=== PATIENT | male | born 1970 | race Caucasian/White ===

== ENCOUNTER 2017-09-07 08:57 | Outpatient (RCR) | payer MEDICAID, SELFPAY ==
--- NOTE | 2017-09-09 12:03 | HP.PTEVAL_ITS ---
Patient's Visit Information CAYLA GRANADOS is a 47 year old M referred to Physical Therapy by DO DAVID Rios with a diagnosis of RA, bilateral LE edema, cervical spondylosis, low back pain, COPD. Date of Evaluation: 09/07/17 Physical Therapist: Zelalem Aquino - Visit Plan Frequency: 1x/Week Duration: 1 Week Plan: Pt. was assessed for need of motorized wc. He has limited functional mobility and walking upto 115ft. this date. He had marked fatigue and dyspnea limiting further ambulation. He also reported increased lumbar spine and BLE pain contributing to his difficulty walking. - Subjective Subjective: Pt. is here today for his initial evaluation with diagnosis of RA, BLE edema, cervical spondylosis, morbid obesity, low back pain, and COPD. Pt. reports having increased difficulty with walking, increased pain, increased UB tremmoring, and increased difficulty with breathing with all functional mobility. Pt. reports increased low back pain, cervical pain, BLE pain with all functional mobility. Pt. is currently on 4L of continous O2 with all mobility, but continues to report increased fatigue. Pt. reports staying within home due to frequent fatigue and difficulty walking. He only leaves for short distances and to go to physician office. He has previously went to grocery store with use of motorized wc, but even walking through parking lot is giving him difficulty. He also reports new onset of RUE tremmoring, but does not know cause. He has a history of neck and back pain that also causes his difficulty with walking for more than short distances. He is talking meds for pain, RA, COPD. He is hopeful to get a WC to allow for him to be more active with his family and get out in to community with increased tolerance. - Pain Bilateral LEs Pain Intensity (Out of 10): 2 Pain Intensity Range: 6 Lumbar spine Pain Intensity (Out of 10): 3 Pain Intensity Range: 1, 6 Cervical spine Pain Intensity (Out of 10): 3 Pain Intensity Range: 1, 6 - Objective POSTURE: Pt. is morbidly obese. Pt. has fwrd flexed posture throughout. Pt. has wide JOEL in stance. Pt. has difficulty correcting posture. Pt. has FH and rounded shoulders. PALPATION: Pt. has increased tenderness throughout bilateral LEs from ankle down. Pt. has increased lumbar spine paraspinal pain, and cervical erector spinea pain. NEUROLOGICAL: Pt. reports deminished sensation to light touch, but normal sensation to sharp touch throughout bilateral LEs. Pt. has 2+ achilles and patellar DTR. Pt. has difficulty with rising on heels and toes, uses balance aide to correct. BALANCE: FGA 06/01. ROM : Pt. has normal knee and hip ROM, tight HS. LUMBAR SPINE: flexion mod loss increase NW, ext mod loss increase NW, SB mod loss increase NW bilat, rotatioon mod loss increase NW bilat. MMT: RLE- ankle 5/5 throughout; knee- ext 4/5, flexion 4/5; hip- flexion 4-/5, abd 4-/5, ext 4/5. LLE- ankle 5/5 throughout; knee ext 4/5, flexion 4/5; hip- flexion 4-/5, abd 4-/5, ext 4/5. Core strength- poor. GAIT: Pt. ambulates with single point cane. He has wide JOEL with frequent standing rest periods. He was able to ambulate 115ft., but required 3 minutes and 27secs to ambulated that far. Pt. has SpO2 of 98% at start dropped to 89% at end. Pt. had visible dyspnea and reports increased pain in BLEs and lumbar spine limiting ambulation. Pt. has LOB x1, but able to self correct with retro stepping pattern. STAIRS: Pt. was able to negotiate 3 steps with BHR, but had difficulty descending. Pt. reports high levels of dyspnea and SpO2 of 91% after trial. - Balance Scores Functional Gait Assessment Score: 10 % Disability: 66.6700 - Goals Goal 1:: Pt. to be assessed for need for WC. - Rehabilitation Potential Physical Therapy Diagnosis: Pt. has signs and symptoms consistent with difficulty with gait, and functional mobility secondary to RA, COPD and BLE/ spinal pain. Pt. has diffiuclty walking distances greater than 120ft., he is able to complete all transfers, but community mobility is reduced due to pain and COPD. Pt would benefit from a wheel chair to allow for increased community mobility and increased independence in community. He would most likely be limited with similar issues with manual wc due to limited cardiovascular fitness where as a motorized chair would provide greater freedom. Rehabilitation Potential: Fair - Anticipated Interventions Patient/Client Instruction: Educate patient on: Condition, Plan of Care, Risk Factors, Benefits of Fitness Program For the Purpose of:: To improve health and function, To foster healthy habits, To improve decision making, To facilitate caregiver knowledge, To improve self management, To prevent re-injury, To improve ability to perform tasks related to life management, To improve tolerance to ADL's Therapeutic Exercise to Include: Strength training, Power training, Postural training, Flexibilty training, Gait and locomotor training, Passive ROM, Active ROM For the Purpose of:: To decrease pain, To increase ROM, To improve nutrient delivery to tissue Thank you for the opportunity to evaluate your patient. For Medicare and Medicare HMO plans, please review the plan of care and approve it. It will need to be FAXED BACK to us at [phone] for Medicare purposes. Please let me know if there are questions or concerns regarding this plan of care. Physician Signature: Date:
--- NOTE | 2018-01-03 19:56 | HP.PT.NRP ---
HP - Discharge Summary (1) - Patient Information CAYLA GRANADOS was seen in my office for initial evaluation on 09/07/17. The following Plan of Care was established for this patient: Initial Frequency: 1x/Week Initial Duration: 1 Week - Anticipated Interventions Patient/Client Instruction: Educate patient on: Condition, Plan of Care, Risk Factors, Benefits of Fitness Program For the Purpose of:: To improve health and function, To foster healthy habits, To improve decision making, To facilitate caregiver knowledge, To improve self management, To prevent re-injury, To improve ability to perform tasks related to life management, To improve tolerance to ADL's Therapeutic Exercise to Include: Strength training, Power training, Postural training, Flexibilty training, Gait and locomotor training, Passive ROM, Active ROM For the Purpose of:: To decrease pain, To increase ROM, To improve nutrient delivery to tissue This patient was last seen in our office 09/07/17. Pertinent comments regarding their Physical therapy will appear below: Pt. was seen for WC evaluation. Pt. has not been seen since. See evaluation for recommendations. Pt. will be DC from PT at this point in time. At this point I will be discontinuing this patient from physical therapy. I would be happy to see this patient again in the future if found appropriate by the physician. Thank you! Zelalem Aquino
== END 2017-09-07 19:00 | disposition home or self-care (01) ==
LOC: PT 08:57
PROVIDERS: Family Provider Family Medicine; PCP Family Medicine; Visit Provider Family Medicine
DX: M06.9 Rheumatoid arthritis, unspecified (principal); R60.9 Edema, unspecified; M47.812 Spondylosis without myelopathy or radiculopathy, cervical region; E66.01 Morbid (severe) obesity due to excess calories; M54.5 Low back pain; J44.9 Chronic obstructive pulmonary disease, unspecified
CPT/HCPCS: 97163

== ENCOUNTER → 2017-12-10 07:59 | Outpatient (CLI) | payer MEDICAID, SELFPAY ==
[2017-12-10 12:36] LABS: Absolute Lymphocyte Count 2.23 X10^3/ul (0.83-4.51); Absolute Neutrophil Count 4.3 X10^3/uL (2.0-7.7); Basophil# 0.03 X10^3/uL; Basophil% 0.4 % (0-1); Eosinophils% 2.7 % (0-5); Erythrocyte Sedimentation Rate 46 mm/hr (0-15); Hematocrit 40.5 % (40-54); Hemoglobin 12.5 g/dl (13.0-16.5); Lymphocyte # 2.23 X10^3/ul (4.0); Lymphocyte % 30.4 % (19-41); Mean Corp Hgb Conc 30.9 g/gl (32-36); Mean Corpuscular Hgb 28.1 pg (27.0-32.0); Monocyte# 0.55 X10^3/uL; Monocyte% 7.5 % (0-10); Neutrophil # 4.32 X10^3/uL (2.7-7.7); Neutrophil % 58.9 % (47-70); Platelet Count 266 K/mm3 (150-450); RBC Distribution Width CV 14.4 % (11.6-14.6); RBC Distribution Width SD 47.2 fl (35.1-43.9); Red Blood Count 4.45 M/mm3 (4.6-6.2); White Blood Count 7.3 K/mm3 (4.4-11.0)
[2017-12-10 12:48] LABS: POSITIVE COUNT NO; POSITIVE DIFFERENTIAL NO; POSITIVE MORPHOLOGY NO
[2017-12-10 12:56] LABS: Hemoglobin A1c 6.8 % (4.2-6.3)
[2017-12-10 12:59] LABS: ALB/GLOB Ratio 0.7 RATIO (0.9-2.4); AST(SGOT) 20 U/L (15-37); Alanine Aminotransfer ALT/SGPT 23 U/L (16-61); Albumin, Serum 2.9 g/dL (3.2-5.0); Alkaline Phosphatase 79 U/L (45-117); Anion Gap 10 (5-15); BUN 6 mg/dL (7-18); BUN/Creat Ratio 5.6 RATIO (10-20); Calcium,Total 8.7 mg/dL (8.5-10.1); Chloride 102 mmol/L (98-107); Cholesterol 182 mg/dL (200); Creatinine, Serum 1.07 mg/dL (0.70-1.30); EST Glomerular Filtration Rate 78 mL/min (>60); Est Glom Filt Rate - Afr Amer 95 mL/min (>60); Globulin 4.3 g/dL (2.2-4.2); Glucose 99 mg/dL (74-106); High Density Lipoprotein 31 mg/dL; Potassium 3.7 mmol/L (3.5-5.1); Protein, Total 7.2 g/dL (6.4-8.2); Sodium Level 140 mmol/L (136-145); Thyroid Stim Hormone (TSH) 2.53 uIU/mL (0.358-3.74); Triglycerides 153 mg/dL; Very Low Density Lipoprotein 31 mg/dL (5-40)
== END ==
PROVIDERS: Family Provider Family Medicine; PCP Family Medicine; Visit Provider Family Medicine
DX: E03.9 Hypothyroidism, unspecified (principal); E11.9 Type 2 diabetes mellitus without complications; E78.5 Hyperlipidemia, unspecified; R60.9 Edema, unspecified; M06.9 Rheumatoid arthritis, unspecified
CPT/HCPCS: 36415; 80053; 80061; 83036; 84443; 85025; 85652; 86140

== ENCOUNTER 2017-12-17 11:13 | Outpatient (RCR) | payer MEDICAID, SELFPAY ==
--- NOTE | 2017-12-21 14:32 | HP.OTEVAL_ITS ---
Patient's Visit Information CAYLA GRANADOS is a 47 year old M, referred to Occupational Therapy by Clau Simeon MD, with a diagnosis of BLE lymphedema venous insuficincy. Date of Evaluation: 12/17/17 Occupational Therapist: Viviana Yeung, CLARENCE/Natan, CHT - Subjective Subjective: Pt states he has RA and pt states he has done two infusions for the past year- pt states he is having difficuty with swelling in his legs-pt states his legs are hurting and the top of his feet hurt. pt states he has used diabetic socks. pt states he has gained 83# of water with prednozone. Pt states the water pill is helpful. - Pain bilateral LE 3 Pain Intensity Range: 3, 9 - Lymphedema (Circumferential Measure) Ankle: Right 36 left 36 Lower calf: right 38 left 39 Largest calf: right 55 left 57 Below knee: right 47 left 46 - Lower Limb Functional Index Lower Extremity Functional Score: 19 - Goals Demonstrate a 20% reduction in edema by d/c: Yes Demonstrate adequate knowledge of self-bangaging by 1st week: Yes Demonstrate adequate knowledge of self-massage by 2nd week: Yes Demonstrate adequate knowledge skin care/prec by 2nd week: Yes Demonstrate adequate knowledge therapeutic exercises by d/c: Yes Select approp compression garment w/donning/care/wear by d/c: Yes - Rehabilitation General Assessment: Pt demo with BLE edema- noted pitting- pt demo need for compression socks and ed. on circulation and lymphedema mtg. pt was ed. on compression socks 20-30mmHg knee high- pt aslo ed on alternative compression garments with velcro closer- pt demo understanding. pt was also ed on beneficial ex to assist with fluid circulation. pt demo understanding. pt ed. this session on skin care and precautions, pt demo understanding. Rehabilitation Potential: Questionable - Anticipated Interventions Anticipated Interventions: Education re Diagnosis, Manual Lymph Drainage, Education re Life-long lymphedema Management, Education re Self-Bandaging Techniques, Education re Skin Care and Precautions, Education re Self Massage Techniques, Education re Correct Donning Tech,Care&Wearing Sched Comp Garments, Caregiver Training, Home Program - Visit Plan Frequency: 1x/Week Duration: 4 Weeks TEXT: Thank you for the opportunity to evaluate your patient. For Medicare and Medicare HMO plans, please review the plan of care and approve it. It will need to be FAXED BACK to us at [phone] for Medicare purposes. Please let me know if there are questions or concerns regarding this plan of care. Physician Signature: Date:
--- NOTE | 2018-01-12 11:30 | HP.OT.NRP ---
HP - Discharge Summary - Patient Information CAYLA GRANADOS was seen in my office for initial evaluation on 12/17/17. The following Plan of Care was established for this patient: Initial Frequency: 1x/Week Initial Duration: 4 Weeks - Anticipated Interventions Anticipated Interventions: Education re Diagnosis, Manual Lymph Drainage, Education re Life-long lymphedema Management, Education re Self-Bandaging Techniques, Education re Skin Care and Precautions, Education re Self Massage Techniques, Education re Correct Donning Tech,Care&Wearing Sched Comp Garments, Caregiver Training, Home Program This patient was last seen in our office 12/17/17. Pertinent comments regarding their Occupational therapy will appear below: Pt was seen for intial OT eval only- no further apts have been scheduled - pt is D/C at no further apts have been scheduled. At this point I will be discontinuing this patient from occupational therapy. I would be happy to see this patient again in the future if found appropriate by the physician. Thank you! Viviana Yeung, OTR/L, CHT
== END 2017-12-17 19:00 | disposition home or self-care (01) ==
LOC: OT 11:13
PROVIDERS: Family Provider Family Medicine; PCP Family Medicine; Visit Provider Family Medicine
DX: R60.9 Edema, unspecified (principal)
CPT/HCPCS: 97166

== ENCOUNTER → 2017-12-22 09:41 | Outpatient (CLI) | payer MEDICAID, SELFPAY | PROVIDERS: Family Provider Family Medicine; PCP Family Medicine; Visit Provider Family Medicine | DX: M54.5 Low back pain (principal) | CPT/HCPCS: 87086; 87088 ==

== ENCOUNTER → 2018-08-27 08:07 | Outpatient (CLI) | payer MEDICAID, SELFPAY ==
[2018-08-27 12:13] LABS: Erythrocyte Sedimentation Rate 36 mm/hr (0-15)
[2018-08-27 12:29] LABS: ALB/GLOB Ratio 0.7 RATIO (0.9-2.4); AST(SGOT) 9 U/L (15-37); Alanine Aminotransfer ALT/SGPT 33 U/L (16-61); Alkaline Phosphatase 105 U/L (45-117); Anion Gap 9 (5-15); BUN 17 mg/dL (7-18); BUN/Creat Ratio 15.3 RATIO (10-20); Calcium,Total 9.3 mg/dL (8.5-10.1); Chloride 101 mmol/L (98-107); Cholesterol 224 mg/dL (200); Creatinine, Serum 1.11 mg/dL (0.70-1.30); EST Glomerular Filtration Rate 75 mL/min (>60); Est Glom Filt Rate - Afr Amer 91 mL/min (>60); Free T3 2.3 pg/mL (2.18-3.98); Globulin 4.6 g/dL (2.2-4.2); Glucose 115 mg/dL (74-106); High Density Lipoprotein 66 mg/dL; Potassium 4.2 mmol/L (3.5-5.1); Protein, Total 7.6 g/dL (6.4-8.2); Sodium Level 139 mmol/L (136-145); T4 Free Direct 1.42 ng/dL (0.76-1.46); Thyroid Stim Hormone (TSH) 1.31 uIU/mL (0.358-3.74); Triglycerides 112 mg/dL; Very Low Density Lipoprotein 22 mg/dL (5-40); Vitamin B12 533 pg/mL (211-911); Vitamin D,25 Hydroxy 15.8 ng/mL (29.95-100.01)
[2018-08-27 12:34] LABS: Absolute Lymphocyte Count 4.32 X10^3/ul (0.83-4.51); Basophil# 0.03 X10^3/uL; Basophil% 0.2 % (0-1); Eosinophil# 0.09 X10^3/uL; Eosinophils% 0.5 % (0-5); Lymphocyte # 4.32 X10^3/ul (4.0); Lymphocyte % 23.3 % (19-41); Mean Corp Hgb Conc 30.6 g/gl (32-36); Mean Corpuscular Hgb 26.5 pg (27.0-32.0); Mean Corpuscular Volume 86.6 fL (80-94); Monocyte# 0.99 X10^3/uL; Monocyte% 5.3 % (0-10); Neutrophil # 12.96 X10^3/uL (2.7-7.7); Neutrophil % 70.1 % (47-70); Platelet Count 319 K/mm3 (150-450); RBC Distribution Width CV 16.6 % (11.6-14.6); RBC Distribution Width SD 52.7 fl (35.1-43.9); Red Blood Count 5.66 M/mm3 (4.6-6.2); White Blood Count 18.5 K/mm3 (4.4-11.0)
[2018-08-27 12:36] LABS: POSITIVE COUNT NO; POSITIVE DIFFERENTIAL NO; POSITIVE MORPHOLOGY NO
[2018-08-30 08:38] LABS: CCP IgG Antibodies > 250 units (0-19)
== END ==
LOC: LAB.FUTURE 07-18 23:20 → BFHLAB 08-08 09:43
PROVIDERS: Family Provider Family Medicine; PCP Family Medicine; Visit Provider Family Medicine
DX: M06.9 Rheumatoid arthritis, unspecified (principal); E11.9 Type 2 diabetes mellitus without complications; E03.9 Hypothyroidism, unspecified; R60.9 Edema, unspecified; M79.7 Fibromyalgia; E55.9 Vitamin D deficiency, unspecified; E53.8 Deficiency of other specified B group vitamins; R53.83 Other fatigue
CPT/HCPCS: 36415; 80053; 80061; 82306; 82607; 84439; 84443; 84481; 85025; 85652; 86140; 86200

== ENCOUNTER → 2018-10-27 09:58 | Outpatient (CLI) | payer MEDICAID, SELFPAY ==
--- NOTE | 2018-10-27 10:03 | RAD_ITS ---
STUDY: X-RAY - LEFT RADIUS AND ULNA REASON FOR EXAM: Male, 48 years old. Sized pain in the left arm without trauma. TECHNIQUE: 2 view(s) of the forearm. COMPARISON: Left wrist and left humerus, October 27, 2018. FINDINGS: There is no demonstrated soft tissue swelling. Normal visualized radius. Normal visualized ulna. There is no acute fracture, dislocation or destructive osseous pathology. The wrist and elbow are grossly normal. RAD/Forearm 2 Views IMPRESSION: Normal x-ray examination of the radius and ulna. Electronically Signed: David Nagy DO at 15:19 EDT Tel [phone], Service support ,
--- NOTE | 2018-10-27 10:03 | RAD_ITS ---
STUDY: X-RAY - LEFT HUMERUS REASON FOR EXAM: Male, 48 years old. Nontraumatic pain in the left arm. TECHNIQUE: 4 view(s) of the humerus. COMPARISON: None. FINDINGS: There is a large bone island in the neck of the humeral neck. There is no acute fracture or dislocation. Both the shoulder and elbow appear grossly normal. There is no demonstrated fracture or osseous destructive process. There is no demonstrated soft tissue abnormality. RAD/Humerus min 2 Views IMPRESSION: No acute abnormality of the left humerus. Electronically Signed: David Nagy DO at 15:19 EDT Tel [phone], Service support ,
--- NOTE | 2018-10-27 10:03 | RAD_ITS ---
STUDY: X-RAY CHEST REASON FOR EXAM: Male, 48 years old. . TECHNIQUE: PA and lateral views of the chest. COMPARISON: July 14, 2017. FINDINGS: The lungs are well-expanded. A stable calcified granuloma in the right upper lobe. No new masses or infiltrates are seen. There is no demonstrated pleural abnormality. Normal size heart. Normal mediastinum and albin. Normal visualized pulmonary arteries. Normal visualized aortic arch and descending thoracic aorta. There are diffuse degenerative changes of the visualized thoracic spine. Normal visualized ribs, clavicles, and shoulders. There is no demonstrated abnormality of the visualized soft tissue structures of the upper abdomen. RAD/Chest PA and Lateral IMPRESSION: Old granulomatous disease without acute cardiopulmonary process or interval change. Electronically Signed: David Nagy DO at 15:20 EDT Tel [phone], Service support ,
--- NOTE | 2018-10-27 10:06 | RAD_ITS ---
STUDY: X-RAY - LEFT WRIST REASON FOR EXAM: Male, 48 years old. Pain without injury. TECHNIQUE: 3 view(s) of the wrist were obtained. COMPARISON: None. FINDINGS: Normal visualized distal radius and ulna. Normal radiocarpal articulation. Normal distal radioulnar articulation. Normal carpal bones. Normal carpal articulations. Normal carpometacarpal articulation of the thumb. Normal second through fifth carpometacarpal articulations. Normal visualized metacarpal bones. The soft tissue structures are unremarkable. RAD/Wrist min 3 Views IMPRESSION: Normal x-ray examination of the wrist. Electronically Signed: David Nagy DO at 15:18 EDT Tel [phone], Service support ,
[2018-10-27 12:43] LABS: Absolute Lymphocyte Count 4.05 X10^3/ul (0.83-4.51); Absolute Neutrophil Count 11.1 X10^3/uL (2.0-7.7); Basophil# 0.04 X10^3/uL; Basophil% 0.2 % (0-1); Eosinophil# 0.17 X10^3/uL; Eosinophils% 1.1 % (0-5); Hematocrit 48.1 % (40-54); Hemoglobin 14.6 g/dl (13.0-16.5); Lymphocyte # 4.05 X10^3/ul (4.0); Mean Corp Hgb Conc 30.4 g/gl (32-36); Mean Corpuscular Hgb 27.7 pg (27.0-32.0); Mean Corpuscular Volume 91.3 fL (80-94); Mean Platelet Vol. 10.1 fl (6.2-12.0); Monocyte# 0.74 X10^3/uL; Monocyte% 4.6 % (0-10); Neutrophil % 68.5 % (47-70); Platelet Count 285 K/mm3 (150-450); RBC Distribution Width CV 15.4 % (11.6-14.6); RBC Distribution Width SD 50.4 fl (35.1-43.9); Red Blood Count 5.27 M/mm3 (4.6-6.2); White Blood Count 16.2 K/mm3 (4.4-11.0)
[2018-10-27 12:44] LABS: POSITIVE COUNT NO; POSITIVE DIFFERENTIAL NO; POSITIVE MORPHOLOGY NO
[2018-10-27 13:23] LABS: ALB/GLOB Ratio 0.7 RATIO (0.9-2.4); AST(SGOT) 13 U/L (15-37); Alanine Aminotransfer ALT/SGPT 31 U/L (16-61); Alkaline Phosphatase 123 U/L (45-117); Anion Gap 9 (5-15); BUN 8 mg/dL (7-18); Calcium,Total 9.2 mg/dL (8.5-10.1); Chloride 101 mmol/L (98-107); EST Glomerular Filtration Rate 84 mL/min (>60); Est Glom Filt Rate - Afr Amer 102 mL/min (>60); Globulin 4.4 g/dL (2.2-4.2); Glucose 144 mg/dL (74-106); Potassium 3.6 mmol/L (3.5-5.1); Protein, Total 7.4 g/dL (6.4-8.2); Sodium Level 138 mmol/L (136-145)
== END ==
LOC: LAB.FUTURE 07-20 08:15 → MTLAB 08-08 09:43
PROVIDERS: Family Provider Family Medicine; PCP Family Medicine; Referring Provider Family Medicine; Visit Provider Family Medicine
DX: M06.9 Rheumatoid arthritis, unspecified (principal); R53.83 Other fatigue; M79.602 Pain in left arm; M25.532 Pain in left wrist; R05 Cough; Z51.81 Encounter for therapeutic drug level monitoring
CPT/HCPCS: 36415; 71046; 73060; 73090; 73110; 80053; 85025

== ENCOUNTER → 2019-02-16 | Outpatient (CLI) | payer MEDICAID, SELFPAY ==
--- NOTE | 2019-02-16 10:00 | LES_PTH ---
PATIENT: CAYLA GRANADOS LOC: [facility] U#:[id number] AGE/SX: 48/M ROOM: RE02/16/[address]: Dr. Ida Norris DO : 1970 BED: DIS: 02/16/2019 SPEC #: [id number] RECD: 02/16/19 11:47 STATUS: JOSH CASSIE #: [id number] ROSIE: 02/16/19 10:[address]: Ida Norris DEPT: SURGICAL PATHOLOGY RECD BY: Piter Amador Tissues: Skin of forearm, NOS Procedures: Surgery Specimen Level IV HEADER OPERATION: Punch biopsy left lateral forearm PRE-OP DIAGNOSIS: Folliculitis vs rheumatoid nodule TISSUE SUBMITTED: Left lateral forearm MICROSCOPIC DIAGNOSIS Left forearm skin, punch biopsy: Keratin debris in deep dermis. Minimal chronic perivascular inflammation. No evidence of malignancy. AM:wilfrido 02/17/19 COMMENT No distinct rheumatoid nodule is identified. If a lesion is present at this site, re-biopsy is recommended if clinically indicated. Case has been reviewed in consultation with Dr. De Los Santos who concurs with the above diagnosis. IDC:SJ MICROSCOPIC DESCRIPTION Slides are reviewed. GROSS DESCRIPTION Received is one container labeled with the patient's name and not further designated. The specimen consists of a round piece of pradhan-white shaved skin measuring 0.4 x 0.4 x 0.2 cm. The entire specimen is submitted in one cassette. / PRIYA:wilfrido 02/16/19 TC:5 CPT: 17394
== END | disposition home or self-care (01) ==
LOC: BFHLAB 10:41
PROVIDERS: Family Provider Family Medicine; PCP Family Medicine; Visit Provider Family Medicine
DX: L08.9 Local infection of the skin and subcutaneous tissue, unspecified (principal)
CPT/HCPCS: 88305

== ENCOUNTER → 2019-04-06 | Outpatient (CLI) | payer MEDICAID, SELFPAY ==
[2019-04-06 10:19] LABS: Erythrocyte Sedimentation Rate 38 mm/hr (0-15)
[2019-04-06 10:22] LABS: Absolute Lymphocyte Count 4.26 X10^3/uL (0.83-4.51); Absolute Neutrophil Count 10.8 X10^3/uL (2.0-7.7); Basophil# 0.07 X10^3/uL; Basophil% 0.4 % (0-1); Eosinophil# 0.13 X10^3/uL; Eosinophils% 0.8 % (0-5); Hematocrit 46.7 % (40-54); Hemoglobin 13.9 g/dL (13.0-16.5); Lymphocyte # 4.26 X10^3/ul (4.0); Lymphocyte % 26.6 % (19-41); Mean Corp Hgb Conc 29.8 g/dL (32-36); Mean Corpuscular Hgb 26.7 pg (27.0-32.0); Mean Corpuscular Volume 89.6 fL (80-94); Monocyte# 0.73 X10^3/uL; Monocyte% 4.6 % (0-10); NRBC Flagged by Analyzer 0 % (0-5); Neutrophil # 10.76 X10^3/uL (2.7-7.7); Neutrophil % 67.1 % (47-70); Platelet Count 306 K/mm3 (150-450); RBC Distribution Width CV 13.9 % (11.6-14.6); RBC Distribution Width SD 45.1 fl (35.1-43.9); Red Blood Count 5.21 M/mm3 (4.6-6.2)
[2019-04-06 10:51] LABS: Vitamin B12 296 pg/mL (211-911); Vitamin D,25 Hydroxy 22.4 ng/mL (29.95-100.01)
[2019-04-06 11:04] LABS: ALB/GLOB Ratio 0.6 RATIO (0.9-2.4); AST(SGOT) 9 U/L (15-37); Alanine Aminotransfer ALT/SGPT 21 U/L (16-61); Albumin, Serum 2.8 g/dL (3.2-5.0); Alkaline Phosphatase 99 U/L (45-117); Anion Gap 9 (5-15); BUN 12 mg/dL (7-18); BUN/Creat Ratio 12.2 RATIO (10-20); Calcium,Total 8.8 mg/dL (8.5-10.1); Chloride 101 mmol/L (98-107); Cholesterol 217 mg/dL (200); Creatinine, Serum 0.98 mg/dL (0.70-1.30); EST Glomerular Filtration Rate 86 mL/min (>60); Est Glom Filt Rate - Afr Amer 104 mL/min (>60); Free T3 2.3 pg/mL (2.18-3.98); Globulin 4.4 g/dL (2.2-4.2); Glucose 93 mg/dL (74-106); High Density Lipoprotein 53 mg/dL; Iron 63 ug/dL (65-175); Potassium 3.5 mmol/L (3.5-5.1); Protein, Total 7.2 g/dL (6.4-8.2); Sodium Level 141 mmol/L (136-145); T4 Free Direct 1.59 ng/dL (0.76-1.46); Thyroid Stim Hormone (TSH) 0.82 uIU/mL (0.358-3.74); Triglycerides 119 mg/dL; Very Low Density Lipoprotein 24 mg/dL (5-40)
[2019-04-08 12:30] LABS: CCP IgG Antibodies > 250 units (0-19)
== END | disposition home or self-care (01) ==
PROVIDERS: Family Provider Family Medicine; PCP Family Medicine; Referring Provider Family Medicine; Visit Provider Family Medicine
DX: E11.9 Type 2 diabetes mellitus without complications (principal); M06.9 Rheumatoid arthritis, unspecified; R60.9 Edema, unspecified; E78.5 Hyperlipidemia, unspecified; E03.9 Hypothyroidism, unspecified; R53.83 Other fatigue; E55.9 Vitamin D deficiency, unspecified; E53.8 Deficiency of other specified B group vitamins; D64.9 Anemia, unspecified; Z51.81 Encounter for therapeutic drug level monitoring
CPT/HCPCS: 36415; 80053; 80061; 82306; 82607; 83540; 84439; 84443; 84481; 85025; 85652; 86140; 86200

== ENCOUNTER → 2019-08-29 08:27 | Outpatient (CLI) | payer MEDICAID, SELFPAY ==
[2019-08-29 12:21] LABS: Erythrocyte Sedimentation Rate 76 mm/hr (0-20)
[2019-08-29 12:24] LABS: Absolute Lymphocyte Count 3.95 X10^3/uL (0.83-4.51); Absolute Neutrophil Count 10.2 X10^3/uL (2.0-7.7); Basophil# 0.07 X10^3/uL; Basophil% 0.5 % (0-1); Eosinophil# 0.22 X10^3/uL; Eosinophils% 1.4 % (0-5); Hematocrit 46.5 % (40-54); Hemoglobin 13.4 g/dL (13.0-16.5); Lymphocyte # 3.95 X10^3/ul (4.0); Lymphocyte % 25.9 % (19-41); Mean Corp Hgb Conc 28.8 g/dL (32-36); Mean Corpuscular Hgb 24.7 pg (27.0-32.0); Mean Corpuscular Volume 85.8 fL (80-94); Mean Platelet Vol. 9.5 fl (6.2-12.0); Monocyte# 0.71 X10^3/uL; Monocyte% 4.7 % (0-10); NRBC Flagged by Analyzer 0 % (0-5); Neutrophil # 10.21 X10^3/uL (2.7-7.7); Neutrophil % 66.8 % (47-70); Platelet Count 316 K/mm3 (150-450); RBC Distribution Width CV 14.8 % (11.6-14.6); RBC Distribution Width SD 46.1 fl (35.1-43.9); Red Blood Count 5.42 M/mm3 (4.6-6.2); White Blood Count 15.3 K/mm3 (4.4-11.0)
[2019-08-29 12:57] LABS: ALB/GLOB Ratio 0.6 RATIO (0.9-2.4); AST(SGOT) 10 U/L (15-37); Alanine Aminotransfer ALT/SGPT 18 U/L (16-61); Albumin, Serum 2.7 g/dL (3.2-5.0); Alkaline Phosphatase 110 U/L (45-117); Anion Gap 7 (5-15); BUN 11 mg/dL (7-18); BUN/Creat Ratio 10.2 RATIO (10-20); Calcium,Total 8.7 mg/dL (8.5-10.1); Chloride 100 mmol/L (98-107); Creatinine, Serum 1.08 mg/dL (0.70-1.30); EST Glomerular Filtration Rate 77 mL/min (>60); Est Glom Filt Rate - Afr Amer 93 mL/min (>60); Free T3 2.8 pg/mL (2.18-3.98); Globulin 4.4 g/dL (2.2-4.2); Glucose 123 mg/dL (74-106); Potassium 3.3 mmol/L (3.5-5.1); Protein, Total 7.1 g/dL (6.4-8.2); Sodium Level 137 mmol/L (136-145); T4 Free Direct 1.36 ng/dL (0.76-1.46); Thyroid Stim Hormone (TSH) 1.22 uIU/mL (0.358-3.74)
[2019-08-31 11:35] LABS: CCP IgG Antibodies > 250 units (0-19)
== END ==
PROVIDERS: PCP Family Medicine; Referring Provider Family Medicine; Visit Provider Family Medicine
DX: M06.9 Rheumatoid arthritis, unspecified (principal); E03.9 Hypothyroidism, unspecified; Z51.81 Encounter for therapeutic drug level monitoring
CPT/HCPCS: 36415; 80053; 84439; 84443; 84481; 85025; 85652; 86140; 86200

== ENCOUNTER → 2019-09-29 | Outpatient (CLI) | payer MEDICAID, SELFPAY ==
--- NOTE | 2019-09-29 06:39 | CT_ITS ---
STUDY: CT BRAIN WITHOUT CONTRAST REASON FOR EXAM: Male, 49 years old. Facial numbness RADIATION DOSAGE (If Supplied By Facility): CTDIvol = ( 44.99 ) mGy, DLP = ( 812.98 ) mGycm TECHNIQUE: Transaxial CT imaging of the brain was performed without administration of intravenous contrast material. Individualized dose optimization techniques were used for this CT. COMPARISON: No relevant priors. FINDINGS: Brain parenchyma is without focal lesions, mass effect, acute intracranial hemorrhage, extra parenchymal fluid collections, hydrocephalus or herniation. The skull is intact. CT/Brain/Head without Contrast IMPRESSION: 1. Normal CT brain. Electronically Signed: Usman Almonte, at 15:19 EST Tel , Service support ,
== END | disposition home or self-care (01) ==
LOC: CT 06:38
PROVIDERS: PCP Family Medicine; Referring Provider Family Medicine; Visit Provider Family Medicine
DX: R20.0 Anesthesia of skin (principal)
CPT/HCPCS: 70450

== ENCOUNTER → 2019-12-06 | Outpatient (CLI) | payer MEDICAID, SELFPAY ==
[2019-12-06 09:52] LABS: Absolute Lymphocyte Count 4.75 X10^3/uL (0.83-4.51); Absolute Neutrophil Count 9.4 X10^3/uL (2.0-7.7); Basophil# 0.08 X10^3/uL; Basophil% 0.5 % (0-1); Eosinophil# 0.31 X10^3/uL; Hematocrit 45.2 % (40-54); Hemoglobin 13.3 g/dL (13.0-16.5); Lymphocyte # 4.75 X10^3/ul (4.0); Mean Corp Hgb Conc 29.4 g/dL (32-36); Mean Corpuscular Hgb 25.6 pg (27.0-32.0); Mean Corpuscular Volume 86.9 fL (80-94); Monocyte# 0.68 X10^3/uL; Monocyte% 4.4 % (0-10); NRBC Flagged by Analyzer 0 % (0-5); Neutrophil # 9.39 X10^3/uL (2.7-7.7); Neutrophil % 61.5 % (47-70); Platelet Count 318 K/mm3 (150-450); RBC Distribution Width CV 16.2 % (11.6-14.6); RBC Distribution Width SD 49.6 fl (35.1-43.9); White Blood Count 15.3 K/mm3 (4.4-11.0)
[2019-12-06 10:05] LABS: Erythrocyte Sedimentation Rate 46 mm/hr (0-20)
[2019-12-06 10:12] LABS: ALB/GLOB Ratio 0.6 RATIO (0.9-2.4); AST(SGOT) 13 U/L (15-37); Alanine Aminotransfer ALT/SGPT 20 U/L (16-61); Albumin, Serum 2.7 g/dL (3.2-5.0); Alkaline Phosphatase 109 U/L (45-117); Anion Gap 6 (5-15); BUN 8 mg/dL (7-18); BUN/Creat Ratio 7.7 RATIO (10-20); Chloride 102 mmol/L (98-107); Creatinine, Serum 1.04 mg/dL (0.70-1.30); EST Glomerular Filtration Rate 80 mL/min (>60); Est Glom Filt Rate - Afr Amer 97 mL/min (>60); Free T3 2.9 pg/mL (2.18-3.98); Globulin 4.4 g/dL (2.2-4.2); Glucose 118 mg/dL (74-106); Iron 39 ug/dL (65-175); Potassium 3.8 mmol/L (3.5-5.1); Protein, Total 7.1 g/dL (6.4-8.2); Sodium Level 137 mmol/L (136-145); T4 Free Direct 1.54 ng/dL (0.76-1.46); Thyroid Stim Hormone (TSH) 1.95 uIU/mL (0.358-3.74)
== END | disposition home or self-care (01) ==
LOC: MTLAB 07:19
PROVIDERS: PCP Family Medicine; Referring Provider Family Medicine; Visit Provider Family Medicine
DX: M06.9 Rheumatoid arthritis, unspecified (principal); G89.29 Other chronic pain; E03.9 Hypothyroidism, unspecified; E11.9 Type 2 diabetes mellitus without complications; R53.83 Other fatigue
CPT/HCPCS: 36415; 80053; 82306; 83540; 84439; 84443; 84481; 85025; 85652; 86140

== ENCOUNTER → 2020-02-07 | Outpatient (CLI) | payer MEDICAID, SELFPAY ==
[2020-02-07 13:00] LABS: Anion Gap 5 (5-15); BUN 9 mg/dL (7-18); BUN/Creat Ratio 8.3 RATIO (10-20); Calcium,Total 8.8 mg/dL (8.5-10.1); Chloride 103 mmol/L (98-107); Creatinine, Serum 1.09 mg/dL (0.70-1.30); EST Glomerular Filtration Rate 76 mL/min (>60); Est Glom Filt Rate - Afr Amer 92 mL/min (>60); Glucose 106 mg/dL (74-106); Potassium 4.5 mmol/L (3.5-5.1); Sodium Level 138 mmol/L (136-145)
== END | disposition home or self-care (01) ==
LOC: BFHLAB 09:47
PROVIDERS: PCP Family Medicine; Visit Provider Family Medicine
DX: E86.0 Dehydration (principal)
CPT/HCPCS: 36415; 80048

== ENCOUNTER → 2020-04-23 | Outpatient (CLI) | payer MEDICAID, SELFPAY ==
--- NOTE | 2020-04-23 10:03 | VDLE_ITS ---
Reason For Study: Leg pain RIGHT LEFT GSV is normal. GSV is normal. CFV is compressible, spontaneous, phasic, CFV is compressible, spontaneous, phasic, competent and demonstrates normal competent, and demonstrates normal augmentation. augmentation. FV is compressible, spontaneous, phasic, FV is compressible, spontaneous, phasic, competent and demonstrates normal competent and demonstrates normal augmentation. augmentation. POP V is compressible, spontaneous, phasic, POP V is compressible, spontaneous, phasic, competent and demonstrates normal competent and demonstrates normal augmentation. augmentation. T/P Trunk is compressible. T/P Trunk is compressible. PTV is compressible. PTV is compressible. RT PerV is compressible. LT PerV is compressible. Thrombus filled varicose veins noted in the right mid calf. Procedure Exam performed in department. A preliminary report was called and/or faxed to Jr. Interpretation Summary Deep veins of the lower extremities are bilaterally patent and compressible segmentally. There is no evidence of deep vein thrombosis on either side. Valvular competence appears intact within the proximal deep venous systems bilaterally. The great saphenous veins appear bilaterally patent and compressible segmentally. Acute superficial thrombophlebitis is noted involving superficial varicosities in the right mid-calf. Ordering Physician: Ida Norris Referring Physician: Ida Norris Performed By: Roselyn Juan RVT and Student
== END | disposition home or self-care (01) ==
PROVIDERS: PCP Family Medicine; Referring Provider Family Medicine; Visit Provider Family Medicine
DX: M79.605 Pain in left leg (principal); M79.604 Pain in right leg; I82.409 Acute embolism and thrombosis of unspecified deep veins of unspecified lower extremity
CPT/HCPCS: 93970

== ENCOUNTER → 2020-06-14 17:49 | Outpatient (CLI) | payer MEDICAID, SELFPAY | PROVIDERS: PCP Family Medicine; Referring Provider Family Medicine; Visit Provider Family Medicine | DX: Z20.828 Contact with and (suspected) exposure to other viral communicable diseases (principal); R43.2 Parageusia | CPT/HCPCS: 87635; C9803; U0003 ==

== ENCOUNTER 2020-06-27 09:03 | Emergency (ER) | payer MEDICAID, SELFPAY ==
[2020-06-27] VITALS (7 sets, daily range): BP systolic 104–125; BP diastolic 57–75; PULSE 99–124; RESP 24–30; TEMP 36.4–37.3; O2SAT 95–98; BMI 57.4
--- NOTE | 2020-06-27 09:18 | EKG12_ITS ---
Test Reason : SOB Blood Pressure : / mmHG Vent. Rate : 122 BPM Atrial Rate : 122 BPM P-R Int : 160 ms QRS Dur : 122 ms QT Int : 328 ms P-R-T Axes : 028 -68 039 degrees QTc Int : 467 ms Sinus tachycardia Right bundle branch block Left anterior fascicular block Bifascicular block Abnormal ECG Confirmed by GODWIN MEZA, EDWARDO ([id number]), acquisition editor ALF RUCKER ([id number]) on 06/29/2020 11:06:00 AM Referred By: SMITHA Confirmed By:EDWARDO CONNELLY MD
[2020-06-27 09:29] LABS: Absolute Lymphocyte Count 4.11 X10^3/uL (0.83-4.51); Absolute Neutrophil Count 22.6 X10^3/uL (2.0-7.7); Basophil# 0.08 X10^3/uL; Basophil% 0.3 % (0-1); Eosinophil# 0.05 X10^3/uL; Eosinophils% 0.2 % (0-5); Hematocrit 42.7 % (40-54); Hemoglobin 12.6 g/dL (13.0-16.5); Lymphocyte # 4.11 X10^3/ul (4.0); Lymphocyte % 14.4 % (19-41); Mean Corp Hgb Conc 29.5 g/dL (32-36); Mean Corpuscular Hgb 24.8 pg (27.0-32.0); Mean Corpuscular Volume 84.1 fL (80-94); Mean Platelet Vol. 9.4 fl (6.2-12.0); Monocyte# 1.29 X10^3/uL; Monocyte% 4.5 % (0-10); NRBC Flagged by Analyzer 0 % (0-5); Neutrophil # 22.58 X10^3/uL (2.7-7.7); Neutrophil % 79.2 % (47-70); POSITIVE DIFFERENTIAL YES; Platelet Count 285 K/mm3 (150-450); RBC Distribution Width CV 14.8 % (11.6-14.6); RBC Distribution Width SD 45.2 fl (35.1-43.9); Red Blood Count 5.08 M/mm3 (4.6-6.2); White Blood Count 28.5 K/mm3 (4.4-11.0)
[2020-06-27 09:32] LABS: Differential Indicated SCAN CRITERIA MET
[2020-06-27 09:46] LABS: ALB/GLOB Ratio 0.5 RATIO (0.9-2.4); AST(SGOT) 14 U/L (15-37); Alanine Aminotransfer ALT/SGPT 18 U/L (16-61); Albumin, Serum 2.3 g/dL (3.2-5.0); Alkaline Phosphatase 99 U/L (45-117); Anion Gap 10 (5-15); BUN 17 mg/dL (7-18); BUN/Creat Ratio 9.4 RATIO (10-20); Calcium,Total 8.5 mg/dL (8.5-10.1); Chloride 98 mmol/L (98-107); EST Glomerular Filtration Rate 43 mL/min (>60); Est Glom Filt Rate - Afr Amer 51 mL/min (>60); Estimated Creatinine Clearance 55.49 ml/min; Globulin 4.4 g/dL (2.2-4.2); Glucose 88 mg/dL (74-106); Potassium 3.4 mmol/L (3.5-5.1); Protein, Total 6.7 g/dL (6.4-8.2); Sodium Level 132 mmol/L (136-145)
--- NOTE | 2020-06-27 09:46 | ED.DCSUM_ITS ---
History of Present Illness Chief Complaint: Shortness of Breath Informant: Patient Narrative: 49 year-old male with past medical history of COPD requiring 4 L of oxygen by nasal cannula, diabetes, hypertension presents with concern for shortness of breath. Patient states that he has had shortness of breath and feeling unwell over the past 1 week. States he was tested for coronavirus 1 week ago which was negative. Patient also states that he has a boil on his buttocks as well as his genitals. States that this is developed over the past 2 days. Denies any dysuria, constipation, diarrhea. Past Medical History - Allergies and Home Meds Allergies/Adverse Reactions: Allergies Penicillins Allergy (Verified 06/27/20 09:03) Hives Sulfa (Sulfonamide Antibiotics) Allergy (Verified 06/27/20 09:03) Hives etanercept [From Enbrel] Adverse Reaction (Verified 06/27/20 09:03) Swelling rivaroxaban [From Xarelto] Adverse Reaction (Verified 06/27/20 09:03) Nausea warfarin sodium [From Coumadin] Adverse Reaction (Verified 06/27/20 09:03) Nausea Primary Care Physician: Ida Norris DO [Primary Care Provider] - Prior records reviewed: Yes Past Medical History: - - DM, HTN, COPD Surgical History: no surgical history, - Lives: Alone Smoking Status: Current every day smoker Alcohol: None Drugs: None Review of Systems General: Reports: Malaise. Denies: Chills, Fever, Sweats Eyes: Denies: Visual changes - bilaterally, Diplopia ENT: Denies: Rhinorrhea, Sore throat Cardiovascular: Denies: Chest pain, Palpitations Respiratory: Reports: Dyspnea. Denies: Cough, Dyspnea on exertion Gastrointestinal: Denies: Abdominal pain, Nausea, Vomiting, Diarrhea, Melena, Hematochezia Genitourinary: Denies: Dysuria, Hematuria, Frequency Musculoskeletal: Denies: Back pain, Extremity Pain Skin: Reports: Abscess. Denies: Rash, Wounds Neurological: Denies: Headache, Weakness, Numbness Physical Exam Vital Signs/Narrative: Vital Signs Temp Pulse Resp BP Pulse Ox 06/27/20 09:35 96 06/27/20 09:34 98.7 F 124 H 26 H 97 06/27/20 09:12 98 06/27/20 09:04 97.5 F L 99 30 H 109/57 L 95 Inital Vital Signs reviewed: Yes General: Well nourished, Well developed, No Acute Distress Head: Normocephalic, Atraumatic Eyes: Perrl, EOMI ENT: Moist mucous membranes, No rhinorrhea Neck: Supple, Nontender Cardiovascular: Regular rhythm, No murmurs, Tachycardia Respiratory: No distress, CTA bilaterally, Chest nontender Abdomen: Soft, Nontender, Nondistended, Normal bowel sounds : - - Erythema and edema of the scrotum. Perineal edema and erythema. No palpable crepitus. Back: Nontender, Normal Inspection Extremities: Nontender, No edema Skin: Normal color, No rash Neurological: Alert, Oriented x3, Cranial nerves II-XII grossly intact, Normal Strength, Normal Sensation Psychological: Normal affect, Normal Mood Diagnostic/Tx/Re-eval Chest X-Ray - ED: 1 View, Read by ED Physician, Normal Laboratory Data 06/27/20 06/27/20 06/27/20 09:15 09:15 09:15 WBC 28.5 H RBC 5.08 Hgb 12.6 L Hct 42.7 MCV 84.1 MCH 24.8 L MCHC 29.5 L RDW Std Deviation 45.2 H RDW Coeff of Kris 14.8 H Plt Count 285 MPV 9.4 Immature Gran % (Auto) 1.400 H Neut % (Auto) 79.2 H Lymph % (Auto) 14.4 L Parmer % (Auto) 4.5 Eos % (Auto) 0.2 Baso % (Auto) 0.3 Absolute Neuts (auto) 22.6 H Absolute Lymphs (auto) 4.11 Nucleated RBC % 0 Differential Comment Platelet Estimate ADEQUATE RBC Morphology NORM C+C PT 24.1 H INR 2.2 APTT 37.5 H Sodium 132 L Potassium 3.4 L Chloride 98 Carbon Dioxide 24.0 Anion Gap 10 BUN 17 Creatinine 1.80 H Estim Creat Clear Calc 55.49 Est GFR (MDRD) Af Amer 51 L Est GFR (MDRD) Non-Af 43 L BUN/Creatinine Ratio 9.4 L Glucose 88 Lactic Acid Calcium 8.5 Total Bilirubin 1.80 H AST 14 L ALT 18 Alkaline Phosphatase 99 Troponin I 0.029 Total Protein 6.7 Albumin 2.3 L Globulin 4.4 H Albumin/Globulin Ratio 0.5 L 06/27/20 09:45 WBC RBC Hgb Hct MCV MCH MCHC RDW Std Deviation RDW Coeff of Kris Plt Count MPV Immature Gran % (Auto) Neut % (Auto) Lymph % (Auto) Parmer % (Auto) Eos % (Auto) Baso % (Auto) Absolute Neuts (auto) Absolute Lymphs (auto) Nucleated RBC % Differential Comment Platelet Estimate RBC Morphology PT INR APTT Sodium Potassium Chloride Carbon Dioxide Anion Gap BUN Creatinine Estim Creat Clear Calc Est GFR (MDRD) Af Amer Est GFR (MDRD) Non-Af BUN/Creatinine Ratio Glucose Lactic Acid 3.3 H* Calcium Total Bilirubin AST ALT Alkaline Phosphatase Troponin I Total Protein Albumin Globulin Albumin/Globulin Ratio - Rhythm Strip Rhythm Strip: Sinus Tach Rate: 122 Ectopy: None - EKG Initial EKG Interpretation: Sinus Tachycardia - Tachycardia 122 bpm. SC interval 160 ms. QTC of 467 ms. Bifascicular block. No acute ischemia at this time. - Medical Decision Making Presents and does appear somewhat ill but nontoxic. Tachycardic but normotensive. Afebrile. Sepsis work-up initiated. Patient was given 1 L normal saline given that we are unclear if this patient has coronavirus at this time. After physical exam patient does have significant erythema and edema of his scrotum as well as perineum. Leukocytosis of 28,000. 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 Patient is allergic to penicillin. Patient was given a second liter of normal saline following a negative coronavirus. [place] body weight of approximately 75 kg. Patient at baseline [address] of the abdomen pelvis delayed secondary to IT issues as well as initial scan not proceeding through his scrotum. CT abdomen pelvis for necrotizing fasciitis of the perineum ascending towards the pelvic cavity. Patient is having significant anxiety about the possibility of emergent surgery was given 0.5 mg of Ativan. Delay in transfer secondary to [facility] as well as [facility] being on diversion and not excepting transfers. Spoke with [facility] who is agreeable with transfer to the emergency department under Dr. Mujica. Critical but stable at time of transfer. Impression: 1. Severe sepsis 2. Chanel's gangrene ED Disposition - Plan for ED Patient: Disposition: [facility] Referrals: Ida Norris DO [Primary Care Provider] -
[2020-06-27 09:51] LABS: International Normalized Ratio 2.2; Partial Thromboplast Time 37.5 Seconds (24.1-36.2); Prothrombin Time (Protime)PT. 24.1 SECONDS (11.7-14.9)
[2020-06-27 10:01] LABS: Platelet Estimate ADEQUATE (ADEQ); Red Cell Morphology NORM C+C NORMAL (NORM C&C)
[2020-06-27] MEDS: 0.9% Normal Saline 1,000 ML 999 ML IV ×2 (10:04→15:29)
[2020-06-27 10:22] LABS: Lactic Acid 3.3 mmol/L (0.4-1.9)
--- NOTE | 2020-06-27 10:30 | CT_ITS ---
INDICATION: Abdominal pain with vomiting, scrotal pain/swelling, hypertension, COPD on home O2. Delayed images included. Prelim already completed. EXAMINATION: CT ABDOMEN AND PELVIS WITH CONTRAST - CT Abdomen And Pelvis W/ Contrast Injection TECHNIQUE: Helically acquired images were obtained of the abdomen and pelvis following IV contrast. A radiation dose optimization technique was used for this scan. IV Contrast dosage and agent: Oral contrast: None. COMPARISON: None. FINDINGS: A CT scan of the lung bases was performed and shows pleural thickening involving the right lung base. The left lung base demonstrates some minimal posterior pleural thickening. No obvious pneumonic infiltrates are seen. The base of the heart is normal. The liver is normal. The spleen is normal. The adrenal glands are normal bilaterally. The head, body, and tail of the pancreas are normal. The right kidney appears to be normal with no evidence of calyceall calculi, mass, or obstructive uropathy. A 2.5 cm simple cyst is seen off the lateral aspect of the left kidney. The remainder the left renal contour is smooth. The left ureter appears to be normal. The abdominal aorta is normal in its course and distribution. No periaortic lymphadenopathy is seen. A CT scan of the pelvis was then reviewed and shows the common iliac vessels, external iliac vessels and common femoral vessels to be normal along their course and distribution. No abnormal intraperitoneal pelvic masses or lesions are seen. The visualized appendix is normal. Additional CT cuts were continued through the lower pelvis into the perianal region. In this location there is gas seen in subcutaneous soft tissues in the right perianal region with some surrounding inflammatory reaction. The extensive inflammatory reaction extends posteriorly into the subcutaneous soft tissues overlying the right infragluteal fold of the right buttock. At this time no obvious abscess is seen. There is inflammatory reaction with skin thickening noted of the scrotum but again, no abscess is identified. Bone scanning windows of the lumbar spine and pelvis were reviewed in the sagittal and coronal planes, and appear to be normal. CT/Abdomen/Pelvis W IV Cont ONLY IMPRESSION: 1. Bibasilar pleural thickening is identified significantly more pronounced on the right. 2. Right perianal soft tissue fasciitis with extension inferiorly and posteriorly to the right infragluteal fold of the right buttock, with inflammatory reaction and subcutaneous soft tissue swelling of the scrotum. Electronically Signed: Maximilian Fraire, at 8:57 EST Tel , Service support ,
--- NOTE | 2020-06-27 10:35 | RAD_ITS ---
STUDY: X-RAY CHEST REASON FOR EXAM: Male, 49 years old. Dyspnea, shortness of breath TECHNIQUE: Frontal view COMPARISON: 10/27/2018 FINDINGS: The lungs are not fully expanded. Slightly elevated right hemidiaphragm. Right upper lobe nodule represents a granuloma. Increasing right basilar and perihilar opacities since previous study. Normal size heart. Normal mediastinum and albin. Normal visualized pulmonary arteries. Normal visualized aortic arch and descending thoracic aorta. Normal visualized thoracic spine. Normal visualized ribs, clavicles, and shoulders. There is no demonstrated abnormality of the visualized soft tissue structures of the upper abdomen. RAD/Chest 1 View (Portable) IMPRESSION: Right pulmonary infiltrate. Electronically Signed: Shamir Dean DO at 15:08 EST Tel [phone], Service support ,
[2020-06-27] MEDS: metroNIDAZOLE 500 MG/100 ML BAG 100 MG IV (10:54)
[2020-06-27] MEDS: LORazepam 2 MG/ML Syringe 0.5 MG IV ×2 (11:41→14:28)
--- NOTE | 2020-06-27 12:12 | ED.RN ---
[facility] NOT TAKING TRANSFERS
--- NOTE | 2020-06-27 12:12 | ED.RN ---
[facility] NOT TAKING TRANSFERS
--- NOTE | 2020-06-27 12:20 | ED.RN ---
DEMOGRAPHIC FAXED TO [facility]
--- NOTE | 2020-06-27 12:32 | ED.RN ---
[facility] CONTACTED FOR TRANSPORT TO [facility]. ETA 90-120 MINUTES. [facility] ASKED TO FIND A TRANSPORT THAT IS AVAILABLE SOONER
--- NOTE | 2020-06-27 12:40 | ED.RN ---
[facility] UNABLE TO FIND ANOTHER COMPANY TO TRANSPORT
[2020-06-27 13:57] LABS: Reflex Lactate? Y
--- NOTE | 2020-06-28 01:07 | ED.RN ---
[facility] called asking for information about atx administration
--- NOTE | 2020-06-28 11:41 | ED.RN ---
ATTEMPT MADE TO CALL RESULTS TO [facility], REPEATEDLY GOT DISCONNECTED UPON TRYING.
== END 2020-06-27 15:32 | disposition short-term general hospital (02) ==
LOC: ED 09:50
PROVIDERS: Emergency Provider Emergency Medicine; PCP Family Medicine
DX: A41.9 Sepsis, unspecified organism (principal); N49.3 Fournier gangrene; R65.20 Severe sepsis without septic shock; J44.9 Chronic obstructive pulmonary disease, unspecified; E11.9 Type 2 diabetes mellitus without complications; I10 Essential (primary) hypertension; F17.200 Nicotine dependence, unspecified, uncomplicated; Z79.2 Long term (current) use of antibiotics; Z99.81 Dependence on supplemental oxygen; Z79.899 Other long term (current) drug therapy
CPT/HCPCS: 71045; 74177; 80053; 83605; 84484; 85025; 85610; 85730; 87040; 87077; 87426; 93005; 96365; 96366; 96367; 96375; 99285; J7030; J7040; Q9967; A4216

== ENCOUNTER 2020-07-07 11:20 | Emergency (ER) | payer MEDICAID, SELFPAY ==
[2020-06-27 09:04] VITALS: BMI 57.4
[2020-07-07 11:21] VITALS: BP 152/62; PULSE 95; RESP 16; TEMP 36.2; O2SAT 94; BMI 57.1
--- NOTE | 2020-07-07 12:12 | ED.RN ---
PT [facility]OUND [facility] APPT ON JUL 10. DISCUSSED NEED FOR DRESSING CHANGES EVERY 12 HOURS. PT CALLED DAUGHTER TO COME IN AND LEARN HOW TO CARE FOR HIS DRESSING.
--- NOTE | 2020-07-07 12:42 | ED.DEP ---
ED Disposition - Plan for ED Patient: Instructions: ED Post Op Wound Check, General Referrals: Ida Norris DO [Primary Care Provider] -
--- NOTE | 2020-07-07 12:45 | ED.DCSUM_ITS ---
- ER Visit Summary Date of Service: 07/07/20 Chief Complaint: Sent for wound dressing History of Present Illness: The patient is a 49 M sent in by his primary care physician to have a dressing placed on his wound. Patient was discharged from [facility] yesterday. He has a large wound to his left buttock. He states when he tried to have a bowel movement his wound VAC came off. He was advised by his primary care physician to come to the ED for wet-to-dry dressing placement. Patient will need to do wet-to-dry dressings until the wound VAC is able to be replaced on Thursday. Physical Examination: Vitals are stable. Patient is afebrile. Alert no acute distress. HEENT exam is unremarkable. Neck is supple. Lungs are clear and equal bilaterally. Heart is regular rate and rhythm. Abdomen is soft obese nontender nondistended. Large left buttock wound Extremities are unremarkable. Skin is warm and dry. No focal neurologic deficit. Remainder of exam is unremarkable. Emergency Department Course and Treatment: Patient is currently on antibiotics and he will continue this. Wet-to-dry dressing was placed. Patient education was given to patient's family in order to change dressing. He will follow-up with wound clinic on Thursday. Advised return to ED for worsening complaints. Disposition: Discharge home Impression: Wound care This note was generated with [employer] dictation software. It may contain incorrect words, spelling, and punctuation that were not noted in review of the chart prior to signing ED Disposition - Plan for ED Patient: Instructions: ED Post Op Wound Check, General Referrals: Ida Norris DO [Primary Care Provider] -
== END 2020-07-07 13:54 | disposition home or self-care (01) ==
LOC: ED 13:14
PROVIDERS: Emergency Provider Emergency Medicine; PCP Family Medicine
DX: Z48.01 Encounter for change or removal of surgical wound dressing (principal); Z72.0 Tobacco use
CPT/HCPCS: 99283

== ENCOUNTER → 2020-07-18 15:04 | Outpatient (CLI) | payer MEDICAID, SELFPAY ==
[2020-07-17 13:18] VITALS: BMI 58.0
[2020-07-18 17:34] LABS: Absolute Lymphocyte Count 1.96 X10^3/uL (0.83-4.51); Basophil# 0.03 X10^3/uL; Basophil% 0.3 % (0-1); Eosinophil# 0.17 X10^3/uL; Eosinophils% 1.4 % (0-5); Hematocrit 41.3 % (40-54); Hemoglobin 11.3 g/dL (13.0-16.5); Lymphocyte # 1.96 X10^3/ul (4.0); Lymphocyte % 16.7 % (19-41); Mean Corp Hgb Conc 27.4 g/dL (32-36); Mean Corpuscular Hgb 24.3 pg (27.0-32.0); Mean Corpuscular Volume 88.8 fL (80-94); Mean Platelet Vol. 9.2 fl (6.2-12.0); Monocyte# 0.54 X10^3/uL; Monocyte% 4.6 % (0-10); NRBC Flagged by Analyzer 0 % (0-5); Neutrophil # 8.98 X10^3/uL (2.7-7.7); Neutrophil % 76.6 % (47-70); Platelet Count 357 K/mm3 (150-450); RBC Distribution Width CV 16.8 % (11.6-14.6); RBC Distribution Width SD 53.7 fl (35.1-43.9); Red Blood Count 4.65 M/mm3 (4.6-6.2); White Blood Count 11.7 K/mm3 (4.4-11.0)
[2020-07-18 17:49] LABS: ALB/GLOB Ratio 0.7 RATIO (0.9-2.4); AST(SGOT) 23 U/L (15-37); Alanine Aminotransfer ALT/SGPT 48 U/L (16-61); Albumin, Serum 2.8 g/dL (3.2-5.0); Alkaline Phosphatase 94 U/L (45-117); Anion Gap 6 (5-15); BUN 11 mg/dL (7-18); BUN/Creat Ratio 10.1 RATIO (10-20); Chloride 102 mmol/L (98-107); Creatinine, Serum 1.09 mg/dL (0.70-1.30); EST Glomerular Filtration Rate 76 mL/min (>60); Est Glom Filt Rate - Afr Amer 92 mL/min (>60); Globulin 4.2 g/dL (2.2-4.2); Glucose 152 mg/dL (74-106); Potassium 4.2 mmol/L (3.5-5.1); Sodium Level 140 mmol/L (136-145)
== END ==
PROVIDERS: PCP Family Medicine; Visit Provider Internal Medicine
DX: E86.0 Dehydration (principal); E11.9 Type 2 diabetes mellitus without complications; T14.8XXA Other injury of unspecified body region, initial encounter
CPT/HCPCS: 36415; 80053; 83036; 85025

== ENCOUNTER → 2020-07-23 | Outpatient (CLI) | payer MEDICAID, SELFPAY ==
[2020-07-17 13:18] VITALS: BMI 58.0
[2020-07-23 11:13] LABS: Mucous, Urine 0 SEEN /hpf (<or=2+); Squamous Epithelial Cells - UA 0 SEEN /hpf (0-5); White Blood Cells 0 SEEN /hpf (0-5)
[2020-07-23 16:05] LABS: Color, Urine Yellow (Yellow); Glucose, Dipstick Normal (Normal); Ketone-Dipstick Negative (Negative); Leukocyte Esterase-Dipstick 25 /ul (Negative); Nitrite-Dipstick Negative (Negative); Occult Blood-Urine 150 /ul (Negative); Protein-Dipstick Negative (Negative); Urine Bilirubin Dipstick Negative (Negative); Urine Clarity Clear (Clear); Urine Urobilinogen Normal (Normal)
[2020-07-23 16:52] LABS: Bacteria 1+ /hpf (None Seen); Red Blood Cells-Urine 5-10 SEEN /hpf (0-5)
== END | disposition home or self-care (01) ==
LOC: LABSPEC 11:11
PROVIDERS: Visit Provider Internal Medicine
DX: E86.0 Dehydration (principal); E11.9 Type 2 diabetes mellitus without complications; T14.8XXA Other injury of unspecified body region, initial encounter
CPT/HCPCS: 81001

== ENCOUNTER 2020-07-24 13:00 | Outpatient (RCR) | payer MEDICAID, SELFPAY ==
[2020-06-27 09:04] VITALS: BMI 57.4
[2020-07-10 14:00] VITALS: BP 147/74; PULSE 92; RESP 24; TEMP 36.2; BMI 58.0
--- NOTE | 2020-07-10 16:11 | PCM.WC.PN ---
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 (2) Abscess of deep perineal space Status: Acute Code(s): N34.0 - Urethral abscess Comment: subsequent visit (3) Status post debridement Status: Chronic Code(s): Z98.890 - Other specified postprocedural states Comment: 06/30/[address] [facility] [address] Millan (4) Type 2 diabetes mellitus Status: Chronic Code(s): E11.9 - Type 2 diabetes mellitus without complications (5) Super obesity Status: Chronic Code(s): E66.9 - Obesity, unspecified (6) Rheumatoid arthritis Status: Chronic Code(s): M06.9 - Rheumatoid arthritis, unspecified (7) IBS (irritable bowel syndrome) Status: Chronic Code(s): K58.9 - Irritable bowel syndrome without diarrhea (8) Tobacco dependence Status: Chronic Code(s): F17.200 - Nicotine dependence, unspecified, uncomplicated (9) Thrush Status: Acute Code(s): B37.0 - Candidal stomatitis (10) Intertrigo Status: Acute Code(s): L30.4 - Erythema intertrigo (11) HTN (hypertension) Status: Chronic Code(s): I10 - Essential (primary) hypertension (12) HLD (hyperlipidemia) Status: Chronic Code(s): E78.5 - Hyperlipidemia, unspecified (13) Family history of premature CAD Status: Acute Code(s): Z82.49 - Family history of ischemic heart disease and other diseases of the circulatory system Comment: Dad at 53 and his paternal uncle of CAD in his early 50's also (14) Chronic steroid use Status: Chronic Comment: being tapered down and currently on 20 mg (15) COPD (chronic obstructive pulmonary disease) Status: Chronic Code(s): J44.9 - Chronic obstructive pulmonary disease, unspecified Comment: PFT's in 2016 showed restrictive lung disease (16) BERT (obstructive sleep apnea) Status: Chronic Code(s): G47.33 - Obstructive sleep apnea (adult) (pediatric) Comment: does not wear PAP device (17) Chronic hypoxemic respiratory failure Status: Chronic Code(s): J96.11 - Chronic respiratory failure with hypoxia Comment: on 4-5 LPM PRN? (18) Superficial thrombophlebitis of leg Status: Chronic Code(s): I80.00 - Phlebitis and thrombophlebitis of superficial vessels of unspecified lower extremity Comment: He is on full dose Xarelto ----- I think he has also had DVT in the past (19) Anemia Status: Acute Code(s): D64.9 - Anemia, unspecified (20) Chronic prescription benzodiazepine use Status: Chronic Code(s): Z79.899 - Other longterm (current) drug therapy (21) Actinomyces infection Status: Acute Code(s): A42.9 - Actinomycosis, unspecified Comment: in the non-healing wound from extensive debridement for Grecia's gangrene (22) Hx of deep venous thrombosis Status: Resolved Code(s): Z86.718 - Personal history of other venous thrombosis and embolism Comment: in 2017. Has also had superficial thrombophlebitis (23) Goiter Status: Chronic Code(s): E04.9 - Nontoxic goiter, unspecified (24) Hypothyroidism Status: Chronic Code(s): E03.9 - Hypothyroidism, unspecified (25) Colon polyps Status: Chronic Code(s): K63.5 - Polyp of colon Type of Wound Date of Service: 07/11/20 Chief Complaint: non-healing wound due to Grecia's gangrene with extensive debridement of the R buttock and perineum extending anteriorly into the scrotum History of Wound: Pt was seen in the ED at [facility] on 06/28/[address] of the abd/pelvis showed a right perianal fasciitis with extension inferiorly and posteriorly to the right infra gluteal fold of the right buttock with inflammatory reaction and subcutaneous soft tissue swelling of the scrotum. He was transferred to [facility] for suspected Grecia's gangrene and on 06/30/2020 he underwent extensive debridement of devitalized tissue by Dr. Millan. He was discharged on 07/05 home with a wound vac and has had no HHC. His dtr has been using W-D dressings twice daily. Progress of Wound: He denies fevers. He is on Doxycycline BID for Actinomyces infection for 30 days. Does not want to go to [facility] for follow up. - Physical Exam Vital Signs Temp Pulse Resp BP 97.2 F L 92 24 H 147/74 H 07/10/20 14:00 07/10/20 14:00 07/10/20 14:00 07/10/20 14:00 General: Alert, Oriented x3, Cooperative, - - he is super obese with a BMI of 66. He is lying prone in the bed. He is wearing oxygen at 4-5 liters PM and he had tachypnea just walking a short distance from the waiting room to the exam room. He also got SOB rolling onto his R side so I could accurately asses scrotal involvement. HEENT: Atraumatic, EOMI, - - Pupils are equal round and reactive to light Oral: Dry Mucosa, - - Thrush is present Lungs: Clear to auscultation, Diminished Cardiovascular: Regular rate, Regular Rhythm, - - very distant heart sounds. ECHO in 2016 showed a 60% EF and was a very difficult exam due to the pt's size. There was no significant valvular heart disease. Abdomen: Obese Extremities: No cyanosis, Edema Addt'l Wound Findings: Please see the nursing notes for the dimensions of the wound. The wound extends into the muscle but not into bone. It starts in the R buttock and extends into the perineum and then anteriorly into the base of the scrotum. There is approximately 2/3 granulation tissue and 1/3 adherent slough. There is no odor. The scrotum is very red and moist and he has moist skin folds in the groin with yeast present. No debridement was done. This would be very difficult to do in an office setting do the location and the patients immobility. All the records form [facility] were reviewed and all testing done at [facility] over the past 4 years. On 06/27 when he presented to the ED the white blood cell count was 28.5 with a left shift. Hemoglobin was low at 12.6 with an MCV of 84 and an elevated RDW. Sodium was low at 132 and potassium was low at 3.4. He had acute renal failure with a creatinine of 1.8. 1 of 2 blood cultures drawn on 06/27/2020 grew Bacteroides fragilis. Wound Measurements and Assessment WC - Nurse 1 - General Ulcer Measurement Start: 07/10/20 14:00 Freq: Status: Active Protocol: Activity Type Activity Date Activity User E-Sign Co-Sign Detail Recorded Client Recorded Date Recorded By Document 07/10/20 14:00 MW [id number] 07/10/20 14:26 MW 07/10/20 14:00 Wound Center Nurse 1 [Ulcer Assessment] #1 right buttocks/perineum -Combined with other wound No -Current Size (cm) - Length 23.0 -Current Size (cm) - Width 6.0 -Current Size (cm) - Depth 7.3 -Total Square Cm 138.00 -Photo Taken Yes -Epithelialization None Present -Tunneling No -Undermining/Tunneling No -Circular Undermining No -Exudate Amt Large -Exudate Type Serosanguineous -Wound Margin Distinct, Outline Attached -Granulation Amt Medium (34-66%) -Granulation Quality [place] -Slough/Fibrin Yes -Necrosis Amt Medium (34-66%) -Necrotic Tissue Type Adherent Slough -Structure Exposed N/A -Texture (Joanne-wound Skin Appearance) No Abnormality, Assessed -Moisture (Joanne-wound Skin Appearance Assessed, ) Maceration -Color (Joanne-wound Skin Appearance) Assessed,Rubor -Temperature (Joanne-wound Skin No Abnormality Appearance) (Pt Warm) -Tenderness on Palpation (Joanne-wound Yes Skin Appearance) -Ulcer Cleansing soap and water -Foul Odor after Cleansing No -Anesthetic Used 4% Lidocaine Solution [Edema Assessment] -Lower Limb Edema Present No Debridement Note Wound debrided: not debrided due to inability to properly position the patient on the bed Assessment/Plan Impressions 1. non-healing R buttock, R perineal and base of scrotum wound due to deep extensive debridement required for Grecia's gangrene 2. dysuria 3. Dehydration 4. Thrush 5. Intertrigo 6. anemia 7. DM II - not checking his sugars but has been having polyuria and his MM are very dry. He has been on high dose prednisone and there are no hypoglycemic agents listed on the med list. I suspect the blood sugars are uncontrolled. 8. super obesity 9. BERT - Not compliant with Bi-level PAP device 10. restrictive lung disease on PFT's in 2016 11. Chronic hypoxic respiratory failure on O2 at 4 to 5 L 12. Rheumatoid arthritis-currently on high-dose steroids, Plaquenil and methotrexate 13. Positive family history of premature from coronary artery disease in his father and his paternal uncle 14. IBS 15. Hypertension 16. Dyslipidemia 17. Tobacco dependence 18. Anxiety/depression This pt has many medical co-morbidities putting him at high risk for any surgery. He needs a diverting colostomy if this wound is to heal. He will need pulmonary and Cardiac evaluations prior to any procedures. I do not feel he can be adequately cared for at home. He should be on a low air loss mattress and restrict Time sitting on his backside to 30 minutes 3 times a day for meals. He should be turned from side to side every 2 hours to prevent pressure wounds. This was all discussed with the patient. He is unrealistic with his expectations of healing and the difficulty adequately caring for him due to his size and immobility. I recommend dietary follow up and controlled weight loss under the direction of the radiology equipment servicer. Active Problems History of Grecia's gangrene (Acute) surgery to extensively debride devitalized tissue in the R buttock and perineum. Abscess of deep perineal space (Acute) subsequent visit Status post debridement (Chronic) 06/30/[address] [facility] [address] Millan Type 2 diabetes mellitus (Chronic) Super obesity (Chronic) Rheumatoid arthritis (Chronic) IBS (irritable bowel syndrome) (Chronic) Tobacco dependence (Chronic) Thrush (Acute) Intertrigo (Acute) HTN (hypertension) (Chronic) HLD (hyperlipidemia) (Chronic) Family history of premature CAD (Acute) Dad at 53 and his paternal uncle of CAD in his early 50's also Chronic steroid use (Chronic) being tapered down and currently on 20 mg COPD (chronic obstructive pulmonary disease) (Chronic) PFT's in 2016 showed restrictive lung disease BERT (obstructive sleep apnea) (Chronic) does not wear PAP device Chronic hypoxemic respiratory failure (Chronic) on 4-5 LPM PRN? Superficial thrombophlebitis of leg (Chronic) He is on full dose Xarelto ----- I think he has also had DVT in the past Anemia (Acute) Chronic prescription benzodiazepine use (Chronic) Actinomyces infection (Acute) in the non-healing wound from extensive debridement for Grecia's gangrene Goiter (Chronic) Hypothyroidism (Chronic) Colon polyps (Chronic) Assessment: Impressions. 1. extensive non-helaing wound of the R buttock and R perineum and scrotum following extensive debridement for grecia's gangrene on 06/30/20 at [facility]. 2. 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 3. dehydration. 4. Thrush. 5. Intertrigo. 6. DM II - suspect very uncontrolled. On high dose steroids and not on any medication for diabetes at this time. 7. untreated severe BERT. 8. severe restrictive lung disease. 9. Chronic hypoxic respiratory failure. 10. Recent acute renal failure more likely than not secondary to sepsis. 11. Hypertension. 12. Hyperlipidemia. 13. Positive family history of coronary artery disease with his father passing at 53 with myocardial infarction. 14. Super obesity. 15. Rheumatoid arthritis. 16. Hypothyroidism with goiter. 17. Chronic benzodiazepine use. 18. Gabapentin-cannot tell me why he takes this. He does have a history of meralgia paresthetica. 19. Tobacco dependence tobacco cessation counseling was given. I told him I would write a prescription for a NicoDerm patch if he desired Plan: 1. refer to [facility]. 2. CMP, CBC with diff, UA (he c/o dysuria), HGBA1c. 3. He will check his blood sugars BID, FBS and prior to supper. 4. He was given prescriptions for Nystatin powder and Mycelex troches. 5. He was given a prescription for Oxycodone 10 mg to take 30 minutes prior to dressing changes. 6. He was instructed to eat healthy meals with good lean protein. I recommended he consider follow up with the dieticians for weight management and good protein sources. consider Zhao in the future. Will talk with general surgery about the feasibility of doing a diverting colostomy at [facility]. Would need cardiology and pulmonary clearance. 7. 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 8. Obtain Dr. Carranza's problem list and med list and recent labs. 9. would like to see Benzo's discontinued due to severe sleep apnea......no REM sleep and O2 sat's still less than 90% on BIPAP at 17 on sleep study in 2016 when the BMI was only 50. 10. I recommend to him that he go to SNF for a few months for wound care....he is very resistant and we will discuss this at his next visit in 1 week. 11. Culture was taken of the wound....anaerobe and anaerobic. 12. return to clinic in 1 week. 13. Consider adding Wellbutrin or Effexor to treat depression and aid in weight loss and smoking cessation. 14. Obtain records from his buffing wheel presser and Dr. Norrsi. Will discuss care with Dr. Norris personally. Office Visits / Consults: [id number] L5 New - a total of 90 minutes was spent in caring for this pt. All records were reviewed and I spoke with Dr. Norris and Dr. Boothe to coordinate care.
--- NOTE | 2020-07-12 12:55 | HP.PCM_ITS ---
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 (2) Abscess of deep perineal space Status: Acute Code(s): N34.0 - Urethral abscess Comment: subsequent visit (3) Status post debridement Status: Chronic Code(s): Z98.890 - Other specified postprocedural states Comment: 06/30/[address] [facility] [address] Millan (4) Type 2 diabetes mellitus Status: Chronic Code(s): E11.9 - Type 2 diabetes mellitus without complications (5) Super obesity Status: Chronic Code(s): E66.9 - Obesity, unspecified (6) Rheumatoid arthritis Status: Chronic Code(s): M06.9 - Rheumatoid arthritis, unspecified (7) IBS (irritable bowel syndrome) Status: Chronic Code(s): K58.9 - Irritable bowel syndrome without diarrhea (8) Tobacco dependence Status: Chronic Code(s): F17.200 - Nicotine dependence, unspecified, uncomplicated (9) Thrush Status: Acute Code(s): B37.0 - Candidal stomatitis (10) Intertrigo Status: Acute Code(s): L30.4 - Erythema intertrigo (11) HTN (hypertension) Status: Chronic Code(s): I10 - Essential (primary) hypertension (12) HLD (hyperlipidemia) Status: Chronic Code(s): E78.5 - Hyperlipidemia, unspecified (13) Family history of premature CAD Status: Acute Code(s): Z82.49 - Family history of ischemic heart disease and other diseases of the circulatory system Comment: Dad at 53 and his paternal uncle of CAD in his early 50's also (14) Chronic steroid use Status: Chronic Comment: being tapered down and currently on 20 mg (15) COPD (chronic obstructive pulmonary disease) Status: Chronic Code(s): J44.9 - Chronic obstructive pulmonary disease, unspecified Comment: PFT's in 2016 showed restrictive lung disease (16) BERT (obstructive sleep apnea) Status: Chronic Code(s): G47.33 - Obstructive sleep apnea (adult) (pediatric) Comment: does not wear PAP device (17) Chronic hypoxemic respiratory failure Status: Chronic Code(s): J96.11 - Chronic respiratory failure with hypoxia Comment: on 4-5 LPM PRN? (18) Superficial thrombophlebitis of leg Status: Chronic Code(s): I80.00 - Phlebitis and thrombophlebitis of superficial vessels of unspecified lower extremity Comment: He is on full dose Xarelto ----- I think he has also had DVT in the past (19) Anemia Status: Acute Code(s): D64.9 - Anemia, unspecified (20) Chronic prescription benzodiazepine use Status: Chronic Code(s): Z79.899 - Other sail repairer (current) drug therapy (21) Actinomyces infection Status: Acute Code(s): A42.9 - Actinomycosis, unspecified Comment: in the non-healing wound from extensive debridement for Grecia's gangrene (22) Hx of deep venous thrombosis Status: Resolved Code(s): Z86.718 - Personal history of other venous thrombosis and embolism Comment: in 2017. Has also had superficial thrombophlebitis (23) Goiter Status: Chronic Code(s): E04.9 - Nontoxic goiter, unspecified (24) Hypothyroidism Status: Chronic Code(s): E03.9 - Hypothyroidism, unspecified (25) Colon polyps Status: Chronic Code(s): K63.5 - Polyp of colon History of Present Illness Date of Service: 07/12/20 Chief Complaint: non-healing wound due to Grecia's gangrene with extensive debridement of the R buttock and perineum extending anteriorly into the scrotum History of Wound: Pt was seen in the ED at [facility] on 06/28/[address] of the abd/pelvis showed a right perianal fasciitis with extension inferiorly and posteriorly to the right infra gluteal fold of the right buttock with inflammatory reaction and subcutaneous soft tissue swelling of the scrotum. He was transferred to [facility] for suspected Grecia's gangrene and on 06/30/2020 he underwent extensive debridement of devitalized tissue by Dr. Millan. He was discharged on 07/05 home with a wound vac and has had no HHC. His dtr has been using W-D dressings twice daily. Past Medical History Past Medical History: Chronic Problems Status post debridement (Chronic) 06/30/[address] [facility] [address] Millan Type 2 diabetes mellitus (Chronic) Super obesity (Chronic) Rheumatoid arthritis (Chronic) IBS (irritable bowel syndrome) (Chronic) Tobacco dependence (Chronic) HTN (hypertension) (Chronic) HLD (hyperlipidemia) (Chronic) Chronic steroid use (Chronic) being tapered down and currently on 20 mg COPD (chronic obstructive pulmonary disease) (Chronic) PFT's in 2016 showed restrictive lung disease BERT (obstructive sleep apnea) (Chronic) does not wear PAP device Chronic hypoxemic respiratory failure (Chronic) on 4-5 LPM PRN? Superficial thrombophlebitis of leg (Chronic) He is on full dose Xarelto ----- I think he has also had DVT in the past Chronic prescription benzodiazepine use (Chronic) Goiter (Chronic) Hypothyroidism (Chronic) Colon polyps (Chronic) Surgical History: no surgical history, - Allergies/Adverse Reactions: Allergies Penicillins Allergy (Verified 07/07/20 11:36) Hives Sulfa (Sulfonamide Antibiotics) Allergy (Verified 07/07/20 11:36) Hives etanercept [From Enbrel] Adverse Reaction (Verified 07/07/20 11:36) Swelling rivaroxaban [From Xarelto] Adverse Reaction (Verified 07/07/20 11:36) Nausea warfarin sodium [From Coumadin] Adverse Reaction (Verified 07/07/20 11:36) Nausea Home Medications: Ambulatory Orders Medication Instructions Recorded Levothyroxine [Synthroid] 150 mcg PO DAILY 06/22/13 Diazepam [Valium] 10 mg PO Q6H PRN 03/03/16 Doxycycline [Vibramycin] 100 mg PO BID #20 capsule 04/14/17 predniSONE tablet 20 mg PO DAILY@0800 04/14/17 Albuterol Inhaler [Ventolin Hfa 2 puff INHALATION Q6H PRN PRN 07/07/20 (SP)] Ascorbic Acid [Vitamin C] 500 mg PO BID 07/07/20 Bumetanide 2 mg PO DAILY 07/07/20 Cyclobenzaprine HCl 10 mg PO TID PRN PRN 07/07/20 Ergocalciferol [Vitamin D] 50,000 unit PO Q7D 07/07/20 Ferrous Sulfate 325 mg PO DAILY 07/07/20 Gabapentin [Neurontin] 100 mg PO QHS 07/07/20 Losartan Potassium 25 mg PO DAILY 07/07/20 Omeprazole 20 mg PO BID 07/07/20 Oxycodone [Oxyir] 5 mg PO Q6H PRN PRN 07/07/20 Rivaroxaban [Xarelto] 20 mg PO DAILY 07/07/20 Zinc Sulfate 220 mg PO DAILY 07/07/20 Zolpidem Tartrate 5 mg PO QHS PRN 07/07/20 Smoking Status: Current every day smoker - Physical Exam Vital Signs Temp Pulse Resp BP 97.2 F L 92 24 H 147/74 H 07/10/20 14:00 07/10/20 14:00 07/10/20 14:00 07/10/20 14:00 Wound Measurements and Assessment WC - Nurse 1 - General Ulcer Measurement Start: 07/10/20 14:00 Freq: Status: Active Protocol: Activity Type Activity Date Activity User E-Sign Co-Sign Detail Recorded Client Recorded Date Recorded By Document 07/10/20 14:00 MW [id number] 07/10/20 14:26 MW 07/10/20 14:00 Wound Center Nurse 1 [Ulcer Assessment] #1 right buttocks/perineum -Combined with other wound No -Current Size (cm) - Length 23.0 -Current Size (cm) - Width 6.0 -Current Size (cm) - Depth 7.3 -Total Square Cm 138.00 -Photo Taken Yes -Epithelialization None Present -Tunneling No -Undermining/Tunneling No -Circular Undermining No -Exudate Amt Large -Exudate Type Serosanguineous -Wound Margin Distinct, Outline Attached -Granulation Amt Medium (34-66%) -Granulation Quality [place] -Slough/Fibrin Yes -Necrosis Amt Medium (34-66%) -Necrotic Tissue Type Adherent Slough -Structure Exposed N/A -Texture (Joanne-wound Skin Appearance) No Abnormality, Assessed -Moisture (Joanne-wound Skin Appearance Assessed, ) Maceration -Color (Joanne-wound Skin Appearance) Assessed,Rubor -Temperature (Joanne-wound Skin No Abnormality Appearance) (Pt Warm) -Tenderness on Palpation (Joanne-wound Yes Skin Appearance) -Ulcer Cleansing soap and water -Foul Odor after Cleansing No -Anesthetic Used 4% Lidocaine Solution [Edema Assessment] -Lower Limb Edema Present No WC - Nurse 2 - General Ulcer CM Notes Start: 07/10/20 14:00 Freq: Status: Active Protocol: Activity Type Activity Date Activity User E-Sign Co-Sign Detail Recorded Client Recorded Date Recorded By Document 07/10/20 16:58 PL [id number] 07/10/20 16:59 PL 07/10/20 16:58 Wound Center Nurse 2 [Procedure/Treatment] #1 right buttocks/perineum -Procedure Performed No [See Physician Procedure note for Specifics] Pain Scale: 0-10 Numeric [Pain] -Is Patient Pain Free? Yes - Nurse 3 - General Ulcer D/C NN Start: 07/10/20 14:00 Freq: Status: Active Protocol: Activity Type Activity Date Activity User E-Sign Co-Sign Detail Recorded Client Recorded Date Recorded By Document 07/10/20 16:15 MW [id number] 07/10/20 16:16 MW 07/10/20 16:15 Wound Care Nurse 3 [Wound Dressing] #1 right buttocks/perineum -Ulcer Cleansing Rinsed/ Irrigated with Saline -Foul Odor after Cleansing No -Negative Pressure Wound Therapy N/A -Primary Dressing Covered/Secured Dry Gauze & with Roll Gauze, Secured with Tape -Other Covering GAUZE WET-TO DRY [Post Procedure Tolerated] -Treatment Response Procedure Tolerated Well Pain Scale: 0-10 Numeric [Pain] -Is Patient Pain Free? Yes Teaching: Wound Center [Wound Center Education] (Items with an * have Printed Materials Available- Please identify what is given to patient under the Teaching materials given to patient and caregiver Section. Dressing Your Wound -Person Taught Patient,Family -Teaching Method Discussion, Demonstration -Response to teaching Verbalize understanding - Visit Discharge [Visit Discharge Information] -Discharge Condition Stable -Ambulatory Status Ambulatory,Cane -Transportation Private Auto -Accompanied by DAUGHTER -Medication Reconcilliation completed No & provided to patient/care provider -Clinical Summary of Care Provided Yes Debridement Note Post-Debridement Measurements/Treatment WC - Nurse 2 - General Ulcer CM Notes Start: 07/10/20 14:00 Freq: Status: Active Protocol: Activity Type Activity Date Activity User E-Sign Co-Sign Detail Recorded Client Recorded Date Recorded By Document 07/10/20 16:58 PL [id number] 07/10/20 16:59 PL 07/10/20 16:58 Wound Center Nurse 2 #1 right buttocks/perineum -Procedure Performed No Pain Scale: 0-10 Numeric Is Patient Pain Free? Yes - Nurse 3 - General Ulcer D/C NN Start: 07/10/20 14:00 Freq: Status: Active Protocol: Activity Type Activity Date Activity User E-Sign Co-Sign Detail Recorded Client Recorded Date Recorded By Document 07/10/20 16:15 MW [id number] 07/10/20 16:16 MW 07/10/20 16:15 Wound Care Nurse 3 #1 right buttocks/perineum -Ulcer Cleansing Rinsed/ Irrigated with Saline -Foul Odor after Cleansing No -Negative Pressure Wound Therapy N/A -Primary Dressing Covered/Secured with Dry Gauze & Roll Gauze, Secured with Tape -Other Covering GAUZE WET-TO DRY Treatment Response Procedure Tolerated Well Pain Scale: 0-10 Numeric Is Patient Pain Free? Yes Teaching: Wound Center Dressing Your Wound -Person Taught Patient,Family -Teaching Method Discussion, Demonstration -Response to teaching Verbalize understanding WC - Visit Discharge Discharge Condition Stable Ambulatory Status Ambulatory,Cane Transportation Private Auto Accompanied by DAUGHTER Medication Reconcilliation completed & No provided to patient/care provider Clinical Summary of Care Provided Yes Assessment/Plan Active Problems History of Grecia's gangrene (Acute) surgery to extensively debride devitalized tissue in the R buttock and perineum. Abscess of deep perineal space (Acute) subsequent visit Status post debridement (Chronic) 06/30/[address] [facility] [address] Millan Type 2 diabetes mellitus (Chronic) Super obesity (Chronic) Rheumatoid arthritis (Chronic) IBS (irritable bowel syndrome) (Chronic) Tobacco dependence (Chronic) Thrush (Acute) Intertrigo (Acute) HTN (hypertension) (Chronic) HLD (hyperlipidemia) (Chronic) Family history of premature CAD (Acute) Dad at 53 and his paternal uncle of CAD in his early 50's also Chronic steroid use (Chronic) being tapered down and currently on 20 mg COPD (chronic obstructive pulmonary disease) (Chronic) PFT's in 2016 showed restrictive lung disease BERT (obstructive sleep apnea) (Chronic) does not wear PAP device Chronic hypoxemic respiratory failure (Chronic) on 4-5 LPM PRN? Superficial thrombophlebitis of leg (Chronic) He is on full dose Xarelto ----- I think he has also had DVT in the past Anemia (Acute) Chronic prescription benzodiazepine use (Chronic) Actinomyces infection (Acute) in the non-healing wound from extensive debridement for Grecia's gangrene Goiter (Chronic) Hypothyroidism (Chronic) Colon polyps (Chronic) Assessment: Impressions. 1. extensive non-helaing wound of the R buttock and R perineum and scrotum following extensive debridement for grecia's gangrene on 06/30/20 at [facility]. 2. 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 3. dehydration. 4. Thrush. 5. Intertrigo. 6. DM II - suspect very uncontrolled. On high dose steroids and not on any medication for diabetes at this time. 7. untreated severe BERT. 8. severe restrictive lung disease. 9. Chronic hypoxic respiratory failure. 10. Recent acute renal failure more likely than not secondary to sepsis. 11. Hypertension. 12. Hyperlipidemia. 13. Positive family history of coronary artery disease with his father passing at 53 with myocardial infarction. 14. Super obesity. 15. Rheumatoid arthritis. 16. Hypothyroidism with goiter. 17. Chronic benzodiazepine use. 18. Gabapentin-cannot tell me why he takes this. He does have a history of meralgia paresthetica. 19. Tobacco dependence tobacco cessation counseling was given. I told him I would write a prescription for a NicoDerm patch if he desired Plan: 1. refer to [facility] HHC. 2. CMP, CBC with diff, UA (he c/o dysuria), HGBA1c. 3. He will check his blood sugars BID, FBS and prior to supper. 4. He was given prescriptions for Nystatin powder and Mycelex troches. 5. He was given a prescription for Oxycodone 10 mg to take 30 minutes prior to dressing changes. 6. He was instructed to eat healthy meals with good lean protein. I recommended he consider follow up with the dieticians for weight management and good protein sources. consider Zhao in the future. Will talk with general surgery about the feasibility of doing a diverting colostomy at [facility]. Would need cardiology and pulmonary clearance. 7. Find out who his patient advocate is and get him off steroids as quick as safely possible. 8. Obtain Dr. Carranza's problem list and med list and recent labs. 9. would like to see Benzo's discontinued due to severe sleep apnea......no REM sleep and O2 sat's still less than 90% on BIPAP at 19/06 on sleep study in 2016 when the BMI was only 50. 10. I recommend to him that he go to SNF for a few months for wound care....he is very resistant and we will discuss this at his next visit in 1 week. 11. Culture was taken of the wound....anaerobe and anaerobic. 12. return to clinic in 1 week. 13. Consider adding Wellbutrin or Effexor to treat depression and aid in weight loss and smoking cessation. 14. Obtain records from his patient advocate and Dr. Norris. Will discuss care with Dr. Norris personally.
[2020-07-17 13:18] VITALS: BP 199/95; PULSE 89; RESP 20; TEMP 36.8; BMI 58.0
--- NOTE | 2020-07-17 17:02 | PCM.WC.PN ---
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 (2) Abscess of deep perineal space Status: Acute Code(s): N34.0 - Urethral abscess Comment: subsequent visit (3) Status post debridement Status: Chronic Code(s): Z98.890 - Other specified postprocedural states Comment: 06/30/[address] [facility] [address] Millan (4) Type 2 diabetes mellitus Status: Chronic Code(s): E11.9 - Type 2 diabetes mellitus without complications (5) Super obesity Status: Chronic Code(s): E66.9 - Obesity, unspecified (6) Rheumatoid arthritis Status: Chronic Code(s): M06.9 - Rheumatoid arthritis, unspecified (7) IBS (irritable bowel syndrome) Status: Chronic Code(s): K58.9 - Irritable bowel syndrome without diarrhea (8) Tobacco dependence Status: Chronic Code(s): F17.200 - Nicotine dependence, unspecified, uncomplicated (9) Thrush Status: Acute Code(s): B37.0 - Candidal stomatitis (10) Intertrigo Status: Acute Code(s): L30.4 - Erythema intertrigo (11) HTN (hypertension) Status: Chronic Code(s): I10 - Essential (primary) hypertension (12) HLD (hyperlipidemia) Status: Chronic Code(s): E78.5 - Hyperlipidemia, unspecified (13) Family history of premature CAD Status: Acute Code(s): Z82.49 - Family history of ischemic heart disease and other diseases of the circulatory system Comment: Dad at 53 and his paternal uncle of CAD in his early 50's also (14) Chronic steroid use Status: Chronic Comment: being tapered down and currently on 20 mg (15) COPD (chronic obstructive pulmonary disease) Status: Chronic Code(s): J44.9 - Chronic obstructive pulmonary disease, unspecified Comment: PFT's in 2016 showed restrictive lung disease (16) BERT (obstructive sleep apnea) Status: Chronic Code(s): G47.33 - Obstructive sleep apnea (adult) (pediatric) Comment: does not wear PAP device (17) Chronic hypoxemic respiratory failure Status: Chronic Code(s): J96.11 - Chronic respiratory failure with hypoxia Comment: on 4-5 LPM PRN? (18) Superficial thrombophlebitis of leg Status: Chronic Code(s): I80.00 - Phlebitis and thrombophlebitis of superficial vessels of unspecified lower extremity Comment: He is on full dose Xarelto ----- I think he has also had DVT in the past (19) Anemia Status: Acute Code(s): D64.9 - Anemia, unspecified (20) Chronic prescription benzodiazepine use Status: Chronic Code(s): Z79.899 - Other long filler cigar roller machine (current) drug therapy (21) Actinomyces infection Status: Acute Code(s): A42.9 - Actinomycosis, unspecified Comment: in the non-healing wound from extensive debridement for Grecia's gangrene (22) Hx of deep venous thrombosis Status: Resolved Code(s): Z86.718 - Personal history of other venous thrombosis and embolism Comment: in 2017. Has also had superficial thrombophlebitis (23) Goiter Status: Chronic Code(s): E04.9 - Nontoxic goiter, unspecified (24) Hypothyroidism Status: Chronic Code(s): E03.9 - Hypothyroidism, unspecified (25) Colon polyps Status: Chronic Code(s): K63.5 - Polyp of colon (26) Non-healing wound Status: Acute Comment: of the R buttock, perineum extending into the base of the scrotal sac. The wound is extensive and the anus is in the center. Type of Wound Date of Service: 07/18/20 Chief Complaint: non-healing wound due to Grecia's gangrene with extensive debridement of the R buttock and perineum extending anteriorly into the scrotum History of Wound: Pt was seen in the ED at [facility] on 06/28/[address] of the abd/pelvis showed a right perianal fasciitis with extension inferiorly and posteriorly to the right infra gluteal fold of the right buttock with inflammatory reaction and subcutaneous soft tissue swelling of the scrotum. He was transferred to [facility] for suspected Grecia's gangrene and on 06/30/2020 he underwent extensive debridement of devitalized tissue by Dr. Millan. He was discharged on 07/05 home with a wound vac and has had no HHC. His dtr has been using W-D dressings twice daily. Progress of Wound: He denies fevers/chills. No odor from the wound with dressing changes. He tells me that His dtr is packing more gauze into the wound and his is running out of supplies faster. Denies dysuria, abd pain. He did not have his lab drawn. He tells me that he has an appt with Dr. Norris tomorrow and he will have it drawn at that time. He is depressed and not motivated to do what he needs to do to care for himself. He tells me that he has a BIPAP unit at home and that it needsd to be recalibrated but the medical supply [employer] has not sent anyone. He has not called them recently. He is chronically tired, more likely than not due to untreated sleep apnea. He is not taking an antidepressant. He lists many allergies to medications and 2 cause hives but the others are swelling and nausea........when I reviewed Dr. Carranza's notes from the office he listed MANY more allergies and the reactions to the meds are not consistent with allergy.......they are NS somatic complaints primarily which I suspect are due to super obesity, suspected pulmonary HTN, untreated sleep apnea, depression. He is taking Valium for anxiety but no antidepressant.....he can not even remember what has been tried and what the adverse reactions were. The Valium likely exacerbates the untreated sleep apnea and puts him at risk for sudden while sleeping. - Physical Exam Vital Signs Temp Pulse Resp BP 98.2 F 89 20 H 199/95 H 07/17/20 13:18 07/17/20 13:18 07/17/20 13:18 07/17/20 13:18 General: Alert, Oriented x3, Cooperative, No apparent distress HEENT: Atraumatic Oral: Moist Mucosa Lungs: No wheeze, Diminished Cardiovascular: Regular rate, Regular Rhythm, Normal S1, Normal S2, - - very distant heart sounds due to body habitus Abdomen: Non Tender, Obese Extremities: Edema, - - He would like to go back on diuretics.....they were stopped at [facility]....probably due to sepsis with ARF. Skin: Ulcer/ Wound - perineum extending into the scrotum Wound Measurements and Assessment - Nurse 1 - General Ulcer Measurement Start: 07/10/20 14:00 Freq: Status: Active Protocol: Activity Type Activity Date Activity User E-Sign Co-Sign Detail Recorded Client Recorded Date Recorded By Document 07/17/20 13:18 [facility] [id number] 07/17/20 13:30 [facility] 07/17/20 13:18 Wound Center Nurse 1 [Ulcer Assessment] #1 right buttocks/perineum -Combined with other wound No -Current Size (cm) - Length 22 -Current Size (cm) - Width 7.6 -Current Size (cm) - Depth 8 -Total Square Cm 167.2 -Photo Taken No -Epithelialization None Present -Tunneling No -Undermining/Tunneling NO -Circular Undermining No -Wound Margin Distinct, Outline Attached -Granulation Amt Medium (34-66%) -Granulation Quality Red -Slough/Fibrin Yes -Necrosis Amt Medium (34-66%) -Necrotic Tissue Type Adherent Slough -Texture (Joanne-wound Skin Appearance) Assessed, Scarring -Moisture (Joanne-wound Skin Appearance Assessed ) -Color (Joanne-wound Skin Appearance) Assessed -Temperature (Joanne-wound Skin No Abnormality Appearance) (Pt Warm) -Tenderness on Palpation (Joanne-wound Yes Skin Appearance) -Ulcer Cleansing soapy water -Foul Odor after Cleansing No -Anesthetic Used 4% Lidocaine Solution - Nurse 3 - General Ulcer D/C NN Start: 07/10/20 14:00 Freq: Status: Active Protocol: Activity Type Activity Date Activity User E-Sign Co-Sign Detail Recorded Client Recorded Date Recorded By Document 07/17/20 14:25 [id number] 07/17/20 14:27 07/17/20 14:25 Wound Care Nurse 3 [Wound Dressing] -Ulcer Cleansing Wound Cleanser -Foul Odor after Cleansing No -Other Dressing moist saline gauze -Primary Dressing Covered/Secured Dry Gauze with [Post Procedure Tolerated] -Treatment Response Procedure Tolerated Well Pain Scale: 0-10 Numeric [Pain] -Is Patient Pain Free? Yes - Visit Discharge [Visit Discharge Information] -Discharge Condition Stable -Ambulatory Status Ambulatory -Transportation Private Auto The wound has increased in size from 138 cm2 on 07/10 to 167 cm2 today. There is no odor. No jonane-wound erythema or increased warmth to touch. No purulent DC observed. there is no undermining but, he does have tunneling into the Left buttock in a few areas. There is 50-60% granulation and 40-50% slough. The wounds are very tender to even light touch....even after 4% Lidocaine solution soaked gauze application. It is josefina tender at the base of the scrotal sack. I reviewed the results of the wound culture and it is growing MRSA, Enterococcus and E. coli. Sensitivities were reviewed. Neurological: Cranial nerves II-XII grossly intact, Neuro grossly intact Psych/Mental Status: Appropriate, Delusions, Depressed Debridement Note Post-Debridement Measurements/Treatment WC - Nurse 2 - General Ulcer CM Notes Start: 07/10/20 14:00 Freq: Status: Active Protocol: Activity Type Activity Date Activity User E-Sign Co-Sign Detail Recorded Client Recorded Date Recorded By Document 07/10/20 16:58 PL [id number] 07/10/20 16:59 PL 07/10/20 16:58 Wound Center Nurse 2 #1 right buttocks/perineum -Procedure Performed No Pain Scale: 0-10 Numeric Is Patient Pain Free? Yes - Nurse 3 - General Ulcer D/C NN Start: 07/10/20 14:00 Freq: Status: Active Protocol: Activity Type Activity Date Activity User E-Sign Co-Sign Detail Recorded Client Recorded Date Recorded By Document 07/10/20 16:15 MW [id number] 07/10/20 16:16 MW Document 07/17/20 14:25 DL [id number] 07/17/20 14:27 DL 07/10/20 07/17/20 16:15 14:25 Wound Care Nurse 3 #1 right buttocks/perineum -Ulcer Cleansing Rinsed/ Wound Cleanser Irrigated with Saline -Foul Odor after Cleansing No No -Negative Pressure Wound Therapy N/A -Other Dressing moist saline gauze -Primary Dressing Covered/Secured with Dry Gauze & Dry Gauze Roll Gauze, Secured with Tape -Other Covering GAUZE WET-TO DRY Treatment Response Procedure Procedure Tolerated Well Tolerated Well Pain Scale: 0-10 Numeric Is Patient Pain Free? Yes Yes Teaching: Wound Center Dressing Your Wound -Person Taught Patient,Family -Teaching Method Discussion, Demonstration -Response to teaching Verbalize understanding WC - Visit Discharge Discharge Condition Stable Stable Ambulatory Status Ambulatory,Cane Ambulatory Transportation Private Auto Private Auto Accompanied by DAUGHTER Medication Reconcilliation completed & No provided to patient/care provider Clinical Summary of Care Provided Yes Depth: to muscle No debridement was completed today - He is very painful to even light touch. The wound is extensive with 40-50% slough.......will re-evaluate after a 7 day course of antibiotics.......it may be more prudent to debride in surgery. Assessment/Plan I reviewed the results of the wound culture. The wound is growing 3+ MRSA, 2+ Enterococcus and 2+ E. coli. E. coli is pansensitive. The MRSA is sensitive to vancomycin Bactrim linezolid. Enterococcus is resistant to aminoglycosides but sensitive to linezolid and ampicillin. He did not have the lab drawn. Active Problems History of Grecia's gangrene (Acute) surgery to extensively debride devitalized tissue in the R buttock and perineum. Abscess of deep perineal space (Acute) subsequent visit Status post debridement (Chronic) 06/30/[address] [facility] [address] Millan Type 2 diabetes mellitus (Chronic) Super obesity (Chronic) Rheumatoid arthritis (Chronic) IBS (irritable bowel syndrome) (Chronic) Tobacco dependence (Chronic) Thrush (Acute) Intertrigo (Acute) HTN (hypertension) (Chronic) HLD (hyperlipidemia) (Chronic) Family history of premature CAD (Acute) Dad at 53 and his paternal uncle of CAD in his early 50's also Chronic steroid use (Chronic) being tapered down and currently on 20 mg COPD (chronic obstructive pulmonary disease) (Chronic) PFT's in 2016 showed restrictive lung disease BERT (obstructive sleep apnea) (Chronic) does not wear PAP device Chronic hypoxemic respiratory failure (Chronic) on 4-5 LPM PRN? Superficial thrombophlebitis of leg (Chronic) He is on full dose Xarelto ----- I think he has also had DVT in the past Anemia (Acute) Chronic prescription benzodiazepine use (Chronic) Actinomyces infection (Acute) in the non-healing wound from extensive debridement for Grecia's gangrene Goiter (Chronic) Hypothyroidism (Chronic) Colon polyps (Chronic) Non-healing wound (Acute) of the R buttock, perineum extending into the base of the scrotal sac. The wound is extensive and the anus is in the center. Assessment: Impressions. 1. extensive non-helaing wound of the R buttock and R perineum and scrotum following extensive debridement for grecia's gangrene on 06/30/20 at [facility]. 2. 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 3. dehydration. 4. Thrush. 5. Intertrigo. 6. DM II - suspect very uncontrolled. On high dose steroids and not on any medication for diabetes at this time. 7. untreated severe BERT. 8. severe restrictive lung disease. 9. Chronic hypoxic respiratory failure. 10. Recent acute renal failure more likely than not secondary to sepsis. 11. Hypertension. 12. Hyperlipidemia. 13. Positive family history of coronary artery disease with his father passing at 53 with myocardial infarction. 14. Super obesity. 15. Rheumatoid arthritis. 16. Hypothyroidism with goiter. 17. Chronic benzodiazepine use. 18. Gabapentin-cannot tell me why he takes this. He does have a history of meralgia paresthetica. 19. Tobacco dependence tobacco cessation counseling was given. I told him I would write a prescription for a NicoDerm patch if he desired. 20 wound colonization with MRSA, E. coli and Enterococcus Plan: I spoke with Dr. Boothe who reviewed the most recent CT of the abd and pelvis and spoke with anesthesia. He feels there is enough redundancy in the colon to do a diverting colostomy but, due to mutiple medical co-morbities and size (we have no bariatric beds large enough to accomodate him and we do not have the equipment to be able to move him around post-op) he would be more appropriate for surgery at a tertiary care center, like [facility] or [facility]. He is at high risk (31%) for serious complications, high risk for readmission (26%), increased risk for (6.6%) and very high risk for DC to SNF (47.3%). He is also at increassed risk for sepsis, return to the OR, renal failure and surgical site infection. Results are according to the NSQIP surgical risk calculator. We talked again about his options. I think if the wound is to heal he will need a diverting colostomy to keep the stool out of the wound. Without a diverting colostomy in this pt with uncontrolled DM, super obestiry, severe restrictive lung disease, untreated BERT, chronic high dose steroid use and hx of grecia's gangrene with extensive perineal wound extending into muscle he is at high risk for recurrent infections/sepsis/ due to infection. We discussed tapering steroids down, consultation with [place] [facility], tight BS control, getting the BIPAP unit re-calibrated, discontinueing smoking, weight loss, getting off Valium, admission to an SNF to optimize wound in preparation for a graft, with muscle flap, going forward. 45 minutes was spent in the care of this patient. Will review the lab when available. I spoke with Dr. Norris who agrees getting this patient through the process is going to be a daunting task and will require a lot of diligence and active participation on his part. He is clear he does not want to . WQe need to get him using the BIPAP if we are going to effectively treat depression and improve his motivation to help himself. Office Visits / Consults: [id number] OV L3 Est
[2020-07-24 13:03] VITALS: BP 164/109; PULSE 110; RESP 20; TEMP 36.2; BMI 58.0
--- NOTE | 2020-07-24 14:09 | PCM.WC.PN ---
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 (2) Abscess of deep perineal space Status: Inactive Code(s): N34.0 - Urethral abscess Comment: subsequent visit (3) Status post debridement Status: Inactive Code(s): Z98.890 - Other specified postprocedural states Comment: 06/30/[address] [facility] [address] Millan (4) Type 2 diabetes mellitus Status: Chronic Code(s): E11.9 - Type 2 diabetes mellitus without complications (5) Super obesity Status: Chronic Code(s): E66.9 - Obesity, unspecified (6) Rheumatoid arthritis Status: Chronic Qualifiers: Rheumatoid arthritis location: multiple sites Rheumatoid factor presence: with rheumatoid factor Qualified Code(s): M05.79 - Rheumatoid arthritis with rheumatoid factor of multiple sites without organ or systems involvement Code(s): M06.9 - Rheumatoid arthritis, unspecified (7) IBS (irritable bowel syndrome) Status: Chronic Qualifiers: Irritable bowel syndrome type: with diarrhea Qualified Code(s): K58.0 - Irritable bowel syndrome with diarrhea Code(s): K58.9 - Irritable bowel syndrome without diarrhea (8) Tobacco dependence Status: Chronic Code(s): F17.200 - Nicotine dependence, unspecified, uncomplicated (9) Thrush Status: Resolved Code(s): B37.0 - Candidal stomatitis (10) Intertrigo Status: Chronic Code(s): L30.4 - Erythema intertrigo (11) HTN (hypertension) Status: Chronic Code(s): I10 - Essential (primary) hypertension (12) HLD (hyperlipidemia) Status: Chronic Code(s): E78.5 - Hyperlipidemia, unspecified (13) Family history of premature CAD Status: Chronic Code(s): Z82.49 - Family history of ischemic heart disease and other diseases of the circulatory system Comment: Dad at 53 and his paternal uncle of CAD in his early 50's also (14) Chronic steroid use Status: Chronic Comment: being tapered down and currently on 20 mg (15) COPD (chronic obstructive pulmonary disease) Status: Chronic Code(s): J44.9 - Chronic obstructive pulmonary disease, unspecified Comment: PFT's in 2016 showed restrictive lung disease (16) BERT (obstructive sleep apnea) Status: Chronic Code(s): G47.33 - Obstructive sleep apnea (adult) (pediatric) Comment: does not wear PAP device and does not consistently wear O2 at night or when sleeping during the day. He uses it when he thinks he needs it. (17) Chronic hypoxemic respiratory failure Status: Chronic Code(s): J96.11 - Chronic respiratory failure with hypoxia Comment: on 4-5 LPM PRN? (18) Superficial thrombophlebitis of leg Status: Chronic Code(s): I80.00 - Phlebitis and thrombophlebitis of superficial vessels of unspecified lower extremity Comment: He is on full dose Xarelto ----- I think he has also had DVT in the past (19) Anemia Status: Acute Code(s): D64.9 - Anemia, unspecified (20) Chronic prescription benzodiazepine use Status: Chronic Code(s): Z79.899 - Other intermediate accountant (current) drug therapy (21) Actinomyces infection Status: Acute Code(s): A42.9 - Actinomycosis, unspecified Comment: in the non-healing wound from extensive debridement for Grecia's gangrene (22) Hx of deep venous thrombosis Status: Resolved Code(s): Z86.718 - Personal history of other venous thrombosis and embolism Comment: in 2017. Has also had superficial thrombophlebitis (23) Goiter Status: Chronic Code(s): E04.9 - Nontoxic goiter, unspecified (24) Hypothyroidism Status: Chronic Code(s): E03.9 - Hypothyroidism, unspecified (25) Colon polyps Status: Chronic Code(s): K63.5 - Polyp of colon (26) Non-healing surgical wound Status: Acute Qualifiers: Encounter type: subsequent encounter Qualified Code(s): T81.89XD - Other complications of procedures, not elsewhere classified, subsequent encounter Code(s): T81.89XA - Other complications of procedures, not elsewhere classified, initial encounter Comment: due to extensive debridement of the R buttock, perineum and base of the scrotum for grecia's gangrene. Extends into the muscle but not into bone. it surrounds the anus. (27) Deficient knowledge of wound care Status: Acute (28) Knowledge deficit of medication regimen Status: Chronic (29) Knowledge deficit of disease process Status: Chronic Type of Wound Date of Service: 08/13/20 Chief Complaint: non-healing wound due to Grecia's gangrene with extensive debridement of the R buttock and perineum extending anteriorly into the scrotum History of Wound: Pt was seen in the ED at [facility] on 06/28/[address] of the abd/pelvis showed a right perianal fasciitis with extension inferiorly and posteriorly to the right infra gluteal fold of the right buttock with inflammatory reaction and subcutaneous soft tissue swelling of the scrotum. He was transferred to [facility] for suspected Grecia's gangrene and on 06/30/2020 he underwent extensive debridement of devitalized tissue by Dr. Millan. He was discharged on 07/05 home with a wound vac and has had no HHC. His dtr has been using W-D dressings twice daily. Progress of Wound: He has not finished the Linezolid because it tears his stomach up. He tried taking it with yogurt but, it did not help much. He is not wearing his oxygen when sleeping consistently. BP the past 2 times he has been here has been 199/95 and today it is 164/109. He is taking only Cozaar 25 mg daily for HTN and he tells me that it is up due to pain but it is good when he is at Dr. Carranza's office. I suspect it is elevated at other times also and is more often uncontrolled. Tells me that his weight is down 10 lbs since he started back on Lasix. He has been able to decrease the Prednisone to 20 mg daily. - Physical Exam Vital Signs Temp Pulse Resp BP 97.2 F L 110 H 20 H 164/109 H 07/24/20 13:03 07/24/20 13:03 07/24/20 13:03 07/24/20 13:03 General: Alert, Oriented x3, Cooperative, No apparent distress Lungs: Clear to auscultation, Diminished - More likely than not secondary to body habitus Cardiovascular: Regular rate, Regular Rhythm, No Gallop, - - Distant heart sounds Abdomen: Soft, Non Tender, Non-Distended, Obese Wound Measurements and Assessment - Nurse 1 - General Ulcer Measurement Start: 07/10/20 14:00 Freq: Status: Active Protocol: Activity Type Activity Date Activity User E-Sign Co-Sign Detail Recorded Client Recorded Date Recorded By Document 07/24/20 13:03 DL [id number] 07/24/20 13:09 DL 07/24/20 13:03 Wound Center Nurse 1 [Ulcer Assessment] #1 right buttocks/perineum -Combined with other wound No -Current Size (cm) - Length 4 -Current Size (cm) - Width 25 -Current Size (cm) - Depth 6.2 -Total Square Cm 100 -Photo Taken No -Epithelialization None Present -Tunneling No -Undermining/Tunneling No -Circular Undermining No -Exudate Amt Large -Exudate Type Serosanguineous -Wound Margin Distinct, Outline Attached -Granulation Amt Large (67-100%) -Granulation Quality Red -Slough/Fibrin Yes -Necrosis Amt Small (1-33%) -Necrotic Tissue Type Adherent Slough -Texture (Joanne-wound Skin Appearance) Assessed, Scarring -Moisture (Joanne-wound Skin Appearance Assessed ) -Color (Joanne-wound Skin Appearance) Assessed -Temperature (Joanne-wound Skin No Abnormality Appearance) (Pt Warm) -Tenderness on Palpation (Joanne-wound Yes Skin Appearance) -Ulcer Cleansing soapy water -Foul Odor after Cleansing No -Anesthetic Used 4% Lidocaine Solution The wound is approximately the same size. There is yellow adherent slough present......about 20% of the wound. the rest of the wound is beefy red granulation tissue. The is no odor and no necrotic tissue. Psych/Mental Status: Appropriate, Flat Affect Debridement Note Post-Debridement Measurements/Treatment [place] - Nurse 2 - General Ulcer CM Notes Start: 07/10/20 14:00 Freq: Status: Active Protocol: Activity Type Activity Date Activity User E-Sign Co-Sign Detail Recorded Client Recorded Date Recorded By Document 07/10/20 16:58 PL [id number] 07/10/20 16:59 PL 07/10/20 16:58 Wound Center Nurse 2 #1 right buttocks/perineum -Procedure Performed No Pain Scale: 0-10 Numeric Is Patient Pain Free? Yes [place] - Nurse 3 - General Ulcer D/C NN Start: 07/10/20 14:00 Freq: Status: Active Protocol: Activity Type Activity Date Activity User E-Sign Co-Sign Detail Recorded Client Recorded Date Recorded By Document 07/10/20 16:15 MW [id number] 07/10/20 16:16 MW Document 07/17/20 14:25 DL [id number] 07/17/20 14:27 DL 07/10/20 07/17/20 16:15 14:25 Wound Care Nurse 3 #1 right buttocks/perineum -Ulcer Cleansing Rinsed/ Wound Cleanser Irrigated with Saline -Foul Odor after Cleansing No No -Negative Pressure Wound Therapy N/A -Other Dressing moist saline gauze -Primary Dressing Covered/Secured with Dry Gauze & Dry Gauze Roll Gauze, Secured with Tape -Other Covering GAUZE WET-TO DRY Treatment Response Procedure Procedure Tolerated Well Tolerated Well Pain Scale: 0-10 Numeric Is Patient Pain Free? Yes Yes Teaching: Wound Center Dressing Your Wound -Person Taught Patient,Family -Teaching Method Discussion, Demonstration -Response to teaching Verbalize understanding WC - Visit Discharge Discharge Condition Stable Stable Ambulatory Status Ambulatory,Cane Ambulatory Transportation Private Auto Private Auto Accompanied by DAUGHTER Medication Reconcilliation completed & No provided to patient/care provider Clinical Summary of Care Provided Yes No debridement was completed today Assessment/Plan Active Problems History of Grecia's gangrene (Acute) surgery to extensively debride devitalized tissue in the R buttock and perineum. Type 2 diabetes mellitus (Chronic) Super obesity (Chronic) Rheumatoid arthritis (Chronic) IBS (irritable bowel syndrome) (Chronic) Tobacco dependence (Chronic) Intertrigo (Chronic) HTN (hypertension) (Chronic) HLD (hyperlipidemia) (Chronic) Family history of premature CAD (Chronic) Dad at 53 and his paternal uncle of CAD in his early 50's also Chronic steroid use (Chronic) being tapered down and currently on 20 mg COPD (chronic obstructive pulmonary disease) (Chronic) PFT's in 2016 showed restrictive lung disease BERT (obstructive sleep apnea) (Chronic) does not wear PAP device and does not consistently wear O2 at night or when sleeping during the day. He uses it when he thinks he needs it. Chronic hypoxemic respiratory failure (Chronic) on 4-5 LPM PRN? Superficial thrombophlebitis of leg (Chronic) He is on full dose Xarelto ----- I think he has also had DVT in the past Anemia (Acute) Chronic prescription benzodiazepine use (Chronic) Actinomyces infection (Acute) in the non-healing wound from extensive debridement for Grecia's gangrene Goiter (Chronic) Hypothyroidism (Chronic) Colon polyps (Chronic) Non-healing surgical wound (Acute) due to extensive debridement of the R buttock, perineum and base of the scrotum for grecia's gangrene. Extends into the muscle but not into bone. it surrounds the anus. Deficient knowledge of wound care (Acute) Knowledge deficit of medication regimen (Chronic) Knowledge deficit of disease process (Chronic) Assessment: Impressions. 1. extensive non-helaing wound of the R buttock and R perineum and scrotum following extensive debridement for grecia's gangrene on 06/30/20 at [facility]. 2. 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 3. dehydration. 4. Thrush. 5. Intertrigo. 6. DM II -hemoglobin A1c in July was 7%. Diabetes is diet controlled. 7. untreated severe BERT - currently no even wearing O2 at night. 8. severe restrictive lung disease. 9. Chronic hypoxic respiratory failure. 10. Recent acute renal failure more likely than not secondary to sepsis. 11. Hypertension. 12. Hyperlipidemia. 13. Positive family history of coronary artery disease with his father passing at 53 with myocardial infarction. 14. Super obesity. 15. Rheumatoid arthritis. 16. Hypothyroidism with goiter. 17. Chronic benzodiazepine use. 18. Gabapentin-cannot tell me why he takes this. He does have a history of meralgia paresthetica. 19. Tobacco dependence tobacco cessation counseling was given. I told him I would write a prescription for a NicoDerm patch if he desired. 20. wound colonization with MRSA, E. coli and Enterococcus. Moreno is not able to accept that the likelihood of recurrent Grecia's gangrene is high given the open wound with daily contamination with stool. He is not a candidate for a wound VAC until he has a diverting colostomy so that stool can be kept out of the wound. We discussed the marked increase in risk for complications and transferred to long-term after any surgery. He is fixated on being home to care for his family but, I told him he was piper to have survived the first episode of grecia's gangrene and he may not survive another infection. Plan: I spoke with Dr. Boothe who reviewed the most recent CT of the abd and pelvis and spoke with anesthesia. He feels there is enough redundancy in the colon to do a diverting colostomy but, due to mutiple medical co-morbities and size (we have no bariatric beds large enough to accomodate him and we do not have the equipment to be able to move him around post-op) he would be more appropriate for surgery at a tertiary care center, like [facility] or [facility]. He is at high risk (31%) for serious complications, high risk for readmission (26%), increased risk for (6.6%) and very high risk for DC to SNF (47.3%). He is also at increassed risk for sepsis, return to the OR, renal failure and surgical site infection. Results are according to the NSQIP surgical risk calculator. We talked again about his options. I think if the wound is to heal he will need a diverting colostomy to keep the stool out of the wound. Without a diverting colostomy in this pt with uncontrolled DM, super obestiry, severe restrictive lung disease, untreated BERT, chronic high dose steroid use and hx of grecia's gangrene with extensive perineal wound extending into muscle he is at high risk for recurrent infections/sepsis/ due to infection. We discussed tapering steroids down, consultation with [facility], tight BS control, getting the BIPAP unit re-calibrated, discontinueing smoking, weight loss, getting off Valium, admission to an SNF to optimize wound in preparation for a graft, with muscle flap, going forward. 45 minutes was spent in the care of this patient. Will review the lab when available. I spoke with Dr. Norris who agrees getting this patient through the process is going to be a daunting task and will require a lot of diligence and active participation on his part. He is clear he does not want to . We need to get him using the BIPAP if we are going to effectively treat depression and improve his motivation to help himself. 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 He may benefit from a consultation with Dr. Flores since he continues to insist that if the scrotum was closed things would get better. 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 Office Visits / Consults: [id number] OV [id number] Est
== END 2020-08-02 23:59 ==
LOC: WC 13:00
PROVIDERS: PCP Family Medicine; Visit Provider Internal Medicine
DX: S30.91XD Unspecified superficial injury of lower back and pelvis, subsequent encounter (principal); N34.0 Urethral abscess; N49.3 Fournier gangrene; N50.89 Other specified disorders of the male genital organs; E86.0 Dehydration; B37.0 Candidal stomatitis; L30.4 Erythema intertrigo; E11.9 Type 2 diabetes mellitus without complications; G47.33 Obstructive sleep apnea (adult) (pediatric); E03.9 Hypothyroidism, unspecified; E66.01 Morbid (severe) obesity due to excess calories; J96.11 Chronic respiratory failure with hypoxia; M06.9 Rheumatoid arthritis, unspecified; E78.5 Hyperlipidemia, unspecified; I10 Essential (primary) hypertension; I25.2 Old myocardial infarction; F17.200 Nicotine dependence, unspecified, uncomplicated; Z63.4 Disappearance and death of family member; Z79.52 Long term (current) use of systemic steroids; Z82.49 Family history of ischemic heart disease and other diseases of the circulatory system; Z86.718 Personal history of other venous thrombosis and embolism; Z88.0 Allergy status to penicillin; Z88.2 Allergy status to sulfonamides; Z93.3 Colostomy status; K58.9 Irritable bowel syndrome, unspecified; J44.9 Chronic obstructive pulmonary disease, unspecified; I80.00 Phlebitis and thrombophlebitis of superficial vessels of unspecified lower extremity; D64.9 Anemia, unspecified; A42.9 Actinomycosis, unspecified; E04.9 Nontoxic goiter, unspecified; Z87.438 Personal history of other diseases of male genital organs; F32.9 Major depressive disorder, single episode, unspecified; F41.9 Anxiety disorder, unspecified; R30.0 Dysuria
CPT/HCPCS: 87070; 87075; 87077; 87186; 87205; 99212; 99213; G0463

== ENCOUNTER 2020-08-20 09:58 | Outpatient (RCR) | payer MEDICAID, SELFPAY ==
[2020-08-03 00:38] VITALS: BP 164/109; PULSE 110; RESP 20; TEMP 36.2
[2020-08-20 10:22] VITALS: BP 185/98; PULSE 108; RESP 24; TEMP 36.6; BMI 58.0
--- NOTE | 2020-08-20 20:21 | HP.PCM_ITS ---
History of Present Illness Date of Service: 08/20/20 - WOUND CENTER CONSULT REFERRING PHYSICIAN: Dr. Scruggs. TELEPHONE SERVICE ADVISER: Dr. Flores. 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 History of Wound: Pt was seen in the ED at [facility] on 06/28/[address] of the abd/pelvis showed a right perianal fasciitis with extension inferiorly and posteriorly to the right infra gluteal fold of the right buttock with inflammatory reaction and subcutaneous soft tissue swelling of the scrotum. 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 Millan. He was discharged on 07/05 home with a wound vac and has had no HHC. His dtr has been using W-D dressings twice daily. Wound culture was obtained on 07/10/20. It showed E. coli, MRSA, and Enterococcus faecalis. He was placed on Cefadroxil and Linezolid. He is finishing them up. I was asked to evaluate this patient for surgical options for treatment. 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) Ulcer of perianal area with fat layer exposed (Chronic) Type 2 diabetes mellitus (Chronic) Super obesity (Chronic) Rheumatoid arthritis (Chronic) IBS (irritable bowel syndrome) (Chronic) Tobacco dependence (Chronic) Intertrigo (Chronic) HTN (hypertension) (Chronic) HLD (hyperlipidemia) (Chronic) Family history of premature CAD (Chronic) Dad at 53 and his paternal uncle of CAD in his early 50's also Chronic steroid use (Chronic) being tapered down and currently on 20 mg COPD (chronic obstructive pulmonary disease) (Chronic) PFT's in 2016 showed restrictive lung disease BERT (obstructive sleep apnea) (Chronic) does not wear PAP device and does not consistently wear O2 at night or when sleeping during the day. He uses it when he thinks he needs it. Chronic hypoxemic respiratory failure (Chronic) on 4-5 LPM PRN? Superficial thrombophlebitis of leg (Chronic) He is on full dose Xarelto ----- I think he has also had DVT in the past Chronic prescription benzodiazepine use (Chronic) Goiter (Chronic) Hypothyroidism (Chronic) Colon polyps (Chronic) Knowledge deficit of medication regimen (Chronic) Knowledge deficit of disease process (Chronic) Surgical History: - - extensive debridement right perianal area with extension onto perineum and base of scrotum for Chanel's gangrene in [place] in 06/22. Allergies/Adverse Reactions: Allergies Penicillins Allergy (Verified 07/07/20 11:36) Hives Sulfa (Sulfonamide Antibiotics) Allergy (Verified 07/07/20 11:36) Hives etanercept [From Enbrel] Adverse Reaction (Verified 07/07/20 11:36) Swelling rivaroxaban [From Xarelto] Adverse Reaction (Verified 07/07/20 11:36) Nausea warfarin sodium [From Coumadin] Adverse Reaction (Verified 07/07/20 11:36) Nausea Home Medications: Ambulatory Orders Medication Instructions Recorded Levothyroxine [Synthroid] 150 mcg PO DAILY 06/22/13 Diazepam [Valium] 10 mg PO Q6H PRN 03/03/16 Doxycycline [Vibramycin] 100 mg PO BID #20 capsule 04/14/17 predniSONE tablet 20 mg PO DAILY@0800 04/14/17 Albuterol Inhaler [Ventolin Hfa 2 puff INHALATION Q6H PRN PRN 07/07/20 (SP)] Ascorbic Acid [Vitamin C] 500 mg PO BID 07/07/20 Bumetanide 2 mg PO DAILY 07/07/20 Cyclobenzaprine HCl 10 mg PO TID PRN PRN 07/07/20 Ergocalciferol [Vitamin D] 50,000 unit PO Q7D 07/07/20 Ferrous Sulfate 325 mg PO DAILY 07/07/20 Gabapentin [Neurontin] 100 mg PO QHS 07/07/20 Losartan Potassium 25 mg PO DAILY 07/07/20 Omeprazole 20 mg PO BID 07/07/20 Oxycodone [Oxyir] 5 mg PO Q6H PRN PRN 07/07/20 Rivaroxaban [Xarelto] 20 mg PO DAILY 07/07/20 Zinc Sulfate 220 mg PO DAILY 07/07/20 Zolpidem Tartrate 5 mg PO QHS PRN 07/07/20 Cefadroxil 1 gm PO BID #14 tab 07/17/20 Linezolid 600 mg PO BID #14 tab 07/17/20 Lives: Spouse/ Significant Other Smoking Status: Current every day smoker Alcohol: Rare Drugs: None Review of Systems Constitutional: Reports: Fatigue. Denies: Fever, Malaise Eyes: Denies: Cataracts HEENT: Denies: Nasal Congestion, Sore Throat Cardiovascular: Denies: Chest Pain Respiratory: Reports: - - patient is a smoker.. Denies: Cough, Shortness of Br eath Gastrointestinal: Denies: Constipation, Diarrhea, Nausea, Vomiting Genitourinary: Denies: Frequency, Hematuria, Incontinence Musculoskeletal: Reports: - - has arthritis.. Denies: Back Pain, Hand Pain, Neck Pain Skin: Reports: Wounds - has nonhealing ulcers right perianal area, perineum, and base of scrotum. Neurological: Denies: Headaches Psychiatric: Reports: Anxiety. Denies: Depression Endocrine: Reports: Hx of Thyroiditis, - - has diabetes mellitus. Hematologic/ Lymphatic: Denies: Anemia, Easy Bruising - Physical Exam Vital Signs Temp Pulse Resp BP 98 F 108 H 24 H 185/98 H 08/20/20 10:22 08/20/20 10:22 08/20/20 10:22 08/20/20 10:22 General: Alert, Oriented x3 HEENT: PERRLA, EOMI Oral: Moist Mucosa Neck: Supple Lungs: Clear to auscultation Cardiovascular: Regular rate, Regular Rhythm Abdomen: Soft, Non-Distended Extremities: No clubbing, No cyanosis, Edema - mild edema in lower extremities. Skin: Ulcer/ Wound - in the right perianal area with extension onto perineum and base of scrotum is a nonhealing ulcer. Good granulation tissue seen. Tender to palpation. No evidence of further infection at this time. Measures 20 x 3 x 3 cm. Wound Measurements and Assessment WC - Nurse 1 - General Ulcer Measurement Start: 08/20/20 10:22 Freq: Status: Active Protocol: Activity Type Activity Date Activity User E-Sign Co-Sign Detail Recorded Client Recorded Date Recorded By Document 08/20/20 10:22 DL [id number] 08/20/20 10:24 DL 08/20/20 10:22 Wound Center Nurse 1 [Ulcer Assessment] #1 right buttocks/perineum -Current Size (cm) - Length 20 -Current Size (cm) - Width 2.5 -Current Size (cm) - Depth 3 -Total Square Cm 50.0 -Photo Taken No -Exudate Amt Medium -Exudate Type Serosanguineous -Wound Margin Distinct, Outline Attached -Granulation Amt Large (67-100%) -Granulation Quality [place],Red -Necrosis Amt Small (1-33%) -Necrotic Tissue Type Adherent Slough -Structure Exposed N/A -Texture (Joanne-wound Skin Appearance) Scarring -Moisture (Joanne-wound Skin Appearance No Abnormality ) -Color (Joanne-wound Skin Appearance) No Abnormality -Temperature (Joanne-wound Skin No Abnormality Appearance) (Pt Warm) -Tenderness on Palpation (Joanne-wound No Skin Appearance) -Ulcer Cleansing Wound Cleanser -Foul Odor after Cleansing No -Anesthetic Used 4% Lidocaine Solution [place] - Nurse 2 - General Ulcer CM Notes Start: 08/20/20 10:22 Freq: Status: Active Protocol: Activity Type Activity Date Activity User E-Sign Co-Sign Detail Recorded Client Recorded Date Recorded By Document 08/20/20 11:04 NANDO [id number] 08/20/20 11:10 NANDO 08/20/20 11:04 Wound Center Nurse 2 [Procedure/Treatment] -Time 11:06 -Correct Patient Yes -Correct Side, Site, Position Yes -Correct Procedure Yes -Procedure Performed Yes -Type of Procedure Debridement -Clinical Debridement Subcutaneous -Tissue Removed Subcutaneous -Post Debridement (cm) - Length 2 -Post Debridement (cm) - Width 21 -Post Debridement (cm) - Depth 3.8 -Total Square (Post) (cm) 42 -Area of Debridement (cm) - Length 2 -Area of Debridement (cm) - Width 21 -Total Square (Area) (cm) 42 -Tunneling No -Undermining/Tunneling No -Circular Undermining No -Wound/Ulcer Outcome Not Healed -Ulcer Cleansing Rinsed/ Irrigated with Saline -Foul Odor after Cleansing No -Bioengineered Tissue No -Bleeding Controlled with Pressure -Offloading No -Treatment Response Procedure Tolerated Well -Debridement - Subq, 1st 20sq cm Yes -Debridement, SubQ, ea addt'l 20sq cm 2 or part thereof [See Physician Procedure note for Specifics] Pain Scale: 0-10 Numeric [Pain] -Is Patient Pain Free? Yes [place] - Nurse 3 - General Ulcer D/C NN Start: 08/20/20 10:22 Freq: Status: Active Protocol: Activity Type Activity Date Activity User E-Sign Co-Sign Detail Recorded Client Recorded Date Recorded By Document 08/20/20 11:25 JOSÉ LUIS [id number] 08/20/20 11:25 JOSÉ LUIS 08/20/20 11:25 Wound Care Nurse 3 [Wound Dressing] #1 right buttocks/perineum -Primary Dressing Covered/Secured Dry Gauze with Pain Scale: 0-10 Numeric [Pain] -Is Patient Pain Free? Yes WC - Visit Discharge [Visit Discharge Information] -Discharge Condition Stable -Ambulatory Status Ambulatory,Cane -Transportation Private Auto Lymphatic: No Cervical, Supraclavicular, or Inguinal Adenopathy Neurological: Cranial nerves II-XII grossly intact Psych/Mental Status: Normal Affect, Appropriate Debridement Note Post-Debridement Measurements/Treatment [place] - Nurse 2 - General Ulcer CM Notes Start: 08/20/20 10:22 Freq: Status: Active Protocol: Activity Type Activity Date Activity User E-Sign Co-Sign Detail Recorded Client Recorded Date Recorded By Document 08/20/20 11:04 NANDO [id number] 08/20/20 11:10 NANDO 08/20/20 11:04 Wound Center Nurse 2 #1 right buttocks/perineum -Time 11:06 -Correct Patient Yes -Correct Side, Site, Position Yes -Correct Procedure Yes -Procedure Performed Yes -Type of Procedure Debridement -Clinical Debridement Subcutaneous -Tissue Removed Subcutaneous -Post Debridement (cm) - Length 2 -Post Debridement (cm) - Width 21 -Post Debridement (cm) - Depth 3.8 -Total Square (Post) (cm) 42 -Area of Debridement (cm) - Length 2 -Area of Debridement (cm) - Width 21 -Total Square (Area) (cm) 42 -Tunneling No -Undermining/Tunneling No -Circular Undermining No -Wound/Ulcer Outcome Not Healed -Ulcer Cleansing Rinsed/ Irrigated with Saline -Foul Odor after Cleansing No -Bioengineered Tissue No -Bleeding Controlled with Pressure -Offloading No -Treatment Response Procedure Tolerated Well -Debridement - Subq, 1st 20sq cm Yes -Debridement, SubQ, ea addt'l 20sq cm 2 or part thereof Pain Scale: 0-10 Numeric Is Patient Pain Free? Yes [place] - Nurse 3 - General Ulcer D/C NN Start: 08/20/20 10:22 Freq: Status: Active Protocol: Activity Type Activity Date Activity User E-Sign Co-Sign Detail Recorded Client Recorded Date Recorded By Document 08/20/20 11:25 JOSÉ LUIS [id number] 08/20/20 11:25 JOSÉ LUIS 08/20/20 11:25 Wound Care Nurse 3 #1 right buttocks/perineum -Primary Dressing Covered/Secured with Dry Gauze Pain Scale: 0-10 Numeric Is Patient Pain Free? Yes WC - Visit Discharge Discharge Condition Stable Ambulatory Status Ambulatory,Cane Transportation Private Auto Wound debrided: #1 Right perianal area with extension onto perineum and base of scrotum. Laterality: Right Wound Grade/Stage: 3. Type of Debridement: Excisional debridement Anesthesia Used: 4% Lidocaine Solution Depth: Down to and including healthy tissue, in the subcutaneous layer Percentage of wound debrided: 100 Instrument Used: 7mm curette Tissue Removed: subcutaneous tissue. Severity: Fat Layer Exposed Amount of bleeding with debridement: Mild Bleeding Controlled with: Pressure Patient tolerated procedure well Assessment/Plan Assessment: 1. Nonhealing ulcer right perianal area with extension onto perineum and base of scrotum. 2. Diabetes mellitus. 3. MRSA. 4. History of Chanel's gangrene. 5. History of extensive debridement. 6. Obesity. 7. Smoker. Plan: They are doing twice a day saline dressing changes. Instructed them on the importance of getting the dressing all the way to the base of the ulcer to minimize recurrence. Twice a day dressing changes can be problematic. Will change the dressing to once a day Dakin's dressing. Continue Cefadroxil and Linezolid for positive culture on 07/10/20 as he is finishing them. It showed E. coli, MRSA, and Enterococcus faecalis. Encourage nutritional supplementation with protein to help the healing process. Surgically closing this ulcer is problematic. Would recommend aggressive wound care and try and see how much of this ulcer heals on its own. Can always do delayed closure with skin grafting. However at this time, the ulcer is too deep for a skin graft. If we secondarily close the ulcer, he is at risk for recurrence of his infection. Before any attempts at wound closure, he would benefit from a temporary diverting colostomy. General Surgery felt the colostomy should be done at a tertiary center. I agree. Will follow along with this patient once a month. In the interim, he can followup with his Wound Center MD on a weekly basis. Encouraged patient to stop smoking as it may have deleterious effects on wound healing. Office Visits / Consults: [id number] OV L4 New - -25 Modifier ICD-10 - L98.492, N50.89, E11.9, Z87.438, Z98.890, A49.02, E66.9, F17.200 [id number]: [id number] Felipa subq tissue 20 sq cm/< - ICD-10 - L98.492, N50.89, E11.9, Z87.438, Z98.890, A49.02, E66.9, F17.200 Add On Codes: [id number] Felipa subq tissue add-on - X2 Units ICD-10 - L98.492, N50.89, E11.9, Z87.438, Z98.890, A49.02, E66.9, F17.200
== END 2020-09-02 23:59 ==
LOC: WC 09:58
PROVIDERS: PCP Family Medicine; Visit Provider Internal Medicine
DX: L98.492 Non-pressure chronic ulcer of skin of other sites with fat layer exposed (principal); N50.89 Other specified disorders of the male genital organs; E11.9 Type 2 diabetes mellitus without complications; A49.02 Methicillin resistant Staphylococcus aureus infection, unspecified site; E66.9 Obesity, unspecified; F17.200 Nicotine dependence, unspecified, uncomplicated; Z87.438 Personal history of other diseases of male genital organs; Z98.890 Other specified postprocedural states; Z79.52 Long term (current) use of systemic steroids; Z82.49 Family history of ischemic heart disease and other diseases of the circulatory system; Z86.718 Personal history of other venous thrombosis and embolism; Z88.0 Allergy status to penicillin; Z88.2 Allergy status to sulfonamides; Z93.3 Colostomy status; E03.9 Hypothyroidism, unspecified; E78.5 Hyperlipidemia, unspecified; G47.33 Obstructive sleep apnea (adult) (pediatric); I10 Essential (primary) hypertension; J44.9 Chronic obstructive pulmonary disease, unspecified; M06.9 Rheumatoid arthritis, unspecified
CPT/HCPCS: 11042; 11045

== ENCOUNTER 2020-08-22 08:30 | Outpatient (RCR) | payer MEDICAID, SELFPAY ==
[2020-07-17 13:18] VITALS: BMI 58.0
== END 2020-08-22 23:59 | disposition home or self-care (01) ==
LOC: DC 08:30
PROVIDERS: PCP Family Medicine; Visit Provider Internal Medicine
DX: E11.9 Type 2 diabetes mellitus without complications (principal); E66.9 Obesity, unspecified; K58.9 Irritable bowel syndrome, unspecified
CPT/HCPCS: G0108

== ENCOUNTER 2020-09-04 13:15 | Outpatient (RCR) | payer MEDICAID, SELFPAY ==
[2020-09-03 00:33] VITALS: BP 185/98; PULSE 108; RESP 24; TEMP 36.6
[2020-09-04 13:27] VITALS: BP 149/113; PULSE 116; RESP 22; TEMP 36.8; BMI 58.0
[2020-09-04 14:10] VITALS: BP 149/74; PULSE 107; RESP 20; TEMP 36.8
--- NOTE | 2020-09-04 16:17 | PCM.WC.PN ---
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 History of Wound: Pt was seen in the ED at [facility] on 06/28/[address] of the abd/pelvis showed a right perianal fasciitis with extension inferiorly and posteriorly to the right infra gluteal fold of the right buttock with inflammatory reaction and subcutaneous soft tissue swelling of the scrotum. 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 Millan. He was discharged on 07/05 home with a wound vac and has had no HHC. His dtr has been using W-D dressings twice daily. Wound culture was obtained on 07/10/20. It showed E. coli, MRSA, and Enterococcus faecalis. He was placed on Cefadroxil and Linezolid. He is finishing them up. I was asked to evaluate this patient for surgical options for treatment. Progress of Wound: He has not finished the Linezolid because it tears his stomach up. He tried taking it with yogurt but, it did not help much. He is not wearing his oxygen when sleeping consistently. BP the past 2 times he has been here has been 199/95 and today it is 164/109. He is taking only Cozaar 25 mg daily for HTN and he tells me that it is up due to pain but it is good when he is at Dr. Carranza's office. I suspect it is elevated at other times also and is more often uncontrolled. Tells me that his weight is down 10 lbs since he started back on Lasix. He has been able to decrease the Prednisone to 20 mg daily. 09/04/20 He is down to 7.5 mg daily on the Prednisone. He denies fevers, chills, sweats. He has seen the hr business partner consultant. He continues to smoke [address] Flores and he was changed to Dakin's solution. He tells me that the wound hammond severely with the Dakin's and he has to wash it off at times. Although he has seen [facility] [place] [facility] he tells me that he has not eaten yet today and this is because he has no money. - Physical Exam Vital Signs Temp Pulse Resp BP 98.3 F 107 H 20 H 149/74 H 09/04/20 14:10 09/04/20 14:10 09/04/20 14:10 09/04/20 14:10 Wound Measurements and Assessment WC - Nurse 1 - General Ulcer Measurement Start: 09/04/20 13:27 Freq: Status: Active Protocol: Activity Type Activity Date Activity User E-Sign Co-Sign Detail Recorded Client Recorded Date Recorded By Document 09/04/20 13:27 MW [id number] 09/04/20 13:29 MW 09/04/20 13:27 Wound Center Nurse 1 [Ulcer Assessment] #1 right buttocks/perineum -Combined with other wound No -Current Size (cm) - Length 17.0 -Current Size (cm) - Width 1.5 -Current Size (cm) - Depth 2.3 -Total Square Cm 25.50 -Photo Taken No -Epithelialization Small 1-33% -Tunneling No -Undermining/Tunneling No -Circular Undermining No -Exudate Amt Medium -Exudate Type Serosanguineous -Wound Margin Flat & Intact -Granulation Amt Large (67-100%) -Granulation Quality [place] -Slough/Fibrin Yes -Necrosis Amt Small (1-33%) -Structure Exposed N/A -Texture (Yair-wound Skin Appearance) Assessed, Scarring -Moisture (Yair-wound Skin Appearance No Abnormality, ) Assessed -Color (Yair-wound Skin Appearance) No Abnormality, Assessed -Temperature (Yair-wound Skin No Abnormality Appearance) (Pt Warm) -Tenderness on Palpation (Yair-wound Yes Skin Appearance) -Ulcer Cleansing SOAP AND WATER -Foul Odor after Cleansing No [Edema Assessment] -Lower Limb Edema Present No WC - Nurse 3 - General Ulcer D/C NN Start: 09/04/20 13:27 Freq: Status: Active Protocol: Activity Type Activity Date Activity User E-Sign Co-Sign Detail Recorded Client Recorded Date Recorded By Document 09/04/20 14:10 MS [id number] 09/04/20 14:15 MS 09/04/20 14:10 Wound Care Nurse 3 [Wound Dressing] #1 right buttocks/perineum -Ulcer Cleansing Rinsed/ Irrigated with Saline -Foul Odor after Cleansing No -Negative Pressure Wound Therapy N/A -Fibracol Plus 4x4 4 Vital Signs [Temperature Protocol: VS] -Temperature (97.8 F-99.1 F) 98.3 F -Temperature Source Oral [Pulse] -Pulse Rate (60-100 beats/min) 107 H [Respirations] -Respiratory Rate (12-18 breaths/min) 20 H -Respiratory rate source Observation [Blood Pressure] -Blood Pressure (90/60-120/80 mm Hg) 149/74 H -Blood Pressure Mean (mm Hg) 99 -Source Monitor -Position Supine -Blood Pressure Location Left Forearm WC - Visit Discharge [Visit Discharge Information] -Discharge Condition Stable -Ambulatory Status Ambulatory -Medication Reconcilliation completed Yes & provided to patient/care provider The wound is much improved over the last time I saw it on 07/24/21. It has gone from 100 cm2 to 25.5 cm2. the depth is now only 1.5 cm. The base is 100% granulation tissue. There is no yair-incisional erythema and there is no odor and no purulent DC. It is very clean. No debridement was necessary. A swab of the wound was taken and is going to be sent to the lab for culture. Debridement Note Post-Debridement Measurements/Treatment WC - Nurse 3 - General Ulcer D/C NN Start: 09/04/20 13:27 Freq: Status: Active Protocol: Activity Type Activity Date Activity User E-Sign Co-Sign Detail Recorded Client Recorded Date Recorded By Document 09/04/20 14:10 MS [id number] 09/04/20 14:15 MS 09/04/20 14:10 Wound Care Nurse 3 #1 right buttocks/perineum -Ulcer Cleansing Rinsed/ Irrigated with Saline -Foul Odor after Cleansing No -Negative Pressure Wound Therapy N/A -Fibracol Plus 4x4 4 Vital Signs Temperature (97.8 F-99.1 F) 98.3 F Temperature Source Oral Pulse Rate (60-100 beats/min) 107 H Respiratory Rate (12-18 breaths/min) 20 H Respiratory rate source Observation Blood Pressure (90/60-120/80 mm Hg) 149/74 H Blood Pressure Mean (mm Hg) 99 Source Monitor Position Supine Blood Pressure Location Left Forearm WC - Visit Discharge Discharge Condition Stable Ambulatory Status Ambulatory Medication Reconcilliation completed & Yes provided to patient/care provider No debridement was completed today Assessment/Plan Assessment: 1. Nonhealing ulcer right perianal area with extension onto perineum and base of scrotum. 2. Diabetes mellitus. 3. MRSA. 4. History of Chanel's gangrene. 5. History of extensive debridement. 6. Obesity. 7. Smoker. Plan: They are doing twice a day saline dressing changes. Instructed them on the importance of getting the dressing all the way to the base of the ulcer to minimize recurrence. Twice a day dressing changes can be problematic. Will change the dressing to once a day Dakin's dressing. Continue Cefadroxil and Linezolid for positive culture on 07/10/20 as he is finishing them. It showed E. coli, MRSA, and Enterococcus faecalis. Encourage nutritional supplementation with protein to help the healing process. Surgically closing this ulcer is problematic. Would recommend aggressive wound care and try and see how much of this ulcer heals on its own. Can always do delayed closure with skin grafting. However at this time, the ulcer is too deep for a skin graft. If we secondarily close the ulcer, he is at risk for recurrence of his infection. Before any attempts at wound closure, he would benefit from a temporary diverting colostomy. General Surgery felt the colostomy should be done at a tertiary center. I agree. Will follow along with this patient once a month. In the interim, he can followup with his Wound Center MD on a weekly basis. Encouraged patient to stop smoking as it may have deleterious effects on wound healing. 09/04/20 Marked improvement...the wound is healing from the bottom and john. There is no slough. He can not tolerate the Dakin's and there is no slough. Change the dressing to Fibracol. Return to clinic in 2 weeks to re-examine. His BP is very high today and he is only taking Losartan 25 mg. I increased the dose to [address] Norris. He does not have a BP cuff at home. His MM are very dry and he is tachycardic. I told him to increase his fluids or skip a few days on the Bumex. I recommended he quit smoking or cut back as much as possible. He was not wearing oxygen today when he came to the [facility]. Office Visits / Consults: [id number] OV L2 Est
== END 2020-09-30 23:59 ==
LOC: WC 13:15
PROVIDERS: PCP Family Medicine; Visit Provider Internal Medicine
DX: L98.492 Non-pressure chronic ulcer of skin of other sites with fat layer exposed (principal); N50.89 Other specified disorders of the male genital organs; E11.9 Type 2 diabetes mellitus without complications; A49.02 Methicillin resistant Staphylococcus aureus infection, unspecified site; E66.9 Obesity, unspecified; F17.210 Nicotine dependence, cigarettes, uncomplicated; Z87.438 Personal history of other diseases of male genital organs; Z98.890 Other specified postprocedural states; Z79.52 Long term (current) use of systemic steroids; Z82.49 Family history of ischemic heart disease and other diseases of the circulatory system; Z86.718 Personal history of other venous thrombosis and embolism; Z88.0 Allergy status to penicillin; Z93.3 Colostomy status
CPT/HCPCS: 87070; 87077; 87186; 87205; 99213; G0463

== ENCOUNTER 2020-10-16 13:00 | Outpatient (RCR) | payer MEDICAID, SELFPAY ==
[2020-10-01 00:29] VITALS: BP 149/74; PULSE 107; RESP 20; TEMP 36.8
[2020-10-16 13:11] VITALS: BP 156/93; PULSE 104; TEMP 36.7; BMI 58.0
--- NOTE | 2020-10-16 15:08 | PCM.WC.PN ---
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 (4) MRSA (methicillin resistant Staphylococcus aureus) Status: Resolved Code(s): A49.02 - Methicillin resistant Staphylococcus aureus infection, unspecified site (5) Non-healing surgical wound Status: Chronic Qualifiers: Encounter type: subsequent encounter Code(s): T81.89XA - Other complications of procedures, not elsewhere classified, initial encounter Comment: due to extensive debridement of the R buttock, perineum and base of the scrotum for grecia's gangrene. Extends into the muscle but not into bone. it surrounds the anus. (6) COPD (chronic obstructive pulmonary disease) Status: Chronic Code(s): J44.9 - Chronic obstructive pulmonary disease, unspecified Comment: PFT's in 2016 showed restrictive lung disease (7) Chronic hypoxemic respiratory failure Status: Chronic Code(s): J96.11 - Chronic respiratory failure with hypoxia Comment: on 4-5 LPM PRN? (8) Chronic prescription benzodiazepine use Status: Chronic Code(s): Z79.899 - Other fci (current) drug therapy (9) Chronic steroid use Status: Chronic Comment: being tapered down and currently on 20 mg (10) Colon polyps Status: Chronic Code(s): K63.5 - Polyp of colon (11) Family history of premature CAD Status: Chronic Code(s): Z82.49 - Family history of ischemic heart disease and other diseases of the circulatory system Comment: Dad at 53 and his paternal uncle of CAD in his early 50's also (12) Goiter Status: Chronic Code(s): E04.9 - Nontoxic goiter, unspecified (13) HLD (hyperlipidemia) Status: Chronic Code(s): E78.5 - Hyperlipidemia, unspecified (14) HTN (hypertension) Status: Chronic Code(s): I10 - Essential (primary) hypertension (15) Hypothyroidism Status: Chronic Code(s): E03.9 - Hypothyroidism, unspecified (16) IBS (irritable bowel syndrome) Status: Chronic Qualifiers: Code(s): K58.9 - Irritable bowel syndrome without diarrhea (17) Intertrigo Status: Chronic Code(s): L30.4 - Erythema intertrigo (18) BERT (obstructive sleep apnea) Status: Chronic Code(s): G47.33 - Obstructive sleep apnea (adult) (pediatric) Comment: does not wear PAP device and does not consistently wear O2 at night or when sleeping during the day. He uses it when he thinks he needs it. (19) Rheumatoid arthritis Status: Chronic Qualifiers: Code(s): M06.9 - Rheumatoid arthritis, unspecified (20) Super obesity Status: Chronic Code(s): E66.9 - Obesity, unspecified (21) Superficial thrombophlebitis of leg Status: Chronic Code(s): I80.00 - Phlebitis and thrombophlebitis of superficial vessels of unspecified lower extremity Comment: He is on full dose Xarelto ----- I think he has also had DVT in the past (22) Tobacco dependence Status: Chronic Code(s): F17.200 - Nicotine dependence, unspecified, uncomplicated (23) Type 2 diabetes mellitus Status: Chronic Code(s): E11.9 - Type 2 diabetes mellitus without complications (24) Ulcer of scrotum Status: Resolved Code(s): N50.89 - Other specified disorders of the male genital organs (25) Thrush Status: Resolved Code(s): B37.0 - Candidal stomatitis (26) Abscess of deep perineal space Status: Inactive Code(s): N34.0 - Urethral abscess Comment: subsequent visit Type of Wound Date of Service: 10/16/20 Chief Complaint: non-healing ulcer right perianal area extending onto perineum and base of scrotum after extensive debridement for Grecia's gangrene. History of Wound: Pt was seen in the ED at [facility] on 06/28/[address] of the abd/pelvis showed a right perianal fasciitis with extension inferiorly and posteriorly to the right infra gluteal fold of the right buttock with inflammatory reaction and subcutaneous soft tissue swelling of the scrotum. He was transferred to [facility] for suspected Grecia's gangrene and on 06/30/2020 he underwent extensive debridement of devitalized tissue by Dr. Millan. He was discharged on 07/05 home with a wound vac and has had no HHC. His dtr has been using W-D dressings twice daily. Wound culture was obtained on 07/10/20. It showed E. coli, MRSA, and Enterococcus faecalis. He was placed on Cefadroxil and Linezolid. He is finishing them up. I was asked to evaluate this patient for surgical options for treatment. Progress of Wound: He has not finished the Linezolid because it tears his stomach up. He tried taking it with yogurt but, it did not help much. He is not wearing his oxygen when sleeping consistently. BP the past 2 times he has been here has been 199/95 and today it is 164/109. He is taking only Cozaar 25 mg daily for HTN and he tells me that it is up due to pain but it is good when he is at Dr. Carranza's office. I suspect it is elevated at other times also and is more often uncontrolled. Tells me that his weight is down 10 lbs since he started back on Lasix. He has been able to decrease the Prednisone to 20 mg daily. 09/04/20 He is down to 7.5 mg daily on the Prednisone. He denies fevers, chills, sweats. He has seen the tactical air defense controller. He continues to smoke [address] Flores and he was changed to Dakin's solution. He tells me that the wound hammond severely with the Dakin's and he has to wash it off at times. Although he has seen renewals specialist he tells me that he has not eaten yet today and this is because he has no money. 10/16/20 The wound continues to contract. He is still on a Fibracol dressing. His dtr has been changing the dressings and he is not confined to the house so we will have to DC the HHC. He is teaching his son to drive and he is sitting in the car for an hour at a time. He denies F/C/night sweats. There is occasional serous DC on the dressing. He is eating more healthy. He continues to smoke but, is making a much better effort to take care of himself and he hopes to quit when life is less stressful - Physical Exam Vital Signs Temp Pulse Resp BP 98.0 F 104 H 20 H 156/93 H 10/16/20 13:11 10/16/20 13:11 10/01/20 00:29 10/16/20 13:11 General: Alert, Oriented x3, Cooperative, No apparent distress Wound Measurements and Assessment WC - Nurse 1 - General Ulcer Measurement Start: 10/16/20 13:11 Freq: Status: Active Protocol: Activity Type Activity Date Activity User E-Sign Co-Sign Detail Recorded Client Recorded Date Recorded By Document 10/16/20 13:11 KR [id number] 10/16/20 13:14 KR 10/16/20 13:11 Wound Center Nurse 1 [Ulcer Assessment] #1 right buttocks/perineum -Current Size (cm) - Length 7.2 -Current Size (cm) - Width 0.4 -Current Size (cm) - Depth 0.2 -Total Square Cm 2.88 -Exudate Amt Medium -Exudate Type Serosanguineous -Wound Margin Distinct, Outline Attached -Granulation Amt Large (67-100%) -Granulation Quality Red -Necrosis Amt Small (1-33%) -Necrotic Tissue Type Adherent Slough -Texture (Joanne-wound Skin Appearance) Assessed, Scarring -Moisture (Joanne-wound Skin Appearance No Abnormality, ) Assessed -Color (Joanne-wound Skin Appearance) No Abnormality, Assessed -Temperature (Joanne-wound Skin No Abnormality Appearance) (Pt Warm) -Tenderness on Palpation (Joanne-wound No Skin Appearance) -Ulcer Cleansing Rinsed/ Irrigated with Saline -Foul Odor after Cleansing No -Anesthetic Used 4% Lidocaine Solution WC - Nurse 2 - General Ulcer CM Notes Start: 10/16/20 13:11 Freq: Status: Active Protocol: Activity Type Activity Date Activity User E-Sign Co-Sign Detail Recorded Client Recorded Date Recorded By Document 10/16/20 13:19 MW [id number] 10/16/20 13:24 MW 10/16/20 13:19 Wound Center Nurse 2 [Procedure/Treatment] -Time 13:22 -Correct Patient Yes -Correct Side, Site, Position Yes -Correct Procedure Yes -Procedure Performed No -Post Debridement (cm) - Length 7.2 -Post Debridement (cm) - Width 0.4 -Post Debridement (cm) - Depth 0.2 -Total Square (Post) (cm) 2.88 -Tunneling No -Undermining/Tunneling No -Circular Undermining No -Wound/Ulcer Outcome Not Healed -Ulcer Cleansing Not Cleansed -Foul Odor after Cleansing No -Bioengineered Tissue No -Bleeding Controlled with NA -Offloading No [See Physician Procedure note for Specifics] Pain Scale: 0-10 Numeric [Pain] -Is Patient Pain Free? Yes - Nurse 3 - General Ulcer D/C NN Start: 10/16/20 13:11 Freq: Status: Active Protocol: Activity Type Activity Date Activity User E-Sign Co-Sign Detail Recorded Client Recorded Date Recorded By Document 10/16/20 13:41 DL [id number] 10/16/20 13:42 DL 10/16/20 13:41 Wound Care Nurse 3 [Wound Dressing] #1 right buttocks/perineum -Ulcer Cleansing Rinsed/ Irrigated with Saline -Foul Odor after Cleansing No -Other Dressing fibracol -Primary Dressing Covered/Secured Dry Gauze with [Post Procedure Tolerated] -Treatment Response Procedure Tolerated Well Pain Scale: 0-10 Numeric [Pain] -Is Patient Pain Free? Yes - Visit Discharge [Visit Discharge Information] -Discharge Condition Stable -Ambulatory Status Ambulatory -Transportation Private Auto The wound is now 2.88 centimeters squared, down from 25.5 cm? on 09/04/2020. the base is 100% granulating with no slough. There is no erythema surrounding the wound and there is no purulent DC. He denies pain. There is no odor. No debridement was done. Debridement Note Post-Debridement Measurements/Treatment - Nurse 2 - General Ulcer CM Notes Start: 10/16/20 13:11 Freq: Status: Active Protocol: Activity Type Activity Date Activity User E-Sign Co-Sign Detail Recorded Client Recorded Date Recorded By Document 10/16/20 13:19 MW [id number] 10/16/20 13:24 MW 10/16/20 13:19 Wound Center Nurse 2 #1 right buttocks/perineum -Time 13:22 -Correct Patient Yes -Correct Side, Site, Position Yes -Correct Procedure Yes -Procedure Performed No -Post Debridement (cm) - Length 7.2 -Post Debridement (cm) - Width 0.4 -Post Debridement (cm) - Depth 0.2 -Total Square (Post) (cm) 2.88 -Tunneling No -Undermining/Tunneling No -Circular Undermining No -Wound/Ulcer Outcome Not Healed -Ulcer Cleansing Not Cleansed -Foul Odor after Cleansing No -Bioengineered Tissue No -Bleeding Controlled with NA -Offloading No Pain Scale: 0-10 Numeric Is Patient Pain Free? Yes - Nurse 3 - General Ulcer D/C NN Start: 10/16/20 13:11 Freq: Status: Active Protocol: Activity Type Activity Date Activity User E-Sign Co-Sign Detail Recorded Client Recorded Date Recorded By Document 10/16/20 13:41 DL [id number] 10/16/20 13:42 DL 10/16/20 13:41 Wound Care Nurse 3 #1 right buttocks/perineum -Ulcer Cleansing Rinsed/ Irrigated with Saline -Foul Odor after Cleansing No -Other Dressing fibracol -Primary Dressing Covered/Secured with Dry Gauze Treatment Response Procedure Tolerated Well Pain Scale: 0-10 Numeric Is Patient Pain Free? Yes WC - Visit Discharge Discharge Condition Stable Ambulatory Status Ambulatory Transportation Private Auto No debridement was completed today Assessment/Plan Active Problems History of Grecia's gangrene (Chronic) surgery to extensively debride devitalized tissue in the R buttock and perineum. Type 2 diabetes mellitus (Chronic) Super obesity (Chronic) Rheumatoid arthritis (Chronic) IBS (irritable bowel syndrome) (Chronic) Tobacco dependence (Chronic) Intertrigo (Chronic) HTN (hypertension) (Chronic) HLD (hyperlipidemia) (Chronic) Family history of premature CAD (Chronic) Dad at 53 and his paternal uncle of CAD in his early 50's also Chronic steroid use (Chronic) being tapered down and currently on 20 mg COPD (chronic obstructive pulmonary disease) (Chronic) PFT's in 2016 showed restrictive lung disease BERT (obstructive sleep apnea) (Chronic) does not wear PAP device and does not consistently wear O2 at night or when sleeping during the day. He uses it when he thinks he needs it. Chronic hypoxemic respiratory failure (Chronic) on 4-5 LPM PRN? Superficial thrombophlebitis of leg (Chronic) He is on full dose Xarelto ----- I think he has also had DVT in the past Anemia (Chronic) Chronic prescription benzodiazepine use (Chronic) Goiter (Chronic) Hypothyroidism (Chronic) Colon polyps (Chronic) Non-healing surgical wound (Chronic) due to extensive debridement of the R buttock, perineum and base of the scrotum for grecia's gangrene. Extends into the muscle but not into bone. it surrounds the anus. Assessment: 1. Nonhealing ulcer right perianal area with extension onto perineum and base of scrotum. The wound has made steady improvement and now is down to 2.88 centimeters squared with 100% granulation tissue in the wound base. 2. Diabetes mellitus II. 3. MRSA infection - resolved. 4. History of Grecia's gangrene. Debrided at [facility]. 5. History of extensive debridement. 6. Obesity. 7. Smoker. 8. BERT. 9. chronic hypoxic respiratory failure. 10. 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 11. chronic steroid use for RA. 12. RA.....he is not seeing a sales and business development manager and is getting the Prednisone from Dr. Norris. He has been on Enbrel in the past but, it was stopped due to swelling. 13. COPD. 14. Hypothyroidism. 15. HTN. 16. tachycardia. 17. HLD. 18. Benzodiazepine use and Ambien use - does not wear CPAP and he also does not wear oxygen at night Plan: Surgically closing this ulcer is problematic. Would recommend aggressive wound care and try and see how much of this ulcer heals on its own. Can always do delayed closure with skin grafting. However at this time, the ulcer is too deep for a skin graft. If we secondarily close the ulcer, he is at risk for recurrence of his infection. Before any attempts at wound closure, he would benefit from a temporary diverting colostomy. General Surgery felt the colostomy should be done at. a tertiary center. I agree. 10/16/20 Continue the Fibracol dressing. Can sit for 1 hour a day to teach his son to drive but, he must return to the [facility] in 1 week to recheck the wound to make sure it is not getting worse with the sitting. Order a Gel cushion for him to use when he is sitting. Will follow along with this patient once a month. In the interim, he can followup with his Wound Center MD on a weekly basis. Encouraged patient to stop smoking as it may have deleterious effects on wound healing. Have him bring all his meds to his next appt. Office Visits / Consults: [id number] OV L2 Est
== END 2020-10-31 23:59 ==
LOC: WC 13:00
PROVIDERS: PCP Family Medicine; Visit Provider Internal Medicine
DX: L98.492 Non-pressure chronic ulcer of skin of other sites with fat layer exposed (principal); N50.89 Other specified disorders of the male genital organs; E11.9 Type 2 diabetes mellitus without complications; E66.9 Obesity, unspecified; A49.02 Methicillin resistant Staphylococcus aureus infection, unspecified site; F17.200 Nicotine dependence, unspecified, uncomplicated; Z87.438 Personal history of other diseases of male genital organs; Z98.890 Other specified postprocedural states; Z79.52 Long term (current) use of systemic steroids; Z82.49 Family history of ischemic heart disease and other diseases of the circulatory system; Z86.718 Personal history of other venous thrombosis and embolism; Z88.0 Allergy status to penicillin; Z88.2 Allergy status to sulfonamides; Z93.3 Colostomy status; G47.33 Obstructive sleep apnea (adult) (pediatric); J96.11 Chronic respiratory failure with hypoxia; E03.9 Hypothyroidism, unspecified; I10 Essential (primary) hypertension; Z79.01 Long term (current) use of anticoagulants; J44.9 Chronic obstructive pulmonary disease, unspecified
CPT/HCPCS: 99213; G0463

== ENCOUNTER 2020-11-28 08:00 | Outpatient (RCR) | payer MEDICAID, SELFPAY ==
[2020-11-01 00:38] VITALS: BP 156/93; PULSE 104; RESP 20; TEMP 36.7
[2020-11-28 08:02] VITALS: BP 199/94; PULSE 100; RESP 20; TEMP 36.4; BMI 58.0
--- NOTE | 2020-11-28 08:35 | PCM.WC.HP ---
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 History of Wound: Pt was seen in the ED at [facility] on 06/28/[address] of the abd/pelvis showed a right perianal fasciitis with extension inferiorly and posteriorly to the right infra gluteal fold of the right buttock with inflammatory reaction and subcutaneous soft tissue swelling of the scrotum. 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 Millan. He was discharged on 07/05 home with a wound vac and has had no HHC. His dtr has been using W-D dressings twice daily. Wound culture was obtained on 07/10/20. It showed E. coli, MRSA, and Enterococcus faecalis. He was placed on Cefadroxil and Linezolid. He is finishing them up. I was asked to evaluate this patient for surgical options for treatment. [facility] Home Medications levothyroxine 150 mcg PO DAILY 06/22/13 [History Last Taken 10/29/16] diazepam [Valium] 10 mg PO Q6H PRN 03/03/16 [History Last Taken 10/29/16] doxycycline hyclate 100 mg PO BID #20 capsule 04/14/17 [Rx Last Taken Unknown] prednisone 20 mg PO DAILY@0800 04/14/17 [History Last Taken Unknown] albuterol sulfate 2 puff INHALATION Q6H PRN PRN 07/07/20 [History Last Taken Unknown] ascorbic acid (vitamin C) 500 mg PO BID 07/07/20 [History Last Taken Unknown] bumetanide 2 mg PO DAILY 07/07/20 [History Last Taken Unknown] cyclobenzaprine 10 mg PO TID PRN PRN 07/07/20 [History Last Taken Unknown] ergocalciferol (vitamin D2) 50,000 unit PO Q7D 07/07/20 [History Last Taken Unknown] ferrous sulfate 325 mg PO DAILY 07/07/20 [History Last Taken Unknown] gabapentin 100 mg PO QHS 07/07/20 [History Last Taken Unknown] losartan 25 mg PO DAILY 07/07/20 [History Last Taken Unknown] omeprazole 20 mg PO BID 07/07/20 [History Last Taken Unknown] oxycodone 5 mg PO Q6H PRN PRN 07/07/20 [History Last Taken Unknown] rivaroxaban 20 mg PO DAILY 07/07/20 [History Last Taken Unknown] zinc sulfate 220 mg PO DAILY 07/07/20 [History Last Taken Unknown] zolpidem 5 mg PO QHS PRN 07/07/20 [History Last Taken Unknown] losartan 100 mg PO DAILY #30 tab 09/04/20 [Rx Last Taken Unknown] Allergy/AdvReac Type Severity Reaction Status Date / Time Penicillins Allergy Hives Verified 07/07/20 11:36 Sulfa (Sulfonamide Allergy Hives Verified 07/07/20 11:36 Antibiotics) etanercept [From Enbrel] AdvReac Swelling Verified 07/07/20 11:36 rivaroxaban [From Xarelto] AdvReac Nausea Verified 07/07/20 11:36 warfarin sodium AdvReac Nausea Verified 07/07/20 11:36 [From Coumadin] Social History Smoking Status: Current every day smoker ROS Constitutional Constitutional: Denies systems reviewed and no addt'l complaints, except as documented, as per HPI, anorexia, body ache(s), change in weight, chills, daytime sleepiness, difficulty sleeping, excessive sweating, fatigue, fever(s), frequent falls, headache(s), increased appetite, lethargy, malaise, night sweats, poor appetite, snoring, stops breathing during sleep, weakness, weight gain, weight loss or other Eyes Eyes: Denies systems reviewed and no addt'l complaints, except as documented, as per HPI, none, acute decrease in peripheral vision, blindness, blind spots, bloody eye, blurry vision, burning, change in eye color, change in vision, decreased night vision, diplopia, discharge from eye(s), discongugate gaze, double vision, dry eyes, erythema, excessive blinking, exophthalmos, eye pain, floaters, foreign body, halo effect, irritation, itchy eyes, loss of central vision, loss of peripheral vision, loss of vision, miosis, mydriasis, numbness, nystagmus, other visual disturbances, periorbital itching, photophobia, ptosis, puffy eyes, requires corrective lenses, seeing flashes, spots in vision, sunken eyes, tearing, tunnel vision or other ENT HEENT: Denies systems reviewed and no addt'l complaints, except as documented, as per HPI, none, abnormal hearing, bleeding gums, change in voice, dental pain, disequillibrium, dizziness, dry mouth, dysphagia, ear discharge, ear pain, epistaxis, facial pain, foreign body in nose, halitosis, headache(s), hearing loss, hoarseness, lip swelling, loss taste/smell, mouth lesions, mouth pain, mucositis, nasal congestion, nasal discharge, nasal obstruction, nasal trauma, neck mass, neck pain, nose pain, odynophagia, otalgia, post nasal drip, rhinorrhea, sinus pain, sinus pressure, sore throat, throat swelling, tinnitus, tongue swelling, vertigo or other Cardiovascular Cardiovascular: Denies systems reviewed and no addt'l complaints, except as documented, as per HPI, none, abdominal bloating, abdominal edema, abdominal pain, arrhythmia on telemetry, bluish discoloration of hand/feet, chest pain, chest pain at rest, chest pain with activity, claudication, clubbing, cold extremities, cyanosis, diaphoresis, dizziness, dyspnea, dyspnea at rest, dyspnea on exertion, easily tiring during activity, edema, erythema on extremities, fatigue, flutter in chest, hypertension, irregular heart rhythm, leg edema, leg ulcers, lightheadedness, nausea, numbness in extremities, orthopnea, orthostatic symptoms, pale cain skin, palpitations, paroxysmal nocturnal dyspnea, pedal edema, periorbital swelling, pounding heartbeat, racing heartbeat, radiating jaw, neck or arm pain, rapid heart rate, slow heart rate, syncope, tachypnea, vomiting, weakness in extremities, weight gain or other Respiratory/Chest Respiratory/Chest: Denies systems reviewed and no addt'l complaints, except as documented, as per HPI, none, change in mental status, change in phlegm color, chest congestion, chest tightness, cough, difficulty clearing secretions, dry cough, dusky skin, dyspnea, dyspnea on exertion, excessive phlegm production, hemoptysis, hoarseness, inability to speak, mouth breathing, nail bed cyanosis, non-rest sleep EDS, pain on inspiration, pain with cough, pale skin, yair-oral cyanosis, portable oxygen @ home, productive cough, red skin, restlessness, shortness of breath at rest, shortness of breath with exertion, snoring, stridor, tachypnea, wheezing, witnessed apneas, breast mass, breast pain, breast skin changes, breast swelling, change in breast shape, nipple discharge or other Gastrointestinal Gastrointestinal: Denies systems reviewed and no addt'l complaints, except as documented, as per HPI, none, abdominal pain, anorexia, belching, bloating, change in bowel habits, change in stool character, chewing difficulty, coffee ground emesis, constipation, cramping, diarrhea, dry heaves, dyspepsia, dysphagia, early satiety, excessive flatus, fecal incontinence, heartburn, hematemesis, hematochezia, hemorrhoids, loose stools, melena, nausea, odynophagia, rectal bleeding, taste impaired, tenesmus, vomiting, weight changes or other Genitourinary Genitourinary: Denies systems reviewed and no addt'l complaints, except as documented, as per HPI, none, abdominal discomfort, anuria, burning urination, change in libido, change in urinary stream, contractions, difficulty urinating, difficulty with ejaculations, dribbling, dysuria, erectile dysfunction, external genitalia discoloration, movement, flank pain, genital bruising, genital lesions, genital pain, hematospermia, hematuria, itching, low back pain, nocturia, oliguria, painful ejaculations, penile discharge, penile swelling, polyuria, post void dribbling, scrotal pain, scrotal swelling, testicular mass, testicular swelling, undescended testicles, urinary frequency, urinary hesitancy, urinary incontinence, urinary urgency or other Musculoskeletal Musculoskeletal: Denies systems reviewed and no addt'l complaints, except as documented, as per HPI, none, abnormal gait, arthralgias, atrophy, back pain, deformity, difficulty walking, extremity pain, joint pain, joint stiffness, joint swelling, limited range of motion, loss of height, muscle cramps, muscle spasms, muscle weakness, myalgias, neck pain, numbness, radiating pain into limb, stiffness, tingling, tremors or other Integumentary Integumentary: Reports non-healing lesions and wounds Neurologic Neurologic: Denies systems reviewed and no addt'l complaints, except as documented, as per HPI, none, abnormal gait, abnormal hearing, abnormal movements, abnormal speech, behavior changes, burning sensations, confusion, convulsions, disequilibrium, dizziness, focal weakness, frequent falls, headache(s), lack of coordination, loss of vision, memory loss, numbness, other visual disturbances, paresthesias, radicular pain, restless legs, seizure-like activity, seizures, sensory deficit, syncope, tingling, tremor(s), vertigo, weakness or other Psychiatric Psychiatric: Denies systems reviewed and no addt'l complaints, except as documented, as per HPI, none, abnormal sleep pattern, anhedonia, anxiety, auditory hallucinations, behavioral changes, change in appetite, change in libido, cognitive impairment, confusion, depression, difficulty concentrating, hallucinations, homicidal ideation, hopelessness, irritability, memory loss, mood swings, panic attacks, paranoia, suicidal ideation, suicidal thoughts, tactile hallucinations, visual hallucinations or other Endocrine Endocrinology: Denies systems reviewed and no addt'l complaints, except as documented, as per HPI, none, change in body appearance, change in libido, cold intolerance, deepening of the voice, excessive sweating, fatigue, flushing, heat intolerance, increase in ring/shoe/hat size, palpitations, polydipsia, polyphagia, polyuria or other Hematologic/Lymphatic Hematologic/Lymphatic: Denies systems reviewed and no addt'l complaints, except as documented, as per HPI, none, anemia, easy bleeding, easy bruising, lymphadenopathy or other Allergic/Immunologic Allergic/Immunologic: Denies systems reviewed and no addt'l complaints, except as documented, as per HPI, none, GI upset w/certain foods, itchy eyes, lip swelling, seasonal rhinorrhea, rhinitis, throat swelling, tongue swelling, hives, urticaria, eczemia, wheezing, asthma or other Vital Signs Vital Signs Vital Signs: 11/28/20 08:02 Temperature 97.5 F L Temperature Source Temporal Pulse Rate 100 Respiratory Rate 20 H Blood Pressure 199/94 H Blood Pressure Mean 129 Blood Pressure Source Monitor Blood Pressure Position Sitting Blood Pressure Location Right Arm Oxygen Delivery Method Room Air Physical Exam Const oriented x3 General Appearance: cooperative, comfortable and other obese Orientation / Consciousness: awake, oriented to person and oriented to place Exam Limitations: no limitations Nutritional Appearance: obese morbidly obese HEENT normocephalic Head and Scalp: normal to inspection Face and Sinus: normal facial exam Nose: external nose normal General Ear: hearing grossly impaired External Ear: external ears normal Eyes General Eye: normal appearance of both eyes Neck full ROM General: normal visual inspection Chest inspection of chest normal Resp normal respiratory effort Effort and Inspection: able to speak in complete sentences Auscultation: clear to auscultation bilaterally Cardio regular rate, regular rhythm and S1 normal heart sound Palpation: normal PMI Rate: regular rate Rhythm: regular rhythm GI Inspection: abdominal aortic bruit Auscultation: normoactive bowel sounds Palpation: soft Rectal Exam: visual inspection normal, lesions and other Other Details: healing erythematous area with no open area no CVA tenderness Testes: Negative for testicular swelling or testicular mass Back/Spine no CVA tenderness General Back: CVA tenderness Cervical Spine: cervical ROM normal Lumbar Spine / Lower Back: normal to inspection Pelvis: buttocks abnormal Skin No no wounds Rashes: no rashes Wounds: wounds noted size Size: 1.5x6.5x0.1 healing , margins well approximated, no odor and No surrounding erythema Assessment and Debridement #1 right buttocks/perineum: Post-Debridement Measurements/Treatment - Nurse 1 - General Ulcer Assessment Start: 11/28/20 08:02 Freq: Status: Active Protocol: GUCCI Activity Type Activity Date Activity User E-Sign Co-Sign Detail Recorded Client Recorded Date Recorded By Document 11/28/20 08:02 [facility] [id number] 11/28/20 08:08 [facility] 11/28/20 08:02 - Today's Visit Information Type of service Follow-up Visit (Physician/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 TECHNICIAN APPRENTICE ) Arrival Mode Ambulatory,Cane Transfer Assistance None Patient Identification Verified (Name & Yes ) Height and Weight Body Mass Index (BMI) 58.0 BMI Classification Obese Vital Signs Temperature (97.8 F-99.1 F) 97.5 F L Temperature Source Temporal Pulse Rate (60-100 beats/min) 100 Respiratory Rate (12-18 breaths/min) 20 H Respiratory rate source Observation Oxygen Delivery Method Room Air Blood Pressure (90/60-120/80 mm Hg) 199/94 H Blood Pressure Mean (mm Hg) 129 Source Monitor Position Sitting Blood Pressure Location Right Arm History Since Last Visit- (Skip if this is Patient's initial visit) Have you changed medications since your No last visit? Any new allergies or adverse reactions No Had a fall/change in ADL's that may No increase risk of falls Signs or symptoms of abuse and/or No neglect since last visit Have you been in the hospital since your No last visit? Has dressing in place as prescribed No Has compression in place as prescribed N/A Has offloadiing in place as prescribed N/A Experienced any changes in pain level or No management Left Footwear Regular Shoe Right Footwear Regular Shoe Pain Scale: 0-10 Numeric Is Patient Pain Free? Yes WC - Nurse 2 - General Ulcer CM Notes Start: 11/28/20 08:02 Freq: Status: Active Protocol: Activity Type Activity Date Activity User E-Sign Co-Sign Detail Recorded Client Recorded Date Recorded By Document 11/28/20 08:25 MW [id number] 11/28/20 08:30 MW 11/28/20 08:25 Wound Center Nurse 2 #1 right buttocks/perineum -Time 08:26 -Correct Patient Yes -Correct Side, Site, Position Yes -Correct Procedure Yes -Type of Procedure Debridement -Clinical Debridement Epidermis / Dermis -Tissue Removed Epidermis -Post Debridement (cm) - Length 1.5 -Post Debridement (cm) - Width 7.0 -Post Debridement (cm) - Depth 1 -Total Square (Post) (cm) 10.50 -Area of Debridement (cm) - Length 1.5 -Area of Debridement (cm) - Width 7.0 -Total Square (Area) (cm) 10.50 -Tunneling No -Undermining/Tunneling No -Circular Undermining No -Wound/Ulcer Outcome Not Healed -Ulcer Cleansing Rinsed/ Irrigated with Saline -Foul Odor after Cleansing No -Bioengineered Tissue No -Bleeding Controlled with Pressure -Offloading No -Treatment Response Procedure Tolerated Well -Debridement - Open, 1st 20sq cm Yes Pain Scale: 0-10 Numeric Is Patient Pain Free? Yes Laterality: Not Applicable Type of Debridement: Selective debridement Anesthesia Used: 5% Lidocaine Gel Depth: Down to and including healthy tissue Percentage of Wound Debrided: 100 Instrument Used: - Tissue Removed: fibrin Severity: Limited To Skin Breakdown Amt of Bleeding w/Debridement: None Patient Tolerated Procedure: Patient tolerated procedure well Assessment & Plan Assessment/Plan (1) History of Chanel's gangrene: Status: Chronic Code(s): Z87.438 - Personal history of other diseases of male genital organs (2) Ulcer of scrotum: Status: Resolved Code(s): N50.89 - Other specified disorders of the male genital organs (3) Type 2 diabetes mellitus: Status: Chronic Code(s): E11.9 - Type 2 diabetes mellitus without complications (4) Super obesity: Status: Chronic Code(s): E66.9 - Obesity, unspecified Office Visits / Consults: [id number] OV L3 New
== END 2020-11-30 23:59 ==
LOC: WC 08:00
PROVIDERS: PCP Family Medicine; Visit Provider Nurse Practitioner
DX: N50.89 Other specified disorders of the male genital organs (principal); N49.3 Fournier gangrene; E11.9 Type 2 diabetes mellitus without complications; Z87.438 Personal history of other diseases of male genital organs; E66.01 Morbid (severe) obesity due to excess calories; F17.200 Nicotine dependence, unspecified, uncomplicated; Z79.01 Long term (current) use of anticoagulants; Z79.52 Long term (current) use of systemic steroids
CPT/HCPCS: 97597; 99213; G0463

== ENCOUNTER 2021-03-22 16:18 | Inpatient (IN) | payer MEDICAID, SELFPAY ==
[2021-03-22 16:18] VITALS: BP 178/87; PULSE 105; RESP 24; TEMP 36.6; O2SAT 100; BMI 56.3
--- NOTE | 2021-03-22 16:58 | EKG12_ITS ---
Test Reason : CP Blood Pressure : / mmHG Vent. Rate : 089 BPM Atrial Rate : 089 BPM P-R Int : 182 ms QRS Dur : 136 ms QT Int : 400 ms P-R-T Axes : 054 -55 027 degrees QTc Int : 486 ms Normal sinus rhythm Right bundle branch block Left anterior fascicular block Bifascicular block Abnormal ECG Confirmed by ELEONORA MEZA, TRISTON ([id number]), greeting card editor ALF RUCKER ([id number]) on 03/25/2021 1:35:19 PM Referred By: PL Confirmed By:BELLA CREWS MD
--- NOTE | 2021-03-22 16:58 | RAD_ITS ---
STUDY: X-RAY - LEFT HUMERUS REASON FOR EXAM: Male, 50 years old. pain TECHNIQUE: 4 view(s) of the humerus. COMPARISON: 10/27/2018. FINDINGS: No evidence for acute fracture. No lytic destructive changes.. Sclerotic density is seen within the humeral neck which may be consistent with enchondroma or bone infarct. There is no demonstrated soft tissue abnormality. Findings are not changed since prior exam RAD/Humerus min 2 Views IMPRESSION: No acute fracture or other significant bony pathology unchanged since prior study.. Electronically Signed: Rashawn Brenner MD at 18:02 EDT , Service support ,
--- NOTE | 2021-03-22 17:07 | EX.ED.DYSGE1 ---
HPI History of Present Illness Chief Complaint: Numb/Ting Informant: patient Narrative Narrative: Patient presents with sharp and tingling burning and occasionally painful sensation to the back of his left arm. He states it goes from the inside of the elbow up the back of his arm across the shoulder to the medial portion of the scapula. If he pushes himself up it tends to get worse. He denies any weakness. He has chronic neuropathy and numbness tingling of his hand but this is no different than normal. He denies chest pain. He denies any dyspnea. He does have COPD, is a smoker and on 4 L but is not dyspneic or coughing. He has not had fevers or chills. Using the arm makes it worse and rest makes it better. 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 Because of this they tell him to lay on his left side. He uses his left arm all the time to push himself up out of a chair and other areas. He thinks he may have hurt it doing this. However he did not fall on it. Patient is on Pradaxa because of a history of prior DVT. He had allergies to Coumadin and Xarelto. [facility] Home Medications levothyroxine 150 mcg PO DAILY 06/22/13 [History Last Taken 10/29/16] diazepam [Valium] 10 mg PO Q6H PRN 03/03/16 [History Last Taken 10/29/16] doxycycline hyclate 100 mg PO BID #20 capsule 04/14/17 [Rx Last Taken Unknown] prednisone 20 mg PO DAILY@0800 04/14/17 [History Last Taken Unknown] albuterol sulfate 2 puff INHALATION Q6H PRN PRN 07/07/20 [History Last Taken Unknown] ascorbic acid (vitamin C) 500 mg PO BID 07/07/20 [History Last Taken Unknown] bumetanide 2 mg PO DAILY 07/07/20 [History Last Taken Unknown] cyclobenzaprine 10 mg PO TID PRN PRN 07/07/20 [History Last Taken Unknown] ergocalciferol (vitamin D2) 50,000 unit PO Q7D 07/07/20 [History Last Taken Unknown] ferrous sulfate 325 mg PO DAILY 07/07/20 [History Last Taken Unknown] gabapentin 100 mg PO QHS 07/07/20 [History Last Taken Unknown] losartan 25 mg PO DAILY 07/07/20 [History Last Taken Unknown] omeprazole 20 mg PO BID 07/07/20 [History Last Taken Unknown] oxycodone 5 mg PO Q6H PRN PRN 07/07/20 [History Last Taken Unknown] rivaroxaban 20 mg PO DAILY 07/07/20 [History Last Taken Unknown] zinc sulfate 220 mg PO DAILY 07/07/20 [History Last Taken Unknown] zolpidem 5 mg PO QHS PRN 07/07/20 [History Last Taken Unknown] losartan 100 mg PO DAILY #30 tab 09/04/20 [Rx Last Taken Unknown] Allergy/AdvReac Type Severity Reaction Status Date / Time Penicillins Allergy Hives Verified 03/22/21 16:24 Sulfa (Sulfonamide Allergy Hives Verified 03/22/21 16:24 Antibiotics) etanercept [From Enbrel] AdvReac Swelling Verified 03/22/21 16:24 rivaroxaban [From Xarelto] AdvReac Nausea Verified 03/22/21 16:24 warfarin sodium AdvReac Nausea Verified 03/22/21 16:24 [From Coumadin] Social History Smoking Status: Current every day smoker tobacco type: cigarettes ROS ROS ED Constitutional Constitutional ED: Denies chills, fever(s) or weight loss Eyes Eyes: Denies blurry vision or change in vision ENT ENT ED: Denies rhinorrhea or sore throat Cardiovascular Cardiovascular: Denies chest pain, palpitations or racing heartbeat Respiratory/Chest Respiratory/Chest: Denies cough or dyspnea Gastrointestinal Gastrointestinal: Denies abdominal pain, nausea or vomiting Genitourinary Genitourinary ED: Denies dysuria Musculoskeletal Musculoskeletal: Reports other Details: See history of present illness. ; Denies back pain or neck pain Integumentary Denies abscess or rash Neurologic Neurologic: Reports paresthesias and other Details: See history of present illness ; Denies headache(s) or weakness Endocrine Endocrinology: Reports other Details: Patient does have diabetes. However, he states that he got his A1c down to about 6.3 and his glucose is running 92-114. ; Denies polydipsia or polyuria EXAM Physical Exam Const Vital Signs: 03/22/21 16:18 03/22/21 18:18 Temperature 97.9 F Temperature Source Oral Pulse Rate 105 H 83 Respiratory Rate 24 H 18 Blood Pressure 178/87 H 151/71 H Blood Pressure Mean 117 97 Pulse Ox 100 98 Oxygen Delivery Method Nasal Cannula Oxygen Flow Rate (L/min) 4 Positive well nourished, well developed and obese General Appearance ED: well developed and NAD; Negative for cyanotic or diaphoretic Nutritional Appearance: obese HEENT Reports moist mucous membranes Negative for trauma or tenderness Eyes EOMs intact bilaterally Neck no JVD Neck Narrative: No pain with palpation or notable range of motion. Patient states his neck does click or crack when he moves in certain directions. Chest Wall inspection of chest normal and palpation of chest normal Resp normal respiratory effort and clear to auscultation bilaterally Resp Narrative: Lungs are clear. There is no wheezing. His saturations are 97 to 100% on his 4 L. Cardio regular rate GI normal to inspection, nondistended, normoactive bowel sounds and non-tender Palpation: soft Narrative: I looked at the prior surgical site on his right inguinal area and it wraps around toward his buttock. Its not red. Is not draining at this time. Its not tender. Back/Spine no CVA tenderness Extremity normal to inspection Extremity Narrative: There is no tenderness or rash or swelling noted. He does have some tenderness more toward the medial border of the scapula. Distal pulses are intact. No contusions. Neuro oriented x3 Sensorium / Orientation: alert Psych Psych Narrative: Patient is a bit anxious. He did take his Valium before coming in. He forgot to get his NicoDerm which I offered here. Mood & Affect: anxious Skin no rashes or lesions noted and no wounds MDM MDM MDM Narrative Medical decision making narrative: Patient's initial work-up shows an elevated white count. I talked to him again. He denies any symptoms at all of a fever. He has no infectious symptoms. He has a chronic COPD cough that is unchanged. No sputum. No urinary symptoms. I had already checked his groin and is not showing problems. He does have a history of high white count that it normally runs closer to 14 rather than 19. His troponin did come back slightly high at 134. I talked to him about coming in the hospital. He states he cannot do that. His symptoms are resolved. He states he is living with his mother and there is things he has to do and he cannot come in the hospital today. He reports a prior stress test but has been 5 or 6 years ago. I was able to convince him finally to stay to at least get a repeat troponin level. Patient's second troponin is more than doubled from his first. I went talk to the patient. He states he is not having any symptoms. If he moves his left arm forward he gets tingling in sore sensation across the back of his arm. It is very reproducible on exam. However, I explained to this patient that he has multiple risk factors for heart disease with atypical scapular pain and rising troponins. This represents an non-ST segment elevation SC. This puts him at increased risk of and rhythm disturbances. I have again strongly encouraged him to come in. He does not want to come in. He states he feels well. He did agree to call 911 if he has symptoms. He agreed at least to take a baby aspirin. I explained that this is safe when he is taking Pradaxa. I have encouraged him to have freedom to come back at any time even if he just changes his mind. I think the right place to be is in the hospital. I think he needs further work-up. I think his lab work does represent true disease. He chooses to leave AGAINST MEDICAL ADVICE. He is able to repeat the information back to me. He clearly has a understanding and capacity to make his own decisions. Lab Data Labs: Laboratory Results - last 24 hr 03/22/21 03/22/21 03/22/21 16:27 16:27 18:50 WBC 19.6 H RBC 5.20 Hgb 11.8 L Hct 42.5 MCV 81.7 MCH 22.7 L MCHC 27.8 L RDW Std Deviation 47.3 H RDW Coeff of Kris 15.9 H Plt Count 421 MPV 10.0 Immature Gran % (Auto) 0.600 Neut % (Auto) 75.2 H Lymph % (Auto) 20.0 [place] % (Auto) 3.5 Eos % (Auto) 0.4 Baso % (Auto) 0.3 Absolute Neuts (auto) 14.7 H Absolute Lymphs (auto) 3.92 Nucleated RBC % 0 Sodium 138 Potassium 4.1 Chloride 103 Carbon Dioxide 29.0 Anion Gap 6 BUN 11 Creatinine 1.15 Estim Creat Clear Calc 85.88 Est GFR (MDRD) Af Amer 86 Est GFR (MDRD) Non-Af 71 BUN/Creatinine Ratio 9.6 L Glucose 167 H Calcium 9.2 Troponin I High Sens 134 H* 372 H* Radiography Diagnostic Testing: Radiology Impression Humerus X-Ray 03/22/21 16:58 IMPRESSION: No acute fracture or other significant bony pathology unchanged since prior study.. Electronically Signed: Rashawn Brenner MD at 18:02 EDT , Service support , Chest X-Ray 03/22/21 17:10 IMPRESSION: Chronic interstitial and old granulomatous disease. No acute cardiopulmonary pathology. Electronically Signed: Rashawn Brenner MD at 18:00 EDT , Service support , Discharge Plan Triage Chief Complaint: Numb/Ting ED Provider: Daryl Angel Dx/Rx/DC Orders Clinical Impression: Pain in scapula, Non-ST elevation SC (NSTEMI), Left against medical advice Instructions: Heart Attack Dc Prescriptions: No Action levothyroxine 100 MCG tablet 150 mcg PO DAILY RF: 0 diazepam [Valium] 10 MG tablet 10 mg PO Q6H PRN (Reason: Anxiety) RF: 0 prednisone 20 MG tablet 20 mg PO DAILY@0800 RF: 0 doxycycline hyclate 100 MG capsule 100 mg PO BID Qty: 20 RF: 0 cyclobenzaprine 10 MG tablet 10 mg PO TID PRN PRN (Reason: Pain 1-10 Or Fever) RF: 0 bumetanide 2 MG tablet 2 mg PO DAILY RF: 0 zinc sulfate 220 MG tablet 220 mg PO DAILY RF: 0 ferrous sulfate 325 MG tablet 325 mg PO DAILY RF: 0 losartan 25 MG tablet 25 mg PO DAILY RF: 0 omeprazole 20 MG capsule,delayed release(DR/EC) 20 mg PO BID RF: 0 zolpidem 5 MG tablet 5 mg PO QHS PRN (Reason: Sleep) RF: 0 gabapentin 100 MG capsule 100 mg PO QHS RF: 0 ergocalciferol (vitamin D2) 50,000 UNIT capsule 50,000 unit PO Q7D RF: 0 albuterol sulfate 1 INHALER inhaler 2 puff INHALATION Q6H PRN PRN (Reason: Sob &/Or Wheezing) RF: 0 oxycodone 5 MG tablet 5 mg PO Q6H PRN PRN (Reason: Pain 1-10 Or Fever) RF: 0 rivaroxaban 20 MG tablet 20 mg PO DAILY RF: 0 ascorbic acid (vitamin C) 500 MG capsule 500 mg PO BID RF: 0 losartan 100 MG tablet 100 mg PO DAILY Qty: 30 RF: 0 Primary Care Provider: Ida Norris Referrals: Ida Norris DO [Primary Care Provider] - Angie Levine MD [STAFF PHYSICIAN] - As soon as possible Activity Restrictions/Additional Instructions: Please return at any time. Please feel free to call 911. Please take one baby aspirin daily. Call cardiology in follow-up as soon as possible. Disposition Disposition: Against Medical Advice
--- NOTE | 2021-03-22 17:10 | RAD_ITS ---
STUDY: X-RAY CHEST REASON FOR EXAM: Male, 50 years old. scaupalar pain TECHNIQUE: AP portable COMPARISON: 06/27/2020. FINDINGS: Bilateral perihilar interstitial thickening. Calcified granuloma in the right upper lobe.. There is no demonstrated pleural abnormality. Heart is mildly enlarged.. Normal mediastinum and albin. Normal visualized pulmonary arteries. Normal visualized aortic arch and descending thoracic aorta. Normal visualized thoracic spine. Normal visualized ribs, clavicles, and shoulders. There is no demonstrated abnormality of the visualized soft tissue structures of the upper abdomen. Findings are similar to that seen on prior exam RAD/Chest 1 View (Portable) IMPRESSION: Chronic interstitial and old granulomatous disease. No acute cardiopulmonary pathology. Electronically Signed: Rashawn Brenner MD at 18:00 EDT , Service support ,
[2021-03-22] MEDS: oxyCODONE 5 MG Tablet PO (17:24)
[2021-03-22 17:33] LABS: Anion Gap 6 (5-15); BUN 11 mg/dL (7-18); BUN/Creat Ratio 9.6 RATIO (10-20); Calcium,Total 9.2 mg/dL (8.5-10.1); Chloride 103 mmol/L (98-107); Creatinine, Serum 1.15 mg/dL (0.70-1.30); EST Glomerular Filtration Rate 71 mL/min (>60); Est Glom Filt Rate - Afr Amer 86 mL/min (>60); Estimated Creatinine Clearance 85.88 ml/min; Potassium 4.1 mmol/L (3.5-5.1); Sodium Level 138 mmol/L (136-145)
[2021-03-22 17:34] LABS: Absolute Lymphocyte Count 3.92 X10^3/uL (0.83-4.51); Absolute Neutrophil Count 14.7 X10^3/uL (2.0-7.7); Basophil# 0.06 X10^3/uL; Basophil% 0.3 % (0-1); Eosinophil# 0.07 X10^3/uL; Eosinophils% 0.4 % (0-5); Hematocrit 42.5 % (40-54); Hemoglobin 11.8 g/dL (13.0-16.5); Lymphocyte # 3.92 X10^3/ul (0.83-4.51); Mean Corp Hgb Conc 27.8 g/dL (32-36); Mean Corpuscular Hgb 22.7 pg (27.0-32.0); Mean Corpuscular Volume 81.7 fL (80-94); Monocyte# 0.68 X10^3/uL; Monocyte% 3.5 % (0-10); NRBC Flagged by Analyzer 0 % (0-5); Neutrophil # 14.73 X10^3/uL (2.7-7.7); Neutrophil % 75.2 % (47-70); Platelet Count 421 K/mm3 (150-450); RBC Distribution Width CV 15.9 % (11.6-14.6); RBC Distribution Width SD 47.3 fl (35.1-43.9); White Blood Count 19.6 K/mm3 (4.4-11.0)
[2021-03-22 17:36] LABS: Glucose 167 mg/dL (74-106)
[2021-03-22 17:40] LABS: Troponin-I HS 134 pg/mL (3.0-78.0)
[2021-03-22 18:18] VITALS: BP 151/71; PULSE 83; RESP 18; O2SAT 98
[2021-03-22 19:21] LABS: Troponin-I HS 372 pg/mL (3.0-78.0)
--- NOTE | 2021-03-22 19:25 | EKG12_ITS ---
Test Reason : DYSRHYTHMIA Blood Pressure : / mmHG Vent. Rate : 082 BPM Atrial Rate : 082 BPM P-R Int : 184 ms QRS Dur : 134 ms QT Int : 410 ms P-R-T Axes : 062 -52 038 degrees QTc Int : 479 ms Normal sinus rhythm Right bundle branch block Left anterior fascicular block Bifascicular block Abnormal ECG Confirmed by ELEONORA MEZA, TRISTON ([id number]), writer editor ALF RUCKER ([id number]) on 03/25/2021 1:35:33 PM Referred By: PL Confirmed By:BELLA CREWS MD
[2021-03-22] MEDS: Aspirin 81 MG TAB.CHEW PO (20:35)
[2021-03-22 21:29] VITALS: BP 154/127; PULSE 85; RESP 18; TEMP 36.5; O2SAT 96
--- NOTE | 2021-03-22 21:35 | PCM.HP.STD ---
[facility] - General General Date of Admission: 03/22/21 HPI Narrative CAYLA GRANADOS, is a 50 M with a significant history of hypertension; type 2 diabetes; rheumatoid arthritis; obesity; fibromyalgia; anxiety disorder with panic attacks who presents to the emergency department with who presents left arm pain. His arm pain started from his elbow to his shoulder and and 8 radiated to his scapula. He described the pain as deep and ripping. The pain occurred multiple times and it is progressively getting worse. He denies any ameliorating or aggravating factors to the pain. He denies any associated nausea or vomiting. He was given pain medication at the emergency department and that helped with his pain. [facility] Medical History Anxiety Chest pain Chronic pain DVT (deep venous thrombosis) GERD (gastroesophageal reflux disease) Kidney stones On home oxygen therapy Sleep apnea Smoker Home Medications levothyroxine 300 mcg PO DAILY 06/22/13 [History Last Taken 03/22/21 09:00] diazepam [Valium] 10 mg PO Q6H PRN 03/03/16 [History Last Taken 03/22/21 18:00] prednisone 20 mg PO DAILY@0800 04/14/17 [History Last Taken 03/22/21 09:00] albuterol sulfate 2 puff INHALATION Q6H PRN PRN 07/07/20 [History Last Taken 03/22/21 09:00] ascorbic acid (vitamin C) 500 mg PO BID 07/07/20 [History Last Taken Unknown] bumetanide 2 mg PO DAILY 07/07/20 [History Last Taken Unknown] cyclobenzaprine 10 mg PO TID PRN PRN 07/07/20 [History Last Taken Unknown] ergocalciferol (vitamin D2) 50,000 unit PO Q7D 07/07/20 [History Last Taken 03/20/21 09:00] ferrous sulfate 325 mg PO DAILY 07/07/20 [History Last Taken Unknown] gabapentin 100 mg PO QHS 07/07/20 [History Last Taken 03/21/21 22:00] losartan 10 mg PO BID 07/07/20 [History Last Taken 03/20/21 22:00] omeprazole 20 mg PO BID 07/07/20 [History Last Taken 03/22/21 09:00] oxycodone 5 mg PO Q6H PRN PRN 07/07/20 [History Last Taken 03/22/21 18:00] rivaroxaban 20 mg PO DAILY 07/07/20 [History Last Taken Unknown] zinc sulfate 220 mg PO DAILY 07/07/20 [History Last Taken Unknown] zolpidem 5 mg PO QHS PRN 07/07/20 [History Last Taken 03/21/21 22:00] losartan 100 mg PO DAILY #30 tab 09/04/20 [Rx Last Taken Unknown] dabigatran etexilate [Pradaxa] 300 mg PO DAILY 03/22/21 [History Last Taken 03/21/21 09:00] dabigatran etexilate [Pradaxa] mg PO 03/22/21 [History Last Taken Unknown] doxycycline hyclate 100 mg PO BID 03/22/21 [History Last Taken 03/22/21 09:00] Allergy/AdvReac Type Severity Reaction Status Date / Time Penicillins Allergy Hives Verified 03/22/21 16:24 Sulfa (Sulfonamide Allergy Hives Verified 03/22/21 16:24 Antibiotics) etanercept [From Enbrel] AdvReac Swelling Verified 03/22/21 16:24 rivaroxaban [From Xarelto] AdvReac Nausea Verified 03/22/21 16:24 warfarin sodium AdvReac Nausea Verified 03/22/21 16:24 [From Coumadin] Family History Other Cancer Heart disease Kidney disease no surgical history (except scrotal surgery) Social History Smoking Status: Heavy Smoker (>10/day) ROS ROS Narrative Constitutional: Denies anorexia and change in weight Eyes: Denies blurry vision, change in eye color, change in vision, discharge from eye(s), double vision, erythema, eye pain, loss of vision or other HEENT: Denies abnormal hearing, dysphagia, ear pain, epistaxis, headache(s), hearing loss, nasal congestion, nasal discharge, post nasal drip, sinus pressure, sore throat or other Cardiovascular: Denies chest pain. Denies dyspnea on exertion, orthopnea and paroxysmal nocturnal dyspnea Respiratory/Chest: Denies cough, excessive phlegm production, shortness of breath with exertion and wheezing Gastrointestinal: Denies abdominal pain, coffee ground emesis, constipation, diarrhea, dyspepsia, hematemesis, hematochezia, loose stools, melena, nausea, vomiting or other Genitourinary: Denies burning urination, difficulty urinating, dysuria, hematuria, nocturia, urinary frequency, urinary hesitancy, urinary incontinence, urinary urgency or other Musculoskeletal: Left arm pain and left shoulder pain. Neurologic: Denies abnormal gait, abnormal speech, confusion, disequilibrium, dizziness, focal weakness, headache(s), numbness, paresthesias, seizure-like activity, seizures, syncope, tingling, tremor(s) or other Psychiatric: Reports anxiety, depression. Denies homicidal ideation, suicidal ideation or other Endocrinology: Denies change in body appearance, cold intolerance, excessive sweating, heat intolerance, polydipsia, polyuria or other Hematologic/Lymphatic: Denies anemia, easy bleeding, easy bruising, lymphadenopathy or other Integumentary: Denies rashes Allergic/Immunologic: Denies rhinitis, hives, eczema, asthma or other Vital Signs Vital Signs Vital Signs: 03/22/21 16:18 03/22/21 18:18 03/22/21 21:29 Temperature 97.9 F 97.7 F L Temperature Source Oral Temporal Pulse Rate 105 H 83 85 Respiratory Rate 24 H 18 18 Blood Pressure 178/87 H 151/71 H 154/127 H Blood Pressure Mean 117 97 136 Pulse Ox 100 98 96 Oxygen Delivery Method Nasal Cannula Nasal Cannula Oxygen Flow Rate (L/min) 4 4 Weight Weight: 193.7 kg Body Mass Index (BMI) 56.3 Physical Exam Narrative Physical exam: General: Obese middle-aged man. Head: Normocephalic, atraumatic, no tenderness Eyes: PERRLA, EOMI ENT, no trauma, moist mucous membranes, no rhinorrhea Neck: Nontender, full range of motion, no spinal tenderness, deformities, step-off CVS: Regular rate and rhythm Respiratory no acute distress, clear to auscultation bilaterally, chest wall nontender, no wheezing Abdomen: Soft, nontender, nondistended, normal bowel sounds, no masses : Deferred Back: Nontender, no CVA tenderness, no midline spinal tenderness, deformities, step-offs Extremities: Nontender full range of motion, no trauma Skin: Normal color, no trauma, abrasions Neuro: Alert, oriented, cranial nerves II through XII grossly intact. Psychiatry: Anxious. Results Lab / Micro Data Result Diagrams: 03/22/21 16:27 03/22/21 16:27 Labs: Laboratory Results - last 24 hr 03/22/21 16:27: WBC 19.6 H, RBC 5.20, Hgb 11.8 L, Hct 42.5, MCV 81.7, MCH 22.7 L, MCHC 27.8 L, RDW Std Deviation 47.3 H, RDW Coeff of Kris 15.9 H, Plt Count 421, MPV 10.0, Immature Gran % (Auto) 0.600, Neut % (Auto) 75.2 H, Lymph % (Auto) 20.0, [place] % (Auto) 3.5, Eos % (Auto) 0.4, Baso % (Auto) 0.3, Absolute Neuts (auto) 14.7 H, Absolute Lymphs (auto) 3.92, Nucleated RBC % 0 03/22/21 16:27: Sodium 138, Potassium 4.1, Chloride 103, Carbon Dioxide 29.0, Anion Gap 6, BUN 11, Creatinine 1.15, Estim Creat Clear Calc 85.88, Est GFR (MDRD) Af Amer 86, Est GFR (MDRD) Non-Af 71, BUN/Creatinine Ratio 9.6 L, Glucose 167 H, Calcium 9.2, Troponin I High Sens 134 H* 03/22/21 18:50: Troponin I High Sens 372 H* Radiology Impression Humerus X-Ray 03/22/21 16:58 IMPRESSION: No acute fracture or other significant bony pathology unchanged since prior study.. Electronically Signed: Rashawn Brenner MD at 18:02 EDT , Service support , Chest X-Ray 03/22/21 17:10 IMPRESSION: Chronic interstitial and old granulomatous disease. No acute cardiopulmonary pathology. Electronically Signed: Rashawn Brenner MD at 18:00 EDT , Service support , Assessment & Plan Assessment/Plan (1) Elevated troponin: PLAN: Elevated troponin Place on a monitored bed at progressive care unit Radiologist impression of chest x-ray: Chronic interstitial and old granulomatous disease. No acute cardiopulmonary pathology. Present chest x-ray and previous chest x-ray was independently visualized and I agree with radiologist interpretation. Actual EKG tracing was independently visualized. EKG tracing showed bifascicular block with no T wave or ST abnormalities, ASA 81 mg p.o. daily ordered SL NTG 0.4 mg prn as needed for chest pain ordered Morphine as needed for pain ordered We will check lipid panel. Initial high CT troponin and repeat was elevated. We will repeat higher than initial. Continue to trend high-sensitivity troponin. On home Pradaxa that he takes for DVT. Reportedly he has run out of Pradaxa and did not take on the day of presentation. Lovenox therapeutic dose x1 ordered. We will keep n.p.o. after midnight. Cardiology consult. Hypertension Blood pressure is not within goal Losartan continued. Trend blood pressure and adjust blood pressure medications. DVT prophylaxis: Not indicated since patient has been in therapeutic dose of Lovenox. Charges/Coding Visit Charges OBSV E&M: 68025 Initial observation care L3
[2021-03-22] MEDS: diazePAM 5 MG Tablet 10 MG PO (22:13)
[2021-03-22 22:14] VITALS: BP 108/87; PULSE 86; RESP 18; TEMP 36.1; O2SAT 98
--- NOTE | 2021-03-22 22:37 | EKG12_ITS ---
Test Reason : NON STEMI Blood Pressure : / mmHG Vent. Rate : 086 BPM Atrial Rate : 086 BPM P-R Int : 170 ms QRS Dur : 138 ms QT Int : 412 ms P-R-T Axes : 048 -63 046 degrees QTc Int : 493 ms Normal sinus rhythm Right bundle branch block Left anterior fascicular block Bifascicular block Abnormal ECG When compared with ECG of 22-MAR-2021 17:16, MANUAL COMPARISON REQUIRED, DATA IS UNCONFIRMED Confirmed by GODWIN MEZA, EDWARDO ([id number]), editor school photograph ALF RUCKER ([id number]) on 03/26/2021 8:05:25 AM Referred By: DR HAINES Confirmed By:EDWARDO CONNELLY MD
[2021-03-22 22:39] VITALS: PULSE 87; BMI 56.5
[2021-03-22 22:59] VITALS: BP 153/63; PULSE 82; RESP 16; TEMP 36.8; O2SAT 94
[2021-03-23] VITALS (9 sets, daily range): BP systolic 103–158; BP diastolic 60–88; PULSE 80–90; RESP 16–18; TEMP 36.4–36.9; O2SAT 94–99
[2021-03-23] MEDS: Atorvastatin Calcium 80 MG Tablet PO ×2 (00:24→21:10)
[2021-03-23] MEDS: Enoxaparin 100 MG/ML Syringe 190 MG SC (00:24)
[2021-03-23 01:10] LABS: Troponin-I HS 1234 pg/mL (3.0-78.0)
[2021-03-23 06:50] LABS: Anion Gap 2 (5-15); BUN 12 mg/dL (7-18); BUN/Creat Ratio 11.8 RATIO (10-20); Calcium,Total 8.5 mg/dL (8.5-10.1); Chloride 104 mmol/L (98-107); Cholesterol 173 mg/dL (200); Creatinine, Serum 1.02 mg/dL (0.70-1.30); EST Glomerular Filtration Rate 82 mL/min (>60); Est Glom Filt Rate - Afr Amer 99 mL/min (>60); Estimated Creatinine Clearance 96.83 ml/min; Glucose 83 mg/dL (74-106); High Density Lipoprotein 46 mg/dL; Potassium 3.9 mmol/L (3.5-5.1); Sodium Level 140 mmol/L (136-145); Triglycerides 102 mg/dL; Very Low Density Lipoprotein 20 mg/dL (5-40)
[2021-03-23 07:05] LABS: Troponin-I HS 1497 pg/mL (3.0-78.0)
[2021-03-23] MEDS: Aspirin E.C. 81 MG Tablet PO (09:39)
[2021-03-23] MEDS: 0.9% Saline Lock 10 ML Syringe IV (09:42)
--- NOTE | 2021-03-23 10:50 | NURSING ---
pandemic charting initiated 03/18/21 at 1900
[2021-03-23] MEDS: Losartan Potassium 100 MG Tablet PO (11:33)
[2021-03-23] MEDS: Pantoprazole Sodium 20 MG Tablet PO ×2 (11:34→21:12)
[2021-03-23] MEDS: Doxycycline 100 MG CAPSULE PO ×2 (11:34→21:10)
[2021-03-23] MEDS: Levothyroxine 150 MCG Tablet 300 MCG PO (11:35)
[2021-03-23] MEDS: diazePAM 5 MG Tablet 10 MG PO ×2 (11:37→21:25)
--- NOTE | 2021-03-23 12:20 | CASEMGMT ---
RN CM Face to Face with patient for initial transition planning/care coordination assessment. RN CM introduced self and role at [facility] [place]. Patient lying in bed, alert and oriented, mother at bedside. Patient willing to participate in assessment and is able to answer all questions appropriately. Care providers, pharmacy, and demographics verified. Patient wishes to discharge home, denies need for home health at this time. Patient states he has no further needs or concerns at this time. CM to follow for discharge planning needs that may arise. PCP: Jr Specialists: none Preferred Pharmacy: [facility] Insurance: [employer] DSP Prescription Benefit: yes Living Will/HPOA: none LNOK: mother Living Arrangements: Patient lives with mother in a mobile home with 4 steps and railing to enter the home. Transportation: self/mother DME/HHC: Patient states he has cane, walker, grab bars, cpap, nebulizer, and home oxygen at 4lpm at and PRN through [facility], also has portable concentrator. Patient states he has previously had [facility] [place]. Disposition Plan: Patient to discharge home with family support and follow-up plans in place. Roselyn ABRAHAM, RN, CM
[2021-03-23 12:34] LABS: Absolute Lymphocyte Count 4.04 X10^3/uL (0.83-4.51); Absolute Neutrophil Count 9.4 X10^3/uL (2.0-7.7); Basophil# 0.05 X10^3/uL; Basophil% 0.3 % (0-1); Eosinophil# 0.33 X10^3/uL; Eosinophils% 2.3 % (0-5); Hematocrit 39.4 % (40-54); Hemoglobin 10.7 g/dL (13.0-16.5); Lymphocyte # 4.04 X10^3/ul (0.83-4.51); Lymphocyte % 27.7 % (19-41); Mean Corp Hgb Conc 27.2 g/dL (32-36); Mean Corpuscular Hgb 22.5 pg (27.0-32.0); Mean Corpuscular Volume 82.8 fL (80-94); Monocyte# 0.75 X10^3/uL; Monocyte% 5.1 % (0-10); NRBC Flagged by Analyzer 0 % (0-5); Neutrophil # 9.35 X10^3/uL (2.7-7.7); Neutrophil % 64.2 % (47-70); Platelet Count 394 K/mm3 (150-450); RBC Distribution Width SD 48.6 fl (35.1-43.9); Red Blood Count 4.76 M/mm3 (4.6-6.2); White Blood Count 14.6 K/mm3 (4.4-11.0)
--- NOTE | 2021-03-23 13:10 | ECHOCS_ITS ---
Reason For Study: CHEST PAIN Procedure This was a 2D Doppler, Color Flow transthoracic echocardiogram. The exam was of poor technical quality due to body habitus. Contrast injection was performed. Exam performed portable in patient room. Left Ventricle Normal LV size. Left ventricular systolic function is normal. The estimated ejection fraction is 65 %. No regional wall motion abnormalities noted. Right Ventricle Normal RV size. Normal systolic function. Atria Normal left atrium. Normal right atrium. Mitral Valve Normal mitral valve. Tricuspid Valve The tricuspid valve is not well visualized. Aortic Valve The aortic valve is not well visualized. Pulmonic Valve The pulmonic valve is not well visualized. Great Vessels Normal aortic root. Pericardium/Pleural No pericardial effusion. Medication Diluted definity 3.0ml given slow IV push to enhance endocardial definition. MMode/2D Measurements & Calculations LVIDd: 4.9 cm IVSd: 1.1 cm Ao root diam: 2.9 cm LVIDs: 3.3 cm LVPWd: 1.1 cm RVDd: 4.7 cm FS: 33.3 % LAV(MOD-bp): 35.3 ml LA A4 area: 15.0 cm2 LA dimension(2D): 4.0 cm LAV(MOD-bp) Indexed: 11.9 ml/m2 LAV(MOD-sp2): 32.7 ml LAV(MOD-sp4): 37.3 ml Time Measurements MV dec time: 0.19 sec Doppler Measurements & Calculations MV E max jesse: 98.9 cm/sec Lat Peak E' Jesse: 7.3 cm/sec Med Peak E' Jesse: 7.9 cm/sec MV A max jesse: 86.3 cm/sec E/E' lat: 13.5 E/E' med: 12.5 MV E/A: 1.1 Ao V2 max: 177.8 cm/sec LV V1 max: 135.6 cm/sec Ao max P.6 mmHg LV V1 max P.4 mmHg ECHO/Echo Complete W/ Contrast Interpretation Summary Normal LV size. Left ventricular systolic function is normal. The estimated ejection fraction is 65 %. Contrast injection was performed. Ordering Physician: Won Calvillo Referring Physician: DILLON STROUD Performed By: Arabella Plata, CAITLYN, RVT
--- NOTE | 2021-03-23 13:19 | PCM.PN.HOSP ---
Documented by User: Maximilian ARRIETA 03/23/21 13:32 Subjective Subjective Patient is a 50-year-old male comfortably resting in bed, alert and orient x3. Patient reports resolution of his left arm pain which was noted on admission. Denies chest pain, shortness of breath, palpitations, hemoptysis, sputum production, fever, chills, N/V/D. Objective Data Objective Data Vital Signs: Vital Signs Temp Pulse Resp BP Pulse Ox 98.3 F 82 18 103/61 99 03/23/21 09:40 03/23/21 11:30 03/23/21 09:40 03/23/21 09:40 03/23/21 09:40 Oxygen Flow Rate (L/min) 4 Oxygen Delivery Method Nasal Cannula Weight: 428 lb Body Mass Index (BMI) 56.5 Intake & Output: Intake and Output for Last 24 Hours 03/21/21 03/22/21 03/23/21 23:59 23:59 23:59 Intake Total 120 / 120 Balance 120 / 120 Lab / Micro Data Result Diagrams: 03/23/21 05:46 03/23/21 05:46 Labs: Laboratory Results - last 24 hr 03/22/21 16:27: WBC 19.6 H, RBC 5.20, Hgb 11.8 L, Hct 42.5, MCV 81.7, MCH 22.7 L, MCHC 27.8 L, RDW Std Deviation 47.3 H, RDW Coeff of Kris 15.9 H, Plt Count 421, MPV 10.0, Immature Gran % (Auto) 0.600, Neut % (Auto) 75.2 H, Lymph % (Auto) 20.0, [place] % (Auto) 3.5, Eos % (Auto) 0.4, Baso % (Auto) 0.3, Absolute Neuts (auto) 14.7 H, Absolute Lymphs (auto) 3.92, Nucleated RBC % 0 03/22/21 16:27: Sodium 138, Potassium 4.1, Chloride 103, Carbon Dioxide 29.0, Anion Gap 6, BUN 11, Creatinine 1.15, Estim Creat Clear Calc 85.88, Est GFR (MDRD) Af Amer 86, Est GFR (MDRD) Non-Af 71, BUN/Creatinine Ratio 9.6 L, Glucose 167 H, Calcium 9.2, Troponin I High Sens 134 H* 03/22/21 18:50: Troponin I High Sens 372 H* 03/23/21 00:00: Troponin I High Sens 1234 H* 03/23/21 05:46: WBC 14.6 H, RBC 4.76, Hgb 10.7 L, Hct 39.4 L, MCV 82.8, MCH 22.5 L, MCHC 27.2 L, RDW Std Deviation 48.6 H, RDW Coeff of Kris 16.0 H, Plt Count 394, MPV 10.0, Immature Gran % (Auto) 0.400, Neut % (Auto) 64.2, Lymph % (Auto) 27.7, [place] % (Auto) 5.1, Eos % (Auto) 2.3, Baso % (Auto) 0.3, Absolute Neuts (auto) 9.4 H, Absolute Lymphs (auto) 4.04, Nucleated RBC % 0 03/23/21 05:46: Sodium 140, Potassium 3.9, Chloride 104, Carbon Dioxide 34.0 H, Anion Gap 2 L, BUN 12, Creatinine 1.02, Estim Creat Clear Calc 96.83, Est GFR (MDRD) Af Amer 99, Est GFR (MDRD) Non-Af 82, BUN/Creatinine Ratio 11.8, Glucose 83, Calcium 8.5, Triglycerides 102, Cholesterol 173, LDL Cholesterol 107, VLDL Cholesterol 20, HDL Cholesterol 46 03/23/21 05:46: Troponin I High Sens 1497 H* Radiography Diagnostic Testing: Radiology Impression Humerus X-Ray 03/22/21 16:58 IMPRESSION: No acute fracture or other significant bony pathology unchanged since prior study.. Electronically Signed: Rashawn Brenner MD at 18:02 EDT , Service support , Chest X-Ray 03/22/21 17:10 IMPRESSION: Chronic interstitial and old granulomatous disease. No acute cardiopulmonary pathology. Electronically Signed: Rashawn Brenner MD at 18:00 EDT , Service support , Physical Exam Const alert, oriented x3 and no apparent distress HEENT head/scalp atraumatic and moist oral mucous membranes Head and Scalp: normocephalic Eyes PERRL, EOMs intact bilaterally and conjunctivae normal Neck no lymphadenopathy, supple and no JVD Resp normal respiratory effort, no retractions, no use of accessory muscles and clear to auscultation bilaterally Cardio regular rate, regular rhythm, no murmurs and no JVD GI normal to inspection, nondistended, normoactive bowel sounds, soft to palpation and non-tender Extremity normal to inspection, full ROM and no clubbing, cyanosis or edema Skin no rashes or lesions noted, no wounds, skin turgor normal and no jaundice Neuro CN's II-XII intact bilaterally Psych affect normal Assessment & Plan Assessment/Plan (1) Elevated troponin: PLAN: Day 2: See subjective. Discharge planning: Patient will be discharged when medically ready, no home health care needs or additional therapies identified. 1) elevated troponin High-sensitivity troponins elevated at 134, 372, 1000 2034 and 1497 respectively. Chest x-ray admission demonstrated no acute cardiopulmonary pathology. EKG on admission demonstrated bifascicular block with no ST or T wave abnormalities. Lipid panel within normal limits. Cardiology following: Recommends cardiac catheterization on Thursday as well as echocardiogram on 03/24. Plan; continue cardiac telemetry monitoring on PCU, continue aspirin, continue as needed nitroglycerin and morphine for pain, hold Pradaxa for upcoming catheterization. 2) HTN Continue losartan, Bumex initiated. DVT prophylaxis - not indicated Patient seen by Maximilian Perkins PA-C, under the supervision of Dr. Gross Documented by User: Dr. Viktoriya Gross DO 03/23/21 15:11 Subjective Subjective Patient was seen in conjunction with MEENAKSHI Beckett. The following is representation my independent history and physical examination. Please see below for any addendum to the above. Patient is currently questioning what the plan of care is. I discussed with him that he likely needs a cardiac catheterization but given the fact that he is currently not having any chest pain or symptoms this will likely to be deferred till Thursday although cardiology had yet to see the patient. He indicated at that time he may leave AGAINST MEDICAL ADVICE. He evidently has decided to stay until Thursday to get his cardiac catheterization prior to discharge. Objective Data Lab / Micro Data Result Diagrams: 03/23/21 05:46 03/23/21 05:46 Physical Exam Const alert and oriented x3 Constitutional Narrative: Super morbidly obese white male lying in bed in left side-lying, mother at bedside Exam Limitations: no limitations HEENT head/scalp atraumatic and moist oral mucous membranes Head and Scalp: normocephalic Neck supple Neck Narrative: Short thick neck, Mallampati 3-4 Resp normal respiratory effort, no retractions, no use of accessory muscles and clear to auscultation bilaterally Auscultation: Negative for crackles, rales, rhonchi or wheezes Cardio regular rate, regular rhythm, S1 normal heart sound, S2 normal heart sound, no murmurs, no rub, no gallops, no clicks and no JVD GI normal to inspection, nondistended, normoactive bowel sounds, soft to palpation, non-tender and non-distended Extremity no clubbing, cyanosis or edema Peripheral Pulses: Yes pulses 2+ throughout Neuro oriented x3, CN's II-XII intact bilaterally, moves all extremities and no focal motor deficits Sensorium / Orientation: awake and alert Speech: speech normal Assessment & Plan Assessment/Plan (1) NSTEMI, initial episode of care: PLAN: Assessment: NSTEMI Chronic leukocytosis Chronic anemia Super morbid obesity DM-2 RA IBS History of tobacco abuse Hypertension Hyperlipidemia Chronic hypoxic/hypercapnic respiratory failure History of Chanel's gangrene Vitamin D deficiency Hypothyroidism GERD Anxiety disorder/panic attacks Plan: -Continue aspirin, high-dose statin therapy, start metoprolol 25 mg twice daily, continue losartan -Check echocardiogram -Disc Pad Grinder on Thursday -Continue as needed nitroglycerin -Hold full anticoagulation -Patient on Pradaxa at baseline -We will start DVT prophylaxis tomorrow as last dose of Pradaxa was yesterday evening Charges/Coding Visit Charges Inpatient E&M: 09365 Subs Hosp L2
--- NOTE | 2021-03-23 15:24 | CON.PCM.CA_ITS ---
Assessment & Plan Assessment/Plan (1) NSTEMI, initial episode of care: PLAN: 50-year-old patient history of diabetes, heavy smoker Presented with symptoms of chest pain and had non-ST elevation AR Card examination essentially normal Electrocardiogram revealed evidence of bifascicular block/right bundle branch block/left anterior fascicular block Patient was on anticoagulation with Xarelto on hold Recommendation; 1. I discussed the cardiac care plan in detail with the patient, nursing staff, medical team We will continue on the current treatment and will hold Xarelto We will plan for cardiac catheterization on Thursday and also will evaluate by echocardiogram. (2) Elevated troponin: (3) Type 2 diabetes mellitus: (4) Rheumatoid arthritis: (5) HTN (hypertension): (6) HLD (hyperlipidemia): HPI Consult Data Date of Consult: 03/23/21 HPI Narrative Reason for Consultation: Patient with chest pain and non-ST elevation AR HPI Narrative: CAYLA GRANADOS, is a 50 M who presents PFSH Medical History Anxiety Chest pain Chronic pain DVT (deep venous thrombosis) GERD (gastroesophageal reflux disease) Kidney stones On home oxygen therapy Sleep apnea Smoker Home Medications levothyroxine 300 mcg PO DAILY 06/22/13 [History Last Taken 03/22/21 09:00] diazepam [Valium] 10 mg PO Q6H PRN 03/03/16 [History Last Taken 03/22/21 18:00] prednisone 20 mg PO DAILY@0800 04/14/17 [History Last Taken 03/22/21 09:00] albuterol sulfate 2 puff INHALATION Q6H PRN PRN 07/07/20 [History Last Taken 03/22/21 09:00] ascorbic acid (vitamin C) 500 mg PO BID 07/07/20 [History Last Taken Unknown] bumetanide 2 mg PO DAILY 07/07/20 [History Last Taken Unknown] cyclobenzaprine 10 mg PO TID PRN PRN 07/07/20 [History Last Taken Unknown] ergocalciferol (vitamin D2) 50,000 unit PO Q7D 07/07/20 [History Last Taken 03/20/21 09:00] ferrous sulfate 325 mg PO DAILY 07/07/20 [History Last Taken Unknown] gabapentin 100 mg PO QHS 07/07/20 [History Last Taken 03/21/21 22:00] losartan 10 mg PO BID 07/07/20 [History Last Taken 03/20/21 22:00] omeprazole 20 mg PO BID 07/07/20 [History Last Taken 03/22/21 09:00] oxycodone 5 mg PO Q6H PRN PRN 07/07/20 [History Last Taken 03/22/21 18:00] rivaroxaban 20 mg PO DAILY 07/07/20 [History Last Taken Unknown] zinc sulfate 220 mg PO DAILY 07/07/20 [History Last Taken Unknown] zolpidem 5 mg PO QHS PRN 07/07/20 [History Last Taken 03/21/21 22:00] losartan 100 mg PO DAILY #30 tab 09/04/20 [Rx Last Taken Unknown] dabigatran etexilate [Pradaxa] 300 mg PO DAILY 03/22/21 [History Last Taken 03/21/21 09:00] dabigatran etexilate [Pradaxa] mg PO 03/22/21 [History Last Taken Unknown] doxycycline hyclate 100 mg PO BID 03/22/21 [History Last Taken 03/22/21 09:00] Allergy/AdvReac Type Severity Reaction Status Date / Time Penicillins Allergy Hives Verified 03/22/21 16:24 Sulfa (Sulfonamide Allergy Hives Verified 03/22/21 16:24 Antibiotics) etanercept [From Enbrel] AdvReac Swelling Verified 03/22/21 16:24 rivaroxaban [From Xarelto] AdvReac Nausea Verified 03/22/21 16:24 warfarin sodium AdvReac Nausea Verified 03/22/21 16:24 [From Coumadin] Family History Other Cancer Heart disease Kidney disease Social History Smoking Status: Heavy Smoker (>10/day) Physical Exam Narrative Patient seen and evaluated today at bedside along with the nursing staff He is alert orientated x3 Symptoms of chest pain resolved and his left arm discomfort resolved Cardiovascular examination S1-S2 regular, no systolic or diastolic murmur, no gallop rhythm, no pericardial rub Chest examination clear to auscultation bilaterally Examination abdomen soft no palpable masses Examination lower extremity no clubbing no cyanosis no lower extremity edema Central nervous system exam no focal neurological deficit. Objective Data Vital Signs: Vital Signs Temp Pulse Resp BP Pulse Ox 98.3 F 82 18 103/61 99 03/23/21 09:40 03/23/21 11:30 03/23/21 09:40 03/23/21 09:40 03/23/21 09:40 Oxygen Flow Rate (L/min) 4 Oxygen Delivery Method Nasal Cannula Weight: 428 lb 0.016 oz Body Mass Index (BMI) 56.5 Intake & Output: Intake and Output for Last 24 Hours 03/21/21 03/22/21 03/23/21 23:59 23:59 23:59 Intake Total 520 / 520 Balance 520 / 520 Lab / Micro Data Result Diagrams: 03/23/21 05:46 03/23/21 05:46 Labs: Laboratory Results - last 24 hr 03/22/21 16:27: WBC 19.6 H, RBC 5.20, Hgb 11.8 L, Hct 42.5, MCV 81.7, MCH 22.7 L , MCHC 27.8 L, RDW Std Deviation 47.3 H, RDW Coeff of Kris 15.9 H, Plt Count 421, MPV 10.0, Immature Gran % (Auto) 0.600, Neut % (Auto) 75.2 H, Lymph % (Auto) 20.0, [place] % (Auto) 3.5, Eos % (Auto) 0.4, Baso % (Auto) 0.3, Absolute Neuts (auto) 14.7 H, Absolute Lymphs (auto) 3.92, Nucleated RBC % 0 03/22/21 16:27: Sodium 138, Potassium 4.1, Chloride 103, Carbon Dioxide 29.0, Anion Gap 6, BUN 11, Creatinine 1.15, Estim Creat Clear Calc 85.88, Est GFR (MDRD) Af Amer 86, Est GFR (MDRD) Non-Af 71, BUN/Creatinine Ratio 9.6 L, Glucose 167 H, Calcium 9.2, Troponin I High Sens 134 H* 03/22/21 18:50: Troponin I High Sens 372 H* 03/23/21 00:00: Troponin I High Sens 1234 H* 03/23/21 05:46: WBC 14.6 H, RBC 4.76, Hgb 10.7 L, Hct 39.4 L, MCV 82.8, MCH 22.5 L, MCHC 27.2 L, RDW Std Deviation 48.6 H, RDW Coeff of Kris 16.0 H, Plt Count 3 94, MPV 10.0, Immature Gran % (Auto) 0.400, Neut % (Auto) 64.2, Lymph % (Auto) 27.7, [place] % (Auto) 5.1, Eos % (Auto) 2.3, Baso % (Auto) 0.3, Absolute Neuts (auto) 9.4 H, Absolute Lymphs (auto) 4.04, Nucleated RBC % 0 03/23/21 05:46: Sodium 140, Potassium 3.9, Chloride 104, Carbon Dioxide 34.0 H, Anion Gap 2 L, BUN 12, Creatinine 1.02, Estim Creat Clear Calc 96.83, Est GFR (MDRD) Af Amer 99, Est GFR (MDRD) Non-Af 82, BUN/Creatinine Ratio 11.8, Glucose 83, Calcium 8.5, Triglycerides 102, Cholesterol 173, LDL Cholesterol 107, VLDL Cholesterol 20, HDL Cholesterol 46 03/23/21 05:46: Troponin I High Sens 1497 H* Cardiology Labs/Tests 03/22/21 16:27: WBC 19.6 H, RBC 5.20, Hgb 11.8 L, Hct 42.5, MCV 81.7, MCH 22.7 L , MCHC 27.8 L, Plt Count 421, MPV 10.0, Immature Gran % (Auto) 0.600, Neut % (Auto) 75.2 H, Lymph % (Auto) 20.0, [place] % (Auto) 3.5, Eos % (Auto) 0.4, Baso % (Auto) 0.3, Absolute Neuts (auto) 14.7 H, Nucleated RBC % 0 03/22/21 16:27: Sodium 138, Potassium 4.1, Chloride 103, Carbon Dioxide 29.0, Anion Gap 6, BUN 11, Creatinine 1.15, Est GFR (MDRD) Af Amer 86, Est GFR (MDRD) Non-Af 71, BUN/Creatinine Ratio 9.6 L, Glucose 167 H, Calcium 9.2 03/23/21 05:46: WBC 14.6 H, RBC 4.76, Hgb 10.7 L, Hct 39.4 L, MCV 82.8, MCH 22.5 L, MCHC 27.2 L, Plt Count 394, MPV 10.0, Immature Gran % (Auto) 0.400, Neut % (Auto) 64.2, Lymph % (Auto) 27.7, [place] % (Auto) 5.1, Eos % (Auto) 2.3, Baso % (Auto) 0.3, Absolute Neuts (auto) 9.4 H, Nucleated RBC % 0 03/23/21 05:46: Sodium 140, Potassium 3.9, Chloride 104, Carbon Dioxide 34.0 H, Anion Gap 2 L, BUN 12, Creatinine 1.02, Est GFR (MDRD) Af Amer 99, Est GFR (MDRD) Non-Af 82, BUN/Creatinine Ratio 11.8, Glucose 83, Calcium 8.5, Triglycerides 102, Cholesterol 173, LDL Cholesterol 107, VLDL Cholesterol 20, HDL Cholesterol 46 Rhythm: Normal sinus rhythm EKG: Right bundle branch block, left anterior fascicular block/bifascicular block Radiography Diagnostic Testing: Radiology Impression Humerus X-Ray 03/22/21 16:58 IMPRESSION: No acute fracture or other significant bony pathology unchanged since prior study.. Electronically Signed: Rashawn Brenner MD at 18:02 EDT , Service support , Chest X-Ray 03/22/21 17:10 IMPRESSION: Chronic interstitial and old granulomatous disease. No acute cardiopulmonary pathology. Electronically Signed: Rashawn Brenner MD at 18:00 EDT , Service support ,
[2021-03-23] MEDS: predniSONE 20 MG Tablet PO (21:10)
[2021-03-23] MEDS: Enoxaparin 40 MG/0.4 ML Syringe SC (21:11)
[2021-03-23] MEDS: Gabapentin 100 MG Capsule PO (21:12)
[2021-03-24] VITALS (10 sets, daily range): BP systolic 117–133; BP diastolic 57–68; PULSE 78–97; RESP 18–20; TEMP 36.6–37.1; O2SAT 93–100
[2021-03-24 05:07] LABS: Absolute Lymphocyte Count 2.14 X10^3/uL (0.83-4.51); Basophil# 0.04 X10^3/uL; Basophil% 0.3 % (0-1); Eosinophil# 0.09 X10^3/uL; Eosinophils% 0.7 % (0-5); Hematocrit 43.5 % (40-54); Hemoglobin 12.2 g/dL (13.0-16.5); Lymphocyte # 2.14 X10^3/ul (0.83-4.51); Lymphocyte % 15.6 % (19-41); Mean Corpuscular Hgb 22.7 pg (27.0-32.0); Mean Corpuscular Volume 80.9 fL (80-94); Mean Platelet Vol. 9.2 fl (6.2-12.0); Monocyte# 0.33 X10^3/uL; Monocyte% 2.4 % (0-10); NRBC Flagged by Analyzer 0 % (0-5); Neutrophil # 11.04 X10^3/uL (2.7-7.7); Neutrophil % 80.5 % (47-70); Platelet Count 370 K/mm3 (150-450); RBC Distribution Width CV 15.6 % (11.6-14.6); RBC Distribution Width SD 45.9 fl (35.1-43.9); Red Blood Count 5.38 M/mm3 (4.6-6.2); White Blood Count 13.7 K/mm3 (4.4-11.0)
[2021-03-24 05:28] LABS: Anion Gap 3 (5-15); BUN 11 mg/dL (7-18); BUN/Creat Ratio 11.1 RATIO (10-20); Calcium,Total 9.3 mg/dL (8.5-10.1); Chloride 102 mmol/L (98-107); Creatinine, Serum 0.99 mg/dL (0.70-1.30); EST Glomerular Filtration Rate 85 mL/min (>60); Est Glom Filt Rate - Afr Amer 103 mL/min (>60); Estimated Creatinine Clearance 99.76 ml/min; Glucose 134 mg/dL (74-106); Potassium 4.8 mmol/L (3.5-5.1); Sodium Level 138 mmol/L (136-145)
[2021-03-24] MEDS: Nystatin Powder 15gm Bottle 1 APPLIC TOPICAL ×2 (08:58→21:35)
[2021-03-24] MEDS: Levothyroxine 150 MCG Tablet 300 MCG PO (08:58)
[2021-03-24] MEDS: predniSONE 20 MG Tablet PO (08:59)
[2021-03-24] MEDS: Doxycycline 100 MG CAPSULE PO ×2 (08:59→21:36)
[2021-03-24] MEDS: Pantoprazole Sodium 20 MG Tablet PO ×2 (08:59→21:36)
[2021-03-24] MEDS: Aspirin E.C. 81 MG Tablet PO (08:59)
[2021-03-24] MEDS: Losartan Potassium 100 MG Tablet PO (08:59)
[2021-03-24] MEDS: Enoxaparin 40 MG/0.4 ML Syringe SC ×2 (09:01→21:34)
--- NOTE | 2021-03-24 11:13 | PN.CARD_ITS ---
Subjective Subjective Patient seen at bedside today, comfortable no further episode of chest pain, left arm discomfort resolved. No event noted from last night with a cardiac technician showed normal sinus rhythm Objective Data Vital Signs: Vital Signs Temp Pulse Resp BP Pulse Ox 98.2 F 79 18 117/62 93 03/24/21 08:55 03/24/21 08:55 03/24/21 08:55 03/24/21 08:55 03/24/21 08:55 Oxygen Flow Rate (L/min) 4 Oxygen Delivery Method Room Air Weight: 428 lb 0.016 oz Body Mass Index (BMI) 56.5 Intake & Output: Intake and Output for Last 24 Hours 03/22/21 03/23/21 03/24/21 23:59 23:59 23:59 Intake Total 520 / 820 700 / 700 Balance 520 / 820 700 / 700 Lab / Micro Data Result Diagrams: 03/24/21 04:37 03/24/21 04:37 Labs: Laboratory Results - last 24 hr 03/23/21 05:46: WBC 14.6 H, RBC 4.76, Hgb 10.7 L, Hct 39.4 L, MCV 82.8, MCH 22.5 L, MCHC 27.2 L, RDW Std Deviation 48.6 H, RDW Coeff of Kris 16.0 H, Plt Count 394, MPV 10.0, Immature Gran % (Auto) 0.400, Neut % (Auto) 64.2, Lymph % (Auto) 27.7, [place] % (Auto) 5.1, Eos % (Auto) 2.3, Baso % (Auto) 0.3, Absolute Neuts (auto) 9.4 H, Absolute Lymphs (auto) 4.04, Nucleated RBC % 0 03/24/21 04:37: WBC 13.7 H, RBC 5.38, Hgb 12.2 L, Hct 43.5, MCV 80.9, MCH 22.7 L , MCHC 28.0 L, RDW Std Deviation 45.9 H, RDW Coeff of Kris 15.6 H, Plt Count 370, MPV 9.2, Immature Gran % (Auto) 0.500, Neut % (Auto) 80.5 H, Lymph % (Auto) 15.6 L, [place] % (Auto) 2.4, Eos % (Auto) 0.7, Baso % (Auto) 0.3, Absolute Neuts (auto) 11.0 H, Absolute Lymphs (auto) 2.14, Nucleated RBC % 0 03/24/21 04:37: Sodium 138, Potassium 4.8, Chloride 102, Carbon Dioxide 33.0 H, Anion Gap 3 L, BUN 11, Creatinine 0.99, Estim Creat Clear Calc 99.76, Est GFR (MDRD) Af Amer 103, Est GFR (MDRD) Non-Af 85, BUN/Creatinine Ratio 11.1, Glucose 134 H, Calcium 9.3 Cardiology Labs/Tests 03/23/21 05:46: WBC 14.6 H, RBC 4.76, Hgb 10.7 L, Hct 39.4 L, MCV 82.8, MCH 22.5 L, MCHC 27.2 L, Plt Count 394, MPV 10.0, Immature Gran % (Auto) 0.400, Neut % (A uto) 64.2, Lymph % (Auto) 27.7, [place] % (Auto) 5.1, Eos % (Auto) 2.3, Baso % (Auto) 0.3, Absolute Neuts (auto) 9.4 H, Nucleated RBC % 0 03/24/21 04:37: WBC 13.7 H, RBC 5.38, Hgb 12.2 L, Hct 43.5, MCV 80.9, MCH 22.7 L , MCHC 28.0 L, Plt Count 370, MPV 9.2, Immature Gran % (Auto) 0.500, Neut % (Auto) 80.5 H, Lymph % (Auto) 15.6 L, [place] % (Auto) 2.4, Eos % (Auto) 0.7, Baso % (Auto) 0.3, Absolute Neuts (auto) 11.0 H, Nucleated RBC % 0 03/24/21 04:37: Sodium 138, Potassium 4.8, Chloride 102, Carbon Dioxide 33.0 H, Anion Gap 3 L, BUN 11, Creatinine 0.99, Est GFR (MDRD) Af Amer 103, Est GFR (MDRD) Non-Af 85, BUN/Creatinine Ratio 11.1, Glucose 134 H, Calcium 9.3 Rhythm: EKG: ECHO: Stress Test: Cardiac Cath: PCI: CT Surgery: Holter monitor: EPS: PPM: CXR: Chest CT Scan: Physical Exam Narrative Patient alert and orientated x3 phototypesetting equipment monitor showed underlying normal sinus rhythm. Cardiac examination S1-S2 is regular there is no murmur no systolic or diastolic murmur Chest examination clear to auscultation Examination abdomen soft Examination lower extremity no clubbing no cyanosis no extremity edema Examination Central nervous system no focal neurological deficit. Assessment & Plan Assessment/Plan (1) NSTEMI, initial episode of care: PLAN: 50-year-old patient presented with symptoms of chest pain Has multiple risk factor for CAD with the family history of early CAD father had a history of coronary atherosclerosis at the age of 51 Patient had a history of diabetes hypertension COPD and was on a steroid therapy Presentation is typical of angina and symptoms of chest pain subsequent cardiac biomarkers and high sensitive troponin revealed evidence of non-ST elevation myocardial infarction He is stable clinically he does not have any recurrent episode of chest pain and his symptoms of left arm discomfort resolved Recommendations; 1. I reviewed and discussed the current medication will continue current treatment for CAD non-ST elevation SD 2. Patient was on anticoagulation with a very proximal and which is on hold for more than 48 hours now 3. Patient is switched to heparin for treatment of non-ST elevation SD 4. We will evaluate this patient by echocardiogram and left heart catheter ization. (2) Elevated troponin: (3) Type 2 diabetes mellitus: (4) Super obesity: (5) HTN (hypertension): (6) HLD (hyperlipidemia): (7) Family history of premature CAD: (8) COPD (chronic obstructive pulmonary disease): (9) Chronic steroid use: (10) Chronic hypoxemic respiratory failure:
--- NOTE | 2021-03-24 12:14 | PN.HOSP_ITS ---
Documented by User: Maximilian ARRIETA 03/24/21 12:18 Subjective Subjective Patient is a 50-year-old male comfortably resting in bed, alert and orient x3. Patient denies any ongoing chest or arm pain, which was present on admission. Denies chest pain, shortness of breath, palpitations, hemoptysis, sputum pro duction, fever, chills, N/V/D. Objective Data Objective Data Vital Signs: Vital Signs Temp Pulse Resp BP Pulse Ox 98.2 F 78 18 117/62 93 03/24/21 08:55 03/24/21 11:10 03/24/21 08:55 03/24/21 08:55 03/24/21 08:55 Oxygen Flow Rate (L/min) 4 Oxygen Delivery Method Room Air Weight: 428 lb 0.016 oz Body Mass Index (BMI) 56.5 Intake & Output: Intake and Output for Last 24 Hours 03/22/21 03/23/21 03/24/21 23:59 23:59 23:59 Intake Total 520 / 820 700 / 700 Balance 520 / 820 700 / 700 Lab / Micro Data Result Diagrams: 03/24/21 04:37 03/24/21 04:37 Labs: Laboratory Results - last 24 hr 03/23/21 05:46: WBC 14.6 H, RBC 4.76, Hgb 10.7 L, Hct 39.4 L, MCV 82.8, MCH 22.5 L, MCHC 27.2 L, RDW Std Deviation 48.6 H, RDW Coeff of Kris 16.0 H, Plt Count 394, MPV 10.0, Immature Gran % (Auto) 0.400, Neut % (Auto) 64.2, Lymph % (Auto) 27.7, Andrews % (Auto) 5.1, Eos % (Auto) 2.3, Baso % (Auto) 0.3, Absolute Neuts (auto) 9.4 H, Absolute Lymphs (auto) 4.04, Nucleated RBC % 0 03/24/21 04:37: WBC 13.7 H, RBC 5.38, Hgb 12.2 L, Hct 43.5, MCV 80.9, MCH 22.7 L , MCHC 28.0 L, RDW Std Deviation 45.9 H, RDW Coeff of Kris 15.6 H, Plt Count 370, MPV 9.2, Immature Gran % (Auto) 0.500, Neut % (Auto) 80.5 H, Lymph % (Auto) 15.6 L, Andrews % (Auto) 2.4, Eos % (Auto) 0.7, Baso % (Auto) 0.3, Absolute Neuts (auto) 11.0 H, Absolute Lymphs (auto) 2.14, Nucleated RBC % 0 03/24/21 04:37: Sodium 138, Potassium 4.8, Chloride 102, Carbon Dioxide 33.0 H, Anion Gap 3 L, BUN 11, Creatinine 0.99, Estim Creat Clear Calc 99.76, Est GFR (MDRD) Af Amer 103, Est GFR (MDRD) Non-Af 85, BUN/Creatinine Ratio 11.1, Glucose 134 H, Calcium 9.3 Physical Exam Const alert, oriented x3 and no apparent distress HEENT head/scalp atraumatic and moist oral mucous membranes Head and Scalp: normocephalic Eyes PERRL, EOMs intact bilaterally and conjunctivae normal Neck no lymphadenopathy, supple and no JVD Resp normal respiratory effort, no retractions, no use of accessory muscles and clear to auscultation bilaterally Cardio regular rate, regular rhythm, no murmurs and no JVD GI normal to inspection, nondistended, normoactive bowel sounds, soft to palpation and non-tender Extremity normal to inspection, full ROM and no clubbing, cyanosis or edema Skin no rashes or lesions noted, no wounds, skin turgor normal and no jaundice Neuro CN's II-XII intact bilaterally Psych affect normal Assessment & Plan Assessment/Plan (1) NSTEMI, initial episode of care: (2) Elevated troponin: (3) HTN (hypertension): PLAN: Day 3: See subjective. Discharge planning: Patient will be discharged when medically ready, no home health care needs or additional therapies identified. 1) elevated troponin High-sensitivity troponins elevated at 134, 372, 1000 2034 and 1497 respectively. Chest x-ray admission demonstrated no acute cardiopulmonary pathology. EKG on admission demonstrated bifascicular block with no ST or T wave abnormalities. Lipid panel within normal limits. Cardiology following: Recommends cardiac catheterization on Sunday 03/25 as well as echocardiogram. Plan; patient currently on Lovenox, but likely to be switched to heparin per cardiology's note, continue cardiac telemetry monitoring on PCU, continue aspirin, continue as needed nitroglycerin and morphine for pain, hold Pradaxa for upcoming catheterization. 2) HTN Continue losartan, Bumex initiated. DVT prophylaxis - not indicated Patient seen by Maximilian Perkins PA-C, under the supervision of Dr. Gross Documented by User: Dr. Viktoriya Gross DO 03/24/21 12:45 Subjective Subjective This patient was seen in conjunction with MEENAKSHI Beckett. The following represents my independent history and physical. Please see below for any addendum to the above. Patient states he overall had a good night. He is willing to stay for heart catheterization tomorrow morning. He had questions related to the procedure which were reviewed and answered for him. He denies any current chest pain, left arm pain, or shortness of breath. Objective Data Lab / Micro Data Result Diagrams: 03/24/21 04:37 03/24/21 04:37 Physical Exam Const alert, oriented x3 and no apparent distress Constitutional Narrative: Morbidly obese middle-aged white male sitting up in bed, appears comfortable, nontoxic Nutritional Appearance: morbidly obese HEENT head/scalp atraumatic Head and Scalp: normocephalic Resp normal respiratory effort, no retractions, no use of accessory muscles and clear to auscultation bilaterally Resp Narrative: Distant but clear Auscultation: Negative for crackles, rales, rhonchi or wheezes Cardio regular rate, regular rhythm, S1 normal heart sound, S2 normal heart sound, no murmurs, no rub, no gallops, no clicks and no JVD GI normal to inspection, nondistended, normoactive bowel sounds, soft to palpation, non-tender and non-distended Extremity no clubbing, cyanosis or edema Assessment & Plan Assessment/Plan (1) NSTEMI, initial episode of care: PLAN: Assessment: NSTEMI Chronic leukocytosis Chronic anemia Super morbid obesity DM-2 RA IBS History of tobacco abuse Hypertension Hyperlipidemia Chronic hypoxic/hypercapnic respiratory failure History of Chanel's gangrene Vitamin D deficiency Hypothyroidism GERD Anxiety disorder/panic attacks Plan: -Continue aspirin, high-dose statin therapy, metoprolol 25 mg twice daily, continue losartan -echocardiogram pending -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 -Continue as needed nitroglycerin -Hold full anticoagulation -Patient on Pradaxa at baseline -Start Lovenox 40 mg twice daily Charges/Coding Visit Charges Inpatient E&M: 16380 Subs Hosp L2
[2021-03-24] MEDS: diazePAM 5 MG Tablet 10 MG PO (18:11)
[2021-03-24] MEDS: Atorvastatin Calcium 80 MG Tablet PO (21:35)
[2021-03-24] MEDS: Gabapentin 100 MG Capsule PO (21:36)
[2021-03-25] VITALS (18 sets, daily range): BP systolic 108–159; BP diastolic 72–92; PULSE 73–92; RESP 12–20; TEMP 36–36.8; O2SAT 94–100
--- NOTE | 2021-03-25 05:00 | EKG12_ITS ---
Test Reason : NSTEMI A.M. EKG Blood Pressure : / mmHG Vent. Rate : 080 BPM Atrial Rate : 080 BPM P-R Int : 176 ms QRS Dur : 136 ms QT Int : 420 ms P-R-T Axes : 055 -56 024 degrees QTc Int : 484 ms Normal sinus rhythm Right bundle branch block Left anterior fascicular block Bifascicular block Abnormal ECG When compared with ECG of 22-MAR-2021 23:57, MANUAL COMPARISON REQUIRED, DATA IS UNCONFIRMED Confirmed by GODWIN MEZA, EDWARDO ([id number]), rewrite editor ALF RUCKER ([id number]) on 03/26/2021 7:58:14 AM Referred By: MAGUE Confirmed By:EDWARDO CONNELLY MD
[2021-03-25] MEDS: 0.9% Saline Lock 10 ML Syringe IV (06:17)
[2021-03-25] MEDS: diazePAM 5 MG Tablet 10 MG PO ×2 (06:17→13:44)
[2021-03-25] MEDS: Losartan Potassium 100 MG Tablet PO (06:18)
[2021-03-25] MEDS: Aspirin E.C. 81 MG Tablet PO (06:18)
[2021-03-25] MEDS: Levothyroxine 150 MCG Tablet 300 MCG PO (06:20)
--- NOTE | 2021-03-25 08:51 | PCM.PN.CARD ---
Subjective Subjective Patient seen and evaluated. Objective Data Vital Signs: Vital Signs Temp Pulse Resp BP Pulse Ox 96.8 F L 79 18 159/92 H 96 03/25/21 06:14 03/25/21 06:56 03/25/21 06:14 03/25/21 06:14 03/25/21 06:14 Oxygen Flow Rate (L/min) 4 Oxygen Delivery Method Room Air Weight: 428 lb 0.016 oz Body Mass Index (BMI) 56.5 Intake & Output: Intake and Output for Last 24 Hours 03/23/21 03/24/21 03/25/21 23:59 23:59 23:59 Intake Total 520 / 820 1320 / 1320 60 / 60 Balance 520 / 820 1320 / 1320 60 / 60 Lab / Micro Data Result Diagrams: 03/24/21 04:37 03/24/21 04:37 Cardiology Labs/Tests Rhythm: EKG: Normal sinus rhythm with no acute changes ECHO: Stress Test: Cardiac Cath: PCI: CT Surgery: Holter monitor: EPS: PPM: CXR: Chest CT Scan: Physical Exam Const alert and oriented x3 HEENT normocephalic Eyes EOMs intact bilaterally Neck no JVD Lymph Lymphatic: no lymphadenopathy noted Chest inspection of chest normal Resp normal respiratory effort Cardio regular rate and regular rhythm Palpation: normal PMI Rate: regular rate Rhythm: regular rhythm Heart Sounds: S1 normal and S2 normal external exam normal Assessment & Plan Assessment/Plan (1) NSTEMI, initial episode of care: PLAN: He does have non-ST elevation myocardial infarction based on his cardiac enzyme abnormality. He underwent a cardiac catheterization today which demonstrated the following: Normal left main coronary artery Left anterior descending artery with no significant stenosis Left circumflex artery with no significant stenosis Dominant large right coronary artery with smooth 80% distal stenosis Preserved left ventricular systolic function Based on the above angiographic findings would consider angioplasty and stenting to the right coronary artery (2) HTN (hypertension): PLAN: Continue current medical therapy
--- NOTE | 2021-03-25 08:58 | CL.D_ITS ---
Patient Name: CAYLA GRANADOS Study Date: 03/25/2021 Performing: Enrique Melton MD Ht: 72.83 inches 185 cm : 1970 Wt: 427.7 lbs 194 kg Age: 50 Gender: male BSA: 2.97 PROCEDURE(S) PERFORMED NH13-FWN/COR/LV CLINICAL PROFILE AND INDICATIONS Indications: Suspected CAD Heart Failure: None Stress/Imaging Stress/Image Study Performed: No CAD Presentations: Non-STEMI. Symptom onset Date/Time: 03/24/21 Time Not Available CONCLUSIONS Severe single-vessel disease with mid to distal 80% right coronary artery lesion and preserved ejecti on fraction RECOMMENDATIONS Referred for immediate PCI DESCRIPTION OF PROCEDURE The patient arrived to the procedure lab. The risks and benefits of the procedure as well as a full d escription of our services here and current unavailability of surgical backup were fully explained to the patient and/or their significant other prior to the catheterization. The Timeout was completed, verifying the correct patient and procedure. The patient's procedural site was prepped and draped in the usual fashion. Local anesthetic was given subcutaneously to right radial region with Lidocaine 2% . Using a modified Seldinger technique, arterial access was obtained via the right radial artery, a 6 Fr sheath was inserted. Left Coronary Artery selective angiography was performed in multiple views u sing a 5 Fr. 4.0 [place] catheter. Right Coronary Artery selective angiography was then performed in mu ltiple views using a 5 Fr. JR 5 catheter. Left Ventriculography was performed in GONG projection using a 5 Fr. Pigtail catheter. LV to AO pullback pressures were then recorded. CORONARY ANGIOGRAPHY DOMINANCE: Right Dominant LEFT HEART ASSESSMENT Left Ventricular Ejection Fraction: by LV Gram 65 % Normal LV wall motion Normal Left Ventricular systolic function LEFT MAIN: Angiographically normal LEFT ANTERIOR DESCENDING ARTERY: No significant disease noted CIRCUMFLEX ARTERY: No significant disease noted RIGHT CORONARY ARTERY: MID RCA: 80 % Stenosis COMPLICATIONS PROCEDURE MEDICATIONS Fentanyl 50 mcg IV Versed 1 mg IV Versed 1 mg IV Oxygen: 4 L/min via nasal cannula Heparin given IA 03/25/2021 08:32:25 Heparin 83645 unit(s) IV 03/25/2021 08:53:58 Verapamil 2.5mg, Ntg 100mcgs, 3000 units of Heparin given IA 03/25/2021 08:32:25 SUMMARY OF HEMODYNAMIC DATA Time AIR REST ECG 08:11:05 AO 111/80 (95) SA 08:35:04 LV 119/3, 9 08:46:09 LV 115/3, 10 08:46:15 LV 114/7, 12 08:47:14 LVp 120/4, 15 08:47:29 AOp 121/67 (90) 08:47:34 Signed By Enrique Melton MD On 03/25/2021 8:58:00 AM Enrique Melton MD
--- NOTE | 2021-03-25 09:13 | CASEMGMT ---
Insurance review for hospitals In-network with [facility] Insurance if transfer is recommended is as follows: [facility], [place], [place], [facility], [place], [place], [facility] ([facility]), and . Karol FLOWERN RN CM
--- NOTE | 2021-03-25 09:23 | CL.I_ITS ---
Patient Name: CAYLA GRANADOS Study Date: 03/25/2021 Performing: Chris Levine MD Ht: 72.83 inches 185 cm : 1970 Wt: 427.7 lbs 194 kg Age: 50 Gender: male BSA: 2.97 PROCEDURE(S) PERFORMED [id number] W OR WO PTCA, SINGLE CORONARY ARTERY CLINICAL PROFILE AND CO-MORBIDITIES Indications: Suspected CAD Heart Failure: None Stress/Imaging Stress/Image Study Performed: No CAD Presentations: Non-STEMI. Symptom onset Date/Time: 03/24/21 Time Not Available CONCLUSIONS Successful FORTUNATO to distal RCA RECOMMENDATIONS DESCRIPTION OF PROCEDURE The patient arrived to the procedure lab. The risks and benefits of the procedure as well as a full d escription of our services here and current unavailability of surgical backup were fully explained to the patient and/or their significant other prior to the catheterization. The Timeout was completed, verifying the correct patient and procedure. The patient's procedural site was prepped and draped in the usual fashion. Local anesthetic was given subcutaneously to right radial region with Lidocaine 2% Using a modified Seldinger technique,arterial access was obtained via the right radial artery, a 6Fr sheath was inserted. Left Coronary Artery selective angiography was performed in multiple views usin g a 5 Fr. 4.0 [place] catheter. Right Coronary Artery selective angiography was then performed in multi ple views using a 5 Fr. JR 5 catheter. Left Ventriculography was performed in GONG projection using a 5 Fr. Pigtail catheter. LV to AO pullback pressures were then recorded.The images were reviewed and options discussed. A decision was then made to proceed with an Intervention, IVUS or oth er adjunct procedure. JR 4 Guide catheter was inserted and engaged into the RCA. BMW Guide wire was advanced to the RCA . 2.75x22 [employer]ro Drug Eluting stent was inserted. Drug Eluting stent was advanced across the lesion i n the right coronary, distal. Angiogram performed post stent deployment. The arterial sheath was pu lled and a TR Band was applied for hemostasis. 10cc of air INTERVENTION INFORMATION LESION SITE: RCA (Distal) Lesion Complexity: High/C, chronic total occlusion: No, lesion at bifurcation: No, thrombus present: No, lesion length: 20 mm, culprit lesion: Yes, Previously treated lesion: No Pre Stenosis: 80 % Pre intervention NILSA flow: 3 PROCEDURE: Drug Eluting Stent Post Stenosis: 0 % Post intervention NILSA flow: 3 Lesion Devices: [place] .014 BMW [place] Straight 190cm Medtronic 6 Fr JR4.0 100cm Guide Catheter Biotronik Kimberlyn MR FORTUNATO 2.75x22 COMPLICATIONS No Complications PROCEDURE MEDICATIONS Fentanyl 50 mcg IV Versed 1 mg IV Versed 1 mg IV Oxygen: 4 L/min via nasal cannula Brilinta 180 mg PO @ 03/25/2021 09:08:21 Heparin given IA 03/25/2021 08:32:25 Heparin 21724 unit(s) IV 03/25/2021 08:53:58 Verapamil 2.5mg, Ntg 100mcgs, 3000 units of Heparin given IA 03/25/2021 08:32:25 SUMMARY OF HEMODYNAMIC DATA Time AIR REST ECG 08:11:05 AO 111/80 (95) SA 08:35:04 LV 119/3, 9 08:46:09 LV 115/3, 10 08:46:15 LV 114/7, 12 08:47:14 LVp 120/4, 15 08:47:29 AOp 121/67 (90) 08:47:34 09:20:38 Signed By Chris Levine MD On 03/25/2021 09:22:29 Chris Levine MD
--- NOTE | 2021-03-25 10:00 | EKG12_ITS ---
Test Reason : POST CATH Blood Pressure : / mmHG Vent. Rate : 086 BPM Atrial Rate : 086 BPM P-R Int : 180 ms QRS Dur : 140 ms QT Int : 410 ms P-R-T Axes : 065 -65 039 degrees QTc Int : 490 ms Sinus rhythm with Fusion complexes Left axis deviation Right bundle branch block Inferior infarct , age undetermined Abnormal ECG When compared with ECG of 25-MAR-2021 05:58, MANUAL COMPARISON REQUIRED, DATA IS UNCONFIRMED Confirmed by GODWIN MEZA, EDWARDO ([id number]), dictionary editor ALF RUCKER ([id number]) on 03/26/2021 7:59:52 AM Referred By: GODWIN Confirmed By:EDWARDO CONNELLY MD
[2021-03-25] MEDS: 0.9% Normal Saline 1,000 ML 80 ML IV (10:01)
--- NOTE | 2021-03-25 10:16 | PCM.PN.HOSP ---
Documented by User: Maximilian ARRIETA 03/25/21 10:30 Subjective Subjective Patient is a 58-year-old male comfortably resting in bed, alert and orient x3. Patient reports no change or progression of symptoms from yesterday. Denies chest pain, shortness of breath, palpitations, hemoptysis, sputum production, fever, chills, N/V/D. Objective Data Objective Data Vital Signs: Vital Signs Temp Pulse Resp BP Pulse Ox 98.2 F 78 16 119/84 H 98 03/25/21 09:45 03/25/21 10:00 03/25/21 10:00 03/25/21 10:00 03/25/21 10:00 Oxygen Flow Rate (L/min) 4 Oxygen Delivery Method Nasal Cannula Weight: 428 lb 0.016 oz Body Mass Index (BMI) 56.5 Intake & Output: Intake and Output for Last 24 Hours 03/23/21 03/24/21 03/25/21 23:59 23:59 23:59 Intake Total 520 / 820 1320 / 1320 60 / 60 Balance 520 / 820 1320 / 1320 60 / 60 Lab / Micro Data Result Diagrams: 03/24/21 04:37 03/24/21 04:37 Physical Exam Const alert, oriented x3 and no apparent distress HEENT head/scalp atraumatic, moist oral mucous membranes and oropharynx normal Head and Scalp: normocephalic Eyes EOMs intact bilaterally and conjunctivae normal Neck no lymphadenopathy, supple and no JVD Resp normal respiratory effort, no retractions, no use of accessory muscles and clear to auscultation bilaterally Cardio regular rate, no murmurs and no JVD GI normal to inspection, nondistended, normoactive bowel sounds, soft to palpation and non-tender Extremity normal to inspection, full ROM and no clubbing, cyanosis or edema Skin no rashes or lesions noted, no wounds, skin turgor normal and no jaundice Neuro CN's II-XII intact bilaterally Psych affect normal Assessment & Plan Assessment/Plan (1) NSTEMI, initial episode of care: (2) Elevated troponin: (3) HTN (hypertension): PLAN: Discharge planning: Patient will likely be discharged on 03/26, no home health care needs or additional therapies identified. 1) NSTEMI Cardiac catheterization on 03/24 demonstrated 80% smooth distal stenosis of the large right coronary artery and preserved left ventricular systolic function. RCA stented with angioplasty. Recommend continuing medical management. Plan; patient currently on Lovenox, but likely to be switched to heparin per cardiology's note, continue cardiac telemetry monitoring on PCU, continue aspirin, continue as needed nitroglycerin and morphine for pain, hold Pradaxa, initiate ticagrelor. 2) HTN Continue losartan, Bumex initiated. DVT prophylaxis - Lovenox Patient seen by Maximilian Perkins PA-C, under the supervision of Dr. Gross Documented by User: Dr. Viktoriya Gross DO 03/25/21 12:45 Subjective Subjective Patient was seen in conjunction with MEENAKSHI Beckett. The following represents my independent history and physical examination. Please see below for any addendum to the above. Patient states he is feeling fine. Had one stent placed this morning. We discussed that he would be on new home-going medications and would like them filled here at the hospital. No other issues. 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 Exam Limitations: no limitations Nutritional Appearance: morbidly obese HEENT head/scalp atraumatic and moist oral mucous membranes Head and Scalp: normocephalic Neck supple Neck Narrative: Short thick neck, Mallampati 3-4 Resp normal respiratory effort, no retractions, no use of accessory muscles and clear to auscultation bilaterally Resp Narrative: Distant but clear Auscultation: Negative for crackles, rales, rhonchi or wheezes Cardio regular rate, regular rhythm, S1 normal heart sound, S2 normal heart sound, no murmurs, no rub, no gallops, no clicks and no JVD GI normal to inspection, nondistended, normoactive bowel sounds, soft to palpation, non-tender and non-distended Extremity no clubbing, cyanosis or edema Neuro oriented x3, CN's II-XII intact bilaterally, moves all extremities and no focal motor deficits Sensorium / Orientation: awake and alert Speech: speech normal Psych affect normal Assessment & Plan Assessment/Plan (1) NSTEMI, initial episode of care: (2) Atherosclerotic heart disease of [place] coronary artery without angina pectoris: (3) History of coronary artery stent placement: PLAN: Assessment: NSTEMI CAD Chronic leukocytosis Chronic anemia Super morbid obesity DM-2 RA IBS History of tobacco abuse Hypertension Hyperlipidemia Chronic hypoxic/hypercapnic respiratory failure History of Chaenl's gangrene Vitamin D deficiency Hypothyroidism GERD Anxiety disorder/panic attacks Plan: -RCA stent placed for severe single-vessel coronary disease with a mid to distal 80% RCA lesion -Echocardiogram is pending but LV gram showed a preserved ejection fraction -Continue aspirin, high-dose statin therapy, metoprolol 25 mg twice daily, continue losartan -Brilinta added today 90 mg twice daily -Start cardiac carb controlled diet -Probable discharge tomorrow Charges/Coding Visit Charges Inpatient E&M: 16320 Subs Hosp L2
[2021-03-25] MEDS: predniSONE 20 MG Tablet PO (10:22)
[2021-03-25] MEDS: Pantoprazole Sodium 20 MG Tablet PO ×2 (10:22→22:54)
[2021-03-25] MEDS: Nystatin Powder 15gm Bottle 1 APPLIC TOPICAL ×2 (10:23→22:53)
[2021-03-25] MEDS: Doxycycline 100 MG CAPSULE PO ×2 (12:12→22:53)
--- NOTE | 2021-03-25 13:14 | CHAPLAIN ---
Type of Pastoral Visit _x__ Initial Visit ___ Follow-up Visit ___ On-call Visit ___ General Patient Visit ___ Spiritual Assessment ___ Family Conference ___ Bereavement ___ Rapid Response ___ Code Blue ___ Other (describe below) Pastoral Care Referral From _x__ Patient ___ Family ___ Nurse ___ Physician ___ Ammonium Nitrate Neutralizer ___ Delivery Nurse ___ Other (describe below) Sacrament/Intervention _x__ Active listening ___ Anointing ___ Druze ___ Bereavement ___ Communion _x__ Paulina exploration ___ ___ Life review _x__ Prayer ___ Reconciliation ___ Sacrament of Sick ___ Supportive presence ___ Wedding ___ Other (describe below) Pastoral Comments patient had heart cath this morning and is waiting on results of testing; mother of pt is with him; pt is using humor to cope; pt also connected to a voodoo and explains that paulina in God is very important and is what he relies on for help
--- NOTE | 2021-03-25 15:49 | CRPHASE1_ITS ---
Patient Communication PHII Cardiac Rehab Discussed with Patient:: Yes Guide to Cardiac Rehab Given to Patient:: Yes Cardiac Rehab Facility Choice List Given to Patient:: Yes Choice Program [facility] CR PHII:: Communication Given to CR Choice Program Other:: Communication Given to CR Printed Circuit Boards Router:: Angie Levine Refer Phase II Cardiac Rehab:: Yes Sessions:: 36 sessions - 3 days/wk, 12 weeks Cardiac Rehabilitation Info Cardiac Rehabilitation Program Information: Cardiac Rehabilitation is important for patients like you who are recovering from a heart problem. Cardiac rehabilitation programs are recognized as integral to the continued care of the patient with coronary heart disease. The cardiac rehabilitation program is designed to optimize a patient's physical, psychological, and social functioning. Health home care giver work in cardiac rehabilitation programs and assist you with getting the treatments you need to get stronger and healthier - like exercise, healthy eating habits, and medications. Cardiac rehabilitation has been show to help people with heart problems live longer and have better life enjoyment than people who do not go to cardiac rehabilitation. Please contact the Cardiac Rehabilitation Program at [facility] at in two weeks if you have not heard from them.
--- NOTE | 2021-03-25 15:50 | CRPH1.INSTRU ---
General Education CAD and cardiac anatomy and function:: Patient communicates acknowledgment Explanation of diagnoses and procedures:: Patient communicates acknowledgment Sign/Symptoms of SC:: Patient communicates acknowledgment Antiplatelet therapy: Patient communicates acknowledgment Smoking Patient Nicotine/Smoking Risk Factors Are:: Cigarettes Recommendations Include:: Smoking cessation strategies/Smoking packet, Participation in a smoking cessation program, Previous smoker; encourage continued cessation Nicotine/Smoking Response Code:: Patient communicates acknowledgment Dyslipidemia Patient Dyslipidemia Risk Factors Are:: Total Cholesterol, Triglycerides, HDL, LDL Recommendations Include:: Lipid profile provided, Reviewed NCEP/ATP guidelines, Therapeutic Lifestyle Change dietary guidelines Dyslipidemia Response Code:: Patient communicates acknowledgment Overweight/Obesity Patient Overweight/Obesity Risk Factors Are:: Obesity - > or = 30 Recommendations Include:: Weight loss of 5-10%, Reduced calorie diet, Exercise 5-7 times/week Overweight/Obesity:: Patient communicates acknowledgment Hypertension Patient Hypertension Risk Factors Are:: No documented hx of HTN Diabetes Patient Diabetes Risk Factors Are:: No documented hx of diabetes Metabolic Syndrome Patient Metabolic Syndrome Risk Factors Are [3 of 5]:: Fasting blood sugar > 100 mg/dL, Waist circumference > 35 [female] or 40 [male], Low HDL <40 [male] or < 50 [female] Recommendations Include:: Reinforce compliance to risk factor modifications, Encouraged follow-up with Primary Care Physician Metabolic Syndrome Response Code:: Patient communicates acknowledgment Sedentary Patient Sedentary Risk Factors Are:: Lack of regular exercise Recommendations Include:: Aerobic exercise 5-7 times/week for 20-30 minutes continuously, Benefits of regular exercise, Discussed home walking program, Monitored Outpatient Cardiac Rehab Sedentary Response Code:: Patient communicates acknowledgment Stress Patient Stress Risk Factors Are:: Patient denies stress as a risk factor
--- NOTE | 2021-03-25 16:20 | CASEMGMT ---
STANISLAW ANSARI completed palliative screening tool for [employer]. Patient meets criteria for palliative consult. Hospitalist updated and no consult at this time.
[2021-03-25] MEDS: Atorvastatin Calcium 80 MG Tablet PO (22:53)
[2021-03-25] MEDS: Enoxaparin 40 MG/0.4 ML Syringe SC (22:53)
[2021-03-25] MEDS: TICAGRELOR 90 MG TABLET PO (22:53)
[2021-03-25] MEDS: Gabapentin 100 MG Capsule PO (22:54)
[2021-03-26 02:50] VITALS: PULSE 80
[2021-03-26 03:42] VITALS: BP 134/65; PULSE 74; RESP 14; TEMP 36.2; O2SAT 98
[2021-03-26] MEDS: Levothyroxine 150 MCG Tablet 300 MCG PO (05:12)
[2021-03-26 06:37] LABS: ALB/GLOB Ratio 0.5 RATIO (0.9-2.4); AST(SGOT) 41 U/L (15-37); Alanine Aminotransfer ALT/SGPT 26 U/L (16-61); Albumin, Serum 2.3 g/dL (3.2-5.0); Alkaline Phosphatase 87 U/L (45-117); Anion Gap 4 (5-15); BUN 20 mg/dL (7-18); Calcium,Total 8.2 mg/dL (8.5-10.1); Chloride 109 mmol/L (98-107); EST Glomerular Filtration Rate 84 mL/min (>60); Est Glom Filt Rate - Afr Amer 101 mL/min (>60); Estimated Creatinine Clearance 98.77 ml/min; Globulin 4.4 g/dL (2.2-4.2); Glucose 100 mg/dL (74-106); Potassium 4.8 mmol/L (3.5-5.1); Protein, Total 6.7 g/dL (6.4-8.2); Sodium Level 137 mmol/L (136-145)
[2021-03-26 07:00] VITALS: PULSE 74
[2021-03-26 07:03] LABS: Hematocrit 42.2 % (40-54); Hemoglobin 11.6 g/dL (13.0-16.5); Mean Corp Hgb Conc 27.5 g/dL (32-36); Mean Corpuscular Hgb 24.3 pg (27.0-32.0); Mean Corpuscular Volume 88.5 fL (80-94); Mean Platelet Vol. 9.1 fl (6.2-12.0); Platelet Count 303 K/mm3 (150-450); RBC Distribution Width SD 51.4 fl (35.1-43.9); Red Blood Count 4.77 M/mm3 (4.6-6.2); White Blood Count 13.3 K/mm3 (4.4-11.0)
[2021-03-26 07:20] LABS: Scan Indicated on CBC? Y/N NO
[2021-03-26 07:54] VITALS: O2SAT 94
[2021-03-26 09:42] VITALS: BP 164/85; PULSE 80; RESP 16; TEMP 36.7; O2SAT 97
[2021-03-26] MEDS: Bumetanide 2 MG Tablet PO (09:50)
[2021-03-26] MEDS: Aspirin E.C. 81 MG Tablet PO (09:50)
[2021-03-26] MEDS: TICAGRELOR 90 MG TABLET PO (09:50)
[2021-03-26] MEDS: Losartan Potassium 100 MG Tablet PO (09:50)
[2021-03-26] MEDS: Pantoprazole Sodium 20 MG Tablet PO (09:50)
[2021-03-26] MEDS: predniSONE 20 MG Tablet PO (09:50)
[2021-03-26] MEDS: Doxycycline 100 MG CAPSULE PO (09:51)
[2021-03-26] MEDS: Nystatin Powder 15gm Bottle 1 APPLIC TOPICAL (09:51)
[2021-03-26] MEDS: Enoxaparin 40 MG/0.4 ML Syringe SC (09:52)
--- NOTE | 2021-03-26 10:00 | EKG12_ITS ---
Test Reason : MORNING EKG Blood Pressure : / mmHG Vent. Rate : 075 BPM Atrial Rate : 075 BPM P-R Int : 188 ms QRS Dur : 144 ms QT Int : 412 ms P-R-T Axes : 061 -59 032 degrees QTc Int : 460 ms Normal sinus rhythm Right bundle branch block Left anterior fascicular block Bifascicular block Abnormal ECG Confirmed by CAMERON MEZA, ELLI ([id number]), social media editor ALF RUCKER ([id number]) on 03/27/2021 8:56:41 AM Referred By: MAGUE Confirmed By:ELLI BARNES MD
--- NOTE | 2021-03-26 10:19 | PCM.DC ---
Discharge Instructions Diet Discharge Diet: No restrictions Activity Discharge Activity: Return to Normal Activity Weight Bearing Status: Weight bearing as tolerated Dressing / Incision Call your doctor if you observe: Fever of 101 or Higher, Numbness or Tingling, Shortness of breath, Dizziness, Chest pain, Increased palpitations (irregular heartbeat) and Calf discomfort Follow Up Care Please Follow Up With: Primary care provider When: Within the next two weeks. Test Results: Test results from this visit will be discussed in further detail at your follow-up appointment, if applicable. Discharge Plan Admission Admit Date/Time: 03/22/21 21:35 Primary Reason for Your Visit: Chest pain Attending Provider: Viktoriya Gross Primary Care Provider: Ida Norris Consulting Providers: Won Calvillo Instructions Patient Instructions: Heart Attack Dc, ED Chest Pain, Noncardiac Additional Instructions / Restrictions: Please return at any time. Please feel free to call 911. Please take one baby aspirin daily. Call cardiology in follow-up as soon as possible. Discharge Orders/Prescriptions Prescriptions: New aspirin 81 mg tablet,chewable 81 mg PO DAILY Qty: 30 RF: 0 atorvastatin 40 mg tablet 40 mg PO QHS Qty: 30 RF: 0 Brilinta 90 mg tablet 90 mg PO BID Qty: 60 RF: 0 metoprolol tartrate 25 mg tablet 25 mg PO BID Qty: 60 RF: 0 Continued levothyroxine 100 MCG tablet 300 mcg PO DAILY RF: 0 diazepam [Valium] 10 MG tablet 10 mg PO Q6H PRN (Reason: Anxiety) RF: 0 prednisone 20 MG tablet 20 mg PO DAILY@0800 RF: 0 cyclobenzaprine 10 MG tablet 10 mg PO TID PRN PRN (Reason: Pain 1-10 Or Fever) RF: 0 bumetanide 2 MG tablet 2 mg PO DAILY RF: 0 zinc sulfate 220 MG tablet 220 mg PO DAILY RF: 0 ferrous sulfate 325 MG tablet 325 mg PO DAILY RF: 0 omeprazole 20 MG capsule,delayed release(DR/EC) 20 mg PO BID RF: 0 zolpidem 5 MG tablet 5 mg PO QHS PRN (Reason: Sleep) RF: 0 gabapentin 100 MG capsule 100 mg PO QHS RF: 0 ergocalciferol (vitamin D2) 50,000 UNIT capsule 50,000 unit PO Q7D RF: 0 albuterol sulfate 1 INHALER inhaler 2 puff INHALATION Q6H PRN PRN (Reason: Sob &/Or Wheezing) RF: 0 oxycodone 5 MG tablet 5 mg PO Q6H PRN PRN (Reason: Pain 1-10 Or Fever) RF: 0 ascorbic acid (vitamin C) 500 MG capsule 500 mg PO BID RF: 0 losartan 100 MG tablet 100 mg PO DAILY Qty: 30 RF: 0 doxycycline hyclate 100 MG capsule 100 mg PO BID RF: 0 Changed Pradaxa 150 mg capsule 150 mg PO BID Qty: 0 RF: 0 Discontinued losartan 25 MG tablet 10 mg PO BID RF: 0 rivaroxaban 20 MG tablet 20 mg PO DAILY RF: 0 Pradaxa 150 mg capsule PO RF: 0 Referrals / Follow Up: Ida Norris DO [Primary Care Provider] - Within 2 Weeks Angie Levine MD [STAFF PHYSICIAN] - As soon as possible Disposition Disposition (needs filled in before D/C Order can be placed): Home, Self Care
--- NOTE | 2021-03-26 10:41 | CASEMGMT ---
Pt to be sent home on Brilinta at discharge and med e-scribed to RitÁngel Reyes. Call to Melissa at [facility] and she states pt has no co-pay for Brilinta. Pt updated by Angelic, jose d. Shiela DOVER CM
--- NOTE | 2021-03-26 11:38 | PHA.DC.MC ---
Pharmacy Service has performed discharge medication reconciliation and counseling for this patient. 1. ASPIRIN 81MG PO DAILY 2. ATORVASTATIN 40MG PO QHS 3. METOPROLOL TARTRATE 25MG PO BID 4. TICAGRELOR 90MG PO BID - NOTIFIED PT THAT THIS RX IS COVERED 100% BY INSURANCE PER REGINO MOBLEY The patient's discharge medication list was reviewed for discrepancies and discrepancies were resolved. Spoke to MEENAKSHI Yao regarding losartan. Pt confirmed he takes 25mg PO BID, not 100mg daily, which was also confirmed with fill history. Medication list was updated and given to patient. Home Medications levothyroxine 300 mcg PO DAILY 06/22/13 diazepam [Valium] 10 mg PO Q6H PRN 03/03/16 prednisone 20 mg PO DAILY@0800 04/14/17 albuterol sulfate 2 puff INHALATION Q6H PRN PRN 07/07/20 ascorbic acid (vitamin C) 500 mg PO BID 07/07/20 bumetanide 2 mg PO DAILY 07/07/20 cyclobenzaprine 10 mg PO TID PRN PRN 07/07/20 ergocalciferol (vitamin D2) 50,000 unit PO Q7D 07/07/20 ferrous sulfate 325 mg PO DAILY 07/07/20 gabapentin 100 mg PO QHS 07/07/20 omeprazole 20 mg PO BID 07/07/20 oxycodone 5 mg PO Q6H PRN PRN 07/07/20 zinc sulfate 220 mg PO DAILY 07/07/20 zolpidem 5 mg PO QHS PRN 07/07/20 doxycycline hyclate 100 mg PO BID 03/22/21 Pradaxa 150 mg PO BID #0 cap 03/26/21 aspirin 81 mg PO DAILY #30 tab 03/26/21 atorvastatin 40 mg PO QHS #30 tab 03/26/21 losartan 25 mg PO BIDCM #30 tab 03/26/21 metoprolol tartrate 25 mg PO BID #60 tab 03/26/21 ticagrelor [Brilinta] 90 mg PO BID #60 tab 03/26/21 The patient was counseled on the following discharge medications and changes in medications for homegoing were reviewed. The Reason for Use, instructions for use, and potential side effects were reviewed for all new medications. The patient's questions regarding all of their medications were answered. The patient was able to verbally demonstrate an understanding of their discharge medications.
--- NOTE | 2021-03-26 12:31 | PCM.DC.SUM ---
Documented by User: Maximilian ARRIETA 03/26/21 12:38 Providers Date of Admission: 03/22/21 Primary Care Physician: Dr. Ida Stroud, DO Consultations 03/22/21 22:37 Consult: Cardiology Routine Consulting Provider: Won Calvillo Reason for Consult: elevated troponin EMERGENT Consult: No MD Notified: Yes Date Notified: 03/22/21 Time Notified: 21:32 Method of Notification: Verbal Method of Consult:: In-Person Comments:: Contacted by Dr. Rivera Reason For Visit: NSTEMI Diagnosis Discharge Diagnosis (1) NSTEMI, initial episode of care: Status: Acute Code(s): I21.4 - Non-ST elevation (NSTEMI) myocardial infarction (2) Atherosclerotic heart disease of [place] coronary artery without angina pectoris: Status: Acute Code(s): I25.10 - Atherosclerotic heart disease of [place] coronary artery without angina pectoris (3) History of coronary artery stent placement: Status: Acute Code(s): Z95.5 - Presence of coronary angioplasty implant and graft Medications at Discharge Home Medications levothyroxine 300 mcg PO DAILY 06/22/13 diazepam [Valium] 10 mg PO Q6H PRN 03/03/16 prednisone 20 mg PO DAILY@0800 04/14/17 albuterol sulfate 2 puff INHALATION Q6H PRN PRN 07/07/20 ascorbic acid (vitamin C) 500 mg PO BID 07/07/20 bumetanide 2 mg PO DAILY 07/07/20 cyclobenzaprine 10 mg PO TID PRN PRN 07/07/20 ergocalciferol (vitamin D2) 50,000 unit PO Q7D 07/07/20 ferrous sulfate 325 mg PO DAILY 07/07/20 gabapentin 100 mg PO QHS 07/07/20 omeprazole 20 mg PO BID 07/07/20 oxycodone 5 mg PO Q6H PRN PRN 07/07/20 zinc sulfate 220 mg PO DAILY 07/07/20 zolpidem 5 mg PO QHS PRN 07/07/20 doxycycline hyclate 100 mg PO BID 03/22/21 Pradaxa 150 mg PO BID #0 cap 03/26/21 aspirin 81 mg PO DAILY #30 tab 03/26/21 atorvastatin 40 mg PO QHS #30 tab 03/26/21 losartan 25 mg PO BIDCM #30 tab 03/26/21 metoprolol tartrate 25 mg PO BID #60 tab 03/26/21 ticagrelor [Brilinta] 90 mg PO BID #60 tab 03/26/21 Hospital Course Procedures Cardiac catheterization and Transthoracic echo Summary of Care Provided Minutes Spent on Discharge: 35 Hospital Course: Disposition: Patient to be discharged home, no home health care needs or additional therapies identified. 1) NSTEMI Cardiac catheterization on 03/24 demonstrated 80% smooth distal stenosis of the large right coronary artery and preserved left ventricular systolic function. RCA stented with angioplasty. Recommend continuing medical management. Echocardiogram from 03/25 demonstrated normal LV size, normal LV systolic function and an estimated EF of 65%. Plan; discharge home, follow-up with primary care provider and cardiology within the next 2 weeks, initiate aspirin, statin, Brilinta and metoprolol. Continue Pradaxa and losartan. 2) HTN Continue losartan and metoprolol. Patient seen by Maximilian Perkins PA-C, under the supervision of Dr. Gross Physical Exam Narrative Patient is a 50-year-old male comfortably resting in bed, alert and orient x3. Patient denies any development of symptoms in the past 24 hours. Denies chest pain, shortness of breath, palpitations, hemoptysis, sputum production, fever, chills, N/V/D. Const alert, oriented x3 and no apparent distress HEENT normocephalic, head/scalp atraumatic and hearing grossly normal bilaterally Eyes EOMs intact bilaterally and conjunctivae normal Neck no lymphadenopathy, supple and no JVD Resp normal respiratory effort, no retractions and no use of accessory muscles Cardio regular rate, regular rhythm, no murmurs and no JVD GI normal to inspection, nondistended, normoactive bowel sounds, soft to palpation and non-tender Extremity normal to inspection, full ROM and no clubbing, cyanosis or edema Skin no rashes or lesions noted, no wounds and skin turgor normal Neuro CN's II-XII intact bilaterally Psych affect normal Weight / BMI Weight Weight: 428 lb 0.016 oz Body Mass Index (BMI) 56.5 ABG / Lab / Microbiology Data Result Diagrams: 03/26/21 05:12 03/26/21 05:12 Laboratory: Laboratory Results - last 24 hr 03/26/21 05:12: WBC 13.3 H, RBC 4.77, Hgb 11.6 L, Hct 42.2, MCV 88.5 D, MCH 24.3 L, MCHC 27.5 L, RDW Std Deviation 51.4 H, RDW Coeff of Kris 16.0 H, Plt Count 303, MPV 9.1 03/26/21 05:12: Sodium 137, Potassium 4.8, Chloride 109 H, Carbon Dioxide 24.0, Anion Gap 4 L, BUN 20 H, Creatinine 1.00, Estim Creat Clear Calc 98.77, Est GFR (MDRD) Af Amer 101, Est GFR (MDRD) Non-Af 84, BUN/Creatinine Ratio 20.0, Glucose 100, Calcium 8.2 L, Total Bilirubin 0.40, AST 41 H, ALT 26, Alkaline Phosphatase 87, Total Protein 6.7, Albumin 2.3 L, Globulin 4.4 H, Albumin/Globulin Ratio 0.5 L Radiography Diagnostic Testing: Radiology Impression Echocardiogram 03/23/21 13:10 Interpretation Summary Normal LV size. Left ventricular systolic function is normal. The estimated ejection fraction is 65 %. Contrast injection was performed. Ordering Physician: Won Calvillo Referring Physician: IDA STROUD Performed By: Arabella Palta, CAITLYN, RVT D/C Instructions Discharge Diet: No restrictions Weight Bearing Status: Weight bearing as tolerated Call your doctor if you observe: Fever of 101 or Higher, Numbness or Tingling, Shortness of breath, Dizziness, Chest pain, Increased palpitations (irregular heartbeat) and Calf discomfort Please Follow Up With: Primary care provider When: Within the next two weeks. Meaningful Use Info Meaningful Use Diagnoses (Choose all that apply): None applicable Discharge Plan Admission Admit Date/Time: 03/22/21 21:35 Primary Reason for Your Visit: Chest pain Attending Provider: Viktoriya Gross Primary Care Provider: Ida Stroud Consulting Providers: Won Calvillo Instructions Patient Instructions: Heart Attack Dc, ED Chest Pain, Noncardiac Additional Instructions / Restrictions: Please return at any time. Please feel free to call 911. Please take one baby aspirin daily. Call cardiology in follow-up as soon as possible. Discharge Orders/Prescriptions Prescriptions: New aspirin 81 mg tablet,chewable 81 mg PO DAILY Qty: 30 RF: 0 atorvastatin 40 mg tablet 40 mg PO QHS Qty: 30 RF: 0 Brilinta 90 mg tablet 90 mg PO BID Qty: 60 RF: 0 metoprolol tartrate 25 mg tablet 25 mg PO BID Qty: 60 RF: 0 Continued levothyroxine 100 MCG tablet 300 mcg PO DAILY RF: 0 diazepam [Valium] 10 MG tablet 10 mg PO Q6H PRN (Reason: Anxiety) RF: 0 prednisone 20 MG tablet 20 mg PO DAILY@0800 RF: 0 cyclobenzaprine 10 MG tablet 10 mg PO TID PRN PRN (Reason: Pain 1-10 Or Fever) RF: 0 bumetanide 2 MG tablet 2 mg PO DAILY RF: 0 zinc sulfate 220 MG tablet 220 mg PO DAILY RF: 0 ferrous sulfate 325 MG tablet 325 mg PO DAILY RF: 0 omeprazole 20 MG capsule,delayed release(DR/EC) 20 mg PO BID RF: 0 zolpidem 5 MG tablet 5 mg PO QHS PRN (Reason: Sleep) RF: 0 gabapentin 100 MG capsule 100 mg PO QHS RF: 0 ergocalciferol (vitamin D2) 50,000 UNIT capsule 50,000 unit PO Q7D RF: 0 albuterol sulfate 1 INHALER inhaler 2 puff INHALATION Q6H PRN PRN (Reason: Sob &/Or Wheezing) RF: 0 oxycodone 5 MG tablet 5 mg PO Q6H PRN PRN (Reason: Pain 1-10 Or Fever) RF: 0 ascorbic acid (vitamin C) 500 MG capsule 500 mg PO BID RF: 0 doxycycline hyclate 100 MG capsule 100 mg PO BID RF: 0 Changed Pradaxa 150 mg capsule 150 mg PO BID Qty: 0 RF: 0 losartan 100 MG tablet 25 mg PO BIDCM Qty: 30 RF: 0 Discontinued losartan 25 MG tablet 10 mg PO BID RF: 0 rivaroxaban 20 MG tablet 20 mg PO DAILY RF: 0 Pradaxa 150 mg capsule PO RF: 0 Referrals / Follow Up: Ida Stroud DO [Primary Care Provider] - 04/03/21 8:30 am (This will be an in office visit now.) Angie Levine MD [STAFF PHYSICIAN] - 04/30/21 10:30 am Disposition Disposition (needs filled in before D/C Order can be placed): Home, Self Care Documented by User: Dr. Viktoriya Gross DO 03/26/21 13:59 Providers Date of Admission: 03/22/21 Reason For Visit: NSTEMI Medications at Discharge Home Medications levothyroxine 300 mcg PO DAILY 06/22/13 diazepam [Valium] 10 mg PO Q6H PRN 03/03/16 prednisone 20 mg PO DAILY@0800 04/14/17 albuterol sulfate 2 puff INHALATION Q6H PRN PRN 07/07/20 ascorbic acid (vitamin C) 500 mg PO BID 07/07/20 bumetanide 2 mg PO DAILY 07/07/20 cyclobenzaprine 10 mg PO TID PRN PRN 07/07/20 ergocalciferol (vitamin D2) 50,000 unit PO Q7D 07/07/20 ferrous sulfate 325 mg PO DAILY 07/07/20 gabapentin 100 mg PO QHS 07/07/20 omeprazole 20 mg PO BID 07/07/20 oxycodone 5 mg PO Q6H PRN PRN 07/07/20 zinc sulfate 220 mg PO DAILY 07/07/20 zolpidem 5 mg PO QHS PRN 07/07/20 doxycycline hyclate 100 mg PO BID 03/22/21 Pradaxa 150 mg PO BID #0 cap 03/26/21 aspirin 81 mg PO DAILY #30 tab 03/26/21 atorvastatin 40 mg PO QHS #30 tab 03/26/21 losartan 25 mg PO BIDCM #30 tab 03/26/21 metoprolol tartrate 25 mg PO BID #60 tab 03/26/21 ticagrelor [Brilinta] 90 mg PO BID #60 tab 03/26/21 Hospital Course Operations None Procedures 2-D Echocardiogram and Cardiac catheterization Summary of Care Provided Minutes Spent on Discharge: 38 Hospital Course: This patient was seen in conjunction with MEENAKSHI Beckett. The following is representation my independent history and physical examination. Please see below for any addendum the above. Mr. Cruz is a 50-year-old white male presents to emergency department [facility] with left arm pain. He reported on admission that his pain started from his elbow to his shoulder and it radiated to his left scapula. He described the pain on presentation as deep and ripping. He reported it had occurred multiple times prior to his presentation and has progressively gotten worse. He denied any other associated symptoms. He was admitted to PCU for further cardiac work-up. His cardiac enzymes were cycled and he had a significant trend upward trend in his high-sensitivity troponin with a max of 2033. He was evaluated by cardiology and a cardiac catheterization was recommended. Cardiac catheterization was done on 03/25/2021. His cardiac catheterization showed severe single-vessel disease to the mid to distal RCA with an 80% lesion and a preserved ejection fraction. PCI with FORTUNATO was performed at that time. The patient was started on aspirin, Brilinta, statin, and a beta-tejinder. He continued his home losartan. Prescriptions were written. An echocardiogram was performed to better assess cardiac function and showed normal LV size and systolic function with an EF of 65%. He was discharged in stable condition on 03/26/2021. He was strongly encouraged to stop smoking. He will continue therapy triple therapy with Brilinta, aspirin, and Pradaxa until instructed otherwise by cardiology. He has follow-up with cardiology established. He is to follow-up with his primary care physician in 1 week. I do suspect the patient likely suffers from obstructive sleep apnea and would recommend outpatient sleep study and titration. Discharge diagnoses: NSTEMI CAD Chronic leukocytosis Chronic anemia Super morbid obesity DM-2 RA IBS History of tobacco abuse Hypertension Hyperlipidemia Chronic hypoxic/hypercapnic respiratory failure History of Chanel's gangrene Vitamin D deficiency Hypothyroidism GERD Anxiety disorder/panic attacks Physical Exam Const alert, oriented x3 and no apparent distress Constitutional Narrative: Morbidly obese middle-aged white male sitting up on the edge of the bed, watching television, appears comfortable, anxious to go home General Appearance: cooperative, comfortable, well kempt and well developed Exam Limitations: no limitations Nutritional Appearance: morbidly obese HEENT normocephalic, head/scalp atraumatic, hearing grossly normal bilaterally, moist oral mucous membranes and dentition normal HEENT Narrative: Mallampati 4 Eyes PERRL, EOMs intact bilaterally and conjunctivae normal Neck no lymphadenopathy, supple and no JVD Neck Narrative: Short thick neck Lymph Lymphatic: no lymphadenopathy noted and no lymphedema noted Chest inspection of chest normal and palpation of chest normal Resp normal respiratory effort, no retractions, no use of accessory muscles and clear to auscultation bilaterally Resp Narrative: Distant but clear Auscultation: Negative for crackles, rales, rhonchi or wheezes Cardio regular rate, regular rhythm, S1 normal heart sound, S2 normal heart sound, no murmurs, no rub, no gallops, no clicks and no JVD GI normal to inspection, nondistended, normoactive bowel sounds, soft to palpation, non-tender and non-distended Back/Spine no CVA tenderness Back/Spine Narrative: Mild kyphoscoliosis and decreased lumbar lordotic curve Extremity no clubbing, cyanosis or edema Skin no rashes or lesions noted, no wounds, skin turgor normal and no jaundice Skin Narrative: Scattered ecchymosis bilateral upper extremities related IV placement Neuro oriented x3, CN's II-XII intact bilaterally, moves all extremities and no focal motor deficits Sensorium / Orientation: awake and alert Speech: speech normal Motor Exam: strength 5/5 throughout Psych affect normal ABG / Lab / Microbiology Data Result Diagrams: 03/26/21 05:12 03/26/21 05:12 Meaningful Use Info Meaningful Use Diagnoses (Choose all that apply): None applicable Discharge Plan Admission Admit Date/Time: 03/22/21 21:35 Primary Reason for Your Visit: Chest pain Attending Provider: Viktoriya Gross Primary Care Provider: Ida Stroud Consulting Providers: Won Calvillo Instructions Patient Instructions: Heart Attack Dc, ED Chest Pain, Noncardiac Additional Instructions / Restrictions: Please return at any time. Please feel free to call 911. Please take one baby aspirin daily. Call cardiology in follow-up as soon as possible. Discharge Orders/Prescriptions Prescriptions: New aspirin 81 mg tablet,chewable 81 mg PO DAILY Qty: 30 RF: 0 atorvastatin 40 mg tablet 40 mg PO QHS Qty: 30 RF: 0 Brilinta 90 mg tablet 90 mg PO BID Qty: 60 RF: 0 metoprolol tartrate 25 mg tablet 25 mg PO BID Qty: 60 RF: 0 Continued levothyroxine 100 MCG tablet 300 mcg PO DAILY RF: 0 diazepam [Valium] 10 MG tablet 10 mg PO Q6H PRN (Reason: Anxiety) RF: 0 prednisone 20 MG tablet 20 mg PO DAILY@0800 RF: 0 cyclobenzaprine 10 MG tablet 10 mg PO TID PRN PRN (Reason: Pain 1-10 Or Fever) RF: 0 bumetanide 2 MG tablet 2 mg PO DAILY RF: 0 zinc sulfate 220 MG tablet 220 mg PO DAILY RF: 0 ferrous sulfate 325 MG tablet 325 mg PO DAILY RF: 0 omeprazole 20 MG capsule,delayed release(DR/EC) 20 mg PO BID RF: 0 zolpidem 5 MG tablet 5 mg PO QHS PRN (Reason: Sleep) RF: 0 gabapentin 100 MG capsule 100 mg PO QHS RF: 0 ergocalciferol (vitamin D2) 50,000 UNIT capsule 50,000 unit PO Q7D RF: 0 albuterol sulfate 1 INHALER inhaler 2 puff INHALATION Q6H PRN PRN (Reason: Sob &/Or Wheezing) RF: 0 oxycodone 5 MG tablet 5 mg PO Q6H PRN PRN (Reason: Pain 1-10 Or Fever) RF: 0 ascorbic acid (vitamin C) 500 MG capsule 500 mg PO BID RF: 0 doxycycline hyclate 100 MG capsule 100 mg PO BID RF: 0 Changed Pradaxa 150 mg capsule 150 mg PO BID Qty: 0 RF: 0 losartan 100 MG tablet 25 mg PO BIDCM Qty: 30 RF: 0 Discontinued losartan 25 MG tablet 10 mg PO BID RF: 0 rivaroxaban 20 MG tablet 20 mg PO DAILY RF: 0 Pradaxa 150 mg capsule PO RF: 0 Referrals / Follow Up: Ida Stroud DO [Primary Care Provider] - 04/03/21 8:30 am (This will be an in office visit now.) Angie Levine MD [STAFF PHYSICIAN] - 04/30/21 10:30 am Disposition Disposition (needs filled in before D/C Order can be placed): Home, Self Care Charges/Coding Visit Charges Inpatient E&M: 93778 Disch Hosp
--- NOTE | 2021-03-27 14:18 | CASEMGMT ---
STANISLAW ANSARI Discharge Follow-up Phone Call: JOLIEAidan: Rosenda Strata: 3 Call Date: 03/27/21 Discharge Date: 03/26/21 Time of Call: 1415 Duration: 5 min Admitting Diagnosis: NSTEMI STANISLAW ANSARI completed follow-up phone call after recent hospitalization. Patient states he is doing well. 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 Patient was able to fill prescriptions without any issues. Patient had questions regarding home medications that were not changed. STANISLAW ANSARI advised patient to call PCP office to clarify those medications. Patient voiced understanding.
== END 2021-03-26 11:20 | disposition home or self-care (01) | DRG 174 ==
LOC: ED 20:09 → PCU 21:39
PROVIDERS: Physician Assistant; Specialist; Admitting Provider Hospitalist; Emergency Provider Emergency Medicine; PCP Family Medicine; Visit Provider Internal Medicine
DX: I21.4 Non-ST elevation (NSTEMI) myocardial infarction (principal); I25.10 Atherosclerotic heart disease of native coronary artery without angina pectoris; I11.9 Hypertensive heart disease without heart failure; G47.33 Obstructive sleep apnea (adult) (pediatric); F17.210 Nicotine dependence, cigarettes, uncomplicated; D72.829 Elevated white blood cell count, unspecified; D64.9 Anemia, unspecified; E11.9 Type 2 diabetes mellitus without complications; E78.5 Hyperlipidemia, unspecified; M06.9 Rheumatoid arthritis, unspecified; K58.9 Irritable bowel syndrome, unspecified; J96.11 Chronic respiratory failure with hypoxia; J96.12 Chronic respiratory failure with hypercapnia; E55.9 Vitamin D deficiency, unspecified; E03.9 Hypothyroidism, unspecified; J44.9 Chronic obstructive pulmonary disease, unspecified; K21.9 Gastro-esophageal reflux disease without esophagitis; F41.0 Panic disorder [episodic paroxysmal anxiety]; E66.01 Morbid (severe) obesity due to excess calories; Z68.43 Body mass index [BMI] 50.0-59.9, adult; Z79.01 Long term (current) use of anticoagulants; Z79.82 Long term (current) use of aspirin; Z79.890 Hormone replacement therapy; Z79.899 Other long term (current) drug therapy; Z86.718 Personal history of other venous thrombosis and embolism; Z82.49 Family history of ischemic heart disease and other diseases of the circulatory system
CPT/HCPCS: 36415; 71045; 73060; 80048; 80053; 80061; 84484; 85025; 85027; 92928; 93005; 93306; 93458; 97802; 99152; 99153; 99284; 99406; C1874; J7030; J7040; Q9957; Q9967; A4216; C1769; C1887; C1894; C8929; C9600; J1327; J3490

== ENCOUNTER → 2021-07-16 04:45 | Outpatient (CLI) | payer MEDICAID, SELFPAY ==
[2021-07-16 12:31] LABS: Erythrocyte Sedimentation Rate 70 mm/hr (0-20)
[2021-07-16 12:33] LABS: Absolute Lymphocyte Count 4.86 X10^3/uL (0.83-4.51); Absolute Neutrophil Count 9.6 X10^3/uL (2.0-7.7); Basophil% 0.6 % (0-1); Eosinophil# 0.35 X10^3/uL; Eosinophils% 2.2 % (0-5); Hematocrit 44.4 % (40-54); Hemoglobin 12.6 g/dL (13.0-16.5); Lymphocyte # 4.86 X10^3/ul (0.83-4.51); Lymphocyte % 31.1 % (19-41); Mean Corp Hgb Conc 28.4 g/dL (32-36); Mean Corpuscular Hgb 23.5 pg (27.0-32.0); Mean Corpuscular Volume 82.8 fL (80-94); Mean Platelet Vol. 9.8 fl (6.2-12.0); Monocyte# 0.64 X10^3/uL; Monocyte% 4.1 % (0-10); NRBC Flagged by Analyzer 0 % (0-5); Neutrophil # 9.59 X10^3/uL (2.7-7.7); Neutrophil % 61.3 % (47-70); Platelet Count 338 K/mm3 (150-450); RBC Distribution Width CV 18.6 % (11.6-14.6); RBC Distribution Width SD 53.8 fl (35.1-43.9); Red Blood Count 5.36 M/mm3 (4.6-6.2); White Blood Count 15.7 K/mm3 (4.4-11.0)
[2021-07-16 12:53] LABS: BNP,B-Type NATRIURETIC PEPTIDE 15.9 pg/mL (0-100)
[2021-07-16 13:39] LABS: ALB/GLOB Ratio 0.7 RATIO (0.9-2.4); AST(SGOT) 14 U/L (15-37); Alanine Aminotransfer ALT/SGPT 24 U/L (16-61); Alkaline Phosphatase 104 U/L (45-117); Anion Gap 6 (5-15); BUN 15 mg/dL (7-18); BUN/Creat Ratio 12.4 RATIO (10-20); Calcium,Total 8.9 mg/dL (8.5-10.1); Chloride 103 mmol/L (98-107); Creatinine, Serum 1.21 mg/dL (0.70-1.30); EST Glomerular Filtration Rate 67 mL/min (>60); Est Glom Filt Rate - Afr Amer 81 mL/min (>60); Free T3 < 0.5 pg/mL (2.18-3.98); Globulin 4.3 g/dL (2.2-4.2); Glucose 114 mg/dL (74-106); Potassium 4.2 mmol/L (3.5-5.1); Protein, Total 7.3 g/dL (6.4-8.2); Sodium Level 140 mmol/L (136-145); T4 Free Direct 0.17 ng/dL (0.76-1.46)
== END ==
PROVIDERS: PCP Family Medicine; Visit Provider Family Medicine
DX: E03.9 Hypothyroidism, unspecified (principal); M06.9 Rheumatoid arthritis, unspecified; I50.810 Right heart failure, unspecified; D64.9 Anemia, unspecified; Z51.81 Encounter for therapeutic drug level monitoring
CPT/HCPCS: 36415; 80053; 83880; 84439; 84443; 84481; 85025; 85652; 86140

== ENCOUNTER 2021-09-10 09:35 | Outpatient (CLI) | payer MEDICAID, SELFPAY ==
[2021-09-10 12:01] LABS: International Normalized Ratio 1.1; Prothrombin Time (Protime)PT. 13.5 SECONDS (11.7-14.9)
[2021-09-10 12:07] LABS: Erythrocyte Sedimentation Rate 53 mm/hr (0-20)
[2021-09-10 12:08] LABS: Vitamin D,25 Hydroxy 24.3 ng/mL
[2021-09-10 12:10] LABS: Absolute Lymphocyte Count 3.42 X10^3/uL (0.83-4.51); Basophil# 0.07 X10^3/uL; Basophil% 0.4 % (0-1); Eosinophil# 0.42 X10^3/uL; Eosinophils% 2.7 % (0-5); Hematocrit 40.3 % (40-54); Hemoglobin 11.4 g/dL (13.0-16.5); Lymphocyte # 3.42 X10^3/ul (0.83-4.51); Lymphocyte % 21.8 % (19-41); Mean Corp Hgb Conc 28.3 g/dL (32-36); Mean Corpuscular Hgb 23.8 pg (27.0-32.0); Mean Corpuscular Volume 84.3 fL (80-94); Mean Platelet Vol. 9.6 fl (6.2-12.0); Monocyte# 0.72 X10^3/uL; Monocyte% 4.6 % (0-10); NRBC Flagged by Analyzer 0 % (0-5); Neutrophil # 10.99 X10^3/uL (2.7-7.7); Neutrophil % 69.9 % (47-70); Platelet Count 395 K/mm3 (150-450); RBC Distribution Width CV 16.6 % (11.6-14.6); Red Blood Count 4.78 M/mm3 (4.6-6.2); White Blood Count 15.7 K/mm3 (4.4-11.0)
[2021-09-10 12:46] LABS: ALB/GLOB Ratio 0.6 RATIO (0.9-2.4); AST(SGOT) 9 U/L (15-37); Alanine Aminotransfer ALT/SGPT 19 U/L (16-61); Albumin, Serum 2.7 g/dL (3.2-5.0); Alkaline Phosphatase 117 U/L (45-117); Anion Gap 8 (5-15); BUN 17 mg/dL (7-18); BUN/Creat Ratio 14.4 RATIO (10-20); Calcium,Total 8.5 mg/dL (8.5-10.1); Chloride 102 mmol/L (98-107); Creatinine, Serum 1.18 mg/dL (0.70-1.30); EST Glomerular Filtration Rate 69 mL/min (>60); Est Glom Filt Rate - Afr Amer 83 mL/min (>60); Ferritin 15 ng/mL (26-388); Free T3 2.3 pg/mL (2.18-3.98); Globulin 4.2 g/dL (2.2-4.2); Glucose 176 mg/dL (74-106); Iron 28 ug/dL (65-175); Potassium 3.8 mmol/L (3.5-5.1); Protein, Total 6.9 g/dL (6.4-8.2); Sodium Level 139 mmol/L (136-145); T4 Free Direct 1.25 ng/dL (0.76-1.46)
[2021-09-10 13:38] LABS: Hemoglobin A1c 7.5 % (3.8-5.6)
== END 2021-09-10 23:59 | disposition home or self-care (01) ==
LOC: LAB 09:37
PROVIDERS: PCP Family Medicine; Visit Provider Family Medicine
DX: E03.9 Hypothyroidism, unspecified (principal); M06.9 Rheumatoid arthritis, unspecified; I82.409 Acute embolism and thrombosis of unspecified deep veins of unspecified lower extremity; E11.9 Type 2 diabetes mellitus without complications; E55.9 Vitamin D deficiency, unspecified; Z79.01 Long term (current) use of anticoagulants; D50.9 Iron deficiency anemia, unspecified
CPT/HCPCS: P9604; 36415; 80053; 82306; 82728; 83036; 83540; 84439; 84443; 84481; 85025; 85610; 85652; 86140

== ENCOUNTER 2021-11-20 08:58 | Outpatient (CLI) | payer MEDICAID, SELFPAY ==
[2021-11-20 12:22] LABS: Absolute Lymphocyte Count 2.29 X10^3/uL (0.83-4.51); Absolute Neutrophil Count 11.4 X10^3/uL (2.0-7.7); Basophil# 0.06 X10^3/uL; Basophil% 0.4 % (0-1); Eosinophil# 0.36 X10^3/uL; Eosinophils% 2.4 % (0-5); Erythrocyte Sedimentation Rate 63 mm/hr (0-20); Hematocrit 36.6 % (40-54); Hemoglobin 10.1 g/dL (13.0-16.5); Lymphocyte # 2.29 X10^3/ul (0.83-4.51); Lymphocyte % 15.3 % (19-41); Mean Corp Hgb Conc 27.6 g/dL (32-36); Mean Corpuscular Hgb 21.9 pg (27.0-32.0); Mean Corpuscular Volume 79.4 fL (80-94); Mean Platelet Vol. 8.9 fl (6.2-12.0); Monocyte# 0.69 X10^3/uL; Monocyte% 4.6 % (0-10); NRBC Flagged by Analyzer 0 % (0-5); Neutrophil % 76.5 % (47-70); Platelet Count 374 K/mm3 (150-450); RBC Distribution Width CV 16.3 % (11.6-14.6); RBC Distribution Width SD 46.4 fl (35.1-43.9); Red Blood Count 4.61 M/mm3 (4.6-6.2); White Blood Count 14.9 K/mm3 (4.4-11.0)
[2021-11-20 12:51] LABS: ALB/GLOB Ratio 0.6 RATIO (0.9-2.4); AST(SGOT) 6 U/L (15-37); Alanine Aminotransfer ALT/SGPT 15 U/L (16-61); Albumin, Serum 2.5 g/dL (3.2-5.0); Alkaline Phosphatase 98 U/L (45-117); Anion Gap 4 (5-15); BUN 18 mg/dL (7-18); BUN/Creat Ratio 17.5 RATIO (10-20); Calcium,Total 8.6 mg/dL (8.5-10.1); Chloride 102 mmol/L (98-107); Creatinine, Serum 1.03 mg/dL (0.70-1.30); EST Glomerular Filtration Rate 81 mL/min (>60); Est Glom Filt Rate - Afr Amer 97 mL/min (>60); Ferritin 18 ng/mL (26-388); Free T3 2.5 pg/mL (2.18-3.98); Globulin 4.5 g/dL (2.2-4.2); Glucose 163 mg/dL (74-106); Iron 20 ug/dL (65-175); Potassium 3.9 mmol/L (3.5-5.1); Sodium Level 139 mmol/L (136-145); T4 Free Direct 1.37 ng/dL (0.76-1.46)
[2021-11-20 13:02] LABS: BNP,B-Type NATRIURETIC PEPTIDE 19.9 pg/mL (0-100)
== END 2021-11-20 23:59 | disposition home or self-care (01) ==
LOC: LAB 08:59
PROVIDERS: PCP Family Medicine; Visit Provider Family Medicine
DX: E03.9 Hypothyroidism, unspecified (principal); M06.9 Rheumatoid arthritis, unspecified; I50.43 Acute on chronic combined systolic (congestive) and diastolic (congestive) heart failure; E11.9 Type 2 diabetes mellitus without complications; E61.1 Iron deficiency; Z51.81 Encounter for therapeutic drug level monitoring
CPT/HCPCS: 36415; 80053; 82728; 83540; 83880; 84439; 84443; 84481; 85025; 85652; 86140

== ENCOUNTER 2021-12-29 18:36 | Emergency (ER) | payer MEDICAID, SELFPAY ==
[2021-12-29 18:36] VITALS: BP 148/66; PULSE 118; RESP 30; TEMP 36.8; O2SAT 93; BMI 66.9
--- NOTE | 2021-12-29 19:00 | EDS_ITS ---
HPI History of Present Illness Chief Complaint: Wound Narrative Narrative: 51-year-old male presenting with left leg pain. He describes it as burning. This has been going on for couple of days. Patient has chronic lower extremity edema and seems wound care. He states that its been weeping as well. Patient states that he does not have any systemic signs or symptoms and feels otherwise well. He states it hurts worse when he ambulates. Its better when he rests. He has tried compression. He cannot take anti-inflammatories because he is on oral anticoagulation. Tylenol does not seem to help. No trauma. [facility] Medical History Abscess of deep perineal space Anemia Anxiety Atherosclerotic heart disease of [place] coronary artery without angina pectoris Chest pain Chronic hypoxemic respiratory failure Chronic pain Chronic prescription benzodiazepine use Chronic steroid use Colon polyps COPD (chronic obstructive pulmonary disease) DVT (deep venous thrombosis) Essential hypertension Family history of premature CAD GERD (gastroesophageal reflux disease) Goiter History of Chanel's gangrene HLD (hyperlipidemia) Hypothyroidism IBS (irritable bowel syndrome) Intertrigo Kidney stones Left against medical advice Non-healing surgical wound NSTEMI, initial episode of care On home oxygen therapy BERT (obstructive sleep apnea) Pain in scapula Rheumatoid arthritis Sleep apnea Smoker Super obesity Superficial thrombophlebitis of leg Thrush Type 2 diabetes mellitus Ulcer of scrotum Home Medications levothyroxine 300 mcg PO DAILY 06/22/13 [History Last Taken 03/22/21 09:00] diazepam [Valium] 10 mg PO Q6H PRN 03/03/16 [History Last Taken 03/22/21 18:00] albuterol sulfate 2 puff INHALATION Q6H PRN PRN 07/07/20 [History Last Taken 03/22/21 09:00] ascorbic acid (vitamin C) 500 mg PO BID 07/07/20 [History Last Taken Unknown] ferrous sulfate 325 mg PO DAILY 07/07/20 [History Last Taken Unknown] gabapentin 100 mg PO QHS 07/07/20 [History Last Taken 03/21/21 22:00] omeprazole 20 mg PO BID 07/07/20 [History Last Taken 03/22/21 09:00] zolpidem 5 mg PO QHS PRN 07/07/20 [History Last Taken 03/21/21 22:00] doxycycline hyclate 100 mg PO BID 03/22/21 [History Last Taken 03/22/21 09:00] Pradaxa 150 mg PO BID #0 cap 03/26/21 [Rx Last Taken 03/21/21 09:00] aspirin 81 mg PO DAILY #30 tab 03/26/21 [Rx Last Taken Unknown] atorvastatin 40 mg tablet 40 mg PO QHS #30 tab 05/01/21 [Rx Last Taken Unknown] losartan 25 mg tablet 25 mg PO BIDCM #30 tab 05/01/21 [Rx Last Taken Unknown] metoprolol tartrate 25 mg tablet 25 mg PO BID #60 tab 05/01/21 [Rx Last Taken Unknown] ticagrelor 90 mg tablet 90 mg PO BID #60 tab 05/01/21 [Rx Last Taken Unknown] bumetanide 1 mg tablet 1 mg PO DAILY tab 09/06/21 [History Last Taken Unknown] cyanocobalamin (vitamin B-12) 1,000 mcg/mL injection solution 1,000 mcg IM QWEEK ml 09/06/21 [History Last Taken Unknown] furosemide 40 mg tablet See Rx Instructions PO .COMPLEX 09/06/21 [History Last Taken Unknown] glipizide 2.5 mg tablet, extended release 24 hr ea PO 09/06/21 [History Last Taken Unknown] potassium chloride 10 mEq capsule,extended release 10 meq PO BID 09/06/21 [History Last Taken Unknown] doxycycline hyclate 100 mg PO BID #14 cap 12/29/21 [Rx Last Taken Unknown] hydrocodone-acetaminophen 1 tab PO Q6H PRN 3 Days #12 tab 12/29/21 [Rx Last Taken Unknown] Allergy/AdvReac Type Severity Reaction Status Date / Time Penicillins Allergy Hives Verified 12/29/21 18:40 Sulfa (Sulfonamide Allergy Hives Verified 12/29/21 18:40 Antibiotics) etanercept [From Enbrel] AdvReac Swelling Verified 12/29/21 18:40 rivaroxaban [From Xarelto] AdvReac Nausea Verified 12/29/21 18:40 warfarin sodium AdvReac Nausea Verified 12/29/21 18:40 [From Coumadin] Family History Other Cancer Heart disease Kidney disease Surgical History History of coronary artery stent placement (03/25/21) Social History Smoking Status: Heavy Smoker (>10/day) ROS ROS ED Constitutional Constitutional ED: Denies chills or fever(s) Eyes Eyes: Denies blurry vision or diplopia ENT ENT ED: Denies rhinorrhea or sore throat Cardiovascular Cardiovascular: Denies chest pain or palpitations Respiratory/Chest Respiratory/Chest: Denies cough or dyspnea Gastrointestinal Gastrointestinal: Denies abdominal pain or nausea Genitourinary Genitourinary ED: Denies dysuria or hematuria Musculoskeletal Musculoskeletal: Reports other Details: Left leg pain Integumentary Reports rash Neurologic Neurologic: Denies headache(s) Psychiatric Psychiatric: Denies anxiety or depression EXAM Physical Exam Const Vital Signs: 12/29/21 18:36 Temperature 98.2 F Temperature Source Temporal Pulse Rate 118 H Respiratory Rate 30 H Blood Pressure 148/66 H Blood Pressure Mean 93 Pulse Ox 93 Oxygen Delivery Method Room Air Positive well nourished General Appearance ED: NAD HEENT normocephalic and atraumatic Eyes PERRL Cardio regular rate and regular rhythm GI non-tender Palpation: soft Neuro oriented x3 and CN's II-XII intact bilaterally Sensorium / Orientation: alert Psych mental status grossly normal Skin Skin Narrative: Erythema and pain to the left tibia. No crepitance. No weeping visualized. MDM MDM MDM Narrative Medical decision making narrative: Patient presenting with cellulitic change to the left leg. This is a new issue. Patient does have chronic lower extremity edema. He states he feels otherwise well. He states that for problems in the past he has had doxycycline which is clear for infection. I do not believe the patient needs blood work or imaging. Patient will be started on doxycycline and requested for pain because he cannot take anti-inflammatories. I will provide him with some [place] for home. Patient stable for discharge. He is to follow-up with the wound care clinic or return for new or worsening symptoms. Pression: 1. Left lower extremity cellulitis Lab Data Attestation: I reviewed the patient's lab results. Discharge Plan Triage Chief Complaint: Wound ED Provider: Ishaan Bryson Dx/Rx/DC Orders Instructions: ED Cellulitis Prescriptions: New doxycycline hyclate 100 mg capsule 100 mg PO BID Qty: 14 RF: 0 hydrocodone-acetaminophen 5-325 mg tablet 1 tab PO Q6H PRN (Reason: pain) 3 Days Qty: 12 RF: 0 No Action Brilinta 90 mg tablet 90 mg PO BID Qty: 60 RF: 11 metoprolol tartrate 25 mg tablet 25 mg PO BID Qty: 60 RF: 11 losartan 25 mg tablet 25 mg PO BIDCM Qty: 30 RF: 11 atorvastatin 40 mg tablet 40 mg PO QHS Qty: 30 RF: 11 cyanocobalamin (vitamin B-12) 1,000 mcg/mL solution 1,000 mcg IM QWEEK RF: 0 furosemide 40 mg tablet See Rx Instructions PO .COMPLEX RF: 0 bumetanide 1 mg tablet 1 mg PO DAILY RF: 0 glipizide 2.5 mg tablet extended release 24hr PO RF: 0 potassium chloride 10 mEq capsule, extended release 10 meq PO BID RF: 0 levothyroxine 100 MCG tablet 300 mcg PO DAILY RF: 0 diazepam [Valium] 10 MG tablet 10 mg PO Q6H PRN (Reason: Anxiety) RF: 0 ferrous sulfate 325 MG tablet 325 mg PO DAILY RF: 0 omeprazole 20 MG capsule,delayed release(DR/EC) 20 mg PO BID RF: 0 zolpidem 5 MG tablet 5 mg PO QHS PRN (Reason: Sleep) RF: 0 gabapentin 100 MG capsule 100 mg PO QHS RF: 0 albuterol sulfate 1 INHALER inhaler 2 puff INHALATION Q6H PRN PRN (Reason: Sob &/Or Wheezing) RF: 0 ascorbic acid (vitamin C) 500 MG capsule 500 mg PO BID RF: 0 doxycycline hyclate 100 MG capsule 100 mg PO BID RF: 0 aspirin 81 mg tablet,chewable 81 mg PO DAILY Qty: 30 RF: 0 Pradaxa 150 mg capsule 150 mg PO BID Qty: 0 RF: 0 Primary Care Provider: Ida Norris Referrals: Ida Norris DO [Primary Care Provider] - Disposition Disposition: Home, Self Care
[2021-12-29] MEDS: HYDROcodone Bitartrate/Apap 5/325 Tablet PO (19:13)
[2021-12-29] MEDS: Doxycycline 100 MG CAPSULE PO (19:13)
[2021-12-29 20:37] VITALS: BP 140/65; PULSE 89; RESP 24; O2SAT 96
== END 2021-12-29 20:58 | disposition home or self-care (01) ==
PROVIDERS: Emergency Provider Student in an Organized Health Care Education/Training Program; PCP Family Medicine; Visit Provider Student in an Organized Health Care Education/Training Program
DX: L03.116 Cellulitis of left lower limb (principal); M06.9 Rheumatoid arthritis, unspecified; J44.9 Chronic obstructive pulmonary disease, unspecified; E66.01 Morbid (severe) obesity due to excess calories; Z68.44 Body mass index [BMI] 60.0-69.9, adult; E11.9 Type 2 diabetes mellitus without complications; F17.200 Nicotine dependence, unspecified, uncomplicated; I25.10 Atherosclerotic heart disease of native coronary artery without angina pectoris; R60.0 Localized edema; I10 Essential (primary) hypertension; Z86.718 Personal history of other venous thrombosis and embolism; K21.9 Gastro-esophageal reflux disease without esophagitis; E78.5 Hyperlipidemia, unspecified; G47.33 Obstructive sleep apnea (adult) (pediatric); E03.9 Hypothyroidism, unspecified; Z79.890 Hormone replacement therapy; Z79.899 Other long term (current) drug therapy; Z79.82 Long term (current) use of aspirin; F41.9 Anxiety disorder, unspecified
CPT/HCPCS: 99283

== ENCOUNTER → 2022-01-31 | Outpatient (CLI) | payer MEDICAID, SELFPAY ==
[2022-01-31 11:29] LABS: Absolute Lymphocyte Count 3.09 X10^3/uL (0.83-4.51); Absolute Neutrophil Count 10.6 X10^3/uL (2.0-7.7); Basophil# 0.05 X10^3/uL; Basophil% 0.3 % (0-1); Eosinophil# 0.59 X10^3/uL; Eosinophils% 3.9 % (0-5); Hematocrit 37.1 % (40-54); Hemoglobin 9.6 g/dL (13.0-16.5); Lymphocyte # 3.09 X10^3/ul (0.83-4.51); Lymphocyte % 20.5 % (19-41); Mean Corp Hgb Conc 25.9 g/dL (32-36); Mean Corpuscular Hgb 20.4 pg (27.0-32.0); Mean Corpuscular Volume 78.8 fL (80-94); Mean Platelet Vol. 9.5 fl (6.2-12.0); Monocyte# 0.71 X10^3/uL; Monocyte% 4.7 % (0-10); NRBC Flagged by Analyzer 0 % (0-5); Neutrophil # 10.58 X10^3/uL (2.7-7.7); Platelet Count 401 K/mm3 (150-450); RBC Distribution Width CV 18.4 % (11.6-14.6); Red Blood Count 4.71 M/mm3 (4.6-6.2); White Blood Count 15.1 K/mm3 (4.4-11.0)
[2022-01-31 11:37] LABS: Erythrocyte Sedimentation Rate 125 mm/hr (0-20)
[2022-01-31 11:38] LABS: ALB/GLOB Ratio 0.6 RATIO (0.9-2.4); AST(SGOT) 8 U/L (15-37); Alanine Aminotransfer ALT/SGPT 15 U/L (16-61); Albumin, Serum 2.6 g/dL (3.2-5.0); Alkaline Phosphatase 100 U/L (45-117); Anion Gap 7 (5-15); BUN 15 mg/dL (7-18); BUN/Creat Ratio 14.6 RATIO (10-20); Calcium,Total 8.9 mg/dL (8.5-10.1); Chloride 103 mmol/L (98-107); Creatinine, Serum 1.03 mg/dL (0.70-1.30); EST Glomerular Filtration Rate 81 mL/min (>60); Est Glom Filt Rate - Afr Amer 97 mL/min (>60); Ferritin 20 ng/mL (26-388); Free T3 2.2 pg/mL (2.18-3.98); Globulin 4.6 g/dL (2.2-4.2); Glucose 128 mg/dL (74-106); Iron 26 ug/dL (65-175); Potassium 4.1 mmol/L (3.5-5.1); Protein, Total 7.2 g/dL (6.4-8.2); Sodium Level 141 mmol/L (136-145); T4 Free Direct 1.44 ng/dL (0.76-1.46); Thyroid Stim Hormone (TSH) 2.19 uIU/mL (0.358-3.74)
[2022-01-31 12:14] LABS: Vitamin B12 280 pg/mL (211-911); Vitamin D,25 Hydroxy 37.9 ng/mL
== END | disposition home or self-care (01) ==
LOC: LAB 09:01
PROVIDERS: PCP Family Medicine; Referring Provider Family Medicine; Visit Provider Family Medicine
DX: R53.83 Other fatigue (principal); M06.9 Rheumatoid arthritis, unspecified; E03.9 Hypothyroidism, unspecified; E55.9 Vitamin D deficiency, unspecified; E53.8 Deficiency of other specified B group vitamins; D50.9 Iron deficiency anemia, unspecified; Z51.81 Encounter for therapeutic drug level monitoring
CPT/HCPCS: 36415; 80053; 82306; 82607; 82728; 83540; 84439; 84443; 84481; 85025; 85652; 86140

== ENCOUNTER → 2022-06-20 | Outpatient (CLI) | payer MEDICAID, SELFPAY ==
[2022-06-20 10:26] LABS: Erythrocyte Sedimentation Rate 84 mm/hr (0-20)
[2022-06-20 10:27] LABS: Absolute Lymphocyte Count 2.93 X10^3/uL (0.83-4.51); Absolute Neutrophil Count 11.8 X10^3/uL (2.0-7.7); Basophil# 0.07 X10^3/uL; Basophil% 0.4 % (0-1); Eosinophil# 0.27 X10^3/uL; Eosinophils% 1.7 % (0-5); Hematocrit 39.8 % (40-54); Hemoglobin 10.3 g/dL (13.0-16.5); Lymphocyte # 2.93 X10^3/ul (0.83-4.51); Lymphocyte % 18.4 % (19-41); Mean Corp Hgb Conc 25.9 g/dL (32-36); Mean Corpuscular Hgb 20.3 pg (27.0-32.0); Mean Corpuscular Volume 78.5 fL (80-94); Mean Platelet Vol. 9.2 fl (6.2-12.0); NRBC Flagged by Analyzer 0 % (0-5); Neutrophil # 11.76 X10^3/uL (2.7-7.7); Platelet Count 396 K/mm3 (150-450); RBC Distribution Width CV 18.1 % (11.6-14.6); RBC Distribution Width SD 51.2 fl (35.1-43.9); Red Blood Count 5.07 M/mm3 (4.6-6.2); White Blood Count 15.9 K/mm3 (4.4-11.0)
[2022-06-20 10:50] LABS: Hemoglobin A1c 7.2 % (3.8-5.6)
[2022-06-20 11:02] LABS: ALB/GLOB Ratio 0.5 RATIO (0.9-2.4); AST(SGOT) 4 U/L (15-37); Alanine Aminotransfer ALT/SGPT 14 U/L (16-61); Albumin, Serum 2.8 g/dL (3.2-5.0); Alkaline Phosphatase 109 U/L (45-117); Anion Gap 5 (5-15); BUN 18 mg/dL (7-18); BUN/Creat Ratio 18.8 RATIO (10-20); Chloride 102 mmol/L (98-107); Creatinine, Serum 0.96 mg/dL (0.70-1.30); EST Glomerular Filtration Rate 87 mL/min (>60); Est Glom Filt Rate - Afr Amer 106 mL/min (>60); Ferritin 11 ng/mL (26-388); Free T3 2.2 pg/mL (2.18-3.98); Globulin 5.1 g/dL (2.2-4.2); Glucose 173 mg/dL (74-106); Iron 24 ug/dL (65-175); Potassium 3.9 mmol/L (3.5-5.1); Protein, Total 7.9 g/dL (6.4-8.2); Sodium Level 140 mmol/L (136-145); T4 Free Direct 1.34 ng/dL (0.76-1.46); Thyroid Stim Hormone (TSH) 1.08 uIU/mL (0.358-3.74)
[2022-06-20 13:48] LABS: Vitamin B12 313 pg/mL (211-911); Vitamin D,25 Hydroxy 28.3 ng/mL
== END | disposition home or self-care (01) ==
LOC: LAB 09:10
PROVIDERS: PCP Family Medicine; Visit Provider Family Medicine
DX: R53.83 Other fatigue (principal); M06.9 Rheumatoid arthritis, unspecified; E11.9 Type 2 diabetes mellitus without complications; E03.9 Hypothyroidism, unspecified; E55.9 Vitamin D deficiency, unspecified; E53.8 Deficiency of other specified B group vitamins; D50.9 Iron deficiency anemia, unspecified; Z51.81 Encounter for therapeutic drug level monitoring
CPT/HCPCS: 36415; 80053; 82306; 82607; 82728; 83036; 83540; 84439; 84443; 84481; 85025; 85652; 86140

== ENCOUNTER 2022-08-16 09:58 | Emergency (ER) | payer MEDICAID, SELFPAY ==
[2022-08-16] VITALS (7 sets, daily range): BP systolic 99–163; BP diastolic 54–82; PULSE 80–101; RESP 16–18; TEMP 36.2–36.9; O2SAT 95–98; BMI 61.2
--- NOTE | 2022-08-16 10:11 | CT_ITS ---
STUDY: CT PELVIS WITH CONTRAST REASON FOR EXAM: Male, 52 years old. Perianal abscess cellulitis concern for Chanel''s -- GFR 87 on 06/20/2022 RADIATION DOSAGE (If Supplied By Facility): CTDIvol = ( 28.21 ) mGy, DLP = ( 2042.17 ) mGycm TECHNIQUE: Transaxial imaging of the pelvis was performed without oral contrast. IV 100mL Isovue-370 was administered intravenously. Multiplanar coronal and sagittal images were reformatted. There is obesity, the entirety of soft tissue is not imaged. Individualized dose optimization techniques were used for this CT. COMPARISON: None. FINDINGS: Soft tissue prominence and trace fluid along the perineum centered along the perianal soft tissue with tiny pocket of air within the percutaneous or immediate subcutaneous level. No cutaneous/subcutaneous emphysema detected. There is bilateral inguinal lymph node present and right greater than left saphenous venous varices. Trace fluid extending along the perineum into the right scrotum. No emphysema. Skin thickening along the dependent proximal bilateral thighs medially with stranding along this adjacent subcutaneous fat. Normal urinary bladder. Normal visualized small intestine. Normal visualized colon. There is no pelvic fluid. Normal visualized pelvic arteries. Normal osseous structures. CT/Pelvis WITH IV Contrast IMPRESSION: Inflammatory changes along the perianal soft tissue with tiny pockets of air which may be due to a skin defect, adjacent fat stranding and trace fluid. Early minimal collection or early abscess formation in the perianal soft tissue is possible. No gas-forming inflammation in the ischiorectal fossae, urogenital diaphragm or scrotum. There is edema and trace fluid extending along the perineum and scrotum however no gas forming inflammation detected at the time of imaging. With persistence of symptoms or high clinical suspicion level further follow-up is recommended. Likely reactive inguinal lymphoid hyperplasia . Other findings such as varices. Electronically Signed: Ada Anderson MD at 11:34 EST Reading Location ID and State: , Service support ,
--- NOTE | 2022-08-16 10:12 | EKG12_ITS ---
Test Reason : Blood Pressure : / mmHG Vent. Rate : 095 BPM Atrial Rate : 095 BPM P-R Int : 174 ms QRS Dur : 134 ms QT Int : 388 ms P-R-T Axes : 058 -49 042 degrees QTc Int : 487 ms Normal sinus rhythm Right bundle branch block Left anterior fascicular block Bifascicular block Abnormal ECG Confirmed by GODWIN MEZA, EDWARDO ([id number]), news editor ALF RUCKER ([id number]) on 08/18/2022 11:15:57 AM Referred By: Confirmed By:EDWARDO CONNELLY MD
--- NOTE | 2022-08-16 10:16 | EX.ED.DYSGE1 ---
HPI History of Present Illness Chief Complaint: Wound Detail of Chief Complaint: Bleeding from tater tot sac . 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 He denies fever, chills night sweats. He denies dysuria, frequency, urgency or hematuria. He reports difficulty urinating. He does endorse bleeding easily and bruising easily. His last blood sugar was approximately 187. He denies polyuria, polydipsia or nocturia. He complains of chronic dyspnea and chronic dyspnea on exertion. He also has chronic stable orthopnea. Patient denies chest pain, increased dyspnea on exertion. He does endorse swelling of his legs with venous stasis dermatitis. Prior similar symptoms: No Recent Illness/Hospitalization: No PFSH PFSH Medical History Abscess of deep perineal space Anemia Anxiety Atherosclerotic heart disease of [place] coronary artery without angina pectoris Chest pain Chronic hypoxemic respiratory failure Chronic pain Chronic prescription benzodiazepine use Chronic steroid use Colon polyps COPD (chronic obstructive pulmonary disease) DVT (deep venous thrombosis) Essential hypertension Family history of premature CAD GERD (gastroesophageal reflux disease) Goiter History of Chanel's gangrene HLD (hyperlipidemia) Hypothyroidism IBS (irritable bowel syndrome) Intertrigo Kidney stones Left against medical advice Non-healing surgical wound NSTEMI, initial episode of care On home oxygen therapy BERT (obstructive sleep apnea) Pain in scapula Rheumatoid arthritis Sleep apnea Smoker Super obesity Superficial thrombophlebitis of leg Thrush Type 2 diabetes mellitus Ulcer of scrotum Home Medications levothyroxine 100 mcg tablet 300 mcg PO DAILY thyroid 06/22/13 [History Last Taken 03/22/21 09:00] diazepam 10 mg tablet (Valium) 10 mg PO Q6H PRN Anxiety 03/03/16 [History Last Taken 03/22/21 18:00] albuterol sulfate 90 mcg/actuation aerosol inhaler 2 puff inhalation Q6H PRN PRN Sob &/Or Wheezing 07/07/20 [History Last Taken 03/22/21 09:00] ascorbic acid (vitamin C) 500 mg capsule 500 mg PO BID vitamin 07/07/20 [History Last Taken Unknown] gabapentin 100 mg capsule 100 mg PO QHS neuropathy 07/07/20 [History Last Taken 03/21/21 22:00] omeprazole 20 mg capsule,delayed release 20 mg PO BID reflux 07/07/20 [History Last Taken 03/22/21 09:00] aspirin 81 mg chewable tablet 81 mg PO DAILY #30 tabs 03/26/21 [Rx Last Taken Unknown] dabigatran etexilate 150 mg capsule (Pradaxa) 150 mg PO BID #0 caps 03/26/21 [Rx Last Taken 03/21/21 09:00] atorvastatin 40 mg tablet 40 mg PO QHS #30 tabs 05/01/21 [Rx Last Taken Unknown] losartan 25 mg tablet 25 mg PO BIDCM #30 tabs 05/01/21 [Rx Last Taken Unknown] glipizide 2.5 mg tablet, extended release 24 hr 1 ea PO DAILY 09/06/21 [History Last Taken Unknown] doxycycline hyclate 100 mg capsule 100 mg PO BID #14 caps 12/29/21 [Rx Last Taken Unknown] furosemide 20 mg tablet 40 mg PO BID 03/12/22 [History Last Taken Unknown] metoprolol tartrate 25 mg tablet 25 mg PO BID #60 tabs 05/26/22 [Rx Last Taken Unknown] oxycodone 5 mg tablet 5 mg PO Q6H PRN Pain 08/16/22 [History Last Taken Unknown] prednisone 10 mg tablet 20 mg PO DAILY 08/16/22 [History Last Taken Unknown] ticagrelor 90 mg tablet (Brilinta) 90 mg PO BID 08/16/22 [History Last Taken Unknown] Allergy/AdvReac Type Severity Reaction Status Date / Time Penicillins Allergy Hives Verified 08/16/22 10:02 Sulfa (Sulfonamide Allergy Hives Verified 08/16/22 10:02 Antibiotics) etanercept [From Enbrel] AdvReac Swelling Verified 08/16/22 10:02 rivaroxaban [From Xarelto] AdvReac Nausea Verified 08/16/22 10:02 warfarin sodium AdvReac Nausea Verified 08/16/22 10:02 [From Coumadin] Family History Other Cancer Heart disease Kidney disease Surgical History History of coronary artery stent placement (03/25/21) Social History (Updated 08/16/22 @ 10:[address] Owen Patel MD) household members: family Smoking Status: Heavy Smoker (>10/day) substance use type: does not use ROS ROS ED Constitutional Constitutional ED: Denies chills, fever(s), subjective, sweats or weight loss Eyes Eyes: Denies blurry vision, change in vision or diplopia ENT ENT ED: Denies ear pain, rhinorrhea or sore throat Cardiovascular Cardiovascular: Reports orthopnea; Denies chest pain, palpitations, paroxysmal nocturnal dyspnea or racing heartbeat Respiratory/Chest Respiratory/Chest: Reports dyspnea, dyspnea on exertion and orthopnea; Denies cough, paroxysmal nocturnal dyspnea or sputum Gastrointestinal Gastrointestinal: Denies abdominal pain, diarrhea, melena or nausea Genitourinary Genitourinary ED: Reports other Details: Additional information documented HPI narrative ; Denies dysuria, hematuria or urinary frequency Musculoskeletal Musculoskeletal: Denies arthralgias, back pain, myalgias or neck pain Integumentary Denies abscess, Abrasions or rash Neurologic Neurologic: Reports weakness; Denies headache(s) or paresthesias Hematologic/Lymphatic Hematologic/Lymphatic: Reports easy bleeding and easy bruising EXAM Physical Exam Const Vital Signs: 08/16/22 09:59 08/16/22 10:27 08/16/22 11:35 Temperature 97.1 F L 98.3 F Temperature Source Temporal Oral Pulse Rate 101 H 87 Respiratory Rate 16 18 Blood Pressure 163/74 H 112/66 Blood Pressure Mean 103 81 Pulse Ox 95 96 Oxygen Delivery Method Nasal Cannula Nasal Cannula Oxygen Flow Rate (L/min) 4 4 4 Positive well nourished, well developed and obese Constitutional Narrative: Patient became dyspneic when he attempted to urinate. His oxygen became disconnected. He was placed on 4 L by nasal cannula, which he reports is baseline. General Appearance ED: well developed; Negative for NAD or pallor Nutritional Appearance: obese HEENT Reports dry mucous membranes HEENT Narrative: Head is atraumatic normocephalic. Ears normal. Nares patent. Mouth ED: Yes dry mucous membranes Mouth: dry mucous membranes Eyes PERRL and EOMs intact bilaterally General Eye ED: Negative for pale conjunctiva or scleral icterus Neck no lymphadenopathy, supple and no JVD Neck Narrative: Trachea is midline no in-store expiratory stridor. Chest Wall inspection of chest normal and palpation of chest normal Resp No normal respiratory effort and No clear to auscultation bilaterally Auscultation: rales bilateral other (And inspiratory consistent with COPD.) Cardio regular rhythm, S1 normal heart sound, S2 normal heart sound and no murmurs Rhythm: abnormal rhythm irregularly irregular (Heart tones are distant probably due to body habitus.) GI normal to inspection, nondistended, normoactive bowel sounds, non-tender, non-distended and no masses; Negative for hepatosplenomegaly GI Narrative: Abdominal exam is limited due to body Narrative: There is no evidence of scrotal or penile edema. There is no lesions noted in the scrotum. Patient has a perianal abscess that is draining bloody purulent material. There is an area of necrosis. There is no crepitus or subcutaneous air. Digital exam did not cause any discomfort. Patient states it felt weird. Prostate normal size nontender. Was no stool in the rectal vault. Back/Spine no CVA tenderness Thoracic Spine / Upper Back: Negative for thoracic spinal tenderness Lumbar Spine / Lower Back: Negative for lumbar spinal tenderness Extremity Extremity Narrative: Venous stasis Derm at noticeably lower extremity exam area pulses were not palpable due to the amount of edema. Neuro oriented x3, CN's II-XII intact bilaterally and no sensory deficits noted Sensorium / Orientation: alert Psych Psych Narrative: Patient is anxious because his ox is not working properly and is having significant trouble breathing Mood & Affect: anxious Skin No no rashes or lesions noted and No no wounds Skin Narrative: Previously described i.e. perianal abscess with cellulitis and area of necrosis. General Skin Exam: Negative for elasticity normal, jaundice or pallor Sepsis Attestation Sepsis Alert: Yes Sepsis Attestation: Agree w/Sepsis Date exam was performed: 08/16/22 Possible Source of Sepsis: Skin/soft tissue Sepsis Organ Dysfunction Criteria Present: Lactic Acid > 2 mmol/L Supportive Findings: Purulent drainage perianal area with surrounding cellulitis and lactate greater than 4. Fluid Resuscitation Fluid resuscitation indicated?: Yes Fluid Resuscitation ordered: Lesser volume fluid bolus ordered Reason for lesser fluid bolus:: Concern for fluid overload MDM MDM MDM Narrative Medical decision making narrative: In light of patient having diabetes with perianal abscess/cellulitis and necrotic area concern for Chanel's gangrene. CT of the pelvis with IV contrast was ordered. Patient's last GFR was 87, June 20, 2022. Sepsis work-up was undertaken. Because there is concern for Chanel's gangrene patient was treated with clindamycin first followed by levofloxacin and vancomycin. He reports hives to penicillin and sulfa. Because of his dyspnea which I suspect is due to his chronic COPD a chest x-ray was obtained to rule out pneumonia, pneumothorax etc. EKG was obtained to rule out acute cardiac ischemia since he has a significant infectious process. Since lactate is greater than 4 patient will receive IV fluids. Full 30 cc/kg bolus would be greater than 6 L. We will start with 2 L in light of patient's medical problems and concerned this may cause fluid overload. The interpretation by radiology was read. The stamp pad finisher or patient agrees that there are chronic changes on the right with improvement of the right pleural effusion. Since the infiltrate is new on the left and concern for pneumonia patient will need antibiotics. Since there was concern for Chanel's gangrene and patient had allergy to penicillin he received clindamycin first followed by levofloxacin and vancomycin. Vancomycin will cover pulmonary pathogens since radiologist is concerned that he does have an infiltrate on the left. Lab Data Attestation: I reviewed the patient's lab results. Lab results narrative: Count is elevated at 13.6. Patient has evidence of microcytic anemia, which is chronic. PT is slight elevated 15.7 with an INR 1.3 and PT PT is 39.8. This is due to his. Patient states he is on Xarelto. Electrolyte panel is unremarkable. GFR is 70. Glucose is 141 with a normal CO2 and anion gap transit nasal are normal. Lack elevated 4.8. Since patient has an infectious source will treat with IV meds. UA is unremarkable. Labs: Laboratory Results - last 24 hr 08/16/22 08/16/22 08/16/22 10:40 10:40 10:40 WBC 13.6 H RBC 4.61 Hgb 9.7 L Hct 35.8 L MCV 77.7 L MCH 21.0 L MCHC 27.1 L RDW Std Deviation 51.3 H RDW Coeff of Kris 18.6 H Plt Count 371 MPV 8.9 Immature Gran % (Auto) 0.400 Neut % (Auto) 80.8 H Lymph % (Auto) 12.4 L Kings % (Auto) 4.6 Eos % (Auto) 1.5 Baso % (Auto) 0.3 Absolute Neuts (auto) 11.0 H Absolute Lymphs (auto) 1.69 Nucleated RBC % 0 PT 15.7 H INR 1.3 APTT 39.8 H Sodium 139 Potassium 3.7 Chloride 101 Carbon Dioxide 31.0 Anion Gap 7 BUN 12 Creatinine 1.16 Estim Creat Clear Calc 83.23 Est GFR (MDRD) Af Amer 85 Est GFR (MDRD) Non-Af 70 BUN/Creatinine Ratio 10.3 Glucose 141 H Lactic Acid Calcium 8.7 Total Bilirubin 0.30 AST 8 L ALT 18 Alkaline Phosphatase 95 Total Protein 7.3 Albumin 2.5 L Globulin 4.8 H Albumin/Globulin Ratio 0.5 L Urine Color Urine Clarity Urine pH Ur Specific [place] Urine Protein Urine Glucose (UA) Urine Ketones Urine Occult Blood Urine Nitrite Urine Bilirubin Urine Urobilinogen Ur Leukocyte Esterase Urine RBC Urine WBC Ur Squamous Epith Cells Urine Bacteria Urine Mucus 08/16/22 08/16/22 10:40 10:40 WBC RBC Hgb Hct MCV MCH MCHC RDW Std Deviation RDW Coeff of Kris Plt Count MPV Immature Gran % (Auto) Neut % (Auto) Lymph % (Auto) Kings % (Auto) Eos % (Auto) Baso % (Auto) Absolute Neuts (auto) Absolute Lymphs (auto) Nucleated RBC % PT INR APTT Sodium Potassium Chloride Carbon Dioxide Anion Gap BUN Creatinine Estim Creat Clear Calc Est GFR (MDRD) Af Amer Est GFR (MDRD) Non-Af BUN/Creatinine Ratio Glucose Lactic Acid 4.8 H* Calcium Total Bilirubin AST ALT Alkaline Phosphatase Total Protein Albumin Globulin Albumin/Globulin Ratio Urine Color Yellow Urine Clarity Clear Urine pH 7.0 Ur Specific [place] 1.010 Urine Protein Negative Urine Glucose (UA) Normal Urine Ketones Negative Urine Occult Blood 25 H Urine Nitrite Negative Urine Bilirubin Negative Urine Urobilinogen Normal Ur Leukocyte Esterase Negative Urine RBC 0 SEEN Urine WBC 0-5 SEEN Ur Squamous Epith Cells 0 SEEN Urine Bacteria 0 SEEN Urine Mucus 0 SEEN Radiography Chest X-Ray - ED: 1 View and Read by ED Physician (View chest x-ray was chronic changes on the right compared to chest x-ray March 23, 2021. There is a new infiltrate on the left. Cardiac silhouette and size is unremarkable. Perihilar regions unremarkable.) Diagnostic Testing: Clinical Impression(s) from Imaging Studies Pelvis CT 08/16/22 10:11 IMPRESSION: Inflammatory changes along the perianal soft tissue with tiny pockets of air which may be due to a skin defect, adjacent fat stranding and trace fluid. Early minimal collection or early abscess formation in the perianal soft tissue is possible. No gas-forming inflammation in the ischiorectal fossae, urogenital diaphragm or scrotum. There is edema and trace fluid extending along the perineum and scrotum however no gas forming inflammation detected at the time of imaging. With persistence of symptoms or high clinical suspicion level further follow-up is recommended. Likely reactive inguinal lymphoid hyperplasia . Other findings such as varices. Electronically Signed: Ada Anderson MD at 11:34 EST , Chest X-Ray 08/16/22 10:55 IMPRESSION: Bilateral airspace disease, worsened on the left side with distortion of parenchyma, likely infiltrate and scarring, in addition to mild left pleural effusion, decreased right pleural effusion. Electronically Signed: Ada Anderson MD at 11:21 EST , CT of the pelvis reveals inflammatory changes. There is no subcutaneous air. There is no obvious abscess on my review. The scrotum and scrotal contents appear normal. Will await for formal read from radiology. Rhythm Strip Rhythm Strip: Sinus Tach Rate: 101 EKG Initial EKG: Attestation: I personally reviewed and interpreted this EKG as follows: Interpretation: Sinus Rhythm (Ventricular rate is 95. QRS morphology consistent with right bundle branch block and there appears to be evidence of left anterior fascicular block. CA interval is 174 ms. QS duration of 34 ms. QT duration 388 ms. Sinclair is to the left.) Critical Care Time Critical Care Time: Yes Critical care time (excluding procedures): 30-74 minutes (Total 42 minutes), Including time spent: (3, physical, documentation, independent interpretation of laboratory results and imaging, initiation of therapy for perianal cellulitis with concern for Chanel's gangrene), Discussing w/Patient &/or Family/Automotive Power Electronics Engineer (Patient and mother), Discussing w/Consultants, Arranging Admission or Transfer and Performing Direct Patient Care at Bedside Discharge Plan Dx/Rx/DC Orders Clinical Impression: Perianal abscess, Atherosclerotic heart disease of [place] coronary artery without angina pectoris, Essential hypertension, Edema, Tobacco dependence, Cellulitis of perineum, Septic shock, Hyperglycemia due to type 2 diabetes mellitus, Community acquired pneumonia Disposition Disposition: Acute Care Hospital [facility]
[2022-08-16] MEDS: 0.9% Normal Saline 1,000 ML 250 ML IV (10:36)
[2022-08-16] MEDS: levoFLOXacin IV 750 MG/150 ML BAG 100 MG IV (10:41)
[2022-08-16 10:49] LABS: Bacteria 0 SEEN /hpf (None Seen); Mucous, Urine 0 SEEN /hpf (<or=2+); Red Blood Cells-Urine 0 SEEN /hpf (0-5); Squamous Epithelial Cells - UA 0 SEEN /hpf (0-5)
[2022-08-16 10:52] LABS: Color, Urine Yellow (Yellow); Glucose, Dipstick Normal (Normal); Ketone-Dipstick Negative (Negative); Leukocyte Esterase-Dipstick Negative /ul (Negative); Nitrite-Dipstick Negative (Negative); Occult Blood-Urine 25 /ul (Negative); Protein-Dipstick Negative (Negative); Urine Bilirubin Dipstick Negative (Negative); Urine Clarity Clear (Clear); Urine Urobilinogen Normal (Normal)
[2022-08-16 10:53] LABS: Absolute Lymphocyte Count 1.69 X10^3/uL (0.83-4.51); Basophil# 0.04 X10^3/uL; Basophil% 0.3 % (0-1); Eosinophil# 0.21 X10^3/uL; Eosinophils% 1.5 % (0-5); Hematocrit 35.8 % (40-54); Hemoglobin 9.7 g/dL (13.0-16.5); Lymphocyte # 1.69 X10^3/ul (0.83-4.51); Lymphocyte % 12.4 % (19-41); Mean Corp Hgb Conc 27.1 g/dL (32-36); Mean Corpuscular Volume 77.7 fL (80-94); Mean Platelet Vol. 8.9 fl (6.2-12.0); Monocyte# 0.62 X10^3/uL; Monocyte% 4.6 % (0-10); NRBC Flagged by Analyzer 0 % (0-5); Neutrophil % 80.8 % (47-70); Platelet Count 371 K/mm3 (150-450); RBC Distribution Width CV 18.6 % (11.6-14.6); RBC Distribution Width SD 51.3 fl (35.1-43.9); Red Blood Count 4.61 M/mm3 (4.6-6.2); White Blood Count 13.6 K/mm3 (4.4-11.0)
--- NOTE | 2022-08-16 10:55 | RAD_ITS ---
STUDY: X-RAY CHEST REASON FOR EXAM: Male, 52 years old. dyspnea TECHNIQUE: Single AP portable view of the chest. The images are under penetrated. COMPARISON: FINDINGS: There are superimposed monitor leads. Worsening of aeration in the left hemithorax with increased pleural thickening, linear changes extending to the pleural reflection, distortion of parenchyma, airspace disease and volume loss in the left base with tethering of the left hemidiaphragm. Airspace disease and nodularity in the right lung without significant interval change. Increasing right pleural effusion. Findings likely exaggerated by limited penetration likely secondary to body habitus. Normal size heart. Normal mediastinum and albin. Normal visualized pulmonary arteries. Obscured aortic arch and descending thoracic aorta. The spine and upper abdominal soft tissues are obscured. RAD/Chest 1 View (Portable) IMPRESSION: Bilateral airspace disease, worsened on the left side with distortion of parenchyma, likely infiltrate and scarring, in addition to mild left pleural effusion, decreased right pleural effusion. Electronically Signed: Ada Anderson MD at 11:21 EST Reading Location ID and State: , Service support ,
[2022-08-16] MEDS: Clindamycin 900 MG/50 ML BAG 75 MG IV (11:02)
[2022-08-16 11:03] LABS: International Normalized Ratio 1.3; Partial Thromboplast Time 39.8 Seconds (24.1-36.2); Prothrombin Time (Protime)PT. 15.7 SECONDS (11.7-14.9)
[2022-08-16 11:06] LABS: ALB/GLOB Ratio 0.5 RATIO (0.9-2.4); AST(SGOT) 8 U/L (15-37); Alanine Aminotransfer ALT/SGPT 18 U/L (16-61); Albumin, Serum 2.5 g/dL (3.2-5.0); Alkaline Phosphatase 95 U/L (45-117); Anion Gap 7 (5-15); BUN 12 mg/dL (7-18); BUN/Creat Ratio 10.3 RATIO (10-20); Calcium,Total 8.7 mg/dL (8.5-10.1); Chloride 101 mmol/L (98-107); Creatinine, Serum 1.16 mg/dL (0.70-1.30); EST Glomerular Filtration Rate 70 mL/min (>60); Est Glom Filt Rate - Afr Amer 85 mL/min (>60); Estimated Creatinine Clearance 83.23 ml/min; Globulin 4.8 g/dL (2.2-4.2); Glucose 141 mg/dL (74-106); Potassium 3.7 mmol/L (3.5-5.1); Protein, Total 7.3 g/dL (6.4-8.2); Sodium Level 139 mmol/L (136-145)
[2022-08-16 11:11] LABS: White Blood Cells 0-5 SEEN /hpf (0-5)
[2022-08-16 11:19] LABS: Lactic Acid 4.8 mmol/L (0.4-1.9)
--- NOTE | 2022-08-16 11:19 | ED.RN ---
lactic 4.8. dr castro aware
[2022-08-16] MEDS: 0.9% Normal Saline 1,000 ML 1000 ML IV ×2 (11:40→13:09)
--- NOTE | 2022-08-16 11:53 | NURSING ---
DR MARIA A MURCIA
--- NOTE | 2022-08-16 11:58 | NURSING ---
PCU [facility], PERIANAL ABSCESS, CAP
[2022-08-16] MEDS: diazePAM 5 MG Tablet 10 MG PO (12:14)
--- NOTE | 2022-08-16 13:08 | PCM.HOSP.N ---
Hospitalist Note Called to eval Mr. Cruz for sepsis 2/2 perianal abscess that was draining. When I spoke with the pt he endorsed that he did not want surgery however when we discussed code status he said he was full code and he wanted to live, in light of that discussed if he would be willing to have life-saving surgery if this infection did worsen or developed into something like Chanel's gangrene or neck fasc and he said he would not rule that out in the event it was lifesaving but would prefer to avoid it if possible. After evaluating pt, called to discuss w/ Dr. Wilson who reviewed CT and recommended transfer to tertiary facility.
--- NOTE | 2022-08-16 13:16 | NURSING ---
CALLED [facility] FOR TRANSFER
[2022-08-16 14:47] LABS: Reflex Lactate? Y
--- NOTE | 2022-08-16 15:44 | NURSING ---
GOING TO [facility]
--- NOTE | 2022-08-16 15:50 | NURSING ---
CALLED [facility], ETA IS 60 TO 90 MIN
[2022-08-16 16:11] LABS: Lactic Acid 2.3 mmol/L (0.4-1.9)
== END 2022-08-16 17:20 | disposition short-term general hospital (02) ==
LOC: ED 11:51 → PCU 12:08
PROVIDERS: Emergency Provider Emergency Medicine; PCP Family Medicine; Visit Provider Emergency Medicine
DX: A41.9 Sepsis, unspecified organism (principal); R65.21 Severe sepsis with septic shock; J44.0 Chronic obstructive pulmonary disease with (acute) lower respiratory infection; E11.65 Type 2 diabetes mellitus with hyperglycemia; E11.59 Type 2 diabetes mellitus with other circulatory complications; E66.01 Morbid (severe) obesity due to excess calories; L03.315 Cellulitis of perineum; K61.0 Anal abscess; J18.9 Pneumonia, unspecified organism; J90 Pleural effusion, not elsewhere classified; I25.10 Atherosclerotic heart disease of native coronary artery without angina pectoris; F17.200 Nicotine dependence, unspecified, uncomplicated; I10 Essential (primary) hypertension; R06.01 Orthopnea; I87.8 Other specified disorders of veins
CPT/HCPCS: 71045; 72193; 80053; 81001; 83605; 85025; 85610; 85730; 87040; 87811; 93005; 96361; 96365; 99285; J7030; J7040; Q9967; A4216

== ENCOUNTER 2022-11-07 23:00 | Emergency (ER) | payer MEDICAID, SELFPAY ==
[2022-11-07 23:01] VITALS: BP 163/92; PULSE 108; RESP 15; TEMP 36.8
--- NOTE | 2022-11-07 23:40 | EDS_ITS ---
HPI History of Present Illness Chief Complaint: Abscess Informant: patient Onset/Context/Timing Onset: Days (4) Context: Gradual Onset Timing: Continuous Quality: Pressure Location: Left gluteal fold Worsened by: Certain positions Relieved by: Nothing Narrative Narrative: Patient presents with an abscess to his left gluteal fold area that has been getting worse over the last 4 days. Patient states he is seeing the wound care nurse for a previous wound to his right gluteal area. Patient states this is healing. Patient states the wound care nurse told him that if his boil continues to get bigger, he would need to go to the emergency department to have it lanced. Patient denies any fevers or chills. Patient denies any discharge or drainage. Patient states it is worse whenever he sits in certain positions. Patient describes his pain as a pressure. [facility] Medical History Abscess of deep perineal space Anemia Anxiety Atherosclerotic heart disease of [place] coronary artery without angina pectoris Chest pain Chronic hypoxemic respiratory failure Chronic pain Chronic prescription benzodiazepine use Chronic steroid use Colon polyps COPD (chronic obstructive pulmonary disease) DVT (deep venous thrombosis) Essential hypertension Family history of premature CAD GERD (gastroesophageal reflux disease) Goiter History of Chanel's gangrene HLD (hyperlipidemia) Hypothyroidism IBS (irritable bowel syndrome) Intertrigo Kidney stones Left against medical advice Non-healing surgical wound NSTEMI, initial episode of care On home oxygen therapy BERT (obstructive sleep apnea) Pain in scapula Rheumatoid arthritis Sleep apnea Smoker Super obesity Superficial thrombophlebitis of leg Thrush Type 2 diabetes mellitus Ulcer of scrotum Home Medications diazepam 10 mg tablet (Valium) 10 mg PO 4X/DAY PRN Anxiety 03/03/16 [History Last Taken 08/15/22] albuterol sulfate 90 mcg/actuation aerosol inhaler (Ventolin HFA) 1 - 2 puff inhalation UD PRN Sob &/Or Wheezing 07/07/20 [History Last Taken 08/11/22] ascorbic acid (vitamin C) 500 mg capsule 500 mg PO DAILY SUPPLEMENT 07/07/20 [History Last Taken 08/16/22] gabapentin 100 mg capsule 100 mg PO QHS neuropathy 07/07/20 [History Last Taken 08/15/22] omeprazole 20 mg capsule,delayed release 20 mg PO BID ACID REFLUX 07/07/20 [Hist ory Last Taken 08/16/22] glipizide 2.5 mg tablet, extended release 24 hr 2.5 mg PO DAILY DIABETES 09/06/21 [History Last Taken Unknown] furosemide 20 mg tablet 40 mg PO DAILY FLUID 03/12/22 [History Last Taken 08/16/22] ammonium lactate 12 % topical cream 1 applic topical BID LEGS 08/16/22 [History Last Taken 08/15/22] aspirin 81 mg tablet,delayed release 81 mg PO DAILY HEART HEALTH 08/16/22 [Hist ory Last Taken 08/16/22] atorvastatin 40 mg tablet 40 mg PO QHS CHOLESTEROL 08/16/22 [History Last Taken 08/15/22] bumetanide 1 mg tablet 1 - 2 mg PO DAILY PRN FLUID 08/16/22 [History Last Taken Unknown] cholecalciferol (vitamin D3) 1,250 mcg (50,000 unit) capsule 1,250 mcg PO TH SUPPLEMENT 08/16/22 [History Last Taken Unknown] dabigatran etexilate 150 mg capsule (Pradaxa) 150 mg PO BID BLOOD THINNER 08/16/22 [History Last Taken 08/16/22] doxycycline hyclate 100 mg capsule 100 mg PO BID INFECTIONS 08/16/22 [History Last Taken 08/09/22] fluticasone propionate 50 mcg/actuation nasal spray,suspension 2 spray intranasal DAILY PRN Nasal Congestion 08/16/22 [History Last Taken Unknown] furosemide 20 mg tablet 20 mg PO LUNCH FLUID 08/16/22 [History Last Taken Unknown] levothyroxine 150 mcg tablet 300 mcg PO DAILY THYROID 08/16/22 [History Last Taken 08/16/22] losartan 25 mg tablet 25 mg PO BID BLOOD PRESSURE 08/16/22 [History Last Taken 08/16/22] metoprolol tartrate 25 mg tablet 25 mg PO BID BLOOD PRESSURE 08/16/22 [History Last Taken 08/16/22] miconazole nitrate 2 % topical cream 1 applic topical BID FUNGAL INFECTION 08/16/22 [History Last Taken 08/16/22] nicotine 21 mg/24 hr daily transdermal patch 1 patch transdermal DAILY NICOTINE WITHDRAWAL 08/16/22 [History Last Taken 08/15/22] nystatin 100,000 unit/gram topical powder (Nyamyc) 1 applic topical BID SKIN FOLDS 08/16/22 [History Last Taken 08/15/22] oxycodone 5 mg tablet 5 mg PO Q6H PRN Pain 08/16/22 [History Last Taken Unknown] prednisone 10 mg tablet 10 mg PO BID STEROID 08/16/22 [History Last Taken 08/16/22] ticagrelor 90 mg tablet (Brilinta) 90 mg PO BID BLOOD THINNER 08/16/22 [History Last Taken 08/16/22] clindamycin HCl 300 mg capsule (Cleocin HCl) 300 mg PO Q6H #40 CAPSULES 11/07/22 [Rx Last Taken Unknown] Allergy/AdvReac Type Severity Reaction Status Date / Time Penicillins Allergy Hives Verified 11/07/22 23:09 Sulfa (Sulfonamide Allergy Hives Verified 11/07/22 23:09 Antibiotics) etanercept [From Enbrel] AdvReac Swelling Verified 11/07/22 23:09 rivaroxaban [From Xarelto] AdvReac Nausea Verified 11/07/22 23:09 warfarin sodium AdvReac Nausea Verified 11/07/22 23:09 [From Coumadin] Family History Other Cancer Heart disease Kidney disease Surgical History History of coronary artery stent placement (03/25/21) Social History household members: family Smoking Status: Heavy Smoker (>10/day) substance use type: does not use ROS ROS ED Constitutional Constitutional ED: Denies chills or fever(s) Eyes Eyes: Denies blurry vision or change in vision ENT ENT ED: Denies rhinorrhea or sore throat Cardiovascular Cardiovascular: Denies chest pain or palpitations Respiratory/Chest Respiratory/Chest: Denies cough or dyspnea Gastrointestinal Gastrointestinal: Denies nausea or vomiting Genitourinary Genitourinary ED: Denies dysuria or hematuria Musculoskeletal Musculoskeletal: Denies back pain or neck pain Integumentary Reports abscess; Denies rash Neurologic Neurologic: Denies headache(s) or weakness Allergic/Immunologic Allergic/Immunologic ED: Denies mouth swelling or urticaria EXAM Physical Exam Const Vital Signs: 11/07/22 23:01 Temperature 98.2 F Temperature Source Temporal Pulse Rate 108 H Respiratory Rate 15 Blood Pressure 163/92 H Blood Pressure Mean 115 Oxygen Delivery Method Nasal Cannula Oxygen Flow Rate (L/min) 4 Positive well nourished, well developed and obese General Appearance ED: well developed Nutritional Appearance: obese HEENT Reports moist mucous membranes Neuro oriented x3, CN's II-XII intact bilaterally and no sensory deficits noted Sensorium / Orientation: alert Motor Exam: strength 5/5 throughout Psych mental status grossly normal Skin Skin Narrative: There is an abscess noted in the left gluteal fold. There is fluctuance. There is mild erythema around the abscess. There is mild warmth. There is no active discharge or drainage. There is some mild induration around the abscess. There is mild tenderness to palpation over the abscess. MDM MDM MDM Narrative Medical decision making narrative: Patient was advised of the need for incision and drainage. Patient is agreeable with this. Informed consent was obtained. Patient was given the opportunity ask questions. Patient had no further questions. The area was cleaned with chlorhexidine prep. The area was anesthetized with 1% plain lidocaine locally. A small cruciate incision was made using an 11 blade scalpel. A large amount of purulent drainage was expressed. The wound was left open. Bacitracin dressing was applied. Patient tolerated the procedure well. Patient was instructed to use warm compresses. Patient was given a dose of clindamycin here. Patient was given a prescription for clindamycin. Patient was instructed to follow-up with her primary care physician in 5 to 7 days. Patient understood and was agreeable with the plan. All questions were answered. Discharge Plan Triage Chief Complaint: Abscess ED Provider: Darian Cash Dx/Rx/DC Orders Clinical Impression: Abscess, gluteal, left, Tobacco dependence, Morbid obesity with BMI of 60.0- 69.9, adult Instructions: ED Abscess Incision And Drainage Prescriptions: New clindamycin HCl [Cleocin HCl] 300 mg capsule 300 mg PO Q6H Qty: 40 0RF No Action glipizide 2.5 mg tablet extended release 24hr 2.5 mg PO DAILY furosemide 20 mg tablet 40 mg PO DAILY diazepam [Valium] 10 MG tablet 10 mg PO 4X/DAY PRN (Reason: Anxiety) omeprazole 20 MG capsule,delayed release(DR/EC) 20 mg PO BID gabapentin 100 MG capsule 100 mg PO QHS albuterol sulfate [Ventolin HFA] 1 INHALER inhaler 1 - 2 puff INHALATION UD PRN (Reason: Sob &/Or Wheezing) Rx Instructions: INHALE 1 TO 2 PUFFS BY MOUTH AND INTO THE LUNGS EVERY 4 TO 6 HOURS NEEDED ascorbic acid (vitamin C) 500 MG capsule 500 mg PO DAILY prednisone 10 mg Tablet 10 mg PO BID oxycodone 5 mg Tablet 5 mg PO Q6H PRN (Reason: Pain) Brilinta 90 mg Tablet 90 mg PO BID miconazole nitrate 2 % cream 1 applic TOPICAL BID Label Comments: apply to affected area twice a day aspirin 81 mg tablet,delayed release (DR/EC) 81 mg PO DAILY levothyroxine 150 mcg tablet 300 mcg PO DAILY Label Comments: take 2 tablets by mouth once daily nicotine 21 mg/24 hr patch 24 hour 1 patch transdermal DAILY bumetanide 1 mg tablet 1 - 2 mg PO DAILY PRN (Reason: FLUID) ammonium lactate 12 % cream 1 applic TOPICAL BID furosemide 20 mg tablet 20 mg PO LUNCH nystatin [Nyamyc] 100,000 unit/gram powder 1 applic TOPICAL BID Label Comments: apply to affected area once daily to twice a day fluticasone propionate 50 mcg/actuation spray,suspension 2 spray INTRANASAL DAILY PRN (Reason: Nasal Congestion) Label Comments: instill 2 sprays into each nostril once daily cholecalciferol (vitamin D3) 1,250 mcg (50,000 unit) capsule 1,250 mcg PO TH Label Comments: take 1 capsule by mouth every week atorvastatin 40 mg tablet 40 mg PO QHS doxycycline hyclate 100 mg capsule 100 mg PO BID losartan 25 mg tablet 25 mg PO BID metoprolol tartrate 25 mg tablet 25 mg PO BID dabigatran etexilate [Pradaxa] 150 mg capsule 150 mg PO BID Rx Instructions: take 1 pill (150mg) in the morning then take 1 pill in the evening (150mg) for a total of 300mg. Primary Care Provider: Ida Norris Referrals: Ida Norris DO [Primary Care Provider] - 3-5 Days Disposition Disposition: Home, Self Care
[2022-11-07 23:49] VITALS: BMI 62.7
[2022-11-07] MEDS: Lidocaine 1% (20 ml mdv) 20 ML Vial INFILT (23:49)
[2022-11-07] MEDS: Clindamycin HCl 150 MG Capsule 300 MG PO (23:50)
== END 2022-11-08 01:08 | disposition home or self-care (01) ==
PROVIDERS: Emergency Provider Emergency Medicine; PCP Family Medicine; Visit Provider Emergency Medicine
DX: L02.31 Cutaneous abscess of buttock (principal); J44.9 Chronic obstructive pulmonary disease, unspecified; E66.01 Morbid (severe) obesity due to excess calories; Z68.44 Body mass index [BMI] 60.0-69.9, adult; F17.200 Nicotine dependence, unspecified, uncomplicated; I10 Essential (primary) hypertension; I25.10 Atherosclerotic heart disease of native coronary artery without angina pectoris
CPT/HCPCS: 10060; 99282

== ENCOUNTER 2022-11-19 23:45 | Emergency (ER) | payer MEDICAID, SELFPAY ==
[2022-11-19 23:46] VITALS: BP 149/60; PULSE 94; RESP 20; TEMP 36.6; O2SAT 92; BMI 65.5
--- NOTE | 2022-11-19 23:57 | ED.VIS.CHEST ---
HPI History of Present Illness Chief Complaint: Chest Pain Narrative Narrative: 52-year-old male here with chest pain. Notes chest pain start yesterday. Worse today. Came in because heart rate was elevated at 102-105. States symptoms are constant, worse with exertion, with no alleviating symptoms. The patient denies recent surgery in the last 4 weeks or immobilization in the last 3 days, denies previous diagnosis of PE, hemoptysis, unilateral leg swelling or malignancy with treatment the last 6 months. No estrogen use noted. Dorsal view history of DVT 40 takes Pradaxa. He does note that he was off of his Pradaxa last week for approximately 3 to 4 days given mistake with his medicine. Patient denies sudden onset of pain, no tearing sensation, no migratory symptoms, no new numbness, weakness or loss of sensation. Patient denies family history or personal history of Marfan syndrome or Kimberly-Danlos [facility] Medical History Abscess of deep perineal space Anemia Anxiety Atherosclerotic heart disease of [place] coronary artery without angina pectoris Chest pain Chronic hypoxemic respiratory failure Chronic pain Chronic prescription benzodiazepine use Chronic steroid use Colon polyps COPD (chronic obstructive pulmonary disease) DVT (deep venous thrombosis) Essential hypertension Family history of premature CAD GERD (gastroesophageal reflux disease) Goiter History of Chanel's gangrene HLD (hyperlipidemia) Hypothyroidism IBS (irritable bowel syndrome) Intertrigo Kidney stones Left against medical advice Non-healing surgical wound NSTEMI, initial episode of care On home oxygen therapy BERT (obstructive sleep apnea) Pain in scapula Rheumatoid arthritis Sleep apnea Smoker Super obesity Superficial thrombophlebitis of leg Thrush Type 2 diabetes mellitus Ulcer of scrotum Home Medications diazepam 10 mg tablet (Valium) 10 mg PO 4X/DAY PRN Anxiety 03/03/16 [History Last Taken 08/15/22] albuterol sulfate 90 mcg/actuation aerosol inhaler (Ventolin HFA) 1 - 2 puff inhalation UD PRN Sob &/Or Wheezing 07/07/20 [History Last Taken 08/11/22] ascorbic acid (vitamin C) 500 mg capsule 500 mg PO DAILY SUPPLEMENT 07/07/20 [History Last Taken 08/16/22] gabapentin 100 mg capsule 100 mg PO QHS neuropathy 07/07/20 [History Last Taken 08/15/22] omeprazole 20 mg capsule,delayed release 20 mg PO BID ACID REFLUX 07/07/20 [History Last Taken 08/16/22] glipizide 2.5 mg tablet, extended release 24 hr 2.5 mg PO DAILY DIABETES 09/06/21 [History Last Taken Unknown] furosemide 20 mg tablet 40 mg PO DAILY FLUID 03/12/22 [History Last Taken 08/16/22] ammonium lactate 12 % topical cream 1 applic topical BID LEGS 08/16/22 [History Last Taken 08/15/22] aspirin 81 mg tablet,delayed release 81 mg PO DAILY HEART HEALTH 08/16/22 [History Last Taken 08/16/22] atorvastatin 40 mg tablet 40 mg PO QHS CHOLESTEROL 08/16/22 [History Last Taken 08/15/22] bumetanide 1 mg tablet 1 - 2 mg PO DAILY PRN FLUID 08/16/22 [History Last Taken Unknown] cholecalciferol (vitamin D3) 1,250 mcg (50,000 unit) capsule 1,250 mcg PO TH SUPPLEMENT 08/16/22 [History Last Taken Unknown] dabigatran etexilate 150 mg capsule (Pradaxa) 150 mg PO BID BLOOD THINNER 08/16/22 [History Last Taken 08/16/22] doxycycline hyclate 100 mg capsule 100 mg PO BID INFECTIONS 08/16/22 [History Last Taken 08/09/22] fluticasone propionate 50 mcg/actuation nasal spray,suspension 2 spray intranasal DAILY PRN Nasal Congestion 08/16/22 [History Last Taken Unknown] furosemide 20 mg tablet 20 mg PO LUNCH FLUID 08/16/22 [History Last Taken Unknown] levothyroxine 150 mcg tablet 300 mcg PO DAILY THYROID 08/16/22 [History Last Taken 08/16/22] losartan 25 mg tablet 25 mg PO BID BLOOD PRESSURE 08/16/22 [History Last Taken 08/16/22] metoprolol tartrate 25 mg tablet 25 mg PO BID BLOOD PRESSURE 08/16/22 [History Last Taken 08/16/22] miconazole nitrate 2 % topical cream 1 applic topical BID FUNGAL INFECTION 08/16/22 [History Last Taken 08/16/22] nicotine 21 mg/24 hr daily transdermal patch 1 patch transdermal DAILY NICOTINE WITHDRAWAL 08/16/22 [History Last Taken 08/15/22] nystatin 100,000 unit/gram topical powder (Nyamyc) 1 applic topical BID SKIN FOLDS 08/16/22 [History Last Taken 08/15/22] oxycodone 5 mg tablet 5 mg PO Q6H PRN Pain 08/16/22 [History Last Taken Unknown] prednisone 10 mg tablet 10 mg PO BID STEROID 08/16/22 [History Last Taken 08/16/22] ticagrelor 90 mg tablet (Brilinta) 90 mg PO BID BLOOD THINNER 08/16/22 [History Last Taken 08/16/22] clindamycin HCl 300 mg capsule (Cleocin HCl) 300 mg PO Q6H #40 CAPSULES 11/07/22 [Rx Last Taken Unknown] Allergy/AdvReac Type Severity Reaction Status Date / Time Penicillins Allergy Hives Verified 11/19/22 23:48 Sulfa (Sulfonamide Allergy Hives Verified 11/19/22 23:48 Antibiotics) etanercept [From Enbrel] AdvReac Swelling Verified 11/19/22 23:48 rivaroxaban [From Xarelto] AdvReac Nausea Verified 11/19/22 23:48 warfarin sodium AdvReac Nausea Verified 11/19/22 23:48 [From Coumadin] Family History Other Cancer Heart disease Kidney disease Surgical History History of coronary artery stent placement (03/25/21) Social History household members: family Smoking Status: Heavy Smoker (>10/day) substance use type: does not use ROS ROS ED ROS Narrative Constitutional: Denies fever HEENT: Denies sore throat Neck: Denies neck pain Cardiovascular: Endorses chest pain, elevated heart rate Respiratory: Denies shortness of breath GI: Denies nausea vomiting or abdominal pain : Denies changes in urinary habits Musculoskeletal: Denies muscle or joint pain Neurologic: Denies numbness weakness or loss of sensation Skin denies rash EXAM Physical Exam Narrative Exam Narrative: Nursing triage notes reviewed, Vital signs reviewed Constitutional: please see mdm, obese HENT: MMM Eyes: Pupils equal round and reactive to light, Extraocular muscles intact Neck: No stridor, no JVD, full neck ROM Lungs: Clear to auscultation, No wheezing or rales. No increased work of breathing, no conversational dyspnea, no accessory muscle use, no nasal flaring. No respiratory distress noted Heart: Regular rate and rhythm, No murmurs, No rubs and No gallops, 2+ distal pulses (radial, femoral, posterior tibial) in all extremities Abdomen: Soft, there is no tenderness, rigidity, rebound or guarding, no obvious peritoneal signs, no palpable pulsatile abdominal masses, no auscultated abdominal bruit : No CVAT Extremities: Chronic appearing lower extremity edema noted Neuro: No focal neurological deficits, cranial nerves II through XII intact, 5/5 strength in all extremities. Intact sensation to light touch in all extremities, 2+ reflexes bilateral patella dens. Normal gait. No ataxia. Skin: No rash or lesions noted Const Vital Signs: 11/19/22 23:46 11/19/22 23:50 11/20/22 00:28 Temperature 98 F Temperature Source Temporal Pulse Rate 94 Respiratory Rate 20 H Respiratory Effort Short of Breath Labored Blood Pressure 149/60 H Blood Pressure Mean 89 Pulse Ox 92 Oxygen Delivery Method Nasal Cannula Nasal Cannula Oxygen Flow Rate (L/min) 4 4 11/20/22 01:01 11/20/22 01:08 11/20/22 01:13 Temperature Temperature Source Pulse Rate 161 H 146 H 130 H Respiratory Rate Respiratory Effort Blood Pressure Blood Pressure Mean Pulse Ox Oxygen Delivery Method Oxygen Flow Rate (L/min) 11/20/22 02:36 Temperature Temperature Source Pulse Rate 78 Respiratory Rate 29 H Respiratory Effort Blood Pressure Blood Pressure Mean Pulse Ox 95 Oxygen Delivery Method Oxygen Flow Rate (L/min) Heart Score History: Slightly/Non-Suspicious ECG: Nonspecific Repolarization Age: >45 - <65 years Risk Factors: >/= 3 Risk Factors or History of CAD Troponin: </= Normal Limit Score: 4 MDM MDM MDM Narrative Medical decision making narrative: Chief Complaint: Chest pain External records reviewed: No recent cardiac catheterizations, stress test or echocardiograms noted in the chart MDM: Patient was initially mildly hypertensive, otherwise hemodynamically stable afebrile and nontoxic-appearing. Patient did have transient tachycardia as high as 1 30-1 40 here in the emergency department. Exam without focal cardiopulmonary abnormalities. I considered the following differential diagnosis: PE, pneumonia, CHF, anemia, ACS, arrhythmia EKG without evidence of ACS or arrhythmia. No evidence of CHF or pneumonia on the patient's chest x-ray. He did have baseline leukocytosis and anemia. There is no signs of significant electrolyte abnormalities or significant new anemia to contribute to chest pain and elevated heart rate. I treated the patient with 3 doses of IV metoprolol with improvement in his transient tachycardia. He stated after this treatment he felt much better. It was difficult to obtain adequate IV access for a contrasted study. We attempted 4 times. Each time we achieved IV access however they blew upon contrast injection by radiology. We were unable to obtain a definitive CT of the chest rule out PE. I did have a shared decision-making discussion with the patient. He stated he does not want to be poked anymore. He refused central line placement. We did not obtain a definitive CT scan at this time. I was reassured because the patient felt better had normal vitals and is already on Pradaxa for anticoagulation. I discussed with the patient is elevated heart score of 4. I discussed with the patient his elevated risk of Mace over the next 6 weeks. I noted his risk is 12 to 16%. I discussed admission for serial cardiac biomarkers, telemetry monitoring and possible provocative testing. Patient was alert and oriented x3 and had capacity to make his own medical decisions. In the presence of his he stated he did not want to stay over night for additional testing. He states he has home health care and he can follow with his dispatcher motor vehicle the next billable appointment. We discussed return precautions and follow-up instructions. The patient expressed understanding. He was discharged in stable condition Factors affecting care: History of stent, hypertension, COPD on 4 L chronic nasal cannula Social determinants of health: None History obtained from others: The patient's Shared decision making: I will have a discussion with the patient and or visitors regarding risk/benefits of further testing or admission. They will be made aware of of the risk/benefits inherent in this decision they will be given the opportunity to voice understanding. Consults: None Lab Data Attestation: I reviewed the patient's lab results. Lab results narrative: EKG with normal sinus rhythm, left axis deviation, right bundle branch block, no STEMI similar to prior EKG on August 16, 2022 with no new ischemic changes CBC with baseline leukocytosis, mild anemia at baseline, no thrombocytopenia\ BMP without evidence of significant electrolyte abnormalities, no anion gap, no acute kidney injury. Troponin negative x2 suggest no myocardial ischemia Labs: Laboratory Results - last 24 hr 11/19/22 11/19/22 11/20/22 23:52 23:52 02:30 WBC 15.6 H RBC 4.43 L Hgb 9.0 L Hct 35.3 L MCV 79.7 L MCH 20.3 L MCHC 25.5 L RDW Std Deviation 52.8 H RDW Coeff of Kris 18.4 H Plt Count 375 MPV 9.4 Immature Gran % (Auto) 0.600 Neut % (Auto) 78.0 H Lymph % (Auto) 15.2 L Randolph % (Auto) 4.6 Eos % (Auto) 1.3 Baso % (Auto) 0.3 Absolute Neuts (auto) 12.2 H Absolute Lymphs (auto) 2.37 Nucleated RBC % 0 Sodium 136 Potassium 3.8 Chloride 100 Carbon Dioxide 31.0 Anion Gap 5 BUN 16 Creatinine 1.33 H Estim Creat Clear Calc 72.59 Est GFR (MDRD) Af Amer 72 Est GFR (MDRD) Non-Af 60 BUN/Creatinine Ratio 12.0 Glucose 272 H Calcium 8.6 Troponin I High Sens 10 11 Radiography Chest X-Ray - ED: Read by ED Physician Diagnostic Testing: Clinical Impression(s) from Imaging Studies Chest X-Ray 11/20/22 00:00 IMPRESSION: Chronic interstitial and old granulomatous disease. No acute cardiopulmonary pathology. Electronically Signed: Alessia Amin MD at 0:53 EDT Reading Location ID and State: [facility] / [place] Tel , Service support , Chest x-ray shows chronic interstitial changes, no obvious focal consolidation when compared to prior x-ray on August 16, 2022 Discharge Plan Triage Chief Complaint: Chest Pain ED Provider: Jose Epstein Dx/Rx/DC Orders Clinical Impression: Chest pain, Tachycardia Instructions: ED Chest Pain, Uncertain Cause Prescriptions: No Action glipizide 2.5 mg tablet extended release 24hr 2.5 mg PO DAILY furosemide 20 mg tablet 40 mg PO DAILY diazepam [Valium] 10 MG tablet 10 mg PO 4X/DAY PRN (Reason: Anxiety) omeprazole 20 MG capsule,delayed release(DR/EC) 20 mg PO BID gabapentin 100 MG capsule 100 mg PO QHS albuterol sulfate [Ventolin HFA] 1 INHALER inhaler 1 - 2 puff INHALATION UD PRN (Reason: Sob &/Or Wheezing) Rx Instructions: INHALE 1 TO 2 PUFFS BY MOUTH AND INTO THE LUNGS EVERY 4 TO 6 HOURS NEEDED ascorbic acid (vitamin C) 500 MG capsule 500 mg PO DAILY prednisone 10 mg Tablet 10 mg PO BID oxycodone 5 mg Tablet 5 mg PO Q6H PRN (Reason: Pain) Brilinta 90 mg Tablet 90 mg PO BID miconazole nitrate 2 % cream 1 applic TOPICAL BID Label Comments: apply to affected area twice a day aspirin 81 mg tablet,delayed release (DR/EC) 81 mg PO DAILY levothyroxine 150 mcg tablet 300 mcg PO DAILY Label Comments: take 2 tablets by mouth once daily nicotine 21 mg/24 hr patch 24 hour 1 patch transdermal DAILY bumetanide 1 mg tablet 1 - 2 mg PO DAILY PRN (Reason: FLUID) ammonium lactate 12 % cream 1 applic TOPICAL BID furosemide 20 mg tablet 20 mg PO LUNCH nystatin [Nyamyc] 100,000 unit/gram powder 1 applic TOPICAL BID Label Comments: apply to affected area once daily to twice a day fluticasone propionate 50 mcg/actuation spray,suspension 2 spray INTRANASAL DAILY PRN (Reason: Nasal Congestion) Label Comments: instill 2 sprays into each nostril once daily cholecalciferol (vitamin D3) 1,250 mcg (50,000 unit) capsule 1,250 mcg PO TH Label Comments: take 1 capsule by mouth every week atorvastatin 40 mg tablet 40 mg PO QHS doxycycline hyclate 100 mg capsule 100 mg PO BID losartan 25 mg tablet 25 mg PO BID metoprolol tartrate 25 mg tablet 25 mg PO BID dabigatran etexilate [Pradaxa] 150 mg capsule 150 mg PO BID Rx Instructions: take 1 pill (150mg) in the morning then take 1 pill in the evening (150mg) for a total of 300mg. clindamycin HCl [Cleocin HCl] 300 mg capsule 300 mg PO Q6H Qty: 40 0RF Primary Care Provider: Ida Norris Referrals: Ida Norris DO [Primary Care Provider] - Activity Restrictions/Additional Instructions: Thank you for trusting us with your care today! Please return if develop worsening chest pain, elevated heart rate, if you lose consciousness. If you notice your heart rate is greater than 110 and your top number of your blood pressure is greater than 100 you should take an additional dose of your metoprolol to control your heart rate. With your dispatcher motor vehicle the next billable appointment. Please take Tylenol (2 pills, 650 mg), ibuprofen (2 pills, 400 mg) every 6 hours as needed for pain and fever control. Please return to the emergency department if your symptoms change or worsen. Please follow with your primary care physician for further outpatient evaluation and management. Disposition Disposition: Home, Self Care
--- NOTE | 2022-11-19 23:59 | EKG12_ITS ---
Test Reason : CP Blood Pressure : / mmHG Vent. Rate : 093 BPM Atrial Rate : 093 BPM P-R Int : 172 ms QRS Dur : 134 ms QT Int : 382 ms P-R-T Axes : 047 -47 027 degrees QTc Int : 474 ms Normal sinus rhythm Right bundle branch block Left anterior fascicular block Bifascicular block Abnormal ECG Confirmed by EDWARDO CONNELLY MD ([id number]), make up editor СЕРГЕЙ GIRALDO ([id number]) on 11/21/2022 2:24:28 PM Referred By: SUNITHA Confirmed By:EDWARDO CONNELLY MD
--- NOTE | 2022-11-20 | RAD_ITS ---
INDICATION: chest pain EXAMINATION/TECHNIQUE: X-RAY - XR Chest 1 View COMPARISON: 08/16/2022 FINDINGS: Bilateral perihilar interstitial thickening. Calcified granuloma in the right upper lobe.. There is no demonstrated pleural abnormality. Heart is mildly enlarged.. Normal mediastinum and albin. Normal visualized pulmonary arteries. Normal visualized aortic arch and descending thoracic aorta. Normal visualized thoracic spine. Normal visualized ribs, clavicles, and shoulders. There is no demonstrated abnormality of the visualized soft tissue structures of the upper abdomen. Findings are similar to that seen on prior exam RAD/Chest 1 View (Portable) IMPRESSION: Chronic interstitial and old granulomatous disease. No acute cardiopulmonary pathology. Electronically Signed: Alessia Amin MD at 0:53 EDT ,
[2022-11-20 00:13] LABS: Absolute Lymphocyte Count 2.37 X10^3/uL (0.83-4.51); Absolute Neutrophil Count 12.2 X10^3/uL (2.0-7.7); Basophil# 0.05 X10^3/uL; Basophil% 0.3 % (0-1); Eosinophil# 0.21 X10^3/uL; Eosinophils% 1.3 % (0-5); Hematocrit 35.3 % (40-54); Lymphocyte # 2.37 X10^3/ul (0.83-4.51); Lymphocyte % 15.2 % (19-41); Mean Corp Hgb Conc 25.5 g/dL (32-36); Mean Corpuscular Hgb 20.3 pg (27.0-32.0); Mean Corpuscular Volume 79.7 fL (80-94); Mean Platelet Vol. 9.4 fl (6.2-12.0); Monocyte# 0.72 X10^3/uL; Monocyte% 4.6 % (0-10); NRBC Flagged by Analyzer 0 % (0-5); Neutrophil # 12.18 X10^3/uL (2.7-7.7); Platelet Count 375 K/mm3 (150-450); RBC Distribution Width CV 18.4 % (11.6-14.6); RBC Distribution Width SD 52.8 fl (35.1-43.9); Red Blood Count 4.43 M/mm3 (4.6-6.2); White Blood Count 15.6 K/mm3 (4.4-11.0)
[2022-11-20] MEDS: Aspirin 81 MG TAB.CHEW 324 MG PO (00:28)
[2022-11-20 00:39] LABS: Anion Gap 5 (5-15); BUN 16 mg/dL (7-18); Calcium,Total 8.6 mg/dL (8.5-10.1); Chloride 100 mmol/L (98-107); Creatinine, Serum 1.33 mg/dL (0.70-1.30); EST Glomerular Filtration Rate 60 mL/min (>60); Est Glom Filt Rate - Afr Amer 72 mL/min (>60); Estimated Creatinine Clearance 72.59 ml/min; Glucose 272 mg/dL (74-106); Potassium 3.8 mmol/L (3.5-5.1); Sodium Level 136 mmol/L (136-145); Troponin-I HS (w/2H Reflex) 10 pg/mL (3.0-78.0)
[2022-11-20 01:01] VITALS: PULSE 161
[2022-11-20] MEDS: Metoprolol Tartrate 5 MG/5 ML Vial IV ×3 (01:01→01:12)
[2022-11-20 01:08] VITALS: PULSE 146
[2022-11-20 01:13] VITALS: PULSE 130
[2022-11-20 02:10] LABS: Reflex Troponin-HS? (from REC) Y
[2022-11-20 02:36] VITALS: PULSE 78; RESP 29; O2SAT 95
[2022-11-20 02:59] LABS: Troponin-I HS 11 pg/mL (3.0-78.0)
[2022-11-20 03:29] VITALS: BP 146/76; PULSE 77; RESP 25; O2SAT 96
== END 2022-11-20 03:30 | disposition home or self-care (01) ==
PROVIDERS: Emergency Provider Emergency Medicine; PCP Family Medicine; Visit Provider Emergency Medicine
DX: R07.9 Chest pain, unspecified (principal); J44.9 Chronic obstructive pulmonary disease, unspecified; R00.0 Tachycardia, unspecified; I10 Essential (primary) hypertension; I25.10 Atherosclerotic heart disease of native coronary artery without angina pectoris; F17.200 Nicotine dependence, unspecified, uncomplicated; E78.5 Hyperlipidemia, unspecified
CPT/HCPCS: 71045; 80048; 84484; 85025; 93005; 99285; J7030; A4216

== ENCOUNTER 2022-11-21 03:03 | Emergency (ER) | payer MEDICAID, SELFPAY ==
[2022-11-21 03:04] VITALS: BP 184/91; PULSE 95; RESP 36; TEMP 37.1; O2SAT 94; BMI 65.0
--- NOTE | 2022-11-21 03:16 | EKG12_ITS ---
Test Reason : CP Blood Pressure : / mmHG Vent. Rate : 090 BPM Atrial Rate : 090 BPM P-R Int : 172 ms QRS Dur : 140 ms QT Int : 400 ms P-R-T Axes : 060 -47 025 degrees QTc Int : 489 ms Normal sinus rhythm Right bundle branch block Left anterior fascicular block Bifascicular block Possible Lateral infarct , age undetermined Abnormal ECG Confirmed by GODWIN MEZA, EDWARDO ([id number]), market editor ALF RUCKER ([id number]) on 11/24/2022 12:37:52 PM Referred By: JEN Confirmed By:EDWARDO CONNELLY MD
--- NOTE | 2022-11-21 03:26 | ED.VIS.CHEST ---
HPI History of Present Illness Chief Complaint: Chest Pain Narrative Narrative: Patient presents with chest pain, he was seen last night for similar symptoms and was ruled out, his pink continues however he tells me the reason he returned is because he is read the discharge instructions and thought it blood pressure was high. He had followed up with his material handler loader who told him to double up on his Toprol all at home. He has no pleuritic component. He has no back pain or tearing sensation. [facility] Medical History Abscess of deep perineal space Anemia Anxiety Atherosclerotic heart disease of [place] coronary artery without angina pectoris Chest pain Chronic hypoxemic respiratory failure Chronic pain Chronic prescription benzodiazepine use Chronic steroid use Colon polyps COPD (chronic obstructive pulmonary disease) DVT (deep venous thrombosis) Essential hypertension Family history of premature CAD GERD (gastroesophageal reflux disease) Goiter History of Chanel's gangrene HLD (hyperlipidemia) Hypothyroidism IBS (irritable bowel syndrome) Intertrigo Kidney stones Left against medical advice Non-healing surgical wound NSTEMI, initial episode of care On home oxygen therapy BERT (obstructive sleep apnea) Pain in scapula Rheumatoid arthritis Sleep apnea Smoker Super obesity Superficial thrombophlebitis of leg Thrush Type 2 diabetes mellitus Ulcer of scrotum Home Medications diazepam 10 mg tablet (Valium) 10 mg PO 4X/DAY PRN Anxiety 03/03/16 [History Last Taken 08/15/22] albuterol sulfate 90 mcg/actuation aerosol inhaler (Ventolin HFA) 1 - 2 puff inhalation UD PRN Sob &/Or Wheezing 07/07/20 [History Last Taken 08/11/22] ascorbic acid (vitamin C) 500 mg capsule 500 mg PO DAILY SUPPLEMENT 07/07/20 [History Last Taken 08/16/22] gabapentin 100 mg capsule 100 mg PO QHS neuropathy 07/07/20 [History Last Taken 08/15/22] omeprazole 20 mg capsule,delayed release 20 mg PO BID ACID REFLUX 07/07/20 [History Last Taken 08/16/22] glipizide 2.5 mg tablet, extended release 24 hr 2.5 mg PO DAILY DIABETES 09/06/21 [History Last Taken Unknown] furosemide 20 mg tablet 40 mg PO DAILY FLUID 03/12/22 [History Last Taken 08/16/22] ammonium lactate 12 % topical cream 1 applic topical BID LEGS 08/16/22 [History Last Taken 08/15/22] aspirin 81 mg tablet,delayed release 81 mg PO DAILY HEART HEALTH 08/16/22 [History Last Taken 08/16/22] atorvastatin 40 mg tablet 40 mg PO QHS CHOLESTEROL 08/16/22 [History Last Taken 08/15/22] bumetanide 1 mg tablet 1 - 2 mg PO DAILY PRN FLUID 08/16/22 [History Last Taken Unknown] cholecalciferol (vitamin D3) 1,250 mcg (50,000 unit) capsule 1,250 mcg PO TH SUPPLEMENT 08/16/22 [History Last Taken Unknown] dabigatran etexilate 150 mg capsule (Pradaxa) 150 mg PO BID BLOOD THINNER 08/16/22 [History Last Taken 08/16/22] doxycycline hyclate 100 mg capsule 100 mg PO BID INFECTIONS 08/16/22 [History Last Taken 08/09/22] fluticasone propionate 50 mcg/actuation nasal spray,suspension 2 spray intranasal DAILY PRN Nasal Congestion 08/16/22 [History Last Taken Unknown] furosemide 20 mg tablet 20 mg PO LUNCH FLUID 08/16/22 [History Last Taken Unknown] levothyroxine 150 mcg tablet 300 mcg PO DAILY THYROID 08/16/22 [History Last Taken 08/16/22] losartan 25 mg tablet 25 mg PO BID BLOOD PRESSURE 08/16/22 [History Last Taken 08/16/22] metoprolol tartrate 25 mg tablet 50 mg PO BID BLOOD PRESSURE 08/16/22 [History Last Taken 08/16/22] miconazole nitrate 2 % topical cream 1 applic topical BID FUNGAL INFECTION 08/16/22 [History Last Taken 08/16/22] nicotine 21 mg/24 hr daily transdermal patch 1 patch transdermal DAILY NICOTINE WITHDRAWAL 08/16/22 [History Last Taken 08/15/22] nystatin 100,000 unit/gram topical powder (Nyamyc) 1 applic topical BID SKIN FOLDS 08/16/22 [History Last Taken 08/15/22] oxycodone 5 mg tablet 5 mg PO Q6H PRN Pain 08/16/22 [History Last Taken Unknown] prednisone 10 mg tablet 10 mg PO BID STEROID 08/16/22 [History Last Taken 08/16/22] ticagrelor 90 mg tablet (Brilinta) 90 mg PO BID BLOOD THINNER 08/16/22 [History Last Taken 08/16/22] clindamycin HCl 300 mg capsule (Cleocin HCl) 300 mg PO Q6H #40 CAPSULES 11/07/22 [Rx Last Taken Unknown] Allergy/AdvReac Type Severity Reaction Status Date / Time Penicillins Allergy Hives Verified 11/21/22 03:08 Sulfa (Sulfonamide Allergy Hives Verified 11/21/22 03:08 Antibiotics) etanercept [From Enbrel] AdvReac Swelling Verified 11/21/22 03:08 rivaroxaban [From Xarelto] AdvReac Nausea Verified 11/21/22 03:08 warfarin sodium AdvReac Nausea Verified 11/21/22 03:08 [From Coumadin] Family History Other Cancer Heart disease Kidney disease Surgical History History of coronary artery stent placement (03/25/21) Social History household members: family Smoking Status: Heavy Smoker (>10/day) substance use type: does not use ROS ROS ED ROS Narrative Past medical history: Reviewed Medications: Reviewed Social history: Noncontributory Review of systems: All systems negative except as indicated General: No fever Eyes: No visual changes ENT: No upper airway congestion, normal voice Neck: No neck pain Cardiovascular: Some chest pain as in HPI Respiratory: Chronic dyspnea due to COPD, he is on home oxygen, at this time his breathing is unchanged and at baseline. Gastrointestinal: No abdominal pain, nausea vomiting or diarrhea Genitourinary: No dysuria Musculoskeletal: Denies myalgias no difficulty with ambulation Skin: No rash EXAM Physical Exam Narrative Exam Narrative: Physical exam General: Obese male who appears relatively comfortable Head: Normocephalic, Atraumatic Eyes: Conjunctiva not pale ENT: Moist mucous membranes Neck: Supple, Nontender, No lymphadenopathy Cardiovascular: Regular rate, Regular rhythm. No obvious murmur Respiratory: Coarse bilateral breath sounds auscultation is quite difficult secondary to his body habitus Abdomen: Soft, Nontender, Nondistended Back: Nontender, Normal Inspection. Negative for: CVA tenderness Extremities: Chronic bilateral lower extremity lymphedema Skin: Normal color, No rash Neurological: Alert, Normal Strength, Normal Sensation Const Vital Signs: 11/21/22 03:04 11/21/22 03:08 11/21/22 03:33 Temperature 98.7 F Temperature Source Temporal Pulse Rate 95 122 H Respiratory Rate 36 H 18 Respiratory Effort Normal Respiratory Pattern Normal Blood Pressure 184/91 H 144/69 H Blood Pressure Mean 122 94 Pulse Ox 94 Oxygen Delivery Method Nasal Cannula Oxygen Flow Rate (L/min) 4 MDM MDM MDM Narrative Medical decision making narrative: A. Problems addressed Patient is now asymptomatic he says he feels better. I did not give him any medications. His troponin is the same as yesterday. His blood pressure is now 116/90. I believe he can be safely discharged home. He is to take his home medications as written by his material handler loader B. Amount and/or complexity of the data 1. CBC CMP and troponin were ordered interpreted by me 2. Independent interpretation of test Telemetry: Sinus rhythm with a rate in the 90s. No ectopy. C. Patient was seen by me in the emergency department. I have considered the following differential diagnoses however I was able to exclude all of these through a thorough history and physical exam as well as laboratory testing: PE or any thromboembolic etiologies, myocardial infarction, aortic dissection, esophageal rupture, pneumothorax, musculoskeletal emergencies, upper abdominal pathologies such as pancreatitis, cholecystitis or choledocholithiasis, as well as ruptured bowel. I considered admission but after discussion with the patient we came to a mutual agreement that the patient is stable for discharge, he significantly improved. His troponins are negative. I am not worried about thromboembolic disease. His heart rate is now normal. He will be discharged per his request which is quite reasonable. Lab Data Labs: Laboratory Results - last 24 hr 11/21/22 11/21/22 03:25 03:25 WBC 15.7 H RBC 4.31 L Hgb 8.8 L Hct 33.2 L MCV 77.0 L MCH 20.4 L MCHC 26.5 L RDW Std Deviation 50.5 H RDW Coeff of Kris 18.2 H Plt Count 349 MPV 8.7 Immature Gran % (Auto) 0.600 Neut % (Auto) 81.1 H Lymph % (Auto) 13.5 L [place] % (Auto) 3.6 Eos % (Auto) 0.9 Baso % (Auto) 0.3 Absolute Neuts (auto) 12.8 H Absolute Lymphs (auto) 2.13 Nucleated RBC % 0 Sodium 135 L Potassium 3.8 Chloride 99 Carbon Dioxide 32.0 Anion Gap 4 L BUN 13 Creatinine 1.28 Estim Creat Clear Calc 75.43 Est GFR (MDRD) Af Amer 76 Est GFR (MDRD) Non-Af 62 BUN/Creatinine Ratio 10.2 Glucose 185 H Calcium 8.7 Total Bilirubin 0.40 AST 13 L ALT 21 Alkaline Phosphatase 115 Troponin I High Sens 12 Total Protein 7.3 Albumin 2.6 L Globulin 4.7 H Albumin/Globulin Ratio 0.6 L EKG Initial EKG: Comments: Sinus rhythm with a rate in 90. Normal WA interval. QTc is 489. Nonspecific intraventricular conduction delay. EKG is unchanged from prior EKG. Interpreted by emergency doctor Discharge Plan Triage Chief Complaint: Chest Pain ED Provider: Paul Floyd Dx/Rx/DC Orders Clinical Impression: Chest pain, Essential hypertension Instructions: Controlling High Blood Pressure Prescriptions: No Action glipizide 2.5 mg tablet extended release 24hr 2.5 mg PO DAILY furosemide 20 mg tablet 40 mg PO DAILY diazepam [Valium] 10 MG tablet 10 mg PO 4X/DAY PRN (Reason: Anxiety) omeprazole 20 MG capsule,delayed release(DR/EC) 20 mg PO BID gabapentin 100 MG capsule 100 mg PO QHS albuterol sulfate [Ventolin HFA] 1 INHALER inhaler 1 - 2 puff INHALATION UD PRN (Reason: Sob &/Or Wheezing) Rx Instructions: INHALE 1 TO 2 PUFFS BY MOUTH AND INTO THE LUNGS EVERY 4 TO 6 HOURS NEEDED ascorbic acid (vitamin C) 500 MG capsule 500 mg PO DAILY prednisone 10 mg Tablet 10 mg PO BID oxycodone 5 mg Tablet 5 mg PO Q6H PRN (Reason: Pain) Brilinta 90 mg Tablet 90 mg PO BID miconazole nitrate 2 % cream 1 applic TOPICAL BID Label Comments: apply to affected area twice a day aspirin 81 mg tablet,delayed release (DR/EC) 81 mg PO DAILY levothyroxine 150 mcg tablet 300 mcg PO DAILY Label Comments: take 2 tablets by mouth once daily nicotine 21 mg/24 hr patch 24 hour 1 patch transdermal DAILY bumetanide 1 mg tablet 1 - 2 mg PO DAILY PRN (Reason: FLUID) ammonium lactate 12 % cream 1 applic TOPICAL BID furosemide 20 mg tablet 20 mg PO LUNCH nystatin [Nyamyc] 100,000 unit/gram powder 1 applic TOPICAL BID Label Comments: apply to affected area once daily to twice a day fluticasone propionate 50 mcg/actuation spray,suspension 2 spray INTRANASAL DAILY PRN (Reason: Nasal Congestion) Label Comments: instill 2 sprays into each nostril once daily cholecalciferol (vitamin D3) 1,250 mcg (50,000 unit) capsule 1,250 mcg PO TH Label Comments: take 1 capsule by mouth every week atorvastatin 40 mg tablet 40 mg PO QHS doxycycline hyclate 100 mg capsule 100 mg PO BID losartan 25 mg tablet 25 mg PO BID metoprolol tartrate 25 mg tablet 50 mg PO BID dabigatran etexilate [Pradaxa] 150 mg capsule 150 mg PO BID Rx Instructions: take 1 pill (150mg) in the morning then take 1 pill in the evening (150mg) for a total of 300mg. clindamycin HCl [Cleocin HCl] 300 mg capsule 300 mg PO Q6H Qty: 40 0RF Primary Care Provider: Ida Norris Referrals: Ida Norris DO [Primary Care Provider] - 3-5 Days Disposition Disposition: Home, Self Care
[2022-11-21 03:30] LABS: Absolute Lymphocyte Count 2.13 X10^3/uL (0.83-4.51); Absolute Neutrophil Count 12.8 X10^3/uL (2.0-7.7); Basophil# 0.04 X10^3/uL; Basophil% 0.3 % (0-1); Eosinophil# 0.14 X10^3/uL; Eosinophils% 0.9 % (0-5); Hematocrit 33.2 % (40-54); Hemoglobin 8.8 g/dL (13.0-16.5); Lymphocyte # 2.13 X10^3/ul (0.83-4.51); Lymphocyte % 13.5 % (19-41); Mean Corp Hgb Conc 26.5 g/dL (32-36); Mean Corpuscular Hgb 20.4 pg (27.0-32.0); Mean Platelet Vol. 8.7 fl (6.2-12.0); Monocyte# 0.56 X10^3/uL; Monocyte% 3.6 % (0-10); NRBC Flagged by Analyzer 0 % (0-5); Neutrophil # 12.77 X10^3/uL (2.7-7.7); Neutrophil % 81.1 % (47-70); Platelet Count 349 K/mm3 (150-450); RBC Distribution Width CV 18.2 % (11.6-14.6); RBC Distribution Width SD 50.5 fl (35.1-43.9); Red Blood Count 4.31 M/mm3 (4.6-6.2); White Blood Count 15.7 K/mm3 (4.4-11.0)
[2022-11-21 03:33] VITALS: BP 144/69; PULSE 122; RESP 18
[2022-11-21 03:48] LABS: ALB/GLOB Ratio 0.6 RATIO (0.9-2.4); AST(SGOT) 13 U/L (15-37); Alanine Aminotransfer ALT/SGPT 21 U/L (16-61); Albumin, Serum 2.6 g/dL (3.2-5.0); Alkaline Phosphatase 115 U/L (45-117); Anion Gap 4 (5-15); BUN 13 mg/dL (7-18); BUN/Creat Ratio 10.2 RATIO (10-20); Calcium,Total 8.7 mg/dL (8.5-10.1); Chloride 99 mmol/L (98-107); Creatinine, Serum 1.28 mg/dL (0.70-1.30); EST Glomerular Filtration Rate 62 mL/min (>60); Est Glom Filt Rate - Afr Amer 76 mL/min (>60); Estimated Creatinine Clearance 75.43 ml/min; Globulin 4.7 g/dL (2.2-4.2); Glucose 185 mg/dL (74-106); Potassium 3.8 mmol/L (3.5-5.1); Protein, Total 7.3 g/dL (6.4-8.2); Sodium Level 135 mmol/L (136-145); Troponin-I HS 12 pg/mL (3.0-78.0)
[2022-11-21 04:00] VITALS: BP 116/74; PULSE 90; RESP 18
== END 2022-11-21 04:01 | disposition home or self-care (01) ==
PROVIDERS: Emergency Provider Emergency Medicine; PCP Family Medicine; Visit Provider Emergency Medicine
DX: R07.9 Chest pain, unspecified (principal); J44.9 Chronic obstructive pulmonary disease, unspecified; F17.200 Nicotine dependence, unspecified, uncomplicated; I10 Essential (primary) hypertension; I25.10 Atherosclerotic heart disease of native coronary artery without angina pectoris
CPT/HCPCS: 80053; 84484; 85025; 93005; 99283; A4216

== ENCOUNTER 2022-12-03 14:14 | Emergency (ER) | payer MEDICAID, SELFPAY ==
[2022-12-03 14:15] VITALS: BP 133/67; PULSE 119; RESP 20; TEMP 36.3; O2SAT 96
--- NOTE | 2022-12-03 14:25 | EX.ED.DYSGE1 ---
HPI History of Present Illness Chief Complaint: Abscess Detail of Chief Complaint: Abscess proximal posterior left thigh near gluteal fold Informant: patient Onset/Context/Timing Onset: Days Context: Sudden Onset Timing: Continuous Quality: Swollen red painful area Location: Proximal posterior left thigh near gluteal fold Current Severity: Mild Maximum Severity: Moderate Worsened by: Nothing Relieved by: Nothing Associated Symptoms Associated Symptoms: No constitutional symptoms or symptoms of hyperglycemia Narrative Narrative: Patient is a morbidly obese 52-year-old male with obstructive sleep apnea on continuous oxygen who presents with abscess proximal posterior left thigh. He has had recurrent abscesses. He lists allergy to penicillin and sulfa. He denies fever or chills. He denies night sweats. He denies history rheumatic fever, heart murmur, mitral valve prolapse, SBE or being immune suppressed. Patient states he is on a medicine because of the C. On his med list he is noted to be on clindamycin. There is a 2% incidence of failure against MRSA. He has no other symptoms. Prior similar symptoms: Yes Recent Illness/Hospitalization: No PFSH PFSH Medical History Abscess of deep perineal space Anemia Anxiety Atherosclerotic heart disease of [place] coronary artery without angina pectoris Chest pain Chronic hypoxemic respiratory failure Chronic pain Chronic prescription benzodiazepine use Chronic steroid use Colon polyps COPD (chronic obstructive pulmonary disease) DVT (deep venous thrombosis) Essential hypertension Family history of premature CAD GERD (gastroesophageal reflux disease) Goiter History of Chanel's gangrene HLD (hyperlipidemia) Hypothyroidism IBS (irritable bowel syndrome) Intertrigo Kidney stones Left against medical advice Non-healing surgical wound NSTEMI, initial episode of care On home oxygen therapy BERT (obstructive sleep apnea) Pain in scapula Rheumatoid arthritis Sleep apnea Smoker Super obesity Superficial thrombophlebitis of leg Thrush Type 2 diabetes mellitus Ulcer of scrotum Home Medications diazepam 10 mg tablet (Valium) 10 mg PO 4X/DAY PRN Anxiety 03/03/16 [History Last Taken 08/15/22] albuterol sulfate 90 mcg/actuation aerosol inhaler (Ventolin HFA) 1 - 2 puff inhalation UD PRN Sob &/Or Wheezing 07/07/20 [History Last Taken 08/11/22] ascorbic acid (vitamin C) 500 mg capsule 500 mg PO DAILY SUPPLEMENT 07/07/20 [History Last Taken 08/16/22] gabapentin 100 mg capsule 100 mg PO QHS neuropathy 07/07/20 [History Last Taken 08/15/22] omeprazole 20 mg capsule,delayed release 20 mg PO BID ACID REFLUX 07/07/20 [History Last Taken 08/16/22] glipizide 2.5 mg tablet, extended release 24 hr 2.5 mg PO DAILY DIABETES 09/06/21 [History Last Taken Unknown] furosemide 20 mg tablet 40 mg PO DAILY FLUID 03/12/22 [History Last Taken 08/16/22] ammonium lactate 12 % topical cream 1 applic topical BID LEGS 08/16/22 [History Last Taken 08/15/22] aspirin 81 mg tablet,delayed release 81 mg PO DAILY HEART HEALTH 08/16/22 [History Last Taken 08/16/22] atorvastatin 40 mg tablet 40 mg PO QHS CHOLESTEROL 08/16/22 [History Last Taken 08/15/22] bumetanide 1 mg tablet 1 - 2 mg PO DAILY PRN FLUID 08/16/22 [History Last Taken Unknown] cholecalciferol (vitamin D3) 1,250 mcg (50,000 unit) capsule 1,250 mcg PO TH SUPPLEMENT 08/16/22 [History Last Taken Unknown] dabigatran etexilate 150 mg capsule (Pradaxa) 150 mg PO BID BLOOD THINNER 08/16/22 [History Last Taken 08/16/22] doxycycline hyclate 100 mg capsule 100 mg PO BID INFECTIONS 08/16/22 [History Last Taken 08/09/22] fluticasone propionate 50 mcg/actuation nasal spray,suspension 2 spray intranasal DAILY PRN Nasal Congestion 08/16/22 [History Last Taken Unknown] furosemide 20 mg tablet 20 mg PO LUNCH FLUID 08/16/22 [History Last Taken Unknown] levothyroxine 150 mcg tablet 300 mcg PO DAILY THYROID 08/16/22 [History Last Taken 08/16/22] losartan 25 mg tablet 25 mg PO BID BLOOD PRESSURE 08/16/22 [History Last Taken 08/16/22] metoprolol tartrate 25 mg tablet 50 mg PO BID BLOOD PRESSURE 08/16/22 [History Last Taken 08/16/22] miconazole nitrate 2 % topical cream 1 applic topical BID FUNGAL INFECTION 08/16/22 [History Last Taken 08/16/22] nicotine 21 mg/24 hr daily transdermal patch 1 patch transdermal DAILY NICOTINE WITHDRAWAL 08/16/22 [History Last Taken 08/15/22] nystatin 100,000 unit/gram topical powder (Nyamyc) 1 applic topical BID SKIN FOLDS 08/16/22 [History Last Taken 08/15/22] oxycodone 5 mg tablet 5 mg PO Q6H PRN Pain 08/16/22 [History Last Taken Unknown] prednisone 10 mg tablet 10 mg PO BID STEROID 08/16/22 [History Last Taken 08/16/22] ticagrelor 90 mg tablet (Brilinta) 90 mg PO BID BLOOD THINNER 08/16/22 [History Last Taken 08/16/22] clindamycin HCl 300 mg capsule (Cleocin HCl) 300 mg PO Q6H #40 CAPSULES 11/07/22 [Rx Last Taken Unknown] Allergy/AdvReac Type Severity Reaction Status Date / Time Penicillins Allergy Hives Verified 12/03/22 14:17 Sulfa (Sulfonamide Allergy Hives Verified 12/03/22 14:17 Antibiotics) etanercept [From Enbrel] AdvReac Swelling Verified 12/03/22 14:17 rivaroxaban [From Xarelto] AdvReac Nausea Verified 12/03/22 14:17 warfarin sodium AdvReac Nausea Verified 12/03/22 14:17 [From Coumadin] Family History Other Cancer Heart disease Kidney disease Surgical History History of coronary artery stent placement (03/25/21) Social History household members: family Smoking Status: Heavy Smoker (>10/day) substance use type: does not use ROS ROS ED Constitutional Constitutional ED: Denies chills, fever(s), subjective, sweats or weight loss Eyes Eyes: Denies blurry vision, change in vision or diplopia ENT ENT ED: Denies ear pain, rhinorrhea or sore throat Cardiovascular Cardiovascular: Denies chest pain or palpitations Respiratory/Chest Respiratory/Chest: Denies cough, dyspnea or dyspnea on exertion Gastrointestinal Gastrointestinal: Denies nausea or vomiting Genitourinary Genitourinary ED: Denies dysuria, hematuria or urinary frequency Integumentary Reports abscess and rash Neurologic Neurologic: Denies headache(s), paresthesias or weakness Endocrine Endocrinology: Denies cold intolerance or heat intolerance Hematologic/Lymphatic Hematologic/Lymphatic: Reports systems reviewed and no addt'l complaints, except as documented EXAM Physical Exam Const Vital Signs: 12/03/22 14:15 Temperature 97.4 F L Temperature Source Temporal Pulse Rate 119 H Respiratory Rate 20 H Blood Pressure 133/67 H Blood Pressure Mean 89 Pulse Ox 96 Oxygen Delivery Method Nasal Cannula Oxygen Flow Rate (L/min) 4 Positive well nourished, well developed and obese General Appearance ED: well developed and NAD; Negative for diaphoretic or pallor Nutritional Appearance: obese HEENT Reports moist mucous membranes HEENT Narrative: Head is atraumatic normocephalic. Ears normal. Nares patent. Mucosa moist. Eyes PERRL and EOMs intact bilaterally General Eye ED: Negative for pale conjunctiva or scleral icterus Neck no lymphadenopathy, supple and no JVD Resp normal respiratory effort and clear to auscultation bilaterally Cardio regular rhythm, S1 normal heart sound, S2 normal heart sound and no murmurs Rate: tachycardic GI normal to inspection, nondistended, normoactive bowel sounds, non-tender, non-distended and no masses; Negative for hepatosplenomegaly Back/Spine no CVA tenderness Extremity Extremity Narrative: Patient has abscess proximal posterior left thigh as previously described. There is erythema, warmth and fluctuance. There is no lymphangitis. There is no inguinal lymphadenopathy. Neuro oriented x3 and CN's II-XII intact bilaterally Psych mental status grossly normal Skin skin turgor normal General Skin Exam: Negative for jaundice or pallor MDM MDM MDM Narrative Medical decision making narrative: In light of patient's weight, medical problems on continuous oxygen he is not a candidate for sedation in the emergency department. Will anesthetize area by local infiltration and field block. We will then incised the abscess. History & Record Review Additional record(s) reviewed:: Prior outpatient record, Prior ED visit and Prior labs Procedures Other Procedures Procedure(s): Patient was consented for I&D. Patient was prepped draped sterile manner. The area was anesthetized with 1% lidocaine by local infiltration and field block. Incision was made using a 10 blade. Total length of incision 3 cm. There was free flow of thick yellow purulent material noted. Blunt dissection was undertaken with more purulent material noted. Cavity was irrigated. 1 inch iodoform gauze was as a wick. Patient is present on antibiotics. He is allergic to penicillin. Discharge Plan Triage Chief Complaint: Abscess ED Provider: Owen Patel Dx/Rx/DC Orders Clinical Impression: Abscess of buttock, left, HLD (hyperlipidemia), Atherosclerotic heart disease of [place] coronary artery without angina pectoris, Essential hypertension, Cellulitis of buttock, Acute on chronic respiratory failure with hypoxia and hypercapnia Instructions: ED Abscess Incision And Drainage, ED Cellulitis Prescriptions: No Action glipizide 2.5 mg tablet extended release 24hr 2.5 mg PO DAILY furosemide 20 mg tablet 40 mg PO DAILY diazepam [Valium] 10 MG tablet 10 mg PO 4X/DAY PRN (Reason: Anxiety) omeprazole 20 MG capsule,delayed release(DR/EC) 20 mg PO BID gabapentin 100 MG capsule 100 mg PO QHS albuterol sulfate [Ventolin HFA] 1 INHALER inhaler 1 - 2 puff INHALATION UD PRN (Reason: Sob &/Or Wheezing) Rx Instructions: INHALE 1 TO 2 PUFFS BY MOUTH AND INTO THE LUNGS EVERY 4 TO 6 HOURS NEEDED ascorbic acid (vitamin C) 500 MG capsule 500 mg PO DAILY prednisone 10 mg Tablet 10 mg PO BID oxycodone 5 mg Tablet 5 mg PO Q6H PRN (Reason: Pain) Brilinta 90 mg Tablet 90 mg PO BID miconazole nitrate 2 % cream 1 applic TOPICAL BID Label Comments: apply to affected area twice a day aspirin 81 mg tablet,delayed release (DR/EC) 81 mg PO DAILY levothyroxine 150 mcg tablet 300 mcg PO DAILY Label Comments: take 2 tablets by mouth once daily nicotine 21 mg/24 hr patch 24 hour 1 patch transdermal DAILY bumetanide 1 mg tablet 1 - 2 mg PO DAILY PRN (Reason: FLUID) ammonium lactate 12 % cream 1 applic TOPICAL BID furosemide 20 mg tablet 20 mg PO LUNCH nystatin [Nyamyc] 100,000 unit/gram powder 1 applic TOPICAL BID Label Comments: apply to affected area once daily to twice a day fluticasone propionate 50 mcg/actuation spray,suspension 2 spray INTRANASAL DAILY PRN (Reason: Nasal Congestion) Label Comments: instill 2 sprays into each nostril once daily cholecalciferol (vitamin D3) 1,250 mcg (50,000 unit) capsule 1,250 mcg PO TH Label Comments: take 1 capsule by mouth every week atorvastatin 40 mg tablet 40 mg PO QHS doxycycline hyclate 100 mg capsule 100 mg PO BID losartan 25 mg tablet 25 mg PO BID metoprolol tartrate 25 mg tablet 50 mg PO BID dabigatran etexilate [Pradaxa] 150 mg capsule 150 mg PO BID Rx Instructions: take 1 pill (150mg) in the morning then take 1 pill in the evening (150mg) for a total of 300mg. clindamycin HCl [Cleocin HCl] 300 mg capsule 300 mg PO Q6H Qty: 40 0RF Primary Care Provider: Ida Norris Referrals: Ida Norris DO [Primary Care Provider] - 2 Days for wound check Activity Restrictions/Additional Instructions: 1. Take antibiotics you were prescribed by Dr. Norris until gone 2. Visiting nurse may remove wick in 2 to 3 days 3. If you develop a temperature greater than 100 or unable to control your blood sugars return to the emergency department Disposition Disposition: Home, Self Care
[2022-12-03] MEDS: Lidocaine 1% (20 ml mdv) 20 ML Vial INFILT (14:35)
== END 2022-12-03 15:28 | disposition home or self-care (01) ==
PROVIDERS: Emergency Provider Emergency Medicine; PCP Family Medicine; Visit Provider Emergency Medicine
DX: L02.416 Cutaneous abscess of left lower limb (principal); J44.9 Chronic obstructive pulmonary disease, unspecified; J96.21 Acute and chronic respiratory failure with hypoxia; J96.22 Acute and chronic respiratory failure with hypercapnia; E66.01 Morbid (severe) obesity due to excess calories; I10 Essential (primary) hypertension; L03.317 Cellulitis of buttock; G47.33 Obstructive sleep apnea (adult) (pediatric); F17.200 Nicotine dependence, unspecified, uncomplicated; I25.10 Atherosclerotic heart disease of native coronary artery without angina pectoris; E78.5 Hyperlipidemia, unspecified; L02.31 Cutaneous abscess of buttock
CPT/HCPCS: 10060; 99282

== ENCOUNTER 2023-03-16 19:39 | Emergency (ER) | payer MEDICAID, SELFPAY ==
[2023-03-16 19:41] VITALS: BP 147/88; PULSE 115; RESP 16; TEMP 36.6; O2SAT 96
--- NOTE | 2023-03-16 20:26 | EDS_ITS ---
HPI History of Present Illness Chief Complaint: Abscess Detail of Chief Complaint: Possible abscesses. Informant: patient Onset/Context/Timing Onset: Days Context: Gradual Onset Timing: Continuous Current Severity: Mild Maximum Severity: Mild Narrative Narrative: 52-year-old male history of CAD, hypertension and diabetic. History of recurrent abscesses. Knows he has 1 on his left buttocks which is actively draining. Concern he may have 1 in his right groin. 1 to be evaluated to see if they need drained. The left buttock abscess has been draining on its own. He denies any fever. He is currently on Bactrim twice a day from his primary care physician. Prior similar symptoms: Yes Recent Illness/Hospitalization: No PFSH [facility] Medical History Abscess of deep perineal space Anemia Anxiety Atherosclerotic heart disease of [place] coronary artery without angina pectoris Chest pain Chronic hypoxemic respiratory failure Chronic pain Chronic prescription benzodiazepine use Chronic steroid use Colon polyps COPD (chronic obstructive pulmonary disease) DVT (deep venous thrombosis) Essential hypertension Family history of premature CAD GERD (gastroesophageal reflux disease) Goiter History of Chanel's gangrene HLD (hyperlipidemia) Hypothyroidism IBS (irritable bowel syndrome) Intertrigo Kidney stones Left against medical advice Non-healing surgical wound NSTEMI, initial episode of care On home oxygen therapy BERT (obstructive sleep apnea) Pain in scapula Rheumatoid arthritis Sleep apnea Smoker Super obesity Superficial thrombophlebitis of leg Thrush Type 2 diabetes mellitus Ulcer of scrotum Home Medications diazepam 10 mg tablet (Valium) 10 mg PO 4X/DAY PRN Anxiety 03/03/16 [History Last Taken 08/15/22] albuterol sulfate 90 mcg/actuation aerosol inhaler (Ventolin HFA) 1 - 2 puff inhalation UD PRN Sob &/Or Wheezing 07/07/20 [History Last Taken 08/11/22] ascorbic acid (vitamin C) 500 mg capsule 500 mg PO DAILY SUPPLEMENT 07/07/20 [History Last Taken 08/16/22] gabapentin 100 mg capsule 100 mg PO QHS neuropathy 07/07/20 [History Last Taken 08/15/22] omeprazole 20 mg capsule,delayed release 20 mg PO BID ACID REFLUX 07/07/20 [History Last Taken 08/16/22] glipizide 2.5 mg tablet, extended release 24 hr 2.5 mg PO DAILY DIABETES 02/04/22 [History Last Taken Unknown] furosemide 20 mg tablet 40 mg PO DAILY FLUID 03/12/22 [History Last Taken 08/16/22] ammonium lactate 12 % topical cream 1 applic topical BID LEGS 08/16/22 [History Last Taken 08/15/22] aspirin 81 mg tablet,delayed release 81 mg PO DAILY HEART HEALTH 08/16/22 [History Last Taken 08/16/22] atorvastatin 40 mg tablet 40 mg PO QHS CHOLESTEROL 08/16/22 [History Last Taken 08/15/22] bumetanide 1 mg tablet 1 - 2 mg PO DAILY PRN FLUID 08/16/22 [History Last Taken Unknown] cholecalciferol (vitamin D3) 1,250 mcg (50,000 unit) capsule 1,250 mcg PO TH SUPPLEMENT 08/16/22 [History Last Taken Unknown] dabigatran etexilate 150 mg capsule (Pradaxa) 150 mg PO BID BLOOD THINNER 08/16/22 [History Last Taken 08/16/22] doxycycline hyclate 100 mg capsule 100 mg PO BID INFECTIONS 08/16/22 [History Last Taken 08/09/22] fluticasone propionate 50 mcg/actuation nasal spray,suspension 2 spray intranasal DAILY PRN Nasal Congestion 08/16/22 [History Last Taken Unknown] furosemide 20 mg tablet 20 mg PO LUNCH FLUID 08/16/22 [History Last Taken Unknown] levothyroxine 150 mcg tablet 300 mcg PO DAILY THYROID 08/16/22 [History Last Taken 08/16/22] losartan 25 mg tablet 25 mg PO BID BLOOD PRESSURE 08/16/22 [History Last Taken 08/16/22] metoprolol tartrate 25 mg tablet 50 mg PO BID BLOOD PRESSURE 08/16/22 [History Last Taken 08/16/22] miconazole nitrate 2 % topical cream 1 applic topical BID FUNGAL INFECTION 08/16/22 [History Last Taken 08/16/22] nicotine 21 mg/24 hr daily transdermal patch 1 patch transdermal DAILY NICOTINE WITHDRAWAL 08/16/22 [History Last Taken 08/15/22] nystatin 100,000 unit/gram topical powder (Nyamyc) 1 applic topical BID SKIN FOLDS 08/16/22 [History Last Taken 08/15/22] oxycodone 5 mg tablet 5 mg PO Q6H PRN Pain 08/16/22 [History Last Taken Unknown] prednisone 10 mg tablet 10 mg PO BID STEROID 08/16/22 [History Last Taken 08/16/22] ticagrelor 90 mg tablet (Brilinta) 90 mg PO BID BLOOD THINNER 08/16/22 [History Last Taken 08/16/22] clindamycin HCl 300 mg capsule (Cleocin HCl) 300 mg PO Q6H #40 CAPSULES 11/07/22 [Rx Last Taken Unknown] Allergy/AdvReac Type Severity Reaction Status Date / Time Penicillins Allergy Hives Verified 03/16/23 19:43 etanercept [From Enbrel] AdvReac Swelling Verified 03/16/23 19:43 rivaroxaban [From Xarelto] AdvReac Nausea Verified 03/16/23 19:43 warfarin sodium AdvReac Nausea Verified 03/16/23 19:43 [From Coumadin] Family History Other Cancer Heart disease Kidney disease Surgical History History of coronary artery stent placement (03/25/21) Social History household members: family Smoking Status: Heavy Smoker (>10/day) substance use type: does not use ROS ROS ED ROS Narrative Denies recent illness. Review of Systems ROS Unobtainable: Denies due to encephalopathy Constitutional Constitutional ED: Denies chills or fever(s) Eyes Eyes: Denies blurry vision ENT ENT ED: Denies ear pain Cardiovascular Cardiovascular: Denies chest pain Respiratory/Chest Respiratory/Chest: Denies cough Gastrointestinal Gastrointestinal: Denies abdominal pain Genitourinary Genitourinary ED: Denies dysuria or hematuria Musculoskeletal Musculoskeletal: Denies arthralgias Integumentary Reports abscess Neurologic Neurologic: Denies headache(s) Psychiatric Psychiatric: Denies anxiety or depression Endocrine Endocrinology: Denies cold intolerance Hematologic/Lymphatic Hematologic/Lymphatic: Reports none Allergic/Immunologic Allergic/Immunologic ED: Denies mouth swelling or tongue swelling EXAM Physical Exam Narrative Exam Narrative: 2-year-old male vital signs stable afebrile. He has COPD is chronically on oxygen. HEENT exam unremarkable. Neck nontender. Lungs clear to auscultation bilaterally. Heart regular rate and rhythm rate about 100. Chest wall nontender. Abdomen morbidly obese soft nontender. Moving all 4 extremities. 1+ pitting edema about lower extremities is chronic. His right scrotal area currently there is no abscess. There is significant redundant tissue. There is nothing to drain. There is no cellulitis. There is no Chanel's gangrene. He does have some edema of his external genitalia. But there is no infection. Back unremarkable. Left buttock by the crease of his hamstring in his buttocks there is about a dime sized abscess that is actively draining pus. It is already open. It is open about half an inch. There is no bleeding. There is no big pocket of pus. There is no surrounding cellulitis. Const Vital Signs: 03/16/23 19:41 Temperature 97.8 F Temperature Source Temporal Pulse Rate 115 H Respiratory Rate 16 Blood Pressure 147/88 H Blood Pressure Mean 107 Pulse Ox 96 Positive well nourished, well developed and obese; Negative for cachectic, contractures or unkempt General Appearance ED: well developed and NAD; Negative for unkempt, cachectic, contractures, cyanotic, diaphoretic or pallor Nutritional Appearance: obese; Negative for cachectic HEENT Reports moist mucous membranes Negative for trauma or tenderness Eyes PERRL and EOMs intact bilaterally General Eye ED: Negative for pale conjunctiva or scleral icterus Neck no lymphadenopathy, supple and no JVD General: Negative for tenderness Lymph Lymphatic: Negative for other Chest Wall inspection of chest normal and palpation of chest normal Chest: Negative for other Resp normal respiratory effort and clear to auscultation bilaterally Effort and Inspection: Negative for retractions Auscultation: Negative for rales, rhonchi or wheezes Cardio regular rate, regular rhythm, S1 normal heart sound, S2 normal heart sound and no murmurs GI normal to inspection, nondistended, normoactive bowel sounds, non-tender, non- distended and no masses Inspection: Negative for abdominal distention Auscultation: normoactive bowel sounds Palpation: soft; Negative for tender or guarding Back/Spine no CVA tenderness General Back: Negative for CVA tenderness Cervical Spine: Negative for cervical spine tenderness Thoracic Spine / Upper Back: Negative for thoracic spinal tenderness Lumbar Spine / Lower Back: Negative for lumbar spinal tenderness Extremity normal to inspection General Extremety ED: Negative for edema or tenderness General Extremity: Negative for edema Neuro oriented x3 and CN's II-XII intact bilaterally Sensorium / Orientation: alert; Negative for orientation impaired, lethargic or stuporous Motor Exam: strength 5/5 throughout Psych mental status grossly normal Appearance: Negative for unkempt Attitude: No agitated Mood & Affect: Negative for depressed, anxious or tearful Skin no rashes or lesions noted and No no wounds Skin Narrative: Small left buttock abscess. Openly draining. Small pus. No large pocket. No fluctuance. No cellulitis. Right groin no abscess seen. General Skin Exam: Negative for jaundice or pallor Lesions: No lesion noted Rashes: No rashes noted Trauma: Negative for abrasion Wounds: Negative for wounds noted MDM MDM MDM Narrative Medical decision making narrative: 52-year-old male has an abscess on his left buttock that is openly draining. It does not need to be opened up anymore. There is no large pocket of pus. There is cellulitis. I do not find any abscess at all in his right groin. He is already on Bactrim. He will do warm soaks. Return if worse. There is nothing to drain at this time. Discharge Plan Triage Chief Complaint: Abscess ED Provider: Rajendra Fam Dx/Rx/DC Orders Clinical Impression: History of COPD, Abscess of buttock, History of diabetes mellitus Instructions: ED Abscess Antibiotic Treatment Only Prescriptions: No Action glipizide 2.5 mg tablet extended release 24hr 2.5 mg PO DAILY furosemide 20 mg tablet 40 mg PO DAILY diazepam [Valium] 10 MG tablet 10 mg PO 4X/DAY PRN (Reason: Anxiety) omeprazole 20 MG capsule,delayed release(DR/EC) 20 mg PO BID gabapentin 100 MG capsule 100 mg PO QHS albuterol sulfate [Ventolin HFA] 1 INHALER inhaler 1 - 2 puff INHALATION UD PRN (Reason: Sob &/Or Wheezing) Rx Instructions: INHALE 1 TO 2 PUFFS BY MOUTH AND INTO THE LUNGS EVERY 4 TO 6 HOURS NEEDED ascorbic acid (vitamin C) 500 MG capsule 500 mg PO DAILY prednisone 10 mg Tablet 10 mg PO BID oxycodone 5 mg Tablet 5 mg PO Q6H PRN (Reason: Pain) Brilinta 90 mg Tablet 90 mg PO BID miconazole nitrate 2 % cream 1 applic TOPICAL BID Patient Comments: apply to affected area twice a day aspirin 81 mg tablet,delayed release (DR/EC) 81 mg PO DAILY levothyroxine 150 mcg tablet 300 mcg PO DAILY Patient Comments: take 2 tablets by mouth once daily nicotine 21 mg/24 hr patch 24 hour 1 patch transdermal DAILY bumetanide 1 mg tablet 1 - 2 mg PO DAILY PRN (Reason: FLUID) ammonium lactate 12 % cream 1 applic TOPICAL BID furosemide 20 mg tablet 20 mg PO LUNCH nystatin [Nyamyc] 100,000 unit/gram powder 1 applic TOPICAL BID Patient Comments: apply to affected area once daily to twice a day fluticasone propionate 50 mcg/actuation spray,suspension 2 spray INTRANASAL DAILY PRN (Reason: Nasal Congestion) Patient Comments: instill 2 sprays into each nostril once daily cholecalciferol (vitamin D3) 1,250 mcg (50,000 unit) capsule 1,250 mcg PO TH Patient Comments: take 1 capsule by mouth every week atorvastatin 40 mg tablet 40 mg PO QHS doxycycline hyclate 100 mg capsule 100 mg PO BID losartan 25 mg tablet 25 mg PO BID metoprolol tartrate 25 mg tablet 50 mg PO BID dabigatran etexilate [Pradaxa] 150 mg capsule 150 mg PO BID Rx Instructions: take 1 pill (150mg) in the morning then take 1 pill in the evening (150mg) for a total of 300mg. clindamycin HCl [Cleocin HCl] 300 mg capsule 300 mg PO Q6H Qty: 40 0RF Primary Care Provider: Ida Norris Referrals: Ida Norris DO [Primary Care Provider] - 1 Week if not improving Activity Restrictions/Additional Instructions: I do not see any abscess in your right groin. The abscess on the left buttocks warm soaks. Motrin and Tylenol for pain. Continue your Bactrim 1 pill twice a day for the next 10 days. Follow-up with your doctor if not improving. Return if the abscess on your buttock gets larger but at this time it is open and draining does not need to be drained. Disposition Disposition: Home, Self Care
[2023-03-16 20:43] VITALS: RESP 24; BMI 64.2
== END 2023-03-16 20:49 | disposition home or self-care (01) ==
PROVIDERS: Emergency Provider Emergency Medicine; PCP Family Medicine; Visit Provider Emergency Medicine
DX: L02.31 Cutaneous abscess of buttock (principal); J44.9 Chronic obstructive pulmonary disease, unspecified; E11.9 Type 2 diabetes mellitus without complications; I10 Essential (primary) hypertension; F17.200 Nicotine dependence, unspecified, uncomplicated; I25.10 Atherosclerotic heart disease of native coronary artery without angina pectoris; E66.9 Obesity, unspecified; L03.317 Cellulitis of buttock
CPT/HCPCS: 99282

== ENCOUNTER 2023-03-19 19:33 | Emergency (ER) | payer MEDICAID, SELFPAY ==
[2023-03-19 19:34] VITALS: BP 163/72; PULSE 123; RESP 24; TEMP 36.1; O2SAT 90
--- NOTE | 2023-03-19 21:33 | CT_ITS ---
INDICATION: abscess EXAMINATION: CT ABDOMEN AND PELVIS WITHOUT CONTRAST - CT Abdomen And Pelvis W/O Contrast Injection TECHNIQUE: Helically acquired images were obtained of the abdomen and pelvis without oral or IV contrast. A radiation dose optimization technique was used for this scan. IV Contrast dosage and agent: None. Oral contrast: None. COMPARISON: CT abdomen and pelvis June 27, [address] pelvis August 16, 2022. FINDINGS: LOWER CHEST: Reticulations and ground glasslike opacities likely representing atelectasis of the dependent lung bases. No cardiomegaly or pericardial effusion. LIVER: Homogeneous. No focal mass. GALLBLADDER AND BILIARY TREE: No calcified gallstones. No gallbladder distension or wall edema. No intra- or extrahepatic biliary ductal dilation. PANCREAS: No focal cystic or solid mass. Fatty pancreatic atrophy. SPLEEN: Normal size without focal cystic or solid mass. Numerous, small splenic calcifications consistent with prior granulomatous infection. ADRENAL GLANDS: No nodules. KIDNEYS, URETERS and BLADDER: Normal renal size and position. Convex contour superior pole left kidney with decreased density corresponding to cyst described on prior comparison CT abdomen and pelvis. No hydronephrosis. Bladder is unremarkable. PERITONEUM: No ascites or free air. No other fluid collection. Note that the far lateral abdominal cavity and abdominal muniz excluded in [id number] due to patient''s size. No intra-abdominal inflammatory changes. BOWEL: No evidence of acute appendicitis. No abnormally distended bowel loops or air fluid levels. No wall thickening or mass. No focal inflammatory changes. Note that a portion of the left colon is excluded from [id number] LYMPH NODES: No enlarged mesenteric or retroperitoneal lymph nodes. VESSELS: Aorta is non-dilated. REPRODUCTIVE ORGANS: Prostate gland is normal in appearance. ABDOMINAL WALL: No discrete abdominal or pelvic wall hernia. Small focal skin concavity right inguinal region. No underlying subcutaneous inflammatory changes or associated skin thickening. Right inguinal region is otherwise normal in appearance. No inguinal lymphadenopathy. There is large area of mild skin thickening and subcutaneous stranding density involving the patulous anterior abdomen with no focal inflammatory changes suggested Reticular nodular densities, incompletely visualized, between the base of the penis and the perianal subcutaneous fat. This may represent incompletely visualized inflammatory changes or possible scarring associated with prior infection in this area. No focal fluid collection or subcutaneous gas exemplified. The scrotum is excluded from the [id number]. BONES: No lytic or blastic abnormality. CT/Abdomen/Pelvis without Cont IMPRESSION: Incompletely visualized reticular/nodular densities between the base of the penis and perianal subcutaneous fat suggesting incompletely visualized inflammatory changes and/or possible scarring associated with prior infection in this area. No soft tissue gas or focal fluid collection. The scrotum is excluded from the [id number]. Tiny focal skin concavity right inguinal region with no associated skin thickening or subcutaneous inflammatory changes. Large area of mild skin thickening and subcutaneous edema without focal inflammatory changes involving the patulous abdomen below the umbilicus. Electronically Signed: Epi Vergara DO at 23:16 EDT ,
[2023-03-19] MEDS: diazePAM 5 MG Tablet PO (21:47)
[2023-03-19 21:49] LABS: Bacteria 0 SEEN /hpf (None Seen); Mucous, Urine 0 SEEN /hpf (<or=2+); Red Blood Cells-Urine 0 SEEN /hpf (0-5); Squamous Epithelial Cells - UA 0 SEEN /hpf (0-5); White Blood Cells 0 SEEN /hpf (0-5)
[2023-03-19 22:04] LABS: Absolute Lymphocyte Count 2.35 X10^3/uL (0.83-4.51); Absolute Neutrophil Count 12.1 X10^3/uL (2.0-7.7); Basophil# 0.05 X10^3/uL; Basophil% 0.3 % (0-1); Eosinophil# 0.18 X10^3/uL; Eosinophils% 1.2 % (0-5); Hematocrit 32.3 % (40-54); Hemoglobin 8.2 g/dL (13.0-16.5); Lymphocyte # 2.35 X10^3/ul (0.83-4.51); Lymphocyte % 15.1 % (19-41); Mean Corp Hgb Conc 25.4 g/dL (32-36); Mean Corpuscular Hgb 19.4 pg (27.0-32.0); Mean Corpuscular Volume 76.4 fL (80-94); Mean Platelet Vol. 8.8 fl (6.2-12.0); Monocyte# 0.72 X10^3/uL; Monocyte% 4.6 % (0-10); NRBC Flagged by Analyzer 0.2 % (0-5); Neutrophil # 12.14 X10^3/uL (2.7-7.7); Neutrophil % 78.2 % (47-70); POSITIVE MORPHOLOGY YES; Platelet Count 370 K/mm3 (150-450); RBC Distribution Width CV 20.2 % (11.6-14.6); RBC Distribution Width SD 54.6 fl (35.1-43.9); Red Blood Count 4.23 M/mm3 (4.6-6.2); White Blood Count 15.5 K/mm3 (4.4-11.0)
[2023-03-19 22:07] LABS: Differential Indicated SCAN CRITERIA MET
[2023-03-19 22:13] LABS: Color, Urine Yellow (Yellow); Glucose, Dipstick Normal (Normal); Ketone-Dipstick Negative (Negative); Leukocyte Esterase-Dipstick Negative /ul (Negative); Nitrite-Dipstick Negative (Negative); Occult Blood-Urine 10 /ul (Negative); Protein-Dipstick 30 mg/dl (Negative); Urine Bilirubin Dipstick Negative (Negative); Urine Clarity Clear (Clear); Urine Urobilinogen 1 mg/dl (Normal)
[2023-03-19 22:19] LABS: Anion Gap 2 (5-15); BUN 13 mg/dL (7-18); BUN/Creat Ratio 10.9 RATIO (10-20); Calcium,Total 8.7 mg/dL (8.5-10.1); Chloride 103 mmol/L (98-107); Creatinine, Serum 1.19 mg/dL (0.70-1.30); EST Glomerular Filtration Rate 68 mL/min (>60); Est Glom Filt Rate - Afr Amer 82 mL/min (>60); Glucose 102 mg/dL (74-106); Potassium 3.8 mmol/L (3.5-5.1); Sodium Level 138 mmol/L (136-145)
[2023-03-19 22:30] LABS: Anisocytosis 1+; Platelet Estimate ADEQUATE (ADEQ); Polychromasia RARE; Red Cell Morphology N CHROM NORMAL (NORM C&C)
[2023-03-19 22:31] LABS: Hypochromasia 1+; Microcytosis 1+; Ovalocyte RARE; Target Cells RARE
--- NOTE | 2023-03-19 23:50 | EDS_ITS ---
HPI History of Present Illness Chief Complaint: Edema Informant: patient Narrative Narrative: Patient presents secondary to scrotal swelling. Patient was seen in the emergency room a few days ago with concern for possible abscess in the right groin. He has a draining abscess on his buttock and he is already on Bactrim. He was not noted to have any significant findings in the right groin and was discharged home. Patient states he continues to have scrotal swelling and his visiting nurse was concerned he may need IV antibiotics or something for yeast infection. [facility] Medical History Abscess of deep perineal space Anemia Anxiety Atherosclerotic heart disease of [place] coronary artery without angina pectoris Chest pain Chronic hypoxemic respiratory failure Chronic pain Chronic prescription benzodiazepine use Chronic steroid use Colon polyps COPD (chronic obstructive pulmonary disease) DVT (deep venous thrombosis) Essential hypertension Family history of premature CAD GERD (gastroesophageal reflux disease) Goiter History of Chanel's gangrene HLD (hyperlipidemia) Hypothyroidism IBS (irritable bowel syndrome) Intertrigo Kidney stones Left against medical advice Non-healing surgical wound NSTEMI, initial episode of care On home oxygen therapy BERT (obstructive sleep apnea) Pain in scapula Rheumatoid arthritis Sleep apnea Smoker Super obesity Superficial thrombophlebitis of leg Thrush Type 2 diabetes mellitus Ulcer of scrotum Home Medications diazepam 10 mg tablet (Valium) 10 mg PO 4X/DAY PRN Anxiety 03/03/16 [History Last Taken 08/15/22] albuterol sulfate 90 mcg/actuation aerosol inhaler (Ventolin HFA) 1 - 2 puff inhalation UD PRN Sob &/Or Wheezing 07/07/20 [History Last Taken 08/11/22] ascorbic acid (vitamin C) 500 mg capsule 500 mg PO DAILY SUPPLEMENT 07/07/20 [History Last Taken 08/16/22] gabapentin 100 mg capsule 100 mg PO QHS neuropathy 07/07/20 [History Last Taken 08/15/22] omeprazole 20 mg capsule,delayed release 20 mg PO BID ACID REFLUX 07/07/20 [History Last Taken 08/16/22] glipizide 2.5 mg tablet, extended release 24 hr 2.5 mg PO DAILY DIABETES 09/06/21 [History Last Taken Unknown] furosemide 20 mg tablet 40 mg PO DAILY FLUID 03/12/22 [History Last Taken 08/16/22] ammonium lactate 12 % topical cream 1 applic topical BID LEGS 08/16/22 [History Last Taken 08/15/22] aspirin 81 mg tablet,delayed release 81 mg PO DAILY HEART HEALTH 08/16/22 [History Last Taken 08/16/22] atorvastatin 40 mg tablet 40 mg PO QHS CHOLESTEROL 08/16/22 [History Last Taken 08/15/22] bumetanide 1 mg tablet 1 - 2 mg PO DAILY PRN FLUID 08/16/22 [History Last Taken Unknown] cholecalciferol (vitamin D3) 1,250 mcg (50,000 unit) capsule 1,250 mcg PO TH SUPPLEMENT 08/16/22 [History Last Taken Unknown] dabigatran etexilate 150 mg capsule (Pradaxa) 150 mg PO BID BLOOD THINNER 08/16/22 [History Last Taken 08/16/22] doxycycline hyclate 100 mg capsule 100 mg PO BID INFECTIONS 08/16/22 [History Last Taken 08/09/22] fluticasone propionate 50 mcg/actuation nasal spray,suspension 2 spray intranasal DAILY PRN Nasal Congestion 08/16/22 [History Last Taken Unknown] furosemide 20 mg tablet 20 mg PO LUNCH FLUID 08/16/22 [History Last Taken Unknown] levothyroxine 150 mcg tablet 300 mcg PO DAILY THYROID 08/16/22 [History Last Taken 08/16/22] losartan 25 mg tablet 25 mg PO BID BLOOD PRESSURE 08/16/22 [History Last Taken 08/16/22] metoprolol tartrate 25 mg tablet 50 mg PO BID BLOOD PRESSURE 08/16/22 [History Last Taken 08/16/22] miconazole nitrate 2 % topical cream 1 applic topical BID FUNGAL INFECTION 08/16/22 [History Last Taken 08/16/22] nicotine 21 mg/24 hr daily transdermal patch 1 patch transdermal DAILY NICOTINE WITHDRAWAL 08/16/22 [History Last Taken 08/15/22] nystatin 100,000 unit/gram topical powder (Nyamyc) 1 applic topical BID SKIN FOLDS 08/16/22 [History Last Taken 08/15/22] oxycodone 5 mg tablet 5 mg PO Q6H PRN Pain 08/16/22 [History Last Taken Unknown] prednisone 10 mg tablet 10 mg PO BID STEROID 08/16/22 [History Last Taken 08/16/22] ticagrelor 90 mg tablet (Brilinta) 90 mg PO BID BLOOD THINNER 08/16/22 [History Last Taken 08/16/22] clindamycin HCl 300 mg capsule (Cleocin HCl) 300 mg PO Q6H #40 CAPSULES 11/07/22 [Rx Last Taken Unknown] Allergy/AdvReac Type Severity Reaction Status Date / Time Penicillins Allergy Hives Verified 03/19/23 19:34 etanercept [From Enbrel] AdvReac Swelling Verified 03/19/23 19:34 rivaroxaban [From Xarelto] AdvReac Nausea Verified 03/19/23 19:34 warfarin sodium AdvReac Nausea Verified 03/19/23 19:34 [From Coumadin] Family History Other Cancer Heart disease Kidney disease Surgical History History of coronary artery stent placement (03/25/21) Social History household members: family Smoking Status: Heavy Smoker (>10/day) substance use type: does not use ROS ROS ED Constitutional Constitutional ED: Denies chills or fever(s) Eyes Eyes: Denies change in vision ENT ENT ED: Denies rhinorrhea or sore throat Cardiovascular Cardiovascular: Denies chest pain or palpitations Respiratory/Chest Respiratory/Chest: Denies cough or dyspnea Gastrointestinal Gastrointestinal: Denies abdominal pain, nausea or vomiting Genitourinary Genitourinary ED: Denies dysuria Musculoskeletal Musculoskeletal: Denies back pain or extremity pain Integumentary Reports rash; Denies Abrasions Neurologic Neurologic: Denies headache(s) or weakness Psychiatric Psychiatric: Denies anxiety or depression Endocrine Endocrinology: Denies polydipsia or polyuria Allergic/Immunologic Allergic/Immunologic ED: Denies lip swelling or urticaria EXAM Physical Exam Const Vital Signs: 03/19/23 19:34 03/19/23 20:54 03/20/23 00:04 Temperature 97 F L Temperature Source Temporal Pulse Rate 123 H 100 Respiratory Rate 24 H 19 H Respiratory Effort Short of Breath Blood Pressure 163/72 H 158/91 H Blood Pressure Mean 102 Pulse Ox 90 95 Oxygen Delivery Method Nasal Cannula Oxygen Flow Rate (L/min) 4 Positive obese Nutritional Appearance: obese HEENT Reports moist mucous membranes Eyes EOMs intact bilaterally Chest Wall inspection of chest normal and palpation of chest normal Resp normal respiratory effort and clear to auscultation bilaterally Cardio regular rate and regular rhythm GI GI Narrative: Abdomen is soft and obese. Patient does have evidence of yeast skin infection in his abdominal folds. No open wounds or evidence of abscess. Narrative: Generalized scrotal edema noted. No focal tenderness. No abscess appreciated. Extremity Extremity Narrative: Chronic venous skin changes to the lower extremities. Neuro oriented x3 Sensorium / Orientation: alert Psych Mood & Affect: anxious MDM MDM MDM Narrative Medical decision making narrative: Labwork obtained to evaluate for leukocytosis, anemia, and electrolyte derangement. Urinalysis obtained to evaluate for infection/hematuria. CT flank obtained to evaluate for any evidence of deep abscess. Lab Data Attestation: I reviewed the patient's lab results. Labs: Laboratory Results - last 24 hr 03/19/23 03/19/23 21:40 21:42 WBC 15.5 H RBC 4.23 L Hgb 8.2 L Hct 32.3 L MCV 76.4 L MCH 19.4 L MCHC 25.4 L RDW Std Deviation 54.6 H RDW Coeff of Kris 20.2 H Plt Count 370 MPV 8.8 Immature Gran % (Auto) 0.600 Neut % (Auto) 78.2 H Lymph % (Auto) 15.1 L [place] % (Auto) 4.6 Eos % (Auto) 1.2 Baso % (Auto) 0.3 Absolute Neuts (auto) 12.1 H Absolute Lymphs (auto) 2.35 Nucleated RBC % 0.2 Platelet Estimate ADEQUATE RBC Morphology N CHROM Polychromasia RARE Hypochromasia 1+ Anisocytosis 1+ Microcytosis 1+ Target Cells RARE Ovalocytes RARE Sodium 138 Potassium 3.8 Chloride 103 Carbon Dioxide 33.0 H Anion Gap 2 L BUN 13 Creatinine 1.19 Est GFR (MDRD) Af Amer 82 Est GFR (MDRD) Non-Af 68 BUN/Creatinine Ratio 10.9 Glucose 102 Calcium 8.7 Urine Color Yellow Urine Clarity Clear Urine pH 7.0 Ur Specific Gordon 1.010 Urine Protein 30 H Urine Glucose (UA) Normal Urine Ketones Negative Urine Occult Blood 10 H Urine Nitrite Negative Urine Bilirubin Negative Urine Urobilinogen 1 H Ur Leukocyte Esterase Negative Urine RBC 0 SEEN Urine WBC 0 SEEN Ur Squamous Epith Cells 0 SEEN Urine Bacteria 0 SEEN Urine Mucus 0 SEEN Radiography Diagnostic Testing: Radiology Impression Abdomen/Pelvis CT 03/19/23 21:33 IMPRESSION: Incompletely visualized reticular/nodular densities between the base of the penis and perianal subcutaneous fat suggesting incompletely visualized inflammatory changes and/or possible scarring associated with prior infection in this area. No soft tissue gas or focal fluid collection. The scrotum is excluded from the [id number]. Tiny focal skin concavity right inguinal region with no associated skin thickening or subcutaneous inflammatory changes. Large area of mild skin thickening and subcutaneous edema without focal inflammatory changes involving the patulous abdomen below the umbilicus. Electronically Signed: Epi Ursula, at 23:16 EDT , Treatment and Re-Evaluation :: CBC is a white count of 15.5. It does appear patient has had elevated white counts on multiple lab draws. Hemoglobin is 8.2 and hematocrit is 32.3. It appears his hemoglobin has been slowly dropping over the past year but he was in the 8 range in November of this year. Chemistry studies are unremarkable. Glucose is 102. Urinalysis reveals no evidence of infection. CT scan of the abdomen pelvis reveals some densities between the base of the penis and the seminal subcutaneous fat. Patient does have a history of Chanel's gangrene with surgical repair and I believe this is all scar tissue from that previous infection. Otherwise there is a large area of skin wall thickening over the a nterior abdomen. No evidence of focal abscess. Patient will continue his current antibiotic. We discussed using supportive underwear to limit his scrotal edema. He reports having nystatin cream/powder that he puts on his abdomen approximate twice a day. I encouraged him to increase this to 4 times a day. Return instructions given. Discharge Plan Triage Chief Complaint: Edema ED Provider: Jerrica Gorman Dx/Rx/DC Orders Clinical Impression: Yeast infection of the skin, Scrotal edema Instructions: ED Kaitlin Skin Infection (Adult) Prescriptions: No Action glipizide 2.5 mg tablet extended release 24hr 2.5 mg PO DAILY furosemide 20 mg tablet 40 mg PO DAILY diazepam [Valium] 10 MG tablet 10 mg PO 4X/DAY PRN (Reason: Anxiety) omeprazole 20 MG capsule,delayed release(DR/EC) 20 mg PO BID gabapentin 100 MG capsule 100 mg PO QHS albuterol sulfate [Ventolin HFA] 1 INHALER inhaler 1 - 2 puff INHALATION UD PRN (Reason: Sob &/Or Wheezing) Rx Instructions: INHALE 1 TO 2 PUFFS BY MOUTH AND INTO THE LUNGS EVERY 4 TO 6 HOURS NEEDED ascorbic acid (vitamin C) 500 MG capsule 500 mg PO DAILY prednisone 10 mg Tablet 10 mg PO BID oxycodone 5 mg Tablet 5 mg PO Q6H PRN (Reason: Pain) Brilinta 90 mg Tablet 90 mg PO BID miconazole nitrate 2 % cream 1 applic TOPICAL BID Patient Comments: apply to affected area twice a day aspirin 81 mg tablet,delayed release (DR/EC) 81 mg PO DAILY levothyroxine 150 mcg tablet 300 mcg PO DAILY Patient Comments: take 2 tablets by mouth once daily nicotine 21 mg/24 hr patch 24 hour 1 patch transdermal DAILY bumetanide 1 mg tablet 1 - 2 mg PO DAILY PRN (Reason: FLUID) ammonium lactate 12 % cream 1 applic TOPICAL BID furosemide 20 mg tablet 20 mg PO LUNCH nystatin [Nyamyc] 100,000 unit/gram powder 1 applic TOPICAL BID Patient Comments: apply to affected area once daily to twice a day fluticasone propionate 50 mcg/actuation spray,suspension 2 spray INTRANASAL DAILY PRN (Reason: Nasal Congestion) Patient Comments: instill 2 sprays into each nostril once daily cholecalciferol (vitamin D3) 1,250 mcg (50,000 unit) capsule 1,250 mcg PO TH Patient Comments: take 1 capsule by mouth every week atorvastatin 40 mg tablet 40 mg PO QHS doxycycline hyclate 100 mg capsule 100 mg PO BID losartan 25 mg tablet 25 mg PO BID metoprolol tartrate 25 mg tablet 50 mg PO BID dabigatran etexilate [Pradaxa] 150 mg capsule 150 mg PO BID Rx Instructions: take 1 pill (150mg) in the morning then take 1 pill in the evening (150mg) for a total of 300mg. clindamycin HCl [Cleocin HCl] 300 mg capsule 300 mg PO Q6H Qty: 40 0RF Primary Care Provider: Ida Norris Referrals: Ida Norris DO [Primary Care Provider] - 1-2 Weeks Activity Restrictions/Additional Instructions: As discussed, please wear supportive underwear. This will help your scrotal edema less than. Please use the nystatin cream or powder in your abdominal folds 3 or 4 times a day to help with the yeast infection. Disposition Disposition: Home, Self Care Discharge Date/Time: 03/20/23 00:05
[2023-03-20 00:04] VITALS: BP 158/91; PULSE 100; RESP 19; O2SAT 95
== END 2023-03-20 00:05 | disposition home or self-care (01) ==
PROVIDERS: Emergency Provider Emergency Medicine; PCP Family Medicine; Visit Provider Emergency Medicine
DX: B37.2 Candidiasis of skin and nail (principal); J44.9 Chronic obstructive pulmonary disease, unspecified; I25.10 Atherosclerotic heart disease of native coronary artery without angina pectoris; I10 Essential (primary) hypertension; R60.9 Edema, unspecified; F17.200 Nicotine dependence, unspecified, uncomplicated; N50.89 Other specified disorders of the male genital organs; E78.5 Hyperlipidemia, unspecified
CPT/HCPCS: 74176; 80048; 81001; 85025; 99283; A4216

== ENCOUNTER 2023-03-26 11:09 | Inpatient (IN) | payer MEDICAID, SELFPAY ==
[2023-03-26] VITALS (9 sets, daily range): BP systolic 129–141; BP diastolic 58–73; PULSE 71–102; RESP 16–26; TEMP 35.9–36.6; O2SAT 92–98; BMI 63.2; BMI 62.5
[2023-03-26 12:36] LABS: Absolute Lymphocyte Count 1.17 X10^3/uL (0.83-4.51); Absolute Neutrophil Count 11.8 X10^3/uL (2.0-7.7); Basophil# 0.04 X10^3/uL; Basophil% 0.3 % (0-1); Eosinophils% 0.7 % (0-5); Hemoglobin 7.8 g/dL (13.0-16.5); Lymphocyte # 1.17 X10^3/ul (0.83-4.51); Lymphocyte % 8.6 % (19-41); Mean Corp Hgb Conc 25.2 g/dL (32-36); Mean Corpuscular Volume 75.4 fL (80-94); Mean Platelet Vol. 8.9 fl (6.2-12.0); Monocyte# 0.54 X10^3/uL; Monocyte% 3.9 % (0-10); NRBC Flagged by Analyzer 0.1 % (0-5); Neutrophil # 11.76 X10^3/uL (2.7-7.7); POSITIVE MORPHOLOGY YES; Platelet Count 340 K/mm3 (150-450); RBC Distribution Width CV 20.2 % (11.6-14.6); RBC Distribution Width SD 54.9 fl (35.1-43.9); Red Blood Count 4.11 M/mm3 (4.6-6.2); White Blood Count 13.7 K/mm3 (4.4-11.0)
[2023-03-26 12:40] LABS: Differential Indicated SCAN CRITERIA MET
[2023-03-26 12:48] LABS: Anion Gap 4 (5-15); BUN 11 mg/dL (7-18); BUN/Creat Ratio 9.9 RATIO (10-20); Calcium,Total 8.6 mg/dL (8.5-10.1); Chloride 104 mmol/L (98-107); Creatinine, Serum 1.11 mg/dL (0.70-1.30); EST Glomerular Filtration Rate 74 mL/min (>60); Est Glom Filt Rate - Afr Amer 89 mL/min (>60); Estimated Creatinine Clearance 86.98 ml/min; Glucose 97 mg/dL (74-106); Potassium 4.5 mmol/L (3.5-5.1); Sodium Level 138 mmol/L (136-145)
--- NOTE | 2023-03-26 13:00 | RAD_ITS ---
INDICATION: dyspnea, edema EXAMINATION/TECHNIQUE: X-RAY - XR Chest 2 Views COMPARISON: November 20, 2022 FINDINGS: LINES/DEVICES: None. LUNGS: Bilateral opacities in the lungs, right more than left. Right upper lobe calcified granuloma. No pneumothorax. MEDIASTINUM AND CARDIOVASCULAR STRUCTURES: Cardiac silhouette is enlarged cardiovascular prominence. Central airways and mediastinal contour are unremarkable. BONES AND SOFT TISSUES: Unremarkable. RAD/Chest PA and Lateral IMPRESSION: Cardiomegaly with central pulmonary vascular prominence. Bilateral opacities in the lungs, right more than left. Pulmonary edema cannot be excluded. Electronically Signed: Shamir Dean DO at 13:40 EDT ,
[2023-03-26 13:10] LABS: BNP,B-Type NATRIURETIC PEPTIDE 30.5 pg/mL (0-100)
[2023-03-26 13:12] LABS: Anisocytosis 1+
--- NOTE | 2023-03-26 13:18 | EDS_ITS ---
HPI History of Present Illness Chief Complaint: Male Pain/Injury Informant: patient Narrative Narrative: Patient is a 52-year-old male with history of peripheral edema, abscess to his buttocks, hypertension, COPD on 4 L of oxygen dependence presenting with [facility] scrotal discomfort and swelling. Patient is concerned he has an abscess that is draining from his groin because he had increased pain there. He thinks that a couple days ago there was some serosanguineous drainage but he states it did not look like pus. He cannot really see the area however because of his body habitus. He notes that he has had increased swelling of his scrotum and is having a hard time urinating now because of the degree of swelling. He also states over this past week he had stopped taking his Lasix because it was too hard for him to get up and down with his scrotal pain to keep using the restroom. He has chronic shortness of breath and does not think it is particularly worse. He has a chronic cough with no change. Denies any chest pain. Normally does have wrapping for his legs but does not have it on currently. Denies any dysuria. [facility] Medical History (Updated 03/26/23 @ 17:[address] Shakila Levine, DO) Abscess of deep perineal space Anemia Anxiety Atherosclerotic heart disease of [place] coronary artery without angina pectoris Chest pain Chronic hypoxemic respiratory failure Chronic pain Chronic prescription benzodiazepine use Chronic steroid use Colon polyps COPD (chronic obstructive pulmonary disease) Depression DVT (deep venous thrombosis) Essential hypertension Family history of premature CAD GERD (gastroesophageal reflux disease) Goiter History of Chanel's gangrene HLD (hyperlipidemia) Hypothyroidism IBS (irritable bowel syndrome) Intertrigo Kidney stones Left against medical advice Non-healing surgical wound NSTEMI, initial episode of care On home oxygen therapy BERT (obstructive sleep apnea) Pain in scapula PTSD (post-traumatic stress disorder) Rheumatoid arthritis Sleep apnea Smoker Super obesity Superficial thrombophlebitis of leg Thrush Type 2 diabetes mellitus Ulcer of scrotum Home Medications diazepam 10 mg tablet (Valium) 10 mg PO 4X/DAY PRN Anxiety 03/03/16 [History Last Taken 08/15/22] albuterol sulfate 90 mcg/actuation aerosol inhaler (Ventolin HFA) 1 - 2 puff inhalation UD PRN Sob &/Or Wheezing 07/07/20 [History Last Taken 08/11/22] ascorbic acid (vitamin C) 500 mg capsule 500 mg PO DAILY SUPPLEMENT 07/07/20 [History Last Taken 08/16/22] gabapentin 100 mg capsule 100 mg PO QHS neuropathy 07/07/20 [History Last Taken 08/15/22] omeprazole 20 mg capsule,delayed release 20 mg PO BID ACID REFLUX 07/07/20 [History Last Taken 08/16/22] glipizide 2.5 mg tablet, extended release 24 hr 2.5 mg PO DAILY DIABETES 09/06/21 [History Last Taken Unknown] furosemide 20 mg tablet 40 mg PO DAILY FLUID 03/12/22 [History Last Taken 08/16/22] ammonium lactate 12 % topical cream 1 applic topical BID LEGS 08/16/22 [History Last Taken 08/15/22] aspirin 81 mg tablet,delayed release 81 mg PO DAILY HEART HEALTH 08/16/22 [History Last Taken 08/16/22] atorvastatin 40 mg tablet 40 mg PO QHS CHOLESTEROL 08/16/22 [History Last Taken 08/15/22] bumetanide 1 mg tablet 1 - 2 mg PO DAILY PRN FLUID 08/16/22 [History Last Taken Unknown] cholecalciferol (vitamin D3) 1,250 mcg (50,000 unit) capsule 1,250 mcg PO TH SUPPLEMENT 08/16/22 [History Last Taken Unknown] dabigatran etexilate 150 mg capsule (Pradaxa) 150 mg PO BID BLOOD THINNER 08/16/22 [History Last Taken 08/16/22] doxycycline hyclate 100 mg capsule 100 mg PO BID INFECTIONS 08/16/22 [History Last Taken 08/09/22] fluticasone propionate 50 mcg/actuation nasal spray,suspension 2 spray intranasal DAILY PRN Nasal Congestion 08/16/22 [History Last Taken Unknown] furosemide 20 mg tablet 20 mg PO LUNCH FLUID 08/16/22 [History Last Taken Unknown] levothyroxine 150 mcg tablet 300 mcg PO DAILY THYROID 08/16/22 [History Last Taken 08/16/22] losartan 25 mg tablet 25 mg PO BID BLOOD PRESSURE 08/16/22 [History Last Taken 08/16/22] metoprolol tartrate 25 mg tablet 50 mg PO BID BLOOD PRESSURE 08/16/22 [History Last Taken 08/16/22] miconazole nitrate 2 % topical cream 1 applic topical BID FUNGAL INFECTION 08/16/22 [History Last Taken 08/16/22] nicotine 21 mg/24 hr daily transdermal patch 1 patch transdermal DAILY NICOTINE WITHDRAWAL 08/16/22 [History Last Taken 08/15/22] nystatin 100,000 unit/gram topical powder (Nyamyc) 1 applic topical BID SKIN FOLDS 08/16/22 [History Last Taken 08/15/22] oxycodone 5 mg tablet 5 mg PO Q6H PRN Pain 08/16/22 [History Last Taken Unknown] prednisone 10 mg tablet 10 mg PO BID STEROID 08/16/22 [History Last Taken 08/16/22] ticagrelor 90 mg tablet (Brilinta) 90 mg PO BID BLOOD THINNER 08/16/22 [History Last Taken 08/16/22] clindamycin HCl 300 mg capsule (Cleocin HCl) 300 mg PO Q6H #40 CAPSULES 11/07/22 [Rx Last Taken Unknown] Allergy/AdvReac Type Severity Reaction Status Date / Time Penicillins Allergy Hives Verified 03/26/23 11:11 etanercept [From Enbrel] AdvReac Swelling Verified 03/26/23 11:11 rivaroxaban [From Xarelto] AdvReac Nausea Verified 03/26/23 11:11 warfarin sodium AdvReac Nausea Verified 03/26/23 11:11 [From Coumadin] Family History Other Cancer Heart disease Kidney disease Surgical History History of coronary artery stent placement (03/25/21) Social History household members: family Smoking Status: Heavy Smoker (>10/day) substance use type: does not use ROS ROS ED Constitutional Constitutional ED: Denies chills or fever(s) Cardiovascular Cardiovascular: Denies chest pain or palpitations Respiratory/Chest Respiratory/Chest: Reports cough, dyspnea and dyspnea on exertion Gastrointestinal Gastrointestinal: Denies abdominal pain, nausea or vomiting Genitourinary Genitourinary ED: Reports other Details: scrotal swelling ; Denies dysuria or urinary frequency Musculoskeletal Musculoskeletal: Denies arthralgias or myalgias Integumentary Reports abscess Neurologic Neurologic: Denies headache(s) or weakness Psychiatric Psychiatric: Denies anxiety Hematologic/Lymphatic Hematologic/Lymphatic: Denies easy bleeding or easy bruising EXAM Physical Exam Const Vital Signs: 03/26/23 11:10 03/26/23 11:19 03/26/23 13:43 Temperature 97.8 F Temperature Source Temporal Pulse Rate 87 72 Respiratory Rate 26 H 20 H Blood Pressure 132/69 H 140/61 H Blood Pressure Mean 90 87 Pulse Ox 96 92 Oxygen Delivery Method Nasal Cannula Nasal Cannula Oxygen Flow Rate (L/min) 4 4 03/26/23 14:47 Temperature 98 F Temperature Source Temporal Pulse Rate 71 Respiratory Rate 19 H Blood Pressure 141/73 H Blood Pressure Mean 95 Pulse Ox 94 Oxygen Delivery Method Nasal Cannula Oxygen Flow Rate (L/min) 4 Positive well nourished, well developed and obese General Appearance ED: well developed Nutritional Appearance: obese HEENT Reports moist mucous membranes normocephalic and atraumatic Eyes PERRL Neck no JVD Resp clear to auscultation bilaterally Resp Narrative: Conversational dyspnea present after 4-5 words, significant dyspnea just trying to readjust himself in bed Cardio regular rate, regular rhythm and no murmurs GI non-tender and non-distended Palpation: soft; Negative for tender or guarding no CVA tenderness Narrative: Significant enlargement and edema of the scrotum. No significant erythema or abscess appreciated. Patient's scrotum is approximately the size of a cantaloupe. Not able to visualize the penis secondary to scrotal swelling. Groin / Perineum Exam: edema Extremity Extremity Narrative: Pitting edema up to the hips bilaterally. No deformity. Range of motion preserved of the knee. No significant effusion of the knee. Neuro oriented x3, moves all extremities and no focal motor deficits Psych mental status grossly normal Skin Skin Narrative: Chronic appearing erythema of the bilateral lower legs. No acute cellulitis or abscess appreciated in the perineal region. No draining wound appreciated. MDM MDM MDM Narrative Medical decision making narrative: Patient is evaluated for increased testicular/scrotal swelling. He does not have any signs of abscess, scrotal cellulitis or 4 days gangrene. In addition he had a negative CT of his pelvis looking for these things a couple days ago. He has had no significant progression of his symptoms but continues to have significant edema. His white blood cell count is mildly downtrending is now 13.5. He is anemic with a hemoglobin of 7.8. His hemoglobin has been slightly downtrending but it was 8.2 on the 17th of this month so its not significantly changed and I do not think that explains his entire presentation. His BNP is normal at 30.5. 2 view chest x-ray interpreted by myself as well as radiology is consistent with cardiomegaly and pulmonary vascular congestion however there is poor penetration likely secondary to patient's body habitus. Given the patient's significant dyspnea on exertion, significant peripheral edema with quite significant scrotal edema and general debility I do think he would benefit from admission for IV diuresis. He is agreeable with this. The patient is not aware of any history of heart failure and his most recent echocardiogram was from 2020 which showed a normal EF of 65%. Case is discussed admitting physician, Dr. Bruce. He is given IV Lasix 40 mg in the ER. Patient also states that he twisted his knee a couple days ago and leave in the ER. I do not think he requires an x-ray as he does not have any direct trauma and has intact range of motion. Difficult to evaluate for effusion given to his significant peripheral edema. Is given an [place] wrap and [place] for pain in the emergency room. Lab Data Attestation: I reviewed the patient's lab results. Labs: Laboratory Results - last 24 hr 03/26/23 12:25 WBC 13.7 H RBC 4.11 L Hgb 7.8 L Hct 31.0 L MCV 75.4 L MCH 19.0 L MCHC 25.2 L RDW Std Deviation 54.9 H RDW Coeff of Kris 20.2 H Plt Count 340 MPV 8.9 Immature Gran % (Auto) 0.500 Neut % (Auto) 86.0 H Lymph % (Auto) 8.6 L [place] % (Auto) 3.9 Eos % (Auto) 0.7 Baso % (Auto) 0.3 Absolute Neuts (auto) 11.8 H Absolute Lymphs (auto) 1.17 Nucleated RBC % 0.1 Anisocytosis 1+ Sodium 138 Potassium 4.5 Chloride 104 Carbon Dioxide 30.0 Anion Gap 4 L BUN 11 Creatinine 1.11 Estim Creat Clear Calc 86.98 Est GFR (MDRD) Af Amer 89 Est GFR (MDRD) Non-Af 74 BUN/Creatinine Ratio 9.9 L Glucose 97 Calcium 8.6 B-Natriuretic Peptide 30.5 Radiography Diagnostic Testing: Clinical Impression(s) from Imaging Studies Chest X-Ray 03/26/23 13:00 IMPRESSION: Cardiomegaly with central pulmonary vascular prominence. Bilateral opacities in the lungs, right more than left. Pulmonary edema cannot be excluded. Electronically Signed: Shamir Dean DO at 13:40 EDT Reading Location ID and State: [facility] / [place] Tel [phone], Service support , Rhythm Strip Rhythm Strip: Sinus Rhythm Rate: 78 Ectopy: None EKG Initial EKG: Attestation: I personally reviewed and interpreted this EKG as follows: Interpretation: Sinus Rhythm Comments: Sinus rhythm rate of 78 bpm Left axis deviation Right bundle branch block Normal ST segments Compared to prior EKG on 11/21/2022 patient no longer has a left anterior fascicular block but no other acute changes Prior EKG tracings: available for review Management Discussion w/another healthcare provider: Hospitalist Discharge Plan Dx/Rx/DC Orders Clinical Impression: Anemia, Edema, Scrotal edema Disposition Disposition: Acute Care Hospital [facility] Discharge Date/Time: 03/26/23 15:19
[2023-03-26] MEDS: Furosemide 40 MG/4 ML Vial IV (14:31)
[2023-03-26] MEDS: HYDROcodone Bitartrate/Apap 5/325 Tablet PO (14:31)
--- NOTE | 2023-03-26 15:23 | ECHOCS_ITS ---
Reason For Study: CAD/ASHD Procedure This was a 2D Doppler, Color Flow transthoracic echocardiogram. The study was technically difficult. Due to body habitus (480 lb). Contrast injection was performed. Exam performed portable in patient room. Left Ventricle Normal size and thickness. The left ventricular ejection fraction is 65 %. Normal diastology for age. Right Ventricle Normal right ventricle. Atria The left atrium is moderately enlarged. The right atrium is mildly enlarged. Mitral Valve Mitral valve not well visualized. Tricuspid Valve The tricuspid valve is not well visualized. Aortic Valve Trisinus/trileaflet aortic valve. Pulmonic Valve The pulmonic valve is not well visualized. Great Vessels Normal sized aortic root. Pericardium/Pleural No pericardial effusion. MMode/2D Measurements & Calculations LVIDd: 4.9 cm IVSd: 1.3 cm Ao root diam: 3.1 cm LVIDs: 3.2 cm LVPWd: 1.3 cm FS: 33.8 % LAV(MOD-bp): 78.8 ml LVAd ap4: 34.2 cm2 LVAd ap2: 24.3 cm2 LAV(MOD-bp) Indexed: 25.2 ml/m2 LVLd ap4: 8.7 cm LVLd ap2: 8.2 cm LAV(MOD-sp2): 74.7 ml EDV(MOD-sp4): 110.1 ml EDV(MOD-sp2): 60.1 ml LAV(MOD-sp4): 73.2 ml EDV(sp4-el): 114.6 ml EDV(sp2-el): 61.3 ml LVAs ap4: 17.9 cm2 LVAs ap2: 13.2 cm2 LVLs ap4: 7.9 cm LVLs ap2: 7.4 cm ESV(MOD-sp4): 34.9 ml ESV(MOD-sp2): 20.0 ml ESV(sp4-el): 34.5 ml ESV(sp2-el): 20.0 ml EF(MOD-sp4): 68.3 % EF(MOD-sp2): 66.6 % EF(sp4-el): 69.9 % SV(MOD-sp4): 75.2 ml SV(MOD-sp2): 40.0 ml SV(sp4-el): 80.1 ml LA dimension(2D): 4.6 cm LA A4 area: 23.2 cm2 RA A4 area: 22.5 cm2 Time Measurements MV dec time: 0.25 sec Doppler Measurements & Calculations MV E max jesse: 98.2 cm/sec Lat Peak E' Jesse: 11.6 cm/sec Med Peak E' Jesse: 13.1 cm/sec MV A max jesse: 92.4 cm/sec E/E' lat: 8.5 E/E' med: 7.5 MV E/A: 1.1 Ao V2 max: 173.3 cm/sec LV V1 max: 127.3 cm/sec PA V2 max: 124.0 cm/sec Ao max P.1 mmHg LV V1 max P.5 mmHg PA V2 mean: 98.6 cm/sec Ao V2 mean: 110.5 cm/sec LV V1 mean P.4 mmHg Ao mean P.7 mmHg LV V1 mean: 85.9 cm/sec Ao V2 VTI: 33.9 cm LV V1 VTI: 30.4 cm AV (velocity ratio): 0.90 ECHO/Echo Complete W/ Contrast Interpretation Summary The left ventricular ejection fraction is 65 %. The left atrium is moderately enlarged. The right atrium is mildly enlarged. The study was technically difficult with suboptimal images due to body habitus. Ordering Physician: Forrest Bruce Referring Physician: Ida Norris Performed By: Ramona Montgomery, CAITLYN, RVT
[2023-03-26] MEDS: predniSONE 10 MG Tablet PO (17:43)
[2023-03-26] MEDS: Bumetanide 1 MG/4 ML Vial IV (17:44)
[2023-03-26] MEDS: 0.9% Saline Lock 10 ML Syringe IV ×2 (17:44→22:10)
[2023-03-26 19:33] LABS: Hemoglobin A1c 6.4 % (3.8-5.6)
[2023-03-26] MEDS: Albuterol 2.5 MG/3 ML VIAL.NEB. INHALATION (20:29)
[2023-03-26] MEDS: Gabapentin 100 MG Capsule PO (22:09)
[2023-03-26] MEDS: diazePAM 5 MG Tablet 10 MG PO (22:09)
[2023-03-26] MEDS: Pantoprazole Sodium 20 MG Tablet PO (22:10)
[2023-03-26] MEDS: Nystatin Powder 15gm Bottle 1 APPLIC TOPICAL (22:10)
[2023-03-26] MEDS: Atorvastatin Calcium 40 MG Tablet PO (22:10)
[2023-03-26] MEDS: Dabigatran Etexilate Mesylate 150 MG Capsule PO (22:10)
[2023-03-27] VITALS (10 sets, daily range): BP systolic 121–145; BP diastolic 47–79; PULSE 68–95; RESP 16–20; TEMP 36.3–36.8; O2SAT 92–95
--- NOTE | 2023-03-27 00:41 | PCM.HP.STD ---
HPI - General General Date of Admission: 03/26/23 Date of Service: 03/26/23 Chief Complaint: Hypervolemia, scrotal swelling HPI Narrative CAYLA GRANADOS is a 52 M with history of COPD on home 4 L O2, current smoker, hypertension, type 2 diabetes, anemia, DVT on dabigatran, RA and chronic pain who presented to the [facility] ED on 03/26/2023 with hypervolemia and worsening scrotal swelling. Patient seen at bedside, family member present. Patient sitting comfortably in bed, conversing normally, in no acute distress. States that his lower extremity swelling and scrotal edema have been getting worse over the last several weeks. He was seen in the ED twice in the last week for scrotal edema, as he was concerned for a possible infection. He has had lower extremity pitting edema in the past, but is never had scrotal edema before. He states that ambulation has been very difficult for him because of this. He has remained stable on his home amount of oxygen. He denies any fevers or chills. Denies any other acute concerns at this time. Labs on admit were notable for WBC count of 13.7, hemoglobin 7.8 (baseline around 8), normal BMP. Chest x-ray showed cardiomegaly with central pulmonary vascular prominence, along with bilateral opacities in the lungs consistent with pulmonary edema. [facility] Medical History (Updated 03/26/23 @ 17:[address] Shakila Levine, DO) Abscess of deep perineal space Anemia Anxiety Atherosclerotic heart disease of [place] coronary artery without angina pectoris Chest pain Chronic hypoxemic respiratory failure Chronic pain Chronic prescription benzodiazepine use Chronic steroid use Colon polyps COPD (chronic obstructive pulmonary disease) Depression DVT (deep venous thrombosis) Essential hypertension Family history of premature CAD GERD (gastroesophageal reflux disease) Goiter History of Chanel's gangrene HLD (hyperlipidemia) Hypothyroidism IBS (irritable bowel syndrome) Intertrigo Kidney stones Left against medical advice Non-healing surgical wound NSTEMI, initial episode of care On home oxygen therapy BERT (obstructive sleep apnea) Pain in scapula PTSD (post-traumatic stress disorder) Rheumatoid arthritis Sleep apnea Smoker Super obesity Superficial thrombophlebitis of leg Thrush Type 2 diabetes mellitus Ulcer of scrotum Home Medications diazepam 10 mg tablet (Valium) 10 mg PO 4X/DAY PRN Anxiety 03/03/16 [History Last Taken 08/15/22] albuterol sulfate 90 mcg/actuation aerosol inhaler (Ventolin HFA) 1 - 2 puff inhalation UD PRN Sob &/Or Wheezing 07/07/20 [History Last Taken 08/11/22] ascorbic acid (vitamin C) 500 mg capsule 500 mg PO DAILY SUPPLEMENT 07/07/20 [History Last Taken 03/26/23] gabapentin 100 mg capsule 100 mg PO QHS neuropathy 07/07/20 [History Last Taken 03/25/23] omeprazole 20 mg capsule,delayed release 20 mg PO BID ACID REFLUX 07/07/20 [History Last Taken 03/26/23] glipizide 2.5 mg tablet, extended release 24 hr 2.5 mg PO DAILY DIABETES 09/06/21 [History Last Taken 03/26/23] furosemide 20 mg tablet 40 mg PO DAILY FLUID 03/12/22 [History Last Taken 03/26/23] ammonium lactate 12 % topical cream 1 applic topical BID LEGS 08/16/22 [History Last Taken 03/26/23] aspirin 81 mg tablet,delayed release 81 mg PO DAILY HEART HEALTH 08/16/22 [History Last Taken 03/26/23] atorvastatin 40 mg tablet 40 mg PO QHS CHOLESTEROL 08/16/22 [History Last Taken 03/25/23] bumetanide 1 mg tablet 1 - 2 mg PO DAILY PRN FLUID 08/16/22 [History Last Taken Unknown] cholecalciferol (vitamin D3) 1,250 mcg (50,000 unit) capsule 1,250 mcg PO TH SUPPLEMENT 08/16/22 [History Last Taken 03/26/23] dabigatran etexilate 150 mg capsule (Pradaxa) 150 mg PO BID BLOOD THINNER 08/16/22 [History Last Taken 03/26/23] fluticasone propionate 50 mcg/actuation nasal spray,suspension 2 spray intranasal DAILY PRN Nasal Congestion 08/16/22 [History Last Taken Unknown] furosemide 20 mg tablet 20 mg PO LUNCH FLUID 08/16/22 [History Last Taken 03/26/23] levothyroxine 150 mcg tablet 300 mcg PO DAILY THYROID 08/16/22 [History Last Taken 03/26/23] losartan 25 mg tablet 25 mg PO BID BLOOD PRESSURE 08/16/22 [History Last Taken 03/26/23] metoprolol tartrate 25 mg tablet 25 mg PO BID BLOOD PRESSURE 08/16/22 [History Last Taken 03/26/23] miconazole nitrate 2 % topical cream 1 applic topical BID FUNGAL INFECTION 08/16/22 [History Last Taken 03/26/23] nicotine 21 mg/24 hr daily transdermal patch 1 patch transdermal DAILY NICOTINE WITHDRAWAL 08/16/22 [History Last Taken 03/26/23] nystatin 100,000 unit/gram topical powder (Nyamyc) 1 applic topical BID SKIN FOLDS 08/16/22 [History Last Taken 03/26/23] oxycodone 5 mg tablet 5 mg PO Q6H PRN Pain 08/16/22 [History Last Taken Unknown] prednisone 10 mg tablet 10 mg PO BID STEROID 08/16/22 [History Last Taken 03/26/23] ticagrelor 90 mg tablet (Brilinta) 90 mg PO BID BLOOD THINNER 08/16/22 [History Last Taken 03/26/23] fluconazole 200 mg tablet 200 mg PO DAILY FUNGAL INFECTION 03/26/23 [History Last Taken 03/26/23] sulfamethoxazole 800 mg-trimethoprim 160 mg tablet 1 tab PO BID INFECTION 03/26/23 [History Last Taken 03/26/23] Allergy/AdvReac Type Severity Reaction Status Date / Time Penicillins Allergy Hives Verified 03/26/23 11:11 etanercept [From Enbrel] AdvReac Swelling Verified 03/26/23 11:11 rivaroxaban [From Xarelto] AdvReac Nausea Verified 03/26/23 11:11 warfarin sodium AdvReac Nausea Verified 03/26/23 11:11 [From Coumadin] Family History Other Cancer Heart disease Kidney disease Surgical History History of coronary artery stent placement (03/25/21) Social History household members: family Smoking Status: Heavy Smoker (>10/day) substance use type: does not use ROS Constitutional Constitutional: Reports change in weight and fatigue; Denies chills or fever(s) Cardiovascular Cardiovascular: Denies chest pain, dyspnea on exertion, edema or lightheadedness Respiratory/Chest Respiratory/Chest: Denies cough Gastrointestinal Gastrointestinal: Denies abdominal pain Genitourinary Genitourinary: Denies dysuria Neurologic Neurologic: Reports abnormal gait Vital Signs Vital Signs Vital Signs: 03/26/23 11:10 03/26/23 11:19 03/26/23 13:43 Temperature 97.8 F Temperature Source Temporal Pulse Rate 87 72 Pulse Strength Respiratory Rate 26 H 20 H Respiratory Effort Respiratory Depth Respiratory Pattern Blood Pressure 132/69 H 140/61 H Blood Pressure Mean 90 87 Blood Pressure Source Blood Pressure Position Blood Pressure Location Pulse Ox 96 92 Oxygen Delivery Method Nasal Cannula Nasal Cannula Oxygen Flow Rate (L/min) 4 4 03/26/23 14:47 03/26/23 16:00 03/26/23 18:48 Temperature 98 F 96.6 F L Temperature Source Temporal Oral Pulse Rate 71 77 Pulse Strength Respiratory Rate 19 H 16 Respiratory Effort Respiratory Depth Respiratory Pattern Blood Pressure 141/73 H 129/58 H Blood Pressure Mean 95 81 Blood Pressure Source Monitor Blood Pressure Position Semi-Fowlers Blood Pressure Location Right Forearm Pulse Ox 94 94 94 Oxygen Delivery Method Nasal Cannula Nasal Cannula Nasal Cannula Oxygen Flow Rate (L/min) 4 4 4 03/26/23 16:00 03/26/23 20:30 03/26/23 22:00 Temperature 97.5 F L Temperature Source Oral Pulse Rate 84 102 H Pulse Strength Respiratory Rate 20 H 18 Respiratory Effort Normal Non-Labored Respiratory Depth Normal Respiratory Pattern Normal Normal Blood Pressure 141/73 H Blood Pressure Mean 95 Blood Pressure Source Monitor Blood Pressure Position Semi-Fowlers Blood Pressure Location Right Forearm Pulse Ox 98 Oxygen Delivery Method Nasal Cannula Nasal Cannula Oxygen Flow Rate (L/min) 4 4 03/26/23 22:00 Temperature Temperature Source Pulse Rate Pulse Strength Weak (1+) Respiratory Rate Respiratory Effort Respiratory Depth Respiratory Pattern Blood Pressure Blood Pressure Mean Blood Pressure Source Blood Pressure Position Blood Pressure Location Pulse Ox Oxygen Delivery Method Oxygen Flow Rate (L/min) Weight Weight: 214.9 kg Body Mass Index (BMI) 62.5 Physical Exam Const alert and oriented x3 Constitutional Narrative: Pleasant male, morbidly obese, sitting comfortably in bed, conversing normally, satting well on home 4 L nasal cannula, no increased work of breathing noted. General Appearance: cooperative HEENT normocephalic, head/scalp atraumatic, hearing grossly normal bilaterally, nasal mucous membranes and turbinates normal and moist oral mucous membranes Eyes PERRL, EOMs intact bilaterally and conjunctivae normal Neck full ROM, no lymphadenopathy and supple Lymph Lymphatic: no lymphadenopathy noted Chest inspection of chest normal Resp normal respiratory effort and no use of accessory muscles Resp Narrative: Crackles noted bilaterally. No wheezing noted. Mildly diminished air movement bilaterally. Cardio regular rate, regular rhythm, no murmurs and peripheral pulses 2+ throughout GI normal to inspection, nondistended, normoactive bowel sounds, soft to palpation, non-tender and non-distended Back/Spine normal ROM Extremity normal to inspection, full ROM and no pedal edema Skin no rashes or lesions noted Psych mental status grossly normal Results Lab / Micro Data 03/26/23 12:25 03/26/23 12:25 Labs: Laboratory Results - last 24 hr 03/26/23 12:25: WBC 13.7 H, RBC 4.11 L, Hgb 7.8 L, Hct 31.0 L, MCV 75.4 L, MCH 19.0 L, MCHC 25.2 L, RDW Std Deviation 54.9 H, RDW Coeff of Kris 20.2 H, Plt Count 340, MPV 8.9, Immature Gran % (Auto) 0.500, Neut % (Auto) 86.0 H, Lymph % (Auto) 8.6 L, [place] % (Auto) 3.9, Eos % (Auto) 0.7, Baso % (Auto) 0.3, Absolute Neuts (auto) 11.8 H, Absolute Lymphs (auto) 1.17, Nucleated RBC % 0.1, Anisocytosis 1+, Sodium 138, Potassium 4.5, Chloride 104, Carbon Dioxide 30.0, Anion Gap 4 L, BUN 11, Creatinine 1.11, Estim Creat Clear Calc 86.98, Est GFR (MDRD) Af Amer 89, Est GFR (MDRD) Non-Af 74, BUN/Creatinine Ratio 9.9 L, Glucose 97, Calcium 8.6, B-Natriuretic Peptide 30.5 03/26/23 18:30: Hemoglobin A1c 6.4 H Rhythm Strip Rhythm Strip: Sinus Rhythm Rate: 78 Ectopy: None Radiology Impression Chest X-Ray 03/26/23 13:00 IMPRESSION: Cardiomegaly with central pulmonary vascular prominence. Bilateral opacities in the lungs, right more than left. Pulmonary edema cannot be excluded. Electronically Signed: Shamir Dean DO at 13:40 EDT Reading Location ID and State: [facility] / [place] Tel [phone], Service support , Assessment & Plan Assessment/Plan (1) Scrotal edema: PLAN: Plan Patient is a 52 M with history of COPD on home 4 L O2, current smoker, hypertension, type 2 diabetes, anemia, DVT on dabigatran, RA and chronic pain who presented to the [facility] ED on 03/26/2023 with hypervolemia and worsening scrotal swelling. 1. Hypervolemia, scrotal swelling Most likely due to under diuresis at home in setting of medication nonadherence. Unclear what patient's home regimen is, as medication list includes both Bumex and Lasix. On conversation with patient, it appeared that he was taking Lasix. Was only taking this once daily in the morning, because he was having difficulty ambulating to the bathroom multiple times per day. Appears that Lasix was prescribed for lower extremity edema. Now with pitting edema up to his waist, along with severe scrotal edema. Chest x-ray shows evidence of volume overload as noted above. ?We will start IV Bumex 1 mg twice daily for now. Monitor urine output and BMP. Scrotal support as needed. Notably had echo done in 2020 that showed a normal EF, no other overt abnormalities (poor windows for visualization given patient's body habitus). Will reorder echo to assess for pulmonary hypertension in setting of longstanding COPD. PT/OT/case management consulted. 2. COPD on home O2 ? On home 4 L nasal cannula. Currently satting in the high 80s to low 90s on his home oxygen. Continue home inhalers. 3. Current smoker ? Smokes about 1.5 to 2 packs/day. Nicotine patch ordered. Encouraged cessation. 4. Hypertension ? Continue home Lopressor. 5. Hypothyroidism ? Continue home Synthroid. 6. Rheumatoid arthritis ? Continue home prednisone 10 mg twice daily. 7. Chronic back pain ? Continue home oxycodone 5 mg every 6 as needed. 8. History of DVT ? Continue home dabigatran. DVT prophylaxis: Dabigatran CODE STATUS: Full code, verified Expected disposition: TBD Total clinical time spent by myself addressing the patient's medical issues, reviewing all the data, and collaborating with patient's care team: 55 minutes. Charges/Coding Visit Charges Inpatient E&M: 36263 Init Hosp L2
[2023-03-27] MEDS: Levothyroxine 150 MCG Tablet 300 MCG PO (05:42)
--- NOTE | 2023-03-27 06:20 | PN.HOSP_ITS ---
Reason for Visit Reason for Visit: Diagnoses Other specified disorders of the male genital organs (03/26/23) Subjective Subjective Patient with no acute events overnight per self or per nursing report but still complains of significant swelling to his lower extremities and scrotal region with more aggressive elevation of the scrotum and skin care initiated this morning. Following evaluation and palpation of the scrotal region decision for scrotal ultrasound to be obtained and this is pending. Patient denies fevers, chills, nausea, emesis, abdominal pain, chest pain or dyspnea. Objective Data Objective Data Vital Signs: Vital Signs Temp Pulse Resp BP Pulse Ox O2 Del Method O2 Flow Rate 97.5 F L 81 18 121/71 H 95 Nasal Cannula 4 03/27/23 04:11 03/27/23 04:11 03/27/23 04:11 03/27/23 04:11 03/27/23 04:11 03/27/23 04:13 03/27/23 04:13 Oxygen Flow Rate (L/min) 4 Oxygen Delivery Method Nasal Cannula Weight: 473 lb 12.374 oz Body Mass Index (BMI) 62.5 Intake & Output: Intake and Output for Last 24 Hours 03/25/23 03/26/23 03/27/23 23:59 23:59 23:59 Intake Total 340 / 340 Output Total 3850 / 3850 500 / 500 Balance -3510 / -3510 -500 / -500 Lab / Micro Data 03/27/23 05:52 03/27/23 05:52 Labs: Laboratory Results - last 24 hr 03/26/23 12:25: WBC 13.7 H, RBC 4.11 L, Hgb 7.8 L, Hct 31.0 L, MCV 75.4 L, MCH 19.0 L, MCHC 25.2 L, RDW Std Deviation 54.9 H, RDW Coeff of Kris 20.2 H, Plt Count 340, MPV 8.9, Immature Gran % (Auto) 0.500, Neut % (Auto) 86.0 H, Lymph % (Auto) 8.6 L, [place] % (Auto) 3.9, Eos % (Auto) 0.7, Baso % (Auto) 0.3, Absolute Neuts (auto) 11.8 H, Absolute Lymphs (auto) 1.17, Nucleated RBC % 0.1, Anisocytosis 1+, Sodium 138, Potassium 4.5, Chloride 104, Carbon Dioxide 30.0, Anion Gap 4 L, BUN 11, Creatinine 1.11, Estim Creat Clear Calc 86.98, Est GFR (MDRD) Af Amer 89, Est GFR (MDRD) Non-Af 74, BUN/Creatinine Ratio 9.9 L, Glucose 97, Calcium 8.6, B-Natriuretic Peptide 30.5 03/26/23 18:30: Hemoglobin A1c 6.4 H Radiography Diagnostic Testing: Radiology Impression Chest X-Ray 03/26/23 13:00 IMPRESSION: Cardiomegaly with central pulmonary vascular prominence. Bilateral opacities in the lungs, right more than left. Pulmonary edema cannot be excluded. Electronically Signed: Shamir Dean DO at 13:40 EDT Reading Location ID and State: [facility] / [place] Tel [phone], Service support , Rhythm Strip Rhythm Strip: Sinus Rhythm Rate: 78 Ectopy: None Physical Exam Narrative Physical Examination: General: Awake, alert, oriented x 3 and cooperative, seated upright in PCU bed, fatigued, no acute distress. Skin: Normal color, normal turgor, no icterus, no cyanosis except for intertrigo evidence and folds as well as mild beefy redness around the groin region in addition to chronic draining nonpurulent appearing buttock ulcers. HEENT: AT/NC, EOMI, PERRLA, mildly dry MM. Lungs: Diminished, distant breath sounds, greater bases, proper effort, no appreciated rales, ronchi or wheezing. Heart: Regular rate and rhythm; no gallop, rub audible. Abdomen: Soft, morbidly obese, NTTP, distant BS, difficult to assess distention given habitus. Extremities: No cyanosis, no clubbing, significant bilateral lower extremity pitting edema pedal he up through lower abdomen. Neurological: Patient awake, alert, oriented as noted, cognitive function intact; pupils equally reactive to light and accommodation, cranial nerves II- XII grossly normal, moving all 4 extremities, no focal deficits, strength moderately to severely global decrease secondary to acute presentation. Psychiatric: Affect appears mildly irritable, no acute evidence of depressive or anxiety feelings. Assessment & Plan Assessment/Plan (1) Scrotal edema: PLAN: Plan The patient is a 52 y/o M w/ PMHx: Rheumatoid arthritis, Tobacco use, Morbid obesity, COPD w/ Chronic Hypoxic Respiratory Failure (4L NC), Anxiety and Depression, Hx VTE, HTN, HLD, GERD, Hypothyroidism, Hx Chanel's gangrene, Rheumatoid arthritis, BERT, Tobacco use, IBS, Diabetes mellitus type II with chronic neuropathy, CAD s/p PCI, Chronic anemia/Fe Deficiency anemia, recent ED evaluation 03/16/23 secondary to draining left buttock abscess as well as concern for right scrotal region as well with no abscess noted during ED visit discharge to home on continued outpatient oral Bactrim therapy with return 03/19/2023 for scrotal swelling with visiting nurse reported concern about possible yeast infection prompting referral to the ED discharged to home with continued out patient oral antibiotics and recommended nystatin topical twice daily be increased to 4 times daily who now again represents to the [facility] ED on 03/26/23 with increasing peripheral edema as well as increased scrotal swelling and discomfort prompting ED reevaluation. #1. Significant lower extremity anasarca with Acute CHF Exacerbation, unclear type, multifactorial complicated by #2 and notable medication diuretic noncompliance: Work-up in the ED included T97.8, heart rate 87, BP 132/69, respiratory rate 26, 96% on 4L NC, CBC with WBC 13.7, Hgb 7.8, MCV 75.3, Plts 340 with left shift, BMP unremarkable, BNP 30.5, CXR w/ Cardiomegaly with central pulmonary vascular prominence, BL opacities in the lunds, R>L. In the ED patient ministered Lasix 40 mg IV x1 as well as [place] 1 tablet p.o. x1. Admit pawan to PCU, maintained on telemetry, continued IV bumex diuresis, monitor I/Os, continued medical therapy, TSH 0.21 but FT4 1.33 thus subclinical, mag 2.3. 03/25/2021 echocardiogram with normal LV size, normal LV systolic function, EF 65% thus repeated with ECHO with LVEF 65%, moderately enlarged LA, mildly enlarged RA, technically difficult with suboptimal images due to body habitus. Continue interventions for skin care and chronic wounds as noted #2. Scrotal US also ordered to be cautious. #2. Chronic draining buttock abscesses as well as significant intertrigo: We will request wound RN consultation, pending Wound Cx and wound MRSA PCR to be cautious of continued drainage however recently completed Bactrim therapy, plan repeat CBC in AM, offloading as able, monitor erythema outline with VS checks, aggressive groin care and topical nystatin application, additionally will elevate scrotum with a pillow and wrap sheet between the 2 skin folds to assist following cleansing and gentle pat down with nystatin application. Scrotal US also ordered to be cautious. #3. Chronic normocytic anemia/iron deficiency anemia: Admission hemoglobin 7.8, MCV 75.3, more recent baseline since August 10, has certainly decreased since the year prior with baseline at that time primarily -, 03/27/23 repeat Hgb 7.8, will obtain Fe panel/ferritin, guiac to be cautious given notable antiplt/anticoagulation regimen. #4. Chronic COPD with chronic hypoxic respiratory failure (4L NC) and allergic rhinitis: Will maintain on home oxygen supplementation, continue ATC budesonide, PRN albuterol, HOB, IS parameters, continue patient home fluticasone regimen. #5. CAD: Status post PCI, will continue patient home baby aspirin, Brilinta, Pradaxa, metoprolol, losartan home regimen. #6. Diabetes mellitus type II with chronic neuropathy: Hold oral home regimen, hemoglobin A1c 6.4%, ADA diet, accu checks w/ ISS, continue patient home chronic gabapentin regimen. #7. Hypothyroidism: We will continue patient on levothyroxine regimen, TSH and free T4 requested. #8. Hypertension: Continue home regimen including metoprolol, losartan, temporally holding oral Lasix with IV bumex usage as noted, PRN hydralazine. #9. Hyperlipidemia: We will continue patient on statin therapy. #10. History of VTE: We will continue patient home Pradaxa regimen #11. Morbid Obesity: Weight loss and lifestyle changes encouraged. #12. Rheumatoid arthritis: Patient on chronic prednisone coupled with chronic oxycodone, will continue cautiously. #13. Tobacco Abuse: Encouraged cessation, inpatient consultation per RT, NR if desired. #14. DVT prophylaxis: Continue patient on Pradaxa regimen. #15. CODE status: Full Code. Charges/Coding Visit Charges Inpatient E&M: 69122 Subs Hosp L3
[2023-03-27 06:24] LABS: Hematocrit 30.8 % (40-54); Hemoglobin 7.8 g/dL (13.0-16.5); Mean Corp Hgb Conc 25.3 g/dL (32-36); Mean Corpuscular Hgb 19.2 pg (27.0-32.0); Mean Corpuscular Volume 75.9 fL (80-94); Mean Platelet Vol. 9.1 fl (6.2-12.0); Platelet Count 338 K/mm3 (150-450); RBC Distribution Width SD 55.2 fl (35.1-43.9); Red Blood Count 4.06 M/mm3 (4.6-6.2); White Blood Count 12.1 K/mm3 (4.4-11.0)
[2023-03-27 06:52] LABS: ALB/GLOB Ratio 0.6 RATIO (0.9-2.4); AST(SGOT) 9 U/L (15-37); Alanine Aminotransfer ALT/SGPT 14 U/L (16-61); Albumin, Serum 2.4 g/dL (3.2-5.0); Alkaline Phosphatase 107 U/L (45-117); Anion Gap 3 (5-15); BUN 11 mg/dL (7-18); BUN/Creat Ratio 10.6 RATIO (10-20); Calcium,Total 8.3 mg/dL (8.5-10.1); Chloride 103 mmol/L (98-107); Creatinine, Serum 1.04 mg/dL (0.70-1.30); EST Glomerular Filtration Rate 79 mL/min (>60); Est Glom Filt Rate - Afr Amer 96 mL/min (>60); Estimated Creatinine Clearance 92.83 ml/min; Globulin 4.3 g/dL (2.2-4.2); Glucose 119 mg/dL (74-106); Magnesium 2.3 mg/dL (1.6-2.6); Potassium 3.8 mmol/L (3.5-5.1); Protein, Total 6.7 g/dL (6.4-8.2); Sodium Level 141 mmol/L (136-145)
[2023-03-27 07:19] LABS: T4 Free Direct 1.33 ng/dL (0.76-1.46); Thyroid Stim Hormone (TSH) 0.21 uIU/mL (0.358-3.74)
[2023-03-27] MEDS: predniSONE 10 MG Tablet PO ×2 (08:55→17:07)
[2023-03-27] MEDS: Bumetanide 1 MG/4 ML Vial IV ×2 (11:18→17:07)
[2023-03-27] MEDS: Aspirin E.C. 81 MG Tablet PO (11:18)
[2023-03-27] MEDS: Metoprolol Tartrate 25 MG Tablet PO ×2 (11:19→21:39)
[2023-03-27] MEDS: Pantoprazole Sodium 20 MG Tablet PO ×2 (11:20→21:44)
[2023-03-27] MEDS: Dabigatran Etexilate Mesylate 150 MG Capsule PO ×2 (11:20→21:39)
--- NOTE | 2023-03-27 11:20 | CASEMGMT ---
STANISLAW ANSARI Face to Face with patient for initial transition planning/care coordination assessment. RN COTY introduced self and role at [facility]. Patient lying in bed, alert and oriented. Patient willing to participate in assessment and is able to answer all questions appropriately. Care providers, pharmacy, and demographics verified. Patient wishes to discharge home with resumption of HHC with [facility]. Patient states he has no further needs or concerns at this time. CM to follow for discharge planning needs that may arise. PCP: Jr Specialists: none Preferred Pharmacy: [facility] Insurance: GroupCard Prescription Benefit: yes Living Will/HPOA: none LNOK: mother, son, daughter Living Arrangements: Patient lives with mother in a mobile home with chair lift or 5 steps and railing. Patient states he is independent at home. Transportation: self, children DME/HHC: Patient has shower chair, raised toilet, cane, walker, grab bars, nebulizer, pulse ox, scooter, [facility] with [facility], patient states he has portable tank with him from home. Disposition Plan: Patient to discharge home with resumption of HHC, family support and follow-up plans in place. Roselyn ABRAHAM, RN, CM
[2023-03-27] MEDS: Nystatin Powder 15gm Bottle 1 APPLIC TOPICAL ×2 (11:21→21:37)
--- NOTE | 2023-03-27 12:11 | US_ITS ---
STUDY: SCROTUM ULTRASOUND REASON FOR EXAM: Male, 52 years old. Painful, swollen TECHNIQUE: Ultrasound evaluation of the scrotum was performed with color Doppler and static groves-scale imaging. COMPARISON: None. FINDINGS: RIGHT TESTICLE INTRATESTICULAR: There is a normal size of the right testicle. The right testicle measures 4.4 x 2.6 x 2.7 cm. There is a homogenous echotexture. There is normal arterial and normal venous vascularity. There is no demonstrated right testicular mass or cyst. EXTRATESTICULAR: The epididymis is normal in size. The epididymis head measures 1.3 cm. There is normal vascularity of the epididymis. There is no demonstrated epididymal cystic structure. There is a small hydrocele. There is no demonstrated varicocele. There is no demonstrated extratesticular mass or cyst. LEFT TESTICLE INTRATESTICULAR: There is a normal size of the left testicle. The left testicle measures 4.2 x 2.6 x 2.7 cm. There is a homogenous echotexture. There is normal arterial and normal venous vascularity. There is no demonstrated left testicular mass or cyst. EXTRATESTICULAR: The epididymis is normal in size. The epididymis head measures 1.3 cm. There is normal vascularity of the epididymis. There is no demonstrated epididymal cystic structure. There is a small hydrocele. There is no demonstrated varicocele. There is no demonstrated extratesticular mass or cyst. Marked nonspecific diffuse scrotal wall edema and thickening seen. US/Testicular with Arterial Flow IMPRESSION: Normal bilateral testicles. Bilateral small hydroceles. Extensive diffuse scrotal wall edema. Electronically Signed: Vimal Salter MD at 16:20 EDT ,
--- NOTE | 2023-03-27 12:13 | CASEMGMT ---
Discharge Planning Resumption of services referral sent to [facility] via [facility]. Notified of anticipated weekend discharge. Robert placed on chart. Myra Huggins, Discharge Planning Asst.
[2023-03-27] MEDS: diazePAM 5 MG Tablet 10 MG PO (13:02)
--- NOTE | 2023-03-27 15:02 | WOUNDNOTE ---
Was asked to see patient for gluteal wounds. patient states that he had wounds in the past that were lanced on the buttocks. patient has healed area that appear like hidradenitis. there is one small area draining some thick white/pradhan drainage. no open wounds noted. appears to be coming from a small pinpoint open area. obtained and sent culture. not able to express any further drainage at this time. there is no erythema noted. see skin photo.
--- NOTE | 2023-03-27 15:18 | WOUNDNOTE ---
skin photo: gluteal crease
[2023-03-27 17:23] LABS: Ferritin 21 ng/mL (26-388); Iron 13 ug/dL (65-175); Iron Binding Capacity,Total 339 ug/dL (250-450); PERCENT IRON SATURATION 3.8 % (15.0-55.0)
[2023-03-27] MEDS: Albuterol 2.5 MG/3 ML VIAL.NEB. INHALATION (21:17)
[2023-03-27] MEDS: Gabapentin 100 MG Capsule PO (21:37)
[2023-03-27] MEDS: Atorvastatin Calcium 40 MG Tablet PO (21:40)
[2023-03-27] MEDS: oxyCODONE 5 MG Tablet PO (23:40)
[2023-03-28] VITALS (8 sets, daily range): BP systolic 121–133; BP diastolic 54–78; PULSE 80–86; RESP 16–18; TEMP 36.6–36.8; O2SAT 92–95
[2023-03-28] MEDS: 0.9% Saline Lock 10 ML Syringe IV ×4 (04:42→16:36)
[2023-03-28] MEDS: Levothyroxine 150 MCG Tablet 300 MCG PO (06:15)
--- NOTE | 2023-03-28 06:25 | PN.HOSP_ITS ---
Reason for Visit Reason for Visit: Diagnoses Other specified disorders of the male genital organs (03/26/23) Subjective Subjective Patient overnight feels as though the testicle/color region has slightly decreased in size and did discuss at length the scrotal ultrasound with noted mild indurated region therefore decision to initiate on IV antibiotic therapy to which patient is amenable. Discussed following evaluation that intertrigo has improved significantly and importance of keeping the groin folds dry and clean. Patient is reporting right discomfort to the knee potentially from knocking his knee on his way to the hospital, plain film requested and is pending with in the interim brace placed on the need to be cautious. Patient understands intention following this if appropriate to continue physical and Occupational Therapy assessment for discharge home planning. Objective Data Objective Data Vital Signs: Vital Signs Temp Pulse Resp BP Pulse Ox O2 Del Method O2 Flow Rate 98.0 F 80 18 129/78 H 92 Nasal Cannula 4 03/28/23 04:53 03/28/23 04:53 03/28/23 04:53 03/28/23 04:53 03/28/23 04:53 03/28/23 04:53 03/28/23 04:53 Oxygen Flow Rate (L/min) 4 Oxygen Delivery Method Nasal Cannula Weight: 471 lb 12.627 oz Body Mass Index (BMI) 62.5 Intake & Output: Intake and Output for Last 24 Hours 03/26/23 03/27/23 03/28/23 23:59 23:59 23:59 Intake Total 340 / 340 740 / 980 360 / 360 Output Total 3850 / 3850 2700 / 4200 1999 / 1999 Balance -3510 / -3510 -1960 / -3220 -1640 / -1640 Lab / Micro Data 03/28/23 06:00 03/28/23 06:00 Labs: Laboratory Results - last 24 hr 03/27/23 05:52: WBC 12.1 H, RBC 4.06 L, Hgb 7.8 L, Hct 30.8 L, MCV 75.9 L, MCH 19.2 L, MCHC 25.3 L, RDW Std Deviation 55.2 H, RDW Coeff of Kris 20.0 H, Plt Count 338, MPV 9.1, Sodium Cancelled 03/27/23 05:52: Sodium 141, Potassium Cancelled 03/27/23 05:52: Potassium 3.8, Chloride Cancelled 03/27/23 05:52: Chloride 103, Carbon Dioxide Cancelled 03/27/23 05:52: Carbon Dioxide 35.0 H, Anion Gap Cancelled 03/27/23 05:52: Anion Gap 3 L, BUN Cancelled 03/27/23 05:52: BUN 11, Creatinine Cancelled 03/27/23 05:52: Creatinine 1.04, Estim Creat Clear Calc Cancelled 03/27/23 05:52: Estim Creat Clear Calc 92.83, Est GFR (MDRD) Af Amer Cancelled 03/27/23 05:52: Est GFR (MDRD) Af Amer 96, Est GFR (MDRD) Non-Af Cancelled 03/27/23 05:52: Est GFR (MDRD) Non-Af 79, BUN/Creatinine Ratio Cancelled 03/27/23 05:52: BUN/Creatinine Ratio 10.6, Glucose Cancelled 03/27/23 05:52: Glucose 119 H, Calcium Cancelled 03/27/23 05:52: Calcium 8.3 L, Magnesium Cancelled 03/27/23 05:52: Magnesium 2.3, Iron 13 L, TIBC 339, Iron Saturation 3.8 L, Ferritin 21 L, Total Bilirubin 0.40, AST 9 L, ALT 14 L, Alkaline Phosphatase 107, Total Protein 6.7, Albumin 2.4 L, Globulin 4.3 H, Albumin/Globulin Ratio 0.6 L, TSH 0.21 L, Free T4 1.33 Micro: Microbiology 03/27/23 14:50 Wound - Buttock Gram Stain - Final Radiography Diagnostic Testing: Radiology Impression Echocardiogram 03/26/23 15:23 Interpretation Summary The left ventricular ejection fraction is 65 %. The left atrium is moderately enlarged. The right atrium is mildly enlarged. The study was technically difficult with suboptimal images due to body habitus. Ordering Physician: Forrest Bruce Referring Physician: Ida Norris Performed By: Ramona Montgomery, RDCS, RVT Testicular Ultrasound 03/27/23 12:11 IMPRESSION: Normal bilateral testicles. Bilateral small hydroceles. Extensive diffuse scrotal wall edema. Electronically Signed: Vimal Salter MD at 16:20 EDT , Rhythm Strip Rhythm Strip: Sinus Rhythm Rate: 78 Ectopy: None Physical Exam Narrative Physical Examination: General: Awake, alert, oriented x 3 and cooperative, seated upright in PCU bed, no acute distress. Skin: Normal color, normal turgor, no icterus, no cyanosis except for intertrigo notably improved in the folds as well as groin region, some mild indurated skin on the posterior aspect of the scrotum which is likely the thickened area on the scrotal ultrasound, no obvious drainage or marked erythema. HEENT: AT/NC, EOMI, PERRLA, MMM. Lungs: Diminished, distant breath sounds, greater bases, proper effort, no appreciated rales, ronchi or wheezing. Heart: Regular rate and rhythm; no gallop, rub audible. Abdomen: Soft, morbidly obese, NTTP, distant BS, difficult to assess distention given habitus. Extremities: No cyanosis, no clubbing, significant bilateral lower extremity pitting edema pedal he up through lower abdomen. Neurological: Patient awake, alert, oriented as noted, cognitive function intact; pupils equally reactive to light and accommodation, cranial nerves II- XII grossly normal, moving all 4 extremities, no focal deficits, strength moderately to severely global decrease secondary to acute presentation. Psychiatric: Affect appears fatigued otherwise normal, no acute evidence of depressive or anxiety feelings. Assessment & Plan Assessment/Plan (1) Scrotal edema: PLAN: Plan The patient is a 52 y/o M w/ PMHx: Rheumatoid arthritis, Tobacco use, Morbid obesity, COPD w/ Chronic Hypoxic Respiratory Failure (4L NC), Anxiety and Depression, Hx VTE, HTN, HLD, GERD, Hypothyroidism, Hx Chanel's gangrene, Rheumatoid arthritis, BERT, Tobacco use, IBS, Diabetes mellitus type II with chronic neuropathy, CAD s/p PCI, Chronic anemia/Fe Deficiency anemia, recent ED evaluation 03/16/23 secondary to draining left buttock abscess as well as concern for right scrotal region as well with no abscess noted during ED visit discharge to home on continued outpatient oral Bactrim therapy with return 03/19/2023 for scrotal swelling with visiting nurse reported concern about possible yeast infection prompting referral to the ED discharged to home with continued outp atient oral antibiotics and recommended nystatin topical twice daily be increased to 4 times daily who now again represents to the [facility] ED on 03/26/23 with increasing peripheral edema as well as increased scrotal swelling and discomfort prompting ED reevaluation. #1. Significant lower extremity anasarca with Acute CHF Exacerbation, unclear type, multifactorial complicated by #2 and notable medication diuretic noncompliance: Work-up in the ED included T97.8, heart rate 87, BP 132/69, respiratory rate 26, 96% on 4L NC, CBC with WBC 13.7, Hgb 7.8, MCV 75.3, Plts 340 with left shift, BMP unremarkable, BNP 30.5, CXR w/ Cardiomegaly with central pulmonary vascular prominence, BL opacities in the lunds, R>L. In the ED patient ministered Lasix 40 mg IV x1 as well as [place] 1 tablet p.o. x1. Admitted to PCU, maintained on telemetry, continued IV bumex diuresis, monitor I/Os, continued medical therapy, TSH 0.21 but FT4 1.33 thus subclinical, mag 2.3. 03/25/2021 echocardiogram with normal LV size, normal LV systolic function, EF 65% thus repeated with ECHO with LVEF 65%, moderately enlarged LA, mildly enlarged RA, technically difficult with suboptimal images due to body habitus. Continue interventions for skin care and chronic wounds as noted #2. 03/27/23 Scrotal US w/ noted normal bilateral testicles, bilateral small hydroceles, extensive diffuse scrotal wall edema. 03/28/2023 improved appearance of the intertrigo but ongoing thickness and discomfort to the posterior aspect of the scrotum when palpated likely the region of wall edema on the ultrasound, discussed at length with patient and at this point will initiate IV vancomycin given MRSA history. If clinically continues to improve based on prior cultures we will de-escalate to Bactrim upon discharge to home. #2. Chronic draining buttock abscesses as well as significant intertrigo: We will request wound RN consultation, pending Wound Cx and wound MRSA PCR to be cautious of continued drainage however recently completed Bactrim therapy, plan repeat CBC in AM, offloading as able, monitor erythema outline with VS checks, aggressive groin care and topical nystatin application, additionally will elevate scrotum with a pillow and wrap sheet between the 2 skin folds to assist following cleansing and gentle pat down with nystatin application. 03/27/23 Scrotal US w/ noted normal bilateral testicles, bilateral small hydroceles, extensive diffuse scrotal wall edema. As noted patient initiated on IV vancomycin to be cautious, will continue to evaluate and if repeat assessment 03/29/2023 improved would plan discharge to home on Bactrim based on prior culture history. #3. Right knee pain, unclear etiology: No clear specific trauma but from description on his way to the hospital may have bumped it, plain film of the right knee pending, patient requested knee brace which has been ordered to use in the interim and if film looks appropriate will encourage continued usage with PT and OT assessments for discharge planning. #4. Chronic normocytic anemia/iron deficiency anemia: Admission hemoglobin 7.8, MCV 75.3, more recent baseline since August 10 to , has certainly decreased since the year prior with baseline at that time primarily 10-12, 03/27/23 repeat Hgb 7.8->03/28/23 Hgbv 8.3, iron 13, TIBC 339, iron saturation 3.8, ferritin 21 consistent with iron deficiency anemia with oral Fe supplementation started and if BM will also obtain guiac to be cautious given notable antiplt/anticoagulation regimen. #5. Chronic COPD with chronic hypoxic respiratory failure (4L NC) and allergic rhinitis: Will maintain on home oxygen supplementation, continue ATC budesonide, PRN albuterol, HOB, IS parameters, continue patient home fluticasone regimen. #6. CAD: Status post PCI, will continue patient home baby aspirin, Brilinta, Pradaxa, metoprolol, losartan home regimen. #7. Diabetes mellitus type II with chronic neuropathy: Hold oral home regimen, hemoglobin A1c 6.4%, ADA diet, accu checks w/ ISS, continue patient home chronic gabapentin regimen. #8. Hypothyroidism: We will continue patient on levothyroxine regimen, TSH and free T4 requested. #9. Hypertension: Continue home regimen including metoprolol, losartan, temporally holding oral Lasix with IV bumex usage as noted, PRN hydralazine. #10. Hyperlipidemia: We will continue patient on statin therapy. #11. History of VTE: We will continue patient home Pradaxa regimen #12. Morbid Obesity: Weight loss and lifestyle changes encouraged. #13. Rheumatoid arthritis: Patient on chronic prednisone coupled with chronic oxycodone, will continue cautiously. #14. Tobacco Abuse: Encouraged cessation, inpatient consultation per RT, NR if desired. #15. DVT prophylaxis: Continue patient on Pradaxa regimen. #16. CODE status: Full Code. Charges/Coding Visit Charges Inpatient E&M: 41461 Subs Hosp L3
[2023-03-28 07:05] LABS: Absolute Lymphocyte Count 2.42 X10^3/uL (0.83-4.51); Absolute Neutrophil Count 8.2 X10^3/uL (2.0-7.7); Basophil# 0.06 X10^3/uL; Basophil% 0.5 % (0-1); Eosinophil# 0.14 X10^3/uL; Eosinophils% 1.2 % (0-5); Hematocrit 32.5 % (40-54); Hemoglobin 8.3 g/dL (13.0-16.5); Lymphocyte # 2.42 X10^3/ul (0.83-4.51); Mean Corp Hgb Conc 25.5 g/dL (32-36); Mean Corpuscular Hgb 19.3 pg (27.0-32.0); Mean Corpuscular Volume 75.8 fL (80-94); Monocyte# 0.61 X10^3/uL; Monocyte% 5.3 % (0-10); NRBC Flagged by Analyzer 0.3 % (0-5); Neutrophil # 8.24 X10^3/uL (2.7-7.7); Neutrophil % 71.5 % (47-70); POSITIVE MORPHOLOGY YES; Platelet Count 349 K/mm3 (150-450); RBC Distribution Width CV 20.1 % (11.6-14.6); RBC Distribution Width SD 54.9 fl (35.1-43.9); Red Blood Count 4.29 M/mm3 (4.6-6.2); White Blood Count 11.5 K/mm3 (4.4-11.0)
[2023-03-28 07:50] LABS: Differential Indicated SCAN CRITERIA MET
[2023-03-28 07:55] LABS: ALB/GLOB Ratio 0.5 RATIO (0.9-2.4); AST(SGOT) 10 U/L (15-37); Alanine Aminotransfer ALT/SGPT 16 U/L (16-61); Albumin, Serum 2.5 g/dL (3.2-5.0); Alkaline Phosphatase 105 U/L (45-117); Anion Gap 3 (5-15); BUN 14 mg/dL (7-18); BUN/Creat Ratio 14.2 RATIO (10-20); Calcium,Total 8.8 mg/dL (8.5-10.1); Chloride 102 mmol/L (98-107); Creatinine, Serum 0.98 mg/dL (0.70-1.30); EST Glomerular Filtration Rate 85 mL/min (>60); Est Glom Filt Rate - Afr Amer 102 mL/min (>60); Estimated Creatinine Clearance 98.52 ml/min; Globulin 4.6 g/dL (2.2-4.2); Glucose 120 mg/dL (74-106); Protein, Total 7.1 g/dL (6.4-8.2); Sodium Level 143 mmol/L (136-145)
[2023-03-28] MEDS: Dabigatran Etexilate Mesylate 150 MG Capsule PO ×2 (08:44→22:29)
[2023-03-28] MEDS: Bumetanide 1 MG/4 ML Vial IV ×2 (08:45→16:36)
[2023-03-28] MEDS: Aspirin E.C. 81 MG Tablet PO (08:45)
[2023-03-28] MEDS: Pantoprazole Sodium 20 MG Tablet PO ×2 (08:45→22:30)
[2023-03-28] MEDS: predniSONE 10 MG Tablet PO ×2 (08:45→16:36)
[2023-03-28] MEDS: Nystatin Powder 15gm Bottle 1 APPLIC TOPICAL ×2 (08:45→22:30)
[2023-03-28] MEDS: Metoprolol Tartrate 25 MG Tablet PO ×2 (08:45→22:29)
[2023-03-28 10:45] LABS: Anisocytosis 2+; Differential Comment SCANNED
[2023-03-28 10:46] LABS: Macrocytosis 1+; Microcytosis 1+
--- NOTE | 2023-03-28 12:23 | CASEMGMT ---
STANISLAW CM: Confirmed with pt he has a walker at home and denies needing a second one a this time. Panda Cedeño RN CM
--- NOTE | 2023-03-28 13:48 | RAD_ITS ---
INDICATION: Trauma, right knee injury with pain EXAMINATION/TECHNIQUE: X-RAY - RIGHT XR Knee 3 Views 3 VIEWS COMPARISON: None. FINDINGS: SOFT TISSUES: No soft tissue swelling or gas. No radiopaque foreign body. BONES/JOINTS: No acute fracture. Joint spaces anatomically aligned. No sclerotic or destructive changes observed. RAD/Knee 3 Views IMPRESSION: No acute bony injury. Electronically Signed: Percy Ambrocio MD at 17:51 EDT ,
--- NOTE | 2023-03-28 14:31 | PHA.PHARE_ITS ---
Consult Antibiotic Management Pharmacy has been consulted to manage selected antiobiotic: Vancomycin Type of Intervention Type of Consult: New start Labs Labs: Sodium 143 mmol/L (136-145) 03/28/23 06:00 Potassium 4.0 mmol/L (3.5-5.1) 03/28/23 06:00 Chloride 102 mmol/L (98-107) 03/28/23 06:00 Carbon Dioxide 38.0 mmol/L (21.0-32.0) H 03/28/23 06:00 Anion Gap 3 (5-15) L 03/28/23 06:00 BUN 14 mg/dL (7-18) 03/28/23 06:00 Creatinine 0.98 mg/dL (0.70-1.30) 03/28/23 06:00 Est GFR (MDRD) Af Amer 102 mL/min (>60) 03/28/23 06:00 Est GFR (MDRD) Non-Af 85 mL/min (>60) 03/28/23 06:00 BUN/Creatinine Ratio 14.2 RATIO (10-20) 03/28/23 06:00 Glucose 120 mg/dL (74-106) H 03/28/23 06:00 Microbiology Microbiology: Microbiology 03/27/23 14:50 Wound - Buttock Gram Stain - Final Dosing Weight Weight used for dosin kg Estimated Creatinine Clearance Estimated Creatinine Clearance: >100ML/MIN Goal Trough Goal Trough: 15-20 mcg/mL Pharmacy Plan for Drug Dosing Pharmacy Plan for Drug Dosing: Give loading dose of 2000mg IV x1, then continue with 1500mg IV q8h per [facility] dosing protocol. Will check a trough before the 4th total dose. The patient's CrCl of >100ml/min was calculated using an adjusted body weight. Pharmacy Service will continue to monitor and adjust dosing as required. Follow-Up Labs Follow-Up Labs: Trough: Vancomycin Date/Time Labs Ordered Labs to be done on [date and time ordered]: 03/29/23 13:30
[2023-03-28] MEDS: Ferrous Gluconate 324 MG Tablet PO (16:36)
--- NOTE | 2023-03-28 17:38 | NURSING ---
Patient refusing to wear tele monitor despite being educated on reasoning for it.
[2023-03-28] MEDS: Atorvastatin Calcium 40 MG Tablet PO (22:29)
[2023-03-28] MEDS: Gabapentin 100 MG Capsule PO (22:29)
[2023-03-29] MEDS: oxyCODONE 5 MG Tablet PO (00:08)
[2023-03-29 04:17] VITALS: PULSE 78; RESP 18; TEMP 36.8; O2SAT 94
[2023-03-29 05:37] LABS: Absolute Lymphocyte Count 2.56 X10^3/uL (0.83-4.51); Absolute Neutrophil Count 9.3 X10^3/uL (2.0-7.7); Basophil# 0.05 X10^3/uL; Basophil% 0.4 % (0-1); Eosinophil# 0.21 X10^3/uL; Eosinophils% 1.6 % (0-5); Hematocrit 32.6 % (40-54); Hemoglobin 8.2 g/dL (13.0-16.5); Lymphocyte # 2.56 X10^3/ul (0.83-4.51); Lymphocyte % 20.1 % (19-41); Mean Corp Hgb Conc 25.2 g/dL (32-36); Mean Corpuscular Hgb 19.4 pg (27.0-32.0); Mean Corpuscular Volume 77.3 fL (80-94); Mean Platelet Vol. 8.9 fl (6.2-12.0); Monocyte# 0.57 X10^3/uL; Monocyte% 4.5 % (0-10); NRBC Flagged by Analyzer 0 % (0-5); Neutrophil # 9.32 X10^3/uL (2.7-7.7); Platelet Count 339 K/mm3 (150-450); RBC Distribution Width CV 19.9 % (11.6-14.6); RBC Distribution Width SD 55.9 fl (35.1-43.9); Red Blood Count 4.22 M/mm3 (4.6-6.2); White Blood Count 12.8 K/mm3 (4.4-11.0)
[2023-03-29 06:05] LABS: ALB/GLOB Ratio 0.6 RATIO (0.9-2.4); AST(SGOT) 11 U/L (15-37); Alanine Aminotransfer ALT/SGPT 16 U/L (16-61); Albumin, Serum 2.5 g/dL (3.2-5.0); Alkaline Phosphatase 102 U/L (45-117); Anion Gap 2 (5-15); BUN 16 mg/dL (7-18); BUN/Creat Ratio 17.7 RATIO (10-20); Calcium,Total 8.4 mg/dL (8.5-10.1); Chloride 103 mmol/L (98-107); EST Glomerular Filtration Rate 93 mL/min (>60); Est Glom Filt Rate - Afr Amer 113 mL/min (>60); Estimated Creatinine Clearance 107.27 ml/min; Globulin 4.5 g/dL (2.2-4.2); Glucose 106 mg/dL (74-106); Potassium 3.9 mmol/L (3.5-5.1); Sodium Level 142 mmol/L (136-145)
[2023-03-29] MEDS: Levothyroxine 150 MCG Tablet 300 MCG PO (06:19)
--- NOTE | 2023-03-29 06:43 | PN.HOSP_ITS ---
Reason for Visit Reason for Visit: Diagnoses Other specified disorders of the male genital organs (03/26/23) Subjective Subjective Patient with no acute events overnight per self and per nursing report. He notes that the scrotum feels less swollen and the underneath is less tender and less thickened. He notes that his right knee discomfort has lessened and discussed again that his plain film was unremarkable but if he felt improved he can wear the brace to do therapies however he declined as home health assessment was necessary and reports his intention to return to home and is amenable to discharge today. Patient denies fevers, chills, nausea, emesis, abdominal pain, chest pain or dyspnea. Objective Data Objective Data Vital Signs: Vital Signs Temp Pulse Resp BP Pulse Ox O2 Del Method O2 Flow Rate 98.2 F 78 18 133/71 H 94 Nasal Cannula 4 03/29/23 04:17 03/29/23 04:17 03/29/23 04:17 03/28/23 22:29 03/29/23 04:17 03/29/23 04:17 03/29/23 04:15 Oxygen Flow Rate (L/min) 4 Oxygen Delivery Method Nasal Cannula Weight: 471 lb 12.627 oz Body Mass Index (BMI) 62.5 Intake & Output: Intake and Output for Last 24 Hours 03/27/23 03/28/23 03/29/23 23:59 23:59 23:59 Intake Total 740 / 980 1600 / 1800 910 / 910 Output Total 2700 / 4200 3950 / 4450 850 / 850 Balance -1960 / -3220 -2350 / -2650 60 / 60 Lab / Micro Data 03/29/23 05:18 03/29/23 05:18 Labs: Laboratory Results - last 24 hr 03/28/23 06:00: WBC 11.5 H, RBC 4.29 L, Hgb 8.3 L, Hct 32.5 L, MCV 75.8 L, MCH 19.3 L, MCHC 25.5 L, RDW Std Deviation 54.9 H, RDW Coeff of Kris 20.1 H, Plt Count 349, MPV 9.0, Immature Gran % (Auto) 0.500, Neut % (Auto) 71.5 H, Lymph % (Auto) 21.0, [place] % (Auto) 5.3, Eos % (Auto) 1.2, Baso % (Auto) 0.5, Absolute Neuts (auto) 8.2 H, Absolute Lymphs (auto) 2.42, Nucleated RBC % 0.3, Differential Comment SCANNED, Anisocytosis 2+, Microcytosis 1+, Macrocytosis 1+, Sodium 143, Potassium 4.0, Chloride 102, Carbon Dioxide 38.0 H, Anion Gap 3 L, BUN 14, Creatinine 0.98, Estim Creat Clear Calc 98.52, Est GFR (MDRD) Af Amer 102, Est GFR (MDRD) Non-Af 85, BUN/Creatinine Ratio 14.2, Glucose 120 H, Calcium 8.8, Total Bilirubin 0.40, AST 10 L, ALT 16, Alkaline Phosphatase 105, Total Protein 7.1, Albumin 2.5 L, Globulin 4.6 H, Albumin/Globulin Ratio 0.5 L 03/29/23 05:18: WBC 12.8 H, RBC 4.22 L, Hgb 8.2 L, Hct 32.6 L, MCV 77.3 L, MCH 19.4 L, MCHC 25.2 L, RDW Std Deviation 55.9 H, RDW Coeff of Kris 19.9 H, Plt Co unt 339, MPV 8.9, Immature Gran % (Auto) 0.400, Neut % (Auto) 73.0 H, Lymph % (Auto) 20.1, [place] % (Auto) 4.5, Eos % (Auto) 1.6, Baso % (Auto) 0.4, Absolute Neuts (auto) 9.3 H, Absolute Lymphs (auto) 2.56, Nucleated RBC % 0, Sodium 142, Potassium 3.9, Chloride 103, Carbon Dioxide 37.0 H, Anion Gap 2 L, BUN 16, Creatinine 0.90, Estim Creat Clear Calc 107.27, Est GFR (MDRD) Af Amer 113, Est GFR (MDRD) Non-Af 93, BUN/Creatinine Ratio 17.7, Glucose 106, Calcium 8.4 L, Total Bilirubin 0.50, AST 11 L, ALT 16, Alkaline Phosphatase 102, Total Protein 7.0, Albumin 2.5 L, Globulin 4.5 H, Albumin/Globulin Ratio 0.6 L Micro: Microbiology 03/27/23 14:50 Wound - Buttock Gram Stain - Final Radiography Diagnostic Testing: Radiology Impression Knee X-Ray 03/28/23 13:48 IMPRESSION: No acute bony injury. Electronically Signed: Percy Ambrocio MD at 17:51 EDT , Rhythm Strip Rhythm Strip: Sinus Rhythm Rate: 78 Ectopy: None Physical Exam Narrative Physical Examination: General: Awake, alert, oriented x 3 and cooperative, seated upright in PCU bed, no acute distress, notes feeling improved. Skin: Normal color, normal turgor, no icterus, no cyanosis except for resolved intertrigo in folds, scrotum is even less edematous than day prior, some still discomfort to the underside and thickening of the scrotal skin but no marked erythema and again less tender. HEENT: AT/NC, EOMI, PERRLA, MMM. Lungs: Diminished, distant breath sounds likely secondary to habitus, greater bases, proper effort, no appreciated rales, ronchi or wheezing. Heart: Regular rate and rhythm; no gallop, rub audible. Abdomen: Soft, morbidly obese, NTTP, distant BS, difficult to assess distention given habitus, abdominal groin fold significantly improved with resolved intertrigo. Extremities: No cyanosis, no clubbing, significant bilateral lower extremity swelling but significantly improved and now lessened distally, improved appearance as noted also of the scrotal and lower abdominal region with significantly less and edema Neurological: Patient awake, alert, oriented as noted, cognitive function intact; pupils equally reactive to light and accommodation, cranial nerves II- XII grossly normal, moving all 4 extremities, improved, strength moderately globally decreased secondary to acute presentation, patient eager for discharge. Psychiatric: Affect appears normal, no acute evidence of depressive or anxiety feelings. Assessment & Plan Assessment/Plan (1) Scrotal edema: PLAN: Plan The patient is a 52 y/o M w/ PMHx: Rheumatoid arthritis, Tobacco use, Morbid obesity, COPD w/ Chronic Hypoxic Respiratory Failure (4L NC), Anxiety and Depression, Hx VTE, HTN, HLD, GERD, Hypothyroidism, Hx Chanel's gangrene, Rheu matoid arthritis, BERT, Tobacco use, IBS, Diabetes mellitus type II with chronic neuropathy, CAD s/p PCI, Chronic anemia/Fe Deficiency anemia, recent ED evaluation 03/16/23 secondary to draining left buttock abscess as well as concern for right scrotal region as well with no abscess noted during ED visit discharge to home on continued outpatient oral Bactrim therapy with return 03/19/2023 for scrotal swelling with visiting nurse reported concern about possible yeast infection prompting referral to the ED discharged to home with continued outpatient oral antibiotics and recommended nystatin topical twice daily be increased to 4 times daily who now again represents to the [facility] ED on 03/26/23 with increasing peripheral edema as well as increased scrotal swelling and discomfort prompting ED reevaluation. #1. Significant lower extremity anasarca/Scrotal thickening concerning for possible concurrent cellulitis with admission concern Acute Diastolic CHF Exacerbation, multifactorial complicated by #2 and notable medication diuretic noncompliance: Work-up in the ED included T97.8, heart rate 87, BP 132/69, respiratory rate 26, 96% on 4L NC, CBC with WBC 13.7, Hgb 7.8, MCV 75.3, Plts 340 with left shift, BMP unremarkable, BNP 30.5, CXR w/ Cardiomegaly with central pulmonary vascular prominence, BL opacities in the lunds, R>L. In the ED patient ministered Lasix 40 mg IV x1 as well as [place] 1 tablet p.o. x1. Admitted to PCU, maintained on telemetry, continued IV bumex diuresis, monitor I/Os, continued medical therapy, TSH 0.21 but FT4 1.33 thus subclinical, mag 2.3. 03/25/2021 echocardiogram with normal LV size, normal LV systolic function, EF 65% thus repeated with ECHO with LVEF 65%, moderately enlarged LA, mildly enlarged RA, technically difficult with suboptimal images due to body habitus. Continue interventions for skin care and chronic wounds as noted #2. 03/27/23 Scrotal US w/ noted normal bilateral testicles, bilateral small hydroceles, extensive diffuse scrotal wall edema. 03/28/2023 improved appearance of the intertrigo but ongoing thickness and discomfort to the posterior aspect of the scrotum when palpated likely the region of wall edema on the ultrasound, discussed at length with patient and at this point will initiate IV vancomycin given MRSA history. 03/29/23 remained AF, stable VS, CBC w/ WBC 12.8, stable. Patient declined PT and OT assessments. Discussed discharge plan and he was amenable to returning to home on continue Bactrim and addition of Keflex based on prior culture history to complete antibiotic therapy. Also, discharged on increased lasix regimen with strongly encouraged appropriate medication compliance and planned repeat BMP with his PCP to review renal function given increase. Encouraged continuation strongly of usage of skin care in the folds and continue nystatin as well as scrotal elevation with planned follow-up with PCP well as urology information given upon discharge. #2. Chronic draining buttock abscesses as well as significant intertrigo: We will request wound RN consultation, pending Wound Cx and wound MRSA PCR to be cautious of continued drainage however recently completed Bactrim therapy, plan repeat CBC in AM, offloading as able, monitor erythema outline with VS checks, aggressive groin care and topical nystatin application, additionally will elevate scrotum with a pillow and wrap sheet between the 2 skin folds to assist following cleansing and gentle pat down with nystatin application. 03/27/23 Scrotal US w/ noted normal bilateral testicles, bilateral small hydroceles, extensive diffuse scrotal wall edema. As noted patient initiated on IV vancomycin to be cautious given thickening on imaging and still pain/discomfort. 03/29/23 remained AF, stable VS, CBC w/ WBC 12.8, stable. As noted above plan discharge today on antibiotic therapy with continued skin care as noted. #3. Right knee pain, unclear etiology: No clear specific trauma but from description on his way to the hospital may have bumped it, plain film of the right knee not marked appearing, patient requested knee brace which was given. Patient declined PT and OT assessments and eager for discharge to home. #4. Chronic normocytic anemia/iron deficiency anemia: Admission hemoglobin 7.8, MCV 75.3, more recent baseline since August 10 to , has certainly decreased since the year prior with baseline at that time primarily 10-12, 03/27/23 repeat Hgb 7.8->03/28/23 Hgb 8.3, iron 13, TIBC 339, iron saturation 3.8, ferritin 21 consistent with iron deficiency anemia with oral Fe supplementation started. 03/29/23 CBC w/ Hgb 8.2. Planned continued oral Fe at discharge. Also, aspatient with no BM during admission given anemia recommended outpatient PCP directed guiac to be cautious given notable antiplt/anticoagulation regimen. #5. Chronic COPD with chronic hypoxic respiratory failure (4L NC) and allergic rhinitis: Will maintain on home oxygen supplementation, continue ATC budesonide, PRN albuterol, HOB, IS parameters, continue patient home fluticasone regimen. #6. CAD: Status post PCI, will continue patient home baby aspirin, Brilinta, Pradaxa, metoprolol, losartan home regimen. #7. Diabetes mellitus type II with chronic neuropathy: Hold oral home regimen, hemoglobin A1c 6.4%, ADA diet, accu checks w/ ISS, continue patient home chronic gabapentin regimen. #8. Hypothyroidism: We will continue patient on levothyroxine regimen, TSH and free T4 requested. #9. Hypertension: Continue home regimen including metoprolol, losartan, temporally holding oral Lasix with IV bumex usage as noted, PRN hydralazine. #10. Hyperlipidemia: We will continue patient on statin therapy. #11. History of VTE: We will continue patient home Pradaxa regimen #12. Morbid Obesity: Weight loss and lifestyle changes encouraged. #13. Rheumatoid arthritis: Patient on chronic prednisone coupled with chronic oxycodone, will continue cautiously. #14. Tobacco Abuse: Encouraged cessation, inpatient consultation per RT, NR if desired. #15. DVT prophylaxis: Continue patient on Pradaxa regimen. #16. CODE status: Full Code. Charges/Coding Visit Charges Inpatient E&M: 36466 Subs Hosp L2
[2023-03-29 07:15] VITALS: O2SAT 93
[2023-03-29 10:05] VITALS: BP 129/63; PULSE 84; RESP 16; TEMP 36.2; O2SAT 92
[2023-03-29] MEDS: Bumetanide 1 MG/4 ML Vial IV (10:09)
[2023-03-29] MEDS: Nystatin Powder 15gm Bottle 1 APPLIC TOPICAL (10:09)
[2023-03-29] MEDS: predniSONE 10 MG Tablet PO (10:09)
[2023-03-29 10:10] VITALS: BP 129/63; PULSE 84
[2023-03-29] MEDS: Aspirin E.C. 81 MG Tablet PO (10:10)
[2023-03-29] MEDS: Dabigatran Etexilate Mesylate 150 MG Capsule PO (10:10)
[2023-03-29] MEDS: Metoprolol Tartrate 25 MG Tablet PO (10:10)
[2023-03-29] MEDS: Pantoprazole Sodium 20 MG Tablet PO (10:11)
[2023-03-29] MEDS: Ferrous Gluconate 324 MG Tablet PO (10:11)
[2023-03-29] MEDS: 0.9% Saline Lock 10 ML Syringe IV (10:12)
[2023-03-29 10:50] VITALS: O2SAT 95
--- NOTE | 2023-03-29 10:52 | DS.PCM_ITS ---
Providers Date of Admission: 03/26/23 Date of Discharge: 03/29/23 Primary Care Physician: Dr. 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 Significant lower extremity anasarca/Scrotal thickening concerning for possible concurrent cellulitis with admission concern Acute Diastolic CHF Exacerbation, multifactorial complicated by #2 and notable medication diuretic noncompliance #2. Chronic draining buttock abscesses as well as Active Acute significant intertrigo #3. Right knee pain, unclear etiology, no acute findings on plain film #4. Chronic normocytic anemia/iron deficiency anemia #5. Chronic COPD with chronic hypoxic respiratory failure (4L NC) and allergic rhinitis #6. CAD status post PCI. #7. Diabetes mellitus type II with chronic neuropathy #8. Hypothyroidism #9. Hypertension #10. Hyperlipidemia #11. History of VTE #12. Morbid Obesity #13. Rheumatoid arthritis #14. Tobacco Abuse #15. CODE status: Full Code. Medications at Discharge Home Medications diazepam 10 mg tablet (Valium) 10 mg PO 4X/DAY PRN Anxiety 03/03/16 albuterol sulfate 90 mcg/actuation aerosol inhaler (Ventolin HFA) 1 - 2 puff inhalation UD PRN Sob &/Or Wheezing 07/07/20 ascorbic acid (vitamin C) 500 mg capsule 500 mg PO DAILY SUPPLEMENT 07/07/20 gabapentin 100 mg capsule 100 mg PO QHS neuropathy 07/07/20 omeprazole 20 mg capsule,delayed release 20 mg PO BID ACID REFLUX 07/07/20 glipizide 2.5 mg tablet, extended release 24 hr 2.5 mg PO DAILY DIABETES 09/06/21 ammonium lactate 12 % topical cream 1 applic topical BID LEGS 08/16/22 aspirin 81 mg tablet,delayed release 81 mg PO DAILY HEART HEALTH 08/16/22 atorvastatin 40 mg tablet 40 mg PO QHS CHOLESTEROL 08/16/22 bumetanide 1 mg tablet 1 - 2 mg PO DAILY PRN FLUID 08/16/22 cholecalciferol (vitamin D3) 1,250 mcg (50,000 unit) capsule 1,250 mcg PO TH SUPPLEMENT 08/16/22 dabigatran etexilate 150 mg capsule (Pradaxa) 150 mg PO BID BLOOD THINNER 08/16/22 fluticasone propionate 50 mcg/actuation nasal spray,suspension 2 spray intrana francis DAILY PRN Nasal Congestion 08/16/22 levothyroxine 150 mcg tablet 300 mcg PO DAILY THYROID 08/16/22 losartan 25 mg tablet 25 mg PO BID BLOOD PRESSURE 08/16/22 metoprolol tartrate 25 mg tablet 25 mg PO BID BLOOD PRESSURE 08/16/22 miconazole nitrate 2 % topical cream 1 applic topical BID FUNGAL INFECTION 08/16/22 nicotine 21 mg/24 hr daily transdermal patch 1 patch transdermal DAILY NICOTINE WITHDRAWAL 08/16/22 nystatin 100,000 unit/gram topical powder (Nyamyc) 1 applic topical BID SKIN F OLDS 08/16/22 oxycodone 5 mg tablet 5 mg PO Q6H PRN Pain 08/16/22 prednisone 10 mg tablet 10 mg PO BID STEROID 08/16/22 ticagrelor 90 mg tablet (Brilinta) 90 mg PO BID BLOOD THINNER 08/16/22 fluconazole 200 mg tablet 200 mg PO DAILY FUNGAL INFECTION 03/26/23 sulfamethoxazole 800 mg-trimethoprim 160 mg tablet 1 tab PO BID INFECTION 03/26/23 cephalexin 500 mg capsule 500 mg PO TID 6 days #18 caps 03/29/23 ferrous gluconate 324 mg (37.5 mg iron) tablet 324 mg PO BID@1200,1700 30 days #60 tabs 03/29/23 furosemide 40 mg tablet (Lasix) 40 mg PO BID 30 days #60 tabs 03/29/23 Hospital Course Operations None Procedures 2-D Echocardiogram and EKG Summary of Care Provided Minutes Spent on Discharge: 35 Hospital Course: The patient is a 52 y/o M w/ PMHx: Rheumatoid arthritis, Tobacco use, Morbid obesity, COPD w/ Chronic Hypoxic Respiratory Failure (4L NC), Anxiety and Depression, Hx VTE, HTN, HLD, GERD, Hypothyroidism, Hx Chanel's gangrene, Rheumatoid arthritis, BERT, Tobacco use, IBS, Diabetes mellitus type II with chronic neuropathy, CAD s/p PCI, Chronic anemia/Fe Deficiency anemia, recent ED evaluation 03/16/23 secondary to draining left buttock abscess as well as concern for right scrotal region as well with no abscess noted during ED visit discharge to home on continued outpatient oral Bactrim therapy with return 03/19/2023 for scrotal swelling with visiting nurse reported concern about possible yeast infection prompting referral to the ED discharged to home with continued outpatient oral antibiotics and recommended nystatin topical twice daily be increased to 4 times daily who now again represented to the [facility] ED on 03/26/23 with increasing peripheral edema as well as increased scrotal swelling and discomfort prompting ED reevaluation. Work-up in the ED included T97.8, heart rate 87, BP 132/69, respiratory rate 26, 96% on 4L NC, CBC with WBC 13.7, Hgb 7.8, MCV 75.3, Plts 340 with left shift, BMP unremarkable, BNP 30.5, CXR w/ Cardiomegaly with central pulmonary vascular prominence, BL opacities in the lunds, R>L. In the ED patient ministered Lasix 40 mg IV x1 as well as [place] 1 tablet p.o. x1. Admitted to PCU, maintained on telemetry, continued IV bumex diuresis, monitor I/Os, continued medical therapy, TSH 0.21 but FT4 1.33 thus subclinical, mag 2.3. 03/25/2021 echocardiogram with normal LV size, normal LV systolic function, EF 65% thus repeated with ECHO with LVEF 65%, moderately enlarged LA, mildly enlarged RA, technically difficult with suboptimal images due to body habitus. Continue interventions for skin care and chronic wounds as noted #2. 03/27/23 Scrotal US w/ noted normal bilateral testicles, bilateral small hydroceles, extensive diffuse scrotal wall edema. 03/28/2023 improved appearance of the intertrigo but ongoing thickness and discomfort to the posterior aspect of the scrotum when palpated likely the region of wall edema on the ultrasound, discussed at length with patient and at this point will initiate IV vancomycin given MRSA history. 03/29/23 remained AF, stable VS, CBC w/ WBC 12.8, stable. Patient declined PT and OT assessments. Discussed discharge plan and he was amenable to returning to home on continue Bactrim and addition of Keflex based on prior culture history to complete antibiotic therapy. Also, discharged on increased lasix regimen with strongly encouraged appropriate medication compliance and planned repeat BMP with his PCP to review renal functi on given increase. Encouraged continuation strongly of usage of skin care in the folds and continue nystatin as well as scrotal elevation with planned follow-up with PCP well as urology information given upon discharge. Admission hemoglobin 7.8, MCV 75.3, more recent baseline since August 10 to , has certainly decreased since the year prior with baseline at that time primarily 10-12, 03/27/23 repeat Hgb 7.8->03/28/23 Hgb 8.3, iron 13, TIBC 339, iron saturation 3.8, ferritin 21 consistent with iron deficiency anemia with oral Fe supplementation started. 03/29/23 CBC w/ Hgb 8.2. Planned continued oral Fe at discharge. Also, aspatient with no BM during admission given anemia recommended outpatient PCP directed guiac to be cautious given notable antiplt/anticoagulation regimen. Weight / BMI Weight Weight: 471 lb 12.627 oz Body Mass Index (BMI) 62.5 ABG / Lab / Microbiology Data 03/29/23 05:18 03/29/23 05:18 Laboratory: Laboratory Results - last 24 hr 03/29/23 05:18: WBC 12.8 H, RBC 4.22 L, Hgb 8.2 L, Hct 32.6 L, MCV 77.3 L, MCH 19.4 L, MCHC 25.2 L, RDW Std Deviation 55.9 H, RDW Coeff of Kris 19.9 H, Plt Count 339, MPV 8.9, Immature Gran % (Auto) 0.400, Neut % (Auto) 73.0 H, Lymph % (Auto) 20.1, [place] % (Auto) 4.5, Eos % (Auto) 1.6, Baso % (Auto) 0.4, Absolute Neuts (auto) 9.3 H, Absolute Lymphs (auto) 2.56, Nucleated RBC % 0, Sodium 142, Potassium 3.9, Chloride 103, Carbon Dioxide 37.0 H, Anion Gap 2 L, BUN 16, Creatinine 0.90, Estim Creat Clear Calc 107.27, Est GFR (MDRD) Af Amer 113, Est GFR (MDRD) Non-Af 93, BUN/Creatinine Ratio 17.7, Glucose 106, Calcium 8.4 L, Total Bilirubin 0.50, AST 11 L, ALT 16, Alkaline Phosphatase 102, Total Protein 7.0, Albumin 2.5 L, Globulin 4.5 H, Albumin/Globulin Ratio 0.6 L Microbiology: Microbiology 03/27/23 14:50 Wound - Buttock Gram Stain - Final Radiography Diagnostic Testing: Radiology Impression Knee X-Ray 03/28/23 13:48 IMPRESSION: No acute bony injury. Electronically Signed: Percy Ambrocio MD at 17:51 EDT Reading Location ID and State: [facility] / [place] Tel , Service support , D/C Instructions Discharge Diet: Low fat / Low cholesterol and 2000 Calorie Control Diet May resume sexual activity in: - (Please have reassess by primary care until restart sexual activity.) Weight Bearing Status: Weight bearing as tolerated Call your doctor if you observe: Fever of 101 or Higher, Numbness or Tingling, Inability to urinate, Inability to have a bowel movement, Shortness of breath, Dizziness, Increased palpitations (irregular heartbeat), Calf discomfort, Uncont rolled pain and - (Recurrent scrotal swelling or increased recurrent redness, thickening painful skin.) Meaningful Use Info Meaningful Use Diagnoses (Choose all that apply): CHF CHF ARSLAN/ARB ordered at discharge?: Yes Documented LVEF (%): 65 Discharge Plan Admission Admit Date/Time: 03/26/23 14:53 Primary Reason for Your Visit: Anasarca, Scrotal edema w/ possible Cellulitis, Chronic wounds Attending Provider: Mary Roberson Primary Care Provider: Ida Norris Consulting Providers: Forrest Bruce Instructions Patient Instructions: Cellulitis, Abscess Drainage, ED Peripheral Edema, Bilateral Additional Instructions / Restrictions: ADDITIONAL INSTRUCTION: During the admission given significant lower extremity swelling particularly of the scrotal region you are diuresed with IV regimen and transition back to discharge to oral regimen which was increased to lasix 40 mg twice daily. Please continue to take this as if you do not she will have again recurrent swelling to the extremities and may have recurrent swelling to the scrotal region. Please continue the Bactrim that was initiated outpatient in addition to Keflex for possible scrotal skin cellulitis with repeat assessment by primary care physician outpatient. We also strongly recommend continued aggressive fold care for intertrigo and application of nystatin as initiated in the hospital. Continue to when seated or laying in bed to elevate the scrotal region with a pi llow and keep sheet underneath so there is no skin to skin contact until swelling and infection completely resolved. Given the hydroceles noted on ultrasound per your request we have also included a number to follow-up with urology outpatient. Also, please have follow-up basic metabolic panel to roseanne donniess renal function at primary care follow-up given recent lasix increase. During the admission you reported right knee discomforts and plain film of the knee was unremarkable, you may continue to use the brace for stability and may encourage continued outpatient follow-up and evaluation. During the admission you did have noted chronic anemia and iron panel was obtained with initiation of iron supplementation which has been continued at discharge. Given that you had no bowel movements we did not obtain a guaiac but this certainly could be performed outpatient with your primary care physician as you are on chronic antiplatelet and anticoagulation for no combination of chronic GI bleed component. Discharge Orders/Prescriptions Prescriptions: New ferrous gluconate 324 mg (37.5 mg iron) Tablet 324 mg PO BID@1200,1700 30 Days Qty: 60 0RF cephalexin 500 mg capsule 500 mg PO TID 6 Days Qty: 18 0RF furosemide [Lasix] 40 mg tablet 40 mg PO BID 30 Days Qty: 60 0RF Continued glipizide 2.5 mg tablet extended release 24hr 2.5 mg PO DAILY diazepam [Valium] 10 MG tablet 10 mg PO 4X/DAY PRN (Reason: Anxiety) omeprazole 20 MG capsule,delayed release(DR/EC) 20 mg PO BID gabapentin 100 MG capsule 100 mg PO QHS albuterol sulfate [Ventolin HFA] 1 INHALER inhaler 1 - 2 puff INHALATION UD PRN (Reason: Sob &/Or Wheezing) Rx Instructions: INHALE 1 TO 2 PUFFS BY MOUTH AND INTO THE LUNGS EVERY 4 TO 6 HOURS NEEDED ascorbic acid (vitamin C) 500 MG capsule 500 mg PO DAILY prednisone 10 mg Tablet 10 mg PO BID oxycodone 5 mg Tablet 5 mg PO Q6H PRN (Reason: Pain) Brilinta 90 mg Tablet 90 mg PO BID miconazole nitrate 2 % cream 1 applic TOPICAL BID Patient Comments: apply to affected area twice a day aspirin 81 mg tablet,delayed release (DR/EC) 81 mg PO DAILY levothyroxine 150 mcg tablet 300 mcg PO DAILY Patient Comments: take 2 tablets by mouth once daily nicotine 21 mg/24 hr patch 24 hour 1 patch transdermal DAILY bumetanide 1 mg tablet 1 - 2 mg PO DAILY PRN (Reason: FLUID) ammonium lactate 12 % cream 1 applic TOPICAL BID nystatin [Nyamyc] 100,000 unit/gram powder 1 applic TOPICAL BID Patient Comments: apply to affected area once daily to twice a day fluticasone propionate 50 mcg/actuation spray,suspension 2 spray INTRANASAL DAILY PRN (Reason: Nasal Congestion) Patient Comments: instill 2 sprays into each nostril once daily cholecalciferol (vitamin D3) 1,250 mcg (50,000 unit) capsule 1,250 mcg PO TH Patient Comments: take 1 capsule by mouth every week atorvastatin 40 mg tablet 40 mg PO QHS losartan 25 mg tablet 25 mg PO BID metoprolol tartrate 25 mg tablet 25 mg PO BID dabigatran etexilate [Pradaxa] 150 mg capsule 150 mg PO BID Rx Instructions: take 1 pill (150mg) in the morning then take 1 pill in the evening (150mg) for a total of 300mg. fluconazole 200 mg tablet 200 mg PO DAILY Patient Comments: take 1 tablet by mouth daily for 5 days then 1 tablet every week for 5 WEEKS STARTED 03/23/23 sulfamethoxazole-trimethoprim 800-160 mg tablet 1 tab PO BID Patient Comments: take 1 tablet by mouth twice a day Discontinued furosemide 20 mg tablet 40 mg PO DAILY furosemide 20 mg tablet 20 mg PO LUNCH Patient Comments: TAKES AT 1300 Referrals / Follow Up: George Gallagher MD [Med Staff - Active Staff] - (Follow-up next open visit for complaint hydrocele/scrotal swelling for evaluation.) Ida Norris DO [Primary Care Provider] - (Follow-up within 3-5 days to review admission.) Wound,Center [Non-Staff] - (You may also benefit following discussion with your primary care for follow-up at the wound care center if ongoing issues despite recent interventions with skin infections.) Disposition Disposition (needs filled in before D/C Order can be placed): Home Health Service Charges/Coding Visit Charges Inpatient E&M: 59541 Disch Hosp >30min
[2023-03-29 11:23] VITALS: O2SAT 92; O2SAT 95
== END 2023-03-29 14:56 | disposition home health service (06) | DRG 501 ==
LOC: ED 12:06 → PCU 15:28
PROVIDERS: Admitting Provider Hospitalist; Emergency Provider Emergency Medicine; PCP Family Medicine; Visit Provider Family Medicine
DX: N49.2 Inflammatory disorders of scrotum (principal); I50.31 Acute diastolic (congestive) heart failure; J96.11 Chronic respiratory failure with hypoxia; Z68.44 Body mass index [BMI] 60.0-69.9, adult; E11.40 Type 2 diabetes mellitus with diabetic neuropathy, unspecified; E03.9 Hypothyroidism, unspecified; D50.9 Iron deficiency anemia, unspecified; E78.5 Hyperlipidemia, unspecified; I11.0 Hypertensive heart disease with heart failure; J44.9 Chronic obstructive pulmonary disease, unspecified; E66.01 Morbid (severe) obesity due to excess calories; M06.9 Rheumatoid arthritis, unspecified; F17.200 Nicotine dependence, unspecified, uncomplicated; K21.9 Gastro-esophageal reflux disease without esophagitis; I25.10 Atherosclerotic heart disease of native coronary artery without angina pectoris; F41.9 Anxiety disorder, unspecified; L30.4 Erythema intertrigo; L02.31 Cutaneous abscess of buttock; Z79.02 Long term (current) use of antithrombotics/antiplatelets; Z95.5 Presence of coronary angioplasty implant and graft; Z79.82 Long term (current) use of aspirin; Z79.52 Long term (current) use of systemic steroids; Z79.84 Long term (current) use of oral hypoglycemic drugs; Z79.01 Long term (current) use of anticoagulants; Z99.81 Dependence on supplemental oxygen; Z91.148 Patient's other noncompliance with medication regimen for other reason; G89.29 Other chronic pain; Z79.890 Hormone replacement therapy; Z79.899 Other long term (current) drug therapy
CPT/HCPCS: 36415; 71046; 73562; 76870; 80048; 80053; 82728; 83036; 83540; 83550; 83735; 83880; 84439; 84443; 85025; 85027; 87070; 87205; 93005; 93306; 93976; 94640; 97162; 97166; 97530; 99284; J7040; Q9957; A4216; C8929; J1940

== ENCOUNTER 2023-06-16 22:23 | Emergency (ER) | payer MEDICAID, SELFPAY ==
[2023-06-16 22:23] VITALS: BP 141/70; PULSE 81; RESP 17; O2SAT 98
[2023-06-16 22:24] VITALS: PULSE 92; RESP 24; TEMP 36.7; O2SAT 98; BMI 58.6
--- NOTE | 2023-06-16 22:25 | EX.ED.DYSGE1 ---
HPI History of Present Illness Chief Complaint: Syncope [facility] Medical History Abscess of deep perineal space Anemia Anemia Anxiety Atherosclerotic heart disease of [place] coronary artery without angina pectoris Chest pain Chronic hypoxemic respiratory failure Chronic pain Chronic prescription benzodiazepine use Chronic steroid use Colon polyps COPD (chronic obstructive pulmonary disease) Depression DVT (deep venous thrombosis) Essential hypertension Family history of premature CAD GERD (gastroesophageal reflux disease) Goiter History of Chanel's gangrene HLD (hyperlipidemia) Hypothyroidism IBS (irritable bowel syndrome) Intertrigo Kidney stones Left against medical advice Non-healing surgical wound NSTEMI, initial episode of care On home oxygen therapy BERT (obstructive sleep apnea) Pain in scapula PTSD (post-traumatic stress disorder) Rheumatoid arthritis Sleep apnea Smoker Super obesity Superficial thrombophlebitis of leg Thrush Type 2 diabetes mellitus Ulcer of scrotum Home Medications diazepam 10 mg tablet (Valium) 10 mg PO 4X/DAY PRN Anxiety 03/03/16 [History Last Taken 08/15/22] albuterol sulfate 90 mcg/actuation aerosol inhaler (Ventolin HFA) 1 - 2 puff inhalation UD PRN Sob &/Or Wheezing 07/07/20 [History Last Taken 08/11/22] ascorbic acid (vitamin C) 500 mg capsule 500 mg PO DAILY SUPPLEMENT 07/07/20 [History Last Taken 03/26/23] gabapentin 100 mg capsule 100 mg PO QHS neuropathy 07/07/20 [History Last Taken 03/25/23] omeprazole 20 mg capsule,delayed release 20 mg PO BID ACID REFLUX 07/07/20 [History Last Taken 03/26/23] glipizide 2.5 mg tablet, extended release 24 hr 2.5 mg PO BID DIABETES 09/06/21 [History Last Taken 03/26/23] ammonium lactate 12 % topical cream 1 applic topical BID LEGS 08/16/22 [History Last Taken 03/26/23] aspirin 81 mg tablet,delayed release 81 mg PO DAILY HEART HEALTH 08/16/22 [History Last Taken 03/26/23] atorvastatin 40 mg tablet 40 mg PO QHS CHOLESTEROL 08/16/22 [History Last Taken 03/25/23] bumetanide 1 mg tablet 1 - 2 mg PO DAILY PRN FLUID 08/16/22 [History Last Taken Unknown] cholecalciferol (vitamin D3) 1,250 mcg (50,000 unit) capsule 1,250 mcg PO TH SUPPLEMENT 08/16/22 [History Last Taken 03/26/23] dabigatran etexilate 150 mg capsule (Pradaxa) 150 mg PO BID BLOOD THINNER 08/16/22 [History Last Taken 03/26/23] fluticasone propionate 50 mcg/actuation nasal spray,suspension 2 spray intranasal DAILY PRN Nasal Congestion 08/16/22 [History Last Taken Unknown] levothyroxine 150 mcg tablet 300 mcg PO DAILY THYROID 08/16/22 [History Last Taken 03/26/23] losartan 25 mg tablet 25 mg PO BID BLOOD PRESSURE 08/16/22 [History Last Taken 03/26/23] metoprolol tartrate 25 mg tablet 25 mg PO BID BLOOD PRESSURE 08/16/22 [History Last Taken 03/26/23] miconazole nitrate 2 % topical cream 1 applic topical BID FUNGAL INFECTION 08/16/22 [History Last Taken 03/26/23] nicotine 21 mg/24 hr daily transdermal patch 1 patch transdermal DAILY NICOTINE WITHDRAWAL 08/16/22 [History Last Taken 03/26/23] nystatin 100,000 unit/gram topical powder (Nyamyc) 1 applic topical BID SKIN FOLDS 08/16/22 [History Last Taken 03/26/23] oxycodone 5 mg tablet 5 mg PO Q6H PRN Pain 08/16/22 [History Last Taken Unknown] prednisone 10 mg tablet 10 mg PO BID STEROID 08/16/22 [History Last Taken 03/26/23] ticagrelor 90 mg tablet (Brilinta) 90 mg PO BID BLOOD THINNER 08/16/22 [History Last Taken 03/26/23] fluconazole 200 mg tablet 200 mg PO DAILY FUNGAL INFECTION 03/26/23 [History Last Taken 03/26/23] sulfamethoxazole 800 mg-trimethoprim 160 mg tablet 1 tab PO BID INFECTION 03/26/23 [History Last Taken 03/26/23] cephalexin 500 mg capsule 500 mg PO TID 6 days #18 caps 03/29/23 [Rx Last Taken Unknown] ferrous gluconate 324 mg (37.5 mg iron) tablet 324 mg PO BID@1200,1700 30 days #60 tabs 03/29/23 [Rx Last Taken Unknown] furosemide 40 mg tablet (Lasix) 40 mg PO BID 30 days #60 tabs 03/29/23 [Rx Last Taken Unknown] doxycycline hyclate 100 mg capsule 100 mg PO BID #14 caps 06/17/23 [Rx Last Taken Unknown] Allergy/AdvReac Type Severity Reaction Status Date / Time Penicillins Allergy Hives Verified 06/16/23 22:28 etanercept [From Enbrel] AdvReac Swelling Verified 06/16/23 22:28 rivaroxaban [From Xarelto] AdvReac Nausea Verified 06/16/23 22:28 warfarin sodium AdvReac Nausea Verified 06/16/23 22:28 [From Coumadin] Family History Other Cancer Heart disease Kidney disease Surgical History History of coronary artery stent placement (03/25/21) Social History household members: family Smoking Status: Heavy Smoker (>10/day) substance use type: does not use EXAM Physical Exam Const Vital Signs: 06/16/23 22:24 06/16/23 22:23 06/16/23 22:28 Temperature 98.0 F Temperature Source Oral Pulse Rate 92 81 Respiratory Rate 24 H 17 Respiratory Pattern Blood Pressure 141/70 H Blood Pressure Mean 93 Pulse Ox 98 98 98 Oxygen Delivery Method Nasal Cannula Nasal Cannula Nasal Cannula Oxygen Flow Rate (L/min) 4 4 4 06/16/23 22:28 06/17/23 00:23 06/17/23 01:30 Temperature Temperature Source Pulse Rate 78 79 Respiratory Rate 18 18 Respiratory Pattern Normal Blood Pressure 170/89 H 135/53 H Blood Pressure Mean 116 80 Pulse Ox 95 93 Oxygen Delivery Method Nasal Cannula Nasal Cannula Oxygen Flow Rate (L/min) 4 4 06/17/23 02:18 06/17/23 02:27 Temperature Temperature Source Pulse Rate 74 82 Respiratory Rate 18 18 Respiratory Pattern Blood Pressure 119/53 L 119/53 L Blood Pressure Mean 75 75 Pulse Ox 93 Oxygen Delivery Method Nasal Cannula Oxygen Flow Rate (L/min) 4 MDM MDM MDM Narrative Medical decision making narrative: HISTORY OF PRESENT ILLNESS: 52-year-old male here with concern for loss of consciousness. The patient noted he was walking to the kitchen to get a doughnut and he felt dizzy and passed out. Patient denies headache, chest pain, shortness of breath, abdominal pain, recent bleeding diathesis, recent illness. No family history of sudden cardiac . Denies any drug use. REVIEW OF SYSTEMS: Pertinent positives: Syncope Pertinent negatives: Headache, chest pain, abdominal pain, shortness of breath, bleeding diathesis PHYSICAL EXAM: Nursing triage notes reviewed, Vital signs reviewed Constitutional: please see mdm, obese HENT: MMM Eyes: Pupils equal round and reactive to light, Extraocular muscles intact Neck: No stridor, no JVD, full neck ROM Lungs: Clear to auscultation, No wheezing or rales. No increased work of breathing, no conversational dyspnea, no accessory muscle use, no nasal flaring. No respiratory distress noted Heart: Regular rate and rhythm, No murmurs, No rubs and No gallops, 2+ distal pulses (radial, femoral, posterior tibial) in all extremities Abdomen: Soft, there is no tenderness, rigidity, rebound or guarding, no obvious peritoneal signs, no palpable pulsatile abdominal masses, no auscultated abdominal bruit : No CVAT Extremities: No edema Neuro: No focal neurological deficits, cranial nerves II through XII intact, 5/5 strength in all extremities. Intact sensation to light touch in all extremities, 2+ reflexes bilateral patella tendons. No ataxia. Skin: No rash or lesions noted MEDICAL DECISION MAKING: Chief Complaint: syncope External records reviewed: Imaging reviewed: Echocardiogram from March 2023 shows ejection fraction 65% Factors affecting care: BERT, CAD, Chanel's gangrene, type 2 diabetes history of COPD (on 4 L baseline home O2), hyperlipidemia, hypothyroidism, Social determinants of health: Heavy smoker History obtained from others: EMS Consults: none [facility] Narrative: Was hemodynamically stable, afebrile, nontoxic-appearing. Without focal cardiopulmonary abnormalities. I considered the following differential diagnosis: Arrhythmia, electrolyte disturbance, anemia, dehydration, ACS ALL IMAGES (IF OBTAINED) HAVE BEEN PERSONALLY REVIEWED AND INTERPRETED BY MYSELF. EMS EKG with normal sinus rhythm, left axis deviation, no obvious STEMI, right bundle branch block EKG with normal sinus rhythm, left axis deviation, slightly prolonged QT, no obvious STEMI, right bundle branch block no obvious arrhythmia, no evidence of WPW, ARVD or [place]rug[place]. Similar to prior EKG from March 2023 High-sensitivity troponin is negative, no evidence of myocardial ischemia x2 CBC with leukocytosis suggestive of systemic inflammation, baseline anemia, no thrombocytopenia BMP without evidence of significant electrolyte abnormalities, no anion gap, no acute kidney injury. Chest x-ray by my read shows evidence of right-sided pneumonia. The synthesis of the patient's labs, images, telemetry monitoring showed no evidence of life-limiting anemia, ACS, significant anemia or electrolyte disturbances. No clear precipitation for the patient's syncope. It was found the patient have pneumonia. This could precipitate syncope in the setting of him having underlying COPD. However he is not hypoxic here he has home oxygen and is has no benefit of admission at this time we will try oral antibiotics. Gave strict return precautions. Shared decision-making discussion with the patient who agreed hospitalization would not benefit him at this time and he request to be discharged. The patient and/or family, caregivers express understanding. The patient and/or family, caregivers agrees with the plan. Shared decision making: I will have a discussion with the patient and or visitors regarding risk/benefits of further testing or admission. They will be made aware of of the risk/benefits inherent in this decision they will be given the opportunity to voice understanding. Total critical care time today provided was at least 0 minutes. This excludes separately billable procedures. Critical care time (if documented) is secondary to the patient having high probability of clinically significant/life threatening deterioration in the patient's condition which required my urgent intervention. Impression: 1. Syncope 2. Community-acquired pneumonia 3. Leukocytosis 4. Anemia 5. History of COPD Dispo: Discharge Lab Data Labs: Laboratory Results - last 24 hr 06/16/23 06/17/23 22:53 01:30 WBC 14.4 H RBC 4.28 L Hgb 8.6 L Hct 33.6 L MCV 78.5 L MCH 20.1 L MCHC 25.6 L RDW Std Deviation 55.9 H RDW Coeff of Kris 19.4 H Plt Count 319 MPV 8.5 Immature Gran % (Auto) 0.700 Neut % (Auto) 75.7 H Lymph % (Auto) 17.5 L [place] % (Auto) 5.0 Eos % (Auto) 0.8 Baso % (Auto) 0.3 Absolute Neuts (auto) 10.9 H Absolute Lymphs (auto) 2.53 Nucleated RBC % 0 Sodium 140 Potassium 3.9 Chloride 103 Carbon Dioxide 35.0 H Anion Gap 2 L BUN 18 Creatinine 1.08 Estim Creat Clear Calc 89.39 Est GFR (MDRD) Af Amer 92 Est GFR (MDRD) Non-Af 76 BUN/Creatinine Ratio 16.7 Glucose 112 H Calcium 8.3 L Troponin I High Sens 16 22 Radiography Diagnostic Testing: Clinical Impression(s) from Imaging Studies Chest X-Ray 06/16/23 22:55 IMPRESSION: Patchy bilateral airspace disease and small pleural effusions. Findings may indicate pneumonia. Electronically Signed: Jered Babcock MD at 23:24 EST , Discharge Plan Triage Chief Complaint: Syncope ED Provider: Jose Epstein Dx/Rx/DC Orders Instructions: ED Pneumonia (Adult), ED Fainting, Uncertain Cause Prescriptions: New doxycycline hyclate 100 mg capsule 100 mg PO BID Qty: 14 0RF No Action glipizide 2.5 mg tablet extended release 24hr 2.5 mg PO BID diazepam [Valium] 10 MG tablet 10 mg PO 4X/DAY PRN (Reason: Anxiety) omeprazole 20 MG capsule,delayed release(DR/EC) 20 mg PO BID gabapentin 100 MG capsule 100 mg PO QHS albuterol sulfate [Ventolin HFA] 1 INHALER inhaler 1 - 2 puff INHALATION UD PRN (Reason: Sob &/Or Wheezing) Rx Instructions: INHALE 1 TO 2 PUFFS BY MOUTH AND INTO THE LUNGS EVERY 4 TO 6 HOURS NEEDED ascorbic acid (vitamin C) 500 MG capsule 500 mg PO DAILY prednisone 10 mg Tablet 10 mg PO BID oxycodone 5 mg Tablet 5 mg PO Q6H PRN (Reason: Pain) Brilinta 90 mg Tablet 90 mg PO BID miconazole nitrate 2 % cream 1 applic TOPICAL BID Patient Comments: apply to affected area twice a day aspirin 81 mg tablet,delayed release (DR/EC) 81 mg PO DAILY levothyroxine 150 mcg tablet 300 mcg PO DAILY Patient Comments: take 2 tablets by mouth once daily nicotine 21 mg/24 hr patch 24 hour 1 patch transdermal DAILY bumetanide 1 mg tablet 1 - 2 mg PO DAILY PRN (Reason: FLUID) ammonium lactate 12 % cream 1 applic TOPICAL BID nystatin [Nyamyc] 100,000 unit/gram powder 1 applic TOPICAL BID Patient Comments: apply to affected area once daily to twice a day fluticasone propionate 50 mcg/actuation spray,suspension 2 spray INTRANASAL DAILY PRN (Reason: Nasal Congestion) Patient Comments: instill 2 sprays into each nostril once daily cholecalciferol (vitamin D3) 1,250 mcg (50,000 unit) capsule 1,250 mcg PO TH Patient Comments: take 1 capsule by mouth every week atorvastatin 40 mg tablet 40 mg PO QHS losartan 25 mg tablet 25 mg PO BID metoprolol tartrate 25 mg tablet 25 mg PO BID dabigatran etexilate [Pradaxa] 150 mg capsule 150 mg PO BID Rx Instructions: take 1 pill (150mg) in the morning then take 1 pill in the evening (150mg) for a total of 300mg. fluconazole 200 mg tablet 200 mg PO DAILY Patient Comments: take 1 tablet by mouth daily for 5 days then 1 tablet every week for 5 WEEKS STARTED 03/23/23 sulfamethoxazole-trimethoprim 800-160 mg tablet 1 tab PO BID Patient Comments: take 1 tablet by mouth twice a day ferrous gluconate 324 mg (37.5 mg iron) Tablet 324 mg PO BID@1200,1700 30 Days Qty: 60 0RF cephalexin 500 mg capsule 500 mg PO TID 6 Days Qty: 18 0RF furosemide [Lasix] 40 mg tablet 40 mg PO BID 30 Days Qty: 60 0RF Stand Alone Forms: ED Work / School Excuse Primary Care Provider: Ida Norris Referrals: Ida Norris DO [Primary Care Provider] - Activity Restrictions/Additional Instructions: Thank you for trusting us with your care today! Please take Tylenol (2 pills, 650 mg), ibuprofen (2 pills, 400 mg) every 6 hours as needed for pain and fever control. Please take all antibiotics until course complete. Please return to the emergency department if your symptoms change or worsen. Please follow with your primary care physician for further outpatient evaluation and management. Disposition Disposition: Home, Self Care Discharge Date/Time: 06/17/23 02:39
[2023-06-16 22:28] VITALS: O2SAT 98
--- NOTE | 2023-06-16 22:28 | EKG12_ITS ---
Test Reason : DYSRHYTHMIA Blood Pressure : / mmHG Vent. Rate : 084 BPM Atrial Rate : 084 BPM P-R Int : 186 ms QRS Dur : 142 ms QT Int : 390 ms P-R-T Axes : 056 -54 040 degrees QTc Int : 460 ms Normal sinus rhythm Right bundle branch block Left anterior fascicular block Bifascicular block Abnormal ECG Confirmed by GODWIN MEZA, EDWARDO ([id number]), newspaper or periodical editor ALF RUCKER ([id number]) on 06/24/2023 10:44:42 AM Referred By: SUNITHA Confirmed By:EDWARDO CONNELLY MD
--- NOTE | 2023-06-16 22:55 | RAD_ITS ---
EXAM: XR CHEST, 1 VIEW CLINICAL INDICATION: chest pain TECHNIQUE: Frontal view of the chest. COMPARISON: Two-view chest 03/26/2023 FINDINGS: LUNGS AND PLEURAL SPACES: Patchy bilateral airspace disease and small pleural effusions. No pneumothorax. HEART: Unremarkable. Cardiac silhouette not enlarged. MEDIASTINUM: Central airways and mediastinal contour are unremarkable. BONES/JOINTS: Unremarkable. SOFT TISSUES: Unremarkable. RAD/Chest 1 View (Portable) IMPRESSION: Patchy bilateral airspace disease and small pleural effusions. Findings may indicate pneumonia. Electronically Signed: Jered Babcock MD at 23:24 EST ,
[2023-06-16 22:59] LABS: Absolute Lymphocyte Count 2.53 X10^3/uL (0.83-4.51); Absolute Neutrophil Count 10.9 X10^3/uL (2.0-7.7); Basophil# 0.04 X10^3/uL; Basophil% 0.3 % (0-1); Eosinophil# 0.12 X10^3/uL; Eosinophils% 0.8 % (0-5); Hematocrit 33.6 % (40-54); Hemoglobin 8.6 g/dL (13.0-16.5); Lymphocyte # 2.53 X10^3/ul (0.83-4.51); Lymphocyte % 17.5 % (19-41); Mean Corp Hgb Conc 25.6 g/dL (32-36); Mean Corpuscular Hgb 20.1 pg (27.0-32.0); Mean Corpuscular Volume 78.5 fL (80-94); Mean Platelet Vol. 8.5 fl (6.2-12.0); Monocyte# 0.72 X10^3/uL; NRBC Flagged by Analyzer 0 % (0-5); Neutrophil # 10.91 X10^3/uL (2.7-7.7); Neutrophil % 75.7 % (47-70); Platelet Count 319 K/mm3 (150-450); RBC Distribution Width CV 19.4 % (11.6-14.6); RBC Distribution Width SD 55.9 fl (35.1-43.9); Red Blood Count 4.28 M/mm3 (4.6-6.2); White Blood Count 14.4 K/mm3 (4.4-11.0)
[2023-06-16 23:21] LABS: Anion Gap 2 (5-15); BUN 18 mg/dL (7-18); BUN/Creat Ratio 16.7 RATIO (10-20); Calcium,Total 8.3 mg/dL (8.5-10.1); Chloride 103 mmol/L (98-107); Creatinine, Serum 1.08 mg/dL (0.70-1.30); EST Glomerular Filtration Rate 76 mL/min (>60); Est Glom Filt Rate - Afr Amer 92 mL/min (>60); Estimated Creatinine Clearance 89.39 ml/min; Glucose 112 mg/dL (74-106); Potassium 3.9 mmol/L (3.5-5.1); Sodium Level 140 mmol/L (136-145); Troponin-I HS (w/2H Reflex) 16 pg/mL (3.0-78.0)
[2023-06-17 00:23] VITALS: BP 170/89; PULSE 78; RESP 18; O2SAT 95
[2023-06-17 00:57] LABS: Reflex Troponin-HS? (from REC) Y
[2023-06-17 01:30] VITALS: BP 135/53; PULSE 79; RESP 18; O2SAT 93
[2023-06-17 01:56] LABS: Troponin-I HS 22 pg/mL (3.0-78.0)
[2023-06-17 02:18] VITALS: BP 119/53; PULSE 74; RESP 18; O2SAT 93
[2023-06-17] MEDS: Doxycycline 100 MG CAPSULE PO (02:26)
[2023-06-17 02:27] VITALS: BP 119/53; PULSE 82; RESP 18
== END 2023-06-17 02:39 | disposition home or self-care (01) ==
PROVIDERS: Emergency Provider Emergency Medicine; PCP Family Medicine; Visit Provider Emergency Medicine
DX: R55 Syncope and collapse (principal); J44.0 Chronic obstructive pulmonary disease with (acute) lower respiratory infection; E11.9 Type 2 diabetes mellitus without complications; J18.9 Pneumonia, unspecified organism; D64.9 Anemia, unspecified; F17.200 Nicotine dependence, unspecified, uncomplicated; E03.9 Hypothyroidism, unspecified; N49.3 Fournier gangrene; I25.10 Atherosclerotic heart disease of native coronary artery without angina pectoris; D72.829 Elevated white blood cell count, unspecified; I10 Essential (primary) hypertension; E78.5 Hyperlipidemia, unspecified
CPT/HCPCS: 71045; 80048; 84484; 85025; 93005; 99285; A4216

== ENCOUNTER 2023-06-27 21:43 | Emergency (ER) | payer MEDICAID, SELFPAY ==
[2023-06-27] VITALS (8 sets, daily range): BP systolic 97–124; BP diastolic 31–82; PULSE 32–56; RESP 14–21; TEMP 36.5; O2SAT 96–98; BMI 57.3
--- NOTE | 2023-06-27 22:05 | EKG12_ITS ---
Test Reason : DORIAN Blood Pressure : / mmHG Vent. Rate : 034 BPM Atrial Rate : 000 BPM P-R Int : 000 ms QRS Dur : 178 ms QT Int : 554 ms P-R-T Axes : 000 170 -05 degrees QTc Int : 416 ms Critical Test Result: Low HR , Arrhythmia Idioventricular rhythm Right bundle branch block Left posterior fascicular block Bifascicular block Abnormal ECG Confirmed by GODWIN MEZA, EDWARDO ([id number]), medical editor ALF RUCKER ([id number]) on 06/29/2023 12:11:21 PM Referred By: MARIAH Confirmed By:EDWARDO CONNELLY MD
--- NOTE | 2023-06-27 22:07 | EX.ED.DYSGE1 ---
HPI History of Present Illness Chief Complaint: Fall Informant: patient and EMS Narrative Narrative: Patient had a syncopal episode, resulting in a fall down 4 or 5 steps and injury to his left rib cage. He has no pain or injury elsewhere. Patient states he was at his grandparents. Is really hot inside their home, he states he had a bowel movement and was really straining, and afterwards he directly went outside with the intent on smoking but as soon as he got outside he started feeling lightheaded to the point where he passed out and fell down the steps. He was able to get up when he woke up and stand and walk without difficulty. He does not have a headache or feel like he hit his head at all. He states he has had episodes of dizziness at times but cannot recall details. Did not pass out like he did tonight. EMS noted that his heart rate was in the 30s. They gave him atropine and his heart rate increased to the 50s and route. Other than soreness in his left rib cage, the patient has no other symptoms right now and does not feel lightheaded while resting/lying. He denies any prodromal symptoms other than lightheadedness. He has had no prodromal symptoms with his other lightheadedness episodes as well. Other than decreasing his dose of levothyroxine, he has had no other changes to his medications lately but does note that his pharmacy changed, so about 1 week ago, he started his new metoprolol prescription and the pills looked different, indicating to him that they come from a different divisional merchandising manager. Patient states he has chronic lymphedema in his legs, he takes Lasix a couple times a day, and states he always sort of feels dehydrated. He states he also was here in the ER couple weeks ago and diagnosed with pneumonia, there was some delay in getting the antibiotic but he is still on it and feeling better. [facility] Medical History Abscess of deep perineal space Anemia Anemia Anxiety Atherosclerotic heart disease of [place] coronary artery without angina pectoris Chest pain Chronic hypoxemic respiratory failure Chronic pain Chronic prescription benzodiazepine use Chronic steroid use Colon polyps COPD (chronic obstructive pulmonary disease) Depression DVT (deep venous thrombosis) Essential hypertension Family history of premature CAD GERD (gastroesophageal reflux disease) Goiter History of Chanel's gangrene HLD (hyperlipidemia) Hypothyroidism IBS (irritable bowel syndrome) Intertrigo Kidney stones Left against medical advice Non-healing surgical wound NSTEMI, initial episode of care On home oxygen therapy BERT (obstructive sleep apnea) Pain in scapula PTSD (post-traumatic stress disorder) Rheumatoid arthritis Sleep apnea Smoker Super obesity Superficial thrombophlebitis of leg Thrush Type 2 diabetes mellitus Ulcer of scrotum Home Medications diazepam 10 mg tablet (Valium) 10 mg PO 4X/DAY PRN Anxiety 03/03/16 [History Last Taken 08/15/22] albuterol sulfate 90 mcg/actuation aerosol inhaler (Ventolin HFA) 1 - 2 puff inhalation UD PRN Sob &/Or Wheezing 07/07/20 [History Last Taken 08/11/22] ascorbic acid (vitamin C) 500 mg capsule 500 mg PO DAILY SUPPLEMENT 07/07/20 [History Last Taken 03/26/23] gabapentin 100 mg capsule 100 mg PO QHS PRN neuropathy 07/07/20 [History Last Taken 03/25/23] omeprazole 20 mg capsule,delayed release 20 mg PO BID ACID REFLUX 07/07/20 [History Last Taken 03/26/23] glipizide 2.5 mg tablet, extended release 24 hr 2.5 mg PO BID DIABETES 09/06/21 [History Last Taken 03/26/23] ammonium lactate 12 % topical cream 1 applic topical BID LEGS 08/16/22 [History Last Taken 03/26/23] aspirin 81 mg tablet,delayed release 81 mg PO DAILY HEART HEALTH 08/16/22 [History Last Taken 03/26/23] atorvastatin 40 mg tablet 40 mg PO QHS CHOLESTEROL 08/16/22 [History Last Taken 03/25/23] bumetanide 1 mg tablet 1 - 2 mg PO DAILY PRN FLUID 08/16/22 [History Last Taken Unknown] dabigatran etexilate 150 mg capsule (Pradaxa) 150 mg PO BID BLOOD THINNER 08/16/22 [History Last Taken 03/26/23] fluticasone propionate 50 mcg/actuation nasal spray,suspension 2 spray intranasal DAILY PRN Nasal Congestion 08/16/22 [History Last Taken Unknown] levothyroxine 150 mcg tablet 150 mcg PO DAILY THYROID 08/16/22 [History Last Taken 03/26/23] losartan 25 mg tablet 25 mg PO BID BLOOD PRESSURE 08/16/22 [History Last Taken 03/26/23] metoprolol tartrate 25 mg tablet 25 mg PO BID BLOOD PRESSURE 08/16/22 [History Last Taken 03/26/23] miconazole nitrate 2 % topical cream 1 applic topical BID FUNGAL INFECTION 08/16/22 [History Last Taken 03/26/23] nystatin 100,000 unit/gram topical powder (Nyamyc) 1 applic topical BID SKIN FOLDS 08/16/22 [History Last Taken 03/26/23] prednisone 10 mg tablet 10 mg PO BID STEROID 08/16/22 [History Last Taken 03/26/23] ticagrelor 90 mg tablet (Brilinta) 90 mg PO BID BLOOD THINNER 08/16/22 [History Last Taken 03/26/23] sulfamethoxazole 800 mg-trimethoprim 160 mg tablet 1 tab PO BID INFECTION 03/26/23 [History Last Taken 03/26/23] doxycycline hyclate 100 mg capsule 100 mg PO BID #14 caps 06/17/23 [Rx Last Taken Unknown] furosemide 20 mg tablet 20 mg PO LUNCH 06/27/23 [History Last Taken Unknown] furosemide 40 mg tablet (Lasix) 40 mg PO DAILY 06/27/23 [History Last Taken Unknown] levothyroxine 88 mcg tablet 88 mcg PO DAILY 06/27/23 [History Last Taken Unknown] Allergy/AdvReac Type Severity Reaction Status Date / Time Penicillins Allergy Hives Verified 06/16/23 22:28 etanercept [From Enbrel] AdvReac Swelling Verified 06/16/23 22:28 rivaroxaban [From Xarelto] AdvReac Nausea Verified 06/16/23 22:28 warfarin sodium AdvReac Nausea Verified 06/16/23 22:28 [From Coumadin] Family History Other Cancer Heart disease Kidney disease Surgical History History of coronary artery stent placement (03/25/21) Social History household members: family Smoking Status: Heavy Smoker (>10/day) substance use type: does not use ROS ROS ED Constitutional Constitutional ED: Denies chills or fever(s) Eyes Eyes: Denies change in vision or diplopia ENT ENT ED: Denies rhinorrhea or sore throat Cardiovascular Cardiovascular: Reports lightheadedness, pedal edema, syncope and other Details: Left rib cage pain ; Denies chest pain, flutter in chest or palpitations Respiratory/Chest Respiratory/Chest: Denies cough or dyspnea Gastrointestinal Gastrointestinal: Denies abdominal pain, diarrhea, nausea or vomiting Genitourinary Genitourinary ED: Denies dysuria or hematuria Musculoskeletal Musculoskeletal: Denies back pain or neck pain Integumentary Reports Abrasions; Denies abscess or rash Neurologic Neurologic: Denies headache(s), paresthesias or weakness Psychiatric Psychiatric: Denies anxiety or suicidal thoughts EXAM Physical Exam Const Vital Signs: 06/27/23 21:44 06/27/23 21:57 06/27/23 22:03 Temperature 97.7 F L Temperature Source Oral Pulse Rate 35 L 47 L Respiratory Rate 14 15 Respiratory Effort Normal Non-Labored Respiratory Depth Normal Respiratory Pattern Normal Blood Pressure 118/67 117/31 L Blood Pressure Mean 84 59 Pulse Ox 98 96 96 Oxygen Delivery Method Nasal Cannula Nasal Cannula Nasal Cannula Oxygen Flow Rate (L/min) 4 4 4 06/27/23 22:11 06/27/23 22:19 06/27/23 22:48 Temperature Temperature Source Pulse Rate 56 L 32 L Respiratory Rate 15 18 Respiratory Effort Respiratory Depth Respiratory Pattern Blood Pressure 116/55 L 108/49 L Blood Pressure Mean 75 68 Pulse Ox 96 96 98 Oxygen Delivery Method Nasal Cannula Nasal Cannula Nasal Cannula Oxygen Flow Rate (L/min) 4 4 06/27/23 23:08 06/27/23 23:31 Temperature Temperature Source Pulse Rate 40 L 37 L Respiratory Rate 21 H 16 Respiratory Effort Respiratory Depth Respiratory Pattern Blood Pressure 97/82 H 124/31 H Blood Pressure Mean 87 62 Pulse Ox 96 97 Oxygen Delivery Method Nasal Cannula Nasal Cannula Oxygen Flow Rate (L/min) 4 4 Positive well nourished, well developed and obese General Appearance ED: well developed and NAD Nutritional Appearance: obese HEENT Reports moist mucous membranes normocephalic and atraumatic Eyes PERRL and EOMs intact bilaterally Neck full ROM and supple Chest Wall inspection of chest normal Chest Narrative: Left side anterolateral lower rib cage tenderness without crepitance or subcutaneous emphysema. No flail but exam limited by morbid obesity. Resp normal respiratory effort and clear to auscultation bilaterally Resp Narrative: Equal breath sounds bilaterally Cardio regular rate and regular rhythm Cardio Narrative: Very faint heart sounds Rate: bradycardia GI non-tender and non-distended Auscultation: normoactive bowel sounds Palpation: soft Back/Spine no CVA tenderness General Back: other FROM Extremity normal to inspection Extremity Narrative: Abrasion anterior right knee without bony tenderness or limited range of motion. Extensor mechanism intact. All ligaments stable short endpoints. General Extremety ED: Yes edema; Negative for pulses abnormal or tenderness General Extremity: edema bilateral lower extremity Details: moderate (Symmetric bilateral edema with chronic stasis dermatitis); Negative for pulses abnormal Neuro oriented x3, CN's II-XII intact bilaterally and no sensory deficits noted Sensorium / Orientation: awake and alert Motor Exam: strength 5/5 throughout Psych mental status grossly normal Skin no rashes or lesions noted and no wounds Skin Narrative: Abrasion right knee otherwise no signs of trauma MDM MDM MDM Narrative Medical decision making narrative: Initial EKG was difficult to tell if patient was in complete heart block or just a high degree AV block not conducting most beats. I got an extended rhythm strip, which shows that this is most likely complete heart block. Discussed with cardiology, we do not have the capability of doing pacemakers within the next couple days, so the patient will require transfer. His initial blood pressure was low dose of 500 cc of isotonic saline was ordered, blood pressure remained stable 116/55 or close to that, his bradycardia intermittently from the 30s to the 50s, and even when he was slow, lying at rest he is tolerating it well so no further intervention was needed although we kept pacer pads on him and hardware nearby. Reviewing patient's medication list since he did not know his medications well, metoprolol 25 mg twice daily is his only AV silvia tejinder and unlikely to be causing this at that dose especially. With regards to his left rib cage injury, 4 view x-ray series of my interpretation including the PA chest negative for fracture or pneumothorax. There are chronic nodular abnormalities which are unchanged compared with the prior. These x-rays are very limited due to his morbid obesity. He was in severe pain so we still gave him morphine for this, which helped. Other than SARAH, with his baseline creatinine being at or below 1.0, chronic anemia, mild leukocytosis likely due to demargination from stress, his labs are stable and unremarkable. Patient remained stable with minimal symptoms here, little lightheadedness but maintained good blood pressure. Last pressure 124 systolic. Patient wants to stay close and go to [facility] if possible, discussed with Олег, excepted by cardiology Dr. Quevedo, will transfer by ground. History & Record Review Additional record(s) reviewed:: Prior outpatient record (Cardiology visit 2021) Lab Data Attestation: I reviewed the patient's lab results. Labs: Laboratory Results - last 24 hr 06/27/23 22:15 WBC 17.1 H RBC 4.43 L Hgb 8.9 L Hct 34.5 L MCV 77.9 L MCH 20.1 L MCHC 25.8 L RDW Std Deviation 52.8 H RDW Coeff of Kris 18.8 H Plt Count 318 MPV 8.8 Immature Gran % (Auto) 0.900 Neut % (Auto) 69.9 Lymph % (Auto) 22.4 [place] % (Auto) 5.6 Eos % (Auto) 0.8 Baso % (Auto) 0.4 Absolute Neuts (auto) 12.0 H Absolute Lymphs (auto) 3.83 Nucleated RBC % 0 Sodium 138 Potassium 3.5 Chloride 103 Carbon Dioxide 32.0 Anion Gap 3 L BUN 26 H Creatinine 2.00 H Estim Creat Clear Calc 48.27 Est GFR (MDRD) Af Amer 45 L Est GFR (MDRD) Non-Af 37 L BUN/Creatinine Ratio 13.0 Glucose 194 H Calcium 8.3 L Troponin I High Sens 60 Radiography Diagnostic Testing: Clinical Impression(s) from Imaging Studies Ribs w/Chest X-Ray 06/27/23 22:35 IMPRESSION: Findings similar to prior chest radiograph. No obvious acute left-sided rib fracture. Electronically Signed: Jens Bowens MD at 23:13 EST , Rhythm Strip Rhythm Strip: Bradycardia Rate: 36 Ectopy: None EKG Initial EKG: Attestation: I personally reviewed and interpreted this EKG as follows: Interpretation: AV Block (Complete with ventricular escape rhythm at 32) Management Discussion w/another healthcare provider: Senior Pastor (Richard cardiology; Emy cardiology Олег [facility]) Critical Care Time Critical Care Time: Yes Critical care time (excluding procedures): 30-74 minutes (36 min), Including time spent:, Discussing w/Patient &/or Family/Scoring Machine Operator, Discussing w/Consultants, Arranging Admission or Transfer and Performing Direct Patient Care at Bedside Discharge Plan Triage Chief Complaint: Fall ED Provider: Natan Villar Dx/Rx/DC Orders Clinical Impression: Fall down steps, Complete heart block, Syncope and collapse, SARAH (acute kidney injury), Anticoagulated, Contusion of left chest wall Prescriptions: No Action glipizide 2.5 mg tablet extended release 24hr 2.5 mg PO BID diazepam [Valium] 10 MG tablet 10 mg PO 4X/DAY PRN (Reason: Anxiety) omeprazole 20 MG capsule,delayed release(DR/EC) 20 mg PO BID gabapentin 100 MG capsule 100 mg PO QHS PRN (Reason: neuropathy) albuterol sulfate [Ventolin HFA] 1 INHALER inhaler 1 - 2 puff INHALATION UD PRN (Reason: Sob &/Or Wheezing) Rx Instructions: INHALE 1 TO 2 PUFFS BY MOUTH AND INTO THE LUNGS EVERY 4 TO 6 HOURS NEEDED ascorbic acid (vitamin C) 500 MG capsule 500 mg PO DAILY prednisone 10 mg Tablet 10 mg PO BID Brilinta 90 mg Tablet 90 mg PO BID miconazole nitrate 2 % cream 1 applic TOPICAL BID Patient Comments: apply to affected area twice a day aspirin 81 mg tablet,delayed release (DR/EC) 81 mg PO DAILY levothyroxine 150 mcg tablet 150 mcg PO DAILY Patient Comments: take 2 tablets by mouth once daily bumetanide 1 mg tablet 1 - 2 mg PO DAILY PRN (Reason: FLUID) ammonium lactate 12 % cream 1 applic TOPICAL BID nystatin [Nyamyc] 100,000 unit/gram powder 1 applic TOPICAL BID Patient Comments: apply to affected area once daily to twice a day fluticasone propionate 50 mcg/actuation spray,suspension 2 spray INTRANASAL DAILY PRN (Reason: Nasal Congestion) Patient Comments: instill 2 sprays into each nostril once daily atorvastatin 40 mg tablet 40 mg PO QHS losartan 25 mg tablet 25 mg PO BID metoprolol tartrate 25 mg tablet 25 mg PO BID dabigatran etexilate [Pradaxa] 150 mg capsule 150 mg PO BID Rx Instructions: take 1 pill (150mg) in the morning then take 1 pill in the evening (150mg) for a total of 300mg. sulfamethoxazole-trimethoprim 800-160 mg tablet 1 tab PO BID Patient Comments: take 1 tablet by mouth twice a day levothyroxine 88 mcg tablet 88 mcg PO DAILY Rx Instructions: take with 150mg tab furosemide 20 mg tablet 20 mg PO LUNCH Patient Comments: 40mg in am and 20 in afternoon. furosemide [Lasix] 40 mg tablet 40 mg PO DAILY doxycycline hyclate 100 mg capsule 100 mg PO BID Qty: 14 0RF Primary Care Provider: Ida Norris Referrals: Ida Norris DO [Primary Care Provider] - Disposition Disposition: Acute Care Hospital Discharge Location: [facility]
--- NOTE | 2023-06-27 22:15 | EKG12_ITS ---
Test Reason : DORIAN Blood Pressure : / mmHG Vent. Rate : 032 BPM Atrial Rate : 000 BPM P-R Int : 000 ms QRS Dur : 186 ms QT Int : 558 ms P-R-T Axes : 000 169 -05 degrees QTc Int : 407 ms Critical Test Result: Low HR , Arrhythmia Idioventricular rhythm Right bundle branch block Left posterior fascicular block Bifascicular block Abnormal ECG Confirmed by GODWIN MEZA, EDWARDO ([id number]), continuity editor ALF RUCKER ([id number]) on 06/29/2023 12:09:58 PM Referred By: BB Confirmed By:EDWARDO CONNELLY MD
[2023-06-27] MEDS: 0.9% Normal Saline (500mL Bag) 500 ML 999 ML IV (22:16)
[2023-06-27 22:23] LABS: Absolute Lymphocyte Count 3.83 X10^3/uL (0.83-4.51); Basophil# 0.07 X10^3/uL; Basophil% 0.4 % (0-1); Eosinophil# 0.14 X10^3/uL; Eosinophils% 0.8 % (0-5); Hematocrit 34.5 % (40-54); Hemoglobin 8.9 g/dL (13.0-16.5); Lymphocyte # 3.83 X10^3/ul (0.83-4.51); Lymphocyte % 22.4 % (19-41); Mean Corp Hgb Conc 25.8 g/dL (32-36); Mean Corpuscular Hgb 20.1 pg (27.0-32.0); Mean Corpuscular Volume 77.9 fL (80-94); Mean Platelet Vol. 8.8 fl (6.2-12.0); Monocyte# 0.95 X10^3/uL; Monocyte% 5.6 % (0-10); NRBC Flagged by Analyzer 0 % (0-5); Neutrophil # 11.96 X10^3/uL (2.7-7.7); Neutrophil % 69.9 % (47-70); Platelet Count 318 K/mm3 (150-450); RBC Distribution Width CV 18.8 % (11.6-14.6); RBC Distribution Width SD 52.8 fl (35.1-43.9); Red Blood Count 4.43 M/mm3 (4.6-6.2); White Blood Count 17.1 K/mm3 (4.4-11.0)
--- NOTE | 2023-06-27 22:35 | RAD_ITS ---
INDICATION: fall/trauma/pain EXAMINATION/TECHNIQUE: X-RAY - XR Ribs Unilateral W/ PA Chest Min 3 Views COMPARISON: June 16, 2023. FINDINGS: Patchy opacity at the periphery of the left lung. Right upper lung peripheral nodular opacity as well. Mild prominence of the interstitium bilaterally. No large effusion. There is no pneumothorax detected. An obvious left-sided rib fracture is not definitively identified. RAD/Ribs Uni Min 3V w/PA Chest IMPRESSION: Findings similar to prior chest radiograph. No obvious acute left-sided rib fracture. Electronically Signed: Jens Bowens MD at 23:13 EST ,
[2023-06-27 22:53] LABS: Anion Gap 3 (5-15); BUN 26 mg/dL (7-18); Calcium,Total 8.3 mg/dL (8.5-10.1); Chloride 103 mmol/L (98-107); EST Glomerular Filtration Rate 37 mL/min (>60); Est Glom Filt Rate - Afr Amer 45 mL/min (>60); Estimated Creatinine Clearance 48.27 ml/min; Glucose 194 mg/dL (74-106); Potassium 3.5 mmol/L (3.5-5.1); Sodium Level 138 mmol/L (136-145); Troponin-I HS (w/2H Reflex) 60 pg/mL (3.0-78.0)
[2023-06-27] MEDS: Ondansetron 4 MG/2 ML Vial IV (22:56)
[2023-06-27] MEDS: Morphine 4 MG/ML Syringe IV (22:57)
[2023-06-28 00:10] VITALS: BP 113/69; PULSE 34; RESP 13; O2SAT 98
--- NOTE | 2023-06-28 00:17 | NURSING ---
Report calld to Олег given to Melyssa DOVER.
[2023-06-28 00:21] LABS: Reflex Troponin-HS? (from REC) Y
[2023-06-28 00:46] VITALS: BP 114/42; PULSE 38; RESP 22; O2SAT 97
[2023-06-28 01:15] VITALS: BP 103/74; PULSE 38; RESP 20; O2SAT 97
[2023-06-28 01:19] LABS: Troponin-I HS 175 pg/mL (3.0-78.0)
[2023-06-28 01:41] VITALS: BP 107/41; PULSE 41; RESP 16; TEMP 36.1; O2SAT 96
== END 2023-06-28 02:01 | disposition short-term general hospital (02) ==
PROVIDERS: Emergency Provider Emergency Medicine; PCP Family Medicine; Visit Provider Emergency Medicine
DX: I44.2 Atrioventricular block, complete (principal); N17.9 Acute kidney failure, unspecified; J44.9 Chronic obstructive pulmonary disease, unspecified; E11.9 Type 2 diabetes mellitus without complications; W10.9XXA Fall (on) (from) unspecified stairs and steps, initial encounter; F17.200 Nicotine dependence, unspecified, uncomplicated; I25.10 Atherosclerotic heart disease of native coronary artery without angina pectoris; R55 Syncope and collapse; S20.20XA Contusion of thorax, unspecified, initial encounter; E78.5 Hyperlipidemia, unspecified; R42 Dizziness and giddiness; I10 Essential (primary) hypertension; Z79.899 Other long term (current) drug therapy; I89.0 Lymphedema, not elsewhere classified; E03.9 Hypothyroidism, unspecified; Z79.890 Hormone replacement therapy; E66.9 Obesity, unspecified; Z79.01 Long term (current) use of anticoagulants; D64.9 Anemia, unspecified
CPT/HCPCS: 71101; 80048; 84484; 85025; 93005; 96361; 96374; 96375; 99285; A4216; J2405

== ENCOUNTER 2023-07-31 08:12 | Outpatient (CLI) | payer MEDICAID, SELFPAY ==
[2023-07-31 08:33] VITALS: BP 123/54; PULSE 70; RESP 16; TEMP 36.6; O2SAT 96; BMI 57.7
[2023-07-31] MEDS: Ertapenem Sod 1 GM in 0.9% Normal Saline (50mL MB+) 50 ML IV (08:45)
[2023-07-31] MEDS: 0.9% NaCl IVPB Med Flush (250 mL) 15 ML IV (08:45)
[2023-07-31] MEDS: 0.9% NaCl PICC Flush IV ×2 (08:45→10:04)
[2023-07-31 10:03] VITALS: BP 140/89; PULSE 69; RESP 16; TEMP 36.6; O2SAT 98
== END 2023-07-31 08:13 | disposition home or self-care (01) ==
LOC: MEDOUTP 08:13
PROVIDERS: PCP Family Medicine
DX: N49.2 Inflammatory disorders of scrotum (principal); N50.89 Other specified disorders of the male genital organs
CPT/HCPCS: 96365; J7050; A4216

== ENCOUNTER 2023-08-01 08:05 | Outpatient (CLI) | payer MEDICAID, SELFPAY ==
[2023-08-01] MEDS: 0.9% NaCl IVPB Med Flush (250 mL) 15 ML IV (08:23)
[2023-08-01] MEDS: 0.9% NaCl PICC Flush IV ×2 (08:23→09:15)
[2023-08-01] MEDS: Ertapenem Sod 1 GM in 0.9% Normal Saline (50mL MB+) 50 ML IV (08:26)
== END 2023-08-01 09:26 | disposition home or self-care (01) ==
LOC: MEDOUTP 08:08 → MS3 08:09
PROVIDERS: PCP Family Medicine; Referring Provider Internal Medicine Infectious Disease; Visit Provider Internal Medicine Infectious Disease
DX: N49.2 Inflammatory disorders of scrotum (principal); N50.89 Other specified disorders of the male genital organs
CPT/HCPCS: 96365; J7050; A4216

== ENCOUNTER 2023-08-02 07:51 | Outpatient (CLI) | payer MEDICAID, SELFPAY ==
[2023-08-02] MEDS: 0.9% NaCl PICC Flush IV (08:10)
[2023-08-02] MEDS: 0.9% Normal Saline (250mL Bag) 250 ML 15 ML IV (08:10)
[2023-08-02] MEDS: Ertapenem Sod 1 GM in 0.9% Normal Saline (50mL MB+) 50 ML IV (08:10)
[2023-08-02] MEDS: 0.9% Saline Lock 10 ML Syringe IV (09:00)
== END 2023-08-02 09:10 | disposition home or self-care (01) ==
LOC: MEDOUTP 07:52 → MS3 07:53
PROVIDERS: PCP Family Medicine; Referring Provider Internal Medicine Infectious Disease; Visit Provider Internal Medicine Infectious Disease
DX: N49.2 Inflammatory disorders of scrotum (principal); N50.89 Other specified disorders of the male genital organs
CPT/HCPCS: 96365; J7050; A4216

== ENCOUNTER 2023-08-03 08:04 | Outpatient (CLI) | payer MEDICAID, SELFPAY ==
[2023-08-03 08:11] VITALS: BP 149/77; PULSE 79; RESP 18; TEMP 36.6; O2SAT 99
[2023-08-03] MEDS: 0.9% NaCl IVPB Med Flush (250 mL) 15 ML IV (08:13)
[2023-08-03] MEDS: Ertapenem Sod 1 GM in 0.9% Normal Saline (50mL MB+) 50 ML IV (08:13)
[2023-08-03] MEDS: 0.9% NaCl PICC Flush IV (09:13)
== END 2023-08-03 09:20 | disposition home or self-care (01) ==
LOC: MEDOUTP 08:04 → MS3 08:05
PROVIDERS: PCP Family Medicine; Referring Provider Internal Medicine Infectious Disease; Visit Provider Internal Medicine Infectious Disease
DX: N49.2 Inflammatory disorders of scrotum (principal); N50.89 Other specified disorders of the male genital organs
CPT/HCPCS: 96365; J7050; A4216

== ENCOUNTER 2023-08-04 07:31 | Outpatient (CLI) | payer MEDICAID, SELFPAY ==
[2023-08-04 07:40] VITALS: BP 153/72; PULSE 84; RESP 18; TEMP 36.4; BMI 57.7
[2023-08-04] MEDS: 0.9% NaCl IVPB Med Flush (250 mL) 15 ML IV (07:53)
[2023-08-04] MEDS: Ertapenem Sod 1 GM in 0.9% Normal Saline (50mL MB+) 50 ML IV (07:55)
[2023-08-04] MEDS: 0.9% NaCl PICC Flush IV ×2 (08:01→09:06)
[2023-08-04 09:07] VITALS: BP 138/72; PULSE 75; RESP 18; TEMP 36.4
== END 2023-08-04 07:32 | disposition home or self-care (01) ==
PROVIDERS: PCP Family Medicine; Referring Provider Internal Medicine Infectious Disease; Visit Provider Internal Medicine Infectious Disease
DX: N49.2 Inflammatory disorders of scrotum (principal); N50.89 Other specified disorders of the male genital organs
CPT/HCPCS: 96365; J7050; A4216

== ENCOUNTER 2023-08-05 07:31 | Outpatient (CLI) | payer MEDICAID, SELFPAY ==
[2023-08-05 07:38] VITALS: BP 148/77; PULSE 98; RESP 20; TEMP 35.8; BMI 57.7
[2023-08-05] MEDS: 0.9% NaCl PICC Flush IV ×2 (07:48→08:57)
[2023-08-05] MEDS: 0.9% NaCl IVPB Med Flush (250 mL) 15 ML IV (07:48)
[2023-08-05] MEDS: Ertapenem Sod 1 GM in 0.9% Normal Saline (50mL MB+) 50 ML IV (07:56)
[2023-08-05 09:02] VITALS: BP 132/67; PULSE 77; RESP 16; TEMP 36.2
== END 2023-08-05 07:32 | disposition home or self-care (01) ==
PROVIDERS: PCP Family Medicine; Referring Provider Internal Medicine Infectious Disease; Visit Provider Internal Medicine Infectious Disease
DX: N49.2 Inflammatory disorders of scrotum (principal); N50.89 Other specified disorders of the male genital organs
CPT/HCPCS: 96365; J7050; A4216

== ENCOUNTER 2023-08-06 07:34 | Outpatient (CLI) | payer MEDICAID, SELFPAY ==
[2023-08-06] MEDS: 0.9% NaCl IVPB Med Flush (250 mL) 15 ML IV (08:09)
[2023-08-06 08:17] LABS: ALB/GLOB Ratio 0.6 RATIO (0.9-2.4); AST(SGOT) 8 U/L (15-37); Alanine Aminotransfer ALT/SGPT 21 U/L (16-61); Albumin, Serum 2.6 g/dL (3.2-5.0); Alkaline Phosphatase 117 U/L (45-117); Anion Gap 4 (5-15); BUN 14 mg/dL (7-18); BUN/Creat Ratio 17.3 RATIO (10-20); Chloride 104 mmol/L (98-107); Creatinine, Serum 0.81 mg/dL (0.70-1.30); EST Glomerular Filtration Rate 106 mL/min (>60); Est Glom Filt Rate - Afr Amer 128 mL/min (>60); Globulin 4.1 g/dL (2.2-4.2); Glucose 105 mg/dL (74-106); Potassium 3.9 mmol/L (3.5-5.1); Protein, Total 6.7 g/dL (6.4-8.2); Sodium Level 141 mmol/L (136-145)
[2023-08-06] MEDS: Ertapenem Sod 1 GM in 0.9% Normal Saline (50mL MB+) 50 ML IV (08:21)
[2023-08-06 08:25] VITALS: BP 148/73; PULSE 71; RESP 18; TEMP 36.2; BMI 57.7
[2023-08-06 08:29] LABS: Erythrocyte Sedimentation Rate 64 mm/hr (0-20)
[2023-08-06 08:31] LABS: Hematocrit 36.3 % (40-54); Hemoglobin 9.9 g/dL (13.0-16.5); Mean Corp Hgb Conc 27.3 g/dL (32-36); Mean Corpuscular Hgb 23.7 pg (27.0-32.0); Mean Corpuscular Volume 86.8 fL (80-94); Mean Platelet Vol. 9.5 fl (6.2-12.0); POSITIVE MORPHOLOGY YES; Platelet Count 248 K/mm3 (150-450); RBC Distribution Width SD 73.3 fl (35.1-43.9); Red Blood Count 4.18 M/mm3 (4.6-6.2); White Blood Count 12.1 K/mm3 (4.4-11.0)
[2023-08-06 08:32] LABS: Scan Indicated on CBC? Y/N YES- FLAGS NOTED
[2023-08-06] MEDS: 0.9% NaCl PICC Flush IV ×2 (08:34→09:19)
[2023-08-06 09:19] VITALS: BP 140/71; PULSE 69
== END 2023-08-06 07:35 | disposition home or self-care (01) ==
LOC: MEDOUTP 07:35
PROVIDERS: PCP Family Medicine; Referring Provider Internal Medicine Infectious Disease; Visit Provider Internal Medicine Infectious Disease
DX: N49.2 Inflammatory disorders of scrotum (principal); N50.89 Other specified disorders of the male genital organs
CPT/HCPCS: 96365; 36592; 80053; 85027; 85652; J7050; A4216

== ENCOUNTER 2023-08-07 08:10 | Outpatient (CLI) | payer MEDICAID, SELFPAY ==
[2023-08-07] MEDS: 0.9% NaCl PICC Flush IV ×2 (08:38→09:20)
[2023-08-07 08:40] VITALS: BP 139/69; PULSE 69; RESP 16; TEMP 36.2; O2SAT 97
[2023-08-07] MEDS: Ertapenem Sod 1 GM in 0.9% Normal Saline (50mL MB+) 50 ML IV (08:43)
[2023-08-07] MEDS: 0.9% NaCl IVPB Med Flush (250 mL) 15 ML IV (08:43)
[2023-08-07 09:38] VITALS: BP 125/78; PULSE 72
== END 2023-08-07 08:11 | disposition home or self-care (01) ==
LOC: MEDOUTP 08:10
PROVIDERS: PCP Family Medicine; Referring Provider Internal Medicine Infectious Disease; Visit Provider Internal Medicine Infectious Disease
DX: N49.2 Inflammatory disorders of scrotum (principal); N50.89 Other specified disorders of the male genital organs
CPT/HCPCS: 96365; J7050; A4216

== ENCOUNTER 2023-08-08 08:47 | Outpatient (CLI) | payer MEDICAID, SELFPAY ==
[2023-08-08] MEDS: 0.9% NaCl PICC Flush IV ×2 (09:13→10:20)
[2023-08-08] MEDS: Ertapenem Sod 1 GM in 0.9% Normal Saline (50mL MB+) 50 ML IV (09:13)
[2023-08-08 09:18] VITALS: BP 153/74; PULSE 73; RESP 18; TEMP 36.7; O2SAT 100
== END 2023-08-08 10:15 | disposition home or self-care (01) ==
LOC: MEDOUTP 08:48 → MS3 08:49
PROVIDERS: PCP Family Medicine; Referring Provider Internal Medicine Infectious Disease; Visit Provider Internal Medicine Infectious Disease
DX: N49.2 Inflammatory disorders of scrotum (principal); N50.89 Other specified disorders of the male genital organs
CPT/HCPCS: 96365; A4216

== ENCOUNTER 2023-08-09 08:16 | Outpatient (CLI) | payer MEDICAID, SELFPAY ==
[2023-08-09] MEDS: Ertapenem Sod 1 GM in 0.9% Normal Saline (50mL MB+) 50 ML IV (08:13)
[2023-08-09] MEDS: 0.9% NaCl PICC Flush IV ×2 (08:14→09:10)
[2023-08-09] MEDS: 0.9% NaCl IVPB Med Flush (250 mL) 15 ML IV (08:14)
[2023-08-09 08:39] VITALS: BP 151/89; PULSE 71; RESP 18; O2SAT 100
== END 2023-08-09 09:15 | disposition home or self-care (01) ==
LOC: MEDOUTP 08:17 → MS3 08:19
PROVIDERS: PCP Family Medicine; Referring Provider Internal Medicine Infectious Disease; Visit Provider Internal Medicine Infectious Disease
DX: N49.2 Inflammatory disorders of scrotum (principal); N50.89 Other specified disorders of the male genital organs
CPT/HCPCS: 96365; J7050; A4216

== ENCOUNTER 2023-08-10 07:31 | Outpatient (CLI) | payer MEDICAID, SELFPAY ==
[2023-08-10 08:03] VITALS: BP 145/64; PULSE 71; RESP 16; TEMP 36; O2SAT 97
[2023-08-10] MEDS: 0.9% NaCl PICC Flush IV ×2 (08:05→08:58)
[2023-08-10] MEDS: 0.9% NaCl IVPB Med Flush (250 mL) 15 ML IV (08:05)
[2023-08-10] MEDS: Ertapenem Sod 1 GM in 0.9% Normal Saline (50mL MB+) 50 ML IV (08:06)
== END 2023-08-10 07:32 | disposition home or self-care (01) ==
LOC: MEDOUTP 07:31
PROVIDERS: PCP Family Medicine; Referring Provider Internal Medicine Infectious Disease; Visit Provider Internal Medicine Infectious Disease
DX: N49.2 Inflammatory disorders of scrotum (principal); N50.89 Other specified disorders of the male genital organs
CPT/HCPCS: 96365; J7050; A4216

== ENCOUNTER 2023-08-11 07:30 | Outpatient (CLI) | payer MEDICAID, SELFPAY ==
[2023-08-11 07:41] VITALS: BP 175/61; PULSE 89; RESP 16; TEMP 36; O2SAT 99; BMI 57.7
[2023-08-11] MEDS: 0.9% NaCl PICC Flush IV ×2 (07:51→08:51)
[2023-08-11] MEDS: Ertapenem Sod 1 GM in 0.9% Normal Saline (50mL MB+) 50 ML IV (07:52)
[2023-08-11] MEDS: 0.9% NaCl IVPB Med Flush (250 mL) 15 ML IV (07:52)
[2023-08-11 08:57] VITALS: BP 141/68; PULSE 81; RESP 16; TEMP 36.3; O2SAT 97
== END 2023-08-11 07:31 | disposition home or self-care (01) ==
LOC: MEDOUTP 07:30
PROVIDERS: PCP Family Medicine; Referring Provider Internal Medicine Infectious Disease; Visit Provider Internal Medicine Infectious Disease
DX: N49.2 Inflammatory disorders of scrotum (principal); N50.89 Other specified disorders of the male genital organs
CPT/HCPCS: 96365; J7050; A4216

== ENCOUNTER 2023-08-12 07:32 | Outpatient (CLI) | payer MEDICAID, SELFPAY ==
[2023-08-12] MEDS: 0.9% NaCl PICC Flush IV ×2 (07:52→08:49)
[2023-08-12] MEDS: 0.9% NaCl IVPB Med Flush (250 mL) 15 ML IV (07:53)
[2023-08-12] MEDS: Ertapenem Sod 1 GM in 0.9% Normal Saline (50mL MB+) 50 ML IV (07:54)
[2023-08-12 07:56] VITALS: BP 152/69; PULSE 82; RESP 18; TEMP 36.3; O2SAT 97; BMI 57.7
[2023-08-12 08:53] VITALS: BP 149/62; PULSE 78; RESP 18
== END 2023-08-12 07:33 | disposition home or self-care (01) ==
LOC: MEDOUTP 07:32
PROVIDERS: PCP Family Medicine; Referring Provider Internal Medicine Infectious Disease; Visit Provider Internal Medicine Infectious Disease
DX: N49.2 Inflammatory disorders of scrotum (principal); N50.89 Other specified disorders of the male genital organs
CPT/HCPCS: 96365; J7050; A4216

== ENCOUNTER 2023-08-13 07:30 | Outpatient (CLI) | payer MEDICAID, SELFPAY ==
[2023-08-13 07:57] LABS: Erythrocyte Sedimentation Rate 80 mm/hr (0-20)
[2023-08-13] MEDS: 0.9% NaCl IVPB Med Flush (250 mL) 15 ML IV (07:58)
[2023-08-13 07:59] LABS: Hematocrit 37.5 % (40-54); Hemoglobin 10.1 g/dL (13.0-16.5); Mean Corp Hgb Conc 26.9 g/dL (32-36); Mean Corpuscular Hgb 23.8 pg (27.0-32.0); Mean Corpuscular Volume 88.2 fL (80-94); POSITIVE MORPHOLOGY YES; Platelet Count 318 K/mm3 (150-450); RBC Distribution Width CV 21.2 % (11.6-14.6); Red Blood Count 4.25 M/mm3 (4.6-6.2); White Blood Count 12.9 K/mm3 (4.4-11.0)
[2023-08-13] MEDS: 0.9% NaCl PICC Flush IV ×3 (07:59→08:48)
[2023-08-13] MEDS: Ertapenem Sod 1 GM in 0.9% Normal Saline (50mL MB+) 50 ML IV (07:59)
[2023-08-13 08:01] VITALS: BP 151/64; PULSE 83; RESP 18; TEMP 36.5; BMI 57.6
[2023-08-13 08:02] LABS: Scan Indicated on CBC? Y/N YES- FLAGS NOTED
[2023-08-13 08:17] LABS: ALB/GLOB Ratio 0.6 RATIO (0.9-2.4); AST(SGOT) 8 U/L (15-37); Alanine Aminotransfer ALT/SGPT 16 U/L (16-61); Albumin, Serum 2.5 g/dL (3.2-5.0); Alkaline Phosphatase 125 U/L (45-117); Anion Gap 4 (5-15); BUN 14 mg/dL (7-18); BUN/Creat Ratio 17.4 RATIO (10-20); Calcium,Total 9.3 mg/dL (8.5-10.1); Chloride 104 mmol/L (98-107); EST Glomerular Filtration Rate 106 mL/min (>60); Est Glom Filt Rate - Afr Amer 129 mL/min (>60); Estimated Creatinine Clearance 192.17 ml/min; Globulin 4.5 g/dL (2.2-4.2); Glucose 108 mg/dL (74-106); Potassium 4.1 mmol/L (3.5-5.1); Sodium Level 140 mmol/L (136-145)
[2023-08-13 08:31] LABS: Differential Comment SCANNED
[2023-08-13 09:07] VITALS: BP 145/65; PULSE 75; RESP 18; TEMP 37.1
[2023-08-13 15:52] LABS: Xtra Tube EP Lab EXTRA TUBE
== END 2023-08-13 07:31 | disposition home or self-care (01) ==
LOC: MEDOUTP 07:30
PROVIDERS: PCP Family Medicine; Referring Provider Internal Medicine Infectious Disease; Visit Provider Internal Medicine Infectious Disease
DX: N49.2 Inflammatory disorders of scrotum (principal); N50.89 Other specified disorders of the male genital organs
CPT/HCPCS: 96365; 36592; 80053; 85027; 85652; J7050; A4216

== ENCOUNTER 2023-08-14 07:45 | Outpatient (CLI) | payer MEDICAID, SELFPAY ==
[2023-08-14] MEDS: Ertapenem Sod 1 GM in 0.9% Normal Saline (50mL MB+) 50 ML IV (08:19)
[2023-08-14] MEDS: 0.9% NaCl IVPB Med Flush (250 mL) 15 ML IV (08:20)
[2023-08-14] MEDS: 0.9% NaCl PICC Flush IV ×2 (08:20→09:28)
[2023-08-14 08:29] VITALS: BP 137/72; PULSE 81; RESP 16; TEMP 36.6; O2SAT 100; BMI 57.6
[2023-08-14 09:34] VITALS: BP 131/42; PULSE 77; RESP 16; TEMP 36.6; O2SAT 100
== END 2023-08-14 07:46 | disposition home or self-care (01) ==
LOC: MEDOUTP 07:45
PROVIDERS: PCP Family Medicine; Referring Provider Internal Medicine Infectious Disease; Visit Provider Internal Medicine Infectious Disease
DX: N49.2 Inflammatory disorders of scrotum (principal); N50.89 Other specified disorders of the male genital organs
CPT/HCPCS: 96365; J7050; A4216

== ENCOUNTER 2023-08-15 07:59 | Outpatient (CLI) | payer MEDICAID, SELFPAY ==
[2023-08-15] MEDS: Ertapenem Sod 1 GM in 0.9% Normal Saline (50mL MB+) 50 ML IV (08:29)
[2023-08-15] MEDS: 0.9% NaCl PICC Flush IV ×2 (08:30→09:56)
== END 2023-08-15 10:03 | disposition home or self-care (01) ==
LOC: MEDOUTP 07:59 → PCU 08:02
PROVIDERS: PCP Family Medicine; Referring Provider Internal Medicine Infectious Disease; Visit Provider Internal Medicine Infectious Disease
DX: N49.2 Inflammatory disorders of scrotum (principal); N50.89 Other specified disorders of the male genital organs
CPT/HCPCS: 96365; 96366; A4216

== ENCOUNTER → 2023-08-16 | Outpatient (CLI) | payer MEDICAID, SELFPAY | END | disposition home or self-care (01) | LOC: MEDOUTP 09-04 08:11 | PROVIDERS: PCP Family Medicine; Referring Provider Internal Medicine Infectious Disease; Visit Provider Internal Medicine Infectious Disease | DX: N49.2 Inflammatory disorders of scrotum (principal); N50.89 Other specified disorders of the male genital organs ==

== ENCOUNTER 2023-08-17 07:30 | Outpatient (CLI) | payer MEDICAID, SELFPAY ==
[2023-08-17 07:38] VITALS: BP 144/69; PULSE 87; RESP 20; TEMP 36.2; O2SAT 100; BMI 57.6
[2023-08-17] MEDS: 0.9% NaCl PICC Flush IV ×2 (07:47→08:51)
[2023-08-17] MEDS: Ertapenem Sod 1 GM in 0.9% Normal Saline (50mL MB+) 50 ML IV (07:48)
[2023-08-17] MEDS: 0.9% NaCl IVPB Med Flush (250 mL) 15 ML IV (07:48)
[2023-08-17 08:56] VITALS: BP 139/85; PULSE 88; RESP 16; TEMP 37.1; O2SAT 95
== END 2023-08-17 07:31 | disposition home or self-care (01) ==
LOC: MEDOUTP 07:30
PROVIDERS: PCP Family Medicine; Referring Provider Internal Medicine Infectious Disease; Visit Provider Internal Medicine Infectious Disease
DX: M54.6 Pain in thoracic spine (principal); M54.50 Low back pain, unspecified
CPT/HCPCS: 96365; J7050; A4216

== ENCOUNTER 2023-08-18 07:27 | Outpatient (CLI) | payer MEDICAID, SELFPAY ==
[2023-08-18 07:41] VITALS: BP 196/67; PULSE 76; RESP 20; TEMP 35.9; O2SAT 97; BMI 57.6
[2023-08-18] MEDS: 0.9% NaCl PICC Flush IV ×2 (07:44→08:24)
[2023-08-18] MEDS: 0.9% NaCl IVPB Med Flush (250 mL) 15 ML IV (07:45)
[2023-08-18] MEDS: Ertapenem Sod 1 GM in 0.9% Normal Saline (50mL MB+) 50 ML IV (07:45)
[2023-08-18 08:34] VITALS: BP 123/80; PULSE 80; RESP 18; TEMP 36.8; O2SAT 94
== END 2023-08-18 07:28 | disposition home or self-care (01) ==
LOC: MEDOUTP 07:27
PROVIDERS: PCP Family Medicine; Referring Provider Internal Medicine Infectious Disease; Visit Provider Internal Medicine Infectious Disease
DX: N49.2 Inflammatory disorders of scrotum (principal); N50.89 Other specified disorders of the male genital organs
CPT/HCPCS: 96365; J7050; A4216

== ENCOUNTER 2023-08-19 07:31 | Outpatient (CLI) | payer MEDICAID, SELFPAY ==
[2023-08-19 07:42] VITALS: BP 161/71; PULSE 95; RESP 20; TEMP 35.5; O2SAT 97; BMI 57.6
[2023-08-19] MEDS: 0.9% NaCl PICC Flush IV ×2 (07:45→08:41)
[2023-08-19] MEDS: 0.9% NaCl IVPB Med Flush (250 mL) 15 ML IV (07:45)
[2023-08-19] MEDS: Ertapenem Sod 1 GM in 0.9% Normal Saline (50mL MB+) 50 ML IV (07:46)
[2023-08-19 08:42] VITALS: BP 139/64; PULSE 83; RESP 18; TEMP 36.8
== END 2023-08-19 07:32 | disposition home or self-care (01) ==
LOC: MEDOUTP 07:31
PROVIDERS: PCP Family Medicine; Referring Provider Internal Medicine Infectious Disease; Visit Provider Internal Medicine Infectious Disease
DX: N49.2 Inflammatory disorders of scrotum (principal); N50.89 Other specified disorders of the male genital organs
CPT/HCPCS: 96365; J7050; A4216

== ENCOUNTER 2023-08-20 07:33 | Outpatient (CLI) | payer MEDICAID, SELFPAY ==
[2023-08-20 07:55] VITALS: BP 144/65; PULSE 77; RESP 20; TEMP 36.7; O2SAT 100; BMI 57.6
[2023-08-20] MEDS: 0.9% NaCl PICC Flush IV ×3 (07:59→08:48)
[2023-08-20] MEDS: 0.9% NaCl IVPB Med Flush (250 mL) 15 ML IV (07:59)
[2023-08-20] MEDS: Ertapenem Sod 1 GM in 0.9% Normal Saline (50mL MB+) 50 ML IV (08:00)
[2023-08-20 08:22] LABS: ALB/GLOB Ratio 0.5 RATIO (0.9-2.4); AST(SGOT) 6 U/L (15-37); Alanine Aminotransfer ALT/SGPT 17 U/L (16-61); Albumin, Serum 2.4 g/dL (3.2-5.0); Alkaline Phosphatase 127 U/L (45-117); Anion Gap 3 (5-15); BUN 13 mg/dL (7-18); BUN/Creat Ratio 16.1 RATIO (10-20); Calcium,Total 8.7 mg/dL (8.5-10.1); Chloride 105 mmol/L (98-107); Creatinine, Serum 0.81 mg/dL (0.70-1.30); EST Glomerular Filtration Rate 106 mL/min (>60); Est Glom Filt Rate - Afr Amer 128 mL/min (>60); Estimated Creatinine Clearance 187.61 ml/min; Globulin 4.4 g/dL (2.2-4.2); Glucose 97 mg/dL (74-106); Potassium 3.8 mmol/L (3.5-5.1); Protein, Total 6.8 g/dL (6.4-8.2); Sodium Level 141 mmol/L (136-145)
[2023-08-20 08:24] LABS: Erythrocyte Sedimentation Rate 95 mm/hr (0-20)
[2023-08-20 08:31] LABS: Hematocrit 37.1 % (40-54); Hemoglobin 10.1 g/dL (13.0-16.5); Mean Corp Hgb Conc 27.2 g/dL (32-36); Mean Corpuscular Hgb 23.9 pg (27.0-32.0); Mean Corpuscular Volume 87.7 fL (80-94); Mean Platelet Vol. 9.4 fl (6.2-12.0); POSITIVE MORPHOLOGY YES; Platelet Count 280 K/mm3 (150-450); RBC Distribution Width CV 20.2 % (11.6-14.6); RBC Distribution Width SD 65.2 fl (35.1-43.9); Red Blood Count 4.23 M/mm3 (4.6-6.2); White Blood Count 13.5 K/mm3 (4.4-11.0)
[2023-08-20 08:34] LABS: Scan Indicated on CBC? Y/N YES- FLAGS NOTED
[2023-08-20 08:50] VITALS: BP 105/86; PULSE 80; RESP 18; TEMP 36.9
[2023-08-20 08:53] LABS: Differential Comment SCANNED
== END 2023-08-20 07:34 | disposition home or self-care (01) ==
PROVIDERS: PCP Family Medicine; Referring Provider Internal Medicine Infectious Disease; Visit Provider Internal Medicine Infectious Disease
DX: N49.2 Inflammatory disorders of scrotum (principal); N50.89 Other specified disorders of the male genital organs
CPT/HCPCS: 96365; 36592; 80053; 85027; 85652; J7050; A4216

== ENCOUNTER → 2023-08-26 | Outpatient (CLI) | payer MEDICAID, SELFPAY ==
[2023-08-26 13:13] LABS: Erythrocyte Sedimentation Rate 69 mm/hr (0-20)
[2023-08-26 13:14] LABS: Absolute Lymphocyte Count 2.63 X10^3/uL (0.83-4.51); Absolute Neutrophil Count 10.9 X10^3/uL (2.0-7.7); Basophil# 0.06 X10^3/uL; Basophil% 0.4 % (0-1); Eosinophil# 0.35 X10^3/uL; Eosinophils% 2.4 % (0-5); Hematocrit 37.1 % (40-54); Hemoglobin 9.9 g/dL (13.0-16.5); Lymphocyte # 2.63 X10^3/ul (0.83-4.51); Mean Corp Hgb Conc 26.7 g/dL (32-36); Mean Corpuscular Hgb 23.6 pg (27.0-32.0); Mean Corpuscular Volume 88.3 fL (80-94); Mean Platelet Vol. 9.8 fl (6.2-12.0); Monocyte# 0.58 X10^3/uL; NRBC Flagged by Analyzer 0 % (0-5); Neutrophil # 10.87 X10^3/uL (2.7-7.7); Neutrophil % 74.4 % (47-70); Platelet Count 253 K/mm3 (150-450); RBC Distribution Width CV 19.9 % (11.6-14.6); White Blood Count 14.6 K/mm3 (4.4-11.0)
[2023-08-26 13:49] LABS: ALB/GLOB Ratio 0.6 RATIO (0.9-2.4); AST(SGOT) 12 U/L (15-37); Alanine Aminotransfer ALT/SGPT 16 U/L (16-61); Albumin, Serum 2.4 g/dL (3.2-5.0); Alkaline Phosphatase 128 U/L (45-117); Anion Gap 6 (5-15); BUN 13 mg/dL (7-18); Calcium,Total 8.8 mg/dL (8.5-10.1); Chloride 102 mmol/L (98-107); Creatinine, Serum 0.76 mg/dL (0.70-1.30); EST Glomerular Filtration Rate 113 mL/min (>60); Est Glom Filt Rate - Afr Amer 137 mL/min (>60); Globulin 4.3 g/dL (2.2-4.2); Glucose 127 mg/dL (74-106); Potassium 3.7 mmol/L (3.5-5.1); Protein, Total 6.7 g/dL (6.4-8.2); Sodium Level 139 mmol/L (136-145)
== END | disposition home or self-care (01) ==
LOC: LAB 12:54
PROVIDERS: PCP Family Medicine; Referring Provider Family Medicine; Visit Provider Family Medicine
DX: K61.0 Anal abscess (principal)
CPT/HCPCS: 80053; 85025; 85652

== ENCOUNTER → 2023-11-11 | Outpatient (CLI) | payer MEDICAID, SELFPAY ==
[2023-11-11 10:18] LABS: Vitamin D,25 Hydroxy 21.7 ng/mL
[2023-11-11 10:22] LABS: Hemoglobin A1c 8.7 % (3.8-5.6)
[2023-11-11 10:24] LABS: ALB/GLOB Ratio 0.5 RATIO (0.9-2.4); AST(SGOT) 10 U/L (15-37); Alanine Aminotransfer ALT/SGPT 18 U/L (16-61); Albumin, Serum 2.3 g/dL (3.2-5.0); Alkaline Phosphatase 113 U/L (45-117); Anion Gap 3 (5-15); BUN 11 mg/dL (7-18); BUN/Creat Ratio 11.2 RATIO (10-20); Calcium,Total 8.8 mg/dL (8.5-10.1); Chloride 103 mmol/L (98-107); Creatinine, Serum 0.98 mg/dL (0.70-1.30); EST Glomerular Filtration Rate 85 mL/min (>60); Est Glom Filt Rate - Afr Amer 102 mL/min (>60); Free T3 1.9 pg/mL (2.18-3.98); Globulin 4.5 g/dL (2.2-4.2); Glucose 139 mg/dL (74-106); Protein, Total 6.8 g/dL (6.4-8.2); Sodium Level 138 mmol/L (136-145); T4 Free Direct 1.28 ng/dL (0.76-1.46); Thyroid Stim Hormone (TSH) 2.18 uIU/mL (0.358-3.74)
[2023-11-11 10:27] LABS: Erythrocyte Sedimentation Rate 43 mm/hr (0-20)
[2023-11-11 10:31] LABS: Absolute Lymphocyte Count 2.68 X10^3/uL (0.83-4.51); Absolute Neutrophil Count 10.2 X10^3/uL (2.0-7.7); Basophil# 0.05 X10^3/uL; Basophil% 0.4 % (0-1); Eosinophil# 0.23 X10^3/uL; Eosinophils% 1.7 % (0-5); Hematocrit 36.7 % (40-54); Hemoglobin 10.3 g/dL (13.0-16.5); Lymphocyte # 2.68 X10^3/ul (0.83-4.51); Lymphocyte % 19.3 % (19-41); Mean Corp Hgb Conc 28.1 g/dL (32-36); Mean Corpuscular Hgb 24.7 pg (27.0-32.0); Mean Platelet Vol. 9.8 fl (6.2-12.0); Monocyte# 0.64 X10^3/uL; Monocyte% 4.6 % (0-10); NRBC Flagged by Analyzer 0 % (0-5); Neutrophil # 10.23 X10^3/uL (2.7-7.7); Neutrophil % 73.4 % (47-70); Platelet Count 268 K/mm3 (150-450); RBC Distribution Width CV 15.9 % (11.6-14.6); RBC Distribution Width SD 51.2 fl (35.1-43.9); Red Blood Count 4.17 M/mm3 (4.6-6.2); White Blood Count 13.9 K/mm3 (4.4-11.0)
== END | disposition home or self-care (01) ==
LOC: LAB 03:48
PROVIDERS: PCP Family Medicine; Referring Provider Family Medicine; Visit Provider Family Medicine
DX: E03.9 Hypothyroidism, unspecified (principal); M06.9 Rheumatoid arthritis, unspecified; E11.9 Type 2 diabetes mellitus without complications; K61.0 Anal abscess; E55.9 Vitamin D deficiency, unspecified; M79.7 Fibromyalgia
CPT/HCPCS: 36415; 80053; 82306; 83036; 84439; 84443; 84481; 85025; 85652; 86140; P9604

== ENCOUNTER 2023-11-12 13:37 | Inpatient (IN) | payer MEDICAID, SELFPAY ==
[2023-11-12 13:37] VITALS: BP 142/77; PULSE 99; RESP 22; TEMP 36.6; O2SAT 97
--- NOTE | 2023-11-12 14:11 | CT_ITS ---
STUDY: CT ABDOMEN AND PELVIS WITHOUT CONTRAST REASON FOR EXAM: Male, 53 years old. Perineum pain, sob. RADIATION DOSAGE (If Supplied By Facility): CTDIvol = ( 31.18 ) mGy, DLP = ( 5837.10 ) mGycm TECHNIQUE: Transaxial images were obtained from the dome of the diaphragm to the symphysis pubis without oral contrast, and without intravenous contrast. Sagittal and coronal images were reconstructed. Individualized dose optimization techniques were used for this CT. COMPARISON: Comparison is made with prior study dated March 19, 2023. FINDINGS: Focal pleural parenchymal scarring in the posterolateral aspect of the left lung base. Linear scarring at the right lung base with mild pleural thickening. A dual-chamber pacemaker device is seen. No definite coronary artery calcification is present. Normal liver. Possible sludge or small gallstones within the gallbladder lumen. There are multiple benign calcified granulomata of the spleen. Normal pancreas. Normal bilateral adrenal glands. Normal right kidney. Normal left kidney. Normal visualized stomach. Normal small intestine. Normal colon. The appendix is visualized and appears normal. There is scattered atherosclerotic calcification of the abdominal aorta, without a demonstrated aneurysm. Normal inferior vena cava. Normal retroperitoneum. Normal urinary bladder. There is diffuse scrotal thickening. There is a 3.5 cm x 3.3 cm rounded hypodensity with increased markings in the surrounding fat in the superior anterior midline of the perineum. This extends towards the scrotal sac were there is a similar-appearing hypodense well-defined soft tissue density measuring 3.1 cm x 3.8 cm. This extends into the left side of the midline. There is also evidence of increase soft tissue swelling in the medial subclavian venous tissues of both proximal thighs as well as the skin thickening. No air is seen within the soft tissues at this time. Small bilateral benign-appearing inguinal lymph nodes. There are degenerative changes of the visualized lumbar spine. CT/Abdomen/Pelvis without Cont IMPRESSION: Inflammatory changes are seen in the perineum with 2 adjacent focal areas of the phlegmon/early fluid collections as described with evidence skin thickening along the medial aspect of the proximal thighs and subcutaneous edema. Diffuse scrotal thickening. No air is seen within this collection at this time. Follow-up recommended. Electronically Signed: Hieu Garcia MD at 15:22 EDT ,
--- NOTE | 2023-11-12 14:11 | EKG12_ITS ---
Test Reason : SOB Blood Pressure : / mmHG Vent. Rate : 092 BPM Atrial Rate : 092 BPM P-R Int : 170 ms QRS Dur : 140 ms QT Int : 388 ms P-R-T Axes : 059 -59 040 degrees QTc Int : 479 ms Normal sinus rhythm Right bundle branch block Left anterior fascicular block Bifascicular block Abnormal ECG Confirmed by Epi Bonilla ([id number]), subeditor СЕРГЕЙ GIRALDO ([id number]) on 11/13/2023 11:01:20 AM Referred By: Confirmed By:Epi Bonilla
--- NOTE | 2023-11-12 14:15 | EDS_ITS ---
HPI History of Present Illness Chief Complaint: Shortness of Breath Informant: patient Narrative Narrative: 53-year-old male states he has chronic edema in his legs that has been getting worse for about a week and he has also developed scrotal swelling and pain gr adually in that amount of time. Additionally for the last several days has been having dyspnea with exertion, mild orthopnea, no chest discomfort or syncope. He is having pain to progresses into the perineum. Scrotum is painful. He states he is on prophylactic antibiotics because of a history of MRSA boils; has been on Bactrim for a while, just started cefdinir several days ago. He follows with infectious disease physician in [place]. Patient states he has been on Lasix, but it intermittently seems to make him urinate after taking it. He does not have symptoms of retention, subjectively. [facility] Medical History Abscess of deep perineal space Anemia Anemia Anxiety Atherosclerotic heart disease of [place] coronary artery without angina pectoris Chest pain Chronic hypoxemic respiratory failure Chronic pain Chronic prescription benzodiazepine use Chronic steroid use Colon polyps COPD (chronic obstructive pulmonary disease) Depression DVT (deep venous thrombosis) Essential hypertension Family history of premature CAD GERD (gastroesophageal reflux disease) Goiter History of Chanel's gangrene HLD (hyperlipidemia) Hypothyroidism IBS (irritable bowel syndrome) Intertrigo Kidney stones Left against medical advice Non-healing surgical wound NSTEMI, initial episode of care On home oxygen therapy BERT (obstructive sleep apnea) Pain in scapula PTSD (post-traumatic stress disorder) Rheumatoid arthritis Sleep apnea Smoker Super obesity Superficial thrombophlebitis of leg Thrush Type 2 diabetes mellitus Ulcer of scrotum Home Medications diazepam 10 mg tablet (Valium) 10 mg PO 4X/DAY PRN Anxiety 03/03/16 [History Last Taken 08/15/22] albuterol sulfate 90 mcg/actuation aerosol inhaler (Ventolin HFA) 1 - 2 puff inhalation UD PRN Sob &/Or Wheezing 07/07/20 [History Last Taken 08/11/22] ascorbic acid (vitamin C) 500 mg capsule 500 mg PO DAILY SUPPLEMENT 07/07/20 [History Last Taken 03/26/23] gabapentin 100 mg capsule 200 mg PO QHS PRN neuropathy 07/07/20 [History Last Taken 03/25/23] omeprazole 20 mg capsule,delayed release 20 mg PO BID ACID REFLUX 07/07/20 [History Last Taken 03/26/23] glipizide 2.5 mg tablet, extended release 24 hr 2.5 mg PO BID DIABETES 09/06/21 [History Last Taken 03/26/23] ammonium lactate 12 % topical cream 1 applic topical BID LEGS 08/16/22 [History Last Taken 03/26/23] aspirin 81 mg tablet,delayed release 81 mg PO DAILY HEART HEALTH 08/16/22 [History Last Taken 03/26/23] atorvastatin 40 mg tablet 40 mg PO QHS CHOLESTEROL 08/16/22 [History Last Taken 03/25/23] bumetanide 1 mg tablet 1 mg PO DAILY FLUID 08/16/22 [History Last Taken Unknown] dabigatran etexilate 150 mg capsule (Pradaxa) 150 mg PO BID BLOOD THINNER 08/16/22 [History Last Taken 03/26/23] fluticasone propionate 50 mcg/actuation nasal spray,suspension 2 spray intranasal DAILY PRN Nasal Congestion 08/16/22 [History Last Taken Unknown] levothyroxine 150 mcg tablet 150 mcg PO DAILY THYROID 08/16/22 [History Last Taken 03/26/23] losartan 25 mg tablet 25 mg PO BID BLOOD PRESSURE 08/16/22 [History Last Taken 03/26/23] metoprolol tartrate 25 mg tablet 12.5 mg PO BID BLOOD PRESSURE 08/16/22 [History Last Taken 03/26/23] miconazole nitrate 2 % topical cream 1 applic topical BID FUNGAL INFECTION 08/16/22 [History Last Taken 03/26/23] nystatin 100,000 unit/gram topical powder (Nyamyc) 1 applic topical BID SKIN FOLDS 08/16/22 [History Last Taken 03/26/23] prednisone 10 mg tablet 10 mg PO BID STEROID 08/16/22 [History Last Taken 03/26/23] ticagrelor 90 mg tablet (Brilinta) 90 mg PO BID BLOOD THINNER 08/16/22 [History Last Taken 03/26/23] doxycycline hyclate 100 mg capsule 100 mg PO BID #14 caps 06/17/23 [Rx Last Taken Unknown] furosemide 20 mg tablet 20 mg PO LUNCH 06/27/23 [History Last Taken Unknown] furosemide 40 mg tablet (Lasix) 40 mg PO DAILY 06/27/23 [History Last Taken Unknown] levothyroxine 88 mcg tablet 88 mcg PO DAILY 06/27/23 [History Last Taken Unknown] nicotine 21 mg/24 hr daily transdermal patch 1 patch topical Q24H PRN smoking cessation 07/31/23 [History Last Taken Unknown] potassium chloride 20 mEq tablet,extended release (K-Tab) 10 meq PO BID 07/31/23 [History Last Taken Unknown] Allergy/AdvReac Type Severity Reaction Status Date / Time Penicillins Allergy Hives Verified 11/12/23 13:38 red dye Allergy Hives Verified 11/12/23 13:38 etanercept [From Enbrel] AdvReac Swelling Verified 11/12/23 13:38 rivaroxaban [From Xarelto] AdvReac Nausea Verified 11/12/23 13:38 warfarin sodium AdvReac Nausea Verified 11/12/23 13:38 [From Coumadin] Family History Other Cancer Heart disease Kidney disease Surgical History History of coronary artery stent placement (03/25/21) Social History household members: family Smoking Status: Former smoker substance use type: does not use ROS ROS ED Constitutional Constitutional ED: Denies chills or fever(s) Eyes Eyes: Denies change in vision or diplopia ENT ENT ED: Denies rhinorrhea or sore throat Cardiovascular Cardiovascular: Reports leg edema and orthopnea; Denies chest pain or palpitations Respiratory/Chest Respiratory/Chest: Reports dyspnea, dyspnea on exertion and orthopnea; Denies cough Gastrointestinal Gastrointestinal: Denies abdominal pain, diarrhea, nausea or vomiting Genitourinary Genitourinary ED: Reports as per HPI, scrotal pain, scrotal swelling and other Details: perineum pain ; Denies dysuria or hematuria Musculoskeletal Musculoskeletal: Denies back pain or neck pain Integumentary Denies abscess or rash Neurologic Neurologic: Denies headache(s), paresthesias or weakness Psychiatric Psychiatric: Denies anxiety or suicidal thoughts EXAM Physical Exam Const Vital Signs: 11/12/23 13:37 11/12/23 14:07 11/12/23 14:11 Temperature 98 F Temperature Source Temporal Pulse Rate 99 Respiratory Rate 22 H Respiratory Depth Normal Respiratory Pattern Normal Blood Pressure 142/77 H Blood Pressure Mean 98 Pulse Ox 97 Oxygen Delivery Method Nasal Cannula Nasal Cannula Oxygen Flow Rate (L/min) 4 4 11/12/23 15:37 Temperature Temperature Source Pulse Rate 81 Respiratory Rate 22 H Respiratory Depth Respiratory Pattern Blood Pressure 144/78 H Blood Pressure Mean 100 Pulse Ox 94 Oxygen Delivery Method Nasal Cannula Oxygen Flow Rate (L/min) 2 Positive well nourished and well developed Constitutional Narrative: Morbidly obese General Appearance ED: well developed and NAD HEENT Reports moist mucous membranes normocephalic and atraumatic Eyes PERRL and EOMs intact bilaterally Neck full ROM and supple Neck Narrative: Limited evaluation for JVD due to obesity Resp normal respiratory effort and clear to auscultation bilaterally Cardio regular rate, regular rhythm and no murmurs GI non-tender and non-distended Auscultation: normoactive bowel sounds Palpation: soft Narrative: Scrotum diffusely edematous and erythematous and tender. No subcutaneous emphysema palpable. In perineum, diffuse erythema and tenderness, there is a small wound that appears to have purulent discharge that is at the right side of the scrotum near where it inserts into the perineum, seemingly coming from where it rubs on the proximal thigh in the groin. There is no subcutaneous emphysema palpable and no necrotic tissue or palpable abscess present in the perineum anyw here. Back/Spine no CVA tenderness General Back: other FROM Extremity normal to inspection General Extremety ED: Yes edema; Negative for pulses abnormal or tenderness General Extremity: edema bilateral lower extremity Details: moderate; Negative for pulses abnormal Neuro oriented x3, CN's II-XII intact bilaterally and no sensory deficits noted Sensorium / Orientation: awake and alert Motor Exam: strength 5/5 throughout Psych mental status grossly normal Skin no rashes or lesions noted Skin Narrative: Wound posterior aspect of right scrotum see above MDM MDM MDM Narrative Medical decision making narrative: Clinically my concern is for development of infection in his scrotum and perineum. He does not have clinical findings of necrotic tissue/Chanel's. I obtained a CT scan, it shows some soft tissue abnormalities and possible early collections but no subcutaneous air formation. He is already on Bactrim for prophylaxis against MRSA. He does have a leukocytosis and a lactic acidosis, he does not have renal failure and his BNP and troponin are both well within normal limits. Chest x-ray 1 view limited due to obesity, I do not think there is acute pulmonary edema radiology in agreement. I reviewed the CT images and the report which I agree with. I am starting him on triple antibiotic therapy to cover gram-positive, gram-negative, and anaerobes, and plan is admitting him to the hospital, I do not think he needs emergency surgical debridement. And ordering his gentamicin, I performed initial conventional interval dosing using adjusted weight based on following: [place] Body Weight and Adjusted Body Weight from [facility] on 11/12/2023 All calculations should be rechecked by clinician prior to use RESULT SUMMARY: 176 lbs [place] Body Weight Equivalent to 80 kg Actual body weight is 264% (2.6x) ideal body weight 292 lbs Adjusted Body Weight Equivalent to 132 kg INPUTS: Sex ?> 0 = Male Height ?> 73 in Actual body weight ?> 465 lbs Lab Data Attestation: I reviewed the patient's lab results. Labs: Laboratory Results - last 24 hr 11/12/23 14:36 WBC 14.7 H RBC 4.29 L Hgb 10.5 L Hct 37.1 L MCV 86.5 MCH 24.5 L MCHC 28.3 L RDW Std Deviation 49.9 H RDW Coeff of Kris 15.9 H Plt Count 284 MPV 9.6 Immature Gran % (Auto) 0.800 Neut % (Auto) 82.2 H Lymph % (Auto) 11.5 L [place] % (Auto) 4.5 Eos % (Auto) 0.7 Baso % (Auto) 0.3 Absolute Neuts (auto) 12.1 H Absolute Lymphs (auto) 1.69 Nucleated RBC % 0 Sodium 137 Potassium 3.8 Chloride 101 Carbon Dioxide 35.0 H Anion Gap 1 L BUN 13 Creatinine 1.29 Est GFR (MDRD) Af Amer 75 Est GFR (MDRD) Non-Af 62 BUN/Creatinine Ratio 10.1 Glucose 114 H Lactic Acid 3.2 H* Calcium 9.0 Troponin I High Sens 12 B-Natriuretic Peptide 42.7 Radiography Diagnostic Testing: Clinical Impression(s) from Imaging Studies Abdomen/Pelvis CT 11/12/23 14:11 IMPRESSION: Inflammatory changes are seen in the perineum with 2 adjacent focal areas of the phlegmon/early fluid collections as described with evidence skin thickening along the medial aspect of the proximal thighs and subcutaneous edema. Diffuse scrotal thickening. No air is seen within this collection at this time. Follow-up recommended. Electronically Signed: Hieu Garcia MD at 15:22 EDT , Chest X-Ray 11/12/23 14:59 IMPRESSION: Stable bilateral increased markings in both lungs as described suggestive of scarring. Electronically Signed: Hieu Garcia MD at 15:24 EDT , Rhythm Strip Rhythm Strip: Sinus Rhythm Rate: 92 Ectopy: None EKG Initial EKG: Attestation: I personally reviewed and interpreted this EKG as follows: Interpretation: Sinus Rhythm, No Acute Injury Pattern and LAFB Prior EKG tracings: available for review Prior: Unchanged Management Discussion w/another healthcare provider: Hospitalist Discharge Plan Dx/Rx/DC Orders Clinical Impression: Cellulitis of scrotum, Edema of both lower legs, BURCH (dyspnea on exertion) Disposition Disposition: Acute Care Hospital [facility]
--- NOTE | 2023-11-12 14:59 | RAD_ITS ---
STUDY: X-RAY CHEST REASON FOR EXAM: Male, 53 years old. Sob TECHNIQUE: Single AP portable view of the chest. COMPARISON: Comparison is made with prior study June 27, 2023. FINDINGS: Stable irregular opacities are seen in the left hemithorax suggestive of scarring. Stable partially calcified nodule in the peripheral lateral aspect of the right upper lobe as well as increased markings at the left lung base. There is no demonstrated pleural abnormality. A left-sided dual-chamber pacemaker is seen. Normal mediastinum and albin. Normal visualized pulmonary arteries. Normal visualized aortic arch and descending thoracic aorta. Normal visualized thoracic spine. Normal visualized ribs, clavicles, and shoulders. There is no demonstrated abnormality of the visualized soft tissue structures of the upper abdomen. RAD/Chest 1 View (Portable) IMPRESSION: Stable bilateral increased markings in both lungs as described suggestive of scarring. Electronically Signed: Hieu Garcia MD at 15:24 EDT ,
[2023-11-12 15:02] LABS: Absolute Lymphocyte Count 1.69 X10^3/uL (0.83-4.51); Absolute Neutrophil Count 12.1 X10^3/uL (2.0-7.7); Basophil# 0.05 X10^3/uL; Basophil% 0.3 % (0-1); Eosinophil# 0.11 X10^3/uL; Eosinophils% 0.7 % (0-5); Hematocrit 37.1 % (40-54); Hemoglobin 10.5 g/dL (13.0-16.5); Lymphocyte # 1.69 X10^3/ul (0.83-4.51); Lymphocyte % 11.5 % (19-41); Mean Corp Hgb Conc 28.3 g/dL (32-36); Mean Corpuscular Hgb 24.5 pg (27.0-32.0); Mean Corpuscular Volume 86.5 fL (80-94); Mean Platelet Vol. 9.6 fl (6.2-12.0); Monocyte# 0.66 X10^3/uL; Monocyte% 4.5 % (0-10); NRBC Flagged by Analyzer 0 % (0-5); Neutrophil # 12.09 X10^3/uL (2.7-7.7); Neutrophil % 82.2 % (47-70); Platelet Count 284 K/mm3 (150-450); RBC Distribution Width CV 15.9 % (11.6-14.6); RBC Distribution Width SD 49.9 fl (35.1-43.9); Red Blood Count 4.29 M/mm3 (4.6-6.2); White Blood Count 14.7 K/mm3 (4.4-11.0)
[2023-11-12 15:12] LABS: Anion Gap 1 (5-15); BUN 13 mg/dL (7-18); BUN/Creat Ratio 10.1 RATIO (10-20); Chloride 101 mmol/L (98-107); Creatinine, Serum 1.29 mg/dL (0.70-1.30); EST Glomerular Filtration Rate 62 mL/min (>60); Est Glom Filt Rate - Afr Amer 75 mL/min (>60); Glucose 114 mg/dL (74-106); Potassium 3.8 mmol/L (3.5-5.1); Sodium Level 137 mmol/L (136-145); Troponin-I HS 12 pg/mL (3.0-78.0)
[2023-11-12 15:30] LABS: BNP,B-Type NATRIURETIC PEPTIDE 42.7 pg/mL (0-100)
[2023-11-12 15:37] VITALS: BP 144/78; PULSE 81; RESP 22; O2SAT 94
[2023-11-12 15:38] LABS: Lactic Acid 3.2 mmol/L (0.4-1.9)
[2023-11-12 15:48] VITALS: BMI 61.4
[2023-11-12] MEDS: Vancomycin HCl 2,000 MG in 0.9% Normal Saline (500mL Bag) 500 ML 250 MG IV (16:35)
[2023-11-12] MEDS: Clindamycin 600 MG/50 ML BAG 100 MG IV ×2 (16:36→22:57)
[2023-11-12 17:00] VITALS: BP 146/70; PULSE 84; RESP 15; O2SAT 97
[2023-11-12 17:57] VITALS: BP 176/57; PULSE 85; RESP 16; TEMP 36.9; O2SAT 97
[2023-11-12 18:25] VITALS: BP 151/58; PULSE 98; RESP 20; TEMP 36.7; O2SAT 97
[2023-11-12 18:29] VITALS: BMI 61.4
[2023-11-12 18:51] LABS: Reflex Lactate? Y
--- NOTE | 2023-11-12 18:55 | PCM.RX.CS ---
Consult Antibiotic Management Pharmacy has been consulted to manage selected antibiotic: Vancomycin Type of Intervention Type of Consult: New start Suspected Infection Suspected Infection: Skin/Soft tissue Prior Doses of Antibiotics Prior Doses of Antibiotics Received/Current Regimen: Vancomycin 2000 mg IV x 1 given 11/12/23 @ 1635 Labs Labs: Sodium 137 mmol/L (136-145) 11/12/23 14:36 Potassium 3.8 mmol/L (3.5-5.1) 11/12/23 14:36 Chloride 101 mmol/L (98-107) 11/12/23 14:36 Carbon Dioxide 35.0 mmol/L (21.0-32.0) H 11/12/23 14:36 Anion Gap 1 (5-15) L 11/12/23 14:36 BUN 13 mg/dL (7-18) 11/12/23 14:36 Creatinine 1.29 mg/dL (0.70-1.30) 11/12/23 14:36 Est GFR (MDRD) Af Amer 75 mL/min (>60) 11/12/23 14:36 Est GFR (MDRD) Non-Af 62 mL/min (>60) 11/12/23 14:36 BUN/Creatinine Ratio 10.1 RATIO (10-20) 11/12/23 14:36 Glucose 114 mg/dL (74-106) H 11/12/23 14:36 Dosing Weight Weight used for dosin lb 2.806 oz Estimated Creatinine Clearance Estimated Creatinine Clearance: ~123 Goal Trough Goal Trough: 15-20 mcg/mL Pharmacy Plan for Drug Dosing Pharmacy Plan for Drug Dosing: Vancomycin 2000 mg IV x 1 given 11/12/23 @ 1635, subsequent dosing with 1500 mg IV Q8H. Pharmacy Service will continue to monitor and adjust dosing as required. Follow-Up Labs Follow-Up Labs: Trough: Vancomycin Date/Time Labs Ordered Labs to be done on [date and time ordered]: 11/13/23 @ 1630
--- NOTE | 2023-11-12 19:26 | HP.PCM.HOS_ITS ---
HPI - General General Date of Admission: 11/12/23 HPI Narrative CAYLA GRANADOS, is a 53 M who presents to the hospital with scrotal pain and swelling over the last week or so. He also has edema in his legs that is starting to get more red than normal. He does wear compression stockings for his lymphedema. He is on multiple doses of Lasix as well as as needed Bumex because of it. He has been Bactrim for history of staph infections and his infectious disease doctor in [place] added Keflex yesterday to no avail. He comes in with a leukocytosis of 14.7 though because of his rheumatoid arthritis, he does tend to have a little bit of an elevated white count at all times. CT scan was done in the ER that described possible phlegmon versus early fluid collections in the perineum/scrotal area. He does not appear septic on admission. [facility] Medical History (Updated 11/12/23 @ 18:34 by Hedy Khan) Abscess of deep perineal space Anemia Anemia Anxiety Atherosclerotic heart disease of [place] coronary artery without angina pectoris Atrial fibrillation Chest pain Chronic hypoxemic respiratory failure Chronic pain Chronic prescription benzodiazepine use Chronic steroid use Colon polyps COPD (chronic obstructive pulmonary disease) Depression Depression Diabetes DVT (deep venous thrombosis) Essential hypertension Family history of premature CAD GERD (gastroesophageal reflux disease) Goiter History of Chanel's gangrene HLD (hyperlipidemia) Hypothyroidism Hypothyroidism IBS (irritable bowel syndrome) Intertrigo Kidney stones Left against medical advice Myocardial infarct Non-healing surgical wound NSTEMI, initial episode of care On home oxygen therapy BERT (obstructive sleep apnea) Pacemaker Pain in scapula PTSD (post-traumatic stress disorder) Rheumatoid arthritis Sleep apnea Smoker Super obesity Superficial thrombophlebitis of leg Thrush Type 2 diabetes mellitus Ulcer of scrotum Home Medications diazepam 10 mg tablet (Valium) 5 mg PO 4X/DAY PRN Anxiety 03/03/16 [History Last Taken 08/15/22] albuterol sulfate 90 mcg/actuation aerosol inhaler (Ventolin HFA) 1 - 2 puff inhalation UD PRN Sob &/Or Wheezing 07/07/20 [History Last Taken 08/11/22] ascorbic acid (vitamin C) 500 mg capsule 500 mg PO DAILY SUPPLEMENT 07/07/20 [History Last Taken 03/26/23] gabapentin 100 mg capsule 100 mg PO QHS PRN neuropathy 07/07/20 [History Last Taken 03/25/23] omeprazole 20 mg capsule,delayed release 20 mg PO BID ACID REFLUX 07/07/20 [History Last Taken 03/26/23] glipizide 2.5 mg tablet, extended release 24 hr 2.5 mg PO BID DIABETES 09/06/21 [History Last Taken 03/26/23] ammonium lactate 12 % topical cream 1 applic topical BID LEGS 08/16/22 [History Last Taken 03/26/23] aspirin 81 mg tablet,delayed release 81 mg PO DAILY HEART HEALTH 08/16/22 [History Last Taken 03/26/23] atorvastatin 40 mg tablet 40 mg PO QHS CHOLESTEROL 08/16/22 [History Last Taken 03/25/23] bumetanide 1 mg tablet 1 mg PO DAILY PRN FLUID 08/16/22 [History Last Taken Unknown] dabigatran etexilate 150 mg capsule (Pradaxa) 150 mg PO BID BLOOD THINNER 08/16/22 [History Last Taken 03/26/23] fluticasone propionate 50 mcg/actuation nasal spray,suspension 2 spray intranasal DAILY PRN Nasal Congestion 08/16/22 [History Last Taken Unknown] levothyroxine 150 mcg tablet 150 mcg PO DAILY THYROID 08/16/22 [History Last Taken 03/26/23] losartan 25 mg tablet 12.5 mg PO BID BLOOD PRESSURE 08/16/22 [History Last Taken 03/26/23] metoprolol tartrate 25 mg tablet 12.5 mg PO BID BLOOD PRESSURE 08/16/22 [History Last Taken 03/26/23] miconazole nitrate 2 % topical cream 1 applic topical BID FUNGAL INFECTION 08/16/22 [History Last Taken 03/26/23] nystatin 100,000 unit/gram topical powder (Nyamyc) 1 applic topical BID SKIN FOLDS 08/16/22 [History Last Taken 03/26/23] prednisone 10 mg tablet 10 mg PO BID STEROID 08/16/22 [History Last Taken 03/26/23] furosemide 20 mg tablet 80 mg PO DAILY 06/27/23 [History Last Taken Unknown] furosemide 40 mg tablet (Lasix) 40 mg PO 1700 fluid 06/27/23 [History Last Taken Unknown] levothyroxine 88 mcg tablet 88 mcg PO DAILY 06/27/23 [History Last Taken Unknown] Allergy/AdvReac Type Severity Reaction Status Date / Time Penicillins Allergy Hives Verified 11/12/23 13:38 red dye Allergy Hives Verified 11/12/23 13:38 etanercept [From Enbrel] AdvReac Swelling Verified 11/12/23 13:38 rivaroxaban [From Xarelto] AdvReac Nausea Verified 11/12/23 13:38 warfarin sodium AdvReac Nausea Verified 11/12/23 13:38 [From Coumadin] Family History Other Cancer Heart disease Kidney disease Surgical History History of coronary artery stent placement (03/25/21) Social History household members: family Smoking Status: Former smoker substance use type: does not use ROS Constitutional Constitutional: Denies chills, fatigue, fever(s) or malaise Eyes Eyes: Denies blurry vision ENT HEENT: Denies headache(s) or nasal discharge Cardiovascular Cardiovascular: Denies chest pain, dyspnea on exertion or syncope Respiratory/Chest Respiratory/Chest: Denies cough, shortness of breath at rest or shortness of breath with exertion Gastrointestinal Gastrointestinal: Denies constipation, diarrhea, nausea or vomiting Genitourinary Genitourinary: Reports scrotal pain and scrotal swelling; Denies dysuria Neurologic Neurologic: Denies focal weakness, numbness or tremor(s) Psychiatric Psychiatric: Denies anxiety or depression Vital Signs Vital Signs Vital Signs: 11/12/23 13:37 11/12/23 14:07 11/12/23 14:11 Temperature 98 F Temperature Source Temporal Pulse Rate 99 Respiratory Rate 22 H Respiratory Depth Normal Respiratory Pattern Normal Blood Pressure 142/77 H Blood Pressure Mean 98 Blood Pressure Source Blood Pressure Position Blood Pressure Location Pulse Ox 97 Oxygen Delivery Method Nasal Cannula Nasal Cannula Oxygen Flow Rate (L/min) 4 4 11/12/23 15:37 11/12/23 17:00 11/12/23 17:57 Temperature 98.5 F Temperature Source Pulse Rate 81 84 85 Respiratory Rate 22 H 15 16 Respiratory Depth Respiratory Pattern Blood Pressure 144/78 H 146/70 H 176/57 H Blood Pressure Mean 100 95 96 Blood Pressure Source Blood Pressure Position Blood Pressure Location Pulse Ox 94 97 97 Oxygen Delivery Method Nasal Cannula Oxygen Flow Rate (L/min) 2 11/12/23 18:25 Temperature 98.0 F Temperature Source Oral Pulse Rate 98 Respiratory Rate 20 H Respiratory Depth Respiratory Pattern Blood Pressure 151/58 H Blood Pressure Mean 89 Blood Pressure Source Monitor Blood Pressure Position Semi-Fowlers Blood Pressure Location Left Arm Pulse Ox 97 Oxygen Delivery Method Room Air Oxygen Flow Rate (L/min) Weight Weight: 466 lb 3.2 oz Body Mass Index (BMI) 61.4 Physical Exam Narrative General: Alert, Oriented x3, Cooperative, No apparent distress HEENT: Atraumatic, PERRLA, EOMI, Normocephalic Oral: Moist Mucosa Neck: Supple, No JVD Lungs: Diminished, Normal air movement, No rhonchi, No wheeze, No rales, limited by body habitus Cardiovascular: Regular rate, Regular Rhythm, Normal S1, Normal S2, No murmurs, limited by body habitus Abdomen: Soft, Non Tender, Non-Distended, No Hepato-splenomegaly, morbidly obese Extremities: Bilateral lymphedema, Capillary Refill Less than 3 Seconds Skin: Scrotal edema with cellulitic changes, tenderness to palpation. Left thigh edema and redness. Musculoskeletal: No Tenderness to Palpation of Joints or Extremities Neurological: No focal neurological deficits, Motor Exam 5/5 strength throughout, Sensory exam intact to light touch and pain Psych/Mental Status: Normal Affect, Appropriate Results Lab / Micro Data 11/12/23 14:36 11/12/23 14:36 Labs: Laboratory Results - last 24 hr 11/12/23 14:36: WBC 14.7 H, RBC 4.29 L, Hgb 10.5 L, Hct 37.1 L, MCV 86.5, MCH 24.5 L, MCHC 28.3 L, RDW Std Deviation 49.9 H, RDW Coeff of Kris 15.9 H, Plt Count 284, MPV 9.6, Immature Gran % (Auto) 0.800, Neut % (Auto) 82.2 H, Lymph % (Auto) 11.5 L, [place] % (Auto) 4.5, Eos % (Auto) 0.7, Baso % (Auto) 0.3, Absolute Neuts (auto) 12.1 H, Absolute Lymphs (auto) 1.69, Nucleated RBC % 0, Sodium 137, Potassium 3.8, Chloride 101, Carbon Dioxide 35.0 H, Anion Gap 1 L, BUN 13, Creatinine 1.29, Est GFR (MDRD) Af Amer 75, Est GFR (MDRD) Non-Af 62, BUN/Creatinine Ratio 10.1, Glucose 114 H, Lactic Acid 3.2 H*, Calcium 9.0, Troponin I High Sens 12, B-Natriuretic Peptide 42.7 Rhythm Strip Rhythm Strip: Sinus Rhythm Rate: 92 Ectopy: None Imaging Radiology Impression Abdomen/Pelvis CT 11/12/23 14:11 IMPRESSION: Inflammatory changes are seen in the perineum with 2 adjacent focal areas of the phlegmon/early fluid collections as described with evidence skin thickening along the medial aspect of the proximal thighs and subcutaneous edema. Diffuse scrotal thickening. No air is seen within this collection at this time. Follow-up recommended. Electronically Signed: Hieu Garcia MD at 15:22 EDT , Chest X-Ray 11/12/23 14:59 IMPRESSION: Stable bilateral increased markings in both lungs as described suggestive of scarring. Electronically Signed: Hieu Garcia MD at 15:24 EDT , Assessment & Plan Assessment/Plan (1) Cellulitis of scrotum: PLAN: Plan 1. Scrotal cellulitis with phlegmon/early abscess formation ? He does have a history of MRSA, will continue with Vanc, cefepime, clinda ? Will consult infectious disease ? While I did not consult urology at this time as there was not any obvious urological intervention necessary they were willing to intervene if the patient were to become septic and needed further intervention ? Blood cultures are pending ? No free air on CT scan 2. Essential HTN/HLD/bilateral lymphedema/nonobstructive coronary artery disease ? Will hold his diuretics secondary to his elevated lactic acid however given his edema and the fact that he is hemodynamically stable hold off on fluids as well and let him eat ? Will continue with his Lipitor as well as his aspirin but will hold his Pradaxa pending possible surgical intervention if necessary ? Continue with his home metoprolol ? We will monitor make adjustments as necessary 3. DM2/morbid obesity ? Discussed lifestyle modifications ? Continue with sliding scale insulin ? Accu-Cheks ACHS ? Will hold his home glipizide ? We will monitor make adjustments as necessary 4. GERD ? Stable ? Continue with PPI 5. Rheumatoid arthritis ? She is on prednisone 10 mg p.o. twice daily though he does take more depending on his symptoms ? Given his chronic steroid use we will continue on the steroids to prevent adrenal crisis given his cellulitis DVT: SCDs 75 minutes was spent on direct patient care, including documentation as well as chart review and collaboration with colleagues Charges/Coding Visit Charges Inpatient E&M: 28072 Init Hosp L3
[2023-11-12] MEDS: diazePAM 5 MG Tablet PO (21:03)
[2023-11-12] MEDS: Atorvastatin Calcium 40 MG Tablet PO (21:03)
[2023-11-12 21:04] VITALS: BP 149/70; PULSE 90
[2023-11-12] MEDS: Metoprolol Tartrate 25 MG Tablet 12.5 MG PO (21:04)
[2023-11-12] MEDS: Cefepime HCl 2 GM in 0.9% Normal Saline (100mL MB+) 100 ML IV (21:21)
[2023-11-12] MEDS: Pantoprazole Sodium 20 MG Tablet PO (21:29)
[2023-11-12 22:07] LABS: Bedside Glucose 169 mg/dL (74-106)
[2023-11-13] VITALS (7 sets, daily range): BP systolic 101–131; BP diastolic 52–65; PULSE 83–99; RESP 16–18; TEMP 36.1–36.8; O2SAT 96–99
[2023-11-13] MEDS: Vancomycin HCl 1,500 MG in 0.9% Normal Saline (500mL Bag) 500 ML 250 MG IV ×2 (00:42→08:46)
[2023-11-13] MEDS: Morphine 2 MG/ML Syringe IV ×3 (01:52→15:35)
[2023-11-13] MEDS: Levothyroxine 150 MCG Tablet PO (06:29)
[2023-11-13] MEDS: Levothyroxine 88 MCG Tablet PO (06:30)
[2023-11-13] MEDS: Clindamycin 600 MG/50 ML BAG 100 MG IV (06:36)
[2023-11-13 07:06] LABS: Bedside Glucose 121 mg/dL (74-106)
--- NOTE | 2023-11-13 07:35 | PCM.PN.HOSP ---
Reason for Visit Reason for Visit: Diagnoses Inflammatory disorders of scrotum (11/12/23) Objective Data Objective Data Vital Signs: Vital Signs Temp Pulse Resp BP Pulse Ox O2 Del Method O2 Flow Rate 97.9 F 88 18 131/52 H 96 Nasal Cannula 4 11/13/23 02:26 11/13/23 02:26 11/13/23 02:26 11/13/23 02:26 11/13/23 02:26 11/13/23 02:11/13/23 02:26 Oxygen Flow Rate (L/min) 4 Oxygen Delivery Method Nasal Cannula Weight: 466 lb 3.2 oz Body Mass Index (BMI) 61.4 Intake & Output: Intake and Output for Last 24 Hours 11/11/23 11/12/23 11/13/23 23:59 23:59 23:59 Intake Total 740 / 740 580 / 580 Output Total 700 / 700 Balance 740 / 340 -120 / -120 Lab / Micro Data 11/13/23 06:11 11/13/23 06:11 Labs: Laboratory Results - last 24 hr 11/12/23 14:36: WBC 14.7 H, RBC 4.29 L, Hgb 10.5 L, Hct 37.1 L, MCV 86.5, MCH 24.5 L, MCHC 28.3 L, RDW Std Deviation 49.9 H, RDW Coeff of Kris 15.9 H, Plt Count 284, MPV 9.6, Immature Gran % (Auto) 0.800, Neut % (Auto) 82.2 H, Lymph % (Auto) 11.5 L, [facility] % (Auto) 4.5, Eos % (Auto) 0.7, Baso % (Auto) 0.3, Absolute Neuts (auto) 12.1 H, Absolute Lymphs (auto) 1.69, Nucleated RBC % 0, Sodium 137, Potassium 3.8, Chloride 101, Carbon Dioxide 35.0 H, Anion Gap 1 L, BUN 13, Creatinine 1.29, Est GFR (MDRD) Af Amer 75, Est GFR (MDRD) Non-Af 62, BUN/Creatinine Ratio 10.1, Glucose 114 H, Lactic Acid 3.2 H*, Calcium 9.0, Troponin I High Sens 12, B-Natriuretic Peptide 42.7 11/12/23 19:37: Lactic Acid 2.0 11/12/23 21:26: POC Glucose 169 H 11/13/23 06:38: POC Glucose 121 H Radiography Diagnostic Testing: Radiology Impression Abdomen/Pelvis CT 11/12/23 14:11 IMPRESSION: Inflammatory changes are seen in the perineum with 2 adjacent focal areas of the phlegmon/early fluid collections as described with evidence skin thickening along the medial aspect of the proximal thighs and subcutaneous edema. Diffuse scrotal thickening. No air is seen within this collection at this time. Follow-up recommended. Electronically Signed: Hieu Garcia MD at 15:22 EDT , Chest X-Ray 11/12/23 14:59 IMPRESSION: Stable bilateral increased markings in both lungs as described suggestive of scarring. Electronically Signed: Hieu Garcia MD at 15:24 EDT , Rhythm Strip Rhythm Strip: Sinus Rhythm Rate: 92 Ectopy: None Physical Exam Narrative Seen and examined. Admitted with scrotal edema cellulitis along with chronic bilateral lower extremity edema, dyspnea on exertion Physical exam General: Alert, Oriented x3, Cooperative. super morbid obesity BMI 61.5 kg/m HEENT: Atraumatic, PERRLA, EOMI, Normocephalic Oral: No Gingival or Mucosal Lesions/ Ulcerations Neck: Supple, No JVD, Negative Carotid Bruits Chest wall/Lungs: Air entry diminished in bilateral lung bases. No crepitation/rhonchi Cardiovascular: Regular rate, Regular Rhythm, Normal S1, Normal S2, No M/G/R Abdomen: Bowel Sounds Present, Soft, Non Tender, Non-Distended : Scrotal edema with cellulitis and perineal region. No dysuria. No renal angle tenderness. No suprapubic tenderness. Extremities: Bilateral chronic lower extremity edema 3+. Capillary Refill Less than 3 Seconds Skin: Redness, tenderness and induration present on perineal region Musculoskeletal: No Tenderness to Palpation of Joints or Extremities Neurological: Cranial nerves II-XII grossly intact, DTR 2+/4. No acute focal neurological deficit. Psych/Mental Status: Flat affect. Assessment & Plan Assessment/Plan (1) Cellulitis of scrotum: PLAN: Plan 53-year-old gentleman with chronic edema of lower extremities getting worse for about a week came to ED for scrotal swelling and pain. Patient also dyspnea on exertion, mild orthopnea but no chest discomfort for several days. He is on prophylactic antibiotic because of history of MRSA and been on Bactrim for a while. Just started on cefdinir several days ago. Follows ID in [place]. 1. Scrotal cellulitis with phlegmon/early abscess formation: Patient admitted to [facility] floor. Had CT abdomen/pelvis without IV contrast showed inflammatory changes in the perineum with 2 focal areas of phlegmon/surrounding fluid collection. Urologist was consulted. Discussed with him and does not think any abscess or drainable fluid collection. No free air on CT scan. ? He does have a history of MRSA, continue with Vanc, cefepime, and clindamycin. ID is consulted and discussed with him. 2. Essential HTN/HLD/bilateral lymphedema/nonobstructive coronary artery disease and chronic HFpEF Echo in March 2023 ? Interpretation Summary The left ventricular ejection fraction is 65 %. The left atrium is moderately enlarged. The right atrium is mildly enlarged. The study was technically difficult with suboptimal images due to body habitus. It is suggestive of chronic HFpEF with enlarged atria. Diuretic to regimen from today evening. Given history of dyspnea on exertion heart failure will hold off any IV fluid. Continue Lipitor metoprolol. Resume Pradaxa. 3. DM2/morbid obesity ? Discussed lifestyle modifications ? Continue with sliding scale insulin ? hold his home glipizide. Accu-Chek before meals and at bedtime insulin coverage Humalog sliding scale. 4. GERD ? Stable ? Continue with PPI 5. Rheumatoid arthritis ? on prednisone 10 mg p.o. twice daily though he does take more depending on his symptoms ? Given his chronic steroid use, continue on the steroids to prevent adrenal crisis given his cellulitis DVT: SCDs. On Pradaxa. Laboratory Results 11/12/23 14:36: WBC 14.7 H, RBC 4.29 L, Hgb 10.5 L, Hct 37.1 L, MCV 86.5, MCH 24.5 L, MCHC 28.3 L, RDW Std Deviation 49.9 H, RDW Coeff of Kris 15.9 H, Plt Count 284, MPV 9.6, Immature Gran % (Auto) 0.800, Neut % (Auto) 82.2 H, Lymph % (Auto) 11.5 L, [facility] % (Auto) 4.5, Eos % (Auto) 0.7, Baso % (Auto) 0.3, Absolute Neuts (auto) 12.1 H, Absolute Lymphs (auto) 1.69, Nucleated RBC % 0, Sodium 137, Potassium 3.8, Chloride 101, Carbon Dioxide 35.0 H, Anion Gap 1 L, BUN 13, Creatinine 1.29, Est GFR (MDRD) Af Amer 75, Est GFR (MDRD) Non-Af 62, BUN/Creatinine Ratio 10.1, Glucose 114 H, Lactic Acid 3.2 H*, Calcium 9.0, Troponin I High Sens 12, B-Natriuretic Peptide 42.7 11/12/23 19:37: Lactic Acid 2.0 11/12/23 21:26: POC Glucose 169 H 11/13/23 06:38: POC Glucose 121 H Clinical Impression(s) from Imaging Studies Abdomen/Pelvis CT 11/12/23 14:11 IMPRESSION: Inflammatory changes are seen in the perineum with 2 adjacent focal areas of the phlegmon/early fluid collections as described with evidence skin thickening along the medial aspect of the proximal thighs and subcutaneous edema. Diffuse scrotal thickening. No air is seen within this collection at this time. Follow-up recommended. Electronically Signed: Hieu Garcia MD at 15:22 EDT , Chest X-Ray 11/12/23 14:59 IMPRESSION: Stable bilateral increased markings in both lungs as described suggestive of scarring. Electronically Signed: Hieu Garcia MD at 15:24 EDT , Charges/Coding Visit Charges Inpatient E&M: 62305 Subs Hosp L2
[2023-11-13 07:54] LABS: Absolute Lymphocyte Count 2.37 X10^3/uL (0.83-4.51); Basophil# 0.05 X10^3/uL; Basophil% 0.4 % (0-1); Eosinophil# 0.23 X10^3/uL; Eosinophils% 1.7 % (0-5); Hematocrit 35.8 % (40-54); Hemoglobin 10.3 g/dL (13.0-16.5); Lymphocyte # 2.37 X10^3/ul (0.83-4.51); Lymphocyte % 17.6 % (19-41); Mean Corp Hgb Conc 28.8 g/dL (32-36); Mean Corpuscular Hgb 24.9 pg (27.0-32.0); Mean Corpuscular Volume 86.7 fL (80-94); Mean Platelet Vol. 9.7 fl (6.2-12.0); Monocyte# 0.69 X10^3/uL; Monocyte% 5.1 % (0-10); NRBC Flagged by Analyzer 0 % (0-5); Neutrophil % 74.5 % (47-70); Platelet Count 265 K/mm3 (150-450); RBC Distribution Width SD 50.6 fl (35.1-43.9); Red Blood Count 4.13 M/mm3 (4.6-6.2); White Blood Count 13.4 K/mm3 (4.4-11.0)
--- NOTE | 2023-11-13 08:38 | PCM.CONS.U ---
Assessment & Plan Assessment/Plan (1) Cellulitis of scrotum: PLAN: Continue with IV antibiotics currently do not see abscess formation or phlegmon developing, it has always possible he could develop and later on if that is the case he would need surgical drainage but at this point IV antibiotics and medical management is the initial approach will continue to monitor. HPI Consult Data Date of Consult: 11/13/23 HPI Narrative Reason for Consultation: Scrotal cellulitis HPI Narrative: CAYLA GRANADOS, is a 53 M who presents with progressive cellulitis of the scrotum and perineal area on examination there is no fluctuance no evidence of drainage abscess he is tender and has some scrotal edema but again no focal area seen on exam today continue with IV antibiotics we will continue to monitor certainly if he develops an abscess that he may need to require surgical drainage discussed this with the patient today and was recommended IV antibiotics for the time being observation [facility] Medical History (Updated 11/12/23 @ 18:34 by Hedy Khan) Abscess of deep perineal space Anemia Anemia Anxiety Atherosclerotic heart disease of [place] coronary artery without angina pectoris Atrial fibrillation Chest pain Chronic hypoxemic respiratory failure Chronic pain Chronic prescription benzodiazepine use Chronic steroid use Colon polyps COPD (chronic obstructive pulmonary disease) Depression Depression Diabetes DVT (deep venous thrombosis) Essential hypertension Family history of premature CAD GERD (gastroesophageal reflux disease) Goiter History of Chanel's gangrene HLD (hyperlipidemia) Hypothyroidism Hypothyroidism IBS (irritable bowel syndrome) Intertrigo Kidney stones Left against medical advice Myocardial infarct Non-healing surgical wound NSTEMI, initial episode of care On home oxygen therapy BERT (obstructive sleep apnea) Pacemaker Pain in scapula PTSD (post-traumatic stress disorder) Rheumatoid arthritis Sleep apnea Smoker Super obesity Superficial thrombophlebitis of leg Thrush Type 2 diabetes mellitus Ulcer of scrotum Home Medications diazepam 10 mg tablet (Valium) 5 mg PO 4X/DAY PRN Anxiety 03/03/16 [History Last Taken 08/15/22] albuterol sulfate 90 mcg/actuation aerosol inhaler (Ventolin HFA) 1 - 2 puff inhalation UD PRN Sob &/Or Wheezing 07/07/20 [History Last Taken 08/11/22] ascorbic acid (vitamin C) 500 mg capsule 500 mg PO DAILY SUPPLEMENT 07/07/20 [History Last Taken 03/26/23] gabapentin 100 mg capsule 100 mg PO QHS PRN neuropathy 07/07/20 [History Last Taken 03/25/23] omeprazole 20 mg capsule,delayed release 20 mg PO BID ACID REFLUX 07/07/20 [History Last Taken 03/26/23] glipizide 2.5 mg tablet, extended release 24 hr 2.5 mg PO BID DIABETES 09/06/21 [History Last Taken 03/26/23] ammonium lactate 12 % topical cream 1 applic topical BID LEGS 08/16/22 [History Last Taken 03/26/23] aspirin 81 mg tablet,delayed release 81 mg PO DAILY HEART HEALTH 08/16/22 [History Last Taken 03/26/23] atorvastatin 40 mg tablet 40 mg PO QHS CHOLESTEROL 08/16/22 [History Last Taken 03/25/23] bumetanide 1 mg tablet 1 mg PO DAILY PRN FLUID 08/16/22 [History Last Taken Unknown] dabigatran etexilate 150 mg capsule (Pradaxa) 150 mg PO BID BLOOD THINNER 08/16/22 [History Last Taken 03/26/23] fluticasone propionate 50 mcg/actuation nasal spray,suspension 2 spray intranasal DAILY PRN Nasal Congestion 08/16/22 [History Last Taken Unknown] levothyroxine 150 mcg tablet 150 mcg PO DAILY THYROID 08/16/22 [History Last Taken 03/26/23] losartan 25 mg tablet 12.5 mg PO BID BLOOD PRESSURE 08/16/22 [History Last Taken 03/26/23] metoprolol tartrate 25 mg tablet 12.5 mg PO BID BLOOD PRESSURE 08/16/22 [History Last Taken 03/26/23] miconazole nitrate 2 % topical cream 1 applic topical BID FUNGAL INFECTION 08/16/22 [History Last Taken 03/26/23] nystatin 100,000 unit/gram topical powder ([facility]) 1 applic topical BID SKIN FOLDS 08/16/22 [History Last Taken 03/26/23] prednisone 10 mg tablet 10 mg PO BID STEROID 08/16/22 [History Last Taken 03/26/23] furosemide 20 mg tablet 80 mg PO DAILY 06/27/23 [History Last Taken Unknown] furosemide 40 mg tablet (Lasix) 40 mg PO 1700 fluid 06/27/23 [History Last Taken Unknown] levothyroxine 88 mcg tablet 88 mcg PO DAILY 06/27/23 [History Last Taken Unknown] Allergy/AdvReac Type Severity Reaction Status Date / Time Penicillins Allergy Hives Verified 11/12/23 13:38 red dye Allergy Hives Verified 11/12/23 13:38 etanercept [From Enbrel] AdvReac Swelling Verified 11/12/23 13:38 rivaroxaban [From Xarelto] AdvReac Nausea Verified 11/12/23 13:38 warfarin sodium AdvReac Nausea Verified 11/12/23 13:38 [From Coumadin] Family History Other Cancer Heart disease Kidney disease Surgical History History of coronary artery stent placement (03/25/21) Social History household members: family Smoking Status: Former smoker substance use type: does not use Physical Exam Narrative Obese male, penis normal, testicles and scrotum swollen slightly tender in the perineal area. No abscess appreciated Const alert and oriented x3 General Appearance: cooperative HEENT normocephalic, head/scalp atraumatic, EAC's normal and TM's normal bilaterally Eyes PERRL and EOMs intact bilaterally Pupil: sluggish Neck no lymphadenopathy, supple and no JVD General: trachea midline Lymph Lymphatic: no lymphadenopathy noted, lymphedema and lymphadenopathy Resp normal respiratory effort, normal air movement and clear to auscultation bilaterally Cardio regular rate, regular rhythm and peripheral pulses 2+ throughout GI soft to palpation, non-tender and non-distended Extremity normal capillary refill and no clubbing, cyanosis or edema General Extremity: no tenderness to palpation of joints or extremities Skin no rashes or lesions noted General Skin Exam: turgor normal Lesions: no lesions Rashes: no rashes Neuro CN's II-XII intact bilaterally Speech: speech normal Motor Exam: strength 5/5 throughout; Negative for general weakness Psych thought process normal, cooperative and affect normal Appearance: appropriate Lab / Micro Data 11/13/23 06:11 11/12/23 14:36 Labs: Laboratory Results - last 24 hr 11/12/23 14:36: WBC 14.7 H, RBC 4.29 L, Hgb 10.5 L, Hct 37.1 L, MCV 86.5, MCH 24.5 L, MCHC 28.3 L, RDW Std Deviation 49.9 H, RDW Coeff of Kris 15.9 H, Plt Count 284, MPV 9.6, Immature Gran % (Auto) 0.800, Neut % (Auto) 82.2 H, Lymph % (Auto) 11.5 L, [place] % (Auto) 4.5, Eos % (Auto) 0.7, Baso % (Auto) 0.3, Absolute Neuts (auto) 12.1 H, Absolute Lymphs (auto) 1.69, Nucleated RBC % 0, Sodium 137, Potassium 3.8, Chloride 101, Carbon Dioxide 35.0 H, Anion Gap 1 L, BUN 13, Creatinine 1.29, Est GFR (MDRD) Af Amer 75, Est GFR (MDRD) Non-Af 62, BUN/Creatinine Ratio 10.1, Glucose 114 H, Lactic Acid 3.2 H*, Calcium 9.0, Troponin I High Sens 12, B-Natriuretic Peptide 42.7 11/12/23 19:37: Lactic Acid 2.0 11/12/23 21:26: POC Glucose 169 H 11/13/23 06:11: WBC 13.4 H, RBC 4.13 L, Hgb 10.3 L, Hct 35.8 L, MCV 86.7, MCH 24.9 L, MCHC 28.8 L, RDW Std Deviation 50.6 H, RDW Coeff of Kris 16.0 H, Plt Count 265, MPV 9.7, Immature Gran % (Auto) 0.700, Neut % (Auto) 74.5 H, Lymph % (Auto) 17.6 L, [place] % (Auto) 5.1, Eos % (Auto) 1.7, Baso % (Auto) 0.4, Absolute Neuts (auto) 10.0 H, Absolute Lymphs (auto) 2.37, Nucleated RBC % 0 11/13/23 06:38: POC Glucose 121 H Rhythm Strip Rhythm Strip: Sinus Rhythm Rate: 92 Ectopy: None Imaging Radiology Impression Abdomen/Pelvis CT 11/12/23 14:11 IMPRESSION: Inflammatory changes are seen in the perineum with 2 adjacent focal areas of the phlegmon/early fluid collections as described with evidence skin thickening along the medial aspect of the proximal thighs and subcutaneous edema. Diffuse scrotal thickening. No air is seen within this collection at this time. Follow-up recommended. Electronically Signed: Hieu Garcia MD at 15:22 EDT , Chest X-Ray 11/12/23 14:59 IMPRESSION: Stable bilateral increased markings in both lungs as described suggestive of scarring. Electronically Signed: Hieu Garcia MD at 15:24 EDT ,
[2023-11-13 08:46] LABS: Anion Gap 4 (5-15); BUN 13 mg/dL (7-18); BUN/Creat Ratio 11.5 RATIO (10-20); Calcium,Total 8.4 mg/dL (8.5-10.1); Chloride 104 mmol/L (98-107); Creatinine, Serum 1.13 mg/dL (0.70-1.30); EST Glomerular Filtration Rate 72 mL/min (>60); Est Glom Filt Rate - Afr Amer 87 mL/min (>60); Estimated Creatinine Clearance 140.08 ml/min; Glucose 111 mg/dL (74-106); Potassium 3.5 mmol/L (3.5-5.1); Sodium Level 138 mmol/L (136-145)
[2023-11-13] MEDS: predniSONE 10 MG Tablet PO ×2 (08:47→17:09)
[2023-11-13] MEDS: diazePAM 5 MG Tablet PO (08:58)
[2023-11-13] MEDS: Metoprolol Tartrate 25 MG Tablet 12.5 MG PO ×2 (10:02→22:05)
[2023-11-13] MEDS: Aspirin E.C. 81 MG Tablet PO (10:03)
[2023-11-13] MEDS: Pantoprazole Sodium 20 MG Tablet PO ×2 (10:03→22:08)
[2023-11-13] MEDS: Cefepime HCl 2 GM in 0.9% Normal Saline (100mL MB+) 100 ML IV ×2 (12:33→21:59)
--- NOTE | 2023-11-13 13:15 | CASEMGMT ---
Addendum entered by Jung Cassidy 11/13/23 18:26: STANISLAW ANSARI attempted to complete assessment around 2:30 PM. Pt had visitors @ bedside and asked STANISLAW ANSARI to return. STANISLAW ANSARI back to room @ 4 PM and assessment completed. Discussed discharge plan. Pt states he would like to discharge home and he would like [facility] again at discharge. He declines wanting list of other HHC options unless [facility] unable to accept him. Order placed for [facility] SN and PT/OT. Referral sent to [facility] by WILLIS Medrano via [employer] and this STANISLAW ANSARI sent HHC order via [employer]. Noted they responded stating they are not able to accept pt d/t care needs exceed current capacity. Pt will need notified and will need list of other HHC options. E-mail sent to STANISLAW ANSARI, Rianna, re: need for f/u on Thu and also to Ida Urias RN CM, for possible need of f/u on Thursday if pt discharges over the weekend. Original Note: RN?CM?[employer]?CM?to room to meet with patient for initial transition planning/care coordination?assessment.?RN?CM?introduced self and role at [facility].? Pt voices understanding and consents to?assessment?at this time.? Pt resting in bed in no distress at this time.? Pt is A/O at this time and answers all questions appropriately.?? Care providers, pharmacy, and demographics verified/updated at this time. PCP: Dr Norris Specialists: Dr Lynch, ID in [place] Preferred Pharmacy: [facility] Insurance: [facility] Prescription Benefit: yes LNOK: mother, son, daughter Living Arrangements: Patient lives with mother in a mobile home with chair lift or 5 steps and railing. Patient states he is independent at home w/ADL's but states it takes him a long time to complete tasks, such as bathing/dressing self (takes about an hour). Pt has an aide from [place] that comes 4 x's/week (30 hrs/week) and he has a CM, Kamala Bills (PH: [phone]). Dolly PEDRO, made aware. Transportation: self, adult children DME: Patient has shower chair, cane, walker, grab bars, nebulizer, pulse ox, scooter, home oxygen through [employer] at 4 lpm continuous with portability, patient states he has portable tank with him from home. SNF/HHC: No hx of SNF. Has had [facility] in the past. Dr Woods came into room to talk w/pt before assessment completed. Pt made aware RN CM would return to complete assessment. PLAN:??TBD. Karol BSN?RN?CM
--- NOTE | 2023-11-13 13:44 | PCM.CONS.GEN ---
Assessment & Plan Assessment/Plan (1) Cellulitis of scrotum: PLAN: No sign of grecia's. Will stop clinda. Cont vanc/cefepime, will add flagyl. Urology following. Reports hives with PCN, but has tolerated amox and cefdinir without issue. Plan for discharge will likely be one week po doxy 100mg bid and augmentin 875mg bid. Will follow, thank you (2) Edema of both lower legs: HPI Consult Data Date of Consult: 11/13/23 HPI Narrative Reason for Consultation: scrotal cellulitis HPI Narrative: CAYLA GRANADOS, is a 53 M with h/o obesity, chronic edema, recurrent scrotal infections who follows with Dr. Breen with ID, developed worsening scrotal pain, swelling, and redness over past week. No known inciting events. Was started on po bactrim and cefdinir, but sx worsened. No fever or chills. Came to ED, started on vanc/cefepime/clinda, seen by urology. Feeling a little better, pain is mild/moderate. Some upset stomach with abx. Full ROS performed and neg except as noted above. [facility] Medical History Abscess of deep perineal space Anemia Anemia Anxiety Atherosclerotic heart disease of [place] coronary artery without angina pectoris Atrial fibrillation Chest pain Chronic hypoxemic respiratory failure Chronic pain Chronic prescription benzodiazepine use Chronic steroid use Colon polyps COPD (chronic obstructive pulmonary disease) Depression Depression Diabetes DVT (deep venous thrombosis) Essential hypertension Family history of premature CAD GERD (gastroesophageal reflux disease) Goiter History of Grecia's gangrene HLD (hyperlipidemia) Hypothyroidism Hypothyroidism IBS (irritable bowel syndrome) Intertrigo Kidney stones Left against medical advice Myocardial infarct Non-healing surgical wound NSTEMI, initial episode of care On home oxygen therapy BERT (obstructive sleep apnea) Pacemaker Pain in scapula PTSD (post-traumatic stress disorder) Rheumatoid arthritis Sleep apnea Smoker Super obesity Superficial thrombophlebitis of leg Thrush Type 2 diabetes mellitus Ulcer of scrotum Home Medications diazepam 10 mg tablet (Valium) 5 mg PO 4X/DAY PRN Anxiety 03/03/16 [History Last Taken 08/15/22] albuterol sulfate 90 mcg/actuation aerosol inhaler (Ventolin HFA) 1 - 2 puff inhalation UD PRN Sob &/Or Wheezing 07/07/20 [History Last Taken 08/11/22] ascorbic acid (vitamin C) 500 mg capsule 500 mg PO DAILY SUPPLEMENT 07/07/20 [History Last Taken 03/26/23] gabapentin 100 mg capsule 100 mg PO QHS PRN neuropathy 07/07/20 [History Last Taken 03/25/23] omeprazole 20 mg capsule,delayed release 20 mg PO BID ACID REFLUX 07/07/20 [History Last Taken 03/26/23] glipizide 2.5 mg tablet, extended release 24 hr 2.5 mg PO BID DIABETES 09/06/21 [History Last Taken 03/26/23] ammonium lactate 12 % topical cream 1 applic topical BID LEGS 08/16/22 [History Last Taken 03/26/23] aspirin 81 mg tablet,delayed release 81 mg PO DAILY HEART HEALTH 08/16/22 [History Last Taken 03/26/23] atorvastatin 40 mg tablet 40 mg PO QHS CHOLESTEROL 08/16/22 [History Last Taken 03/25/23] bumetanide 1 mg tablet 1 mg PO DAILY PRN FLUID 08/16/22 [History Last Taken Unknown] dabigatran etexilate 150 mg capsule (Pradaxa) 150 mg PO BID BLOOD THINNER 08/16/22 [History Last Taken 03/26/23] fluticasone propionate 50 mcg/actuation nasal spray,suspension 2 spray intranasal DAILY PRN Nasal Congestion 08/16/22 [History Last Taken Unknown] levothyroxine 150 mcg tablet 150 mcg PO DAILY THYROID 08/16/22 [History Last Taken 03/26/23] losartan 25 mg tablet 12.5 mg PO BID BLOOD PRESSURE 08/16/22 [History Last Taken 03/26/23] metoprolol tartrate 25 mg tablet 12.5 mg PO BID BLOOD PRESSURE 08/16/22 [History Last Taken 03/26/23] miconazole nitrate 2 % topical cream 1 applic topical BID FUNGAL INFECTION 08/16/22 [History Last Taken 03/26/23] nystatin 100,000 unit/gram topical powder ([facility]) 1 applic topical BID SKIN FOLDS 08/16/22 [History Last Taken 03/26/23] prednisone 10 mg tablet 10 mg PO BID STEROID 08/16/22 [History Last Taken 03/26/23] furosemide 20 mg tablet 80 mg PO DAILY 06/27/23 [History Last Taken Unknown] furosemide 40 mg tablet (Lasix) 40 mg PO 1700 fluid 06/27/23 [History Last Taken Unknown] levothyroxine 88 mcg tablet 88 mcg PO DAILY 06/27/23 [History Last Taken Unknown] Allergy/AdvReac Type Severity Reaction Status Date / Time Penicillins Allergy Hives Verified 11/12/23 13:38 red dye Allergy Hives Verified 11/12/23 13:38 etanercept [From Enbrel] AdvReac Swelling Verified 11/12/23 13:38 rivaroxaban [From Xarelto] AdvReac Nausea Verified 11/12/23 13:38 warfarin sodium AdvReac Nausea Verified 11/12/23 13:38 [From Coumadin] Family History Other Cancer Heart disease Kidney disease Surgical History History of coronary artery stent placement (03/25/21) Social History household members: family Smoking Status: Former smoker substance use type: does not use Physical Exam Const alert, oriented x3 and no apparent distress General Appearance: cooperative HEENT normocephalic and head/scalp atraumatic Eyes PERRL and EOMs intact bilaterally Neck supple and No nodes Resp normal air movement and clear to auscultation bilaterally Cardio regular rate and regular rhythm GI soft to palpation, non-tender and non-distended Extremity General Extremity: edema Skin Skin Narrative: scrotal swelling, redness, tenderness Neuro CN's II-XII intact bilaterally Lab / Micro Data Attestation: I reviewed the patient's lab results. 11/13/23 06:11 11/13/23 06:11 Labs: Laboratory Results - last 24 hr 11/12/23 14:36: WBC 14.7 H, RBC 4.29 L, Hgb 10.5 L, Hct 37.1 L, MCV 86.5, MCH 24.5 L, MCHC 28.3 L, RDW Std Deviation 49.9 H, RDW Coeff of Kris 15.9 H, Plt Count 284, MPV 9.6, Immature Gran % (Auto) 0.800, Neut % (Auto) 82.2 H, Lymph % (Auto) 11.5 L, [place] % (Auto) 4.5, Eos % (Auto) 0.7, Baso % (Auto) 0.3, Absolute Neuts (auto) 12.1 H, Absolute Lymphs (auto) 1.69, Nucleated RBC % 0, Sodium 137, Potassium 3.8, Chloride 101, Carbon Dioxide 35.0 H, Anion Gap 1 L, BUN 13, Creatinine 1.29, Est GFR (MDRD) Af Amer 75, Est GFR (MDRD) Non-Af 62, BUN/Creatinine Ratio 10.1, Glucose 114 H, Lactic Acid 3.2 H*, Calcium 9.0, Troponin I High Sens 12, B-Natriuretic Peptide 42.7 11/12/23 19:37: Lactic Acid 2.0 11/12/23 21:26: POC Glucose 169 H 11/13/23 06:11: WBC 13.4 H, RBC 4.13 L, Hgb 10.3 L, Hct 35.8 L, MCV 86.7, MCH 24.9 L, MCHC 28.8 L, RDW Std Deviation 50.6 H, RDW Coeff of Kris 16.0 H, Plt Count 265, MPV 9.7, Immature Gran % (Auto) 0.700, Neut % (Auto) 74.5 H, Lymph % (Auto) 17.6 L, [place] % (Auto) 5.1, Eos % (Auto) 1.7, Baso % (Auto) 0.4, Absolute Neuts (auto) 10.0 H, Absolute Lymphs (auto) 2.37, Nucleated RBC % 0, Sodium 138, Potassium 3.5, Chloride 104, Carbon Dioxide 30.0, Anion Gap 4 L, BUN 13, Creatinine 1.13, Estim Creat Clear Calc 140.08, Est GFR (MDRD) Af Amer 87, Est GFR (MDRD) Non-Af 72, BUN/Creatinine Ratio 11.5, Glucose 111 H, Calcium 8.4 L 11/13/23 06:38: POC Glucose 121 H Rhythm Strip Rhythm Strip: Sinus Rhythm Rate: 92 Ectopy: None Imaging Radiology Impression Abdomen/Pelvis CT 11/12/23 14:11 IMPRESSION: Inflammatory changes are seen in the perineum with 2 adjacent focal areas of the phlegmon/early fluid collections as described with evidence skin thickening along the medial aspect of the proximal thighs and subcutaneous edema. Diffuse scrotal thickening. No air is seen within this collection at this time. Follow-up recommended. Electronically Signed: Hieu Garcia MD at 15:22 EDT , Chest X-Ray 11/12/23 14:59 IMPRESSION: Stable bilateral increased markings in both lungs as described suggestive of scarring. Electronically Signed: Hieu Garcia MD at 15:24 EDT ,
[2023-11-13] MEDS: metroNIDAZOLE 500 MG Tablet PO ×2 (15:26→22:08)
[2023-11-13] MEDS: Ascorbic Acid 500 MG Tablet PO (15:27)
--- NOTE | 2023-11-13 16:56 | CASEMGMT ---
Social Work Pt has services through the [place] [employer] [place] [facility]. Phone call to pt [facility] [employer] Supervisor Kamala Bhatia [phone]. VM left for Kamala notifying of pt hospitalization. ULISES Layton
[2023-11-13] MEDS: Vancomycin Trough/Random Due 1 LAB MC (17:00)
[2023-11-13] MEDS: Furosemide 40 MG Tablet PO (17:09)
--- NOTE | 2023-11-13 17:30 | PCM.RX.CS ---
Consult Antibiotic Management Pharmacy has been consulted to manage selected antibiotic: Vancomycin Type of Intervention Type of Consult: Follow-up Labs Labs: Sodium 138 mmol/L (136-145) 11/13/23 06:11 Potassium 3.5 mmol/L (3.5-5.1) 11/13/23 06:11 Chloride 104 mmol/L (98-107) 11/13/23 06:11 Carbon Dioxide 30.0 mmol/L (21.0-32.0) 11/13/23 06:11 Anion Gap 4 (5-15) L 11/13/23 06:11 BUN 13 mg/dL (7-18) 11/13/23 06:11 Creatinine 1.13 mg/dL (0.70-1.30) 11/13/23 06:11 Est GFR (MDRD) Af Amer 87 mL/min (>60) 11/13/23 06:11 Est GFR (MDRD) Non-Af 72 mL/min (>60) 11/13/23 06:11 BUN/Creatinine Ratio 11.5 RATIO (10-20) 11/13/23 06:11 Glucose 111 mg/dL (74-106) H 11/13/23 06:11 Vancomycin Trough 22.0 ug/mL (5.0-15.0) H 11/13/23 16:24 Goal Trough Goal Trough: 15-20 mcg/mL Pharmacy Plan for Drug Dosing Pharmacy Plan for Drug Dosing: VANCOMYCIN LEVEL RECEIVED Current Vancomycin Dose: 1500 MG IV Q8hr Number of Doses Received: 3 Vancomycin Level: 22 Hours Since Last Dose: 7.5hr Renal Function: 1.13 Renal Function Trend: stable Vancomycin Plan/Comments: The patient had a vancomycin trough drawn which resulted in a value of 22 (goal 15-20). Since trough is >20, will hold subsequent doses of vancomycin and restart once a trough is <20. Pending Level: *RANDOM* level 11/14/23 @0100 Pharmacy Service will continue to monitor and adjust dosing as required.
[2023-11-13] MEDS: Atorvastatin Calcium 40 MG Tablet PO (22:05)
[2023-11-13] MEDS: Dabigatran Etexilate Mesylate 150 MG Capsule PO (22:09)
[2023-11-13] MEDS: Menthol/Lanolin/Calamine/Znox 113 GM Tube 1 APPLIC TOPICAL (22:16)
[2023-11-13] MEDS: Nystatin Powder 15gm Bottle 1 APPLIC TOPICAL (22:16)
--- NOTE | 2023-11-13 22:49 | NURSING ---
Pt refused blood sugar check, insulin, and stool softners.
[2023-11-13] MEDS: 0.9% Normal Saline (500mL Bag) 500 ML 15 ML IV (23:49)
[2023-11-14] VITALS (9 sets, daily range): BP systolic 116–139; BP diastolic 49–109; PULSE 75–108; RESP 16–20; TEMP 36.5–36.8; O2SAT 94–99
[2023-11-14 02:08] LABS: Vancomycin, Random Level 13.5 ug/mL (0.0-15.0)
--- NOTE | 2023-11-14 02:31 | PHA.PHARE_ITS ---
Consult Antibiotic Management Pharmacy has been consulted to manage selected antibiotic: Vancomycin Type of Intervention Type of Consult: Follow-up Suspected Infection Suspected Infection: Skin/Soft tissue Labs Labs: Sodium 138 mmol/L (136-145) 11/13/23 06:11 Potassium 3.5 mmol/L (3.5-5.1) 11/13/23 06:11 Chloride 104 mmol/L (98-107) 11/13/23 06:11 Carbon Dioxide 30.0 mmol/L (21.0-32.0) 11/13/23 06:11 Anion Gap 4 (5-15) L 11/13/23 06:11 BUN 13 mg/dL (7-18) 11/13/23 06:11 Creatinine 1.13 mg/dL (0.70-1.30) 11/13/23 06:11 Est GFR (MDRD) Af Amer 87 mL/min (>60) 11/13/23 06:11 Est GFR (MDRD) Non-Af 72 mL/min (>60) 11/13/23 06:11 BUN/Creatinine Ratio 11.5 RATIO (10-20) 11/13/23 06:11 Glucose 111 mg/dL (74-106) H 11/13/23 06:11 Vancomycin Trough 22.0 ug/mL (5.0-15.0) H 11/13/23 16:24 Random Vancomycin 13.5 ug/mL (0.0-15.0) 11/14/23 01:13 Dosing Weight Weight used for dosin kg Estimated Creatinine Clearance Estimated Creatinine Clearance: 140 Goal Trough Goal Trough: 15-20 mcg/mL Pharmacy Plan for Drug Dosing Pharmacy Plan for Drug Dosing: Vancomycin random level of 13.5, drawn 16.5hrs post-dose, was back below 20. Dosing will be resumed. Per dosing calculator, a [place] dose [place] 1750mg q12h should give an estimated trough of 16.1. A trough level will be drawn prior to the fourth dose of the new regimen. Pharmacy Service will continue to monitor and adjust dosing as required. Follow-Up Labs Follow-Up Labs: Trough: Vancomycin Date/Time Labs Ordered Labs to be done on [date and time ordered]: 11/15/23 @1433
[2023-11-14] MEDS: Vancomycin HCl 1,750 MG in 0.9% Normal Saline (500mL Bag) 500 ML 250 MG IV ×2 (02:52→15:39)
[2023-11-14] MEDS: metroNIDAZOLE 500 MG Tablet PO ×3 (05:50→22:35)
[2023-11-14] MEDS: Levothyroxine 88 MCG Tablet PO (05:50)
[2023-11-14] MEDS: Levothyroxine 150 MCG Tablet PO (05:50)
[2023-11-14] MEDS: predniSONE 10 MG Tablet PO ×2 (08:00→17:21)
[2023-11-14] MEDS: Pantoprazole Sodium 20 MG Tablet PO ×2 (08:00→22:27)
[2023-11-14] MEDS: Metoprolol Tartrate 25 MG Tablet 12.5 MG PO ×2 (08:00→22:25)
[2023-11-14] MEDS: Aspirin E.C. 81 MG Tablet PO (08:02)
[2023-11-14] MEDS: Dabigatran Etexilate Mesylate 150 MG Capsule PO ×2 (08:02→22:27)
[2023-11-14] MEDS: Ascorbic Acid 500 MG Tablet PO (08:03)
[2023-11-14] MEDS: Morphine 2 MG/ML Syringe IV (08:05)
[2023-11-14] MEDS: diazePAM 5 MG Tablet PO ×2 (08:05→14:25)
--- NOTE | 2023-11-14 09:17 | CASEMGMT ---
RN COTY met with patient and informed him [facility] is unable to accept due to staffing. Patient was provided a list of [facility] providers including quality and resource use data and consistent with the patient?s preferred geographic region, medical needs, and insurance network were provided from the [employer]. Patient requested a referral be sent to [facility]. Referral sent. Rianna INIGUEZ, RN, CCM
--- NOTE | 2023-11-14 10:44 | PN.HOSP_ITS ---
Reason for Visit Reason for Visit: Diagnoses Inflammatory disorders of scrotum (11/12/23) Localized edema (11/12/23) Objective Data Objective Data Vital Signs: Vital Signs Temp Pulse Resp BP Pulse Ox O2 Del Method O2 Flow Rate 97.7 F L 82 16 139/56 H 97 Nasal Cannula 4 11/14/23 08:58 11/14/23 08:58 11/14/23 08:58 11/14/23 08:58 11/14/23 08:58 11/14/23 08:58 11/14/23 10:20 Oxygen Flow Rate (L/min) 4 Oxygen Delivery Method Nasal Cannula Weight: 466 lb 3.2 oz Body Mass Index (BMI) 61.4 Intake & Output: Intake and Output for Last 24 Hours 11/12/23 11/13/23 11/14/23 23:59 23:59 23:59 Intake Total 740 / 740 1310 / 1310 588.75 / 588.75 Output Total 3175 / 3175 900 / 900 Balance 740 / 340 -1865 / -1865 -311.25 / -311.25 Lab / Micro Data 11/13/23 06:11 11/13/23 06:11 Labs: Laboratory Results - last 24 hr 11/13/23 16:24: Vancomycin Trough 22.0 H 11/14/23 01:13: Random Vancomycin 13.5 Rhythm Strip Rhythm Strip: Sinus Rhythm Rate: 92 Ectopy: None Physical Exam Narrative Seen and examined. Bilateral upper thigh swelling and tenderness is better. Scrotal tenderness present but better than yesterday. Chronic bilateral lower extremity edema, dyspnea on exertion. Lasix resumed. IV line has infiltrated. Has chronic pain on lower extremities. Morbid obesity Physical exam General: Alert, Oriented x3, Cooperative. super morbid obesity BMI 61.5 kg/m HEENT: Atraumatic, PERRLA, EOMI, Normocephalic Oral: No Gingival or Mucosal Lesions/ Ulcerations Neck: Supple, No JVD, Negative Carotid Bruits Chest wall/Lungs: Air entry diminished in bilateral lung bases. No crepitation/rhonchi Cardiovascular: Regular rate, Regular Rhythm, Normal S1, Normal S2, No M/G/R Abdomen: Bowel Sounds Present, Soft, Non Tender, Non-Distended : Scrotal edema, induration with cellulitis and perineal region is improved. No dysuria. No renal angle tenderness. No suprapubic tenderness. Extremities: Bilateral chronic lower extremity edema 2+. Capillary Refill Less than 3 Seconds Skin: Redness, tenderness and induration present on perineal region Musculoskeletal: No Tenderness to Palpation of Joints or Extremities Neurological: Cranial nerves II-XII grossly intact, DTR 2+/4. No acute focal neurological deficit. Psych/Mental Status: Flat affect. Assessment & Plan Assessment/Plan (1) Cellulitis of scrotum: PLAN: Plan 53-year-old gentleman with chronic edema of lower extremities getting worse for about a week came to ED for scrotal swelling and pain. Patient also dyspnea on exertion, mild orthopnea but no chest discomfort for several days. He is on prophylactic antibiotic because of history of MRSA and been on Bactrim for a while. Just started on cefdinir several days ago. Follows ID in [place]. 1. Scrotal cellulitis with phlegmon/early abscess formation: [facility] Had CT abdomen/pelvis without IV contrast showed inflammatory changes in the perineum with 2 focal areas of phlegmon/surrounding fluid collection. Urologist was consulted. Discussed with him and does not think any abscess or drainable fluid collection. No free air on CT scan. ? He does have a history of MRSA, continue with Vanc, cefepime, and clindamycin. ID is consulted and discussed with him. 11/13:Patient was seen by ID and changed clindamycin to Flagyl otherwise other antibiotics same. Patient does not want any other medication except Tylenol and morphine. Tylenol 1 g every 8 hourly. Moving his bowels therefore senna S and Dulcolax suppository discontinued. Midline ordered 2. Essential HTN/HLD/bilateral lymphedema/nonobstructive coronary artery disease and chronic HFpEF status post pacemaker Echo in March 2023 ? Interpretation Summary The left ventricular ejection fraction is 65 %. The left atrium is moderately enlarged. The right atrium is mildly enlarged. The study was technically difficult with suboptimal images due to body habitus. It is suggestive of chronic HFpEF with enlarged atria. Diuretic to regimen from today evening. Given history of dyspnea on exertion heart failure will hold off any IV fluid. Continue Lipitor metoprolol. Resume Pradaxa. 11/14: Continue home medications. 3. DM2/morbid obesity ? Discussed lifestyle modifications ? Continue with sliding scale insulin ? hold his home glipizide. Accu-Chek before meals and at bedtime insulin coverage Humalog sliding scale. 4. GERD ? Stable ? Continue with PPI 5. Rheumatoid arthritis ? on prednisone 10 mg p.o. twice daily though he does take more depending on his symptoms ? Given his chronic steroid use, continue on the steroids to prevent adrenal crisis given his cellulitis 11/13: Has chronic pain on extremities restricted ambulation because of morbid obesity. On pain medications as mentioned above. DVT: SCDs. On Pradaxa. Laboratory Results 11/12/23 14:36: WBC 14.7 H, RBC 4.29 L, Hgb 10.5 L, Hct 37.1 L, MCV 86.5, MCH 24.5 L, MCHC 28.3 L, RDW Std Deviation 49.9 H, RDW Coeff of Kris 15.9 H, Plt Count 284, MPV 9.6, Immature Gran % (Auto) 0.800, Neut % (Auto) 82.2 H, Lymph % (Auto) 11.5 L, [place] % (Auto) 4.5, Eos % (Auto) 0.7, Baso % (Auto) 0.3, Absolute Neuts (auto) 12.1 H, Absolute Lymphs (auto) 1.69, Nucleated RBC % 0, Sodium 137, Potassium 3.8, Chloride 101, Carbon Dioxide 35.0 H, Anion Gap 1 L, BUN 13, Creatinine 1.29, Est GFR (MDRD) Af Amer 75, Est GFR (MDRD) Non-Af 62, BUN/Creatinine Ratio 10.1, Glucose 114 H, Lactic Acid 3.2 H*, Calcium 9.0, Troponin I High Sens 12, B-Natriuretic Peptide 42.7 11/12/23 19:37: Lactic Acid 2.0 11/12/23 21:26: POC Glucose 169 H 11/13/23 06:38: POC Glucose 121 H Clinical Impression(s) from Imaging Studies Abdomen/Pelvis CT 11/12/23 14:11 IMPRESSION: Inflammatory changes are seen in the perineum with 2 adjacent focal areas of the phlegmon/early fluid collections as described with evidence skin thickening along the medial aspect of the proximal thighs and subcutaneous edema. Diffuse scrotal thickening. No air is seen within this collection at this time. Follow-up recommended. Electronically Signed: Hieu Garcia MD at 15:22 EDT , Chest X-Ray 11/12/23 14:59 IMPRESSION: Stable bilateral increased markings in both lungs as described suggestive of scarring. Electronically Signed: Hieu Garcia MD at 15:24 EDT , Charges/Coding Visit Charges Inpatient E&M: 89726 Subs Hosp L2
[2023-11-14] MEDS: Acetaminophen 500 MG Tablet 1000 MG PO ×2 (11:13→22:26)
[2023-11-14] MEDS: Cefepime HCl 2 GM in 0.9% Normal Saline (100mL MB+) 100 ML IV ×2 (11:16→22:36)
[2023-11-14] MEDS: Furosemide 80 MG Tablet PO (11:16)
[2023-11-14] MEDS: Nystatin Powder 15gm Bottle 1 APPLIC TOPICAL ×2 (11:19→22:29)
[2023-11-14 15:36] LABS: Bedside Glucose 200 mg/dL (74-106)
[2023-11-14] MEDS: Furosemide 40 MG Tablet PO (17:21)
[2023-11-14] MEDS: Atorvastatin Calcium 40 MG Tablet PO (22:25)
[2023-11-15] VITALS (10 sets, daily range): BP systolic 104–161; BP diastolic 51–96; PULSE 72–83; RESP 16–18; TEMP 36.5–37.3; O2SAT 94–100
[2023-11-15 00:51] LABS: Bedside Glucose 254 mg/dL (74-106)
[2023-11-15] MEDS: diazePAM 5 MG Tablet PO ×4 (01:16→21:21)
[2023-11-15] MEDS: Vancomycin HCl 1,750 MG in 0.9% Normal Saline (500mL Bag) 500 ML 250 MG IV ×2 (03:21→16:18)
[2023-11-15] MEDS: Morphine 2 MG/ML Syringe IV ×3 (03:38→14:07)
[2023-11-15] MEDS: 0.9% Saline Lock 10 ML Syringe IV (03:41)
[2023-11-15 05:21] LABS: Absolute Lymphocyte Count 2.13 X10^3/uL (0.83-4.51); Absolute Neutrophil Count 11.2 X10^3/uL (2.0-7.7); Basophil# 0.04 X10^3/uL; Basophil% 0.3 % (0-1); Eosinophil# 0.25 X10^3/uL; Eosinophils% 1.7 % (0-5); Hematocrit 34.5 % (40-54); Hemoglobin 10.1 g/dL (13.0-16.5); Lymphocyte # 2.13 X10^3/ul (0.83-4.51); Lymphocyte % 14.8 % (19-41); Mean Corp Hgb Conc 29.3 g/dL (32-36); Mean Corpuscular Hgb 25.3 pg (27.0-32.0); Mean Corpuscular Volume 86.3 fL (80-94); Monocyte# 0.59 X10^3/uL; Monocyte% 4.1 % (0-10); NRBC Flagged by Analyzer 0 % (0-5); Neutrophil % 78.1 % (47-70); Platelet Count 242 K/mm3 (150-450); RBC Distribution Width CV 15.9 % (11.6-14.6); RBC Distribution Width SD 49.1 fl (35.1-43.9); White Blood Count 14.4 K/mm3 (4.4-11.0)
[2023-11-15 05:43] LABS: Anion Gap 3 (5-15); BUN 13 mg/dL (7-18); BUN/Creat Ratio 13.6 RATIO (10-20); Calcium,Total 8.4 mg/dL (8.5-10.1); Chloride 99 mmol/L (98-107); Creatinine, Serum 0.95 mg/dL (0.70-1.30); EST Glomerular Filtration Rate 87 mL/min (>60); Est Glom Filt Rate - Afr Amer 106 mL/min (>60); Estimated Creatinine Clearance 166.63 ml/min; Glucose 246 mg/dL (74-106); Potassium 3.6 mmol/L (3.5-5.1); Sodium Level 135 mmol/L (136-145)
[2023-11-15] MEDS: metroNIDAZOLE 500 MG Tablet PO ×3 (06:55→21:03)
[2023-11-15] MEDS: Levothyroxine 150 MCG Tablet PO (06:55)
[2023-11-15] MEDS: Levothyroxine 88 MCG Tablet PO (06:55)
[2023-11-15] MEDS: predniSONE 10 MG Tablet PO ×2 (08:53→16:59)
[2023-11-15] MEDS: Dabigatran Etexilate Mesylate 150 MG Capsule PO ×2 (08:53→21:05)
[2023-11-15] MEDS: Ascorbic Acid 500 MG Tablet PO (08:53)
[2023-11-15] MEDS: Pantoprazole Sodium 20 MG Tablet PO ×2 (08:54→21:04)
[2023-11-15] MEDS: Metoprolol Tartrate 25 MG Tablet 12.5 MG PO ×2 (08:54→21:05)
[2023-11-15] MEDS: Aspirin E.C. 81 MG Tablet PO (08:55)
[2023-11-15] MEDS: Nystatin Powder 15gm Bottle 1 APPLIC TOPICAL ×2 (08:56→21:06)
[2023-11-15] MEDS: Furosemide 80 MG Tablet PO (08:56)
[2023-11-15] MEDS: glipiZIDE 2.5 MG TAB.ER.24 PO ×2 (10:10→21:03)
[2023-11-15] MEDS: Cefepime HCl 2 GM in 0.9% Normal Saline (100mL MB+) 100 ML IV ×2 (10:10→21:23)
--- NOTE | 2023-11-15 13:27 | PCM.PN.HOSP ---
Reason for Visit Reason for Visit: Diagnoses Inflammatory disorders of scrotum (11/12/23) Localized edema (11/12/23) Objective Data Objective Data Vital Signs: Vital Signs Temp Pulse Resp BP Pulse Ox O2 Del Method O2 Flow Rate 97.7 F L 78 16 161/64 H 100 Nasal Cannula 4 11/15/23 11:41 11/15/23 11:41 11/15/23 11:41 11/15/23 11:41 11/15/23 11:41 11/15/23 11:41 11/15/23 11:41 Oxygen Flow Rate (L/min) 4 Oxygen Delivery Method Nasal Cannula Weight: 466 lb 3.2 oz Body Mass Index (BMI) 61.4 Intake & Output: Intake and Output for Last 24 Hours 11/13/23 11/14/23 11/15/23 23:59 23:59 23:59 Intake Total 1310 / 1310 2694.75 / 2694.75 935 / 935 Output Total 3175 / 3175 2450 / 2450 1800 / 1800 Balance -1865 / -1865 244.75 / 244.75 -865 / -865 Lab / Micro Data 11/15/23 05:13 11/15/23 05:13 Labs: Laboratory Results - last 24 hr 11/14/23 11:12: POC Glucose 200 H 11/14/23 22:32: POC Glucose 254 H 11/15/23 05:13: WBC 14.4 H, RBC 4.00 L, Hgb 10.1 L, Hct 34.5 L, MCV 86.3, MCH 25.3 L, MCHC 29.3 L, RDW Std Deviation 49.1 H, RDW Coeff of Kris 15.9 H, Plt Count 242, MPV 9.0, Immature Gran % (Auto) 1.000 H, Neut % (Auto) 78.1 H, Lymph % (Auto) 14.8 L, [place] % (Auto) 4.1, Eos % (Auto) 1.7, Baso % (Auto) 0.3, Absolute Neuts (auto) 11.2 H, Absolute Lymphs (auto) 2.13, Nucleated RBC % 0, Sodium 135 L, Potassium 3.6, Chloride 99, Carbon Dioxide 33.0 H, Anion Gap 3 L, BUN 13, Creatinine 0.95, Estim Creat Clear Calc 166.63, Est GFR (MDRD) Af Amer 106, Est GFR (MDRD) Non-Af 87, BUN/Creatinine Ratio 13.6, Glucose 246 H, Calcium 8.4 L Micro: Microbiology 11/12/23 14:36 Blood Culture (Wb) #2 - Right Forearm Blood Culture - Preliminary No growth in 48 hours. 11/12/23 14:36 Blood Culture (Wb) - Right Hand Blood Culture - Preliminary No growth in 48 hours. Rhythm Strip Rhythm Strip: Sinus Rhythm Rate: 92 Ectopy: None Physical Exam Narrative Seen and examined. Bilateral upper thigh swelling and tenderness is better. Scrotal swelling seems more testicular hydrocele but no tenderness. Chronic bilateral lower extremity edema, dyspnea on exertion. Patient has midline. Physical exam General: Alert, Oriented x3, Cooperative. super morbid obesity BMI 61.5 kg/m HEENT: Atraumatic, PERRLA, EOMI, Normocephalic Oral: No Gingival or Mucosal Lesions/ Ulcerations Neck: Supple, No JVD, Negative Carotid Bruits Chest wall/Lungs: Air entry diminished in bilateral lung bases. No crepitation/rhonchi Cardiovascular: Regular rate, Regular Rhythm, Normal S1, Normal S2, No M/G/R Abdomen: Bowel Sounds Present, Soft, Non Tender, Non-Distended : Scrotal edema, induration with cellulitis and perineal region is improved. No dysuria. No renal angle tenderness. No suprapubic tenderness. Extremities: Bilateral chronic lower extremity edema 2+. Capillary Refill Less than 3 Seconds Skin: Redness tenderness and induration have improved on perineal region. No open ulcer. Musculoskeletal: No Tenderness to Palpation of Joints or Extremities Neurological: Cranial nerves II-XII grossly intact, DTR 2+/4. No acute focal neurological deficit. Psych/Mental Status: Flat affect. Assessment & Plan Assessment/Plan (1) Cellulitis of scrotum: PLAN: Plan 53-year-old gentleman with chronic edema of lower extremities getting worse for about a week came to ED for scrotal swelling and pain. Patient also dyspnea on exertion, mild orthopnea but no chest discomfort for several days. He is on prophylactic antibiotic because of history of MRSA and been on Bactrim for a while. Just started on cefdinir several days ago. Follows ID in [place]. 1. Scrotal cellulitis with phlegmon/early abscess formation: Patient admitted to [facility]. Had CT abdomen/pelvis without IV contrast showed inflammatory changes in the perineum with 2 focal areas of phlegmon/surrounding fluid collection. Urologist was consulted. Discussed with him and does not think any abscess or drainable fluid collection. No free air on CT scan. ? He does have a history of MRSA, continue with Vanc, cefepime, and clindamycin. ID is consulted and discussed with him. 11/13:Patient was seen by ID and changed clindamycin to Flagyl otherwise other antibiotics same. Patient does not want any other medication except Tylenol and morphine. Tylenol 1 g every 8 hourly. Moving his bowels therefore senna S and Dulcolax suppository discontinued. Midline ordered 11/14: On the scrotal exam it seems more testicular swelling, cystic in consistency, hydrocele. Advised urology follow-up in 2 weeks. Continue above antibiotic and ID follow-up tomorrow for discharge antibiotics. With history of recurrent cellulitis, advised scrotal support and that he follow-up as an outpatient. 2. Essential HTN/HLD/bilateral lymphedema/nonobstructive coronary artery disease and chronic HFpEF status post pacemaker Echo in March 2023 ? Interpretation Summary The left ventricular ejection fraction is 65 %. The left atrium is moderately enlarged. The right atrium is mildly enlarged. The study was technically difficult with suboptimal images due to body habitus. It is suggestive of chronic HFpEF with enlarged atria. Diuretic to regimen from today evening. Given history of dyspnea on exertion heart failure will hold off any IV fluid. Continue Lipitor metoprolol. Resume Pradaxa. 11/14: Continue home medications. Mild hypokalemia. Yesterday, Lasix was resumed 80 mg a.m. and 40 mg p.m. with potassium supplement. 3. DM2/morbid obesity ? Discussed lifestyle modifications ? Continue with sliding scale insulin ? hold his home glipizide. Accu-Chek before meals and at bedtime insulin coverage Humalog sliding scale. 11/14: BMI 61.5 kg/m?. Patient was advised for follow-up PCP to try weight loss medications including semaglutide or GLP-1 agonist. 4. GERD ? Stable ? Continue with PPI 5. Rheumatoid arthritis ? on prednisone 10 mg p.o. twice daily though he does take more depending on his symptoms ? Given his chronic steroid use, continue on the steroids to prevent adrenal crisis given his cellulitis 11/13: Has chronic pain on extremities restricted ambulation because of morbid obesity. On pain medications as mentioned above. DVT: SCDs. On Pradaxa. Microbiology Past 72 Hours 11/12/23 14:36 Blood Culture (Wb) #2 - Right Forearm Blood Culture - Preliminary No growth in 48 hours. 11/12/23 14:36 Blood Culture (Wb) - Right Hand Blood Culture - Preliminary No growth in 48 hours. Laboratory Results 11/14/23 11:12: POC Glucose 200 H 11/14/23 22:32: POC Glucose 254 H 11/15/23 05:13: WBC 14.4 H, RBC 4.00 L, Hgb 10.1 L, Hct 34.5 L, MCV 86.3, MCH 25.3 L, MCHC 29.3 L, RDW Std Deviation 49.1 H, RDW Coeff of Kris 15.9 H, Plt Count 242, MPV 9.0, Immature Gran % (Auto) 1.000 H, Neut % (Auto) 78.1 H, Lymph % (Auto) 14.8 L, [place] % (Auto) 4.1, Eos % (Auto) 1.7, Baso % (Auto) 0.3, Absolute Neuts (auto) 11.2 H, Absolute Lymphs (auto) 2.13, Nucleated RBC % 0, Sodium 135 L, Potassium 3.6, Chloride 99, Carbon Dioxide 33.0 H, Anion Gap 3 L, BUN 13, Creatinine 0.95, Estim Creat Clear Calc 166.63, Est GFR (MDRD) Af Amer 106, Est GFR (MDRD) Non-Af 87, BUN/Creatinine Ratio 13.6, Glucose 246 H, Calcium 8.4 L Clinical Impression(s) from Imaging Studies Abdomen/Pelvis CT 11/12/23 14:11 IMPRESSION: Inflammatory changes are seen in the perineum with 2 adjacent focal areas of the phlegmon/early fluid collections as described with evidence skin thickening along the medial aspect of the proximal thighs and subcutaneous edema. Diffuse scrotal thickening. No air is seen within this collection at this time. Follow-up recommended. Electronically Signed: Hieu Garcia MD at 15:22 EDT , Chest X-Ray 11/12/23 14:59 IMPRESSION: Stable bilateral increased markings in both lungs as described suggestive of scarring. Electronically Signed: Hieu Garcia MD at 15:24 EDT , Charges/Coding Visit Charges Inpatient E&M: 11377 Subs Hosp L2
[2023-11-15] MEDS: Potassium Chloride Oral Tablet 20 MEQ 40 MEQ PO (14:02)
[2023-11-15 15:21] LABS: Vancomycin, Trough Level 20.2 ug/mL (5.0-15.0)
--- NOTE | 2023-11-15 15:27 | PCM.RX.CS ---
Consult Antibiotic Management Pharmacy has been consulted to manage selected antibiotic: Vancomycin Type of Intervention Type of Consult: Follow-up Suspected Infection Suspected Infection: Skin/Soft tissue Prior Doses of Antibiotics Prior Doses of Antibiotics Received/Current Regimen: Vancomycin 1750 mg Q12H given 11/13 @ 0252, 11/13 @ 1539, and 11/14 @ 0321 Labs Labs: Sodium 135 mmol/L (136-145) L 11/15/23 05:13 Potassium 3.6 mmol/L (3.5-5.1) 11/15/23 05:13 Chloride 99 mmol/L (98-107) 11/15/23 05:13 Carbon Dioxide 33.0 mmol/L (21.0-32.0) H 11/15/23 05:13 Anion Gap 3 (5-15) L 11/15/23 05:13 BUN 13 mg/dL (7-18) 11/15/23 05:13 Creatinine 0.95 mg/dL (0.70-1.30) 11/15/23 05:13 Est GFR (MDRD) Af Amer 106 mL/min (>60) 11/15/23 05:13 Est GFR (MDRD) Non-Af 87 mL/min (>60) 11/15/23 05:13 BUN/Creatinine Ratio 13.6 RATIO (10-20) 11/15/23 05:13 Glucose 246 mg/dL (74-106) H 11/15/23 05:13 Vancomycin Trough 20.2 ug/mL (5.0-15.0) H 11/15/23 14:29 Random Vancomycin 13.5 ug/mL (0.0-15.0) 11/14/23 01:13 Microbiology Microbiology: Microbiology 11/12/23 14:36 Blood Culture (Wb) #2 - Right Forearm Blood Culture - Preliminary No growth in 48 hours. 11/12/23 14:36 Blood Culture (Wb) - Right Hand Blood Culture - Preliminary No growth in 48 hours. Dosing Weight Weight used for dosin kg Estimated Creatinine Clearance Estimated Creatinine Clearance: ~160 Goal Trough Goal Trough: 15-20 mcg/mL Pharmacy Plan for Drug Dosing Pharmacy Plan for Drug Dosing: Vancomycin trough drawn 11 hours after previous dose = 20.2, likely would have been below 20 given another hour, will continue current dosing, trough in 2 days. Pharmacy Service will continue to monitor and adjust dosing as required. Follow-Up Labs Follow-Up Labs: Trough: Vancomycin Date/Time Labs Ordered Labs to be done on [date and time ordered]: 11/16 @ 2698
[2023-11-15] MEDS: Furosemide 40 MG Tablet PO (17:00)
[2023-11-15] MEDS: Acetaminophen 500 MG Tablet 1000 MG PO (21:04)
[2023-11-15] MEDS: Atorvastatin Calcium 40 MG Tablet PO (21:04)
[2023-11-15 22:37] LABS: Bedside Glucose 193 mg/dL (74-106)
[2023-11-16] MEDS: Morphine 2 MG/ML Syringe IV (02:50)
[2023-11-16] MEDS: Vancomycin HCl 1,750 MG in 0.9% Normal Saline (500mL Bag) 500 ML 250 MG IV (03:05)
[2023-11-16 06:45] VITALS: BP 130/76; PULSE 77; RESP 20; TEMP 36.7; O2SAT 96
[2023-11-16 06:51] LABS: Absolute Lymphocyte Count 2.33 X10^3/uL (0.83-4.51); Absolute Neutrophil Count 10.4 X10^3/uL (2.0-7.7); Basophil# 0.05 X10^3/uL; Basophil% 0.4 % (0-1); Eosinophil# 0.27 X10^3/uL; Hemoglobin 10.6 g/dL (13.0-16.5); Lymphocyte # 2.33 X10^3/ul (0.83-4.51); Lymphocyte % 16.8 % (19-41); Mean Corp Hgb Conc 28.6 g/dL (32-36); Mean Corpuscular Hgb 24.8 pg (27.0-32.0); Mean Corpuscular Volume 86.7 fL (80-94); Mean Platelet Vol. 8.8 fl (6.2-12.0); Monocyte# 0.69 X10^3/uL; NRBC Flagged by Analyzer 0 % (0-5); Neutrophil # 10.38 X10^3/uL (2.7-7.7); Platelet Count 249 K/mm3 (150-450); RBC Distribution Width SD 49.8 fl (35.1-43.9); Red Blood Count 4.27 M/mm3 (4.6-6.2); White Blood Count 13.8 K/mm3 (4.4-11.0)
[2023-11-16 06:55] VITALS: O2SAT 94
[2023-11-16] MEDS: metroNIDAZOLE 500 MG Tablet PO ×2 (07:02→13:56)
[2023-11-16] MEDS: Levothyroxine 150 MCG Tablet PO (07:03)
[2023-11-16] MEDS: Levothyroxine 88 MCG Tablet PO (07:03)
[2023-11-16] MEDS: Acetaminophen 500 MG Tablet 1000 MG PO ×2 (07:03→13:56)
[2023-11-16 07:24] LABS: Anion Gap 2 (5-15); BUN 14 mg/dL (7-18); BUN/Creat Ratio 16.1 RATIO (10-20); Calcium,Total 8.3 mg/dL (8.5-10.1); Chloride 101 mmol/L (98-107); Creatinine, Serum 0.87 mg/dL (0.70-1.30); EST Glomerular Filtration Rate 97 mL/min (>60); Est Glom Filt Rate - Afr Amer 118 mL/min (>60); Estimated Creatinine Clearance 181.95 ml/min; Glucose 131 mg/dL (74-106); Potassium 3.6 mmol/L (3.5-5.1); Sodium Level 138 mmol/L (136-145)
--- NOTE | 2023-11-16 09:44 | CASEMGMT ---
Addendum entered by Dolly Samano 11/16/23 14:24: Social Work VM left with pt's [employer]arest[employer] manager training, Kamala and notified of pt discharge home today. ULISES [place]ton Original Note: Social Work SW received call from pt's Waiver Coat Finisher Kamala Bhatia ([phone]). Pt has aid services M,T,TH,F for 8 hours each day and home delivered meals. Sw to update Kamala when pt discharges. ULISES Layton
--- NOTE | 2023-11-16 09:50 | CASEMGMT ---
Addendum entered by Nolvia Huston 11/16/23 13:52: Received tc from Heather at [facility], they are unable to accept pt. RN CM into pt room, pt made aware that [facility] was unable to accept him. Pt states he is meeting his CM from [facility] on . He would like to wait until after this to determine HHC. Offered to send the referral to the agencies on the list if he would like, to see if there is any acceptance, pt declines. Pt states he feels that he will be ok with his aides assistance for now. He states that he feels a little weaker but reports once he is home he will bounce back quickly. He is aware to contact should he change his mind once home. Pt provided with RN CM business card per request. Original Note: TC to [facility], spoke with Heather, she states she has not had a chance to review referral yet. She will review and call this RN CM back.
[2023-11-16 10:45] VITALS: BP 143/75; PULSE 76; RESP 16; TEMP 36.6; O2SAT 100
[2023-11-16] MEDS: Nystatin Powder 15gm Bottle 1 APPLIC TOPICAL (10:50)
[2023-11-16] MEDS: Dabigatran Etexilate Mesylate 150 MG Capsule PO (10:50)
[2023-11-16 10:51] VITALS: PULSE 76
[2023-11-16] MEDS: Metoprolol Tartrate 25 MG Tablet 12.5 MG PO (10:51)
[2023-11-16] MEDS: glipiZIDE 2.5 MG TAB.ER.24 PO (10:51)
[2023-11-16] MEDS: Aspirin E.C. 81 MG Tablet PO (10:51)
[2023-11-16] MEDS: predniSONE 10 MG Tablet PO (10:51)
[2023-11-16] MEDS: Pantoprazole Sodium 20 MG Tablet PO (10:52)
[2023-11-16] MEDS: Cefepime HCl 2 GM in 0.9% Normal Saline (100mL MB+) 100 ML IV (10:59)
--- NOTE | 2023-11-16 11:08 | PCM.DC.SUM ---
Providers Date of Admission: 11/12/23 Date of Discharge: 11/16/23 Primary Care Physician: Dr. Ida Norris, Consultations 11/12/23 18:42 Consult: Infectious Disease Routine Consulting Provider: Avinash Woods Reason for Consult: Scrotal cellulitis with phlegmon EMERGENT Consult: No Notified: Yes Date Notified: 11/13/23 Time Notified: 05:53 Method of Notification: Answering Service 11/13/23 07:43 Consult: Urology Routine Consulting Provider: George Gallagher Reason for Consult: early scrotal abscess/phlegmon EMERGENT Consult: No Notified: Yes Date Notified: 11/13/23 Time Notified: 07:43 Method of Notification: Text Reason For Visit: SCROTAL CELLULITIS WITH PHLEGMON Diagnosis Discharge Diagnosis (1) Testicular/scrotal pain: Status: Acute (2) Leg pain: Status: Acute Code(s): M79.606 - Pain in leg, unspecified Medications at Discharge Home Medications diazepam 10 mg tablet (Valium) 5 mg PO 4X/DAY PRN Anxiety 03/03/16 albuterol sulfate 90 mcg/actuation aerosol inhaler (Ventolin HFA) 1 - 2 puff inhalation UD PRN Sob &/Or Wheezing 07/07/20 ascorbic acid (vitamin C) 500 mg capsule 500 mg PO DAILY SUPPLEMENT 07/07/20 gabapentin 100 mg capsule 100 mg PO QHS PRN neuropathy 07/07/20 omeprazole 20 mg capsule,delayed release 20 mg PO BID ACID REFLUX 07/07/20 glipizide 2.5 mg tablet, extended release 24 hr 2.5 mg PO BID DIABETES 09/06/21 ammonium lactate 12 % topical cream 1 applic topical BID LEGS 08/16/22 aspirin 81 mg tablet,delayed release 81 mg PO DAILY HEART HEALTH 08/16/22 atorvastatin 40 mg tablet 40 mg PO QHS CHOLESTEROL 08/16/22 bumetanide 1 mg tablet 1 mg PO DAILY PRN FLUID 08/16/22 dabigatran etexilate 150 mg capsule (Pradaxa) 150 mg PO BID BLOOD THINNER 08/16/22 fluticasone propionate 50 mcg/actuation nasal spray,suspension 2 spray intranasal DAILY PRN Nasal Congestion 08/16/22 levothyroxine 150 mcg tablet 150 mcg PO DAILY THYROID 08/16/22 losartan 25 mg tablet 12.5 mg PO BID BLOOD PRESSURE 08/16/22 metoprolol tartrate 25 mg tablet 12.5 mg PO BID BLOOD PRESSURE 08/16/22 miconazole nitrate 2 % topical cream 1 applic topical BID FUNGAL INFECTION 08/16/22 nystatin 100,000 unit/gram topical powder (Nyamyc) 1 applic topical BID SKIN FOLDS 08/16/22 prednisone 10 mg tablet 10 mg PO BID STEROID 08/16/22 furosemide 20 mg tablet 80 mg PO DAILY directic 06/27/23 furosemide 40 mg tablet (Lasix) 40 mg PO 1700 fluid 06/27/23 levothyroxine 88 mcg tablet 88 mcg PO DAILY hypothyroidism 06/27/23 amoxicillin 875 mg-potassium clavulanate 125 mg tablet 1 tab PO BID #10 tabs 11/16/23 doxycycline hyclate 100 mg capsule 100 mg PO BID #10 caps 11/16/23 oxycodone 5 mg tablet 5 mg PO Q6H PRN pain 3 days #12 tabs 11/16/23 Hospital Course Operations None Procedures EKG and - (CXR, CTAP w/o contrast) Summary of Care Provided Minutes Spent on Discharge: 35 Hospital Course: Patient is a 53yo male who presented to [facility] on 11/12/2023 with worsening scrotal pain and swelling. Hospital course as noted below. Patient discharged home with [facility] in stable condition on 11/15. 1. Scrotal cellulitis with phlegmon - Urology and ID followed. CTAP on admit showed inflammatory changes in perineum w/ 2 focal areas of phlegmon/surrounding fluid collection. Per Urology, no abscess or drainage fluid collection, no free air noted on scan, no need for intervention. Initially on Vanc, cefepime, clindamycin on admit, then clindamycin was deescalated to Flayl on 11/13. Had good improvement on these antibiotics. Blood cultures negative. Per ID recs, discharged on PO doxycycline and augmentin to complete 5 more days of antibiotics total. Outpatient follow up with Urology as needed. Treated w/ oxycodone as needed for pain control while inpatient, given short script for oxycodone on discharge. 2. Acute on chronic debility - PT/OT/CM followed. Had fairly poor therapy scores but declined SNF on discharge. Discharged home w/ [facility] and with known private aid services (M,T,TH,F for 8 hours each day) in stable condition. Chronic medical conditions: - Morbid obesity: BMI 61 on admit. Complicates hospital course, care and prognosis. Encouraged lifestyle modifications. Patient also noted recently discussion GLP-1 medication w/ PCP, seems like he would be a good candidate, encouraged close outpatient follow up. - HTN, HLD, bilateral lymphedema, nonobstructive CAD, chronic HFpEF: Last echo in 03/2023 showed EF 65%, LA moderately enlarged, RA mildly enlarged. Hemodynamically stable and seemed euvolemic on admit, no IV fluids given. Initial held home diuretics, restarted them on 11/14, patient tolerated w/out issue. Continue home lasix, aspirin, statin, losartan and lopressor on discharge. - Chronic Afib: Stable. Continue home Pradaxa and lopressor. - GERD: Stable. Continue home PPI. - RA: Stable. Continue home prednisone 10 mg BID. - T2DM: Blood sugars stable on SSI while inpatient, okay to resume home glipizide on discharge. - Hypothyroidism: Continue home Synthroid. Total clinical time spent by myself addressing the patient's medical issues, reviewing all the data, and collaborating with patient's care team: 35 minutes. Physical Exam Narrative Physical exam General: Alert, Oriented x3, Cooperative. super morbid obesity BMI 61.5 kg/m HEENT: Atraumatic, PERRLA, EOMI, Normocephalic Oral: No Gingival or Mucosal Lesions/ Ulcerations Neck: Supple, No JVD, Negative Carotid Bruits Chest wall/Lungs: Air entry diminished in bilateral lung bases. No crepitation/rhonchi Cardiovascular: Regular rate, Regular Rhythm, Normal S1, Normal S2, No M/G/R Abdomen: Bowel Sounds Present, Soft, Non Tender, Non-Distended : Scrotal edema, induration with cellulitis and perineal region is improved. No dysuria. No renal angle tenderness. No suprapubic tenderness. Extremities: Bilateral chronic lower extremity edema 2+. Capillary Refill Less than 3 Seconds Skin: Redness tenderness and induration have improved on perineal region. No open ulcer. Musculoskeletal: No Tenderness to Palpation of Joints or Extremities Neurological: Cranial nerves II-XII grossly intact, DTR 2+/4. No acute focal neurological deficit. Psych/Mental Status: Flat affect. Weight / BMI Weight Weight: 211.465 kg Body Mass Index (BMI) 61.4 ABG / Lab / Microbiology Data 11/16/23 06:39 11/16/23 06:39 Laboratory: Laboratory Results - last 24 hr 11/15/23 14:29: Vancomycin Trough 20.2 H 11/15/23 21:30: POC Glucose 193 H 11/16/23 06:39: WBC 13.8 H, RBC 4.27 L, Hgb 10.6 L, Hct 37.0 L, MCV 86.7, MCH 24.8 L, MCHC 28.6 L, RDW Std Deviation 49.8 H, RDW Coeff of Kris 16.0 H, Plt Count 249, MPV 8.8, Immature Gran % (Auto) 0.800, Neut % (Auto) 75.0 H, Lymph % (Auto) 16.8 L, [place] % (Auto) 5.0, Eos % (Auto) 2.0, Baso % (Auto) 0.4, Absolute Neuts (auto) 10.4 H, Absolute Lymphs (auto) 2.33, Nucleated RBC % 0, Sodium 138, Potassium 3.6, Chloride 101, Carbon Dioxide 35.0 H, Anion Gap 2 L, BUN 14, Creatinine 0.87, Estim Creat Clear Calc 181.95, Est GFR (MDRD) Af Amer 118, Est GFR (MDRD) Non-Af 97, BUN/Creatinine Ratio 16.1, Glucose 131 H, Calcium 8.3 L Microbiology: Microbiology 11/12/23 14:36 Blood Culture (Wb) #2 - Right Forearm Blood Culture - Preliminary No growth in 48 hours. 11/12/23 14:36 Blood Culture (Wb) - Right Hand Blood Culture - Preliminary No growth in 48 hours. Meaningful Use Info Meaningful Use Diagnoses (Choose all that apply): None applicable Discharge Plan Admission Admit Date/Time: 11/12/23 17:43 Primary Reason for Your Visit: Cellulitis of scrotum Attending Provider: Forrest Bruce Primary Care Provider: Ida Norris Consulting Providers: Avinash Woods; Noah Pickard; George Gallagher; Tito Jacobson Discharge Orders/Prescriptions Prescriptions: New doxycycline hyclate 100 mg capsule 100 mg PO BID Qty: 10 0RF amoxicillin-pot clavulanate 875-125 mg tablet 1 tab PO BID Qty: 10 0RF oxycodone 5 mg tablet 5 mg PO Q6H PRN (Reason: pain) 3 Days Qty: 12 0RF Continued glipizide 2.5 mg tablet extended release 24hr 2.5 mg PO BID diazepam [Valium] 10 MG tablet 5 mg PO 4X/DAY PRN (Reason: Anxiety) omeprazole 20 MG capsule,delayed release(DR/EC) 20 mg PO BID gabapentin 100 MG capsule 100 mg PO QHS PRN (Reason: neuropathy) Patient Comments: 100-200mg albuterol sulfate [Ventolin HFA] 1 INHALER inhaler 1 - 2 puff INHALATION UD PRN (Reason: Sob &/Or Wheezing) Rx Instructions: INHALE 1 TO 2 PUFFS BY MOUTH AND INTO THE LUNGS EVERY 4 TO 6 HOURS NEEDED ascorbic acid (vitamin C) 500 MG capsule 500 mg PO DAILY prednisone 10 mg Tablet 10 mg PO BID miconazole nitrate 2 % cream 1 applic TOPICAL BID Patient Comments: apply to affected area twice a day aspirin 81 mg tablet,delayed release (DR/EC) 81 mg PO DAILY levothyroxine 150 mcg tablet 150 mcg PO DAILY Patient Comments: take 2 tablets by mouth once daily bumetanide 1 mg tablet 1 mg PO DAILY PRN (Reason: FLUID) ammonium lactate 12 % cream 1 applic TOPICAL BID nystatin [Nyamyc] 100,000 unit/gram powder 1 applic TOPICAL BID Patient Comments: apply to affected area once daily to twice a day fluticasone propionate 50 mcg/actuation spray,suspension 2 spray INTRANASAL DAILY PRN (Reason: Nasal Congestion) Patient Comments: instill 2 sprays into each nostril once daily atorvastatin 40 mg tablet 40 mg PO QHS losartan 25 mg tablet 12.5 mg PO BID metoprolol tartrate 25 mg tablet 12.5 mg PO BID dabigatran etexilate [Pradaxa] 150 mg capsule 150 mg PO BID Rx Instructions: take 1 pill (150mg) in the morning then take 1 pill in the evening (150mg) for a total of 300mg. levothyroxine 88 mcg tablet 88 mcg PO DAILY Rx Instructions: take with 150mg tab furosemide 20 mg tablet 80 mg PO DAILY Patient Comments: 80mg in am and 40mg at 1700 furosemide [Lasix] 40 mg tablet 40 mg PO 1700 Referrals / Follow Up: George Gallagher MD [Med Staff - Active Staff] - Within 2 Weeks (For his scrotal swelling seems HydroSil.) Ida Norris DO [Primary Care Provider] - Avinash Woods MD [Med Staff - Active Staff] - Within 1 Month Disposition Disposition (needs filled in before D/C Order can be placed): Home Health Service Charges/Coding Visit Charges Inpatient E&M: 26443 Disch Hosp >30min
--- NOTE | 2023-11-16 13:33 | PCM.PN.ID ---
Physical Exam Narrative Feeling better, no fever, less pain/swelling in scrotum Const alert and no apparent distress General Appearance: cooperative Resp normal air movement and clear to auscultation bilaterally Cardio regular rate and regular rhythm GI soft to palpation, non-tender and non-distended Skin no rashes or lesions noted ID ID: Route of nutrition/ use of supplements: [] Nutritional Intake: [] IV Site: [] Sky Catheter: [] Assessment & Plan Assessment/Plan (1) Cellulitis of scrotum: PLAN: Improved. Reports hives with PCN, but has tolerated amox and cefdinir without issue. Plan for discharge will be 5 days po doxy 100mg bid and augmentin 875mg bid. Will follow as needed (2) Edema of both lower legs:
--- NOTE | 2023-11-16 13:39 | PHA.DC.MC.R ---
Pharmacy [facility] has performed discharge medication reconciliation and counseling for this patient. Patient would like medications delivered to his room. Called retail and requested meds to beds. 1. AMOXICILLIN/CLAVULANATE 875/125MG PO BID X 5 DAYS 2. DOXYCYCLINE 100MG PO BID X 5 DAYS The patient's discharge medication list was reviewed for discrepancies and discrepancies were resolved. The patient was counseled on the following discharge medications and changes in medications for homegoing were reviewed. The Reason for Use, instructions for use, and potential side effects were reviewed for all new medications. The patient's questions regarding all of their medications were answered. The patient was able to verbally demonstrate an understanding of their discharge medications. Medications at Discharge Home Medications diazepam 10 mg tablet (Valium) 5 mg PO 4X/DAY PRN Anxiety 03/03/16 albuterol sulfate 90 mcg/actuation aerosol inhaler (Ventolin HFA) 1 - 2 puff inhalation UD PRN Sob &/Or Wheezing 07/07/20 ascorbic acid (vitamin C) 500 mg capsule 500 mg PO DAILY SUPPLEMENT 07/07/20 gabapentin 100 mg capsule 100 mg PO QHS PRN neuropathy 07/07/20 omeprazole 20 mg capsule,delayed release 20 mg PO BID ACID REFLUX 07/07/20 glipizide 2.5 mg tablet, extended release 24 hr 2.5 mg PO BID DIABETES 09/06/21 ammonium lactate 12 % topical cream 1 applic topical BID LEGS 08/16/22 aspirin 81 mg tablet,delayed release 81 mg PO DAILY HEART HEALTH 08/16/22 atorvastatin 40 mg tablet 40 mg PO QHS CHOLESTEROL 08/16/22 bumetanide 1 mg tablet 1 mg PO DAILY PRN FLUID 08/16/22 dabigatran etexilate 150 mg capsule (Pradaxa) 150 mg PO BID BLOOD THINNER 08/16/22 fluticasone propionate 50 mcg/actuation nasal spray,suspension 2 spray intranasal DAILY PRN Nasal Congestion 08/16/22 levothyroxine 150 mcg tablet 150 mcg PO DAILY THYROID 08/16/22 losartan 25 mg tablet 12.5 mg PO BID BLOOD PRESSURE 08/16/22 metoprolol tartrate 25 mg tablet 12.5 mg PO BID BLOOD PRESSURE 08/16/22 miconazole nitrate 2 % topical cream 1 applic topical BID FUNGAL INFECTION 08/16/22 nystatin 100,000 unit/gram topical powder (Nyamyc) 1 applic topical BID SKIN FOLDS 08/16/22 prednisone 10 mg tablet 10 mg PO BID STEROID 08/16/22 furosemide 20 mg tablet 80 mg PO DAILY 06/27/23 furosemide 40 mg tablet (Lasix) 40 mg PO 1700 fluid 06/27/23 levothyroxine 88 mcg tablet 88 mcg PO DAILY 06/27/23 amoxicillin 875 mg-potassium clavulanate 125 mg tablet 1 tab PO BID #10 tabs 11/16/23 doxycycline hyclate 100 mg capsule 100 mg PO BID #10 caps 11/16/23
[2023-11-16 14:30] VITALS: BP 133/65; PULSE 74; RESP 18; TEMP 36.2; O2SAT 98
--- NOTE | 2023-11-16 14:46 | CHAPLAIN ---
Type of Pastoral Visit _x__ Initial Visit ___ Follow-up Visit ___ On-call Visit ___ General Patient Visit ___ Spiritual Assessment ___ Family Conference ___ Bereavement ___ Rapid Response ___ Code Blue ___ Other (describe below) Pastoral Care Referral From _x__ Patient ___ Family ___ Nurse ___ Physician ___ Sole Conditioner ___ Boot Lace Cutter Machine ___ Other (describe below) Sacrament/Intervention _x__ Active listening ___ Anointing ___ Voodoo ___ Bereavement ___ Communion _x__ Paulina exploration ___ ___ Life review _x__ Prayer ___ Reconciliation ___ Sacrament of Sick _x__ Supportive presence ___ Wedding ___ Other (describe below) Pastoral Comments patient expresses that he had a difficult weekend both physically and mentally but is improved now; pt had wanted the spiritual care earlier but due to this youth accommodation support worker being out of the building that support had to be put off until today; pt expresses his thankfulness for the support today and the ability to talk openly about his feelings and disappointments through his recent health history; pt had questions about spiritual matters and how to face his illnesses; pt welcomes prayer and presence today for support
[2023-11-16] MEDS: diazePAM 5 MG Tablet PO (15:53)
--- NOTE | 2023-11-17 09:22 | CASEMGMT ---
Received tc from pt. He states he is in pain and wants to be admitted back to the hospital and is asking if he can bypass the ER to get this done. 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 He states he did take the antibiotic yesterday. He reports he is in so much pain that he cannot drive to the doctor. Made pt aware he could call 's office to see if he could be seen or for any recommendations. Pt has the phone number and states he will do this. Pt denies further questions at this time.
== END 2023-11-16 17:00 | disposition home health service (06) | DRG 501 ==
LOC: ED 15:45 → MS3 17:51
PROVIDERS: Internal Medicine; Admitting Provider Family Medicine; Emergency Provider Emergency Medicine; PCP Family Medicine; Visit Provider Hospitalist
DX: N49.2 Inflammatory disorders of scrotum (principal); I48.20 Chronic atrial fibrillation, unspecified; I11.0 Hypertensive heart disease with heart failure; I50.32 Chronic diastolic (congestive) heart failure; J44.9 Chronic obstructive pulmonary disease, unspecified; E66.01 Morbid (severe) obesity due to excess calories; E11.9 Type 2 diabetes mellitus without complications; Z68.44 Body mass index [BMI] 60.0-69.9, adult; M06.9 Rheumatoid arthritis, unspecified; E03.9 Hypothyroidism, unspecified; K21.9 Gastro-esophageal reflux disease without esophagitis; I25.10 Atherosclerotic heart disease of native coronary artery without angina pectoris; I89.0 Lymphedema, not elsewhere classified; E87.6 Hypokalemia; R60.0 Localized edema; G89.29 Other chronic pain; R53.81 Other malaise; N43.3 Hydrocele, unspecified; Z79.82 Long term (current) use of aspirin; Z79.2 Long term (current) use of antibiotics; Z79.52 Long term (current) use of systemic steroids; Z79.890 Hormone replacement therapy; Z79.899 Other long term (current) drug therapy; Z87.891 Personal history of nicotine dependence; Z86.14 Personal history of Methicillin resistant Staphylococcus aureus infection; Z95.0 Presence of cardiac pacemaker; Z95.5 Presence of coronary angioplasty implant and graft
CPT/HCPCS: 36415; 71045; 74176; 80048; 80053; 80202; 82306; 82962; 83036; 83605; 83880; 84439; 84443; 84481; 84484; 85025; 85652; 86140; 87040; 93005; 97110; 97162; 97166; 97535; 99285; J7040; A4216

== ENCOUNTER 2023-11-17 12:05 | Inpatient (IN) | payer MEDICAID, SELFPAY ==
[2023-11-17 12:06] VITALS: BP 158/81; PULSE 108; RESP 26; TEMP 36.2; O2SAT 93; BMI 63.2
--- NOTE | 2023-11-17 13:21 | EDS_ITS ---
HPI History of Present Illness Chief Complaint: Wound Detail of Chief Complaint: Scrotal cellulitis. Unable to care for self. Informant: patient Onset/Context/Timing Onset: Weeks Context: Gradual Onset Timing: Continuous Current Severity: Mild Maximum Severity: Mild Narrative Narrative: 53-year-old male with chronic history of anemia, A-fib on the blood thinner Pradaxa, CAD, diabetes and hypertension. Was admitted to the hospital for groin infection was admitted last and discharged yesterday. He states he is unable to care for himself. He lives at home with his mom. And things need to be readmitted. And possibly placed in a senior living if he cannot get the infection under control. He was discharged home on both the antibiotics doxycycline and Augmentin. Prior similar symptoms: Yes Recent Illness/Hospitalization: Yes PFSH PFS Medical History Abscess of deep perineal space Anemia Anemia Anxiety Atherosclerotic heart disease of [place] coronary artery without angina pectoris Atrial fibrillation Chest pain Chronic hypoxemic respiratory failure Chronic pain Chronic prescription benzodiazepine use Chronic steroid use Colon polyps COPD (chronic obstructive pulmonary disease) Depression Depression Diabetes DVT (deep venous thrombosis) Essential hypertension Family history of premature CAD GERD (gastroesophageal reflux disease) Goiter History of Chanel's gangrene HLD (hyperlipidemia) Hypothyroidism Hypothyroidism IBS (irritable bowel syndrome) Intertrigo Kidney stones Left against medical advice Leg pain Myocardial infarct Non-healing surgical wound NSTEMI, initial episode of care On home oxygen therapy BERT (obstructive sleep apnea) Pacemaker Pain in scapula PTSD (post-traumatic stress disorder) Rheumatoid arthritis Sleep apnea Smoker Super obesity Superficial thrombophlebitis of leg Thrush Type 2 diabetes mellitus Ulcer of scrotum Home Medications diazepam 10 mg tablet (Valium) 5 mg PO 4X/DAY PRN Anxiety 03/03/16 [History Last Taken 08/15/22] albuterol sulfate 90 mcg/actuation aerosol inhaler (Ventolin HFA) 1 - 2 puff inhalation UD PRN Sob &/Or Wheezing 07/07/20 [History Last Taken 08/11/22] ascorbic acid (vitamin C) 500 mg capsule 500 mg PO DAILY SUPPLEMENT 07/07/20 [History Last Taken 03/26/23] gabapentin 100 mg capsule 100 mg PO QHS PRN neuropathy 07/07/20 [History Last Taken 03/25/23] omeprazole 20 mg capsule,delayed release 20 mg PO BID ACID REFLUX 07/07/20 [History Last Taken 03/26/23] glipizide 2.5 mg tablet, extended release 24 hr 2.5 mg PO BID DIABETES 09/06/21 [History Last Taken 03/26/23] ammonium lactate 12 % topical cream 1 applic topical BID LEGS 08/16/22 [History Last Taken 03/26/23] aspirin 81 mg tablet,delayed release 81 mg PO DAILY HEART HEALTH 08/16/22 [History Last Taken 03/26/23] atorvastatin 40 mg tablet 40 mg PO QHS CHOLESTEROL 08/16/22 [History Last Taken 03/25/23] bumetanide 1 mg tablet 1 mg PO DAILY PRN FLUID 08/16/22 [History Last Taken Unknown] dabigatran etexilate 150 mg capsule (Pradaxa) 150 mg PO BID BLOOD THINNER 08/16/22 [History Last Taken 03/26/23] fluticasone propionate 50 mcg/actuation nasal spray,suspension 2 spray intranasal DAILY PRN Nasal Congestion 08/16/22 [History Last Taken Unknown] levothyroxine 150 mcg tablet 150 mcg PO DAILY THYROID 08/16/22 [History Last Taken 03/26/23] losartan 25 mg tablet 12.5 mg PO BID BLOOD PRESSURE 08/16/22 [History Last Taken 03/26/23] metoprolol tartrate 25 mg tablet 12.5 mg PO BID BLOOD PRESSURE 08/16/22 [History Last Taken 03/26/23] miconazole nitrate 2 % topical cream 1 applic topical BID FUNGAL INFECTION 08/16/22 [History Last Taken 03/26/23] nystatin 100,000 unit/gram topical powder (Nyamyc) 1 applic topical BID SKIN FOLDS 08/16/22 [History Last Taken 03/26/23] prednisone 10 mg tablet 10 mg PO BID STEROID 08/16/22 [History Last Taken 03/26/23] furosemide 20 mg tablet 80 mg PO DAILY 06/27/23 [History Last Taken Unknown] furosemide 40 mg tablet (Lasix) 40 mg PO 1700 fluid 06/27/23 [History Last Taken Unknown] levothyroxine 88 mcg tablet 88 mcg PO DAILY 06/27/23 [History Last Taken Unknown] amoxicillin 875 mg-potassium clavulanate 125 mg tablet 1 tab PO BID #10 tabs 11/16/23 [Rx Last Taken Unknown] doxycycline hyclate 100 mg capsule 100 mg PO BID #10 caps 11/16/23 [Rx Last Taken Unknown] oxycodone 5 mg tablet 5 mg PO Q6H PRN pain 3 days #12 tabs 11/16/23 [Rx Last Taken Unknown] Allergy/AdvReac Type Severity Reaction Status Date / Time Penicillins Allergy Hives Verified 11/12/23 13:38 red dye Allergy Hives Verified 11/12/23 13:38 etanercept [From Enbrel] AdvReac Swelling Verified 11/12/23 13:38 rivaroxaban [From Xarelto] AdvReac Nausea Verified 11/12/23 13:38 warfarin sodium AdvReac Nausea Verified 11/12/23 13:38 [From Coumadin] Family History Other Cancer Heart disease Kidney disease Surgical History History of coronary artery stent placement (03/25/21) Social History household members: family Smoking Status: Former smoker substance use type: does not use ROS ROS ED ROS Narrative Chills. Review of Systems ROS Unobtainable: Denies due to encephalopathy Constitutional Constitutional ED: Reports chills Eyes Eyes: Denies blurry vision ENT ENT ED: Denies ear pain Cardiovascular Cardiovascular: Denies chest pain Respiratory/Chest Respiratory/Chest: Denies cough or dyspnea Gastrointestinal Gastrointestinal: Denies abdominal pain, constipation, diarrhea, melena, nausea or vomiting Genitourinary Genitourinary ED: Denies dysuria or hematuria Musculoskeletal Musculoskeletal: Denies arthralgias Integumentary Denies abscess Neurologic Neurologic: Denies headache(s) Psychiatric Psychiatric: Denies anxiety or depression Endocrine Endocrinology: Denies cold intolerance, heat intolerance, polydipsia or polyphagia Hematologic/Lymphatic Hematologic/Lymphatic: Reports none Allergic/Immunologic Allergic/Immunologic ED: Denies mouth swelling, tongue swelling or urticaria EXAM Physical Exam Narrative Exam Narrative: 53-year-old morbidly obese male vital signs stable afebrile. H EENT exam unremarkable. Neck nontender. Lungs clear to auscultation bilaterally. Heart regular rhythm rate about 110 no murmur. Chest wall and ribs nontender. Abdomen soft nontender. Moving all 4 extremities. Nontender. No deformity. His external exam is a swollen scrotum that has cellulitis. Edema. I do not see an obvious abscess but it is a very large gentleman and I have trouble seeing the entire area and there is body habitus. Moving all 4 extremities. Neurologically is awake and alert. Answer questions following commands. Const Vital Signs: 11/17/23 12:06 11/17/23 13:32 Temperature 97.2 F L Temperature Source Temporal Pulse Rate 108 H 90 Respiratory Rate 26 H 14 Blood Pressure 158/81 H 110/62 Blood Pressure Mean 106 78 Pulse Ox 93 99 Oxygen Delivery Method Nasal Cannula Nasal Cannula Oxygen Flow Rate (L/min) 4 4 Positive well nourished, well developed and obese; Negative for cachectic, contractures or unkempt General Appearance ED: well developed and NAD; Negative for unkempt, cachectic, contractures, cyanotic, diaphoretic or pallor Nutritional Appearance: obese; Negative for cachectic HEENT Reports moist mucous membranes; Denies dry mucous membranes Negative for trauma or tenderness Mouth ED: No dry mucous membranes Mouth: No dry mucous membranes Eyes PERRL and EOMs intact bilaterally General Eye ED: Negative for pale conjunctiva, scleral icterus or other Neck no lymphadenopathy, supple and no JVD General: Negative for tenderness Lymph Lymphatic: Negative for other Chest Wall inspection of chest normal and palpation of chest normal Chest: Negative for other Resp normal respiratory effort and clear to auscultation bilaterally Effort and Inspection: Negative for retractions Auscultation: Negative for rales, rhonchi or wheezes Cardio regular rate, regular rhythm, S1 normal heart sound and no murmurs Rate: Negative for bradycardia Rhythm: Negative for abnormal rhythm GI normal to inspection, nondistended, normoactive bowel sounds, non-tender, non- distended and no masses Palpation: soft; Negative for tender, guarding or rebound tenderness present Narrative: Swollen, red scrotum consistent with cellulitis. I do not visualize any obvious abscess. Back/Spine no CVA tenderness General Back: Negative for CVA tenderness Cervical Spine: Negative for cervical spine tenderness Thoracic Spine / Upper Back: Negative for thoracic spinal tenderness Lumbar Spine / Lower Back: Negative for lumbar spinal tenderness Extremity normal to inspection General Extremety ED: Negative for edema or tenderness General Extremity: Negative for edema Neuro oriented x3 and CN's II-XII intact bilaterally Sensorium / Orientation: alert; Negative for orientation impaired, lethargic or stuporous Motor Exam: strength 5/5 throughout Psych mental status grossly normal Appearance: Negative for unkempt Attitude: No agitated Mood & Affect: Negative for depressed, anxious or tearful Skin No no rashes or lesions noted Skin Narrative: Cellulitis of the scrotum. General Skin Exam: Negative for jaundice or pallor MDM MDM MDM Narrative Medical decision making narrative: 53-year-old diabetic male history of A-fib on Pradaxa recently hospitalized discharged yesterday. States he is unable to care for himself. His cellulitis of his scrotum. Will be started on IV antibiotics have will get screening labs and have the hospitalist on page for readmission. Repeat exam at 2:13 PM. Patient is doing well. He was given a second dose of morphine for pain. Hospitalist is currently admitting multiple patients in the ER I will discuss with her his admission when she is available. History & Record Review Discussion w/independent historian: Patient Additional record(s) reviewed:: Prior inpatient record, Prior outpatient record, Prior ED visit and Prior labs Lab Data Attestation: I reviewed the patient's lab results. Lab results narrative: CBC shows a white count elevation of 17.8. H&H 10.9 and 37.5. Platelets 248. Electrolytes show potassium 3.3. Gap 4. Normal BUN and creatinine of 13 and 1. Glucose 140. No significant lab changes from recent labs. Labs: Laboratory Results - last 24 hr 11/17/23 13:30 WBC 17.8 H RBC 4.38 L Hgb 10.9 L Hct 37.5 L MCV 85.6 MCH 24.9 L MCHC 29.1 L RDW Std Deviation 49.9 H RDW Coeff of Kris 16.2 H Plt Count 248 MPV 8.9 Immature Gran % (Auto) 1.300 H Neut % (Auto) 74.0 H Lymph % (Auto) 17.2 L Delta % (Auto) 5.2 Eos % (Auto) 1.7 Baso % (Auto) 0.6 Absolute Neuts (auto) 13.2 H Absolute Lymphs (auto) 3.07 Nucleated RBC % 0.1 Sodium 137 Potassium 3.3 L Chloride 100 Carbon Dioxide 33.0 H Anion Gap 4 L BUN 13 Creatinine 1.01 Estim Creat Clear Calc 159.58 Est GFR (MDRD) Af Amer 99 Est GFR (MDRD) Non-Af 82 BUN/Creatinine Ratio 12.9 Glucose 140 H Calcium 8.5 Discharge Plan Triage Chief Complaint: Wound ED Provider: Rajendra Fam Dx/Rx/DC Orders Clinical Impression: Cellulitis, scrotum, Hx of leukocytosis, Chronic anticoagulation, History of atrial fibrillation, History of anemia, History of diabetes mellitus Prescriptions: No Action glipizide 2.5 mg tablet extended release 24hr 2.5 mg PO BID diazepam [Valium] 10 MG tablet 5 mg PO 4X/DAY PRN (Reason: Anxiety) omeprazole 20 MG capsule,delayed release(DR/EC) 20 mg PO BID gabapentin 100 MG capsule 100 mg PO QHS PRN (Reason: neuropathy) Patient Comments: 100-200mg albuterol sulfate [Ventolin HFA] 1 INHALER inhaler 1 - 2 puff INHALATION UD PRN (Reason: Sob &/Or Wheezing) Rx Instructions: INHALE 1 TO 2 PUFFS BY MOUTH AND INTO THE LUNGS EVERY 4 TO 6 HOURS NEEDED ascorbic acid (vitamin C) 500 MG capsule 500 mg PO DAILY prednisone 10 mg Tablet 10 mg PO BID miconazole nitrate 2 % cream 1 applic TOPICAL BID Patient Comments: apply to affected area twice a day aspirin 81 mg tablet,delayed release (DR/EC) 81 mg PO DAILY levothyroxine 150 mcg tablet 150 mcg PO DAILY Patient Comments: take 2 tablets by mouth once daily bumetanide 1 mg tablet 1 mg PO DAILY PRN (Reason: FLUID) ammonium lactate 12 % cream 1 applic TOPICAL BID nystatin [Nyamyc] 100,000 unit/gram powder 1 applic TOPICAL BID Patient Comments: apply to affected area once daily to twice a day fluticasone propionate 50 mcg/actuation spray,suspension 2 spray INTRANASAL DAILY PRN (Reason: Nasal Congestion) Patient Comments: instill 2 sprays into each nostril once daily atorvastatin 40 mg tablet 40 mg PO QHS losartan 25 mg tablet 12.5 mg PO BID metoprolol tartrate 25 mg tablet 12.5 mg PO BID dabigatran etexilate [Pradaxa] 150 mg capsule 150 mg PO BID Rx Instructions: take 1 pill (150mg) in the morning then take 1 pill in the evening (150mg) for a total of 300mg. levothyroxine 88 mcg tablet 88 mcg PO DAILY Rx Instructions: take with 150mg tab furosemide 20 mg tablet 80 mg PO DAILY Patient Comments: 80mg in am and 40mg at 1700 furosemide [Lasix] 40 mg tablet 40 mg PO 1700 doxycycline hyclate 100 mg capsule 100 mg PO BID Qty: 10 0RF amoxicillin-pot clavulanate 875-125 mg tablet 1 tab PO BID Qty: 10 0RF oxycodone 5 mg tablet 5 mg PO Q6H PRN (Reason: pain) 3 Days Qty: 12 0RF Primary Care Provider: Ida Norris Referrals: Ida Norris DO [Primary Care Provider] - Disposition Disposition: Acute Care Hospital [facility]
[2023-11-17] MEDS: Ondansetron 4 MG/2 ML Vial IV (13:25)
[2023-11-17] MEDS: Morphine 4 MG/ML Syringe 6 MG IV (13:25)
[2023-11-17 13:32] VITALS: BP 110/62; PULSE 90; RESP 14; O2SAT 99
[2023-11-17 13:38] LABS: Absolute Lymphocyte Count 3.07 X10^3/uL (0.83-4.51); Absolute Neutrophil Count 13.2 X10^3/uL (2.0-7.7); Basophil% 0.6 % (0-1); Eosinophil# 0.31 X10^3/uL; Eosinophils% 1.7 % (0-5); Hematocrit 37.5 % (40-54); Hemoglobin 10.9 g/dL (13.0-16.5); Lymphocyte # 3.07 X10^3/ul (0.83-4.51); Lymphocyte % 17.2 % (19-41); Mean Corp Hgb Conc 29.1 g/dL (32-36); Mean Corpuscular Hgb 24.9 pg (27.0-32.0); Mean Corpuscular Volume 85.6 fL (80-94); Mean Platelet Vol. 8.9 fl (6.2-12.0); Monocyte# 0.92 X10^3/uL; Monocyte% 5.2 % (0-10); NRBC Flagged by Analyzer 0.1 % (0-5); Platelet Count 248 K/mm3 (150-450); RBC Distribution Width CV 16.2 % (11.6-14.6); RBC Distribution Width SD 49.9 fl (35.1-43.9); Red Blood Count 4.38 M/mm3 (4.6-6.2); White Blood Count 17.8 K/mm3 (4.4-11.0)
[2023-11-17 13:53] LABS: Anion Gap 4 (5-15); BUN 13 mg/dL (7-18); BUN/Creat Ratio 12.9 RATIO (10-20); Calcium,Total 8.5 mg/dL (8.5-10.1); Chloride 100 mmol/L (98-107); Creatinine, Serum 1.01 mg/dL (0.70-1.30); EST Glomerular Filtration Rate 82 mL/min (>60); Est Glom Filt Rate - Afr Amer 99 mL/min (>60); Estimated Creatinine Clearance 159.58 ml/min; Glucose 140 mg/dL (74-106); Potassium 3.3 mmol/L (3.5-5.1); Sodium Level 137 mmol/L (136-145)
[2023-11-17] MEDS: Ampicillin/Sulbactam 3 GM in 0.9% Normal Saline (100mL MB+) 100 ML IV (13:58)
[2023-11-17] MEDS: morphine 8 MG/ML Syringe 6 MG IV (14:05)
--- NOTE | 2023-11-17 14:25 | NURSING ---
MED SURG WHITE SCROTAL CELLULITIS, LEUKOCYTOSIS, DM, CHRONIC ANTICOAGULATION, FT THRIVE
--- NOTE | 2023-11-17 14:43 | HP.PCM.HOS_ITS ---
HPI - General General Date of Admission: 11/17/23 Date of Service: 11/17/23 Chief Complaint: Recent d/c, unable to care for self HPI Narrative The patient is a 52 y/o M w/ PMHx: Rheumatoid arthritis, Tobacco use, Morbid obesity, COPD w/ Chronic Hypoxic Respiratory Failure (4L NC), Anxiety and Depression, Hx VTE, HTN, HLD, GERD, Hypothyroidism, Hx Chanel's gangrene, Rheumatoid arthritis, BERT, Tobacco use, IBS, Diabetes mellitus type II with chronic neuropathy, CAD s/p PCI, Chronic anemia/Fe Deficiency anemia, discharged 11/16/2023 following evaluation and treatment of scrotal cellulitis and phlegmon with urology consultation with no operative intervention with IV antibiotic therapy and ID consultation discharged on 5 days of oral doxycycline and Augmentin who now represents to the [facility] ED on 11/17/2023 with adult failure to thrive, difficulty caring for himself living at home with his mother unable to appropriately keep the scrotal region clean and dry prompting patient come back in for consideration of skilled facility placement given debility. Workup in the ED included T97.2, heart rate 104, BP 158/81, respiratory rate 26, 93% on 4 L nasal cannula most recently discharged on 3 L nasal cannula, CBC with WBC 17.8, hemoglobin 10.8, MCV 85.6, platelet 248 with left shift, BMP with potassium 3.3, Comvax at 33, glucose 140. In the ED patient administered Zofran 4 mg IV x 1, morphine 6 mg IV x 2 as well as Unasyn 3 g IV x 1. [facility] Medical History (Updated 11/17/23 @ 19:[address] Mary Roberson MD) Anemia Anxiety Atherosclerotic heart disease of [place] coronary artery without angina pectoris Atrial fibrillation Chest pain Chronic hypoxemic respiratory failure Chronic pain Chronic prescription benzodiazepine use Chronic steroid use Colon polyps COPD (chronic obstructive pulmonary disease) Depression Diabetes DVT (deep venous thrombosis) Essential hypertension Family history of premature CAD GERD (gastroesophageal reflux disease) Goiter History of Chanel's gangrene HLD (hyperlipidemia) Hypothyroidism Hypothyroidism IBS (irritable bowel syndrome) Intertrigo Kidney stones Left against medical advice Leg pain Myocardial infarct Non-healing surgical wound NSTEMI, initial episode of care On home oxygen therapy BERT (obstructive sleep apnea) Pacemaker Pain in scapula PTSD (post-traumatic stress disorder) Rheumatoid arthritis Sleep apnea Smoker Super obesity Superficial thrombophlebitis of leg Type 2 diabetes mellitus Ulcer of scrotum Home Medications diazepam 10 mg tablet (Valium) 5 mg PO 4X/DAY PRN Anxiety 03/03/16 [History Last Taken 08/15/22] albuterol sulfate 90 mcg/actuation aerosol inhaler (Ventolin HFA) 1 - 2 puff inhalation UD PRN Sob &/Or Wheezing 07/07/20 [History Last Taken 08/11/22] ascorbic acid (vitamin C) 500 mg capsule 500 mg PO DAILY SUPPLEMENT 07/07/20 [History Last Taken 03/26/23] gabapentin 100 mg capsule 100 mg PO QHS PRN neuropathy 07/07/20 [History Last Taken 03/25/23] omeprazole 20 mg capsule,delayed release 20 mg PO BID ACID REFLUX 07/07/20 [History Last Taken 03/26/23] glipizide 2.5 mg tablet, extended release 24 hr 2.5 mg PO BID DIABETES 09/06/21 [History Last Taken 03/26/23] ammonium lactate 12 % topical cream 1 applic topical BID LEGS 08/16/22 [History Last Taken 03/26/23] aspirin 81 mg tablet,delayed release 81 mg PO DAILY HEART HEALTH 08/16/22 [History Last Taken 03/26/23] atorvastatin 40 mg tablet 40 mg PO QHS CHOLESTEROL 08/16/22 [History Last Taken 03/25/23] bumetanide 1 mg tablet 1 mg PO DAILY PRN FLUID 08/16/22 [History Last Taken Unknown] dabigatran etexilate 150 mg capsule (Pradaxa) 150 mg PO BID BLOOD THINNER 08/16/22 [History Last Taken 03/26/23] fluticasone propionate 50 mcg/actuation nasal spray,suspension 2 spray intranasal DAILY PRN Nasal Congestion 08/16/22 [History Last Taken Unknown] levothyroxine 150 mcg tablet 150 mcg PO DAILY THYROID 08/16/22 [History Last Taken 03/26/23] losartan 25 mg tablet 12.5 mg PO BID BLOOD PRESSURE 08/16/22 [History Last Taken 03/26/23] metoprolol tartrate 25 mg tablet 12.5 mg PO BID BLOOD PRESSURE 08/16/22 [History Last Taken 03/26/23] miconazole nitrate 2 % topical cream 1 applic topical BID FUNGAL INFECTION 08/16/22 [History Last Taken 03/26/23] nystatin 100,000 unit/gram topical powder (Nyamyc) 1 applic topical BID SKIN FOLDS 08/16/22 [History Last Taken 03/26/23] prednisone 10 mg tablet 10 mg PO BID STEROID 08/16/22 [History Last Taken 03/26/23] furosemide 20 mg tablet 80 mg PO DAILY 06/27/23 [History Last Taken Unknown] furosemide 40 mg tablet (Lasix) 40 mg PO 1700 fluid 06/27/23 [History Last Taken Unknown] levothyroxine 88 mcg tablet 88 mcg PO DAILY 06/27/23 [History Last Taken Un known] amoxicillin 875 mg-potassium clavulanate 125 mg tablet 1 tab PO BID #10 tabs 11/16/23 [Rx Last Taken Unknown] doxycycline hyclate 100 mg capsule 100 mg PO BID #10 caps 11/16/23 [Rx Last Taken Unknown] oxycodone 5 mg tablet 5 mg PO Q6H PRN pain 3 days #12 tabs 11/16/23 [Rx Last Taken Unknown] Allergy/AdvReac Type Severity Reaction Status Date / Time Penicillins Allergy Hives Verified 11/12/23 13:38 red dye Allergy Hives Verified 11/12/23 13:38 etanercept [From Enbrel] AdvReac Swelling Verified 11/12/23 13:38 rivaroxaban [From Xarelto] AdvReac Nausea Verified 11/12/23 13:38 warfarin sodium AdvReac Nausea Verified 11/12/23 13:38 [From Coumadin] Family History (Updated 11/17/23 @ 19:[address] Mary Roberson MD) Mother Cancer Heart disease Kidney disease Hypertension Father Cancer Heart disease Kidney disease Hypertension Surgical History History of coronary artery stent placement (03/25/21) Social History (Updated 11/17/23 @ 19:[address] Mary Rboerson MD) household members: family Smoking Status: Former smoker alcohol intake: never substance use type: does not use ROS ROS Narrative Admission Review of Systems: CONSTITUTIONAL: No weight loss, fever, chills, + weakness or fatigue. HEENT: Eyes: No visual loss, blurred vision, double vision or yellow sclerae. Ears, Nose, Throat: No hearing loss, sneezing, congestion, runny nose or sore throat. SKIN: No rash or itching, lesions, wounds except + Notable BL LE erythema, chronic edema, recent scrotal cellulitis. CARDIOVASCULAR: No chest pain, chest pressure or chest discomfort, palpitations, edema, orthopnea, syncopal events. RESPIRATORY: + Chronic dyspnea, chronic cough, No marked sputum, wheezing, hemoptysis. GASTROINTESTINAL: No anorexia, nausea, vomiting or diarrhea, abdominal pain, melena, BRBPR. GENITOURINARY: + Scrotal edema, recent cellulitis. No dysuria, frequency, urgency or retention. NEUROLOGICAL: No headache, dizziness, syncope, paralysis, ataxia, numbness or tingling in the extremities, focal weakness, change in bowel or bladder control, seizure. MUSCULOSKELETAL: + Muscle, back pain, joint pain or stiffness. HEMATOLOGIC: + Anemia, no active bleeding or bruising. LYMPHATICS: No enlarged nodes. No history of splenectomy. PSYCHIATRIC: + History of anxiety and depression. ENDOCRINOLOGIC: No reports of sweating, cold or heat intolerance. No polyuria or polydipsia. ALLERGIES: + Hx of allergic rhinitis. Vital Signs Vital Signs Vital Signs: 11/17/23 12:06 11/17/23 13:32 Temperature 97.2 F L Temperature Source Temporal Pulse Rate 108 H 90 Respiratory Rate 26 H 14 Blood Pressure 158/81 H 110/62 Blood Pressure Mean 106 78 Pulse Ox 93 99 Oxygen Delivery Method Nasal Cannula Nasal Cannula Oxygen Flow Rate (L/min) 4 4 Weight Weight: 479 lb 8.086 oz Body Mass Index (BMI) 63.2 Physical Exam Narrative Physical Examination: General: Awake, alert, oriented x 3 and cooperative, seated upright in the ED bed in no apparent distress. Skin: Normal color, normal turgor, no icterus, no cyanosis except notable BL LE chronic stasis skin changes, chronic edema, recent scrotal cellulitis with intertrigo still noted, but no severe appearing. HEENT: AT/NC, EOMI, PERRLA, MMM, no carotid bruits, difficult to discern JVD given thickened neck. Lungs: Diminished, greater bases, appropriate effort, no rales, ronchi or wheezing. Heart: Regular rate and rhythm; no gallop, rub audible. Abdomen: Soft, morbidly obese, NTTP, distant BS, difficult to discern distention and HSM given habitus. Extremities: No cyanosis, no clubbing, see skin. Neurological: Patient awake, alert, oriented as noted, cognitive function intac t; pupils equally reactive to light and accommodation, cranial nerves grossly normal, moving all 4 extremities, no focal deficits, strength moderately to severely global decreased secondary to scrotal complaints with pain with movement lower extremities. Psychiatric: Affect appears fatigued otherwise normal, no acute evidence of depressive or anxiety feelings. But does have underlying history Results Lab / Micro Data 11/17/23 13:30 11/17/23 13:30 Labs: Laboratory Results - last 24 hr 11/17/23 13:30: WBC 17.8 H, RBC 4.38 L, Hgb 10.9 L, Hct 37.5 L, MCV 85.6, MCH 24.9 L, MCHC 29.1 L, RDW Std Deviation 49.9 H, RDW Coeff of Kris 16.2 H, Plt Count 248, MPV 8.9, Immature Gran % (Auto) 1.300 H, Neut % (Auto) 74.0 H, Lymph % (Auto) 17.2 L, [place] % (Auto) 5.2, Eos % (Auto) 1.7, Baso % (Auto) 0.6, Absolute Neuts (auto) 13.2 H, Absolute Lymphs (auto) 3.07, Nucleated RBC % 0.1, Sodium 137, Potassium 3.3 L, Chloride 100, Carbon Dioxide 33.0 H, Anion Gap 4 L, BUN 13, Creatinine 1.01, Estim Creat Clear Calc 159.58, Est GFR (MDRD) Af Amer 99, Est GFR (MDRD) Non-Af 82, BUN/Creatinine Ratio 12.9, Glucose 140 H, Calcium 8.5 Assessment & Plan Assessment/Plan (1) Adult failure to thrive: PLAN: Plan The patient is a 52 y/o M w/ PMHx: Rheumatoid arthritis, Tobacco use, Morbid obesity, COPD w/ Chronic Hypoxic Respiratory Failure (4L NC), Anxiety and Depression, Hx VTE, HTN, HLD, GERD, Hypothyroidism, Hx Chanel's gangrene, Rheumatoid arthritis, BERT, Tobacco use, IBS, Diabetes mellitus type II with chronic neuropathy, CAD s/p PCI, Chronic anemia/Fe Deficiency anemia, discharged 11/16/2023 following evaluation and treatment of scrotal cellulitis and phlegmon with urology consultation with no operative intervention with IV antibiotic therapy and ID consultation discharged on 5 days of oral doxycycline and Augmentin who now represents to the [facility] ED on 11/17/2023 with adult failure to thrive, difficulty caring for himself living at home with his mother unable to appropriately keep the scrotal region clean and dry prompting patient come back in for consideration of skilled facility placement given debility. #1. Adult FTT, Multifactorial, Recent presentation with #2, compounded by notable medical history, noted below: Will admit to [facility], maintain on fall precautions, continue treatment for scrotal recent cellulitis and edema with aggressive elevations, PT/OT/CM for evlauation for consideration SNF. #2. Recent scrotal cellulitis and phlegmon, improved: Unfortunately upon return to home patient did not elevate the scrotum and swelling continued, will aggressively elevate with pillows, use sheet to avoid skin-skin contact, given appearance no need for Urology at this time, will continue recent ID consultation, will resume oral doxycycline and augmentin, monitor CBC but if WBC rises further may need to transition to back to IV regimen. #3. HFpEF w/ Chronic BL LE Edema/Lymphedema, Stasis wounds: 03/26/2023 echocardiogram with LVEF 65%, moderately enlarged LA, mildly enlarged RA. Will continue patient aspirin, statin, metoprolol, Lasix, losartan home regimen. #3. Chronic normocytic anemia/iron deficiency anemia: Admission hemoglobin 10.9, MCV 85.6, baseline hemoglobin 9-10, stable, continue to trend. #4. Chronic COPD with chronic hypoxic respiratory failure (4L NC) and allergic rhinitis: Will maintain on home oxygen supplementation, continue ATC budesonide, PRN albuterol, HOB, IS parameters, continue patient home fluticasone regimen. #5. CAD: Status post PCI, will continue patient home baby aspirin, Pradaxa, metoprolol, losartan home regimen. #6. Diabetes mellitus type II with chronic neuropathy: Hold oral home regimen, ADA diet, accu checks w/ ISS, continue patient home chronic gabapentin regimen. #7. Hypothyroidism: We will continue patient on levothyroxine regimen. #8. Hypertension: Continue home regimen including metoprolol, losartan, lasix, PRN hydralazine. #9. Hyperlipidemia: We will continue patient on statin therapy. #10. History of VTE: We will continue patient home Pradaxa regimen. #11. Morbid Obesity: Weight loss and lifestyle changes encouraged. #12. Rheumatoid arthritis: Clarifying if patient is on chronic prednisone, will continue if using ongoing, continue home chronic oxycodone. #13. Former Tobacco Abuse: Encouraged continued cessation. #14. DVT prophylaxis: Continue patient on Pradaxa regimen. #15. CODE status: Full Code. Charges/Coding Visit Charges Inpatient E&M: 16748 Init Hosp L2
[2023-11-17 15:34] LABS: Magnesium 1.8 mg/dL (1.6-2.6)
[2023-11-17 16:00] VITALS: BP 147/81; PULSE 102; RESP 19
[2023-11-17 18:00] VITALS: BP 154/76; PULSE 80; RESP 16; O2SAT 99
[2023-11-17 18:41] VITALS: BP 154/76; PULSE 80; RESP 16; TEMP 36.1; O2SAT 99
[2023-11-17 19:39] VITALS: BMI 61.0
[2023-11-18] VITALS (14 sets, daily range): BP systolic 64–138; BP diastolic 29–78; PULSE 86–116; RESP 18–20; TEMP 36.6–37.3; O2SAT 93–98; BMI 61.2
[2023-11-18] MEDS: oxyCODONE 5 MG Tablet PO ×2 (00:17→06:03)
[2023-11-18] MEDS: Acetaminophen 325 MG Tablet 650 MG PO ×3 (00:17→14:32)
[2023-11-18] MEDS: diazePAM 5 MG Tablet PO (00:18)
[2023-11-18] MEDS: Amox/Clavulanate 875 MG Tablet PO (00:18)
[2023-11-18] MEDS: Gabapentin 100 MG Capsule PO (00:18)
[2023-11-18] MEDS: Pantoprazole Sodium 20 MG Tablet PO ×3 (00:23→22:24)
[2023-11-18] MEDS: Doxycycline 100 MG CAPSULE PO ×2 (00:23→22:21)
[2023-11-18] MEDS: Losartan Potassium 25 MG Tablet 12.5 MG PO (00:27)
[2023-11-18] MEDS: Metoprolol Tartrate 25 MG Tablet 12.5 MG PO ×2 (00:27→22:21)
[2023-11-18] MEDS: Furosemide 40 MG Tablet PO (00:30)
[2023-11-18] MEDS: Atorvastatin Calcium 40 MG Tablet PO ×2 (00:31→22:21)
[2023-11-18] MEDS: Dabigatran Etexilate Mesylate 150 MG Capsule PO ×3 (00:32→22:21)
[2023-11-18] MEDS: Morphine 2 MG/ML Syringe IV (02:45)
[2023-11-18] MEDS: Levothyroxine 150 MCG Tablet PO (06:03)
[2023-11-18] MEDS: Levothyroxine 88 MCG Tablet PO ×2 (06:03)
[2023-11-18] MEDS: Nystatin Powder 15gm Bottle 1 APPLIC TOPICAL (06:05)
[2023-11-18 06:46] LABS: Bedside Glucose 133 mg/dL (74-106)
[2023-11-18 07:39] LABS: Absolute Lymphocyte Count 2.57 X10^3/uL (0.83-4.51); Absolute Neutrophil Count 12.6 X10^3/uL (2.0-7.7); Basophil% 0.6 % (0-1); Eosinophil# 0.33 X10^3/uL; Hematocrit 34.8 % (40-54); Hemoglobin 10.1 g/dL (13.0-16.5); Lymphocyte # 2.57 X10^3/ul (0.83-4.51); Lymphocyte % 15.2 % (19-41); Mean Corpuscular Hgb 25.5 pg (27.0-32.0); Mean Corpuscular Volume 87.9 fL (80-94); Mean Platelet Vol. 8.7 fl (6.2-12.0); Monocyte# 0.93 X10^3/uL; Monocyte% 5.5 % (0-10); NRBC Flagged by Analyzer 0.2 % (0-5); Neutrophil # 12.57 X10^3/uL (2.7-7.7); Neutrophil % 74.4 % (47-70); Platelet Count 253 K/mm3 (150-450); RBC Distribution Width CV 16.3 % (11.6-14.6); RBC Distribution Width SD 51.8 fl (35.1-43.9); Red Blood Count 3.96 M/mm3 (4.6-6.2); White Blood Count 16.9 K/mm3 (4.4-11.0)
[2023-11-18] MEDS: Lactated Ringers 500 ML 999 ML IV ×2 (08:00→08:45)
[2023-11-18 08:11] LABS: ALB/GLOB Ratio 0.5 RATIO (0.9-2.4); AST(SGOT) 8 U/L (15-37); Alanine Aminotransfer ALT/SGPT 12 U/L (16-61); Albumin, Serum 1.9 g/dL (3.2-5.0); Alkaline Phosphatase 93 U/L (45-117); Anion Gap 3 (5-15); BUN 16 mg/dL (7-18); BUN/Creat Ratio 8.5 RATIO (10-20); Calcium,Total 8.3 mg/dL (8.5-10.1); Chloride 99 mmol/L (98-107); Creatinine, Serum 1.89 mg/dL (0.70-1.30); EST Glomerular Filtration Rate 40 mL/min (>60); Est Glom Filt Rate - Afr Amer 48 mL/min (>60); Estimated Creatinine Clearance 83.28 ml/min; Globulin 4.1 g/dL (2.2-4.2); Glucose 154 mg/dL (74-106); Sodium Level 135 mmol/L (136-145)
--- NOTE | 2023-11-18 08:42 | WOUNDNOTE ---
wound photo: scrotum
[2023-11-18 09:05] LABS: Lactic Acid 1.4 mmol/L (0.4-1.9)
--- NOTE | 2023-11-18 09:53 | CASEMGMT ---
Social Work SW recevied a referral that pt was readmitted for SNF placement. SW met with pt and introduced self and role of SW. Pt returned home from hospital on 11/15 where he lives with his mom. Once home pt states he realized he could not provide needed wound care and will need short term SNF prior to returning home and to prior level of independence. A list of SNF providers including quality and resource use data and consistent with the patient?s preferred geographic region, medical needs, and insurance network were provided from the [facility]. SW assisted pt in reviewing list and pt is requesting placement at [place] or [facility]. Referrals sent via [facility] and will await determination of acceptance. ULISES Layton
--- NOTE | 2023-11-18 10:17 | PCM.PN.HOSP ---
Reason for Visit Reason for Visit: Diagnoses Adult failure to thrive (11/17/23) Subjective Subjective Patient was recently hospitalized from 11/11-11/15 for cellulitis of the scrotum. Urology and infectious disease followed. CT scan done on that admission showed scrotal cellulitis but with no concern for Chanel's gangrene. Did not require any urologic procedure. Was treated with IV antibiotics with good improvement, de-escalated to p.o. antibiotics on discharge. Patient has a BMI of 61, generally has some debility at baseline and there was significant concern with him going home on discharge. However, he was adamant that he did not want to go to a rehab facility and was discharged home with home health care. He represented to [facility] on 11/16 with worsening scrotal pain and continued difficulty with ambulation. Saw patient at the bedside this morning. Patient was found to have fairly significant low blood pressures this morning. Had been restarted on his home diuretics on discharge and reported very minimal p.o. intake over the past few days, was suspected that patient had become very dry. Was given 2 L of IV fluids over the course of a few hours with moderate improvement in his blood pressure. Wound care nurse saw patient earlier this morning and noted significant concern about patient's scrotum as she felt like there was a hole in the scrotal sac that was not there a few days prior. I also noticed what appeared to be tissue breakdown at the base of the back part of the scrotum. Patient otherwise was sitting up fairly comfortably in bed and conversing normally. He did report some lightheadedness and dizziness when transferring to the edge of the bed with the assistance of therapy. Denied any fevers or chills. Denies any other acute concerns. CT abdomen pelvis was obtained later this morning and showed diffuse progressive scrotal thickening with new air formation concerning for gas-forming organism. Discussed with Dr. Gallagher with urology and unfortunately he is not available for the rest of this week. Thus, patient will need to be transferred to another facility for neurology services. Transfer in process to the [facility], hopefully to [facility] but may be to any [facility] location with Urology services available and urgent bed availability. Objective Data Objective Data Vital Signs: Vital Signs Temp Pulse Resp BP Pulse Ox O2 Del Method O2 Flow Rate 99 F 91 20 H 95/45 L 93 Nasal Cannula 4 11/18/23 08:30 11/18/23 08:30 11/18/23 08:30 11/18/23 08:30 11/18/23 08:30 11/18/23 08:30 11/18/23 08:30 Oxygen Flow Rate (L/min) 4 Oxygen Delivery Method Nasal Cannula Weight: 209.6 kg Body Mass Index (BMI) 61.2 Intake & Output: Intake and Output for Last 24 Hours 11/16/23 11/17/23 11/18/23 23:59 23:59 23:59 Intake Total 612 / 612 Output Total 300 / 300 Balance 312 / 312 Lab / Micro Data 11/18/23 07:30 11/18/23 07:30 Labs: Laboratory Results - last 24 hr 11/17/23 13:30: WBC 17.8 H, RBC 4.38 L, Hgb 10.9 L, Hct 37.5 L, MCV 85.6, MCH 24.9 L, MCHC 29.1 L, RDW Std Deviation 49.9 H, RDW Coeff of Kris 16.2 H, Plt Count 248, MPV 8.9, Immature Gran % (Auto) 1.300 H, Neut % (Auto) 74.0 H, Lymph % (Auto) 17.2 L, [place] % (Auto) 5.2, Eos % (Auto) 1.7, Baso % (Auto) 0.6, Absolute Neuts (auto) 13.2 H, Absolute Lymphs (auto) 3.07, Nucleated RBC % 0.1, Sodium 137, Potassium 3.3 L, Chloride 100, Carbon Dioxide 33.0 H, Anion Gap 4 L, BUN 13, Creatinine 1.01, Estim Creat Clear Calc 159.58, Est GFR (MDRD) Af Amer 99, Est GFR (MDRD) Non-Af 82, BUN/Creatinine Ratio 12.9, Glucose 140 H, Calcium 8.5, Magnesium 1.8 11/18/23 06:14: POC Glucose 133 H 11/18/23 07:30: WBC 16.9 H, RBC 3.96 L, Hgb 10.1 L, Hct 34.8 L, MCV 87.9, MCH 25.5 L, MCHC 29.0 L, RDW Std Deviation 51.8 H, RDW Coeff of Kris 16.3 H, Plt Count 253, MPV 8.7, Immature Gran % (Auto) 2.300 H, Neut % (Auto) 74.4 H, Lymph % (Auto) 15.2 L, [place] % (Auto) 5.5, Eos % (Auto) 2.0, Baso % (Auto) 0.6, Absolute Neuts (auto) 12.6 H, Absolute Lymphs (auto) 2.57, Nucleated RBC % 0.2, Sodium 135 L, Potassium 4.0, Chloride 99, Carbon Dioxide 33.0 H, Anion Gap 3 L, BUN 16, Creatinine 1.89 H, Estim Creat Clear Calc 83.28, Est GFR (MDRD) Af Amer 48 L, Est GFR (MDRD) Non-Af 40 L, BUN/Creatinine Ratio 8.5 L, Glucose 154 H, Calcium 8.3 L, Total Bilirubin 0.70, AST 8 L, ALT 12 L, Alkaline Phosphatase 93, Total Protein 6.0 L, Albumin 1.9 L, Globulin 4.1, Albumin/Globulin Ratio 0.5 L 11/18/23 08:10: Lactic Acid 1.4 Physical Exam Const alert, oriented x3 and no apparent distress Constitutional Narrative: Morbidly obese. General Appearance: cooperative and comfortable HEENT normocephalic, head/scalp atraumatic, hearing grossly normal bilaterally and nasal mucous membranes and turbinates normal Mouth: dry mucous membranes Eyes PERRL, EOMs intact bilaterally and conjunctivae normal Neck full ROM Chest inspection of chest normal Resp normal respiratory effort, normal air movement, no use of accessory muscles and clear to auscultation bilaterally Cardio regular rate, regular rhythm, no murmurs and peripheral pulses 2+ throughout GI normal to inspection, nondistended, normoactive bowel sounds, soft to palpation, non-tender and non-distended Narrative: Large area of skin breakdown noted at the base of the scrotum. Appears erythematous. No active drainage noted. Back/Spine normal ROM Extremity normal to inspection, full ROM and no pedal edema Skin no rashes or lesions noted Neuro no focal motor deficits and no sensory deficits noted Speech: speech normal Psych mental status grossly normal Assessment & Plan Assessment/Plan (1) Adult failure to thrive: (2) Chanel's gangrene: (3) Testicular/scrotal pain: PLAN: Plan Patient is a 53-year-old male who presented to [facility] ED on 11/17/2023 for recurrent scrotal pain with edema and generalized weakness. 1. 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 CT abdomen pelvis without contrast on 11/17 showed new diffuse progressive scrotal thickening with air concerning for gas-forming organism compared to scan from 11/11. Infectious disease following, continue treatment with IV Unasyn, clindamycin and p.o. doxycycline. Dr. Gallagher with Urology unfortunately is not available this week. Transfer to a [facility] for urology services in process. 2. Hypotension, improving ? Noted to be hypotensive on morning of 11/17. Improved with 2 L of IV fluids. Suspect hypotension was more likely secondary to hypovolemia from home diuretics and recent poor p.o. intake rather than sepsis secondary to suspected secondary to Chanel's gangrene as noted above. Notably, lactate only 1.4. Holding home diuretics and blood pressure medications. Continue to monitor closely, encouraged p.o. intake, can consider giving further small boluses of IV fluids as needed. 3. SARAH ? Creatinine up trended from 1.01 on 11/16 to 1.89 on 11/17. Suspect this was secondary to hypotension in setting of hypovolemia as noted above. Given IV fluid resuscitation as noted above. Monitor daily BMP and urine output. 4. Debility ? PT/OT/case management following. Recommendation was going to be for SNF placement on discharge, however patient will be transferring to outside facility. Chronic medical conditions: - Morbid obesity: BMI 61 on admit. Complicates hospital course, care and prognosis. Encouraged lifestyle modifications. Patient also noted recently discussion GLP-1 medication w/ PCP, seems like he would be a good candidate, encouraged close outpatient follow up. - HTN, HLD, bilateral lymphedema, nonobstructive CAD, chronic HFpEF: Last echo in 03/2023 showed EF 65%, LA moderately enlarged, RA mildly enlarged. Continue home aspirin and statin. Holding home Lasix, losartan and Lopressor as noted above. - Chronic Afib: Stable. Continue home Pradaxa, holding home Lopressor. - GERD: Stable. Continue home PPI. - RA: Stable. Continue home prednisone 10 mg BID. - T2DM: Sliding-scale insulin while inpatient. - Hypothyroidism: Continue home Synthroid. Total clinical time spent by myself addressing the patient's medical issues, reviewing all the data, and collaborating with patient's care team: 50 minutes. Charges/Coding Visit Charges Inpatient E&M: 33055 [facility] Hosp L3
--- NOTE | 2023-11-18 10:26 | CT_ITS ---
STUDY: CT ABDOMEN AND PELVIS WITHOUT CONTRAST REASON FOR EXAM: Male, 53 years old. Reevaluate scrotal/perineal phlegmon RADIATION DOSAGE (If Supplied By Facility): CTDIvol = ( 34.43 ) mGy, DLP = ( 3322.49 ) mGycm TECHNIQUE: Transaxial images were obtained from the dome of the diaphragm to the symphysis pubis without oral contrast, and without intravenous contrast. Sagittal and coronal images were reconstructed. Individualized dose optimization techniques were used for this CT. COMPARISON: Comparison is made with prior study dated November 12, 2023. FINDINGS: Residual mild degree of bibasilar atelectasis. A dual-chamber pacemaker is seen. Coronary artery calcification. Normal liver. Mildly distended gallbladder. Findings suggestive of sludge within the gallbladder lumen. There are multiple benign calcified granulomata of the spleen. Normal pancreas. Normal bilateral adrenal glands. Normal right kidney. Findings suggestive of a 3.8 cm x 3.7 cm cyst in the lateral aspect of the left kidney. Normal visualized stomach. Normal small intestine. There are multiple colonic diverticula consistent with diverticulosis. The appendix is visualized and appears normal. There is scattered atherosclerotic calcification of the abdominal aorta, without a demonstrated aneurysm. Normal inferior vena cava. Normal retroperitoneum. Normal urinary bladder. Central prostatic calcification. Since prior study, there has been progression of the scrotal thickening especially towards the perineum. There now is evidence of air within the previously seen collections in the peritoneum. This may represent either progressive inflammatory change versus postsurgical changes. Clinical correlation recommended. Is also evidence of a 3.4 cm x 1.5 cm linear soft tissue density in the inferior medial aspect of the left perineum adjacent to the gluteus region. This has progressed as compared to prior study. There are diffuse degenerative changes of the visualized lumbar spine. CT/Abdomen/Pelvis without Cont IMPRESSION: There now is evidence of diffuse progressive scrotal thickening with the air in the previously seen soft tissue densities in the peritoneum suggestive of either prior surgical incision versus gas-forming organism. The remainder of the examination is unchanged. Electronically Signed: Hieu Garcia MD at 12:45 EDT ,
[2023-11-18] MEDS: Lactated Ringers 1,000 ML 500 ML IV (10:30)
[2023-11-18] MEDS: Ascorbic Acid 500 MG Tablet PO (10:31)
[2023-11-18] MEDS: Aspirin E.C. 81 MG Tablet PO (10:31)
[2023-11-18 12:20] LABS: Bedside Glucose 154 mg/dL (74-106)
[2023-11-18] MEDS: Vancomycin HCl 2,000 MG in 0.9% Normal Saline (500mL Bag) 500 ML 250 MG IV (12:26)
[2023-11-18] MEDS: 0.9% Saline Lock 10 ML Syringe IV ×2 (12:26→23:05)
--- NOTE | 2023-11-18 12:53 | PCM.RX.CS ---
Consult Antibiotic Management Pharmacy has been consulted to manage selected antibiotic: Vancomycin Type of Intervention Type of Consult: New start Suspected Infection Suspected Infection: Skin/Soft tissue Prior Doses of Antibiotics Prior Doses of Antibiotics Received/Current Regimen: the patient was most recently on vanc 1750mg IV q12h a couple days ago before he was discharged Labs Labs: Sodium 135 mmol/L (136-145) L 11/18/23 07:30 Potassium 4.0 mmol/L (3.5-5.1) 11/18/23 07:30 Chloride 99 mmol/L (98-107) 11/18/23 07:30 Carbon Dioxide 33.0 mmol/L (21.0-32.0) H 11/18/23 07:30 Anion Gap 3 (5-15) L 11/18/23 07:30 BUN 16 mg/dL (7-18) 11/18/23 07:30 Creatinine 1.89 mg/dL (0.70-1.30) H 11/18/23 07:30 Est GFR (MDRD) Af Amer 48 mL/min (>60) L 11/18/23 07:30 Est GFR (MDRD) Non-Af 40 mL/min (>60) L 11/18/23 07:30 BUN/Creatinine Ratio 8.5 RATIO (10-20) L 11/18/23 07:30 Glucose 154 mg/dL (74-106) H 11/18/23 07:30 Dosing Weight Weight used for dosin.6 kg Estimated Creatinine Clearance Estimated Creatinine Clearance: 83 ml/min Goal Trough Goal Trough: 15-20 mcg/mL Pharmacy Plan for Drug Dosing Pharmacy Plan for Drug Dosing: Give initial load dose of 2000mg IV x1 as ordered, then continue with 1500mg IV q12h. Recommending to start with the 1500mg q12h dose rather than the patient's previous dose of 1750mg q12h since the last trough the patient had drawn for the 1750mg dose was just above 20 and since the patient's SCr today was at 1.89 (up from 1.01 yesterday). Will need to continue to monitor renal function. Will check a trough before the 4th total dose tomorrow night. Pharmacy Service will continue to monitor and adjust dosing as required. Follow-Up Labs Follow-Up Labs: Trough: Vancomycin Date/Time Labs Ordered Labs to be done on [date and time ordered]: 11/19/23 23:30
--- NOTE | 2023-11-18 13:37 | CON.PCM.ID_ITS ---
Assessment & Plan Assessment/Plan (1) Cellulitis, scrotum: PLAN: Will narrow back to doxy and unasyn. Will follow, thank you HPI Consult Data Date of Consult: 11/18/23 HPI Narrative Reason for Consultation: scrotal cellulitis HPI Narrative: CAYLA GRANADOS, is a 53 M with recurrent scrotal cellulitis. Discharged from here 11/15, came back next day, was unable to care for self, had worsened swelling and pain. no fever, no n/v.d. Admitted on vanc/zosyn, feeling better today. Full ROS performed and neg except as noted above. [facility] Medical History Anemia Anxiety Atherosclerotic heart disease of [place] coronary artery without angina pectoris Atrial fibrillation Chest pain Chronic hypoxemic respiratory failure Chronic pain Chronic prescription benzodiazepine use Chronic steroid use Colon polyps COPD (chronic obstructive pulmonary disease) Depression Diabetes DVT (deep venous thrombosis) Essential hypertension Family history of premature CAD Former smoker GERD (gastroesophageal reflux disease) Goiter History of Chanel's gangrene HLD (hyperlipidemia) Hypothyroidism Hypothyroidism IBS (irritable bowel syndrome) Intertrigo Kidney stones Left against medical advice Leg pain Myocardial infarct Non-healing surgical wound NSTEMI, initial episode of care On home oxygen therapy BERT (obstructive sleep apnea) Pacemaker Pain in scapula PTSD (post-traumatic stress disorder) Rheumatoid arthritis Sleep apnea Smoker Super obesity Superficial thrombophlebitis of leg Type 2 diabetes mellitus Ulcer of scrotum Home Medications diazepam 10 mg tablet (Valium) 5 mg PO 4X/DAY PRN Anxiety 03/03/16 [History Last Taken 08/15/22] albuterol sulfate 90 mcg/actuation aerosol inhaler (Ventolin HFA) 1 - 2 puff inhalation UD PRN Sob &/Or Wheezing 07/07/20 [History Last Taken 08/11/22] ascorbic acid (vitamin C) 500 mg capsule 500 mg PO DAILY SUPPLEMENT 07/07/20 [History Last Taken 03/26/23] gabapentin 100 mg capsule 100 mg PO QHS PRN neuropathy 07/07/20 [History Last Taken 03/25/23] omeprazole 20 mg capsule,delayed release 20 mg PO BID ACID REFLUX 07/07/20 [History Last Taken 03/26/23] glipizide 2.5 mg tablet, extended release 24 hr 2.5 mg PO BID DIABETES 09/06/21 [History Last Taken 03/26/23] ammonium lactate 12 % topical cream 1 applic topical BID LEGS 08/16/22 [History Last Taken 03/26/23] aspirin 81 mg tablet,delayed release 81 mg PO DAILY HEART HEALTH 08/16/22 [History Last Taken 03/26/23] atorvastatin 40 mg tablet 40 mg PO QHS CHOLESTEROL 08/16/22 [History Last Taken 03/25/23] bumetanide 1 mg tablet 1 mg PO DAILY PRN FLUID 08/16/22 [History Last Taken Unknown] dabigatran etexilate 150 mg capsule (Pradaxa) 150 mg PO BID BLOOD THINNER 08/16/22 [History Last Taken 03/26/23] fluticasone propionate 50 mcg/actuation nasal spray,suspension 2 spray intranasal DAILY PRN Nasal Congestion 08/16/22 [History Last Taken Unknown] levothyroxine 150 mcg tablet 150 mcg PO DAILY THYROID 08/16/22 [History Last Taken 03/26/23] losartan 25 mg tablet 12.5 mg PO BID BLOOD PRESSURE 08/16/22 [History Last Taken 03/26/23] metoprolol tartrate 25 mg tablet 12.5 mg PO BID BLOOD PRESSURE 08/16/22 [History Last Taken 03/26/23] miconazole nitrate 2 % topical cream 1 applic topical BID FUNGAL INFECTION 08/16/22 [History Last Taken 03/26/23] nystatin 100,000 unit/gram topical powder (Nyamyc) 1 applic topical BID SKIN FOLDS 08/16/22 [History Last Taken 03/26/23] prednisone 10 mg tablet 10 mg PO BID STEROID 08/16/22 [History Last Taken 03/26/23] furosemide 20 mg tablet 80 mg PO DAILY directic 06/27/23 [History Last Taken Unknown] furosemide 40 mg tablet (Lasix) 40 mg PO 1700 fluid 06/27/23 [History Last Taken Unknown] levothyroxine 88 mcg tablet 88 mcg PO DAILY hypothyroidism 06/27/23 [History Last Taken Unknown] amoxicillin 875 mg-potassium clavulanate 125 mg tablet 1 tab PO BID #10 tabs 11/16/23 [Rx Last Taken Unknown] doxycycline hyclate 100 mg capsule 100 mg PO BID #10 caps 11/16/23 [Rx Last Take n Unknown] oxycodone 5 mg tablet 5 mg PO Q6H PRN pain 3 days #12 tabs 11/16/23 [Rx Last Taken Unknown] Allergy/AdvReac Type Severity Reaction Status Date / Time Penicillins Allergy Hives Verified 11/12/23 13:38 red dye Allergy Hives Verified 11/12/23 13:38 etanercept [From Enbrel] AdvReac Swelling Verified 11/12/23 13:38 rivaroxaban [From Xarelto] AdvReac Nausea Verified 11/12/23 13:38 warfarin sodium AdvReac Nausea Verified 11/12/23 13:38 [From Coumadin] Family History (Updated 11/17/23 @ 19:[address] Mary Roberson MD) Mother Cancer Heart disease Kidney disease Hypertension Father Cancer Heart disease Kidney disease Hypertension Surgical History History of coronary artery stent placement (03/25/21) Social History (Updated 11/17/23 @ 19:[address] Mary Roberson MD) household members: family Smoking Status: Former smoker alcohol intake: never substance use type: does not use Physical Exam Const alert, oriented x3 and no apparent distress General Appearance: cooperative HEENT normocephalic and head/scalp atraumatic Eyes PERRL and EOMs intact bilaterally Neck supple and No nodes Resp normal air movement and clear to auscultation bilaterally Cardio regular rate and regular rhythm GI soft to palpation, non-tender and non-distended Extremity General Extremity: edema Skin Skin Narrative: scrotal swelling, mild tenderness, warmth Neuro CN's II-XII intact bilaterally Lab / Micro Data Attestation: I reviewed the patient's lab results. 11/18/23 07:30 11/18/23 07:30 Labs: Laboratory Results - last 24 hr 11/17/23 13:30: WBC 17.8 H, RBC 4.38 L, Hgb 10.9 L, Hct 37.5 L, MCV 85.6, MCH 24.9 L, MCHC 29.1 L, RDW Std Deviation 49.9 H, RDW Coeff of Kris 16.2 H, Plt Count 248, MPV 8.9, Immature Gran % (Auto) 1.300 H, Neut % (Auto) 74.0 H, Lymph % (Auto) 17.2 L, Turner % (Auto) 5.2, Eos % (Auto) 1.7, Baso % (Auto) 0.6, Absolute Neuts (auto) 13.2 H, Absolute Lymphs (auto) 3.07, Nucleated RBC % 0.1, Sodium 137, Potassium 3.3 L, Chloride 100, Carbon Dioxide 33.0 H, Anion Gap 4 L, BUN 13, Creatinine 1.01, Estim Creat Clear Calc 159.58, Est GFR (MDRD) Af Amer 99, Est GFR (MDRD) Non-Af 82, BUN/Creatinine Ratio 12.9, Glucose 140 H, Calcium 8.5, Magnesium 1.8 11/18/23 06:14: POC Glucose 133 H 11/18/23 07:30: WBC 16.9 H, RBC 3.96 L, Hgb 10.1 L, Hct 34.8 L, MCV 87.9, MCH 25.5 L, MCHC 29.0 L, RDW Std Deviation 51.8 H, RDW Coeff of Kris 16.3 H, Plt Count 253, MPV 8.7, Immature Gran % (Auto) 2.300 H, Neut % (Auto) 74.4 H, Lymph % (Auto) 15.2 L, Turner % (Auto) 5.5, Eos % (Auto) 2.0, Baso % (Auto) 0.6, Absolute Neuts (auto) 12.6 H, Absolute Lymphs (auto) 2.57, Nucleated RBC % 0.2, Sodium 135 L, Potassium 4.0, Chloride 99, Carbon Dioxide 33.0 H, Anion Gap 3 L, BUN 16, Creatinine 1.89 H, Estim Creat Clear Calc 83.28, Est GFR (MDRD) Af Amer 48 L, Est GFR (MDRD) Non-Af 40 L, BUN/Creatinine Ratio 8.5 L, Glucose 154 H, Calcium 8.3 L, Total Bilirubin 0.70, AST 8 L, ALT 12 L, Alkaline Phosphatase 93, Total Protein 6.0 L, Albumin 1.9 L, Globulin 4.1, Albumin/Globulin Ratio 0.5 L 11/18/23 08:10: Lactic Acid 1.4 11/18/23 11:58: POC Glucose 154 H Imaging Radiology Impression Abdomen/Pelvis CT 11/18/23 10:26 IMPRESSION: There now is evidence of diffuse progressive scrotal thickening with the air in the previously seen soft tissue densities in the peritoneum suggestive of either prior surgical incision versus gas-forming organism. The remainder of the examination is unchanged. Electronically Signed: Hieu Garcia MD at 12:45 EDT ,
--- NOTE | 2023-11-18 14:59 | CASEMGMT ---
RN CM Readmission Note Previous Admission:11/12/23-11/16/23 Diagnosis: scrotal cellulitis with phlegmon DC Disposition: Home Current Admission: 11/17/23 Current Diagnosis:recurrent scrotal cellulitis, Adult FTT Pt dc'd on index admission to home. Pt denied need for HHC after preferred choices declined. Pt did not have any wound care ordered. Pt called RN COTY day after dc stating he had drainage from scrotum and could not care for self at home. Pt directed to call physician, pt readmitted. Pt had reported taking one antibiotic and was to scrap picker the other the day after dc. Pt agreeable to SNF for s/t. SW following. DC Plan: SNF
[2023-11-18] MEDS: Ampicillin/Sulbactam 3 GM in 0.9% Normal Saline (100mL MB+) 100 ML IV ×2 (15:01→22:48)
--- NOTE | 2023-11-18 15:12 | CASEMGMT ---
Social Work- Pt was accepted for a private room at [facility]. Pt advised of acceptance. Pt being transferred to [facility]. [facility] advised via [facility] of pt's transfer and advised to disregard referral at this time.
--- NOTE | 2023-11-18 16:30 | DCINST_ITS ---
Discharge Instructions Diet Discharge Diet: 1999 Calorie Control Diet Follow Up Care Test Results: Test results from this visit will be discussed in further detail at your follow- up appointment, if applicable. Discharge Plan Admission Admit Date/Time: 11/17/23 14:54 Primary Reason for Your Visit: Recurrent scrotal edema with pain Attending Provider: Forrest Bruce Primary Care Provider: Ida Norris Consulting Providers: Avinash Woods; Mary Roberson Discharge Orders/Prescriptions Prescriptions: New ampicillin-sulbactam 3 gram Recon Soln 3 g IV Q8 Qty: 0 0RF doxycycline monohydrate 100 mg Capsule 100 mg PO BID Qty: 0 0RF clindamycin in 5 % dextrose 600 mg/50 mL Piggyback 600 mg IV Q6 Qty: 0 0RF Continued glipizide 2.5 mg tablet extended release 24hr 2.5 mg PO BID diazepam [Valium] 10 MG tablet 5 mg PO 4X/DAY PRN (Reason: Anxiety) omeprazole 20 MG capsule,delayed release(DR/EC) 20 mg PO BID gabapentin 100 MG capsule 100 mg PO QHS PRN (Reason: neuropathy) Patient Comments: 100-200mg albuterol sulfate [Ventolin HFA] 1 INHALER inhaler 1 - 2 puff INHALATION UD PRN (Reason: Sob &/Or Wheezing) Rx Instructions: INHALE 1 TO 2 PUFFS BY MOUTH AND INTO THE LUNGS EVERY 4 TO 6 HOURS NEEDED ascorbic acid (vitamin C) 500 MG capsule 500 mg PO DAILY prednisone 10 mg Tablet 10 mg PO BID miconazole nitrate 2 % cream 1 applic TOPICAL BID Patient Comments: apply to affected area twice a day aspirin 81 mg tablet,delayed release (DR/EC) 81 mg PO DAILY levothyroxine 150 mcg tablet 150 mcg PO DAILY Patient Comments: take 2 tablets by mouth once daily bumetanide 1 mg tablet 1 mg PO DAILY PRN (Reason: FLUID) ammonium lactate 12 % cream 1 applic TOPICAL BID nystatin [Nyamyc] 100,000 unit/gram powder 1 applic TOPICAL BID Patient Comments: apply to affected area once daily to twice a day fluticasone propionate 50 mcg/actuation spray,suspension 2 spray INTRANASAL DAILY PRN (Reason: Nasal Congestion) Patient Comments: instill 2 sprays into each nostril once daily atorvastatin 40 mg tablet 40 mg PO QHS metoprolol tartrate 25 mg tablet 12.5 mg PO BID dabigatran etexilate [Pradaxa] 150 mg capsule 150 mg PO BID Rx Instructions: take 1 pill (150mg) in the morning then take 1 pill in the evening (150mg) for a total of 300mg. levothyroxine 88 mcg tablet 88 mcg PO DAILY Rx Instructions: take with 150mg tab oxycodone 5 mg tablet 5 mg PO Q6H PRN (Reason: pain) 3 Days Qty: 12 0RF Held losartan 25 mg tablet 12.5 mg PO BID Hold Instructions: Resume on 12/02/23. furosemide 20 mg tablet 80 mg PO DAILY Hold Instructions: Resume on 12/02/23. Patient Comments: 80mg in am and 40mg at 1700 furosemide [Lasix] 40 mg tablet 40 mg PO 1700 Hold Instructions: Resume on 12/02/23. Discontinued doxycycline hyclate 100 mg capsule 100 mg PO BID Qty: 10 0RF amoxicillin-pot clavulanate 875-125 mg tablet 1 tab PO BID Qty: 10 0RF Referrals / Follow Up: Ida Norris DO [Primary Care Provider] - Disposition Disposition (needs filled in before D/C Order can be placed): [facility]
[2023-11-18] MEDS: Clindamycin 600 MG/50 ML BAG 100 MG IV (16:52)
[2023-11-18] MEDS: predniSONE 10 MG Tablet PO (22:22)
[2023-11-18] MEDS: Ondansetron 4 MG/2 ML Vial IV (23:05)
[2023-11-19] VITALS (11 sets, daily range): BP systolic 105–158; BP diastolic 46–82; PULSE 75–88; RESP 16–18; TEMP 36.1–36.9; O2SAT 92–98; BMI 61.1
[2023-11-19] MEDS: 0.9% Normal Saline (250mL Bag) 250 ML 15 ML IV (00:22)
[2023-11-19] MEDS: Clindamycin 600 MG/50 ML BAG 100 MG IV ×4 (00:22→23:54)
[2023-11-19] MEDS: proCHLORPERazine 10 MG/2 ML Vial 5 MG IV (01:28)
--- NOTE | 2023-11-19 01:29 | NURSING ---
2300 pt had a small emesis at this time of approximately 25-50cc. staff changed bed linens and adriana rn to give zofran. pt had refused to have blood sugar and sliding scale insulin given earlier in the shift. 0100 pt still reports nausea and rn made aware. blood sugar taken and was found to be 157. pt stated earlier that he had a head ache and had refused medication when offered. pt was offered again and pt continued to decline stated he though he would throw it up.
[2023-11-19 02:01] LABS: Bedside Glucose 157 mg/dL (74-106)
[2023-11-19] MEDS: oxyCODONE 5 MG Tablet PO (02:58)
[2023-11-19] MEDS: Acetaminophen 325 MG Tablet 650 MG PO (02:59)
[2023-11-19] MEDS: Levothyroxine 150 MCG Tablet PO (06:02)
[2023-11-19] MEDS: Levothyroxine 88 MCG Tablet PO (06:07)
[2023-11-19] MEDS: Ampicillin/Sulbactam 3 GM in 0.9% Normal Saline (100mL MB+) 100 ML IV (06:48)
[2023-11-19 06:58] LABS: Hematocrit 33.5 % (40-54); Hemoglobin 9.4 g/dL (13.0-16.5); Mean Corp Hgb Conc 28.1 g/dL (32-36); Mean Corpuscular Hgb 24.9 pg (27.0-32.0); Mean Corpuscular Volume 88.9 fL (80-94); Platelet Count 262 K/mm3 (150-450); RBC Distribution Width CV 16.3 % (11.6-14.6); RBC Distribution Width SD 52.5 fl (35.1-43.9); Red Blood Count 3.77 M/mm3 (4.6-6.2); White Blood Count 16.1 K/mm3 (4.4-11.0)
[2023-11-19 07:29] LABS: Anion Gap 2 (5-15); BUN 14 mg/dL (7-18); BUN/Creat Ratio 14.4 RATIO (10-20); Calcium,Total 8.2 mg/dL (8.5-10.1); Chloride 98 mmol/L (98-107); Creatinine, Serum 0.98 mg/dL (0.70-1.30); EST Glomerular Filtration Rate 85 mL/min (>60); Est Glom Filt Rate - Afr Amer 103 mL/min (>60); Estimated Creatinine Clearance 160.37 ml/min; Glucose 174 mg/dL (74-106); Potassium 4.2 mmol/L (3.5-5.1); Sodium Level 132 mmol/L (136-145)
--- NOTE | 2023-11-19 07:35 | PCA ---
pt being transferred to [facility], accepting physician Dr. Felix Slater , still no bed available
--- NOTE | 2023-11-19 10:25 | PCM.PN.ID ---
Physical Exam Narrative Pain and swelling improved today, no fever, no n/v/d. Const alert and no apparent distress General Appearance: cooperative Resp normal air movement and clear to auscultation bilaterally Cardio regular rate and regular rhythm Extremity General Extremity: edema Skin Skin Narrative: scrotum less red today ID ID: Route of nutrition/ use of supplements: [] Nutritional Intake: [] IV Site: [] Sky Catheter: [] Assessment & Plan Assessment/Plan (1) Cellulitis, scrotum: (2) Grecia's gangrene: PLAN: CT showed grecia's. Transfer planned. Covering with clinda, vanc/zosyn for now. will follow
[2023-11-19] MEDS: predniSONE 10 MG Tablet PO ×2 (10:43→18:24)
--- NOTE | 2023-11-19 11:16 | PCM.PN.HOSP ---
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 Patient seen at bedside this morning. Sitting up comfortably in bed, in no acute distress. Patient feels mild to moderately better today than yesterday. He states that the wound care nurse saw him earlier this morning and noted that his scrotum appears to be improving from yesterday. He denies any fevers or chills. His main concern right now is that the right arm midline has been bothering him and he would like for it to be removed. Had 5 to 10-minute discussion with him regarding the need to transfer him, as he was feeling this morning he did not want to be transferred. I told him that given the gas permission in the scrotum that is concerning for Chanel's gangrene, even if he is improving on antibiotics, I cannot send him home without him having a surgical evaluation. Therefore, he will need to be transferred for that surgical evaluation. He was understanding and agreeable to this. No other acute concerns morning. Objective Data Objective Data Vital Signs: Vital Signs Temp Pulse Resp BP Pulse Ox O2 Del Method O2 Flow Rate 97.0 F L 76 16 105/82 H 97 Nasal Cannula 4 11/19/23 08:59 11/19/23 08:59 11/19/23 08:59 11/19/23 08:59 11/19/23 08:59 11/19/23 08:59 11/19/23 08:59 Oxygen Flow Rate (L/min) 4 Oxygen Delivery Method Nasal Cannula Weight: 209.1 kg Body Mass Index (BMI) 61.1 Intake & Output: Intake and Output for Last 24 Hours 11/17/23 11/18/23 11/19/23 23:59 23:59 23:59 Intake Total 2926.00 / 2926.00 462 / 462 Output Total 550 / 800 550 / 550 Balance 2376.00 / 2126.00 -88 / -88 Lab / Micro Data 11/19/23 06:31 11/19/23 06:31 Labs: Laboratory Results - last 24 hr 11/18/23 11:58: POC Glucose 154 H 11/19/23 01:26: POC Glucose 157 H 11/19/23 06:31: WBC 16.1 H, RBC 3.77 L, Hgb 9.4 L, Hct 33.5 L, MCV 88.9, MCH 24.9 L, MCHC 28.1 L, RDW Std Deviation 52.5 H, RDW Coeff of Kris 16.3 H, Plt Count 262, MPV 9.0, Sodium 132 L, Potassium 4.2, Chloride 98, Carbon Dioxide 32.0, Anion Gap 2 L, BUN 14, Creatinine 0.98, Estim Creat Clear Calc 160.37, Est GFR (MDRD) Af Amer 103, Est GFR (MDRD) Non-Af 85, BUN/Creatinine Ratio 14.4, Glucose 174 H, Calcium 8.2 L Radiography Diagnostic Testing: Radiology Impression Abdomen/Pelvis CT 11/18/23 10:26 IMPRESSION: There now is evidence of diffuse progressive scrotal thickening with the air in the previously seen soft tissue densities in the peritoneum suggestive of either prior surgical incision versus gas-forming organism. The remainder of the examination is unchanged. Electronically Signed: Hieu Garcia MD at 12:45 EDT , Physical Exam Const alert, oriented x3 and no apparent distress Constitutional Narrative: Morbidly obese. General Appearance: cooperative and comfortable HEENT normocephalic, head/scalp atraumatic, hearing grossly normal bilaterally and nasal mucous membranes and turbinates normal Mouth: dry mucous membranes Eyes PERRL, EOMs intact bilaterally and conjunctivae normal Neck full ROM Chest inspection of chest normal Resp normal respiratory effort, normal air movement, no use of accessory muscles and clear to auscultation bilaterally Cardio regular rate, regular rhythm, no murmurs and peripheral pulses 2+ throughout GI normal to inspection, nondistended, normoactive bowel sounds, soft to palpation, non-tender and non-distended Narrative: Large area of skin breakdown noted at the base of the scrotum. Improving from yesterday. See wound care note for further details. Back/Spine normal ROM Extremity normal to inspection, full ROM and no pedal edema Skin no rashes or lesions noted Neuro no focal motor deficits and no sensory deficits noted Speech: speech normal Psych mental status grossly normal Assessment & Plan Assessment/Plan (1) Adult failure to thrive: (2) Chanel's gangrene: (3) Testicular/scrotal pain: PLAN: Plan Patient is a 53-year-old male who presented to [facility] ED on 11/17/2023 for recurrent scrotal pain with edema and generalized weakness. 1. 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 CT abdomen pelvis without contrast on 11/17 showed new diffuse progressive scrotal thickening with air concerning for gas-forming organism compared to scan from 11/11. Infectious disease following, continue treatment with IV Unasyn, clindamycin and p.o. doxycycline. Patient has been hemodynamically stable and afebrile, no concern for sepsis or septic shock at this time. Improving with antibiotics. Dr. Gallagher with Urology unfortunately is not available this week. Will be transferred to a [facility] facility for urology services once a bed becomes available. 2. Hypotension, improved ? Noted to be hypotensive on morning of 11/17. Improved with 2 L of IV fluids, and remains improved on 11/18. Suspect hypotension was more likely secondary to hypovolemia from home diuretics and recent poor p.o. intake rather than sepsis secondary to suspected secondary to Chanel's gangrene as noted above. Notably, lactate only 1.4. Holding home diuretics and blood pressure medications. Continue to monitor closely, encouraged p.o. intake, can consider giving further small boluses of IV fluids as needed. 3. SARAH, resolved ? Creatinine up trended from 1.01 on 11/16 to 1.89 on 11/17. Suspect this was secondary to hypotension in setting of hypovolemia as noted above. Given IV fluid resuscitation as noted above. Repeat creatinine 0.89 on 11/18. Resolved. 4. Debility ? PT/OT/case management following. Recommendation was going to be for SNF placement on discharge, however patient will be transferring to outside facility. Chronic medical conditions: - Morbid obesity: BMI 61 on admit. Complicates hospital course, care and prognosis. Encouraged lifestyle modifications. Patient also noted recently discussion GLP-1 medication w/ PCP, seems like he would be a good candidate, encouraged close outpatient follow up. - HTN, HLD, bilateral lymphedema, nonobstructive CAD, chronic HFpEF: Last echo in 03/2023 showed EF 65%, LA moderately enlarged, RA mildly enlarged. Continue home aspirin and statin. Holding home Lasix, losartan and Lopressor as noted above. - Chronic Afib: Stable. Continue home Pradaxa, holding home Lopressor. - GERD: Stable. Continue home PPI. - RA: Stable. Continue home prednisone 10 mg BID. - T2DM: Sliding-scale insulin while inpatient. - Hypothyroidism: Continue home Synthroid. Total clinical time spent by myself addressing the patient's medical issues, reviewing all the data, and collaborating with patient's care team: 35 minutes. Charges/Coding Visit Charges Inpatient E&M: 98376 Subs Hosp L2
[2023-11-19] MEDS: Vancomycin HCl 1,500 MG in 0.9% Normal Saline (500mL Bag) 500 ML 250 MG IV ×2 (11:39→20:13)
[2023-11-19] MEDS: Aspirin E.C. 81 MG Tablet PO (11:44)
[2023-11-19] MEDS: Metoprolol Tartrate 25 MG Tablet 12.5 MG PO ×2 (11:45→21:39)
[2023-11-19] MEDS: Dabigatran Etexilate Mesylate 150 MG Capsule PO ×2 (11:46→21:39)
[2023-11-19] MEDS: Ascorbic Acid 500 MG Tablet PO (11:46)
[2023-11-19] MEDS: Pantoprazole Sodium 20 MG Tablet PO ×2 (11:46→21:41)
--- NOTE | 2023-11-19 12:23 | PCM.RX.CS ---
Consult Antibiotic Management Pharmacy has been consulted to manage selected antibiotic: Vancomycin Type of Intervention Type of Consult: New start Suspected Infection Suspected Infection: Osteomyelitis Prior Doses of Antibiotics Prior Doses of Antibiotics Received/Current Regimen: Patient was given a loading dose 11/18/23 @ 1225 then vancomycin was discontinued. Started Vancomycin 1500mg every 8 hours on 11/19/23 @ 1130 Labs Labs: Sodium 132 mmol/L (136-145) L 11/19/23 06:31 Potassium 4.2 mmol/L (3.5-5.1) 11/19/23 06:31 Chloride 98 mmol/L (98-107) 11/19/23 06:31 Carbon Dioxide 32.0 mmol/L (21.0-32.0) 11/19/23 06:31 Anion Gap 2 (5-15) L 11/19/23 06:31 BUN 14 mg/dL (7-18) 11/19/23 06:31 Creatinine 0.98 mg/dL (0.70-1.30) 11/19/23 06:31 Est GFR (MDRD) Af Amer 103 mL/min (>60) 11/19/23 06:31 Est GFR (MDRD) Non-Af 85 mL/min (>60) 11/19/23 06:31 BUN/Creatinine Ratio 14.4 RATIO (10-20) 11/19/23 06:31 Glucose 174 mg/dL (74-106) H 11/19/23 06:31 Dosing Weight Weight used for dosin kg Estimated Creatinine Clearance Estimated Creatinine Clearance: >100 Goal Trough Goal Trough: 15-20 mcg/mL Pharmacy Plan for Drug Dosing Pharmacy Plan for Drug Dosinmg every 8 hours Pharmacy Service will continue to monitor and adjust dosing as required. Follow-Up Labs Follow-Up Labs: Trough: Vancomycin Date/Time Labs Ordered Labs to be done on [date and time ordered]: 11/20/23 @ 1100
--- NOTE | 2023-11-19 13:36 | NURSING ---
SUPERVISOR TRAVEL TRAILER here to do PICC line- antibiotics will be off schedule
--- NOTE | 2023-11-19 19:00 | RAD_ITS ---
STUDY: X-RAY CHEST REASON FOR EXAM: Male, 53 years old. CVC placement TECHNIQUE: Single AP portable view of the chest. COMPARISON: 11/12/2023 FINDINGS: Interval placement right internal jugular central line with tip of the catheter overlying the superior vena cava with no pneumothorax. Left subclavian pacemaker which is unchanged. Poor inspiration with some bibasilar atelectasis. No change in linear opacities left lung consistent with scarring. There is no demonstrated pleural abnormality. There is moderate cardiac enlargement. Normal mediastinum and albin. Normal visualized pulmonary arteries. Normal visualized aortic arch and descending thoracic aorta. Normal visualized thoracic spine. Normal visualized ribs, clavicles, and shoulders. There is no demonstrated abnormality of the visualized soft tissue structures of the upper abdomen. RAD/Chest 1 View (Portable) IMPRESSION: 1. Interval placement right internal jugular central line with tip of the catheter overlying the superior vena cava no pneumothorax. 2. Poor inspiration with some bibasilar atelectasis. 3. Cardiomegaly. Electronically Signed: Shaheen Del Cid MD at 19:26 EDT ,
[2023-11-19] MEDS: 0.9% Saline Lock 10 ML Syringe IV (20:13)
[2023-11-19] MEDS: Piperacil/Tazobactam 3.375 GM in 0.9% Normal Saline (50mL MB+) 50 ML IV (20:13)
[2023-11-19] MEDS: 0.9% Normal Saline (250mL Bag) 250 ML IV (20:15)
--- NOTE | 2023-11-19 20:57 | PN.HOSP_ITS ---
Hospitalist Note Procedure note: Right IJ CVC placement Patient had midline removed this morning due to discomfort, and unfortunately the fabricator foam rubber was unable to place a PICC line at the bedside. Discussed with radiology and due to patient's pacemaker, they had no access point for a PICC line either. Patient needed ongoing IV access for administration of IV vancomycin, zosyn and clindamycin for treatment of Chanel's gangrene. Decision was made to place CVC at the bedside. Consent was obtained from the patient for placement of central line. Region was prepped and drapped in standard fasion. US guidance was used to obtain access, guidewire threaded without issue, central line catheter was placed over guidewire and wire removed with cap placed. Lines were drawn and flushed without difficulty. Central line sutured in placed. STAT CXR confirmed adequate placement of CVC in the right IJ. Procedures Hospitalists Procedures: [id number] Insert Non-tunnel CV Cath
[2023-11-19] MEDS: Atorvastatin Calcium 40 MG Tablet PO (21:39)
[2023-11-20] VITALS (7 sets, daily range): BP systolic 117–167; BP diastolic 49–81; PULSE 72–78; RESP 18; TEMP 36.4–36.6; O2SAT 95–98; BMI 61.2
[2023-11-20] MEDS: Morphine 2 MG/ML Syringe IV ×2 (01:21→05:42)
[2023-11-20] MEDS: Vancomycin HCl 1,500 MG in 0.9% Normal Saline (500mL Bag) 500 ML 250 MG IV ×3 (03:02→21:42)
[2023-11-20] MEDS: 0.9% Saline Lock 10 ML Syringe IV ×3 (03:07→21:43)
[2023-11-20] MEDS: Levothyroxine 150 MCG Tablet PO (05:37)
[2023-11-20] MEDS: Levothyroxine 88 MCG Tablet PO (05:37)
[2023-11-20] MEDS: Piperacil/Tazobactam 3.375 GM in 0.9% Normal Saline (50mL MB+) 50 ML IV ×3 (05:38→21:43)
[2023-11-20] MEDS: Clindamycin 600 MG/50 ML BAG 100 MG IV ×4 (05:38→23:01)
--- NOTE | 2023-11-20 07:14 | CT_ITS ---
STUDY: CT ABDOMEN AND PELVIS WITHOUT CONTRAST REASON FOR EXAM: Male, 53 years old. Reassess grecia''s RADIATION DOSAGE (If Supplied By Facility): CTDIvol = ( 32.76 ) mGy, DLP = ( 2701.98 ) mGycm TECHNIQUE: Transaxial images were obtained from the dome of the diaphragm to the symphysis pubis without oral contrast, and without intravenous contrast. Sagittal and coronal images were reconstructed. Individualized dose optimization techniques were used for this CT. COMPARISON: Comparison is made with prior study dated November 18, 2023. FINDINGS: Since prior study, there has been progressive atelectasis and/or infiltrates at the lung bases. A dual-chamber pacemaker is seen. Coronary artery calcification. Normal liver. Normal gallbladder and extrahepatic biliary system. There are multiple benign calcified granulomata of the spleen. Normal pancreas. Normal bilateral adrenal glands. Normal right kidney. Stable 3.8 cm x 3.7 cm hypodensity in the lateral aspect of the left kidney suggestive of a small cyst. Normal visualized stomach. Normal small intestine. Normal colon. The appendix is visualized and appears normal. There is scattered atherosclerotic calcification of the abdominal aorta, without a demonstrated aneurysm. Normal inferior vena cava. Normal retroperitoneum. Normal urinary bladder. Persistent scrotal thickening. There has been further gaseous collection in the soft tissues in the lower aspect of the scrotum more prominent on the right side. The inflammatory process within the subcutaneous tissues has improved. No new abnormality is seen. Stable 3.4 cm x 1.5 cm linear soft tissue density in the medial gluteal region on the left side. Normal abdominal wall. There are diffuse degenerative changes of the visualized lumbar spine. CT/Abdomen/Pelvis without Cont IMPRESSION: Mild progression in the bibasilar atelectasis and/or infiltrates. Persistent scrotal soft tissue thickening with increased markings in the subcutaneous fat. Since prior study, there has been mild progression of the gaseous collections within the previously seen nodular densities in the inferior aspect of the scrotum as well as the perineum. This is slightly worse on the right side. Persistent soft tissue changes in the medial aspects of both gluteal regions. Electronically Signed: Hieu Garcia MD at 8:40 EDT ,
[2023-11-20 07:51] LABS: Hematocrit 31.1 % (40-54); Hemoglobin 8.8 g/dL (13.0-16.5); Mean Corp Hgb Conc 28.3 g/dL (32-36); Mean Corpuscular Hgb 25.1 pg (27.0-32.0); Mean Corpuscular Volume 88.9 fL (80-94); Mean Platelet Vol. 9.1 fl (6.2-12.0); Platelet Count 252 K/mm3 (150-450); RBC Distribution Width CV 16.5 % (11.6-14.6); RBC Distribution Width SD 51.9 fl (35.1-43.9); White Blood Count 12.4 K/mm3 (4.4-11.0)
[2023-11-20 08:06] LABS: Anion Gap 2 (5-15); BUN 9 mg/dL (7-18); BUN/Creat Ratio 9.8 RATIO (10-20); Calcium,Total 8.1 mg/dL (8.5-10.1); Chloride 101 mmol/L (98-107); Creatinine, Serum 0.92 mg/dL (0.70-1.30); EST Glomerular Filtration Rate 91 mL/min (>60); Est Glom Filt Rate - Afr Amer 111 mL/min (>60); Estimated Creatinine Clearance 170.99 ml/min; Glucose 289 mg/dL (74-106); Potassium 4.7 mmol/L (3.5-5.1); Sodium Level 136 mmol/L (136-145)
--- NOTE | 2023-11-20 08:14 | WOUNDNOTE ---
Pt off unit for CT scan at this time.
--- NOTE | 2023-11-20 08:20 | PCA ---
facesheet faxed to [facility] fax # [phone]
[2023-11-20] MEDS: Metoprolol Tartrate 25 MG Tablet 12.5 MG PO ×2 (08:53→21:41)
[2023-11-20] MEDS: Aspirin E.C. 81 MG Tablet PO (08:53)
[2023-11-20] MEDS: predniSONE 10 MG Tablet PO ×2 (08:53→16:53)
[2023-11-20] MEDS: Dabigatran Etexilate Mesylate 150 MG Capsule PO ×2 (08:54→21:41)
[2023-11-20] MEDS: Pantoprazole Sodium 20 MG Tablet PO ×2 (08:54→21:41)
--- NOTE | 2023-11-20 11:28 | PCM.PN.HOSP ---
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 Patient seen at bedside this morning, mother present. Patient laying fairly comfortably in bed, conversing normally, in no acute distress. Patient does report being upset that he has not been able to be transferred yet. He otherwise denies any new fevers or chills. Scrotal pain and discomfort have been similar today to previous days. No other acute concerns. Objective Data Objective Data Vital Signs: Vital Signs Temp Pulse Resp BP Pulse Ox O2 Del Method O2 Flow Rate 97.8 F 78 18 125/49 H 97 Nasal Cannula 4 11/20/23 08:45 11/20/23 08:53 11/20/23 08:45 11/20/23 08:45 11/20/23 08:45 11/20/23 08:51 11/20/23 08:51 Oxygen Flow Rate (L/min) 4 Oxygen Delivery Method Nasal Cannula Weight: 209.4 kg Body Mass Index (BMI) 61.2 Intake & Output: Intake and Output for Last 24 Hours 11/18/23 11/19/23 11/20/23 23:59 23:59 23:59 Intake Total 2926.00 / 2926.00 1744.59 / 1744.59 728.33 / 728.33 Output Total 550 / 800 1850 / 2550 1100 / 1100 Balance 2376.00 / 2126.00 -105.41 / -805.41 -371.67 / -371.67 Lab / Micro Data 11/20/23 07:05 11/20/23 07:05 Labs: Laboratory Results - last 24 hr 11/20/23 07:05: WBC 12.4 H, RBC 3.50 L, Hgb 8.8 L, Hct 31.1 L, MCV 88.9, MCH 25.1 L, MCHC 28.3 L, RDW Std Deviation 51.9 H, RDW Coeff of Kris 16.5 H, Plt Count 252, MPV 9.1, Sodium 136, Potassium 4.7, Chloride 101, Carbon Dioxide 33.0 H, Anion Gap 2 L, BUN 9, Creatinine 0.92, Estim Creat Clear Calc 170.99, Est GFR (MDRD) Af Amer 111, Est GFR (MDRD) Non-Af 91, BUN/Creatinine Ratio 9.8 L, Glucose 289 H, Calcium 8.1 L Radiography Diagnostic Testing: Radiology Impression Chest X-Ray 11/19/23 19:00 IMPRESSION: 1. Interval placement right internal jugular central line with tip of the catheter overlying the superior vena cava no pneumothorax. 2. Poor inspiration with some bibasilar atelectasis. 3. Cardiomegaly. Electronically Signed: Shaheen Del Cid MD at 19:26 EDT , Abdomen/Pelvis CT 11/20/23 07:14 IMPRESSION: Mild progression in the bibasilar atelectasis and/or infiltrates. Persistent scrotal soft tissue thickening with increased markings in the subcutaneous fat. Since prior study, there has been mild progression of the gaseous collections within the previously seen nodular densities in the inferior aspect of the scrotum as well as the perineum. This is slightly worse on the right side. Persistent soft tissue changes in the medial aspects of both gluteal regions. Electronically Signed: Hieu Garcia MD at 8:40 EDT , Physical Exam Const alert, oriented x3 and no apparent distress Constitutional Narrative: Morbidly obese. General Appearance: cooperative and comfortable HEENT normocephalic, head/scalp atraumatic, hearing grossly normal bilaterally and nasal mucous membranes and turbinates normal Mouth: dry mucous membranes Eyes PERRL, EOMs intact bilaterally and conjunctivae normal Neck full ROM Neck Narrative: Right IJ CVC in place. Chest inspection of chest normal Resp normal respiratory effort, normal air movement, no use of accessory muscles and clear to auscultation bilaterally Cardio regular rate, regular rhythm, no murmurs and peripheral pulses 2+ throughout GI normal to inspection, nondistended, normoactive bowel sounds, soft to palpation, non-tender and non-distended Narrative: Large area of skin breakdown noted at the base of the scrotum. Appears improved, however per wound care nurse there is palpable crepitus in the scrotum that has been present since admission. Back/Spine normal ROM Extremity normal to inspection, full ROM and no pedal edema Skin no rashes or lesions noted Neuro no focal motor deficits and no sensory deficits noted Speech: speech normal Psych mental status grossly normal Assessment & Plan Assessment/Plan (1) Adult failure to thrive: (2) Chanel's gangrene: (3) Testicular/scrotal pain: PLAN: Plan Patient is a 53-year-old male who presented to [facility] ED on 11/17/2023 for recurrent scrotal pain with edema and generalized weakness. 1. Chanel's gangrene ? CT abdomen pelvis without contrast on 11/17 showed new diffuse progressive scrotal thickening with air concerning for gas-forming organism compared to scan from 11/11. Infectious disease following, continue treatment with IV Unasyn, IV clindamycin and IV Zosyn. Patient has been hemodynamically stable and afebrile, no concern for sepsis or septic shock at this time. Improving with antibiotics. Dr. Gallagher with Urology unfortunately is not available this week, and patient continues to await bed placement at either [facility] or [facility] in [place]. Repeat CT abdomen pelvis on 11/19 shows mild progression of gaseous collections within the scrotum compared to scan from 11/17. No changes to treatment at this time, planning for transfer when able. 2. Hypotension, improved ? Noted to be hypotensive on morning of 11/17. Improved with 2 L of IV fluids, and remains improved on 11/18. Suspect hypotension was more likely secondary to hypovolemia from home diuretics and recent poor p.o. intake rather than sepsis secondary to suspected secondary to Chanel's gangrene as noted above. Notably, lactate only 1.4. Holding home diuretics and blood pressure medications. Continue to monitor closely, encouraged p.o. intake, can consider giving further small boluses of IV fluids as needed. 3. SARAH, resolved ? Creatinine up trended from 1.01 on 11/16 to 1.89 on 11/17. Suspect this was secondary to hypotension in setting of hypovolemia as noted above. Given IV fluid resuscitation as noted above. Repeat creatinine 0.89 on 11/18. Remains stable at baseline. 4. Debility ? PT/OT/case management following. Recommendation was going to be for SNF placement on discharge, however patient will be transferring to outside facility. 5. Difficult vascular access ? Had right midline in place from admission, was pulled due to patient discomfort. PICC line unable to be placed at bedside on right side and radiology noted with a would have the same issue, and left arm not available for PICC line due to pacemaker. Right IJ CVC placed on afternoon of 11/18, using without issue. Chronic medical conditions: - Morbid obesity: BMI 61 on admit. Complicates hospital course, care and prognosis. Encouraged lifestyle modifications. Patient also noted recently discussion GLP-1 medication w/ PCP, seems like he would be a good candidate, encouraged close outpatient follow up. - HTN, HLD, bilateral lymphedema, nonobstructive CAD, chronic HFpEF: Last echo in 03/2023 showed EF 65%, LA moderately enlarged, RA mildly enlarged. Continue home aspirin and statin. Holding home Lasix, losartan and Lopressor as noted above. - Chronic Afib: Stable. Continue home Pradaxa, holding home Lopressor. - GERD: Stable. Continue home PPI. - RA: Stable. Continue home prednisone 10 mg BID. - T2DM: Sliding-scale insulin while inpatient. - Hypothyroidism: Continue home Synthroid. Total clinical time spent by myself addressing the patient's medical issues, reviewing all the data, and collaborating with patient's care team: 35 minutes. Charges/Coding Visit Charges Inpatient E&M: 89284 Subs Hosp L2
[2023-11-20 11:51] LABS: Vancomycin, Trough Level 19.4 ug/mL (5.0-15.0)
--- NOTE | 2023-11-20 11:58 | PCM.RX.CS ---
Consult Antibiotic Management Pharmacy has been consulted to manage selected antibiotic: Vancomycin Type of Intervention Type of Consult: Follow-up Suspected Infection Suspected Infection: Skin/Soft tissue Prior Doses of Antibiotics Prior Doses of Antibiotics Received/Current Regimen: Vancomycin 1500 mg IV given 11/18 @ 1139, 11/18 @ 2012, 11/19 @ 0302 Labs Labs: Sodium 136 mmol/L (136-145) 11/20/23 07:05 Potassium 4.7 mmol/L (3.5-5.1) 11/20/23 07:05 Chloride 101 mmol/L (98-107) 11/20/23 07:05 Carbon Dioxide 33.0 mmol/L (21.0-32.0) H 11/20/23 07:05 Anion Gap 2 (5-15) L 11/20/23 07:05 BUN 9 mg/dL (7-18) 11/20/23 07:05 Creatinine 0.92 mg/dL (0.70-1.30) 11/20/23 07:05 Est GFR (MDRD) Af Amer 111 mL/min (>60) 11/20/23 07:05 Est GFR (MDRD) Non-Af 91 mL/min (>60) 11/20/23 07:05 BUN/Creatinine Ratio 9.8 RATIO (10-20) L 11/20/23 07:05 Glucose 289 mg/dL (74-106) H 11/20/23 07:05 Vancomycin Trough 19.4 ug/mL (5.0-15.0) H 11/20/23 10:55 Dosing Weight Weight used for dosin kg Estimated Creatinine Clearance Estimated Creatinine Clearance: ~171 Goal Trough Goal Trough: 15-20 mcg/mL Pharmacy Plan for Drug Dosing Pharmacy Plan for Drug Dosing: Vancomycin trough = 19.4, will continue current dosing, with weight there is concern for accumulation so retime trough tomorrow evening. Pharmacy Service will continue to monitor and adjust dosing as required. Follow-Up Labs Follow-Up Labs: Trough: Vancomycin Date/Time Labs Ordered Labs to be done on [date and time ordered]: 11/21/23 @ 8900
--- NOTE | 2023-11-20 15:28 | NURSING ---
aware pt refuses transfer to [facility] as well as [facility].
--- NOTE | 2023-11-20 15:57 | PCM.TXEXTCAR ---
Diet Diet Order/Speech Therapy: 11/17/23 19:13 Diet: Consistent Carb - Calorie Controlled Food consistency:: Regular Liquid Consistency:: Regular/Thin How many daily calories?: 2000 calorie Routine Orders/Code Status O2 Frequency: Continuous Keep PO Greater than or Equal to (%): 90 Code Status: Full Code Wound(s) SCROTOM: Wound Type: Abscess Therapies Weight Bearing: Weight bearing as tolerated Physical Therapy: Eval and Treat Occupational Therapy: Eval and Treat Problem/Diagnosis (1) Adult failure to thrive: Status: Acute Code(s): R62.7 - Adult failure to thrive (2) Chanel's gangrene: Status: Acute Code(s): N49.3 - Chanel gangrene (3) Testicular/scrotal pain: Status: Acute Plan Patient is a 53-year-old male who presented to [facility] ED on 11/17/2023 for recurrent scrotal pain with edema and generalized weakness. Hospital course as noted below. Transferred to [facility] on 11/19 for further management of Chanel's gangrene. 1. Chanel's gangrene ? CT abdomen pelvis without contrast on 11/17 showed new diffuse progressive scrotal thickening with air concerning for gas-forming organism compared to scan from 11/11. Infectious disease following, continue treatment with IV Unasyn, IV clindamycin and IV Zosyn. Patient has been hemodynamically stable and afebrile, no concern for sepsis or septic shock at this time. Improving with antibiotics. Dr. Gallagher with Urology unfortunately was not available this week, so plan was made for transfer. Repeat CT abdomen pelvis on 11/19 shows mild progression of gaseous collections within the scrotum compared to scan from 11/17. Transferred to [facility] on 11/19 for further management. 2. Hypotension, improved ? Noted to be hypotensive on morning of 11/17. Improved with 2 L of IV fluids, and remains improved on 11/18. Suspect hypotension was more likely secondary to hypovolemia from home diuretics and recent poor p.o. intake rather than sepsis secondary to suspected secondary to Chanel's gangrene as noted above. Notably, lactate only 1.4. Held home diuretics and blood pressure medications. Blood pressure remained stable through discharge. Will continue to hold home meds on discharge. 3. SARAH, resolved ? Creatinine up trended from 1.01 on 11/16 to 1.89 on 11/17. Suspect this was secondary to hypotension in setting of hypovolemia as noted above. Given IV fluid resuscitation as noted above. Repeat creatinine 0.89 on 11/18. Remains stable at baseline. 4. Debility ? PT/OT/case management followed. Recommendation was for SNF placement on discharge given his ongoing debility. Recommend further PT/OT/case management services at [facility]. 5. Difficult vascular access ? Had right midline in place from admission, was pulled due to patient discomfort. PICC line unable to be placed at bedside on right side and radiology noted with a would have the same issue, and left arm not available for PICC line due to pacemaker. Right IJ CVC placed on afternoon of 11/18, being used without issue. Chronic medical conditions: - Morbid obesity: BMI 61 on admit. Complicates hospital course, care and prognosis. Encouraged lifestyle modifications. Patient also noted recently discussion GLP-1 medication w/ PCP, seems like he would be a good candidate, encouraged close outpatient follow up. - HTN, HLD, bilateral lymphedema, nonobstructive CAD, chronic HFpEF: Last echo in 03/2023 showed EF 65%, LA moderately enlarged, RA mildly enlarged. Continue home aspirin and statin. Holding home Lasix, losartan and Lopressor as noted above. - Chronic Afib: Stable. Continue home Pradaxa, holding home Lopressor. - GERD: Stable. Continue home PPI. - RA: Stable. Continue home prednisone 10 mg BID. - T2DM: Sliding-scale insulin while inpatient. - Hypothyroidism: Continue home Synthroid. Total clinical time spent by myself addressing the patient's medical issues, reviewing all the data, and collaborating with patient's care team: 35 minutes. Allergies/Procedures Done in Hospital Allergies Penicillins Allergy (Verified 11/12/23 13:38) Hives red dye Allergy (Verified 11/12/23 13:38) Hives etanercept [From Enbrel] Adverse Reaction (Verified 11/12/23 13:38) Swelling rivaroxaban [From Xarelto] Adverse Reaction (Verified 11/12/23 13:38) Nausea warfarin sodium [From Coumadin] Adverse Reaction (Verified 11/12/23 13:38) Nausea Procedures: - (CT abdomen pelvis without contrast x 2, chest x-ray) Type of Care/Length of Stay Estimated LOS: Convalescent Care Less Than 30 days Type of Care Needed: Skilled Rehab Potential: Fair Prognosis: Fair Additional Orders/Day of Discharge H&P will serve as current which was dated: 11/17/23 Day of Discharge: 11/20/23 Dietary and Speech Recommendations Dietitian Recommendations/Changes: 1999 calorie controlled diet as tolerated Discharge Plan Admission Admit Date/Time: 11/17/23 14:54 Primary Reason for Your Visit: Recurrent scrotal edema with pain Attending Provider: Forrest Bruce Primary Care Provider: Ida Norris Consulting Providers: Avinash Woods; Mary Roberson; Hieu Garcia Discharge Orders/Prescriptions Prescriptions: New clindamycin in 5 % dextrose 600 mg/50 mL Piggyback 600 mg IV Q6 Qty: 0 0RF Piperacil/Tazobactam [Zosyn] 3.375 GM 0.9% Normal Saline (50mL MB+) 50 ML 12.5 mls/hr IV Q8 Ordered By: Avinash Woods MD Last Taken: 11/20/23 13:53 12.5 mls/hr Continued glipizide 2.5 mg tablet extended release 24hr 2.5 mg PO BID diazepam [Valium] 10 MG tablet 5 mg PO 4X/DAY PRN (Reason: Anxiety) omeprazole 20 MG capsule,delayed release(DR/EC) 20 mg PO BID gabapentin 100 MG capsule 100 mg PO QHS PRN (Reason: neuropathy) Patient Comments: 100-200mg albuterol sulfate [Ventolin HFA] 1 INHALER inhaler 1 - 2 puff INHALATION UD PRN (Reason: Sob &/Or Wheezing) Rx Instructions: INHALE 1 TO 2 PUFFS BY MOUTH AND INTO THE LUNGS EVERY 4 TO 6 HOURS NEEDED ascorbic acid (vitamin C) 500 MG capsule 500 mg PO DAILY prednisone 10 mg Tablet 10 mg PO BID miconazole nitrate 2 % cream 1 applic TOPICAL BID Patient Comments: apply to affected area twice a day aspirin 81 mg tablet,delayed release (DR/EC) 81 mg PO DAILY levothyroxine 150 mcg tablet 150 mcg PO DAILY Patient Comments: take 2 tablets by mouth once daily bumetanide 1 mg tablet 1 mg PO DAILY PRN (Reason: FLUID) ammonium lactate 12 % cream 1 applic TOPICAL BID nystatin [Nyamyc] 100,000 unit/gram powder 1 applic TOPICAL BID Patient Comments: apply to affected area once daily to twice a day fluticasone propionate 50 mcg/actuation spray,suspension 2 spray INTRANASAL DAILY PRN (Reason: Nasal Congestion) Patient Comments: instill 2 sprays into each nostril once daily atorvastatin 40 mg tablet 40 mg PO QHS metoprolol tartrate 25 mg tablet 12.5 mg PO BID dabigatran etexilate [Pradaxa] 150 mg capsule 150 mg PO BID Rx Instructions: take 1 pill (150mg) in the morning then take 1 pill in the evening (150mg) for a total of 300mg. levothyroxine 88 mcg tablet 88 mcg PO DAILY Rx Instructions: take with 150mg tab oxycodone 5 mg tablet 5 mg PO Q6H PRN (Reason: pain) 3 Days Qty: 12 0RF Held losartan 25 mg tablet 12.5 mg PO BID Hold Instructions: Resume on 12/02/23. furosemide 20 mg tablet 80 mg PO DAILY Hold Instructions: Resume on 12/02/23. Patient Comments: 80mg in am and 40mg at 1700 furosemide [Lasix] 40 mg tablet 40 mg PO 1700 Hold Instructions: Resume on 12/02/23. Discontinued doxycycline hyclate 100 mg capsule 100 mg PO BID Qty: 10 0RF amoxicillin-pot clavulanate 875-125 mg tablet 1 tab PO BID Qty: 10 0RF Referrals / Follow Up: Ida Norris DO [Primary Care Provider] - Disposition Disposition (needs filled in before D/C Order can be placed): Acute [facility]
--- NOTE | 2023-11-20 16:03 | DS.PCM_ITS ---
Providers Date of Admission: 11/17/23 Date of Discharge: 11/20/23 Primary Care Physician: Dr. Ida Norris, Consultations 11/17/23 19:13 Consult: Infectious Disease Routine Consulting Provider: Avinash Woods Reason for Consult: cellulitis and phlegmon scrotum, readmit for adult FTT EMERGENT Consult: No MD Notified: Yes Date Notified: 11/18/23 Time Notified: 05:29 Method of Notification: Answering Service 11/18/23 03:45 Oncology [Consult: Onc/Wound/r developer] Routine Comment: Reason for Consult:: scrotum wound 11/18/23 13:04 Consult: Infectious Disease Routine Consulting Provider: Avinash Woods Reason for Consult: concern for grecia's gangrene EMERGENT Consult: No MD Notified: Yes Date Notified: 11/18/23 Time Notified: 13:04 Method of Notification: Text 11/19/23 15:35 Consult: Interventional Radiology Routine Consulting Provider: Hieu Garcia Reason for Consult: PICC line placement, rehabilitation engineer unable to place EMERGENT Consult: No MD Notified: Yes Date Notified: 11/19/23 Time Notified: 15:36 Method of Notification: Text 11/19/23 15:59 Consult: Hospitalist Routine Consulting Provider: Haroldo Boohte Reason for Consult: triple lumen central line EMERGENT Consult: No MD Notified: Yes Date Notified: 11/19/23 Time Notified: 15:59 Method of Notification: Text Reason For Visit: RECENT SCROTAL CELLULITIES, ADULT FTT Diagnosis Discharge Diagnosis (1) Adult failure to thrive: Status: Acute Code(s): R62.7 - Adult failure to thrive (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 (3) Testicular/scrotal pain: Status: Acute Medications at Discharge Home Medications diazepam 10 mg tablet (Valium) 5 mg PO 4X/DAY PRN Anxiety 03/03/16 albuterol sulfate 90 mcg/actuation aerosol inhaler (Ventolin HFA) 1 - 2 puff inhalation UD PRN Sob &/Or Wheezing 07/07/20 ascorbic acid (vitamin C) 500 mg capsule 500 mg PO DAILY SUPPLEMENT 07/07/20 gabapentin 100 mg capsule 100 mg PO QHS PRN neuropathy 07/07/20 omeprazole 20 mg capsule,delayed release 20 mg PO BID ACID REFLUX 07/07/20 glipizide 2.5 mg tablet, extended release 24 hr 2.5 mg PO BID DIABETES 09/06/21 ammonium lactate 12 % topical cream 1 applic topical BID LEGS 08/16/22 aspirin 81 mg tablet,delayed release 81 mg PO DAILY HEART HEALTH 08/16/22 atorvastatin 40 mg tablet 40 mg PO QHS CHOLESTEROL 08/16/22 bumetanide 1 mg tablet 1 mg PO DAILY PRN FLUID 08/16/22 dabigatran etexilate 150 mg capsule (Pradaxa) 150 mg PO BID BLOOD THINNER 08/16/22 fluticasone propionate 50 mcg/actuation nasal spray,suspension 2 spray intranasal DAILY PRN Nasal Congestion 08/16/22 levothyroxine 150 mcg tablet 150 mcg PO DAILY THYROID 08/16/22 losartan 25 mg tablet 12.5 mg PO BID BLOOD PRESSURE 08/16/22 metoprolol tartrate 25 mg tablet 12.5 mg PO BID BLOOD PRESSURE 08/16/22 miconazole nitrate 2 % topical cream 1 applic topical BID FUNGAL INFECTION 08/16/22 nystatin 100,000 unit/gram topical powder (Nyamyc) 1 applic topical BID SKIN FOLDS 08/16/22 prednisone 10 mg tablet 10 mg PO BID STEROID 08/16/22 furosemide 20 mg tablet 80 mg PO DAILY directic 06/27/23 furosemide 40 mg tablet (Lasix) 40 mg PO 1700 fluid 06/27/23 levothyroxine 88 mcg tablet 88 mcg PO DAILY hypothyroidism 06/27/23 oxycodone 5 mg tablet 5 mg PO Q6H PRN pain 3 days #12 tabs 11/16/23 clindamycin 600 mg/50 mL in 5 % dextrose intravenous piggyback 600 mg IV Q6 #0 mL 11/18/23 Piperacil/Tazobactam [Zosyn] 3.375 gm 12.5 mls/hr IV Q8 11/19/23 Hospital Course Operations None Procedures - (Chest x-ray, CT abdomen pelvis without contrast x 2) Summary of Care Provided Minutes Spent on Discharge: 35 Hospital Course: Patient is a 53-year-old male who presented to [facility] ED on 11/17/2023 for recurrent scrotal pain with edema and generalized weakness. Hospital course as noted below. Transferred to [facility] on 11/19 for further management of Grecia's gangrene. 1. Grecia's gangrene ? CT abdomen pelvis without contrast on 11/17 showed new diffuse progressive scrotal thickening with air concerning for gas-forming organism compared to scan from 11/11. Infectious disease following, continue treatment with IV Unasyn, IV clindamycin and IV Zosyn. Patient has been hemodynamically stable and afebrile, no concern for sepsis or septic shock at this time. Improving with antibiotics. Dr. Gallagher with Urology unfortunately was not available this week, so plan was made for transfer. Repeat CT abdomen pelvis on 11/19 shows mild progression of gaseous collections within the scrotum compared to scan from 11/17. Transferred to [facility] on 11/19 for further management. 2. Hypotension, improved ? Noted to be hypotensive on morning of 11/17. Improved with 2 L of IV fluids, and remains improved on 11/18. Suspect hypotension was more likely secondary to hypovolemia from home diuretics and recent poor p.o. intake rather than sepsis secondary to suspected secondary to Grecia's gangrene as noted above. Notably, lactate only 1.4. Held home diuretics and blood pressure medications. Blood pressure remained stable through discharge. Will continue to hold home meds on discharge. 3. SARAH, resolved ? Creatinine up trended from 1.01 on 11/16 to 1.89 on 11/17. Suspect this was secondary to hypotension in setting of hypovolemia as noted above. Given IV fluid resuscitation as noted above. Repeat creatinine 0.89 on 11/18. Remains stable at baseline. 4. Debility ? PT/OT/case management followed. Recommendation was for SNF placement on discharge given his ongoing debility. Recommend further PT/OT/case management services at [facility]. 5. Difficult vascular access ? Had right midline in place from admission, was pulled due to patient discomfort. PICC line unable to be placed at bedside on right side and radiology noted with a would have the same issue, and left arm not available for PICC line due to pacemaker. Right IJ CVC placed on afternoon of 11/18, being used without issue. Chronic medical conditions: - Morbid obesity: BMI 61 on admit. Complicates hospital course, care and pr ognosis. Encouraged lifestyle modifications. Patient also noted recently discussion GLP-1 medication w/ PCP, seems like he would be a good candidate, encouraged close outpatient follow up. - HTN, HLD, bilateral lymphedema, nonobstructive CAD, chronic HFpEF: Last echo in 03/2023 showed EF 65%, LA moderately enlarged, RA mildly enlarged. Continue home aspirin and statin. Holding home Lasix, losartan and Lopressor as noted above. - Chronic Afib: Stable. Continue home Pradaxa, holding home Lopressor. - GERD: Stable. Continue home PPI. - RA: Stable. Continue home prednisone 10 mg BID. - T2DM: Sliding-scale insulin while inpatient. - Hypothyroidism: Continue home Synthroid. Total clinical time spent by myself addressing the patient's medical issues, reviewing all the data, and collaborating with patient's care team: 35 minutes. Physical Exam Const alert, oriented x3 and no apparent distress Constitutional Narrative: Morbidly obese. General Appearance: cooperative and comfortable HEENT normocephalic, head/scalp atraumatic, hearing grossly normal bilaterally and nasal mucous membranes and turbinates normal Mouth: dry mucous membranes Eyes PERRL, EOMs intact bilaterally and conjunctivae normal Neck full ROM Neck Narrative: Right IJ CVC in place. Chest inspection of chest normal Resp normal respiratory effort, normal air movement, no use of accessory muscles and clear to auscultation bilaterally Cardio regular rate, regular rhythm, no murmurs and peripheral pulses 2+ throughout GI normal to inspection, nondistended, normoactive bowel sounds, soft to palpation, non-tender and non-distended Narrative: Large area of skin breakdown noted at the base of the scrotum. Appears improved, however per wound care nurse there is palpable crepitus in the scrotum that has been present since admission. Back/Spine normal ROM Extremity normal to inspection, full ROM and no pedal edema Skin no rashes or lesions noted Neuro no focal motor deficits and no sensory deficits noted Speech: speech normal Psych mental status grossly normal Weight / BMI Weight Weight: 209.4 kg Body Mass Index (BMI) 61.2 ABG / Lab / Microbiology Data 11/20/23 07:05 11/20/23 07:05 Laboratory: Laboratory Results - last 24 hr 11/20/23 07:05: WBC 12.4 H, RBC 3.50 L, Hgb 8.8 L, Hct 31.1 L, MCV 88.9, MCH 25.1 L, MCHC 28.3 L, RDW Std Deviation 51.9 H, RDW Coeff of Kris 16.5 H, Plt Count 252, MPV 9.1, Sodium 136, Potassium 4.7, Chloride 101, Carbon Dioxide 33.0 H, Anion Gap 2 L, BUN 9, Creatinine 0.92, Estim Creat Clear Calc 170.99, Est GFR (MDRD) Af Amer 111, Est GFR (MDRD) Non-Af 91, BUN/Creatinine Ratio 9.8 L, Glucose 289 H, Calcium 8.1 L 11/20/23 10:55: Vancomycin Trough 19.4 H Radiography Diagnostic Testing: Radiology Impression Chest X-Ray 11/19/23 19:00 IMPRESSION: 1. Interval placement right internal jugular central line with tip of the catheter overlying the superior vena cava no pneumothorax. 2. Poor inspiration with some bibasilar atelectasis. 3. Cardiomegaly. Electronically Signed: Shaheen Del Cid MD at 19:26 EDT , Abdomen/Pelvis CT 11/20/23 07:14 IMPRESSION: Mild progression in the bibasilar atelectasis and/or infiltrates. Persistent scrotal soft tissue thickening with increased markings in the subcutaneous fat. Since prior study, there has been mild progression of the gaseous collections within the previously seen nodular densities in the inferior aspect of the scrotum as well as the perineum. This is slightly worse on the right side. Persistent soft tissue changes in the medial aspects of both gluteal regions. Electronically Signed: Hieu Garcia MD at 8:40 EDT , D/C Instructions Discharge Diet: 2000 Calorie Control Diet Meaningful Use Info Meaningful Use Meaningful Use Diagnoses (Choose all that apply): None applicable Ischemic Stroke Statin Dosing Therapy Reference: STATIN DOSE THERAPY REFERENCE: * Patients > 75 years receive moderate or high dose statin therapy. * Patients 75 years or YOUNGER should receive HIGH intensity statin dose unless contraindicated. You will be required to document reason for non-treatment if statin daily dose does not meet guidelines. HIGH DOSE STATIN THERAPY DAILY Atorvastatin > than or = to 40 mg Rosuvastatin > than or = to 20 mg Amlodipine + Atorvastatin > than or = to 2.5/40 mg Ezetimibe + Simvastatin 10/80 mg Simvastatin 80mg Discharge Plan Admission Admit Date/Time: 11/17/23 14:54 Primary Reason for Your Visit: Recurrent scrotal edema with pain Attending Provider: Forrest Bruce Primary Care Provider: Ida Norris Consulting Providers: Avinash Woods; Mary Roberson; Hieu Garcia Discharge Orders/Prescriptions Prescriptions: New clindamycin in 5 % dextrose 600 mg/50 mL Piggyback 600 mg IV Q6 Qty: 0 0RF Piperacil/Tazobactam [Zosyn] 3.375 GM 0.9% Normal Saline (50mL MB+) 50 ML 12.5 mls/hr IV Q8 Ordered By: Avinash Woods MD Last Taken: 11/20/23 13:53 12.5 mls/hr Continued glipizide 2.5 mg tablet extended release 24hr 2.5 mg PO BID diazepam [Valium] 10 MG tablet 5 mg PO 4X/DAY PRN (Reason: Anxiety) omeprazole 20 MG capsule,delayed release(DR/EC) 20 mg PO BID gabapentin 100 MG capsule 100 mg PO QHS PRN (Reason: neuropathy) Patient Comments: 100-200mg albuterol sulfate [Ventolin HFA] 1 INHALER inhaler 1 - 2 puff INHALATION UD PRN (Reason: Sob &/Or Wheezing) Rx Instructions: INHALE 1 TO 2 PUFFS BY MOUTH AND INTO THE LUNGS EVERY 4 TO 6 HOURS NEEDED ascorbic acid (vitamin C) 500 MG capsule 500 mg PO DAILY prednisone 10 mg Tablet 10 mg PO BID miconazole nitrate 2 % cream 1 applic TOPICAL BID Patient Comments: apply to affected area twice a day aspirin 81 mg tablet,delayed release (DR/EC) 81 mg PO DAILY levothyroxine 150 mcg tablet 150 mcg PO DAILY Patient Comments: take 2 tablets by mouth once daily bumetanide 1 mg tablet 1 mg PO DAILY PRN (Reason: FLUID) ammonium lactate 12 % cream 1 applic TOPICAL BID nystatin [Nyamyc] 100,000 unit/gram powder 1 applic TOPICAL BID Patient Comments: apply to affected area once daily to twice a day fluticasone propionate 50 mcg/actuation spray,suspension 2 spray INTRANASAL DAILY PRN (Reason: Nasal Congestion) Patient Comments: instill 2 sprays into each nostril once daily atorvastatin 40 mg tablet 40 mg PO QHS metoprolol tartrate 25 mg tablet 12.5 mg PO BID dabigatran etexilate [Pradaxa] 150 mg capsule 150 mg PO BID Rx Instructions: take 1 pill (150mg) in the morning then take 1 pill in the evening (150mg) for a total of 300mg. levothyroxine 88 mcg tablet 88 mcg PO DAILY Rx Instructions: take with 150mg tab oxycodone 5 mg tablet 5 mg PO Q6H PRN (Reason: pain) 3 Days Qty: 12 0RF Held losartan 25 mg tablet 12.5 mg PO BID Hold Instructions: Resume on 12/02/23. furosemide 20 mg tablet 80 mg PO DAILY Hold Instructions: Resume on 12/02/23. Patient Comments: 80mg in am and 40mg at 1700 furosemide [Lasix] 40 mg tablet 40 mg PO 1700 Hold Instructions: Resume on 12/02/23. Discontinued doxycycline hyclate 100 mg capsule 100 mg PO BID Qty: 10 0RF amoxicillin-pot clavulanate 875-125 mg tablet 1 tab PO BID Qty: 10 0RF Referrals / Follow Up: Ida Norris DO [Primary Care Provider] - Disposition Disposition (needs filled in before D/C Order can be placed): Acute Care Hospital Charges/Coding Visit Charges Inpatient E&M: 25967 Disch Hosp >30min
--- NOTE | 2023-11-20 16:49 | NURSING ---
Called report to Trisha at [phone]. Pt to be picked up at 19:00 tonight.
[2023-11-20] MEDS: Atorvastatin Calcium 40 MG Tablet PO (21:42)
[2023-11-21 00:28] VITALS: BP 138/41; PULSE 80; RESP 18; TEMP 36.6; O2SAT 96
--- NOTE | 2023-11-21 00:54 | NURSING ---
pt tx to [facility] via ambulance at this time. pt stable, belongings sent with pt.
== END 2023-11-21 00:45 | disposition short-term general hospital (02) | DRG 421 ==
LOC: ED 14:14 → MS3 11-18 06:04
PROVIDERS: Internal Medicine Infectious Disease; Admitting Provider Family Medicine; Emergency Provider Emergency Medicine; PCP Family Medicine; Visit Provider Hospitalist
DX: R62.7 Adult failure to thrive (principal); I48.20 Chronic atrial fibrillation, unspecified; N17.9 Acute kidney failure, unspecified; E11.40 Type 2 diabetes mellitus with diabetic neuropathy, unspecified; J96.11 Chronic respiratory failure with hypoxia; Z68.44 Body mass index [BMI] 60.0-69.9, adult; I11.0 Hypertensive heart disease with heart failure; J44.9 Chronic obstructive pulmonary disease, unspecified; I50.32 Chronic diastolic (congestive) heart failure; E66.01 Morbid (severe) obesity due to excess calories; M06.9 Rheumatoid arthritis, unspecified; N49.3 Fournier gangrene; E03.9 Hypothyroidism, unspecified; K21.9 Gastro-esophageal reflux disease without esophagitis; E78.5 Hyperlipidemia, unspecified; I25.10 Atherosclerotic heart disease of native coronary artery without angina pectoris; I25.2 Old myocardial infarction; G47.33 Obstructive sleep apnea (adult) (pediatric); N49.2 Inflammatory disorders of scrotum; R53.81 Other malaise; Z79.82 Long term (current) use of aspirin; Z79.899 Other long term (current) drug therapy; Z79.51 Long term (current) use of inhaled steroids; Z79.84 Long term (current) use of oral hypoglycemic drugs; Z87.891 Personal history of nicotine dependence; Z95.5 Presence of coronary angioplasty implant and graft; Z86.718 Personal history of other venous thrombosis and embolism; Z99.81 Dependence on supplemental oxygen
CPT/HCPCS: 36415; 36569; 71045; 74176; 80048; 80053; 80202; 82962; 83605; 83735; 85025; 85027; 87040; 97162; 97166; 97530; 97535; 99285; 99406; J7040; J7050; J7120; A4216; C1751; J0295; J2405

== ENCOUNTER 2023-12-02 03:48 | Emergency (ER) | payer MEDICAID, SELFPAY ==
[2023-12-02 03:49] VITALS: PULSE 110; RESP 28; TEMP 36.6; O2SAT 92; BMI 62.4
[2023-12-02 03:51] VITALS: BP 152/86; PULSE 110; RESP 28; TEMP 36.6; O2SAT 92
--- NOTE | 2023-12-02 04:28 | EX.ED.DYSGE1 ---
HPI History of Present Illness Chief Complaint: Abscess Detail of Chief Complaint: Swelling right proximal, medial thigh. Informant: patient Onset/Context/Timing Onset: Days Context: Gradual Onset Timing: Continuous Current Severity: Mild Maximum Severity: Mild Narrative Narrative: 53-year-old male significant past medical history of A-fib on Pradaxa, prior DVT, COPD on 4 L of oxygen, diabetes, pacemaker, anemia, scrotal cellulitis. Patient had recent admission here and was transferred to [facility]. He was discharged from the [facility] just over a week ago and went to an extended care facility where he was there for several days. He is currently still on Keflex and Bactrim for his cellulitis. He thought he was developing an abscess in his right thigh tonight. And came in to have it evaluated. Patient states while at the [facility] his home medications some of them were discontinued and he put on a significant amount of water weight because he was taken off his Lasix. That is all being corrected now by his primary care physician. Prior similar symptoms: Yes Recent Illness/Hospitalization: Yes PFSH PFS Medical History Anemia Anxiety Atherosclerotic heart disease of [place] coronary artery without angina pectoris Atrial fibrillation Chest pain Chronic anticoagulation Chronic hypoxemic respiratory failure Chronic pain Chronic prescription benzodiazepine use Chronic steroid use Colon polyps COPD (chronic obstructive pulmonary disease) Depression Diabetes DVT (deep venous thrombosis) Essential hypertension Family history of premature CAD Former smoker GERD (gastroesophageal reflux disease) Goiter History of anemia History of atrial fibrillation History of diabetes mellitus History of Chanel's gangrene HLD (hyperlipidemia) Hypothyroidism Hypothyroidism IBS (irritable bowel syndrome) Intertrigo Kidney stones Left against medical advice Leg pain Myocardial infarct Non-healing surgical wound NSTEMI, initial episode of care On home oxygen therapy BERT (obstructive sleep apnea) Pacemaker Pain in scapula PTSD (post-traumatic stress disorder) Rheumatoid arthritis Sleep apnea Smoker Super obesity Superficial thrombophlebitis of leg Type 2 diabetes mellitus Ulcer of scrotum Home Medications diazepam 10 mg tablet (Valium) 5 mg PO 4X/DAY PRN Anxiety 03/03/16 [History Last Taken 08/15/22] albuterol sulfate 90 mcg/actuation aerosol inhaler (Ventolin HFA) 1 - 2 puff inhalation UD PRN Sob &/Or Wheezing 07/07/20 [History Last Taken 08/11/22] ascorbic acid (vitamin C) 500 mg capsule 500 mg PO DAILY SUPPLEMENT 07/07/20 [History Last Taken 03/26/23] gabapentin 100 mg capsule 100 mg PO QHS PRN neuropathy 07/07/20 [History Last Taken 03/25/23] omeprazole 20 mg capsule,delayed release 20 mg PO BID ACID REFLUX 07/07/20 [History Last Taken 03/26/23] glipizide 2.5 mg tablet, extended release 24 hr 2.5 mg PO BID DIABETES 09/06/21 [History Last Taken 03/26/23] ammonium lactate 12 % topical cream 1 applic topical BID LEGS 08/16/22 [History Last Taken 03/26/23] aspirin 81 mg tablet,delayed release 81 mg PO DAILY HEART HEALTH 08/16/22 [History Last Taken 03/26/23] atorvastatin 40 mg tablet 40 mg PO QHS CHOLESTEROL 08/16/22 [History Last Taken 03/25/23] bumetanide 1 mg tablet 1 mg PO DAILY PRN FLUID 08/16/22 [History Last Taken Unknown] dabigatran etexilate 150 mg capsule (Pradaxa) 150 mg PO BID BLOOD THINNER 08/16/22 [History Last Taken 03/26/23] fluticasone propionate 50 mcg/actuation nasal spray,suspension 2 spray intranasal DAILY PRN Nasal Congestion 08/16/22 [History Last Taken Unknown] levothyroxine 150 mcg tablet 150 mcg PO DAILY THYROID 08/16/22 [History Last Taken 03/26/23] losartan 25 mg tablet 12.5 mg PO BID BLOOD PRESSURE 08/16/22 [History Last Taken 03/26/23] metoprolol tartrate 25 mg tablet 12.5 mg PO BID BLOOD PRESSURE 08/16/22 [History Last Taken 03/26/23] miconazole nitrate 2 % topical cream 1 applic topical BID FUNGAL INFECTION 08/16/22 [History Last Taken 03/26/23] nystatin 100,000 unit/gram topical powder (Nyamyc) 1 applic topical BID SKIN FOLDS 08/16/22 [History Last Taken 03/26/23] prednisone 10 mg tablet 10 mg PO BID STEROID 08/16/22 [History Last Taken 03/26/23] furosemide 20 mg tablet 80 mg PO DAILY directic 06/27/23 [History Last Taken Unknown] furosemide 40 mg tablet (Lasix) 40 mg PO 1700 fluid 06/27/23 [History Last Taken Unknown] levothyroxine 88 mcg tablet 88 mcg PO DAILY hypothyroidism 06/27/23 [History Last Taken Unknown] oxycodone 5 mg tablet 5 mg PO Q6H PRN pain 3 days #12 tabs 11/16/23 [Rx Last Taken Unknown] clindamycin 600 mg/50 mL in 5 % dextrose intravenous piggyback 600 mg IV Q6 #0 mL 11/18/23 [Rx Last Taken Unknown] Piperacil/Tazobactam [Zosyn] 3.375 gm 12.5 mls/hr IV Q8 11/19/23 [Rx Last Taken Unknown] Allergy/AdvReac Type Severity Reaction Status Date / Time Penicillins Allergy Hives Verified 12/02/23 03:49 red dye Allergy Hives Verified 12/02/23 03:49 etanercept [From Enbrel] AdvReac Swelling Verified 12/02/23 03:49 rivaroxaban [From Xarelto] AdvReac Nausea Verified 12/02/23 03:49 warfarin sodium AdvReac Nausea Verified 12/02/23 03:49 [From Coumadin] Family History Mother Cancer Heart disease Kidney disease Hypertension Father Cancer Heart disease Kidney disease Hypertension Surgical History History of coronary artery stent placement (03/25/21) Social History household members: family Smoking Status: Former smoker alcohol intake: never substance use type: does not use ROS ROS ED ROS Narrative Loose stools from the antibiotics. Review of Systems ROS Unobtainable: Denies due to encephalopathy Constitutional Constitutional ED: Denies chills or fever(s) Eyes Eyes: Denies blurry vision ENT ENT ED: Denies ear pain Cardiovascular Cardiovascular: Denies chest pain Respiratory/Chest Respiratory/Chest: Reports dyspnea and other Details: Chronic dyspnea. Chronically on 4 L oxygen. History of COPD. ; Denies cough Gastrointestinal Gastrointestinal: Reports diarrhea; Denies abdominal pain, constipation, melena, nausea or vomiting Genitourinary Genitourinary ED: Denies dysuria or hematuria Musculoskeletal Musculoskeletal: Denies arthralgias Integumentary Denies abscess Neurologic Neurologic: Denies headache(s) Psychiatric Psychiatric: Denies anxiety Endocrine Endocrinology: Denies cold intolerance Hematologic/Lymphatic Hematologic/Lymphatic: Reports anemia, easy bleeding, easy bruising and other Details: On the blood thinner Pradaxa. Allergic/Immunologic Allergic/Immunologic ED: Denies mouth swelling, tongue swelling or urticaria EXAM Physical Exam Narrative Exam Narrative: 33-year-old male no acute distress vital signs stable afebrile. Pulse ox 90% on his chronic 4 L. Sitting upright in bed. HEENT exam unremarkable. Neck nontender. Lungs clear to auscultation bilaterally. Heart regular rhythm rate about 100 no murmur. Abdomen soft, nontender, nondistended normal bowel sounds without peritoneal signs. He is morbidly obese. Patient weighs around 470 pounds. Moving all 4 extremities. He has chronic bilateral lymphedema both lower extremities. The right proximal medial thigh is not infected. There is no abscess. He just has thickened tissue from being indurated from his lymphedema. There is nothing to drain. There is no pus. There is no fluctuance. There is no foreign years gangrene. 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 Dorsi plantarflexion intact. He has 2+ pitting edema of both lower extremities from his toes up to his proximal thighs. Patient is awake and alert. Answering questions and following commands. Const Vital Signs: 12/02/23 03:49 12/02/23 03:51 Temperature 97.8 F 97.8 F Temperature Source Temporal Temporal Pulse Rate 110 H 110 H Respiratory Rate 28 H 28 H Blood Pressure 152/86 H Blood Pressure Mean 108 Pulse Ox 92 92 Oxygen Delivery Method Nasal Cannula Nasal Cannula Oxygen Flow Rate (L/min) 4 4 Positive well nourished, well developed and obese; Negative for cachectic, contractures or unkempt General Appearance ED: well developed and NAD; Negative for unkempt, cachectic, contractures, cyanotic, diaphoretic or pallor Nutritional Appearance: obese; Negative for cachectic HEENT Reports moist mucous membranes Negative for trauma or tenderness Eyes PERRL and EOMs intact bilaterally General Eye ED: Negative for pale conjunctiva or scleral icterus Neck no lymphadenopathy, supple and no JVD Lymph Lymphatic: Negative for other Chest Wall inspection of chest normal and palpation of chest normal Chest: Negative for other Resp normal respiratory effort and clear to auscultation bilaterally Effort and Inspection: Negative for retractions Auscultation: Negative for rales or rhonchi Cardio regular rate, regular rhythm, S1 normal heart sound, S2 normal heart sound and no murmurs GI normal to inspection, nondistended, normoactive bowel sounds, non-tender, non-distended and no masses Inspection: Negative for abdominal distention Auscultation: normoactive bowel sounds Palpation: soft; Negative for tender, guarding or rebound tenderness present Back/Spine no CVA tenderness Extremity Negative for normal to inspection Extremity Narrative: Chronic bilateral lymphedema. Indurated tissue right proximal medial thigh. No abscess. No foreign years gangrene. General Extremety ED: Yes edema; Negative for tenderness General Extremity: edema Neuro oriented x3 and CN's II-XII intact bilaterally Sensorium / Orientation: alert Motor Exam: strength 5/5 throughout Psych mental status grossly normal Appearance: Negative for unkempt Attitude: No agitated Mood & Affect: Negative for depressed, anxious or tearful Skin no rashes or lesions noted and no wounds General Skin Exam: Negative for jaundice or pallor Lesions: No lesion noted Rashes: No rashes noted Trauma: Negative for abrasion Wounds: Negative for wounds noted Image ED - Body Diagram Man: 1. Swollen, indurated tissue right proximal medial thigh. Consistent with his chronic lymphedema. MDM MDM MDM Narrative Medical decision making narrative: 53-year-old male significant past medical history with bilateral lower extremity lymphedema. There is no abscess. He is currently on antibiotics for resolving cellulitis. There is nothing to I&D. He can continue his current antibiotics. Continue his current diuretics to decrease his lower extremity edema. He has outpatient appointments already set up to follow-up with his primary care physician on and next week. History & Record Review Discussion w/independent historian: Patient Additional record(s) reviewed:: Prior inpatient record, Prior outpatient record, Prior ED visit and Prior labs Discharge Plan Triage Chief Complaint: Abscess ED Provider: Rajendra Fam Dx/Rx/DC Orders Clinical Impression: History of COPD, Chronic anticoagulation, Lymphedema, History of atrial fibrillation, History of diabetes mellitus Instructions: ED Lymphedema Prescriptions: No Action glipizide 2.5 mg tablet extended release 24hr 2.5 mg PO BID diazepam [Valium] 10 MG tablet 5 mg PO 4X/DAY PRN (Reason: Anxiety) omeprazole 20 MG capsule,delayed release(DR/EC) 20 mg PO BID gabapentin 100 MG capsule 100 mg PO QHS PRN (Reason: neuropathy) Patient Comments: 100-200mg albuterol sulfate [Ventolin HFA] 1 INHALER inhaler 1 - 2 puff INHALATION UD PRN (Reason: Sob &/Or Wheezing) Rx Instructions: INHALE 1 TO 2 PUFFS BY MOUTH AND INTO THE LUNGS EVERY 4 TO 6 HOURS NEEDED ascorbic acid (vitamin C) 500 MG capsule 500 mg PO DAILY prednisone 10 mg Tablet 10 mg PO BID miconazole nitrate 2 % cream 1 applic TOPICAL BID Patient Comments: apply to affected area twice a day aspirin 81 mg tablet,delayed release (DR/EC) 81 mg PO DAILY levothyroxine 150 mcg tablet 150 mcg PO DAILY Patient Comments: take 2 tablets by mouth once daily bumetanide 1 mg tablet 1 mg PO DAILY PRN (Reason: FLUID) ammonium lactate 12 % cream 1 applic TOPICAL BID nystatin [Nyamyc] 100,000 unit/gram powder 1 applic TOPICAL BID Patient Comments: apply to affected area once daily to twice a day fluticasone propionate 50 mcg/actuation spray,suspension 2 spray INTRANASAL DAILY PRN (Reason: Nasal Congestion) Patient Comments: instill 2 sprays into each nostril once daily atorvastatin 40 mg tablet 40 mg PO QHS losartan 25 mg tablet 12.5 mg PO BID Hold Instructions: Resume on 12/02/23. metoprolol tartrate 25 mg tablet 12.5 mg PO BID dabigatran etexilate [Pradaxa] 150 mg capsule 150 mg PO BID Rx Instructions: take 1 pill (150mg) in the morning then take 1 pill in the evening (150mg) for a total of 300mg. levothyroxine 88 mcg tablet 88 mcg PO DAILY Rx Instructions: take with 150mg tab furosemide 20 mg tablet 80 mg PO DAILY Hold Instructions: Resume on 12/02/23. Patient Comments: 80mg in am and 40mg at 1700 furosemide [Lasix] 40 mg tablet 40 mg PO 1700 Hold Instructions: Resume on 12/02/23. oxycodone 5 mg tablet 5 mg PO Q6H PRN (Reason: pain) 3 Days Qty: 12 0RF clindamycin in 5 % dextrose 600 mg/50 mL Piggyback 600 mg IV Q6 Qty: 0 0RF Piperacil/Tazobactam [Zosyn] 3.375 GM 0.9% Normal Saline (50mL MB+) 50 ML 12.5 mls/hr IV Q8 Ordered By: Avinash Woods MD Last Taken: Unknown Primary Care Provider: Ida Norris Referrals: Ida Norris DO [Primary Care Provider] - [facility] [place] appointment Activity Restrictions/Additional Instructions: This is lymphedema not an abscess nothing to incise and drain at this time. Make sure you keep a close eye on it so it does not get infected or become an abscess but right now it is just indurated swollen tissue. Follow-up with your primary care physician Dr. Hatch. Finish your current antibiotic prescriptions. Continue taking your Lasix. Disposition Disposition: Home, Self Care
== END 2023-12-02 04:41 | disposition home or self-care (01) ==
PROVIDERS: Emergency Provider Emergency Medicine; PCP Family Medicine; Visit Provider Emergency Medicine
DX: L03.90 Cellulitis, unspecified (principal); J44.9 Chronic obstructive pulmonary disease, unspecified; I48.91 Unspecified atrial fibrillation; E66.01 Morbid (severe) obesity due to excess calories; E11.9 Type 2 diabetes mellitus without complications; R60.0 Localized edema; Z87.891 Personal history of nicotine dependence; Z79.01 Long term (current) use of anticoagulants; D64.9 Anemia, unspecified; I25.10 Atherosclerotic heart disease of native coronary artery without angina pectoris; I10 Essential (primary) hypertension; K21.9 Gastro-esophageal reflux disease without esophagitis; R19.7 Diarrhea, unspecified; I89.0 Lymphedema, not elsewhere classified
CPT/HCPCS: 99282

== ENCOUNTER → 2023-12-11 08:16 | Outpatient (REF) | payer MEDICAID, SELFPAY ==
[2023-12-11 10:01] LABS: Erythrocyte Sedimentation Rate 69 mm/hr (0-20)
[2023-12-11 10:02] LABS: Absolute Lymphocyte Count 2.46 X10^3/uL (0.83-4.51); Absolute Neutrophil Count 8.5 X10^3/uL (2.0-7.7); Basophil# 0.07 X10^3/uL; Basophil% 0.6 % (0-1); Eosinophil# 0.24 X10^3/uL; Hematocrit 33.6 % (40-54); Hemoglobin 9.3 g/dL (13.0-16.5); Lymphocyte # 2.46 X10^3/ul (0.83-4.51); Lymphocyte % 20.5 % (19-41); Mean Corp Hgb Conc 27.7 g/dL (32-36); Mean Corpuscular Hgb 25.1 pg (27.0-32.0); Mean Corpuscular Volume 90.6 fL (80-94); Mean Platelet Vol. 9.3 fl (6.2-12.0); Monocyte# 0.64 X10^3/uL; Monocyte% 5.3 % (0-10); NRBC Flagged by Analyzer 0 % (0-5); Neutrophil # 8.49 X10^3/uL (2.7-7.7); Neutrophil % 70.8 % (47-70); Platelet Count 372 K/mm3 (150-450); RBC Distribution Width CV 17.1 % (11.6-14.6); RBC Distribution Width SD 57.1 fl (35.1-43.9); Red Blood Count 3.71 M/mm3 (4.6-6.2)
[2023-12-11 10:29] LABS: ALB/GLOB Ratio 0.6 RATIO (0.9-2.4); AST(SGOT) 18 U/L (15-37); Alanine Aminotransfer ALT/SGPT 22 U/L (16-61); Albumin, Serum 2.8 g/dL (3.2-5.0); Alkaline Phosphatase 92 U/L (45-117); Anion Gap 2 (5-15); BUN 18 mg/dL (7-18); BUN/Creat Ratio 10.6 RATIO (10-20); Calcium,Total 8.9 mg/dL (8.5-10.1); Chloride 104 mmol/L (98-107); EST Glomerular Filtration Rate 45 mL/min (>60); Est Glom Filt Rate - Afr Amer 54 mL/min (>60); Globulin 4.9 g/dL (2.2-4.2); Glucose 113 mg/dL (74-106); Potassium 4.2 mmol/L (3.5-5.1); Protein, Total 7.7 g/dL (6.4-8.2); Sodium Level 138 mmol/L (136-145)
[2023-12-11 10:50] LABS: BNP,B-Type NATRIURETIC PEPTIDE 45.7 pg/mL (0-100)
== END ==
LOC: LAB 08:16
PROVIDERS: PCP Family Medicine; Visit Provider Family Medicine
DX: K61.0 Anal abscess (principal); E11.9 Type 2 diabetes mellitus without complications; E03.9 Hypothyroidism, unspecified; Z51.81 Encounter for therapeutic drug level monitoring; I50.43 Acute on chronic combined systolic (congestive) and diastolic (congestive) heart failure
CPT/HCPCS: 36415; 80053; 83880; 84443; 85025; 85652; 86140

== ENCOUNTER → 2023-12-23 | Outpatient (CLI) | payer MEDICAID, SELFPAY ==
[2023-12-23 10:19] LABS: Absolute Lymphocyte Count 1.91 X10^3/uL (0.83-4.51); Basophil# 0.04 X10^3/uL; Basophil% 0.5 % (0-1); Eosinophil# 0.45 X10^3/uL; Eosinophils% 5.1 % (0-5); Hematocrit 32.9 % (40-54); Hemoglobin 9.2 g/dL (13.0-16.5); Lymphocyte # 1.91 X10^3/ul (0.83-4.51); Lymphocyte % 21.5 % (19-41); Mean Corpuscular Hgb 25.4 pg (27.0-32.0); Mean Corpuscular Volume 90.9 fL (80-94); Mean Platelet Vol. 9.2 fl (6.2-12.0); Monocyte# 0.42 X10^3/uL; Monocyte% 4.7 % (0-10); NRBC Flagged by Analyzer 0 % (0-5); Neutrophil # 6.02 X10^3/uL (2.7-7.7); Neutrophil % 67.7 % (47-70); Platelet Count 245 K/mm3 (150-450); RBC Distribution Width CV 16.4 % (11.6-14.6); RBC Distribution Width SD 54.3 fl (35.1-43.9); Red Blood Count 3.62 M/mm3 (4.6-6.2); White Blood Count 8.9 K/mm3 (4.4-11.0)
[2023-12-23 10:27] LABS: ALB/GLOB Ratio 0.5 RATIO (0.9-2.4); AST(SGOT) 9 U/L (15-37); Alanine Aminotransfer ALT/SGPT 18 U/L (16-61); Albumin, Serum 2.6 g/dL (3.2-5.0); Alkaline Phosphatase 114 U/L (45-117); Anion Gap 3 (5-15); BUN 14 mg/dL (7-18); BUN/Creat Ratio 11.9 RATIO (10-20); Calcium,Total 8.7 mg/dL (8.5-10.1); Chloride 105 mmol/L (98-107); Creatinine, Serum 1.18 mg/dL (0.70-1.30); EST Glomerular Filtration Rate 68 mL/min (>60); Est Glom Filt Rate - Afr Amer 83 mL/min (>60); Globulin 4.8 g/dL (2.2-4.2); Glucose 174 mg/dL (74-106); Potassium 4.2 mmol/L (3.5-5.1); Protein, Total 7.4 g/dL (6.4-8.2); Sodium Level 137 mmol/L (136-145)
[2023-12-23 10:38] LABS: Erythrocyte Sedimentation Rate 61 mm/hr (0-20)
== END | disposition home or self-care (01) ==
LOC: LAB 04:05
PROVIDERS: PCP Family Medicine; Referring Provider Family Medicine; Visit Provider Family Medicine
DX: K61.0 Anal abscess (principal); I50.43 Acute on chronic combined systolic (congestive) and diastolic (congestive) heart failure; E11.9 Type 2 diabetes mellitus without complications; E03.9 Hypothyroidism, unspecified; Z51.81 Encounter for therapeutic drug level monitoring
CPT/HCPCS: 36415; 80053; 85025; 85652; 86140

== ENCOUNTER → 2024-01-01 | Outpatient (CLI) | payer MEDICAID, SELFPAY ==
[2024-01-01 09:50] LABS: Erythrocyte Sedimentation Rate 35 mm/hr (0-20)
[2024-01-01 09:51] LABS: Absolute Lymphocyte Count 2.66 X10^3/uL (0.83-4.51); Absolute Neutrophil Count 7.6 X10^3/uL (2.0-7.7); Basophil# 0.06 X10^3/uL; Basophil% 0.5 % (0-1); Eosinophils% 1.8 % (0-5); Hematocrit 33.7 % (40-54); Hemoglobin 9.4 g/dL (13.0-16.5); Lymphocyte # 2.66 X10^3/ul (0.83-4.51); Lymphocyte % 23.7 % (19-41); Mean Corp Hgb Conc 27.9 g/dL (32-36); Mean Corpuscular Volume 89.6 fL (80-94); Mean Platelet Vol. 9.2 fl (6.2-12.0); Monocyte% 5.4 % (0-10); NRBC Flagged by Analyzer 0 % (0-5); Neutrophil % 67.8 % (47-70); Platelet Count 297 K/mm3 (150-450); RBC Distribution Width CV 15.7 % (11.6-14.6); RBC Distribution Width SD 51.4 fl (35.1-43.9); Red Blood Count 3.76 M/mm3 (4.6-6.2); White Blood Count 11.2 K/mm3 (4.4-11.0)
[2024-01-01 10:09] LABS: ALB/GLOB Ratio 0.5 RATIO (0.9-2.4); AST(SGOT) 13 U/L (15-37); Alanine Aminotransfer ALT/SGPT 19 U/L (16-61); Albumin, Serum 2.6 g/dL (3.2-5.0); Alkaline Phosphatase 115 U/L (45-117); Anion Gap 2 (5-15); BUN 15 mg/dL (7-18); BUN/Creat Ratio 12.8 RATIO (10-20); Chloride 102 mmol/L (98-107); Creatinine, Serum 1.17 mg/dL (0.70-1.30); EST Glomerular Filtration Rate 69 mL/min (>60); Est Glom Filt Rate - Afr Amer 83 mL/min (>60); Ferritin 34 ng/mL (26-388); Globulin 5.1 g/dL (2.2-4.2); Glucose 134 mg/dL (74-106); Iron 26 ug/dL (65-175); Potassium 4.2 mmol/L (3.5-5.1); Protein, Total 7.7 g/dL (6.4-8.2); Sodium Level 138 mmol/L (136-145)
== END | disposition home or self-care (01) ==
LOC: LAB 08:33
PROVIDERS: PCP Family Medicine; Visit Provider Family Medicine
DX: K61.0 Anal abscess (principal); I50.43 Acute on chronic combined systolic (congestive) and diastolic (congestive) heart failure; E11.9 Type 2 diabetes mellitus without complications; E03.9 Hypothyroidism, unspecified; E61.1 Iron deficiency; D64.9 Anemia, unspecified; Z51.81 Encounter for therapeutic drug level monitoring
CPT/HCPCS: 36415; 80053; 82728; 83540; 85025; 85652; 86140

== ENCOUNTER → 2024-01-13 | Outpatient (CLI) | payer MEDICAID, SELFPAY ==
[2024-01-13 10:04] LABS: Erythrocyte Sedimentation Rate 58 mm/hr (0-20)
[2024-01-13 10:07] LABS: Absolute Lymphocyte Count 2.28 X10^3/uL (0.83-4.51); Absolute Neutrophil Count 9.3 X10^3/uL (2.0-7.7); Basophil# 0.04 X10^3/uL; Basophil% 0.3 % (0-1); Eosinophil# 0.16 X10^3/uL; Eosinophils% 1.3 % (0-5); Hemoglobin 9.9 g/dL (13.0-16.5); Lymphocyte # 2.28 X10^3/ul (0.83-4.51); Lymphocyte % 18.4 % (19-41); Mean Corp Hgb Conc 28.3 g/dL (32-36); Mean Corpuscular Hgb 25.2 pg (27.0-32.0); Mean Corpuscular Volume 89.1 fL (80-94); Mean Platelet Vol. 9.6 fl (6.2-12.0); Monocyte# 0.55 X10^3/uL; Monocyte% 4.4 % (0-10); NRBC Flagged by Analyzer 0 % (0-5); Neutrophil # 9.25 X10^3/uL (2.7-7.7); Platelet Count 276 K/mm3 (150-450); RBC Distribution Width SD 49.8 fl (35.1-43.9); Red Blood Count 3.93 M/mm3 (4.6-6.2); White Blood Count 12.4 K/mm3 (4.4-11.0)
[2024-01-13 10:27] LABS: ALB/GLOB Ratio 0.6 RATIO (0.9-2.4); AST(SGOT) 12 U/L (15-37); Alanine Aminotransfer ALT/SGPT 23 U/L (16-61); Albumin, Serum 2.6 g/dL (3.2-5.0); Alkaline Phosphatase 113 U/L (45-117); Anion Gap 2 (5-15); BUN 23 mg/dL (7-18); Calcium,Total 8.8 mg/dL (8.5-10.1); Chloride 100 mmol/L (98-107); Creatinine, Serum 1.15 mg/dL (0.70-1.30); EST Glomerular Filtration Rate 70 mL/min (>60); Est Glom Filt Rate - Afr Amer 85 mL/min (>60); Globulin 4.7 g/dL (2.2-4.2); Glucose 275 mg/dL (74-106); Potassium 4.2 mmol/L (3.5-5.1); Protein, Total 7.3 g/dL (6.4-8.2); Sodium Level 135 mmol/L (136-145)
== END | disposition home or self-care (01) ==
LOC: LAB 08:38
PROVIDERS: PCP Family Medicine; Visit Provider Family Medicine
DX: K61.0 Anal abscess (principal); I50.43 Acute on chronic combined systolic (congestive) and diastolic (congestive) heart failure; E11.9 Type 2 diabetes mellitus without complications; E03.9 Hypothyroidism, unspecified; Z51.81 Encounter for therapeutic drug level monitoring; E61.1 Iron deficiency; D64.9 Anemia, unspecified
CPT/HCPCS: 36415; 80053; 85025; 85652; 86140

== ENCOUNTER → 2024-01-20 | Outpatient (CLI) | payer MEDICAID, SELFPAY ==
[2024-01-20 10:12] LABS: Absolute Lymphocyte Count 2.42 X10^3/uL (0.83-4.51); Absolute Neutrophil Count 9.3 X10^3/uL (2.0-7.7); Basophil# 0.07 X10^3/uL; Basophil% 0.5 % (0-1); Eosinophil# 0.26 X10^3/uL; Hemoglobin 10.2 g/dL (13.0-16.5); Lymphocyte # 2.42 X10^3/ul (0.83-4.51); Mean Corp Hgb Conc 28.3 g/dL (32-36); Mean Corpuscular Hgb 24.9 pg (27.0-32.0); Mean Corpuscular Volume 87.8 fL (80-94); Monocyte# 0.58 X10^3/uL; Monocyte% 4.6 % (0-10); NRBC Flagged by Analyzer 0 % (0-5); Neutrophil # 9.33 X10^3/uL (2.7-7.7); Neutrophil % 73.4 % (47-70); Platelet Count 288 K/mm3 (150-450); RBC Distribution Width CV 15.1 % (11.6-14.6); RBC Distribution Width SD 48.8 fl (35.1-43.9); White Blood Count 12.7 K/mm3 (4.4-11.0)
[2024-01-20 10:29] LABS: ALB/GLOB Ratio 0.6 RATIO (0.9-2.4); AST(SGOT) 17 U/L (15-37); Alanine Aminotransfer ALT/SGPT 28 U/L (16-61); Albumin, Serum 2.8 g/dL (3.2-5.0); Alkaline Phosphatase 110 U/L (45-117); Anion Gap 6 (5-15); BUN 20 mg/dL (7-18); Calcium,Total 9.3 mg/dL (8.5-10.1); Chloride 101 mmol/L (98-107); Creatinine, Serum 1.05 mg/dL (0.70-1.30); EST Glomerular Filtration Rate 78 mL/min (>60); Est Glom Filt Rate - Afr Amer 95 mL/min (>60); Globulin 4.8 g/dL (2.2-4.2); Glucose 177 mg/dL (74-106); Potassium 4.4 mmol/L (3.5-5.1); Protein, Total 7.6 g/dL (6.4-8.2); Sodium Level 137 mmol/L (136-145)
[2024-01-20 10:32] LABS: Erythrocyte Sedimentation Rate 62 mm/hr (0-20)
== END | disposition home or self-care (01) ==
LOC: LAB 09:10
PROVIDERS: PCP Family Medicine; Visit Provider Family Medicine
DX: K61.0 Anal abscess (principal); I50.43 Acute on chronic combined systolic (congestive) and diastolic (congestive) heart failure; E11.9 Type 2 diabetes mellitus without complications; E03.9 Hypothyroidism, unspecified; Z51.81 Encounter for therapeutic drug level monitoring; E61.1 Iron deficiency; D64.9 Anemia, unspecified
CPT/HCPCS: 36415; 80053; 85025; 85652; 86140

== ENCOUNTER → 2024-01-27 | Outpatient (CLI) | payer MEDICAID, SELFPAY ==
[2024-01-27 09:59] LABS: Erythrocyte Sedimentation Rate 69 mm/hr (0-20)
[2024-01-27 10:02] LABS: Absolute Lymphocyte Count 2.53 X10^3/uL (0.83-4.51); Absolute Neutrophil Count 8.5 X10^3/uL (2.0-7.7); Basophil# 0.06 X10^3/uL; Basophil% 0.5 % (0-1); Eosinophils% 1.7 % (0-5); Hematocrit 37.2 % (40-54); Hemoglobin 10.5 g/dL (13.0-16.5); Lymphocyte # 2.53 X10^3/ul (0.83-4.51); Lymphocyte % 21.2 % (19-41); Mean Corp Hgb Conc 28.2 g/dL (32-36); Mean Corpuscular Hgb 24.5 pg (27.0-32.0); Mean Corpuscular Volume 86.7 fL (80-94); Mean Platelet Vol. 9.7 fl (6.2-12.0); Monocyte# 0.57 X10^3/uL; Monocyte% 4.8 % (0-10); NRBC Flagged by Analyzer 0 % (0-5); Neutrophil # 8.49 X10^3/uL (2.7-7.7); Neutrophil % 71.3 % (47-70); Platelet Count 269 K/mm3 (150-450); RBC Distribution Width CV 14.6 % (11.6-14.6); RBC Distribution Width SD 46.5 fl (35.1-43.9); Red Blood Count 4.29 M/mm3 (4.6-6.2); White Blood Count 11.9 K/mm3 (4.4-11.0)
[2024-01-27 10:03] LABS: ALB/GLOB Ratio 0.6 RATIO (0.9-2.4); AST(SGOT) 8 U/L (15-37); Alanine Aminotransfer ALT/SGPT 25 U/L (16-61); Albumin, Serum 2.7 g/dL (3.2-5.0); Alkaline Phosphatase 128 U/L (45-117); Anion Gap 2 (5-15); BUN 20 mg/dL (7-18); BUN/Creat Ratio 16.3 RATIO (10-20); Calcium,Total 8.9 mg/dL (8.5-10.1); Chloride 102 mmol/L (98-107); Creatinine, Serum 1.23 mg/dL (0.70-1.30); EST Glomerular Filtration Rate 65 mL/min (>60); Est Glom Filt Rate - Afr Amer 79 mL/min (>60); Globulin 4.8 g/dL (2.2-4.2); Glucose 185 mg/dL (74-106); Potassium 4.1 mmol/L (3.5-5.1); Protein, Total 7.5 g/dL (6.4-8.2); Sodium Level 138 mmol/L (136-145)
== END | disposition home or self-care (01) ==
LOC: LAB 06:48
PROVIDERS: PCP Family Medicine; Referring Provider Family Medicine; Visit Provider Family Medicine
DX: K61.0 Anal abscess (principal); I50.43 Acute on chronic combined systolic (congestive) and diastolic (congestive) heart failure; E11.9 Type 2 diabetes mellitus without complications; E03.9 Hypothyroidism, unspecified; Z51.81 Encounter for therapeutic drug level monitoring; E61.1 Iron deficiency; D64.9 Anemia, unspecified
CPT/HCPCS: 36415; 80053; 85025; 85652; 86140

== ENCOUNTER → 2024-02-03 | Outpatient (CLI) | payer MEDICAID, SELFPAY ==
[2024-02-03 09:47] LABS: Erythrocyte Sedimentation Rate 39 mm/hr (0-20)
[2024-02-03 09:49] LABS: Absolute Neutrophil Count 8.7 X10^3/uL (2.0-7.7); Basophil# 0.06 X10^3/uL; Basophil% 0.5 % (0-1); Eosinophil# 0.18 X10^3/uL; Eosinophils% 1.5 % (0-5); Hemoglobin 10.9 g/dL (13.0-16.5); Lymphocyte % 20.8 % (19-41); Mean Corp Hgb Conc 27.9 g/dL (32-36); Mean Corpuscular Volume 85.9 fL (80-94); Mean Platelet Vol. 9.5 fl (6.2-12.0); Monocyte# 0.56 X10^3/uL; Monocyte% 4.7 % (0-10); NRBC Flagged by Analyzer 0 % (0-5); Neutrophil # 8.66 X10^3/uL (2.7-7.7); Neutrophil % 71.9 % (47-70); Platelet Count 296 K/mm3 (150-450); RBC Distribution Width CV 14.4 % (11.6-14.6); RBC Distribution Width SD 45.4 fl (35.1-43.9); Red Blood Count 4.54 M/mm3 (4.6-6.2)
[2024-02-03 10:08] LABS: ALB/GLOB Ratio 0.5 RATIO (0.9-2.4); AST(SGOT) 11 U/L (15-37); Alanine Aminotransfer ALT/SGPT 29 U/L (16-61); Albumin, Serum 2.8 g/dL (3.2-5.0); Alkaline Phosphatase 134 U/L (45-117); Anion Gap 3 (5-15); BUN 20 mg/dL (7-18); BUN/Creat Ratio 16.7 RATIO (10-20); Calcium,Total 9.1 mg/dL (8.5-10.1); Chloride 99 mmol/L (98-107); EST Glomerular Filtration Rate 67 mL/min (>60); Est Glom Filt Rate - Afr Amer 81 mL/min (>60); Free T3 2.1 pg/mL (2.18-3.98); Globulin 5.1 g/dL (2.2-4.2); Glucose 161 mg/dL (74-106); Potassium 4.4 mmol/L (3.5-5.1); Protein, Total 7.9 g/dL (6.4-8.2); Sodium Level 136 mmol/L (136-145); T4 Free Direct 1.08 ng/dL (0.76-1.46); Thyroid Stim Hormone (TSH) 1.48 uIU/mL (0.358-3.74)
== END | disposition home or self-care (01) ==
LOC: LAB 08:58
PROVIDERS: PCP Family Medicine; Visit Provider Family Medicine
DX: K61.0 Anal abscess (principal); M06.9 Rheumatoid arthritis, unspecified; I50.43 Acute on chronic combined systolic (congestive) and diastolic (congestive) heart failure; E11.9 Type 2 diabetes mellitus without complications; E03.9 Hypothyroidism, unspecified; Z51.81 Encounter for therapeutic drug level monitoring; E61.1 Iron deficiency; D64.9 Anemia, unspecified
CPT/HCPCS: 36415; 80053; 84439; 84443; 84481; 85025; 85652; 86140

== ENCOUNTER → 2024-02-17 | Outpatient (CLI) | payer MEDICAID, SELFPAY ==
[2024-02-17 09:45] LABS: Erythrocyte Sedimentation Rate 70 mm/hr (0-20)
[2024-02-17 09:47] LABS: Absolute Lymphocyte Count 3.11 X10^3/uL (0.83-4.51); Basophil# 0.04 X10^3/uL; Basophil% 0.3 % (0-1); Eosinophil# 0.16 X10^3/uL; Eosinophils% 1.3 % (0-5); Hematocrit 37.5 % (40-54); Hemoglobin 10.6 g/dL (13.0-16.5); Lymphocyte # 3.11 X10^3/ul (0.83-4.51); Lymphocyte % 25.8 % (19-41); Mean Corp Hgb Conc 28.3 g/dL (32-36); Mean Corpuscular Hgb 24.2 pg (27.0-32.0); Mean Corpuscular Volume 85.6 fL (80-94); Mean Platelet Vol. 9.3 fl (6.2-12.0); Monocyte# 0.62 X10^3/uL; Monocyte% 5.1 % (0-10); NRBC Flagged by Analyzer 0 % (0-5); Neutrophil # 8.01 X10^3/uL (2.7-7.7); Neutrophil % 66.6 % (47-70); Platelet Count 267 K/mm3 (150-450); RBC Distribution Width CV 14.5 % (11.6-14.6); RBC Distribution Width SD 45.1 fl (35.1-43.9); Red Blood Count 4.38 M/mm3 (4.6-6.2); White Blood Count 12.1 K/mm3 (4.4-11.0)
[2024-02-17 09:55] LABS: ALB/GLOB Ratio 0.5 RATIO (0.9-2.4); AST(SGOT) 11 U/L (15-37); Alanine Aminotransfer ALT/SGPT 25 U/L (16-61); Albumin, Serum 2.6 g/dL (3.2-5.0); Alkaline Phosphatase 119 U/L (45-117); Anion Gap 2 (5-15); BUN 16 mg/dL (7-18); BUN/Creat Ratio 14.8 RATIO (10-20); Calcium,Total 8.7 mg/dL (8.5-10.1); Chloride 101 mmol/L (98-107); Creatinine, Serum 1.08 mg/dL (0.70-1.30); EST Glomerular Filtration Rate 76 mL/min (>60); Est Glom Filt Rate - Afr Amer 92 mL/min (>60); Globulin 4.9 g/dL (2.2-4.2); Glucose 159 mg/dL (74-106); Potassium 3.9 mmol/L (3.5-5.1); Protein, Total 7.5 g/dL (6.4-8.2); Sodium Level 138 mmol/L (136-145)
[2024-02-17 10:00] LABS: Hemoglobin A1c 8.7 % (3.8-5.6)
== END | disposition home or self-care (01) ==
PROVIDERS: PCP Family Medicine; Visit Provider Family Medicine
DX: E11.9 Type 2 diabetes mellitus without complications (principal); I50.43 Acute on chronic combined systolic (congestive) and diastolic (congestive) heart failure; K61.0 Anal abscess; E03.9 Hypothyroidism, unspecified; Z51.81 Encounter for therapeutic drug level monitoring; E61.1 Iron deficiency; D64.9 Anemia, unspecified
CPT/HCPCS: 36415; 80053; 83036; 85025; 85652; 86140

== ENCOUNTER → 2024-02-24 | Outpatient (CLI) | payer MEDICAID, SELFPAY ==
[2024-02-24 08:54] LABS: Erythrocyte Sedimentation Rate 52 mm/hr (0-20)
[2024-02-24 08:55] LABS: Absolute Lymphocyte Count 2.26 X10^3/uL (0.83-4.51); Absolute Neutrophil Count 8.4 X10^3/uL (2.0-7.7); Basophil# 0.03 X10^3/uL; Basophil% 0.3 % (0-1); Eosinophil# 0.11 X10^3/uL; Lymphocyte # 2.26 X10^3/ul (0.83-4.51); Lymphocyte % 19.7 % (19-41); Mean Corp Hgb Conc 28.9 g/dL (32-36); Mean Corpuscular Hgb 24.4 pg (27.0-32.0); Mean Corpuscular Volume 84.4 fL (80-94); Mean Platelet Vol. 9.6 fl (6.2-12.0); Monocyte# 0.57 X10^3/uL; NRBC Flagged by Analyzer 0 % (0-5); Neutrophil # 8.43 X10^3/uL (2.7-7.7); Neutrophil % 73.4 % (47-70); Platelet Count 291 K/mm3 (150-450); RBC Distribution Width CV 14.6 % (11.6-14.6); RBC Distribution Width SD 44.5 fl (35.1-43.9); White Blood Count 11.5 K/mm3 (4.4-11.0)
[2024-02-24 09:04] LABS: ALB/GLOB Ratio 0.5 RATIO (0.9-2.4); AST(SGOT) 14 U/L (15-37); Alanine Aminotransfer ALT/SGPT 35 U/L (16-61); Albumin, Serum 2.7 g/dL (3.2-5.0); Alkaline Phosphatase 124 U/L (45-117); Anion Gap 5 (5-15); BUN 16 mg/dL (7-18); BUN/Creat Ratio 13.6 RATIO (10-20); Calcium,Total 9.2 mg/dL (8.5-10.1); Chloride 99 mmol/L (98-107); Creatinine, Serum 1.18 mg/dL (0.70-1.30); EST Glomerular Filtration Rate 68 mL/min (>60); Est Glom Filt Rate - Afr Amer 83 mL/min (>60); Glucose 215 mg/dL (74-106); Protein, Total 7.7 g/dL (6.4-8.2); Sodium Level 136 mmol/L (136-145)
== END | disposition home or self-care (01) ==
LOC: LAB 04:24
PROVIDERS: PCP Family Medicine; Visit Provider Family Medicine
DX: K61.0 Anal abscess (principal); I50.43 Acute on chronic combined systolic (congestive) and diastolic (congestive) heart failure; E11.9 Type 2 diabetes mellitus without complications; E03.9 Hypothyroidism, unspecified; Z51.81 Encounter for therapeutic drug level monitoring; E61.1 Iron deficiency; D64.9 Anemia, unspecified
CPT/HCPCS: 36415; 80053; 85025; 85652; 86140

== ENCOUNTER → 2024-03-02 | Outpatient (CLI) | payer MEDICAID, SELFPAY ==
[2024-03-02 08:34] LABS: ALB/GLOB Ratio 0.5 RATIO (0.9-2.4); AST(SGOT) 9 U/L (15-37); Alanine Aminotransfer ALT/SGPT 24 U/L (16-61); Albumin, Serum 2.5 g/dL (3.2-5.0); Alkaline Phosphatase 124 U/L (45-117); Anion Gap 4 (5-15); BUN 20 mg/dL (7-18); BUN/Creat Ratio 17.2 RATIO (10-20); Calcium,Total 8.8 mg/dL (8.5-10.1); Chloride 101 mmol/L (98-107); Creatinine, Serum 1.16 mg/dL (0.70-1.30); EST Glomerular Filtration Rate 70 mL/min (>60); Est Glom Filt Rate - Afr Amer 84 mL/min (>60); Globulin 4.7 g/dL (2.2-4.2); Glucose 233 mg/dL (74-106); Potassium 4.3 mmol/L (3.5-5.1); Protein, Total 7.2 g/dL (6.4-8.2); Sodium Level 139 mmol/L (136-145)
[2024-03-02 08:53] LABS: Erythrocyte Sedimentation Rate 57 mm/hr (0-20)
[2024-03-02 08:57] LABS: Absolute Lymphocyte Count 2.43 X10^3/uL (0.83-4.51); Absolute Neutrophil Count 8.6 X10^3/uL (2.0-7.7); Basophil# 0.05 X10^3/uL; Basophil% 0.4 % (0-1); Eosinophil# 0.12 X10^3/uL; Hematocrit 36.9 % (40-54); Hemoglobin 10.3 g/dL (13.0-16.5); Lymphocyte # 2.43 X10^3/ul (0.83-4.51); Lymphocyte % 20.7 % (19-41); Mean Corp Hgb Conc 27.9 g/dL (32-36); Mean Corpuscular Hgb 23.8 pg (27.0-32.0); Mean Corpuscular Volume 85.4 fL (80-94); Monocyte# 0.47 X10^3/uL; NRBC Flagged by Analyzer 0 % (0-5); Neutrophil # 8.62 X10^3/uL (2.7-7.7); Neutrophil % 73.4 % (47-70); Platelet Count 280 K/mm3 (150-450); RBC Distribution Width CV 14.6 % (11.6-14.6); RBC Distribution Width SD 45.6 fl (35.1-43.9); Red Blood Count 4.32 M/mm3 (4.6-6.2); White Blood Count 11.8 K/mm3 (4.4-11.0)
== END | disposition home or self-care (01) ==
LOC: LAB 04:16
PROVIDERS: PCP Family Medicine; Visit Provider Family Medicine
DX: Z51.81 Encounter for therapeutic drug level monitoring (principal); I50.43 Acute on chronic combined systolic (congestive) and diastolic (congestive) heart failure; E11.9 Type 2 diabetes mellitus without complications; K61.0 Anal abscess; E03.9 Hypothyroidism, unspecified; E61.1 Iron deficiency; D64.9 Anemia, unspecified
CPT/HCPCS: 36415; 80053; 85025; 85652; 86140

== ENCOUNTER → 2024-03-23 | Outpatient (CLI) | payer MEDICAID, SELFPAY ==
[2024-03-23 08:20] LABS: Absolute Lymphocyte Count 2.01 X10^3/uL (0.83-4.51); Absolute Neutrophil Count 8.1 X10^3/uL (2.0-7.7); Basophil# 0.05 X10^3/uL; Basophil% 0.5 % (0-1); Eosinophil# 0.13 X10^3/uL; Eosinophils% 1.2 % (0-5); Hematocrit 37.2 % (40-54); Hemoglobin 10.4 g/dL (13.0-16.5); Lymphocyte # 2.01 X10^3/ul (0.83-4.51); Lymphocyte % 18.6 % (19-41); Mean Corpuscular Hgb 24.1 pg (27.0-32.0); Mean Corpuscular Volume 86.3 fL (80-94); Monocyte# 0.48 X10^3/uL; Monocyte% 4.4 % (0-10); NRBC Flagged by Analyzer 0 % (0-5); Neutrophil % 74.7 % (47-70); Platelet Count 243 K/mm3 (150-450); RBC Distribution Width CV 15.5 % (11.6-14.6); RBC Distribution Width SD 48.5 fl (35.1-43.9); Red Blood Count 4.31 M/mm3 (4.6-6.2); White Blood Count 10.8 K/mm3 (4.4-11.0)
[2024-03-23 08:33] LABS: ALB/GLOB Ratio 0.6 RATIO (0.9-2.4); AST(SGOT) 13 U/L (15-37); Alanine Aminotransfer ALT/SGPT 35 U/L (16-61); Albumin, Serum 2.7 g/dL (3.2-5.0); Alkaline Phosphatase 118 U/L (45-117); Anion Gap 2 (5-15); BUN 14 mg/dL (7-18); BUN/Creat Ratio 13.6 RATIO (10-20); Calcium,Total 9.2 mg/dL (8.5-10.1); Chloride 100 mmol/L (98-107); Creatinine, Serum 1.03 mg/dL (0.70-1.30); EST Glomerular Filtration Rate 80 mL/min (>60); Est Glom Filt Rate - Afr Amer 97 mL/min (>60); Globulin 4.4 g/dL (2.2-4.2); Glucose 244 mg/dL (74-106); Protein, Total 7.1 g/dL (6.4-8.2); Sodium Level 137 mmol/L (136-145)
[2024-03-23 09:30] LABS: Erythrocyte Sedimentation Rate 53 mm/hr (0-20)
== END | disposition home or self-care (01) ==
LOC: LAB 04:42
PROVIDERS: PCP Family Medicine; Visit Provider Family Medicine
DX: Z51.81 Encounter for therapeutic drug level monitoring (principal); I50.43 Acute on chronic combined systolic (congestive) and diastolic (congestive) heart failure; E11.9 Type 2 diabetes mellitus without complications; K61.0 Anal abscess; E03.9 Hypothyroidism, unspecified; E61.1 Iron deficiency; D64.9 Anemia, unspecified
CPT/HCPCS: 36415; 80053; 85025; 85652; 86140

== ENCOUNTER → 2024-03-30 | Outpatient (CLI) | payer MEDICAID, SELFPAY ==
[2024-03-30 09:01] LABS: Absolute Lymphocyte Count 2.35 X10^3/uL (0.83-4.51); Absolute Neutrophil Count 7.3 X10^3/uL (2.0-7.7); Basophil# 0.03 X10^3/uL; Basophil% 0.3 % (0-1); Eosinophil# 0.14 X10^3/uL; Eosinophils% 1.4 % (0-5); Hematocrit 37.1 % (40-54); Hemoglobin 10.3 g/dL (13.0-16.5); Lymphocyte # 2.35 X10^3/ul (0.83-4.51); Lymphocyte % 22.9 % (19-41); Mean Corp Hgb Conc 27.8 g/dL (32-36); Mean Corpuscular Hgb 24.1 pg (27.0-32.0); Mean Corpuscular Volume 86.7 fL (80-94); Mean Platelet Vol. 10.1 fl (6.2-12.0); Monocyte% 3.9 % (0-10); NRBC Flagged by Analyzer 0 % (0-5); Neutrophil # 7.28 X10^3/uL (2.7-7.7); Neutrophil % 71.1 % (47-70); Platelet Count 236 K/mm3 (150-450); RBC Distribution Width CV 15.9 % (11.6-14.6); Red Blood Count 4.28 M/mm3 (4.6-6.2); White Blood Count 10.2 K/mm3 (4.4-11.0)
[2024-03-30 09:17] LABS: ALB/GLOB Ratio 0.6 RATIO (0.9-2.4); AST(SGOT) 12 U/L (15-37); Alanine Aminotransfer ALT/SGPT 29 U/L (16-61); Albumin, Serum 2.6 g/dL (3.2-5.0); Alkaline Phosphatase 116 U/L (45-117); Anion Gap 4 (5-15); BUN 16 mg/dL (7-18); BUN/Creat Ratio 14.4 RATIO (10-20); Calcium,Total 9.2 mg/dL (8.5-10.1); Chloride 102 mmol/L (98-107); Creatinine, Serum 1.11 mg/dL (0.70-1.30); EST Glomerular Filtration Rate 73 mL/min (>60); Est Glom Filt Rate - Afr Amer 89 mL/min (>60); Globulin 4.3 g/dL (2.2-4.2); Glucose 213 mg/dL (74-106); Protein, Total 6.9 g/dL (6.4-8.2); Sodium Level 140 mmol/L (136-145)
[2024-03-30 09:19] LABS: Erythrocyte Sedimentation Rate 45 mm/hr (0-20)
== END | disposition home or self-care (01) ==
LOC: LAB 04:30
PROVIDERS: PCP Family Medicine; Visit Provider Family Medicine
DX: Z51.81 Encounter for therapeutic drug level monitoring (principal); I50.43 Acute on chronic combined systolic (congestive) and diastolic (congestive) heart failure; E11.9 Type 2 diabetes mellitus without complications; K61.0 Anal abscess; E03.9 Hypothyroidism, unspecified; E61.1 Iron deficiency; D64.9 Anemia, unspecified
CPT/HCPCS: 36415; 80053; 85025; 85652; 86140

== ENCOUNTER → 2024-04-06 | Outpatient (CLI) | payer MEDICAID, SELFPAY ==
[2024-04-06 09:39] LABS: ALB/GLOB Ratio 0.6 RATIO (0.9-2.4); AST(SGOT) 12 U/L (15-37); Alanine Aminotransfer ALT/SGPT 29 U/L (16-61); Albumin, Serum 2.6 g/dL (3.2-5.0); Alkaline Phosphatase 117 U/L (45-117); Anion Gap 3 (5-15); BUN 20 mg/dL (7-18); BUN/Creat Ratio 18.3 RATIO (10-20); Calcium,Total 8.9 mg/dL (8.5-10.1); Chloride 101 mmol/L (98-107); Creatinine, Serum 1.09 mg/dL (0.70-1.30); EST Glomerular Filtration Rate 75 mL/min (>60); Est Glom Filt Rate - Afr Amer 90 mL/min (>60); Globulin 4.4 g/dL (2.2-4.2); Glucose 249 mg/dL (74-106); Sodium Level 138 mmol/L (136-145)
[2024-04-06 09:43] LABS: Erythrocyte Sedimentation Rate 49 mm/hr (0-20)
[2024-04-06 09:46] LABS: Absolute Lymphocyte Count 2.71 X10^3/uL (0.83-4.51); Absolute Neutrophil Count 7.6 X10^3/uL (2.0-7.7); Basophil# 0.05 X10^3/uL; Basophil% 0.4 % (0-1); Eosinophil# 0.15 X10^3/uL; Eosinophils% 1.3 % (0-5); Hematocrit 36.9 % (40-54); Hemoglobin 10.4 g/dL (13.0-16.5); Lymphocyte # 2.71 X10^3/ul (0.83-4.51); Lymphocyte % 24.3 % (19-41); Mean Corp Hgb Conc 28.2 g/dL (32-36); Mean Corpuscular Hgb 24.4 pg (27.0-32.0); Mean Corpuscular Volume 86.6 fL (80-94); Mean Platelet Vol. 10.4 fl (6.2-12.0); Monocyte# 0.55 X10^3/uL; Monocyte% 4.9 % (0-10); NRBC Flagged by Analyzer 0 % (0-5); Neutrophil # 7.62 X10^3/uL (2.7-7.7); Neutrophil % 68.4 % (47-70); Platelet Count 245 K/mm3 (150-450); RBC Distribution Width CV 16.1 % (11.6-14.6); RBC Distribution Width SD 50.8 fl (35.1-43.9); Red Blood Count 4.26 M/mm3 (4.6-6.2); White Blood Count 11.2 K/mm3 (4.4-11.0)
== END | disposition home or self-care (01) ==
LOC: LAB 04:12
PROVIDERS: PCP Family Medicine; Visit Provider Family Medicine
DX: Z51.81 Encounter for therapeutic drug level monitoring (principal); I50.43 Acute on chronic combined systolic (congestive) and diastolic (congestive) heart failure; E11.9 Type 2 diabetes mellitus without complications; K61.0 Anal abscess; E03.9 Hypothyroidism, unspecified; D64.9 Anemia, unspecified; E61.1 Iron deficiency
CPT/HCPCS: 36415; 80053; 85025; 85652; 86140

== ENCOUNTER 2024-04-13 04:02 | Outpatient (CLI) | payer MEDICAID, SELFPAY ==
[2024-04-13 09:08] LABS: Erythrocyte Sedimentation Rate 31 mm/hr (0-20)
[2024-04-13 09:11] LABS: Absolute Neutrophil Count 7.2 X10^3/uL (2.0-7.7); Basophil# 0.05 X10^3/uL; Basophil% 0.5 % (0-1); Eosinophil# 0.15 X10^3/uL; Eosinophils% 1.5 % (0-5); Hematocrit 36.5 % (40-54); Hemoglobin 10.1 g/dL (13.0-16.5); Lymphocyte % 23.2 % (19-41); Mean Corp Hgb Conc 27.7 g/dL (32-36); Mean Corpuscular Hgb 23.8 pg (27.0-32.0); Mean Corpuscular Volume 85.9 fL (80-94); Mean Platelet Vol. 9.9 fl (6.2-12.0); Monocyte# 0.49 X10^3/uL; Monocyte% 4.7 % (0-10); NRBC Flagged by Analyzer 0 % (0-5); Neutrophil # 7.17 X10^3/uL (2.7-7.7); Neutrophil % 69.3 % (47-70); Platelet Count 233 K/mm3 (150-450); RBC Distribution Width SD 50.4 fl (35.1-43.9); Red Blood Count 4.25 M/mm3 (4.6-6.2); White Blood Count 10.3 K/mm3 (4.4-11.0)
[2024-04-13 09:35] LABS: ALB/GLOB Ratio 0.6 RATIO (0.9-2.4); AST(SGOT) 12 U/L (15-37); Alanine Aminotransfer ALT/SGPT 31 U/L (16-61); Albumin, Serum 2.5 g/dL (3.2-5.0); Alkaline Phosphatase 116 U/L (45-117); Anion Gap 7 (5-15); BUN 20 mg/dL (7-18); BUN/Creat Ratio 17.9 RATIO (10-20); Chloride 99 mmol/L (98-107); Creatinine, Serum 1.12 mg/dL (0.70-1.30); EST Glomerular Filtration Rate 72 mL/min (>60); Est Glom Filt Rate - Afr Amer 88 mL/min (>60); Globulin 4.3 g/dL (2.2-4.2); Glucose 249 mg/dL (74-106); Potassium 3.9 mmol/L (3.5-5.1); Protein, Total 6.8 g/dL (6.4-8.2); Sodium Level 138 mmol/L (136-145)
== END 2024-04-13 23:59 | disposition home or self-care (01) ==
LOC: LAB 04:05
PROVIDERS: PCP Family Medicine; Visit Provider Family Medicine
DX: K61.0 Anal abscess (principal); I50.43 Acute on chronic combined systolic (congestive) and diastolic (congestive) heart failure; E11.9 Type 2 diabetes mellitus without complications; E03.9 Hypothyroidism, unspecified; E61.1 Iron deficiency; D64.9 Anemia, unspecified; Z51.81 Encounter for therapeutic drug level monitoring
CPT/HCPCS: 36415; 80053; 85025; 85652; 86140

== ENCOUNTER → 2024-04-22 | Outpatient (CLI) | payer MEDICAID, SELFPAY ==
[2024-04-22 08:29] LABS: ALB/GLOB Ratio 0.6 RATIO (0.9-2.4); AST(SGOT) 20 U/L (15-37); Alanine Aminotransfer ALT/SGPT 32 U/L (16-61); Albumin, Serum 2.6 g/dL (3.2-5.0); Alkaline Phosphatase 122 U/L (45-117); Anion Gap 5 (5-15); BUN 18 mg/dL (7-18); BUN/Creat Ratio 16.5 RATIO (10-20); Calcium,Total 9.1 mg/dL (8.5-10.1); Chloride 101 mmol/L (98-107); Creatinine, Serum 1.09 mg/dL (0.70-1.30); EST Glomerular Filtration Rate 75 mL/min (>60); Est Glom Filt Rate - Afr Amer 90 mL/min (>60); Globulin 4.1 g/dL (2.2-4.2); Glucose 254 mg/dL (74-106); Potassium 4.3 mmol/L (3.5-5.1); Protein, Total 6.7 g/dL (6.4-8.2); Sodium Level 138 mmol/L (136-145)
[2024-04-22 08:35] LABS: Erythrocyte Sedimentation Rate 27 mm/hr (0-20)
[2024-04-22 08:37] LABS: Absolute Lymphocyte Count 2.01 X10^3/uL (0.83-4.51); Absolute Neutrophil Count 7.5 X10^3/uL (2.0-7.7); Basophil# 0.05 X10^3/uL; Basophil% 0.5 % (0-1); Eosinophil# 0.13 X10^3/uL; Eosinophils% 1.3 % (0-5); Hematocrit 35.8 % (40-54); Hemoglobin 9.9 g/dL (13.0-16.5); Lymphocyte # 2.01 X10^3/ul (0.83-4.51); Lymphocyte % 19.6 % (19-41); Mean Corp Hgb Conc 27.7 g/dL (32-36); Mean Corpuscular Hgb 23.9 pg (27.0-32.0); Mean Corpuscular Volume 86.3 fL (80-94); Mean Platelet Vol. 10.1 fl (6.2-12.0); Monocyte# 0.46 X10^3/uL; Monocyte% 4.5 % (0-10); NRBC Flagged by Analyzer 0 % (0-5); Neutrophil # 7.53 X10^3/uL (2.7-7.7); Neutrophil % 73.5 % (47-70); Platelet Count 237 K/mm3 (150-450); RBC Distribution Width SD 49.8 fl (35.1-43.9); Red Blood Count 4.15 M/mm3 (4.6-6.2); White Blood Count 10.2 K/mm3 (4.4-11.0)
== END | disposition home or self-care (01) ==
LOC: LAB 04:16
PROVIDERS: PCP Family Medicine; Visit Provider Family Medicine
DX: K61.0 Anal abscess (principal); I50.43 Acute on chronic combined systolic (congestive) and diastolic (congestive) heart failure; E11.9 Type 2 diabetes mellitus without complications; E03.9 Hypothyroidism, unspecified; E61.1 Iron deficiency; D64.9 Anemia, unspecified; Z51.81 Encounter for therapeutic drug level monitoring
CPT/HCPCS: 36415; 80053; 85025; 85652; 86140

== ENCOUNTER → 2024-04-27 | Outpatient (CLI) | payer MEDICAID, SELFPAY ==
[2024-04-27 09:02] LABS: ALB/GLOB Ratio 0.6 RATIO (0.9-2.4); AST(SGOT) 13 U/L (15-37); Alanine Aminotransfer ALT/SGPT 27 U/L (16-61); Albumin, Serum 2.7 g/dL (3.2-5.0); Alkaline Phosphatase 125 U/L (45-117); Anion Gap 4 (5-15); BUN 16 mg/dL (7-18); Calcium,Total 9.1 mg/dL (8.5-10.1); Chloride 100 mmol/L (98-107); Creatinine, Serum 1.07 mg/dL (0.70-1.30); EST Glomerular Filtration Rate 76 mL/min (>60); Est Glom Filt Rate - Afr Amer 92 mL/min (>60); Globulin 4.3 g/dL (2.2-4.2); Glucose 252 mg/dL (74-106); Potassium 4.2 mmol/L (3.5-5.1); Sodium Level 138 mmol/L (136-145)
[2024-04-27 09:08] LABS: Erythrocyte Sedimentation Rate 42 mm/hr (0-20)
[2024-04-27 09:09] LABS: Absolute Lymphocyte Count 2.14 X10^3/uL (0.83-4.51); Absolute Neutrophil Count 8.1 X10^3/uL (2.0-7.7); Basophil# 0.05 X10^3/uL; Basophil% 0.5 % (0-1); Eosinophil# 0.14 X10^3/uL; Eosinophils% 1.3 % (0-5); Hematocrit 36.3 % (40-54); Hemoglobin 10.1 g/dL (13.0-16.5); Lymphocyte # 2.14 X10^3/ul (0.83-4.51); Lymphocyte % 19.4 % (19-41); Mean Corp Hgb Conc 27.8 g/dL (32-36); Mean Corpuscular Volume 86.4 fL (80-94); Mean Platelet Vol. 10.2 fl (6.2-12.0); Monocyte% 4.5 % (0-10); NRBC Flagged by Analyzer 0 % (0-5); Neutrophil # 8.14 X10^3/uL (2.7-7.7); Neutrophil % 73.7 % (47-70); Platelet Count 259 K/mm3 (150-450); RBC Distribution Width CV 15.9 % (11.6-14.6); RBC Distribution Width SD 50.4 fl (35.1-43.9)
== END | disposition home or self-care (01) ==
LOC: LAB 08:27
PROVIDERS: PCP Family Medicine; Visit Provider Family Medicine
DX: E11.9 Type 2 diabetes mellitus without complications (principal); I50.43 Acute on chronic combined systolic (congestive) and diastolic (congestive) heart failure; E03.9 Hypothyroidism, unspecified; E61.1 Iron deficiency; K61.0 Anal abscess; D64.9 Anemia, unspecified; Z51.81 Encounter for therapeutic drug level monitoring
CPT/HCPCS: 36415; 80053; 85025; 85652; 86140

== ENCOUNTER → 2024-05-04 | Outpatient (CLI) | payer MEDICAID, SELFPAY ==
[2024-05-04 07:54] LABS: ALB/GLOB Ratio 0.6 RATIO (0.9-2.4); AST(SGOT) 14 U/L (15-37); Alanine Aminotransfer ALT/SGPT 26 U/L (16-61); Albumin, Serum 2.6 g/dL (3.2-5.0); Alkaline Phosphatase 119 U/L (45-117); Anion Gap 3 (5-15); BUN 18 mg/dL (7-18); Calcium,Total 9.2 mg/dL (8.5-10.1); Chloride 100 mmol/L (98-107); EST Glomerular Filtration Rate 67 mL/min (>60); Est Glom Filt Rate - Afr Amer 81 mL/min (>60); Globulin 4.3 g/dL (2.2-4.2); Glucose 245 mg/dL (74-106); Potassium 4.2 mmol/L (3.5-5.1); Protein, Total 6.9 g/dL (6.4-8.2); Sodium Level 138 mmol/L (136-145)
[2024-05-04 08:06] LABS: Erythrocyte Sedimentation Rate 66 mm/hr (0-20)
[2024-05-04 08:07] LABS: Absolute Lymphocyte Count 2.27 X10^3/uL (0.83-4.51); Absolute Neutrophil Count 8.7 X10^3/uL (2.0-7.7); Basophil# 0.04 X10^3/uL; Basophil% 0.3 % (0-1); Eosinophils% 0.8 % (0-5); Hematocrit 37.6 % (40-54); Hemoglobin 10.4 g/dL (13.0-16.5); Lymphocyte # 2.27 X10^3/ul (0.83-4.51); Lymphocyte % 19.2 % (19-41); Mean Corp Hgb Conc 27.7 g/dL (32-36); Mean Corpuscular Hgb 23.8 pg (27.0-32.0); Mean Platelet Vol. 9.9 fl (6.2-12.0); Monocyte# 0.65 X10^3/uL; Monocyte% 5.5 % (0-10); NRBC Flagged by Analyzer 0 % (0-5); Neutrophil % 73.5 % (47-70); Platelet Count 260 K/mm3 (150-450); RBC Distribution Width CV 15.6 % (11.6-14.6); Red Blood Count 4.37 M/mm3 (4.6-6.2); White Blood Count 11.8 K/mm3 (4.4-11.0)
== END | disposition home or self-care (01) ==
LOC: LAB 04:48
PROVIDERS: PCP Family Medicine; Visit Provider Family Medicine
DX: K61.0 Anal abscess (principal); I50.43 Acute on chronic combined systolic (congestive) and diastolic (congestive) heart failure; E11.9 Type 2 diabetes mellitus without complications; E03.9 Hypothyroidism, unspecified; E61.1 Iron deficiency; D64.9 Anemia, unspecified; Z51.81 Encounter for therapeutic drug level monitoring
CPT/HCPCS: 36415; 80053; 85025; 85652; 86140

== ENCOUNTER → 2024-05-11 | Outpatient (CLI) | payer MEDICAID, SELFPAY ==
[2024-05-11 09:32] LABS: Erythrocyte Sedimentation Rate 36 mm/hr (0-20)
[2024-05-11 09:35] LABS: Absolute Lymphocyte Count 2.34 X10^3/uL (0.83-4.51); Absolute Neutrophil Count 7.3 X10^3/uL (2.0-7.7); Basophil# 0.04 X10^3/uL; Basophil% 0.4 % (0-1); Eosinophil# 0.15 X10^3/uL; Eosinophils% 1.4 % (0-5); Hematocrit 36.8 % (40-54); Hemoglobin 10.3 g/dL (13.0-16.5); Lymphocyte # 2.34 X10^3/ul (0.83-4.51); Lymphocyte % 22.5 % (19-41); Mean Corpuscular Hgb 23.8 pg (27.0-32.0); Monocyte# 0.53 X10^3/uL; Monocyte% 5.1 % (0-10); NRBC Flagged by Analyzer 0 % (0-5); Neutrophil # 7.25 X10^3/uL (2.7-7.7); Neutrophil % 69.9 % (47-70); Platelet Count 279 K/mm3 (150-450); RBC Distribution Width CV 15.6 % (11.6-14.6); RBC Distribution Width SD 47.9 fl (35.1-43.9); Red Blood Count 4.33 M/mm3 (4.6-6.2); White Blood Count 10.4 K/mm3 (4.4-11.0)
[2024-05-11 09:55] LABS: ALB/GLOB Ratio 0.6 RATIO (0.9-2.4); AST(SGOT) 14 U/L (15-37); Alanine Aminotransfer ALT/SGPT 28 U/L (16-61); Albumin, Serum 2.7 g/dL (3.2-5.0); Alkaline Phosphatase 121 U/L (45-117); Anion Gap 7 (5-15); BUN 19 mg/dL (7-18); Calcium,Total 9.6 mg/dL (8.5-10.1); Chloride 98 mmol/L (98-107); Creatinine, Serum 1.27 mg/dL (0.70-1.30); EST Glomerular Filtration Rate 63 mL/min (>60); Est Glom Filt Rate - Afr Amer 76 mL/min (>60); Globulin 4.5 g/dL (2.2-4.2); Glucose 183 mg/dL (74-106); Potassium 3.6 mmol/L (3.5-5.1); Protein, Total 7.2 g/dL (6.4-8.2); Sodium Level 138 mmol/L (136-145)
== END | disposition home or self-care (01) ==
LOC: LAB 04:24
PROVIDERS: PCP Family Medicine; Visit Provider Family Medicine
DX: Z51.81 Encounter for therapeutic drug level monitoring (principal); I50.42 Chronic combined systolic (congestive) and diastolic (congestive) heart failure; E11.9 Type 2 diabetes mellitus without complications; E61.1 Iron deficiency; D64.9 Anemia, unspecified; E03.9 Hypothyroidism, unspecified; K61.0 Anal abscess
CPT/HCPCS: 36415; 80053; 85025; 85652; 86140

== ENCOUNTER → 2024-05-18 | Outpatient (CLI) | payer MEDICAID, SELFPAY ==
[2024-05-18 08:52] LABS: Erythrocyte Sedimentation Rate 65 mm/hr (0-20)
[2024-05-18 08:55] LABS: Absolute Lymphocyte Count 1.86 X10^3/uL (0.83-4.51); Absolute Neutrophil Count 7.7 X10^3/uL (2.0-7.7); Basophil# 0.05 X10^3/uL; Basophil% 0.5 % (0-1); Eosinophil# 0.15 X10^3/uL; Eosinophils% 1.5 % (0-5); Hematocrit 36.8 % (40-54); Hemoglobin 10.1 g/dL (13.0-16.5); Lymphocyte # 1.86 X10^3/ul (0.83-4.51); Lymphocyte % 18.1 % (19-41); Mean Corp Hgb Conc 27.4 g/dL (32-36); Mean Corpuscular Hgb 23.8 pg (27.0-32.0); Mean Corpuscular Volume 86.8 fL (80-94); Mean Platelet Vol. 10.1 fl (6.2-12.0); Monocyte# 0.44 X10^3/uL; Monocyte% 4.3 % (0-10); NRBC Flagged by Analyzer 0 % (0-5); Neutrophil # 7.73 X10^3/uL (2.7-7.7); Neutrophil % 75.1 % (47-70); Platelet Count 275 K/mm3 (150-450); RBC Distribution Width CV 15.5 % (11.6-14.6); RBC Distribution Width SD 49.1 fl (35.1-43.9); Red Blood Count 4.24 M/mm3 (4.6-6.2); White Blood Count 10.3 K/mm3 (4.4-11.0)
[2024-05-18 09:14] LABS: ALB/GLOB Ratio 0.7 RATIO (0.9-2.4); AST(SGOT) 12 U/L (15-37); Alanine Aminotransfer ALT/SGPT 29 U/L (16-61); Albumin, Serum 2.9 g/dL (3.2-5.0); Alkaline Phosphatase 125 U/L (45-117); Anion Gap 6 (5-15); BUN 17 mg/dL (7-18); BUN/Creat Ratio 14.4 RATIO (10-20); Calcium,Total 9.1 mg/dL (8.5-10.1); Chloride 102 mmol/L (98-107); Creatinine, Serum 1.18 mg/dL (0.70-1.30); EST Glomerular Filtration Rate 68 mL/min (>60); Est Glom Filt Rate - Afr Amer 83 mL/min (>60); Globulin 4.3 g/dL (2.2-4.2); Glucose 270 mg/dL (74-106); Potassium 4.5 mmol/L (3.5-5.1); Protein, Total 7.2 g/dL (6.4-8.2); Sodium Level 138 mmol/L (136-145)
== END | disposition home or self-care (01) ==
LOC: LAB 04:47
PROVIDERS: PCP Family Medicine; Visit Provider Family Medicine
DX: K61.0 Anal abscess (principal); I50.43 Acute on chronic combined systolic (congestive) and diastolic (congestive) heart failure; E11.9 Type 2 diabetes mellitus without complications; E03.9 Hypothyroidism, unspecified; Z51.81 Encounter for therapeutic drug level monitoring; E61.1 Iron deficiency; D64.9 Anemia, unspecified
CPT/HCPCS: 36415; 80053; 85025; 85652; 86140

== ENCOUNTER → 2024-05-25 | Outpatient (CLI) | payer MEDICAID, SELFPAY ==
--- OUTSIDE RECORDS SUMMARY | 2024-05-25 04:49 | XMS RPT_ITS | CCD ---
Author Organization [facility] Care Team Providers Care Site Director Name Role Phone Kuchynski, Jessie Unavailable Unavailable Malys, Dillon Britney Unavailable Unavailable Kuchynski, Jessie Unavailable Unavailable Kuchynski, Jessie Unavailable Unavailable Malys, Dillon Britney Unavailable Unavailable Kuchynski, Jessie Unavailable Unavailable Kuchynski, Jessie Unavailable Unavailable Malys, Dillon Britney Unavailable Unavailable Kuchynski, Jessie Unavailable Unavailable Kuchynski, Jessie Unavailable Unavailable Kuchynski, Jessie Unavailable Unavailable Malys, Dillon Britney Unavailable Unavailable Kuchynski, Jessie Unavailable Unavailable Kuchynski, Jessie Unavailable Unavailable Malys, Dillon Britney Unavailable Unavailable SANDERSON, BLUE Unavailable Unavailable IMCA Unavailable Unavailable IMCA Unavailable Unavailable SANDERSON, BLUE Unavailable Unavailable SANDERSON, BLUE Unavailable Unavailable IMCA Unavailable Unavailable SANDERSON, BLUE Unavailable Unavailable SANDERSON, BLUE Unavailable Unavailable IMCA Unavailable Unavailable SANDERSON, BLUE Unavailable Unavailable SANDERSON, BLUE Unavailable Unavailable IMCA Unavailable Unavailable GURAN, GERALDINE Unavailable Unavailable SANDERSON, BLUE Unavailable Unavailable [facility]CA Unavailable Unavailable GURAN, GERALDINE Unavailable Unavailable [facility]CA Unavailable Unavailable [facility] Unavailable Unavailable SANDERSON, BLUE Unavailable Unavailable SANDERSON, BLUE Unavailable Unavailable IMCA Unavailable Unavailable SANDERSON, BLUE Unavailable Unavailable SANDERSON, BLUE Unavailable Unavailable IMCA Unavailable Unavailable Dillon Norris DO A Primary Care Provider [phone] Mar Hoffman MD Unavailable Dillon Norris DO A Unavailable Rigoberto Romano RN Unavailable [phone] Rigoberto Romano RN Unavailable Mary Roberson MD Unavailable CHANCE ABDALLA Admitting Unavailable DILLON NORRIS Primary Care Unavailable MO COBURN Consulting Unavailable MAR HOFFMAN Attending Unavailable MALYS DO, DR DILLON Waters Primary Care Physician Yee Rounding Nurse, Jony Unavailable Amos Soto, Ginger S Unavailable Unavailable SOY MEZA, DINA Admitting Unavailjamison ABDULLAHI MD, LOU Consulting Unavailable MALYS DO, DR DILLON Waters Primary Care Unavailable ENRIKE MEZA, DR VINCENT Gama Attending Amos romeo HOSPITALIST, GEOVANNI Consulting Unavailable JORGE ALBERTO MEZA, KRISTY Consulting Unavailable GIOVANNA MEZA, JUAREZ Srivastava Consulting Unavailable AP MEZA, LAUREN Sanford Consulting Unavailjamison SHAIKH MD, PIERO Elias Consulting Unavailable MALYS DO, DR DILLON Waters Primary Care Unavailable MCKENZIE MEZA, DR LES Waters Admitting Unavailable MIRIAM MEZA, EMMY King Attending Unavailjamison LEGGETT MD, SHLOMO Zimmer Consulting Unavailable RHYS KAUR MD, DR ANIL SEBASTIAN Consulting Unavaila penelope VARGAS MD, GOLDIE Consulting Unavailable JAMES MEZA, Ph.D, LUCIUS Fonseca Consulting Unavaila ble BRITBACHERT , LUIS M Waters Consulting Enma sabas CUELLAR MD, DR ANIL SEBASTIAN Attending Unavaila ble MALYS DO, DR DILLON Waters Primary Care Unavailable RHYS KAUR MD, DR ANIL SEBASTIAN Attending Unavaila ble MALYS DO, DR DILLON Waters Primary Care Unavailable YARY ANDERSON Attending Unavailable YARY ANDERSON Admitting Unavailable DILLON NORRIS Primary Care Unavailable LETHA SANDHU Referring Unavailable LETHA SANDHU Referring Unavailab LETHA Guillen Referring Unavailable JR DILLON Evelin Primary Care Unavailable CHRISTIAN DESAI Attending Unavailable CHRISTIAN DESAI Admitting Unavailable Allergies Allergy Classification Reported Allergen(s) Allergy Type Date of Onset Reaction(s) Facility (20 sources) Diclofenac; Translations: [DICLOFENAC] Drug Allergy 07-12-[address] [facility] Repository (20 sources) Folic Acid; Translations: [FOLIC ACID] Drug Allergy 10-07-19 17 [facility] Repository (20 sources) Hydroxychloroquine; Translations: [HYDROXYCHLOROQUINE SULFATE] Drug Allergy 10-07-19 17 [facility] Repository (20 sources) Methotrexate; Translations: [METHOTREXATE] Drug Allergy 10-07-19 [facility] Repository (20 sources) Etanercept; Translations: [ETANERCEPT] Drug Allergy 04-14-20 [facility] (20 sources) Penicillins; Translations: [PENICILLINS] Drug Allergy 04-14-20 [facility] (20 sources) rivaroxaban; Translations: [RIVAROXABAN] Drug Allergy 04-14-20 [facility] (20 sources) Sulfonamides (Antibiotic); Translations: [SULFA (SULFONAMIDE ANTIBIOTICS)] Drug Allergy 08-16-19 [facility] (20 sources) Warfarin; Translations: [WARFARIN] Drug Allergy 04-14-20 [facility] (20 sources) levoFLOXacin; Translations: [levofloxacin] Drug Allergy 08-22-19 Other: See [facility] Work Phone: (3 sources) Adhesive Tape Allergy to substance [facility] (3 sources) ascorbic acid / cholecalciferol / ferrous sulfate / vitamin a; Translations: [multivitamin with iron] Drug Allergy [facility] (3 sources) Latex Allergy to substance [facility] (3 sources) Penicillin; Translations: [penicillin] Drug Allergy [facility] (2 sources) Azithromycin; Translations: [azithromycin] Drug Allergy itching [facility] (2 sources) buPROPion; Translations: [bupropion] Drug Allergy paranoia [facility] (2 sources) clonazePAM; Translations: [clonazepam] Drug Allergy [facility] (2 sources) clopidogrel; Translations: [clopidogrel] Drug Allergy [facility] (2 sources) DULoxetine; Translations: [duloxetine] Drug Allergy chest pain [facility] (2 sources) olmesartan; Translations: [olmesartan] Drug Allergy [facility] (2 sources) Sulfonamide; Translations: [sulfa drugs] Drug allergy [facility] (2 sources) venlafaxine; Translations: [venlafaxine] [facility] Red food dyes Food allergy [facility] (2 sources) Green dye (non-codified) Food allergy [facility] Medications Current Medications Medication Drug Class(es) Dates Sig (Normalized) Sig (Original) acetaminophen 325 mg oral capsule (2 sources) Start: 07-29-2023 take 1 capsule by mouth every four hours as needed Tylenol 325 mg oral capsule Dose : 650 mg =, Oral, q4h, PRN TEMP greater than 38.6 degrees Celsius, 0 Refill(s) Start Date: 07/29/23 Status: Ordered acetaminophen 325 mg / oxyCODONE hydrochloride 5 mg oral tablet (1 source) Opioid Agonist Start: 07-29-2023 End: 08-05-2023 take 1 tablet by mouth every six hours as needed for pain acetaminophen-ox yCODONE 325 mg-5 mg oral tablet Dose = 1 tab(s), Oral, q6h, PRN for pain, X 7 day(s), # 12 tab(s), 0 Refill(s), Pharmacy: [facility], Scrotal abscess, 185.4, cm, 07/23/23 8:23:00 EST, Height, 203.209, kg, 07/26/23 6:44:00 EST, Dosing Weight Start Date: 07/29/23 Stop Date: 08/05/23 Status: Ordered aspirin 81 mg chewable tablet (20 sources) Platelet Aggregation Inhibitor, Nonsteroidal Anti-inflammatory Drug Start: 07-01-2023 aspirin 81 mg oral tablet, chewable Dose : 81 mg = 1 tab(s), Oral, Daily, # 30 tab(s), 0 Refill(s), Pharmacy: [facility], 186, cm, 06/28/23 3:00:00 EST, Height, kg, 06/30/23 8:04:00 EST, Dosing Weight Start Date: 07/01/23 Status: Ordered take 1 tablet by mouth once dennis y aspirin, enteric coated (ASPIRIN, ENTERIC COATED) 81 mg EC tablet Take 81 mg by mouth once daily. 0 Active Comment on above: Take 81 mg by mouth once daily. atorvastatin 40 mg oral tablet (20 sources) HMG-CoA Reductase Inhibitor Start: 07-01-2023 Lipitor 40 mg oral tablet Dose : 40 mg = 1 tab(s), Oral, qDay, # 30 tab(s), 0 Refill(s), Pharmacy: [facility], 186, cm, 06/28/23 3:00:00 EST, Height, kg, 06/30/23 8:04:00 EST, Dosing Weight Start Date: 07/01/23 Status: Ordered take 1 tablet by mouth once dennis y atorvastatin (LIPITOR) 40 mg tablet Take 40 mg by mouth once daily. 0 Active Comment on above: Take 40 mg by mouth once daily. bumetanide 1 mg oral tablet (20 sources) Loop Diuretic Start: 07-02-2023 bumetanide 1 mg oral tablet Dose : 1 mg = 1 tab(s), Oral, Daily, # 30 tab(s), 7 Refill(s), Pharmacy: [facility], 186, cm, 06/28/23 3:00:00 EST, Height, kg, 06/30/23 8:04:00 EST, Dosing Weight Start Date: 07/02/23 Status: Ordered Start: 08-20-2022 take 1 tablet by bronson th once daily as needed bumetanide (BUMEX) 1 mg tablet Take 1 mg by mouth once daily as needed (swelling). 0 08/20/2022 Active Comment on above: [The details of the medication are not available because there are pending changes by a home health clinician.] Take 1 mg by mouth o nce daily as needed (swelling). cyclobenzaprine hydrochloride 10 mg oral tablet (2 sources) Muscle Relaxant Start: 07-27-2023 cyclobenzaprine 10 mg oral tablet Dose : 10 mg = 1 tab(s), Oral, TID, PRN for muscle spasm, 0 Refill(s) Start Date: 07/27/23 Status: Ordered D3-50 (50,000 units) oral capsule (2 sources) Start: 07-27-2023 D3-50 (50,000 units) oral capsule Dose : 1,250 mcg = 1 cap(s), Oral, 2X/week, 0 Refill(s) Start Date: 07/27/23 Status: Ordered dabigatran etexilate 150 mg oral capsule (20 sources) Start: 07-27-2023 Pradaxa 150 mg oral capsule Dose : 150 mg = 1 cap(s), Oral, BID, # 60 cap(s), 0 Refill(s), 203.209 Start Date: 07/27/23 Status: Ordered Start: 07-01-2023 Pradaxa 75 mg oral capsule Dose : 75 mg = 1 cap(s), Oral, BID, # 60 cap(s), 0 Refill(s), Pharmacy: [facility], 186, cm, 06/28/23 3:00:00 EST, Height, 196.2, kg, 06/30/23 8:04:00 EST, Dosing Weight Start Date: 07/01/23 Status: Ordered Start: 08-20-2022 take 1 capsule by mo ut twice daily dabigatran etexilate (PRADAXA) 150 mg cap Take 150 mg by mouth twice daily. 0 08/20/2022 Active Comment on above: Take by mouth twice daily. [The details of the medication are not available because there are pending changes by a home health clinician.] Take 150 mg by mouth twice daily. diclofenac sodium 0.01 mg/mg topical gel (2 sources) Nonsteroidal Anti-inflammatory Drug Start: 07-27-2023 diclofenac 1% topical gel 4 = gram(s), Topical, QID, # 1 EA, 0 Refill(s), Gel, 203.209 Start Date: 07/27/23 Status: Ordered fluticasone propionate 0.05 mg/actuat metered dose nasal spray (2 sources) Corticosteroid Start: 07-27-2023 fluticasone proprionate NASAL 50 mcg/ spray 100 mcg Dose = 2 spray(s), Nostril, each, qAM, 0 Refill(s) Start Date: 07/27/23 Status: Ordered furosemide 40 mg oral tablet (20 sources) Loop Diuretic Start: 07-01-2023 Lasix 40 mg oral tablet Dose : 40 mg = 1 tab(s), Oral, qDay, # 30 tab(s), 0 Refill(s), Pharmacy: [facility], 186, cm, 06/28/23 3:00:00 EST, Height, kg, 06/30/23 8:04:00 EST, Dosing Weight Start Date: 07/01/23 Status: Ordered Start: 09-12-2022 take 2 tablets by mo ut twice daily furosemide (LASIX) 20 mg tablet Take 40 mg by mouth twice daily. 0 09/12/2022 Active Start: 09-12-2022 take 2 tablets by mo ut once daily furosemide (LASIX) 20 mg tablet Take 40 mg by mouth once daily. 0 09/12/2022 Active Start: 08-20-2022 take 1 tablet by bronson th twice daily furosemide (LASIX) 20 mg tablet Take 20 mg by mouth twice daily. Take 2 tablets by mouth in the morning and 1 tablet by mouth at 1pm 0 08/20/2022 Discontinued (Other) Start: 08-20-2022 take 1 tablet by bronson th once daily furosemide (LASIX) 20 mg tablet Take 20 mg by mouth once daily. take at 1p 0 09/12/2022 Active Comment on above: Take 20 mg by mouth once daily. Take 2 in the morning and 1 at 1pm [The details of the medication are not available because there are pending changes by a home health clinician.] Take 40 mg by mouth once daily. Take 20 mg by mouth once daily. take at 1p Take 20 mg by mouth twice daily. Take 2 tablets by mouth in the morning and 1 tablet by mouth at 1pm Take 40 mg by mouth twice daily. glipiZIDE 2.5 mg oral tablet (20 sources) Sulfonylurea Start: 07-27-2023 glipizide 2.5 mg oral tablet Dose : 2.5 mg = 1 tab(s), Oral, BID, 30 minutes before breakfast, # 60 tab(s), 0 Refill(s) Start Date: 07/27/23 Status: Ordered take 1 tablet by mouth once dennis y glipiZIDE (GLUCOTROL XL) 2.5 mg 24 hr tablet Take 2.5 mg by mouth once daily. 0 Active Comment on above: Take 2.5 mg by mouth once daily. levothyroxine (20 sources) l-Thyroxine Start: 06-28-2023 levothyroxine 88 mcg (0.088 mg) oral tablet Dose : 88 mcg = 1 tab(s), Oral, qDay, 0 Refill(s) Start Date: 06/28/23 Status: Ordered Start: 06-28-2023 take 1 dose by mouth once dennis y levothyroxine 150 mcg (0.15 mg)/5 mL oral solution Dose : 150 mcg = 5 mL, Oral, qDay, on an empty stomach, # 75 mL, 0 Refill(s) Start Date: 06/28/23 Status: Ordered Start: 02-16-2023 Levothyroxine 150 mcg cap Take 300 mcg by mouth once daily. On Thursday only take 150MCG 0 02/16/2023 Active take 2 capsules by m outh once daily Levothyroxine 150 mcg cap Take 300 mcg by mouth once daily. 0 Active Comment on above: Take 300 mcg by mout h once daily. Take 300 mcg by mout h once daily. On Thursday only take 150MCG losartan potassium 25 mg oral tablet (20 sources) Angiotensin 2 Receptor Tejinder Start: 07-27-2023 losartan 25 mg oral tablet Dose : 25 mg = 1 tab(s), Oral, BID, 0 Refill(s) Start Date: 07/27/23 Status: Ordered take 1 tablet by mouth twice ange ly losartan (COZAAR) 25 mg tablet Take 25 mg by mouth twice daily. 0 Active Comment on above: Take 25 mg by mouth twice daily. 24 hr nicotine 0.583 mg/hr transdermal system (1 source) Cholinergic Nicotinic Agonist Start: 3 End: 4 apply 1 dose transdermal route every twenty-four hours Nicoderm CQ patch 14-7mg TAPER (Disch Rx) Dose = 1 patch(es), Transdermal, q24h, X 14 day(s), # 14 patch(es), 0 Refill(s), Pharmacy: [facility], 185.4, cm, 07/23/23 8:23:00 EST, Height, kg, 07/26/23 6:44:00 EST, Dosing Weight Start Date: 07/29/23 Stop Date: 08/12/23 Status: Ordered nystatin 100 unt/mg topical powder (20 sources) Polyene Antifungal Start: 3 nystatin 100,000 units/g topical powder Apply 1 leandro, Topical, BID, # 30 gram(s), 0 Refill(s), Powder, 203.209 Start Date: 07/27/23 Status: Ordered Start: 08-20-2022 nystatin (NYST OP) powder Apply 1 application to affected area twice daily. 0 08/20/2022 Active Comment on above: Apply 1 application to affected area twice daily. pantoprazole 20 mg delayed release oral tablet (4 sources) Proton Pump Inhibitor Start: 3 pantoprazole 20 mg oral enteric coated tablet Dose : 20 mg = 1 tab(s), Oral, BIDAC, 0 Refill(s) Start Date: 06/28/23 Status: Ordered polyethylene glycol 3350 89205 mg powder for oral solution (20 sources) Osmotic Laxative Start: take 17 doses by mouth three times daily polyethylene glycol 3350 oral powder for reconstitution Dose : 17 gram(s) =, Oral, TID, 0 Refill(s) Start Date: 07/27/23 Status: Ordered Start: 11-23-2019 polyethylene g lycol 3350 (MIRALAX) 17 gram/dose powder Indications: Constipation, unspecified constipation type Take 17 g by mouth once daily. 1 Bottle 11 11/23/2019 Active Comment on above: Take 17 g by mouth o nce daily. potassium chloride 10 meq oral tablet (2 sources) Start: 07-27-2023 Potassium Chloride (Eqv-K-Tab) 10 mEq oral tablet, extended release Dose : 10 mEq = 1 tab(s), Oral, BID, # 60 tab(s), 0 Refill(s) Start Date: 07/27/23 Status: Ordered prednisoLONE 10 mg disintegrating oral tablet (3 sources) Corticosteroid Start: 06-28-2023 prednisoLONE (as sodium phosphate) 10 mg oral tablet, disintegrating Dose : 10 mg = 1 tab(s), Oral, BID, # 7 tab(s), 0 Refill(s) Start Date: 06/28/23 Status: Ordered Vitamin C 500 mg oral tablet (2 sources) Start: 07-27-2023 Vitamin C 500 mg oral tablet Dose : 500 mg = 1 tab(s), Oral, qDay, # 30 tab(s), 0 Refill(s) Start Date: 07/27/23 Status: Ordered Completed/Discontinued Medications Medication Drug Class(es) Dates Sig (Normalized) Sig (Original) acetaminophen 325 mg / HYDROcodone bitartrate 5 mg oral tablet (20 sources) Opioid Agonist Start: 11-14-2022 take 1 tablet by mouth every six hours as needed HYDROcodone-aceta minophen (NORCO) 5-325 mg per tablet Take 1 tablet by mouth every 6 hours as needed for pain. 0 11/14/2022 Active Comment on above: Take 1 tablet by bronson th every 6 hours as needed for pain. [id number] 200 actuat albuterol 0.09 mg/actuat metered dose inhaler (20 sources) beta2-Adrenergic Agonist take 2 puff(s) by inhalation every six hours as needed for wheezing albuterol HFA (VENTOLIN HFA) 90 mcg/actuation inhaler Inhale 2 Puffs as instructed every 6 hours as needed for wheezing/shortnes s of breath. 0 Active Comment on above: Inhale 2 Puffs as in structed every 6 hours as needed for wheezing/shortness of breath. ascorbic acid 500 mg oral tablet (20 sources) Vitamin C take 1 tablet by mouth once daily ascorbic acid, vitamin C, (VITAMIN C) 500 mg tablet Take 500 mg by mouth once daily. 0 Active Comment on above: Take 500 mg by mouth once daily. benzonatate 100 mg oral capsule (20 sources) Non-narcotic Antitussive Start: 09-29-2022 take 1 capsule by mouth every twelve hours as needed benzonatate (TESSALON PERLES) 100 mg capsule Take 100 mg by mouth twice daily as needed for cough. 0 09/29/2022 Active Comment on above: Take 100 mg by mouth twice daily as needed for cough. cephalexin 500 mg oral capsule (13 sources) Cephalosporin Antibacterial Start: 03-30-2023 take 1 capsule by mouth three times daily cephALEXin (KEFLEX) 500 mg capsule Take 500 mg by mouth three times daily. 0 03/30/2023 Active Comment on above: Take 500 mg by mouth three times daily. clindamycin 300 mg oral capsule (18 sources) Lincosamide Antibacterial Start: 11-09-2022 take 1 capsule by mouth once clindamycin (CLEOCIN) 300 mg capsule Take 300 mg by mouth every [address] Darian Denny at [facility] 0 11/09/2022 Active Start: 11-09-2022 End: 11-19-2022 take 1 capsule by mouth four times daily clindamycin (CLEOCIN) 300 mg capsule Take 300 mg by mouth four times daily. 0 11/09/2022 11/19/2022 Active Comment on above: Take 300 mg by mouth every [address] Darian Denny at [facility] Take 300 mg by mouth four times daily. diazePAM 10 mg oral tablet (20 sources) Benzodiazepine Start: 07-27-2023 diazePAM 10 mg oral tablet Dose : 10 mg = 1 tab(s), Oral, QID, PRN as needed for anxiety, 0 Refill(s), 203.209 Start Date: 07/27/23 Status: Ordered take 1 tablet by bronson th every six hours as needed diazepam (VALIUM) 10 mg tablet Take 10 m g by mouth four times daily as needed for anxiety. 0 Active Comment on above: Take 10 mg by mouth four times daily as needed for anxiety. dicyclomine hydrochloride 20 mg oral tablet (20 sources) Anticholinergic Start: 09-21-19 take 1 tablet by mouth every six hours dicyclomine (BENTYL) 20 mg tablet take 1 tablet by mouth every 6 hours 120 tablet 1 09/21/2017 Active Comment on above: take 1 tablet by bronson th every 6 hours doxycycline hyclate 100 mg oral capsule (20 sources) Tetracycline-class Drug take 1 capsule by mouth twice daily doxycycline hyclate (VIBRAMYCIN) 100 mg capsule Take 100 mg by mouth twice daily. 0 Active Comment on above: Take 100 mg by mouth twice daily. ertapenem 1000 mg injection (2 sources) Penem Antibacterial Start: 07-29-20 End: 08-26-19 Invanz 1 g (Disch Rx) Dose : 1 gram(s) =, IV Piggyback, qDay, 0 Refill(s), 203.209 Start Date: 07/29/23 Stop Date: 08/26/23 Status: Ordered ferrous gluconate 324 mg oral tablet (13 sources) Start: 03-30-20 take 1 tablet by mouth twice daily ferrous gluconate 324 mg (37.5 mg iron) tablet Take 324 mg by mouth twice daily. 0 03/30/2023 Active Comment on above: Take 324 mg by mouth twice daily. fluconazole 200 mg oral tablet (17 sources) Azole Antifungal Start: 08-20-19 take 1 tablet by mouth once fluconazole (DIFLUCAN) 200 mg tablet Take 200 mg by mouth one time only. 0 08/20/2022 Active Comment on above: Take 200 mg by mouth one time only. fluticasone prp-sod.chl,bicarb 50 mcg- 0.9 % ksps (20 sources) Start: 08-20-19 fluticasone prp-sod.chl,bicarb 50 mcg- 0.9 % ksps Use 2 Sprays in the nose once daily as needed (allergy s/s). 0 08/20/2022 Active Comment on above: Use 2 Sprays in the nose once daily as needed (allergy s/s). gabapentin 100 mg oral capsule (20 sources) Anti-epileptic Agent Start: 07-27-20 gabapentin 100 mg oral capsule Dose : 200 mg = 2 cap(s), Oral, qAM, 0 Refill(s), 203.209 Start Date: 07/27/23 Status: Ordered Start: 08-20-2022 take 1 capsule by mo uth once daily at bedtime gabapentin (NEURONTIN) 100 mg capsule Take 100 mg by mouth daily at bedtime. 0 08/20/2022 Active take 3 capsules by m outh once daily at bedtime gabapentin (NEURONTIN) 100 mg capsule Take 300 mg by mouth daily at bedtime. 0 Active Comment on above: Take 300 mg by mouth daily at bedtime. [The details of the medication are not available because there are pending changes by a home health clinician.] Take 100 mg by mouth daily at bedtime. hydroCHLOROthiazide 25 mg / losartan potassium 100 mg oral tablet (20 sources) Thiazide Diuretic, Angiotensin 2 Receptor Tejinder take 1 tablet by mouth once daily losartan-hydrochloro thiazide (HYZAAR) 100-25 mg per tablet Take 1 tablet by mouth once daily. 0 Active Comment on above: Take 1 tablet by bronson th once daily. hydrocortisone 25 mg/ml topical cream (20 sources) Corticosteroid Start: 2016 hydrocortisone (ANUSOL-HC) 2.5 % rectal cream 1 application by RECTAL route four times daily as needed. 60 g 3 10/06/2016 Active Comment on above: 1 application by REC LEWIS route four times daily as needed. levoFLOXacin 750 mg oral tablet (6 sources) Quinolone Antimicrobial Start: 2022 End: 2022 levoFLOXacin (LEVAQUIN) 750 mg tablet [The details of the medication are not available because there are pending changes by a home health clinician.] 7 tablet 0 08/18/2022 08/25/2022 Start: 08-18-2022 End: 08-25-2022 take 1 tablet by mouth once daily levoFLOXacin (LEVAQUIN) 750 mg tablet Take 1 tablet by mouth once daily for 7 days. 7 tablet 0 08/18/2022 08/25/2022 Active Comment on above: Take 1 tablet by bronson th once daily for 7 days. [The details of the medication are not available because there are pending changes by a home health clinician.] yxvhnjtgy-sxwdxd-fegnggz ne HCl (PRIZOTRAL) 2.5-2.5-3.88 % cream (20 sources) Start: 08-20-2022 rhenhdend-pqaanw-axpvyt ine HCl (PRIZOTRAL) 2.5-2.5-3.88 % cream Apply 1 Each to affected area once daily. apply topically with wound care 0 08/20/2022 Active Comment on above: Apply 1 Each to affe cted area once daily. apply topically with wound care 24 hr metoprolol succinate 25 mg extended release oral tablet (20 sources) beta-Adrenergic Tejinder Start: 07-29-2023 End: 07-29-2023 metoprolol succinate 25 mg oral TABLET extended release Start: 07/29/23 8:00:00 AM EST, Dose = 12.5 mg, = 0.5 tab(s), Oral, 0, 07/23/23 4:22:00 EST Start Date: 07/29/23 Stop Date: 07/29/23 Status: Completed Start: 07-28-2023 End: 07-28-2023 metoprolol succinate 25 mg o ral TABLET extended release Start: 07/28/23 10:00:00 PM EST, Dose = 12.5 mg, = 0.5 tab(s), Oral, 0, 07/23/23 4:22:00 EST Start Date: 07/28/23 Stop Date: 07/28/23 Status: Completed Start: 07-28-2023 End: 07-28-2023 metoprolol succinate 25 mg o ral TABLET extended release Start: 07/28/23 8:00:00 AM EST, Dose = 12.5 mg, = 0.5 tab(s), Oral, 0, 07/23/23 4:22:00 EST Start Date: 07/28/23 Stop Date: 07/28/23 Status: Completed Start: 07-01-2023 metoprolol suc cinate 25 mg oral TABLET extended release Dose : 12.5 mg = 0.5 tab(s), Oral, BID, Do not crush or chew (controlled release), # 30 tab(s), 0 Refill(s), Pharmacy: [facility], 186, cm, 06/28/23 3:00:00 EST, Height, kg, 06/30/23 8:04:00 EST, Dosing Weight Start Date: 07/01/23 Status: Ordered Start: 07-01-2023 End: 07-02-2023 metoprolol succinate 25 mg o ral TABLET extended release Start: 07/02/23 8:00:00 AM EST, Dose = 12.5 mg, = 0.5 tab(s), Oral, 0, 06/29/23 19:32:00 EST Start Date: 07/02/23 Stop Date: 07/02/23 Status: Completed Start: 11-20-2022 metoprolol tar trate, short acting, (LOPRESSOR) 25 mg tablet Take 50 mg by mouth twice daily. 0 11/20/2022 Active Start: 08-18-2022 End: 09-17-2022 take 1 tablet by mouth every twelve hours metoprolol tartrate, short acting, (LOPRESSOR) 25 mg tablet Take 1 tablet by mouth every 12 hours. 60 tablet 0 08/18/2022 Active Comment on above: Take 1 tablet by bronson th every 12 hours. Take 50 mg by mouth twice daily. metroNIDAZOLE 500 mg oral tablet (6 sources) Nitroimidazole Antimicrobial Start: 08-18-19 End: 08-25-19 take 1 tablet by mouth three times daily metroNIDAZOLE (FLAGYL) 500 mg tablet Take 1 tablet by mouth three times daily for 7 days. 21 tablet 0 08/18/2022 08/25/2022 Comment on above: Take 1 tablet by bronson th three times daily for 7 days. Miscellaneous Medical Supply (14 sources) Start: 08-18-19 End: 09-17-19 Miscellaneous Medical Supply Indications: Perianal abscess 1 Each once daily. Wound care supplies: loaf of 4x4 gauze, 30 5x9 inch abdominal pads. Wound measurement: 1x2.5x3.5 to perianal area at left side. Small to moderate drainage. 30 Each 1 08/18/2022 09/17/2022 Start: 08-18-2022 End: 09-17-2022 Miscellaneous Medical Supply Indications: Perianal abscess 1 Each once daily. Wound care supplies: loaf of 4x4 gauze, 30 5x9 inch abdominal pads. Wound measurement: 1x2.5x3.5 to perianal area at left side. Small to moderate drainage. 30 Each 1 08/18/2022 09/17/2022 Active Comment on above: 1 Each once daily. W ound care supplies: loaf of 4x4 gauze, 30 5x9 inch abdominal pads. Wound measurement: 1x2.5x3.5 to perianal area at left side. Small to moderate drainage. omeprazole 20 mg delayed release oral capsule (20 sources) Proton Pump Inhibitor Start: 11-24-2022 omeprazole (PRILOSEC) 20 mg capsule [The details of the medication are not available because there are pending changes by a home health clinician.] 0 11/24/2022 Active Start: 04-21-2017 take 2 capsules by m outh once daily omeprazole (PRILOSEC) 20 mg capsule take 2 capsules by mouth once daily 60 capsule 11 04/21/2017 Active take 1 capsule by mo uth twice daily omeprazole (PRILOSEC) 20 mg capsule Take 20 mg by mouth twice daily. 0 Active Comment on above: take 2 capsules by m outh once daily Take 20 mg by mouth twice daily. [The details of the medication are not available because there are pending changes by a home health clinician.] oxyCODONE hydrochloride 5 mg oral tablet (20 sources) Opioid Agonist Start: take 5 mg by mouth every eight hours as needed oxycodone HCl (OXYCODONE ORAL) Take 5 mg by mouth three times daily as needed (pain). 0 08/20/2022 Active Start: 08-20-2022 take 5 mg by mouth e very eight hours as needed oxycodone HCl (OXYCODONE ORAL) [The details of the medication are not available because there are pending changes by a home health clinician.] 0 08/20/2022 Active Comment on above: Take 5 mg by mouth t hree times daily as needed. [The details of the medication are not available because there are pending changes by a home health clinician.] Take 5 mg by mouth t hree times daily as needed (pain). OXYGEN, HOME THERAPY, (20 sources) Start: 08-20-2022 OXYGEN, HOME THERAPY, 4 L/min by Nasal Cannula route continuous. 0 08/20/2022 Active Start: 08-20-2022 OXYGEN, HOME T HERAPY, [The details of the medication are not available because there are pending changes by a home health clinician.] 0 08/20/2022 Active Start: 08-20-2022 OXYGEN, HOME T HERAPY, 2 L/min by Nasal Cannula route continuous. 0 08/20/2022 Active Comment on above: 2 L/min by Nasal Can nula route continuous. [The details of the medication are not available because there are pending changes by a home health clinician.] 4 L/min by Nasal Can nula route continuous. predniSONE 5 mg oral tablet (20 sources) Start: 05-21-2018 predniSONE (DELTASONE) 5 mg tablet [The details of the medication are not available because there are pending changes by a home health clinician.] 90 tablet 1 05/21/2018 Active Start: 05-21-2018 predniSONE (DE LTASONE) 5 mg tablet 17.5 mg daily for 2 week, continue taper by 2.5 mg every 2 weeks. 90 tablet 1 05/21/2018 Active Comment on above: 17.5 mg daily for 2 week, continue taper by 2.5 mg every 2 weeks. [The details of the medication are not available because there are pending changes by a home health clinician.] silver sulfADIAZINE 10 mg/ml topical cream (2 sources) Sulfonamide Antibacterial Start: 07-27-20 Silvadene 1% topical cream Apply 1 leandro, Topical, BID, 0 Refill(s), 203.209 Start Date: 07/27/23 Status: Ordered Sodium Chloride (2 sources) Start: 07-27-20 saline nasal 0.65% solution Dose = 2 spray(s), Nostril, each, AsDirected, PRN dry nasal passage, 0 Refill(s) Start Date: 07/27/23 Status: Ordered sulfamethoxazole 400 mg / trimethoprim 80 mg oral tablet (20 sources) Dihydrofolate Reductase Inhibitor Antibacterial, Sulfonamide Antimicrobial Start: 12-19-19 take 1 tablet by mouth once daily sulfamethoxazole- trimethoprim (BACTRIM) 400-80 mg per tablet Take 1 tablet by mouth once daily. 0 12/18/2022 Active Start: 12-18-2022 take 1 tablet by [facility] twice daily sulfamethoxazole-trimethoprim (BACTRIM) 400-80 mg per tablet Take 1 tablet by mouth twice daily. 0 12/18/2022 Active Comment on above: Take 1 tablet by bronson th twice daily. Take 1 tablet by bronson th once daily. tamsulosin hydrochloride 0.4 mg oral capsule (20 sources) alpha-Adrenergic Tejinder take 0.4 mg by mouth once daily tamsulosin ER (FLOMAX) 0.4 mg cp24 Take 0.4 mg by mouth once daily. 0 Active Comment on above: Take 0.4 mg by mouth once daily. ticagrelor 90 mg oral tablet (20 sources) take 1 tablet by mouth twice daily ticagrelor (BRILINTA) 90 mg tablet Take 90 mg by mouth twice daily. 0 Active Comment on above: Take 90 mg by mouth twice daily. triamcinolone acetonide 0.25 mg/ml topical cream (2 sources) Corticosteroid Start: 07-27-20 End: 08-10-19 triamcinolone 0.025% topical cream Apply 1 leandro, Topical, TID, # 15 gram(s), 0 Refill(s), Cream, 203.209 Start Date: 07/27/23 Stop Date: 08/10/23 Status: Ordered vitamin b12 1 mg/ml injectable solution (20 sources) Vitamin B12 cyanocobalamin, vitamin B-12, 1,000 mcg/mL kit by INJECTION(UNSPECIFIE D PARENTERAL ROUTES) route. 0 Active cyanocobalamin ( VITAMIN B-12) 500 mcg tablet Take by mouth once daily. 0 Active Comment on above: by INJECTION(UNSPECIFIED PARENTERAL ROUT ES) route. Take by mouth once d aily. zinc acetate 50 mg oral capsule (20 sources) Start: take 1 capsule by mouth once daily Zinc Acetate, Oral, 50 mg (zinc) cap Take 1 capsule by mouth once daily. 0 02/11/2023 Active Comment on above: Take 1 capsule by mouth once daily. Problems Active Problems Problem Classification Problem Date Documented Da te Episodic/Chronic Anxiety disorders (20 sources) Panic attack; Translations: [Panic disorder [episodic paroxysmal anxiety]] 11-07-2015 Chronic Chronic obstructive pulmonary disease and bronchiectasis (2 sources) Chronic obstructive lung disease; Translations: [Chronic obstructive pulmonary disease, unspecified] Chronic Conduction disorders (3 sources) Complete atrioventricular block; Translations: [Atrioventricular block, complete] Chronic Coronary atherosclerosis and other heart disease (2 sources) Coronary atherosclerosis; Translations: [Atherosclerotic heart disease of [place] coronary artery without angina pectoris] Chronic Deficiency and other anemia (1 source) Anemia; Translations: [Anemia, unspecified] Episodic Diabetes mellitus with complications (1 source) Renal disorder due to type 2 diabetes mellitus; Translations: [Type 2 diabetes mellitus with diabetic nephropathy] Chronic Diseases of white blood cells (1 source) Leukocytosis; Translations: [Elevated white blood cell count, unspecified] Chronic Disorders of lipid metabolism (20 sources) Hypercholesterolemia; Translations: [Pure hypercholesterolemia, unspecified] 11-07-2015 Chronic Esophageal disorders (1 source) Gastroesophageal reflux disease without esophagitis; Translations: [Gastro-esophageal reflux disease without esophagitis] Chronic Essential hypertension (1 source) Essential hypertension; Translations: [Essential (primary) hypertension] Chronic Fluid and electrolyte disorders (1 source) Acidosis; Translations: [Acidosis, unspecified] Episodic Gastroduodenal ulcer (except hemorrhage) (20 sources) Gastric ulcer; Translations: [Gastric ulcer, unspecified as acute or chronic, without hemorrhage or perforation] 11-07-2015 Chronic Inflammatory conditions of male genital organs (3 sources) Inflammation of scrotum; Translations: [Inflammatory disorders of scrotum] Onset: 3 Episodic Mood disorders (20 sources) Depressive disorder; Translations: [Depression] 11-07-2015 Chronic Other diseases of bladder and urethra (20 sources) Overactive bladder; Translations: [Overactive bladder] 11-07-2015 Chronic Other endocrine disorders (20 sources) Hypoglycemic syndrome; Translations: [Hypoglycemia, unspecified] 11-07-2015 Chronic Other gastrointestinal disorders (20 sources) Constipation; Translations: [Constipation, unspecified] 11-07-2015 Episodic Other male genital disorders (1 source) Disorder of male genital organ; Translations: [Other specified disorders of the male genital organs] Onset: 3 Episodic Other male genital disorders (1 source) Pain in scrotum ; Translations: [Scrotal pain] Episodic Other male genital disorders (2 sources) Swelling of scrotum 07-23-2023 Episodic Other non-traumatic joint disorders (20 sources) Hip pain; Translations: [Pain in unspecified hip] 11-07-2015 Episodic Other non-traumatic joint disorders (20 sources) Disorder of hip joint; Translations: [Joint disorder, unspecified] 11-07-2015 Episodic Other nutritional; endocrine; and metabolic disorders (20 sources) Obesity; Translations: [Obesity, unspecified] Onset: 8 07-05-2018 Chronic Other nutritional; endocrine; and metabolic disorders (20 sources) Body mass index 40+ - severely obese; Translations: [Morbid (severe) obesity due to excess calories] Onset: 3 08-18-2022 Chronic Other nutritional; endocrine; and metabolic disorders (1 source) Extreme obesity with alveolar hypoventilation; Translations: [Morbid (severe) obesity with alveolar hypoventilation] Chronic Other nutritional; endocrine; and metabolic disorders (1 source) Morbid obesity; Translations: [Morbid (severe) obesity due to excess calories] Chronic Other screening for suspected conditions (not mental disorders or infectious disease) (1 source) Blood chemistry abnormal; Translations: [Other specified abnormal findings of blood chemistry] Episodic Phlebitis; thrombophlebitis and thromboembolism (1 source) Chronic deep venous thrombosis of popliteal vein of right leg; Translations: [Chronic embolism and thrombosis of right popliteal vein] Chronic Phlebitis; thrombophlebitis and thromboembolism (2 sources) History of thromboembolism of vein; Translations: [Personal history of other venous thrombosis and embolism] Episodic Pleurisy; pneumothorax; pulmonary collapse (1 source) Atelectasis; Translations: [Atelectasis] Episodic Pulmonary heart disease (1 source) Cor pulmonale; Translations: [Cor pulmonale (chronic)] Chronic Residual codes; unclassified (2 sources) Obstructive sleep apnea syndrome; Translations: [Obstructive sleep apnea (adult) (pediatric)] Chronic Residual codes; unclassified (1 source) Tobacco user; Translations: [Tobacco use] Episodic Residual codes; unclassified (1 source) Edema; Translations: [Edema, unspecified] Episodic Respiratory failure; insufficiency; arrest (adult) (4 sources) [id number] respiratory failure; Translations: [Acute and chronic respiratory failure with hypercapnia] Chronic Rheumatoid arthritis and related disease (2 sources) Rheumatoid arthritis; Translations: [Rheumatoid arthritis, unspecified] Chronic Skin and subcutaneous tissue infections (4 sources) Abscess of groin; Translations: [Cutaneous abscess of groin] Onset: 3 Episodic Substance-related disorders (20 sources) Nicotine dependence; Translations: [Nicotine dependence, unspecified, uncomplicated] Onset: 3 08-18-2022 Chronic Syncope (1 source) Syncope and collapse; Translations: [Syncope and collapse] Episodic Thyroid disorders (2 sources) Hypothyroidism; Translations: [Hypothyroidism, unspecified] Chronic Unclassified (1 source) Encounter for antineoplastic immunotherapy / Z51.12(ICD-10) Onset: 8 Unclassified (1 source) Rheumatoid arthritis, unspecified / M06.9(ICD-10) Onset: 8 Unclassified (1 source) Unknown / UNK(Unknown) Onset: 6 Past or Other Problems Problem Classification Problem Date Documented Da te Episodic/Chronic Anal and rectal conditions (20 sources) Perianal abscess; Translations: [Anal abscess] Onset: 08-16-2022 08-18-2022 Episodic Pneumonia (except that caused by tuberculosis or sexually transmitted disease) (1 source) Pneumonia, unspecified organism; Translations: [Pneumonia due to infectious organism, unspecified laterality, unspecified part of lung] Onset: 08-16-2022 Episodic Unclassified (1 source) Pain in right hip Onset: 06-14-2018 Unclassified (1 source) 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 Results Test Name Value Interpretation Reference Range Facility Bacteria Bld Culton 11-23-19 24 Bacteria identified Cx Nom (Bld) CULTURE, BLOOD: No growth 5 days Normal [facility] Comment on above: Performed By: #### 6 00-7 ####[facility] LABCLIA [id number] [place] [address] [place] Basic metabolic 2000 panelon 11-23-2023 Anion gap [Moles/Vol] 13 mmol/L Normal 9-18 [facility] Comment on above: Order Comment: Speci men Type: BLOOD SPECIMENOrdering Facility: [facility] Address: [address] [place] [address] Performed By: #### 2 4321-2 ####[facility] LABCLIA [id number] [place] [address] [place] Calcium [Mass/Vol] 8.3 mg/dL Low 8.5-10.2 [facility] Comment on above: Order Comment: Speci men Type: BLOOD SPECIMENOrdering Facility: [facility] Address: [address] [place] [address] Performed By: #### 2 4321-2 ####[facility] LABCLIA [id number] [place] [address] [place] Chloride [Moles/Vol] 99 mmol/L Normal 97-105 [facility] Comment on above: Order Comment: Speci men Type: BLOOD SPECIMENOrdering Facility: [facility] Address: [address] [place] [address] Performed By: #### 2 4321-2 ####[facility] LABCLIA [id number] [place] [address] [place] CO2 [Moles/Vol] 29 mmol/L Normal 22-30 [facility] Comment on above: Order Comment: Speci men Type: BLOOD SPECIMENOrdering Facility: [facility] Address: [address] [place] [address] Performed By: #### 2 4321-2 ####[facility] LABCLIA [id number] [place] [address] [place] Creatinine [Mass/Vol] 2.13 mg/dL High 0.73-1.22 [facility] Comment on above: Order Comment: Speci men Type: BLOOD SPECIMENOrdering Facility: [facility] Address: [address] [place], [place] [id number] Performed By: #### 2 4321-2 ####[facility] LABCLIA [id number] [place] [address] [place] Creatinine and Glomerular filtration rate.predicted panel (S/P/Bld) 36 mL/min/1.73m??? Low >=60 [facility] Comment on above: Order Comment: Sreekanth ludwig Type: BLOOD SPECIMENOrdering Facility: [facility] Address: [address] [place] [address] Result Comment: Ashley mated Glomerular Filtration Rate (eGFR) is calculated using the 2020 CKD-EPI creatinine equation. This equation utilizes serum creatinine, sex, and age as parameters. The creatinine assay has traceable calibration to isotope dilution-mass spectrometry. Refer to KDIGO guidelines for clinical interpretation. In patients with unstable renal function, e.g. those with acute kidney injury, the eGFR may not accurately reflect actual GFR. Performed By: #### 2 4321-2 ####[facility] LABIA [id number] [place] [address] [place] Glucose [Mass/Vol] 120 mg/dL High 74-99 [facility] Comment on above: Order Comment: Sreekanth ludwig Type: BLOOD SPECIMENOrdering Facility: [facility] Address: [address] [place] [address] Result Comment: The [place] Diabetes [employer] (ADA) provides guidance for cutoff values for fasting glucose and random glucose. The ADA defines fasting as no caloric intake for at least 8 hours. Fasting plasma glucose results between 100 to 125 mg/dL indicate increased risk for diabetes (prediabetes). Fasting plasma glucose results greater than or equal to 126 mg/dL meet the criteria for diagnosis of diabetes. In the absence of unequivocal hyperglycemia, results should be confirmed by repeat testing. In a patient with classic symptoms of hyperglycemia or hyperglycemic crisis, random plasma glucose results greater than or equal to 200 mg/dL meet the criteria for diagnosis of diabetes. Reference: Standards of Medical Care in Diabetes 2016, [place] [employer]. Diabetes Care. 2016.39(Suppl 1). Performed By: #### 2 4321-2 ####[facility] LABIA [id number] [place] [address] [place] Potassium [Moles/Vol] 3.6 mmol/L Low 3.7-5.1 [facility] Comment on above: Order Comment: Sreekanth ludwig Type: BLOOD SPECIMENOrdering Facility: [facility] Address: [address] [place] [address] Performed By: #### 2 4321-2 ####[facility] LABCLIA [id number] [place] [address] [place] Sodium [Moles/Vol] 141 mmol/L Normal 136-144 [facility] Comment on above: Order Comment: Speci men Type: BLOOD SPECIMENOrdering Facility: [facility] Address: [address] [place] [address] Performed By: #### 2 4321-2 ####[facility] LABCLIA [id number] [place] [address] [place] Urea nitrogen [Mass/Vol] 11 mg/dL Normal 9-24 [facility] Comment on above: Order Comment: Speci men Type: BLOOD SPECIMENOrdering Facility: [facility] Address: [address] [place] [address] Performed By: #### 2 4321-2 ####[facility] LABCLIA [id number] [place] [address] [place] CBC panel Auto (Bld)on 11-22 Erythrocyte distribution width (RBC) [Ratio] 17.3 % High 11.5-15.0 [facility] Comment on above: Order Comment: Speci men Type: BLOOD SPECIMENOrdering Facility: [facility] Address: [address] [place] [address] Performed By: #### 5 8410-2 ####[facility] LABIA [id number] [place] [address] [place] Hematocrit (Bld) [Volume fraction] 32.4 % Low 39.0-51.0 [facility] Comment on above: Order Comment: Speci men Type: BLOOD SPECIMENOrdering Facility: [facility] Address: [address] [place] [address] Performed By: #### 5 8410-2 ####[facility] LABCLIA [id number] [id number] [address] [place] Hemoglobin (Bld) [Mass/Vol] 9.5 g/dL Low 13.0-17.0 [facility] Comment on above: Order Comment: Speci men Type: BLOOD SPECIMENOrdering Facility: [facility] Address: [address] [place] [address] Performed By: #### 5 8410-2 ####[facility] LABCLIA [id number] [place] [address] [place] MCH (RBC) [Entitic mass] 25.3 pg Low 26.0-34.0 [facility] Comment on above: Order Comment: Speci men Type: BLOOD SPECIMENOrdering Facility: [facility] Address: [address] [place] [address] Performed By: #### 5 8410-2 ####[facility] LABCLIA [id number] [place] [address] [place] MCHC (RBC) [Mass/Vol] 29.3 g/dL Low 30.5-36.0 [facility] Comment on above: Order Comment: Speci men Type: BLOOD SPECIMENOrdering Facility: [facility] Address: [address] [place] [address] Performed By: #### 5 8410-2 ####[facility] LABIA [id number] [place] [address] [place] MCV (RBC) [Entitic vol] 86.4 fL Normal 80.0-100.0 [facility] Comment on above: Order Comment: Speci men Type: BLOOD SPECIMENOrdering Facility: [facility] Address: [address] [place] [address] Performed By: #### 5 8410-2 ####[facility] LABCLIA [id number] [place] [address] [place] Nucleated RBC (Bld) [#/Vol] 10*3/uL Normal <0.01 [facility] Comment on above: Order Comment: Speci men Type: BLOOD SPECIMENOrdering Facility: [facility] Address: [address] [place] [address] Performed By: #### 5 8410-2 ####[facility] LABIA [id number] [place] [address] [place] Platelet mean volume (Bld) [Entitic vol] 9.1 fL Normal 9.0-12.7 [facility] Comment on above: Order Comment: Speci men Type: BLOOD SPECIMENOrdering Facility: [facility] Address: [address] [place] [address] Performed By: #### 5 8410-2 ####[facility] LABIA [id number] [place] [address] [place] Platelets (Bld) [#/Vol] 260 10*3/uL Normal 150-400 [facility] Comment on above: Order Comment: Speci men Type: BLOOD SPECIMENOrdering Facility: [facility] Address: [address] [place] [address] Performed By: #### 5 8410-2 ####[facility] LABIA [id number] [place] [address] [place] RBC (Bld) [#/Vol] 3.75 10*6/uL Low 4.20-6.00 [facility] Comment on above: Order Comment: Speci men Type: BLOOD SPECIMENOrdering Facility: [facility] Address: [address] [place] [address] Performed By: #### 5 8410-2 ####[facility] LABIA [id number] [place] [address] [place] WBC (Bld) [#/Vol] 10.69 10*3/uL Normal 3.70-11.00 [facility] Comment on above: Order Comment: Speci men Type: BLOOD SPECIMENOrdering Facility: [facility] Address: [address] [place] [address] Performed By: #### 5 8410-2 ####[facility] LABCLIA [id number] [place] [address] [place] CONSULT PROGomaximiliano 11-23-2023 CONSULT PROG HNO ID: [id number] Author: ANITHA HINTON RPh Service: Pharmacy Author Type: Pharmacist Type: Consult Progress Note Filed: 11/23/2023 12:06 Note Text: PHARMACY VANCOMYCIN DOSING NOTE Patient Name: Cayla Granados Admission Date: 11/21/2023 Date of Consult: 11/23/2023 Time of Consult: 11:56 AM Indication: Skin/Soft tissue infection Goal Range: 15-20 mcg/mL RECOMMENDATIONS/PLAN: Pharmacy consulted for vancomycin dosing for Cayla Granados, a 53 year old male. 1. Patient is currently ordered Vancomycin 1500 mg IV once. Today is day 5 of therapy. Patient was transferred from [facility] on vancomycin, which started on 11/19/23. The vancomycin dose was started at 1750 mg BID x 2 doses, then given 1500 [facility] [facility]). 2. The most recent vancomycin level was 26.8 mcg/mL drawn at 0907 on 11/22. This is a 17 hour level on the 5th day of therapy. A 24 hour trough would likely be in goal range after the 1500 mg dose. 3. Serum creatinine and/or urine output have changed in the previous days, therefore will empirically change dose to 1500 mg Q24. 4. The next vancomycin level will be ordered for 11/26/23 unless clinically indicated sooner. (Pharmacy will order) We will follow patient renal function, vancomycin levels and doses with you during the course of therapy. Additional recommendations will appear in follow up notes. If you have any questions, please contact Anitha Hinton Rph at [phone] Age: [age] year old Allergies: ALLERGIES Allergen Reactions Diclofenac Hives Etanercept Swelling Folic Acid GI Upset dizzy/light headed Levofloxacin Other: See Comments abdominal pain and cramping, stiffness in neck Methotrexate GI Upset dizzy, light headed, diarrhea/vomiting Penicillins Hives Tolerated Unasyn and Zosyn at [facility] (11/2023) Plaquenil [Hydroxyc* GI Upset dizzy/light headed Rivaroxaban GI Upset Sulfa (Sulfonamide * Hives Warfarin GI Upset Last 3 Encounter Wt Readings: Date: Wt: 11/18/2023 216.9 kg (478 lb 2.8 oz) 05/16/2023 195 kg (430 lb) 05/05/2023 203.7 kg (449 lb) Last 1 Encounter Ht Readings: Date: Ht: 11/18/2023 185.4 cm (6' 1 ) CrCl: 75 mL/min Temp (24hrs), Av.6 ?C (97.8 ?F), Min:36.4 ?C (97.5 ?F), Max:36.7 ?C (98 ?F) - Current Temp: 36.5 ?C (97.7 ?F) Labs BUN (mg/dL) Date Value 11/23/2023 11 11/22/2023 13 11/21/2023 10 Creatinine (mg/dL) Date Value 11/23/2023 2.13 (H) 11/22/2023 1.63 (H) 11/21/2023 1.18 WBC (k/uL) Date Value 11/23/2023 10.69 11/22/2023 9.23 11/21/2023 11.39 (H) Vancomycin Levels: Vancomycin (ug/mL) Date/Time Value 11/23/2023 0907 26.8 (H) 11/21/2023 0628 23.1 (H) Anitha Hinton, NathanD, BCPS Solid Organ Transplant and Internal Medicine Clinical [employer] Phone: [phone] [facility] CONSULT PROG HNO ID: [id number] Author: ARVIN KINNEY MD Service: Infectious Disease Author Type: Physician Type: Consult Progress Note Filed: 11/23/2023 13:48 Note Text: INFECTIOUS DISEASE CONSULT SERVICE PROGRESS NOTE Patient Name: Cayla Granados Interval Events: Course reviewed Scrotal pain feels better No new symptoms Plans being formulated for transition to a skilled facility In addition to those reviewed and documented in the HPI all other systems reviewed and were negative. MEDICATIONS Medications reviewed. Current Facility-Administered Medications Medication Dose Route Frequency gabapentin 100 mg cap(s) (NEURONTIN) 100 mg ORAL AT BEDTIME atorvastatin 40 mg tab(s) (LIPITOR) 40 mg ORAL DAILY tamsulosin 0.4 mg cap(s) (FLOMAX) 0.4 mg ORAL DAILY albuterol HFA 90 mcg/actuation 2 Puff (PROVENTIL HFA, VENTOLIN HFA) 2 Puff INHALATION q 6 H PRN metoprolol tartrate (short acting) 50 mg tab(s) (LOPRESSOR) 50 mg ORAL BID furosemide 40 mg tab(s) (LASIX) 40 mg ORAL BID 9a/5p aspirin, enteric coated 81 mg tab(s) 81 mg ORAL DAILY docusate sodium 100 mg cap(s) (COLACE) 100 mg ORAL BID NaCl 0.9% iv flush bag 20 mL INTRAVENOUS PRN lactated ringers iv infusion 125 mL/hr INTRAVENOUS CONTINUOUS acetaminophen 1,000 mg tab(s) (TYLENOL) 1,000 mg ORAL q 6 H oxyCODONE IR 5 mg tab(s) (ROXICODONE) 5 mg ORAL q 6 H PRN HYDROmorphone 0.2 mg injection (DILAUDID) 0.2 mg INTRAVENOUS q 2 H PRN ondansetron (PF) 4 mg injection (ZOFRAN) 4 mg INTRAVENOUS q 6 H PRN melatonin 6 mg tab(s) 6 mg ORAL DAILY (8 PM) phenol 1 Frost (CHLORASEPTIC) 1 Frost MUCOUS MEMBRANE (TOPICAL MOUTH AND THROAT) q 2 H PRN simethicone, chewable 80 mg tab(s) (MYLICON) 80 mg ORAL q 8 H PRN heparin 7,500 Units injection 7,500 Units SUBCUTANEOUS q 8 H vancomycin dosing and monitoring per pharmacy OTHER As Directed pantoprazole DR 40 mg tab(s) (PROTONIX) 40 mg ORAL DAILY (6 AM) losartan 25 mg tab(s) (COZAAR) 25 mg ORAL DAILY levothyroxine (SYNTHROID) tab(s) 238 mcg 238 mcg ORAL DAILY (6 AM) piperacillin-tazobactam iv piggyback 3.375 g in dextrose (iso-osmotic) 50 mL (ZOSYN) 3.375 g INTRAVENOUS q 6 H dextrose 15 gram/32 mL 15 g (TRUEPLUS) 15 g ORAL PRN Or glucagon 1 mg injection 1 mg INTRAMUSCULAR PRN Or dextrose 10% iv bolus 12.5 g INTRAVENOUS PRN insulin lispro injection (rapid acting) (ADMElog) SUBCUTANEOUS w MEALS diazePAM 10 mg tab(s) (VALIUM) 10 mg ORAL BID PRN Examination: BP 105/50 Pulse 92 Temp 36.7 ?C (98.1 ?F) (Oral) Resp 14 Ht 185.4 cm (6' 1 ) Wt (!) 216.9 kg (478 lb 2.8 oz) SpO2 93% BMI 63.09 kg/m? Temp (24hrs), Av.7 ?C (98 ?F), Min:36.5 ?C (97.7 ?F), Max:36.8 ?C (98.2 ?F) General appearance: Resting in bed, nontoxic-appearing, obese Skin: No rash Head: Negative Eyes: Anicteric Oropharynx: No thrush Neck: Negative Back: not examined Lungs: Bilateral breath sounds anteriorly Heart: Tones distant, regular Abdomen: Obese, no mass Extremities: No significant pitting edema but very full legs Musculoskeletal: Negative Peripheral pulses: Radial pulses palpable Neuro: Grossly nonfocal CVC in the right IJ Scrotum-induration in the right scrotum appears to have decreased, no crepitus, less pain to palpation, I cannot appreciate a discrete abscess. There does appear to be some dependent rubor type changes in the scrotum. Exam unchanged as compared with 11/21 other than as edited above. Lab, Microbiology and Imaging Data: Personally reviewed imaging studies, laboratory results, and microbiology results. 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 Nontoxic on evaluation. At the bedside there does not appear to be obvious signs of a necrotizing/synergistic gangrene process. We have no microbiology from the outside hospital stays at this point. He is afebrile without leukocytosis. Notable aspects of his workup here thus far has included: 1 blood culture 11/20-pending He seems to be improving. White blood cell count is normalized. There is an SARAH -uncertain etiology. Did have a contrasted CT scan on 08/16 but current bump in creatinine seems a bit remote from that dye exposure. RECOMMENDATIONS: Stop vancomycin Continue Zosyn 3.375 g IV every 6 hours while in the hospital. At time of discharge- Bactrim DS 1 p.o. every 12 hours Cefdinir 300 mg p.o. every 12 hours Treat with both for 7 days. Given SARAH will need close watch on renal function and potassium while on Bactrim. Assessment and plan unchanged as compared with 11/21 except as edited above. Monitoring for ongoing therapeutic and potential untoward effect of antibiotic therapy. Following Signature: Arvin Kinney MD Pager: [phone] Normal [facility] Vancomycin [place] Ser[facility]-mCncon 11-23-2023 Vancomycin random [Mass/Vol] 26.8 ug/mL High 10.0-20.0 [facility] Comment on above: Order Comment: Speci men Type: BLOOD SPECIMENOrdering Facility: [facility] Address: [address] [place] [address] Result Comment: Refe rence ranges and high/low indicator flags are provided as general guidelines only. The treating physician must determine appropriate target levels/dosing based on the specific clinical situation. Performed By: #### 4 091-5 ####[facility] LABCLIA [id number] [place] [address] [place] Basic metabolic 2000 panelon 11-22-2023 Anion gap [Moles/Vol] 7 mmol/L Low 9-18 [facility] Comment on above: Order Comment: Speci oziel Type: BLOOD SPECIMENOrdering Facility: [facility] Address: [address] [place] [address] Performed By: #### 2 4321-2 ####[facility] LABCLIA [id number] [place] [address] [place] Calcium [Mass/Vol] 8.2 mg/dL Low 8.5-10.2 [facility] Comment on above: Order Comment: Speci oziel Type: BLOOD SPECIMENOrdering Facility: [facility] Address: [address] [place] [address] Performed By: #### 2 4321-2 ####[facility] LABCLIA [id number] [place] [address] [place] Chloride [Moles/Vol] 100 mmol/L Normal 97-105 [facility] Comment on above: Order Comment: Speci men Type: BLOOD SPECIMENOrdering Facility: [facility] Address: [address] [place] [address] Performed By: #### 2 4321-2 ####[facility] LABCLIA [id number] [place] [address] [place] CO2 [Moles/Vol] 32 mmol/L High 22-30 [facility] Comment on above: Order Comment: Speci men Type: BLOOD SPECIMENOrdering Facility: [facility] Address: [address] [place] [address] Performed By: #### 2 4321-2 ####[facility] LABIA [id number] [place] [address] [place] Creatinine [Mass/Vol] 1.63 mg/dL High 0.73-1.22 [facility] Comment on above: Order Comment: Speci men Type: BLOOD SPECIMENOrdering Facility: [facility] Address: [address] [place] [address] Performed By: #### 2 4321-2 ####[facility] LABIA [id number] [place] [address] [place] Creatinine and Glomerular filtration rate.predicted panel (S/P/Bld) 50 mL/min/1.73m??? Low >=60 [facility] Comment on above: Order Comment: Speci men Type: BLOOD SPECIMENOrdering Facility: [facility] Address: [address] [place] [address] Result Comment: Ashley mated Glomerular Filtration Rate (eGFR) is calculated using the 2020 CKD-EPI creatinine equation. This equation utilizes serum creatinine, sex, and age as parameters. The creatinine assay has traceable calibration to isotope dilution-mass spectrometry. Refer to KDIGO guidelines for clinical interpretation. In patients with unstable renal function, e.g. those with acute kidney injury, the eGFR may not accurately reflect actual GFR. Performed By: #### 2 4321-2 ####[facility] LABCLIA [id number] [place] [address] [place] Glucose [Mass/Vol] 221 mg/dL High 74-99 [facility] Comment on above: Order Comment: Speci men Type: BLOOD SPECIMENOrdering Facility: [facility] Address: [address] [place] [address] Result Comment: The [place] Diabetes Association (ADA) provides guidance for cutoff values for fasting glucose and random glucose. The ADA defines fasting as no caloric intake for at least 8 hours. Fasting plasma glucose results between 100 to 125 mg/dL indicate increased risk for diabetes (prediabetes). Fasting plasma glucose results greater than or equal to 126 mg/dL meet the criteria for diagnosis of diabetes. In the absence of unequivocal hyperglycemia, results should be confirmed by repeat testing. In a patient with classic symptoms of hyperglycemia or hyperglycemic crisis, random plasma glucose results greater than or equal to 200 mg/dL meet the criteria for diagnosis of diabetes. Reference: Standards of Medical Care in Diabetes 2016, [place] [employer] Association. Diabetes Care. 2016.39(Suppl 1). Performed By: #### 2 4321-2 ####[facility] LABIA [id number] [place] [address] [place] Potassium [Moles/Vol] 3.9 mmol/L Normal 3.7-5.1 [facility] Comment on above: Order Comment: Speci men Type: BLOOD SPECIMENOrdering Facility: [facility] Address: [address] [place], [place] [id number] Performed By: #### 2 4321-2 ####[facility] LABIA [id number] [place] [address] [place] Sodium [Moles/Vol] 139 mmol/L Normal 136-144 [facility] Comment on above: Order Comment: Speci men Type: BLOOD SPECIMENOrdering Facility: [facility] Address: [address] [place], [place] [id number] Performed By: #### 2 4321-2 ####[facility] LABIA [id number] [place] [address] [place] Urea nitrogen [Mass/Vol] 13 mg/dL Normal 9-24 [facility] Comment on above: Order Comment: Speci men Type: BLOOD SPECIMENOrdering Facility: [facility] Address: [address] [place] [address] Performed By: #### 2 4321-2 ####[facility] LABCLIA [id number] [place] [address] [place] CBC panel Auto (Bld)on 11-21 Erythrocyte distribution width (RBC) [Ratio] 17.2 % High 11.5-15.0 [facility] Comment on above: Order Comment: Speci men Type: BLOOD SPECIMENOrdering Facility: [facility] Address: [address] [place] [address] Performed By: #### 5 8410-2 ####[facility] LABCLIA [id number] [place] [address] [place] Hematocrit (Bld) [Volume fraction] 32.0 % Low 39.0-51.0 [facility] Comment on above: Order Comment: Speci men Type: BLOOD SPECIMENOrdering Facility: [facility] Address: [address] [place] [address] Performed By: #### 5 8410-2 ####[facility] LABCLIA [id number] [place] [address] [place] Hemoglobin (Bld) [Mass/Vol] 9.1 g/dL Low 13.0-17.0 [facility] Comment on above: Order Comment: Speci men Type: BLOOD SPECIMENOrdering Facility: [facility] Address: [address] [place] [address] Performed By: #### 5 8410-2 ####[facility] LABCLIA [id number] [place] [address] [place] MCH (RBC) [Entitic mass] 25.2 pg Low 26.0-34.0 [facility] Comment on above: Order Comment: Speci men Type: BLOOD SPECIMENOrdering Facility: [facility] Address: [address] [place] [address] Performed By: #### 5 8410-2 ####[facility] LABIA [id number] [place] [address] [place] MCHC (RBC) [Mass/Vol] 28.4 g/dL Low 30.5-36.0 [facility] Comment on above: Order Comment: Speci men Type: BLOOD SPECIMENOrdering Facility: [facility] Address: [address] [place] [address] Performed By: #### 5 8410-2 ####[facility] [id number] [place] [address] [place] MCV (RBC) [Entitic vol] 88.6 fL Normal 80.0-100.0 [facility] Comment on above: Order Comment: Speci men Type: BLOOD SPECIMENOrdering Facility: [facility] Address: [address] [place] [address] Performed By: #### 5 8410-2 ####[facility] LABIA [id number] [place] [address] [place] Nucleated RBC (Bld) [#/Vol] 10*3/uL Normal <0.01 [facility] Comment on above: Order Comment: Speci men Type: BLOOD SPECIMENOrdering Facility: [facility] Address: [address] [place] [address] Performed By: #### 5 8410-2 ####[facility] [id number] [place] [address] [place] Platelet mean volume (Bld) [Entitic vol] 8.9 fL Low 9.0-12.7 [facility] Comment on above: Order Comment: Speci men Type: BLOOD SPECIMENOrdering Facility: [facility] Address: [address] [place] [address] Performed By: #### 5 8410-2 ####[facility] LABIA [id number] [place] [address] [place] Platelets (Bld) [#/Vol] 251 10*3/uL Normal 150-400 [facility] Comment on above: Order Comment: Speci men Type: BLOOD SPECIMENOrdering Facility: [facility] Address: [address] [place] [address] Performed By: #### 5 8410-2 ####[facility] LABIA [id number] [place] [address] [place] RBC (Bld) [#/Vol] 3.61 10*6/uL Low 4.20-6.00 [facility] Comment on above: Order Comment: Speci men Type: BLOOD SPECIMENOrdering Facility: [facility] Address: [address] [place] [address] Performed By: #### 5 8410-2 ####[facility] [id number] [place] [address] [place] WBC (Bld) [#/Vol] 9.23 10*3/uL Normal 3.70-11.00 [facility] Comment on above: Order Comment: Speci men Type: BLOOD SPECIMENOrdering Facility: [facility] Address: [address] [place] [address] Performed By: #### 5 8410-2 ####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 Hospital Course: The patient was admitted and on exam, diagnosed with scrotal cellulitis, no concern for Grecia's from admitting team or ID team. Patient was transitioned to home medication as well as restarted on prior to admission medications, and diet was advanced as tolerated. Activity level was gradually increased.Cultures were drawn and antibiotics were de-escalated from Zosyn/Vanco/Clinda to Zosyn and vancomycin. Exam was stable on HD1 and low suspicion for necrotiziing fasciitis. The patient was then deemed fit for discharge with plan for oral antibiotic course per ID team. Patient Condition at Discharge: Improved Discharge Disposition: Home Co-morbidities: Morbid obesity POA - weight loss DMT2 POA - SSI Anxiety POA - monitor HLD POA - home meds Scrotal cellulitis POA - abx, ID consult CAD s/p PCI POA - ASA81, holding dagibatran - resume when able post-op. Not taking Brillanta at home BPH POA - flomax Information Provided to the Patient: Patient was given a copy of Discharge Instructions Discharge Medications: Medication List CHANGE how you take these medications predniSONE 5 mg tablet Commonly known as: DELTASONE 17.5 mg daily for 2 week, continue taper by 2.5 mg every 2 weeks. What changed: how much to take how to take this when to take this additional instructions CONTINUE taking these medications aspirin, enteric coated 81 mg EC tablet Commonly known as: ASPIRIN, ENTERIC COATED atorvastatin 40 mg tablet Commonly known as: LIPITOR bumetanide 1 mg tablet Commonly known as: BUMEX * cyanocobalamin (vitamin B-12) 1,000 mcg/mL Kit * cyanocobalamin 500 mcg tablet Commonly known as: VITAMIN B-12 dabigatran etexilate 150 mg Commonly known as: PRADAXA diazePAM 10 mg tablet Commonly known as: VALIUM dicyclomine 20 mg tablet Commonly known as: BENTYL take 1 tablet by mouth every 6 hours ferrous gluconate 324 mg (37.5 mg iron) tablet fluticasone prp-sod.chl,bicarb 50 mcg- 0.9 % Ksps furosemide 20 mg tablet Commonly known as: LASIX gabapentin 100 mg capsule Commonly known as: NEURONTIN glipiZIDE XL 2.5 mg 24 hr tablet Commonly known as: GLUCOTROL XL HYDROcodone-acetaminophe n 5-325 mg per tablet Commonly known as: NORCO hydrocortisone 2.5 % rectal cream Commonly known as: ANUSOL-HC 1 application by RECTAL route four times daily as needed. levothyroxine 150 mcg Cap agqccvcwn-bfiwtl-sfkaxxp ne HCl 2.5-2.5-3.88 % cream Commonly known as: PRIZOTRAL losartan 25 mg tablet Commonly known as: COZAAR losartan-hydroCHLOROthia zide 100-25 mg per tablet Commonly known as: HYZAAR * metoprolol tartrate (short acting) 25 mg tablet Commonly known as: LOPRESSOR Take 1 tablet by mouth every 12 hours. * metoprolol tartrate (short acting) 25 mg tablet Commonly known as: LOPRESSOR NYSTOP powder Generic drug: nystatin omeprazole 20 mg capsule Commonly known as: PriLOSEC take 2 capsules by mouth once daily OXYCODONE ORAL OXYGEN (HOME THERAPY) polyethylene glycol 3350 17 gram/dose powder Commonly known as: MIRALAX Take 17 g by mouth once daily. tamsulosin 0.4 mg Commonly known as: FLOMAX TESSALON PERLES 100 mg capsule Generic drug: benzonatate ticagrelor 90 mg tablet Commonly known as: BRILINTA VENTOLIN HFA 90 mcg/actuation inhaler Generic drug: albuterol HFA VITAMIN C 500 mg tablet Generic drug: ascorbic acid (vitamin C) Zinc Acetate (Oral) 50 mg (zi (more content not included)... Normal [facility] CONSULT PROGon 11-22-2023 CONSULT PROG HNO ID: [id number] Author: NEIL MYERS RPh Service: Pharmacy Author Type: Pharmacist Type: Consult Progress Note Filed: 11/22/2023 14:06 Note Text: PHARMACY VANCOMYCIN DOSING NOTE Patient Name: Cayla Granados Admission Date: 11/21/2023 Date of Consult: 11/22/2023 Time of Consult: 2:03 PM Indication: Skin/Soft tissue infection Goal Range: 15-20 mcg/mL RECOMMENDATIONS/PLAN: Pharmacy consulted for vancomycin dosing for Cayla Granados, a 53 year old male. 1. Patient is currently ordered Vancomycin 1.75 g IV q12h. Today is day 4 of therapy. Patient was transferred from [facility] on vancomycin, which started on 11/19/23. 2. No vancomycin level has been drawn for this dosing regimen. 3. Serum creatinine and/or urine output have changed in the previous days, therefore will empirically change dose to vancomycin 1.5g x 1. 4. The next vancomycin level will be ordered for 11/23/23 unless clinically indicated sooner. (Pharmacy will order) We will follow patient renal function, vancomycin levels and doses with you during the course of therapy. Additional recommendations will appear in follow up notes. If you have any questions, please contact Neil Myers, PharmD at [phone]. Age: [age] year old Allergies: ALLERGIES Allergen Reactions Diclofenac Hives Etanercept Swelling Folic Acid GI Upset dizzy/light headed Levofloxacin Other: See Comments abdominal pain and cramping, stiffness in neck Methotrexate GI Upset dizzy, light headed, diarrhea/vomiting Penicillins Hives Tolerated Unasyn and Zosyn at [facility] (11/2023) Plaquenil [Hydroxyc* GI Upset dizzy/light headed Rivaroxaban GI Upset Sulfa (Sulfonamide * Hives Warfarin GI Upset Last 3 Encounter Wt Readings: Date: Wt: 11/18/2023 216.9 kg (478 lb 2.8 oz) 05/16/2023 195 kg (430 lb) 05/05/2023 203.7 kg (449 lb) Last 1 Encounter Ht Readings: Date: Ht: 11/18/2023 185.4 cm (6' 1 ) CrCl: 98 mL/min Temp (24hrs), Av.6 ?C (97.8 ?F), Min:36.4 ?C (97.5 ?F), Max:36.7 ?C (98 ?F) - Current Temp: 36.5 ?C (97.7 ?F) Labs BUN (mg/dL) Date Value 11/22/2023 13 11/21/2023 10 05/16/2023 15 Creatinine (mg/dL) Date Value 11/22/2023 1.63 (H) 11/21/2023 1.18 05/16/2023 1.07 WBC (k/uL) Date Value 11/22/2023 9.23 11/21/2023 11.39 (H) 05/16/2023 10.90 Vancomycin Levels: Vancomycin (ug/mL) Date/Time Value 11/21/2023 0628 23.1 (H) 08/18/2022 1139 19.3 [facility] Normal [facility] CONSULT PROG HNO ID: [id number] Author: ARVIN KINNEY MD Service: Infectious Disease Author Type: Physician Type: Consult Progress Note Filed: 11/22/2023 11:16 Note Text: INFECTIOUS DISEASE CONSULT SERVICE PROGRESS NOTE Patient Name: Cayla Granados Interval Events: Course reviewed Feels better-less pain Eager to be discharged from the hospital No fevers or chills Has not been up and out of bed Discussed with him prior episode of a similar type event in July when he was hospitalized at [facility]. The issue was not in the exact same location but did involve his scrotum. He showed me a picture on his phone where someone had written down Klebsiella pneumoniae and that this was the cause of his infection. He received meropenem while in the hospital and was discharged on Bactrim and cefdinir. He did well after that event. In addition to those reviewed and documented in the HPI all other systems reviewed and were negative. MEDICATIONS Medications reviewed. Current Facility-Administered Medications Medication Dose Route Frequency gabapentin 100 mg cap(s) (NEURONTIN) 100 mg ORAL AT BEDTIME atorvastatin 40 mg tab(s) (LIPITOR) 40 mg ORAL DAILY tamsulosin 0.4 mg cap(s) (FLOMAX) 0.4 mg ORAL DAILY albuterol HFA 90 mcg/actuation 2 Puff (PROVENTIL HFA, VENTOLIN HFA) 2 Puff INHALATION q 6 H PRN metoprolol tartrate (short acting) 50 mg tab(s) (LOPRESSOR) 50 mg ORAL BID furosemide 40 mg tab(s) (LASIX) 40 mg ORAL BID 9a/5p aspirin, enteric coated 81 mg tab(s) 81 mg ORAL DAILY docusate sodium 100 mg cap(s) (COLACE) 100 mg ORAL BID NaCl 0.9% iv flush bag 20 mL INTRAVENOUS PRN lactated ringers iv infusion 125 mL/hr INTRAVENOUS CONTINUOUS acetaminophen 1,000 mg tab(s) (TYLENOL) 1,000 mg ORAL q 6 H oxyCODONE IR 5 mg tab(s) (ROXICODONE) 5 mg ORAL q 6 H PRN HYDROmorphone 0.2 mg injection (DILAUDID) 0.2 mg INTRAVENOUS q 2 H PRN ondansetron (PF) 4 mg injection (ZOFRAN) 4 mg INTRAVENOUS q 6 H PRN melatonin 6 mg tab(s) 6 mg ORAL DAILY (8 PM) phenol 1 Frost (CHLORASEPTIC) 1 Frost MUCOUS MEMBRANE (TOPICAL MOUTH AND THROAT) q 2 H PRN simethicone, chewable 80 mg tab(s) (MYLICON) 80 mg ORAL q 8 H PRN heparin 7,500 Units injection 7,500 Units SUBCUTANEOUS q 8 H vancomycin dosing and monitoring per pharmacy OTHER As Directed pantoprazole DR 40 mg tab(s) (PROTONIX) 40 mg ORAL DAILY (6 AM) losartan 25 mg tab(s) (COZAAR) 25 mg ORAL DAILY levothyroxine (SYNTHROID) tab(s) 238 mcg 238 mcg ORAL DAILY (6 AM) piperacillin-tazobactam iv piggyback 3.375 g in dextrose (iso-osmotic) 50 mL (ZOSYN) 3.375 g INTRAVENOUS q 6 H dextrose 15 gram/32 mL 15 g (TRUEPLUS) 15 g ORAL PRN Or glucagon 1 mg injection 1 mg INTRAMUSCULAR PRN Or dextrose 10% iv bolus 12.5 g INTRAVENOUS PRN insulin lispro injection (rapid acting) (ADMElog) SUBCUTANEOUS w MEALS vancomycin 1.75 g in D5W 500 mL (VANCOCIN) 1.75 g INTRAVENOUS q 12 HR diazePAM 10 mg tab(s) (VALIUM) 10 mg ORAL BID PRN Examination: BP (!) 121/47 Pulse 83 Temp 36.4 ?C (97.5 ?F) (Oral) Resp 17 Ht 185.4 cm (6' 1 ) Wt (!) 216.9 kg (478 lb 2.8 oz) SpO2 95% BMI 63.09 kg/m? Temp (24hrs), Av.6 ?C (97.8 ?F), Min:36.4 ?C (97.5 ?F), Max:36.7 ?C (98 ?F) General appearance: Resting in bed, nontoxic-appearing, obese Skin: No rash Head: Negative Eyes: Anicteric Oropharynx: No thrush Neck: Negative Back: not examined Lungs: Bilateral breath sounds anteriorly Heart: Tones distant, regular Abdomen: Obese, no mass Extremities: No significant pitting edema but very full legs Musculoskeletal: Negative Peripheral pulses: Radial pulses palpable Neuro: Grossly nonfocal CVC in the right IJ Scrotum-induration in the right scrotum appears to have decreased, no crepitus, less pain to palpation, I cannot appreciate a discrete abscess. Exam unchanged as compared with 11/20 other than as edited above. Lab, Microbiology and Imaging Data: Personally reviewed imaging studies, laboratory results, and microbiology results. 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 Nontoxic on evaluation. At the bedside there does not appear to be obvious signs of a necrotizing/synergistic gangrene process. We have no microbiology from the outside hospital stays at this point. He is afebrile without leukocytosis. Notable aspects of his workup here thus far has included: 1 blood culture 11/20-pending He seems to be improving. White blood cell count is normalized. There has been a bump in his creatinine. RECOMMENDATIONS: Continue Zosyn 3.375 g IV every 6 hours while in the hospital. At time of discharge- Bactrim DS 1 p.o. every 12 hours Cefdinir 300 mg p.o. every 12 hours Treat with both for 7 days. Probably best to make sure his creatinine has stabilized prior to sending out on Bactrim. Assessmen (more content not included)... Normal [facility] Bacteria Bld Culton 11-21-19 24 Bacteria identified Cx Nom (Bld) CULTURE, BLOOD: No growth 5 days Normal [facility] Comment on above: Performed By: #### 6 00-7 #### [facility] CLIA [id number] [address] [place] [address] [place] CBC W Auto Differential pane l (Bld)on 11-21-2023 Anisocytosis Ql (Bld) Present Normal [facility] Comment on above: Order Comment: Speci men Type: BLOOD SPECIMENOrdering Facility: [facility] Address: [address] [place] [address] Performed By: #### 5 7021-8 ####[facility] [id number] [id number] [address] [place] Basophils (Bld) [#/Vol] 0.00 10*3/uL Normal <0.11 [facility] Comment on above: Order Comment: Speci men Type: BLOOD SPECIMENOrdering Facility: [facility] Address: [address] [place] [address] Performed By: #### 5 7021-8 ####[facility]CLIA [id number] [facility] [place] [address] [place] Basophils/100 WBC (Bld) 0.0 % Normal [facility] Comment on above: Order Comment: Speci men Type: BLOOD SPECIMENOrdering Facility: [facility] Address: [address] [place] [address] Performed By: #### 5 7021-8 ####[facility]CLIA [id number] [place] [address] [place] Differential cell count method Nom (Bld) Manual Normal [facility] Comment on above: Order Comment: Speci men Type: BLOOD SPECIMENOrdering Facility: [facility] Address: [address] [place] [address] Performed By: #### 5 7021-8 ####[facility]CLIA [id number] [place] [address] [place] Eosinophils (Bld) [#/Vol] 0.09 10*3/uL Normal <0.46 [facility] Comment on above: Order Comment: Speci men Type: BLOOD SPECIMENOrdering Facility: [facility] Address: [address] [place] [address] Performed By: #### 5 7021-8 ####[facility]CLIA [id number] [place] [address] [place] Eosinophils/100 WBC (Bld) 0.8 % Normal [facility] Comment on above: Order Comment: Speci men Type: BLOOD SPECIMENOrdering Facility: [facility] Address: [address] [place] [address] Performed By: #### 5 7021-8 ####[facility]CLIA [id number] [place] [address] [place] Erythrocyte distribution width (RBC) [Ratio] 16.9 % High 11.5-15.0 [facility] Comment on above: Order Comment: Speci men Type: BLOOD SPECIMENOrdering Facility: [facility] Address: [address] [place] [address] Performed By: #### 5 7021-8 ####[facility]IA [id number] [place] [address] [place] Hematocrit (Bld) [Volume fraction] 32.6 % Low 39.0-51.0 [facility] Comment on above: Order Comment: Speci men Type: BLOOD SPECIMENOrdering Facility: [facility] Address: [address] [place] [address] Performed By: #### 5 7021-8 ####[facility] LABIA [id number] [place] [address] [place] Hemoglobin (Bld) [Mass/Vol] 9.5 g/dL Low 13.0-17.0 [facility] Comment on above: Order Comment: Speci men Type: BLOOD SPECIMENOrdering Facility: [facility] Address: [address] [place] [address] Performed By: #### 5 7021-8 ####[facility]IA [id number] [place] [address] [place] Lymphocytes (Bld) [#/Vol] 1.64 10*3/uL Normal 1.00-4.00 [facility] Comment on above: Order Comment: Speci men Type: BLOOD SPECIMENOrdering Facility: [facility] Address: [address] [place] [address] Performed By: #### 5 7021-8 ####[facility] LABIA [id number] [place] [id number] [place] Lymphocytes/100 WBC (Bld) 14.4 % Normal [facility] Comment on above: Order Comment: Speci men Type: BLOOD SPECIMENOrdering Facility: [facility] Address: [address] [place] [address] Performed By: #### 5 7021-8 ####[facility] LABCLIA [id number] [place] [address] [place] MCH (RBC) [Entitic mass] 25.1 pg Low 26.0-34.0 [facility] Comment on above: Order Comment: Speci men Type: BLOOD SPECIMENOrdering Facility: [facility] Address: [address] [place] [address] Performed By: #### 5 7021-8 ####[facility]CLIA [id number] [place] [address] [place] MCHC (RBC) [Mass/Vol] 29.1 g/dL Low 30.5-36.0 [facility] Comment on above: Order Comment: Speci men Type: BLOOD SPECIMENOrdering Facility: [facility] Address: [address] [place] [address] Performed By: #### 5 7021-8 ####[facility]CLIA [id number] [place] [address] [place] MCV (RBC) [Entitic vol] 86.2 fL Normal 80.0-100.0 [facility] Comment on above: Order Comment: Speci men Type: BLOOD SPECIMENOrdering Facility: [facility] Address: [address] [place] [address] Performed By: #### 5 7021-8 ####[facility]CLIA [id number] [place] [address] [place] Monocytes (Bld) [#/Vol] 0.58 10*3/uL Normal <0.87 [facility] Comment on above: Order Comment: Speci men Type: BLOOD SPECIMENOrdering Facility: [facility] Address: [address] [place] [address] Performed By: #### 5 7021-8 ####[facility]CLIA [id number] [place] [address] [place] Monocytes/100 WBC (Bld) 5.1 % Normal [facility] Comment on above: Order Comment: Speci men Type: BLOOD SPECIMENOrdering Facility: [facility] Address: [address] [place] [address] Performed By: #### 5 7021-8 ####[facility]CLIA [id number] [place] [address] [place] Neutrophils (Bld) [#/Vol] 9.08 10*3/uL High 1.45-7.50 [facility] Comment on above: Order Comment: Speci men Type: BLOOD SPECIMENOrdering Facility: [facility] Address: [address] [place] [address] Performed By: #### 5 7021-8 ####[facility]CLIA [id number] [place] [address] [place] Neutrophils/100 WBC (Bld) 79.7 % Normal [facility] Comment on above: Order Comment: Speci men Type: BLOOD SPECIMENOrdering Facility: [facility] Address: [address] [place] [address] Performed By: #### 5 7021-8 ####[facility]CLIA [id number] [place] [address] [place] Nucleated RBC (Bld) [#/Vol] 10*3/uL Normal <0.01 [facility] Comment on above: Order Comment: Speci men Type: BLOOD SPECIMENOrdering Facility: [facility] Address: [address] [place] [address] Performed By: #### 5 7021-8 ####[facility]CLIA [id number] [place] [address] [place] Nucleated RBC/100 WBC (Bld) [Ratio] 0.0 /100 WBC Normal [facility] Comment on above: Order Comment: Speci men Type: BLOOD SPECIMENOrdering Facility: [facility] Address: [address] [place] [address] Performed By: #### 5 7021-8 ####[facility]CLIA [id number] [place] [address] [place] Ovalocytes LM Ql (Bld) Few Normal [facility] Comment on above: Order Comment: Speci men Type: BLOOD SPECIMENOrdering Facility: [facility] Address: [address] [place] [address] Performed By: #### 5 7021-8 ####[facility]IA [id number] [place] [address] [place] Platelet mean volume (Bld) [Entitic vol] 9.0 fL Normal 9.0-12.7 [facility] Comment on above: Order Comment: Speci men Type: BLOOD SPECIMENOrdering Facility: [facility] Address: [address] [place] [address] Performed By: #### 5 7021-8 ####[facility]IA [id number] [place] [address] [place] Platelets (Bld) [#/Vol] 280 10*3/uL Normal 150-400 [facility] Comment on above: Order Comment: Speci men Type: BLOOD SPECIMENOrdering Facility: [facility] Address: [address] [place] [address] Performed By: #### 5 7021-8 ####[facility]CLIA [id number] [place] [address] [place] Platelets Estimate (Bld) [#/Vol] Adequate Normal [facility] Comment on above: Order Comment: Speci men Type: BLOOD SPECIMENOrdering Facility: [facility] Address: [address] [place] [address] Performed By: #### 5 7021-8 ####[facility]CLIA [id number] [place] [address] [place] Polychromasia LM Ql (Bld) Slight Normal [facility] Comment on above: Order Comment: Speci men Type: BLOOD SPECIMENOrdering Facility: [facility] Address: [address] [place] [address] Performed By: #### 5 7021-8 ####[facility]CLIA [id number] [place] [address] [place] RBC (Bld) [#/Vol] 3.78 10*6/uL Low 4.20-6.00 [facility] Comment on above: Order Comment: Speci men Type: BLOOD SPECIMENOrdering Facility: [facility] Address: [address] [place] [address] Performed By: #### 5 7021-8 ####[facility]CLIA [id number] [place] [address] [place] RED CELL MORPH Reviewed: see result s of individual morphologies Normal [facility] Comment on above: Order Comment: Speci men Type: BLOOD SPECIMENOrdering Facility: [facility] Address: [address] [place] [address] Performed By: #### 5 7021-8 ####[facility]CLIA [id number] [place] [address] [place] WBC (Bld) [#/Vol] 11.39 10*3/uL High 3.70-11.00 [facility] Comment on above: Order Comment: Speci men Type: BLOOD SPECIMENOrdering Facility: [facility] Address: [address] [place] [address] Performed By: #### 5 7021-8 ####[facility] LABCLIA [id number] [place] [address] [facility] CONSULTon 11-21-2023 CONSULT HNO ID: [id number] Author: ARVIN KINNEY MD Service: Infectious Disease Author Type: Physician Type: Consults Filed: 11/21/2023 13:56 Note Text: INFECTIOUS DISEASE INPATIENT CONSULTATION Patient is sent at the request of Dr. Desai for my opinion regarding a scrotal infection. My final recommendations will be communicated back to the requesting physician by way of shared Medical Record Avrin Kinney MD INFD Consultation: Patient: Cayla Granados Age: [age] year old Sex: male 53-year-old with a past medical history including but not limited to rheumatoid arthritis was admitted to our hospital on 11/20 for further evaluation of scrotal infection. About 2 weeks ago he developed scrotal swelling. He was prescribed cefdinir and Bactrim by an ID physician who has seen him before for scrotal abscesses. Condition did not seem to improve. He was admitted to [facility] on 11/11 and was hospitalized there until 11/15. He was treated with piperacillin/tazobactam. On 11/15 the abscess burst/spontaneously drained. He was discharged on Augmentin and doxycycline. He continued to have discomfort in the scrotum along with ongoing drainage. He was unable to manage at at home. He was admitted to the hospital again in [place] on 11/16. It appears that Unasyn was given. Antibiotics were then changed to Augmentin and doxycycline. A CT scan was done which raise concerns for spread of the cellulitis towards his perineum. He was transferred to our hospital. He has not felt systemically ill. There is some discomfort but that has improved. He has had ongoing drainage. As mentioned above he has had abscesses on his scrotum previously. They have spontaneously drained in the past. This episode has been associated with longer duration of his symptoms. Does not appear that he has been formally diagnosed with diabetes or at least he does not consider himself to be formally diabetic. He is not on treatment for diabetes. Does have rheumatoid arthritis. Has not been on a TNF tejinder for several years. Allergy list includes penicillin, sulfa, and levofloxacin. It appears that he is not allergic to any of these. PAST MEDICAL HISTORY Diagnosis Date Anxiety Colon polyps Constipation Depression Gastritis Hip disease Hip pain Hypercholesteremia Hypoglycemic syndrome Nausea Overactive bladder Panic attacks Rheumatoid arthritis (HCC) Stomach ulcer PAST SURGICAL HISTORY Procedure Laterality Date COLONOSCOP W/ OR W/O BRSH SPEC 03/05/16 Colonoscopy mac [facility] EGD W/O OR W/BRUSH/WASH 03/05/16 EGD [facility] NONE Social History Tobacco Use Smoking status: Every Day Packs/day: 1.5 Types: Cigarettes Smokeless tobacco: Former Types: Chew Substance Use Topics Alcohol use: No Drug use: No FAMILY HISTORY Problem Relation Age of Onset Kidney Disease Father Breast Cancer Mother other (thyroid issues) Sister There is no immunization history on file for this patient. Current medications reviewed. ALLERGIES Allergen Reactions Diclofenac Hives Etanercept Swelling Folic Acid GI Upset dizzy/light headed Levofloxacin Other: See Comments abdominal pain and cramping, stiffness in neck Methotrexate GI Upset dizzy, light headed, diarrhea/vomiting Penicillins Hives Tolerated Unasyn and Zosyn at [facility] (11/2023) Plaquenil [Hydroxyc* GI Upset dizzy/light headed Rivaroxaban GI Upset Sulfa (Sulfonamide * Hives Warfarin GI Upset REVIEW OF SYSTEMS: All other systems were reviewed and were negative. OBJECTIVE: BP 138/54 Pulse 75 Temp 36.6 ?C (97.9 ?F) (Oral) Resp 18 Ht 185.4 cm (6' 1 ) Wt (!) 216.9 kg (478 lb 2.8 oz) SpO2 97% BMI 63.09 kg/m? Temp (24hrs), Av.7 ?C (98 ?F), Min:36.6 ?C (97.9 ?F), Max:36.7 ?C (98.1 ?F) PHYSICAL EXAM: PHYSICAL EXAMINATION: General appearance: Resting in bed, nontoxic-appearing, obese Skin: No rash Head: Negative Eyes: Anicteric Oropharynx: No thrush Neck: Negative Back: not examined Lungs: Bilateral breath sounds anteriorly Heart: Tones distant, regular Abdomen: Obese, no mass Extremities: No significant pitting edema but very full legs Musculoskeletal: Negative Peripheral pulses: Radial pulses palpable Neuro: Grossly nonfocal CVC in the right IJ Scrotum-induration along the right side of the scrotum with area of necessitation distally; no crepitus, no involvement of the right thigh LABS: Personally reviewed imaging studies, laboratory results, and microbiology results. 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 Nontoxic on evaluation. At the bedside there does not appear to be obvious signs of a necrotizing/synergistic gangrene process. We have no microbiology from the outside hospital stays at this point. He is afebrile (more content not included)... Normal [facility] CONSULT PROGon 11-21-2023 CONSULT PROG HNO ID: [id number] Author: ROXY MILES [facility] Service: Pharmacy Author Type: Pharmacist Type: Consult Progress Note Filed: 11/21/2023 08:59 Note Text: PHARMACY VANCOMYCIN DOSING NOTE Patient Name: Cayla Granados Admission Date: 11/21/2023 Date of Consult: 11/21/2023 Time of Consult: 7:34 AM Indication: Skin/Soft tissue infection Goal Range: 15-20 mcg/mL RECOMMENDATIONS/PLAN: Pharmacy consulted for vancomycin dosing for Cayla Granados, a 53 year old male. Patient transferred from [facility] where they were receiving vancomycin 1.5 g q8h with last dose 11/20/23 @ 2200 and last level 11/20/23 @ 1100 = 19.4. Appears this vancomycin regimen was started 11/19/23 per [facility]. 1. Patient is currently ordered Vancomycin 1.5 g IV q8h. Today is day 3 of therapy. 2. The most recent vancomycin level was 23.1 mcg/mL drawn at 0628 on 11/21/23. This is a ~8 hour level on the 3rd day of therapy. 3. Will decrease vancomycin to 1.75 g with a dosing interval of q12h. 4. The next vancomycin level will be ordered for 11/23/23 unless clinically indicated sooner. (Pharmacy will order) We will follow patient renal function, vancomycin levels and doses with you during the course of therapy. Additional recommendations will appear in follow up notes. If you have any questions, please contact Roxy Miles at [phone]. Age: [age] year old Allergies: ALLERGIES Allergen Reactions Diclofenac Hives Etanercept Swelling Folic Acid GI Upset dizzy/light headed Levofloxacin Other: See Comments abdominal pain and cramping, stiffness in neck Methotrexate GI Upset dizzy, light headed, diarrhea/vomiting Penicillins Hives Tolerated Unasyn and Zosyn at [facility] [facility] (11/2023) Plaquenil [Hydroxyc* GI Upset dizzy/light headed Rivaroxaban GI Upset Sulfa (Sulfonamide * Hives Warfarin GI Upset Last 3 Encounter Wt Readings: Date: Wt: 11/18/2023 216.9 kg (478 lb 2.8 oz) 05/16/2023 195 kg (430 lb) 05/05/2023 203.7 kg (449 lb) Last 1 Encounter Ht Readings: Date: Ht: 11/18/2023 185.4 cm (6' 1 ) CrCl: 136.3 mL/min Temp (24hrs), Av.7 ?C (98 ?F), Min:36.6 ?C (97.9 ?F), Max:36.7 ?C (98.1 ?F) - Current Temp: 36.6 ?C (97.9 ?F) Labs BUN (mg/dL) Date Value 05/16/2023 15 04/20/2023 11 03/10/2023 13 Creatinine (mg/dL) Date Value 05/16/2023 1.07 04/20/2023 1.67 (H) 03/10/2023 0.83 WBC (k/uL) Date Value 05/16/2023 10.90 04/20/2023 9.84 02/11/2023 17.52 (H) Vancomycin Levels: Vancomycin (ug/mL) Date/Time Value 08/18/2022 1139 19.3 Roxy Miles [facility] Normal [facility] Comprehensive metabolic 2000 panelon 11-21-2023 Albumin [Mass/Vol] 2.7 g/dL Low 3.9-4.9 [facility] Comment on above: Order Comment: Speci men Type: BLOOD SPECIMENOrdering Facility: [facility] Address: [address] [place] [address] Performed By: #### 1 9123-9, 85621-2 ####[facility] LABCLIA [id number] [address] [id number] [address] [place] ALP [Catalytic activity/Vol] 100 U/L Normal 38-113 [facility] Comment on above: Order Comment: Speci men Type: BLOOD SPECIMENOrdering Facility: [facility] Address: [address] [place] [address] Performed By: #### 1 9123-9, ####[facility] LABCLIA [id number] [place] [address] [place] ALT [Catalytic activity/Vol] 15 U/L Normal 10-54 [facility] Comment on above: Order Comment: Speci men Type: BLOOD SPECIMENOrdering Facility: [facility] Address: [address] [place] [address] Performed By: #### 1 9123-9, ####[facility] LABCLIA [id number] [place] [address] [place] Anion gap [Moles/Vol] 11 mmol/L Normal 9-18 [facility] Comment on above: Order Comment: Speci men Type: BLOOD SPECIMENOrdering Facility: [facility] Address: [address] [place] [address] Performed By: #### 1 9123-9, ####[facility] LABCLIA [id number] [place] [address] [place] AST [Catalytic activity/Vol] 16 U/L Normal 14-40 [facility] Comment on above: Order Comment: Speci men Type: BLOOD SPECIMENOrdering Facility: [facility] Address: [address] [place] [address] Performed By: #### 1 9123-9, 77357-4 ####[facility] LABCLIA [id number] [place] [address] [place] Bilirubin [Mass/Vol] 0.2 mg/dL Normal 0.2-1.3 [facility] Comment on above: Order Comment: Speci men Type: BLOOD SPECIMENOrdering Facility: [facility] Address: [address] [place] [address] Performed By: #### 1 23-9, 72145-0 ####[facility] LABCLIA [id number] [place] [address] [place] Calcium [Mass/Vol] 8.6 mg/dL Normal 8.5-10.2 [facility] Comment on above: Order Comment: Speci men Type: BLOOD SPECIMENOrdering Facility: [facility] Address: [address] [place] [address] Performed By: #### 1 9, 37760-2 ####[facility] LABCLIA [id number] [place] [address] [place] Chloride [Moles/Vol] 101 mmol/L Normal 97-105 [facility] Comment on above: Order Comment: Speci men Type: BLOOD SPECIMENOrdering Facility: [facility] Address: [address] [place] [address] Performed By: #### 1 239, ####[facility] LABCLIA [id number] [place] [address] [place] CO2 [Moles/Vol] 29 mmol/L Normal 22-30 [facility] Comment on above: Order Comment: Speci men Type: BLOOD SPECIMENOrdering Facility: [facility] Address: [address] [place] [address] Performed By: #### 1 239, 37862-6 ####[facility] LABCLIA [id number] [place] [address] [place] Creatinine [Mass/Vol] 1.18 mg/dL Normal 0.73-1.22 [facility] Comment on above: Order Comment: Speci men Type: BLOOD SPECIMENOrdering Facility: [facility] Address: [address] [place] [address] Performed By: #### 1 239, 78177-7 ####[facility] [id number] [place] [address] [place] Creatinine and Glomerular filtration rate.predicted panel (S/P/Bld) 73 mL/min/1.73m??? Normal >=60 [facility] Comment on above: Order Comment: Sreekanth ludwig Type: BLOOD SPECIMENOrdering Facility: [facility] Address: [address] [place] [address] Result Comment: Ashley mated Glomerular Filtration Rate (eGFR) is calculated using the 2020 CKD-EPI creatinine equation. This equation utilizes serum creatinine, sex, and age as parameters. The creatinine assay has traceable calibration to isotope dilution-mass spectrometry. Refer to KDIGO guidelines for clinical interpretation. In patients with unstable renal function, e.g. those with acute kidney injury, the eGFR may not accurately reflect actual GFR. Performed By: #### 1 9123-9, 36770-7 ####[facility] [id number] [place] [address] [place] Glucose [Mass/Vol] 184 mg/dL High 74-99 [facility] Comment on above: Order Comment: Sreekanth ludwig Type: BLOOD SPECIMENOrdering Facility: [facility] Address: [address] [place] [address] Result Comment: The [place] Diabetes Association (ADA) provides guidance for cutoff values for fasting glucose and random glucose. The ADA defines fasting as no caloric intake for at least 8 hours. Fasting plasma glucose results between 100 to 125 mg/dL indicate increased risk for diabetes (prediabetes). Fasting plasma glucose results greater than or equal to 126 mg/dL meet the criteria for diagnosis of diabetes. In the absence of unequivocal hyperglycemia, results should be confirmed by repeat testing. In a patient with classic symptoms of hyperglycemia or hyperglycemic crisis, random plasma glucose results greater than or equal to 200 mg/dL meet the criteria for diagnosis of diabetes. Reference: Standards of Medical Care in Diabetes 2016, [place] Diabetes Association. Diabetes Care. 2016.39(Suppl 1). Performed By: #### 1 9123-9, 41666-4 ####[facility] LABIA [id number] [place] [address] [place] Potassium [Moles/Vol] 4.1 mmol/L Normal 3.7-5.1 [facility] Comment on above: Order Comment: Speci men Type: BLOOD SPECIMENOrdering Facility: [facility] Address: [address] [place] [address] Performed By: #### 1 9123-9, 21402-5 ####[facility] LABCLIA [id number] [place] [address] [place] Protein [Mass/Vol] 6.5 g/dL Normal 6.3-8.0 [facility] Comment on above: Order Comment: Speci men Type: BLOOD SPECIMENOrdering Facility: [facility] Address: [address] [place] [address] Performed By: #### 1 9123-9, 71878-0 ####[facility] LABIA [id number] [place] [address] [place] Sodium [Moles/Vol] 141 mmol/L Normal 136-144 [facility] Comment on above: Order Comment: Speci men Type: BLOOD SPECIMENOrdering Facility: [facility] Address: [address] [place] [address] Performed By: #### 1 9123-9, 43920-7 ####[facility] LABCLIA [id number] [place] [address] [place] Urea nitrogen [Mass/Vol] 10 mg/dL Normal 9-24 [facility] Comment on above: Order Comment: Speci men Type: BLOOD SPECIMENOrdering Facility: [facility] Address: [address] [place] [address] Performed By: #### 1 9123-9, 15861-5 ####[facility] LABCLIA [id number] [place] [id number] [place] ECG COMPLETEon 11-21-2023 ECG COMPLETE Ventricular Rate : 7 7 BPM Atrial Rate : 77 BPM P-R Interval : 184 ms QRS Duration : 118 ms Q-T Interval : 414 ms QTC Calculation(Bazett) : 468 ms Calculated R [place] : -48 degrees Calculated T [place] : 12 degrees NORMAL SINUS RHYTHM LEFT AXIS DEVIATION LOW VOLTAGE RSR' PATTERN IN V1 SUGGESTS INCOMPLETE RIGHT BUNDLE BRANCH BLOCK INFERIOR MYOCARDIAL INFARCTION , AGE UNDETERMINED ABNORMAL ECG Confirmed by MD MIS, PhD, ERIKA ([id number]) on 11/28/2023 8:38:34 AM NAME : CAYLA GRANADOS PID : [id number] : 1970 Gender : Male Race : ORD : [id number] Procedure Date : Nov 21 2023 05:56:30 Edit Date : Nov 28 2023 08:38:35 Diagnosis: NORMAL SINUS RHYTHM LEFT AXIS DEVIATION LOW VOLTAGE RSR' PATTERN IN V1 SUGGESTS INCOMPLETE RIGHT BUNDLE BRANCH BLOCK INFERIOR MYOCARDIAL INFARCTION , AGE UNDETERMINED ABNORMAL ECG Confirmed by MD MIS, PhD, ERIKA ([id number]) on 11/28/2023 8:38:34 AM Test Reason : Pre-OP Location : [address] [place], [place] [address]- Overread By : MD MIS, PhD,ERIKA Edited By : MD MIS, PhD,ERIKA Referred By : LETHA SANDHU Acquired by : YULI ECHEVARRIA [facility] HISTORY PHYSICALon HISTORY PHYSICAL HNO ID: [id number] Author: ELLI LEVINE MD Service: Urology Author Type: Resident Type: H&P Filed: 11/21/2023 07:35 Note Text: -------- Attestation signed by Christian Desai MD at 11/25/2023 7:47 AM I have reviewed the warehouse processor's documentation and verified the findings in the note as written. Christian Desai MD [facility], [facility] -------- UROLOGIC HISTORY AND PHYSICAL PLEASE DO NOT REMOVE FROM THE CHART OR MODIFY PRINTED COPY Service Date: 11/21/2023 Service Time: 5:23 AM ASSESSMENT AND PLAN: 53M with morbid obesity, scrotal pain/swelling for 1 week, assessed at OSH and sent home on PO abx. Re-admitted 11/17 with drainage from scrotum, transferred for concern for Grecia's. WBC was 18, Cr 1 at OSH. Scrotal exam unremarkable except mild diffuse erythema. Plan: - pain control PRN - IS, OOB - CC diet. Colace. MIVF - External catheter, home flomax - ID: - Blood and urine cultures - Start Zosyn (tolerated at OSH despite listed allergy) + vanc + clinda - ID consult - Low suspicion for grecia's as stable exam w/o foul odor, fluctuance, crepitus. - SQH 7500 TID, SCD. Holding dagibatran - restart HD1 if stable Dispo: Likely discharge within 1-2 days with PO abx plan given very unlikely Grecia's on exam on admission - Secondary Dx and Complications - Morbid obesity POA - weight loss DMT2 POA - SSI Anxiety POA - monitor HLD POA - home meds Scrotal cellulitis POA - abx, ID consult CAD s/p PCI POA - ASA81, holding dagibatran - resume when able post-op. Not taking Brillanta at home BPH POA - flomax Will d/w Dr. Giselle Levine MD Urology Resident [phone] After 5pm or weekends: [id number] ([facility]), [id number] ([place]) HPI: 53M with 2 weeks scrotal swelling. Presented to OSH hospital after 1 week of observation. Was diagnosed with scrotal cellulitis and sent home on two bactrim and doxycycline. Re-presented to hospital in [place] due to drainage and increased pain in scrotum. Had spontaneous drainage of fluid from scrotum with now improving exam and scrotal pain/swelling with antibiotic coverage. Transferred due to concern for Grecia's. States scrotum continues to improve significantly and that drainage is minimal now, no fevers/chills, no nausea/vomiting. Constipated for 4 days now. Voiding w/o issues. No other concerns. PAST MEDICAL HISTORY: PAST MEDICAL HISTORY Diagnosis Date Anxiety Colon polyps Constipation Depression Gastritis Hip disease Hip pain Hypercholesteremia Hypoglycemic syndrome Nausea Overactive bladder Panic attacks Rheumatoid arthritis (HCC) Stomach ulcer PAST SURGICAL HISTORY: PAST SURGICAL HISTORY Procedure Laterality Date COLONOSCOP W/ OR W/O BRSH SPEC 03/05/16 Colonoscopy [facility] EGD W/O OR W/BRUSH/WASH 03/05/16 EGD [facility] NONE FAMILY HISTORY: FAMILY HISTORY Problem Relation Age of Onset Kidney Disease Father Breast Cancer Mother other (thyroid issues) Sister SOCIAL HISTORY: Social History Tobacco Use Smoking status: Every Day Packs/day: 1.5 Types: Cigarettes Smokeless tobacco: Former Types: Chew Substance Use Topics Alcohol use: No Drug use: No MEDICATIONS: ferrous gluconate 324 mg (37.5 mg iron) tabletTake 324 mg by mouth twice daily.Disp: Rfl: cephALEXin (KEFLEX) 500 mg capsuleTake 500 mg by mouth three times daily.Disp: Rfl: Zinc Acetate, Oral, 50 mg (zinc) capTake 1 capsule by mouth once daily.Disp: Rfl: sulfamethoxazole-trimeth oprim (BACTRIM) 400-80 mg per tabletTake 1 tablet by mouth once daily.Disp: Rfl: metoprolol tartrate, short acting, (LOPRESSOR) 25 mg tabletTake 50 mg by mouth twice daily.Disp: Rfl: HYDROcodone-acetaminophe n (NORCO) 5-325 mg per tabletTake 1 tablet by mouth every 6 hours as needed for pain.Disp: Rfl: benzonatate (TESSALON PERLES) 100 mg capsuleTake 100 mg by mouth twice daily as needed for cough.Disp: Rfl: furosemide (LASIX) 20 mg tabletTake 40 mg by mouth twice daily.Disp: Rfl: OXYGEN, HOME THERAPY,4 L/min by Nasal Cannula route continuous.Disp: Rfl: fluticasone prp-sod.chl,bicarb 50 mcg- 0.9 % kspsUse 2 Sprays in the nose once daily as needed (allergy s/s).Disp: Rfl: nystatin (NYSTOP) powderApply 1 application to affected area twice daily.Disp: Rfl: tyfzeldfc-jtyprf-dvqznzl ne HCl (PRIZOTRAL) 2.5-2.5-3.88 % creamApply 1 Each to affected area once daily. apply topically with wound careDisp: Rfl: albuterol HFA (VENTOLIN HFA) 90 mcg/actuation inhalerInhale 2 Puffs as instructed every 6 hours as needed for wheezing/shortness of breath.Disp: Rfl: ascorbic acid, vitamin C, (VITAMIN C) 500 mg tabletTake 500 mg by mouth once daily.Disp: Rfl: aspirin, enteric coated (ASPIRIN, ENTERIC COATED (more content not included)... Normal [facility] Magnesium SerPl-mCncon 11-20 Magnesium [Mass/Vol] 2.1 mg/dL Normal 1.7-2.3 [facility] Comment on above: Order Comment: Speci men Type: BLOOD SPECIMENOrdering Facility: [facility] Address: [address] [place] [address] Performed By: #### 1 9123-9, 82287-4 ####[facility] LABCLIA [id number] [address] OF [facility] NURSING PROGon 11-21-2023 NURSING PROG HNO ID: [id number] Author: DAVID WEBBER RN Service: ? Author Type: Registered Nurse Type: Nursing Progress Note Filed: 11/21/2023 02:48 Note Text: Transfer Note: PATIENT NAME: Cayla Granados Patient Location: [place] [address] [address] Room: [place] [address] Patient transferred into room/unit [facility] in stable condition. Actions taken: Patient belongings with patient. Falls precautions in place. Normal [facility] PT panel Coag (PPP)on 2023 INR Coag (PPP) [Relative time] 1.1 {INR} Normal 0.9-1.3 [facility] Comment on above: Order Comment: Speci men Type: BLOOD SPECIMENOrdering Facility: [facility] Address: [address] [place] [address] Result Comment: Radhika min K Antagonist (VKA) Therapeutic Range: INR 2 to 3 (Target INR of 2.5) Note: For patients treated with VKA drugs, such as warfarin, the [place] [employer] 2012 Guideline recommends a therapeutic INR range of 2 to 3 (target INR of 2.5). This recommendation includes high-risk patients with antiphospholipid syndrome with previous arterial or venous thromboembolism, current-generation mechanical or bioprosthetic aortic heart valve replacement. Note: Patients with mechanical aortic valve replacement and additional risk factors for thromboembolic events (atrial fibrillation, previous thromboembolism, LV dysfunction, hypercoagulable conditions) or an older generation mechanical AVR (i.e., ball in-Cage) or any mechanical MVR should have a INR therapeutic range of 2.5 to 3.5 (target INR of 3). Sara GH, et al. Chest 2012, 141:7S-47S Gt SALEH et al. [facility] 2017, 70: 252-289 Performed By: #### 1 4979-9, 17612-2 ####[facility] LABIA [id number] [place] [address] [place] PT Coag (PPP) [Time] 11.2 s Normal 9.7-13.0 [facility] Comment on above: Order Comment: Speci men Type: BLOOD SPECIMENOrdering Facility: [facility] Address: [address] [place] [address] Performed By: #### 1 4979-9, 57442-2 ####[facility] [id number] [place] [address] [place] Vancomycin [place] SerPl-mCncon 11-21-2023 Vancomycin random [Mass/Vol] 23.1 ug/mL High 10.0-20.0 [facility] Comment on above: Order Comment: Speci men Type: BLOOD SPECIMENOrdering Facility: [facility] Address: [address] [place] [address] Result Comment: Refe rence ranges and high/low indicator flags are provided as general guidelines only. The treating physician must determine appropriate target levels/dosing based on the specific clinical situation. Performed By: #### 4 091-5 ####[facility] LABCLIA [id number] [id number] [address] [place] XR CHEST 1V FRONTAL PORTon 0 11-21-2023 XR CHEST 1V FRONTAL PORT * * *Final Report* * * DATE OF EXAM: Nov 21 2023 8:49AM ANTHONY 5376 - XR CHEST 1V FRONTAL PORT / PROCEDURE REASON: Shortness of breath * * * * Physician Interpretation * * * * EXAMINATION: CHEST RADIOGRAPH (PORTABLE SINGLE VIEW AP) Exam Date/Time: 11/21/2023 8:49 AM Clinical History: Shortness of breath MQ: [id number] Comparison: None RESULT: Lines, tubes, and devices: Right IJ catheter terminates in the mid SVC. There is permanent pacemaker with the lead wires in the right atrium and right ventricle. Lungs and pleura: Linear atelectatic or fibrotic strands are seen in both lungs. Vague and reticular opacities are seen in the perihilar and basilar regions suggesting atelectasis with possible superimposed edema or inflammation. There are findings compatible with remote granulomatous infection in the chest. [ ] Pleural thickening or subpleural fat is seen bilaterally, right more than left.. Cardiomediastinal silhouette: Borderline enlarged heart. Thoracic aorta is tortuous. Pulmonary vascular redistribution could be secondary to positioning or mild PVH. Other: . IMPRESSION: See result. Refrigeration Installer: PSCJuan Luis Transcribe Date/Time: Nov 21 2023 11:31A Dictated by : PAOLA ISAAC MD This examination was interpreted and the report reviewed and electronically signed by: PAOLA ISAAC MD on Nov 21 2023 11:34AM EST [id number] Normal [facility] aPTT PPPon 11-21-2023 aPTT Coag (PPP) [Time] 25.8 s Normal 23.0-32.4 [facility] Comment on above: Order Comment: Speci men Type: BLOOD SPECIMENOrdering Facility: [facility] Address: [address] [place] [address] Performed By: #### 1 4979-9, 00689-4 ####[facility] LABCLIA [id number] [address] [address] [place] ABDOMEN/PELVIS W/CONTRAST on 09-03-2023 CT ABDOMEN/PELVIS W/CONTRAST ORIGINAL EXAMINATION: CT OF THE ABDOMEN AND PELVIS WITH CONTRAST 09/01/2023 11:01 am TECHNIQUE: CT of the abdomen and pelvis was performed with the administration of intravenous contrast. Multiplanar reformatted images are provided for review. Automated exposure control, iterative reconstruction, and/or weight based adjustment of the mA/kV was utilized to reduce the radiation dose to as low as reasonably achievable. COMPARISON: July 25, 2023 HISTORY: ORDERING SYSTEM PROVIDED HISTORY: Reason for Exam: cellulitis and abscess FINDINGS: Minor degenerative changes are noted in the spine. No other osseous abnormality seen. There is some extrapleural fat bilaterally at the lung bases, with minimal juxtapleural linear scarring or atelectasis. Liver, spleen, adrenal glands and pancreas are unremarkable. A left midpole renal cyst is present. No other kidney finding. There is upper abdominal streak artifact related to patient body habitus making interpretation difficult. No adenopathy, free air or free fluid seen. The urinary bladder is grossly normal. A small fat containing left inguinal hernia is visible. Mild scattered colonic diverticulosis is present, without diverticulitis. No other GI tract abnormality is visible. Visible portions of the subcutaneous fat and skin are unremarkable. The no other contributory finding. IMPRESSION: No acute abnormality identified on this exam. Mild diverticulosis without diverticulitis. Interpreted by: Epi Ramirez MD Preliminary Report By: Epi Rmairez MD Electronically signed By Epi Ramirez MD Dictated Date: 09/03/2023 10:35:32 AM Prelim Date: 09/03/2023 10:38:24 AM Sign Date: 09/03/2023 10:38:24 AM Ordering Provider: ANIL CUELLAR Normal [facility] [place] .Auto Diffon 07-30-2023 Basophil, Absolute 0.1 10 3/mcL Normal 0.0-0.3 [facility] ([place]) Comment on above: Performed By: #### G FR, ESR, ADIFF, CBC, CMP, ANEU #### [address] [address] Basophils/100 WBC (Bld) 0.8 % Normal 0.0-2.5 [facility] [place] Comment on above: Performed By: #### G FR, ESR, ADIFF, CBC, CMP, ANEU #### [address] [address] Eosinophil, Absolute 0.5 10 3/mcL Normal 0.0-0.7 [facility] ([place]) Comment on above: Performed By: #### G FR, ESR, ADIFF, CBC, CMP, ANEU #### [address] [address] Eosinophils/100 WBC (Bld) 4.3 % Normal 0.0-6.0 [facility] [place] Comment on above: Performed By: #### G FR, ESR, ADIFF, CBC, CMP, ANEU #### [address] [address] Lymphocyte, Absolute 3.2 10 3/mcL Normal 0.9-4.3 [facility] ([place] Comment on above: Performed By: #### G FR, ESR, ADIFF, CBC, CMP, ANEU #### [address] [address] Lymphocytes/100 WBC (Bld) 29.0 % Normal 20.0-40.0 [facility] ([place] Comment on above: Performed By: #### G FR, ESR, ADIFF, CBC, CMP, ANEU #### [address] [address] Monocyte, Absolute 0.7 10 3/mcL Normal 0.1-1.4 [facility] ([place]) Comment on above: Performed By: #### G FR, ESR, ADIFF, CBC, CMP, ANEU #### [address] [address] Monocytes/100 WBC (Bld) 6.4 % Normal 2.0-13.0 [facility] ([place] Comment on above: Performed By: #### G FR, ESR, ADIFF, CBC, CMP, ANEU #### [address] [address] Neutrophils/100 WBC (Bld) 59.5 % Normal 50.0-75.0 [facility] ([place] Comment on above: Performed By: #### G FR, ESR, ADIFF, CBC, CMP, ANEU #### [address] [address] .GFRon 07-30-2023 GFR Non- >60 Normal [facility] ([place] Comment on above: Result Comment: GFR Population mean for , Non- Americans Ages 20-29 = 116 mL/min/1.73 sq.m. Ages 30-39 = 107 mL/min/1.73 sq.m. Ages 40-49 = 99 mL/min/1.73 sq.m. Ages 50-59 = 93 mL/min/1.73 sq.m. Ages 60-69 = 85 mL/min/1.73 sq.m. Ages 70+ = 75 mL/min/1.73 sq.m. Chronic Kidney Disease: Less than 60 mL/min/1.73 square meters End Stage Renal Disease: Less than 15 mL/min/1.73 square meters Performed By: #### G FR, ESR, ADIFF, CBC, CMP, ANEU #### [address] [address] GFR >60 Normal [facility] ([place] Comment on above: Result Comment: GFR Population mean for , Non- Americans Ages 20-29 = 116 mL/min/1.73 sq.m. Ages 30-39 = 107 mL/min/1.73 sq.m. Ages 40-49 = 99 mL/min/1.73 sq.m. Ages 50-59 = 93 mL/min/1.73 sq.m. Ages 60-69 = 85 mL/min/1.73 sq.m. Ages 70+ = 75 mL/min/1.73 sq.m. Chronic Kidney Disease: Less than 60 mL/min/1.73 square meters End Stage Renal Disease: Less than 15 mL/min/1.73 square meters Performed By: #### G FR, ESR, ADIFF, CBC, CMP, ANEU #### [address] [address] .NEUABSon 07-30-2023 Neutrophil, Absolute 6.5 10 3/mcL Normal 2.3-8.1 [facility] ([place] Comment on above: Performed By: #### G FR, ESR, ADIFF, CBC, CMP, ANEU #### [place] [address] CBCon 07-30-2023 Erythrocyte distribution width (RBC) [Ratio] 25.4 % High 11.5-15.5 [facility] ([place] Comment on above: Performed By: #### G FR, ESR, ADIFF, CBC, CMP, ANEU #### [place] [address] Hematocrit (Bld) [Volume fraction] 33.7 % Low 40.0-52.0 [facility] ([place] Comment on above: Performed By: #### G FR, ESR, ADIFF, CBC, CMP, ANEU #### [place] [address] Hgb 10.3 G/dL Low 13.0-17.5 [facility] ([place] Comment on above: Performed By: #### G FR, ESR, ADIFF, CBC, CMP, ANEU #### [place] [address] MCH (RBC) [Entitic mass] 24.1 pg Low 27.0-33.0 [facility] ([place] Comment on above: Performed By: #### G FR, ESR, ADIFF, CBC, CMP, ANEU #### [place] [address] MCHC 30.5 G/dL Low 32.0-36.0 [facility] ([place] Comment on above: Performed By: #### G FR, ESR, ADIFF, CBC, CMP, ANEU #### [place] [address] MCV (RBC) [Entitic vol] 79.1 fL Low 81.0-100.0 [facility] ([place] Comment on above: Performed By: #### G FR, ESR, ADIFF, CBC, CMP, ANEU #### [place] [address] Platelet 262 10 3/mcL Normal 150-450 [facility] ([place] Comment on above: Performed By: #### G FR, ESR, ADIFF, CBC, CMP, ANEU #### [place] [address] Platelet mean volume (Bld) [Entitic vol] 6.7 fL Normal 6.4-10.5 [facility] ([place] Comment on above: Performed By: #### G FR, ESR, ADIFF, CBC, CMP, ANEU #### [place] [address] RBC 4.26 10 6/mcL Low 4.50-6.00 [facility] ([place] Comment on above: Performed By: #### G FR, ESR, ADIFF, CBC, CMP, ANEU #### [place] [address] WBC 10.9 10 3/mcL High 4.5-10.8 [facility] ([place] Comment on above: Performed By: #### G FR, ESR, ADIFF, CBC, CMP, ANEU #### [place] [address] CMPon 07-30-2023 Albumin Level 2.5 G/dL Low 3.2-4.8 [facility] ([place] Comment on above: Performed By: #### G FR, ESR, ADIFF, CBC, CMP, ANEU #### [place] [address] Albumin/Globulin [Mass ratio] 0.6 {ratio} Low 0.9-1.6 [facility] ([place] Comment on above: Performed By: #### G FR, ESR, ADIFF, CBC, CMP, ANEU #### [place] [address] ALP [Catalytic activity/Vol] 116 U/L Normal 38-126 [facility] ([place] Comment on above: Performed By: #### G FR, ESR, ADIFF, CBC, CMP, ANEU #### [place] [address] ALT [Catalytic activity/Vol] 17 U/L Normal 12-55 [facility] ([place] Comment on above: Performed By: #### G FR, ESR, ADIFF, CBC, CMP, ANEU #### [address] [address] AST [Catalytic activity/Vol] 15 U/L Normal 8-34 [facility] ([place] Comment on above: Performed By: #### G FR, ESR, ADIFF, CBC, CMP, ANEU #### [address] [address] Bili Total 0.30 mg/dL Normal 0.20-1.20 [facility] ([place] Comment on above: Result Comment: Use of this assay is not recommended for patients undergoing treatment with eltrombopag due to the potential for falsely elevated results. Performed By: #### G FR, ESR, ADIFF, CBC, CMP, ANEU #### [place] [id number] BUN/Creatinine Ratio 16.9 ratio Normal 10.0-22.0 [facility] ([place] Comment on above: Performed By: #### G FR, ESR, ADIFF, CBC, CMP, ANEU #### [address] [address] Calcium [Mass/Vol] 8.9 mg/dL Normal 8.7-10.4 [facility] ([place]) Comment on above: Performed By: #### G FR, ESR, ADIFF, CBC, CMP, ANEU #### [address] [address] Chloride [Moles/Vol] 105 mmol/L Normal 98-110 [facility] ([place] Comment on above: Performed By: #### G FR, ESR, ADIFF, CBC, CMP, ANEU #### [address] [address] CO2 [Moles/Vol] 35 mmol/L High 22-32 [facility] ([place] Comment on above: Performed By: #### G FR, ESR, ADIFF, CBC, CMP, ANEU #### [address] [address] Creatinine [Mass/Vol] 0.83 mg/dL Normal 0.60-1.40 [facility] ([place]) Comment on above: Performed By: #### G FR, ESR, ADIFF, CBC, CMP, ANEU #### [address] [address] Electrolyte Balance 1.0 mEq/L Low 4.0-15.0 [facility] ([place]) Comment on above: Performed By: #### G FR, ESR, ADIFF, CBC, CMP, ANEU #### [address] [address] Globulin 3.9 G/dL High 1.5-3.8 [facility] ([place] Comment on above: Performed By: #### G FR, ESR, ADIFF, CBC, CMP, ANEU #### [address] [address] Glucose [Mass/Vol] 119 mg/dL High 70-110 [facility] ([place] Comment on above: Performed By: #### G FR, ESR, ADIFF, CBC, CMP, ANEU #### [place] [id number] Potassium [Moles/Vol] 4.1 mmol/L Normal 3.5-5.0 [facility] ([place] Comment on above: Performed By: #### G FR, ESR, ADIFF, CBC, CMP, ANEU #### [address] [address] Sodium [Moles/Vol] 141 mmol/L Normal 136-145 [facility] ([place] Comment on above: Performed By: #### G FR, ESR, ADIFF, CBC, CMP, ANEU #### [place] [id number] Total Protein 6.4 G/dL Normal 5.7-8.2 [facility] ([place] Comment on above: Result Comment: No te - New Reference Range in effect 20 Performed By: #### G FR, ESR, ADIFF, CBC, CMP, ANEU #### [address] [address] Urea nitrogen [Mass/Vol] 14.0 mg/dL Normal 8.0-22.0 [facility] ([place] Comment on above: Performed By: #### G FR, ESR, ADIFF, CBC, CMP, ANEU #### [address] [address] ESRon 07-30-2023 Erythrocyte Sed Rate 75 mm/hr High 0-20 [facility] ([place] Comment on above: Performed By: #### G FR, ESR, ADIFF, CBC, CMP, ANEU #### [address] [address] .Auto Diffon 07-29-2023 Basophil, Absolute 0.1 10 3/mcL Normal 0.0-0.3 [facility] ([place] Comment on above: Performed By: #### R F, MG, LPA, FERR, ADIFF, LIPID, ANEU, CBC, FES, GFR, CMP #### [place] [address] Basophils/100 WBC (Bld) 0.6 % Normal 0.0-2.5 [facility] ([place] Comment on above: Performed By: #### R F, MG, LPA, FERR, ADIFF, LIPID, ANEU, CBC, FES, GFR, CMP #### [place] [address] Eosinophil, Absolute 0.3 10 3/mcL Normal 0.0-0.7 [facility] ([place] Comment on above: Performed By: #### R F, MG, LPA, FERR, ADIFF, LIPID, ANEU, CBC, FES, GFR, CMP #### [address] [address] Eosinophils/100 WBC (Bld) 3.3 % Normal 0.0-6.0 [facility] ([place] Comment on above: Performed By: #### R F, MG, LPA, FERR, ADIFF, LIPID, ANEU, CBC, FES, GFR, CMP #### [address] [address] Lymphocyte, Absolute 2.0 10 3/mcL Normal 0.9-4.3 [facility] ([place] Comment on above: Performed By: #### R F, MG, LPA, FERR, ADIFF, LIPID, ANEU, CBC, FES, GFR, CMP #### [address] [address] Lymphocytes/100 WBC (Bld) 21.1 % Normal 20.0-40.0 [facility] ([place] Comment on above: Performed By: #### R F, MG, LPA, FERR, ADIFF, LIPID, ANEU, CBC, FES, GFR, CMP #### [address] [address] Monocyte, Absolute 0.5 10 3/mcL Normal 0.1-1.4 [facility] ([place] Comment on above: Performed By: #### R F, MG, LPA, FERR, ADIFF, LIPID, ANEU, CBC, FES, GFR, CMP #### [address] [address] Monocytes/100 WBC (Bld) 5.1 % Normal 2.0-13.0 [facility] ([place] Comment on above: Performed By: #### R F, MG, LPA, FERR, ADIFF, LIPID, ANEU, CBC, FES, GFR, CMP #### [address] [address] Neutrophils/100 WBC (Bld) 69.9 % Normal 50.0-75.0 [facility] ([place] Comment on above: Performed By: #### R F, MG, LPA, FERR, ADIFF, LIPID, ANEU, CBC, FES, GFR, CMP #### [address] [address] .Morphon 07-29-2023 Anisocytosis Ql (Bld) 2+ Normal [facility] ([place] Comment on above: Performed By: #### R F, MG, LPA, FERR, ADIFF, LIPID, ANEU, CBC, FES, GFR, CMP #### [address] [address] Microcytosis 1+ Normal [facility] ([place] Comment on above: Performed By: #### R F, MG, LPA, FERR, ADIFF, LIPID, ANEU, CBC, FES, GFR, CMP #### [address] [address] Ovalocytes 1+ Normal [facility] ([place] Comment on above: Performed By: #### R F, MG, LPA, FERR, ADIFF, LIPID, ANEU, CBC, FES, GFR, CMP #### [place] [address] Platelet Estimate Normal Normal [facility] ([place] Comment on above: Performed By: #### R F, MG, LPA, FERR, ADIFF, LIPID, ANEU, CBC, FES, GFR, CMP #### [place] [address] Poik 1+ Normal [facility] ([place] Comment on above: Performed By: #### R F, MG, LPA, FERR, ADIFF, LIPID, ANEU, CBC, FES, GFR, CMP #### [place] [address] .NEUABSon 07-29-2023 Neutrophil, Absolute 6.7 10 3/mcL Normal 2.3-8.1 [facility] ([place] Comment on above: Performed By: #### R F, MG, LPA, FERR, ADIFF, LIPID, ANEU, CBC, FES, GFR, CMP #### [place] [address] CBCon 07-29-2023 Erythrocyte distribution width (RBC) [Ratio] 25.0 % High 11.5-15.5 [facility] ([place] Comment on above: Performed By: #### R F, MG, LPA, FERR, ADIFF, LIPID, ANEU, CBC, FES, GFR, CMP #### [place] [address] Hematocrit (Bld) [Volume fraction] 33.2 % Low 40.0-52.0 [facility] ([place] Comment on above: Performed By: #### R F, MG, LPA, FERR, ADIFF, LIPID, ANEU, CBC, FES, GFR, CMP #### [place] [address] Hgb 10.0 G/dL Low 13.0-17.5 [facility] ([place] Comment on above: Performed By: #### R F, MG, LPA, FERR, ADIFF, LIPID, ANEU, CBC, FES, GFR, CMP #### [place] [address] MCH (RBC) [Entitic mass] 24.0 pg Low 27.0-33.0 [facility] ([place] Comment on above: Performed By: #### R F, MG, LPA, FERR, ADIFF, LIPID, ANEU, CBC, FES, GFR, CMP #### [place] [address] MCHC 30.1 G/dL Low 32.0-36.0 [facility] [place] Comment on above: Performed By: #### R F, MG, LPA, FERR, ADIFF, LIPID, ANEU, CBC, FES, GFR, CMP #### [place] [address] MCV (RBC) [Entitic vol] 79.6 fL Low 81.0-100.0 [facility] ([place] Comment on above: Performed By: #### R F, MG, LPA, FERR, ADIFF, LIPID, ANEU, CBC, FES, GFR, CMP #### [place] [address] Platelet 250 10 3/mcL Normal 150-450 [facility] ([place] Comment on above: Performed By: #### R F, MG, LPA, FERR, ADIFF, LIPID, ANEU, CBC, FES, GFR, CMP #### [place] [address] Platelet mean volume (Bld) [Entitic vol] 7.2 fL Normal 6.4-10.5 [facility] ([place] Comment on above: Performed By: #### R F, MG, LPA, FERR, ADIFF, LIPID, ANEU, CBC, FES, GFR, CMP #### [place] [address] RBC 4.16 10 6/mcL Low 4.50-6.00 [facility] ([place] Comment on above: Performed By: #### R F, MG, LPA, FERR, ADIFF, LIPID, ANEU, CBC, FES, GFR, CMP #### [place] [address] WBC 9.6 10 3/mcL Normal 4.5-10.8 [facility] ([place] Comment on above: Performed By: #### R F, MG, LPA, FERR, ADIFF, LIPID, ANEU, CBC, FES, GFR, CMP #### [place] [id number] LABORATORYOrdered By: SYSTEM SYSTEM on 07-29-2023 Anisocytosis Ql (Bld) 2+ *NA* (07/29/23 9:09 AM) Invalid Interpretation Code AH Workflow SS Basophils (Bld) [#/Vol] 0.1 103/mcL Normal 0.0 - 0.3 10^3/mcL AH Workflow SS Basophils/100 WBC (Bld) 0.6 % Normal 0.0 - 2.5 % AH Workflow SS Eosinophils (Bld) [#/Vol] 0.3 103/mcL Normal 0.0 - 0.7 10^3/mcL AH Workflow SS Eosinophils/100 WBC (Bld) 3.3 % Normal 0.0 - 6.0 % AH Workflow SS Erythrocyte distribution width (RBC) [Ratio] 25.0 % High 11.5 - 15.5 % AH Workflow SS Hematocrit (Bld) [Volume fraction] 33.2 % Low 40.0 - 52.0 % AH Workflow SS Hemoglobin (Bld) [Mass/Vol] 10.0 G/dL Low 13.0 - 17.5 G/dL AH Workflow SS Lymphocytes (Bld) [#/Vol] 2.0 103/mcL Normal 0.9 - 4.3 10^3/mcL AH Workflow SS Lymphocytes/100 WBC (Bld) 21.1 % Normal 20.0 - 40.0 % AH Workflow SS MCH (RBC) [Entitic mass] 24.0 pg Low 27.0 - 33.0 pg AH Workflow SS MCHC 30.1 G/dL Low 32.0 - 36.0 G/dL AH Workflow SS MCV (RBC) [Entitic vol] 79.6 fL Low 81.0 - 100.0 fL AH Workflow SS Microcytes Ql (Bld) 1+ *NA* (07/29/23 9:09 AM) Invalid Interpretation Code AH Workflow SS Monocytes (Bld) [#/Vol] 0.5 103/mcL Normal 0.1 - 1.4 10^3/mcL AH Workflow SS Monocytes/100 WBC (Bld) 5.1 % Normal 2.0 - 13.0 % AH Workflow SS Neutrophils (Bld) [#/Vol] 6.7 103/mcL Normal 2.3 - 8.1 10^3/mcL AH Workflow SS Neutrophils/100 WBC (Bld) 69.9 % Normal 50.0 - 75.0 % AH Workflow SS Ovalocytes LM Ql (Bld) 1+ *NA* (07/29/23 9:09 AM) Invalid Interpretation Code AH Workflow SS Platelet mean volume (Bld) [Entitic vol] 7.2 fL Normal 6.4 - 10.5 fL AH Workflow SS Platelets (Bld) [#/Vol] 250 103/mcL Normal 150 - 450 10^3/mcL AH Workflow SS Platelets LM Ql (Bld) Normal *NA* (07/29/23 9:09 AM) Invalid Interpretation Code AH Workflow SS Poikilocytosis LM Ql (Bld) 1+ *NA* (07/29/23 9:09 AM) Invalid Interpretation Code Workflow SS RBC (Bld) [#/Vol] 4.16 106/mcL Low 4.50 - 6.0 0 10^6/mcL AH Workflow SS WBC (Bld) [#/Vol] 9.6 103/mcL Normal 4.5 - 10.8 10^3/mcL Workflow SS .Auto Diffon 07-27-2023 Basophil, Absolute 0.1 10 3/mcL Normal 0.0-0.3 [facility] ([place] Comment on above: Performed By: #### G FR, ESR, ADIFF, CBC, CMP, ANEU #### [address] [address] Basophils/100 WBC (Bld) 0.5 % Normal 0.0-2.5 [facility] ([place] Comment on above: Performed By: #### G FR, ESR, ADIFF, CBC, CMP, ANEU #### [address] [address] Eosinophil, Absolute 0.2 10 3/mcL Normal 0.0-0.7 [facility] ([place] Comment on above: Performed By: #### G FR, ESR, ADIFF, CBC, CMP, ANEU #### [address] [address] Eosinophils/100 WBC (Bld) 1.5 % Normal 0.0-6.0 [facility] ([place] Comment on above: Performed By: #### G FR, ESR, ADIFF, CBC, CMP, ANEU #### [address] [address] Lymphocyte, Absolute 2.5 10 3/mcL Normal 0.9-4.3 [facility] ([place] Comment on above: Performed By: #### G FR, ESR, ADIFF, CBC, CMP, ANEU #### [address] [address] Lymphocytes/100 WBC (Bld) 19.5 % Low 20.0-40.0 [facility] ([place] Comment on above: Performed By: #### G FR, ESR, ADIFF, CBC, CMP, ANEU #### [address] [address] Monocyte, Absolute 0.7 10 3/mcL Normal 0.1-1.4 [facility] ([place] Comment on above: Performed By: #### G FR, ESR, ADIFF, CBC, CMP, ANEU #### [address] [address] Monocytes/100 WBC (Bld) 5.5 % Normal 2.0-13.0 [facility] ([place] Comment on above: Performed By: #### G FR, ESR, ADIFF, CBC, CMP, ANEU #### [address] [address] Neutrophils/100 WBC (Bld) 73.0 % Normal 50.0-75.0 [facility] ([place]) Comment on above: Performed By: #### G FR, ESR, ADIFF, CBC, CMP, ANEU #### [address] [address] .NEUABSon 07-27-2023 Neutrophil, Absolute 9.4 10 3/mcL High 2.3-8.1 [facility] ([place] Comment on above: Performed By: #### G FR, ESR, ADIFF, CBC, CMP, ANEU #### [address] [address] CBCon 07-27-2023 Erythrocyte distribution width (RBC) [Ratio] 25.4 % High 11.5-15.5 [facility] ([place] Comment on above: Performed By: #### G FR, ESR, ADIFF, CBC, CMP, ANEU #### [place] [address] Hematocrit (Bld) [Volume fraction] 34.8 % Low 40.0-52.0 [facility] [place] Comment on above: Performed By: #### G FR, ESR, ADIFF, CBC, CMP, ANEU #### [place] [address] Hgb 10.3 G/dL Low 13.0-17.5 [facility] ([place] Comment on above: Performed By: #### G FR, ESR, ADIFF, CBC, CMP, ANEU #### [place] [address] MCH (RBC) [Entitic mass] 23.5 pg Low 27.0-33.0 [facility] ([place] Comment on above: Performed By: #### G FR, ESR, ADIFF, CBC, CMP, ANEU #### [place] [address] MCHC 29.5 G/dL Low 32.0-36.0 [facility] ([place] Comment on above: Performed By: #### G FR, ESR, ADIFF, CBC, CMP, ANEU #### [place] [address] MCV (RBC) [Entitic vol] 79.7 fL Low 81.0-100.0 [facility] [place] Comment on above: Performed By: #### G FR, ESR, ADIFF, CBC, CMP, ANEU #### [place] [address] Platelet 279 10 3/mcL Normal 150-450 [facility] ([place] Comment on above: Performed By: #### G FR, ESR, ADIFF, CBC, CMP, ANEU #### [facility] [address] [place], [place] [address] Platelet mean volume (Bld) [Entitic vol] 7.6 fL Normal 6.4-10.5 [facility] ([place] Comment on above: Performed By: #### G FR, ESR, ADIFF, CBC, CMP, ANEU #### [address] [address] RBC 4.36 10 6/mcL Low 4.50-6.00 [facility] ([place] Comment on above: Performed By: #### G FR, ESR, ADIFF, CBC, CMP, ANEU #### [address] [address] WBC 12.9 10 3/mcL High 4.5-10.8 [facility] ([place] Comment on above: Performed By: #### G FR, ESR, ADIFF, CBC, CMP, ANEU #### [address] [address] LABORATORYOrdered By: SYSTEM SYSTEM on 07-27-2023 Basophils (Bld) [#/Vol] 0.1 103/mcL Normal 0.0 - 0.3 10^3/mcL AH Workflow SS Basophils/100 WBC (Bld) 0.5 % Normal 0.0 - 2.5 % AH Workflow SS Eosinophils (Bld) [#/Vol] 0.2 103/mcL Normal 0.0 - 0.7 10^3/mcL Workflow SS Eosinophils/100 WBC (Bld) 1.5 % Normal 0.0 - 6.0 % AH Workflow SS Erythrocyte distribution width (RBC) [Ratio] 25.4 % High 11.5 - 15.5 % AH Workflow SS Hematocrit (Bld) [Volume fraction] 34.8 % Low 40.0 - 52.0 % AH Workflow SS Hemoglobin (Bld) [Mass/Vol] 10.3 G/dL Low 13.0 - 17.5 G/dL AH Workflow SS Lymphocytes (Bld) [#/Vol] 2.5 103/mcL Normal 0.9 - 4.3 10^3/mcL Workflow SS Lymphocytes/100 WBC (Bld) 19.5 % Low 20.0 - 40.0 % AH Workflow SS MCH (RBC) [Entitic mass] 23.5 pg Low 27.0 - 33.0 pg AH Workflow SS MCHC 29.5 G/dL Low 32.0 - 36.0 G/dL AH Workflow SS MCV (RBC) [Entitic vol] 79.7 fL Low 81.0 - 100.0 fL AH Workflow SS Monocytes (Bld) [#/Vol] 0.7 103/mcL Normal 0.1 - 1.4 10^3/mcL AH Workflow SS Monocytes/100 WBC (Bld) 5.5 % Normal 2.0 - 13.0 % AH Workflow SS Neutrophils (Bld) [#/Vol] 9.4 103/mcL High 2.3 - 8.1 10^3/mcL AH Workflow SS Neutrophils/100 WBC (Bld) 73.0 % Normal 50.0 - 75.0 % AH Workflow SS Platelet mean volume (Bld) [Entitic vol] 7.6 fL Normal 6.4 - 10.5 fL AH Workflow SS Platelets (Bld) [#/Vol] 279 103/mcL Normal 150 - 450 10^3/mcL AH Workflow SS RBC (Bld) [#/Vol] 4.36 106/mcL Low 4.50 - 6.0 0 10^6/mcL Workflow SS WBC (Bld) [#/Vol] 12.9 103/mcL High 4.5 - 10.8 10^3/mcL AH Workflow SS .Auto Diffon 07-25-2023 Basophil, Absolute 0.1 10 3/mcL Normal 0.0-0.3 [facility] ([place] Comment on above: Performed By: #### R F, MG, LPA, FERR, ADIFF, LIPID, ANEU, CBC, FES, GFR, CMP #### [address] [address] Basophils/100 WBC (Bld) 0.3 % Normal 0.0-2.5 [facility] ([place] Comment on above: Performed By: #### R F, MG, LPA, FERR, ADIFF, LIPID, ANEU, CBC, FES, GFR, CMP #### [address] [address] Eosinophil, Absolute 0.2 10 3/mcL Normal 0.0-0.7 [facility] ([place] Comment on above: Performed By: #### R F, MG, LPA, FERR, ADIFF, LIPID, ANEU, CBC, FES, GFR, CMP #### [address] [address] Eosinophils/100 WBC (Bld) 1.1 % Normal 0.0-6.0 [facility] ([place] Comment on above: Performed By: #### R F, MG, LPA, FERR, ADIFF, LIPID, ANEU, CBC, FES, GFR, CMP #### [address] [address] Lymphocyte, Absolute 1.3 10 3/mcL Normal 0.9-4.3 [facility] ([place] Comment on above: Performed By: #### R F, MG, LPA, FERR, ADIFF, LIPID, ANEU, CBC, FES, GFR, CMP #### [address] [address] Lymphocytes/100 WBC (Bld) 8.0 % Low 20.0-40.0 [facility] ([place] Comment on above: Performed By: #### R F, MG, LPA, FERR, ADIFF, LIPID, ANEU, CBC, FES, GFR, CMP #### [address] [address] Monocyte, Absolute 0.8 10 3/mcL Normal 0.1-1.4 [facility] ([place] Comment on above: Performed By: #### R F, MG, LPA, FERR, ADIFF, LIPID, ANEU, CBC, FES, GFR, CMP #### [address] [address] Monocytes/100 WBC (Bld) 4.9 % Normal 2.0-13.0 [facility] ([place] Comment on above: Performed By: #### R F, MG, LPA, FERR, ADIFF, LIPID, ANEU, CBC, FES, GFR, CMP #### [address] [address] Neutrophils/100 WBC (Bld) 85.7 % High 50.0-75.0 [facility] [place] Comment on above: Performed By: #### R F, MG, LPA, FERR, ADIFF, LIPID, ANEU, CBC, FES, GFR, CMP #### [address] [address] .GFRon 12-23-2023 GFR >60 Normal [facility] ([place] Comment on above: Result Comment: GFR Population mean for , Non- Americans Ages 20-29 = 116 mL/min/1.73 sq.m. Ages 30-39 = 107 mL/min/1.73 sq.m. Ages 40-49 = 99 mL/min/1.73 sq.m. Ages 50-59 = 93 mL/min/1.73 sq.m. Ages 60-69 = 85 mL/min/1.73 sq.m. Ages 70+ = 75 mL/min/1.73 sq.m. Chronic Kidney Disease: Less than 60 mL/min/1.73 square meters End Stage Renal Disease: Less than 15 mL/min/1.73 square meters Performed By: #### R F, MG, LPA, FERR, ADIFF, LIPID, ANEU, CBC, FES, GFR, CMP #### [place] [address] GFR Non- >60 Normal [facility] ([place] Comment on above: Result Comment: GFR Population mean for , Non- Americans Ages 20-29 = 116 mL/min/1.73 sq.m. Ages 30-39 = 107 mL/min/1.73 sq.m. Ages 40-49 = 99 mL/min/1.73 sq.m. Ages 50-59 = 93 mL/min/1.73 sq.m. Ages 60-69 = 85 mL/min/1.73 sq.m. Ages 70+ = 75 mL/min/1.73 sq.m. Chronic Kidney Disease: Less than 60 mL/min/1.73 square meters End Stage Renal Disease: Less than 15 mL/min/1.73 square meters Performed By: #### R F, MG, LPA, FERR, ADIFF, LIPID, ANEU, CBC, FES, GFR, CMP #### [place] [id number] .Morphon 07-25-2023 Platelet Clumps Few Normal [facility] ([place]) Comment on above: Performed By: #### R F, MG, LPA, FERR, ADIFF, LIPID, ANEU, CBC, FES, GFR, CMP #### [place] [id number] Platelet Estimate Normal Normal [facility] ([place]) Comment on above: Performed By: #### R F, MG, LPA, FERR, ADIFF, LIPID, ANEU, CBC, FES, GFR, CMP #### [place] [id number] Anisocytosis Ql (Bld) 2+ Normal [facility] ([place]) Comment on above: Performed By: #### R F, MG, LPA, FERR, ADIFF, LIPID, ANEU, CBC, FES, GFR, CMP #### [place] [id number] Hypochrom 1+ Normal [facility] ([place]) Comment on above: Performed By: #### R F, MG, LPA, FERR, ADIFF, LIPID, ANEU, CBC, FES, GFR, CMP #### [place] [id number] Microcytosis 1+ Normal [facility] ([place] Comment on above: Performed By: #### R F, MG, LPA, FERR, ADIFF, LIPID, ANEU, CBC, FES, GFR, CMP #### [place] [id number] Ovalocytes 1+ Normal [facility] ([place]) Comment on above: Performed By: #### R F, MG, LPA, FERR, ADIFF, LIPID, ANEU, CBC, FES, GFR, CMP #### [place] [id number] Poik 1+ Normal [facility] ([place] Comment on above: Performed By: #### R F, MG, LPA, FERR, ADIFF, LIPID, ANEU, CBC, FES, GFR, CMP #### [place] [id number] .NEUABSon 07-25-2023 Neutrophil, Absolute 14.3 10 3/mcL High 2.3-8.1 [facility] Comment on above: Performed By: #### R F, MG, LPA, FERR, ADIFF, LIPID, ANEU, CBC, FES, GFR, CMP #### [address] [id number] AMOXICILLIN+CLAVULANATE:SUSC :PT:ISOLATE:ORDQN:MICon 07-25-2023 Amoxicillin+Clavulanat e MONIKA [Susc] Light Klebsiella pneumoniae ESBL Extended-Spectrum B-Lactamase isolate may be clinically resistant to therapy with Penicillins, Cephalosporinsor Aztreonam despite apparent in vitro susceptibility to some of these agents. Use of Imipenem is currently restricted to Infectious Disease /Intensivists. Please consult Physicians accordingly. Light normal skin arsalan present. Sensitivity testing not indicated. Neisseria gonorrhoeae: Negative [facility] Work Phone: Amoxicillin+Clavulanate MONIKA [Susc]on 07-25-2023 GS 4+ Polymorphonuclear cells Rare Gram Positive Rods Rare Gram Positive Cocci [facility] Work Phone: Klebsiella pneumoniae ESBL Klebsiella pneumoniae ESBL [facility] Work Phone: BMPon 07-25-2023 BUN/Creatinine Ratio 17.2 ratio Normal 10.0-22.0 [facility] ([place] Comment on above: Performed By: #### R F, MG, LPA, FERR, ADIFF, LIPID, ANEU, CBC, FES, GFR, CMP #### [address] [address] Calcium [Mass/Vol] 8.3 mg/dL Low 8.7-10.4 [facility] ([place] Comment on above: Performed By: #### R F, MG, LPA, FERR, ADIFF, LIPID, ANEU, CBC, FES, GFR, CMP #### [address] [address] Chloride [Moles/Vol] 104 mmol/L Normal 98-110 [facility] ([place] Comment on above: Performed By: #### R F, MG, LPA, FERR, ADIFF, LIPID, ANEU, CBC, FES, GFR, CMP #### [address] [address] CO2 [Moles/Vol] 34 mmol/L High 22-32 [facility] ([place] Comment on above: Performed By: #### R F, MG, LPA, FERR, ADIFF, LIPID, ANEU, CBC, FES, GFR, CMP #### [address] [address] Creatinine [Mass/Vol] 0.87 mg/dL Normal 0.60-1.40 [facility] ([place] Comment on above: Performed By: #### R F, MG, LPA, FERR, ADIFF, LIPID, ANEU, CBC, FES, GFR, CMP #### [place] [id number] Electrolyte Balance 0.0 mEq/L Low 4.0-15.0 [facility] ([place] Comment on above: Performed By: #### R F, MG, LPA, FERR, ADIFF, LIPID, ANEU, CBC, FES, GFR, CMP #### [place] [address] Glucose [Mass/Vol] 172 mg/dL High 70-110 [facility] ([place] Comment on above: Performed By: #### R F, MG, LPA, FERR, ADIFF, LIPID, ANEU, CBC, FES, GFR, CMP #### [place] [id number] Potassium [Moles/Vol] 3.9 mmol/L Normal 3.5-5.0 [facility] ([place] Comment on above: Performed By: #### R F, MG, LPA, FERR, ADIFF, LIPID, ANEU, CBC, FES, GFR, CMP #### [place] [id number] Sodium [Moles/Vol] 138 mmol/L Normal 136-145 [facility] ([place] Comment on above: Performed By: #### R F, MG, LPA, FERR, ADIFF, LIPID, ANEU, CBC, FES, GFR, CMP #### [place] [id number] Urea nitrogen [Mass/Vol] 15.0 mg/dL Normal 8.0-22.0 [facility] ([place] Comment on above: Performed By: #### R F, MG, LPA, FERR, ADIFF, LIPID, ANEU, CBC, FES, GFR, CMP #### [address] [address] CBCon 07-25-2023 Erythrocyte distribution width (RBC) [Ratio] 25.3 % High 11.5-15.5 [facility] ([place] Comment on above: Performed By: #### R F, MG, LPA, FERR, ADIFF, LIPID, ANEU, CBC, FES, GFR, CMP #### [place] [address] Hematocrit (Bld) [Volume fraction] 31.8 % Low 40.0-52.0 [facility] ([place] Comment on above: Performed By: #### R F, MG, LPA, FERR, ADIFF, LIPID, ANEU, CBC, FES, GFR, CMP #### [place] [address] Hgb 9.4 G/dL Low 13.0-17.5 [facility] ([place] Comment on above: Performed By: #### R F, MG, LPA, FERR, ADIFF, LIPID, ANEU, CBC, FES, GFR, CMP #### [place] [address] MCH (RBC) [Entitic mass] 23.3 pg Low 27.0-33.0 [facility] ([place] Comment on above: Performed By: #### R F, MG, LPA, FERR, ADIFF, LIPID, ANEU, CBC, FES, GFR, CMP #### [place] [phone] MCHC 29.5 G/dL Low 32.0-36.0 [facility] ([place] Comment on above: Performed By: #### R F, MG, LPA, FERR, ADIFF, LIPID, ANEU, CBC, FES, GFR, CMP #### [place] [phone] MCV (RBC) [Entitic vol] 78.8 fL Low 81.0-100.0 [facility] ([place] Comment on above: Performed By: #### R F, MG, LPA, FERR, ADIFF, LIPID, ANEU, CBC, FES, GFR, CMP #### [place] [address] Platelet 227 10 3/mcL Normal 150-450 [facility] ([place] Comment on above: Performed By: #### R F, MG, LPA, FERR, ADIFF, LIPID, ANEU, CBC, FES, GFR, CMP #### [address] [address] Platelet mean volume (Bld) [Entitic vol] 8.0 fL Normal 6.4-10.5 [facility] ([place] Comment on above: Performed By: #### R F, MG, LPA, FERR, ADIFF, LIPID, ANEU, CBC, FES, GFR, CMP #### [address] [address] RBC 4.04 10 6/mcL Low 4.50-6.00 [facility] ([place] Comment on above: Performed By: #### R F, MG, LPA, FERR, ADIFF, LIPID, ANEU, CBC, FES, GFR, CMP #### [address] [address] WBC 16.7 10 3/mcL High 4.5-10.8 [facility] ([place] Comment on above: Performed By: #### R F, MG, LPA, FERR, ADIFF, LIPID, ANEU, CBC, FES, GFR, CMP #### [address] [address] [address] ABDOMEN/PELVIS W/CONTRAST on 07-25-2023 CT ABDOMEN/PELVIS W/CONTRAST ORIGINAL EXAMINATION: CT OF THE ABDOMEN AND PELVIS WITH CONTRAST 07/25/2023 4:28 pm TECHNIQUE: CT of the abdomen and pelvis was performed with the administration of intravenous contrast. Multiplanar reformatted images are provided for review. Automated exposure control, iterative reconstruction, and/or weight based adjustment of the mA/kV was utilized to reduce the radiation dose to as low as reasonably achievable. COMPARISON: Scrotal and pelvic ultrasound 07/22/2023. HISTORY: ORDERING SYSTEM PROVIDED HISTORY: Reason for Exam: abscess, increase pain, pt c/o swelling and pain in groin area, more so on right side, BEST IMAGES POSSIBLE, REPEATS TAKEN TO INCLUDE ENTIRE AREA OF INTEREST abscess, increase pain FINDINGS: Degraded study secondary to patient body habitus. No pericardial thickening or effusion. No acute process within the visualized lower lungs. Atelectasis and scarring is present. The aorta is nonaneurysmal with minimal atherosclerotic disease. No adenopathy within the abdomen or pelvis. The liver, gallbladder, spleen, pancreas, and bilateral renal glands are unremarkable. Splenic granulomas are noted. Symmetric nephrograms. No hydronephrosis or renal calculi. The bladder is decompressed limiting evaluation. The prostate is normal in size. No pneumoperitoneum or free fluid. The large and small bowel are normal in caliber. The appendix is unremarkable. Tiny sliding hiatal hernia. Bilateral fat containing inguinal hernias. No acute osseous abnormality. Degenerative changes of the spine. There is extensive scrotal swelling with a more localized fluid collection in the right hemiscrotum measuring approximately 6.9 x 3.4 x 3.3 cm (AP x TR x CC). There is a single locule of air favored to be within the gluteal crease rather than subcutaneous (series 2, image 161). IMPRESSION: There is extensive scrotal swelling with a more localized complex fluid collection concerning for an abscess within the right hemiscrotum with measurements as above. A single locule of air is favored to be within the gluteal crease rather than subcutaneous tissues. No acute process within the abdomen. I have reviewed this report and agree with the resident findings and interpretation. Interpreted by: Lucius Jiménez MD Preliminary Report By: Austin Rm Electronically signed By Lucius Jiménez MD Dictated Date: 07/25/2023 4:29:44 PM Prelim Date: 07/25/2023 4:39:25 PM Sign Date: 07/25/2023 4:45:50 PM Ordering Provider: EMMY Ignacio [facility] ([place] LABORATORYOrdered By: SYSTEM SYSTEM on 07-25-2023 Anisocytosis Ql (Bld) 2+ *NA* (07/25/23 4:56 AM) Invalid Interpretation Code AH Workflow SS Basophils (Bld) [#/Vol] 0.1 103/mcL Normal 0.0 - 0.3 10^3/mcL AH Workflow SS Basophils/100 WBC (Bld) 0.3 % Normal 0.0 - 2.5 % AH Workflow SS Calcium [Mass/Vol] 8.3 mg/dL Low 8.7 - 10. 4 mg/dL AH ADM SS Chloride [Moles/Vol] 104 mmol/L Normal 98 - 11 0 mEq/L AH ADM SS CO2 [Moles/Vol] 34 mmol/L High 22 - 32 mEq/L ADM SS Creatinine [Mass/Vol] 0.87 mg/dL Normal 0.60 - 1.40 mg/dL ADM SS Electrolyte Balance 0.0 mEq/L Low 4.0 - 15 .0 mEq/L ADM SS Eosinophils (Bld) [#/Vol] 0.2 103/mcL Normal 0.0 - 0.7 10^3/mcL Workflow SS Eosinophils/100 WBC (Bld) 1.1 % Normal 0.0 - 6.0 % Workflow SS Erythrocyte distribution width (RBC) [Ratio] 25.3 % High 11.5 - 15.5 % Workflow SS GFR/1.73 sq M.predicted among blacks MDRD (S/P/Bld) [Vol rate/Area] ml/min/1.73sqm Invalid Interpretation Code [employer] Chemistry S Comment on above: Interpretive Data: GFR Population mean for , Non- Americans Ages 20-29 = 116 mL/min/1.73 sq.m. Ages 30-39 = 107 mL/min/1.73 sq.m. Ages 40-49 = 99 mL/min/1.73 sq.m. Ages 50-59 = 93 mL/min/1.73 sq.m. Ages 60-69 = 85 mL/min/1.73 sq.m. Ages 70+ = 75 mL/min/1.73 sq.m. Chronic Kidney Disease: Less than 60 mL/min/1.73 square meters End Stage Renal Disease: Less than 15 mL/min/1.73 square meters GFR/1.73 sq M.predicted among non-blacks MDRD (S/P/Bld) [Vol rate/Area] ml/min/1.73sqm Invalid Interpretation Code [employer] Chemistry S Comment on above: Interpretive Data: GFR Population mean for , Non- Americans Ages 20-29 = 116 mL/min/1.73 sq.m. Ages 30-39 = 107 mL/min/1.73 sq.m. Ages 40-49 = 99 mL/min/1.73 sq.m. Ages 50-59 = 93 mL/min/1.73 sq.m. Ages 60-69 = 85 mL/min/1.73 sq.m. Ages 70+ = 75 mL/min/1.73 sq.m. Chronic Kidney Disease: Less than 60 mL/min/1.73 square meters End Stage Renal Disease: Less than 15 mL/min/1.73 square meters Glucose [Mass/Vol] 172 mg/dL High 70 - 110 mg/dL AH ADM SS Hematocrit (Bld) [Volume fraction] 31.8 % Low 40.0 - 52.0 % AH Workflow SS Hemoglobin (Bld) [Mass/Vol] 9.4 G/dL Low 13.0 - 17.5 G/dL AH Workflow SS Hypochromia Ql (Bld) 1+ *NA* (07/25/23 4:56 AM) Invalid Interpretation Code Workflow SS Lymphocytes (Bld) [#/Vol] 1.3 103/mcL Normal 0.9 - 4.3 10^3/mcL AH Workflow SS Lymphocytes/100 WBC (Bld) 8.0 % Low 20.0 - 40.0 % AH Workflow SS MCH (RBC) [Entitic mass] 23.3 pg Low 27.0 - 33.0 pg AH Workflow SS MCHC 29.5 G/dL Low 32.0 - 36.0 G/dL AH Workflow SS MCV (RBC) [Entitic vol] 78.8 fL Low 81.0 - 100.0 fL AH Workflow SS Microcytes Ql (Bld) 1+ *NA* (07/25/23 4:56 AM) Invalid Interpretation Code Workflow SS Monocytes (Bld) [#/Vol] 0.8 103/mcL Normal 0.1 - 1.4 10^3/mcL AH Workflow SS Monocytes/100 WBC (Bld) 4.9 % Normal 2.0 - 13.0 % AH Workflow SS Neutrophils (Bld) [#/Vol] 14.3 103/mcL High 2.3 - 8.1 10^3/mcL Workflow SS Neutrophils/100 WBC (Bld) 85.7 % High 50.0 - 75.0 % AH Workflow SS Ovalocytes LM Ql (Bld) 1+ *NA* (07/25/23 4:56 AM) Invalid Interpretation Code Workflow SS Platelet Clumps Few *NA* (07/25/23 4:56 AM) Invalid Interpretation Code Workflow SS Platelet mean volume (Bld) [Entitic vol] 8.0 fL Normal 6.4 - 10.5 fL AH Workflow SS Platelets (Bld) [#/Vol] 227 103/mcL Normal 150 - 450 10^3/mcL AH Workflow SS Platelets LM Ql (Bld) Normal *NA* (07/25/23 4:56 AM) Invalid Interpretation Code AH Workflow SS Poikilocytosis LM Ql (Bld) 1+ *NA* (07/25/23 4:56 AM) Invalid Interpretation Code AH Workflow SS Potassium [Moles/Vol] 3.9 mmol/L Normal 3.5 - 5.0 mEq/L AH ADM SS RBC (Bld) [#/Vol] 4.04 106/mcL Low 4.50 - 6.0 0 10^6/mcL AH Workflow SS Sodium [Moles/Vol] 138 mmol/L Normal 136 - 145 mEq/L AH ADM SS Urea nitrogen [Mass/Vol] 15.0 mg/dL Normal 8.0 - 22.0 mg/dL ADM SS Urea nitrogen/Creatinine [Mass ratio] 17.2 ratio Normal 10.0 - 22.0 ratio AH ADM SS WBC (Bld) [#/Vol] 16.7 103/mcL High 4.5 - 10.8 10^3/mcL AH Workflow SS .Auto Diffon 07-24-2023 Basophil, Absolute 0.0 10 3/mcL Normal 0.0-0.3 [facility] ([place] Comment on above: Performed By: #### G FR, ESR, ADIFF, CBC, CMP, ANEU #### [address] [address] Basophils/100 WBC (Bld) 0.2 % Normal 0.0-2.5 [facility] ([place] Comment on above: Performed By: #### G FR, ESR, ADIFF, CBC, CMP, ANEU #### [address] [address] Eosinophil, Absolute 0.1 10 3/mcL Normal 0.0-0.7 [facility] ([place]) Comment on above: Performed By: #### G FR, ESR, ADIFF, CBC, CMP, ANEU #### [address] [address] Eosinophils/100 WBC (Bld) 0.6 % Normal 0.0-6.0 [facility] ([place] Comment on above: Performed By: #### G FR, ESR, ADIFF, CBC, CMP, ANEU #### [address] [address] Lymphocyte, Absolute 1.0 10 3/mcL Normal 0.9-4.3 [facility] ([place] Comment on above: Performed By: #### G FR, ESR, ADIFF, CBC, CMP, ANEU #### [address] [address] Lymphocytes/100 WBC (Bld) 6.2 % Low 20.0-40.0 [facility] ([place] Comment on above: Performed By: #### G FR, ESR, ADIFF, CBC, CMP, ANEU #### [address] [address] Monocyte, Absolute 0.7 10 3/mcL Normal 0.1-1.4 [facility] ([place] Comment on above: Performed By: #### G FR, ESR, ADIFF, CBC, CMP, ANEU #### [address] [address] Monocytes/100 WBC (Bld) 4.4 % Normal 2.0-13.0 [facility] ([place] Comment on above: Performed By: #### G FR, ESR, ADIFF, CBC, CMP, ANEU #### [address] [address] Neutrophils/100 WBC (Bld) 88.6 % High 50.0-75.0 [facility] ([place] Comment on above: Performed By: #### G FR, ESR, ADIFF, CBC, CMP, ANEU #### [address] [address] .GFRon 07-24-2023 GFR >60 Normal [facility] ([place] Comment on above: Result Comment: GFR Population mean for , Non- Americans Ages 20-29 = 116 mL/min/1.73 sq.m. Ages 30-39 = 107 mL/min/1.73 sq.m. Ages 40-49 = 99 mL/min/1.73 sq.m. Ages 50-59 = 93 mL/min/1.73 sq.m. Ages 60-69 = 85 mL/min/1.73 sq.m. Ages 70+ = 75 mL/min/1.73 sq.m. Chronic Kidney Disease: Less than 60 mL/min/1.73 square meters End Stage Renal Disease: Less than 15 mL/min/1.73 square meters Performed By: #### G FR, ESR, ADIFF, CBC, CMP, ANEU #### [place] [address] GFR Non- >60 Normal [facility] ([place] Comment on above: Result Comment: GFR Population mean for , Non- Americans Ages 20-29 = 116 mL/min/1.73 sq.m. Ages 30-39 = 107 mL/min/1.73 sq.m. Ages 40-49 = 99 mL/min/1.73 sq.m. Ages 50-59 = 93 mL/min/1.73 sq.m. Ages 60-69 = 85 mL/min/1.73 sq.m. Ages 70+ = 75 mL/min/1.73 sq.m. Chronic Kidney Disease: Less than 60 mL/min/1.73 square meters End Stage Renal Disease: Less than 15 mL/min/1.73 square meters Performed By: #### G FR, ESR, ADIFF, CBC, CMP, ANEU #### [place] [address] .Morphon 07-24-2023 Anisocytosis Ql (Bld) 1+ Normal [facility] ([place] Comment on above: Performed By: #### G FR, ESR, ADIFF, CBC, CMP, ANEU #### [place] [address] Hypochrom 1+ Normal [facility] ([place] Comment on above: Performed By: #### G FR, ESR, ADIFF, CBC, CMP, ANEU #### [place] [address] Microcytosis 1+ Normal [facility] ([place] Comment on above: Performed By: #### G FR, ESR, ADIFF, CBC, CMP, ANEU #### [place] [address] Ovalocytes 1+ Normal [facility] ([place] Comment on above: Performed By: #### G FR, ESR, ADIFF, CBC, CMP, ANEU #### [place] [address] Platelet Clumps Few Normal [facility] ([place] Comment on above: Performed By: #### G FR, ESR, ADIFF, CBC, CMP, ANEU #### [place] [address] Platelet Estimate Normal Normal [facility] ([place] Comment on above: Performed By: #### G FR, ESR, ADIFF, CBC, CMP, ANEU #### [place] [address] Poik 1+ Normal [facility] ([place] Comment on above: Performed By: #### G FR, ESR, ADIFF, CBC, CMP, ANEU #### [place] [address] Stomatocytes 1+ Normal [facility] ([place] Comment on above: Performed By: #### G FR, ESR, ADIFF, CBC, CMP, ANEU #### [place] [address] Target Cell 1+ Normal [facility] ([place] Comment on above: Performed By: #### G FR, ESR, ADIFF, CBC, CMP, ANEU #### [place] [address] .NEUABSon 07-24-2023 Neutrophil, Absolute 14.4 10 3/mcL High 2.3-8.1 [facility] [place] Comment on above: Performed By: #### G FR, ESR, ADIFF, CBC, CMP, ANEU #### [place] [address] BMPon 07-24-2023 BUN/Creatinine Ratio 15.9 ratio Normal 10.0-22.0 [facility] ([place] Comment on above: Performed By: #### G FR, ESR, ADIFF, CBC, CMP, ANEU #### [place] [address] BMPOrdered By: SYSTEM SYSTEM on 07-24-2023 Calcium [Mass/Vol] 8.4 mg/dL Low 8.7-10.4 AH ADM SS Comment on above: Performed By: #### G FR, ESR, ADIFF, CBC, CMP, ANEU #### [address] [address] Chloride [Moles/Vol] 103 mmol/L Normal 98-110 AH A DM SS Comment on above: Performed By: #### G FR, ESR, ADIFF, CBC, CMP, ANEU #### [address] [address] CO2 [Moles/Vol] 32 mmol/L Normal 22-32 AH ADM SS Comment on above: Performed By: #### G FR, ESR, ADIFF, CBC, CMP, ANEU #### [address] [address] Creatinine [Mass/Vol] 1.07 mg/dL Normal 0.60-1.40 AH ADM SS Comment on above: Performed By: #### G FR, ESR, ADIFF, CBC, CMP, ANEU #### [address] [address] Electrolyte Balance 4.0 mEq/L Normal 4.0-15.0 AH AD M SS Comment on above: Performed By: #### G FR, ESR, ADIFF, CBC, CMP, ANEU #### [address] [address] Glucose [Mass/Vol] 146 mg/dL High 70-110 AH ADM SS Comment on above: Performed By: #### G FR, ESR, ADIFF, CBC, CMP, ANEU #### [address] [address] Potassium [Moles/Vol] 4.4 mmol/L Normal 3.5-5.0 AH ADM SS Comment on above: Performed By: #### G FR, ESR, ADIFF, CBC, CMP, ANEU #### [address] [address] Sodium [Moles/Vol] 139 mmol/L Normal 136-145 AH ADM SS Comment on above: Performed By: #### G FR, ESR, ADIFF, CBC, CMP, ANEU #### [place] [address] Urea nitrogen [Mass/Vol] 17.0 mg/dL Normal 8.0-22.0 ADM SS Comment on above: Performed By: #### G FR, ESR, ADIFF, CBC, CMP, ANEU #### [place] [address] CBCon 07-24-2023 Erythrocyte distribution width (RBC) [Ratio] 25.4 % High 11.5-15.5 [facility] ([place] Comment on above: Performed By: #### G FR, ESR, ADIFF, CBC, CMP, ANEU #### [place] [address] Hematocrit (Bld) [Volume fraction] 32.6 % Low 40.0-52.0 [facility] ([place] Comment on above: Performed By: #### G FR, ESR, ADIFF, CBC, CMP, ANEU #### [place] [address] Hgb 9.8 G/dL Low 13.0-17.5 [facility] ([place] Comment on above: Performed By: #### G FR, ESR, ADIFF, CBC, CMP, ANEU #### [place] [address] MCH (RBC) [Entitic mass] 23.6 pg Low 27.0-33.0 [facility] ([place] Comment on above: Performed By: #### G FR, ESR, ADIFF, CBC, CMP, ANEU #### [place] [address] MCHC 30.0 G/dL Low 32.0-36.0 [facility] ([place] Comment on above: Performed By: #### G FR, ESR, ADIFF, CBC, CMP, ANEU #### [place] [address] MCV (RBC) [Entitic vol] 78.6 fL Low 81.0-100.0 [facility] ([place] Comment on above: Performed By: #### G FR, ESR, ADIFF, CBC, CMP, ANEU #### [address] [place], [place] [address] Platelet 225 10 3/mcL Normal 150-450 [facility] ([place] Comment on above: Performed By: #### G FR, ESR, ADIFF, CBC, CMP, ANEU #### [place] [id number] [address] [place] [address] Platelet mean volume (Bld) [Entitic vol] 7.5 fL Normal 6.4-10.5 [facility] ([place] Comment on above: Performed By: #### G FR, ESR, ADIFF, CBC, CMP, ANEU #### [place] [id number] [address] [place] [address] RBC 4.14 10 6/mcL Low 4.50-6.00 [facility] ([place] Comment on above: Performed By: #### G FR, ESR, ADIFF, CBC, CMP, ANEU #### [address] [address] WBC 16.3 10 3/mcL High 4.5-10.8 [facility] ([place] Comment on above: Performed By: #### G FR, ESR, ADIFF, CBC, CMP, ANEU #### [address] [address] LABORATORYOrdered By: SYSTEM SYSTEM on 07-24-2023 Anisocytosis Ql (Bld) 1+ *NA* (07/24/23 4:00 AM) Invalid Interpretation Code Workflow SS GFR/1.73 sq M.predicted among blacks MDRD (S/P/Bld) [Vol rate/Area] ml/min/1.73sqm Invalid Interpretation Code Chemistry S Comment on above: Interpretive Data: GFR Population mean for , Non- Americans Ages 20-29 = 116 mL/min/1.73 sq.m. Ages 30-39 = 107 mL/min/1.73 sq.m. Ages 40-49 = 99 mL/min/1.73 sq.m. Ages 50-59 = 93 mL/min/1.73 sq.m. Ages 60-69 = 85 mL/min/1.73 sq.m. Ages 70+ = 75 mL/min/1.73 sq.m. Chronic Kidney Disease: Less than 60 mL/min/1.73 square meters End Stage Renal Disease: Less than 15 mL/min/1.73 square meters GFR/1.73 sq M.predicted among non-blacks MDRD (S/P/Bld) [Vol rate/Area] ml/min/1.73sqm Invalid Interpretation Code Chemistry S Comment on above: Interpretive Data: GFR Population mean for , Non- Americans Ages 20-29 = 116 mL/min/1.73 sq.m. Ages 30-39 = 107 mL/min/1.73 sq.m. Ages 40-49 = 99 mL/min/1.73 sq.m. Ages 50-59 = 93 mL/min/1.73 sq.m. Ages 60-69 = 85 mL/min/1.73 sq.m. Ages 70+ = 75 mL/min/1.73 sq.m. Chronic Kidney Disease: Less than 60 mL/min/1.73 square meters End Stage Renal Disease: Less than 15 mL/min/1.73 square meters Hypochromia Ql (Bld) 1+ *NA* (07/24/23 4:00 AM) Invalid Interpretation Code AH Workflow SS Microcytes Ql (Bld) 1+ *NA* (07/24/23 4:00 AM) Invalid Interpretation Code AH Workflow SS Ovalocytes LM Ql (Bld) 1+ *NA* (07/24/23 4:00 AM) Invalid Interpretation Code AH Workflow SS Platelet Clumps Few *NA* (07/24/23 4:00 AM) Invalid Interpretation Code AH Workflow SS Platelets LM Ql (Bld) Normal *NA* (07/24/23 4:00 AM) Invalid Interpretation Code AH Workflow SS Poikilocytosis LM Ql (Bld) 1+ *NA* (07/24/23 4:00 AM) Invalid Interpretation Code AH Workflow SS Stomatocytes 1+ *NA* (07/24/23 4:00 AM) Invalid Interpretation Code AH Workflow SS Target Cell 1+ *NA* (07/24/23 4:00 AM) Invalid Interpretation Code AH Workflow SS Urea nitrogen/Creatinine [Mass ratio] 15.9 ratio Normal 10.0 - 22.0 ratio AH ADM SS MGOrdered By: SYSTEM SYSTEM on 07-24-2023 Magnesium [Mass/Vol] 1.9 mg/dL Normal 1.6-2.4 AH A DM SS Comment on above: Performed By: #### G FR, ESR, ADIFF, CBC, CMP, ANEU #### [address] [address] .Auto Diffon 07-23-2023 Basophil, Absolute 0.0 10 3/mcL Normal 0.0-0.3 [facility] ([place] Comment on above: Performed By: #### G FR, ESR, ADIFF, CBC, CMP, ANEU #### [address] [address] Basophils/100 WBC (Bld) 0.2 % Normal 0.0-2.5 [facility] ([place] Comment on above: Performed By: #### G FR, ESR, ADIFF, CBC, CMP, ANEU #### [address] [address] Eosinophil, Absolute 0.2 10 3/mcL Normal 0.0-0.7 [facility] ([place] Comment on above: Performed By: #### G FR, ESR, ADIFF, CBC, CMP, ANEU #### [address] [address] Eosinophils/100 WBC (Bld) 1.0 % Normal 0.0-6.0 [facility] ([place] Comment on above: Performed By: #### G FR, ESR, ADIFF, CBC, CMP, ANEU #### [address] [address] Lymphocyte, Absolute 1.2 10 3/mcL Normal 0.9-4.3 [facility] ([place] Comment on above: Performed By: #### G FR, ESR, ADIFF, CBC, CMP, ANEU #### [address] [address] Lymphocytes/100 WBC (Bld) 5.8 % Low 20.0-40.0 [facility] ([place] Comment on above: Performed By: #### G FR, ESR, ADIFF, CBC, CMP, ANEU #### [address] [address] Monocyte, Absolute 1.0 10 3/mcL Normal 0.1-1.4 [facility] ([place]) Comment on above: Performed By: #### G FR, ESR, ADIFF, CBC, CMP, ANEU #### [address] [address] Monocytes/100 WBC (Bld) 4.7 % Normal 2.0-13.0 [facility] ([place] Comment on above: Performed By: #### G FR, ESR, ADIFF, CBC, CMP, ANEU #### [address] [address] Neutrophils/100 WBC (Bld) 88.3 % High 50.0-75.0 [facility] ([place] Comment on above: Performed By: #### G FR, ESR, ADIFF, CBC, CMP, ANEU #### [address] [address] .GFRon 07-23-2023 GFR >60 Normal [facility] ([place] Comment on above: Result Comment: GFR Population mean for , Non- Americans Ages 20-29 = 116 mL/min/1.73 sq.m. Ages 30-39 = 107 mL/min/1.73 sq.m. Ages 40-49 = 99 mL/min/1.73 sq.m. Ages 50-59 = 93 mL/min/1.73 sq.m. Ages 60-69 = 85 mL/min/1.73 sq.m. Ages 70+ = 75 mL/min/1.73 sq.m. Chronic Kidney Disease: Less than 60 mL/min/1.73 square meters End Stage Renal Disease: Less than 15 mL/min/1.73 square meters Performed By: #### G FR, ESR, ADIFF, CBC, CMP, ANEU #### [address] [address] GFR Non- >60 Normal [facility] ([place]) Comment on above: Result Comment: GFR Population mean for , Non- Americans Ages 20-29 = 116 mL/min/1.73 sq.m. Ages 30-39 = 107 mL/min/1.73 sq.m. Ages 40-49 = 99 mL/min/1.73 sq.m. Ages 50-59 = 93 mL/min/1.73 sq.m. Ages 60-69 = 85 mL/min/1.73 sq.m. Ages 70+ = 75 mL/min/1.73 sq.m. Chronic Kidney Disease: Less than 60 mL/min/1.73 square meters End Stage Renal Disease: Less than 15 mL/min/1.73 square meters Performed By: #### G FR, ESR, ADIFF, CBC, CMP, ANEU #### [place] [address] .Morphon 07-23-2023 Anisocytosis Ql (Bld) 1+ Normal [facility] ([place] Comment on above: Performed By: #### G FR, ESR, ADIFF, CBC, CMP, ANEU #### [place] [address] Hypochrom 1+ Normal [facility] ([place]) Comment on above: Performed By: #### G FR, ESR, ADIFF, CBC, CMP, ANEU #### [place] [address] Microcytosis 1+ Normal [facility] ([place] Comment on above: Performed By: #### G FR, ESR, ADIFF, CBC, CMP, ANEU #### [place] [address] Platelet Clumps Few Normal [facility] ([place] Comment on above: Performed By: #### G FR, ESR, ADIFF, CBC, CMP, ANEU #### [place] [address] Platelet Estimate Normal Normal [facility] ([place] Comment on above: Performed By: #### G FR, ESR, ADIFF, CBC, CMP, ANEU #### [place] [address] .NEUABSon 07-23-2023 Neutrophil, Absolute 18.9 10 3/mcL High 2.3-8.1 [facility] [place] Comment on above: Performed By: #### G FR, ESR, ADIFF, CBC, CMP, ANEU #### [place] [id number] BMPon 07-23-2023 BUN/Creatinine Ratio 13.3 ratio Normal 10.0-22.0 [facility] ([place]) Comment on above: Performed By: #### G FR, ESR, ADIFF, CBC, CMP, ANEU #### [address] [address] Calcium [Mass/Vol] 8.5 mg/dL Low 8.7-10.4 [facility] ([place]) Comment on above: Performed By: #### G FR, ESR, ADIFF, CBC, CMP, ANEU #### [address] [address] Chloride [Moles/Vol] 104 mmol/L Normal 98-110 [facility] ([place] Comment on above: Performed By: #### G FR, ESR, ADIFF, CBC, CMP, ANEU #### [address] [address] CO2 [Moles/Vol] 32 mmol/L Normal 22-32 [facility] ([place] Comment on above: Performed By: #### G FR, ESR, ADIFF, CBC, CMP, ANEU #### [address] [address] Creatinine [Mass/Vol] 1.13 mg/dL Normal 0.60-1.40 [facility] ([place] Comment on above: Performed By: #### G FR, ESR, ADIFF, CBC, CMP, ANEU #### [address] [address] Electrolyte Balance 3.0 mEq/L Low 4.0-15.0 [facility] ([place]) Comment on above: Performed By: #### G FR, ESR, ADIFF, CBC, CMP, ANEU #### [address] [address] Glucose [Mass/Vol] 123 mg/dL High 70-110 [facility] ([place] Comment on above: Performed By: #### G FR, ESR, ADIFF, CBC, CMP, ANEU #### [address] [address] Potassium [Moles/Vol] 4.6 mmol/L Normal 3.5-5.0 [facility] ([place]) Comment on above: Result Comment: Spec imen slightly hemolyzed. Performed By: #### G FR, ESR, ADIFF, CBC, CMP, ANEU #### [place] [address] Sodium [Moles/Vol] 139 mmol/L Normal 136-145 [facility] ([place] Comment on above: Performed By: #### G FR, ESR, ADIFF, CBC, CMP, ANEU #### [place] [address] Urea nitrogen [Mass/Vol] 15.0 mg/dL Normal 8.0-22.0 [facility] ([place] Comment on above: Performed By: #### G FR, ESR, ADIFF, CBC, CMP, ANEU #### [place] [address] CBCon 07-23-2023 Erythrocyte distribution width (RBC) [Ratio] 25.0 % High 11.5-15.5 [facility] ([place] Comment on above: Performed By: #### G FR, ESR, ADIFF, CBC, CMP, ANEU #### [place] [address] Hematocrit (Bld) [Volume fraction] 35.2 % Low 40.0-52.0 [facility] ([place] Comment on above: Performed By: #### G FR, ESR, ADIFF, CBC, CMP, ANEU #### [place] [address] Hgb 10.5 G/dL Low 13.0-17.5 [facility] ([place] Comment on above: Performed By: #### G FR, ESR, ADIFF, CBC, CMP, ANEU #### [place] [address] MCH (RBC) [Entitic mass] 23.2 pg Low 27.0-33.0 [facility] ([place] Comment on above: Performed By: #### G FR, ESR, ADIFF, CBC, CMP, ANEU #### [place] [address] MCHC 29.7 G/dL Low 32.0-36.0 [facility] ([place] Comment on above: Performed By: #### G FR, ESR, ADIFF, CBC, CMP, ANEU #### [place] [address] MCV (RBC) [Entitic vol] 78.1 fL Low 81.0-100.0 [facility] ([place] Comment on above: Performed By: #### G FR, ESR, ADIFF, CBC, CMP, ANEU #### [place] [address] Platelet 242 10 3/mcL Normal 150-450 [facility] ([place] Comment on above: Performed By: #### G FR, ESR, ADIFF, CBC, CMP, ANEU #### [place] [address] Platelet mean volume (Bld) [Entitic vol] 7.6 fL Normal 6.4-10.5 [facility] ([place] Comment on above: Performed By: #### G FR, ESR, ADIFF, CBC, CMP, ANEU #### [place] [address] RBC 4.51 10 6/mcL Normal 4.50-6.00 [facility] ([place] Comment on above: Performed By: #### G FR, ESR, ADIFF, CBC, CMP, ANEU #### [place] [address] WBC 21.4 10 3/mcL High 4.5-10.8 [facility] ([place] Comment on above: Performed By: #### G FR, ESR, ADIFF, CBC, CMP, ANEU #### [place] [address] CRPon 07-23-2023 C-Reactive Protein 28.3 mg/dL High 0.0-1.0 [facility] ([place]) Comment on above: Result Comment: No te - New Reference Range in effect 20 Performed By: #### G FR, ESR, ADIFF, CBC, CMP, ANEU #### [place] [address] ESRon 07-23-2023 Erythrocyte Sed Rate >130 High 0-20 [facility] ([place]) Comment on above: Order Comment: QNS Performed By: #### G FR, ESR, ADIFF, CBC, CMP, ANEU #### [place] [address] LABORATORYOrdered By: SYSTEM SYSTEM on 07-23-2023 Calcium [Mass/Vol] 8.5 mg/dL Low 8.7 - 10. 4 mg/dL AH ADM SS Chloride [Moles/Vol] 104 mmol/L Normal 98 - 11 0 mEq/L AH ADM SS CO2 [Moles/Vol] 32 mmol/L Normal 22 - 32 mEq/L AH ADM SS Creatinine [Mass/Vol] 1.13 mg/dL Normal 0.60 - 1.40 mg/dL AH ADM SS CRP [Mass/Vol] 28.3 mg/dL High 0.0 - 1.0 mg/dL AH ADM SS Comment on above: Interpretive Data: * *Note - New Reference Range in effect 20 Electrolyte Balance 3.0 mEq/L Low 4.0 - 15 .0 mEq/L AH ADM SS GFR/1.73 sq M.predicted among blacks MDRD (S/P/Bld) [Vol rate/Area] ml/min/1.73sqm Invalid Interpretation Code [employer] Chemistry S Comment on above: Interpretive Data: GFR Population mean for , Non- Americans Ages 20-29 = 116 mL/min/1.73 sq.m. Ages 30-39 = 107 mL/min/1.73 sq.m. Ages 40-49 = 99 mL/min/1.73 sq.m. Ages 50-59 = 93 mL/min/1.73 sq.m. Ages 60-69 = 85 mL/min/1.73 sq.m. Ages 70+ = 75 mL/min/1.73 sq.m. Chronic Kidney Disease: Less than 60 mL/min/1.73 square meters End Stage Renal Disease: Less than 15 mL/min/1.73 square meters GFR/1.73 sq M.predicted among non-blacks MDRD (S/P/Bld) [Vol rate/Area] ml/min/1.73sqm Invalid Interpretation Code [employer] Chemistry S Comment on above: Interpretive Data: GFR Population mean for , Non- Americans Ages 20-29 = 116 mL/min/1.73 sq.m. Ages 30-39 = 107 mL/min/1.73 sq.m. Ages 40-49 = 99 mL/min/1.73 sq.m. Ages 50-59 = 93 mL/min/1.73 sq.m. Ages 60-69 = 85 mL/min/1.73 sq.m. Ages 70+ = 75 mL/min/1.73 sq.m. Chronic Kidney Disease: Less than 60 mL/min/1.73 square meters End Stage Renal Disease: Less than 15 mL/min/1.73 square meters Glucose [Mass/Vol] 123 mg/dL High 70 - 110 mg/dL ADM SS Hypochromia Ql (Bld) 1+ *NA* (07/23/23 5:49 PM) Invalid Interpretation Code AH Workflow SS Magnesium [Mass/Vol] 1.9 mg/dL Normal 1.6 - 2 .4 mg/dL ADM SS Platelet Clumps Few *NA* (07/23/23 5:49 PM) Invalid Interpretation Code AH Workflow SS Potassium [Moles/Vol] 4.6 mmol/L Normal 3.5 - 5.0 mEq/L ADM SS Comment on above: Result Comment: Spec imen slightly hemolyzed. Sodium [Moles/Vol] 139 mmol/L Normal 136 - 145 mEq/L ADM SS Urea nitrogen [Mass/Vol] 15.0 mg/dL Normal 8.0 - 22.0 mg/dL ADM SS Urea nitrogen/Creatinine [Mass ratio] 13.3 ratio Normal 10.0 - 22.0 ratio ADM SS Troponin I.cardiac DL <= 0.01 ng/mL [Mass/Vol] 18.74 ng/L Normal 0.00 - 54.00 ng/L AH ADM SS LABORATORYOrdered By: Marvin Garza on 07-23-2023 ESR 15 minute reading (Bld) [Velocity] mm/hr High 0 - 20 mm/hr AH Auto Heme SS LABORATORYOrdered By: Deanna Garcia on 07-23-2023 Lactate [Moles/Vol] 1.0 mmol/L Normal 0.2 - 2. 0 mmol/L Auto Chem SS LABORATORYOrdered By: Marianne Rhoades on 12-21-2023 PT Coag (PPP) [Time] 12.2 s Normal 9.0 - 1 4.2 seconds [facility] Comment on above: Interpretive Data: E ffective 02/15/08, Protime results may be affected by some antibiotics (i.e. Ciprofloxacin, Azithromycin, Bactrim) which may potentiate the action of oral anticoagulants, with further increases in Protime/INR. PT International Ratio 1.1 ratio Invalid Interpretation Code [facility] Comment on above: Interpretive Data: [place] [employer] (CHEST, 1991, 102:[id number]) recommended therapeutic range for oral anticoagulant therapy is: LOW RISK: Prophylaxis of venous thrombosis INR: 2.0-3.0 Treatment of pulmonary embolism 2.0-3.0 Prevention of systemic embolism 2.0-3.0 HIGH RISK: Mechanical prosthetic valves 2.5-3.5 LACon 07-23-2023 Lactic Acid Lvl 1.0 mmol/L Normal 0.2-2.0 [facility] ([place] Comment on above: Performed By: #### R F, MG, LPA, FERR, ADIFF, LIPID, ANEU, CBC, FES, GFR, CMP #### [address] [address] MGon 07-23-2023 Magnesium [Mass/Vol] 1.9 mg/dL Normal 1.6-2.4 [facility]) Comment on above: Performed By: #### G FR, ESR, ADIFF, CBC, CMP, ANEU #### [address] [address] No Panel Informationon 07-23 Culture Body Fluid No growth to date [facility] Work Phone: GS Unsedimented 3+ Polymorphonuclear cells No organisms seen. [facility] Work Phone: Microscopic examination of blood, culture Blood Culture: No Growth at [address] [facility] Work Phone: PROon 07-23-2023 INR Coag (PPP) [Relative time] 1.1 {INR} Normal [facility] ([place]) Comment on above: Result Comment: [employer] (CHEST, 1991, 102:[id number]) recommended therapeutic range for oral anticoagulant therapy is: LOW RISK: Prophylaxis of venous thrombosis INR: 2.0-3.0 Treatment of pulmonary embolism 2.0-3.0 Prevention of systemic embolism 2.0-3.0 HIGH RISK: Mechanical prosthetic valves 2.5-3.5 Performed By: #### R F, MG, LPA, FERR, ADIFF, LIPID, ANEU, CBC, FES, GFR, CMP #### [place] [address] PT Coag (PPP) [Time] 12.2 s Normal 9.0-14.2 [facility] ([place]) Comment on above: Result Comment: Effe ctive 02/15/08, Protime results may be affected by some antibiotics (i.e. Ciprofloxacin, Azithromycin, Bactrim) which may potentiate the action of oral anticoagulants, with further increases in Protime/INR. Performed By: #### R F, MG, LPA, FERR, ADIFF, LIPID, ANEU, CBC, FES, GFR, CMP #### [place] [address] TROPHSon 07-23-2023 Troponin I High Sensitivity 18.74 ng/L Normal 0.00-54.00 [facility] ([place] Comment on above: Performed By: #### R F, MG, LPA, FERR, ADIFF, LIPID, ANEU, CBC, FES, GFR, CMP #### [place] [address] UAon 07-23-2023 Color (U) DARK YELLOW Normal [facility] ([place] Comment on above: Performed By: #### R F, MG, LPA, FERR, ADIFF, LIPID, ANEU, CBC, FES, GFR, CMP #### [place] [address] Glucose (U) [Mass/Vol] Negative Normal Negative [facility] ([place]) Comment on above: Performed By: #### R F, MG, LPA, FERR, ADIFF, LIPID, ANEU, CBC, FES, GFR, CMP #### [place] [address] Ketones Ql (U) Trace Normal Neg-Trace [facility] ([place] Comment on above: Performed By: #### R F, MG, LPA, FERR, ADIFF, LIPID, ANEU, CBC, FES, GFR, CMP #### [place] [address] UA Appear Clear Normal Clear [facility] ([place] Comment on above: Performed By: #### R F, MG, LPA, FERR, ADIFF, LIPID, ANEU, CBC, FES, GFR, CMP #### [place] [address] UA Blood Negative Normal Neg-Trace [facility] ([place] Comment on above: Performed By: #### R F, MG, LPA, FERR, ADIFF, LIPID, ANEU, CBC, FES, GFR, CMP #### [place] [address] UA Leuk Est Negative Normal Negative [facility] ([place] Comment on above: Performed By: #### R F, MG, LPA, FERR, ADIFF, LIPID, ANEU, CBC, FES, GFR, CMP #### [place] [address] UA Nitrite Negative Normal Negative [facility] ([place] Comment on above: Performed By: #### R F, MG, LPA, FERR, ADIFF, LIPID, ANEU, CBC, FES, GFR, CMP #### [place] [address] UA pH 7.0 Normal 5.0 - 8.0 [facility] ([place] Comment on above: Performed By: #### R F, MG, LPA, FERR, ADIFF, LIPID, ANEU, CBC, FES, GFR, CMP #### [place] [address] UA Protein Negative Normal Negative [facility] ([place] Comment on above: Performed By: #### R F, MG, LPA, FERR, ADIFF, LIPID, ANEU, CBC, FES, GFR, CMP #### [place] [address] UA Spec Grav 1.025 Normal 1.006-1.029 [facility] ([place] Comment on above: Performed By: #### R F, MG, LPA, FERR, ADIFF, LIPID, ANEU, CBC, FES, GFR, CMP #### [address] [address] UA Specimen Type Clean Catch Normal [facility] ([place] Comment on above: Performed By: #### R F, MG, LPA, FERR, ADIFF, LIPID, ANEU, CBC, FES, GFR, CMP #### [place] [address] UA Urobilinogen 1.0 E.U./dL Normal 0.2-1.0 [facility] ([place] Comment on above: Performed By: #### R F, MG, LPA, FERR, ADIFF, LIPID, ANEU, CBC, FES, GFR, CMP #### [place] [address] Urobilinogen (U) [Mass/Vol] Negative Normal Neg-Trace [facility] ([place] Comment on above: Performed By: #### R F, MG, LPA, FERR, ADIFF, LIPID, ANEU, CBC, FES, GFR, CMP #### [place] [address] US GROIN RIGHTon 07-23-2023 US GROIN RIGHT ORIGINAL EXAMINATION: LIMITED ULTRASOUND EXAMINATION OF THE RIGHT GROIN109/22/2022 10:27 pm TECHNIQUE: Focused grayscale and color Doppler evaluation of the right groin region of interest. COMPARISON: None HISTORY: ORDERING SYSTEM PROVIDED HISTORY: Reason for Exam: RIGHT sided groin pain, swelling or pseudoaneurysm FINDINGS: This exam is significantly limited secondary to patient body habitus. Within the patient's reported area of interest there is heterogeneous echogenicity lesion with dimensions 4.6 x 3.6 x 3.1 cm with apparent tract to the surface of the skin. There is adjacent vascularity to this lesion. There is some degree of overlying skin thickening. IMPRESSION: Subcutaneous fluid collection with tract extending to the surface of the skin where there is skin thickening is most compatible with an abscess. Direct visualization is recommended for confirmation of this finding. Note adjacent vascularity is seen. Clinical follow-up is recommended as warranted. I have personally reviewed the images of this examination and agree with the resident's findings and interpretation. Interpreted by: Les Dwyer MD Preliminary Report By: Param Dsouza Electronically signed By Les Dwyer MD Dictated Date: 07/22/2023 10:35:50 PM Prelim Date: 07/22/2023 10:44:29 PM Sign Date: 07/22/2023 10:53:35 PM Ordering Provider: DG ANDRADE [facility] ([place]) [place] SCROTUM CONTENTSon 2022 US SCROTUM CONTENTS ORIGINAL EXAMINATION: ULTRASOUND OF THE SCROTUM/TESTICLES WITH COLOR DOPPLER FLOW [id number]/20/2023 10:21 pm TECHNIQUE: Duplex ultrasound using B-mode/groves scaled imaging, Doppler spectral analysis and color flow Doppler was obtained of the testicles. COMPARISON: None HISTORY: ORDERING SYSTEM PROVIDED HISTORY: Reason for Exam: testicular pain, swelling or torsion FINDINGS: TESTICLES: 3 mm right testicular appendix. 7 mm left testicular cyst. Color Doppler flow is seen in both testicles in a symmetric fashion. Spectral waveform analysis of the testicles shows arterial and venous waveforms in both testicles. Right testicle: 4.3 x 3.0 x 3.1 cm Left testicle: 4.1 x 3.1 x 2.7 cm EPIDIDYMIDES: The epididymides bilaterally are normal without evidence of focal mass or hyperemia on Doppler imaging. SCROTUM: Small right greater than left hydroceles. OTHER: Echogenic soft tissue present within the right inguinal canal likely represents a fat containing inguinal hernia. IMPRESSION: No evidence of acute testicular torsion. Small bilateral hydroceles. Incidentally noted right testicular appendix and left testicular cyst. I have personally reviewed the images of this examination and agree with the resident's findings and interpretation. Interpreted by: Les Dwyer MD Preliminary Report By: Param Dsouza Electronically signed By Les Dwyer MD Dictated Date: 07/22/2023 10:25:53 PM Prelim Date: 07/22/2023 10:35:00 PM Sign Date: 07/22/2023 10:46:07 PM Ordering Provider: DG ANDRADE [facility] ([place]) .Auto Diffon 07-22-2023 Basophil, Absolute 0.1 10 3/mcL Normal 0.0-0.3 [facility] ([place]) Comment on above: Performed By: #### G FR, ESR, ADIFF, CBC, CMP, ANEU #### [address] [address] Basophils/100 WBC (Bld) 0.3 % Normal 0.0-2.5 [facility] ([place]) Comment on above: Performed By: #### G FR, ESR, ADIFF, CBC, CMP, ANEU #### [address] [address] Eosinophil, Absolute 0.1 10 3/mcL Normal 0.0-0.7 [facility] ([place]) Comment on above: Performed By: #### G FR, ESR, ADIFF, CBC, CMP, ANEU #### [address] [address] Eosinophils/100 WBC (Bld) 0.4 % Normal 0.0-6.0 [facility] ([place]) Comment on above: Performed By: #### G FR, ESR, ADIFF, CBC, CMP, ANEU #### [address] [address] Lymphocyte, Absolute 1.5 10 3/mcL Normal 0.9-4.3 [facility] ([place]) Comment on above: Performed By: #### G FR, ESR, ADIFF, CBC, CMP, ANEU #### [address] [address] Lymphocytes/100 WBC (Bld) 7.9 % Low 20.0-40.0 [facility] ([place]) Comment on above: Performed By: #### G FR, ESR, ADIFF, CBC, CMP, ANEU #### [address] [address] Monocyte, Absolute 0.9 10 3/mcL Normal 0.1-1.4 [facility] ([place]) Comment on above: Performed By: #### G FR, ESR, ADIFF, CBC, CMP, ANEU #### [address] [address] Monocytes/100 WBC (Bld) 4.5 % Normal 2.0-13.0 [facility] ([place]) Comment on above: Performed By: #### G FR, ESR, ADIFF, CBC, CMP, ANEU #### [address] [address] Neutrophils/100 WBC (Bld) 86.9 % High 50.0-75.0 [facility] ([place] Comment on above: Performed By: #### G FR, ESR, ADIFF, CBC, CMP, ANEU #### [address] [address] .GFRon 07-22-2023 GFR >60 Normal [facility] ([place] Comment on above: Result Comment: GFR Population mean for , Non- Americans Ages 20-29 = 116 mL/min/1.73 sq.m. Ages 30-39 = 107 mL/min/1.73 sq.m. Ages 40-49 = 99 mL/min/1.73 sq.m. Ages 50-59 = 93 mL/min/1.73 sq.m. Ages 60-69 = 85 mL/min/1.73 sq.m. Ages 70+ = 75 mL/min/1.73 sq.m. Chronic Kidney Disease: Less than 60 mL/min/1.73 square meters End Stage Renal Disease: Less than 15 mL/min/1.73 square meters Performed By: #### G FR, ESR, ADIFF, CBC, CMP, ANEU #### [address] [address] GFR Non- >60 Normal [facility] ([place] Comment on above: Result Comment: GFR Population mean for , Non- Americans Ages 20-29 = 116 mL/min/1.73 sq.m. Ages 30-39 = 107 mL/min/1.73 sq.m. Ages 40-49 = 99 mL/min/1.73 sq.m. Ages 50-59 = 93 mL/min/1.73 sq.m. Ages 60-69 = 85 mL/min/1.73 sq.m. Ages 70+ = 75 mL/min/1.73 sq.m. Chronic Kidney Disease: Less than 60 mL/min/1.73 square meters End Stage Renal Disease: Less than 15 mL/min/1.73 square meters Performed By: #### G FR, ESR, ADIFF, CBC, CMP, ANEU #### [place] [address] .MDWon 07-22-2023 Monocyte Distribution Width 19.11 Normal 0.00-20.00 [facility] ([place] Comment on above: Result Comment: For ED adult patients suspected of sepsis, MDW<=20.0 does not rule out sepsis or risk of sepsis Performed By: #### G FR, ESR, ADIFF, CBC, CMP, ANEU #### [place] [address] .Morphon 07-22-2023 Anisocytosis Ql (Bld) 2+ Normal [facility] ([place]) Comment on above: Performed By: #### G FR, ESR, ADIFF, CBC, CMP, ANEU #### [place] [address] Microcytosis 2+ Normal [facility] ([place] Comment on above: Performed By: #### G FR, ESR, ADIFF, CBC, CMP, ANEU #### [place] [address] Platelet Estimate Normal Normal [facility] ([place] Comment on above: Performed By: #### G FR, ESR, ADIFF, CBC, CMP, ANEU #### [place] [address] Poik 1+ Normal [facility] ([place] Comment on above: Performed By: #### G FR, ESR, ADIFF, CBC, CMP, ANEU #### [place] [address] Stomatocytes 1+ Normal [facility] ([place] Comment on above: Performed By: #### G FR, ESR, ADIFF, CBC, CMP, ANEU #### [place] [address] Toxic Gran 1+ Normal [facility] ([place] Comment on above: Performed By: #### G FR, ESR, ADIFF, CBC, CMP, ANEU #### [place] [address] .NEUABSon 07-22-2023 Neutrophil, Absolute 16.5 10 3/mcL High 2.3-8.1 [facility] ([place]) Comment on above: Performed By: #### G FR, ESR, ADIFF, CBC, CMP, ANEU #### [place] [address] CBCon 07-22-2023 Erythrocyte distribution width (RBC) [Ratio] 25.7 % High 11.5-15.5 [facility] ([place] Comment on above: Performed By: #### G FR, ESR, ADIFF, CBC, CMP, ANEU #### [place] [address] Hematocrit (Bld) [Volume fraction] 38.9 % Low 40.0-52.0 [facility] ([place] Comment on above: Performed By: #### G FR, ESR, ADIFF, CBC, CMP, ANEU #### [place] [address] Hgb 11.3 G/dL Low 13.0-17.5 [facility] ([place] Comment on above: Performed By: #### G FR, ESR, ADIFF, CBC, CMP, ANEU #### [place] [address] MCH (RBC) [Entitic mass] 22.7 pg Low 27.0-33.0 [facility] ([place] Comment on above: Performed By: #### G FR, ESR, ADIFF, CBC, CMP, ANEU #### [place] [address] MCHC 29.0 G/dL Low 32.0-36.0 [facility] ([place] Comment on above: Performed By: #### G FR, ESR, ADIFF, CBC, CMP, ANEU #### [place] [address] MCV (RBC) [Entitic vol] 78.2 fL Low 81.0-100.0 [facility] ([place] Comment on above: Performed By: #### G FR, ESR, ADIFF, CBC, CMP, ANEU #### [place] [address] Platelet 287 10 3/mcL Normal 150-450 [facility] ([place] Comment on above: Performed By: #### G FR, ESR, ADIFF, CBC, CMP, ANEU #### [place] [address] Platelet mean volume (Bld) [Entitic vol] 7.7 fL Normal 6.4-10.5 [facility] ([place] Comment on above: Performed By: #### G FR, ESR, ADIFF, CBC, CMP, ANEU #### [place] [address] RBC 4.97 10 6/mcL Normal 4.50-6.00 [facility] ([place] Comment on above: Performed By: #### G FR, ESR, ADIFF, CBC, CMP, ANEU #### [place] [address] WBC 19.0 10 3/mcL High 4.5-10.8 [facility] ([place] Comment on above: Performed By: #### G FR, ESR, ADIFF, CBC, CMP, ANEU #### [place] [address] CMPon 07-22-2023 Albumin Level 3.1 G/dL Low 3.2-4.8 [facility] ([place] Comment on above: Performed By: #### G FR, ESR, ADIFF, CBC, CMP, ANEU #### [place] [address] ALT [Catalytic activity/Vol] 14 U/L Normal 12-55 [facility] ([place] Comment on above: Performed By: #### G FR, ESR, ADIFF, CBC, CMP, ANEU #### [place] [address] Bili Total 0.60 mg/dL Normal 0.20-1.20 [facility] ([place] Comment on above: Result Comment: Use of this assay is not recommended for patients undergoing treatment with eltrombopag due to the potential for falsely elevated results. Performed By: #### G FR, ESR, ADIFF, CBC, CMP, ANEU #### [place] [address] BUN/Creatinine Ratio 15.3 ratio Normal 10.0-22.0 [facility] ([place] Comment on above: Performed By: #### G FR, ESR, ADIFF, CBC, CMP, ANEU #### [address] [address] Calcium [Mass/Vol] 9.4 mg/dL Normal 8.7-10.4 [facility] ([place]) Comment on above: Performed By: #### G FR, ESR, ADIFF, CBC, CMP, ANEU #### [address] [address] Chloride [Moles/Vol] 99 mmol/L Normal 98-110 [facility] ([place]) Comment on above: Performed By: #### G FR, ESR, ADIFF, CBC, CMP, ANEU #### [address] [address] CO2 [Moles/Vol] 33 mmol/L High 22-32 [facility] ([place]) Comment on above: Performed By: #### G FR, ESR, ADIFF, CBC, CMP, ANEU #### [address] [address] Creatinine [Mass/Vol] 0.98 mg/dL Normal 0.60-1.40 [facility] ([place]) Comment on above: Performed By: #### G FR, ESR, ADIFF, CBC, CMP, ANEU #### [address] [address] [address] Electrolyte Balance 7.0 mEq/L Normal 4.0-15.0 [facility] ([place] Comment on above: Performed By: #### G FR, ESR, ADIFF, CBC, CMP, ANEU #### [address] [address] Glucose [Mass/Vol] 89 mg/dL Normal 70-110 [facility] ([place]) Comment on above: Performed By: #### G FR, ESR, ADIFF, CBC, CMP, ANEU #### [address] [address] Potassium [Moles/Vol] 3.7 mmol/L Normal 3.5-5.0 [facility] ([place]) Comment on above: Performed By: #### G FR, ESR, ADIFF, CBC, CMP, ANEU #### [place] [address] Sodium [Moles/Vol] 139 mmol/L Normal 136-145 [facility] ([place] Comment on above: Performed By: #### G FR, ESR, ADIFF, CBC, CMP, ANEU #### [place] [address] Total Protein 7.4 G/dL Normal 5.7-8.2 [facility] ([place]) Comment on above: Result Comment: No te - New Reference Range in effect 20 Performed By: #### G FR, ESR, ADIFF, CBC, CMP, ANEU #### [place] [address] Urea nitrogen [Mass/Vol] 15.0 mg/dL Normal 8.0-22.0 [facility] ([place] Comment on above: Performed By: #### G FR, ESR, ADIFF, CBC, CMP, ANEU #### [place] [address] CMPOrdered By: SYSTEM SYSTEM on 07-22-2023 Albumin/Globulin [Mass ratio] 0.7 {ratio} Low 0.9-1.6 AH ADM SS Comment on above: Performed By: #### G FR, ESR, ADIFF, CBC, CMP, ANEU #### [place] [address] ALP [Catalytic activity/Vol] 140 U/L High 38-126 AH ADM SS Comment on above: Performed By: #### G FR, ESR, ADIFF, CBC, CMP, ANEU #### [place] [id number] AST [Catalytic activity/Vol] 13 U/L Normal 8-34 AH ADM SS Comment on above: Performed By: #### G FR, ESR, ADIFF, CBC, CMP, ANEU #### [place] [address] Globulin 4.3 G/dL High 1.5-3.8 AH ADM SS Comment on above: Performed By: #### G FR, ESR, ADIFF, CBC, CMP, ANEU #### [place] [address] LABORATORYOrdered By: Neda Worthington on 07-22-2023 Appearance (U) Clear (07/22/23 10:44 PM) Normal Clear AH Auto Urine SS Bilirubin Ql (U) Negative (07/22/23 10:44 PM) Normal Neg-Trace AH Auto Urine SS Color (U) DARK YELLOW Invalid Interpretation Code AH Auto Urine SS Glucose Test strip (U) [Mass/Vol] Negative Normal Negative AH Auto Urine SS Hemoglobin Auto test strip (U) [Mass/Vol] Negative (07/22/23 10:44 PM) Normal Neg-Trace AH Auto Urine SS Ketones Ql (U) Trace mg/dL Normal Neg-Trace AH Auto Urine SS UA Leuk Est Negative (07/22/23 10:44 PM) Normal Negative AH Auto Urine SS UA Nitrite Negative (07/22/23 10:44 PM) Normal Negative AH Auto Urine SS UA pH 7.0 (07/22/23 10:44 PM) Normal 5.0 - 8.0 AH Auto Urine SS UA Protein Negative Normal Negative AH Auto Urine SS UA Spec Grav 1.025 (07/22/23 10:44 PM) Normal 1.006-1.029 AH Auto Urine SS UA Specimen Type Clean Catch (07/22/23 10:44 PM) Normal AH Auto Urine SS UA Urobilinogen 1.0 E.U./dL Normal 0.2-1.0 AH Auto Urine SS LABORATORYOrdered By: SYSTEM SYSTEM on 07-22-2023 Troponin I.cardiac DL <= 0.01 ng/mL [Mass/Vol] 10.65 ng/L Normal 0.00 - 54.00 ng/L AH ADM SS Albumin BCP dye [Mass/Vol] 3.1 G/dL Low 3.2 - 4.8 G/dL AH ADM SS ALT No additional P-5'-P [Catalytic activity/Vol] 14 U/L Normal 12 - 55 U/L AH ADM SS Bilirubin [Mass/Vol] 0.60 mg/dL Normal 0.20 - 1.20 mg/dL AH ADM SS Comment on above: Interpretive Data: U se of this assay is not recommended for patients undergoing treatment with eltrombopag due to the potential for falsely elevated results. Lipase [Catalytic activity/Vol] 26 U/L Normal 12 - 53 U/L ADM SS Comment on above: Interpretive Data: * *Note - New Reference Range in effect 20 Monocyte distribution width Auto (Bld) [Entitic vol] 19.11 1 Normal 0.00 - 20.00 Workflow SS Comment on above: Result Comment: For ED adult patients suspected of sepsis, MDW<=20.0 does not rule out sepsis or risk of sepsis Protein [Mass/Vol] 7.4 G/dL Normal 5.7 - 8.2 G/dL ADM SS Comment on above: Interpretive Data: * *Note - New Reference Range in effect 20 Stomatocytes 1+ *NA* (07/22/23 12:00 PM) Invalid Interpretation Code Workflow SS Toxic Gran 1+ *NA* (07/22/23 12:00 PM) Invalid Interpretation Code Workflow SS Troponin I.cardiac DL <= 0.01 ng/mL [Mass/Vol] 11.10 ng/L Normal 0.00 - 54.00 ng/L ADM LIPon 07-22-2023 Lipase Level 26 U/L Normal 12-53 [facility] ([place] Comment on above: Result Comment: No te - New Reference Range in effect 20 Performed By: #### G FR, ESR, ADIFF, CBC, CMP, ANEU #### [address] [address] No Panel Informationon 07-22 Culture Urine 10,000 - 50,000 cfu/ ml Multiple bacterial morphotypes present. Probable Contamination. Suggest recollection if clinically indicated. [facility] Work Phone: TROPHSon 07-22-2023 Troponin I High Sensitivity 10.65 ng/L Normal 0.00-54.00 [facility] ([place] Comment on above: Performed By: #### G FR, ESR, ADIFF, CBC, CMP, ANEU #### [address] [address] Troponin I High Sensitivity 11.10 ng/L Normal 0.00-54.00 [facility] ([place] Comment on above: Performed By: #### G FR, ESR, ADIFF, CBC, CMP, ANEU #### [address] [address] XR CHEST 1 VIEWon 07-22-2023 XR CHEST 1 VIEW ORIGINAL EXAMINATION: ONE XRAY VIEW OF THE CHEST07/22/2023 12:01 pm COMPARISON: 06/29/2023 HISTORY: ORDERING SYSTEM PROVIDED HISTORY: Reason for Exam: pain FINDINGS: Cardiomegaly noted. Pacer device seen from a left chest wall approach. Bandlike parenchymal opacities are most prevalent in the central and lower lungs. A dense nodule projects over the right upper thorax measuring 1.1 cm. No pleural fluid or pneumothorax. No aggressive osseous lesions identified. IMPRESSION: 1. Bandlike parenchymal opacities in the central and lower lungs could relate to atelectasis, scarring or other pathology. There is also a dense but not clearly calcified right lung nodule. For all of these findings, CT characterization advised Interpreted by: Bebeto Urbina MD Preliminary Report By: Bebeto Urbina MD Electronically signed By Bebeto Urbina MD Dictated Date: 07/22/2023 12:11:07 PM Prelim Date: 07/22/2023 12:12:40 PM Sign Date: 07/22/2023 12:12:40 PM Ordering Provider: EILEEN Ignacio [facility] ([place]) .Auto Diffon 07-02-2023 Basophil, Absolute 0.1 10 3/mcL Normal 0.0-0.3 [facility] ([place]) Comment on above: Performed By: #### G FR, ESR, ADIFF, CBC, CMP, ANEU #### [address] [address] Eosinophil, Absolute 0.1 10 3/mcL Normal 0.0-0.7 [facility] ([place]) Comment on above: Performed By: #### G FR, ESR, ADIFF, CBC, CMP, ANEU #### [address] [address] Lymphocyte, Absolute 1.6 10 3/mcL Normal 0.9-4.3 [facility] ([place] Comment on above: Performed By: #### G FR, ESR, ADIFF, CBC, CMP, ANEU #### [address] [address] Monocyte, Absolute 0.9 10 3/mcL Normal 0.1-1.4 [facility] ([place] Comment on above: Performed By: #### G FR, ESR, ADIFF, CBC, CMP, ANEU #### [address] [address] .Auto DiffOrdered By: SYSTEM SYSTEM on 07-02-2023 Basophils/100 WBC (Bld) 0.6 % Normal 0.0-2.5 AH Workflow SS Comment on above: Performed By: #### G FR, ESR, ADIFF, CBC, CMP, ANEU #### [address] [address] Eosinophils/100 WBC (Bld) 0.8 % Normal 0.0-6.0 AH Workflow SS Comment on above: Performed By: #### G FR, ESR, ADIFF, CBC, CMP, ANEU #### [address] [address] Lymphocytes/100 WBC (Bld) 12.2 % Low 20.0-40.0 AH Workflow SS Comment on above: Performed By: #### G FR, ESR, ADIFF, CBC, CMP, ANEU #### [address] [address] Monocytes/100 WBC (Bld) 6.5 % Normal 2.0-13.0 AH Workflow SS Comment on above: Performed By: #### G FR, ESR, ADIFF, CBC, CMP, ANEU #### [address] [address] Neutrophils/100 WBC (Bld) 79.9 % High 50.0-75.0 AH Workflow SS Comment on above: Performed By: #### G FR, ESR, ADIFF, CBC, CMP, ANEU #### [address] [address] .GFRon 07-02-2023 GFR >60 Normal [facility] ([place] Comment on above: Result Comment: GFR Population mean for , Non- Americans Ages 20-29 = 116 mL/min/1.73 sq.m. Ages 30-39 = 107 mL/min/1.73 sq.m. Ages 40-49 = 99 mL/min/1.73 sq.m. Ages 50-59 = 93 mL/min/1.73 sq.m. Ages 60-69 = 85 mL/min/1.73 sq.m. Ages 70+ = 75 mL/min/1.73 sq.m. Chronic Kidney Disease: Less than 60 mL/min/1.73 square meters End Stage Renal Disease: Less than 15 mL/min/1.73 square meters Performed By: #### G FR, ESR, ADIFF, CBC, CMP, ANEU #### [address] [address] GFR Non- >60 Normal [facility] ([place] Comment on above: Result Comment: GFR Population mean for , Non- Americans Ages 20-29 = 116 mL/min/1.73 sq.m. Ages 30-39 = 107 mL/min/1.73 sq.m. Ages 40-49 = 99 mL/min/1.73 sq.m. Ages 50-59 = 93 mL/min/1.73 sq.m. Ages 60-69 = 85 mL/min/1.73 sq.m. Ages 70+ = 75 mL/min/1.73 sq.m. Chronic Kidney Disease: Less than 60 mL/min/1.73 square meters End Stage Renal Disease: Less than 15 mL/min/1.73 square meters Performed By: #### G FR, ESR, ADIFF, CBC, CMP, ANEU #### [address] [address] .NEUABSon 07-02-2023 Neutrophil, Absolute 10.6 10 3/mcL High 2.3-8.1 [facility] [place] Comment on above: Performed By: #### G FR, ESR, ADIFF, CBC, CMP, ANEU #### [address] [address] BGon 07-02-2023 Barometric Pressure 709 mmHg Normal [facility] ([place] Comment on above: Performed By: #### G FR, ESR, ADIFF, CBC, CMP, ANEU #### [address] [address] Base excess Calc (Bld) [Moles/Vol] 10.2 mmol/L Normal [facility] ([place] Comment on above: Performed By: #### G FR, ESR, ADIFF, CBC, CMP, ANEU #### [address] [address] CO2 [Moles/Vol] 38.1 mmol/L High 22.0-30.0 [facility] ([place] Comment on above: Performed By: #### G FR, ESR, ADIFF, CBC, CMP, ANEU #### [place] [id number] HCO3 (Bld) [Moles/Vol] 36.3 mmol/L High 21.0-29.0 [facility] [place] Comment on above: Performed By: #### G FR, ESR, ADIFF, CBC, CMP, ANEU #### [place] [id number] Oxygen (Bld) [Partial pressure] 78.8 mm[Hg] Normal 74.0-108.0 [facility] ([place] Comment on above: Performed By: #### G FR, ESR, ADIFF, CBC, CMP, ANEU #### [place] [address] Oxygen saturation in Blood 95.4 % Normal 92.0-96.0 [facility] ([place] Comment on above: Performed By: #### G FR, ESR, ADIFF, CBC, CMP, ANEU #### [place] [id number] pCO2 58.4 mmHg High 32.0-46.0 [facility] ([place] Comment on above: Performed By: #### G FR, ESR, ADIFF, CBC, CMP, ANEU #### [address] [address] pH (Bld) 7.411 [pH] Normal 7.380-7.460 [facility] ([place] Comment on above: Performed By: #### G FR, ESR, ADIFF, CBC, CMP, ANEU #### [place] [id number] BMPon 07-02-2023 BUN/Creatinine Ratio 32.2 ratio High 10.0-22.0 [facility] ([place] Comment on above: Performed By: #### G FR, ESR, ADIFF, CBC, CMP, ANEU #### [address] [address] BMPOrdered By: SYSTEM SYSTEM on 07-02-2023 Calcium [Mass/Vol] 9.2 mg/dL Normal 8.7-10.4 AH ADM SS Comment on above: Performed By: #### G FR, ESR, ADIFF, CBC, CMP, ANEU #### [address] [address] Chloride [Moles/Vol] 101 mmol/L Normal 98-110 AH A DM SS Comment on above: Performed By: #### G FR, ESR, ADIFF, CBC, CMP, ANEU #### [address] [address] CO2 [Moles/Vol] 35 mmol/L High 22-32 AH ADM SS Comment on above: Performed By: #### G FR, ESR, ADIFF, CBC, CMP, ANEU #### [place] [address] Creatinine [Mass/Vol] 0.90 mg/dL Normal 0.60-1.40 AH ADM SS Comment on above: Performed By: #### G FR, ESR, ADIFF, CBC, CMP, ANEU #### [address] [address] Electrolyte Balance 4.0 mEq/L Normal 4.0-15.0 AH AD M SS Comment on above: Performed By: #### G FR, ESR, ADIFF, CBC, CMP, ANEU #### [address] [address] Glucose [Mass/Vol] 159 mg/dL High 70-110 AH ADM SS Comment on above: Performed By: #### G FR, ESR, ADIFF, CBC, CMP, ANEU #### [place] [id number] Potassium [Moles/Vol] 4.6 mmol/L Normal 3.5-5.0 AH ADM SS Comment on above: Performed By: #### G FR, ESR, ADIFF, CBC, CMP, ANEU #### [place] [address] Sodium [Moles/Vol] 140 mmol/L Normal 136-145 AH ADM SS Comment on above: Performed By: #### G FR, ESR, ADIFF, CBC, CMP, ANEU #### [place] [address] Urea nitrogen [Mass/Vol] 29.0 mg/dL High 8.0-22.0 AH ADM SS Comment on above: Performed By: #### G FR, ESR, ADIFF, CBC, CMP, ANEU #### [place] [address] CBCOrdered By: SYSTEM SYSTEM on 07-02-2023 Erythrocyte distribution width (RBC) [Ratio] 19.7 % High 11.5-15.5 AH Workflow SS Comment on above: Performed By: #### G FR, ESR, ADIFF, CBC, CMP, ANEU #### [place] [address] Hematocrit (Bld) [Volume fraction] 29.5 % Low 40.0-52.0 AH Workflow SS Comment on above: Performed By: #### G FR, ESR, ADIFF, CBC, CMP, ANEU #### [place] [address] MCH (RBC) [Entitic mass] 20.7 pg Low 27.0-33.0 AH Workflow SS Comment on above: Performed By: #### G FR, ESR, ADIFF, CBC, CMP, ANEU #### [place] [address] MCHC 28.7 G/dL Low 32.0-36.0 AH Workflow SS Comment on above: Performed By: #### G FR, ESR, ADIFF, CBC, CMP, ANEU #### [place] [address] MCV (RBC) [Entitic vol] 72.1 fL Low 81.0-100.0 AH Workflow SS Comment on above: Performed By: #### G FR, ESR, ADIFF, CBC, CMP, ANEU #### [facility] [address] [place], [place] [address] Platelet mean volume (Bld) [Entitic vol] 7.5 fL Normal 6.4-10.5 Workflow SS Comment on above: Performed By: #### G FR, ESR, ADIFF, CBC, CMP, ANEU #### [place] [id number] [address] [place] [address] CBCon 07-02-2023 Hgb 8.5 G/dL Low 13.0-17.5 [facility] ([place] Comment on above: Performed By: #### G FR, ESR, ADIFF, CBC, CMP, ANEU #### [address] [address] Platelet 304 10 3/mcL Normal 150-450 [facility] ([place] Comment on above: Performed By: #### G FR, ESR, ADIFF, CBC, CMP, ANEU #### [address] [address] RBC 4.09 10 6/mcL Low 4.50-6.00 [facility] ([place] Comment on above: Performed By: #### G FR, ESR, ADIFF, CBC, CMP, ANEU #### [address] [address] WBC 13.3 10 3/mcL High 4.5-10.8 [facility] ([place] Comment on above: Performed By: #### G FR, ESR, ADIFF, CBC, CMP, ANEU #### [address] [address] LABORATORYOrdered By: Hannah Paz on 07-02-2023 Barometric Pressure 709 mm[Hg] Invalid Interpretation Code AH Auto Chem SS Base excess Calc (Bld) [Moles/Vol] 10.2 mmol/L Invalid Interpretation Code AH Auto Chem SS CO2 (Bld) [Partial pressure] 58.4 mm[Hg] High 32.0 - 46.0 mm Hg AH Auto Chem SS CO2 [Moles/Vol] 38.1 mmol/L High 22.0 - 30.0 mmol/L AH Auto Chem SS HCO3 (Bld) [Moles/Vol] 36.3 mmol/L High 21.0 - 29.0 mmol/L AH Auto Chem SS Oxygen (Bld) [Partial pressure] 78.8 mm[Hg] Normal 74.0 - 108.0 mm Hg Auto Chem SS pH (Bld) 7.411 [pH] Normal 7.380 - 7.460 Auto Chem SS LABORATORYOrdered By: SYSTEM SYSTEM on 07-02-2023 Basophils (Bld) [#/Vol] 0.1 103/mcL Normal 0.0 - 0.3 10^3/mcL Workflow SS Eosinophils (Bld) [#/Vol] 0.1 103/mcL Normal 0.0 - 0.7 10^3/mcL Workflow SS GFR/1.73 sq M.predicted among blacks MDRD (S/P/Bld) [Vol rate/Area] ml/min/1.73sqm Invalid Interpretation Code ADM SS Comment on above: Interpretive Data: GFR Population mean for , Non- Americans Ages 20-29 = 116 mL/min/1.73 sq.m. Ages 30-39 = 107 mL/min/1.73 sq.m. Ages 40-49 = 99 mL/min/1.73 sq.m. Ages 50-59 = 93 mL/min/1.73 sq.m. Ages 60-69 = 85 mL/min/1.73 sq.m. Ages 70+ = 75 mL/min/1.73 sq.m. Chronic Kidney Disease: Less than 60 mL/min/1.73 square meters End Stage Renal Disease: Less than 15 mL/min/1.73 square meters GFR/1.73 sq M.predicted among non-blacks MDRD (S/P/Bld) [Vol rate/Area] ml/min/1.73sqm Invalid Interpretation Code [facility] Comment on above: Interpretive Data: GFR Population mean for , Non- Americans Ages 20-29 = 116 mL/min/1.73 sq.m. Ages 30-39 = 107 mL/min/1.73 sq.m. Ages 40-49 = 99 mL/min/1.73 sq.m. Ages 50-59 = 93 mL/min/1.73 sq.m. Ages 60-69 = 85 mL/min/1.73 sq.m. Ages 70+ = 75 mL/min/1.73 sq.m. Chronic Kidney Disease: Less than 60 mL/min/1.73 square meters End Stage Renal Disease: Less than 15 mL/min/1.73 square meters Hemoglobin (Bld) [Mass/Vol] 8.5 G/dL Low 13.0 - 17.5 G/dL Workflow SS Lymphocytes (Bld) [#/Vol] 1.6 103/mcL Normal 0.9 - 4.3 10^3/mcL AH Workflow SS Monocytes (Bld) [#/Vol] 0.9 103/mcL Normal 0.1 - 1.4 10^3/mcL Workflow SS Neutrophils (Bld) [#/Vol] 10.6 103/mcL High 2.3 - 8.1 10^3/mcL Workflow SS Platelets (Bld) [#/Vol] 304 103/mcL Normal 150 - 450 10^3/mcL Workflow SS RBC (Bld) [#/Vol] 4.09 106/mcL Low 4.50 - 6.0 0 10^6/mcL AH Workflow SS Urea nitrogen/Creatinine [Mass ratio] 32.2 ratio High 10.0 - 22.0 ratio AH ADM SS WBC (Bld) [#/Vol] 13.3 103/mcL High 4.5 - 10.8 10^3/mcL Workflow SS MGOrdered By: SYSTEM SYSTEM on 07-02-2023 Magnesium [Mass/Vol] 1.8 mg/dL Normal 1.6-2.4 AH A DM SS Comment on above: Performed By: #### G FR, ESR, ADIFF, CBC, CMP, ANEU #### [address] [address] .Auto Diffon 07-01-2023 Basophil, Absolute 0.0 10 3/mcL Normal 0.0-0.3 [facility] ([place] Comment on above: Performed By: #### R F, MG, LPA, FERR, ADIFF, LIPID, ANEU, CBC, FES, GFR, CMP #### [address] [address] Basophils/100 WBC (Bld) 0.1 % Normal 0.0-2.5 [facility] ([place] Comment on above: Performed By: #### R F, MG, LPA, FERR, ADIFF, LIPID, ANEU, CBC, FES, GFR, CMP #### [address] [address] Eosinophil, Absolute 0.1 10 3/mcL Normal 0.0-0.7 [facility] ([place] Comment on above: Performed By: #### R F, MG, LPA, FERR, ADIFF, LIPID, ANEU, CBC, FES, GFR, CMP #### [address] [address] Eosinophils/100 WBC (Bld) 0.7 % Normal 0.0-6.0 [facility] ([place] Comment on above: Performed By: #### R F, MG, LPA, FERR, ADIFF, LIPID, ANEU, CBC, FES, GFR, CMP #### [address] [address] Lymphocyte, Absolute 1.4 10 3/mcL Normal 0.9-4.3 [facility] ([place] Comment on above: Performed By: #### R F, MG, LPA, FERR, ADIFF, LIPID, ANEU, CBC, FES, GFR, CMP #### [address] [address] Lymphocytes/100 WBC (Bld) 9.4 % Low 20.0-40.0 [facility] ([place] Comment on above: Performed By: #### R F, MG, LPA, FERR, ADIFF, LIPID, ANEU, CBC, FES, GFR, CMP #### [address] [address] Monocyte, Absolute 0.8 10 3/mcL Normal 0.1-1.4 [facility] ([place] Comment on above: Performed By: #### R F, MG, LPA, FERR, ADIFF, LIPID, ANEU, CBC, FES, GFR, CMP #### [address] [address] Monocytes/100 WBC (Bld) 5.0 % Normal 2.0-13.0 [facility] ([place] Comment on above: Performed By: #### R F, MG, LPA, FERR, ADIFF, LIPID, ANEU, CBC, FES, GFR, CMP #### [address] [address] Neutrophils/100 WBC (Bld) 84.8 % High 50.0-75.0 [facility] ([place] Comment on above: Performed By: #### R F, MG, LPA, FERR, ADIFF, LIPID, ANEU, CBC, FES, GFR, CMP #### [address] [address] Basophil, Absolute 0.0 10 3/mcL Normal 0.0-0.3 [facility] ([place] Comment on above: Performed By: #### G FR, ESR, ADIFF, CBC, CMP, ANEU #### [address] [address] Basophils/100 WBC (Bld) 0.3 % Normal 0.0-2.5 [facility] ([place] Comment on above: Performed By: #### G FR, ESR, ADIFF, CBC, CMP, ANEU #### [address] [address] Eosinophil, Absolute 0.1 10 3/mcL Normal 0.0-0.7 [facility] ([place] Comment on above: Performed By: #### G FR, ESR, ADIFF, CBC, CMP, ANEU #### [address] [address] Eosinophils/100 WBC (Bld) 0.4 % Normal 0.0-6.0 [facility] ([place] Comment on above: Performed By: #### G FR, ESR, ADIFF, CBC, CMP, ANEU #### [address] [address] Lymphocyte, Absolute 1.4 10 3/mcL Normal 0.9-4.3 [facility] ([place] Comment on above: Performed By: #### G FR, ESR, ADIFF, CBC, CMP, ANEU #### [address] [address] Lymphocytes/100 WBC (Bld) 8.4 % Low 20.0-40.0 [facility] ([place] Comment on above: Performed By: #### G FR, ESR, ADIFF, CBC, CMP, ANEU #### [address] [address] Monocyte, Absolute 0.9 10 3/mcL Normal 0.1-1.4 [facility] ([place] Comment on above: Performed By: #### G FR, ESR, ADIFF, CBC, CMP, ANEU #### [address] [address] Monocytes/100 WBC (Bld) 5.5 % Normal 2.0-13.0 [facility] ([place] Comment on above: Performed By: #### G FR, ESR, ADIFF, CBC, CMP, ANEU #### [address] [address] Neutrophils/100 WBC (Bld) 85.4 % High 50.0-75.0 [facility] ([place] Comment on above: Performed By: #### G FR, ESR, ADIFF, CBC, CMP, ANEU #### [address] [address] .GFRon 07-01-2023 GFR >60 Normal [facility] ([place] Comment on above: Result Comment: GFR Population mean for , Non- Americans Ages 20-29 = 116 mL/min/1.73 sq.m. Ages 30-39 = 107 mL/min/1.73 sq.m. Ages 40-49 = 99 mL/min/1.73 sq.m. Ages 50-59 = 93 mL/min/1.73 sq.m. Ages 60-69 = 85 mL/min/1.73 sq.m. Ages 70+ = 75 mL/min/1.73 sq.m. Chronic Kidney Disease: Less than 60 mL/min/1.73 square meters End Stage Renal Disease: Less than 15 mL/min/1.73 square meters Performed By: #### R F, MG, LPA, FERR, ADIFF, LIPID, ANEU, CBC, FES, GFR, CMP #### [address] [address] GFR Non- >60 Normal [facility] ([place] Comment on above: Result Comment: GFR Population mean for , Non- Americans Ages 20-29 = 116 mL/min/1.73 sq.m. Ages 30-39 = 107 mL/min/1.73 sq.m. Ages 40-49 = 99 mL/min/1.73 sq.m. Ages 50-59 = 93 mL/min/1.73 sq.m. Ages 60-69 = 85 mL/min/1.73 sq.m. Ages 70+ = 75 mL/min/1.73 sq.m. Chronic Kidney Disease: Less than 60 mL/min/1.73 square meters End Stage Renal Disease: Less than 15 mL/min/1.73 square meters Performed By: #### R F, MG, LPA, FERR, ADIFF, LIPID, ANEU, CBC, FES, GFR, CMP #### [address] [address] GFR >60 Normal [facility] ([place] Comment on above: Result Comment: GFR Population mean for , Non- Americans Ages 20-29 = 116 mL/min/1.73 sq.m. Ages 30-39 = 107 mL/min/1.73 sq.m. Ages 40-49 = 99 mL/min/1.73 sq.m. Ages 50-59 = 93 mL/min/1.73 sq.m. Ages 60-69 = 85 mL/min/1.73 sq.m. Ages 70+ = 75 mL/min/1.73 sq.m. Chronic Kidney Disease: Less than 60 mL/min/1.73 square meters End Stage Renal Disease: Less than 15 mL/min/1.73 square meters Performed By: #### G FR, ESR, ADIFF, CBC, CMP, ANEU #### [address] [address] GFR Non- >60 Normal [facility] ([place] Comment on above: Result Comment: GFR Population mean for , Non- Americans Ages 20-29 = 116 mL/min/1.73 sq.m. Ages 30-39 = 107 mL/min/1.73 sq.m. Ages 40-49 = 99 mL/min/1.73 sq.m. Ages 50-59 = 93 mL/min/1.73 sq.m. Ages 60-69 = 85 mL/min/1.73 sq.m. Ages 70+ = 75 mL/min/1.73 sq.m. Chronic Kidney Disease: Less than 60 mL/min/1.73 square meters End Stage Renal Disease: Less than 15 mL/min/1.73 square meters Performed By: #### G FR, ESR, ADIFF, CBC, CMP, ANEU #### [place] [address] .NEUABSon 07-01-2023 Neutrophil, Absolute 13.1 10 3/mcL High 2.3-8.1 [facility] [place] Comment on above: Performed By: #### R F, MG, LPA, FERR, ADIFF, LIPID, ANEU, CBC, FES, GFR, CMP #### [place] [address] Neutrophil, Absolute 13.9 10 3/mcL High 2.3-8.1 [facility] [place] Comment on above: Performed By: #### G FR, ESR, ADIFF, CBC, CMP, ANEU #### [place] [address] APTTon 07-01-2023 aPTT Coag (Bld) [Time] 88.9 s High 25.0-35.0 [facility] ([place] Comment on above: Result Comment: For Heparin anticoagulation therapy, the recommended therapeutic range is: 54-77 seconds (APTT Correlation with Anti-Xa therapeutic range of 0.3-0.7 units/ml). PLEASE REFERENCE THE PHARMACY PROTOCOL FOR DOSING. Heparin dose (APTT) Heparin IV Normal [facility] ([place] aPTT Coag (Bld) [Time] 53.4 s High 25.0-35.0 [facility] ([place] Comment on above: Result Comment: For Heparin anticoagulation therapy, the recommended therapeutic range is: 54-77 seconds (APTT Correlation with Anti-Xa therapeutic range of 0.3-0.7 units/ml). PLEASE REFERENCE THE PHARMACY PROTOCOL FOR DOSING. Performed By: #### G FR, ESR, ADIFF, CBC, CMP, ANEU #### [place] [id number] Heparin dose (APTT) Heparin IV Normal [facility] ([place] Comment on above: Performed By: #### G FR, ESR, ADIFF, CBC, CMP, ANEU #### [place] [address] BMPon 07-01-2023 BUN/Creatinine Ratio 35.2 ratio High 10.0-22.0 [facility] ([place]) Comment on above: Performed By: #### R F, MG, LPA, FERR, ADIFF, LIPID, ANEU, CBC, FES, GFR, CMP #### [address] [address] Calcium [Mass/Vol] 8.8 mg/dL Normal 8.7-10.4 [facility] ([place]) Comment on above: Performed By: #### R F, MG, LPA, FERR, ADIFF, LIPID, ANEU, CBC, FES, GFR, CMP #### [place] [id number] Chloride [Moles/Vol] 100 mmol/L Normal 98-110 [facility] ([place]) Comment on above: Performed By: #### R F, MG, LPA, FERR, ADIFF, LIPID, ANEU, CBC, FES, GFR, CMP #### [place] [id number] CO2 [Moles/Vol] 30 mmol/L Normal 22-32 [facility] ([place]) Comment on above: Performed By: #### R F, MG, LPA, FERR, ADIFF, LIPID, ANEU, CBC, FES, GFR, CMP #### [place] [address] Creatinine [Mass/Vol] 0.88 mg/dL Normal 0.60-1.40 [facility] ([place]) Comment on above: Performed By: #### R F, MG, LPA, FERR, ADIFF, LIPID, ANEU, CBC, FES, GFR, CMP #### [place] [address] Electrolyte Balance 7.0 mEq/L Normal 4.0-15.0 [facility] ([place]) Comment on above: Performed By: #### R F, MG, LPA, FERR, ADIFF, LIPID, ANEU, CBC, FES, GFR, CMP #### [place] [id number] Glucose [Mass/Vol] 243 mg/dL High 70-110 [facility] ([place]) Comment on above: Performed By: #### R F, MG, LPA, FERR, ADIFF, LIPID, ANEU, CBC, FES, GFR, CMP #### [address] [address] Potassium [Moles/Vol] 4.6 mmol/L Normal 3.5-5.0 [facility] ([place]) Comment on above: Result Comment: Spec imen slightly hemolyzed. Performed By: #### R F, MG, LPA, FERR, ADIFF, LIPID, ANEU, CBC, FES, GFR, CMP #### [address] [address] Sodium [Moles/Vol] 137 mmol/L Normal 136-145 [facility] ([place] Comment on above: Performed By: #### R F, MG, LPA, FERR, ADIFF, LIPID, ANEU, CBC, FES, GFR, CMP #### [address] [address] Urea nitrogen [Mass/Vol] 31.0 mg/dL High 8.0-22.0 [facility] ([place] Comment on above: Performed By: #### R F, MG, LPA, FERR, ADIFF, LIPID, ANEU, CBC, FES, GFR, CMP #### [address] [address] BUN/Creatinine Ratio 33.3 ratio High 10.0-22.0 [facility] ([place] Comment on above: Performed By: #### G FR, ESR, ADIFF, CBC, CMP, ANEU #### [address] [address] Calcium [Mass/Vol] 9.1 mg/dL Normal 8.7-10.4 [facility] ([place] Comment on above: Performed By: #### G FR, ESR, ADIFF, CBC, CMP, ANEU #### [address] [address] Chloride [Moles/Vol] 101 mmol/L Normal 98-110 [facility] ([place] Comment on above: Performed By: #### G FR, ESR, ADIFF, CBC, CMP, ANEU #### [address] [address] CO2 [Moles/Vol] 33 mmol/L High 22-32 [facility] ([place] Comment on above: Performed By: #### G FR, ESR, ADIFF, CBC, CMP, ANEU #### [address] [address] Creatinine [Mass/Vol] 0.93 mg/dL Normal 0.60-1.40 [facility] ([place] Comment on above: Performed By: #### G FR, ESR, ADIFF, CBC, CMP, ANEU #### [address] [address] Electrolyte Balance 3.0 mEq/L Low 4.0-15.0 [facility] ([place] Comment on above: Performed By: #### G FR, ESR, ADIFF, CBC, CMP, ANEU #### [address] [address] Glucose [Mass/Vol] 199 mg/dL High 70-110 [facility] ([place] Comment on above: Performed By: #### G FR, ESR, ADIFF, CBC, CMP, ANEU #### [address] [address] Potassium [Moles/Vol] 5.1 mmol/L High 3.5-5.0 [facility] ([place] Comment on above: Result Comment: Spec imen slightly hemolyzed. Performed By: #### G FR, ESR, ADIFF, CBC, CMP, ANEU #### [address] [address] Sodium [Moles/Vol] 137 mmol/L Normal 136-145 [facility] ([place] Comment on above: Performed By: #### G FR, ESR, ADIFF, CBC, CMP, ANEU #### [address] [address] Urea nitrogen [Mass/Vol] 31.0 mg/dL High 8.0-22.0 [facility] ([place] Comment on above: Performed By: #### G FR, ESR, ADIFF, CBC, CMP, ANEU #### [address] [address] CBCon 07-01-2023 Erythrocyte distribution width (RBC) [Ratio] 19.3 % High 11.5-15.5 [facility] ([place] Comment on above: Performed By: #### R F, MG, LPA, FERR, ADIFF, LIPID, ANEU, CBC, FES, GFR, CMP #### [place] [address] Hematocrit (Bld) [Volume fraction] 28.5 % Low 40.0-52.0 [facility] ([place] Comment on above: Performed By: #### R F, MG, LPA, FERR, ADIFF, LIPID, ANEU, CBC, FES, GFR, CMP #### [place] [address] Hgb 8.3 G/dL Low 13.0-17.5 [facility] ([place] Comment on above: Performed By: #### R F, MG, LPA, FERR, ADIFF, LIPID, ANEU, CBC, FES, GFR, CMP #### [place] [address] MCH (RBC) [Entitic mass] 20.6 pg Low 27.0-33.0 [facility] ([place] Comment on above: Performed By: #### R F, MG, LPA, FERR, ADIFF, LIPID, ANEU, CBC, FES, GFR, CMP #### [place] [id number] MCHC 28.9 G/dL Low 32.0-36.0 [facility] ([place] Comment on above: Performed By: #### R F, MG, LPA, FERR, ADIFF, LIPID, ANEU, CBC, FES, GFR, CMP #### [place] [id number] MCV (RBC) [Entitic vol] 71.3 fL Low 81.0-100.0 [facility] ([place] Comment on above: Performed By: #### R F, MG, LPA, FERR, ADIFF, LIPID, ANEU, CBC, FES, GFR, CMP #### [place] [address] Platelet 298 10 3/mcL Normal 150-450 [facility] ([place] Comment on above: Performed By: #### R F, MG, LPA, FERR, ADIFF, LIPID, ANEU, CBC, FES, GFR, CMP #### [address] [address] Platelet mean volume (Bld) [Entitic vol] 7.4 fL Normal 6.4-10.5 [facility] ([place] Comment on above: Performed By: #### R F, MG, LPA, FERR, ADIFF, LIPID, ANEU, CBC, FES, GFR, CMP #### [address] [address] RBC 4.00 10 6/mcL Low 4.50-6.00 [facility] ([place] Comment on above: Performed By: #### R F, MG, LPA, FERR, ADIFF, LIPID, ANEU, CBC, FES, GFR, CMP #### [address] [address] WBC 15.4 10 3/mcL High 4.5-10.8 [facility] ([place] Comment on above: Performed By: #### R F, MG, LPA, FERR, ADIFF, LIPID, ANEU, CBC, FES, GFR, CMP #### [address] [address] Erythrocyte distribution width (RBC) [Ratio] 19.4 % High 11.5-15.5 [facility] ([place] Comment on above: Performed By: #### G FR, ESR, ADIFF, CBC, CMP, ANEU #### [address] [address] Hematocrit (Bld) [Volume fraction] 28.4 % Low 40.0-52.0 [facility] ([place] Comment on above: Performed By: #### G FR, ESR, ADIFF, CBC, CMP, ANEU #### [address] [address] Hgb 8.3 G/dL Low 13.0-17.5 [facility] ([place] Comment on above: Performed By: #### G FR, ESR, ADIFF, CBC, CMP, ANEU #### [place] [address] MCH (RBC) [Entitic mass] 20.7 pg Low 27.0-33.0 [facility] ([place] Comment on above: Performed By: #### G FR, ESR, ADIFF, CBC, CMP, ANEU #### [place] [address] MCHC 29.1 G/dL Low 32.0-36.0 [facility] ([place] Comment on above: Performed By: #### G FR, ESR, ADIFF, CBC, CMP, ANEU #### [place] [address] MCV (RBC) [Entitic vol] 71.0 fL Low 81.0-100.0 [facility] ([place] Comment on above: Performed By: #### G FR, ESR, ADIFF, CBC, CMP, ANEU #### [place] [address] Platelet 298 10 3/mcL Normal 150-450 [facility] ([place] Comment on above: Performed By: #### G FR, ESR, ADIFF, CBC, CMP, ANEU #### [place] [address] Platelet mean volume (Bld) [Entitic vol] 7.3 fL Normal 6.4-10.5 [facility] ([place] Comment on above: Performed By: #### G FR, ESR, ADIFF, CBC, CMP, ANEU #### [place] [address] RBC 4.00 10 6/mcL Low 4.50-6.00 [facility] ([place] Comment on above: Performed By: #### G FR, ESR, ADIFF, CBC, CMP, ANEU #### [place] [address] WBC 16.2 10 3/mcL High 4.5-10.8 [facility] ([place] Comment on above: Performed By: #### G FR, ESR, ADIFF, CBC, CMP, ANEU #### [place] [address] Otto 07-01-2023 Potassium [Moles/Vol] 4.6 mmol/L Normal 3.5-5.0 [facility] ([place]) Comment on above: Result Comment: Spec imen slightly hemolyzed. Performed By: #### G FR, ESR, ADIFF, CBC, CMP, ANEU #### [facility] [address] [place] [id number] LABORATORYOrdered By: Nevaeh Marinelli on 07-01-2023 aPTT Coag (Bld) [Time] 88.9 s High 25.0 - 35.0 seconds AH Coagulation S Comment on above: Interpretive Data: F or Heparin anticoagulation therapy, the recommended therapeutic range is: 54-77 seconds (APTT Correlation with Anti-Xa therapeutic range of 0.3-0.7 units/ml). PLEASE REFERENCE THE PHARMACY PROTOCOL FOR DOSING. Heparin dose (APTT) Heparin IV (07/01/23 11:24 AM) Normal AH Coagulation S LABORATORYOrdered By: SYSTEM SYSTEM on 07-01-2023 Basophils (Bld) [#/Vol] 0.0 103/mcL Normal 0.0 - 0.3 10^3/mcL AH Workflow SS Basophils/100 WBC (Bld) 0.1 % Normal 0.0 - 2.5 % AH Workflow SS Calcium [Mass/Vol] 8.8 mg/dL Normal 8.7 - 10. 4 mg/dL AH ADM SS Chloride [Moles/Vol] 100 mmol/L Normal 98 - 11 0 mEq/L AH ADM SS CO2 [Moles/Vol] 30 mmol/L Normal 22 - 32 mEq/L AH ADM SS Creatinine [Mass/Vol] 0.88 mg/dL Normal 0.60 - 1.40 mg/dL AH ADM SS Electrolyte Balance 7.0 mEq/L Normal 4.0 - 15 .0 mEq/L AH ADM SS Eosinophils (Bld) [#/Vol] 0.1 103/mcL Normal 0.0 - 0.7 10^3/mcL AH Workflow SS Eosinophils/100 WBC (Bld) 0.7 % Normal 0.0 - 6.0 % AH Workflow SS Erythrocyte distribution width (RBC) [Ratio] 19.3 % High 11.5 - 15.5 % AH Workflow SS GFR/1.73 sq M.predicted among blacks MDRD (S/P/Bld) [Vol rate/Area] ml/min/1.73sqm Invalid Interpretation Code [facility] Comment on above: Interpretive Data: GFR Population mean for , Non- Americans Ages 20-29 = 116 mL/min/1.73 sq.m. Ages 30-39 = 107 mL/min/1.73 sq.m. Ages 40-49 = 99 mL/min/1.73 sq.m. Ages 50-59 = 93 mL/min/1.73 sq.m. Ages 60-69 = 85 mL/min/1.73 sq.m. Ages 70+ = 75 mL/min/1.73 sq.m. Chronic Kidney Disease: Less than 60 mL/min/1.73 square meters End Stage Renal Disease: Less than 15 mL/min/1.73 square meters GFR/1.73 sq M.predicted among non-blacks MDRD (S/P/Bld) [Vol rate/Area] ml/min/1.73sqm Invalid Interpretation Code [facility] Comment on above: Interpretive Data: GFR Population mean for , Non- Americans Ages 20-29 = 116 mL/min/1.73 sq.m. Ages 30-39 = 107 mL/min/1.73 sq.m. Ages 40-49 = 99 mL/min/1.73 sq.m. Ages 50-59 = 93 mL/min/1.73 sq.m. Ages 60-69 = 85 mL/min/1.73 sq.m. Ages 70+ = 75 mL/min/1.73 sq.m. Chronic Kidney Disease: Less than 60 mL/min/1.73 square meters End Stage Renal Disease: Less than 15 mL/min/1.73 square meters Glucose [Mass/Vol] 243 mg/dL High 70 - 110 mg/dL ADM SS Hematocrit (Bld) [Volume fraction] 28.5 % Low 40.0 - 52.0 % Workflow SS Hemoglobin (Bld) [Mass/Vol] 8.3 G/dL Low 13.0 - 17.5 G/dL AH Workflow SS Lymphocytes (Bld) [#/Vol] 1.4 103/mcL Normal 0.9 - 4.3 10^3/mcL Workflow SS Lymphocytes/100 WBC (Bld) 9.4 % Low 20.0 - 40.0 % AH Workflow SS MCH (RBC) [Entitic mass] 20.6 pg Low 27.0 - 33.0 pg AH Workflow SS MCHC 28.9 G/dL Low 32.0 - 36.0 G/dL AH Workflow SS MCV (RBC) [Entitic vol] 71.3 fL Low 81.0 - 100.0 fL AH Workflow SS Monocytes (Bld) [#/Vol] 0.8 103/mcL Normal 0.1 - 1.4 10^3/mcL AH Workflow SS Monocytes/100 WBC (Bld) 5.0 % Normal 2.0 - 13.0 % AH Workflow SS Neutrophils (Bld) [#/Vol] 13.1 103/mcL High 2.3 - 8.1 10^3/mcL AH Workflow SS Neutrophils/100 WBC (Bld) 84.8 % High 50.0 - 75.0 % AH Workflow SS Platelet mean volume (Bld) [Entitic vol] 7.4 fL Normal 6.4 - 10.5 fL AH Workflow SS Platelets (Bld) [#/Vol] 298 103/mcL Normal 150 - 450 10^3/mcL AH Workflow SS RBC (Bld) [#/Vol] 4.00 106/mcL Low 4.50 - 6.0 0 10^6/mcL AH Workflow SS Sodium [Moles/Vol] 137 mmol/L Normal 136 - 145 mEq/L AH ADM SS Urea nitrogen [Mass/Vol] 31.0 mg/dL High 8.0 - 22.0 mg/dL AH ADM SS Urea nitrogen/Creatinine [Mass ratio] 35.2 ratio High 10.0 - 22.0 ratio AH ADM SS WBC (Bld) [#/Vol] 15.4 103/mcL High 4.5 - 10.8 10^3/mcL AH Workflow SS Basophils (Bld) [#/Vol] 0.0 103/mcL Normal 0.0 - 0.3 10^3/mcL AH Workflow SS Basophils/100 WBC (Bld) 0.3 % Normal 0.0 - 2.5 % AH Workflow SS Calcium [Mass/Vol] 9.1 mg/dL Normal 8.7 - 10. 4 mg/dL AH ADM SS Chloride [Moles/Vol] 101 mmol/L Normal 98 - 11 0 mEq/L AH ADM SS CO2 [Moles/Vol] 33 mmol/L High 22 - 32 mEq/L AH ADM SS Creatinine [Mass/Vol] 0.93 mg/dL Normal 0.60 - 1.40 mg/dL ADM SS Electrolyte Balance 3.0 mEq/L Low 4.0 - 15 .0 mEq/L ADM SS Eosinophils (Bld) [#/Vol] 0.1 103/mcL Normal 0.0 - 0.7 10^3/mcL Workflow SS Eosinophils/100 WBC (Bld) 0.4 % Normal 0.0 - 6.0 % Workflow SS Erythrocyte distribution width (RBC) [Ratio] 19.4 % High 11.5 - 15.5 % Workflow SS GFR/1.73 sq M.predicted among blacks MDRD (S/P/Bld) [Vol rate/Area] ml/min/1.73sqm Invalid Interpretation Code ADM SS Comment on above: Interpretive Data: GFR Population mean for , Non- Americans Ages 20-29 = 116 mL/min/1.73 sq.m. Ages 30-39 = 107 mL/min/1.73 sq.m. Ages 40-49 = 99 mL/min/1.73 sq.m. Ages 50-59 = 93 mL/min/1.73 sq.m. Ages 60-69 = 85 mL/min/1.73 sq.m. Ages 70+ = 75 mL/min/1.73 sq.m. Chronic Kidney Disease: Less than 60 mL/min/1.73 square meters End Stage Renal Disease: Less than 15 mL/min/1.73 square meters GFR/1.73 sq M.predicted among non-blacks MDRD (S/P/Bld) [Vol rate/Area] ml/min/1.73sqm Invalid Interpretation Code ADM Comment on above: Interpretive Data: GFR Population mean for , Non- Americans Ages 20-29 = 116 mL/min/1.73 sq.m. Ages 30-39 = 107 mL/min/1.73 sq.m. Ages 40-49 = 99 mL/min/1.73 sq.m. Ages 50-59 = 93 mL/min/1.73 sq.m. Ages 60-69 = 85 mL/min/1.73 sq.m. Ages 70+ = 75 mL/min/1.73 sq.m. Chronic Kidney Disease: Less than 60 mL/min/1.73 square meters End Stage Renal Disease: Less than 15 mL/min/1.73 square meters Glucose [Mass/Vol] 199 mg/dL High 70 - 110 mg/dL ADM SS Hematocrit (Bld) [Volume fraction] 28.4 % Low 40.0 - 52.0 % AH Workflow SS Hemoglobin (Bld) [Mass/Vol] 8.3 G/dL Low 13.0 - 17.5 G/dL AH Workflow SS Lymphocytes (Bld) [#/Vol] 1.4 103/mcL Normal 0.9 - 4.3 10^3/mcL AH Workflow SS Lymphocytes/100 WBC (Bld) 8.4 % Low 20.0 - 40.0 % AH Workflow SS Magnesium [Mass/Vol] 2.1 mg/dL Normal 1.6 - 2 .4 mg/dL ADM SS MCH (RBC) [Entitic mass] 20.7 pg Low 27.0 - 33.0 pg AH Workflow SS MCHC 29.1 G/dL Low 32.0 - 36.0 G/dL Workflow SS MCV (RBC) [Entitic vol] 71.0 fL Low 81.0 - 100.0 fL Workflow SS Monocytes (Bld) [#/Vol] 0.9 103/mcL Normal 0.1 - 1.4 10^3/mcL AH Workflow SS Monocytes/100 WBC (Bld) 5.5 % Normal 2.0 - 13.0 % AH Workflow SS Neutrophils (Bld) [#/Vol] 13.9 103/mcL High 2.3 - 8.1 10^3/mcL AH Workflow SS Neutrophils/100 WBC (Bld) 85.4 % High 50.0 - 75.0 % Workflow SS Platelet mean volume (Bld) [Entitic vol] 7.3 fL Normal 6.4 - 10.5 fL AH Workflow SS Platelets (Bld) [#/Vol] 298 103/mcL Normal 150 - 450 10^3/mcL AH Workflow SS RBC (Bld) [#/Vol] 4.00 106/mcL Low 4.50 - 6.0 0 10^6/mcL AH Workflow SS Sodium [Moles/Vol] 137 mmol/L Normal 136 - 145 mEq/L ADM SS Urea nitrogen [Mass/Vol] 31.0 mg/dL High 8.0 - 22.0 mg/dL AH ADM SS Urea nitrogen/Creatinine [Mass ratio] 33.3 ratio High 10.0 - 22.0 ratio AH ADM SS WBC (Bld) [#/Vol] 16.2 103/mcL High 4.5 - 10.8 10^3/mcL AH Workflow SS LABORATORYOrdered By: Teetee Watkins on 07-01-2023 aPTT Coag (Bld) [Time] 53.4 s High 25.0 - 35.0 seconds AH [facility] SS Comment on above: Interpretive Data: F or Heparin anticoagulation therapy, the recommended therapeutic range is: 54-77 seconds (APTT Correlation with Anti-Xa therapeutic range of 0.3-0.7 units/ml). PLEASE REFERENCE THE PHARMACY PROTOCOL FOR DOSING. Heparin dose (APTT) Heparin IV (07/01/23 4:43 AM) Normal AH Coagulation S LIPOAon 07-01-2023 Lipoprotein a [Mass/Vol] mg/dL Normal <30 [facility] ([place]) Comment on above: Result Comment: Perf ormed By: [facility] [address] [place] [address] Validation Intern: Osmel Dao III, M.D. CLIA#: [id number] Performed By: #### G FR, ESR, ADIFF, CBC, CMP, ANEU #### [place] [address] Laboratory - Chemistry and C hemistry - challengeOrdered By: SYSTEM SYSTEM on 07-01-2023 Potassium [Moles/Vol] 4.6 mmol/L Normal 3.5 - 5.0 mEq/L AH ADM SS Comment on above: Result Comment: Spec imen slightly hemolyzed. MGon 07-01-2023 Magnesium [Mass/Vol] 2.1 mg/dL Normal 1.6-2.4 [facility] ([place]) Comment on above: Performed By: #### G FR, ESR, ADIFF, CBC, CMP, ANEU #### [address] [address] RFon 07-01-2023 Rheumatoid Factor 192.1 High <=5.9 [facility] ([place] Comment on above: Result Comment: RF I gM Antibody by Enzyme Immunoassay: Negative < or = 6 Positive > 6 A positive result indicates the presence of RF antibodies and suggests the possibility of rheumatoid arthritis. A negative result indicates no RF IgM antibody or levels below the negative cut-off of the assay. Results of this assay should be used in conjunction with clinical findings and other serological tests. These results were obtained with the [employer] QUANTA Lite RF IgM JAQUAN. RF IgM values obtained with different manufacturers' assay methods may not be used interchangeably. The magnitude of the reported IgM levels cannot be correlated to an endpoint titer. Performed By: #### G FR, ESR, ADIFF, CBC, CMP, ANEU #### [address] [address] .Auto Diffon 06-30-2023 Basophil, Absolute 0.0 10 3/mcL Normal 0.0-0.3 [facility] ([place]) Comment on above: Performed By: #### R F, MG, LPA, FERR, ADIFF, LIPID, ANEU, CBC, FES, GFR, CMP #### [address] [address] Basophils/100 WBC (Bld) 0.1 % Normal 0.0-2.5 [facility] ([place] Comment on above: Performed By: #### R F, MG, LPA, FERR, ADIFF, LIPID, ANEU, CBC, FES, GFR, CMP #### [address] [address] Eosinophil, Absolute 0.0 10 3/mcL Normal 0.0-0.7 [facility] ([place]) Comment on above: Performed By: #### R F, MG, LPA, FERR, ADIFF, LIPID, ANEU, CBC, FES, GFR, CMP #### [address] [address] Eosinophils/100 WBC (Bld) 0.0 % Normal 0.0-6.0 [facility] ([place]) Comment on above: Performed By: #### R F, MG, LPA, FERR, ADIFF, LIPID, ANEU, CBC, FES, GFR, CMP #### [address] [address] Lymphocyte, Absolute 1.1 10 3/mcL Normal 0.9-4.3 [facility] ([place]) Comment on above: Performed By: #### R F, MG, LPA, FERR, ADIFF, LIPID, ANEU, CBC, FES, GFR, CMP #### [address] [address] Lymphocytes/100 WBC (Bld) 7.3 % Low 20.0-40.0 [facility] ([place] Comment on above: Performed By: #### R F, MG, LPA, FERR, ADIFF, LIPID, ANEU, CBC, FES, GFR, CMP #### [address] [address] Monocyte, Absolute 0.3 10 3/mcL Normal 0.1-1.4 [facility] ([place]) Comment on above: Performed By: #### R F, MG, LPA, FERR, ADIFF, LIPID, ANEU, CBC, FES, GFR, CMP #### [address] [address] Monocytes/100 WBC (Bld) 2.4 % Normal 2.0-13.0 [facility] ([place] Comment on above: Performed By: #### R F, MG, LPA, FERR, ADIFF, LIPID, ANEU, CBC, FES, GFR, CMP #### [address] [address] Neutrophils/100 WBC (Bld) 90.2 % High 50.0-75.0 [facility] ([place] Comment on above: Performed By: #### R F, MG, LPA, FERR, ADIFF, LIPID, ANEU, CBC, FES, GFR, CMP #### [address] [address] .GFRon 06-30-2023 GFR >60 Normal [facility] ([place] Comment on above: Result Comment: GFR Population mean for , Non- Americans Ages 20-29 = 116 mL/min/1.73 sq.m. Ages 30-39 = 107 mL/min/1.73 sq.m. Ages 40-49 = 99 mL/min/1.73 sq.m. Ages 50-59 = 93 mL/min/1.73 sq.m. Ages 60-69 = 85 mL/min/1.73 sq.m. Ages 70+ = 75 mL/min/1.73 sq.m. Chronic Kidney Disease: Less than 60 mL/min/1.73 square meters End Stage Renal Disease: Less than 15 mL/min/1.73 square meters Performed By: #### R F, MG, LPA, FERR, ADIFF, LIPID, ANEU, CBC, FES, GFR, CMP #### [place] [id number] GFR Non- >60 Normal [facility] ([place] Comment on above: Result Comment: GFR Population mean for , Non- Americans Ages 20-29 = 116 mL/min/1.73 sq.m. Ages 30-39 = 107 mL/min/1.73 sq.m. Ages 40-49 = 99 mL/min/1.73 sq.m. Ages 50-59 = 93 mL/min/1.73 sq.m. Ages 60-69 = 85 mL/min/1.73 sq.m. Ages 70+ = 75 mL/min/1.73 sq.m. Chronic Kidney Disease: Less than 60 mL/min/1.73 square meters End Stage Renal Disease: Less than 15 mL/min/1.73 square meters Performed By: #### R F, MG, LPA, FERR, ADIFF, LIPID, ANEU, CBC, FES, GFR, CMP #### [place] [id number] GFR >60 Normal [facility] ([place] Comment on above: Result Comment: GFR Population mean for , Non- Americans Ages 20-29 = 116 mL/min/1.73 sq.m. Ages 30-39 = 107 mL/min/1.73 sq.m. Ages 40-49 = 99 mL/min/1.73 sq.m. Ages 50-59 = 93 mL/min/1.73 sq.m. Ages 60-69 = 85 mL/min/1.73 sq.m. Ages 70+ = 75 mL/min/1.73 sq.m. Chronic Kidney Disease: Less than 60 mL/min/1.73 square meters End Stage Renal Disease: Less than 15 mL/min/1.73 square meters Performed By: #### R F, MG, LPA, FERR, ADIFF, LIPID, ANEU, CBC, FES, GFR, CMP #### [address] [address] GFR Non- >60 Normal [facility] ([place] Comment on above: Result Comment: GFR Population mean for , Non- Americans Ages 20-29 = 116 mL/min/1.73 sq.m. Ages 30-39 = 107 mL/min/1.73 sq.m. Ages 40-49 = 99 mL/min/1.73 sq.m. Ages 50-59 = 93 mL/min/1.73 sq.m. Ages 60-69 = 85 mL/min/1.73 sq.m. Ages 70+ = 75 mL/min/1.73 sq.m. Chronic Kidney Disease: Less than 60 mL/min/1.73 square meters End Stage Renal Disease: Less than 15 mL/min/1.73 square meters Performed By: #### R F, MG, LPA, FERR, ADIFF, LIPID, ANEU, CBC, FES, GFR, CMP #### [address] [address] .NEUABSon 06-30-2023 Neutrophil, Absolute 13.0 10 3/mcL High 2.3-8.1 [facility] ([place] Comment on above: Performed By: #### R F, MG, LPA, FERR, ADIFF, LIPID, ANEU, CBC, FES, GFR, CMP #### [address] [address] APTTon 06-30-2023 aPTT Coag (Bld) [Time] 106.9 s High 25.0-35.0 [facility] ([place]) Comment on above: Result Comment: Spec imen hemolyzed. Results may be affected. For Heparin anticoagulation therapy, the recommended therapeutic range is: 54-77 seconds (APTT Correlation with Anti-Xa therapeutic range of 0.3-0.7 units/ml). PLEASE REFERENCE THE PHARMACY PROTOCOL FOR DOSING. Heparin dose (APTT) Heparin IV Normal [facility] ([place] aPTT Coag (Bld) [Time] 72.8 s High 25.0-35.0 [facility] ([place]) Comment on above: Result Comment: For Heparin anticoagulation therapy, the recommended therapeutic range is: 54-77 seconds (APTT Correlation with Anti-Xa therapeutic range of 0.3-0.7 units/ml). PLEASE REFERENCE THE PHARMACY PROTOCOL FOR DOSING. Heparin dose (APTT) Heparin IV Normal [facility] ([place] aPTT Coag (Bld) [Time] 64.5 s High 25.0-35.0 [facility] ([place] Comment on above: Result Comment: For Heparin anticoagulation therapy, the recommended therapeutic range is: 54-77 seconds (APTT Correlation with Anti-Xa therapeutic range of 0.3-0.7 units/ml). PLEASE REFERENCE THE PHARMACY PROTOCOL FOR DOSING. Heparin dose (APTT) Heparin IV Normal [facility]) BMPon 06-30-2023 BUN/Creatinine Ratio 31.1 ratio High 10.0-22.0 [facility]) Comment on above: Performed By: #### R F, MG, LPA, FERR, ADIFF, LIPID, ANEU, CBC, FES, GFR, CMP #### [address] [address] Calcium [Mass/Vol] 9.0 mg/dL Normal 8.7-10.4 [facility]) Comment on above: Performed By: #### R F, MG, LPA, FERR, ADIFF, LIPID, ANEU, CBC, FES, GFR, CMP #### [address] [address] Chloride [Moles/Vol] 102 mmol/L Normal 98-110 [facility]) Comment on above: Performed By: #### R F, MG, LPA, FERR, ADIFF, LIPID, ANEU, CBC, FES, GFR, CMP #### [address] [address] CO2 [Moles/Vol] 26 mmol/L Normal 22-32 [facility] ([place]) Comment on above: Performed By: #### R F, MG, LPA, FERR, ADIFF, LIPID, ANEU, CBC, FES, GFR, CMP #### [address] [address] Creatinine [Mass/Vol] 0.90 mg/dL Normal 0.60-1.40 [facility] ([place]) Comment on above: Performed By: #### R F, MG, LPA, FERR, ADIFF, LIPID, ANEU, CBC, FES, GFR, CMP #### [address] [address] Electrolyte Balance 3.0 mEq/L Low 4.0-15.0 [facility] ([place]) Comment on above: Performed By: #### R F, MG, LPA, FERR, ADIFF, LIPID, ANEU, CBC, FES, GFR, CMP #### [address] [address] Glucose [Mass/Vol] 209 mg/dL High 70-110 [facility] ([place]) Comment on above: Performed By: #### R F, MG, LPA, FERR, ADIFF, LIPID, ANEU, CBC, FES, GFR, CMP #### [address] [address] Potassium [Moles/Vol] 5.0 mmol/L Normal 3.5-5.0 [facility] ([place]) Comment on above: Performed By: #### R F, MG, LPA, FERR, ADIFF, LIPID, ANEU, CBC, FES, GFR, CMP #### [address] [address] Sodium [Moles/Vol] 131 mmol/L Low 136-145 [facility] ([place]) Comment on above: Performed By: #### R F, MG, LPA, FERR, ADIFF, LIPID, ANEU, CBC, FES, GFR, CMP #### [address] [address] Urea nitrogen [Mass/Vol] 28.0 mg/dL High 8.0-22.0 [facility] ([place]) Comment on above: Performed By: #### R F, MG, LPA, FERR, ADIFF, LIPID, ANEU, CBC, FES, GFR, CMP #### [address] [address] BUN/Creatinine Ratio 27.2 ratio High 10.0-22.0 [facility] ([place]) Comment on above: Performed By: #### R F, MG, LPA, FERR, ADIFF, LIPID, ANEU, CBC, FES, GFR, CMP #### [address] [address] Calcium [Mass/Vol] 9.3 mg/dL Normal 8.7-10.4 [facility] ([place] Comment on above: Performed By: #### R F, MG, LPA, FERR, ADIFF, LIPID, ANEU, CBC, FES, GFR, CMP #### [place] [id number] Chloride [Moles/Vol] 99 mmol/L Normal 98-110 [facility] ([place] Comment on above: Performed By: #### R F, MG, LPA, FERR, ADIFF, LIPID, ANEU, CBC, FES, GFR, CMP #### [place] [address] CO2 [Moles/Vol] 33 mmol/L High 22-32 [facility] ([place] Comment on above: Performed By: #### R F, MG, LPA, FERR, ADIFF, LIPID, ANEU, CBC, FES, GFR, CMP #### [place] [id number] Creatinine [Mass/Vol] 0.92 mg/dL Normal 0.60-1.40 [facility] ([place]) Comment on above: Performed By: #### R F, MG, LPA, FERR, ADIFF, LIPID, ANEU, CBC, FES, GFR, CMP #### [place] [id number] Electrolyte Balance 1.0 mEq/L Low 4.0-15.0 [facility] ([place]) Comment on above: Performed By: #### R F, MG, LPA, FERR, ADIFF, LIPID, ANEU, CBC, FES, GFR, CMP #### [place] [id number] Glucose [Mass/Vol] 239 mg/dL High 70-110 [facility] ([place] Comment on above: Performed By: #### R F, MG, LPA, FERR, ADIFF, LIPID, ANEU, CBC, FES, GFR, CMP #### [place] [address] Potassium [Moles/Vol] 5.1 mmol/L High 3.5-5.0 [facility] ([place] Comment on above: Performed By: #### R F, MG, LPA, FERR, ADIFF, LIPID, ANEU, CBC, FES, GFR, CMP #### [place] [address] Sodium [Moles/Vol] 133 mmol/L Low 136-145 [facility] ([place] Comment on above: Performed By: #### R F, MG, LPA, FERR, ADIFF, LIPID, ANEU, CBC, FES, GFR, CMP #### [place] [address] Urea nitrogen [Mass/Vol] 25.0 mg/dL High 8.0-22.0 [facility] ([place] Comment on above: Performed By: #### R F, MG, LPA, FERR, ADIFF, LIPID, ANEU, CBC, FES, GFR, CMP #### [place] [address] CBCon 06-30-2023 Erythrocyte distribution width (RBC) [Ratio] 19.4 % High 11.5-15.5 [facility] ([place] Comment on above: Performed By: #### R F, MG, LPA, FERR, ADIFF, LIPID, ANEU, CBC, FES, GFR, CMP #### [place] [address] Hematocrit (Bld) [Volume fraction] 31.4 % Low 40.0-52.0 [facility] ([place] Comment on above: Performed By: #### R F, MG, LPA, FERR, ADIFF, LIPID, ANEU, CBC, FES, GFR, CMP #### [place] [address] Hgb 8.8 G/dL Low 13.0-17.5 [facility] ([place] Comment on above: Performed By: #### R F, MG, LPA, FERR, ADIFF, LIPID, ANEU, CBC, FES, GFR, CMP #### [place] [id number] MCH (RBC) [Entitic mass] 20.2 pg Low 27.0-33.0 [facility] ([place] Comment on above: Performed By: #### R F, MG, LPA, FERR, ADIFF, LIPID, ANEU, CBC, FES, GFR, CMP #### [place] [address] MCHC 28.1 G/dL Low 32.0-36.0 [facility] ([place] Comment on above: Performed By: #### R F, MG, LPA, FERR, ADIFF, LIPID, ANEU, CBC, FES, GFR, CMP #### [place] [address] MCV (RBC) [Entitic vol] 71.9 fL Low 81.0-100.0 [facility] ([place] Comment on above: Performed By: #### R F, MG, LPA, FERR, ADIFF, LIPID, ANEU, CBC, FES, GFR, CMP #### [place] [address] Platelet 328 10 3/mcL Normal 150-450 [facility] ([place] Comment on above: Performed By: #### R F, MG, LPA, FERR, ADIFF, LIPID, ANEU, CBC, FES, GFR, CMP #### [place] [address] Platelet mean volume (Bld) [Entitic vol] 7.4 fL Normal 6.4-10.5 [facility] ([place] Comment on above: Performed By: #### R F, MG, LPA, FERR, ADIFF, LIPID, ANEU, CBC, FES, GFR, CMP #### [place] [address] RBC 4.37 10 6/mcL Low 4.50-6.00 [facility] ([place] Comment on above: Performed By: #### R F, MG, LPA, FERR, ADIFF, LIPID, ANEU, CBC, FES, GFR, CMP #### [place] [address] WBC 14.4 10 3/mcL High 4.5-10.8 [facility] ([place] Comment on above: Performed By: #### R F, MG, LPA, FERR, ADIFF, LIPID, ANEU, CBC, FES, GFR, CMP #### [address] [address] [place] 06-30-2023 Potassium [Moles/Vol] 4.3 mmol/L Normal 3.5-5.0 [facility] ([place] Comment on above: Performed By: #### R F, MG, LPA, FERR, ADIFF, LIPID, ANEU, CBC, FES, GFR, CMP #### [address] [address] LABORATORYOrdered By: Marianne Rhoades on 06-30-2023 aPTT Coag (Bld) [Time] 106.9 s High 25.0 - 35.0 seconds [facility] SS Comment on above: Result Comment: Spec imen hemolyzed. Results may be affected. Interpretive Data: F or Heparin anticoagulation therapy, the recommended therapeutic range is: 54-77 seconds (APTT Correlation with Anti-Xa therapeutic range of 0.3-0.7 units/ml). PLEASE REFERENCE THE PHARMACY PROTOCOL FOR DOSING. Heparin dose (APTT) Heparin IV (06/30/23 7:59 PM) Normal Coagulation S LABORATORYOrdered By: SYSTEM SYSTEM on 06-30-2023 Magnesium [Mass/Vol] 2.1 mg/dL Normal 1.6 - 2 .4 mg/dL ADM SS MGon 06-30-2023 Magnesium [Mass/Vol] 2.1 mg/dL Normal 1.6-2.4 [facility] ([place]) Comment on above: Performed By: #### R F, MG, LPA, FERR, ADIFF, LIPID, ANEU, CBC, FES, GFR, CMP #### [address] [address] XR CHEST 2 VIEWSon 3 XR CHEST 2 VIEWS ORIGINAL EXAMINATION: TWO XRAY VIEWS OF THE CHEST 06/29/2023 8:35 pm COMPARISON: 06/29/2023 HISTORY: ORDERING SYSTEM PROVIDED HISTORY: Reason for Exam: Evaluate for pneumothorax/lead position post pacer/ICD insertion FINDINGS: There is a left chest wall pacemaker with appropriately placed leads. The cardiomediastinal silhouette appears stable, prominent. There is scattered bilateral pulmonary opacities including nodular opacity in the right upper lobe. There is no definite evidence of pleural effusion. There is no evidence of pneumothorax. No acute fracture is identified. IMPRESSION: 1. No pneumothorax identified. 2. Stable bilateral pulmonary opacities including 1.3 cm nodular opacity in the right upper lobe, for which nonemergent CT of the chest is recommended for further evaluation. Interpreted by: Chance Cisneros Preliminary Report By: Chance Cisneros Electronically signed By Chance Cisneros Dictated Date: 06/30/2023 12:03:21 AM Prelim Date: 06/30/2023 12:06:59 AM Sign Date: 06/30/2023 12:06:59 AM Ordering Provider: LOU Ignacio [facility] ([place]) .Auto Diffon 06-29-2023 Basophil, Absolute 0.0 10 3/mcL Normal 0.0-0.3 [facility] ([place] Comment on above: Performed By: #### G FR, ESR, ADIFF, CBC, CMP, ANEU #### [address] [address] Basophils/100 WBC (Bld) 0.2 % Normal 0.0-2.5 [facility] ([place] Comment on above: Performed By: #### G FR, ESR, ADIFF, CBC, CMP, ANEU #### [address] [address] Eosinophil, Absolute 0.0 10 3/mcL Normal 0.0-0.7 [facility] ([place]) Comment on above: Performed By: #### G FR, ESR, ADIFF, CBC, CMP, ANEU #### [address] [address] Eosinophils/100 WBC (Bld) 0.1 % Normal 0.0-6.0 [facility] ([place] Comment on above: Performed By: #### G FR, ESR, ADIFF, CBC, CMP, ANEU #### [address] [address] Lymphocyte, Absolute 0.5 10 3/mcL Low 0.9-4.3 [facility] ([place]) Comment on above: Performed By: #### G FR, ESR, ADIFF, CBC, CMP, ANEU #### [address] [address] Lymphocytes/100 WBC (Bld) 2.9 % Low 20.0-40.0 [facility] ([place] Comment on above: Performed By: #### G FR, ESR, ADIFF, CBC, CMP, ANEU #### [address] [address] Monocyte, Absolute 0.2 10 3/mcL Normal 0.1-1.4 [facility] ([place] Comment on above: Performed By: #### G FR, ESR, ADIFF, CBC, CMP, ANEU #### [address] [address] Monocytes/100 WBC (Bld) 1.3 % Low 2.0-13.0 [facility] ([place] Comment on above: Performed By: #### G FR, ESR, ADIFF, CBC, CMP, ANEU #### [address] [address] Neutrophils/100 WBC (Bld) 95.5 % High 50.0-75.0 [facility] ([place] Comment on above: Performed By: #### G FR, ESR, ADIFF, CBC, CMP, ANEU #### [address] [address] .GFRon 06-29-2023 GFR >60 Normal [facility] ([place] Comment on above: Result Comment: GFR Population mean for , Non- Americans Ages 20-29 = 116 mL/min/1.73 sq.m. Ages 30-39 = 107 mL/min/1.73 sq.m. Ages 40-49 = 99 mL/min/1.73 sq.m. Ages 50-59 = 93 mL/min/1.73 sq.m. Ages 60-69 = 85 mL/min/1.73 sq.m. Ages 70+ = 75 mL/min/1.73 sq.m. Chronic Kidney Disease: Less than 60 mL/min/1.73 square meters End Stage Renal Disease: Less than 15 mL/min/1.73 square meters Performed By: #### G FR, ESR, ADIFF, CBC, CMP, ANEU #### [facility] [address] [place], [place] [address] GFR Non- >60 Normal [facility] ([place] Comment on above: Result Comment: GFR Population mean for , Non- Americans Ages 20-29 = 116 mL/min/1.73 sq.m. Ages 30-39 = 107 mL/min/1.73 sq.m. Ages 40-49 = 99 mL/min/1.73 sq.m. Ages 50-59 = 93 mL/min/1.73 sq.m. Ages 60-69 = 85 mL/min/1.73 sq.m. Ages 70+ = 75 mL/min/1.73 sq.m. Chronic Kidney Disease: Less than 60 mL/min/1.73 square meters End Stage Renal Disease: Less than 15 mL/min/1.73 square meters Performed By: #### G FR, ESR, ADIFF, CBC, CMP, ANEU #### [place] [address] .NEUABSon 06-29-2023 Neutrophil, Absolute 14.8 10 3/mcL High 2.3-8.1 [facility] ([place]) Comment on above: Performed By: #### G FR, ESR, ADIFF, CBC, CMP, ANEU #### [place] [address] ANAon 06-29-2023 Nuclear Ab IF (S) [Titer] 40 {titer} Normal Neg 40 [facility] ([place]) Comment on above: Result Comment: DORA Screen and Titer methodology is an immunofluorescent technique utilizing Hep2 Substrate. Performed By: #### R F, MG, LPA, FERR, ADIFF, LIPID, ANEU, CBC, FES, GFR, CMP #### [address] [address] BGon 06-29-2023 Barometric Pressure 707 mmHg Normal [facility] ([place]) Comment on above: Performed By: #### G FR, ESR, ADIFF, CBC, CMP, ANEU #### [address] [address] Base excess Calc (Bld) [Moles/Vol] 3.4 mmol/L Normal [facility] ([place]) Comment on above: Performed By: #### G FR, ESR, ADIFF, CBC, CMP, ANEU #### [address] [address] CO2 [Moles/Vol] 32.0 mmol/L High 22.0-30.0 [facility] ([place] Comment on above: Performed By: #### G FR, ESR, ADIFF, CBC, CMP, ANEU #### [address] [address] HCO3 (Bld) [Moles/Vol] 30.2 mmol/L High 21.0-29.0 [facility] ([place]) Comment on above: Performed By: #### G FR, ESR, ADIFF, CBC, CMP, ANEU #### [place] [id number] Oxygen (Bld) [Partial pressure] 100.5 mm[Hg] Normal 74.0-108.0 [facility] ([place] Comment on above: Performed By: #### G FR, ESR, ADIFF, CBC, CMP, ANEU #### [place] [address] Oxygen saturation in Blood 97.8 % High 92.0-96.0 [facility] ([place] Comment on above: Performed By: #### G FR, ESR, ADIFF, CBC, CMP, ANEU #### [address] [address] pCO2 57.6 mmHg High 32.0-46.0 [facility] ([place] Comment on above: Performed By: #### G FR, ESR, ADIFF, CBC, CMP, ANEU #### [address] [address] pH (Bld) 7.338 [pH] Low 7.380-7.460 [facility] ([place] Comment on above: Performed By: #### G FR, ESR, ADIFF, CBC, CMP, ANEU #### [place] [id number] Barometric Pressure 734 mmHg Normal [facility] ([place] Comment on above: Performed By: #### G FR, ESR, ADIFF, CBC, CMP, ANEU #### [address] [address] Base excess Calc (Bld) [Moles/Vol] 1.4 mmol/L Normal [facility] ([place]) Comment on above: Performed By: #### G FR, ESR, ADIFF, CBC, CMP, ANEU #### [place] [id number] CO2 [Moles/Vol] 32.4 mmol/L High 22.0-30.0 [facility] ([place] Comment on above: Performed By: #### G FR, ESR, ADIFF, CBC, CMP, ANEU #### [place] [id number] HCO3 (Bld) [Moles/Vol] 30.4 mmol/L High 21.0-29.0 [facility] ([place] Comment on above: Performed By: #### G FR, ESR, ADIFF, CBC, CMP, ANEU #### [place] [id number] Oxygen (Bld) [Partial pressure] 64.7 mm[Hg] Low 74.0-108.0 [facility] ([place] Comment on above: Performed By: #### G FR, ESR, ADIFF, CBC, CMP, ANEU #### [place] [id number] Oxygen saturation in Blood 89.1 % Low 92.0-96.0 [facility] ([place] Comment on above: Performed By: #### G FR, ESR, ADIFF, CBC, CMP, ANEU #### [place] [id number] pCO2 67.8 mmHg Critically abnormal 32.0-46.0 [facility] ([place] Comment on above: Performed By: #### G FR, ESR, ADIFF, CBC, CMP, ANEU #### [place] [id number] pH (Bld) 7.269 [pH] Low 7.380-7.460 [facility] ([place] Comment on above: Performed By: #### G FR, ESR, ADIFF, CBC, CMP, ANEU #### [place] [address] CBCon 06-29-2023 Erythrocyte distribution width (RBC) [Ratio] 19.7 % High 11.5-15.5 [facility] ([place] Comment on above: Performed By: #### G FR, ESR, ADIFF, CBC, CMP, ANEU #### [place] [address] Hematocrit (Bld) [Volume fraction] 33.4 % Low 40.0-52.0 [facility] ([place] Comment on above: Performed By: #### G FR, ESR, ADIFF, CBC, CMP, ANEU #### [place] [address] Hgb 9.7 G/dL Low 13.0-17.5 [facility] ([place] Comment on above: Performed By: #### G FR, ESR, ADIFF, CBC, CMP, ANEU #### [place] [address] MCH (RBC) [Entitic mass] 20.8 pg Low 27.0-33.0 [facility] ([place] Comment on above: Performed By: #### G FR, ESR, ADIFF, CBC, CMP, ANEU #### [place] [address] MCHC 29.1 G/dL Low 32.0-36.0 [facility] ([place] Comment on above: Performed By: #### G FR, ESR, ADIFF, CBC, CMP, ANEU #### [place] [address] MCV (RBC) [Entitic vol] 71.6 fL Low 81.0-100.0 [facility] ([place] Comment on above: Performed By: #### G FR, ESR, ADIFF, CBC, CMP, ANEU #### [place] [address] Platelet 373 10 3/mcL Normal 150-450 [facility] ([place] Comment on above: Performed By: #### G FR, ESR, ADIFF, CBC, CMP, ANEU #### [place] [address] Platelet mean volume (Bld) [Entitic vol] 7.6 fL Normal 6.4-10.5 [facility] ([place] Comment on above: Performed By: #### G FR, ESR, ADIFF, CBC, CMP, ANEU #### [place] [address] RBC 4.66 10 6/mcL Normal 4.50-6.00 [facility] ([place] Comment on above: Performed By: #### G FR, ESR, ADIFF, CBC, CMP, ANEU #### [place] [address] WBC 15.5 10 3/mcL High 4.5-10.8 [facility] ([place] Comment on above: Performed By: #### G FR, ESR, ADIFF, CBC, CMP, ANEU #### [place] [address] CMPon 06-29-2023 Albumin Level 3.0 G/dL Low 3.2-4.8 [facility] ([place] Comment on above: Performed By: #### G FR, ESR, ADIFF, CBC, CMP, ANEU #### [place] [address] Albumin/Globulin [Mass ratio] 0.7 {ratio} Low 0.9-1.6 [facility] ([place] Comment on above: Performed By: #### G FR, ESR, ADIFF, CBC, CMP, ANEU #### [place] [address] ALP [Catalytic activity/Vol] 144 U/L High 38-126 [facility] ([place] Comment on above: Performed By: #### G FR, ESR, ADIFF, CBC, CMP, ANEU #### [place] [address] ALT [Catalytic activity/Vol] 18 U/L Normal 12-55 [facility] ([place] Comment on above: Performed By: #### G FR, ESR, ADIFF, CBC, CMP, ANEU #### [facility] [address] [place], [place] [address] AST [Catalytic activity/Vol] 17 U/L Normal 8-34 [facility] ([place] Comment on above: Performed By: #### G FR, ESR, ADIFF, CBC, CMP, ANEU #### [address] [address] Bili Total 0.60 mg/dL Normal 0.20-1.20 [facility] ([place] Comment on above: Result Comment: Use of this assay is not recommended for patients undergoing treatment with eltrombopag due to the potential for falsely elevated results. Performed By: #### G FR, ESR, ADIFF, CBC, CMP, ANEU #### [place] [id number] BUN/Creatinine Ratio 25.0 ratio High 10.0-22.0 [facility] ([place] Comment on above: Performed By: #### G FR, ESR, ADIFF, CBC, CMP, ANEU #### [address] [address] Calcium [Mass/Vol] 9.2 mg/dL Normal 8.7-10.4 [facility] ([place]) Comment on above: Performed By: #### G FR, ESR, ADIFF, CBC, CMP, ANEU #### [address] [address] Chloride [Moles/Vol] 98 mmol/L Normal 98-110 [facility] ([place] Comment on above: Performed By: #### G FR, ESR, ADIFF, CBC, CMP, ANEU #### [address] [address] CO2 [Moles/Vol] 30 mmol/L Normal 22-32 [facility] ([place] Comment on above: Performed By: #### G FR, ESR, ADIFF, CBC, CMP, ANEU #### [address] [address] Creatinine [Mass/Vol] 1.00 mg/dL Normal 0.60-1.40 [facility] ([place] Comment on above: Performed By: #### G FR, ESR, ADIFF, CBC, CMP, ANEU #### [address] [address] Electrolyte Balance 7.0 mEq/L Normal 4.0-15.0 [facility] ([place] Comment on above: Performed By: #### G FR, ESR, ADIFF, CBC, CMP, ANEU #### [address] [address] Globulin 4.1 G/dL High 1.5-3.8 [facility] ([place] Comment on above: Performed By: #### G FR, ESR, ADIFF, CBC, CMP, ANEU #### [address] [address] Glucose [Mass/Vol] 172 mg/dL High 70-110 [facility] ([place] Comment on above: Performed By: #### G FR, ESR, ADIFF, CBC, CMP, ANEU #### [address] [address] Potassium [Moles/Vol] 5.0 mmol/L Normal 3.5-5.0 [facility] ([place]) Comment on above: Performed By: #### G FR, ESR, ADIFF, CBC, CMP, ANEU #### [address] [address] Sodium [Moles/Vol] 135 mmol/L Low 136-145 [facility] ([place] Comment on above: Performed By: #### G FR, ESR, ADIFF, CBC, CMP, ANEU #### [address] [address] Total Protein 7.1 G/dL Normal 5.7-8.2 [facility] ([place] Comment on above: Result Comment: No te - New Reference Range in effect 20 Performed By: #### G FR, ESR, ADIFF, CBC, CMP, ANEU #### [address] [address] Urea nitrogen [Mass/Vol] 25.0 mg/dL High 8.0-22.0 [facility] ([place] Comment on above: Performed By: #### G FR, ESR, ADIFF, CBC, CMP, ANEU #### [address] [address] [place] 06-29-2023 Ferritin [Mass/Vol] 16.7 ng/mL Low 26.0-388.0 [facility] ([place] Comment on above: Performed By: #### R F, MG, LPA, FERR, ADIFF, LIPID, ANEU, CBC, FES, GFR, CMP #### [address] [address] FESon 06-29-2023 Iron [Mass/Vol] 32 ug/dL Low 65-175 [facility] ([place] Comment on above: Performed By: #### R F, MG, LPA, FERR, ADIFF, LIPID, ANEU, CBC, FES, GFR, CMP #### [place] [address] Iron Sat 10 % Normal [facility] ([place] Comment on above: Performed By: #### R F, MG, LPA, FERR, ADIFF, LIPID, ANEU, CBC, FES, GFR, CMP #### [place] [id number] TIBC 333 mcg/dL Normal 250-500 [facility] ([place] Comment on above: Performed By: #### R F, MG, LPA, FERR, ADIFF, LIPID, ANEU, CBC, FES, GFR, CMP #### [address] [address] LABORATORYOrdered By: SYSTEM SYSTEM on 06-29-2023 Albumin BCP dye [Mass/Vol] 3.0 G/dL Low 3.2 - 4.8 G/dL ADM SS Albumin/Globulin [Mass ratio] 0.7 {ratio} Low 0.9 - 1.6 ratio AH ADM SS ALP [Catalytic activity/Vol] 144 U/L High 38 - 126 U/L ADM SS ALT No additional P-5'-P [Catalytic activity/Vol] 18 U/L Normal 12 - 55 U/L AH ADM SS AST [Catalytic activity/Vol] 17 U/L Normal 8 - 34 U/L ADM SS Bilirubin [Mass/Vol] 0.60 mg/dL Normal 0.20 - 1.20 mg/dL AH ADM SS Comment on above: Interpretive Data: U se of this assay is not recommended for patients undergoing treatment with eltrombopag due to the potential for falsely elevated results. Ferritin [Mass/Vol] 16.7 ng/mL Low 26.0 - 3 88.0 ng/mL AH ADM SS Globulin 4.1 G/dL High 1.5 - 3.8 G/dL AH ADM SS Iron [Mass/Vol] 32 ug/dL Low 65 - 175 mcg/dL AH ADM SS Iron binding capacity [Mass/Vol] 333 mcg/dL Normal 250 - 500 mcg/dL AH ADM SS Iron saturation [Mass fraction] 10 % Invalid Interpretation Code AH ADM SS Protein [Mass/Vol] 7.1 G/dL Normal 5.7 - 8.2 G/dL AH ADM SS Comment on above: Interpretive Data: * *Note - New Reference Range in effect 20 LABORATORYOrdered By: Alexander Allen on 06-29-2023 Cholesterol [Mass/Vol] 160 mg/dL Normal 50 - 199 mg/dL ADM SS Comment on above: Interpretive Data: C holesterol Reference Interval: Less than 200 Desirable 200-239 Borderline high risk 240 and above High risk Cholesterol in HDL [Mass/Vol] 49 mg/dL Normal 40 - 59 mg/dL ADM SS Cholesterol in LDL [Mass/Vol] 86 mg/dL Normal 0 - 129 mg/dL ADM SS Triglyceride [Mass/Vol] 124 mg/dL Normal 3 - 149 mg/dL ADM SS LABORATORYOrdered By: Deirdre Jensen on 06-29-2023 Lactate [Moles/Vol] 2.3 mmol/L High 0.2 - 2. 0 mmol/L Auto [employer] SS LABORATORYOrdered By: MARV SHANNON CONTRIBUTOR_SYSTEM on 06-29-2023 Lipoprotein a [Mass/Vol] mg/dL Invalid Interpretation Code <30 AH Sendouts SS Comment on above: Result Comment: Perf ormed By: [facility] [employer] [address] [place] [address] Validation Intern: Eliane Duran III#: [id number] LABORATORYOrdered By: Alicia Sorensen on 06-29-2023 Rheumatoid factor IgM IA Qn (S) 192.1 1 High <=5.9 AH Auto [employer] SS Comment on above: Interpretive Data: R F IgM Antibody by Enzyme Immunoassay: Negative < or = 6 Positive > 6 A positive result indicates the presence of RF antibodies and suggests the possibility of rheumatoid arthritis. A negative result indicates no RF IgM antibody or levels below the negative cut-off of the assay. Results of this assay should be used in conjunction with clinical findings and other serological tests. These results were obtained with the [employer] QUANTA Lite RF IgM JAQUAN. RF IgM values obtained with different manufacturers' assay methods may not be used interchangeably. The magnitude of the reported IgM levels cannot be correlated to an endpoint titer. LABORATORYOrdered By: Brianna Sims on 06-29-2023 Barometric Pressure 707 mm[Hg] Invalid Interpretation Code AH Auto Chem SS Base excess Calc (Bld) [Moles/Vol] 3.4 mmol/L Invalid Interpretation Code AH Auto Chem SS CO2 (Bld) [Partial pressure] 57.6 mm[Hg] High 32.0 - 46.0 mm Hg AH Auto Chem SS CO2 [Moles/Vol] 32.0 mmol/L High 22.0 - 30.0 mmol/L AH Auto Chem SS HCO3 (Bld) [Moles/Vol] 30.2 mmol/L High 21.0 - 29.0 mmol/L AH Auto Chem SS Oxygen (Bld) [Partial pressure] 100.5 mm[Hg] Normal 74.0 - 108.0 mm Hg AH Auto Chem SS pH (Bld) 7.338 [pH] Low 7.380 - 7.460 AH Auto Chem SS LABORATORYOrdered By: Dyana Arguello on 06-29-2023 Barometric Pressure 734 mm[Hg] Invalid Interpretation Code AH Auto Chem SS Base excess Calc (Bld) [Moles/Vol] 1.4 mmol/L Invalid Interpretation Code AH Auto Chem SS CO2 (Bld) [Partial pressure] 67.8 mm[Hg] Invalid Interpretation Code 32.0 - 46.0 mm Hg AH Auto Chem SS CO2 [Moles/Vol] 32.4 mmol/L High 22.0 - 30.0 mmol/L AH Auto Chem SS HCO3 (Bld) [Moles/Vol] 30.4 mmol/L High 21.0 - 29.0 mmol/L AH Auto Chem SS Oxygen (Bld) [Partial pressure] 64.7 mm[Hg] Low 74.0 - 108.0 mm Hg AH Auto Chem SS pH (Bld) 7.269 [pH] Low 7.380 - 7.460 Auto Chem SS LABORATORYOrdered By: Albert Staples on 06-29-2023 Blood Glucose Testing Reason Routine (06/29/23 11:46 AM) [facility] Work Phone: Glucose [Mass/Vol] 132 mg/dL High 70 - 110 mg/dL [facility] Work Phone: Blood Glucose Testing Reason Routine (06/29/23 7:14 AM) [facility] Work Phone: Glucose [Mass/Vol] 115 mg/dL High 70 - 110 mg/dL [facility] Work Phone: LACon 06-29-2023 Lactic Acid Lvl 2.3 mmol/L High 0.2-2.0 [facility] ([place] Comment on above: Performed By: #### R F, MG, LPA, FERR, ADIFF, LIPID, ANEU, CBC, FES, GFR, CMP #### [address] [address] LIPIDon 06-29-2023 Cholesterol [Mass/Vol] 160 mg/dL Normal 50-199 [facility] ([place]) Comment on above: Result Comment: Chol esterol Reference Interval: Less than 200 Desirable 200-239 Borderline high risk 240 and above High risk Performed By: #### R F, MG, LPA, FERR, ADIFF, LIPID, ANEU, CBC, FES, GFR, CMP #### [address] [address] Cholesterol in HDL [Mass/Vol] 49 mg/dL Normal 40-59 [facility] ([place]) Comment on above: Performed By: #### R F, MG, LPA, FERR, ADIFF, LIPID, ANEU, CBC, FES, GFR, CMP #### [address] [address] Cholesterol in LDL [Mass/Vol] 86 mg/dL Normal 0-129 [facility] ([place]) Comment on above: Performed By: #### R F, MG, LPA, FERR, ADIFF, LIPID, ANEU, CBC, FES, GFR, CMP #### [address] [address] Triglyceride [Mass/Vol] 124 mg/dL Normal 3-149 [facility] ([place]) Comment on above: Performed By: #### R F, MG, LPA, FERR, ADIFF, LIPID, ANEU, CBC, FES, GFR, CMP #### [address] [address] MGon 06-29-2023 Magnesium [Mass/Vol] 1.8 mg/dL Normal 1.6-2.4 [facility] ([place]) Comment on above: Performed By: #### R F, MG, LPA, FERR, ADIFF, LIPID, ANEU, CBC, FES, GFR, CMP #### [address] [address] XR CHEST 1 VIEWon 06-29-2023 XR CHEST 1 VIEW ORIGINAL EXAMINATION: ONE XRAY VIEW OF THE CHEST06/29/2023 11:56 am COMPARISON: June 28, 2023 HISTORY: Reason for Exam: ro PTX FINDINGS: The enlarged cardiomediastinal silhouette remains stable. A left chest wall cardiac pacing device is in satisfactory position. There are prominent vascular markings and scattered areas of atelectasis. No pneumothorax is seen. IMPRESSION: No pneumothorax. Prominent vascular markings and scattered areas of atelectasis. Interpreted by: Leatha Palma MD Preliminary Report By: Leatha Palma MD Electronically signed By Leatha Palma MD Dictated Date: 06/29/2023 12:06:18 PM Prelim Date: 06/29/2023 12:15:49 PM Sign Date: 06/29/2023 12:15:49 PM Ordering Provider: KAILEE Ignacio [facility] ([place]) .Auto Diffon 06-28-2023 Basophil, Absolute 0.1 10 3/mcL Normal 0.0-0.3 [facility] ([place]) Comment on above: Performed By: #### G FR, ESR, ADIFF, CBC, CMP, ANEU #### [address] [address] Basophils/100 WBC (Bld) 0.4 % Normal 0.0-2.5 [facility] ([place]) Comment on above: Performed By: #### G FR, ESR, ADIFF, CBC, CMP, ANEU #### [address] [address] Eosinophil, Absolute 0.2 10 3/mcL Normal 0.0-0.7 [facility] ([place]) Comment on above: Performed By: #### G FR, ESR, ADIFF, CBC, CMP, ANEU #### [address] [address] Eosinophils/100 WBC (Bld) 1.3 % Normal 0.0-6.0 [facility] ([place]) Comment on above: Performed By: #### G FR, ESR, ADIFF, CBC, CMP, ANEU #### [address] [address] Lymphocyte, Absolute 3.8 10 3/mcL Normal 0.9-4.3 [facility] ([place]) Comment on above: Performed By: #### G FR, ESR, ADIFF, CBC, CMP, ANEU #### [address] [address] Lymphocytes/100 WBC (Bld) 26.8 % Normal 20.0-40.0 [facility] ([place]) Comment on above: Performed By: #### G FR, ESR, ADIFF, CBC, CMP, ANEU #### [address] [address] Monocyte, Absolute 0.9 10 3/mcL Normal 0.1-1.4 [facility] ([place]) Comment on above: Performed By: #### G FR, ESR, ADIFF, CBC, CMP, ANEU #### [address] [address] Monocytes/100 WBC (Bld) 6.2 % Normal 2.0-13.0 [facility] ([place]) Comment on above: Performed By: #### G FR, ESR, ADIFF, CBC, CMP, ANEU #### [address] [address] Neutrophils/100 WBC (Bld) 65.3 % Normal 50.0-75.0 [facility] ([place]) Comment on above: Performed By: #### G FR, ESR, ADIFF, CBC, CMP, ANEU #### [address] [address] .GFRon 06-28-2023 GFR Non- 33 ml/min/1.73sqm Normal [facility] ([place]) Comment on above: Result Comment: GFR Population mean for , Non- Americans Ages 20-29 = 116 mL/min/1.73 sq.m. Ages 30-39 = 107 mL/min/1.73 sq.m. Ages 40-49 = 99 mL/min/1.73 sq.m. Ages 50-59 = 93 mL/min/1.73 sq.m. Ages 60-69 = 85 mL/min/1.73 sq.m. Ages 70+ = 75 mL/min/1.73 sq.m. Chronic Kidney Disease: Less than 60 mL/min/1.73 square meters End Stage Renal Disease: Less than 15 mL/min/1.73 square meters Performed By: #### R F, MG, LPA, FERR, ADIFF, LIPID, ANEU, CBC, FES, GFR, CMP #### [address] [address] GFR 40 ml/min/1.73sqm Normal [facility] ([place]) Comment on above: Result Comment: GFR Population mean for , Non- Americans Ages 20-29 = 116 mL/min/1.73 sq.m. Ages 30-39 = 107 mL/min/1.73 sq.m. Ages 40-49 = 99 mL/min/1.73 sq.m. Ages 50-59 = 93 mL/min/1.73 sq.m. Ages 60-69 = 85 mL/min/1.73 sq.m. Ages 70+ = 75 mL/min/1.73 sq.m. Chronic Kidney Disease: Less than 60 mL/min/1.73 square meters End Stage Renal Disease: Less than 15 mL/min/1.73 square meters Performed By: #### R F, MG, LPA, FERR, ADIFF, LIPID, ANEU, CBC, FES, GFR, CMP #### [address] [address] .NEUABSon 06-28-2023 Neutrophil, Absolute 9.3 10 3/mcL High 2.3-8.1 [facility] ([place]) Comment on above: Performed By: #### G FR, ESR, ADIFF, CBC, CMP, ANEU #### [address] [address] A1Con 06-28-2023 HbA1c (Bld) [Mass fraction] 6.6 % High 4.0-6.0 [facility] ([place] Comment on above: Performed By: #### R F, MG, LPA, FERR, ADIFF, LIPID, ANEU, CBC, FES, GFR, CMP #### [address] [address] APTTon 06-28-2023 aPTT Coag (Bld) [Time] 50.5 s High 25.0-35.0 [facility] ([place]) Comment on above: Result Comment: For Heparin anticoagulation therapy, the recommended therapeutic range is: 54-77 seconds (APTT Correlation with Anti-Xa therapeutic range of 0.3-0.7 units/ml). PLEASE REFERENCE THE PHARMACY PROTOCOL FOR DOSING. Heparin dose (APTT) Heparin IV Normal [facility] ([place]) aPTT Coag (Bld) [Time] 29.5 s Normal 25.0-35.0 [facility] ([place]) Comment on above: Result Comment: For Heparin anticoagulation therapy, the recommended therapeutic range is: 54-77 seconds (APTT Correlation with Anti-Xa therapeutic range of 0.3-0.7 units/ml). PLEASE REFERENCE THE PHARMACY PROTOCOL FOR DOSING. Heparin dose (APTT) Heparin IV Normal [facility] ([place]) CAIONon 06-28-2023 Calcium Ionized 1.15 mmol/L Normal 1.12-1.32 [facility] ([place]) Comment on above: Performed By: #### G FR, ESR, ADIFF, CBC, CMP, ANEU #### [address] [address] CBCon 06-28-2023 Erythrocyte distribution width (RBC) [Ratio] 19.9 % High 11.5-15.5 [facility] ([place]) Comment on above: Performed By: #### G FR, ESR, ADIFF, CBC, CMP, ANEU #### [place] [address] Hematocrit (Bld) [Volume fraction] 33.0 % Low 40.0-52.0 [facility] ([place] Comment on above: Performed By: #### G FR, ESR, ADIFF, CBC, CMP, ANEU #### [place] [address] Hgb 9.4 G/dL Low 13.0-17.5 [facility] ([place] Comment on above: Performed By: #### G FR, ESR, ADIFF, CBC, CMP, ANEU #### [place] [address] MCH (RBC) [Entitic mass] 20.5 pg Low 27.0-33.0 [facility] ([place] Comment on above: Performed By: #### G FR, ESR, ADIFF, CBC, CMP, ANEU #### [place] [address] MCHC 28.4 G/dL Low 32.0-36.0 [facility] ([place] Comment on above: Performed By: #### G FR, ESR, ADIFF, CBC, CMP, ANEU #### [place] [address] MCV (RBC) [Entitic vol] 72.3 fL Low 81.0-100.0 [facility] ([place] Comment on above: Performed By: #### G FR, ESR, ADIFF, CBC, CMP, ANEU #### [place] [address] Platelet 379 10 3/mcL Normal 150-450 [facility] ([place] Comment on above: Performed By: #### G FR, ESR, ADIFF, CBC, CMP, ANEU #### [place] [address] Platelet mean volume (Bld) [Entitic vol] 7.1 fL Normal 6.4-10.5 [facility] ([place] Comment on above: Performed By: #### G FR, ESR, ADIFF, CBC, CMP, ANEU #### [address] [address] RBC 4.57 10 6/mcL Normal 4.50-6.00 [facility] ([place]) Comment on above: Performed By: #### G FR, ESR, ADIFF, CBC, CMP, ANEU #### [address] [address] WBC 14.3 10 3/mcL High 4.5-10.8 [facility] ([place]) Comment on above: Performed By: #### G FR, ESR, ADIFF, CBC, CMP, ANEU #### [address] [address] CMPon 06-28-2023 Albumin Level 2.9 G/dL Low 3.2-4.8 [facility] ([place]) Comment on above: Performed By: #### R F, MG, LPA, FERR, ADIFF, LIPID, ANEU, CBC, FES, GFR, CMP #### [place] [id number] Albumin/Globulin [Mass ratio] 0.8 {ratio} Low 0.9-1.6 [facility] ([place]) Comment on above: Performed By: #### R F, MG, LPA, FERR, ADIFF, LIPID, ANEU, CBC, FES, GFR, CMP #### [address] [address] ALP [Catalytic activity/Vol] 131 U/L High 38-126 [facility] ([place] Comment on above: Performed By: #### R F, MG, LPA, FERR, ADIFF, LIPID, ANEU, CBC, FES, GFR, CMP #### [address] [address] ALT [Catalytic activity/Vol] 18 U/L Normal 12-55 [facility] ([place] Comment on above: Performed By: #### R F, MG, LPA, FERR, ADIFF, LIPID, ANEU, CBC, FES, GFR, CMP #### [address] [address] AST [Catalytic activity/Vol] 16 U/L Normal 8-34 [facility] ([place]) Comment on above: Performed By: #### R F, MG, LPA, FERR, ADIFF, LIPID, ANEU, CBC, FES, GFR, CMP #### [address] [address] Bili Total 0.30 mg/dL Normal 0.20-1.20 [facility] ([place]) Comment on above: Result Comment: Use of this assay is not recommended for patients undergoing treatment with eltrombopag due to the potential for falsely elevated results. Performed By: #### R F, MG, LPA, FERR, ADIFF, LIPID, ANEU, CBC, FES, GFR, CMP #### [address] [address] BUN/Creatinine Ratio 15.0 ratio Normal 10.0-22.0 [facility] ([place]) Comment on above: Performed By: #### R F, MG, LPA, FERR, ADIFF, LIPID, ANEU, CBC, FES, GFR, CMP #### [address] [address] Calcium [Mass/Vol] 8.7 mg/dL Normal 8.7-10.4 [facility] ([place]) Comment on above: Performed By: #### R F, MG, LPA, FERR, ADIFF, LIPID, ANEU, CBC, FES, GFR, CMP #### [address] [address] Chloride [Moles/Vol] 102 mmol/L Normal 98-110 [facility] ([place]) Comment on above: Performed By: #### R F, MG, LPA, FERR, ADIFF, LIPID, ANEU, CBC, FES, GFR, CMP #### [address] [address] CO2 [Moles/Vol] 30 mmol/L Normal 22-32 [facility] ([place]) Comment on above: Performed By: #### R F, MG, LPA, FERR, ADIFF, LIPID, ANEU, CBC, FES, GFR, CMP #### [address] [address] Creatinine [Mass/Vol] 2.13 mg/dL High 0.60-1.40 [facility] ([place]) Comment on above: Performed By: #### R F, MG, LPA, FERR, ADIFF, LIPID, ANEU, CBC, FES, GFR, CMP #### [address] [address] Electrolyte Balance 6.0 mEq/L Normal 4.0-15.0 [facility] ([place]) Comment on above: Performed By: #### R F, MG, LPA, FERR, ADIFF, LIPID, ANEU, CBC, FES, GFR, CMP #### [address] [address] Globulin 3.8 G/dL Normal 1.5-3.8 [facility] ([place]) Comment on above: Performed By: #### R F, MG, LPA, FERR, ADIFF, LIPID, ANEU, CBC, FES, GFR, CMP #### [place] [id number] Glucose [Mass/Vol] 106 mg/dL Normal 70-110 [facility] ([place]) Comment on above: Performed By: #### R F, MG, LPA, FERR, ADIFF, LIPID, ANEU, CBC, FES, GFR, CMP #### [address] [address] Potassium [Moles/Vol] 4.3 mmol/L Normal 3.5-5.0 [facility] ([place]) Comment on above: Performed By: #### R F, MG, LPA, FERR, ADIFF, LIPID, ANEU, CBC, FES, GFR, CMP #### [address] [address] Sodium [Moles/Vol] 138 mmol/L Normal 136-145 [facility] ([place]) Comment on above: Performed By: #### R F, MG, LPA, FERR, ADIFF, LIPID, ANEU, CBC, FES, GFR, CMP #### [address] [address] Total Protein 6.7 G/dL Normal 5.7-8.2 [facility] ([place]) Comment on above: Result Comment: No te - New Reference Range in effect 20 Performed By: #### R F, MG, LPA, FERR, ADIFF, LIPID, ANEU, CBC, FES, GFR, CMP #### [address] [address] Urea nitrogen [Mass/Vol] 32.0 mg/dL High 8.0-22.0 [facility] ([place] Comment on above: Performed By: #### R F, MG, LPA, FERR, ADIFF, LIPID, ANEU, CBC, FES, GFR, CMP #### [place] [address] CRPon 06-28-2023 C-Reactive Protein 1.9 mg/dL High 0.0-1.0 [facility] ([place]) Comment on above: Result Comment: No te - New Reference Range in effect 20 Performed By: #### G FR, ESR, ADIFF, CBC, CMP, ANEU #### [place] [address] CT HEAD OR BRAIN W/O CONTRAS Ton 06-28-2023 CT HEAD OR BRAIN W/O CONTRAST ORIGINAL EXAMINATION: CT OF THE HEAD WITHOUT CONTRAST 06/28/2023 6:43 am TECHNIQUE: CT of the head was performed without the administration of intravenous contrast. Automated exposure control, iterative reconstruction, and/or weight based adjustment of the mA/kV was utilized to reduce the radiation dose to as low as reasonably achievable. COMPARISON: None. HISTORY: ORDERING SYSTEM PROVIDED HISTORY: Reason for Exam: pt fell, syncopal episode fall FINDINGS: BRAIN/VENTRICLES: There is no acute intracranial hemorrhage, mass effect or midline shift. No abnormal extra-axial fluid collection. The groves-white differentiation is maintained without evidence of an acute infarct. There is no evidence of hydrocephalus. ORBITS: The visualized portion of the orbits demonstrate no acute abnormality. SINUSES: The visualized paranasal sinuses and mastoid air cells demonstrate no acute abnormality. SOFT TISSUES/SKULL: No acute abnormality of the visualized skull or soft tissues. IMPRESSION: No acute intracranial abnormality. Interpreted by: Altaf Yang MD Preliminary Report By: Altaf Yang MD Electronically signed By Altaf Yang MD Dictated Date: 06/28/2023 7:04:06 AM Prelim Date: 06/28/2023 7:05:40 AM Sign Date: 06/28/2023 7:05:40 AM Ordering Provider: KAILEE DONOVAN Normal [facility]) DIMERon 06-28-2023 D-Dimer 6450 ng/mL D-DU High 0-230 [facility]) Comment on above: Result Comment: Resu lts reported in D-DU ng/ml. Positive for D-dimer. A positive D-dimer may occur in the following: DVT, PE, DIC, Trauma, Cancer, Sepsis, , Rheumatoid arthritis, Myocardial infarction and Cirrhosis. The presence of Rheumatoid Factor and HAMA (Human mouse Antibody) produces an overestimation of test results. The result of the D-Dimer test should be evaluated in the context of all the clinical and laboratory data available. In those instances where the laboratory result does not agree with the clinical evaluation, additional tests should be performed accordingly. ESRon 06-28-2023 Erythrocyte Sed Rate >130 High 0-20 [facility]) Comment on above: Performed By: #### R F, MG, LPA, FERR, ADIFF, LIPID, ANEU, CBC, FES, GFR, CMP #### [place] [address] LABORATORYOrdered By: Dillon catalan on 06-28-2023 Blood Glucose Testing Reason Routine (06/28/23 10:42 PM) [facility] Work Phone: Glucose [Mass/Vol] 149 mg/dL High 70 - 110 mg/dL [facility] Work Phone: LABORATORYOrdered By: SYSTEM SYSTEM on 06-28-2023 Troponin I.cardiac DL <= 0.01 ng/mL [Mass/Vol] 38.64 ng/L Normal 0.00 - 54.00 ng/L ADM SS Troponin I.cardiac DL <= 0.01 ng/mL [Mass/Vol] 63.03 ng/L High 0.00 - 54.00 ng/L ADM SS Albumin BCP dye [Mass/Vol] 2.9 G/dL Low 3.2 - 4.8 G/dL ADM SS Albumin/Globulin [Mass ratio] 0.8 {ratio} Low 0.9 - 1.6 ratio ADM SS ALP [Catalytic activity/Vol] 131 U/L High 38 - 126 U/L AH ADM SS ALT No additional P-5'-P [Catalytic activity/Vol] 18 U/L Normal 12 - 55 U/L AH ADM SS AST [Catalytic activity/Vol] 16 U/L Normal 8 - 34 U/L ADM SS Bilirubin [Mass/Vol] 0.30 mg/dL Normal 0.20 - 1.20 mg/dL ADM SS Comment on above: Interpretive Data: U se of this assay is not recommended for patients undergoing treatment with eltrombopag due to the potential for falsely elevated results. CRP [Mass/Vol] 1.9 mg/dL High 0.0 - 1.0 mg/dL ADM SS Comment on above: Interpretive Data: * *Note - New Reference Range in effect 20 Globulin 3.8 G/dL Normal 1.5 - 3.8 G/dL ADM SS HbA1c (Bld) [Mass fraction] 6.6 % High 4.0 - 6.0 % Auto Chem SS Phosphate [Mass/Vol] 4.8 mg/dL Normal 2.4 - 5 .1 mg/dL ADM SS Comment on above: Interpretive Data: * *Note - New Reference Range in effect 20 Protein [Mass/Vol] 6.7 G/dL Normal 5.7 - 8.2 G/dL ADM SS Comment on above: Interpretive Data: * *Note - New Reference Range in effect 20 Troponin I.cardiac DL <= 0.01 ng/mL [Mass/Vol] 109.20 ng/L High 0.00 - 54.00 ng/L ADM SS TSH Qn 0.935 mIU/mL Normal 0.550 - 4.780 mIU/mL ADM SS Comment on above: Interpretive Data: * *Note - New Reference Range in effect 20 LABORATORYOrdered By: Glenn Zepeda on 06-28-2023 Lactate [Moles/Vol] 2.5 mmol/L High 0.2 - 2. 0 mmol/L Auto Chem SS Calcium.ionized (Bld) [Mass/Vol] 1.15 mmol/L Normal 1.12 - 1.32 mmol/L AH Auto Chem SS Lactate [Moles/Vol] 2.3 mmol/L High 0.2 - 2. 0 mmol/L AH Auto Chem SS Natriuretic peptide.B prohormone N-Terminal [Mass/Vol] 464 pg/mL Normal 0 - 900 pg/mL AH Auto Chem SS Comment on above: Interpretive Data: N T-proBNP results of less than 300 pg/mL effectively rules out acute congestive heart failure with 99% negative predictive value. LABORATORYOrdered By: Teetee Watkins on 06-28-2023 Appearance (U) Cloudy *ABN* (06/28/23 7:51 AM) Invalid Interpretation Code Clear AH Auto Urine SS Bacteria LM.HPF (Urine sed) [#/Area] Trace /HPF Invalid Interpretation Code Negative AH Auto Urine SS Bilirubin Ql (U) Negative (06/28/23 7:51 AM) Normal Neg-Trace AH Auto Urine SS Color (U) Yellow (06/28/23 7:51 AM) Normal AH Auto Urine SS Crystals.amorphous LM.HPF (Urine sed) [#/Area] Trace /HPF Normal AH Auto Urine SS Glucose Test strip (U) [Mass/Vol] Negative Normal Negative AH Auto Urine SS Hemoglobin Auto test strip (U) [Mass/Vol] Negative (06/28/23 7:51 AM) Normal Neg-Trace AH Auto Urine SS Ketones Ql (U) Trace mg/dL Normal Neg-Trace AH Auto Urine SS UA Fine Granular Casts 0-2 /LPF Invalid Interpretation Code AH Auto Urine SS UA Hyal Cast 3-5 /LPF Invalid Interpretation Code AH Auto Urine SS UA Leuk Est Negative (06/28/23 7:51 AM) Normal Negative AH Auto Urine SS UA Nitrite Negative (06/28/23 7:51 AM) Normal Negative AH Auto Urine SS UA pH 5.0 (06/28/23 7:51 AM) Normal 5.0 - 8.0 AH Auto Urine SS UA Protein 30 mg/dL Normal Negative AH Auto Urine SS UA RBC Rare /HPF Normal 0-2 AH Auto Urine SS UA Spec Grav 1.020 (06/28/23 7:51 AM) Normal 1.006-1.029 AH Auto Urine SS UA Specimen Type Clean Catch (06/28/23 7:51 AM) Normal AH Auto Urine SS UA Squam Epithelial Rare /HPF Normal 0-20 AH Au to Urine SS UA Uric Ac Crystals 3+ /HPF Normal AH Au to Urine SS UA Urobilinogen 1.0 E.U./dL Normal 0.2-1.0 AH Auto Urine SS WBC LM.HPF (Urine sed) [#/Area] Rare /HPF Normal 0-5 AH Auto Urine SS D-Dimer 6450 ng/mL D-DU High 0 - 230 ng/mL D-DU AH Coagulation S Comment on above: Result Comment: Resu lts reported in D-DU ng/ml. Positive for D-dimer. A positive D-dimer may occur in the following: DVT, PE, DIC, Trauma, Cancer, Sepsis, , Rheumatoid arthritis, Myocardial infarction and Cirrhosis. The presence of Rheumatoid Factor and HAMA (Human mouse Antibody) produces an overestimation of test results. Interpretive Data: Komal myles result of the D-Dimer test should be evaluated in the context of all the clinical and laboratory data available. In those instances where the laboratory result does not agree with the clinical evaluation, additional tests should be performed accordingly. LABORATORYOrdered By: Nevaeh Marinelli on 06-28-2023 ESR 15 minute reading (Bld) [Velocity] mm/hr High 0 - 20 mm/hr AH Auto Heme SS PT Coag (PPP) [Time] 12.4 s Normal 9.0 - 1 4.2 seconds [facility] SS Comment on above: Interpretive Data: E ffective 02/15/08, Protime results may be affected by some antibiotics (i.e. Ciprofloxacin, Azithromycin, Bactrim) which may potentiate the action of oral anticoagulants, with further increases in Protime/INR. PT International Ratio 1.1 ratio Invalid Interpretation Code [facility] SS Comment on above: Interpretive Data: Komal myles [employer] (CHEST, 1991, [id number]) recommended therapeutic range for oral anticoagulant therapy is: LOW RISK: Prophylaxis of venous thrombosis INR: 2.0-3.0 Treatment of pulmonary embolism 2.0-3.0 Prevention of systemic embolism 2.0-3.0 HIGH RISK: Mechanical prosthetic valves 2.5-3.5 LABORATORYOrdered By: Pablo Nava on 06-28-2023 Nuclear Ab IF Ql (S) Neg 40 5 (06/28/23 6:50 AM) Normal Neg 40 AH Man Viro/Sero SS Comment on above: Interpretive Data: A NA Screen and Titer methodology is an immunofluorescent technique utilizing Hep2 Substrate. LACon 06-28-2023 Lactic Acid Lvl 2.5 mmol/L High 0.2-2.0 [facility] ([place]) Comment on above: Order Comment: Order ed secondary to Lactic Acid result greater than or equal to 2.0 Performed By: #### R F, MG, LPA, FERR, ADIFF, LIPID, ANEU, CBC, FES, GFR, CMP #### [place] [address] Lactic Acid Lvl 2.3 mmol/L High 0.2-2.0 [facility] ([place]) Comment on above: Performed By: #### G FR, ESR, ADIFF, CBC, CMP, ANEU #### [place] [address] Laboratory - Microbiology an d Antimicrobial susceptibilityOrdered By: [facility]CRO[facility] on 06-28-2023 Bacteria identified Cx Nom (Bld) Culture has been received in lab and is no growth to date. Culture will be held for four weeks. [facility] MGon 06-28-2023 Magnesium [Mass/Vol] 1.8 mg/dL Normal 1.6-2.4 [facility] ([place]) Comment on above: Performed By: #### G FR, ESR, ADIFF, CBC, CMP, ANEU #### [place] [address] No Panel Informationon 06-28 Legionella Urine Ag Presumptive negative for L. pneumophila serogroup 1 antigen in urine, suggesting no recent or current infection. Legionnaire's disease cannot be ruled out since other serogroups and species may also cause disease. [facility] Work Phone: Streptococcus Pneumoniae Urine Antig Presumptive negative for pneumococcal pneumonia, suggesting no current or recent pneumococcal infection. Infection due to Strep pneumoniae cannot be ruled out since the antigen present in the sample may be below the detection limit of the test. [facility] Work Phone: Comment on above: This test has not be en evaluated on patients taking antibiotics for greater than 24 hours or on patients who have recently completed an antibiotic regimen. The accuracy of this test has not been proven in young children. Microscopic examination of blood, culture Culture has been received in lab and is no growth to date. Routine cultures are held for [address] [facility] Work Phone: PBNPon 06-28-2023 Natriuretic peptide B (Bld) [Mass/Vol] 464 pg/mL Normal 0-900 [facility] ([place]) Comment on above: Result Comment: NT-p roBNP results of less than 300 pg/mL effectively rules out acute congestive heart failure with 99% negative predictive value. Performed By: #### R F, MG, LPA, FERR, ADIFF, LIPID, ANEU, CBC, FES, GFR, CMP #### [address] [address] PHOSon 06-28-2023 Phosphate [Mass/Vol] 4.8 mg/dL Normal 2.4-5.1 [facility] ([place]) Comment on above: Result Comment: No te - New Reference Range in effect 20 Performed By: #### G FR, ESR, ADIFF, CBC, CMP, ANEU #### [address] [address] PROon 06-28-2023 INR Coag (PPP) [Relative time] 1.1 {INR} Normal [facility] ([place]) Comment on above: Result Comment: [employer] (CHEST, 1992, [id number]) recommended therapeutic range for oral anticoagulant therapy is: LOW RISK: Prophylaxis of venous thrombosis INR: 2.0-3.0 Treatment of pulmonary embolism 2.0-3.0 Prevention of systemic embolism 2.0-3.0 HIGH RISK: Mechanical prosthetic valves 2.5-3.5 Performed By: #### G FR, ESR, ADIFF, CBC, CMP, ANEU #### [address] [address] PT Coag (PPP) [Time] 12.4 s Normal 9.0-14.2 [facility] ([place]) Comment on above: Result Comment: Effe ctive 02/15/08, Protime results may be affected by some antibiotics (i.e. Ciprofloxacin, Azithromycin, Bactrim) which may potentiate the action of oral anticoagulants, with further increases in Protime/INR. Performed By: #### G FR, ESR, ADIFF, CBC, CMP, ANEU #### [address] [address] TROPHSon 06-28-2023 Troponin I High Sensitivity 38.64 ng/L Normal 0.00-54.00 [facility] ([place] Comment on above: Performed By: #### G FR, ESR, ADIFF, CBC, CMP, ANEU #### [place] [address] Troponin I High Sensitivity 63.03 ng/L High 0.00-54.00 [facility] [place] Comment on above: Performed By: #### G FR, ESR, ADIFF, CBC, CMP, ANEU #### [place] [address] Troponin I High Sensitivity 109.20 ng/L High 0.00-54.00 [facility] [place] Comment on above: Performed By: #### G FR, ESR, ADIFF, CBC, CMP, ANEU #### [place] [address] TSHon 06-28-2023 TSH 0.935 mIU/mL Normal 0.550-4.780 [facility] [place] Comment on above: Result Comment: No te - New Reference Range in effect 20 Performed By: #### R F, MG, LPA, FERR, ADIFF, LIPID, ANEU, CBC, FES, GFR, CMP #### [place] [id number] UAon 06-28-2023 Color (U) Yellow Normal [facility] [place] Comment on above: Performed By: #### G FR, ESR, ADIFF, CBC, CMP, ANEU #### [address] [address] Glucose (U) [Mass/Vol] Negative Normal Negative [facility] ([place] Comment on above: Performed By: #### G FR, ESR, ADIFF, CBC, CMP, ANEU #### [place] [address] Ketones Ql (U) Trace Normal Neg-Trace [facility] [place] Comment on above: Performed By: #### G FR, ESR, ADIFF, CBC, CMP, ANEU #### [address] [address] UA Appear Cloudy Abnormal Clear [facility] [place] Comment on above: Performed By: #### G FR, ESR, ADIFF, CBC, CMP, ANEU #### [address] [address] UA Blood Negative Normal Neg-Trace [facility] [place] Comment on above: Performed By: #### G FR, ESR, ADIFF, CBC, CMP, ANEU #### [address] [address] UA Leuk Est Negative Normal Negative [facility] [place] Comment on above: Performed By: #### G FR, ESR, ADIFF, CBC, CMP, ANEU #### [address] [address] UA Nitrite Negative Normal Negative [facility] [place] Comment on above: Performed By: #### G FR, ESR, ADIFF, CBC, CMP, ANEU #### [address] [address] UA pH 5.0 Normal 5.0 - 8.0 [facility] [place] Comment on above: Performed By: #### G FR, ESR, ADIFF, CBC, CMP, ANEU #### [address] [address] UA Protein 30 mg/dL Normal Negative [facility] [place] Comment on above: Performed By: #### G FR, ESR, ADIFF, CBC, CMP, ANEU #### [address] [address] UA Spec Grav 1.020 Normal 1.006-1.029 [facility] ([place] Comment on above: Performed By: #### G FR, ESR, ADIFF, CBC, CMP, ANEU #### [address] [address] UA Specimen Type Clean Catch Normal [facility] [place] Comment on above: Performed By: #### G FR, ESR, ADIFF, CBC, CMP, ANEU #### [place] [id number] UA Urobilinogen 1.0 E.U./dL Normal 0.2-1.0 [facility] ([place] Comment on above: Performed By: #### G FR, ESR, ADIFF, CBC, CMP, ANEU #### [place] [address] Urobilinogen (U) [Mass/Vol] Negative Normal Neg-Trace [facility] [place] Comment on above: Performed By: #### G FR, ESR, ADIFF, CBC, CMP, ANEU #### [place] [address] UAMICon 06-28-2023 UA Amorphus Trace Normal [facility] [place] Comment on above: Performed By: #### G FR, ESR, ADIFF, CBC, CMP, ANEU #### [place] [address] UA Bacteria Trace Abnormal Negative [facility] [place] Comment on above: Performed By: #### G FR, ESR, ADIFF, CBC, CMP, ANEU #### [place] [address] UA Fine Granular Casts 0-2 Abnormal [facility] ([place] Comment on above: Performed By: #### G FR, ESR, ADIFF, CBC, CMP, ANEU #### [place] [address] UA Hyal Cast 3-5 Abnormal [facility] [place] Comment on above: Performed By: #### G FR, ESR, ADIFF, CBC, CMP, ANEU #### [place] [address] UA RBC Rare Normal 0-2 [facility] [place] Comment on above: Performed By: #### G FR, ESR, ADIFF, CBC, CMP, ANEU #### [place] [address] UA Squam Epithelial Rare Normal 0-20 [facility] ([place] Comment on above: Performed By: #### G FR, ESR, ADIFF, CBC, CMP, ANEU #### [place] [address] UA Uric Ac Crystals 3+ /hpf Normal [facility] ([place] Comment on above: Performed By: #### G FR, ESR, ADIFF, CBC, CMP, ANEU #### [facility] [address] [place] [address] UA WBC Rare Normal 0-5 [facility] [place] Comment on above: Performed By: #### G FR, ESR, ADIFF, CBC, CMP, ANEU #### [facility] [address] [place] [address] XR CHEST 1 VIEWon 06-28-2023 XR CHEST 1 VIEW ORIGINAL EXAMINATION: ONE XRAY VIEW OF THE CHEST 06/28/2023 6:25 am COMPARISON: None. HISTORY: ORDERING SYSTEM PROVIDED HISTORY: Reason for Exam: Chest Pain FINDINGS: The heart is mildly enlarged. There are streaky infiltrates in the mid and lower lung zones bilaterally. No large pleural effusion is present. There is no pneumothorax. IMPRESSION: Streaky bilateral lung infiltrates may be pulmonary edema or pneumonia. Mild cardiomegaly. Interpreted by: Altaf Yang MD Preliminary Report By: Altaf Yang MD Electronically signed By Altaf Yang MD Dictated Date: 06/28/2023 6:38:17 AM Prelim Date: 06/28/2023 6:39:13 AM Sign Date: 06/28/2023 6:39:13 AM Ordering Provider: KAILEE Ignacio [facility] [place] CBC panel Auto (Bld)on 04-20 Erythrocyte distribution width (RBC) [Ratio] 20.5 % High 11.5-15.0 [facility] Comment on above: Order Comment: Sreekanth ludwig Type: BLOOD SPECIMEN [facility] Address: [address] [place] [address] Performed By: #### 5 8410-2 #### [facility] CLIA [id number] [address] [place] [address] [place] Hematocrit (Bld) [Volume fraction] 32.5 % Low 39.0-51.0 [facility] Comment on above: Order Comment: Sreekanth ludwig Type: BLOOD SPECIMEN [facility]ing Facility[facility] Address: [address] [place] [address], [place] [address] Performed By: #### 5 8410-2 #### [facility] CLIA [id number] [address] [place] [address] [facility] Hemoglobin (Bld) [Mass/Vol] 8.5 g/dL Low 13.0-17.0 [facility] Comment on above: Order Comment: Speci men Type: BLOOD SPECIMEN [facility]ing Facility[facility] Address: [address] [place] [address], [place] [address] Performed By: #### 5 8410-2 #### [facility] CLIA [id number] [address] [place] [address] [facility] [place] MCH (RBC) [Entitic mass] 19.6 pg Low 26.0-34.0 [facility] Comment on above: Order Comment: Speci men Type: BLOOD SPECIMEN [facility] Facility[facility] Address: [address] [place] [address], [place] [address] Performed By: #### 5 8410-2 #### [facility] CLIA [id number] [address] [place] [address] [place] MCHC (RBC) [Mass/Vol] 26.2 g/dL Low 30.5-36.0 [facility] Comment on above: Order Comment: Speci men Type: BLOOD SPECIMEN [facility]ing Facility[facility] Address: [address] [place] [address], [place] [address] Performed By: #### 5 8410-2 #### [facility] CLIA [id number] [address] [place] [address] [place] MCV (RBC) [Entitic vol] 74.9 fL Low 80.0-100.0 [facility] Comment on above: Order Comment: Speci men Type: BLOOD SPECIMEN [facility] Address: [address] [place] [address], [place] [address] Performed By: #### 5 8410-2 #### [facility] CLIA [id number] [address] [place] [address] [facility] [place] Platelet mean volume (Bld) [Entitic vol] 8.9 fL Low 9.0-12.7 [facility] Comment on above: Order Comment: Sreekanth oziel Type: BLOOD SPECIMEN [facility] Address: [address] [place] [address], [place] [address] Performed By: #### 5 8410-2 #### [facility] CLIA [id number] [address] [place] [address] [place] Platelets (Bld) [#/Vol] 349 10*3/uL Normal 150-400 [facility] Comment on above: Order Comment: Sreekanth oziel Type: BLOOD SPECIMEN [facility] Address: [address] [place] [address], [place] [address] Performed By: #### 5 8410-2 #### [facility] CLIA [id number] [address] [place] [address] [place] RBC (Bld) [#/Vol] 4.34 10*6/uL Normal 4.20-6.00 [facility] Comment on above: Order Comment: Maritzawillam ludwig Type: BLOOD SPECIMEN [facility] Address: [address] [place] [address], [place] [address] Performed By: #### 5 8410-2 #### [facility] CLIA [id number] [address] [place] [address] [place] WBC (Bld) [#/Vol] 9.84 10*3/uL Normal 3.70-11.00 [facility] Comment on above: Order Comment: Sreekanth ludwig Type: BLOOD SPECIMEN [facility] Address: [address] [place] [address], [place] [address] Performed By: #### 5 8410-2 #### [facility] CLIA [id number] [address] [place] [address] [facility] Ines 04-20-2023 HAIR Telephone (HCSIND) -------- OSMARCAYLA Bermudez ([id number]) 1970 M Date Time Provider Department 04/20/23 LACEY HERNANDEZ YOLY During your visit today, we recorded the following information about you: Allergies As of Date: 04/20/2023 Noted Allergy Reaction DICLOFENAC 07/12/2018 4 - Hives ETANERCEPT 04/14/2017 7 - Swelling FOLIC ACID 10/06/2016 8 - GI Upset Comments: dizzy/light headed LEVOFLOXACIN 08/22/2022 14 - Other: See Comments Comments: abdominal pain and cramping, stiffness in neck METHOTREXATE 10/06/2016 8 - GI Upset Comments: dizzy, light headed, diarrhea/vomiting PENICILLINS 04/14/2017 4 - Hives PLAQUENIL (HYDROXYCHLOROQUINE SUL*10/06/2016 8 - GI Upset Comments: dizzy/light headed RIVAROXABAN 04/14/2017 8 - GI Upset SULFA (SULFONAMIDE ANTIBIOTICS) 08/16/2022 4 - Hives WARFARIN 04/14/2017 8 - GI Upset Date Reviewed: 04/10/2023 Reviewed by: Nevaeh Moser COTA/Natan - Fully Assessed Reason for Visit: Home Care [4073] Cmt: Error Prescriptions as of 04/22/2023 - ferrous gluconate 324 mg (37.5 mg iron) tablet Take 324 mg by mouth twice daily. - cephALEXin (KEFLEX) 500 mg capsule Take 500 mg by mouth three times daily. - Zinc Acetate, Oral, 50 mg (zinc) cap Take 1 capsule by mouth once daily. - sulfamethoxazole-trimeth oprim (BACTRIM) 400-80 mg per tablet Take 1 tablet by mouth once daily. - metoprolol tartrate, short acting, (LOPRESSOR) 25 mg tablet Take 50 mg by mouth twice daily. - HYDROcodone-acetaminophe n (NORCO) 5-325 mg per tablet Take 1 tablet by mouth every 6 hours as needed for pain. - benzonatate (TESSALON PERLES) 100 mg capsule Take 100 mg by mouth twice daily as needed for cough. - furosemide (LASIX) 20 mg tablet Take 40 mg by mouth twice daily. - OXYGEN, HOME THERAPY, 4 L/min by Nasal Cannula route continuous. - fluticasone prp-sod.chl,bicarb 50 mcg- 0.9 % ksps Use 2 Sprays in the nose once daily as needed (allergy s/s). - nystatin (NYSTOP) powder Apply 1 application to affected area twice daily. - sgzzeaphz-fivxqp-gcpkwra ne HCl (PRIZOTRAL) 2.5-2.5-3.88 % cream Apply 1 Each to affected area once daily. apply topically with wound care - albuterol HFA (VENTOLIN HFA) 90 mcg/actuation inhaler Inhale 2 Puffs as instructed every 6 hours as needed for wheezing/shortness of breath. - ascorbic acid, vitamin C, (VITAMIN C) 500 mg tablet Take 500 mg by mouth once daily. - aspirin, enteric coated (ASPIRIN, ENTERIC COATED) 81 mg EC tablet Take 81 mg by mouth once daily. - losartan (COZAAR) 25 mg tablet Take 25 mg by mouth twice daily. - glipiZIDE (GLUCOTROL XL) 2.5 mg 24 hr tablet Take 2.5 mg by mouth once daily. - bumetanide (BUMEX) 1 mg tablet Take 1 mg by mouth once daily as needed (swelling). - doxycycline hyclate (VIBRAMYCIN) 100 mg capsule Take 100 mg by mouth twice daily. - metoprolol tartrate, short acting, (LOPRESSOR) 25 mg tablet Take 1 tablet by mouth every 12 hours. - oxycodone HCl (OXYCODONE ORAL) Take 5 mg by mouth three times daily as needed (pain). - ticagrelor (BRILINTA) 90 mg tablet Take 90 mg by mouth twice daily. - polyethylene glycol 3350 (MIRALAX) 17 gram/dose powder Take 17 g by mouth once daily. - predniSONE (DELTASONE) 5 mg tablet 17.5 mg daily for 2 week, continue taper by 2.5 mg every 2 weeks. - dicyclomine (BENTYL) 20 mg tablet take 1 tablet by mouth every 6 hours - omeprazole (PRILOSEC) 20 mg capsule take 2 capsules by mouth once daily - Levothyroxine 150 mcg cap Take 300 mcg by mouth once daily. On Thursday only take 150MCG - cyanocobalamin, vitamin B-12, 1,000 mcg/mL kit by INJECTION(UNSPECIFIED PARENTERAL ROUTES) route. - cyanocobalamin (VITAMIN B-12) 500 mcg tablet Take by mouth once daily. - hydrocortisone (ANUSOL-HC) 2.5 % rectal cream 1 application by RECTAL route four times daily as needed. - gabapentin (NEURONTIN) 100 mg capsule Take 100 mg by mouth daily at bedtime. - losartan-hydrochlorothia zide (HYZAAR) 100-25 mg per tablet Take 1 tablet by mouth once daily. - dabigatran etexilate (PRADAXA) 150 mg cap Take 150 mg by mouth twice daily. - diazepam (VALIUM) 10 mg tablet Take 10 mg by mouth four times daily as needed for anxiety. - atorvastatin (LIPITOR) 40 mg tablet Take 40 mg by mouth once daily. - tamsulosin ER (FLOMAX) 0.4 mg cp24 Take 0.4 mg by mouth once daily. - furosemide (LASIX) 20 mg tablet (Discontinued) Take 20 mg by mouth twice daily. Take 2 tablets by mouth in the morning and 1 tablet by mouth at 1pm Problem List As Of Date 04/20/2023 Noted Resolved Stomach ulcer [K25.9] Hypercholesteremia [E78.00] Hip pain [M25.559] Overactive bladder [N32.81] Panic attacks [F41.0] Constipation [K59.00] Depression [F32.A] Hip disease [M25.9] Anxiety [F41.9] Hypoglycemic syndrome [E16.2] Obesity [E66.9] 07/05/2018 Abnormal laboratory test [R89.9] 07/05/2018 Perianal abscess [K61 (more content not included)... Normal [facility] Comprehensive metabolic 2000 panelon 04-20-2023 Albumin [Mass/Vol] 3.0 g/dL Low 3.9-4.9 [facility] Comment on above: Order Comment: Speci men Type: BLOOD SPECIMEN [facility] Address: [address] [place] [address] Performed By: #### 2 4323-8 #### [facility] CLIA [id number] [address] [place] [address] [place] ALP [Catalytic activity/Vol] 124 U/L High 38-113 [facility] Comment on above: Order Comment: Speci men Type: BLOOD SPECIMEN [facility] Facility[facility] Address: [address] [place] [address], [place] [address] Performed By: #### 2 4323-8 #### [facility] CLIA [id number] [address] [place] [address] [place] ALT With P-5'-P [Catalytic activity/Vol] 21 U/L Normal 10-54 [facility] Comment on above: Order Comment: Speci men Type: BLOOD SPECIMEN [facility] Address: [address] [place] [address], [place] [address] Performed By: #### 2 4323-8 #### [facility] CLIA [id number] [address] [place] [address] [place] Anion gap [Moles/Vol] 13 mmol/L Normal 9-18 [facility] Comment on above: Order Comment: Speci men Type: BLOOD SPECIMEN [facility] Facility[facility] Address: [address] [place] [address], [place] [address] Performed By: #### 2 4323-8 #### [facility] CLIA [id number] [address] [place] [address] [place] AST With P-5'-P [Catalytic activity/Vol] 25 U/L Normal 14-40 [facility] Comment on above: Order Comment: Speci men Type: BLOOD SPECIMEN [facility] Address: [address] [place] [address], [place] [address] Performed By: #### 2 4323-8 #### [facility] CLIA [id number] [address] [place] [address] [place] Bilirubin [Mass/Vol] 1.0 mg/dL Normal 0.2-1.3 [facility] Comment on above: Order Comment: Speci men Type: BLOOD SPECIMEN [facility] Facility[facility] Address: [address] [place] [address], [place] [address] Performed By: #### 2 4323-8 #### [facility] CLIA [id number] [address] [place] [address] [place] Calcium [Mass/Vol] 8.7 mg/dL Normal 8.5-10.2 [facility] Comment on above: Order Comment: Speci men Type: BLOOD SPECIMEN [facility] Address: [address] [place] [address], [place] [address] Performed By: #### 2 4323-8 #### [facility] CLIA [id number] [address] [place] [address] [place] Chloride [Moles/Vol] 95 mmol/L Low 97-105 [facility] Comment on above: Order Comment: Speci men Type: BLOOD SPECIMEN [facility] Facility[facility] Address: [address] [place] [address], [place] [address] Performed By: #### 2 4323-8 #### [facility] CLIA [id number] [address] [place] [address] [place] CO2 [Moles/Vol] 28 mmol/L Normal 22-30 [facility] Comment on above: Order Comment: Speci men Type: BLOOD SPECIMEN [facility] Address: [address] [place] [address], [place] [address] Performed By: #### 2 4323-8 #### [facility] CLIA [id number] [address] [place] [address] [place] Creatinine [Mass/Vol] 1.67 mg/dL High 0.73-1.22 [facility] Comment on above: Order Comment: Speci men Type: BLOOD SPECIMEN [facility] Address: [address] [place] [address], [place] [address] Performed By: #### 2 4323-8 #### [facility] CLIA [id number] [address] [place] [address] [place] Creatinine and Glomerular filtration rate.predicted panel (S/P/Bld) 49 mL/min/1.73m??? Low >=60 [facility] Comment on above: Order Comment: Speci men Type: BLOOD SPECIMEN [facility] Address: [address] [place] [address] Result Comment: Ashley mated Glomerular Filtration Rate (eGFR) is calculated using the 2020 CKD-EPI creatinine equation. This equation utilizes serum creatinine, sex, and age as parameters. The creatinine assay has traceable calibration to isotope dilution-mass spectrometry. Refer to KDIGO guidelines for clinical interpretation. In patients with unstable renal function, e.g. those with acute kidney injury, the eGFR may not accurately reflect actual GFR. Performed By: #### 2 4323-8 #### [facility] CLIA [id number] [address] [place] [address] [place] Glucose [Mass/Vol] 264 mg/dL High 74-99 [facility] Comment on above: Order Comment: Sreekanth ludwig Type: BLOOD SPECIMEN Ordering Facility: [facility] Address: [address] [place] [address] Result Comment: The [place] Diabetes [employer] (ADA) provides guidance for cutoff values for fasting glucose and random glucose. The ADA defines fasting as no caloric intake for at least 8 hours. Fasting plasma glucose results between 100 to 125 mg/dL indicate increased risk for diabetes (prediabetes). Fasting plasma glucose results greater than or equal to 126 mg/dL meet the criteria for diagnosis of diabetes. In the absence of unequivocal hyperglycemia, results should be confirmed by repeat testing. In a patient with classic symptoms of hyperglycemia or hyperglycemic crisis, random plasma glucose results greater than or equal to 200 mg/dL meet the criteria for diagnosis of diabetes. Reference: Standards of Medical Care in Diabetes 2016, [place] [employer]. Diabetes Care. 2016.39(Suppl 1). Performed By: #### 2 4323-8 #### [facility] CLIA [id number] [address] [place] [address] [place] Potassium [Moles/Vol] 4.4 mmol/L Normal 3.7-5.1 [facility] Comment on above: Order Comment: Sreekanth ludwig Type: BLOOD SPECIMEN Ordering Facility: [facility] Address: [address] [place] [address] Performed By: #### 2 4323-8 #### [facility] CLIA [id number] [address] [place] [address] [place] Protein [Mass/Vol] 6.5 g/dL Normal 6.3-8.0 [facility] Comment on above: Order Comment: Sreekanth ludwig Type: BLOOD SPECIMEN [facility] Address: [address] [place] [address], [place] [address] Performed By: #### 2 4323-8 #### [facility] CLIA [id number] [address] [place] [address] [place] Sodium [Moles/Vol] 136 mmol/L Normal 136-144 [facility] Comment on above: Order Comment: Sreekanth ludwig Type: BLOOD SPECIMEN [facility] Address: [address] [place] [address], [place] [address] Performed By: #### 2 4323-8 #### [facility] CLIA [id number] [address] [place] [address] [facility] [place] Urea nitrogen [Mass/Vol] 11 mg/dL Normal 9-24 [facility] Comment on above: Order Comment: Sreekanth ludwig Type: BLOOD SPECIMEN [facility] Address: [address] [place] [address], [place] [address] Performed By: #### 2 4323-8 #### [facility] CLIA [id number] [address] [place] [address] [facility] [place] [facility] CAYLA GRANADOS ([id number]) 1970 M Date Time Provider Department 04/03/23 MARIANNE SIMENTAL HCSIND During your visit today, we recorded the following information about you: Marianne Simental 04/03/2023 11:35 AM Signed There has been a delay in service for Home Care PT Evaluation for this patient due to schedule conflict. Patient was notified on 04/03/23. Verbally declining PT services at this time. Dillon Norris, DO office notified. Thank you for this referral, please contact us with any questions. Marianne Simental 04/03/23 11:34 am Allergies As of Date: 04/03/2023 Noted Allergy Reaction DICLOFENAC 07/12/2018 4 - Hives ETANERCEPT 04/14/2017 7 - Swelling FOLIC ACID 10/06/2016 8 - GI Upset Comments: dizzy/light headed LEVOFLOXACIN 08/22/2022 14 - Other: See Comments Comments: abdominal pain and cramping, stiffness in neck METHOTREXATE 10/06/2016 8 - GI Upset Comments: dizzy, light headed, diarrhea/vomiting PENICILLINS 04/14/2017 4 - Hives PLAQUENIL (HYDROXYCHLOROQUINE SUL*10/06/2016 8 - GI Upset Comments: dizzy/light headed RIVAROXABAN 04/14/2017 8 - GI Upset SULFA (SULFONAMIDE ANTIBIOTICS) 08/16/2022 4 - Hives WARFARIN 04/14/2017 8 - GI Upset Date Reviewed: 02/26/2023 Reviewed by: Mely Roblero, STANISLAW - Fully Assessed Reason for Visit: Home Care [4073] Cmt: Delay of PT eval call Prescriptions as of 04/03/2023 - ferrous gluconate 324 mg (37.5 mg iron) tablet Take 324 mg by mouth twice daily. - cephALEXin (KEFLEX) 500 mg capsule Take 500 mg by mouth three times daily. - Zinc Acetate, Oral, 50 mg (zinc) cap Take 1 capsule by mouth once daily. - sulfamethoxazole-trimeth oprim (BACTRIM) 400-80 mg per tablet Take 1 tablet by mouth once daily. - metoprolol tartrate, short acting, (LOPRESSOR) 25 mg tablet Take 50 mg by mouth twice daily. - HYDROcodone-acetaminophe n (NORCO) 5-325 mg per tablet Take 1 tablet by mouth every 6 hours as needed for pain. - benzonatate (TESSALON PERLES) 100 mg capsule Take 100 mg by mouth twice daily as needed for cough. - furosemide (LASIX) 20 mg tablet Take 40 mg by mouth twice daily. - OXYGEN, HOME THERAPY, 4 L/min by Nasal Cannula route continuous. - fluticasone prp-sod.chl,bicarb 50 mcg- 0.9 % ksps Use 2 Sprays in the nose once daily as needed (allergy s/s). - nystatin (NYSTOP) powder Apply 1 application to affected area twice daily. - zfekpimdv-naroae-gcyfcyv ne HCl (PRIZOTRAL) 2.5-2.5-3.88 % cream Apply 1 Each to affected area once daily. apply topically with wound care - albuterol HFA (VENTOLIN HFA) 90 mcg/actuation inhaler Inhale 2 Puffs as instructed every 6 hours as needed for wheezing/shortness of breath. - ascorbic acid, vitamin C, (VITAMIN C) 500 mg tablet Take 500 mg by mouth once daily. - aspirin, enteric coated (ASPIRIN, ENTERIC COATED) 81 mg EC tablet Take 81 mg by mouth once daily. - losartan (COZAAR) 25 mg tablet Take 25 mg by mouth twice daily. - glipiZIDE (GLUCOTROL XL) 2.5 mg 24 hr tablet Take 2.5 mg by mouth once daily. - bumetanide (BUMEX) 1 mg tablet Take 1 mg by mouth once daily as needed (swelling). - doxycycline hyclate (VIBRAMYCIN) 100 mg capsule Take 100 mg by mouth twice daily. - metoprolol tartrate, short acting, (LOPRESSOR) 25 mg tablet Take 1 tablet by mouth every 12 hours. - oxycodone HCl (OXYCODONE ORAL) Take 5 mg by mouth three times daily as needed (pain). - ticagrelor (BRILINTA) 90 mg tablet Take 90 mg by mouth twice daily. - polyethylene glycol 3350 (MIRALAX) 17 gram/dose powder Take 17 g by mouth once daily. - predniSONE (DELTASONE) 5 mg tablet 17.5 mg daily for 2 week, continue taper by 2.5 mg every 2 weeks. - dicyclomine (BENTYL) 20 mg tablet take 1 tablet by mouth every 6 hours - omeprazole (PRILOSEC) 20 mg capsule take 2 capsules by mouth once daily - Levothyroxine 150 mcg cap Take 300 mcg by mouth once daily. On Thursday only take 150MCG - cyanocobalamin, vitamin B-12, 1,000 mcg/mL kit by INJECTION(UNSPECIFIED PARENTERAL ROUTES) route. - cyanocobalamin (VITAMIN B-12) 500 mcg tablet Take by mouth once daily. - hydrocortisone (ANUSOL-HC) 2.5 % rectal cream 1 application by RECTAL route four times daily as needed. - gabapentin (NEURONTIN) 100 mg capsule Take 100 mg by mouth daily at bedtime. - losartan-hydrochlorothia zide (HYZAAR) 100-25 mg per tablet Take 1 tablet by mouth once daily. - dabigatran etexilate (PRADAXA) 150 mg cap Take 150 mg by mouth twice daily. - diazepam (VALIUM) 10 mg tablet Take 10 mg by mouth four times daily as needed for anxiety. - atorvastatin (LIPITOR) 40 mg tablet Take 40 mg by mouth once daily. - tamsulosin ER (FLOMAX) 0.4 mg cp24 Take 0.4 mg by mouth once daily. - furosemide (LASIX) 20 mg tablet (Discontinued) Take 20 mg by mouth twice daily. Take 2 tablets by mouth in the morning and 1 tablet by mouth at 1pm Problem List As Of (more content not included)... Normal [facility] 03-27-2023 [facility] Telephone (HCSIND) -------- CAYLA GRANADOS ([id number]) 1970 M Date Time Provider Department 03/27/23 [facility] During your visit today, we recorded the following information about you: Allergies As of Date: 03/27/2023 Noted Allergy Reaction DICLOFENAC 07/12/2018 4 - Hives ETANERCEPT 04/14/2017 7 - Swelling FOLIC ACID 10/06/2016 8 - GI Upset Comments: dizzy/light headed LEVOFLOXACIN 08/22/2022 14 - Other: See Comments Comments: abdominal pain and cramping, stiffness in neck METHOTREXATE 10/06/2016 8 - GI Upset Comments: dizzy, light headed, diarrhea/vomiting PENICILLINS 04/14/2017 4 - Hives PLAQUENIL (HYDROXYCHLOROQUINE SUL*10/06/2016 8 - GI Upset Comments: dizzy/light headed RIVAROXABAN 04/14/2017 8 - GI Upset SULFA (SULFONAMIDE ANTIBIOTICS) 08/16/2022 4 - Hives WARFARIN 04/14/2017 8 - GI Upset Date Reviewed: 02/26/2023 Reviewed by: Mely Roblero RN - Fully Assessed Reason for Visit: Home Care [4073] Cmt: Confirmation Call Prescriptions as of 03/27/2023 - Zinc Acetate, Oral, 50 mg (zinc) cap Take 1 capsule by mouth once daily. - sulfamethoxazole-trimeth oprim (BACTRIM) 400-80 mg per tablet Take 1 tablet by mouth once daily. - metoprolol tartrate, short acting, (LOPRESSOR) 25 mg tablet Take 50 mg by mouth twice daily. - HYDROcodone-acetaminophe n (NORCO) 5-325 mg per tablet Take 1 tablet by mouth every 6 hours as needed for pain. - benzonatate (TESSALON PERLES) 100 mg capsule Take 100 mg by mouth twice daily as needed for cough. - furosemide (LASIX) 20 mg tablet Take 40 mg by mouth once daily. - furosemide (LASIX) 20 mg tablet Take 20 mg by mouth once daily. take at 1p - OXYGEN, HOME THERAPY, 4 L/min by Nasal Cannula route continuous. - fluticasone prp-sod.chl,bicarb 50 mcg- 0.9 % ksps Use 2 Sprays in the nose once daily as needed (allergy s/s). - nystatin (NYSTOP) powder Apply 1 application to affected area twice daily. - zakejrvzj-hswibq-savgmrs ne HCl (PRIZOTRAL) 2.5-2.5-3.88 % cream Apply 1 Each to affected area once daily. apply topically with wound care - albuterol HFA (VENTOLIN HFA) 90 mcg/actuation inhaler Inhale 2 Puffs as instructed every 6 hours as needed for wheezing/shortness of breath. - ascorbic acid, vitamin C, (VITAMIN C) 500 mg tablet Take 500 mg by mouth once daily. - aspirin, enteric coated (ASPIRIN, ENTERIC COATED) 81 mg EC tablet Take 81 mg by mouth once daily. - losartan (COZAAR) 25 mg tablet Take 25 mg by mouth twice daily. - glipiZIDE (GLUCOTROL XL) 2.5 mg 24 hr tablet Take 2.5 mg by mouth once daily. - bumetanide (BUMEX) 1 mg tablet Take 1 mg by mouth once daily as needed (swelling). - doxycycline hyclate (VIBRAMYCIN) 100 mg capsule Take 100 mg by mouth twice daily. - metoprolol tartrate, short acting, (LOPRESSOR) 25 mg tablet Take 1 tablet by mouth every 12 hours. - oxycodone HCl (OXYCODONE ORAL) Take 5 mg by mouth three times daily as needed (pain). - ticagrelor (BRILINTA) 90 mg tablet Take 90 mg by mouth twice daily. - polyethylene glycol 3350 (MIRALAX) 17 gram/dose powder Take 17 g by mouth once daily. - predniSONE (DELTASONE) 5 mg tablet 17.5 mg daily for 2 week, continue taper by 2.5 mg every 2 weeks. - dicyclomine (BENTYL) 20 mg tablet take 1 tablet by mouth every 6 hours - omeprazole (PRILOSEC) 20 mg capsule take 2 capsules by mouth once daily - Levothyroxine 150 mcg cap Take 300 mcg by mouth once daily. On Thursday only take 150MCG - cyanocobalamin, vitamin B-12, 1,000 mcg/mL kit by INJECTION(UNSPECIFIED PARENTERAL ROUTES) route. - cyanocobalamin (VITAMIN B-12) 500 mcg tablet Take by mouth once daily. - hydrocortisone (ANUSOL-HC) 2.5 % rectal cream 1 application by RECTAL route four times daily as needed. - gabapentin (NEURONTIN) 100 mg capsule Take 100 mg by mouth daily at bedtime. - losartan-hydrochlorothia zide (HYZAAR) 100-25 mg per tablet Take 1 tablet by mouth once daily. - dabigatran etexilate (PRADAXA) 150 mg cap Take 150 mg by mouth twice daily. - diazepam (VALIUM) 10 mg tablet Take 10 mg by mouth four times daily as needed for anxiety. - atorvastatin (LIPITOR) 40 mg tablet Take 40 mg by mouth once daily. - tamsulosin ER (FLOMAX) 0.4 mg cp24 Take 0.4 mg by mouth once daily. - furosemide (LASIX) 20 mg tablet (Discontinued) Take 20 mg by mouth twice daily. Take 2 tablets by mouth in the morning and 1 tablet by mouth at 1pm Problem List As Of Date 03/27/2023 Noted Resolved Stomach ulcer [K25.9] Hypercholesteremia [E78.00] Hip pain [M25.559] Overactive bladder [N32.81] Panic attacks [F41.0] Constipation [K59.00] Depression [F32.A] Hip disease [M25.9] Anxiety [F41.9] Hypoglycemic syndrome [E16.2] Obesity [E66.9] 07/05/2018 Abnormal laboratory test [R89.9] 07/05/2018 Perianal abscess [K61.0] 08/16/2022 Nicotine use disorder, F17.2 [F17.200] 08/18/2022 Obesity, Class III (more content not included)... Normal [facility] Comprehensive metabolic 2000 panelon 03-10-2023 Albumin [Mass/Vol] 3.3 g/dL Low 3.9-4.9 [facility] Comment on above: Order Comment: Speci men Type: BLOOD SPECIMENOrdering Facility: [facility] Address: [address] [place] [address], [place] [address] Performed By: #### 2 4323-8 ####[facility] LABCLIA [id number] [place] [address] [place] ALP [Catalytic activity/Vol] 117 U/L High 38-113 [facility] Comment on above: Order Comment: Speci men Type: BLOOD SPECIMENOrdering Facility: [facility] Address: [address] [place] [address], [place] [address] Performed By: #### 2 4323-8 ####[facility] LABCLIA [id number] [place] [id number] [place] ALT [Catalytic activity/Vol] 13 U/L Normal 10-54 [facility] Comment on above: Order Comment: Speci men Type: BLOOD SPECIMENOrdering Facility: [facility] Address: [address] [place] [address], [place] [address] Performed By: #### 2 4323-8 ####[facility] LABCLIA [id number] [place] [id number] [place] Anion gap [Moles/Vol] 10 mmol/L Normal 9-18 [facility] Comment on above: Order Comment: Speci men Type: BLOOD SPECIMENOrdering Facility: [facility] Address: [address] [place] [address], [place] [address] Performed By: #### 2 4323-8 ####[facility] LABCLIA [id number] [address] [address] [place] AST [Catalytic activity/Vol] 18 U/L Normal 14-40 [facility] Comment on above: Order Comment: Speci men Type: BLOOD SPECIMENOrdering Facility: [facility] Address: [address] [place] [address], [place] [id number] Performed By: #### 2 4323-8 ####[facility] LABCLIA [id number] [place] [id number] [place] Bilirubin [Mass/Vol] 0.2 mg/dL Normal 0.2-1.3 [facility] Comment on above: Order Comment: Speci men Type: BLOOD SPECIMENOrdering Facility: [facility] Address: [address] [place] [address], [place] [address] Performed By: #### 2 4323-8 ####[facility] LABCLIA [id number] [address] [address] [place] Calcium [Mass/Vol] 8.9 mg/dL Normal 8.5-10.2 [facility] Comment on above: Order Comment: Speci men Type: BLOOD SPECIMENOrdering Facility: [facility] Address: [address] [place] [address], [place] [address] Performed By: #### 2 4323-8 ####[facility] LABCLIA [id number] [address] [address] [place] Chloride [Moles/Vol] 99 mmol/L Normal 97-105 [facility] Comment on above: Order Comment: Speci men Type: BLOOD SPECIMENOrdering Facility: [facility] Address: [address] [place] [address], [place] [id number] Performed By: #### 2 4323-8 ####[facility] LABCLIA [id number] [facility] [address] [address] [place] CO2 [Moles/Vol] 30 mmol/L Normal 22-30 [facility] Comment on above: Order Comment: Speci men Type: BLOOD SPECIMENOrdering Facility: [facility] Address: [address] [place] [address], [place] [address] Performed By: #### 2 4323-8 ####[facility] LABCLIA [id number] [address] [address] [place] Creatinine [Mass/Vol] 0.83 mg/dL Normal 0.73-1.22 [facility] Comment on above: Order Comment: Speci men Type: BLOOD SPECIMENOrdering Facility: [facility] Address: [address] [place] [address], [place] [address] Performed By: #### 2 4323-8 ####[facility] LABIA [id number] [place] [address] [place] ESTIMATED GLOMERULAR FILTRATION RATE 105 mL/min/1.73m??? Normal >=60 [facility] Comment on above: Order Comment: Speci men Type: BLOOD SPECIMENOrdering Facility: [facility] Address: [address] [place] [address], [place] [address] Result Comment: Ashley mated Glomerular Filtration Rate (eGFR) is calculated using the 2020 CKD-EPI creatinine equation. This equation utilizes serum creatinine, sex, and age as parameters. The creatinine assay has traceable calibration to isotope dilution-mass spectrometry. Refer to KDIGO guidelines for clinical interpretation. In patients with unstable renal function, e.g. those with acute kidney injury, the eGFR may not accurately reflect actual GFR. Performed By: #### 2 4323-8 ####[facility] LABCLIA [id number] [address] [address] [place] Glucose [Mass/Vol] 154 mg/dL High 74-99 [facility] Comment on above: Order Comment: Speci men Type: BLOOD SPECIMENOrdering Facility: [facility] Address: [address] [place] [address] Result Comment: The [place] Diabetes Association (ADA) provides guidance for cutoff values for fasting glucose and random glucose. The ADA defines fasting as no caloric intake for at least 8 hours. Fasting plasma glucose results between 100 to 125 mg/dL indicate increased risk for diabetes (prediabetes). Fasting plasma glucose results greater than or equal to 126 mg/dL meet the criteria for diagnosis of diabetes. In the absence of unequivocal hyperglycemia, results should be confirmed by repeat testing. In a patient with classic symptoms of hyperglycemia or hyperglycemic crisis, random plasma glucose results greater than or equal to 200 mg/dL meet the criteria for diagnosis of diabetes. Reference: Standards of Medical Care in Diabetes 2016, [place] Diabetes Association. Diabetes Care. 2016.39(Suppl 1). Performed By: #### 2 4323-8 ####[facility] LABCLIA [id number] [place] [address] [place] Potassium [Moles/Vol] 4.7 mmol/L Normal 3.7-5.1 [facility] Comment on above: Order Comment: Speci men Type: BLOOD SPECIMENOrdering Facility: [facility] Address: [address] [place] [address] Performed By: #### 2 4323-8 ####[facility] LABCLIA [id number] [place] [id number] [place] Protein [Mass/Vol] 7.2 g/dL Normal 6.3-8.0 [facility] Comment on above: Order Comment: Speci men Type: BLOOD SPECIMENOrdering Facility: [facility] Address: [address] [place] [address] Performed By: #### 2 4323-8 ####[facility] LABCLIA [id number] [place] [id number] [place] Sodium [Moles/Vol] 139 mmol/L Normal 136-144 [facility] Comment on above: Order Comment: Speci men Type: BLOOD SPECIMENOrdering Facility: [facility] Address: [address] [place] [address] Performed By: #### 2 4323-8 ####[facility] LABCLIA [id number] [address] [place] Urea nitrogen [Mass/Vol] 13 mg/dL Normal 9-24 [facility] Comment on above: Order Comment: Speci men Type: BLOOD SPECIMENOrdering Facility: [facility] Address: [address] [place] [address] Performed By: #### 2 4323-8 ####[facility] LABCLIA [id number] [address] OF [facility] CNPNon 02-06-2023 CNPN Telephone (HCSIND) -------- DARWINCAYLA ([id number]) 1970 M Date Time Provider Department 02/06/23 MARLEY AREVALO During your visit today, we recorded the following information about you: Marley Arevalo RN 02/06/2023 8:42 AM Signed Bjorn, I am the home care nurse who was to see Cayla today. He refused a visit, he would only like his main nurse to see him. He will be unmade, thank you. aMrley Arevalo RN Allergies As of Date: 02/06/2023 Noted Allergy Reaction DICLOFENAC 07/12/2018 4 - Hives ETANERCEPT 04/14/2017 7 - Swelling FOLIC ACID 10/06/2016 8 - GI Upset Comments: dizzy/light headed LEVOFLOXACIN 08/22/2022 14 - Other: See Comments Comments: abdominal pain and cramping, stiffness in neck METHOTREXATE 10/06/2016 8 - GI Upset Comments: dizzy, light headed, diarrhea/vomiting PENICILLINS 04/14/2017 4 - Hives PLAQUENIL (HYDROXYCHLOROQUINE SUL*10/06/2016 8 - GI Upset Comments: dizzy/light headed RIVAROXABAN 04/14/2017 8 - GI Upset SULFA (SULFONAMIDE ANTIBIOTICS) 08/16/2022 4 - Hives WARFARIN 04/14/2017 8 - GI Upset Date Reviewed: 01/28/2023 Reviewed by: Mely Roblero RN - Fully Assessed Reason for Visit: Home Care [4073] Cmt: Unmade visit Prescriptions as of 02/06/2023 - sulfamethoxazole-trimeth oprim (BACTRIM) 400-80 mg per tablet Take 1 tablet by mouth twice daily. - metoprolol tartrate, short acting, (LOPRESSOR) 25 mg tablet Take 50 mg by mouth twice daily. - HYDROcodone-acetaminophe n (NORCO) 5-325 mg per tablet Take 1 tablet by mouth every 6 hours as needed for pain. - benzonatate (TESSALON PERLES) 100 mg capsule Take 100 mg by mouth twice daily as needed for cough. - furosemide (LASIX) 20 mg tablet Take 40 mg by mouth once daily. - furosemide (LASIX) 20 mg tablet Take 20 mg by mouth once daily. take at 1p - OXYGEN, HOME THERAPY, 4 L/min by Nasal Cannula route continuous. - fluticasone prp-sod.chl,bicarb 50 mcg- 0.9 % ksps Use 2 Sprays in the nose once daily as needed (allergy s/s). - nystatin (NYSTOP) powder Apply 1 application to affected area twice daily. - nqpyfqddx-kexddv-nynozob ne HCl (PRIZOTRAL) 2.5-2.5-3.88 % cream Apply 1 Each to affected area once daily. apply topically with wound care - albuterol HFA (VENTOLIN HFA) 90 mcg/actuation inhaler Inhale 2 Puffs as instructed every 6 hours as needed for wheezing/shortness of breath. - ascorbic acid, vitamin C, (VITAMIN C) 500 mg tablet Take 500 mg by mouth once daily. - aspirin, enteric coated (ASPIRIN, ENTERIC COATED) 81 mg EC tablet Take 81 mg by mouth once daily. - losartan (COZAAR) 25 mg tablet Take 25 mg by mouth twice daily. - glipiZIDE (GLUCOTROL XL) 2.5 mg 24 hr tablet Take 2.5 mg by mouth once daily. - bumetanide (BUMEX) 1 mg tablet Take 1 mg by mouth once daily as needed (swelling). - doxycycline hyclate (VIBRAMYCIN) 100 mg capsule Take 100 mg by mouth twice daily. - metoprolol tartrate, short acting, (LOPRESSOR) 25 mg tablet Take 1 tablet by mouth every 12 hours. - oxycodone HCl (OXYCODONE ORAL) Take 5 mg by mouth three times daily as needed (pain). - ticagrelor (BRILINTA) 90 mg tablet Take 90 mg by mouth twice daily. - polyethylene glycol 3350 (MIRALAX) 17 gram/dose powder Take 17 g by mouth once daily. - predniSONE (DELTASONE) 5 mg tablet 17.5 mg daily for 2 week, continue taper by 2.5 mg every 2 weeks. - dicyclomine (BENTYL) 20 mg tablet take 1 tablet by mouth every 6 hours - omeprazole (PRILOSEC) 20 mg capsule take 2 capsules by mouth once daily - Levothyroxine 150 mcg cap Take 300 mcg by mouth once daily. - cyanocobalamin, vitamin B-12, 1,000 mcg/mL kit by INJECTION(UNSPECIFIED PARENTERAL ROUTES) route. - cyanocobalamin (VITAMIN B-12) 500 mcg tablet Take by mouth once daily. - hydrocortisone (ANUSOL-HC) 2.5 % rectal cream 1 application by RECTAL route four times daily as needed. - gabapentin (NEURONTIN) 100 mg capsule Take 100 mg by mouth daily at bedtime. - losartan-hydrochlorothia zide (HYZAAR) 100-25 mg per tablet Take 1 tablet by mouth once daily. - dabigatran etexilate (PRADAXA) 150 mg cap Take 150 mg by mouth twice daily. - diazepam (VALIUM) 10 mg tablet Take 10 mg by mouth four times daily as needed for anxiety. - atorvastatin (LIPITOR) 40 mg tablet Take 40 mg by mouth once daily. - tamsulosin ER (FLOMAX) 0.4 mg cp24 Take 0.4 mg by mouth once daily. - furosemide (LASIX) 20 mg tablet (Discontinued) Take 20 mg by mouth twice daily. Take 2 tablets by mouth in the morning and 1 tablet by mouth at 1pm Problem List As Of Date 02/06/2023 Noted Resolved Stomach ulcer [K25.9] Hypercholesteremia [E78.00] Hip pain [M25.559] Overactive bladder [N32.81] Panic attacks [F41.0] Constipation [K59.00] Depression [F32.A] Hip disease [M25.9] Anxiety [F41.9] Hypoglycemic syndrome [E16.2] Obesity [E66.9] 07/05/2018 Abnormal laboratory test [R89.9] 07/05/2018 (more content not included)... Normal [facility] HbA1c (Bld)on 02-05-2023 Average glucose Estimated from glycated hemoglobin (Bld) [Mass/Vol] 157 mg/dL Normal [facility] Comment on above: Order Comment: Sreekanth ludwig Type: BLOOD SPECIMENOrdering Facility: [facility] Address: [address] [place] [address], [place] [address] Result Comment: eAG: (Estimated average glucose) is a calculated value from HgbA1c and is public relations representative of the average blood glucose level in the last 2-3 month period. Performed By: #### 5 5454-3 ####[facility] LABIA [id number] [place] [address] [place] HbA1c (Bld) [Mass fraction] 7.1 % High 4.3-5.6 [facility] Comment on above: Order Comment: Sreekanth ludwig Type: BLOOD SPECIMENOrdering Facility: [facility] Address: [address] [place] [address], [place] [address] Result Comment: [place] Diabetes Association guidelines indicate that patients with HgbA1c in the range 5.7-6.4% are at increased risk for development of diabetes, and intervention by lifestyle modification may be beneficial. HgbA1c greater or equal to 6.5% is considered diagnostic of diabetes. Performed By: #### 5 5454-3 ####[facility] LABCLIA [id number] [address] [place] Ines 01-02-2023 CHANGN Telephone (HCSIND) -------- OSMARCAYLA Bermudez ([id number]) 1970 M Date Time Provider Department 01/02/23 RIGOBERTO ROMANO During your visit today, we recorded the following information about you: Rigoberto Romano RN 01/02/2023 10:19 AM Signed error Allergies As of Date: 01/02/2023 Noted Allergy Reaction DICLOFENAC 07/12/2018 4 - Hives ETANERCEPT 04/14/2017 7 - Swelling FOLIC ACID 10/06/2016 8 - GI Upset Comments: dizzy/light headed LEVOFLOXACIN 08/22/2022 14 - Other: See Comments Comments: abdominal pain and cramping, stiffness in neck METHOTREXATE 10/06/2016 8 - GI Upset Comments: dizzy, light headed, diarrhea/vomiting PENICILLINS 04/14/2017 4 - Hives PLAQUENIL (HYDROXYCHLOROQUINE SUL*10/06/2016 8 - GI Upset Comments: dizzy/light headed RIVAROXABAN 04/14/2017 8 - GI Upset SULFA (SULFONAMIDE ANTIBIOTICS) 08/16/2022 4 - Hives WARFARIN 04/14/2017 8 - GI Upset Date Reviewed: 12/25/2022 Reviewed by: Cathy Perez RN - Fully Assessed Reason for Visit: Home Care [4073] Cmt: Erroneous entry. Prescriptions as of 01/02/2023 - sulfamethoxazole-trimeth oprim (BACTRIM) 400-80 mg per tablet Take 1 tablet by mouth twice daily. - metoprolol tartrate, short acting, (LOPRESSOR) 25 mg tablet Take 50 mg by mouth twice daily. - HYDROcodone-acetaminophe n (NORCO) 5-325 mg per tablet Take 1 tablet by mouth every 6 hours as needed for pain. - benzonatate (TESSALON PERLES) 100 mg capsule Take 100 mg by mouth twice daily as needed for cough. - furosemide (LASIX) 20 mg tablet Take 40 mg by mouth once daily. - furosemide (LASIX) 20 mg tablet Take 20 mg by mouth once daily. take at 1p - OXYGEN, HOME THERAPY, 4 L/min by Nasal Cannula route continuous. - fluticasone prp-sod.chl,bicarb 50 mcg- 0.9 % ksps Use 2 Sprays in the nose once daily as needed (allergy s/s). - nystatin (NYSTOP) powder Apply 1 application to affected area twice daily. - wipberhbu-uogxfo-wetikay ne HCl (PRIZOTRAL) 2.5-2.5-3.88 % cream Apply 1 Each to affected area once daily. apply topically with wound care - albuterol HFA (VENTOLIN HFA) 90 mcg/actuation inhaler Inhale 2 Puffs as instructed every 6 hours as needed for wheezing/shortness of breath. - ascorbic acid, vitamin C, (VITAMIN C) 500 mg tablet Take 500 mg by mouth once daily. - aspirin, enteric coated (ASPIRIN, ENTERIC COATED) 81 mg EC tablet Take 81 mg by mouth once daily. - omeprazole (PRILOSEC) 20 mg capsule Take 40 mg by mouth twice daily. - losartan (COZAAR) 25 mg tablet Take 25 mg by mouth twice daily. - glipiZIDE (GLUCOTROL XL) 2.5 mg 24 hr tablet Take 2.5 mg by mouth once daily. - bumetanide (BUMEX) 1 mg tablet Take 1 mg by mouth once daily as needed (swelling). - doxycycline hyclate (VIBRAMYCIN) 100 mg capsule Take 100 mg by mouth twice daily. - metoprolol tartrate, short acting, (LOPRESSOR) 25 mg tablet Take 1 tablet by mouth every 12 hours. - oxycodone HCl (OXYCODONE ORAL) Take 5 mg by mouth three times daily as needed (pain). - ticagrelor (BRILINTA) 90 mg tablet Take 90 mg by mouth twice daily. - polyethylene glycol 3350 (MIRALAX) 17 gram/dose powder Take 17 g by mouth once daily. - predniSONE (DELTASONE) 5 mg tablet 17.5 mg daily for 2 week, continue taper by 2.5 mg every 2 weeks. - dicyclomine (BENTYL) 20 mg tablet take 1 tablet by mouth every 6 hours - omeprazole (PRILOSEC) 20 mg capsule take 2 capsules by mouth once daily - Levothyroxine 150 mcg cap Take 300 mcg by mouth once daily. - cyanocobalamin, vitamin B-12, 1,000 mcg/mL kit by INJECTION(UNSPECIFIED PARENTERAL ROUTES) route. - cyanocobalamin (VITAMIN B-12) 500 mcg tablet Take by mouth once daily. - hydrocortisone (ANUSOL-HC) 2.5 % rectal cream 1 application by RECTAL route four times daily as needed. - gabapentin (NEURONTIN) 100 mg capsule Take 100 mg by mouth daily at bedtime. - losartan-hydrochlorothia zide (HYZAAR) 100-25 mg per tablet Take 1 tablet by mouth once daily. - dabigatran etexilate (PRADAXA) 150 mg cap Take 150 mg by mouth twice daily. - diazepam (VALIUM) 10 mg tablet Take 10 mg by mouth four times daily as needed for anxiety. - atorvastatin (LIPITOR) 40 mg tablet Take 40 mg by mouth once daily. - tamsulosin ER (FLOMAX) 0.4 mg cp24 Take 0.4 mg by mouth once daily. - furosemide (LASIX) 20 mg tablet (Discontinued) Take 20 mg by mouth twice daily. Take 2 tablets by mouth in the morning and 1 tablet by mouth at 1pm Problem List As Of Date 01/02/2023 Noted Resolved Stomach ulcer [K25.9] Hypercholesteremia [E78.00] Hip pain [M25.559] Overactive bladder [N32.81] Panic attacks [F41.0] Constipation [K59.00] Depression [F32.A] Hip disease [M25.9] Anxiety [F41.9] Hypoglycemic syndrome [E16.2] Obesity [E66.9] 07/05/2018 Abnormal laboratory test [R89.9] 07/05/2018 Perianal abscess [K61.0] 08/16/2022 Nicotine use disorder, F17.2 [F17.200] 08/03 (more content not included)... Normal [facility] 08-19-2022 [facility] Telephone ([facility]) -------- CAYLA GRANADOS ([id number]) 1970 M Date Time Provider Department 08/19/22 LORNA GERMAN [facility] During your visit today, we recorded the following information about you: Lorna German [facility] 08/19/2022 10:10 AM Addendum Patient was discharged evening on 08/18/2022 and was leaving before his discharge med rec could be reviewed. I did speak with patient as he was leaving and reviewed medications with promise to call in the morning to review medications. Notable medications that needed to be addressed from his home medications. Medications Added Albuterol MDI Vitamin C 500mg daily ASA 81mg daily Bumetanide 1mg that he takes in addition to his scheduled furosemide as needed Flonase Glipizide ER 2.5mg daily Duonebe nebulizer q6h prn Losartan 25mg bid (not losartan/HCTZ) Nicotine patch 21mg daily Medications Changed Furosemide is 20mg tablet 2 in the morning and 1 in the early afternoon He takes prednisone on a sliding scale and is currently using 10mg BID Gabapentin 100mg qhs (filled #90 on 04/02/22) Omeprazole is BID Medications Removed Tamsulosin Losartan/HCTZ Vtiamin B12 oral Vitamin B12 injection Dicyclomine Other notable medication issues Patient has been on doxycycline 100mg BID (filled #60 for 30 day supply on 07/09/2022) for suppression of these abscesses he gets. Per patient he interrupted the doxycycline recently when he was prescribed a Z-pack. He believes this is what may have resulted in his most recent presentation and hospitalization Patient also had Trulicity filled but did not start taking yet. He should follow with PCP for this PLAN d/w discharging [facility] [place] on rounds 08/19/22 Patient was discharged with 7 days of levofloxacin and metronidazole. Resume home doxycycline Patient said the heart group in [place] wanted him on ASA, Brilinta, and Pradaxa. 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 Patient has bumetanide he uses as needed in addition to the furosemide if he needs it. Advised patient to clarify with PCP who is prescribing both. Called an discussed all the above with the patient who verbalized understanding. Allergies As of Date: 08/19/2022 Noted Allergy Reaction DICLOFENAC 07/12/2018 4 - Hives ETANERCEPT 04/14/2017 7 - Swelling FOLIC ACID 10/06/2016 8 - GI Upset Comments: dizzy/light headed METHOTREXATE 10/06/2016 8 - GI Upset Comments: dizzy, light headed, diarrhea/vomiting PENICILLINS 04/14/2017 4 - Hives PLAQUENIL (HYDROXYCHLOROQUINE SUL*10/06/2016 8 - GI Upset Comments: dizzy/light headed RIVAROXABAN 04/14/2017 8 - GI Upset SULFA (SULFONAMIDE ANTIBIOTICS) 08/16/2022 4 - Hives WARFARIN 04/14/2017 8 - GI Upset Date Reviewed: 08/18/2022 Reviewed by: Ara Grande RN - Fully Assessed Reason for Visit: Medication Problem [65] Prescriptions as of 08/27/2022 - fluticasone prp-sod.chl,bicarb 50 mcg- 0.9 % ksps Use 2 Sprays in the nose once daily as needed (allergy s/s). - fluconazole (DIFLUCAN) 200 mg tablet Take 200 mg by mouth one time only. - nystatin (NYSTOP) powder Apply 1 application to affected area twice daily. - wpyktozeb-mtdhim-fqgyvfb ne HCl (PRIZOTRAL) 2.5-2.5-3.88 % cream Apply 1 Each to affected area once daily. apply topically with wound care - albuterol HFA (VENTOLIN HFA) 90 mcg/actuation inhaler Inhale 2 Puffs as instructed every 6 hours as needed for wheezing/shortness of breath. - ascorbic acid, vitamin C, (VITAMIN C) 500 mg tablet Take 500 mg by mouth once daily. - aspirin, enteric coated (ASPIRIN, ENTERIC COATED) 81 mg EC tablet Take 81 mg by mouth once daily. - omeprazole (PRILOSEC) 20 mg capsule Take 20 mg by mouth twice daily. - losartan (COZAAR) 25 mg tablet Take 25 mg by mouth twice daily. - glipiZIDE (GLUCOTROL XL) 2.5 mg 24 hr tablet Take 2.5 mg by mouth once daily. - bumetanide (BUMEX) 1 mg tablet Take 1 mg by mouth once daily as needed (swelling). - doxycycline hyclate (VIBRAMYCIN) 100 mg capsule Take 100 mg by mouth twice daily. - Miscellaneous Medical Supply 1 Each once daily. Wound care supplies: loaf of 4x4 gauze, 30 5x9 inch abdominal pads. Wound measurement: 1x2.5x3.5 to perianal area at left side. Small to moderate drainage. - metoprolol tartrate, short acting, (LOPRESSOR) 25 mg tablet Take 1 tablet by mouth every 12 hours. - oxycodone HCl (OXYCODONE ORAL) Take 5 mg by mouth three times daily as needed (pain). - ticagrelor (BRILINTA) 90 mg tablet Take 90 mg by mouth twice daily. - polyethylene glycol 3350 (MIRALAX) 17 gram/dose powder Take 17 g by mouth once daily. - predniSONE (DELTASONE) 5 mg tablet 17.5 mg daily for 2 week, continue taper by 2.5 mg every 2 weeks. - dicyclomine (BENTYL) 20 mg tablet take 1 tablet by mouth every 6 hours - omeprazole (PRILOSEC) 20 mg capsule take 2 capsules by mouth once daily (more content not included)... Normal [facility] Basic metabolic 2000 panelon 08-18-2022 Anion gap [Moles/Vol] 9 mmol/L Normal 9-18 [facility] Comment on above: Order Comment: Speci men Type: BLOOD SPECIMEN Ordering Facility: [facility] Address: [address] [address] Performed By: #### 2 4321-2 #### [facility] CLIA [id number] [address] [place] [address] Calcium [Mass/Vol] 9.2 mg/dL Normal 8.5-10.2 [facility] Comment on above: Order Comment: Speci men Type: BLOOD SPECIMEN Ordering Facility: [facility] Address: [address] [address] Performed By: #### 2 4321-2 #### [facility] CLIA [id number] [address] STATES OF [facility] Chloride [Moles/Vol] 100 mmol/L Normal 97-105 [facility] Comment on above: Order Comment: Speci men Type: BLOOD SPECIMEN Ordering Facility: [facility] Address: [address] [address] Performed By: #### 2 4321-2 #### [facility] CLIA [id number] [address] [place] [address] CO2 [Moles/Vol] 29 mmol/L Normal 22-30 [facility] Comment on above: Order Comment: Speci men Type: BLOOD SPECIMEN Ordering Facility: [facility] Address: [address] [address] Performed By: #### 2 4321-2 #### [facility] CLIA [id number] [address] Creatinine [Mass/Vol] 0.91 mg/dL Normal 0.73-1.22 [facility] Comment on above: Order Comment: Specwillam oziel Type: BLOOD SPECIMEN Ordering Facility: [facility] Address: [address] [place] [address] Performed By: #### 2 4321-2 #### [facility] CLIA [id number] [address] ESTIMATED GLOMERULAR FILTRATION RATE 101 mL/min/1.73m??? Normal >=60 [facility] Comment on above: Order Comment: Speci men Type: BLOOD SPECIMEN Ordering Facility: [facility] Address: [address] [place] [address] Result Comment: Ashley mated Glomerular Filtration Rate (eGFR) is calculated using the 2020 CKD-EPI creatinine equation. This equation utilizes serum creatinine, sex, and age as parameters. The creatinine assay has traceable calibration to isotope dilution-mass spectrometry. Refer to KDIGO guidelines for clinical interpretation. In patients with unstable renal function, e.g. those with acute kidney injury, the eGFR may not accurately reflect actual GFR. Performed By: #### 2 4321-2 #### [facility] CLIA [id number] [address] [place] Glucose [Mass/Vol] 133 mg/dL High 74-99 [facility] Comment on above: Order Comment: Maritzawillam ludwig Type: BLOOD SPECIMEN Ordering Facility: [facility] Address: [address] [place] [address] Result Comment: The [place] Diabetes Association (ADA) provides guidance for cutoff values for fasting glucose and random glucose. The ADA defines fasting as no caloric intake for at least 8 hours. Fasting plasma glucose results between 100 to 125 mg/dL indicate increased risk for diabetes (prediabetes). Fasting plasma glucose results greater than or equal to 126 mg/dL meet the criteria for diagnosis of diabetes. In the absence of unequivocal hyperglycemia, results should be confirmed by repeat testing. In a patient with classic symptoms of hyperglycemia or hyperglycemic crisis, random plasma glucose results greater than or equal to 200 mg/dL meet the criteria for diagnosis of diabetes. Reference: Standards of Medical Care in Diabetes 2016, [place] Diabetes Association. Diabetes Care. 2016.39(Suppl 1). Performed By: #### 2 4321-2 #### [facility] CLIA [id number] [address] [place] Potassium [Moles/Vol] 3.8 mmol/L Normal 3.7-5.1 [facility] Comment on above: Order Comment: Sreekanth ludwig Type: BLOOD SPECIMEN Ordering Facility: [facility] Address: [address] [place] [address] Performed By: #### 2 4321-2 #### [facility] CLIA [id number] [address] [place] [address] STATES OF [facility] Sodium [Moles/Vol] 138 mmol/L Normal 136-144 [facility] Comment on above: Order Comment: Sreekanth ludwig Type: BLOOD SPECIMEN Ordering Facility: [facility] Address: [address] [place] [address] Performed By: #### 2 4321-2 #### [facility] CLIA [id number] [address] [place] [address] Urea nitrogen [Mass/Vol] 10 mg/dL Normal 9-24 [facility] Comment on above: Order Comment: Maritzai oziel Type: BLOOD SPECIMEN Ordering Facility: [facility] Address: [address] [place] [address] Performed By: #### 2 4321-2 #### [facility] CLIA [id number] [address] OF [facility] CASE MANAGEMon 08-18-2022 CASE MANAGEM HNO ID: [id number] Author: Leann Garcia RN Service: ? Author Type: Registered Nurse Type: Care Mgt Progress Note Filed: 08/18/2022 5:03 PM Note Text: CARE MANAGEMENT DISCHARGE NOTE SERVICE DATE: 08/18/2022 SERVICE TIME: 5:03 PM LOS: 2 days Admission Date: 08/16/2022 DISCHARGE ARRANGEMENT (list agency and phone number) Discharge Arrangement: Home with Home Health Provider Name: [facility] CAREGIVER ASSESSMENT: Caregiver is ready, willing and able to meet the patient's needs as recommended by the inter-professional team:: Yes Patient's transition needs and plan for meeting these needs: Home with [facility] HANDOFF COMMUNICATION: Handoff to: Primary Care Physician Primary Care Physician Name/Phone: Dillon Norris DO TRANSPORTATION ARRANGEMENTS: Transportation Arrangements: Car ADDITIONAL CONTACT RESOURCES: Patient to discharge home with [facility], family to transport. SIGNATURE: Leann Garcia RN PATIENT NAME: Cayla Granados DATE: August 18, 2022 TIME: 5:02 PM PAGER/CONTACT #: [phone] [facility] CASE MGT INIT [facility] 2022 CASE MGT INIT [facility] HNO ID: [id number] Author: Leann Garcia RN Service: ? Author Type: Registered Nurse Type: Care Mgt Initial Assessment Filed: 08/18/2022 4:44 PM Note Text: CARE MANAGEMENT: ASSESSMENT AND DISCHARGE PLAN SERVICE DATE: August 18, 2022 SERVICE TIME: 2:53 PM PRIMARY CARE PHYSICIAN: Dillon Norris DO Primary Contact: Extended Emergency Contact Information Primary Emergency Contact: RafaelNevaeh khoury Mobile Relation: Daughter ADMISSION STATUS: Inpatient Insurance Provider: [place] NEED[place] PRIOR TO DISCHARGE Needs Prior to Discharge: Wound Care;Home Care Order POTENTIAL TRANSITION PLANS Home Care Based on clinical judgement, Care Management will address the following needs: Medical;Cognitive;Social ;Functional Patient's perception of need for this admission: abscess ADVANCE DIRECTIVES Current Advance Directive: None Technical Director Attempted to Assist with AD Completion: Yes Action: Education Provided MS/BEHAVIOR Baseline Mental Status Prior to this Illness what was the patient's Baseline Mental Status?: Alert Prior to this illness, has anyone described the patient having any of the following behaviors?: Not Applicable Relationship of the informant to the patient:: Self READMISSION Last Discharge Date: N/A Is this Within the Past 30 days? From what level of care did patient present?: Home Last discharge within 30 days: No PATIENT SCREEN Patient/Commissary Agent Stated Goals: To have reduction in symptoms;To improve my functional status;To return home to life as it was Payor gaps or opportunities/considerat ions/situation: Medicaid/OOS Medicaid Under the care of a PCP?: Yes, External Provider Provider Name: Dillonevelin Norris, DO Last Known Visit: unknown Does the patient have transportation upon discharge?: Yes Use of any community resources?: No Does the patient have a stable and supportive living arrangement and home setting?: Yes Are there any potential risks or gaps identified by risk/functional/fall,etc . scores in the EMR?: No Based on clinical judgement, Care Management will address the following needs: Medical;Cognitive;Social ;Functional CAREGIVER ASSESSMENT Caregiver is ready, willing and able to meet the patient's needs as recommended by the inter-professional team:: Yes Name of Caregiver: Nevaeh Granados (Daughter) [phone] Patient's transition needs and plan for meeting these needs: home with [facility] Medical Needs: Two or more chronic diseases;Wound Care - active or potential Health Issues Impacting Discharge Plan: Newly diagnosed Newly Diagnosed: perianal abscess Medication Adherance I am convinced of the importance of my prescription medication: 0 - Agree Mostly I worry that my prescription medication will do more harm than good to me : 0 - Disagree Mostly I feel financially burdened by my nfa-vi-rruglu expenses for my prescription medication:: 0 - Disagree Mostly Risk Score: 0 Patient is categorized as: Low risk < 2 SOCIAL Living Arrangements: Home Lives With: Spouse Financial Resources: Unemployed Supportive Patient Contact:: Yes Contact Resources: Family Family Name/Phone: Nevaeh Granados (Daughter) [phone] Is Patient Psychosocially Complex?: No Contact Resources: Family Family Name/Phone: Nevaeh Granados (Daughter) [phone] Health Literacy How often do you need to have someone help you when you read instructions, pamphlets, or other written material from your doctor or pharmacy? : 2 - Rarely How confident are you filling out medical forms by yourself?: 2 - Quite a bit If Patient scores > 3 on either question, the following interventions were put into place:: Patient did not score > 3 on either question. Food Insecurity: No Food Insecurity Worried About Running Out of Food in the Last Year: Never true Ran Out of Food in the Last Year: Never true Financial Resource Strain: Low Risk Difficulty of Paying Living Expenses: Not hard at all Transportation Needs: No Transportation Needs Lack of Transportation (Medical): No Lack of Transportation (Non-Medical): No Housing Stability: Low Risk Unable to Pay for Housing in the Last Year: No Number of Places Lived in the Last Year: 1 Unstable Housing in the Last Year: No BEHAVIORAL/COGNITIVE Psychosocial Psychosocial Needs: None FUNCTIONAL How do you manage to accomplish the following: Independent: Ambulation;Bathe/Shower; Dress;Meals/Meal Prep;Going to the bathroom;Medication Management;Transportatio n to appointments/community Services/Needs//Equipmen t Does Patient Currently Receive Any Community Services or Home Care?: None Equipment Prior to Admission: None Has the Patient Been in a Half-Way Facility in the Past 30 days?: No FREEDOM OF CHOICE EXPLAINED: Are you interested in bedside delivery of your medications? Yes Is Patient Psychosocially Complex?: No ASSESSMENT AND PLAN: (more content not included)... Normal [facility] CBC panel Auto (Bld)on 08-18 Erythrocyte distribution width (RBC) [Ratio] 18.7 % High 11.5-15.0 [facility] Comment on above: Order Comment: Sreekanth ludwig Type: BLOOD SPECIMEN Ordering Facility: [facility] Address: [address] [place] [address] Performed By: #### 5 8410-2 #### [facility] CLIA [id number] [address] [place] [address] [place] Hematocrit (Bld) [Volume fraction] 36.0 % Low 39.0-51.0 [facility] Comment on above: Order Comment: Sreekanth ludwig Type: BLOOD SPECIMEN Ordering Facility: [facility] Address: [address] [place] [address] Performed By: #### 5 8410-2 #### [facility] CLIA [id number] [address] [place] [address] [place] Hemoglobin (Bld) [Mass/Vol] 9.5 g/dL Low 13.0-17.0 [facility] Comment on above: Order Comment: Speci men Type: BLOOD SPECIMEN Ordering Facility: [facility] Address: [address] [address] Performed By: #### 5 8410-2 #### [facility] CLIA [id number] [address] MCH (RBC) [Entitic mass] 20.9 pg Low 26.0-34.0 [facility] Comment on above: Order Comment: Speci men Type: BLOOD SPECIMEN Ordering Facility: [facility] Address: [address] [address] Performed By: #### 5 8410-2 #### [facility] CLIA [id number] [address] OF [facility] MCHC (RBC) [Mass/Vol] 26.4 g/dL Low 30.5-36.0 [facility] Comment on above: Order Comment: Speci men Type: BLOOD SPECIMEN Ordering Facility: [facility] Address: [address] [address] Performed By: #### 5 8410-2 #### [facility] CLIA [id number] [address] MCV (RBC) [Entitic vol] 79.3 fL Low 80.0-100.0 [facility] Comment on above: Order Comment: Speci men Type: BLOOD SPECIMEN Ordering Facility: [facility] Address: [address] [address] Performed By: #### 5 8410-2 #### [facility] CLIA [id number] [address] Nucleated RBC (Bld) [#/Vol] 10*3/uL Normal <0.01 [facility] Comment on above: Order Comment: Speci men Type: BLOOD SPECIMEN Ordering Facility: [facility] Address: [address] [address] Performed By: #### 5 8410-2 #### [facility] CLIA [id number] [address] [place] Platelet mean volume (Bld) [Entitic vol] 8.9 fL Low 9.0-12.7 [facility] Comment on above: Order Comment: Speci men Type: BLOOD SPECIMEN Ordering Facility: [facility] Address: [address] [place] [address] Performed By: #### 5 8410-2 #### [facility] CLIA [id number] [address] [place] Platelets (Bld) [#/Vol] 361 10*3/uL Normal 150-400 [facility] Comment on above: Order Comment: Speci men Type: BLOOD SPECIMEN Ordering Facility: [facility] Address: [address] [place] [address] Performed By: #### 5 8410-2 #### [facility] CLIA [id number] [address] RBC (Bld) [#/Vol] 4.54 10*6/uL Normal 4.20-6.00 [facility] Comment on above: Order Comment: Speci men Type: BLOOD SPECIMEN Ordering Facility: [facility] Address: [address] [place] [address] Performed By: #### 5 8410-2 #### [facility] CLIA [id number] [address] [place] WBC (Bld) [#/Vol] 13.90 10*3/uL High 3.70-11.00 [facility] Comment on above: Order Comment: Speci men Type: BLOOD SPECIMEN Ordering Facility: [facility] Address: [address] [place] [address] Performed By: #### 5 8410-2 #### [facility] CLIA [id number] [address] CNDSon 08-18-2022 [facility] HNO ID: [id number] Author: China Laurent DO Service: Hospital Medicine Author Type: Resident Type: Discharge Summary Filed: 08/19/2022 4:23 PM Note Text: -------- Attestation signed by Mar Hoffman MD at 08/19/2022 6:08 PM (Updated) I personally saw and examined the patient on 08/18/22. I reviewed the resident's note. I agree with the resident's assessment and plan unless otherwise noted. DC time 35 min -------- DISCHARGE SUMMARY PATIENT NAME: Cayla Granados ADMISSION DATE: 08/16/2022 DISCHARGE DATE: 08/18/2022 Attending Physician: No att. providers found Code Status: Not on file Highest Readmission Risk Score: 23 The 30 day readmissions risk score is derived from an internally validated risk model which evaluates patient level characteristics, utilization history, medication orders and lab results up until the day of discharge. Patients with a score of 40 or above are considered highest risk for readmission. Specific patient level drivers will be listed at the bottom of the summary. The 30 day readmissions risk score is derived from an internally validated risk model which evaluates patient level characteristics, utilization history, medication orders and lab results up until the day of discharge. Patients with a score of 40 or above are considered highest risk for readmission. Specific patient level drivers will be listed at the bottom of the summary. PRINCIPAL PROBLEM: Perianal abscess Hospital Course: Mr. Cayla Granados is a 52 year old male with PMH significant for: - Hypertension on losartan mg 25 BID, metoprolol tartrate 25 BID - Hyperlipidemia on atorvastatin 40 mg - Diabetes on Trulicity 0.75mg/0.5ml, 0.5ml once weekly - CAD s/p stenting RCA aspirin 81mg and brilinta 90mg BID - Chronic venous congestion on Betamide 1 mg BID as needed, furosemide 20 mg in the morning and 10 mg in the afternoon - History of deep vein thrombosis on dabigatran 150 mg BID - Obesity - Hypothyroidism on thyroxine - BERT - COPD - Chronic hypoxic respiratory failure - Anxiety disorder - History of Fourniers's gangrene - History of cellulitis - History of perianal abscess - Rheumatoid arthritis, on chronic steroids currently 10mg BID - GERD on omeprazole 40mg Who presented from [facility] on 08/16/2022 with complaints of perianal abscess. Patient notes he had pain in the perianal region for about one week prior to admission. On day of admission, he notes the abscess started to drain which prompted ED visit. CT Pelvis (08/16/22) demonstrated inflammatory changes along the perineum anal soft tissue with tiny pockets of air. There was edema and trace fluid extending along the perineum and scrotum however no gas-forming inflammation detected. No gas-forming inflammation in the ischiorectal fossa, urogenital diaphragm or scrotum. Patient's wound was cultured and general surgery evaluated the patient and recommended medical management with wound packing and frequent dressing changes. Wound care was also on board and assisted with daily dressing changes. Patient was started on IV vancomycin, levofloxacin and clindamycin empirically. Wound culture on 08/18/2022 grew corynebacterium striatum, with sensitivities still pending on day of discharge. Because patient wished to be discharged rather than await final sensitivities and cultures, patient was to home with home health care on 7 days of Metronidazole and levofloxacin. Patient was continued on home medications as tolerated for hypertension, hyperlipidemia, diabetes, coronary artery disease, hypothyroidism, chronic venous congestion, chronic deep vein thrombosis, GERD, and rheumatoid arthritis. Patient was instructed to follow-up with outpatient PCP within one week of discharge. Operations During Hospitalization: None Procedures During Hospitalization: No procedures performed Active Hospital Problems as of 08/18/2022 Noted - Resolved POA Hospital * (Principal) Perianal abscess 08/16/2022 - Present Yes Nicotine use disorder, F17.2 08/18/2022 - Present Unknown Obesity, Class III, BMI >= 40 08/18/2022 - Present Unknown Resolved Hospital Problems as of 08/18/2022 None Transitions of Care Critical Issues: ARMENTA MEDICATION CHANGES: START Metroniadzole 500 mg TID for 7 days. START Levofloxacin 750 mg once daily for 7 days. RESTART home doxycycline at discharge. CONTINUE all medications as previously prescribed. MEDS to address as outpatient with PCP: - Patient on triple antiplatelet therapy, including Dabigatran, Brilinta, ASA. Should confirm that this regimen is appropriate. Patient did have stent placed to RCA in 2020, but since more than 1 year since stent placement unclear if Brilinta was intentionally continued or not. - Confi (more content not included)... Normal [facility] CONSULT PROGon 08-18-2022 CONSULT PROG HNO ID: [id number] Author: Eva Kan RPh Service: Pharmacy Author Type: Pharmacist Type: Consult Progress Note Filed: 08/18/2022 12:44 PM Note Text: PHARMACY VANCOMYCIN DOSING NOTE Patient Name: Cayla Granados Admission Date: 08/16/2022 Date of Consult: 08/18/2022 Time of Consult: 12:39 PM Indication: Skin/Soft tissue infection Goal Range: 10-20 mcg/mL RECOMMENDATIONS/PLAN: Pharmacy consulted for vancomycin dosing for Cayla Granados, a 52 year old, male who is being treated with vancomycin. 1. Patient is currently ordered Vancomycin 2 g q12h. Today is day 2 of therapy. 2. The most recent vancomycin level was 19.3 mcg/mL drawn at 1139 on 08/18. This is a 11.5 hour level on the 2nd day of therapy. 3. Will decrease vancomycin to 1.5 g with a dosing interval of q12h. Patient has level of 19 but this is prior to 4th dose, likely not yet at steady state. Patient with high BMI, risk of accumulation. Will decrease dose to 1.5g. 4. The next vancomycin level has been ordered for 08/20 (Completed) We will follow patient renal function, vancomycin levels and doses with you during the course of therapy. Additional recommendations will appear in follow up notes. If you have any questions, please contact pharmacy. Age: [age] year old Allergies: ALLERGIES Allergen Reactions Diclofenac Hives Etanercept Swelling Folic Acid GI Upset dizzy/light headed Methotrexate GI Upset dizzy, light headed, diarrhea/vomiting Penicillins Hives Plaquenil [Hydroxyc* GI Upset dizzy/light headed Rivaroxaban GI Upset Sulfa (Sulfonamide * Hives Warfarin GI Upset Last 3 Encounter Wt Readings: Date: Wt: 08/16/2022 212.7 kg (469 lb) 07/12/2018 195 kg (430 lb) 07/05/2018 195 kg (430 lb) Last 1 Encounter Ht Readings: Date: Ht: 08/16/2022 185.4 cm (6' 0.99 ) CrCl: 177 mL/min Temp (24hrs), Av.4 ?C (97.6 ?F), Min:36.1 ?C (97 ?F), Max:36.8 ?C (98.2 ?F) - Current Temp: 36.5 ?C (97.7 ?F) Labs BUN (mg/dL) Date Value 08/18/2022 10 08/17/2022 10 08/16/2022 10 Creatinine (mg/dL) Date Value 08/18/2022 0.91 08/17/2022 0.91 08/16/2022 0.91 WBC (k/uL) Date Value 08/18/2022 13.90 (H) 08/17/2022 12.69 (H) 08/16/2022 12.94 (H) Vancomycin Levels: Vancomycin (ug/mL) Date/Time Value 08/18/2022 1139 19.3 Eva Kan [facility] CONSULT PROG HNO ID: [id number] Author: Dillon Petty APRN.ELECTRICIAN SECOND Service: Wound/Ostomy Author Type: Nurse Practitioner Type: Consult Progress Note Filed: 08/18/2022 12:54 PM Note Text: WOUND CARE SERVICE CONSULT GIS SOFTWARE DEVELOPER NOTE SERVICE DATE: 08/18/2022 SERVICE TIME: 906 TIME SPENT (minutes): 30 REASON FOR CONSULT: perianal abscess CHIEF COMPLAINT: pain in perianal area Subjective HISTORY OF PRESENT ILLNESS: Mr. Granados is a 52 year old male who is seen today with Lanie Bartholomew, Wound/residential pest control technician, and presented to hospital with complaints of perianal abscess. PMH anxiety, depression, Grecia's gangrene. PERTINENT REVIEW OF SYSTEMS: GENERAL: denies fever or chills PAIN ASSESSMENT: endorses pain to left perianal area. SKIN: abscess in perianal area RESPIRATORY: denies SOB or cough GI/: denies N/V PAST MEDICAL HISTORY Diagnosis Date Anxiety Colon polyps Constipation Depression Gastritis Hip disease Hip pain Hypercholesteremia Hypoglycemic syndrome Nausea Overactive bladder Panic attacks Rheumatoid arthritis (HCC) Stomach ulcer PAST SURGICAL HISTORY Procedure Laterality Date COLONOSCOP W/ OR W/O BRSH SPEC 03/05/16 Colonoscopy mac [facility] EGD W/O OR W/BRUSH/WASH 03/05/16 EGD [facility] NONE Social History Tobacco Use Smoking status: Every Day Packs/day: 1.50 Types: Cigarettes Smokeless tobacco: Former Types: Chew Substance Use Topics Alcohol use: No Drug use: No FAMILY HISTORY Problem Relation Age of Onset Kidney Disease Father Breast Cancer Mother other (thyroid issues) Sister MEDICATIONS: Current Facility-Administered Medications Medication Dose Route Frequency NaCl 0.9% iv flush bag 20 mL INTRAVENOUS PRN clindamycin iv piggyback 900 mg in D5W 50 mL (CLEOCIN) 900 mg INTRAVENOUS q 8 H vancomycin dosing and monitoring per pharmacy OTHER As Directed levoFLOXacin 750 mg tab(s) (LEVAQUIN) 750 mg ORAL DAILY (6 AM) losartan 25 mg tab(s) (COZAAR) 25 mg ORAL BID metoprolol tartrate (short acting) 25 mg tab(s) (LOPRESSOR) 25 mg ORAL q 12 H atorvastatin 40 mg tab(s) (LIPITOR) 40 mg ORAL AT BEDTIME dextrose 15 gram/32 mL 15 g (TRUEPLUS) 15 g ORAL PRN Or glucagon 1 mg injection 1 mg INTRAMUSCULAR PRN Or dextrose 10% iv bolus 12.5 g INTRAVENOUS PRN insulin lispro injection (rapid acting) (ADMELOG) SUBCUTANEOUS w MEALS aspirin 81 mg chewable tab(s) 81 mg ORAL DAILY ticagrelor 90 mg tab(s) (BRILINTA) 90 mg ORAL BID levothyroxine 300 mcg (SYNTHROID) 300 mcg ORAL DAILY (6 AM) dabigatran etexilate 150 mg cap(s) (PRADAXA) 150 mg ORAL BID predniSONE 10 mg tab(s) (DELTASONE) 10 mg ORAL BID diazePAM 10 mg tab(s) (VALIUM) 10 mg ORAL BID PRN oxyCODONE IR 5 mg tab(s) (ROXICODONE) 5 mg ORAL q [address] 40 mg tab(s) (PROTONIX) 40 mg ORAL DAILY (6 AM) furosemide 20 mg tab(s) (LASIX) 20 mg ORAL DAILY furosemide 10 mg tab(s) (LASIX) 10 mg ORAL DAILY (1 PM) nicotine 21 mg/24 hr 1 Patch (NICODERM) 1 Patch TRANSDERMAL DAILY And nicotine -- REMOVE patch OTHER DAILY And nicotine - verify patch OTHER q 8 H miconazole 2 % 1 application topical powder (LOTRIMIN AF, DESENEX) 1 application TOPICAL BID vancomycin 1.5 g in D5W 250 mL (VANCOCIN) 1.5 g INTRAVENOUS q 12 HR ALLERGIES Allergen Reactions Diclofenac Hives Etanercept Swelling Folic Acid GI Upset dizzy/light headed Methotrexate GI Upset dizzy, light headed, diarrhea/vomiting Penicillins Hives Plaquenil [Hydroxyc* GI Upset dizzy/light headed Rivaroxaban GI Upset Sulfa (Sulfonamide * Hives Warfarin GI Upset Objective PHYSICAL EXAM: BP (!) 115/45 Pulse 69 Temp 36.5 ?C (97.7 ?F) (Oral) Resp 18 Ht 185.4 cm (6' 0.99 ) Wt (!) 212.7 kg (469 lb) SpO2 95% BMI 61.89 kg/m? General appearance: A/O male resting in bed. Respiratory: even and unlabored. Cardiovascular: pedal pulses palpable. Extremities: Heels and elbows intact. Integumentary: left side perianal abscess, red/pink, draining scant serosanguinous noted. Packed with iodoform. Coccyx intact. DATA Labs: WBC 13.9 Presenting wound information: Wound 08/17/22 0001 Other (comment) Perineum (Active) Assessments 08/18/2022 9:08 AM Wound Image Site Assessment [place];Red Joanne-Wound Assessment [place];Moist Shape round Wound Length (cm) 1 cm Wound Width (cm) 2.5 cm Wound Surface Area (cm2) 2.5 cm2 Wound Depth (cm) 3.5 cm Wound Volume (cm3) 8.75 cm3 Drainage Description Serosanguineous Drainage Amount Scant Odor None Treatments Cleansed Dressing Abdominal Dressing;Gauze (iodoform packing) Dressing Changed Changed Active Orders Date Order Priority Status Authorizing Provider 08/18/22 1237 DRESSING CARE (SPECIFY) ([place]) Routine Active Dillon M Pirro, GIS SOFTWARE DEVELOPER.ELECTRICIAN SECOND - Specify:: Lightly pack perineal wound with Iodoform, cover with gauze and ABD. Wash wound with soap and water or wound cleanser with each dressing change. - Specify:: apply antifungal powder to scrotum, buttock redness BID. (more content not included)... Normal [facility] Vancomycin random [Mass/Vol] on 08-18-2022 Vancomycin [Mass/Vol] 19.3 ug/mL Normal 10.0-20.0 [facility] Comment on above: Order Comment: Speci men Type: BLOOD SPECIMEN Ordering Facility: [facility] Address: [address] [place], [place] [id number] Result Comment: Refe rence ranges and high/low indicator flags are provided as general guidelines only. The treating physician must determine appropriate target levels/dosing based on the specific clinical situation. Performed By: #### 4 091-5 #### [facility] CLIA [id number] [address] [place] [address] [place] Bacteria Wnd Culton 08-17-19 23 Bacteria identified Cx Nom (Wound) ORGANISM ID: [id number] Rare Corynebacterium species Identified as Corynebacterium striatum group No further workup GRAM STAIN: No organisms seen Moderate Polymorphonuclear leukocytes Abnormal [facility] Comment on above: Performed By: #### 5 5454-3, 52076-1 #### [facility] CLIA [id number] [address] [place] [address] [place] Basic metabolic 2000 panelon 08-17-2022 Anion gap [Moles/Vol] 9 mmol/L Normal 9-18 [facility] Comment on above: Order Comment: Speci men Type: BLOOD SPECIMEN Ordering Facility: [facility] Address: [address] [id number] Performed By: #### 2 4321-2 #### [facility] CLIA [id number] [address] [place] Calcium [Mass/Vol] 8.7 mg/dL Normal 8.5-10.2 [facility] Comment on above: Order Comment: Speci men Type: BLOOD SPECIMEN Ordering Facility: [facility] Address: [address] [address] Performed By: #### 2 4321-2 #### [facility] CLIA [id number] [address] OF [facility] Chloride [Moles/Vol] 102 mmol/L Normal 97-105 [facility] Comment on above: Order Comment: Speci men Type: BLOOD SPECIMEN Ordering Facility: [facility] Address: [address] [place] [address] Performed By: #### 2 4321-2 #### [facility] CLIA [id number] [address] OF [place] CO2 [Moles/Vol] 28 mmol/L Normal 22-30 [facility] Comment on above: Order Comment: Speci men Type: BLOOD SPECIMEN Ordering Facility: [facility] Address: [address] [place] [address] Performed By: #### 2 4321-2 #### [facility] CLIA [id number] [address] OF [facility] Creatinine [Mass/Vol] 0.91 mg/dL Normal 0.73-1.22 [facility] Comment on above: Order Comment: Speci men Type: BLOOD SPECIMEN Ordering Facility: [facility] Address: [address] [place] [address] Performed By: #### 2 4321-2 #### [facility] CLIA [id number] [address] ESTIMATED GLOMERULAR FILTRATION RATE 101 mL/min/1.73m??? Normal >=60 [facility] Comment on above: Order Comment: Speci men Type: BLOOD SPECIMEN Ordering Facility: [facility] Address: [address] [place] [address] Result Comment: Ashley mated Glomerular Filtration Rate (eGFR) is calculated using the 2020 CKD-EPI creatinine equation. This equation utilizes serum creatinine, sex, and age as parameters. The creatinine assay has traceable calibration to isotope dilution-mass spectrometry. Refer to KDIGO guidelines for clinical interpretation. In patients with unstable renal function, e.g. those with acute kidney injury, the eGFR may not accurately reflect actual GFR. Performed By: #### 2 4321-2 #### [facility] CLIA [id number] [address] [place] [address] [place] Glucose [Mass/Vol] 158 mg/dL High 74-99 [facility] Comment on above: Order Comment: Sreekanth ludwig Type: BLOOD SPECIMEN Ordering Facility: [facility] Address: [address] [place] [address] Result Comment: The [place] Diabetes Association (ADA) provides guidance for cutoff values for fasting glucose and random glucose. The ADA defines fasting as no caloric intake for at least 8 hours. Fasting plasma glucose results between 100 to 125 mg/dL indicate increased risk for diabetes (prediabetes). Fasting plasma glucose results greater than or equal to 126 mg/dL meet the criteria for diagnosis of diabetes. In the absence of unequivocal hyperglycemia, results should be confirmed by repeat testing. In a patient with classic symptoms of hyperglycemia or hyperglycemic crisis, random plasma glucose results greater than or equal to 200 mg/dL meet the criteria for diagnosis of diabetes. Reference: Standards of Medical Care in Diabetes 2016, [place] Diabetes Association. Diabetes Care. 2016.39(Suppl 1). Performed By: #### 2 4321-2 #### [facility] CLIA [id number] [address] [place] [address] [place] Potassium [Moles/Vol] 4.1 mmol/L Normal 3.7-5.1 [facility] Comment on above: Order Comment: Sreekanth ludwig Type: BLOOD SPECIMEN Ordering Facility: [facility] Address: [address] [address] Performed By: #### 2 4321-2 #### [facility] CLIA [id number] [address] [place] [address] [place] Sodium [Moles/Vol] 139 mmol/L Normal 136-144 [facility] Comment on above: Order Comment: Sreekanth ludwig Type: BLOOD SPECIMEN Ordering Facility: [facility] Address: [address] [place] [address] Performed By: #### 2 4321-2 #### [facility] CLIA [id number] [address] [place] [facility] Urea nitrogen [Mass/Vol] 10 mg/dL Normal 9-24 [facility] Comment on above: Order Comment: Speci men Type: BLOOD SPECIMEN Ordering Facility: [facility] Address: [address] [place] [address] Performed By: #### 2 4321-2 #### [facility] CLIA [id number] [address] STATES OF [facility] CBC panel Auto (Bld)on 08-17 Erythrocyte distribution width (RBC) [Ratio] 18.3 % High 11.5-15.0 [facility] Comment on above: Order Comment: Speci men Type: BLOOD SPECIMEN Ordering Facility: [facility] Address: [address] [place] [address] Performed By: #### 5 8410-2 #### [facility] CLIA [id number] [address] Hematocrit (Bld) [Volume fraction] 33.4 % Low 39.0-51.0 [facility] Comment on above: Order Comment: Speci men Type: BLOOD SPECIMEN Ordering Facility: [facility] Address: [address] [place] [address] Performed By: #### 5 8410-2 #### [facility] CLIA [id number] [address] STATES OF [facility] Hemoglobin (Bld) [Mass/Vol] 9.1 g/dL Low 13.0-17.0 [facility] Comment on above: Order Comment: Speci men Type: BLOOD SPECIMEN Ordering Facility: [facility] Address: [address] [place] [address] Performed By: #### 5 8410-2 #### [facility] CLIA [id number] [address] MCH (RBC) [Entitic mass] 21.0 pg Low 26.0-34.0 [facility] Comment on above: Order Comment: Speci men Type: BLOOD SPECIMEN Ordering Facility: [facility] Address: [address] [address] Performed By: #### 5 8410-2 #### [facility] CLIA [id number] [address] MCHC (RBC) [Mass/Vol] 27.2 g/dL Low 30.5-36.0 [facility] Comment on above: Order Comment: Speci men Type: BLOOD SPECIMEN Ordering Facility: [facility] Address: [address] [address] Performed By: #### 5 8410-2 #### [facility] CLIA [id number] [address] MCV (RBC) [Entitic vol] 77.1 fL Low 80.0-100.0 [facility] Comment on above: Order Comment: Speci men Type: BLOOD SPECIMEN Ordering Facility: [facility] Address: [address] [place] [address] Performed By: #### 5 8410-2 #### [facility] CLIA [id number] [address] Nucleated RBC (Bld) [#/Vol] 10*3/uL Normal <0.01 [facility] Comment on above: Order Comment: Speci men Type: BLOOD SPECIMEN Ordering Facility: [facility] Address: [address] [place] [address] Performed By: #### 5 8410-2 #### [facility] CLIA [id number] [address] Platelet mean volume (Bld) [Entitic vol] 9.3 fL Normal 9.0-12.7 [facility] Comment on above: Order Comment: Speci men Type: BLOOD SPECIMEN Ordering Facility: [facility] Address: [address] [place] [address] Performed By: #### 5 8410-2 #### [facility] CLIA [id number] [address] [place] Platelets (Bld) [#/Vol] 340 10*3/uL Normal 150-400 [facility] Comment on above: Order Comment: Speci men Type: BLOOD SPECIMEN Ordering Facility: [facility] Address: [address] [address] Performed By: #### 5 8410-2 #### [facility] CLIA [id number] [address] RBC (Bld) [#/Vol] 4.33 10*6/uL Normal 4.20-6.00 [facility] Comment on above: Order Comment: Speci men Type: BLOOD SPECIMEN Ordering Facility: [facility] Address: [address] [place] [address] Performed By: #### 5 8410-2 #### [facility] CLIA [id number] [address] OF [facility] WBC (Bld) [#/Vol] 12.69 10*3/uL High 3.70-11.00 [facility] Comment on above: Order Comment: Speci men Type: BLOOD SPECIMEN Ordering Facility: [facility] Address: [address] [place] [address] Performed By: #### 5 8410-2 #### [facility] CLIA [id number] [address] [place] [address] CONSULTon 08-17-2022 CONSULT HNO ID: [id number] Author: Letha Milan DO Service: General Surgery Author Type: Resident Type: Consults Filed: 08/16/2022 10:23 PM Note Text: -------- Attestation signed by Cayla Arias MD at 08/17/2022 4:30 PM Attending Note I discussed with resident. The patient was not examined by the attending. I reviewed the resident's note. I agree with the resident's assessment and plan unless otherwise noted. Signature: Cayla Arias MD Date: 08/17/2022. Time: 4:30 PM -------- CONSULT: Emergency General Surgery Service SERVICE DATE: 08/16/2022 SERVICE TIME: 10:01 PM REASON FOR CONSULT: perianal abscess REQUESTING PHYSICIAN: emergency department Subjective 52 year old male h/o morbid obesity, anxiety/depression, HCL, HTN, prior MS s/p stent placement on dual antiplatelets, RA on steroids, DM on insulin, COPD on 4L home O2, prior Grecia's gangrene requiring debridement multiple years ago originally presented to outside ED earlier today with perianal drainage that he first noticed earlier this morning. Patient states that sx started three days ago with perianal pain that he attributed to chafing as he has been very active lately attempting to lose weight. He saw PCP at that time who advised him to keep the area clean and dry. Pain continued to worsen until this morning the area opened and started to drain purulent material. Given his prior h/o grecia's, he was concerned and wanted to be seen for further workup and evaluation. At outside, ED labs were significant for WBC 13.6, hemoglobin 9.7, lactate 4.8. CTAP with perianal abscess with small pocket of air. He was subsequently transferred here for further workup and evaluation. At bedside, he is resting comfortably in no acute distress. Continues to have pain and drainage from perianal wound. He was last due for a colonoscopy 2-3 years ago. No family h/o IBD. Denies any other sx including fevers, chills, nausea, vomiting, CP, SOB. No other associated sx or modifying factors at this time. FUNCTIONAL STATUS: Independent PAST MEDICAL HISTORY Diagnosis Date Anxiety Colon polyps Constipation Depression Gastritis Hip disease Hip pain Hypercholesteremia Hypoglycemic syndrome Nausea Overactive bladder Panic attacks Rheumatoid arthritis (HCC) Stomach ulcer PAST SURGICAL HISTORY Procedure Laterality Date COLONOSCOP W/ OR W/O [facility] SPEC 03/05/16 Colonoscopy [facility] EGD W/O OR W/BRUSH/WASH 03/05/16 EGD [facility] NONE FAMILY HISTORY Problem Relation Age of Onset Kidney Disease Father Breast Cancer Mother other (thyroid issues) Sister Social History Tobacco Use Smoking status: Every Day Packs/day: 1.50 Types: Cigarettes Smokeless tobacco: Former Types: Chew Substance Use Topics Alcohol use: No Drug use: No (Not in a hospital admission) Current Facility-Administered Medications Medication Dose Route Frequency lactated ringers iv infusion 150 mL/hr INTRAVENOUS CONTINUOUS NaCl 0.9% 1,000 mL iv bolus 1,000 mL INTRAVENOUS ONCE NaCl 0.9% iv infusion 125 mL/hr INTRAVENOUS CONTINUOUS Allergies As of Date: 08/16/2022 Allergen Noted Reaction DICLOFENAC 07/12/2018 Hives ETANERCEPT 04/14/2017 Swelling FOLIC ACID 10/06/2016 GI Upset METHOTREXATE 10/06/2016 GI Upset PENICILLINS 04/14/2017 Hives PLAQUENIL [HYDROXYCHLOROQUINE SUL*10/06/2016 GI Upset RIVAROXABAN 04/14/2017 GI Upset SULFA (SULFONAMIDE ANTIBIOTICS) 08/16/2022 Hives WARFARIN 04/14/2017 GI Upset Fully Assessed 08/16/2022 COMPLETE REVIEW OF SYSTEMS: GENERAL: No weight loss, malaise or fevers. HEENT: Negative for frequent or significant headaches, No changes in hearing or vision, no nose bleeds or other nasal problems. NECK: Negative for lumps, goiter, pain and significant neck swelling. RESPIRATORY: Negative for cough, hemoptysis, wheezing, COPD, dyspnea or shortness of breath. CARDIOVASCULAR: Negative for chest pain, leg swelling, hypertension, CHF or palpitations. GI: + perianal pain/drainage. No nausea, vomiting, or diarrhea. MUSCULOSKELETAL: Negative for joint pain or swelling, back pain or muscle pain. SKIN: Negative for lesions, rash, and itching. PSYCH: Negative for sleep disturbance, mood disorder and recent psychosocial stressors. NEURO: No history of headaches, syncope, paralysis, seizures or tremors. Objective PHYSICAL EXAM: BP 107/82 Pulse 92 Temp (Src) 98.1 (Oral) Resp 20 Ht 6' 1 (1.85m) Wt 469 lb (212.7kg) SpO2 97% BMI 61.89 kg/(m2). O2 Therapy: Nasal Cannula, Liters: 4 GENERAL: Alert. No distress. Resting comfortably. NEURO: AANDOx3. No focal neurologic deficits. Sensation grossly intact. HEENT: Normocephalic. Atraumatic. EOMI. LUNGS: Unlabored breathing on 4L O2 (baseline). Equal excursion bilaterally. CAR (more content not included)... Normal [facility] CONSULT PROGon 08-17-2022 CONSULT PROG HNO ID: [id number] Author: Fani Sanderson APRN.ELECTRICIAN SECOND Service: General Surgery Author Type: Nurse Practitioner Type: Consult Progress Note Filed: 08/17/2022 5:16 PM Note Text: -------- Summary: sign off -------- Emergency General Surgery Progress Note SERVICE DATE: August 17, 2022 Service Time: 0640 Emergency General Surgery Service Pager: For questions or concerns Mon-Fri 6a-5p please page [phone]. After 5pm and on Weekends and Holidays, please page [phone] if in ICU or [phone] if on RNF. SUBJECTIVE: Mr. Granados reports pain and tenderness with dressing change. Expresses frustration with hospital day yesterday and would like to go home. Tolerating diet DIET CARBOHYDRATE CONTROLLED OBJECTIVE: Vitals: Temp (24hrs), Av.4 ?C (97.6 ?F), Min:36 ?C (96.8 ?F), Max:36.7 ?C (98.1 ?F) BP 120/71 Pulse 87 Temp 36.4 ?C (97.5 ?F) (Oral) Resp 20 Ht 185.4 cm (6' 0.99 ) Wt (!) 212.7 kg (469 lb) SpO2 93% BMI 61.89 kg/m? O2 Therapy: Nasal Cannula IANDO: Date 08/16/22 07 - 08/17/22 0659 08/17/22 0700 - 08/18/22 0659 Shift [id number] 9752-7709 1785-4754 24 Hour Total 2868-0977 0005-2284 3083-0098 24 Hour Total INTAKE PO 600 600 PO 600 600 IV 7678 699 8985 Volume (mL) (NaCl 0.9% 1,000 mL iv bolus) 1000 1000 Volume (mL) (vancomycin 2 g in D5W 500 mL (VANCOCIN)) 500 500 Volume (mL) (clindamycin iv piggyback 900 mg in D5W 50 mL (CLEOCIN)) 50 50 Shift Total 1000 1150 2150 OUTPUT Urine 525 525 Void (ml) 525 525 # of BMs Number of BMs 0 x 0 x Shift Total 525 525 Weight (kg) 212.7 212.7 212.7 212.7 212.7 212.7 212.7 MEDICATIONS Current Facility-Administered Medications Medication Dose Route Frequency NaCl 0.9% iv flush bag 20 mL INTRAVENOUS PRN clindamycin iv piggyback 900 mg in D5W 50 mL (CLEOCIN) 900 mg INTRAVENOUS q 8 H vancomycin dosing and monitoring per pharmacy OTHER As Directed levoFLOXacin 750 mg tab(s) (LEVAQUIN) 750 mg ORAL DAILY (6 AM) losartan 25 mg tab(s) (COZAAR) 25 mg ORAL BID metoprolol tartrate (short acting) 25 mg tab(s) (LOPRESSOR) 25 mg ORAL q 12 H atorvastatin 40 mg tab(s) (LIPITOR) 40 mg ORAL AT BEDTIME dextrose 15 gram/32 mL 15 g (TRUEPLUS) 15 g ORAL PRN Or glucagon 1 mg injection 1 mg INTRAMUSCULAR PRN Or dextrose 10% iv bolus 12.5 g INTRAVENOUS PRN insulin lispro injection (rapid acting) (ADMELOG) SUBCUTANEOUS w MEALS aspirin 81 mg chewable tab(s) 81 mg ORAL DAILY ticagrelor 90 mg tab(s) (BRILINTA) 90 mg ORAL BID levothyroxine 300 mcg (SYNTHROID) 300 mcg ORAL DAILY (6 AM) dabigatran etexilate 150 mg cap(s) (PRADAXA) 150 mg ORAL BID predniSONE 10 mg tab(s) (DELTASONE) 10 mg ORAL BID diazePAM 10 mg tab(s) (VALIUM) 10 mg ORAL BID PRN oxyCODONE IR 5 mg tab(s) (ROXICODONE) 5 mg ORAL q [address] 40 mg tab(s) (PROTONIX) 40 mg ORAL DAILY (6 AM) furosemide 20 mg tab(s) (LASIX) 20 mg ORAL DAILY furosemide 10 mg tab(s) (LASIX) 10 mg ORAL DAILY (1 PM) vancomycin 2 g in D5W 500 mL (VANCOCIN) 0.015 g/kg/dose INTRAVENOUS q 12 HR Labs: Recent Labs 08/17/22 0351 08/16/22203408/16/222010 NA 139 -- 139 K 4.1 -- 3.7 CHLOR 102 -- 101 CO2 28 -- 29 BUN 10 -- 10 CREAT 0.91 -- 0.91 GLUC 158* -- 90 ANION 9 -- 9 CA 8.7 -- 8.4* WBC 12.69* -- 12.94* HB 9.1* -- 8.7* HCT 33.4* -- 32.3* PLT 340 -- 347 LACT -- 4.7* -- Physical Exam: GENERAL: No distress, Alert NEURO: AANDOx3, CN II-XII grossly intact HEENT: normocephalic, atraumatic LUNGS: Unlabored breathing at rest, equal chest rise bilaterally, using O2 per baseline CARDIAC: Regular rate, warm and well perfused distal extremities ABDOMEN: Morbidly obese, soft, non-tender, non-distended EXTREMITIES: PINA, No deformities, No edema SKIN: Skin color, texture, turgor normal, No rashes or lesions WOUND: right perianal wound with packing-moderate amount seropurulent drainage and repacked with tape guaze, no fluctuance or induration ASSESSMENT AND PLAN: Assessment Active Hospital Problems Diagnosis Date Noted Perianal abscess 08/16/2022 Assessment: 52 year old male h/o morbid obesity, anxiety/depression, HCL, HTN, prior MS s/p stent placement on dual antiplatelets, RA on steroids, DM on insulin, COPD on 4L home O2, prior Grecia's gangrene requiring debridement multiple years ago originally presented to outside ED with perianal drainage that he first noticed earlier that morning. Plan: - medical management per primary team - antibiotics per primary team - dressing change daily and prn if soiled - keep area clean and dry - VTE ppx: lovenox, IPCs, encourage OOB and ambulation - no acute surgical intervention at this time Follow up needs: may follow up with PCP as wishes or surgery clinic (Dr. Bhatt) as needed EGS will sign off at this time SIGNATURE: Fani Monaco (more content not included)... Normal [facility] CONSULT PROG HNO ID: [id number] Author: Zainab Pham [facility] Service: Pharmacy Author Type: Pharmacist Type: Consult Progress Note Filed: 08/16/2022 11:50 PM Note Text: PHARMACY VANCOMYCIN DOSING NOTE Patient Name: Cayla Granados Admission Date: 08/16/2022 Date of Consult: 08/16/2022 Time of Consult: 11:49 PM Indication: Skin/Soft tissue infection Goal Range: 10-20 mcg/mL RECOMMENDATIONS/PLAN: Pharmacy consulted for vancomycin dosing for Cayla Granados, a 52 year old, male who is being treated with vancomycin. 1. Patient is currently ordered Vancomycin 2 g q12h. Today is day One of therapy. First dose of therapy scheduled to start now. 2. No vancomycin level has been drawn for this dosing regimen. 3. The present dose of vancomycin is the recommended dosage for this patient at this time. Continue therapy as prescribed. 4. The next vancomycin level has been ordered for 08-18-2022 @ 1100 prior 3rd dose due to concern for accumulation (Completed) We will follow patient renal function, vancomycin levels and doses with you during the course of therapy. Additional recommendations will appear in follow up notes. If you have any questions[place] [phone]. Age: [age] year old Allergies: ALLERGIES Allergen Reactions Diclofenac Hives Etanercept Swelling Folic Acid GI Upset dizzy/light headed Methotrexate GI Upset dizzy, light headed, diarrhea/vomiting Penicillins Hives Plaquenil [Hydroxyc* GI Upset dizzy/light headed Rivaroxaban GI Upset Sulfa (Sulfonamide * Hives Warfarin GI Upset Last 3 Encounter Wt Readings: Date: Wt: 08/16/2022 212.7 kg (469 lb) 07/12/2018 195 kg (430 lb) 07/05/2018 195 kg (430 lb) Last 1 Encounter Ht Readings: Date: Ht: 08/16/2022 185.4 cm (6' 1 ) CrCl: 176.6 mL/min Temp (24hrs), Av.7 ?C (98.1 ?F), Min:36.7 ?C (98.1 ?F), Max:36.7 ?C (98.1 ?F) - Current Temp: 36.7 ?C (98.1 ?F) Labs BUN (mg/dL) Date Value 08/16/2022 10 05/04/2018 9 Creatinine (mg/dL) Date Value 08/16/2022 0.91 05/04/2018 1.03 WBC (k/uL) Date Value 08/16/2022 12.94 (H) 05/04/2018 10.83 Vancomycin Levels: No results found for: CONRAD Pham [facility] ED NOTEon 08-17-2022 ED NOTE HNO ID: [id number] Author: Nevaeh Styles RN Service: Emergency Medicine Author Type: Registered Nurse Type: ED Notes Filed: 08/16/2022 11:06 PM Note Text: Report called to 4200 RN [facility] ED NOTE HNO ID: [id number] Author: Nevaeh Styles RN Service: Emergency Medicine Author Type: Registered Nurse Type: ED Notes Filed: 08/16/2022 10:19 PM Note Text: Dr. Hernández at bedside [facility] HISTORY PHYSICALon 3 HISTORY PHYSICAL HNO ID: [id number] Author: Junior Dietrich MD Service: Hospital Medicine Author Type: Resident Type: HANDP Filed: 08/17/2022 6:11 AM Note Text: -------- Attestation signed by Chance Abdalla MD at 08/17/2022 9:00 PM [facility] MEDICINE SERVICE ATTENDING ATTESTATION: I saw and evaluated the patient on rounds on 08/17/22. Discussed case with the medicine team and agree with resident's findings and plan as documented in the resident's note. Chance Abdalla MD -------- HOUSE MEDICINE SERVICE HISTORY AND PHYSICAL SERVICE DATE: August 16, 2022 SERVICE TIME: 10:27 PM NIGHT AND WEEKEND COVERAGE: From 6 AM to 5 PM: You may reach the House Medicine corporate intern currently assigned to this patient by finding their pager number on the treatment team (they will be assigned as the corporate intern or resident). It is the last four digits in the phone number beginning with ([phone]). We encourage the use of [employer] Secure Chat. PCP: Dillon Norris DO Admitting Attending: No admitting provider for patient encounter. SUBJECTIVE Chief Complaint: Joanne-anal abscess HPI: This is a 49-year-old male with past medical history listed below presents to the emergency department complaints of perianal abscess. Of note patient was in an outside facility where he was worked up for perianal abscess/necrotizing fasciitis/Grecia's gangrene. Work-up was negative for necrotizing fasciitis and Grecia's gangrene, currently being treated as perianal abscess. States he had onset of pain around his perianal region/ swelling and redness Thursday this week, which gradually progressed. He had sudden onset of drainage around the perianal region, which was yellowish to red in color, Thursday. Presented to [facility] for the management of the same. Denies fever. States has had prior episodes of perianal abscess. Past medical history: Hypertension on losartan 25 Mg twice daily, metoprolol tartrate 25 Mg twice daily Hyperlipidemia on atorvastatin 40 Mg tablets once daily Diabetes on Trulicity 0.75 Mg per 0.5 mL, 0.5 mL once weekly(however states has not been taking the same as he forgot to refrigerate it and has been trying to get a refill approved by his pharmacy), glipizide ER 2.5 Mg tablets once daily History of atherosclerotic heart disease, history of stenting to the RCA in March 23, 2021, I see a recent prescription of aspirin 81 Mg once daily and Brilinta 90 Mg twice daily Chronic venous congestion on bumetanide 1 Mg tablet twice daily as needed, furosemide 20 Mg in the morning and 10 Mg in the afternoon Morbid obesity Hypothyroidism on levothyroxine 100 MCG tablets 300 MCG p.o. daily Obstructive sleep apnea does not use CPAP Tobacco use Anxiety disorder History of Grecia's gangrene History of cellulitis History of perianal abscess Deep vein thrombosis on dabigatran 150 Mg twice daily Colon polyps Chronic steroid use, his last prescription of steroids was July 2022, for rheumatoid arthritis, prescription dispensed 07/23/2022 25-day supply, states was started on 60 Mg per day regimen, currently is on 10 Mg twice daily regimen Chronic prescription of benzodiazepines, his last prescription of benzodiazepines was 07/23/2022 of diazepam 10 Mg tablets of which 120 tablets were given to him. Patient was also prescribed oxycodone 5 Mg tablets which was a prescription for 7 days. States uses diazepam and oxycodone twice daily as needed only has been off it for a while now GERD on omeprazole 40 Mg once daily Review of Systems: PAIN ASSESSMENT: Currently in pain GENERAL: No weight loss, malaise or fevers HEENT: Negative for frequent or significant headaches, No changes in hearing or vision, no nose bleeds or other nasal problems NECK: Negative for lumps, goiter, pain and significant neck swelling RESPIRATORY: Shortness of breath CARDIOVASCULAR: Negative for chest pain, palpitation. History of chronic leg swelling. GI: No nausea, vomiting, or diarrhea MUSCULOSKELETAL: Negative for joint pain or swelling, back pain or muscle pain SKIN: See HPI ENDOCRINE: Negative for cold or heat intolerance, polyuria, polydipsia and goiter NEURO: No history of headaches, syncope, paralysis, seizures or tremors PAST MEDICAL HISTORY Diagnosis Date Anxiety Colon polyps Constipation Depression Gastritis Hip disease Hip pain Hypercholesteremia Hypoglycemic syndrome Nausea Overactive bladder Panic attacks Rheumatoid arthritis (HCC) Stomach ulcer PAST SURGICAL HISTORY Procedure Laterality Date COLONOSCOP W/ OR W/O [facility] SPEC 03/05/16 Colonoscopy [facility] EGD W/O OR W/BRUSH/WASH 03/05/16 EGD mac [facility] NONE FAMILY HISTORY Problem Relation Age of Onset Kidney Disease Father Breast Cancer Mother other (thyroid issues) (more content not included)... Normal [facility] STREPTOCOCCUS PNEUMONIAE AGo n 08-17-2022 STREPTOCOCCUS PNEUMONIAE AG STREP PNEUMO AG RESULT: Negative for Streptococcus pneumoniae antigen. Presumptive negative for pneumococcal pneumonia, suggesting no current or recent pneumococcal infection. Infection due to S.pneumoniae cannot be ruled out since the antigen present in the sample may be below the detection limit of the test. Normal [facility] Comment on above: Performed By: #### 5 5454-3, 94205-2 #### [facility] CLIA [id number] [address] Urinalysis complete panel (U )on 08-17-2022 Bilirubin Ql (U) Negative Normal Negative [facility] Comment on above: Order Comment: Speci men Type: URINE SPECIMEN Ordering Facility: [facility] Address: [address] [place] [address] Performed By: #### 2 4356-8 #### [facility] CLIA [id number] [address] Clarity (Unsp spec) Clear Normal Clear [facility] Comment on above: Order Comment: Speci men Type: URINE SPECIMEN Ordering Facility: [facility] Address: [address] [place] [address] Performed By: #### 2 4356-8 #### [facility] CLIA [id number] [address] Color (U) Light Yellow Normal yellow [facility] Comment on above: Order Comment: Speci men Type: URINE SPECIMEN Ordering Facility: [facility] Address: [address] [place] [address] Performed By: #### 2 4356-8 #### [facility] CLIA [id number] [address] Glucose Test strip (U) [Mass/Vol] Negative Normal Trace, Negative [facility] Comment on above: Order Comment: Speci men Type: URINE SPECIMEN Ordering Facility: [facility] Address: [address] [address] Performed By: #### 2 4356-8 #### [facility] CLIA [id number] [address] Hemoglobin Ql (U) 1+ Abnormal Negative, Trace [facility] Comment on above: Order Comment: Speci men Type: URINE SPECIMEN Ordering Facility: [facility] Address: [address] [place] [address] Performed By: #### 2 4356-8 #### [facility] CLIA [id number] [address] Ketones Ql (U) Negative Normal Negative, Trace [facility] Comment on above: Order Comment: Speci men Type: URINE SPECIMEN Ordering Facility: [facility] Address: [address] [place] [address] Performed By: #### 2 4356-8 #### [facility] CLIA [id number] [address] Leukocyte esterase Test strip Ql (U) Negative Normal Negative, 25 Leidy/mL [facility] Comment on above: Order Comment: Speci men Type: URINE SPECIMEN Ordering Facility: [facility] Address: [address] [place] [address] Performed By: #### 2 4356-8 #### [facility] CLIA [id number] [address] Nitrite Ql (U) Negative Normal Negative [facility] Comment on above: Order Comment: Speci men Type: URINE SPECIMEN Ordering Facility: [facility] Address: [address] [place] [address] Performed By: #### 2 4356-8 #### [facility] CLIA [id number] [address] [place] pH (U) 6.0 [pH] Normal 5.0-8.0 [facility] Comment on above: Order Comment: Speci men Type: URINE SPECIMEN Ordering Facility: [facility] Address: [address] [place] [address] Performed By: #### 2 4356-8 #### [facility] CLIA [id number] [address] Protein (U) [Mass/Vol] Trace Normal Trace , Negative [facility] Comment on above: Order Comment: Speci men Type: URINE SPECIMEN Ordering Facility: [facility] Address: [address] [place] [address] Performed By: #### 2 4356-8 #### [facility] CLIA [id number] [address] RBC LM.HPF (Urine sed) [#/Area] 3-5 /HPF Abnormal 0-3 /HPF [facility] Comment on above: Order Comment: Speci men Type: URINE SPECIMEN Ordering Facility: [facility] Address: [address] [place] [address] Performed By: #### 2 4356-8 #### [facility] CLIA [id number] [address] Specific gravity (U) [Rel density] 1.024 Normal 1.005-1.030 [facility] Comment on above: Order Comment: Speci men Type: URINE SPECIMEN Ordering Facility: [facility] Address: [address] [place] [address] Performed By: #### 2 4356-8 #### [facility] CLIA [id number] [address] [place] [address] Urobilinogen Ql (U) Normal Normal Negative [facility] Comment on above: Order Comment: Speci men Type: URINE SPECIMEN Ordering Facility: [facility] Address: [address] [place] [address] Performed By: #### 2 4356-8 #### [facility] CLIA [id number] [address] WBC LM.HPF (Urine sed) [#/Area] 0-5 /HPF Normal 0-5 /HPF [facility] Comment on above: Order Comment: Speci men Type: URINE SPECIMEN Ordering Facility: [facility] Address: [address] [place] [address] Performed By: #### 2 4356-8 #### [facility] CLIA [id number] [address] [place] [address] [place] Basic metabolic 2000 panelon 08-16-2022 Anion gap [Moles/Vol] 9 mmol/L Normal 9-18 [facility] Comment on above: Order Comment: Speci men Type: BLOOD SPECIMEN [facility] Facility[facility] Address: [address] [place] [address], [place] [address] Performed By: #### 5 8410-2 #### [facility] CLIA [id number] [address] [place] [address] [place] Calcium [Mass/Vol] 8.4 mg/dL Low 8.5-10.2 [facility] Comment on above: Order Comment: Speci men Type: BLOOD SPECIMEN [facility]ing Facility[facility] Address: [address] [place] [address], [place] [address] Performed By: #### 5 8410-2 #### [facility] CLIA [id number] [address] [place] [address] [place] Chloride [Moles/Vol] 101 mmol/L Normal 97-105 [facility] Comment on above: Order Comment: Speci men Type: BLOOD SPECIMEN [facility]ing Facility: [facility] Address: [address] [place] [address], [place] [address] Performed By: #### 5 8410-2 #### [facility] CLIA [id number] [address] [place] [address] [place] CO2 [Moles/Vol] 29 mmol/L Normal 22-30 [facility] Comment on above: Order Comment: Speci men Type: BLOOD SPECIMEN [facility]ing Facility[facility] Address: [address] [place] [address], [place] [id number] Performed By: #### 5 8410-2 #### [facility] CLIA [id number] [address] [place] [address] [place] Creatinine [Mass/Vol] 0.91 mg/dL Normal 0.73-1.22 [facility] Comment on above: Order Comment: Sreekanth ludwig Type: BLOOD SPECIMEN [facility] Facility[facility] Address: [address] [place] [address], [place] [address] Performed By: #### 5 8410-2 #### [facility] CLIA [id number] [address] [place] [address] [facility] ESTIMATED GLOMERULAR FILTRATION RATE 101 mL/min/1.73m??? Normal >=60 [facility] Comment on above: Order Comment: Sreekanth ludwig Type: BLOOD SPECIMEN Ordering Facility: [facility] Address: [address] [place] [address], [place] [address] Result Comment: Ashley mated Glomerular Filtration Rate (eGFR) is calculated using the 2020 CKD-EPI creatinine equation. This equation utilizes serum creatinine, sex, and age as parameters. The creatinine assay has traceable calibration to isotope dilution-mass spectrometry. Refer to KDIGO guidelines for clinical interpretation. In patients with unstable renal function, e.g. those with acute kidney injury, the eGFR may not accurately reflect actual GFR. Performed By: #### 5 8410-2 #### [facility] CLIA [id number] [address] [id number] [place] Glucose [Mass/Vol] 90 mg/dL Normal 74-99 [facility] Comment on above: Order Comment: Sreekanth ludwig Type: BLOOD SPECIMEN Ordering Facility: [facility] Address: [address] [place] [address], [place] [address] Result Comment: The [place] Diabetes Association (ADA) provides guidance for cutoff values for fasting glucose and random glucose. The ADA defines fasting as no caloric intake for at least 8 hours. Fasting plasma glucose results between 100 to 125 mg/dL indicate increased risk for diabetes (prediabetes). Fasting plasma glucose results greater than or equal to 126 mg/dL meet the criteria for diagnosis of diabetes. In the absence of unequivocal hyperglycemia, results should be confirmed by repeat testing. In a patient with classic symptoms of hyperglycemia or hyperglycemic crisis, random plasma glucose results greater than or equal to 200 mg/dL meet the criteria for diagnosis of diabetes. Reference: Standards of Medical Care in Diabetes 2016, [place] [employer] Association. Diabetes Care. 2016.39(Suppl 1). Performed By: #### 5 8410-2 #### [facility] CLIA [id number] [address] [place] [address] [place] Potassium [Moles/Vol] 3.7 mmol/L Normal 3.7-5.1 [facility] Comment on above: Order Comment: Speci men Type: BLOOD SPECIMEN [facility] Facility[facility] Address: [address] [place] [address], [place] [address] Performed By: #### 5 8410-2 #### [facility] CLIA [id number] [address] [place] [address] [place] Sodium [Moles/Vol] 139 mmol/L Normal 136-144 [facility] Comment on above: Order Comment: Sreekanth ludwig Type: BLOOD SPECIMEN Ordering Facility: [facility] Address: [address] [place] [address], [place] [address] Performed By: #### 5 8410-2 #### [facility] CLIA [id number] [address] [place] [address] [place] Urea nitrogen [Mass/Vol] 10 mg/dL Normal 9-24 [facility] Comment on above: Order Comment: Sreekanth ludwig Type: BLOOD SPECIMEN [facility] Facility[facility] [facility] Address: [address] [place] [address], [place] [address] Performed By: #### 5 8410-2 #### [facility] CLIA [id number] [address] [place] [address] [place] CBC panel Auto (Bld)on 08-16 Erythrocyte distribution width (RBC) [Ratio] 18.5 % High 11.5-15.0 [facility] Comment on above: Order Comment: Sreekanth ludwig Type: BLOOD SPECIMEN Ordering Facility: [facility] Address: [address] [place] [address] Performed By: #### 5 5454-3, 81549-4 #### [facility] CLIA [id number] [address] [place] [address] [place] Hematocrit (Bld) [Volume fraction] 32.3 % Low 39.0-51.0 [facility] Comment on above: Order Comment: Speci men Type: BLOOD SPECIMEN Ordering Facility: [facility] Address: [address] [place] [address] Performed By: #### 5 5454-3, 53719-5 #### [facility] CLIA [id number] [address] OF [facility] Hemoglobin (Bld) [Mass/Vol] 8.7 g/dL Low 13.0-17.0 [facility] Comment on above: Order Comment: Speci men Type: BLOOD SPECIMEN Ordering Facility: [facility] Address: [address] [place] [address] Performed By: #### 5 5454-3, 48488-9 #### [facility] CLIA [id number] [address] STATES OF [facility] MCH (RBC) [Entitic mass] 20.8 pg Low 26.0-34.0 [facility] Comment on above: Order Comment: Speci men Type: BLOOD SPECIMEN Ordering Facility: [facility] Address: [address] [place] [address] Performed By: #### 5 5454-3, 22455-0 #### [facility] CLIA [id number] [address] [place] [address] OF [facility] MCHC (RBC) [Mass/Vol] 26.9 g/dL Low 30.5-36.0 [facility] Comment on above: Order Comment: Speci men Type: BLOOD SPECIMEN Ordering Facility: [facility] Address: [address] [place] [address] Performed By: #### 5 5454-3, 27818-1 #### [facility] CLIA [id number] [address] MCV (RBC) [Entitic vol] 77.1 fL Low 80.0-100.0 [facility] Comment on above: Order Comment: Speci men Type: BLOOD SPECIMEN Ordering Facility: [facility] Address: [address] [address] Performed By: #### 5 5454-3, 24949-8 #### [facility] CLIA [id number] [address] Nucleated RBC (Bld) [#/Vol] 10*3/uL Normal <0.01 [facility] Comment on above: Order Comment: Speci men Type: BLOOD SPECIMEN Ordering Facility: [facility] Address: [address] [address] Performed By: #### 5 5454-3, 35642-3 #### [facility] CLIA [id number] [address] [place] Platelet mean volume (Bld) [Entitic vol] 9.5 fL Normal 9.0-12.7 [facility] Comment on above: Order Comment: Speci men Type: BLOOD SPECIMEN Ordering Facility: [facility] Address: [address] [address] Performed By: #### 5 5454-3, 81836-9 #### [facility] CLIA [id number] [address] Platelets (Bld) [#/Vol] 347 10*3/uL Normal 150-400 [facility] Comment on above: Order Comment: Speci men Type: BLOOD SPECIMEN Ordering Facility: [facility] Address: [address] [address] Performed By: #### 5 5454-3, 70477-2 #### [facility] CLIA [id number] [address] [place] RBC (Bld) [#/Vol] 4.19 10*6/uL Low 4.20-6.00 [facility] Comment on above: Order Comment: Speci men Type: BLOOD SPECIMEN Ordering Facility: [facility] Address: [address] [address] Performed By: #### 5 5454-3, 55338-6 #### [facility] CLIA [id number] [address] [place] WBC (Bld) [#/Vol] 12.94 10*3/uL High 3.70-11.00 [facility] Comment on above: Order Comment: Speci men Type: BLOOD SPECIMEN Ordering Facility: [facility] Address: [address] [place] [address] Performed By: #### 5 5454-3, 97658-9 #### [facility] CLIA [id number] [address] ED NOTEon 08-16-2022 ED NOTE HNO ID: [id number] Author: Mel Clement RN Service: Emergency Medicine Author Type: Registered Nurse Type: ED Notes Filed: 08/16/2022 9:19 PM Note Text: Provider at bedside. [facility] ED NOTE HNO ID: [id number] Author: Summer Soares Service: ? Author Type: Heel Former and Educational Program Assistant Type: ED Notes Filed: 08/16/2022 6:20 PM Note Text: Bed: 45-ED Expected date: Expected time: Means of arrival: Comments: [place] transfer 52yo surg consult wound [facility] ED NOTE HNO ID: [id number] Author: Nevaeh Styles RN Service: Emergency Medicine Author Type: Registered Nurse Type: ED Notes Filed: 08/16/2022 10:18 PM Note Text: Pt requesting to have IV removed, states surgery told him from their perspective he was ok to go home. IV removed per pt request. Message sent to Dr. 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 The patient was transferred here as he is a bariatric patient that exceeds the weight limit for the transferring facilities operating room bed. The patient states that he had irritation around his rectum for several days. He was seen by his primary care physician who gave him a cream to use around the rectum. It did not help. The patient noted his foul-smelling odor coming from drainage from his rectum and sought care in the emergency department. The patient underwent a CAT scan of his abdomen pelvis which demonstrated a perianal abscess with some surrounding tissue edema, but no subcutaneous air. The radiologist raise concerns for early Grecia's gangrene. The patient states that he has not had any fevers. He denies any chest pain, abdominal pain, dysuria, or diarrhea. He also denies any vomiting or coughing. On exam, the patient skin is pink, warm, dry. His lung abdalla are clear, respirations are unlabored. His abdomen is morbidly obese, but is soft and nontender without rebound or guarding. Upon examination of the perineal area patient has an open cavity around the anus that has a small amount of blood, but no purulent drainage or erythema. There is no erythema to the scrotum or palpable subcutaneous air. The patient has a white blood cell count of 12.94 with a hemoglobin 8.7. His BMP is within normal limits. He has a lactate of 4.7. He is receiving IV fluids. They had administered IV antibiotics at the transferring facility. He will undergo surgical consultation. Ultimately, the patient will require admission for IV antibiotics. He is currently in stable condition. PAOLA CAUSEY 08/16/222101 Normal [facility] ED PROV NOTE HNO ID: [id number] Author: Paola Causey MD Service: Emergency Medicine Author Type: Physician Type: ED Provider Notes Filed: 08/16/2022 11:35 PM Note Text: ED Provider Note Patient Name: Cayla Granados : 1970 SERVICE DATE: 08/16/22 History Patient presents with: Wound Check: Pt arrives by ems from [facility] for wound to scrotum, states to be admitted for observation. The patient is a 52-year-old male with a past medical history of perianal abscess, COPD on oxygen at 4 L per minute via nasal cannula, and diabetes who presents as a transfer from [facility] to be evaluated by general surgery for perianal abscess versus Grecia's gangrene. The patient initially presented to [facility] because he had a drainage through his rectum. He had irritation and pain at the site over the past few days in which his primary care physician was treating as peewee carranza . Yesterday when he went to bed, he had some irritation. This morning, he noticed that there was a foul-smelling odor with drainage around his private part so he went to the hospital. He denied any fevers, chills, diaphoresis, nausea, vomiting, diarrhea, constipation, abdominal pain, urinary symptoms, scrotal pain or swelling, and penile pain or swelling. PAST MEDICAL HISTORY Diagnosis Date Anxiety Colon polyps Constipation Depression Gastritis Hip disease Hip pain Hypercholesteremia Hypoglycemic syndrome Nausea Overactive bladder Panic attacks Rheumatoid arthritis (HCC) Stomach ulcer PAST SURGICAL HISTORY Procedure Laterality Date COLONOSCOP W/ OR W/O BRSH SPEC 03/05/16 Colonoscopy [facility] EGD W/O OR W/BRUSH/WASH 03/05/16 EGD [facility] NONE FAMILY HISTORY Problem Relation Age of Onset Kidney Disease Father Breast Cancer Mother other (thyroid issues) Sister Social History Tobacco Use Smoking status: Every Day Packs/day: 1.50 Types: Cigarettes Smokeless tobacco: Former Types: Chew Substance and Sexual Activity Alcohol use: No Drug use: No Sexual activity: Yes Partners: Female control/protection: None ALLERGIES Allergen Reactions Diclofenac Hives Folic Acid GI Upset dizzy/light headed Methotrexate GI Upset dizzy, light headed, diarrhea/vomiting Plaquenil [Hydroxyc* GI Upset dizzy/light headed Review of Systems Constitutional: Negative for appetite change, fever and unexpected weight change. HENT: Negative for congestion, ear pain, hearing loss, nosebleeds, rhinorrhea, sinus pressure, sinus pain, sore throat, tinnitus and trouble swallowing. Eyes: Negative for photophobia and pain. Respiratory: Negative for cough, chest tightness, shortness of breath and wheezing. Cardiovascular: Negative for chest pain, palpitations and leg swelling. Gastrointestinal: Negative for abdominal distention, abdominal pain, constipation, diarrhea, nausea and vomiting. Genitourinary: Negative for decreased urine volume, difficulty urinating, dysuria, flank pain, frequency, hematuria and urgency. Musculoskeletal: Negative for arthralgias, back pain, joint swelling, myalgias and neck pain. Skin: Positive for wound. Allergic/Immunologic: Negative for environmental allergies and food allergies. Neurological: Negative for dizziness, syncope, weakness, light-headedness, numbness and headaches. Psychiatric/Behavioral: Negative for suicidal ideas. Physical Exam Vitals [08/16/22 1821] BP Pulse Temp Temp src Resp SpO2 Weight Height (!) 159/124 (!) 98 36.7 ?C (98.1 ?F) Oral 20 100 % (!) 212.7 kg (469 lb) 1.854 m (6' 1 ) Physical Exam Vitals and nursing note reviewed. Constitutional: General: He is awake. He is not in acute distress. Appearance: Normal appearance. He is well-developed. He is not ill-appearing, toxic-appearing or diaphoretic. HENT: Head: Normocephalic and atraumatic. Right Ear: External ear normal. Left Ear: External ear normal. Nose: Nose normal. Mouth/Throat: Mouth: Mucous membranes are moist. Eyes: Extraocular Movements: Extraocular movements intact. Conjunctiva/sclera: Conjunctivae normal. Pupils: Pupils are equal, round, and reactive to light. Cardiovascular: Rate and Rhythm: Regular rhythm. Tachycardia present. Pulses: Normal pulses. Heart sounds: Normal heart sounds. No murmur heard. No friction rub. No gallop. Pulmonary: Effort: Pulmonary effort is normal. Breath sounds: Normal breath sounds. No wheezing, rhonchi or rales. Abdominal: General: Abdomen is flat. Bowel sounds are normal. There is no distension. Palpations: Abdomen is soft. Tenderness: There is no abdominal tenderness. There is no guarding or rebound. Genitourinary: Musculoskeletal: General: No swelling or tenderness. Normal range of motion. Cervical back: Neck supple. Right lower leg: Edema present. Left lower leg: Edema present. Skin: General: Skin is warm. Capillary Refill: Capilla (more content not included)... Normal [facility] HbA1c (Bld)on 08-16-2022 Average glucose Estimated from glycated hemoglobin (Bld) [Mass/Vol] 169 mg/dL Normal [facility] Comment on above: Order Comment: Speci men Type: BLOOD SPECIMEN Ordering Facility: [facility] Address: [address] [place] [address], [place] [address] Result Comment: eAG: (Estimated average glucose) is a calculated value from HgbA1c and is public relations representative of the average blood glucose level in the last 2-3 month period. Performed By: #### 5 5454-3, 19956-8 #### [facility] CLIA [id number] [address] STATES OF [facility] HbA1c (Bld) [Mass fraction] 7.5 % High 4.3-5.6 [facility] Comment on above: Order Comment: Sreekanth ludwig Type: BLOOD SPECIMEN Ordering Facility: [facility] Address: [address] [place] [address] Result Comment: Amer ican Diabetes Association guidelines indicate that patients with HgbA1c in the range 5.7-6.4% are at increased risk for development of diabetes, and intervention by lifestyle modification may be beneficial. HgbA1c greater or equal to 6.5% is considered diagnostic of diabetes. Performed By: #### 5 5454-3, 21279-0 #### [facility] CLIA [id number] [address] OF [facility] LIPID PANEL, NONFASTINGon Cholesterol [Mass/Vol] 117 mg/dL Normal <200 [facility] Comment on above: Order Comment: Sreekanth ludwig Type: BLOOD SPECIMEN [facility] Address: [address] [place] [address] Result Comment: <200 mg/dL, Desirable 200-239 mg/dL, Borderline high >239 mg/dL, High Performed By: #### 5 8410-2 #### [facility] CLIA [id number] [address] [place] [address] OF [facility] HDL CHOLESTEROL, NF 41 mg/dL Normal >39 [facility] Comment on above: Order Comment: Sreekanth ludwig Type: BLOOD SPECIMEN [facility] Address: [address] [place] [address], [place] [address] Result Comment: 40-5 9 mg/dL, Acceptable >59 mg/dL, High: Negative risk factor for coronary heart disease <40 mg/dL, Low: Positive risk factor for coronary heart disease Performed By: #### 5 8410-2 #### [facility] CLIA [id number] [address] [place] [address] [facility] LDL CHOLESTEROL, NF 59 mg/dL Normal <100 [facility] Comment on above: Order Comment: Maritzawillam ludwig Type: BLOOD SPECIMEN [facility] Address: [address] [place] [address], [place] [address] Result Comment: <100 mg/dL, Optimal 100-129 mg/dL, Near optimal/above optimal 130-159 mg/dL, Borderline high 160-189 mg/dL, High >189 mg/dL, Very high Secondary prevention optimal LDL Cholesterol levels are recommended to be < 70 mg/dL Performed By: #### 5 8410-2 #### [facility] CLIA [id number] [address] LDL/HDL RATIO, NF 1.44 mg/dL Normal <2.54 [facility] Comment on above: Order Comment: Maritzawillam ludwig Type: BLOOD SPECIMEN Ordering Facility: [facility] Address: [address] [place] [address], [place] [address] Result Comment: Refe rence: 1. National Cholesterol Education Program ATP III Guideline At-A-Glance Quick Desk Reference: National Heart, Lung, and Blood [place]. National Institutes of Health. 2001: NIH Publication No. 01-3305. 2. An International Atherosclerosis Society position paper: global recommendations for the management of dyslipidemia: executive summary, Atherosclerosis. 2014: 232(2):410-413. Performed By: #### 5 8410-2 #### [facility] CLIA [id number] [address] [place] [address] NON HDL CHOL, NF 76 mg/dL Normal <130 [facility] Comment on above: Order Comment: Sreekanth ludwig Type: BLOOD SPECIMEN [facility] Address: [address] [place] [address], [place] [address] Result Comment: <130 mg/dL, Optimal 130-159 mg/dL, Near optimal/above optimal 160-189 mg/dL, Borderline high 190-219 mg/dL, High >219 mg/dL, Very high Secondary prevention optimal non HDL Cholesterol levels are recommended to be <100 mg/dL Performed By: #### 5 8410-2 #### [facility] CLIA [id number] [address] [place] [address] [facility] T CHOL/HDL RATIO NF 2.85 mg/dL Normal <5.10 [facility] Comment on above: Order Comment: Specwillam ludwig Type: BLOOD SPECIMEN [facility] Address: [address] [place] [address], [place] [address] Performed By: #### 5 8410-2 #### [facility] CLIA [id number] [address] [place] [address] [facility] TRIGLYCERIDES, NF 84 mg/dL Normal <150 [facility] Comment on above: Order Comment: Speci oziel Type: BLOOD SPECIMEN Ordering Facility: [facility] Address: [address] [place] [address], [place] [address] Result Comment: <150 mg/dL, Normal 150-199 mg/dL, Borderline high 200-499 mg/dL, High >499 mg/dL, Very high Performed By: #### 5 8410-2 #### [facility] CLIA [id number] [address] VLDL CHOLESTEROL, NF 17 mg/dL Normal <30 [facility] Comment on above: Order Comment: Sreekanth ludwig Type: BLOOD SPECIMEN Ordering Facility: [facility] Address: [address] [place] [address], [place] [address] Performed By: #### 5 8410-2 #### [facility] CLIA [id number] [address] [place] [address] [facility] SARS-CoV-2 RNA Resp Ql MEGAN+p robeon 08-16-2022 SARS-CoV-2 (COVID-19) RNA MEGAN+probe Ql (Resp) COVID 19 RESULT: SARS-CoV-2 (Agent of COVID-19) Not Detected by RT-PCR or equivalent method. This test has been authorized by FDA under an Emergency Use Authorization (EUA). Normal [facility] Comment on above: Performed By: #### 5 5454-3, 46370-2 #### [facility] CLIA [id number] [address] Clinic Note - Intakeon 04-12 Clinic Note - Intake Patient Visit Information:? Visit TypeFollow Up Visit? Patient StatesPt here for infusion? Source of Informationpatient? Accompanied byspouse Admission Information:? Admission Since Last VisitNo Vital Signs:? Temp (degrees C)36.5 degrees C? Temperaturetympanic? Heart Rate (beats/min)105 beats per minute? Respiration (breaths/min)18 breath per minute? BP Systolic (mm Hg)Image has been removed. 170 mmHg? BP Diastolic (mm Hg)83 mmHg? BP Mean (mm Hg)Image has been removed. 112 mmHg? Height in cm186.6 centimeter(s)? Height Methodstated per previous visit? Heightstanding? Weight in kg187.3 kilogram(s)? Weight Methodstanding scale? BMI (kg/m2)53.7? BSA (m2)3.11? SpO2 (%)99 %? SpO2 Patient Onroom air Pain Screening:? Patient States Painyes? Current Pain Score (0-10)10? Pain Description/Locationever ywhere? Pain Scale UsedNumeric (0-10)? Nurse Gabby Reagan Allergies:Benicar: Drug, Unknown, Activeclonazepam: Drug, Unknown, ActiveLevaquin: Drug, Unknown, Activemethotrexate: Drug, Unknown, ActivePlaquenil: Drug, Unknown, ActivepredniSONE: Drug, Unknown, Activesulfa drugs: Drug Category, Unknown, Active Outpatient Medication Profile:* Patient Currently Takes Medications as of 12-Apr-2018 12:53 documented inStructured NotesinFLIXimab 100 mg intravenous injection: Last Dose Taken: , 600 milligram(s)intravenous 1st week then 2weeks and six weeks and then monthly maintenance.acetaminophe n 325 mg oral tablet: Last Dose Taken: , 650 milligram(s) orallypremed for infliximabdiphenhydrAMIN E 25 mg oral capsule: Last Dose Taken: , Premed for Infliximabcyclobenzaprin e 10 mg oral tablet: Last Dose Taken: , 1 tab(s) orally 3 timesa dayhydrocodone-ibuprofen 5 mg-200 mg oral tablet: Last Dose Taken: , 1 tab(s)orally every 6 hoursgabapentin 300 mg oral tablet: Last Dose Taken: , 1 tab(s) orally once a day(at bedtime)predniSONE 20 mg oral tablet: Last Dose Taken: , 1 tab(s) orally once a dayArava 20 mg oral tablet: Last Dose Taken: , 1 tab(s) orally once a dayLasix 40 mg oral tablet: Last Dose Taken: , 1 tab(s) orally once a dayHyzaar 100 mg-25 mg oral tablet: Last Dose Taken: , 1 tab(s) orally once adayPaxil 10 mg oral tablet: Last Dose Taken: , 1 tab(s) orally once a dayomeprazole 20 mg oral delayed release capsule: Last Dose Taken: , 1 cap(s)orally 2 times a daycyanocobalamin 1000 mcg oral tablet: Last Dose Taken: , orally once a weekSynthroid 150 mcg (0.15 mg) oral tablet: Last Dose Taken: , 2 tab(s) orallyonce a dayBentyl 20 mg oral tablet: Last Dose Taken: , 1 tab(s) orally once a dayraNITIdine 300 mg oral tablet: Last Dose Taken: , 1 tab(s) orally once a day(at bedtime)Valium 10 mg oral tablet: Last Dose Taken: , 1 tab(s) orally 3 times a day,As Needed Notification:Notificatio nsAnnual Screens Due Dates Advanced Directives: Due NowFamily Violence: Sep 04, 2018Depression: Sep 04, 2018 Substance Use - Alcohol: Due Now Substance Use - Drugs: Due NowAlcohol/Substance: Patient declined Oct 05, 2017Nutrition: Sep 04, 2018Learning: Sep 04, 2018 Falls:Have you fallen in the last 6 monthsnoDo you have a fear of fallingnoDo you feel you need assistancenoIs the patient using an assistive deviceyesAltered Mobilityassistive device Electronic Signatures:SARA PETE) (Signed 12-Apr-2018 12:54)Authored: Patient Visit Information, Vital Signs, Allergies, OutpatientMedication Profile, Adult Admission Risk Screen Last Updated: 12-Apr-2018 12:54 by SARA PETE) Normal [facility] ALBUMINon 02-01-2018 Albumin mass conc 3.3 g/dL Low 3.4 - 5.0 [facility] Comment on above: Performed By: #### A LB ####[id number] [place] [address] Ryan 02-01-2018 ALT enzyme act/vol 12 U/L Normal 10 - 52 [facility] Comment on above: Result Comment: Madelyn ents treated with Sulfasalazine may generate falsely decreased results for ALT. Performed By: #### A LB ####[facility] [place] [address] Yelena 02-01-2018 AST enzyme act/vol 12 U/L Normal 9 - 39 [facility] Comment on above: Performed By: #### A LB ####[facility] [place] [address] C-REACTIVE PROTEINon 018 CRP mass conc 1.88 mg/dL Abnormal [facility] Comment on above: Result Comment: REF VALUE< 1.00 Performed By: #### A LB ####[facility] [place] [address] CBC AND DIFFERENTIALon 02-01 % AUTOMATED IMMATURE GRAN 0.3 % Normal 0.0 - 0.9 [facility] Comment on above: Result Comment: Perc ent differential counts (%) should be interpreted in the context of the absolute cell counts (cells/L). Performed By: #### A LB ####[facility] [place] [address] % NEUTROPHIL 74.4 % Normal 40.0 - 80.0 [facility] Comment on above: Performed By: #### A LB ####[facility] [place] [address] Basophils/100 WBC Auto (Bld) 0.2 % Normal 0.0 - 2.0 [facility] Comment on above: Performed By: #### A LB ####[facility] [place] [address] Basophils/100 WBC Auto (Bld) 0.02 x10E9/L Normal 0.00 - 0.10 [facility] Comment on above: Performed By: #### A LB ####[facility] [place] [address] Eosinophils Auto #/vol (Bld) 0.20 10*3/uL Normal 0.00 - 0.70 [facility] Comment on above: Performed By: #### A LB ####[facility] [place] [address] Eosinophils/100 WBC Auto (Bld) 1.7 % Normal 0.0 - 6.0 [facility] Comment on above: Performed By: #### A LB ####[facility] [place] [address] Erythrocyte distribution width Auto Ratio (RBC) 14.5 % Normal 11.5 - 14.5 [facility] Comment on above: Performed By: #### A LB ####[facility] [place] [address] Hematocrit Auto Volume Fraction (Bld) 44.0 % Normal 41.0 - 52.0 [facility] Comment on above: Performed By: #### A LB ####[facility] [place] [address] Hemoglobin mass conc (Bld) 12.7 g/dL Low 13.5 - 17.5 [facility] Comment on above: Performed By: #### A LB ####[facility] [place] [address] Lymphocytes Auto #/vol (Bld) 2.34 10*3/uL Normal 1.20 - 4.80 [facility] Comment on above: Performed By: #### A LB ####[facility] [place] [address] Lymphocytes/100 WBC Auto (Bld) 19.8 % Normal 13.0 - 44.0 [facility] Comment on above: Performed By: #### A LB ####[facility] [place] [address] MCHC Auto mass conc (RBC) 28.9 g/dL Low 32.0 - 36.0 [facility] Comment on above: Performed By: #### A LB ####[facility] [place] [address] MCV Auto Entitic volume (RBC) 87 fL Normal 80 - 100 [facility] Comment on above: Performed By: #### A LB ####[facility] [place] [address] Monocytes Auto #/vol (Bld) 0.43 10*3/uL Normal 0.10 - 1.00 [facility] Comment on above: Performed By: #### A LB ####[facility] [place] [address] Monocytes/100 WBC Auto (Bld) 3.6 % Normal 2.0 - 10.0 [facility] Comment on above: Performed By: #### A LB ####[facility] [place] [address] Neutrophils Auto #/vol (Bld) 8.82 10*3/uL High 1.20 - 7.70 [facility] Comment on above: Performed By: #### A LB ####[facility] [place] [address] Nucleated RBC/100 WBC Ratio (Bld) 0.0 /100 WBC Normal 0.0-0.0 [facility] Comment on above: Performed By: #### A LB ####[facility] [place] [address] Platelets Auto #/vol (Bld) 288 10*3/uL Normal 150 - 450 [facility] Comment on above: Performed By: #### A LB ####[facility] [place] [address] RBC Auto #/vol (Bld) 5.04 x10E12/L Normal 4.50 - 5.90 [facility] Comment on above: Performed By: #### A LB ####[facility] [place] [address] WBC Auto #/vol (Bld) 11.8 10*3/uL High 4.4 - 11.3 [facility] Comment on above: Performed By: #### A LB ####[facility] [id number] CREATININEon 02-01-2018 Creatinine mass conc 1.00 mg/dL Normal 0.50 - 1.30 [facility] Comment on above: Performed By: #### A LB ####[facility] [place] [address] GFR- AM. >60 Normal >60 [facility] Comment on above: Result Comment: CALC ULATIONS OF ESTIMATED GFR ARE PERFORMED USING THE MDRD STUDY EQUATION FOR THE IDMS-TRACEABLE CREATININE METHODS. CLIN CHEM 2007;53:766-72 Performed By: #### A LB ####[facility] [place] [address] GFR-NON AM. >60 Normal >60 [facility] Comment on above: Performed By: #### A LB ####[facility] [id number] Follow Up (Rheumatology)on 0 02-01-2018 Follow Up (Rheumatology) Chief ComplaintRA follow up History of Present IllnessInterval Events: Pt feels better. Has been able to decrease prednisone somewhat but occasionally will still take 20mg prednisone. Reports severe foot pain--feels like he is walking on rocks. Symptoms: Associated Symptoms: fatigue. Activities: able to do activities of daily living with limitations, able to do housework with limitations and able to work with limitations. Medications: the patient is adherent with his medication regimen. He denies medication side effects. Review of SystemsConstitutional: no fever, no chills, not feeling tired, no recent weight gain and no recent weight loss. ENT: no earache, no hearing loss, no nosebleeds, no nasal discharge, no sore throat and no hoarseness. Cardiovascular: the heart rate was not slow, the heart rate was not fast, no chest pain, no palpitations, no intermittent leg claudication and no lower extremity edema. Respiratory: no cough, not coughing up sputum and no wheezing that is consistent with asthma. Gastrointestinal: no constipation, no melena, no nausea, no diarrhea, no vomiting and no blood in stools. Musculoskeletal: arthralgias, myalgias, back pain, joint swelling and joint stiffness, but no limb pain and no limb swelling. Integumentary: no rashes, no skin lesions, no itching, no skin wound and no dry skin. Neurological: headache, but no confusion, no numbness, no dizziness, no tingling and no fainting. 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 (V58.65) (Z79.52) Long-term use of immunosuppressant medication (V58.69) (Z79.899) Osteoarthritis (715.90) (M19.90) Rheumatoid arthritis (714.0) (M06.9) Past Medical History History of Encounter for monitoring Arava therapy (V58.83,V58.69) (Z51.81,Z79.899) History of Eye pain, bilateral (379.91) (H57.13) History of acute respiratory failure (V12.69) (Z87.09) History of hyperlipidemia (V12.29) (Z86.39) History of parotitis (V12.79) (Z87.19) History of pneumonia (V12.61) (Z87.01) History of psoriasis (V13.3) (Z87.2) History of right bundle branch block (RBBB) (V15.1) (Z86.79) History of Meralgia paresthetica (355.1) (G57.10) History of Morbid obesity (278.01) (E66.01) History of Mouth sores (528.9) (K13.79) History of Need for hepatitis C screening test (V73.89) (Z11.59) History of BERT (obstructive sleep apnea) (327.23) (G47.33) History of Panic disorder (300.01) (F41.0) History of Requires oxygen therapy (V46.2) (Z99.81) Family History Family history of malignant neoplasm of breast (V16.3) (Z80.3) Family history of Benign essential hypertension Family history of CAD (coronary artery disease) Family history of cerebrovascular accident (CVA) (V17.1) (Z82.3) Family history of chronic kidney disease (V18.69) (Z84.1) Family history of diabetes mellitus (V18.0) (Z83.3) Social History Applying for disability Born in [place] Current every day smoker (305.1) (F17.200) Daily caffeine consumption, 6-8 servings a day No alcohol use Tobacco use current (305.1) (Z72.0) Unemployed, not looking for work Allergies Benicar Recorded By: Jessie Renee; 10/15/2016 7:43:36 AM clonazepam Recorded By: Jessie Renee; 10/15/2016 7:43:36 AM folic acid Recorded By: Dillon Arnold; 10/16/2016 10:17:52 AM Levaquin TABS Recorded By: Jessie Renee; 10/15/2016 7:43:36 AM methotrexate Recorded By: Dillon Arnold; 10/16/2016 10:17:52 AM Nystatin TABS Recorded By: Jessie Renee; 10/15/2016 7:43:36 AM Penicillins Recorded By: Jessie Renee; 10/16/2016 9:58:50 AM Plaquenil TABS Recorded By: Dillon Arnold; 10/16/2016 10:17:52 AM Plavix Recorded By: Jessie Renee; 10/15/2016 7:43:36 AM predniSONE Recorded By: Dillon Arnold; 11/24/2016 10:33:19 AM Sulfa Drugs Recorded By: Jessie Renee; 10/16/2016 9:58:50 AM Xeljanz TABS Recorded By: Dillon Arnold; 12/24/2016 3:27:49 PM Zithromax TABS Recorded By: Jessie Renee; 10/15/2016 7:43:36 AM Current Meds Remicade 100 MG Intravenous Solution Reconstituted; USE DIRECTED;Therapy: 17May2017 to Recorded Rx By: Jessie Renee; Dispense: 0 Days ; #:1 Solution Reconstituted; Refill: 0;For: residential current use of systemic steroids; FRANCES = N; Record PredniSONE 10 MG Oral Tablet; take 2 tablets by mouth every 12 hours;Therapy: 03Weu3833 to (Evaluate:17May2018) Requested for: [id number]; LastRx:[id number] Ordered Rx By: Jessie Renee; Dispense: 30 Days ; #:120 TAB; Refill: 5;For: Rheumatoid arthritis; FRANCES = N; Verified Transmission to [address]; Last Updated By: Paola Barry; 02/01/2018 9:17:37 AM Albuterol Sulfate 0.63 MG/3ML Inhalation Nebulization Solution;Therapy: 98Umf3726 to Recorded Dispense: 4 Days ; #:75 NEBU; Refill: 0; FRANCES = N; Record; Last Updated By: Jessie Renee; 03/15/2017 11:59:14 AM Azelastine HCl - 137 MCG/SPRAY Nasal Solution;Therapy: 53Gya2174 to Recorded Dispense: 30 Days ; #:30 SOLN; Refill: 0; FRANCES = N; Record; Last Updated By: Jessie Renee; 08/09/2017 10:00:04 AM BD Insulin Syringe U-40 25G X 5/8 1 ML MISC; USE WITH B-12 INJECTION TWICEMONTHLY;Therapy: 61Nxh8342 to Recorded Rx By: JR; Dispense: 28 Days ; #:2 MISC; Refill: 0; FRANCES = N; Record; Last Updated By: Jessie Renee; 11/02/2017 7:37:14 PM BD Luer-Marky Syringe 25G X 5/8 3 ML Miscellaneous; USE WITH B12 INJECTIONTWICE MONTHLY;Therapy: 69Prl1275 to Recorded Rx By: JR; Dispense: 28 Days ; #:2 MISC; Refill: 0; FRANCES = N; Record; Last Updated By: Jessie Renee; 11/02/2017 7:37:14 PM Bumetanide 2 MG Oral Tablet;Therapy: (Recorded:17Fre7639) to Recorded Dispense: 0 Days ; #: Sufficient TABS; Refill: 0; FRANCES = N; Record; Last Updated By: Esthela Epps; 02/01/2018 9:10:45 AM Cyanocobalamin 1000 MCG/ML Injection Solution;Therapy: 20Pyw9024 to Recorded Dispense: 30 Days ; #:1 SOLN; Refill: 0; FRANCES = N; Record; Last Updated By: Jessie Renee; 10/16/2016 9:06:18 AM D3-50 26113 UNIT Oral Capsule;Therapy: 71Ulk8395 to Recorded Dispense: 28 Days ; #:8 CAPS; Refill: 0; FRNACES = N; Record; Last Updated By: Jessie Renee; 03/15/2017 11:59:14 AM DiazePAM 10 MG Oral Tablet; TAKE 1 TABLET DAILY DIRECTED;Therapy: 12Nov2015 to Recorded Dispense: 0 Days ; #: Sufficient Tablet; Refill: 0; FRANCES = N; Record; Last Updated By: Cornelia Parish; 05/18/2017 8:19:34 AM EpiPen 2-Vic 0.3 MG/0.3ML Injection Solution Auto-injector;Therapy: 27Nov2015 to Recorded Dispense: 1 Days ; #:2 SOAJ; Refill: 0; FRANCES = N; Record; Last Updated By: Jessie Renee; 10/16/2016 9:06:18 AM FreeStyle Sheldon Lite w/Device Kit; use as directed TO CHECK BLOOD;Therapy: 67Ugx6095 to Recorded Rx By: JR; Dispense: 1 Days ; #:1 KIT; Refill: 0; FRANCES = N; Record; Last Updated By: Jessie Renee; 08/09/2017 10:00:04 AM FreeStyle Lancets Miscellaneous;Therapy: 92Kdg9298 to Recorded Dispense: 30 Days ; #:100 MISC; Refill: 0; FRANCES = N; Record; Last Updated By: Jessie Renee; 10/16/2016 9:06:18 AM FreeStyle Lite Test In Vitro Strip;Therapy: 15Nov2015 to Recorded Dispense: 30 Days ; #:50 STRP; Refill: 0; FRANCES = N; Record; Last Updated By: Jessie Renee; 10/16/2016 9:06:18 AM Furosemide 40 MG Oral Tablet; take 1 tablet by mouth once daily;Therapy: 83Dxh5990 to Recorded Rx By: JO ANN; Dispense: 30 Days ; #:30 TABS; Refill: 0; FRANCES = N; Record; Last Updated By: Jessie Renee; 02/01/2018 9:16:33 AM Hydrocortisone 2.5 % Rectal Cream;Therapy: 06Oct2016 to Recorded Dispense: 15 Days ; #:30 CREA; Refill: 0; FRANCES = N; Record; Last Updated By: Jessie Renee; 10/16/2016 9:06:18 AM Ipratropium-Albuterol 0.5-2.5 (3) MG/3ML Inhalation Solution;Therapy: 31Dec2016 to Recorded Dispense: 5 Days ; #:90 SOLN; Refill: 0; FRANCES = N; Record; Last Updated By: Jessie Renee; 03/15/2017 11:59:14 AM Levothyroxine Sodium 150 MCG Oral Tablet; 2 tablets once daily;Therapy: 36Nlo6075 to Recorded Dispense: 0 Days ; #: Sufficient Tablet; Refill: 0; FRANCES = N; Record; Last Updated By: Cornelia Parish; 05/18/2017 8:19:34 AM Loperamide HCl - 2 MG Oral Capsule; take 1 capsule by mouth four times a day ifneeded;Therapy: 92Ilz8883 to Recorded Rx By: JR; Dispense: 30 Days ; #:120 CAPS; Refill: 0; FRANCES = N; Record; Last Updated By: Jessie Renee; 11/02/2017 7:37:14 PM Loratadine 10 MG Oral Tablet;Therapy: (Recorded:09Buh6175) to Recorded Dispense: 0 Days ; #: Sufficient TABS; Refill: 0; FRANCES = N; Record; Last Updated By: Esthela Epps; 02/01/2018 9:10:45 AM Losartan Potassium-HCTZ 50-12.5 MG Oral Tablet; take 1 tablet by mouth once daily;Therapy: 93Odg8434 to Recorded Rx By: JR; Dispense: 20 Days ; #:20 TABS; Refill: 0; FRANCES = N; Record; Last Updated By: Jessie Renee; 11/02/2017 7:37:14 PM Neurontin 600 MG Oral Tablet; TAKE 1 TABLET 3 TIMES DAILY;Therapy: 16Oct2016 to Recorded Dispense: 0 Days ; #: Sufficient Tablet; Refill: 0; FRANCES = N; Record; Last Updated By: Dillon Arnold; 10/16/2016 9:56:43 AM NovoLOG FlexPen 100 UNIT/ML Subcutaneous Solution Pen-injector;Therapy: 22Qwd8571 to Recorded Dispense: 30 Days ; #:9 SOPN; Refill: 0; FRANCES = N; Record; Last Updated By: Jessie Renee; 05/17/2017 8:41:03 AM Potassium Chloride ER 10 MEQ Oral Capsule Extended Release;Therapy: 45Xtl3193 to Recorded Dispense: 30 Days ; #:60 CPCR; Refill: 0; FRANCES = N; Record; Last Updated By: Jessie Renee; 03/15/2017 11:59:14 AM Pradaxa 150 MG Oral Capsule; one tablet daily;Therapy: 12Nov2015 to (Evaluate:94Vad6485) Recorded Dispense: 30 Days ; #:60 Capsule; Refill: 0; FRANCES = N; Record; Last Updated By: Cornelia Parish; 05/18/2017 8:19:34 AM PriLOSEC OTC 20 MG Oral Tablet Delayed Release; TAKE 1 TABLET DAILY;Therapy: 16Oct2016 to Recorded Dispense: 0 Days ; #: Sufficient Tablet Delayed Release; Refill: 0; FRANCES = N; Record; Last Updated By: Dillon Arnold; 10/16/2016 9:56:43 AM Topiramate 50 MG Oral Tablet;Therapy: 00Nwv0850 to Recorded Rx By: JR; Dispense: 30 Days ; #:60 TABS; Refill: 0; FRANCES = N; Record; Last Updated By: Jessie Renee; 10/16/2016 9:06:18 AM TraMADol HCl - 50 MG Oral Tablet; TAKE 1 TABLET 3 TIMES DAILY NEEDED;Therapy: 80Grl3159 to Recorded Dispense: 0 Days ; #: Sufficient Tablet; Refill: 0; FRANCES = N; Record; Last Updated By: Cornelia Parish; 05/18/2017 8:19:34 AM Vitals Vital Signs Recorded: 54Nmq7637 09:94XFNepvyatygzr95 F, OralHeart Eqhw79Nrnwaweh241, LUE, VkfuzayXgjswhlkx39, LUE, SittingBlood Pressure Cuff CdgnRfnyhOadnro288 lb 8 ozBMI Ijegayjick27.4BSA Calculated2.97O2 Tpnyqrtndo97 Physical ExamConstitutional General appearance: Alert and in no acute distress. Head and Face Head and face: Normal. Ears, Nose, Mouth, and Throat Hearing: Normal. Pulmonary Respiratory assessment: No respiratory distress, normal respiratory rhythm and effort. Cardiovascular Exam for edema: No peripheral edema. Musculoskeletal Gait and station: Abnormal. uses cane. atlagic. Inspection of digits and nails: No clubbing or cyanosis of the fingernails. Inspection/palpation of joints, bones, and muscles: Abnormal. (DECREASED Swelling of dorsum of hands, No active synovitis). Appearance - no erythema, no ecchymosis, no amputations, no deformity, no asymmetry, no contractures and normal spinal curvature. Palpation - no increased warmth, no masses, no click and no crepitus. Range of Motion: Normal movement of all extremities. Stability: Normal. Muscle strength/tone: Normal. Skin Skin and subcutaneous tissue: Abnormal. +nodules on extensor surfaces of forearm. Neurologic Coordination: Normal. Psychiatric Judgment and insight: Intact. Orientation: Oriented to person, place, and time. Recent and remote memory: Normal. Mood and affect: Normal. Diagnoses/Problems Rheumatoid arthritis (714.0) (M06.9) Osteoarthritis (715.90) (M19.90) Long-term use of immunosuppressant medication (V58.69) (Z79.899) BMI over 35 Orders Xray Foot Complete Min 3 View; Status:Hold For - Scheduling; Requested for:83Lnf5105; Perform:[facility]; Due:56Agw3991;Ordered; For:Rheumatoid arthritis; Ordered By:Jessie Renee;Laterality : BILATRadiologist to Determine Optimal Study : YWhat are the patient's signs and symptoms? : B foot pain Stop: Furosemide 40 MG Oral Tablet Rx By: JO ANN; Dispense: 30 Days ; #:30 TABS; Refill: 0; FRANCES = N; Record; Last Updated By: Jessie Renee; 02/01/2018 9:16:33 AM Provider Impressions1. RA, seropositive. Doing better on remicade. Slow taper of steroids. Patient has failed the following meds enbrel, xeljanz, MTX, SSZ, arava Insurance denied rituxanLast TB test was November 2016 and negative Pt is now on chronic steroids. Due to immunosuppression, vaccination is important 2. foot pain--get xrays3. with improvement of RA, increased mobility should help decrease BMIThe patient's labs, radiology images and reports, and other tests since previous appointment were obtained, reviewed, and summarized as applicable from the physician portal, electronic medical records systems and/or outside sources. Pertinent positive and negative findings were considered in medical decision making. All questions were answered and the patient was counseled regarding the diagnosis, prognosis, risk and benefits of the various treatment options and the importance of compliance with therapy. Patient Discussion/Summaryfollow up 2-3 moPatient Education Homegoing instructionsYou are on medications that suppress your immune system. This may increase your risk of infections. Please call me or your primary care doctor if you are starting to feel sick. It is also important to be up to date on your vaccines.As always, a healthy lifestyle helps chronic diseases. Eat a balanced diet, exercise at least 30 minutes a day/5 days a week and be up to date on screening health exams Go on [employer] to view your test results. Please ask the office to help you set up your email in order to access this secure system. You can use [employer] to also contact the office for noncritical issues, schedule/cancel appointments and ask for refills. Thank you.. End of Encounter MedsAlbuterol Sulfate 0.63 MG/3ML Inhalation Nebulization Solution;Therapy: 07Lsu5199 to RecordedAzelastine HCl - 137 MCG/SPRAY Nasal Solution;Therapy: 77Ifb0645 to RecordedBD Insulin Syringe U-40 25G X 5/8 1 ML MISC; USE WITH B-12 INJECTION TWICEMONTHLY;Therapy: 69Eyp8519 to RecordedBD Luer-Marky Syringe 25G X 5/8 3 ML Miscellaneous; USE WITH B12 INJECTIONTWICE MONTHLY;Therapy: 21Ylk4905 to RecordedBumetanide 2 MG Oral Tablet;Therapy: (Recorded:77Qtv6464) to RecordedCyanocobalamin 1000 MCG/ML Injection Solution;Therapy: 04Sep2016 to RecordedD3-50 39439 UNIT Oral Capsule;Therapy: 13Vce9808 to RecordedDiazePAM 10 MG Oral Tablet; TAKE 1 TABLET DAILY DIRECTED;Therapy: 63Qar2129 to RecordedEpiPen 2-Vic 0.3 MG/0.3ML Injection Solution Auto-injector;Therapy: 27Nov2015 to RecordedFreeStyle Sheldon Lite w/Device Kit; use as directed TO CHECK BLOOD;Therapy: 86Dci6581 to RecordedFreeStyle Lancets Miscellaneous;Therapy: 12Nov2015 to RecordedFreeStyle Lite Test In Vitro Strip;Therapy: 15Nov2015 to RecordedHydrocortisone 2.5 % Rectal Cream;Therapy: 06Oct2016 to RecordedIpratropium-Albu terol 0.5-2.5 (3) MG/3ML Inhalation Solution;Therapy: 87Bci4268 to RecordedLevothyroxine Sodium 150 MCG Oral Tablet; 2 tablets once daily;Therapy: 37Qxe8583 to RecordedLoperamide HCl - 2 MG Oral Capsule; take 1 capsule by mouth four times a day ifneeded;Therapy: 78Jyr3304 to RecordedLoratadine 10 MG Oral Tablet;Therapy: (Recorded:31Khc3197) to RecordedLosartan Potassium-HCTZ 50-12.5 MG Oral Tablet; take 1 tablet by mouth once daily;Therapy: 88Feg6308 to RecordedNeurontin 600 MG Oral Tablet (Gabapentin); TAKE 1 TABLET 3 TIMES DAILY;Therapy: 16Oct2016 to RecordedNovoLOG FlexPen 100 UNIT/ML Subcutaneous Solution Pen-injector;Therapy: 20Rci2270 to RecordedPotassium Chloride ER 10 MEQ Oral Capsule Extended Release;Therapy: 72Mpp5393 to RecordedPradaxa 150 MG Oral Capsule; one tablet daily;Therapy: 23Emv3560 to (Evaluate:92Tcw2644) RecordedPredniSONE 10 MG Oral Tablet; Take 1 tablet daily;Therapy: 81Kpe6095 to Requested for: 62Adv6737 RecordedPriLOSEC OTC 20 MG Oral Tablet Delayed Release; TAKE 1 TABLET DAILY;Therapy: 16Oct2016 to RecordedRemicade 100 MG Intravenous Solution Reconstituted; USE DIRECTED;Therapy: 17May2017 to RecordedTopiramate 50 MG Oral Tablet;Therapy: 16Zfp6586 to RecordedTraMADol HCl - 50 MG Oral Tablet; TAKE 1 TABLET 3 TIMES DAILY NEEDED;Therapy: 68Mcg9765 to Recorded Signatures Electronically signed by : Jessie Renee MD; Feb 01 2018 9:26AM EST (Author) Normal Touchworks SEDIMENTATION RATE, ERYTHROC YTEon 02-01-2018 SEDIMENTATION RATE, ERYTHROCYTE 39 mm/h High 0 - 15 [facility] Comment on above: Performed By: #### A LB ####[facility] [place] [address] UREA NITROGENon 02-01-2018 Urea nitrogen mass conc 12 mg/dL Normal 6 - 23 [facility] Comment on above: Performed By: #### A LB ####[facility] [place] [address] Clinic Note - Intakeon 01-21 Clinic Note - Intake Patient Visit Information:? Visit TypeFollow Up Visit? Patient StatesHere for remicade? Source of Informationpatient Admission Information:? Admission Since Last VisitNo Vital Signs:? Temp (degrees C)36.4 degrees C? Temperaturetympanic? Heart Rate (beats/min)94 beats per minute? Respiration (breaths/min)24 breath per minute? BP Systolic (mm Hg)Image has been removed. 153 mmHg? BP Diastolic (mm Hg)Image has been removed. 107 mmHg? BP Mean (mm Hg)Image has been removed. 122 mmHg? Height in cm186.6 centimeter(s)? Height Methodmeasured? Heightstanding? Weight in kg190 kilogram(s)? Weight Methodstanding scale? BMI (kg/m2)54.5? BSA (m2)3.13 Pain Screening:? Patient States Painyes? Current Pain Score (0-10)7? Pain Description/Locationjoin ts? Pain Scale UsedNumeric (0-10)? Currently on a Pain Regimenyes? Nurse Notifiedyearturo Sams RN Allergies:Benicar: Drug, Unknown, Activeclonazepam: Drug, Unknown, ActiveLevaquin: Drug, Unknown, Activemethotrexate: Drug, Unknown, ActivePlaquenil: Drug, Unknown, ActivepredniSONE: Drug, Unknown, Activesulfa drugs: Drug Category, Unknown, Active Outpatient Medication Profile:* Patient Currently Takes Medications as of 21-Jan-2018 09:00 documented inStructured NotesinFLIXimab 100 mg intravenous injection: Last Dose Taken: , 600 milligram(s)intravenous 1st week then 2weeks and six weeks and then monthly maintenance.acetaminophe n 325 mg oral tablet: Last Dose Taken: , 650 milligram(s) orallypremed for infliximabdiphenhydrAMIN E 25 mg oral capsule: Last Dose Taken: , Premed for Infliximabcyclobenzaprin e 10 mg oral tablet: Last Dose Taken: , 1 tab(s) orally 3 timesa dayhydrocodone-ibuprofen 5 mg-200 mg oral tablet: Last Dose Taken: , 1 tab(s)orally every 6 hoursgabapentin 300 mg oral tablet: Last Dose Taken: , 1 tab(s) orally once a day(at bedtime)predniSONE 20 mg oral tablet: Last Dose Taken: , 1 tab(s) orally once a dayArava 20 mg oral tablet: Last Dose Taken: , 1 tab(s) orally once a dayLasix 40 mg oral tablet: Last Dose Taken: , 1 tab(s) orally once a dayHyzaar 100 mg-25 mg oral tablet: Last Dose Taken: , 1 tab(s) orally once adayPaxil 10 mg oral tablet: Last Dose Taken: , 1 tab(s) orally once a dayomeprazole 20 mg oral delayed release capsule: Last Dose Taken: , 1 cap(s)orally 2 times a daycyanocobalamin 1000 mcg oral tablet: Last Dose Taken: , orally once a weekSynthroid 150 mcg (0.15 mg) oral tablet: Last Dose Taken: , 2 tab(s) orallyonce a dayBentyl 20 mg oral tablet: Last Dose Taken: , 1 tab(s) orally once a dayraNITIdine 300 mg oral tablet: Last Dose Taken: , 1 tab(s) orally once a day(at bedtime)Valium 10 mg oral tablet: Last Dose Taken: , 1 tab(s) orally 3 times a day,As Needed Each Visit:Have you fallen in the last 6 months?noDo you have a fear of falling?noIs the patient using an assistive deviceyesDo you feel you need assistance?no Electronic Signatures:Dannielle Strauss (ANDRA) (Signed 21-Jan-2018 09:02)Authored: Patient Visit Information, Vital Signs, Allergies, OutpatientMedication Profile, Adult Admission Risk Screen Last Updated: 21-Jan-2018 09:02 by Dannielle Strauss (ANDRA) Normal [facility] HEPATITIS B CORE AB-TOTALon 08-27-2017 HEP. B CORE AB-TOTAL NONREACTIVE Normal NONREACTIVE [facility] Comment on above: Result Comment: Madelyn ents receiving more than 5 mg/day of biotin may have interference in test results. A sample should be taken no sooner than eight hours after previous dose. Contact [phone] for additional information. Performed By: #### A LB ####[facility] [place] [address] HEPATITIS B SURFACE AGon HEP.B SURFACE AG NONREACTIVE Normal NONREACTIVE [facility] Comment on above: Result Comment: Madelyn ents receiving more than 5 mg/day of biotin may have interference in test results. A sample should be taken no sooner than eight hours after previous dose. Contact [phone] for additional information. Performed By: #### H BSAG ####[facility] [place] [address] HEPATITIS C ABon 08-24-2017 HEPATITIS C AB NON-REACTIVE Normal NONREACTIVE [facility] Comment on above: Result Comment: Madelyn ents receiving more than 5 mg/day of biotin may have interference in test results. A sample should be taken no sooner than eight hours after previous dose. Contact [phone] for additional information. Performed By: #### H CVAB ####[facility] [place] [address] Lab Specimen Source Normal [facility] Comment on above: Performed By: #### H CVAB ####[facility] [place] [address] Performed By: #### A LB ####[facility] [place] [address] Performed By: #### H BSAG ####[facility] [place] [address] ESR-WESTERGRENon 05-19-2017 ESR-WESTERGREN 50 mm/h High 0 - 10 [facility] Comment on above: Performed By: #### E SRWS ####[facility] [place] [address] ALBUMINon 05-18-2017 Albumin mass conc 3.4 g/dL Normal 3.4 - 5.0 [facility] Comment on above: Performed By: #### A LB ####[facility] [place] [address] Ryan 05-18-2017 ALT enzyme act/vol 14 U/L Normal 10 - 52 [facility] Comment on above: Result Comment: Madelyn ents treated with Sulfasalazine may generate falsely decreased results for ALT. Performed By: #### A LT ####[facility] [place] [address] Yelena 05-18-2017 AST enzyme act/vol 13 U/L Normal 9 - 39 [facility] Comment on above: Performed By: #### A ST ####[facility] [place] [address] C-REACTIVE PROTEINon 017 CRP mass conc 3.77 mg/dL Abnormal [facility] Comment on above: Result Comment: REF VALUE< 1.00 Performed By: #### C RP ####[facility] [place] [address] CBC AND DIFFERENTIALon 05-18 % AUTOMATED IMMATURE GRAN 0.9 % Normal 0.0 - 0.9 [facility] Comment on above: Result Comment: Perc ent differential counts (%) should be interpreted in the context of the absolute cell counts (cells/L). Performed By: #### C BCDF ####[facility] [place] [address] % NEUTROPHIL 65.9 % Normal 40.0 - 80.0 [facility] Comment on above: Performed By: #### C BCDF ####[facility] [place] [address] Basophils/100 WBC Auto (Bld) 0.3 % Normal 0.0 - 2.0 [facility] Comment on above: Performed By: #### C BCDF ####[facility] [place] [address] Basophils/100 WBC Auto (Bld) 0.05 x10E9/L Normal 0.00 - 0.10 [facility] Comment on above: Performed By: #### C BCDF ####[facility] [place] [address] Eosinophils Auto #/vol (Bld) 0.28 10*3/uL Normal 0.00 - 0.70 [facility] Comment on above: Performed By: #### C BCDF ####[facility] [place] [address] Eosinophils/100 WBC Auto (Bld) 1.9 % Normal 0.0 - 6.0 [facility] Comment on above: Performed By: #### C BCDF ####[facility] [place] [address] Erythrocyte distribution width Auto Ratio (RBC) 14.4 % Normal 11.5 - 14.5 [facility] Comment on above: Performed By: #### C BCDF ####[facility] [place] [address] Hematocrit Auto Volume Fraction (Bld) 45.4 % Normal 41.0 - 52.0 [facility] Comment on above: Performed By: #### C BCDF ####[facility] [place] [address] Hemoglobin mass conc (Bld) 13.5 g/dL Normal 13.5 - 17.5 [facility] Comment on above: Performed By: #### C BCDF ####[facility] [place] [address] Lymphocytes Auto #/vol (Bld) 3.98 10*3/uL Normal 1.20 - 4.80 [facility] Comment on above: Performed By: #### C BCDF ####[facility] [place] [address] Lymphocytes/100 WBC Auto (Bld) 26.9 % Normal 13.0 - 44.0 [facility] Comment on above: Performed By: #### C BCDF ####[facility] [place] [address] MCHC Auto mass conc (RBC) 29.7 g/dL Low 32.0 - 36.0 [facility] Comment on above: Performed By: #### C BCDF ####[facility] [place] [address] MCV Auto Entitic volume (RBC) 97 fL Normal 80 - 100 [facility] Comment on above: Performed By: #### C BCDF ####[facility] [place] [address] Monocytes Auto #/vol (Bld) 0.61 10*3/uL Normal 0.10 - 1.00 [facility] Comment on above: Performed By: #### C BCDF ####[facility] [place] [address] Monocytes/100 WBC Auto (Bld) 4.1 % Normal 2.0 - 10.0 [facility] Comment on above: Performed By: #### C BCDF ####[facility] [place] [address] Neutrophils Auto #/vol (Bld) 9.77 10*3/uL High 1.20 - 7.70 [facility] Comment on above: Performed By: #### C BCDF ####[facility] [place] [address] Nucleated RBC/100 WBC Ratio (Bld) 0.0 /100 WBC Normal 0.0-0.0 [facility] Comment on above: Performed By: #### C BCDF ####[facility] [place] [address] Platelets Auto #/vol (Bld) 330 10*3/uL Normal 150 - 450 [facility] Comment on above: Performed By: #### C BCDF ####[facility] [place] [address] RBC Auto #/vol (Bld) 4.68 x10E12/L Normal 4.50 - 5.90 [facility] Comment on above: Performed By: #### C BCDF ####[facility] [place] [address] WBC Auto #/vol (Bld) 14.8 10*3/uL High 4.4 - 11.3 [facility] Comment on above: Performed By: #### C BCDF ####[facility] [place] [address] CREATININEon 05-18-2017 Creatinine mass conc 1.16 mg/dL Normal 0.50 - 1.30 [facility] Comment on above: Performed By: #### C REAT ####[facility] [place] [address] GFR- AM. >60 Normal >60 [facility] Comment on above: Result Comment: CALC ULATIONS OF ESTIMATED GFR ARE PERFORMED USING THE MDRD STUDY EQUATION FOR THE IDMS-TRACEABLE CREATININE METHODS. CLIN CHEM 2007;53:766-72 Performed By: #### C REAT ####[facility] [place] [address] GFR-NON AM. >60 Normal >60 [facility] Comment on above: Performed By: #### C REAT ####[facility] [place] [address] UREA NITROGENon 05-18-2017 Urea nitrogen mass conc 18 mg/dL Normal - [facility] Comment on above: Performed By: #### U MATI ####[facility] [place] [address] Vital Signs Date Time Vital Sign Value Performing Clinician Faci lity 07-29-2023 07:59-0500 Heart rate 89 /min DR LES RINCON MD [address] [place] [address] 07-29-2023 06:36-0500 Blood Pressure Cuff Size DR LES RINCON MD [address] [place] [address] 07-29-2023 06:36-[address] LES RINCON MD [address] 07-29-2023 06:36-[address] LES RINCON MD [address] [place] [address] 07-29-2023 06:36-0500 Body temperature 97.52 [degF] DR LES RINCON MD [address] 07-29-2023 06:36-0500 Diastolic Blood Pressure Non-Invasive 77 mm[Hg] DR LES RINOCN MD [address] 07-29-2023 06:36-0500 Heart rate 60 /min DR LES RINCON MD [address] [place] [address] 07-29-2023 06:36-0500 Respiratory rate 20 /min DR LES RINCON MD [address] [place] [address] 07-29-2023 06:36-0500 Systolic Blood Pressure Non-Invasive 148 mm[Hg] DR LES RINCON MD [address] 07-28-2023 23:03-0500 Blood Pressure Cuff Size DR LES RINCON MD [address] [place] [address] 07-28-2023 23:03-[address] LES RINCON MD [facility] 07-28-2023 23:03-[address] LES RINCON MD [address] [place] [address] 07-28-2023 23:03-0500 Body temperature 97.88 [degF] DR LES RINCON MD [address] [place] [address] 07-28-2023 23:03-0500 Diastolic Blood Pressure Non-Invasive 60 mm[Hg] DR LES RINCON MD [address] [place] [address] 07-28-2023 23:03-0500 Heart rate 68 /min DR LES RINCON MD [address] [place] [address] 07-28-2023 23:03-0500 Respiratory rate 20 /min DR LES RINCON MD [address] [place] [address] 07-28-2023 23:03-0500 Systolic Blood Pressure Non-Invasive 149 mm[Hg] DR LES RINCON MD [address] [place] [address] 07-28-2023 21:22-0500 Heart rate 64 /min DR LES RINCON MD [address] 07-28-2023 15:49-0500 Body temperature 97.16 [degF] DR LES RINCON MD [address] 07-28-2023 15:49-0500 Diastolic Blood Pressure Non-Invasive 73 mm[Hg] DR LES RINCON MD [address] [place] [address] 07-28-2023 15:49-0500 Heart rate 88 /min DR LES RINCON MD [address] [place] [address] 07-28-2023 15:49-0500 Respiratory rate 18 /min DR LES RINCON MD [address] [place] [address] 07-28-2023 15:49-0500 Systolic Blood Pressure Non-Invasive 115 mm[Hg] DR LES RINCON MD [address] [place] [address] 07-28-2023 10:05-0500 Heart rate 82 /min DR LES RINCON MD [address] [place] [address] 07-27-2023 02:43-0500 Reason For Taking VItal Signs DR LES RINCON MD [address] [place] [address] 07-26-2023 22:46-0500 Reason For Taking VItal Signs DR LES RINCON MD [address] [place] [address] 07-26-2023 15:22-0500 Blood Pressure Cuff Size DR LES RINCON MD [address] [place] [address] 07-26-2023 15:22-[address] LES RINCON MD [address] [place] [address] 07-26-2023 15:22-[address] LES RINCON MD [address] [place] [address] 07-26-2023 15:22-0500 Heart rate 78 /min DR LES RINCON MD [address] [place] [address] 07-26-2023 06:44-0500 Body weight 203.[address] LES RINCON MD [address] [place] [address] 07-23-2023 08:23-0500 Body height 185.[address] LES RINCON MD [address] [place] [address] 07-23-2023 08:23-0500 Body weight 194.[address] LES RINCON MD [address] [place] [address] 07-23-2023 08:23-0500 Body weight 56.58 kg/m2 DR LES RINCON MD [address] [place] [address] 07-23-2023 05:27-0500 Heart rate 106 /min DR LES RINCON MD [address] [place] [address] 07-23-2023 03:43-0500 Heart rate 101 /min DR LES RINCON MD [address] [place] [address] 07-22-2023 20:51-0500 Mean blood pressure 108 mm[Hg] DR LES RINCON MD [address] [place] [address]-30-2023 12:02-0500 Heart rate 87 /min DINA OLIVIER MD [address] [place] [address] 07-02-2023 12:02-0500 Reason For Taking VItal Signs DINA OLIVIER MD [address] [place] [address] 07-02-2023 10:46-0500 Heart rate 73 /min DINA OLIVIER MD [address] [place] [address] 07-02-2023 10:46-0500 Respiratory rate 18 /min DINA OLIVIER MD [address] [place] [address] 10:14-0500 Blood Pressure Cuff Size DINA OLIVIER MD [address] [place] [address] 07-02-2023 10:14-0500 Blood Pressure Location DINA OLIVIER MD [address] [place] [address] 07-02-2023 10:14-0500 Blood Pressure Method DINA OLIVIER MD [address] 07-02-2023 10:14-0500 Body temperature 98.24 [degF] DINA OLIVIER MD [address] [place] [address] 07-02-2023 10:14-0500 Diastolic Blood Pressure Non-Invasive 76 mm[Hg] DINA OLIVIER MD [address] [place] [address] 07-02-2023 10:14-0500 Heart rate 71 /min DINA OLIVIER MD [address] 07-02-2023 10:14-0500 Reason For Taking VItal Signs DINA OLIVIER MD [address] 07-02-2023 10:14-0500 Respiratory rate 20 /min DINA OLIVIER MD [address] [place] [address] 07-02-2023 10:14-0500 Systolic Blood Pressure Non-Invasive 118 mm[Hg] DINA OLIVIER MD [address] [place] [address] 07-02-2023 08:32-0500 Heart rate 94 /min DINA OLIVIER MD [address] [place] [address] 07-02-2023 08:32-0500 Reason For Taking VItal Signs DINA OLIVIER MD [address] [place] [address] 07-02-2023 08:22-0500 Heart rate 89 /min DINA OLIVIER MD [address] [place] [address] 07-02-2023 07:33-0500 Blood Pressure Cuff Size DINA OLIVIER MD [address] [place] [address] 07-02-2023 07:33-0500 Blood Pressure Location DINA OLIVIER MD [address] [place] [address] 07-02-2023 07:33-0500 Blood Pressure Method DINA OLIVIER MD [address] [place] [address] 07-02-2023 07:33-0500 Body temperature 97.7 [degF] DINA OLIVIER MD [address] [place] [address] 07-02-2023 07:33-0500 Diastolic Blood Pressure Non-Invasive 84 mm[Hg] DINA OLIVIER MD [address] [place] [address] 07-02-2023 07:33-0500 Respiratory rate 20 /min DINA OLIVIER MD [address] [place] [address] 07-02-2023 07:33-0500 Systolic Blood Pressure Non-Invasive 132 mm[Hg] DINA OLIVIER MD [address] [place] [address] 07-02-2023 07:00-0500 Heart rate 67 /min DINA OLIVIER MD [address] [place] [address] 07-02-2023 06:57-0500 SaO2% (BldA) [Mass fraction] 95.4 % DINA OLIVIER MD [facility] 07-02-2023 04:48-0500 Diastolic Blood Pressure Non-Invasive 68 mm[Hg] DINA OLIVIER MD [address] [place] [address]-30-2023 04:48-0500 Systolic Blood Pressure Non-Invasive 146 mm[Hg] DINA OLIVIER MD [address] [place] [address] 07-01-2023 23:10-0500 Blood Pressure Cuff Size DINA OLIVIER MD [address] [place] [address] 07-01-2023 23:10-0500 Blood Pressure Location DINA OLIVIER MD [address] [place] [address] 07-01-2023 23:10-0500 Blood Pressure Method DINA OLIVIER MD [address] [place] [address] 07-01-2023 23:10-0500 Body temperature 97.88 [degF] DINA OLIVIER MD [address] [place] [address] 07-01-2023 16:45-0500 Heart rate 67 /min DINA OLIVIER MD [address] [place] [address] 07-01-2023 15:28-0500 Heart rate 69 /min DINA OLIVIER MD [address] [place] [address] 07-01-2023 10:50-0500 Body temperature 96.98 [degF] DINA OLIVIER MD [address] [place] [address] 07-01-2023 07:46-0500 Heart rate 67 /min DINA OLIVIER MD [address] [place] [address] 06-30-2023 23:42-0500 Mean blood pressure 157 mm[Hg] DINA OLIVIER MD [address] [place] [address] 06-30-2023 15:07-0500 Mean blood pressure 83 mm[Hg] DINA OLIVIER MD [address] [place] [address] 06-30-2023 08:04-0500 Body weight 196.2 kg DINA OLIVIER MD [address] [place] [address] 06-30-2023 04:09-0500 Mean blood pressure 92 mm[Hg] DINA OLIVIER MD [address] [place] [address]-27-2023 14:12-0500 SaO2% (BldA) [Mass fraction] 97.8 % DINA OLIVIER MD [facility] 06-29-2023 12:05-0500 SaO2% (BldA) [Mass fraction] 89.1 % DINA OLIVIER MD [facility] 06-29-2023 10:00-0500 Body temperature 97.16 [degF] DINA OLIVIER MD [address] [place] [address] 06-29-2023 09:50-0500 Respiratory Rate - Anes 31 br/min DINA OLIVIER MD [address] [place] [address] 06-29-2023 09:47-0500 Respiratory Rate - Anes 23 br/min DINA OLIVIER MD [address] [place] [address] 06-29-2023 09:46-0500 Respiratory Rate - Anes 21 br/min DINA OLIVIER MD [address] [place] [address] 06-29-2023 09:45-0500 Body temperature 97.7 [degF] DINA OLIVIER MD [address] [place] [address] 06-29-2023 09:30-0500 Body temperature 97.7 [degF] DINA OLIVIER MD [address] [place] [address] 06-29-2023 09:15-0500 Body temperature 97.7 [degF] DINA OLIVIER MD [address] [place] [address] 06-28-2023 03:00-0500 Body height 186 cm DINA OLIVIER MD [address] [place] [address] 06-28-2023 03:00-0500 Body weight 194.1 kg DINA OLIVIER MD [address] [place] [address] 06-28-2023 03:00-0500 Body weight 56.1 kg/m2 DINA OLIVIER MD [address] [place] [address] 04-20-2023 17:08-0400 Body temperature 99.81 [degF] Lacey Hernandez RN Work Phone: [facility] 04-20-2023 17:08-0400 Diastolic blood pressure 50 mm[Hg] Lacey Hernandez RN Work Phone: [facility] 04-20-2023 17:08-0400 Heart rate 101 /min Lacey Hernandez RN Work Phone: [facility] 04-20-2023 17:08-0400 Respiratory rate 18 /min Lacey Hernandez RN Work Phone: [facility] 04-20-2023 17:08-0400 SaO2% (BldA) [Mass fraction] 93 % Lacey Hernandez RN Work Phone: [facility] 04-20-2023 17:08-0400 Systolic blood pressure 92 mm[Hg] Lacey Hernandez RN Work Phone: [facility] 04-19-2023 11:19-0400 Diastolic blood pressure 68 mm[Hg] Mely Roblero RN Work Phone: [facility] 04-19-2023 11:19-0400 Heart rate 80 /min Mely Roblero RN Work Phone: [facility] 04-19-2023 11:19-0400 Respiratory rate 20 /min Mely Roblero RN Work Phone: [facility] 04-19-2023 11:19-0400 SaO2% (BldA) [Mass fraction] 98 % Mely Roblero RN Work Phone: [facility] 04-19-2023 11:19-0400 Systolic blood pressure 128 mm[Hg] Mely Roblero RN Work Phone: [facility] 04-15-2023 12:39-0400 Respiratory rate 20 /min Mely Roblero RN Work Phone: [facility] 04-14-2023 13:06-0400 Body temperature 97.9 [degF] Kaitlin Paco OT/L Work Phone: [facility] 04-14-2023 13:06-0400 Diastolic blood pressure 70 mm[Hg] Kaitlin Paco OT/L Work Phone: [facility] 04-14-2023 13:06-0400 Heart rate 71 /min Kaitlin Paco OT/L Work Phone: [facility] 04-14-2023 13:06-0400 Respiratory rate 18 /min Kaitlin Paco OT/L Work Phone: [facility] 04-14-2023 13:06-0400 SaO2% (BldA) [Mass fraction] 97 % Kaitlin Paco OT/L Work Phone: [facility] 04-14-2023 13:06-0400 Systolic blood pressure 130 mm[Hg] Kaitlin Paco OT/L Work Phone: [facility] 04-13-2023 08:31-0400 Body weight 205.48 kg Mely Roblero RN Work Phone: [facility] 04-13-2023 08:31-0400 Diastolic blood pressure 76 mm[Hg] Mely Roblero RN Work Phone: [facility] 04-13-2023 08:31-0400 Heart rate 83 /min Mely Roblero RN Work Phone: [facility] 04-13-2023 08:31-0400 Respiratory rate 20 /min Mely Roblero RN Work Phone: [facility] 04-13-2023 08:31-0400 SaO2% (BldA) [Mass fraction] 95 % Mely Roblero RN Work Phone: [facility] 04-13-2023 08:31-0400 Systolic blood pressure 142 mm[Hg] Mely Roblero RN Work Phone: [facility] 04-10-2023 12:55-0400 Heart rate 74 /min Nevaeh Moser ARREDONDO/L Work Phone: [facility] 04-10-2023 12:55-0400 SaO2% (BldA) [Mass fraction] 96 % Nevaeh Moser ARREDONDO/L Work Phone: [facility] 04-10-2023 12:29-0400 Body temperature 97.5 [degF] Nevaeh Doshines ARREDONDO/L Work Phone: [facility] 04-10-2023 12:29-0400 Diastolic blood pressure 78 mm[Hg] Nevaeh Moser ARREDONDO/L Work Phone: [facility] 04-10-2023 12:29-0400 Respiratory rate 20 /min Nevaeh Doshines ARREDONDO/L Work Phone: [facility] 04-10-2023 12:29-0400 Systolic blood pressure 118 mm[Hg] Nevaeh Doshines ARREDONDO/L Work Phone: [facility] 04-07-2023 08:33-0400 Body temperature 97.7 [degF] Mely Roblero RN Work Phone: [facility] 04-07-2023 08:33-0400 Diastolic blood pressure 72 mm[Hg] Mely Roblero RN Work Phone: [facility] 04-07-2023 08:33-0400 Heart rate 75 /min Mely Roblero RN Work Phone: [facility] 04-07-2023 08:33-0400 Respiratory rate 20 /min Mely Roblero RN Work Phone: [facility] 04-07-2023 08:33-0400 SaO2% (BldA) [Mass fraction] 98 % Mely Roblero RN Work Phone: [facility] 04-07-2023 08:33-0400 Systolic blood pressure 118 mm[Hg] Mely Roblero RN Work Phone: [facility] 04-02-2023 08:56-0400 Body temperature 99.7 [degF] Mely Roblero RN Work Phone: [facility] 04-02-2023 08:56-0400 Diastolic blood pressure 70 mm[Hg] Mely Roblero RN Work Phone: [facility] 04-02-2023 08:56-0400 Heart rate 82 /min Mely Roblero RN Work Phone: [facility] 04-02-2023 08:56-0400 Respiratory rate 20 /min Mely Roblero RN Work Phone: [facility] 04-02-2023 08:56-0400 SaO2% (BldA) [Mass fraction] 97 % Mely Roblero RN Work Phone: [facility] 04-02-2023 08:56-0400 Systolic blood pressure 130 mm[Hg] Mely Roblero RN Work Phone: [facility] 04-01-2023 10:32-0400 Diastolic blood pressure 68 mm[Hg] Fabienne Gerstenslager OT Work Phone: [facility] 04-01-2023 10:32-0400 Heart rate 84 /min Fabienne Gerstenslager O T Work Phone: [facility] 04-01-2023 10:32-0400 SaO2% (BldA) [Mass fraction] 95 % Fabienne Gerstenslager OT Work Phone: [facility] 04-01-2023 10:32-0400 Systolic blood pressure 118 mm[Hg] Fabienne Gerstenslager OT Work Phone: [facility] 04-01-2023 09:50-0400 Body temperature 98.2 [degF] Fabienne Gerstenslager O T Work Phone: [facility] 03-30-2023 14:38-0400 Body temperature 97.9 [degF] Mely Roblero RN Work Phone: [facility] 03-30-2023 14:38-0400 Diastolic blood pressure 70 mm[Hg] Mely Roblero RN Work Phone: [facility] 03-30-2023 14:38-0400 Heart rate 78 /min Mely Roblero RN Work Phone: [facility] 03-30-2023 14:38-0400 Respiratory rate 22 /min Mely Roblero RN Work Phone: [facility] 03-30-2023 14:38-0400 SaO2% (BldA) [Mass fraction] 98 % Mely Roblero RN Work Phone: [facility] 03-30-2023 14:38-0400 Systolic blood pressure 142 mm[Hg] Mely Roblero RN Work Phone: [facility] 03-26-2023 10:30-0400 Respiratory rate 22 /min Mely Roblero RN Work Phone: [facility] 03-24-2023 08:24-0400 Body temperature 98.4 [degF] Mely Roblero RN Work Phone: [facility] 03-24-2023 08:24-0400 Diastolic blood pressure 82 mm[Hg] Mely Roblero RN Work Phone: [facility] 03-24-2023 08:24-0400 Heart rate 86 /min Mely Roblero RN Work Phone: [facility] 03-24-2023 08:24-0400 Respiratory rate 20 /min Mely Roblero RN Work Phone: [facility] 03-24-2023 08:24-0400 SaO2% (BldA) [Mass fraction] 96 % Mely Roblero RN Work Phone: [facility] 03-24-2023 08:24-0400 Systolic blood pressure 128 mm[Hg] Mely Roblero RN Work Phone: [facility] 03-21-2023 08:48-0400 Body temperature 97.59 [degF] Mely Roblero RN Work Phone: [facility] 03-21-2023 08:48-0400 Diastolic blood pressure 88 mm[Hg] Mely Roblero RN Work Phone: [facility] 03-21-2023 08:48-0400 Heart rate 91 /min Mely Roblero RN Work Phone: [facility] 03-21-2023 08:48-0400 Respiratory rate 20 /min Mely Roblero RN Work Phone: [facility] 03-21-2023 08:48-0400 SaO2% (BldA) [Mass fraction] 95 % Mely Roblero RN Work Phone: [facility] 03-21-2023 08:48-0400 Systolic blood pressure 138 mm[Hg] Mely Roblero RN Work Phone: [facility] 03-20-2023 13:48-0400 Diastolic blood pressure 76 mm[Hg] Mely Roblero RN Work Phone: [facility] 03-20-2023 13:48-0400 Heart rate 86 /min Mely Roblero RN Work Phone: [facility] 03-20-2023 13:48-0400 Respiratory rate 22 /min Meyl Roblero RN Work Phone: [facility] 03-20-2023 13:48-0400 SaO2% (BldA) [Mass fraction] 96 % Mely Roblero RN Work Phone: [facility] 03-20-2023 13:48-0400 Systolic blood pressure 138 mm[Hg] Mely Roblero RN Work Phone: [facility] 03-17-2023 09:32-0400 Respiratory rate 22 /min Mely Roblero RN Work Phone: [facility] 03-12-2023 10:01-0400 Body temperature 98.01 [degF] Mely Roblero RN Work Phone: [facility] 03-12-2023 10:01-0400 Diastolic blood pressure 78 mm[Hg] Mely Roblero RN Work Phone: [facility] 08-10-2023 10:01-0400 Heart rate 94 /min Mely Roblero RN Work Phone: [facility] 03-12-2023 10:01-0400 Respiratory rate 20 /min Mely Roblero RN Work Phone: [facility] 03-12-2023 10:01-0400 SaO2% (BldA) [Mass fraction] 96 % Mely Roblero RN Work Phone: [facility] 03-12-2023 10:01-0400 Systolic blood pressure 132 mm[Hg] Mely Roblero RN Work Phone: [facility] 03-10-2023 08:42-0400 Diastolic blood pressure 80 mm[Hg] Mely Roblero RN Work Phone: [facility] 03-10-2023 08:42-0400 Heart rate 93 /min Mely Roblero RN Work Phone: [facility] 03-10-2023 08:42-0400 Respiratory rate 20 /min Mely Roblero RN Work Phone: [facility] 03-10-2023 08:42-0400 SaO2% (BldA) [Mass fraction] 95 % Mely Roblero RN Work Phone: [facility] 03-10-2023 08:42-0400 Systolic blood pressure 152 mm[Hg] Mely Roblero RN Work Phone: [facility] 03-09-2023 10:04-0400 Body temperature 98.29 [degF] Mely Roblero RN Work Phone: [facility] 03-09-2023 10:04-0400 Diastolic blood pressure 82 mm[Hg] Mely Roblero RN Work Phone: [facility] 03-09-2023 10:04-0400 Heart rate 60 /min Mely Roblero RN Work Phone: [facility] 03-09-2023 10:04-0400 Respiratory rate 18 /min Mely Roblero RN Work Phone: [facility] 03-09-2023 10:04-0400 SaO2% (BldA) [Mass fraction] 98 % Mely Roblero RN Work Phone: [facility] 03-09-2023 10:04-0400 Systolic blood pressure 132 mm[Hg] Mely Roblero RN Work Phone: [facility] 03-04-2023 11:06-0400 Body temperature 98.2 [degF] Marley Arevalo RN Work Phone: [facility] 03-04-2023 11:06-0400 Diastolic blood pressure 80 mm[Hg] Marleytrina Arevalo RN Work Phone: [facility] 03-04-2023 11:06-0400 Heart rate 84 /min Marleytrina Arevalo RN Work Phone: [facility] 03-04-2023 11:06-0400 Respiratory rate 18 /min Marley Arevalo RN Work Phone: [facility] 03-04-2023 11:06-0400 SaO2% (BldA) [Mass fraction] 94 % Marleytrina Arevalo RN Work Phone: [facility] 03-04-2023 11:06-0400 Systolic blood pressure 128 mm[Hg] Marley Grage RN Work Phone: [facility] 02-26-2023 08:30-0400 Body temperature 97.9 [degF] Mely Roblero RN Work Phone: [facility] 02-26-2023 08:30-0400 Diastolic blood pressure 88 mm[Hg] Mely Roblero RN Work Phone: [facility] 02-26-2023 08:30-0400 Heart rate 88 /min Mely Roblero RN Work Phone: [facility] 02-26-2023 08:30-0400 Respiratory rate 20 /min Mely Roblero RN Work Phone: [facility] 02-26-2023 08:30-0400 SaO2% (BldA) [Mass fraction] 92 % Mely Roblero RN Work Phone: [facility] 02-26-2023 08:30-0400 Systolic blood pressure 148 mm[Hg] Mely Roblero RN Work Phone: [facility] 02-16-2023 10:09-0400 Diastolic blood pressure 82 mm[Hg] Mely Roblero RN Work Phone: [facility] 02-16-2023 10:09-0400 Heart rate 86 /min Mely Roblero RN Work Phone: [facility] 02-16-2023 10:09-0400 Respiratory rate 20 /min Mely Roblero RN Work Phone: [facility] 02-16-2023 10:09-0400 SaO2% (BldA) [Mass fraction] 96 % Mely Roblero RN Work Phone: [facility] 02-16-2023 10:09-0400 Systolic blood pressure 130 mm[Hg] Mely Roblero RN Work Phone: [facility] 02-13-2023 09:22-0400 Diastolic blood pressure 88 mm[Hg] Mely Roblero RN Work Phone: [facility] 02-13-2023 09:22-0400 Heart rate 78 /min Mely Roblero RN Work Phone: [facility] 02-13-2023 09:22-0400 Respiratory rate 20 /min Mely Roblero RN Work Phone: [facility] 02-13-2023 09:22-0400 SaO2% (BldA) [Mass fraction] 98 % Mely Roblero RN Work Phone: [facility] 02-13-2023 09:22-0400 Systolic blood pressure 142 mm[Hg] Mely Roblero RN Work Phone: [facility] 02-11-2023 11:32-0400 Diastolic blood pressure 78 mm[Hg] Mely Roblero RN Work Phone: [facility] 02-11-2023 11:32-0400 Heart rate 82 /min Mely Roblero RN Work Phone: [facility] 02-11-2023 11:32-0400 Respiratory rate 22 /min Mely Roblero RN Work Phone: [facility] 02-11-2023 11:32-0400 SaO2% (BldA) [Mass fraction] 94 % Mely Roblero RN Work Phone: [facility] 02-11-2023 11:32-0400 Systolic blood pressure 138 mm[Hg] Mely Roblero RN Work Phone: [facility] 02-09-2023 11:47-0400 Body temperature 98.2 [degF] Mely Roblero RN Work Phone: [facility] 02-09-2023 11:47-0400 Diastolic blood pressure 88 mm[Hg] Mely Roblero RN Work Phone: [facility] 02-09-2023 11:47-0400 Heart rate 86 /min Mely Roblero RN Work Phone: [facility] 02-09-2023 11:47-0400 Respiratory rate 20 /min Mely Roblero RN Work Phone: [facility] 02-09-2023 11:47-0400 SaO2% (BldA) [Mass fraction] 93 % Mely Roblero RN Work Phone: [facility] 02-09-2023 11:47-0400 Systolic blood pressure 132 mm[Hg] Mely Roblero RN Work Phone: [facility] 02-05-2023 10:30-0400 Body temperature 97.9 [degF] Mely Roblero RN Work Phone: [facility] 02-05-2023 10:30-0400 Diastolic blood pressure 59 mm[Hg] Mely Roblero RN Work Phone: [facility] 02-05-2023 10:30-0400 Heart rate 80 /min Mely Roblero RN Work Phone: [facility] 02-05-2023 10:30-0400 Respiratory rate 20 /min Mely Roblero RN Work Phone: [facility] 02-05-2023 10:30-0400 SaO2% (BldA) [Mass fraction] 94 % Mely Roblero RN Work Phone: [facility] 02-05-2023 10:30-0400 Systolic blood pressure 96 mm[Hg] Mely Roblero RN Work Phone: [facility] 02-04-2023 08:17-0400 Body temperature 97.9 [degF] Mely Roblero RN Work Phone: [facility] 02-04-2023 08:17-0400 Diastolic blood pressure 74 mm[Hg] Mely Roblero RN Work Phone: [facility] 02-04-2023 08:17-0400 Heart rate 66 /min Mely Roblero RN Work Phone: [facility] 02-04-2023 08:17-0400 Respiratory rate 20 /min Mely Roblero RN Work Phone: [facility] 02-04-2023 08:17-0400 SaO2% (BldA) [Mass fraction] 92 % Mely Roblero RN Work Phone: [facility] 02-04-2023 08:17-0400 Systolic blood pressure 130 mm[Hg] Mely Roblero RN Work Phone: [facility] 02-02-2023 10:15-0400 Body temperature 98.4 [degF] Mely Roblero RN Work Phone: [facility] 02-02-2023 10:15-0400 Diastolic blood pressure 80 mm[Hg] Mely Roblero RN Work Phone: [facility] 02-02-2023 10:15-0400 Heart rate 80 /min Mely Roblero RN Work Phone: [facility] 02-02-2023 10:15-0400 Respiratory rate 20 /min Mely Roblero RN Work Phone: [facility] 02-02-2023 10:15-0400 SaO2% (BldA) [Mass fraction] 94 % Mely Roblero RN Work Phone: [facility] 02-02-2023 10:15-0400 Systolic blood pressure 142 mm[Hg] Mely Roblero RN Work Phone: [facility] 01-28-2023 08:36-0400 Diastolic blood pressure 76 mm[Hg] Mely Roblero RN Work Phone: [facility] 01-28-2023 08:36-0400 Heart rate 87 /min Mely Roblero RN Work Phone: [facility] 01-28-2023 08:36-0400 Respiratory rate 20 /min Mely Roblero RN Work Phone: [facility] 01-28-2023 08:36-0400 SaO2% (BldA) [Mass fraction] 94 % Mely Roblero RN Work Phone: [facility] 01-28-2023 08:36-0400 Systolic blood pressure 128 mm[Hg] Mely Roblero RN Work Phone: [facility] 01-19-2023 13:17-0400 Respiratory rate 18 /min Mely Roblero RN Work Phone: [facility] 01-16-2023 07:29-0400 Body temperature 97.81 [degF] Mely Roblero RN Work Phone: [facility] 01-16-2023 07:29-0400 Diastolic blood pressure 76 mm[Hg] Mely Roblero RN Work Phone: [facility] 01-16-2023 07:29-0400 Heart rate 88 /min Mely Roblero RN Work Phone: [facility] 01-16-2023 07:29-0400 Respiratory rate 18 /min Mely Roblero RN Work Phone: [facility] 01-16-2023 07:29-0400 SaO2% (BldA) [Mass fraction] 93 % Mely Roblero RN Work Phone: [facility] 01-16-2023 07:29-0400 Systolic blood pressure 138 mm[Hg] Mely Roblero RN Work Phone: [facility] 01-14-2023 07:12-0400 Body temperature 98.4 [degF] Mely Roblero RN Work Phone: [facility] 01-14-2023 07:12-0400 Diastolic blood pressure 80 mm[Hg] Mely Roblero RN Work Phone: [facility] 01-14-2023 07:12-0400 Heart rate 83 /min Mely Roblero RN Work Phone: [facility] 01-14-2023 07:12-0400 Respiratory rate 22 /min Mely Roblero RN Work Phone: [facility] 01-14-2023 07:12-0400 SaO2% (BldA) [Mass fraction] 93 % Mely Roblero RN Work Phone: [facility] 01-14-2023 07:12-0400 Systolic blood pressure 144 mm[Hg] Mely Roblero RN Work Phone: [facility] 01-07-2023 09:45-0400 Body temperature 97.59 [degF] Cathy Most RN Work Phone: [facility] 01-07-2023 09:45-0400 Diastolic blood pressure 84 mm[Hg] Cathy Most RN Work Phone: [facility] 01-07-2023 09:45-0400 Heart rate 88 /min Cathy Most RN Work Phone: [facility] 01-07-2023 09:45-0400 Respiratory rate 20 /min Cathy Most RN Work Phone: [facility] 01-07-2023 09:45-0400 SaO2% (BldA) [Mass fraction] 95 % Cathy Most RN Work Phone: [facility] 01-07-2023 09:45-0400 Systolic blood pressure 136 mm[Hg] Cathy Most RN Work Phone: [facility] 01-05-2023 13:14-0400 Body temperature 97.5 [degF] Cathy Most RN Work Phone: [facility] 01-05-2023 13:14-0400 Diastolic blood pressure 78 mm[Hg] Cathy Most RN Work Phone: [facility] 01-05-2023 13:14-0400 Heart rate 84 /min Cathy Most RN Work Phone: [facility] 01-05-2023 13:14-0400 Respiratory rate 20 /min Cathy Most RN Work Phone: [facility] 01-05-2023 13:14-0400 SaO2% (BldA) [Mass fraction] 94 % Cathy Most RN Work Phone: [facility] 01-05-2023 13:14-0400 Systolic blood pressure 126 mm[Hg] Cathy Most RN Work Phone: [facility] 12-29-2022 14:06-0400 Body temperature 98.49 [degF] Mely Roblero RN Work Phone: [facility] 12-29-2022 14:06-0400 Diastolic blood pressure 80 mm[Hg] Mely Roblero RN Work Phone: [facility] 12-29-2022 14:06-0400 Heart rate 92 /min Mely Roblero RN Work Phone: [facility] 12-29-2022 14:06-0400 Respiratory rate 18 /min Mely Roblero RN Work Phone: [facility] 12-29-2022 14:06-0400 SaO2% (BldA) [Mass fraction] 97 % Mely Roblero RN Work Phone: [facility] 12-29-2022 14:06-0400 Systolic blood pressure 148 mm[Hg] Mely Roblero RN Work Phone: [facility] 12-27-2022 07:49-0400 Body temperature 98.29 [degF] Mely Roblero RN Work Phone: [facility] 12-27-2022 07:49-0400 Diastolic blood pressure 82 mm[Hg] Mely Roblero RN Work Phone: [facility] 12-27-2022 07:49-0400 Heart rate 88 /min Emly Roblero RN Work Phone: [facility] 12-27-2022 07:49-0400 Respiratory rate 20 /min Mely Roblero RN Work Phone: [facility] 12-27-2022 07:49-0400 SaO2% (BldA) [Mass fraction] 92 % Mely Roblero RN Work Phone: [facility] 12-27-2022 07:49-0400 Systolic blood pressure 134 mm[Hg] Mely Roblero RN Work Phone: [facility] 12-15-2022 08:34-0400 Body temperature 98.01 [degF] Mely Roblero RN Work Phone: [facility] 12-15-2022 08:34-0400 Diastolic blood pressure 74 mm[Hg] Mely Roblero RN Work Phone: [facility] 12-15-2022 08:34-0400 Heart rate 86 /min Mely Roblero RN Work Phone: [facility] 12-15-2022 08:34-0400 Respiratory rate 20 /min Mely Roblero RN Work Phone: [facility] 12-15-2022 08:34-0400 SaO2% (BldA) [Mass fraction] 94 % Mely Roblero RN Work Phone: [facility] 12-15-2022 08:34-0400 Systolic blood pressure 132 mm[Hg] Mely Roblero RN Work Phone: [facility] 12-12-2022 14:13-0400 Body temperature 98.01 [degF] Mely Roblero RN Work Phone: [facility] 12-12-2022 14:13-0400 Diastolic blood pressure 76 mm[Hg] Mely Roblero RN Work Phone: [facility] 12-12-2022 14:13-0400 Heart rate 84 /min Mely Roblero RN Work Phone: [facility] 12-12-2022 14:13-0400 Respiratory rate 20 /min Mely Roblero RN Work Phone: [facility] 12-12-2022 14:13-0400 SaO2% (BldA) [Mass fraction] 91 % Mely Roblero RN Work Phone: [facility] 12-12-2022 14:13-0400 Systolic blood pressure 128 mm[Hg] Mely Roblero RN Work Phone: [facility] 12-11-2022 12:42-0400 Diastolic blood pressure 80 mm[Hg] Mely Roblero RN Work Phone: [facility] 12-11-2022 12:42-0400 Heart rate 83 /min Mely Roblero RN Work Phone: [facility] 12-11-2022 12:42-0400 Respiratory rate 22 /min Mely Roblero RN Work Phone: [facility] 12-11-2022 12:42-0400 SaO2% (BldA) [Mass fraction] 91 % Mely Roblero RN Work Phone: [facility] 12-11-2022 12:42-0400 Systolic blood pressure 126 mm[Hg] Mely Roblero RN Work Phone: [facility] 12-09-2022 13:11-0400 Heart rate 84 /min Mely Roblero RN Work Phone: [facility] 12-09-2022 13:11-0400 Respiratory rate 18 /min Mely Roblero RN Work Phone: [facility] 12-09-2022 13:11-0400 SaO2% (BldA) [Mass fraction] 92 % Mely Roblero RN Work Phone: [facility] 12-05-2022 13:41-0400 Body temperature 98.2 [degF] Mely Roblero RN Work Phone: [facility] 12-05-2022 13:41-0400 Diastolic blood pressure 76 mm[Hg] Mely Roblero RN Work Phone: [facility] 12-05-2022 13:41-0400 Heart rate 76 /min Mely Roblero RN Work Phone: [facility] 12-05-2022 13:41-0400 Respiratory rate 22 /min Mely Roblero RN Work Phone: [facility] 12-05-2022 13:41-0400 SaO2% (BldA) [Mass fraction] 92 % Mely Roblero RN Work Phone: [facility] 12-05-2022 13:41-0400 Systolic blood pressure 128 mm[Hg] Mely Roblero RN Work Phone: [facility] 12-04-2022 12:15-0400 Body temperature 98.29 [degF] Mely Roblero RN Work Phone: [facility] 12-04-2022 12:15-0400 Diastolic blood pressure 72 mm[Hg] Mely Roblero RN Work Phone: [facility] 12-04-2022 12:15-0400 Heart rate 64 /min Mely Roblero RN Work Phone: [facility] 12-04-2022 12:15-0400 Respiratory rate 18 /min Mely Roblero RN Work Phone: [facility] 12-04-2022 12:15-0400 SaO2% (BldA) [Mass fraction] 90 % Mely Roblero RN Work Phone: [facility] 12-04-2022 12:15-0400 Systolic blood pressure 128 mm[Hg] Mely Roblero RN Work Phone: [facility] 12-03-2022 13:40-0400 Heart rate 100 /min Mely Roblero RN Work Phone: [facility] 12-03-2022 13:40-0400 Respiratory rate 22 /min Mely Roblero RN Work Phone: [facility] 12-03-2022 13:40-0400 SaO2% (BldA) [Mass fraction] 93 % Mely Roblero RN Work Phone: [facility] 11-29-2022 13:34-0400 Heart rate 88 /min Mely Roblero RN Work Phone: [facility] 11-29-2022 13:34-0400 Respiratory rate 22 /min Mely Roblero RN Work Phone: [facility] 11-29-2022 13:34-0400 SaO2% (BldA) [Mass fraction] 94 % Mely Roblero RN Work Phone: [facility] 11-27-2022 13:33-0400 Respiratory rate 20 /min Mely Roblero RN Work Phone: [facility] 11-21-2022 14:56-0400 Body temperature 97.9 [degF] Mely Roblero RN Work Phone: [facility] 11-21-2022 14:56-0400 Diastolic blood pressure 72 mm[Hg] Mely Roblero RN Work Phone: [facility] 11-21-2022 14:56-0400 Heart rate 61 /min Mely Roblero RN Work Phone: [facility] 11-21-2022 14:56-0400 Respiratory rate 22 /min Mely Roblero RN Work Phone: [facility] 11-21-2022 14:56-0400 SaO2% (BldA) [Mass fraction] 96 % Mely Roblero RN Work Phone: [facility] 11-21-2022 14:56-0400 Systolic blood pressure 138 mm[Hg] Mely Roblero RN Work Phone: [facility] 11-20-2022 13:50-0400 Body weight 206.39 kg Mely Roblero RN Work Phone: [facility] 11-20-2022 13:50-0400 Diastolic blood pressure 78 mm[Hg] Mely Roblero RN Work Phone: [facility] 11-20-2022 13:50-0400 Heart rate 87 /min Mely Roblero RN Work Phone: [facility] 11-20-2022 13:50-0400 Respiratory rate 22 /min Mely Roblero RN Work Phone: [facility] 11-20-2022 13:50-0400 SaO2% (BldA) [Mass fraction] 93 % Mely Roblero RN Work Phone: [facility] 11-20-2022 13:50-0400 Systolic blood pressure 148 mm[Hg] Mely Roblero RN Work Phone: [facility] 11-17-2022 15:41-0400 Diastolic blood pressure 76 mm[Hg] Mely Roblero RN Work Phone: [facility] 11-17-2022 15:41-0400 Heart rate 78 /min Mely Roblero RN Work Phone: [facility] 11-17-2022 15:41-0400 Respiratory rate 20 /min Mely Roblero RN Work Phone: [facility] 11-17-2022 15:41-0400 SaO2% (BldA) [Mass fraction] 97 % Mely Roblero RN Work Phone: [facility] 11-17-2022 15:41-0400 Systolic blood pressure 142 mm[Hg] Mely Roblero RN Work Phone: [facility] 11-14-2022 12:53-0400 Body temperature 97.81 [degF] Mely Roblero RN Work Phone: [facility] 11-14-2022 12:53-0400 Diastolic blood pressure 78 mm[Hg] Mely Roblero RN Work Phone: [facility] 11-14-2022 12:53-0400 Heart rate 80 /min Mely Roblero RN Work Phone: [facility] 11-14-2022 12:53-0400 Respiratory rate 20 /min Mely Roblero RN Work Phone: [facility] 11-14-2022 12:53-0400 SaO2% (BldA) [Mass fraction] 94 % Mely Roblero RN Work Phone: [facility] 11-14-2022 12:53-0400 Systolic blood pressure 132 mm[Hg] Mely Roblero RN Work Phone: [facility] 11-09-2022 10:04-0400 Body temperature 97.9 [degF] Cathy Most RN Work Phone: [facility] 11-09-2022 10:04-0400 Diastolic blood pressure 80 mm[Hg] Cathy Most RN Work Phone: [facility] 11-09-2022 10:04-0400 Heart rate 80 /min Cathy Most RN Work Phone: [facility] 11-09-2022 10:04-0400 Respiratory rate 20 /min Cathy Most RN Work Phone: [facility] 11-09-2022 10:04-0400 SaO2% (BldA) [Mass fraction] 96 % Cathy Most RN Work Phone: [facility] 11-09-2022 10:04-0400 Systolic blood pressure 124 mm[Hg] Cathy Most RN Work Phone: [facility] 11-06-2022 13:26-0400 Body temperature 98.01 [degF] Mely Roblero RN Work Phone: [facility] 11-06-2022 13:26-0400 Diastolic blood pressure 84 mm[Hg] Mely Roblero RN Work Phone: [facility] 11-06-2022 13:26-0400 Heart rate 82 /min Mely Roblero RN Work Phone: [facility] 11-06-2022 13:26-0400 Respiratory rate 22 /min Mely Roblero RN Work Phone: [facility] 11-06-2022 13:26-0400 SaO2% (BldA) [Mass fraction] 91 % Mely Roblero RN Work Phone: [facility] 11-06-2022 13:26-0400 Systolic blood pressure 140 mm[Hg] Mely Roblero RN Work Phone: [facility] 11-04-2022 09:31-0400 Body temperature 98.1 [degF] Cathy Most RN Work Phone: [facility] 11-04-2022 09:31-0400 Diastolic blood pressure 80 mm[Hg] Cathy Most RN Work Phone: [facility] 11-04-2022 09:31-0400 Heart rate 68 /min Cathy Most RN Work Phone: [facility] 11-04-2022 09:31-0400 Respiratory rate 20 /min Cathy Most RN Work Phone: [facility] 11-04-2022 09:31-0400 SaO2% (BldA) [Mass fraction] 99 % Cathy Most RN Work Phone: [facility] 11-04-2022 09:31-0400 Systolic blood pressure 124 mm[Hg] Cathy Most RN Work Phone: [facility] 10-31-2022 13:49-0400 Body temperature 97.9 [degF] Mely Roblero RN Work Phone: [facility] 10-31-2022 13:49-0400 Diastolic blood pressure 86 mm[Hg] Mely Roblero RN Work Phone: [facility] 10-31-2022 13:49-0400 Heart rate 93 /min Mely Roblero RN Work Phone: [facility] 10-31-2022 13:49-0400 Respiratory rate 20 /min Mely Roblero RN Work Phone: [facility] 10-31-2022 13:49-0400 SaO2% (BldA) [Mass fraction] 94 % Mely Roblero RN Work Phone: [facility] 10-31-2022 13:49-0400 Systolic blood pressure 132 mm[Hg] Mely Roblero RN Work Phone: [facility] 10-27-2022 14:30-0400 Body temperature 98.29 [degF] Mely Roblero RN Work Phone: [facility] 10-27-2022 14:30-0400 Diastolic blood pressure 88 mm[Hg] Mely Roblero RN Work Phone: [facility] 10-27-2022 14:30-0400 Heart rate 79 /min Mely Roblero RN Work Phone: [facility] 10-27-2022 14:30-0400 Respiratory rate 22 /min Mely Roblero RN Work Phone: [facility] 10-27-2022 14:30-0400 SaO2% (BldA) [Mass fraction] 95 % Mely Roblero RN Work Phone: [facility] 10-27-2022 14:30-0400 Systolic blood pressure 152 mm[Hg] Mely Roblero RN Work Phone: [facility] 10-23-2022 09:40-0400 Body temperature 97.9 [degF] Mely Roblero RN Work Phone: [facility] 10-23-2022 09:40-0400 Diastolic blood pressure 90 mm[Hg] Mely Roblero RN Work Phone: [facility] 10-23-2022 09:40-0400 Heart rate 90 /min Mely Roblero RN Work Phone: [facility] 10-23-2022 09:40-0400 Respiratory rate 22 /min Emly Roblero RN Work Phone: [facility] 10-23-2022 09:40-0400 SaO2% (BldA) [Mass fraction] 93 % Mely Roblero RN Work Phone: [facility] 10-23-2022 09:40-0400 Systolic blood pressure 152 mm[Hg] Mely Roblero RN Work Phone: [facility] 10-17-2022 13:49-0400 Body temperature 97.9 [degF] Mely Roblero RN Work Phone: [facility] 10-17-2022 13:49-0400 Diastolic blood pressure 88 mm[Hg] Mely Roblero RN Work Phone: [facility] 10-17-2022 13:49-0400 Heart rate 90 /min Mely Roblero RN Work Phone: [facility] 10-17-2022 13:49-0400 Respiratory rate 22 /min Mely Roblero RN Work Phone: [facility] 10-17-2022 13:49-0400 SaO2% (BldA) [Mass fraction] 96 % Mely Roblero RN Work Phone: [facility] 10-17-2022 13:49-0400 Systolic blood pressure 132 mm[Hg] Mely Roblero RN Work Phone: [facility] 10-13-2022 12:06-0400 Diastolic blood pressure 84 mm[Hg] Mely Roblero RN Work Phone: [facility] 10-13-2022 12:06-0400 Heart rate 90 /min Mely Roblero RN Work Phone: [facility] 10-13-2022 12:06-0400 Respiratory rate 22 /min Mely Roblero RN Work Phone: [facility] 10-13-2022 12:06-0400 SaO2% (BldA) [Mass fraction] 93 % Mely Roblero RN Work Phone: [facility] 10-13-2022 12:06-0400 Systolic blood pressure 150 mm[Hg] Mely Roblero RN Work Phone: [facility] 10-06-2022 12:55-0500 Body temperature 98.1 [degF] Cathy Most RN Work Phone: [facility] 10-06-2022 12:55-0500 Diastolic blood pressure 76 mm[Hg] Cathy Most RN Work Phone: [facility] 10-06-2022 12:55-0500 Heart rate 76 /min Cathy Most RN Work Phone: [facility] 10-06-2022 12:55-0500 Respiratory rate 16 /min Cathy Most RN Work Phone: [facility] 10-06-2022 12:55-0500 SaO2% (BldA) [Mass fraction] 97 % Cathy Most RN Work Phone: [facility] 10-06-2022 12:55-0500 Systolic blood pressure 138 mm[Hg] Cathy Most RN Work Phone: [facility] 10-03-2022 12:10-0500 Body temperature 98.2 [degF] Mely Roblero RN Work Phone: [facility] 10-03-2022 12:10-0500 Diastolic blood pressure 80 mm[Hg] Mely Roblero RN Work Phone: [facility] 10-03-2022 12:10-0500 Heart rate 84 /min Mely Roblero RN Work Phone: [facility] 10-03-2022 12:10-0500 Respiratory rate 20 /min Mely Roblero RN Work Phone: [facility] 10-03-2022 12:10-0500 SaO2% (BldA) [Mass fraction] 97 % Mely Roblero RN Work Phone: [facility] 10-03-2022 12:10-0500 Systolic blood pressure 142 mm[Hg] Mely Roblero RN Work Phone: [facility] 09-29-2022 12:58-0500 Body temperature 97.9 [degF] Mely Roblero RN Work Phone: [facility] 09-29-2022 12:58-0500 Diastolic blood pressure 82 mm[Hg] Mely Roblero RN Work Phone: [facility] 09-29-2022 12:58-0500 Heart rate 95 /min Mely Roblero RN Work Phone: [facility] 09-29-2022 12:58-0500 Respiratory rate 22 /min Mely Roblero RN Work Phone: [facility] 09-29-2022 12:58-0500 SaO2% (BldA) [Mass fraction] 98 % Mely Roblero RN Work Phone: [facility] 09-29-2022 12:58-0500 Systolic blood pressure 140 mm[Hg] Mely Roblero RN Work Phone: [facility] 09-24-2022 13:57-0500 Body temperature 97.81 [degF] Mely Roblero RN Work Phone: [facility] 09-24-2022 13:57-0500 Diastolic blood pressure 92 mm[Hg] Mely Roblero RN Work Phone: [facility] 09-24-2022 13:57-0500 Heart rate 95 /min Mely Roblero RN Work Phone: [facility] 09-24-2022 13:57-0500 Respiratory rate 20 /min Mely Roblero RN Work Phone: [facility] 09-24-2022 13:57-0500 SaO2% (BldA) [Mass fraction] 95 % Mely Roblero RN Work Phone: [facility] 09-24-2022 13:57-0500 Systolic blood pressure 144 mm[Hg] Mely Roblero RN Work Phone: [facility] 09-08-2022 12:27-0500 Body temperature 98.4 [degF] Mely Roblero RN Work Phone: [facility] 09-08-2022 12:27-0500 Diastolic blood pressure 88 mm[Hg] Mely Roblero RN Work Phone: [facility] 09-08-2022 12:27-0500 Heart rate 90 /min Mely Roblero RN Work Phone: [facility] 09-08-2022 12:27-0500 Respiratory rate 22 /min Mely Roblero RN Work Phone: [facility] 09-08-2022 12:27-0500 SaO2% (BldA) [Mass fraction] 97 % Mely Roblero RN Work Phone: [facility] 09-08-2022 12:27-0500 Systolic blood pressure 144 mm[Hg] Mely Roblero RN Work Phone: [facility] 09-05-2022 13:42-0500 Body temperature 97.7 [degF] Mely Roblero RN Work Phone: [facility] 09-05-2022 13:42-0500 Diastolic blood pressure 78 mm[Hg] Mely Roblero RN Work Phone: [facility] 09-05-2022 13:42-0500 Heart rate 80 /min Mely Roblero RN Work Phone: [facility] 09-05-2022 13:42-0500 Respiratory rate 22 /min Mely Roblero RN Work Phone: [facility] 09-05-2022 13:42-0500 SaO2% (BldA) [Mass fraction] 97 % Mely Roblero RN Work Phone: [facility] 09-05-2022 13:42-0500 Systolic blood pressure 136 mm[Hg] Mely Roblero RN Work Phone: [facility] 09-03-2022 12:10-0500 Body temperature 99.1 [degF] Mely Roblero RN Work Phone: [facility] 09-03-2022 12:10-0500 Diastolic blood pressure 76 mm[Hg] Mely Roblero RN Work Phone: [facility] 09-03-2022 12:10-0500 Heart rate 82 /min Mely Roblero RN Work Phone: [facility] 09-03-2022 12:10-0500 Respiratory rate 22 /min Mely Roblero RN Work Phone: [facility] 09-03-2022 12:10-0500 SaO2% (BldA) [Mass fraction] 97 % Mely Roblero RN Work Phone: [facility] 09-03-2022 12:10-0500 Systolic blood pressure 132 mm[Hg] Mely Roblero RN Work Phone: [facility] 09-01-2022 12:31-0500 Body temperature 98.1 [degF] Mely Roblero RN Work Phone: [facility] 09-01-2022 12:31-0500 Diastolic blood pressure 68 mm[Hg] Mely Roblero RN Work Phone: [facility] 09-01-2022 12:31-0500 Heart rate 80 /min Mely Roblero RN Work Phone: [facility] 09-01-2022 12:31-0500 Respiratory rate 22 /min Mely Roblero RN Work Phone: [facility] 09-01-2022 12:31-0500 SaO2% (BldA) [Mass fraction] 96 % Mely Roblero RN Work Phone: [facility] 09-01-2022 12:31-0500 Systolic blood pressure 132 mm[Hg] Mely Roblero RN Work Phone: [facility] 08-30-2022 09:52-0500 Body temperature 97.7 [degF] Jerrica Thakkar RN Work Phone: [facility] 08-30-2022 09:52-0500 Diastolic blood pressure 64 mm[Hg] Jerrica Thakkar RN Work Phone: [facility] 08-30-2022 09:52-0500 Heart rate 79 /min Jerrica Thakkar RN Work Phone: [facility] 08-30-2022 09:52-0500 Respiratory rate 18 /min Jerrica Thakkar RN Work Phone: [facility] 08-30-2022 09:52-0500 SaO2% (BldA) [Mass fraction] 94 % Jerrica Thakkar RN Work Phone: [facility] 08-30-2022 09:52-0500 Systolic blood pressure 130 mm[Hg] Jerrica Thakkar RN Work Phone: [facility] 08-28-2022 15:12-0500 Body temperature 98.01 [degF] Mely Roblero RN Work Phone: [facility] 08-28-2022 15:12-0500 Diastolic blood pressure 84 mm[Hg] Mely Roblero RN Work Phone: [facility] 08-28-2022 15:12-0500 Heart rate 92 /min Mely Roblero RN Work Phone: [facility] 08-28-2022 15:12-0500 Respiratory rate 22 /min Mely Roblero RN Work Phone: [facility] 08-28-2022 15:12-0500 SaO2% (BldA) [Mass fraction] 99 % Mely Roblero RN Work Phone: [facility] 08-28-2022 15:12-0500 Systolic blood pressure 132 mm[Hg] Mely Roblero RN Work Phone: [facility] 08-25-2022 12:59-0500 Body temperature 98.91 [degF] Mely Roblero RN Work Phone: [facility] 08-25-2022 12:59-0500 Diastolic blood pressure 78 mm[Hg] Mely Roblero RN Work Phone: [facility] 08-25-2022 12:59-0500 Heart rate 80 /min Mely Roblero RN Work Phone: [facility] 08-25-2022 12:59-0500 Respiratory rate 22 /min Mely Roblero RN Work Phone: [facility] 08-25-2022 12:59-0500 SaO2% (BldA) [Mass fraction] 96 % Mely Roblero RN Work Phone: [facility] 08-25-2022 12:59-0500 Systolic blood pressure 132 mm[Hg] Mely Roblero RN Work Phone: [facility] 08-22-2022 12:10-0500 Body temperature 97.9 [degF] Cathy Most RN Work Phone: [facility] 08-22-2022 12:10-0500 Diastolic blood pressure 66 mm[Hg] Cathy Most RN Work Phone: [facility] 08-22-2022 12:10-0500 Heart rate 84 /min Cathy Most RN Work Phone: [facility] 08-22-2022 12:10-0500 Respiratory rate 16 /min Cathy Most RN Work Phone: [facility] 08-22-2022 12:10-0500 SaO2% (BldA) [Mass fraction] 98 % Cathy Most RN Work Phone: [facility] 08-22-2022 12:10-0500 Systolic blood pressure 132 mm[Hg] Cathy Most RN Work Phone: [facility] 08-20-2022 11:14-0500 Body temperature 98.01 [degF] Christine Collazo RN Work Phone: [facility] 08-20-2022 11:14-0500 Diastolic blood pressure 70 mm[Hg] Christine Collazo RN Work Phone: [facility] 08-20-2022 11:14-0500 Heart rate 79 /min Christine Collazo RN Work Phone: [facility] 08-20-2022 11:14-0500 Respiratory rate 16 /min Christine Collazo RN Work Phone: [facility] 08-20-2022 11:14-0500 SaO2% (BldA) [Mass fraction] 98 % Christine Collazo RN Work Phone: [facility] 08-20-2022 11:14-0500 Systolic blood pressure 130 mm[Hg] Christine Collazo RN Work Phone: [facility] Encounters Encounter Date Encounter Type Care Provider Facility Start: 11-21-2023 End: 11-23-2023 Evaluation and management of inpatient LETHA SANDHU Facility:[facility] Start: 11-20-2023 Emergency department patient visit LETHA [facility]onseca [facility] Start: 11-20-2023 Evaluation and management of inpatient YARY ANDERSON Facility:[facility] Start: 09-01-2023 End: 09-02-[address] ANIL CUELLAR MD Facility:[facility] Start: 09-01-2023 End: 09-01-[address] ANIL CUELLAR MD [facility] Start: 07-30-[address] ANIL CUELLAR MD Facility:[facility] Start: 07-22-2023 End: 07-29-2023 Evaluation and management of inpatient DR DILLON NORRIS DO Facility:[facility] Start: 07-22-2023 End: 07-29-2023 Evaluation and management of inpatient DR LES RINCON MD [facility] Start: 06-28-2023 End: 07-02-2023 Evaluation and management of inpatient DINA OLIVIER MD Facility:[facility] Start: 06-28-2023 End: 07-02-2023 Evaluation and management of inpatient DINA OLIVIER MD [facility] Start: 05-14-2023 Home visit Leann poole RN Work Phone: [facility] Comment on above: CARE COORDINATION Start: 05-12-2023 Home visit Louann Roberto RN Work Phone: [facility] Comment on above: CARE COORDINATION Start: 04-20-2023 End: 04-20-2023 Home visit Lacey Hernandez RN Work Phone: [facility] Comment on above: SN PRN VISIT Start: 04-19-2023 End: 04-19-2023 Home visit Mely Roblero RN Work Phone: [facility] Comment on above: SN ROUTINE Start: 04-15-2023 End: 04-15-2023 Home visit Mely Roblero RN Work Phone: [facility] Comment on above: SN RECERT Start: 04-14-2023 End: 04-14-2023 Home visit Kaitlin Antonio OT/L Work Phone: [facility] Comment on above: OT DISC DC W VISIT Start: 04-13-2023 End: 04-13-2023 Home visit Mely Roblero RN Work Phone: [facility] Comment on above: SN ROUTINE Start: 04-10-2023 End: 04-10-2023 Home visit Nevaeh Moser ARREDONDO/L Work Phone: [facility] Comment on above: ARREDONDO ROUTINE Start: 04-07-2023 End: 04-07-2023 Home visit Mely Roblero RN Work Phone: [facility] Comment on above: SN ROUTINE Start: 04-03-2023 Telephone encounter Marianne macias LPN Work Phone: [facility] Comment on above: Home Care (Delay of PT eval call) Start: 04-02-2023 End: 04-02-2023 Home visit Mely Roblero RN Work Phone: [facility] Comment on above: SN ROUTINE Start: 04-01-2023 End: 04-01-2023 Home visit Fabienne Olmosleonora OT Work Phone: [facility] Comment on above: OT EVAL Start: 03-30-2023 End: 03-30-2023 Home visit Mely Roblero RN Work Phone: [facility] Comment on above: SN FAITH Start: 03-27-2023 Telephone encounter Dyana bowser Work Phone: [facility] Comment on above: Home Care (Confirmat ion Call ) Start: 03-27-2023 End: 03-27-2023 Home visit Rigoberto Romano RN Work Phone: [facility] Comment on above: SN TRANSFER Start: 03-26-2023 End: 03-26-2023 Home visit Mely Roblero RN Work Phone: [facility] Comment on above: SN ROUTINE Start: 03-24-2023 End: 03-24-2023 Home visit Mely Roblero RN Work Phone: [facility] Comment on above: SN ROUTINE Start: 03-21-2023 End: 03-21-2023 Home visit Mely Roblero RN Work Phone: [facility] Comment on above: SN ROUTINE Start: 03-20-2023 End: 03-20-2023 Home visit Mely Roblero RN Work Phone: [facility] Comment on above: SN ROUTINE Start: 03-17-2023 End: 03-17-2023 Home visit Mely Roblero RN Work Phone: [facility] Comment on above: SN ROUTINE Start: 03-12-2023 End: 03-12-2023 Home visit Mely Roblero RN Work Phone: [facility] Comment on above: SN ROUTINE Start: 03-10-2023 End: 03-10-2023 Home visit Mely Roblero RN Work Phone: [facility] Comment on above: SN PRN VISIT Start: 03-09-2023 End: 03-09-2023 Home visit Mely Roblero RN Work Phone: [facility] Comment on above: SN ROUTINE Start: 03-06-2023 End: 03-06-2023 Home visit Porsche Cuello RN Work Phone: [facility] Comment on above: SN UNMADE VISIT Start: 03-04-2023 End: 03-04-2023 Home visit Marley Arevalo RN Work Phone: [facility] Comment on above: SN ROUTINE Start: 02-26-2023 End: 02-26-2023 Home visit Mely Roblero RN Work Phone: [facility] Comment on above: SN ROUTINE Start: 02-16-2023 End: 02-16-2023 Home visit Mely Roblero RN Work Phone: [facility] Comment on above: SN ROUTINE Start: 02-13-2023 End: 02-13-2023 Home visit Mely Roblero RN Work Phone: [facility] Comment on above: SN RECERT Start: 02-11-2023 End: 02-11-2023 Home visit Mely Roblero RN Work Phone: [facility] Comment on above: SN ROUTINE Start: 02-09-2023 End: 02-09-2023 Home visit Mely oRblero RN Work Phone: [facility] Comment on above: SN ROUTINE Start: 02-06-2023 Telephone encounter Marley nicolas RN Work Phone: [facility] Comment on above: Home Care (Unmade vi sit ) Start: 02-06-2023 End: 02-06-2023 Home visit Marley Arevalo RN Work Phone: [facility] Comment on above: SN UNMADE VISIT Start: 02-05-2023 End: 02-05-2023 Home visit Mely Roblero RN Work Phone: [facility] Comment on above: SN ROUTINE Start: 02-04-2023 End: 02-04-2023 Home visit Mely Roblero RN Work Phone: [facility] Comment on above: SN ROUTINE Start: 02-02-2023 End: 02-02-2023 Home visit Mely Roblero RN Work Phone: [facility] Comment on above: SN ROUTINE Start: 01-30-2023 End: 01-30-2023 Home visit Mely Roblero RN Work Phone: [facility] Comment on above: SN ROUTINE Start: 01-28-2023 End: 01-28-2023 Home visit Mely Roblero RN Work Phone: [facility] Comment on above: SN ROUTINE Start: 01-26-2023 End: 01-26-2023 Home visit Mely Roblero RN Work Phone: [facility] Comment on above: SN UNMADE VISIT Start: 01-19-2023 End: 01-19-2023 Home visit Mely Roblero RN Work Phone: [facility] Comment on above: SN ROUTINE Start: 01-16-2023 End: 01-16-2023 Home visit Mely Roblero RN Work Phone: [facility] Comment on above: SN ROUTINE Start: 01-14-2023 End: 01-14-2023 Home visit Mely Roblero RN Work Phone: [facility] Comment on above: SN ROUTINE Start: 01-09-2023 End: 01-09-2023 Home visit Rigoberto Romano RN Work Phone: [facility] Comment on above: SN UNMADE VISIT Start: 01-07-2023 End: 01-07-2023 Home visit Cathy Perez RN Work Phone: [facility] Comment on above: SN ROUTINE Start: 01-05-2023 End: 01-05-2023 Home visit Cathy Perez RN Work Phone: [facility] Comment on above: SN ROUTINE Start: 01-02-2023 Telephone encounter Rigoberto Palomo RN Work Phone: [facility] Comment on above: Home Care (Erroneous entry.) Start: 01-02-2023 End: 01-02-2023 Home visit Rigoberto Romano RN Work Phone: [facility] Comment on above: SN UNMADE VISIT Start: 12-31-2022 End: 12-31-2022 Home visit Rafaela Pierce LPN Work Phone: [facility] Comment on above: SN UNMADE VISIT Start: 12-29-2022 End: 12-29-2022 Home visit Mely Roblero RN Work Phone: [facility] Comment on above: SN ROUTINE Start: 12-27-2022 End: 12-27-2022 Home visit Mely Roblero RN Work Phone: [facility] Comment on above: SN ROUTINE Start: 12-15-2022 End: 12-15-2022 Home visit Mely Roblero RN Work Phone: [facility] Comment on above: SN ROUTINE Start: 12-12-2022 End: 12-12-2022 Home visit Mely Roblero RN Work Phone: [facility] Comment on above: SN ROUTINE Start: 12-11-2022 End: 12-11-2022 Home visit Mely Roblero RN Work Phone: [facility] Comment on above: SN ROUTINE Start: 12-10-2022 End: 12-10-2022 Home visit Rigoberto Romano RN Work Phone: [facility] Comment on above: SN UNMADE VISIT Start: 12-09-2022 Home visit Mely Roblero RN Work Phone: [facility] Comment on above: SN ROUTINE Start: 12-08-2022 End: 12-08-2022 Home visit Mely Roblero RN Work Phone: [facility] Comment on above: SN ROUTINE Start: 12-05-2022 End: 12-05-2022 Home visit Mely Roblero RN Work Phone: [facility] Comment on above: SN ROUTINE Start: 12-04-2022 End: 12-04-2022 Home visit Mely Roblero RN Work Phone: [facility] Comment on above: SN ROUTINE Start: 12-03-2022 End: 12-03-2022 Home visit Mely Roblero RN Work Phone: [facility] Comment on above: SN ROUTINE Start: 11-29-2022 End: 11-29-2022 Home visit Mely Roblero RN Work Phone: [facility] Comment on above: SN ROUTINE Start: 11-27-2022 End: 11-27-2022 Home visit Mely Roblero RN Work Phone: [facility] Comment on above: SN ROUTINE Start: 11-21-2022 End: 11-21-2022 Home visit Mely Roblero RN Work Phone: [facility] Comment on above: SN ROUTINE Start: 11-20-2022 End: 11-20-2022 Home visit Mely Roblero RN Work Phone: [facility] Comment on above: SN ROUTINE Start: 11-17-2022 End: 11-17-2022 Home visit Mely Roblero RN Work Phone: [facility] Comment on above: SN ROUTINE Start: 11-14-2022 End: 11-14-2022 Home visit Mely Roblero RN Work Phone: [facility] Comment on above: SN ROUTINE Start: 11-09-2022 End: 11-09-2022 Home visit Cathy Perez RN Work Phone: [facility] Comment on above: SN PRN VISIT Start: 11-08-2022 Home visit Mary Machado RN Work Phone: [facility] Comment on above: CARE COORDINATION Start: 11-06-2022 End: 11-06-2022 Home visit Mely Roblero RN Work Phone: [facility] Comment on above: SN ROUTINE Start: 11-04-2022 End: 11-04-2022 Home visit Cathy Perez RN Work Phone: [facility] Comment on above: SN PRN VISIT Start: 10-31-2022 End: 10-31-2022 Home visit Mely Roblero RN Work Phone: [facility] Comment on above: SN ROUTINE Start: 10-27-2022 End: 10-27-2022 Home visit Mely Roblero RN Work Phone: [facility] Comment on above: SN PRN VISIT Start: 10-23-2022 End: 10-23-2022 Home visit Mely Roblero RN Work Phone: [facility] Comment on above: SN ROUTINE Start: 10-17-2022 End: 10-17-2022 Home visit Mley Roblero RN Work Phone: [facility] Comment on above: SN RECERT Start: 10-13-2022 End: 10-13-2022 Home visit Mely Roblero RN Work Phone: [facility] Comment on above: SN ROUTINE Start: 10-10-2022 End: 10-10-2022 Home visit Mely Roblero RN Work Phone: [facility] Comment on above: SN UNMADE VISIT Start: 10-06-2022 End: 10-06-2022 Home visit Cathy Perez RN Work Phone: [facility] Comment on above: SN ROUTINE Start: 10-03-2022 End: 10-03-2022 Home visit Mely Roblero RN Work Phone: [facility] Comment on above: SN ROUTINE Start: 10-01-2022 Telephone encounter Rigoberto Palomo RN Work Phone: [facility] Comment on above: Home Care (Erroneous entry/) Start: 10-01-2022 End: 10-01-2022 Home visit Rigoberto Romano RN Work Phone: [facility] Comment on above: CARE COORDINATION Start: 09-29-2022 End: 09-29-2022 Home visit Mely Roblero RN Work Phone: [facility] Comment on above: SN ROUTINE Start: 09-24-2022 End: 09-24-2022 Home visit Mely Roblero RN Work Phone: [facility] Comment on above: SN ROUTINE Start: 09-19-2022 End: 09-19-2022 Home visit Rigoberto Romano RN Work Phone: [facility] Comment on above: SN UNMADE VISIT Start: 09-17-2022 End: 09-17-2022 Home visit Mely Roblero RN Work Phone: [facility] Comment on above: SN UNMADE VISIT Start: 09-12-2022 End: 09-12-2022 Home visit Rigoberto Romano RN Work Phone: [facility] Comment on above: SN UNMADE VISIT Start: 09-08-2022 End: 09-08-2022 Home visit Mely Roblero RN Work Phone: [facility] Comment on above: SN ROUTINE Start: 09-05-2022 End: 09-05-2022 Home visit Mely Roblero RN Work Phone: [facility] Comment on above: SN ROUTINE Start: 09-03-2022 End: 09-03-2022 Home visit Mely Roblero RN Work Phone: [facility] Comment on above: SN ROUTINE Start: 09-01-2022 End: 09-01-2022 Home visit Mely Roblero RN Work Phone: [facility] Comment on above: SN ROUTINE Start: 08-30-2022 End: 08-30-2022 Home visit Jerrica Thakkar RN Work Phone: [facility] Comment on above: SN ROUTINE Start: 08-28-2022 End: 08-28-2022 Home visit Mely Roblero RN Work Phone: [facility] Comment on above: SN ROUTINE Start: 08-25-2022 End: 08-25-2022 Home visit Mely Roblero RN Work Phone: [facility] Comment on above: SN ROUTINE Start: 08-22-2022 End: 08-22-2022 Home visit Cathy Perez RN Work Phone: [facility] Comment on above: SN ROUTINE Start: 08-20-2022 End: 08-20-2022 Home visit Christine Collazo RN Work Phone: [facility] Comment on above: SN SOC Start: 08-19-2022 Telephone encounter Dillon Serra oscar LEONN Work Phone: [facility] Comment on above: Home Care (MD anat barger ) Home Care (Confirmat ion call) Medication Problem Start: 08-16-2022 End: 08-18-2022 Evaluation and management of inpatient CHANCE CHEEK ABDALLA Facility:[facility] Start: 10-04-2018 Patient encounter procedure BLUE FOOTEMA Facility:[facility] Start: 07-12-2018 End: 07-12-2018 Patient encounter procedure GERALDINE DENSON Facility:[facility] Start: 07-05-2018 End: 07-05-2018 Patient encounter procedure BLUE FOOTEMA Facility:[facility] Start: 06-21-2018 Patient encounter procedure BLUE SANDERSON Facility:[facility] Start: 06-14-2018 End: 06-14-2018 Patient encounter procedure GERALDINE DENSON Facility:[facility] Start: 06-01-2018 Patient encounter procedure BLUE SANDERSON Facility:[facility] Start: 05-21-2018 End: 05-21-2018 Patient encounter procedure BLUE SANDERSON Facility:[facility] Start: 05-03-2018 End: 05-03-2018 Patient encounter procedure BLUE SANDERSON Facility:[facility] Start: 04-12-2018 Patient encounter Jessie Víctor Fa cility:[facility] [place] Start: 01-21-2018 Patient encounter Jessie Juaresmery Fa cility:[facility] [place] Start: 10-05-2017 Patient encounter Jessie Víctor Fa cility:[facility] [place] Start: 09-18-2017 Patient encounter Jessie Juaresjonahjesenialavonne Fa cility:[facility] [place] Start: 09-04-2017 Patient encounter Jessie Juaresjonahjesenialavonne Janell cility:[facility] [place] Procedures Date Procedure Procedure Detail Performing Clinician Start: 06-29-2023 Implantation of card iac pacemaker DINA OLIVIER MD Comment on above: Dual Chamber Pacemak er 06/29/[address] [employer] [facility] 2272 Assurity MRI Serial [id number] RA Lead 8 TC Tendril STS Serial [id number] 06/29/[address] [facility] [employer] [facility] 2088 TC Tendril STS Serial [id number] 06/29/2023 LBB LEAD Start: 08-16-2022 Lipid 1996 panel - S mireille or Plasma Kaitlin Paco OT/L Work Phone: Start: 07-05-2018 Laboratory test resu lt abnormal Abnormal laboratory test Dillon Martinez LPN Work Phone: Start: 03-07-2016 Colonoscopy 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 Work 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: History of percutane ous transluminal coronary angioplasty DINA OLIVIER MD History of percutane ous transluminal coronary angioplasty DR LES RINCON MD Plan of Treatment Date Care Activity Detail Author Start: 08-16-2027 Lipid 1996 panel - S mireille or Plasma Lipid Screening [facility] Start: 08-16-2027 LIPID SCREEN LIPID SCREEN [facility] Start: 04-20-2026 Diabetes Screening Diabetes Screenin g [facility] Start: 03-10-2026 DIABETES SCREEN DIABETES SCREEN [facility] Start: 03-10-2026 Diabetes Screening Diabetes Screenin g [facility] Start: 02-11-2026 DIABETES SCREEN DIABETES SCREEN [facility] Start: 02-05-2026 DIABETES SCREEN DIABETES SCREEN [facility] Start: 11-04-2025 DIABETES SCREEN DIABETES SCREEN [facility] Start: 08-18-2025 DIABETES SCREEN DIABETES SCREEN [facility] Start: 04-03-2023 Influenza vaccination [facility] Start: 04-03-2022 Influenza vaccination INFLUENZA (#1) [facility] Start: 2019 SHINGRIX VACCINE (1 of 2) SHINGRIX V ACCINE (1 of 2) [facility] Start: 03-07-2019 Colonoscopy COLONOSCOPY [facility] Start: 03-07-2019 COLORECTAL CANCER SCREENING COLORECTAL CANCER SCREENING [facility] Start: 2014 COLOGUARD (FIT-DNA) COLOGUARD (FIT-D NA) [facility] Start: [address] COLONOGRAPHY [facility] Start: 2014 FECAL OCCULT BLOOD FECAL OCCULT BLOO D [facility] Start: 2014 SIGMOIDOSCOPY SIGMOIDOSCOPY [facility] Start: 1988 Urine microalbumin profile [facility] Start: 1987 HIV SCREENING HIV SCREENING [facility] Start: 1975 PNEUMOCOCCAL (1 - PCV) PNEUMOCOCCAL (1 - PCV) [facility] Start: 1975 Pneumococcal vaccination Pneum ococcal Vaccine (1 - PCV) [facility] Start: 02-11-1970 COVID-19 VACCINE (#1) COVID-19 VACCI NE (#1) [facility] Start: 1969 HEPATITIS B (1 of 3 - 3-dose series) HEPATITIS B (1 of 3 - 3-dose series) [facility] Start: 1969 Hepatitis B Vaccine (1 of 3 - 3-dose series) Hepatitis B Vaccine (1 of 3 - 3-dose series) [facility] Immunizations Immunization Date Immunization Notes Care Provider Janell perez 06-23-2013 influenza virus vacc ine, unspecified formulation Kaitlin Antonio OT/L Work Phone: [facility] Payers Date Payer Category Payer Medicaid [id number] 2021 Medicaid [id number] 1970 Unknown [id number] 2.16.8 [id number] 1969 Unknown [id number] 2.16.8 [id number] 1969 Unknown [id number] 2.16.8 [id number] 1969 Unknown [id number] 2.16.8 [id number] 1969 Unknown [id number] 2.16.8 [id number] 1969 Unknown [id number] 2.16.8 [id number] 1969 Unknown [id number] 2.16.8 [id number] 1969 Unknown [id number] 2.16.8 [id number] 1969 Unknown [id number] 2.16.8 [id number] 1969 Unknown [id number] 2.16.8 [id number] 1969 Unknown [id number] 2.16.8 [id number] 1969 Unknown [id number] 2.16.8 [id number] 1969 Unknown [id number] 2.16. [id number] Unknown [id number] Social History Date Type Detail Facility Start: 06-14-[facility] History of tobacco use Cigarette Smoker [facility] Start: 06-14-2018 End: 12-03-2022 Cigarettes smoked current (pack per day) - Reported 1.5 [facility] Start: 06-14-2018 Tobacco use and exposure Daphne r smokeless tobacco user [facility] tobacco use [facility] Start: 07-12-2018 Alcohol intake 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) [facility] Start: 08-18-2022 History SDOH Financial 5 [facility] Start: 08-18-2022 History SDOH Food Worry 1 [facility] Start: 08-18-2022 History SDOH Transport Med 2 [facility] Start: 1970 Sex Assigned At Not on file [facility] Start: 07-12-2018 End: 12-03-2022 Tobacco use panel [facility] How hard is it for y ou to pay for the very basics like food, housing, medical care, and heating Not hard at all [facility] (I/We) worried tatyana er (my/our) food would run out before (I/we) got money to buy more. Never true [facility] In the past 12 month s, was there a time when you were not able to pay the mortgage or rent on time? No [facility] Start: 06-28-2023 Tobacco smoking status Heavy t obacco smoker (finding) [facility] Sex Assigned At Sex [facility] Functional Status Date Assessment Result Facility 07-29-2023 Functional Status Lunch Percent 100 [facility] 07-29-2023 Functional Status Room check performed [facility] 07-29-2023 Functional Status [facility] 07-29-2023 Functional Status [facility] 07-28-2023 Functional Status Activity Assistance Two assist [facility] 07-28-2023 Functional Status 100 [facility] 07-28-2023 Functional Status Sequential Com pression Device bilateral knee high applied/on [facility] 07-27-2023 Functional Status [facility] 07-27-2023 Functional Status [facility] 07-27-2023 Functional Status Done [facility] 07-26-2023 Functional Status [facility] 07-25-2023 Functional Status [facility] 07-24-2023 Functional Status Done [facility] 07-23-2023 Functional Status [facility] 07-23-2023 Functional Status Driving [facility] 07-23-2023 Functional Status [facility] 07-02-2023 Functional Status Current Home Treatments Oxygen therapy [facility] 07-02-2023 Functional Status Done [facility] 07-02-2023 Functional Status Room located n ear nursing station, Door open, Room check performed, High risk door magnet present [facility] 07-02-2023 Functional Status [facility] 07-02-2023 Functional Status [facility] 07-02-2023 Functional Status [facility] 07-01-2023 Functional Status Nurse Safety C morro q2hrs Performed 11pm-3am [facility] 07-01-2023 Functional Status [facility] 07-01-2023 Functional Status Sequential Com pression Device bilateral thigh high removed/off [facility] 07-01-2023 Functional Status Sitting on edge of bed [facility] 07-01-2023 Functional Status [facility] 07-01-2023 Functional Status Independent [facility] 07-01-2023 Functional Status [facility] 06-30-2023 Functional Status [facility] 06-30-2023 Functional Status [facility] 06-30-2023 Functional Status Single level home [facility] 06-30-2023 Functional Status Mod I [facility] 06-29-2023 [facility] Functional Status [facility] 06-29-2023 Functional Status Morning Snack Percent [address] [facility] 06-29-2023 Functional Status NPO Status Maintained A [facility] 06-29-2023 Functional Status [facility] 06-28-2023 Functional Status [facility] 06-28-2023 Functional Status [facility] 06-28-2023 Functional Status [facility] 06-28-2023 Functional Status [facility] 06-28-2023 Functional Status Up with assistance [facility] Mental Status Date Assessment Result Facility 07-29-2023 Mental Status Oriented x [facility] 07-28-2023 Mental Status [facility] 07-28-2023 Mental Status [facility] 07-27-2023 Mental Status [facility] 07-26-2023 Mental Status [facility] 07-02-2023 Mental Status Orientation Oriented x 4 [facility] 07-02-2023 Mental Status [facility] 07-01-2023 Mental Status [facility] 07-01-2023 Mental Status [facility] 07-01-2023 Mental Status [facility] Clinical Notes 08-17-2022 to 11-23-2023 Note Date & Type Note Facility 11-23-2023 Note HNO ID: [id number] Author: PHIL HENDRIX RPh Service: Pharmacy Author Type: Pharmacist Type: Plan of Care Filed: 11/23/2023 14:34 Note Text: DISCHARGE MEDICATION REVIEW BY PHARMACY Patient Name: Cayla Granados Account #: Data Unavailable Admission Date: 11/21/2023 Date of Contact: November 23, 2023 Time of Contact: 2:30 PM Medication list was reviewed by a Pharmacist for drug interactions or drug related problems:Yes Below is a summary of pharmacist recommendations discussed with LIP: No Recommendations at this time from Discharge Medication List. Phil Hendrix [facility] November 23, 2023 2:30 PM [id number] Medication List START taking these medications cefdinir 300 mg capsule Commonly known as: OMNICEF Take 1 capsule by mouth two times a day for 7 days. sulfamethoxazole-trimethoprim 800-160 mg per tablet Commonly known as: BACTRIM DS Take 1 tablet by mouth two times a day for 7 days. Replaces: BACTRIM 400-80 mg per tablet CHANGE how you take these medications predniSONE 5 mg tablet Commonly known as: DELTASONE 17.5 mg daily for 2 week, continue taper by 2.5 mg every 2 weeks. What changed: how much to take how to take this when to take this additional instructions CONTINUE taking these medications aspirin, enteric coated 81 mg EC tablet Commonly known as: ASPIRIN, ENTERIC COATED atorvastatin 40 mg tablet Commonly known as: LIPITOR bumetanide 1 mg tablet Commonly known as: BUMEX * cyanocobalamin (vitamin B-12) 1,000 mcg/mL Kit * cyanocobalamin 500 mcg tablet Commonly known as: VITAMIN B-12 dabigatran etexilate 150 mg Commonly known as: PRADAXA diazePAM 10 mg tablet Commonly known as: VALIUM dicyclomine 20 mg tablet Commonly known as: BENTYL take 1 tablet by mouth every 6 hours ferrous gluconate 324 mg (37.5 mg iron) tablet fluticasone prp-sod.chl,bicarb 50 mcg- 0.9 % Ksps furosemide 20 mg tablet Commonly known as: LASIX gabapentin 100 mg capsule Commonly known as: NEURONTIN glipiZIDE XL 2.5 mg 24 hr tablet Commonly known as: GLUCOTROL XL HYDROcodone-acetaminophen 5-325 mg per tablet Commonly known as: NORCO hydrocortisone 2.5 % rectal cream Commonly known as: ANUSOL-HC 1 application by RECTAL route four times daily as needed. levothyroxine 150 mcg Cap kgewemvsc-lurtkr-jvomptbef HCl 2.5-2.5-3.88 % cream Commonly known as: PRIZOTRAL losartan 25 mg tablet Commonly known as: COZAAR metoprolol tartrate (short acting) 25 mg tablet Commonly known as: LOPRESSOR NYSTOP powder Generic drug: nystatin omeprazole 20 mg capsule Commonly known as: PriLOSEC take 2 capsules by mouth once daily OXYCODONE ORAL OXYGEN (HOME THERAPY) polyethylene glycol 3350 17 gram/dose powder Commonly known as: MIRALAX Take 17 g by mouth once daily. tamsulosin 0.4 mg Commonly known as: FLOMAX TESSALON PERLES 100 mg capsule Generic drug: benzonatate ticagrelor 90 mg tablet Commonly known as: BRILINTA VENTOLIN HFA 90 mcg/actuation inhaler Generic drug: albuterol HFA VITAMIN C 500 mg tablet Generic drug: ascorbic acid (vitamin C) Zinc Acetate (Oral) 50 mg (zinc) Cap * This list has 2 medication(s) that are the same as other medications prescribed for you. Read the directions carefully, and ask your doctor or other care provider to review them with you. STOP taking these medications BACTRIM 400-80 mg per tablet Generic drug: sulfamethoxazole-trimethoprim Replaced by: sulfamethoxazole-trimethoprim 800-160 mg per tablet cephALEXin 500 mg capsule Commonly known as: KEFLEX doxycycline hyclate 100 mg capsule Commonly known as: VIBRAMYCIN Where to Get Your Medications These medications were sent to [id number] - [place] [address] - [address] [place] [address] - [phone] [id number] [facility] [id number] cefdinir 300 mg capsule sulfamethoxazole-trimethoprim 800-160 mg per tablet [facility] 11-23-2023 Note HNO ID: [id number] Author: ALFREDA NASH LSW Service: Care Management Author Type: Control Panel Builder Type: Care Mgt Progress Note Filed: 11/23/2023 12:21 Note Text: CARE MANAGEMENT DISCHARGE NOTE SERVICE DATE: November 23, 2023 SERVICE TIME: 12:20 PM Admission Date: 11/21/2023 LOS: 2 days Discharge Information Row Name Admission (Current) from 11/21/2023 in [place] [address] [address] [facility] Pt has been medically cleared for dc today. Updates sent to [facility]. RN has number for report. MMT bariatric transport arranged for 230p. T DC packet completed. No further needs identified for CM intervention at this time. SIGNATURE: ULISES Burch PATIENT NAME: Cayla Granados DATE: November 23, 2023 TIME: 12:20 PM CONTACT #: [phone] [facility] 11-23-2023 Note HNO ID: [id number] Author: ALFREDA NASH LSW Service: Care Management Author Type: Control Panel Builder Type: Care Mgt Progress Note Filed: 11/23/2023 10:16 Note Text: Attestation signed by Wilbert Abreu MD at 11/23/2023 12:29 PM Agree with below Wilbert Abreu MD CARE MANAGEMENT PROGRESS NOTE SERVICE DATE: 11/23/2023 SERVICE TIME: 10:15 AM LOS: 2 days Physician Certification of Less Than 30 Days Post-Acute Nursing Facility Needed Earliest Possible Discharge Date: 11/23/23 To the best of my knowledge, all information provided about the individual is a true and an accurate reflection of Cayla Granados's needs. I certify that following the inpatient level of care, a post-acute nursing facility stay is required for less than 30 days related to the condition(s) for which the patient was treated during the inpatient level of care: Principal Problem: Grecia's disease Active Problems: Cellulitis Scrotal abscess Resolved Problems: * No resolved hospital problems. * Physician: Wilbert Abreu MD SIGNATURE: ULISES Burch PATIENT NAME: Cayla Granados DATE: November 23, 2023 TIME: 10:15 AM PAGER/CONTACT #: [phone] [facility] 11-23-2023 Note HNO ID: [id number] Author: WILBERT ABREU MD Service: Urology Author Type: Resident Type: Progress Notes Filed: 11/23/2023 09:18 Note Text: Cayla Granados 11/23/2023 7:34 AM Urology Prog Note: S; Doing well, starting to get out of bed some O: 11/22/23 1221 11/22/23 1523 11/22/23200011/23/23 0024 BP: (!) 124/48 130/87 96/50 127/57 Pulse: 99 96 99 88 Resp: 16 Temp: 36.5 ?C (97.7 ?F) 36.8 ?C (98.2 ?F) 36.8 ?C (98.2 ?F) 36.6 ?C (97.9 ?F) TempSrc: Oral Oral Oral Oral SpO2: 98% 100% 93% 96% Weight: Height: Date 11/22/23 0700 - 11/23/23 0659 11/23/23 0700 - 11/24/23 0659 Shift 8840-6587 7150-8703 1279-9116 24 Hour Total 6742-6053 6625-5671 8173-7001 24 Hour Total INTAKE PO 480 360 840 PO 480 360 840 IV 725 577 4335 2500 Volume (mL) (lactated ringers iv infusion) 674 581 8762 2500 Shift Total 1230 1110 1000 3340 OUTPUT Urine 2200 1200 3400 Urine Incontinence/Not Saved 1 x 1 x Output ( External Collection Device 11/22/23 1446) 2200 1200 3400 # of BMs Number of BMs 0 x 0 x 0 x Shift Total 2200 1200 3400 Weight (kg) 216.9 216.9 216.9 216.9 216.9 216.9 216.9 216.9 Exam: Gen: well appearing, NAD CV: RR Resp: Unlabored : external cath in place, mild scrotal erythema no edema or fluctuance Plan: - DC to SNF D/w staff Wilbert Abreu MD Urology resident Pager [phone] [facility] 11-22-2023 Note HNO ID: [id number] Author: ALFREDA NASH LSW Service: Care Management Author Type: Control Panel Builder Type: Care Mgt Progress Note Filed: 11/22/2023 14:40 Note Text: CARE MANAGEMENT PROGRESS NOTE SERVICE DATE: 11/22/2023 SERVICE TIME: 1:25 PM LOS: 1 day DISCHARGE PLAN Discharge plan discussed with: pt, bedside RN Anticipated Discharge Plan: SNF, Pt requested a referral to [facility] Anticipated Discharge Date: TBD DISCHARGE TRANSPORTATION Discharge Transportation: Ambulance- pt needs bariatric ambulance transport. CM covering Thursday Notified by RN that pt is dc'ed and needs assist with a ride home. Chart reviewed. Pt is from [place], [place] and will require bariatric transport due to weight. Met with pt at bedside. After introducing myself, pt immediately said he needed to go to a long term. He told me that he spoke with the people at [facility] and wants to go there. He reports not being able to manage at home. He said he talked to them before he had his surgery because he suspected that he would not be able to manage at home alone. Discussed SNF placement process. Pt does not need insurance auth, however there are several steps that need to be taken to qualify pt for SNF level of care. No dc possible today. CM sent a referral to [facility] but does not anticipate a response until tomorrow morning during business hours. Pt will also need PT eval. Initial Assessment will be completed in AM. CM following. 2:[facility]. Level of Care signature page on green chart for MD signature. CM can not move forward with dc without submitting this to the [facility]. Primary team- please sign this becky Thursday. Transport arranged for Thursday at 230p. CM will finalize arrangements in AM. SIGNATURE: ULISES Burch PATIENT NAME: Cayla Granados DATE: November 22, 2023 TIME: 1:25 PM PAGER/CONTACT #: [phone] [facility] 11-22-2023 Note HNO ID: [id number] Author: ROSI TAMEZ, ? Service: ? Author Type: Distributor Publications Type: Plan of Care Filed: 11/22/2023 13:10 Note Text: Insurance investigation completed Patient has active prescription insurance: Yes - Patient's insurance is in-network with [facility] Insurance loaded into [employer]: Yes Test claim was completed to verify insurance is active: Successful Any questions, please contact your medication appeals coordinator. Pager #: [phone] [facility] 11-22-2023 Note HNO ID: [id number] Author: ELLI LEVINE MD Service: Urology Author Type: Resident Type: Progress Notes Filed: 11/22/2023 09:48 Note Text: UROLOGY INPATIENT PROGRESS NOTE SERVICE DATE: 11/22/2023 SERVICE TIME: 9:46 AM PATIENT AGE: [age] year old DIAGNOSIS, ASSESSMENT AND PLAN ASSESSMENT AND PLAN: 53M with morbid obesity, scrotal pain/swelling for 1 week, assessed at OSH and sent home on PO abx. Re-admitted 11/17 with drainage from scrotum, transferred for concern for Grecia's. WBC was 18, Cr 1 at OSH. Scrotal exam unremarkable except mild diffuse erythema. Interval: - scrotal exam remains unremarkable - VSS, NC overnight while sleeping - CBC stable, mild SARAH today suspect from NPO status prior. UOP 5.4L Plan: - pain control PRN - IS, OOB - CC diet. Colace. MIVF - bolus today - External catheter, home flomax - ID: - Blood culture in process - Start Zosyn (tolerated at OSH despite listed allergy) + vanc + clinda - ID consult - Low suspicion for grecia's as stable exam w/o foul odor, fluctuance, crepitus. - SCD. Holding dagibatran - restart today Dispo: DC today with oral antibiotics, likely bactrim + cefdinir. Will confirm with ID, discussed - Secondary Dx and Complications - Morbid obesity POA - weight loss DMT2 POA - SSI Anxiety POA - monitor HLD POA - home meds Scrotal cellulitis POA - abx, ID consult CAD s/p PCI POA - ASA81, holding dagibatran - resume when able post-op. Not taking Brillanta at home BPH POA - flomax D/w dr. Giselle Levine MD Urology Resident [phone] After 5pm or weekends: [id number] ([facility]), [id number] ([place]) OBJECTIVE BP 129/53 Pulse 87 Temp 36.6 ?C (97.9 ?F) (Oral) Resp 18 Ht 185.4 cm (6' 1 ) Wt (!) 216.9 kg (478 lb 2.8 oz) SpO2 96% BMI 63.09 kg/m? INTAKE/OUTPUT: Intake/Output Summary (Last 24 hours) at 11/22/2023 0946 Last data filed at 11/22/2023 0933 Gross per 24 hour Intake 720 ml Output 4600 ml Net -3880 ml PHYSICAL EXAM: GENERAL: nad PULM: unlabored CV: rrr ABD: soft : mild erythema, nontender, no fluctuance or crepitus. External catheter in place EXT: no swelling IP MEDICATIONS: Current Facility-Administered Medications Medication Dose Route Frequency gabapentin 100 mg cap(s) (NEURONTIN) 100 mg ORAL AT BEDTIME atorvastatin 40 mg tab(s) (LIPITOR) 40 mg ORAL DAILY tamsulosin 0.4 mg cap(s) (FLOMAX) 0.4 mg ORAL DAILY albuterol HFA 90 mcg/actuation 2 Puff (PROVENTIL HFA, VENTOLIN HFA) 2 Puff INHALATION q 6 H PRN metoprolol tartrate (short acting) 50 mg tab(s) (LOPRESSOR) 50 mg ORAL BID furosemide 40 mg tab(s) (LASIX) 40 mg ORAL BID 9a/5p aspirin, enteric coated 81 mg tab(s) 81 mg ORAL DAILY docusate sodium 100 mg cap(s) (COLACE) 100 mg ORAL BID NaCl 0.9% iv flush bag 20 mL INTRAVENOUS PRN lactated ringers iv infusion 125 mL/hr INTRAVENOUS CONTINUOUS acetaminophen 1,000 mg tab(s) (TYLENOL) 1,000 mg ORAL q 6 H oxyCODONE IR 5 mg tab(s) (ROXICODONE) 5 mg ORAL q 6 H PRN HYDROmorphone 0.2 mg injection (DILAUDID) 0.2 mg INTRAVENOUS q 2 H PRN ondansetron (PF) 4 mg injection (ZOFRAN) 4 mg INTRAVENOUS q 6 H PRN melatonin 6 mg tab(s) 6 mg ORAL DAILY (8 PM) phenol 1 Frost (CHLORASEPTIC) 1 Frost MUCOUS MEMBRANE (TOPICAL MOUTH AND THROAT) q 2 H PRN simethicone, chewable 80 mg tab(s) (MYLICON) 80 mg ORAL q 8 H PRN heparin 7,500 Units injection 7,500 Units SUBCUTANEOUS q 8 H vancomycin dosing and monitoring per pharmacy OTHER As Directed pantoprazole DR 40 mg tab(s) (PROTONIX) 40 mg ORAL DAILY (6 AM) losartan 25 mg tab(s) (COZAAR) 25 mg ORAL DAILY levothyroxine (SYNTHROID) tab(s) 238 mcg 238 mcg ORAL DAILY (6 AM) piperacillin-tazobactam iv piggyback 3.375 g in dextrose (iso-osmotic) 50 mL (ZOSYN) 3.375 g INTRAVENOUS q 6 H dextrose 15 gram/32 mL 15 g (TRUEPLUS) 15 g ORAL PRN Or glucagon 1 mg injection 1 mg INTRAMUSCULAR PRN Or dextrose 10% iv bolus 12.5 g INTRAVENOUS PRN insulin lispro injection (rapid acting) (ADMElog) SUBCUTANEOUS w MEALS vancomycin 1.75 g in D5W 500 mL (VANCOCIN) 1.75 g INTRAVENOUS q 12 HR diazePAM 10 mg tab(s) (VALIUM) 10 mg ORAL BID PRN LABS: CBC, Coags, BMP, Mg, Phos Recent Labs 11/22/23 0513 11/21/23 0621 11/21/23 0620 WBC 9.23 -- 11.39* HB 9.1* -- 9.5* HCT 32.0* -- 32.6* PLT 251 -- 280 INR -- -- 1.1 APTT -- -- 25.8 NA 139 141 -- K 3.9 4.1 -- CHLOR 100 101 -- CO2 32* 29 -- BUN 13 10 -- CREAT 1.63* 1.18 -- GLUC 221* 184* -- CA 8.2* 8.6 -- MG -- 2.1 -- [facility] 08-05-2023 Note ORIGINAL PROCEDURE: PICC placement with fluoroscopy and ultrasound guidance: 07/29/2023 CLINICAL STATEMENT: Patient requires IV access for long-term antibiotic therapy. MATERIALS: MetrigoComp 5 Fr dual lumen PICC Probe cover CHG dressing FLUORO: 2.9 minutes AIR KERMA DOSE: 219 mGy ACCESS VESSEL: Right basilic vein TIP LOCATION: Near the cavoatrial junction CATHETER LENGTH: 52 cm The procedure, risks, and alternatives, were discussed and all questions were answered. Written informed consent obtained. Accompanying paperwork was verified for accuracy. Directed history and physical exam performed prior to the procedure. Medication reconciliation performed by nursing personnel. Procedure was performed using a cap, sterile gown, sterile gloves, a large sterile sheet, hand hygiene and 2% chlorhexidine for cutaneous antisepsis. The patient was positioned on the table and prepped and draped in usual sterile fashion. A critical pause was performed with assisting personnel just prior to the procedure with the patient's identity confirmed using 2 identifiers, confirming site and side. A preliminary ultrasound was performed demonstrating vessel patency with flow. An image was obtained. 2% lidocaine was administered at the puncture site for local anesthesia. Under direct ultrasound guidance, a 21 gauge needle was used to access the vein. A wire was advanced and a peel-away sheath was placed. A small skin incision was made. The catheter length was measured using the guidewire. After trimming the PICC to the appropriate length, it was advanced through the sheath lead by the wire under fluoroscopy. The catheter was positioned with the tip positioned as above. Function of catheter lumens was evaluated and appropriate. A sterile dressing was applied. The catheter was secured to the skin. The patient tolerated the procedure well without immediate complication. Blood loss was minimal. Patient condition was stable. IMPRESSION: Successful PICC placement. Procedure was performed by Luann Mccormick PA-C. I concur with the contents of this report. Interpreted by: Lucius Mcgrath MD Preliminary Report By: Luann Mccormick PA-C Electronically signed By Lucius Mcgrath MD Dictated Date: 07/30/2023 4:27:31 PM Prelim Date: 07/30/2023 4:29:04 PM Sign Date: 08/05/2023 5:15:41 PM Ordering Provider: ANIL JOINER [facility] ([place] 07-30-2023 Note . MICRO - Microbiology PROCEDURE: Culture Wound Aerobic with Gram Stain [*1] SOURCE: Abscess BODY SITE: Scrotum COLLECTED DATE/TIME: 07/25/2023 22:01 EST RECEIVED DATE/TIME: 07/26/2023 08:35 EST START DATE/TIME: 07/26/2023 08:35 EST FREE TEXT SOURCE: Scrotum FINAL REPORTS Final Report [] Verified Date/Time/Personnel: 07/29/2023 07:51 EST Light Klebsiella pneumoniae ESBL Extended-Spectrum B-Lactamase isolate may be clinically resistant to therapy with Penicillins, Cephalosporinsor Aztreonam despite apparent in vitro susceptibility to some of these agents. Use of Imipenem is currently restricted to Infectious Disease /Intensivists. Please consult Physicians accordingly. Light normal skin arsalan present. Sensitivity testing not indicated. Neisseria gonorrhoeae: Negative PRELIMINARY REPORTS Preliminary Report [] Verified Date/Time/Personnel: 07/28/2023 09:44 EST Light Klebsiella pneumoniae MONIKA to follow Light normal skin arsalan present. Sensitivity testing not indicated. Neisseria gonorrhoeae: Pending Preliminary Report [] Verified Date/Time/Personnel: 07/27/2023 08:39 EST Culture results pending. STAINS GS [] Verified Date/Time/Personnel: 07/26/2023 13:06 EST 4+ Polymorphonuclear cells Rare Gram Positive Rods Rare Gram Positive Cocci SUSCEPTIBILITY RESULTS Klebsiella pneumoniae ESBL Antibiotic MONIKA Dilut MONIKA Inter Amikacin <=16 Susceptible Amoxicillin/ 16/8 Resistant Clavulanate Ampicillin >16 Resistant Ampicillin/ 16/8 Resistant Sulbactam Aztreonam 8 Resistant Cefazolin >16 Resistant Cefotaxime >32 Suspected ESBL [employer]isher Ceftriaxone >32 Suspected ESBL [employer]s Finisher Cefuroxime >16 Resistant Ciprofloxacin 2 Resistant Ertapenem <=0.5 Susceptible Gentamicin >8 Resistant ID Panel Not Not Applicable Applicable MICRO - Microbiology SUSCEPTIBILITY RESULTS Klebsiella pneumoniae ESBL Antibiotic MONIKA Dilut MONIKA Inter Imipenem <=1 Susceptible Levofloxacin <=0.5 Susceptible Meropenem <=1 Susceptible Minocycline <=4 Susceptible Moxifloxacin <=2 Susceptible Tetracycline >8 Resistant Tobramycin >8 Resistant Trimethoprim/ >2/38 Resistant Sulfa Performing Locations *1: This test was performed at: [facility], [address] [place] [address], [facility] , [facility] ([place] 07-30-2023 Note . MICRO - Microbiology PROCEDURE: Culture Body Fluid with Gram Stain [*1] SOURCE: Body Fluid, BODY SITE: Scrotum Miscellaneous COLLECTED DATE/TIME: 07/23/2023 14:53 EST RECEIVED DATE/TIME: 07/23/2023 15:15 EST START DATE/TIME: 07/23/2023 15:15 EST FREE TEXT SOURCE: Scrotal Abscess FINAL REPORTS Final Report [] Verified Date/Time/Personnel: 07/30/2023 07:02 EST No aerobes or anaerobes isolated at 7 days. PRELIMINARY REPORTS Preliminary Report [] Verified Date/Time/Personnel: 07/24/2023 07:32 EST No growth to date STAINS GS [] Verified Date/Time/Personnel: 07/23/2023 16:56 EST Unsedimented 3+ Polymorphonuclear cells No organisms seen. Performing Locations *1: This test was performed at: [facility], [address] [place] [address], [facility] , [facility] ([place] 07-29-2023 Hospital Discharge instructions Patient Education 07/29/2023 16:39:10 Edema, Uicn-gy-Vtgb Edema Edema is when you have too much fluid in your body or under your skin. Edema may make your legs, feet, and ankles swell up. Swelling is also common in looser tissues, like around your eyes. This is a common condition. It gets more common as you get older. There are many possible causes of edema. Eating too much salt (sodium) and being on your feet or sitting for a long time can cause edema in your legs, feet, and ankles. Hot weather may make edema worse. Edema is usually painless. Your skin may look swollen or shiny. Follow these instructions at home: Keep the swollen body part raised (elevated) above the level of your heart when you are sitting or lying down. Do not sit still or stand for a long time. Do not wear tight clothes. Do not wear garters on your upper legs. Exercise your legs. This can help the swelling go down. Wear elastic bandages or support stockings as told by your doctor. Eat a low-salt (low-sodium) diet to reduce fluid as told by your doctor. Depending on the cause of your swelling, you may need to limit how much fluid you drink (fluid restriction). Take lfun-pce-vobveky and prescription medicines only as told by your doctor. Contact a doctor if: Treatment is not working. You have heart, liver, or kidney disease and have symptoms of edema. You have sudden and unexplained weight gain. Get help right away if: You have shortness of breath or chest pain. You cannot breathe when you lie down. You have pain, redness, or warmth in the swollen areas. You have heart, liver, or kidney disease and get edema all of a sudden. You have a fever and your symptoms get worse all of a sudden. Summary Edema is when you have too much fluid in your body or under your skin. Edema may make your legs, feet, and ankles swell up. Swelling is also common in looser tissues, like around your eyes. Raise (elevate) the swollen body part above the level of your heart when you are sitting or lying down. Follow your doctor's instructions about diet and how much fluid you can drink (fluid restriction). This information is not intended to replace advice given to you by your health care provider. Make sure you discuss any questions you have with your health care provider. Document Released: 01/05/2009 Document Revised: 07/23/2018 Document Reviewed: 08/07/2017 [employer] Patient Education [employer]. Follow Up Care 07/22/2023 11:32:24 With:ANIL CUELLAR BA, MD, Infectious Disease, Infectious Disease Group Address: [facility] [id number] [place] [address]- When:1-2 days Comments:4 weeks. With:DILLON NORRIS DO Address: [address] [place] [id number]- When:1-2 days Comments:Please call the office within 2 days to schedule a follow-up appointment. [facility] 07-29-2023 Note Discharge Instructions Thank you for allowing [facility] to assist you with your healthcare needs. The following is important discharge information regarding your hospital visit. Your Care Team DILLON NORRIS DO Your Diagnosis Chest pain Scrotal abscess Scrotal swelling What to do next Scheduled Follow-Up Appointments Appointment Type When With Where Contact InformationINF Labwork 07/30/2023 08:30 AM EST Infusion Therapy INF Infusion: Antibiotic (1 Hour) 07/30/2023 08:45 AM EST Infusion Therapy INF Labwork 07/31/2023 08:30 AM EST Infusion Therapy INF Infusion: Antibiotic (1 Hour) 07/31/2023 08:45 AM EST Infusion Therapy INF Infusion: Antibiotic (1 Hour) 08/01/2023 08:30 AM EST Infusion Therapy INF Infusion: Antibiotic (1 Hour) 08/02/2023 08:30 AM EST Infusion Therapy INF Infusion: Antibiotic (1 Hour) 08/03/2023 08:30 AM EST Infusion Therapy INF Labwork 08/04/2023 08:30 AM EST Infusion Therapy INF Infusion: Antibiotic (1 Hour) 08/04/2023 08:45 AM EST Infusion Therapy INF Labwork 08/05/2023 08:30 AM EST Infusion Therapy INF Infusion: Antibiotic (1 Hour) 08/05/2023 08:45 AM EST Infusion Therapy INF Labwork 08/06/2023 08:30 AM EST Infusion Therapy INF Infusion: Antibiotic (1 Hour) 08/06/2023 08:45 AM EST Infusion Therapy INF Labwork 08/07/2023 08:30 AM EST Infusion Therapy INF Infusion: Antibiotic (1 Hour) 08/07/2023 08:45 AM EST Infusion Therapy INF Infusion: Antibiotic (1 Hour) 08/08/2023 08:30 AM EST Infusion Therapy INF Infusion: Antibiotic (1 Hour) 08/09/2023 08:30 AM EST Infusion Therapy INF Labwork 08/10/2023 08:30 AM EST Infusion Therapy INF Infusion: Antibiotic (1 Hour) 08/10/2023 08:45 AM EST Infusion Therapy INF Labwork 08/11/2023 08:30 AM EST Infusion Therapy INF Infusion: Antibiotic (1 Hour) 08/11/2023 08:45 AM EST Infusion Therapy INF Labwork 08/12/2023 08:30 AM EST Infusion Therapy INF Infusion: Antibiotic (1 Hour) 08/12/2023 08:45 AM EST Infusion Therapy INF Labwork 08/13/2023 08:30 AM EST Infusion Therapy INF Infusion: Antibiotic (1 Hour) 08/13/2023 08:45 AM EST Infusion Therapy URO OV 08/13/2023 01:30 PM EST HANNAH VALDES APRN-ELECTRICIAN [facility] INF Labwork 2023 08:30 AM EST Infusion Therapy INF Infusion: Antibiotic (1 Hour) 2023 08:45 AM EST Infusion Therapy INF Infusion: Antibiotic (1 Hour) 08/15/2023 08:30 AM EST Infusion Therapy INF Infusion: Antibiotic (1 Hour) 08/16/2023 08:30 AM EST Infusion Therapy INF Labwork 08/17/2023 08:30 AM EST Infusion Therapy INF Infusion: Antibiotic (1 Hour) 08/17/2023 08:45 AM EST Infusion Therapy INF Labwork 08/18/2023 08:30 AM EST Infusion Therapy INF Infusion: Antibiotic (1 Hour) 08/18/2023 08:45 AM EST Infusion Therapy INF Labwork 08/19/2023 08:30 AM EST Infusion Therapy INF Infusion: Antibiotic (1 Hour) 08/19/2023 08:45 AM EST Infusion Therapy INF Labwork 08/20/2023 08:30 AM EST Infusion Therapy INF Infusion: Antibiotic (1 Hour) 08/20/2023 08:45 AM EST Infusion Therapy INF Labwork 08/21/2023 08:30 AM EST Infusion Therapy INF Infusion: Antibiotic (1 Hour) 08/21/2023 08:45 AM EST Infusion Therapy INF Infusion: Antibiotic (1 Hour) 08/22/2023 08:30 AM EST Infusion Therapy INF Infusion: Antibiotic (1 Hour) 08/23/2023 08:30 AM EST Infusion Therapy INF Labwork 08/24/2023 08:30 AM EST Infusion Therapy INF Infusion: Antibiotic (1 Hour) 08/24/2023 08:45 AM EST Infusion Therapy INF Labwork 08/25/2023 08:30 AM EST Infusion Therapy INF Infusion: Antibiotic (1 Hour) 08/25/2023 08:45 AM EST Infusion Therapy INF Labwork 08/26/2023 08:30 AM EST Infusion Therapy INF Infusion: Antibiotic (1 Hour) 08/26/2023 08:45 AM EST Infusion Therapy INF Labwork 08/27/2023 08:30 AM EST Infusion Therapy INF Infusion: Antibiotic (1 Hour) 08/27/2023 08:45 AM EST Infusion Therapy CV Office Procedure ICD 09/28/2023 10:00 AM EST [facility] CV Remote Procedure HM 12/30/2023 01:15 PM EDT [facility] Follow Up Appointments Follow Up with ANIL CUELLAR BA, MD, Infectious Disease, Infectious Disease Group When Within 1-2 days Why: 4 weeks. Where: [facility] [id number] [place] [address]- Follow Up with DILLON NORRIS DO When Within 1-2 days Why: Please call the office within 2 days to schedule a follow-up appointment. Where: [id number] [facility] [place] [address] [place] [address]- The Following Activity and Diet Have Been Ordered for You Discharge Activity - Ordered -- Activity As Tolerated, 07/29/23 12:51:00 EST Discharge Diet - Ordered -- Type of Diet: Cardiac, Fats limit: Low, 07/29/23 12:51:00 EST Someone Will Contact You Regarding These Home Health Referrals Consult Home Health - RN - Ordered -- 07/30/23 8:00:00 EST, Reason: Home IV infusions Allergies Benicar (hives) DULoxetine (chest pain) Green dye (non-codified) (hives) Latex (hives) Levaquin (rash) Plavix (hives) Red food dyes (hives) Tape (rash) Wellbutrin (paranoia) Zithromax (itching) clonazePAM (hives) multivitamin with iron (rash) penicillin (hives) sulfa drug (rash) venlafaxine (mood swings) Medications Please ask your primary doctor or pharmacist before taking any other medication not listed, including over the counter drugs, herbal medications, vitamins and or supplements as they may interact with your home medications. What How Much When Why Instructions Last Dose New acetaminophen (Tylenol 325 mg oral capsule) 650 Milligram by mouth Every 4 hours as needed for TEMP greater than 38.6 degrees Celsius New acetaminophen-oxyCODONE (acetaminophen-oxyCODONE 325 mg-5 mg oral tablet) 1 tab(s) by mouth Every 6 hours as needed for for pain Scrotal abscess Duration: 7 Days Pickup at [facility] New ertapenem (Invanz 1 g (Disch Rx)) 1 gram(s) IV Piggyback Once a day Duration: 4 week(s) New nicotine (Nicoderm CQ patch 14-7mg TAPER (Disch Rx)) 1 patch(es) Transdermal Every 24 hours Duration: 14 Days Pickup at [facility] Changed aspirin (aspirin 81 mg oral tablet, chewable) 1 tab(s) by mouth Every day Changed atorvastatin (Lipitor 40 mg oral tablet) 1 tab(s) by mouth Once a day Changed dabigatran (Pradaxa 150 mg oral capsule) 1 cap by mouth Two (2) times a day Changed metoprolol (metoprolol succinate 25 mg oral TABLET extended release) 0.5 tab(s) by mouth Two (2) times a day Do not crush or chew (controlled release) Changed pantoprazole (pantoprazole 20 mg oral enteric coated tablet) 1 tab(s) by mouth Two (2) times daily before meals Unchanged ascorbic acid (Vitamin C 500 mg oral tablet) 1 tab(s) by mouth Once a day Unchanged bumetanide (bumetanide 1 mg oral tablet) 1 tab(s) by mouth Every day Unchanged cholecalciferol (D3-50 (50,000 units) oral capsule) 1 cap by mouth Twice a week Unchanged cyclobenzaprine (cyclobenzaprine 10 mg oral tablet) 1 tab(s) by mouth Three (3) times a day as needed for for muscle spasm Unchanged diazePAM (diazePAM 10 mg oral tablet) 1 tab(s) by mouth Four (4) times a day as needed for as needed for anxiety Unchanged diclofenac topical (diclofenac 1% topical gel) 4 gram(s) Topical Four (4) times a day Unchanged fluticasone nasal (fluticasone proprionate NASAL 50 mcg/ spray) 2 spray(s) each nostril Once a day (in the morning) Unchanged gabapentin (gabapentin 100 mg oral capsule) 2 cap by mouth Once a day (in the evening) Unchanged gabapentin (gabapentin 100 mg oral capsule) 2 cap by mouth Once a day (in the morning) Unchanged glipiZIDE (glipizide 2.5 mg oral tablet) 1 tab(s) by mouth Two (2) times a day 30 minutes before breakfast Unchanged levothyroxine (levothyroxine 150 mcg (0.15 mg)/ 5 mL oral solution) 5 Milliliter by mouth Once a day on an empty stomach Unchanged levothyroxine (levothyroxine 88 mcg (0.088 mg) oral tablet) 1 tab(s) by mouth Once a day Unchanged losartan (losartan 25 mg oral tablet) 1 tab(s) by mouth Two (2) times a day Unchanged nystatin topical (nystatin 100,000 units/ g topical powder) 1 application Topical Two (2) times a day Unchanged polyethylene glycol 3350 (polyethylene glycol 3350 oral powder for reconstitution) 17 gram(s) by mouth Three (3) times a day Unchanged potassium chloride (Potassium Chloride (Eqv-K-Tab) 10 mEq oral tablet, extended release) 1 tab(s) by mouth Two (2) times a day Unchanged prednisoLONE (prednisoLONE (as sodium phosphate) 10 mg oral tablet, disintegrating) 1 tab(s) by mouth Two (2) times a day Unchanged silver sulfADIAZINE topical (Silvadene 1% topical cream) 1 application Topical Two (2) times a day Unchanged sodium chloride nasal (saline nasal 0.65% solution) 2 spray(s) each nostril As Directed as needed for dry nasal passage Unchanged triamcinolone topical (triamcinolone 0.025% topical cream) 1 application Topical Three (3) times a day Duration: 14 Days Pharmacy Information [facility]: [address] [place] [address] [address] [place], [place] [phone] What How Much When Comments Stop Taking albuterol-ipratropium (albuterol-ipratropium 2.5 mg-0.5 mg/ 3 mL inhalation solution) 3 Milliliter by inhalation Every 4 hours Stop Taking EPINEPHrine (EPINEPHrine 0.3 mg injectable kit) 1 Each Intramuscular As Directed as needed for Allergic reaction Stop Taking furosemide (Lasix 40 mg oral tablet) 1 tab(s) by mouth Once a day Please take this list to your next doctor s visit. Bring all medications you take, including over the counter medications, herbals and other supplements with you to your doctor s visit. Patients and families are reminded to discard old lists and to update any records with all medication providers or retail pharmacies. Medication Leaflets acetaminophen and oxycodone (a SEET a MIN oh fen and OX i KOE done) Endocet 10/325, Endocet 2.5/325, Endocet 5/325, Endocet 7.5/325, Nalocet, Percocet, Prolate What is the most important information I should know about acetaminophen and oxycodone? MISUSE OF OPIOID MEDICINE CAN CAUSE ADDICTION, OVERDOSE, OR . Keep the medication in a place where others cannot get to it. Taking opioid medicine during may cause life-threatening withdrawal symptoms in the . Fatal side effects can occur if you use opioid medicine with alcohol, or with other drugs that cause drowsiness or slow your breathing. Stop taking this medicine and call your doctor right away if you have skin redness or a rash that spreads and causes blistering and peeling. What is acetaminophen and oxycodone? Acetaminophen and oxycodone is a combination medicine used to relieve moderate to severe pain. Acetaminophen and oxycodone contains an opioide medicine and may be habit-forming. Acetaminophen and oxycodone may also be used for purposes not listed in this medication guide. What should I discuss with my healthcare provider before taking acetaminophen and oxycodone? You should not use this medicine if you are allergic to acetaminophen or oxycodone, or if you have: severe asthma or breathing problems; or a blockage in your stomach or intestines. Tell your doctor if you have ever had: breathing problems, sleep apnea; liver disease; a drug or alcohol addiction; kidney disease; a head injury or seizures; urination problems; or problems with your thyroid, pancreas, or gallbladder. If you use opioid medicine while you are , your baby could become dependent on the drug. This can cause life-threatening withdrawal symptoms in the baby after it is born. Babies born dependent on opioids may need medical treatment for several weeks. Ask a doctor before using opioid medicine if you are . Tell your doctor if you notice severe drowsiness or slow breathing in the nursing baby. How should I take acetaminophen and oxycodone? Follow all directions on your prescription label. Never take this medicine in larger amounts, or for longer than prescribed. An overdose can damage your liver or cause . Tell your doctor if you feel an increased urge to use more of this medicine. Never share opioid medicine with another person, especially someone with a history of drug abuse or addiction. MISUSE CAN CAUSE ADDICTION, OVERDOSE, OR . Keep the medicine in a place where others cannot get to it. Selling or giving away opioid medicine is against the law. Measure liquid medicine carefully. Use the dosing syringe provided, or use a medicine dose-measuring device (not a kitchen spoon). If you need surgery or medical tests, tell the doctor ahead of time that you are using this medicine. You should not stop using this medicine suddenly. Follow your doctor's instructions about tapering your dose. Store at room temperature away from moisture and heat. Keep track of your medicine. You should be aware if anyone is using it improperly or without a prescription. Do not keep leftover opioid medication. Just one dose can cause in someone using this medicine accidentally or improperly. Ask your pharmacist where to locate a drug take-back disposal program. If there is no take-back program, flush the unused medicine down the toilet. What happens if I miss a dose? Since this medicine is used for pain, you are not likely to miss a dose. Skip any missed dose if it is almost time for your next dose. Do not use two doses at one time. What happens if I overdose? Seek emergency medical attention or call the Poison Help line at . An overdose of this medicine can be fatal, especially in a child or other person using the medicine without a prescription. Overdose symptoms may include nausea, vomiting, sweating, severe drowsiness, pinpoint pupils, slow breathing, or no breathing. Your doctor may recommend you get naloxone (a medicine to reverse an opioid overdose) and keep it with you at all times. A person caring for you can give the naloxone if you stop breathing or don't wake up. Your caregiver must still get emergency medical help and may need to perform CPR (cardiopulmonary resuscitation) on you while waiting for help to arrive. Anyone can buy naloxone from a pharmacy or local health department. Make sure any person caring for you knows where you keep naloxone and how to use it. What should I avoid while taking acetaminophen and oxycodone? Avoid driving or operating machinery until you know how this medicine will affect you. Dizziness or drowsiness can cause falls, accidents, or severe injuries. Do not drink alcohol. Dangerous side effects or could occur. Ask a doctor or pharmacist before using any other medicine that may contain acetaminophen (sometimes abbreviated as APAP). Taking certain medications together can lead to a fatal overdose. What are the possible side effects of acetaminophen and oxycodone? Get emergency medical help if you have signs of an allergic reaction: hives; difficulty breathing; swelling of your face, lips, tongue, or throat. Opioid medicine can slow or stop your breathing, and may occur. A person caring for you should give naloxone and/or seek emergency medical attention if you have slow breathing with long pauses, blue colored lips, or if you are hard to wake up. In rare cases, acetaminophen may cause a severe skin reaction that can be fatal. This could occur even if you have taken acetaminophen in the past and had no reaction. Stop taking this medicine and call your doctor right away if you have skin redness or a rash that spreads and causes blistering and peeling. Call your doctor at once if you have: noisy breathing, sighing, shallow breathing, breathing that stops; a light-headed feeling, like you might pass out; weakness, tiredness, fever, unusual bruising or bleeding; confusion, unusual thoughts or behavior; problems with urination; liver problems--nausea, upper stomach pain, tiredness, loss of appetite, dark urine, mery-colored stools, jaundice (yellowing of the skin or eyes); low cortisol levels-- nausea, vomiting, loss of appetite, dizziness, worsening tiredness or weakness; or high levels of serotonin in the body--agitation, hallucinations, fever, sweating, shivering, fast heart rate, muscle stiffness, twitching, loss of coordination, nausea, vomiting, diarrhea. Serious breathing problems may be more likely in older adults and in those who are debilitated or have wasting syndrome or chronic breathing disorders. Common side effects include: dizziness, drowsiness, feeling tired; feelings of extreme happiness or sadness; nausea, vomiting, stomach pain; constipation; or headache. This is not a complete list of side effects and others may occur. Call your doctor for medical advice about side effects. You may report side effects to FDA at 1-789-GGV-3490. What other drugs will affect acetaminophen and oxycodone? You may have breathing problems or withdrawal symptoms if you start or stop taking certain other medicines. Tell your doctor if you also use an antibiotic, antifungal medication, heart or blood pressure medication, seizure medication, or medicine to treat HIV or hepatitis C. Opioid medication can interact with many other drugs and cause dangerous side effects or . Be sure your doctor knows if you also use: cold or allergy medicines, bronchodilator asthma/COPD medication, or a diuretic ('water pill'); medicines for motion sickness, irritable bowel syndrome, or overactive bladder; other opioids--opioid pain medicine or prescription cough medicine; a sedative like Valium--diazepam, alprazolam, lorazepam, Xanax, Klonopin, Versed, and others; drugs that make you sleepy or slow your breathing--a sleeping pill, muscle relaxer, medicine to treat mood disorders or mental illness; drugs that affect serotonin levels in your body--a stimulant, or medicine for depression, Parkinson's disease, migraine headaches, serious infections, or nausea and vomiting. This list is not complete. Other drugs may affect acetaminophen and oxycodone, including prescription and uqrt-kpf-xxynpvu medicines, vitamins, and herbal products. Not all possible interactions are listed here. Where can I get more information? Your doctor or pharmacist can provide more information about acetaminophen and oxycodone. Remember, keep this and all other medicines out of the reach of children, never share your medicines with others, and use this medication only for the indication prescribed. Every effort has been made to ensure that the information provided by [employer] ('[employer]') is accurate, up-to-date, and complete, but no guarantee is made to that effect. Drug information contained herein may be time sensitive. [facility] information has been compiled for use by healthcare practitioners and consumers in the [place] and therefore [facility] does not warrant that uses outside of the [place] are appropriate, unless specifically indicated otherwise. [facility] drug information does not endorse drugs, diagnose patients or recommend therapy. [facility] drug information is an informational resource designed to assist licensed healthcare practitioners in caring for their patients and/or to serve consumers viewing this service as a supplement to, and not a substitute for, the expertise, skill, knowledge and judgment of healthcare practitioners. The absence of a warning for a given drug or drug combination in no way should be construed to indicate that the drug or drug combination is safe, effective or appropriate for any given patient. [facility] does not assume any responsibility for any aspect of healthcare administered with the aid of information [facility] provides. The information contained herein is not intended to cover all possible uses, directions, precautions, warnings, drug interactions, allergic reactions, or adverse effects. If you have questions about the drugs you are taking, check with your doctor, nurse or pharmacist. Copyright 6098-8982 [employer]. Version: 22.. Revision Date: 03/05/2023. Education Materials Edema Edema is when you have too much fluid in your body or under your skin. Edema may make your legs, feet, and ankles swell up. Swelling is also common in looser tissues, like around your eyes. This is a common condition. It gets more common as you get older. There are many possible causes of edema. Eating too much salt (sodium) and being on your feet or sitting for a long time can cause edema in your legs, feet, and ankles. Hot weather may make edema worse. Edema is usually painless. Your skin may look swollen or shiny. Follow these instructions at home: Keep the swollen body part raised (elevated) above the level of your heart when you are sitting or lying down. Do not sit still or stand for a long time. Do not wear tight clothes. Do not wear garters on your upper legs. Exercise your legs. This can help the swelling go down. Wear elastic bandages or support stockings as told by your doctor. Eat a low-salt (low-sodium) diet to reduce fluid as told by your doctor. Depending on the cause of your swelling, you may need to limit how much fluid you drink (fluid restriction). Take tmin-xuy-xcgxgjn and prescription medicines only as told by your doctor. Contact a doctor if: Treatment is not working. You have heart, liver, or kidney disease and have symptoms of edema. You have sudden and unexplained weight gain. Get help right away if: You have shortness of breath or chest pain. You cannot breathe when you lie down. You have pain, redness, or warmth in the swollen areas. You have heart, liver, or kidney disease and get edema all of a sudden. You have a fever and your symptoms get worse all of a sudden. Summary Edema is when you have too much fluid in your body or under your skin. Edema may make your legs, feet, and ankles swell up. Swelling is also common in looser tissues, like around your eyes. Raise (elevate) the swollen body part above the level of your heart when you are sitting or lying down. Follow your doctor's instructions about diet and how much fluid you can drink (fluid restriction). This information is not intended to replace advice given to you by your health care provider. Make sure you discuss any questions you have with your health care provider. Document Released: 01/05/2009 Document Revised: 07/23/2018 Document Reviewed: 08/07/2017 [employer] Patient Education 2020 [employer] Additional Information VACCINATE! IT SAVES LIVES! Members of the community who have not yet received the COVID-19 vaccine and would like to receive it can visit one of [facility] vaccine clinics. There are many vaccine clinic locations within the [facility]. For locations and available times, please visit https://gettheshot.coronavirus.[place]i [place].gov/. It is important to note that some COVID mobile vaccine clinics are held outdoors and may be canceled in rainy or stormy conditions. To learn more about pediatric vaccinations (ages 5-11), we invite you to visit the [facility] webpage. https://www.Works.ios.org/pag es/9665-Nibto-Xswlszxmcte-Frequent ia-Uonnp-Ibyglohje.html To learn more about the COVID-19 vaccine, we invite you to visit the CDC website for a list of frequently asked questions.https://www.cdc.gov/katharine navirus/2019-ncov/vaccines/faq.htm l [facility] Patient Portal Access Instructions: Stay connected with your healthcare team and access your personal medical information anytime with the [facility] Patient Portal. Please follow the directions below to create your [facility] account: 1.Access the email account you provided upon registration to the hospital/physician office.2.Look for an invitation email from [facility].3.Open the email and access the invitation link: Accept Invitation to [facility].4.Fill in the required abdalla to create your account. To access your account, visit [email or web address]. Click the blue button labeled Access Patient Portal and then log in with the username and password that you created in the steps above. You will be able to view your test results, lab results, a summary of your visits, upcoming appointments and more. There is also a convenient messaging option where you can send secure messages to your provider. In addition, you will have the ability to download any documents or summaries to your computer and/or send the information securely to a physician. Remember that your healthcare information is confidential, so carefully consider who you will allow to register on the [facility] Patient Portal for access to your information. You can also access the [facility] Patient Portal on the [employer]. Simply click on Patient Portal and then log into your account. If you would like to receive a full copy of your medical records, please contact the [facility] Medical Records Department by calling [phone], Thursday through Thursday between 8 a.m. and 4:30 p.m. HOW TO SAFELY DISPOSE OF PRESCRIPTION MEDICATIONS Please use one of the following methods to safely dispose of your unused medications. 1.Use a drug disposal kit: the drug disposal pouch allows you to safely discard your old and unused drugs. Ask your nurse to give you one when you are discharged.2.Visit a local take-back location: Many local pharmacies and police departments have programs that collect old and unwanted prescription drugs. Call your local pharmacy or go to http://[employer]/2U6Mj9n to find one close to you.3.Make use of household items: Use cat litter or old coffee grounds to dispose medications if other options are not available. Mix your drugs with these household products, seal them in an airtight container and throw it into the garbage. Call [facility]: [phone] to be sure your drugs can be disposed of in this way. Some medicines may require a different approach.4.Never flush your medications down the toilet. IF YOU HAVE BEEN PRESCRIBED AN OPIOID FOR PAIN If you have been prescribed an opioid (such as hydrocodone, oxycodone or morphine), it is critical to understand the possible side effects and risks of opioid pain medications. Even when taken as directed, opioids can have several side effects including: Tolerance, meaning you might need to take more of a medication for the same pain relief. Nausea, vomiting and/or constipation. Sleepiness, dizziness, dry mouth, confusion, depression or itching. Physical dependence, meaning you have withdrawal symptoms when a medication is stopped, can develop within a few days. KNOW YOUR RESPONSIBILITIES It is important to know exactly how much and how often to take the opioid pain medications you are prescribed. Never take opioids in higher amounts or more often than prescribed. Do not combine opioids with alcohol or other drugs that cause drowsiness, such as benzodiazepines, also known as benzos, including diazepam and alprazolam, muscle relaxants or sleep aids. Never sell or share prescription opioids. This is illegal. Store opioids in a secure place and out of reach of others (including children, family, friends and visitors). The last page of this document has been signed and retained as a CHART COPY. Signatures Patient Education Materials Edema, Xyui-dy-Yrzm Medication Leaflets acetaminophen and oxycodone My discharge plan and instructions have been reviewed and explained to me and I,CAYLA GRANADOS understand my current condition and have read and understand these discharge instructions. I have received a written copy of the plan/instructions. If I have questions, I am aware that I should contact my doctor. Patient/Commissary Agent Signature: Date/Time: Relationship to Patient: ___ Witness Name/Signature: Date/Time: [facility] 07-29-2023 Procedure note IR Brief Post Procedure Note Preprocedure Dx: Scrotal abscess Postprocedure Dx: same Procedure: PICC Anesthesia: Local EBL: Minimal Complications: None Status: Unchanged Findings 1. 5.[address] PICC placed in right Basilic vein Plan 1. May use now Luann Mccormick PA-C Interventional Radiology Pager: [phone] IR dept: x [phone] Available on [employer] Digitally Signed by LUANN MCCORMICK PA-C on 07/29/2023 04:[address] [facility] 07-29-2023 Note IR Procedure Record Summary Primary Physician: LUANN MCCORMICK PA-C Finalized Date/Time: 07/29/23 16:38:01 Pt. Name: CAYLA GRANADOS D.O.B./Sex: 1970 Male Med Rec #: [id number] Physician: LES RINCON MD Financial #: [id number] Pt. Type: I Room/Bed: [facility]/A Admit/Disch: 07/22/23 11:31:52 - Institution: Allergies identified in patient's electronic medical record at time of printing on 07/29/23 Entry 1 Entry 2 Entry 3 Substance Benicar DULoxetine Green dye (non-codified) Reaction Type Allergy Allergy Allergy Last Modified By: STANISLAW Lew RN Jaclyn R Fisk, RN Kelly A 07/27/23 02:50:03 07/27/23 02:52:59 07/23/23 08:21:53 Entry 4 Entry 5 Entry 6 Substance Latex Levaquin Plavix Reaction Type Allergy Allergy Allergy Last Modified By: Yudelka Rico RN Jaclyn R Sutek, RN Jaclyn R A RN 06/28/23 03:39:13 07/27/23 02:51:22 07/27/23 02:51:41 Entry 7 Entry 8 Entry 9 Substance Red food dyes Tape Wellbutrin Reaction Type Allergy Allergy Allergy Last Modified By: STANISLAW Seaman Mona Sutek, RN Jaclyn R 07/23/23 08:22:34 A STANISLAW 06/28/23 03:39:39 07/27/23 02:52:31 Entry 10 Entry 11 Entry 12 Substance Zithromax clonazePAM multivitamin with iron Reaction Type Allergy Allergy Allergy Last Modified By: STANISLAW Lew RN Jaclyn R Alhmeidi-Abueteen, Mona 07/27/23 02:52:07 07/27/23 02:50:52 A STANISLAW 06/28/23 03:38:37 Entry 13 Entry 14 Entry 15 Substance penicillin sulfa drug venlafaxine Reaction Type Allergy Allergy Allergy Last Modified By: Yudelka Rico RN Jaclyn R Sutek, RN Jaclyn R A RN 06/28/23 03:37:57 07/27/23 02:50:29 07/27/23 02:53:21 Case Attendance- IR Entry 1 Entry 2 Entry 3 Case Attendee LUANN MCCORMICK PA-C, Megan R Rad Hershberger, Terra L Tech Clinical Sociologist Role Performed Primary Surgeon Scrub Technologist Circulating Technologist Details Time In 07/29/23 15:52:00 07/29/23 15:52:00 07/29/23 15:52:00 Time Out 07/29/23 16:11:00 07/29/23 16:22:00 07/29/23 16:22:00 Procedure/Preference IR PICC Line Placement IR PICC Line Placement IR PICC Line Placement Card SN SN SN Last Modified By: aKya Preciado Terra L Hershberger, Terra L Clinical Sociologist 07/29/23 Clinical Sociologist 07/29/23 Clinical Sociologist 07/29/23 16:23:05 16:22:40 16:22:40 Radiology Procedures- IR Entry 1 Procedure/Preference IR PICC Line Placement Actual Procedure IR PICC LINE PLACEMENT Card SN Primary Procedure Yes Primary Surgeon LUANN MCCORMICK PA-C Anesthesia/Sedation Local Type Additional Procedure Times Start 07/29/23 16:00:00 Stop 07/29/23 16:11:00 Specialty Service SN Radiology Procedure EBL 1 mL Last Modified By: Kaya Preciado Clinical Sociologist 07/29/23 16:23:09 Radiology Procedure Details - IR Entry 1 Radiology Sedation Case Times Sedation Total Time 0 Radiology - Fluid/Drainage Radiology Contrast Contrast Used? No Radiology Flouroscopy Fluoroscopy Used? Yes Fluoro Dose (mGy) 219 Fluoro Time 2.9 min Radiology Local Local Used? Yes Local Type: lidocaine 2% Local Dose 10 ml Radiology Procedure Site Site/Location right arm Site Condition No complications Dressing Type Tagaderm Technologist Notes 5 fr PICC pline placement into right arm; 52 cm basilic vein Last Modified By: Kaya Preciado Clinical Sociologist 07/29/23 16:24:01 General Case Data - IR Entry 1 Case Information Room IR 18 Case Level IR Level 2 Wound Class None Specialty SN Radiology Procedure ASA Class None Diagnosis Preop Diagnosis scrotal abscess Postop Same As Preop Yes Postop Diagnosis scrotal abscess Last Modified By: Kaya Preciado Clinical Sociologist 07/29/23 16:07:12 Procedure Case Times- IR Entry 1 Patient In Procedure Patient In OR 07/29/23 15:52:00 Patient Out of OR 07/29/23 16:22:00 Procedure Start/Stop Procedure Start Time 07/29/23 16:00:00 Procedure Stop Time 07/29/23 16:11:00 Last Modified By: Kaya Preciado Clinical Sociologist 07/29/23 16:22:57 Immediate Post Procedure Note - IR Entry 1 Immediate Post Yes Findings PICC placement Procedure Note displayed for Physician to review Closure Technique Closure Technique Other than Primary Last Modified By: Kaay Preciado Clinical Sociologist 07/29/23 16:00:59 Immediate Post Procedure Note - IR Signed By: LUANN MCCORMICK PA-C 07/29/23 16:33 Allergy Information- IR Entry 1 Allergies Reviewed? Yes Allergies Reviewed Patient With Last Modified By: Kaya Preciado Clinical Sociologist 07/29/23 15:56:35 Radiology Protocols/Time Out- IR Entry 1 Preprocedure Clinician Verifies Correct patient ID When Clinically Confirmation of correct using name & date Indicated side(s) and site(s), or MRN, Accurate Correct diagnostic and procedure, complete radiology tests Informed Consent, H & P available, Required update immediately blood products, prior to procedure, if implants, devices applicable and/or special equipment available OR/Procedure Room/Bedside Time 07/29/23 16:00:00 Clinician Verifies Correct patient identity including EMR & records using name and date or medical record number, Accurate procedure consent form, Correct patient position, Necessary equipment is available, Anticipated non-routine events with surgical team (case duration, estimated blood loss, patient specific concerns)., [place] patient factors for recovery and management identified with surgical team. When Applicable Confirmation correct Team Members LUANN MCCORMICK side and site marked, Present for Time Out [facility] Megan R Relevant images and Clinical SociologistOzzy Johns, results are properly Kaya Gama Clinical Sociologist labeled and appropriately displayed, Alcohol based prep dry Instrument Sterility Team Members Laisha Briggs Verifying Sterility Tech Procedure IR PICC Line Placement SN Last Modified By: Kaya Preciado Clinical Sociologist 07/29/23 16:00:49 Skin Prep- IR Entry 1 Procedure IR PICC Line Placement SN Skin Prep Prep Area Arm Side Right By Laisha Briggs Prep Agents Chloraprep Tech Hair Removal Method N/A Last Modified By: Kaya Preciado Clinical Sociologist 07/29/23 15:59:01 Patient Positioning- IR Entry 1 Procedure IR PICC Line Placement Body Position OP Supine SN Feet Uncrossed? n/a Pressure Points n/a Checked Last Modified By: Kaya Preciado Clinical Sociologist 07/29/23 16:00:35 Radiology Procedure Plan - IR Entry 1 Radiology - Nursing Care Plan Radiology - Action Plan Action Plan - Patient demonstrates Outcome Statement knowledge of the expected reseponses to the invasive procedure, Patient's value system, lifestyle, ethnicity, and culture are considered, respected, and incorporated in the perioperative plan of care., Patient is free from signs and symptoms of infection., Patient is free from signs and symptoms of injury related to positioning., Patient is free from signs and symptoms of chemical injury., Patient receives appropriate medication(s), safely administered during the perioperative period., Patient is free from signs and symptoms of injury caused by extraneous objects (equipment, instrumentation, sponges, or sharps)., Patient is free from signs and symptoms of electrical injury. Outcomes Met? Yes Site Director Kaya Preciado Clinical Sociologist Procedure Plan Last Modified By: Kaya Preciado 07/29/23 16:01:12 Case Comments Finalized By: Kaya Preciado Document Signatures Signed By: Kaya Preciado 07/29/23 16:33 Kaya Preciado 07/29/23 16:[address] [facility] 07-29-2023 Discharge summary Date of Service 07/29/2023 Discharge Diagnosis Cutaneous abscess of groin (L02.214 - ICD-10-CM) Cutaneous abscess of groin (L02.214 - ICD-10-CM) Atrioventricular block, complete (I44.2 - ICD-10-CM) Body mass index [BMI] 50.0-59.9, adult (Z68.43 - ICD-10-CM) Atelectasis (J98.11 - ICD-10-CM) Chronic respiratory failure with hypoxia (J96.11 - ICD-10-CM) Anemia, unspecified (D64.9 - ICD-10-CM) Elevated white blood cell count, unspecified (D72.829 - ICD-10-CM) Hypothyroidism, unspecified (E03.9 - ICD-10-CM) Morbid (severe) obesity due to excess calories (E66.01 - ICD-10-CM) Hyperlipidemia, unspecified (E78.5 - ICD-10-CM) Nicotine dependence, cigarettes, uncomplicated (F17.210 - ICD-10-CM) Obstructive sleep apnea (adult) (pediatric) (G47.33 - ICD-10-CM) Essential (primary) hypertension (I10 - ICD-10-CM) Chronic obstructive pulmonary disease, unspecified (J44.9 - ICD-10-CM) Gastro-esophageal reflux disease without esophagitis (K21.9 - ICD-10-CM) Scrotal pain (N50.82 - ICD-10-CM) Edema, unspecified (R60.9 - ICD-10-CM) Personal history of other venous thrombosis and embolism (Z86.718 - ICD-10-CM) Presence of cardiac pacemaker (Z95.0 - ICD-10-CM) Dependence on supplemental oxygen (Z99.81 - ICD-10-CM) Presence of coronary angioplasty implant and graft (Z95.5 - ICD-10-CM) Atherosclerotic heart disease of [place] coronary artery without angina pectoris (I25.10 - ICD-10-CM) Rheumatoid arthritis, unspecified (M06.9 - ICD-10-CM) Chest pain ([id number] A20 - PNED) Scrotal abscess (N49.2 - ICD-10-CM) Ordered: acetaminophen-oxyCODONE 325 mg-5 mg oral tablet; Dose = 1 tab(s), Oral, q6h, PRN for pain, X 7 day(s), # 12 tab(s), 0 Refill(s), Pharmacy: [facility], Scrotal abscess, 185.4, cm, 07/23/23 8:23:00 EST, Height, 203.209, kg, 07/26/23 6:44:00 EST, Dosing Weight Scrotal swelling (N50.89 - ICD-10-CM) Additional Orders: Other status: Ativan,Start: 07/29/23 12:15:00 EST, Dose = 0.5 mg, = 0.25 mL, IV Push, Once, Stop: 07/29/23 12:15:00 EST, prior to PICC line, 07/29/23 12:02:00 EST(Cancel) Ordered: Ativan,Start: 07/29/23 12:15:00 EST, Dose = 0.5 mg, = 1 tab(s), Oral, now, PRN, Anxiety, 07/29/23 12:15:00 EST Other status: CBC,07/29/23 5:00:00 EST, Next AM Draw (one day only), Blood, Once, Stop date 07/29/23 5:00:00 EST(Complete) Ordered: Consult Home Health - OT,07/29/23 12:51:00 EST, Home Therapy Order: OT Eval & Treat, Home Therapy Instruction: Full weight bearing, Reason: General Debility Ordered: Consult Home Health - PT,07/29/23 12:51:00 EST, Home Therapy Order: PT Eval & Treat, Reason: General Debility, Home Therapy Instruction: Full weight bearing Ordered: Consult Home Health - RN,07/30/23 8:00:00 EST, Reason: Home IV infusions Ordered: Discharge,07/29/23 12:51:00 EST, Discharged to: Home, home health care PTOT Ordered: Discharge Activity,Activity As Tolerated, 07/29/23 12:51:00 EST Ordered: Discharge Diet,Type of Diet: Cardiac, Fats limit: Low, 07/29/23 12:51:00 EST Discontinued: EPINEPHrine 0.3 mg injectable kit,Dose : 0.3 mg = 1 EA, Intramuscular, AsDirected, PRN Allergic reaction, # 1 kit(s), 0 Refill(s) Ordered: Invanz 1 g (Disch Rx),Dose : 1 gram(s) =, IV Piggyback, qDay, 0 Refill(s), 203.209 Ordered: Isolation - Contact,07/29/23 7:55:00 EST, Organism: Extended Spectrum beta-lactamase, Contact Precautions, Constant Order Ordered: Nicoderm CQ patch 14-7mg TAPER (Disch Rx),Dose = 1 patch(es), Transdermal, q24h, X 14 day(s), # 14 patch(es), 0 Refill(s), Pharmacy: [facility], 185.4, cm, 07/23/23 8:23:00 EST, Height, kg, 07/26/23 6:44:00 EST, Dosing Weight Discontinued: Tylenol 325 mg oral capsule,Dose : 650 mg =, Oral, BID, PRN Pain, scale 4-10, X 7 day(s), # 14 cap(s), 0 Refill(s), 08/05/23 12:55:00 EST, Pharmacy: [facility], 185.4, cm, 07/23/23 8:23:00 EST, Height, kg, 07/26/23 6:44:00 EST, Dosing Weight Ordered: Tylenol 325 mg oral capsule,Dose : 650 mg =, Oral, q4h, PRN TEMP greater than 38.6 degrees Celsius, 0 Refill(s) Discontinued: albuterol-ipratropium 2.5 mg-0.5 mg/3 mL inhalation solution,Dose = 3 mL, Inhalation, q4h, # 60 EA, 0 Refill(s) End of Orders Allergies Benicar (hives) DULoxetine (chest pain) Green dye (non-codified) (hives) Latex (hives) Levaquin (rash) Plavix (hives) Red food dyes (hives) Tape (rash) Wellbutrin (paranoia) Zithromax (itching) clonazePAM (hives) multivitamin with iron (rash) penicillin (hives) sulfa drug (rash) venlafaxine (mood swings) Consults Consult to Case Management/Social Service (Social Service/Case Management Consult) - Ordered -- 07/27/23 11:36:00 EST, Discharge Planning, [facility] at discharge for med management, medication review Consult to Occupational Therapy (OT Consult) - Ordered -- 07/28/23 15:45:00 EST, Once, Decreased safety Consult to Physical Therapy (PT Consult) - Ordered -- 07/28/23 15:45:00 EST, Once, Decreased mobility Consult to Physician - Ordered -- 07/23/23 5:01:00 EST, LUIS M HAMILTON DO, Routine, Concern for possible scrotal abscess Consult to Physician - Ordered -- 07/23/23 9:14:00 EST, DARLENE JERNIGAN DO, Routine, evaluate for right groin abscess Consult to Physician - Ordered -- 07/24/23 11:09:00 EST, GOLDIE VARGAS MD, Routine, scrotal abcess Consult to Physician - Ordered -- 07/25/23 18:38:00 EST, SHLOMO LEGGETT MD, Routine, concern for abscess on CT scan Physical Exam Vitals and Measurements T: 36.4 C (Oral) TMIN: 36.2 C (Oral) TMAX: 36.6 C (Oral) HR: 89(Apical) RR: 20 BP: 148/77 SpO2: 100% WT: 208.4 kg Weight Current Weight Dosing Weight: 203.209 kg (07/26/23) Current Weight: 208.4 kg (07/29/23) Dosing Weight: 194.5 kg (07/23/23) Current Weight: 200.7 kg (07/27/23) General Appearance: no acute distress, Head: atraumatic, perrrla, EENT:moist mucosa,, normal pharynx, normal tonsils and adenoids and tongue Neck:trachea midline, no carotid bruit, no mass or lymphadenopathy. Cardiac: RRR, no murmurs, normal S1 and S2 Lungs: Normal chest wall expansion, clear to auscultation Abdomen: Soft nontender nondistended, normal bowel sounds all quadrants, no hepatomegaly, guarding Genitourinary: No inguinal hernia, scrotal edema Musculoskeletal:Range of Motion intact in all extremities, strength intact, gait normal Extremities: No edema, Neurological:Awake alert oriented x3, cranial nerves II through XII intact, DTR intact, sensory function intact, Skin: Warm dry, pink, no rash, purpura, petechia Psychiatric: Normal affect, intact cognition, Code Status Code Status - Ordered -- 07/23/23 0:58:00 EST, Full Code, Constant Order Admission Date 07/22/2023 Discharge Date 07/29/2023 Medications New Prescription acetaminophen (Tylenol 325 mg oral capsule)650 Milligram by mouth every 4 hours as needed TEMP greater than 38.6 degrees Celsius. acetaminophen-oxyCODONE (acetaminophen-oxyCODONE 325 mg-5 mg oral tablet)1 tab(s) by mouth every 6 hours as needed for pain for 7 Days. Refills: 0. ertapenem (Invanz 1 g (Disch Rx))1 gram(s) IV Piggyback once a day for 4 week(s). nicotine (Nicoderm CQ patch 14-7mg TAPER (Disch Rx))1 patch(es) Transdermal every 24 hours for 14 Days. Refills: 0. Changed aspirin (aspirin 81 mg oral tablet, chewable)1 tab(s) by mouth every day. Refills: 0. atorvastatin (Lipitor 40 mg oral tablet)1 tab(s) by mouth once a day. Refills: 0. dabigatran (Pradaxa 150 mg oral capsule)1 cap by mouth two (2) times a day. metoprolol (metoprolol succinate 25 mg oral TABLET extended release)0.5 tab(s) by mouth two (2) times a day. Do not crush or chew (controlled release). Refills: 0. pantoprazole (pantoprazole 20 mg oral enteric coated tablet)1 tab(s) by mouth two (2) times daily before meals. Unchanged ascorbic acid (Vitamin C 500 mg oral tablet)1 tab(s) by mouth once a day. bumetanide (bumetanide 1 mg oral tablet)1 tab(s) by mouth every day. Refills: 7. cholecalciferol (D3-50 (50,000 units) oral capsule)1 cap by mouth twice a week. cyclobenzaprine (cyclobenzaprine 10 mg oral tablet)1 tab(s) by mouth three (3) times a day as needed for muscle spasm. diazePAM (diazePAM 10 mg oral tablet)1 tab(s) by mouth four (4) times a day as needed as needed for anxiety. diclofenac topical (diclofenac 1% topical gel)4 gram(s) Topical four (4) times a day. fluticasone nasal (fluticasone proprionate NASAL 50 mcg/ spray)2 spray(s) each nostril once a day (in the morning). gabapentin (gabapentin 100 mg oral capsule)2 cap by mouth once a day (in the evening). gabapentin (gabapentin 100 mg oral capsule)2 cap by mouth once a day (in the morning). glipiZIDE (glipizide 2.5 mg oral tablet)1 tab(s) by mouth two (2) times a day. 30 minutes before breakfast. levothyroxine (levothyroxine 150 mcg (0.15 mg)/5 mL oral solution)5 Milliliter by mouth once a day. on an empty stomach. levothyroxine (levothyroxine 88 mcg (0.088 mg) oral tablet)1 tab(s) by mouth once a day. losartan (losartan 25 mg oral tablet)1 tab(s) by mouth two (2) times a day. nystatin topical (nystatin 100,000 units/g topical powder)1 application Topical two (2) times a day. polyethylene glycol 3350 (polyethylene glycol 3350 oral powder for reconstitution)17 gram(s) by mouth three (3) times a day. potassium chloride (Potassium Chloride (Eqv-K-Tab) 10 mEq oral tablet, extended release)1 tab(s) by mouth two (2) times a day. prednisoLONE (prednisoLONE (as sodium phosphate) 10 mg oral tablet, disintegrating)1 tab(s) by mouth two (2) times a day. silver sulfADIAZINE topical (Silvadene 1% topical cream)1 application Topical two (2) times a day. sodium chloride nasal (saline nasal 0.65% solution)2 spray(s) each nostril As Directed as needed dry nasal passage. triamcinolone topical (triamcinolone 0.025% topical cream)1 application Topical three (3) times a day for 14 Days. Discontinued albuterol-ipratropium (albuterol-ipratropium 2.5 mg-0.5 mg/3 mL inhalation solution)3 Milliliter by inhalation every 4 hours. EPINEPHrine (EPINEPHrine 0.3 mg injectable kit)1 Each Intramuscular As Directed as needed Allergic reaction. furosemide (Lasix 40 mg oral tablet)1 tab(s) by mouth once a day. Refills: 0. Follow Up Follow Up with ANIL CUELLAR BA, MD, Infectious Disease, Infectious Disease Group When Within 1-2 days Why: 4 weeks. Where: [facility] [id number] [place] [address]- Follow Up with DILLON NORRIS DO When Within 1-2 days Why: Please call the office within 2 days to schedule a follow-up appointment. Where: [facility] [place] [address]- Follow Up Appointments Consult Home Health - OT - Ordered -- 07/29/23 12:51:00 EST, Home Therapy Order: OT Eval & Treat, Home Therapy Instruction: Full weight bearing, Reason: General Debility Consult Home Health - PT - Ordered -- 07/29/23 12:51:00 EST, Home Therapy Order: PT Eval & Treat, Reason: General Debility, Home Therapy Instruction: Full weight bearing Consult Home Health - RN - Ordered -- 07/30/23 8:00:00 EST, Reason: Home IV infusions Follow Up Labs/Studies Discharge Labs No Follow-up Labs Discharge Studies No Follow-up Studies Discharge Diet Discharge Diet - Ordered -- Type of Diet: Cardiac, Fats limit: Low, 07/29/23 12:51:00 EST Discharge Activity Discharge Activity - Ordered -- Activity As Tolerated, 07/29/23 12:51:00 EST Condition on Discharge stable improved Discharge Disposition home with home health Time Spent 50 min Digitally Signed by EMMY RIVERA MD on 07/29/2023 01:[address] [facility] 07-29-2023 Discharge summary Date of Service 07/29/2023 Discharge Diagnosis Cutaneous abscess of groin (L02.214 - ICD-10-CM) Cutaneous abscess of groin (L02.214 - ICD-10-CM) Atrioventricular block, complete (I44.2 - ICD-10-CM) Body mass index [BMI] 50.0-59.9, adult (Z68.43 - ICD-10-CM) Atelectasis (J98.11 - ICD-10-CM) Chronic respiratory failure with hypoxia (J96.11 - ICD-10-CM) Anemia, unspecified (D64.9 - ICD-10-CM) Elevated white blood cell count, unspecified (D72.829 - ICD-10-CM) Hypothyroidism, unspecified (E03.9 - ICD-10-CM) Morbid (severe) obesity due to excess calories (E66.01 - ICD-10-CM) Hyperlipidemia, unspecified (E78.5 - ICD-10-CM) Nicotine dependence, cigarettes, uncomplicated (F17.210 - ICD-10-CM) Obstructive sleep apnea (adult) (pediatric) (G47.33 - ICD-10-CM) Essential (primary) hypertension (I10 - ICD-10-CM) Chronic obstructive pulmonary disease, unspecified (J44.9 - ICD-10-CM) Gastro-esophageal reflux disease without esophagitis (K21.9 - ICD-10-CM) Scrotal pain (N50.82 - ICD-10-CM) Edema, unspecified (R60.9 - ICD-10-CM) Personal history of other venous thrombosis and embolism (Z86.718 - ICD-10-CM) Presence of cardiac pacemaker (Z95.0 - ICD-10-CM) Dependence on supplemental oxygen (Z99.81 - ICD-10-CM) Presence of coronary angioplasty implant and graft (Z95.5 - ICD-10-CM) Atherosclerotic heart disease of [place] coronary artery without angina pectoris (I25.10 - ICD-10-CM) Rheumatoid arthritis, unspecified (M06.9 - ICD-10-CM) Chest pain ([id number] A20 - PNED) Scrotal abscess (N49.2 - ICD-10-CM) Ordered: acetaminophen-oxyCODONE 325 mg-5 mg oral tablet; Dose = 1 tab(s), Oral, q6h, PRN for pain, X 7 day(s), # 12 tab(s), 0 Refill(s), Pharmacy: [facility], Scrotal abscess, 185.4, cm, 07/23/23 8:23:00 EST, Height, 203.209, kg, 07/26/23 6:44:00 EST, Dosing Weight Scrotal swelling (N50.89 - ICD-10-CM) Additional Orders: Other status: Ativan,Start: 07/29/23 12:15:00 EST, Dose = 0.5 mg, = 0.25 mL, IV Push, Once, Stop: 07/29/23 12:15:00 EST, prior to PICC line, 07/29/23 12:02:00 EST(Cancel) Ordered: Ativan,Start: 07/29/23 12:15:00 EST, Dose = 0.5 mg, = 1 tab(s), Oral, now, PRN, Anxiety, 07/29/23 12:15:00 EST Other status: CBC,07/29/23 5:00:00 EST, Next AM Draw (one day only), Blood, Once, Stop date 07/29/23 5:00:00 EST(Complete) Ordered: Consult Home Health - OT,07/29/23 12:51:00 EST, Home Therapy Order: OT Eval & Treat, Home Therapy Instruction: Full weight bearing, Reason: General Debility Ordered: Consult Home Health - PT,07/29/23 12:51:00 EST, Home Therapy Order: PT Eval & Treat, Reason: General Debility, Home Therapy Instruction: Full weight bearing Ordered: Consult Home Health - RN,07/30/23 8:00:00 EST, Reason: Home IV infusions Ordered: Discharge,07/29/23 12:51:00 EST, Discharged to: Home, home health care PTOT Ordered: Discharge Activity,Activity As Tolerated, 07/29/23 12:51:00 EST Ordered: Discharge Diet,Type of Diet: Cardiac, Fats limit: Low, 07/29/23 12:51:00 EST Discontinued: EPINEPHrine 0.3 mg injectable kit,Dose : 0.3 mg = 1 EA, Intramuscular, AsDirected, PRN Allergic reaction, # 1 kit(s), 0 Refill(s) Ordered: Invanz 1 g (Disch Rx),Dose : 1 gram(s) =, IV Piggyback, qDay, 0 Refill(s), 203.209 Ordered: Isolation - Contact,07/29/23 7:55:00 EST, Organism: Extended Spectrum beta-lactamase, Contact Precautions, Constant Order Ordered: Nicoderm CQ patch 14-7mg TAPER (Disch Rx),Dose = 1 patch(es), Transdermal, q24h, X 14 day(s), # 14 patch(es), 0 Refill(s), Pharmacy: [facility], 185.4, cm, 07/23/23 8:23:00 EST, Height, kg, 07/26/23 6:44:00 EST, Dosing Weight Discontinued: Tylenol 325 mg oral capsule,Dose : 650 mg =, Oral, BID, PRN Pain, scale 4-10, X 7 day(s), # 14 cap(s), 0 Refill(s), 08/05/23 12:55:00 EST, Pharmacy: [facility], 185.4, cm, 07/23/23 8:23:00 EST, Height, kg, 07/26/23 6:44:00 EST, Dosing Weight Ordered: Tylenol 325 mg oral capsule,Dose : 650 mg =, Oral, q4h, PRN TEMP greater than 38.6 degrees Celsius, 0 Refill(s) Discontinued: albuterol-ipratropium 2.5 mg-0.5 mg/3 mL inhalation solution,Dose = 3 mL, Inhalation, q4h, # 60 EA, 0 Refill(s) End of Orders Hospital Course 52-year-old gentleman with past medical history significant for Morbid obesity, hyperlipidemia, GERD's, hypothyroidism, complete heart block status post recent pacemaker placement, rheumatoid arthritis on chronic prednisone therapy, COPD, chronic hypoxic respiratory failure on 4 L of nasal cannula, obstructive sleep apnea on CPAP, tobacco abuse, DVT, coronary artery disease status post stents. Patient was just recently discharged from cardiology service on July 02, 2023 and at that point he had had a heart block and a pacemaker was placed. Patient presented with complaints of scrotal swelling and pain. Patient was noted to have an elevated white count. Ultrasound of the scrotum showed incidental right testicular appendix and left testicular cyst. Groin ultrasound showed possible abscess. Patient was seen by general surgery did recommended interventional radiology to perform an ultrasound-guided aspiration of the fluid thigh and included for mL dark blood which drip possibly represented liquefying hematoma. Patient was continued on IV antibiotics vancomycin and meropenem given pain control with IV morphine Percocets. Patient had been seen by urology however initially urology has signed off however with continuing increased swelling and increased pain he was reconsulted on 07/25/[address] had [address] a [address] scan with IV contrast on 07/25/2023 ordered by ms which showed the presence of a 6 to 7 cm fluid collection in the right hemiscrotum. Patient then subsequently underwent spontaneous drainage of scrotum with puslike fluid removed. Patient was reexamined by urology and hemostat was used to probe the foot the wound and there was no further undrained pockets or cavities. It was restarted on Pradaxa on 07/28/2023 having been stopped because of procedures to be planned. Patient scrotum has continued to improve patient appears to be doing much better cultures remain pending patient was seen by infectious disease because of elevated ESR. Patient today on 1227 is going to get a PICC line he is being switched to Invanz based on the sensitivity of the culture which shows Klebsiella pneumoniae which is ESBL positive patient will be discharged home with 4 weeks of antibiotics he will follow-up with Dr. Vernon Singh. Patient will be provided with home health care. Patient will resume his home medications as indicated including chronic prednisone therapy. Overall patient appears to be doing well he will continue his home medications including the Pradaxa. Pain medicine is Percocet. Patient is overall medically stable for discharge home. Allergies Benicar (hives) DULoxetine (chest pain) Green dye (non-codified) (hives) Latex (hives) Levaquin (rash) Plavix (hives) Red food dyes (hives) Tape (rash) Wellbutrin (paranoia) Zithromax (itching) clonazePAM (hives) multivitamin with iron (rash) penicillin (hives) sulfa drug (rash) venlafaxine (mood swings) Consults Consult to Case Management/Social Service (Social Service/Case Management Consult) - Ordered -- 07/27/23 11:36:00 EST, Discharge Planning, [facility] at discharge for med management, medication review Consult to Occupational Therapy (OT Consult) - Ordered -- 07/28/23 15:45:00 EST, Once, Decreased safety Consult to Physical Therapy (PT Consult) - Ordered -- 07/28/23 15:45:00 EST, Once, Decreased mobility Consult to Physician - Ordered -- 07/23/23 5:01:00 EST, LUIS M HAMILTON DO, Routine, Concern for possible scrotal abscess Consult to Physician - Ordered -- 07/23/23 9:14:00 EST, DARLENE JERNIGAN DO, Routine, evaluate for right groin abscess Consult to Physician - Ordered -- 07/24/23 11:09:00 EST, GOLDIE VARGAS MD, Routine, scrotal abcess Consult to Physician - Ordered -- 07/25/23 18:38:00 EST, SHLOMO LEGGETT MD, Routine, concern for abscess on CT scan Physical Exam Vitals and Measurements T: 36.4 C (Oral) TMIN: 36.2 C (Oral) TMAX: 36.6 C (Oral) HR: 89(Apical) RR: 20 BP: 148/77 SpO2: 100% WT: 208.4 kg Weight Current Weight Dosing Weight: 203.209 kg (07/26/23) Current Weight: 208.4 kg (07/29/23) Dosing Weight: 194.5 kg (07/23/23) Current Weight: 200.7 kg (07/27/23) General Appearance: no acute distress, morbid obesity Head: atraumatic, perrrla, EENT:moist mucosa,, normal pharynx, normal tonsils and adenoids and tongue Neck:trachea midline, no carotid bruit, no mass or lymphadenopathy. Cardiac: RRR, no murmurs, normal S1 and S2 Lungs: Normal chest wall expansion, clear to auscultation Abdomen: Soft nontender distended, normal bowel sounds all quadrants, no hepatomegaly, guarding Genitourinary: No inguinal hernia, scrotum swoillen Musculoskeletal:Range of Motion intact in all extremities, strength intact, Extremities: No edema, Neurological:Awake alert oriented x3, cranial nerves II through XII intact, DTR intact, sensory function intact, Skin: Warm dry, pink, no rash, purpura, petechia Psychiatric: Normal affect, intact cognition, Code Status Code Status - Ordered -- 07/23/23 0:58:00 EST, Full Code, Constant Order Admission Date 07/22/2023 Discharge Date 07/29/2023 Medications New Prescription acetaminophen (Tylenol 325 mg oral capsule)650 Milligram by mouth every 4 hours as needed TEMP greater than 38.6 degrees Celsius. acetaminophen-oxyCODONE (acetaminophen-oxyCODONE 325 mg-5 mg oral tablet)1 tab(s) by mouth every 6 hours as needed for pain for 7 Days. Refills: 0. ertapenem (Invanz 1 g (Disch Rx))1 gram(s) IV Piggyback once a day for 4 week(s). nicotine (Nicoderm CQ patch 14-7mg TAPER (Disch Rx))1 patch(es) Transdermal every 24 hours for 14 Days. Refills: 0. Changed aspirin (aspirin 81 mg oral tablet, chewable)1 tab(s) by mouth every day. Refills: 0. atorvastatin (Lipitor 40 mg oral tablet)1 tab(s) by mouth once a day. Refills: 0. dabigatran (Pradaxa 150 mg oral capsule)1 cap by mouth two (2) times a day. metoprolol (metoprolol succinate 25 mg oral TABLET extended release)0.5 tab(s) by mouth two (2) times a day. Do not crush or chew (controlled release). Refills: 0. pantoprazole (pantoprazole 20 mg oral enteric coated tablet)1 tab(s) by mouth two (2) times daily before meals. Unchanged ascorbic acid (Vitamin C 500 mg oral tablet)1 tab(s) by mouth once a day. bumetanide (bumetanide 1 mg oral tablet)1 tab(s) by mouth every day. Refills: 7. cholecalciferol (D3-50 (50,000 units) oral capsule)1 cap by mouth twice a week. cyclobenzaprine (cyclobenzaprine 10 mg oral tablet)1 tab(s) by mouth three (3) times a day as needed for muscle spasm. diazePAM (diazePAM 10 mg oral tablet)1 tab(s) by mouth four (4) times a day as needed as needed for anxiety. diclofenac topical (diclofenac 1% topical gel)4 gram(s) Topical four (4) times a day. fluticasone nasal (fluticasone proprionate NASAL 50 mcg/ spray)2 spray(s) each nostril once a day (in the morning). gabapentin (gabapentin 100 mg oral capsule)2 cap by mouth once a day (in the evening). gabapentin (gabapentin 100 mg oral capsule)2 cap by mouth once a day (in the morning). glipiZIDE (glipizide 2.5 mg oral tablet)1 tab(s) by mouth two (2) times a day. 30 minutes before breakfast. levothyroxine (levothyroxine 150 mcg (0.15 mg)/5 mL oral solution)5 Milliliter by mouth once a day. on an empty stomach. levothyroxine (levothyroxine 88 mcg (0.088 mg) oral tablet)1 tab(s) by mouth once a day. losartan (losartan 25 mg oral tablet)1 tab(s) by mouth two (2) times a day. nystatin topical (nystatin 100,000 units/g topical powder)1 application Topical two (2) times a day. polyethylene glycol 3350 (polyethylene glycol 3350 oral powder for reconstitution)17 gram(s) by mouth three (3) times a day. potassium chloride (Potassium Chloride (Eqv-K-Tab) 10 mEq oral tablet, extended release)1 tab(s) by mouth two (2) times a day. prednisoLONE (prednisoLONE (as sodium phosphate) 10 mg oral tablet, disintegrating)1 tab(s) by mouth two (2) times a day. silver sulfADIAZINE topical (Silvadene 1% topical cream)1 application Topical two (2) times a day. sodium chloride nasal (saline nasal 0.65% solution)2 spray(s) each nostril As Directed as needed dry nasal passage. triamcinolone topical (triamcinolone 0.025% topical cream)1 application Topical three (3) times a day for 14 Days. Discontinued albuterol-ipratropium (albuterol-ipratropium 2.5 mg-0.5 mg/3 mL inhalation solution)3 Milliliter by inhalation every 4 hours. EPINEPHrine (EPINEPHrine 0.3 mg injectable kit)1 Each Intramuscular As Directed as needed Allergic reaction. furosemide (Lasix 40 mg oral tablet)1 tab(s) by mouth once a day. Refills: 0. Follow Up Follow Up with ANIL CUELLAR BA, MD, Infectious Disease, Infectious Disease Group When Within 1-2 days Why: 4 weeks. Where: [facility] [id number] [place] [address]- Follow Up with DILLON NORRIS DO When Within 1-2 days Why: Please call the office within 2 days to schedule a follow-up appointment. Where: [address] [place] [id number]- Follow Up Appointments Consult Home Health - OT - Ordered -- 07/29/23 12:51:00 EST, Home Therapy Order: OT Eval & Treat, Home Therapy Instruction: Full weight bearing, Reason: General Debility Consult Home Health - PT - Ordered -- 07/29/23 12:51:00 EST, Home Therapy Order: PT Eval & Treat, Reason: General Debility, Home Therapy Instruction: Full weight bearing Consult Home Health - RN - Ordered -- 07/30/23 8:00:00 EST, Reason: Home IV infusions Follow Up Labs/Studies Discharge Labs No Follow-up Labs Discharge Studies No Follow-up Studies Discharge Diet Discharge Diet - Ordered -- Type of Diet: Cardiac, Fats limit: Low, 07/29/23 12:51:00 EST Discharge Activity Discharge Activity - Ordered -- Activity As Tolerated, 07/29/23 12:51:00 EST Condition on Discharge stable , improved Discharge Disposition home with home health care Time Spent 50 min Digitally Signed by EMMY RIVERA MD on 07/29/2023 01:[address] [facility] 07-29-2023 Infectious disease Progress note Date of Service 07/29/2023 Objective Vitals and Measurements T: 36.4 C (Oral) TMIN: 36.2 C (Oral) TMAX: 36.6 C (Oral) HR: 89(Apical) RR: 20 BP: 148/77 SpO2: 100% WT: 208.4 kg Physical Exam Chart reviewed, patient examined. Patient is alert and oriented x3, anxious but FSC, resting in bed watching TV on cellphone. No c/o NV. Reports mild constipation but is passing gas, patient with 0 documented BMs in the last 24 hours. Denies SOB currently at rest, reports chronic cough is at baseline. Denies chills or sweats, reports feeling warm at times. Denies dysuria or any troubles urinating. Reports ongoing scrotal swelling and discomfort, improving since admission but still present. Reports lower back pain he is attributing to the hospital bed. No other new complaints this AM, patient reports he is going home today. Respirations easy and nonlabored, 100% on NC4L. Patient has remained afebrile for the last 24 hours. Patient is in Contact Isolation. ESR >130 CRP 28.3 FOCUSED ASSESSMENT: CVS: Regular S1S2, left chest pacer in place LUNGS: Diminished bilaterally, denies SOB, occasional cough, on [id number] per patient ABDOMEN: Rounded, soft, nontender (left sided tenderness due to rib fx per patient reports), + bowel sounds, passing gas, mild constipation SKIN: No rashes noted, diffuse ecchymosis/abrasions, scrotal erythema/swelling/itching SCOTT, left chest pink/abrasion noted ELECTRONIC SCALE TESTER-no drainage noted to bedding at this time INCISIONS/DRESSINGS: None EXTREMITIES: +1-2 generalized edema, generalized weakness, left sided rib pain due to fx per patient reports LINES/TUBES/DRAINS: LFA IV dressing dry & intact, no drainage or erythema, mildly pink at site. CURRENT ANTIBIOTICS: Meropenem 1g IV Q8h 07/23 - present CULTURE RESULTS/MONIKA: 07/22 Urine Culture -F 10,000 - 50,000 cfu/ml Multiple bacterial morphotypes present Probable Contamination 07/23 Blood Cultures 09/04 no growth to date -F 07/23 Culture Body Fluid (scrotal abscess) -P No growth to date 07/25 Wound Culture Aerobic (scrotum abscess) -P Light Klebsiella pneumoniae ESBL Light normal skin arsalan present Neisseria gonorrhoeae: Negative Weight Current Weight Dosing Weight: 203.209 kg (07/26/23) Current Weight: 208.4 kg (07/29/23) Dosing Weight: 194.5 kg (07/23/23) Current Weight: 200.7 kg (07/27/23) Medications Medications (33) Active Scheduled: (20) ascorbic acid 500 mg tablet 500 mg 1 tab(s), Oral, qDay aspirin 81 mg Chewable 81 mg 1 tab(s), Oral, Daily atorvastatin 40 mg tablet 40 mg 1 tab(s), Oral, qDay cholecalciferol 1250 mcg capsule (Vit D3 50,000 unit(s)) 1,250 mcg 1 cap(s), Oral, Thursday & Thursday dabigatran 150 mg capsule 150 mg 1 cap(s), Oral, BID fluticasone nasal 0.05 mg/inh Frost 100 mcg 2 spray(s), Nostril, each, qAM furosemide 40 mg tablet 40 mg 1 tab(s), Oral, BID gabapentin 100 mg Capsule 200 mg 2 cap(s), Oral, qAM gabapentin 100 mg Capsule 100 mg 1 cap(s), Oral, qPM hydroxyzine pamoate 25 mg capsule 25 mg 1 cap(s), Oral, Once levothyroxine 150 mcg tablet 150 mcg 1 tab(s), Oral, qDay levothyroxine 88 mcg tablet 88 mcg 1 tab(s), Oral, qDay meropenem 1,000 mg, IV Piggyback, q8h metoprolol succinate 25 mg ER tablet 12.5 mg 0.5 tab(s), Oral, BID Nicoderm patch REMOVAL 1 EA, Miscellaneous, q24h nicotine 14 mg/24 hr ER patch 14 mg 1 patch(es), Transdermal, q24h pantoprazole 20 mg EC tablet 20 mg 1 tab(s), Oral, BIDAC potassium chloride 20 mEq ER tablet 10 mEq 0.5 tab(s), Oral, BID prednisoLONE base 15 mg/5 mL syrup (60 mL) 10 mg 3.33 mL, Oral, BID silver sulfADIAZINE topical 1% Cream 50 Gram(s) 1 leandro, Topical, BID Continuous: (0) PRN: (13) acetaminophen 325 mg Tablet 650 mg 2 tab(s), Oral, q4h acetaminophen 325 mg Tablet 650 mg 2 tab(s), Oral, q4h acetaminophen-OXYcodone 325 mg-5 mg Tablet 1 tab(s), Oral, q4h albuterol - ipratropium 2.5 mg-0.5 mg/3 mL Inhal Milka UD 3 mL, Inhalation, q4hRT clonidine 0.1 mg tablet 0.1 mg 1 tab(s), Oral, q4h dextrose 50% Solution Disp syringe 50 mL 12.5 gram(s) 25 mL, IV Push, AsDirected guaifenesin 100 mg/5 mL Liquid SUGAR-FREE 120 mL 200 mg 10 mL, Oral, q4h hydralazine 10 mg Tablet 10 mg 1 tab(s), Oral, q3h melatonin 3 mg tablet 3 mg 1 tab(s), Oral, qHS morphine 4 mg/mL 1mL INJ 4 mg 1 mL, IV Push, q4h ondansetron 2 mg/ 1 mL 2 mL INJ 4 mg 2 mL, IV Push, q4h polyethylene glycol 3350 - UD packet 17 gram(s) 15 mL, Oral, qDay sodium chloride nasal 0.65% Frost 1 spray(s), Nostril, each, AsDirected Lab Results No 36 Hour Lab Data Imaging Results and Diagnostics CT Abdomen/Pelvis w/Contrast Result Date: July 25, 2023 Verified By: LUCIUS JIMÉNEZ MD CLINICAL STATEMENT: IMPRESSION: There is extensive scrotal swelling with a more localized complex fluidcollection concerning for an abscess within the right hemiscrotum withmeasurements as above. A single locule of air is favored to be within thegluteal crease rather than subcutaneous tissues. No acute process within the abdomen. I have reviewed this report and agree with the resident findings andinterpretation. IR Aspiration/Drainage Result Date: July 23, 2023 Verified By: LUCIUS GANN MD, Ph.D CLINICAL STATEMENT: IMPRESSION: Small amount of dark red fluid was obtained suggesting a liquefying hematoma. US Scrotum Contents Result Date: July 22, 2023 Verified By: LES DWYER MD CLINICAL STATEMENT: IMPRESSION: No evidence of acute testicular torsion. Small bilateral hydroceles. Incidentally noted right testicular appendix and left testicular cyst. I have personally reviewed the images of this examination and agree with theresident's findings and interpretation. US Groin Right Result Date: July 22, 2023 Verified By: LES DWYER MD CLINICAL STATEMENT: IMPRESSION: Subcutaneous fluid collection with tract extending to the surface of the skinwhere there is skin thickening is most compatible with an abscess. Directvisualization is recommended for confirmation of this finding. Note adjacentvascularity is seen. Clinical follow-up is recommended as warranted. I have personally reviewed the images of this examination and agree with theresident's findings and interpretation. XR Chest 1 View Result Date: July 22, 2023 Verified By: BEBETO URBINA MD CLINICAL STATEMENT: IMPRESSION: 1. Bandlike parenchymal opacities in the central and lower lungs could relateto atelectasis, scarring or other pathology. There is also a dense but notclearly calcified right lung nodule. For all of these findings, CTcharacterization advised Problem List Chest pain Scrotal swelling Scrotal abscess right groin abscess Digitally Signed by Krysta Waggoner RN on 07/29/2023 09:[address] [facility] 07-29-2023 Infectious disease Progress note Date of Service 07/29/2023 Objective Vitals and Measurements T: 36.4 C (Oral) TMIN: 36.2 C (Oral) TMAX: 36.6 C (Oral) HR: 89(Apical) RR: 20 BP: 148/77 SpO2: 100% WT: 208.4 kg Physical Exam Chart reviewed, patient examined. Patient is alert and oriented x3, anxious but FSC, resting in bed watching TV on cellphone. No c/o NV. Reports mild constipation but is passing gas, patient with 0 documented BMs in the last 24 hours. Denies SOB currently at rest, reports chronic cough is at baseline. Denies chills or sweats, reports feeling warm at times. Denies dysuria or any troubles urinating. Reports ongoing scrotal swelling and discomfort, improving since admission but still present. Reports lower back pain he is attributing to the hospital bed. No other new complaints this AM, patient reports he is going home today. Respirations easy and nonlabored, 100% on NC4L. Patient has remained afebrile for the last 24 hours. Patient is in Contact Isolation. ESR >130 CRP 28.3 FOCUSED ASSESSMENT: CVS: Regular S1S2, left chest pacer in place LUNGS: Diminished bilaterally, denies SOB, occasional cough, on [id number] per patient ABDOMEN: Rounded, soft, nontender (left sided tenderness due to rib fx per patient reports), + bowel sounds, passing gas, mild constipation SKIN: No rashes noted, diffuse ecchymosis/abrasions, scrotal erythema/swelling/itching ELECTRONIC SCALE TESTER, left chest pink/abrasion noted SCOTT-no drainage noted to bedding at this time INCISIONS/DRESSINGS: None EXTREMITIES: +1-2 generalized edema, generalized weakness, left sided rib pain due to fx per patient reports LINES/TUBES/DRAINS: LFA IV dressing dry & intact, no drainage or erythema, mildly pink at site. CURRENT ANTIBIOTICS: Meropenem 1g IV Q8h 07/23 - present CULTURE RESULTS/MONIKA: 07/22 Urine Culture -F 10,000 - 50,000 cfu/ml Multiple bacterial morphotypes present Probable Contamination 07/23 Blood Cultures 09/04 no growth to date -F 07/23 Culture Body Fluid (scrotal abscess) -P No growth to date 07/25 Wound Culture Aerobic (scrotum abscess) -P Light Klebsiella pneumoniae ESBL Light normal skin arsalan present Neisseria gonorrhoeae: Negative Weight Current Weight Dosing Weight: 203.209 kg (07/26/23) Current Weight: 208.4 kg (07/29/23) Dosing Weight: 194.5 kg (07/23/23) Current Weight: 200.7 kg (07/27/23) Medications Medications (33) Active Scheduled: (20) ascorbic acid 500 mg tablet 500 mg 1 tab(s), Oral, qDay aspirin 81 mg Chewable 81 mg 1 tab(s), Oral, Daily atorvastatin 40 mg tablet 40 mg 1 tab(s), Oral, qDay cholecalciferol 1250 mcg capsule (Vit D3 50,000 unit(s)) 1,250 mcg 1 cap(s), Oral, Thursday & Thursday dabigatran 150 mg capsule 150 mg 1 cap(s), Oral, BID fluticasone nasal 0.05 mg/inh Frost 100 mcg 2 spray(s), Nostril, each, qAM furosemide 40 mg tablet 40 mg 1 tab(s), Oral, BID gabapentin 100 mg Capsule 200 mg 2 cap(s), Oral, qAM gabapentin 100 mg Capsule 100 mg 1 cap(s), Oral, qPM hydroxyzine pamoate 25 mg capsule 25 mg 1 cap(s), Oral, Once levothyroxine 150 mcg tablet 150 mcg 1 tab(s), Oral, qDay levothyroxine 88 mcg tablet 88 mcg 1 tab(s), Oral, qDay meropenem 1,000 mg, IV Piggyback, q8h metoprolol succinate 25 mg ER tablet 12.5 mg 0.5 tab(s), Oral, BID Nicoderm patch REMOVAL 1 EA, Miscellaneous, q24h nicotine 14 mg/24 hr ER patch 14 mg 1 patch(es), Transdermal, q24h pantoprazole 20 mg EC tablet 20 mg 1 tab(s), Oral, BIDAC potassium chloride 20 mEq ER tablet 10 mEq 0.5 tab(s), Oral, BID prednisoLONE base 15 mg/5 mL syrup (60 mL) 10 mg 3.33 mL, Oral, BID silver sulfADIAZINE topical 1% Cream 50 Gram(s) 1 leandro, Topical, BID Continuous: (0) PRN: (13) acetaminophen 325 mg Tablet 650 mg 2 tab(s), Oral, q4h acetaminophen 325 mg Tablet 650 mg 2 tab(s), Oral, q4h acetaminophen-OXYcodone 325 mg-5 mg Tablet 1 tab(s), Oral, q4h albuterol - ipratropium 2.5 mg-0.5 mg/3 mL Inhal Milka UD 3 mL, Inhalation, q4hRT clonidine 0.1 mg tablet 0.1 mg 1 tab(s), Oral, q4h dextrose 50% Solution Disp syringe 50 mL 12.5 gram(s) 25 mL, IV Push, AsDirected guaifenesin 100 mg/5 mL Liquid SUGAR-FREE 120 mL 200 mg 10 mL, Oral, q4h hydralazine 10 mg Tablet 10 mg 1 tab(s), Oral, q3h melatonin 3 mg tablet 3 mg 1 tab(s), Oral, qHS morphine 4 mg/mL 1mL INJ 4 mg 1 mL, IV Push, q4h ondansetron 2 mg/ 1 mL 2 mL INJ 4 mg 2 mL, IV Push, q4h polyethylene glycol 3350 - UD packet 17 gram(s) 15 mL, Oral, qDay sodium chloride nasal 0.65% Frost 1 spray(s), Nostril, each, AsDirected Lab Results No 36 Hour Lab Data Imaging Results and Diagnostics CT Abdomen/Pelvis w/Contrast Result Date: July 25, 2023 Verified By: LUCIUS JIMÉNEZ MD CLINICAL STATEMENT: IMPRESSION: There is extensive scrotal swelling with a more localized complex fluidcollection concerning for an abscess within the right hemiscrotum withmeasurements as above. A single locule of air is favored to be within thegluteal crease rather than subcutaneous tissues. No acute process within the abdomen. I have reviewed this report and agree with the resident findings andinterpretation. IR Aspiration/Drainage Result Date: July 23, 2023 Verified By: LUCIUS GANN MD, Ph.D CLINICAL STATEMENT: IMPRESSION: Small amount of dark red fluid was obtained suggesting a liquefying hematoma. US Scrotum Contents Result Date: July 22, 2023 Verified By: LES DWYER MD CLINICAL STATEMENT: IMPRESSION: No evidence of acute testicular torsion. Small bilateral hydroceles. Incidentally noted right testicular appendix and left testicular cyst. I have personally reviewed the images of this examination and agree with theresident's findings and interpretation. US Groin Right Result Date: July 22, 2023 Verified By: LES DWYER MD CLINICAL STATEMENT: IMPRESSION: Subcutaneous fluid collection with tract extending to the surface of the skinwhere there is skin thickening is most compatible with an abscess. Directvisualization is recommended for confirmation of this finding. Note adjacentvascularity is seen. Clinical follow-up is recommended as warranted. I have personally reviewed the images of this examination and agree with theresident's findings and interpretation. XR Chest 1 View Result Date: July 22, 2023 Verified By: BEBETO URBINA MD CLINICAL STATEMENT: IMPRESSION: 1. Bandlike parenchymal opacities in the central and lower lungs could relateto atelectasis, scarring or other pathology. There is also a dense but notclearly calcified right lung nodule. For all of these findings, CTcharacterization advised Problem List Chest pain Scrotal swelling Scrotal abscess right groin abscess Digitally Signed by Krysta Waggoner RN on 07/29/2023 09:[address] [facility] 07-28-2023 Note . MICRO - Microbiology PROCEDURE: Blood Culture (bacterial) [*1] SOURCE: Blood BODY SITE: COLLECTED DATE/TIME: 07/23/2023 13:41 EST RECEIVED DATE/TIME: 07/23/2023 14:45 EST START DATE/TIME: 07/23/2023 14:45 EST FREE TEXT SOURCE: FINAL REPORTS Final Report [] Verified Date/Time/Personnel: 07/28/2023 14:59 EST Blood Culture: No Growth at 5 days. PRELIMINARY REPORTS Preliminary Report [] Verified Date/Time/Personnel: 07/23/2023 16:00 EST Culture has been received in lab and is no growth to date. Routine cultures are held for 5 days. Performing Locations *1: This test was performed at: [address], [facility] , [facility] ([place]) 07-28-2023 Note . MICRO - Microbiology PROCEDURE: Blood Culture (bacterial) [*1] SOURCE: Blood BODY SITE: COLLECTED DATE/TIME: 07/23/2023 13:41 EST RECEIVED DATE/TIME: 07/23/2023 14:45 EST START DATE/TIME: 07/23/2023 14:45 EST FREE TEXT SOURCE: FINAL REPORTS Final Report [] Verified Date/Time/Personnel: 07/28/2023 14:59 EST Blood Culture: No Growth at 5 days. PRELIMINARY REPORTS Preliminary Report [] Verified Date/Time/Personnel: 07/23/2023 16:00 EST Culture has been received in lab and is no growth to date. Routine cultures are held for 5 days. Performing Locations *1: This test was performed at: [address], [facility] , [facility] ([place]) 07-28-2023 Note Date of Service 07/28/2023 Chief Complaint scrotal pain Subjective Patient seen and examined. Discussed with staff. Patient is lying in bed, very uncomfortable states that he is having some discomfort especially in the bed unable to move around. Currently no nausea vomiting abdominal pain chest pain appetite is improving. Patient is very anxious to go home. Objective Vitals and Measurements T: 36.6 C (Oral) TMIN: 36.6 C (Oral) TMAX: 36.9 C (Oral) HR: 82(Apical) RR: 18 BP: 138/67 SpO2: 96% General Appearance: no acute distress, Head: atraumatic, perrrla, EENT:moist mucosa,, normal pharynx, normal tonsils and adenoids and tongue Neck:trachea midline, no carotid bruit, no mass or lymphadenopathy. Cardiac: RRR, no murmurs, normal S1 and S2 Lungs: Normal chest wall expansion, clear to auscultation Abdomen: Soft nontender nondistended, normal bowel sounds all quadrants, no hepatomegaly, guarding Genitourinary: No inguinal hernia, Musculoskeletal:Range of Motion intact in all extremities, strength intact Extremities: No edema, Neurological:Awake alert oriented x3, cranial nerves II through XII intact, DTR intact, sensory function intact, Skin: Warm dry, pink, no rash, purpura, petechia Psychiatric: Normal affect, intact cognition, Intake and Output 7AM Yesterday to 7AM Today Intake and Output (Last 24 hours) Intake Oral Intake 1220.00 Output Urine Voided 100.00 Stool Count 0.00 Urine Count 9.00 Total Summary Total Intake 1220.00 Total Output 100.00 Fluid Balance 1120.00 Physical Exam Weight Current Weight Dosing Weight: 203.209 kg (07/26/23) Current Weight: 200.7 kg (07/27/23) Dosing Weight: 194.5 kg (07/23/23) Medications Medications (32) Active Scheduled: (19) ascorbic acid 500 mg tablet 500 mg 1 tab(s), Oral, qDay aspirin 81 mg Chewable 81 mg 1 tab(s), Oral, Daily atorvastatin 40 mg tablet 40 mg 1 tab(s), Oral, qDay cholecalciferol 1250 mcg capsule (Vit D3 50,000 unit(s)) 1,250 mcg 1 cap(s), Oral, Thursday & Thursday dabigatran 150 mg capsule 150 mg 1 cap(s), Oral, BID fluticasone nasal 0.05 mg/inh Frost 100 mcg 2 spray(s), Nostril, each, qAM furosemide 40 mg tablet 40 mg 1 tab(s), Oral, BID gabapentin 100 mg Capsule 200 mg 2 cap(s), Oral, qAM gabapentin 100 mg Capsule 200 mg 2 cap(s), Oral, qPM levothyroxine 150 mcg tablet 150 mcg 1 tab(s), Oral, qDay levothyroxine 88 mcg tablet 88 mcg 1 tab(s), Oral, qDay meropenem 1,000 mg, IV Piggyback, q8h metoprolol succinate 25 mg ER tablet 12.5 mg 0.5 tab(s), Oral, BID Nicoderm patch REMOVAL 1 EA, Miscellaneous, q24h nicotine 14 mg/24 hr ER patch 14 mg 1 patch(es), Transdermal, q24h pantoprazole 20 mg EC tablet 20 mg 1 tab(s), Oral, BIDAC potassium chloride 20 mEq ER tablet 10 mEq 0.5 tab(s), Oral, BID prednisoLONE base 15 mg/5 mL syrup (60 mL) 10 mg 3.33 mL, Oral, BID silver sulfADIAZINE topical 1% Cream 50 Gram(s) 1 leandro, Topical, BID Continuous: (0) PRN: (13) acetaminophen 325 mg Tablet 650 mg 2 tab(s), Oral, q4h acetaminophen 325 mg Tablet 650 mg 2 tab(s), Oral, q4h acetaminophen-OXYcodone 325 mg-5 mg Tablet 1 tab(s), Oral, q4h albuterol - ipratropium 2.5 mg-0.5 mg/3 mL Inhal Milka UD 3 mL, Inhalation, q4hRT clonidine 0.1 mg tablet 0.1 mg 1 tab(s), Oral, q4h dextrose 50% Solution Disp syringe 50 mL 12.5 gram(s) 25 mL, IV Push, AsDirected guaifenesin 100 mg/5 mL Liquid SUGAR-FREE 120 mL 200 mg 10 mL, Oral, q4h hydralazine 10 mg Tablet 10 mg 1 tab(s), Oral, q3h melatonin 3 mg tablet 3 mg 1 tab(s), Oral, qHS morphine 4 mg/mL 1mL INJ 4 mg 1 mL, IV Push, q4h ondansetron 2 mg/ 1 mL 2 mL INJ 4 mg 2 mL, IV Push, q4h polyethylene glycol 3350 - UD packet 17 gram(s) 15 mL, Oral, qDay sodium chloride nasal 0.65% Frost 1 spray(s), Nostril, each, AsDirected Lab Results 07/27 06:08 WBC: 12.9 H Hgb: 10.3 L Hct: 34.8 L Platelet: 279 Neutrophil %: 73.0 EKG No qualifying data available. Assessment/Plan Chest pain Scrotal swelling Orders: dabigatran, Start: 07/27/23 21:00:00 EST, Dose = 150 mg, = 1 cap(s), Oral, BID, Indication for Use Treatment of VTE/PE ( Chronic), 07/27/23 17:30:00 EST Complete Blood Count Consult to Occupational Therapy Consult to Physical Therapy Assessment and plan 1: Acute scrotal abscess noted on CT scan A/P done 07/25/2023, status post CT-guided drainage of thigh hematoma done by IR on 07/23/2023 remains no growth. Currently on meropenem, seen by urology on reconsult and abscess probed with hemostat and no further surgery planned. Scrotum is less swollen, today. Pain control adequate with IV morphine for breakthrough. . . infectious disease also on case. Continue with scrotal sling. Purulent drainage sent for culture and is showing kleb pneumoniae and light skin arsalan, Cultures pending. 2: Morbid obesity, with BERT will continue with CPAP as needed for obstructive sleep apnea. 3: Coronary artery disease with stents on aspirin, taken off brilinta and remains on statin. 4: Complete heart block status post pacemaker no acute issues identified. 5: Rheumatoid arthritis: baseline, not taking any prednisone at home 6: History of COPD continue with oxygen as needed. Patient has chronic hypoxic respiratory failure and uses 4 L of oxygen at home. 7: Tobacco abuse: counseled at length. 8: dvt :lrestart 07/27/2023 and will increase the dose to 150 mg bid since renal function is normal. Patient is high risk due to his complicated medical history, comorbid conditions including severe morbid obesity, obstructive sleep apnea, chronic respiratory failure. infectious disease with regards to adjustment of antibiotics. Patient noted to have hematoma on CT-guided drainage in thigh, but right sided scrotal abscess started to drain, cultures sent, appreciate urology input. Will restart pradaxa, cbc, bm,p in am. dc planning. PT OT added will add home health care informed psych social worker. Discharge planning once MONIKA obtained patient will be switched to oral antibiotic per infectious disease. Time Spent 35 min Digitally Signed by EMMY RIVERA MD on 07/28/2023 03:[address] [facility] 07-28-2023 Infectious disease Progress note Date of Service 07/28/2023 Chief Complaint scrotal abscess right groin abscess Subjective Patient with Tmax of 36.9. Still reporting swelling of the scrotal area otherwise no new complaints Objective Vitals and Measurements T: 36.6 C (Oral) TMIN: 36.6 C (Oral) TMAX: 36.9 C (Oral) HR: 82(Apical) RR: 18 BP: 138/67 SpO2: 96% Intake and Output 7AM Yesterday to 7AM Today Intake and Output (Last 24 hours) Intake Oral Intake 1220.00 Output Stool Count 0.00 Urine Count 7.00 Total Summary Total Intake 1220.00 Total Output 0.00 Fluid Balance 1220.00 Physical Exam Morbidly obese male who was noted to be laying in the bed. Alert awake oriented to self and surroundings able to speak in full sentences. Patient has a pacemaker in place with pacemaker pocket scar evident on the left side of the chest. Overall patient in no respiratory distress. Weight Current Weight Dosing Weight: 203.209 kg (07/26/23) Current Weight: 200.7 kg (07/27/23) Dosing Weight: 194.5 kg (07/23/23) Medications Medications (32) Active Scheduled: (19) ascorbic acid 500 mg tablet 500 mg 1 tab(s), Oral, qDay aspirin 81 mg Chewable 81 mg 1 tab(s), Oral, Daily atorvastatin 40 mg tablet 40 mg 1 tab(s), Oral, qDay cholecalciferol 1250 mcg capsule (Vit D3 50,000 unit(s)) 1,250 mcg 1 cap(s), Oral, Thursday & Thursday dabigatran 150 mg capsule 150 mg 1 cap(s), Oral, BID fluticasone nasal 0.05 mg/inh Frost 100 mcg 2 spray(s), Nostril, each, qAM furosemide 40 mg tablet 40 mg 1 tab(s), Oral, BID gabapentin 100 mg Capsule 200 mg 2 cap(s), Oral, qAM gabapentin 100 mg Capsule 200 mg 2 cap(s), Oral, qPM levothyroxine 150 mcg tablet 150 mcg 1 tab(s), Oral, qDay levothyroxine 88 mcg tablet 88 mcg 1 tab(s), Oral, qDay meropenem 1,000 mg, IV Piggyback, q8h metoprolol succinate 25 mg ER tablet 12.5 mg 0.5 tab(s), Oral, BID Nicoderm patch REMOVAL 1 EA, Miscellaneous, q24h nicotine 14 mg/24 hr ER patch 14 mg 1 patch(es), Transdermal, q24h pantoprazole 20 mg EC tablet 20 mg 1 tab(s), Oral, BIDAC potassium chloride 20 mEq ER tablet 10 mEq 0.5 tab(s), Oral, BID prednisoLONE base 15 mg/5 mL syrup (60 mL) 10 mg 3.33 mL, Oral, BID silver sulfADIAZINE topical 1% Cream 50 Gram(s) 1 leandro, Topical, BID Continuous: (0) PRN: (13) acetaminophen 325 mg Tablet 650 mg 2 tab(s), Oral, q4h acetaminophen 325 mg Tablet 650 mg 2 tab(s), Oral, q4h acetaminophen-OXYcodone 325 mg-5 mg Tablet 1 tab(s), Oral, q4h albuterol - ipratropium 2.5 mg-0.5 mg/3 mL Inhal Milka UD 3 mL, Inhalation, q4hRT clonidine 0.1 mg tablet 0.1 mg 1 tab(s), Oral, q4h dextrose 50% Solution Disp syringe 50 mL 12.5 gram(s) 25 mL, IV Push, AsDirected guaifenesin 100 mg/5 mL Liquid SUGAR-FREE 120 mL 200 mg 10 mL, Oral, q4h hydralazine 10 mg Tablet 10 mg 1 tab(s), Oral, q3h melatonin 3 mg tablet 3 mg 1 tab(s), Oral, qHS morphine 4 mg/mL 1mL INJ 4 mg 1 mL, IV Push, q4h ondansetron 2 mg/ 1 mL 2 mL INJ 4 mg 2 mL, IV Push, q4h polyethylene glycol 3350 - UD packet 17 gram(s) 15 mL, Oral, qDay sodium chloride nasal 0.65% Frost 1 spray(s), Nostril, each, AsDirected Lab Results 07/27 06:08 WBC: 12.9 H Hgb: 10.3 L Hct: 34.8 L Platelet: 279 Neutrophil %: 73.0 Imaging Results and Diagnostics .rad CT Abdomen/Pelvis w/Contrast Result Date: July 25, 2023 Verified By: LUCIUS JIMÉNEZ MD CLINICAL STATEMENT: IMPRESSION: There is extensive scrotal swelling with a more localized complex fluidcollection concerning for an abscess within the right hemiscrotum withmeasurements as above. A single locule of air is favored to be within thegluteal crease rather than subcutaneous tissues. No acute process within the abdomen. I have reviewed this report and agree with the resident findings andinterpretation. IR Aspiration/Drainage Result Date: July 23, 2023 Verified By: LUCIUS GANN MD, Ph.D CLINICAL STATEMENT: IMPRESSION: Small amount of dark red fluid was obtained suggesting a liquefying hematoma. US Scrotum Contents Result Date: July 22, 2023 Verified By: LES DWYER MD CLINICAL STATEMENT: IMPRESSION: No evidence of acute testicular torsion. Small bilateral hydroceles. Incidentally noted right testicular appendix and left testicular cyst. I have personally reviewed the images of this examination and agree with theresident's findings and interpretation. US Groin Right Result Date: July 22, 2023 Verified By: LES DWYER MD CLINICAL STATEMENT: IMPRESSION: Subcutaneous fluid collection with tract extending to the surface of the skinwhere there is skin thickening is most compatible with an abscess. Directvisualization is recommended for confirmation of this finding. Note adjacentvascularity is seen. Clinical follow-up is recommended as warranted. I have personally reviewed the images of this examination and agree with theresident's findings and interpretation. XR Chest 1 View Result Date: July 22, 2023 Verified By: BEBETO URBINA MD CLINICAL STATEMENT: IMPRESSION: 1. Bandlike parenchymal opacities in the central and lower lungs could relateto atelectasis, scarring or other pathology. There is also a dense but notclearly calcified right lung nodule. For all of these findings, CTcharacterization advised EKG No qualifying data available. Assessment/Plan Chest pain Scrotal swelling Patient is a 52-year-old morbidly obese male who is being followed by infectious disease service for scrotal and right groin abscess. Patient previously had IR guided aspiration of the right groin abscess the cultures from which have not grown any bacteria. Patient subsequently had a CT abdomen and pelvis obtained on 07/25/2023 which shows a localized fluid collection in the right hemiscrotum measuring 0.9 x 3.4 x 3.3 cm. Patient reports that he had a spontaneous rupture of the scrotal abscess, with purulent drainage, cultures from which are now notable for gram-positive cocci and gram-positive rods on Gram stain. Cultures are notable for Klebsiella pneumoniae, sensitivities pending. Please continue IV antibiotics, hopefully MONIKA on Kleb pneumo will be available tomorrow. This is discussed with microbiology lab. Final antibiotics pending MONIKA results. Dr. Cuellar to start rounding in a.m. Digitally Signed by GOLDIE VARGAS MD on 07/28/2023 11:[address] [facility] 07-28-2023 Note . MICRO - Microbiology PROCEDURE: Blood Culture (fungal and bacterial) [*1] SOURCE: Blood BODY SITE: COLLECTED DATE/TIME: 06/28/2023 06:50 EST RECEIVED DATE/TIME: 06/28/2023 07:39 EST START DATE/TIME: 06/28/2023 07:39 EST FREE TEXT SOURCE: FINAL REPORTS Final Report [] Verified Date/Time/Personnel: 07/28/2023 08:05 EST Blood Culture with fungus: No growth at 4 weeks. PRELIMINARY REPORTS Preliminary Report [] Verified Date/Time/Personnel: 06/28/2023 08:59 EST Culture has been received in lab and is no growth to date. Culture will be held for four weeks. Performing Locations *1: This test was performed at: [facility], [address] [place] [address], [facility] , [facility] ([place] 07-28-2023 Urology Progress note Date of Service 07/28/2023 History of Present Illness Patient feeling better. No fevers chills. Notes decreased drainage and less pain over the right groin and scrotal region. Physical Exam Vitals and Measurements T: 36.6 C (Oral) TMIN: 36.6 C (Oral) TMAX: 36.9 C (Oral) HR: 67 RR: 18 BP: 138/67 SpO2: 96% WT: 200.7 kg Weight Current Weight Dosing Weight: 203.209 kg (07/26/23) Current Weight: 200.7 kg (07/27/23) Dosing Weight: 194.5 kg (07/23/23) Decreased purulent drainage mostly serous drainage now from open right inferior scrotal wound. No evidence of reaccumulation. No overlying cellulitic skin changes. Lab Results 07/27 06:08 WBC: 12.9 H Hgb: 10.3 L Hct: 34.8 L Platelet: 279 Neutrophil %: 73.0 Assessment/Plan Patient with spontaneous drainage of 6 cm fluctuant subcutaneous right inferior lateral scrotal abscess but now feeling better. Continues on broad-spectrum antibiotics. Cultures have been taken. The discharge appears to be tapering and the opening appears to be adequate to allow continued drainage if needed. On 07/27/2023, I used hemostat to probe the wound as above and there does not appear to be any undrained pockets or cavities. I do not think surgical intervention is going to be required and certainly would try to avoid any type of anesthesia given patient's extremely high risk for complications. Okay to continue Pradaxa. White count trending downwards and patient is clinically improved. Follow-up on cultures and continue antibiotics per ID. Okay for discharge anytime urologically. Continue local wound care mainly with soap water and ABD pads at home Problem List/Past Medical History Ongoing Scrotal swelling Historical No qualifying data Procedure/Surgical History Implantation of cardiac pacemaker: 06/29/23 Medications Inpatient aspirin 81 mg oral tablet, chewable, 81 mg= 1 tab(s), Oral, Daily cloNIDine, 0.1 mg= 1 tab(s), Oral, q4h, PRN dabigatran, 150 mg= 1 cap(s), Oral, BID Dextrose 50% IV Push, 12.5 gram(s)= 25 mL, IV Push, AsDirected, PRN DuoNeb, 3 mL, Inhalation, q4hRT, PRN fluticasone 50 mcg/inh NASAL spray, 100 mcg= 2 spray(s), Nostril, each, qAM gabapentin, 200 mg= 2 cap(s), Oral, qAM gabapentin, 200 mg= 2 cap(s), Oral, qPM guaiFENesin, 200 mg= 10 mL, Oral, q4h, PRN hydrALAZINE, 10 mg= 1 tab(s), Oral, q3h, PRN Lasix, 40 mg= 1 tab(s), Oral, BID levothyroxine, 88 mcg= 1 tab(s), Oral, qDay levothyroxine, 150 mcg= 1 tab(s), Oral, qDay Lipitor, 40 mg= 1 tab(s), Oral, qDay melatonin, 3 mg= 1 tab(s), Oral, qHS, PRN meropenem metoprolol succinate 25 mg oral TABLET extended release, 12.5 mg= 0.5 tab(s), Oral, BID Miralax Powder Packet, 17 gram(s)= 15 mL, Oral, qDay, PRN morphine, 4 mg= 1 mL, IV Push, q4h, PRN Nicoderm C-Q 14 mg/24 hr transdermal film, extended release, 14 mg= 1 patch(es), Transdermal, q24h nicotine (Nicoderm Patch REMOVAL), 1 EA, Miscellaneous, q24h pantoprazole, 20 mg= 1 tab(s), Oral, BIDAC Percocet 325/5, 1 tab(s), Oral, q4h, PRN potassium chloride extended release, 10 mEq= 0.5 tab(s), Oral, BID prednisoLONE (as base) 15 mg/5 mL oral SYRUP, 10 mg= 3.33 mL, Oral, BID Silvadene, 1 leandro, Topical, BID sodium chloride 0.65% nasal spray, 1 spray(s), Nostril, each, AsDirected, PRN Tylenol, 650 mg= 2 tab(s), Oral, q4h, PRN Tylenol, 650 mg= 2 tab(s), Oral, q4h, PRN Vitamin C, 500 mg= 1 tab(s), Oral, qDay Vitamin D3 1250 mcg (50,000 intl units) oral capsule, 1250 mcg= 1 cap(s), Oral, Thursday & Thursday Zofran, 4 mg= 2 mL, IV Push, q4h, PRN Home albuterol-ipratropium 2.5 mg-0.5 mg/3 mL inhalation solution, 3 mL, Inhalation, q4h aspirin 81 mg oral tablet, chewable, 81 mg= 1 tab(s), Oral, Daily bumetanide 1 mg oral tablet, 1 mg= 1 tab(s), Oral, Daily, 7 refills, Still taking, not as prescribed: takes as needed cyclobenzaprine 10 mg oral tablet, 10 mg= 1 tab(s), Oral, TID, PRN D3-50 (50,000 units) oral capsule, 1250 mcg= 1 cap(s), Oral, 2X/week diazePAM 10 mg oral tablet, 10 mg= 1 tab(s), Oral, QID, PRN diclofenac 1% topical gel, 4 gram(s), Topical, QID EPINEPHrine 0.3 mg injectable kit, 0.3 mg= 1 EA, Intramuscular, AsDirected, PRN fluticasone proprionate NASAL 50 mcg/ spray, 100 mcg= 2 spray(s), Nostril, each, qAM gabapentin 100 mg oral capsule, 200 mg= 2 cap(s), Oral, qAM gabapentin 100 mg oral capsule, 200 mg= 2 cap(s), Oral, qPM glipizide 2.5 mg oral tablet, 2.5 mg= 1 tab(s), Oral, BID Lasix 40 mg oral tablet, 40 mg= 1 tab(s), Oral, qDay levothyroxine 150 mcg (0.15 mg)/5 mL oral solution, 150 mcg= 5 mL, Oral, qDay levothyroxine 88 mcg (0.088 mg) oral tablet, 88 mcg= 1 tab(s), Oral, qDay Lipitor 40 mg oral tablet, 40 mg= 1 tab(s), Oral, qDay losartan 25 mg oral tablet, 25 mg= 1 tab(s), Oral, BID metoprolol succinate 25 mg oral TABLET extended release, 12.5 mg= 0.5 tab(s), Oral, BID nystatin 100,000 units/g topical powder, 1 leandro, Topical, BID pantoprazole 20 mg oral enteric coated tablet, 20 mg= 1 tab(s), Oral, BIDAC polyethylene glycol 3350 oral powder for reconstitution, 17 gram(s), Oral, TID Potassium Chloride (Eqv-K-Tab) 10 mEq oral tablet, extended release, 10 mEq= 1 tab(s), Oral, BID Pradaxa 150 mg oral capsule, 150 mg= 1 cap(s), Oral, BID prednisoLONE (as sodium phosphate) 10 mg oral tablet, disintegrating, 10 mg= 1 tab(s), Oral, BID saline nasal 0.65% solution, 2 spray(s), Nostril, each, AsDirected, PRN Silvadene 1% topical cream, 1 leandro, Topical, BID triamcinolone 0.025% topical cream, 1 leandro, Topical, TID Vitamin C 500 mg oral tablet, 500 mg= 1 tab(s), Oral, qDay Allergies Benicar (hives) DULoxetine (chest pain) Green dye (non-codified) (hives) Latex (hives) Levaquin (rash) Plavix (hives) Red food dyes (hives) Tape (rash) Wellbutrin (paranoia) Zithromax (itching) clonazePAM (hives) multivitamin with iron (rash) penicillin (hives) sulfa drug (rash) venlafaxine (mood swings) Social History Alcohol Do you ever drink more than intended: No. Has anyone been hurt or at risk by your drinking: No., 06/28/2023 Tobacco Nicotine Use: 10 or more cigarettes (1/2 pack or more)/day in last 30 days. Type: Cigarettes. Started at age: 15 Years., 06/28/2023 Immunizations No qualifying data available. Digitally Signed by SHLOMO LEGGETT MD on 07/28/2023 08:[address] [facility] 07-27-2023 Infectious disease Progress note Date of Service July 27, 2023 Chief Complaint Scrotal abscess Subjective Patient laying in the bed Tmax of 36.8 Objective Vitals and Measurements T: 36.8 C (Oral) TMIN: 36.6 C (Oral) TMAX: 36.8 C (Oral) HR: 80(Apical) RR: 20 BP: 127/80 SpO2: 94% WT: 200.7 kg Intake and Output 7AM Yesterday to 7AM Today Intake and Output (Last 24 hours) Intake Oral Intake 1080.00 Output Urine Voided 240.00 Stool Count 0.00 Urine Count 2.00 Total Summary Total Intake 1080.00 Total Output 240.00 Fluid Balance 840.00 Physical Exam patient is a morbidly obese male noted to be laying in the bed comfortably alert and awake able to speak in full sentences Scrotal area examined. Patient has significant swelling of the entire scrotum specially the right hemiscrotal area which has mild erythema as well as tenderness on palpation. On the inferior aspect of the right hemiscrotum there is a small about less than 1 cm opening noted. Weight Current Weight Dosing Weight: 203.209 kg (07/26/23) Current Weight: 200.7 kg (07/27/23) Dosing Weight: 194.5 kg (07/23/23) Medications Medications (22) Active Scheduled: (9) atorvastatin 40 mg tablet 40 mg 1 tab(s), Oral, qDay furosemide 40 mg tablet 40 mg 1 tab(s), Oral, BID levothyroxine 150 mcg tablet 150 mcg 1 tab(s), Oral, qDay meropenem 1,000 mg, IV Piggyback, q8h metoprolol succinate 25 mg ER tablet 12.5 mg 0.5 tab(s), Oral, BID Nicoderm patch REMOVAL 1 EA, Miscellaneous, q24h nicotine 14 mg/24 hr ER patch 14 mg 1 patch(es), Transdermal, q24h pantoprazole 20 mg EC tablet 20 mg 1 tab(s), Oral, qDayAC prednisoLONE base 15 mg/5 mL syrup (60 mL) 10 mg 3.33 mL, Oral, BID Continuous: (0) PRN: (13) acetaminophen 325 mg Tablet 650 mg 2 tab(s), Oral, q4h acetaminophen 325 mg Tablet 650 mg 2 tab(s), Oral, q4h acetaminophen-OXYcodone 325 mg-5 mg Tablet 1 tab(s), Oral, q4h albuterol - ipratropium 2.5 mg-0.5 mg/3 mL Inhal Milka UD 3 mL, Inhalation, q4hRT bumetanide 1 mg tablet 1 mg 1 tab(s), Oral, Daily clonidine 0.1 mg tablet 0.1 mg 1 tab(s), Oral, q4h dextrose 50% Solution Disp syringe 50 mL 12.5 gram(s) 25 mL, IV Push, AsDirected guaifenesin 100 mg/5 mL Liquid SUGAR-FREE 120 mL 200 mg 10 mL, Oral, q4h hydralazine 10 mg Tablet 10 mg 1 tab(s), Oral, q3h melatonin 3 mg tablet 3 mg 1 tab(s), Oral, qHS morphine 4 mg/mL 1mL INJ 4 mg 1 mL, IV Push, q4h ondansetron 2 mg/ 1 mL 2 mL INJ 4 mg 2 mL, IV Push, q4h polyethylene glycol 3350 - UD packet 17 gram(s) 15 mL, Oral, qDay Lab Results 07/27 06:08 WBC: 12.9 H Hgb: 10.3 L Hct: 34.8 L Platelet: 279 Neutrophil %: 73.0 Imaging Results and Diagnostics CT Abdomen/Pelvis w/Contrast Result Date: July 25, 2023 Verified By: LUCIUS JIMÉNEZ MD CLINICAL STATEMENT: IMPRESSION: There is extensive scrotal swelling with a more localized complex fluidcollection concerning for an abscess within the right hemiscrotum withmeasurements as above. A single locule of air is favored to be within thegluteal crease rather than subcutaneous tissues. No acute process within the abdomen. I have reviewed this report and agree with the resident findings andinterpretation. IR Aspiration/Drainage Result Date: July 23, 2023 Verified By: LUCIUS GANN MD, Ph.D CLINICAL STATEMENT: IMPRESSION: Small amount of dark red fluid was obtained suggesting a liquefying hematoma. US Scrotum Contents Result Date: July 22, 2023 Verified By: LES DWYER MD CLINICAL STATEMENT: IMPRESSION: No evidence of acute testicular torsion. Small bilateral hydroceles. Incidentally noted right testicular appendix and left testicular cyst. I have personally reviewed the images of this examination and agree with theresident's findings and interpretation. US Groin Right Result Date: July 22, 2023 Verified By: LES DWYER MD CLINICAL STATEMENT: IMPRESSION: Subcutaneous fluid collection with tract extending to the surface of the skinwhere there is skin thickening is most compatible with an abscess. Directvisualization is recommended for confirmation of this finding. Note adjacentvascularity is seen. Clinical follow-up is recommended as warranted. I have personally reviewed the images of this examination and agree with theresident's findings and interpretation. XR Chest 1 View Result Date: July 22, 2023 Verified By: BEBETO URBINA MD CLINICAL STATEMENT: IMPRESSION: 1. Bandlike parenchymal opacities in the central and lower lungs could relateto atelectasis, scarring or other pathology. There is also a dense but notclearly calcified right lung nodule. For all of these findings, CTcharacterization advised EKG No qualifying data available. Assessment/Plan Chest pain Scrotal swelling Patient is a 52-year-old morbidly obese male who is being followed by infectious disease service for scrotal and right groin abscess. Patient previously had IR guided aspiration of the right groin abscess the cultures from which have not grown any bacteria. Patient subsequently had a CT abdomen and pelvis obtained on 07/25/2023 which shows a localized fluid collection in the right hemiscrotum measuring 0.9 x 3.4 x 3.3 cm. Patient reports that he had a spontaneous rupture of the scrotal abscess, with purulent drainage, cultures from which are now notable for gram-positive cocci and gram-positive rods on Gram stain culture is pending. Clinically patient still has significant swelling of the scrotum involving the right scrotal area. Recommend continuation of IV antibiotic therapy. Discontinue meropenem additional 24 to 48 hours till cultures finalize ID to follow [1] Progress Note; GOLDIE VARGAS MD 07/26/2023 10:31 EST Digitally Signed by GOLDIE VARGAS MD on 07/27/2023 11:[address] [facility] 07-27-2023 Note Date of Service 07/27/2023 Chief Complaint Scrotal pain. Subjective Patient seen and examined. Discussed with staff. Patient is currently lying in bed not in any distress. Patient states that he has been doing much better. Pain in his scrotal area is much decreased he is using morphine at times. In addition to that denies any nausea vomiting abdominal pain. Does complain of shortness of breath no cough. Patient does complain of some weakness. Objective Vitals and Measurements T: 36.8 C (Oral) TMIN: 36.6 C (Oral) TMAX: 36.8 C (Oral) HR: 80(Apical) RR: 20 BP: 127/80 SpO2: 94% WT: 200.7 kg General Appearance: no acute distress, morbid obesity Head: atraumatic, perrrla, EENT:moist mucosa,, normal pharynx, normal tonsils and adenoids and tongue Neck:trachea midline, no carotid bruit, no mass or lymphadenopathy. Cardiac: RRR, no murmurs, normal S1 and S2 Lungs: Normal chest wall expansion, wheeze present Abdomen: Soft nontender nondistended, normal bowel sounds all quadrants, no hepatomegaly, guarding Genitourinary: No inguinal hernia, Musculoskeletal:Range of Motion intact in all extremities, strength intact, Extremities: No edema, scrotal edema, decreased Neurological:Awake alert oriented x3, cranial nerves II through XII intact, DTR intact, sensory function intact, Skin: Warm dry, pink, no rash, purpura, petechia Psychiatric: Normal affect, intact cognition, Intake and Output 7AM Yesterday to 7AM Today Intake and Output (Last 24 hours) Intake Oral Intake 1080.00 Output Urine Voided 240.00 Stool Count 0.00 Urine Count 2.00 Total Summary Total Intake 1080.00 Total Output 240.00 Fluid Balance 840.00 Physical Exam Weight Current Weight Dosing Weight: 203.209 kg (07/26/23) Current Weight: 200.7 kg (07/27/23) Dosing Weight: 194.5 kg (07/23/23) Medications Medications (22) Active Scheduled: (9) atorvastatin 40 mg tablet 40 mg 1 tab(s), Oral, qDay furosemide 40 mg tablet 40 mg 1 tab(s), Oral, BID levothyroxine 150 mcg tablet 150 mcg 1 tab(s), Oral, qDay meropenem 1,000 mg, IV Piggyback, q8h metoprolol succinate 25 mg ER tablet 12.5 mg 0.5 tab(s), Oral, BID Nicoderm patch REMOVAL 1 EA, Miscellaneous, q24h nicotine 14 mg/24 hr ER patch 14 mg 1 patch(es), Transdermal, q24h pantoprazole 20 mg EC tablet 20 mg 1 tab(s), Oral, qDayAC prednisoLONE base 15 mg/5 mL syrup (60 mL) 10 mg 3.33 mL, Oral, BID Continuous: (0) PRN: (13) acetaminophen 325 mg Tablet 650 mg 2 tab(s), Oral, q4h acetaminophen 325 mg Tablet 650 mg 2 tab(s), Oral, q4h acetaminophen-OXYcodone 325 mg-5 mg Tablet 1 tab(s), Oral, q4h albuterol - ipratropium 2.5 mg-0.5 mg/3 mL Inhal Milka UD 3 mL, Inhalation, q4hRT bumetanide 1 mg tablet 1 mg 1 tab(s), Oral, Daily clonidine 0.1 mg tablet 0.1 mg 1 tab(s), Oral, q4h dextrose 50% Solution Disp syringe 50 mL 12.5 gram(s) 25 mL, IV Push, AsDirected guaifenesin 100 mg/5 mL Liquid SUGAR-FREE 120 mL 200 mg 10 mL, Oral, q4h hydralazine 10 mg Tablet 10 mg 1 tab(s), Oral, q3h melatonin 3 mg tablet 3 mg 1 tab(s), Oral, qHS morphine 4 mg/mL 1mL INJ 4 mg 1 mL, IV Push, q4h ondansetron 2 mg/ 1 mL 2 mL INJ 4 mg 2 mL, IV Push, q4h polyethylene glycol 3350 - UD packet 17 gram(s) 15 mL, Oral, qDay Lab Results 07/27 06:08 WBC: 12.9 H Hgb: 10.3 L Hct: 34.8 L Platelet: 279 Neutrophil %: 73.0 EKG No qualifying data available. Assessment/Plan Chest pain Scrotal swelling Orders: Bedside Commode (CS supply) Bedside Commode (CS supply) assessment and plan 1: Acute scrotal abscess noted on CT scan A/P done 07/25/2023, status post CT-guided drainage of thigh hematoma done by IR on 07/23/2023 remains no growth. Currently on vancomycin and meropenem, seen by urology on reconsult and abscess was probed with hemostat and no further surgery planned. Scrotum is less swollen, today. Pain control adequate with IV morphine for breakthrough. . . infectious disease also on case. Continue with scrotal sling. Purulent drainage sent for culture and is showing gram positive rods and GPC, on gram stain. Cultures pending. 2: Morbid obesity, with BERT will continue with CPAP as needed for obstructive sleep apnea. 3: Coronary artery disease with stents on aspirin, taken off brilinta and remains on statin. 4: Complete heart block status post pacemaker no acute issues identified. 5: Rheumatoid arthritis: baseline, not taking any prenisone at home 6: History of COPD continue with oxygen as needed. Patient has chronic hypoxic respiratory failure and uses 4 L of oxygen at home. 7: Tobacco abuse: counseled at length. 8: dvt : has been on pradaxa, but being held due to possible surgical intervention and will restart in am of 07/27/2023 and will increase the dose to 150 mg bid since renal function is normal. Patient is high risk due to his complicated medical history, comorbid conditions including severe morbid obesity, obstructive sleep apnea, chronic respiratory failure. infectious disease with regards to adjustment of antibiotics. Patient noted to have hematoma on CT-guided drainage in thigh, but right sided scrotal abscess started to drain, cultures sent, appreciate urology input. Will restart pradaxa, cbc, bm,p in am. dc planning. Time Spent 35 min Digitally Signed by EMMY RIVERA MD on 07/27/2023 11:[address] [facility] 07-27-2023 Urology Progress note Date of Service 07/27/2023 History of Present Illness Patient feeling better this morning. No fevers or chills. White count trending downwards. Physical Exam Vitals and Measurements T: 36.8 C (Oral) TMIN: 36.6 C (Oral) TMAX: 36.8 C (Oral) HR: 80(Apical) RR: 20 BP: 127/80 SpO2: 94% WT: 200.7 kg Weight Current Weight Dosing Weight: 203.209 kg (07/26/23) Current Weight: 200.7 kg (07/27/23) Dosing Weight: 194.5 kg (07/23/23) On exam there is still some mild purulent blood-tinged drainage from the open right inferior scrotal wound. I used a hemostat to gently probe the opening and there appears to be no loculations. Cavity about 1.5 cm deep. No overlying cellulitic changes. Decreased induration and much less tender on examination. Lab Results 07/27 06:08 WBC: 12.9 H Hgb: 10.3 L Hct: 34.8 L Platelet: 279 Neutrophil %: 73.0 Assessment/Plan Patient with spontaneous drainage of 6 cm fluctuant subcutaneous right inferior lateral scrotal abscess but now feeling better. Continues on broad-spectrum antibiotics. Cultures have been taken. The discharge appears to be tapering and the opening appears to be adequate to allow continued drainage if needed. I used hemostat to probe the wound as above and there does not appear to be any undrained pockets or cavities. I do not think surgical intervention is going to be required and certainly would try to avoid any type of anesthesia given patient's extremely high risk for complications. Okay to start Pradaxa probably tomorrow if indicated. White count trending downwards and patient is clinically improved. Follow-up on cultures and continue antibiotics per ID. Okay for discharge anytime urologically. Continue local wound care mainly with soap water and ABD pads at home Problem List/Past Medical History Ongoing Scrotal swelling Historical No qualifying data Procedure/Surgical History Implantation of cardiac pacemaker: 06/29/23 Medications Inpatient bumetanide, 1 mg= 1 tab(s), Oral, Daily, PRN cloNIDine, 0.1 mg= 1 tab(s), Oral, q4h, PRN Dextrose 50% IV Push, 12.5 gram(s)= 25 mL, IV Push, AsDirected, PRN DuoNeb, 3 mL, Inhalation, q4hRT, PRN guaiFENesin, 200 mg= 10 mL, Oral, q4h, PRN hydrALAZINE, 10 mg= 1 tab(s), Oral, q3h, PRN Lasix, 40 mg= 1 tab(s), Oral, BID levothyroxine, 150 mcg= 1 tab(s), Oral, qDay Lipitor, 40 mg= 1 tab(s), Oral, qDay melatonin, 3 mg= 1 tab(s), Oral, qHS, PRN meropenem metoprolol succinate 25 mg oral TABLET extended release, 12.5 mg= 0.5 tab(s), Oral, BID Miralax Powder Packet, 17 gram(s)= 15 mL, Oral, qDay, PRN morphine, 4 mg= 1 mL, IV Push, q4h, PRN Nicoderm C-Q 14 mg/24 hr transdermal film, extended release, 14 mg= 1 patch(es), Transdermal, q24h nicotine (Nicoderm Patch REMOVAL), 1 EA, Miscellaneous, q24h Percocet 325/5, 1 tab(s), Oral, q4h, PRN prednisoLONE (as base) 15 mg/5 mL oral SYRUP, 10 mg= 3.33 mL, Oral, BID Protonix, 20 mg= 1 tab(s), Oral, qDayAC Tylenol, 650 mg= 2 tab(s), Oral, q4h, PRN Tylenol, 650 mg= 2 tab(s), Oral, q4h, PRN Zofran, 4 mg= 2 mL, IV Push, q4h, PRN Home albuterol-ipratropium 2.5 mg-0.5 mg/3 mL inhalation solution, 3 mL, Inhalation, q4h aspirin 81 mg oral tablet, chewable, 81 mg= 1 tab(s), Oral, Daily bumetanide 1 mg oral tablet, 1 mg= 1 tab(s), Oral, Daily, 7 refills, Still taking, not as prescribed: takes as needed cyclobenzaprine 10 mg oral tablet, 10 mg= 1 tab(s), Oral, TID, PRN D3-50 (50,000 units) oral capsule, 1250 mcg= 1 cap(s), Oral, 2X/week diazePAM 10 mg oral tablet, 10 mg= 1 tab(s), Oral, QID, PRN EPINEPHrine 0.3 mg injectable kit, 0.3 mg= 1 EA, Intramuscular, AsDirected, PRN fluticasone proprionate NASAL 50 mcg/ spray, 100 mcg= 2 spray(s), Nostril, each, qAM gabapentin 100 mg oral capsule, 200 mg= 2 cap(s), Oral, qAM gabapentin 100 mg oral capsule, 200 mg= 2 cap(s), Oral, qPM glipizide 2.5 mg oral tablet, 2.5 mg= 1 tab(s), Oral, BID Lasix 40 mg oral tablet, 40 mg= 1 tab(s), Oral, qDay levothyroxine 150 mcg (0.15 mg)/5 mL oral solution, 150 mcg= 5 mL, Oral, qDay levothyroxine 88 mcg (0.088 mg) oral tablet, 88 mcg= 1 tab(s), Oral, qDay Lipitor 40 mg oral tablet, 40 mg= 1 tab(s), Oral, qDay losartan 25 mg oral tablet, 25 mg= 1 tab(s), Oral, BID metoprolol succinate 25 mg oral TABLET extended release, 12.5 mg= 0.5 tab(s), Oral, BID omeprazole 20 mg oral delayed release tablet, 20 mg= 1 tab(s), Oral, BID pantoprazole 20 mg oral enteric coated tablet, 20 mg= 1 tab(s), Oral, BIDAC polyethylene glycol 3350 oral powder for reconstitution, 17 gram(s), Oral, TID Potassium Chloride (Eqv-K-Tab) 10 mEq oral tablet, extended release, 10 mEq= 1 tab(s), Oral, BID Pradaxa 150 mg oral capsule, 150 mg= 1 cap(s), Oral, BID prednisoLONE (as sodium phosphate) 10 mg oral tablet, disintegrating, 10 mg= 1 tab(s), Oral, BID saline nasal 0.65% solution, 2 spray(s), Nostril, each, AsDirected, PRN Vitamin C 500 mg oral tablet, 500 mg= 1 tab(s), Oral, qDay Allergies Benicar (hives) DULoxetine (chest pain) Green dye (non-codified) (hives) Latex (hives) Levaquin (rash) Plavix (hives) Red food dyes (hives) Tape (rash) Wellbutrin (paranoia) Zithromax (itching) clonazePAM (hives) multivitamin with iron (rash) penicillin (hives) sulfa drug (rash) venlafaxine (mood swings) Social History Alcohol Do you ever drink more than intended: No. Has anyone been hurt or at risk by your drinking: No., 06/28/2023 Tobacco Nicotine Use: 10 or more cigarettes (1/2 pack or more)/day in last 30 days. Type: Cigarettes. Started at age: 15 Years., 06/28/2023 Immunizations No qualifying data available. Digitally Signed by SHLOMO LEGGETT MD on 07/27/2023 10:[address] [facility] 07-26-2023 Note Date of Service 07/26/2023 Chief Complaint scrotal pain Subjective Patient seen and examined. Discussed with staff. Patient is lying in bed states he feels a lot better today his scrotal abscess started draining overnight and patient states that he is desperate has less pressure. Patient said that the pain is controlled as long as he is getting morphine. Patient denies any nausea vomiting abdominal pain chest pain palpitations fever chills. Objective Vitals and Measurements T: 36.8 C (Oral) TMIN: 36.7 C (Oral) TMAX: 36.8 C (Oral) HR: 88(Apical) RR: 18 BP: 143/83 SpO2: 95% WT: 203.209 kg General Appearance: no acute distress, morbid obesity Head: atraumatic, perrrla, EENT:moist mucosa,, normal pharynx, normal tonsils and adenoids and tongue Neck:trachea midline, no carotid bruit, no mass or lymphadenopathy. Cardiac: RRR, no murmurs, normal S1 and S2 Lungs: Normal chest wall expansion, clear to auscultation Abdomen: Soft nontender nondistended, normal bowel sounds all quadrants, no hepatomegaly, guarding Genitourinary: No inguinal hernia, scrotal edema tender to touch, purulent drainage from rigt lower aspect Musculoskeletal:Range of Motion intact in all extremities, strength intact, Extremities: No edema, Neurological:Awake alert oriented x3, cranial nerves II through XII intact, DTR intact, sensory function intact, Skin: Warm dry, pink, no rash, purpura, petechia Psychiatric: Normal affect, intact cognition, Intake and Output 7AM Yesterday to 7AM Today Intake and Output (Last 24 hours) Intake Oral Intake 60.00 Output Stool Count 0.00 Total Summary Total Intake 60.00 Total Output 0.00 Fluid Balance 60.00 Physical Exam Weight Dosing Weight: 203.209 kg (07/26/23) Dosing Weight: 194.5 kg (07/23/23) Medications Medications (22) Active Scheduled: (9) atorvastatin 40 mg tablet 40 mg 1 tab(s), Oral, qDay furosemide 40 mg tablet 40 mg 1 tab(s), Oral, BID levothyroxine 150 mcg tablet 150 mcg 1 tab(s), Oral, qDay meropenem 1,000 mg, IV Piggyback, q8h metoprolol succinate 25 mg ER tablet 12.5 mg 0.5 tab(s), Oral, BID Nicoderm patch REMOVAL 1 EA, Miscellaneous, q24h nicotine 14 mg/24 hr ER patch 14 mg 1 patch(es), Transdermal, q24h pantoprazole 20 mg EC tablet 20 mg 1 tab(s), Oral, qDayAC prednisoLONE base 15 mg/5 mL syrup (60 mL) 10 mg 3.33 mL, Oral, BID Continuous: (0) PRN: (13) acetaminophen 325 mg Tablet 650 mg 2 tab(s), Oral, q4h acetaminophen 325 mg Tablet 650 mg 2 tab(s), Oral, q4h acetaminophen-OXYcodone 325 mg-5 mg Tablet 1 tab(s), Oral, q4h albuterol - ipratropium 2.5 mg-0.5 mg/3 mL Inhal Milka UD 3 mL, Inhalation, q4hRT bumetanide 1 mg tablet 1 mg 1 tab(s), Oral, Daily clonidine 0.1 mg tablet 0.1 mg 1 tab(s), Oral, q4h dextrose 50% Solution Disp syringe 50 mL 12.5 gram(s) 25 mL, IV Push, AsDirected guaifenesin 100 mg/5 mL Liquid SUGAR-FREE 120 mL 200 mg 10 mL, Oral, q4h hydralazine 10 mg Tablet 10 mg 1 tab(s), Oral, q3h melatonin 3 mg tablet 3 mg 1 tab(s), Oral, qHS morphine 4 mg/mL 1mL INJ 4 mg 1 mL, IV Push, q4h ondansetron 2 mg/ 1 mL 2 mL INJ 4 mg 2 mL, IV Push, q4h polyethylene glycol 3350 - UD packet 17 gram(s) 15 mL, Oral, qDay Lab Results 07/25 04:56 WBC: 16.7 H Hgb: 9.4 L Hct: 31.8 L Platelet: 227 Neutrophil %: 85.7 H Glucose Level: 172 H Sodium Level: 138 Potassium Level: 3.9 BUN: 15.0 Creatinine Lvl (s): 0.87 EKG No qualifying data available. Assessment/Plan Chest pain Scrotal swelling Orders: nicotine, Start: 07/25/23 15:00:00 EST, Dose = 1 patch(es), ER Film, Transdermal, q24h, 14 day(s), Stop: 08/07/23 15:00:00 EST, 07/25/23 14:12:00 EST nicotine (Nicoderm Patch REMOVAL), Start: 07/26/23 15:00:00 EST, q24h, 07/26/23 14:12:00 EST Complete Blood Count Consult to Physician Lacey W/Strap X-Large ([id number]) assessment and plan: 1: Acute scrotal abscess noted on CT scan A/P done 07/25/2023, status post CT-guided drainage of thigh hematoma done by IR on 07/23/2023 remains no growth. Currently on vancomycin and meropenem, seen by urology on reconsult and will need Further I and D , with widening of abscess and packing. Scrotum is less swollen, today. no torsion noted on scrotum ultrasound. General surgery on case. Pain control adequate with IV morphine for breakthrough. . . infectious disease also on case. Continue with scrotal sling. Purulent drainage sent for culture. 2: Morbid obesity, with BERT will continue with CPAP as needed for obstructive sleep apnea. 3: Coronary artery disease with stents on aspirin. 4: Complete heart block status post pacemaker no acute issues identified. 5: Rheumatoid arthritis: baseline 6: History of COPD continue with oxygen as needed. Patient has chronic hypoxic respiratory failure and uses 4 L of oxygen at home. 7: Tobacco abuse: counseled at length. 8: dvt : has been on pradaxa, but being held due to possible surgical intervention and will restart in am of 07/27/2023. Patient is high risk due to his complicated medical history, comorbid conditions including severe morbid obesity, obstructive sleep apnea, chronic respiratory failure. infectious disease with regards to adjustment of antibiotics. Patient noted to have hematoma on CT-guided drainage in thigh, but right sided scrotal abscess started to drain, cultures sent, appreciate urology input. Time Spent 35 min Digitally Signed by EMMY RIVERA MD on 07/26/2023 10:[address] [facility] 07-26-2023 Urology Progress note Date of Service 07/26/2023 History of Present Illness Fortunately, about 10 PM last night patient's right inferior scrotal wound opened up spontaneously and a large amount of purulent material drained. He felt better immediately. No fevers or chills. Cultures were taken Physical Exam Vitals and Measurements T: 36.8 C (Oral) TMIN: 36.7 C (Oral) TMAX: 36.8 C (Oral) HR: 88(Apical) RR: 18 BP: 143/83 SpO2: 95% WT: 203.209 kg Weight Dosing Weight: 203.209 kg (07/26/23) Dosing Weight: 194.5 kg (07/23/23) The previously fluctuant inferior lateral subcutaneous mass is no longer palpable with about a 1 cm spontaneous opening with purulent material draining but appears to be completely decompressed at this point with no cellulitic skin changes and nontender. Lab Results 07/25 04:56 WBC: 16.7 H Hgb: 9.4 L Hct: 31.8 L Platelet: 227 Neutrophil %: 85.7 H Glucose Level: 172 H Sodium Level: 138 Potassium Level: 3.9 BUN: 15.0 Creatinine Lvl (s): 0.87 Assessment/Plan Chest pain Scrotal swelling Patient with spontaneous drainage of 6 cm fluctuant subcutaneous right inferior lateral scrotal abscess but now feeling better. Continues on broad-spectrum antibiotics. Cultures have been taken. The discharge appears to be tapering and the opening appears to be adequate to allow continued drainage if needed. Will reexamine over the next 24 hours. Will assess whether or not we need to extend the opening under local anesthetic, at the bedside to prevent reclosure and reformation of the abscess cavity. This might allow packing of the wound. Would keep off Pradaxa another 24 hours until we reassess tomorrow morning. Increase activity. Problem List/Past Medical History Ongoing Scrotal swelling Historical No qualifying data Procedure/Surgical History Implantation of cardiac pacemaker: 06/29/23 Medications Inpatient bumetanide, 1 mg= 1 tab(s), Oral, Daily, PRN cloNIDine, 0.1 mg= 1 tab(s), Oral, q4h, PRN Dextrose 50% IV Push, 12.5 gram(s)= 25 mL, IV Push, AsDirected, PRN DuoNeb, 3 mL, Inhalation, q4hRT, PRN guaiFENesin, 200 mg= 10 mL, Oral, q4h, PRN hydrALAZINE, 10 mg= 1 tab(s), Oral, q3h, PRN Lasix, 40 mg= 1 tab(s), Oral, BID levothyroxine, 150 mcg= 1 tab(s), Oral, qDay Lipitor, 40 mg= 1 tab(s), Oral, qDay melatonin, 3 mg= 1 tab(s), Oral, qHS, PRN meropenem metoprolol succinate 25 mg oral TABLET extended release, 12.5 mg= 0.5 tab(s), Oral, BID Miralax Powder Packet, 17 gram(s)= 15 mL, Oral, qDay, PRN morphine, 4 mg= 1 mL, IV Push, q4h, PRN Nicoderm C-Q 14 mg/24 hr transdermal film, extended release, 14 mg= 1 patch(es), Transdermal, q24h nicotine (Nicoderm Patch REMOVAL), 1 EA, Miscellaneous, q24h Percocet 325/5, 1 tab(s), Oral, q4h, PRN prednisoLONE (as base) 15 mg/5 mL oral SYRUP, 10 mg= 3.33 mL, Oral, BID Protonix, 20 mg= 1 tab(s), Oral, qDayAC Tylenol, 650 mg= 2 tab(s), Oral, q4h, PRN Tylenol, 650 mg= 2 tab(s), Oral, q4h, PRN Zofran, 4 mg= 2 mL, IV Push, q4h, PRN Home aspirin 81 mg oral tablet, chewable, 81 mg= 1 tab(s), Oral, Daily bumetanide 1 mg oral tablet, 1 mg= 1 tab(s), Oral, Daily, 7 refills, Still taking, not as prescribed: takes as needed Lasix 40 mg oral tablet, 40 mg= 1 tab(s), Oral, qDay levothyroxine 150 mcg (0.15 mg)/5 mL oral solution, 150 mcg= 5 mL, Oral, qDay levothyroxine 88 mcg (0.088 mg) oral tablet, 88 mcg= 1 tab(s), Oral, qDay Lipitor 40 mg oral tablet, 40 mg= 1 tab(s), Oral, qDay metoprolol succinate 25 mg oral TABLET extended release, 12.5 mg= 0.5 tab(s), Oral, BID pantoprazole 20 mg oral enteric coated tablet, 20 mg= 1 tab(s), Oral, BIDAC Pradaxa 75 mg oral capsule, 75 mg= 1 cap(s), Oral, BID prednisoLONE (as sodium phosphate) 10 mg oral tablet, disintegrating, 10 mg= 1 tab(s), Oral, BID Protonix 20 mg oral enteric coated tablet, 20 mg= 1 tab(s), Oral, qDayAC Allergies Green dye (non-codified) (hives) Latex (hives) Red food dyes (hives) Tape (rash) multivitamin with iron (rash) penicillin (hives) Social History Alcohol Do you ever drink more than intended: No. Has anyone been hurt or at risk by your drinking: No., 06/28/2023 Tobacco Nicotine Use: 10 or more cigarettes (1/2 pack or more)/day in last 30 days. Type: Cigarettes. Started at age: 15 Years., 06/28/2023 Immunizations No qualifying data available. Digitally Signed by SHLOMO LEGGETT MD on 07/26/2023 08:[address] [facility] 07-25-2023 Note ORIGINAL EXAMINATION: CT OF THE ABDOMEN AND PELVIS WITH CONTRAST 07/25/2023 4:28 pm TECHNIQUE: CT of the abdomen and pelvis was performed with the administration of intravenous contrast. Multiplanar reformatted images are provided for review. Automated exposure control, iterative reconstruction, and/or weight based adjustment of the mA/kV was utilized to reduce the radiation dose to as low as reasonably achievable. COMPARISON: Scrotal and pelvic ultrasound 07/22/2023. HISTORY: ORDERING SYSTEM PROVIDED HISTORY: Reason for Exam: abscess, increase pain, pt c/o swelling and pain in groin area, more so on right side, BEST IMAGES POSSIBLE, REPEATS TAKEN TO INCLUDE ENTIRE AREA OF INTEREST abscess, increase pain FINDINGS: Degraded study secondary to patient body habitus. No pericardial thickening or effusion. No acute process within the visualized lower lungs. Atelectasis and scarring is present. The aorta is nonaneurysmal with minimal atherosclerotic disease. No adenopathy within the abdomen or pelvis. The liver, gallbladder, spleen, pancreas, and bilateral renal glands are unremarkable. Splenic granulomas are noted. Symmetric nephrograms. No hydronephrosis or renal calculi. The bladder is decompressed limiting evaluation. The prostate is normal in size. No pneumoperitoneum or free fluid. The large and small bowel are normal in caliber. The appendix is unremarkable. Tiny sliding hiatal hernia. Bilateral fat containing inguinal hernias. No acute osseous abnormality. Degenerative changes of the spine. There is extensive scrotal swelling with a more localized fluid collection in the right hemiscrotum measuring approximately 6.9 x 3.4 x 3.3 cm (AP x TR x CC). There is a single locule of air favored to be within the gluteal crease rather than subcutaneous (series 2, image 161). IMPRESSION: There is extensive scrotal swelling with a more localized complex fluid collection concerning for an abscess within the right hemiscrotum with measurements as above. A single locule of air is favored to be within the gluteal crease rather than subcutaneous tissues. No acute process within the abdomen. I have reviewed this report and agree with the resident findings and interpretation. Interpreted by: Lucius Jiménez MD Preliminary Report By: Austin Rm Electronically signed By Lucius Jiménez MD Dictated Date: 07/25/2023 4:29:44 PM Prelim Date: 07/25/2023 4:39:25 PM Sign Date: 07/25/2023 4:45:50 PM Ordering Provider: [facility] 07-24-2023 Note IR Procedure Record Summary Primary Physician: LUCIUS GANN MD, Ph.D Finalized Date/Time: 07/24/23 15:40:14 Pt. Name: CAYLA GRANADOS /Sex: 1970 Male Med Rec #: [id number] Physician: LES RINCON MD Financial #: [id number] Pt. Type: I Room/Bed: [facility]/ Admit/Disch: 07/22/23 11:31:52 - Institution: Allergies identified in patient's electronic medical record at time of printing on 07/24/23 Entry 1 Entry 2 Entry 3 Substance Green dye (non-codified) Latex Red food dyes Reaction Type Allergy Allergy Allergy Last Modified By: STANISLAW Seaman Mona Fisk, RN Kelly A 07/23/23 08:21:53 A RN 06/28/23 03:39:13 07/23/23 08:22:34 Entry 4 Entry 5 Entry 6 Substance Tape multivitamin with iron penicillin Reaction Type Allergy Allergy Allergy Last Modified By: Yudelka Rico Mona Alhmeidi-Abueteen, Mona A RN 06/28/23 03:39:39 A RN 06/28/23 03:38:37 A RN 06/28/23 03:37:57 Case Attendance- IR Entry 1 Entry 2 Entry 3 Case Attendee LUCIUS GANN MD, Ph.D Terrell Trevizo, Clinical SociologistNat Waters Role Performed Primary Surgeon Scrub Technologist Circulating Technologist Details Time In 07/23/23 14:23:00 07/23/23 14:23:00 07/23/23 14:23:00 Time Out 07/23/23 15:01:00 07/23/23 15:01:00 07/23/23 15:01:00 Procedure/Preference IR Aspiration/Drainage IR Aspiration/Drainage IR Aspiration/Drainage Card SN SN SN Last Modified By: STANISLAW Pena RN Corey Snider, RN Corey 07/23/23 14:54:11 07/23/23 14:54:11 07/23/23 14:54:11 Entry 4 Case Attendee STANISLAW Pena Role Performed Director Of National Sales 1 Details Time In 07/23/23 14:23:00 Time Out 07/23/23 15:01:00 Procedure/Preference IR Aspiration/Drainage Card SN Last Modified By: STANISLAW Pena 07/23/23 14:54:11 Radiology Procedures- IR Entry 1 Procedure/Preference IR Aspiration/Drainage Actual Procedure IR Aspiration/Drainage Card SN Primary Procedure Yes Primary Surgeon LUCIUS GANN MD, Ph.D Anesthesia/Sedation Local Type Additional Procedure Times Start 07/23/23 14:39:00 Stop 07/23/23 14:54:00 Specialty Service SN Radiology Procedure EBL 1 mL Last Modified By: STANISLAW Pena 07/23/23 14:54:19 Radiology Procedure Details - IR Entry 1 Radiology Sedation Case Times Sedation Total Time 0min Radiology - Fluid/Drainage Radiology Contrast Contrast Used? No Radiology Flouroscopy Fluoroscopy Used? No Fluoro Time 0 Radiology Local Local Used? Yes Local Type: lidocaine 2% Local Dose 5ml Radiology Procedure Site Site/Location right groin Site Condition No complications Dressing Type Bandaids Technologist Notes Ultrasound used Last Modified By: Lise Ontiveros 07/24/23 15:40:10 Cultures and Specimens- IR Entry 1 Kind Culture Type Abscess Source right groin/scrotum Comments 3ml Last Modified By: STANISLAW Pena 07/23/23 14:54:32 General Case Data - IR Entry 1 Case Information Room IR 18 Case Level IR Level 2 Wound Class None Specialty SN Radiology Procedure ASA Class None Diagnosis Preop Diagnosis scrotal abscess Postop Same As Preop Yes Postop Diagnosis scrotal abscess Last Modified By: STANISLAW Pena 07/23/23 14:32:55 Procedure Case Times- IR Entry 1 Patient In Procedure Patient In OR 07/23/23 14:23:00 Patient Out of OR 07/23/23 15:01:00 Procedure Start/Stop Procedure Start Time 07/23/23 14:39:00 Procedure Stop Time 07/23/23 14:54:00 Last Modified By: STANISLAW Pena 07/23/23 14:54:09 Immediate Post Procedure Note - IR Entry 1 Immediate Post Yes Procedure Note displayed for Physician to review Closure Technique Closure Technique Other than Primary Last Modified By: STANISLAW Pena 07/23/23 14:32:30 Immediate Post Procedure Note - IR Signed By: LUCIUS GANN MD, Ph.D 07/23/23 14:55 Allergy Information- IR Entry 1 Allergies Reviewed? Yes Allergies Reviewed Medical Record With Last Modified By: STANISLAW Pena 07/23/23 14:25:49 Radiology Protocols/Time Out- IR Entry 1 Preprocedure Clinician Verifies Correct patient ID When Clinically Confirmation of correct using name & date Indicated side(s) and site(s), or MRN, Accurate Correct diagnostic and procedure, complete radiology tests Informed Consent, H & P available, Required update immediately blood products, prior to procedure, if implants, devices applicable and/or special equipment available OR/Procedure Room/Bedside Time 07/23/23 14:39:00 Clinician Verifies Correct patient identity including EMR & records using name and date or medical record number, Accurate procedure consent form, Correct patient position, Necessary equipment is available, Anticipated non-routine events with surgical team (case duration, estimated blood loss, patient specific concerns). When Applicable Confirmation correct Team Members LUCIUS GANN MD, side and site marked, Present for Time Out Ph.D, Terrell Trevizo Relevant images and G, Bollon, Clinical Sociologist results are properly Becky Landis RN labeled and [place] appropriately displayed, Alcohol based prep dry, Double verification of sterility indicators complete Instrument Sterility Team Members LUCUIS GANN MD, Verifying Sterility Ph.D, Terrell Trevizo G Procedure IR Aspiration/Drainage SN Last Modified By: STANISLAW Pena 07/23/23 14:40:45 Skin Prep- IR Entry 1 Procedure IR Aspiration/Drainage SN Skin Prep Prep Area Groin, Scrotum Side Right By LUCIUS GANN MD, Ph.D Prep Agents Chloraprep Hair Removal Method Clipped in OR Last Modified By: STANISLAW Pena 07/23/23 14:32:00 Patient Positioning- IR Entry 1 Procedure IR Aspiration/Drainage Body Position OP Supine SN Feet Uncrossed? Yes Pressure Points Yes Checked Last Modified By: STANISLAW Pena 07/23/23 14:32:08 Radiology Procedure Plan - IR Entry 1 Radiology - Nursing Care Plan Outcome Statement The patient Outcome Statement The patient receives demonstrates knowledge Cont. appropriate of the expected medication(s), safely responses to the administered during the operative/invasive perioperative/invasive procedure., The period., The patient is patient's value system, free from signs and lifestyle, ethnicity, symptoms of injury and culture are caused by extraneous considered, respected, objects (equipment, and incorporated in the instrumentation, perioperative plan of sponges, or sharps). care., The patient is free from signs and symptoms of infection., The patient is free from signs and symptoms of injury related to positioning. Radiology - Action Plan Outcomes Met? Yes Site Director STANISLAW Pena Completing Procedure Plan Last Modified By: STANISLAW Pena 07/23/23 14:32:41 Case Comments Finalized By: Lise Ontiveros Document Signatures Signed By: STANISLAW Pena 07/23/23 14:57 Lise Ontiveros 07/24/23 15:[address] [facility] 07-24-2023 Infectious disease Consult note Date of Service July 24, 2023 Reason for Consultation right groin abscess Referring Physician Dr. Rivera History of Present Illness Patient is a 52-year-old male with past medical history of morbid obesity GERD hyperlipidemia hypothyroidism complete heart block status post pacemaker placement rheumatoid arthritis on prednisone COPD chronic hypoxic respiratory failure on 4 L of nasal cannula oxygen at baseline, BERT on CPAP, tobacco use, DVT, coronary artery disease status post stents, initially came into the emergency room on 07/22/2023 with complaints of chest and epigastric pain, burning in upper abdomen as well as scrotal edema. Patient endorses dysuria upon presentation. At that time patient had a groin ultrasound as well as a scrotal ultrasound obtained. Patient noted to have a 4.6 x 3.6 x 3.1 cm subcutaneous fluid collection with tract extending to the surface of the skin in the right groin this is read as an abscess. Additionally scrotal ultrasound notable for no evidence of acute testicular torsion. Patient admitted to the hospital for concerns for scrotal cellulitis abscess and started on broad-spectrum antibiotics. Urology service consulted. General surgery consulted given fluid collection in the right groin who recommended IR guided aspiration. IR aspirated the fluid collection on July 23, 2023, per documentation by IR, dark red fluid was obtained suggesting the liquefying hematoma . Clinically patient has been afebrile patient did have leukocytosis of 19,000 which is now trended down to 16,000. Patient does have elevated ESR and CRP. Urine culture from - is mixed. Blood cultures are negative. IR guided aspiration cultures are no growth so far. Patient has been receiving vancomycin and meropenem. ID consulted for further recommendations. Review of Systems 12 point review of systems is reviewed and is negative except for noted above. Physical Exam Vitals and Measurements T: 36.4 C (Oral) TMIN: 36.4 C (Oral) TMAX: 37.0 C (Oral) HR: 80(Apical) RR: 21 BP: 135/57 SpO2: 96% Weight Dosing Weight: 194.5 kg (07/23/23) General Appearance: Patient is laying in the bed not in any apparent distress morbidly obese male HEENT: Atraumatic normocephalic, EOMI Neck: Neck supple oral mucosa moist Cardiac: first and second heart sounds audible Lungs: Clear to auscultation bilaterally Abdomen: Soft nontender nondistended bowel sounds positive Groin and testicular area examined. Patient is noted to have a dressing applied over the right groin at the site of prior aspiration. Patient has some tenderness which is palpable over the right epididymis and also over the right testicle area. Slight erythema noted. Extremities: No lower extremity edema Neurological: Grossly non focal alert awake oriented x 3 Skin: No rash Lab Results 07/24 04:00 WBC: 16.3 H Hgb: 9.8 L Hct: 32.6 L Platelet: 225 Neutrophil %: 88.6 H Glucose Level: 146 H Sodium Level: 139 Potassium Level: 4.4 BUN: 17.0 Creatinine Lvl (s): 1.07 07/23 17:49 WBC: 21.4 H Hgb: 10.5 L Hct: 35.2 L Platelet: 242 Neutrophil %: 88.3 H Glucose Level: 123 H Sodium Level: 139 Potassium Level: 4.6 BUN: 15.0 Creatinine Lvl (s): 1.13 07/23 13:41 Protime: 12.2 PT International Ratio: 1.1 Imaging Results and Diagnostics IR Aspiration/Drainage Result Date: July 23, 2023 Verified By: LUCIUS GANN MD, Ph.D CLINICAL STATEMENT: IMPRESSION: Small amount of dark red fluid was obtained suggesting a liquefying hematoma. US Scrotum Contents Result Date: July 22, 2023 Verified By: LES DWYER MD CLINICAL STATEMENT: IMPRESSION: No evidence of acute testicular torsion. Small bilateral hydroceles. Incidentally noted right testicular appendix and left testicular cyst. I have personally reviewed the images of this examination and agree with theresident's findings and interpretation. US Groin Right Result Date: July 22, 2023 Verified By: LES DWYER MD CLINICAL STATEMENT: IMPRESSION: Subcutaneous fluid collection with tract extending to the surface of the skinwhere there is skin thickening is most compatible with an abscess. Directvisualization is recommended for confirmation of this finding. Note adjacentvascularity is seen. Clinical follow-up is recommended as warranted. I have personally reviewed the images of this examination and agree with theresident's findings and interpretation. XR Chest 1 View Result Date: July 22, 2023 Verified By: BEBETO URBINA MD CLINICAL STATEMENT: IMPRESSION: 1. Bandlike parenchymal opacities in the central and lower lungs could relateto atelectasis, scarring or other pathology. There is also a dense but notclearly calcified right lung nodule. For all of these findings, CTcharacterization advised Assessment/Plan Chest pain Scrotal swelling Patient is a 52-year-old male with multiple medical comorbid conditions including morbid obesity BERT on CPAP coronary artery disease hyperlipidemia hypothyroidism GERD complete heart block status post pacemaker placement rheumatoid arthritis on prednisone, COPD, chronic hypoxic respiratory failure at 4 L of oxygen at baseline, initially presented to emergency room with scrotal and abdominal pain. Workup notable for a 4.6 x 3.6 x 3.1 cm fluid collection within the right groin area with a tract extending to the surface of the skin. No definite fluid collection in the scrotum. Urology and general surgery on board recommending continuation of IV antibiotic therapy IR aspirated the right groin abscess whereby dark red fluid was obtained suggesting of a liquefying hematoma, cultures so far negative. Leukocytosis is improved down to 16,000 At this time recommend continuation of meropenem. Patient is allergic to penicillin. We will discontinue vancomycin. If patient continues to improve likely transition him to oral regimen of levofloxacin 750 mg p.o. every 24 hours to complete a total 10 to 14-day course of treatment ID to follow. Problem List/Past Medical History Ongoing Scrotal swelling Historical No qualifying data Procedure/Surgical History Implantation of cardiac pacemaker: 06/29/23 Medications Inpatient bumetanide, 1 mg= 1 tab(s), Oral, Daily, PRN cloNIDine, 0.1 mg= 1 tab(s), Oral, q4h, PRN Dextrose 50% IV Push, 12.5 gram(s)= 25 mL, IV Push, AsDirected, PRN DuoNeb, 3 mL, Inhalation, q4hRT, PRN guaiFENesin, 200 mg= 10 mL, Oral, q4h, PRN hydrALAZINE, 10 mg= 1 tab(s), Oral, q3h, PRN Lasix, 40 mg= 1 tab(s), Oral, BID levothyroxine, 150 mcg= 1 tab(s), Oral, qDay Lipitor, 40 mg= 1 tab(s), Oral, qDay melatonin, 3 mg= 1 tab(s), Oral, qHS, PRN Merrem metoprolol succinate 25 mg oral TABLET extended release, 12.5 mg= 0.5 tab(s), Oral, BID Miralax Powder Packet, 17 gram(s)= 15 mL, Oral, qDay, PRN morphine, 4 mg= 1 mL, IV Push, q4h, PRN Percocet 325/5, 1 tab(s), Oral, q4h, PRN prednisoLONE (as base) 15 mg/5 mL oral SYRUP, 10 mg= 3.33 mL, Oral, BID Protonix, 20 mg= 1 tab(s), Oral, qDayAC Tylenol, 650 mg= 2 tab(s), Oral, q4h, PRN Tylenol, 650 mg= 2 tab(s), Oral, q4h, PRN vancomycin, 2000 mg= 500 mL, IV Piggyback, q12h Vancomycin - TROUGH reminder, 1 EA, Miscellaneous, q12hr Zofran, 4 mg= 2 mL, IV Push, q4h, PRN Home aspirin 81 mg oral tablet, chewable, 81 mg= 1 tab(s), Oral, Daily bumetanide 1 mg oral tablet, 1 mg= 1 tab(s), Oral, Daily, 7 refills, Still taking, not as prescribed: takes as needed Lasix 40 mg oral tablet, 40 mg= 1 tab(s), Oral, qDay levothyroxine 150 mcg (0.15 mg)/5 mL oral solution, 150 mcg= 5 mL, Oral, qDay levothyroxine 88 mcg (0.088 mg) oral tablet, 88 mcg= 1 tab(s), Oral, qDay Lipitor 40 mg oral tablet, 40 mg= 1 tab(s), Oral, qDay metoprolol succinate 25 mg oral TABLET extended release, 12.5 mg= 0.5 tab(s), Oral, BID pantoprazole 20 mg oral enteric coated tablet, 20 mg= 1 tab(s), Oral, BIDAC Pradaxa 75 mg oral capsule, 75 mg= 1 cap(s), Oral, BID prednisoLONE (as sodium phosphate) 10 mg oral tablet, disintegrating, 10 mg= 1 tab(s), Oral, BID Protonix 20 mg oral enteric coated tablet, 20 mg= 1 tab(s), Oral, qDayAC Allergies Green dye (non-codified) (hives) Latex (hives) Red food dyes (hives) Tape (rash) multivitamin with iron (rash) penicillin (hives) Social History Alcohol Do you ever drink more than intended: No. Has anyone been hurt or at risk by your drinking: No., 06/28/2023 Tobacco Nicotine Use: 10 or more cigarettes (1/2 pack or more)/day in last 30 days. Type: Cigarettes. Started at age: 15 Years., 06/28/2023 Immunizations No qualifying data available. Digitally Signed by GOLDIE VARGAS MD on 07/24/2023 02:[address] [facility] 07-24-2023 Note ORIGINAL EXAMINATION: ASPIRATION [id number]/2023 3:07 pm ASPIRATION PROCEDURE HISTORY: ORDERING SYSTEM PROVIDED HISTORY: Reason for Exam: Scrotal/groin abscess COMPARISON: 07/22/2023 limited ultrasound TECHNIQUE: TECHNICAL DETAILS: CONSENT: Following a thorough explanation of the risk, benefits, and alternatives for the intended procedure, informed consent was obtained. TIME OUT: Prior to the procedure a time out was performed in the presence of the patient and all personnel involved in this case. The patient identity, procedure type, procedure side/site, and allergies were verified. SEDATION: None LOCAL ANESTHETIC: Lidocaine GUIDANCE: Ultrasound INDWELLING DEVICE: None PHYSICIAN: Lucius Gann MD, PhD PROCEDURAL TECHNIQUE AND FINDINGS: Prep: [facility] and was positioned supine on the cart. The patient was prepped and draped in the usual sterile fashion. A recoater scan demonstrated the appropriate location to access the target collection in the right medial thigh. A Yueh needle was advanced into the collection under imaging guidance from an anteromedial approach. This did not recover pus. A small amount of dark red fluid was obtained suggesting a liquefying hematoma. This was sent for culture. Complications: The patient left the department with no immediate complications. IMPRESSION: Small amount of dark red fluid was obtained suggesting a liquefying hematoma. Interpreted by: Lucius Gann MD Preliminary Report By: Lucius Gann MD Electronically signed By Lucius Gann MD Dictated Date: 07/24/2023 10:48:52 AM Prelim Date: 07/24/2023 10:51:50 AM Sign Date: 07/24/2023 10:51:50 AM Ordering Provider: ALEXEI Formerly [facility], [facility] ([place]) 07-24-2023 Progress note Date of Service 07/24/2023 Chief Complaint Right scrotal pain Subjective Split shared visit between myself and Dr. Jernigan. Patient resting comfortably in bed. Denies any new overnight concerns. Continues to endorse right scrotal discomfort. He states it is somewhat improved since the procedure yesterday. Objective Vitals and Measurements T: 36.4 C (Oral) TMIN: 36.4 C (Oral) TMAX: 37.0 C (Oral) HR: 79 RR: 21 BP: 135/57 SpO2: 96% Intake and Output 7AM Yesterday to 7AM Today Intake and Output (Last 24 hours) Intake Output Urine Voided 800.00 Total Summary Total Intake 0.00 Total Output 800.00 Fluid Balance -800.00 Physical Exam General Appearance: In no acute distress Head: Normocephalic, atraumatic. EENT: HEENT exam is unremarkable. Neck: Supple. Lungs: Chest rise symmetrical. Neurological: Alert and oriented, follows simple commands. Skin: Right groin procedure site has mild ecchymosis, no signs of acute infection. Scrotum remains edematous and erythematous. Psychiatric: Calm and cooperative. Weight Dosing Weight: 194.5 kg (07/23/23) Medications Medications (22) Active Scheduled: (9) atorvastatin 40 mg tablet 40 mg 1 tab(s), Oral, qDay furosemide 40 mg tablet 40 mg 1 tab(s), Oral, BID levothyroxine 150 mcg tablet 150 mcg 1 tab(s), Oral, qDay meropenem 500 mg, IV Piggyback, q6h metoprolol succinate 25 mg ER tablet 12.5 mg 0.5 tab(s), Oral, BID pantoprazole 20 mg EC tablet 20 mg 1 tab(s), Oral, qDayAC prednisoLONE base 15 mg/5 mL syrup (60 mL) 10 mg 3.33 mL, Oral, BID vancomycin PMX 2,000 mg 500 mL, IV Piggyback, q12h vancomycin trough level 1 EA, Miscellaneous, q12hr Continuous: (0) PRN: (13) acetaminophen 325 mg Tablet 650 mg 2 tab(s), Oral, q4h acetaminophen 325 mg Tablet 650 mg 2 tab(s), Oral, q4h acetaminophen-OXYcodone 325 mg-5 mg Tablet 1 tab(s), Oral, q4h albuterol - ipratropium 2.5 mg-0.5 mg/3 mL Inhal Milka UD 3 mL, Inhalation, q4hRT bumetanide 1 mg tablet 1 mg 1 tab(s), Oral, Daily clonidine 0.1 mg tablet 0.1 mg 1 tab(s), Oral, q4h dextrose 50% Solution Disp syringe 50 mL 12.5 gram(s) 25 mL, IV Push, AsDirected guaifenesin 100 mg/5 mL Liquid SUGAR-FREE 120 mL 200 mg 10 mL, Oral, q4h hydralazine 10 mg Tablet 10 mg 1 tab(s), Oral, q3h melatonin 3 mg tablet 3 mg 1 tab(s), Oral, qHS morphine 4 mg/mL 1mL INJ 4 mg 1 mL, IV Push, q4h ondansetron 2 mg/ 1 mL 2 mL INJ 4 mg 2 mL, IV Push, q4h polyethylene glycol 3350 - UD packet 17 gram(s) 15 mL, Oral, qDay Lab Results 07/24 04:00 WBC: 16.3 H Hgb: 9.8 L Hct: 32.6 L Platelet: 225 Neutrophil %: 88.6 H Glucose Level: 146 H Sodium Level: 139 Potassium Level: 4.4 BUN: 17.0 Creatinine Lvl (s): 1.07 07/23 17:49 WBC: 21.4 H Hgb: 10.5 L Hct: 35.2 L Platelet: 242 Neutrophil %: 88.3 H Glucose Level: 123 H Sodium Level: 139 Potassium Level: 4.6 BUN: 15.0 Creatinine Lvl (s): 1.13 07/23 13:41 Protime: 12.2 PT International Ratio: 1.1 EKG No qualifying data available. Assessment/Plan 52-year-old male who was admitted [facility] secondary to scrotal swelling and concerns for a right groin/scrotal abscess. Patient underwent IR procedure on July 23, 2023 where 5 mL of probable hematoma was able to be aspirated. Patient has remained afebrile with stable vital signs over the past 24 hours. Laboratory data has been reviewed; white blood cell count is 16.3 from 21.4, hemoglobin is 9.8 from 10.5, and electrolytes are within normal limits. Patient remains on IV meropenem and vancomycin. Overall, the abscess site is improving. No plans for acute surgical intervention. Continue IV antibiotics as ordered. Continue medical management per primary physician. General surgery will sign off at this time. Please contact us in the future if needed. Case discussed with Dr. Jernigan. Addendum to follow. Digitally Signed by ZACK MEIER on 07/24/2023 10:[address] [facility] 07-24-2023 Progress note Date of Service 07/24/2023 Chief Complaint Right scrotal pain Subjective Split shared visit between myself and Dr. Jernigan. Patient resting comfortably in bed. Denies any new overnight concerns. Continues to endorse right scrotal discomfort. He states it is somewhat improved since the procedure yesterday. Objective Vitals and Measurements T: 36.4 C (Oral) TMIN: 36.4 C (Oral) TMAX: 37.0 C (Oral) HR: 79 RR: 21 BP: 135/57 SpO2: 96% Intake and Output 7AM Yesterday to 7AM Today Intake and Output (Last 24 hours) Intake Output Urine Voided 800.00 Total Summary Total Intake 0.00 Total Output 800.00 Fluid Balance -800.00 Physical Exam General Appearance: In no acute distress Head: Normocephalic, atraumatic. EENT: HEENT exam is unremarkable. Neck: Supple. Lungs: Chest rise symmetrical. Neurological: Alert and oriented, follows simple commands. Skin: Right groin procedure site has mild ecchymosis, no signs of acute infection. Scrotum remains edematous and erythematous. Psychiatric: Calm and cooperative. Weight Dosing Weight: 194.5 kg (07/23/23) Medications Medications (22) Active Scheduled: (9) atorvastatin 40 mg tablet 40 mg 1 tab(s), Oral, qDay furosemide 40 mg tablet 40 mg 1 tab(s), Oral, BID levothyroxine 150 mcg tablet 150 mcg 1 tab(s), Oral, qDay meropenem 500 mg, IV Piggyback, q6h metoprolol succinate 25 mg ER tablet 12.5 mg 0.5 tab(s), Oral, BID pantoprazole 20 mg EC tablet 20 mg 1 tab(s), Oral, qDayAC prednisoLONE base 15 mg/5 mL syrup (60 mL) 10 mg 3.33 mL, Oral, BID vancomycin PMX 2,000 mg 500 mL, IV Piggyback, q12h vancomycin trough level 1 EA, Miscellaneous, q12hr Continuous: (0) PRN: (13) acetaminophen 325 mg Tablet 650 mg 2 tab(s), Oral, q4h acetaminophen 325 mg Tablet 650 mg 2 tab(s), Oral, q4h acetaminophen-OXYcodone 325 mg-5 mg Tablet 1 tab(s), Oral, q4h albuterol - ipratropium 2.5 mg-0.5 mg/3 mL Inhal Milka UD 3 mL, Inhalation, q4hRT bumetanide 1 mg tablet 1 mg 1 tab(s), Oral, Daily clonidine 0.1 mg tablet 0.1 mg 1 tab(s), Oral, q4h dextrose 50% Solution Disp syringe 50 mL 12.5 gram(s) 25 mL, IV Push, AsDirected guaifenesin 100 mg/5 mL Liquid SUGAR-FREE 120 mL 200 mg 10 mL, Oral, q4h hydralazine 10 mg Tablet 10 mg 1 tab(s), Oral, q3h melatonin 3 mg tablet 3 mg 1 tab(s), Oral, qHS morphine 4 mg/mL 1mL INJ 4 mg 1 mL, IV Push, q4h ondansetron 2 mg/ 1 mL 2 mL INJ 4 mg 2 mL, IV Push, q4h polyethylene glycol 3350 - UD packet 17 gram(s) 15 mL, Oral, qDay Lab Results 07/24 04:00 WBC: 16.3 H Hgb: 9.8 L Hct: 32.6 L Platelet: 225 Neutrophil %: 88.6 H Glucose Level: 146 H Sodium Level: 139 Potassium Level: 4.4 BUN: 17.0 Creatinine Lvl (s): 1.07 07/23 17:49 WBC: 21.4 H Hgb: 10.5 L Hct: 35.2 L Platelet: 242 Neutrophil %: 88.3 H Glucose Level: 123 H Sodium Level: 139 Potassium Level: 4.6 BUN: 15.0 Creatinine Lvl (s): 1.13 07/23 13:41 Protime: 12.2 PT International Ratio: 1.1 EKG No qualifying data available. Assessment/Plan 52-year-old male who was admitted [facility] secondary to scrotal swelling and concerns for a right groin/scrotal abscess. Patient underwent IR procedure on July 23, 2023 where 5 mL of probable hematoma was able to be aspirated. Patient has remained afebrile with stable vital signs over the past 24 hours. Laboratory data has been reviewed; white blood cell count is 16.3 from 21.4, hemoglobin is 9.8 from 10.5, and electrolytes are within normal limits. Patient remains on IV meropenem and vancomycin. Overall, the abscess site is improving. No plans for acute surgical intervention. Continue IV antibiotics as ordered. Continue medical management per primary physician. General surgery will sign off at this time. Please contact us in the future if needed. Case discussed with Dr. Jernigan. Addendum to follow. Digitally Signed by ZACK MEIER on 07/24/2023 10:[address] [facility] 07-24-2023 Note . MICRO - Microbiology PROCEDURE: Urine Culture [*1] SOURCE: Urine, Clean Catch BODY SITE: COLLECTED DATE/TIME: 07/22/2023 22:44 EST RECEIVED DATE/TIME: 07/22/2023 22:51 EST START DATE/TIME: 07/22/2023 22:51 EST FREE TEXT SOURCE: FINAL REPORTS Final Report [] Verified Date/Time/Personnel: 07/24/2023 07:53 EST 10,000 - 50,000 cfu/ml Multiple bacterial morphotypes present. Probable Contamination. Suggest recollection if clinically indicated. PRELIMINARY REPORTS Preliminary Report [] Verified Date/Time/Personnel: 07/23/2023 09:21 EST Culture results pending. Performing Locations *1: This test was performed at: [facility], [facility] [address] [place] [address], [id number] , [facility] ([place]) 07-23-2023 Surgery Consult note Date of Service 07/23/2023 Reason for Consultation Concern for right groin/scrotal abscess Referring Physician Elda Simms APRN-CHANG History of Present Illness This is a split shared visit between myself and Dr. Jernigan This patient is a 52-year-old male with past medical history significant for morbid obesity, hyperlipidemia, hypothyroidism, complete heart block status post pacemaker placement at the end of June (on Pradaxa; last dose yesterday), rheumatoid arthritis, COPD, chronic respiratory failure requiring 4 L of oxygen via nasal cannula, obstructive sleep apnea, coronary artery disease status post stenting, and DVT who presented to [facility] on 07/22/2023 with complaints of chest pain and scrotal swelling. He stated that he began experiencing the pain to the right side of his scrotum/right groin approximately 4-5 days prior. He was started on Bactrim by his primary care provider and had no signs of improvement prompting evaluation. While in the emergency department an ultrasound of the scrotum was performed showing no evidence of acute testicular torsion, small bilateral hydroceles, and incidental findings of right testicular appendix and left testicular cyst per the report and the ultrasound of the right groin showed a subcutaneous fluid collection with a tract extending to the surface of the skin where there was skin thickening that was most compatible with an abscess per the report. His laboratory data was significant for a white blood cell count of 19.0. A urinalysis was obtained and was negative.He was started on IV antibiotic therapy and was admitted to the hospital under the medical service. Consultation was placed to the urology service secondary to the concern for a scrotal abscess. The patient was seen and evaluated by the urology service and recommended continued IV antibiotic administration and consult to the general surgery service. On examination, he was seen resting supine in bed. He complained of pain to his right groin/the right side of his scrotum. There was erythema and induration noted in the area. No morning labs to review this morning. Vital signs and I/O have been reviewed. Review of Systems All other pertinent positives and negatives are present in the HPI. All other systems are reviewed as negative unless otherwise previously mentioned. Physical Exam Vitals and Measurements HR: 85(Apical) RR: 20 BP: 167/70 SpO2: 98% HT: 185.4 cm WT: 194.5 kg BMI: 56.58 Weight Dosing Weight: 194.5 kg (07/23/23) General: Awake, alert and oriented x4. In no apparent distress. Able to answer questions appropriately and speak in full sentences. Supine in bed. HEENT: Sclera anicteric. Nasal cannula in place. Heart: Regular rate and rhythm. S1 and S2 present. Lungs: Chest rise symmetrical. Respirations unlabored. Lungs clear upon auscultation. Abdomen: Soft and nontender. Nondistended. No rigidity or guarding noted. Bowel sounds present. Scrotum: Erythema, induration, and tenderness noted with palpation of the right side of his scrotum/right groin. Extremities: Freely moving. Psychiatric: Calm and cooperative. Lab Results 07/22 12:00 WBC: 19.0 H Hgb: 11.3 L Hct: 38.9 L Platelet: 287 Neutrophil %: 86.9 H Glucose Level: 89 Sodium Level: 139 Potassium Level: 3.7 BUN: 15.0 Creatinine Lvl (s): 0.98 Imaging Results and Diagnostics US Scrotum Contents Result Date: July 22, 2023 Verified By: LES DWYER MD CLINICAL STATEMENT: IMPRESSION: No evidence of acute testicular torsion. Small bilateral hydroceles. Incidentally noted right testicular appendix and left testicular cyst. I have personally reviewed the images of this examination and agree with the resident's findings and interpretation. US Groin Right Result Date: July 22, 2023 Verified By: LES DWYER MD CLINICAL STATEMENT: IMPRESSION: Subcutaneous fluid collection with tract extending to the surface of the skin where there is skin thickening is most compatible with an abscess. Direct visualization is recommended for confirmation of this finding. Note adjacent vascularity is seen. Clinical follow-up is recommended as warranted. I have personally reviewed the images of this examination and agree with the resident's findings and interpretation. XR Chest 1 View Result Date: July 22, 2023 Verified By: BEBETO URBINA MD CLINICAL STATEMENT: IMPRESSION: 1. Bandlike parenchymal opacities in the central and lower lungs could relate to atelectasis, scarring or other pathology. There is also a dense but not clearly calcified right lung nodule. For all of these findings, CT characterization advised Assessment/Plan Chest pain Scrotal swelling This patient is a 52-year-old male admitted to the hospital under the medical service on 07/22/2023 secondary to concern for a right groin/scrotal abscess. He was started on IV antibiotics and consultations were placed to the urology and general surgery services for further evaluation. Plan: Concern for scrotal/right groin abscess Given the location of the abscess, will have interventional radiology perform an ultrasound-guided aspiration of the fluid Would recommend continued n.p.o. status until this aspiration has been completed; afterwards he may be started on a diet from the general surgery standpoint Continue IV antibiotic administration and continue to monitor his leukocytosis Further medical management per the primary medical team Thank you for allowing us to participate in the care of this patient. The case has been discussed with Dr. Jernigan. Please see his addendum for further details. Problem List/Past Medical History GERD Hypertension Hyperlipidemia Hypothyroidism Morbid obesity Complete heart block status post pacemaker placement Rheumatoid arthritis COPD Chronic respiratory failure Obstructive sleep apnea Coronary artery disease DVT Procedure/Surgical History Implantation of cardiac pacemaker: 06/29/23 Medications Inpatient bumetanide, 1 mg= 1 tab(s), Oral, Daily, PRN cloNIDine, 0.1 mg= 1 tab(s), Oral, q4h, PRN Dextrose 50% IV Push, 12.5 gram(s)= 25 mL, IV Push, AsDirected, PRN DuoNeb, 3 mL, Inhalation, q4hRT, PRN guaiFENesin, 200 mg= 10 mL, Oral, q4h, PRN hydrALAZINE, 10 mg= 1 tab(s), Oral, q3h, PRN Lasix, 40 mg= 1 tab(s), Oral, BID levothyroxine, 150 mcg= 1 tab(s), Oral, qDay Lipitor, 40 mg= 1 tab(s), Oral, qDay melatonin, 3 mg= 1 tab(s), Oral, qHS, PRN Merrem metoprolol succinate 25 mg oral TABLET extended release, 12.5 mg= 0.5 tab(s), Oral, BID Miralax Powder Packet, 17 gram(s)= 15 mL, Oral, qDay, PRN morphine, 4 mg= 1 mL, IV Push, q4h, PRN Percocet 325/5, 1 tab(s), Oral, q4h, PRN prednisoLONE (as base) 15 mg/5 mL oral SYRUP, 10 mg= 3.33 mL, Oral, BID Protonix, 20 mg= 1 tab(s), Oral, qDayAC Tylenol, 650 mg= 2 tab(s), Oral, q4h, PRN Tylenol, 650 mg= 2 tab(s), Oral, q4h, PRN vancomycin, 2000 mg= 500 mL, IV Piggyback, q12h Zofran, 4 mg= 2 mL, IV Push, q4h, PRN Home aspirin 81 mg oral tablet, chewable, 81 mg= 1 tab(s), Oral, Daily bumetanide 1 mg oral tablet, 1 mg= 1 tab(s), Oral, Daily, 7 refills, Still taking, not as prescribed: takes as needed Lasix 40 mg oral tablet, 40 mg= 1 tab(s), Oral, qDay levothyroxine 150 mcg (0.15 mg)/5 mL oral solution, 150 mcg= 5 mL, Oral, qDay levothyroxine 88 mcg (0.088 mg) oral tablet, 88 mcg= 1 tab(s), Oral, qDay Lipitor 40 mg oral tablet, 40 mg= 1 tab(s), Oral, qDay metoprolol succinate 25 mg oral TABLET extended release, 12.5 mg= 0.5 tab(s), Oral, BID pantoprazole 20 mg oral enteric coated tablet, 20 mg= 1 tab(s), Oral, BIDAC Pradaxa 75 mg oral capsule, 75 mg= 1 cap(s), Oral, BID prednisoLONE (as sodium phosphate) 10 mg oral tablet, disintegrating, 10 mg= 1 tab(s), Oral, BID Protonix 20 mg oral enteric coated tablet, 20 mg= 1 tab(s), Oral, qDayAC Allergies Green dye (non-codified) (hives) Latex (hives) Red food dyes (hives) Tape (rash) multivitamin with iron (rash) penicillin (hives) Social History Alcohol Do you ever drink more than intended: No. Has anyone been hurt or at risk by your drinking: No., 06/28/2023 Tobacco Nicotine Use: 10 or more cigarettes (1/2 pack or more)/day in last 30 days. Type: Cigarettes. Started at age: 15 Years., 06/28/2023 Immunizations No qualifying data available. Digitally Signed by ALEXEI BARAJAS on 07/23/2023 01:[address] [facility] 07-23-2023 Procedure note Interventional Radiology Procedure Note Pre-procedure Diagnosis: abscess Post-procedure Diagnosis: probable hematoma Procedure: aspiration Technique/Findings: ultrasound guided aspiration produced only 4ml of dark blood thought to represent a portion of a liquifying hematoma. Full report to follow. Orders in Cerner. === Performed by: Lucius Gann MD, PhD Indoor Landscaper/Gardener: None Complications: None Estimated Blood loss: Minimal Specimen: 4ml dark blood for Cx Digitally Signed by LUCIUS GANN MD, Ph.D on 07/23/2023 03:[address] [facility] 07-23-2023 Note ORIGINAL EXAMINATION: ASPIRATION DIEIVICEN38/21/2023 3:07 pm ASPIRATION PROCEDURE HISTORY: ORDERING SYSTEM PROVIDED HISTORY: Reason for Exam: Scrotal/groin abscess COMPARISON: 07/22/2023 limited ultrasound TECHNIQUE: TECHNICAL DETAILS: CONSENT: Following a thorough explanation of the risk, benefits, and alternatives for the intended procedure, informed consent was obtained. TIME OUT: Prior to the procedure a time out was performed in the presence of the patient and all personnel involved in this case. The patient identity, procedure type, procedure side/site, and allergies were verified. SEDATION: None LOCAL ANESTHETIC: Lidocaine GUIDANCE: Ultrasound INDWELLING DEVICE: None PHYSICIAN: Lucius Gann MD, PhD PROCEDURAL TECHNIQUE AND FINDINGS: Prep: The patient was transferred to the [facility] and was positioned supine on the cart. The patient was prepped and draped in the usual sterile fashion. A recoater scan demonstrated the appropriate location to access the target collection in the right medial thigh. A Yueh needle was advanced into the collection under imaging guidance from an anteromedial approach. This did not recover pus. A small amount of dark red fluid was obtained suggesting a liquefying hematoma. This was sent for culture. Complications: The patient left the department with no immediate complications. IMPRESSION: Small amount of dark red fluid was obtained suggesting a liquefying hematoma. Interpreted by: Lucius Gann MD Preliminary Report By: Lucius Gann MD Electronically signed By Lucius Gann MD Dictated Date: 07/24/2023 10:48:52 AM Prelim Date: 07/24/2023 10:51:50 AM Sign Date: 07/24/2023 10:51:50 AM Ordering Provider: ALEXEI [facility] 07-23-2023 Evaluation + Plan note Extrac pawan from: Title:Clinical Document Author:LES RINCON MD Date:07/23/23 [facility] History and Physical Date of Admission: patient presents on July 23, 2023 Chief complaint: chest pain and scrotal pain History of present illness: History is taken from talking with emergency room physician Dr. paola calderon as well as talking with the patient. Patient has a past medical history of morbid obesity, hyperlipidemia, Gerd, hypothyroidism, complete heart block status post recent pacemaker placement, rheumatoid arthritis on prednisone, COPD, chronic hypoxic respiratory failure on 4 L nasal cannula, BERT on CPAP, tobacco abuse, DVT, coronary artery disease status post stents. Patient was last discharged from here from the cardiology service on July 02, 2023 and during that admission he was here for heart block and had a pacemaker placed. Patient reports that he came in today as he is been having some tenderness around the site of the pacemaker. However his main concern was progressively worsening scrotal pain and swelling while on Bactrim. He denies fevers, chills or night sweats. The patient reports that he has chronic intermittent skin lesions and in the past occasionally they would need Lanced. He reports that over the last several weeks he is had progressively worsening scrotal pain and redness. He reports that he is had skin lesions of the scrotum in the past. Patient reports that his primary care physician put them on Bactrim which has been on for three months which is for prophylaxis and treatment of these skin lesions. Since presenting to the emergency room the patient has been afebrile, hemodynamically's blood pressure 182/86, 92% for liters nasal cannula. The following labs and imaging were personally reviewed WBC 19.0 hemoglobin 11.3 which is around his baseline urinalysis not concerning for infection CMP within normal limits high-sensitivity troponin 10.6 lipase 26 chest x-ray showed atelectasis ultrasound of the scrotum showed incidental right testicular appendix and left testicular cyst. Groin ultrasound showed findings concerning for abscess. EKG personally reviewed and interpreted showed sinus rhythm with no ST elevation or ST depression. In the emergency room the patient was given meropenem, clindamycin, vancomycin, fentanyl and Zofran. Past medical history: Tobacco use Implantation of cardiac pacemaker: 06/29/23 Family history: hypertension Social history: smokes a half pack of cigarettes a day Medications: Home Medications (11) Active, medications were not verified by pharmacy at the time of this dictation aspirin 81 mg oral tablet, chewable 81 mg = 1 tab(s), Oral, Daily bumetanide 1 mg oral tablet 1 mg = 1 tab(s), Oral, Daily Lasix 40 mg oral tablet 40 mg = 1 tab(s), Oral, qDay levothyroxine 150 mcg (0.15 mg)/5 mL oral solution 150 mcg = 5 mL, Oral, qDay levothyroxine 88 mcg (0.088 mg) oral tablet 88 mcg = 1 tab(s), Oral, qDay Lipitor 40 mg oral tablet 40 mg = 1 tab(s), Oral, qDay metoprolol succinate 25 mg oral TABLET extended release 12.5 mg = 0.5 tab(s), Oral, BID pantoprazole 20 mg oral enteric coated tablet 20 mg = 1 tab(s), Oral, BIDAC Pradaxa 75 mg oral capsule 75 mg = 1 cap(s), Oral, BID prednisoLONE (as sodium phosphate) 10 mg oral tablet, disintegrating 10 mg = 1 tab(s), Oral, BID Protonix 20 mg oral enteric coated tablet 20 mg = 1 tab(s), Oral, qDayAC Allergies: Latex (hives) multivitamin with iron (rash) penicillin (hives) Tape (rash) Review of systems: See HPI for pertinent positives and negatives. All other review of systems have been reviewed and they are negative. Vitals Signs(Last 24 hrs)__Last Charted Minimum Maximum Temp36.7(JUL 22 11:40)36.7(JUL 22 11:40)36.7(JUL 22 11:40) Heart RateH 105(JUL 22 20:51)64(JUL 22 16:11)H 105(JUL 22 20:51) Resp Rate20(JUL 22 20:51)18(JUL 22 14:50)20(JUL 22 11:40) SBPH 182(JUL 22 20:51)120(JUL 22 14:50)H 182(JUL 22 20:51) DBP86(JUL 22 20:51)70(JUL 22 14:50)86(JUL 22 20:51) Physical examination: HEENT: No Pallor, No Icterus Cardiac: RRR, No murmur Lungs: CTA, good air entry Abdomen: Soft Non tender Musculoskeletal: No joint pains or swelling Extremities: No edema, good pulses Neurological: Alert, no deficits Skin: scrotal pain and erythema Labs: WBC: 19 10^3/mcL High (07/22/23 12:00:00) RBC: 4.97 10^6/mcL (07/22/23 12:00:00) Hgb: 11.3 G/dL Low (07/22/23 12:00:00) Hct: 38.9 % Low (07/22/23 12:00:00) MCV: 78.2 fL Low (07/22/23 12:00:00) MCH: 22.7 pg Low (07/22/23 12:00:00) MCHC: 29 G/dL Low (07/22/23 12:00:00) RDW: 25.7 % High (07/22/23 12:00:00) Platelet: 287 10^3/mcL (07/22/23 12:00:00) MPV: 7.7 fL (07/22/23 12:00:00) Monocyte Distribution Width: 19.11 (07/22/23 12:00:00) Neutrophil %: 86.9 % High (07/22/23 12:00:00) Lymphocyte %: 7.9 % Low (07/22/23 12:00:00) Monocyte %: 4.5 % (07/22/23 12:00:00) Eosinophil %: 0.4 % (07/22/23 12:00:00) Basophil %: 0.3 % (07/22/23 12:00:00) Neutrophil, Absolute: 16.5 10^3/mcL High (07/22/23 12:00:00) Lymphocyte, Absolute: 1.5 10^3/mcL (07/22/23 12:00:00) Monocyte, Absolute: 0.9 10^3/mcL (07/22/23 12:00:00) Eosinophil, Absolute: 0.1 10^3/mcL (07/22/23 12:00:00) Basophil, Absolute: 0.1 10^3/mcL (07/22/23 12:00:00) Platelet Estimate: Adequate (07/22/23 12:00:00) Anisocytosis: 2+ (07/22/23 12:00:00) Poik: 1+ (07/22/23 12:00:00) Microcytosis: 2+ (07/22/23 12:00:00) Stomatocytes: 1+ (07/22/23 12:00:00) Toxic Gran: 1+ (07/22/23 12:00:00) UA Specimen Type: Clean Catch (07/22/23 22:44:00) UA Color: DARK YELLOW (07/22/23 22:44:00) UA Appear: Clear (07/22/23 22:44:00) UA Spec Grav: 1.025 (07/22/23 22:44:00) UA Glucose: Negative. (07/22/23 22:44:00) UA Bili: Negative. (07/22/23 22:44:00) UA Ketones: Trace (07/22/23 22:44:00) UA Blood: Negative. (07/22/23 22:44:00) UA pH: 7.0 (07/22/23 22:44:00) UA Protein: Negative.1 (07/22/23 22:44:00) UA Urobilinogen: 1.0 (07/22/23 22:44:00) UA Nitrite: Negative. (07/22/23 22:44:00) UA Leuk Est: Negative. (07/22/23 22:44:00) Glucose Level: 89 mg/dL (07/22/23 12:00:00) Sodium Level: 139 mEq/L (07/22/23 12:00:00) Potassium Level: 3.7 mEq/L (07/22/23 12:00:00) Chloride: 99 mEq/L (07/22/23 12:00:00) CO2: 33 mEq/L High (07/22/23 12:00:00) Electrolyte Balance: 7 mEq/L (07/22/23 12:00:00) BUN: 15 mg/dL (07/22/23 12:00:00) Creatinine Lvl (s): 0.98 mg/dL (07/22/23 12:00:00) BUN/Creatinine Ratio: 15.3 ratio (07/22/23 12:00:00) Calcium Lvl: 9.4 mg/dL (07/22/23 12:00:00) Total Protein: 7.4 G/dL (07/22/23 12:00:00) Albumin Level: 3.1 G/dL Low (07/22/23 12:00:00) Globulin: 4.3 G/dL High (07/22/23 12:00:00) A/G Ratio: 0.7 ratio Low (07/22/23 12:00:00) Bili Total: 0.6 mg/dL (07/22/23 12:00:00) Alk Phos: 140 U/L High (07/22/23 12:00:00) AST/SGOT: 13 U/L (07/22/23 12:00:00) ALT/SGPT: 14 U/L (07/22/23 12:00:00) GFR Non-: >60 (07/22/23 12:00:00) GFR : >60 (07/22/23 12:00:00) Lipase Level: 26 U/L (07/22/23 12:00:00) Troponin I High Sensitivity: 10.65 ng/L (07/22/23 14:19:00) Troponin I High Sensitivity: 11.1 ng/L (07/22/23 12:00:00) Urinalysis UA Specimen Type: Clean Catch (07/22/23 22:44:00) UA Color: DARK YELLOW (07/22/23 22:44:00) UA Appear: Clear (07/22/23 22:44:00) UA Spec Grav: 1.025 (07/22/23 22:44:00) UA Glucose: Negative. (07/22/23 22:44:00) UA Bili: Negative. (07/22/23 22:44:00) UA Ketones: Trace (07/22/23 22:44:00) UA Blood: Negative. (07/22/23 22:44:00) UA pH: 7.0 (07/22/23 22:44:00) UA Protein: Negative.1 (07/22/23 22:44:00) UA Urobilinogen: 1.0 (07/22/23 22:44:00) UA Nitrite: Negative. (07/22/23 22:44:00) UA Leuk Est: Negative. (07/22/23 22:44:00) Assessment and plan: Patient presents on July 23, 2023 with multiple complaints including scrotal pain as well as pain around the site of his recent pacemaker placement. Acute pain of the scrotum concerning for cellulitis with possible abscess. Per the patient he has had multiple skin infectious type lesions on different areas of his body. For this reason he has been on Bactrim for the last three months. I will order blood cultures. Will check an ESR and CRP. I will continue the patient on vancomycin and meropenem. NPO with IV fluids in case of procedure. Will consult urology. Poorly controlled hypertension. Continue home medications. As needed hydralazine and clonidine. Chronic hypoxic respiratory failure on 4 L nasal cannula. Stable Chronic anemia. Stable Leukocytosis. Of note the patient does have a chronic leukocytosis and he is also on chronic steroids. Chronic anemia. Stable Morbid obesity Hyperlipidemia. continue statin Gerd. Continue Protonix Hypothyroidism. Continue Synthroid Complete heart block status post recent pacemaker placement. The site of the pacemaker does not appear infected. Rheumatoid arthritis on chronic steroids Chronic COPD not in exacerbation BERT on CPAP Tobacco abuse Chronic DVT. I will hold his Pradaxa in case of procedure Coronary artery disease. Will hold his aspirin in case of procedure Prophylaxis SCDs Code status full code Future Appointments Appointment Date:07/30/2023 08:30:00 AM Scheduled Provider: Location:[facility] Appointment Type:INF Labwork Appointment Date:07/30/2023 08:45:00 AM Scheduled Provider: Location:INF Appointment Type:INF Infusion: Antibiotic (1 Hour) Appointment Date:07/31/2023 08:30:00 AM Scheduled Provider: Location:INF Appointment Type:INF Labwork Appointment Date:07/31/2023 08:45:00 AM Scheduled Provider: Location:INF Appointment Type:INF Infusion: Antibiotic (1 Hour) Appointment Date:08/01/2023 08:30:00 AM Scheduled Provider: Location:INF Appointment Type:INF Infusion: Antibiotic (1 Hour) Appointment Date:08/02/2023 08:30:00 AM Scheduled Provider: Location:INF Appointment Type:INF Infusion: Antibiotic (1 Hour) Appointment Date:08/03/2023 08:30:00 AM Scheduled Provider: Location:INF Appointment Type:INF Infusion: Antibiotic (1 Hour) Appointment Date:08/04/2023 08:30:00 AM Scheduled Provider: Location:INF Appointment Type:INF Labwork Appointment Date:08/04/2023 08:45:00 AM Scheduled Provider: Location:INF Appointment Type:INF Infusion: Antibiotic (1 Hour) Appointment Date:08/05/2023 08:30:00 AM Scheduled Provider: Location:INF Appointment Type:INF Labwork Appointment Date:08/05/2023 08:45:00 AM Scheduled Provider: Location:INF Appointment Type:INF Infusion: Antibiotic (1 Hour) Appointment Date:08/06/2023 08:30:00 AM Scheduled Provider: Location:INF Appointment Type:INF Labwork Appointment Date:08/06/2023 08:45:00 AM Scheduled Provider: Location:INF Appointment Type:INF Infusion: Antibiotic (1 Hour) Appointment Date:08/07/2023 08:30:00 AM Scheduled Provider: Location:INF Appointment Type:INF Labwork Appointment Date:08/07/2023 08:45:00 AM Scheduled Provider: Location:INF Appointment Type:INF Infusion: Antibiotic (1 Hour) Appointment Date:08/08/2023 08:30:00 AM Scheduled Provider: Location:INF Appointment Type:INF Infusion: Antibiotic (1 Hour) Appointment Date:08/09/2023 08:30:00 AM Scheduled Provider: Location:INF Appointment Type:INF Infusion: Antibiotic (1 Hour) Appointment Date:08/10/2023 08:30:00 AM Scheduled Provider: Location:INF Appointment Type:INF Labwork Appointment Date:08/10/2023 08:45:00 AM Scheduled Provider: Location:INF Appointment Type:INF Infusion: Antibiotic (1 Hour) Appointment Date:08/11/2023 08:30:00 AM Scheduled Provider: Location:INF Appointment Type:INF Labwork Appointment Date:08/11/2023 08:45:00 AM Scheduled Provider: Location:INF Appointment Type:INF Infusion: Antibiotic (1 Hour) Appointment Date:08/12/2023 08:30:00 AM Scheduled Provider: Location:INF Appointment Type:INF Labwork Appointment Date:08/12/2023 08:45:00 AM Scheduled Provider: Location:INF Appointment Type:INF Infusion: Antibiotic (1 Hour) Appointment Date:08/13/2023 08:30:00 AM Scheduled Provider: Location:INF Appointment Type:INF Labwork Appointment Date:08/13/2023 08:45:00 AM Scheduled Provider: Location:INF Appointment Type:INF Infusion: Antibiotic (1 Hour) Appointment Date:08/13/2023 01:30:00 PM Scheduled Provider:HANNAH VALDES Location:UROLOGY Appointment Type:URO OV Appointment Date:2023 08:30:00 AM Scheduled Provider: Location:INF Appointment Type:INF Labwork Appointment Date:2023 08:45:00 AM Scheduled Provider: Location:INF Appointment Type:INF Infusion: Antibiotic (1 Hour) Appointment Date:08/15/2023 08:30:00 AM Scheduled Provider: Location:INF Appointment Type:INF Infusion: Antibiotic (1 Hour) Appointment Date:08/16/2023 08:30:00 AM Scheduled Provider: Location:INF Appointment Type:INF Infusion: Antibiotic (1 Hour) Appointment Date:08/17/2023 08:30:00 AM Scheduled Provider: Location:INF Appointment Type:INF Labwork Appointment Date:08/17/2023 08:45:00 AM Scheduled Provider: Location:INF Appointment Type:INF Infusion: Antibiotic (1 Hour) Appointment Date:08/18/2023 08:30:00 AM Scheduled Provider: Location:INF Appointment Type:INF Labwork Appointment Date:08/18/2023 08:45:00 AM Scheduled Provider: Location:INF Appointment Type:INF Infusion: Antibiotic (1 Hour) Appointment Date:08/19/2023 08:30:00 AM Scheduled Provider: Location:INF Appointment Type:INF Labwork Appointment Date:08/19/2023 08:45:00 AM Scheduled Provider: Location:INF Appointment Type:INF Infusion: Antibiotic (1 Hour) Appointment Date:08/20/2023 08:30:00 AM Scheduled Provider: Location:INF Appointment Type:INF Labwork Appointment Date:08/20/2023 08:45:00 AM Scheduled Provider: Location:INF Appointment Type:INF Infusion: Antibiotic (1 Hour) Appointment Date:08/21/2023 08:30:00 AM Scheduled Provider: Location:INF Appointment Type:INF Labwork Appointment Date:08/21/2023 08:45:00 AM Scheduled Provider: Location:INF Appointment Type:INF Infusion: Antibiotic (1 Hour) Appointment Date:08/22/2023 08:30:00 AM Scheduled Provider: Location:INF Appointment Type:INF Infusion: Antibiotic (1 Hour) Appointment Date:08/23/2023 08:30:00 AM Scheduled Provider: Location:INF Appointment Type:INF Infusion: Antibiotic (1 Hour) Appointment Date:08/24/2023 08:30:00 AM Scheduled Provider: Location:INF Appointment Type:INF Labwork Appointment Date:08/24/2023 08:45:00 AM Scheduled Provider: Location:INF Appointment Type:INF Infusion: Antibiotic (1 Hour) Appointment Date:08/25/2023 08:30:00 AM Scheduled Provider: Location:INF Appointment Type:INF Labwork Appointment Date:08/25/2023 08:45:00 AM Scheduled Provider: Location:INF Appointment Type:INF Infusion: Antibiotic (1 Hour) Appointment Date:08/26/2023 08:30:00 AM Scheduled Provider: Location:INF Appointment Type:INF Labwork Appointment Date:08/26/2023 08:45:00 AM Scheduled Provider: Location:INF Appointment Type:INF Infusion: Antibiotic (1 Hour) Appointment Date:08/27/2023 08:30:00 AM Scheduled Provider: Location:INF Appointment Type:INF Labwork Appointment Date:08/27/2023 08:45:00 AM Scheduled Provider: Location:INF Appointment Type:INF Infusion: Antibiotic (1 Hour) Appointment Date:09/28/2023 10:00:00 AM Scheduled Provider: Location:[facility] Appointment Type:CV Office Procedure ICD Appointment Date:12/30/2023 01:15:00 PM Scheduled Provider: Location:[facility] Appointment Type:CV Remote Procedure HM Diagnostic Tests Pending * Culture Body Fluid with Gram Stain 07/23/[address] [facility] 12-21-2023 Surgery Consult note Date of Service 07/23/2023 Reason for Consultation Concern for right groin/scrotal abscess Referring Physician Elda Simms, LUZMA-CHANG History of Present Illness This is a split shared visit between myself and Dr. Jernigan This patient is a 52-year-old male with past medical history significant for morbid obesity, hyperlipidemia, hypothyroidism, complete heart block status post pacemaker placement at the end of June (on Pradaxa; last dose yesterday), rheumatoid arthritis, COPD, chronic respiratory failure requiring 4 L of oxygen via nasal cannula, obstructive sleep apnea, coronary artery disease status post stenting, and DVT who presented to [facility] on 07/22/2023 with complaints of chest pain and scrotal swelling. He stated that he began experiencing the pain to the right side of his scrotum/right groin approximately 4-5 days prior. He was started on Bactrim by his primary care provider and had no signs of improvement prompting evaluation. While in the emergency department an ultrasound of the scrotum was performed showing no evidence of acute testicular torsion, small bilateral hydroceles, and incidental findings of right testicular appendix and left testicular cyst per the report and the ultrasound of the right groin showed a subcutaneous fluid collection with a tract extending to the surface of the skin where there was skin thickening that was most compatible with an abscess per the report. His laboratory data was significant for a white blood cell count of 19.0. A urinalysis was obtained and was negative.He was started on IV antibiotic therapy and was admitted to the hospital under the medical service. Consultation was placed to the urology service secondary to the concern fora scrotal abscess. The patient was seen and evaluated by the urology service and recommended continued IV antibiotic administration and consult to the general surgery service. On examination, he was seen resting supine in bed. He complained of pain to his right groin/the right side of his scrotum. There was erythema and induration noted in the area. No morning labs to review this morning. Vital signs and I/O have been reviewed. Review of Systems All other pertinent positives and negatives are present in the HPI. All other systems are reviewed as negative unless otherwise previously mentioned. Physical Exam Vitals and Measurements HR: 85(Apical) RR: 20 BP: 167/70 SpO2: 98% HT: 185.4 cm WT: 194.5 kg BMI: 56.58 Weight Dosing Weight: 194.5 kg (07/23/23) General: Awake, alert and oriented x4. In no apparent distress. Able to answer questions appropriately and speak in full sentences. Supine in bed. HEENT: Sclera anicteric. Nasal cannula in place. Heart: Regular rate and rhythm. S1 and S2 present. Lungs: Chest rise symmetrical. Respirations unlabored. Lungs clear upon auscultation. Abdomen: Soft and nontender. Nondistended. No rigidity or guarding noted. Bowel sounds present. Scrotum: Erythema, induration, and tenderness noted with palpation of the right side of his scrotum/right groin. Extremities: Freely moving. Psychiatric: Calm and cooperative. Lab Results 07/22 12:00 WBC: 19.0 H Hgb: 11.3 L Hct: 38.9 L Platelet: 287 Neutrophil %: 86.9 H Glucose Level: 89 Sodium Level: 139 Potassium Level: 3.7 BUN: 15.0 Creatinine Lvl (s): 0.98 Imaging Results and Diagnostics US Scrotum Contents Result Date: July 22, 2023 Verified By: LES DWYER MD CLINICAL STATEMENT: IMPRESSION: No evidence of acute testicular torsion. Small bilateral hydroceles. Incidentally notedright testicular appendix and left testicular cyst. I have personally reviewed the images of this examination and agree with the resident's findings and interpretation. US Groin Right Result Date: July 22, 2023 Verified By: LES DWYER MD CLINICAL STATEMENT: IMPRESSION: Subcutaneous fluid collection with tract extending to the surface of the skin where there is skin thickening is most compatible with an abscess. Direct visualization is recommended for confirmation of this finding. Note adjacent vascularity is seen. Clinical follow-up is recommended as warranted. I have personally reviewed the images of this examination and agree with the resident's findings and interpretation. XR Chest 1 View Result Date: July 22, 2023 Verified By: BEBETO URBINA MD CLINICAL STATEMENT: IMPRESSION: 1. Bandlike parenchymal opacities in the central and lower lungs could relate to atelectasis, scarring or other pathology. There is also a dense but not clearly calcified right lung nodule. For all of these findings, CT characterization advised Assessment/Plan Chest pain Scrotal swelling This patient is a 52-year-old male admitted to the hospital under the medical service on 07/22/2023secondary to concern for a right groin/scrotal abscess. He was started on IV antibiotics and consultations were placed to the urology and general surgery services for further evaluation. Plan: Concern for scrotal/right groin abscess Given the location of the abscess, will have interventional radiology perform an ultrasound-guided aspiration of the fluid Would recommend continued n.p.o. status until this aspiration has been completed; afterwards he maybe started on a diet from the general surgery standpoint Continue IV antibiotic administration and continue to monitor his leukocytosis Further medical management per the primary medical team Thank you for allowing us to participate in the care of this patient. The case has been discussed with Dr. Jernigan. Please see his addendum for further details. Problem List/Past Medical History GERD Hypertension Hyperlipidemia Hypothyroidism Morbid obesity Complete heart block status post pacemaker placement Rheumatoid arthritis COPD Chronic respiratory failure Obstructive sleep apnea Coronary artery disease DVT Procedure/Surgical History Implantation of cardiac pacemaker: 06/29/23 Medications Inpatient bumetanide, 1 mg= 1 tab(s), Oral, Daily, PRN cloNIDine, 0.1 mg= 1 tab(s), Oral, q4h, PRN Dextrose 50% IV Push, 12.5 gram(s)= 25 mL, IV Push, AsDirected, PRN DuoNeb, 3 mL, Inhalation, q4hRT, PRN guaiFENesin, 200 mg= 10 mL, Oral, q4h, PRN hydrALAZINE, 10 mg= 1 tab(s), Oral, q3h, PRN Lasix, 40 mg= 1 tab(s), Oral, BID levothyroxine, 150 mcg= 1 tab(s), Oral, qDay Lipitor, 40 mg= 1 tab(s), Oral, qDay melatonin, 3 mg= 1 tab(s), Oral, qHS, PRN Merrem metoprolol succinate 25 mg oral TABLET extended release, 12.5 mg= 0.5 tab(s), Oral, BID Miralax Powder Packet, 17 gram(s)= 15 mL, Oral, qDay, PRN morphine, 4 mg= 1 mL, IV Push, q4h, PRN Percocet 325/5, 1 tab(s), Oral, q4h, PRN prednisoLONE (as base) 15 mg/5 mL oral SYRUP, 10 mg= 3.33 mL, Oral, BID Protonix, 20 mg= 1 tab(s), Oral, qDayAC Tylenol, 650 mg= 2 tab(s), Oral, q4h, PRN Tylenol, 650 mg= 2 tab(s), Oral, q4h, PRN vancomycin, 2000 mg= 500 mL, IV Piggyback, q12h Zofran, 4 mg= 2 mL, IV Push, q4h, PRN Home aspirin 81 mg oral tablet, chewable, 81 mg= 1 tab(s), Oral, Daily bumetanide 1 mg oral tablet, 1 mg= 1 tab(s), Oral, Daily, 7 refills, Still taking, not as prescribed: takes as needed Lasix 40 mg oral tablet, 40 mg= 1 tab(s), Oral, qDay levothyroxine 150 mcg (0.15 mg)/5 mL oral solution, 150 mcg= 5 mL, Oral, qDay levothyroxine 88 mcg (0.088 mg) oral tablet, 88 mcg= 1 tab(s), Oral, qDay Lipitor 40 mg oral tablet, 40 mg= 1 tab(s), Oral, qDay metoprolol succinate 25 mg oral TABLET extended release, 12.5 mg= 0.5 tab(s), Oral, BID pantoprazole 20 mg oral enteric coated tablet, 20 mg= 1 tab(s), Oral, BIDAC Pradaxa 75 mg oral capsule, 75 mg= 1 cap(s), Oral, BID prednisoLONE (as sodium phosphate) 10 mg oral tablet, disintegrating, 10 mg= 1 tab(s), Oral, BID Protonix 20 mg oral enteric coated tablet, 20 mg= 1 tab(s), Oral, qDayAC Allergies Green dye (non-codified) (hives) Latex (hives) Red food dyes (hives) Tape (rash) multivitamin with iron (rash) penicillin (hives) Social History Alcohol Do you ever drink more than intended: No. Has anyone been hurt or at risk by your drinking: No., 06/28/2023 Tobacco Nicotine Use: 10 or more cigarettes (1/2 pack or more)/day in last 30 days. Type: Cigarettes. Started at age: 15 Years., 06/28/2023 Immunizations No qualifying data available. Digitally Signed by ALEXEI BARAJAS on 07/23/2023 01:[address] [id number] Urology Consult note Date of Service 07/23/23 Reason for Consultation scrotal swelling/pain Referring Physician Dr. Rincon History of Present Illness This is a 52 year old male, not known to [facility]. Patient presented to the ER last night for worsening scrotal pain and swelling. Of note, he was recently discharged on 07/02/23 after he had a pacemaker placed for heart block. PMH includes morbid obesity, hyperlipidemia, GERD, hypothyroidism, complete heart block status post recent pacemaker placement, rheumatoid arthritis on prednisone, COPD, chronic hypoxic respiratory failure on 4 L nasal cannula, BERT on CPAP, tobacco abuse, DVT, coronary artery disease status post stents. Patient reports he has chronic skin lesions that he usuallytakes Bactrim for. He reports sometimes they need lanced or they pop and drain on their own. In theER his UA was negative. WBC 19. Scrotal US shows incidental right testicular appendix and left testicular cyst. Groin US of the right groin concerning for possible abscess. He was given meropenem, clindamycin, vancomycin in the ER. Patient seen and examined this AM. He reports the swelling has improved overnight. No drainage fromscrotum or groin. He reports he was on Bactrim as an outpatient but symptoms worsened so he came toER. On exam bilateral testicles are descended. He does have some right swelling to the right testicle, no palpable fluid collection in the testicle. No drainage or eschar. In the groin there is an area of induration. Patient denies any fevers or chills. He denies difficulty urinating. Review of Systems See HPI for pertinent positives and negatives. All other systems reviewed and negative. Physical Exam Vitals and Measurements T: 36.7 C (Oral) HR: 106(Monitored) RR: 20 BP: 167/70 SpO2: 98% HT: 185.4 cm WT: 194.5 kg BMI: 56.58 Weight Dosing Weight: 194.5 kg (07/23/23) GENERAL: 52 year old male appears to be in no acute distress. No family present. SKIN: warm and dry. No rashes noted. HEENT: mucous membranes moist. LUNGS: no use of accessory muscles. ABDOMEN: Soft, non distended, non tender GENITOURINARY: Scrotal exam right sided tenderness, right sided swelling MUSCULOSKELETAL: Moves all extremities x 4. VASCULAR: Noedema. NEUROLOGICAL: A&O x3. No focal deficits. Assisted device none Lab Results 07/22 12:00 WBC: 19.0 H Hgb: 11.3 L Hct: 38.9 L Platelet: 287 Neutrophil %: 86.9 H Glucose Level: 89 Sodium Level: 139 Potassium Level: 3.7 BUN: 15.0 Creatinine Lvl (s): 0.98 Imaging Results and Diagnostics US Scrotum Contents Result Date: July 22, 2023 Verified By: LES DWYER MD CLINICAL STATEMENT: IMPRESSION: No evidence of acute testicular torsion. Small bilateral hydroceles. Incidentally notedright testicular appendix and left testicular cyst. I have personally reviewed the images of this examination and agree with theresident's findings and interpretation. US Groin Right Result Date: July 22, 2023 Verified By: LES DWEYR MD CLINICAL STATEMENT: IMPRESSION: Subcutaneous fluid collection with tract extending to the surface of the skinwhere there is skin thickening is most compatible with an abscess. Directvisualization is recommended for confirmation of this finding. Note adjacentvascularity is seen. Clinical follow-up is recommended as warranted. I have personally reviewed the images of this examination and agree with theresident's findings and interpretation. XR Chest 1 View Result Date: July 22, 2023 Verified By: BEBETO URBINA MD CLINICAL STATEMENT: IMPRESSION: 1. Bandlike parenchymal opacities in the central and lower lungs could relateto atelectasis, scarring or other pathology. There is also a dense but notclearly calcified right lung nodule.For all of these findings, CTcharacterization advised Assessment/Plan 1. Scrotal swelling Patient reports a long history of skin lesions that either pop and drain or need lanced. He does note that his right sided scrotal swelling and pain has decreased overnight. On exam bilateral testicles are descended. He does have some swelling and tenderness to the right testicle, no palpable fluidcollection. No drainage or eschar. In the right groin there is an area of induration. I discussed the scrotal US and groin US results with the patient. We discussed there is no fluid collection in the scrotum. We discussed at this time recommend continuation of IV antibiotics and monitor. Due to findings of fluid collection in the right groin I do recommend general surgery consult as they may feel this should be drained. Urology will follow. Problem List/Past Medical History Ongoing Scrotal swelling Historical No qualifying data Procedure/Surgical History Implantation of cardiac pacemaker: 06/29/23 Medications Inpatient bumetanide, 1 mg= 1 tab(s), Oral, Daily, PRN cloNIDine, 0.1 mg= 1 tab(s), Oral, q4h, PRN Dextrose 50% IV Push, 12.5 gram(s)= 25 mL, IV Push, AsDirected, PRN DuoNeb, 3 mL, Inhalation, q4hRT, PRN guaiFENesin, 200 mg= 10 mL, Oral, q4h, PRN hydrALAZINE, 10 mg= 1 tab(s), Oral, q3h, PRN Lasix, 40 mg= 1 tab(s), Oral, BID levothyroxine, 150 mcg= 1 tab(s), Oral, qDay Lipitor, 40 mg= 1 tab(s), Oral, qDay melatonin, 3 mg= 1 tab(s), Oral, qHS, PRN Merrem metoprolol succinate 25 mg oral TABLET extended release, 12.5 mg= 0.5 tab(s), Oral, BID Miralax Powder Packet, 17 gram(s)= 15 mL, Oral, qDay, PRN NS 1,000 mL, 1000 mL, Intravenous Percocet 325/5, 1 tab(s), Oral, q4h, PRN prednisoLONE (as base) 15 mg/5 mL oral SYRUP, 10 mg= 3.33 mL, Oral, BID Protonix, 20 mg= 1 tab(s), Oral, qDayAC Tylenol, 650 mg= 2 tab(s), Oral, q4h, PRN Tylenol, 650 mg= 2 tab(s), Oral, q4h, PRN Zofran, 4 mg= 2 mL, IV Push, q4h, PRN Home aspirin 81 mg oral tablet, chewable, 81 mg= 1 tab(s), Oral, Daily bumetanide 1 mg oral tablet, 1 mg= 1 tab(s), Oral, Daily, 7 refills, Still taking, not as prescribed: takes as needed Lasix 40 mg oral tablet, 40 mg= 1 tab(s), Oral, qDay levothyroxine 150 mcg (0.15 mg)/5 mL oral solution, 150 mcg= 5 mL, Oral, qDay levothyroxine 88 mcg (0.088 mg) oral tablet, 88 mcg= 1 tab(s), Oral, qDay Lipitor 40 mg oral tablet, 40 mg= 1 tab(s), Oral, qDay metoprolol succinate 25 mg oral TABLET extended release, 12.5 mg= 0.5 tab(s), Oral, BID pantoprazole 20 mg oral enteric coated tablet, 20 mg= 1 tab(s), Oral, BIDAC Pradaxa 75 mg oral capsule, 75 mg= 1 cap(s), Oral, BID prednisoLONE (as sodium phosphate) 10 mg oral tablet, disintegrating, 10 mg= 1 tab(s), Oral, BID Protonix 20 mg oral enteric coated tablet, 20 mg= 1 tab(s), Oral, qDayAC Allergies Green dye (non-codified) (hives) Latex (hives) Red food dyes (hives) Tape (rash) multivitamin with iron (rash) penicillin (hives) Social History Alcohol Do you ever drink more than intended: No. Has anyone been hurt or at risk by your drinking: No., 06/28/2023 Tobacco Nicotine Use: 10 or more cigarettes (1/2 pack or more)/day in last 30 days. Type: Cigarettes. Started at age: 15 Years., 06/28/2023 Immunizations No qualifying data available. Digitally Signed by VEL SIMMS on 07/23/2023 08:[address] [id number] History and physical note [facility] History and Physical Date of Admission: patient presents on July 23, 2023 Chief complaint: chest pain and scrotal pain History of present illness: History is taken from talking with emergency room physician Dr. paola hernandez well as talking with the patient. Patient has a past medical history of morbid obesity, hyperlipidemia, Gerd, hypothyroidism, complete heart block status post recent pacemaker placement, rheumatoid arthritis on prednisone, COPD, chronic hypoxic respiratory failure on 4 L nasal cannula, BERT on CPAP, tobacco abuse, DVT, coronary artery disease status post stents. Patient was last discharged from here from the cardiology service on July 02, 2023 and during that admission he was here for heart block and had a pacemaker placed. Patient reports that he came in today as he is been having some tenderness around the site of the pacemaker. However his main concern was progressively worsening scrotal pain and swelling while on Bactrim. He denies fevers, chills or night sweats. The patient reports that he has chronic intermittent skin lesions and in the past occasionally they would need Lanced. He reports that over the last several weeks he is had progressively worsening scrotal pain and redness. He reports that he is had skin lesions of the scrotum in the past. Patient reports that his primary care physician put them on Bactrim which has been on for three months which is for prophylaxis and treatment of these skin lesions. Since presenting to the emergency room the patient has been afebrile, hemodynamically's blood pressure 182/86, 92% for liters nasal cannula. The following labs and imaging were personally reviewed WBC 19.0 hemoglobin 11.3 which is around his baseline urinalysis not concerning for infection CMP within normal limits high-sensitivity troponin 10.6 lipase 26 chest x-ray showed atelectasis ultrasound of the scrotum showed incidental right testicular appendix and left testicular cyst. Groin ultrasound showed findings concerning for abscess. EKG personally reviewed and interpreted showed sinus rhythm with no ST elevation or ST depression. In the emergency room the patient was given meropenem, clindamycin, vancomycin, fentanyl and Zofran. Past medical history: Tobacco use Implantation of cardiac pacemaker: 06/29/23 Family history: hypertension Social history: smokes a half pack of cigarettes a day Medications: Home Medications (11) Active, medications were not verified by pharmacy at the time of this dictation aspirin 81 mg oral tablet, chewable 81 mg = 1 tab(s), Oral, Daily bumetanide 1 mg oral tablet 1 mg = 1 tab(s), Oral, Daily Lasix 40 mg oral tablet 40 mg = 1 tab(s), Oral, qDay levothyroxine 150 mcg (0.15 mg)/5 mL oral solution 150 mcg = 5 mL, Oral, qDay levothyroxine 88 mcg (0.088 mg) oral tablet 88 mcg = 1 tab(s), Oral, qDay Lipitor 40 mg oral tablet 40 mg = 1 tab(s), Oral, qDay metoprolol succinate 25 mg oral TABLET extended release 12.5 mg = 0.5 tab(s), Oral, BID pantoprazole 20 mg oral enteric coated tablet 20 mg = 1 tab(s), Oral, BIDAC Pradaxa 75 mg oral capsule 75 mg = 1 cap(s), Oral, BID prednisoLONE (as sodium phosphate) 10 mg oral tablet, disintegrating 10 mg = 1 tab(s), Oral, BID Protonix 20 mg oral enteric coated tablet 20 mg = 1 tab(s), Oral, qDayAC Allergies: Latex (hives) multivitamin with iron (rash) penicillin (hives) Tape (rash) Review of systems: See HPI for pertinent positives and negatives. All other review of systems have been reviewed and they are negative. Vitals Signs(Last 24 hrs)__Last Charted Minimum Maximum Temp36.7(JUL 22 11:40)36.7(JUL 22 11:40)36.7(JUL 22 11:40) Heart RateH 105(JUL 22 20:51)64(JUL 22 16:11)H 105(JUL 22 20:51) Resp Rate20(JUL 22 20:51)18(JUL 22 14:50)20(JUL 22 11:40) SBPH 182(JUL 22 20:51)120(JUL 22 14:50)H 182(JUL 22 20:51) DBP86(JUL 22 20:51)70(JUL 22 14:50)86(JUL 22 20:51) Physical examination: HEENT: No Pallor, No Icterus Cardiac: RRR, No murmur Lungs: CTA, good air entry Abdomen: Soft Non tender Musculoskeletal: No joint pains or swelling Extremities: No edema, good pulses Neurological: Alert, no deficits Skin: scrotal pain and erythema Labs: WBC: 19 10^3/mcL High (07/22/23 12:00:00) RBC: 4.97 10^6/mcL (07/22/23 12:00:00) Hgb: 11.3 G/dL Low (07/22/23 12:00:00) Hct: 38.9 % Low (07/22/23 12:00:00) MCV: 78.2 fL Low (07/22/23 12:00:00) MCH: 22.7 pg Low (07/22/23 12:00:00) MCHC: 29 G/dL Low (07/22/23 12:00:00) RDW: 25.7 % High (07/22/23 12:00:00) Platelet: 287 10^3/mcL (07/22/23 12:00:00) MPV: 7.7 fL (07/22/23 12:00:00) Monocyte Distribution Width: 19.11 (07/22/23 12:00:00) Neutrophil %: 86.9 % High (07/22/23 12:00:00) Lymphocyte %: 7.9 % Low (07/22/23 12:00:00) Monocyte %: 4.5 % (07/22/23 12:00:00) Eosinophil %: 0.4 % (07/22/23 12:00:00) Basophil %: 0.3 % (07/22/23 12:00:00) Neutrophil, Absolute: 16.5 10^3/mcL High (07/22/23 12:00:00) Lymphocyte, Absolute: 1.5 10^3/mcL (07/22/23 12:00:00) Monocyte, Absolute: 0.9 10^3/mcL (07/22/23 12:00:00) Eosinophil, Absolute: 0.1 10^3/mcL (07/22/23 12:00:00) Basophil, Absolute: 0.1 10^3/mcL (07/22/23 12:00:00) Platelet Estimate: Adequate (07/22/23 12:00:00) Anisocytosis: 2+ (07/22/23 12:00:00) Poik: 1+ (07/22/23 12:00:00) Microcytosis: 2+ (07/22/23 12:00:00) Stomatocytes: 1+ (07/22/23 12:00:00) Toxic Gran: 1+ (07/22/23 12:00:00) UA Specimen Type: Clean Catch (07/22/23 22:44:00) UA Color: DARK YELLOW (07/22/23 22:44:00) UA Appear: Clear (07/22/23:44:00) UA Spec Grav: 1.025 (07/22/23 22:44:00) UA Glucose: Negative. (07/22/23 22:44:00) UA Bili: Negative. (07/22/23 22:44:00) UA Ketones: Trace (07/22/23:44:00) UA Blood: Negative. (07/22/23 22:44:00) UA pH: 7.0 (07/22/23 22:44:00) UA Protein: Negative.1 (07/22/23:44:00) UA Urobilinogen: 1.0 (07/22/23:44:00) UA Nitrite: Negative. (07/22/23 22:44:00) UA Leuk Est: Negative. (07/22/23:44:00) Glucose Level: 89 mg/dL (07/22/23 12:00:00) Sodium Level: 139 mEq/L (07/22/23 12:00:00) Potassium Level: 3.7 mEq/L (07/22/23 12:00:00) Chloride: 99 mEq/L (07/22/23 12:00:00) CO2: 33 mEq/L High (07/22/23 12:00:00) Electrolyte Balance: 7 mEq/L (07/22/23 12:00:00) BUN: 15 mg/dL (07/22/23 12:00:00) Creatinine Lvl (s): 0.98 mg/dL (07/22/23 12:00:00) BUN/Creatinine Ratio: 15.3 ratio (07/22/23 12:00:00) Calcium Lvl: 9.4 mg/dL (07/22/23 12:00:00) Total Protein: 7.4 G/dL (07/22/23 12:00:00) Albumin Level: 3.1 G/dL Low (07/22/23 12:00:00) Globulin: 4.3 G/dL High (07/22/23 12:00:00) A/G Ratio: 0.7 ratio Low (07/22/23 12:00:00) Bili Total: 0.6 mg/dL (07/22/23 12:00:00) Alk Phos: 140 U/L High (07/22/23 12:00:00) AST/SGOT: 13 U/L (07/22/23 12:00:00) ALT/SGPT: 14 U/L (07/22/23 12:00:00) GFR Non-: >60 (07/22/23 12:00:00) GFR : >60 (07/22/23 12:00:00) Lipase Level: 26 U/L (07/22/23 12:00:00) Troponin I High Sensitivity: 10.65 ng/L (07/22/23 14:19:00) Troponin I High Sensitivity: 11.1 ng/L (07/22/23 12:00:00) Urinalysis UA Specimen Type: Clean Catch (07/22/23 22:44:00) UA Color: DARK YELLOW (07/22/23 22:44:00) UA Appear: Clear (07/22/23 22:44:00) UA Spec Grav: 1.025 (07/22/23 22:44:00) UA Glucose: Negative. (07/22/23 22:44:00) UA Bili: Negative. (07/22/23 22:44:00) UA Ketones: Trace (07/22/23 22:44:00) UA Blood: Negative. (07/22/23 22:44:00) UA pH: 7.0 (07/22/23 22:44:00) UA Protein: Negative.1 (07/22/23 22:44:00) UA Urobilinogen: 1.0 (07/22/23 22:44:00) UA Nitrite: Negative. (07/22/23 22:44:00) UA Leuk Est: Negative. (07/22/23 22:44:00) Assessment and plan: Patient presents on July 23, 2023 with multiple complaints including scrotal pain as well as pain around the site of his recent pacemaker placement. Acute pain of the scrotum concerning for cellulitis with possible abscess. Per the patient he has had multiple skin infectious type lesions on different areas of his body. For this reason he has beenon Bactrim for the last three months. I will order blood cultures. Will check an ESR and CRP. I will continue the patient on vancomycin and meropenem. NPO with IV fluids in case of procedure. Will consult urology. Poorly controlled hypertension. Continue home medications. As needed hydralazine and clonidine. Chronic hypoxic respiratory failure on 4 L nasal cannula. Stable Chronic anemia. Stable Leukocytosis. Of note the patient does have a chronic leukocytosis and he is also on chronic steroids. Chronic anemia. Stable Morbid obesity Hyperlipidemia. continue statin Gerd. Continue Protonix Hypothyroidism. Continue Synthroid Complete heart block status post recent pacemaker placement. The site of the pacemaker does not appear infected. Rheumatoid arthritis on chronic steroids Chronic COPD not in exacerbation BERT on CPAP Tobacco abuse Chronic DVT. I will hold his Pradaxa in case of procedure Coronary artery disease. Will hold his aspirin in case of procedure Prophylaxis SCDs Code status full code Digitally Signed by LES RINCON MD on 07/23/2023 01:[address] [id number] Note ORIGINAL EXAMINATION: LIMITED ULTRASOUND EXAMINATION OF THE RIGHT GROIN109/22/2022 10:27 pm TECHNIQUE: Focused grayscale and color Doppler evaluation of the right groin region of interest. COMPARISON: None HISTORY: ORDERING SYSTEM PROVIDED HISTORY: Reason for Exam: RIGHT sided groin pain, swelling or pseudoaneurysm FINDINGS: This exam is significantly limited secondary to patient body habitus. Within the patient's reported area of interest there is heterogeneous echogenicity lesion with dimensions 4.6 x 3.6 x 3.1 cm with apparent tract to the surface of the skin. There is adjacent vascularity to this lesion. There is some degree of overlying skin thickening. IMPRESSION: Subcutaneous fluid collection with tract extending to the surface of the skin where there is skin thickening is most compatible with an abscess. Direct visualization is recommended for confirmation of this finding. Note adjacent vascularity is seen. Clinical follow-up is recommended as warranted. I have personally reviewed the images of this examination and agree with the resident's findings and interpretation. Interpreted by: Les Dwyer MD Preliminary Report By: Param Dsouza Electronically signed By Les Dwyer MD Dictated Date: 07/22/2023 10:35:50 PM Prelim Date: 07/22/2023 10:44:29 PM Sign Date: 07/22/2023 10:53:35 PM Ordering Provider: [facility]12-20-2023 Note ORIGINAL EXAMINATION: ULTRASOUND OF THE SCROTUM/TESTICLES WITH COLOR DOPPLER FLOW LGLXZOUILZ60/20/2023 10:21 pm TECHNIQUE: Duplex ultrasound using B-mode/groves scaled imaging, Doppler spectral analysis and color flow Doppler was obtained of the testicles. COMPARISON: None HISTORY: ORDERING SYSTEM PROVIDED HISTORY: Reason for Exam: testicular pain, swelling or torsion FINDINGS: TESTICLES: 3 mm right testicular appendix. 7 mm left testicular cyst. Color Doppler flow is seen in both testicles in a symmetric fashion. Spectral waveform analysis of the testicles shows arterial and venous waveforms in both testicles. Right testicle: 4.3 x 3.0 x 3.1 cm Left testicle: 4.1 x 3.1 x 2.7 cm EPIDIDYMIDES: The epididymides bilaterally are normal without evidence of focal mass or hyperemia on Doppler imaging. SCROTUM: Small right greater than left hydroceles. OTHER: Echogenic soft tissue present within the right inguinal canal likely represents a fat containing inguinal hernia. IMPRESSION: No evidence of acute testicular torsion. Small bilateral hydroceles. Incidentally noted right testicular appendix and left testicular cyst. I have personally reviewed the images of this examination and agree with the resident's findings and interpretation. Interpreted by: Les Dwyer MD Preliminary Report By: Param Dsouza Electronically signed By Les Dwyer MD Dictated Date: 07/22/2023 10:25:53 PM Prelim Date: 07/22/2023 10:35:00 PM Sign Date: 07/22/2023 10:46:07 PM Ordering Provider: [facility]12-20-2023 Note ORIGINAL EXAMINATION: ONE XRAY VIEW OF THE CHEST07/22/2023 12:01 pm COMPARISON: 06/29/2023 HISTORY: ORDERING SYSTEM PROVIDED HISTORY: Reason for Exam: pain FINDINGS: Cardiomegaly noted. Pacer device seen from a left chest wall approach. Bandlike parenchymal opacities are most prevalent in the central and lower lungs. A dense nodule projects over the right upper thorax measuring 1.1 cm. No pleural fluid or pneumothorax. No aggressive osseous lesions identified. IMPRESSION: 1. Bandlike parenchymal opacities in the central and lower lungs could relate to atelectasis, scarring or other pathology. There is also a dense but not clearly calcified right lung nodule. For all of these findings, CT characterization advised Interpreted by: Bebeto Urbina MD Preliminary Report By: Bebeto Urbina MD Electronically signed By Bebeto Urbina MD Dictated Date: 07/22/2023 12:11:07 PM Prelim Date: 07/22/2023 12:12:40 PM Sign Date: 07/22/2023 12:12:40 PM Ordering Provider: [facility]12-20-2023 NoteSINUS RHYTHM RBBB AND LAFB EKG interpretation is noted and agreed to in [employer]. The interpretation of this patient's EKG contributed directly to the care and management of this patient. Electronic Signature: DG ANDRADE 07/22/2023 22:45:22[facility] 12-01-2023 Note. MICRO - Microbiology PROCEDURE: Blood Culture (bacterial) [*1] SOURCE: Blood BODY SITE: COLLECTED DATE/TIME: 06/28/2023 06:50 EST RECEIVED DATE/TIME: 06/28/2023 06:57 EST START DATE/TIME: 06/28/2023 06:57 EST FREE TEXT SOURCE: FINAL REPORTS Final Report [] Verified Date/Time/Personnel: 07/03/2023 06:59 EST Blood Culture: No Growth at 5 days. PRELIMINARY REPORTS Preliminary Report [] Verified Date/Time/Personnel: 06/28/2023 07:59 EST Culture has been received in lab and is no growth to date. Routine cultures are held for 5 days. Performing Locations *1: This test was performed at: [facility], [address] [place] [address], [id number] , [facility] ([place])07-02-2023 Discharge summary Date of Service 07/02/23 Discharge Diagnosis Atrioventricular block, complete (I44.2 - ICD-10-CM) Acute and chronic respiratory failure with hypercapnia (J96.22 - ICD-10-CM) Chronic respiratory failure with hypoxia (J96.11 - ICD-10-CM) Acidosis, unspecified (E87.20 - ICD-10-CM) Chronic embolism and thrombosis of right popliteal vein (I82.531 - ICD-10-CM) Body mass index [BMI] 50.0-59.9, adult (Z68.43 - ICD-10-CM) Morbid (severe) obesity with alveolar hypoventilation (E66.2 - ICD-10-CM) Type 2 diabetes mellitus with diabetic nephropathy (E11.21 - ICD-10-CM) Presence of coronary angioplasty implant and graft (Z95.5 - ICD-10-CM) Hypothyroidism, unspecified (E03.9 - ICD-10-CM) Rheumatoid arthritis, unspecified (M06.9 - ICD-10-CM) Nicotine dependence, cigarettes, uncomplicated (F17.210 - ICD-10-CM) Personal history of other venous thrombosis and embolism (Z86.718 - ICD-10-CM) Obstructive sleep apnea (adult) (pediatric) (G47.33 - ICD-10-CM) Other specified abnormal findings of blood chemistry (R79.89 - ICD-10-CM) Syncope and collapse (R55 - ICD-10-CM) Atherosclerotic heart disease of [place] coronary artery without angina pectoris (I25.10 - ICD-10-CM) Cor pulmonale (chronic) (I27.81 - ICD-10-CM) Chronic obstructive pulmonary disease, unspecified (J44.9 - ICD-10-CM) Tobacco use (Z72.0 - ICD-10-CM) Hospital Course This is a 52-year-old male with a past medical history significant for diabetes mellitus type 2, chronic hypoxic respiratory failure secondary to COPD on 4 L via nasal cannula, CAD status post RCA stent [2 to 3 years ago, on aspirin, Pradaxa and Brilinta], hypothyroidism, rheumatoid arthritis [not on biologic], tobacco abuse disorder [85-zdtv-avru smoking history], prior DVT and BERT [noncompliantwith use of CPAP] who presented to the emergency department [facility]opal [facility]. When he arrived via EMS, his heart rate was in the 30s and he was given atropine with improvement of heart rate to the 50s. EKG showed complete AV block with ventricular escape rhythm at 32 bpm. Chest x-ray showed patchy opacity at the peripheral of the left lung and right upper lung peripheral opacity as well. Patient was diuresed with lasix 40 IV BID with improvement of his fluid overloaded state EP consulted and patient underwent PPM placement and tolerated procedure well. HR was tachycardic following procedure so he was resumed on home toprol xl. LE doppler did reveal chronic right popliteal DVT. He has no recent stents placed within past yr. Given significant bruising on his skin despite stable HGB and no indication for triple therapy, brillinta discontinued. Patient advised to continue asa and pradaxa. Patient evaluated by pulmonology for OHS. He has been advised to use BIPAP qHS 20/05 Attempted to arrange transport with oxygen therapy on DC which patient declined. HHC being arranged. patient also reprts he has a home RN stable for DC and eager to return home TTE 1. Left ventricle: The cavity size is normal. Wall thickness is mildly increased. The estimated ejection fraction is 60-65%. Regional wall motion abnormalities cannot be excluded due to poor acoustic windows. 2. Right atrium: The estimated right atrial pressure is 3 mm Hg Allergies Latex (hives) Tape (rash) multivitamin with iron (rash) penicillin (hives) Consults Consult to Physician - Ordered -- 06/28/23 4:33:00 EST, LOU ABDULLAHI MD, Routine, complete AV block Consult to Physician (Physician Consult) - Ordered -- 06/28/23 18:08:00 EST, HOSPITALISTGEOVANNI (For Consultation Assignment Only NO other Orders), Routine, Esr>130, evaluate for rheumatoid flare Consult to Physician - Ordered -- 06/29/23 18:35:00 EST, JUAREZ HEREDIA MD, Routine, bert and copd Consult to Tobacco Cessation Program (Smoking Cessation Program Consult) - Ordered -- 06/28/23 5:21:00 EST, CAD Physical Exam Vitals and Measurements T: 36.8 C (Oral) TMIN: 36.5 C (Oral) TMAX: 36.8 C (Oral) HR: 87(Monitored) RR: 18 BP: 118/76 SpO2: 93% Weight Current Weight Dosing Weight: 196.2 kg (06/30/23) Current Weight: 195.8 kg (07/01/23) Dosing Weight: 194.1 kg (06/28/23) Current Weight: 202.4 kg (06/29/23) General Appearance: Appears to be mild respiratory distress Head: Atraumatic and normocephalic EENT: EOMI, PERRLA Neck: Difficult to assess JVD given body habitus Cardiac: S1 and S2 normal. Lungs: Poor inspiratory effort Abdomen: Soft, nontender, nondistended. Musculoskeletal: Full range of motion upper and lower extremities. Extremities: + lower extremity nonpitting edema bilaterally likely related to chronic lymphedema. Neurological: CN II through XII grossly intact. Code Status No qualifying data available. Admission Date 06/28/23 Discharge Date 07/02/23 Medications New Prescription bumetanide (bumetanide 1 mg oral tablet)1 tab(s) by mouth every day. Refills: 7. Changed aspirin (aspirin 81 mg oral tablet, chewable)1 tab(s) by mouth every day. Refills: 0. atorvastatin (Lipitor 40 mg oral tablet)1 tab(s) by mouth once a day. Refills: 0. dabigatran (Pradaxa 75 mg oral capsule)1 cap by mouth two (2) times a day. Refills: 0. metoprolol (metoprolol succinate 25 mg oral TABLET extended release)0.5 tab(s) by mouth two (2) times a day. Do not crush or chew (controlled release). Refills: 0. pantoprazole (Protonix 20 mg oral enteric coated tablet)1 tab(s) by mouth once a day before a meal.Refills: 0. Unchanged levothyroxine (levothyroxine 150 mcg (0.15 mg)/5 mL oral solution)5 Milliliter by mouth once a day.on an empty stomach. levothyroxine (levothyroxine 88 mcg (0.088 mg) oral tablet)1 tab(s) by mouth once a day. prednisoLONE (prednisoLONE (as sodium phosphate) 10 mg oral tablet, disintegrating)1 tab(s) by mouth two (2) times a day. Discontinued ticagrelor (Brilinta (ticagrelor) 90 mg oral tablet)1 tab(s) by mouth two (2) times a day. Follow Up Follow Up with LOU ABDULLAHI MD When 09/28/2023 10:00 AM EST Why: This is your hospital follow up in the Device Clinic. Where: [address] [facility] [address] [place] [address]- [phone] Follow Up with LOU ABDULLAHI MD When 07/14/2023 10:00 AM EST Why: This is your incision check in the Device Clinic. Where: [address] [facility] [address] [place] [address]- [phone] Follow Up with KRISTY AZUL MD When Within 1-2 days Where: [address] [facility] [address] [facility] [place] [address] [phone] Follow Up with VINCENT CALVERT MD When Within 1-2 days Where: [address] [facility] [address] [place] [address] [phone] Follow Up with Post home RN DC follow up visit scheduled for two visits # 1 visit scheduled 12/ between 8a-12p visit # 2 scheduled for 07/10 between 8a-12p When Follow Up with DILLON NORRIS DO When Why: THIS OFFICE WILL CALL THE PATIENT TO SCHEDULE A HOSPITAL FOLLOW UP APPOINTMENT. Where: [address] [facility] [address]- Follow Up Appointments No qualifying data available. Follow Up Labs/Studies Discharge Labs No Follow-up Labs Discharge Studies No Follow-up Studies Discharge Diet Discharge Diet - Ordered -- Type of Diet: Regular, 07/02/23 11:27:00 EST Discharge Activity Discharge Activity - Ordered -- Lifting Restricted less than 5 pounds, 07/02/23 11:27:00 EST Condition on Discharge fair Discharge Disposition home Information Provided To patient Digitally Signed by KAILEE DONOVAN MD on 07/02/2023 08:[id number] Discharge instructions Patient Education 07/02/2023 14:30:27 3- Pacemaker New Device (no ICD) 09/2019(CUSTOM) PACEMAKER INSERTION Discharge Instructions WOUND CARE DO NOT place any ointments, creams, powders or lotions on the incision. Call your pacemaker doctor s office immediately if you have: oIncreased redness oDrainage from the incision oIncreased pain, warmth or swelling on or around the site oFever or chills that you cannot connect with a cold or flu If an Aquacel Ag surgical dressing has been applied: oYou may take a shower as long as the dressing is sealed well to your skin. oYou may remove the bandage in 7 days: To do this, press down on your skin with one hand and carefully lift an edge of the bandage with your other hand. Stretch the dressing to break the adhesive seal and gently pull it off. oIf the bandage becomes loose or falls off in less than 5 days, you will not be able to take any showers or baths. ?You must keep the incision dry for the first 5 days after your procedure. ?DO NOT clean the incision with any soap, water, peroxide or alcohol. ?Leave it dry and uncovered for 5 days, then you may shower using soap and water. oWear loose fitting clothes over the incisional site to avoid irritation until it is healed. If you do not have a dressing: oDO NOT shower or get the incision wet for 5 days. oDO NOT clean the incision with any soap, water, peroxide or alcohol. oLeave it dry and uncovered for 5 days, then you may shower using soap and water. oWear loose fitting clothes over the incisional site to avoid irritation until it is healed. MEDICATIONS Take antibiotics as prescribed by your physician (if prescribed) Take medications as directed until prescription is finished Avoid alcohol while taking medications You may take Tylenol (acetaminophen) for incisional pain or discomfort. ACTIVITY RESTRICTIONS DO NOT lift anything heavier than 5 lbs with the arm on the side of the Pacemaker for one month. DO NOT raise the arm on the side of the Pacemaker above shoulder level for one month. You may resume normal driving after a day unless otherwise restricted. Driving may cause soreness at the incision site. FOLLOW UP Follow up with the Pacemaker center for routine evaluation of your device. Your appointment to haveyour device checked and to see the doctor in 12-14 weeks has been scheduled and is listed above in the follow up section of these discharge instructions. Device Monitor Now that you have a permanent pacemaker, ICD, and/or loop recorder (all called a device ) it shouldbe checked regularly. This is done with a monitor that sends information from the device to your boiler coverer helper (heart doctor) office. How will I get my monitor? The monitor will be shipped to your home within 6 weeks after you are discharged. But, if you are given the monitor before discharge, please take it home. You may get other equipment (such as a bloodpressure cuff and weight scale) shipped as well. There is no charge for this equipment. How does the monitor work? The monitor needs to be set up close to where you sleep. The monitor will automatically pick up operator heart signals and send the information to your doctor. Or you may be asked to push a button to send theinformation. What are the next steps? You will have an appointment with the nurse at the Device Clinic in about 2 weeks and the nurse will check your device (you will not see your doctor). The nurses will talk to you about the monitor atthat time. When you get the monitor, there will be clear instructions with how to set it up. Please call the Device Clinic if you have questions. [facility]: [phone] Ask for the Device Clinic or armenta-in extension [phone] when prompted. Device Clinic Location: [facility] (not the physician office building). Enter the [facility] and take the elevators to the 2nd floor. Take the feliz to the slight left labeled [facility] . If you are interested, you may find information about your device on the web, including videos thatwill help you understand and set up your monitor. The monitor you will get is based on the company that manufactured your device. Your device card will tell you the business unit controller. Using the search box: Angle: Latrebecca Communicator quick start oPatient Help: Medtronic: MyCareLink quick start oPatient Help: [employer] ([place]): [email or web address] quick start oPatient Help: Other important information about your device: Always carry your device card with you. Your device may set off a metal detector. Be sure you have your device card with you if you plan togo through any area, such as an airport that may have a metal detector. Before having any test or procedure, make sure you tell the healthcare professional that you have an implanted device. Follow Up Care 06/27/2023 23:36:00 With:KRISTY AZUL MD Address: [address] [facility] [place] [address]- [phone] When:1-2 days With:VINCENT CALVERT MD Address: [address] [facility] [address] [place] [address] [phone] When:1-2 days With:Post home RN DC follow up visit scheduled for two visits # 1 visit scheduled 07/06 between 8a-12p visit # 2 scheduled for 07/10 between 8a-12p Address:Unknown When: Unknown With:DILLON NORRIS DO Address: [address] [place] [phone]- When: Unknown Comments:THIS OFFICE WILL CALL THE PATIENT TO SCHEDULE A HOSPITAL FOLLOW UP APPOINTMENT. With:LOU ABDULLAHI MD Address: [address] [place] [address] [address] [place], [place] [id number]- [phone] When:07/14/2023 10:00:00 Comments:This is your incision check in the Device Clinic. With:LOU ABDULLAHI MD Address: [address] [place] [address] [address] [place] [address]- [phone] When:09/28/2023 10:00:00 Comments:This is your hospital follow up in the Device Clinic. [facility] 11-30-2023 Note Discharge Instructions Thank you for allowing [facility] to assist you with your healthcare needs. The following is importantdischarge information regarding your hospital visit. Your Care Team DILLON NORRIS DO What to do next Scheduled Follow-Up Appointments Appointment Type When Where Contact InformationCV Incision Check 07/14/2023 10:00 AM EST [facility] CV Office Procedure ICD 09/28/2023 10:00 AM EST [facility] CV Remote Procedure HM 12/30/2023 01:15 PM EDT [facility] Follow Up Appointments Follow Up with LOU ABDULLAHI MD When 09/28/2023 10:00 AM EST Why: This is your hospital follow up in the Device Clinic. Where: [address] [place] [address] [address] [place] [address]- [phone] Follow Up with LOU ABDULLAHI MD When 07/14/2023 10:00 AM EST Why: This is your incision check in the Device Clinic. Where: [address] [facility] [address] [place] [address]- [phone] Follow Up with Post home RN DC follow up visit scheduled for two visits # 1 visit scheduled 07/06 between 8a-12p visit # 2 scheduled for 07/10 between 8a-12p When Follow Up with DILLON NORRIS DO When Why: THIS OFFICE WILL CALL THE PATIENT TO SCHEDULE A HOSPITAL FOLLOW UP APPOINTMENT. Where: [address] [facility] [address]- The Following Activity and Diet Have Been Ordered for You Discharge Activity - Discontinued -- Lifting Restricted less than 5 pounds, 07/01/23 16:04:00 EST Discharge Activity - Ordered -- Lifting Restricted less than 5 pounds, 07/02/23 11:27:00 EST Discharge Diet - Ordered -- Type of Diet: Regular, 07/02/23 11:27:00 EST The Following Equipment Has Been Ordered for You Discharge Home Equipment Discharge Bilevel - Ordered -- IPAP: 10, Auto EPAP 18, Biflex/Exp. Release 1, 12 Length of Need, 07/02/23 11:27:00 EST The Following Treatments Have Been Ordered for You Discharge Labs No qualifying data available. Discharge Radiology No qualifying data available. Other Therapies No qualifying data available. Post Acute Orders No qualifying data available. Someone Will Contact You Regarding These Home Health Referrals No home referrals have been ordered for you. No one will call you. Allergies Latex (hives) Tape (rash) multivitamin with iron (rash) penicillin (hives) Medications Please ask your primary doctor or pharmacist before taking any other medication not listed, including over the counter drugs, herbal medications, vitamins and or supplements as they may interact withyour home medications. What How Much When Instructions Last Dose Changed aspirin (aspirin 81 mg oral tablet, chewable) 1 tab(s) by mouth Every day Pickup at [facility] Changed atorvastatin (Lipitor 40 mg oral tablet) 1 tab(s) by mouth Once a day Pickup at [facility] Changed dabigatran (Pradaxa 75 mg oral capsule) 1 cap by mouth Two (2) times a day Pickup at [facility] Changed metoprolol (metoprolol succinate 25 mg oral TABLET extended release) 0.5 tab(s) by mouth Two (2) times a day Do not crush or chew (controlled release) Pickup at [facility] Changed pantoprazole (pantoprazole 20 mg oral enteric coated tablet) 1 tab(s) by mouth Two (2) times daily before meals Changed pantoprazole (Protonix 20 mg oral enteric coated tablet) 1 tab(s) by mouth Once a day before a meal Pickup at [facility] Unchanged furosemide (Lasix 40 mg oral tablet) 1 tab(s) by mouth Once a day Pickup at [facility] Unchanged levothyroxine (levothyroxine 150 mcg (0.15 mg)/ 5 mL oral solution) 5 Milliliter by mouth Once a day on an empty stomach Unchanged levothyroxine (levothyroxine 88 mcg (0.088 mg) oral tablet) 1 tab(s) by mouth Once a day Unchanged prednisoLONE (prednisoLONE (as sodium phosphate) 10 mg oral tablet, disintegrating) 1 tab(s) by mouth Two (2) times a day Pharmacy Information [facility]: [address] [place] [address] [address] [place], [place] [phone] What How Much When Comments Stop Taking ticagrelor (Brilinta (ticagrelor) 90 mg oral tablet) 1 tab(s) by mouth Two (2) times a day Please take this list to your next doctor s visit. Bring all medications you take, including over the counter medications, herbals and other supplements with you to your doctor s visit. Patients and families are reminded to discard old lists and to update any records with all medication providers or retail pharmacies. Education Materials PACEMAKER INSERTION Discharge Instructions WOUND CARE DO NOT place any ointments, creams, powders or lotions on the incision. Call your pacemaker doctor s office immediately if you have: o Increased redness o Drainage from the incision o Increased pain, warmth or swelling on or around the site o Fever or chills that you cannot connect with a cold or flu If an Aquacel Ag surgical dressing has been applied: o You may take a shower as long as the dressing is sealed well to your skin. o You may remove the bandage in 7 days: To do this, press down on your skin with one hand and carefully lift an edge of the bandage with your other hand. Stretch the dressing to break the adhesive sealand gently pull it off. o If the bandage becomes loose or falls off in less than 5 days, you will not be able to take any showers or baths. ? You must keep the incision dry for the first 5 days after your procedure. ? DO NOT clean the incision with any soap, water, peroxide or alcohol. ? Leave it dry and uncovered for 5 days, then you may shower using soap and water. o Wear loose fitting clothes over the incisional site to avoid irritation until it is healed. If you do not have a dressing: o DO NOT shower or get the incision wet for 5 days. o DO NOT clean the incision with any soap, water, peroxide or alcohol. o Leave it dry and uncovered for 5 days, then you may shower using soap and water. o Wear loose fitting clothes over the incisional site to avoid irritation until it is healed. MEDICATIONS Take antibiotics as prescribed by your physician (if prescribed) Take medications as directed until prescription is finished Avoid alcohol while taking medications You may take Tylenol (acetaminophen) for incisional pain or discomfort. ACTIVITY RESTRICTIONS DO NOT lift anything heavier than 5 lbs with the arm on the side of the Pacemaker for one month. DO NOT raise the arm on the side of the Pacemaker above shoulder level for one month. You may resume normal driving after a day unless otherwise restricted. Driving may cause soreness at the incision site. FOLLOW UP Follow up with the Pacemaker center for routine evaluation of your device. Your appointment to haveyour device checked and to see the doctor in 12-14 weeks has been scheduled and is listed above in the follow up section of these discharge instructions. Device Monitor Now that you have a permanent pacemaker, ICD, and/or loop recorder (all called a device ) it shouldbe checked regularly. This is done with a monitor that sends information from the device to your boiler coverer helper (heart doctor) office. How will I get my monitor? The monitor will be shipped to your home within 6 weeks after you are discharged. But, if you are given the monitor before discharge, please take it home. You may get other equipment (such as a bloodpressure cuff and weight scale) shipped as well. There is no charge for this equipment. How does the monitor work? The monitor needs to be set up close to where you sleep. The monitor will automatically pick up operator heart signals and send the information to your doctor. Or you may be asked to push a button to send theinformation. What are the next steps? You will have an appointment with the nurse at the Device Clinic in about 2 weeks and the nurse will check your device (you will not see your doctor). The nurses will talk to you about the monitor atthat time. When you get the monitor, there will be clear instructions with how to set it up. Please call the Device Clinic if you have questions. [facility]: [phone] Ask for the Device Clinic or armenta-in extension [phone] or [phone] when prompted. Device Clinic Location: [facility] (not the physician office building). Enter the [facility] and take the elevators to the 2nd floor. Take the feliz to the slight left labeled [facility] . If you are interested, you may find information about your device on the web, including videos thatwill help you understand and set up your monitor. The monitor you will get is based on the company that manufactured your device. Your device card will tell you the business unit controller. Using the search box: [employer]Page [employer]: Lattitude Communicator quick start o Patient Help: Medtronic: MyCareLink quick start o Patient Help: [employer] ([place]): [email or web address] quick start o Patient Help: Other important information about your device: Always carry your device card with you. Your device may set off a metal detector. Be sure you have your device card with you if you plan togo through any area, such as an airport that may have a metal detector. Before having any test or procedure, make sure you tell the healthcare professional that you have an implanted device. Additional Information VACCINATE! IT SAVES LIVES! Members of the community who have not yet received the COVID-19 vaccine and would like to receive it can visit one of [facility] vaccine clinics. There are many vaccine clinic locations within the [facility]. For locations and available times, please visit [email or web address] It is important to note that some COVID mobile vaccine clinics are held outdoors and may be canceled in rainy or stormy conditions. To learn more about pediatric vaccinations (ages 5-11), we invite you to visit the [facility] webpage. [email or web address]://www.[email or web address]/pages/[email or web address]-Ezyrb-[email or web address]-[email or web address] stions.htmlTo learn more about the COVID-19 vaccine, we invite you to visit the CDC website for a list of frequently asked questions.https://www.cdc.gov/coronavirus/2019-ncov/vaccines/faq.html [facility] Patient Portal Access Instructions: Stay connected with your healthcare team and access your personal medical information anytime with the [facility] Patient Portal. Please follow the directions below to create your [facility] account: 1.Access the email account you provided upon registration to the hospital/physician office.2.Look for an invitation email from [facility].3.Open the email and access the invitation link: AcceptInvitation to [facility].4.Fill in the required abdalla to create your account. To access your account, visit [employer]. Click the blue button labeled Access Patient Portal and then log in with the username and password that you created in the steps above. You will be able to view your test results, lab results, a summary of your visits, upcoming appointments and more. There is also a convenient messaging option where you can send secure messages to your p rovider. In addition, you will have the ability to download any documents or summaries to your computer and/or send the information securely to a physician. Remember that your healthcare information is confidential, so carefully consider who you will allowto register on the [facility] Patient Portal for access to your information. You can also access the [facility] Patient Portal on the [facility] leandro. Simply click on Patient Portal and then log into your account. If you would like to receive a full copy of your medical records, please contact the [facility] Medical Records Department by calling [phone], Thursday through Thursday between 8 a.m. and 4:30 p.m. HOW TO SAFELY DISPOSE OF PRESCRIPTION MEDICATIONS Please use one of the following methods to safely dispose of your unused medications. 1.Use a drug disposal kit: the drug disposal pouch allows you to safely discard your old and unuseddrugs. Ask your nurse to give you one when you are discharged.2.Visit a local take-back location: Many local pharmacies and police departments have programs that collect old and unwanted prescriptiondrugs. Call your local pharmacy or go to [email or web address] to find one close to you.3.Make use of household items: Use cat litter or old coffee grounds to dispose medications if other options arenot available. Mix your drugs with these household products, seal them in an airtight container andthrow it into the garbage. Call [facility]: [phone] to be sure your drugs can be disposed of in this way. Some medicines may require a different approach.4.Never flush your medications down the toilet. IF YOU HAVE BEEN PRESCRIBED AN OPIOID FOR PAIN If you have been prescribed an opioid (such as hydrocodone, oxycodone or morphine), it is critical to understand the possible side effects and risks of opioid pain medications. Even when taken as directed, opioids can have several side effects including: Tolerance, meaning you might need to take more of a medication for the same pain relief. Nausea, vomiting and/or constipation. Sleepiness, dizziness, dry mouth, confusion, depression or itching. Physical dependence, meaning you have withdrawal symptoms when a medication is stopped, can develop within a few days. KNOW YOUR RESPONSIBILITIES It is important to know exactly how much and how often to take the opioid pain medications you are prescribed. Never take opioids in higher amounts or more often than prescribed. Do not combine opioids with alcohol or other drugs that cause drowsiness, such as benzodiazepines, also known as benzos, including diazepam and alprazolam, muscle relaxants or sleep aids. Never sell or share prescription opioids. This is illegal. Store opioids in a secure place and out of reach of others (including children, family, friends and visitors). The last page of this document has been signed and retained as a CHART COPY. Signatures Patient Education Materials 3- Pacemaker New Device (no ICD) 09/2019(CUSTOM) Medication Leaflets My discharge plan and instructions have been reviewed and explained to me and I,DARWIN CAYLA Waters understand my current condition and have read and understand these discharge instructions. I have received a written copy of the plan/instructions. If I have questions, I am aware that I should contact my doctor. Patient/Commissary Agent Signature: Date/Time: Relationship to Patient: Witness Name/Signature: [id number] Pulmonary Progress note Date of Service 07/02/2023 Subjective ABG this morning shows pH 7.41 with pCO2 of 58 and a pO2 of 79 on BiPAP 20/05 overnight. He is on 4to 5 L nasal cannula throughout the day. Objective Vitals and Measurements T: 36.8 C (Oral) TMIN: 36.4 C (Oral) TMAX: 36.8 C (Oral) HR: 73 RR: 18 BP: 118/76 SpO2: 97% Intake and Output 7AM Yesterday to 7AM Today Intake and Output (Last 24 hours) Intake Oral Intake 100.00 Administration Information 207.98 Supplement Intake 0.00 Output Urine Voided 1450.00 Total Summary Total Intake 307.98 Total Output 1450.00 Fluid Balance -1142.02 Physical Exam General-no acute distress, alert HEENT-normocephalic, atraumatic, extraocular movements intact Pulmonary-diminished, no wheeze Cardiovascular-regular, no appreciable murmurs, gallops or rubs Abdomen-morbidly obese, bowel sounds positive Extremities-edema noted, no cyanosis or clubbing Neurologic-nonfocal Weight Current Weight Dosing Weight: 196.2 kg (06/30/23) Current Weight: 195.8 kg (07/01/23) Dosing Weight: 194.1 kg (06/28/23) Current Weight: 202.4 kg (06/29/23) Medications Medications (33) Active Scheduled: (17) albuterol - ipratropium 2.5 mg-0.5 mg/3 mL Inhal Milka UD 3 mL, Inhalation, QIDRT aspirin 81 mg Chewable 81 mg 1 tab(s), Oral, Daily atorvastatin 20 mg tablet 20 mg 1 tab(s), Oral, Daily budesonide 0.5 mg/2 mL Susp UD 0.5 mg 2 mL, Inhalation, BIDRT dabigatran 150 mg capsule 150 mg 1 cap(s), Oral, BID diclofenac topical 1% Gel 50 g 4 gram(s), Topical, QID furosemide 40 mg/4 mL vial 40 mg 4 mL, IV Push, BID levothyroxine 150 mcg tablet 150 mcg 1 tab(s), Oral, qDay lidocaine patch REMOVAL 1 EA, Miscellaneous, q24h lidocaine topical 4% patch 1 patch(es), Transdermal, q24h metoprolol succinate 25 mg ER tablet 12.5 mg 0.5 tab(s), Oral, BID miconazole topical 2% Powder 1 leandro, Topical, BID Nicoderm patch REMOVAL 1 EA, Miscellaneous, q24h nicotine 21 mg/24 hr ER patch 21 mg 1 patch(es), Transdermal, q24h No metformin for 48 hrs post contrast 1 EA, Miscellaneous, Unscheduled pantoprazole 20 mg EC tablet 20 mg 1 tab(s), Oral, BIDAC predniSONE 10 mg tablet 10 mg 1 tab(s), Oral, BID Continuous: (0) PRN: (16) acetaminophen 325 mg Tablet 650 mg 2 tab(s), Oral, q4h acetaminophen-HYDROcodone 325-5 mg tablet 1 tab(s), Oral, q4h albuterol - ipratropium 2.5 mg-0.5 mg/3 mL Inhal Milka UD 3 mL, Inhalation, q2hRT atropine 0.4 mg/ml 1 mL vial 0.4 mg 1 mL, IV Push, AsDirected dextrose 50% Solution Disp syringe 50 mL 12.5 gram(s) 25 mL, IV Push, AsDirected hydralazine 20 mg/mL (1mL) vial 5 mg 0.25 mL, IV Push, q6h magnesium sulfate 4 gram(s)/100mL PMX 4 g 100 mL, IV Piggyback, AsDirected magnesium sulfate 50% (500mg/mL) 6 g 12 mL, IV Piggyback, AsDirected magnesium sulfate PMX 2 g 50 mL, IV Piggyback, AsDirected melatonin 3 mg tablet 3 mg 1 tab(s), Oral, qHS morphine 2 mg/mL 1 mL syringe 2 mg 1 mL, IV Push, q6hr polyethylene glycol 3350 - UD packet 17 gram(s) 15 mL, Oral, qDay potassium chloride (PMX) 20 mEq/100 mL 20 mEq 100 mL, IV Piggyback, AsDirected potassium chloride 20 mEq ER tablet 20 mEq 1 tab(s), Oral, AsDirected potassium chloride 20 mEq ER tablet 40 mEq 2 tab(s), Oral, AsDirected potassium chloride 20 mEq ER tablet 40 mEq 2 tab(s), Oral, AsDirected Lab Results 07/02 05:00 WBC: 13.3 H Hgb: 8.5 L Hct: 29.5 L Platelet: 304 Neutrophil %: 79.9 H Glucose Level: 159 H Sodium Level: 140 Potassium Level: 4.6 BUN: 29.0 H Creatinine Lvl (s): 0.90 07/01 11:24 WBC: 15.4 H Hgb: 8.3 L Hct: 28.5 L Platelet: 298 Neutrophil %: 84.8 H Glucose Level: 243 H Sodium Level: 137 Potassium Level: 4.6 Potassium Level: 4.6 BUN: 31.0 H Creatinine Lvl (s): 0.88 07/01 04:43 WBC: 16.2 H Hgb: 8.3 L Hct: 28.4 L Platelet: 298 Neutrophil %: 85.4 H Glucose Level: 199 H Sodium Level: 137 Potassium Level: 5.1 H BUN: 31.0 H Creatinine Lvl (s): 0.93 EKG EKG - Discontinued -- 07/01/23 21:26:00 EST Assessment/Plan 1. Acute on chronic mixed respiratory failure at large due to obesity hypoventilation syndrome, possible component of left-sided decompensated failure 2. Obesity hypoventilation syndrome complicated with chronic respiratory failure and cor pulmonale. 3. Obstructive sleep apnea, suboptimal compliance with BiPAP. 4. Severe obesity. 5. Syncope due to high AV block status post pacemaker placement. 6. History of chronic obstructive pulmonary disease, continue to smoke 4 cigarettes a day has has history of 50 pack years. 7. History of coronary status post stenting, ejection fraction 45-50%, stent in the RCA. 8. History of rheumatoid arthritis. Plan: 1. Continue BiPAP / with Lasix to achieve euvolemia, can be discharged on settings of / when ready. Apparently he has AVAPS at home so we will attempt to adjust accordingly 2. ABG this morning looks well compensated with a pH of 7.41/58/79 3. Extremely important for this patient to uses BiPAP at home until we see him in the office to review compliance. 4. Agree with current Lasix therapy. 5. Continue bronchodilators. 6. As an outpatient need to need patient to have a pulmonary function test and also CAT scan of thechest for evaluation of the chronic changes in the right upper lobe density 1.3 cm 7. Strong recommendation against cigarette smoking. Time Spent 15 minutes Digitally Signed by JUAREZ HEREDIA MD on 07/02/2023 12:[address] [id number] Cardiology Progress note Date of Service 07/01/23 Subjective No acute complaints Objective Vitals and Measurements T: 36.4 C (Oral) TMIN: 36.1 C (Axillary) TMAX: 36.5 C (Oral) HR: 67(Apical) RR: 20 BP: 120/62 SpO2:96% WT: 195.8 kg Intake and Output 7AM Yesterday to 7AM Today Intake and Output (Last 24 hours) Intake Oral Intake 660.00 Administration Information 587.47 Supplement Intake 0.00 Output Urine Voided 2085.00 Stool Count 0.00 Urine Count 1.00 Total Summary Total Intake 1247.47 Total Output 2085.00 Fluid Balance -837.53 Physical Exam General Appearance: Appears to be mild respiratory distress Head: Atraumatic and normocephalic EENT: EOMI, PERRLA Neck: Difficult to assess JVD given body habitus Cardiac: S1 and S2 normal. Lungs: Poor inspiratory effort Abdomen: Soft, nontender, nondistended. Musculoskeletal: Full range of motion upper and lower extremities. Extremities: + lower extremity nonpitting edema bilaterally likely related to chronic lymphedema. Neurological: CN II through XII grossly intact. Weight Current Weight Dosing Weight: 196.2 kg (06/30/23) Current Weight: 195.8 kg (07/01/23) Dosing Weight: 194.1 kg (06/28/23) Current Weight: 202.4 kg (06/29/23) Medications Medications (34) Active Scheduled: (18) albuterol - ipratropium 2.5 mg-0.5 mg/3 mL Inhal Milka UD 3 mL, Inhalation, QIDRT aspirin 81 mg Chewable 81 mg 1 tab(s), Oral, Daily atorvastatin 20 mg tablet 20 mg 1 tab(s), Oral, Daily budesonide 0.5 mg/2 mL Susp UD 0.5 mg 2 mL, Inhalation, BIDRT dabigatran 150 mg capsule 150 mg 1 cap(s), Oral, BID diclofenac topical 1% Gel 50 g 4 gram(s), Topical, QID furosemide 40 mg/4 mL vial 40 mg 4 mL, IV Push, BID iron sucrose 300 mg 15 mL, IV Piggyback, qDay levothyroxine 150 mcg tablet 150 mcg 1 tab(s), Oral, qDay lidocaine patch REMOVAL 1 EA, Miscellaneous, q24h lidocaine topical 4% patch 1 patch(es), Transdermal, q24h metoprolol succinate 25 mg ER tablet 12.5 mg 0.5 tab(s), Oral, BID miconazole topical 2% Powder 1 leandro, Topical, BID Nicoderm patch REMOVAL 1 EA, Miscellaneous, q24h nicotine 21 mg/24 hr ER patch 21 mg 1 patch(es), Transdermal, q24h No metformin for 48 hrs post contrast 1 EA, Miscellaneous, Unscheduled pantoprazole 20 mg EC tablet 20 mg 1 tab(s), Oral, BIDAC predniSONE 10 mg tablet 10 mg 1 tab(s), Oral, BID Continuous: (0) PRN: (16) acetaminophen 325 mg Tablet 650 mg 2 tab(s), Oral, q4h acetaminophen-HYDROcodone 325-5 mg tablet 1 tab(s), Oral, q4h albuterol - ipratropium 2.5 mg-0.5 mg/3 mL Inhal Milka UD 3 mL, Inhalation, q2hRT atropine 0.4 mg/ml 1 mL vial 0.4 mg 1 mL, IV Push, AsDirected dextrose 50% Solution Disp syringe 50 mL 12.5 gram(s) 25 mL, IV Push, AsDirected hydralazine 20 mg/mL (1mL) vial 5 mg 0.25 mL, IV Push, q6h magnesium sulfate 4 gram(s)/100mL PMX 4 g 100 mL, IV Piggyback, AsDirected magnesium sulfate 50% (500mg/mL) 6 g 12 mL, IV Piggyback, AsDirected magnesium sulfate PMX 2 g 50 mL, IV Piggyback, AsDirected melatonin 3 mg tablet 3 mg 1 tab(s), Oral, qHS morphine 2 mg/mL 1 mL syringe 2 mg 1 mL, IV Push, q6hr polyethylene glycol 3350 - UD packet 17 gram(s) 15 mL, Oral, qDay potassium chloride (PMX) 20 mEq/100 mL 20 mEq 100 mL, IV Piggyback, AsDirected potassium chloride 20 mEq ER tablet 20 mEq 1 tab(s), Oral, AsDirected potassium chloride 20 mEq ER tablet 40 mEq 2 tab(s), Oral, AsDirected potassium chloride 20 mEq ER tablet 40 mEq 2 tab(s), Oral, AsDirected Lab Results 07/01 11:24 WBC: 15.4 H Hgb: 8.3 L Hct: 28.5 L Platelet: 298 Neutrophil %: 84.8 H Glucose Level: 243 H Sodium Level: 137 Potassium Level: 4.6 Potassium Level: 4.6 BUN: 31.0 H Creatinine Lvl (s): 0.88 07/01 04:43 WBC: 16.2 H Hgb: 8.3 L Hct: 28.4 L Platelet: 298 Neutrophil %: 85.4 H Glucose Level: 199 H Sodium Level: 137 Potassium Level: 5.1 H BUN: 31.0 H Creatinine Lvl (s): 0.93 06/30 19:59 Potassium Level: 4.3 06/30 09:42 Glucose Level: 209 H Sodium Level: 131 L Potassium Level: 5.0 BUN: 28.0 H Creatinine Lvl (s): 0.90 EKG No qualifying data available. Assessment/Plan Acute on chronic hypoxic hypercapnic respiratory failure High degree AV block Syncope Troponin elevation, resolved likely type II MS Lactic acidosis, stable Leukocytosis, likely reactive Chronic right popliteal vein DVT Microcytic anemia Concern for rheumatoid arthritis flare History of diabetes mellitus type 2, chronic hypoxic respiratory failure, COPD, CAD, hypothyroidism, rheumatoid arthritis, tobacco abuse disorder, BERT Plan: Acute on chronic hypoxic hypercapnic respiratory failure Pulmonology was consulted. We appreciate their assistance in the care of this patient. Strongly encouraged use of BIPAP 18/10 qHS given concern for OHS. We will continue Lasix 40 IV twice daily for HFpEF/cor pulmonale. Will continue DuoNebs 4 times daily and budesonide twice daily given history of COPD CXR 1.3cm right upper loabe nodular opacity. Patient refused inpatient CT scan. Given smoking history, patient should undergo low dose CT scan as outpatient High degree AV block It is very likely that patient had significantly increased vagal tone induced by pain from fall which may have contributed to his high degree AV block in the setting of patient to be transition from heparin by weight to underlying suspected baseline conduction delay. This degree of AV blockade fromhis stable dose of metoprolol for several years is unlikely. Underwent DDD pacemaker device placement on 06/29/2023 and tolerated procedure well. Ok to give aspirin. no strenuous lifting/pushing/pulling with the left arm for 4 weeks. Patient should remove Aquacel dressing in 1 week. He is to followup with the device clinic -- 14 day incision check, 90 day device check. We appreciate the assistance of electrophysiology in the care of this patient. Chronic right popliteal vein DVT and sinus tachycardia Patient can be transitioned from HBW to dabigatran Concern for rheumatoid arthritis flare ESR is greater than 130 and CRP greater than 1.9. RF elevated. 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 Patient reports that he only takes prednisone as outpatient for control of his rheumatoid arthritis. Microcytic anemia Venofer started.Patient will need to be on long-term aspirin and Pradaxa [given history of chronic DVT]. He should undergo colonoscopy plus or minus EGD as outpatient Anticipate discharge in the next 24 to 48 hours Digitally Signed by KAILEE DONOVAN MD on 07/01/2023 06:30 PM Digitally Signed by KENYATTA CABALLERO MD [id number] Pulmonary Consult note Date of Service 07/01/2023 Reason for Consultation Respiratory failure Referring Physician Cardiology History of Present Illness 62 years old male with history of severe obesity, diabetes mellitus, coronary artery disease statuspost RCA stenting 2 to 3 years ago, neck obstructive pulm disease with chronic respite failures on 4 L of oxygen nasal cannula, obstructive sleep apnea with suboptimal compliance with BiPAP therapy, r heumatoid arthritis not on any biological agent however patient on prednisone. Admitted to [facility] on 06/28/2023 with syncopal episode was found to have high-grade AV block for which pacemaker was placed, during this hospitalization patient was was found to abnormal ABGs as he was little short of breath, ABGs revealed pH 7.269, PO2 67, BiPAP was attempted follow-up ABGs on 06/29 reveals a pH 7.33 and PCO2 57 so that pulm service were asked for evaluation. Patient has no cough, no wheezing no purulent expectoration no chest pain no pleuritic chest pain, chest x-ray reveals chronic bilateral changes with right upper lobe density measuring 1.3 cm. During my evaluation this morning patient alert, follows commands, moves all 4 extremities, no respite distress and on 5 L of oxygen per nasal cannula with that O2 saturation 95%. Review of Systems Extensive review of system was performed, pertinent finding were described in the history of present illness otherwise all negative, would like to add that patient has chronic lower extremity edema Physical Exam Vitals and Measurements T: 36.5 C (Oral) TMIN: 36.5 C (Oral) TMAX: 36.8 C (Oral) HR: 65(Monitored) RR: 20 BP: 106/60 SpO2: 94% WT: 195.8 kg Weight Current Weight Dosing Weight: 196.2 kg (06/30/23) Current Weight: 195.8 kg (07/01/23) Dosing Weight: 194.1 kg (06/28/23) Current Weight: 202.4 kg (06/29/23) General patient is alert does not appear to be in any distress. Severe obesity Skin: Warm and dry no obvious rash or ulcerations. HEENT: The head is normal cephalic, pupils are equal, sclerae clear, mucous membranes are moist, mouth and throat without any exudate. Crowded oropharynx Neck: No JVD or adenopathy. Cardiovascular: Normal heart sounds, regular rhythm no murmurs. Chest and lung exam: Normal excursion with symmetric chest wall movement. Chest wall is nontender. Lungs are clear, breath sounds equal there is no rales or rhonchi's no wheezing. Abdomen: No obvious visible abnormalities, soft, nontender, no organomegaly, no rigidity or tenderness. Neurologic: Alert moves all 4 extremities, no focal motor deficits present. Musculoskeletal: No clubbing, cyanosis or edema. Lymphatic: No evidence of lymphadenopathy or tenderness. Lower extremity: Bilateral chronic stasis and edema Lab Results 07/01 04:43 WBC: 16.2 H Hgb: 8.3 L Hct: 28.4 L Platelet: 298 Neutrophil %: 85.4 H Glucose Level: 199 H Sodium Level: 137 Potassium Level: 5.1 H BUN: 31.0 H Creatinine Lvl (s): 0.93 06/30 19:59 Potassium Level: 4.3 06/30 09:42 Glucose Level: 209 H Sodium Level: 131 L Potassium Level: 5.0 BUN: 28.0 H Creatinine Lvl (s): 0.90 06/30 05:59 WBC: 14.4 H Hgb: 8.8 L Hct: 31.4 L Platelet: 328 Neutrophil %: 90.2 H Glucose Level: 239 H Sodium Level: 133 L Potassium Level: 5.1 H BUN: 25.0 H Creatinine Lvl (s): 0.92 Assessment/Plan 1. Acute on chronic mixed respiratory failures at large due to obesity hypoventilation syndrome, possible component of left-sided decompensated failures. 2. Obesity hypoventilation syndrome complicated with chronic respite failures and cor pulmonale. 3. Obstructive sleep apnea, suboptimal compliance with BiPAP. 4. Severe obesity. #5 syncope due to high AV block status post pacemaker placement. 6. History of chronic obstructive pulm disease, continue to smoke 4 cigarettes a day has has history of 50 pack years. 7. History of coronary status post stenting, ejection fraction 45-50%, stent in the RCA. 8. History of rheumatoid arthritis. Plan: Once again the main etiology of this acute and chronic mixed respite failures with his obesity hypoventilation room, explained to patient at length the importance of this therapy and typically oxygenduring the day, BiPAP at night and of course Lasix when he is in decompensated is not decompensatedfor him of cor pulmonale. 2. We will start BiPAP 18/10 cmH2O throughout the night and will obtain ABGs in the morning. 3. Extremely important for this patient to uses BiPAP at home until we see him in the office to review compliance. 4. Agree with current Lasix therapy. 5. Continue bronchodilators. 6. As an outpatient need to need patient to have a pulmonary function test and also CAT scan of thechest for evaluation of the chronic changes in the right upper lobe density 1.3 cm, I often tell the CAT scan of the chest during this hospitalization and a decline. 7. Strong recommendation against cigarette smoking. Problem List/Past Medical History Ongoing No qualifying data Historical No qualifying data Procedure/Surgical History Implantation of cardiac pacemaker: 06/29/23 Medications Inpatient aspirin 81 mg oral tablet, chewable, 81 mg= 1 tab(s), Oral, Daily atropine 0.4 mg/mL injectable solution ( PACU ), 0.4 mg= 1 mL, IV Push, AsDirected, PRN budesonide 0.5 mg/2 mL inhalation suspension, 0.5 mg= 2 mL, Inhalation, BIDRT Dextrose 50% IV Push, 12.5 gram(s)= 25 mL, IV Push, AsDirected, PRN diclofenac 1% topical gel, 4 gram(s), Topical, QID DuoNeb, 3 mL, Inhalation, QIDRT DuoNeb, 3 mL, Inhalation, q2hRT, PRN Heparin for IV 25,000 unit(s) [12.88 unit(s)/kg/hr] + Dextrose 5% Premix Diluent 250 mL Heparin HBW Bolus 5000 units/mL, 8750 unit(s)= 1.75 mL, 70 unit(s)/kg, IV Push, q6h, PRN Heparin HBW Bolus 5000 units/mL, 7764 unit(s)= 1.55 mL, 40 unit(s)/kg, IV Push, q6h, PRN hydrALAZINE, 5 mg= 0.25 mL, IV Push, q6h, PRN Lasix, 40 mg= 4 mL, IV Push, BID levothyroxine, 150 mcg= 1 tab(s), Oral, qDay lidocaine (lidocaine Patch REMOVAL), 1 EA, Miscellaneous, q24h lidocaine 4% topical patch, 1 patch(es), Transdermal, q24h Lipitor, 20 mg= 1 tab(s), Oral, Daily magnesium sulfate for IV bolus, 2 gram(s)= 50 mL, IV Piggyback, AsDirected, PRN magnesium sulfate for IV bolus, 4 gram(s)= 100 mL, IV Piggyback, AsDirected, PRN magnesium sulfate for IV bolus melatonin, 3 mg= 1 tab(s), Oral, qHS, PRN metOLazone 2.5 mg oral tablet, 2.5 mg= 1 tab(s), Oral, Once metoprolol succinate 25 mg oral TABLET extended release, 12.5 mg= 0.5 tab(s), Oral, BID miconazole 2% topical powder, 1 leandro, Topical, BID Miralax Powder Packet, 17 gram(s)= 15 mL, Oral, qDay, PRN morphine, 2 mg= 1 mL, IV Push, q6hr, PRN Nicoderm C-Q 21 mg/24 hr transdermal film, extended release, 21 mg= 1 patch(es), Transdermal, q24h nicotine (Nicoderm Patch REMOVAL), 1 EA, Miscellaneous, q24h NO METFORMIN (Glucophage) X 48hrs-patient has received contrast, 1 EA, Miscellaneous, Unscheduled [place] 325- 5 mg oral tablet, 1 tab(s), Oral, q4h, PRN pantoprazole, 20 mg= 1 tab(s), Oral, BIDAC potassium chloride, 20 mEq= 1 tab(s), Oral, AsDirected, PRN potassium chloride, 40 mEq= 2 tab(s), Oral, AsDirected, PRN potassium chloride, 40 mEq= 2 tab(s), Oral, AsDirected, PRN potassium chloride bolus, 20 mEq= 100 mL, IV Piggyback, AsDirected, PRN predniSONE, 10 mg= 1 tab(s), Oral, BID Tylenol, 650 mg= 2 tab(s), Oral, q4h, PRN Venofer Home aspirin 81 mg oral tablet, chewable, 81 mg= 1 tab(s), Oral, Daily Lasix 40 mg oral tablet, 40 mg= 1 tab(s), Oral, qDay levothyroxine 150 mcg (0.15 mg)/5 mL oral solution, 150 mcg= 5 mL, Oral, qDay levothyroxine 88 mcg (0.088 mg) oral tablet, 88 mcg= 1 tab(s), Oral, qDay Lipitor 40 mg oral tablet, 40 mg= 1 tab(s), Oral, qDay metoprolol succinate 25 mg oral TABLET extended release, 12.5 mg= 0.5 tab(s), Oral, BID pantoprazole 20 mg oral enteric coated tablet, 20 mg= 1 tab(s), Oral, BIDAC Pradaxa 75 mg oral capsule, 75 mg= 1 cap(s), Oral, BID prednisoLONE (as sodium phosphate) 10 mg oral tablet, disintegrating, 10 mg= 1 tab(s), Oral, BID Protonix 20 mg oral enteric coated tablet, 20 mg= 1 tab(s), Oral, qDayAC Allergies Latex (hives) Tape (rash) multivitamin with iron (rash) penicillin (hives) Social History Alcohol Do you ever drink more than intended: No. Has anyone been hurt or at risk by your drinking: No., 06/28/2023 Tobacco Nicotine Use: 10 or more cigarettes (1/2 pack or more)/day in last 30 days. Type: Cigarettes. Started at age: 15 Years., 06/28/2023 Immunizations No qualifying data available. Digitally Signed by KRISTY AZUL MD on 07/01/2023 10:[address] [id number] Respiratory therapy Hospital Progress note Respiratory Therapy Evaluation Entered On: 07/01/2023 10:01 EST Performed On: 07/01/2023 10:01 EST by KATIE Raza Respiratory Therapy Evaluation RT Assessment [Frequency/Schedule] : npo changes KATIE Raza - 07/01/2023 10:05 EST Chest X-Ray : Infiltrates, atelectasis, pleural effusion Breath Sounds (RT) : Decreased bilaterally Respiratory Pattern (RT) : Regular RR=12-20 Cough (RT) : Weak, non-productive Respiratory Therapy Evaluation Score : 11 Level of Activity : Ambulatory with assistance Mental Status : Alert, oriented KATIE Raza - 07/01/2023 10:03 EST Pulmonary Status : Pulmonary disorder KATIE Raza - 07/01/2023 10:01 EST Surgical Status : General surgery KATIE Raza - 07/01/2023 10:03 EST Digitally Signed by KATIE Raza on 07/01/2023 10:[address] [id number] Cardiology Progress note Date of Service 06/30/2023 Chief Complaint This is a 52-year-old male with a past medical history significant for diabetes mellitus type 2, chronic hypoxic respiratory failure secondary to COPD on 4 L via nasal cannula, CAD status post RCA stent [2 to 3 years ago, on aspirin, Pradaxa and Brilinta], hypothyroidism, rheumatoid arthritis [not on biologic], tobacco abuse disorder [[id number] smoking history], prior DVT and BERT [noncompliantwith use of CPAP] who presented to the emergency department [facility]. When he arrived via EMS, his heart rate was in the 30s and he was given atropine with improvement of heart rate to the 50s. EKG showed complete AV block with ventricular escape rhythm at 32 bpm. Chest x-ray showed patchy opacity at the peripheral of the left lung and right upper lung peripheral opacity as well. TTE 1. Left ventricle: The cavity size is normal. Wall thickness is mildly increased. The estimated ejection fraction is 60-65%. Regional wall motion abnormalities cannot be excluded due to poor acoustic windows. 2. Right atrium: The estimated right atrial pressure is 3 mm Hg Subjective No acute complaints. Reports some mild tenderness around PPM insertion site Objective Vitals and Measurements T: 36.8 C (Oral) TMIN: 36.4 C (Oral) TMAX: 36.8 C (Oral) HR: 83(Monitored) RR: 18 BP: 138/36 SpO2: 94% WT: 196.2 kg Intake and Output 7AM Yesterday to 7AM Today Intake and Output (Last 24 hours) Intake Oral Intake 840.00 Supplement Intake 0.00 Output Urine Voided 1100.00 Total Summary Total Intake 840.00 Total Output 1100.00 Fluid Balance -260.00 Physical Exam General Appearance: Appears to be mild respiratory distress Head: Atraumatic and normocephalic EENT: EOMI, PERRLA Neck: Difficult to assess JVD given body habitus Cardiac: S1 and S2 normal. Lungs: Poor inspiratory effort Abdomen: Soft, nontender, nondistended. Musculoskeletal: Full range of motion upper and lower extremities. Extremities: + lower extremity nonpitting edema bilaterally likely related to chronic lymphedema. Neurological: CN II through XII grossly intact. Weight Current Weight Dosing Weight: 196.2 kg (06/30/23) Current Weight: 202.4 kg (06/29/23) Dosing Weight: 194.1 kg (06/28/23) Medications Medications (34) Active Scheduled: (15) albuterol - ipratropium 2.5 mg-0.5 mg/3 mL Inhal Milka UD 3 mL, Inhalation, QIDRT aspirin 81 mg Chewable 81 mg 1 tab(s), Oral, Daily atorvastatin 20 mg tablet 20 mg 1 tab(s), Oral, Daily budesonide 0.5 mg/2 mL Susp UD 0.5 mg 2 mL, Inhalation, BIDRT diclofenac topical 1% Gel 50 g 4 gram(s), Topical, QID furosemide 40 mg/4 mL vial 40 mg 4 mL, IV Push, BID iron sucrose 300 mg 15 mL, IV Piggyback, qDay levothyroxine 150 mcg tablet 150 mcg 1 tab(s), Oral, qDay metoprolol succinate 25 mg ER tablet 12.5 mg 0.5 tab(s), Oral, BID miconazole topical 2% Powder 1 leandro, Topical, BID Nicoderm patch REMOVAL 1 EA, Miscellaneous, q24h nicotine 21 mg/24 hr ER patch 21 mg 1 patch(es), Transdermal, q24h No metformin for 48 hrs post contrast 1 EA, Miscellaneous, Unscheduled pantoprazole 20 mg EC tablet 20 mg 1 tab(s), Oral, BIDAC predniSONE 10 mg tablet 10 mg 1 tab(s), Oral, BID Continuous: (1) heparin 25,000 unit(s) [12.88 unit(s)/kg/hr] + Dextrose 5% Premix Diluent 250 mL 250 mL, Intravenous, 25 mL/hr PRN: (18) acetaminophen 325 mg Tablet 650 mg 2 tab(s), Oral, q4h acetaminophen-HYDROcodone 325-5 mg tablet 1 tab(s), Oral, q4h albuterol - ipratropium 2.5 mg-0.5 mg/3 mL Inhal Milka UD 3 mL, Inhalation, q4hRT atropine 0.4 mg/ml 1 mL vial 0.4 mg 1 mL, IV Push, AsDirected dextrose 50% Solution Disp syringe 50 mL 12.5 gram(s) 25 mL, IV Push, AsDirected heparin 5,000 units/mL (1 mL) vial 8,750 unit(s) 1.75 mL, IV Push, q6h heparin 5,000 units/mL (1 mL) vial 7,764 unit(s) 1.55 mL, IV Push, q6h hydralazine 20 mg/mL (1mL) vial 5 mg 0.25 mL, IV Push, q6h magnesium sulfate 4 gram(s)/100mL PMX 4 g 100 mL, IV Piggyback, AsDirected magnesium sulfate 50% (500mg/mL) 6 g 12 mL, IV Piggyback, AsDirected magnesium sulfate PMX 2 g 50 mL, IV Piggyback, AsDirected melatonin 3 mg tablet 3 mg 1 tab(s), Oral, qHS morphine 2 mg/mL 1 mL syringe 2 mg 1 mL, IV Push, q6hr polyethylene glycol 3350 - UD packet 17 gram(s) 15 mL, Oral, qDay potassium chloride (PMX) 20 mEq/100 mL 20 mEq 100 mL, IV Piggyback, AsDirected potassium chloride 20 mEq ER tablet 20 mEq 1 tab(s), Oral, AsDirected potassium chloride 20 mEq ER tablet 40 mEq 2 tab(s), Oral, AsDirected potassium chloride 20 mEq ER tablet 40 mEq 2 tab(s), Oral, AsDirected Lab Results 06/30 09:42 Glucose Level: 209 H Sodium Level: 131 L Potassium Level: 5.0 BUN: 28.0 H Creatinine Lvl (s): 0.90 06/30 05:59 WBC: 14.4 H Hgb: 8.8 L Hct: 31.4 L Platelet: 328 Neutrophil %: 90.2 H Glucose Level: 239 H Sodium Level: 133 L Potassium Level: 5.1 H BUN: 25.0 H Creatinine Lvl (s): 0.92 06/29 15:06 WBC: 15.5 H Hgb: 9.7 L Hct: 33.4 L Platelet: 373 Neutrophil %: 95.5 H Glucose Level: 172 H Sodium Level: 135 L Potassium Level: 5.0 BUN: 25.0 H Creatinine Lvl (s): 1.00 EKG Electrocardiogram - Completed -- 06/29/23 17:03:00 EST Assessment/Plan Acute on chronic hypoxic hypercapnic respiratory failure High degree AV block Syncope Troponin elevation, resolved likely type II MS Lactic acidosis, stable Leukocytosis, likely reactive Chronic right popliteal vein DVT Microcytic anemia Concern for rheumatoid arthritis flare History of diabetes mellitus type 2, chronic hypoxic respiratory failure, COPD, CAD, hypothyroidism, rheumatoid arthritis, tobacco abuse disorder, BERT Plan: Acute on chronic hypoxic hypercapnic respiratory failure Patient was assessed following pacemaker placement and did appear significantly short of breath as such patient was placed on 7 L high flow nasal cannula due to desaturation And evidence of bilateralpleural edema on chest x-ray. Patient also to be placed on BiPAP for 1 hour due to respiratory acidosis which is now improved. Since then patient has been refusing use of BiPAP due to worsening anxiety. Will start Lasix 40 IV twice daily given that renal function has improved. Will continue DuoNebs4 times daily and budesonide twice daily. Given smoking history, patient should undergo low dose CT scan as outpatient High degree AV block It is very likely that patient had significantly increased vagal tone induced by pain from fall which may have contributed to his high degree AV block in the setting of patient to be transition from heparin by weight to underlying suspected baseline conduction delay. This degree of AV blockade fromhis stable dose of metoprolol for several years is unlikely. Underwent DDD pacemaker device placement on 06/29/2023 and tolerated procedure well. Hold heparin/NOACs for at least 12 to 24 hours. Ok togive aspirin. no strenuous lifting/pushing/pulling with the left arm for 4 weeks. Patient should remove Aquacel dressing in 1 week. He is to follow up with the device clinic -- 14 day incision check,90 day device check. We appreciate the assistance of electrophysiology in the care of this patient. Chronic right popliteal vein DVT and sinus tachycardia Patient can be transitioned from the provided dabigatran Concern for rheumatoid arthritis flare ESR is greater than 130 and CRP greater than 1.9. 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 Patient reports that he only takes prednisone as outpatient for control of his rheumatoid arthritis. Microcytic anemia Venofer started.Patient will need to be on long-term aspirin and Pradaxa [given history of chronic DVT]. He should undergo colonoscopy plus or minus EGD as outpatient Anticipate discharge in the next 24 to 48 hours Digitally Signed by KAILEE DONOVAN MD on 06/30/2023 07:44 PM Digitally Signed by KENYATTA CABALLERO MD [id number] Note Date of Service 06/30/23 Chief Complaint pain Subjective Patient is a 52-year-old male with past medical history significant for diabetes mellitus type 2, chronic respiratory failure/COPD on 4 L via [place], CAD s/p stenting on aspirin, Pradaxa, and Brilinta, hypothyroidism, DVT, BERT non- compliant with CPAP, and RA on Prednisone. Presented to [place] ER with c omplaints of lightheadedness, dizziness, and diaphoresis. Believes to have had a syncopal episode at home. Found to be in third-degree heart block at [place], transferred [facility] for definitive treatment. Pacemaker was placed 06/29. Hospitalist team consulted for RA management. Patient reports he has not been able to tolerate methotrexate, Plaquenil, or biologics and is treated with Prednisone 10 mg BID. Patient seen resting in bed in no acute distress. Reports his RA pain is well controlled with the Prednisone 10 mg BID and does not feel the need for increasing his dose at this time. Does admit to some chest pain related to pacemaker placement. Denies any increased shortness of breath, abdominal pain, nausea, or vomiting. Objective Vitals and Measurements T: 36.8 C (Oral) TMIN: 36.4 C (Oral) TMAX: 36.9 C (Oral) HR: 69 RR: 18 BP: 148/59 SpO2: 96% WT: 196.2 kg Intake and Output 7AM Yesterday to 7AM Today Intake and Output (Last 24 hours) Intake Oral Intake 1080.00 Supplement Intake 0.00 Output Urine Voided 1400.00 Total Summary Total Intake 1080.00 Total Output 1400.00 Fluid Balance -320.00 Physical Exam Physical Exam General: No acute distress. Alert and Appropriate Skin: No rash. Warm, Dry, Intact. left subclavian Aquacel intact. HEENT: Head is normocephalic and atraumatic. No lesions. Pupils equal in size. Extraocular movements within normal limits. Nose: No septal deviation. Mouth: Oropharynx mucosa is without lesion. Neck: Supple. No lymphadenopathy, thyromegaly noted. Lungs: Bilaterally diminished breath sounds with no crepitation or wheeze. Unlabored Cardiovascular: Heart is regular rhythm, S1S2, No extra-audible heart tones Abdomen: Abdomen is soft, nontender. Rounded/obese. Bowel sounds positive all four quadrants. Extremities: No clubbing, cyanosis. +1 BLE edema. Peripheral pulses palpable. No calf tenderness. Adequate peripheral circulation. Neurological: The patient is awake, oriented to time, people and place. Following simple commands, moving all extremities. Weight Current Weight Dosing Weight: 196.2 kg (06/30/23) Current Weight: 202.4 kg (06/29/23) Dosing Weight: 194.1 kg (06/28/23) Medications Medications (34) Active Scheduled: (15) albuterol - ipratropium 2.5 mg-0.5 mg/3 mL Inhal Milka UD 3 mL, Inhalation, QIDRT aspirin 81 mg Chewable 81 mg 1 tab(s), Oral, Daily atorvastatin 20 mg tablet 20 mg 1 tab(s), Oral, Daily budesonide 0.5 mg/2 mL Susp UD 0.5 mg 2 mL, Inhalation, BIDRT diclofenac topical 1% Gel 50 g 4 gram(s), Topical, QID furosemide 40 mg/4 mL vial 40 mg 4 mL, IV Push, BID iron sucrose 300 mg 15 mL, IV Piggyback, qDay levothyroxine 150 mcg tablet 150 mcg 1 tab(s), Oral, qDay metoprolol succinate 25 mg ER tablet 12.5 mg 0.5 tab(s), Oral, BID miconazole topical 2% Powder 1 leandro, Topical, BID Nicoderm patch REMOVAL 1 EA, Miscellaneous, q24h nicotine 21 mg/24 hr ER patch 21 mg 1 patch(es), Transdermal, q24h No metformin for 48 hrs post contrast 1 EA, Miscellaneous, Unscheduled pantoprazole 20 mg EC tablet 20 mg 1 tab(s), Oral, BIDAC predniSONE 10 mg tablet 10 mg 1 tab(s), Oral, BID Continuous: (1) heparin 25,000 unit(s) [12.88 unit(s)/kg/hr] + Dextrose 5% Premix Diluent 250 mL 250 mL, Intravenous, 25 mL/hr PRN: (18) acetaminophen 325 mg Tablet 650 mg 2 tab(s), Oral, q4h acetaminophen-HYDROcodone 325-5 mg tablet 1 tab(s), Oral, q4h albuterol - ipratropium 2.5 mg-0.5 mg/3 mL Inhal Milka UD 3 mL, Inhalation, q4hRT atropine 0.4 mg/ml 1 mL vial 0.4 mg 1 mL, IV Push, AsDirected dextrose 50% Solution Disp syringe 50 mL 12.5 gram(s) 25 mL, IV Push, AsDirected heparin 5,000 units/mL (1 mL) vial 8,750 unit(s) 1.75 mL, IV Push, q6h heparin 5,000 units/mL (1 mL) vial 7,764 unit(s) 1.55 mL, IV Push, q6h hydralazine 20 mg/mL (1mL) vial 5 mg 0.25 mL, IV Push, q6h magnesium sulfate 4 gram(s)/100mL PMX 4 g 100 mL, IV Piggyback, AsDirected magnesium sulfate 50% (500mg/mL) 6 g 12 mL, IV Piggyback, AsDirected magnesium sulfate PMX 2 g 50 mL, IV Piggyback, AsDirected melatonin 3 mg tablet 3 mg 1 tab(s), Oral, qHS morphine 2 mg/mL 1 mL syringe 2 mg 1 mL, IV Push, q6hr polyethylene glycol 3350 - UD packet 17 gram(s) 15 mL, Oral, qDay potassium chloride (PMX) 20 mEq/100 mL 20 mEq 100 mL, IV Piggyback, AsDirected potassium chloride 20 mEq ER tablet 20 mEq 1 tab(s), Oral, AsDirected potassium chloride 20 mEq ER tablet 40 mEq 2 tab(s), Oral, AsDirected potassium chloride 20 mEq ER tablet 40 mEq 2 tab(s), Oral, AsDirected Lab Results 06/30 09:42 Glucose Level: 209 H Sodium Level: 131 L Potassium Level: 5.0 BUN: 28.0 H Creatinine Lvl (s): 0.90 06/30 05:59 WBC: 14.4 H Hgb: 8.8 L Hct: 31.4 L Platelet: 328 Neutrophil %: 90.2 H Glucose Level: 239 H Sodium Level: 133 L Potassium Level: 5.1 H BUN: 25.0 H Creatinine Lvl (s): 0.92 06/29 15:06 WBC: 15.5 H Hgb: 9.7 L Hct: 33.4 L Platelet: 373 Neutrophil %: 95.5 H Glucose Level: 172 H Sodium Level: 135 L Potassium Level: 5.0 BUN: 25.0 H Creatinine Lvl (s): 1.00 EKG Electrocardiogram - Completed -- 06/29/23 17:03:00 EST Assessment/Plan Complete heart block - Patient had pacemaker placed 06/29. - Remains on metoprolol, aspirin, and heparin gtt per cardiology History of rheumatoid arthritis - Patient does not feel this is an RA flare - ESR >130, D dimer 6450, DORA negative - Patient remains on home Prednisone 10 mg BID and feels his pain is well controlled with this Acute on chronic hypoxic respiratory failure/COPD - Patient with increased oxygen demands from baseline, remains on 6L via [place] - Pulmonology consulted, will defer to them Tobacco use - Continue Nicotine patch -Smoking cessation encouraged. Hypothyroidism - Continue home Synthroid. Morbid Obesity- complicates all aspects of care. DVT prophylaxis: Heparin gtt At this time, there is nothing further to manage with patient's RA. Recommend follow up with PCP and [facility]. Hospitalist team will sign off at this time. Please reconsult for any further concerns. Plan of care discussed in depth with patient. Patient verbalizes understanding and is agreeable plan of care. Discussed with my collaborating physician Dr. Barajas. This dictation was performed using voice recognition software and may include grammatical and/or spelling errors Time Spent 28 minutes Digitally Signed by AYANNA SALINAS on 06/30/2023 04:[address] [id number] Note Date of Service 06/30/23 Chief Complaint pain Subjective Patient is a 52-year-old male with past medical history significant for diabetes mellitus type 2, chronic respiratory failure/COPD on 4 L via [place], CAD s/p stenting on aspirin, Pradaxa, and Brilinta, hypothyroidism, DVT, BERT non- compliant with CPAP, and RA on Prednisone. Presented to [place] ER with c omplaints of lightheadedness, dizziness, and diaphoresis. Believes to have had a syncopal episode at home. Found to be in third-degree heart block at [place], transferred to [facility] for definitive treatment. Pacemaker was placed 06/29. Hospitalist team consulted for RA management. Patient reports he has not been able to tolerate methotrexate, Plaquenil, or biologics and is treated with Prednisone 10 mg BID. Patient seen resting in bed in no acute distress. Reports his RA pain is well controlled with the Prednisone 10 mg BID and does not feel the need for increasing his dose at this time. Does admit to some chest pain related to pacemaker placement. Denies any increased shortness of breath, abdominal pain, nausea, or vomiting. Objective Vitals and Measurements T: 36.8 C (Oral) TMIN: 36.4 C (Oral) TMAX: 36.9 C (Oral) HR: 69 RR: 18 BP: 148/59 SpO2: 96% WT: 196.2 kg Intake and Output 7AM Yesterday to 7AM Today Intake and Output (Last 24 hours) Intake Oral Intake 1080.00 Supplement Intake 0.00 Output Urine Voided 1400.00 Total Summary Total Intake 1080.00 Total Output 1400.00 Fluid Balance -320.00 Physical Exam Physical Exam General: No acute distress. Alert and Appropriate Skin: No rash. Warm, Dry, Intact. left subclavian Aquacel intact. HEENT: Head is normocephalic and atraumatic. No lesions. Pupils equal in size. Extraocular movements within normal limits. Nose: No septal deviation. Mouth: Oropharynx mucosa is without lesion. Neck: Supple. No lymphadenopathy, thyromegaly noted. Lungs: Bilaterally diminished breath sounds with no crepitation or wheeze. Unlabored Cardiovascular: Heart is regular rhythm, S1S2, No extra-audible heart tones Abdomen: Abdomen is soft, nontender. Rounded/obese. Bowel sounds positive all four quadrants. Extremities: No clubbing, cyanosis. +1 BLE edema. Peripheral pulses palpable. No calf tenderness. Adequate peripheral circulation. Neurological: The patient is awake, oriented to time, people and place. Following simple commands, moving all extremities. Weight Current Weight Dosing Weight: 196.2 kg (06/30/23) Current Weight: 202.4 kg (06/29/23) Dosing Weight: 194.1 kg (06/28/23) Medications Medications (34) Active Scheduled: (15) albuterol - ipratropium 2.5 mg-0.5 mg/3 mL Inhal Milka UD 3 mL, Inhalation, QIDRT aspirin 81 mg Chewable 81 mg 1 tab(s), Oral, Daily atorvastatin 20 mg tablet 20 mg 1 tab(s), Oral, Daily budesonide 0.5 mg/2 mL Susp UD 0.5 mg 2 mL, Inhalation, BIDRT diclofenac topical 1% Gel 50 g 4 gram(s), Topical, QID furosemide 40 mg/4 mL vial 40 mg 4 mL, IV Push, BID iron sucrose 300 mg 15 mL, IV Piggyback, qDay levothyroxine 150 mcg tablet 150 mcg 1 tab(s), Oral, qDay metoprolol succinate 25 mg ER tablet 12.5 mg 0.5 tab(s), Oral, BID miconazole topical 2% Powder 1 leandro, Topical, BID Nicoderm patch REMOVAL 1 EA, Miscellaneous, q24h nicotine 21 mg/24 hr ER patch 21 mg 1 patch(es), Transdermal, q24h No metformin for 48 hrs post contrast 1 EA, Miscellaneous, Unscheduled pantoprazole 20 mg EC tablet 20 mg 1 tab(s), Oral, BIDAC predniSONE 10 mg tablet 10 mg 1 tab(s), Oral, BID Continuous: (1) heparin 25,000 unit(s) [12.88 unit(s)/kg/hr] + Dextrose 5% Premix Diluent 250 mL 250 mL, Intravenous, 25 mL/hr PRN: (18) acetaminophen 325 mg Tablet 650 mg 2 tab(s), Oral, q4h acetaminophen-HYDROcodone 325-5 mg tablet 1 tab(s), Oral, q4h albuterol - ipratropium 2.5 mg-0.5 mg/3 mL Inhal Milka UD 3 mL, Inhalation, q4hRT atropine 0.4 mg/ml 1 mL vial 0.4 mg 1 mL, IV Push, AsDirected dextrose 50% Solution Disp syringe 50 mL 12.5 gram(s) 25 mL, IV Push, AsDirected heparin 5,000 units/mL (1 mL) vial 8,750 unit(s) 1.75 mL, IV Push, q6h heparin 5,000 units/mL (1 mL) vial 7,764 unit(s) 1.55 mL, IV Push, q6h hydralazine 20 mg/mL (1mL) vial 5 mg 0.25 mL, IV Push, q6h magnesium sulfate 4 gram(s)/100mL PMX 4 g 100 mL, IV Piggyback, AsDirected magnesium sulfate 50% (500mg/mL) 6 g 12 mL, IV Piggyback, AsDirected magnesium sulfate PMX 2 g 50 mL, IV Piggyback, AsDirected melatonin 3 mg tablet 3 mg 1 tab(s), Oral, qHS morphine 2 mg/mL 1 mL syringe 2 mg 1 mL, IV Push, q6hr polyethylene glycol 3350 - UD packet 17 gram(s) 15 mL, Oral, qDay potassium chloride (PMX) 20 mEq/100 mL 20 mEq 100 mL, IV Piggyback, AsDirected potassium chloride 20 mEq ER tablet 20 mEq 1 tab(s), Oral, AsDirected potassium chloride 20 mEq ER tablet 40 mEq 2 tab(s), Oral, AsDirected potassium chloride 20 mEq ER tablet 40 mEq 2 tab(s), Oral, AsDirected Lab Results 06/30 09:42 Glucose Level: 209 H Sodium Level: 131 L Potassium Level: 5.0 BUN: 28.0 H Creatinine Lvl (s): 0.90 06/30 05:59 WBC: 14.4 H Hgb: 8.8 L Hct: 31.4 L Platelet: 328 Neutrophil %: 90.2 H Glucose Level: 239 H Sodium Level: 133 L Potassium Level: 5.1 H BUN: 25.0 H Creatinine Lvl (s): 0.92 06/29 15:06 WBC: 15.5 H Hgb: 9.7 L Hct: 33.4 L Platelet: 373 Neutrophil %: 95.5 H Glucose Level: 172 H Sodium Level: 135 L Potassium Level: 5.0 BUN: 25.0 H Creatinine Lvl (s): 1.00 EKG Electrocardiogram - Completed -- 06/29/23 17:03:00 EST Assessment/Plan Complete heart block - Patient had pacemaker placed 06/29. - Remains on metoprolol, aspirin, and heparin gtt per cardiology History of rheumatoid arthritis - Patient does not feel this is an RA flare - ESR >130, D dimer 6450, DORA negative - Patient remains on home Prednisone 10 mg BID and feels his pain is well controlled with this Acute on chronic hypoxic respiratory failure/COPD - Patient with increased oxygen demands from baseline, remains on 6L via [place] - Pulmonology consulted, will defer to them Tobacco use - Continue Nicotine patch -Smoking cessation encouraged. Hypothyroidism - Continue home Synthroid. Morbid Obesity- complicates all aspects of care. DVT prophylaxis: Heparin gtt At this time, there is nothing further to manage with patient's RA. Recommend follow up with PCP and [facility]. Hospitalist team will sign off at this time. Please reconsult for any further concerns. Plan of care discussed in depth with patient. Patient verbalizes understanding and is agreeable plan of care. Discussed with my collaborating physician Dr. Barajas. This dictation was performed using voice recognition software and may include grammatical and/or spelling errors Time Spent 28 minutes Digitally Signed by AYANNA SALINAS on 06/30/2023 04:[address] [id number] Note ORIGINAL EXAMINATION: TWO XRAY VIEWS OF THE CHEST 06/29/2023 8:35 pm COMPARISON: 06/29/2023 HISTORY: ORDERING SYSTEM PROVIDED HISTORY: Reason for Exam: Evaluate for pneumothorax/lead position post pacer/ICD insertion FINDINGS: There is a left chest wall pacemaker with appropriately placed leads. The cardiomediastinal silhouette appears stable, prominent. There is scattered bilateral pulmonary opacities including nodular opacity in the right upper lobe. There is no definite evidence of pleural effusion. There is no evidence of pneumothorax. No acute fracture is identified. IMPRESSION: 1. No pneumothorax identified. 2. Stable bilateral pulmonary opacities including 1.3 cm nodular opacity in the right upper lobe, for which nonemergent CT of the chest is recommended for further evaluation. Interpreted by: Chance Cisneros Preliminary Report By: Chance Cisneros Electronically signed By Chance Cisneros Dictated Date: 06/30/2023 12:03:21 AM Prelim Date: 06/30/2023 12:06:59 AM Sign Date: 06/30/2023 12:06:59 AM Ordering Provider: [facility]11-27-2023 NoteSINUS TACHYCARDIA RBBB AND LAFB Electronic Signature: JOSEY SHAIKH MD 06/30/2023 15:06:09[facility] 11-27-2023 Note Date of Service 06/29/23 Reason for Consultation Admission From: Home Consult to Skin Team Nurse (Consult to Skin Team) - Ordered -- 06/28/23 5:16:00 EST, Physician Order Skin Team Findings Vitals and Measurements T: 36.6 C (Oral) TMIN: 36.2 C (Skin) TMAX: 36.8 C (Oral) HR: 107(Monitored) RR: 22 BP: 147/77 SpO2:94% WT: 202.4 kg Pressure Area Details ------Incision/Wound------ Buttock Bilateral - Incision, Wound Cleansing: Cleaned with soap and water Buttock Bilateral - Incision, Wound Dressing/Activity: Open to air Buttock Bilateral - Skin Abnormality Color: [place] Buttock Bilateral - Skin Abnormality Pattern: Scattered, Other: chronic Buttock Bilateral - Skin Abnormality Type: Abscess Buttock Bilateral - Wound Exudate Amount: Scant Buttock Bilateral - Wound Exudate Odor: None Buttock Bilateral - Wound Exudate Type: Serous Groin Right - Incision, Wound Cleansing: Cleaned with soap and water Groin Right - Incision, Wound Dressing/Activity: Dressing Applied ABD pad Groin Right - Incision, Wound Surrounding Tissue: Boggy, Moist Groin Right - Skin Abnormality Color: [place] Groin Right - Skin Abnormality Pattern: Scattered Groin Right - Skin Abnormality Type: Abscess Groin Right - Wound Exudate Amount: Small Groin Right - Wound Exudate Odor: None Groin Right - Wound Exudate Type: Serous Groin Right - Wound Status: No complications Assessments and Recommendations ------Assessments------ Current Skin/Wound Interventions: Bariatric bed ------Recommendations------ Recommended Skin/Wound Interventions: Bariatric bed, Seat cushion, Turn and reposition every 2 hours, Proposed orders sent to physician Additional Skin Team Comments: Patient states PCP is wound care DR & follows abscesses, He keeps area clean & dry, uses Nystatin & ABD pads for drainage tucked into skin folds, recommend same treatment, change Nystatin to miconazole while here Education Individuals Taught: Patient Learning Readiness: Willing to learn Barriers to Learning: None evident Teaching Method: Explanation Problem List/Past Medical History Ongoing No qualifying data Historical No qualifying data Digitally Signed by STANISLAW Jewell on 06/29/2023 03:[address] [id number] Consult note Date of Service 06/29/[address] Olivier History of Present Illness 52-year-old male with history of coronary artery disease, morbid obesity, COPD with chronic hypoxicrespiratory failure on 4 L at home, history of DVT, obstructive sleep apnea likely, and rheumatoid arthritis on twice daily prednisone. Patient with syncopal event at home and found to be in third-degree heart block and transferred to this hospital for definitive treatment. Patient has already undergone demand pacemaker placement. Hospitalist team consulted to help manage patient's rheumatoid arthritis. Patient states that he has had rheumatoid arthritis for many years, has been on methotrexate, Plaquenil, biologic agents but has been unable to tolerate anything but prednisone. He is currently on prednisone 10 mg twice a dayalthough his medication list says prednisolone I asked him directly and he says he thinks it is prednisone. He states his joints hurt almost every day. We looked at his hands together and he says that what we are looking on is quite normal. There is no joint destruction, dorsum of the hands does have a redness across the entire hand with no particular joint swelling or focal erythema. He says that this is about how his hands feel normally day-to-day without there being an exacerbation in terms of pain. Review of Systems Review of systems otherwise negative. No recent fever or chills, no chest pain or pressure before this syncopal event. Patient is chronically short of breath and this is not changed. No recent cough or cold type symptoms. No nausea or vomiting or abdominal pain. Physical Exam Vitals and Measurements T: 36.6 C (Oral) TMIN: 36.2 C (Skin) TMAX: 36.8 C (Oral) HR: 105(Monitored) RR: 17(Total) BP: 112/52 SpO2: 96% WT: 202.4 kg Weight Current Weight Dosing Weight: 194.1 kg (06/28/23) Current Weight: 202.4 kg (06/29/23) Exam: Awake, alert, no distress. HEENT: No Palor, PERRL CVS: regular, no murmur, distant tones Lungs: good airflow, scattered crackles no wheeze or consolidation Abdomen: soft, non distended, no tenderness, obese Extremities: 1 + LE edema TINNING EQUIPMENT TENDER: Alert, No focal deficits identified. JOINTS: There is some redness in general to the dorsum of the hands but hand joints are not swollenand certainly do not appear to be tender on palpation. Elbows wrists and knees also appear to be quiescent at this time. Lab Results 06/28 06:50 WBC: 14.3 H Hgb: 9.4 L Hct: 33.0 L Platelet: 379 Neutrophil %: 65.3 Protime: 12.4 PT International Ratio: 1.1 Glucose Level: 106 Sodium Level: 138 Potassium Level: 4.3 BUN: 32.0 H Creatinine Lvl (s): 2.13 H Labs reviewed. Imaging Results and Diagnostics CXR reviewed Assessment/Plan Orders: predniSONE, Start: 06/29/23 13:13:00 EST, Dose = 10 mg, = 1 tab(s), Oral, BID, give with food, 0, 06/29/23 13:13:00 EST 1. Complete heart block. Patient immediately status post demand pacer placement. He is in regular sinus with a heart rate of 90 while I am in the room. Patient was syncope related to this. Cardiac medications and anticoagulation to be managed per primary cardiac team. 2. History of rheumatoid arthritis. According to the patient's own history, he does not believe this is a flare. ESR is greater than 130 and D-dimer is elevated as well, DORA is negative. I did discuss with the patient that it seems that his RA was not completely controlled at baseline and did tell him that I thought having a final coat sprayer would be beneficial. Right now his PCP is managing it with just prednisone. For now I restarted his normal prednisone dose which is what he requested. There is nothing else kylie done with his RA at this time. 3. History of obstructive sleep apnea and COPD with chronic hypoxic respiratory failure on 4 L of oxygen at home. Postoperatively, patient a little more hypoxic but also hypercapnic with a pH of 7.26 and a pCO2 inthe high 60s. Patient refusing BiPAP at this time and he may be able to ventilate better as he getsaway from the sedation from the procedure. Not unreasonable if he continues to be in acute hypercapnia with respiratory acidosis to involve pulmonary. There is mention in the admission note of patient having a concern for community-acquired pneumonia. To me his airflow is actually good and I do not hear any consolidation. There is also no real consolidation as read on the chest x-ray. He has no real cough at this time with no sputum production and no fevers or elevated white cell count. Could stop Rocephin and observe. Will follow. Problem List/Past Medical History Ongoing No qualifying data Historical No qualifying data Procedure/Surgical History Implantation of cardiac pacemaker: 06/29/23 Medications Inpatient aspirin 81 mg oral tablet, chewable, 81 mg= 1 tab(s), Oral, Daily atropine 0.4 mg/mL injectable solution ( PACU ), 0.4 mg= 1 mL, IV Push, AsDirected, PRN budesonide 0.5 mg/2 mL inhalation suspension, 0.5 mg= 2 mL, Inhalation, BIDRT Dextrose 50% IV Push, 12.5 gram(s)= 25 mL, IV Push, AsDirected, PRN DuoNeb, 3 mL, Inhalation, q4hRT, PRN DuoNeb, 3 mL, Inhalation, QIDRT fentaNYL ( PACU ), 25 mcg= 0.5 mL, IV Push, q5min, PRN fentaNYL ( PACU ), 50 mcg= 1 mL, IV Push, q5min, PRN Heparin for IV 25,000 unit(s) [12.88 unit(s)/kg/hr] + Dextrose 5% Premix Diluent 250 mL Heparin HBW Bolus 5000 units/mL, 8750 unit(s)= 1.75 mL, 70 unit(s)/kg, IV Push, q6h, PRN Heparin HBW Bolus 5000 units/mL, 7764 unit(s)= 1.55 mL, 40 unit(s)/kg, IV Push, q6h, PRN hydrALAZINE, 5 mg= 0.25 mL, IV Push, q6h, PRN levothyroxine, 150 mcg= 1 tab(s), Oral, qDay Lipitor, 20 mg= 1 tab(s), Oral, Daily magnesium sulfate for IV bolus, 2 gram(s)= 50 mL, IV Piggyback, AsDirected, PRN magnesium sulfate for IV bolus, 4 gram(s)= 100 mL, IV Piggyback, AsDirected, PRN magnesium sulfate for IV bolus melatonin, 3 mg= 1 tab(s), Oral, qHS, PRN midazolam, 1 mg= 1 mL, IV Push, q15min, PRN Miralax Powder Packet, 17 gram(s)= 15 mL, Oral, qDay, PRN morphine, 2 mg= 1 mL, IV Push, q6hr, PRN Nicoderm C-Q 21 mg/24 hr transdermal film, extended release, 21 mg= 1 patch(es), Transdermal, q24h nicotine (Nicoderm Patch REMOVAL), 1 EA, Miscellaneous, q24h pantoprazole, 20 mg= 1 tab(s), Oral, BIDAC Percocet 325/5, 1 tab(s), Oral, q6hr, PRN potassium chloride, 20 mEq= 1 tab(s), Oral, AsDirected, PRN potassium chloride, 40 mEq= 2 tab(s), Oral, AsDirected, PRN potassium chloride, 40 mEq= 2 tab(s), Oral, AsDirected, PRN potassium chloride bolus, 20 mEq= 100 mL, IV Piggyback, AsDirected, PRN predniSONE, 10 mg= 1 tab(s), Oral, BID Tylenol, 650 mg= 2 tab(s), Oral, q6hr, PRN Zofran ( PACU ), 4 mg= 2 mL, IV Push, AsDirected, PRN Home aspirin 81 mg oral tablet, chewable, 81 mg= 1 tab(s), Oral, Daily Brilinta (ticagrelor) 90 mg oral tablet, 90 mg= 1 tab(s), Oral, BID levothyroxine 150 mcg (0.15 mg)/5 mL oral solution, 150 mcg= 5 mL, Oral, qDay levothyroxine 88 mcg (0.088 mg) oral tablet, 88 mcg= 1 tab(s), Oral, qDay Lipitor 20 mg oral tablet, 20 mg= 1 tab(s), Oral, Daily metoprolol succinate 25 mg oral TABLET extended release, 12.5 mg= 0.5 tab(s), Oral, BID pantoprazole 20 mg oral enteric coated tablet, 20 mg= 1 tab(s), Oral, BIDAC Pradaxa 75 mg oral capsule, 75 mg= 1 cap(s), Oral, BID prednisoLONE (as sodium phosphate) 10 mg oral tablet, disintegrating, 10 mg= 1 tab(s), Oral, BID Allergies Latex (hives) Tape (rash) multivitamin with iron (rash) penicillin (hives) Social History Alcohol Do you ever drink more than intended: No. Has anyone been hurt or at risk by your drinking: No., 06/28/2023 Tobacco Nicotine Use: 10 or more cigarettes (1/2 pack or more)/day in last 30 days. Type: Cigarettes. Started at age: 15 Years., 06/28/2023 Immunizations No qualifying data available. Digitally Signed by PIERO SHAIKH MD on 06/29/2023 01:[address] [id number] Note ORIGINAL EXAMINATION: ONE XRAY VIEW OF THE CHEST06/29/2023 11:56 am COMPARISON: June 28, 2023 HISTORY: Reason for Exam: ro PTX FINDINGS: The enlarged cardiomediastinal silhouette remains stable. A left chest wall cardiac pacing device is in satisfactory position. There are prominent vascular markings and scattered areas of atelectasis. No pneumothorax is seen. IMPRESSION: No pneumothorax. Prominent vascular markings and scattered areas of atelectasis. Interpreted by: Leatha Palma MD Preliminary Report By: Leatha Palma MD Electronically signed By Leatha Palma MD Dictated Date: 06/29/2023 12:06:18 PM Prelim Date: 06/29/2023 12:15:49 PM Sign Date: 06/29/2023 12:15:49 PM Ordering Provider: [id number] Cardiology Progress note Date of Service 06/29/23 Chief Complaint This is a 52-year-old male with a past medical history significant for diabetes mellitus type 2, chronic hypoxic respiratory failure secondary to COPD on 4 L via nasal cannula, CAD status post RCA stent [2 to 3 years ago, on aspirin, Pradaxa and Brilinta], hypothyroidism, rheumatoid arthritis [not on biologic], tobacco abuse disorder [[id number] smoking history], prior DVT and BERT [noncompliantwith use of CPAP] who [facility] the emergency department [facility]. When he arrived via EMS, his heart rate was in the 30s and he was given atropine with improvement of heart rate to the 50s. EKG showed complete AV block with ventricular escape rhythm at 32 bpm. Chest x-ray showed patchy opacity at the peripheral of the left lung and right upper lung peripheral opacity as well. TTE 1. Left ventricle: The cavity size is normal. Wall thickness is mildly increased. The estimated ejection fraction is 60-65%. Regional wall motion abnormalities cannot be excluded due to poor acoustic windows. 2. Right atrium: The estimated right atrial pressure is 3 mm Hg Subjective Patient appears short of breath Objective Vitals and Measurements T: 36.6 C (Oral) TMIN: 36.2 C (Skin) TMAX: 36.8 C (Oral) HR: 110(Monitored) RR: 22 BP: 126/64 SpO2:94% WT: 202.4 kg Intake and Output 7AM Yesterday to 7AM Today Intake and Output (Last 24 hours) Intake Administration Information 431.11 Output Urine Voided 1000.00 Intra-Op EBL 10.00 Total Summary Total Intake 431.11 Total Output 1010.00 Fluid Balance -578.89 Physical Exam General Appearance: Appears to be mild respiratory distress Head: Atraumatic and normocephalic EENT: EOMI, PERRLA Neck: Difficult to assess JVD given body habitus Cardiac: S1 and S2 normal. Lungs: Poor inspiratory effort Abdomen: Soft, nontender, nondistended. Musculoskeletal: Full range of motion upper and lower extremities. Extremities: + lower extremity nonpitting edema bilaterally likely related to chronic lymphedema. Neurological: CN II through XII grossly intact. Weight Current Weight Dosing Weight: 194.1 kg (06/28/23) Current Weight: 202.4 kg (06/29/23) Medications Medications (32) Active Scheduled: (9) albuterol 0.083% Soln UD (2.5mg/3 mL) 2.5 mg 3 mL, Inhalation, BIDRT aspirin 81 mg Chewable 81 mg 1 tab(s), Oral, Daily atorvastatin 20 mg tablet 20 mg 1 tab(s), Oral, Daily budesonide 0.5 mg/2 mL Susp UD 0.5 mg 2 mL, Inhalation, BIDRT levothyroxine 150 mcg tablet 150 mcg 1 tab(s), Oral, qDay Nicoderm patch REMOVAL 1 EA, Miscellaneous, q24h nicotine 21 mg/24 hr ER patch 21 mg 1 patch(es), Transdermal, q24h pantoprazole 20 mg EC tablet 20 mg 1 tab(s), Oral, BIDAC Prednisolone ODT 10mg Tablet 10 mg, Oral, BID Continuous: (1) heparin 25,000 unit(s) [12.88 unit(s)/kg/hr] + Dextrose 5% Premix Diluent 250 mL 250 mL, Intravenous, 25 mL/hr PRN: (22) acetaminophen 325 mg Tablet 650 mg 2 tab(s), Oral, q6hr acetaminophen-OXYcodone 325 mg-5 mg Tablet 1 tab(s), Oral, q6hr albuterol - ipratropium 2.5 mg-0.5 mg/3 mL Inhal Milka UD 3 mL, Inhalation, q4hRT atropine 0.4 mg/ml 1 mL vial 0.4 mg 1 mL, IV Push, AsDirected dextrose 50% Solution Disp syringe 50 mL 12.5 gram(s) 25 mL, IV Push, AsDirected fentaNYL 50 mcg/mL (2mL) ampule 25 mcg 0.5 mL, IV Push, q5min fentaNYL 50 mcg/mL (2mL) ampule 50 mcg 1 mL, IV Push, q5min heparin 5,000 units/mL (1 mL) vial 8,750 unit(s) 1.75 mL, IV Push, q6h heparin 5,000 units/mL (1 mL) vial 7,764 unit(s) 1.55 mL, IV Push, q6h hydralazine 20 mg/mL (1mL) vial 5 mg 0.25 mL, IV Push, q6h magnesium sulfate 4 gram(s)/100mL PMX 4 g 100 mL, IV Piggyback, AsDirected magnesium sulfate 50% (500mg/mL) 6 g 12 mL, IV Piggyback, AsDirected magnesium sulfate PMX 2 g 50 mL, IV Piggyback, AsDirected melatonin 3 mg tablet 3 mg 1 tab(s), Oral, qHS midazolam 1 mg/mL (2mL) SDV 1 mg 1 mL, IV Push, q15min morphine 2 mg/mL 1 mL syringe 2 mg 1 mL, IV Push, q6hr ondansetron 2 mg/ 1 mL 2 mL INJ 4 mg 2 mL, IV Push, AsDirected polyethylene glycol 3350 - UD packet 17 gram(s) 15 mL, Oral, qDay potassium chloride (PMX) 20 mEq/100 mL 20 mEq 100 mL, IV Piggyback, AsDirected potassium chloride 20 mEq ER tablet 20 mEq 1 tab(s), Oral, AsDirected potassium chloride 20 mEq ER tablet 40 mEq 2 tab(s), Oral, AsDirected potassium chloride 20 mEq ER tablet 40 mEq 2 tab(s), Oral, AsDirected Lab Results 06/28 06:50 WBC: 14.3 H Hgb: 9.4 L Hct: 33.0 L Platelet: 379 Neutrophil %: 65.3 Protime: 12.4 PT International Ratio: 1.1 Glucose Level: 106 Sodium Level: 138 Potassium Level: 4.3 BUN: 32.0 H Creatinine Lvl (s): 2.13 H EKG EKG - Completed -- 06/28/23 3:48:00 EST EKG - Completed -- 06/28/23 10:33:00 EST Electrocardiogram (EKG) - Ordered -- 06/28/23 17:17:00 EST Assessment/Plan Acute on chronic hypoxic hypercapnic respiratory failure High degree AV block Syncope Troponin elevation, resolved likely type II MS Lactic acidosis, stable Leukocytosis, likely reactive Chronic right popliteal vein DVT Microcytic anemia Concern for rheumatoid arthritis flare History of diabetes mellitus type 2, chronic hypoxic respiratory failure, COPD, CAD, hypothyroidism, rheumatoid arthritis, tobacco abuse disorder, BERT Plan: Acute on chronic hypoxic hypercapnic respiratory failure Patient was assessed following pacemaker placement and did appear significantly short of breath as such patient was placed on 7 L high flow nasal cannula due to desaturation. Chest x-ray shows worsening pleural edema despite 1.4 L urine output over the past 24 hours. Patient's creatinine did go up from 1.5 on admission to 2. Will give an additional dose of Lasix 40 IV x 1 given that SARAH may be due to congestive nephropathy. Additionally ABG has been obtained which did show respiratory acidosis due to hypercapnia. Patient will be placed on BiPAP 15/10. Will continue DuoNebs 4 times daily and budesonide twice daily. Can consider nephrology and pulmonology consult tomorrow should patient's renal function and respiratory status continued to deteriorate. High degree AV block It is very likely that patient had significantly increased vagal tone induced by pain from fall which may have contributed to his high degree AV block in the setting of underlying suspected baseline conduction delay. This degree of AV blockade from his stable dose of metoprolol for several years isunlikely. Underwent DDD pacemaker device placement on 06/29/2023 and tolerated procedure well. Holdheparin/NOACs for at least 12 to 24 hours. Ok to give aspirin. no strenuous lifting/pushing/pullingwith the left arm for 4 weeks. Patient should remove Aquacel dressing in 1 week. He is to follow upwith the device clinic -- 14 day incision check, 90 day device check. We appreciate the assistance of electrophysiology in the care of this patient. Syncope CT head ordered to rule out intracranial bleed particularly because patient is on aspirin, Brilintaand Pradaxa at home. At this time it is safe to hold Brilinta given that patient had his stents placed over a year ago and was told given recent pacemaker device placement. Chronic right popliteal vein DVT and sinus tachycardia Will start patient on heparin by weight at midnight which would be approximately 12 hours post pacemaker placement Patient's D-dimer significantly elevated given his SARAH, will hold off on doing CT of the chest. No obvious evidence of RV strain on TTE. Patient is currently on antibiotic. Presents tachycardia we will resume patient's home metoprolol given that he does have a pacemaker placed this time Concern for rheumatoid arthritis flare ESR is greater than 130 and CRP greater than 1.9. DORA and rheumatoid factor pending. Patient reports that he only takes prednisone as outpatient for control of his rheumatoid arthritis. Hospitalist has been Consulted for rheumatoid arthritis management. We appreciate their assistance in the care ofthis patient. Microcytic anemia Iron studies are pending. Will start Venofer therapy if there is evidence of iron deficiency anemiawhich is highly suspected given MCV of 72. Patient will need to be on long-term aspirin and Pradaxa[given history of chronic DVT]. He should undergo colonoscopy plus or minus EGD as outpatient Digitally Signed by KAILEE DONOVAN MD on 06/29/2023 06:36 PM Digitally Signed by KAILEE DONOVAN MD on 06/29/2023 07:36 PM Digitally Signed by KENYATTA CABALLERO MD [id number] Anesthesiology Progress note Patient: CAYLA GRANADOS Age: 52 years Sex: Male : 1970 Associated Diagnoses: None Author: LAUREN DE SOUZA MD Postoperative Information Post Operative Info: Post op day: Post Anesthesia Care Unit. Patient location: Cardiac Logistics/Shipper/Cardiac Same Day Unit. Assessment Postanesthesia assessment Vitals: Vital signs from flowsheet : Vital Signs 06/29/2023 10:30 EST Heart Rate Monitored 107 bpm HI Respiratory Rate 20 br/min Systolic Blood Pressure Non-Invasive 155 mmHg HI Diastolic Blood Pressure Non-Invasive 60 mmHg 06/29/2023 10:25 EST Respiratory Rate 22 br/min HI Systolic Blood Pressure Non-Invasive 148 mmHg HI Diastolic Blood Pressure Non-Invasive 65 mmHg 06/29/2023 10:20 EST Respiratory Rate 22 br/min HI Systolic Blood Pressure Non-Invasive 140 mmHg Diastolic Blood Pressure Non-Invasive 72 mmHg 06/29/2023 10:15 EST Heart Rate Monitored 114 bpm HI Respiratory Rate 24 br/min HI Systolic Blood Pressure Non-Invasive 104 mmHg Diastolic Blood Pressure Non-Invasive 62 mmHg 06/29/2023 10:05 EST Heart Rate Monitored 113 bpm HI Respiratory Rate 20 br/min Systolic Blood Pressure Non-Invasive 163 mmHg HI Diastolic Blood Pressure Non-Invasive 109 mmHg >HHI 06/29/2023 10:00 EST Temperature Skin 36.2 DegC Heart Rate Monitored 110 bpm HI Heart Rate Monitored 108 bpm HI Respiratory Rate 20 br/min Respiratory Rate 15 br/min Systolic Blood Pressure Non-Invasive 159 mmHg HI Systolic Blood Pressure Non-Invasive 150 mmHg HI Diastolic Blood Pressure Non-Invasive 47 mmHg Diastolic Blood Pressure Non- Invasive 44 mmHg 06/29/2023 9:50 EST Respiratory Rate - Anes 31 br/min br/min 06/29/2023 9:47 EST Respiratory Rate - Anes 23 br/min br/min Systolic Blood Pressure Non-Invasive 124 mmHg mmHg Diastolic Blood Pressure Non-Invasive 58 mmHg mmHg 06/29/2023 9:46 EST Respiratory Rate - Anes 21 br/min br/min 06/29/2023 9:45 EST Temperature (Route Not Specified) 36.5 DegC DegC Heart Rate Monitored 99 bpm bpm Respiratory Rate - Anes 25 br/min br/min 06/29/2023 9:41 EST Systolic Blood Pressure Non-Invasive 133 mmHg mmHg Diastolic Blood Pressure Non-Invasive 67 mmHg mmHg 06/29/2023 9:40 EST Heart Rate Monitored 92 bpm bpm Respiratory Rate - Anes 25 br/min br/min 06/29/2023 9:36 EST Systolic Blood Pressure Non-Invasive 129 mmHg mmHg Diastolic Blood Pressure Non-Invasive 58 mmHg mmHg 06/29/2023 9:35 EST Heart Rate Monitored 97 bpm bpm Respiratory Rate - Anes 23 br/min br/min 06/29/2023 9:31 EST Systolic Blood Pressure Non-Invasive 121 mmHg mmHg Diastolic Blood Pressure Non-Invasive 59 mmHg mmHg 06/29/2023 9:30 EST Temperature (Route Not Specified) 36.5 DegC DegC Heart Rate Monitored 98 bpm bpm Respiratory Rate - Anes 24 br/min br/min 06/29/2023 9:26 EST Systolic Blood Pressure Non-Invasive 120 mmHg mmHg Diastolic Blood Pressure Non-Invasive 56 mmHg mmHg 06/29/2023 9:25 EST Heart Rate Monitored 99 bpm bpm Respiratory Rate - Anes 26 br/min br/min 06/29/2023 9:21 EST Systolic Blood Pressure Non-Invasive 111 mmHg mmHg Diastolic Blood Pressure Non-Invasive 59 mmHg mmHg 06/29/2023 9:20 EST Heart Rate Monitored 100 bpm bpm Respiratory Rate - Anes 25 br/min br/min 06/29/2023 9:16 EST Systolic Blood Pressure Non-Invasive 103 mmHg mmHg Diastolic Blood Pressure Non-Invasive 61 mmHg mmHg 06/29/2023 9:15 EST Temperature (Route Not Specified) 36.5 DegC DegC Heart Rate Monitored 101 bpm bpm Respiratory Rate - Anes 24 br/min br/min 06/29/2023 9:11 EST Systolic Blood Pressure Non-Invasive 108 mmHg mmHg Diastolic Blood Pressure Non-Invasive 58 mmHg mmHg 06/29/2023 9:10 EST Heart Rate Monitored 101 bpm bpm Respiratory Rate - Anes 22 br/min br/min 06/29/2023 9:06 EST Systolic Blood Pressure Non-Invasive 95 mmHg mmHg Diastolic Blood Pressure Non-Invasive 37 mmHg mmHg 06/29/2023 9:05 EST Heart Rate Monitored 116 bpm bpm Respiratory Rate - Anes 15 br/min br/min 06/29/2023 9:01 EST Systolic Blood Pressure Non-Invasive 102 mmHg mmHg Diastolic Blood Pressure Non-Invasive 62 mmHg mmHg 06/29/2023 9:00 EST Temperature (Route Not Specified) 36.5 DegC DegC Heart Rate Monitored 120 bpm bpm Respiratory Rate - Anes 26 br/min br/min 06/29/2023 8:56 EST Systolic Blood Pressure Non-Invasive 123 mmHg mmHg Diastolic Blood Pressure Non-Invasive 55 mmHg mmHg 06/29/2023 8:55 EST Heart Rate Monitored 100 bpm bpm Respiratory Rate - Anes 26 br/min br/min 06/29/2023 8:51 EST Systolic Blood Pressure Non-Invasive 113 mmHg mmHg Diastolic Blood Pressure Non-Invasive 56 mmHg mmHg 06/29/2023 8:50 EST Heart Rate Monitored 98 bpm bpm Respiratory Rate - Anes 26 br/min br/min 06/29/2023 8:46 EST Systolic Blood Pressure Non-Invasive 118 mmHg mmHg Diastolic Blood Pressure Non-Invasive 54 mmHg mmHg 06/29/2023 8:45 EST Temperature (Route Not Specified) 36.5 DegC DegC Heart Rate Monitored 97 bpm bpm Respiratory Rate - Anes 26 br/min br/min 06/29/2023 8:41 EST Systolic Blood Pressure Non-Invasive 118 mmHg mmHg Diastolic Blood Pressure Non-Invasive 57 mmHg mmHg 06/29/2023 8:40 EST Heart Rate Monitored 100 bpm bpm Respiratory Rate - Anes 29 br/min br/min 06/29/2023 8:36 EST Systolic Blood Pressure Non-Invasive 109 mmHg mmHg Diastolic Blood Pressure Non-Invasive 62 mmHg mmHg 06/29/2023 8:35 EST Heart Rate Monitored 100 bpm bpm Respiratory Rate - Anes 31 br/min br/min 06/29/2023 8:31 EST Systolic Blood Pressure Non-Invasive 89 mmHg mmHg (In Error) Diastolic Blood Pressure Non-Invasive 61 mmHg mmHg (In Error) 06/29/2023 8:30 EST Temperature (Route Not Specified) 36.5 DegC DegC Heart Rate Monitored 99 bpm bpm Respiratory Rate - Anes 31 br/min br/min Systolic Blood Pressure Non-Invasive 119 mmHg mmHg 06/29/2023 8:26 EST Respiratory Rate - Anes 27 br/min br/min Systolic Blood Pressure Non-Invasive 102 mmHg mmHg Diastolic Blood Pressure Non-Invasive 55 mmHg mmHg 06/29/2023 8:25 EST Heart Rate Monitored 101 bpm bpm Respiratory Rate - Anes 27 br/min br/min 06/29/2023 8:22 EST Respiratory Rate - Anes 20 br/min br/min 06/29/2023 8:21 EST Respiratory Rate - Anes 26 br/min br/min 06/29/2023 8:20 EST Heart Rate Monitored 102 bpm bpm Respiratory Rate - Anes 26 br/min br/min (Modified) Systolic Blood Pressure Non-Invasive 103 mmHg mmHg Diastolic Blood Pressure Non-Invasive 57 mmHg mmHg 06/29/2023 8:17 EST Respiratory Rate - Anes 26 br/min br/min 06/29/2023 8:16 EST Respiratory Rate - Anes 30 br/min br/min 06/29/2023 8:15 EST Temperature (Route Not Specified) 36.5 DegC DegC (Modified) Heart Rate Monitored 100 bpm bpm Respiratory Rate - Anes 31 br/min br/min Systolic Blood Pressure Non-Invasive 106 mmHg mmHg Diastolic Blood Pressure Non-Invasive 47 mmHg mmHg 06/29/2023 8:11 EST Temperature (Route Not Specified) 36.5 DegC DegC 06/29/2023 8:10 EST Respiratory Rate - Anes 0 br/min br/min Systolic Blood Pressure Non-Invasive 147 mmHg mmHg Diastolic Blood Pressure Non-Invasive 118 mmHg mmHg 06/29/2023 6:54 EST Temperature Oral 36.5 DegC Heart Rate Monitored 85 bpm Respiratory Rate 20 br/min Systolic Blood Pressure Non-Invasive 129 mmHg Diastolic Blood Pressure Non-Invasive 44 mmHg Mean Arterial Pressure (NBP) 68 mmHg Blood Pressure Method Automatic Blood Pressure Location Right arm Blood Pressure Cuff Size Large Reason For Taking VItal Signs Routine 06/29/2023 6:37 EST Peripheral Pulse Rate 83 bpm Respiratory Rate 20 br/min 06/29/2023 3:30 EST Temperature Oral 36.8 DegC Heart Rate Monitored 100 bpm Respiratory Rate 22 br/min HI Systolic Blood Pressure Non-Invasive 140 mmHg Diastolic Blood Pressure Non-Invasive 55 mmHg LOW Reason For Taking VItal Signs Routine 06/28/2023 22:42 EST Heart Rate Monitored 86 bpm Respiratory Rate 20 br/min Systolic Blood Pressure Non-Invasive 138 mmHg Diastolic Blood Pressure Non-Invasive 51 mmHg LOW Reason For Taking VItal Signs Routine 06/28/2023 20:37 EST Temperature Oral 36.8 DegC Heart Rate Monitored 92 bpm Respiratory Rate 22 br/min HI Systolic Blood Pressure Non-Invasive 124 mmHg Diastolic Blood Pressure Non-Invasive 56 mmHg LOW Blood Pressure Method Manual Blood Pressure Location Left arm Blood Pressure Cuff Size Large Reason For Taking VItal Signs Routine 06/28/2023 20:00 EST Heart Rate Monitored 97 bpm Respiratory Rate 22 br/min HI Reason For Taking VItal Signs Routine 06/28/2023 19:12 EST Peripheral Pulse Rate 86 bpm Respiratory Rate 24 br/min HI 06/28/2023 17:54 EST Heart Rate Monitored 83 bpm Respiratory Rate 22 br/min HI Systolic Blood Pressure Non-Invasive 124 mmHg Diastolic Blood Pressure Non-Invasive 68 mmHg 06/28/2023 16:33 EST Heart Rate Monitored 85 bpm Respiratory Rate 22 br/min HI Systolic Blood Pressure Non-Invasive In Error mmHg (In Error) Diastolic Blood Pressure Non-Invasive In Error mmHg (In Error) Blood Pressure Method In Error (In Error) Blood Pressure Location In Error (In Error) Blood Pressure Cuff Size In Error (In Error) 06/28/2023 15:40 EST Temperature Oral 36.5 DegC Heart Rate Monitored 95 bpm Respiratory Rate 24 br/min HI Systolic Blood Pressure Non-Invasive 145 mmHg HI Diastolic Blood Pressure Non-Invasive 75 mmHg Mean Arterial Pressure (NBP) 87 mmHg Blood Pressure Method Automatic Blood Pressure Location Left arm Blood Pressure Cuff Size Large Reason For Taking VItal Signs Routine 06/28/2023 15:10 EST Heart Rate Monitored 84 bpm Heart Rate Monitored 85 bpm 06/28/2023 12:35 EST Heart Rate Monitored 86 bpm Respiratory Rate 20 br/min 06/28/2023 11:06 EST Heart Rate Monitored 85 bpm 06/28/2023 10:19 EST Temperature Oral 36.6 DegC Heart Rate Monitored 91 bpm Respiratory Rate 20 br/min Systolic Blood Pressure Non-Invasive 124 mmHg Diastolic Blood Pressure Non-Invasive 60 mmHg Blood Pressure Method Automatic Blood Pressure Location Left arm Blood Pressure Cuff Size Large Reason For Taking VItal Signs Routine 06/28/2023 7:27 EST Heart Rate Monitored 91 bpm Respiratory Rate 22 br/min HI 06/28/2023 7:07 EST Heart Rate Monitored 93 bpm 06/28/2023 7:00 EST Peripheral Pulse Rate 86 bpm Respiratory Rate 22 br/min HI 06/28/2023 6:36 EST Heart Rate Monitored 91 bpm Respiratory Rate 22 br/min HI Systolic Blood Pressure Non-Invasive 137 mmHg Diastolic Blood Pressure Non-Invasive 46 mmHg Mean Arterial Pressure (NBP) 72 mmHg 06/28/2023 5:13 EST Heart Rate Monitored 91 bpm 06/28/2023 3:48 EST Heart Rate Monitored 40 bpm LOW 06/28/2023 3:31 EST Temperature Oral 37.2 DegC Apical Heart Rate 38 bpm Respiratory Rate 24 br/min HI Systolic Blood Pressure Non-Invasive 158 mmHg HI Diastolic Blood Pressure Non-Invasive 54 mmHg LOW Blood Pressure Method Automatic Blood Pressure Location Left arm Blood Pressure Cuff Size Large Reason For Taking VItal Signs Admission , Oxygen Therapy : Oxygen Therapy & Oxygenation Information 06/29/2023 10:30 EST Oxygen Therapy Nasal cannula 0L-6L Oxygen Saturation 90 % LOW Oxygen Flow Rate 6 06/29/2023 10:25 EST Oxygen Therapy Nasal cannula 0L-6L Oxygen Saturation 91 % LOW Oxygen Flow Rate 6 06/29/2023 10:20 EST Oxygen Therapy Nasal cannula 0L-6L Oxygen Saturation 90 % LOW Oxygen Flow Rate 6 06/29/2023 10:15 EST Oxygen Therapy Nasal cannula 0L-6L Oxygen Saturation 91 % LOW Oxygen Flow Rate 6 06/29/2023 10:05 EST Oxygen Therapy Nasal cannula 0L-6L Oxygen Saturation 88 % Oxygen Flow Rate 6 06/29/2023 10:00 EST Oxygen Therapy Nasal cannula 0L-6L Oxygen Therapy Nasal cannula 0L-6L Oxygen Saturation 92 % LOW Oxygen Saturation 90 % LOW Oxygen Flow Rate 6 Oxygen Flow Rate 6 06/29/2023 9:47 EST Oxygen Saturation 95 % % 06/29/2023 9:46 EST Oxygen Saturation 95 % % 06/29/2023 9:45 EST Oxygen Saturation 95 % % 06/29/2023 9:44 EST Oxygen Saturation 95 % % 06/29/2023 9:43 EST Oxygen Saturation 95 % % 06/29/2023 9:42 EST Oxygen Saturation 90 % % 06/29/2023 9:40 EST Oxygen Saturation 89 % % 06/29/2023 9:35 EST Oxygen Saturation 92 % % 06/29/2023 9:30 EST Oxygen Saturation 92 % % 06/29/2023 9:25 EST Oxygen Saturation 91 % % 06/29/2023 9:20 EST Oxygen Saturation 90 % % 06/29/2023 9:15 EST Oxygen Saturation 89 % % 06/29/2023 9:14 EST Oxygen Saturation 90 % % 06/29/2023 9:10 EST Oxygen Saturation 90 % % 06/29/2023 9:07 EST Oxygen Saturation 90 % % 06/29/2023 9:06 EST Oxygen Saturation 90 % % 06/29/2023 9:05 EST Oxygen Saturation 90 % % (Modified) 06/29/2023 9:04 EST Oxygen Saturation 90 % % 06/29/2023 9:03 EST Oxygen Saturation 90 % % 06/29/2023 9:02 EST Oxygen Saturation 90 % % 06/29/2023 9:01 EST Oxygen Saturation 90 % % 06/29/2023 9:00 EST Oxygen Saturation 90 % % (Modified) 06/29/2023 8:59 EST Oxygen Saturation 90 % % 06/29/2023 8:57 EST Oxygen Saturation 90 % % 06/29/2023 8:55 EST Oxygen Saturation 90 % % 06/29/2023 8:50 EST Oxygen Saturation 90 % % (Modified) 06/29/2023 8:49 EST Oxygen Saturation 90 % % 06/29/2023 8:48 EST Oxygen Saturation 90 % % 06/29/2023 8:45 EST Oxygen Saturation 90 % % 06/29/2023 8:40 EST Oxygen Saturation 87 % % 06/29/2023 8:38 EST Oxygen Saturation 82 % % 06/29/2023 8:35 EST Oxygen Saturation 87 % % 06/29/2023 8:30 EST Oxygen Saturation 85 % % 06/29/2023 8:25 EST Oxygen Saturation 83 % % 06/29/2023 8:20 EST Oxygen Saturation 74 % % (Modified) 06/29/2023 8:19 EST Oxygen Saturation 85 % % 06/29/2023 8:15 EST Oxygen Saturation 97 % % 06/29/2023 8:14 EST Oxygen Saturation 97 % % 06/29/2023 8:12 EST Oxygen Saturation 95 % % 06/29/2023 8:11 EST Oxygen Saturation 95 % % 06/29/2023 8:10 EST Oxygen Saturation 95 % % (Modified) 06/29/2023 8:09 EST Oxygen Saturation 95 % % 06/29/2023 6:54 EST Oxygen Saturation 96 % 06/29/2023 6:37 EST Oxygen Therapy Nasal cannula 0L-6L Oxygen Saturation 97 % Oxygen Activity Oxygen On Oxygen Flow Rate 4 06/29/2023 3:30 EST Oxygen Therapy Nasal cannula 0L-6L Oxygen Saturation 94 % Oxygen Flow Rate 4 06/28/2023 22:42 EST Oxygen Therapy Nasal cannula 0L-6L Oxygen Saturation 95 % Oxygen Flow Rate 4 06/28/2023 20:37 EST Oxygen Therapy Nasal cannula 0L-6L Oxygen Saturation 97 % Oxygen Flow Rate 4 06/28/2023 20:00 EST Oxygen Therapy Nasal cannula 0L-6L Oxygen Saturation 96 % Oxygen Flow Rate 4 06/28/2023 19:12 EST Oxygen Saturation 95 % 06/28/2023 17:54 EST Oxygen Therapy Nasal cannula 0L-6L Oxygen Saturation 96 % Oxygen Flow Rate 4 06/28/2023 16:33 EST Oxygen Therapy Nasal cannula 0L-6L Oxygen Saturation 96 % Oxygen Flow Rate 4 06/28/2023 15:40 EST Oxygen Therapy Nasal cannula 0L-6L Oxygen Saturation 96 % Oxygen Flow Rate 4 06/28/2023 12:35 EST Oxygen Therapy Nasal cannula 0L-6L Oxygen Flow Rate 4 06/28/2023 10:19 EST Oxygen Therapy Nasal cannula 0L-6L Oxygen Saturation 94 % Oxygen Flow Rate 4 06/28/2023 7:27 EST Oxygen Therapy Nasal cannula 0L-6L Oxygen Flow Rate 4 06/28/2023 7:00 EST Oxygen Saturation 94 % 06/28/2023 6:36 EST Oxygen Therapy Nasal cannula 0L-6L Oxygen Saturation 98 % Oxygen Flow Rate 4 06/28/2023 3:31 EST Oxygen Therapy Nasal cannula 0L-6L Oxygen Saturation 93 % Oxygen Flow Rate 4 . Mental status: at preoperative baseline. Respiratory function: respirations are non-labored, Stable. Respiratory support: none. CV function: Stable. Cardiovascular support: none. Pain: Satisfactory. Nausea status: Satisfactory. Postoperative hydration status: within normal limits. Notes: Patient is sufficiently recovered from anesthesia to participate in the evaluation. No follow-up care needed. No complications post-anesthesia.. Digitally Signed by LAUREN DE SOUZA MD on 06/29/2023 10:[address] [id number] Note 52 yr old with CAD s/p PCI (2 years ago), Normal EF, morbid obesity, COPD 4L home, tobacco ongoing,BERT, DVT, transfer from [place] in 3rd degree AV block with severe arnulfo after presenting with syncope. Procedure - DUAL CHAMBER PACEMAKER (LT SIDE; LT BUNDLE; HOYOS) RECS - hold heparin/NOACs 12-24 hours. Ok to give aspirin - restrictions: no strenuous lifting/pushing/pulling with the left arm for 4 weeks - Patient should remove Aquacel dressing in 1 week; okay to shower with this on - we will arrange f/u in the device clinic -- 14 day incision check, 90 day device check Digitally Signed by LOU ABDULLAHI MD on 06/29/2023 09:[address] [id number] Note Patient Out of room will reattempt assessment at a later time. Digitally Signed by STANISLAW Jewell on 06/29/2023 09:[address] [id number] Anesthesiology Consult note Patient: CAYLA GRANADOS Age: 52 years Sex: Male : 1970 Associated Diagnoses: None Author: LAUREN DE SOUZA MD Preoperative Information Greater than 8 hours Anesthesia history Patient's history: negative. Family's history: negative. Review of Systems Ear/Nose/Mouth/Throat: See Problem List. Respiratory: See Problem List. Cardiovascular: See Problem List. Gastrointestinal: See Problem List. Genitourinary: See Problem List. Endocrine: See Problem List. Musculoskeletal: See Problem List. Integumentary: See Problem List. Neurologic: See Problem List. Health Status Allergies: Allergic Reactions (Selected) Severity Not Documented Latex- Hives. Multivitamin with iron- Rash. Penicillin- Hives. Tape- Rash., Allergies (4) ActiveReaction Latexhives multivitamin with ironrash penicillinhives Taperash Current medications: (Selected) Inpatient Medications Ordered Dextrose 50% IV Push: 12.5 gram(s), 25 mL, IV Push, AsDirected, PRN: Hypoglycemia DuoNeb: 3 mL, Inhalation, q4hRT, PRN: decreased breath sounds Heparin HBW Bolus 5000 units/mL: 7,764 unit(s), 1.55 mL, IV Push, q6h, PRN: Protocol, Weight Based Heparin Heparin HBW Bolus 5000 units/mL: 8,750 unit(s), 1.75 mL, IV Push, q6h, PRN: Protocol, Weight Based Heparin Heparin for IV 25,000 unit(s) [12.88 unit(s)/kg/hr] + Dextrose 5% Premix Diluent 250 mL: 25 mL/hr, Intravenous Lipitor: 20 mg, 1 tab(s), Oral, Daily Miralax Powder Packet: 17 gram(s), 15 mL, Oral, qDay, PRN: Constipation Nicoderm C-Q 21 mg/24 hr transdermal film, extended release: 21 mg, 1 patch(es), Transdermal, q24h Percocet 325/5: 1 tab(s), Oral, q6hr, PRN: Pain, scale 4-6 Prednisolone ODT 10mg Tablet: 10 mg, Oral, BID Tylenol: 650 mg, 2 tab(s), Oral, q6hr, PRN: Pain, scale 1-3 albuterol 2.5 mg/3 mL (0.083%) inhalation solution: 2.5 mg, 3 mL, Inhalation, BIDRT aspirin 81 mg oral tablet, chewable: 81 mg, 1 tab(s), Oral, Daily budesonide 0.5 mg/2 mL inhalation suspension: 0.5 mg, 2 mL, Inhalation, BIDRT hydrALAZINE: 5 mg, 0.25 mL, IV Push, q6h, PRN: Systolic BP: See order comments levothyroxine: 150 mcg, 1 tab(s), Oral, qDay magnesium sulfate for IV bolus: 2 g, 50 mL, 25 mL/hr, IV Piggyback, AsDirected, PRN: for Mg level 1.5-1.8 mg/dl magnesium sulfate for IV bolus: 4 g, 100 mL, 25 mL/hr, IV Piggyback, AsDirected, PRN: for Mg level 1.1-1.4 mg/dl magnesium sulfate for IV bolus: 6 g, 12 mL, 41.67 mL/hr, IV Piggyback, AsDirected, PRN: for Mg level 1 mg/dl or less melatonin: 3 mg, 1 tab(s), Oral, qHS, PRN: Sleep morphine: 2 mg, 1 mL, IV Push, q6hr, PRN: Pain, scale 7-10 nicotine (Nicoderm Patch REMOVAL): 1 EA, Miscellaneous, q24h pantoprazole: 20 mg, 1 tab(s), Oral, BIDAC potassium chloride bolus: 20 mEq, 100 mL, 50 mL/hr, IV Piggyback, AsDirected, PRN: for K+ level 2.5- 2.9 mEq/dL potassium chloride: 20 mEq, 1 tab(s), Oral, AsDirected, PRN: for K+ level 3.5 - 3.9 mEq/L potassium chloride: 40 mEq, 2 tab(s), Oral, AsDirected, PRN: for K+ level 2.5 - 2.9 mEq/dL potassium chloride: 40 mEq, 2 tab(s), Oral, AsDirected, PRN: for K+ level 3-3.4 mEq/L Documented Medications Documented Brilinta (ticagrelor) 90 mg oral tablet: 90 mg, 1 tab(s), Oral, BID, 60 tab(s), 0 Refill(s) Lipitor 20 mg oral tablet: 20 mg, 1 tab(s), Oral, Daily, 100 tab(s), 0 Refill(s) Pradaxa 75 mg oral capsule: 75 mg, 1 cap(s), Oral, BID, 0 Refill(s) aspirin 81 mg oral tablet, chewable: 81 mg, 1 tab(s), Oral, Daily, 30 tab(s), 0 Refill(s) levothyroxine 150 mcg (0.15 mg)/5 mL oral solution: 150 mcg, 5 mL, Oral, qDay, on an empty stomach,75 mL, 0 Refill(s) levothyroxine 88 mcg (0.088 mg) oral tablet: 88 mcg, 1 tab(s), Oral, qDay, 0 Refill(s) metoprolol succinate 25 mg oral TABLET extended release: 12.5 mg, 0.5 tab(s), Oral, BID, Do not crush or chew (controlled release), 0 Refill(s) pantoprazole 20 mg oral enteric coated tablet: 20 mg, 1 tab(s), Oral, BIDAC, 0 Refill(s) prednisoLONE (as sodium phosphate) 10 mg oral tablet, disintegratin mg, 1 tab(s), Oral, BID, 7tab(s), 0 Refill(s), Medications (27) Active Scheduled: (9) albuterol 0.083% Soln UD (2.5mg/3 mL) 2.5 mg 3 mL, Inhalation, BIDRT aspirin 81 mg Chewable 81 mg 1 tab(s), Oral, Daily atorvastatin 20 mg tablet 20 mg 1 tab(s), Oral, Daily budesonide 0.5 mg/2 mL Susp UD 0.5 mg 2 mL, Inhalation, BIDRT levothyroxine 150 mcg tablet 150 mcg 1 tab(s), Oral, qDay Nicoderm patch REMOVAL 1 EA, Miscellaneous, q24h nicotine 21 mg/24 hr ER patch 21 mg 1 patch(es), Transdermal, q24h pantoprazole 20 mg EC tablet 20 mg 1 tab(s), Oral, BIDAC Prednisolone ODT 10mg Tablet 10 mg, Oral, BID Continuous: (1) heparin 25,000 unit(s) [12.88 unit(s)/kg/hr] + Dextrose 5% Premix Diluent 250 mL 250 mL, Intravenous, 25 mL/hr PRN: (17) acetaminophen 325 mg Tablet 650 mg 2 tab(s), Oral, q6hr acetaminophen-OXYcodone 325 mg-5 mg Tablet 1 tab(s), Oral, q6hr albuterol - ipratropium 2.5 mg-0.5 mg/3 mL Inhal Milka UD 3 mL, Inhalation, q4hRT dextrose 50% Solution Disp syringe 50 mL 12.5 gram(s) 25 mL, IV Push, AsDirected heparin 5,000 units/mL (1 mL) vial 8,750 unit(s) 1.75 mL, IV Push, q6h heparin 5,000 units/mL (1 mL) vial 7,764 unit(s) 1.55 mL, IV Push, q6h hydralazine 20 mg/mL (1mL) vial 5 mg 0.25 mL, IV Push, q6h magnesium sulfate 4 gram(s)/100mL PMX 4 g 100 mL, IV Piggyback, AsDirected magnesium sulfate 50% (500mg/mL) 6 g 12 mL, IV Piggyback, AsDirected magnesium sulfate PMX 2 g 50 mL, IV Piggyback, AsDirected melatonin 3 mg tablet 3 mg 1 tab(s), Oral, qHS morphine 2 mg/mL 1 mL syringe 2 mg 1 mL, IV Push, q6hr polyethylene glycol 3350 - UD packet 17 gram(s) 15 mL, Oral, qDay potassium chloride (PMX) 20 mEq/100 mL 20 mEq 100 mL, IV Piggyback, AsDirected potassium chloride 20 mEq ER tablet 20 mEq 1 tab(s), Oral, AsDirected potassium chloride 20 mEq ER tablet 40 mEq 2 tab(s), Oral, AsDirected potassium chloride 20 mEq ER tablet 40 mEq 2 tab(s), Oral, AsDirected Problem list: No problem items selected or recorded., Active Problems (1) Tobacco use Histories Past Medical History: No active or resolved past medical history items have been selected or recorded. Family History: No family history items have been selected or recorded. Procedure history: No active procedure history items have been selected or recorded. Social History Social & Psychosocial Habits Alcohol 06/28/2023 Do you ever drink more than intended: No Has anyone been hurt or at risk by your drinking: No Tobacco 06/28/2023 Tobacco Use: 10 or more cigarettes (1/ Type: Cigarettes Started at age: 15 Years . Physical Examination Vital Signs(last 24 hrs) Last Charted Temp Oral36.5 DegC (JUN 29 06:54) Heart Rate Blaclglhl08 bpm (JUN 29 08:50) Resp Rate 20 br/min (JUN 29 06:54) XQJ410 mmHg (JUN 29 08:51) DBP56 mmHg (JUN 29 08:51) General: Alert and oriented. Airway: Normal temporomandibular joint mobility, Normal mouth, Normal throat, Normal neck range of motion, Trachea midline. Mallampati classification: II (soft palate, fauces, uvula visible). Head: Normocephalic. Dentition Evaluation: Intact, Own teeth, Denies loose/chipped teeth. Neck: Supple. Respiratory: Lungs are clear to auscultation, Respirations are non-labored. Cardiovascular: Normal rate, No murmur. Heart Sounds: Normal. Neurologic: Alert, Oriented. Review / Management Results review: Labs (Last four charted values) WBC H 14.3(JUN 28) Hgb L 9.4(JUN 28) Hct L 33.0(JUN 28) Plt 379(JUN 28) Na 138(JUN 28) K 4.3(JUN 28) CO2 30(JUN 28) Cl 102(JUN 28) Cr H 2.13(JUN 28) BUN H 32.0(JUN 28) Glucose 106(JUN 28) Mg 1.8(JUN 28) Phos 4.8(JUN 28) Ca 8.7(JUN 28) PT 12.4(JUN 28) INR 1.1(JUN 28) PTT H 50.5(JUN 28)29.5(JUN 28) . Assessment and Plan [place] [employer] (ASA) physical status classification: Class IV. Anesthetic Preoperative Plan Premedication: intravenous. Anesthetic technique: MAC. Induction: intravenously. Maintenance airway: Mask. Special techniques: Warming device. Special Monitoring. Postoperative pain management: Per surgeon. Risks discussed: nausea, vomiting, headache, sore throat, dental injury, hypotension, allergic reaction, serious complications, Heart Problems, Lung Problems, Stroke, Intraoperative Recall, . Informed consent: signed by patient. Notes: After completion of focused history and physical examination, anesthetic options with their inherent risks and benefits were discussed. Common minor and rare but serious or potentially life-threatening complications were included in this discussion(Specific items discussed: nausea, sore throat, dysphagia, heart problems, lung problems, strokes, heart attacks, intraoperative recall and ). All of the patient's questions were answered. The patient verbalizes understanding of the agreed upon anesthetic plan and agrees to proceed.. Beta Tejinder: Beta Tejinder Taken Within 24 Hrs. Digitally Signed by LAUREN DE SOUZA MD on 06/29/2023 09:[address] [id number] Note* Exam Date Time Procedure Performing Provider Status 06/29/23 8:03 AM Permanent Pacemaker - CV Auth (Verified) [facility] 11-26-2023 Cardiology Consult note Date of Service 06/28/23 Reason for Consultation syncope, 3rd degree AV block Referring Physician Dr Calvert History of Present Illness 52 yr old with CAD s/p PCI (2 years ago), Normal EF, morbid obesity, COPD 4L home, tobacco ongoing,BERT, DVT, transfer from [place] in 3rd degree AV block with severe arnulfo after prsenting with syncope. He was having a cigarette. Ingram dizzy then blacked out. No nausea or diaphoresis. He had a prior syncope as well. His AV block does appear intermittent. He was only on metoprolol 12.5 BID. Patient denies palpitations or rapid heart beat sensation. No dizziness. Dyspnea on exertion (minimal). No orthopnea, PND, rest/exertional chest pain. No significant LE edema or increased abdominal girth. ECG: RBBB/LAHB. Review of Systems Constitutional Symptoms: Denies weight loss/gain, fever/chills, or sweats Integumentary: Denies color changes, rash, sores, or lumps Eyes: Denies vision changes, blurriness, or pain ENT: Denies epistaxis, sore throat, or dysphagia Cardiovascular: See HPI Respiratory: Denies cough, sputum, or hemoptysis Musculoskeletal: Denies new pain, weakness, or swelling Gastrointestinal: Denies nausea, vomiting, GERD, diarrhea, constipation, abdominal pain, or hematemesis Neurological: Denies seizures, coordination issues, or paralysis Genitourinary: Denies dysuria, hematuria, burning, or renal stones Hematologic/Lymphatic: Denies bleeding disorders, night sweats, or tenderness of lymph nodes Psychiatric: Denies recent anxiety or depressive episodes. Physical Exam Vitals and Measurements T: 36.8 C (Oral) TMIN: 36.5 C (Oral) TMAX: 37.2 C (Oral) HR: 92(Monitored) RR: 22 BP: 124/56 SpO2: 97% HT: 186 cm WT: 194.1 kg BMI: 56.1 Weight Dosing Weight: 194.1 kg (06/28/23) General Appearance: Alert and oriented x3, no apparent distress Head: Normocephalic, atraumatic EENT: EOMI, PERRLA, mucous membranes moist Neck: Supple, no thyromegaly. Cardiac: tachy, no sig mrg. Lungs: Clear to auscultation bilaterally, no wheezing, rales, rhonchi. Abdomen: Nondistended, nontender, bowel sounds present. Musculoskeletal: No gross deformities. Extremities: no significant lower extremity edema, no calf tenderness, pedal pulses are present bilaterally Neurological: No focal deficits Skin: Warm, dry, intact Psychiatric: Mood congruent, cooperative Lab Results 06/28 06:50 WBC: 14.3 H Hgb: 9.4 L Hct: 33.0 L Platelet: 379 Neutrophil %: 65.3 Protime: 12.4 PT International Ratio: 1.1 Glucose Level: 106 Sodium Level: 138 Potassium Level: 4.3 BUN: 32.0 H Creatinine Lvl (s): 2.13 H Imaging Results and Diagnostics Echo 06/28/23 Summary: 1. Left ventricle: The cavity size is normal. Wall thickness is mildly increased. The estimated ejection fraction is 60-65%. Regional wall motion abnormalities cannot be excluded due to poor acoustic windows. 2. Right atrium: The estimated right atrial pressure is 3 mm Hg. 3. Pericardium, extracardiac: A trivial pericardial effusion is identified EKG EC06/28/23: SINUS RHYTHM RBBB AND LAFB Electronic Signature: VINCENT CALVERT MD 06/28/2023 17:53:08 Assessment/Plan 52 yr old with CAD s/p PCI (2 years ago), Normal EF, morbid obesity, COPD 4L home, tobacco ongoing,BERT, DVT, transfer from [place] in 3rd degree AV block with severe arnulfo after prsenting with syncope. 1. Syncope. He has 3rd degree AV block. Normal EF. No STEMI. Prior history of syncope. Thus, a pacemaker is indicated as there is no reversible cause for this. Risks/benefits d/w patient who wishes to proceed - DDD-pacemaker - please keep npo after midnight - please hold the pradaxa; heparin off at 4 am 2. COPD 4L. - will request anesthesia for the pacemaker 3. Severe AV conduction disease. As above 4. CAD. Cardiology making appropriate adjestments in antiplatelets 5. morbid obesity. - anesthesia for ppm 6. RA. possible flare up 7. comorbid disease as above thank you for the consult. Lou Abdullahi MD Cardiac Electrophysiology [phone] Lou Abdullahi MD Cardiac Electrophysiology [phone] Problem List/Past Medical History Ongoing No qualifying data Historical No qualifying data Procedure/Surgical History No qualifying data available. Medications Inpatient albuterol 2.5 mg/3 mL (0.083%) inhalation solution, 2.5 mg= 3 mL, Inhalation, BIDRT aspirin 81 mg oral tablet, chewable, 81 mg= 1 tab(s), Oral, Daily budesonide 0.5 mg/2 mL inhalation suspension, 0.5 mg= 2 mL, Inhalation, BIDRT Dextrose 50% IV Push, 12.5 gram(s)= 25 mL, IV Push, AsDirected, PRN DuoNeb, 3 mL, Inhalation, q4hRT, PRN Heparin for IV 25,000 unit(s) [12.88 unit(s)/kg/hr] + Dextrose 5% Premix Diluent 250 mL Heparin HBW Bolus 5000 units/mL, 8750 unit(s)= 1.75 mL, 70 unit(s)/kg, IV Push, q6h, PRN Heparin HBW Bolus 5000 units/mL, 7764 unit(s)= 1.55 mL, 40 unit(s)/kg, IV Push, q6h, PRN hydrALAZINE, 5 mg= 0.25 mL, IV Push, q6h, PRN levothyroxine, 150 mcg= 1 tab(s), Oral, qDay Lipitor, 20 mg= 1 tab(s), Oral, Daily magnesium sulfate for IV bolus, 2 gram(s)= 50 mL, IV Piggyback, AsDirected, PRN magnesium sulfate for IV bolus, 4 gram(s)= 100 mL, IV Piggyback, AsDirected, PRN magnesium sulfate for IV bolus melatonin, 3 mg= 1 tab(s), Oral, qHS, PRN Miralax Powder Packet, 17 gram(s)= 15 mL, Oral, qDay, PRN morphine, 2 mg= 1 mL, IV Push, q6hr, PRN Nicoderm C-Q 21 mg/24 hr transdermal film, extended release, 21 mg= 1 patch(es), Transdermal, q24h nicotine (Nicoderm Patch REMOVAL), 1 EA, Miscellaneous, q24h pantoprazole, 20 mg= 1 tab(s), Oral, BIDAC Percocet 325/5, 1 tab(s), Oral, q6hr, PRN potassium chloride, 20 mEq= 1 tab(s), Oral, AsDirected, PRN potassium chloride, 40 mEq= 2 tab(s), Oral, AsDirected, PRN potassium chloride, 40 mEq= 2 tab(s), Oral, AsDirected, PRN potassium chloride bolus, 20 mEq= 100 mL, IV Piggyback, AsDirected, PRN Tylenol, 650 mg= 2 tab(s), Oral, q6hr, PRN Home aspirin 81 mg oral tablet, chewable, 81 mg= 1 tab(s), Oral, Daily Brilinta (ticagrelor) 90 mg oral tablet, 90 mg= 1 tab(s), Oral, BID levothyroxine 150 mcg (0.15 mg)/5 mL oral solution, 150 mcg= 5 mL, Oral, qDay levothyroxine 88 mcg (0.088 mg) oral tablet, 88 mcg= 1 tab(s), Oral, qDay Lipitor 20 mg oral tablet, 20 mg= 1 tab(s), Oral, Daily metoprolol succinate 25 mg oral TABLET extended release, 12.5 mg= 0.5 tab(s), Oral, BID pantoprazole 20 mg oral enteric coated tablet, 20 mg= 1 tab(s), Oral, BIDAC Pradaxa 75 mg oral capsule, 75 mg= 1 cap(s), Oral, BID prednisoLONE (as sodium phosphate) 10 mg oral tablet, disintegrating, 10 mg= 1 tab(s), Oral, BID Allergies Latex (hives) Tape (rash) multivitamin with iron (rash) penicillin (hives) Social History Alcohol Do you ever drink more than intended: No. Has anyone been hurt or at risk by your drinking: No., 06/28/2023 Tobacco Nicotine Use: 10 or more cigarettes (1/2 pack or more)/day in last 30 days. Type: Cigarettes. Started at age: 15 Years., 06/28/2023 Family History non contributory to current situation Immunizations No qualifying data available. Digitally Signed by LOU ABDULLAHI MD on 06/28/2023 09:[address] [id number] History and physical note Date of Service 06/28/2023 Chief Complaint Chest pain History of Present Illness This is a 52-year-old male with a past medical history significant for diabetes mellitus type 2, chronic hypoxic respiratory failure secondary to COPD on 4 L via nasal cannula, CAD status post RCA stent [2 to 3 years ago, on aspirin, Pradaxa and Brilinta], hypothyroidism, rheumatoid arthritis [not on biologic], tobacco abuse disorder [[id number] smoking history], prior DVT and BERT [noncompliantwith use of CPAP] who presented to the emergency department as a transfer from [facility] dueto concern for complete AV block Per patient, he had walked outside soon after using the bathroom and suddenly started to experiencelightheadedness, dizziness and diaphoresis. He had grabbed the railing to stabilize himself howeverhad a syncopal episode resulting in him falling approximately 5 steps down to the ground and wakingup a few seconds later with significant pain to his left side. Following the fall, the patient was able to ambulate without issues and was oriented without any bowel or urinary incontinence. Fall wasnot witnessed. He does state that he has had several episodes of dizziness in the past but only had an episode which resulted in syncope similar to this approximately 2 weeks ago. Denies chest pain. Denies IV drug use. Denies any new medications or supplement use however he doestake metoprolol 12.5 p.o. twice daily with last dose taken yesterday morning. He was also recently started on a new antibiotic for suspected pneumonia. Denies history of rheumatic fever however he does report that he became septic due to soft tissue injury requiring prolonged hospitalization with intravenous antibiotics. Denies hiking or exposure to ticks. When he arrived via EMS, his heart rate was in the 30s and he was given a triptan with improvement of heart rate to the 50s. EKG showed complete AV block with ventricular escape rhythm at 32 bpm chest x-ray showed patchy opacity at the peripheral of the left lung and right upper lung peripheral opacity as well. No obvious rib fractures were noted. WBC was elevated at 17. Hemoglobin 8.9. Platelet count 318. Creatinine elevated at 2. Review of Systems Negative except for what was mentioned above Physical Exam Vitals and Measurements T: 37.2 C (Oral) HR: 91(Monitored) RR: 24 BP: 158/54 SpO2: 93% HT: 186 cm WT: 194.1 kg BMI: 56.1 Weight Dosing Weight: 194.1 kg (06/28/23) General Appearance: Appears to be stable Head: Atraumatic and normocephalic EENT: EOMI, PERRLA Neck: Difficult to assess JVD given body habitus Cardiac: S1 and S2 normal. Tachycardic at this time Lungs: Poor inspiratory effort Abdomen: Soft, nontender, nondistended. Musculoskeletal: Full range of motion upper and lower extremities. Extremities: + lower extremity nonpitting edema bilaterally. 2+ radial, brachial and pedal pulses bilaterally. Appropriate capillary refill. Neurological: CN II through XII grossly intact. Lab Results No 36 Hour Lab Data Assessment/Plan High degree AV block Syncope Troponin elevation Lactic acidosis Concern for community-acquired pneumonia History of diabetes mellitus type 2, chronic hypoxic respiratory failure, COPD, CAD, hypothyroidism, rheumatoid arthritis, tobacco abuse disorder, BERT High degree AV block It is very likely that patient had significantly increased vagal tone induced by pain from fall which may have contributed to his bradycardia in the setting of underlying conduction delay however EKGdoes show high degree AV block. With history of stent to the RCA, there is a concern that this may be ischemic in etiology however would expect more significant troponin elevation with symptoms of angina which patient is denying at present. This degree of AV blockade from his stable dose of metoprolol for several years is unlikely. If no reversible causes are identified, patient will likely need a permanent pacemaker vs HOME ECONOMIST-D placed given he has had 2 syncopal episodes Hold all AV silvia blockade agents and anticholinergic medications Patient currently hemodynamically stable with heart rate within normal limits however if he becomeshypotensive, will start dopamine drip EP has been consulted. We appreciate their assistance in the care of this patient Echocardiogram pending TSH, D-dimer and blood cultures pending Syncope CT head ordered to rule out intracranial bleed particularly because patient is on aspirin, Brilintaand Pradaxa at home. At this time, pradaxa and brillinta are being held given that it has been [id number] since stent placement Concern for community-acquired pneumonia Will start on Rocephin. Urine Legionella and Streptococcus pneumonia have been ordered. If positive, can cover for atypicals. Will hold off on starting azithromycin for now due to concern for QTc prolongation Problem List/Past Medical History Ongoing No qualifying data Historical No qualifying data Procedure/Surgical History No qualifying data available. Medications Home Medications (9) Active aspirin 81 mg oral tablet, chewable 81 mg = 1 tab(s), Oral, Daily Brilinta (ticagrelor) 90 mg oral tablet 90 mg = 1 tab(s), Oral, BID levothyroxine 150 mcg (0.15 mg)/5 mL oral solution 150 mcg = 5 mL, Oral, qDay levothyroxine 88 mcg (0.088 mg) oral tablet 88 mcg = 1 tab(s), Oral, qDay Lipitor 20 mg oral tablet 20 mg = 1 tab(s), Oral, Daily metoprolol succinate 25 mg oral TABLET extended release 12.5 mg = 0.5 tab(s), Oral, BID pantoprazole 20 mg oral enteric coated tablet 20 mg = 1 tab(s), Oral, BIDAC Pradaxa 75 mg oral capsule 75 mg = 1 cap(s), Oral, BID prednisoLONE (as sodium phosphate) 10 mg oral tablet, disintegrating 10 mg = 1 tab(s), Oral, BID Allergies Latex (hives) Tape (rash) multivitamin with iron (rash) penicillin (hives) Social History Alcohol Do you ever drink more than intended: No. Has anyone been hurt or at risk by your drinking: No., 06/28/2023 Tobacco Nicotine Use: 10 or more cigarettes (1/2 pack or more)/day in last 30 days. Type: Cigarettes. Started at age: 15 Years., 06/28/2023 Immunizations No qualifying data available. Code Status Code Status - Ordered -- 06/28/23 4:33:00 EST, Full Code, Constant Order Digitally Signed by KAILEE DONOVAN MD on 06/28/2023 08:53 AM Digitally Signed by KAILEE DONOVAN MD on 06/28/2023 08:54 AM Digitally Signed by KAILEE DONOVAN MD on 06/28/2023 09:[address] [id number] NoteSINUS RHYTHM RBBB AND LAFB Electronic Signature: VINCENT CALVERT MD 06/28/2023 17:53:08[facility] 11-26-2023 Evaluation + Plan noteExtracted from: Title:History and Physical Author:SHERRI DONOVAN MD Date:06/28/23 High degree AV block Syncope Troponin elevation Lactic acidosis Concern for community-acquired pneumonia History of diabetes mellitus type 2, chronic hypoxic respiratory failure, COPD, CAD, hypothyroidism, rheumatoid arthritis, tobacco abuse disorder, BERT High degree AV block It is very likely that patient had significantly increased vagal tone induced by pain from fall which may have contributed to his bradycardia in the setting of underlying conduction delay however EKG does show high degree AV block. With history of stent to the RCA, there is a concern that this may be ischemic in etiology however would expect more significant troponin elevation with symptoms of angina which patient is denying at present. This degree of AV blockade from his stable dose of metoprolol for several years is unlikely. If no reversible causes are identified, patient will likely need a permanent pacemaker vs HOME ECONOMIST-D placed given he has had 2 syncopal episodes Hold all AV silvia blockade agents and anticholinergic medications Patient currently hemodynamically stable with heart rate within normal limits however if he becomes hypotensive, will start dopamine drip EP has been consulted. We appreciate their assistance in the care of this patient Echocardiogram pending TSH, D-dimer and blood cultures pending Syncope CT head ordered to rule out intracranial bleed particularly because patient is on aspirin, Brilinta and Pradaxa at home. At this time, pradaxa and brillinta are being held given that it has been over 1yr since stent placement Concern for community-acquired pneumonia Will start on Rocephin. Urine Legionella and Streptococcus pneumonia have been ordered. If positive, can cover for atypicals. Will hold off on starting azithromycin for now due to concern for QTc prolongation Addendum by ESTRADA CALVERT MD on June 28, 2023 18:21:48 EST I have personally seen, examined, and evaluated the patient on the encounter date. I have reviewed the fellow s documentation and agree with the fellow s findings and plan as documented, unless otherwise stated. Patient transferred from [place] where he previously has his RCA stent. He has sycope in setting of complete heart block, he is on beta-blockers but only 12.5 BID, this would not explain it. He has significant conduction at baseline with a bifascicular block. This is not an ischemic event, his troponin was slightly above normal and is currently now normal, I would not expect his complete heart block to resolve without revascularization (and an almost normal troponin). Consulted EP for PPM. Was apparently on triple therapy with brilinta and pradaxa, will stop pradaxa (Hx of DVT) and start HBW. Stop brilinta (stent was a couple years ago), continue aspirin. of note, ESR >130, hx of RA, consult hospitalist for flare evaluation. Future Appointments Appointment Date:07/14/2023 10:00:00 AM Scheduled Provider: Location:[facility] Appointment Type:CV Incision Check Appointment Date:09/28/2023 10:00:00 AM Scheduled Provider: Location:[facility] Appointment Type:CV Office Procedure ICD Appointment Date:12/30/2023 01:15:00 PM Scheduled Provider: Location:[facility] Appointment Type:CV Remote Procedure [facility] 11-26-2023 Note* Exam Date Time Procedure Performing Provider Status 06/28/23 12:06 PM Echocardiogram, Adult - CV Auth (Verified) [facility] 11-26-2023 Note. MICRO - Microbiology PROCEDURE: Streptococcus Pneumoniae Urine Antig [^1 *1] SOURCE: Urine, Clean Catch BODY SITE: COLLECTED DATE/TIME: 06/28/2023 07:51 EST RECEIVED DATE/TIME: 06/28/2023 09:25 EST START DATE/TIME: 06/28/2023 09:25 EST FREE TEXT SOURCE: FINAL REPORTS Final Report [] Verified Date/Time/Personnel: 06/28/2023 09:50 EST Presumptive negative for pneumococcal pneumonia, suggesting no current or recent pneumococcal infection. Infection due to Strep pneumoniae cannot be ruled out since the antigen present in the sample may be below the detection limit of the test. Interpretive Data ^1: Streptococcus Pneumoniae Urine Antig This test has not been evaluated on patients taking antibiotics for greater than 24 hours or on patients who have recently completed an antibiotic regimen. The accuracy of this test has not been proven in young children. Performing Locations *1: This test was performed at: [facility], [address] [place] [address], [id number] , [facility] ([place])06-28-2023 Note. MICRO - Microbiology PROCEDURE: Legionella Urine Ag [*1] SOURCE: Urine BODY SITE: COLLECTED DATE/TIME: 06/28/2023 07:51 EST RECEIVED DATE/TIME: 06/28/2023 09:25 EST START DATE/TIME: 06/28/2023 09:25 EST FREE TEXT SOURCE: FINAL REPORTS Final Report [] Verified Date/Time/Personnel: 06/28/2023 09:50 EST Presumptive negative for L. pneumophila serogroup 1 antigen in urine, suggesting no recent or current infection. Legionnaire's disease cannot be ruled out since other serogroups and species may also cause disease. Performing Locations *1: This test was performed at: [facility], [address] [place] [address], [facility] , [facility] ([place])06-28-2023 Note* Exam Date Time Procedure Performing Provider Status 06/28/23 10:19 AM VL Venous US/Doppler Both Legs(for DVT) Auth (Verified) [facility] 11-26-2023 Note ORIGINAL EXAMINATION: CT OF THE HEAD WITHOUT CONTRAST 06/28/2023 6:43 am TECHNIQUE: CT of the head was performed without the administration of intravenous contrast. Automated exposure control, iterative reconstruction, and/or weight based adjustment of the mA/kV was utilized to reduce the radiation dose to as low as reasonably achievable. COMPARISON: None. HISTORY: ORDERING SYSTEM PROVIDED HISTORY: Reason for Exam: pt fell, syncopal episode fall FINDINGS: BRAIN/VENTRICLES: There is no acute intracranial hemorrhage, mass effect or midline shift. No abnormal extra-axial fluid collection. The groves-white differentiation is maintained without evidence of an acute infarct. There is no evidence of hydrocephalus. ORBITS: The visualized portion of the orbits demonstrate no acute abnormality. SINUSES: The visualized paranasal sinuses and mastoid air cells demonstrate no acute abnormality. SOFT TISSUES/SKULL: No acute abnormality of the visualized skull or soft tissues. IMPRESSION: No acute intracranial abnormality. Interpreted by: Altaf Yang MD Preliminary Report By: Altaf Yang MD Electronically signed By Altaf Yang MD Dictated Date: 06/28/2023 7:04:06 AM Prelim Date: 06/28/2023 7:05:40 AM Sign Date: 06/28/2023 7:05:40 AM Ordering Provider[facility] History and physical note Date of Service 06/28/2023 Chief Complaint Chest pain History of Present Illness This is a 52-year-old male with a past medical history significant for diabetes mellitus type 2, chronic hypoxic respiratory failure secondary to COPD on 4 L via nasal cannula, CAD status post RCA stent [2 to 3 years ago, on aspirin, Pradaxa and Brilinta], hypothyroidism, rheumatoid arthritis [not on biologic], tobacco abuse disorder [31-[id number] smoking history], prior DVT and BERT [noncompliantwith use of CPAP] who presented to the emergency department as a transfer from [facility] dueto concern for complete AV block Per patient, he had walked outside soon after using the bathroom and suddenly started to experiencelightheadedness, dizziness and diaphoresis. He had grabbed the railing to stabilize himself howeverhad a syncopal episode resulting in him falling approximately 5 steps down to the ground and wakingup a few seconds later with significant pain to his left side. Following the fall, the patient was able to ambulate without issues and was oriented without any bowel or urinary incontinence. Fall wasnot witnessed. He does state that he has had several episodes of dizziness in the past but only had an episode which resulted in syncope similar to this approximately 2 weeks ago. Denies chest pain. Denies IV drug use. Denies any new medications or supplement use however he doestake metoprolol 12.5 p.o. twice daily with last dose taken yesterday morning. He was also recently started on a new antibiotic for suspected pneumonia. Denies history of rheumatic fever however he does report that he became septic due to soft tissue injury requiring prolonged hospitalization with intravenous antibiotics. Denies hiking or exposure to ticks. When he arrived via EMS, his heart rate was in the 30s and he was given a triptan with improvement of heart rate to the 50s. EKG showed complete AV block with ventricular escape rhythm at 32 bpm chest x-ray showed patchy opacity at the peripheral of the left lung and right upper lung peripheral opacity as well. No obvious rib fractures were noted. WBC was elevated at 17. Hemoglobin 8.9. Platelet count 318. Creatinine elevated at 2. Review of Systems Negative except for what was mentioned above Physical Exam Vitals and Measurements T: 37.2 C (Oral) HR: 91(Monitored) RR: 24 BP: 158/54 SpO2: 93% HT: 186 cm WT: 194.1 kg BMI: 56.1 Weight Dosing Weight: 194.1 kg (06/28/23) General Appearance: Appears to be stable Head: Atraumatic and normocephalic EENT: EOMI, PERRLA Neck: Difficult to assess JVD given body habitus Cardiac: S1 and S2 normal. Tachycardic at this time Lungs: Poor inspiratory effort Abdomen: Soft, nontender, nondistended. Musculoskeletal: Full range of motion upper and lower extremities. Extremities: + lower extremity nonpitting edema bilaterally. 2+ radial, brachial and pedal pulses bilaterally. Appropriate capillary refill. Neurological: CN II through XII grossly intact. Lab Results No 36 Hour Lab Data Assessment/Plan High degree AV block Syncope Troponin elevation Lactic acidosis Concern for community-acquired pneumonia History of diabetes mellitus type 2, chronic hypoxic respiratory failure, COPD, CAD, hypothyroidism, rheumatoid arthritis, tobacco abuse disorder, BERT High degree AV block It is very likely that patient had significantly increased vagal tone induced by pain from fall which may have contributed to his bradycardia in the setting of underlying conduction delay however EKGdoes show high degree AV block. With history of stent to the RCA, there is a concern that this may be ischemic in etiology however would expect more significant troponin elevation with symptoms of angina which patient is denying at present. This degree of AV blockade from his stable dose of metoprolol for several years is unlikely. If no reversible causes are identified, patient will likely need a permanent pacemaker vs HOME ECONOMIST-D placed given he has had 2 syncopal episodes Hold all AV silvia blockade agents and anticholinergic medications Patient currently hemodynamically stable with heart rate within normal limits however if he becomeshypotensive, will start dopamine drip EP has been consulted. We appreciate their assistance in the care of this patient Echocardiogram pending TSH, D-dimer and blood cultures pending Syncope CT head ordered to rule out intracranial bleed particularly because patient is on aspirin, Brilintaand Pradaxa at home. At this time, pradaxa and brillinta are being held given that it has been ryse0sg since stent placement Concern for community-acquired pneumonia Will start on Rocephin. Urine Legionella and Streptococcus pneumonia have been ordered. If positive, can cover for atypicals. Will hold off on starting azithromycin for now due to concern for QTc prolongation Problem List/Past Medical History Ongoing No qualifying data Historical No qualifying data Procedure/Surgical History No qualifying data available. Medications Home Medications (9) Active aspirin 81 mg oral tablet, chewable 81 mg = 1 tab(s), Oral, Daily Brilinta (ticagrelor) 90 mg oral tablet 90 mg = 1 tab(s), Oral, BID levothyroxine 150 mcg (0.15 mg)/5 mL oral solution 150 mcg = 5 mL, Oral, qDay levothyroxine 88 mcg (0.088 mg) oral tablet 88 mcg = 1 tab(s), Oral, qDay Lipitor 20 mg oral tablet 20 mg = 1 tab(s), Oral, Daily metoprolol succinate 25 mg oral TABLET extended release 12.5 mg = 0.5 tab(s), Oral, BID pantoprazole 20 mg oral enteric coated tablet 20 mg = 1 tab(s), Oral, BIDAC Pradaxa 75 mg oral capsule 75 mg = 1 cap(s), Oral, BID prednisoLONE (as sodium phosphate) 10 mg oral tablet, disintegrating 10 mg = 1 tab(s), Oral, BID Allergies Latex (hives) Tape (rash) multivitamin with iron (rash) penicillin (hives) Social History Alcohol Do you ever drink more than intended: No. Has anyone been hurt or at risk by your drinking: No., 06/28/2023 Tobacco Nicotine Use: 10 or more cigarettes (1/2 pack or more)/day in last 30 days. Type: Cigarettes. Started at age: 15 Years., 06/28/2023 Immunizations No qualifying data available. Code Status Code Status - Ordered -- 06/28/23 4:33:00 EST, Full Code, Constant Order Digitally Signed by KAILEE DONOVAN MD on 06/28/2023 08:53 AM Digitally Signed by KAILEE DONOVAN MD on 06/28/2023 08:54 AM Digitally Signed by KAILEE DONOVAN MD on 06/28/2023 09:[address] [id number] Note ORIGINAL EXAMINATION: ONE XRAY VIEW OF THE CHEST 06/28/2023 6:25 am COMPARISON: None. HISTORY: ORDERING SYSTEM PROVIDED HISTORY: Reason for Exam: Chest Pain FINDINGS: The heart is mildly enlarged. There are streaky infiltrates in the mid and lower lung zones bilaterally. No large pleural effusion is present. There is no pneumothorax. IMPRESSION: Streaky bilateral lung infiltrates may be pulmonary edema or pneumonia. Mild cardiomegaly. Interpreted by: lAtaf Yang MD Preliminary Report By: Altaf Yang MD Electronically signed By Altaf Yang MD Dictated Date: 06/28/2023 6:38:17 AM Prelim Date: 06/28/2023 6:39:13 AM Sign Date: 06/28/2023 6:39:13 AM Ordering Provider: [facility]11-26-2023 NoteSINUS RHYTHM RBBB AND LAFB Electronic Signature: DINA OLIVIER MD 06/28/2023 16:01:20[facility] 09-18-2023 Miscellaneous Notes* SN PRN - Lacey Hernandez RN - 04/20/2023 5:00 PM EDT SITUATION: Half-Way PRN visit completed today. spouse and daughter also present during today's visit. patient reports the following: Allergies--reviewed Medications--reviewed current medications. Prednisone taper per pt, MD instructed pt on dosing at this time. Falls--None BACKGROUND: Reason for Home Care: wound care, COPD Reason for PRN Visit: labs ASSESSMENT: SN greeted at door by caregiver. Upon entrance patient found in chair Patient appears in no acute distress. Patient/CG concerns verbalized today: Pt reports not feeling well, decreased appetite, hives that come and go , general malaise. Vitals (see flow sheet for details): WDL except: Temp: 99.8, Heart Rate: 101, Blood Pressure: 92/50and Pulse Ox: 93% on 3L SN findings today: Pt sitting in chair upon SN arrival. He reports feeling better today but has ongoing issues since Thursday that previous SN has d/w MD. Pt has had medication adjustments and labs ordered for further monitoring. Dyspnea noted with exertion. Chronic hard edema noted in BLE, pink in color. Pt reports he ate today, but not back to baseline. Denies nausea this date. Only taking essential medications as directed by MD at this time. Wearing 4L NC, SpO2 93%. VS concerning. Pt educated regarding dehydration - when to report and seek medical attention. Labs drawn per orders and pt tolerated well - transported to [facility] for processing. MD made aware of VS. See intervention summary for education details and skills performed. RECOMMENDATION: Next visit to focus on (be specific): f/u labs, c/p check, wound care. [facility] Miscellaneous Notes* SN Routine - Mely Roblero RN - 04/19/2023 11:05 AM EDT SITUATION: Half-Way routine visit completed today. mother also present during today's visit. patient and caregiver reports the following: Allergies--reviewed Medications--reviewed current medications Falls--None DME-Reviewed BACKGROUND: Reason for Home Care: wound care ASSESSMENT: SN greeted at door by patient utilizing cane and demonstrates stable gait. Patient appears in no acute distress. Vitals (see flow sheet for details): stable SN findings today: Pt presents today in his chair. He express he has not been feeling well. He express he has no appetite, no taste and feeling overall week. Pt had a OTC COVOD test in the home test came up negative. .t performed during SN visit. Pt has red blotchy intchy hives on his arms and trunk. He express he has been aching all over , In reviewing the recent batch of med refills he recevied from his pharmacy he has 2 new meds he has started on . These are meds he formally was taking but stopped d/t financial reasons. Omeprazole and Pantoprazole. Pt has orders for lab draws tomorrow CM Viviana Elias made aware as this nurse is not working tomorrow. educated Pt to call MD on thursdayand speak with her regarding which and how much of each med she wants him to take. Educated on assuring hydration, drinkning low sugar hydration drinks. bland frequent small meals, if gets any worse to call MD/[facility] or be seen at ED. Pt expressed understanding. See intervention summary for education details. Patient demonstrated a need for further skilled SN services for chronic disease management & education, medication education and wound/skin care. Current Discharge plan: self-care and family support RECOMMENDATION: Next visit to focus on (be specific): wound care [facility]23 Miscellaneous Notes* SN Recert - Mely Roblero RN - 04/15/2023 12:05 PM EDT SITUATION: Half-Way Recert visit completed today. Mother also present during today's visit. patient reports the following: Allergies--reviewed Medications--reviewed current medications Falls--None DME-Reviewed BACKGROUND: Reason for Home Care: wound care ASSESSMENT: SN greeted at door by patient utilizing cane and demonstrates stable gait. Patient appears in no acute distress. Patient lives at home with mother. Home environment: clean, uncluttered and has pets: dogs and cat. Vitals (see flow sheet for details): stable SN findings today: Pt presents today in his home. His mother and brother are present. He expresses he is exhausted today because See intervention summary for education details and skills performed. Visit frequency, plan of care, and goals & dates reviewed and updated with patient and plan of care agreed upon. Home care book updated. Patient demonstrated a need for further skilled SN services for chronic disease management & education, medication education and wound/skin care RECOMMENDATION: Visit Frequency: 1x4 Need for additional services: Patient agreeable to OT referrals. Patient declined N/A referrals. Additional concerns to be followed up on: NONE Next visit to focus on (be specific): wound care documented in this encounterTr[facility]09-12-2023 Miscellaneous Notes* OT DISCHARGE VISIT NOTE - Kaitlin Antonio OT/Natan - 04/14/2023 12:55 PM EDT SITUATION: OT discharge mother present during today's visit. patient reports the following since the last homecare visit: medications/allergies--no changes, no fall. patient reports he is doing well and no issues. BACKGROUND: Diagnoses or reason for Home Care: [facility] on 03-[facility]34 following treatment for scrotal edema, cellulitis, Hypervolemia ASSESSMENT: Focus of visit: BACKGROUND: Diagnoses or reason for Home Care: [facility] on [facility]34 following treatment for scrotal edema, cellulitis, Hypervolemia. Pertinent referral information or other diagnoses that may affect plan of care: Perianal abscess Past medical history: COPD obesity, hypoglycemia syndrome, Hypercholesteremia, IBS, anxiety, depression. Pt is on 4L O2 for several years Weight Bearing or Precautions: falls, oxygen Occupational therapy discharged: goals achieved. Functional Performance at discharge: pt is indep with all personal care and bathroom transfers is able to get simple meals/snacks indep Plan of care, goals, and discharge reviewed and agreed upon with patient/caregiver. RECOMMENDATION: Instructions include: discharged from OT and is active with SN. Post dc recommendations: continue with use of cane See intervention summary for intervention/education details. documented in this encounterTr[facility]09-11-2023 Miscellaneous Notes* SN Routine - Mely Roblero RN - 04/13/2023 8:24 AM EDT SITUATION: Half-Way routine visit completed today. mother also present during today's visit. patient reports the following: Allergies--reviewed Medications--reviewed current medications Falls--None DME-Reviewed and added to chart BACKGROUND: Reason for Home Care: Wound care ASSESSMENT: SN greeted at door by patient utilizing cane and demonstrates stable gait. Patient appears in no acute distress. Vitals (see flow sheet for details): stable SN findings today: Pt presents today in his home he is using a cane for assist his mother is present. He expresses over the weekend the area to his scrotum ruptured a large amount of yellow bloody drainage . SN note a contninued small hole o side of scrotum drainaing yellow thick drainage this visit. pt cotnin ues to wear his testical support underwear and has noted a reduction in pain and swelling to this area.. He took his weight this visit and was at 453 which he expresses he was 486 in thehospital. SN encouraged continued weight and edema management, wound care and taking emdss as directed, pt expressed understanding. See intervention summary for education details. Patient demonstrated a need for further skilled SN services for chronic disease management & education, medication education and wound/skin care. Current Discharge plan: self-care and family support RECOMMENDATION: Next visit to focus on (be specific): wound care recert documented in this encounterTr[facility]09-08-2023 Miscellaneous Notes* OT ROUTINE / CASE MGMT VISIT - Nevaeh Moser COTA/L - 04/10/2023 12:26 PM EDT SITUATION: Pt. seen for ARREDONDO Routine Visit. Mother present during today's visit. patient reports the following since the last homecare visit: medications/allergies--no changes, no fall. patient reports He has been smoking outside and is working on mobility/activity level. He can perform all ADLs and transfers. BACKGROUND: Diagnoses or reason for Home Care: [facility] on [facility]34 following treatment for scrotal edema, cellulitis, Hypervolemia. Pertinent referral information or other diagnoses that may affect plan of care: Perianal abscess Past medical history: COPD obesity, hypoglycemia syndrome, Hypercholesteremia, IBS, anxiety, depression. Pt is on 4L O2 for several years Weight Bearing or Precautions: falls, oxygen ASSESSMENT: Focus of Visit O2 safety, energy conservation,daily tasks. Patient identified goals to get up and moving more Plan of care, goals, and visit frequency reviewed and agreed upon with patient and/or caregiver. See intervention summary for intervention/education details. Current Discharge Plan: remain in community with/without caregiver support. Anticipate discharge by 04/17/2023 RECOMMENDATION: Next visit to focus on Pt. to be seen next by OTR/L for a discharge visit. documented in this encounterTr[facility]09-05-2023 Miscellaneous Notes* SN Routine - Mely Roblero RN - 04/07/2023 8:26 AM EDT SITUATION: Half-Way routine visit completed today. only patient also present during today's visit. patient reports the following: Allergies--reviewed Medications--reviewed current medications Falls--None DME-Reviewed and added to chart BACKGROUND: Reason for Home Care: Wound care, edema ASSESSMENT: SN greeted at door by patient utilizing cane and demonstrates stable gait. Patient appears in no acute distress. Vitals (see flow sheet for details): stable SN findings today: Pt presents today in his home he uses a cane for assist. he is wearing his new support socks and support underwear. He expresses having reduced drainage from his open area in his scrotum. Pt reinforced on continued wound care, edema management, O2 safety and diet management. pt expressed understanding. See intervention summary for education details. Patient demonstrated a need for further skilled SN services for chronic disease management & education, medication education, wound/skin care and safety. Current Discharge plan: self-care and family support RECOMMENDATION: Next visit to focus on (be specific): wound care? how is diet going? documented in this encounterTr[facility]09-01-2023 Miscellaneous Notes* Telephone Encounter - Marianne Simental - 04/03/2023 11:29 AM EDT There has been a delay in service for Home Care PT Evaluation for this patient due to schedule conflict. Patient was notified on 04/03/23. Verbally declining PT services at this time. Dillon Norris DOoffice notified. Thank you for this referral, please contact us with any questions. Marianne Simental 04/03/23 11:34 am documented in this encounterTr[facility]08-31-2023 Miscellaneous Notes* SN Routine - Mely Roblero RN - 04/02/2023 8:45 AM EDT SITUATION: Half-Way routine visit completed today. Mother also present during today's visit. patient reports the following: Allergies--reviewed Medications--reviewed current medications Falls--None DME-Reviewed BACKGROUND: Reason for Home Care: ASSESSMENT: SN greeted at door by patient utilizing cane and demonstrates stable gait. Patient appears in no acute distress. Vitals (see flow sheet for details): stable SN findings today: Pt presents today in his home he is using a cane for assist . his mother is present he express he notes an increase in edema to his testicles, but notes not pain, His testicles arenot red or hot with a minima edema noted there is a small open area that is draining yellow drainage's. SN educated on clean dry dressing for drainage taking ends as directed and taking PRN dietetics, fluid and diet management Pt expressed understanding See intervention summary for education details. Patient demonstrated a need for further skilled SN services for chronic disease management & education, medication education and wound/skin care. Current Discharge plan: self-care and family support RECOMMENDATION: Next visit to focus on (be specific): how is drainage? documented in this encounterTr[facility]08-30-2023 Miscellaneous Notes* OT EVALUATION/REASSESSMENT/RECERT - Fabienne Parmar OT - 04/01/2023 9:45 AM EDT SITUATION: Pt seated in recliner upon arrival. Mother and brother present during today's visit. patient reports the following since the last homecare visit: medications/allergies--no changes, no fall. BACKGROUND: Diagnoses or reason for home care: [facility] on [facility] following treatment for scrotal edema, cellulitis, Hypervolemia. Pertinent referral information or other diagnoses that may affect plan of care: Perianal abscess Past medical history: COPD obesity, hypoglycemia syndrome, Hypercholesteremia, IBS, anxiety, depression. Pt is on 4L O2 for several years Weight Bearing or Precautions: falls, oxygen ASSESSMENT: [facility]. Reviewed and explained homecare services. Plan of care, goals and visit frequency developed, reviewed, and agreed upon with patient and/or caregiver. Patient identified goals: To be able to get off the walker and get back on my cane . Patient will benefit from continued occupational therapy to address the following deficits functional activity including I/ADLs, functional transfers and energy conservation as evidenced by score on Modified Jenn Index 50/100. Current Discharge Plan:remain in community with/without caregiver support. Anticipate discharge by 04/16/23 RECOMMENDATION: Plan for next visit to focus on energy conservation, functional transfers, oxygen safety. See intervention summary for intervention/education details. documented in this encounterTr[facility]08-28-2023 Miscellaneous Notes* HH SN FAITH - Mely Roblero RN - 03/30/2023 2:25 PM EDT SITUATION: Half-Way FAITH visit completed today. mother and niece also present during today's visit. patient reports the following: Allergies--reviewed Medications--reviewed current medications Falls--None DME-Reviewed BACKGROUND: Initial reason for home care: wound care, FAITH today due to Discharged/Referral from [facility] on [facility] following treatment for scrotal edema, cellulitis, Hypervolemia. Pertinent referral information or other diagnoses that may affect plan of care: Perianal abscess ASSESSMENT: SN greeted at door by caregiver. Upon entrance patient found in chair. Patient appears in no acute distress. Patient lives at home with mother. Home environment: clean and has pets: dogs and cat. Vitals (see flow sheet for details): stable SN findings today: Pt presents today in his chair his mother is present, she is recovering from a Femur FX and has no ability to assist him at this time. Pt express he was injured during his stay at the hospital and is currently wearing a knee immobilizer, and he is now using a walker instead of a cane for ambulation assist. he express he had to use his lift for getting into his home that he was not able to go up and down the stairs. he has reduced ability to care for himself and an increased fall risk. pt niece is stating she will be there in the home during the day to assist her grandmotherand Pt has she is able. Pt diagnosis papers from [facility] express pt has a cellulitis diagnosis, hypervolemia diagnosis resulting in his testicular swelling. pt has a script for an atb thathe received during today's visit and he started taking. educated pt on taking atb as directed trying crackers or light meal with atb for stomach upset. educated on home safety wearing his immobilizerand using his walker for assist. educated on fluid overload, taking diuretic as directed, monitoring fluid and sodium intake, and reporting weight gain of more that 3 lbs in 1 day. Pt expresses understanding See intervention summary for education details and skills performed. Pt express he has not been able to cleanse himself and he is unable to get to the bedroom for sn to change his dressing to his wounds at this time. He agrees to allow Sn to assess his wounds at next visit. Plan of Care, progress towards goals, and visit frequency reviewed & updated with caregiver andagreed with plan of care. Home Care book updated. Patient demonstrated a need for further skilled SN services for chronic disease management & education, medication education, wound/skin care and safety. RECOMMENDATION: Visit Frequency: 2x3 Need for additional services: Patient agreeable to PT and OT referrals. Patient declined N/A referrals. Additional concerns to be followed up on: NONE Next visit to focus on (be specific): wound care, fluid management documented in this encounterTr[facility]08-25-2023 Miscellaneous Notes* CARE COORDINATION - Rigoberto Romano RN - 03/27/2023 10:00 AM EDT Patient transferred to [facility] for excess fluid/edema, had stop taking Lasix. is aware. documented in this encounterTr[facility]08-24-2023 Miscellaneous Notes* SN Routine - Mely Roblero RN - 03/26/2023 9:39 AM EDT SITUATION: Half-Way routine visit completed today. family also present during today's visit. patient reports the following: Allergies--reviewed Medications--reviewed current medications Falls--None DME-Reviewed BACKGROUND: Reason for Home Care: wound care ASSESSMENT: SN greeted at door by caregiver. Upon entrance patient found in chair Patient appears in no acute distress. Vitals (see flow sheet for details): stable SN findings today: Pt presents today in his chair his family is present he is using a cane for assist he express his testicles are more painfull than before and her notes he has had some drainge fromhis right groin , Sn noted testicles to be increased in size redness hard to the touch with a hole noted to the right side that has a large amount of yellow drainage that comes out when touched, his groin is red warm and firm going down the side of his right leg. Sn notified spoke with Selena at the office they advise Pt be seen at the ED right away. MD office returned call orders from MD to [facility] ED for eval and [place] agrees to accept Pt transport by family to [place] ED for eval and tx. made aware of SN not pablito to get vitals on Pt d/t his anxiety and moving around to much. pt left with brother prior to SN departure. Nurse to nurse report done to Leann DOVER at [place] ED. See intervention summary for education details. Patient demonstrated a need for further skilled SN services for chronic disease management & education, medication education and wound/skin care. Current Discharge plan: self-care and family support RECOMMENDATION: Next visit to focus on (be specific): what did ed say? documented in this encounterTr[facility]08-22-2023 Miscellaneous Notes* SN Routine - Mely Roblero RN - 03/24/2023 8:12 AM EDT SITUATION: Half-Way routine visit completed today. only patient also present during today's visit. patient reports the following: Allergies--reviewed Medications--reviewed current medications Falls--None DME-Reviewed and added to chart BACKGROUND: Reason for Home Care: wound care ASSESSMENT: SN greeted at door by patient signaled from chair to enter home Patient appears in no acute distress. Vitals (see flow sheet for details): stable SN findings today: Pt presents today in his home he is using a cane for assist his mother is home from surgery but unable to assist him at this time. pt express he had a large amount of drainge this am from his teticle area he express he showered and applied a clean dry dressing this am. alberto xpressshe will assure he waits fro SN to change dressing next visit. See intervention summary for education details. Patient demonstrated a need for further skilled SN services for chronic disease management & education, medication education and wound/skin care. Current Discharge plan: self-care and family support RECOMMENDATION: Next visit to focus on (be specific): wound care documented in this encounterTr[facility]08-19-2023 Miscellaneous Notes* SN Routine - Mely Roblero RN - 03/21/2023 8:27 AM EDT SITUATION: Half-Way routine visit completed today. only patient also present during today's visit. patient reports the following: Allergies--reviewed Medications--reviewed current medications Falls--None DME-Reviewed BACKGROUND: Reason for Home Care: wound care ASSESSMENT: SN greeted at door by patient utilizing cane and demonstrates stable gait. Patient appears in no acute distress. Vitals (see flow sheet for details): stable SN findings today: Pt presents today in his chair, he is home alone today. Wound care done this visit. pt tolerated well. reinforced continued skin care Expressed understanding See intervention summary for education details. Patient demonstrated a need for further skilled SN services for chronic disease management & education, medication education and wound/skin care. Current Discharge plan: self-care and family support RECOMMENDATION: Next visit to focus on (be specific): wound care documented in this encounterTr[facility]08-18-2023 Miscellaneous Notes* SN Routine - eMly Roblero RN - 03/20/2023 1:43 PM EDT SITUATION: Half-Way routine visit completed today. brother also present during today's visit. patient reports the following: Allergies--reviewed Medications--reviewed current medications Falls--None DME-Reviewed and added to chart BACKGROUND: Reason for Home Care: wound care ASSESSMENT: SN greeted at door by caregiver. Upon entrance patient found in chair Patient appears in no acute distress. Vitals (see flow sheet for details): stable SN findings today: pt presents today in his home his brother is present he express he went to the ED last night by orders of his MD he express she wanted him to get IV atb. he express when he got there they ran mseveral testes and diagnosed him with fungal infection on the skin and sent him home with topical fungal powder. Alberto xpress his testicles continue to be swollen and pain full. He express he has not bathed today yet and does not want SN to dres wounds he request SN return tomorrow and after his shower dress wounds and apply topical powder to his testicles. Pt express the ED MD suggested he get underwear with support in them. he states after he pays his bills if he has money left overhe will do that. His mother is not present at the visit Pt express at the hospital last night she was walking him in and fell and broke her hip in the parking lot. he express she is to have surgery tomorrow morning. See intervention summary for education details. Patient demonstrated a need for further skilled SN services for chronic disease management & education, medication education and wound/skin care. Current Discharge plan: self-care and family support RECOMMENDATION: Next visit to focus on (be specific): wound care documented in this encounterTr[facility]08-15-2023 Miscellaneous Notes* SN Routine - Mely Roblero RN - 03/17/2023 8:22 AM EDT SITUATION: Half-Way routine visit completed today. Mother also present during today's visit. patient reports the following: Allergies--reviewed Medications--reviewed current medications Falls--None DME-Reviewed BACKGROUND: Reason for Home Care: wound care ASSESSMENT: SN greeted at door by caregiver. Upon entrance patient found in chair Patient appears in no acute distress. Vitals (see flow sheet for details): stable SN findings today: Pt presents today in his home he uses a cane for assist. He express he went to the ED last night for eval and tx he express he went for pain in his right groin, he express he noteda knot and that he felt it was a new boil. Pt express the ED MD told him that it was inflamation. During SN call he placed call to his MD requesting pain meds, increased nursing visits and labs. SN noted pt testicles to be red warm to the touch, shiny with a texture like and orange peel. SN placed vcall to PCP office and made them aware, PCP office request increase in seeing Pt more often for thenex few weeks. SN placed order for increased visits. SN edcuated on warmth and cool for comfort, taking meds as directed. He expressed understanding See intervention summary for education details. Patient demonstrated a need for further skilled SN services for chronic disease management & education, medication education and wound/skin care. Current Discharge plan: self-care and family support RECOMMENDATION: Next visit to focus on (be specific): wound care documented in this encounterTr[facility]08-10-2023 Miscellaneous Notes* SN Routine - Mely Roblero RN - 03/12/2023 9:20 AM EDT SITUATION: Half-Way routine visit completed today. Mother also present during today's visit. patient reports the following: Allergies--reviewed Medications--reviewed current medications Falls--None DME-Reviewed BACKGROUND: Reason for Home Care: wound care ASSESSMENT: SN greeted at door by caregiver. Upon entrance patient found in chair Patient appears in no acute distress. Vitals (see flow sheet for details): stable SN findings today: Pt presents in his chair his mother is present. he express his labs results ar in his My chart he express his MD express they were not sent to her. Pt express he sent an email to his Md with copies of his lab results. Pt reinforced on continued wound care, disesae and medicaiton management.Pt expressed understanding. pt expres he took his shower early this am and applied the dressing beforee SN arrival See intervention summary for education details. Patient demonstrated a need for further skilled SN services for chronic disease management & education, medication education and wound/skin care. Current Discharge plan: self-care and family support RECOMMENDATION: Next visit to focus on (be specific): wound care documented in this encounterTr[facility]08-08-2023 Miscellaneous Notes* SN PRN - Mely Roblero RN - 03/10/2023 8:19 AM EDT SITUATION: Half-Way PRN visit completed today. Mother also present during today's visit. patient reports the following: Allergies--reviewed Medications--reviewed current medications Falls--None BACKGROUND: Reason for Home Care: wound care Reason for PRN Visit: lab draw ASSESSMENT: SN greeted at door by caregiver. Upon entrance patient found in chair Patient appears in no acute distress. Vitals (see flow sheet for details): stable SN findings today: pt presents todaay in his home his mother is present. lab draws done this visit pt tolerated well. taken to [facility]. Pt reinforced on deep breathing o2 safety. Wound care and mediaction management. he expressed understanding See intervention summary for education details and skills performed. RECOMMENDATION: Next visit to focus on (be specific): wound care [facility] Miscellaneous Notes* SN Routine - Mely Roblero RN - 03/09/2023 9:50 AM EDT SITUATION: Half-Way routine visit completed today. Mother also present during today's visit. patient reports the following: Allergies--reviewed Medications--reviewed current medications Falls--None DME-Reviewed BACKGROUND: Reason for Home Care: wound care ASSESSMENT: SN greeted at door by caregiver. Upon entrance patient found in chair Patient appears in no acute distress. Vitals (see flow sheet for details): stable SN findings today: pt presents today in his home, he uses a cane for assist his mother is present. he is wearing his o2 at MT at 4 l. received call from MD requesting labs be drawn today or tomorrow SN does not have supplies in care SN made PRN visit for tomorrow. wound care done this visit. Pt tolerated well. See intervention summary for education details. Patient demonstrated a need for further skilled SN services for chronic disease management & education, medication education and wound/skin care. Current Discharge plan: self-care and family support RECOMMENDATION: Next visit to focus on (be specific): lab draws documented in this [facility]Tr[facility]04-2023 Miscellaneous Notes* CARE COORDINATION - Porsche Cuello RN - 03/06/2023 9:08 AM EDT SN called pt to set up visit. pt states he does not have supplies, but they will be delievered thursday. pt states he has been using abd pads for wound care. pt states he would rather wait for thursday's visit when he has all the correct supplies for wound care, and Mely knows what to do. SN visitunmade. documented in this encounterTr[facility]08-02-2023 Miscellaneous Notes* HH SN Routine - Marley Arevalo RN - 03/04/2023 10:14 AM EDT SITUATION: Half-Way routine visit completed today. mother also present during today's visit. patient reports the following: Allergies--reviewed Medications--reviewed current medications Falls--None DME-NONE BACKGROUND: Reason for Home Care: wound care, copd ASSESSMENT: SN greeted at door by patient called for sn to enter Patient appears in no acute distress. Patient/CG concerns verbalized today: concerned over running out of supplies Vitals (see flow sheet for details): stable SN findings today: pt pleasant and cooperative with sn. pt states several times he is very embarassed by his wound location and have to have everyone looking at his bottom . sn tries to reassure pt and calm his anxiety during the dressing change. pt denies any falls. pt c/o slight pain to perianal area that is relieved by meds or position change. pt denies any changes to his medications. pt had just showered prior to sn arriving, pt dressed his wounds on his inner right and left thigh. sn did clean, and apply lidocaine cream and new dressing to pts perianal wound. see wound assesment for description. pt only has one dressing left today and said he has been waiting on a delivery of wound s upplies. sn did not see any orders in [facility] system. sn called [facility] while in pts home and placed anorder for border dressings. pt very appreciative. pts mother present during visit today. pt denies any new sob or cp. pt wears o2 at 4L/nc all of the time. pt has a follow up visit with his dr next week. sn reviewed next visit coming up with pt. See intervention summary for education details. Patient demonstrated a need for further skilled SN services for chronic disease management & education and wound/skin care. Current Discharge plan: self-care RECOMMENDATION: Next visit to focus on (be specific): wound care, copd documented in this encounterTr[facility]27[facility]2023 Miscellaneous Notes* SN Routine - Mely Roblero RN - 02/26/2023 8:03 AM EDT SITUATION: Half-Way routine visit completed today. only patient also present during today's visit. patient reports the following: Allergies--reviewed Medications--reviewed current medications Falls--None DME-Reviewed BACKGROUND: Reason for Home Care: wound care ASSESSMENT: SN greeted at door by patient motioned from chair for SN to enter home Patient appears in no acute distress. Vitals (see flow sheet for details): stable SN findings today: Pt presents today in his chair. Pt expresses he was taking a correctional guard this amd and he slipped and almost fell he expresses he grabbed onto the grab bar and caught himself that he did not hit his head to fall onto the floor. Pt showed SN a small discolored area to his left upper arm.Pt express he has had non stick on his shower but they have started to come up from the floor of the shower. SN educated pt and several different types of anti slip products that can possible assit him with not slipping in the shower Pt expressed understanding. Pt express he was so shook by his fall he had his dressings done prior to SN arrival. Pt express his wounds continue to drain kellowish red thick drainage . SN educated on continued wound care and s/s of infection taking atb and all meds as directed. Pt expressed understanding See intervention summary for education details. Patient demonstrated a need for further skilled SN services for chronic disease management & education, medication education and wound/skin care. Current Discharge plan: self-care and family support RECOMMENDATION: Next visit to focus on (be specific): wound care [facility] in this [facility]Tr[facility]2023 Miscellaneous Notes* SN Routine - Mely Roblero RN - 02/16/2023 9:47 AM EDT SITUATION: Half-Way routine visit completed today. Mother also present during today's visit. patient and caregiver reports the following: Allergies--reviewed Medications--reviewed current medications Falls--None DME-Reviewed BACKGROUND: Reason for Home Care: wound care ASSESSMENT: SN greeted at door by caregiver. Upon entrance patient found in chair Patient appears in no acute distress. Vitals (see flow sheet for details): stable SN findings today: pt presents today in his chair his mother is rpesent he express he took a showerthis am and was able to put the dressing on himself he request SN not change dressings today d/t not receiveong dressing supplies from DME yet. SN sent message to CM requesting she check into order. Pt expres his MD ai not yet received his lab results SN sent message to CM she expres she will fax MD his results. Reinfrpced wound care s/s of infection and disease management Pt expressed understandoing See intervention summary for education details. Patient demonstrated a need for further skilled SN services for chronic disease management & education, medication education and wound/skin care. Current Discharge plan: self-care and family support RECOMMENDATION: Next visit to focus on (be specific): wound documented in this encounterTr[facility]07-14-2023 Miscellaneous Notes* SN Recert - Mely Roblero RN - 02/13/2023 9:01 AM EDT SITUATION: Half-Way Recert visit completed today. only patient also present during today's visit. patient reports the following: Allergies--reviewed Medications--reviewed current medications Falls--None DME-Reviewed BACKGROUND: Reason for Home Care: abscess ASSESSMENT: SN greeted at door by patient utilizing cane and demonstrates stable gait. Patient appears in no acute distress. Patient lives at home with mother and brother. Home environment: clean, uncluttered and has pets: dogs and cat. Vitals (see flow sheet for details): stable SN findings today: Pt presents today in his home. he express he did not get any sleep last night and is exhausted today. Pt express his wound has drained less over the past few days and would like totry 2 days a week visits for the next few weeks . SN scheduled his recert today and schedule 2xweek. Pt agreed. Pt express he has not showered yet and did not want SN looking at his wounds. reinforced continued wound care and management with Pt he expressed understanding See intervention summary for education details and skills performed. Visit frequency, plan of care, and goals & dates reviewed and updated with patient and plan of care agreed upon. Home care book updated. Patient demonstrated a need for further skilled SN services for chronic disease management & education, medication education and wound/skin care RECOMMENDATION: Visit Frequency: 2x4, 1x5 Need for additional services: Patient agreeable to N/A referrals. Patient declined N/A referrals. Additional concerns to be followed up on: NONE Next visit to focus on (be specific): wound care documented in this encounterTr[facility]07-12-2023 Miscellaneous Notes* HH SN Routine - Mely Roblero RN - 02/11/2023 11:05 AM EDT SITUATION: Half-Way routine visit completed today. Mother also present during today's visit. patient reports the following: Allergies--reviewed Medications--reviewed current medications Falls--None DME-Reviewed BACKGROUND: Reason for Home Care: wound care ASSESSMENT: SN greeted at door by caregiver. Upon entrance patient found in chair Patient appears in no acute distress. Vitals (see flow sheet for details): stable SN findings today: Pt presents today in his chair. SN carlee labs with 1 attempt pt tolerated well. Pt express he has taken his shower this am and removed his dressing that he has opne to air at this time. He express he would like to try to perform his own wound care today to see if he can reduce thenumber of visits from SN. Pt will let SN know if he was able to perfomr wound care at next visit. See intervention summary for education details. Patient demonstrated a need for further skilled SN services for chronic disease management & education, medication education and wound/skin care. Current Discharge plan: self-care and family support RECOMMENDATION: Next visit to focus on (be specific): how did wound care go? documented in this encounterTr[facility]07-10-2023 Miscellaneous Notes* SN Routine - Mely Roblero RN - 02/09/2023 10:52 AM EDT SITUATION: Half-Way routine visit completed today. Mother also present during today's visit. patient reports the following: Allergies--reviewed Medications--reviewed current medications Falls--None DME-Reviewed BACKGROUND: Reason for Home Care: wound care ASSESSMENT: SN greeted at door by caregiver. Upon entrance patient found in chair Patient appears in no acute distress. Vitals (see flow sheet for details): stable SN findings today: Pt presents todasy in his chair wound care done this visit. Pt tolerated well. SN attempt x3 to draw labs with no flash. Pt express SN can try again on , SN made Pt awarethere may be another nurse trying. Pt agreed as long as other nurse did not do his wounds. See intervention summary for education details. Patient demonstrated a need for further skilled SN services for chronic disease management & education, medication education and wound/skin care. Current Discharge plan: self-care and family support RECOMMENDATION: Next visit to focus on (be specific): labs wound care documented in this encounterTr[facility]07-07-2023 Miscellaneous Notes* Telephone Encounter - Marley Arevalo RN - 02/06/2023 8:41 AM EDT Bjorn, I am the home care nurse who was to see Cayla today. He refused a visit, he would only like his main nurse to see him. He will be unmade, thank you. Marley Arevalo RN documented in this encounterTr[facility]07-06-2023 Miscellaneous Notes* SN Routine - Mely Roblero RN - 02/05/2023 9:37 AM EDT SITUATION: Half-Way routine visit completed today. Mother also present during today's visit. patient reports the following: Allergies--reviewed Medications--reviewed current medications Falls--None DME-Reviewed BACKGROUND: Reason for Home Care: wound care ASSESSMENT: SN greeted at door by caregiver. Upon entrance patient found in chair Patient appears in no acute distress. Vitals (see flow sheet for details): stable SN findings today: Pt presents today in his chair his mother is present. lab draws done this visit 1 attempt pt tolerated well. Pt express dressing sti;ll intact and doid not want it changed today. PRN visit tomorrow for dressing changes. scheduled See intervention summary for education details. Patient demonstrated a need for further skilled SN services for chronic disease management & education, medication education and wound/skin care. Current Discharge plan: self-care and family support RECOMMENDATION: Next visit to focus on (be specific): wound care documented in this encounterTr[facility]07-[facility]-2023 Miscellaneous Notes* SN Routine - Mely Roblero RN - 02/04/2023 8:02 AM EDT SITUATION: Half-Way routine visit completed today. Mother also present during today's visit. patient reports the following: Allergies--reviewed Medications--reviewed current medications Falls--None DME-Reviewed BACKGROUND: Reason for Home Care: wound care ASSESSMENT: SN greeted at door by caregiver. Upon entrance patient found in chair Patient appears in no acute distress. Vitals (see flow sheet for details): stable SN findings today: Pt presents today in his chair his mother is presents he uses a cane for assist.he has a dry non productive cough, he express is occassional and usualy decreases during the day. Wound care done this visit Pt tolerated well. Pt express he was sitting with his leg elevateed and hemoved willard and his scrotum area started hurting SN notes pt scrotum to be red and drainage serous sang drainage. Pt express he spoke with his MD and has orders for [place] SN noted orders. See intervention summary for education details. Patient demonstrated a need for further skilled SN services for chronic disease management & education, medication education and wound/skin care. Current Discharge plan: self-care and family support RECOMMENDATION: Next visit to focus on (be specific): wound care documented in this encounterTr[facility]07-03-2023 Miscellaneous Notes* SN Routine - Mely Roblero RN - 02/02/2023 9:45 AM EDT SITUATION: Half-Way routine visit completed today. Mother also present during today's visit. patient reports the following: Allergies--reviewed Medications--reviewed current medications Falls--None DME-Reviewed BACKGROUND: Reason for Home Care: wound care ASSESSMENT: SN greeted at door by caregiver. Upon entrance patient found in chair Patient appears in no acute distress. Vitals (see flow sheet for details): stable SN findings today: pt presents today in his chair his mother is present he uses a cane for assist he express his wound began to drain. Sn notes an additional area beside the current wounds that is open red and drainging Pt express very painfull. Pt area under his testicles is red raw and very painful for Pt SN cleansed area with chlorahexadine applied lidocane to skin applied clean dry dressing to open areas. Pt tolerated well See intervention summary for education details. Patient demonstrated a need for further skilled SN services for chronic disease management & education, medication education and wound/skin care. Current Discharge plan: self-care and family support RECOMMENDATION: Next visit to focus on (be specific): wound care documented in this encounterTr[facility]06-30-2023 Miscellaneous Notes* SN Routine - Mely Roblero RN - 01/30/2023 7:57 AM EDT SITUATION: Half-Way routine visit completed today. Mother also present during today's visit. patient reports the following: Allergies--reviewed Medications--reviewed current medications Falls--None DME-Reviewed BACKGROUND: Reason for Home Care: wound care ASSESSMENT: SN greeted at door by patient called for SN to enter home Patient appears in no acute distress. Vitals (see flow sheet for details): stable SN findings today: Pt presents today in his home he uses a cane for assist he express he has been having episode of loose stool yesterday and today he express he does not want SN to change dressings d/t his loose stools. He express he has been having arthritic pain all over with the weather changes. SN educated on position rest and takignOTC for assist with pain. monitor fluids and if loose stool does not resolve [facility] Pt expressed understanding See intervention summary for education details. Patient demonstrated a need for further skilled SN services for chronic disease management & education, medication education, wound/skin care and safety. Current Discharge plan: self-care and family support RECOMMENDATION: Next visit to focus on (be specific): wound care documented in this encounterTr[facility]06[facility]28-2023 Miscellaneous Notes* SN Routine - Mely Roblero RN - 01/28/2023 8:13 AM EDT SITUATION: Half-Way routine visit completed today. only patient also present during today's visit. patient reports the following: Allergies--updated Medications--reviewed current medications Falls--None DME-Reviewed BACKGROUND: Reason for Home Care: wound care ASSESSMENT: SN greeted at door by patient utilizing cane and demonstrates stable gait. Patient appears in no acute distress. Vitals (see flow sheet for details): stable SN findings today: Pt presents today in his home he is using a cane fore assist he is wearing his O2 cont NC. wound care don this visit Pt tolerated well. reinfroced continued disease management, wound care on non sn visit days and home safety pt expressed understanding See intervention summary for education details. Patient demonstrated a need for further skilled SN services for chronic disease management & education, medication education and wound/skin care. Current Discharge plan: self-care and family support RECOMMENDATION: Next visit to focus on (be specific): wound care documented in this encounterTr[facility]06[facility]26-2023 Miscellaneous Notes* HH CARE COORDINATION - Mely Roblero RN - 01/26/2023 2:03 PM EDT SN contacted Dr. Norris office on 01-26-23 message left on Nurses line for the following: Pt missed visit New orders: None Follow up needed: None documented in this encounterTr[facility]06-19-2023 Miscellaneous Notes* SN Routine - Mely Roblero RN - 01/19/2023 1:01 PM EDT SITUATION: Half-Way routine visit completed today. Mother also present during today's visit. patient reports the following: Allergies--reviewed Medications--reviewed current medications Falls--None DME-Reviewed BACKGROUND: Reason for Home Care: wound care ASSESSMENT: SN greeted at door by caregiver. Upon entrance patient found in chair Patient appears in no acute distress. Vitals (see flow sheet for details): stable SN findings today: Pt presents today in his home he uses a cane for assist he is wearing his 02 continuous at 4l/min. Wound care done this visit pt tolerated well. Reinfroced cotninued wound care, disease management, medicaiotn managemeng and 02 safety. pt expressed understanding. See intervention summary for education details. Patient demonstrated a need for further skilled SN services for chronic disease management & education, medication education and wound/skin care. Current Discharge plan: self-care and family support RECOMMENDATION: Next visit to focus on (be specific): wound care documented in this encounterTr[facility]06-16-2023 Miscellaneous Notes* SN Routine - Mely Roblero RN - 01/16/2023 7:24 AM EDT SITUATION: Half-Way routine visit completed today. Mother also present during today's visit. patient reports the following: Allergies--reviewed Medications--reviewed current medications Falls--None DME-Reviewed BACKGROUND: Reason for Home Care: wound care ASSESSMENT: SN greeted at door by caregiver. Upon entrance patient found in chair Patient appears in no acute distress. Vitals (see flow sheet for details): stable SN findings today: Pt presents today in his home he uses a cane for a ssist his mother is present. He is wearing his O2 continuous Nc at 4l. No changhes noted to o2 safety. Wound care done this visitPt tolerated well. Reinfroced cotninued wound care disease management O2 safety and taking meds as directed Pt express understanding. See intervention summary for education details. Patient demonstrated a need for further skilled SN services for chronic disease management & education, medication education and wound/skin care. Current Discharge plan: self-care and family support RECOMMENDATION: Next visit to focus on (be specific): wound care documented in this encounterTr[facility]06-14-2023 Miscellaneous Notes* SN Routine - Mely Roblero RN - 01/14/2023 7:04 AM EDT SITUATION: Half-Way routine visit completed today. Mother also present during today's visit. patient reports the following: Allergies--reviewed Medications--reviewed current medications Falls--None DME-Reviewed BACKGROUND: Reason for Home Care: wound care ASSESSMENT: SN greeted at door by caregiver. Upon entrance patient found in chair Patient appears in no acute distress. Vitals (see flow sheet for details): stable SN findings today: Pt presents today in his home his mother is present he uses a cane for assist. Pt express he has noted an increased amount of drainage and pain to the area on his left inner upper thigh. SN notes a new open area that is drainaing a large amount of seroussang yellow thick drainage, the joanne wound is red warm and firm when touched note increased drainage coming from his wound. notified. Reinforced pt to continue to take meds as directed and change dressing when soiled he express he has someone to change his dressing over this weekend. See intervention summary for education details. Patient demonstrated a need for further skilled SN services for medication education, wound/skin care and safety. Current Discharge plan: self-care and family support RECOMMENDATION: Next visit to focus on (be specific): wound care documented in this encounterTr[facility]06-[facility]-2023 Miscellaneous Notes* CARE COORDINATION - Rigoberto Romano RN - 01/09/2023 4:02 PM EDT Patient declined home nurse visit this date. Dr.Lisa Evelin Norris' office made aware 01/16/23. documented in this encounterTr[facility]06-07-2023 Miscellaneous Notes* SN Routine - Cathy Perez RN - 01/07/2023 9:26 AM EDT SITUATION: Half-Way routine visit completed today. only patient present during today's visit. patient reports the following: Allergies--reviewed Medications--reviewed current medications Falls--None BACKGROUND: Reason for Home Care: wound care ASSESSMENT: SN greeted at door by no one. Upon entrance patient found in chair Patient appears in no acute distress. Patient/CG concerns verbalized today: no special concerns Vitals (see flow sheet for details): stable SN findings today: Pt ambulated to bedroom for care. L buttock crease wounds: upper one is a slit with minimal serous drainage. lower wound is pinpoint and less drainage noted today. Pt reports that he has also noted less drainage. See intervention summary for education details. Patient demonstrated a need for further skilled SN services for wound/skin care. Current Discharge plan: self-care and family support RECOMMENDATION: Next visit to focus on (be specific): wound care documented in this encounterTr[facility]06-[facility]-2023 Miscellaneous Notes* SN Routine - Cathy Perez RN - 01/05/2023 12:47 PM EDT SITUATION: Half-Way routine visit completed today. mother also present during today's visit. patient reports the following: Allergies--reviewed Medications--reviewed current medications Falls--None BACKGROUND: Reason for Home Care: wound care ASSESSMENT: SN greeted at door by caregiver. Upon entrance patient found in bed Patient appears in no acute distress. Patient/CG concerns verbalized today: no special concerns Vitals (see flow sheet for details): stable SN findings today: Pt laying in bed waiting for care upon arrival. L buttock crease wounds: upper wound is pink and slightly moist with serous drainage. Lower wound is red and has a small amount of serosang drainage today, pt reports that it did drain into toilet early this am. No significant depthto wound. Both wounds are tender but pt reports pain level of 1-2 several minutes after the wound care was completed. Pt reports that he did check his blood sugar the last 2 mornings, yesterday was 134 fasting, this am was 175 after having coffee and tea this am. See intervention summary for education details. Patient demonstrated a need for further skilled SN services for chronic disease management & education, wound/skin care and safety. Current Discharge plan: self-care and family support RECOMMENDATION: Next visit to focus on (be specific): wouund care [facility] Miscellaneous Notes* Telephone Encounter - Rigoberto Romano RN - 01/02/2023 10:11 AM EDT error documented in this encounterTr[facility]-2023 Miscellaneous Notes* CARE COORDINATION - Rigoberto Romano RN - 01/02/2023 8:02 AM EDT SN contacted Dr. Dillon Norris DO on 01/02/23 for the following: unmade home nurse visit 01/02/23 per patient request. Next scheduled visit is Thursday01/05/23. documented in this encounterTr[facility]05[facility]29-2023 Miscellaneous Notes* SN Routine - Mely Roblero RN - 12/29/2022 1:59 PM EDT SITUATION: Half-Way routine visit completed today. Mother also present during today's visit. patient reports the following: Allergies--reviewed Medications--reviewed current medications Falls--None DME-Reviewed BACKGROUND: Reason for Home Care: wound care ASSESSMENT: SN greeted at door by caregiver. Upon entrance patient found in chair Patient appears in no acute distress. Vitals (see flow sheet for details): stable SN findings today: Pt presents today in his home he uses a cane for assist his mother is present. Wound care done this visit pt tolerated well. Pt express having increased difficulty today breathing with the heat he express he has his AC running and a fan on himself. Educated to try keeping cool, elevate his legs drink cool liquids deep breathing, Pt express understanding. Spoke with him about stopping smoking and some techniques SN used when she quit. He express he has been working on trying to stop and will try something SN suggested. See intervention summary for education details. Patient demonstrated a need for further skilled SN services for chronic disease management & education, medication education and wound/skin care. Current Discharge plan: self-care and family support RECOMMENDATION: Next visit to focus on (be specific): wound care documented in this encounterTr[facility]27-2023 Miscellaneous Notes* HH SN Routine - Mely Roblero RN - 12/27/2022 7:35 AM EDT SITUATION: Half-Way routine visit completed today. mother also present during today's visit. patient reports the following: Allergies--reviewed Medications--reviewed current medications Falls--None DME-Reviewed BACKGROUND: Reason for Home Care: wound care ASSESSMENT: SN greeted at door by caregiver. Upon entrance patient found in bed Patient appears in no acute distress. Vitals (see flow sheet for details): stable SN findings today: Pt presents today in his room waiting for SN to perform wound care. SN performedwound care Pt tolerated well. Pt came out to his chair using his cane for assist , his mother is present. Pt express he continues with his atb and other medications as directed. he express understanding to change dressings on his wounds as needed for soiled when no SN visit, he express his tubi flatbed stitcher has been causing him to break out and bleed he express Md request current measurements of his legsfor new compression devices she wishes to order, SN measured legs. Knee to ankle is 33 cm and circum is 60 on the left leg but measured 53 on the right but his right leg he had his old compressions devices on tight and they had indented into the legs with his +4 pitting. Pt express understanding to keep legs elevated and stay on a low sodium diet, take diuretics as directed and avoided wearing compression devices to tight releasing and repositioning at least every 2 hours he expressed understanding See intervention summary for education details. Patient demonstrated a need for further skilled SN services for chronic disease management & education, medication education and wound/skin care. Current Discharge plan: self-care and family support RECOMMENDATION: Next visit to focus on (be specific): wound care documented in this [facility]Tr[facility]-2023 Miscellaneous Notes* SN Routine - Mely Roblero RN - 12/15/2022 8:08 AM EDT SITUATION: Half-Way routine visit completed today. Mother also present during today's visit. patient reports the following: Allergies--reviewed Medications--reviewed current medications Falls--None DME-Reviewed and added to chart BACKGROUND: Reason for Home Care: wound care ASSESSMENT: SN greeted at door by caregiver. Upon entrance patient found in bed Patient appears in no acute distress. Vitals (see flow sheet for details): stable SN findings today: Pt presents today in his bed wound care done this visit wound culture obtained. Pt tolerated well. Pt express he has 2 new areas that he feels are boils SN able to note a small redarea and and area on his testicle he express in the size of an egg that he feels is a boil no redness noted. SN educated to use warm compresses, continue cleansing with Hibiclens or dial soap and if areas gets worse contact [facility] SN or his MD as she is a wound nurse. Educated hopefully he wound culture will reveal what if any atb he may need to help with this infection he expressed understanding See intervention summary for education details. Patient demonstrated a need for further skilled SN services for chronic disease management & education, medication education and wound/skin care. Current Discharge plan: self-care and family support RECOMMENDATION: Next visit to focus on (be specific): wound care, recert documented in this encounterTr[facility]12-2023 Miscellaneous Notes* SN Routine - Mely Roblero RN - 12/12/2022 1:53 PM EDT SITUATION: Half-Way routine visit completed today. mother and brother also present during today's visit. patient reports the following: Allergies--reviewed Medications--reviewed current medications Falls--None DME-Reviewed BACKGROUND: Reason for Home Care: wound care ASSESSMENT: SN greeted at door by caregiver. Upon entrance patient found in bed Patient appears in no acute distress. Vitals (see flow sheet for details): stable SN findings today: Pt prsents today in his bed waiting on SN. Dressing removed packing had fallen out. new dressing applied Pt tolerated well. Reinforced continued wound acre and taking meds as directed pt express understasnding See intervention summary for education details. Patient demonstrated a need for further skilled SN services for chronic disease management & education, medication education and wound/skin care. Current Discharge plan: self-care and family support RECOMMENDATION: Next visit to focus on (be specific): wound care documented in this encounterTr[facility]05-11-2023 Miscellaneous Notes* SN Routine - Mely Roblero RN - 12/11/2022 12:17 PM EDT SITUATION: Half-Way routine visit completed today. mother and brother also present during today's visit. patient reports the following: Allergies--reviewed Medications--reviewed current medications Falls--None DME-Reviewed BACKGROUND: Reason for Home Care: Wound care ASSESSMENT: SN greeted at door by caregiver. Upon entrance patient found in bed Patient appears in no acute distress. Vitals (see flow sheet for details): stable SN findings today: Pt presents today in his bed he is waiting for SN . Pt had just finished his shower and his dressing is removed. Repacked and dressed wound Pt tolerated well. Reinforced continued wound See intervention summary for education details. Patient demonstrated a need for further skilled SN services for chronic disease management & education, medication education and wound/skin care. Current Discharge plan: self-care and family support RECOMMENDATION: Next visit to focus on (be specific): wound care documented in this encounterTr[facility]05-10-2023 Miscellaneous Notes* CARE COORDINATION - Rigoberto Romano RN - 12/10/2022 9:02 AM EDT SN contacted Dr. Dillon Norris' office on 12/17/22, left secured message for the following: report unmade visit on 12/10/22 due to wound center appointment. documented in this encounterTr[facility]05-09-2023 Miscellaneous Notes* SN Routine - Mely Roblero RN - 12/09/2022 1:22 PM EDT SITUATION: Half-Way routine visit completed today. Mother also present during today's visit. patient reports the following: Allergies--reviewed Medications--reviewed current medications Falls--None DME-Reviewed BACKGROUND: Reason for Home Care: wound care ASSESSMENT: SN greeted at door by caregiver. Upon entrance patient found in bed Patient appears in no acute distress. Vitals (see flow sheet for details): stable SN findings today: Pt presents tofday in is bed. he ws able to shower and removed his dressing prior to SN arrival. Dressing applied this visit Pt tolerated well. Reinforced continued daily cleansingof joanne wound. Pt expressed understanding, Pt very anxious this visit, d/t SN nt being able to change dressings tomorrow d/t SN having a day off BP not obtained this visit d/t Pt smoking. Pt did remove o2 and waitied before smoking. Reassured Pt other SN would be just as good bt Pt express continued anxiety. Pt express he has an apt tomorrow so SN could cancel his visit. SN notifed Rigoberto DOVER CM See intervention summary for education details. Patient demonstrated a need for further skilled SN services for chronic disease management & education, medication education and wound/skin care. Current Discharge plan: self-care and family support RECOMMENDATION: Next visit to focus on (be specific): wound care documented in this encounterTr[facility]05-08-2023 Miscellaneous Notes* SN Routine - Mely Roblero RN - 12/08/2022 1:13 PM EDT SITUATION: Half-Way routine visit completed today. mother also present during today's visit. patient and caregiver reports the following: Allergies--reviewed Medications--reviewed current medications Falls--None DME-Reviewed BACKGROUND: Reason for Home Care: wound care ASSESSMENT: SN greeted at door by caregiver. Upon entrance patient found in hospital bed Patient appears in no acute distress. Vitals (see flow sheet for details): stable SN findings today: pt presents today in his bed, his mother is present he uses a cane for assist. He is wearing his O2 continous. wound care done this visit received call from Dr Schneider office spoke with Selena orders faxed to Rigoberto Elias regarding wound care and obtaining a wound coulture. Rigoberto made aware she express she will palce order for new supplies. Pt made aware of new orders. expressed understanding See intervention summary for education details. Patient demonstrated a need for further skilled SN services for chronic disease management & education, medication education and wound/skin care. Current Discharge plan: self-care and family support RECOMMENDATION: Next visit to focus on (be specific): wound care documented in this encounterTr[facility]-2023 Miscellaneous Notes* SN Routine - Mely Roblero RN - 12/05/2022 1:18 PM EDT SITUATION: Half-Way routine visit completed today. Mother also present during today's visit. patient reports the following: Allergies--reviewed Medications--reviewed current medications Falls--None DME-Reviewed BACKGROUND: Reason for Home Care: wound care ASSESSMENT: SN greeted at door by caregiver. Upon entrance patient found in bed Patient appears in no acute distress. Vitals (see flow sheet for details): stable SN findings today: Pt presents today in his bed waiting for SN arrival he uses a cane for assist. The packing had fallen out of his wounds. SN cleansed with chlorahexadine and repacked woundss, applied new dressing. Reinforced taking meds as directed assure taking antibiotics till completed. Pt express understanding See intervention summary for education details. Patient demonstrated a need for further skilled SN services for chronic disease management & education, medication education and wound/skin care. Current Discharge plan: self-care and family support RECOMMENDATION: Next visit to focus on (be specific): wound care documented in this encounterTr[facility]05-04-2023 Miscellaneous Notes* SN Routine - Mely Roblero RN - 12/04/2022 11:54 AM EDT SITUATION: Half-Way routine visit completed today. mother also present during today's visit. patient reports the following: Allergies--updated Medications--reviewed current medications Falls--None DME-Reviewed BACKGROUND: Reason for Home Care: wound care ASSESSMENT: SN greeted at door by caregiver. Upon entrance patient found in bed Patient appears in no acute distress Vitals (see flow sheet for details): stable SN findings today: Pt presents today in his room. Dressing changes done to wounds. Pt packing has come out of the incision, SN repacked ounds and coverd with island dressing. Pt express painfull but he tolerated well. SN educated on continued wound care, taking meds as directed completing atb till all gone. Pt expressed understanding See intervention summary for education details. Patient demonstrated a need for further skilled SN services for chronic disease management & education, medication education and wound/skin care. Current Discharge plan: self-care and family support RECOMMENDATION: Next visit to focus on (be specific): wound care documented in this encounterTr[facility]-2023 Miscellaneous Notes* SN Routine - Mely Roblero RN - 12/03/2022 1:19 PM EDT SITUATION: Half-Way routine visit completed today. mother also present during today's visit. patient reports the following: Allergies--reviewed Medications--reviewed current medications Falls--None DME-Reviewed BACKGROUND: Reason for Home Care: wound care ASSESSMENT: SN greeted at door by caregiver. Upon entrance patient found in bed Patient appears in no acute distress. Vitals (see flow sheet for details): stable SN findings today: pt presents today in his bed his mother is cathysent. he express his wound to his left inner leg has been extremely painfull. SN removed packing and noted a large amount of green draiange to dressing, SN noted oeri wound to be red hot and swolled to about the size of a tennis ball jacoby his skin. SN noted pt RLE to be red hat and shiny Pt express it was drainaing clear liquid. SNfelt pt needed to be seen by an MD Pt express he was going to take himself to the ED. SN placed call to [place] [facility] and gave nurse to nurse report to Nurse. See intervention summary for education details. Patient demonstrated a need for further skilled SN services for chronic disease management & education, medication education and wound/skin care. Current Discharge plan: self-care and family support RECOMMENDATION: Next visit to focus on (be specific): wound care wnat did ED say or doo documented in this encounterTr[facility]04-29-2023 Miscellaneous Notes* SN Routine - Mely Roblero RN - 11/29/2022 1:13 PM EDT SITUATION: Half-Way routine visit completed today. mother also present during today's visit. patient reports the following: Allergies--reviewed Medications--reviewed current medications Falls--None DME-Reviewed BACKGROUND: Reason for Home Care: wound care ASSESSMENT: SN greeted at door by caregiver. Upon entrance patient found in bed Patient appears in no acute distress. Vitals (see flow sheet for details): stable SN findings today: Pt presents today in his bed he uses a cane for assist, his mother is present. wound care done this visit. pt reinfroced on continued wound care and copd management. Pt express understanding See intervention summary for education details. Patient demonstrated a need for further skilled SN services for chronic disease management & education, medication education and wound/skin care. Current Discharge plan: self-care and family support RECOMMENDATION: Next visit to focus on (be specific): wound care documented in this encounterTr[facility]04[facility]27-2023 Miscellaneous Notes* SN Routine - Mely Roblero RN - 11/27/2022 1:23 PM EDT SITUATION: Half-Way routine visit completed today. mother also present during today's visit. patient and caregiver reports the following: Allergies--reviewed Medications--reviewed current medications Falls--None DME-Reviewed BACKGROUND: Reason for Home Care: abcess ASSESSMENT: SN greeted at door by caregiver. Upon entrance patient found in chair Patient appears in no acute distress. Vitals (see flow sheet for details): stable SN findings today: Pt presents today in his chair he express he has been having less chest pain andhas noted no patterne he continues to monitor and express understanding if travels down arm into nexk back of does not stopp after a few minutes to call 911. He epxress he has a new boil that opened up on his inner right thigh. MD made aware new orders noted. See intervention summary for education details. Patient demonstrated a need for further skilled SN services for chronic disease management & education, medication education and wound/skin care. Current Discharge plan: self-care and family support RECOMMENDATION: Next visit to focus on (be specific): wound care documented in this encounterTr[facility]04[facility]21-2023 Miscellaneous Notes* Routine - Mely Roblero RN - 11/21/2022 2:23 PM EDT SITUATION: Half-Way routine visit completed today. mother also present during today's visit. patient and caregiver reports the following: Allergies--reviewed Medications--reviewed current medications Falls--None DME-Reviewed BACKGROUND: Reason for Home Care: Abcess ASSESSMENT: SN greeted at door by caregiver. Upon entrance patient found in chair Patient appears in no acute distress. Vitals (see flow sheet for details): stable SN findings today: Pt presents today in his home he uses a cane for assist his mother is present. Pt express he went to the ED for questions regarding how felt he needed to care for hime self he express he was continuing to have chest pain he express is in the middle opf the chest and it goes from his upper stomach to his right and or left side but not usually at the same side. Pt express [facility] did a cardiac work up on him including labs and they express he is not having cardiac crisis at this time. they diagnosed him with essential hypertension. Educated pt on keeping a journal ofwhen his pain occurs, what was he doing prior to his pain what did he eat? etc. Pt expressed he would do that. Pt express he is having no chest pain at this time. SN placed call to MD to see if she could give a referral and/or a GI study, Pt has visit with his Md on [place] at 9am Pt express he will take the journal with him. See intervention summary for education details. Patient demonstrated a need for further skilled SN services for chronic disease management & education, medication education and wound/skin care. Current Discharge plan: self-care and family support RECOMMENDATION: Next visit to focus on (be specific): wound care how is chest pain? documented in this encounterTr[facility]04-20-2023 Miscellaneous Notes* SN Routine - Mely Roblero RN - 11/20/2022 1:43 PM EDT SITUATION: Half-Way routine visit completed today. mother also present during today's visit. patient reports the following: Allergies--reviewed Medications--reviewed current medications Falls--None DME-Reviewed BACKGROUND: Reason for Home Care: abscess ASSESSMENT: SN greeted at door by caregiver. Upon entrance patient found in chair Patient appears in no acute distress. Vitals (see flow sheet for details): stable SN findings today: Pt presents today in his chair his mother is present. He uses a cane for assist.he express he was having chest pain and he was taken to the hospital last night he express he was diagnosed with tachycardia and chest pain. SN spoke with pt about his anxiety and if he had ever had panic attacks, he expressed yes. SN asked it Pt has taken his PRN antianxiety med he express no he has not. Pt took one during SN visit he expressed his chest pain had started to diminish during SN educated pt on relaxation, rest and distraction to help reduce anxiety. Educated if pain continues or increased travels down arm increased SOB to call 911. Wound care done this visit. Pt expressed unders tanding. See intervention summary for education details. Patient demonstrated a need for further skilled SN services for chronic disease management & education, medication education and wound/skin care. Current Discharge plan: self-care and family support RECOMMENDATION: Next visit to focus on (be specific): wound care how is chest pain documented in this encounterTr[facility]04-17-2023 Miscellaneous Notes* SN Routine - Mely Roblero RN - 11/17/2022 2:58 PM EDT SITUATION: Half-Way routine visit completed today. mother also present during today's visit. patient reports the following: Allergies--reviewed Medications--reviewed current medications Falls--None DME-Reviewed BACKGROUND: Reason for Home Care: abcess ASSESSMENT: SN greeted at door by caregiver, pt found in bed waiting for SN Patient appears in no acute distress. Vitals (see flow sheet for details): stable SN findings today: Pt presents toay in his bed waiting for SN. Pt using a cane for assist his mother is present. Dressing changes done this visit Pt tolerated well. Pt express his tubigrips have been falling down with ambulation he express his conpression devices that he currently has a re worn out and his insurance express it will cost him a few hundred dollars out of pocket. SN palced call to [employer] supplies See intervention summary for education details. Patient demonstrated a need for further skilled SN services for chronic disease management & education, medication education and wound/skin care. Current Discharge plan: self-care and family support RECOMMENDATION: Next visit to focus on (be specific): wound care documented in this encounterTr[facility]04[facility]-2023 Miscellaneous Notes* SN Routine - Mely Roblero RN - 11/14/2022 12:52 PM EDT SITUATION: Half-Way routine visit completed today. mother also present during today's visit. patient reports the following: Allergies--reviewed Medications--reviewed current medications Falls--None DME-Reviewed BACKGROUND: Reason for Home Care: wound care ASSESSMENT: SN greeted at door by caregiver. Upon entrance patient found in bed Patient appears in no acute distress. Vitals (see flow sheet for details): stable SN findings today: pt presents today in his bed he is using his cane for assist his mother is present wound care done this visit pt tolerated well Pt express having a large amount of pain with wound His MD issued his pain meds SN noted meds in med req. Pt express he missed his pradax pill in his med box the last few days he placed it in the box when he doscovered it. he express understanding to follow the list he nhas in his home and assure he has his pills all in the box pt expressed understanding. Pt educated on continued wpund care, diet and medicaiotn management he express understanding and express he started taking his lasix again aftr last SN visit. See intervention summary for education details. Patient demonstrated a need for further skilled SN services for chronic disease management & education, medication education and wound/skin care. Current Discharge plan: self-care and family support RECOMMENDATION: Next visit to focus on (be specific): wound care [facility] Miscellaneous Notes* SN PRN - Cathy Perez RN - 11/09/2022 9:21 AM EDT SITUATION: Half-Way PRN visit completed today. mother also present during today's visit. patient reports the following: Allergies--reviewed Medications--updated medication list: clindamycin Falls--None BACKGROUND: Reason for Home Care: wound care and assessment Reason for PRN Visit: new wound assessment ASSESSMENT: SN greeted at door by caregiver. Upon entrance patient found in chair Patient appears in no acute distress. Patient/CG concerns verbalized today: pt reports that he went to ER on 11/07 due to a new concern of pain in perineum. ER discharge instructions indicate that a perineal abscess was incised and drainedand pt started on clindamycin. Pt to keep area clean, wash in the shower and apply a dry dressing as long as it is draining. Vitals (see flow sheet for details): stable SN findings today: Pt report noted above. SN inspected wound to just below L gluteal fold. It has apinpoint open area and there is a small amount of light serosang drainage on removed ABD that pt placed after his shower this am. Pt reports that area is very tender, no redness, odor or swelling is noted today. SN instructed pt on wound care and he reports that he showers every other day, SN suggested that he use a spray bottle with gentle soap/water to irrigate the area on days that he does notshower. Pt requests that SN vs be increased to 3 x week for wound assessment as he states that the ER Dr told him that the swelling was about the size of a mandarin orange before it was drained. SN to discuss with rn case manager hospice tomorrow. See intervention summary for education details and skills performed. RECOMMENDATION: Next visit to focus on (be specific): wound assessment. [facility]Tr[facility]04[facility]-2023 Miscellaneous Notes* CARE COORDINATION - Mary Machado RN - 11/08/2022 12:05 PM EDT Received a call from this patient stating his packing came out from his wound and due to the location, cannot put packing back in and doesn't have anyone to assist. Needs a nurse visit today or tomorrow. Instructed this patient to put a couple ABD pads in his underwear and we will try to get a PRN nurse visit today or tomorrow. PRN nurse visit request sent to scheduling. documented in this encounterTr[facility]04-06-2023 Miscellaneous Notes* SN Routine - Mely Roblero RN - 11/06/2022 1:04 PM EDT SITUATION: Half-Way routine visit completed today. only patient also present during today's visit. patient reports the following: Allergies--reviewed Medications--reviewed current medications Falls--None DME-Reviewed BACKGROUND: Reason for Home Care: abscess ASSESSMENT: SN greeted at door by patient utilizing cane and demonstrates stable gait. Patient appears in no acute distress. Vitals (see flow sheet for details): stable SN findings today: Pt presents today in his home using his cane. he has a new firm spot to his inner left thigh that damaris draining clear liquid. he express he squeezed it last night and red/yellow drainage came out. SN notes a small pink open area with a scant amount of clear drainage coming from the area, SN educated on washing with mild soap and water, do not squeeze ir chelsea more. Pt express he has a apt with his MD Thursday for eval, Educated Pt on diet low in sugars to keep his blood sugars low to assist in healing. Pt express his A1C was 8.2 at this weeks labs. SN reinforced in COPD management and continued wound care. Pt expressed understanding See intervention summary for education details. Patient demonstrated a need for further skilled SN services for chronic disease management & education, medication education and wound/skin care. Current Discharge plan: self-care and family support RECOMMENDATION: Next visit to focus on (be specific): wound care documented in this [facility]Tr[facility]04-04-2023 Miscellaneous Notes* SN PRN - Cathy Perez RN - 11/04/2022 9:24 AM EDT SITUATION: Half-Way PRN visit completed today. mother also present during today's visit. patient reports the following: Allergies--reviewed Medications--reviewed current medications Falls--None BACKGROUND: Reason for Home Care: wound and skin care Reason for PRN Visit: ordered labs ASSESSMENT: SN greeted at door by caregiver. Upon entrance patient found in chair Patient appears in no acute distress. Patient/CG concerns verbalized today: no special concerns Vitals (see flow sheet for details): stable SN findings today: Pt sitting at computer in living room, he reports that wound is healing, he declines SN to look at wound today, he only wants labs done. Pt reports that his regular nurse, Gelacio, is keeping an eye on the area. SN reviewed labs to be drawn today and pt reports that a Hbg A1C was also to be ordered. Multiple attempts to contact Dr Norris' office and was finally able to reach her directly and she gave the order for this. This SN attempted blood draw x 3 with no flash back and informed pt that vs for labs needs to be scheduled again for tomorrow. Pt asked SN to attempt one more time; was able to get a partial mint top and a partial lavender top. This SN advised pt that labs may need to be redrawn but SN hopeful that they all can be run. [place] [facility] [place] [facility] [employer] feels that she can run them. See intervention summary for education details and skills performed. RECOMMENDATION: Next visit to focus on (be specific): Skin assessment. documented in this encounterTr[facility]03-31-2023 Miscellaneous Notes* SN Routine - Mely Roblero RN - 10/31/2022 1:07 PM EDT SITUATION: Half-Way routine visit completed today. only patient also present during today's visit. patient reports the following: Allergies--reviewed Medications--reviewed current medications Falls--None DME-Reviewed BACKGROUND: Reason for Home Care: wound care ASSESSMENT: SN greeted at door by Pt called from window for SN to enter Upon entrance patient found in chair Patient appears in no acute distress. Patient/CG concerns verbalized today: leg cramps Vitals (see flow sheet for details): stable SN findings today: Pt presents today in his chair he is using a cane fro assist he is wearig his O2. He express he has been having new onset leg cramps . SN asked if Pt has been taking his lasix as directed. Pt express he has been and wearing his tubi flatbed stitcher he noptes increased urination. Educated on lasix effects and potassium depleting results. Pt express his Dr office is oyt till Thursday and he has a apt on with her. SN educated till then to increase the potassium in his diet he express and allergy to bananas. SN went over food rich inpotassium. Pt expressed understanding. Wound care done this visit Pt tolerated well. See intervention summary for education details. Patient demonstrated a need for further skilled SN services for chronic disease management & education, medication education and wound/skin care. Current Discharge plan: self-care and family support RECOMMENDATION: Next visit to focus on (be specific): wound care, how are leg cramps? any new meds? did he go to MDvisit? documented in this encounterTr[facility]03-27-2023 Miscellaneous Notes* SN PRN - Mely Roblero RN - 10/27/2022 2:03 PM EDT Allergies--reviewed Medications--reviewed current medications Falls--None DME-Reviewed BACKGROUND: Reason for Home Care: anal abscess ASSESSMENT: SN greeted at door by caregiver. Upon entrance patient found in chair Patient appears in no acute distress. Vitals (see flow sheet for details): stable SN findings today: Pt presents today in his chair. his BLE remain edematous with small fluid filledpockets but appear less red and inflamed. he express he did get the new size of tubi flatbed stitcher and he will begin to wear them tomorrow. SN educated on donning them in AM and doff in evening assure they lay flat against the back of his leg, checking often to assure they don't roll and cause soreness. Pt express he noted that he had 20 mg lasix and that he has been taking 20 mg in the am and 20 mg in the afternoon he spoke with his Md and she clarified with him to take 2 20 mg in the am Pt now has 40 mg in am and 20 mg lasix in afternoon in his pill box as of today. SN educated to assure he follows the directions as noted on the bottles reading dosage as they may change based on availability at the pharmacy. Reinforced deep breathing, pacing self low sodium diet. Pt expressed understanding. See intervention summary for education details. Patient demonstrated a need for further skilled SN services for chronic disease management & education, medication education and wound/skin care. Current Discharge plan: self-care and family support RECOMMENDATION: Next visit to focus on (be specific): wound car, how's edema? breathing? documented in this encounterTr[facility]03-23-2023 Miscellaneous Notes* SN Routine - Mely Roblero RN - 10/23/2022 9:18 AM EDT SITUATION: Half-Way routine visit completed today. mother also present during today's visit. patient reports the following: Allergies--reviewed Medications--reviewed current medications Falls--None DME-Reviewed BACKGROUND: Reason for Home Care: anal ascess, wound care ASSESSMENT: SN greeted at door by caregiver. Upon entrance patient found in bed Patient appears in no acute distress. Vitals (see flow sheet for details): stable SN findings today: Pt presents todaay in his bed waiting for SN. Wound care done this visit Pt tolerated well. SN noted Pt to be having a frequent non productive cough his BLE appear larger SN measured and they have increased from 61/62 to 64 cm with small fluid filled blisteres scattered on them. His Bilater lower lobes have crackles, while upper are clear he is having increased respirations andSOB with minimal excertion. He express he has not taken his diuretics yet this am. He express he does have a PRN lasix he can tale for f;uid accumulation. SN noted no orders for this. SN palced call to MD and requested clarification and made aware of current Pt condition. SN educated Pt and his mother on s/s getting worse, SOB not resolving after a few minutes to call 911. they expressed understanding. SN will return for additional visits to monitor Pt. SN sceduled additional visits for tomorrow amd Thursday to monitor Pt See intervention summary for education details. Patient demonstrated a need for further skilled SN services for chronic disease management & education, medication education and wound/skin care. Current Discharge plan: self-care and family support RECOMMENDATION: Next visit to focus on (be specific): how is breathong? edema? any news from MD? documented in this encounterTr[facility]03-17-2023 Miscellaneous Notes* SN Recert - Mely Roblero RN - 10/17/2022 1:07 PM EDT SITUATION: Half-Way Recert visit completed today. mother also present during today's visit. patient reports the following: Allergies--reviewed Medications--reviewed current medications Falls--None DME-Reviewed BACKGROUND: Reason for Home Care: wound care perineal abscess ASSESSMENT: SN greeted at door by caregiver. Upon entrance patient found in bed Patient appears in no acute distress. Patient lives at home with mother and brother. Home environment: clean, uncluttered and has pets: dogs and cat. Vitals (see flow sheet for details): stable SN findings today: Pt presents today in his bed his tubi flatbed stitcher size F has arrived SN applied to BLE Pt expressed understanding of donning in AM and doffing each night hand washing tubi flatbed stitcher and allowing to dry before wearing the next AM. SN educated pt on various places he can purchase additional pair as he insurance express they will not pay for them he expressed understanding. Wound care done this visit pt tolerated well. Pt recertification done this visit Pt continues with a need for SN for wound care. See intervention summary for education details and skills performed. Visit frequency, plan of care, and goals & dates reviewed and updated with patient and plan of care agreed upon. Home care book updated. Patient demonstrated a need for further skilled SN services for chronic disease management & education, medication education and wound/skin care RECOMMENDATION: Visit Frequency: 2x1. 1x5 Need for additional services: Patient agreeable to N/A referrals. Patient declined N/A referrals. Additional concerns to be followed up on: NONE Next visit to focus on (be specific): wound care how ar tubi gripp fitting did he get additional pairs documented in this encounterTr[facility]03-13-2023 Miscellaneous Notes* SN Routine - Mely Roblero RN - 10/13/2022 11:29 AM EDT SITUATION: Half-Way routine visit completed today. mother and brother also present during today's visit. patient reports the following: Allergies--reviewed Medications--reviewed current medications Falls--None DME-Reviewed BACKGROUND: Reason for Home Care: wound care ASSESSMENT: SN greeted at door by caregiver. Upon entrance patient found in bed Patient appears in no acute distress. Vitals (see flow sheet for details): stable SN findings today: Pt presents today in his home his mother and brother are present he is using hiscane for assist. Dressing change done this visit pt tolerted well. Pt express he has been starting to taper down on his prednisone per MD orders and has noted increaased pain in his joints and increased SOB. his lungs are diminshed in Bilateral lower lobes. SN notified MD. educated on tubi flatbed stitcher wearing Pt received a size J and it is too big for his leg. SN placed call to [employer] and they express they will send him the correct size. SN educated on deep breathing monitor fluid intake and take meds as dirfected contact MD/[facility] if SOB gets worse. Call 911 if SOB does not resolve after 3 minutes. Ptexpress understanding See intervention summary for education details. Patient demonstrated a need for further skilled SN services for chronic disease management & education, medication education and wound/skin care. Current Discharge plan: self-care and family support RECOMMENDATION: Next visit to focus on (be specific): how are tubi texturing machine fixer working? wound care? documented in this encounterTr[facility]03-10-2023 Miscellaneous Notes* CARE COORDINATION - Mely Roblero RN - 10/10/2022 4:51 PM EST SN contacted Dr. Dillon Norris DO on 10-10 for the following: missed visit New orders: None Follow up needed: None documented in this encounterTr[facility]03-06-2023 Miscellaneous Notes* SN Routine - Cathy Perez RN - 10/06/2022 12:25 PM EST SITUATION: Half-Way routine visit completed today. only patient present during today's visit. patient reports the following: Allergies--reviewed Medications--reviewed current medications Falls--None BACKGROUND: Reason for Home Care: wound assessment and care ASSESSMENT: SN greeted at door by patient no DME and demonstrates stable gait. Patient appears in no acute distress. Patient/CG concerns verbalized today: pt verbalizes that he continues to have lower leg swelling. Vitals (see flow sheet for details): stable SN findings today: Pt is ambulating in the home. He reports that he spoke with Dr Norris yesterday and he is going to start tapering off of the prednisone, he is concerned that this is contibuting to the boils that he has been getting as well as lower leg swelling. He starts tapering tomorrow. L perianal abscess is healing well, scant amount of serous drainage, pt reports that he changes his abdpad 3-4 times a day because of the wound dressing frequently falls out and has to be replaced at least twice a day. He reports that the drainage is decreasing. SN notes 2-3 + edema to lower legs and feet. Pt currently has velcro compressoin devices from ankles to knees. See intervention summary for education details. Patient demonstrated a need for further skilled SN services for wound/skin care. Current Discharge plan: self-care RECOMMENDATION: Next visit to focus on (be specific): wound assessment and care. documented in this encounterTr[facility]03-03-2023 Miscellaneous Notes* SN Routine - Mely Roblero RN - 10/03/2022 12:02 PM EST SITUATION: Half-Way routine visit completed today. mother also present during today's visit. patient reports the following: Allergies--reviewed Medications--reviewed current medications Falls--None BACKGROUND: Reason for Home Care: wound care ASSESSMENT: SN greeted at door by caregiver. Upon entrance patient found in bed Patient appears in no acute distress. Vitals (see flow sheet for details): stable SN findings today: Pt presents today in his bed witing for SN arrival SN dressing change done this visit Pt tolerated well. Pt express he feels as if his lega re getting larger SN measured and legs measure the same at 62cm the largest part across the calf. Pt has not yet received his compression sock. SN palced call to [employer] and they express his insurance will not pay for them SN placed call to [facility]OT[facility] Elias and she palced an immediate order to [employer] for drop ship of two pairs of size j tubi texturing machine fixer. Pt placed call to his rn case manager hospice and left message for her . See intervention summary for education details. Patient demonstrated a need for further skilled SN services for chronic disease management & education, medication education and wound/skin care. Current Discharge plan: self-care and family support RECOMMENDATION: Next visit to focus on (be specific): wound care did he get tubi flatbed stitcher? documented in this encounterTr[facility]03-01-2023 Miscellaneous Notes* Telephone Encounter - Rigoberto Romano RN - 10/01/2022 10:29 AM EST error documented in this encounterTr[facility]03-01-2023 Miscellaneous Notes* CARE COORDINATION - Rigoberto Romano RN - 10/01/2022 10:25 AM EST SN contacted Dr. Norris' office, VM left regarding decreasing of sSN visits to twice weekly per patient request beginning week of 09/28/22. SN left a call back of [phone]. documented in this encounterTr[facility]02-27-2023 Miscellaneous Notes* SN Routine - Mely Roblero RN - 09/29/2022 12:34 PM EST SITUATION: Half-Way routine visit completed today. Mother also present during today's visit. patient reports the following: Allergies--reviewed Medications--reviewed current medications Falls--None DME-Reviewed BACKGROUND: Reason for Home Care: abscess ASSESSMENT: SN greeted at door by caregiver. Upon entrance patient found in bed Patient appears in no acute distress. Vitals (see flow sheet for details): stable SN findings today: Pt presenta today laying across his bed. he uses a cane for assist. His Mother is present. Wound care done this visit Pt tolerated well. Pt express he would like his visits reducedto M/F. SN noted. Pt express he has been having a cough with increased congestion. Lungs are clear.Pt express his MD placed him on tesslon pearls for his cough. Educated Pt on deep breathing, takingmeds as directed monitoring weights and edema, for s/s of COPD exacerbation. and using inhalers as directed Pt expressed understanding See intervention summary for education details. Patient demonstrated a need for further skilled SN services for chronic disease management & education, medication education and wound/skin care. Current Discharge plan: self-care and family support RECOMMENDATION: Next visit to focus on (be specific): how is cough? taking meds? wound care documented in this encounterTr[facility]02-22-2023 Miscellaneous Notes* SN Routine - Mely Roblero RN - 09/24/2022 1:31 PM EST SITUATION: Half-Way routine visit completed today. Mother also present during today's visit. patient reports the following: Allergies--reviewed Medications--reviewed current medications Falls--None DME-Reviewed and added to chart BACKGROUND: Reason for Home Care: wound care ASSESSMENT: SN greeted at door by caregiver. Upon entrance patient found in bed Patient appears in no acute distress. Vitals (see flow sheet for details): stable SN findings today: Pt presents today in his bed he goes to his room just prior to SN arrival and transfers back to his recliner at the completion of visits he uses a cabne for assist. He express he notes his BLE are having increased edema, he has no increased SOB. his Tubi flatbed stitcher have not yet arrivedhe has compression devices but the material is beginning to rip and they are falling down with am bulation. Educated to try wearing when sitting as they will still give him some compression. Educatedon low sodium elevation low fat diet and mobiltiy to assist with his edema he expressed understanding. Wound care done this visit. Pt toelrated well he requests with continued improvement of his wound he would like to reduce visists to 2x week next week SN. Pt expressed understanding. See intervention summary for education details. Patient demonstrated a need for further skilled SN services for chronic disease management & education, medication education and wound/skin care. Current Discharge plan: self-care and family support RECOMMENDATION: Next visit to focus on (be specific): wound care did he get his tubi flatbed stitcher how is edema documented in this encounterTr[facility]02-17-2023 Miscellaneous Notes* CARE COORDINATION - Rigoberto Romano RN - 09/19/2022 7:02 AM EST SN contacted Dr. Dillon Norris on 09/19/22 for the following: unmad home nurse visit, pt declined stating he is not feeling well. documented in this encounterTr[facility]02-15-2023 Miscellaneous Notes* CARE COORDINATION - Mely Roblero RN - 09/17/2022 3:03 PM EST SN contacted Dr. Dillon Norris DO on 09-17-22 for the following: missed visit , Message left with MdNurse documented in this encounterTr[facility]02-10-2023 Miscellaneous Notes* CARE COORDINATION - Rigoberto Romano RN - 09/12/2022 8:02 AM EST SN contacted Dr. Dillon Norris on 09/12/22 for the following: unmade visit, cg'r to perform wound care this date. VM left with call back of [phone]. documented in this encounterTr[facility]02-06-2023 Miscellaneous Notes* SN Routine - Mely Roblero RN - 09/08/2022 12:10 PM EST SITUATION: Half-Way routine visit completed today. mother also present during today's visit. patient reports the following: Allergies--reviewed Medications--reviewed current medications Falls--None DME-Reviewed BACKGROUND: Reason for Home Care: wound care, COPD ASSESSMENT: SN greeted at door by caregiver. Upon entrance patient found in bed Patient appears in no acute distress. Vitals (see flow sheet for details): stable SN findings today: Pt presents today in his bed. Dressing changes done this visit. reinfroced dressing management, s/s of infection and when to [facility], O2 safety, monitoring blood sugars as directed. COPD management Pt express understanding See intervention summary for education details. Patient demonstrated a need for further skilled SN services for chronic disease management & education, medication education and wound/skin care. Current Discharge plan: self-care and family support RECOMMENDATION: Next visit to focus on (be specific): wound car documented in this encounterTr[facility]02-03-2023 Miscellaneous Notes* SN Routine - Mely Roblero RN - 09/05/2022 1:14 PM EST SITUATION: Half-Way routine visit completed today. mother and brother also present during today's visit. patient reports the following: Allergies--reviewed Medications--reviewed current medications Falls--None DME-Reviewed BACKGROUND: Reason for Home Care: wound care ASSESSMENT: SN greeted at door by caregiver. Upon entrance patient found in bed Patient appears in no acute distress. Vitals (see flow sheet for details): stable SN findings today: Pt presents today in the restroom he went to his bedroom with use of a cane for assist his mother and brother are present. Dressing perales doen this visit wound is pink with some granualtion. Pt tolerated well. Reinforced chaging wound dressing, pressure reduction diet high in protein vitamin c to promote healing, maintaining his blood sugars. pt expressed understanding. See intervention summary for education details. Patient demonstrated a need for further skilled SN services for chronic disease management & education, medication education and wound/skin care. Current Discharge plan: self-care and family support RECOMMENDATION: Next visit to focus on (be specific): wound care [facility] Miscellaneous Notes* SN Routine - Mely Roblero RN - 09/03/2022 11:54 AM EST SITUATION: Half-Way routine visit completed today. mother also present during today's visit. patient reports the following: Allergies--reviewed Medications--reviewed current medications Falls--None DME-Reviewed BACKGROUND: Reason for Home Care: wound care ASSESSMENT: SN greeted at door by caregiver. Upon entrance patient found in chair Patient appears in no acute distress. Vitals (see flow sheet for details): stable SN findings today: Pt presents today in his chair. jerrica gardner done this visit pt tolerated well. ptreinforced on continiued wound care monitoring for s/s of infection and when to report. Pt expressed understanding See intervention summary for education details. Patient demonstrated a need for further skilled SN services for chronic disease management & education, medication education and wound/skin care. Current Discharge plan: self-care and family support RECOMMENDATION: Next visit to focus on (be specific): wound care [facility] in [facility]Tr[facility]30[facility]23 Miscellaneous Notes* SN Routine - Mely Roblero RN - 09/01/2022 12:11 PM EST SITUATION: Half-Way routine visit completed today. mother also present during today's visit. patient reports the following: Allergies--reviewed Medications--reviewed current medications Falls--None DME-Reviewed BACKGROUND: Reason for Home Care: wound care, copd ASSESSMENT: SN greeted at door by caregiver. Upon entrance patient found in chair Patient appears in no acute distress. Vitals (see flow sheet for details): stable SN findings today: Pt presents today in his chair.His mother is present. wound care done this visit. SN measured Pt BLE for compression stockings per MD request SN called and left message with MD Nurses line. See intervention summary for education details. Patient demonstrated a need for further skilled SN services for chronic disease management & education, medication education and wound/skin care. Current Discharge plan: self-care, family support and chronic care clinic RECOMMENDATION: Next visit to focus on (be specific): wound care, did you hear on UTI, compression stockings? documented in [facility]Tr[facility]28-2023 Miscellaneous Notes* SN Routine - Jerrica Thakkar RN - 08/30/2022 9:46 AM EST SITUATION: Half-Way routine visit completed today. Parent also present during today's visit. patient reports the following: Allergies--reviewed Medications--reviewed current medications Falls--None DME-Reviewed and added to chart BACKGROUND: Reason for Home Care: wound care to perineal abscess ASSESSMENT: SN greeted at door by caregiver. Upon entrance patient found in chair Patient appears in no acute distress. Patient/CG concerns verbalized today: none Vitals (see flow sheet for details): stable SN findings today: A&Ox4. Nonlabored breathing at rest on 4LNC; lungs clear, diminished throughout. Patient becomes SOB with moderate exertion but recovers quickly. HRR. BSPx4. BLE 2+ chronic, pitting edema. SN performed wound care; patient tolerated well. SN educated patient on importance of medication compliance and keeping BLE elevated while seating. Patient on home oxygen. Patient states that he does smoke but not while using oxygen. SN reviewed oxygen safety with patient. See intervention summary for education details. Patient demonstrated a need for further skilled SN services for wound/skin care. Current Discharge plan: family support RECOMMENDATION: Next visit to focus on (be specific): Wound care documented in this [facility]Tr[facility]01[facility]26-2023 Miscellaneous Notes* SN Routine - Mely Roblero RN - 08/28/2022 2:46 PM EST SITUATION: Half-Way routine visit completed today. brother also present during today's visit. patient reports the following: Allergies--reviewed Medications--reviewed current medications Falls--None DME-Reviewed BACKGROUND: Reason for Home Care: wound care COPD ASSESSMENT: SN greeted at door by patient utilizing cane and demonstrates stable gait. Patient appears in no acute distress. Vitals (see flow sheet for details): stable SN findings today: Pt presents today in his home his brother is pesent he uses a cane for assist. Wound care done this visit. reinforced continued wound care, Urine obtained and taken to [facility] evelyn. FOR UA/CS Pt tolerated well. See intervention summary for education details. Patient demonstrated a need for further skilled SN services for chronic disease management & education, medication education and wound/skin care. Current Discharge plan: self-care and family support RECOMMENDATION: Next visit to focus on (be specific): UA results? measure for compression stockings and call shayy MEZA documented in this encounterTr[facility]01-23-2023 Miscellaneous Notes* SN Routine - Mely Roblero RN - 08/25/2022 12:26 PM EST SITUATION: Half-Way routine visit completed today. mom also present during today's visit. patient and caregiver reports the following: Allergies--reviewed Medications--reviewed current medications Falls--None DME-Reviewed BACKGROUND: Reason for Home Care: wound care ASSESSMENT: SN greeted at door by caregiver. Upon entrance patient found in chair Patient appears in no acute distress. Vitals (see flow sheet for details): stable SN findings today: pt presents today in his home using a cane his mother is present. Pt express he has been having some burning with urinaton. SN message left on MD Nurse line awaiting call. Dressingchange done this visit Pt tolerated well. See intervention summary for education details. Patient demonstrated a need for further skilled SN services for chronic disease management & education, medication education and wound/skin care. Current Discharge plan: self-care and family support RECOMMENDATION: Next visit to focus on (be specific): wound care did he hear back from MD still burning with urination documented in this encounterTr[facility]01-20-2023 Miscellaneous Notes* SN Routine - Cathy Perez RN - 08/22/2022 11:31 AM EST SITUATION: Half-Way routine visit completed today. mother also present during today's visit. patient reports the following: Allergies--reviewed Medications--reviewed current medications Falls--None BACKGROUND: Reason for Home Care: wound care ASSESSMENT: SN greeted at door by caregiver. Upon entrance patient found in living room, ambulating to bedroom Patient appears in no acute distress. Patient/CG concerns verbalized today: pt reports that his bowel habits have been irregular, he was having constipatioin but had loose stool this am. Vitals (see flow sheet for details): stable SN findings today: Pt is quites short of breath with activity, SN tried to reinforce instructions on pursed lip breathing, pt does do at times. He is wearing the oygen and states that he is still smoking some. He reports that he does not smoke while wearing the oxygen but does smoke in the house. SN emphasized to pt the dangers of this and that the concentrator should be turned off and nasal cannula off for at least 10 minutes before smoking. Lungs are clear. L perianal wound is pink and moist,pt had already removed packing for his shower this am. He is washing and rinsing will with Mark baby wash and hand held shower about every 2 days. SN instructed pt to irrigate the area well every day before his dressing changes and that if bowels move after the packing is done, may need to do wound care again if dressing is soiled. Pt verbalizes good understanding. Pt reports that the Levaquinwas stopped due to stomach cramps and pain, he continues on the doxycycline and the Flagyl. Wound is pink and moist with serous drainage. No surrounding redness, no foul odor, no active purulent drainage. See intervention summary for education details. Patient demonstrated a need for further skilled SN services for wound/skin care. Current Discharge plan: self-care and family support RECOMMENDATION: Next visit to focus on (be specific): wound assessment and care. documented in this encounterTr[facility]01-18-2023 Miscellaneous Notes* SN SOC - Christine Collazo RN - 08/20/2022 10:15 AM EST SITUATION: Half-Way SOC visit completed today. mother also present during today's visit. patient reports the following: Allergies--reviewed Medications--full medication reconciliation completed Falls--None DME-Reviewed and added to chart BACKGROUND: Discharged/[facility]erral from [facility] on 08/18[facility]22 following treatment for perineal abscess. Pertinent referral information or other diagnoses that may affect plan of care: obesity, hypoglycemia syndrome, Hypercholesteremia ASSESSMENT: SN greeted at door by caregiver. Upon entrance patient found in chair Patient appears in no acute distress. Patient lives at home with mother. Home environment: clean, uncluttered and has pets: 2 dogs, 1 cat. SOC booklet reviewed & completed with patient and consent obtained for Home Care services. Patient/CG concerns verbalized today: no concerns noted Vitals (see flow sheet for details): stable SN findings today: Patient pleasent and cooperative with visit. HRR, LSCTA and BSx4. Patient reports that pain is unchanged but manageable. Medication reconcilation completed, severe interactions noted, Dr. Hoffman notified. Patient requires set up help with some ADLs. Extensively reviewed oxygen safety r/t dx nicotine use and patient currently utlizes oxygen, patient and caregiver verbalized understanding. Wound care completed, tolerated well, no s/s of infection noted, caregiver education provided regarding wound care with verbalized understanding. See intervention summary for education details and skills performed. Plan of care and visit frequency established with patient and plan of care agreed upon. Patient demonstrated a need for further skilled SN services for chronic disease management & education, medication education, wound/skin care and safety. RECOMMENDATION: Visit Frequency: 2w1, 3w8 Need for additional services: Patient agreeable to N/A referrals. 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 Additional concerns to be followed up on: NONE Next visit to focus on (be specific): Continue with SNV for disease management, CP assessment and wound care documented in this encounterTr[facility]01-17-2023 Miscellaneous Notes* Telephone Encounter - Fani HERBERTH Suarez - 08/19/2022 9:29 AM EST Welcome Home Call: a. Date and Time: 9:30 AM 08/19/2022 b. Contact name/relationship: Cayla ribeiro. Have you been active with any Home Care company in the last 60 days(such as help with bathing, filling medications, checking your blood pressure) ? No. d. Was patient given Flu shot this Season (After Apr,): No: e. [facility] will be providing your care, are you agreeable to starting these services? yes f. Do you have any upcoming appointments in the next few days, or restrictions to your schedule? no g. Caregiver: No h. Confirmed Visited Location and preferred #: yes Please keep our your medications both over the counter and prescribed out for the home care to review, your hospital discharge instructions and write down any questions you might have. In order to maintain a safe environment for our caregivers, [facility] requires anyanimals or weapons present in the home be located in a secured location. Our clinicians will call you the night before or the morning of the appointment. Their # may come up restricted but they'll leave a VM for you. In case you have any questions or concerns in the meantime, our # is [phone], option [phone] Thank you for your time and have a great day. Fani Suarez LPN Central Admissions Intake Nurse documented in this encounterTr[facility]01-17-2023 Miscellaneous Notes* Telephone Encounter - Dillon Martinez LPN - 08/19/2022 9:13 AM EST SN spoke wit Dillon @ Dr Norris office, she confirmed that pcp will follow for [facility] services Dillon Martinez LPN documented in this encounterTr[facility]01-17-2023 Miscellaneous Notes* Telephone Encounter - Lorna German, [facility] - 08/19/2022 6:58 AM EST Patient was discharged evening on 08/18/2022 and was leaving before his discharge med rec could be reviewed. I did speak with patient as he was leaving and reviewed medications with promise to call inthe morning to review medications. Notable medications that needed to be addressed from his home medications. Medications Added Albuterol MDI Vitamin C 500mg daily ASA 81mg daily Bumetanide 1mg that he takes in addition to his scheduled furosemide as needed Flonase Glipizide ER 2.5mg daily Duonebe nebulizer q6h prn Losartan 25mg bid (not losartan/HCTZ) Nicotine patch 21mg daily Medications Changed Furosemide is 20mg tablet 2 in the morning and 1 in the early afternoon He takes prednisone on a sliding scale and is currently using 10mg BID Gabapentin 100mg qhs (filled #90 on 04/02/22) Omeprazole is BID Medications Removed Tamsulosin Losartan/HCTZ Vtiamin B12 oral Vitamin B12 injection Dicyclomine Other notable medication issues Patient has been on doxycycline 100mg BID (filled #60 for 30 day supply on 07/09/2022) for suppression of these abscesses he gets. Per patient he interrupted the doxycycline recently when he was prescribed a Z-pack. He believes this is what may have resulted in his most recent presentation and hospitalization Patient also had Trulicity filled but did not start taking yet. He should follow with PCP for this PLAN d/w discharging [facility] on rounds 08/19/22 Patient was discharged with 7 days of levofloxacin and metronidazole. Resume home doxycycline Patient said the heart group in [place] wanted him on ASA, Brilinta, and Pradaxa. 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 Patient has bumetanide he uses as needed in addition to the furosemide if he needs it. Advised patient to clarify with PCP who is prescribing both. Called an discussed all the above with the patient who verbalized understanding. documented in this encounterTrinity [facility]01-16-2023 NoteHNO ID: [id number] Author: China Laurent DO Service: Hospital Medicine Author Type: Resident Type: Progress Notes Filed: 08/18/2022 7:38 PM Note Text: Documentation Query Based on your medical judgment of the clinical indicators outlined below, please clarify the condition: (Please type X next to your response and sign) Dr. Abdalla, Clinical Indicators: 08/16/22, ED: ...he is on oxygen at 4 L per minute via nasal cannula as per his baseline home oxygen. 08/17/22, Hospital Medicine: ...COPD on home oxygen 4 L Treatment: NC 4 L Please clarify the acuity and type of Respiratory Failure (diagnosis associated with the above clinical indicators). x Chronic Hypoxic Clinically unable to determine Other, please specify Elizabeth Laurent DO PGY1, Internal Medicine August 18, 2022 7:38 [facility]01-16-2023 NoteHNO ID: [id number] Author: China Laurent DO Service: Hospital Medicine Author Type: Resident Type: Progress Notes Filed: 08/18/2022 10:44 AM Note Text: Attestation signed by Mar Hoffman MD at 08/18/2022 6:45 PM (Updated) I saw and evaluated the patient. Discussed with the resident and agree with resident's findings and plan as documented in the resident's note. Of note, patient refused to stay beyond today. Discussed with him the desire to get better culture data to guide Rx, but patient was adamant about leaving. I did not make patient leave AMA so he could still receive [facility]. HOUSE MEDICINE SERVICE (HMS) PROGRESS NOTE PATIENT NAME: Cayla Granados ADMITTED FOR: Perianal abscess LOS: 2 days Subjective INTERVAL EVENTS Overnight Acute Events: No. - Patient continues to endorse pain associated with his perianal abscess, but states it is tolerable. States that they have not yet used the lidocaine cream in that area to help with pain during dressing changes - Patient states that he is going home today and will have ride pick him up at 1:30 today. [facility] Denies abdominal pain, nausea, vomiting, diarrhea, constipation, headaches, chest pain, shortness of breath. - Per patient's nurse, patient refusing some medications including insulin and lasix Today's pertinent results include: Vitals: Tmax: 36.8 HR: 83 BPs: 124/50 Saturatin% on 4 L I/O: -1750 cc's/hr Labs: CBC: WBC 13.90, Hgb 9.5, platelets 361 BMP: BUN 10, HOME ECONOMIST 0.91, NA 138, K 3.8, CO2 29 A1C: 7.5% Wound culture (08/17): No organisms seen. Moderate PML's Imaging: no new Consultation updates, all recs are appreciated: - General surgery: Signed off. Medical management and antibiotics per primary team. Recommend daily dressing changes and as needed if soiled. Patient is to keep area clean and dry. Objective OBJECTIVE No data found. Body mass index is 61.89 kg/m?., Hemoglobin A1C (%) Date Value 08/16/2022 7.5 Intake/Output Summary (Last 24 hours) at 08/18/2022 0722 Last data filed at 08/17/2022 1200 Gross per 24 hour Intake -- Output 1550 ml Net -1550 ml Physical Exam Vitals and nursing note reviewed. Constitutional: General: He is not in acute distress. Appearance: Normal appearance. He is obese. He is not ill-appearing or toxic-appearing. Eyes: General: No scleral icterus. Pupils: Pupils are equal, round, and reactive to light. Neck: Vascular: No carotid bruit. Cardiovascular: Rate and Rhythm: Normal rate and regular rhythm. Heart sounds: Normal heart sounds. No murmur heard. No gallop. Pulmonary: Effort: Pulmonary effort is normal. No respiratory distress. Breath sounds: Normal breath sounds. No wheezing or rales. Comments: Diminished breath sounds bilaterally Abdominal: General: Abdomen is flat. Bowel sounds are normal. There is no distension. Palpations: Abdomen is soft. Tenderness: There is no abdominal tenderness. Musculoskeletal: Cervical back: Neck supple. Right lower leg: Edema present. Left lower leg: Edema present. Skin: General: Skin is warm. Comments: Chronic venous stasis changes noted on bilateral LE from the feet to the level of midcalves Neurological: General: No focal deficit present. Mental Status: He is alert and oriented to person, place, and time. Mental status is at baseline. Psychiatric: Mood and Affect: Mood normal. Behavior: Behavior normal. LABORATORY: CBC: Recent Labs 08/18/2215 08/17/22 03508/16/222010 WBC 13.90* 12.69* 12.94* HB 9.5* 9.1* 8.7* HCT 36.0* 33.4* 32.3* PLT 361 340 347 MCV 79.3* 77.1* 77.1* RDWCV 18.7* 18.3* 18.5* COAG: No results for input(s): APTT, INR in the last 168 hours. CMP: Recent Labs 08/18/22 0615 08/17/22 0351 08/16/222010 GLUC 133* 158* 90 NA 138 139 139 K 3.8 4.1 3.7 CHLOR 100 102 101 CO2 29 28 29 ANION 9 9 9 BUN 10 10 10 CREAT 0.91 0.91 0.91 URINALYSIS: Recent Labs 08/17/22 0353 SPGR 1.024 UGLUC Negative UBILI Negative UKET Negative UHB 1+* UPROT Trace UWBC 0-5 /HPF Cardiac:No results for input(s): CKTEST, CKMB, CKMBP, TROPONIN, BNP in the last 168 hours. Microbiology: Positive Micro-30 Days No results found for the last 720 hours. IMAGING: No results found for: LVEF MEDICATIONS: IV infusions: Scheduled medications:miconazole, 1 application, BID nicotine, 1 Patch, DAILY And nicotine -- REMOVE patch, , DAILY And nicotine - verify patch, , q 8 H clindamycin, 900 mg, q 8 H vancomycin dosing and monitoring per pharmacy, , As Directed levoFLOXacin, 750 mg, DAILY (6 AM) losartan, 25 mg, BID metoprolol tartrate (short acting), 25 mg, q 12 H atorvastatin, 40 mg, AT BEDTIME insul (more content not included)...[facility]01-15-2023 Note HNO ID: [id number] Author: Robson Espinosa MD Service: Hospital Medicine Author Type: Resident Type: Progress Notes Filed: 08/17/2022 2:50 PM Note Text: Attestation signed by Chance Abdalla MD at 08/17/2022 9:01 PM [facility] MEDICINE SERVICE ATTENDING ATTESTATION: I saw and evaluated the patient on rounds on 08/17/22. Discussed case with the medicine team and agree with resident's findings and plan as documented in the resident's note. Chance Abdalla MD [facility] PROGRESS NOTE Patient Name: Cayla Granados Date: August 17, 2022 Admission for: Perianal abscess LOS:1 Subjective HPI Mr. Cayla Granados is a 52 year old male with PMH: -Hypertension on losartan mg 25 BID, metoprolol tartrate 25 BID -Hyperlipidemia on atorvastatin 40 mg -Diabetes on Trulicity 0.75mg/0.5ml, 0.5ml once weekly -CAD s/p stenting RCA aspirin 81mg and brilinta 90mg BID -Chronic venous congestion on Betamide 1 mg BID as needed, furosemide 20 mg in the morning and 10 mg in the afternoon -History of deep vein thrombosis on dabigatran 150 mg BID -Obesity -Hypothyroidism on thyroxine -BERT -COPD on home oxygen 4 L -Anxiety disorder -History of Fourniers's gangrene -History of cellulitis -History of perianal abscess -Rheumatoid arthritis, on chronic steroids currently 10mg BID -GERD on omeprazole 40mg presents to the emergency department complaints of perianal abscess. Of note patient was in an outside facility where he was worked up for perianal abscess/necrotizing fasciitis/Grecia's gangrene. Work-up was negative for necrotizing fasciitis and Grecia's gangrene, currently being treated as perianal abscess. States he had onset of pain around his perianal region/ swelling and redness Thursday this week, which gradually progressed. He had sudden onset of drainage around the perianal region, which was yellowish to red in color, Thursday. Presented to [facility] for the management of the same. Denies fever. States has had prior episodes of perianal abscess. INTERVAL EVENTS Subjective No acute events overnight. Patient frustrated from hospital transferring from a [facility] to [facility] and waiting in the ER room until bed was available. This morning, patient was sitting at bedside comfortably tolerating 4 L nasal cannula not in any acute distress. Patient denies fever, chills, headache, sore throat, shortness of breath at rest, chest pain, nausea, vomiting, constipation, diarrhea, urinary symptoms, lower limb swelling. He mentions that this issue started on Thursday, when he noticed that going to the bathroom he found some blood and pus that warranted him to go to the hospital. He also expressed wanting to go out of the hospital as soon as possible as that he can take care of himself and he has wound care as outpatient that he follows up with regularly to continue such care. Condition was explained to patient concerning following culture and taking IV antibiotics. Patient is considering to leave AMA or leave tomorrow in the morning. If patient to leave AMA, consider discharge on: -Levofloxacin 500mg once daily for 7 days -Doxycycline 100mg BID for 7 days - Clindamycin 450mg TID for 7 days Objective OBJECTIVE BP 120/71 Pulse 87 Temp 36.4 ?C (97.5 ?F) (Oral) Resp 20 Ht 185.4 cm (6' 0.99 ) Wt (!) 212.7 kg (469 lb) SpO2 93% BMI 61.89 kg/m? Intake/Output Summary (Last 24 hours) at 08/17/2022 1058 Last data filed at 08/17/2022 0605 Gross per 24 hour Intake 2150 ml Output 525 ml Net 1625 ml LABORATORY: CBC: Recent Labs 08/17/2235008/16/222010 WBC 12.69* 12.94* HB 9.1* 8.7* HCT 33.4* 32.3* PLT 340 347 MCV 77.1* 77.1* RDWCV 18.3* 18.5* COAG: No results for input(s): APTT, INR in the last 168 hours. CMP: Recent Labs 08/17/2235008/16/222010 GLUC 158* 90 NA 139 139 K 4.1 3.7 CHLOR 102 101 CO2 28 29 ANION 9 9 BUN 10 10 CREAT 0.91 0.91 URINALYSIS: Recent Labs 08/17/22352 SPGR 1.024 UGLUC Negative UBILI Negative UKET Negative UHB 1+* UPROT Trace UWBC 0-5 /HPF Hemoglobin A1C (%) Date Value 08/16/2022 7.5 No results found for: LVEF IMAGING: CT pelvis: (outside facility) Inflammatory changes along the perianal soft tissue with tiny pockets of air which may be due to skin defect, just fat stranding and trace fluid. Early minimal collection of early abscess formation in the perianal soft tissue is possible. No gas-forming inflammation in the ischiorectal fossa, urogenital diaphragm or scrotum. There is edema and trace fluid extending along the perineum and scrotum however no gas forming inflammation detected at time of imaging. Physical Exam Constitutional: General: He is not in acute distress. Appear (more content not included)...[facility] LAUREN DE SOUZA MD: PERFORM, SIGN, VERIFY Event Display: Anesthesiology Progress Note Authored Date: Patient: CAYLA GRANADOS Age: 52 years Sex: Male : 1970 Associated Diagnoses: None Author: LAUREN DE SOUZA MD Postoperative Information Post Operative Info: Post op day: Post Anesthesia Care Unit. Patient location: [facility]/Cardiac Same Day Unit. Assessment Postanesthesia assessment Vitals: Vital signs from flowsheet : Vital Signs 06/29/2023 10:30 EST Heart Rate Monitored 107 bpm HI Respiratory Rate 20 br/min Systolic Blood Pressure Non-Invasive 155 mmHg HI Diastolic Blood Pressure Non-Invasive 60 mmHg 06/29/2023 10:25 EST Respiratory Rate 22 br/min HI Systolic Blood Pressure Non-Invasive 148 mmHg HI Diastolic Blood Pressure Non-Invasive 65 mmHg 06/29/2023 10:20 EST Respiratory Rate 22 br/min HI Systolic Blood Pressure Non-Invasive 140 mmHg Diastolic Blood Pressure Non-Invasive 72 mmHg 06/29/2023 10:15 EST Heart Rate Monitored 114 bpm HI Respiratory Rate 24 br/min HI Systolic Blood Pressure Non-Invasive 104 mmHg Diastolic Blood Pressure Non-Invasive 62 mmHg 06/29/2023 10:05 EST Heart Rate Monitored 113 bpm HI Respiratory Rate 20 br/min Systolic Blood Pressure Non-Invasive 163 mmHg HI Diastolic Blood Pressure Non-Invasive 109 mmHg >HHI 06/29/2023 10:00 EST Temperature Skin 36.2 DegC Heart Rate Monitored 110 bpm HI Heart Rate Monitored 108 bpm HI Respiratory Rate 20 br/min Respiratory Rate 15 br/min Systolic Blood Pressure Non-Invasive 159 mmHg HI Systolic Blood Pressure Non-Invasive 150 mmHg HI Diastolic Blood Pressure Non-Invasive 47 mmHg <LLOW Diastolic Blood Pressure Non-Invasive 44 mmHg <LLOW 06/29/2023 9:50 EST Respiratory Rate - Anes 31 br/min br/min 06/29/2023 9:47 EST Respiratory Rate - Anes 23 br/min br/min Systolic Blood Pressure Non-Invasive 124 mmHg mmHg Diastolic Blood Pressure Non-Invasive 58 mmHg mmHg 06/29/2023 9:46 EST Respiratory Rate - Anes 21 br/min br/min 06/29/2023 9:45 EST Temperature (Route Not Specified) 36.5 DegC DegC Heart Rate Monitored 99 bpm bpm Respiratory Rate - Anes 25 br/min br/min 06/29/2023 9:41 EST Systolic Blood Pressure Non-Invasive 133 mmHg mmHg Diastolic Blood Pressure Non-Invasive 67 mmHg mmHg 06/29/2023 9:40 EST Heart Rate Monitored 92 bpm bpm Respiratory Rate - Anes 25 br/min br/min 06/29/2023 9:36 EST Systolic Blood Pressure Non-Invasive 129 mmHg mmHg Diastolic Blood Pressure Non-Invasive 58 mmHg mmHg 06/29/2023 9:35 EST Heart Rate Monitored 97 bpm bpm Respiratory Rate - Anes 23 br/min br/min 06/29/2023 9:31 EST Systolic Blood Pressure Non-Invasive 121 mmHg mmHg Diastolic Blood Pressure Non-Invasive 59 mmHg mmHg 06/29/2023 9:30 EST Temperature (Route Not Specified) 36.5 DegC DegC Heart Rate Monitored 98 bpm bpm Respiratory Rate - Anes 24 br/min br/min 06/29/2023 9:26 EST Systolic Blood Pressure Non-Invasive 120 mmHg mmHg Diastolic Blood Pressure Non-Invasive 56 mmHg mmHg 06/29/2023 9:25 EST Heart Rate Monitored 99 bpm bpm Respiratory Rate - Anes 26 br/min br/min 06/29/2023 9:21 EST Systolic Blood Pressure Non-Invasive 111 mmHg mmHg Diastolic Blood Pressure Non-Invasive 59 mmHg mmHg 06/29/2023 9:20 EST Heart Rate Monitored 100 bpm bpm Respiratory Rate - Anes 25 br/min br/min 06/29/2023 9:16 EST Systolic Blood Pressure Non-Invasive 103 mmHg mmHg Diastolic Blood Pressure Non-Invasive 61 mmHg mmHg 06/29/2023 9:15 EST Temperature (Route Not Specified) 36.5 DegC DegC Heart Rate Monitored 101 bpm bpm Respiratory Rate - Anes 24 br/min br/min 06/29/2023 9:11 EST Systolic Blood Pressure Non-Invasive 108 mmHg mmHg Diastolic Blood Pressure Non-Invasive 58 mmHg mmHg 06/29/2023 9:10 EST Heart Rate Monitored 101 bpm bpm Respiratory Rate - Anes 22 br/min br/min 06/29/2023 9:06 EST Systolic Blood Pressure Non-Invasive 95 mmHg mmHg Diastolic Blood Pressure Non-Invasive 37 mmHg mmHg 06/29/2023 9:05 EST Heart Rate Monitored 116 bpm bpm Respiratory Rate - Anes 15 br/min br/min 06/29/2023 9:01 EST Systolic Blood Pressure Non-Invasive 102 mmHg mmHg Diastolic Blood Pressure Non-Invasive 62 mmHg mmHg 06/29/2023 9:00 EST Temperature (Route Not Specified) 36.5 DegC DegC Heart Rate Monitored 120 bpm bpm Respiratory Rate - Anes 26 br/min br/min 06/29/2023 8:56 EST Systolic Blood Pressure Non-Invasive 123 mmHg mmHg Diastolic Blood Pressure Non-Invasive 55 mmHg mmHg 06/29/2023 8:55 EST Heart Rate Monitored 100 bpm bpm Respiratory Rate - Anes 26 br/min br/min 06/29/2023 8:51 EST Systolic Blood Pressure Non-Invasive 113 mmHg mmHg Diastolic Blood Pressure Non-Invasive 56 mmHg mmHg 06/29/2023 8:50 EST Heart Rate Monitored 98 bpm bpm Respiratory Rate - Anes 26 br/min br/min 06/29/2023 8:46 EST Systolic Blood Pressure Non-Invasive 118 mmHg mmHg Diastolic Blood Pressure Non-Invasive 54 mmHg mmHg 06/29/2023 8:45 EST Temperature (Route Not Specified) 36.5 DegC DegC Heart Rate Monitored 97 bpm bpm Respiratory Rate - Anes 26 br/min br/min 06/29/2023 8:41 EST Systolic Blood Pressure Non-Invasive 118 mmHg mmHg Diastolic Blood Pressure Non-Invasive 57 mmHg mmHg 06/29/2023 8:40 EST Heart Rate Monitored 100 bpm bpm Respiratory Rate - Anes 29 br/min br/min 06/29/2023 8:36 EST Systolic Blood Pressure Non-Invasive 109 mmHg mmHg Diastolic Blood Pressure Non-Invasive 62 mmHg mmHg 06/29/2023 8:35 EST Heart Rate Monitored 100 bpm bpm Respiratory Rate - Anes 31 br/min br/min 06/29/2023 8:31 EST Systolic Blood Pressure Non-Invasive 89 mmHg mmHg (In Error) Diastolic Blood Pressure Non-Invasive 61 mmHg mmHg (In Error) 06/29/2023 8:30 EST Temperature (Route Not Specified) 36.5 DegC DegC Heart Rate Monitored 99 bpm bpm Respiratory Rate - Anes 31 br/min br/min Systolic Blood Pressure Non-Invasive 119 mmHg mmHg 06/29/2023 8:26 EST Respiratory Rate - Anes 27 br/min br/min Systolic Blood Pressure Non-Invasive 102 mmHg mmHg Diastolic Blood Pressure Non-Invasive 55 mmHg mmHg 06/29/2023 8:25 EST Heart Rate Monitored 101 bpm bpm Respiratory Rate - Anes 27 br/min br/min 06/29/2023 8:22 EST Respiratory Rate - Anes 20 br/min br/min 06/29/2023 8:21 EST Respiratory Rate - Anes 26 br/min br/min 06/29/2023 8:20 EST Heart Rate Monitored 102 bpm bpm Respiratory Rate - Anes 26 br/min br/min (Modified) Systolic Blood Pressure Non-Invasive 103 mmHg mmHg Diastolic Blood Pressure Non-Invasive 57 mmHg mmHg 06/29/2023 8:17 EST Respiratory Rate - Anes 26 br/min br/min 06/29/2023 8:16 EST Respiratory Rate - Anes 30 br/min br/min 06/29/2023 8:15 EST Temperature (Route Not Specified) 36.5 DegC DegC (Modified) Heart Rate Monitored 100 bpm bpm Respiratory Rate - Anes 31 br/min br/min Systolic Blood Pressure Non-Invasive 106 mmHg mmHg Diastolic Blood Pressure Non-Invasive 47 mmHg mmHg 06/29/2023 8:11 EST Temperature (Route Not Specified) 36.5 DegC DegC 06/29/2023 8:10 EST Respiratory Rate - Anes 0 br/min br/min Systolic Blood Pressure Non-Invasive 147 mmHg mmHg Diastolic Blood Pressure Non-Invasive 118 mmHg mmHg 06/29/2023 6:54 EST Temperature Oral 36.5 DegC Heart Rate Monitored 85 bpm Respiratory Rate 20 br/min Systolic Blood Pressure Non-Invasive 129 mmHg Diastolic Blood Pressure Non-Invasive 44 mmHg <LLOW Mean Arterial Pressure (NBP) 68 mmHg Blood Pressure Method Automatic Blood Pressure Location Right arm Blood Pressure Cuff Size Large Reason For Taking VItal Signs Routine 06/29/2023 6:37 EST Peripheral Pulse Rate 83 bpm Respiratory Rate 20 br/min 06/29/2023 3:30 EST Temperature Oral 36.8 DegC Heart Rate Monitored 100 bpm Respiratory Rate 22 br/min HI Systolic Blood Pressure Non-Invasive 140 mmHg Diastolic Blood Pressure Non-Invasive 55 mmHg LOW Reason For Taking VItal Signs Routine 06/28/2023 22:42 EST Heart Rate Monitored 86 bpm Respiratory Rate 20 br/min Systolic Blood Pressure Non-Invasive 138 mmHg Diastolic Blood Pressure Non-Invasive 51 mmHg LOW Reason For Taking VItal Signs Routine 06/28/2023 20:37 EST Temperature Oral 36.8 DegC Heart Rate Monitored 92 bpm Respiratory Rate 22 br/min HI Systolic Blood Pressure Non-Invasive 124 mmHg Diastolic Blood Pressure Non-Invasive 56 mmHg LOW Blood Pressure Method Manual Blood Pressure Location Left arm Blood Pressure Cuff Size Large Reason For Taking VItal Signs Routine 06/28/2023 20:00 EST Heart Rate Monitored 97 bpm Respiratory Rate 22 br/min HI Reason For Taking VItal Signs Routine 06/28/2023 19:12 EST Peripheral Pulse Rate 86 bpm Respiratory Rate 24 br/min HI 06/28/2023 17:54 EST Heart Rate Monitored 83 bpm Respiratory Rate 22 br/min HI Systolic Blood Pressure Non-Invasive 124 mmHg Diastolic Blood Pressure Non-Invasive 68 mmHg 06/28/2023 16:33 EST Heart Rate Monitored 85 bpm Respiratory Rate 22 br/min HI Systolic Blood Pressure Non-Invasive In Error mmHg (In Error) Diastolic Blood Pressure Non-Invasive In Error mmHg (In Error) Blood Pressure Method In Error (In Error) Blood Pressure Location In Error (In Error) Blood Pressure Cuff Size In Error (In Error) 06/28/2023 15:40 EST Temperature Oral 36.5 DegC Heart Rate Monitored 95 bpm Respiratory Rate 24 br/min HI Systolic Blood Pressure Non-Invasive 145 mmHg HI Diastolic Blood Pressure Non-Invasive 75 mmHg Mean Arterial Pressure (NBP) 87 mmHg Blood Pressure Method Automatic Blood Pressure Location Left arm Blood Pressure Cuff Size Large Reason For Taking VItal Signs Routine 06/28/2023 15:10 EST Heart Rate Monitored 84 bpm Heart Rate Monitored 85 bpm 06/28/2023 12:35 EST Heart Rate Monitored 86 bpm Respiratory Rate 20 br/min 06/28/2023 11:06 EST Heart Rate Monitored 85 bpm 06/28/2023 10:19 EST Temperature Oral 36.6 DegC Heart Rate Monitored 91 bpm Respiratory Rate 20 br/min Systolic Blood Pressure Non-Invasive 124 mmHg Diastolic Blood Pressure Non-Invasive 60 mmHg Blood Pressure Method Automatic Blood Pressure Location Left arm Blood Pressure Cuff Size Large Reason For Taking VItal Signs Routine 06/28/2023 7:27 EST Heart Rate Monitored 91 bpm Respiratory Rate 22 br/min HI 06/28/2023 7:07 EST Heart Rate Monitored 93 bpm 06/28/2023 7:00 EST Peripheral Pulse Rate 86 bpm Respiratory Rate 22 br/min HI 06/28/2023 6:36 EST Heart Rate Monitored 91 bpm Respiratory Rate 22 br/min HI Systolic Blood Pressure Non-Invasive 137 mmHg Diastolic Blood Pressure Non-Invasive 46 mmHg <LLOW Mean Arterial Pressure (NBP) 72 mmHg 06/28/2023 5:13 EST Heart Rate Monitored 91 bpm 06/28/2023 3:48 EST Heart Rate Monitored 40 bpm LOW 06/28/2023 3:31 EST Temperature Oral 37.2 DegC Apical Heart Rate 38 bpm <LLOW (Modified) Respiratory Rate 24 br/min HI Systolic Blood Pressure Non-Invasive 158 mmHg HI Diastolic Blood Pressure Non-Invasive 54 mmHg LOW Blood Pressure Method Automatic Blood Pressure Location Left arm Blood Pressure Cuff Size Large Reason For Taking VItal Signs Admission , Oxygen Therapy : Oxygen Therapy & Oxygenation Information 06/29/2023 10:30 EST Oxygen Therapy Nasal cannula 0L-6L Oxygen Saturation 90 % LOW Oxygen Flow Rate 6 06/29/2023 10:25 EST Oxygen Therapy Nasal cannula 0L-6L Oxygen Saturation 91 % LOW Oxygen Flow Rate 6 06/29/2023 10:20 EST Oxygen Therapy Nasal cannula 0L-6L Oxygen Saturation 90 % LOW Oxygen Flow Rate 6 06/29/2023 10:15 EST Oxygen Therapy Nasal cannula 0L-6L Oxygen Saturation 91 % LOW Oxygen Flow Rate 6 06/29/2023 10:05 EST Oxygen Therapy Nasal cannula 0L-6L Oxygen Saturation 88 % <LLOW Oxygen Flow Rate 6 06/29/2023 10:00 EST Oxygen Therapy Nasal cannula 0L-6L Oxygen Therapy Nasal cannula 0L-6L Oxygen Saturation 92 % LOW Oxygen Saturation 90 % LOW Oxygen Flow Rate 6 Oxygen Flow Rate 6 06/29/2023 9:47 EST Oxygen Saturation 95 % % 06/29/2023 9:46 EST Oxygen Saturation 95 % % 06/29/2023 9:45 EST Oxygen Saturation 95 % % 06/29/2023 9:44 EST Oxygen Saturation 95 % % 06/29/2023 9:43 EST Oxygen Saturation 95 % % 06/29/2023 9:42 EST Oxygen Saturation 90 % % 06/29/2023 9:40 EST Oxygen Saturation 89 % % 06/29/2023 9:35 EST Oxygen Saturation 92 % % 06/29/2023 9:30 EST Oxygen Saturation 92 % % 06/29/2023 9:25 EST Oxygen Saturation 91 % % 06/29/2023 9:20 EST Oxygen Saturation 90 % % 06/29/2023 9:15 EST Oxygen Saturation 89 % % 06/29/2023 9:14 EST Oxygen Saturation 90 % % 06/29/2023 9:10 EST Oxygen Saturation 90 % % 06/29/2023 9:07 EST Oxygen Saturation 90 % % 06/29/2023 9:06 EST Oxygen Saturation 90 % % 06/29/2023 9:05 EST Oxygen Saturation 90 % % (Modified) 06/29/2023 9:04 EST Oxygen Saturation 90 % % 06/29/2023 9:03 EST Oxygen Saturation 90 % % 06/29/2023 9:02 EST Oxygen Saturation 90 % % 06/29/2023 9:01 EST Oxygen Saturation 90 % % 06/29/2023 9:00 EST Oxygen Saturation 90 % % (Modified) 06/29/2023 8:59 EST Oxygen Saturation 90 % % 06/29/2023 8:57 EST Oxygen Saturation 90 % % 06/29/2023 8:55 EST Oxygen Saturation 90 % % 06/29/2023 8:50 EST Oxygen Saturation 90 % % (Modified) 06/29/2023 8:49 EST Oxygen Saturation 90 % % 06/29/2023 8:48 EST Oxygen Saturation 90 % % 06/29/2023 8:45 EST Oxygen Saturation 90 % % 06/29/2023 8:40 EST Oxygen Saturation 87 % % 06/29/2023 8:38 EST Oxygen Saturation 82 % % 06/29/2023 8:35 EST Oxygen Saturation 87 % % 06/29/2023 8:30 EST Oxygen Saturation 85 % % 06/29/2023 8:25 EST Oxygen Saturation 83 % % 06/29/2023 8:20 EST Oxygen Saturation 74 % % (Modified) 06/29/2023 8:19 EST Oxygen Saturation 85 % % 06/29/2023 8:15 EST Oxygen Saturation 97 % % 06/29/2023 8:14 EST Oxygen Saturation 97 % % 06/29/2023 8:12 EST Oxygen Saturation 95 % % 06/29/2023 8:11 EST Oxygen Saturation 95 % % 06/29/2023 8:10 EST Oxygen Saturation 95 % % (Modified) 06/29/2023 8:09 EST Oxygen Saturation 95 % % 06/29/2023 6:54 EST Oxygen Saturation 96 % 06/29/2023 6:37 EST Oxygen Therapy Nasal cannula 0L-6L Oxygen Saturation 97 % Oxygen Activity Oxygen On Oxygen Flow Rate 4 06/29/2023 3:30 EST Oxygen Therapy Nasal cannula 0L-6L Oxygen Saturation 94 % Oxygen Flow Rate 4 06/28/2023 22:42 EST Oxygen Therapy Nasal cannula 0L-6L Oxygen Saturation 95 % Oxygen Flow Rate 4 06/28/2023 20:37 EST Oxygen Therapy Nasal cannula 0L-6L Oxygen Saturation 97 % Oxygen Flow Rate 4 06/28/2023 20:00 EST Oxygen Therapy Nasal cannula 0L-6L Oxygen Saturation 96 % Oxygen Flow Rate 4 06/28/2023 19:12 EST Oxygen Saturation 95 % 06/28/2023 17:54 EST Oxygen Therapy Nasal cannula 0L-6L Oxygen Saturation 96 % Oxygen Flow Rate 4 06/28/2023 16:33 EST Oxygen Therapy Nasal cannula 0L-6L Oxygen Saturation 96 % Oxygen Flow Rate 4 06/28/2023 15:40 EST Oxygen Therapy Nasal cannula 0L-6L Oxygen Saturation 96 % Oxygen Flow Rate 4 06/28/2023 12:35 EST Oxygen Therapy Nasal cannula 0L-6L Oxygen Flow Rate 4 06/28/2023 10:19 EST Oxygen Therapy Nasal cannula 0L-6L Oxygen Saturation 94 % Oxygen Flow Rate 4 06/28/2023 7:27 EST Oxygen Therapy Nasal cannula 0L-6L Oxygen Flow Rate 4 06/28/2023 7:00 EST Oxygen Saturation 94 % 06/28/2023 6:36 EST Oxygen Therapy Nasal cannula 0L-6L Oxygen Saturation 98 % Oxygen Flow Rate 4 06/28/2023 3:31 EST Oxygen Therapy Nasal cannula 0L-6L Oxygen Saturation 93 % Oxygen Flow Rate 4 . Mental status: at preoperative baseline. Respiratory function: respirations are non-labored, Stable. Respiratory support: none. CV function: Stable. Cardiovascular support: none. Pain: Satisfactory. Nausea status: Satisfactory. Postoperative hydration status: within normal limits. Notes: Patient is sufficiently recovered from anesthesia to participate in the evaluation. No follow-up care needed. No complications post-anesthesia.. Digitally Signed by LAUREN DE SOUZA MD on 06/29/2023 10:[address] [facility] Evaluation + Plan note Future Appointments Appointment Date:09/28/2023 10:00:00 AM Scheduled Provider: Location:[facility] Appointment Type:CV Office Procedure ICD Appointment Date:12/30/2023 01:15:00 PM Scheduled Provider: Location:[facility] Appointment Type:CV Remote Procedure [facility] [place] [facility] course Narrative No data available for this section [facility] Hospital Discharge instructions No data available for this section [facility] Patient's home Plan of care note* Visit Details Visit Type -SN SOC Discipline -Half-Way Problems Problem Description Start Date Status Goals Interve ntions Medication Education Disciplines: Skilled Services 08/20/2022 Active 1 goal linked to scheduled/documen pawan intervention 1 goal intervention scheduled/document ed in this visit Mental Health Disciplines: Skilled Services 08/20/2022 Active 1 goal linked to scheduled/documen pawan intervention 1 goal intervention scheduled/document ed in this visit Sepsis Disciplines: Skilled Services 08/20/2022 Active 1 goal linked to scheduled/documen pawan intervention 1 goal intervention scheduled/document ed in this visit Declined Referral Disciplines: Skilled Services 08/20/2022 Active 1 goal linked to scheduled/documen pawan intervention 1 goal intervention scheduled/document ed in this visit Risk for skin breakdown Disciplines: Skilled Services 08/20/2022 Active 1 goal linked to scheduled/documen pawan intervention 1 goal intervention scheduled/document ed in this visit Physician Specific Parameters Disciplines: Skilled Services 08/20/2022 Active 1 goal linked to scheduled/documen pawan intervention 1 goal intervention scheduled/document ed in this visit Risk for Falls Disciplines: Skilled Services 08/20/2022 Active 1 goal linked to scheduled/documen pawan intervention 1 goal intervention scheduled/document ed in this visit Pain Disciplines: Skilled Services 08/20/2022 Active 1 goal linked to scheduled/documen pawan intervention 1 goal intervention scheduled/document ed in this visit Diabetic Foot Care Disciplines: Skilled Services 08/20/2022 Active 1 goal linked to scheduled/documen pawan intervention 1 goal intervention scheduled/document ed in this visit Oxygen Disciplines: Skilled Services 08/20/2022 Active 1 goal linked to scheduled/documen pawan intervention 1 goal intervention scheduled/document ed in this visit Nutrition/Hydration Disciplines: Skilled Services 08/20/2022 Active 1 goal linked to scheduled/documen pawan intervention 1 goal intervention scheduled/document ed in this visit High Risk Medications Disciplines: Skilled Services 08/20/2022 Active 1 goal linked to scheduled/documen pawan intervention 4 goal interventions scheduled/document ed in this visit Advance Directives Disciplines: Skilled Services 08/20/2022 Active 1 goal linked to scheduled/documen pawan intervention 1 goal intervention scheduled/document ed in this visit SN Edema Disciplines: SN 08/21/2022 Active 1 goal linked to scheduled/documen pawan intervention 1 goal intervention scheduled/document ed in this visit SN Integumentary/Wound s Disciplines: SN 08/21/2022 Active 1 goal linked to scheduled/documen pawan intervention 3 goal interventions scheduled/document ed in this visit SN Diabetes Disciplines: SN 08/21/2022 Active 1 goal linked to scheduled/documen pawan intervention 1 goal intervention scheduled/document ed in this visit SN Cardiovascular Condition Disciplines: SN 08/21/2022 Active 1 goal linked to scheduled/documen pawan intervention 1 goal intervention scheduled/document ed in this visit SN Learning Assessment Disciplines: SN 08/21/2022 Active 1 goal linked to scheduled/documen pawan intervention 1 goal intervention scheduled/document ed in this visit Goals Goal Associated Problem Outcome Goal Met? Visit Notes Patient/caregiver will demonstrate ability to obtain, store, identify and administer ordered medications, keep accurate medication list in home, and adhere to medication schedule Description: Patient/caregiver will demonstrate ability to obtain, store, identify and administer ordered medications, keep accurate medication list in home, and adhere to medication schedule by 10/18/22. Medication Education No Improved management of mental health condition(s) Description: Patient/caregiver will teach back mental health symptom identification and management techniques by 10/18/22. Mental Health No Patient/caregiver will be able to identify and report symptoms of sepsis Description: Patient/caregiver will be able to identify signs/symptoms of sepsis infection and will verbalize actions to take if suspected by 10/18/22. Sepsis No Patient has declined referred services Declined Referral No Manage risk for skin breakdown Description: Patient/caregiver will verbalize and demonstrate understanding of the risks and measures to be taken to monitor and prevent skin breakdown by 10/18/22. Risk for skin breakdown No Patient to maintain parameters within physician-specified ranges throughout certification period Physician Specific Parameters No Manage Risk for falls Description: Patient/caregiver will verbalize knowledge of individualized fall prevention strategies by 10/18/22. Risk for Falls No Manage Pain Description: Patient/caregiver will verbalize knowledge and understanding of appropriate techniques to control pain, including pain medication and non-pharmacological techniques. Patient will verbalize or demonstrate an acceptable level of pain as evidenced by a pain score of 0-3/10 and improvement in ability to perform activities of daily living to be achieved by 10/18/22. Pain No Manage diabetic foot care Description: Patient/caregiver will demonstrate basic understanding of and compliance with diabetic self-care management as evidenced by verbalizing purpose of daily foot care and assessment by 10/18/22. Diabetic Foot Care No Manage oxygen Description: Patient/caregiver will use oxygen safely and effectively in home by verbalizing and demonstrating oxygen safety by 10/18/22. Oxygen No Manage Nutrition/Hydration Description: Patient/caregiver will verbalize/demonstrate knowledge of prescribed diet and/or healthy nutrition to be achieved by 10/18/22. Nutrition/Hydration No Patient/caregiver will teach back high risk medication side effect and precaution education High Risk Medications No Patient/caregiver will make healthcare providers aware of and any changes to Advance Directives throughout certification period Advance Directives No Patient will have improved edema management Description: Patient/caregiver will demonstrate an understanding of edema management strategies as evidenced by resolution or stabilization of edema by 09/20/22. SN Edema No Patient/Caregiver will have improved healing and be free of signs and symptoms of complications Description: Patient/caregiver will verbalize management strategies to promote wound healing & prevent complications as evidenced by improved healing & no complications by 10/18/22. SN Integumentary/Wounds No Improved management of diabetes Description: Improve diabetic management as evidenced by patient/caregiver able to teach back diabetic management strategies by 10/18/22. SN Diabetes No Improved management of cardiovascular disease Description: Improve patient/caregiver management of cardiac disease as evidenced by patient/caregiver ability to teach back cardiac management strategies by 09/20/22. SN Cardiovascular Condition No Demonstrate understanding of education Description: Patient and/or caregiver will verbalize understanding of educational instruction provided throughout certification period. SN Learning Assessment No Interventions Intervention Associated Problem/Goal Status Variance Visit Notes Medication Education Description: Evaluate/instruct patient/caregiver on obtaining, storing, identifying and administering ordered medications as well as keeping accurate medication list in the home and adhereing to medication schedule Problem:Medication Education Goal:Patient/caregive r will demonstrate ability to obtain, store, identify and administer ordered medications, keep accurate medication list in home, and adhere to medication schedule Completed Patient instructed on importance of keeping accurate medication list in home, adhering to medication schedule and proper storage of medications. Instruct on depression symptoms and management Description: PHQ-2 score: below 3 PHQ-9 Score: none Problem:Mental Health Goal:Improved management of mental health condition(s) Completed Patient instructed on the following: signs of depression and when to report symptoms to physician, importance of medication adherence and record symptoms to assist with ongoing monitoring. Risk of Sepsis Description: Patient is at risk for sepsis. Monitor closely for s/s of sepsis. 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 A John score <= to 18 indicates risk for skin breakdown. Problem:Risk for skin breakdown Goal:Manage risk for skin breakdown Completed patient instructed on maintaining skin integrity including: The need for every 1-2 hour turns, position changes, and maintaining activity as tolerated, Reducing risk of friction and shear, including use of draw sheet as appropriate and Notifying [facility] clinician of changes to skin integrity Evaluation for pressure reduction surfaces completed for chair. SPO2 Description: Notify if pulse ox is <92% at rest. Problem:Physician Specific Parameters Goal:Patient to maintain parameters within physician-specified ranges throughout certification period Completed Instruct on individual fall risk factors and strategies to prevent falls and injuries caused by falls. Problem:Risk for Falls Goal:Manage Risk for falls Completed SN: Patient instructed on Eliminating Environmental Hazards: Keep pathways clear, Keep pets out of pathways, Remove unsafe rugs, Wear supportive shoes or non-skid socks and Keep frequently used items within reach Instruct on pain and instruct on strategies to control pain Problem:Pain Goal:Manage Pain Completed patient instructed on techniques to control pain including Pharmacological measures and Non-Pharmacological measures; rest, positioning/elevation and mobility/therapeutic exercise. Monitor lower extremities for skin lesions and educate on proper foot care Problem:Diabetic Foot Care Goal:Manage diabetic foot care Completed patient instructed on diabetic foot care including daily skin inspection, wearing proper footwear/avoiding going barefoot and wash/dry feet thoroughly. Instruct on fire safety and safe and effective use of oxygen in the home Problem:Oxygen Goal:Manage oxygen Completed patient and caregiver instructed on: findings of safety risk assessment, causes of fires, firerisks for neighboring residences and buildings, precautions that can prevent fire-related injuries, oxygen safety as outlined in Home Care Patient Handbook and recommendations for specific safety risks identified in the home: maintenance of working smoke detectors and changing batteries, establishment of fire escape plan, telephone accessibility, removal of and precautions with potential fuel and ignition sources: candles, safe food preparation practices while using oxygen, discontinue use of aerosol sprays and items containing oil, grease, or petroleum near oxygen, removal of burning candles and smoking materials, implementation of no-smoking policy in home, including e-cigarettes and posting of No-Smoking signs on entrance doors, proper storage of oxygen cylinders in a stand or on their side away from heat and sunlight, proper clearance of 6 inches or more around oxygen concentrator;, proper placement of oxygen concentrator in home at least 10 feet from open flames or ignition sources, proper cleaning of oxygen filter per business unit controller's guidelines, safe use of space heaters in the home and smoking cessation program patient and caregiver demonstrate compliance with safety recommendations. Define patient s appetite/hydration status and implement strategies to improve compliance with prescribed diet and/or healthy nutrition. Problem:Nutrition/Hyd ration Goal:Manage Nutrition/Hydration Completed instructed patient on implementing strategies to comply with prescribed diet, healthy nutrition and adequate hydration Opioids- educated on high risk medication Problem:High Risk Medications Goal:Patient/caregive r will teach back high risk medication side effect and precaution education Completed patient educated on taking medication(s) as prescribed by provider. Do not stop medication or alter doses without speaking with your provider. Discuss medication effectiveness or side effect concerns with your provider and home care team. Only take opioids as prescribed, do not share your medications, and take proper precautions in storing and properly disposing of opioids once no longer needed. Possible side effects of opioid medication including sedation, decreased rate of breathing, and constipation. Report over sedation to prescribing provider and practice deep breathing techniques every hour while awake. Prevent constipation by increasing water and fiber intake, increasing activity as tolerated, and use stool softener(s) as prescribed. Hypoglycemic (including insulin)- educated on high risk medication Problem:High Risk Medications Goal:Patient/caregive r will teach back high risk medication side effect and precaution education Completed patient educated on taking medication(s) as prescribed by provider. Do not stop medication or skip/alter doses without speaking with your provider. Discuss medication effectiveness or side effect concerns with your provider and home care team. Check blood sugars and keep log as ordered by provider. Monitor for side effects of hypoglycemia such as increased weakness or shaking, moist skin, sweating, fast heartbeat, dizziness, sudden hunger, confusion, pale skin, numbness in mouth or tongue, irritability, nervousness, unsteadiness, nightmares, bad dreams, and restless sleep. Checking your blood sugar routinely and eating a consistent diabetic diet can help regulate blood sugars and reduce side effects. Antiplatelet- educated on high risk medication Problem:High Risk Medications Goal:Patient/caregive r will teach back high risk medication side effect and precaution education Completed patient educated on taking medication(s) as prescribed by provider. Do not stop medication or alter doses without speaking with your provider. Discuss medication effectiveness or side effect concerns with your provider and home care team. Discuss all medications you are taking, even [id number] medicines, with your provider and pharmacist since many drugs can interact with antiplatelet medications. If you forget to take a dose, DO NOT take a double dose. Take the missed dose as soon as possible on the same day. DO NOT take a double dose the next day to make up for the missed dose. Watch for signs of abnormal or excessive bleeding and bruising (refer to Bleeding Precautions education). Call your health care provider right away if you suspect something is wrong. Antibiotic- educated on high risk medication Problem:High Risk Medications Goal:Patient/caregive r will teach back high risk medication side effect and precaution education Completed patient educated on taking medication(s) as prescribed by provider. Do not stop medication or alter doses without speaking with your provider. Discuss medication effectiveness or side effect concerns with your provider and home care team. Take the full dispensed amount even if you start feeling better, as bacteria can become resistant to antibiotic treatment if you do not finish your prescription. Common side effects are upset stomach and diarrhea. Take your antibiotics with food unless otherwise indicated to help with indigestion. Taking an lsge-vuq-zpyyexl probiotic or eating yogurt with live and active cultures three times a day can help prevent antibiotic-associated diarrhea. Call your provider immediately if you develop rashes or hives as this could be a delayed allergic reaction. Seek emergency treatment if you develop severe allergic reaction symptoms such as mouth or tongue swelling. Determine patient's Advance Directive Status Description: Patient does not have advance directives. Patient/Caregiver declined Advance Directive information. Problem:Advance Directives Goal:Patient/caregive r will make healthcare providers aware of and any changes to Advance Directives throughout certification period Completed Discussed Advance Directives with Patient and/or Caregiver. Referred patient to Home Care handbook for further information on Healthcare DPOA & Living Will. Assess and instruct on measures to reduce edema Problem:SN Edema Goal:Patient will have improved edema management Completed patient instructed on elevation, diet and medication compliance. Wound Care: Perform wound care (1) Description: Wound Care Order: Wound location: perianal Wound type (etiology): abcess Order: Lightly pack perineal wound with Io doform, cover with gauze and ABD. Wash wound with soap and water or wound cleanser with each dressing change Frequency: daily Wound care to be completed by caregiver except for scheduled SN wound care visits. Measure wound/incision at least weekly. Okay to substitute comparable products from home care formulary. Problem:SN Integumentary/Wounds Goal:Patient/Caregive r will have improved healing and be free of signs and symptoms of complications Completed Completed by SN. Patient did tolerate well. Instruct patient/caregiver healing process and management measures to promote healing and avoid complications Problem:SN Integumentary/Wounds Goal:Patient/Caregive r will have improved healing and be free of signs and symptoms of complications Completed patient instructed on the following: healing process, signs and symptoms of infection and importance of good nutrition. Instruct Patient/Caregiver on wound/incision care procedure as ordered by physician Problem:SN Integumentary/Wounds Goal:Patient/Caregive r will have improved healing and be free of signs and symptoms of complications Completed patient instructed on wound care as ordered by Physician. Instruct on diabetes disease process and management of chronic condition Description: Patient has needs for education of diabetes. Problem:SN Diabetes Goal:Improved management of diabetes Completed patient assessed and instructed on diabetes disease process, diet education and recogonizing s/s of hypoglycemia and hyperglycemia as found in the diabetes self-care booklets. Instruct on cardiovascular disease process and management of condition Description: Patient has following cardiac diagnosis(es): CAD. Problem:SN Cardiovascular Condition Goal:Improved management of cardiovascular disease Completed patient instructed on cardiac disease process and self monitoring & symptom reporting. Instruct and educate on knowledge deficits Problem:SN Learning Assessment Goal:Demonstrate understanding of education Completed patient verbalize and/or demonstrate understanding of nursing education completed today. Education methods include: teach back. Further education required to improve knowledge and compliance with cardiac disease management, diabetic care management, fall prevention/home safety strategies, incision/wound care management, infection control precautions, medication management, nutrition, oxygen safety and pain management. documented in this encounter [facility]'s home Plan of care note* Visit Details Visit Type -SN ROUTINE Discipline -Half-Way Problems Problem Description Start Date Status Goals Interve ntions Medication Education Disciplines: Skilled Services 08/20/2022 Active 1 goal linked to scheduled/documen pawan intervention 1 goal intervention scheduled/document ed in this visit Mental Health Disciplines: Skilled Services 08/20/2022 Active 1 goal linked to scheduled/documen pawan intervention 1 goal intervention scheduled/document ed in this visit Sepsis Disciplines: Skilled Services 08/20/2022 Active 1 goal linked to scheduled/documen pawan intervention 1 goal intervention scheduled/document ed in this visit Risk for skin breakdown Disciplines: Skilled Services 08/20/2022 Active 1 goal linked to scheduled/documen pawan intervention 1 goal intervention scheduled/document ed in this visit Physician Specific Parameters Disciplines: Skilled Services 08/20/2022 Active 1 goal linked to scheduled/documen pawan intervention 1 goal intervention scheduled/document ed in this visit Risk for Falls Disciplines: Skilled Services 08/20/2022 Active 1 goal linked to scheduled/documen pawan intervention 1 goal intervention scheduled/document ed in this visit Pain Disciplines: Skilled Services 08/20/2022 Active 1 goal linked to scheduled/documen pawan intervention 1 goal intervention scheduled/document ed in this visit Diabetic Foot Care Disciplines: Skilled Services 08/20/2022 Active 1 goal linked to scheduled/documen pawan intervention 1 goal intervention scheduled/document ed in this visit Oxygen Disciplines: Skilled Services 08/20/2022 Active 1 goal linked to scheduled/documen pawan intervention 1 goal intervention scheduled/document ed in this visit Nutrition/Hydration Disciplines: Skilled Services 08/20/2022 Active 1 goal linked to scheduled/documen pawan intervention 1 goal intervention scheduled/document ed in this visit High Risk Medications Disciplines: Skilled Services 08/20/2022 Active 1 goal linked to scheduled/documen pawan intervention 3 goal interventions scheduled/document ed in this visit SN Edema Disciplines: SN 08/21/2022 Active 1 goal linked to scheduled/documen pawan intervention 1 goal intervention scheduled/document ed in this visit SN Integumentary/Wound s Disciplines: SN 08/21/2022 Active 1 goal linked to scheduled/documen pawan intervention 3 goal interventions scheduled/document ed in this visit SN Diabetes Disciplines: SN 08/21/2022 Active 1 goal linked to scheduled/documen pawan intervention 1 goal intervention scheduled/document ed in this visit SN Cardiovascular Condition Disciplines: SN 08/21/2022 Active 1 goal linked to scheduled/documen pawan intervention 1 goal intervention scheduled/document ed in this visit SN Learning Assessment Disciplines: SN 08/21/2022 Active 1 goal linked to scheduled/documen pawan intervention 1 goal intervention scheduled/document ed in this visit Goals Goal Associated Problem Outcome Goal Met? Visit Notes Patient/caregiver will demonstrate ability to obtain, store, identify and administer ordered medications, keep accurate medication list in home, and adhere to medication schedule Description: Patient/caregiver will demonstrate ability to obtain, store, identify and administer ordered medications, keep accurate medication list in home, and adhere to medication schedule by 10/18/22. Medication Education No Improved management of mental health condition(s) Description: Patient/caregiver will teach back mental health symptom identification and management techniques by 10/18/22. Mental Health No Patient/caregiver will be able to identify and report symptoms of sepsis Description: Patient/caregiver will be able to identify signs/symptoms of sepsis infection and will verbalize actions to take if suspected by 10/18/22. Sepsis No Manage risk for skin breakdown Description: Patient/caregiver will verbalize and demonstrate understanding of the risks and measures to be taken to monitor and prevent skin breakdown by 10/18/22. Risk for skin breakdown No Patient to maintain parameters within physician-specified ranges throughout certification period Physician Specific Parameters No Manage Risk for falls Description: Patient/caregiver will verbalize knowledge of individualized fall prevention strategies by 10/18/22. Risk for Falls No Manage Pain Description: Patient/caregiver will verbalize knowledge and understanding of appropriate techniques to control pain, including pain medication and non-pharmacological techniques. Patient will verbalize or demonstrate an acceptable level of pain as evidenced by a pain score of 0-3/10 and improvement in ability to perform activities of daily living to be achieved by 10/18/22. Pain No Manage diabetic foot care Description: Patient/caregiver will demonstrate basic understanding of and compliance with diabetic self-care management as evidenced by verbalizing purpose of daily foot care and assessment by 10/18/22. Diabetic Foot Care No Manage oxygen Description: Patient/caregiver will use oxygen safely and effectively in home by verbalizing and demonstrating oxygen safety by 10/18/22. Oxygen No Manage Nutrition/Hydration Description: Patient/caregiver will verbalize/demonstrate knowledge of prescribed diet and/or healthy nutrition to be achieved by 10/18/22. Nutrition/Hydration No Patient/caregiver will teach back high risk medication side effect and precaution education High Risk Medications No Patient will have improved edema management Description: Patient/caregiver will demonstrate an understanding of edema management strategies as evidenced by resolution or stabilization of edema by 09/20/22. SN Edema No Patient/Caregiver will have improved healing and be free of signs and symptoms of complications Description: Patient/caregiver will verbalize management strategies to promote wound healing & prevent complications as evidenced by improved healing & no complications by 10/18/22. SN Integumentary/Wounds No Improved management of diabetes Description: Improve diabetic management as evidenced by patient/caregiver able to teach back diabetic management strategies by 10/18/22. SN Diabetes No Improved management of cardiovascular disease Description: Improve patient/caregiver management of cardiac disease as evidenced by patient/caregiver ability to teach back cardiac management strategies by 09/20/22. SN Cardiovascular Condition No Demonstrate understanding of education Description: Patient and/or caregiver will verbalize understanding of educational instruction provided throughout certification period. SN Learning Assessment No Interventions Intervention Associated Problem/Goal Status Variance Visit Notes Medication Education Description: Evaluate/instruct patient/caregiver on obtaining, storing, identifying and administering ordered medications as well as keeping accurate medication list in the home and adhereing to medication schedule Problem:Medication Education Goal:Patient/caregive r will demonstrate ability to obtain, store, identify and administer ordered medications, keep accurate medication list in home, and adhere to medication schedule Completed Patient instructed on adhering to medication schedule. Instruct on depression symptoms and management Description: PHQ-2 score: below 3 PHQ-9 Score: none Problem:Mental Health Goal:Improved management of mental health condition(s) Completed Patient instructed on the following: coping skills & techniques. Risk of Sepsis Description: Patient is at risk for sepsis. Monitor closely for s/s of sepsis. Problem:Sepsis Goal:Patient/caregive r will be able to identify and report symptoms of sepsis Completed Instruct on the risks and measures to be taken to prevent skin breakdown Description: Patient's John Score is: at risk. A John score <= to 18 indicates risk for skin breakdown. Problem:Risk for skin breakdown Goal:Manage risk for skin breakdown Completed patient instructed on maintaining skin integrity including: The need for every 1-2 hour turns, position changes, and maintaining activity as tolerated and Routine skin care SPO2 Description: Notify if pulse ox is <92% at rest. Problem:Physician Specific Parameters Goal:Patient to maintain parameters within physician-specified ranges throughout certification period Completed Instruct on individual fall risk factors and strategies to prevent falls and injuries caused by falls. Problem:Risk for Falls Goal:Manage Risk for falls Completed SN: Patient instructed on Eliminating Environmental Hazards: Keep pathways clear Managing Impaired Functional Mobility: Use assistive device(s): single point cane Instruct on pain and instruct on strategies to control pain Problem:Pain Goal:Manage Pain Completed patient instructed on techniques to control pain including Non-Pharmacological measures; positioning/elevation. Monitor lower extremities for skin lesions and educate on proper foot care Problem:Diabetic Foot Care Goal:Manage diabetic foot care Completed patient instructed on diabetic foot care including daily skin inspection and wearing proper footwear/avoiding going barefoot. Instruct on fire safety and safe and effective use of oxygen in the home Problem:Oxygen Goal:Manage oxygen Completed patient instructed on: findings of safety risk assessment, causes of fires, firerisks for neighboring residences and buildings, precautions that can prevent fire-related injuries and recommendations for specific safety risks identified in the home: maintenance of working smoke detectors and changing batteries patient demonstrate compliance with safety recommendations. Define patient s appetite/hydration status and implement strategies to improve compliance with prescribed diet and/or healthy nutrition. Problem:Nutrition/Hyd ration Goal:Manage Nutrition/Hydration Completed reinforced patient and caregiver on implementing strategies to comply with prescribed diet, healthy nutrition and adequate hydration Hypoglycemic (including insulin)- educated on high risk medication Problem:High Risk Medications Goal:Patient/caregive r will teach back high risk medication side effect and precaution education Completed patient and caregiver educated on taking medication(s) as prescribed by provider. Do not stop medication or skip/alter doses without speaking with your provider. Discuss medication effectiveness or side effect concerns with your provider and home care team. Check blood sugars and keep log as ordered by provider. Monitor for side effects of hypoglycemia such as increased weakness or shaking, moist skin, sweating, fast heartbeat, dizziness, sudden hunger, confusion, pale skin, numbness in mouth or tongue, irritability, nervousness, unsteadiness, nightmares, bad dreams, and restless sleep. Checking your blood sugar routinely and eating a consistent diabetic diet can help regulate blood sugars and reduce side effects. Antiplatelet- educated on high risk medication Problem:High Risk Medications Goal:Patient/caregive r will teach back high risk medication side effect and precaution education Completed patient educated on taking medication(s) as prescribed by provider. Do not stop medication or alter doses without speaking with your provider. Discuss medication effectiveness or side effect concerns with your provider and home care team. Discuss all medications you are taking, even [id number] medicines, with your provider and pharmacist since many drugs can interact with antiplatelet medications. If you forget to take a dose, DO NOT take a double dose. Take the missed dose as soon as possible on the same day. DO NOT take a double dose the next day to make up for the missed dose. Watch for signs of abnormal or excessive bleeding and bruising (refer to Bleeding Precautions education). Call your health care provider right away if you suspect something is wrong. Antibiotic- educated on high risk medication Problem:High Risk Medications Goal:Patient/caregive r will teach back high risk medication side effect and precaution education Completed patient educated on taking medication(s) as prescribed by provider. Do not stop medication or alter doses without speaking with your provider. Discuss medication effectiveness or side effect concerns with your provider and home care team. Take the full dispensed amount even if you start feeling better, as bacteria can become resistant to antibiotic treatment if you do not finish your prescription. Common side effects are upset stomach and diarrhea. Take your antibiotics with food unless otherwise indicated to help with indigestion. Taking an gsch-lxg-qocxvzl probiotic or eating yogurt with live and active cultures three times a day can help prevent antibiotic-associated diarrhea. Call your provider immediately if you develop rashes or hives as this could be a delayed allergic reaction. Seek emergency treatment if you develop severe allergic reaction symptoms such as mouth or tongue swelling. Assess and instruct on measures to reduce edema Problem:SN Edema Goal:Patient will have improved edema management Completed patient instructed on elevation and compression. Wound Care: Perform wound care (1) Description: Wound Care Order: Wound location: perianal Wound type (etiology): abcess Order: Lightly pack perineal wound with Io doform, cover with gauze and ABD. Wash wound with soap and water or wound cleanser with each dressing change Frequency: daily Wound care to be completed by caregiver except for scheduled SN wound care visits. Measure wound/incision at least weekly. Okay to substitute comparable products from home care formulary. Problem:SN Integumentary/Wounds Goal:Patient/Caregive r will have improved healing and be free of signs and symptoms of complications Completed Completed by SN. Patient did tolerate well. Instruct patient/caregiver healing process and management measures to promote healing and avoid complications Problem:SN Integumentary/Wounds Goal:Patient/Caregive r will have improved healing and be free of signs and symptoms of complications Completed patient instructed on the following: healing process, signs and symptoms of infection, importance of good nutrition, smoking cessation and when to report symptoms. Instruct Patient/Caregiver on wound/incision care procedure as ordered by physician Problem:SN Integumentary/Wounds Goal:Patient/Caregive r will have improved healing and be free of signs and symptoms of complications Completed patient and caregiver instructed on wound care as ordered by Physician. Instruct on diabetes disease process and management of chronic condition Description: Patient has needs for education of diabetes. Problem:SN Diabetes Goal:Improved management of diabetes Completed patient assessed and reinforced on diabetes disease process as found in the diabetes self-care booklets. Instruct on cardiovascular disease process and management of condition Description: Patient has following cardiac diagnosis(es): CAD. Problem:SN Cardiovascular Condition Goal:Improved management of cardiovascular disease Completed patient instructed on self monitoring & symptom reporting. Instruct and educate on knowledge deficits Problem:SN Learning Assessment Goal:Demonstrate understanding of education Completed patient and caregiver verbalize and/or demonstrate understanding of nursing education completed today. Education methods include: verbal cues and visual cues. Further education required to improve knowledge and compliance with cardiac disease management, diabetic care management, fall prevention/home safety strategies, gastrointestinal care management, incision/wound care management, medication management, nutrition, oxygen safety, pain management and pulmonary disease management. documented in this encounter [facility]'s home Plan of care note* Visit Details Visit Type -SN ROUTINE Discipline -Half-Way Problems Problem Description Start Date Status Goals Interve ntions Medication Education Disciplines: Skilled Services 08/20/2022 Active 1 goal linked to scheduled/documen pawan intervention 1 goal intervention scheduled/document ed in this visit Mental Health Disciplines: Skilled Services 08/20/2022 Active 1 goal linked to scheduled/documen pawan intervention 1 goal intervention scheduled/document ed in this visit Sepsis Disciplines: Skilled Services 08/20/2022 Active 1 goal linked to scheduled/documen pawan intervention 1 goal intervention scheduled/document ed in this visit Declined Referral Disciplines: Skilled Services 08/20/2022 Active 1 goal linked to scheduled/documen pawan intervention 1 goal intervention scheduled/document ed in this visit Risk for skin breakdown Disciplines: Skilled Services 08/20/2022 Active 1 goal linked to scheduled/documen pawan intervention 1 goal intervention scheduled/document ed in this visit Physician Specific Parameters Disciplines: Skilled Services 08/20/2022 Active 1 goal linked to scheduled/documen pawan intervention 1 goal intervention scheduled/document ed in this visit Risk for Falls Disciplines: Skilled Services 08/20/2022 Active 1 goal linked to scheduled/documen pawan intervention 1 goal intervention scheduled/document ed in this visit Pain Disciplines: Skilled Services 08/20/2022 Active 1 goal linked to scheduled/documen pawan intervention 1 goal intervention scheduled/document ed in this visit Diabetic Foot Care Disciplines: Skilled Services 08/20/2022 Active 1 goal linked to scheduled/documen pawan intervention 1 goal intervention scheduled/document ed in this visit Oxygen Disciplines: Skilled Services 08/20/2022 Active 1 goal linked to scheduled/documen apwan intervention 1 goal intervention scheduled/document ed in this visit Nutrition/Hydration Disciplines: Skilled Services 08/20/2022 Active 1 goal linked to scheduled/documen pawan intervention 1 goal intervention scheduled/document ed in this visit High Risk Medications Disciplines: Skilled Services 08/20/2022 Active 1 goal linked to scheduled/documen pawan intervention 4 goal interventions scheduled/document ed in this visit Discharge Disciplines: Skilled Services 08/20/2022 Active 1 goal linked to scheduled/documen pawan intervention 1 goal intervention scheduled/document ed in this visit Advance Directives Disciplines: Skilled Services 08/20/2022 Active 1 goal linked to scheduled/documen pawan intervention 1 goal intervention scheduled/document ed in this visit SN Edema Disciplines: SN 08/21/2022 Active 1 goal linked to scheduled/documen pawan intervention 1 goal intervention scheduled/document ed in this visit SN Integumentary/Wound s Disciplines: SN 08/21/2022 Active 1 goal linked to scheduled/documen pawan intervention 3 goal interventions scheduled/document ed in this visit SN Diabetes Disciplines: SN 08/21/2022 Active 1 goal linked to scheduled/documen pawan intervention 1 goal intervention scheduled/document ed in this visit SN Cardiovascular Condition Disciplines: SN 08/21/2022 Active 1 goal linked to scheduled/documen pawan intervention 1 goal intervention scheduled/document ed in this visit SN Learning Assessment Disciplines: 08/21/2022 Active 1 goal linked to scheduled/documen pawan intervention 1 goal intervention scheduled/document ed in this visit Goals Goal Associated Problem Outcome Goal Met? Visit Notes Patient/caregiver will demonstrate ability to obtain, store, identify and administer ordered medications, keep accurate medication list in home, and adhere to medication schedule Description: Patient/caregiver will demonstrate ability to obtain, store, identify and administer ordered medications, keep accurate medication list in home, and adhere to medication schedule by 10/18/22. Medication Education No Improved management of mental health condition(s) Description: Patient/caregiver will teach back mental health symptom identification and management techniques by 10/18/22. Mental Health No Patient/caregiver will be able to identify and report symptoms of sepsis Description: Patient/caregiver will be able to identify signs/symptoms of sepsis infection and will verbalize actions to take if suspected by 10/18/22. Sepsis No Patient has declined referred services Declined Referral No Manage risk for skin breakdown Description: Patient/caregiver will verbalize and demonstrate understanding of the risks and measures to be taken to monitor and prevent skin breakdown by 10/18/22. Risk for skin breakdown No Patient to maintain parameters within physician-specified ranges throughout certification period Physician Specific Parameters No Manage Risk for falls Description: Patient/caregiver will verbalize knowledge of individualized fall prevention strategies by 10/18/22. Risk for Falls No Manage Pain Description: Patient/caregiver will verbalize knowledge and understanding of appropriate techniques to control pain, including pain medication and non-pharmacological techniques. Patient will verbalize or demonstrate an acceptable level of pain as evidenced by a pain score of 0-3/10 and improvement in ability to perform activities of daily living to be achieved by 10/18/22. Pain No Manage diabetic foot care Description: Patient/caregiver will demonstrate basic understanding of and compliance with diabetic self-care management as evidenced by verbalizing purpose of daily foot care and assessment by 10/18/22. Diabetic Foot Care No Manage oxygen Description: Patient/caregiver will use oxygen safely and effectively in home by verbalizing and demonstrating oxygen safety by 10/18/22. Oxygen No Manage Nutrition/Hydration Description: Patient/caregiver will verbalize/demonstrate knowledge of prescribed diet and/or healthy nutrition to be achieved by 10/18/22. Nutrition/Hydration No Patient/caregiver will teach back high risk medication side effect and precaution education High Risk Medications No Manage discharge planning Description: Patient/caregiver will verbalize understanding of ongoing discharge plan provided related to disease management, arrangements for outpatient and/or community services, obtaining medications, supplies, and DME, as needed throughout certification period. Discharge No Patient/caregiver will make healthcare providers aware of and any changes to Advance Directives throughout certification period Advance Directives No Patient will have improved edema management Description: Patient/caregiver will demonstrate an understanding of edema management strategies as evidenced by resolution or stabilization of edema by 09/20/22. SN Edema No Patient/Caregiver will have improved healing and be free of signs and symptoms of complications Description: Patient/caregiver will verbalize management strategies to promote wound healing & prevent complications as evidenced by improved healing & no complications by 10/18/22. SN Integumentary/Wounds No Improved management of diabetes Description: Improve diabetic management as evidenced by patient/caregiver able to teach back diabetic management strategies by 10/18/22. SN Diabetes No Improved management of cardiovascular disease Description: Improve patient/caregiver management of cardiac disease as evidenced by patient/caregiver ability to teach back cardiac management strategies by 09/20/22. SN Cardiovascular Condition No Demonstrate understanding of education Description: Patient and/or caregiver will verbalize understanding of educational instruction provided throughout certification period. SN Learning Assessment No Interventions Intervention Associated Problem/Goal Status Variance Visit Notes Medication Education Description: Evaluate/instruct patient/caregiver on obtaining, storing, identifying and administering ordered medications as well as keeping accurate medication list in the home and adhereing to medication schedule Problem:Medication Education Goal:Patient/caregive r will demonstrate ability to obtain, store, identify and administer ordered medications, keep accurate medication list in home, and adhere to medication schedule Completed Patient instructed on importance of keeping accurate medication list in home, adhering to medication schedule and proper storage of medications. Instruct on depression symptoms and management Description: PHQ-2 score: below 3 PHQ-9 Score: none Problem:Mental Health Goal:Improved management of mental health condition(s) Completed Patient instructed on the following: signs of depression and when to report symptoms to physician, importance of medication adherence, record symptoms to assist with ongoing monitoring, coping skills & techniques, develop awareness of stressors, verbalize feelings, the importance of activity, goal planning and schedules and the benefits of adequate nutrition and hydration. Risk of Sepsis Description: Patient is at risk for sepsis. Monitor closely for s/s of sepsis. 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 A John score <= to 18 indicates risk for skin breakdown. Problem:Risk for skin breakdown Goal:Manage risk for skin breakdown Completed patient and caregiver instructed on maintaining skin integrity including: The need for every 1-2 hour turns, position changes, and maintaining activity as tolerated, Reducing risk of friction and shear, including use of draw sheet as appropriate, Elevating and protecting heels, Inspecting bony prominences, Routine skin care and Notifying [facility] clinician of changes to skin integrity Evaluation for pressure reduction surfaces completed for bed and chair . SPO2 Description: Notify if pulse ox is <92% at rest. Problem:Physician Specific Parameters Goal:Patient to maintain parameters within physician-specified ranges throughout certification period Completed Instruct on individual fall risk factors and strategies to prevent falls and injuries caused by falls. Problem:Risk for Falls Goal:Manage Risk for falls Completed SN: Patient and Caregiver instructed on Eliminating Environmental Hazards: Keep pathways clear, Keep pets out of pathways, Keep rooms and walkways well lit, Wear supportive shoes or non-skid socks and Keep frequently used items within reach Instruct on pain and instruct on strategies to control pain Problem:Pain Goal:Manage Pain Completed patient and caregiver instructed on techniques to control pain including Pharmacological measures and Non-Pharmacological measures; rest, positioning/elevation, mobility/therapeutic exercise, distraction and breathing/relaxation. Monitor lower extremities for skin lesions and educate on proper foot care Problem:Diabetic Foot Care Goal:Manage diabetic foot care Completed patient and caregiver instructed on diabetic foot care including daily skin inspection, wearing proper footwear/avoiding going barefoot, wash/dry feet thoroughly, applying moisturizer, avoiding between toes and toenail care. Instruct on fire safety and safe and effective use of oxygen in the home Problem:Oxygen Goal:Manage oxygen Completed patient and caregiver instructed on: findings of safety risk assessment, causes of fires, firerisks for neighboring residences and buildings, precautions that can prevent fire-related injuries and oxygen safety as outlined in Home Care Patient Handbook patient and caregiver demonstrate compliance with safety recommendations. Define patient s appetite/hydration status and implement strategies to improve compliance with prescribed diet and/or healthy nutrition. Problem:Nutrition/Hyd ration Goal:Manage Nutrition/Hydration Completed reinforced patient and caregiver on implementing strategies to comply with prescribed diet, healthy nutrition and adequate hydration Opioids- educated on high risk medication Problem:High Risk Medications Goal:Patient/caregive r will teach back high risk medication side effect and precaution education Completed patient educated on taking medication(s) as prescribed by provider. Do not stop medication or alter doses without speaking with your provider. Discuss medication effectiveness or side effect concerns with your provider and home care team. Only take opioids as prescribed, do not share your medications, and take proper precautions in storing and properly disposing of opioids once no longer needed. Possible side effects of opioid medication including sedation, decreased rate of breathing, and constipation. Report over sedation to prescribing provider and practice deep breathing techniques every hour while awake. Prevent constipation by increasing water and fiber intake, increasing activity as tolerated, and use stool softener(s) as prescribed. Hypoglycemic (including insulin)- educated on high risk medication Problem:High Risk Medications Goal:Patient/caregive r will teach back high risk medication side effect and precaution education Completed patient educated on taking medication(s) as prescribed by provider. Do not stop medication or skip/alter doses without speaking with your provider. Discuss medication effectiveness or side effect concerns with your provider and home care team. Check blood sugars and keep log as ordered by provider. Monitor for side effects of hypoglycemia such as increased weakness or shaking, moist skin, sweating, fast heartbeat, dizziness, sudden hunger, confusion, pale skin, numbness in mouth or tongue, irritability, nervousness, unsteadiness, nightmares, bad dreams, and restless sleep. Checking your blood sugar routinely and eating a consistent diabetic diet can help regulate blood sugars and reduce side effects. Antiplatelet- educated on high risk medication Problem:High Risk Medications Goal:Patient/caregive r will teach back high risk medication side effect and precaution education Completed patient educated on taking medication(s) as prescribed by provider. Do not stop medication or alter doses without speaking with your provider. Discuss medication effectiveness or side effect concerns with your provider and home care team. Discuss all medications you are taking, even snkj-rux-zcywedc medicines, with your provider and pharmacist since many drugs can interact with antiplatelet medications. If you forget to take a dose, DO NOT take a double dose. Take the missed dose as soon as possible on the same day. DO NOT take a double dose the next day to make up for the missed dose. Watch for signs of abnormal or excessive bleeding and bruising (refer to Bleeding Precautions education). Call your health care provider right away if you suspect something is wrong. Antibiotic- educated on high risk medication Problem:High Risk Medications Goal:Patient/caregive r will teach back high risk medication side effect and precaution education Completed patient educated on taking medication(s) as prescribed by provider. Do not stop medication or alter doses without speaking with your provider. Discuss medication effectiveness or side effect concerns with your provider and home care team. Take the full dispensed amount even if you start feeling better, as bacteria can become resistant to antibiotic treatment if you do not finish your prescription. Common side effects are upset stomach and diarrhea. Take your antibiotics with food unless otherwise indicated to help with indigestion. Taking an jrwt-luu-gjalfhw probiotic or eating yogurt with live and active cultures three times a day can help prevent antibiotic-associated diarrhea. Call your provider immediately if you develop rashes or hives as this could be a delayed allergic reaction. Seek emergency treatment if you develop severe allergic reaction symptoms such as mouth or tongue swelling. Instruct on ongoing discharge plan Problem:Discharge Goal:Manage discharge planning Completed Ongoing Discharge plan: Discharge plan discussed with patient including frequency and duration for home SN and plan for transition to: live independently at home without ongoing services. Determine patient's Advance Directive Status Description: Patient does not have advance directives. Patient/Caregiver declined Advance Directive information. Problem:Advance Directives Goal:Patient/caregive r will make healthcare providers aware of and any changes to Advance Directives throughout certification period Completed Discussed Advance Directives with Patient and/or Caregiver. Referred patient to Home Care handbook for further information on Healthcare DPOA & Living Will. Assess and instruct on measures to reduce edema Problem:SN Edema Goal:Patient will have improved edema management Completed patient instructed on elevation, ice, diet, medication compliance and benefits of activity. Wound Care: Perform wound care (1) Description: Wound Care Order: Wound location: perianal Wound type (etiology): abcess Order: Lightly pack perineal wound with Io doform, cover with gauze and ABD. Wash wound with soap and water or wound cleanser with each dressing change Frequency: daily Wound care to be completed by caregiver except for scheduled SN wound care visits. Measure wound/incision at least weekly. Okay to substitute comparable products from home care formulary. Problem:SN Integumentary/Wounds Goal:Patient/Caregive r will have improved healing and be free of signs and symptoms of complications Completed Completed by SN. Patient did tolerate well. Instruct patient/caregiver healing process and management measures to promote healing and avoid complications Problem:SN Integumentary/Wounds Goal:Patient/Caregive r will have improved healing and be free of signs and symptoms of complications Completed patient instructed on the following: healing process, signs and symptoms of infection, importance of good nutrition, importance of managing blood sugars, smoking cessation and when to report symptoms. Instruct Patient/Caregiver on wound/incision care procedure as ordered by physician Problem:SN Integumentary/Wounds Goal:Patient/Caregive r will have improved healing and be free of signs and symptoms of complications Completed patient instructed on and return demonstrated wound care as ordered by Physician. Instruct on diabetes disease process and management of chronic condition Description: Patient has needs for education of diabetes. Problem:SN Diabetes Goal:Improved management of diabetes Completed patient assessed and reinforced on diabetes disease process, diet education, how to carb count, recogonizing s/s of hypoglycemia and hyperglycemia and managing sick days as found in the diabetes self-care booklets. Instruct on cardiovascular disease process and management of condition Description: Patient has following cardiac diagnosis(es): CAD. Problem:SN Cardiovascular Condition Goal:Improved management of cardiovascular disease Completed patient instructed on cardiac disease process, self monitoring & symptom reporting and Cardiac Diet. Instruct and educate on knowledge deficits Problem:SN Learning Assessment Goal:Demonstrate understanding of education Completed patient verbalize and/or demonstrate understanding of nursing education completed today. Education methods include: verbal cues. Further education required to improve knowledge and compliance with diabetic care management, fall prevention/home safety strategies and incision/wound care management. documented in this encounter [facility]'s home Plan of care note* Visit Details Visit Type -SN ROUTINE Discipline -Half-Way Problems Problem Description Start Date Status Goals Interve ntions Medication Education Disciplines: Skilled Services 08/20/2022 Active 1 goal linked to scheduled/document ed intervention 1 goal intervention scheduled/documente d in this visit Sepsis Disciplines: Skilled Services 08/20/2022 Active 1 goal linked to scheduled/document ed intervention 1 goal intervention scheduled/documente d in this visit Risk for skin breakdown Disciplines: Skilled Services 08/20/2022 Active 1 goal linked to scheduled/document ed intervention 1 goal intervention scheduled/documente d in this visit Physician Specific Parameters Disciplines: Skilled Services 08/20/2022 Active 1 goal linked to scheduled/document ed intervention 1 goal intervention scheduled/documente d in this visit Risk for Falls Disciplines: Skilled Services 08/20/2022 Active 1 goal linked to scheduled/document ed intervention 1 goal intervention scheduled/documente d in this visit Pain Disciplines: Skilled Services 08/20/2022 Active 1 goal linked to scheduled/document ed intervention 1 goal intervention scheduled/documente d in this visit Diabetic Foot Care Disciplines: Skilled Services 08/20/2022 Active 1 goal linked to scheduled/document ed intervention 1 goal intervention scheduled/documente d in this visit Oxygen Disciplines: Skilled Services 08/20/2022 Active 1 goal linked to scheduled/document ed intervention 1 goal intervention scheduled/documente d in this visit Nutrition/Hydra tion Disciplines: Skilled Services 08/20/2022 Active 1 goal linked to scheduled/document ed intervention 1 goal intervention scheduled/documente d in this visit High Risk Medications Disciplines: Skilled Services 08/20/2022 Active 1 goal linked to scheduled/document ed intervention 4 goal interventions scheduled/documente d in this visit SN Edema Disciplines: SN 08/21/2022 Active 1 goal linked to scheduled/document ed intervention 1 goal intervention scheduled/documente d in this visit SN Integumentary/W ounds Disciplines: SN 08/21/2022 Active 1 goal linked to scheduled/document ed intervention 3 goal interventions scheduled/documente d in this visit SN Diabetes Disciplines: SN 08/21/2022 Active 1 goal linked to scheduled/document ed intervention 1 goal intervention scheduled/documente d in this visit Goals Goal Associated Problem Outcome Goal Met? Visit Notes Patient/caregiver will demonstrate ability to obtain, store, identify and administer ordered medications, keep accurate medication list in home, and adhere to medication schedule Description: Patient/caregiver will demonstrate ability to obtain, store, identify and administer ordered medications, keep accurate medication list in home, and adhere to medication schedule by 10/18/22. Medication Education No Patient/caregiver will be able to identify and report symptoms of sepsis Description: Patient/caregiver will be able to identify signs/symptoms of sepsis infection and will verbalize actions to take if suspected by 10/18/22. Sepsis No Manage risk for skin breakdown Description: Patient/caregiver will verbalize and demonstrate understanding of the risks and measures to be taken to monitor and prevent skin breakdown by 10/18/22. Risk for skin breakdown No Patient to maintain parameters within physician-specified ranges throughout certification period Physician Specific Parameters No Manage Risk for falls Description: Patient/caregiver will verbalize knowledge of individualized fall prevention strategies by 10/18/22. Risk for Falls No Manage Pain Description: Patient/caregiver will verbalize knowledge and understanding of appropriate techniques to control pain, including pain medication and non-pharmacological techniques. Patient will verbalize or demonstrate an acceptable level of pain as evidenced by a pain score of 0-3/10 and improvement in ability to perform activities of daily living to be achieved by 10/18/22. Pain No Manage diabetic foot care Description: Patient/caregiver will demonstrate basic understanding of and compliance with diabetic self-care management as evidenced by verbalizing purpose of daily foot care and assessment by 10/18/22. Diabetic Foot Care No Manage oxygen Description: Patient/caregiver will use oxygen safely and effectively in home by verbalizing and demonstrating oxygen safety by 10/18/22. Oxygen No Manage Nutrition/Hydration Description: Patient/caregiver will verbalize/demonstrate knowledge of prescribed diet and/or healthy nutrition to be achieved by 10/18/22. Nutrition/Hydration No Patient/caregiver will teach back high risk medication side effect and precaution education High Risk Medications No Patient will have improved edema management Description: Patient/caregiver will demonstrate an understanding of edema management strategies as evidenced by resolution or stabilization of edema by 09/20/22. SN Edema No Patient/Caregiver will have improved healing and be free of signs and symptoms of complications Description: Patient/caregiver will verbalize management strategies to promote wound healing & prevent complications as evidenced by improved healing & no complications by 10/18/22. SN Integumentary/Wounds No Improved management of diabetes Description: Improve diabetic management as evidenced by patient/caregiver able to teach back diabetic management strategies by 10/18/22. SN Diabetes No Interventions Intervention Associated Problem/Goal Status Variance Visit Notes Medication Education Description: Evaluate/instruct patient/caregiver on obtaining, storing, identifying and administering ordered medications as well as keeping accurate medication list in the home and adhereing to medication schedule Problem:Medication Education Goal:Patient/caregive r will demonstrate ability to obtain, store, identify and administer ordered medications, keep accurate medication list in home, and adhere to medication schedule Completed Patient and Caregiver instructed on adhering to medication schedule. Risk of Sepsis Description: Patient is at risk for sepsis. Monitor closely for s/s of sepsis. Problem:Sepsis Goal:Patient/caregive r will be able to identify and report symptoms of sepsis Completed Instruct on the risks and measures to be taken to prevent skin breakdown Description: Patient's John Score is: at risk. A John score <= to 18 indicates risk for skin breakdown. Problem:Risk for skin breakdown Goal:Manage risk for skin breakdown Completed patient instructed on maintaining skin integrity including: The need for every 1-2 hour turns, position changes, and maintaining activity as tolerated, Routine skin care and Notifying [facility] clinician of changes to skin integrity SPO2 Description: Notify DrLeon if pulse ox is <92% at rest. Problem:Physician Specific Parameters Goal:Patient to maintain parameters within physician-specified ranges throughout certification period Completed Instruct on individual fall risk factors and strategies to prevent falls and injuries caused by falls. Problem:Risk for Falls Goal:Manage Risk for falls Completed SN: Patient instructed on Eliminating Environmental Hazards: Keep pathways clear, Keep pets out of pathways, Keep rooms and walkways well lit and Wear supportive shoes or non-skid socks Managing Pain: Recommended pain medication schedule and management of side effects to minimize fall risk Instruct on pain and instruct on strategies to control pain Problem:Pain Goal:Manage Pain Completed patient and caregiver instructed on techniques to control pain including Pharmacological measures and Non-Pharmacological measures; positioning/elevation, distraction and breathing/relaxation. Monitor lower extremities for skin lesions and educate on proper foot care Problem:Diabetic Foot Care Goal:Manage diabetic foot care Completed patient instructed on diabetic foot care including daily skin inspection. Instruct on fire safety and safe and effective use of oxygen in the home Problem:Oxygen Goal:Manage oxygen Completed patient and caregiver instructed on: findings of safety risk assessment, causes of fires and precautions that can prevent fire-related injuries patient demonstrates non compliance with safety recommendations. Define patient s appetite/hydration status and implement strategies to improve compliance with prescribed diet and/or healthy nutrition. Problem:Nutrition/Hyd ration Goal:Manage Nutrition/Hydration Completed reinforced patient on implementing strategies to comply with healthy nutrition and adequate hydration Opioids- educated on high risk medication Problem:High Risk Medications Goal:Patient/caregive r will teach back high risk medication side effect and precaution education Completed patient and caregiver educated on taking medication(s) as prescribed by provider. Do not stop medication or alter doses without speaking with your provider. Discuss medication effectiveness or side effect concerns with your provider and home care team. Only take opioids as prescribed, do not share your medications, and take proper precautions in storing and properly disposing of opioids once no longer needed. Possible side effects of opioid medication including sedation, decreased rate of breathing, and constipation. Report over sedation to prescribing provider and practice deep breathing techniques every hour while awake. Prevent constipation by increasing water and fiber intake, increasing activity as tolerated, and use stool softener(s) as prescribed. Hypoglycemic (including insulin)- educated on high risk medication Problem:High Risk Medications Goal:Patient/caregive r will teach back high risk medication side effect and precaution education Completed patient and caregiver educated on taking medication(s) as prescribed by provider. Do not stop medication or skip/alter doses without speaking with your provider. Discuss medication effectiveness or side effect concerns with your provider and home care team. Check blood sugars and keep log as ordered by provider. Monitor for side effects of hypoglycemia such as increased weakness or shaking, moist skin, sweating, fast heartbeat, dizziness, sudden hunger, confusion, pale skin, numbness in mouth or tongue, irritability, nervousness, unsteadiness, nightmares, bad dreams, and restless sleep. Checking your blood sugar routinely and eating a consistent diabetic diet can help regulate blood sugars and reduce side effects. Antiplatelet- educated on high risk medication Problem:High Risk Medications Goal:Patient/caregive r will teach back high risk medication side effect and precaution education Completed patient educated on taking medication(s) as prescribed by provider. Do not stop medication or alter doses without speaking with your provider. Discuss medication effectiveness or side effect concerns with your provider and home care team. Discuss all medications you are taking, even grrv-wbj-dwgnxld medicines, with your provider and pharmacist since many drugs can interact with antiplatelet medications. If you forget to take a dose, DO NOT take a double dose. Take the missed dose as soon as possible on the same day. DO NOT take a double dose the next day to make up for the missed dose. Watch for signs of abnormal or excessive bleeding and bruising (refer to Bleeding Precautions education). Call your health care provider right away if you suspect something is wrong. Antibiotic- educated on high risk medication Problem:High Risk Medications Goal:Patient/caregive r will teach back high risk medication side effect and precaution education Completed patient educated on taking medication(s) as prescribed by provider. Do not stop medication or alter doses without speaking with your provider. Discuss medication effectiveness or side effect concerns with your provider and home care team. Take the full dispensed amount even if you start feeling better, as bacteria can become resistant to antibiotic treatment if you do not finish your prescription. Common side effects are upset stomach and diarrhea. Take your antibiotics with food unless otherwise indicated to help with indigestion. Taking an vfzr-jjk-mjaaktf probiotic or eating yogurt with live and active cultures three times a day can help prevent antibiotic-associated diarrhea. Call your provider immediately if you develop rashes or hives as this could be a delayed allergic reaction. Seek emergency treatment if you develop severe allergic reaction symptoms such as mouth or tongue swelling. Assess and instruct on measures to reduce edema Problem:SN Edema Goal:Patient will have improved edema management Completed patient and caregiver instructed on elevation, medication compliance and benefits of activity. Wound Care: Perform wound care (1) Description: Wound Care Order: Wound location: perianal Wound type (etiology): abcess Order: Lightly pack perineal wound with Io doform, cover with gauze and ABD. Wash wound with soap and water or wound cleanser with each dressing change Frequency: daily Wound care to be completed by caregiver except for scheduled SN wound care visits. Measure wound/incision at least weekly. Okay to substitute comparable products from home care formulary. Problem:SN Integumentary/Wounds Goal:Patient/Caregive r will have improved healing and be free of signs and symptoms of complications Completed Completed by SN. Patient did tolerate well. Instruct patient/caregiver healing process and management measures to promote healing and avoid complications Problem:SN Integumentary/Wounds Goal:Patient/Caregive r will have improved healing and be free of signs and symptoms of complications Completed patient and caregiver instructed on the following: healing process, signs and symptoms of infection, importance of good nutrition, importance of managing blood sugars, smoking cessation and when to report symptoms. Instruct Patient/Caregiver on wound/incision care procedure as ordered by physician Problem:SN Integumentary/Wounds Goal:Patient/Caregive r will have improved healing and be free of signs and symptoms of complications Completed patient instructed on wound care as ordered by Physician. Instruct on diabetes disease process and management of chronic condition Description: Patient has needs for education of diabetes. Problem:SN Diabetes Goal:Improved management of diabetes Completed patient assessed and reinforced on monitoring blood sugars 1x a day as found in the diabetes self-care booklets. documented in this encounter [facility]'s home Plan of care note* Visit Details Visit Type -SN ROUTINE Discipline -Half-Way Problems Problem Description Start Date Status Goals Interve ntions Medication Education Disciplines: Skilled Services 08/20/2022 Active 1 goal linked to scheduled/documen pawan intervention 1 goal intervention scheduled/document ed in this visit Mental Health Disciplines: Skilled Services 08/20/2022 Active 1 goal linked to scheduled/documen pawan intervention 1 goal intervention scheduled/document ed in this visit Sepsis Disciplines: Skilled Services 08/20/2022 Active 1 goal linked to scheduled/documen pawan intervention 1 goal intervention scheduled/document ed in this visit Risk for skin breakdown Disciplines: Skilled Services 08/20/2022 Active 1 goal linked to scheduled/documen pawan intervention 1 goal intervention scheduled/document ed in this visit Physician Specific Parameters Disciplines: Skilled Services 08/20/2022 Active 1 goal linked to scheduled/documen pawan intervention 1 goal intervention scheduled/document ed in this visit Risk for Falls Disciplines: Skilled Services 08/20/2022 Active 1 goal linked to scheduled/documen pawan intervention 1 goal intervention scheduled/document ed in this visit Pain Disciplines: Skilled Services 08/20/2022 Active 1 goal linked to scheduled/documen pawan intervention 1 goal intervention scheduled/document ed in this visit Diabetic Foot Care Disciplines: Skilled Services 08/20/2022 Active 1 goal linked to scheduled/documen pawan intervention 1 goal intervention scheduled/document ed in this visit Oxygen Disciplines: Skilled Services 08/20/2022 Active 1 goal linked to scheduled/documen pawan intervention 1 goal intervention scheduled/document ed in this visit Nutrition/Hydration Disciplines: Skilled Services 08/20/2022 Active 1 goal linked to scheduled/documen pawan intervention 1 goal intervention scheduled/document ed in this visit High Risk Medications Disciplines: Skilled Services 08/20/2022 Active 1 goal linked to scheduled/documen pawan intervention 4 goal interventions scheduled/document ed in this visit Discharge Disciplines: Skilled Services 08/20/2022 Active 1 goal linked to scheduled/documen pawan intervention 1 goal intervention scheduled/document ed in this visit Advance Directives Disciplines: Skilled Services 08/20/2022 Active 1 goal linked to scheduled/documen pawan intervention 1 goal intervention scheduled/document ed in this visit SN Edema Disciplines: SN 08/21/2022 Active 1 goal linked to scheduled/documen pawan intervention 1 goal intervention scheduled/document ed in this visit SN Integumentary/Wound s Disciplines: SN 08/21/2022 Active 1 goal linked to scheduled/documen pawan intervention 3 goal interventions scheduled/document ed in this visit SN Diabetes Disciplines: SN 08/21/2022 Active 1 goal linked to scheduled/documen pawan intervention 1 goal intervention scheduled/document ed in this visit SN Cardiovascular Condition Disciplines: SN 08/21/2022 Active 1 goal linked to scheduled/documen pawan intervention 1 goal intervention scheduled/document ed in this visit SN Learning Assessment Disciplines: SN 08/21/2022 Active 1 goal linked to scheduled/documen pawan intervention 1 goal intervention scheduled/document ed in this visit Goals Goal Associated Problem Outcome Goal Met? Visit Notes Patient/caregiver will demonstrate ability to obtain, store, identify and administer ordered medications, keep accurate medication list in home, and adhere to medication schedule Description: Patient/caregiver will demonstrate ability to obtain, store, identify and administer ordered medications, keep accurate medication list in home, and adhere to medication schedule by 10/18/22. Medication Education No Improved management of mental health condition(s) Description: Patient/caregiver will teach back mental health symptom identification and management techniques by 10/18/22. Mental Health No Patient/caregiver will be able to identify and report symptoms of sepsis Description: Patient/caregiver will be able to identify signs/symptoms of sepsis infection and will verbalize actions to take if suspected by 10/18/22. Sepsis No Manage risk for skin breakdown Description: Patient/caregiver will verbalize and demonstrate understanding of the risks and measures to be taken to monitor and prevent skin breakdown by 10/18/22. Risk for skin breakdown No Patient to maintain parameters within physician-specified ranges throughout certification period Physician Specific Parameters No Manage Risk for falls Description: Patient/caregiver will verbalize knowledge of individualized fall prevention strategies by 10/18/22. Risk for Falls No Manage Pain Description: Patient/caregiver will verbalize knowledge and understanding of appropriate techniques to control pain, including pain medication and non-pharmacological techniques. Patient will verbalize or demonstrate an acceptable level of pain as evidenced by a pain score of 0-3/10 and improvement in ability to perform activities of daily living to be achieved by 10/18/22. Pain No Manage diabetic foot care Description: Patient/caregiver will demonstrate basic understanding of and compliance with diabetic self-care management as evidenced by verbalizing purpose of daily foot care and assessment by 10/18/22. Diabetic Foot Care No Manage oxygen Description: Patient/caregiver will use oxygen safely and effectively in home by verbalizing and demonstrating oxygen safety by 10/18/22. Oxygen No Manage Nutrition/Hydration Description: Patient/caregiver will verbalize/demonstrate knowledge of prescribed diet and/or healthy nutrition to be achieved by 10/18/22. Nutrition/Hydration No Patient/caregiver will teach back high risk medication side effect and precaution education High Risk Medications No Manage discharge planning Description: Patient/caregiver will verbalize understanding of ongoing discharge plan provided related to disease management, arrangements for outpatient and/or community services, obtaining medications, supplies, and DME, as needed throughout certification period. Discharge No Patient/caregiver will make healthcare providers aware of and any changes to Advance Directives throughout certification period Advance Directives No Patient will have improved edema management Description: Patient/caregiver will demonstrate an understanding of edema management strategies as evidenced by resolution or stabilization of edema by 09/20/22. SN Edema No Patient/Caregiver will have improved healing and be free of signs and symptoms of complications Description: Patient/caregiver will verbalize management strategies to promote wound healing & prevent complications as evidenced by improved healing & no complications by 10/18/22. SN Integumentary/Wounds No Improved management of diabetes Description: Improve diabetic management as evidenced by patient/caregiver able to teach back diabetic management strategies by 10/18/22. SN Diabetes No Improved management of cardiovascular disease Description: Improve patient/caregiver management of cardiac disease as evidenced by patient/caregiver ability to teach back cardiac management strategies by 09/20/22. SN Cardiovascular Condition No Demonstrate understanding of education Description: Patient and/or caregiver will verbalize understanding of educational instruction provided throughout certification period. SN Learning Assessment No Interventions Intervention Associated Problem/Goal Status Variance Visit Notes Medication Education Description: Evaluate/instruct patient/caregiver on obtaining, storing, identifying and administering ordered medications as well as keeping accurate medication list in the home and adhereing to medication schedule Problem:Medication Education Goal:Patient/caregive r will demonstrate ability to obtain, store, identify and administer ordered medications, keep accurate medication list in home, and adhere to medication schedule Completed Patient instructed on importance of keeping accurate medication list in home, adhering to medication schedule and proper storage of medications. Instruct on depression symptoms and management Description: PHQ-2 score: below 3 PHQ-9 Score: none Problem:Mental Health Goal:Improved management of mental health condition(s) Completed Patient instructed on the following: signs of depression and when to report symptoms to physician, importance of medication adherence, record symptoms to assist with ongoing monitoring, coping skills & techniques, develop awareness of stressors, verbalize feelings, the importance of activity, goal planning and schedules and the benefits of adequate nutrition and hydration. Risk of Sepsis Description: Patient is at risk for sepsis. Monitor closely for s/s of sepsis. Problem:Sepsis Goal:Patient/caregive r will be able to identify and report symptoms of sepsis Completed Instruct on the risks and measures to be taken to prevent skin breakdown Description: Patient's John Score is: at risk. A John score <= to 18 indicates risk for skin breakdown. Problem:Risk for skin breakdown Goal:Manage risk for skin breakdown Completed patient instructed on maintaining skin integrity including: The need for every 1-2 hour turns, position changes, and maintaining activity as tolerated, Reducing risk of friction and shear, including use of draw sheet as appropriate, Elevating and protecting heels, Inspecting bony prominences, Routine skin care and Notifying [facility] clinician of changes to skin integrity Evaluation for pressure reduction surfaces completed for bed and chair. SPO2 Description: Notify if pulse ox is <92% at rest. Problem:Physician Specific Parameters Goal:Patient to maintain parameters within physician-specified ranges throughout certification period Completed Instruct on individual fall risk factors and strategies to prevent falls and injuries caused by falls. Problem:Risk for Falls Goal:Manage Risk for falls Completed SN: Patient instructed on Eliminating Environmental Hazards: Keep pathways clear, Keep pets out of pathways, Keep rooms and walkways well lit, Wear supportive shoes or non-skid socks and Keep frequently used items within reach Instruct on pain and instruct on strategies to control pain Problem:Pain Goal:Manage Pain Completed patient instructed on techniques to control pain including Pharmacological measures and Non-Pharmacological measures; rest, positioning/elevation, mobility/therapeutic exercise, distraction and breathing/relaxation. Monitor lower extremities for skin lesions and educate on proper foot care Problem:Diabetic Foot Care Goal:Manage diabetic foot care Completed patient instructed on diabetic foot care including daily skin inspection, wearing proper footwear/avoiding going barefoot, wash/dry feet thoroughly, applying moisturizer, avoiding between toes and toenail care. Instruct on fire safety and safe and effective use of oxygen in the home Problem:Oxygen Goal:Manage oxygen Completed patient instructed on: findings of safety risk assessment, causes of fires, firerisks for neighboring residences and buildings, precautions that can prevent fire-related injuries, oxygen safety as outlined in Home Care Patient Handbook and recommendations for specific safety risks identified in the home: maintenance of working smoke detectors and changing batteries, establishment of fire escape plan and telephone accessibility patient demonstrate compliance with safety recommendations. Define patient s appetite/hydration status and implement strategies to improve compliance with prescribed diet and/or healthy nutrition. Problem:Nutrition/Hyd ration Goal:Manage Nutrition/Hydration Completed reinforced patient on implementing strategies to comply with healthy nutrition and adequate hydration Opioids- educated on high risk medication Problem:High Risk Medications Goal:Patient/caregive r will teach back high risk medication side effect and precaution education Completed patient educated on taking medication(s) as prescribed by provider. Do not stop medication or alter doses without speaking with your provider. Discuss medication effectiveness or side effect concerns with your provider and home care team. Only take opioids as prescribed, do not share your medications, and take proper precautions in storing and properly disposing of opioids once no longer needed. Possible side effects of opioid medication including sedation, decreased rate of breathing, and constipation. Report over sedation to prescribing provider and practice deep breathing techniques every hour while awake. Prevent constipation by increasing water and fiber intake, increasing activity as tolerated, and use stool softener(s) as prescribed. Hypoglycemic (including insulin)- educated on high risk medication Problem:High Risk Medications Goal:Patient/caregive r will teach back high risk medication side effect and precaution education Completed patient educated on taking medication(s) as prescribed by provider. Do not stop medication or skip/alter doses without speaking with your provider. Discuss medication effectiveness or side effect concerns with your provider and home care team. Check blood sugars and keep log as ordered by provider. Monitor for side effects of hypoglycemia such as increased weakness or shaking, moist skin, sweating, fast heartbeat, dizziness, sudden hunger, confusion, pale skin, numbness in mouth or tongue, irritability, nervousness, unsteadiness, nightmares, bad dreams, and restless sleep. Checking your blood sugar routinely and eating a consistent diabetic diet can help regulate blood sugars and reduce side effects. Antiplatelet- educated on high risk medication Problem:High Risk Medications Goal:Patient/caregive r will teach back high risk medication side effect and precaution education Completed patient educated on taking medication(s) as prescribed by provider. Do not stop medication or alter doses without speaking with your provider. Discuss medication effectiveness or side effect concerns with your provider and home care team. Discuss all medications you are taking, even krae-kgw-sumeiqy medicines, with your provider and pharmacist since many drugs can interact with antiplatelet medications. If you forget to take a dose, DO NOT take a double dose. Take the missed dose as soon as possible on the same day. DO NOT take a double dose the next day to make up for the missed dose. Watch for signs of abnormal or excessive bleeding and bruising (refer to Bleeding Precautions education). Call your health care provider right away if you suspect something is wrong. Antibiotic- educated on high risk medication Problem:High Risk Medications Goal:Patient/caregive r will teach back high risk medication side effect and precaution education Completed patient educated on taking medication(s) as prescribed by provider. Do not stop medication or alter doses without speaking with your provider. Discuss medication effectiveness or side effect concerns with your provider and home care team. Take the full dispensed amount even if you start feeling better, as bacteria can become resistant to antibiotic treatment if you do not finish your prescription. Common side effects are upset stomach and diarrhea. Take your antibiotics with food unless otherwise indicated to help with indigestion. Taking an tmgc-dsz-cpjbxop probiotic or eating yogurt with live and active cultures three times a day can help prevent antibiotic-associated diarrhea. Call your provider immediately if you develop rashes or hives as this could be a delayed allergic reaction. Seek emergency treatment if you develop severe allergic reaction symptoms such as mouth or tongue swelling. Instruct on ongoing discharge plan Problem:Discharge Goal:Manage discharge planning Completed Ongoing Discharge plan: Discharge plan discussed with patient including frequency and duration for home SN and plan for transition to: caregiver assistance. Determine patient's Advance Directive Status Description: Patient does not have advance directives. Patient/Caregiver declined Advance Directive information. Problem:Advance Directives Goal:Patient/caregive r will make healthcare providers aware of and any changes to Advance Directives throughout certification period Completed Discussed Advance Directives with Patient and/or Caregiver. Referred patient to Home Care handbook for further information on Healthcare DPOA & Living Will. Assess and instruct on measures to reduce edema Problem:SN Edema Goal:Patient will have improved edema management Completed patient instructed on elevation, diet, medication compliance and benefits of activity. Wound Care: Perform wound care (1) Description: Wound Care Order: Wound location: perianal Wound type (etiology): abcess Order: Lightly pack perineal wound with Io doform, cover with gauze and ABD. Wash wound with soap and water or wound cleanser with each dressing change Frequency: daily Wound care to be completed by caregiver except for scheduled SN wound care visits. Measure wound/incision at least weekly. Okay to substitute comparable products from home care formulary. Problem:SN Integumentary/Wounds Goal:Patient/Caregive r will have improved healing and be free of signs and symptoms of complications Completed Completed by SN. Patient did tolerate well. Instruct patient/caregiver healing process and management measures to promote healing and avoid complications Problem:SN Integumentary/Wounds Goal:Patient/Caregive r will have improved healing and be free of signs and symptoms of complications Completed patient instructed on the following: healing process, signs and symptoms of infection, importance of good nutrition and when to report symptoms. Instruct Patient/Caregiver on wound/incision care procedure as ordered by physician Problem:SN Integumentary/Wounds Goal:Patient/Caregive r will have improved healing and be free of signs and symptoms of complications Completed patient instructed on and return demonstrated wound care as ordered by Physician. Instruct on diabetes disease process and management of chronic condition Description: Patient has needs for education of diabetes. Problem:SN Diabetes Goal:Improved management of diabetes Completed patient assessed and reinforced on diabetes disease process, how food and insulin affect blood sugar, diet education, how to carb count and recogonizing s/s of hypoglycemia and hyperglycemia as found in the diabetes self-care booklets. Instruct on cardiovascular disease process and management of condition Description: Patient has following cardiac diagnosis(es): CAD. Problem:SN Cardiovascular Condition Goal:Improved management of cardiovascular disease Completed patient instructed on cardiac disease process, self monitoring & symptom reporting and Cardiac Diet. Instruct and educate on knowledge deficits Problem:SN Learning Assessment Goal:Demonstrate understanding of education Completed patient verbalize and/or demonstrate understanding of nursing education completed today. Education methods include: verbal cues. Further education required to improve knowledge and compliance with depression/anxiety care management, fall prevention/home safety strategies and incision/wound care management. documented in this encounter [facility]'s home Plan of care note* Visit Details Visit Type -SN ROUTINE Discipline -Half-Way Problems Problem Description Start Date Status Goals Interve ntions Medication Education Disciplines: Skilled Services 08/20/2022 Active 1 goal linked to scheduled/documen pawan intervention 1 goal intervention scheduled/document ed in this visit Mental Health Disciplines: Skilled Services 08/20/2022 Active 1 goal linked to scheduled/documen pawan intervention 1 goal intervention scheduled/document ed in this visit Sepsis Disciplines: Skilled Services 08/20/2022 Active 1 goal linked to scheduled/documen pawan intervention 1 goal intervention scheduled/document ed in this visit Risk for skin breakdown Disciplines: Skilled Services 08/20/2022 Active 1 goal linked to scheduled/documen pawan intervention 1 goal intervention scheduled/document ed in this visit Physician Specific Parameters Disciplines: Skilled Services 08/20/2022 Active 1 goal linked to scheduled/documen pawan intervention 1 goal intervention scheduled/document ed in this visit Risk for Falls Disciplines: Skilled Services 08/20/2022 Active 1 goal linked to scheduled/documen pawan intervention 1 goal intervention scheduled/document ed in this visit Pain Disciplines: Skilled Services 08/20/2022 Active 1 goal linked to scheduled/documen pawan intervention 1 goal intervention scheduled/document ed in this visit Diabetic Foot Care Disciplines: Skilled Services 08/20/2022 Active 1 goal linked to scheduled/documen pawan intervention 1 goal intervention scheduled/document ed in this visit Oxygen Disciplines: Skilled Services 08/20/2022 Active 1 goal linked to scheduled/documen pawan intervention 1 goal intervention scheduled/document ed in this visit Nutrition/Hydration Disciplines: Skilled Services 08/20/2022 Active 1 goal linked to scheduled/documen pawan intervention 1 goal intervention scheduled/document ed in this visit High Risk Medications Disciplines: Skilled Services 08/20/2022 Active 1 goal linked to scheduled/documen pawan intervention 4 goal interventions scheduled/document ed in this visit Discharge Disciplines: Skilled Services 08/20/2022 Active 1 goal linked to scheduled/documen pawan intervention 1 goal intervention scheduled/document ed in this visit Advance Directives Disciplines: Skilled Services 08/20/2022 Active 1 goal linked to scheduled/documen pawan intervention 1 goal intervention scheduled/document ed in this visit SN Edema Disciplines: SN 08/21/2022 Active 1 goal linked to scheduled/documen pawan intervention 1 goal intervention scheduled/document ed in this visit SN Integumentary/Wound s Disciplines: SN 08/21/2022 Active 1 goal linked to scheduled/documen pawan intervention 3 goal interventions scheduled/document ed in this visit SN Diabetes Disciplines: SN 08/21/2022 Active 1 goal linked to scheduled/documen pawan intervention 1 goal intervention scheduled/document ed in this visit SN Cardiovascular Condition Disciplines: SN 08/21/2022 Active 1 goal linked to scheduled/documen pawan intervention 1 goal intervention scheduled/document ed in this visit SN Learning Assessment Disciplines: 08/21/2022 Active 1 goal linked to scheduled/documen pawan intervention 1 goal intervention scheduled/document ed in this visit Goals Goal Associated Problem Outcome Goal Met? Visit Notes Patient/caregiver will demonstrate ability to obtain, store, identify and administer ordered medications, keep accurate medication list in home, and adhere to medication schedule Description: Patient/caregiver will demonstrate ability to obtain, store, identify and administer ordered medications, keep accurate medication list in home, and adhere to medication schedule by 10/18/22. Medication Education No Improved management of mental health condition(s) Description: Patient/caregiver will teach back mental health symptom identification and management techniques by 10/18/22. Mental Health No Patient/caregiver will be able to identify and report symptoms of sepsis Description: Patient/caregiver will be able to identify signs/symptoms of sepsis infection and will verbalize actions to take if suspected by 10/18/22. Sepsis No Manage risk for skin breakdown Description: Patient/caregiver will verbalize and demonstrate understanding of the risks and measures to be taken to monitor and prevent skin breakdown by 10/18/22. Risk for skin breakdown No Patient to maintain parameters within physician-specified ranges throughout certification period Physician Specific Parameters No Manage Risk for falls Description: Patient/caregiver will verbalize knowledge of individualized fall prevention strategies by 10/18/22. Risk for Falls No Manage Pain Description: Patient/caregiver will verbalize knowledge and understanding of appropriate techniques to control pain, including pain medication and non-pharmacological techniques. Patient will verbalize or demonstrate an acceptable level of pain as evidenced by a pain score of 0-3/10 and improvement in ability to perform activities of daily living to be achieved by 10/18/22. Pain No Manage diabetic foot care Description: Patient/caregiver will demonstrate basic understanding of and compliance with diabetic self-care management as evidenced by verbalizing purpose of daily foot care and assessment by 10/18/22. Diabetic Foot Care No Manage oxygen Description: Patient/caregiver will use oxygen safely and effectively in home by verbalizing and demonstrating oxygen safety by 10/18/22. Oxygen No Manage Nutrition/Hydration Description: Patient/caregiver will verbalize/demonstrate knowledge of prescribed diet and/or healthy nutrition to be achieved by 10/18/22. Nutrition/Hydration No Patient/caregiver will teach back high risk medication side effect and precaution education High Risk Medications No Manage discharge planning Description: Patient/caregiver will verbalize understanding of ongoing discharge plan provided related to disease management, arrangements for outpatient and/or community services, obtaining medications, supplies, and DME, as needed throughout certification period. Discharge No Patient/caregiver will make healthcare providers aware of and any changes to Advance Directives throughout certification period Advance Directives No Patient will have improved edema management Description: Patient/caregiver will demonstrate an understanding of edema management strategies as evidenced by resolution or stabilization of edema by 09/20/22. SN Edema No Patient/Caregiver will have improved healing and be free of signs and symptoms of complications Description: Patient/caregiver will verbalize management strategies to promote wound healing & prevent complications as evidenced by improved healing & no complications by 10/18/22. SN Integumentary/Wounds No Improved management of diabetes Description: Improve diabetic management as evidenced by patient/caregiver able to teach back diabetic management strategies by 10/18/22. SN Diabetes No Improved management of cardiovascular disease Description: Improve patient/caregiver management of cardiac disease as evidenced by patient/caregiver ability to teach back cardiac management strategies by 09/20/22. SN Cardiovascular Condition No Demonstrate understanding of education Description: Patient and/or caregiver will verbalize understanding of educational instruction provided throughout certification period. SN Learning Assessment No Interventions Intervention Associated Problem/Goal Status Variance Visit Notes Medication Education Description: Evaluate/instruct patient/caregiver on obtaining, storing, identifying and administering ordered medications as well as keeping accurate medication list in the home and adhereing to medication schedule Problem:Medication Education Goal:Patient/caregive r will demonstrate ability to obtain, store, identify and administer ordered medications, keep accurate medication list in home, and adhere to medication schedule Completed Patient instructed on importance of keeping accurate medication list in home, adhering to medication schedule and proper storage of medications. Instruct on depression symptoms and management Description: PHQ-2 score: below 3 PHQ-9 Score: none Problem:Mental Health Goal:Improved management of mental health condition(s) Completed Patient instructed on the following: signs of depression and when to report symptoms to physician, importance of medication adherence, record symptoms to assist with ongoing monitoring, coping skills & techniques, develop awareness of stressors, verbalize feelings, the importance of activity, goal planning and schedules , the benefits of adequate nutrition and hydration and seeking support from family/friends. Risk of Sepsis Description: Patient is at risk for sepsis. Monitor closely for s/s of sepsis. Problem:Sepsis Goal:Patient/caregive r will be able to identify and report symptoms of sepsis Completed Instruct on the risks and measures to be taken to prevent skin breakdown Description: Patient's John Score is: at risk. A John score <= to 18 indicates risk for skin breakdown. Problem:Risk for skin breakdown Goal:Manage risk for skin breakdown Completed patient instructed on maintaining skin integrity including: The need for every 1-2 hour turns, position changes, and maintaining activity as tolerated, Reducing risk of friction and shear, including use of draw sheet as appropriate, Elevating and protecting heels, Inspecting bony prominences, Routine skin care and Notifying [facility] clinician of changes to skin integrity Evaluation for pressure reduction surfaces completed for bed and chair. SPO2 Description: Notify if pulse ox is <92% at rest. Problem:Physician Specific Parameters Goal:Patient to maintain parameters within physician-specified ranges throughout certification period Completed Instruct on individual fall risk factors and strategies to prevent falls and injuries caused by falls. Problem:Risk for Falls Goal:Manage Risk for falls Completed SN: Patient and Caregiver instructed on Eliminating Environmental Hazards: Keep pathways clear, Keep pets out of pathways, Keep rooms and walkways well lit, Wear supportive shoes or non-skid socks and Keep frequently used items within reach Instruct on pain and instruct on strategies to control pain Problem:Pain Goal:Manage Pain Completed patient instructed on techniques to control pain including Pharmacological measures and Non-Pharmacological measures; rest, positioning/elevation and mobility/therapeutic exercise. Monitor lower extremities for skin lesions and educate on proper foot care Problem:Diabetic Foot Care Goal:Manage diabetic foot care Completed patient instructed on diabetic foot care including daily skin inspection, wearing proper footwear/avoiding going barefoot, wash/dry feet thoroughly, applying moisturizer, avoiding between toes and toenail care. Instruct on fire safety and safe and effective use of oxygen in the home Problem:Oxygen Goal:Manage oxygen Completed patient instructed on: findings of safety risk assessment, causes of fires, firerisks for neighboring residences and buildings, precautions that can prevent fire-related injuries, oxygen safety as outlined in Home Care Patient Handbook and recommendations for specific safety risks identified in the home: maintenance of working smoke detectors and changing batteries, establishment of fire escape plan and telephone accessibility patient and caregiver demonstrate compliance with safety recommendations. Define patient s appetite/hydration status and implement strategies to improve compliance with prescribed diet and/or healthy nutrition. Problem:Nutrition/Hyd ration Goal:Manage Nutrition/Hydration Completed reinforced patient on implementing strategies to comply with prescribed diet, healthy nutrition and adequate hydration Opioids- educated on high risk medication Problem:High Risk Medications Goal:Patient/caregive r will teach back high risk medication side effect and precaution education Completed patient educated on taking medication(s) as prescribed by provider. Do not stop medication or alter doses without speaking with your provider. Discuss medication effectiveness or side effect concerns with your provider and home care team. Only take opioids as prescribed, do not share your medications, and take proper precautions in storing and properly disposing of opioids once no longer needed. Possible side effects of opioid medication including sedation, decreased rate of breathing, and constipation. Report over sedation to prescribing provider and practice deep breathing techniques every hour while awake. Prevent constipation by increasing water and fiber intake, increasing activity as tolerated, and use stool softener(s) as prescribed. Hypoglycemic (including insulin)- educated on high risk medication Problem:High Risk Medications Goal:Patient/caregive r will teach back high risk medication side effect and precaution education Completed patient educated on taking medication(s) as prescribed by provider. Do not stop medication or skip/alter doses without speaking with your provider. Discuss medication effectiveness or side effect concerns with your provider and home care team. Check blood sugars and keep log as ordered by provider. Monitor for side effects of hypoglycemia such as increased weakness or shaking, moist skin, sweating, fast heartbeat, dizziness, sudden hunger, confusion, pale skin, numbness in mouth or tongue, irritability, nervousness, unsteadiness, nightmares, bad dreams, and restless sleep. Checking your blood sugar routinely and eating a consistent diabetic diet can help regulate blood sugars and reduce side effects. Antiplatelet- educated on high risk medication Problem:High Risk Medications Goal:Patient/caregive r will teach back high risk medication side effect and precaution education Completed patient educated on taking medication(s) as prescribed by provider. Do not stop medication or alter doses without speaking with your provider. Discuss medication effectiveness or side effect concerns with your provider and home care team. Discuss all medications you are taking, even lxzq-soc-lugiwqy medicines, with your provider and pharmacist since many drugs can interact with antiplatelet medications. If you forget to take a dose, DO NOT take a double dose. Take the missed dose as soon as possible on the same day. DO NOT take a double dose the next day to make up for the missed dose. Watch for signs of abnormal or excessive bleeding and bruising (refer to Bleeding Precautions education). Call your health care provider right away if you suspect something is wrong. Antibiotic- educated on high risk medication Problem:High Risk Medications Goal:Patient/caregive r will teach back high risk medication side effect and precaution education Completed patient educated on taking medication(s) as prescribed by provider. Do not stop medication or alter doses without speaking with your provider. Discuss medication effectiveness or side effect concerns with your provider and home care team. Take the full dispensed amount even if you start feeling better, as bacteria can become resistant to antibiotic treatment if you do not finish your prescription. Common side effects are upset stomach and diarrhea. Take your antibiotics with food unless otherwise indicated to help with indigestion. Taking an vrxl-hyp-nedhaml probiotic or eating yogurt with live and active cultures three times a day can help prevent antibiotic-associated diarrhea. Call your provider immediately if you develop rashes or hives as this could be a delayed allergic reaction. Seek emergency treatment if you develop severe allergic reaction symptoms such as mouth or tongue swelling. Instruct on ongoing discharge plan Problem:Discharge Goal:Manage discharge planning Completed Ongoing Discharge plan: Discharge plan discussed with patient including frequency and duration for home SN and plan for transition to: caregiver assistance. Determine patient's Advance Directive Status Description: Patient does not have advance directives. Patient/Caregiver declined Advance Directive information. Problem:Advance Directives Goal:Patient/caregive r will make healthcare providers aware of and any changes to Advance Directives throughout certification period Completed Discussed Advance Directives with Patient and/or Caregiver. Referred patient to Home Care handbook for further information on Healthcare DPOA & Living Will. Assess and instruct on measures to reduce edema Problem:SN Edema Goal:Patient will have improved edema management Completed patient instructed on elevation, compression, diet, medication compliance and benefits of activity. Wound Care: Perform wound care (1) Description: Wound Care Order: Wound location: perianal Wound type (etiology): abcess Order: Lightly pack perineal wound with Io doform, cover with gauze and ABD. Wash wound with soap and water or wound cleanser with each dressing change Frequency: daily Wound care to be completed by caregiver except for scheduled SN wound care visits. Measure wound/incision at least weekly. Okay to substitute comparable products from home care formulary. Problem:SN Integumentary/Wounds Goal:Patient/Caregive r will have improved healing and be free of signs and symptoms of complications Completed Completed by SN. Patient did tolerate well. Instruct patient/caregiver healing process and management measures to promote healing and avoid complications Problem:SN Integumentary/Wounds Goal:Patient/Caregive r will have improved healing and be free of signs and symptoms of complications Completed patient instructed on the following: healing process, signs and symptoms of infection, importance of good nutrition, smoking cessation and when to report symptoms. Instruct Patient/Caregiver on wound/incision care procedure as ordered by physician Problem:SN Integumentary/Wounds Goal:Patient/Caregive r will have improved healing and be free of signs and symptoms of complications Completed patient instructed on wound care as ordered by Physician. Instruct on diabetes disease process and management of chronic condition Description: Patient has needs for education of diabetes. Problem:SN Diabetes Goal:Improved management of diabetes Completed patient assessed and reinforced on diabetes disease process, diet education, how to carb count, recogonizing s/s of hypoglycemia and hyperglycemia and managing sick days as found in the diabetes self-care booklets. Instruct on cardiovascular disease process and management of condition Description: Patient has following cardiac diagnosis(es): CAD. Problem:SN Cardiovascular Condition Goal:Improved management of cardiovascular disease Completed patient instructed on cardiac disease process, self monitoring & symptom reporting and Cardiac Diet. Instruct and educate on knowledge deficits Problem:SN Learning Assessment Goal:Demonstrate understanding of education Completed patient verbalize and/or demonstrate understanding of nursing education completed today. Education methods include: verbal cues. Further education required to improve knowledge and compliance with fall prevention/home safety strategies and incision/wound care management. documented in this encounter [facility]'s home Plan of care note* Visit Details Visit Type -SN ROUTINE Discipline -Half-Way Problems Problem Description Start Date Status Goals Interve ntions Medication Education Disciplines: Skilled Services 08/20/2022 Active 1 goal linked to scheduled/documen pawan intervention 1 goal intervention scheduled/document ed in this visit Mental Health Disciplines: Skilled Services 08/20/2022 Active 1 goal linked to scheduled/documen pawan intervention 1 goal intervention scheduled/document ed in this visit Sepsis Disciplines: Skilled Services 08/20/2022 Active 1 goal linked to scheduled/documen pawan intervention 1 goal intervention scheduled/document ed in this visit Risk for skin breakdown Disciplines: Skilled Services 08/20/2022 Active 1 goal linked to scheduled/documen pawan intervention 1 goal intervention scheduled/document ed in this visit Physician Specific Parameters Disciplines: Skilled Services 08/20/2022 Active 1 goal linked to scheduled/documen pawan intervention 1 goal intervention scheduled/document ed in this visit Risk for Falls Disciplines: Skilled Services 08/20/2022 Active 1 goal linked to scheduled/documen pawan intervention 1 goal intervention scheduled/document ed in this visit Pain Disciplines: Skilled Services 08/20/2022 Active 1 goal linked to scheduled/documen pawan intervention 1 goal intervention scheduled/document ed in this visit Diabetic Foot Care Disciplines: Skilled Services 08/20/2022 Active 1 goal linked to scheduled/documen pawan intervention 1 goal intervention scheduled/document ed in this visit Oxygen Disciplines: Skilled Services 08/20/2022 Active 1 goal linked to scheduled/documen pawan intervention 1 goal intervention scheduled/document ed in this visit Nutrition/Hydration Disciplines: Skilled Services 08/20/2022 Active 1 goal linked to scheduled/documen pawan intervention 1 goal intervention scheduled/document ed in this visit High Risk Medications Disciplines: Skilled Services 08/20/2022 Active 1 goal linked to scheduled/documen pawan intervention 4 goal interventions scheduled/document ed in this visit Discharge Disciplines: Skilled Services 08/20/2022 Active 1 goal linked to scheduled/documen pawan intervention 1 goal intervention scheduled/document ed in this visit Advance Directives Disciplines: Skilled Services 08/20/2022 Active 1 goal linked to scheduled/documen pawan intervention 1 goal intervention scheduled/document ed in this visit SN Edema Disciplines: SN 08/21/2022 Active 1 goal linked to scheduled/documen pawan intervention 1 goal intervention scheduled/document ed in this visit SN Integumentary/Wound s Disciplines: SN 08/21/2022 Active 1 goal linked to scheduled/documen pawan intervention 3 goal interventions scheduled/document ed in this visit SN Diabetes Disciplines: SN 08/21/2022 Active 1 goal linked to scheduled/documen pawan intervention 1 goal intervention scheduled/document ed in this visit SN Cardiovascular Condition Disciplines: SN 08/21/2022 Active 1 goal linked to scheduled/documen pawan intervention 1 goal intervention scheduled/document ed in this visit SN Learning Assessment Disciplines: SN 08/21/2022 Active 1 goal linked to scheduled/documen pawan intervention 1 goal intervention scheduled/document ed in this visit Goals Goal Associated Problem Outcome Goal Met? Visit Notes Patient/caregiver will demonstrate ability to obtain, store, identify and administer ordered medications, keep accurate medication list in home, and adhere to medication schedule Description: Patient/caregiver will demonstrate ability to obtain, store, identify and administer ordered medications, keep accurate medication list in home, and adhere to medication schedule by 10/18/22. Medication Education No Improved management of mental health condition(s) Description: Patient/caregiver will teach back mental health symptom identification and management techniques by 10/18/22. Mental Health No Patient/caregiver will be able to identify and report symptoms of sepsis Description: Patient/caregiver will be able to identify signs/symptoms of sepsis infection and will verbalize actions to take if suspected by 10/18/22. Sepsis No Manage risk for skin breakdown Description: Patient/caregiver will verbalize and demonstrate understanding of the risks and measures to be taken to monitor and prevent skin breakdown by 10/18/22. Risk for skin breakdown No Patient to maintain parameters within physician-specified ranges throughout certification period Physician Specific Parameters No Manage Risk for falls Description: Patient/caregiver will verbalize knowledge of individualized fall prevention strategies by 10/18/22. Risk for Falls No Manage Pain Description: Patient/caregiver will verbalize knowledge and understanding of appropriate techniques to control pain, including pain medication and non-pharmacological techniques. Patient will verbalize or demonstrate an acceptable level of pain as evidenced by a pain score of 0-3/10 and improvement in ability to perform activities of daily living to be achieved by 10/18/22. Pain No Manage diabetic foot care Description: Patient/caregiver will demonstrate basic understanding of and compliance with diabetic self-care management as evidenced by verbalizing purpose of daily foot care and assessment by 10/18/22. Diabetic Foot Care No Manage oxygen Description: Patient/caregiver will use oxygen safely and effectively in home by verbalizing and demonstrating oxygen safety by 10/18/22. Oxygen No Manage Nutrition/Hydration Description: Patient/caregiver will verbalize/demonstrate knowledge of prescribed diet and/or healthy nutrition to be achieved by 10/18/22. Nutrition/Hydration No Patient/caregiver will teach back high risk medication side effect and precaution education High Risk Medications No Manage discharge planning Description: Patient/caregiver will verbalize understanding of ongoing discharge plan provided related to disease management, arrangements for outpatient and/or community services, obtaining medications, supplies, and DME, as needed throughout certification period. Discharge No Patient/caregiver will make healthcare providers aware of and any changes to Advance Directives throughout certification period Advance Directives No Patient will have improved edema management Description: Patient/caregiver will demonstrate an understanding of edema management strategies as evidenced by resolution or stabilization of edema by 09/20/22. SN Edema No Patient/Caregiver will have improved healing and be free of signs and symptoms of complications Description: Patient/caregiver will verbalize management strategies to promote wound healing & prevent complications as evidenced by improved healing & no complications by 10/18/22. SN Integumentary/Wounds No Improved management of diabetes Description: Improve diabetic management as evidenced by patient/caregiver able to teach back diabetic management strategies by 10/18/22. SN Diabetes No Improved management of cardiovascular disease Description: Improve patient/caregiver management of cardiac disease as evidenced by patient/caregiver ability to teach back cardiac management strategies by 09/20/22. SN Cardiovascular Condition No Demonstrate understanding of education Description: Patient and/or caregiver will verbalize understanding of educational instruction provided throughout certification period. SN Learning Assessment No Interventions Intervention Associated Problem/Goal Status Variance Visit Notes Medication Education Description: Evaluate/instruct patient/caregiver on obtaining, storing, identifying and administering ordered medications as well as keeping accurate medication list in the home and adhereing to medication schedule Problem:Medication Education Goal:Patient/caregive r will demonstrate ability to obtain, store, identify and administer ordered medications, keep accurate medication list in home, and adhere to medication schedule Completed Patient instructed on importance of keeping accurate medication list in home, adhering to medication schedule and proper storage of medications. Instruct on depression symptoms and management Description: PHQ-2 score: below 3 PHQ-9 Score: none Problem:Mental Health Goal:Improved management of mental health condition(s) Completed Patient instructed on the following: signs of depression and when to report symptoms to physician, importance of medication adherence, record symptoms to assist with ongoing monitoring, coping skills & techniques, develop awareness of stressors, verbalize feelings, the importance of activity, goal planning and schedules and the benefits of adequate nutrition and hydration. Risk of Sepsis Description: Patient is at risk for sepsis. Monitor closely for s/s of sepsis. Problem:Sepsis Goal:Patient/caregive r will be able to identify and report symptoms of sepsis Completed Instruct on the risks and measures to be taken to prevent skin breakdown Description: Patient's John Score is: at risk. A John score <= to 18 indicates risk for skin breakdown. Problem:Risk for skin breakdown Goal:Manage risk for skin breakdown Completed patient instructed on maintaining skin integrity including: The need for every 1-2 hour turns, position changes, and maintaining activity as tolerated, Reducing risk of friction and shear, including use of draw sheet as appropriate, Elevating and protecting heels, Inspecting bony prominences, Routine skin care and Notifying [facility] clinician of changes to skin integrity Evaluation for pressure reduction surfaces completed for bed and chair. SPO2 Description: Notify if pulse ox is <92% at rest. Problem:Physician Specific Parameters Goal:Patient to maintain parameters within physician-specified ranges throughout certification period Completed Instruct on individual fall risk factors and strategies to prevent falls and injuries caused by falls. Problem:Risk for Falls Goal:Manage Risk for falls Completed SN: Patient instructed on Eliminating Environmental Hazards: Keep pathways clear, Keep pets out of pathways, Keep rooms and walkways well lit, Wear supportive shoes or non-skid socks and Keep frequently used items within reach Instruct on pain and instruct on strategies to control pain Problem:Pain Goal:Manage Pain Completed patient instructed on techniques to control pain including Pharmacological measures and Non-Pharmacological measures; rest, positioning/elevation and mobility/therapeutic exercise. Monitor lower extremities for skin lesions and educate on proper foot care Problem:Diabetic Foot Care Goal:Manage diabetic foot care Completed patient instructed on diabetic foot care including daily skin inspection, wearing proper footwear/avoiding going barefoot, wash/dry feet thoroughly and applying moisturizer, avoiding between toes. Instruct on fire safety and safe and effective use of oxygen in the home Problem:Oxygen Goal:Manage oxygen Completed patient instructed on: findings of safety risk assessment, causes of fires, firerisks for neighboring residences and buildings, precautions that can prevent fire-related injuries and oxygen safety as outlined in Home Care Patient Handbook patient demonstrate compliance with safety recommendations. Define patient s appetite/hydration status and implement strategies to improve compliance with prescribed diet and/or healthy nutrition. Problem:Nutrition/Hyd ration Goal:Manage Nutrition/Hydration Completed reinforced patient on implementing strategies to comply with prescribed diet, healthy nutrition and adequate hydration Opioids- educated on high risk medication Problem:High Risk Medications Goal:Patient/caregive r will teach back high risk medication side effect and precaution education Completed patient educated on taking medication(s) as prescribed by provider. Do not stop medication or alter doses without speaking with your provider. Discuss medication effectiveness or side effect concerns with your provider and home care team. Only take opioids as prescribed, do not share your medications, and take proper precautions in storing and properly disposing of opioids once no longer needed. Possible side effects of opioid medication including sedation, decreased rate of breathing, and constipation. Report over sedation to prescribing provider and practice deep breathing techniques every hour while awake. Prevent constipation by increasing water and fiber intake, increasing activity as tolerated, and use stool softener(s) as prescribed. Hypoglycemic (including insulin)- educated on high risk medication Problem:High Risk Medications Goal:Patient/caregive r will teach back high risk medication side effect and precaution education Completed patient educated on taking medication(s) as prescribed by provider. Do not stop medication or skip/alter doses without speaking with your provider. Discuss medication effectiveness or side effect concerns with your provider and home care team. Check blood sugars and keep log as ordered by provider. Monitor for side effects of hypoglycemia such as increased weakness or shaking, moist skin, sweating, fast heartbeat, dizziness, sudden hunger, confusion, pale skin, numbness in mouth or tongue, irritability, nervousness, unsteadiness, nightmares, bad dreams, and restless sleep. Checking your blood sugar routinely and eating a consistent diabetic diet can help regulate blood sugars and reduce side effects. Antiplatelet- educated on high risk medication Problem:High Risk Medications Goal:Patient/caregive r will teach back high risk medication side effect and precaution education Completed patient educated on taking medication(s) as prescribed by provider. Do not stop medication or alter doses without speaking with your provider. Discuss medication effectiveness or side effect concerns with your provider and home care team. Discuss all medications you are taking, even kolp-fyi-wxuivok medicines, with your provider and pharmacist since many drugs can interact with antiplatelet medications. If you forget to take a dose, DO NOT take a double dose. Take the missed dose as soon as possible on the same day. DO NOT take a double dose the next day to make up for the missed dose. Watch for signs of abnormal or excessive bleeding and bruising (refer to Bleeding Precautions education). Call your health care provider right away if you suspect something is wrong. Antibiotic- educated on high risk medication Problem:High Risk Medications Goal:Patient/caregive r will teach back high risk medication side effect and precaution education Completed patient educated on taking medication(s) as prescribed by provider. Do not stop medication or alter doses without speaking with your provider. Discuss medication effectiveness or side effect concerns with your provider and home care team. Take the full dispensed amount even if you start feeling better, as bacteria can become resistant to antibiotic treatment if you do not finish your prescription. Common side effects are upset stomach and diarrhea. Take your antibiotics with food unless otherwise indicated to help with indigestion. Taking an hhbv-uva-jjiqylo probiotic or eating yogurt with live and active cultures three times a day can help prevent antibiotic-associated diarrhea. Call your provider immediately if you develop rashes or hives as this could be a delayed allergic reaction. Seek emergency treatment if you develop severe allergic reaction symptoms such as mouth or tongue swelling. Instruct on ongoing discharge plan Problem:Discharge Goal:Manage discharge planning Completed Ongoing Discharge plan: Discharge plan discussed with patient including frequency and duration for home SN and plan for transition to: live independently at home without ongoing services. Determine patient's Advance Directive Status Description: Patient does not have advance directives. Patient/Caregiver declined Advance Directive information. Problem:Advance Directives Goal:Patient/caregive r will make healthcare providers aware of and any changes to Advance Directives throughout certification period Completed Discussed Advance Directives with Patient and/or Caregiver. Referred patient to Home Care handbook for further information on Healthcare DPOA & Living Will. Assess and instruct on measures to reduce edema Problem:SN Edema Goal:Patient will have improved edema management Completed patient instructed on elevation, diet, medication compliance and benefits of activity. Wound Care: Perform wound care (1) Description: Wound Care Order: Wound location: perianal Wound type (etiology): abcess Order: Lightly pack perineal wound with Io doform, cover with gauze and ABD. Wash wound with soap and water or wound cleanser with each dressing change Frequency: daily Wound care to be completed by caregiver except for scheduled SN wound care visits. Measure wound/incision at least weekly. Okay to substitute comparable products from home care formulary. Problem:SN Integumentary/Wounds Goal:Patient/Caregive r will have improved healing and be free of signs and symptoms of complications Completed Completed by SN. Patient did tolerate well. Instruct patient/caregiver healing process and management measures to promote healing and avoid complications Problem:SN Integumentary/Wounds Goal:Patient/Caregive r will have improved healing and be free of signs and symptoms of complications Completed patient instructed on the following: healing process, signs and symptoms of infection, importance of good nutrition, importance of managing blood sugars, smoking cessation and when to report symptoms. Instruct Patient/Caregiver on wound/incision care procedure as ordered by physician Problem:SN Integumentary/Wounds Goal:Patient/Caregive r will have improved healing and be free of signs and symptoms of complications Completed patient instructed on and return demonstrated wound care as ordered by Physician. Instruct on diabetes disease process and management of chronic condition Description: Patient has needs for education of diabetes. Problem:SN Diabetes Goal:Improved management of diabetes Completed patient assessed and reinforced on diabetes disease process, diet education, how to carb count, recogonizing s/s of hypoglycemia and hyperglycemia and managing sick days as found in the diabetes self-care booklets. Instruct on cardiovascular disease process and management of condition Description: Patient has following cardiac diagnosis(es): CAD. Problem:SN Cardiovascular Condition Goal:Improved management of cardiovascular disease Completed patient instructed on cardiac disease process, self monitoring & symptom reporting and Cardiac Diet. Instruct and educate on knowledge deficits Problem:SN Learning Assessment Goal:Demonstrate understanding of education Completed patient verbalize and/or demonstrate understanding of nursing education completed today. Education methods include: verbal cues. Further education required to improve knowledge and compliance with diabetic care management, fall prevention/home safety strategies and incision/wound care management. [facility] Visit Details Visit Type -SN ROUTINE Discipline -Half-Way Problems Problem Description Start Date Status Goals Interve ntions Medication Education Disciplines: Skilled Services 08/20/2022 Active 1 goal linked to scheduled/documen pawan intervention 1 goal intervention scheduled/document ed in this visit Mental Health Disciplines: Skilled Services 08/20/2022 Active 1 goal linked to scheduled/documen pawan intervention 1 goal intervention scheduled/document ed in this visit Sepsis Disciplines: Skilled Services 08/20/2022 Active 1 goal linked to scheduled/documen pawan intervention 1 goal intervention scheduled/document ed in this visit Risk for skin breakdown Disciplines: Skilled Services 08/20/2022 Active 1 goal linked to scheduled/documen pawan intervention 1 goal intervention scheduled/document ed in this visit Physician Specific Parameters Disciplines: Skilled Services 08/20/2022 Active 1 goal linked to scheduled/documen pawan intervention 1 goal intervention scheduled/document ed in this visit Risk for Falls Disciplines: Skilled Services 08/20/2022 Active 1 goal linked to scheduled/documen pawan intervention 1 goal intervention scheduled/document ed in this visit Pain Disciplines: Skilled Services 08/20/2022 Active 1 goal linked to scheduled/documen pawan intervention 1 goal intervention scheduled/document ed in this visit Diabetic Foot Care Disciplines: Skilled Services 08/20/2022 Active 1 goal linked to scheduled/documen pawan intervention 1 goal intervention scheduled/document ed in this visit Oxygen Disciplines: Skilled Services 08/20/2022 Active 1 goal linked to scheduled/documen pawan intervention 1 goal intervention scheduled/document ed in this visit Nutrition/Hydration Disciplines: Skilled Services 08/20/2022 Active 1 goal linked to scheduled/documen pawan intervention 1 goal intervention scheduled/document ed in this visit High Risk Medications Disciplines: Skilled Services 08/20/2022 Active 1 goal linked to scheduled/documen pawan intervention 4 goal interventions scheduled/document ed in this visit Discharge Disciplines: Skilled Services 08/20/2022 Active 1 goal linked to scheduled/documen pawan intervention 1 goal intervention scheduled/document ed in this visit Advance Directives Disciplines: Skilled Services 08/20/2022 Active 1 goal linked to scheduled/documen pawan intervention 1 goal intervention scheduled/document ed in this visit SN Edema Disciplines: SN 08/21/2022 Active 1 goal linked to scheduled/documen pawan intervention 1 goal intervention scheduled/document ed in this visit SN Integumentary/Wound s Disciplines: SN 08/21/2022 Active 1 goal linked to scheduled/documen pawan intervention 3 goal interventions scheduled/document ed in this visit SN Diabetes Disciplines: SN 08/21/2022 Active 1 goal linked to scheduled/documen pawan intervention 1 goal intervention scheduled/document ed in this visit SN Cardiovascular Condition Disciplines: SN 08/21/2022 Active 1 goal linked to scheduled/documen pawan intervention 1 goal intervention scheduled/document ed in this visit SN Learning Assessment Disciplines: 08/21/2022 Active 1 goal linked to scheduled/documen pawan intervention 1 goal intervention scheduled/document ed in this visit Goals Goal Associated Problem Outcome Goal Met? Visit Notes Patient/caregiver will demonstrate ability to obtain, store, identify and administer ordered medications, keep accurate medication list in home, and adhere to medication schedule Description: Patient/caregiver will demonstrate ability to obtain, store, identify and administer ordered medications, keep accurate medication list in home, and adhere to medication schedule by 10/18/22. Medication Education No Improved management of mental health condition(s) Description: Patient/caregiver will teach back mental health symptom identification and management techniques by 10/18/22. Mental Health No Patient/caregiver will be able to identify and report symptoms of sepsis Description: Patient/caregiver will be able to identify signs/symptoms of sepsis infection and will verbalize actions to take if suspected by 10/18/22. Sepsis No Manage risk for skin breakdown Description: Patient/caregiver will verbalize and demonstrate understanding of the risks and measures to be taken to monitor and prevent skin breakdown by 10/18/22. Risk for skin breakdown No Patient to maintain parameters within physician-specified ranges throughout certification period Physician Specific Parameters No Manage Risk for falls Description: Patient/caregiver will verbalize knowledge of individualized fall prevention strategies by 10/18/22. Risk for Falls No Manage Pain Description: Patient/caregiver will verbalize knowledge and understanding of appropriate techniques to control pain, including pain medication and non-pharmacological techniques. Patient will verbalize or demonstrate an acceptable level of pain as evidenced by a pain score of 0-3/10 and improvement in ability to perform activities of daily living to be achieved by 10/18/22. Pain No Manage diabetic foot care Description: Patient/caregiver will demonstrate basic understanding of and compliance with diabetic self-care management as evidenced by verbalizing purpose of daily foot care and assessment by 10/18/22. Diabetic Foot Care No Manage oxygen Description: Patient/caregiver will use oxygen safely and effectively in home by verbalizing and demonstrating oxygen safety by 10/18/22. Oxygen No Manage Nutrition/Hydration Description: Patient/caregiver will verbalize/demonstrate knowledge of prescribed diet and/or healthy nutrition to be achieved by 10/18/22. Nutrition/Hydration No Patient/caregiver will teach back high risk medication side effect and precaution education High Risk Medications No Manage discharge planning Description: Patient/caregiver will verbalize understanding of ongoing discharge plan provided related to disease management, arrangements for outpatient and/or community services, obtaining medications, supplies, and DME, as needed throughout certification period. Discharge No Patient/caregiver will make healthcare providers aware of and any changes to Advance Directives throughout certification period Advance Directives No Patient will have improved edema management Description: Patient/caregiver will demonstrate an understanding of edema management strategies as evidenced by resolution or stabilization of edema by 09/20/22. SN Edema No Patient/Caregiver will have improved healing and be free of signs and symptoms of complications Description: Patient/caregiver will verbalize management strategies to promote wound healing & prevent complications as evidenced by improved healing & no complications by 10/18/22. SN Integumentary/Wounds No Improved management of diabetes Description: Improve diabetic management as evidenced by patient/caregiver able to teach back diabetic management strategies by 10/18/22. SN Diabetes No Improved management of cardiovascular disease Description: Improve patient/caregiver management of cardiac disease as evidenced by patient/caregiver ability to teach back cardiac management strategies by 09/20/22. SN Cardiovascular Condition No Demonstrate understanding of education Description: Patient and/or caregiver will verbalize understanding of educational instruction provided throughout certification period. SN Learning Assessment No Interventions Intervention Associated Problem/Goal Status Variance Visit Notes Medication Education Description: Evaluate/instruct patient/caregiver on obtaining, storing, identifying and administering ordered medications as well as keeping accurate medication list in the home and adhereing to medication schedule Problem:Medication Education Goal:Patient/caregive r will demonstrate ability to obtain, store, identify and administer ordered medications, keep accurate medication list in home, and adhere to medication schedule Completed Patient instructed on importance of keeping accurate medication list in home, adhering to medication schedule and proper storage of medications. Instruct on depression symptoms and management Description: PHQ-2 score: below 3 PHQ-9 Score: none Problem:Mental Health Goal:Improved management of mental health condition(s) Completed Patient instructed on the following: signs of depression and when to report symptoms to physician, importance of medication adherence, record symptoms to assist with ongoing monitoring, coping skills & techniques, develop awareness of stressors, verbalize feelings, the importance of activity, goal planning and schedules , the benefits of adequate nutrition and hydration and seeking support from family/friends. Risk of Sepsis Description: Patient is at risk for sepsis. Monitor closely for s/s of sepsis. Problem:Sepsis Goal:Patient/caregive r will be able to identify and report symptoms of sepsis Completed Instruct on the risks and measures to be taken to prevent skin breakdown Description: Patient's John Score is: at risk. A John score <= to 18 indicates risk for skin breakdown. Problem:Risk for skin breakdown Goal:Manage risk for skin breakdown Completed patient instructed on maintaining skin integrity including: The need for every 1-2 hour turns, position changes, and maintaining activity as tolerated, Reducing risk of friction and shear, including use of draw sheet as appropriate, Elevating and protecting heels, Routine skin care and Notifying [facility] clinician of changes to skin integrity Evaluation for pressure reduction surfaces completed for bed and chair. SPO2 Description: Notify if pulse ox is <92% at rest. Problem:Physician Specific Parameters Goal:Patient to maintain parameters within physician-specified ranges throughout certification period Completed Instruct on individual fall risk factors and strategies to prevent falls and injuries caused by falls. Problem:Risk for Falls Goal:Manage Risk for falls Completed SN: Patient instructed on Eliminating Environmental Hazards: Keep pathways clear, Keep pets out of pathways, Keep rooms and walkways well lit, Wear supportive shoes or non-skid socks and Keep frequently used items within reach Instruct on pain and instruct on strategies to control pain Problem:Pain Goal:Manage Pain Completed patient instructed on techniques to control pain including Pharmacological measures and Non-Pharmacological measures; rest, positioning/elevation, mobility/therapeutic exercise and distraction. Monitor lower extremities for skin lesions and educate on proper foot care Problem:Diabetic Foot Care Goal:Manage diabetic foot care Completed patient instructed on diabetic foot care including daily skin inspection, wearing proper footwear/avoiding going barefoot, wash/dry feet thoroughly, applying moisturizer, avoiding between toes and toenail care. Instruct on fire safety and safe and effective use of oxygen in the home Problem:Oxygen Goal:Manage oxygen Completed patient instructed on: findings of safety risk assessment, causes of fires, firerisks for neighboring residences and buildings, precautions that can prevent fire-related injuries and oxygen safety as outlined in Home Care Patient Handbook patient demonstrate compliance with safety recommendations. Define patient s appetite/hydration status and implement strategies to improve compliance with prescribed diet and/or healthy nutrition. Problem:Nutrition/Hyd ration Goal:Manage Nutrition/Hydration Completed reinforced patient on implementing strategies to comply with prescribed diet, healthy nutrition and adequate hydration Opioids- educated on high risk medication Problem:High Risk Medications Goal:Patient/caregive r will teach back high risk medication side effect and precaution education Completed patient educated on taking medication(s) as prescribed by provider. Do not stop medication or alter doses without speaking with your provider. Discuss medication effectiveness or side effect concerns with your provider and home care team. Only take opioids as prescribed, do not share your medications, and take proper precautions in storing and properly disposing of opioids once no longer needed. Possible side effects of opioid medication including sedation, decreased rate of breathing, and constipation. Report over sedation to prescribing provider and practice deep breathing techniques every hour while awake. Prevent constipation by increasing water and fiber intake, increasing activity as tolerated, and use stool softener(s) as prescribed. Hypoglycemic (including insulin)- educated on high risk medication Problem:High Risk Medications Goal:Patient/caregive r will teach back high risk medication side effect and precaution education Completed patient educated on taking medication(s) as prescribed by provider. Do not stop medication or skip/alter doses without speaking with your provider. Discuss medication effectiveness or side effect concerns with your provider and home care team. Check blood sugars and keep log as ordered by provider. Monitor for side effects of hypoglycemia such as increased weakness or shaking, moist skin, sweating, fast heartbeat, dizziness, sudden hunger, confusion, pale skin, numbness in mouth or tongue, irritability, nervousness, unsteadiness, nightmares, bad dreams, and restless sleep. Checking your blood sugar routinely and eating a consistent diabetic diet can help regulate blood sugars and reduce side effects. Antiplatelet- educated on high risk medication Problem:High Risk Medications Goal:Patient/caregive r will teach back high risk medication side effect and precaution education Completed patient educated on taking medication(s) as prescribed by provider. Do not stop medication or alter doses without speaking with your provider. Discuss medication effectiveness or side effect concerns with your provider and home care team. Discuss all medications you are taking, even [id number] medicines, with your provider and pharmacist since many drugs can interact with antiplatelet medications. If you forget to take a dose, DO NOT take a double dose. Take the missed dose as soon as possible on the same day. DO NOT take a double dose the next day to make up for the missed dose. Watch for signs of abnormal or excessive bleeding and bruising (refer to Bleeding Precautions education). Call your health care provider right away if you suspect something is wrong. Antibiotic- educated on high risk medication Problem:High Risk Medications Goal:Patient/caregive r will teach back high risk medication side effect and precaution education Completed patient educated on taking medication(s) as prescribed by provider. Do not stop medication or alter doses without speaking with your provider. Discuss medication effectiveness or side effect concerns with your provider and home care team. Take the full dispensed amount even if you start feeling better, as bacteria can become resistant to antibiotic treatment if you do not finish your prescription. Common side effects are upset stomach and diarrhea. Take your antibiotics with food unless otherwise indicated to help with indigestion. Taking an drgu-iqb-pzlttlo probiotic or eating yogurt with live and active cultures three times a day can help prevent antibiotic-associated diarrhea. Call your provider immediately if you develop rashes or hives as this could be a delayed allergic reaction. Seek emergency treatment if you develop severe allergic reaction symptoms such as mouth or tongue swelling. Instruct on ongoing discharge plan Problem:Discharge Goal:Manage discharge planning Completed Ongoing Discharge plan: Discharge plan discussed with caregiver and pt including frequency and duration for home SN and plan for transition to: caregiver assistance. Determine patient's Advance Directive Status Description: Patient does not have advance directives. Patient/Caregiver declined Advance Directive information. Problem:Advance Directives Goal:Patient/caregive r will make healthcare providers aware of and any changes to Advance Directives throughout certification period Completed Discussed Advance Directives with Patient and/or Caregiver. Referred patient to Home Care handbook for further information on Healthcare DPOA & Living Will. Assess and instruct on measures to reduce edema Problem:SN Edema Goal:Patient will have improved edema management Completed patient instructed on elevation, compression, diet, medication compliance and benefits of activity. Wound Care: Perform wound care (1) Description: Wound Care Order: Wound location: perianal Wound type (etiology): abcess Order: Lightly pack perineal wound with Io doform, cover with gauze and ABD. Wash wound with soap and water or wound cleanser with each dressing change Frequency: daily Wound care to be completed by caregiver except for scheduled SN wound care visits. Measure wound/incision at least weekly. Okay to substitute comparable products from home care formulary. Problem:SN Integumentary/Wounds Goal:Patient/Caregive r will have improved healing and be free of signs and symptoms of complications Completed Completed by SN. Patient did tolerate well. Instruct patient/caregiver healing process and management measures to promote healing and avoid complications Problem:SN Integumentary/Wounds Goal:Patient/Caregive r will have improved healing and be free of signs and symptoms of complications Completed patient instructed on the following: healing process, signs and symptoms of infection, importance of good nutrition, importance of managing blood sugars, smoking cessation and when to report symptoms. Instruct Patient/Caregiver on wound/incision care procedure as ordered by physician Problem:SN Integumentary/Wounds Goal:Patient/Caregive r will have improved healing and be free of signs and symptoms of complications Completed patient instructed on wound care as ordered by Physician. Instruct on diabetes disease process and management of chronic condition Description: Patient has needs for education of diabetes. Problem:SN Diabetes Goal:Improved management of diabetes Completed patient assessed and reinforced on diabetes disease process, diet education, how to carb count, recogonizing s/s of hypoglycemia and hyperglycemia and managing sick days as found in the diabetes self-care booklets. Instruct on cardiovascular disease process and management of condition Description: Patient has following cardiac diagnosis(es): CAD. Problem:SN Cardiovascular Condition Goal:Improved management of cardiovascular disease Completed patient instructed on cardiac disease process, self monitoring & symptom reporting and Cardiac Diet. Instruct and educate on knowledge deficits Problem:SN Learning Assessment Goal:Demonstrate understanding of education Completed patient verbalize and/or demonstrate understanding of nursing education completed today. Education methods include: verbal cues. Further education required to improve knowledge and compliance with depression/anxiety care management, diabetic care management, fall prevention/home safety strategies, incision/wound care management and pulmonary disease management. [facility] Visit Details Visit Type -SN ROUTINE Discipline -Half-Way Problems Problem Description Start Date Status Goals Interve ntions Medication Education Disciplines: Skilled Services 08/20/2022 Active 1 goal linked to scheduled/documen pawan intervention 1 goal intervention scheduled/document ed in this visit Mental Health Disciplines: Skilled Services 08/20/2022 Active 1 goal linked to scheduled/documen pawan intervention 1 goal intervention scheduled/document ed in this visit Sepsis Disciplines: Skilled Services 08/20/2022 Active 1 goal linked to scheduled/documen pawan intervention 1 goal intervention scheduled/document ed in this visit Risk for skin breakdown Disciplines: Skilled Services 08/20/2022 Active 1 goal linked to scheduled/documen pawan intervention 1 goal intervention scheduled/document ed in this visit Physician Specific Parameters Disciplines: Skilled Services 08/20/2022 Active 1 goal linked to scheduled/documen pawan intervention 1 goal intervention scheduled/document ed in this visit Risk for Falls Disciplines: Skilled Services 08/20/2022 Active 1 goal linked to scheduled/documen pawan intervention 1 goal intervention scheduled/document ed in this visit Pain Disciplines: Skilled Services 08/20/2022 Active 1 goal linked to scheduled/documen pawan intervention 1 goal intervention scheduled/document ed in this visit Diabetic Foot Care Disciplines: Skilled Services 08/20/2022 Active 1 goal linked to scheduled/documen pawan intervention 1 goal intervention scheduled/document ed in this visit Oxygen Disciplines: Skilled Services 08/20/2022 Active 1 goal linked to scheduled/documen pawan intervention 1 goal intervention scheduled/document ed in this visit Nutrition/Hydration Disciplines: Skilled Services 08/20/2022 Active 1 goal linked to scheduled/documen pawan intervention 1 goal intervention scheduled/document ed in this visit High Risk Medications Disciplines: Skilled Services 08/20/2022 Active 1 goal linked to scheduled/documen pawan intervention 4 goal interventions scheduled/document ed in this visit Discharge Disciplines: Skilled Services 08/20/2022 Active 1 goal linked to scheduled/documen pawan intervention 1 goal intervention scheduled/document ed in this visit Advance Directives Disciplines: Skilled Services 08/20/2022 Active 1 goal linked to scheduled/documen pawan intervention 1 goal intervention scheduled/document ed in this visit SN Edema Disciplines: SN 08/20/2022 Active 1 goal linked to scheduled/documen pawan intervention 1 goal intervention scheduled/document ed in this visit SN Integumentary/Wound s Disciplines: SN 08/20/2022 Active 1 goal linked to scheduled/documen pawan intervention 3 goal interventions scheduled/document ed in this visit SN Diabetes Disciplines: SN 08/20/2022 Active 1 goal linked to scheduled/documen pawan intervention 1 goal intervention scheduled/document ed in this visit SN Cardiovascular Condition Disciplines: SN 08/20/2022 Active 1 goal linked to scheduled/documen pawan intervention 1 goal intervention scheduled/document ed in this visit SN Learning Assessment Disciplines: SN 08/20/2022 Active 1 goal linked to scheduled/documen pawan intervention 1 goal intervention scheduled/document ed in this visit SN COPD Disciplines: SN 09/22/2022 Active 1 goal linked to scheduled/documen pawan intervention 3 goal interventions scheduled/document ed in this visit Goals Goal Associated Problem Outcome Goal Met? Visit Notes Patient/caregiver will demonstrate ability to obtain, store, identify and administer ordered medications, keep accurate medication list in home, and adhere to medication schedule Description: Patient/caregiver will demonstrate ability to obtain, store, identify and administer ordered medications, keep accurate medication list in home, and adhere to medication schedule by 10/18/22. Medication Education No Improved management of mental health condition(s) Description: Patient/caregiver will teach back mental health symptom identification and management techniques by 10/18/22. Mental Health No Patient/caregiver will be able to identify and report symptoms of sepsis Description: Patient/caregiver will be able to identify signs/symptoms of sepsis infection and will verbalize actions to take if suspected by 10/18/22. Sepsis No Manage risk for skin breakdown Description: Patient/caregiver will verbalize and demonstrate understanding of the risks and measures to be taken to monitor and prevent skin breakdown by 10/18/22. Risk for skin breakdown No Patient to maintain parameters within physician-specified ranges throughout certification period Physician Specific Parameters No Manage Risk for falls Description: Patient/caregiver will verbalize knowledge of individualized fall prevention strategies by 10/18/22. Risk for Falls No Manage Pain Description: Patient/caregiver will verbalize knowledge and understanding of appropriate techniques to control pain, including pain medication and non-pharmacological techniques. Patient will verbalize or demonstrate an acceptable level of pain as evidenced by a pain score of 0-3/10 and improvement in ability to perform activities of daily living to be achieved by 10/18/22. Pain No Manage diabetic foot care Description: Patient/caregiver will demonstrate basic understanding of and compliance with diabetic self-care management as evidenced by verbalizing purpose of daily foot care and assessment by 10/18/22. Diabetic Foot Care No Manage oxygen Description: Patient/caregiver will use oxygen safely and effectively in home by verbalizing and demonstrating oxygen safety by 10/18/22. Oxygen No Manage Nutrition/Hydration Description: Patient/caregiver will verbalize/demonstrate knowledge of prescribed diet and/or healthy nutrition to be achieved by 10/18/22. Nutrition/Hydration No Patient/caregiver will teach back high risk medication side effect and precaution education High Risk Medications No Manage discharge planning Description: Patient/caregiver will verbalize understanding of ongoing discharge plan provided related to disease management, arrangements for outpatient and/or community services, obtaining medications, supplies, and DME, as needed throughout certification period. Discharge No Patient/caregiver will make healthcare providers aware of and any changes to Advance Directives throughout certification period Advance Directives No Patient will have improved edema management Description: Patient/caregiver will demonstrate an understanding of edema management strategies as evidenced by resolution or stabilization of edema by 09/20/22. SN Edema No Patient/Caregiver will have improved healing and be free of signs and symptoms of complications Description: Patient/caregiver will verbalize management strategies to promote wound healing & prevent complications as evidenced by improved healing & no complications by 10/18/22. SN Integumentary/Wounds No Improved management of diabetes Description: Improve diabetic management as evidenced by patient/caregiver able to teach back diabetic management strategies by 10/18/22. SN Diabetes No Improved management of cardiovascular disease Description: Improve patient/caregiver management of cardiac disease as evidenced by patient/caregiver ability to teach back cardiac management strategies by 09/20/22. SN Cardiovascular Condition No Demonstrate understanding of education Description: Patient and/or caregiver will verbalize understanding of educational instruction provided throughout certification period. SN Learning Assessment No Improved management of COPD Description: Improve COPD management as evidenced by decreased reports of dyspnea, medication compliance, and patient able to teach back strategies to manage condition. Goal to be achieved by 10-18-22 SN COPD No Interventions Intervention Associated Problem/Goal Status Variance Visit Notes Medication Education Description: Evaluate/instruct patient/caregiver on obtaining, storing, identifying and administering ordered medications as well as keeping accurate medication list in the home and adhereing to medication schedule Problem:Medication Education Goal:Patient/caregive r will demonstrate ability to obtain, store, identify and administer ordered medications, keep accurate medication list in home, and adhere to medication schedule Completed Patient instructed on importance of keeping accurate medication list in home, adhering to medication schedule and proper storage of medications. Instruct on depression symptoms and management Description: PHQ-2 score: below 3 PHQ-9 Score: none Problem:Mental Health Goal:Improved management of mental health condition(s) Completed Patient instructed on the following: signs of depression and when to report symptoms to physician, importance of medication adherence, record symptoms to assist with ongoing monitoring, coping skills & techniques, develop awareness of stressors, verbalize feelings, the importance of activity, goal planning and schedules , the benefits of adequate nutrition and hydration and seeking support from family/friends. Risk of Sepsis Description: Patient is at risk for sepsis. Monitor closely for s/s of sepsis. Problem:Sepsis Goal:Patient/caregive r will be able to identify and report symptoms of sepsis Completed Instruct on the risks and measures to be taken to prevent skin breakdown Description: Patient's John Score is: at risk. A John score <= to 18 indicates risk for skin breakdown. Problem:Risk for skin breakdown Goal:Manage risk for skin breakdown Completed patient instructed on maintaining skin integrity including: The need for every 1-2 hour turns, position changes, and maintaining activity as tolerated, Reducing risk of friction and shear, including use of draw sheet as appropriate, Elevating and protecting heels, Routine skin care and Notifying [facility] clinician of changes to skin integrity Evaluation for pressure reduction surfaces completed for bed and chair. SPO2 Description: Notify if pulse ox is <92% at rest. Problem:Physician Specific Parameters Goal:Patient to maintain parameters within physician-specified ranges throughout certification period Completed Instruct on individual fall risk factors and strategies to prevent falls and injuries caused by falls. Problem:Risk for Falls Goal:Manage Risk for falls Completed SN: Patient instructed on Eliminating Environmental Hazards: Keep pathways clear, Keep pets out of pathways, Keep rooms and walkways well lit, Wear supportive shoes or non-skid socks and Keep frequently used items within reach Instruct on pain and instruct on strategies to control pain Problem:Pain Goal:Manage Pain Completed patient instructed on techniques to control pain including Pharmacological measures and Non-Pharmacological measures; rest, positioning/elevation, mobility/therapeutic exercise and distraction. Monitor lower extremities for skin lesions and educate on proper foot care Problem:Diabetic Foot Care Goal:Manage diabetic foot care Completed patient instructed on diabetic foot care including daily skin inspection, wearing proper footwear/avoiding going barefoot, wash/dry feet thoroughly, applying moisturizer, avoiding between toes and toenail care. Instruct on fire safety and safe and effective use of oxygen in the home Problem:Oxygen Goal:Manage oxygen Completed patient instructed on: findings of safety risk assessment, causes of fires, firerisks for neighboring residences and buildings, precautions that can prevent fire-related injuries, oxygen safety as outlined in Home Care Patient Handbook and recommendations for specific safety risks identified in the home: maintenance of working smoke detectors and changing batteries, establishment of fire escape plan, telephone accessibility, removal of burning candles and smoking materials and implementation of no-smoking policy in home, including e-cigarettes and posting of No-Smoking signs on entrance doors patient demonstrate compliance with safety recommendations. Define patient s appetite/hydration status and implement strategies to improve compliance with prescribed diet and/or healthy nutrition. Problem:Nutrition/Hyd ration Goal:Manage Nutrition/Hydration Completed reinforced patient on implementing strategies to comply with prescribed diet, healthy nutrition and adequate hydration Opioids- educated on high risk medication Problem:High Risk Medications Goal:Patient/caregive r will teach back high risk medication side effect and precaution education Completed patient educated on taking medication(s) as prescribed by provider. Do not stop medication or alter doses without speaking with your provider. Discuss medication effectiveness or side effect concerns with your provider and home care team. Only take opioids as prescribed, do not share your medications, and take proper precautions in storing and properly disposing of opioids once no longer needed. Possible side effects of opioid medication including sedation, decreased rate of breathing, and constipation. Report over sedation to prescribing provider and practice deep breathing techniques every hour while awake. Prevent constipation by increasing water and fiber intake, increasing activity as tolerated, and use stool softener(s) as prescribed. Hypoglycemic (including insulin)- educated on high risk medication Problem:High Risk Medications Goal:Patient/caregive r will teach back high risk medication side effect and precaution education Completed patient educated on taking medication(s) as prescribed by provider. Do not stop medication or skip/alter doses without speaking with your provider. Discuss medication effectiveness or side effect concerns with your provider and home care team. Check blood sugars and keep log as ordered by provider. Monitor for side effects of hypoglycemia such as increased weakness or shaking, moist skin, sweating, fast heartbeat, dizziness, sudden hunger, confusion, pale skin, numbness in mouth or tongue, irritability, nervousness, unsteadiness, nightmares, bad dreams, and restless sleep. Checking your blood sugar routinely and eating a consistent diabetic diet can help regulate blood sugars and reduce side effects. Antiplatelet- educated on high risk medication Problem:High Risk Medications Goal:Patient/caregive r will teach back high risk medication side effect and precaution education Completed patient educated on taking medication(s) as prescribed by provider. Do not stop medication or alter doses without speaking with your provider. Discuss medication effectiveness or side effect concerns with your provider and home care team. Discuss all medications you are taking, even zryd-[id number] medicines, with your provider and pharmacist since many drugs can interact with antiplatelet medications. If you forget to take a dose, DO NOT take a double dose. Take the missed dose as soon as possible on the same day. DO NOT take a double dose the next day to make up for the missed dose. Watch for signs of abnormal or excessive bleeding and bruising (refer to Bleeding Precautions education). Call your health care provider right away if you suspect something is wrong. Antibiotic- educated on high risk medication Problem:High Risk Medications Goal:Patient/caregive r will teach back high risk medication side effect and precaution education Completed patient educated on taking medication(s) as prescribed by provider. Do not stop medication or alter doses without speaking with your provider. Discuss medication effectiveness or side effect concerns with your provider and home care team. Take the full dispensed amount even if you start feeling better, as bacteria can become resistant to antibiotic treatment if you do not finish your prescription. Common side effects are upset stomach and diarrhea. Take your antibiotics with food unless otherwise indicated to help with indigestion. Taking an dote-qjh-[id number] probiotic or eating yogurt with live and active cultures three times a day can help prevent antibiotic-associated diarrhea. Call your provider immediately if you develop rashes or hives as this could be a delayed allergic reaction. Seek emergency treatment if you develop severe allergic reaction symptoms such as mouth or tongue swelling. Instruct on ongoing discharge plan Problem:Discharge Goal:Manage discharge planning Completed Ongoing Discharge plan: Discharge plan discussed with patient including frequency and duration for home SN and plan for transition to: caregiver assistance. Determine patient's Advance Directive Status Description: Patient does not have advance directives. Patient/Caregiver declined Advance Directive information. Problem:Advance Directives Goal:Patient/caregive r will make healthcare providers aware of and any changes to Advance Directives throughout certification period Completed Discussed Advance Directives with Patient and/or Caregiver. Referred patient to Home Care handbook for further information on Healthcare DPOA & Living Will. Assess and instruct on measures to reduce edema Problem:SN Edema Goal:Patient will have improved edema management Completed patient instructed on elevation, compression, diet, medication compliance and benefits of activity. Wound Care: Perform wound care (1) Description: Wound Care Order: Wound location: perianal Wound type (etiology): abcess Order: Lightly pack perineal wound with Io doform, cover with gauze and ABD. Wash wound with soap and water or wound cleanser with each dressing change Frequency: daily Wound care to be completed by caregiver except for scheduled SN wound care visits. Measure wound/incision at least weekly. Okay to substitute comparable products from home care formulary. Problem:SN Integumentary/Wounds Goal:Patient/Caregive r will have improved healing and be free of signs and symptoms of complications Completed Completed by SN. Patient did tolerate well. Instruct patient/caregiver healing process and management measures to promote healing and avoid complications Problem:SN Integumentary/Wounds Goal:Patient/Caregive r will have improved healing and be free of signs and symptoms of complications Completed patient instructed on the following: healing process, signs and symptoms of infection, importance of good nutrition, importance of managing blood sugars, smoking cessation and when to report symptoms. Instruct Patient/Caregiver on wound/incision care procedure as ordered by physician Problem:SN Integumentary/Wounds Goal:Patient/Caregive r will have improved healing and be free of signs and symptoms of complications Completed patient instructed on and return demonstrated wound care as ordered by Physician. Instruct on diabetes disease process and management of chronic condition Description: Patient has needs for education of diabetes. Problem:SN Diabetes Goal:Improved management of diabetes Completed patient assessed and reinforced on diabetes disease process, how food and insulin affect blood sugar, diet education, how to carb count, recogonizing s/s of hypoglycemia and hyperglycemia and managing sick days as found in the diabetes self-care booklets. Instruct on cardiovascular disease process and management of condition Description: Patient has following cardiac diagnosis(es): CAD. Problem:SN Cardiovascular Condition Goal:Improved management of cardiovascular disease Completed patient instructed on cardiac disease process, self monitoring & symptom reporting and Cardiac Diet. Instruct and educate on knowledge deficits Problem:SN Learning Assessment Goal:Demonstrate understanding of education Completed patient verbalize and/or demonstrate understanding of nursing education completed today. Education methods include: verbal cues. Further education required to improve knowledge and compliance with cardiac disease management, depression/anxiety care management, diabetic care management, fall prevention/home safety strategies, incision/wound care management, oxygen safety and pulmonary disease management. Maintenance COPD Description: Reinforce Acute and Sub-acute management education. Instruct on review zone sheet, nutrition in relation to COPD management, energy conservation, pacing activities, independence in ADLs vs what caregiver should be helping with, home exercise, additional COPD resources available like chronic care clinics as found in the COPD binder. Problem:SN COPD Goal:Improved management of COPD Completed Reinforced Acute and Sub-acute management education. patient reinforced on zone sheet, nutrition in relation to COPD management and energy conservation pacing activities, Romeo in ADLs vs what caregiver should be helping with and home exercise as found in the COPD binder. Sub-acute COPD Description: Reinforce Acute COPD management education. Instruct on zone sheet, methods to reduce infection risks, anxiety management including relaxation techniques, importance of sleep, stress reduction, and coping strategies for living with COPD as found in the COPD binder. Problem:SN COPD Goal:Improved management of COPD Completed Reinforced Acute COPD management education. patient reinforced on zone sheet, methods to reduce infection risks and coping strategies for living with COPD as found in the COPD binder. Acute COPD Description: Instruct on defintion of COPD, signs and symptoms of COPD exacerbation, use of zone sheet, use of MDIs, difference between rescue vs maintenance inhalers, use of nebulizer, smoking cessation, breathing management including pursed lip breathing, diaphragmatic breathing, positioning to reduce SOB, controlled coughing, use of incentive spirometer, and use of acapela as found in the COPD binder. Problem:SN COPD Goal:Improved management of COPD Completed patient reinforced on defintion of COPD, signs and symptoms of COPD exacerbation, use of zone sheet, use of MDIs, difference between rescue vs maintenance inhalers, use of nebulizer, smoking cessation and breathing management: pursed lip breathing, diaphragmatic breathing and positioning to reduce SOB as found in the COPD binder. [facility] Visit Details Visit Type -SN ROUTINE Discipline -Half-Way Problems Problem Description Start Date Status Goals Interve ntions Medication Education Disciplines: Skilled Services 08/20/2022 Active 1 goal linked to scheduled/documen pawan intervention 1 goal intervention scheduled/document ed in this visit Mental Health Disciplines: Skilled Services 08/20/2022 Active 1 goal linked to scheduled/documen pawan intervention 1 goal intervention scheduled/document ed in this visit Sepsis Disciplines: Skilled Services 08/20/2022 Active 1 goal linked to scheduled/documen pawan intervention 1 goal intervention scheduled/document ed in this visit Risk for skin breakdown Disciplines: Skilled Services 08/20/2022 Active 1 goal linked to scheduled/documen pawan intervention 1 goal intervention scheduled/document ed in this visit Physician Specific Parameters Disciplines: Skilled Services 08/20/2022 Active 1 goal linked to scheduled/documen pawan intervention 1 goal intervention scheduled/document ed in this visit Risk for Falls Disciplines: Skilled Services 08/20/2022 Active 1 goal linked to scheduled/documen pawan intervention 1 goal intervention scheduled/document ed in this visit Pain Disciplines: Skilled Services 08/20/2022 Active 1 goal linked to scheduled/documen pawan intervention 1 goal intervention scheduled/document ed in this visit Diabetic Foot Care Disciplines: Skilled Services 08/20/2022 Active 1 goal linked to scheduled/documen pawan intervention 1 goal intervention scheduled/document ed in this visit Oxygen Disciplines: Skilled Services 08/20/2022 Active 1 goal linked to scheduled/documen pawan intervention 1 goal intervention scheduled/document ed in this visit Nutrition/Hydration Disciplines: Skilled Services 08/20/2022 Active 1 goal linked to scheduled/documen pawan intervention 1 goal intervention scheduled/document ed in this visit High Risk Medications Disciplines: Skilled Services 08/20/2022 Active 1 goal linked to scheduled/documen pawan intervention 4 goal interventions scheduled/document ed in this visit Discharge Disciplines: Skilled Services 08/20/2022 Active 1 goal linked to scheduled/documen pawan intervention 1 goal intervention scheduled/document ed in this visit Advance Directives Disciplines: Skilled Services 08/20/2022 Active 1 goal linked to scheduled/documen pawan intervention 1 goal intervention scheduled/document ed in this visit SN Edema Disciplines: SN 08/20/2022 Active 1 goal linked to scheduled/documen pawan intervention 1 goal intervention scheduled/document ed in this visit SN Integumentary/Wound s Disciplines: SN 08/20/2022 Active 1 goal linked to scheduled/documen pawan intervention 3 goal interventions scheduled/document ed in this visit SN Diabetes Disciplines: SN 08/20/2022 Active 1 goal linked to scheduled/documen pawan intervention 1 goal intervention scheduled/document ed in this visit SN Cardiovascular Condition Disciplines: SN 08/20/2022 Active 1 goal linked to scheduled/documen pawan intervention 1 goal intervention scheduled/document ed in this visit SN Learning Assessment Disciplines: SN 08/20/2022 Active 1 goal linked to scheduled/documen pawan intervention 1 goal intervention scheduled/document ed in this visit SN COPD Disciplines: SN 09/22/2022 Active 1 goal linked to scheduled/documen pawan intervention 3 goal interventions scheduled/document ed in this visit Goals Goal Associated Problem Outcome Goal Met? Visit Notes Patient/caregiver will demonstrate ability to obtain, store, identify and administer ordered medications, keep accurate medication list in home, and adhere to medication schedule Description: Patient/caregiver will demonstrate ability to obtain, store, identify and administer ordered medications, keep accurate medication list in home, and adhere to medication schedule by 10/18/22. Medication Education No Improved management of mental health condition(s) Description: Patient/caregiver will teach back mental health symptom identification and management techniques by 10/18/22. Mental Health No Patient/caregiver will be able to identify and report symptoms of sepsis Description: Patient/caregiver will be able to identify signs/symptoms of sepsis infection and will verbalize actions to take if suspected by 10/18/22. Sepsis No Manage risk for skin breakdown Description: Patient/caregiver will verbalize and demonstrate understanding of the risks and measures to be taken to monitor and prevent skin breakdown by 10/18/22. Risk for skin breakdown No Patient to maintain parameters within physician-specified ranges throughout certification period Physician Specific Parameters No Manage Risk for falls Description: Patient/caregiver will verbalize knowledge of individualized fall prevention strategies by 10/18/22. Risk for Falls No Manage Pain Description: Patient/caregiver will verbalize knowledge and understanding of appropriate techniques to control pain, including pain medication and non-pharmacological techniques. Patient will verbalize or demonstrate an acceptable level of pain as evidenced by a pain score of 0-3/10 and improvement in ability to perform activities of daily living to be achieved by 10/18/22. Pain No Manage diabetic foot care Description: Patient/caregiver will demonstrate basic understanding of and compliance with diabetic self-care management as evidenced by verbalizing purpose of daily foot care and assessment by 10/18/22. Diabetic Foot Care No Manage oxygen Description: Patient/caregiver will use oxygen safely and effectively in home by verbalizing and demonstrating oxygen safety by 10/18/22. Oxygen No Manage Nutrition/Hydration Description: Patient/caregiver will verbalize/demonstrate knowledge of prescribed diet and/or healthy nutrition to be achieved by 10/18/22. Nutrition/Hydration No Patient/caregiver will teach back high risk medication side effect and precaution education High Risk Medications No Manage discharge planning Description: Patient/caregiver will verbalize understanding of ongoing discharge plan provided related to disease management, arrangements for outpatient and/or community services, obtaining medications, supplies, and DME, as needed throughout certification period. Discharge No Patient/caregiver will make healthcare providers aware of and any changes to Advance Directives throughout certification period Advance Directives No Patient will have improved edema management Description: Patient/caregiver will demonstrate an understanding of edema management strategies as evidenced by resolution or stabilization of edema by 09/20/22. SN Edema No Patient/Caregiver will have improved healing and be free of signs and symptoms of complications Description: Patient/caregiver will verbalize management strategies to promote wound healing & prevent complications as evidenced by improved healing & no complications by 10/18/22. SN Integumentary/Wounds No Improved management of diabetes Description: Improve diabetic management as evidenced by patient/caregiver able to teach back diabetic management strategies by 10/18/22. SN Diabetes No Improved management of cardiovascular disease Description: Improve patient/caregiver management of cardiac disease as evidenced by patient/caregiver ability to teach back cardiac management strategies by 09/20/22. SN Cardiovascular Condition No Demonstrate understanding of education Description: Patient and/or caregiver will verbalize understanding of educational instruction provided throughout certification period. SN Learning Assessment No Improved management of COPD Description: Improve COPD management as evidenced by decreased reports of dyspnea, medication compliance, and patient able to teach back strategies to manage condition. Goal to be achieved by 10-18-22 SN COPD No Interventions Intervention Associated Problem/Goal Status Variance Visit Notes Medication Education Description: Evaluate/instruct patient/caregiver on obtaining, storing, identifying and administering ordered medications as well as keeping accurate medication list in the home and adhereing to medication schedule Problem:Medication Education Goal:Patient/caregive r will demonstrate ability to obtain, store, identify and administer ordered medications, keep accurate medication list in home, and adhere to medication schedule Completed Patient instructed on importance of keeping accurate medication list in home, adhering to medication schedule and proper storage of medications. Instruct on depression symptoms and management Description: PHQ-2 score: below 3 PHQ-9 Score: none Problem:Mental Health Goal:Improved management of mental health condition(s) Completed Patient instructed on the following: signs of depression and when to report symptoms to physician, importance of medication adherence, record symptoms to assist with ongoing monitoring, coping skills & techniques, develop awareness of stressors, verbalize feelings, the importance of activity, goal planning and schedules , the benefits of adequate nutrition and hydration and seeking support from family/friends. Risk of Sepsis Description: Patient is at risk for sepsis. Monitor closely for s/s of sepsis. Problem:Sepsis Goal:Patient/caregive r will be able to identify and report symptoms of sepsis Completed Instruct on the risks and measures to be taken to prevent skin breakdown Description: Patient's John Score is: at risk. A John score <= to 18 indicates risk for skin breakdown. Problem:Risk for skin breakdown Goal:Manage risk for skin breakdown Completed patient instructed on maintaining skin integrity including: The need for every 1-2 hour turns, position changes, and maintaining activity as tolerated, Reducing risk of friction and shear, including use of draw sheet as appropriate, Elevating and protecting heels, Inspecting bony prominences, Routine skin care and Notifying [facility] clinician of changes to skin integrity Evaluation for pressure reduction surfaces completed for bed and chair. SPO2 Description: Notify if pulse ox is <92% at rest. Problem:Physician Specific Parameters Goal:Patient to maintain parameters within physician-specified ranges throughout certification period Completed Instruct on individual fall risk factors and strategies to prevent falls and injuries caused by falls. Problem:Risk for Falls Goal:Manage Risk for falls Completed SN: Patient instructed on Eliminating Environmental Hazards: Keep pathways clear, Keep pets out of pathways, Keep rooms and walkways well lit, Wear supportive shoes or non-skid socks and Keep frequently used items within reach Instruct on pain and instruct on strategies to control pain Problem:Pain Goal:Manage Pain Completed patient instructed on techniques to control pain including Pharmacological measures. Monitor lower extremities for skin lesions and educate on proper foot care Problem:Diabetic Foot Care Goal:Manage diabetic foot care Completed patient instructed on diabetic foot care including daily skin inspection, wearing proper footwear/avoiding going barefoot, wash/dry feet thoroughly, applying moisturizer, avoiding between toes and toenail care. Instruct on fire safety and safe and effective use of oxygen in the home Problem:Oxygen Goal:Manage oxygen Completed patient instructed on: findings of safety risk assessment, causes of fires, firerisks for neighboring residences and buildings, precautions that can prevent fire-related injuries, oxygen safety as outlined in Home Care Patient Handbook and recommendations for specific safety risks identified in the home: maintenance of working smoke detectors and changing batteries, establishment of fire escape plan, telephone accessibility, removal of burning candles and smoking materials and implementation of no-smoking policy in home, including e-cigarettes and posting of No-Smoking signs on entrance doors patient demonstrate compliance with safety recommendations. Define patient s appetite/hydration status and implement strategies to improve compliance with prescribed diet and/or healthy nutrition. Problem:Nutrition/Hyd ration Goal:Manage Nutrition/Hydration Completed reinforced patient on implementing strategies to comply with healthy nutrition and adequate hydration Opioids- educated on high risk medication Problem:High Risk Medications Goal:Patient/caregive r will teach back high risk medication side effect and precaution education Completed patient educated on taking medication(s) as prescribed by provider. Do not stop medication or alter doses without speaking with your provider. Discuss medication effectiveness or side effect concerns with your provider and home care team. Only take opioids as prescribed, do not share your medications, and take proper precautions in storing and properly disposing of opioids once no longer needed. Possible side effects of opioid medication including sedation, decreased rate of breathing, and constipation. Report over sedation to prescribing provider and practice deep breathing techniques every hour while awake. Prevent constipation by increasing water and fiber intake, increasing activity as tolerated, and use stool softener(s) as prescribed. Hypoglycemic (including insulin)- educated on high risk medication Problem:High Risk Medications Goal:Patient/caregive r will teach back high risk medication side effect and precaution education Completed patient educated on taking medication(s) as prescribed by provider. Do not stop medication or skip/alter doses without speaking with your provider. Discuss medication effectiveness or side effect concerns with your provider and home care team. Check blood sugars and keep log as ordered by provider. Monitor for side effects of hypoglycemia such as increased weakness or shaking, moist skin, sweating, fast heartbeat, dizziness, sudden hunger, confusion, pale skin, numbness in mouth or tongue, irritability, nervousness, unsteadiness, nightmares, bad dreams, and restless sleep. Checking your blood sugar routinely and eating a consistent diabetic diet can help regulate blood sugars and reduce side effects. Antiplatelet- educated on high risk medication Problem:High Risk Medications Goal:Patient/caregive r will teach back high risk medication side effect and precaution education Completed patient educated on taking medication(s) as prescribed by provider. Do not stop medication or alter doses without speaking with your provider. Discuss medication effectiveness or side effect concerns with your provider and home care team. Discuss all medications you are taking, even hwyv-jwu-rciielg medicines, with your provider and pharmacist since many drugs can interact with antiplatelet medications. If you forget to take a dose, DO NOT take a double dose. Take the missed dose as soon as possible on the same day. DO NOT take a double dose the next day to make up for the missed dose. Watch for signs of abnormal or excessive bleeding and bruising (refer to Bleeding Precautions education). Call your health care provider right away if you suspect something is wrong. Antibiotic- educated on high risk medication Problem:High Risk Medications Goal:Patient/caregive r will teach back high risk medication side effect and precaution education Completed patient educated on taking medication(s) as prescribed by provider. Do not stop medication or alter doses without speaking with your provider. Discuss medication effectiveness or side effect concerns with your provider and home care team. Take the full dispensed amount even if you start feeling better, as bacteria can become resistant to antibiotic treatment if you do not finish your prescription. Common side effects are upset stomach and diarrhea. Take your antibiotics with food unless otherwise indicated to help with indigestion. Taking an fsuw-lav-zavmudf probiotic or eating yogurt with live and active cultures three times a day can help prevent antibiotic-associated diarrhea. Call your provider immediately if you develop rashes or hives as this could be a delayed allergic reaction. Seek emergency treatment if you develop severe allergic reaction symptoms such as mouth or tongue swelling. Instruct on ongoing discharge plan Problem:Discharge Goal:Manage discharge planning Completed Ongoing Discharge plan: Discharge plan discussed with patient including frequency and duration for home SN and plan for transition to: caregiver assistance. Determine patient's Advance Directive Status Description: Patient does not have advance directives. Patient/Caregiver declined Advance Directive information. Problem:Advance Directives Goal:Patient/caregive r will make healthcare providers aware of and any changes to Advance Directives throughout certification period Completed Discussed Advance Directives with Patient and/or Caregiver. Referred patient to Home Care handbook for further information on Healthcare DPOA & Living Will. Assess and instruct on measures to reduce edema Problem:SN Edema Goal:Patient will have improved edema management Completed patient instructed on elevation, compression, diet, medication compliance and benefits of activity. Wound Care: Perform wound care (1) Description: Wound Care Order: Wound location: perianal Wound type (etiology): abcess Order: Lightly pack perineal wound with Io doform, cover with gauze and ABD. Wash wound with soap and water or wound cleanser with each dressing change Frequency: daily Wound care to be completed by caregiver except for scheduled SN wound care visits. Measure wound/incision at least weekly. Okay to substitute comparable products from home care formulary. Problem:SN Integumentary/Wounds Goal:Patient/Caregive r will have improved healing and be free of signs and symptoms of complications Completed Completed by SN. Patient did tolerate well. Instruct patient/caregiver healing process and management measures to promote healing and avoid complications Problem:SN Integumentary/Wounds Goal:Patient/Caregive r will have improved healing and be free of signs and symptoms of complications Completed patient instructed on the following: healing process, signs and symptoms of infection, importance of good nutrition, importance of managing blood sugars and when to report symptoms. Instruct Patient/Caregiver on wound/incision care procedure as ordered by physician Problem:SN Integumentary/Wounds Goal:Patient/Caregive r will have improved healing and be free of signs and symptoms of complications Completed patient instructed on wound care as ordered by Physician. Instruct on diabetes disease process and management of chronic condition Description: Patient has needs for education of diabetes. Problem:SN Diabetes Goal:Improved management of diabetes Completed patient assessed and reinforced on diabetes disease process, how food and insulin affect blood sugar, diet education, how to carb count and recogonizing s/s of hypoglycemia and hyperglycemia as found in the diabetes self-care booklets. Instruct on cardiovascular disease process and management of condition Description: Patient has following cardiac diagnosis(es): CAD. Problem:SN Cardiovascular Condition Goal:Improved management of cardiovascular disease Completed patient instructed on cardiac disease process, self monitoring & symptom reporting and Cardiac Diet. Instruct and educate on knowledge deficits Problem:SN Learning Assessment Goal:Demonstrate understanding of education Completed patient verbalize and/or demonstrate understanding of nursing education completed today. Education methods include: verbal cues. Further education required to improve knowledge and compliance with diabetic care management, fall prevention/home safety strategies and incision/wound care management. Maintenance COPD Description: Reinforce Acute and Sub-acute management education. Instruct on review zone sheet, nutrition in relation to COPD management, energy conservation, pacing activities, independence in ADLs vs what caregiver should be helping with, home exercise, additional COPD resources available like chronic care clinics as found in the COPD binder. Problem:SN COPD Goal:Improved management of COPD Completed Reinforced Acute and Sub-acute management education. patient reinforced on zone sheet, nutrition in relation to COPD management and energy conservation pacing activities, Romeo in ADLs vs what caregiver should be helping with and home exercise as found in the COPD binder. Sub-acute COPD Description: Reinforce Acute COPD management education. Instruct on zone sheet, methods to reduce infection risks, anxiety management including relaxation techniques, importance of sleep, stress reduction, and coping strategies for living with COPD as found in the COPD binder. Problem:SN COPD Goal:Improved management of COPD Completed Reinforced Acute COPD management education. patient reinforced on zone sheet, methods to reduce infection risks and coping strategies for living with COPD as found in the COPD binder. Acute COPD Description: Instruct on defintion of COPD, signs and symptoms of COPD exacerbation, use of zone sheet, use of MDIs, difference between rescue vs maintenance inhalers, use of nebulizer, smoking cessation, breathing management including pursed lip breathing, diaphragmatic breathing, positioning to reduce SOB, controlled coughing, use of incentive spirometer, and use of acapela as found in the COPD binder. Problem:SN COPD Goal:Improved management of COPD Completed patient reinforced on defintion of COPD, signs and symptoms of COPD exacerbation, use of zone sheet, use of MDIs and breathing management: pursed lip breathing, diaphragmatic breathing and positioning to reduce SOB as found in the COPD binder. [facility] Visit Details Visit Type -SN ROUTINE Discipline -Half-Way Problems Problem Description Start Date Status Goals Interve ntions Medication Education Disciplines: Skilled Services 08/20/2022 Active 1 goal linked to scheduled/documen pawan intervention 1 goal intervention scheduled/document ed in this visit Mental Health Disciplines: Skilled Services 08/20/2022 Active 1 goal linked to scheduled/documen pawan intervention 1 goal intervention scheduled/document ed in this visit Sepsis Disciplines: Skilled Services 08/20/2022 Active 1 goal linked to scheduled/documen pawan intervention 1 goal intervention scheduled/document ed in this visit Declined Referral Disciplines: Skilled Services 08/20/2022 Active 1 goal linked to scheduled/documen pawan intervention 1 goal intervention scheduled/document ed in this visit Risk for skin breakdown Disciplines: Skilled Services 08/20/2022 Active 1 goal linked to scheduled/documen pawan intervention 1 goal intervention scheduled/document ed in this visit Physician Specific Parameters Disciplines: Skilled Services 08/20/2022 Active 1 goal linked to scheduled/documen pawan intervention 1 goal intervention scheduled/document ed in this visit Risk for Falls Disciplines: Skilled Services 08/20/2022 Active 1 goal linked to scheduled/documen pawan intervention 1 goal intervention scheduled/document ed in this visit Pain Disciplines: Skilled Services 08/20/2022 Active 1 goal linked to scheduled/documen pawan intervention 1 goal intervention scheduled/document ed in this visit Diabetic Foot Care Disciplines: Skilled Services 08/20/2022 Active 1 goal linked to scheduled/documen pawan intervention 1 goal intervention scheduled/document ed in this visit Oxygen Disciplines: Skilled Services 08/20/2022 Active 1 goal linked to scheduled/documen pawan intervention 1 goal intervention scheduled/document ed in this visit Nutrition/Hydration Disciplines: Skilled Services 08/20/2022 Active 1 goal linked to scheduled/documen pawan intervention 1 goal intervention scheduled/document ed in this visit High Risk Medications Disciplines: Skilled Services 08/20/2022 Active 1 goal linked to scheduled/documen pawan intervention 4 goal interventions scheduled/document ed in this visit Discharge Disciplines: Skilled Services 08/20/2022 Active 1 goal linked to scheduled/documen pawan intervention 1 goal intervention scheduled/document ed in this visit Advance Directives Disciplines: Skilled Services 08/20/2022 Active 1 goal linked to scheduled/documen pawan intervention 1 goal intervention scheduled/document ed in this visit SN Edema Disciplines: SN 08/20/2022 Active 1 goal linked to scheduled/documen pawan intervention 1 goal intervention scheduled/document ed in this visit SN Integumentary/Wound s Disciplines: SN 08/20/2022 Active 1 goal linked to scheduled/documen pawan intervention 3 goal interventions scheduled/document ed in this visit SN Diabetes Disciplines: SN 08/20/2022 Active 1 goal linked to scheduled/documen pawan intervention 1 goal intervention scheduled/document ed in this visit SN Cardiovascular Condition Disciplines: SN 08/20/2022 Active 1 goal linked to scheduled/documen pawan intervention 1 goal intervention scheduled/document ed in this visit SN Learning Assessment Disciplines: SN 08/20/2022 Active 1 goal linked to scheduled/documen pawan intervention 1 goal intervention scheduled/document ed in this visit SN COPD Disciplines: SN 09/22/2022 Active 1 goal linked to scheduled/documen pawan intervention 3 goal interventions scheduled/document ed in this visit Goals Goal Associated Problem Outcome Goal Met? Visit Notes Patient/caregiver will demonstrate ability to obtain, store, identify and administer ordered medications, keep accurate medication list in home, and adhere to medication schedule Description: Patient/caregiver will demonstrate ability to obtain, store, identify and administer ordered medications, keep accurate medication list in home, and adhere to medication schedule by 10/18/22. Medication Education No Improved management of mental health condition(s) Description: Patient/caregiver will teach back mental health symptom identification and management techniques by 10/18/22. Mental Health No Patient/caregiver will be able to identify and report symptoms of sepsis Description: Patient/caregiver will be able to identify signs/symptoms of sepsis infection and will verbalize actions to take if suspected by 10/18/22. Sepsis No Patient has declined referred services Declined Referral No Manage risk for skin breakdown Description: Patient/caregiver will verbalize and demonstrate understanding of the risks and measures to be taken to monitor and prevent skin breakdown by 10/18/22. Risk for skin breakdown No Patient to maintain parameters within physician-specified ranges throughout certification period Physician Specific Parameters No Manage Risk for falls Description: Patient/caregiver will verbalize knowledge of individualized fall prevention strategies by 10/18/22. Risk for Falls No Manage Pain Description: Patient/caregiver will verbalize knowledge and understanding of appropriate techniques to control pain, including pain medication and non-pharmacological techniques. Patient will verbalize or demonstrate an acceptable level of pain as evidenced by a pain score of 0-3/10 and improvement in ability to perform activities of daily living to be achieved by 10/18/22. Pain No Manage diabetic foot care Description: Patient/caregiver will demonstrate basic understanding of and compliance with diabetic self-care management as evidenced by verbalizing purpose of daily foot care and assessment by 10/18/22. Diabetic Foot Care No Manage oxygen Description: Patient/caregiver will use oxygen safely and effectively in home by verbalizing and demonstrating oxygen safety by 10/18/22. Oxygen No Manage Nutrition/Hydration Description: Patient/caregiver will verbalize/demonstrate knowledge of prescribed diet and/or healthy nutrition to be achieved by 10/18/22. Nutrition/Hydration No Patient/caregiver will teach back high risk medication side effect and precaution education High Risk Medications No Manage discharge planning Description: Patient/caregiver will verbalize understanding of ongoing discharge plan provided related to disease management, arrangements for outpatient and/or community services, obtaining medications, supplies, and DME, as needed throughout certification period. Discharge No Patient/caregiver will make healthcare providers aware of and any changes to Advance Directives throughout certification period Advance Directives No Patient will have improved edema management Description: Patient/caregiver will demonstrate an understanding of edema management strategies as evidenced by resolution or stabilization of edema by 09/20/22. SN Edema No Patient/Caregiver will have improved healing and be free of signs and symptoms of complications Description: Patient/caregiver will verbalize management strategies to promote wound healing & prevent complications as evidenced by improved healing & no complications by 10/18/22. SN Integumentary/Wounds No Improved management of diabetes Description: Improve diabetic management as evidenced by patient/caregiver able to teach back diabetic management strategies by 10/18/22. SN Diabetes No Improved management of cardiovascular disease Description: Improve patient/caregiver management of cardiac disease as evidenced by patient/caregiver ability to teach back cardiac management strategies by 09/20/22. SN Cardiovascular Condition No Demonstrate understanding of education Description: Patient and/or caregiver will verbalize understanding of educational instruction provided throughout certification period. SN Learning Assessment No Improved management of COPD Description: Improve COPD management as evidenced by decreased reports of dyspnea, medication compliance, and patient able to teach back strategies to manage condition. Goal to be achieved by 10-18-22 SN COPD No Interventions Intervention Associated Problem/Goal Status Variance Visit Notes Medication Education Description: Evaluate/instruct patient/caregiver on obtaining, storing, identifying and administering ordered medications as well as keeping accurate medication list in the home and adhereing to medication schedule Problem:Medication Education Goal:Patient/caregive r will demonstrate ability to obtain, store, identify and administer ordered medications, keep accurate medication list in home, and adhere to medication schedule Completed Patient instructed on importance of keeping accurate medication list in home, adhering to medication schedule and proper storage of medications. Instruct on depression symptoms and management Description: PHQ-2 score: below 3 PHQ-9 Score: none Problem:Mental Health Goal:Improved management of mental health condition(s) Completed Patient instructed on the following: signs of depression and when to report symptoms to physician, importance of medication adherence, record symptoms to assist with ongoing monitoring, coping skills & techniques, develop awareness of stressors, verbalize feelings, the importance of activity, goal planning and schedules , the benefits of adequate nutrition and hydration and seeking support from family/friends. Risk of Sepsis Description: Patient is at risk for sepsis. Monitor closely for s/s of sepsis. 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 A John score <= to 18 indicates risk for skin breakdown. Problem:Risk for skin breakdown Goal:Manage risk for skin breakdown Completed patient instructed on maintaining skin integrity including: The need for every 1-2 hour turns, position changes, and maintaining activity as tolerated, Reducing risk of friction and shear, including use of draw sheet as appropriate, Elevating and protecting heels, Routine skin care and Notifying [facility] clinician of changes to skin integrity Evaluation for pressure reduction surfaces completed for bed and chair . SPO2 Description: Notify if pulse ox is <92% at rest. Problem:Physician Specific Parameters Goal:Patient to maintain parameters within physician-specified ranges throughout certification period Completed Instruct on individual fall risk factors and strategies to prevent falls and injuries caused by falls. Problem:Risk for Falls Goal:Manage Risk for falls Completed SN: Patient instructed on Eliminating Environmental Hazards: Keep pathways clear, Keep pets out of pathways, Keep rooms and walkways well lit, Wear supportive shoes or non-skid socks and Keep frequently used items within reach Instruct on pain and instruct on strategies to control pain Problem:Pain Goal:Manage Pain Completed patient instructed on techniques to control pain including Pharmacological measures and Non-Pharmacological measures; rest, positioning/elevation, mobility/therapeutic exercise and distraction. Monitor lower extremities for skin lesions and educate on proper foot care Problem:Diabetic Foot Care Goal:Manage diabetic foot care Completed patient instructed on diabetic foot care including daily skin inspection, wearing proper footwear/avoiding going barefoot, wash/dry feet thoroughly, applying moisturizer, avoiding between toes and toenail care. Instruct on fire safety and safe and effective use of oxygen in the home Problem:Oxygen Goal:Manage oxygen Completed patient instructed on: findings of safety risk assessment, causes of fires, firerisks for neighboring residences and buildings, precautions that can prevent fire-related injuries, oxygen safety as outlined in Home Care Patient Handbook and recommendations for specific safety risks identified in the home: maintenance of working smoke detectors and changing batteries, establishment of fire escape plan, telephone accessibility and implementation of no-smoking policy in home, including e-cigarettes and posting of No-Smoking signs on entrance doors patient demonstrate compliance with safety recommendations. Define patient s appetite/hydration status and implement strategies to improve compliance with prescribed diet and/or healthy nutrition. Problem:Nutrition/Hyd ration Goal:Manage Nutrition/Hydration Completed reinforced patient on implementing strategies to comply with healthy nutrition and adequate hydration Opioids- educated on high risk medication Problem:High Risk Medications Goal:Patient/caregive r will teach back high risk medication side effect and precaution education Completed patient educated on taking medication(s) as prescribed by provider. Do not stop medication or alter doses without speaking with your provider. Discuss medication effectiveness or side effect concerns with your provider and home care team. Only take opioids as prescribed, do not share your medications, and take proper precautions in storing and properly disposing of opioids once no longer needed. Possible side effects of opioid medication including sedation, decreased rate of breathing, and constipation. Report over sedation to prescribing provider and practice deep breathing techniques every hour while awake. Prevent constipation by increasing water and fiber intake, increasing activity as tolerated, and use stool softener(s) as prescribed. Hypoglycemic (including insulin)- educated on high risk medication Problem:High Risk Medications Goal:Patient/caregive r will teach back high risk medication side effect and precaution education Completed patient educated on taking medication(s) as prescribed by provider. Do not stop medication or skip/alter doses without speaking with your provider. Discuss medication effectiveness or side effect concerns with your provider and home care team. Check blood sugars and keep log as ordered by provider. Monitor for side effects of hypoglycemia such as increased weakness or shaking, moist skin, sweating, fast heartbeat, dizziness, sudden hunger, confusion, pale skin, numbness in mouth or tongue, irritability, nervousness, unsteadiness, nightmares, bad dreams, and restless sleep. Checking your blood sugar routinely and eating a consistent diabetic diet can help regulate blood sugars and reduce side effects. Antiplatelet- educated on high risk medication Problem:High Risk Medications Goal:Patient/caregive r will teach back high risk medication side effect and precaution education Completed patient educated on taking medication(s) as prescribed by provider. Do not stop medication or alter doses without speaking with your provider. Discuss medication effectiveness or side effect concerns with your provider and home care team. Discuss all medications you are taking, even [id number] medicines, with your provider and pharmacist since many drugs can interact with antiplatelet medications. If you forget to take a dose, DO NOT take a double dose. Take the missed dose as soon as possible on the same day. DO NOT take a double dose the next day to make up for the missed dose. Watch for signs of abnormal or excessive bleeding and bruising (refer to Bleeding Precautions education). Call your health care provider right away if you suspect something is wrong. Antibiotic- educated on high risk medication Problem:High Risk Medications Goal:Patient/caregive r will teach back high risk medication side effect and precaution education Completed patient educated on taking medication(s) as prescribed by provider. Do not stop medication or alter doses without speaking with your provider. Discuss medication effectiveness or side effect concerns with your provider and home care team. Take the full dispensed amount even if you start feeling better, as bacteria can become resistant to antibiotic treatment if you do not finish your prescription. Common side effects are upset stomach and diarrhea. Take your antibiotics with food unless otherwise indicated to help with indigestion. Taking an [id number] probiotic or eating yogurt with live and active cultures three times a day can help prevent antibiotic-associated diarrhea. Call your provider immediately if you develop rashes or hives as this could be a delayed allergic reaction. Seek emergency treatment if you develop severe allergic reaction symptoms such as mouth or tongue swelling. Instruct on ongoing discharge plan Problem:Discharge Goal:Manage discharge planning Completed Ongoing Discharge plan: Discharge plan discussed with patient including frequency and duration for home SN and plan for transition to: caregiver assistance. Determine patient's Advance Directive Status Description: Patient does not have advance directives. Patient/Caregiver declined Advance Directive information. Problem:Advance Directives Goal:Patient/caregive r will make healthcare providers aware of and any changes to Advance Directives throughout certification period Completed Discussed Advance Directives with Patient and/or Caregiver. Referred patient to Home Care handbook for further information on Healthcare DPOA & Living Will. Assess and instruct on measures to reduce edema Problem:SN Edema Goal:Patient will have improved edema management Completed patient instructed on elevation, compression, diet, medication compliance and benefits of activity. Wound Care: Perform wound care (1) Description: Wound Care Order: Wound location: perianal Wound type (etiology): abcess Order: Lightly pack perineal wound with Io doform, cover with gauze and ABD. Wash wound with soap and water or wound cleanser with each dressing change Frequency: daily Wound care to be completed by caregiver except for scheduled SN wound care visits. Measure wound/incision at least weekly. Okay to substitute comparable products from home care formulary. Problem:SN Integumentary/Wounds Goal:Patient/Caregive r will have improved healing and be free of signs and symptoms of complications Completed Completed by SN. Patient did tolerate well. Instruct patient/caregiver healing process and management measures to promote healing and avoid complications Problem:SN Integumentary/Wounds Goal:Patient/Caregive r will have improved healing and be free of signs and symptoms of complications Completed patient instructed on the following: healing process, signs and symptoms of infection, importance of good nutrition, importance of managing blood sugars and when to report symptoms. Instruct Patient/Caregiver on wound/incision care procedure as ordered by physician Problem:SN Integumentary/Wounds Goal:Patient/Caregive r will have improved healing and be free of signs and symptoms of complications Completed patient instructed on wound care as ordered by Physician. Instruct on diabetes disease process and management of chronic condition Description: Patient has needs for education of diabetes. Problem:SN Diabetes Goal:Improved management of diabetes Completed patient assessed and reinforced on diabetes disease process, how food and insulin affect blood sugar, diet education, how to carb count, recogonizing s/s of hypoglycemia and hyperglycemia and managing sick days as found in the diabetes self-care booklets. Instruct on cardiovascular disease process and management of condition Description: Patient has following cardiac diagnosis(es): CAD. Problem:SN Cardiovascular Condition Goal:Improved management of cardiovascular disease Completed patient instructed on cardiac disease process, self monitoring & symptom reporting and Cardiac Diet. Instruct and educate on knowledge deficits Problem:SN Learning Assessment Goal:Demonstrate understanding of education Completed patient verbalize and/or demonstrate understanding of nursing education completed today. Education methods include: verbal cues and teach back. Further education required to improve knowledge and compliance with cardiac disease management, diabetic care management, fall prevention/home safety strategies, incision/wound care management, integumentary care management, medication management and pulmonary disease management. Maintenance COPD Description: Reinforce Acute and Sub-acute management education. Instruct on review zone sheet, nutrition in relation to COPD management, energy conservation, pacing activities, independence in ADLs vs what caregiver should be helping with, home exercise, additional COPD resources available like chronic care clinics as found in the COPD binder. Problem:SN COPD Goal:Improved management of COPD Completed Reinforced Acute and Sub-acute management education. patient reinforced on zone sheet, nutrition in relation to COPD management and energy conservation pacing activities and Romeo in ADLs vs what caregiver should be helping with as found in the COPD binder. Sub-acute COPD Description: Reinforce Acute COPD management education. Instruct on zone sheet, methods to reduce infection risks, anxiety management including relaxation techniques, importance of sleep, stress reduction, and coping strategies for living with COPD as found in the COPD binder. Problem:SN COPD Goal:Improved management of COPD Completed Reinforced Acute COPD management education. patient reinforced on zone sheet, methods to reduce infection risks, anxiety management including: relaxation techniques, importance of sleep and stress reduction and coping strategies for living with COPD as found in the COPD binder. Acute COPD Description: Instruct on defintion of COPD, signs and symptoms of COPD exacerbation, use of zone sheet, use of MDIs, difference between rescue vs maintenance inhalers, use of nebulizer, smoking cessation, breathing management including pursed lip breathing, diaphragmatic breathing, positioning to reduce SOB, controlled coughing, use of incentive spirometer, and use of acapela as found in the COPD binder. Problem:SN COPD Goal:Improved management of COPD Completed patient reinforced on defintion of COPD, signs and symptoms of COPD exacerbation, use of zone sheet, use of MDIs, difference between rescue vs maintenance inhalers and use of nebulizer as found in the COPD binder. documented in this encounter [facility]'s home Plan of care note* Visit Details Visit Type -SN ROUTINE Discipline -Half-Way Problems Problem Description Start Date Status Goals Interve ntions Medication Education Disciplines: Skilled Services 08/20/2022 Active 1 goal linked to scheduled/docume nted intervention 1 goal intervention scheduled/documen pawan in this visit Mental Health Disciplines: Skilled Services 08/20/2022 Resolved on 10/06/2022 1 goal linked to scheduled/docume nted intervention 1 goal intervention scheduled/documen pawan in this visit Sepsis Disciplines: Skilled Services 08/20/2022 Active 1 goal linked to scheduled/docume nted intervention 1 goal intervention scheduled/documen pawan in this visit Declined Referral Disciplines: Skilled Services 08/20/2022 Resolved on 10/06/2022 1 goal linked to scheduled/docume nted intervention Risk for skin breakdown Disciplines: Skilled Services 08/20/2022 Resolved on 10/06/2022 1 goal linked to scheduled/docume nted intervention 1 goal intervention scheduled/documen pawan in this visit Physician Specific Parameters Disciplines: Skilled Services 08/20/2022 Active 1 goal linked to scheduled/docume nted intervention 1 goal intervention scheduled/documen pawan in this visit Risk for Falls Disciplines: Skilled Services 08/20/2022 Active 1 goal linked to scheduled/docume nted intervention 1 goal intervention scheduled/documen pawan in this visit Pain Disciplines: Skilled Services 08/20/2022 Active 1 goal linked to scheduled/docume nted intervention 1 goal intervention scheduled/documen pawan in this visit Diabetic Foot Care Disciplines: Skilled Services 08/20/2022 Active 1 goal linked to scheduled/docume nted intervention 1 goal intervention scheduled/documen pawan in this visit Oxygen Disciplines: Skilled Services 08/20/2022 Active 1 goal linked to scheduled/docume nted intervention 1 goal intervention scheduled/documen pawan in this visit Nutrition/Hydration Disciplines: Skilled Services 08/20/2022 Active 1 goal linked to scheduled/docume nted intervention 1 goal intervention scheduled/documen pawan in this visit High Risk Medications Disciplines: Skilled Services 08/20/2022 Active 1 goal linked to scheduled/docume nted intervention 3 goal interventions scheduled/documen pawan in this visit Discharge Disciplines: Skilled Services 08/20/2022 Active 1 goal linked to scheduled/docume nted intervention 1 goal intervention scheduled/documen pawan in this visit SN Edema Disciplines: SN 08/20/2022 Active 1 goal linked to scheduled/docume nted intervention 1 goal intervention scheduled/documen pawan in this visit SN Integumentary/Wound s Disciplines: SN 08/20/2022 Active 1 goal linked to scheduled/docume nted intervention 3 goal interventions scheduled/documen pawan in this visit SN Diabetes Disciplines: SN 08/20/2022 Active 1 goal linked to scheduled/docume nted intervention 1 goal intervention scheduled/documen pawan in this visit SN Cardiovascular Condition Disciplines: SN 08/20/2022 Active 1 goal linked to scheduled/docume nted intervention 1 goal intervention scheduled/documen pawan in this visit SN Learning Assessment Disciplines: SN 08/20/2022 Active 1 goal linked to scheduled/docume nted intervention 1 goal intervention scheduled/documen pawan in this visit SN COPD Disciplines: SN 09/22/2022 Active 1 goal linked to scheduled/docume nted intervention 1 goal intervention scheduled/documen pawan in this visit Goals Goal Associated Problem Outcome Goal Met? Visit Notes Patient/caregiver will demonstrate ability to obtain, store, identify and administer ordered medications, keep accurate medication list in home, and adhere to medication schedule Description: Patient/caregiver will demonstrate ability to obtain, store, identify and administer ordered medications, keep accurate medication list in home, and adhere to medication schedule by 10/18/22. Medication Education In Progress No Improved management of mental health condition(s) Description: Patient/caregiver will teach back mental health symptom identification and management techniques by 10/18/22. Mental Health Completed Yes Patient/caregiver will be able to identify and report symptoms of sepsis Description: Patient/caregiver will be able to identify signs/symptoms of sepsis infection and will verbalize actions to take if suspected by 10/18/22. Sepsis In Progress No Patient has declined referred services Declined Referral Completed Yes Manage risk for skin breakdown Description: Patient/caregiver will verbalize and demonstrate understanding of the risks and measures to be taken to monitor and prevent skin breakdown by 10/18/22. Risk for skin breakdown Completed Yes Patient to maintain parameters within physician-specified ranges throughout certification period Physician Specific Parameters In Progress No Manage Risk for falls Description: Patient/caregiver will verbalize knowledge of individualized fall prevention strategies by 10/18/22. Risk for Falls In Progress No Manage Pain Description: Patient/caregiver will verbalize knowledge and understanding of appropriate techniques to control pain, including pain medication and non-pharmacological techniques. Patient will verbalize or demonstrate an acceptable level of pain as evidenced by a pain score of 0-3/10 and improvement in ability to perform activities of daily living to be achieved by 10/18/22. Pain In Progress No Manage diabetic foot care Description: Patient/caregiver will demonstrate basic understanding of and compliance with diabetic self-care management as evidenced by verbalizing purpose of daily foot care and assessment by 10/18/22. Diabetic Foot Care In Progress No Manage oxygen Description: Patient/caregiver will use oxygen safely and effectively in home by verbalizing and demonstrating oxygen safety by 10/18/22. Oxygen In Progress No Manage Nutrition/Hydration Description: Patient/caregiver will verbalize/demonstrate knowledge of prescribed diet and/or healthy nutrition to be achieved by 10/18/22. Nutrition/Hydration In Progress No Patient/caregiver will teach back high risk medication side effect and precaution education High Risk Medications In Progress No Manage discharge planning Description: Patient/caregiver will verbalize understanding of ongoing discharge plan provided related to disease management, arrangements for outpatient and/or community services, obtaining medications, supplies, and DME, as needed throughout certification period. Discharge In Progress No Patient will have improved edema management Description: Patient/caregiver will demonstrate an understanding of edema management strategies as evidenced by resolution or stabilization of edema by 09/20/22. SN Edema In Progress No Patient/Caregiver will have improved healing and be free of signs and symptoms of complications Description: Patient/caregiver will verbalize management strategies to promote wound healing & prevent complications as evidenced by improved healing & no complications by 10/18/22. SN Integumentary/Wounds In Progress No Improved management of diabetes Description: Improve diabetic management as evidenced by patient/caregiver able to teach back diabetic management strategies by 10/18/22. SN Diabetes In Progress No Improved management of cardiovascular disease Description: Improve patient/caregiver management of cardiac disease as evidenced by patient/caregiver ability to teach back cardiac management strategies by 09/20/22. SN Cardiovascular Condition In Progress No Demonstrate understanding of education Description: Patient and/or caregiver will verbalize understanding of educational instruction provided throughout certification period. SN Learning Assessment In Progress No Improved management of COPD Description: Improve COPD management as evidenced by decreased reports of dyspnea, medication compliance, and patient able to teach back strategies to manage condition. Goal to be achieved by 10-18-22 SN COPD In Progress No Interventions Intervention Associated Problem/Goal Status Variance Visit Notes Medication Education Description: Evaluate/instruct patient/caregiver on obtaining, storing, identifying and administering ordered medications as well as keeping accurate medication list in the home and adhereing to medication schedule Problem:Medication Education Goal:Patient/caregive r will demonstrate ability to obtain, store, identify and administer ordered medications, keep accurate medication list in home, and adhere to medication schedule Completed Patient instructed on adhering to medication schedule. Instruct on depression symptoms and management Description: PHQ-2 score: below 3 PHQ-9 Score: none Problem:Mental Health Goal:Improved management of mental health condition(s) Completed Patient instructed on the following: coping skills & techniques. Risk of Sepsis Description: Patient is at risk for sepsis. Monitor closely for s/s of sepsis. Problem:Sepsis Goal:Patient/caregive r will be able to identify and report symptoms of sepsis Completed Instruct on the risks and measures to be taken to prevent skin breakdown Description: Patient's John Score is: at risk. A John score <= to 18 indicates risk for skin breakdown. Problem:Risk for skin breakdown Goal:Manage risk for skin breakdown Completed patient instructed on maintaining skin integrity including: Routine skin care SPO2 Description: Notify if pulse ox is <92% at rest. Problem:Physician Specific Parameters Goal:Patient to maintain parameters within physician-specified ranges throughout certification period Completed Instruct on individual fall risk factors and strategies to prevent falls and injuries caused by falls. Problem:Risk for Falls Goal:Manage Risk for falls Completed SN: Patient instructed on Managing Impaired Functional Mobility: Caregiver to provide assist with: Steps Instruct on pain and instruct on strategies to control pain Problem:Pain Goal:Manage Pain Completed patient instructed on techniques to control pain including Non-Pharmacological measures; breathing/relaxation. Monitor lower extremities for skin lesions and educate on proper foot care Problem:Diabetic Foot Care Goal:Manage diabetic foot care Completed patient instructed on diabetic foot care including daily skin inspection and wearing proper footwear/avoiding going barefoot. Instruct on fire safety and safe and effective use of oxygen in the home Problem:Oxygen Goal:Manage oxygen Completed patient instructed on: findings of safety risk assessment, causes of fires, firerisks for neighboring residences and buildings, precautions that can prevent fire-related injuries, oxygen safety as outlined in Home Care Patient Handbook and recommendations for specific safety risks identified in the home: proper placement of oxygen concentrator in home at least 10 feet from open flames or ignition sources patient demonstrate compliance with safety recommendations. Define patient s appetite/hydration status and implement strategies to improve compliance with prescribed diet and/or healthy nutrition. Problem:Nutrition/Hyd ration Goal:Manage Nutrition/Hydration Completed reinforced patient on implementing strategies to comply with prescribed diet, healthy nutrition and adequate hydration Hypoglycemic (including insulin)- educated on high risk medication Problem:High Risk Medications Goal:Patient/caregive r will teach back high risk medication side effect and precaution education Completed patient educated on taking medication(s) as prescribed by provider. Do not stop medication or skip/alter doses without speaking with your provider. Discuss medication effectiveness or side effect concerns with your provider and home care team. Check blood sugars and keep log as ordered by provider. Monitor for side effects of hypoglycemia such as increased weakness or shaking, moist skin, sweating, fast heartbeat, dizziness, sudden hunger, confusion, pale skin, numbness in mouth or tongue, irritability, nervousness, unsteadiness, nightmares, bad dreams, and restless sleep. Checking your blood sugar routinely and eating a consistent diabetic diet can help regulate blood sugars and reduce side effects. Antiplatelet- educated on high risk medication Problem:High Risk Medications Goal:Patient/caregive r will teach back high risk medication side effect and precaution education Completed patient educated on taking medication(s) as prescribed by provider. Do not stop medication or alter doses without speaking with your provider. Discuss medication effectiveness or side effect concerns with your provider and home care team. Discuss all medications you are taking, even lhre-hrk-igacvyq medicines, with your provider and pharmacist since many drugs can interact with antiplatelet medications. If you forget to take a dose, DO NOT take a double dose. Take the missed dose as soon as possible on the same day. DO NOT take a double dose the next day to make up for the missed dose. Watch for signs of abnormal or excessive bleeding and bruising (refer to Bleeding Precautions education). Call your health care provider right away if you suspect something is wrong. Antibiotic- educated on high risk medication Problem:High Risk Medications Goal:Patient/caregive r will teach back high risk medication side effect and precaution education Completed patient educated on taking medication(s) as prescribed by provider. Do not stop medication or alter doses without speaking with your provider. Discuss medication effectiveness or side effect concerns with your provider and home care team. Take the full dispensed amount even if you start feeling better, as bacteria can become resistant to antibiotic treatment if you do not finish your prescription. Common side effects are upset stomach and diarrhea. Take your antibiotics with food unless otherwise indicated to help with indigestion. Taking an vefe-iry-ktsthuh probiotic or eating yogurt with live and active cultures three times a day can help prevent antibiotic-associated diarrhea. Call your provider immediately if you develop rashes or hives as this could be a delayed allergic reaction. Seek emergency treatment if you develop severe allergic reaction symptoms such as mouth or tongue swelling. Instruct on ongoing discharge plan Problem:Discharge Goal:Manage discharge planning Completed Ongoing Discharge plan: Discharge plan discussed with patient including frequency and duration for home SN and plan for transition to: live independently at home without ongoing services. Assess and instruct on measures to reduce edema Problem:SN Edema Goal:Patient will have improved edema management Completed patient instructed on elevation, compression, medication compliance and benefits of activity. Wound Care: Perform wound care (1) Description: Wound Care Order: Wound location: perianal Wound type (etiology): abcess Order: Lightly pack perineal wound with Io doform, cover with gauze and ABD. Wash wound with soap and water or wound cleanser with each dressing change Frequency: daily Wound care to be completed by caregiver except for scheduled SN wound care visits. Measure wound/incision at least weekly. Okay to substitute comparable products from home care formulary. Problem:SN Integumentary/Wounds Goal:Patient/Caregive r will have improved healing and be free of signs and symptoms of complications Completed Completed by SN. Patient did tolerate well. Instruct patient/caregiver healing process and management measures to promote healing and avoid complications Problem:SN Integumentary/Wounds Goal:Patient/Caregive r will have improved healing and be free of signs and symptoms of complications Completed patient instructed on the following: healing process. Instruct Patient/Caregiver on wound/incision care procedure as ordered by physician Problem:SN Integumentary/Wounds Goal:Patient/Caregive r will have improved healing and be free of signs and symptoms of complications Completed patient instructed on wound care as ordered by Physician. Instruct on diabetes disease process and management of chronic condition Description: Patient has needs for education of diabetes. Problem:SN Diabetes Goal:Improved management of diabetes Completed patient assessed and reinforced on diet education as found in the diabetes self-care booklets. Instruct on cardiovascular disease process and management of condition Description: Patient has following cardiac diagnosis(es): CAD. Problem:SN Cardiovascular Condition Goal:Improved management of cardiovascular disease Completed patient instructed on self monitoring & symptom reporting. Instruct and educate on knowledge deficits Problem:SN Learning Assessment Goal:Demonstrate understanding of education Completed patient verbalize and/or demonstrate understanding of nursing education completed today. Education methods include: verbal cues. Further education required to improve knowledge and compliance with diabetic care management, fall prevention/home safety strategies, hematological care management, incision/wound care management, integumentary care management, medication management, nutrition, oxygen safety, pain management and pulmonary disease management. Maintenance COPD Description: Reinforce Acute and Sub-acute management education. Instruct on review zone sheet, nutrition in relation to COPD management, energy conservation, pacing activities, independence in ADLs vs what caregiver should be helping with, home exercise, additional COPD resources available like chronic care clinics as found in the COPD binder. Problem:SN COPD Goal:Improved management of COPD Completed Reinforced Acute and Sub-acute management education. patient reinforced on energy conservation pacing activities as found in the COPD binder. documented in this encounter [facility]'s home Plan of care note* Visit Details Visit Type -SN ROUTINE Discipline -Half-Way Problems Problem Description Start Date Status Goals Interve ntions Medication Education Disciplines: Skilled Services 08/20/2022 Active 1 goal linked to scheduled/documen pawan intervention 1 goal intervention scheduled/document ed in this visit Sepsis Disciplines: Skilled Services 08/20/2022 Active 1 goal linked to scheduled/documen pawan intervention 1 goal intervention scheduled/document ed in this visit Physician Specific Parameters Disciplines: Skilled Services 08/20/2022 Active 1 goal linked to scheduled/documen pawan intervention 1 goal intervention scheduled/document ed in this visit Risk for Falls Disciplines: Skilled Services 08/20/2022 Active 1 goal linked to scheduled/documen pawan intervention 1 goal intervention scheduled/document ed in this visit Pain Disciplines: Skilled Services 08/20/2022 Active 1 goal linked to scheduled/documen pawan intervention 1 goal intervention scheduled/document ed in this visit Diabetic Foot Care Disciplines: Skilled Services 08/20/2022 Active 1 goal linked to scheduled/documen pawan intervention 1 goal intervention scheduled/document ed in this visit Oxygen Disciplines: Skilled Services 08/20/2022 Active 1 goal linked to scheduled/documen pawan intervention 1 goal intervention scheduled/document ed in this visit Nutrition/Hydration Disciplines: Skilled Services 08/20/2022 Active 1 goal linked to scheduled/documen pawan intervention 1 goal intervention scheduled/document ed in this visit High Risk Medications Disciplines: Skilled Services 08/20/2022 Active 1 goal linked to scheduled/documen pawan intervention 4 goal interventions scheduled/document ed in this visit Discharge Disciplines: Skilled Services 08/20/2022 Active 1 goal linked to scheduled/documen pawan intervention 1 goal intervention scheduled/document ed in this visit Advance Directives Disciplines: Skilled Services 08/20/2022 Active 1 goal linked to scheduled/documen pawan intervention 1 goal intervention scheduled/document ed in this visit SN Edema Disciplines: SN 08/20/2022 Active 1 goal linked to scheduled/documen pawan intervention 1 goal intervention scheduled/document ed in this visit SN Integumentary/Wound s Disciplines: SN 08/20/2022 Active 1 goal linked to scheduled/documen pawan intervention 3 goal interventions scheduled/document ed in this visit SN Diabetes Disciplines: SN 08/20/2022 Active 1 goal linked to scheduled/documen pawan intervention 1 goal intervention scheduled/document ed in this visit SN Cardiovascular Condition Disciplines: SN 08/20/2022 Active 1 goal linked to scheduled/documen pawan intervention 1 goal intervention scheduled/document ed in this visit SN Learning Assessment Disciplines: SN 08/20/2022 Active 1 goal linked to scheduled/documen pawan intervention 1 goal intervention scheduled/document ed in this visit SN COPD Disciplines: 09/22/2022 Active 1 goal linked to scheduled/documen pawan intervention 3 goal interventions scheduled/document ed in this visit Goals Goal Associated Problem Outcome Goal Met? Visit Notes Patient/caregiver will demonstrate ability to obtain, store, identify and administer ordered medications, keep accurate medication list in home, and adhere to medication schedule Description: Patient/caregiver will demonstrate ability to obtain, store, identify and administer ordered medications, keep accurate medication list in home, and adhere to medication schedule by 10/18/22. Medication Education No Patient/caregiver will be able to identify and report symptoms of sepsis Description: Patient/caregiver will be able to identify signs/symptoms of sepsis infection and will verbalize actions to take if suspected by 10/18/22. Sepsis No Patient to maintain parameters within physician-specified ranges throughout certification period Physician Specific Parameters No Manage Risk for falls Description: Patient/caregiver will verbalize knowledge of individualized fall prevention strategies by 10/18/22. Risk for Falls No Manage Pain Description: Patient/caregiver will verbalize knowledge and understanding of appropriate techniques to control pain, including pain medication and non-pharmacological techniques. Patient will verbalize or demonstrate an acceptable level of pain as evidenced by a pain score of 0-3/10 and improvement in ability to perform activities of daily living to be achieved by 10/18/22. Pain No Manage diabetic foot care Description: Patient/caregiver will demonstrate basic understanding of and compliance with diabetic self-care management as evidenced by verbalizing purpose of daily foot care and assessment by 10/18/22. Diabetic Foot Care No Manage oxygen Description: Patient/caregiver will use oxygen safely and effectively in home by verbalizing and demonstrating oxygen safety by 10/18/22. Oxygen No Manage Nutrition/Hydration Description: Patient/caregiver will verbalize/demonstrate knowledge of prescribed diet and/or healthy nutrition to be achieved by 10/18/22. Nutrition/Hydration No Patient/caregiver will teach back high risk medication side effect and precaution education High Risk Medications No Manage discharge planning Description: Patient/caregiver will verbalize understanding of ongoing discharge plan provided related to disease management, arrangements for outpatient and/or community services, obtaining medications, supplies, and DME, as needed throughout certification period. Discharge No Patient/caregiver will make healthcare providers aware of and any changes to Advance Directives throughout certification period Advance Directives No Patient will have improved edema management Description: Patient/caregiver will demonstrate an understanding of edema management strategies as evidenced by resolution or stabilization of edema by 09/20/22. SN Edema No Patient/Caregiver will have improved healing and be free of signs and symptoms of complications Description: Patient/caregiver will verbalize management strategies to promote wound healing & prevent complications as evidenced by improved healing & no complications by 10/18/22. SN Integumentary/Wounds No Improved management of diabetes Description: Improve diabetic management as evidenced by patient/caregiver able to teach back diabetic management strategies by 10/18/22. SN Diabetes No Improved management of cardiovascular disease Description: Improve patient/caregiver management of cardiac disease as evidenced by patient/caregiver ability to teach back cardiac management strategies by 09/20/22. SN Cardiovascular Condition No Demonstrate understanding of education Description: Patient and/or caregiver will verbalize understanding of educational instruction provided throughout certification period. SN Learning Assessment No Improved management of COPD Description: Improve COPD management as evidenced by decreased reports of dyspnea, medication compliance, and patient able to teach back strategies to manage condition. Goal to be achieved by 10-18-22 SN COPD No Interventions Intervention Associated Problem/Goal Status Variance Visit Notes Medication Education Description: Evaluate/instruct patient/caregiver on obtaining, storing, identifying and administering ordered medications as well as keeping accurate medication list in the home and adhereing to medication schedule Problem:Medication Education Goal:Patient/caregive r will demonstrate ability to obtain, store, identify and administer ordered medications, keep accurate medication list in home, and adhere to medication schedule Completed Patient instructed on importance of keeping accurate medication list in home, adhering to medication schedule and proper storage of medications. Risk of Sepsis Description: Patient is at risk for sepsis. Monitor closely for s/s of sepsis. Problem:Sepsis Goal:Patient/caregive r will be able to identify and report symptoms of sepsis Completed SPO2 Description: Notify if pulse ox is <92% at rest. Problem:Physician Specific Parameters Goal:Patient to maintain parameters within physician-specified ranges throughout certification period Completed Instruct on individual fall risk factors and strategies to prevent falls and injuries caused by falls. Problem:Risk for Falls Goal:Manage Risk for falls Completed SN: Patient instructed on Eliminating Environmental Hazards: Keep pathways clear, Keep pets out of pathways, Keep rooms and walkways well lit, Wear supportive shoes or non-skid socks and Keep frequently used items within reach Instruct on pain and instruct on strategies to control pain Problem:Pain Goal:Manage Pain Completed patient instructed on techniques to control pain including Pharmacological measures and Non-Pharmacological measures; rest, positioning/elevation, mobility/therapeutic exercise, distraction and breathing/relaxation. Monitor lower extremities for skin lesions and educate on proper foot care Problem:Diabetic Foot Care Goal:Manage diabetic foot care Completed patient instructed on diabetic foot care including daily skin inspection, wearing proper footwear/avoiding going barefoot, wash/dry feet thoroughly, applying moisturizer, avoiding between toes and toenail care. Instruct on fire safety and safe and effective use of oxygen in the home Problem:Oxygen Goal:Manage oxygen Completed patient instructed on: findings of safety risk assessment, causes of fires, firerisks for neighboring residences and buildings, precautions that can prevent fire-related injuries, oxygen safety as outlined in Home Care Patient Handbook and recommendations for specific safety risks identified in the home: maintenance of working smoke detectors and changing batteries, establishment of fire escape plan, telephone accessibility and implementation of no-smoking policy in home, including e-cigarettes and posting of No-Smoking signs on entrance doors patient demonstrate compliance with safety recommendations. Define patient s appetite/hydration status and implement strategies to improve compliance with prescribed diet and/or healthy nutrition. Problem:Nutrition/Hyd ration Goal:Manage Nutrition/Hydration Completed reinforced patient on implementing strategies to comply with prescribed diet, healthy nutrition and adequate hydration Opioids- educated on high risk medication Problem:High Risk Medications Goal:Patient/caregive r will teach back high risk medication side effect and precaution education Completed patient educated on taking medication(s) as prescribed by provider. Do not stop medication or alter doses without speaking with your provider. Discuss medication effectiveness or side effect concerns with your provider and home care team. Only take opioids as prescribed, do not share your medications, and take proper precautions in storing and properly disposing of opioids once no longer needed. Possible side effects of opioid medication including sedation, decreased rate of breathing, and constipation. Report over sedation to prescribing provider and practice deep breathing techniques every hour while awake. Prevent constipation by increasing water and fiber intake, increasing activity as tolerated, and use stool softener(s) as prescribed. Hypoglycemic (including insulin)- educated on high risk medication Problem:High Risk Medications Goal:Patient/caregive r will teach back high risk medication side effect and precaution education Completed patient educated on taking medication(s) as prescribed by provider. Do not stop medication or skip/alter doses without speaking with your provider. Discuss medication effectiveness or side effect concerns with your provider and home care team. Check blood sugars and keep log as ordered by provider. Monitor for side effects of hypoglycemia such as increased weakness or shaking, moist skin, sweating, fast heartbeat, dizziness, sudden hunger, confusion, pale skin, numbness in mouth or tongue, irritability, nervousness, unsteadiness, nightmares, bad dreams, and restless sleep. Checking your blood sugar routinely and eating a consistent diabetic diet can help regulate blood sugars and reduce side effects. Antiplatelet- educated on high risk medication Problem:High Risk Medications Goal:Patient/caregive r will teach back high risk medication side effect and precaution education Completed patient educated on taking medication(s) as prescribed by provider. Do not stop medication or alter doses without speaking with your provider. Discuss medication effectiveness or side effect concerns with your provider and home care team. Discuss all medications you are taking, even psri-wie-tnrjfos medicines, with your provider and pharmacist since many drugs can interact with antiplatelet medications. If you forget to take a dose, DO NOT take a double dose. Take the missed dose as soon as possible on the same day. DO NOT take a double dose the next day to make up for the missed dose. Watch for signs of abnormal or excessive bleeding and bruising (refer to Bleeding Precautions education). Call your health care provider right away if you suspect something is wrong. Antibiotic- educated on high risk medication Problem:High Risk Medications Goal:Patient/caregive r will teach back high risk medication side effect and precaution education Completed patient educated on taking medication(s) as prescribed by provider. Do not stop medication or alter doses without speaking with your provider. Discuss medication effectiveness or side effect concerns with your provider and home care team. Take the full dispensed amount even if you start feeling better, as bacteria can become resistant to antibiotic treatment if you do not finish your prescription. Common side effects are upset stomach and diarrhea. Take your antibiotics with food unless otherwise indicated to help with indigestion. Taking an cqug-trz-ucrwlhi probiotic or eating yogurt with live and active cultures three times a day can help prevent antibiotic-associated diarrhea. Call your provider immediately if you develop rashes or hives as this could be a delayed allergic reaction. Seek emergency treatment if you develop severe allergic reaction symptoms such as mouth or tongue swelling. Instruct on ongoing discharge plan Problem:Discharge Goal:Manage discharge planning Completed Ongoing Discharge plan: Discharge plan discussed with patient including frequency and duration for home SN and plan for transition to: live independently at home without ongoing services. Determine patient's Advance Directive Status Description: Patient does not have advance directives. Patient/Caregiver declined Advance Directive information. Problem:Advance Directives Goal:Patient/caregive r will make healthcare providers aware of and any changes to Advance Directives throughout certification period Completed Discussed Advance Directives with Patient and/or Caregiver. Referred patient to Home Care handbook for further information on Healthcare DPOA & Living Will. Assess and instruct on measures to reduce edema Problem:SN Edema Goal:Patient will have improved edema management Completed patient instructed on elevation, compression, diet, medication compliance and benefits of activity. Wound Care: Perform wound care (1) Description: Wound Care Order: Wound location: perianal Wound type (etiology): abcess Order: Lightly pack perineal wound with Io doform, cover with gauze and ABD. Wash wound with soap and water or wound cleanser with each dressing change Frequency: daily Wound care to be completed by caregiver except for scheduled SN wound care visits. Measure wound/incision at least weekly. Okay to substitute comparable products from home care formulary. Problem:SN Integumentary/Wounds Goal:Patient/Caregive r will have improved healing and be free of signs and symptoms of complications Completed Completed by SN. Patient did tolerate well. Instruct patient/caregiver healing process and management measures to promote healing and avoid complications Problem:SN Integumentary/Wounds Goal:Patient/Caregive r will have improved healing and be free of signs and symptoms of complications Completed patient instructed on the following: healing process, signs and symptoms of infection, importance of good nutrition, importance of managing blood sugars, smoking cessation and when to report symptoms. Instruct Patient/Caregiver on wound/incision care procedure as ordered by physician Problem:SN Integumentary/Wounds Goal:Patient/Caregive r will have improved healing and be free of signs and symptoms of complications Completed patient and caregiver instructed on and return demonstrated wound care as ordered by Physician. Instruct on diabetes disease process and management of chronic condition Description: Patient has needs for education of diabetes. Problem:SN Diabetes Goal:Improved management of diabetes Completed patient assessed and reinforced on diabetes disease process, diet education, how to carb count, recogonizing s/s of hypoglycemia and hyperglycemia and managing sick days as found in the diabetes self-care booklets. Instruct on cardiovascular disease process and management of condition Description: Patient has following cardiac diagnosis(es): CAD. Problem:SN Cardiovascular Condition Goal:Improved management of cardiovascular disease Completed patient instructed on cardiac disease process, self monitoring & symptom reporting, DVT/PE prevention and Cardiac Diet. Instruct and educate on knowledge deficits Problem:SN Learning Assessment Goal:Demonstrate understanding of education Completed patient and caregiver verbalize and/or demonstrate understanding of nursing education completed today. Education methods include: verbal cues and teach back. Further education required to improve knowledge and compliance with cardiac disease management, fall prevention/home safety strategies and incision/wound care management. Maintenance COPD Description: Reinforce Acute and Sub-acute management education. Instruct on review zone sheet, nutrition in relation to COPD management, energy conservation, pacing activities, independence in ADLs vs what caregiver should be helping with, home exercise, additional COPD resources available like chronic care clinics as found in the COPD binder. Problem:SN COPD Goal:Improved management of COPD Completed Reinforced Acute and Sub-acute management education. patient reinforced on zone sheet, nutrition in relation to COPD management and energy conservation pacing activities, Romeo in ADLs vs what caregiver should be helping with and home exercise as found in the COPD binder. Sub-acute COPD Description: Reinforce Acute COPD management education. Instruct on zone sheet, methods to reduce infection risks, anxiety management including relaxation techniques, importance of sleep, stress reduction, and coping strategies for living with COPD as found in the COPD binder. Problem:SN COPD Goal:Improved management of COPD Completed Reinforced Acute COPD management education. patient reinforced on zone sheet, methods to reduce infection risks, anxiety management including: relaxation techniques, importance of sleep and stress reduction and coping strategies for living with COPD as found in the COPD binder. Acute COPD Description: Instruct on defintion of COPD, signs and symptoms of COPD exacerbation, use of zone sheet, use of MDIs, difference between rescue vs maintenance inhalers, use of nebulizer, smoking cessation, breathing management including pursed lip breathing, diaphragmatic breathing, positioning to reduce SOB, controlled coughing, use of incentive spirometer, and use of acapela as found in the COPD binder. Problem:SN COPD Goal:Improved management of COPD Completed patient reinforced on defintion of COPD, signs and symptoms of COPD exacerbation, use of zone sheet, difference between rescue vs maintenance inhalers, use of nebulizer and breathing management: pursed lip breathing, diaphragmatic breathing, positioning to reduce SOB and use of incentive spirometer as found in the COPD binder. documented in this encounter [facility]'s home Plan of care note* Visit Details Visit Type -SN RECERT Discipline -Half-Way Problems Problem Description Start Date Status Goals Interve ntions Medication Education Disciplines: Skilled Services 08/20/2022 Active 1 goal linked to scheduled/documen pawan intervention 1 goal intervention scheduled/document ed in this visit Sepsis Disciplines: Skilled Services 08/20/2022 Active 1 goal linked to scheduled/documen pawan intervention 1 goal intervention scheduled/document ed in this visit Physician Specific Parameters Disciplines: Skilled Services 08/20/2022 Active 1 goal linked to scheduled/documen pawan intervention 1 goal intervention scheduled/document ed in this visit Risk for Falls Disciplines: Skilled Services 08/20/2022 Active 1 goal linked to scheduled/documen pawan intervention 1 goal intervention scheduled/document ed in this visit Pain Disciplines: Skilled Services 08/20/2022 Active 1 goal linked to scheduled/documen pawan intervention 1 goal intervention scheduled/document ed in this visit Diabetic Foot Care Disciplines: Skilled Services 08/20/2022 Active 1 goal linked to scheduled/documen pawan intervention 1 goal intervention scheduled/document ed in this visit Oxygen Disciplines: Skilled Services 08/20/2022 Active 1 goal linked to scheduled/documen pawan intervention 1 goal intervention scheduled/document ed in this visit Nutrition/Hydration Disciplines: Skilled Services 08/20/2022 Active 1 goal linked to scheduled/documen pawan intervention 1 goal intervention scheduled/document ed in this visit High Risk Medications Disciplines: Skilled Services 08/20/2022 Active 1 goal linked to scheduled/documen pawan intervention 4 goal interventions scheduled/document ed in this visit Discharge Disciplines: Skilled Services 08/20/2022 Active 1 goal linked to scheduled/documen pawan intervention 1 goal intervention scheduled/document ed in this visit Advance Directives Disciplines: Skilled Services 08/20/2022 Active 1 goal linked to scheduled/documen pawan intervention 1 goal intervention scheduled/document ed in this visit SN Edema Disciplines: SN 08/20/2022 Active 1 goal linked to scheduled/documen pawan intervention 1 goal intervention scheduled/document ed in this visit SN Integumentary/Wound s Disciplines: SN 08/20/2022 Active 1 goal linked to scheduled/documen pawan intervention 3 goal interventions scheduled/document ed in this visit SN Diabetes Disciplines: SN 08/20/2022 Active 1 goal linked to scheduled/documen pawan intervention 1 goal intervention scheduled/document ed in this visit SN Cardiovascular Condition Disciplines: SN 08/20/2022 Active 1 goal linked to scheduled/documen pawan intervention 1 goal intervention scheduled/document ed in this visit SN Learning Assessment Disciplines: SN 08/20/2022 Active 1 goal linked to scheduled/documen pawan intervention 1 goal intervention scheduled/document ed in this visit SN COPD Disciplines: SN 09/22/2022 Active 1 goal linked to scheduled/documen pawan intervention 3 goal interventions scheduled/document ed in this visit Recertification Disciplines: Skilled Services 10/17/2022 Active 1 goal linked to scheduled/documen pawan intervention 1 goal intervention scheduled/document ed in this visit Goals Goal Associated Problem Outcome Goal Met? Visit Notes Patient/caregiver will demonstrate ability to obtain, store, identify and administer ordered medications, keep accurate medication list in home, and adhere to medication schedule Description: Patient/caregiver will demonstrate ability to obtain, store, identify and administer ordered medications, keep accurate medication list in home, and adhere to medication schedule by 12/17/22. Medication Education No Patient/caregiver will be able to identify and report symptoms of sepsis Description: Patient/caregiver will be able to identify signs/symptoms of sepsis infection and will verbalize actions to take if suspected by 12/17/22. Sepsis No Patient to maintain parameters within physician-specified ranges throughout certification period Physician Specific Parameters No Manage Risk for falls Description: Patient/caregiver will verbalize knowledge of individualized fall prevention strategies by 12/17/22. Risk for Falls No Manage Pain Description: Patient/caregiver will verbalize knowledge and understanding of appropriate techniques to control pain, including pain medication and non-pharmacological techniques. Patient will verbalize or demonstrate an acceptable level of pain as evidenced by a pain score of 0-3/10 and improvement in ability to perform activities of daily living to be achieved by 12/17/22. Pain No Manage diabetic foot care Description: Patient/caregiver will demonstrate basic understanding of and compliance with diabetic self-care management as evidenced by verbalizing purpose of daily foot care and assessment by . Diabetic Foot Care No Manage oxygen Description: Patient/caregiver will use oxygen safely and effectively in home by verbalizing and demonstrating oxygen safety by 12/17/22. Oxygen No Manage Nutrition/Hydration Description: Patient/caregiver will verbalize/demonstrate knowledge of prescribed diet and/or healthy nutrition to be achieved by 12/17/22. Nutrition/Hydration No Patient/caregiver will teach back high risk medication side effect and precaution education High Risk Medications No Manage discharge planning Description: Patient/caregiver will verbalize understanding of ongoing discharge plan provided related to disease management, arrangements for outpatient and/or community services, obtaining medications, supplies, and DME, as needed throughout certification period. Discharge No Patient/caregiver will make healthcare providers aware of and any changes to Advance Directives throughout certification period Advance Directives No Patient will have improved edema management Description: Patient/caregiver will demonstrate an understanding of edema management strategies as evidenced by resolution or stabilization of edema by 12-17-22. SN Edema No Patient/Caregiver will have improved healing and be free of signs and symptoms of complications Description: Patient/caregiver will verbalize management strategies to promote wound healing & prevent complications as evidenced by improved healing & no complications by 12-17-22. SN Integumentary/Wounds No Improved management of diabetes Description: Improve diabetic management as evidenced by patient/caregiver able to teach back diabetic management strategies by 12/17/22. SN Diabetes No Improved management of cardiovascular disease Description: Improve patient/caregiver management of cardiac disease as evidenced by patient/caregiver ability to teach back cardiac management strategies by . SN Cardiovascular Condition No Demonstrate understanding of education Description: Patient and/or caregiver will verbalize understanding of educational instruction provided throughout certification period. SN Learning Assessment No Improved management of COPD Description: Improve COPD management as evidenced by decreased reports of dyspnea, medication compliance, and patient able to teach back strategies to manage condition. Goal to be achieved by 12-17-22 SN COPD No Ongoing review of POC and need for skilled services Recertification No Interventions Intervention Associated Problem/Goal Status Variance Visit Notes Medication Education Description: Evaluate/instruct patient/caregiver on obtaining, storing, identifying and administering ordered medications as well as keeping accurate medication list in the home and adhereing to medication schedule Problem:Medication Education Goal:Patient/caregive r will demonstrate ability to obtain, store, identify and administer ordered medications, keep accurate medication list in home, and adhere to medication schedule Completed Patient instructed on importance of keeping accurate medication list in home, adhering to medication schedule and proper storage of medications. Risk of Sepsis Description: Patient is at risk for sepsis. Monitor closely for s/s of sepsis. Problem:Sepsis Goal:Patient/caregive r will be able to identify and report symptoms of sepsis Completed SPO2 Description: Notify if pulse ox is <92% at rest. Problem:Physician Specific Parameters Goal:Patient to maintain parameters within physician-specified ranges throughout certification period Completed Instruct on individual fall risk factors and strategies to prevent falls and injuries caused by falls. Problem:Risk for Falls Goal:Manage Risk for falls Completed SN: Patient instructed on Eliminating Environmental Hazards: Keep pathways clear, Keep pets out of pathways, Keep rooms and walkways well lit, Wear supportive shoes or non-skid socks and Keep frequently used items within reach Instruct on pain and instruct on strategies to control pain Problem:Pain Goal:Manage Pain Completed patient instructed on techniques to control pain including Pharmacological measures and Non-Pharmacological measures; rest, positioning/elevation, mobility/therapeutic exercise, distraction and breathing/relaxation. Monitor lower extremities for skin lesions and educate on proper foot care Problem:Diabetic Foot Care Goal:Manage diabetic foot care Completed patient instructed on diabetic foot care including daily skin inspection, wearing proper footwear/avoiding going barefoot, wash/dry feet thoroughly, applying moisturizer, avoiding between toes and toenail care. Instruct on fire safety and safe and effective use of oxygen in the home Problem:Oxygen Goal:Manage oxygen Completed patient instructed on: findings of safety risk assessment, causes of fires, firerisks for neighboring residences and buildings, precautions that can prevent fire-related injuries, oxygen safety as outlined in Home Care Patient Handbook and recommendations for specific safety risks identified in the home: maintenance of working smoke detectors and changing batteries, establishment of fire escape plan, telephone accessibility and implementation of no-smoking policy in home, including e-cigarettes and posting of No-Smoking signs on entrance doors patient and caregiver demonstrate compliance with safety recommendations. Define patient s appetite/hydration status and implement strategies to improve compliance with prescribed diet and/or healthy nutrition. Problem:Nutrition/Hyd ration Goal:Manage Nutrition/Hydration Completed reinforced patient on implementing strategies to comply with prescribed diet and healthy nutrition Opioids- educated on high risk medication Problem:High Risk Medications Goal:Patient/caregive r will teach back high risk medication side effect and precaution education Completed patient educated on taking medication(s) as prescribed by provider. Do not stop medication or alter doses without speaking with your provider. Discuss medication effectiveness or side effect concerns with your provider and home care team. Only take opioids as prescribed, do not share your medications, and take proper precautions in storing and properly disposing of opioids once no longer needed. Possible side effects of opioid medication including sedation, decreased rate of breathing, and constipation. Report over sedation to prescribing provider and practice deep breathing techniques every hour while awake. Prevent constipation by increasing water and fiber intake, increasing activity as tolerated, and use stool softener(s) as prescribed. Hypoglycemic (including insulin)- educated on high risk medication Problem:High Risk Medications Goal:Patient/caregive r will teach back high risk medication side effect and precaution education Completed patient educated on taking medication(s) as prescribed by provider. Do not stop medication or skip/alter doses without speaking with your provider. Discuss medication effectiveness or side effect concerns with your provider and home care team. Check blood sugars and keep log as ordered by provider. Monitor for side effects of hypoglycemia such as increased weakness or shaking, moist skin, sweating, fast heartbeat, dizziness, sudden hunger, confusion, pale skin, numbness in mouth or tongue, irritability, nervousness, unsteadiness, nightmares, bad dreams, and restless sleep. Checking your blood sugar routinely and eating a consistent diabetic diet can help regulate blood sugars and reduce side effects. Antiplatelet- educated on high risk medication Problem:High Risk Medications Goal:Patient/caregive r will teach back high risk medication side effect and precaution education Completed patient educated on taking medication(s) as prescribed by provider. Do not stop medication or alter doses without speaking with your provider. Discuss medication effectiveness or side effect concerns with your provider and home care team. Discuss all medications you are taking, even [id number] medicines, with your provider and pharmacist since many drugs can interact with antiplatelet medications. If you forget to take a dose, DO NOT take a double dose. Take the missed dose as soon as possible on the same day. DO NOT take a double dose the next day to make up for the missed dose. Watch for signs of abnormal or excessive bleeding and bruising (refer to Bleeding Precautions education). Call your health care provider right away if you suspect something is wrong. Antibiotic- educated on high risk medication Problem:High Risk Medications Goal:Patient/caregive r will teach back high risk medication side effect and precaution education Completed patient educated on taking medication(s) as prescribed by provider. Do not stop medication or alter doses without speaking with your provider. Discuss medication effectiveness or side effect concerns with your provider and home care team. Take the full dispensed amount even if you start feeling better, as bacteria can become resistant to antibiotic treatment if you do not finish your prescription. Common side effects are upset stomach and diarrhea. Take your antibiotics with food unless otherwise indicated to help with indigestion. Taking an [id number] probiotic or eating yogurt with live and active cultures three times a day can help prevent antibiotic-associated diarrhea. Call your provider immediately if you develop rashes or hives as this could be a delayed allergic reaction. Seek emergency treatment if you develop severe allergic reaction symptoms such as mouth or tongue swelling. Instruct on ongoing discharge plan Problem:Discharge Goal:Manage discharge planning Completed Ongoing Discharge plan: Discharge plan discussed with patient including frequency and duration for home SN and plan for transition to: caregiver assistance. Determine patient's Advance Directive Status Description: Patient does not have advance directives. Patient/Caregiver declined Advance Directive information. Problem:Advance Directives Goal:Patient/caregive r will make healthcare providers aware of and any changes to Advance Directives throughout certification period Completed Discussed Advance Directives with Patient and/or Caregiver. Referred patient to Home Care handbook for further information on Healthcare DPOA & Living Will. Assess and instruct on measures to reduce edema Problem:SN Edema Goal:Patient will have improved edema management Completed patient instructed on elevation, compression, diet, medication compliance and benefits of activity. Wound Care: Perform wound care (1) Description: Wound Care Order: Wound location: perianal Wound type (etiology): abcess Order: Lightly pack perineal wound with Io doform, cover with gauze and ABD. Wash wound with soap and water or wound cleanser with each dressing change Frequency: daily Wound care to be completed by caregiver except for scheduled SN wound care visits. Measure wound/incision at least weekly. Okay to substitute comparable products from home care formulary. Problem:SN Integumentary/Wounds Goal:Patient/Caregive r will have improved healing and be free of signs and symptoms of complications Completed Completed by SN. Patient did tolerate well. Instruct patient/caregiver healing process and management measures to promote healing and avoid complications Problem:SN Integumentary/Wounds Goal:Patient/Caregive r will have improved healing and be free of signs and symptoms of complications Completed patient instructed on the following: healing process, signs and symptoms of infection, importance of good nutrition, importance of managing blood sugars, smoking cessation and when to report symptoms. Instruct Patient/Caregiver on wound/incision care procedure as ordered by physician Problem:SN Integumentary/Wounds Goal:Patient/Caregive r will have improved healing and be free of signs and symptoms of complications Completed patient instructed on wound care as ordered by Physician. Instruct on diabetes disease process and management of chronic condition Description: Patient has needs for education of diabetes. Problem:SN Diabetes Goal:Improved management of diabetes Completed patient assessed and reinforced on diabetes disease process, how food and insulin affect blood sugar, diet education, how to carb count, recogonizing s/s of hypoglycemia and hyperglycemia and managing sick days as found in the diabetes self-care booklets. Instruct on cardiovascular disease process and management of condition Description: Patient has following cardiac diagnosis(es): CAD. Problem:SN Cardiovascular Condition Goal:Improved management of cardiovascular disease Completed patient instructed on cardiac disease process, self monitoring & symptom reporting and Cardiac Diet. Instruct and educate on knowledge deficits Problem:SN Learning Assessment Goal:Demonstrate understanding of education Completed patient verbalize and/or demonstrate understanding of nursing education completed today. Education methods include: verbal cues and teach back. Further education required to improve knowledge and compliance with depression/anxiety care management, diabetic care management, fall prevention/home safety strategies, incision/wound care management, medication management, nutrition and pulmonary disease management. Maintenance COPD Description: Reinforce Acute and Sub-acute management education. Instruct on review zone sheet, nutrition in relation to COPD management, energy conservation, pacing activities, independence in ADLs vs what caregiver should be helping with, home exercise, additional COPD resources available like chronic care clinics as found in the COPD binder. Problem:SN COPD Goal:Improved management of COPD Completed Reinforced Acute and Sub-acute management education. patient reinforced on zone sheet, nutrition in relation to COPD management and energy conservation pacing activities and Romeo in ADLs vs what caregiver should be helping with as found in the COPD binder. Sub-acute COPD Description: Reinforce Acute COPD management education. Instruct on zone sheet, methods to reduce infection risks, anxiety management including relaxation techniques, importance of sleep, stress reduction, and coping strategies for living with COPD as found in the COPD binder. Problem:SN COPD Goal:Improved management of COPD Completed Reinforced Acute COPD management education. patient reinforced on zone sheet, methods to reduce infection risks, anxiety management including: relaxation techniques, importance of sleep and stress reduction and coping strategies for living with COPD as found in the COPD binder. Acute COPD Description: Instruct on defintion of COPD, signs and symptoms of COPD exacerbation, use of zone sheet, use of MDIs, difference between rescue vs maintenance inhalers, use of nebulizer, smoking cessation, breathing management including pursed lip breathing, diaphragmatic breathing, positioning to reduce SOB, controlled coughing, use of incentive spirometer, and use of acapela as found in the COPD binder. Problem:SN COPD Goal:Improved management of COPD Completed patient reinforced on defintion of COPD, signs and symptoms of COPD exacerbation, use of zone sheet, difference between rescue vs maintenance inhalers, use of nebulizer, smoking cessation and breathing management: pursed lip breathing, diaphragmatic breathing, positioning to reduce SOB and controlled coughing as found in the COPD binder. Continued need for Home Care Services Description: POC and certification renewed due to continuing [facility] needs. Problem:Recertificati on Goal:Ongoing review of POC and need for skilled services Completed documented in this encounter [facility]'s home Plan of care note* Visit Details Visit Type -SN ROUTINE Discipline -Half-Way Problems Problem Description Start Date Status Goals Interve ntions Medication Education Disciplines: Skilled Services 08/20/2022 Active 1 goal linked to scheduled/documen pawan intervention 1 goal intervention scheduled/document ed in this visit Sepsis Disciplines: Skilled Services 08/20/2022 Active 1 goal linked to scheduled/documen pawan intervention 1 goal intervention scheduled/document ed in this visit Physician Specific Parameters Disciplines: Skilled Services 08/20/2022 Active 1 goal linked to scheduled/documen pawan intervention 1 goal intervention scheduled/document ed in this visit Risk for Falls Disciplines: Skilled Services 08/20/2022 Active 1 goal linked to scheduled/documen pawan intervention 1 goal intervention scheduled/document ed in this visit Pain Disciplines: Skilled Services 08/20/2022 Active 1 goal linked to scheduled/documen pawan intervention 1 goal intervention scheduled/document ed in this visit Diabetic Foot Care Disciplines: Skilled Services 08/20/2022 Active 1 goal linked to scheduled/documen pawan intervention 1 goal intervention scheduled/document ed in this visit Oxygen Disciplines: Skilled Services 08/20/2022 Active 1 goal linked to scheduled/documen pawan intervention 1 goal intervention scheduled/document ed in this visit Nutrition/Hydration Disciplines: Skilled Services 08/20/2022 Active 1 goal linked to scheduled/documen pawan intervention 1 goal intervention scheduled/document ed in this visit High Risk Medications Disciplines: Skilled Services 08/20/2022 Active 1 goal linked to scheduled/documen pawan intervention 4 goal interventions scheduled/document ed in this visit Discharge Disciplines: Skilled Services 08/20/2022 Active 1 goal linked to scheduled/documen pawan intervention 1 goal intervention scheduled/document ed in this visit Advance Directives Disciplines: Skilled Services 08/20/2022 Active 1 goal linked to scheduled/documen pawan intervention 1 goal intervention scheduled/document ed in this visit SN Edema Disciplines: SN 08/20/2022 Active 1 goal linked to scheduled/documen pawan intervention 1 goal intervention scheduled/document ed in this visit SN Integumentary/Wound s Disciplines: SN 08/20/2022 Active 1 goal linked to scheduled/documen pawan intervention 3 goal interventions scheduled/document ed in this visit SN Diabetes Disciplines: SN 08/20/2022 Active 1 goal linked to scheduled/documen pawan intervention 1 goal intervention scheduled/document ed in this visit SN Cardiovascular Condition Disciplines: SN 08/20/2022 Active 1 goal linked to scheduled/documen pawan intervention 1 goal intervention scheduled/document ed in this visit SN Learning Assessment Disciplines: SN 08/20/2022 Active 1 goal linked to scheduled/documen pawan intervention 1 goal intervention scheduled/document ed in this visit SN COPD Disciplines: SN 09/22/2022 Active 1 goal linked to scheduled/documen pawan intervention 1 goal intervention scheduled/document ed in this visit Recertification Disciplines: Skilled Services 10/17/2022 Active 1 goal linked to scheduled/documen pawan intervention 1 goal intervention scheduled/document ed in this visit Goals Goal Associated Problem Outcome Goal Met? Visit Notes Patient/caregiver will demonstrate ability to obtain, store, identify and administer ordered medications, keep accurate medication list in home, and adhere to medication schedule Description: Patient/caregiver will demonstrate ability to obtain, store, identify and administer ordered medications, keep accurate medication list in home, and adhere to medication schedule by 12/17/22. Medication Education No Patient/caregiver will be able to identify and report symptoms of sepsis Description: Patient/caregiver will be able to identify signs/symptoms of sepsis infection and will verbalize actions to take if suspected by 12/17/22. Sepsis No Patient to maintain parameters within physician-specified ranges throughout certification period Physician Specific Parameters No Manage Risk for falls Description: Patient/caregiver will verbalize knowledge of individualized fall prevention strategies by 12/17/22. Risk for Falls No Manage Pain Description: Patient/caregiver will verbalize knowledge and understanding of appropriate techniques to control pain, including pain medication and non-pharmacological techniques. Patient will verbalize or demonstrate an acceptable level of pain as evidenced by a pain score of 0-3/10 and improvement in ability to perform activities of daily living to be achieved by 12/17/22. Pain No Manage diabetic foot care Description: Patient/caregiver will demonstrate basic understanding of and compliance with diabetic self-care management as evidenced by verbalizing purpose of daily foot care and assessment by . Diabetic Foot Care No Manage oxygen Description: Patient/caregiver will use oxygen safely and effectively in home by verbalizing and demonstrating oxygen safety by 12/17/22. Oxygen No Manage Nutrition/Hydration Description: Patient/caregiver will verbalize/demonstrate knowledge of prescribed diet and/or healthy nutrition to be achieved by 12/17/22. Nutrition/Hydration No Patient/caregiver will teach back high risk medication side effect and precaution education High Risk Medications No Manage discharge planning Description: Patient/caregiver will verbalize understanding of ongoing discharge plan provided related to disease management, arrangements for outpatient and/or community services, obtaining medications, supplies, and DME, as needed throughout certification period. Discharge No Patient/caregiver will make healthcare providers aware of and any changes to Advance Directives throughout certification period Advance Directives No Patient will have improved edema management Description: Patient/caregiver will demonstrate an understanding of edema management strategies as evidenced by resolution or stabilization of edema by 12-17-22. SN Edema No Patient/Caregiver will have improved healing and be free of signs and symptoms of complications Description: Patient/caregiver will verbalize management strategies to promote wound healing & prevent complications as evidenced by improved healing & no complications by 12-17-22. SN Integumentary/Wounds No Improved management of diabetes Description: Improve diabetic management as evidenced by patient/caregiver able to teach back diabetic management strategies by 12/17/22. SN Diabetes No Improved management of cardiovascular disease Description: Improve patient/caregiver management of cardiac disease as evidenced by patient/caregiver ability to teach back cardiac management strategies by . SN Cardiovascular Condition No Demonstrate understanding of education Description: Patient and/or caregiver will verbalize understanding of educational instruction provided throughout certification period. SN Learning Assessment No Improved management of COPD Description: Improve COPD management as evidenced by decreased reports of dyspnea, medication compliance, and patient able to teach back strategies to manage condition. Goal to be achieved by 12-17-22 SN COPD No Ongoing review of POC and need for skilled services Recertification No Interventions Intervention Associated Problem/Goal Status Variance Visit Notes Medication Education Description: Evaluate/instruct patient/caregiver on obtaining, storing, identifying and administering ordered medications as well as keeping accurate medication list in the home and adhereing to medication schedule Problem:Medication Education Goal:Patient/caregive r will demonstrate ability to obtain, store, identify and administer ordered medications, keep accurate medication list in home, and adhere to medication schedule Completed Patient instructed on importance of keeping accurate medication list in home, adhering to medication schedule and proper storage of medications. Risk of Sepsis Description: Patient is at risk for sepsis. Monitor closely for s/s of sepsis. Problem:Sepsis Goal:Patient/caregive r will be able to identify and report symptoms of sepsis Completed SPO2 Description: Notify if pulse ox is <92% at rest. Problem:Physician Specific Parameters Goal:Patient to maintain parameters within physician-specified ranges throughout certification period Completed Instruct on individual fall risk factors and strategies to prevent falls and injuries caused by falls. Problem:Risk for Falls Goal:Manage Risk for falls Completed SN: Patient instructed on Eliminating Environmental Hazards: Keep pathways clear, Keep pets out of pathways, Keep rooms and walkways well lit, Wear supportive shoes or non-skid socks and Keep frequently used items within reach Instruct on pain and instruct on strategies to control pain Problem:Pain Goal:Manage Pain Completed patient instructed on techniques to control pain including Pharmacological measures and Non-Pharmacological measures; rest, positioning/elevation, mobility/therapeutic exercise, distraction and breathing/relaxation. Monitor lower extremities for skin lesions and educate on proper foot care Problem:Diabetic Foot Care Goal:Manage diabetic foot care Completed patient instructed on diabetic foot care including daily skin inspection, wearing proper footwear/avoiding going barefoot, wash/dry feet thoroughly, applying moisturizer, avoiding between toes and toenail care. Instruct on fire safety and safe and effective use of oxygen in the home Problem:Oxygen Goal:Manage oxygen Completed patient instructed on: findings of safety risk assessment, causes of fires, firerisks for neighboring residences and buildings, precautions that can prevent fire-related injuries, oxygen safety as outlined in Home Care Patient Handbook and recommendations for specific safety risks identified in the home: establishment of fire escape plan, telephone accessibility and implementation of no-smoking policy in home, including e-cigarettes and posting of No-Smoking signs on entrance doors patient and caregiver demonstrate compliance with safety recommendations. Define patient s appetite/hydration status and implement strategies to improve compliance with prescribed diet and/or healthy nutrition. Problem:Nutrition/Hyd ration Goal:Manage Nutrition/Hydration Completed reinforced patient on implementing strategies to comply with prescribed diet, healthy nutrition and adequate hydration Opioids- educated on high risk medication Problem:High Risk Medications Goal:Patient/caregive r will teach back high risk medication side effect and precaution education Completed patient educated on taking medication(s) as prescribed by provider. Do not stop medication or alter doses without speaking with your provider. Discuss medication effectiveness or side effect concerns with your provider and home care team. Only take opioids as prescribed, do not share your medications, and take proper precautions in storing and properly disposing of opioids once no longer needed. Possible side effects of opioid medication including sedation, decreased rate of breathing, and constipation. Report over sedation to prescribing provider and practice deep breathing techniques every hour while awake. Prevent constipation by increasing water and fiber intake, increasing activity as tolerated, and use stool softener(s) as prescribed. Hypoglycemic (including insulin)- educated on high risk medication Problem:High Risk Medications Goal:Patient/caregive r will teach back high risk medication side effect and precaution education Completed patient educated on taking medication(s) as prescribed by provider. Do not stop medication or skip/alter doses without speaking with your provider. Discuss medication effectiveness or side effect concerns with your provider and home care team. Check blood sugars and keep log as ordered by provider. Monitor for side effects of hypoglycemia such as increased weakness or shaking, moist skin, sweating, fast heartbeat, dizziness, sudden hunger, confusion, pale skin, numbness in mouth or tongue, irritability, nervousness, unsteadiness, nightmares, bad dreams, and restless sleep. Checking your blood sugar routinely and eating a consistent diabetic diet can help regulate blood sugars and reduce side effects. Antiplatelet- educated on high risk medication Problem:High Risk Medications Goal:Patient/caregive r will teach back high risk medication side effect and precaution education Completed patient educated on taking medication(s) as prescribed by provider. Do not stop medication or alter doses without speaking with your provider. Discuss medication effectiveness or side effect concerns with your provider and home care team. Discuss all medications you are taking, even [id number] medicines, with your provider and pharmacist since many drugs can interact with antiplatelet medications. If you forget to take a dose, DO NOT take a double dose. Take the missed dose as soon as possible on the same day. DO NOT take a double dose the next day to make up for the missed dose. Watch for signs of abnormal or excessive bleeding and bruising (refer to Bleeding Precautions education). Call your health care provider right away if you suspect something is wrong. Antibiotic- educated on high risk medication Problem:High Risk Medications Goal:Patient/caregive r will teach back high risk medication side effect and precaution education Completed patient educated on taking medication(s) as prescribed by provider. Do not stop medication or alter doses without speaking with your provider. Discuss medication effectiveness or side effect concerns with your provider and home care team. Take the full dispensed amount even if you start feeling better, as bacteria can become resistant to antibiotic treatment if you do not finish your prescription. Common side effects are upset stomach and diarrhea. Take your antibiotics with food unless otherwise indicated to help with indigestion. Taking an ilit-xru-nsqygts probiotic or eating yogurt with live and active cultures three times a day can help prevent antibiotic-associated diarrhea. Call your provider immediately if you develop rashes or hives as this could be a delayed allergic reaction. Seek emergency treatment if you develop severe allergic reaction symptoms such as mouth or tongue swelling. Instruct on ongoing discharge plan Problem:Discharge Goal:Manage discharge planning Completed Ongoing Discharge plan: Discharge plan discussed with patient including frequency and duration for home SN and plan for transition to: caregiver assistance. Determine patient's Advance Directive Status Description: Patient does not have advance directives. Patient/Caregiver declined Advance Directive information. Problem:Advance Directives Goal:Patient/caregive r will make healthcare providers aware of and any changes to Advance Directives throughout certification period Completed Discussed Advance Directives with Patient and/or Caregiver. Referred patient to Home Care handbook for further information on Healthcare DPOA & Living Will. Assess and instruct on measures to reduce edema Problem:SN Edema Goal:Patient will have improved edema management Completed patient instructed on elevation, compression, diet, medication compliance and benefits of activity. Wound Care: Perform wound care (1) Description: Wound Care Order: Wound location: perianal Wound type (etiology): abcess Order: Lightly pack perineal wound with Io doform, cover with gauze and ABD. Wash wound with soap and water or wound cleanser with each dressing change Frequency: daily Wound care to be completed by caregiver except for scheduled SN wound care visits. Measure wound/incision at least weekly. Okay to substitute comparable products from home care formulary. Problem:SN Integumentary/Wounds Goal:Patient/Caregive r will have improved healing and be free of signs and symptoms of complications Completed Completed by SN. Patient did tolerate well. Instruct patient/caregiver healing process and management measures to promote healing and avoid complications Problem:SN Integumentary/Wounds Goal:Patient/Caregive r will have improved healing and be free of signs and symptoms of complications Completed patient instructed on the following: healing process, signs and symptoms of infection, importance of good nutrition, importance of managing blood sugars, smoking cessation and when to report symptoms. Instruct Patient/Caregiver on wound/incision care procedure as ordered by physician Problem:SN Integumentary/Wounds Goal:Patient/Caregive r will have improved healing and be free of signs and symptoms of complications Completed patient instructed on and return demonstrated wound care as ordered by Physician. Instruct on diabetes disease process and management of chronic condition Description: Patient has needs for education of diabetes. Problem:SN Diabetes Goal:Improved management of diabetes Completed patient assessed and reinforced on diabetes disease process, how food and insulin affect blood sugar, diet education, how to carb count and recogonizing s/s of hypoglycemia and hyperglycemia as found in the diabetes self-care booklets. Instruct on cardiovascular disease process and management of condition Description: Patient has following cardiac diagnosis(es): CAD. Problem:SN Cardiovascular Condition Goal:Improved management of cardiovascular disease Completed patient instructed on cardiac disease process, self monitoring & symptom reporting and Cardiac Diet. Instruct and educate on knowledge deficits Problem:SN Learning Assessment Goal:Demonstrate understanding of education Completed patient verbalize and/or demonstrate understanding of nursing education completed today. Education methods include: verbal cues. Further education required to improve knowledge and compliance with cardiac disease management, diabetic care management, fall prevention/home safety strategies and incision/wound care management. Acute COPD Description: Instruct on defintion of COPD, signs and symptoms of COPD exacerbation, use of zone sheet, use of MDIs, difference between rescue vs maintenance inhalers, use of nebulizer, smoking cessation, breathing management including pursed lip breathing, diaphragmatic breathing, positioning to reduce SOB, controlled coughing, use of incentive spirometer, and use of acapela as found in the COPD binder. Problem:SN COPD Goal:Improved management of COPD Completed patient reinforced on defintion of COPD, signs and symptoms of COPD exacerbation, use of zone sheet, difference between rescue vs maintenance inhalers, use of nebulizer, smoking cessation and breathing management: pursed lip breathing, diaphragmatic breathing, positioning to reduce SOB, controlled coughing and use of incentive spirometer as found in the COPD binder. Continued need for Home Care Services Description: POC and certification renewed due to continuing [facility] needs. Problem:Recertificati on Goal:Ongoing review of POC and need for skilled services Completed documented in this encounter [facility]'s home Plan of care note* Visit Details Visit Type -SN PRN VISIT Discipline -Half-Way Problems Problem Description Start Date Status Goals Interve ntions Medication Education Disciplines: Skilled Services 08/20/2022 Active 1 goal linked to scheduled/documen pawan intervention 1 goal intervention scheduled/document ed in this visit Sepsis Disciplines: Skilled Services 08/20/2022 Active 1 goal linked to scheduled/documen pawan intervention 1 goal intervention scheduled/document ed in this visit Physician Specific Parameters Disciplines: Skilled Services 08/20/2022 Active 1 goal linked to scheduled/documen pawan intervention 1 goal intervention scheduled/document ed in this visit Risk for Falls Disciplines: Skilled Services 08/20/2022 Active 1 goal linked to scheduled/documen pawan intervention 1 goal intervention scheduled/document ed in this visit Pain Disciplines: Skilled Services 08/20/2022 Active 1 goal linked to scheduled/documen pawan intervention 1 goal intervention scheduled/document ed in this visit Diabetic Foot Care Disciplines: Skilled Services 08/20/2022 Active 1 goal linked to scheduled/documen pawan intervention 1 goal intervention scheduled/document ed in this visit Oxygen Disciplines: Skilled Services 08/20/2022 Active 1 goal linked to scheduled/documen pawan intervention 1 goal intervention scheduled/document ed in this visit Nutrition/Hydration Disciplines: Skilled Services 08/20/2022 Active 1 goal linked to scheduled/documen pawan intervention 1 goal intervention scheduled/document ed in this visit High Risk Medications Disciplines: Skilled Services 08/20/2022 Active 1 goal linked to scheduled/documen pawan intervention 4 goal interventions scheduled/document ed in this visit Discharge Disciplines: Skilled Services 08/20/2022 Active 1 goal linked to scheduled/documen pawan intervention 1 goal intervention scheduled/document ed in this visit Advance Directives Disciplines: Skilled Services 08/20/2022 Active 1 goal linked to scheduled/documen pawan intervention 1 goal intervention scheduled/document ed in this visit SN Edema Disciplines: SN 08/20/2022 Active 1 goal linked to scheduled/documen pawan intervention 1 goal intervention scheduled/document ed in this visit SN Integumentary/Wound s Disciplines: SN 08/20/2022 Active 1 goal linked to scheduled/documen pawan intervention 3 goal interventions scheduled/document ed in this visit SN Diabetes Disciplines: SN 08/20/2022 Active 1 goal linked to scheduled/documen pawan intervention 1 goal intervention scheduled/document ed in this visit SN Cardiovascular Condition Disciplines: SN 08/20/2022 Active 1 goal linked to scheduled/documen pawan intervention 1 goal intervention scheduled/document ed in this visit SN Learning Assessment Disciplines: SN 08/20/2022 Active 1 goal linked to scheduled/documen pawan intervention 1 goal intervention scheduled/document ed in this visit SN COPD Disciplines: SN 09/22/2022 Active 1 goal linked to scheduled/documen pawan intervention 3 goal interventions scheduled/document ed in this visit Recertification Disciplines: Skilled Services 10/17/2022 Active 1 goal linked to scheduled/documen pawan intervention 1 goal intervention scheduled/document ed in this visit Goals Goal Associated Problem Outcome Goal Met? Visit Notes Patient/caregiver will demonstrate ability to obtain, store, identify and administer ordered medications, keep accurate medication list in home, and adhere to medication schedule Description: Patient/caregiver will demonstrate ability to obtain, store, identify and administer ordered medications, keep accurate medication list in home, and adhere to medication schedule by 12/17/22. Medication Education No Patient/caregiver will be able to identify and report symptoms of sepsis Description: Patient/caregiver will be able to identify signs/symptoms of sepsis infection and will verbalize actions to take if suspected by 12/17/22. Sepsis No Patient to maintain parameters within physician-specified ranges throughout certification period Physician Specific Parameters No Manage Risk for falls Description: Patient/caregiver will verbalize knowledge of individualized fall prevention strategies by 12/17/22. Risk for Falls No Manage Pain Description: Patient/caregiver will verbalize knowledge and understanding of appropriate techniques to control pain, including pain medication and non-pharmacological techniques. Patient will verbalize or demonstrate an acceptable level of pain as evidenced by a pain score of 0-3/10 and improvement in ability to perform activities of daily living to be achieved by 12/17/22. Pain No Manage diabetic foot care Description: Patient/caregiver will demonstrate basic understanding of and compliance with diabetic self-care management as evidenced by verbalizing purpose of daily foot care and assessment by . Diabetic Foot Care No Manage oxygen Description: Patient/caregiver will use oxygen safely and effectively in home by verbalizing and demonstrating oxygen safety by 12/17/22. Oxygen No Manage Nutrition/Hydration Description: Patient/caregiver will verbalize/demonstrate knowledge of prescribed diet and/or healthy nutrition to be achieved by 12/17/22. Nutrition/Hydration No Patient/caregiver will teach back high risk medication side effect and precaution education High Risk Medications No Manage discharge planning Description: Patient/caregiver will verbalize understanding of ongoing discharge plan provided related to disease management, arrangements for outpatient and/or community services, obtaining medications, supplies, and DME, as needed throughout certification period. Discharge No Patient/caregiver will make healthcare providers aware of and any changes to Advance Directives throughout certification period Advance Directives No Patient will have improved edema management Description: Patient/caregiver will demonstrate an understanding of edema management strategies as evidenced by resolution or stabilization of edema by 12-17-22. SN Edema No Patient/Caregiver will have improved healing and be free of signs and symptoms of complications Description: Patient/caregiver will verbalize management strategies to promote wound healing & prevent complications as evidenced by improved healing & no complications by 12-17-22. SN Integumentary/Wounds No Improved management of diabetes Description: Improve diabetic management as evidenced by patient/caregiver able to teach back diabetic management strategies by 12/17/22. SN Diabetes No Improved management of cardiovascular disease Description: Improve patient/caregiver management of cardiac disease as evidenced by patient/caregiver ability to teach back cardiac management strategies by . SN Cardiovascular Condition No Demonstrate understanding of education Description: Patient and/or caregiver will verbalize understanding of educational instruction provided throughout certification period. SN Learning Assessment No Improved management of COPD Description: Improve COPD management as evidenced by decreased reports of dyspnea, medication compliance, and patient able to teach back strategies to manage condition. Goal to be achieved by 12-17-22 SN COPD No Ongoing review of POC and need for skilled services Recertification No Interventions Intervention Associated Problem/Goal Status Variance Visit Notes Medication Education Description: Evaluate/instruct patient/caregiver on obtaining, storing, identifying and administering ordered medications as well as keeping accurate medication list in the home and adhereing to medication schedule Problem:Medication Education Goal:Patient/caregive r will demonstrate ability to obtain, store, identify and administer ordered medications, keep accurate medication list in home, and adhere to medication schedule Completed Patient instructed on importance of keeping accurate medication list in home, adhering to medication schedule and proper storage of medications. Risk of Sepsis Description: Patient is at risk for sepsis. Monitor closely for s/s of sepsis. Problem:Sepsis Goal:Patient/caregive r will be able to identify and report symptoms of sepsis Completed SPO2 Description: Notify if pulse ox is <92% at rest. Problem:Physician Specific Parameters Goal:Patient to maintain parameters within physician-specified ranges throughout certification period Completed Instruct on individual fall risk factors and strategies to prevent falls and injuries caused by falls. Problem:Risk for Falls Goal:Manage Risk for falls Completed SN: Patient instructed on Eliminating Environmental Hazards: Keep pathways clear, Keep pets out of pathways, Keep rooms and walkways well lit, Wear supportive shoes or non-skid socks and Keep frequently used items within reach Instruct on pain and instruct on strategies to control pain Problem:Pain Goal:Manage Pain Completed patient instructed on techniques to control pain including Pharmacological measures and Non-Pharmacological measures; rest, positioning/elevation, mobility/therapeutic exercise, distraction and breathing/relaxation. Monitor lower extremities for skin lesions and educate on proper foot care Problem:Diabetic Foot Care Goal:Manage diabetic foot care Completed patient instructed on diabetic foot care including daily skin inspection, wearing proper footwear/avoiding going barefoot, wash/dry feet thoroughly, applying moisturizer, avoiding between toes and toenail care. Instruct on fire safety and safe and effective use of oxygen in the home Problem:Oxygen Goal:Manage oxygen Completed patient instructed on: findings of safety risk assessment, causes of fires, firerisks for neighboring residences and buildings, precautions that can prevent fire-related injuries, oxygen safety as outlined in Home Care Patient Handbook and recommendations for specific safety risks identified in the home: maintenance of working smoke detectors and changing batteries, establishment of fire escape plan, telephone accessibility and implementation of no-smoking policy in home, including e-cigarettes and posting of No-Smoking signs on entrance doors patient demonstrate compliance with safety recommendations. Define patient s appetite/hydration status and implement strategies to improve compliance with prescribed diet and/or healthy nutrition. Problem:Nutrition/Hyd ration Goal:Manage Nutrition/Hydration Completed reinforced patient on implementing strategies to comply with prescribed diet, healthy nutrition and adequate hydration Opioids- educated on high risk medication Problem:High Risk Medications Goal:Patient/caregive r will teach back high risk medication side effect and precaution education Completed patient educated on taking medication(s) as prescribed by provider. Do not stop medication or alter doses without speaking with your provider. Discuss medication effectiveness or side effect concerns with your provider and home care team. Only take opioids as prescribed, do not share your medications, and take proper precautions in storing and properly disposing of opioids once no longer needed. Possible side effects of opioid medication including sedation, decreased rate of breathing, and constipation. Report over sedation to prescribing provider and practice deep breathing techniques every hour while awake. Prevent constipation by increasing water and fiber intake, increasing activity as tolerated, and use stool softener(s) as prescribed. Hypoglycemic (including insulin)- educated on high risk medication Problem:High Risk Medications Goal:Patient/caregive r will teach back high risk medication side effect and precaution education Completed patient educated on taking medication(s) as prescribed by provider. Do not stop medication or skip/alter doses without speaking with your provider. Discuss medication effectiveness or side effect concerns with your provider and home care team. Check blood sugars and keep log as ordered by provider. Monitor for side effects of hypoglycemia such as increased weakness or shaking, moist skin, sweating, fast heartbeat, dizziness, sudden hunger, confusion, pale skin, numbness in mouth or tongue, irritability, nervousness, unsteadiness, nightmares, bad dreams, and restless sleep. Checking your blood sugar routinely and eating a consistent diabetic diet can help regulate blood sugars and reduce side effects. Antiplatelet- educated on high risk medication Problem:High Risk Medications Goal:Patient/caregive r will teach back high risk medication side effect and precaution education Completed patient educated on taking medication(s) as prescribed by provider. Do not stop medication or alter doses without speaking with your provider. Discuss medication effectiveness or side effect concerns with your provider and home care team. Discuss all medications you are taking, even avcf-ell-fkwantv medicines, with your provider and pharmacist since many drugs can interact with antiplatelet medications. If you forget to take a dose, DO NOT take a double dose. Take the missed dose as soon as possible on the same day. DO NOT take a double dose the next day to make up for the missed dose. Watch for signs of abnormal or excessive bleeding and bruising (refer to Bleeding Precautions education). Call your health care provider right away if you suspect something is wrong. Antibiotic- educated on high risk medication Problem:High Risk Medications Goal:Patient/caregive r will teach back high risk medication side effect and precaution education Completed patient educated on taking medication(s) as prescribed by provider. Do not stop medication or alter doses without speaking with your provider. Discuss medication effectiveness or side effect concerns with your provider and home care team. Take the full dispensed amount even if you start feeling better, as bacteria can become resistant to antibiotic treatment if you do not finish your prescription. Common side effects are upset stomach and diarrhea. Take your antibiotics with food unless otherwise indicated to help with indigestion. Taking an ghnc-vsf-[id number] probiotic or eating yogurt with live and active cultures three times a day can help prevent antibiotic-associated diarrhea. Call your provider immediately if you develop rashes or hives as this could be a delayed allergic reaction. Seek emergency treatment if you develop severe allergic reaction symptoms such as mouth or tongue swelling. Instruct on ongoing discharge plan Problem:Discharge Goal:Manage discharge planning Completed Ongoing Discharge plan: Discharge plan discussed with patient including frequency and duration for home SN and plan for transition to: caregiver assistance. Determine patient's Advance Directive Status Description: Patient does not have advance directives. Patient/Caregiver declined Advance Directive information. Problem:Advance Directives Goal:Patient/caregive r will make healthcare providers aware of and any changes to Advance Directives throughout certification period Completed Discussed Advance Directives with Patient and/or Caregiver. Referred patient to Home Care handbook for further information on Healthcare DPOA & Living Will. Assess and instruct on measures to reduce edema Problem:SN Edema Goal:Patient will have improved edema management Completed patient instructed on elevation, compression, diet, medication compliance and benefits of activity. Wound Care: Perform wound care (1) Description: Wound Care Order: Wound location: perianal Wound type (etiology): abcess Order: Lightly pack perineal wound with Io doform, cover with gauze and ABD. Wash wound with soap and water or wound cleanser with each dressing change Frequency: daily Wound care to be completed by caregiver except for scheduled SN wound care visits. Measure wound/incision at least weekly. Okay to substitute comparable products from home care formulary. Problem:SN Integumentary/Wounds Goal:Patient/Caregive r will have improved healing and be free of signs and symptoms of complications Completed Completed by patient/caregiver completed independently . Patient did tolerate well. Instruct patient/caregiver healing process and management measures to promote healing and avoid complications Problem:SN Integumentary/Wounds Goal:Patient/Caregive r will have improved healing and be free of signs and symptoms of complications Completed patient instructed on the following: healing process, signs and symptoms of infection, importance of good nutrition, importance of managing blood sugars, smoking cessation and when to report symptoms. Instruct Patient/Caregiver on wound/incision care procedure as ordered by physician Problem:SN Integumentary/Wounds Goal:Patient/Caregive r will have improved healing and be free of signs and symptoms of complications Completed patient instructed on and return demonstrated wound care as ordered by Physician. Instruct on diabetes disease process and management of chronic condition Description: Patient has needs for education of diabetes. Problem:SN Diabetes Goal:Improved management of diabetes Completed patient assessed and reinforced on diabetes disease process, diet education, how to carb count, recogonizing s/s of hypoglycemia and hyperglycemia and managing sick days as found in the diabetes self-care booklets. Instruct on cardiovascular disease process and management of condition Description: Patient has following cardiac diagnosis(es): CAD. Problem:SN Cardiovascular Condition Goal:Improved management of cardiovascular disease Completed patient instructed on cardiac disease process, self monitoring & symptom reporting and Cardiac Diet. Instruct and educate on knowledge deficits Problem:SN Learning Assessment Goal:Demonstrate understanding of education Completed patient verbalize and/or demonstrate understanding of nursing education completed today. Education methods include: verbal cues. Further education required to improve knowledge and compliance with cardiac disease management, diabetic care management, fall prevention/home safety strategies, incision/wound care management, medication management, nutrition and pulmonary disease management. Maintenance COPD Description: Reinforce Acute and Sub-acute management education. Instruct on review zone sheet, nutrition in relation to COPD management, energy conservation, pacing activities, independence in ADLs vs what caregiver should be helping with, home exercise, additional COPD resources available like chronic care clinics as found in the COPD binder. Problem:SN COPD Goal:Improved management of COPD Completed Reinforced Acute and Sub-acute management education. patient reinforced on zone sheet, nutrition in relation to COPD management and energy conservation pacing activities and Romeo in ADLs vs what caregiver should be helping with as found in the COPD binder. Sub-acute COPD Description: Reinforce Acute COPD management education. Instruct on zone sheet, methods to reduce infection risks, anxiety management including relaxation techniques, importance of sleep, stress reduction, and coping strategies for living with COPD as found in the COPD binder. Problem:SN COPD Goal:Improved management of COPD Completed Reinforced Acute COPD management education. patient reinforced on zone sheet, methods to reduce infection risks, anxiety management including: relaxation techniques, importance of sleep and stress reduction and coping strategies for living with COPD as found in the COPD binder. Acute COPD Description: Instruct on defintion of COPD, signs and symptoms of COPD exacerbation, use of zone sheet, use of MDIs, difference between rescue vs maintenance inhalers, use of nebulizer, smoking cessation, breathing management including pursed lip breathing, diaphragmatic breathing, positioning to reduce SOB, controlled coughing, use of incentive spirometer, and use of acapela as found in the COPD binder. Problem:SN COPD Goal:Improved management of COPD Completed patient reinforced on defintion of COPD, signs and symptoms of COPD exacerbation, use of zone sheet, use of MDIs, difference between rescue vs maintenance inhalers, use of nebulizer, smoking cessation and breathing management: pursed lip breathing, diaphragmatic breathing, positioning to reduce SOB and use of incentive spirometer as found in the COPD binder. Continued need for Home Care Services Description: POC and certification renewed due to continuing [facility] needs. Problem:Recertificati on Goal:Ongoing review of POC and need for skilled services Com[facility] Visit Details Visit Type -SN ROUTINE Discipline -Half-Way Problems Problem Description Start Date Status Goals Interve ntions Medication Education Disciplines: Skilled Services 08/20/2022 Active 1 goal linked to scheduled/documen pawan intervention 1 goal intervention scheduled/document ed in this visit Sepsis Disciplines: Skilled Services 08/20/2022 Active 1 goal linked to scheduled/documen pawan intervention 1 goal intervention scheduled/document ed in this visit Physician Specific Parameters Disciplines: Skilled Services 08/20/2022 Active 1 goal linked to scheduled/documen pawan intervention 1 goal intervention scheduled/document ed in this visit Risk for Falls Disciplines: Skilled Services 08/20/2022 Active 1 goal linked to scheduled/documen pawan intervention 1 goal intervention scheduled/document ed in this visit Pain Disciplines: Skilled Services 08/20/2022 Active 1 goal linked to scheduled/documen pawan intervention 1 goal intervention scheduled/document ed in this visit Diabetic Foot Care Disciplines: Skilled Services 08/20/2022 Active 1 goal linked to scheduled/documen pawan intervention 1 goal intervention scheduled/document ed in this visit Oxygen Disciplines: Skilled Services 08/20/2022 Active 1 goal linked to scheduled/documen pawan intervention 1 goal intervention scheduled/document ed in this visit Nutrition/Hydration Disciplines: Skilled Services 08/20/2022 Active 1 goal linked to scheduled/documen pawan intervention 1 goal intervention scheduled/document ed in this visit High Risk Medications Disciplines: Skilled Services 08/20/2022 Active 1 goal linked to scheduled/documen pawan intervention 4 goal interventions scheduled/document ed in this visit Discharge Disciplines: Skilled Services 08/20/2022 Active 1 goal linked to scheduled/documen pawan intervention 1 goal intervention scheduled/document ed in this visit Advance Directives Disciplines: Skilled Services 08/20/2022 Active 1 goal linked to scheduled/documen pawan intervention 1 goal intervention scheduled/document ed in this visit SN Edema Disciplines: SN 08/20/2022 Active 1 goal linked to scheduled/documen pawan intervention 1 goal intervention scheduled/document ed in this visit SN Integumentary/Wound s Disciplines: SN 08/20/2022 Active 1 goal linked to scheduled/documen pawan intervention 3 goal interventions scheduled/document ed in this visit SN Diabetes Disciplines: SN 08/20/2022 Active 1 goal linked to scheduled/documen pawan intervention 1 goal intervention scheduled/document ed in this visit SN Cardiovascular Condition Disciplines: SN 08/20/2022 Active 1 goal linked to scheduled/documen pawan intervention 1 goal intervention scheduled/document ed in this visit SN Learning Assessment Disciplines: SN 08/20/2022 Active 1 goal linked to scheduled/documen pawan intervention 1 goal intervention scheduled/document ed in this visit SN COPD Disciplines: SN 09/22/2022 Active 1 goal linked to scheduled/documen pawan intervention 3 goal interventions scheduled/document ed in this visit Recertification Disciplines: Skilled Services 10/17/2022 Active 1 goal linked to scheduled/documen pawan intervention 1 goal intervention scheduled/document ed in this visit Goals Goal Associated Problem Outcome Goal Met? Visit Notes Patient/caregiver will demonstrate ability to obtain, store, identify and administer ordered medications, keep accurate medication list in home, and adhere to medication schedule Description: Patient/caregiver will demonstrate ability to obtain, store, identify and administer ordered medications, keep accurate medication list in home, and adhere to medication schedule by 12/17/22. Medication Education No Patient/caregiver will be able to identify and report symptoms of sepsis Description: Patient/caregiver will be able to identify signs/symptoms of sepsis infection and will verbalize actions to take if suspected by 12/17/22. Sepsis No Patient to maintain parameters within physician-specified ranges throughout certification period Physician Specific Parameters No Manage Risk for falls Description: Patient/caregiver will verbalize knowledge of individualized fall prevention strategies by 12/17/22. Risk for Falls No Manage Pain Description: Patient/caregiver will verbalize knowledge and understanding of appropriate techniques to control pain, including pain medication and non-pharmacological techniques. Patient will verbalize or demonstrate an acceptable level of pain as evidenced by a pain score of 0-3/10 and improvement in ability to perform activities of daily living to be achieved by 12/17/22. Pain No Manage diabetic foot care Description: Patient/caregiver will demonstrate basic understanding of and compliance with diabetic self-care management as evidenced by verbalizing purpose of daily foot care and assessment by . Diabetic Foot Care No Manage oxygen Description: Patient/caregiver will use oxygen safely and effectively in home by verbalizing and demonstrating oxygen safety by 12/17/22. Oxygen No Manage Nutrition/Hydration Description: Patient/caregiver will verbalize/demonstrate knowledge of prescribed diet and/or healthy nutrition to be achieved by 12/17/22. Nutrition/Hydration No Patient/caregiver will teach back high risk medication side effect and precaution education High Risk Medications No Manage discharge planning Description: Patient/caregiver will verbalize understanding of ongoing discharge plan provided related to disease management, arrangements for outpatient and/or community services, obtaining medications, supplies, and DME, as needed throughout certification period. Discharge No Patient/caregiver will make healthcare providers aware of and any changes to Advance Directives throughout certification period Advance Directives No Patient will have improved edema management Description: Patient/caregiver will demonstrate an understanding of edema management strategies as evidenced by resolution or stabilization of edema by 12-17-22. SN Edema No Patient/Caregiver will have improved healing and be free of signs and symptoms of complications Description: Patient/caregiver will verbalize management strategies to promote wound healing & prevent complications as evidenced by improved healing & no complications by 12-17-22. SN Integumentary/Wounds No Improved management of diabetes Description: Improve diabetic management as evidenced by patient/caregiver able to teach back diabetic management strategies by 12/17/22. SN Diabetes No Improved management of cardiovascular disease Description: Improve patient/caregiver management of cardiac disease as evidenced by patient/caregiver ability to teach back cardiac management strategies by . SN Cardiovascular Condition No Demonstrate understanding of education Description: Patient and/or caregiver will verbalize understanding of educational instruction provided throughout certification period. SN Learning Assessment No Improved management of COPD Description: Improve COPD management as evidenced by decreased reports of dyspnea, medication compliance, and patient able to teach back strategies to manage condition. Goal to be achieved by 12-17-22 SN COPD No Ongoing review of POC and need for skilled services Recertification No Interventions Intervention Associated Problem/Goal Status Variance Visit Notes Medication Education Description: Evaluate/instruct patient/caregiver on obtaining, storing, identifying and administering ordered medications as well as keeping accurate medication list in the home and adhereing to medication schedule Problem:Medication Education Goal:Patient/caregive r will demonstrate ability to obtain, store, identify and administer ordered medications, keep accurate medication list in home, and adhere to medication schedule Completed Patient instructed on importance of keeping accurate medication list in home, adhering to medication schedule and proper storage of medications. Risk of Sepsis Description: Patient is at risk for sepsis. Monitor closely for s/s of sepsis. Problem:Sepsis Goal:Patient/caregive r will be able to identify and report symptoms of sepsis Completed SPO2 Description: Notify if pulse ox is <92% at rest. Problem:Physician Specific Parameters Goal:Patient to maintain parameters within physician-specified ranges throughout certification period Completed Instruct on individual fall risk factors and strategies to prevent falls and injuries caused by falls. Problem:Risk for Falls Goal:Manage Risk for falls Completed SN: Patient instructed on Eliminating Environmental Hazards: Keep pathways clear, Keep pets out of pathways, Keep rooms and walkways well lit, Wear supportive shoes or non-skid socks and Keep frequently used items within reach Instruct on pain and instruct on strategies to control pain Problem:Pain Goal:Manage Pain Completed patient instructed on techniques to control pain including Pharmacological measures and Non-Pharmacological measures; rest, positioning/elevation, mobility/therapeutic exercise, distraction and breathing/relaxation. Monitor lower extremities for skin lesions and educate on proper foot care Problem:Diabetic Foot Care Goal:Manage diabetic foot care Completed patient instructed on diabetic foot care including daily skin inspection, wearing proper footwear/avoiding going barefoot, wash/dry feet thoroughly, applying moisturizer, avoiding between toes and toenail care. Instruct on fire safety and safe and effective use of oxygen in the home Problem:Oxygen Goal:Manage oxygen Completed patient instructed on: findings of safety risk assessment, causes of fires, firerisks for neighboring residences and buildings, precautions that can prevent fire-related injuries and recommendations for specific safety risks identified in the home: maintenance of working smoke detectors and changing batteries, establishment of fire escape plan, telephone accessibility and implementation of no-smoking policy in home, including e-cigarettes and posting of No-Smoking signs on entrance doors patient demonstrate compliance with safety recommendations. Define patient s appetite/hydration status and implement strategies to improve compliance with prescribed diet and/or healthy nutrition. Problem:Nutrition/Hyd ration Goal:Manage Nutrition/Hydration Completed reinforced patient on implementing strategies to comply with prescribed diet, healthy nutrition and adequate hydration Opioids- educated on high risk medication Problem:High Risk Medications Goal:Patient/caregive r will teach back high risk medication side effect and precaution education Completed patient educated on taking medication(s) as prescribed by provider. Do not stop medication or alter doses without speaking with your provider. Discuss medication effectiveness or side effect concerns with your provider and home care team. Only take opioids as prescribed, do not share your medications, and take proper precautions in storing and properly disposing of opioids once no longer needed. Possible side effects of opioid medication including sedation, decreased rate of breathing, and constipation. Report over sedation to prescribing provider and practice deep breathing techniques every hour while awake. Prevent constipation by increasing water and fiber intake, increasing activity as tolerated, and use stool softener(s) as prescribed. Hypoglycemic (including insulin)- educated on high risk medication Problem:High Risk Medications Goal:Patient/caregive r will teach back high risk medication side effect and precaution education Completed patient educated on taking medication(s) as prescribed by provider. Do not stop medication or skip/alter doses without speaking with your provider. Discuss medication effectiveness or side effect concerns with your provider and home care team. Check blood sugars and keep log as ordered by provider. Monitor for side effects of hypoglycemia such as increased weakness or shaking, moist skin, sweating, fast heartbeat, dizziness, sudden hunger, confusion, pale skin, numbness in mouth or tongue, irritability, nervousness, unsteadiness, nightmares, bad dreams, and restless sleep. Checking your blood sugar routinely and eating a consistent diabetic diet can help regulate blood sugars and reduce side effects. Antiplatelet- educated on high risk medication Problem:High Risk Medications Goal:Patient/caregive r will teach back high risk medication side effect and precaution education Completed patient educated on taking medication(s) as prescribed by provider. Do not stop medication or alter doses without speaking with your provider. Discuss medication effectiveness or side effect concerns with your provider and home care team. Discuss all medications you are taking, even crkb-grz-ingduwe medicines, with your provider and pharmacist since many drugs can interact with antiplatelet medications. If you forget to take a dose, DO NOT take a double dose. Take the missed dose as soon as possible on the same day. DO NOT take a double dose the next day to make up for the missed dose. Watch for signs of abnormal or excessive bleeding and bruising (refer to Bleeding Precautions education). Call your health care provider right away if you suspect something is wrong. Antibiotic- educated on high risk medication Problem:High Risk Medications Goal:Patient/caregive r will teach back high risk medication side effect and precaution education Completed patient educated on taking medication(s) as prescribed by provider. Do not stop medication or alter doses without speaking with your provider. Discuss medication effectiveness or side effect concerns with your provider and home care team. Take the full dispensed amount even if you start feeling better, as bacteria can become resistant to antibiotic treatment if you do not finish your prescription. Common side effects are upset stomach and diarrhea. Take your antibiotics with food unless otherwise indicated to help with indigestion. Taking an rtdv-gqp-mqyeksq probiotic or eating yogurt with live and active cultures three times a day can help prevent antibiotic-associated diarrhea. Call your provider immediately if you develop rashes or hives as this could be a delayed allergic reaction. Seek emergency treatment if you develop severe allergic reaction symptoms such as mouth or tongue swelling. Instruct on ongoing discharge plan Problem:Discharge Goal:Manage discharge planning Completed Ongoing Discharge plan: Discharge plan discussed with patient including frequency and duration for home SN and plan for transition to: caregiver assistance. Determine patient's Advance Directive Status Description: Patient does not have advance directives. Patient/Caregiver declined Advance Directive information. Problem:Advance Directives Goal:Patient/caregive r will make healthcare providers aware of and any changes to Advance Directives throughout certification period Completed Discussed Advance Directives with Patient and/or Caregiver. Referred patient to Home Care handbook for further information on Healthcare DPOA & Living Will. Assess and instruct on measures to reduce edema Problem:SN Edema Goal:Patient will have improved edema management Completed patient instructed on elevation, compression, diet, medication compliance and benefits of activity. Wound Care: Perform wound care (1) Description: Wound Care Order: Wound location: perianal Wound type (etiology): abcess Order: Lightly pack perineal wound with Io doform, cover with gauze and ABD. Wash wound with soap and water or wound cleanser with each dressing change Frequency: daily Wound care to be completed by caregiver except for scheduled SN wound care visits. Measure wound/incision at least weekly. Okay to substitute comparable products from home care formulary. Problem:SN Integumentary/Wounds Goal:Patient/Caregive r will have improved healing and be free of signs and symptoms of complications Completed Completed by SN. Patient did tolerate well. Instruct patient/caregiver healing process and management measures to promote healing and avoid complications Problem:SN Integumentary/Wounds Goal:Patient/Caregive r will have improved healing and be free of signs and symptoms of complications Completed patient instructed on the following: healing process, signs and symptoms of infection, importance of good nutrition, importance of managing blood sugars, smoking cessation and when to report symptoms. Instruct Patient/Caregiver on wound/incision care procedure as ordered by physician Problem:SN Integumentary/Wounds Goal:Patient/Caregive r will have improved healing and be free of signs and symptoms of complications Completed patient instructed on wound care as ordered by Physician. Instruct on diabetes disease process and management of chronic condition Description: Patient has needs for education of diabetes. Problem:SN Diabetes Goal:Improved management of diabetes Completed patient assessed and reinforced on diabetes disease process, how food and insulin affect blood sugar, diet education, how to carb count, recogonizing s/s of hypoglycemia and hyperglycemia and managing sick days as found in the diabetes self-care booklets. Instruct on cardiovascular disease process and management of condition Description: Patient has following cardiac diagnosis(es): CAD. Problem:SN Cardiovascular Condition Goal:Improved management of cardiovascular disease Completed patient instructed on cardiac disease process, self monitoring & symptom reporting and Cardiac Diet. Instruct and educate on knowledge deficits Problem:SN Learning Assessment Goal:Demonstrate understanding of education Completed patient verbalize and/or demonstrate understanding of nursing education completed today. Education methods include: verbal cues and visual cues. Further education required to improve knowledge and compliance with cardiac disease management, diabetic care management, fall prevention/home safety strategies, incision/wound care management and nutrition. Maintenance COPD Description: Reinforce Acute and Sub-acute management education. Instruct on review zone sheet, nutrition in relation to COPD management, energy conservation, pacing activities, independence in ADLs vs what caregiver should be helping with, home exercise, additional COPD resources available like chronic care clinics as found in the COPD binder. Problem:SN COPD Goal:Improved management of COPD Completed Reinforced Acute and Sub-acute management education. patient reinforced on zone sheet, nutrition in relation to COPD management and energy conservation pacing activities and Romeo in ADLs vs what caregiver should be helping with as found in the COPD binder. Sub-acute COPD Description: Reinforce Acute COPD management education. Instruct on zone sheet, methods to reduce infection risks, anxiety management including relaxation techniques, importance of sleep, stress reduction, and coping strategies for living with COPD as found in the COPD binder. Problem:SN COPD Goal:Improved management of COPD Completed Reinforced Acute COPD management education. patient reinforced on zone sheet, methods to reduce infection risks, anxiety management including: relaxation techniques, importance of sleep and stress reduction and coping strategies for living with COPD as found in the COPD binder. Acute COPD Description: Instruct on defintion of COPD, signs and symptoms of COPD exacerbation, use of zone sheet, use of MDIs, difference between rescue vs maintenance inhalers, use of nebulizer, smoking cessation, breathing management including pursed lip breathing, diaphragmatic breathing, positioning to reduce SOB, controlled coughing, use of incentive spirometer, and use of acapela as found in the COPD binder. Problem:SN COPD Goal:Improved management of COPD Completed patient reinforced on defintion of COPD, signs and symptoms of COPD exacerbation, use of zone sheet, use of MDIs, difference between rescue vs maintenance inhalers, use of nebulizer, smoking cessation and breathing management: pursed lip breathing, diaphragmatic breathing, positioning to reduce SOB, controlled coughing and use of incentive spirometer as found in the COPD binder. Continued need for Home Care Services Description: POC and certification renewed due to continuing [facility] needs. Problem:Recertificati on Goal:Ongoing review of POC and need for skilled services Completed documented in this encounter [facility]'s home Plan of care note* Visit Details Visit Type -SN PRN VISIT Discipline -Half-Way Problems Problem Description Start Date Status Goals Interve ntions Sepsis Disciplines: Skilled Services 08/20/2022 Active 1 goal linked to scheduled/document ed intervention 1 goal intervention scheduled/document ed in this visit Physician Specific Parameters Disciplines: Skilled Services 08/20/2022 Active 1 goal linked to scheduled/document ed intervention 1 goal intervention scheduled/document ed in this visit SN Integumentary/ Wounds Disciplines: SN 08/20/2022 Active 1 goal linked to scheduled/document ed intervention 1 goal intervention scheduled/document ed in this visit SN Learning Assessment Disciplines: SN 08/20/2022 Active 1 goal linked to scheduled/document ed intervention 1 goal intervention scheduled/document ed in this visit SN COPD Disciplines: SN 09/22/2022 Active 1 goal linked to scheduled/document ed intervention 2 goal interventions scheduled/document ed in this visit SN Labwork Disciplines: SN 11/03/2022 Resolved on 11/04/2022 1 goal linked to scheduled/document ed intervention 1 goal intervention scheduled/document ed in this visit SN Labwork Disciplines: SN 11/04/2022 Resolved on 11/04/2022 1 goal linked to scheduled/document ed intervention 1 goal intervention scheduled/document ed in this visit Goals Goal Associated Problem Outcome Goal Met? Visit Notes Patient/caregiver will be able to identify and report symptoms of sepsis Description: Patient/caregiver will be able to identify signs/symptoms of sepsis infection and will verbalize actions to take if suspected by 12/17/22. Sepsis No Patient to maintain parameters within physician-specified ranges throughout certification period Physician Specific Parameters No Patient/Caregiver will have improved healing and be free of signs and symptoms of complications Description: Patient/caregiver will verbalize management strategies to promote wound healing & prevent complications as evidenced by improved healing & no complications by 12-17-22. SN Integumentary/Wounds No Demonstrate understanding of education Description: Patient and/or caregiver will verbalize understanding of educational instruction provided throughout certification period. SN Learning Assessment No Improved management of COPD Description: Improve COPD management as evidenced by decreased reports of dyspnea, medication compliance, and patient able to teach back strategies to manage condition. Goal to be achieved by 12-17-22 SN COPD No SN to obtain lab specimen without difficulty when ordered throughout certification period SN Labwork Completed Yes SN to obtain lab specimen without difficulty when ordered throughout certification period SN Labwork Completed Yes Interventions Intervention Associated Problem/Goal Status Variance Visit Notes Risk of Sepsis Description: Patient is at risk for sepsis. Monitor closely for s/s of sepsis. Problem:Sepsis Goal:Patient/caregi madeleine will be able to identify and report symptoms of sepsis Completed SPO2 Description: Notify if pulse ox is <92% at rest. Problem:Physician Specific Parameters Goal:Patient to maintain parameters within physician-specified ranges throughout certification period Completed Wound Care: Perform wound care (1) Description: Wound Care Order: Wound location: perianal Wound type (etiology): abcess Order: Lightly pack perineal wound with Io doform, cover with gauze and ABD. Wash wound with soap and water or wound cleanser with each dressing change Frequency: daily Wound care to be completed by caregiver except for scheduled SN wound care visits. Measure wound/incision at least weekly. Okay to substitute comparable products from home care formulary. Problem:SN Integumentary/Wound s Goal:Patient/Caregi madeleine will have improved healing and be free of signs and symptoms of complications Caregiver independent Instruct and educate on knowledge deficits Problem:SN Learning Assessment Goal:Demonstrate understanding of education Completed patient verbalize and/or demonstrate understanding of nursing education completed today. Education methods include: verbal cues. Further education required to improve knowledge and compliance with diabetic care management, fall prevention/home safety strategies, incision/wound care management, medication management, nutrition, oxygen safety, pain management and pulmonary disease management. Maintenance COPD Description: Reinforce Acute and Sub-acute management education. Instruct on review zone sheet, nutrition in relation to COPD management, energy conservation, pacing activities, independence in ADLs vs what caregiver should be helping with, home exercise, additional COPD resources available like chronic care clinics as found in the COPD binder. Problem:SN COPD Goal:Improved management of COPD Completed Reinforced Acute and Sub-acute management education. patient reinforced on energy conservation pacing activities as found in the COPD binder. Sub-acute COPD Description: Reinforce Acute COPD management education. Instruct on zone sheet, methods to reduce infection risks, anxiety management including relaxation techniques, importance of sleep, stress reduction, and coping strategies for living with COPD as found in the COPD binder. Problem:SN COPD Goal:Improved management of COPD Completed Reinforced Acute COPD management education. patient reinforced on coping strategies for living with COPD as found in the COPD binder. SN to obtain blood specimen (1) Description: Draw blood via venipuncture for TSH, T3-T4, CMP, CBC w/diff with a frequency of once on Thursday11/04/[address] Norris[address] . Dx code(s): E03.9, E11.9, Z51.81 *Patient does NOT have to fast. Problem:SN Labwork Goal:SN to obtain lab specimen without difficulty when ordered throughout certification period Completed SN to obtain blood specimen (1) Description: Draw blood via venipuncture for Hbg A1C with a frequency of once on Date: 11/04/22. Results to Dr iDllon Norris. Problem:SN Labwork Goal:SN to obtain lab specimen without difficulty when ordered throughout certification period Completed documented in this encounter [facility]'s home Plan of care note* Visit Details Visit Type -SN ROUTINE Discipline -Half-Way Problems Problem Description Start Date Status Goals Interve ntions Medication Education Disciplines: Skilled Services 08/20/2022 Active 1 goal linked to scheduled/documen pawan intervention 1 goal intervention scheduled/document ed in this visit Sepsis Disciplines: Skilled Services 08/20/2022 Active 1 goal linked to scheduled/documen pawan intervention 1 goal intervention scheduled/document ed in this visit Physician Specific Parameters Disciplines: Skilled Services 08/20/2022 Active 1 goal linked to scheduled/documen pawan intervention 1 goal intervention scheduled/document ed in this visit Risk for Falls Disciplines: Skilled Services 08/20/2022 Active 1 goal linked to scheduled/documen pawan intervention 1 goal intervention scheduled/document ed in this visit Pain Disciplines: Skilled Services 08/20/2022 Active 1 goal linked to scheduled/documen pawan intervention 1 goal intervention scheduled/document ed in this visit Diabetic Foot Care Disciplines: Skilled Services 08/20/2022 Active 1 goal linked to scheduled/documen pawan intervention 1 goal intervention scheduled/document ed in this visit Oxygen Disciplines: Skilled Services 08/20/2022 Active 1 goal linked to scheduled/documen pawan intervention 1 goal intervention scheduled/document ed in this visit Nutrition/Hydration Disciplines: Skilled Services 08/20/2022 Active 1 goal linked to scheduled/documen pawan intervention 1 goal intervention scheduled/document ed in this visit High Risk Medications Disciplines: Skilled Services 08/20/2022 Active 1 goal linked to scheduled/documen pawan intervention 4 goal interventions scheduled/document ed in this visit Discharge Disciplines: Skilled Services 08/20/2022 Active 1 goal linked to scheduled/documen pawan intervention 1 goal intervention scheduled/document ed in this visit Advance Directives Disciplines: Skilled Services 08/20/2022 Active 1 goal linked to scheduled/documen pawan intervention 1 goal intervention scheduled/document ed in this visit SN Edema Disciplines: SN 08/20/2022 Active 1 goal linked to scheduled/documen pawan intervention 1 goal intervention scheduled/document ed in this visit SN Integumentary/Wound s Disciplines: SN 08/20/2022 Active 1 goal linked to scheduled/documen pawan intervention 3 goal interventions scheduled/document ed in this visit SN Diabetes Disciplines: SN 08/20/2022 Active 1 goal linked to scheduled/documen pawan intervention 1 goal intervention scheduled/document ed in this visit SN Cardiovascular Condition Disciplines: SN 08/20/2022 Active 1 goal linked to scheduled/documen pawan intervention 1 goal intervention scheduled/document ed in this visit SN Learning Assessment Disciplines: SN 08/20/2022 Active 1 goal linked to scheduled/documen pawan intervention 1 goal intervention scheduled/document ed in this visit SN COPD Disciplines: SN 09/22/2022 Active 1 goal linked to scheduled/documen pawan intervention 3 goal interventions scheduled/document ed in this visit Recertification Disciplines: Skilled Services 10/17/2022 Active 1 goal linked to scheduled/documen pawan intervention 1 goal intervention scheduled/document ed in this visit Goals Goal Associated Problem Outcome Goal Met? Visit Notes Patient/caregiver will demonstrate ability to obtain, store, identify and administer ordered medications, keep accurate medication list in home, and adhere to medication schedule Description: Patient/caregiver will demonstrate ability to obtain, store, identify and administer ordered medications, keep accurate medication list in home, and adhere to medication schedule by 12/17/22. Medication Education No Patient/caregiver will be able to identify and report symptoms of sepsis Description: Patient/caregiver will be able to identify signs/symptoms of sepsis infection and will verbalize actions to take if suspected by 12/17/22. Sepsis No Patient to maintain parameters within physician-specified ranges throughout certification period Physician Specific Parameters No Manage Risk for falls Description: Patient/caregiver will verbalize knowledge of individualized fall prevention strategies by 12/17/22. Risk for Falls No Manage Pain Description: Patient/caregiver will verbalize knowledge and understanding of appropriate techniques to control pain, including pain medication and non-pharmacological techniques. Patient will verbalize or demonstrate an acceptable level of pain as evidenced by a pain score of 0-3/10 and improvement in ability to perform activities of daily living to be achieved by 12/17/22. Pain No Manage diabetic foot care Description: Patient/caregiver will demonstrate basic understanding of and compliance with diabetic self-care management as evidenced by verbalizing purpose of daily foot care and assessment by . Diabetic Foot Care No Manage oxygen Description: Patient/caregiver will use oxygen safely and effectively in home by verbalizing and demonstrating oxygen safety by 12/17/22. Oxygen No Manage Nutrition/Hydration Description: Patient/caregiver will verbalize/demonstrate knowledge of prescribed diet and/or healthy nutrition to be achieved by 12/17/22. Nutrition/Hydration No Patient/caregiver will teach back high risk medication side effect and precaution education High Risk Medications No Manage discharge planning Description: Patient/caregiver will verbalize understanding of ongoing discharge plan provided related to disease management, arrangements for outpatient and/or community services, obtaining medications, supplies, and DME, as needed throughout certification period. Discharge No Patient/caregiver will make healthcare providers aware of and any changes to Advance Directives throughout certification period Advance Directives No Patient will have improved edema management Description: Patient/caregiver will demonstrate an understanding of edema management strategies as evidenced by resolution or stabilization of edema by 12-17-22. SN Edema No Patient/Caregiver will have improved healing and be free of signs and symptoms of complications Description: Patient/caregiver will verbalize management strategies to promote wound healing & prevent complications as evidenced by improved healing & no complications by 12-17-22. SN Integumentary/Wounds No Improved management of diabetes Description: Improve diabetic management as evidenced by patient/caregiver able to teach back diabetic management strategies by 12/17/22. SN Diabetes No Improved management of cardiovascular disease Description: Improve patient/caregiver management of cardiac disease as evidenced by patient/caregiver ability to teach back cardiac management strategies by . SN Cardiovascular Condition No Demonstrate understanding of education Description: Patient and/or caregiver will verbalize understanding of educational instruction provided throughout certification period. SN Learning Assessment No Improved management of COPD Description: Improve COPD management as evidenced by decreased reports of dyspnea, medication compliance, and patient able to teach back strategies to manage condition. Goal to be achieved by 12-17-22 SN COPD No Ongoing review of POC and need for skilled services Recertification No Interventions Intervention Associated Problem/Goal Status Variance Visit Notes Medication Education Description: Evaluate/instruct patient/caregiver on obtaining, storing, identifying and administering ordered medications as well as keeping accurate medication list in the home and adhereing to medication schedule Problem:Medication Education Goal:Patient/caregive r will demonstrate ability to obtain, store, identify and administer ordered medications, keep accurate medication list in home, and adhere to medication schedule Completed Patient instructed on importance of keeping accurate medication list in home, adhering to medication schedule and proper storage of medications. Risk of Sepsis Description: Patient is at risk for sepsis. Monitor closely for s/s of sepsis. Problem:Sepsis Goal:Patient/caregive r will be able to identify and report symptoms of sepsis Completed SPO2 Description: Notify if pulse ox is <92% at rest. Problem:Physician Specific Parameters Goal:Patient to maintain parameters within physician-specified ranges throughout certification period Completed Instruct on individual fall risk factors and strategies to prevent falls and injuries caused by falls. Problem:Risk for Falls Goal:Manage Risk for falls Completed SN: Patient instructed on Eliminating Environmental Hazards: Keep pathways clear, Keep pets out of pathways, Keep rooms and walkways well lit, Wear supportive shoes or non-skid socks and Keep frequently used items within reach Instruct on pain and instruct on strategies to control pain Problem:Pain Goal:Manage Pain Completed patient instructed on techniques to control pain including Pharmacological measures and Non-Pharmacological measures; rest, positioning/elevation, mobility/therapeutic exercise, distraction, breathing/relaxation and use of DME/assistive devices. Monitor lower extremities for skin lesions and educate on proper foot care Problem:Diabetic Foot Care Goal:Manage diabetic foot care Completed patient instructed on diabetic foot care including daily skin inspection, wearing proper footwear/avoiding going barefoot, wash/dry feet thoroughly, applying moisturizer, avoiding between toes and toenail care. Instruct on fire safety and safe and effective use of oxygen in the home Problem:Oxygen Goal:Manage oxygen Completed patient instructed on: findings of safety risk assessment, causes of fires, firerisks for neighboring residences and buildings, precautions that can prevent fire-related injuries, oxygen safety as outlined in Home Care Patient Handbook and recommendations for specific safety risks identified in the home: maintenance of working smoke detectors and changing batteries, establishment of fire escape plan, telephone accessibility and implementation of no-smoking policy in home, including e-cigarettes and posting of No-Smoking signs on entrance doors patient demonstrate compliance with safety recommendations. Define patient s appetite/hydration status and implement strategies to improve compliance with prescribed diet and/or healthy nutrition. Problem:Nutrition/Hyd ration Goal:Manage Nutrition/Hydration Completed reinforced patient on implementing strategies to comply with prescribed diet, healthy nutrition and adequate hydration Opioids- educated on high risk medication Problem:High Risk Medications Goal:Patient/caregive r will teach back high risk medication side effect and precaution education Completed patient educated on taking medication(s) as prescribed by provider. Do not stop medication or alter doses without speaking with your provider. Discuss medication effectiveness or side effect concerns with your provider and home care team. Only take opioids as prescribed, do not share your medications, and take proper precautions in storing and properly disposing of opioids once no longer needed. Possible side effects of opioid medication including sedation, decreased rate of breathing, and constipation. Report over sedation to prescribing provider and practice deep breathing techniques every hour while awake. Prevent constipation by increasing water and fiber intake, increasing activity as tolerated, and use stool softener(s) as prescribed. Hypoglycemic (including insulin)- educated on high risk medication Problem:High Risk Medications Goal:Patient/caregive r will teach back high risk medication side effect and precaution education Completed patient educated on taking medication(s) as prescribed by provider. Do not stop medication or skip/alter doses without speaking with your provider. Discuss medication effectiveness or side effect concerns with your provider and home care team. Check blood sugars and keep log as ordered by provider. Monitor for side effects of hypoglycemia such as increased weakness or shaking, moist skin, sweating, fast heartbeat, dizziness, sudden hunger, confusion, pale skin, numbness in mouth or tongue, irritability, nervousness, unsteadiness, nightmares, bad dreams, and restless sleep. Checking your blood sugar routinely and eating a consistent diabetic diet can help regulate blood sugars and reduce side effects. Antiplatelet- educated on high risk medication Problem:High Risk Medications Goal:Patient/caregive r will teach back high risk medication side effect and precaution education Completed patient educated on taking medication(s) as prescribed by provider. Do not stop medication or alter doses without speaking with your provider. Discuss medication effectiveness or side effect concerns with your provider and home care team. Discuss all medications you are taking, even lpxb-uiy-vsmzdkc medicines, with your provider and pharmacist since many drugs can interact with antiplatelet medications. If you forget to take a dose, DO NOT take a double dose. Take the missed dose as soon as possible on the same day. DO NOT take a double dose the next day to make up for the missed dose. Watch for signs of abnormal or excessive bleeding and bruising (refer to Bleeding Precautions education). Call your health care provider right away if you suspect something is wrong. Antibiotic- educated on high risk medication Problem:High Risk Medications Goal:Patient/caregive r will teach back high risk medication side effect and precaution education Completed patient educated on taking medication(s) as prescribed by provider. Do not stop medication or alter doses without speaking with your provider. Discuss medication effectiveness or side effect concerns with your provider and home care team. Take the full dispensed amount even if you start feeling better, as bacteria can become resistant to antibiotic treatment if you do not finish your prescription. Common side effects are upset stomach and diarrhea. Take your antibiotics with food unless otherwise indicated to help with indigestion. Taking an trvv-mzm-fwvxxpi probiotic or eating yogurt with live and active cultures three times a day can help prevent antibiotic-associated diarrhea. Call your provider immediately if you develop rashes or hives as this could be a delayed allergic reaction. Seek emergency treatment if you develop severe allergic reaction symptoms such as mouth or tongue swelling. Instruct on ongoing discharge plan Problem:Discharge Goal:Manage discharge planning Completed Ongoing Discharge plan: Discharge plan discussed with Patient including frequency and duration for home SN and plan for transition to: caregiver assistance. Determine patient's Advance Directive Status Description: Patient does not have advance directives. Patient/Caregiver declined Advance Directive information. Problem:Advance Directives Goal:Patient/caregive r will make healthcare providers aware of and any changes to Advance Directives throughout certification period Completed Discussed Advance Directives with Patient and/or Caregiver. Referred patient to Home Care handbook for further information on Healthcare DPOA & Living Will. Assess and instruct on measures to reduce edema Problem:SN Edema Goal:Patient will have improved edema management Completed patient instructed on elevation, compression, diet, medication compliance and benefits of activity. Wound Care: Perform wound care (1) Description: Wound Care Order: Wound location: perianal Wound type (etiology): abcess Order: Lightly pack perineal wound with Io doform, cover with gauze and ABD. Wash wound with soap and water or wound cleanser with each dressing change Frequency: daily Wound care to be completed by caregiver except for scheduled SN wound care visits. Measure wound/incision at least weekly. Okay to substitute comparable products from home care formulary. Problem:SN Integumentary/Wounds Goal:Patient/Caregive r will have improved healing and be free of signs and symptoms of complications Completed Completed by SN. Patient did tolerate well. Instruct patient/caregiver healing process and management measures to promote healing and avoid complications Problem:SN Integumentary/Wounds Goal:Patient/Caregive r will have improved healing and be free of signs and symptoms of complications Completed patient instructed on the following: healing process, signs and symptoms of infection, importance of good nutrition, importance of managing blood sugars, smoking cessation and when to report symptoms. Instruct Patient/Caregiver on wound/incision care procedure as ordered by physician Problem:SN Integumentary/Wounds Goal:Patient/Caregive r will have improved healing and be free of signs and symptoms of complications Completed patient instructed on wound care as ordered by Physician. Instruct on diabetes disease process and management of chronic condition Description: Patient has needs for education of diabetes. Problem:SN Diabetes Goal:Improved management of diabetes Completed patient assessed and reinforced on diabetes disease process, how to use blood sugar meter and logging readings, diet education, how to carb count and recogonizing s/s of hypoglycemia and hyperglycemia as found in the diabetes self-care booklets. Instruct on cardiovascular disease process and management of condition Description: Patient has following cardiac diagnosis(es): CAD. Problem:SN Cardiovascular Condition Goal:Improved management of cardiovascular disease Completed patient instructed on cardiac disease process and self monitoring & symptom reporting. Instruct and educate on knowledge deficits Problem:SN Learning Assessment Goal:Demonstrate understanding of education Completed patient verbalize and/or demonstrate understanding of nursing education completed today. Education methods include: verbal cues and teach back. Further education required to improve knowledge and compliance with cardiac disease management, diabetic care management, fall prevention/home safety strategies, incision/wound care management, integumentary care management, medication management and nutrition. Maintenance COPD Description: Reinforce Acute and Sub-acute management education. Instruct on review zone sheet, nutrition in relation to COPD management, energy conservation, pacing activities, independence in ADLs vs what caregiver should be helping with, home exercise, additional COPD resources available like chronic care clinics as found in the COPD binder. Problem:SN COPD Goal:Improved management of COPD Completed Reinforced Acute and Sub-acute management education. patient reinforced on zone sheet, nutrition in relation to COPD management and energy conservation pacing activities, Romeo in ADLs vs what caregiver should be helping with and home exercise as found in the COPD binder. Sub-acute COPD Description: Reinforce Acute COPD management education. Instruct on zone sheet, methods to reduce infection risks, anxiety management including relaxation techniques, importance of sleep, stress reduction, and coping strategies for living with COPD as found in the COPD binder. Problem:SN COPD Goal:Improved management of COPD Completed Reinforced Acute COPD management education. patient reinforced on zone sheet, methods to reduce infection risks, anxiety management including: relaxation techniques, importance of sleep and stress reduction and coping strategies for living with COPD as found in the COPD binder. Acute COPD Description: Instruct on defintion of COPD, signs and symptoms of COPD exacerbation, use of zone sheet, use of MDIs, difference between rescue vs maintenance inhalers, use of nebulizer, smoking cessation, breathing management including pursed lip breathing, diaphragmatic breathing, positioning to reduce SOB, controlled coughing, use of incentive spirometer, and use of acapela as found in the COPD binder. Problem:SN COPD Goal:Improved management of COPD Completed patient reinforced on defintion of COPD, signs and symptoms of COPD exacerbation, use of zone sheet, use of MDIs, difference between rescue vs maintenance inhalers, use of nebulizer, smoking cessation and breathing management: pursed lip breathing, diaphragmatic breathing, positioning to reduce SOB, controlled coughing and use of incentive spirometer as found in the COPD binder. Continued need for Home Care Services Description: POC and certification renewed due to continuing [facility] needs. Problem:Recertificati on Goal:Ongoing review of POC and need for skilled services Com[facility] Visit Details Visit Type -SN PRN VISIT Discipline -Half-Way Problems Problem Description Start Date Status Goals Interve ntions Medication Education Disciplines: Skilled Services 08/20/2022 Active 1 goal linked to scheduled/document ed intervention 1 goal intervention scheduled/documente d in this visit Sepsis Disciplines: Skilled Services 08/20/2022 Active 1 goal linked to scheduled/document ed intervention 1 goal intervention scheduled/documente d in this visit Physician Specific Parameters Disciplines: Skilled Services 08/20/2022 Active 1 goal linked to scheduled/document ed intervention 1 goal intervention scheduled/documente d in this visit Risk for Falls Disciplines: Skilled Services 08/20/2022 Active 1 goal linked to scheduled/document ed intervention 1 goal intervention scheduled/documente d in this visit Diabetic Foot Care Disciplines: Skilled Services 08/20/2022 Active 1 goal linked to scheduled/document ed intervention 1 goal intervention scheduled/documente d in this visit High Risk Medications Disciplines: Skilled Services 08/20/2022 Active 1 goal linked to scheduled/document ed intervention 1 goal intervention scheduled/documente d in this visit SN Learning Assessment Disciplines: SN 08/20/2022 Active 1 goal linked to scheduled/document ed intervention 1 goal intervention scheduled/documente d in this visit SN COPD Disciplines: SN 09/22/2022 Active 1 goal linked to scheduled/document ed intervention 1 goal intervention scheduled/documente d in this visit SN Integumentary/W ounds Disciplines: SN 11/09/2022 Active 1 goal linked to scheduled/document ed intervention 2 goal interventions scheduled/documente d in this visit Goals Goal Associated Problem Outcome Goal Met? Visit Notes Patient/caregiver will demonstrate ability to obtain, store, identify and administer ordered medications, keep accurate medication list in home, and adhere to medication schedule Description: Patient/caregiver will demonstrate ability to obtain, store, identify and administer ordered medications, keep accurate medication list in home, and adhere to medication schedule by 12/17/22. Medication Education No Patient/caregiver will be able to identify and report symptoms of sepsis Description: Patient/caregiver will be able to identify signs/symptoms of sepsis infection and will verbalize actions to take if suspected by 12/17/22. Sepsis No Patient to maintain parameters within physician-specified ranges throughout certification period Physician Specific Parameters No Manage Risk for falls Description: Patient/caregiver will verbalize knowledge of individualized fall prevention strategies by 12/17/22. Risk for Falls No Manage diabetic foot care Description: Patient/caregiver will demonstrate basic understanding of and compliance with diabetic self-care management as evidenced by verbalizing purpose of daily foot care and assessment by . Diabetic Foot Care No Patient/caregiver will teach back high risk medication side effect and precaution education High Risk Medications No Demonstrate understanding of education Description: Patient and/or caregiver will verbalize understanding of educational instruction provided throughout certification period. SN Learning Assessment No Improved management of COPD Description: Improve COPD management as evidenced by decreased reports of dyspnea, medication compliance, and patient able to teach back strategies to manage condition. Goal to be achieved by 12-17-22 SN COPD No Patient/Caregiver will have improved healing and be free of signs and symptoms of complications Description: Patient/caregiver will verbalize management strategies to promote wound healing & prevent complications as evidenced by improved healing & no complications by 11/30/22. SN Integumentary/Wounds No Interventions Intervention Associated Problem/Goal Status Variance Visit Notes Medication Education Description: Evaluate/instruct patient/caregiver on obtaining, storing, identifying and administering ordered medications as well as keeping accurate medication list in the home and adhereing to medication schedule Problem:Medication Education Goal:Patient/caregive r will demonstrate ability to obtain, store, identify and administer ordered medications, keep accurate medication list in home, and adhere to medication schedule Completed Patient instructed on adhering to medication schedule and Medication, route, dose, frequency, purpose, and side effects of clindamycin medications. Risk of Sepsis Description: Patient is at risk for sepsis. Monitor closely for s/s of sepsis. Problem:Sepsis Goal:Patient/caregive r will be able to identify and report symptoms of sepsis Completed SPO2 Description: Notify if pulse ox is <92% at rest. Problem:Physician Specific Parameters Goal:Patient to maintain parameters within physician-specified ranges throughout certification period Completed Instruct on individual fall risk factors and strategies to prevent falls and injuries caused by falls. Problem:Risk for Falls Goal:Manage Risk for falls Completed SN: Patient instructed on Eliminating Environmental Hazards: Keep pathways clear Monitor lower extremities for skin lesions and educate on proper foot care Problem:Diabetic Foot Care Goal:Manage diabetic foot care Completed patient instructed on diabetic foot care including wearing proper footwear/avoiding going barefoot. Antibiotic- educated on high risk medication Problem:High Risk Medications Goal:Patient/caregive r will teach back high risk medication side effect and precaution education Completed patient educated on taking medication(s) as prescribed by provider. Do not stop medication or alter doses without speaking with your provider. Discuss medication effectiveness or side effect concerns with your provider and home care team. Take the full dispensed amount even if you start feeling better, as bacteria can become resistant to antibiotic treatment if you do not finish your prescription. Common side effects are upset stomach and diarrhea. Take your antibiotics with food unless otherwise indicated to help with indigestion. Taking an tyzn-lwb-bsijehu probiotic or eating yogurt with live and active cultures three times a day can help prevent antibiotic-associated diarrhea. Call your provider immediately if you develop rashes or hives as this could be a delayed allergic reaction. Seek emergency treatment if you develop severe allergic reaction symptoms such as mouth or tongue swelling. Instruct and educate on knowledge deficits Problem:SN Learning Assessment Goal:Demonstrate understanding of education Completed patient verbalize and/or demonstrate understanding of nursing education completed today. Education methods include: verbal cues and written instructions. Further education required to improve knowledge and compliance with diabetic care management, fall prevention/home safety strategies, incision/wound care management, medication management and pain management. Maintenance COPD Description: Reinforce Acute and Sub-acute management education. Instruct on review zone sheet, nutrition in relation to COPD management, energy conservation, pacing activities, independence in ADLs vs what caregiver should be helping with, home exercise, additional COPD resources available like chronic care clinics as found in the COPD binder. Problem:SN COPD Goal:Improved management of COPD Completed Reinforced Acute and Sub-acute management education. patient reinforced on energy conservation pacing activities as found in the COPD binder. Instruct patient/caregiver healing process and management measures to promote healing and avoid complications Problem:SN Integumentary/Wounds Goal:Patient/Caregive r will have improved healing and be free of signs and symptoms of complications Completed patient instructed on the following: healing process, signs and symptoms of infection and when to report symptoms. Instruct Patient/Caregiver on wound/incision care procedure as ordered by physician Description: L gluteal abscess care daily and as needed: Cleanse area in shower or with soap/water, cover with clean dry dressing and change each day and as needed for drainage. Continue this until no drainage present on dressing. Problem:SN Integumentary/Wounds Goal:Patient/Caregive r will have improved healing and be free of signs and symptoms of complications Completed patient instructed on wound care as ordered by Physician. [facility] Visit Details Visit Type -SN ROUTINE Discipline -Half-Way Problems Problem Description Start Date Status Goals Interve ntions Medication Education Disciplines: Skilled Services 08/20/2022 Active 1 goal linked to scheduled/documen pawan intervention 1 goal intervention scheduled/document ed in this visit Sepsis Disciplines: Skilled Services 08/20/2022 Active 1 goal linked to scheduled/documen pawan intervention 1 goal intervention scheduled/document ed in this visit Physician Specific Parameters Disciplines: Skilled Services 08/20/2022 Active 1 goal linked to scheduled/documen pawan intervention 1 goal intervention scheduled/document ed in this visit Risk for Falls Disciplines: Skilled Services 08/20/2022 Active 1 goal linked to scheduled/documen pawan intervention 1 goal intervention scheduled/document ed in this visit Pain Disciplines: Skilled Services 08/20/2022 Active 1 goal linked to scheduled/documen pawan intervention 1 goal intervention scheduled/document ed in this visit Diabetic Foot Care Disciplines: Skilled Services 08/20/2022 Active 1 goal linked to scheduled/documen pawan intervention 1 goal intervention scheduled/document ed in this visit Oxygen Disciplines: Skilled Services 08/20/2022 Active 1 goal linked to scheduled/documen pawan intervention 1 goal intervention scheduled/document ed in this visit Nutrition/Hydration Disciplines: Skilled Services 08/20/2022 Active 1 goal linked to scheduled/documen pawan intervention 1 goal intervention scheduled/document ed in this visit High Risk Medications Disciplines: Skilled Services 08/20/2022 Active 1 goal linked to scheduled/documen pawan intervention 4 goal interventions scheduled/document ed in this visit Discharge Disciplines: Skilled Services 08/20/2022 Active 1 goal linked to scheduled/documen pawan intervention 1 goal intervention scheduled/document ed in this visit Advance Directives Disciplines: Skilled Services 08/20/2022 Active 1 goal linked to scheduled/documen pawan intervention 1 goal intervention scheduled/document ed in this visit SN Edema Disciplines: SN 08/20/2022 Active 1 goal linked to scheduled/documen pawan intervention 1 goal intervention scheduled/document ed in this visit SN Integumentary/Wound s Disciplines: SN 08/20/2022 Active 1 goal linked to scheduled/documen pawan intervention 3 goal interventions scheduled/document ed in this visit SN Diabetes Disciplines: SN 08/20/2022 Active 1 goal linked to scheduled/documen pawan intervention 1 goal intervention scheduled/document ed in this visit SN Cardiovascular Condition Disciplines: SN 08/20/2022 Active 1 goal linked to scheduled/documen pawan intervention 1 goal intervention scheduled/document ed in this visit SN Learning Assessment Disciplines: SN 08/20/2022 Active 1 goal linked to scheduled/documen pawan intervention 1 goal intervention scheduled/document ed in this visit SN COPD Disciplines: SN 09/22/2022 Active 1 goal linked to scheduled/documen pawan intervention 3 goal interventions scheduled/document ed in this visit Recertification Disciplines: Skilled Services 10/17/2022 Active 1 goal linked to scheduled/documen pawan intervention 1 goal intervention scheduled/document ed in this visit SN Integumentary/Wound s Disciplines: SN 11/09/2022 Active 1 goal linked to scheduled/documen pawan intervention 2 goal interventions scheduled/document ed in this visit SN Integumentary/Wound s Disciplines: 11/11/2022 Active 1 goal linked to scheduled/documen pawan intervention 1 goal intervention scheduled/document ed in this visit Goals Goal Associated Problem Outcome Goal Met? Visit Notes Patient/caregiver will demonstrate ability to obtain, store, identify and administer ordered medications, keep accurate medication list in home, and adhere to medication schedule Description: Patient/caregiver will demonstrate ability to obtain, store, identify and administer ordered medications, keep accurate medication list in home, and adhere to medication schedule by 12/17/22. Medication Education No Patient/caregiver will be able to identify and report symptoms of sepsis Description: Patient/caregiver will be able to identify signs/symptoms of sepsis infection and will verbalize actions to take if suspected by 12/17/22. Sepsis No Patient to maintain parameters within physician-specified ranges throughout certification period Physician Specific Parameters No Manage Risk for falls Description: Patient/caregiver will verbalize knowledge of individualized fall prevention strategies by 12/17/22. Risk for Falls No Manage Pain Description: Patient/caregiver will verbalize knowledge and understanding of appropriate techniques to control pain, including pain medication and non-pharmacological techniques. Patient will verbalize or demonstrate an acceptable level of pain as evidenced by a pain score of 0-3/10 and improvement in ability to perform activities of daily living to be achieved by 12/17/22. Pain No Manage diabetic foot care Description: Patient/caregiver will demonstrate basic understanding of and compliance with diabetic self-care management as evidenced by verbalizing purpose of daily foot care and assessment by . Diabetic Foot Care No Manage oxygen Description: Patient/caregiver will use oxygen safely and effectively in home by verbalizing and demonstrating oxygen safety by 12/17/22. Oxygen No Manage Nutrition/Hydration Description: Patient/caregiver will verbalize/demonstrate knowledge of prescribed diet and/or healthy nutrition to be achieved by 12/17/22. Nutrition/Hydration No Patient/caregiver will teach back high risk medication side effect and precaution education High Risk Medications No Manage discharge planning Description: Patient/caregiver will verbalize understanding of ongoing discharge plan provided related to disease management, arrangements for outpatient and/or community services, obtaining medications, supplies, and DME, as needed throughout certification period. Discharge No Patient/caregiver will make healthcare providers aware of and any changes to Advance Directives throughout certification period Advance Directives No Patient will have improved edema management Description: Patient/caregiver will demonstrate an understanding of edema management strategies as evidenced by resolution or stabilization of edema by 12-17-22. SN Edema No Patient/Caregiver will have improved healing and be free of signs and symptoms of complications Description: Patient/caregiver will verbalize management strategies to promote wound healing & prevent complications as evidenced by improved healing & no complications by 12-17-22. SN Integumentary/Wounds No Improved management of diabetes Description: Improve diabetic management as evidenced by patient/caregiver able to teach back diabetic management strategies by 12/17/22. SN Diabetes No Improved management of cardiovascular disease Description: Improve patient/caregiver management of cardiac disease as evidenced by patient/caregiver ability to teach back cardiac management strategies by . SN Cardiovascular Condition No Demonstrate understanding of education Description: Patient and/or caregiver will verbalize understanding of educational instruction provided throughout certification period. SN Learning Assessment No Improved management of COPD Description: Improve COPD management as evidenced by decreased reports of dyspnea, medication compliance, and patient able to teach back strategies to manage condition. Goal to be achieved by 12-17-22 SN COPD No Ongoing review of POC and need for skilled services Recertification No Patient/Caregiver will have improved healing and be free of signs and symptoms of complications Description: Patient/caregiver will verbalize management strategies to promote wound healing & prevent complications as evidenced by improved healing & no complications by 11/30/22. SN Integumentary/Wounds No Patient/Caregiver will have improved healing and be free of signs and symptoms of complications Description: Patient/caregiver will verbalize management strategies to promote wound healing & prevent complications as evidenced by improved healing & no complications by 12-17-22. SN Integumentary/Wounds No Interventions Intervention Associated Problem/Goal Status Variance Visit Notes Medication Education Description: Evaluate/instruct patient/caregiver on obtaining, storing, identifying and administering ordered medications as well as keeping accurate medication list in the home and adhereing to medication schedule Problem:Medication Education Goal:Patient/caregive r will demonstrate ability to obtain, store, identify and administer ordered medications, keep accurate medication list in home, and adhere to medication schedule Completed Patient instructed on importance of keeping accurate medication list in home, adhering to medication schedule and proper storage of medications. Risk of Sepsis Description: Patient is at risk for sepsis. Monitor closely for s/s of sepsis. Problem:Sepsis Goal:Patient/caregive r will be able to identify and report symptoms of sepsis Completed SPO2 Description: Notify if pulse ox is <92% at rest. Problem:Physician Specific Parameters Goal:Patient to maintain parameters within physician-specified ranges throughout certification period Completed Instruct on individual fall risk factors and strategies to prevent falls and injuries caused by falls. Problem:Risk for Falls Goal:Manage Risk for falls Completed SN: Patient instructed on Eliminating Environmental Hazards: Keep pathways clear, Keep pets out of pathways, Keep rooms and walkways well lit, Wear supportive shoes or non-skid socks and Keep frequently used items within reach Instruct on pain and instruct on strategies to control pain Problem:Pain Goal:Manage Pain Completed patient instructed on techniques to control pain including Pharmacological measures and Non-Pharmacological measures; rest, positioning/elevation, mobility/therapeutic exercise, distraction, breathing/relaxation and use of DME/assistive devices. Monitor lower extremities for skin lesions and educate on proper foot care Problem:Diabetic Foot Care Goal:Manage diabetic foot care Completed patient instructed on diabetic foot care including daily skin inspection, wearing proper footwear/avoiding going barefoot, wash/dry feet thoroughly, applying moisturizer, avoiding between toes and toenail care. Instruct on fire safety and safe and effective use of oxygen in the home Problem:Oxygen Goal:Manage oxygen Completed patient instructed on: findings of safety risk assessment, causes of fires, firerisks for neighboring residences and buildings, precautions that can prevent fire-related injuries, oxygen safety as outlined in Home Care Patient Handbook and recommendations for specific safety risks identified in the home: maintenance of working smoke detectors and changing batteries, establishment of fire escape plan, telephone accessibility and implementation of no-smoking policy in home, including e-cigarettes and posting of No-Smoking signs on entrance doors patient and caregiver demonstrate compliance with safety recommendations. Define patient s appetite/hydration status and implement strategies to improve compliance with prescribed diet and/or healthy nutrition. Problem:Nutrition/Hyd ration Goal:Manage Nutrition/Hydration Completed reinforced patient on implementing strategies to comply with prescribed diet, healthy nutrition and adequate hydration Opioids- educated on high risk medication Problem:High Risk Medications Goal:Patient/caregive r will teach back high risk medication side effect and precaution education Completed patient educated on taking medication(s) as prescribed by provider. Do not stop medication or alter doses without speaking with your provider. Discuss medication effectiveness or side effect concerns with your provider and home care team. Only take opioids as prescribed, do not share your medications, and take proper precautions in storing and properly disposing of opioids once no longer needed. Possible side effects of opioid medication including sedation, decreased rate of breathing, and constipation. Report over sedation to prescribing provider and practice deep breathing techniques every hour while awake. Prevent constipation by increasing water and fiber intake, increasing activity as tolerated, and use stool softener(s) as prescribed. Hypoglycemic (including insulin)- educated on high risk medication Problem:High Risk Medications Goal:Patient/caregive r will teach back high risk medication side effect and precaution education Completed patient educated on taking medication(s) as prescribed by provider. Do not stop medication or skip/alter doses without speaking with your provider. Discuss medication effectiveness or side effect concerns with your provider and home care team. Check blood sugars and keep log as ordered by provider. Monitor for side effects of hypoglycemia such as increased weakness or shaking, moist skin, sweating, fast heartbeat, dizziness, sudden hunger, confusion, pale skin, numbness in mouth or tongue, irritability, nervousness, unsteadiness, nightmares, bad dreams, and restless sleep. Checking your blood sugar routinely and eating a consistent diabetic diet can help regulate blood sugars and reduce side effects. Antiplatelet- educated on high risk medication Problem:High Risk Medications Goal:Patient/caregive r will teach back high risk medication side effect and precaution education Completed patient educated on taking medication(s) as prescribed by provider. Do not stop medication or alter doses without speaking with your provider. Discuss medication effectiveness or side effect concerns with your provider and home care team. Discuss all medications you are taking, even rcit-flb-vdxuxqh medicines, with your provider and pharmacist since many drugs can interact with antiplatelet medications. If you forget to take a dose, DO NOT take a double dose. Take the missed dose as soon as possible on the same day. DO NOT take a double dose the next day to make up for the missed dose. Watch for signs of abnormal or excessive bleeding and bruising (refer to Bleeding Precautions education). Call your health care provider right away if you suspect something is wrong. Antibiotic- educated on high risk medication Problem:High Risk Medications Goal:Patient/caregive r will teach back high risk medication side effect and precaution education Completed patient educated on taking medication(s) as prescribed by provider. Do not stop medication or alter doses without speaking with your provider. Discuss medication effectiveness or side effect concerns with your provider and home care team. Take the full dispensed amount even if you start feeling better, as bacteria can become resistant to antibiotic treatment if you do not finish your prescription. Common side effects are upset stomach and diarrhea. Take your antibiotics with food unless otherwise indicated to help with indigestion. Taking an xekj-ksl-ujlqeas probiotic or eating yogurt with live and active cultures three times a day can help prevent antibiotic-associated diarrhea. Call your provider immediately if you develop rashes or hives as this could be a delayed allergic reaction. Seek emergency treatment if you develop severe allergic reaction symptoms such as mouth or tongue swelling. Instruct on ongoing discharge plan Problem:Discharge Goal:Manage discharge planning Completed Ongoing Discharge plan: Discharge plan discussed with patient including frequency and duration for home SN and plan for transition to: caregiver assistance. Determine patient's Advance Directive Status Description: Patient does not have advance directives. Patient/Caregiver declined Advance Directive information. Problem:Advance Directives Goal:Patient/caregive r will make healthcare providers aware of and any changes to Advance Directives throughout certification period Completed Discussed Advance Directives with Patient and/or Caregiver. Referred patient to Home Care handbook for further information on Healthcare DPOA & Living Will. Assess and instruct on measures to reduce edema Problem:SN Edema Goal:Patient will have improved edema management Completed patient instructed on elevation, compression, diet, medication compliance and benefits of activity. Wound Care: Perform wound care (1) Description: Wound Care Order: Wound location: perianal Wound type (etiology): abcess Order: Lightly pack perineal wound with Io doform, cover with gauze and ABD. Wash wound with soap and water or wound cleanser with each dressing change Frequency: daily Wound care to be completed by caregiver except for scheduled SN wound care visits. Measure wound/incision at least weekly. Okay to substitute comparable products from home care formulary. Problem:SN Integumentary/Wounds Goal:Patient/Caregive r will have improved healing and be free of signs and symptoms of complications Completed Completed by SN. Patient did tolerate well. Instruct patient/caregiver healing process and management measures to promote healing and avoid complications Problem:SN Integumentary/Wounds Goal:Patient/Caregive r will have improved healing and be free of signs and symptoms of complications Completed patient instructed on the following: healing process, signs and symptoms of infection, importance of good nutrition, importance of managing blood sugars, smoking cessation and when to report symptoms. Instruct Patient/Caregiver on wound/incision care procedure as ordered by physician Problem:SN Integumentary/Wounds Goal:Patient/Caregive r will have improved healing and be free of signs and symptoms of complications Completed patient instructed on and return demonstrated wound care as ordered by Physician. Instruct on diabetes disease process and management of chronic condition Description: Patient has needs for education of diabetes. Problem:SN Diabetes Goal:Improved management of diabetes Completed patient assessed and reinforced on diabetes disease process, diet education, how to carb count, recogonizing s/s of hypoglycemia and hyperglycemia and managing sick days as found in the diabetes self-care booklets. Instruct on cardiovascular disease process and management of condition Description: Patient has following cardiac diagnosis(es): CAD. Problem:SN Cardiovascular Condition Goal:Improved management of cardiovascular disease Completed patient instructed on cardiac disease process, self monitoring & symptom reporting and Cardiac Diet. Instruct and educate on knowledge deficits Problem:SN Learning Assessment Goal:Demonstrate understanding of education Completed patient verbalize and/or demonstrate understanding of nursing education completed today. Education methods include: verbal cues and teach back. Further education required to improve knowledge and compliance with cardiac disease management, diabetic care management, fall prevention/home safety strategies and incision/wound care management. Maintenance COPD Description: Reinforce Acute and Sub-acute management education. Instruct on review zone sheet, nutrition in relation to COPD management, energy conservation, pacing activities, independence in ADLs vs what caregiver should be helping with, home exercise, additional COPD resources available like chronic care clinics as found in the COPD binder. Problem:SN COPD Goal:Improved management of COPD Completed Reinforced Acute and Sub-acute management education. patient reinforced on zone sheet, nutrition in relation to COPD management and energy conservation pacing activities and Romeo in ADLs vs what caregiver should be helping with as found in the COPD binder. Sub-acute COPD Description: Reinforce Acute COPD management education. Instruct on zone sheet, methods to reduce infection risks, anxiety management including relaxation techniques, importance of sleep, stress reduction, and coping strategies for living with COPD as found in the COPD binder. Problem:SN COPD Goal:Improved management of COPD Completed Reinforced Acute COPD management education. patient reinforced on zone sheet, methods to reduce infection risks, anxiety management including: relaxation techniques and importance of sleep and coping strategies for living with COPD as found in the COPD binder. Acute COPD Description: Instruct on defintion of COPD, signs and symptoms of COPD exacerbation, use of zone sheet, use of MDIs, difference between rescue vs maintenance inhalers, use of nebulizer, smoking cessation, breathing management including pursed lip breathing, diaphragmatic breathing, positioning to reduce SOB, controlled coughing, use of incentive spirometer, and use of acapela as found in the COPD binder. Problem:SN COPD Goal:Improved management of COPD Completed patient reinforced on defintion of COPD, signs and symptoms of COPD exacerbation, use of zone sheet, use of MDIs, difference between rescue vs maintenance inhalers, use of nebulizer, smoking cessation and breathing management: pursed lip breathing, diaphragmatic breathing and positioning to reduce SOB as found in the COPD binder. Continued need for Home Care Services Description: POC and certification renewed due to continuing [facility] needs. Problem:Recertificati on Goal:Ongoing review of POC and need for skilled services Completed Instruct patient/caregiver healing process and management measures to promote healing and avoid complications Problem:SN Integumentary/Wounds Goal:Patient/Caregive r will have improved healing and be free of signs and symptoms of complications Completed patient instructed on the following: healing process, signs and symptoms of infection, importance of good nutrition, importance of managing blood sugars, smoking cessation and when to report symptoms. Instruct Patient/Caregiver on wound/incision care procedure as ordered by physician Description: L gluteal abscess care daily and as needed: Cleanse area in shower or with soap/water, cover with clean dry dressing and change each day and as needed for drainage. Continue this until no drainage present on dressing. Problem:SN Integumentary/Wounds Goal:Patient/Caregive r will have improved healing and be free of signs and symptoms of complications Completed patient instructed on and return demonstrated wound care as ordered by Physician. Wound Care: Perform wound care (2) Description: Wound Care Order: Wound location: left buttocks Wound type (etiology): abcess Order: cleanse with NS pat dry pack with idoforme packing. cover with dry dressing Frequency: 3xweek and PRN for soiled Wound care to be completed by patient except for scheduled SN wound care visits. Measure wound/incision at least weekly. Okay to substitute comparable products from home care formulary. Problem:SN Integumentary/Wounds Goal:Patient/Caregive r will have improved healing and be free of signs and symptoms of complications Completed Completed by SN. Patient did tolerate well. documented in this encounter [facility]'s home Plan of care note* Visit Details Visit Type -SN ROUTINE Discipline -Half-Way Problems Problem Description Start Date Status Goals Interve ntions Medication Education Disciplines: Skilled Services 08/20/2022 Active 1 goal linked to scheduled/documen pawan intervention 1 goal intervention scheduled/document ed in this visit Sepsis Disciplines: Skilled Services 08/20/2022 Active 1 goal linked to scheduled/documen pawan intervention 1 goal intervention scheduled/document ed in this visit Physician Specific Parameters Disciplines: Skilled Services 08/20/2022 Active 1 goal linked to scheduled/documen pawan intervention 1 goal intervention scheduled/document ed in this visit Risk for Falls Disciplines: Skilled Services 08/20/2022 Active 1 goal linked to scheduled/documen pawan intervention 1 goal intervention scheduled/document ed in this visit Pain Disciplines: Skilled Services 08/20/2022 Active 1 goal linked to scheduled/documen pawan intervention 1 goal intervention scheduled/document ed in this visit Diabetic Foot Care Disciplines: Skilled Services 08/20/2022 Active 1 goal linked to scheduled/documen pawan intervention 1 goal intervention scheduled/document ed in this visit Oxygen Disciplines: Skilled Services 08/20/2022 Active 1 goal linked to scheduled/documen pawan intervention 1 goal intervention scheduled/document ed in this visit Nutrition/Hydration Disciplines: Skilled Services 08/20/2022 Active 1 goal linked to scheduled/documen pawan intervention 1 goal intervention scheduled/document ed in this visit High Risk Medications Disciplines: Skilled Services 08/20/2022 Active 1 goal linked to scheduled/documen pawan intervention 4 goal interventions scheduled/document ed in this visit Discharge Disciplines: Skilled Services 08/20/2022 Active 1 goal linked to scheduled/documen pawan intervention 1 goal intervention scheduled/document ed in this visit Advance Directives Disciplines: Skilled Services 08/20/2022 Active 1 goal linked to scheduled/documen pawan intervention 1 goal intervention scheduled/document ed in this visit SN Edema Disciplines: SN 08/20/2022 Active 1 goal linked to scheduled/documen pawan intervention 1 goal intervention scheduled/document ed in this visit SN Integumentary/Wound s Disciplines: SN 08/20/2022 Active 1 goal linked to scheduled/documen pawan intervention 3 goal interventions scheduled/document ed in this visit SN Diabetes Disciplines: SN 08/20/2022 Active 1 goal linked to scheduled/documen pawan intervention 1 goal intervention scheduled/document ed in this visit SN Cardiovascular Condition Disciplines: SN 08/20/2022 Active 1 goal linked to scheduled/documen pawan intervention 1 goal intervention scheduled/document ed in this visit SN Learning Assessment Disciplines: SN 08/20/2022 Active 1 goal linked to scheduled/documen pawan intervention 1 goal intervention scheduled/document ed in this visit SN COPD Disciplines: SN 09/22/2022 Active 1 goal linked to scheduled/documen pawan intervention 3 goal interventions scheduled/document ed in this visit Recertification Disciplines: Skilled Services 10/17/2022 Active 1 goal linked to scheduled/documen pawan intervention 1 goal intervention scheduled/document ed in this visit SN Integumentary/Wound s Disciplines: SN 11/09/2022 Active 1 goal linked to scheduled/documen pawan intervention 2 goal interventions scheduled/document ed in this visit SN Integumentary/Wound s Disciplines: SN 11/11/2022 Active 1 goal linked to scheduled/documen pawan intervention 1 goal intervention scheduled/document ed in this visit Goals Goal Associated Problem Outcome Goal Met? Visit Notes Patient/caregiver will demonstrate ability to obtain, store, identify and administer ordered medications, keep accurate medication list in home, and adhere to medication schedule Description: Patient/caregiver will demonstrate ability to obtain, store, identify and administer ordered medications, keep accurate medication list in home, and adhere to medication schedule by 12/17/22. Medication Education No Patient/caregiver will be able to identify and report symptoms of sepsis Description: Patient/caregiver will be able to identify signs/symptoms of sepsis infection and will verbalize actions to take if suspected by 12/17/22. Sepsis No Patient to maintain parameters within physician-specified ranges throughout certification period Physician Specific Parameters No Manage Risk for falls Description: Patient/caregiver will verbalize knowledge of individualized fall prevention strategies by 12/17/22. Risk for Falls No Manage Pain Description: Patient/caregiver will verbalize knowledge and understanding of appropriate techniques to control pain, including pain medication and non-pharmacological techniques. Patient will verbalize or demonstrate an acceptable level of pain as evidenced by a pain score of 0-3/10 and improvement in ability to perform activities of daily living to be achieved by 12/17/22. Pain No Manage diabetic foot care Description: Patient/caregiver will demonstrate basic understanding of and compliance with diabetic self-care management as evidenced by verbalizing purpose of daily foot care and assessment by . Diabetic Foot Care No Manage oxygen Description: Patient/caregiver will use oxygen safely and effectively in home by verbalizing and demonstrating oxygen safety by 12/17/22. Oxygen No Manage Nutrition/Hydration Description: Patient/caregiver will verbalize/demonstrate knowledge of prescribed diet and/or healthy nutrition to be achieved by 12/17/22. Nutrition/Hydration No Patient/caregiver will teach back high risk medication side effect and precaution education High Risk Medications No Manage discharge planning Description: Patient/caregiver will verbalize understanding of ongoing discharge plan provided related to disease management, arrangements for outpatient and/or community services, obtaining medications, supplies, and DME, as needed throughout certification period. Discharge No Patient/caregiver will make healthcare providers aware of and any changes to Advance Directives throughout certification period Advance Directives No Patient will have improved edema management Description: Patient/caregiver will demonstrate an understanding of edema management strategies as evidenced by resolution or stabilization of edema by 12-17-22. SN Edema No Patient/Caregiver will have improved healing and be free of signs and symptoms of complications Description: Patient/caregiver will verbalize management strategies to promote wound healing & prevent complications as evidenced by improved healing & no complications by 12-17-22. SN Integumentary/Wounds No Improved management of diabetes Description: Improve diabetic management as evidenced by patient/caregiver able to teach back diabetic management strategies by 12/17/22. SN Diabetes No Improved management of cardiovascular disease Description: Improve patient/caregiver management of cardiac disease as evidenced by patient/caregiver ability to teach back cardiac management strategies by . SN Cardiovascular Condition No Demonstrate understanding of education Description: Patient and/or caregiver will verbalize understanding of educational instruction provided throughout certification period. SN Learning Assessment No Improved management of COPD Description: Improve COPD management as evidenced by decreased reports of dyspnea, medication compliance, and patient able to teach back strategies to manage condition. Goal to be achieved by 12-17-22 SN COPD No Ongoing review of POC and need for skilled services Recertification No Patient/Caregiver will have improved healing and be free of signs and symptoms of complications Description: Patient/caregiver will verbalize management strategies to promote wound healing & prevent complications as evidenced by improved healing & no complications by 11/30/22. SN Integumentary/Wounds No Patient/Caregiver will have improved healing and be free of signs and symptoms of complications Description: Patient/caregiver will verbalize management strategies to promote wound healing & prevent complications as evidenced by improved healing & no complications by 12-17-22. SN Integumentary/Wounds No Interventions Intervention Associated Problem/Goal Status Variance Visit Notes Medication Education Description: Evaluate/instruct patient/caregiver on obtaining, storing, identifying and administering ordered medications as well as keeping accurate medication list in the home and adhereing to medication schedule Problem:Medication Education Goal:Patient/caregive r will demonstrate ability to obtain, store, identify and administer ordered medications, keep accurate medication list in home, and adhere to medication schedule Completed Patient instructed on importance of keeping accurate medication list in home, adhering to medication schedule and proper storage of medications. Risk of Sepsis Description: Patient is at risk for sepsis. Monitor closely for s/s of sepsis. Problem:Sepsis Goal:Patient/caregive r will be able to identify and report symptoms of sepsis Completed SPO2 Description: Notify if pulse ox is <92% at rest. Problem:Physician Specific Parameters Goal:Patient to maintain parameters within physician-specified ranges throughout certification period Completed Instruct on individual fall risk factors and strategies to prevent falls and injuries caused by falls. Problem:Risk for Falls Goal:Manage Risk for falls Completed SN: Patient instructed on Eliminating Environmental Hazards: Keep pathways clear, Keep pets out of pathways, Keep rooms and walkways well lit, Wear supportive shoes or non-skid socks and Keep frequently used items within reach Instruct on pain and instruct on strategies to control pain Problem:Pain Goal:Manage Pain Completed patient instructed on techniques to control pain including Pharmacological measures and Non-Pharmacological measures; rest, positioning/elevation, mobility/therapeutic exercise, distraction, breathing/relaxation and use of DME/assistive devices. Monitor lower extremities for skin lesions and educate on proper foot care Problem:Diabetic Foot Care Goal:Manage diabetic foot care Completed patient instructed on diabetic foot care including daily skin inspection, wearing proper footwear/avoiding going barefoot, wash/dry feet thoroughly, applying moisturizer, avoiding between toes and toenail care. Instruct on fire safety and safe and effective use of oxygen in the home Problem:Oxygen Goal:Manage oxygen Completed patient instructed on: findings of safety risk assessment, causes of fires, firerisks for neighboring residences and buildings, precautions that can prevent fire-related injuries, oxygen safety as outlined in Home Care Patient Handbook and recommendations for specific safety risks identified in the home: maintenance of working smoke detectors and changing batteries, establishment of fire escape plan, telephone accessibility and implementation of no-smoking policy in home, including e-cigarettes and posting of No-Smoking signs on entrance doors patient demonstrate compliance with safety recommendations. Define patient s appetite/hydration status and implement strategies to improve compliance with prescribed diet and/or healthy nutrition. Problem:Nutrition/Hyd ration Goal:Manage Nutrition/Hydration Completed reinforced patient on implementing strategies to comply with prescribed diet, healthy nutrition and adequate hydration Opioids- educated on high risk medication Problem:High Risk Medications Goal:Patient/caregive r will teach back high risk medication side effect and precaution education Completed patient educated on taking medication(s) as prescribed by provider. Do not stop medication or alter doses without speaking with your provider. Discuss medication effectiveness or side effect concerns with your provider and home care team. Only take opioids as prescribed, do not share your medications, and take proper precautions in storing and properly disposing of opioids once no longer needed. Possible side effects of opioid medication including sedation, decreased rate of breathing, and constipation. Report over sedation to prescribing provider and practice deep breathing techniques every hour while awake. Prevent constipation by increasing water and fiber intake, increasing activity as tolerated, and use stool softener(s) as prescribed. Hypoglycemic (including insulin)- educated on high risk medication Problem:High Risk Medications Goal:Patient/caregive r will teach back high risk medication side effect and precaution education Completed patient educated on taking medication(s) as prescribed by provider. Do not stop medication or skip/alter doses without speaking with your provider. Discuss medication effectiveness or side effect concerns with your provider and home care team. Check blood sugars and keep log as ordered by provider. Monitor for side effects of hypoglycemia such as increased weakness or shaking, moist skin, sweating, fast heartbeat, dizziness, sudden hunger, confusion, pale skin, numbness in mouth or tongue, irritability, nervousness, unsteadiness, nightmares, bad dreams, and restless sleep. Checking your blood sugar routinely and eating a consistent diabetic diet can help regulate blood sugars and reduce side effects. Antiplatelet- educated on high risk medication Problem:High Risk Medications Goal:Patient/caregive r will teach back high risk medication side effect and precaution education Completed patient educated on taking medication(s) as prescribed by provider. Do not stop medication or alter doses without speaking with your provider. Discuss medication effectiveness or side effect concerns with your provider and home care team. Discuss all medications you are taking, even zocy-hwu-xqasrcm medicines, with your provider and pharmacist since many drugs can interact with antiplatelet medications. If you forget to take a dose, DO NOT take a double dose. Take the missed dose as soon as possible on the same day. DO NOT take a double dose the next day to make up for the missed dose. Watch for signs of abnormal or excessive bleeding and bruising (refer to Bleeding Precautions education). Call your health care provider right away if you suspect something is wrong. Antibiotic- educated on high risk medication Problem:High Risk Medications Goal:Patient/caregive r will teach back high risk medication side effect and precaution education Completed patient educated on taking medication(s) as prescribed by provider. Do not stop medication or alter doses without speaking with your provider. Discuss medication effectiveness or side effect concerns with your provider and home care team. Take the full dispensed amount even if you start feeling better, as bacteria can become resistant to antibiotic treatment if you do not finish your prescription. Common side effects are upset stomach and diarrhea. Take your antibiotics with food unless otherwise indicated to help with indigestion. Taking an [id number] probiotic or eating yogurt with live and active cultures three times a day can help prevent antibiotic-associated diarrhea. Call your provider immediately if you develop rashes or hives as this could be a delayed allergic reaction. Seek emergency treatment if you develop severe allergic reaction symptoms such as mouth or tongue swelling. Instruct on ongoing discharge plan Problem:Discharge Goal:Manage discharge planning Completed Ongoing Discharge plan: Discharge plan discussed with patient including frequency and duration for home SN and plan for transition to: caregiver assistance. Determine patient's Advance Directive Status Description: Patient does not have advance directives. Patient/Caregiver declined Advance Directive information. Problem:Advance Directives Goal:Patient/caregive r will make healthcare providers aware of and any changes to Advance Directives throughout certification period Completed Discussed Advance Directives with Patient and/or Caregiver. Referred patient to Home Care handbook for further information on Healthcare DPOA & Living Will. Assess and instruct on measures to reduce edema Problem:SN Edema Goal:Patient will have improved edema management Completed patient instructed on elevation, compression, diet, medication compliance and benefits of activity. Wound Care: Perform wound care (1) Description: Wound Care Order: Wound location: perianal Wound type (etiology): abcess Order: Lightly pack perineal wound with Io doform, cover with gauze and ABD. Wash wound with soap and water or wound cleanser with each dressing change Frequency: daily Wound care to be completed by caregiver except for scheduled SN wound care visits. Measure wound/incision at least weekly. Okay to substitute comparable products from home care formulary. Problem:SN Integumentary/Wounds Goal:Patient/Caregive r will have improved healing and be free of signs and symptoms of complications Completed Completed by SN. Patient did tolerate well. Instruct patient/caregiver healing process and management measures to promote healing and avoid complications Problem:SN Integumentary/Wounds Goal:Patient/Caregive r will have improved healing and be free of signs and symptoms of complications Completed patient instructed on the following: healing process, signs and symptoms of infection, importance of good nutrition, importance of managing blood sugars, smoking cessation and when to report symptoms. Instruct Patient/Caregiver on wound/incision care procedure as ordered by physician Problem:SN Integumentary/Wounds Goal:Patient/Caregive r will have improved healing and be free of signs and symptoms of complications Completed patient instructed on and return demonstrated wound care as ordered by Physician. Instruct on diabetes disease process and management of chronic condition Description: Patient has needs for education of diabetes. Problem:SN Diabetes Goal:Improved management of diabetes Completed patient assessed and reinforced on diabetes disease process, how food and insulin affect blood sugar, diet education, how to carb count, recogonizing s/s of hypoglycemia and hyperglycemia and managing sick days as found in the diabetes self-care booklets. Instruct on cardiovascular disease process and management of condition Description: Patient has following cardiac diagnosis(es): CAD. Problem:SN Cardiovascular Condition Goal:Improved management of cardiovascular disease Completed patient instructed on cardiac disease process, self monitoring & symptom reporting and Cardiac Diet. Instruct and educate on knowledge deficits Problem:SN Learning Assessment Goal:Demonstrate understanding of education Completed patient verbalize and/or demonstrate understanding of nursing education completed today. Education methods include: verbal cues and teach back. Further education required to improve knowledge and compliance with cardiac disease management, diabetic care management, fall prevention/home safety strategies, incision/wound care management, infection control precautions, medication management and nutrition. Maintenance COPD Description: Reinforce Acute and Sub-acute management education. Instruct on review zone sheet, nutrition in relation to COPD management, energy conservation, pacing activities, independence in ADLs vs what caregiver should be helping with, home exercise, additional COPD resources available like chronic care clinics as found in the COPD binder. Problem:SN COPD Goal:Improved management of COPD Completed Reinforced Acute and Sub-acute management education. patient reinforced on zone sheet, nutrition in relation to COPD management and energy conservation pacing activities, Romeo in ADLs vs what caregiver should be helping with and home exercise as found in the COPD binder. Sub-acute COPD Description: Reinforce Acute COPD management education. Instruct on zone sheet, methods to reduce infection risks, anxiety management including relaxation techniques, importance of sleep, stress reduction, and coping strategies for living with COPD as found in the COPD binder. Problem:SN COPD Goal:Improved management of COPD Completed Reinforced Acute COPD management education. patient reinforced on zone sheet, methods to reduce infection risks, anxiety management including: relaxation techniques, importance of sleep and stress reduction and coping strategies for living with COPD as found in the COPD binder. Acute COPD Description: Instruct on defintion of COPD, signs and symptoms of COPD exacerbation, use of zone sheet, use of MDIs, difference between rescue vs maintenance inhalers, use of nebulizer, smoking cessation, breathing management including pursed lip breathing, diaphragmatic breathing, positioning to reduce SOB, controlled coughing, use of incentive spirometer, and use of acapela as found in the COPD binder. Problem:SN COPD Goal:Improved management of COPD Completed patient reinforced on defintion of COPD, signs and symptoms of COPD exacerbation, use of zone sheet, use of MDIs, difference between rescue vs maintenance inhalers, use of nebulizer, smoking cessation and breathing management: pursed lip breathing, diaphragmatic breathing and positioning to reduce SOB as found in the COPD binder. Continued need for Home Care Services Description: POC and certification renewed due to continuing [facility] needs. Problem:Recertificati on Goal:Ongoing review of POC and need for skilled services Completed Instruct patient/caregiver healing process and management measures to promote healing and avoid complications Problem:SN Integumentary/Wounds Goal:Patient/Caregive r will have improved healing and be free of signs and symptoms of complications Completed patient instructed on the following: healing process, signs and symptoms of infection, importance of good nutrition, importance of managing blood sugars, smoking cessation and when to report symptoms. Instruct Patient/Caregiver on wound/incision care procedure as ordered by physician Description: L gluteal abscess care daily and as needed: Cleanse area in shower or with soap/water, cover with clean dry dressing and change each day and as needed for drainage. Continue this until no drainage present on dressing. Problem:SN Integumentary/Wounds Goal:Patient/Caregive r will have improved healing and be free of signs and symptoms of complications Completed patient instructed on and return demonstrated wound care as ordered by Physician. Wound Care: Perform wound care (2) Description: Wound Care Order: Wound location: left buttocks Wound type (etiology): abcess Order: cleanse with NS pat dry pack with idoforme packing. cover with dry dressing Frequency: 3xweek and PRN for soiled Wound care to be completed by patient except for scheduled SN wound care visits. Measure wound/incision at least weekly. Okay to substitute comparable products from home care formulary. Problem:SN Integumentary/Wounds Goal:Patient/Caregive r will have improved healing and be free of signs and symptoms of complications Completed Completed by SN. Patient did tolerate well. [facility] Visit Details Visit Type -SN ROUTINE Discipline -Half-Way Problems Problem Description Start Date Status Goals Interve ntions Medication Education Disciplines: Skilled Services 08/20/2022 Active 1 goal linked to scheduled/documen pawan intervention 1 goal intervention scheduled/document ed in this visit Sepsis Disciplines: Skilled Services 08/20/2022 Active 1 goal linked to scheduled/documen pawan intervention 1 goal intervention scheduled/document ed in this visit Physician Specific Parameters Disciplines: Skilled Services 08/20/2022 Active 1 goal linked to scheduled/documen pawan intervention 1 goal intervention scheduled/document ed in this visit Risk for Falls Disciplines: Skilled Services 08/20/2022 Active 1 goal linked to scheduled/documen pawan intervention 1 goal intervention scheduled/document ed in this visit Pain Disciplines: Skilled Services 08/20/2022 Active 1 goal linked to scheduled/documen pawan intervention 1 goal intervention scheduled/document ed in this visit Diabetic Foot Care Disciplines: Skilled Services 08/20/2022 Active 1 goal linked to scheduled/documen pawan intervention 1 goal intervention scheduled/document ed in this visit Oxygen Disciplines: Skilled Services 08/20/2022 Active 1 goal linked to scheduled/documen pawan intervention 1 goal intervention scheduled/document ed in this visit Nutrition/Hydration Disciplines: Skilled Services 08/20/2022 Active 1 goal linked to scheduled/documen pawan intervention 1 goal intervention scheduled/document ed in this visit High Risk Medications Disciplines: Skilled Services 08/20/2022 Active 1 goal linked to scheduled/documen pawan intervention 4 goal interventions scheduled/document ed in this visit Discharge Disciplines: Skilled Services 08/20/2022 Active 1 goal linked to scheduled/documen pawan intervention 1 goal intervention scheduled/document ed in this visit Advance Directives Disciplines: Skilled Services 08/20/2022 Active 1 goal linked to scheduled/documen pawan intervention 1 goal intervention scheduled/document ed in this visit SN Edema Disciplines: SN 08/20/2022 Active 1 goal linked to scheduled/documen pawan intervention 1 goal intervention scheduled/document ed in this visit SN Integumentary/Wound s Disciplines: SN 08/20/2022 Active 1 goal linked to scheduled/documen pawan intervention 3 goal interventions scheduled/document ed in this visit SN Diabetes Disciplines: SN 08/20/2022 Active 1 goal linked to scheduled/documen pawan intervention 1 goal intervention scheduled/document ed in this visit SN Cardiovascular Condition Disciplines: SN 08/20/2022 Active 1 goal linked to scheduled/documen pawan intervention 1 goal intervention scheduled/document ed in this visit SN Learning Assessment Disciplines: SN 08/20/2022 Active 1 goal linked to scheduled/documen pawan intervention 1 goal intervention scheduled/document ed in this visit SN COPD Disciplines: SN 09/22/2022 Active 1 goal linked to scheduled/documen pawan intervention 1 goal intervention scheduled/document ed in this visit Recertification Disciplines: Skilled Services 10/17/2022 Active 1 goal linked to scheduled/documen pawan intervention 1 goal intervention scheduled/document ed in this visit SN Integumentary/Wound s Disciplines: SN 11/09/2022 Active 1 goal linked to scheduled/documen pawan intervention 2 goal interventions scheduled/document ed in this visit SN Integumentary/Wound s Disciplines: SN 11/11/2022 Active 1 goal linked to scheduled/documen pawan intervention 1 goal intervention scheduled/document ed in this visit Goals Goal Associated Problem Outcome Goal Met? Visit Notes Patient/caregiver will demonstrate ability to obtain, store, identify and administer ordered medications, keep accurate medication list in home, and adhere to medication schedule Description: Patient/caregiver will demonstrate ability to obtain, store, identify and administer ordered medications, keep accurate medication list in home, and adhere to medication schedule by 12/17/22. Medication Education No Patient/caregiver will be able to identify and report symptoms of sepsis Description: Patient/caregiver will be able to identify signs/symptoms of sepsis infection and will verbalize actions to take if suspected by 12/17/22. Sepsis No Patient to maintain parameters within physician-specified ranges throughout certification period Physician Specific Parameters No Manage Risk for falls Description: Patient/caregiver will verbalize knowledge of individualized fall prevention strategies by 12/17/22. Risk for Falls No Manage Pain Description: Patient/caregiver will verbalize knowledge and understanding of appropriate techniques to control pain, including pain medication and non-pharmacological techniques. Patient will verbalize or demonstrate an acceptable level of pain as evidenced by a pain score of 0-3/10 and improvement in ability to perform activities of daily living to be achieved by 12/17/22. Pain No Manage diabetic foot care Description: Patient/caregiver will demonstrate basic understanding of and compliance with diabetic self-care management as evidenced by verbalizing purpose of daily foot care and assessment by . Diabetic Foot Care No Manage oxygen Description: Patient/caregiver will use oxygen safely and effectively in home by verbalizing and demonstrating oxygen safety by 12/17/22. Oxygen No Manage Nutrition/Hydration Description: Patient/caregiver will verbalize/demonstrate knowledge of prescribed diet and/or healthy nutrition to be achieved by 12/17/22. Nutrition/Hydration No Patient/caregiver will teach back high risk medication side effect and precaution education High Risk Medications No Manage discharge planning Description: Patient/caregiver will verbalize understanding of ongoing discharge plan provided related to disease management, arrangements for outpatient and/or community services, obtaining medications, supplies, and DME, as needed throughout certification period. Discharge No Patient/caregiver will make healthcare providers aware of and any changes to Advance Directives throughout certification period Advance Directives No Patient will have improved edema management Description: Patient/caregiver will demonstrate an understanding of edema management strategies as evidenced by resolution or stabilization of edema by 12-17-22. SN Edema No Patient/Caregiver will have improved healing and be free of signs and symptoms of complications Description: Patient/caregiver will verbalize management strategies to promote wound healing & prevent complications as evidenced by improved healing & no complications by 12-17-22. SN Integumentary/Wounds No Improved management of diabetes Description: Improve diabetic management as evidenced by patient/caregiver able to teach back diabetic management strategies by 12/17/22. SN Diabetes No Improved management of cardiovascular disease Description: Improve patient/caregiver management of cardiac disease as evidenced by patient/caregiver ability to teach back cardiac management strategies by . SN Cardiovascular Condition No Demonstrate understanding of education Description: Patient and/or caregiver will verbalize understanding of educational instruction provided throughout certification period. SN Learning Assessment No Improved management of COPD Description: Improve COPD management as evidenced by decreased reports of dyspnea, medication compliance, and patient able to teach back strategies to manage condition. Goal to be achieved by 12-17-22 SN COPD No Ongoing review of POC and need for skilled services Recertification No Patient/Caregiver will have improved healing and be free of signs and symptoms of complications Description: Patient/caregiver will verbalize management strategies to promote wound healing & prevent complications as evidenced by improved healing & no complications by 11/30/22. SN Integumentary/Wounds No Patient/Caregiver will have improved healing and be free of signs and symptoms of complications Description: Patient/caregiver will verbalize management strategies to promote wound healing & prevent complications as evidenced by improved healing & no complications by 12-17-22. SN Integumentary/Wounds No Interventions Intervention Associated Problem/Goal Status Variance Visit Notes Medication Education Description: Evaluate/instruct patient/caregiver on obtaining, storing, identifying and administering ordered medications as well as keeping accurate medication list in the home and adhereing to medication schedule Problem:Medication Education Goal:Patient/caregive r will demonstrate ability to obtain, store, identify and administer ordered medications, keep accurate medication list in home, and adhere to medication schedule Completed Patient instructed on importance of keeping accurate medication list in home, adhering to medication schedule and proper storage of medications. Risk of Sepsis Description: Patient is at risk for sepsis. Monitor closely for s/s of sepsis. Problem:Sepsis Goal:Patient/caregive r will be able to identify and report symptoms of sepsis Completed SPO2 Description: Notify if pulse ox is <92% at rest. Problem:Physician Specific Parameters Goal:Patient to maintain parameters within physician-specified ranges throughout certification period Completed Instruct on individual fall risk factors and strategies to prevent falls and injuries caused by falls. Problem:Risk for Falls Goal:Manage Risk for falls Completed SN: Patient instructed on Eliminating Environmental Hazards: Keep pathways clear, Keep pets out of pathways, Keep rooms and walkways well lit, Wear supportive shoes or non-skid socks and Keep frequently used items within reach Instruct on pain and instruct on strategies to control pain Problem:Pain Goal:Manage Pain Completed patient instructed on techniques to control pain including Pharmacological measures and Non-Pharmacological measures; rest, positioning/elevation, mobility/therapeutic exercise, distraction, breathing/relaxation and use of DME/assistive devices. Monitor lower extremities for skin lesions and educate on proper foot care Problem:Diabetic Foot Care Goal:Manage diabetic foot care Completed patient instructed on diabetic foot care including daily skin inspection, wearing proper footwear/avoiding going barefoot, wash/dry feet thoroughly, applying moisturizer, avoiding between toes and toenail care. Instruct on fire safety and safe and effective use of oxygen in the home Problem:Oxygen Goal:Manage oxygen Completed patient instructed on: findings of safety risk assessment, causes of fires, firerisks for neighboring residences and buildings, precautions that can prevent fire-related injuries and oxygen safety as outlined in Home Care Patient Handbook patient demonstrate compliance with safety recommendations. Define patient s appetite/hydration status and implement strategies to improve compliance with prescribed diet and/or healthy nutrition. Problem:Nutrition/Hyd ration Goal:Manage Nutrition/Hydration Completed reinforced patient on implementing strategies to comply with healthy nutrition and adequate hydration Opioids- educated on high risk medication Problem:High Risk Medications Goal:Patient/caregive r will teach back high risk medication side effect and precaution education Completed patient educated on taking medication(s) as prescribed by provider. Do not stop medication or alter doses without speaking with your provider. Discuss medication effectiveness or side effect concerns with your provider and home care team. Only take opioids as prescribed, do not share your medications, and take proper precautions in storing and properly disposing of opioids once no longer needed. Possible side effects of opioid medication including sedation, decreased rate of breathing, and constipation. Report over sedation to prescribing provider and practice deep breathing techniques every hour while awake. Prevent constipation by increasing water and fiber intake, increasing activity as tolerated, and use stool softener(s) as prescribed. Hypoglycemic (including insulin)- educated on high risk medication Problem:High Risk Medications Goal:Patient/caregive r will teach back high risk medication side effect and precaution education Completed patient educated on taking medication(s) as prescribed by provider. Do not stop medication or skip/alter doses without speaking with your provider. Discuss medication effectiveness or side effect concerns with your provider and home care team. Check blood sugars and keep log as ordered by provider. Monitor for side effects of hypoglycemia such as increased weakness or shaking, moist skin, sweating, fast heartbeat, dizziness, sudden hunger, confusion, pale skin, numbness in mouth or tongue, irritability, nervousness, unsteadiness, nightmares, bad dreams, and restless sleep. Checking your blood sugar routinely and eating a consistent diabetic diet can help regulate blood sugars and reduce side effects. Antiplatelet- educated on high risk medication Problem:High Risk Medications Goal:Patient/caregive r will teach back high risk medication side effect and precaution education Completed patient educated on taking medication(s) as prescribed by provider. Do not stop medication or alter doses without speaking with your provider. Discuss medication effectiveness or side effect concerns with your provider and home care team. Discuss all medications you are taking, even [id number] medicines, with your provider and pharmacist since many drugs can interact with antiplatelet medications. If you forget to take a dose, DO NOT take a double dose. Take the missed dose as soon as possible on the same day. DO NOT take a double dose the next day to make up for the missed dose. Watch for signs of abnormal or excessive bleeding and bruising (refer to Bleeding Precautions education). Call your health care provider right away if you suspect something is wrong. Antibiotic- educated on high risk medication Problem:High Risk Medications Goal:Patient/caregive r will teach back high risk medication side effect and precaution education Completed patient educated on taking medication(s) as prescribed by provider. Do not stop medication or alter doses without speaking with your provider. Discuss medication effectiveness or side effect concerns with your provider and home care team. Take the full dispensed amount even if you start feeling better, as bacteria can become resistant to antibiotic treatment if you do not finish your prescription. Common side effects are upset stomach and diarrhea. Take your antibiotics with food unless otherwise indicated to help with indigestion. Taking an zkqk-[id number]-[id number] probiotic or eating yogurt with live and active cultures three times a day can help prevent antibiotic-associated diarrhea. Call your provider immediately if you develop rashes or hives as this could be a delayed allergic reaction. Seek emergency treatment if you develop severe allergic reaction symptoms such as mouth or tongue swelling. Instruct on ongoing discharge plan Problem:Discharge Goal:Manage discharge planning Completed Ongoing Discharge plan: Discharge plan discussed with patient including frequency and duration for home SN and plan for transition to: caregiver assistance. Determine patient's Advance Directive Status Description: Patient does not have advance directives. Patient/Caregiver declined Advance Directive information. Problem:Advance Directives Goal:Patient/caregive r will make healthcare providers aware of and any changes to Advance Directives throughout certification period Completed Discussed Advance Directives with Patient and/or Caregiver. Referred patient to Home Care handbook for further information on Healthcare DPOA & Living Will. Assess and instruct on measures to reduce edema Problem:SN Edema Goal:Patient will have improved edema management Completed patient instructed on elevation, compression, diet, medication compliance and benefits of activity. Wound Care: Perform wound care (1) Description: Wound Care Order: Wound location: perianal Wound type (etiology): abcess Order: Lightly pack perineal wound with Io doform, cover with gauze and ABD. Wash wound with soap and water or wound cleanser with each dressing change Frequency: daily Wound care to be completed by caregiver except for scheduled SN wound care visits. Measure wound/incision at least weekly. Okay to substitute comparable products from home care formulary. Problem:SN Integumentary/Wounds Goal:Patient/Caregive r will have improved healing and be free of signs and symptoms of complications Completed Completed by SN. Patient did tolerate well. Instruct patient/caregiver healing process and management measures to promote healing and avoid complications Problem:SN Integumentary/Wounds Goal:Patient/Caregive r will have improved healing and be free of signs and symptoms of complications Completed patient instructed on the following: healing process, signs and symptoms of infection, importance of good nutrition, importance of managing blood sugars, smoking cessation and when to report symptoms. Instruct Patient/Caregiver on wound/incision care procedure as ordered by physician Problem:SN Integumentary/Wounds Goal:Patient/Caregive r will have improved healing and be free of signs and symptoms of complications Completed patient instructed on and return demonstrated wound care as ordered by Physician. Instruct on diabetes disease process and management of chronic condition Description: Patient has needs for education of diabetes. Problem:SN Diabetes Goal:Improved management of diabetes Completed patient assessed and reinforced on diabetes disease process, diet education, how to carb count, recogonizing s/s of hypoglycemia and hyperglycemia and managing sick days as found in the diabetes self-care booklets. Instruct on cardiovascular disease process and management of condition Description: Patient has following cardiac diagnosis(es): CAD. Problem:SN Cardiovascular Condition Goal:Improved management of cardiovascular disease Completed patient instructed on cardiac disease process, self monitoring & symptom reporting and Cardiac Diet. Instruct and educate on knowledge deficits Problem:SN Learning Assessment Goal:Demonstrate understanding of education Completed patient verbalize and/or demonstrate understanding of nursing education completed today. Education methods include: verbal cues and teach back. Further education required to improve knowledge and compliance with cardiac disease management, diabetic care management, fall prevention/home safety strategies, incision/wound care management, medication management and nutrition. Acute COPD Description: Instruct on defintion of COPD, signs and symptoms of COPD exacerbation, use of zone sheet, use of MDIs, difference between rescue vs maintenance inhalers, use of nebulizer, smoking cessation, breathing management including pursed lip breathing, diaphragmatic breathing, positioning to reduce SOB, controlled coughing, use of incentive spirometer, and use of acapela as found in the COPD binder. Problem:SN COPD Goal:Improved management of COPD Completed patient reinforced on defintion of COPD, signs and symptoms of COPD exacerbation, use of zone sheet, difference between rescue vs maintenance inhalers, use of nebulizer, smoking cessation and breathing management: pursed lip breathing, diaphragmatic breathing and positioning to reduce SOB as found in the COPD binder. Continued need for Home Care Services Description: POC and certification renewed due to continuing [facility] needs. Problem:Recertificati on Goal:Ongoing review of POC and need for skilled services Completed Instruct patient/caregiver healing process and management measures to promote healing and avoid complications Problem:SN Integumentary/Wounds Goal:Patient/Caregive r will have improved healing and be free of signs and symptoms of complications Completed patient instructed on the following: healing process, signs and symptoms of infection, importance of good nutrition, importance of managing blood sugars, smoking cessation and when to report symptoms. Instruct Patient/Caregiver on wound/incision care procedure as ordered by physician Description: L gluteal abscess care daily and as needed: Cleanse area in shower or with soap/water, cover with clean dry dressing and change each day and as needed for drainage. Continue this until no drainage present on dressing. Problem:SN Integumentary/Wounds Goal:Patient/Caregive r will have improved healing and be free of signs and symptoms of complications Completed patient instructed on wound care as ordered by Physician. Wound Care: Perform wound care (2) Description: Wound Care Order: Wound location: left buttocks Wound type (etiology): abcess Order: cleanse with NS pat dry pack with idoforme packing. cover with dry dressing Frequency: 3xweek and PRN for soiled Wound care to be completed by patient except for scheduled SN wound care visits. Measure wound/incision at least weekly. Okay to substitute comparable products from home care formulary. Problem:SN Integumentary/Wounds Goal:Patient/Caregive r will have improved healing and be free of signs and symptoms of complications Completed Completed by SN. Patient did tolerate well. documented in this encounter [facility]'s home Plan of care note* Visit Details Visit Type -SN ROUTINE Discipline -Half-Way Problems Problem Description Start Date Status Goals Interve ntions Medication Education Disciplines: Skilled Services 08/20/2022 Active 1 goal linked to scheduled/documen pawan intervention 1 goal intervention scheduled/document ed in this visit Sepsis Disciplines: Skilled Services 08/20/2022 Active 1 goal linked to scheduled/documen pawan intervention 1 goal intervention scheduled/document ed in this visit Physician Specific Parameters Disciplines: Skilled Services 08/20/2022 Active 1 goal linked to scheduled/documen pawan intervention 1 goal intervention scheduled/document ed in this visit Risk for Falls Disciplines: Skilled Services 08/20/2022 Active 1 goal linked to scheduled/documen pawan intervention 1 goal intervention scheduled/document ed in this visit Pain Disciplines: Skilled Services 08/20/2022 Active 1 goal linked to scheduled/documen pawan intervention 1 goal intervention scheduled/document ed in this visit Diabetic Foot Care Disciplines: Skilled Services 08/20/2022 Active 1 goal linked to scheduled/documen pawan intervention 1 goal intervention scheduled/document ed in this visit Oxygen Disciplines: Skilled Services 08/20/2022 Active 1 goal linked to scheduled/documen pawan intervention 1 goal intervention scheduled/document ed in this visit Nutrition/Hydration Disciplines: Skilled Services 08/20/2022 Active 1 goal linked to scheduled/documen pawan intervention 1 goal intervention scheduled/document ed in this visit High Risk Medications Disciplines: Skilled Services 08/20/2022 Active 1 goal linked to scheduled/documen pawan intervention 4 goal interventions scheduled/document ed in this visit Discharge Disciplines: Skilled Services 08/20/2022 Active 1 goal linked to scheduled/documen pawan intervention 1 goal intervention scheduled/document ed in this visit Advance Directives Disciplines: Skilled Services 08/20/2022 Active 1 goal linked to scheduled/documen pawan intervention 1 goal intervention scheduled/document ed in this visit SN Edema Disciplines: SN 08/20/2022 Active 1 goal linked to scheduled/documen pawan intervention 1 goal intervention scheduled/document ed in this visit SN Integumentary/Wound s Disciplines: SN 08/20/2022 Active 1 goal linked to scheduled/documen pawan intervention 1 goal intervention scheduled/document ed in this visit SN Diabetes Disciplines: SN 08/20/2022 Active 1 goal linked to scheduled/documen pawan intervention 1 goal intervention scheduled/document ed in this visit SN Cardiovascular Condition Disciplines: SN 08/20/2022 Active 1 goal linked to scheduled/documen pawan intervention 1 goal intervention scheduled/document ed in this visit SN COPD Disciplines: SN 09/22/2022 Active 1 goal linked to scheduled/documen pawan intervention 2 goal interventions scheduled/document ed in this visit Recertification Disciplines: Skilled Services 10/17/2022 Active 1 goal linked to scheduled/documen pawan intervention 1 goal intervention scheduled/document ed in this visit SN Integumentary/Wound s Disciplines: SN 11/09/2022 Active 1 goal linked to scheduled/documen pawan intervention 2 goal interventions scheduled/document ed in this visit Goals Goal Associated Problem Outcome Goal Met? Visit Notes Patient/caregiver will demonstrate ability to obtain, store, identify and administer ordered medications, keep accurate medication list in home, and adhere to medication schedule Description: Patient/caregiver will demonstrate ability to obtain, store, identify and administer ordered medications, keep accurate medication list in home, and adhere to medication schedule by 12/17/22. Medication Education No Patient/caregiver will be able to identify and report symptoms of sepsis Description: Patient/caregiver will be able to identify signs/symptoms of sepsis infection and will verbalize actions to take if suspected by 12/17/22. Sepsis No Patient to maintain parameters within physician-specified ranges throughout certification period Physician Specific Parameters No Manage Risk for falls Description: Patient/caregiver will verbalize knowledge of individualized fall prevention strategies by 12/17/22. Risk for Falls No Manage Pain Description: Patient/caregiver will verbalize knowledge and understanding of appropriate techniques to control pain, including pain medication and non-pharmacological techniques. Patient will verbalize or demonstrate an acceptable level of pain as evidenced by a pain score of 0-3/10 and improvement in ability to perform activities of daily living to be achieved by 12/17/22. Pain No Manage diabetic foot care Description: Patient/caregiver will demonstrate basic understanding of and compliance with diabetic self-care management as evidenced by verbalizing purpose of daily foot care and assessment by . Diabetic Foot Care No Manage oxygen Description: Patient/caregiver will use oxygen safely and effectively in home by verbalizing and demonstrating oxygen safety by 12/17/22. Oxygen No Manage Nutrition/Hydration Description: Patient/caregiver will verbalize/demonstrate knowledge of prescribed diet and/or healthy nutrition to be achieved by 12/17/22. Nutrition/Hydration No Patient/caregiver will teach back high risk medication side effect and precaution education High Risk Medications No Manage discharge planning Description: Patient/caregiver will verbalize understanding of ongoing discharge plan provided related to disease management, arrangements for outpatient and/or community services, obtaining medications, supplies, and DME, as needed throughout certification period. Discharge No Patient/caregiver will make healthcare providers aware of and any changes to Advance Directives throughout certification period Advance Directives No Patient will have improved edema management Description: Patient/caregiver will demonstrate an understanding of edema management strategies as evidenced by resolution or stabilization of edema by 12-17-22. SN Edema No Patient/Caregiver will have improved healing and be free of signs and symptoms of complications Description: Patient/caregiver will verbalize management strategies to promote wound healing & prevent complications as evidenced by improved healing & no complications by 12-17-22. SN Integumentary/Wounds No Improved management of diabetes Description: Improve diabetic management as evidenced by patient/caregiver able to teach back diabetic management strategies by 12/17/22. SN Diabetes No Improved management of cardiovascular disease Description: Improve patient/caregiver management of cardiac disease as evidenced by patient/caregiver ability to teach back cardiac management strategies by . SN Cardiovascular Condition No Improved management of COPD Description: Improve COPD management as evidenced by decreased reports of dyspnea, medication compliance, and patient able to teach back strategies to manage condition. Goal to be achieved by 12-17-22 SN COPD No Ongoing review of POC and need for skilled services Recertification No Patient/Caregiver will have improved healing and be free of signs and symptoms of complications Description: Patient/caregiver will verbalize management strategies to promote wound healing & prevent complications as evidenced by improved healing & no complications by 11/30/22. SN Integumentary/Wounds No Interventions Intervention Associated Problem/Goal Status Variance Visit Notes Medication Education Description: Evaluate/instruct patient/caregiver on obtaining, storing, identifying and administering ordered medications as well as keeping accurate medication list in the home and adhereing to medication schedule Problem:Medication Education Goal:Patient/caregive r will demonstrate ability to obtain, store, identify and administer ordered medications, keep accurate medication list in home, and adhere to medication schedule Completed Patient instructed on importance of keeping accurate medication list in home, adhering to medication schedule and proper storage of medications. Risk of Sepsis Description: Patient is at risk for sepsis. Monitor closely for s/s of sepsis. Problem:Sepsis Goal:Patient/caregive r will be able to identify and report symptoms of sepsis Completed SPO2 Description: Notify if pulse ox is <92% at rest. Problem:Physician Specific Parameters Goal:Patient to maintain parameters within physician-specified ranges throughout certification period Completed Instruct on individual fall risk factors and strategies to prevent falls and injuries caused by falls. Problem:Risk for Falls Goal:Manage Risk for falls Completed SN: Patient instructed on Eliminating Environmental Hazards: Keep pathways clear, Keep pets out of pathways, Keep rooms and walkways well lit, Wear supportive shoes or non-skid socks and Keep frequently used items within reach Instruct on pain and instruct on strategies to control pain Problem:Pain Goal:Manage Pain Completed patient instructed on techniques to control pain including Pharmacological measures and Non-Pharmacological measures; rest, positioning/elevation, mobility/therapeutic exercise, distraction and breathing/relaxation. Monitor lower extremities for skin lesions and educate on proper foot care Problem:Diabetic Foot Care Goal:Manage diabetic foot care Completed patient instructed on diabetic foot care including daily skin inspection, wearing proper footwear/avoiding going barefoot, wash/dry feet thoroughly, applying moisturizer, avoiding between toes and toenail care. Instruct on fire safety and safe and effective use of oxygen in the home Problem:Oxygen Goal:Manage oxygen Completed patient instructed on: findings of safety risk assessment, causes of fires, firerisks for neighboring residences and buildings and precautions that can prevent fire-related injuries patient demonstrate compliance with safety recommendations. Define patient s appetite/hydration status and implement strategies to improve compliance with prescribed diet and/or healthy nutrition. Problem:Nutrition/Hyd ration Goal:Manage Nutrition/Hydration Completed reinforced patient on implementing strategies to comply with prescribed diet, healthy nutrition and adequate hydration Opioids- educated on high risk medication Problem:High Risk Medications Goal:Patient/caregive r will teach back high risk medication side effect and precaution education Completed patient educated on taking medication(s) as prescribed by provider. Do not stop medication or alter doses without speaking with your provider. Discuss medication effectiveness or side effect concerns with your provider and home care team. Only take opioids as prescribed, do not share your medications, and take proper precautions in storing and properly disposing of opioids once no longer needed. Possible side effects of opioid medication including sedation, decreased rate of breathing, and constipation. Report over sedation to prescribing provider and practice deep breathing techniques every hour while awake. Prevent constipation by increasing water and fiber intake, increasing activity as tolerated, and use stool softener(s) as prescribed. Hypoglycemic (including insulin)- educated on high risk medication Problem:High Risk Medications Goal:Patient/caregive r will teach back high risk medication side effect and precaution education Completed patient educated on taking medication(s) as prescribed by provider. Do not stop medication or skip/alter doses without speaking with your provider. Discuss medication effectiveness or side effect concerns with your provider and home care team. Check blood sugars and keep log as ordered by provider. Monitor for side effects of hypoglycemia such as increased weakness or shaking, moist skin, sweating, fast heartbeat, dizziness, sudden hunger, confusion, pale skin, numbness in mouth or tongue, irritability, nervousness, unsteadiness, nightmares, bad dreams, and restless sleep. Checking your blood sugar routinely and eating a consistent diabetic diet can help regulate blood sugars and reduce side effects. Antiplatelet- educated on high risk medication Problem:High Risk Medications Goal:Patient/caregive r will teach back high risk medication side effect and precaution education Completed patient educated on taking medication(s) as prescribed by provider. Do not stop medication or alter doses without speaking with your provider. Discuss medication effectiveness or side effect concerns with your provider and home care team. Discuss all medications you are taking, even hczq-mpj-[id number] medicines, with your provider and pharmacist since many drugs can interact with antiplatelet medications. If you forget to take a dose, DO NOT take a double dose. Take the missed dose as soon as possible on the same day. DO NOT take a double dose the next day to make up for the missed dose. Watch for signs of abnormal or excessive bleeding and bruising (refer to Bleeding Precautions education). Call your health care provider right away if you suspect something is wrong. Antibiotic- educated on high risk medication Problem:High Risk Medications Goal:Patient/caregive r will teach back high risk medication side effect and precaution education Completed patient educated on taking medication(s) as prescribed by provider. Do not stop medication or alter doses without speaking with your provider. Discuss medication effectiveness or side effect concerns with your provider and home care team. Take the full dispensed amount even if you start feeling better, as bacteria can become resistant to antibiotic treatment if you do not finish your prescription. Common side effects are upset stomach and diarrhea. Take your antibiotics with food unless otherwise indicated to help with indigestion. Taking an hzcy-lag-wizprax probiotic or eating yogurt with live and active cultures three times a day can help prevent antibiotic-associated diarrhea. Call your provider immediately if you develop rashes or hives as this could be a delayed allergic reaction. Seek emergency treatment if you develop severe allergic reaction symptoms such as mouth or tongue swelling. Instruct on ongoing discharge plan Problem:Discharge Goal:Manage discharge planning Completed Ongoing Discharge plan: Discharge plan discussed with patient including frequency and duration for home SN and plan for transition to: caregiver assistance. Determine patient's Advance Directive Status Description: Patient does not have advance directives. Patient/Caregiver declined Advance Directive information. Problem:Advance Directives Goal:Patient/caregive r will make healthcare providers aware of and any changes to Advance Directives throughout certification period Completed Discussed Advance Directives with Patient and/or Caregiver. Referred patient to Home Care handbook for further information on Healthcare DPOA & Living Will. Assess and instruct on measures to reduce edema Problem:SN Edema Goal:Patient will have improved edema management Completed patient instructed on elevation, compression, diet, medication compliance and benefits of activity. Wound Care: Perform wound care (1) Description: Wound Care Order: Wound location: perianal Wound type (etiology): abcess Order: Lightly pack perineal wound with Io doform, cover with gauze and ABD. Wash wound with soap and water or wound cleanser with each dressing change Frequency: daily Wound care to be completed by caregiver except for scheduled SN wound care visits. Measure wound/incision at least weekly. Okay to substitute comparable products from home care formulary. Problem:SN Integumentary/Wounds Goal:Patient/Caregive r will have improved healing and be free of signs and symptoms of complications Completed Completed by patient/caregiver completed independently . Patient did tolerate well. Instruct on diabetes disease process and management of chronic condition Description: Patient has needs for education of diabetes. Problem:SN Diabetes Goal:Improved management of diabetes Completed patient assessed and reinforced on diabetes disease process, how to use blood sugar meter and logging readings, diet education, how to carb count and recogonizing s/s of hypoglycemia and hyperglycemia as found in the diabetes self-care booklets. Instruct on cardiovascular disease process and management of condition Description: Patient has following cardiac diagnosis(es): CAD. Problem:SN Cardiovascular Condition Goal:Improved management of cardiovascular disease Completed patient instructed on cardiac disease process, self monitoring & symptom reporting and Cardiac Diet. Maintenance COPD Description: Reinforce Acute and Sub-acute management education. Instruct on review zone sheet, nutrition in relation to COPD management, energy conservation, pacing activities, independence in ADLs vs what caregiver should be helping with, home exercise, additional COPD resources available like chronic care clinics as found in the COPD binder. Problem:SN COPD Goal:Improved management of COPD Completed Reinforced Acute and Sub-acute management education. patient reinforced on zone sheet, nutrition in relation to COPD management and energy conservation pacing activities and Romeo in ADLs vs what caregiver should be helping with as found in the COPD binder. Acute COPD Description: Instruct on defintion of COPD, signs and symptoms of COPD exacerbation, use of zone sheet, use of MDIs, difference between rescue vs maintenance inhalers, use of nebulizer, smoking cessation, breathing management including pursed lip breathing, diaphragmatic breathing, positioning to reduce SOB, controlled coughing, use of incentive spirometer, and use of acapela as found in the COPD binder. Problem:SN COPD Goal:Improved management of COPD Completed patient reinforced on defintion of COPD, signs and symptoms of COPD exacerbation, use of zone sheet, use of MDIs, difference between rescue vs maintenance inhalers, smoking cessation and breathing management: pursed lip breathing, diaphragmatic breathing and positioning to reduce SOB as found in the COPD binder. Continued need for Home Care Services Description: POC and certification renewed due to continuing [facility] needs. Problem:Recertificati on Goal:Ongoing review of POC and need for skilled services Completed Instruct patient/caregiver healing process and management measures to promote healing and avoid complications Problem:SN Integumentary/Wounds Goal:Patient/Caregive r will have improved healing and be free of signs and symptoms of complications Completed patient instructed on the following: healing process, signs and symptoms of infection, importance of good nutrition, importance of managing blood sugars, smoking cessation and when to report symptoms. Instruct Patient/Caregiver on wound/incision care procedure as ordered by physician Description: L gluteal abscess care daily and as needed: Cleanse area in shower or with soap/water, cover with clean dry dressing and change each day and as needed for drainage. Continue this until no drainage present on dressing. Problem:SN Integumentary/Wounds Goal:Patient/Caregive r will have improved healing and be free of signs and symptoms of complications Completed patient instructed on and return demonstrated wound care as ordered by Physician. documented in this encounter [facility]'s home Plan of care note* Visit Details Visit Type -SN ROUTINE Discipline -Half-Way Problems Problem Description Start Date Status Goals Interve ntions Medication Education Disciplines: Skilled Services 08/20/2022 Active 1 goal linked to scheduled/documen pawan intervention 1 goal intervention scheduled/document ed in this visit Sepsis Disciplines: Skilled Services 08/20/2022 Active 1 goal linked to scheduled/documen pawan intervention 1 goal intervention scheduled/document ed in this visit Physician Specific Parameters Disciplines: Skilled Services 08/20/2022 Active 1 goal linked to scheduled/documen pawan intervention 1 goal intervention scheduled/document ed in this visit Risk for Falls Disciplines: Skilled Services 08/20/2022 Active 1 goal linked to scheduled/documen pawan intervention 1 goal intervention scheduled/document ed in this visit Pain Disciplines: Skilled Services 08/20/2022 Active 1 goal linked to scheduled/documen pawan intervention 1 goal intervention scheduled/document ed in this visit Diabetic Foot Care Disciplines: Skilled Services 08/20/2022 Active 1 goal linked to scheduled/documen pawan intervention 1 goal intervention scheduled/document ed in this visit Oxygen Disciplines: Skilled Services 08/20/2022 Active 1 goal linked to scheduled/documen pawan intervention 1 goal intervention scheduled/document ed in this visit Nutrition/Hydration Disciplines: Skilled Services 08/20/2022 Active 1 goal linked to scheduled/documen pawan intervention 1 goal intervention scheduled/document ed in this visit High Risk Medications Disciplines: Skilled Services 08/20/2022 Active 1 goal linked to scheduled/documen pawan intervention 3 goal interventions scheduled/document ed in this visit Discharge Disciplines: Skilled Services 08/20/2022 Active 1 goal linked to scheduled/documen pawan intervention 1 goal intervention scheduled/document ed in this visit Advance Directives Disciplines: Skilled Services 08/20/2022 Active 1 goal linked to scheduled/documen pawan intervention 1 goal intervention scheduled/document ed in this visit SN Edema Disciplines: SN 08/20/2022 Active 1 goal linked to scheduled/documen pawan intervention 1 goal intervention scheduled/document ed in this visit SN Integumentary/Wound s Disciplines: SN 08/20/2022 Active 1 goal linked to scheduled/documen pawan intervention 2 goal interventions scheduled/document ed in this visit SN Diabetes Disciplines: SN 08/20/2022 Active 1 goal linked to scheduled/documen pawan intervention 1 goal intervention scheduled/document ed in this visit SN Cardiovascular Condition Disciplines: SN 08/20/2022 Active 1 goal linked to scheduled/documen pawan intervention 1 goal intervention scheduled/document ed in this visit SN Learning Assessment Disciplines: SN 08/20/2022 Active 1 goal linked to scheduled/documen pawan intervention 1 goal intervention scheduled/document ed in this visit SN COPD Disciplines: SN 09/22/2022 Active 1 goal linked to scheduled/documen pawan intervention 3 goal interventions scheduled/document ed in this visit Recertification Disciplines: Skilled Services 10/17/2022 Active 1 goal linked to scheduled/documen pawan intervention 1 goal intervention scheduled/document ed in this visit SN Integumentary/Wound s Disciplines: SN 11/09/2022 Active 1 goal linked to scheduled/documen pawan intervention 1 goal intervention scheduled/document ed in this visit SN Integumentary/Wound s Disciplines: SN 11/11/2022 Active 1 goal linked to scheduled/documen pawan intervention 1 goal intervention scheduled/document ed in this visit SN Integumentary/Wound s Disciplines: SN 11/27/2022 Active 1 goal linked to scheduled/documemaximiliano pawan intervention 1 goal intervention scheduled/document ed in this visit Goals Goal Associated Problem Outcome Goal Met? Visit Notes Patient/caregiver will demonstrate ability to obtain, store, identify and administer ordered medications, keep accurate medication list in home, and adhere to medication schedule Description: Patient/caregiver will demonstrate ability to obtain, store, identify and administer ordered medications, keep accurate medication list in home, and adhere to medication schedule by 12/17/22. Medication Education No Patient/caregiver will be able to identify and report symptoms of sepsis Description: Patient/caregiver will be able to identify signs/symptoms of sepsis infection and will verbalize actions to take if suspected by 12/17/22. Sepsis No Patient to maintain parameters within physician-specified ranges throughout certification period Physician Specific Parameters No Manage Risk for falls Description: Patient/caregiver will verbalize knowledge of individualized fall prevention strategies by 12/17/22. Risk for Falls No Manage Pain Description: Patient/caregiver will verbalize knowledge and understanding of appropriate techniques to control pain, including pain medication and non-pharmacological techniques. Patient will verbalize or demonstrate an acceptable level of pain as evidenced by a pain score of 0-3/10 and improvement in ability to perform activities of daily living to be achieved by 12/17/22. Pain No Manage diabetic foot care Description: Patient/caregiver will demonstrate basic understanding of and compliance with diabetic self-care management as evidenced by verbalizing purpose of daily foot care and assessment by . Diabetic Foot Care No Manage oxygen Description: Patient/caregiver will use oxygen safely and effectively in home by verbalizing and demonstrating oxygen safety by 12/17/22. Oxygen No Manage Nutrition/Hydration Description: Patient/caregiver will verbalize/demonstrate knowledge of prescribed diet and/or healthy nutrition to be achieved by 12/17/22. Nutrition/Hydration No Patient/caregiver will teach back high risk medication side effect and precaution education High Risk Medications No Manage discharge planning Description: Patient/caregiver will verbalize understanding of ongoing discharge plan provided related to disease management, arrangements for outpatient and/or community services, obtaining medications, supplies, and DME, as needed throughout certification period. Discharge No Patient/caregiver will make healthcare providers aware of and any changes to Advance Directives throughout certification period Advance Directives No Patient will have improved edema management Description: Patient/caregiver will demonstrate an understanding of edema management strategies as evidenced by resolution or stabilization of edema by 12-17-22. SN Edema No Patient/Caregiver will have improved healing and be free of signs and symptoms of complications Description: Patient/caregiver will verbalize management strategies to promote wound healing & prevent complications as evidenced by improved healing & no complications by 12-17-22. SN Integumentary/Wounds No Improved management of diabetes Description: Improve diabetic management as evidenced by patient/caregiver able to teach back diabetic management strategies by 12/17/22. SN Diabetes No Improved management of cardiovascular disease Description: Improve patient/caregiver management of cardiac disease as evidenced by patient/caregiver ability to teach back cardiac management strategies by . SN Cardiovascular Condition No Demonstrate understanding of education Description: Patient and/or caregiver will verbalize understanding of educational instruction provided throughout certification period. SN Learning Assessment No Improved management of COPD Description: Improve COPD management as evidenced by decreased reports of dyspnea, medication compliance, and patient able to teach back strategies to manage condition. Goal to be achieved by 12-17-22 SN COPD No Ongoing review of POC and need for skilled services Recertification No Patient/Caregiver will have improved healing and be free of signs and symptoms of complications Description: Patient/caregiver will verbalize management strategies to promote wound healing & prevent complications as evidenced by improved healing & no complications by 11/30/22. SN Integumentary/Wounds No Patient/Caregiver will have improved healing and be free of signs and symptoms of complications Description: Patient/caregiver will verbalize management strategies to promote wound healing & prevent complications as evidenced by improved healing & no complications by 12-17-22. SN Integumentary/Wounds No Patient/Caregiver will have improved healing and be free of signs and symptoms of complications Description: Patient/caregiver will verbalize management strategies to promote wound healing & prevent complications as evidenced by improved healing & no complications by 12-17-22. SN Integumentary/Wounds No Interventions Intervention Associated Problem/Goal Status Variance Visit Notes Medication Education Description: Evaluate/instruct patient/caregiver on obtaining, storing, identifying and administering ordered medications as well as keeping accurate medication list in the home and adhereing to medication schedule Problem:Medication Education Goal:Patient/caregive r will demonstrate ability to obtain, store, identify and administer ordered medications, keep accurate medication list in home, and adhere to medication schedule Completed Patient instructed on importance of keeping accurate medication list in home, adhering to medication schedule and proper storage of medications. Risk of Sepsis Description: Patient is at risk for sepsis. Monitor closely for s/s of sepsis. Problem:Sepsis Goal:Patient/caregive r will be able to identify and report symptoms of sepsis Completed SPO2 Description: Notify if pulse ox is <92% at rest. Problem:Physician Specific Parameters Goal:Patient to maintain parameters within physician-specified ranges throughout certification period Completed Instruct on individual fall risk factors and strategies to prevent falls and injuries caused by falls. Problem:Risk for Falls Goal:Manage Risk for falls Completed SN: Patient instructed on Eliminating Environmental Hazards: Keep pathways clear, Keep pets out of pathways, Keep rooms and walkways well lit, Wear supportive shoes or non-skid socks and Keep frequently used items within reach Instruct on pain and instruct on strategies to control pain Problem:Pain Goal:Manage Pain Completed patient instructed on techniques to control pain including Pharmacological measures and Non-Pharmacological measures; rest, positioning/elevation, mobility/therapeutic exercise, distraction and breathing/relaxation. Monitor lower extremities for skin lesions and educate on proper foot care Problem:Diabetic Foot Care Goal:Manage diabetic foot care Completed patient instructed on diabetic foot care including daily skin inspection, wearing proper footwear/avoiding going barefoot, wash/dry feet thoroughly, applying moisturizer, avoiding between toes and toenail care. Instruct on fire safety and safe and effective use of oxygen in the home Problem:Oxygen Goal:Manage oxygen Completed patient instructed on: findings of safety risk assessment, causes of fires, firerisks for neighboring residences and buildings, precautions that can prevent fire-related injuries and oxygen safety as outlined in Home Care Patient Handbook patient demonstrate compliance with safety recommendations. Define patient s appetite/hydration status and implement strategies to improve compliance with prescribed diet and/or healthy nutrition. Problem:Nutrition/Hyd ration Goal:Manage Nutrition/Hydration Completed reinforced patient on implementing strategies to comply with prescribed diet, healthy nutrition and adequate hydration Hypoglycemic (including insulin)- educated on high risk medication Problem:High Risk Medications Goal:Patient/caregive r will teach back high risk medication side effect and precaution education Completed patient educated on taking medication(s) as prescribed by provider. Do not stop medication or skip/alter doses without speaking with your provider. Discuss medication effectiveness or side effect concerns with your provider and home care team. Check blood sugars and keep log as ordered by provider. Monitor for side effects of hypoglycemia such as increased weakness or shaking, moist skin, sweating, fast heartbeat, dizziness, sudden hunger, confusion, pale skin, numbness in mouth or tongue, irritability, nervousness, unsteadiness, nightmares, bad dreams, and restless sleep. Checking your blood sugar routinely and eating a consistent diabetic diet can help regulate blood sugars and reduce side effects. Antiplatelet- educated on high risk medication Problem:High Risk Medications Goal:Patient/caregive r will teach back high risk medication side effect and precaution education Completed patient educated on taking medication(s) as prescribed by provider. Do not stop medication or alter doses without speaking with your provider. Discuss medication effectiveness or side effect concerns with your provider and home care team. Discuss all medications you are taking, even sita-fqz-vjmcegf medicines, with your provider and pharmacist since many drugs can interact with antiplatelet medications. If you forget to take a dose, DO NOT take a double dose. Take the missed dose as soon as possible on the same day. DO NOT take a double dose the next day to make up for the missed dose. Watch for signs of abnormal or excessive bleeding and bruising (refer to Bleeding Precautions education). Call your health care provider right away if you suspect something is wrong. Antibiotic- educated on high risk medication Problem:High Risk Medications Goal:Patient/caregive r will teach back high risk medication side effect and precaution education Completed patient educated on taking medication(s) as prescribed by provider. Do not stop medication or alter doses without speaking with your provider. Discuss medication effectiveness or side effect concerns with your provider and home care team. Take the full dispensed amount even if you start feeling better, as bacteria can become resistant to antibiotic treatment if you do not finish your prescription. Common side effects are upset stomach and diarrhea. Take your antibiotics with food unless otherwise indicated to help with indigestion. Taking an gcwd-nya-brsmobe probiotic or eating yogurt with live and active cultures three times a day can help prevent antibiotic-associated diarrhea. Call your provider immediately if you develop rashes or hives as this could be a delayed allergic reaction. Seek emergency treatment if you develop severe allergic reaction symptoms such as mouth or tongue swelling. Instruct on ongoing discharge plan Problem:Discharge Goal:Manage discharge planning Completed Ongoing Discharge plan: Discharge plan discussed with patient including frequency and duration for home SN and plan for transition to: caregiver assistance. Determine patient's Advance Directive Status Description: Patient does not have advance directives. Patient/Caregiver declined Advance Directive information. Problem:Advance Directives Goal:Patient/caregive r will make healthcare providers aware of and any changes to Advance Directives throughout certification period Completed Discussed Advance Directives with Patient and/or Caregiver. Referred patient to Home Care handbook for further information on Healthcare DPOA & Living Will. Assess and instruct on measures to reduce edema Problem:SN Edema Goal:Patient will have improved edema management Completed patient instructed on elevation, compression, diet, medication compliance and benefits of activity. Wound Care: Perform wound care (1) Description: Wound Care Order: Wound location: perianal Wound type (etiology): abcess Order: Lightly pack perineal wound with Io doform, cover with gauze and ABD. Wash wound with soap and water or wound cleanser with each dressing change Frequency: daily Wound care to be completed by caregiver except for scheduled SN wound care visits. Measure wound/incision at least weekly. Okay to substitute comparable products from home care formulary. Problem:SN Integumentary/Wounds Goal:Patient/Caregive r will have improved healing and be free of signs and symptoms of complications Completed Completed by SN. Patient did tolerate well. Instruct patient/caregiver healing process and management measures to promote healing and avoid complications Problem:SN Integumentary/Wounds Goal:Patient/Caregive r will have improved healing and be free of signs and symptoms of complications Completed patient instructed on the following: healing process, signs and symptoms of infection, importance of good nutrition, importance of managing blood sugars, smoking cessation and when to report symptoms. Instruct on diabetes disease process and management of chronic condition Description: Patient has needs for education of diabetes. Problem:SN Diabetes Goal:Improved management of diabetes Completed patient assessed and reinforced on diabetes disease process, diet education, how to carb count and recogonizing s/s of hypoglycemia and hyperglycemia as found in the diabetes self-care booklets. Instruct on cardiovascular disease process and management of condition Description: Patient has following cardiac diagnosis(es): CAD. Problem:SN Cardiovascular Condition Goal:Improved management of cardiovascular disease Completed patient instructed on cardiac disease process, self monitoring & symptom reporting, DVT/PE prevention and Cardiac Diet. Instruct and educate on knowledge deficits Problem:SN Learning Assessment Goal:Demonstrate understanding of education Completed patient verbalize and/or demonstrate understanding of nursing education completed today. Education methods include: verbal cues. Further education required to improve knowledge and compliance with cardiac disease management, depression/anxiety care management, diabetic care management, fall prevention/home safety strategies and incision/wound care management. Maintenance COPD Description: Reinforce Acute and Sub-acute management education. Instruct on review zone sheet, nutrition in relation to COPD management, energy conservation, pacing activities, independence in ADLs vs what caregiver should be helping with, home exercise, additional COPD resources available like chronic care clinics as found in the COPD binder. Problem:SN COPD Goal:Improved management of COPD Completed Reinforced Acute and Sub-acute management education. patient and caregiver reinforced on zone sheet, nutrition in relation to COPD management and energy conservation pacing activities and Romeo in ADLs vs what caregiver should be helping with as found in the COPD binder. Sub-acute COPD Description: Reinforce Acute COPD management education. Instruct on zone sheet, methods to reduce infection risks, anxiety management including relaxation techniques, importance of sleep, stress reduction, and coping strategies for living with COPD as found in the COPD binder. Problem:SN COPD Goal:Improved management of COPD Completed Reinforced Acute COPD management education. patient reinforced on zone sheet, methods to reduce infection risks, anxiety management including: relaxation techniques, importance of sleep and stress reduction and coping strategies for living with COPD as found in the COPD binder. Acute COPD Description: Instruct on defintion of COPD, signs and symptoms of COPD exacerbation, use of zone sheet, use of MDIs, difference between rescue vs maintenance inhalers, use of nebulizer, smoking cessation, breathing management including pursed lip breathing, diaphragmatic breathing, positioning to reduce SOB, controlled coughing, use of incentive spirometer, and use of acapela as found in the COPD binder. Problem:SN COPD Goal:Improved management of COPD Completed patient reinforced on defintion of COPD, signs and symptoms of COPD exacerbation, use of zone sheet and use of MDIs as found in the COPD binder. Continued need for Home Care Services Description: POC and certification renewed due to continuing [facility] needs. Problem:Recertificati on Goal:Ongoing review of POC and need for skilled services Completed Instruct Patient/Caregiver on wound/incision care procedure as ordered by physician Description: L gluteal abscess care daily and as needed: Cleanse area in shower or with soap/water, cover with clean dry dressing and change each day and as needed for drainage. Continue this until no drainage present on dressing. Problem:SN Integumentary/Wounds Goal:Patient/Caregive r will have improved healing and be free of signs and symptoms of complications Completed patient instructed on wound care as ordered by Physician. Wound Care: Perform wound care (2) Description: Wound Care Order: Wound location: left buttocks Wound type (etiology): abcess Order: cleanse with NS pat dry pack with idoforme packing. cover with dry dressing Frequency: 3xweek and PRN for soiled Wound care to be completed by patient except for scheduled SN wound care visits. Measure wound/incision at least weekly. Okay to substitute comparable products from home care formulary. Problem:SN Integumentary/Wounds Goal:Patient/Caregive r will have improved healing and be free of signs and symptoms of complications Completed Completed by SN. Patient did tolerate well. Wound Care: Perform wound care (4) Description: Wound Care Order: Wound location: right inner thigh Wound type (etiology): Boil Order: cleanse with mild soap and water rinse pat dry pack with idoform packing and cover with dry dressing Frequency: 3xweek Wound care to be completed by patient except for scheduled SN wound care visits. Measure wound/incision at least weekly. Okay to substitute comparable products from home care formulary. Problem:SN Integumentary/Wounds Goal:Patient/Caregive r will have improved healing and be free of signs and symptoms of complications Completed Completed by SN. Patient did tolerate well. documented in this encounter [facility]'s home Plan of care note* Visit Details Visit Type -SN ROUTINE Discipline -Half-Way Problems Problem Description Start Date Status Goals Interve ntions Medication Education Disciplines: Skilled Services 08/20/2022 Active 1 goal linked to scheduled/document ed intervention 1 goal intervention scheduled/documente d in this visit Sepsis Disciplines: Skilled Services 08/20/2022 Active 1 goal linked to scheduled/document ed intervention 1 goal intervention scheduled/documente d in this visit Physician Specific Parameters Disciplines: Skilled Services 08/20/2022 Active 1 goal linked to scheduled/document ed intervention 1 goal intervention scheduled/documente d in this visit Risk for Falls Disciplines: Skilled Services 08/20/2022 Active 1 goal linked to scheduled/document ed intervention 1 goal intervention scheduled/documente d in this visit Diabetic Foot Care Disciplines: Skilled Services 08/20/2022 Active 1 goal linked to scheduled/document ed intervention 1 goal intervention scheduled/documente d in this visit Oxygen Disciplines: Skilled Services 08/20/2022 Active 1 goal linked to scheduled/document ed intervention 1 goal intervention scheduled/documente d in this visit Nutrition/Hydra tion Disciplines: Skilled Services 08/20/2022 Active 1 goal linked to scheduled/document ed intervention 1 goal intervention scheduled/documente d in this visit High Risk Medications Disciplines: Skilled Services 08/20/2022 Active 1 goal linked to scheduled/document ed intervention 4 goal interventions scheduled/documente d in this visit Discharge Disciplines: Skilled Services 08/20/2022 Active 1 goal linked to scheduled/document ed intervention 1 goal intervention scheduled/documente d in this visit Advance Directives Disciplines: Skilled Services 08/20/2022 Active 1 goal linked to scheduled/document ed intervention 1 goal intervention scheduled/documente d in this visit SN Integumentary/W ounds Disciplines: SN 08/20/2022 Active 1 goal linked to scheduled/document ed intervention 2 goal interventions scheduled/documente d in this visit SN COPD Disciplines: SN 09/22/2022 Active 1 goal linked to scheduled/document ed intervention 1 goal intervention scheduled/documente d in this visit Recertification Disciplines: Skilled Services 10/17/2022 Active 1 goal linked to scheduled/document ed intervention 1 goal intervention scheduled/documente d in this visit SN Integumentary/W ounds Disciplines: SN 11/11/2022 Active 1 goal linked to scheduled/document ed intervention 1 goal intervention scheduled/documente d in this visit SN Integumentary/W ounds Disciplines: SN 11/27/2022 Active 1 goal linked to scheduled/document ed intervention 1 goal intervention scheduled/documente d in this visit Goals Goal Associated Problem Outcome Goal Met? Visit Notes Patient/caregiver will demonstrate ability to obtain, store, identify and administer ordered medications, keep accurate medication list in home, and adhere to medication schedule Description: Patient/caregiver will demonstrate ability to obtain, store, identify and administer ordered medications, keep accurate medication list in home, and adhere to medication schedule by 12/17/22. Medication Education No Patient/caregiver will be able to identify and report symptoms of sepsis Description: Patient/caregiver will be able to identify signs/symptoms of sepsis infection and will verbalize actions to take if suspected by 12/17/22. Sepsis No Patient to maintain parameters within physician-specified ranges throughout certification period Physician Specific Parameters No Manage Risk for falls Description: Patient/caregiver will verbalize knowledge of individualized fall prevention strategies by 12/17/22. Risk for Falls No Manage diabetic foot care Description: Patient/caregiver will demonstrate basic understanding of and compliance with diabetic self-care management as evidenced by verbalizing purpose of daily foot care and assessment by . Diabetic Foot Care No Manage oxygen Description: Patient/caregiver will use oxygen safely and effectively in home by verbalizing and demonstrating oxygen safety by 12/17/22. Oxygen No Manage Nutrition/Hydration Description: Patient/caregiver will verbalize/demonstrate knowledge of prescribed diet and/or healthy nutrition to be achieved by 12/17/22. Nutrition/Hydration No Patient/caregiver will teach back high risk medication side effect and precaution education High Risk Medications No Manage discharge planning Description: Patient/caregiver will verbalize understanding of ongoing discharge plan provided related to disease management, arrangements for outpatient and/or community services, obtaining medications, supplies, and DME, as needed throughout certification period. Discharge No Patient/caregiver will make healthcare providers aware of and any changes to Advance Directives throughout certification period Advance Directives No Patient/Caregiver will have improved healing and be free of signs and symptoms of complications Description: Patient/caregiver will verbalize management strategies to promote wound healing & prevent complications as evidenced by improved healing & no complications by 12-17-22. SN Integumentary/Wounds No Improved management of COPD Description: Improve COPD management as evidenced by decreased reports of dyspnea, medication compliance, and patient able to teach back strategies to manage condition. Goal to be achieved by 12-17-22 SN COPD No Ongoing review of POC and need for skilled services Recertification No Patient/Caregiver will have improved healing and be free of signs and symptoms of complications Description: Patient/caregiver will verbalize management strategies to promote wound healing & prevent complications as evidenced by improved healing & no complications by 12-17-22. SN Integumentary/Wounds No Patient/Caregiver will have improved healing and be free of signs and symptoms of complications Description: Patient/caregiver will verbalize management strategies to promote wound healing & prevent complications as evidenced by improved healing & no complications by 12-17-22. SN Integumentary/Wounds No Interventions Intervention Associated Problem/Goal Status Variance Visit Notes Medication Education Description: Evaluate/instruct patient/caregiver on obtaining, storing, identifying and administering ordered medications as well as keeping accurate medication list in the home and adhereing to medication schedule Problem:Medication Education Goal:Patient/caregive r will demonstrate ability to obtain, store, identify and administer ordered medications, keep accurate medication list in home, and adhere to medication schedule Completed Patient instructed on importance of keeping accurate medication list in home, adhering to medication schedule and proper storage of medications. Risk of Sepsis Description: Patient is at risk for sepsis. Monitor closely for s/s of sepsis. Problem:Sepsis Goal:Patient/caregive r will be able to identify and report symptoms of sepsis Completed SPO2 Description: Notify if pulse ox is <92% at rest. Problem:Physician Specific Parameters Goal:Patient to maintain parameters within physician-specified ranges throughout certification period Completed Instruct on individual fall risk factors and strategies to prevent falls and injuries caused by falls. Problem:Risk for Falls Goal:Manage Risk for falls Completed SN: Patient instructed on Eliminating Environmental Hazards: Keep pathways clear, Keep pets out of pathways, Keep rooms and walkways well lit, Wear supportive shoes or non-skid socks and Keep frequently used items within reach Monitor lower extremities for skin lesions and educate on proper foot care Problem:Diabetic Foot Care Goal:Manage diabetic foot care Completed patient instructed on diabetic foot care including daily skin inspection, wearing proper footwear/avoiding going barefoot, wash/dry feet thoroughly, applying moisturizer, avoiding between toes and toenail care. Instruct on fire safety and safe and effective use of oxygen in the home Problem:Oxygen Goal:Manage oxygen Completed patient instructed on: findings of safety risk assessment, causes of fires, firerisks for neighboring residences and buildings, precautions that can prevent fire-related injuries, oxygen safety as outlined in Home Care Patient Handbook and recommendations for specific safety risks identified in the home: establishment of fire escape plan, telephone accessibility and implementation of no-smoking policy in home, including e-cigarettes and posting of No-Smoking signs on entrance doors patient demonstrate compliance with safety recommendations. Define patient s appetite/hydration status and implement strategies to improve compliance with prescribed diet and/or healthy nutrition. Problem:Nutrition/Hyd ration Goal:Manage Nutrition/Hydration Completed reinforced patient on implementing strategies to comply with prescribed diet, healthy nutrition and adequate hydration Opioids- educated on high risk medication Problem:High Risk Medications Goal:Patient/caregive r will teach back high risk medication side effect and precaution education Completed patient educated on taking medication(s) as prescribed by provider. Do not stop medication or alter doses without speaking with your provider. Discuss medication effectiveness or side effect concerns with your provider and home care team. Only take opioids as prescribed, do not share your medications, and take proper precautions in storing and properly disposing of opioids once no longer needed. Possible side effects of opioid medication including sedation, decreased rate of breathing, and constipation. Report over sedation to prescribing provider and practice deep breathing techniques every hour while awake. Prevent constipation by increasing water and fiber intake, increasing activity as tolerated, and use stool softener(s) as prescribed. Hypoglycemic (including insulin)- educated on high risk medication Problem:High Risk Medications Goal:Patient/caregive r will teach back high risk medication side effect and precaution education Completed patient educated on taking medication(s) as prescribed by provider. Do not stop medication or skip/alter doses without speaking with your provider. Discuss medication effectiveness or side effect concerns with your provider and home care team. Check blood sugars and keep log as ordered by provider. Monitor for side effects of hypoglycemia such as increased weakness or shaking, moist skin, sweating, fast heartbeat, dizziness, sudden hunger, confusion, pale skin, numbness in mouth or tongue, irritability, nervousness, unsteadiness, nightmares, bad dreams, and restless sleep. Checking your blood sugar routinely and eating a consistent diabetic diet can help regulate blood sugars and reduce side effects. Antiplatelet- educated on high risk medication Problem:High Risk Medications Goal:Patient/caregive r will teach back high risk medication side effect and precaution education Completed patient educated on taking medication(s) as prescribed by provider. Do not stop medication or alter doses without speaking with your provider. Discuss medication effectiveness or side effect concerns with your provider and home care team. Discuss all medications you are taking, even ztzr-ibr-xmgwzaf medicines, with your provider and pharmacist since many drugs can interact with antiplatelet medications. If you forget to take a dose, DO NOT take a double dose. Take the missed dose as soon as possible on the same day. DO NOT take a double dose the next day to make up for the missed dose. Watch for signs of abnormal or excessive bleeding and bruising (refer to Bleeding Precautions education). Call your health care provider right away if you suspect something is wrong. Antibiotic- educated on high risk medication Problem:High Risk Medications Goal:Patient/caregive r will teach back high risk medication side effect and precaution education Completed patient educated on taking medication(s) as prescribed by provider. Do not stop medication or alter doses without speaking with your provider. Discuss medication effectiveness or side effect concerns with your provider and home care team. Take the full dispensed amount even if you start feeling better, as bacteria can become resistant to antibiotic treatment if you do not finish your prescription. Common side effects are upset stomach and diarrhea. Take your antibiotics with food unless otherwise indicated to help with indigestion. Taking an eczr-iok-lvhihiy probiotic or eating yogurt with live and active cultures three times a day can help prevent antibiotic-associated diarrhea. Call your provider immediately if you develop rashes or hives as this could be a delayed allergic reaction. Seek emergency treatment if you develop severe allergic reaction symptoms such as mouth or tongue swelling. Instruct on ongoing discharge plan Problem:Discharge Goal:Manage discharge planning Completed Ongoing Discharge plan: Discharge plan discussed with patient including frequency and duration for home SN and plan for transition to: caregiver assistance. Determine patient's Advance Directive Status Description: Patient does not have advance directives. Patient/Caregiver declined Advance Directive information. Problem:Advance Directives Goal:Patient/caregive r will make healthcare providers aware of and any changes to Advance Directives throughout certification period Completed Discussed Advance Directives with Patient and/or Caregiver. Referred patient to Home Care handbook for further information on Healthcare DPOA & Living Will. Wound Care: Perform wound care (1) Description: Wound Care Order: Wound location: perianal Wound type (etiology): abcess Order: Lightly pack perineal wound with Io doform, cover with gauze and ABD. Wash wound with soap and water or wound cleanser with each dressing change Frequency: daily Wound care to be completed by caregiver except for scheduled SN wound care visits. Measure wound/incision at least weekly. Okay to substitute comparable products from home care formulary. Problem:SN Integumentary/Wounds Goal:Patient/Caregive r will have improved healing and be free of signs and symptoms of complications Completed Completed by SN. Patient did tolerate well. Instruct patient/caregiver healing process and management measures to promote healing and avoid complications Problem:SN Integumentary/Wounds Goal:Patient/Caregive r will have improved healing and be free of signs and symptoms of complications Completed patient instructed on the following: healing process, signs and symptoms of infection, importance of good nutrition, importance of managing blood sugars, smoking cessation and when to report symptoms. Maintenance COPD Description: Reinforce Acute and Sub-acute management education. Instruct on review zone sheet, nutrition in relation to COPD management, energy conservation, pacing activities, independence in ADLs vs what caregiver should be helping with, home exercise, additional COPD resources available like chronic care clinics as found in the COPD binder. Problem:SN COPD Goal:Improved management of COPD Completed Reinforced Acute and Sub-acute management education. patient reinforced on zone sheet, nutrition in relation to COPD management and energy conservation pacing activities and Romeo in ADLs vs what caregiver should be helping with as found in the COPD binder. Continued need for Home Care Services Description: POC and certification renewed due to continuing [facility] needs. Problem:Recertificati on Goal:Ongoing review of POC and need for skilled services Completed Wound Care: Perform wound care (2) Description: Wound Care Order: Wound location: left buttocks Wound type (etiology): abcess Order: cleanse with NS pat dry pack with idoforme packing. cover with dry dressing Frequency: 3xweek and PRN for soiled Wound care to be completed by patient except for scheduled SN wound care visits. Measure wound/incision at least weekly. Okay to substitute comparable products from home care formulary. Problem:SN Integumentary/Wounds Goal:Patient/Caregive r will have improved healing and be free of signs and symptoms of complications Completed Completed by SN. Patient did tolerate well. Wound Care: Perform wound care (4) Description: Wound Care Order: Wound location: right inner thigh Wound type (etiology): Boil Order: cleanse with mild soap and water rinse pat dry pack with idoform packing and cover with dry dressing Frequency: 3xweek Wound care to be completed by patient except for scheduled SN wound care visits. Measure wound/incision at least weekly. Okay to substitute comparable products from home care formulary. Problem:SN Integumentary/Wounds Goal:Patient/Caregive r will have improved healing and be free of signs and symptoms of complications Completed Completed by SN. Patient did tolerate well. documented in this encounter [facility]'s home Plan of care note* Visit Details Visit Type -SN ROUTINE Discipline -Half-Way Problems Problem Description Start Date Status Goals Interve ntions Sepsis Disciplines: Skilled Services 08/20/2022 Active 1 goal linked to scheduled/document ed intervention 1 goal intervention scheduled/documente d in this visit Physician Specific Parameters Disciplines: Skilled Services 08/20/2022 Active 1 goal linked to scheduled/document ed intervention 1 goal intervention scheduled/documente d in this visit Diabetic Foot Care Disciplines: Skilled Services 08/20/2022 Active 1 goal linked to scheduled/document ed intervention 1 goal intervention scheduled/documente d in this visit Discharge Disciplines: Skilled Services 08/20/2022 Active 1 goal linked to scheduled/document ed intervention 1 goal intervention scheduled/documente d in this visit SN Integumentary/W ounds Disciplines: SN 08/20/2022 Active 1 goal linked to scheduled/document ed intervention 1 goal intervention scheduled/documente d in this visit SN COPD Disciplines: SN 09/22/2022 Active 1 goal linked to scheduled/document ed intervention 1 goal intervention scheduled/documente d in this visit Goals Goal Associated Problem Outcome Goal Met? Visit Notes Patient/caregiver will be able to identify and report symptoms of sepsis Description: Patient/caregiver will be able to identify signs/symptoms of sepsis infection and will verbalize actions to take if suspected by 12/17/22. Sepsis No Patient to maintain parameters within physician-specified ranges throughout certification period Physician Specific Parameters No Manage diabetic foot care Description: Patient/caregiver will demonstrate basic understanding of and compliance with diabetic self-care management as evidenced by verbalizing purpose of daily foot care and assessment by . Diabetic Foot Care No Manage discharge planning Description: Patient/caregiver will verbalize understanding of ongoing discharge plan provided related to disease management, arrangements for outpatient and/or community services, obtaining medications, supplies, and DME, as needed throughout certification period. Discharge No Patient/Caregiver will have improved healing and be free of signs and symptoms of complications Description: Patient/caregiver will verbalize management strategies to promote wound healing & prevent complications as evidenced by improved healing & no complications by 12-17-22. SN Integumentary/Wounds No Improved management of COPD Description: Improve COPD management as evidenced by decreased reports of dyspnea, medication compliance, and patient able to teach back strategies to manage condition. Goal to be achieved by 12-17-22 SN COPD No Interventions Intervention Associated Problem/Goal Status Variance Visit Notes Risk of Sepsis Description: Patient is at risk for sepsis. Monitor closely for s/s of sepsis. Problem:Sepsis Goal:Patient/caregiver will be able to identify and report symptoms of sepsis Completed SPO2 Description: Notify if pulse ox is <92% at rest. Problem:Physician Specific Parameters Goal:Patient to maintain parameters within physician-specified ranges throughout certification period Completed Monitor lower extremities for skin lesions and educate on proper foot care Problem:Diabetic Foot Care Goal:Manage diabetic foot care Completed patient instructed on diabetic foot care including daily skin inspection, wearing proper footwear/avoiding going barefoot, wash/dry feet thoroughly, applying moisturizer, avoiding between toes and toenail care. Instruct on ongoing discharge plan Problem:Discharge Goal:Manage discharge planning Completed Ongoing Discharge plan: Discharge plan discussed with patient including frequency and duration for home SN and plan for transition to: caregiver assistance. Wound Care: Perform wound care (1) Description: Wound Care Order: Wound location: perianal Wound type (etiology): abcess Order: Lightly pack perineal wound with Io doform, cover with gauze and ABD. Wash wound with soap and water or wound cleanser with each dressing change Frequency: daily Wound care to be completed by caregiver except for scheduled SN wound care visits. Measure wound/incision at least weekly. Okay to substitute comparable products from home care formulary. Problem:SN Integumentary/Wounds Goal:Patient/Caregiver will have improved healing and be free of signs and symptoms of complications Completed Completed by SN. Patient did tolerate well. Maintenance COPD Description: Reinforce Acute and Sub-acute management education. Instruct on review zone sheet, nutrition in relation to COPD management, energy conservation, pacing activities, independence in ADLs vs what caregiver should be helping with, home exercise, additional COPD resources available like chronic care clinics as found in the COPD binder. Problem:SN COPD Goal:Improved management of COPD Completed Reinforced Acute and Sub-acute management education. patient reinforced on nutrition in relation to COPD management and energy conservation pacing activities and Romeo in ADLs vs what caregiver should be helping with as found in the COPD binder. [facility] Visit Details Visit Type -SN ROUTINE Discipline -Half-Way Problems Problem Description Start Date Status Goals Interve ntions Medication Education Disciplines: Skilled Services 08/20/2022 Active 1 goal linked to scheduled/documen pawan intervention 1 goal intervention scheduled/document ed in this visit Sepsis Disciplines: Skilled Services 08/20/2022 Active 1 goal linked to scheduled/documen pawan intervention 1 goal intervention scheduled/document ed in this visit Physician Specific Parameters Disciplines: Skilled Services 08/20/2022 Active 1 goal linked to scheduled/documen pawan intervention 1 goal intervention scheduled/document ed in this visit Risk for Falls Disciplines: Skilled Services 08/20/2022 Active 1 goal linked to scheduled/documen pawan intervention 1 goal intervention scheduled/document ed in this visit Pain Disciplines: Skilled Services 08/20/2022 Active 1 goal linked to scheduled/documen pawan intervention 1 goal intervention scheduled/document ed in this visit Diabetic Foot Care Disciplines: Skilled Services 08/20/2022 Active 1 goal linked to scheduled/documen pawan intervention 1 goal intervention scheduled/document ed in this visit Oxygen Disciplines: Skilled Services 08/20/2022 Active 1 goal linked to scheduled/documen pawan intervention 1 goal intervention scheduled/document ed in this visit Nutrition/Hydration Disciplines: Skilled Services 08/20/2022 Active 1 goal linked to scheduled/documen pawan intervention 1 goal intervention scheduled/document ed in this visit High Risk Medications Disciplines: Skilled Services 08/20/2022 Active 1 goal linked to scheduled/documen pawan intervention 4 goal interventions scheduled/document ed in this visit Discharge Disciplines: Skilled Services 08/20/2022 Active 1 goal linked to scheduled/documen pawan intervention 1 goal intervention scheduled/document ed in this visit Advance Directives Disciplines: Skilled Services 08/20/2022 Active 1 goal linked to scheduled/documen pawan intervention 1 goal intervention scheduled/document ed in this visit SN Edema Disciplines: SN 08/20/2022 Active 1 goal linked to scheduled/documen pawan intervention 1 goal intervention scheduled/document ed in this visit SN Integumentary/Wound s Disciplines: SN 08/20/2022 Active 1 goal linked to scheduled/documen pawan intervention 3 goal interventions scheduled/document ed in this visit SN Diabetes Disciplines: SN 08/20/2022 Active 1 goal linked to scheduled/documen pawan intervention 1 goal intervention scheduled/document ed in this visit SN Cardiovascular Condition Disciplines: SN 08/20/2022 Active 1 goal linked to scheduled/documen pawan intervention 1 goal intervention scheduled/document ed in this visit SN Learning Assessment Disciplines: SN 08/20/2022 Active 1 goal linked to scheduled/documen pawan intervention 1 goal intervention scheduled/document ed in this visit SN COPD Disciplines: SN 09/22/2022 Active 1 goal linked to scheduled/documen pawan intervention 3 goal interventions scheduled/document ed in this visit Recertification Disciplines: Skilled Services 10/17/2022 Active 1 goal linked to scheduled/documen pawan intervention 1 goal intervention scheduled/document ed in this visit SN Integumentary/Wound s Disciplines: SN 11/09/2022 Active 1 goal linked to scheduled/documen pawan intervention 1 goal intervention scheduled/document ed in this visit SN Integumentary/Wound s Disciplines: SN 11/11/2022 Active 1 goal linked to scheduled/documen pawan intervention 1 goal intervention scheduled/document ed in this visit SN Integumentary/Wound s Disciplines: SN 11/27/2022 Active 1 goal linked to scheduled/documen pawan intervention 1 goal intervention scheduled/document ed in this visit Goals Goal Associated Problem Outcome Goal Met? Visit Notes Patient/caregiver will demonstrate ability to obtain, store, identify and administer ordered medications, keep accurate medication list in home, and adhere to medication schedule Description: Patient/caregiver will demonstrate ability to obtain, store, identify and administer ordered medications, keep accurate medication list in home, and adhere to medication schedule by 12/17/22. Medication Education No Patient/caregiver will be able to identify and report symptoms of sepsis Description: Patient/caregiver will be able to identify signs/symptoms of sepsis infection and will verbalize actions to take if suspected by 12/17/22. Sepsis No Patient to maintain parameters within physician-specified ranges throughout certification period Physician Specific Parameters No Manage Risk for falls Description: Patient/caregiver will verbalize knowledge of individualized fall prevention strategies by 12/17/22. Risk for Falls No Manage Pain Description: Patient/caregiver will verbalize knowledge and understanding of appropriate techniques to control pain, including pain medication and non-pharmacological techniques. Patient will verbalize or demonstrate an acceptable level of pain as evidenced by a pain score of 0-3/10 and improvement in ability to perform activities of daily living to be achieved by 12/17/22. Pain No Manage diabetic foot care Description: Patient/caregiver will demonstrate basic understanding of and compliance with diabetic self-care management as evidenced by verbalizing purpose of daily foot care and assessment by . Diabetic Foot Care No Manage oxygen Description: Patient/caregiver will use oxygen safely and effectively in home by verbalizing and demonstrating oxygen safety by 12/17/22. Oxygen No Manage Nutrition/Hydration Description: Patient/caregiver will verbalize/demonstrate knowledge of prescribed diet and/or healthy nutrition to be achieved by 12/17/22. Nutrition/Hydration No Patient/caregiver will teach back high risk medication side effect and precaution education High Risk Medications No Manage discharge planning Description: Patient/caregiver will verbalize understanding of ongoing discharge plan provided related to disease management, arrangements for outpatient and/or community services, obtaining medications, supplies, and DME, as needed throughout certification period. Discharge No Patient/caregiver will make healthcare providers aware of and any changes to Advance Directives throughout certification period Advance Directives No Patient will have improved edema management Description: Patient/caregiver will demonstrate an understanding of edema management strategies as evidenced by resolution or stabilization of edema by 12-17-22. SN Edema No Patient/Caregiver will have improved healing and be free of signs and symptoms of complications Description: Patient/caregiver will verbalize management strategies to promote wound healing & prevent complications as evidenced by improved healing & no complications by 12-17-22. SN Integumentary/Wounds No Improved management of diabetes Description: Improve diabetic management as evidenced by patient/caregiver able to teach back diabetic management strategies by 12/17/22. SN Diabetes No Improved management of cardiovascular disease Description: Improve patient/caregiver management of cardiac disease as evidenced by patient/caregiver ability to teach back cardiac management strategies by . SN Cardiovascular Condition No Demonstrate understanding of education Description: Patient and/or caregiver will verbalize understanding of educational instruction provided throughout certification period. SN Learning Assessment No Improved management of COPD Description: Improve COPD management as evidenced by decreased reports of dyspnea, medication compliance, and patient able to teach back strategies to manage condition. Goal to be achieved by 12-17-22 SN COPD No Ongoing review of POC and need for skilled services Recertification No Patient/Caregiver will have improved healing and be free of signs and symptoms of complications Description: Patient/caregiver will verbalize management strategies to promote wound healing & prevent complications as evidenced by improved healing & no complications by 11/30/22. SN Integumentary/Wounds No Patient/Caregiver will have improved healing and be free of signs and symptoms of complications Description: Patient/caregiver will verbalize management strategies to promote wound healing & prevent complications as evidenced by improved healing & no complications by 12-17-22. SN Integumentary/Wounds No Patient/Caregiver will have improved healing and be free of signs and symptoms of complications Description: Patient/caregiver will verbalize management strategies to promote wound healing & prevent complications as evidenced by improved healing & no complications by 5-17-23. SN Integumentary/Wounds No Interventions Intervention Associated Problem/Goal Status Variance Visit Notes Medication Education Description: Evaluate/instruct patient/caregiver on obtaining, storing, identifying and administering ordered medications as well as keeping accurate medication list in the home and adhereing to medication schedule Problem:Medication Education Goal:Patient/caregive r will demonstrate ability to obtain, store, identify and administer ordered medications, keep accurate medication list in home, and adhere to medication schedule Completed Patient instructed on importance of keeping accurate medication list in home, adhering to medication schedule and proper storage of medications. Risk of Sepsis Description: Patient is at risk for sepsis. Monitor closely for s/s of sepsis. Problem:Sepsis Goal:Patient/caregive r will be able to identify and report symptoms of sepsis Completed SPO2 Description: Notify if pulse ox is <92% at rest. Problem:Physician Specific Parameters Goal:Patient to maintain parameters within physician-specified ranges throughout certification period Completed Instruct on individual fall risk factors and strategies to prevent falls and injuries caused by falls. Problem:Risk for Falls Goal:Manage Risk for falls Completed SN: Patient instructed on Eliminating Environmental Hazards: Keep pathways clear, Keep pets out of pathways, Keep rooms and walkways well lit, Wear supportive shoes or non-skid socks and Keep frequently used items within reach Instruct on pain and instruct on strategies to control pain Problem:Pain Goal:Manage Pain Completed patient instructed on techniques to control pain including Pharmacological measures and Non-Pharmacological measures; rest, positioning/elevation, mobility/therapeutic exercise and distraction. Monitor lower extremities for skin lesions and educate on proper foot care Problem:Diabetic Foot Care Goal:Manage diabetic foot care Completed patient instructed on diabetic foot care including daily skin inspection, wearing proper footwear/avoiding going barefoot, wash/dry feet thoroughly, applying moisturizer, avoiding between toes and toenail care. Instruct on fire safety and safe and effective use of oxygen in the home Problem:Oxygen Goal:Manage oxygen Completed patient instructed on: findings of safety risk assessment, causes of fires, firerisks for neighboring residences and buildings, precautions that can prevent fire-related injuries, oxygen safety as outlined in Home Care Patient Handbook and recommendations for specific safety risks identified in the home: maintenance of working smoke detectors and changing batteries, establishment of fire escape plan, telephone accessibility and implementation of no-smoking policy in home, including e-cigarettes and posting of No-Smoking signs on entrance doors patient demonstrate compliance with safety recommendations. Define patient s appetite/hydration status and implement strategies to improve compliance with prescribed diet and/or healthy nutrition. Problem:Nutrition/Hyd ration Goal:Manage Nutrition/Hydration Completed reinforced patient on implementing strategies to comply with healthy nutrition and adequate hydration Opioids- educated on high risk medication Problem:High Risk Medications Goal:Patient/caregive r will teach back high risk medication side effect and precaution education Completed patient educated on taking medication(s) as prescribed by provider. Do not stop medication or alter doses without speaking with your provider. Discuss medication effectiveness or side effect concerns with your provider and home care team. Only take opioids as prescribed, do not share your medications, and take proper precautions in storing and properly disposing of opioids once no longer needed. Possible side effects of opioid medication including sedation, decreased rate of breathing, and constipation. Report over sedation to prescribing provider and practice deep breathing techniques every hour while awake. Prevent constipation by increasing water and fiber intake, increasing activity as tolerated, and use stool softener(s) as prescribed. Hypoglycemic (including insulin)- educated on high risk medication Problem:High Risk Medications Goal:Patient/caregive r will teach back high risk medication side effect and precaution education Completed patient educated on taking medication(s) as prescribed by provider. Do not stop medication or skip/alter doses without speaking with your provider. Discuss medication effectiveness or side effect concerns with your provider and home care team. Check blood sugars and keep log as ordered by provider. Monitor for side effects of hypoglycemia such as increased weakness or shaking, moist skin, sweating, fast heartbeat, dizziness, sudden hunger, confusion, pale skin, numbness in mouth or tongue, irritability, nervousness, unsteadiness, nightmares, bad dreams, and restless sleep. Checking your blood sugar routinely and eating a consistent diabetic diet can help regulate blood sugars and reduce side effects. Antiplatelet- educated on high risk medication Problem:High Risk Medications Goal:Patient/caregive r will teach back high risk medication side effect and precaution education Completed patient educated on taking medication(s) as prescribed by provider. Do not stop medication or alter doses without speaking with your provider. Discuss medication effectiveness or side effect concerns with your provider and home care team. Discuss all medications you are taking, even [id number] medicines, with your provider and pharmacist since many drugs can interact with antiplatelet medications. If you forget to take a dose, DO NOT take a double dose. Take the missed dose as soon as possible on the same day. DO NOT take a double dose the next day to make up for the missed dose. Watch for signs of abnormal or excessive bleeding and bruising (refer to Bleeding Precautions education). Call your health care provider right away if you suspect something is wrong. Antibiotic- educated on high risk medication Problem:High Risk Medications Goal:Patient/caregive r will teach back high risk medication side effect and precaution education Completed patient educated on taking medication(s) as prescribed by provider. Do not stop medication or alter doses without speaking with your provider. Discuss medication effectiveness or side effect concerns with your provider and home care team. Take the full dispensed amount even if you start feeling better, as bacteria can become resistant to antibiotic treatment if you do not finish your prescription. Common side effects are upset stomach and diarrhea. Take your antibiotics with food unless otherwise indicated to help with indigestion. Taking an [id number] probiotic or eating yogurt with live and active cultures three times a day can help prevent antibiotic-associated diarrhea. Call your provider immediately if you develop rashes or hives as this could be a delayed allergic reaction. Seek emergency treatment if you develop severe allergic reaction symptoms such as mouth or tongue swelling. Instruct on ongoing discharge plan Problem:Discharge Goal:Manage discharge planning Completed Ongoing Discharge plan: Discharge plan discussed with patient including frequency and duration for home SN and plan for transition to: caregiver assistance. Determine patient's Advance Directive Status Description: Patient does not have advance directives. Patient/Caregiver declined Advance Directive information. Problem:Advance Directives Goal:Patient/caregive r will make healthcare providers aware of and any changes to Advance Directives throughout certification period Completed Discussed Advance Directives with Patient and/or Caregiver. Referred patient to Home Care handbook for further information on Healthcare DPOA & Living Will. Assess and instruct on measures to reduce edema Problem:SN Edema Goal:Patient will have improved edema management Completed patient instructed on elevation, compression, diet, medication compliance and benefits of activity. Wound Care: Perform wound care (1) Description: Wound Care Order: Wound location: perianal Wound type (etiology): abcess Order: Lightly pack perineal wound with Io doform, cover with gauze and ABD. Wash wound with soap and water or wound cleanser with each dressing change Frequency: daily Wound care to be completed by caregiver except for scheduled SN wound care visits. Measure wound/incision at least weekly. Okay to substitute comparable products from home care formulary. Problem:SN Integumentary/Wounds Goal:Patient/Caregive r will have improved healing and be free of signs and symptoms of complications Completed Completed by SN. Patient did tolerate well. Instruct patient/caregiver healing process and management measures to promote healing and avoid complications Problem:SN Integumentary/Wounds Goal:Patient/Caregive r will have improved healing and be free of signs and symptoms of complications Completed patient instructed on the following: healing process, signs and symptoms of infection, importance of good nutrition, importance of managing blood sugars, smoking cessation and when to report symptoms. Instruct Patient/Caregiver on wound/incision care procedure as ordered by physician Problem:SN Integumentary/Wounds Goal:Patient/Caregive r will have improved healing and be free of signs and symptoms of complications Completed patient instructed on wound care as ordered by Physician. Instruct on diabetes disease process and management of chronic condition Description: Patient has needs for education of diabetes. Problem:SN Diabetes Goal:Improved management of diabetes Completed patient and caregiver assessed and reinforced on diabetes disease process, diet education, how to carb count, recogonizing s/s of hypoglycemia and hyperglycemia and managing sick days as found in the diabetes self-care booklets. Instruct on cardiovascular disease process and management of condition Description: Patient has following cardiac diagnosis(es): CAD. Problem:SN Cardiovascular Condition Goal:Improved management of cardiovascular disease Completed patient instructed on cardiac disease process, self monitoring & symptom reporting and Cardiac Diet. Instruct and educate on knowledge deficits Problem:SN Learning Assessment Goal:Demonstrate understanding of education Completed patient verbalize and/or demonstrate understanding of nursing education completed today. Education methods include: verbal cues. Further education required to improve knowledge and compliance with diabetic care management, fall prevention/home safety strategies and incision/wound care management. Maintenance COPD Description: Reinforce Acute and Sub-acute management education. Instruct on review zone sheet, nutrition in relation to COPD management, energy conservation, pacing activities, independence in ADLs vs what caregiver should be helping with, home exercise, additional COPD resources available like chronic care clinics as found in the COPD binder. Problem:SN COPD Goal:Improved management of COPD Completed Reinforced Acute and Sub-acute management education. patient reinforced on zone sheet, nutrition in relation to COPD management and energy conservation pacing activities and Romeo in ADLs vs what caregiver should be helping with as found in the COPD binder. Sub-acute COPD Description: Reinforce Acute COPD management education. Instruct on zone sheet, methods to reduce infection risks, anxiety management including relaxation techniques, importance of sleep, stress reduction, and coping strategies for living with COPD as found in the COPD binder. Problem:SN COPD Goal:Improved management of COPD Completed Reinforced Acute COPD management education. patient reinforced on zone sheet, methods to reduce infection risks, anxiety management including: relaxation techniques, importance of sleep and stress reduction and coping strategies for living with COPD as found in the COPD binder. Acute COPD Description: Instruct on defintion of COPD, signs and symptoms of COPD exacerbation, use of zone sheet, use of MDIs, difference between rescue vs maintenance inhalers, use of nebulizer, smoking cessation, breathing management including pursed lip breathing, diaphragmatic breathing, positioning to reduce SOB, controlled coughing, use of incentive spirometer, and use of acapela as found in the COPD binder. Problem:SN COPD Goal:Improved management of COPD Completed patient reinforced on defintion of COPD, signs and symptoms of COPD exacerbation, difference between rescue vs maintenance inhalers, use of nebulizer, smoking cessation and breathing management: pursed lip breathing, diaphragmatic breathing and positioning to reduce SOB as found in the COPD binder. Continued need for Home Care Services Description: POC and certification renewed due to continuing [facility] needs. Problem:Recertificati on Goal:Ongoing review of POC and need for skilled services Completed Instruct patient/caregiver healing process and management measures to promote healing and avoid complications Problem:SN Integumentary/Wounds Goal:Patient/Caregive r will have improved healing and be free of signs and symptoms of complications Completed patient and caregiver instructed on the following: healing process, signs and symptoms of infection, importance of good nutrition, importance of managing blood sugars, smoking cessation and when to report symptoms. Wound Care: Perform wound care (2) Description: Wound Care Order: Wound location: left buttocks Wound type (etiology): abcess Order: cleanse with NS pat dry pack with idoforme packing. cover with dry dressing Frequency: 3xweek and PRN for soiled Wound care to be completed by patient except for scheduled SN wound care visits. Measure wound/incision at least weekly. Okay to substitute comparable products from home care formulary. Problem:SN Integumentary/Wounds Goal:Patient/Caregive r will have improved healing and be free of signs and symptoms of complications Completed Completed by SN. Patient did tolerate well. Wound Care: Perform wound care (4) Description: Wound Care Order: Wound location: right inner thigh Wound type (etiology): Boil Order: cleanse with mild soap and water rinse pat dry pack with idoform packing and cover with dry dressing Frequency: 3xweek Wound care to be completed by patient except for scheduled SN wound care visits. Measure wound/incision at least weekly. Okay to substitute comparable products from home care formulary. Problem:SN Integumentary/Wounds Goal:Patient/Caregive r will have improved healing and be free of signs and symptoms of complications Completed Completed by SN. Patient did tolerate well. documented in this encounter [facility]'s home Plan of care note* Visit Details Visit Type -SN ROUTINE Discipline -Half-Way Problems Problem Description Start Date Status Goals Interve ntions Medication Education Disciplines: Skilled Services 08/20/2022 Active 1 goal linked to scheduled/documen pawan intervention 1 goal intervention scheduled/document ed in this visit Sepsis Disciplines: Skilled Services 08/20/2022 Active 1 goal linked to scheduled/documen pawan intervention 1 goal intervention scheduled/document ed in this visit Physician Specific Parameters Disciplines: Skilled Services 08/20/2022 Active 1 goal linked to scheduled/documen pawan intervention 1 goal intervention scheduled/document ed in this visit Risk for Falls Disciplines: Skilled Services 08/20/2022 Active 1 goal linked to scheduled/documen pawan intervention 1 goal intervention scheduled/document ed in this visit Pain Disciplines: Skilled Services 08/20/2022 Active 1 goal linked to scheduled/documen pawan intervention 1 goal intervention scheduled/document ed in this visit Diabetic Foot Care Disciplines: Skilled Services 08/20/2022 Active 1 goal linked to scheduled/documen pawan intervention 1 goal intervention scheduled/document ed in this visit Oxygen Disciplines: Skilled Services 08/20/2022 Active 1 goal linked to scheduled/documen pawan intervention 1 goal intervention scheduled/document ed in this visit Nutrition/Hydration Disciplines: Skilled Services 08/20/2022 Active 1 goal linked to scheduled/documen pawan intervention 1 goal intervention scheduled/document ed in this visit High Risk Medications Disciplines: Skilled Services 08/20/2022 Active 1 goal linked to scheduled/documen pawan intervention 4 goal interventions scheduled/document ed in this visit Discharge Disciplines: Skilled Services 08/20/2022 Active 1 goal linked to scheduled/documen pawan intervention 1 goal intervention scheduled/document ed in this visit SN Edema Disciplines: SN 08/20/2022 Active 1 goal linked to scheduled/documen pawan intervention 1 goal intervention scheduled/document ed in this visit SN Integumentary/Wound s Disciplines: SN 08/20/2022 Active 1 goal linked to scheduled/documen pawan intervention 2 goal interventions scheduled/document ed in this visit SN Diabetes Disciplines: SN 08/20/2022 Active 1 goal linked to scheduled/documen pawan intervention 1 goal intervention scheduled/document ed in this visit SN Cardiovascular Condition Disciplines: SN 08/20/2022 Active 1 goal linked to scheduled/documen pawan intervention 1 goal intervention scheduled/document ed in this visit SN Learning Assessment Disciplines: SN 08/20/2022 Active 1 goal linked to scheduled/documen pawan intervention 1 goal intervention scheduled/document ed in this visit SN COPD Disciplines: SN 09/22/2022 Active 1 goal linked to scheduled/documen pawan intervention 3 goal interventions scheduled/document ed in this visit Recertification Disciplines: Skilled Services 10/17/2022 Active 1 goal linked to scheduled/documen pawan intervention 1 goal intervention scheduled/document ed in this visit SN Integumentary/Wound s Disciplines: SN 11/09/2022 Active 1 goal linked to scheduled/documen pawan intervention 1 goal intervention scheduled/document ed in this visit SN Integumentary/Wound s Disciplines: SN 11/11/2022 Active 1 goal linked to scheduled/documen pawan intervention 1 goal intervention scheduled/document ed in this visit SN Integumentary/Wound s Disciplines: SN 11/27/2022 Active 1 goal linked to scheduled/documen pawan intervention 1 goal intervention scheduled/document ed in this visit Goals Goal Associated Problem Outcome Goal Met? Visit Notes Patient/caregiver will demonstrate ability to obtain, store, identify and administer ordered medications, keep accurate medication list in home, and adhere to medication schedule Description: Patient/caregiver will demonstrate ability to obtain, store, identify and administer ordered medications, keep accurate medication list in home, and adhere to medication schedule by 12/17/22. Medication Education No Patient/caregiver will be able to identify and report symptoms of sepsis Description: Patient/caregiver will be able to identify signs/symptoms of sepsis infection and will verbalize actions to take if suspected by 12/17/22. Sepsis No Patient to maintain parameters within physician-specified ranges throughout certification period Physician Specific Parameters No Manage Risk for falls Description: Patient/caregiver will verbalize knowledge of individualized fall prevention strategies by 12/17/22. Risk for Falls No Manage Pain Description: Patient/caregiver will verbalize knowledge and understanding of appropriate techniques to control pain, including pain medication and non-pharmacological techniques. Patient will verbalize or demonstrate an acceptable level of pain as evidenced by a pain score of 0-3/10 and improvement in ability to perform activities of daily living to be achieved by 12/17/22. Pain No Manage diabetic foot care Description: Patient/caregiver will demonstrate basic understanding of and compliance with diabetic self-care management as evidenced by verbalizing purpose of daily foot care and assessment by . Diabetic Foot Care No Manage oxygen Description: Patient/caregiver will use oxygen safely and effectively in home by verbalizing and demonstrating oxygen safety by 12/17/22. Oxygen No Manage Nutrition/Hydration Description: Patient/caregiver will verbalize/demonstrate knowledge of prescribed diet and/or healthy nutrition to be achieved by 12/17/22. Nutrition/Hydration No Patient/caregiver will teach back high risk medication side effect and precaution education High Risk Medications No Manage discharge planning Description: Patient/caregiver will verbalize understanding of ongoing discharge plan provided related to disease management, arrangements for outpatient and/or community services, obtaining medications, supplies, and DME, as needed throughout certification period. Discharge No Patient will have improved edema management Description: Patient/caregiver will demonstrate an understanding of edema management strategies as evidenced by resolution or stabilization of edema by 12-17-22. SN Edema No Patient/Caregiver will have improved healing and be free of signs and symptoms of complications Description: Patient/caregiver will verbalize management strategies to promote wound healing & prevent complications as evidenced by improved healing & no complications by 12-17-22. SN Integumentary/Wounds No Improved management of diabetes Description: Improve diabetic management as evidenced by patient/caregiver able to teach back diabetic management strategies by 12/17/22. SN Diabetes No Improved management of cardiovascular disease Description: Improve patient/caregiver management of cardiac disease as evidenced by patient/caregiver ability to teach back cardiac management strategies by . SN Cardiovascular Condition No Demonstrate understanding of education Description: Patient and/or caregiver will verbalize understanding of educational instruction provided throughout certification period. SN Learning Assessment No Improved management of COPD Description: Improve COPD management as evidenced by decreased reports of dyspnea, medication compliance, and patient able to teach back strategies to manage condition. Goal to be achieved by 12-17-22 SN COPD No Ongoing review of POC and need for skilled services Recertification No Patient/Caregiver will have improved healing and be free of signs and symptoms of complications Description: Patient/caregiver will verbalize management strategies to promote wound healing & prevent complications as evidenced by improved healing & no complications by 11/30/22. SN Integumentary/Wounds No Patient/Caregiver will have improved healing and be free of signs and symptoms of complications Description: Patient/caregiver will verbalize management strategies to promote wound healing & prevent complications as evidenced by improved healing & no complications by 12-17-22. SN Integumentary/Wounds No Patient/Caregiver will have improved healing and be free of signs and symptoms of complications Description: Patient/caregiver will verbalize management strategies to promote wound healing & prevent complications as evidenced by improved healing & no complications by 12-17-22. SN Integumentary/Wounds No Interventions Intervention Associated Problem/Goal Status Variance Visit Notes Medication Education Description: Evaluate/instruct patient/caregiver on obtaining, storing, identifying and administering ordered medications as well as keeping accurate medication list in the home and adhereing to medication schedule Problem:Medication Education Goal:Patient/caregive r will demonstrate ability to obtain, store, identify and administer ordered medications, keep accurate medication list in home, and adhere to medication schedule Completed Patient instructed on importance of keeping accurate medication list in home, adhering to medication schedule and proper storage of medications. Risk of Sepsis Description: Patient is at risk for sepsis. Monitor closely for s/s of sepsis. Problem:Sepsis Goal:Patient/caregive r will be able to identify and report symptoms of sepsis Completed SPO2 Description: Notify if pulse ox is <92% at rest. Problem:Physician Specific Parameters Goal:Patient to maintain parameters within physician-specified ranges throughout certification period Completed Instruct on individual fall risk factors and strategies to prevent falls and injuries caused by falls. Problem:Risk for Falls Goal:Manage Risk for falls Completed SN: Patient instructed on Eliminating Environmental Hazards: Keep pathways clear, Keep pets out of pathways, Keep rooms and walkways well lit, Wear supportive shoes or non-skid socks and Keep frequently used items within reach Instruct on pain and instruct on strategies to control pain Problem:Pain Goal:Manage Pain Completed patient instructed on techniques to control pain including Pharmacological measures and Non-Pharmacological measures; rest, positioning/elevation, distraction and use of DME/assistive devices. Monitor lower extremities for skin lesions and educate on proper foot care Problem:Diabetic Foot Care Goal:Manage diabetic foot care Completed patient instructed on diabetic foot care including daily skin inspection, wearing proper footwear/avoiding going barefoot, wash/dry feet thoroughly, applying moisturizer, avoiding between toes and toenail care. Instruct on fire safety and safe and effective use of oxygen in the home Problem:Oxygen Goal:Manage oxygen Completed patient instructed on: findings of safety risk assessment, causes of fires, firerisks for neighboring residences and buildings, precautions that can prevent fire-related injuries, oxygen safety as outlined in Home Care Patient Handbook and recommendations for specific safety risks identified in the home: implementation of no-smoking policy in home, including e-cigarettes and posting of No-Smoking signs on entrance doors patient demonstrate compliance with safety recommendations. Define patient s appetite/hydration status and implement strategies to improve compliance with prescribed diet and/or healthy nutrition. Problem:Nutrition/Hyd ration Goal:Manage Nutrition/Hydration Completed reinforced patient on implementing strategies to comply with healthy nutrition and adequate hydration Opioids- educated on high risk medication Problem:High Risk Medications Goal:Patient/caregive r will teach back high risk medication side effect and precaution education Completed patient educated on taking medication(s) as prescribed by provider. Do not stop medication or alter doses without speaking with your provider. Discuss medication effectiveness or side effect concerns with your provider and home care team. Only take opioids as prescribed, do not share your medications, and take proper precautions in storing and properly disposing of opioids once no longer needed. Possible side effects of opioid medication including sedation, decreased rate of breathing, and constipation. Report over sedation to prescribing provider and practice deep breathing techniques every hour while awake. Prevent constipation by increasing water and fiber intake, increasing activity as tolerated, and use stool softener(s) as prescribed. Hypoglycemic (including insulin)- educated on high risk medication Problem:High Risk Medications Goal:Patient/caregive r will teach back high risk medication side effect and precaution education Completed patient educated on taking medication(s) as prescribed by provider. Do not stop medication or skip/alter doses without speaking with your provider. Discuss medication effectiveness or side effect concerns with your provider and home care team. Check blood sugars and keep log as ordered by provider. Monitor for side effects of hypoglycemia such as increased weakness or shaking, moist skin, sweating, fast heartbeat, dizziness, sudden hunger, confusion, pale skin, numbness in mouth or tongue, irritability, nervousness, unsteadiness, nightmares, bad dreams, and restless sleep. Checking your blood sugar routinely and eating a consistent diabetic diet can help regulate blood sugars and reduce side effects. Antiplatelet- educated on high risk medication Problem:High Risk Medications Goal:Patient/caregive r will teach back high risk medication side effect and precaution education Completed patient educated on taking medication(s) as prescribed by provider. Do not stop medication or alter doses without speaking with your provider. Discuss medication effectiveness or side effect concerns with your provider and home care team. Discuss all medications you are taking, even [id number] medicines, with your provider and pharmacist since many drugs can interact with antiplatelet medications. If you forget to take a dose, DO NOT take a double dose. Take the missed dose as soon as possible on the same day. DO NOT take a double dose the next day to make up for the missed dose. Watch for signs of abnormal or excessive bleeding and bruising (refer to Bleeding Precautions education). Call your health care provider right away if you suspect something is wrong. Antibiotic- educated on high risk medication Problem:High Risk Medications Goal:Patient/caregive r will teach back high risk medication side effect and precaution education Completed patient educated on taking medication(s) as prescribed by provider. Do not stop medication or alter doses without speaking with your provider. Discuss medication effectiveness or side effect concerns with your provider and home care team. Take the full dispensed amount even if you start feeling better, as bacteria can become resistant to antibiotic treatment if you do not finish your prescription. Common side effects are upset stomach and diarrhea. Take your antibiotics with food unless otherwise indicated to help with indigestion. Taking an nplt-lhd-aydhiml probiotic or eating yogurt with live and active cultures three times a day can help prevent antibiotic-associated diarrhea. Call your provider immediately if you develop rashes or hives as this could be a delayed allergic reaction. Seek emergency treatment if you develop severe allergic reaction symptoms such as mouth or tongue swelling. Instruct on ongoing discharge plan Problem:Discharge Goal:Manage discharge planning Completed Ongoing Discharge plan: Discharge plan discussed with patient including frequency and duration for home SN and plan for transition to: caregiver assistance. Assess and instruct on measures to reduce edema Problem:SN Edema Goal:Patient will have improved edema management Completed patient instructed on elevation, compression, diet, medication compliance and benefits of activity. Wound Care: Perform wound care (1) Description: Wound Care Order: Wound location: perianal Wound type (etiology): abcess Order: Lightly pack perineal wound with Io doform, cover with gauze and ABD. Wash wound with soap and water or wound cleanser with each dressing change Frequency: daily Wound care to be completed by caregiver except for scheduled SN wound care visits. Measure wound/incision at least weekly. Okay to substitute comparable products from home care formulary. Problem:SN Integumentary/Wounds Goal:Patient/Caregive r will have improved healing and be free of signs and symptoms of complications Completed Completed by SN. Patient did tolerate well. Instruct patient/caregiver healing process and management measures to promote healing and avoid complications Problem:SN Integumentary/Wounds Goal:Patient/Caregive r will have improved healing and be free of signs and symptoms of complications Completed patient instructed on the following: healing process, signs and symptoms of infection, importance of good nutrition, importance of managing blood sugars, smoking cessation and when to report symptoms. Instruct on diabetes disease process and management of chronic condition Description: Patient has needs for education of diabetes. Problem:SN Diabetes Goal:Improved management of diabetes Completed patient assessed and reinforced on diabetes disease process, diet education, how to carb count, recogonizing s/s of hypoglycemia and hyperglycemia and managing sick days as found in the diabetes self-care booklets. Instruct on cardiovascular disease process and management of condition Description: Patient has following cardiac diagnosis(es): CAD. Problem:SN Cardiovascular Condition Goal:Improved management of cardiovascular disease Completed patient instructed on cardiac disease process, self monitoring & symptom reporting and Cardiac Diet. Instruct and educate on knowledge deficits Problem:SN Learning Assessment Goal:Demonstrate understanding of education Completed patient verbalize and/or demonstrate understanding of nursing education completed today. Education methods include: verbal cues. Further education required to improve knowledge and compliance with cardiac disease management, diabetic care management, fall prevention/home safety strategies and incision/wound care management. Maintenance COPD Description: Reinforce Acute and Sub-acute management education. Instruct on review zone sheet, nutrition in relation to COPD management, energy conservation, pacing activities, independence in ADLs vs what caregiver should be helping with, home exercise, additional COPD resources available like chronic care clinics as found in the COPD binder. Problem:SN COPD Goal:Improved management of COPD Completed Reinforced Acute and Sub-acute management education. patient reinforced on zone sheet, nutrition in relation to COPD management and energy conservation pacing activities and Romeo in ADLs vs what caregiver should be helping with as found in the COPD binder. Sub-acute COPD Description: Reinforce Acute COPD management education. Instruct on zone sheet, methods to reduce infection risks, anxiety management including relaxation techniques, importance of sleep, stress reduction, and coping strategies for living with COPD as found in the COPD binder. Problem:SN COPD Goal:Improved management of COPD Completed Reinforced Acute COPD management education. patient reinforced on zone sheet, methods to reduce infection risks, anxiety management including: relaxation techniques and importance of sleep and coping strategies for living with COPD as found in the COPD binder. Acute COPD Description: Instruct on defintion of COPD, signs and symptoms of COPD exacerbation, use of zone sheet, use of MDIs, difference between rescue vs maintenance inhalers, use of nebulizer, smoking cessation, breathing management including pursed lip breathing, diaphragmatic breathing, positioning to reduce SOB, controlled coughing, use of incentive spirometer, and use of acapela as found in the COPD binder. Problem:SN COPD Goal:Improved management of COPD Completed patient reinforced on defintion of COPD, signs and symptoms of COPD exacerbation, use of zone sheet, difference between rescue vs maintenance inhalers, use of nebulizer, smoking cessation and breathing management: pursed lip breathing, diaphragmatic breathing and positioning to reduce SOB as found in the COPD binder. Continued need for Home Care Services Description: POC and certification renewed due to continuing [facility] needs. Problem:Recertificati on Goal:Ongoing review of POC and need for skilled services Completed Instruct Patient/Caregiver on wound/incision care procedure as ordered by physician Description: L gluteal abscess care daily and as needed: Cleanse area in shower or with soap/water, cover with clean dry dressing and change each day and as needed for drainage. Continue this until no drainage present on dressing. Problem:SN Integumentary/Wounds Goal:Patient/Caregive r will have improved healing and be free of signs and symptoms of complications Completed patient instructed on and return demonstrated wound care as ordered by Physician. Wound Care: Perform wound care (2) Description: Wound Care Order: Wound location: left buttocks Wound type (etiology): abcess Order: cleanse with NS pat dry pack with idoforme packing. cover with dry dressing Frequency: 3xweek and PRN for soiled Wound care to be completed by patient except for scheduled SN wound care visits. Measure wound/incision at least weekly. Okay to substitute comparable products from home care formulary. Problem:SN Integumentary/Wounds Goal:Patient/Caregive r will have improved healing and be free of signs and symptoms of complications Completed Completed by SN. Patient did tolerate well. Wound Care: Perform wound care (4) Description: Wound Care Order: Wound location: right inner thigh Wound type (etiology): Boil Order: cleanse with mild soap and water rinse pat dry pack with idoform packing and cover with dry dressing Frequency: 3xweek Wound care to be completed by patient except for scheduled SN wound care visits. Measure wound/incision at least weekly. Okay to substitute comparable products from home care formulary. Problem:SN Integumentary/Wounds Goal:Patient/Caregive r will have improved healing and be free of signs and symptoms of complications Completed Completed by SN. Patient did tolerate well. documented in this encounter [facility]'s home Plan of care note* Visit Details Visit Type -SN ROUTINE Discipline -Half-Way Problems Problem Description Start Date Status Goals Interve ntions Medication Education Disciplines: Skilled Services 08/20/2022 Active 1 goal linked to scheduled/documen pawan intervention 1 goal intervention scheduled/document ed in this visit Sepsis Disciplines: Skilled Services 08/20/2022 Active 1 goal linked to scheduled/documen pawan intervention 1 goal intervention scheduled/document ed in this visit Physician Specific Parameters Disciplines: Skilled Services 08/20/2022 Active 1 goal linked to scheduled/documen pawan intervention 1 goal intervention scheduled/document ed in this visit Risk for Falls Disciplines: Skilled Services 08/20/2022 Active 1 goal linked to scheduled/documen pawan intervention 1 goal intervention scheduled/document ed in this visit Pain Disciplines: Skilled Services 08/20/2022 Active 1 goal linked to scheduled/documen pawan intervention 1 goal intervention scheduled/document ed in this visit Diabetic Foot Care Disciplines: Skilled Services 08/20/2022 Active 1 goal linked to scheduled/documen pawan intervention 1 goal intervention scheduled/document ed in this visit Oxygen Disciplines: Skilled Services 08/20/2022 Active 1 goal linked to scheduled/documen pawan intervention 1 goal intervention scheduled/document ed in this visit Nutrition/Hydration Disciplines: Skilled Services 08/20/2022 Active 1 goal linked to scheduled/documen pawan intervention 1 goal intervention scheduled/document ed in this visit High Risk Medications Disciplines: Skilled Services 08/20/2022 Active 1 goal linked to scheduled/documen pawan intervention 4 goal interventions scheduled/document ed in this visit Discharge Disciplines: Skilled Services 08/20/2022 Active 1 goal linked to scheduled/documen pawan intervention 1 goal intervention scheduled/document ed in this visit Advance Directives Disciplines: Skilled Services 08/20/2022 Active 1 goal linked to scheduled/documen pawan intervention 1 goal intervention scheduled/document ed in this visit SN Edema Disciplines: SN 08/20/2022 Active 1 goal linked to scheduled/documen pawan intervention 1 goal intervention scheduled/document ed in this visit SN Integumentary/Wound s Disciplines: SN 08/20/2022 Active 1 goal linked to scheduled/documen pawan intervention 3 goal interventions scheduled/document ed in this visit SN Diabetes Disciplines: SN 08/20/2022 Active 1 goal linked to scheduled/documen pawan intervention 1 goal intervention scheduled/document ed in this visit SN Cardiovascular Condition Disciplines: SN 08/20/2022 Active 1 goal linked to scheduled/documen pawan intervention 1 goal intervention scheduled/document ed in this visit SN Learning Assessment Disciplines: SN 08/20/2022 Active 1 goal linked to scheduled/documen pawan intervention 1 goal intervention scheduled/document ed in this visit SN COPD Disciplines: SN 09/22/2022 Active 1 goal linked to scheduled/documen pawan intervention 2 goal interventions scheduled/document ed in this visit Recertification Disciplines: Skilled Services 10/17/2022 Active 1 goal linked to scheduled/documen pawan intervention 1 goal intervention scheduled/document ed in this visit SN Integumentary/Wound s Disciplines: SN 11/11/2022 Active 1 goal linked to scheduled/documen pawan intervention 1 goal intervention scheduled/document ed in this visit SN Integumentary/Wound s Disciplines: SN 11/27/2022 Active 1 goal linked to scheduled/documen pawan intervention 1 goal intervention scheduled/document ed in this visit Goals Goal Associated Problem Outcome Goal Met? Visit Notes Patient/caregiver will demonstrate ability to obtain, store, identify and administer ordered medications, keep accurate medication list in home, and adhere to medication schedule Description: Patient/caregiver will demonstrate ability to obtain, store, identify and administer ordered medications, keep accurate medication list in home, and adhere to medication schedule by 12/17/22. Medication Education No Patient/caregiver will be able to identify and report symptoms of sepsis Description: Patient/caregiver will be able to identify signs/symptoms of sepsis infection and will verbalize actions to take if suspected by 12/17/22. Sepsis No Patient to maintain parameters within physician-specified ranges throughout certification period Physician Specific Parameters No Manage Risk for falls Description: Patient/caregiver will verbalize knowledge of individualized fall prevention strategies by 12/17/22. Risk for Falls No Manage Pain Description: Patient/caregiver will verbalize knowledge and understanding of appropriate techniques to control pain, including pain medication and non-pharmacological techniques. Patient will verbalize or demonstrate an acceptable level of pain as evidenced by a pain score of 0-3/10 and improvement in ability to perform activities of daily living to be achieved by 12/17/22. Pain No Manage diabetic foot care Description: Patient/caregiver will demonstrate basic understanding of and compliance with diabetic self-care management as evidenced by verbalizing purpose of daily foot care and assessment by . Diabetic Foot Care No Manage oxygen Description: Patient/caregiver will use oxygen safely and effectively in home by verbalizing and demonstrating oxygen safety by 12/17/22. Oxygen No Manage Nutrition/Hydration Description: Patient/caregiver will verbalize/demonstrate knowledge of prescribed diet and/or healthy nutrition to be achieved by 12/17/22. Nutrition/Hydration No Patient/caregiver will teach back high risk medication side effect and precaution education High Risk Medications No Manage discharge planning Description: Patient/caregiver will verbalize understanding of ongoing discharge plan provided related to disease management, arrangements for outpatient and/or community services, obtaining medications, supplies, and DME, as needed throughout certification period. Discharge No Patient/caregiver will make healthcare providers aware of and any changes to Advance Directives throughout certification period Advance Directives No Patient will have improved edema management Description: Patient/caregiver will demonstrate an understanding of edema management strategies as evidenced by resolution or stabilization of edema by 12-17-22. SN Edema No Patient/Caregiver will have improved healing and be free of signs and symptoms of complications Description: Patient/caregiver will verbalize management strategies to promote wound healing & prevent complications as evidenced by improved healing & no complications by 12-17-22. SN Integumentary/Wounds No Improved management of diabetes Description: Improve diabetic management as evidenced by patient/caregiver able to teach back diabetic management strategies by 12/17/22. SN Diabetes No Improved management of cardiovascular disease Description: Improve patient/caregiver management of cardiac disease as evidenced by patient/caregiver ability to teach back cardiac management strategies by . SN Cardiovascular Condition No Demonstrate understanding of education Description: Patient and/or caregiver will verbalize understanding of educational instruction provided throughout certification period. SN Learning Assessment No Improved management of COPD Description: Improve COPD management as evidenced by decreased reports of dyspnea, medication compliance, and patient able to teach back strategies to manage condition. Goal to be achieved by 12-17-22 SN COPD No Ongoing review of POC and need for skilled services Recertification No Patient/Caregiver will have improved healing and be free of signs and symptoms of complications Description: Patient/caregiver will verbalize management strategies to promote wound healing & prevent complications as evidenced by improved healing & no complications by 12-17-22. SN Integumentary/Wounds No Patient/Caregiver will have improved healing and be free of signs and symptoms of complications Description: Patient/caregiver will verbalize management strategies to promote wound healing & prevent complications as evidenced by improved healing & no complications by 12-17-22. SN Integumentary/Wounds No Interventions Intervention Associated Problem/Goal Status Variance Visit Notes Medication Education Description: Evaluate/instruct patient/caregiver on obtaining, storing, identifying and administering ordered medications as well as keeping accurate medication list in the home and adhereing to medication schedule Problem:Medication Education Goal:Patient/caregive r will demonstrate ability to obtain, store, identify and administer ordered medications, keep accurate medication list in home, and adhere to medication schedule Completed Patient and Caregiver instructed on importance of keeping accurate medication list in home and adhering to medication schedule. Risk of Sepsis Description: Patient is at risk for sepsis. Monitor closely for s/s of sepsis. Problem:Sepsis Goal:Patient/caregive r will be able to identify and report symptoms of sepsis Completed SPO2 Description: Notify if pulse ox is <92% at rest. Problem:Physician Specific Parameters Goal:Patient to maintain parameters within physician-specified ranges throughout certification period Completed Instruct on individual fall risk factors and strategies to prevent falls and injuries caused by falls. Problem:Risk for Falls Goal:Manage Risk for falls Completed SN: Patient instructed on Eliminating Environmental Hazards: Keep pathways clear, Keep pets out of pathways, Keep rooms and walkways well lit, Wear supportive shoes or non-skid socks and Keep frequently used items within reach Instruct on pain and instruct on strategies to control pain Problem:Pain Goal:Manage Pain Completed patient instructed on techniques to control pain including Pharmacological measures and Non-Pharmacological measures; rest, positioning/elevation, mobility/therapeutic exercise, distraction, breathing/relaxation and use of DME/assistive devices. Monitor lower extremities for skin lesions and educate on proper foot care Problem:Diabetic Foot Care Goal:Manage diabetic foot care Completed patient instructed on diabetic foot care including daily skin inspection, wearing proper footwear/avoiding going barefoot, wash/dry feet thoroughly, applying moisturizer, avoiding between toes and toenail care. Instruct on fire safety and safe and effective use of oxygen in the home Problem:Oxygen Goal:Manage oxygen Completed patient instructed on: findings of safety risk assessment, causes of fires, firerisks for neighboring residences and buildings, precautions that can prevent fire-related injuries, oxygen safety as outlined in Home Care Patient Handbook and recommendations for specific safety risks identified in the home: implementation of no-smoking policy in home, including e-cigarettes and posting of No-Smoking signs on entrance doors patient demonstrate compliance with safety recommendations. Define patient s appetite/hydration status and implement strategies to improve compliance with prescribed diet and/or healthy nutrition. Problem:Nutrition/Hyd ration Goal:Manage Nutrition/Hydration Completed reinforced patient on implementing strategies to comply with healthy nutrition and adequate hydration Opioids- educated on high risk medication Problem:High Risk Medications Goal:Patient/caregive r will teach back high risk medication side effect and precaution education Completed patient educated on taking medication(s) as prescribed by provider. Do not stop medication or alter doses without speaking with your provider. Discuss medication effectiveness or side effect concerns with your provider and home care team. Only take opioids as prescribed, do not share your medications, and take proper precautions in storing and properly disposing of opioids once no longer needed. Possible side effects of opioid medication including sedation, decreased rate of breathing, and constipation. Report over sedation to prescribing provider and practice deep breathing techniques every hour while awake. Prevent constipation by increasing water and fiber intake, increasing activity as tolerated, and use stool softener(s) as prescribed. Hypoglycemic (including insulin)- educated on high risk medication Problem:High Risk Medications Goal:Patient/caregive r will teach back high risk medication side effect and precaution education Completed patient educated on taking medication(s) as prescribed by provider. Do not stop medication or skip/alter doses without speaking with your provider. Discuss medication effectiveness or side effect concerns with your provider and home care team. Check blood sugars and keep log as ordered by provider. Monitor for side effects of hypoglycemia such as increased weakness or shaking, moist skin, sweating, fast heartbeat, dizziness, sudden hunger, confusion, pale skin, numbness in mouth or tongue, irritability, nervousness, unsteadiness, nightmares, bad dreams, and restless sleep. Checking your blood sugar routinely and eating a consistent diabetic diet can help regulate blood sugars and reduce side effects. Antiplatelet- educated on high risk medication Problem:High Risk Medications Goal:Patient/caregive r will teach back high risk medication side effect and precaution education Completed patient educated on taking medication(s) as prescribed by provider. Do not stop medication or alter doses without speaking with your provider. Discuss medication effectiveness or side effect concerns with your provider and home care team. Discuss all medications you are taking, even [id number]-[id number] medicines, with your provider and pharmacist since many drugs can interact with antiplatelet medications. If you forget to take a dose, DO NOT take a double dose. Take the missed dose as soon as possible on the same day. DO NOT take a double dose the next day to make up for the missed dose. Watch for signs of abnormal or excessive bleeding and bruising (refer to Bleeding Precautions education). Call your health care provider right away if you suspect something is wrong. Antibiotic- educated on high risk medication Problem:High Risk Medications Goal:Patient/caregive r will teach back high risk medication side effect and precaution education Completed patient educated on taking medication(s) as prescribed by provider. Do not stop medication or alter doses without speaking with your provider. Discuss medication effectiveness or side effect concerns with your provider and home care team. Take the full dispensed amount even if you start feeling better, as bacteria can become resistant to antibiotic treatment if you do not finish your prescription. Common side effects are upset stomach and diarrhea. Take your antibiotics with food unless otherwise indicated to help with indigestion. Taking an uwag-gae-xekkvla probiotic or eating yogurt with live and active cultures three times a day can help prevent antibiotic-associated diarrhea. Call your provider immediately if you develop rashes or hives as this could be a delayed allergic reaction. Seek emergency treatment if you develop severe allergic reaction symptoms such as mouth or tongue swelling. Instruct on ongoing discharge plan Problem:Discharge Goal:Manage discharge planning Completed Ongoing Discharge plan: Discharge plan discussed with patient including frequency and duration for home SN and plan for transition to: caregiver assistance. Determine patient's Advance Directive Status Description: Patient does not have advance directives. Patient/Caregiver declined Advance Directive information. Problem:Advance Directives Goal:Patient/caregive r will make healthcare providers aware of and any changes to Advance Directives throughout certification period Completed Discussed Advance Directives with Patient and/or Caregiver. Referred patient to Home Care handbook for further information on Healthcare DPOA & Living Will. Assess and instruct on measures to reduce edema Problem:SN Edema Goal:Patient will have improved edema management Completed patient instructed on elevation, compression, diet, medication compliance and benefits of activity. Wound Care: Perform wound care (1) Description: Wound Care Order: Wound location: perianal Wound type (etiology): abcess Order: Lightly pack perineal wound with Io doform, cover with gauze and ABD. Wash wound with soap and water or wound cleanser with each dressing change Frequency: daily Wound care to be completed by caregiver except for scheduled SN wound care visits. Measure wound/incision at least weekly. Okay to substitute comparable products from home care formulary. Problem:SN Integumentary/Wounds Goal:Patient/Caregive r will have improved healing and be free of signs and symptoms of complications Completed Completed by SN. Patient did tolerate well. Instruct patient/caregiver healing process and management measures to promote healing and avoid complications Problem:SN Integumentary/Wounds Goal:Patient/Caregive r will have improved healing and be free of signs and symptoms of complications Completed patient instructed on the following: healing process, signs and symptoms of infection, importance of good nutrition, importance of managing blood sugars, smoking cessation and when to report symptoms. Instruct Patient/Caregiver on wound/incision care procedure as ordered by physician Problem:SN Integumentary/Wounds Goal:Patient/Caregive r will have improved healing and be free of signs and symptoms of complications Completed patient instructed on wound care as ordered by Physician. Instruct on diabetes disease process and management of chronic condition Description: Patient has needs for education of diabetes. Problem:SN Diabetes Goal:Improved management of diabetes Completed patient assessed and reinforced on diabetes disease process, diet education, how to carb count and recogonizing s/s of hypoglycemia and hyperglycemia as found in the diabetes self-care booklets. Instruct on cardiovascular disease process and management of condition Description: Patient has following cardiac diagnosis(es): CAD. Problem:SN Cardiovascular Condition Goal:Improved management of cardiovascular disease Completed patient instructed on cardiac disease process, self monitoring & symptom reporting and Cardiac Diet. Instruct and educate on knowledge deficits Problem:SN Learning Assessment Goal:Demonstrate understanding of education Completed patient verbalize and/or demonstrate understanding of nursing education completed today. Education methods include: verbal cues and teach back. Further education required to improve knowledge and compliance with cardiac disease management, diabetic care management, fall prevention/home safety strategies and incision/wound care management. Maintenance COPD Description: Reinforce Acute and Sub-acute management education. Instruct on review zone sheet, nutrition in relation to COPD management, energy conservation, pacing activities, independence in ADLs vs what caregiver should be helping with, home exercise, additional COPD resources available like chronic care clinics as found in the COPD binder. Problem:SN COPD Goal:Improved management of COPD Completed Reinforced Acute and Sub-acute management education. patient reinforced on zone sheet, nutrition in relation to COPD management and energy conservation pacing activities and Romeo in ADLs vs what caregiver should be helping with as found in the COPD binder. Sub-acute COPD Description: Reinforce Acute COPD management education. Instruct on zone sheet, methods to reduce infection risks, anxiety management including relaxation techniques, importance of sleep, stress reduction, and coping strategies for living with COPD as found in the COPD binder. Problem:SN COPD Goal:Improved management of COPD Completed Reinforced Acute COPD management education. patient reinforced on zone sheet, methods to reduce infection risks, anxiety management including: relaxation techniques, importance of sleep and stress reduction and coping strategies for living with COPD as found in the COPD binder. Continued need for Home Care Services Description: POC and certification renewed due to continuing [facility] needs. Problem:Recertificati on Goal:Ongoing review of POC and need for skilled services Completed Wound Care: Perform wound care (2) Description: Wound Care Order: Wound location: left buttocks Wound type (etiology): abcess Order: cleanse with NS pat dry pack with idoforme packing. cover with dry dressing Frequency: 3xweek and PRN for soiled Wound care to be completed by patient except for scheduled SN wound care visits. Measure wound/incision at least weekly. Okay to substitute comparable products from home care formulary. Problem:SN Integumentary/Wounds Goal:Patient/Caregive r will have improved healing and be free of signs and symptoms of complications Completed Completed by SN. Patient did tolerate well. Wound Care: Perform wound care (4) Description: Wound Care Order: Wound location: right inner thigh Wound type (etiology): Boil Order: cleanse with mild soap and water rinse pat dry pack with idoform packing and cover with dry dressing Frequency: 3xweek Wound care to be completed by patient except for scheduled SN wound care visits. Measure wound/incision at least weekly. Okay to substitute comparable products from home care formulary. Problem:SN Integumentary/Wounds Goal:Patient/Caregive r will have improved healing and be free of signs and symptoms of complications Completed Completed by SN. Patient did tolerate well. documented in this encounter [facility]'s home Plan of care note* Visit Details Visit Type -SN ROUTINE Discipline -Half-Way Problems Problem Description Start Date Status Goals Interve ntions Medication Education Disciplines: Skilled Services 08/20/2022 Active 1 goal linked to scheduled/documen pawan intervention 1 goal intervention scheduled/document ed in this visit Sepsis Disciplines: Skilled Services 08/20/2022 Active 1 goal linked to scheduled/documen pawan intervention 1 goal intervention scheduled/document ed in this visit Physician Specific Parameters Disciplines: Skilled Services 08/20/2022 Active 1 goal linked to scheduled/documen pawan intervention 1 goal intervention scheduled/document ed in this visit Risk for Falls Disciplines: Skilled Services 08/20/2022 Active 1 goal linked to scheduled/documen pawan intervention 1 goal intervention scheduled/document ed in this visit Diabetic Foot Care Disciplines: Skilled Services 08/20/2022 Active 1 goal linked to scheduled/documen pawan intervention 1 goal intervention scheduled/document ed in this visit Oxygen Disciplines: Skilled Services 08/20/2022 Active 1 goal linked to scheduled/documen pawan intervention 1 goal intervention scheduled/document ed in this visit Nutrition/Hydration Disciplines: Skilled Services 08/20/2022 Active 1 goal linked to scheduled/documen pawan intervention 1 goal intervention scheduled/document ed in this visit High Risk Medications Disciplines: Skilled Services 08/20/2022 Active 1 goal linked to scheduled/documen pawan intervention 4 goal interventions scheduled/document ed in this visit Discharge Disciplines: Skilled Services 08/20/2022 Active 1 goal linked to scheduled/documen pawan intervention 1 goal intervention scheduled/document ed in this visit Advance Directives Disciplines: Skilled Services 08/20/2022 Active 1 goal linked to scheduled/documen pawan intervention 1 goal intervention scheduled/document ed in this visit SN Edema Disciplines: SN 08/20/2022 Active 1 goal linked to scheduled/documen pawan intervention 1 goal intervention scheduled/document ed in this visit SN Integumentary/Wound s Disciplines: SN 08/20/2022 Active 1 goal linked to scheduled/documen pawan intervention 2 goal interventions scheduled/document ed in this visit SN Diabetes Disciplines: SN 08/20/2022 Active 1 goal linked to scheduled/documen pawan intervention 1 goal intervention scheduled/document ed in this visit SN Cardiovascular Condition Disciplines: SN 08/20/2022 Active 1 goal linked to scheduled/documen pawan intervention 1 goal intervention scheduled/document ed in this visit SN Learning Assessment Disciplines: SN 08/20/2022 Active 1 goal linked to scheduled/documen pawan intervention 1 goal intervention scheduled/document ed in this visit SN COPD Disciplines: SN 09/22/2022 Active 1 goal linked to scheduled/documen pawan intervention 1 goal intervention scheduled/document ed in this visit Recertification Disciplines: Skilled Services 10/17/2022 Active 1 goal linked to scheduled/documen pawan intervention 1 goal intervention scheduled/document ed in this visit SN Integumentary/Wound s Disciplines: SN 11/09/2022 Active 1 goal linked to scheduled/documen pawan intervention 1 goal intervention scheduled/document ed in this visit SN Integumentary/Wound s Disciplines: SN 11/11/2022 Active 1 goal linked to scheduled/documen pawan intervention 1 goal intervention scheduled/document ed in this visit SN Integumentary/Wound s Disciplines: SN 11/27/2022 Active 1 goal linked to scheduled/documen pawan intervention 1 goal intervention scheduled/document ed in this visit Goals Goal Associated Problem Outcome Goal Met? Visit Notes Patient/caregiver will demonstrate ability to obtain, store, identify and administer ordered medications, keep accurate medication list in home, and adhere to medication schedule Description: Patient/caregiver will demonstrate ability to obtain, store, identify and administer ordered medications, keep accurate medication list in home, and adhere to medication schedule by 12/17/22. Medication Education No Patient/caregiver will be able to identify and report symptoms of sepsis Description: Patient/caregiver will be able to identify signs/symptoms of sepsis infection and will verbalize actions to take if suspected by 12/17/22. Sepsis No Patient to maintain parameters within physician-specified ranges throughout certification period Physician Specific Parameters No Manage Risk for falls Description: Patient/caregiver will verbalize knowledge of individualized fall prevention strategies by 12/17/22. Risk for Falls No Manage diabetic foot care Description: Patient/caregiver will demonstrate basic understanding of and compliance with diabetic self-care management as evidenced by verbalizing purpose of daily foot care and assessment by . Diabetic Foot Care No Manage oxygen Description: Patient/caregiver will use oxygen safely and effectively in home by verbalizing and demonstrating oxygen safety by 12/17/22. Oxygen No Manage Nutrition/Hydration Description: Patient/caregiver will verbalize/demonstrate knowledge of prescribed diet and/or healthy nutrition to be achieved by 12/17/22. Nutrition/Hydration No Patient/caregiver will teach back high risk medication side effect and precaution education High Risk Medications No Manage discharge planning Description: Patient/caregiver will verbalize understanding of ongoing discharge plan provided related to disease management, arrangements for outpatient and/or community services, obtaining medications, supplies, and DME, as needed throughout certification period. Discharge No Patient/caregiver will make healthcare providers aware of and any changes to Advance Directives throughout certification period Advance Directives No Patient will have improved edema management Description: Patient/caregiver will demonstrate an understanding of edema management strategies as evidenced by resolution or stabilization of edema by 12-17-22. SN Edema No Patient/Caregiver will have improved healing and be free of signs and symptoms of complications Description: Patient/caregiver will verbalize management strategies to promote wound healing & prevent complications as evidenced by improved healing & no complications by 12-17-22. SN Integumentary/Wounds No Improved management of diabetes Description: Improve diabetic management as evidenced by patient/caregiver able to teach back diabetic management strategies by 12/17/22. SN Diabetes No Improved management of cardiovascular disease Description: Improve patient/caregiver management of cardiac disease as evidenced by patient/caregiver ability to teach back cardiac management strategies by . SN Cardiovascular Condition No Demonstrate understanding of education Description: Patient and/or caregiver will verbalize understanding of educational instruction provided throughout certification period. SN Learning Assessment No Improved management of COPD Description: Improve COPD management as evidenced by decreased reports of dyspnea, medication compliance, and patient able to teach back strategies to manage condition. Goal to be achieved by 12-17-22 SN COPD No Ongoing review of POC and need for skilled services Recertification No Patient/Caregiver will have improved healing and be free of signs and symptoms of complications Description: Patient/caregiver will verbalize management strategies to promote wound healing & prevent complications as evidenced by improved healing & no complications by 11/30/22. SN Integumentary/Wounds No Patient/Caregiver will have improved healing and be free of signs and symptoms of complications Description: Patient/caregiver will verbalize management strategies to promote wound healing & prevent complications as evidenced by improved healing & no complications by 12-17-22. SN Integumentary/Wounds No Patient/Caregiver will have improved healing and be free of signs and symptoms of complications Description: Patient/caregiver will verbalize management strategies to promote wound healing & prevent complications as evidenced by improved healing & no complications by 12-17-22. SN Integumentary/Wounds No Interventions Intervention Associated Problem/Goal Status Variance Visit Notes Medication Education Description: Evaluate/instruct patient/caregiver on obtaining, storing, identifying and administering ordered medications as well as keeping accurate medication list in the home and adhereing to medication schedule Problem:Medication Education Goal:Patient/caregive r will demonstrate ability to obtain, store, identify and administer ordered medications, keep accurate medication list in home, and adhere to medication schedule Completed Patient instructed on importance of keeping accurate medication list in home. Risk of Sepsis Description: Patient is at risk for sepsis. Monitor closely for s/s of sepsis. Problem:Sepsis Goal:Patient/caregive r will be able to identify and report symptoms of sepsis Completed SPO2 Description: Notify if pulse ox is <92% at rest. Problem:Physician Specific Parameters Goal:Patient to maintain parameters within physician-specified ranges throughout certification period Completed Instruct on individual fall risk factors and strategies to prevent falls and injuries caused by falls. Problem:Risk for Falls Goal:Manage Risk for falls Completed SN: Patient instructed on Eliminating Environmental Hazards: Keep pathways clear, Keep pets out of pathways, Keep rooms and walkways well lit, Wear supportive shoes or non-skid socks and Keep frequently used items within reach Monitor lower extremities for skin lesions and educate on proper foot care Problem:Diabetic Foot Care Goal:Manage diabetic foot care Completed patient instructed on diabetic foot care including daily skin inspection, wearing proper footwear/avoiding going barefoot, wash/dry feet thoroughly, applying moisturizer, avoiding between toes and toenail care. Instruct on fire safety and safe and effective use of oxygen in the home Problem:Oxygen Goal:Manage oxygen Completed patient instructed on: findings of safety risk assessment, causes of fires, firerisks for neighboring residences and buildings, precautions that can prevent fire-related injuries, oxygen safety as outlined in Home Care Patient Handbook and recommendations for specific safety risks identified in the home: maintenance of working smoke detectors and changing batteries, establishment of fire escape plan, telephone accessibility and implementation of no-smoking policy in home, including e-cigarettes and posting of No-Smoking signs on entrance doors patient demonstrate compliance with safety recommendations. Define patient s appetite/hydration status and implement strategies to improve compliance with prescribed diet and/or healthy nutrition. Problem:Nutrition/Hyd ration Goal:Manage Nutrition/Hydration Completed reinforced patient on implementing strategies to comply with prescribed diet, healthy nutrition and adequate hydration Opioids- educated on high risk medication Problem:High Risk Medications Goal:Patient/caregive r will teach back high risk medication side effect and precaution education Completed patient educated on taking medication(s) as prescribed by provider. Do not stop medication or alter doses without speaking with your provider. Discuss medication effectiveness or side effect concerns with your provider and home care team. Only take opioids as prescribed, do not share your medications, and take proper precautions in storing and properly disposing of opioids once no longer needed. Possible side effects of opioid medication including sedation, decreased rate of breathing, and constipation. Report over sedation to prescribing provider and practice deep breathing techniques every hour while awake. Prevent constipation by increasing water and fiber intake, increasing activity as tolerated, and use stool softener(s) as prescribed. Hypoglycemic (including insulin)- educated on high risk medication Problem:High Risk Medications Goal:Patient/caregive r will teach back high risk medication side effect and precaution education Completed patient educated on taking medication(s) as prescribed by provider. Do not stop medication or skip/alter doses without speaking with your provider. Discuss medication effectiveness or side effect concerns with your provider and home care team. Check blood sugars and keep log as ordered by provider. Monitor for side effects of hypoglycemia such as increased weakness or shaking, moist skin, sweating, fast heartbeat, dizziness, sudden hunger, confusion, pale skin, numbness in mouth or tongue, irritability, nervousness, unsteadiness, nightmares, bad dreams, and restless sleep. Checking your blood sugar routinely and eating a consistent diabetic diet can help regulate blood sugars and reduce side effects. Antiplatelet- educated on high risk medication Problem:High Risk Medications Goal:Patient/caregive r will teach back high risk medication side effect and precaution education Completed patient educated on taking medication(s) as prescribed by provider. Do not stop medication or alter doses without speaking with your provider. Discuss medication effectiveness or side effect concerns with your provider and home care team. Discuss all medications you are taking, even [id number] medicines, with your provider and pharmacist since many drugs can interact with antiplatelet medications. If you forget to take a dose, DO NOT take a double dose. Take the missed dose as soon as possible on the same day. DO NOT take a double dose the next day to make up for the missed dose. Watch for signs of abnormal or excessive bleeding and bruising (refer to Bleeding Precautions education). Call your health care provider right away if you suspect something is wrong. Antibiotic- educated on high risk medication Problem:High Risk Medications Goal:Patient/caregive r will teach back high risk medication side effect and precaution education Completed patient educated on taking medication(s) as prescribed by provider. Do not stop medication or alter doses without speaking with your provider. Discuss medication effectiveness or side effect concerns with your provider and home care team. Take the full dispensed amount even if you start feeling better, as bacteria can become resistant to antibiotic treatment if you do not finish your prescription. Common side effects are upset stomach and diarrhea. Take your antibiotics with food unless otherwise indicated to help with indigestion. Taking an imfl-fel-jaiirnj probiotic or eating yogurt with live and active cultures three times a day can help prevent antibiotic-associated diarrhea. Call your provider immediately if you develop rashes or hives as this could be a delayed allergic reaction. Seek emergency treatment if you develop severe allergic reaction symptoms such as mouth or tongue swelling. Instruct on ongoing discharge plan Problem:Discharge Goal:Manage discharge planning Completed Ongoing Discharge plan: Discharge plan discussed with patient including frequency and duration for home SN and plan for transition to: caregiver assistance. Determine patient's Advance Directive Status Description: Patient does not have advance directives. Patient/Caregiver declined Advance Directive information. Problem:Advance Directives Goal:Patient/caregive r will make healthcare providers aware of and any changes to Advance Directives throughout certification period Completed Discussed Advance Directives with Patient and/or Caregiver. Referred patient to Home Care handbook for further information on Healthcare DPOA & Living Will. Assess and instruct on measures to reduce edema Problem:SN Edema Goal:Patient will have improved edema management Completed patient instructed on elevation, compression, diet, medication compliance and benefits of activity. Wound Care: Perform wound care (1) Description: Wound Care Order: Wound location: perianal Wound type (etiology): abcess Order: Lightly pack perineal wound with Io doform, cover with gauze and ABD. Wash wound with soap and water or wound cleanser with each dressing change Frequency: daily Wound care to be completed by caregiver except for scheduled SN wound care visits. Measure wound/incision at least weekly. Okay to substitute comparable products from home care formulary. Problem:SN Integumentary/Wounds Goal:Patient/Caregive r will have improved healing and be free of signs and symptoms of complications Completed Completed by SN. Patient did tolerate well. Instruct patient/caregiver healing process and management measures to promote healing and avoid complications Problem:SN Integumentary/Wounds Goal:Patient/Caregive r will have improved healing and be free of signs and symptoms of complications Completed patient instructed on the following: healing process, signs and symptoms of infection, importance of good nutrition, importance of managing blood sugars, smoking cessation and when to report symptoms. Instruct on diabetes disease process and management of chronic condition Description: Patient has needs for education of diabetes. Problem:SN Diabetes Goal:Improved management of diabetes Completed patient assessed and reinforced on diabetes disease process, diet education, how to carb count, recogonizing s/s of hypoglycemia and hyperglycemia and managing sick days as found in the diabetes self-care booklets. Instruct on cardiovascular disease process and management of condition Description: Patient has following cardiac diagnosis(es): CAD. Problem:SN Cardiovascular Condition Goal:Improved management of cardiovascular disease Completed patient instructed on cardiac disease process, self monitoring & symptom reporting and Cardiac Diet. Instruct and educate on knowledge deficits Problem:SN Learning Assessment Goal:Demonstrate understanding of education Completed patient verbalize and/or demonstrate understanding of nursing education completed today. Education methods include: verbal cues and teach back. Further education required to improve knowledge and compliance with cardiac disease management, diabetic care management, fall prevention/home safety strategies and incision/wound care management. Maintenance COPD Description: Reinforce Acute and Sub-acute management education. Instruct on review zone sheet, nutrition in relation to COPD management, energy conservation, pacing activities, independence in ADLs vs what caregiver should be helping with, home exercise, additional COPD resources available like chronic care clinics as found in the COPD binder. Problem:SN COPD Goal:Improved management of COPD Completed Reinforced Acute and Sub-acute management education. patient reinforced on zone sheet, nutrition in relation to COPD management and energy conservation pacing activities and Romeo in ADLs vs what caregiver should be helping with as found in the COPD binder. Continued need for Home Care Services Description: POC and certification renewed due to continuing [facility] needs. Problem:Recertificati on Goal:Ongoing review of POC and need for skilled services Completed Instruct Patient/Caregiver on wound/incision care procedure as ordered by physician Description: L gluteal abscess care daily and as needed: Cleanse area in shower or with soap/water, cover with clean dry dressing and change each day and as needed for drainage. Continue this until no drainage present on dressing. Problem:SN Integumentary/Wounds Goal:Patient/Caregive r will have improved healing and be free of signs and symptoms of complications Completed patient instructed on and return demonstrated wound care as ordered by Physician. Wound Care: Perform wound care (2) Description: Wound Care Order: Wound location: left buttocks Wound type (etiology): abcess Order: cleanse with NS pat dry pack with idoforme packing. cover with dry dressing Frequency: 3xweek and PRN for soiled Wound care to be completed by patient except for scheduled SN wound care visits. Measure wound/incision at least weekly. Okay to substitute comparable products from home care formulary. Problem:SN Integumentary/Wounds Goal:Patient/Caregive r will have improved healing and be free of signs and symptoms of complications Completed Completed by SN. Patient did tolerate well. Wound Care: Perform wound care (4) Description: Wound Care Order: Wound location: right inner thigh Wound type (etiology): Boil Order: cleanse with mild soap and water rinse pat dry pack with idoform packing and cover with dry dressing Frequency: 3xweek Wound care to be completed by patient except for scheduled SN wound care visits. Measure wound/incision at least weekly. Okay to substitute comparable products from home care formulary. Problem:SN Integumentary/Wounds Goal:Patient/Caregive r will have improved healing and be free of signs and symptoms of complications Completed Completed by SN. Patient did tolerate well. documented in this encounter [facility]'s home Plan of care note* Visit Details Visit Type -SN ROUTINE Discipline -Half-Way Problems Problem Description Start Date Status Goals Interve ntions Medication Education Disciplines: Skilled Services 08/20/2022 Active 1 goal linked to scheduled/document ed intervention 1 goal intervention scheduled/documente d in this visit Sepsis Disciplines: Skilled Services 08/20/2022 Active 1 goal linked to scheduled/document ed intervention 1 goal intervention scheduled/documente d in this visit Physician Specific Parameters Disciplines: Skilled Services 08/20/2022 Active 1 goal linked to scheduled/document ed intervention 1 goal intervention scheduled/documente d in this visit Risk for Falls Disciplines: Skilled Services 08/20/2022 Active 1 goal linked to scheduled/document ed intervention 1 goal intervention scheduled/documente d in this visit Diabetic Foot Care Disciplines: Skilled Services 08/20/2022 Active 1 goal linked to scheduled/document ed intervention 1 goal intervention scheduled/documente d in this visit Nutrition/Hydra tion Disciplines: Skilled Services 08/20/2022 Active 1 goal linked to scheduled/document ed intervention 1 goal intervention scheduled/documente d in this visit High Risk Medications Disciplines: Skilled Services 08/20/2022 Active 1 goal linked to scheduled/document ed intervention 4 goal interventions scheduled/documente d in this visit Discharge Disciplines: Skilled Services 08/20/2022 Active 1 goal linked to scheduled/document ed intervention 1 goal intervention scheduled/documente d in this visit Advance Directives Disciplines: Skilled Services 08/20/2022 Active 1 goal linked to scheduled/document ed intervention 1 goal intervention scheduled/documente d in this visit SN Integumentary/W ounds Disciplines: SN 08/20/2022 Active 1 goal linked to scheduled/document ed intervention 3 goal interventions scheduled/documente d in this visit SN Learning Assessment Disciplines: SN 08/20/2022 Active 1 goal linked to scheduled/document ed intervention 1 goal intervention scheduled/documente d in this visit SN COPD Disciplines: SN 09/22/2022 Active 1 goal linked to scheduled/document ed intervention 1 goal intervention scheduled/documente d in this visit Recertification Disciplines: Skilled Services 10/17/2022 Active 1 goal linked to scheduled/document ed intervention 1 goal intervention scheduled/documente d in this visit SN Integumentary/W ounds Disciplines: SN 11/11/2022 Active 1 goal linked to scheduled/document ed intervention 1 goal intervention scheduled/documente d in this visit SN Integumentary/W ounds Disciplines: SN 11/27/2022 Active 1 goal linked to scheduled/document ed intervention 1 goal intervention scheduled/documente d in this visit Goals Goal Associated Problem Outcome Goal Met? Visit Notes Patient/caregiver will demonstrate ability to obtain, store, identify and administer ordered medications, keep accurate medication list in home, and adhere to medication schedule Description: Patient/caregiver will demonstrate ability to obtain, store, identify and administer ordered medications, keep accurate medication list in home, and adhere to medication schedule by 12/17/22. Medication Education No Patient/caregiver will be able to identify and report symptoms of sepsis Description: Patient/caregiver will be able to identify signs/symptoms of sepsis infection and will verbalize actions to take if suspected by 12/17/22. Sepsis No Patient to maintain parameters within physician-specified ranges throughout certification period Physician Specific Parameters No Manage Risk for falls Description: Patient/caregiver will verbalize knowledge of individualized fall prevention strategies by 12/17/22. Risk for Falls No Manage diabetic foot care Description: Patient/caregiver will demonstrate basic understanding of and compliance with diabetic self-care management as evidenced by verbalizing purpose of daily foot care and assessment by . Diabetic Foot Care No Manage Nutrition/Hydration Description: Patient/caregiver will verbalize/demonstrate knowledge of prescribed diet and/or healthy nutrition to be achieved by 12/17/22. Nutrition/Hydration No Patient/caregiver will teach back high risk medication side effect and precaution education High Risk Medications No Manage discharge planning Description: Patient/caregiver will verbalize understanding of ongoing discharge plan provided related to disease management, arrangements for outpatient and/or community services, obtaining medications, supplies, and DME, as needed throughout certification period. Discharge No Patient/caregiver will make healthcare providers aware of and any changes to Advance Directives throughout certification period Advance Directives No Patient/Caregiver will have improved healing and be free of signs and symptoms of complications Description: Patient/caregiver will verbalize management strategies to promote wound healing & prevent complications as evidenced by improved healing & no complications by 12-17-22. SN Integumentary/Wounds No Demonstrate understanding of education Description: Patient and/or caregiver will verbalize understanding of educational instruction provided throughout certification period. SN Learning Assessment No Improved management of COPD Description: Improve COPD management as evidenced by decreased reports of dyspnea, medication compliance, and patient able to teach back strategies to manage condition. Goal to be achieved by 12-17-22 SN COPD No Ongoing review of POC and need for skilled services Recertification No Patient/Caregiver will have improved healing and be free of signs and symptoms of complications Description: Patient/caregiver will verbalize management strategies to promote wound healing & prevent complications as evidenced by improved healing & no complications by 12-17-22. SN Integumentary/Wounds No Patient/Caregiver will have improved healing and be free of signs and symptoms of complications Description: Patient/caregiver will verbalize management strategies to promote wound healing & prevent complications as evidenced by improved healing & no complications by 12-17-22. SN Integumentary/Wounds No Interventions Intervention Associated Problem/Goal Status Variance Visit Notes Medication Education Description: Evaluate/instruct patient/caregiver on obtaining, storing, identifying and administering ordered medications as well as keeping accurate medication list in the home and adhereing to medication schedule Problem:Medication Education Goal:Patient/caregiv er will demonstrate ability to obtain, store, identify and administer ordered medications, keep accurate medication list in home, and adhere to medication schedule Completed Patient instructed on importance of keeping accurate medication list in home, adhering to medication schedule and proper storage of medications. Risk of Sepsis Description: Patient is at risk for sepsis. Monitor closely for s/s of sepsis. Problem:Sepsis Goal:Patient/caregiv er will be able to identify and report symptoms of sepsis Completed SPO2 Description: Notify if pulse ox is <92% at rest. Problem:Physician Specific Parameters Goal:Patient to maintain parameters within physician-specified ranges throughout certification period Completed Instruct on individual fall risk factors and strategies to prevent falls and injuries caused by falls. Problem:Risk for Falls Goal:Manage Risk for falls Completed SN: Patient instructed on Eliminating Environmental Hazards: Keep pathways clear, Keep pets out of pathways, Keep rooms and walkways well lit, Wear supportive shoes or non-skid socks and Keep frequently used items within reach Monitor lower extremities for skin lesions and educate on proper foot care Problem:Diabetic Foot Care Goal:Manage diabetic foot care Completed patient instructed on diabetic foot care including daily skin inspection, wearing proper footwear/avoiding going barefoot, wash/dry feet thoroughly, applying moisturizer, avoiding between toes and toenail care. Define patient s appetite/hydration status and implement strategies to improve compliance with prescribed diet and/or healthy nutrition. Problem:Nutrition/Hy dration Goal:Manage Nutrition/Hydration Completed reinforced patient and caregiver on implementing strategies to comply with prescribed diet, healthy nutrition and adequate hydration Opioids- educated on high risk medication Problem:High Risk Medications Goal:Patient/caregiv er will teach back high risk medication side effect and precaution education Completed patient educated on taking medication(s) as prescribed by provider. Do not stop medication or alter doses without speaking with your provider. Discuss medication effectiveness or side effect concerns with your provider and home care team. Only take opioids as prescribed, do not share your medications, and take proper precautions in storing and properly disposing of opioids once no longer needed. Possible side effects of opioid medication including sedation, decreased rate of breathing, and constipation. Report over sedation to prescribing provider and practice deep breathing techniques every hour while awake. Prevent constipation by increasing water and fiber intake, increasing activity as tolerated, and use stool softener(s) as prescribed. Hypoglycemic (including insulin)- educated on high risk medication Problem:High Risk Medications Goal:Patient/caregiv er will teach back high risk medication side effect and precaution education Completed patient educated on taking medication(s) as prescribed by provider. Do not stop medication or skip/alter doses without speaking with your provider. Discuss medication effectiveness or side effect concerns with your provider and home care team. Check blood sugars and keep log as ordered by provider. Monitor for side effects of hypoglycemia such as increased weakness or shaking, moist skin, sweating, fast heartbeat, dizziness, sudden hunger, confusion, pale skin, numbness in mouth or tongue, irritability, nervousness, unsteadiness, nightmares, bad dreams, and restless sleep. Checking your blood sugar routinely and eating a consistent diabetic diet can help regulate blood sugars and reduce side effects. Antiplatelet- educated on high risk medication Problem:High Risk Medications Goal:Patient/caregiv er will teach back high risk medication side effect and precaution education Completed patient educated on taking medication(s) as prescribed by provider. Do not stop medication or alter doses without speaking with your provider. Discuss medication effectiveness or side effect concerns with your provider and home care team. Discuss all medications you are taking, even skgx-ath-ghyhmcg medicines, with your provider and pharmacist since many drugs can interact with antiplatelet medications. If you forget to take a dose, DO NOT take a double dose. Take the missed dose as soon as possible on the same day. DO NOT take a double dose the next day to make up for the missed dose. Watch for signs of abnormal or excessive bleeding and bruising (refer to Bleeding Precautions education). Call your health care provider right away if you suspect something is wrong. Antibiotic- educated on high risk medication Problem:High Risk Medications Goal:Patient/caregiv er will teach back high risk medication side effect and precaution education Completed patient educated on taking medication(s) as prescribed by provider. Do not stop medication or alter doses without speaking with your provider. Discuss medication effectiveness or side effect concerns with your provider and home care team. Take the full dispensed amount even if you start feeling better, as bacteria can become resistant to antibiotic treatment if you do not finish your prescription. Common side effects are upset stomach and diarrhea. Take your antibiotics with food unless otherwise indicated to help with indigestion. Taking an rssf-ajm-rogsard probiotic or eating yogurt with live and active cultures three times a day can help prevent antibiotic-associated diarrhea. Call your provider immediately if you develop rashes or hives as this could be a delayed allergic reaction. Seek emergency treatment if you develop severe allergic reaction symptoms such as mouth or tongue swelling. Instruct on ongoing discharge plan Problem:Discharge Goal:Manage discharge planning Completed Ongoing Discharge plan: Discharge plan discussed with patient and caregiver including frequency and duration for home SN and plan for transition to: caregiver assistance. Determine patient's Advance Directive Status Description: Patient does not have advance directives. Patient/Caregiver declined Advance Directive information. Problem:Advance Directives Goal:Patient/caregiv er will make healthcare providers aware of and any changes to Advance Directives throughout certification period Completed Discussed Advance Directives with Patient and/or Caregiver. Referred patient to Home Care handbook for further information on Healthcare DPOA & Living Will. Wound Care: Perform wound care (1) Description: Wound Care Order: Wound location: perianal Wound type (etiology): abcess Order: Lightly pack perineal wound with Io doform, cover with gauze and ABD. Wash wound with soap and water or wound cleanser with each dressing change Frequency: daily Wound care to be completed by caregiver except for scheduled SN wound care visits. Measure wound/incision at least weekly. Okay to substitute comparable products from home care formulary. Problem:SN Integumentary/Wounds Goal:Patient/Caregiv er will have improved healing and be free of signs and symptoms of complications Completed Completed by SN. Patient did tolerate well. Instruct patient/caregiver healing process and management measures to promote healing and avoid complications Problem:SN Integumentary/Wounds Goal:Patient/Caregiv er will have improved healing and be free of signs and symptoms of complications Completed patient instructed on the following: healing process, signs and symptoms of infection, importance of good nutrition, importance of managing blood sugars, smoking cessation and when to report symptoms. Instruct Patient/Caregiver on wound/incision care procedure as ordered by physician Problem:SN Integumentary/Wounds Goal:Patient/Caregiv er will have improved healing and be free of signs and symptoms of complications Completed patient instructed on and return demonstrated wound care as ordered by Physician. Instruct and educate on knowledge deficits Problem:SN Learning Assessment Goal:Demonstrate understanding of education Completed patient verbalize and/or demonstrate understanding of nursing education completed today. Education methods include: verbal cues. Further education required to improve knowledge and compliance with cardiac disease management, diabetic care management, fall prevention/home safety strategies, gastrointestinal care management and incision/wound care management. Maintenance COPD Description: Reinforce Acute and Sub-acute management education. Instruct on review zone sheet, nutrition in relation to COPD management, energy conservation, pacing activities, independence in ADLs vs what caregiver should be helping with, home exercise, additional COPD resources available like chronic care clinics as found in the COPD binder. Problem:SN COPD Goal:Improved management of COPD Completed Reinforced Acute and Sub-acute management education. patient reinforced on zone sheet and nutrition in relation to COPD management as found in the COPD binder. Continued need for Home Care Services Description: POC and certification renewed due to continuing [facility] needs. Problem:Recertificat ion Goal:Ongoing review of POC and need for skilled services Completed Wound Care: Perform wound care (2) Description: Wound Care Order: Wound location: left buttocks Wound type (etiology): abcess Order: cleanse with NS pat dry pack with idoforme packing. cover with dry dressing Frequency: 3xweek and PRN for soiled Wound care to be completed by patient except for scheduled SN wound care visits. Measure wound/incision at least weekly. Okay to substitute comparable products from home care formulary. Problem:SN Integumentary/Wounds Goal:Patient/Caregiv er will have improved healing and be free of signs and symptoms of complications Completed Completed by SN. Patient did tolerate well. Wound Care: Perform wound care (4) Description: Wound Care Order: Wound location: right inner thigh Wound type (etiology): Boil Order: cleanse with mild soap and water rinse pat dry pack with idoform packing and cover with dry dressing Frequency: 3xweek Wound care to be completed by patient except for scheduled SN wound care visits. Measure wound/incision at least weekly. Okay to substitute comparable products from home care formulary. Problem:SN Integumentary/Wounds Goal:Patient/Caregiv er will have improved healing and be free of signs and symptoms of complications Completed Completed by SN completed independently . Patient did tolerate well. documented in this encounter [facility]'s home Plan of care note* Visit Details Visit Type -SN ROUTINE Discipline -Half-Way Problems Problem Description Start Date Status Goals Interve ntions Medication Education Disciplines: Skilled Services 08/20/2022 Active 1 goal linked to scheduled/documen pawan intervention 1 goal intervention scheduled/document ed in this visit Sepsis Disciplines: Skilled Services 08/20/2022 Active 1 goal linked to scheduled/documen pawan intervention 1 goal intervention scheduled/document ed in this visit Physician Specific Parameters Disciplines: Skilled Services 08/20/2022 Active 1 goal linked to scheduled/documen pawan intervention 1 goal intervention scheduled/document ed in this visit Risk for Falls Disciplines: Skilled Services 08/20/2022 Active 1 goal linked to scheduled/documen pawan intervention 1 goal intervention scheduled/document ed in this visit Pain Disciplines: Skilled Services 08/20/2022 Active 1 goal linked to scheduled/documen pawan intervention 1 goal intervention scheduled/document ed in this visit Diabetic Foot Care Disciplines: Skilled Services 08/20/2022 Active 1 goal linked to scheduled/documen pawan intervention 1 goal intervention scheduled/document ed in this visit Oxygen Disciplines: Skilled Services 08/20/2022 Active 1 goal linked to scheduled/documen pawan intervention 1 goal intervention scheduled/document ed in this visit Nutrition/Hydration Disciplines: Skilled Services 08/20/2022 Active 1 goal linked to scheduled/documen pawan intervention 1 goal intervention scheduled/document ed in this visit High Risk Medications Disciplines: Skilled Services 08/20/2022 Active 1 goal linked to scheduled/documen pawan intervention 4 goal interventions scheduled/document ed in this visit Discharge Disciplines: Skilled Services 08/20/2022 Active 1 goal linked to scheduled/documen pawan intervention 1 goal intervention scheduled/document ed in this visit Advance Directives Disciplines: Skilled Services 08/20/2022 Active 1 goal linked to scheduled/documen pawan intervention 1 goal intervention scheduled/document ed in this visit SN Edema Disciplines: SN 08/20/2022 Active 1 goal linked to scheduled/documen pawan intervention 1 goal intervention scheduled/document ed in this visit SN Integumentary/Wound s Disciplines: SN 08/20/2022 Active 1 goal linked to scheduled/documen pawan intervention 2 goal interventions scheduled/document ed in this visit SN Diabetes Disciplines: SN 08/20/2022 Active 1 goal linked to scheduled/documen pawan intervention 1 goal intervention scheduled/document ed in this visit SN Cardiovascular Condition Disciplines: 08/20/2022 Active 1 goal linked to scheduled/documen pawan intervention 1 goal intervention scheduled/document ed in this visit SN COPD Disciplines: 09/22/2022 Active 1 goal linked to scheduled/documen pawan intervention 3 goal interventions scheduled/document ed in this visit Recertification Disciplines: Skilled Services 10/17/2022 Active 1 goal linked to scheduled/documen pawan intervention 1 goal intervention scheduled/document ed in this visit SN Integumentary/Wound s Disciplines: 11/09/2022 Active 1 goal linked to scheduled/documen pawan intervention 1 goal intervention scheduled/document ed in this visit SN Integumentary/Wound s Disciplines: SN 11/11/2022 Active 1 goal linked to scheduled/documen pawan intervention 1 goal intervention scheduled/document ed in this visit SN Integumentary/Wound s Disciplines: 11/27/2022 Active 1 goal linked to scheduled/documen pawan intervention 1 goal intervention scheduled/document ed in this visit Goals Goal Associated Problem Outcome Goal Met? Visit Notes Patient/caregiver will demonstrate ability to obtain, store, identify and administer ordered medications, keep accurate medication list in home, and adhere to medication schedule Description: Patient/caregiver will demonstrate ability to obtain, store, identify and administer ordered medications, keep accurate medication list in home, and adhere to medication schedule by 12/17/22. Medication Education No Patient/caregiver will be able to identify and report symptoms of sepsis Description: Patient/caregiver will be able to identify signs/symptoms of sepsis infection and will verbalize actions to take if suspected by 12/17/22. Sepsis No Patient to maintain parameters within physician-specified ranges throughout certification period Physician Specific Parameters No Manage Risk for falls Description: Patient/caregiver will verbalize knowledge of individualized fall prevention strategies by 12/17/22. Risk for Falls No Manage Pain Description: Patient/caregiver will verbalize knowledge and understanding of appropriate techniques to control pain, including pain medication and non-pharmacological techniques. Patient will verbalize or demonstrate an acceptable level of pain as evidenced by a pain score of 0-3/10 and improvement in ability to perform activities of daily living to be achieved by 12/17/22. Pain No Manage diabetic foot care Description: Patient/caregiver will demonstrate basic understanding of and compliance with diabetic self-care management as evidenced by verbalizing purpose of daily foot care and assessment by . Diabetic Foot Care No Manage oxygen Description: Patient/caregiver will use oxygen safely and effectively in home by verbalizing and demonstrating oxygen safety by 12/17/22. Oxygen No Manage Nutrition/Hydration Description: Patient/caregiver will verbalize/demonstrate knowledge of prescribed diet and/or healthy nutrition to be achieved by 12/17/22. Nutrition/Hydration No Patient/caregiver will teach back high risk medication side effect and precaution education High Risk Medications No Manage discharge planning Description: Patient/caregiver will verbalize understanding of ongoing discharge plan provided related to disease management, arrangements for outpatient and/or community services, obtaining medications, supplies, and DME, as needed throughout certification period. Discharge No Patient/caregiver will make healthcare providers aware of and any changes to Advance Directives throughout certification period Advance Directives No Patient will have improved edema management Description: Patient/caregiver will demonstrate an understanding of edema management strategies as evidenced by resolution or stabilization of edema by 12-17-22. SN Edema No Patient/Caregiver will have improved healing and be free of signs and symptoms of complications Description: Patient/caregiver will verbalize management strategies to promote wound healing & prevent complications as evidenced by improved healing & no complications by 12-17-22. SN Integumentary/Wounds No Improved management of diabetes Description: Improve diabetic management as evidenced by patient/caregiver able to teach back diabetic management strategies by 12/17/22. SN Diabetes No Improved management of cardiovascular disease Description: Improve patient/caregiver management of cardiac disease as evidenced by patient/caregiver ability to teach back cardiac management strategies by . SN Cardiovascular Condition No Improved management of COPD Description: Improve COPD management as evidenced by decreased reports of dyspnea, medication compliance, and patient able to teach back strategies to manage condition. Goal to be achieved by 12-17-22 SN COPD No Ongoing review of POC and need for skilled services Recertification No Patient/Caregiver will have improved healing and be free of signs and symptoms of complications Description: Patient/caregiver will verbalize management strategies to promote wound healing & prevent complications as evidenced by improved healing & no complications by 11/30/22. SN Integumentary/Wounds No Patient/Caregiver will have improved healing and be free of signs and symptoms of complications Description: Patient/caregiver will verbalize management strategies to promote wound healing & prevent complications as evidenced by improved healing & no complications by 12-17-22. SN Integumentary/Wounds No Patient/Caregiver will have improved healing and be free of signs and symptoms of complications Description: Patient/caregiver will verbalize management strategies to promote wound healing & prevent complications as evidenced by improved healing & no complications by 12-17-22. SN Integumentary/Wounds No Interventions Intervention Associated Problem/Goal Status Variance Visit Notes Medication Education Description: Evaluate/instruct patient/caregiver on obtaining, storing, identifying and administering ordered medications as well as keeping accurate medication list in the home and adhereing to medication schedule Problem:Medication Education Goal:Patient/caregive r will demonstrate ability to obtain, store, identify and administer ordered medications, keep accurate medication list in home, and adhere to medication schedule Completed Patient instructed on importance of keeping accurate medication list in home. Risk of Sepsis Description: Patient is at risk for sepsis. Monitor closely for s/s of sepsis. Problem:Sepsis Goal:Patient/caregive r will be able to identify and report symptoms of sepsis Completed SPO2 Description: Notify if pulse ox is <92% at rest. Problem:Physician Specific Parameters Goal:Patient to maintain parameters within physician-specified ranges throughout certification period Completed Instruct on individual fall risk factors and strategies to prevent falls and injuries caused by falls. Problem:Risk for Falls Goal:Manage Risk for falls Completed SN: Patient and Caregiver instructed on Eliminating Environmental Hazards: Keep pathways clear, Keep pets out of pathways, Keep rooms and walkways well lit, Wear supportive shoes or non-skid socks and Keep frequently used items within reach Instruct on pain and instruct on strategies to control pain Problem:Pain Goal:Manage Pain Completed patient and caregiver instructed on techniques to control pain including Pharmacological measures and Non-Pharmacological measures; rest, positioning/elevation, mobility/therapeutic exercise, distraction, breathing/relaxation and use of DME/assistive devices. Monitor lower extremities for skin lesions and educate on proper foot care Problem:Diabetic Foot Care Goal:Manage diabetic foot care Completed patient instructed on diabetic foot care including daily skin inspection, wearing proper footwear/avoiding going barefoot, wash/dry feet thoroughly, applying moisturizer, avoiding between toes and toenail care. Instruct on fire safety and safe and effective use of oxygen in the home Problem:Oxygen Goal:Manage oxygen Completed patient instructed on: findings of safety risk assessment, causes of fires, firerisks for neighboring residences and buildings, precautions that can prevent fire-related injuries, oxygen safety as outlined in Home Care Patient Handbook and recommendations for specific safety risks identified in the home: implementation of no-smoking policy in home, including e-cigarettes and posting of No-Smoking signs on entrance doors patient and caregiver demonstrate compliance with safety recommendations. Define patient s appetite/hydration status and implement strategies to improve compliance with prescribed diet and/or healthy nutrition. Problem:Nutrition/Hyd ration Goal:Manage Nutrition/Hydration Completed reinforced patient on implementing strategies to comply with healthy nutrition and adequate hydration Opioids- educated on high risk medication Problem:High Risk Medications Goal:Patient/caregive r will teach back high risk medication side effect and precaution education Completed patient educated on taking medication(s) as prescribed by provider. Do not stop medication or alter doses without speaking with your provider. Discuss medication effectiveness or side effect concerns with your provider and home care team. Only take opioids as prescribed, do not share your medications, and take proper precautions in storing and properly disposing of opioids once no longer needed. Possible side effects of opioid medication including sedation, decreased rate of breathing, and constipation. Report over sedation to prescribing provider and practice deep breathing techniques every hour while awake. Prevent constipation by increasing water and fiber intake, increasing activity as tolerated, and use stool softener(s) as prescribed. Hypoglycemic (including insulin)- educated on high risk medication Problem:High Risk Medications Goal:Patient/caregive r will teach back high risk medication side effect and precaution education Completed patient educated on taking medication(s) as prescribed by provider. Do not stop medication or skip/alter doses without speaking with your provider. Discuss medication effectiveness or side effect concerns with your provider and home care team. Check blood sugars and keep log as ordered by provider. Monitor for side effects of hypoglycemia such as increased weakness or shaking, moist skin, sweating, fast heartbeat, dizziness, sudden hunger, confusion, pale skin, numbness in mouth or tongue, irritability, nervousness, unsteadiness, nightmares, bad dreams, and restless sleep. Checking your blood sugar routinely and eating a consistent diabetic diet can help regulate blood sugars and reduce side effects. Antiplatelet- educated on high risk medication Problem:High Risk Medications Goal:Patient/caregive r will teach back high risk medication side effect and precaution education Completed patient educated on taking medication(s) as prescribed by provider. Do not stop medication or alter doses without speaking with your provider. Discuss medication effectiveness or side effect concerns with your provider and home care team. Discuss all medications you are taking, even hhts-naw-fbtwxfk medicines, with your provider and pharmacist since many drugs can interact with antiplatelet medications. If you forget to take a dose, DO NOT take a double dose. Take the missed dose as soon as possible on the same day. DO NOT take a double dose the next day to make up for the missed dose. Watch for signs of abnormal or excessive bleeding and bruising (refer to Bleeding Precautions education). Call your health care provider right away if you suspect something is wrong. Antibiotic- educated on high risk medication Problem:High Risk Medications Goal:Patient/caregive r will teach back high risk medication side effect and precaution education Completed patient educated on taking medication(s) as prescribed by provider. Do not stop medication or alter doses without speaking with your provider. Discuss medication effectiveness or side effect concerns with your provider and home care team. Take the full dispensed amount even if you start feeling better, as bacteria can become resistant to antibiotic treatment if you do not finish your prescription. Common side effects are upset stomach and diarrhea. Take your antibiotics with food unless otherwise indicated to help with indigestion. Taking an ggrk-giw-ibzpgxc probiotic or eating yogurt with live and active cultures three times a day can help prevent antibiotic-associated diarrhea. Call your provider immediately if you develop rashes or hives as this could be a delayed allergic reaction. Seek emergency treatment if you develop severe allergic reaction symptoms such as mouth or tongue swelling. Instruct on ongoing discharge plan Problem:Discharge Goal:Manage discharge planning Completed Ongoing Discharge plan: Discharge plan discussed with patient including frequency and duration for home SN and plan for transition to: caregiver assistance. Determine patient's Advance Directive Status Description: Patient does not have advance directives. Patient/Caregiver declined Advance Directive information. Problem:Advance Directives Goal:Patient/caregive r will make healthcare providers aware of and any changes to Advance Directives throughout certification period Completed Discussed Advance Directives with Patient and/or Caregiver. Referred patient to Home Care handbook for further information on Healthcare DPOA & Living Will. Assess and instruct on measures to reduce edema Problem:SN Edema Goal:Patient will have improved edema management Completed patient instructed on elevation, compression and diet. Wound Care: Perform wound care (1) Description: Wound Care Order: Wound location: perianal Wound type (etiology): abcess Order: Lightly pack perineal wound with Io doform, cover with gauze and ABD. Wash wound with soap and water or wound cleanser with each dressing change Frequency: daily Wound care to be completed by caregiver except for scheduled SN wound care visits. Measure wound/incision at least weekly. Okay to substitute comparable products from home care formulary. Problem:SN Integumentary/Wounds Goal:Patient/Caregive r will have improved healing and be free of signs and symptoms of complications Completed Completed by SN. Patient did tolerate well. Instruct Patient/Caregiver on wound/incision care procedure as ordered by physician Problem:SN Integumentary/Wounds Goal:Patient/Caregive r will have improved healing and be free of signs and symptoms of complications Completed patient instructed on wound care as ordered by Physician. Instruct on diabetes disease process and management of chronic condition Description: Patient has needs for education of diabetes. Problem:SN Diabetes Goal:Improved management of diabetes Completed patient and caregiver assessed and reinforced on diabetes disease process, diet education, how to carb count, recogonizing s/s of hypoglycemia and hyperglycemia and managing sick days as found in the diabetes self-care booklets. Instruct on cardiovascular disease process and management of condition Description: Patient has following cardiac diagnosis(es): CAD. Problem:SN Cardiovascular Condition Goal:Improved management of cardiovascular disease Completed patient and caregiver instructed on cardiac disease process, self monitoring & symptom reporting and Cardiac Diet. Maintenance COPD Description: Reinforce Acute and Sub-acute management education. Instruct on review zone sheet, nutrition in relation to COPD management, energy conservation, pacing activities, independence in ADLs vs what caregiver should be helping with, home exercise, additional COPD resources available like chronic care clinics as found in the COPD binder. Problem:SN COPD Goal:Improved management of COPD Completed Reinforced Acute and Sub-acute management education. patient and caregiver reinforced on zone sheet, nutrition in relation to COPD management and energy conservation pacing activities and Romeo in ADLs vs what caregiver should be helping with as found in the COPD binder. Sub-acute COPD Description: Reinforce Acute COPD management education. Instruct on zone sheet, methods to reduce infection risks, anxiety management including relaxation techniques, importance of sleep, stress reduction, and coping strategies for living with COPD as found in the COPD binder. Problem:SN COPD Goal:Improved management of COPD Completed Reinforced Acute COPD management education. patient and caregiver reinforced on zone sheet, methods to reduce infection risks, anxiety management including: relaxation techniques and importance of sleep and coping strategies for living with COPD as found in the COPD binder. Acute COPD Description: Instruct on defintion of COPD, signs and symptoms of COPD exacerbation, use of zone sheet, use of MDIs, difference between rescue vs maintenance inhalers, use of nebulizer, smoking cessation, breathing management including pursed lip breathing, diaphragmatic breathing, positioning to reduce SOB, controlled coughing, use of incentive spirometer, and use of acapela as found in the COPD binder. Problem:SN COPD Goal:Improved management of COPD Completed patient and caregiver reinforced on defintion of COPD, signs and symptoms of COPD exacerbation, use of zone sheet, difference between rescue vs maintenance inhalers, smoking cessation and breathing management: pursed lip breathing, diaphragmatic breathing and positioning to reduce SOB as found in the COPD binder. Continued need for Home Care Services Description: POC and certification renewed due to continuing [facility] needs. Problem:Recertificati on Goal:Ongoing review of POC and need for skilled services Completed Instruct patient/caregiver healing process and management measures to promote healing and avoid complications Problem:SN Integumentary/Wounds Goal:Patient/Caregive r will have improved healing and be free of signs and symptoms of complications Completed patient instructed on the following: healing process, signs and symptoms of infection, importance of good nutrition, importance of managing blood sugars, smoking cessation and when to report symptoms. Wound Care: Perform wound care (2) Description: Wound Care Order: Wound location: left buttocks Wound type (etiology): abcess Order: cleanse with NS pat dry pack with idoforme packing. cover with dry dressing Frequency: 3xweek and PRN for soiled Wound care to be completed by patient except for scheduled SN wound care visits. Measure wound/incision at least weekly. Okay to substitute comparable products from home care formulary. Problem:SN Integumentary/Wounds Goal:Patient/Caregive r will have improved healing and be free of signs and symptoms of complications Completed Completed by SN. Patient did tolerate well. Wound Care: Perform wound care (4) Description: Wound Care Order: Wound location: right inner thigh Wound type (etiology): Boil Order: cleanse with mild soap and water rinse pat dry pack with idoform packing and cover with dry dressing Frequency: 3xweek Wound care to be completed by patient except for scheduled SN wound care visits. Measure wound/incision at least weekly. Okay to substitute comparable products from home care formulary. Problem:SN Integumentary/Wounds Goal:Patient/Caregive r will have improved healing and be free of signs and symptoms of complications Completed Completed by SN. Patient did tolerate well. documented in this encounter [facility]'s home Plan of care note* Visit Details Visit Type -SN ROUTINE Discipline -Half-Way Problems Problem Description Start Date Status Goals Interve ntions Medication Education Disciplines: Skilled Services 08/20/2022 Active 1 goal linked to scheduled/documen pawan intervention 1 goal intervention scheduled/document ed in this visit Sepsis Disciplines: Skilled Services 08/20/2022 Active 1 goal linked to scheduled/documen pawan intervention 1 goal intervention scheduled/document ed in this visit Physician Specific Parameters Disciplines: Skilled Services 08/20/2022 Active 1 goal linked to scheduled/documen pawan intervention 1 goal intervention scheduled/document ed in this visit Risk for Falls Disciplines: Skilled Services 08/20/2022 Active 1 goal linked to scheduled/documen pawan intervention 1 goal intervention scheduled/document ed in this visit Pain Disciplines: Skilled Services 08/20/2022 Active 1 goal linked to scheduled/documen pawan intervention 1 goal intervention scheduled/document ed in this visit Diabetic Foot Care Disciplines: Skilled Services 08/20/2022 Active 1 goal linked to scheduled/documen pawan intervention 1 goal intervention scheduled/document ed in this visit Oxygen Disciplines: Skilled Services 08/20/2022 Active 1 goal linked to scheduled/documen pawan intervention 1 goal intervention scheduled/document ed in this visit Nutrition/Hydration Disciplines: Skilled Services 08/20/2022 Active 1 goal linked to scheduled/documen pawan intervention 1 goal intervention scheduled/document ed in this visit High Risk Medications Disciplines: Skilled Services 08/20/2022 Active 1 goal linked to scheduled/documen pawan intervention 4 goal interventions scheduled/document ed in this visit Discharge Disciplines: Skilled Services 08/20/2022 Active 1 goal linked to scheduled/documen pawan intervention 1 goal intervention scheduled/document ed in this visit Advance Directives Disciplines: Skilled Services 08/20/2022 Active 1 goal linked to scheduled/documen pawan intervention 1 goal intervention scheduled/document ed in this visit SN Edema Disciplines: SN 08/20/2022 Active 1 goal linked to scheduled/documen pawan intervention 1 goal intervention scheduled/document ed in this visit SN Integumentary/Wound s Disciplines: SN 08/20/2022 Active 1 goal linked to scheduled/documen pawan intervention 3 goal interventions scheduled/document ed in this visit SN Diabetes Disciplines: SN 08/20/2022 Active 1 goal linked to scheduled/documen pawan intervention 1 goal intervention scheduled/document ed in this visit SN Cardiovascular Condition Disciplines: SN 08/20/2022 Active 1 goal linked to scheduled/documen pawan intervention 1 goal intervention scheduled/document ed in this visit SN COPD Disciplines: SN 09/22/2022 Active 1 goal linked to scheduled/documen pawan intervention 3 goal interventions scheduled/document ed in this visit Recertification Disciplines: Skilled Services 10/17/2022 Active 1 goal linked to scheduled/documen pawan intervention 1 goal intervention scheduled/document ed in this visit SN Integumentary/Wound s Disciplines: SN 11/11/2022 Active 1 goal linked to scheduled/documen pawan intervention 1 goal intervention scheduled/document ed in this visit SN Integumentary/Wound s Disciplines: SN 11/27/2022 Active 1 goal linked to scheduled/documen pawan intervention 1 goal intervention scheduled/document ed in this visit SN Labwork Disciplines: SN 12/15/2022 Active 1 goal linked to scheduled/documen pawan intervention 1 goal intervention scheduled/document ed in this visit Goals Goal Associated Problem Outcome Goal Met? Visit Notes Patient/caregiver will demonstrate ability to obtain, store, identify and administer ordered medications, keep accurate medication list in home, and adhere to medication schedule Description: Patient/caregiver will demonstrate ability to obtain, store, identify and administer ordered medications, keep accurate medication list in home, and adhere to medication schedule by 12/17/22. Medication Education No Patient/caregiver will be able to identify and report symptoms of sepsis Description: Patient/caregiver will be able to identify signs/symptoms of sepsis infection and will verbalize actions to take if suspected by 12/17/22. Sepsis No Patient to maintain parameters within physician-specified ranges throughout certification period Physician Specific Parameters No Manage Risk for falls Description: Patient/caregiver will verbalize knowledge of individualized fall prevention strategies by 12/17/22. Risk for Falls No Manage Pain Description: Patient/caregiver will verbalize knowledge and understanding of appropriate techniques to control pain, including pain medication and non-pharmacological techniques. Patient will verbalize or demonstrate an acceptable level of pain as evidenced by a pain score of 0-3/10 and improvement in ability to perform activities of daily living to be achieved by 12/17/22. Pain No Manage diabetic foot care Description: Patient/caregiver will demonstrate basic understanding of and compliance with diabetic self-care management as evidenced by verbalizing purpose of daily foot care and assessment by . Diabetic Foot Care No Manage oxygen Description: Patient/caregiver will use oxygen safely and effectively in home by verbalizing and demonstrating oxygen safety by 12/17/22. Oxygen No Manage Nutrition/Hydration Description: Patient/caregiver will verbalize/demonstrate knowledge of prescribed diet and/or healthy nutrition to be achieved by 12/17/22. Nutrition/Hydration No Patient/caregiver will teach back high risk medication side effect and precaution education High Risk Medications No Manage discharge planning Description: Patient/caregiver will verbalize understanding of ongoing discharge plan provided related to disease management, arrangements for outpatient and/or community services, obtaining medications, supplies, and DME, as needed throughout certification period. Discharge No Patient/caregiver will make healthcare providers aware of and any changes to Advance Directives throughout certification period Advance Directives No Patient will have improved edema management Description: Patient/caregiver will demonstrate an understanding of edema management strategies as evidenced by resolution or stabilization of edema by 12-17-22. SN Edema No Patient/Caregiver will have improved healing and be free of signs and symptoms of complications Description: Patient/caregiver will verbalize management strategies to promote wound healing & prevent complications as evidenced by improved healing & no complications by 12-17-22. SN Integumentary/Wounds No Improved management of diabetes Description: Improve diabetic management as evidenced by patient/caregiver able to teach back diabetic management strategies by 12/17/22. SN Diabetes No Improved management of cardiovascular disease Description: Improve patient/caregiver management of cardiac disease as evidenced by patient/caregiver ability to teach back cardiac management strategies by . SN Cardiovascular Condition No Improved management of COPD Description: Improve COPD management as evidenced by decreased reports of dyspnea, medication compliance, and patient able to teach back strategies to manage condition. Goal to be achieved by 12-17-22 SN COPD No Ongoing review of POC and need for skilled services Recertification No Patient/Caregiver will have improved healing and be free of signs and symptoms of complications Description: Patient/caregiver will verbalize management strategies to promote wound healing & prevent complications as evidenced by improved healing & no complications by 12-17-22. SN Integumentary/Wounds No Patient/Caregiver will have improved healing and be free of signs and symptoms of complications Description: Patient/caregiver will verbalize management strategies to promote wound healing & prevent complications as evidenced by improved healing & no complications by 12-17-22. SN Integumentary/Wounds No SN to obtain lab specimen without difficulty when ordered throughout certification period SN Labwork No Interventions Intervention Associated Problem/Goal Status Variance Visit Notes Medication Education Description: Evaluate/instruct patient/caregiver on obtaining, storing, identifying and administering ordered medications as well as keeping accurate medication list in the home and adhereing to medication schedule Problem:Medication Education Goal:Patient/caregive r will demonstrate ability to obtain, store, identify and administer ordered medications, keep accurate medication list in home, and adhere to medication schedule Completed Patient and Caregiver instructed on importance of keeping accurate medication list in home, adhering to medication schedule and proper storage of medications. Risk of Sepsis Description: Patient is at risk for sepsis. Monitor closely for s/s of sepsis. Problem:Sepsis Goal:Patient/caregive r will be able to identify and report symptoms of sepsis Completed SPO2 Description: Notify if pulse ox is <92% at rest. Problem:Physician Specific Parameters Goal:Patient to maintain parameters within physician-specified ranges throughout certification period Completed Instruct on individual fall risk factors and strategies to prevent falls and injuries caused by falls. Problem:Risk for Falls Goal:Manage Risk for falls Completed SN: Patient instructed on Eliminating Environmental Hazards: Keep pathways clear, Keep pets out of pathways, Move furniture from pathways, Keep rooms and walkways well lit, Wear supportive shoes or non-skid socks and Keep frequently used items within reach Instruct on pain and instruct on strategies to control pain Problem:Pain Goal:Manage Pain Completed patient and caregiver instructed on techniques to control pain including Pharmacological measures and Non-Pharmacological measures; rest, positioning/elevation, mobility/therapeutic exercise, distraction and breathing/relaxation. Monitor lower extremities for skin lesions and educate on proper foot care Problem:Diabetic Foot Care Goal:Manage diabetic foot care Completed patient instructed on diabetic foot care including daily skin inspection, wearing proper footwear/avoiding going barefoot, wash/dry feet thoroughly, applying moisturizer, avoiding between toes and toenail care. Instruct on fire safety and safe and effective use of oxygen in the home Problem:Oxygen Goal:Manage oxygen Completed patient and caregiver instructed on: findings of safety risk assessment, causes of fires, firerisks for neighboring residences and buildings, precautions that can prevent fire-related injuries, oxygen safety as outlined in Home Care Patient Handbook and recommendations for specific safety risks identified in the home: maintenance of working smoke detectors and changing batteries, establishment of fire escape plan, telephone accessibility and implementation of no-smoking policy in home, including e-cigarettes and posting of No-Smoking signs on entrance doors patient and caregiver demonstrate compliance with safety recommendations. Define patient s appetite/hydration status and implement strategies to improve compliance with prescribed diet and/or healthy nutrition. Problem:Nutrition/Hyd ration Goal:Manage Nutrition/Hydration Completed reinforced patient on implementing strategies to comply with prescribed diet, healthy nutrition and adequate hydration Opioids- educated on high risk medication Problem:High Risk Medications Goal:Patient/caregive r will teach back high risk medication side effect and precaution education Completed patient educated on taking medication(s) as prescribed by provider. Do not stop medication or alter doses without speaking with your provider. Discuss medication effectiveness or side effect concerns with your provider and home care team. Only take opioids as prescribed, do not share your medications, and take proper precautions in storing and properly disposing of opioids once no longer needed. Possible side effects of opioid medication including sedation, decreased rate of breathing, and constipation. Report over sedation to prescribing provider and practice deep breathing techniques every hour while awake. Prevent constipation by increasing water and fiber intake, increasing activity as tolerated, and use stool softener(s) as prescribed. Hypoglycemic (including insulin)- educated on high risk medication Problem:High Risk Medications Goal:Patient/caregive r will teach back high risk medication side effect and precaution education Completed patient educated on taking medication(s) as prescribed by provider. Do not stop medication or skip/alter doses without speaking with your provider. Discuss medication effectiveness or side effect concerns with your provider and home care team. Check blood sugars and keep log as ordered by provider. Monitor for side effects of hypoglycemia such as increased weakness or shaking, moist skin, sweating, fast heartbeat, dizziness, sudden hunger, confusion, pale skin, numbness in mouth or tongue, irritability, nervousness, unsteadiness, nightmares, bad dreams, and restless sleep. Checking your blood sugar routinely and eating a consistent diabetic diet can help regulate blood sugars and reduce side effects. Antiplatelet- educated on high risk medication Problem:High Risk Medications Goal:Patient/caregive r will teach back high risk medication side effect and precaution education Completed patient educated on taking medication(s) as prescribed by provider. Do not stop medication or alter doses without speaking with your provider. Discuss medication effectiveness or side effect concerns with your provider and home care team. Discuss all medications you are taking, even odsz-ikk-agwpzki medicines, with your provider and pharmacist since many drugs can interact with antiplatelet medications. If you forget to take a dose, DO NOT take a double dose. Take the missed dose as soon as possible on the same day. DO NOT take a double dose the next day to make up for the missed dose. Watch for signs of abnormal or excessive bleeding and bruising (refer to Bleeding Precautions education). Call your health care provider right away if you suspect something is wrong. Antibiotic- educated on high risk medication Problem:High Risk Medications Goal:Patient/caregive r will teach back high risk medication side effect and precaution education Completed patient educated on taking medication(s) as prescribed by provider. Do not stop medication or alter doses without speaking with your provider. Discuss medication effectiveness or side effect concerns with your provider and home care team. Take the full dispensed amount even if you start feeling better, as bacteria can become resistant to antibiotic treatment if you do not finish your prescription. Common side effects are upset stomach and diarrhea. Take your antibiotics with food unless otherwise indicated to help with indigestion. Taking an qbdl-sjk-ufyukzs probiotic or eating yogurt with live and active cultures three times a day can help prevent antibiotic-associated diarrhea. Call your provider immediately if you develop rashes or hives as this could be a delayed allergic reaction. Seek emergency treatment if you develop severe allergic reaction symptoms such as mouth or tongue swelling. Instruct on ongoing discharge plan Problem:Discharge Goal:Manage discharge planning Completed Ongoing Discharge plan: Discharge plan discussed with patient and caregiver including frequency and duration for home SN and plan for transition to: caregiver assistance. Determine patient's Advance Directive Status Description: Patient does not have advance directives. Patient/Caregiver declined Advance Directive information. Problem:Advance Directives Goal:Patient/caregive r will make healthcare providers aware of and any changes to Advance Directives throughout certification period Completed Discussed Advance Directives with Patient and/or Caregiver. Referred patient to Home Care handbook for further information on Healthcare DPOA & Living Will. Assess and instruct on measures to reduce edema Problem:SN Edema Goal:Patient will have improved edema management Completed patient instructed on elevation, compression, diet, medication compliance and benefits of activity. Wound Care: Perform wound care (1) Description: Wound Care Order: Wound location: perianal Wound type (etiology): abcess Order: Lightly pack perineal wound with Io doform, cover with gauze and ABD. Wash wound with soap and water or wound cleanser with each dressing change Frequency: daily Wound care to be completed by caregiver except for scheduled SN wound care visits. Measure wound/incision at least weekly. Okay to substitute comparable products from home care formulary. Problem:SN Integumentary/Wounds Goal:Patient/Caregive r will have improved healing and be free of signs and symptoms of complications Completed Completed by SN. Patient did tolerate well. Instruct patient/caregiver healing process and management measures to promote healing and avoid complications Problem:SN Integumentary/Wounds Goal:Patient/Caregive r will have improved healing and be free of signs and symptoms of complications Completed patient instructed on the following: healing process, signs and symptoms of infection, importance of good nutrition, importance of managing blood sugars, smoking cessation and when to report symptoms. Instruct Patient/Caregiver on wound/incision care procedure as ordered by physician Problem:SN Integumentary/Wounds Goal:Patient/Caregive r will have improved healing and be free of signs and symptoms of complications Completed patient instructed on wound care as ordered by Physician. Instruct on diabetes disease process and management of chronic condition Description: Patient has needs for education of diabetes. Problem:SN Diabetes Goal:Improved management of diabetes Completed patient and caregiver assessed and reinforced on diabetes disease process, diet education, how to carb count, recogonizing s/s of hypoglycemia and hyperglycemia and managing sick days as found in the diabetes self-care booklets. Instruct on cardiovascular disease process and management of condition Description: Patient has following cardiac diagnosis(es): CAD. Problem:SN Cardiovascular Condition Goal:Improved management of cardiovascular disease Completed patient and caregiver instructed on cardiac disease process, self monitoring & symptom reporting and Cardiac Diet. Maintenance COPD Description: Reinforce Acute and Sub-acute management education. Instruct on review zone sheet, nutrition in relation to COPD management, energy conservation, pacing activities, independence in ADLs vs what caregiver should be helping with, home exercise, additional COPD resources available like chronic care clinics as found in the COPD binder. Problem:SN COPD Goal:Improved management of COPD Completed Reinforced Acute and Sub-acute management education. patient and caregiver reinforced on zone sheet, nutrition in relation to COPD management and energy conservation pacing activities, Romeo in ADLs vs what caregiver should be helping with and home exercise as found in the COPD binder. Sub-acute COPD Description: Reinforce Acute COPD management education. Instruct on zone sheet, methods to reduce infection risks, anxiety management including relaxation techniques, importance of sleep, stress reduction, and coping strategies for living with COPD as found in the COPD binder. Problem:SN COPD Goal:Improved management of COPD Completed Reinforced Acute COPD management education. patient reinforced on zone sheet, methods to reduce infection risks, anxiety management including: relaxation techniques, importance of sleep and stress reduction and coping strategies for living with COPD as found in the COPD binder. Acute COPD Description: Instruct on defintion of COPD, signs and symptoms of COPD exacerbation, use of zone sheet, use of MDIs, difference between rescue vs maintenance inhalers, use of nebulizer, smoking cessation, breathing management including pursed lip breathing, diaphragmatic breathing, positioning to reduce SOB, controlled coughing, use of incentive spirometer, and use of acapela as found in the COPD binder. Problem:SN COPD Goal:Improved management of COPD Completed patient and caregiver reinforced on defintion of COPD, signs and symptoms of COPD exacerbation, use of zone sheet, smoking cessation and breathing management: pursed lip breathing, diaphragmatic breathing and positioning to reduce SOB as found in the COPD binder. Continued need for Home Care Services Description: POC and certification renewed due to continuing [facility] needs. Problem:Recertificati on Goal:Ongoing review of POC and need for skilled services Completed Wound Care: Perform wound care (2) Description: Wound Care Order: Wound location: left buttocks Wound type (etiology): abcess Order: cleanse with NS pat dry pack with idoforme packing. cover with dry dressing Frequency: 3xweek and PRN for soiled Wound care to be completed by patient except for scheduled SN wound care visits. Measure wound/incision at least weekly. Okay to substitute comparable products from home care formulary. Problem:SN Integumentary/Wounds Goal:Patient/Caregive r will have improved healing and be free of signs and symptoms of complications Completed Completed by SN. Patient did tolerate well. Wound Care: Perform wound care (4) Description: Wound Care Order: Wound location: right inner thigh Wound type (etiology): Boil Order: cleanse with mild soap and water rinse pat dry pack with idoform packing and cover with dry dressing Frequency: 3xweek Wound care to be completed by patient except for scheduled SN wound care visits. Measure wound/incision at least weekly. Okay to substitute comparable products from home care formulary. Problem:SN Integumentary/Wounds Goal:Patient/Caregive r will have improved healing and be free of signs and symptoms of complications Completed Completed by SN. Patient did tolerate well. SN to obtain lab specimen (1) Description: Obtain wound culture specimen on 12-15-22. Results to Jr. Phone/Fax number [phone]. Dx code(s): K61.0. Problem:SN Labwork Goal:SN to obtain lab specimen without difficulty when ordered throughout certification period Completed documented in this encounter [facility]'s home Plan of care note* Visit Details Visit Type -SN ROUTINE Discipline -Half-Way Problems Problem Description Start Date Status Goals Interve ntions Medication Education Disciplines: Skilled Services 08/20/2022 Active 1 goal linked to scheduled/documen pawan intervention 1 goal intervention scheduled/document ed in this visit Sepsis Disciplines: Skilled Services 08/20/2022 Active 1 goal linked to scheduled/documen pawan intervention 1 goal intervention scheduled/document ed in this visit Physician Specific Parameters Disciplines: Skilled Services 08/20/2022 Active 1 goal linked to scheduled/documen pawan intervention 1 goal intervention scheduled/document ed in this visit Risk for Falls Disciplines: Skilled Services 08/20/2022 Active 1 goal linked to scheduled/documen pawan intervention 1 goal intervention scheduled/document ed in this visit Pain Disciplines: Skilled Services 08/20/2022 Active 1 goal linked to scheduled/documen pawan intervention 1 goal intervention scheduled/document ed in this visit Diabetic Foot Care Disciplines: Skilled Services 08/20/2022 Active 1 goal linked to scheduled/documen pawan intervention 1 goal intervention scheduled/document ed in this visit Oxygen Disciplines: Skilled Services 08/20/2022 Active 1 goal linked to scheduled/documen pawan intervention 1 goal intervention scheduled/document ed in this visit High Risk Medications Disciplines: Skilled Services 08/20/2022 Active 1 goal linked to scheduled/documen pawan intervention 4 goal interventions scheduled/document ed in this visit Discharge Disciplines: Skilled Services 08/20/2022 Active 1 goal linked to scheduled/documen pawan intervention 1 goal intervention scheduled/document ed in this visit SN Edema Disciplines: SN 08/20/2022 Active 1 goal linked to scheduled/documen pawan intervention 1 goal intervention scheduled/document ed in this visit SN Diabetes Disciplines: SN 08/20/2022 Active 1 goal linked to scheduled/documen pawan intervention 1 goal intervention scheduled/document ed in this visit SN Cardiovascular Condition Disciplines: SN 08/20/2022 Active 1 goal linked to scheduled/documen pawan intervention 1 goal intervention scheduled/document ed in this visit SN Learning Assessment Disciplines: SN 08/20/2022 Active 1 goal linked to scheduled/documen pawan intervention 1 goal intervention scheduled/document ed in this visit SN COPD Disciplines: SN 09/22/2022 Active 1 goal linked to scheduled/documen pawan intervention 2 goal interventions scheduled/document ed in this visit SN Integumentary/Wound s Disciplines: SN 11/09/2022 Active 1 goal linked to scheduled/documen pawan intervention 2 goal interventions scheduled/document ed in this visit SN Integumentary/Wound s Disciplines: SN 11/11/2022 Active 1 goal linked to scheduled/documen pawan intervention 1 goal intervention scheduled/document ed in this visit SN Integumentary/Wound s Disciplines: SN 11/27/2022 Active 1 goal linked to scheduled/documen pawan intervention 1 goal intervention scheduled/document ed in this visit Recertification Disciplines: Skilled Services 12/17/2022 Active 1 goal linked to scheduled/documen pawan intervention 1 goal intervention scheduled/document ed in this visit Goals Goal Associated Problem Outcome Goal Met? Visit Notes Patient/caregiver will demonstrate ability to obtain, store, identify and administer ordered medications, keep accurate medication list in home, and adhere to medication schedule Description: Patient/caregiver will demonstrate ability to obtain, store, identify and administer ordered medications, keep accurate medication list in home, and adhere to medication schedule by 02-15-23. Medication Education No Patient/caregiver will be able to identify and report symptoms of sepsis Description: Patient/caregiver will be able to identify signs/symptoms of sepsis infection and will verbalize actions to take if suspected by 02-15-23. Sepsis No Patient to maintain parameters within physician-specified ranges throughout certification period Physician Specific Parameters No Manage Risk for falls Description: Patient/caregiver will verbalize knowledge of individualized fall prevention strategies by 02-15-23. Risk for Falls No Manage Pain Description: Patient/caregiver will verbalize knowledge and understanding of appropriate techniques to control pain, including pain medication and non-pharmacological techniques. Patient will verbalize or demonstrate an acceptable level of pain as evidenced by a pain score of 0-3/10 and improvement in ability to perform activities of daily living to be achieved by 02-15-23. Pain No Manage diabetic foot care Description: Patient/caregiver will demonstrate basic understanding of and compliance with diabetic self-care management as evidenced by verbalizing purpose of daily foot care and assessment by 02-15-23. Diabetic Foot Care No Manage oxygen Description: Patient/caregiver will use oxygen safely and effectively in home by verbalizing and demonstrating oxygen safety by 02-15-23. Oxygen No Patient/caregiver will teach back high risk medication side effect and precaution education High Risk Medications No Manage discharge planning Description: Patient/caregiver will verbalize understanding of ongoing discharge plan provided related to disease management, arrangements for outpatient and/or community services, obtaining medications, supplies, and DME, as needed throughout certification period. Discharge No Patient will have improved edema management Description: Patient/caregiver will demonstrate an understanding of edema management strategies as evidenced by resolution or stabilization of edema by 02-15-23. SN Edema No Improved management of diabetes Description: Improve diabetic management as evidenced by patient/caregiver able to teach back diabetic management strategies by 02-15-23. SN Diabetes No Improved management of cardiovascular disease Description: Improve patient/caregiver management of cardiac disease as evidenced by patient/caregiver ability to teach back cardiac management strategies by 02-15-23. SN Cardiovascular Condition No Demonstrate understanding of education Description: Patient and/or caregiver will verbalize understanding of educational instruction provided throughout certification period. SN Learning Assessment No Improved management of COPD Description: Improve COPD management as evidenced by decreased reports of dyspnea, medication compliance, and patient able to teach back strategies to manage condition. Goal to be achieved by 02-15-23 SN COPD No Patient/Caregiver will have improved healing and be free of signs and symptoms of complications Description: Patient/caregiver will verbalize management strategies to promote wound healing & prevent complications as evidenced by improved healing & no complications by 02-15-23. SN Integumentary/Wounds No Patient/Caregiver will have improved healing and be free of signs and symptoms of complications Description: Patient/caregiver will verbalize management strategies to promote wound healing & prevent complications as evidenced by improved healing & no complications by 02-15-23. SN Integumentary/Wounds No Patient/Caregiver will have improved healing and be free of signs and symptoms of complications Description: Patient/caregiver will verbalize management strategies to promote wound healing & prevent complications as evidenced by improved healing & no complications by 02-15-23. SN Integumentary/Wounds No Ongoing review of POC and need for skilled services Recertification No Interventions Intervention Associated Problem/Goal Status Variance Visit Notes Medication Education Description: Evaluate/instruct patient/caregiver on obtaining, storing, identifying and administering ordered medications as well as keeping accurate medication list in the home and adhereing to medication schedule Problem:Medication Education Goal:Patient/caregive r will demonstrate ability to obtain, store, identify and administer ordered medications, keep accurate medication list in home, and adhere to medication schedule Completed Patient instructed on importance of keeping accurate medication list in home, adhering to medication schedule and proper storage of medications. Risk of Sepsis Description: Patient is at risk for sepsis. Monitor closely for s/s of sepsis. Problem:Sepsis Goal:Patient/caregive r will be able to identify and report symptoms of sepsis Completed SPO2 Description: Notify if pulse ox is <92% at rest. Problem:Physician Specific Parameters Goal:Patient to maintain parameters within physician-specified ranges throughout certification period Completed Instruct on individual fall risk factors and strategies to prevent falls and injuries caused by falls. Problem:Risk for Falls Goal:Manage Risk for falls Completed SN: Patient instructed on Eliminating Environmental Hazards: Keep pathways clear, Keep pets out of pathways, Keep rooms and walkways well lit, Wear supportive shoes or non-skid socks and Keep frequently used items within reach Instruct on pain and instruct on strategies to control pain Problem:Pain Goal:Manage Pain Completed patient instructed on techniques to control pain including Pharmacological measures and Non-Pharmacological measures; rest, positioning/elevation and mobility/therapeutic exercise. Monitor lower extremities for skin lesions and educate on proper foot care Problem:Diabetic Foot Care Goal:Manage diabetic foot care Completed patient instructed on diabetic foot care including daily skin inspection, wearing proper footwear/avoiding going barefoot, wash/dry feet thoroughly, applying moisturizer, avoiding between toes and toenail care. Instruct on fire safety and safe and effective use of oxygen in the home Problem:Oxygen Goal:Manage oxygen Completed patient and caregiver instructed on: findings of safety risk assessment, causes of fires, firerisks for neighboring residences and buildings, precautions that can prevent fire-related injuries, oxygen safety as outlined in Home Care Patient Handbook and recommendations for specific safety risks identified in the home: maintenance of working smoke detectors and changing batteries, establishment of fire escape plan, telephone accessibility and implementation of no-smoking policy in home, including e-cigarettes and posting of No-Smoking signs on entrance doors patient and caregiver demonstrate compliance with safety recommendations. Opioids- educated on high risk medication Problem:High Risk Medications Goal:Patient/caregive r will teach back high risk medication side effect and precaution education Completed patient educated on taking medication(s) as prescribed by provider. Do not stop medication or alter doses without speaking with your provider. Discuss medication effectiveness or side effect concerns with your provider and home care team. Only take opioids as prescribed, do not share your medications, and take proper precautions in storing and properly disposing of opioids once no longer needed. Possible side effects of opioid medication including sedation, decreased rate of breathing, and constipation. Report over sedation to prescribing provider and practice deep breathing techniques every hour while awake. Prevent constipation by increasing water and fiber intake, increasing activity as tolerated, and use stool softener(s) as prescribed. Hypoglycemic (including insulin)- educated on high risk medication Problem:High Risk Medications Goal:Patient/caregive r will teach back high risk medication side effect and precaution education Completed patient educated on taking medication(s) as prescribed by provider. Do not stop medication or skip/alter doses without speaking with your provider. Discuss medication effectiveness or side effect concerns with your provider and home care team. Check blood sugars and keep log as ordered by provider. Monitor for side effects of hypoglycemia such as increased weakness or shaking, moist skin, sweating, fast heartbeat, dizziness, sudden hunger, confusion, pale skin, numbness in mouth or tongue, irritability, nervousness, unsteadiness, nightmares, bad dreams, and restless sleep. Checking your blood sugar routinely and eating a consistent diabetic diet can help regulate blood sugars and reduce side effects. Antiplatelet- educated on high risk medication Problem:High Risk Medications Goal:Patient/caregive r will teach back high risk medication side effect and precaution education Completed patient educated on taking medication(s) as prescribed by provider. Do not stop medication or alter doses without speaking with your provider. Discuss medication effectiveness or side effect concerns with your provider and home care team. Discuss all medications you are taking, even fuyl-euf-vfiivym medicines, with your provider and pharmacist since many drugs can interact with antiplatelet medications. If you forget to take a dose, DO NOT take a double dose. Take the missed dose as soon as possible on the same day. DO NOT take a double dose the next day to make up for the missed dose. Watch for signs of abnormal or excessive bleeding and bruising (refer to Bleeding Precautions education). Call your health care provider right away if you suspect something is wrong. Antibiotic- educated on high risk medication Problem:High Risk Medications Goal:Patient/caregive r will teach back high risk medication side effect and precaution education Completed patient educated on taking medication(s) as prescribed by provider. Do not stop medication or alter doses without speaking with your provider. Discuss medication effectiveness or side effect concerns with your provider and home care team. Take the full dispensed amount even if you start feeling better, as bacteria can become resistant to antibiotic treatment if you do not finish your prescription. Common side effects are upset stomach and diarrhea. Take your antibiotics with food unless otherwise indicated to help with indigestion. Taking an wtou-aqm-nkftjgh probiotic or eating yogurt with live and active cultures three times a day can help prevent antibiotic-associated diarrhea. Call your provider immediately if you develop rashes or hives as this could be a delayed allergic reaction. Seek emergency treatment if you develop severe allergic reaction symptoms such as mouth or tongue swelling. Instruct on ongoing discharge plan Problem:Discharge Goal:Manage discharge planning Completed Ongoing Discharge plan: Discharge plan discussed with patient including frequency and duration for home SN and plan for transition to: caregiver assistance. Assess and instruct on measures to reduce edema Problem:SN Edema Goal:Patient will have improved edema management Completed patient instructed on elevation, compression, diet, medication compliance and benefits of activity. Instruct on diabetes disease process and management of chronic condition Description: Patient has needs for education of diabetes. Problem:SN Diabetes Goal:Improved management of diabetes Completed patient assessed and reinforced on diabetes disease process, diet education, how to carb count and recogonizing s/s of hypoglycemia and hyperglycemia as found in the diabetes self-care booklets. Instruct on cardiovascular disease process and management of condition Description: Patient has following cardiac diagnosis(es): CAD. Problem:SN Cardiovascular Condition Goal:Improved management of cardiovascular disease Completed patient instructed on cardiac disease process, self monitoring & symptom reporting and Cardiac Diet. Instruct and educate on knowledge deficits Problem:SN Learning Assessment Goal:Demonstrate understanding of education Completed patient verbalize and/or demonstrate understanding of nursing education completed today. Education methods include: verbal cues and teach back. Further education required to improve knowledge and compliance with cardiac disease management, depression/anxiety care management, diabetic care management, fall prevention/home safety strategies, gastrointestinal care management and incision/wound care management. Maintenance COPD Description: Reinforce Acute and Sub-acute management education. Instruct on review zone sheet, nutrition in relation to COPD management, energy conservation, pacing activities, independence in ADLs vs what caregiver should be helping with, home exercise, additional COPD resources available like chronic care clinics as found in the COPD binder. Problem:SN COPD Goal:Improved management of COPD Completed Reinforced Acute and Sub-acute management education. patient reinforced on zone sheet, nutrition in relation to COPD management and energy conservation pacing activities and Romeo in ADLs vs what caregiver should be helping with as found in the COPD binder. Acute COPD Description: Instruct on defintion of COPD, signs and symptoms of COPD exacerbation, use of zone sheet, use of MDIs, difference between rescue vs maintenance inhalers, use of nebulizer, smoking cessation, breathing management including pursed lip breathing, diaphragmatic breathing, positioning to reduce SOB, controlled coughing, use of incentive spirometer, and use of acapela as found in the COPD binder. Problem:SN COPD Goal:Improved management of COPD Completed patient reinforced on defintion of COPD, signs and symptoms of COPD exacerbation, difference between rescue vs maintenance inhalers, use of nebulizer, smoking cessation and breathing management: pursed lip breathing, diaphragmatic breathing and positioning to reduce SOB as found in the COPD binder. Instruct patient/caregiver healing process and management measures to promote healing and avoid complications Problem:SN Integumentary/Wounds Goal:Patient/Caregive r will have improved healing and be free of signs and symptoms of complications Completed patient instructed on the following: healing process, signs and symptoms of infection, importance of good nutrition, importance of managing blood sugars, smoking cessation and when to report symptoms. Instruct Patient/Caregiver on wound/incision care procedure as ordered by physician Description: L gluteal abscess care daily and as needed: Cleanse area in shower or with soap/water, cover with clean dry dressing and change each day and as needed for drainage. Continue this until no drainage present on dressing. Problem:SN Integumentary/Wounds Goal:Patient/Caregive r will have improved healing and be free of signs and symptoms of complications Completed patient instructed on wound care as ordered by Physician. Wound Care: Perform wound care (2) Description: Wound Care Order: Wound location: left buttocks Wound type (etiology): abcess Order: cleanse with NS pat dry pack with idoforme packing. cover with dry dressing Frequency: 3xweek and PRN for soiled Wound care to be completed by patient except for scheduled SN wound care visits. Measure wound/incision at least weekly. Okay to substitute comparable products from home care formulary. Problem:SN Integumentary/Wounds Goal:Patient/Caregive r will have improved healing and be free of signs and symptoms of complications Completed Completed by SN. Patient did tolerate well. Wound Care: Perform wound care (4) Description: Wound Care Order: Wound location: right inner thigh Wound type (etiology): Boil Order: cleanse with mild soap and water rinse pat dry pack with idoform packing and cover with dry dressing Frequency: 3xweek Wound care to be completed by patient except for scheduled SN wound care visits. Measure wound/incision at least weekly. Okay to substitute comparable products from home care formulary. Problem:SN Integumentary/Wounds Goal:Patient/Caregive r will have improved healing and be free of signs and symptoms of complications Completed Completed by SN. Patient did tolerate well. Continued need for Home Care Services Description: POC and certification renewed due to continuing [facility] needs. Problem:Recertificati on Goal:Ongoing review of POC and need for skilled services Completed documented in this encounter [facility]'s home Plan of care note* Visit Details Visit Type -SN ROUTINE Discipline -Half-Way Problems Problem Description Start Date Status Goals Interve ntions Medication Education Disciplines: Skilled Services 08/20/2022 Active 1 goal linked to scheduled/documen pawan intervention 1 goal intervention scheduled/document ed in this visit Sepsis Disciplines: Skilled Services 08/20/2022 Active 1 goal linked to scheduled/documen pawan intervention 1 goal intervention scheduled/document ed in this visit Physician Specific Parameters Disciplines: Skilled Services 08/20/2022 Active 1 goal linked to scheduled/documen pawan intervention 1 goal intervention scheduled/document ed in this visit Risk for Falls Disciplines: Skilled Services 08/20/2022 Active 1 goal linked to scheduled/documen pawan intervention 1 goal intervention scheduled/document ed in this visit Pain Disciplines: Skilled Services 08/20/2022 Active 1 goal linked to scheduled/documen pawan intervention 1 goal intervention scheduled/document ed in this visit Diabetic Foot Care Disciplines: Skilled Services 08/20/2022 Active 1 goal linked to scheduled/documen pawan intervention 1 goal intervention scheduled/document ed in this visit Oxygen Disciplines: Skilled Services 08/20/2022 Active 1 goal linked to scheduled/documen pawan intervention 1 goal intervention scheduled/document ed in this visit High Risk Medications Disciplines: Skilled Services 08/20/2022 Active 1 goal linked to scheduled/documen pawan intervention 4 goal interventions scheduled/document ed in this visit Discharge Disciplines: Skilled Services 08/20/2022 Active 1 goal linked to scheduled/documen pawan intervention 1 goal intervention scheduled/document ed in this visit SN Edema Disciplines: SN 08/20/2022 Active 1 goal linked to scheduled/documen pawan intervention 1 goal intervention scheduled/document ed in this visit SN Diabetes Disciplines: SN 08/20/2022 Active 1 goal linked to scheduled/documen pawan intervention 1 goal intervention scheduled/document ed in this visit SN Cardiovascular Condition Disciplines: SN 08/20/2022 Active 1 goal linked to scheduled/documen pawan intervention 1 goal intervention scheduled/document ed in this visit SN Learning Assessment Disciplines: SN 08/20/2022 Active 1 goal linked to scheduled/documen pawan intervention 1 goal intervention scheduled/document ed in this visit SN COPD Disciplines: SN 09/22/2022 Active 1 goal linked to scheduled/documen pawan intervention 3 goal interventions scheduled/document ed in this visit SN Integumentary/Wound s Disciplines: SN 11/09/2022 Active 1 goal linked to scheduled/documen pawan intervention 2 goal interventions scheduled/document ed in this visit SN Integumentary/Wound s Disciplines: SN 11/11/2022 Active 1 goal linked to scheduled/documen pawan intervention 1 goal intervention scheduled/document ed in this visit SN Integumentary/Wound s Disciplines: SN 11/27/2022 Active 1 goal linked to scheduled/documen pawan intervention 1 goal intervention scheduled/document ed in this visit Recertification Disciplines: Skilled Services 12/17/2022 Active 1 goal linked to scheduled/documen pawan intervention 1 goal intervention scheduled/document ed in this visit Goals Goal Associated Problem Outcome Goal Met? Visit Notes Patient/caregiver will demonstrate ability to obtain, store, identify and administer ordered medications, keep accurate medication list in home, and adhere to medication schedule Description: Patient/caregiver will demonstrate ability to obtain, store, identify and administer ordered medications, keep accurate medication list in home, and adhere to medication schedule by 02-15-23. Medication Education No Patient/caregiver will be able to identify and report symptoms of sepsis Description: Patient/caregiver will be able to identify signs/symptoms of sepsis infection and will verbalize actions to take if suspected by 02-15-23. Sepsis No Patient to maintain parameters within physician-specified ranges throughout certification period Physician Specific Parameters No Manage Risk for falls Description: Patient/caregiver will verbalize knowledge of individualized fall prevention strategies by 02-15-23. Risk for Falls No Manage Pain Description: Patient/caregiver will verbalize knowledge and understanding of appropriate techniques to control pain, including pain medication and non-pharmacological techniques. Patient will verbalize or demonstrate an acceptable level of pain as evidenced by a pain score of 0-3/10 and improvement in ability to perform activities of daily living to be achieved by 02-15-23. Pain No Manage diabetic foot care Description: Patient/caregiver will demonstrate basic understanding of and compliance with diabetic self-care management as evidenced by verbalizing purpose of daily foot care and assessment by 02-15-23. Diabetic Foot Care No Manage oxygen Description: Patient/caregiver will use oxygen safely and effectively in home by verbalizing and demonstrating oxygen safety by 02-15-23. Oxygen No Patient/caregiver will teach back high risk medication side effect and precaution education High Risk Medications No Manage discharge planning Description: Patient/caregiver will verbalize understanding of ongoing discharge plan provided related to disease management, arrangements for outpatient and/or community services, obtaining medications, supplies, and DME, as needed throughout certification period. Discharge No Patient will have improved edema management Description: Patient/caregiver will demonstrate an understanding of edema management strategies as evidenced by resolution or stabilization of edema by 02-15-23. SN Edema No Improved management of diabetes Description: Improve diabetic management as evidenced by patient/caregiver able to teach back diabetic management strategies by 02-15-23. SN Diabetes No Improved management of cardiovascular disease Description: Improve patient/caregiver management of cardiac disease as evidenced by patient/caregiver ability to teach back cardiac management strategies by 02-15-23. SN Cardiovascular Condition No Demonstrate understanding of education Description: Patient and/or caregiver will verbalize understanding of educational instruction provided throughout certification period. SN Learning Assessment No Improved management of COPD Description: Improve COPD management as evidenced by decreased reports of dyspnea, medication compliance, and patient able to teach back strategies to manage condition. Goal to be achieved by 02-15-23 SN COPD No Patient/Caregiver will have improved healing and be free of signs and symptoms of complications Description: Patient/caregiver will verbalize management strategies to promote wound healing & prevent complications as evidenced by improved healing & no complications by 02-15-23. SN Integumentary/Wounds No Patient/Caregiver will have improved healing and be free of signs and symptoms of complications Description: Patient/caregiver will verbalize management strategies to promote wound healing & prevent complications as evidenced by improved healing & no complications by 02-15-23. SN Integumentary/Wounds No Patient/Caregiver will have improved healing and be free of signs and symptoms of complications Description: Patient/caregiver will verbalize management strategies to promote wound healing & prevent complications as evidenced by improved healing & no complications by 02-15-23. SN Integumentary/Wounds No Ongoing review of POC and need for skilled services Recertification No Interventions Intervention Associated Problem/Goal Status Variance Visit Notes Medication Education Description: Evaluate/instruct patient/caregiver on obtaining, storing, identifying and administering ordered medications as well as keeping accurate medication list in the home and adhereing to medication schedule Problem:Medication Education Goal:Patient/caregive r will demonstrate ability to obtain, store, identify and administer ordered medications, keep accurate medication list in home, and adhere to medication schedule Completed Patient instructed on importance of keeping accurate medication list in home, adhering to medication schedule and proper storage of medications. Risk of Sepsis Description: Patient is at risk for sepsis. Monitor closely for s/s of sepsis. Problem:Sepsis Goal:Patient/caregive r will be able to identify and report symptoms of sepsis Completed SPO2 Description: Notify if pulse ox is <92% at rest. Problem:Physician Specific Parameters Goal:Patient to maintain parameters within physician-specified ranges throughout certification period Completed Instruct on individual fall risk factors and strategies to prevent falls and injuries caused by falls. Problem:Risk for Falls Goal:Manage Risk for falls Completed SN: Patient instructed on Eliminating Environmental Hazards: Keep pathways clear, Keep pets out of pathways, Keep rooms and walkways well lit, Wear supportive shoes or non-skid socks and Keep frequently used items within reach Instruct on pain and instruct on strategies to control pain Problem:Pain Goal:Manage Pain Completed patient instructed on techniques to control pain including Pharmacological measures and Non-Pharmacological measures; rest, positioning/elevation, mobility/therapeutic exercise, distraction and breathing/relaxation. Monitor lower extremities for skin lesions and educate on proper foot care Problem:Diabetic Foot Care Goal:Manage diabetic foot care Completed patient instructed on diabetic foot care including daily skin inspection, wearing proper footwear/avoiding going barefoot, wash/dry feet thoroughly, applying moisturizer, avoiding between toes and toenail care. Instruct on fire safety and safe and effective use of oxygen in the home Problem:Oxygen Goal:Manage oxygen Completed patient instructed on: findings of safety risk assessment, causes of fires, firerisks for neighboring residences and buildings, precautions that can prevent fire-related injuries, oxygen safety as outlined in Home Care Patient Handbook and recommendations for specific safety risks identified in the home: maintenance of working smoke detectors and changing batteries, establishment of fire escape plan, telephone accessibility and implementation of no-smoking policy in home, including e-cigarettes and posting of No-Smoking signs on entrance doors patient and caregiver demonstrate compliance with safety recommendations. Opioids- educated on high risk medication Problem:High Risk Medications Goal:Patient/caregive r will teach back high risk medication side effect and precaution education Completed patient educated on taking medication(s) as prescribed by provider. Do not stop medication or alter doses without speaking with your provider. Discuss medication effectiveness or side effect concerns with your provider and home care team. Only take opioids as prescribed, do not share your medications, and take proper precautions in storing and properly disposing of opioids once no longer needed. Possible side effects of opioid medication including sedation, decreased rate of breathing, and constipation. Report over sedation to prescribing provider and practice deep breathing techniques every hour while awake. Prevent constipation by increasing water and fiber intake, increasing activity as tolerated, and use stool softener(s) as prescribed. Hypoglycemic (including insulin)- educated on high risk medication Problem:High Risk Medications Goal:Patient/caregive r will teach back high risk medication side effect and precaution education Completed patient educated on taking medication(s) as prescribed by provider. Do not stop medication or skip/alter doses without speaking with your provider. Discuss medication effectiveness or side effect concerns with your provider and home care team. Check blood sugars and keep log as ordered by provider. Monitor for side effects of hypoglycemia such as increased weakness or shaking, moist skin, sweating, fast heartbeat, dizziness, sudden hunger, confusion, pale skin, numbness in mouth or tongue, irritability, nervousness, unsteadiness, nightmares, bad dreams, and restless sleep. Checking your blood sugar routinely and eating a consistent diabetic diet can help regulate blood sugars and reduce side effects. Antiplatelet- educated on high risk medication Problem:High Risk Medications Goal:Patient/caregive r will teach back high risk medication side effect and precaution education Completed patient educated on taking medication(s) as prescribed by provider. Do not stop medication or alter doses without speaking with your provider. Discuss medication effectiveness or side effect concerns with your provider and home care team. Discuss all medications you are taking, even hryg-rgg-sitbgbl medicines, with your provider and pharmacist since many drugs can interact with antiplatelet medications. If you forget to take a dose, DO NOT take a double dose. Take the missed dose as soon as possible on the same day. DO NOT take a double dose the next day to make up for the missed dose. Watch for signs of abnormal or excessive bleeding and bruising (refer to Bleeding Precautions education). Call your health care provider right away if you suspect something is wrong. Antibiotic- educated on high risk medication Problem:High Risk Medications Goal:Patient/caregive r will teach back high risk medication side effect and precaution education Completed patient educated on taking medication(s) as prescribed by provider. Do not stop medication or alter doses without speaking with your provider. Discuss medication effectiveness or side effect concerns with your provider and home care team. Take the full dispensed amount even if you start feeling better, as bacteria can become resistant to antibiotic treatment if you do not finish your prescription. Common side effects are upset stomach and diarrhea. Take your antibiotics with food unless otherwise indicated to help with indigestion. Taking an cbul-vqz-uvnyuje probiotic or eating yogurt with live and active cultures three times a day can help prevent antibiotic-associated diarrhea. Call your provider immediately if you develop rashes or hives as this could be a delayed allergic reaction. Seek emergency treatment if you develop severe allergic reaction symptoms such as mouth or tongue swelling. Instruct on ongoing discharge plan Problem:Discharge Goal:Manage discharge planning Completed Ongoing Discharge plan: Discharge plan discussed with patient including frequency and duration for home SN and plan for transition to: caregiver assistance. Assess and instruct on measures to reduce edema Problem:SN Edema Goal:Patient will have improved edema management Completed patient instructed on elevation, compression, diet, medication compliance and benefits of activity. Instruct on diabetes disease process and management of chronic condition Description: Patient has needs for education of diabetes. Problem:SN Diabetes Goal:Improved management of diabetes Completed patient assessed and reinforced on diabetes disease process, diet education, how to carb count, recogonizing s/s of hypoglycemia and hyperglycemia and managing sick days as found in the diabetes self-care booklets. Instruct on cardiovascular disease process and management of condition Description: Patient has following cardiac diagnosis(es): CAD. Problem:SN Cardiovascular Condition Goal:Improved management of cardiovascular disease Completed patient instructed on cardiac disease process, self monitoring & symptom reporting and Cardiac Diet. Instruct and educate on knowledge deficits Problem:SN Learning Assessment Goal:Demonstrate understanding of education Completed patient verbalize and/or demonstrate understanding of nursing education completed today. Education methods include: verbal cues. Further education required to improve knowledge and compliance with cardiac disease management, depression/anxiety care management, diabetic care management, fall prevention/home safety strategies, incision/wound care management, medication management, nutrition, oxygen safety, pain management and pulmonary disease management. Maintenance COPD Description: Reinforce Acute and Sub-acute management education. Instruct on review zone sheet, nutrition in relation to COPD management, energy conservation, pacing activities, independence in ADLs vs what caregiver should be helping with, home exercise, additional COPD resources available like chronic care clinics as found in the COPD binder. Problem:SN COPD Goal:Improved management of COPD Completed Reinforced Acute and Sub-acute management education. patient reinforced on zone sheet, nutrition in relation to COPD management and energy conservation pacing activities, Romeo in ADLs vs what caregiver should be helping with and home exercise as found in the COPD binder. Sub-acute COPD Description: Reinforce Acute COPD management education. Instruct on zone sheet, methods to reduce infection risks, anxiety management including relaxation techniques, importance of sleep, stress reduction, and coping strategies for living with COPD as found in the COPD binder. Problem:SN COPD Goal:Improved management of COPD Completed Reinforced Acute COPD management education. patient reinforced on zone sheet, methods to reduce infection risks, anxiety management including: relaxation techniques, importance of sleep and stress reduction and coping strategies for living with COPD as found in the COPD binder. Acute COPD Description: Instruct on defintion of COPD, signs and symptoms of COPD exacerbation, use of zone sheet, use of MDIs, difference between rescue vs maintenance inhalers, use of nebulizer, smoking cessation, breathing management including pursed lip breathing, diaphragmatic breathing, positioning to reduce SOB, controlled coughing, use of incentive spirometer, and use of acapela as found in the COPD binder. Problem:SN COPD Goal:Improved management of COPD Completed patient reinforced on defintion of COPD, signs and symptoms of COPD exacerbation, difference between rescue vs maintenance inhalers, use of nebulizer, smoking cessation and breathing management: pursed lip breathing, diaphragmatic breathing, positioning to reduce SOB and controlled coughing as found in the COPD binder. Instruct patient/caregiver healing process and management measures to promote healing and avoid complications Problem:SN Integumentary/Wounds Goal:Patient/Caregive r will have improved healing and be free of signs and symptoms of complications Completed patient instructed on the following: healing process, signs and symptoms of infection, importance of good nutrition, importance of managing blood sugars, smoking cessation and when to report symptoms. Instruct Patient/Caregiver on wound/incision care procedure as ordered by physician Description: L gluteal abscess care daily and as needed: Cleanse area in shower or with soap/water, cover with clean dry dressing and change each day and as needed for drainage. Continue this until no drainage present on dressing. Problem:SN Integumentary/Wounds Goal:Patient/Caregive r will have improved healing and be free of signs and symptoms of complications Completed patient instructed on wound care as ordered by Physician. Wound Care: Perform wound care (2) Description: Wound Care Order: Wound location: left buttocks Wound type (etiology): abcess Order: cleanse with NS pat dry pack with idoforme packing. cover with dry dressing Frequency: 3xweek and PRN for soiled Wound care to be completed by patient except for scheduled SN wound care visits. Measure wound/incision at least weekly. Okay to substitute comparable products from home care formulary. Problem:SN Integumentary/Wounds Goal:Patient/Caregive r will have improved healing and be free of signs and symptoms of complications Completed Completed by SN. Patient did tolerate well. Wound Care: Perform wound care (4) Description: Wound Care Order: Wound location: right inner thigh Wound type (etiology): Boil Order: cleanse with mild soap and water rinse pat dry pack with idoform packing and cover with dry dressing Frequency: 3xweek Wound care to be completed by patient except for scheduled SN wound care visits. Measure wound/incision at least weekly. Okay to substitute comparable products from home care formulary. Problem:SN Integumentary/Wounds Goal:Patient/Caregive r will have improved healing and be free of signs and symptoms of complications Completed Completed by SN. Patient did tolerate well. Continued need for Home Care Services Description: POC and certification renewed due to continuing [facility] needs. Problem:Recertificati on Goal:Ongoing review of POC and need for skilled services Completed documented in this encounter [facility]'s home Plan of care note* Visit Details Visit Type -SN ROUTINE Discipline -Half-Way Problems Problem Description Start Date Status Goals Interve ntions Medication Education Disciplines: Skilled Services 08/20/2022 Active 1 goal linked to scheduled/document ed intervention 1 goal intervention scheduled/documente d in this visit Sepsis Disciplines: Skilled Services 08/20/2022 Active 1 goal linked to scheduled/document ed intervention 1 goal intervention scheduled/documente d in this visit Physician Specific Parameters Disciplines: Skilled Services 08/20/2022 Active 1 goal linked to scheduled/document ed intervention 1 goal intervention scheduled/documente d in this visit Risk for Falls Disciplines: Skilled Services 08/20/2022 Active 1 goal linked to scheduled/document ed intervention 1 goal intervention scheduled/documente d in this visit Pain Disciplines: Skilled Services 08/20/2022 Active 1 goal linked to scheduled/document ed intervention 1 goal intervention scheduled/documente d in this visit Diabetic Foot Care Disciplines: Skilled Services 08/20/2022 Active 1 goal linked to scheduled/document ed intervention 1 goal intervention scheduled/documente d in this visit High Risk Medications Disciplines: Skilled Services 08/20/2022 Active 1 goal linked to scheduled/document ed intervention 3 goal interventions scheduled/documente d in this visit SN Edema Disciplines: SN 08/20/2022 Active 1 goal linked to scheduled/document ed intervention 1 goal intervention scheduled/documente d in this visit SN Diabetes Disciplines: SN 08/20/2022 Active 1 goal linked to scheduled/document ed intervention 1 goal intervention scheduled/documente d in this visit SN Learning Assessment Disciplines: 08/20/2022 Active 1 goal linked to scheduled/document ed intervention 1 goal intervention scheduled/documente d in this visit SN COPD Disciplines: SN 09/22/2022 Active 1 goal linked to scheduled/document ed intervention 1 goal intervention scheduled/documente d in this visit SN Integumentary/W ounds Disciplines: SN 11/09/2022 Active 1 goal linked to scheduled/document ed intervention 1 goal intervention scheduled/documente d in this visit SN Integumentary/W ounds Disciplines: 11/11/2022 Active 1 goal linked to scheduled/document ed intervention 1 goal intervention scheduled/documente d in this visit Goals Goal Associated Problem Outcome Goal Met? Visit Notes Patient/caregiver will demonstrate ability to obtain, store, identify and administer ordered medications, keep accurate medication list in home, and adhere to medication schedule Description: Patient/caregiver will demonstrate ability to obtain, store, identify and administer ordered medications, keep accurate medication list in home, and adhere to medication schedule by 02-15-23. Medication Education In Progress No Patient/caregiver will be able to identify and report symptoms of sepsis Description: Patient/caregiver will be able to identify signs/symptoms of sepsis infection and will verbalize actions to take if suspected by 02-15-23. Sepsis In Progress No Patient to maintain parameters within physician-specified ranges throughout certification period Physician Specific Parameters In Progress No Manage Risk for falls Description: Patient/caregiver will verbalize knowledge of individualized fall prevention strategies by 02-15-23. Risk for Falls In Progress No Manage Pain Description: Patient/caregiver will verbalize knowledge and understanding of appropriate techniques to control pain, including pain medication and non-pharmacological techniques. Patient will verbalize or demonstrate an acceptable level of pain as evidenced by a pain score of 0-3/10 and improvement in ability to perform activities of daily living to be achieved by 02-15-23. Pain In Progress No Manage diabetic foot care Description: Patient/caregiver will demonstrate basic understanding of and compliance with diabetic self-care management as evidenced by verbalizing purpose of daily foot care and assessment by 02-15-23. Diabetic Foot Care In Progress No Patient/caregiver will teach back high risk medication side effect and precaution education High Risk Medications In Progress No Patient will have improved edema management Description: Patient/caregiver will demonstrate an understanding of edema management strategies as evidenced by resolution or stabilization of edema by 02-15-23. SN Edema In Progress No Improved management of diabetes Description: Improve diabetic management as evidenced by patient/caregiver able to teach back diabetic management strategies by 02-15-23. SN Diabetes In Progress No Demonstrate understanding of education Description: Patient and/or caregiver will verbalize understanding of educational instruction provided throughout certification period. SN Learning Assessment In Progress No Improved management of COPD Description: Improve COPD management as evidenced by decreased reports of dyspnea, medication compliance, and patient able to teach back strategies to manage condition. Goal to be achieved by 02-15-23 SN COPD In Progress No Patient/Caregiver will have improved healing and be free of signs and symptoms of complications Description: Patient/caregiver will verbalize management strategies to promote wound healing & prevent complications as evidenced by improved healing & no complications by 02-15-23. SN Integumentary/Wounds In Progress No Patient/Caregiver will have improved healing and be free of signs and symptoms of complications Description: Patient/caregiver will verbalize management strategies to promote wound healing & prevent complications as evidenced by improved healing & no complications by 02-15-23. SN Integumentary/Wounds No Interventions Intervention Associated Problem/Goal Status Variance Visit Notes Medication Education Description: Evaluate/instruct patient/caregiver on obtaining, storing, identifying and administering ordered medications as well as keeping accurate medication list in the home and adhereing to medication schedule Problem:Medication Education Goal:Patient/caregive r will demonstrate ability to obtain, store, identify and administer ordered medications, keep accurate medication list in home, and adhere to medication schedule Completed Patient instructed on adhering to medication schedule. Risk of Sepsis Description: Patient is at risk for sepsis. Monitor closely for s/s of sepsis. Problem:Sepsis Goal:Patient/caregive r will be able to identify and report symptoms of sepsis Completed SPO2 Description: Notify if pulse ox is <92% at rest. Problem:Physician Specific Parameters Goal:Patient to maintain parameters within physician-specified ranges throughout certification period Completed Instruct on individual fall risk factors and strategies to prevent falls and injuries caused by falls. Problem:Risk for Falls Goal:Manage Risk for falls Completed SN: Patient instructed on Managing Impaired Functional Mobility: Use assistive device(s): single point cane Instruct on pain and instruct on strategies to control pain Problem:Pain Goal:Manage Pain Completed patient instructed on techniques to control pain including Non-Pharmacological measures; positioning/elevation . Monitor lower extremities for skin lesions and educate on proper foot care Problem:Diabetic Foot Care Goal:Manage diabetic foot care Completed patient instructed on diabetic foot care including daily skin inspection and wearing proper footwear/avoiding going barefoot. Hypoglycemic (including insulin)- educated on high risk medication Problem:High Risk Medications Goal:Patient/caregive r will teach back high risk medication side effect and precaution education Completed patient educated on taking medication(s) as prescribed by provider. Do not stop medication or skip/alter doses without speaking with your provider. Discuss medication effectiveness or side effect concerns with your provider and home care team. Check blood sugars and keep log as ordered by provider. Monitor for side effects of hypoglycemia such as increased weakness or shaking, moist skin, sweating, fast heartbeat, dizziness, sudden hunger, confusion, pale skin, numbness in mouth or tongue, irritability, nervousness, unsteadiness, nightmares, bad dreams, and restless sleep. Checking your blood sugar routinely and eating a consistent diabetic diet can help regulate blood sugars and reduce side effects. Antiplatelet- educated on high risk medication Problem:High Risk Medications Goal:Patient/caregive r will teach back high risk medication side effect and precaution education Completed patient educated on taking medication(s) as prescribed by provider. Do not stop medication or alter doses without speaking with your provider. Discuss medication effectiveness or side effect concerns with your provider and home care team. Discuss all medications you are taking, even [id number] medicines, with your provider and pharmacist since many drugs can interact with antiplatelet medications. If you forget to take a dose, DO NOT take a double dose. Take the missed dose as soon as possible on the same day. DO NOT take a double dose the next day to make up for the missed dose. Watch for signs of abnormal or excessive bleeding and bruising (refer to Bleeding Precautions education). Call your health care provider right away if you suspect something is wrong. Antibiotic- educated on high risk medication Problem:High Risk Medications Goal:Patient/caregive r will teach back high risk medication side effect and precaution education Completed patient educated on taking medication(s) as prescribed by provider. Do not stop medication or alter doses without speaking with your provider. Discuss medication effectiveness or side effect concerns with your provider and home care team. Take the full dispensed amount even if you start feeling better, as bacteria can become resistant to antibiotic treatment if you do not finish your prescription. Common side effects are upset stomach and diarrhea. Take your antibiotics with food unless otherwise indicated to help with indigestion. Taking an [id number] probiotic or eating yogurt with live and active cultures three times a day can help prevent antibiotic-associated diarrhea. Call your provider immediately if you develop rashes or hives as this could be a delayed allergic reaction. Seek emergency treatment if you develop severe allergic reaction symptoms such as mouth or tongue swelling. Assess and instruct on measures to reduce edema Problem:SN Edema Goal:Patient will have improved edema management Completed patient instructed on elevation and compression. Instruct on diabetes disease process and management of chronic condition Description: Patient has needs for education of diabetes. Problem:SN Diabetes Goal:Improved management of diabetes Completed patient assessed and reinforced on how food and insulin affect blood sugar as found in the diabetes self-care booklets. Instruct and educate on knowledge deficits Problem:SN Learning Assessment Goal:Demonstrate understanding of education Completed patient verbalize and/or demonstrate understanding of nursing education completed today. Education methods include: verbal cues. Further education required to improve knowledge and compliance with diabetic care management, fall prevention/home safety strategies, hematological care management, incision/wound care management, integumentary care management, medication management, pain management and pulmonary disease management. Maintenance COPD Description: Reinforce Acute and Sub-acute management education. Instruct on review zone sheet, nutrition in relation to COPD management, energy conservation, pacing activities, independence in ADLs vs what caregiver should be helping with, home exercise, additional COPD resources available like chronic care clinics as found in the COPD binder. Problem:SN COPD Goal:Improved management of COPD Completed Reinforced Acute and Sub-acute management education. patient reinforced on energy conservation pacing activities as found in the COPD binder. Instruct patient/caregiver healing process and management measures to promote healing and avoid complications Problem:SN Integumentary/Wounds Goal:Patient/Caregive r will have improved healing and be free of signs and symptoms of complications Completed patient instructed on the following: healing process. Wound Care: Perform wound care (2) Description: Wound Care Order: Wound location: left buttocks Wound type (etiology): abcess Order: cleanse with NS pat dry pack with idoforme packing. cover with dry dressing Frequency: 3xweek and PRN for soiled Wound care to be completed by patient except for scheduled SN wound care visits. Measure wound/incision at least weekly. Okay to substitute comparable products from home care formulary. Problem:SN Integumentary/Wounds Goal:Patient/Caregive r will have improved healing and be free of signs and symptoms of complications Completed Completed by SN. Patient did tolerate well. documented in this encounter [facility]'s home Plan of care note* Visit Details Visit Type -SN ROUTINE Discipline -Half-Way Problems Problem Description Start Date Status Goals Interve ntions Medication Education Disciplines: Skilled Services 08/20/2022 Active 1 goal linked to scheduled/documen pawan intervention 1 goal intervention scheduled/document ed in this visit Sepsis Disciplines: Skilled Services 08/20/2022 Active 1 goal linked to scheduled/documen pawan intervention 1 goal intervention scheduled/document ed in this visit Physician Specific Parameters Disciplines: Skilled Services 08/20/2022 Active 1 goal linked to scheduled/documen pawan intervention 1 goal intervention scheduled/document ed in this visit Risk for Falls Disciplines: Skilled Services 08/20/2022 Active 1 goal linked to scheduled/documen pawan intervention 1 goal intervention scheduled/document ed in this visit Pain Disciplines: Skilled Services 08/20/2022 Active 1 goal linked to scheduled/documen pawan intervention 1 goal intervention scheduled/document ed in this visit Diabetic Foot Care Disciplines: Skilled Services 08/20/2022 Active 1 goal linked to scheduled/documen pawan intervention 1 goal intervention scheduled/document ed in this visit High Risk Medications Disciplines: Skilled Services 08/20/2022 Active 1 goal linked to scheduled/documen pawan intervention 3 goal interventions scheduled/document ed in this visit SN Edema Disciplines: SN 08/20/2022 Active 1 goal linked to scheduled/documen pawan intervention 1 goal intervention scheduled/document ed in this visit SN Diabetes Disciplines: SN 08/20/2022 Active 1 goal linked to scheduled/documen pawan intervention 1 goal intervention scheduled/document ed in this visit SN Cardiovascular Condition Disciplines: SN 08/20/2022 Active 1 goal linked to scheduled/documen pawan intervention 1 goal intervention scheduled/document ed in this visit SN Learning Assessment Disciplines: SN 08/20/2022 Active 1 goal linked to scheduled/documen pawan intervention 1 goal intervention scheduled/document ed in this visit SN COPD Disciplines: SN 09/22/2022 Active 1 goal linked to scheduled/documen pawan intervention 1 goal intervention scheduled/document ed in this visit SN Integumentary/Wound s Disciplines: SN 11/09/2022 Active 1 goal linked to scheduled/documen pawan intervention 1 goal intervention scheduled/document ed in this visit SN Integumentary/Wound s Disciplines: SN 11/11/2022 Active 1 goal linked to scheduled/documen pawan intervention 1 goal intervention scheduled/document ed in this visit Goals Goal Associated Problem Outcome Goal Met? Visit Notes Patient/caregiver will demonstrate ability to obtain, store, identify and administer ordered medications, keep accurate medication list in home, and adhere to medication schedule Description: Patient/caregiver will demonstrate ability to obtain, store, identify and administer ordered medications, keep accurate medication list in home, and adhere to medication schedule by 02-15-23. Medication Education No Patient/caregiver will be able to identify and report symptoms of sepsis Description: Patient/caregiver will be able to identify signs/symptoms of sepsis infection and will verbalize actions to take if suspected by 02-15-23. Sepsis No Patient to maintain parameters within physician-specified ranges throughout certification period Physician Specific Parameters No Manage Risk for falls Description: Patient/caregiver will verbalize knowledge of individualized fall prevention strategies by 02-15-23. Risk for Falls No Manage Pain Description: Patient/caregiver will verbalize knowledge and understanding of appropriate techniques to control pain, including pain medication and non-pharmacological techniques. Patient will verbalize or demonstrate an acceptable level of pain as evidenced by a pain score of 0-3/10 and improvement in ability to perform activities of daily living to be achieved by 02-15-23. Pain No Manage diabetic foot care Description: Patient/caregiver will demonstrate basic understanding of and compliance with diabetic self-care management as evidenced by verbalizing purpose of daily foot care and assessment by 02-15-23. Diabetic Foot Care No Patient/caregiver will teach back high risk medication side effect and precaution education High Risk Medications No Patient will have improved edema management Description: Patient/caregiver will demonstrate an understanding of edema management strategies as evidenced by resolution or stabilization of edema by 02-15-23. SN Edema No Improved management of diabetes Description: Improve diabetic management as evidenced by patient/caregiver able to teach back diabetic management strategies by 02-15-23. SN Diabetes No Improved management of cardiovascular disease Description: Improve patient/caregiver management of cardiac disease as evidenced by patient/caregiver ability to teach back cardiac management strategies by 02-15-23. SN Cardiovascular Condition No Demonstrate understanding of education Description: Patient and/or caregiver will verbalize understanding of educational instruction provided throughout certification period. SN Learning Assessment No Improved management of COPD Description: Improve COPD management as evidenced by decreased reports of dyspnea, medication compliance, and patient able to teach back strategies to manage condition. Goal to be achieved by 02-15-23 SN COPD No Patient/Caregiver will have improved healing and be free of signs and symptoms of complications Description: Patient/caregiver will verbalize management strategies to promote wound healing & prevent complications as evidenced by improved healing & no complications by 02-15-23. SN Integumentary/Wounds No Patient/Caregiver will have improved healing and be free of signs and symptoms of complications Description: Patient/caregiver will verbalize management strategies to promote wound healing & prevent complications as evidenced by improved healing & no complications by 02-15-23. SN Integumentary/Wounds No Interventions Intervention Associated Problem/Goal Status Variance Visit Notes Medication Education Description: Evaluate/instruct patient/caregiver on obtaining, storing, identifying and administering ordered medications as well as keeping accurate medication list in the home and adhereing to medication schedule Problem:Medication Education Goal:Patient/caregiver will demonstrate ability to obtain, store, identify and administer ordered medications, keep accurate medication list in home, and adhere to medication schedule Completed Patient instructed on adhering to medication schedule. Risk of Sepsis Description: Patient is at risk for sepsis. Monitor closely for s/s of sepsis. Problem:Sepsis Goal:Patient/caregiver will be able to identify and report symptoms of sepsis Completed SPO2 Description: Notify DrLeon if pulse ox is <92% at rest. Problem:Physician Specific Parameters Goal:Patient to maintain parameters within physician-specified ranges throughout certification period Completed Instruct on individual fall risk factors and strategies to prevent falls and injuries caused by falls. Problem:Risk for Falls Goal:Manage Risk for falls Completed SN: Patient instructed on Eliminating Environmental Hazards: Keep pathways clear Instruct on pain and instruct on strategies to control pain Problem:Pain Goal:Manage Pain Completed patient instructed on techniques to control pain including Non-Pharmacological measures; positioning/elevatio n. Monitor lower extremities for skin lesions and educate on proper foot care Problem:Diabetic Foot Care Goal:Manage diabetic foot care Completed patient instructed on diabetic foot care including daily skin inspection and wearing proper footwear/avoiding going barefoot. Hypoglycemic (including insulin)- educated on high risk medication Problem:High Risk Medications Goal:Patient/caregiver will teach back high risk medication side effect and precaution education Completed patient educated on taking medication(s) as prescribed by provider. Do not stop medication or skip/alter doses without speaking with your provider. Discuss medication effectiveness or side effect concerns with your provider and home care team. Check blood sugars and keep log as ordered by provider. Monitor for side effects of hypoglycemia such as increased weakness or shaking, moist skin, sweating, fast heartbeat, dizziness, sudden hunger, confusion, pale skin, numbness in mouth or tongue, irritability, nervousness, unsteadiness, nightmares, bad dreams, and restless sleep. Checking your blood sugar routinely and eating a consistent diabetic diet can help regulate blood sugars and reduce side effects. Antiplatelet- educated on high risk medication Problem:High Risk Medications Goal:Patient/caregiver will teach back high risk medication side effect and precaution education Completed patient educated on taking medication(s) as prescribed by provider. Do not stop medication or alter doses without speaking with your provider. Discuss medication effectiveness or side effect concerns with your provider and home care team. Discuss all medications you are taking, even osuz-qpl-oacalcc medicines, with your provider and pharmacist since many drugs can interact with antiplatelet medications. If you forget to take a dose, DO NOT take a double dose. Take the missed dose as soon as possible on the same day. DO NOT take a double dose the next day to make up for the missed dose. Watch for signs of abnormal or excessive bleeding and bruising (refer to Bleeding Precautions education). Call your health care provider right away if you suspect something is wrong. Antibiotic- educated on high risk medication Problem:High Risk Medications Goal:Patient/caregiver will teach back high risk medication side effect and precaution education Completed patient educated on taking medication(s) as prescribed by provider. Do not stop medication or alter doses without speaking with your provider. Discuss medication effectiveness or side effect concerns with your provider and home care team. Take the full dispensed amount even if you start feeling better, as bacteria can become resistant to antibiotic treatment if you do not finish your prescription. Common side effects are upset stomach and diarrhea. Take your antibiotics with food unless otherwise indicated to help with indigestion. Taking an ikuz-dqf-ngdiouo probiotic or eating yogurt with live and active cultures three times a day can help prevent antibiotic-associate d diarrhea. Call your provider immediately if you develop rashes or hives as this could be a delayed allergic reaction. Seek emergency treatment if you develop severe allergic reaction symptoms such as mouth or tongue swelling. Assess and instruct on measures to reduce edema Problem:SN Edema Goal:Patient will have improved edema management Completed patient instructed on elevation and compression. Instruct on diabetes disease process and management of chronic condition Description: Patient has needs for education of diabetes. Problem:SN Diabetes Goal:Improved management of diabetes Completed patient assessed and reinforced on diet education as found in the diabetes self-care booklets. Instruct on cardiovascular disease process and management of condition Description: Patient has following cardiac diagnosis(es): CAD. Problem:SN Cardiovascular Condition Goal:Improved management of cardiovascular disease Completed patient instructed on self monitoring & symptom reporting. Instruct and educate on knowledge deficits Problem:SN Learning Assessment Goal:Demonstrate understanding of education Completed patient verbalize and/or demonstrate understanding of nursing education completed today. Education methods include: verbal cues. Further education required to improve knowledge and compliance with cardiac disease management, diabetic care management, fall prevention/home safety strategies, incision/wound care management, integumentary care management, medication management, nutrition, pain management and pulmonary disease management. Maintenance COPD Description: Reinforce Acute and Sub-acute management education. Instruct on review zone sheet, nutrition in relation to COPD management, energy conservation, pacing activities, independence in ADLs vs what caregiver should be helping with, home exercise, additional COPD resources available like chronic care clinics as found in the COPD binder. Problem:SN COPD Goal:Improved management of COPD Completed Reinforced Acute and Sub-acute management education. patient reinforced on energy conservation pacing activities as found in the COPD binder. Instruct patient/caregiver healing process and management measures to promote healing and avoid complications Problem:SN Integumentary/Wounds Goal:Patient/Caregiver will have improved healing and be free of signs and symptoms of complications Completed patient instructed on the following: healing process. Wound Care: Perform wound care (2) Description: Wound Care Order: Wound location: left buttocks Wound type (etiology): abcess Order: cleanse with NS pat dry pack with idoforme packing. cover with dry dressing Frequency: 3xweek and PRN for soiled Wound care to be completed by patient except for scheduled SN wound care visits. Measure wound/incision at least weekly. Okay to substitute comparable products from home care formulary. Problem:SN Integumentary/Wounds Goal:Patient/Caregiver will have improved healing and be free of signs and symptoms of complications Completed Completed by SN. Patient did tolerate well. [facility] Visit Details Visit Type -SN ROUTINE Discipline -Half-Way Problems Problem Description Start Date Status Goals Interve ntions Medication Education Disciplines: Skilled Services 08/20/2022 Active 1 goal linked to scheduled/documen pawan intervention 1 goal intervention scheduled/document ed in this visit Sepsis Disciplines: Skilled Services 08/20/2022 Active 1 goal linked to scheduled/documen pawan intervention 1 goal intervention scheduled/document ed in this visit Physician Specific Parameters Disciplines: Skilled Services 08/20/2022 Active 1 goal linked to scheduled/documen pawan intervention 1 goal intervention scheduled/document ed in this visit Risk for Falls Disciplines: Skilled Services 08/20/2022 Active 1 goal linked to scheduled/documen pawan intervention 1 goal intervention scheduled/document ed in this visit Pain Disciplines: Skilled Services 08/20/2022 Active 1 goal linked to scheduled/documen pawan intervention 1 goal intervention scheduled/document ed in this visit Diabetic Foot Care Disciplines: Skilled Services 08/20/2022 Active 1 goal linked to scheduled/documen pawan intervention 1 goal intervention scheduled/document ed in this visit Oxygen Disciplines: Skilled Services 08/20/2022 Active 1 goal linked to scheduled/documen pawan intervention 1 goal intervention scheduled/document ed in this visit High Risk Medications Disciplines: Skilled Services 08/20/2022 Active 1 goal linked to scheduled/documen pawan intervention 4 goal interventions scheduled/document ed in this visit Discharge Disciplines: Skilled Services 08/20/2022 Active 1 goal linked to scheduled/documen pawan intervention 1 goal intervention scheduled/document ed in this visit SN Edema Disciplines: SN 08/20/2022 Active 1 goal linked to scheduled/documen pawan intervention 1 goal intervention scheduled/document ed in this visit SN Diabetes Disciplines: SN 08/20/2022 Active 1 goal linked to scheduled/documen pawan intervention 1 goal intervention scheduled/document ed in this visit SN Cardiovascular Condition Disciplines: SN 08/20/2022 Active 1 goal linked to scheduled/documen pawan intervention 1 goal intervention scheduled/document ed in this visit SN Learning Assessment Disciplines: SN 08/20/2022 Active 1 goal linked to scheduled/documen pawan intervention 1 goal intervention scheduled/document ed in this visit SN COPD Disciplines: SN 09/22/2022 Active 1 goal linked to scheduled/documen pawan intervention 3 goal interventions scheduled/document ed in this visit SN Integumentary/Wound s Disciplines: SN 11/09/2022 Active 1 goal linked to scheduled/documen pawan intervention 2 goal interventions scheduled/document ed in this visit SN Integumentary/Wound s Disciplines: SN 11/11/2022 Active 1 goal linked to scheduled/documen pawan intervention 1 goal intervention scheduled/document ed in this visit SN Integumentary/Wound s Disciplines: SN 11/27/2022 Active 1 goal linked to scheduled/documen pawan intervention 1 goal intervention scheduled/document ed in this visit Recertification Disciplines: Skilled Services 12/17/2022 Active 1 goal linked to scheduled/documen pawan intervention 1 goal intervention scheduled/document ed in this visit SN Integumentary/Wound s Disciplines: SN 01/14/2023 Active 1 goal linked to scheduled/documen pawan intervention 1 goal intervention scheduled/document ed in this visit Goals Goal Associated Problem Outcome Goal Met? Visit Notes Patient/caregiver will demonstrate ability to obtain, store, identify and administer ordered medications, keep accurate medication list in home, and adhere to medication schedule Description: Patient/caregiver will demonstrate ability to obtain, store, identify and administer ordered medications, keep accurate medication list in home, and adhere to medication schedule by 02-15-23. Medication Education No Patient/caregiver will be able to identify and report symptoms of sepsis Description: Patient/caregiver will be able to identify signs/symptoms of sepsis infection and will verbalize actions to take if suspected by 02-15-23. Sepsis No Patient to maintain parameters within physician-specified ranges throughout certification period Physician Specific Parameters No Manage Risk for falls Description: Patient/caregiver will verbalize knowledge of individualized fall prevention strategies by 02-15-23. Risk for Falls No Manage Pain Description: Patient/caregiver will verbalize knowledge and understanding of appropriate techniques to control pain, including pain medication and non-pharmacological techniques. Patient will verbalize or demonstrate an acceptable level of pain as evidenced by a pain score of 0-3/10 and improvement in ability to perform activities of daily living to be achieved by 02-15-23. Pain No Manage diabetic foot care Description: Patient/caregiver will demonstrate basic understanding of and compliance with diabetic self-care management as evidenced by verbalizing purpose of daily foot care and assessment by 02-15-23. Diabetic Foot Care No Manage oxygen Description: Patient/caregiver will use oxygen safely and effectively in home by verbalizing and demonstrating oxygen safety by 02-15-23. Oxygen No Patient/caregiver will teach back high risk medication side effect and precaution education High Risk Medications No Manage discharge planning Description: Patient/caregiver will verbalize understanding of ongoing discharge plan provided related to disease management, arrangements for outpatient and/or community services, obtaining medications, supplies, and DME, as needed throughout certification period. Discharge No Patient will have improved edema management Description: Patient/caregiver will demonstrate an understanding of edema management strategies as evidenced by resolution or stabilization of edema by 02-15-23. SN Edema No Improved management of diabetes Description: Improve diabetic management as evidenced by patient/caregiver able to teach back diabetic management strategies by 02-15-23. SN Diabetes No Improved management of cardiovascular disease Description: Improve patient/caregiver management of cardiac disease as evidenced by patient/caregiver ability to teach back cardiac management strategies by 02-15-23. SN Cardiovascular Condition No Demonstrate understanding of education Description: Patient and/or caregiver will verbalize understanding of educational instruction provided throughout certification period. SN Learning Assessment No Improved management of COPD Description: Improve COPD management as evidenced by decreased reports of dyspnea, medication compliance, and patient able to teach back strategies to manage condition. Goal to be achieved by 02-15-23 SN COPD No Patient/Caregiver will have improved healing and be free of signs and symptoms of complications Description: Patient/caregiver will verbalize management strategies to promote wound healing & prevent complications as evidenced by improved healing & no complications by 02-15-23. SN Integumentary/Wounds No Patient/Caregiver will have improved healing and be free of signs and symptoms of complications Description: Patient/caregiver will verbalize management strategies to promote wound healing & prevent complications as evidenced by improved healing & no complications by 02-15-23. SN Integumentary/Wounds No Patient/Caregiver will have improved healing and be free of signs and symptoms of complications Description: Patient/caregiver will verbalize management strategies to promote wound healing & prevent complications as evidenced by improved healing & no complications by 02-15-23. SN Integumentary/Wounds No Ongoing review of POC and need for skilled services Recertification No Patient/Caregiver will have improved healing and be free of signs and symptoms of complications Description: Patient/caregiver will verbalize management strategies to promote wound healing & prevent complications as evidenced by improved healing & no complications by 02-15-23. SN Integumentary/Wounds No Interventions Intervention Associated Problem/Goal Status Variance Visit Notes Medication Education Description: Evaluate/instruct patient/caregiver on obtaining, storing, identifying and administering ordered medications as well as keeping accurate medication list in the home and adhereing to medication schedule Problem:Medication Education Goal:Patient/caregive r will demonstrate ability to obtain, store, identify and administer ordered medications, keep accurate medication list in home, and adhere to medication schedule Completed Patient instructed on importance of keeping accurate medication list in home, adhering to medication schedule, proper storage of medications, Medication, route, dose, frequency, purpose, and side effects of medications and disposing of old and out of date medications. Risk of Sepsis Description: Patient is at risk for sepsis. Monitor closely for s/s of sepsis. Problem:Sepsis Goal:Patient/caregive r will be able to identify and report symptoms of sepsis Completed SPO2 Description: Notify if pulse ox is <92% at rest. Problem:Physician Specific Parameters Goal:Patient to maintain parameters within physician-specified ranges throughout certification period Completed Instruct on individual fall risk factors and strategies to prevent falls and injuries caused by falls. Problem:Risk for Falls Goal:Manage Risk for falls Completed SN: Patient instructed on Eliminating Environmental Hazards: Keep pathways clear, Keep pets out of pathways, Keep rooms and walkways well lit, Wear supportive shoes or non-skid socks and Keep frequently used items within reach Instruct on pain and instruct on strategies to control pain Problem:Pain Goal:Manage Pain Completed patient instructed on techniques to control pain including Pharmacological measures and Non-Pharmacological measures; rest, positioning/elevation, mobility/therapeutic exercise, distraction and breathing/relaxation. Monitor lower extremities for skin lesions and educate on proper foot care Problem:Diabetic Foot Care Goal:Manage diabetic foot care Completed patient instructed on diabetic foot care including daily skin inspection, wearing proper footwear/avoiding going barefoot, wash/dry feet thoroughly, applying moisturizer, avoiding between toes and toenail care. Instruct on fire safety and safe and effective use of oxygen in the home Problem:Oxygen Goal:Manage oxygen Completed patient and caregiver instructed on: findings of safety risk assessment, causes of fires, firerisks for neighboring residences and buildings, precautions that can prevent fire-related injuries, oxygen safety as outlined in Home Care Patient Handbook and recommendations for specific safety risks identified in the home: maintenance of working smoke detectors and changing batteries, establishment of fire escape plan, telephone accessibility and implementation of no-smoking policy in home, including e-cigarettes and posting of No-Smoking signs on entrance doors patient and caregiver demonstrate compliance with safety recommendations. Opioids- educated on high risk medication Problem:High Risk Medications Goal:Patient/caregive r will teach back high risk medication side effect and precaution education Completed patient educated on taking medication(s) as prescribed by provider. Do not stop medication or alter doses without speaking with your provider. Discuss medication effectiveness or side effect concerns with your provider and home care team. Only take opioids as prescribed, do not share your medications, and take proper precautions in storing and properly disposing of opioids once no longer needed. Possible side effects of opioid medication including sedation, decreased rate of breathing, and constipation. Report over sedation to prescribing provider and practice deep breathing techniques every hour while awake. Prevent constipation by increasing water and fiber intake, increasing activity as tolerated, and use stool softener(s) as prescribed. Hypoglycemic (including insulin)- educated on high risk medication Problem:High Risk Medications Goal:Patient/caregive r will teach back high risk medication side effect and precaution education Completed patient educated on taking medication(s) as prescribed by provider. Do not stop medication or skip/alter doses without speaking with your provider. Discuss medication effectiveness or side effect concerns with your provider and home care team. Check blood sugars and keep log as ordered by provider. Monitor for side effects of hypoglycemia such as increased weakness or shaking, moist skin, sweating, fast heartbeat, dizziness, sudden hunger, confusion, pale skin, numbness in mouth or tongue, irritability, nervousness, unsteadiness, nightmares, bad dreams, and restless sleep. Checking your blood sugar routinely and eating a consistent diabetic diet can help regulate blood sugars and reduce side effects. Antiplatelet- educated on high risk medication Problem:High Risk Medications Goal:Patient/caregive r will teach back high risk medication side effect and precaution education Completed patient educated on taking medication(s) as prescribed by provider. Do not stop medication or alter doses without speaking with your provider. Discuss medication effectiveness or side effect concerns with your provider and home care team. Discuss all medications you are taking, even pqhs-fqt-asbgdzn medicines, with your provider and pharmacist since many drugs can interact with antiplatelet medications. If you forget to take a dose, DO NOT take a double dose. Take the missed dose as soon as possible on the same day. DO NOT take a double dose the next day to make up for the missed dose. Watch for signs of abnormal or excessive bleeding and bruising (refer to Bleeding Precautions education). Call your health care provider right away if you suspect something is wrong. Antibiotic- educated on high risk medication Problem:High Risk Medications Goal:Patient/caregive r will teach back high risk medication side effect and precaution education Completed patient educated on taking medication(s) as prescribed by provider. Do not stop medication or alter doses without speaking with your provider. Discuss medication effectiveness or side effect concerns with your provider and home care team. Take the full dispensed amount even if you start feeling better, as bacteria can become resistant to antibiotic treatment if you do not finish your prescription. Common side effects are upset stomach and diarrhea. Take your antibiotics with food unless otherwise indicated to help with indigestion. Taking an zmqv-ovl-eatqvjg probiotic or eating yogurt with live and active cultures three times a day can help prevent antibiotic-associated diarrhea. Call your provider immediately if you develop rashes or hives as this could be a delayed allergic reaction. Seek emergency treatment if you develop severe allergic reaction symptoms such as mouth or tongue swelling. Instruct on ongoing discharge plan Problem:Discharge Goal:Manage discharge planning Completed Ongoing Discharge plan: Discharge plan discussed with patient including frequency and duration for home SN and plan for transition to: caregiver assistance. Assess and instruct on measures to reduce edema Problem:SN Edema Goal:Patient will have improved edema management Completed patient instructed on elevation, compression, diet, medication compliance and benefits of activity. Instruct on diabetes disease process and management of chronic condition Description: Patient has needs for education of diabetes. Problem:SN Diabetes Goal:Improved management of diabetes Completed patient assessed and reinforced on diabetes disease process, diet education, how to carb count and recogonizing s/s of hypoglycemia and hyperglycemia as found in the diabetes self-care booklets. Instruct on cardiovascular disease process and management of condition Description: Patient has following cardiac diagnosis(es): CAD. Problem:SN Cardiovascular Condition Goal:Improved management of cardiovascular disease Completed patient instructed on cardiac disease process, self monitoring & symptom reporting and Cardiac Diet. Instruct and educate on knowledge deficits Problem:SN Learning Assessment Goal:Demonstrate understanding of education Completed patient verbalize and/or demonstrate understanding of nursing education completed today. Education methods include: verbal cues and teach back. Further education required to improve knowledge and compliance with diabetic care management, fall prevention/home safety strategies, incision/wound care management, pain management and pulmonary disease management. Maintenance COPD Description: Reinforce Acute and Sub-acute management education. Instruct on review zone sheet, nutrition in relation to COPD management, energy conservation, pacing activities, independence in ADLs vs what caregiver should be helping with, home exercise, additional COPD resources available like chronic care clinics as found in the COPD binder. Problem:SN COPD Goal:Improved management of COPD Completed Reinforced Acute and Sub-acute management education. patient reinforced on zone sheet, nutrition in relation to COPD management and energy conservation pacing activities and Romeo in ADLs vs what caregiver should be helping with as found in the COPD binder. Sub-acute COPD Description: Reinforce Acute COPD management education. Instruct on zone sheet, methods to reduce infection risks, anxiety management including relaxation techniques, importance of sleep, stress reduction, and coping strategies for living with COPD as found in the COPD binder. Problem:SN COPD Goal:Improved management of COPD Completed Reinforced Acute COPD management education. patient reinforced on zone sheet, methods to reduce infection risks, anxiety management including: relaxation techniques, importance of sleep and stress reduction and coping strategies for living with COPD as found in the COPD binder. Acute COPD Description: Instruct on defintion of COPD, signs and symptoms of COPD exacerbation, use of zone sheet, use of MDIs, difference between rescue vs maintenance inhalers, use of nebulizer, smoking cessation, breathing management including pursed lip breathing, diaphragmatic breathing, positioning to reduce SOB, controlled coughing, use of incentive spirometer, and use of acapela as found in the COPD binder. Problem:SN COPD Goal:Improved management of COPD Completed patient reinforced on defintion of COPD, signs and symptoms of COPD exacerbation, smoking cessation and breathing management: pursed lip breathing, diaphragmatic breathing, positioning to reduce SOB and controlled coughing as found in the COPD binder. Instruct patient/caregiver healing process and management measures to promote healing and avoid complications Problem:SN Integumentary/Wounds Goal:Patient/Caregive r will have improved healing and be free of signs and symptoms of complications Completed patient instructed on the following: healing process, signs and symptoms of infection, importance of good nutrition, importance of managing blood sugars, smoking cessation and when to report symptoms. Instruct Patient/Caregiver on wound/incision care procedure as ordered by physician Description: L gluteal abscess care daily and as needed: Cleanse area in shower or with soap/water, cover with clean dry dressing and change each day and as needed for drainage. Continue this until no drainage present on dressing. Problem:SN Integumentary/Wounds Goal:Patient/Caregive r will have improved healing and be free of signs and symptoms of complications Completed patient instructed on and return demonstrated wound care as ordered by Physician. Wound Care: Perform wound care (2) Description: Wound Care Order: Wound location: left buttocks Wound type (etiology): abcess Order: cleanse with NS pat dry pack with idoforme packing. cover with dry dressing Frequency: 3xweek and PRN for soiled Wound care to be completed by patient except for scheduled SN wound care visits. Measure wound/incision at least weekly. Okay to substitute comparable products from home care formulary. Problem:SN Integumentary/Wounds Goal:Patient/Caregive r will have improved healing and be free of signs and symptoms of complications Completed Completed by SN. Patient did tolerate well. Wound Care: Perform wound care (4) Description: Wound Care Order: Wound location: right inner thigh Wound type (etiology): Boil Order: cleanse with mild soap and water rinse pat dry pack with idoform packing and cover with dry dressing Frequency: 3xweek Wound care to be completed by patient except for scheduled SN wound care visits. Measure wound/incision at least weekly. Okay to substitute comparable products from home care formulary. Problem:SN Integumentary/Wounds Goal:Patient/Caregive r will have improved healing and be free of signs and symptoms of complications Completed Completed by SN. Patient did tolerate well. Continued need for Home Care Services Description: POC and certification renewed due to continuing [facility] needs. Problem:Recertificati on Goal:Ongoing review of POC and need for skilled services Completed Wound Care: Perform wound care (5) Description: Wound Care Order: Wound location: left inner upper thigh Wound type (etiology): Boil Order: Cleanse with mild soap and water or chlorihexadine rinse pat dry pack wound with calcium alginate siver rope, cover with dry clean dressing. Frequency: 3x week and as needed for soiled Wound care to be completed by patient except for scheduled SN wound care visits. Measure wound/incision at least weekly. Okay to substitute comparable products from home care formulary. Problem:SN Integumentary/Wounds Goal:Patient/Caregive r will have improved healing and be free of signs and symptoms of complications Completed Completed by SN. Patient did tolerate well. documented in this encounter [facility]'s home Plan of care note* Visit Details Visit Type -SN ROUTINE Discipline -Half-Way Problems Problem Description Start Date Status Goals Interve ntions Medication Education Disciplines: Skilled Services 08/20/2022 Active 1 goal linked to scheduled/documen pawan intervention 1 goal intervention scheduled/document ed in this visit Sepsis Disciplines: Skilled Services 08/20/2022 Active 1 goal linked to scheduled/documen pawan intervention 1 goal intervention scheduled/document ed in this visit Physician Specific Parameters Disciplines: Skilled Services 08/20/2022 Active 1 goal linked to scheduled/documen pawan intervention 1 goal intervention scheduled/document ed in this visit Risk for Falls Disciplines: Skilled Services 08/20/2022 Active 1 goal linked to scheduled/documen pawan intervention 1 goal intervention scheduled/document ed in this visit Pain Disciplines: Skilled Services 08/20/2022 Active 1 goal linked to scheduled/documen pawan intervention 1 goal intervention scheduled/document ed in this visit Diabetic Foot Care Disciplines: Skilled Services 08/20/2022 Active 1 goal linked to scheduled/documen pawan intervention 1 goal intervention scheduled/document ed in this visit Oxygen Disciplines: Skilled Services 08/20/2022 Active 1 goal linked to scheduled/documen pawan intervention 1 goal intervention scheduled/document ed in this visit High Risk Medications Disciplines: Skilled Services 08/20/2022 Active 1 goal linked to scheduled/documen pawan intervention 4 goal interventions scheduled/document ed in this visit Discharge Disciplines: Skilled Services 08/20/2022 Active 1 goal linked to scheduled/documen pawan intervention 1 goal intervention scheduled/document ed in this visit SN Edema Disciplines: SN 08/20/2022 Active 1 goal linked to scheduled/documen pawan intervention 1 goal intervention scheduled/document ed in this visit SN Diabetes Disciplines: SN 08/20/2022 Active 1 goal linked to scheduled/documen pawan intervention 1 goal intervention scheduled/document ed in this visit SN Cardiovascular Condition Disciplines: SN 08/20/2022 Active 1 goal linked to scheduled/documen pawan intervention 1 goal intervention scheduled/document ed in this visit SN Learning Assessment Disciplines: SN 08/20/2022 Active 1 goal linked to scheduled/documen pawan intervention 1 goal intervention scheduled/document ed in this visit SN COPD Disciplines: SN 09/22/2022 Active 1 goal linked to scheduled/documen pawan intervention 1 goal intervention scheduled/document ed in this visit SN Integumentary/Wound s Disciplines: SN 11/09/2022 Active 1 goal linked to scheduled/documen pawan intervention 2 goal interventions scheduled/document ed in this visit SN Integumentary/Wound s Disciplines: SN 11/11/2022 Active 1 goal linked to scheduled/documen pawan intervention 1 goal intervention scheduled/document ed in this visit SN Integumentary/Wound s Disciplines: SN 11/27/2022 Active 1 goal linked to scheduled/documen pawan intervention 1 goal intervention scheduled/document ed in this visit Recertification Disciplines: Skilled Services 12/17/2022 Active 1 goal linked to scheduled/documen pawan intervention 1 goal intervention scheduled/document ed in this visit SN Integumentary/Wound s Disciplines: SN 01/14/2023 Active 1 goal linked to scheduled/documen pawan intervention 1 goal intervention scheduled/document ed in this visit Goals Goal Associated Problem Outcome Goal Met? Visit Notes Patient/caregiver will demonstrate ability to obtain, store, identify and administer ordered medications, keep accurate medication list in home, and adhere to medication schedule Description: Patient/caregiver will demonstrate ability to obtain, store, identify and administer ordered medications, keep accurate medication list in home, and adhere to medication schedule by 02-15-23. Medication Education No Patient/caregiver will be able to identify and report symptoms of sepsis Description: Patient/caregiver will be able to identify signs/symptoms of sepsis infection and will verbalize actions to take if suspected by 02-15-23. Sepsis No Patient to maintain parameters within physician-specified ranges throughout certification period Physician Specific Parameters No Manage Risk for falls Description: Patient/caregiver will verbalize knowledge of individualized fall prevention strategies by 02-15-23. Risk for Falls No Manage Pain Description: Patient/caregiver will verbalize knowledge and understanding of appropriate techniques to control pain, including pain medication and non-pharmacological techniques. Patient will verbalize or demonstrate an acceptable level of pain as evidenced by a pain score of 0-3/10 and improvement in ability to perform activities of daily living to be achieved by 02-15-23. Pain No Manage diabetic foot care Description: Patient/caregiver will demonstrate basic understanding of and compliance with diabetic self-care management as evidenced by verbalizing purpose of daily foot care and assessment by 02-15-23. Diabetic Foot Care No Manage oxygen Description: Patient/caregiver will use oxygen safely and effectively in home by verbalizing and demonstrating oxygen safety by 02-15-23. Oxygen No Patient/caregiver will teach back high risk medication side effect and precaution education High Risk Medications No Manage discharge planning Description: Patient/caregiver will verbalize understanding of ongoing discharge plan provided related to disease management, arrangements for outpatient and/or community services, obtaining medications, supplies, and DME, as needed throughout certification period. Discharge No Patient will have improved edema management Description: Patient/caregiver will demonstrate an understanding of edema management strategies as evidenced by resolution or stabilization of edema by 02-15-23. SN Edema No Improved management of diabetes Description: Improve diabetic management as evidenced by patient/caregiver able to teach back diabetic management strategies by 02-15-23. SN Diabetes No Improved management of cardiovascular disease Description: Improve patient/caregiver management of cardiac disease as evidenced by patient/caregiver ability to teach back cardiac management strategies by 02-15-23. SN Cardiovascular Condition No Demonstrate understanding of education Description: Patient and/or caregiver will verbalize understanding of educational instruction provided throughout certification period. SN Learning Assessment No Improved management of COPD Description: Improve COPD management as evidenced by decreased reports of dyspnea, medication compliance, and patient able to teach back strategies to manage condition. Goal to be achieved by 02-15-23 SN COPD No Patient/Caregiver will have improved healing and be free of signs and symptoms of complications Description: Patient/caregiver will verbalize management strategies to promote wound healing & prevent complications as evidenced by improved healing & no complications by 02-15-23. SN Integumentary/Wounds No Patient/Caregiver will have improved healing and be free of signs and symptoms of complications Description: Patient/caregiver will verbalize management strategies to promote wound healing & prevent complications as evidenced by improved healing & no complications by 02-15-23. SN Integumentary/Wounds No Patient/Caregiver will have improved healing and be free of signs and symptoms of complications Description: Patient/caregiver will verbalize management strategies to promote wound healing & prevent complications as evidenced by improved healing & no complications by 02-15-23. SN Integumentary/Wounds No Ongoing review of POC and need for skilled services Recertification No Patient/Caregiver will have improved healing and be free of signs and symptoms of complications Description: Patient/caregiver will verbalize management strategies to promote wound healing & prevent complications as evidenced by improved healing & no complications by 02-15-23. SN Integumentary/Wounds No Interventions Intervention Associated Problem/Goal Status Variance Visit Notes Medication Education Description: Evaluate/instruct patient/caregiver on obtaining, storing, identifying and administering ordered medications as well as keeping accurate medication list in the home and adhereing to medication schedule Problem:Medication Education Goal:Patient/caregive r will demonstrate ability to obtain, store, identify and administer ordered medications, keep accurate medication list in home, and adhere to medication schedule Completed Patient instructed on importance of keeping accurate medication list in home, adhering to medication schedule and proper storage of medications. Risk of Sepsis Description: Patient is at risk for sepsis. Monitor closely for s/s of sepsis. Problem:Sepsis Goal:Patient/caregive r will be able to identify and report symptoms of sepsis Completed SPO2 Description: Notify if pulse ox is <92% at rest. Problem:Physician Specific Parameters Goal:Patient to maintain parameters within physician-specified ranges throughout certification period Completed Instruct on individual fall risk factors and strategies to prevent falls and injuries caused by falls. Problem:Risk for Falls Goal:Manage Risk for falls Completed SN: Patient instructed on Eliminating Environmental Hazards: Keep pathways clear, Keep pets out of pathways, Keep rooms and walkways well lit, Wear supportive shoes or non-skid socks and Keep frequently used items within reach Instruct on pain and instruct on strategies to control pain Problem:Pain Goal:Manage Pain Completed patient and caregiver instructed on techniques to control pain including Pharmacological measures and Non-Pharmacological measures; rest, positioning/elevation and mobility/therapeutic exercise. Monitor lower extremities for skin lesions and educate on proper foot care Problem:Diabetic Foot Care Goal:Manage diabetic foot care Completed patient instructed on diabetic foot care including daily skin inspection, wearing proper footwear/avoiding going barefoot, wash/dry feet thoroughly, applying moisturizer, avoiding between toes and toenail care. Instruct on fire safety and safe and effective use of oxygen in the home Problem:Oxygen Goal:Manage oxygen Completed patient instructed on: findings of safety risk assessment, causes of fires, firerisks for neighboring residences and buildings, precautions that can prevent fire-related injuries, oxygen safety as outlined in Home Care Patient Handbook and recommendations for specific safety risks identified in the home: maintenance of working smoke detectors and changing batteries, establishment of fire escape plan, telephone accessibility and implementation of no-smoking policy in home, including e-cigarettes and posting of No-Smoking signs on entrance doors patient and caregiver demonstrate compliance with safety recommendations. Opioids- educated on high risk medication Problem:High Risk Medications Goal:Patient/caregive r will teach back high risk medication side effect and precaution education Completed patient educated on taking medication(s) as prescribed by provider. Do not stop medication or alter doses without speaking with your provider. Discuss medication effectiveness or side effect concerns with your provider and home care team. Only take opioids as prescribed, do not share your medications, and take proper precautions in storing and properly disposing of opioids once no longer needed. Possible side effects of opioid medication including sedation, decreased rate of breathing, and constipation. Report over sedation to prescribing provider and practice deep breathing techniques every hour while awake. Prevent constipation by increasing water and fiber intake, increasing activity as tolerated, and use stool softener(s) as prescribed. Hypoglycemic (including insulin)- educated on high risk medication Problem:High Risk Medications Goal:Patient/caregive r will teach back high risk medication side effect and precaution education Completed patient educated on taking medication(s) as prescribed by provider. Do not stop medication or skip/alter doses without speaking with your provider. Discuss medication effectiveness or side effect concerns with your provider and home care team. Check blood sugars and keep log as ordered by provider. Monitor for side effects of hypoglycemia such as increased weakness or shaking, moist skin, sweating, fast heartbeat, dizziness, sudden hunger, confusion, pale skin, numbness in mouth or tongue, irritability, nervousness, unsteadiness, nightmares, bad dreams, and restless sleep. Checking your blood sugar routinely and eating a consistent diabetic diet can help regulate blood sugars and reduce side effects. Antiplatelet- educated on high risk medication Problem:High Risk Medications Goal:Patient/caregive r will teach back high risk medication side effect and precaution education Completed patient educated on taking medication(s) as prescribed by provider. Do not stop medication or alter doses without speaking with your provider. Discuss medication effectiveness or side effect concerns with your provider and home care team. Discuss all medications you are taking, even [id number] medicines, with your provider and pharmacist since many drugs can interact with antiplatelet medications. If you forget to take a dose, DO NOT take a double dose. Take the missed dose as soon as possible on the same day. DO NOT take a double dose the next day to make up for the missed dose. Watch for signs of abnormal or excessive bleeding and bruising (refer to Bleeding Precautions education). Call your health care provider right away if you suspect something is wrong. Antibiotic- educated on high risk medication Problem:High Risk Medications Goal:Patient/caregive r will teach back high risk medication side effect and precaution education Completed patient educated on taking medication(s) as prescribed by provider. Do not stop medication or alter doses without speaking with your provider. Discuss medication effectiveness or side effect concerns with your provider and home care team. Take the full dispensed amount even if you start feeling better, as bacteria can become resistant to antibiotic treatment if you do not finish your prescription. Common side effects are upset stomach and diarrhea. Take your antibiotics with food unless otherwise indicated to help with indigestion. Taking an [id number] probiotic or eating yogurt with live and active cultures three times a day can help prevent antibiotic-associated diarrhea. Call your provider immediately if you develop rashes or hives as this could be a delayed allergic reaction. Seek emergency treatment if you develop severe allergic reaction symptoms such as mouth or tongue swelling. Instruct on ongoing discharge plan Problem:Discharge Goal:Manage discharge planning Completed Ongoing Discharge plan: Discharge plan discussed with patient including frequency and duration for home SN and plan for transition to: caregiver assistance. Assess and instruct on measures to reduce edema Problem:SN Edema Goal:Patient will have improved edema management Completed patient instructed on elevation, compression, diet, medication compliance and benefits of activity. Instruct on diabetes disease process and management of chronic condition Description: Patient has needs for education of diabetes. Problem:SN Diabetes Goal:Improved management of diabetes Completed patient assessed and reinforced on diabetes disease process, diet education, how to carb count, recogonizing s/s of hypoglycemia and hyperglycemia and managing sick days as found in the diabetes self-care booklets. Instruct on cardiovascular disease process and management of condition Description: Patient has following cardiac diagnosis(es): CAD. Problem:SN Cardiovascular Condition Goal:Improved management of cardiovascular disease Completed patient instructed on cardiac disease process, self monitoring & symptom reporting and Cardiac Diet. Instruct and educate on knowledge deficits Problem:SN Learning Assessment Goal:Demonstrate understanding of education Completed patient verbalize and/or demonstrate understanding of nursing education completed today. Education methods include: verbal cues and teach back. Further education required to improve knowledge and compliance with cardiac disease management, diabetic care management, fall prevention/home safety strategies and incision/wound care management. Acute COPD Description: Instruct on defintion of COPD, signs and symptoms of COPD exacerbation, use of zone sheet, use of MDIs, difference between rescue vs maintenance inhalers, use of nebulizer, smoking cessation, breathing management including pursed lip breathing, diaphragmatic breathing, positioning to reduce SOB, controlled coughing, use of incentive spirometer, and use of acapela as found in the COPD binder. Problem:SN COPD Goal:Improved management of COPD Completed patient reinforced on defintion of COPD, signs and symptoms of COPD exacerbation, difference between rescue vs maintenance inhalers, use of nebulizer, smoking cessation and breathing management: pursed lip breathing, diaphragmatic breathing, positioning to reduce SOB and controlled coughing as found in the COPD binder. Instruct patient/caregiver healing process and management measures to promote healing and avoid complications Problem:SN Integumentary/Wounds Goal:Patient/Caregive r will have improved healing and be free of signs and symptoms of complications Completed patient instructed on the following: healing process, signs and symptoms of infection, importance of good nutrition, importance of managing blood sugars, smoking cessation and when to report symptoms. Instruct Patient/Caregiver on wound/incision care procedure as ordered by physician Description: L gluteal abscess care daily and as needed: Cleanse area in shower or with soap/water, cover with clean dry dressing and change each day and as needed for drainage. Continue this until no drainage present on dressing. Problem:SN Integumentary/Wounds Goal:Patient/Caregive r will have improved healing and be free of signs and symptoms of complications Completed patient instructed on and return demonstrated wound care as ordered by Physician. Wound Care: Perform wound care (2) Description: Wound Care Order: Wound location: left buttocks Wound type (etiology): abcess Order: cleanse with NS pat dry pack with idoforme packing. cover with dry dressing Frequency: 3xweek and PRN for soiled Wound care to be completed by patient except for scheduled SN wound care visits. Measure wound/incision at least weekly. Okay to substitute comparable products from home care formulary. Problem:SN Integumentary/Wounds Goal:Patient/Caregive r will have improved healing and be free of signs and symptoms of complications Completed Completed by SN. Patient did tolerate well. Wound Care: Perform wound care (4) Description: Wound Care Order: Wound location: right inner thigh Wound type (etiology): Boil Order: cleanse with mild soap and water rinse pat dry pack with idoform packing and cover with dry dressing Frequency: 3xweek Wound care to be completed by patient except for scheduled SN wound care visits. Measure wound/incision at least weekly. Okay to substitute comparable products from home care formulary. Problem:SN Integumentary/Wounds Goal:Patient/Caregive r will have improved healing and be free of signs and symptoms of complications Completed Completed by SN. Patient did tolerate well. Continued need for Home Care Services Description: POC and certification renewed due to continuing [facility] needs. Problem:Recertificati on Goal:Ongoing review of POC and need for skilled services Completed Wound Care: Perform wound care (5) Description: Wound Care Order: Wound location: left inner upper thigh Wound type (etiology): Boil Order: Cleanse with mild soap and water or chlorihexadine rinse pat dry pack wound with calcium alginate siver rope, cover with dry clean dressing. Frequency: 3x week and as needed for soiled Wound care to be completed by patient except for scheduled SN wound care visits. Measure wound/incision at least weekly. Okay to substitute comparable products from home care formulary. Problem:SN Integumentary/Wounds Goal:Patient/Caregive r will have improved healing and be free of signs and symptoms of complications Completed Completed by SN. Patient did tolerate well. [facility] Visit Details Visit Type -SN ROUTINE Discipline -Half-Way Problems Problem Description Start Date Status Goals Interve ntions Medication Education Disciplines: Skilled Services 08/20/2022 Active 1 goal linked to scheduled/documen pawan intervention 1 goal intervention scheduled/document ed in this visit Sepsis Disciplines: Skilled Services 08/20/2022 Active 1 goal linked to scheduled/documen pawan intervention 1 goal intervention scheduled/document ed in this visit Physician Specific Parameters Disciplines: Skilled Services 08/20/2022 Active 1 goal linked to scheduled/documen pawan intervention 1 goal intervention scheduled/document ed in this visit Risk for Falls Disciplines: Skilled Services 08/20/2022 Active 1 goal linked to scheduled/documen pawan intervention 1 goal intervention scheduled/document ed in this visit Pain Disciplines: Skilled Services 08/20/2022 Active 1 goal linked to scheduled/documen pawan intervention 1 goal intervention scheduled/document ed in this visit Diabetic Foot Care Disciplines: Skilled Services 08/20/2022 Active 1 goal linked to scheduled/documen pawan intervention 1 goal intervention scheduled/document ed in this visit Oxygen Disciplines: Skilled Services 08/20/2022 Active 1 goal linked to scheduled/documen pawan intervention 1 goal intervention scheduled/document ed in this visit High Risk Medications Disciplines: Skilled Services 08/20/2022 Active 1 goal linked to scheduled/documen pawan intervention 4 goal interventions scheduled/document ed in this visit Discharge Disciplines: Skilled Services 08/20/2022 Active 1 goal linked to scheduled/documen pawan intervention 1 goal intervention scheduled/document ed in this visit SN Edema Disciplines: SN 08/20/2022 Active 1 goal linked to scheduled/documen pawan intervention 1 goal intervention scheduled/document ed in this visit SN Diabetes Disciplines: SN 08/20/2022 Active 1 goal linked to scheduled/documen pawan intervention 1 goal intervention scheduled/document ed in this visit SN Cardiovascular Condition Disciplines: SN 08/20/2022 Active 1 goal linked to scheduled/documen pawan intervention 1 goal intervention scheduled/document ed in this visit SN Learning Assessment Disciplines: SN 08/20/2022 Active 1 goal linked to scheduled/documen pawan intervention 1 goal intervention scheduled/document ed in this visit SN COPD Disciplines: SN 09/22/2022 Active 1 goal linked to scheduled/documen pawan intervention 3 goal interventions scheduled/document ed in this visit SN Integumentary/Wound s Disciplines: SN 11/09/2022 Active 1 goal linked to scheduled/documen pawan intervention 2 goal interventions scheduled/document ed in this visit SN Integumentary/Wound s Disciplines: SN 11/11/2022 Active 1 goal linked to scheduled/documen pawan intervention 1 goal intervention scheduled/document ed in this visit SN Integumentary/Wound s Disciplines: SN 11/27/2022 Active 1 goal linked to scheduled/documen pawan intervention 1 goal intervention scheduled/document ed in this visit Recertification Disciplines: Skilled Services 12/17/2022 Active 1 goal linked to scheduled/documen pawan intervention 1 goal intervention scheduled/document ed in this visit SN Integumentary/Wound s Disciplines: SN 01/14/2023 Active 1 goal linked to scheduled/documen pawan intervention 1 goal intervention scheduled/document ed in this visit Goals Goal Associated Problem Outcome Goal Met? Visit Notes Patient/caregiver will demonstrate ability to obtain, store, identify and administer ordered medications, keep accurate medication list in home, and adhere to medication schedule Description: Patient/caregiver will demonstrate ability to obtain, store, identify and administer ordered medications, keep accurate medication list in home, and adhere to medication schedule by 02-15-23. Medication Education No Patient/caregiver will be able to identify and report symptoms of sepsis Description: Patient/caregiver will be able to identify signs/symptoms of sepsis infection and will verbalize actions to take if suspected by 02-15-23. Sepsis No Patient to maintain parameters within physician-specified ranges throughout certification period Physician Specific Parameters No Manage Risk for falls Description: Patient/caregiver will verbalize knowledge of individualized fall prevention strategies by 02-15-23. Risk for Falls No Manage Pain Description: Patient/caregiver will verbalize knowledge and understanding of appropriate techniques to control pain, including pain medication and non-pharmacological techniques. Patient will verbalize or demonstrate an acceptable level of pain as evidenced by a pain score of 0-3/10 and improvement in ability to perform activities of daily living to be achieved by 02-15-23. Pain No Manage diabetic foot care Description: Patient/caregiver will demonstrate basic understanding of and compliance with diabetic self-care management as evidenced by verbalizing purpose of daily foot care and assessment by 02-15-23. Diabetic Foot Care No Manage oxygen Description: Patient/caregiver will use oxygen safely and effectively in home by verbalizing and demonstrating oxygen safety by 02-15-23. Oxygen No Patient/caregiver will teach back high risk medication side effect and precaution education High Risk Medications No Manage discharge planning Description: Patient/caregiver will verbalize understanding of ongoing discharge plan provided related to disease management, arrangements for outpatient and/or community services, obtaining medications, supplies, and DME, as needed throughout certification period. Discharge No Patient will have improved edema management Description: Patient/caregiver will demonstrate an understanding of edema management strategies as evidenced by resolution or stabilization of edema by 02-15-23. SN Edema No Improved management of diabetes Description: Improve diabetic management as evidenced by patient/caregiver able to teach back diabetic management strategies by 02-15-23. SN Diabetes No Improved management of cardiovascular disease Description: Improve patient/caregiver management of cardiac disease as evidenced by patient/caregiver ability to teach back cardiac management strategies by 02-15-23. SN Cardiovascular Condition No Demonstrate understanding of education Description: Patient and/or caregiver will verbalize understanding of educational instruction provided throughout certification period. SN Learning Assessment No Improved management of COPD Description: Improve COPD management as evidenced by decreased reports of dyspnea, medication compliance, and patient able to teach back strategies to manage condition. Goal to be achieved by 02-15-23 SN COPD No Patient/Caregiver will have improved healing and be free of signs and symptoms of complications Description: Patient/caregiver will verbalize management strategies to promote wound healing & prevent complications as evidenced by improved healing & no complications by 02-15-23. SN Integumentary/Wounds No Patient/Caregiver will have improved healing and be free of signs and symptoms of complications Description: Patient/caregiver will verbalize management strategies to promote wound healing & prevent complications as evidenced by improved healing & no complications by 02-15-23. SN Integumentary/Wounds No Patient/Caregiver will have improved healing and be free of signs and symptoms of complications Description: Patient/caregiver will verbalize management strategies to promote wound healing & prevent complications as evidenced by improved healing & no complications by 02-15-23. SN Integumentary/Wounds No Ongoing review of POC and need for skilled services Recertification No Patient/Caregiver will have improved healing and be free of signs and symptoms of complications Description: Patient/caregiver will verbalize management strategies to promote wound healing & prevent complications as evidenced by improved healing & no complications by 02-15-23. SN Integumentary/Wounds No Interventions Intervention Associated Problem/Goal Status Variance Visit Notes Medication Education Description: Evaluate/instruct patient/caregiver on obtaining, storing, identifying and administering ordered medications as well as keeping accurate medication list in the home and adhereing to medication schedule Problem:Medication Education Goal:Patient/caregive r will demonstrate ability to obtain, store, identify and administer ordered medications, keep accurate medication list in home, and adhere to medication schedule Completed Patient instructed on importance of keeping accurate medication list in home, adhering to medication schedule and proper storage of medications. Risk of Sepsis Description: Patient is at risk for sepsis. Monitor closely for s/s of sepsis. Problem:Sepsis Goal:Patient/caregive r will be able to identify and report symptoms of sepsis Completed SPO2 Description: Notify if pulse ox is <92% at rest. Problem:Physician Specific Parameters Goal:Patient to maintain parameters within physician-specified ranges throughout certification period Completed Instruct on individual fall risk factors and strategies to prevent falls and injuries caused by falls. Problem:Risk for Falls Goal:Manage Risk for falls Completed SN: Patient instructed on Eliminating Environmental Hazards: Keep pathways clear, Keep pets out of pathways, Keep rooms and walkways well lit, Wear supportive shoes or non-skid socks and Keep frequently used items within reach Instruct on pain and instruct on strategies to control pain Problem:Pain Goal:Manage Pain Completed patient instructed on techniques to control pain including Pharmacological measures and Non-Pharmacological measures; rest, positioning/elevation, distraction and breathing/relaxation. Monitor lower extremities for skin lesions and educate on proper foot care Problem:Diabetic Foot Care Goal:Manage diabetic foot care Completed patient instructed on diabetic foot care including daily skin inspection, wearing proper footwear/avoiding going barefoot, wash/dry feet thoroughly, applying moisturizer, avoiding between toes and toenail care. Instruct on fire safety and safe and effective use of oxygen in the home Problem:Oxygen Goal:Manage oxygen Completed patient instructed on: findings of safety risk assessment, causes of fires, firerisks for neighboring residences and buildings, precautions that can prevent fire-related injuries and oxygen safety as outlined in Home Care Patient Handbook patient demonstrate compliance with safety recommendations. Opioids- educated on high risk medication Problem:High Risk Medications Goal:Patient/caregive r will teach back high risk medication side effect and precaution education Completed patient educated on taking medication(s) as prescribed by provider. Do not stop medication or alter doses without speaking with your provider. Discuss medication effectiveness or side effect concerns with your provider and home care team. Only take opioids as prescribed, do not share your medications, and take proper precautions in storing and properly disposing of opioids once no longer needed. Possible side effects of opioid medication including sedation, decreased rate of breathing, and constipation. Report over sedation to prescribing provider and practice deep breathing techniques every hour while awake. Prevent constipation by increasing water and fiber intake, increasing activity as tolerated, and use stool softener(s) as prescribed. Hypoglycemic (including insulin)- educated on high risk medication Problem:High Risk Medications Goal:Patient/caregive r will teach back high risk medication side effect and precaution education Completed patient educated on taking medication(s) as prescribed by provider. Do not stop medication or skip/alter doses without speaking with your provider. Discuss medication effectiveness or side effect concerns with your provider and home care team. Check blood sugars and keep log as ordered by provider. Monitor for side effects of hypoglycemia such as increased weakness or shaking, moist skin, sweating, fast heartbeat, dizziness, sudden hunger, confusion, pale skin, numbness in mouth or tongue, irritability, nervousness, unsteadiness, nightmares, bad dreams, and restless sleep. Checking your blood sugar routinely and eating a consistent diabetic diet can help regulate blood sugars and reduce side effects. Antiplatelet- educated on high risk medication Problem:High Risk Medications Goal:Patient/caregive r will teach back high risk medication side effect and precaution education Completed patient educated on taking medication(s) as prescribed by provider. Do not stop medication or alter doses without speaking with your provider. Discuss medication effectiveness or side effect concerns with your provider and home care team. Discuss all medications you are taking, even revf-fyd-[id number] medicines, with your provider and pharmacist since many drugs can interact with antiplatelet medications. If you forget to take a dose, DO NOT take a double dose. Take the missed dose as soon as possible on the same day. DO NOT take a double dose the next day to make up for the missed dose. Watch for signs of abnormal or excessive bleeding and bruising (refer to Bleeding Precautions education). Call your health care provider right away if you suspect something is wrong. Antibiotic- educated on high risk medication Problem:High Risk Medications Goal:Patient/caregive r will teach back high risk medication side effect and precaution education Completed patient educated on taking medication(s) as prescribed by provider. Do not stop medication or alter doses without speaking with your provider. Discuss medication effectiveness or side effect concerns with your provider and home care team. Take the full dispensed amount even if you start feeling better, as bacteria can become resistant to antibiotic treatment if you do not finish your prescription. Common side effects are upset stomach and diarrhea. Take your antibiotics with food unless otherwise indicated to help with indigestion. Taking an kmip-lrh-pzqluus probiotic or eating yogurt with live and active cultures three times a day can help prevent antibiotic-associated diarrhea. Call your provider immediately if you develop rashes or hives as this could be a delayed allergic reaction. Seek emergency treatment if you develop severe allergic reaction symptoms such as mouth or tongue swelling. Instruct on ongoing discharge plan Problem:Discharge Goal:Manage discharge planning Completed Ongoing Discharge plan: Discharge plan discussed with patient including frequency and duration for home SN and plan for transition to: caregiver assistance. Assess and instruct on measures to reduce edema Problem:SN Edema Goal:Patient will have improved edema management Completed patient instructed on elevation, compression, diet, medication compliance and benefits of activity. Instruct on diabetes disease process and management of chronic condition Description: Patient has needs for education of diabetes. Problem:SN Diabetes Goal:Improved management of diabetes Completed patient assessed and reinforced on diabetes disease process, diet education, how to carb count, recogonizing s/s of hypoglycemia and hyperglycemia and managing sick days as found in the diabetes self-care booklets. Instruct on cardiovascular disease process and management of condition Description: Patient has following cardiac diagnosis(es): CAD. Problem:SN Cardiovascular Condition Goal:Improved management of cardiovascular disease Completed patient instructed on cardiac disease process, self monitoring & symptom reporting and Cardiac Diet. Instruct and educate on knowledge deficits Problem:SN Learning Assessment Goal:Demonstrate understanding of education Completed patient verbalize and/or demonstrate understanding of nursing education completed today. Education methods include: verbal cues. Further education required to improve knowledge and compliance with cardiac disease management, diabetic care management, fall prevention/home safety strategies and incision/wound care management. Maintenance COPD Description: Reinforce Acute and Sub-acute management education. Instruct on review zone sheet, nutrition in relation to COPD management, energy conservation, pacing activities, independence in ADLs vs what caregiver should be helping with, home exercise, additional COPD resources available like chronic care clinics as found in the COPD binder. Problem:SN COPD Goal:Improved management of COPD Completed Reinforced Acute and Sub-acute management education. patient reinforced on zone sheet, nutrition in relation to COPD management and energy conservation pacing activities, Romeo in ADLs vs what caregiver should be helping with and home exercise. Sub-acute COPD Description: Reinforce Acute COPD management education. Instruct on zone sheet, methods to reduce infection risks, anxiety management including relaxation techniques, importance of sleep, stress reduction, and coping strategies for living with COPD as found in the COPD binder. Problem:SN COPD Goal:Improved management of COPD Completed Reinforced Acute COPD management education. patient reinforced on zone sheet, methods to reduce infection risks, anxiety management including: relaxation techniques, importance of sleep and stress reduction and coping strategies for living with COPD. Acute COPD Description: Instruct on defintion of COPD, signs and symptoms of COPD exacerbation, use of zone sheet, use of MDIs, difference between rescue vs maintenance inhalers, use of nebulizer, smoking cessation, breathing management including pursed lip breathing, diaphragmatic breathing, positioning to reduce SOB, controlled coughing, use of incentive spirometer, and use of acapela as found in the COPD binder. Problem:SN COPD Goal:Improved management of COPD Completed patient reinforced on defintion of COPD, signs and symptoms of COPD exacerbation, use of zone sheet, use of MDIs and difference between rescue vs maintenance inhalers as found in the COPD binder. Instruct patient/caregiver healing process and management measures to promote healing and avoid complications Problem:SN Integumentary/Wounds Goal:Patient/Caregive r will have improved healing and be free of signs and symptoms of complications Completed patient instructed on the following: healing process, signs and symptoms of infection, importance of good nutrition, importance of managing blood sugars, smoking cessation and when to report symptoms. Instruct Patient/Caregiver on wound/incision care procedure as ordered by physician Description: L gluteal abscess care daily and as needed: Cleanse area in shower or with soap/water, cover with clean dry dressing and change each day and as needed for drainage. Continue this until no drainage present on dressing. Problem:SN Integumentary/Wounds Goal:Patient/Caregive r will have improved healing and be free of signs and symptoms of complications Completed patient instructed on and return demonstrated wound care as ordered by Physician. Wound Care: Perform wound care (2) Description: Wound Care Order: Wound location: left buttocks Wound type (etiology): abcess Order: cleanse with NS pat dry pack with idoforme packing. cover with dry dressing Frequency: 3xweek and PRN for soiled Wound care to be completed by patient except for scheduled SN wound care visits. Measure wound/incision at least weekly. Okay to substitute comparable products from home care formulary. Problem:SN Integumentary/Wounds Goal:Patient/Caregive r will have improved healing and be free of signs and symptoms of complications Completed Completed by SN. Patient did tolerate well. Wound Care: Perform wound care (4) Description: Wound Care Order: Wound location: right inner thigh Wound type (etiology): Boil Order: cleanse with mild soap and water rinse pat dry pack with idoform packing and cover with dry dressing Frequency: 3xweek Wound care to be completed by patient except for scheduled SN wound care visits. Measure wound/incision at least weekly. Okay to substitute comparable products from home care formulary. Problem:SN Integumentary/Wounds Goal:Patient/Caregive r will have improved healing and be free of signs and symptoms of complications Completed Completed by SN. Patient did tolerate well. Continued need for Home Care Services Description: POC and certification renewed due to continuing [facility] needs. Problem:Recertificati on Goal:Ongoing review of POC and need for skilled services Completed Wound Care: Perform wound care (5) Description: Wound Care Order: Wound location: left inner upper thigh Wound type (etiology): Boil Order: Cleanse with mild soap and water or chlorihexadine rinse pat dry pack wound with calcium alginate siver rope, cover with dry clean dressing. Frequency: 3x week and as needed for soiled Wound care to be completed by patient except for scheduled SN wound care visits. Measure wound/incision at least weekly. Okay to substitute comparable products from home care formulary. Problem:SN Integumentary/Wounds Goal:Patient/Caregive r will have improved healing and be free of signs and symptoms of complications Completed Completed by SN. Patient did tolerate well. documented in this encounter [facility] Plan of care note* Visit Details Visit Type -SN ROUTINE Discipline -Half-Way Problems Problem Description Start Date Status Goals Interve ntions Medication Education Disciplines: Skilled Services 08/20/2022 Active 1 goal linked to scheduled/document ed intervention 1 goal intervention scheduled/documente d in this visit Sepsis Disciplines: Skilled Services 08/20/2022 Active 1 goal linked to scheduled/document ed intervention 1 goal intervention scheduled/documente d in this visit Physician Specific Parameters Disciplines: Skilled Services 08/20/2022 Active 1 goal linked to scheduled/document ed intervention 1 goal intervention scheduled/documente d in this visit Risk for Falls Disciplines: Skilled Services 08/20/2022 Active 1 goal linked to scheduled/document ed intervention 1 goal intervention scheduled/documente d in this visit Diabetic Foot Care Disciplines: Skilled Services 08/20/2022 Active 1 goal linked to scheduled/document ed intervention 1 goal intervention scheduled/documente d in this visit Oxygen Disciplines: Skilled Services 08/20/2022 Active 1 goal linked to scheduled/document ed intervention 1 goal intervention scheduled/documente d in this visit High Risk Medications Disciplines: Skilled Services 08/20/2022 Active 1 goal linked to scheduled/document ed intervention 4 goal interventions scheduled/documente d in this visit Discharge Disciplines: Skilled Services 08/20/2022 Active 1 goal linked to scheduled/document ed intervention 1 goal intervention scheduled/documente d in this visit SN Edema Disciplines: SN 08/20/2022 Active 1 goal linked to scheduled/document ed intervention 1 goal intervention scheduled/documente d in this visit SN COPD Disciplines: SN 09/22/2022 Active 1 goal linked to scheduled/document ed intervention 1 goal intervention scheduled/documente d in this visit SN Integumentary/W ounds Disciplines: SN 11/09/2022 Active 1 goal linked to scheduled/document ed intervention 1 goal intervention scheduled/documente d in this visit SN Integumentary/W ounds Disciplines: SN 11/11/2022 Active 1 goal linked to scheduled/document ed intervention 1 goal intervention scheduled/documente d in this visit SN Integumentary/W ounds Disciplines: SN 11/27/2022 Active 1 goal linked to scheduled/document ed intervention 1 goal intervention scheduled/documente d in this visit Recertification Disciplines: Skilled Services 12/17/2022 Active 1 goal linked to scheduled/document ed intervention 1 goal intervention scheduled/documente d in this visit SN Integumentary/W ounds Disciplines: SN 01/14/2023 Active 1 goal linked to scheduled/document ed intervention 1 goal intervention scheduled/documente d in this visit Goals Goal Associated Problem Outcome Goal Met? Visit Notes Patient/caregiver will demonstrate ability to obtain, store, identify and administer ordered medications, keep accurate medication list in home, and adhere to medication schedule Description: Patient/caregiver will demonstrate ability to obtain, store, identify and administer ordered medications, keep accurate medication list in home, and adhere to medication schedule by 02-15-23. Medication Education No Patient/caregiver will be able to identify and report symptoms of sepsis Description: Patient/caregiver will be able to identify signs/symptoms of sepsis infection and will verbalize actions to take if suspected by 02-15-23. Sepsis No Patient to maintain parameters within physician-specified ranges throughout certification period Physician Specific Parameters No Manage Risk for falls Description: Patient/caregiver will verbalize knowledge of individualized fall prevention strategies by 02-15-23. Risk for Falls No Manage diabetic foot care Description: Patient/caregiver will demonstrate basic understanding of and compliance with diabetic self-care management as evidenced by verbalizing purpose of daily foot care and assessment by 02-15-23. Diabetic Foot Care No Manage oxygen Description: Patient/caregiver will use oxygen safely and effectively in home by verbalizing and demonstrating oxygen safety by 02-15-23. Oxygen No Patient/caregiver will teach back high risk medication side effect and precaution education High Risk Medications No Manage discharge planning Description: Patient/caregiver will verbalize understanding of ongoing discharge plan provided related to disease management, arrangements for outpatient and/or community services, obtaining medications, supplies, and DME, as needed throughout certification period. Discharge No Patient will have improved edema management Description: Patient/caregiver will demonstrate an understanding of edema management strategies as evidenced by resolution or stabilization of edema by 02-15-23. SN Edema No Improved management of COPD Description: Improve COPD management as evidenced by decreased reports of dyspnea, medication compliance, and patient able to teach back strategies to manage condition. Goal to be achieved by 02-15-23 SN COPD No Patient/Caregiver will have improved healing and be free of signs and symptoms of complications Description: Patient/caregiver will verbalize management strategies to promote wound healing & prevent complications as evidenced by improved healing & no complications by 02-15-23. SN Integumentary/Wounds No Patient/Caregiver will have improved healing and be free of signs and symptoms of complications Description: Patient/caregiver will verbalize management strategies to promote wound healing & prevent complications as evidenced by improved healing & no complications by 02-15-23. SN Integumentary/Wounds No Patient/Caregiver will have improved healing and be free of signs and symptoms of complications Description: Patient/caregiver will verbalize management strategies to promote wound healing & prevent complications as evidenced by improved healing & no complications by 02-15-23. SN Integumentary/Wounds No Ongoing review of POC and need for skilled services Recertification No Patient/Caregiver will have improved healing and be free of signs and symptoms of complications Description: Patient/caregiver will verbalize management strategies to promote wound healing & prevent complications as evidenced by improved healing & no complications by 02-15-23. SN Integumentary/Wounds No Interventions Intervention Associated Problem/Goal Status Variance Visit Notes Medication Education Description: Evaluate/instruct patient/caregiver on obtaining, storing, identifying and administering ordered medications as well as keeping accurate medication list in the home and adhereing to medication schedule Problem:Medication Education Goal:Patient/caregive r will demonstrate ability to obtain, store, identify and administer ordered medications, keep accurate medication list in home, and adhere to medication schedule Completed Patient instructed on importance of keeping accurate medication list in home, adhering to medication schedule and proper storage of medications. Risk of Sepsis Description: Patient is at risk for sepsis. Monitor closely for s/s of sepsis. Problem:Sepsis Goal:Patient/caregive r will be able to identify and report symptoms of sepsis Completed SPO2 Description: Notify if pulse ox is <92% at rest. Problem:Physician Specific Parameters Goal:Patient to maintain parameters within physician-specified ranges throughout certification period Completed Instruct on individual fall risk factors and strategies to prevent falls and injuries caused by falls. Problem:Risk for Falls Goal:Manage Risk for falls Completed SN: Patient instructed on Eliminating Environmental Hazards: Keep pathways clear, Keep pets out of pathways, Keep rooms and walkways well lit, Wear supportive shoes or non-skid socks and Keep frequently used items within reach Monitor lower extremities for skin lesions and educate on proper foot care Problem:Diabetic Foot Care Goal:Manage diabetic foot care Completed patient instructed on diabetic foot care including daily skin inspection, wearing proper footwear/avoiding going barefoot, wash/dry feet thoroughly, applying moisturizer, avoiding between toes and toenail care. Instruct on fire safety and safe and effective use of oxygen in the home Problem:Oxygen Goal:Manage oxygen Completed patient instructed on: findings of safety risk assessment, causes of fires, firerisks for neighboring residences and buildings, precautions that can prevent fire-related injuries and oxygen safety as outlined in Home Care Patient Handbook patient demonstrate compliance with safety recommendations. Opioids- educated on high risk medication Problem:High Risk Medications Goal:Patient/caregive r will teach back high risk medication side effect and precaution education Completed patient educated on taking medication(s) as prescribed by provider. Do not stop medication or alter doses without speaking with your provider. Discuss medication effectiveness or side effect concerns with your provider and home care team. Only take opioids as prescribed, do not share your medications, and take proper precautions in storing and properly disposing of opioids once no longer needed. Possible side effects of opioid medication including sedation, decreased rate of breathing, and constipation. Report over sedation to prescribing provider and practice deep breathing techniques every hour while awake. Prevent constipation by increasing water and fiber intake, increasing activity as tolerated, and use stool softener(s) as prescribed. Hypoglycemic (including insulin)- educated on high risk medication Problem:High Risk Medications Goal:Patient/caregive r will teach back high risk medication side effect and precaution education Completed patient educated on taking medication(s) as prescribed by provider. Do not stop medication or skip/alter doses without speaking with your provider. Discuss medication effectiveness or side effect concerns with your provider and home care team. Check blood sugars and keep log as ordered by provider. Monitor for side effects of hypoglycemia such as increased weakness or shaking, moist skin, sweating, fast heartbeat, dizziness, sudden hunger, confusion, pale skin, numbness in mouth or tongue, irritability, nervousness, unsteadiness, nightmares, bad dreams, and restless sleep. Checking your blood sugar routinely and eating a consistent diabetic diet can help regulate blood sugars and reduce side effects. Antiplatelet- educated on high risk medication Problem:High Risk Medications Goal:Patient/caregive r will teach back high risk medication side effect and precaution education Completed patient educated on taking medication(s) as prescribed by provider. Do not stop medication or alter doses without speaking with your provider. Discuss medication effectiveness or side effect concerns with your provider and home care team. Discuss all medications you are taking, even wjdm-xed-imbzjsk medicines, with your provider and pharmacist since many drugs can interact with antiplatelet medications. If you forget to take a dose, DO NOT take a double dose. Take the missed dose as soon as possible on the same day. DO NOT take a double dose the next day to make up for the missed dose. Watch for signs of abnormal or excessive bleeding and bruising (refer to Bleeding Precautions education). Call your health care provider right away if you suspect something is wrong. Antibiotic- educated on high risk medication Problem:High Risk Medications Goal:Patient/caregive r will teach back high risk medication side effect and precaution education Completed patient educated on taking medication(s) as prescribed by provider. Do not stop medication or alter doses without speaking with your provider. Discuss medication effectiveness or side effect concerns with your provider and home care team. Take the full dispensed amount even if you start feeling better, as bacteria can become resistant to antibiotic treatment if you do not finish your prescription. Common side effects are upset stomach and diarrhea. Take your antibiotics with food unless otherwise indicated to help with indigestion. Taking an ntyx-jst-dvfhcjt probiotic or eating yogurt with live and active cultures three times a day can help prevent antibiotic-associated diarrhea. Call your provider immediately if you develop rashes or hives as this could be a delayed allergic reaction. Seek emergency treatment if you develop severe allergic reaction symptoms such as mouth or tongue swelling. Instruct on ongoing discharge plan Problem:Discharge Goal:Manage discharge planning Completed Ongoing Discharge plan: Discharge plan discussed with patient including frequency and duration for home SN and plan for transition to: caregiver assistance. Assess and instruct on measures to reduce edema Problem:SN Edema Goal:Patient will have improved edema management Completed patient instructed on elevation, compression and diet. Maintenance COPD Description: Reinforce Acute and Sub-acute management education. Instruct on review zone sheet, nutrition in relation to COPD management, energy conservation, pacing activities, independence in ADLs vs what caregiver should be helping with, home exercise, additional COPD resources available like chronic care clinics as found in the COPD binder. Problem:SN COPD Goal:Improved management of COPD Completed Reinforced Acute and Sub-acute management education. patient reinforced on zone sheet, nutrition in relation to COPD management and energy conservation pacing activities and Romeo in ADLs vs what caregiver should be helping with as found in the COPD binder. Instruct patient/caregiver healing process and management measures to promote healing and avoid complications Problem:SN Integumentary/Wounds Goal:Patient/Caregive r will have improved healing and be free of signs and symptoms of complications Completed patient instructed on the following: healing process, signs and symptoms of infection, importance of good nutrition, importance of managing blood sugars, smoking cessation and when to report symptoms. Wound Care: Perform wound care (2) Description: Wound Care Order: Wound location: left buttocks Wound type (etiology): abcess Order: cleanse with NS pat dry pack with idoforme packing. cover with dry dressing Frequency: 3xweek and PRN for soiled Wound care to be completed by patient except for scheduled SN wound care visits. Measure wound/incision at least weekly. Okay to substitute comparable products from home care formulary. Problem:SN Integumentary/Wounds Goal:Patient/Caregive r will have improved healing and be free of signs and symptoms of complications Completed Completed by SN. Patient did tolerate well. Wound Care: Perform wound care (4) Description: Wound Care Order: Wound location: right inner thigh Wound type (etiology): Boil Order: cleanse with mild soap and water rinse pat dry pack with idoform packing and cover with dry dressing Frequency: 3xweek Wound care to be completed by patient except for scheduled SN wound care visits. Measure wound/incision at least weekly. Okay to substitute comparable products from home care formulary. Problem:SN Integumentary/Wounds Goal:Patient/Caregive r will have improved healing and be free of signs and symptoms of complications Completed Completed by SN. Patient did tolerate well. Continued need for Home Care Services Description: POC and certification renewed due to continuing [facility] needs. Problem:Recertificati on Goal:Ongoing review of POC and need for skilled services Completed Wound Care: Perform wound care (5) Description: Wound Care Order: Wound location: left inner upper thigh Wound type (etiology): Boil Order: Cleanse with mild soap and water or chlorihexadine rinse pat dry pack wound with calcium alginate siver rope, cover with dry clean dressing. Frequency: 3x week and as needed for soiled Wound care to be completed by patient except for scheduled SN wound care visits. Measure wound/incision at least weekly. Okay to substitute comparable products from home care formulary. Problem:SN Integumentary/Wounds Goal:Patient/Caregive r will have improved healing and be free of signs and symptoms of complications Completed Completed by SN. Patient did tolerate well. documented in this encounter [facility]'s home Plan of care note* Visit Details Visit Type -SN ROUTINE Discipline -Half-Way Problems Problem Description Start Date Status Goals Interve ntions Medication Education Disciplines: Skilled Services 08/20/2022 Active 1 goal linked to scheduled/documen pawan intervention 1 goal intervention scheduled/document ed in this visit Sepsis Disciplines: Skilled Services 08/20/2022 Active 1 goal linked to scheduled/documen pawan intervention 1 goal intervention scheduled/document ed in this visit Physician Specific Parameters Disciplines: Skilled Services 08/20/2022 Active 1 goal linked to scheduled/documen pawan intervention 1 goal intervention scheduled/document ed in this visit Risk for Falls Disciplines: Skilled Services 08/20/2022 Active 1 goal linked to scheduled/documen pawan intervention 1 goal intervention scheduled/document ed in this visit Pain Disciplines: Skilled Services 08/20/2022 Active 1 goal linked to scheduled/documen pawan intervention 1 goal intervention scheduled/document ed in this visit Diabetic Foot Care Disciplines: Skilled Services 08/20/2022 Active 1 goal linked to scheduled/documen pawan intervention 1 goal intervention scheduled/document ed in this visit Oxygen Disciplines: Skilled Services 08/20/2022 Active 1 goal linked to scheduled/documen pawan intervention 1 goal intervention scheduled/document ed in this visit High Risk Medications Disciplines: Skilled Services 08/20/2022 Active 1 goal linked to scheduled/documen pawan intervention 4 goal interventions scheduled/document ed in this visit Discharge Disciplines: Skilled Services 08/20/2022 Active 1 goal linked to scheduled/documen pawan intervention 1 goal intervention scheduled/document ed in this visit SN Edema Disciplines: SN 08/20/2022 Active 1 goal linked to scheduled/documen pawan intervention 1 goal intervention scheduled/document ed in this visit SN Diabetes Disciplines: SN 08/20/2022 Active 1 goal linked to scheduled/documen pawan intervention 1 goal intervention scheduled/document ed in this visit SN Cardiovascular Condition Disciplines: SN 08/20/2022 Active 1 goal linked to scheduled/documen pawan intervention 1 goal intervention scheduled/document ed in this visit SN Learning Assessment Disciplines: SN 08/20/2022 Active 1 goal linked to scheduled/documen pawan intervention 1 goal intervention scheduled/document ed in this visit SN COPD Disciplines: 09/22/2022 Active 1 goal linked to scheduled/documen pawan intervention 1 goal intervention scheduled/document ed in this visit SN Integumentary/Wound s Disciplines: 11/09/2022 Active 1 goal linked to scheduled/documen pawan intervention 2 goal interventions scheduled/document ed in this visit SN Integumentary/Wound s Disciplines: SN 11/11/2022 Active 1 goal linked to scheduled/documen pawan intervention 1 goal intervention scheduled/document ed in this visit SN Integumentary/Wound s Disciplines: SN 11/27/2022 Active 1 goal linked to scheduled/documen pawan intervention 1 goal intervention scheduled/document ed in this visit Recertification Disciplines: Skilled Services 12/17/2022 Active 1 goal linked to scheduled/documen pawan intervention 1 goal intervention scheduled/document ed in this visit SN Integumentary/Wound s Disciplines: SN 01/14/2023 Active 1 goal linked to scheduled/documen pawan intervention 1 goal intervention scheduled/document ed in this visit Goals Goal Associated Problem Outcome Goal Met? Visit Notes Patient/caregiver will demonstrate ability to obtain, store, identify and administer ordered medications, keep accurate medication list in home, and adhere to medication schedule Description: Patient/caregiver will demonstrate ability to obtain, store, identify and administer ordered medications, keep accurate medication list in home, and adhere to medication schedule by 7-. Medication Education No Patient/caregiver will be able to identify and report symptoms of sepsis Description: Patient/caregiver will be able to identify signs/symptoms of sepsis infection and will verbalize actions to take if suspected by 02-15-23. Sepsis No Patient to maintain parameters within physician-specified ranges throughout certification period Physician Specific Parameters No Manage Risk for falls Description: Patient/caregiver will verbalize knowledge of individualized fall prevention strategies by 02-15-23. Risk for Falls No Manage Pain Description: Patient/caregiver will verbalize knowledge and understanding of appropriate techniques to control pain, including pain medication and non-pharmacological techniques. Patient will verbalize or demonstrate an acceptable level of pain as evidenced by a pain score of 0-3/10 and improvement in ability to perform activities of daily living to be achieved by 02-15-23. Pain No Manage diabetic foot care Description: Patient/caregiver will demonstrate basic understanding of and compliance with diabetic self-care management as evidenced by verbalizing purpose of daily foot care and assessment by 02-15-23. Diabetic Foot Care No Manage oxygen Description: Patient/caregiver will use oxygen safely and effectively in home by verbalizing and demonstrating oxygen safety by 02-15-23. Oxygen No Patient/caregiver will teach back high risk medication side effect and precaution education High Risk Medications No Manage discharge planning Description: Patient/caregiver will verbalize understanding of ongoing discharge plan provided related to disease management, arrangements for outpatient and/or community services, obtaining medications, supplies, and DME, as needed throughout certification period. Discharge No Patient will have improved edema management Description: Patient/caregiver will demonstrate an understanding of edema management strategies as evidenced by resolution or stabilization of edema by 02-15-23. SN Edema No Improved management of diabetes Description: Improve diabetic management as evidenced by patient/caregiver able to teach back diabetic management strategies by 02-15-23. SN Diabetes No Improved management of cardiovascular disease Description: Improve patient/caregiver management of cardiac disease as evidenced by patient/caregiver ability to teach back cardiac management strategies by 02-15-23. SN Cardiovascular Condition No Demonstrate understanding of education Description: Patient and/or caregiver will verbalize understanding of educational instruction provided throughout certification period. SN Learning Assessment No Improved management of COPD Description: Improve COPD management as evidenced by decreased reports of dyspnea, medication compliance, and patient able to teach back strategies to manage condition. Goal to be achieved by 02-15-23 SN COPD No Patient/Caregiver will have improved healing and be free of signs and symptoms of complications Description: Patient/caregiver will verbalize management strategies to promote wound healing & prevent complications as evidenced by improved healing & no complications by 02-15-23. SN Integumentary/Wounds No Patient/Caregiver will have improved healing and be free of signs and symptoms of complications Description: Patient/caregiver will verbalize management strategies to promote wound healing & prevent complications as evidenced by improved healing & no complications by 02-15-23. SN Integumentary/Wounds No Patient/Caregiver will have improved healing and be free of signs and symptoms of complications Description: Patient/caregiver will verbalize management strategies to promote wound healing & prevent complications as evidenced by improved healing & no complications by 02-15-23. SN Integumentary/Wounds No Ongoing review of POC and need for skilled services Recertification No Patient/Caregiver will have improved healing and be free of signs and symptoms of complications Description: Patient/caregiver will verbalize management strategies to promote wound healing & prevent complications as evidenced by improved healing & no complications by 02-15-23. SN Integumentary/Wounds No Interventions Intervention Associated Problem/Goal Status Variance Visit Notes Medication Education Description: Evaluate/instruct patient/caregiver on obtaining, storing, identifying and administering ordered medications as well as keeping accurate medication list in the home and adhereing to medication schedule Problem:Medication Education Goal:Patient/caregive r will demonstrate ability to obtain, store, identify and administer ordered medications, keep accurate medication list in home, and adhere to medication schedule Completed Patient instructed on importance of keeping accurate medication list in home, adhering to medication schedule and proper storage of medications. Risk of Sepsis Description: Patient is at risk for sepsis. Monitor closely for s/s of sepsis. Problem:Sepsis Goal:Patient/caregive r will be able to identify and report symptoms of sepsis Completed SPO2 Description: Notify if pulse ox is <92% at rest. Problem:Physician Specific Parameters Goal:Patient to maintain parameters within physician-specified ranges throughout certification period Completed Instruct on individual fall risk factors and strategies to prevent falls and injuries caused by falls. Problem:Risk for Falls Goal:Manage Risk for falls Completed SN: Patient instructed on Eliminating Environmental Hazards: Keep pathways clear, Keep pets out of pathways, Keep rooms and walkways well lit, Wear supportive shoes or non-skid socks and Keep frequently used items within reach Instruct on pain and instruct on strategies to control pain Problem:Pain Goal:Manage Pain Completed patient instructed on techniques to control pain including Pharmacological measures and Non-Pharmacological measures; rest, positioning/elevation, mobility/therapeutic exercise, distraction, breathing/relaxation and use of DME/assistive devices. Monitor lower extremities for skin lesions and educate on proper foot care Problem:Diabetic Foot Care Goal:Manage diabetic foot care Completed patient instructed on diabetic foot care including daily skin inspection, wearing proper footwear/avoiding going barefoot, wash/dry feet thoroughly, applying moisturizer, avoiding between toes and toenail care. Instruct on fire safety and safe and effective use of oxygen in the home Problem:Oxygen Goal:Manage oxygen Completed patient instructed on: findings of safety risk assessment, causes of fires, firerisks for neighboring residences and buildings, precautions that can prevent fire-related injuries, oxygen safety as outlined in Home Care Patient Handbook and recommendations for specific safety risks identified in the home: maintenance of working smoke detectors and changing batteries, establishment of fire escape plan, telephone accessibility and implementation of no-smoking policy in home, including e-cigarettes and posting of No-Smoking signs on entrance doors patient demonstrate compliance with safety recommendations. Opioids- educated on high risk medication Problem:High Risk Medications Goal:Patient/caregive r will teach back high risk medication side effect and precaution education Completed patient educated on taking medication(s) as prescribed by provider. Do not stop medication or alter doses without speaking with your provider. Discuss medication effectiveness or side effect concerns with your provider and home care team. Only take opioids as prescribed, do not share your medications, and take proper precautions in storing and properly disposing of opioids once no longer needed. Possible side effects of opioid medication including sedation, decreased rate of breathing, and constipation. Report over sedation to prescribing provider and practice deep breathing techniques every hour while awake. Prevent constipation by increasing water and fiber intake, increasing activity as tolerated, and use stool softener(s) as prescribed. Hypoglycemic (including insulin)- educated on high risk medication Problem:High Risk Medications Goal:Patient/caregive r will teach back high risk medication side effect and precaution education Completed patient educated on taking medication(s) as prescribed by provider. Do not stop medication or skip/alter doses without speaking with your provider. Discuss medication effectiveness or side effect concerns with your provider and home care team. Check blood sugars and keep log as ordered by provider. Monitor for side effects of hypoglycemia such as increased weakness or shaking, moist skin, sweating, fast heartbeat, dizziness, sudden hunger, confusion, pale skin, numbness in mouth or tongue, irritability, nervousness, unsteadiness, nightmares, bad dreams, and restless sleep. Checking your blood sugar routinely and eating a consistent diabetic diet can help regulate blood sugars and reduce side effects. Antiplatelet- educated on high risk medication Problem:High Risk Medications Goal:Patient/caregive r will teach back high risk medication side effect and precaution education Completed patient educated on taking medication(s) as prescribed by provider. Do not stop medication or alter doses without speaking with your provider. Discuss medication effectiveness or side effect concerns with your provider and home care team. Discuss all medications you are taking, even [id number]-[id number] medicines, with your provider and pharmacist since many drugs can interact with antiplatelet medications. If you forget to take a dose, DO NOT take a double dose. Take the missed dose as soon as possible on the same day. DO NOT take a double dose the next day to make up for the missed dose. Watch for signs of abnormal or excessive bleeding and bruising (refer to Bleeding Precautions education). Call your health care provider right away if you suspect something is wrong. Antibiotic- educated on high risk medication Problem:High Risk Medications Goal:Patient/caregive r will teach back high risk medication side effect and precaution education Completed patient educated on taking medication(s) as prescribed by provider. Do not stop medication or alter doses without speaking with your provider. Discuss medication effectiveness or side effect concerns with your provider and home care team. Take the full dispensed amount even if you start feeling better, as bacteria can become resistant to antibiotic treatment if you do not finish your prescription. Common side effects are upset stomach and diarrhea. Take your antibiotics with food unless otherwise indicated to help with indigestion. Taking an sodu-idp-cijbkzr probiotic or eating yogurt with live and active cultures three times a day can help prevent antibiotic-associated diarrhea. Call your provider immediately if you develop rashes or hives as this could be a delayed allergic reaction. Seek emergency treatment if you develop severe allergic reaction symptoms such as mouth or tongue swelling. Instruct on ongoing discharge plan Problem:Discharge Goal:Manage discharge planning Completed Ongoing Discharge plan: Discharge plan discussed with patient including frequency and duration for home SN and plan for transition to: caregiver assistance. Assess and instruct on measures to reduce edema Problem:SN Edema Goal:Patient will have improved edema management Completed patient instructed on elevation, compression, diet, medication compliance and benefits of activity. Instruct on diabetes disease process and management of chronic condition Description: Patient has needs for education of diabetes. Problem:SN Diabetes Goal:Improved management of diabetes Completed patient assessed and reinforced on diabetes disease process, diet education, how to carb count, recogonizing s/s of hypoglycemia and hyperglycemia and managing sick days as found in the diabetes self-care booklets. Instruct on cardiovascular disease process and management of condition Description: Patient has following cardiac diagnosis(es): CAD. Problem:SN Cardiovascular Condition Goal:Improved management of cardiovascular disease Completed patient instructed on cardiac disease process, self monitoring & symptom reporting and Cardiac Diet. Instruct and educate on knowledge deficits Problem:SN Learning Assessment Goal:Demonstrate understanding of education Completed patient verbalize and/or demonstrate understanding of nursing education completed today. Education methods include: verbal cues. Further education required to improve knowledge and compliance with cardiac disease management, diabetic care management, fall prevention/home safety strategies and incision/wound care management. Maintenance COPD Description: Reinforce Acute and Sub-acute management education. Instruct on review zone sheet, nutrition in relation to COPD management, energy conservation, pacing activities, independence in ADLs vs what caregiver should be helping with, home exercise, additional COPD resources available like chronic care clinics as found in the COPD binder. Problem:SN COPD Goal:Improved management of COPD Completed Reinforced Acute and Sub-acute management education. patient reinforced on nutrition in relation to COPD management and energy conservation pacing activities and Romeo in ADLs vs what caregiver should be helping with as found in the COPD binder. Instruct patient/caregiver healing process and management measures to promote healing and avoid complications Problem:SN Integumentary/Wounds Goal:Patient/Caregive r will have improved healing and be free of signs and symptoms of complications Completed patient instructed on the following: healing process, signs and symptoms of infection, importance of good nutrition, importance of managing blood sugars, smoking cessation and when to report symptoms. Instruct Patient/Caregiver on wound/incision care procedure as ordered by physician Description: L gluteal abscess care daily and as needed: Cleanse area in shower or with soap/water, cover with clean dry dressing and change each day and as needed for drainage. Continue this until no drainage present on dressing. Problem:SN Integumentary/Wounds Goal:Patient/Caregive r will have improved healing and be free of signs and symptoms of complications Completed patient instructed on wound care as ordered by Physician. Wound Care: Perform wound care (2) Description: Wound Care Order: Wound location: left buttocks Wound type (etiology): abcess Order: cleanse with NS pat dry pack with idoforme packing. cover with dry dressing Frequency: 3xweek and PRN for soiled Wound care to be completed by patient except for scheduled SN wound care visits. Measure wound/incision at least weekly. Okay to substitute comparable products from home care formulary. Problem:SN Integumentary/Wounds Goal:Patient/Caregive r will have improved healing and be free of signs and symptoms of complications Completed Complete Wound Care: Perform wound care (4) Description: Wound Care Order: Wound location: right inner thigh Wound type (etiology): Boil Order: cleanse with mild soap and water rinse pat dry pack with idoform packing and cover with dry dressing Frequency: 3xweek Wound care to be completed by patient except for scheduled SN wound care visits. Measure wound/incision at least weekly. Okay to substitute comparable products from home care formulary. Problem:SN Integumentary/Wounds Goal:Patient/Caregive r will have improved healing and be free of signs and symptoms of complications Completed Completed by Pt. Patient did tolerate well. Continued need for Home Care Services Description: POC and certification renewed due to continuing [facility] needs. Problem:Recertificati on Goal:Ongoing review of POC and need for skilled services Completed Wound Care: Perform wound care (5) Description: Wound Care Order: Wound location: left inner upper thigh Wound type (etiology): Boil Order: Cleanse with mild soap and water or chlorihexadine rinse pat dry pack wound with calcium alginate siver rope, cover with dry clean dressing. Frequency: 3x week and as needed for soiled Wound care to be completed by patient except for scheduled SN wound care visits. Measure wound/incision at least weekly. Okay to substitute comparable products from home care formulary. Problem:SN Integumentary/Wounds Goal:Patient/Caregive r will have improved healing and be free of signs and symptoms of complications Completed Completed by Pt. Patient did tolerate well. [facility] Visit Details Visit Type -SN ROUTINE Discipline -Half-Way Problems Problem Description Start Date Status Goals Interve ntions Medication Education Disciplines: Skilled Services 08/20/2022 Active 1 goal linked to scheduled/documen pawan intervention 1 goal intervention scheduled/document ed in this visit Sepsis Disciplines: Skilled Services 08/20/2022 Active 1 goal linked to scheduled/documen pawan intervention 1 goal intervention scheduled/document ed in this visit Physician Specific Parameters Disciplines: Skilled Services 08/20/2022 Active 1 goal linked to scheduled/documen pawan intervention 1 goal intervention scheduled/document ed in this visit Risk for Falls Disciplines: Skilled Services 08/20/2022 Active 1 goal linked to scheduled/documen pawan intervention 1 goal intervention scheduled/document ed in this visit Pain Disciplines: Skilled Services 08/20/2022 Active 1 goal linked to scheduled/documen pawan intervention 1 goal intervention scheduled/document ed in this visit Diabetic Foot Care Disciplines: Skilled Services 08/20/2022 Active 1 goal linked to scheduled/documen pawan intervention 1 goal intervention scheduled/document ed in this visit Oxygen Disciplines: Skilled Services 08/20/2022 Active 1 goal linked to scheduled/documen pawan intervention 1 goal intervention scheduled/document ed in this visit High Risk Medications Disciplines: Skilled Services 08/20/2022 Active 1 goal linked to scheduled/documen pawan intervention 4 goal interventions scheduled/document ed in this visit Discharge Disciplines: Skilled Services 08/20/2022 Active 1 goal linked to scheduled/documen pawan intervention 1 goal intervention scheduled/document ed in this visit SN Edema Disciplines: SN 08/20/2022 Active 1 goal linked to scheduled/documen pawan intervention 1 goal intervention scheduled/document ed in this visit SN Diabetes Disciplines: SN 08/20/2022 Active 1 goal linked to scheduled/documen pawan intervention 1 goal intervention scheduled/document ed in this visit SN Cardiovascular Condition Disciplines: SN 08/20/2022 Active 1 goal linked to scheduled/documen pawan intervention 1 goal intervention scheduled/document ed in this visit SN Learning Assessment Disciplines: SN 08/20/2022 Active 1 goal linked to scheduled/documen pawan intervention 1 goal intervention scheduled/document ed in this visit SN COPD Disciplines: SN 09/22/2022 Active 1 goal linked to scheduled/documen pawan intervention 1 goal intervention scheduled/document ed in this visit SN Integumentary/Wound s Disciplines: SN 11/09/2022 Active 1 goal linked to scheduled/documen pawan intervention 2 goal interventions scheduled/document ed in this visit SN Integumentary/Wound s Disciplines: SN 11/27/2022 Active 1 goal linked to scheduled/documen pawan intervention 1 goal intervention scheduled/document ed in this visit Recertification Disciplines: Skilled Services 12/17/2022 Active 1 goal linked to scheduled/documen pawan intervention 1 goal intervention scheduled/document ed in this visit SN Integumentary/Wound s Disciplines: SN 01/14/2023 Active 1 goal linked to scheduled/documen pawan intervention 1 goal intervention scheduled/document ed in this visit Goals Goal Associated Problem Outcome Goal Met? Visit Notes Patient/caregiver will demonstrate ability to obtain, store, identify and administer ordered medications, keep accurate medication list in home, and adhere to medication schedule Description: Patient/caregiver will demonstrate ability to obtain, store, identify and administer ordered medications, keep accurate medication list in home, and adhere to medication schedule by 02-15-23. Medication Education No Patient/caregiver will be able to identify and report symptoms of sepsis Description: Patient/caregiver will be able to identify signs/symptoms of sepsis infection and will verbalize actions to take if suspected by 02-15-23. Sepsis No Patient to maintain parameters within physician-specified ranges throughout certification period Physician Specific Parameters No Manage Risk for falls Description: Patient/caregiver will verbalize knowledge of individualized fall prevention strategies by 02-15-23. Risk for Falls No Manage Pain Description: Patient/caregiver will verbalize knowledge and understanding of appropriate techniques to control pain, including pain medication and non-pharmacological techniques. Patient will verbalize or demonstrate an acceptable level of pain as evidenced by a pain score of 0-3/10 and improvement in ability to perform activities of daily living to be achieved by 02-15-23. Pain No Manage diabetic foot care Description: Patient/caregiver will demonstrate basic understanding of and compliance with diabetic self-care management as evidenced by verbalizing purpose of daily foot care and assessment by 02-15-23. Diabetic Foot Care No Manage oxygen Description: Patient/caregiver will use oxygen safely and effectively in home by verbalizing and demonstrating oxygen safety by 02-15-23. Oxygen No Patient/caregiver will teach back high risk medication side effect and precaution education High Risk Medications No Manage discharge planning Description: Patient/caregiver will verbalize understanding of ongoing discharge plan provided related to disease management, arrangements for outpatient and/or community services, obtaining medications, supplies, and DME, as needed throughout certification period. Discharge No Patient will have improved edema management Description: Patient/caregiver will demonstrate an understanding of edema management strategies as evidenced by resolution or stabilization of edema by 02-15-23. SN Edema No Improved management of diabetes Description: Improve diabetic management as evidenced by patient/caregiver able to teach back diabetic management strategies by 02-15-23. SN Diabetes No Improved management of cardiovascular disease Description: Improve patient/caregiver management of cardiac disease as evidenced by patient/caregiver ability to teach back cardiac management strategies by 02-15-23. SN Cardiovascular Condition No Demonstrate understanding of education Description: Patient and/or caregiver will verbalize understanding of educational instruction provided throughout certification period. SN Learning Assessment No Improved management of COPD Description: Improve COPD management as evidenced by decreased reports of dyspnea, medication compliance, and patient able to teach back strategies to manage condition. Goal to be achieved by 02-15-23 SN COPD No Patient/Caregiver will have improved healing and be free of signs and symptoms of complications Description: Patient/caregiver will verbalize management strategies to promote wound healing & prevent complications as evidenced by improved healing & no complications by 02-15-23. SN Integumentary/Wounds No Patient/Caregiver will have improved healing and be free of signs and symptoms of complications Description: Patient/caregiver will verbalize management strategies to promote wound healing & prevent complications as evidenced by improved healing & no complications by 02-15-23. SN Integumentary/Wounds No Ongoing review of POC and need for skilled services Recertification No Patient/Caregiver will have improved healing and be free of signs and symptoms of complications Description: Patient/caregiver will verbalize management strategies to promote wound healing & prevent complications as evidenced by improved healing & no complications by 02-15-23. SN Integumentary/Wounds No Interventions Intervention Associated Problem/Goal Status Variance Visit Notes Medication Education Description: Evaluate/instruct patient/caregiver on obtaining, storing, identifying and administering ordered medications as well as keeping accurate medication list in the home and adhereing to medication schedule Problem:Medication Education Goal:Patient/caregive r will demonstrate ability to obtain, store, identify and administer ordered medications, keep accurate medication list in home, and adhere to medication schedule Completed Patient instructed on importance of keeping accurate medication list in home, adhering to medication schedule and proper storage of medications. Risk of Sepsis Description: Patient is at risk for sepsis. Monitor closely for s/s of sepsis. Problem:Sepsis Goal:Patient/caregive r will be able to identify and report symptoms of sepsis Completed SPO2 Description: Notify if pulse ox is <92% at rest. Problem:Physician Specific Parameters Goal:Patient to maintain parameters within physician-specified ranges throughout certification period Completed Instruct on individual fall risk factors and strategies to prevent falls and injuries caused by falls. Problem:Risk for Falls Goal:Manage Risk for falls Completed SN: Patient instructed on Eliminating Environmental Hazards: Keep pathways clear, Keep pets out of pathways, Keep rooms and walkways well lit, Wear supportive shoes or non-skid socks and Keep frequently used items within reach Instruct on pain and instruct on strategies to control pain Problem:Pain Goal:Manage Pain Completed patient instructed on techniques to control pain including Pharmacological measures and Non-Pharmacological measures; rest, positioning/elevation, mobility/therapeutic exercise and distraction. Monitor lower extremities for skin lesions and educate on proper foot care Problem:Diabetic Foot Care Goal:Manage diabetic foot care Completed patient instructed on diabetic foot care including daily skin inspection, wearing proper footwear/avoiding going barefoot, wash/dry feet thoroughly and applying moisturizer, avoiding between toes. Instruct on fire safety and safe and effective use of oxygen in the home Problem:Oxygen Goal:Manage oxygen Completed patient instructed on: findings of safety risk assessment, causes of fires, firerisks for neighboring residences and buildings, precautions that can prevent fire-related injuries, oxygen safety as outlined in Home Care Patient Handbook and recommendations for specific safety risks identified in the home: maintenance of working smoke detectors and changing batteries, establishment of fire escape plan, telephone accessibility and implementation of no-smoking policy in home, including e-cigarettes and posting of No-Smoking signs on entrance doors patient demonstrate compliance with safety recommendations. Opioids- educated on high risk medication Problem:High Risk Medications Goal:Patient/caregive r will teach back high risk medication side effect and precaution education Completed patient educated on taking medication(s) as prescribed by provider. Do not stop medication or alter doses without speaking with your provider. Discuss medication effectiveness or side effect concerns with your provider and home care team. Only take opioids as prescribed, do not share your medications, and take proper precautions in storing and properly disposing of opioids once no longer needed. Possible side effects of opioid medication including sedation, decreased rate of breathing, and constipation. Report over sedation to prescribing provider and practice deep breathing techniques every hour while awake. Prevent constipation by increasing water and fiber intake, increasing activity as tolerated, and use stool softener(s) as prescribed. Hypoglycemic (including insulin)- educated on high risk medication Problem:High Risk Medications Goal:Patient/caregive r will teach back high risk medication side effect and precaution education Completed patient educated on taking medication(s) as prescribed by provider. Do not stop medication or skip/alter doses without speaking with your provider. Discuss medication effectiveness or side effect concerns with your provider and home care team. Check blood sugars and keep log as ordered by provider. Monitor for side effects of hypoglycemia such as increased weakness or shaking, moist skin, sweating, fast heartbeat, dizziness, sudden hunger, confusion, pale skin, numbness in mouth or tongue, irritability, nervousness, unsteadiness, nightmares, bad dreams, and restless sleep. Checking your blood sugar routinely and eating a consistent diabetic diet can help regulate blood sugars and reduce side effects. Antiplatelet- educated on high risk medication Problem:High Risk Medications Goal:Patient/caregive r will teach back high risk medication side effect and precaution education Completed patient educated on taking medication(s) as prescribed by provider. Do not stop medication or alter doses without speaking with your provider. Discuss medication effectiveness or side effect concerns with your provider and home care team. Discuss all medications you are taking, even psos-exm-poteagw medicines, with your provider and pharmacist since many drugs can interact with antiplatelet medications. If you forget to take a dose, DO NOT take a double dose. Take the missed dose as soon as possible on the same day. DO NOT take a double dose the next day to make up for the missed dose. Watch for signs of abnormal or excessive bleeding and bruising (refer to Bleeding Precautions education). Call your health care provider right away if you suspect something is wrong. Antibiotic- educated on high risk medication Problem:High Risk Medications Goal:Patient/caregive r will teach back high risk medication side effect and precaution education Completed patient educated on taking medication(s) as prescribed by provider. Do not stop medication or alter doses without speaking with your provider. Discuss medication effectiveness or side effect concerns with your provider and home care team. Take the full dispensed amount even if you start feeling better, as bacteria can become resistant to antibiotic treatment if you do not finish your prescription. Common side effects are upset stomach and diarrhea. Take your antibiotics with food unless otherwise indicated to help with indigestion. Taking an kirw-jys-dqypiqw probiotic or eating yogurt with live and active cultures three times a day can help prevent antibiotic-associated diarrhea. Call your provider immediately if you develop rashes or hives as this could be a delayed allergic reaction. Seek emergency treatment if you develop severe allergic reaction symptoms such as mouth or tongue swelling. Instruct on ongoing discharge plan Problem:Discharge Goal:Manage discharge planning Completed Ongoing Discharge plan: Discharge plan discussed with patient including frequency and duration for home SN and plan for transition to: caregiver assistance. Assess and instruct on measures to reduce edema Problem:SN Edema Goal:Patient will have improved edema management Completed patient instructed on elevation, compression, diet, medication compliance and benefits of activity. Instruct on diabetes disease process and management of chronic condition Description: Patient has needs for education of diabetes. Problem:SN Diabetes Goal:Improved management of diabetes Completed patient assessed and reinforced on diabetes disease process, diet education, how to carb count and recogonizing s/s of hypoglycemia and hyperglycemia as found in the diabetes self-care booklets. Instruct on cardiovascular disease process and management of condition Description: Patient has following cardiac diagnosis(es): CAD. Problem:SN Cardiovascular Condition Goal:Improved management of cardiovascular disease Completed patient instructed on cardiac disease process, self monitoring & symptom reporting and Cardiac Diet. Instruct and educate on knowledge deficits Problem:SN Learning Assessment Goal:Demonstrate understanding of education Completed patient verbalize and/or demonstrate understanding of nursing education completed today. Education methods include: tactile cues. Further education required to improve knowledge and compliance with cardiac disease management, diabetic care management, fall prevention/home safety strategies, incision/wound care management, pain management and pulmonary disease management. Maintenance COPD Description: Reinforce Acute and Sub-acute management education. Instruct on review zone sheet, nutrition in relation to COPD management, energy conservation, pacing activities, independence in ADLs vs what caregiver should be helping with, home exercise, additional COPD resources available like chronic care clinics as found in the COPD binder. Problem:SN COPD Goal:Improved management of COPD Completed Reinforced Acute and Sub-acute management education. patient reinforced on zone sheet, nutrition in relation to COPD management and energy conservation pacing activities and Romeo in ADLs vs what caregiver should be helping with as found in the COPD binder. Instruct patient/caregiver healing process and management measures to promote healing and avoid complications Problem:SN Integumentary/Wounds Goal:Patient/Caregive r will have improved healing and be free of signs and symptoms of complications Completed patient instructed on the following: healing process, signs and symptoms of infection, importance of good nutrition, importance of managing blood sugars, smoking cessation and when to report symptoms. Instruct Patient/Caregiver on wound/incision care procedure as ordered by physician Description: L gluteal abscess care daily and as needed: Cleanse area in shower or with soap/water, cover with clean dry dressing and change each day and as needed for drainage. Continue this until no drainage present on dressing. Problem:SN Integumentary/Wounds Goal:Patient/Caregive r will have improved healing and be free of signs and symptoms of complications Completed patient instructed on wound care as ordered by Physician. Wound Care: Perform wound care (4) Description: Wound Care Order: Wound location: right inner thigh Wound type (etiology): Boil Order: cleanse with mild soap and water rinse pat dry pack with idoform packing and cover with dry dressing Frequency: 3xweek Wound care to be completed by patient except for scheduled SN wound care visits. Measure wound/incision at least weekly. Okay to substitute comparable products from home care formulary. Problem:SN Integumentary/Wounds Goal:Patient/Caregive r will have improved healing and be free of signs and symptoms of complications Completed Completed by SN. Patient did tolerate well. Continued need for Home Care Services Description: POC and certification renewed due to continuing [facility] needs. Problem:Recertificati on Goal:Ongoing review of POC and need for skilled services Completed Wound Care: Perform wound care (5) Description: Wound Care Order: Wound location: left inner upper thigh Wound type (etiology): Boil Order: Cleanse with mild soap and water or chlorihexadine rinse pat dry pack wound with calcium alginate siver rope, cover with dry clean dressing. Frequency: 3x week and as needed for soiled Wound care to be completed by patient except for scheduled SN wound care visits. Measure wound/incision at least weekly. Okay to substitute comparable products from home care formulary. Problem:SN Integumentary/Wounds Goal:Patient/Caregive r will have improved healing and be free of signs and symptoms of complications Completed Completed by SN. Patient did tolerate well. [facility] Visit Details Visit Type -SN ROUTINE Discipline -Half-Way Problems Problem Description Start Date Status Goals Interve ntions Medication Education Disciplines: Skilled Services 08/20/2022 Active 1 goal linked to scheduled/docume nted intervention 1 goal intervention scheduled/documen pawan in this visit Sepsis Disciplines: Skilled Services 08/20/2022 Active 1 goal linked to scheduled/docume nted intervention 1 goal intervention scheduled/documen pawan in this visit Physician Specific Parameters Disciplines: Skilled Services 08/20/2022 Active 1 goal linked to scheduled/docume nted intervention 1 goal intervention scheduled/documen pawan in this visit Risk for Falls Disciplines: Skilled Services 08/20/2022 Active 1 goal linked to scheduled/docume nted intervention 1 goal intervention scheduled/documen pawan in this visit Pain Disciplines: Skilled Services 08/20/2022 Active 1 goal linked to scheduled/docume nted intervention 1 goal intervention scheduled/documen pawan in this visit Diabetic Foot Care Disciplines: Skilled Services 08/20/2022 Active 1 goal linked to scheduled/docume nted intervention 1 goal intervention scheduled/documen pawan in this visit Oxygen Disciplines: Skilled Services 08/20/2022 Active 1 goal linked to scheduled/docume nted intervention 1 goal intervention scheduled/documen pawan in this visit High Risk Medications Disciplines: Skilled Services 08/20/2022 Active 1 goal linked to scheduled/docume nted intervention 4 goal interventions scheduled/documen pawan in this visit Discharge Disciplines: Skilled Services 08/20/2022 Active 1 goal linked to scheduled/docume nted intervention 1 goal intervention scheduled/documen pawan in this visit SN Cardiovascular Condition Disciplines: SN 08/20/2022 Active 1 goal linked to scheduled/docume nted intervention 1 goal intervention scheduled/documen pawan in this visit SN COPD Disciplines: SN 09/22/2022 Active 1 goal linked to scheduled/docume nted intervention 2 goal interventions scheduled/documen pawan in this visit SN Integumentary/Wound s Disciplines: SN 11/09/2022 Resolved on 02/04/2023 1 goal linked to scheduled/docume nted intervention SN Integumentary/Wound s Disciplines: SN 11/11/2022 Resolved on 02/04/2023 1 goal linked to scheduled/docume nted intervention SN Integumentary/Wound s Disciplines: SN 11/27/2022 Resolved on 02/04/2023 1 goal linked to scheduled/docume nted intervention Recertification Disciplines: Skilled Services 12/17/2022 Active 1 goal linked to scheduled/docume nted intervention 1 goal intervention scheduled/documemaximiliano villalta in this visit SN Integumentary/Wound s Disciplines: SN 01/14/2023 Resolved on 02/04/2023 1 goal linked to scheduled/docume nted intervention Goals Goal Associated Problem Outcome Goal Met? Visit Notes Patient/caregiver will demonstrate ability to obtain, store, identify and administer ordered medications, keep accurate medication list in home, and adhere to medication schedule Description: Patient/caregiver will demonstrate ability to obtain, store, identify and administer ordered medications, keep accurate medication list in home, and adhere to medication schedule by 02-15-23. Medication Education No Patient/caregiver will be able to identify and report symptoms of sepsis Description: Patient/caregiver will be able to identify signs/symptoms of sepsis infection and will verbalize actions to take if suspected by 02-15-23. Sepsis No Patient to maintain parameters within physician-specified ranges throughout certification period Physician Specific Parameters No Manage Risk for falls Description: Patient/caregiver will verbalize knowledge of individualized fall prevention strategies by 02-15-23. Risk for Falls No Manage Pain Description: Patient/caregiver will verbalize knowledge and understanding of appropriate techniques to control pain, including pain medication and non-pharmacological techniques. Patient will verbalize or demonstrate an acceptable level of pain as evidenced by a pain score of 0-3/10 and improvement in ability to perform activities of daily living to be achieved by 02-15-23. Pain No Manage diabetic foot care Description: Patient/caregiver will demonstrate basic understanding of and compliance with diabetic self-care management as evidenced by verbalizing purpose of daily foot care and assessment by 02-15-23. Diabetic Foot Care No Manage oxygen Description: Patient/caregiver will use oxygen safely and effectively in home by verbalizing and demonstrating oxygen safety by 02-15-23. Oxygen No Patient/caregiver will teach back high risk medication side effect and precaution education High Risk Medications No Manage discharge planning Description: Patient/caregiver will verbalize understanding of ongoing discharge plan provided related to disease management, arrangements for outpatient and/or community services, obtaining medications, supplies, and DME, as needed throughout certification period. Discharge No Improved management of cardiovascular disease Description: Improve patient/caregiver management of cardiac disease as evidenced by patient/caregiver ability to teach back cardiac management strategies by 02-15-23. SN Cardiovascular Condition No Improved management of COPD Description: Improve COPD management as evidenced by decreased reports of dyspnea, medication compliance, and patient able to teach back strategies to manage condition. Goal to be achieved by 02-15-23 SN COPD No Patient/Caregiver will have improved healing and be free of signs and symptoms of complications Description: Patient/caregiver will verbalize management strategies to promote wound healing & prevent complications as evidenced by improved healing & no complications by 02-15-23. SN Integumentary/Wounds Completed Yes Patient/Caregiver will have improved healing and be free of signs and symptoms of complications Description: Patient/caregiver will verbalize management strategies to promote wound healing & prevent complications as evidenced by improved healing & no complications by 02-15-23. SN Integumentary/Wounds Completed Yes Patient/Caregiver will have improved healing and be free of signs and symptoms of complications Description: Patient/caregiver will verbalize management strategies to promote wound healing & prevent complications as evidenced by improved healing & no complications by 02-15-23. SN Integumentary/Wounds Completed Yes Ongoing review of POC and need for skilled services Recertification No Patient/Caregiver will have improved healing and be free of signs and symptoms of complications Description: Patient/caregiver will verbalize management strategies to promote wound healing & prevent complications as evidenced by improved healing & no complications by 02-15-23. SN Integumentary/Wounds Completed Yes Interventions Intervention Associated Problem/Goal Status Variance Visit Notes Medication Education Description: Evaluate/instruct patient/caregiver on obtaining, storing, identifying and administering ordered medications as well as keeping accurate medication list in the home and adhereing to medication schedule Problem:Medication Education Goal:Patient/caregive r will demonstrate ability to obtain, store, identify and administer ordered medications, keep accurate medication list in home, and adhere to medication schedule Completed Patient instructed on importance of keeping accurate medication list in home, adhering to medication schedule and proper storage of medications. Risk of Sepsis Description: Patient is at risk for sepsis. Monitor closely for s/s of sepsis. Problem:Sepsis Goal:Patient/caregive r will be able to identify and report symptoms of sepsis Completed SPO2 Description: Notify if pulse ox is <92% at rest. Problem:Physician Specific Parameters Goal:Patient to maintain parameters within physician-specified ranges throughout certification period Completed Instruct on individual fall risk factors and strategies to prevent falls and injuries caused by falls. Problem:Risk for Falls Goal:Manage Risk for falls Completed SN: Patient instructed on Eliminating Environmental Hazards: Keep pathways clear, Keep pets out of pathways, Keep rooms and walkways well lit, Wear supportive shoes or non-skid socks and Keep frequently used items within reach Instruct on pain and instruct on strategies to control pain Problem:Pain Goal:Manage Pain Completed patient instructed on techniques to control pain including Pharmacological measures and Non-Pharmacological measures; rest, positioning/elevation, distraction and breathing/relaxation. Monitor lower extremities for skin lesions and educate on proper foot care Problem:Diabetic Foot Care Goal:Manage diabetic foot care Completed patient instructed on diabetic foot care including daily skin inspection, wearing proper footwear/avoiding going barefoot, wash/dry feet thoroughly, applying moisturizer, avoiding between toes and toenail care. Instruct on fire safety and safe and effective use of oxygen in the home Problem:Oxygen Goal:Manage oxygen Completed patient instructed on: findings of safety risk assessment, causes of fires, firerisks for neighboring residences and buildings, precautions that can prevent fire-related injuries, oxygen safety as outlined in Home Care Patient Handbook and recommendations for specific safety risks identified in the home: maintenance of working smoke detectors and changing batteries, establishment of fire escape plan, telephone accessibility and implementation of no-smoking policy in home, including e-cigarettes and posting of No-Smoking signs on entrance doors patient demonstrate compliance with safety recommendations. Opioids- educated on high risk medication Problem:High Risk Medications Goal:Patient/caregive r will teach back high risk medication side effect and precaution education Completed patient educated on taking medication(s) as prescribed by provider. Do not stop medication or alter doses without speaking with your provider. Discuss medication effectiveness or side effect concerns with your provider and home care team. Only take opioids as prescribed, do not share your medications, and take proper precautions in storing and properly disposing of opioids once no longer needed. Possible side effects of opioid medication including sedation, decreased rate of breathing, and constipation. Report over sedation to prescribing provider and practice deep breathing techniques every hour while awake. Prevent constipation by increasing water and fiber intake, increasing activity as tolerated, and use stool softener(s) as prescribed. Hypoglycemic (including insulin)- educated on high risk medication Problem:High Risk Medications Goal:Patient/caregive r will teach back high risk medication side effect and precaution education Completed patient educated on taking medication(s) as prescribed by provider. Do not stop medication or skip/alter doses without speaking with your provider. Discuss medication effectiveness or side effect concerns with your provider and home care team. Check blood sugars and keep log as ordered by provider. Monitor for side effects of hypoglycemia such as increased weakness or shaking, moist skin, sweating, fast heartbeat, dizziness, sudden hunger, confusion, pale skin, numbness in mouth or tongue, irritability, nervousness, unsteadiness, nightmares, bad dreams, and restless sleep. Checking your blood sugar routinely and eating a consistent diabetic diet can help regulate blood sugars and reduce side effects. Antiplatelet- educated on high risk medication Problem:High Risk Medications Goal:Patient/caregive r will teach back high risk medication side effect and precaution education Completed patient educated on taking medication(s) as prescribed by provider. Do not stop medication or alter doses without speaking with your provider. Discuss medication effectiveness or side effect concerns with your provider and home care team. Discuss all medications you are taking, even juen-wyc-pypnoii medicines, with your provider and pharmacist since many drugs can interact with antiplatelet medications. If you forget to take a dose, DO NOT take a double dose. Take the missed dose as soon as possible on the same day. DO NOT take a double dose the next day to make up for the missed dose. Watch for signs of abnormal or excessive bleeding and bruising (refer to Bleeding Precautions education). Call your health care provider right away if you suspect something is wrong. Antibiotic- educated on high risk medication Problem:High Risk Medications Goal:Patient/caregive r will teach back high risk medication side effect and precaution education Completed patient educated on taking medication(s) as prescribed by provider. Do not stop medication or alter doses without speaking with your provider. Discuss medication effectiveness or side effect concerns with your provider and home care team. Take the full dispensed amount even if you start feeling better, as bacteria can become resistant to antibiotic treatment if you do not finish your prescription. Common side effects are upset stomach and diarrhea. Take your antibiotics with food unless otherwise indicated to help with indigestion. Taking an joyh-smn-twxkjkx probiotic or eating yogurt with live and active cultures three times a day can help prevent antibiotic-associated diarrhea. Call your provider immediately if you develop rashes or hives as this could be a delayed allergic reaction. Seek emergency treatment if you develop severe allergic reaction symptoms such as mouth or tongue swelling. Instruct on ongoing discharge plan Problem:Discharge Goal:Manage discharge planning Completed Ongoing Discharge plan: Discharge plan discussed with patient including frequency and duration for home SN and plan for transition to: caregiver assistance. Instruct on cardiovascular disease process and management of condition Description: Patient has following cardiac diagnosis(es): CAD. Problem:SN Cardiovascular Condition Goal:Improved management of cardiovascular disease Completed patient instructed on cardiac disease process, self monitoring & symptom reporting and Cardiac Diet. Maintenance COPD Description: Reinforce Acute and Sub-acute management education. Instruct on review zone sheet, nutrition in relation to COPD management, energy conservation, pacing activities, independence in ADLs vs what caregiver should be helping with, home exercise, additional COPD resources available like chronic care clinics as found in the COPD binder. Problem:SN COPD Goal:Improved management of COPD Completed Reinforced Acute and Sub-acute management education. patient reinforced on zone sheet, nutrition in relation to COPD management and energy conservation pacing activities, Romeo in ADLs vs what caregiver should be helping with and home exercise as found in the COPD binder. Acute COPD Description: Instruct on defintion of COPD, signs and symptoms of COPD exacerbation, use of zone sheet, use of MDIs, difference between rescue vs maintenance inhalers, use of nebulizer, smoking cessation, breathing management including pursed lip breathing, diaphragmatic breathing, positioning to reduce SOB, controlled coughing, use of incentive spirometer, and use of acapela as found in the COPD binder. Problem:SN COPD Goal:Improved management of COPD Completed patient reinforced on defintion of COPD, signs and symptoms of COPD exacerbation, use of nebulizer, smoking cessation and breathing management: pursed lip breathing, diaphragmatic breathing and positioning to reduce SOB as found in the COPD binder. Continued need for Home Care Services Description: POC and certification renewed due to continuing [facility] needs. Problem:Recertificati on Goal:Ongoing review of POC and need for skilled services Completed documented in this encounter [facility] home Plan of care note* Visit Details Visit Type -SN ROUTINE Discipline -Half-Way Problems Problem Description Start Date Status Goals Interve ntions Sepsis Disciplines: Skilled Services 08/20/2022 Active 1 goal linked to scheduled/document ed intervention 1 goal intervention scheduled/documente d in this visit Physician Specific Parameters Disciplines: Skilled Services 08/20/2022 Active 1 goal linked to scheduled/document ed intervention 1 goal intervention scheduled/documente d in this visit Diabetic Foot Care Disciplines: Skilled Services 08/20/2022 Active 1 goal linked to scheduled/document ed intervention 1 goal intervention scheduled/documente d in this visit SN COPD Disciplines: SN 09/22/2022 Active 1 goal linked to scheduled/document ed intervention 1 goal intervention scheduled/documente d in this visit Recertification Disciplines: Skilled Services 12/17/2022 Active 1 goal linked to scheduled/document ed intervention 1 goal intervention scheduled/documente d in this visit SN Labwork Disciplines: SN 02/04/2023 Active 1 goal linked to scheduled/document ed intervention 1 goal intervention scheduled/documente d in this visit Goals Goal Associated Problem Outcome Goal Met? Visit Notes Patient/caregiver will be able to identify and report symptoms of sepsis Description: Patient/caregiver will be able to identify signs/symptoms of sepsis infection and will verbalize actions to take if suspected by 02-15-23. Sepsis No Patient to maintain parameters within physician-specified ranges throughout certification period Physician Specific Parameters No Manage diabetic foot care Description: Patient/caregiver will demonstrate basic understanding of and compliance with diabetic self-care management as evidenced by verbalizing purpose of daily foot care and assessment by 02-15-23. Diabetic Foot Care No Improved management of COPD Description: Improve COPD management as evidenced by decreased reports of dyspnea, medication compliance, and patient able to teach back strategies to manage condition. Goal to be achieved by 02-15-23 SN COPD No Ongoing review of POC and need for skilled services Recertification No SN to obtain lab specimen without difficulty when ordered throughout certification period SN Labwork No Interventions Intervention Associated Problem/Goal Status Variance Visit Notes Risk of Sepsis Description: Patient is at risk for sepsis. Monitor closely for s/s of sepsis. Problem:Sepsis Goal:Patient/caregiver will be able to identify and report symptoms of sepsis Completed SPO2 Description: Notify if pulse ox is <92% at rest. Problem:Physician Specific Parameters Goal:Patient to maintain parameters within physician-specified ranges throughout certification period Completed Monitor lower extremities for skin lesions and educate on proper foot care Problem:Diabetic Foot Care Goal:Manage diabetic foot care Completed patient instructed on diabetic foot care including daily skin inspection, wearing proper footwear/avoiding going barefoot, wash/dry feet thoroughly, applying moisturizer, avoiding between toes and toenail care. Maintenance COPD Description: Reinforce Acute and Sub-acute management education. Instruct on review zone sheet, nutrition in relation to COPD management, energy conservation, pacing activities, independence in ADLs vs what caregiver should be helping with, home exercise, additional COPD resources available like chronic care clinics as found in the COPD binder. Problem:SN COPD Goal:Improved management of COPD Completed Reinforced Acute and Sub-acute management education. patient reinforced on zone sheet and energy conservation pacing activities and Romeo in ADLs vs what caregiver should be helping with as found in the COPD binder. Continued need for Home Care Services Description: POC and certification renewed due to continuing [facility] needs. Problem:Recertificatio n Goal:Ongoing review of POC and need for skilled services Completed SN to obtain blood specimen (1) Description: Draw blood via venipuncture for CBC, CMP, TSH, FREE T 4, FREE T3, SERUM IRON, CRP, VITAMIN B 12 with a frequency of once on Date: 02-06-23. Results to DR Norris. Phone/Fax number [phone]. [phone] Dx code(s): E16.2. If unable to draw blood through IV access device, may draw blood peripherally. Problem:SN Labwork Goal:SN to obtain lab specimen without difficulty when ordered throughout certification period Completed documented in this encounter [facility]'s home Plan of care note* Visit Details Visit Type -SN ROUTINE Discipline -Half-Way Problems Problem Description Start Date Status Goals Interve ntions Medication Education Disciplines: Skilled Services 08/20/2022 Active 1 goal linked to scheduled/documen pawan intervention 1 goal intervention scheduled/document ed in this visit Sepsis Disciplines: Skilled Services 08/20/2022 Active 1 goal linked to scheduled/documen pawan intervention 1 goal intervention scheduled/document ed in this visit Physician Specific Parameters Disciplines: Skilled Services 08/20/2022 Active 1 goal linked to scheduled/documen pawan intervention 1 goal intervention scheduled/document ed in this visit Risk for Falls Disciplines: Skilled Services 08/20/2022 Active 1 goal linked to scheduled/documen pawan intervention 1 goal intervention scheduled/document ed in this visit Pain Disciplines: Skilled Services 08/20/2022 Active 1 goal linked to scheduled/documen pawan intervention 1 goal intervention scheduled/document ed in this visit Diabetic Foot Care Disciplines: Skilled Services 08/20/2022 Active 1 goal linked to scheduled/documen pawan intervention 1 goal intervention scheduled/document ed in this visit Oxygen Disciplines: Skilled Services 08/20/2022 Active 1 goal linked to scheduled/documen pawan intervention 1 goal intervention scheduled/document ed in this visit High Risk Medications Disciplines: Skilled Services 08/20/2022 Active 1 goal linked to scheduled/documen pawan intervention 4 goal interventions scheduled/document ed in this visit Discharge Disciplines: Skilled Services 08/20/2022 Active 1 goal linked to scheduled/documen pawan intervention 1 goal intervention scheduled/document ed in this visit SN Edema Disciplines: SN 08/20/2022 Active 1 goal linked to scheduled/documen pawan intervention 1 goal intervention scheduled/document ed in this visit SN Diabetes Disciplines: SN 08/20/2022 Active 1 goal linked to scheduled/documen pawan intervention 1 goal intervention scheduled/document ed in this visit SN Cardiovascular Condition Disciplines: SN 08/20/2022 Active 1 goal linked to scheduled/documen pawan intervention 1 goal intervention scheduled/document ed in this visit SN Learning Assessment Disciplines: SN 08/20/2022 Active 1 goal linked to scheduled/documen pawan intervention 1 goal intervention scheduled/document ed in this visit SN COPD Disciplines: 09/22/2022 Active 1 goal linked to scheduled/documen pawan intervention 2 goal interventions scheduled/document ed in this visit Recertification Disciplines: Skilled Services 12/17/2022 Active 1 goal linked to scheduled/documen pawan intervention 1 goal intervention scheduled/document ed in this visit SN Integumentary/Wound s Disciplines: 02/04/2023 Active 1 goal linked to scheduled/documen pawan intervention 5 goal interventions scheduled/document ed in this visit Goals Goal Associated Problem Outcome Goal Met? Visit Notes Patient/caregiver will demonstrate ability to obtain, store, identify and administer ordered medications, keep accurate medication list in home, and adhere to medication schedule Description: Patient/caregiver will demonstrate ability to obtain, store, identify and administer ordered medications, keep accurate medication list in home, and adhere to medication schedule by 02-15-23. Medication Education No Patient/caregiver will be able to identify and report symptoms of sepsis Description: Patient/caregiver will be able to identify signs/symptoms of sepsis infection and will verbalize actions to take if suspected by 02-15-23. Sepsis No Patient to maintain parameters within physician-specified ranges throughout certification period Physician Specific Parameters No Manage Risk for falls Description: Patient/caregiver will verbalize knowledge of individualized fall prevention strategies by 02-15-23. Risk for Falls No Manage Pain Description: Patient/caregiver will verbalize knowledge and understanding of appropriate techniques to control pain, including pain medication and non-pharmacological techniques. Patient will verbalize or demonstrate an acceptable level of pain as evidenced by a pain score of 0-3/10 and improvement in ability to perform activities of daily living to be achieved by 02-15-23. Pain No Manage diabetic foot care Description: Patient/caregiver will demonstrate basic understanding of and compliance with diabetic self-care management as evidenced by verbalizing purpose of daily foot care and assessment by 02-15-23. Diabetic Foot Care No Manage oxygen Description: Patient/caregiver will use oxygen safely and effectively in home by verbalizing and demonstrating oxygen safety by 02-15-23. Oxygen No Patient/caregiver will teach back high risk medication side effect and precaution education High Risk Medications No Manage discharge planning Description: Patient/caregiver will verbalize understanding of ongoing discharge plan provided related to disease management, arrangements for outpatient and/or community services, obtaining medications, supplies, and DME, as needed throughout certification period. Discharge No Patient will have improved edema management Description: Patient/caregiver will demonstrate an understanding of edema management strategies as evidenced by resolution or stabilization of edema by 02-15-23. SN Edema No Improved management of diabetes Description: Improve diabetic management as evidenced by patient/caregiver able to teach back diabetic management strategies by 02-15-23. SN Diabetes No Improved management of cardiovascular disease Description: Improve patient/caregiver management of cardiac disease as evidenced by patient/caregiver ability to teach back cardiac management strategies by 02-15-23. SN Cardiovascular Condition No Demonstrate understanding of education Description: Patient and/or caregiver will verbalize understanding of educational instruction provided throughout certification period. SN Learning Assessment No Improved management of COPD Description: Improve COPD management as evidenced by decreased reports of dyspnea, medication compliance, and patient able to teach back strategies to manage condition. Goal to be achieved by 02-15-23 SN COPD No Ongoing review of POC and need for skilled services Recertification No Patient/Caregiver will have improved healing and be free of signs and symptoms of complications Description: Patient/caregiver will verbalize management strategies to promote wound healing & prevent complications as evidenced by improved healing & no complications. SN Integumentary/Wounds No Interventions Intervention Associated Problem/Goal Status Variance Visit Notes Medication Education Description: Evaluate/instruct patient/caregiver on obtaining, storing, identifying and administering ordered medications as well as keeping accurate medication list in the home and adhereing to medication schedule Problem:Medication Education Goal:Patient/caregive r will demonstrate ability to obtain, store, identify and administer ordered medications, keep accurate medication list in home, and adhere to medication schedule Completed Patient instructed on importance of keeping accurate medication list in home, adhering to medication schedule and proper storage of medications. Risk of Sepsis Description: Patient is at risk for sepsis. Monitor closely for s/s of sepsis. Problem:Sepsis Goal:Patient/caregive r will be able to identify and report symptoms of sepsis Completed SPO2 Description: Notify if pulse ox is <92% at rest. Problem:Physician Specific Parameters Goal:Patient to maintain parameters within physician-specified ranges throughout certification period Completed Instruct on individual fall risk factors and strategies to prevent falls and injuries caused by falls. Problem:Risk for Falls Goal:Manage Risk for falls Completed SN: Patient instructed on Eliminating Environmental Hazards: Keep pathways clear, Keep pets out of pathways, Keep rooms and walkways well lit, Wear supportive shoes or non-skid socks and Keep frequently used items within reach Instruct on pain and instruct on strategies to control pain Problem:Pain Goal:Manage Pain Completed patient instructed on techniques to control pain including Pharmacological measures and Non-Pharmacological measures; rest, positioning/elevation, mobility/therapeutic exercise and distraction. Monitor lower extremities for skin lesions and educate on proper foot care Problem:Diabetic Foot Care Goal:Manage diabetic foot care Completed patient instructed on diabetic foot care including daily skin inspection, wearing proper footwear/avoiding going barefoot and wash/dry feet thoroughly. Instruct on fire safety and safe and effective use of oxygen in the home Problem:Oxygen Goal:Manage oxygen Completed patient instructed on: findings of safety risk assessment, causes of fires, firerisks for neighboring residences and buildings, precautions that can prevent fire-related injuries, oxygen safety as outlined in Home Care Patient Handbook and recommendations for specific safety risks identified in the home: establishment of fire escape plan, telephone accessibility and implementation of no-smoking policy in home, including e-cigarettes and posting of No-Smoking signs on entrance doors patient demonstrate compliance with safety recommendations. Opioids- educated on high risk medication Problem:High Risk Medications Goal:Patient/caregive r will teach back high risk medication side effect and precaution education Completed patient educated on taking medication(s) as prescribed by provider. Do not stop medication or alter doses without speaking with your provider. Discuss medication effectiveness or side effect concerns with your provider and home care team. Only take opioids as prescribed, do not share your medications, and take proper precautions in storing and properly disposing of opioids once no longer needed. Possible side effects of opioid medication including sedation, decreased rate of breathing, and constipation. Report over sedation to prescribing provider and practice deep breathing techniques every hour while awake. Prevent constipation by increasing water and fiber intake, increasing activity as tolerated, and use stool softener(s) as prescribed. Hypoglycemic (including insulin)- educated on high risk medication Problem:High Risk Medications Goal:Patient/caregive r will teach back high risk medication side effect and precaution education Completed patient educated on taking medication(s) as prescribed by provider. Do not stop medication or skip/alter doses without speaking with your provider. Discuss medication effectiveness or side effect concerns with your provider and home care team. Check blood sugars and keep log as ordered by provider. Monitor for side effects of hypoglycemia such as increased weakness or shaking, moist skin, sweating, fast heartbeat, dizziness, sudden hunger, confusion, pale skin, numbness in mouth or tongue, irritability, nervousness, unsteadiness, nightmares, bad dreams, and restless sleep. Checking your blood sugar routinely and eating a consistent diabetic diet can help regulate blood sugars and reduce side effects. Antiplatelet- educated on high risk medication Problem:High Risk Medications Goal:Patient/caregive r will teach back high risk medication side effect and precaution education Completed patient educated on taking medication(s) as prescribed by provider. Do not stop medication or alter doses without speaking with your provider. Discuss medication effectiveness or side effect concerns with your provider and home care team. Discuss all medications you are taking, even djhp-aio-cmeryjp medicines, with your provider and pharmacist since many drugs can interact with antiplatelet medications. If you forget to take a dose, DO NOT take a double dose. Take the missed dose as soon as possible on the same day. DO NOT take a double dose the next day to make up for the missed dose. Watch for signs of abnormal or excessive bleeding and bruising (refer to Bleeding Precautions education). Call your health care provider right away if you suspect something is wrong. Antibiotic- educated on high risk medication Problem:High Risk Medications Goal:Patient/caregive r will teach back high risk medication side effect and precaution education Completed patient educated on taking medication(s) as prescribed by provider. Do not stop medication or alter doses without speaking with your provider. Discuss medication effectiveness or side effect concerns with your provider and home care team. Take the full dispensed amount even if you start feeling better, as bacteria can become resistant to antibiotic treatment if you do not finish your prescription. Common side effects are upset stomach and diarrhea. Take your antibiotics with food unless otherwise indicated to help with indigestion. Taking an wauy-sxm-vvjagbp probiotic or eating yogurt with live and active cultures three times a day can help prevent antibiotic-associated diarrhea. Call your provider immediately if you develop rashes or hives as this could be a delayed allergic reaction. Seek emergency treatment if you develop severe allergic reaction symptoms such as mouth or tongue swelling. Instruct on ongoing discharge plan Problem:Discharge Goal:Manage discharge planning Completed Ongoing Discharge plan: Discharge plan discussed with patient including frequency and duration for home SN and plan for transition to: caregiver assistance. Assess and instruct on measures to reduce edema Problem:SN Edema Goal:Patient will have improved edema management Completed patient instructed on elevation, compression, diet, medication compliance and benefits of activity. Instruct on diabetes disease process and management of chronic condition Description: Patient has needs for education of diabetes. Problem:SN Diabetes Goal:Improved management of diabetes Completed patient assessed and reinforced on diabetes disease process, diet education, how to carb count, recogonizing s/s of hypoglycemia and hyperglycemia and managing sick days as found in the diabetes self-care booklets. Instruct on cardiovascular disease process and management of condition Description: Patient has following cardiac diagnosis(es): CAD. Problem:SN Cardiovascular Condition Goal:Improved management of cardiovascular disease Completed patient instructed on cardiac disease process, self monitoring & symptom reporting and Cardiac Diet. Instruct and educate on knowledge deficits Problem:SN Learning Assessment Goal:Demonstrate understanding of education Completed patient verbalize and/or demonstrate understanding of nursing education completed today. Education methods include: verbal cues. Further education required to improve knowledge and compliance with cardiac disease management, diabetic care management, fall prevention/home safety strategies, incision/wound care management, oxygen safety and pulmonary disease management. Maintenance COPD Description: Reinforce Acute and Sub-acute management education. Instruct on review zone sheet, nutrition in relation to COPD management, energy conservation, pacing activities, independence in ADLs vs what caregiver should be helping with, home exercise, additional COPD resources available like chronic care clinics as found in the COPD binder. Problem:SN COPD Goal:Improved management of COPD Completed Reinforced Acute and Sub-acute management education. patient reinforced on zone sheet, nutrition in relation to COPD management and energy conservation pacing activities and Romeo in ADLs vs what caregiver should be helping with as found in the COPD binder. Acute COPD Description: Instruct on defintion of COPD, signs and symptoms of COPD exacerbation, use of zone sheet, use of MDIs, difference between rescue vs maintenance inhalers, use of nebulizer, smoking cessation, breathing management including pursed lip breathing, diaphragmatic breathing, positioning to reduce SOB, controlled coughing, use of incentive spirometer, and use of acapela as found in the COPD binder. Problem:SN COPD Goal:Improved management of COPD Completed patient reinforced on defintion of COPD, signs and symptoms of COPD exacerbation, difference between rescue vs maintenance inhalers, use of nebulizer, smoking cessation and breathing management: pursed lip breathing, diaphragmatic breathing and positioning to reduce SOB as found in the COPD binder. Continued need for Home Care Services Description: POC and certification renewed due to continuing [facility] needs. Problem:Recertificati on Goal:Ongoing review of POC and need for skilled services Completed Wound Care: Peform wound care (3) Description: Wound Care Order: Wound location: scrotum Wound type (etiology): Traumatic Order: Cleanse with Chlorahexadine or mild soap and water, rinse pat dry. apply lidocaine, apply protective barrier cream cover with dry dressing Frequency: daily and as needed for soiled Wound care to be completed by patient except for scheduled SN wound care visits. Measure wound/incision at least weekly. Okay to substitute comparable products from home care formulary. Problem:SN Integumentary/Wounds Goal:Patient/Caregive r will have improved healing and be free of signs and symptoms of complications Completed Completed by SN. Patient did tolerate well. Wound Care: Perform wound care (2) Description: Wound Care Order: Wound location: Left inner thigh Wound type (etiology): Boil Order: Cleanse with Chlorahexadine or mild soap and water, rinse pat dry. apply lidocaine, pack with aquacell silver ag, cover with dry dressing Frequency: every other day and as needed for soiled Wound care to be completed by patient except for scheduled SN wound care visits. Measure wound/incision at least weekly. Okay to substitute comparable products from home care formulary. Problem:SN Integumentary/Wounds Goal:Patient/Caregive r will have improved healing and be free of signs and symptoms of complications Completed Completed by SN. Patient did tolerate well. Wound Care: Perform wound care (1) Description: Wound Care Order: Wound location: left inner thigh Wound type (etiology): Surgical Wound Order: Cleanse with Chlorahexadine or mild soap and water, rinse pat dry. apply lidocaine, pack with aquacell silver ag, cover with dry dressing Frequency: change every other day and as needed Wound care to be completed by patient except for scheduled SN wound care visits. Measure wound/incision at least weekly. Okay to substitute comparable products from home care formulary. Problem:SN Integumentary/Wounds Goal:Patient/Caregive r will have improved healing and be free of signs and symptoms of complications Completed Completed by SN. Patient did tolerate well. Instruct patient/caregiver healing process and management measures to promote healing and avoid complications Problem:SN Integumentary/Wounds Goal:Patient/Caregive r will have improved healing and be free of signs and symptoms of complications Completed patient instructed on the following: healing process, signs and symptoms of infection, importance of good nutrition, importance of managing blood sugars, smoking cessation and when to report symptoms. Instruct Patient/Caregiver on wound/incision care procedure as ordered by physician Problem:SN Integumentary/Wounds Goal:Patient/Caregive r will have improved healing and be free of signs and symptoms of complications Completed patient instructed on wound care as ordered by Physician. documented in this encounter [facility]'s home Plan of care note* Visit Details Visit Type -SN ROUTINE Discipline -Half-Way Problems Problem Description Start Date Status Goals Interve ntions Medication Education Disciplines: Skilled Services 08/20/2022 Active 1 goal linked to scheduled/docume nted intervention 1 goal intervention scheduled/documen pawan in this visit Sepsis Disciplines: Skilled Services 08/20/2022 Active 1 goal linked to scheduled/docume nted intervention 1 goal intervention scheduled/documen pawan in this visit Physician Specific Parameters Disciplines: Skilled Services 08/20/2022 Active 1 goal linked to scheduled/docume nted intervention 1 goal intervention scheduled/documen pawan in this visit Risk for Falls Disciplines: Skilled Services 08/20/2022 Active 1 goal linked to scheduled/docume nted intervention 1 goal intervention scheduled/documen pawan in this visit Pain Disciplines: Skilled Services 08/20/2022 Active 1 goal linked to scheduled/docume nted intervention 1 goal intervention scheduled/documen pawan in this visit Diabetic Foot Care Disciplines: Skilled Services 08/20/2022 Active 1 goal linked to scheduled/docume nted intervention 1 goal intervention scheduled/documen pawan in this visit Oxygen Disciplines: Skilled Services 08/20/2022 Active 1 goal linked to scheduled/docume nted intervention 1 goal intervention scheduled/documen pawan in this visit High Risk Medications Disciplines: Skilled Services 08/20/2022 Active 1 goal linked to scheduled/docume nted intervention 4 goal interventions scheduled/documen pawan in this visit Discharge Disciplines: Skilled Services 08/20/2022 Active 1 goal linked to scheduled/docume nted intervention 1 goal intervention scheduled/documen pawan in this visit SN Edema Disciplines: SN 08/20/2022 Active 1 goal linked to scheduled/docume nted intervention 1 goal intervention scheduled/documen pawan in this visit SN Diabetes Disciplines: SN 08/20/2022 Active 1 goal linked to scheduled/docume nted intervention 1 goal intervention scheduled/documen pawan in this visit SN Cardiovascular Condition Disciplines: SN 08/20/2022 Active 1 goal linked to scheduled/docume nted intervention 1 goal intervention scheduled/documen pawan in this visit SN COPD Disciplines: SN 09/22/2022 Active 1 goal linked to scheduled/docume nted intervention 1 goal intervention scheduled/documen pawan in this visit Recertification Disciplines: Skilled Services 12/17/2022 Active 1 goal linked to scheduled/docume nted intervention 1 goal intervention scheduled/documen pawan in this visit SN Labwork Disciplines: SN 02/04/2023 Resolved on 02/11/2023 1 goal linked to scheduled/docume nted intervention 1 goal intervention scheduled/documen pawan in this visit SN Integumentary/Wound s Disciplines: SN 02/04/2023 Active 1 goal linked to scheduled/docume nted intervention 1 goal intervention scheduled/documen pawan in this visit Goals Goal Associated Problem Outcome Goal Met? Visit Notes Patient/caregiver will demonstrate ability to obtain, store, identify and administer ordered medications, keep accurate medication list in home, and adhere to medication schedule Description: Patient/caregiver will demonstrate ability to obtain, store, identify and administer ordered medications, keep accurate medication list in home, and adhere to medication schedule by 02-15-23. Medication Education No Patient/caregiver will be able to identify and report symptoms of sepsis Description: Patient/caregiver will be able to identify signs/symptoms of sepsis infection and will verbalize actions to take if suspected by 02-15-23. Sepsis No Patient to maintain parameters within physician-specified ranges throughout certification period Physician Specific Parameters No Manage Risk for falls Description: Patient/caregiver will verbalize knowledge of individualized fall prevention strategies by 02-15-23. Risk for Falls No Manage Pain Description: Patient/caregiver will verbalize knowledge and understanding of appropriate techniques to control pain, including pain medication and non-pharmacological techniques. Patient will verbalize or demonstrate an acceptable level of pain as evidenced by a pain score of 0-3/10 and improvement in ability to perform activities of daily living to be achieved by 02-15-23. Pain No Manage diabetic foot care Description: Patient/caregiver will demonstrate basic understanding of and compliance with diabetic self-care management as evidenced by verbalizing purpose of daily foot care and assessment by 02-15-23. Diabetic Foot Care No Manage oxygen Description: Patient/caregiver will use oxygen safely and effectively in home by verbalizing and demonstrating oxygen safety by 02-15-23. Oxygen No Patient/caregiver will teach back high risk medication side effect and precaution education High Risk Medications No Manage discharge planning Description: Patient/caregiver will verbalize understanding of ongoing discharge plan provided related to disease management, arrangements for outpatient and/or community services, obtaining medications, supplies, and DME, as needed throughout certification period. Discharge No Patient will have improved edema management Description: Patient/caregiver will demonstrate an understanding of edema management strategies as evidenced by resolution or stabilization of edema by 02-15-23. SN Edema No Improved management of diabetes Description: Improve diabetic management as evidenced by patient/caregiver able to teach back diabetic management strategies by 02-15-23. SN Diabetes No Improved management of cardiovascular disease Description: Improve patient/caregiver management of cardiac disease as evidenced by patient/caregiver ability to teach back cardiac management strategies by 02-15-23. SN Cardiovascular Condition No Improved management of COPD Description: Improve COPD management as evidenced by decreased reports of dyspnea, medication compliance, and patient able to teach back strategies to manage condition. Goal to be achieved by 02-15-23 SN COPD No Ongoing review of POC and need for skilled services Recertification No SN to obtain lab specimen without difficulty when ordered throughout certification period SN Labwork Completed Yes Patient/Caregiver will have improved healing and be free of signs and symptoms of complications Description: Patient/caregiver will verbalize management strategies to promote wound healing & prevent complications as evidenced by improved healing & no complications. SN Integumentary/Wounds No Interventions Intervention Associated Problem/Goal Status Variance Visit Notes Medication Education Description: Evaluate/instruct patient/caregiver on obtaining, storing, identifying and administering ordered medications as well as keeping accurate medication list in the home and adhereing to medication schedule Problem:Medication Education Goal:Patient/caregive r will demonstrate ability to obtain, store, identify and administer ordered medications, keep accurate medication list in home, and adhere to medication schedule Completed Patient instructed on importance of keeping accurate medication list in home, adhering to medication schedule and proper storage of medications. Risk of Sepsis Description: Patient is at risk for sepsis. Monitor closely for s/s of sepsis. Problem:Sepsis Goal:Patient/caregive r will be able to identify and report symptoms of sepsis Completed SPO2 Description: Notify if pulse ox is <92% at rest. Problem:Physician Specific Parameters Goal:Patient to maintain parameters within physician-specified ranges throughout certification period Completed Instruct on individual fall risk factors and strategies to prevent falls and injuries caused by falls. Problem:Risk for Falls Goal:Manage Risk for falls Completed SN: Patient instructed on Eliminating Environmental Hazards: Keep pathways clear, Keep pets out of pathways, Keep rooms and walkways well lit, Wear supportive shoes or non-skid socks and Keep frequently used items within reach Instruct on pain and instruct on strategies to control pain Problem:Pain Goal:Manage Pain Completed patient instructed on techniques to control pain including Pharmacological measures and Non-Pharmacological measures; rest, positioning/elevation and mobility/therapeutic exercise. Monitor lower extremities for skin lesions and educate on proper foot care Problem:Diabetic Foot Care Goal:Manage diabetic foot care Completed patient instructed on diabetic foot care including daily skin inspection, wearing proper footwear/avoiding going barefoot, wash/dry feet thoroughly, applying moisturizer, avoiding between toes and toenail care. Instruct on fire safety and safe and effective use of oxygen in the home Problem:Oxygen Goal:Manage oxygen Completed patient instructed on: findings of safety risk assessment, causes of fires, firerisks for neighboring residences and buildings, precautions that can prevent fire-related injuries, oxygen safety as outlined in Home Care Patient Handbook and recommendations for specific safety risks identified in the home: maintenance of working smoke detectors and changing batteries, establishment of fire escape plan, telephone accessibility and implementation of no-smoking policy in home, including e-cigarettes and posting of No-Smoking signs on entrance doors patient demonstrate compliance with safety recommendations. Opioids- educated on high risk medication Problem:High Risk Medications Goal:Patient/caregive r will teach back high risk medication side effect and precaution education Completed patient educated on taking medication(s) as prescribed by provider. Do not stop medication or alter doses without speaking with your provider. Discuss medication effectiveness or side effect concerns with your provider and home care team. Only take opioids as prescribed, do not share your medications, and take proper precautions in storing and properly disposing of opioids once no longer needed. Possible side effects of opioid medication including sedation, decreased rate of breathing, and constipation. Report over sedation to prescribing provider and practice deep breathing techniques every hour while awake. Prevent constipation by increasing water and fiber intake, increasing activity as tolerated, and use stool softener(s) as prescribed. Hypoglycemic (including insulin)- educated on high risk medication Problem:High Risk Medications Goal:Patient/caregive r will teach back high risk medication side effect and precaution education Completed patient educated on taking medication(s) as prescribed by provider. Do not stop medication or skip/alter doses without speaking with your provider. Discuss medication effectiveness or side effect concerns with your provider and home care team. Check blood sugars and keep log as ordered by provider. Monitor for side effects of hypoglycemia such as increased weakness or shaking, moist skin, sweating, fast heartbeat, dizziness, sudden hunger, confusion, pale skin, numbness in mouth or tongue, irritability, nervousness, unsteadiness, nightmares, bad dreams, and restless sleep. Checking your blood sugar routinely and eating a consistent diabetic diet can help regulate blood sugars and reduce side effects. Antiplatelet- educated on high risk medication Problem:High Risk Medications Goal:Patient/caregive r will teach back high risk medication side effect and precaution education Completed patient educated on taking medication(s) as prescribed by provider. Do not stop medication or alter doses without speaking with your provider. Discuss medication effectiveness or side effect concerns with your provider and home care team. Discuss all medications you are taking, even svlm-geg-wliqinr medicines, with your provider and pharmacist since many drugs can interact with antiplatelet medications. If you forget to take a dose, DO NOT take a double dose. Take the missed dose as soon as possible on the same day. DO NOT take a double dose the next day to make up for the missed dose. Watch for signs of abnormal or excessive bleeding and bruising (refer to Bleeding Precautions education). Call your health care provider right away if you suspect something is wrong. Antibiotic- educated on high risk medication Problem:High Risk Medications Goal:Patient/caregive r will teach back high risk medication side effect and precaution education Completed patient educated on taking medication(s) as prescribed by provider. Do not stop medication or alter doses without speaking with your provider. Discuss medication effectiveness or side effect concerns with your provider and home care team. Take the full dispensed amount even if you start feeling better, as bacteria can become resistant to antibiotic treatment if you do not finish your prescription. Common side effects are upset stomach and diarrhea. Take your antibiotics with food unless otherwise indicated to help with indigestion. Taking an feqh-dax-wohduge probiotic or eating yogurt with live and active cultures three times a day can help prevent antibiotic-associated diarrhea. Call your provider immediately if you develop rashes or hives as this could be a delayed allergic reaction. Seek emergency treatment if you develop severe allergic reaction symptoms such as mouth or tongue swelling. Instruct on ongoing discharge plan Problem:Discharge Goal:Manage discharge planning Completed Ongoing Discharge plan: Discharge plan discussed with patient including frequency and duration for home SN and plan for transition to: caregiver assistance. Assess and instruct on measures to reduce edema Problem:SN Edema Goal:Patient will have improved edema management Completed patient instructed on elevation, compression, diet, medication compliance and benefits of activity. Instruct on diabetes disease process and management of chronic condition Description: Patient has needs for education of diabetes. Problem:SN Diabetes Goal:Improved management of diabetes Completed patient assessed and reinforced on diabetes disease process, blood sugar meter and logging readings, how food and insulin affect blood sugar, diet education and how to carb count as found in the diabetes self-care booklets. Instruct on cardiovascular disease process and management of condition Description: Patient has following cardiac diagnosis(es): CAD. Problem:SN Cardiovascular Condition Goal:Improved management of cardiovascular disease Completed patient instructed on cardiac disease process, self monitoring & symptom reporting and Cardiac Diet. Maintenance COPD Description: Reinforce Acute and Sub-acute management education. Instruct on review zone sheet, nutrition in relation to COPD management, energy conservation, pacing activities, independence in ADLs vs what caregiver should be helping with, home exercise, additional COPD resources available like chronic care clinics as found in the COPD binder. Problem:SN COPD Goal:Improved management of COPD Completed Reinforced Acute and Sub-acute management education. patient reinforced on zone sheet, nutrition in relation to COPD management and energy conservation pacing activities and Romeo in ADLs vs what caregiver should be helping with as found in the COPD binder. Continued need for Home Care Services Description: POC and certification renewed due to continuing [facility] needs. Problem:Recertificati on Goal:Ongoing review of POC and need for skilled services Completed SN to obtain blood specimen (1) Description: Draw blood via venipuncture for CBC, CMP, TSH, FREE T 4, FREE T3, SERUM IRON, CRP, VITAMIN B 12 with a frequency of once on Date: 02-06-23. Results to DR Norris. Phone/Fax number [phone]. [phone] Dx code(s): E16.2. If unable to draw blood through IV access device, may draw blood peripherally. Problem:SN Labwork Goal:SN to obtain lab specimen without difficulty when ordered throughout certification period Completed Wound Care: Peform wound care (3) Description: Wound Care Order: Wound location: scrotum Wound type (etiology): Traumatic Order: Cleanse with Chlorahexadine or mild soap and water, rinse pat dry. apply lidocaine, apply protective barrier cream cover with dry dressing Frequency: daily and as needed for soiled Wound care to be completed by patient except for scheduled SN wound care visits. Measure wound/incision at least weekly. Okay to substitute comparable products from home care formulary. Problem:SN Integumentary/Wounds Goal:Patient/Caregive r will have improved healing and be free of signs and symptoms of complications Completed Completed by patient/caregiver completed independently . Patient did tolerate well. documented in this encounter [facility]'s home Plan of care note* Visit Details Visit Type -SN RECERT Discipline -Half-Way Problems Problem Description Start Date Status Goals Interve ntions Medication Education Disciplines: Skilled Services 08/20/2022 Active 1 goal linked to scheduled/documen pawan intervention 1 goal intervention scheduled/document ed in this visit Sepsis Disciplines: Skilled Services 08/20/2022 Active 1 goal linked to scheduled/documen pawan intervention 1 goal intervention scheduled/document ed in this visit Physician Specific Parameters Disciplines: Skilled Services 08/20/2022 Active 1 goal linked to scheduled/documen pawan intervention 1 goal intervention scheduled/document ed in this visit Risk for Falls Disciplines: Skilled Services 08/20/2022 Active 1 goal linked to scheduled/documen pawan intervention 1 goal intervention scheduled/document ed in this visit Pain Disciplines: Skilled Services 08/20/2022 Active 1 goal linked to scheduled/documen pawan intervention 1 goal intervention scheduled/document ed in this visit Diabetic Foot Care Disciplines: Skilled Services 08/20/2022 Active 1 goal linked to scheduled/documen pawan intervention 1 goal intervention scheduled/document ed in this visit Oxygen Disciplines: Skilled Services 08/20/2022 Active 1 goal linked to scheduled/documen pawan intervention 1 goal intervention scheduled/document ed in this visit High Risk Medications Disciplines: Skilled Services 08/20/2022 Active 1 goal linked to scheduled/documen pawan intervention 4 goal interventions scheduled/document ed in this visit Discharge Disciplines: Skilled Services 08/20/2022 Active 1 goal linked to scheduled/documen pawan intervention 1 goal intervention scheduled/document ed in this visit SN Edema Disciplines: SN 08/20/2022 Active 1 goal linked to scheduled/documen pawan intervention 1 goal intervention scheduled/document ed in this visit SN Diabetes Disciplines: SN 08/20/2022 Active 1 goal linked to scheduled/documen pawan intervention 1 goal intervention scheduled/document ed in this visit SN Cardiovascular Condition Disciplines: SN 08/20/2022 Active 1 goal linked to scheduled/documen pawan intervention 1 goal intervention scheduled/document ed in this visit SN COPD Disciplines: SN 09/22/2022 Active 1 goal linked to scheduled/documen pawan intervention 1 goal intervention scheduled/document ed in this visit Recertification Disciplines: Skilled Services 12/17/2022 Active 1 goal linked to scheduled/documen pawan intervention 1 goal intervention scheduled/document ed in this visit SN Integumentary/Wound s Disciplines: SN 02/04/2023 Active 1 goal linked to scheduled/documen pawan intervention 3 goal interventions scheduled/document ed in this visit Recertification Disciplines: Skilled Services 02/13/2023 Active 1 goal linked to scheduled/documen pawan intervention 1 goal intervention scheduled/document ed in this visit Goals Goal Associated Problem Outcome Goal Met? Visit Notes Patient/caregiver will demonstrate ability to obtain, store, identify and administer ordered medications, keep accurate medication list in home, and adhere to medication schedule Description: Patient/caregiver will demonstrate ability to obtain, store, identify and administer ordered medications, keep accurate medication list in home, and adhere to medication schedule by 04-16-23. Medication Education No Patient/caregiver will be able to identify and report symptoms of sepsis Description: Patient/caregiver will be able to identify signs/symptoms of sepsis infection and will verbalize actions to take if suspected by 04-16-23. Sepsis No Patient to maintain parameters within physician-specified ranges throughout certification period Physician Specific Parameters No Manage Risk for falls Description: Patient/caregiver will verbalize knowledge of individualized fall prevention strategies by 04-16-23. Risk for Falls No Manage Pain Description: Patient/caregiver will verbalize knowledge and understanding of appropriate techniques to control pain, including pain medication and non-pharmacological techniques. Patient will verbalize or demonstrate an acceptable level of pain as evidenced by a pain score of 0-3/10 and improvement in ability to perform activities of daily living to be achieved by 04-16-23. Pain No Manage diabetic foot care Description: Patient/caregiver will demonstrate basic understanding of and compliance with diabetic self-care management as evidenced by verbalizing purpose of daily foot care and assessment by 04-16-23. Diabetic Foot Care No Manage oxygen Description: Patient/caregiver will use oxygen safely and effectively in home by verbalizing and demonstrating oxygen safety by 04-16-23. Oxygen No Patient/caregiver will teach back high risk medication side effect and precaution education High Risk Medications No Manage discharge planning Description: Patient/caregiver will verbalize understanding of ongoing discharge plan provided related to disease management, arrangements for outpatient and/or community services, obtaining medications, supplies, and DME, as needed throughout certification period. Discharge No Patient will have improved edema management Description: Patient/caregiver will demonstrate an understanding of edema management strategies as evidenced by resolution or stabilization of edema by 04-16-23. SN Edema No Improved management of diabetes Description: Improve diabetic management as evidenced by patient/caregiver able to teach back diabetic management strategies by 04-16-23. SN Diabetes No Improved management of cardiovascular disease Description: Improve patient/caregiver management of cardiac disease as evidenced by patient/caregiver ability to teach back cardiac management strategies by 04-16-23. SN Cardiovascular Condition No Improved management of COPD Description: Improve COPD management as evidenced by decreased reports of dyspnea, medication compliance, and patient able to teach back strategies to manage condition. Goal to be achieved by 04-16-23 SN COPD No Ongoing review of POC and need for skilled services Recertification No Patient/Caregiver will have improved healing and be free of signs and symptoms of complications Description: Patient/caregiver will verbalize management strategies to promote wound healing & prevent complications as evidenced by improved healing & no complications. SN Integumentary/Wounds No Ongoing review of POC and need for skilled services Recertification No Interventions Intervention Associated Problem/Goal Status Variance Visit Notes Medication Education Description: Evaluate/instruct patient/caregiver on obtaining, storing, identifying and administering ordered medications as well as keeping accurate medication list in the home and adhereing to medication schedule Problem:Medication Education Goal:Patient/caregive r will demonstrate ability to obtain, store, identify and administer ordered medications, keep accurate medication list in home, and adhere to medication schedule Completed Patient instructed on importance of keeping accurate medication list in home, adhering to medication schedule and proper storage of medications. Risk of Sepsis Description: Patient is at risk for sepsis. Monitor closely for s/s of sepsis. Problem:Sepsis Goal:Patient/caregive r will be able to identify and report symptoms of sepsis Completed SPO2 Description: Notify DrLeon if pulse ox is <92% at rest. Problem:Physician Specific Parameters Goal:Patient to maintain parameters within physician-specified ranges throughout certification period Completed Instruct on individual fall risk factors and strategies to prevent falls and injuries caused by falls. Problem:Risk for Falls Goal:Manage Risk for falls Completed SN: Patient instructed on Eliminating Environmental Hazards: Keep pathways clear, Keep pets out of pathways, Keep rooms and walkways well lit, Wear supportive shoes or non-skid socks and Keep frequently used items within reach Instruct on pain and instruct on strategies to control pain Problem:Pain Goal:Manage Pain Completed patient instructed on techniques to control pain including Pharmacological measures and Non-Pharmacological measures; rest, positioning/elevation and mobility/therapeutic exercise. Monitor lower extremities for skin lesions and educate on proper foot care Problem:Diabetic Foot Care Goal:Manage diabetic foot care Completed patient instructed on diabetic foot care including daily skin inspection, wearing proper footwear/avoiding going barefoot, wash/dry feet thoroughly, applying moisturizer, avoiding between toes and toenail care. Instruct on fire safety and safe and effective use of oxygen in the home Problem:Oxygen Goal:Manage oxygen Completed patient instructed on: findings of safety risk assessment, causes of fires, firerisks for neighboring residences and buildings, precautions that can prevent fire-related injuries, oxygen safety as outlined in Home Care Patient Handbook and recommendations for specific safety risks identified in the home: maintenance of working smoke detectors and changing batteries, establishment of fire escape plan, telephone accessibility and implementation of no-smoking policy in home, including e-cigarettes and posting of No-Smoking signs on entrance doors patient demonstrate compliance with safety recommendations. Opioids- educated on high risk medication Problem:High Risk Medications Goal:Patient/caregive r will teach back high risk medication side effect and precaution education Completed patient educated on taking medication(s) as prescribed by provider. Do not stop medication or alter doses without speaking with your provider. Discuss medication effectiveness or side effect concerns with your provider and home care team. Only take opioids as prescribed, do not share your medications, and take proper precautions in storing and properly disposing of opioids once no longer needed. Possible side effects of opioid medication including sedation, decreased rate of breathing, and constipation. Report over sedation to prescribing provider and practice deep breathing techniques every hour while awake. Prevent constipation by increasing water and fiber intake, increasing activity as tolerated, and use stool softener(s) as prescribed. Hypoglycemic (including insulin)- educated on high risk medication Problem:High Risk Medications Goal:Patient/caregive r will teach back high risk medication side effect and precaution education Completed patient educated on taking medication(s) as prescribed by provider. Do not stop medication or skip/alter doses without speaking with your provider. Discuss medication effectiveness or side effect concerns with your provider and home care team. Check blood sugars and keep log as ordered by provider. Monitor for side effects of hypoglycemia such as increased weakness or shaking, moist skin, sweating, fast heartbeat, dizziness, sudden hunger, confusion, pale skin, numbness in mouth or tongue, irritability, nervousness, unsteadiness, nightmares, bad dreams, and restless sleep. Checking your blood sugar routinely and eating a consistent diabetic diet can help regulate blood sugars and reduce side effects. Antiplatelet- educated on high risk medication Problem:High Risk Medications Goal:Patient/caregive r will teach back high risk medication side effect and precaution education Completed patient educated on taking medication(s) as prescribed by provider. Do not stop medication or alter doses without speaking with your provider. Discuss medication effectiveness or side effect concerns with your provider and home care team. Discuss all medications you are taking, even ymvk-twk-xxcwoap medicines, with your provider and pharmacist since many drugs can interact with antiplatelet medications. If you forget to take a dose, DO NOT take a double dose. Take the missed dose as soon as possible on the same day. DO NOT take a double dose the next day to make up for the missed dose. Watch for signs of abnormal or excessive bleeding and bruising (refer to Bleeding Precautions education). Call your health care provider right away if you suspect something is wrong. Antibiotic- educated on high risk medication Problem:High Risk Medications Goal:Patient/caregive r will teach back high risk medication side effect and precaution education Completed patient educated on taking medication(s) as prescribed by provider. Do not stop medication or alter doses without speaking with your provider. Discuss medication effectiveness or side effect concerns with your provider and home care team. Take the full dispensed amount even if you start feeling better, as bacteria can become resistant to antibiotic treatment if you do not finish your prescription. Common side effects are upset stomach and diarrhea. Take your antibiotics with food unless otherwise indicated to help with indigestion. Taking an pakv-fqj-hsrwrtd probiotic or eating yogurt with live and active cultures three times a day can help prevent antibiotic-associated diarrhea. Call your provider immediately if you develop rashes or hives as this could be a delayed allergic reaction. Seek emergency treatment if you develop severe allergic reaction symptoms such as mouth or tongue swelling. Instruct on ongoing discharge plan Problem:Discharge Goal:Manage discharge planning Completed Ongoing Discharge plan: Discharge plan discussed with patient including frequency and duration for home SN and plan for transition to: caregiver assistance. Assess and instruct on measures to reduce edema Problem:SN Edema Goal:Patient will have improved edema management Completed patient instructed on elevation, compression, diet, medication compliance and benefits of activity. Instruct on diabetes disease process and management of chronic condition Description: Patient has needs for education of diabetes. Problem:SN Diabetes Goal:Improved management of diabetes Completed patient assessed and reinforced on diabetes disease process, diet education, how to carb count, recogonizing s/s of hypoglycemia and hyperglycemia and managing sick days as found in the diabetes self-care booklets. Instruct on cardiovascular disease process and management of condition Description: Patient has following cardiac diagnosis(es): CAD. Problem:SN Cardiovascular Condition Goal:Improved management of cardiovascular disease Completed patient instructed on cardiac disease process, self monitoring & symptom reporting and Cardiac Diet. Maintenance COPD Description: Reinforce Acute and Sub-acute management education. Instruct on review zone sheet, nutrition in relation to COPD management, energy conservation, pacing activities, independence in ADLs vs what caregiver should be helping with, home exercise, additional COPD resources available like chronic care clinics as found in the COPD binder. Problem:SN COPD Goal:Improved management of COPD Completed Reinforced Acute and Sub-acute management education. patient reinforced on zone sheet, nutrition in relation to COPD management and energy conservation pacing activities as found in the COPD binder. Continued need for Home Care Services Description: POC and certification renewed due to continuing [facility] needs. Problem:Recertificati on Goal:Ongoing review of POC and need for skilled services Completed Wound Care: Perform wound care (1) Description: Wound Care Order: Wound location: left inner thigh Wound type (etiology): Surgical Wound Order: Cleanse with Chlorahexadine or mild soap and water, rinse pat dry. apply lidocaine, pack with aquacell silver ag, cover with dry dressing Frequency: change every other day and as needed Wound care to be completed by patient except for scheduled SN wound care visits. Measure wound/incision at least weekly. Okay to substitute comparable products from home care formulary. Problem:SN Integumentary/Wounds Goal:Patient/Caregive r will have improved healing and be free of signs and symptoms of complications Completed Completed by patient/caregiver completed independently . Patient did tolerate well. Instruct patient/caregiver healing process and management measures to promote healing and avoid complications Problem:SN Integumentary/Wounds Goal:Patient/Caregive r will have improved healing and be free of signs and symptoms of complications Completed patient instructed on the following: healing process, signs and symptoms of infection, importance of good nutrition, importance of managing blood sugars, smoking cessation and when to report symptoms. Instruct Patient/Caregiver on wound/incision care procedure as ordered by physician Problem:SN Integumentary/Wounds Goal:Patient/Caregive r will have improved healing and be free of signs and symptoms of complications Completed patient instructed on and return demonstrated wound care as ordered by Physician. Continued need for Home Care Services Description: POC and certification renewed due to continuing [facility] needs. Problem:Recertificati on Goal:Ongoing review of POC and need for skilled services Com[facility] Visit Details Visit Type -SN ROUTINE Discipline -Half-Way Problems Problem Description Start Date Status Goals Interve ntions Medication Education Disciplines: Skilled Services 08/20/2022 Active 1 goal linked to scheduled/documen pawan intervention 1 goal intervention scheduled/document ed in this visit Sepsis Disciplines: Skilled Services 08/20/2022 Active 1 goal linked to scheduled/documen pawan intervention 1 goal intervention scheduled/document ed in this visit Physician Specific Parameters Disciplines: Skilled Services 08/20/2022 Active 1 goal linked to scheduled/documen pawan intervention 1 goal intervention scheduled/document ed in this visit Risk for Falls Disciplines: Skilled Services 08/20/2022 Active 1 goal linked to scheduled/documen pawan intervention 1 goal intervention scheduled/document ed in this visit Pain Disciplines: Skilled Services 08/20/2022 Active 1 goal linked to scheduled/documen pawan intervention 1 goal intervention scheduled/document ed in this visit Diabetic Foot Care Disciplines: Skilled Services 08/20/2022 Active 1 goal linked to scheduled/documen pawan intervention 1 goal intervention scheduled/document ed in this visit Oxygen Disciplines: Skilled Services 08/20/2022 Active 1 goal linked to scheduled/documen pawan intervention 1 goal intervention scheduled/document ed in this visit High Risk Medications Disciplines: Skilled Services 08/20/2022 Active 1 goal linked to scheduled/documen pawan intervention 4 goal interventions scheduled/document ed in this visit Discharge Disciplines: Skilled Services 08/20/2022 Active 1 goal linked to scheduled/documen pawan intervention 1 goal intervention scheduled/document ed in this visit SN Edema Disciplines: SN 08/20/2022 Active 1 goal linked to scheduled/documen pawan intervention 1 goal intervention scheduled/document ed in this visit SN Diabetes Disciplines: SN 08/20/2022 Active 1 goal linked to scheduled/documen pawan intervention 1 goal intervention scheduled/document ed in this visit SN Cardiovascular Condition Disciplines: SN 08/20/2022 Active 1 goal linked to scheduled/documen pawan intervention 1 goal intervention scheduled/document ed in this visit SN Learning Assessment Disciplines: SN 08/20/2022 Active 1 goal linked to scheduled/documen pawan intervention 1 goal intervention scheduled/document ed in this visit SN COPD Disciplines: SN 09/22/2022 Active 1 goal linked to scheduled/documen pawan intervention 3 goal interventions scheduled/document ed in this visit Recertification Disciplines: Skilled Services 12/17/2022 Active 1 goal linked to scheduled/documen pawan intervention 1 goal intervention scheduled/document ed in this visit SN Integumentary/Wound s Disciplines: SN 02/04/2023 Active 1 goal linked to scheduled/documen pawan intervention 5 goal interventions scheduled/document ed in this visit Recertification Disciplines: Skilled Services 02/13/2023 Active 1 goal linked to scheduled/cory villalta intervention 1 goal intervention scheduled/document ed in this visit Goals Goal Associated Problem Outcome Goal Met? Visit Notes Patient/caregiver will demonstrate ability to obtain, store, identify and administer ordered medications, keep accurate medication list in home, and adhere to medication schedule Description: Patient/caregiver will demonstrate ability to obtain, store, identify and administer ordered medications, keep accurate medication list in home, and adhere to medication schedule by 04-16-23. Medication Education No Patient/caregiver will be able to identify and report symptoms of sepsis Description: Patient/caregiver will be able to identify signs/symptoms of sepsis infection and will verbalize actions to take if suspected by 04-16-23. Sepsis No Patient to maintain parameters within physician-specified ranges throughout certification period Physician Specific Parameters No Manage Risk for falls Description: Patient/caregiver will verbalize knowledge of individualized fall prevention strategies by 04-16-23. Risk for Falls No Manage Pain Description: Patient/caregiver will verbalize knowledge and understanding of appropriate techniques to control pain, including pain medication and non-pharmacological techniques. Patient will verbalize or demonstrate an acceptable level of pain as evidenced by a pain score of 0-3/10 and improvement in ability to perform activities of daily living to be achieved by 04-16-23. Pain No Manage diabetic foot care Description: Patient/caregiver will demonstrate basic understanding of and compliance with diabetic self-care management as evidenced by verbalizing purpose of daily foot care and assessment by 04-16-23. Diabetic Foot Care No Manage oxygen Description: Patient/caregiver will use oxygen safely and effectively in home by verbalizing and demonstrating oxygen safety by 04-16-23. Oxygen No Patient/caregiver will teach back high risk medication side effect and precaution education High Risk Medications No Manage discharge planning Description: Patient/caregiver will verbalize understanding of ongoing discharge plan provided related to disease management, arrangements for outpatient and/or community services, obtaining medications, supplies, and DME, as needed throughout certification period. Discharge No Patient will have improved edema management Description: Patient/caregiver will demonstrate an understanding of edema management strategies as evidenced by resolution or stabilization of edema by 04-16-23. SN Edema No Improved management of diabetes Description: Improve diabetic management as evidenced by patient/caregiver able to teach back diabetic management strategies by 04-16-23. SN Diabetes No Improved management of cardiovascular disease Description: Improve patient/caregiver management of cardiac disease as evidenced by patient/caregiver ability to teach back cardiac management strategies by 04-16-23. SN Cardiovascular Condition No Demonstrate understanding of education Description: Patient and/or caregiver will verbalize understanding of educational instruction provided throughout certification period. SN Learning Assessment No Improved management of COPD Description: Improve COPD management as evidenced by decreased reports of dyspnea, medication compliance, and patient able to teach back strategies to manage condition. Goal to be achieved by 04-16-23 SN COPD No Ongoing review of POC and need for skilled services Recertification No Patient/Caregiver will have improved healing and be free of signs and symptoms of complications Description: Patient/caregiver will verbalize management strategies to promote wound healing & prevent complications as evidenced by improved healing & no complications. SN Integumentary/Wounds No Ongoing review of POC and need for skilled services Recertification No Interventions Intervention Associated Problem/Goal Status Variance Visit Notes Medication Education Description: Evaluate/instruct patient/caregiver on obtaining, storing, identifying and administering ordered medications as well as keeping accurate medication list in the home and adhereing to medication schedule Problem:Medication Education Goal:Patient/caregive r will demonstrate ability to obtain, store, identify and administer ordered medications, keep accurate medication list in home, and adhere to medication schedule Completed Patient instructed on importance of keeping accurate medication list in home, adhering to medication schedule and proper storage of medications. Risk of Sepsis Description: Patient is at risk for sepsis. Monitor closely for s/s of sepsis. Problem:Sepsis Goal:Patient/caregive r will be able to identify and report symptoms of sepsis Completed SPO2 Description: Notify if pulse ox is <92% at rest. Problem:Physician Specific Parameters Goal:Patient to maintain parameters within physician-specified ranges throughout certification period Completed Instruct on individual fall risk factors and strategies to prevent falls and injuries caused by falls. Problem:Risk for Falls Goal:Manage Risk for falls Completed SN: Patient instructed on Eliminating Environmental Hazards: Keep pathways clear, Keep pets out of pathways, Keep rooms and walkways well lit, Wear supportive shoes or non-skid socks and Keep frequently used items within reach Instruct on pain and instruct on strategies to control pain Problem:Pain Goal:Manage Pain Completed patient instructed on techniques to control pain including Pharmacological measures and Non-Pharmacological measures; rest, positioning/elevation, mobility/therapeutic exercise, distraction, breathing/relaxation and use of DME/assistive devices. Monitor lower extremities for skin lesions and educate on proper foot care Problem:Diabetic Foot Care Goal:Manage diabetic foot care Completed patient instructed on diabetic foot care including daily skin inspection, wearing proper footwear/avoiding going barefoot, wash/dry feet thoroughly, applying moisturizer, avoiding between toes and toenail care. Instruct on fire safety and safe and effective use of oxygen in the home Problem:Oxygen Goal:Manage oxygen Completed patient instructed on: findings of safety risk assessment, causes of fires, firerisks for neighboring residences and buildings, precautions that can prevent fire-related injuries and oxygen safety as outlined in Home Care Patient Handbook patient demonstrate compliance with safety recommendations. Opioids- educated on high risk medication Problem:High Risk Medications Goal:Patient/caregive r will teach back high risk medication side effect and precaution education Completed patient educated on taking medication(s) as prescribed by provider. Do not stop medication or alter doses without speaking with your provider. Discuss medication effectiveness or side effect concerns with your provider and home care team. Only take opioids as prescribed, do not share your medications, and take proper precautions in storing and properly disposing of opioids once no longer needed. Possible side effects of opioid medication including sedation, decreased rate of breathing, and constipation. Report over sedation to prescribing provider and practice deep breathing techniques every hour while awake. Prevent constipation by increasing water and fiber intake, increasing activity as tolerated, and use stool softener(s) as prescribed. Hypoglycemic (including insulin)- educated on high risk medication Problem:High Risk Medications Goal:Patient/caregive r will teach back high risk medication side effect and precaution education Completed patient educated on taking medication(s) as prescribed by provider. Do not stop medication or skip/alter doses without speaking with your provider. Discuss medication effectiveness or side effect concerns with your provider and home care team. Check blood sugars and keep log as ordered by provider. Monitor for side effects of hypoglycemia such as increased weakness or shaking, moist skin, sweating, fast heartbeat, dizziness, sudden hunger, confusion, pale skin, numbness in mouth or tongue, irritability, nervousness, unsteadiness, nightmares, bad dreams, and restless sleep. Checking your blood sugar routinely and eating a consistent diabetic diet can help regulate blood sugars and reduce side effects. Antiplatelet- educated on high risk medication Problem:High Risk Medications Goal:Patient/caregive r will teach back high risk medication side effect and precaution education Completed patient educated on taking medication(s) as prescribed by provider. Do not stop medication or alter doses without speaking with your provider. Discuss medication effectiveness or side effect concerns with your provider and home care team. Discuss all medications you are taking, even ppbu-fnq-afxjaxe medicines, with your provider and pharmacist since many drugs can interact with antiplatelet medications. If you forget to take a dose, DO NOT take a double dose. Take the missed dose as soon as possible on the same day. DO NOT take a double dose the next day to make up for the missed dose. Watch for signs of abnormal or excessive bleeding and bruising (refer to Bleeding Precautions education). Call your health care provider right away if you suspect something is wrong. Antibiotic- educated on high risk medication Problem:High Risk Medications Goal:Patient/caregive r will teach back high risk medication side effect and precaution education Completed patient educated on taking medication(s) as prescribed by provider. Do not stop medication or alter doses without speaking with your provider. Discuss medication effectiveness or side effect concerns with your provider and home care team. Take the full dispensed amount even if you start feeling better, as bacteria can become resistant to antibiotic treatment if you do not finish your prescription. Common side effects are upset stomach and diarrhea. Take your antibiotics with food unless otherwise indicated to help with indigestion. Taking an zdyx-pkl-klxaaan probiotic or eating yogurt with live and active cultures three times a day can help prevent antibiotic-associated diarrhea. Call your provider immediately if you develop rashes or hives as this could be a delayed allergic reaction. Seek emergency treatment if you develop severe allergic reaction symptoms such as mouth or tongue swelling. Instruct on ongoing discharge plan Problem:Discharge Goal:Manage discharge planning Completed Ongoing Discharge plan: Discharge plan discussed with patient including frequency and duration for home SN and plan for transition to: caregiver assistance. Assess and instruct on measures to reduce edema Problem:SN Edema Goal:Patient will have improved edema management Completed patient instructed on elevation, compression, diet, medication compliance and benefits of activity. Instruct on diabetes disease process and management of chronic condition Description: Patient has needs for education of diabetes. Problem:SN Diabetes Goal:Improved management of diabetes Completed patient assessed and reinforced on diabetes disease process, diet education, how to carb count and recogonizing s/s of hypoglycemia and hyperglycemia as found in the diabetes self-care booklets. Instruct on cardiovascular disease process and management of condition Description: Patient has following cardiac diagnosis(es): CAD. Problem:SN Cardiovascular Condition Goal:Improved management of cardiovascular disease Completed patient instructed on cardiac disease process, self monitoring & symptom reporting and Cardiac Diet. Instruct and educate on knowledge deficits Problem:SN Learning Assessment Goal:Demonstrate understanding of education Completed patient verbalize and/or demonstrate understanding of nursing education completed today. Education methods include: verbal cues and visual cues. Further education required to improve knowledge and compliance with cardiac disease management, diabetic care management, fall prevention/home safety strategies, incision/wound care management and pulmonary disease management. Maintenance COPD Description: Reinforce Acute and Sub-acute management education. Instruct on review zone sheet, nutrition in relation to COPD management, energy conservation, pacing activities, independence in ADLs vs what caregiver should be helping with, home exercise, additional COPD resources available like chronic care clinics as found in the COPD binder. Problem:SN COPD Goal:Improved management of COPD Completed Reinforced Acute and Sub-acute management education. patient reinforced on zone sheet, nutrition in relation to COPD management and energy conservation pacing activities, Romeo in ADLs vs what caregiver should be helping with and home exercise as found in the COPD binder. Sub-acute COPD Description: Reinforce Acute COPD management education. Instruct on zone sheet, methods to reduce infection risks, anxiety management including relaxation techniques, importance of sleep, stress reduction, and coping strategies for living with COPD as found in the COPD binder. Problem:SN COPD Goal:Improved management of COPD Completed Reinforced Acute COPD management education. patient reinforced on zone sheet, methods to reduce infection risks, anxiety management including: relaxation techniques, importance of sleep and stress reduction and coping strategies for living with COPD as found in the COPD binder. Acute COPD Description: Instruct on defintion of COPD, signs and symptoms of COPD exacerbation, use of zone sheet, use of MDIs, difference between rescue vs maintenance inhalers, use of nebulizer, smoking cessation, breathing management including pursed lip breathing, diaphragmatic breathing, positioning to reduce SOB, controlled coughing, use of incentive spirometer, and use of acapela as found in the COPD binder. Problem:SN COPD Goal:Improved management of COPD Completed patient reinforced on defintion of COPD, signs and symptoms of COPD exacerbation, use of zone sheet, use of MDIs, difference between rescue vs maintenance inhalers, smoking cessation and breathing management: pursed lip breathing, diaphragmatic breathing and positioning to reduce SOB as found in the COPD binder. Continued need for Home Care Services Description: POC and certification renewed due to continuing [facility] needs. Problem:Recertificati on Goal:Ongoing review of POC and need for skilled services Completed Wound Care: Peform wound care (3) Description: Wound Care Order: Wound location: scrotum Wound type (etiology): Traumatic Order: Cleanse with Chlorahexadine or mild soap and water, rinse pat dry. apply lidocaine, apply protective barrier cream cover with dry dressing Frequency: daily and as needed for soiled Wound care to be completed by patient except for scheduled SN wound care visits. Measure wound/incision at least weekly. Okay to substitute comparable products from home care formulary. Problem:SN Integumentary/Wounds Goal:Patient/Caregive r will have improved healing and be free of signs and symptoms of complications Completed Completed by SN. Patient did tolerate well. Wound Care: Perform wound care (2) Description: Wound Care Order: Wound location: Left inner thigh Wound type (etiology): Boil Order: Cleanse with Chlorahexadine or mild soap and water, rinse pat dry. apply lidocaine, pack with aquacell silver ag, cover with dry dressing Frequency: every other day and as needed for soiled Wound care to be completed by patient except for scheduled SN wound care visits. Measure wound/incision at least weekly. Okay to substitute comparable products from home care formulary. Problem:SN Integumentary/Wounds Goal:Patient/Caregive r will have improved healing and be free of signs and symptoms of complications Completed Completed by SN. Patient did tolerate well. Wound Care: Perform wound care (1) Description: Wound Care Order: Wound location: left inner thigh Wound type (etiology): Surgical Wound Order: Cleanse with Chlorahexadine or mild soap and water, rinse pat dry. apply lidocaine, pack with aquacell silver ag, cover with dry dressing Frequency: change every other day and as needed Wound care to be completed by patient except for scheduled SN wound care visits. Measure wound/incision at least weekly. Okay to substitute comparable products from home care formulary. Problem:SN Integumentary/Wounds Goal:Patient/Caregive r will have improved healing and be free of signs and symptoms of complications Completed Completed by SN. Patient did tolerate well. Instruct patient/caregiver healing process and management measures to promote healing and avoid complications Problem:SN Integumentary/Wounds Goal:Patient/Caregive r will have improved healing and be free of signs and symptoms of complications Completed patient instructed on the following: healing process, signs and symptoms of infection, importance of good nutrition, importance of managing blood sugars, smoking cessation and when to report symptoms. Instruct Patient/Caregiver on wound/incision care procedure as ordered by physician Problem:SN Integumentary/Wounds Goal:Patient/Caregive r will have improved healing and be free of signs and symptoms of complications Completed patient instructed on and return demonstrated wound care as ordered by Physician. Continued need for Home Care Services Description: POC and certification renewed due to continuing [facility] needs. Problem:Recertificati on Goal:Ongoing review of POC and need for skilled services Completed documented in this encounter [facility]'s home Plan of care note* Visit Details Visit Type -SN ROUTINE Discipline -Half-Way Problems Problem Description Start Date Status Goals Interve ntions Medication Education Disciplines: Skilled Services 08/20/2022 Active 1 goal linked to scheduled/documen pawan intervention 1 goal intervention scheduled/document ed in this visit Sepsis Disciplines: Skilled Services 08/20/2022 Active 1 goal linked to scheduled/documen pawan intervention 1 goal intervention scheduled/document ed in this visit Physician Specific Parameters Disciplines: Skilled Services 08/20/2022 Active 1 goal linked to scheduled/documen pawan intervention 1 goal intervention scheduled/document ed in this visit Risk for Falls Disciplines: Skilled Services 08/20/2022 Active 1 goal linked to scheduled/documen pawan intervention 1 goal intervention scheduled/document ed in this visit Pain Disciplines: Skilled Services 08/20/2022 Active 1 goal linked to scheduled/documen pawan intervention 1 goal intervention scheduled/document ed in this visit Diabetic Foot Care Disciplines: Skilled Services 08/20/2022 Active 1 goal linked to scheduled/documen pawan intervention 1 goal intervention scheduled/document ed in this visit Oxygen Disciplines: Skilled Services 08/20/2022 Active 1 goal linked to scheduled/documen pawan intervention 1 goal intervention scheduled/document ed in this visit High Risk Medications Disciplines: Skilled Services 08/20/2022 Active 1 goal linked to scheduled/documen pawan intervention 4 goal interventions scheduled/document ed in this visit Discharge Disciplines: Skilled Services 08/20/2022 Active 1 goal linked to scheduled/documen pawan intervention 1 goal intervention scheduled/document ed in this visit SN Edema Disciplines: SN 08/20/2022 Active 1 goal linked to scheduled/documen pawan intervention 1 goal intervention scheduled/document ed in this visit SN Diabetes Disciplines: SN 08/20/2022 Active 1 goal linked to scheduled/documen pawan intervention 1 goal intervention scheduled/document ed in this visit SN Cardiovascular Condition Disciplines: SN 08/20/2022 Active 1 goal linked to scheduled/documen pawan intervention 1 goal intervention scheduled/document ed in this visit SN Learning Assessment Disciplines: SN 08/20/2022 Active 1 goal linked to scheduled/documen pawan intervention 1 goal intervention scheduled/document ed in this visit SN COPD Disciplines: SN 09/22/2022 Active 1 goal linked to scheduled/documen pawan intervention 3 goal interventions scheduled/document ed in this visit Recertification Disciplines: Skilled Services 12/17/2022 Active 1 goal linked to scheduled/documen pawan intervention 1 goal intervention scheduled/document ed in this visit SN Integumentary/Wound s Disciplines: SN 02/04/2023 Active 1 goal linked to scheduled/documen pawan intervention 3 goal interventions scheduled/document ed in this visit Recertification Disciplines: Skilled Services 02/13/2023 Active 1 goal linked to scheduled/documen pawan intervention 1 goal intervention scheduled/document ed in this visit Goals Goal Associated Problem Outcome Goal Met? Visit Notes Patient/caregiver will demonstrate ability to obtain, store, identify and administer ordered medications, keep accurate medication list in home, and adhere to medication schedule Description: Patient/caregiver will demonstrate ability to obtain, store, identify and administer ordered medications, keep accurate medication list in home, and adhere to medication schedule by 04-16-23. Medication Education No Patient/caregiver will be able to identify and report symptoms of sepsis Description: Patient/caregiver will be able to identify signs/symptoms of sepsis infection and will verbalize actions to take if suspected by 04-16-23. Sepsis No Patient to maintain parameters within physician-specified ranges throughout certification period Physician Specific Parameters No Manage Risk for falls Description: Patient/caregiver will verbalize knowledge of individualized fall prevention strategies by 04-16-23. Risk for Falls No Manage Pain Description: Patient/caregiver will verbalize knowledge and understanding of appropriate techniques to control pain, including pain medication and non-pharmacological techniques. Patient will verbalize or demonstrate an acceptable level of pain as evidenced by a pain score of 0-3/10 and improvement in ability to perform activities of daily living to be achieved by 04-16-23. Pain No Manage diabetic foot care Description: Patient/caregiver will demonstrate basic understanding of and compliance with diabetic self-care management as evidenced by verbalizing purpose of daily foot care and assessment by 04-16-23. Diabetic Foot Care No Manage oxygen Description: Patient/caregiver will use oxygen safely and effectively in home by verbalizing and demonstrating oxygen safety by 04-16-23. Oxygen No Patient/caregiver will teach back high risk medication side effect and precaution education High Risk Medications No Manage discharge planning Description: Patient/caregiver will verbalize understanding of ongoing discharge plan provided related to disease management, arrangements for outpatient and/or community services, obtaining medications, supplies, and DME, as needed throughout certification period. Discharge No Patient will have improved edema management Description: Patient/caregiver will demonstrate an understanding of edema management strategies as evidenced by resolution or stabilization of edema by 04-16-23. SN Edema No Improved management of diabetes Description: Improve diabetic management as evidenced by patient/caregiver able to teach back diabetic management strategies by 04-16-23. SN Diabetes No Improved management of cardiovascular disease Description: Improve patient/caregiver management of cardiac disease as evidenced by patient/caregiver ability to teach back cardiac management strategies by 04-16-23. SN Cardiovascular Condition No Demonstrate understanding of education Description: Patient and/or caregiver will verbalize understanding of educational instruction provided throughout certification period. SN Learning Assessment No Improved management of COPD Description: Improve COPD management as evidenced by decreased reports of dyspnea, medication compliance, and patient able to teach back strategies to manage condition. Goal to be achieved by 04-16-23 SN COPD No Ongoing review of POC and need for skilled services Recertification No Patient/Caregiver will have improved healing and be free of signs and symptoms of complications Description: Patient/caregiver will verbalize management strategies to promote wound healing & prevent complications as evidenced by improved healing & no complications. SN Integumentary/Wounds No Ongoing review of POC and need for skilled services Recertification No Interventions Intervention Associated Problem/Goal Status Variance Visit Notes Medication Education Description: Evaluate/instruct patient/caregiver on obtaining, storing, identifying and administering ordered medications as well as keeping accurate medication list in the home and adhereing to medication schedule Problem:Medication Education Goal:Patient/caregive r will demonstrate ability to obtain, store, identify and administer ordered medications, keep accurate medication list in home, and adhere to medication schedule Completed Patient instructed on importance of keeping accurate medication list in home, adhering to medication schedule and proper storage of medications. Risk of Sepsis Description: Patient is at risk for sepsis. Monitor closely for s/s of sepsis. Problem:Sepsis Goal:Patient/caregive r will be able to identify and report symptoms of sepsis Completed SPO2 Description: Notify if pulse ox is <92% at rest. Problem:Physician Specific Parameters Goal:Patient to maintain parameters within physician-specified ranges throughout certification period Completed Instruct on individual fall risk factors and strategies to prevent falls and injuries caused by falls. Problem:Risk for Falls Goal:Manage Risk for falls Completed SN: Patient instructed on Eliminating Environmental Hazards: Keep pathways clear, Keep pets out of pathways, Remove unsafe rugs, Keep rooms and walkways well lit, Wear supportive shoes or non-skid socks and Keep frequently used items within reach Instruct on pain and instruct on strategies to control pain Problem:Pain Goal:Manage Pain Completed patient instructed on techniques to control pain including Pharmacological measures and Non-Pharmacological measures; rest, positioning/elevation, mobility/therapeutic exercise, distraction and breathing/relaxation. Monitor lower extremities for skin lesions and educate on proper foot care Problem:Diabetic Foot Care Goal:Manage diabetic foot care Completed patient instructed on diabetic foot care including daily skin inspection, wearing proper footwear/avoiding going barefoot, wash/dry feet thoroughly, applying moisturizer, avoiding between toes and toenail care. Instruct on fire safety and safe and effective use of oxygen in the home Problem:Oxygen Goal:Manage oxygen Completed patient instructed on: findings of safety risk assessment, causes of fires, firerisks for neighboring residences and buildings, precautions that can prevent fire-related injuries, oxygen safety as outlined in Home Care Patient Handbook and recommendations for specific safety risks identified in the home: maintenance of working smoke detectors and changing batteries, establishment of fire escape plan, telephone accessibility and implementation of no-smoking policy in home, including e-cigarettes and posting of No-Smoking signs on entrance doors patient demonstrate compliance with safety recommendations. Opioids- educated on high risk medication Problem:High Risk Medications Goal:Patient/caregive r will teach back high risk medication side effect and precaution education Completed patient educated on taking medication(s) as prescribed by provider. Do not stop medication or alter doses without speaking with your provider. Discuss medication effectiveness or side effect concerns with your provider and home care team. Only take opioids as prescribed, do not share your medications, and take proper precautions in storing and properly disposing of opioids once no longer needed. Possible side effects of opioid medication including sedation, decreased rate of breathing, and constipation. Report over sedation to prescribing provider and practice deep breathing techniques every hour while awake. Prevent constipation by increasing water and fiber intake, increasing activity as tolerated, and use stool softener(s) as prescribed. Hypoglycemic (including insulin)- educated on high risk medication Problem:High Risk Medications Goal:Patient/caregive r will teach back high risk medication side effect and precaution education Completed patient educated on taking medication(s) as prescribed by provider. Do not stop medication or skip/alter doses without speaking with your provider. Discuss medication effectiveness or side effect concerns with your provider and home care team. Check blood sugars and keep log as ordered by provider. Monitor for side effects of hypoglycemia such as increased weakness or shaking, moist skin, sweating, fast heartbeat, dizziness, sudden hunger, confusion, pale skin, numbness in mouth or tongue, irritability, nervousness, unsteadiness, nightmares, bad dreams, and restless sleep. Checking your blood sugar routinely and eating a consistent diabetic diet can help regulate blood sugars and reduce side effects. Antiplatelet- educated on high risk medication Problem:High Risk Medications Goal:Patient/caregive r will teach back high risk medication side effect and precaution education Completed patient educated on taking medication(s) as prescribed by provider. Do not stop medication or alter doses without speaking with your provider. Discuss medication effectiveness or side effect concerns with your provider and home care team. Discuss all medications you are taking, even cjqj-vus-cybkeas medicines, with your provider and pharmacist since many drugs can interact with antiplatelet medications. If you forget to take a dose, DO NOT take a double dose. Take the missed dose as soon as possible on the same day. DO NOT take a double dose the next day to make up for the missed dose. Watch for signs of abnormal or excessive bleeding and bruising (refer to Bleeding Precautions education). Call your health care provider right away if you suspect something is wrong. Antibiotic- educated on high risk medication Problem:High Risk Medications Goal:Patient/caregive r will teach back high risk medication side effect and precaution education Completed patient educated on taking medication(s) as prescribed by provider. Do not stop medication or alter doses without speaking with your provider. Discuss medication effectiveness or side effect concerns with your provider and home care team. Take the full dispensed amount even if you start feeling better, as bacteria can become resistant to antibiotic treatment if you do not finish your prescription. Common side effects are upset stomach and diarrhea. Take your antibiotics with food unless otherwise indicated to help with indigestion. Taking an [id number] probiotic or eating yogurt with live and active cultures three times a day can help prevent antibiotic-associated diarrhea. Call your provider immediately if you develop rashes or hives as this could be a delayed allergic reaction. Seek emergency treatment if you develop severe allergic reaction symptoms such as mouth or tongue swelling. Instruct on ongoing discharge plan Problem:Discharge Goal:Manage discharge planning Completed Ongoing Discharge plan: Discharge plan discussed with patient including frequency and duration for home SN and plan for transition to: caregiver assistance. Assess and instruct on measures to reduce edema Problem:SN Edema Goal:Patient will have improved edema management Completed patient instructed on elevation, compression, diet, medication compliance and benefits of activity. Instruct on diabetes disease process and management of chronic condition Description: Patient has needs for education of diabetes. Problem:SN Diabetes Goal:Improved management of diabetes Completed patient assessed and reinforced on diabetes disease process, diet education, how to carb count, recogonizing s/s of hypoglycemia and hyperglycemia and managing sick days as found in the diabetes self-care booklets. Instruct on cardiovascular disease process and management of condition Description: Patient has following cardiac diagnosis(es): CAD. Problem:SN Cardiovascular Condition Goal:Improved management of cardiovascular disease Completed patient instructed on cardiac disease process, self monitoring & symptom reporting and Cardiac Diet. Instruct and educate on knowledge deficits Problem:SN Learning Assessment Goal:Demonstrate understanding of education Completed patient verbalize and/or demonstrate understanding of nursing education completed today. Education methods include: verbal cues and teach back. Further education required to improve knowledge and compliance with diabetic care management, fall prevention/home safety strategies, incision/wound care management and pulmonary disease management. Maintenance COPD Description: Reinforce Acute and Sub-acute management education. Instruct on review zone sheet, nutrition in relation to COPD management, energy conservation, pacing activities, independence in ADLs vs what caregiver should be helping with, home exercise, additional COPD resources available like chronic care clinics as found in the COPD binder. Problem:SN COPD Goal:Improved management of COPD Completed Reinforced Acute and Sub-acute management education. patient reinforced on zone sheet, nutrition in relation to COPD management and energy conservation pacing activities and Romeo in ADLs vs what caregiver should be helping with as found in the COPD binder. Sub-acute COPD Description: Reinforce Acute COPD management education. Instruct on zone sheet, methods to reduce infection risks, anxiety management including relaxation techniques, importance of sleep, stress reduction, and coping strategies for living with COPD as found in the COPD binder. Problem:SN COPD Goal:Improved management of COPD Completed Reinforced Acute COPD management education. patient reinforced on zone sheet, methods to reduce infection risks, anxiety management including: relaxation techniques, importance of sleep and stress reduction and coping strategies for living with COPD as found in the COPD binder. Acute COPD Description: Instruct on defintion of COPD, signs and symptoms of COPD exacerbation, use of zone sheet, use of MDIs, difference between rescue vs maintenance inhalers, use of nebulizer, smoking cessation, breathing management including pursed lip breathing, diaphragmatic breathing, positioning to reduce SOB, controlled coughing, use of incentive spirometer, and use of acapela as found in the COPD binder. Problem:SN COPD Goal:Improved management of COPD Completed patient reinforced on defintion of COPD, signs and symptoms of COPD exacerbation, use of zone sheet, difference between rescue vs maintenance inhalers, use of nebulizer, smoking cessation and breathing management: pursed lip breathing, diaphragmatic breathing, positioning to reduce SOB, controlled coughing and use of incentive spirometer as found in the COPD binder. Continued need for Home Care Services Description: POC and certification renewed due to continuing [facility] needs. Problem:Recertificati on Goal:Ongoing review of POC and need for skilled services Completed Wound Care: Perform wound care (1) Description: Wound Care Order: Wound location: left inner thigh Wound type (etiology): Surgical Wound Order: Cleanse with Chlorahexadine or mild soap and water, rinse pat dry. apply lidocaine, pack with aquacell silver ag, cover with dry dressing Frequency: change every other day and as needed Wound care to be completed by patient except for scheduled SN wound care visits. Measure wound/incision at least weekly. Okay to substitute comparable products from home care formulary. Problem:SN Integumentary/Wounds Goal:Patient/Caregive r will have improved healing and be free of signs and symptoms of complications Completed Completed by patient/caregiver completed independently . Patient did tolerate well. Instruct patient/caregiver healing process and management measures to promote healing and avoid complications Problem:SN Integumentary/Wounds Goal:Patient/Caregive r will have improved healing and be free of signs and symptoms of complications Completed patient instructed on the following: healing process, signs and symptoms of infection, importance of good nutrition, importance of managing blood sugars, smoking cessation and when to report symptoms. Instruct Patient/Caregiver on wound/incision care procedure as ordered by physician Problem:SN Integumentary/Wounds Goal:Patient/Caregive r will have improved healing and be free of signs and symptoms of complications Completed patient instructed on wound care as ordered by Physician. Continued need for Home Care Services Description: POC and certification renewed due to continuing [facility] needs. Problem:Recertificati on Goal:Ongoing review of POC and need for skilled services Completed documented in this encounter [facility]'s home Plan of care note* Visit Details Visit Type -SN ROUTINE Discipline -Half-Way Problems Problem Description Start Date Status Goals Interve ntions Medication Education Disciplines: Skilled Services 08/20/2022 Active 1 goal linked to scheduled/documen pawan intervention 1 goal intervention scheduled/document ed in this visit Sepsis Disciplines: Skilled Services 08/20/2022 Active 1 goal linked to scheduled/documen pawan intervention 1 goal intervention scheduled/document ed in this visit Physician Specific Parameters Disciplines: Skilled Services 08/20/2022 Active 1 goal linked to scheduled/documen pawan intervention 1 goal intervention scheduled/document ed in this visit Risk for Falls Disciplines: Skilled Services 08/20/2022 Active 1 goal linked to scheduled/documen pawan intervention 1 goal intervention scheduled/document ed in this visit Pain Disciplines: Skilled Services 08/20/2022 Active 1 goal linked to scheduled/documen pawan intervention 1 goal intervention scheduled/document ed in this visit Diabetic Foot Care Disciplines: Skilled Services 08/20/2022 Active 1 goal linked to scheduled/documen pawan intervention 1 goal intervention scheduled/document ed in this visit Oxygen Disciplines: Skilled Services 08/20/2022 Active 1 goal linked to scheduled/documen pawan intervention 1 goal intervention scheduled/document ed in this visit High Risk Medications Disciplines: Skilled Services 08/20/2022 Active 1 goal linked to scheduled/documen pawan intervention 4 goal interventions scheduled/document ed in this visit SN Edema Disciplines: SN 08/20/2022 Active 1 goal linked to scheduled/documen pawan intervention 1 goal intervention scheduled/document ed in this visit SN Diabetes Disciplines: SN 08/20/2022 Active 1 goal linked to scheduled/documen pawan intervention 1 goal intervention scheduled/document ed in this visit SN Cardiovascular Condition Disciplines: SN 08/20/2022 Active 1 goal linked to scheduled/documen pawan intervention 1 goal intervention scheduled/document ed in this visit SN Learning Assessment Disciplines: SN 08/20/2022 Active 1 goal linked to scheduled/documen pawan intervention 1 goal intervention scheduled/document ed in this visit SN COPD Disciplines: SN 09/22/2022 Active 1 goal linked to scheduled/documen pawan intervention 1 goal intervention scheduled/document ed in this visit SN Integumentary/Wound s Disciplines: SN 02/04/2023 Active 1 goal linked to scheduled/documen pawan intervention 5 goal interventions scheduled/document ed in this visit Goals Goal Associated Problem Outcome Goal Met? Visit Notes Patient/caregiver will demonstrate ability to obtain, store, identify and administer ordered medications, keep accurate medication list in home, and adhere to medication schedule Description: Patient/caregiver will demonstrate ability to obtain, store, identify and administer ordered medications, keep accurate medication list in home, and adhere to medication schedule by 04-16-23. Medication Education No Patient/caregiver will be able to identify and report symptoms of sepsis Description: Patient/caregiver will be able to identify signs/symptoms of sepsis infection and will verbalize actions to take if suspected by 04-16-23. Sepsis No Patient to maintain parameters within physician-specified ranges throughout certification period Physician Specific Parameters No Manage Risk for falls Description: Patient/caregiver will verbalize knowledge of individualized fall prevention strategies by 04-16-23. Risk for Falls No Manage Pain Description: Patient/caregiver will verbalize knowledge and understanding of appropriate techniques to control pain, including pain medication and non-pharmacological techniques. Patient will verbalize or demonstrate an acceptable level of pain as evidenced by a pain score of 0-3/10 and improvement in ability to perform activities of daily living to be achieved by 04-16-23. Pain No Manage diabetic foot care Description: Patient/caregiver will demonstrate basic understanding of and compliance with diabetic self-care management as evidenced by verbalizing purpose of daily foot care and assessment by 04-16-23. Diabetic Foot Care No Manage oxygen Description: Patient/caregiver will use oxygen safely and effectively in home by verbalizing and demonstrating oxygen safety by 04-16-23. Oxygen No Patient/caregiver will teach back high risk medication side effect and precaution education High Risk Medications No Patient will have improved edema management Description: Patient/caregiver will demonstrate an understanding of edema management strategies as evidenced by resolution or stabilization of edema by 04-16-23. SN Edema No Improved management of diabetes Description: Improve diabetic management as evidenced by patient/caregiver able to teach back diabetic management strategies by 04-16-23. SN Diabetes No Improved management of cardiovascular disease Description: Improve patient/caregiver management of cardiac disease as evidenced by patient/caregiver ability to teach back cardiac management strategies by 04-16-23. SN Cardiovascular Condition No Demonstrate understanding of education Description: Patient and/or caregiver will verbalize understanding of educational instruction provided throughout certification period. SN Learning Assessment No Improved management of COPD Description: Improve COPD management as evidenced by decreased reports of dyspnea, medication compliance, and patient able to teach back strategies to manage condition. Goal to be achieved by 04-16-23 SN COPD No Patient/Caregiver will have improved healing and be free of signs and symptoms of complications Description: Patient/caregiver will verbalize management strategies to promote wound healing & prevent complications as evidenced by improved healing & no complications. SN Integumentary/Wounds No Interventions Intervention Associated Problem/Goal Status Variance Visit Notes Medication Education Description: Evaluate/instruct patient/caregiver on obtaining, storing, identifying and administering ordered medications as well as keeping accurate medication list in the home and adhereing to medication schedule Problem:Medication Education Goal:Patient/caregive r will demonstrate ability to obtain, store, identify and administer ordered medications, keep accurate medication list in home, and adhere to medication schedule Completed Patient instructed on importance of keeping accurate medication list in home, adhering to medication schedule and proper storage of medications. Risk of Sepsis Description: Patient is at risk for sepsis. Monitor closely for s/s of sepsis. Problem:Sepsis Goal:Patient/caregive r will be able to identify and report symptoms of sepsis Completed SPO2 Description: Notify if pulse ox is <92% at rest. Problem:Physician Specific Parameters Goal:Patient to maintain parameters within physician-specified ranges throughout certification period Completed Instruct on individual fall risk factors and strategies to prevent falls and injuries caused by falls. Problem:Risk for Falls Goal:Manage Risk for falls Completed SN: Patient instructed on Eliminating Environmental Hazards: Keep pathways clear, Keep pets out of pathways, Remove unsafe rugs, Move furniture from pathways and Keep rooms and walkways well lit Instruct on pain and instruct on strategies to control pain Problem:Pain Goal:Manage Pain Completed patient instructed on techniques to control pain including Pharmacological measures. Monitor lower extremities for skin lesions and educate on proper foot care Problem:Diabetic Foot Care Goal:Manage diabetic foot care Completed patient instructed on diabetic foot care including daily skin inspection, wearing proper footwear/avoiding going barefoot and wash/dry feet thoroughly. Instruct on fire safety and safe and effective use of oxygen in the home Problem:Oxygen Goal:Manage oxygen Completed patient instructed on: findings of safety risk assessment, causes of fires, firerisks for neighboring residences and buildings, precautions that can prevent fire-related injuries, oxygen safety as outlined in Home Care Patient Handbook and recommendations for specific safety risks identified in the home: maintenance of working smoke detectors and changing batteries, how to obtain fire extinguisher and establishment of fire escape plan patient demonstrate compliance with safety recommendations. Opioids- educated on high risk medication Problem:High Risk Medications Goal:Patient/caregive r will teach back high risk medication side effect and precaution education Completed patient educated on taking medication(s) as prescribed by provider. Do not stop medication or alter doses without speaking with your provider. Discuss medication effectiveness or side effect concerns with your provider and home care team. Only take opioids as prescribed, do not share your medications, and take proper precautions in storing and properly disposing of opioids once no longer needed. Possible side effects of opioid medication including sedation, decreased rate of breathing, and constipation. Report over sedation to prescribing provider and practice deep breathing techniques every hour while awake. Prevent constipation by increasing water and fiber intake, increasing activity as tolerated, and use stool softener(s) as prescribed. Hypoglycemic (including insulin)- educated on high risk medication Problem:High Risk Medications Goal:Patient/caregive r will teach back high risk medication side effect and precaution education Completed patient educated on taking medication(s) as prescribed by provider. Do not stop medication or skip/alter doses without speaking with your provider. Discuss medication effectiveness or side effect concerns with your provider and home care team. Check blood sugars and keep log as ordered by provider. Monitor for side effects of hypoglycemia such as increased weakness or shaking, moist skin, sweating, fast heartbeat, dizziness, sudden hunger, confusion, pale skin, numbness in mouth or tongue, irritability, nervousness, unsteadiness, nightmares, bad dreams, and restless sleep. Checking your blood sugar routinely and eating a consistent diabetic diet can help regulate blood sugars and reduce side effects. Antiplatelet- educated on high risk medication Problem:High Risk Medications Goal:Patient/caregive r will teach back high risk medication side effect and precaution education Completed patient educated on taking medication(s) as prescribed by provider. Do not stop medication or alter doses without speaking with your provider. Discuss medication effectiveness or side effect concerns with your provider and home care team. Discuss all medications you are taking, even [id number] medicines, with your provider and pharmacist since many drugs can interact with antiplatelet medications. If you forget to take a dose, DO NOT take a double dose. Take the missed dose as soon as possible on the same day. DO NOT take a double dose the next day to make up for the missed dose. Watch for signs of abnormal or excessive bleeding and bruising (refer to Bleeding Precautions education). Call your health care provider right away if you suspect something is wrong. Antibiotic- educated on high risk medication Problem:High Risk Medications Goal:Patient/caregive r will teach back high risk medication side effect and precaution education Completed patient educated on taking medication(s) as prescribed by provider. Do not stop medication or alter doses without speaking with your provider. Discuss medication effectiveness or side effect concerns with your provider and home care team. Take the full dispensed amount even if you start feeling better, as bacteria can become resistant to antibiotic treatment if you do not finish your prescription. Common side effects are upset stomach and diarrhea. Take your antibiotics with food unless otherwise indicated to help with indigestion. Taking an [id number] probiotic or eating yogurt with live and active cultures three times a day can help prevent antibiotic-associated diarrhea. Call your provider immediately if you develop rashes or hives as this could be a delayed allergic reaction. Seek emergency treatment if you develop severe allergic reaction symptoms such as mouth or tongue swelling. Assess and instruct on measures to reduce edema Problem:SN Edema Goal:Patient will have improved edema management Completed patient instructed on elevation and compression. Instruct on diabetes disease process and management of chronic condition Description: Patient has needs for education of diabetes. Problem:SN Diabetes Goal:Improved management of diabetes Completed patient assessed and instructed on diabetes disease process as found in the diabetes self-care booklets. Instruct on cardiovascular disease process and management of condition Description: Patient has following cardiac diagnosis(es): CAD. Problem:SN Cardiovascular Condition Goal:Improved management of cardiovascular disease Completed patient instructed on cardiac disease process. Instruct and educate on knowledge deficits Problem:SN Learning Assessment Goal:Demonstrate understanding of education Completed patient verbalize and/or demonstrate understanding of nursing education completed today. Education methods include: verbal cues and teach back. Further education required to improve knowledge and compliance with incision/wound care management. Maintenance COPD Description: Reinforce Acute and Sub-acute management education. Instruct on review zone sheet, nutrition in relation to COPD management, energy conservation, pacing activities, independence in ADLs vs what caregiver should be helping with, home exercise, additional COPD resources available like chronic care clinics as found in the COPD binder. Problem:SN COPD Goal:Improved management of COPD Completed Reinforced Acute and Sub-acute management education. patient reinforced on zone sheet as found in the COPD binder. Wound Care: Peform wound care (3) Description: Wound Care Order: Wound location: scrotum Wound type (etiology): Traumatic Order: Cleanse with Chlorahexadine or mild soap and water, rinse pat dry. apply lidocaine, apply protective barrier cream cover with dry dressing Frequency: daily and as needed for soiled Wound care to be completed by patient except for scheduled SN wound care visits. Measure wound/incision at least weekly. Okay to substitute comparable products from home care formulary. Problem:SN Integumentary/Wounds Goal:Patient/Caregive r will have improved healing and be free of signs and symptoms of complications Completed Completed by SN. Patient did tolerate well. Wound Care: Perform wound care (2) Description: Wound Care Order: Wound location: Left inner thigh Wound type (etiology): Boil Order: Cleanse with Chlorahexadine or mild soap and water, rinse pat dry. apply lidocaine, pack with aquacell silver ag, cover with dry dressing Frequency: every other day and as needed for soiled Wound care to be completed by patient except for scheduled SN wound care visits. Measure wound/incision at least weekly. Okay to substitute comparable products from home care formulary. Problem:SN Integumentary/Wounds Goal:Patient/Caregive r will have improved healing and be free of signs and symptoms of complications Completed Completed by SN. Patient did tolerate well. Wound Care: Perform wound care (1) Description: Wound Care Order: Wound location: left inner thigh Wound type (etiology): Surgical Wound Order: Cleanse with Chlorahexadine or mild soap and water, rinse pat dry. apply lidocaine, pack with aquacell silver ag, cover with dry dressing Frequency: change every other day and as needed Wound care to be completed by patient except for scheduled SN wound care visits. Measure wound/incision at least weekly. Okay to substitute comparable products from home care formulary. Problem:SN Integumentary/Wounds Goal:Patient/Caregive r will have improved healing and be free of signs and symptoms of complications Completed Completed by SN. Patient did tolerate well. Instruct patient/caregiver healing process and management measures to promote healing and avoid complications Problem:SN Integumentary/Wounds Goal:Patient/Caregive r will have improved healing and be free of signs and symptoms of complications Completed patient instructed on the following: healing process, signs and symptoms of infection and importance of good nutrition. Instruct Patient/Caregiver on wound/incision care procedure as ordered by physician Problem:SN Integumentary/Wounds Goal:Patient/Caregive r will have improved healing and be free of signs and symptoms of complications Completed patient instructed on wound care as ordered by Physician. documented in this encounter [facility]'s home Plan of care note* Visit Details Visit Type -SN ROUTINE Discipline -Half-Way Problems Problem Description Start Date Status Goals Interve ntions Medication Education Disciplines: Skilled Services 08/20/2022 Active 1 goal linked to scheduled/document ed intervention 1 goal intervention scheduled/documente d in this visit Sepsis Disciplines: Skilled Services 08/20/2022 Active 1 goal linked to scheduled/document ed intervention 1 goal intervention scheduled/documente d in this visit Physician Specific Parameters Disciplines: Skilled Services 08/20/2022 Active 1 goal linked to scheduled/document ed intervention 1 goal intervention scheduled/documente d in this visit Risk for Falls Disciplines: Skilled Services 08/20/2022 Active 1 goal linked to scheduled/document ed intervention 1 goal intervention scheduled/documente d in this visit Diabetic Foot Care Disciplines: Skilled Services 08/20/2022 Active 1 goal linked to scheduled/document ed intervention 1 goal intervention scheduled/documente d in this visit Oxygen Disciplines: Skilled Services 08/20/2022 Active 1 goal linked to scheduled/document ed intervention 1 goal intervention scheduled/documente d in this visit High Risk Medications Disciplines: Skilled Services 08/20/2022 Active 1 goal linked to scheduled/document ed intervention 4 goal interventions scheduled/documente d in this visit Discharge Disciplines: Skilled Services 08/20/2022 Active 1 goal linked to scheduled/document ed intervention 1 goal intervention scheduled/documente d in this visit SN COPD Disciplines: SN 09/22/2022 Active 1 goal linked to scheduled/document ed intervention 1 goal intervention scheduled/documente d in this visit Recertification Disciplines: Skilled Services 12/17/2022 Active 1 goal linked to scheduled/document ed intervention 1 goal intervention scheduled/documente d in this visit SN Integumentary/W ounds Disciplines: SN 02/04/2023 Active 1 goal linked to scheduled/document ed intervention 1 goal intervention scheduled/documente d in this visit Recertification Disciplines: Skilled Services 02/13/2023 Active 1 goal linked to scheduled/document ed intervention 1 goal intervention scheduled/documente d in this visit Goals Goal Associated Problem Outcome Goal Met? Visit Notes Patient/caregiver will demonstrate ability to obtain, store, identify and administer ordered medications, keep accurate medication list in home, and adhere to medication schedule Description: Patient/caregiver will demonstrate ability to obtain, store, identify and administer ordered medications, keep accurate medication list in home, and adhere to medication schedule by 04-16-23. Medication Education No Patient/caregiver will be able to identify and report symptoms of sepsis Description: Patient/caregiver will be able to identify signs/symptoms of sepsis infection and will verbalize actions to take if suspected by 04-16-23. Sepsis No Patient to maintain parameters within physician-specified ranges throughout certification period Physician Specific Parameters No Manage Risk for falls Description: Patient/caregiver will verbalize knowledge of individualized fall prevention strategies by 04-16-23. Risk for Falls No Manage diabetic foot care Description: Patient/caregiver will demonstrate basic understanding of and compliance with diabetic self-care management as evidenced by verbalizing purpose of daily foot care and assessment by 04-16-23. Diabetic Foot Care No Manage oxygen Description: Patient/caregiver will use oxygen safely and effectively in home by verbalizing and demonstrating oxygen safety by 04-16-23. Oxygen No Patient/caregiver will teach back high risk medication side effect and precaution education High Risk Medications No Manage discharge planning Description: Patient/caregiver will verbalize understanding of ongoing discharge plan provided related to disease management, arrangements for outpatient and/or community services, obtaining medications, supplies, and DME, as needed throughout certification period. Discharge No Improved management of COPD Description: Improve COPD management as evidenced by decreased reports of dyspnea, medication compliance, and patient able to teach back strategies to manage condition. Goal to be achieved by 04-16-23 SN COPD No Ongoing review of POC and need for skilled services Recertification No Patient/Caregiver will have improved healing and be free of signs and symptoms of complications Description: Patient/caregiver will verbalize management strategies to promote wound healing & prevent complications as evidenced by improved healing & no complications. SN Integumentary/Wounds No Ongoing review of POC and need for skilled services Recertification No Interventions Intervention Associated Problem/Goal Status Variance Visit Notes Medication Education Description: Evaluate/instruct patient/caregiver on obtaining, storing, identifying and administering ordered medications as well as keeping accurate medication list in the home and adhereing to medication schedule Problem:Medication Education Goal:Patient/caregiv er will demonstrate ability to obtain, store, identify and administer ordered medications, keep accurate medication list in home, and adhere to medication schedule Completed Patient instructed on importance of keeping accurate medication list in home, adhering to medication schedule and proper storage of medications. Risk of Sepsis Description: Patient is at risk for sepsis. Monitor closely for s/s of sepsis. Problem:Sepsis Goal:Patient/caregiv er will be able to identify and report symptoms of sepsis Completed SPO2 Description: Notify if pulse ox is <92% at rest. Problem:Physician Specific Parameters Goal:Patient to maintain parameters within physician-specified ranges throughout certification period Completed Instruct on individual fall risk factors and strategies to prevent falls and injuries caused by falls. Problem:Risk for Falls Goal:Manage Risk for falls Completed SN: Patient instructed on Eliminating Environmental Hazards: Keep pathways clear, Keep pets out of pathways, Keep rooms and walkways well lit, Wear supportive shoes or non-skid socks and Keep frequently used items within reach Monitor lower extremities for skin lesions and educate on proper foot care Problem:Diabetic Foot Care Goal:Manage diabetic foot care Completed patient instructed on diabetic foot care including daily skin inspection, wearing proper footwear/avoiding going barefoot, wash/dry feet thoroughly, applying moisturizer, avoiding between toes and toenail care. Instruct on fire safety and safe and effective use of oxygen in the home Problem:Oxygen Goal:Manage oxygen Completed patient and caregiver instructed on: findings of safety risk assessment, causes of fires, firerisks for neighboring residences and buildings, precautions that can prevent fire-related injuries, oxygen safety as outlined in Home Care Patient Handbook and recommendations for specific safety risks identified in the home: maintenance of working smoke detectors and changing batteries, establishment of fire escape plan, telephone accessibility and implementation of no-smoking policy in home, including e-cigarettes and posting of No-Smoking signs on entrance doors patient and caregiver demonstrate compliance with safety recommendations. Opioids- educated on high risk medication Problem:High Risk Medications Goal:Patient/caregiv er will teach back high risk medication side effect and precaution education Completed patient educated on taking medication(s) as prescribed by provider. Do not stop medication or alter doses without speaking with your provider. Discuss medication effectiveness or side effect concerns with your provider and home care team. Only take opioids as prescribed, do not share your medications, and take proper precautions in storing and properly disposing of opioids once no longer needed. Possible side effects of opioid medication including sedation, decreased rate of breathing, and constipation. Report over sedation to prescribing provider and practice deep breathing techniques every hour while awake. Prevent constipation by increasing water and fiber intake, increasing activity as tolerated, and use stool softener(s) as prescribed. Hypoglycemic (including insulin)- educated on high risk medication Problem:High Risk Medications Goal:Patient/caregiv er will teach back high risk medication side effect and precaution education Completed patient educated on taking medication(s) as prescribed by provider. Do not stop medication or skip/alter doses without speaking with your provider. Discuss medication effectiveness or side effect concerns with your provider and home care team. Check blood sugars and keep log as ordered by provider. Monitor for side effects of hypoglycemia such as increased weakness or shaking, moist skin, sweating, fast heartbeat, dizziness, sudden hunger, confusion, pale skin, numbness in mouth or tongue, irritability, nervousness, unsteadiness, nightmares, bad dreams, and restless sleep. Checking your blood sugar routinely and eating a consistent diabetic diet can help regulate blood sugars and reduce side effects. Antiplatelet- educated on high risk medication Problem:High Risk Medications Goal:Patient/caregiv er will teach back high risk medication side effect and precaution education Completed patient educated on taking medication(s) as prescribed by provider. Do not stop medication or alter doses without speaking with your provider. Discuss medication effectiveness or side effect concerns with your provider and home care team. Discuss all medications you are taking, even uuyq-lmp-gyizuir medicines, with your provider and pharmacist since many drugs can interact with antiplatelet medications. If you forget to take a dose, DO NOT take a double dose. Take the missed dose as soon as possible on the same day. DO NOT take a double dose the next day to make up for the missed dose. Watch for signs of abnormal or excessive bleeding and bruising (refer to Bleeding Precautions education). Call your health care provider right away if you suspect something is wrong. Antibiotic- educated on high risk medication Problem:High Risk Medications Goal:Patient/caregiv er will teach back high risk medication side effect and precaution education Completed patient educated on taking medication(s) as prescribed by provider. Do not stop medication or alter doses without speaking with your provider. Discuss medication effectiveness or side effect concerns with your provider and home care team. Take the full dispensed amount even if you start feeling better, as bacteria can become resistant to antibiotic treatment if you do not finish your prescription. Common side effects are upset stomach and diarrhea. Take your antibiotics with food unless otherwise indicated to help with indigestion. Taking an kzcv-aoo-znrmens probiotic or eating yogurt with live and active cultures three times a day can help prevent antibiotic-associated diarrhea. Call your provider immediately if you develop rashes or hives as this could be a delayed allergic reaction. Seek emergency treatment if you develop severe allergic reaction symptoms such as mouth or tongue swelling. Instruct on ongoing discharge plan Problem:Discharge Goal:Manage discharge planning Completed Ongoing Discharge plan: Discharge plan discussed with patient including frequency and duration for home SN and plan for transition to: caregiver assistance. Maintenance COPD Description: Reinforce Acute and Sub-acute management education. Instruct on review zone sheet, nutrition in relation to COPD management, energy conservation, pacing activities, independence in ADLs vs what caregiver should be helping with, home exercise, additional COPD resources available like chronic care clinics as found in the COPD binder. Problem:SN COPD Goal:Improved management of COPD Completed Reinforced Acute and Sub-acute management education. patient reinforced on zone sheet, nutrition in relation to COPD management and energy conservation pacing activities and Romeo in ADLs vs what caregiver should be helping with as found in the COPD binder. Continued need for Home Care Services Description: POC and certification renewed due to continuing [facility] needs. Problem:Recertificat ion Goal:Ongoing review of POC and need for skilled services Completed Wound Care: Perform wound care (1) Description: Wound Care Order: Wound location: left inner thigh Wound type (etiology): Surgical Wound Order: Cleanse with Chlorahexadine or mild soap and water, rinse pat dry. apply lidocaine, pack with aquacell silver ag, cover with dry dressing Frequency: change every other day and as needed Wound care to be completed by patient except for scheduled SN wound care visits. Measure wound/incision at least weekly. Okay to substitute comparable products from home care formulary. Problem:SN Integumentary/Wounds Goal:Patient/Caregiv er will have improved healing and be free of signs and symptoms of complications Completed Completed by SN. Patient did tolerate well. Continued need for Home Care Services Description: POC and certification renewed due to continuing [facility] needs. Problem:Recertificat ion Goal:Ongoing review of POC and need for skilled services Completed documented in this encounter [facility]'s home Plan of care note* Visit Details Visit Type -SN PRN VISIT Discipline -Half-Way Problems Problem Description Start Date Status Goals Interve ntions Medication Education Disciplines: Skilled Services 08/20/2022 Active 1 goal linked to scheduled/document ed intervention 1 goal intervention scheduled/documente d in this visit Sepsis Disciplines: Skilled Services 08/20/2022 Active 1 goal linked to scheduled/document ed intervention 1 goal intervention scheduled/documente d in this visit Physician Specific Parameters Disciplines: Skilled Services 08/20/2022 Active 1 goal linked to scheduled/document ed intervention 1 goal intervention scheduled/documente d in this visit Pain Disciplines: Skilled Services 08/20/2022 Active 1 goal linked to scheduled/document ed intervention 1 goal intervention scheduled/documente d in this visit Diabetic Foot Care Disciplines: Skilled Services 08/20/2022 Active 1 goal linked to scheduled/document ed intervention 1 goal intervention scheduled/documente d in this visit Oxygen Disciplines: Skilled Services 08/20/2022 Active 1 goal linked to scheduled/document ed intervention 1 goal intervention scheduled/documente d in this visit High Risk Medications Disciplines: Skilled Services 08/20/2022 Active 1 goal linked to scheduled/document ed intervention 4 goal interventions scheduled/documente d in this visit Discharge Disciplines: Skilled Services 08/20/2022 Active 1 goal linked to scheduled/document ed intervention 1 goal intervention scheduled/documente d in this visit SN COPD Disciplines: SN 09/22/2022 Active 1 goal linked to scheduled/document ed intervention 1 goal intervention scheduled/documente d in this visit Recertification Disciplines: Skilled Services 12/17/2022 Active 1 goal linked to scheduled/document ed intervention 1 goal intervention scheduled/documente d in this visit Recertification Disciplines: Skilled Services 02/13/2023 Active 1 goal linked to scheduled/document ed intervention 1 goal intervention scheduled/documente d in this visit SN Labwork Disciplines: SN 03/09/2023 Active 1 goal linked to scheduled/document ed intervention 1 goal intervention scheduled/documente d in this visit Goals Goal Associated Problem Outcome Goal Met? Visit Notes Patient/caregiver will demonstrate ability to obtain, store, identify and administer ordered medications, keep accurate medication list in home, and adhere to medication schedule Description: Patient/caregiver will demonstrate ability to obtain, store, identify and administer ordered medications, keep accurate medication list in home, and adhere to medication schedule by 04-16-23. Medication Education No Patient/caregiver will be able to identify and report symptoms of sepsis Description: Patient/caregiver will be able to identify signs/symptoms of sepsis infection and will verbalize actions to take if suspected by 04-16-23. Sepsis No Patient to maintain parameters within physician-specified ranges throughout certification period Physician Specific Parameters No Manage Pain Description: Patient/caregiver will verbalize knowledge and understanding of appropriate techniques to control pain, including pain medication and non-pharmacological techniques. Patient will verbalize or demonstrate an acceptable level of pain as evidenced by a pain score of 0-3/10 and improvement in ability to perform activities of daily living to be achieved by 04-16-23. Pain No Manage diabetic foot care Description: Patient/caregiver will demonstrate basic understanding of and compliance with diabetic self-care management as evidenced by verbalizing purpose of daily foot care and assessment by 04-16-23. Diabetic Foot Care No Manage oxygen Description: Patient/caregiver will use oxygen safely and effectively in home by verbalizing and demonstrating oxygen safety by 04-16-23. Oxygen No Patient/caregiver will teach back high risk medication side effect and precaution education High Risk Medications No Manage discharge planning Description: Patient/caregiver will verbalize understanding of ongoing discharge plan provided related to disease management, arrangements for outpatient and/or community services, obtaining medications, supplies, and DME, as needed throughout certification period. Discharge No Improved management of COPD Description: Improve COPD management as evidenced by decreased reports of dyspnea, medication compliance, and patient able to teach back strategies to manage condition. Goal to be achieved by 04-16-23 SN COPD No Ongoing review of POC and need for skilled services Recertification No Ongoing review of POC and need for skilled services Recertification No SN to obtain lab specimen without difficulty when ordered throughout certification period SN Labwork No Interventions Intervention Associated Problem/Goal Status Variance Visit Notes Medication Education Description: Evaluate/instruct patient/caregiver on obtaining, storing, identifying and administering ordered medications as well as keeping accurate medication list in the home and adhereing to medication schedule Problem:Medication Education Goal:Patient/caregive r will demonstrate ability to obtain, store, identify and administer ordered medications, keep accurate medication list in home, and adhere to medication schedule Completed Patient instructed on importance of keeping accurate medication list in home, adhering to medication schedule and proper storage of medications. Risk of Sepsis Description: Patient is at risk for sepsis. Monitor closely for s/s of sepsis. Problem:Sepsis Goal:Patient/caregive r will be able to identify and report symptoms of sepsis Completed SPO2 Description: Notify if pulse ox is <92% at rest. Problem:Physician Specific Parameters Goal:Patient to maintain parameters within physician-specified ranges throughout certification period Completed Instruct on pain and instruct on strategies to control pain Problem:Pain Goal:Manage Pain Completed patient instructed on techniques to control pain including Pharmacological measures and Non-Pharmacological measures; rest, positioning/elevation, mobility/therapeutic exercise and distraction. Monitor lower extremities for skin lesions and educate on proper foot care Problem:Diabetic Foot Care Goal:Manage diabetic foot care Completed patient instructed on diabetic foot care including daily skin inspection, wearing proper footwear/avoiding going barefoot, wash/dry feet thoroughly, applying moisturizer, avoiding between toes and toenail care. Instruct on fire safety and safe and effective use of oxygen in the home Problem:Oxygen Goal:Manage oxygen Completed patient instructed on: findings of safety risk assessment, causes of fires, firerisks for neighboring residences and buildings, precautions that can prevent fire-related injuries and oxygen safety as outlined in Home Care Patient Handbook patient demonstrate compliance with safety recommendations. Opioids- educated on high risk medication Problem:High Risk Medications Goal:Patient/caregive r will teach back high risk medication side effect and precaution education Completed patient educated on taking medication(s) as prescribed by provider. Do not stop medication or alter doses without speaking with your provider. Discuss medication effectiveness or side effect concerns with your provider and home care team. Only take opioids as prescribed, do not share your medications, and take proper precautions in storing and properly disposing of opioids once no longer needed. Possible side effects of opioid medication including sedation, decreased rate of breathing, and constipation. Report over sedation to prescribing provider and practice deep breathing techniques every hour while awake. Prevent constipation by increasing water and fiber intake, increasing activity as tolerated, and use stool softener(s) as prescribed. Hypoglycemic (including insulin)- educated on high risk medication Problem:High Risk Medications Goal:Patient/caregive r will teach back high risk medication side effect and precaution education Completed patient educated on taking medication(s) as prescribed by provider. Do not stop medication or skip/alter doses without speaking with your provider. Discuss medication effectiveness or side effect concerns with your provider and home care team. Check blood sugars and keep log as ordered by provider. Monitor for side effects of hypoglycemia such as increased weakness or shaking, moist skin, sweating, fast heartbeat, dizziness, sudden hunger, confusion, pale skin, numbness in mouth or tongue, irritability, nervousness, unsteadiness, nightmares, bad dreams, and restless sleep. Checking your blood sugar routinely and eating a consistent diabetic diet can help regulate blood sugars and reduce side effects. Antiplatelet- educated on high risk medication Problem:High Risk Medications Goal:Patient/caregive r will teach back high risk medication side effect and precaution education Completed patient educated on taking medication(s) as prescribed by provider. Do not stop medication or alter doses without speaking with your provider. Discuss medication effectiveness or side effect concerns with your provider and home care team. Discuss all medications you are taking, even usll-klf-hfebhsk medicines, with your provider and pharmacist since many drugs can interact with antiplatelet medications. If you forget to take a dose, DO NOT take a double dose. Take the missed dose as soon as possible on the same day. DO NOT take a double dose the next day to make up for the missed dose. Watch for signs of abnormal or excessive bleeding and bruising (refer to Bleeding Precautions education). Call your health care provider right away if you suspect something is wrong. Antibiotic- educated on high risk medication Problem:High Risk Medications Goal:Patient/caregive r will teach back high risk medication side effect and precaution education Completed patient educated on taking medication(s) as prescribed by provider. Do not stop medication or alter doses without speaking with your provider. Discuss medication effectiveness or side effect concerns with your provider and home care team. Take the full dispensed amount even if you start feeling better, as bacteria can become resistant to antibiotic treatment if you do not finish your prescription. Common side effects are upset stomach and diarrhea. Take your antibiotics with food unless otherwise indicated to help with indigestion. Taking an xnte-gct-virtpsd probiotic or eating yogurt with live and active cultures three times a day can help prevent antibiotic-associated diarrhea. Call your provider immediately if you develop rashes or hives as this could be a delayed allergic reaction. Seek emergency treatment if you develop severe allergic reaction symptoms such as mouth or tongue swelling. Instruct on ongoing discharge plan Problem:Discharge Goal:Manage discharge planning Completed Ongoing Discharge plan: Discharge plan discussed with patient including frequency and duration for home SN and plan for transition to: caregiver assistance. Maintenance COPD Description: Reinforce Acute and Sub-acute management education. Instruct on review zone sheet, nutrition in relation to COPD management, energy conservation, pacing activities, independence in ADLs vs what caregiver should be helping with, home exercise, additional COPD resources available like chronic care clinics as found in the COPD binder. Problem:SN COPD Goal:Improved management of COPD Completed Reinforced Acute and Sub-acute management education. patient reinforced on zone sheet, nutrition in relation to COPD management and energy conservation pacing activities and Romeo in ADLs vs what caregiver should be helping with as found in the COPD binder. Continued need for Home Care Services Description: POC and certification renewed due to continuing [facility] needs. Problem:Recertificati on Goal:Ongoing review of POC and need for skilled services Completed Continued need for Home Care Services Description: POC and certification renewed due to continuing [facility] needs. Problem:Recertificati on Goal:Ongoing review of POC and need for skilled services Completed SN to obtain blood specimen (1) Description: Draw blood via venipuncture for CMP with a frequency of once on Thursday or Thursday. Results to Dr Arellano. Phone/Fax number. [phone] Dx code(s):C581.81, E11.0 Problem:SN Labwork Goal:SN to obtain lab specimen without difficulty when ordered throughout certification period Completed documented in this encounter [facility]'s home Plan of care note* Visit Details Visit Type -SN ROUTINE Discipline -Half-Way Problems Problem Description Start Date Status Goals Interve ntions Medication Education Disciplines: Skilled Services 08/20/2022 Active 1 goal linked to scheduled/docume nted intervention 1 goal intervention scheduled/documen pawan in this visit Sepsis Disciplines: Skilled Services 08/20/2022 Active 1 goal linked to scheduled/docume nted intervention 1 goal intervention scheduled/documen pawan in this visit Physician Specific Parameters Disciplines: Skilled Services 08/20/2022 Active 1 goal linked to scheduled/docume nted intervention 1 goal intervention scheduled/documen pawan in this visit Risk for Falls Disciplines: Skilled Services 08/20/2022 Active 1 goal linked to scheduled/docume nted intervention 1 goal intervention scheduled/documen pawan in this visit Pain Disciplines: Skilled Services 08/20/2022 Active 1 goal linked to scheduled/docume nted intervention 1 goal intervention scheduled/documen pawan in this visit Diabetic Foot Care Disciplines: Skilled Services 08/20/2022 Active 1 goal linked to scheduled/docume nted intervention 1 goal intervention scheduled/documen pawan in this visit Oxygen Disciplines: Skilled Services 08/20/2022 Active 1 goal linked to scheduled/docume nted intervention 1 goal intervention scheduled/documen pawan in this visit High Risk Medications Disciplines: Skilled Services 08/20/2022 Active 1 goal linked to scheduled/docume nted intervention 4 goal interventions scheduled/documen pawan in this visit Discharge Disciplines: Skilled Services 08/20/2022 Active 1 goal linked to scheduled/docume nted intervention 1 goal intervention scheduled/documen pawan in this visit SN Diabetes Disciplines: SN 08/20/2022 Active 1 goal linked to scheduled/docume nted intervention 1 goal intervention scheduled/documen pawan in this visit SN Cardiovascular Condition Disciplines: SN 08/20/2022 Active 1 goal linked to scheduled/docume nted intervention 1 goal intervention scheduled/documen pawan in this visit SN Learning Assessment Disciplines: SN 08/20/2022 Active 1 goal linked to scheduled/docume nted intervention 1 goal intervention scheduled/documen pawan in this visit SN COPD Disciplines: SN 09/22/2022 Active 1 goal linked to scheduled/docume nted intervention 1 goal intervention scheduled/documen pawan in this visit Recertification Disciplines: Skilled Services 12/17/2022 Active 1 goal linked to scheduled/docume nted intervention 1 goal intervention scheduled/documen pawan in this visit SN Integumentary/Wound s Disciplines: SN 02/04/2023 Active 1 goal linked to scheduled/docume nted intervention 3 goal interventions scheduled/documen pawan in this visit Recertification Disciplines: Skilled Services 02/13/2023 Active 1 goal linked to scheduled/docume nted intervention 1 goal intervention scheduled/documemaximiliano villalta in this visit SN Labwork Disciplines: SN 03/09/2023 Resolved on 03/12/2023 1 goal linked to scheduled/docume nted intervention Goals Goal Associated Problem Outcome Goal Met? Visit Notes Patient/caregiver will demonstrate ability to obtain, store, identify and administer ordered medications, keep accurate medication list in home, and adhere to medication schedule Description: Patient/caregiver will demonstrate ability to obtain, store, identify and administer ordered medications, keep accurate medication list in home, and adhere to medication schedule by 04-16-23. Medication Education No Patient/caregiver will be able to identify and report symptoms of sepsis Description: Patient/caregiver will be able to identify signs/symptoms of sepsis infection and will verbalize actions to take if suspected by 04-16-23. Sepsis No Patient to maintain parameters within physician-specified ranges throughout certification period Physician Specific Parameters No Manage Risk for falls Description: Patient/caregiver will verbalize knowledge of individualized fall prevention strategies by 04-16-23. Risk for Falls No Manage Pain Description: Patient/caregiver will verbalize knowledge and understanding of appropriate techniques to control pain, including pain medication and non-pharmacological techniques. Patient will verbalize or demonstrate an acceptable level of pain as evidenced by a pain score of 0-3/10 and improvement in ability to perform activities of daily living to be achieved by 04-16-23. Pain No Manage diabetic foot care Description: Patient/caregiver will demonstrate basic understanding of and compliance with diabetic self-care management as evidenced by verbalizing purpose of daily foot care and assessment by 04-16-23. Diabetic Foot Care No Manage oxygen Description: Patient/caregiver will use oxygen safely and effectively in home by verbalizing and demonstrating oxygen safety by 04-16-23. Oxygen No Patient/caregiver will teach back high risk medication side effect and precaution education High Risk Medications No Manage discharge planning Description: Patient/caregiver will verbalize understanding of ongoing discharge plan provided related to disease management, arrangements for outpatient and/or community services, obtaining medications, supplies, and DME, as needed throughout certification period. Discharge No Improved management of diabetes Description: Improve diabetic management as evidenced by patient/caregiver able to teach back diabetic management strategies by 04-16-23. SN Diabetes No Improved management of cardiovascular disease Description: Improve patient/caregiver management of cardiac disease as evidenced by patient/caregiver ability to teach back cardiac management strategies by 04-16-23. SN Cardiovascular Condition No Demonstrate understanding of education Description: Patient and/or caregiver will verbalize understanding of educational instruction provided throughout certification period. SN Learning Assessment No Improved management of COPD Description: Improve COPD management as evidenced by decreased reports of dyspnea, medication compliance, and patient able to teach back strategies to manage condition. Goal to be achieved by 04-16-23 SN COPD No Ongoing review of POC and need for skilled services Recertification No Patient/Caregiver will have improved healing and be free of signs and symptoms of complications Description: Patient/caregiver will verbalize management strategies to promote wound healing & prevent complications as evidenced by improved healing & no complications. SN Integumentary/Wounds No Ongoing review of POC and need for skilled services Recertification No SN to obtain lab specimen without difficulty when ordered throughout certification period SN Labwork Completed Yes Interventions Intervention Associated Problem/Goal Status Variance Visit Notes Medication Education Description: Evaluate/instruct patient/caregiver on obtaining, storing, identifying and administering ordered medications as well as keeping accurate medication list in the home and adhereing to medication schedule Problem:Medication Education Goal:Patient/caregive r will demonstrate ability to obtain, store, identify and administer ordered medications, keep accurate medication list in home, and adhere to medication schedule Completed Patient instructed on importance of keeping accurate medication list in home, adhering to medication schedule and proper storage of medications. Risk of Sepsis Description: Patient is at risk for sepsis. Monitor closely for s/s of sepsis. Problem:Sepsis Goal:Patient/caregive r will be able to identify and report symptoms of sepsis Completed SPO2 Description: Notify if pulse ox is <92% at rest. Problem:Physician Specific Parameters Goal:Patient to maintain parameters within physician-specified ranges throughout certification period Completed Instruct on individual fall risk factors and strategies to prevent falls and injuries caused by falls. Problem:Risk for Falls Goal:Manage Risk for falls Completed SN: Patient instructed on Eliminating Environmental Hazards: Keep pathways clear, Keep pets out of pathways, Keep rooms and walkways well lit, Wear supportive shoes or non-skid socks and Keep frequently used items within reach Instruct on pain and instruct on strategies to control pain Problem:Pain Goal:Manage Pain Completed patient instructed on techniques to control pain including Pharmacological measures and Non-Pharmacological measures; rest, positioning/elevation, mobility/therapeutic exercise, distraction and breathing/relaxation. Monitor lower extremities for skin lesions and educate on proper foot care Problem:Diabetic Foot Care Goal:Manage diabetic foot care Completed patient instructed on diabetic foot care including daily skin inspection, wearing proper footwear/avoiding going barefoot, wash/dry feet thoroughly, applying moisturizer, avoiding between toes and toenail care. Instruct on fire safety and safe and effective use of oxygen in the home Problem:Oxygen Goal:Manage oxygen Completed patient instructed on: findings of safety risk assessment, causes of fires, firerisks for neighboring residences and buildings, precautions that can prevent fire-related injuries and oxygen safety as outlined in Home Care Patient Handbook patient demonstrate compliance with safety recommendations. Opioids- educated on high risk medication Problem:High Risk Medications Goal:Patient/caregive r will teach back high risk medication side effect and precaution education Completed patient educated on taking medication(s) as prescribed by provider. Do not stop medication or alter doses without speaking with your provider. Discuss medication effectiveness or side effect concerns with your provider and home care team. Only take opioids as prescribed, do not share your medications, and take proper precautions in storing and properly disposing of opioids once no longer needed. Possible side effects of opioid medication including sedation, decreased rate of breathing, and constipation. Report over sedation to prescribing provider and practice deep breathing techniques every hour while awake. Prevent constipation by increasing water and fiber intake, increasing activity as tolerated, and use stool softener(s) as prescribed. Hypoglycemic (including insulin)- educated on high risk medication Problem:High Risk Medications Goal:Patient/caregive r will teach back high risk medication side effect and precaution education Completed patient educated on taking medication(s) as prescribed by provider. Do not stop medication or skip/alter doses without speaking with your provider. Discuss medication effectiveness or side effect concerns with your provider and home care team. Check blood sugars and keep log as ordered by provider. Monitor for side effects of hypoglycemia such as increased weakness or shaking, moist skin, sweating, fast heartbeat, dizziness, sudden hunger, confusion, pale skin, numbness in mouth or tongue, irritability, nervousness, unsteadiness, nightmares, bad dreams, and restless sleep. Checking your blood sugar routinely and eating a consistent diabetic diet can help regulate blood sugars and reduce side effects. Antiplatelet- educated on high risk medication Problem:High Risk Medications Goal:Patient/caregive r will teach back high risk medication side effect and precaution education Completed patient educated on taking medication(s) as prescribed by provider. Do not stop medication or alter doses without speaking with your provider. Discuss medication effectiveness or side effect concerns with your provider and home care team. Discuss all medications you are taking, even [id number] medicines, with your provider and pharmacist since many drugs can interact with antiplatelet medications. If you forget to take a dose, DO NOT take a double dose. Take the missed dose as soon as possible on the same day. DO NOT take a double dose the next day to make up for the missed dose. Watch for signs of abnormal or excessive bleeding and bruising (refer to Bleeding Precautions education). Call your health care provider right away if you suspect something is wrong. Antibiotic- educated on high risk medication Problem:High Risk Medications Goal:Patient/caregive r will teach back high risk medication side effect and precaution education Completed patient educated on taking medication(s) as prescribed by provider. Do not stop medication or alter doses without speaking with your provider. Discuss medication effectiveness or side effect concerns with your provider and home care team. Take the full dispensed amount even if you start feeling better, as bacteria can become resistant to antibiotic treatment if you do not finish your prescription. Common side effects are upset stomach and diarrhea. Take your antibiotics with food unless otherwise indicated to help with indigestion. Taking an gmoa-rid-gjbirqa probiotic or eating yogurt with live and active cultures three times a day can help prevent antibiotic-associated diarrhea. Call your provider immediately if you develop rashes or hives as this could be a delayed allergic reaction. Seek emergency treatment if you develop severe allergic reaction symptoms such as mouth or tongue swelling. Instruct on ongoing discharge plan Problem:Discharge Goal:Manage discharge planning Completed Ongoing Discharge plan: Discharge plan discussed with patient including frequency and duration for home SN and plan for transition to: caregiver assistance. Instruct on diabetes disease process and management of chronic condition Description: Patient has needs for education of diabetes. Problem:SN Diabetes Goal:Improved management of diabetes Completed patient assessed and reinforced on diabetes disease process, diet education, how to carb count and recogonizing s/s of hypoglycemia and hyperglycemia as found in the diabetes self-care booklets. Instruct on cardiovascular disease process and management of condition Description: Patient has following cardiac diagnosis(es): CAD. Problem:SN Cardiovascular Condition Goal:Improved management of cardiovascular disease Completed patient instructed on cardiac disease process, self monitoring & symptom reporting and Cardiac Diet. Instruct and educate on knowledge deficits Problem:SN Learning Assessment Goal:Demonstrate understanding of education Completed patient verbalize and/or demonstrate understanding of nursing education completed today. Education methods include: verbal cues. Further education required to improve knowledge and compliance with cardiac disease management, diabetic care management, fall prevention/home safety strategies, incision/wound care management, oxygen safety and pulmonary disease management. Maintenance COPD Description: Reinforce Acute and Sub-acute management education. Instruct on review zone sheet, nutrition in relation to COPD management, energy conservation, pacing activities, independence in ADLs vs what caregiver should be helping with, home exercise, additional COPD resources available like chronic care clinics as found in the COPD binder. Problem:SN COPD Goal:Improved management of COPD Completed Reinforced Acute and Sub-acute management education. patient reinforced on zone sheet, nutrition in relation to COPD management and energy conservation pacing activities and Romeo in ADLs vs what caregiver should be helping with as found in the COPD binder. Continued need for Home Care Services Description: POC and certification renewed due to continuing [facility] needs. Problem:Recertificati on Goal:Ongoing review of POC and need for skilled services Completed Wound Care: Perform wound care (1) Description: Wound Care Order: Wound location: left inner thigh Wound type (etiology): Surgical Wound Order: Cleanse with Chlorahexadine or mild soap and water, rinse pat dry. apply lidocaine, pack with aquacell silver ag, cover with dry dressing Frequency: change every other day and as needed Wound care to be completed by patient except for scheduled SN wound care visits. Measure wound/incision at least weekly. Okay to substitute comparable products from home care formulary. Problem:SN Integumentary/Wounds Goal:Patient/Caregive r will have improved healing and be free of signs and symptoms of complications Completed Completed by patient/caregiver completed independently . Patient did tolerate well. Instruct patient/caregiver healing process and management measures to promote healing and avoid complications Problem:SN Integumentary/Wounds Goal:Patient/Caregive r will have improved healing and be free of signs and symptoms of complications Completed patient instructed on the following: healing process, signs and symptoms of infection, importance of good nutrition, importance of managing blood sugars and when to report symptoms. Instruct Patient/Caregiver on wound/incision care procedure as ordered by physician Problem:SN Integumentary/Wounds Goal:Patient/Caregive r will have improved healing and be free of signs and symptoms of complications Completed patient instructed on wound care as ordered by Physician. Continued need for Home Care Services Description: POC and certification renewed due to continuing [facility] needs. Problem:Recertificati on Goal:Ongoing review of POC and need for skilled services Completed documented in this encounter [facility]'s home Plan of care note* Visit Details Visit Type -SN ROUTINE Discipline -Half-Way Problems Problem Description Start Date Status Goals Interve ntions Medication Education Disciplines: Skilled Services 08/20/2022 Active 1 goal linked to scheduled/documen pawan intervention 1 goal intervention scheduled/document ed in this visit Sepsis Disciplines: Skilled Services 08/20/2022 Active 1 goal linked to scheduled/documen pawan intervention 1 goal intervention scheduled/document ed in this visit Physician Specific Parameters Disciplines: Skilled Services 08/20/2022 Active 1 goal linked to scheduled/documen pawan intervention 1 goal intervention scheduled/document ed in this visit Risk for Falls Disciplines: Skilled Services 08/20/2022 Active 1 goal linked to scheduled/documen pawan intervention 1 goal intervention scheduled/document ed in this visit Diabetic Foot Care Disciplines: Skilled Services 08/20/2022 Active 1 goal linked to scheduled/documen pawan intervention 1 goal intervention scheduled/document ed in this visit Oxygen Disciplines: Skilled Services 08/20/2022 Active 1 goal linked to scheduled/documen pawan intervention 1 goal intervention scheduled/document ed in this visit High Risk Medications Disciplines: Skilled Services 08/20/2022 Active 1 goal linked to scheduled/documen pawan intervention 4 goal interventions scheduled/document ed in this visit Discharge Disciplines: Skilled Services 08/20/2022 Active 1 goal linked to scheduled/documen pawan intervention 1 goal intervention scheduled/document ed in this visit SN Edema Disciplines: SN 08/20/2022 Active 1 goal linked to scheduled/documen pawan intervention 1 goal intervention scheduled/document ed in this visit SN Diabetes Disciplines: SN 08/20/2022 Active 1 goal linked to scheduled/documen pawan intervention 1 goal intervention scheduled/document ed in this visit SN Cardiovascular Condition Disciplines: SN 08/20/2022 Active 1 goal linked to scheduled/documen pawan intervention 1 goal intervention scheduled/document ed in this visit SN Learning Assessment Disciplines: SN 08/20/2022 Active 1 goal linked to scheduled/documen pawan intervention 1 goal intervention scheduled/document ed in this visit SN COPD Disciplines: SN 09/22/2022 Active 1 goal linked to scheduled/documen pawan intervention 3 goal interventions scheduled/document ed in this visit Recertification Disciplines: Skilled Services 12/17/2022 Active 1 goal linked to scheduled/documen pawan intervention 1 goal intervention scheduled/document ed in this visit SN Integumentary/Wound s Disciplines: SN 02/04/2023 Active 1 goal linked to scheduled/documen pawan intervention 5 goal interventions scheduled/document ed in this visit Recertification Disciplines: Skilled Services 02/13/2023 Active 1 goal linked to scheduled/documen pawan intervention 1 goal intervention scheduled/document ed in this visit Goals Goal Associated Problem Outcome Goal Met? Visit Notes Patient/caregiver will demonstrate ability to obtain, store, identify and administer ordered medications, keep accurate medication list in home, and adhere to medication schedule Description: Patient/caregiver will demonstrate ability to obtain, store, identify and administer ordered medications, keep accurate medication list in home, and adhere to medication schedule by 04-16-23. Medication Education No Patient/caregiver will be able to identify and report symptoms of sepsis Description: Patient/caregiver will be able to identify signs/symptoms of sepsis infection and will verbalize actions to take if suspected by 04-16-23. Sepsis No Patient to maintain parameters within physician-specified ranges throughout certification period Physician Specific Parameters No Manage Risk for falls Description: Patient/caregiver will verbalize knowledge of individualized fall prevention strategies by 04-16-23. Risk for Falls No Manage diabetic foot care Description: Patient/caregiver will demonstrate basic understanding of and compliance with diabetic self-care management as evidenced by verbalizing purpose of daily foot care and assessment by 04-16-23. Diabetic Foot Care No Manage oxygen Description: Patient/caregiver will use oxygen safely and effectively in home by verbalizing and demonstrating oxygen safety by 04-16-23. Oxygen No Patient/caregiver will teach back high risk medication side effect and precaution education High Risk Medications No Manage discharge planning Description: Patient/caregiver will verbalize understanding of ongoing discharge plan provided related to disease management, arrangements for outpatient and/or community services, obtaining medications, supplies, and DME, as needed throughout certification period. Discharge No Patient will have improved edema management Description: Patient/caregiver will demonstrate an understanding of edema management strategies as evidenced by resolution or stabilization of edema by 04-16-23. SN Edema No Improved management of diabetes Description: Improve diabetic management as evidenced by patient/caregiver able to teach back diabetic management strategies by 04-16-23. SN Diabetes No Improved management of cardiovascular disease Description: Improve patient/caregiver management of cardiac disease as evidenced by patient/caregiver ability to teach back cardiac management strategies by 04-16-23. SN Cardiovascular Condition No Demonstrate understanding of education Description: Patient and/or caregiver will verbalize understanding of educational instruction provided throughout certification period. SN Learning Assessment No Improved management of COPD Description: Improve COPD management as evidenced by decreased reports of dyspnea, medication compliance, and patient able to teach back strategies to manage condition. Goal to be achieved by 04-16-23 SN COPD No Ongoing review of POC and need for skilled services Recertification No Patient/Caregiver will have improved healing and be free of signs and symptoms of complications Description: Patient/caregiver will verbalize management strategies to promote wound healing & prevent complications as evidenced by improved healing & no complications. SN Integumentary/Wounds No Ongoing review of POC and need for skilled services Recertification No Interventions Intervention Associated Problem/Goal Status Variance Visit Notes Medication Education Description: Evaluate/instruct patient/caregiver on obtaining, storing, identifying and administering ordered medications as well as keeping accurate medication list in the home and adhereing to medication schedule Problem:Medication Education Goal:Patient/caregive r will demonstrate ability to obtain, store, identify and administer ordered medications, keep accurate medication list in home, and adhere to medication schedule Completed Patient instructed on importance of keeping accurate medication list in home, adhering to medication schedule and proper storage of medications. Risk of Sepsis Description: Patient is at risk for sepsis. Monitor closely for s/s of sepsis. Problem:Sepsis Goal:Patient/caregive r will be able to identify and report symptoms of sepsis Completed SPO2 Description: Notify if pulse ox is <92% at rest. Problem:Physician Specific Parameters Goal:Patient to maintain parameters within physician-specified ranges throughout certification period Completed Instruct on individual fall risk factors and strategies to prevent falls and injuries caused by falls. Problem:Risk for Falls Goal:Manage Risk for falls Completed SN: Patient instructed on Eliminating Environmental Hazards: Keep pathways clear, Keep pets out of pathways, Keep rooms and walkways well lit, Wear supportive shoes or non-skid socks and Keep frequently used items within reach Monitor lower extremities for skin lesions and educate on proper foot care Problem:Diabetic Foot Care Goal:Manage diabetic foot care Completed patient instructed on diabetic foot care including daily skin inspection, wearing proper footwear/avoiding going barefoot, wash/dry feet thoroughly, applying moisturizer, avoiding between toes and toenail care. Instruct on fire safety and safe and effective use of oxygen in the home Problem:Oxygen Goal:Manage oxygen Completed patient instructed on: findings of safety risk assessment, causes of fires, firerisks for neighboring residences and buildings, precautions that can prevent fire-related injuries, oxygen safety as outlined in Home Care Patient Handbook and recommendations for specific safety risks identified in the home: maintenance of working smoke detectors and changing batteries, establishment of fire escape plan, telephone accessibility and implementation of no-smoking policy in home, including e-cigarettes and posting of No-Smoking signs on entrance doors patient demonstrate compliance with safety recommendations. Opioids- educated on high risk medication Problem:High Risk Medications Goal:Patient/caregive r will teach back high risk medication side effect and precaution education Completed patient educated on taking medication(s) as prescribed by provider. Do not stop medication or alter doses without speaking with your provider. Discuss medication effectiveness or side effect concerns with your provider and home care team. Only take opioids as prescribed, do not share your medications, and take proper precautions in storing and properly disposing of opioids once no longer needed. Possible side effects of opioid medication including sedation, decreased rate of breathing, and constipation. Report over sedation to prescribing provider and practice deep breathing techniques every hour while awake. Prevent constipation by increasing water and fiber intake, increasing activity as tolerated, and use stool softener(s) as prescribed. Hypoglycemic (including insulin)- educated on high risk medication Problem:High Risk Medications Goal:Patient/caregive r will teach back high risk medication side effect and precaution education Completed patient educated on taking medication(s) as prescribed by provider. Do not stop medication or skip/alter doses without speaking with your provider. Discuss medication effectiveness or side effect concerns with your provider and home care team. Check blood sugars and keep log as ordered by provider. Monitor for side effects of hypoglycemia such as increased weakness or shaking, moist skin, sweating, fast heartbeat, dizziness, sudden hunger, confusion, pale skin, numbness in mouth or tongue, irritability, nervousness, unsteadiness, nightmares, bad dreams, and restless sleep. Checking your blood sugar routinely and eating a consistent diabetic diet can help regulate blood sugars and reduce side effects. Antiplatelet- educated on high risk medication Problem:High Risk Medications Goal:Patient/caregive r will teach back high risk medication side effect and precaution education Completed patient educated on taking medication(s) as prescribed by provider. Do not stop medication or alter doses without speaking with your provider. Discuss medication effectiveness or side effect concerns with your provider and home care team. Discuss all medications you are taking, even fjpj-yhq-muwmnhl medicines, with your provider and pharmacist since many drugs can interact with antiplatelet medications. If you forget to take a dose, DO NOT take a double dose. Take the missed dose as soon as possible on the same day. DO NOT take a double dose the next day to make up for the missed dose. Watch for signs of abnormal or excessive bleeding and bruising (refer to Bleeding Precautions education). Call your health care provider right away if you suspect something is wrong. Antibiotic- educated on high risk medication Problem:High Risk Medications Goal:Patient/caregive r will teach back high risk medication side effect and precaution education Completed patient educated on taking medication(s) as prescribed by provider. Do not stop medication or alter doses without speaking with your provider. Discuss medication effectiveness or side effect concerns with your provider and home care team. Take the full dispensed amount even if you start feeling better, as bacteria can become resistant to antibiotic treatment if you do not finish your prescription. Common side effects are upset stomach and diarrhea. Take your antibiotics with food unless otherwise indicated to help with indigestion. Taking an vimc-[id number]-[id number] probiotic or eating yogurt with live and active cultures three times a day can help prevent antibiotic-associated diarrhea. Call your provider immediately if you develop rashes or hives as this could be a delayed allergic reaction. Seek emergency treatment if you develop severe allergic reaction symptoms such as mouth or tongue swelling. Instruct on ongoing discharge plan Problem:Discharge Goal:Manage discharge planning Completed Ongoing Discharge plan: Discharge plan discussed with patient including frequency and duration for home SN and plan for transition to: caregiver assistance. Assess and instruct on measures to reduce edema Problem:SN Edema Goal:Patient will have improved edema management Completed patient instructed on elevation, compression, diet, medication compliance and benefits of activity. Instruct on diabetes disease process and management of chronic condition Description: Patient has needs for education of diabetes. Problem:SN Diabetes Goal:Improved management of diabetes Completed patient assessed and reinforced on diabetes disease process, diet education, how to carb count and recogonizing s/s of hypoglycemia and hyperglycemia as found in the diabetes self-care booklets. Instruct on cardiovascular disease process and management of condition Description: Patient has following cardiac diagnosis(es): CAD. Problem:SN Cardiovascular Condition Goal:Improved management of cardiovascular disease Completed patient instructed on cardiac disease process, self monitoring & symptom reporting and Cardiac Diet. Instruct and educate on knowledge deficits Problem:SN Learning Assessment Goal:Demonstrate understanding of education Completed patient verbalize and/or demonstrate understanding of nursing education completed today. Education methods include: verbal cues and teach back. Further education required to improve knowledge and compliance with cardiac disease management, depression/anxiety care management, diabetic care management, fall prevention/home safety strategies, integumentary care management, nutrition, oxygen safety and pulmonary disease management. Maintenance COPD Description: Reinforce Acute and Sub-acute management education. Instruct on review zone sheet, nutrition in relation to COPD management, energy conservation, pacing activities, independence in ADLs vs what caregiver should be helping with, home exercise, additional COPD resources available like chronic care clinics as found in the COPD binder. Problem:SN COPD Goal:Improved management of COPD Completed Reinforced Acute and Sub-acute management education. patient reinforced on zone sheet, nutrition in relation to COPD management and energy conservation pacing activities and Romeo in ADLs vs what caregiver should be helping with as found in the COPD binder. Sub-acute COPD Description: Reinforce Acute COPD management education. Instruct on zone sheet, methods to reduce infection risks, anxiety management including relaxation techniques, importance of sleep, stress reduction, and coping strategies for living with COPD as found in the COPD binder. Problem:SN COPD Goal:Improved management of COPD Completed Reinforced Acute COPD management education. patient reinforced on zone sheet, methods to reduce infection risks, anxiety management including: relaxation techniques, importance of sleep and stress reduction and coping strategies for living with COPD as found in the COPD binder. Acute COPD Description: Instruct on defintion of COPD, signs and symptoms of COPD exacerbation, use of zone sheet, use of MDIs, difference between rescue vs maintenance inhalers, use of nebulizer, smoking cessation, breathing management including pursed lip breathing, diaphragmatic breathing, positioning to reduce SOB, controlled coughing, use of incentive spirometer, and use of acapela as found in the COPD binder. Problem:SN COPD Goal:Improved management of COPD Completed patient reinforced on defintion of COPD, signs and symptoms of COPD exacerbation, difference between rescue vs maintenance inhalers, use of nebulizer, smoking cessation and breathing management: pursed lip breathing, diaphragmatic breathing and positioning to reduce SOB as found in the COPD binder. Continued need for Home Care Services Description: POC and certification renewed due to continuing [facility] needs. Problem:Recertificati on Goal:Ongoing review of POC and need for skilled services Completed Wound Care: Peform wound care (3) Description: Wound Care Order: Wound location: scrotum Wound type (etiology): Traumatic Order: Cleanse with Chlorahexadine or mild soap and water, rinse pat dry. apply lidocaine, apply protective barrier cream cover with dry dressing Frequency: daily and as needed for soiled Wound care to be completed by patient except for scheduled SN wound care visits. Measure wound/incision at least weekly. Okay to substitute comparable products from home care formulary. Problem:SN Integumentary/Wounds Goal:Patient/Caregive r will have improved healing and be free of signs and symptoms of complications Completed Completed by SN. Patient did tolerate well. Wound Care: Perform wound care (2) Description: Wound Care Order: Wound location: Left inner thigh Wound type (etiology): Boil Order: Cleanse with Chlorahexadine or mild soap and water, rinse pat dry. apply lidocaine, pack with aquacell silver ag, cover with dry dressing Frequency: every other day and as needed for soiled Wound care to be completed by patient except for scheduled SN wound care visits. Measure wound/incision at least weekly. Okay to substitute comparable products from home care formulary. Problem:SN Integumentary/Wounds Goal:Patient/Caregive r will have improved healing and be free of signs and symptoms of complications Completed Completed by SN. Patient did tolerate well. Wound Care: Perform wound care (1) Description: Wound Care Order: Wound location: left inner thigh Wound type (etiology): Surgical Wound Order: Cleanse with Chlorahexadine or mild soap and water, rinse pat dry. apply lidocaine, pack with aquacell silver ag, cover with dry dressing Frequency: change every other day and as needed Wound care to be completed by patient except for scheduled SN wound care visits. Measure wound/incision at least weekly. Okay to substitute comparable products from home care formulary. Problem:SN Integumentary/Wounds Goal:Patient/Caregive r will have improved healing and be free of signs and symptoms of complications Completed Completed by SN. Patient did tolerate well. Instruct patient/caregiver healing process and management measures to promote healing and avoid complications Problem:SN Integumentary/Wounds Goal:Patient/Caregive r will have improved healing and be free of signs and symptoms of complications Completed patient instructed on the following: healing process, signs and symptoms of infection, importance of good nutrition, importance of managing blood sugars, smoking cessation and when to report symptoms. Instruct Patient/Caregiver on wound/incision care procedure as ordered by physician Problem:SN Integumentary/Wounds Goal:Patient/Caregive r will have improved healing and be free of signs and symptoms of complications Completed patient instructed on wound care as ordered by Physician. Continued need for Home Care Services Description: POC and certification renewed due to continuing [facility] needs. Problem:Recertificati on Goal:Ongoing review of POC and need for skilled services Completed documented in this encounter [facility]'s home Plan of care note* Visit Details Visit Type -SN ROUTINE Discipline -Half-Way Problems Problem Description Start Date Status Goals Interve ntions Medication Education Disciplines: Skilled Services 08/20/2022 Active 1 goal linked to scheduled/documen pawan intervention 1 goal intervention scheduled/document ed in this visit Sepsis Disciplines: Skilled Services 08/20/2022 Active 1 goal linked to scheduled/documen pawan intervention 1 goal intervention scheduled/document ed in this visit Physician Specific Parameters Disciplines: Skilled Services 08/20/2022 Active 1 goal linked to scheduled/documen pawan intervention 1 goal intervention scheduled/document ed in this visit Risk for Falls Disciplines: Skilled Services 08/20/2022 Active 1 goal linked to scheduled/documen pawan intervention 1 goal intervention scheduled/document ed in this visit Pain Disciplines: Skilled Services 08/20/2022 Active 1 goal linked to scheduled/documen pawan intervention 1 goal intervention scheduled/document ed in this visit Diabetic Foot Care Disciplines: Skilled Services 08/20/2022 Active 1 goal linked to scheduled/documen pawan intervention 1 goal intervention scheduled/document ed in this visit Oxygen Disciplines: Skilled Services 08/20/2022 Active 1 goal linked to scheduled/documen pawan intervention 1 goal intervention scheduled/document ed in this visit High Risk Medications Disciplines: Skilled Services 08/20/2022 Active 1 goal linked to scheduled/documen pawan intervention 4 goal interventions scheduled/document ed in this visit Discharge Disciplines: Skilled Services 08/20/2022 Active 1 goal linked to scheduled/documen pawan intervention 1 goal intervention scheduled/document ed in this visit SN Edema Disciplines: SN 08/20/2022 Active 1 goal linked to scheduled/documen pawan intervention 1 goal intervention scheduled/document ed in this visit SN Cardiovascular Condition Disciplines: SN 08/20/2022 Active 1 goal linked to scheduled/documen pawan intervention 1 goal intervention scheduled/document ed in this visit SN Learning Assessment Disciplines: SN 08/20/2022 Active 1 goal linked to scheduled/documen pawan intervention 1 goal intervention scheduled/document ed in this visit SN COPD Disciplines: SN 09/22/2022 Active 1 goal linked to scheduled/documen pawan intervention 2 goal interventions scheduled/document ed in this visit Recertification Disciplines: Skilled Services 12/17/2022 Active 1 goal linked to scheduled/documen pawan intervention 1 goal intervention scheduled/document ed in this visit SN Integumentary/Wound s Disciplines: SN 02/04/2023 Active 1 goal linked to scheduled/documen pawan intervention 3 goal interventions scheduled/document ed in this visit Recertification Disciplines: Skilled Services 02/13/2023 Active 1 goal linked to scheduled/documen pawan intervention 1 goal intervention scheduled/document ed in this visit Goals Goal Associated Problem Outcome Goal Met? Visit Notes Patient/caregiver will demonstrate ability to obtain, store, identify and administer ordered medications, keep accurate medication list in home, and adhere to medication schedule Description: Patient/caregiver will demonstrate ability to obtain, store, identify and administer ordered medications, keep accurate medication list in home, and adhere to medication schedule by 04-16-23. Medication Education No Patient/caregiver will be able to identify and report symptoms of sepsis Description: Patient/caregiver will be able to identify signs/symptoms of sepsis infection and will verbalize actions to take if suspected by 04-16-23. Sepsis No Patient to maintain parameters within physician-specified ranges throughout certification period Physician Specific Parameters No Manage Risk for falls Description: Patient/caregiver will verbalize knowledge of individualized fall prevention strategies by 04-16-23. Risk for Falls No Manage Pain Description: Patient/caregiver will verbalize knowledge and understanding of appropriate techniques to control pain, including pain medication and non-pharmacological techniques. Patient will verbalize or demonstrate an acceptable level of pain as evidenced by a pain score of 0-3/10 and improvement in ability to perform activities of daily living to be achieved by 04-16-23. Pain No Manage diabetic foot care Description: Patient/caregiver will demonstrate basic understanding of and compliance with diabetic self-care management as evidenced by verbalizing purpose of daily foot care and assessment by 04-16-23. Diabetic Foot Care No Manage oxygen Description: Patient/caregiver will use oxygen safely and effectively in home by verbalizing and demonstrating oxygen safety by 04-16-23. Oxygen No Patient/caregiver will teach back high risk medication side effect and precaution education High Risk Medications No Manage discharge planning Description: Patient/caregiver will verbalize understanding of ongoing discharge plan provided related to disease management, arrangements for outpatient and/or community services, obtaining medications, supplies, and DME, as needed throughout certification period. Discharge No Patient will have improved edema management Description: Patient/caregiver will demonstrate an understanding of edema management strategies as evidenced by resolution or stabilization of edema by 04-16-23. SN Edema No Improved management of cardiovascular disease Description: Improve patient/caregiver management of cardiac disease as evidenced by patient/caregiver ability to teach back cardiac management strategies by 04-16-23. SN Cardiovascular Condition No Demonstrate understanding of education Description: Patient and/or caregiver will verbalize understanding of educational instruction provided throughout certification period. SN Learning Assessment No Improved management of COPD Description: Improve COPD management as evidenced by decreased reports of dyspnea, medication compliance, and patient able to teach back strategies to manage condition. Goal to be achieved by 04-16-23 SN COPD No Ongoing review of POC and need for skilled services Recertification No Patient/Caregiver will have improved healing and be free of signs and symptoms of complications Description: Patient/caregiver will verbalize management strategies to promote wound healing & prevent complications as evidenced by improved healing & no complications. SN Integumentary/Wounds No Ongoing review of POC and need for skilled services Recertification No Interventions Intervention Associated Problem/Goal Status Variance Visit Notes Medication Education Description: Evaluate/instruct patient/caregiver on obtaining, storing, identifying and administering ordered medications as well as keeping accurate medication list in the home and adhereing to medication schedule Problem:Medication Education Goal:Patient/caregive r will demonstrate ability to obtain, store, identify and administer ordered medications, keep accurate medication list in home, and adhere to medication schedule Completed Patient instructed on importance of keeping accurate medication list in home, adhering to medication schedule and proper storage of medications. Risk of Sepsis Description: Patient is at risk for sepsis. Monitor closely for s/s of sepsis. Problem:Sepsis Goal:Patient/caregive r will be able to identify and report symptoms of sepsis Completed SPO2 Description: Notify if pulse ox is <92% at rest. Problem:Physician Specific Parameters Goal:Patient to maintain parameters within physician-specified ranges throughout certification period Completed Instruct on individual fall risk factors and strategies to prevent falls and injuries caused by falls. Problem:Risk for Falls Goal:Manage Risk for falls Completed SN: Patient instructed on Eliminating Environmental Hazards: Keep pathways clear, Keep pets out of pathways, Keep rooms and walkways well lit, Wear supportive shoes or non-skid socks and Keep frequently used items within reach Instruct on pain and instruct on strategies to control pain Problem:Pain Goal:Manage Pain Completed patient instructed on techniques to control pain including Pharmacological measures and Non-Pharmacological measures; rest, positioning/elevation, mobility/therapeutic exercise, distraction, breathing/relaxation and use of DME/assistive devices. Monitor lower extremities for skin lesions and educate on proper foot care Problem:Diabetic Foot Care Goal:Manage diabetic foot care Completed patient instructed on diabetic foot care including daily skin inspection, wearing proper footwear/avoiding going barefoot, wash/dry feet thoroughly, applying moisturizer, avoiding between toes and toenail care. Instruct on fire safety and safe and effective use of oxygen in the home Problem:Oxygen Goal:Manage oxygen Completed patient instructed on: findings of safety risk assessment, causes of fires, firerisks for neighboring residences and buildings, precautions that can prevent fire-related injuries and oxygen safety as outlined in Home Care Patient Handbook patient demonstrate compliance with safety recommendations. Opioids- educated on high risk medication Problem:High Risk Medications Goal:Patient/caregive r will teach back high risk medication side effect and precaution education Completed patient educated on taking medication(s) as prescribed by provider. Do not stop medication or alter doses without speaking with your provider. Discuss medication effectiveness or side effect concerns with your provider and home care team. Only take opioids as prescribed, do not share your medications, and take proper precautions in storing and properly disposing of opioids once no longer needed. Possible side effects of opioid medication including sedation, decreased rate of breathing, and constipation. Report over sedation to prescribing provider and practice deep breathing techniques every hour while awake. Prevent constipation by increasing water and fiber intake, increasing activity as tolerated, and use stool softener(s) as prescribed. Hypoglycemic (including insulin)- educated on high risk medication Problem:High Risk Medications Goal:Patient/caregive r will teach back high risk medication side effect and precaution education Completed patient educated on taking medication(s) as prescribed by provider. Do not stop medication or skip/alter doses without speaking with your provider. Discuss medication effectiveness or side effect concerns with your provider and home care team. Check blood sugars and keep log as ordered by provider. Monitor for side effects of hypoglycemia such as increased weakness or shaking, moist skin, sweating, fast heartbeat, dizziness, sudden hunger, confusion, pale skin, numbness in mouth or tongue, irritability, nervousness, unsteadiness, nightmares, bad dreams, and restless sleep. Checking your blood sugar routinely and eating a consistent diabetic diet can help regulate blood sugars and reduce side effects. Antiplatelet- educated on high risk medication Problem:High Risk Medications Goal:Patient/caregive r will teach back high risk medication side effect and precaution education Completed patient educated on taking medication(s) as prescribed by provider. Do not stop medication or alter doses without speaking with your provider. Discuss medication effectiveness or side effect concerns with your provider and home care team. Discuss all medications you are taking, even cqfc-ehg-tykoygr medicines, with your provider and pharmacist since many drugs can interact with antiplatelet medications. If you forget to take a dose, DO NOT take a double dose. Take the missed dose as soon as possible on the same day. DO NOT take a double dose the next day to make up for the missed dose. Watch for signs of abnormal or excessive bleeding and bruising (refer to Bleeding Precautions education). Call your health care provider right away if you suspect something is wrong. Antibiotic- educated on high risk medication Problem:High Risk Medications Goal:Patient/caregive r will teach back high risk medication side effect and precaution education Completed patient educated on taking medication(s) as prescribed by provider. Do not stop medication or alter doses without speaking with your provider. Discuss medication effectiveness or side effect concerns with your provider and home care team. Take the full dispensed amount even if you start feeling better, as bacteria can become resistant to antibiotic treatment if you do not finish your prescription. Common side effects are upset stomach and diarrhea. Take your antibiotics with food unless otherwise indicated to help with indigestion. Taking an udsb-nfs-temukgy probiotic or eating yogurt with live and active cultures three times a day can help prevent antibiotic-associated diarrhea. Call your provider immediately if you develop rashes or hives as this could be a delayed allergic reaction. Seek emergency treatment if you develop severe allergic reaction symptoms such as mouth or tongue swelling. Instruct on ongoing discharge plan Problem:Discharge Goal:Manage discharge planning Completed Ongoing Discharge plan: Discharge plan discussed with patient including frequency and duration for home SN and plan for transition to: caregiver assistance. Assess and instruct on measures to reduce edema Problem:SN Edema Goal:Patient will have improved edema management Completed patient instructed on elevation, compression, diet, medication compliance and benefits of activity. Instruct on cardiovascular disease process and management of condition Description: Patient has following cardiac diagnosis(es): CAD. Problem:SN Cardiovascular Condition Goal:Improved management of cardiovascular disease Completed patient instructed on cardiac disease process, self monitoring & symptom reporting and Cardiac Diet. Instruct and educate on knowledge deficits Problem:SN Learning Assessment Goal:Demonstrate understanding of education Completed patient verbalize and/or demonstrate understanding of nursing education completed today. Education methods include: verbal cues. Further education required to improve knowledge and compliance with depression/anxiety care management, diabetic care management, fall prevention/home safety strategies and incision/wound care management. Maintenance COPD Description: Reinforce Acute and Sub-acute management education. Instruct on review zone sheet, nutrition in relation to COPD management, energy conservation, pacing activities, independence in ADLs vs what caregiver should be helping with, home exercise, additional COPD resources available like chronic care clinics as found in the COPD binder. Problem:SN COPD Goal:Improved management of COPD Completed Reinforced Acute and Sub-acute management education. patient reinforced on zone sheet, nutrition in relation to COPD management and energy conservation pacing activities, Romeo in ADLs vs what caregiver should be helping with and home exercise as found in the COPD binder. Sub-acute COPD Description: Reinforce Acute COPD management education. Instruct on zone sheet, methods to reduce infection risks, anxiety management including relaxation techniques, importance of sleep, stress reduction, and coping strategies for living with COPD as found in the COPD binder. Problem:SN COPD Goal:Improved management of COPD Completed Reinforced Acute COPD management education. patient reinforced on zone sheet, methods to reduce infection risks, anxiety management including: relaxation techniques, importance of sleep and stress reduction and coping strategies for living with COPD as found in the COPD binder. Continued need for Home Care Services Description: POC and certification renewed due to continuing [facility] needs. Problem:Recertificati on Goal:Ongoing review of POC and need for skilled services Completed Wound Care: Perform wound care (1) Description: Wound Care Order: Wound location: left inner thigh Wound type (etiology): Surgical Wound Order: Cleanse with Chlorahexadine or mild soap and water, rinse pat dry. apply lidocaine, pack with aquacell silver ag, cover with dry dressing Frequency: change every other day and as needed Wound care to be completed by patient except for scheduled SN wound care visits. Measure wound/incision at least weekly. Okay to substitute comparable products from home care formulary. Problem:SN Integumentary/Wounds Goal:Patient/Caregive r will have improved healing and be free of signs and symptoms of complications Completed Completed by patient/caregiver completed independently . Patient did tolerate well. Instruct patient/caregiver healing process and management measures to promote healing and avoid complications Problem:SN Integumentary/Wounds Goal:Patient/Caregive r will have improved healing and be free of signs and symptoms of complications Completed patient instructed on the following: healing process, signs and symptoms of infection, importance of good nutrition, importance of managing blood sugars, smoking cessation and when to report symptoms. Instruct Patient/Caregiver on wound/incision care procedure as ordered by physician Problem:SN Integumentary/Wounds Goal:Patient/Caregive r will have improved healing and be free of signs and symptoms of complications Completed patient instructed on and return demonstrated wound care as ordered by Physician. Continued need for Home Care Services Description: POC and certification renewed due to continuing [facility] needs. Problem:Recertificati on Goal:Ongoing review of POC and need for skilled services Completed documented in this encounter [facility]'s home Plan of care note* Visit Details Visit Type -SN ROUTINE Discipline -Half-Way Problems Problem Description Start Date Status Goals Interve ntions Medication Education Disciplines: Skilled Services 08/20/2022 Active 1 goal linked to scheduled/documen pawan intervention 1 goal intervention scheduled/document ed in this visit Sepsis Disciplines: Skilled Services 08/20/2022 Active 1 goal linked to scheduled/documen pawan intervention 1 goal intervention scheduled/document ed in this visit Physician Specific Parameters Disciplines: Skilled Services 08/20/2022 Active 1 goal linked to scheduled/documen pawan intervention 1 goal intervention scheduled/document ed in this visit Risk for Falls Disciplines: Skilled Services 08/20/2022 Active 1 goal linked to scheduled/documen pawan intervention 1 goal intervention scheduled/document ed in this visit Pain Disciplines: Skilled Services 08/20/2022 Active 1 goal linked to scheduled/documen pawan intervention 1 goal intervention scheduled/document ed in this visit Diabetic Foot Care Disciplines: Skilled Services 08/20/2022 Active 1 goal linked to scheduled/documen pawan intervention 1 goal intervention scheduled/document ed in this visit Oxygen Disciplines: Skilled Services 08/20/2022 Active 1 goal linked to scheduled/documen pawan intervention 1 goal intervention scheduled/document ed in this visit High Risk Medications Disciplines: Skilled Services 08/20/2022 Active 1 goal linked to scheduled/documen pawan intervention 4 goal interventions scheduled/document ed in this visit Discharge Disciplines: Skilled Services 08/20/2022 Active 1 goal linked to scheduled/documen pawan intervention 1 goal intervention scheduled/document ed in this visit SN Edema Disciplines: SN 08/20/2022 Active 1 goal linked to scheduled/documen pawan intervention 1 goal intervention scheduled/document ed in this visit SN Diabetes Disciplines: SN 08/20/2022 Active 1 goal linked to scheduled/documen pawan intervention 1 goal intervention scheduled/document ed in this visit SN Cardiovascular Condition Disciplines: SN 08/20/2022 Active 1 goal linked to scheduled/documen pawan intervention 1 goal intervention scheduled/document ed in this visit SN Learning Assessment Disciplines: SN 08/20/2022 Active 1 goal linked to scheduled/documen pawan intervention 1 goal intervention scheduled/document ed in this visit SN COPD Disciplines: SN 09/22/2022 Active 1 goal linked to scheduled/documen pawan intervention 2 goal interventions scheduled/document ed in this visit Recertification Disciplines: Skilled Services 12/17/2022 Active 1 goal linked to scheduled/documen pawan intervention 1 goal intervention scheduled/document ed in this visit SN Integumentary/Wound s Disciplines: SN 02/04/2023 Active 1 goal linked to scheduled/documen pawan intervention 5 goal interventions scheduled/document ed in this visit Recertification Disciplines: Skilled Services 02/13/2023 Active 1 goal linked to scheduled/documen pawan intervention 1 goal intervention scheduled/document ed in this visit Goals Goal Associated Problem Outcome Goal Met? Visit Notes Patient/caregiver will demonstrate ability to obtain, store, identify and administer ordered medications, keep accurate medication list in home, and adhere to medication schedule Description: Patient/caregiver will demonstrate ability to obtain, store, identify and administer ordered medications, keep accurate medication list in home, and adhere to medication schedule by 9-14-23. Medication Education No Patient/caregiver will be able to identify and report symptoms of sepsis Description: Patient/caregiver will be able to identify signs/symptoms of sepsis infection and will verbalize actions to take if suspected by 04-16-23. Sepsis No Patient to maintain parameters within physician-specified ranges throughout certification period Physician Specific Parameters No Manage Risk for falls Description: Patient/caregiver will verbalize knowledge of individualized fall prevention strategies by 04-16-23. Risk for Falls No Manage Pain Description: Patient/caregiver will verbalize knowledge and understanding of appropriate techniques to control pain, including pain medication and non-pharmacological techniques. Patient will verbalize or demonstrate an acceptable level of pain as evidenced by a pain score of 0-3/10 and improvement in ability to perform activities of daily living to be achieved by 04-16-23. Pain No Manage diabetic foot care Description: Patient/caregiver will demonstrate basic understanding of and compliance with diabetic self-care management as evidenced by verbalizing purpose of daily foot care and assessment by 04-16-23. Diabetic Foot Care No Manage oxygen Description: Patient/caregiver will use oxygen safely and effectively in home by verbalizing and demonstrating oxygen safety by 04-16-23. Oxygen No Patient/caregiver will teach back high risk medication side effect and precaution education High Risk Medications No Manage discharge planning Description: Patient/caregiver will verbalize understanding of ongoing discharge plan provided related to disease management, arrangements for outpatient and/or community services, obtaining medications, supplies, and DME, as needed throughout certification period. Discharge No Patient will have improved edema management Description: Patient/caregiver will demonstrate an understanding of edema management strategies as evidenced by resolution or stabilization of edema by 04-16-23. SN Edema No Improved management of diabetes Description: Improve diabetic management as evidenced by patient/caregiver able to teach back diabetic management strategies by 04-16-23. SN Diabetes No Improved management of cardiovascular disease Description: Improve patient/caregiver management of cardiac disease as evidenced by patient/caregiver ability to teach back cardiac management strategies by 04-16-23. SN Cardiovascular Condition No Demonstrate understanding of education Description: Patient and/or caregiver will verbalize understanding of educational instruction provided throughout certification period. SN Learning Assessment No Improved management of COPD Description: Improve COPD management as evidenced by decreased reports of dyspnea, medication compliance, and patient able to teach back strategies to manage condition. Goal to be achieved by 04-16-23 SN COPD No Ongoing review of POC and need for skilled services Recertification No Patient/Caregiver will have improved healing and be free of signs and symptoms of complications Description: Patient/caregiver will verbalize management strategies to promote wound healing & prevent complications as evidenced by improved healing & no complications. SN Integumentary/Wounds No Ongoing review of POC and need for skilled services Recertification No Interventions Intervention Associated Problem/Goal Status Variance Visit Notes Medication Education Description: Evaluate/instruct patient/caregiver on obtaining, storing, identifying and administering ordered medications as well as keeping accurate medication list in the home and adhereing to medication schedule Problem:Medication Education Goal:Patient/caregive r will demonstrate ability to obtain, store, identify and administer ordered medications, keep accurate medication list in home, and adhere to medication schedule Completed Patient instructed on importance of keeping accurate medication list in home, adhering to medication schedule and proper storage of medications. Risk of Sepsis Description: Patient is at risk for sepsis. Monitor closely for s/s of sepsis. Problem:Sepsis Goal:Patient/caregive r will be able to identify and report symptoms of sepsis Completed SPO2 Description: Notify if pulse ox is <92% at rest. Problem:Physician Specific Parameters Goal:Patient to maintain parameters within physician-specified ranges throughout certification period Completed Instruct on individual fall risk factors and strategies to prevent falls and injuries caused by falls. Problem:Risk for Falls Goal:Manage Risk for falls Completed SN: Patient instructed on Eliminating Environmental Hazards: Keep pathways clear, Keep pets out of pathways, Keep rooms and walkways well lit, Wear supportive shoes or non-skid socks and Keep frequently used items within reach Instruct on pain and instruct on strategies to control pain Problem:Pain Goal:Manage Pain Completed patient instructed on techniques to control pain including Pharmacological measures and Non-Pharmacological measures; rest, positioning/elevation, mobility/therapeutic exercise, distraction and breathing/relaxation. Monitor lower extremities for skin lesions and educate on proper foot care Problem:Diabetic Foot Care Goal:Manage diabetic foot care Completed patient instructed on diabetic foot care including daily skin inspection, wearing proper footwear/avoiding going barefoot, wash/dry feet thoroughly, applying moisturizer, avoiding between toes and toenail care. Instruct on fire safety and safe and effective use of oxygen in the home Problem:Oxygen Goal:Manage oxygen Completed patient instructed on: findings of safety risk assessment, causes of fires, firerisks for neighboring residences and buildings, precautions that can prevent fire-related injuries, oxygen safety as outlined in Home Care Patient Handbook and recommendations for specific safety risks identified in the home: maintenance of working smoke detectors and changing batteries, establishment of fire escape plan, telephone accessibility and implementation of no-smoking policy in home, including e-cigarettes and posting of No-Smoking signs on entrance doors patient demonstrate compliance with safety recommendations. Opioids- educated on high risk medication Problem:High Risk Medications Goal:Patient/caregive r will teach back high risk medication side effect and precaution education Completed patient educated on taking medication(s) as prescribed by provider. Do not stop medication or alter doses without speaking with your provider. Discuss medication effectiveness or side effect concerns with your provider and home care team. Only take opioids as prescribed, do not share your medications, and take proper precautions in storing and properly disposing of opioids once no longer needed. Possible side effects of opioid medication including sedation, decreased rate of breathing, and constipation. Report over sedation to prescribing provider and practice deep breathing techniques every hour while awake. Prevent constipation by increasing water and fiber intake, increasing activity as tolerated, and use stool softener(s) as prescribed. Hypoglycemic (including insulin)- educated on high risk medication Problem:High Risk Medications Goal:Patient/caregive r will teach back high risk medication side effect and precaution education Completed patient educated on taking medication(s) as prescribed by provider. Do not stop medication or skip/alter doses without speaking with your provider. Discuss medication effectiveness or side effect concerns with your provider and home care team. Check blood sugars and keep log as ordered by provider. Monitor for side effects of hypoglycemia such as increased weakness or shaking, moist skin, sweating, fast heartbeat, dizziness, sudden hunger, confusion, pale skin, numbness in mouth or tongue, irritability, nervousness, unsteadiness, nightmares, bad dreams, and restless sleep. Checking your blood sugar routinely and eating a consistent diabetic diet can help regulate blood sugars and reduce side effects. Antiplatelet- educated on high risk medication Problem:High Risk Medications Goal:Patient/caregive r will teach back high risk medication side effect and precaution education Completed patient educated on taking medication(s) as prescribed by provider. Do not stop medication or alter doses without speaking with your provider. Discuss medication effectiveness or side effect concerns with your provider and home care team. Discuss all medications you are taking, even [id number]-[id number]-crpnosx medicines, with your provider and pharmacist since many drugs can interact with antiplatelet medications. If you forget to take a dose, DO NOT take a double dose. Take the missed dose as soon as possible on the same day. DO NOT take a double dose the next day to make up for the missed dose. Watch for signs of abnormal or excessive bleeding and bruising (refer to Bleeding Precautions education). Call your health care provider right away if you suspect something is wrong. Antibiotic- educated on high risk medication Problem:High Risk Medications Goal:Patient/caregive r will teach back high risk medication side effect and precaution education Completed patient educated on taking medication(s) as prescribed by provider. Do not stop medication or alter doses without speaking with your provider. Discuss medication effectiveness or side effect concerns with your provider and home care team. Take the full dispensed amount even if you start feeling better, as bacteria can become resistant to antibiotic treatment if you do not finish your prescription. Common side effects are upset stomach and diarrhea. Take your antibiotics with food unless otherwise indicated to help with indigestion. Taking an sjvj-erc-hsbqasx probiotic or eating yogurt with live and active cultures three times a day can help prevent antibiotic-associated diarrhea. Call your provider immediately if you develop rashes or hives as this could be a delayed allergic reaction. Seek emergency treatment if you develop severe allergic reaction symptoms such as mouth or tongue swelling. Instruct on ongoing discharge plan Problem:Discharge Goal:Manage discharge planning Completed Ongoing Discharge plan: Discharge plan discussed with patient including frequency and duration for home SN and plan for transition to: caregiver assistance. Assess and instruct on measures to reduce edema Problem:SN Edema Goal:Patient will have improved edema management Completed patient instructed on elevation, compression, diet, medication compliance and benefits of activity. Instruct on diabetes disease process and management of chronic condition Description: Patient has needs for education of diabetes. Problem:SN Diabetes Goal:Improved management of diabetes Completed patient assessed and reinforced on diabetes disease process, diet education, how to carb count, recogonizing s/s of hypoglycemia and hyperglycemia and managing sick days as found in the diabetes self-care booklets. Instruct on cardiovascular disease process and management of condition Description: Patient has following cardiac diagnosis(es): CAD. Problem:SN Cardiovascular Condition Goal:Improved management of cardiovascular disease Completed patient instructed on cardiac disease process, self monitoring & symptom reporting and Cardiac Diet. Instruct and educate on knowledge deficits Problem:SN Learning Assessment Goal:Demonstrate understanding of education Completed patient verbalize and/or demonstrate understanding of nursing education completed today. Education methods include: verbal cues. Further education required to improve knowledge and compliance with cardiac disease management, diabetic care management, fall prevention/home safety strategies and incision/wound care management. Maintenance COPD Description: Reinforce Acute and Sub-acute management education. Instruct on review zone sheet, nutrition in relation to COPD management, energy conservation, pacing activities, independence in ADLs vs what caregiver should be helping with, home exercise, additional COPD resources available like chronic care clinics as found in the COPD binder. Problem:SN COPD Goal:Improved management of COPD Completed Reinforced Acute and Sub-acute management education. patient reinforced on zone sheet, nutrition in relation to COPD management and energy conservation pacing activities and Romeo in ADLs vs what caregiver should be helping with as found in the COPD binder. Acute COPD Description: Instruct on defintion of COPD, signs and symptoms of COPD exacerbation, use of zone sheet, use of MDIs, difference between rescue vs maintenance inhalers, use of nebulizer, smoking cessation, breathing management including pursed lip breathing, diaphragmatic breathing, positioning to reduce SOB, controlled coughing, use of incentive spirometer, and use of acapela as found in the COPD binder. Problem:SN COPD Goal:Improved management of COPD Completed patient reinforced on defintion of COPD, signs and symptoms of COPD exacerbation, use of zone sheet, use of nebulizer, smoking cessation and breathing management: pursed lip breathing, diaphragmatic breathing and positioning to reduce SOB as found in the COPD binder. Continued need for Home Care Services Description: POC and certification renewed due to continuing [facility] needs. Problem:Recertificati on Goal:Ongoing review of POC and need for skilled services Completed Wound Care: Peform wound care (3) Description: Wound Care Order: Wound location: scrotum Wound type (etiology): Traumatic Order: Cleanse with Chlorahexadine or mild soap and water, rinse pat dry. apply lidocaine, apply protective barrier cream cover with dry dressing Frequency: daily and as needed for soiled Wound care to be completed by patient except for scheduled SN wound care visits. Measure wound/incision at least weekly. Okay to substitute comparable products from home care formulary. Problem:SN Integumentary/Wounds Goal:Patient/Caregive r will have improved healing and be free of signs and symptoms of complications Completed Completed by SN. Patient did tolerate well. Wound Care: Perform wound care (2) Description: Wound Care Order: Wound location: Left inner thigh Wound type (etiology): Boil Order: Cleanse with Chlorahexadine or mild soap and water, rinse pat dry. apply lidocaine, pack with aquacell silver ag, cover with dry dressing Frequency: every other day and as needed for soiled Wound care to be completed by patient except for scheduled SN wound care visits. Measure wound/incision at least weekly. Okay to substitute comparable products from home care formulary. Problem:SN Integumentary/Wounds Goal:Patient/Caregive r will have improved healing and be free of signs and symptoms of complications Completed Completed by SN. Patient did tolerate well. Wound Care: Perform wound care (1) Description: Wound Care Order: Wound location: left inner thigh Wound type (etiology): Surgical Wound Order: Cleanse with Chlorahexadine or mild soap and water, rinse pat dry. apply lidocaine, pack with aquacell silver ag, cover with dry dressing Frequency: change every other day and as needed Wound care to be completed by patient except for scheduled SN wound care visits. Measure wound/incision at least weekly. Okay to substitute comparable products from home care formulary. Problem:SN Integumentary/Wounds Goal:Patient/Caregive r will have improved healing and be free of signs and symptoms of complications Completed Completed by SN. Patient did tolerate well. Instruct patient/caregiver healing process and management measures to promote healing and avoid complications Problem:SN Integumentary/Wounds Goal:Patient/Caregive r will have improved healing and be free of signs and symptoms of complications Completed patient instructed on the following: healing process, signs and symptoms of infection, importance of good nutrition, importance of managing blood sugars, smoking cessation and when to report symptoms. Instruct Patient/Caregiver on wound/incision care procedure as ordered by physician Problem:SN Integumentary/Wounds Goal:Patient/Caregive r will have improved healing and be free of signs and symptoms of complications Completed patient instructed on and return demonstrated wound care as ordered by Physician. Continued need for Home Care Services Description: POC and certification renewed due to continuing [facility] needs. Problem:Recertificati on Goal:Ongoing review of POC and need for skilled services Completed documented in this encounter [facility]'s home Plan of care note* Visit Details Visit Type -SN ROUTINE Discipline -Half-Way Problems Problem Description Start Date Status Goals Interve ntions Medication Education Disciplines: Skilled Services 08/20/2022 Active 1 goal linked to scheduled/documen pawan intervention 1 goal intervention scheduled/document ed in this visit Sepsis Disciplines: Skilled Services 08/20/2022 Active 1 goal linked to scheduled/documen pawan intervention 1 goal intervention scheduled/document ed in this visit Physician Specific Parameters Disciplines: Skilled Services 08/20/2022 Active 1 goal linked to scheduled/documen pawan intervention 1 goal intervention scheduled/document ed in this visit Risk for Falls Disciplines: Skilled Services 08/20/2022 Active 1 goal linked to scheduled/documen pawan intervention 1 goal intervention scheduled/document ed in this visit Pain Disciplines: Skilled Services 08/20/2022 Active 1 goal linked to scheduled/documen pawan intervention 1 goal intervention scheduled/document ed in this visit Diabetic Foot Care Disciplines: Skilled Services 08/20/2022 Active 1 goal linked to scheduled/documen pawan intervention 1 goal intervention scheduled/document ed in this visit Oxygen Disciplines: Skilled Services 08/20/2022 Active 1 goal linked to scheduled/documen pawan intervention 1 goal intervention scheduled/document ed in this visit High Risk Medications Disciplines: Skilled Services 08/20/2022 Active 1 goal linked to scheduled/documen pawan intervention 4 goal interventions scheduled/document ed in this visit Discharge Disciplines: Skilled Services 08/20/2022 Active 1 goal linked to scheduled/documen pawan intervention 1 goal intervention scheduled/document ed in this visit SN Edema Disciplines: SN 08/20/2022 Active 1 goal linked to scheduled/documen pawan intervention 1 goal intervention scheduled/document ed in this visit SN Diabetes Disciplines: SN 08/20/2022 Active 1 goal linked to scheduled/documen pawan intervention 1 goal intervention scheduled/document ed in this visit SN Cardiovascular Condition Disciplines: SN 08/20/2022 Active 1 goal linked to scheduled/documen pawan intervention 1 goal intervention scheduled/document ed in this visit SN Learning Assessment Disciplines: SN 08/20/2022 Active 1 goal linked to scheduled/documen pawan intervention 1 goal intervention scheduled/document ed in this visit SN COPD Disciplines: SN 09/22/2022 Active 1 goal linked to scheduled/documen pawan intervention 1 goal intervention scheduled/document ed in this visit Recertification Disciplines: Skilled Services 12/17/2022 Active 1 goal linked to scheduled/documen pawan intervention 1 goal intervention scheduled/document ed in this visit SN Integumentary/Wound s Disciplines: SN 02/04/2023 Active 1 goal linked to scheduled/documen pawan intervention 5 goal interventions scheduled/document ed in this visit Recertification Disciplines: Skilled Services 02/13/2023 Active 1 goal linked to scheduled/documen pawan intervention 1 goal intervention scheduled/document ed in this visit Goals Goal Associated Problem Outcome Goal Met? Visit Notes Patient/caregiver will demonstrate ability to obtain, store, identify and administer ordered medications, keep accurate medication list in home, and adhere to medication schedule Description: Patient/caregiver will demonstrate ability to obtain, store, identify and administer ordered medications, keep accurate medication list in home, and adhere to medication schedule by 04-16-23. Medication Education No Patient/caregiver will be able to identify and report symptoms of sepsis Description: Patient/caregiver will be able to identify signs/symptoms of sepsis infection and will verbalize actions to take if suspected by 04-16-23. Sepsis No Patient to maintain parameters within physician-specified ranges throughout certification period Physician Specific Parameters No Manage Risk for falls Description: Patient/caregiver will verbalize knowledge of individualized fall prevention strategies by 04-16-23. Risk for Falls No Manage Pain Description: Patient/caregiver will verbalize knowledge and understanding of appropriate techniques to control pain, including pain medication and non-pharmacological techniques. Patient will verbalize or demonstrate an acceptable level of pain as evidenced by a pain score of 0-3/10 and improvement in ability to perform activities of daily living to be achieved by 04-16-23. Pain No Manage diabetic foot care Description: Patient/caregiver will demonstrate basic understanding of and compliance with diabetic self-care management as evidenced by verbalizing purpose of daily foot care and assessment by 04-16-23. Diabetic Foot Care No Manage oxygen Description: Patient/caregiver will use oxygen safely and effectively in home by verbalizing and demonstrating oxygen safety by 04-16-23. Oxygen No Patient/caregiver will teach back high risk medication side effect and precaution education High Risk Medications No Manage discharge planning Description: Patient/caregiver will verbalize understanding of ongoing discharge plan provided related to disease management, arrangements for outpatient and/or community services, obtaining medications, supplies, and DME, as needed throughout certification period. Discharge No Patient will have improved edema management Description: Patient/caregiver will demonstrate an understanding of edema management strategies as evidenced by resolution or stabilization of edema by 04-16-23. SN Edema No Improved management of diabetes Description: Improve diabetic management as evidenced by patient/caregiver able to teach back diabetic management strategies by 04-16-23. SN Diabetes No Improved management of cardiovascular disease Description: Improve patient/caregiver management of cardiac disease as evidenced by patient/caregiver ability to teach back cardiac management strategies by 04-16-23. SN Cardiovascular Condition No Demonstrate understanding of education Description: Patient and/or caregiver will verbalize understanding of educational instruction provided throughout certification period. SN Learning Assessment No Improved management of COPD Description: Improve COPD management as evidenced by decreased reports of dyspnea, medication compliance, and patient able to teach back strategies to manage condition. Goal to be achieved by 04-16-23 SN COPD No Ongoing review of POC and need for skilled services Recertification No Patient/Caregiver will have improved healing and be free of signs and symptoms of complications Description: Patient/caregiver will verbalize management strategies to promote wound healing & prevent complications as evidenced by improved healing & no complications. SN Integumentary/Wounds No Ongoing review of POC and need for skilled services Recertification No Interventions Intervention Associated Problem/Goal Status Variance Visit Notes Medication Education Description: Evaluate/instruct patient/caregiver on obtaining, storing, identifying and administering ordered medications as well as keeping accurate medication list in the home and adhereing to medication schedule Problem:Medication Education Goal:Patient/caregive r will demonstrate ability to obtain, store, identify and administer ordered medications, keep accurate medication list in home, and adhere to medication schedule Completed Patient instructed on importance of keeping accurate medication list in home, adhering to medication schedule and proper storage of medications. Risk of Sepsis Description: Patient is at risk for sepsis. Monitor closely for s/s of sepsis. Problem:Sepsis Goal:Patient/caregive r will be able to identify and report symptoms of sepsis Completed SPO2 Description: Notify if pulse ox is <92% at rest. Problem:Physician Specific Parameters Goal:Patient to maintain parameters within physician-specified ranges throughout certification period Completed Instruct on individual fall risk factors and strategies to prevent falls and injuries caused by falls. Problem:Risk for Falls Goal:Manage Risk for falls Completed SN: Patient instructed on Eliminating Environmental Hazards: Keep pathways clear and Keep pets out of pathways Instruct on pain and instruct on strategies to control pain Problem:Pain Goal:Manage Pain Completed patient instructed on techniques to control pain including Pharmacological measures and Non-Pharmacological measures; rest, positioning/elevation, mobility/therapeutic exercise, distraction, breathing/relaxation and use of DME/assistive devices. Monitor lower extremities for skin lesions and educate on proper foot care Problem:Diabetic Foot Care Goal:Manage diabetic foot care Completed patient instructed on diabetic foot care including daily skin inspection, wearing proper footwear/avoiding going barefoot, wash/dry feet thoroughly, applying moisturizer, avoiding between toes and toenail care. Instruct on fire safety and safe and effective use of oxygen in the home Problem:Oxygen Goal:Manage oxygen Completed patient instructed on: findings of safety risk assessment, causes of fires, firerisks for neighboring residences and buildings, precautions that can prevent fire-related injuries and oxygen safety as outlined in Home Care Patient Handbook patient demonstrate compliance with safety recommendations. Opioids- educated on high risk medication Problem:High Risk Medications Goal:Patient/caregive r will teach back high risk medication side effect and precaution education Completed patient educated on taking medication(s) as prescribed by provider. Do not stop medication or alter doses without speaking with your provider. Discuss medication effectiveness or side effect concerns with your provider and home care team. Only take opioids as prescribed, do not share your medications, and take proper precautions in storing and properly disposing of opioids once no longer needed. Possible side effects of opioid medication including sedation, decreased rate of breathing, and constipation. Report over sedation to prescribing provider and practice deep breathing techniques every hour while awake. Prevent constipation by increasing water and fiber intake, increasing activity as tolerated, and use stool softener(s) as prescribed. Hypoglycemic (including insulin)- educated on high risk medication Problem:High Risk Medications Goal:Patient/caregive r will teach back high risk medication side effect and precaution education Completed patient educated on taking medication(s) as prescribed by provider. Do not stop medication or skip/alter doses without speaking with your provider. Discuss medication effectiveness or side effect concerns with your provider and home care team. Check blood sugars and keep log as ordered by provider. Monitor for side effects of hypoglycemia such as increased weakness or shaking, moist skin, sweating, fast heartbeat, dizziness, sudden hunger, confusion, pale skin, numbness in mouth or tongue, irritability, nervousness, unsteadiness, nightmares, bad dreams, and restless sleep. Checking your blood sugar routinely and eating a consistent diabetic diet can help regulate blood sugars and reduce side effects. Antiplatelet- educated on high risk medication Problem:High Risk Medications Goal:Patient/caregive r will teach back high risk medication side effect and precaution education Completed patient educated on taking medication(s) as prescribed by provider. Do not stop medication or alter doses without speaking with your provider. Discuss medication effectiveness or side effect concerns with your provider and home care team. Discuss all medications you are taking, even pzae-mfa-szqwdte medicines, with your provider and pharmacist since many drugs can interact with antiplatelet medications. If you forget to take a dose, DO NOT take a double dose. Take the missed dose as soon as possible on the same day. DO NOT take a double dose the next day to make up for the missed dose. Watch for signs of abnormal or excessive bleeding and bruising (refer to Bleeding Precautions education). Call your health care provider right away if you suspect something is wrong. Antibiotic- educated on high risk medication Problem:High Risk Medications Goal:Patient/caregive r will teach back high risk medication side effect and precaution education Completed patient educated on taking medication(s) as prescribed by provider. Do not stop medication or alter doses without speaking with your provider. Discuss medication effectiveness or side effect concerns with your provider and home care team. Take the full dispensed amount even if you start feeling better, as bacteria can become resistant to antibiotic treatment if you do not finish your prescription. Common side effects are upset stomach and diarrhea. Take your antibiotics with food unless otherwise indicated to help with indigestion. Taking an swvm-wzl-inwvfue probiotic or eating yogurt with live and active cultures three times a day can help prevent antibiotic-associated diarrhea. Call your provider immediately if you develop rashes or hives as this could be a delayed allergic reaction. Seek emergency treatment if you develop severe allergic reaction symptoms such as mouth or tongue swelling. Instruct on ongoing discharge plan Problem:Discharge Goal:Manage discharge planning Completed Ongoing Discharge plan: Discharge plan discussed with patient including frequency and duration for home SN and plan for transition to: caregiver assistance. Assess and instruct on measures to reduce edema Problem:SN Edema Goal:Patient will have improved edema management Completed patient instructed on elevation, compression, diet, medication compliance and benefits of activity. Instruct on diabetes disease process and management of chronic condition Description: Patient has needs for education of diabetes. Problem:SN Diabetes Goal:Improved management of diabetes Completed patient assessed and reinforced on diabetes disease process, diet education, how to carb count and recogonizing s/s of hypoglycemia and hyperglycemia as found in the diabetes self-care booklets. Instruct on cardiovascular disease process and management of condition Description: Patient has following cardiac diagnosis(es): CAD. Problem:SN Cardiovascular Condition Goal:Improved management of cardiovascular disease Completed patient instructed on cardiac disease process, self monitoring & symptom reporting and Cardiac Diet. Instruct and educate on knowledge deficits Problem:SN Learning Assessment Goal:Demonstrate understanding of education Completed patient verbalize and/or demonstrate understanding of nursing education completed today. Education methods include: verbal cues. Further education required to improve knowledge and compliance with diabetic care management, fall prevention/home safety strategies and incision/wound care management. Maintenance COPD Description: Reinforce Acute and Sub-acute management education. Instruct on review zone sheet, nutrition in relation to COPD management, energy conservation, pacing activities, independence in ADLs vs what caregiver should be helping with, home exercise, additional COPD resources available like chronic care clinics as found in the COPD binder. Problem:SN COPD Goal:Improved management of COPD Completed Reinforced Acute and Sub-acute management education. patient reinforced on zone sheet, nutrition in relation to COPD management and energy conservation pacing activities, Romeo in ADLs vs what caregiver should be helping with and home exercise as found in the COPD binder. Continued need for Home Care Services Description: POC and certification renewed due to continuing [facility] needs. Problem:Recertificati on Goal:Ongoing review of POC and need for skilled services Completed Wound Care: Peform wound care (3) Description: Wound Care Order: Wound location: scrotum Wound type (etiology): Traumatic Order: Cleanse with Chlorahexadine or mild soap and water, rinse pat dry. apply lidocaine, apply protective barrier cream cover with dry dressing Frequency: daily and as needed for soiled Wound care to be completed by patient except for scheduled SN wound care visits. Measure wound/incision at least weekly. Okay to substitute comparable products from home care formulary. Problem:SN Integumentary/Wounds Goal:Patient/Caregive r will have improved healing and be free of signs and symptoms of complications Completed Completed by patient/caregiver completed independently . Patient did tolerate well. Wound Care: Perform wound care (2) Description: Wound Care Order: Wound location: Left inner thigh Wound type (etiology): Boil Order: Cleanse with Chlorahexadine or mild soap and water, rinse pat dry. apply lidocaine, pack with aquacell silver ag, cover with dry dressing Frequency: every other day and as needed for soiled Wound care to be completed by patient except for scheduled SN wound care visits. Measure wound/incision at least weekly. Okay to substitute comparable products from home care formulary. Problem:SN Integumentary/Wounds Goal:Patient/Caregive r will have improved healing and be free of signs and symptoms of complications Completed Completed by patient/caregiver completed independently . Patient did tolerate well. Wound Care: Perform wound care (1) Description: Wound Care Order: Wound location: left inner thigh Wound type (etiology): Surgical Wound Order: Cleanse with Chlorahexadine or mild soap and water, rinse pat dry. apply lidocaine, pack with aquacell silver ag, cover with dry dressing Frequency: change every other day and as needed Wound care to be completed by patient except for scheduled SN wound care visits. Measure wound/incision at least weekly. Okay to substitute comparable products from home care formulary. Problem:SN Integumentary/Wounds Goal:Patient/Caregive r will have improved healing and be free of signs and symptoms of complications Completed Completed by patient/caregiver completed independently . Patient did tolerate well. Instruct patient/caregiver healing process and management measures to promote healing and avoid complications Problem:SN Integumentary/Wounds Goal:Patient/Caregive r will have improved healing and be free of signs and symptoms of complications Completed patient instructed on the following: healing process, signs and symptoms of infection, importance of good nutrition, importance of managing blood sugars, smoking cessation and when to report symptoms. Instruct Patient/Caregiver on wound/incision care procedure as ordered by physician Problem:SN Integumentary/Wounds Goal:Patient/Caregive r will have improved healing and be free of signs and symptoms of complications Completed patient instructed on and return demonstrated wound care as ordered by Physician. Continued need for Home Care Services Description: POC and certification renewed due to continuing [facility] needs. Problem:Recertificati on Goal:Ongoing review of POC and need for skilled services Completed documented in this encounter [facility]'s home Plan of care note* Visit Details Visit Type -SN ROUTINE Discipline -Half-Way Problems Problem Description Start Date Status Goals Interve ntions Sepsis Disciplines: Skilled Services 08/20/2022 Active 1 goal linked to scheduled/document ed intervention 1 goal intervention scheduled/documente d in this visit Diabetic Foot Care Disciplines: Skilled Services 08/20/2022 Active 1 goal linked to scheduled/document ed intervention 1 goal intervention scheduled/documente d in this visit Oxygen Disciplines: Skilled Services 08/20/2022 Active 1 goal linked to scheduled/document ed intervention 1 goal intervention scheduled/documente d in this visit Discharge Disciplines: Skilled Services 08/20/2022 Active 1 goal linked to scheduled/document ed intervention 1 goal intervention scheduled/documente d in this visit SN Integumentary/W ounds Disciplines: SN 02/04/2023 Active 1 goal linked to scheduled/document ed intervention 1 goal intervention scheduled/documente d in this visit Goals Goal Associated Problem Outcome Goal Met? Visit Notes Patient/caregiver will be able to identify and report symptoms of sepsis Description: Patient/caregiver will be able to identify signs/symptoms of sepsis infection and will verbalize actions to take if suspected by 04-16-23. Sepsis No Manage diabetic foot care Description: Patient/caregiver will demonstrate basic understanding of and compliance with diabetic self-care management as evidenced by verbalizing purpose of daily foot care and assessment by 04-16-23. Diabetic Foot Care No Manage oxygen Description: Patient/caregiver will use oxygen safely and effectively in home by verbalizing and demonstrating oxygen safety by 04-16-23. Oxygen No Manage discharge planning Description: Patient/caregiver will verbalize understanding of ongoing discharge plan provided related to disease management, arrangements for outpatient and/or community services, obtaining medications, supplies, and DME, as needed throughout certification period. Discharge No Patient/Caregiver will have improved healing and be free of signs and symptoms of complications Description: Patient/caregiver will verbalize management strategies to promote wound healing & prevent complications as evidenced by improved healing & no complications. SN Integumentary/Wounds No Interventions Intervention Associated Problem/Goal Status Variance Visit Notes Risk of Sepsis Description: Patient is at risk for sepsis. Monitor closely for s/s of sepsis. Problem:Sepsis Goal:Patient/caregiver will be able to identify and report symptoms of sepsis Completed Monitor lower extremities for skin lesions and educate on proper foot care Problem:Diabetic Foot Care Goal:Manage diabetic foot care Completed patient instructed on diabetic foot care including daily skin inspection, wearing proper footwear/avoiding going barefoot, wash/dry feet thoroughly, applying moisturizer, avoiding between toes and toenail care. Instruct on fire safety and safe and effective use of oxygen in the home Problem:Oxygen Goal:Manage oxygen Completed patient instructed on: findings of safety risk assessment, causes of fires, firerisks for neighboring residences and buildings, precautions that can prevent fire-related injuries and oxygen safety as outlined in Home Care Patient Handbook patient demonstrate compliance with safety recommendations. Instruct on ongoing discharge plan Problem:Discharge Goal:Manage discharge planning Completed Ongoing Discharge plan: Discharge plan discussed with patient including frequency and duration for home SN and plan for transition to: caregiver assistance. Wound Care: Perform wound care (1) Description: Wound Care Order: Wound location: left inner thigh Wound type (etiology): Surgical Wound Order: Cleanse with Chlorahexadine or mild soap and water, rinse pat dry. apply lidocaine, pack with aquacell silver ag, cover with dry dressing Frequency: change every other day and as needed Wound care to be completed by patient except for scheduled SN wound care visits. Measure wound/incision at least weekly. Okay to substitute comparable products from home care formulary. Problem:SN Integumentary/Wounds Goal:Patient/Caregiver will have improved healing and be free of signs and symptoms of complications Completed Completed by SN. Patient did tolerate well. documented in this encounter [facility]'s home Plan of care note* Visit Details Visit Type -SN FAITH Discipline -Half-Way Problems Problem Description Start Date Status Goals Interve ntions Medication Education Disciplines: Skilled Services 08/20/2022 Active 1 goal linked to scheduled/documen pawan intervention 1 goal intervention scheduled/document ed in this visit Sepsis Disciplines: Skilled Services 08/20/2022 Active 1 goal linked to scheduled/documen pawan intervention 1 goal intervention scheduled/document ed in this visit Physician Specific Parameters Disciplines: Skilled Services 08/20/2022 Active 1 goal linked to scheduled/documen pawan intervention 1 goal intervention scheduled/document ed in this visit Risk for Falls Disciplines: Skilled Services 08/20/2022 Active 1 goal linked to scheduled/documen pawan intervention 1 goal intervention scheduled/document ed in this visit Pain Disciplines: Skilled Services 08/20/2022 Active 1 goal linked to scheduled/documen pawan intervention 1 goal intervention scheduled/document ed in this visit Diabetic Foot Care Disciplines: Skilled Services 08/20/2022 Active 1 goal linked to scheduled/documen pawan intervention 1 goal intervention scheduled/document ed in this visit Oxygen Disciplines: Skilled Services 08/20/2022 Active 1 goal linked to scheduled/documen pawan intervention 1 goal intervention scheduled/document ed in this visit High Risk Medications Disciplines: Skilled Services 08/20/2022 Active 1 goal linked to scheduled/documen pawan intervention 4 goal interventions scheduled/document ed in this visit Discharge Disciplines: Skilled Services 08/20/2022 Active 1 goal linked to scheduled/documen pawan intervention 1 goal intervention scheduled/document ed in this visit SN Edema Disciplines: SN 08/20/2022 Active 1 goal linked to scheduled/documen pawan intervention 1 goal intervention scheduled/document ed in this visit SN Diabetes Disciplines: SN 08/20/2022 Active 1 goal linked to scheduled/documen pawan intervention 1 goal intervention scheduled/document ed in this visit SN Cardiovascular Condition Disciplines: SN 08/20/2022 Active 1 goal linked to scheduled/documen pawan intervention 1 goal intervention scheduled/document ed in this visit SN Learning Assessment Disciplines: 08/20/2022 Active 1 goal linked to scheduled/documen pawan intervention 1 goal intervention scheduled/document ed in this visit SN COPD Disciplines: 09/22/2022 Active 1 goal linked to scheduled/documen pawan intervention 3 goal interventions scheduled/document ed in this visit SN Integumentary/Wound s Disciplines: 02/04/2023 Active 1 goal linked to scheduled/documen pawan intervention 2 goal interventions scheduled/document ed in this visit Recertification Disciplines: Skilled Services 02/13/2023 Active 1 goal linked to scheduled/documen pawan intervention 1 goal intervention scheduled/document ed in this visit Goals Goal Associated Problem Outcome Goal Met? Visit Notes Patient/caregiver will demonstrate ability to obtain, store, identify and administer ordered medications, keep accurate medication list in home, and adhere to medication schedule Description: Patient/caregiver will demonstrate ability to obtain, store, identify and administer ordered medications, keep accurate medication list in home, and adhere to medication schedule by 04-16-23. Medication Education No Patient/caregiver will be able to identify and report symptoms of sepsis Description: Patient/caregiver will be able to identify signs/symptoms of sepsis infection and will verbalize actions to take if suspected by 04-16-23. Sepsis No Patient to maintain parameters within physician-specified ranges throughout certification period Physician Specific Parameters No Manage Risk for falls Description: Patient/caregiver will verbalize knowledge of individualized fall prevention strategies by 04-16-23. Risk for Falls No Manage Pain Description: Patient/caregiver will verbalize knowledge and understanding of appropriate techniques to control pain, including pain medication and non-pharmacological techniques. Patient will verbalize or demonstrate an acceptable level of pain as evidenced by a pain score of 0-3/10 and improvement in ability to perform activities of daily living to be achieved by 04-16-23. Pain No Manage diabetic foot care Description: Patient/caregiver will demonstrate basic understanding of and compliance with diabetic self-care management as evidenced by verbalizing purpose of daily foot care and assessment by 04-16-23. Diabetic Foot Care No Manage oxygen Description: Patient/caregiver will use oxygen safely and effectively in home by verbalizing and demonstrating oxygen safety by 04-16-23. Oxygen No Patient/caregiver will teach back high risk medication side effect and precaution education High Risk Medications No Manage discharge planning Description: Patient/caregiver will verbalize understanding of ongoing discharge plan provided related to disease management, arrangements for outpatient and/or community services, obtaining medications, supplies, and DME, as needed throughout certification period. Discharge No Patient will have improved edema management Description: Patient/caregiver will demonstrate an understanding of edema management strategies as evidenced by resolution or stabilization of edema by 04-16-23. SN Edema No Improved management of diabetes Description: Improve diabetic management as evidenced by patient/caregiver able to teach back diabetic management strategies by 04-16-23. SN Diabetes No Improved management of cardiovascular disease Description: Improve patient/caregiver management of cardiac disease as evidenced by patient/caregiver ability to teach back cardiac management strategies by 04-16-23. SN Cardiovascular Condition No Demonstrate understanding of education Description: Patient and/or caregiver will verbalize understanding of educational instruction provided throughout certification period. SN Learning Assessment No Improved management of COPD Description: Improve COPD management as evidenced by decreased reports of dyspnea, medication compliance, and patient able to teach back strategies to manage condition. Goal to be achieved by 04-16-23 SN COPD No Patient/Caregiver will have improved healing and be free of signs and symptoms of complications Description: Patient/caregiver will verbalize management strategies to promote wound healing & prevent complications as evidenced by improved healing & no complications. SN Integumentary/Wounds No Ongoing review of POC and need for skilled services Recertification No Interventions Intervention Associated Problem/Goal Status Variance Visit Notes Medication Education Description: Evaluate/instruct patient/caregiver on obtaining, storing, identifying and administering ordered medications as well as keeping accurate medication list in the home and adhereing to medication schedule Problem:Medication Education Goal:Patient/caregive r will demonstrate ability to obtain, store, identify and administer ordered medications, keep accurate medication list in home, and adhere to medication schedule Completed Patient instructed on importance of keeping accurate medication list in home, adhering to medication schedule and proper storage of medications. Risk of Sepsis Description: Patient is at risk for sepsis. Monitor closely for s/s of sepsis. Problem:Sepsis Goal:Patient/caregive r will be able to identify and report symptoms of sepsis Completed SPO2 Description: Notify if pulse ox is <92% at rest. Problem:Physician Specific Parameters Goal:Patient to maintain parameters within physician-specified ranges throughout certification period Completed Instruct on individual fall risk factors and strategies to prevent falls and injuries caused by falls. Problem:Risk for Falls Goal:Manage Risk for falls Completed SN: Patient instructed on Eliminating Environmental Hazards: Keep pathways clear, Keep pets out of pathways, Keep rooms and walkways well lit, Wear supportive shoes or non-skid socks and Keep frequently used items within reach Instruct on pain and instruct on strategies to control pain Problem:Pain Goal:Manage Pain Completed patient instructed on techniques to control pain including Pharmacological measures and Non-Pharmacological measures; rest, positioning/elevation, mobility/therapeutic exercise, distraction, breathing/relaxation and use of DME/assistive devices. Monitor lower extremities for skin lesions and educate on proper foot care Problem:Diabetic Foot Care Goal:Manage diabetic foot care Completed patient instructed on diabetic foot care including daily skin inspection, wearing proper footwear/avoiding going barefoot, wash/dry feet thoroughly, applying moisturizer, avoiding between toes and toenail care. Instruct on fire safety and safe and effective use of oxygen in the home Problem:Oxygen Goal:Manage oxygen Completed patient instructed on: findings of safety risk assessment, causes of fires, firerisks for neighboring residences and buildings, precautions that can prevent fire-related injuries, oxygen safety as outlined in Home Care Patient Handbook and recommendations for specific safety risks identified in the home: maintenance of working smoke detectors and changing batteries, establishment of fire escape plan, telephone accessibility and implementation of no-smoking policy in home, including e-cigarettes and posting of No-Smoking signs on entrance doors patient demonstrate compliance with safety recommendations. Opioids- educated on high risk medication Problem:High Risk Medications Goal:Patient/caregive r will teach back high risk medication side effect and precaution education Completed patient educated on taking medication(s) as prescribed by provider. Do not stop medication or alter doses without speaking with your provider. Discuss medication effectiveness or side effect concerns with your provider and home care team. Only take opioids as prescribed, do not share your medications, and take proper precautions in storing and properly disposing of opioids once no longer needed. Possible side effects of opioid medication including sedation, decreased rate of breathing, and constipation. Report over sedation to prescribing provider and practice deep breathing techniques every hour while awake. Prevent constipation by increasing water and fiber intake, increasing activity as tolerated, and use stool softener(s) as prescribed. Hypoglycemic (including insulin)- educated on high risk medication Problem:High Risk Medications Goal:Patient/caregive r will teach back high risk medication side effect and precaution education Completed patient educated on taking medication(s) as prescribed by provider. Do not stop medication or skip/alter doses without speaking with your provider. Discuss medication effectiveness or side effect concerns with your provider and home care team. Check blood sugars and keep log as ordered by provider. Monitor for side effects of hypoglycemia such as increased weakness or shaking, moist skin, sweating, fast heartbeat, dizziness, sudden hunger, confusion, pale skin, numbness in mouth or tongue, irritability, nervousness, unsteadiness, nightmares, bad dreams, and restless sleep. Checking your blood sugar routinely and eating a consistent diabetic diet can help regulate blood sugars and reduce side effects. Antiplatelet- educated on high risk medication Problem:High Risk Medications Goal:Patient/caregive r will teach back high risk medication side effect and precaution education Completed patient educated on taking medication(s) as prescribed by provider. Do not stop medication or alter doses without speaking with your provider. Discuss medication effectiveness or side effect concerns with your provider and home care team. Discuss all medications you are taking, even dkhy-edn-egwguco medicines, with your provider and pharmacist since many drugs can interact with antiplatelet medications. If you forget to take a dose, DO NOT take a double dose. Take the missed dose as soon as possible on the same day. DO NOT take a double dose the next day to make up for the missed dose. Watch for signs of abnormal or excessive bleeding and bruising (refer to Bleeding Precautions education). Call your health care provider right away if you suspect something is wrong. Antibiotic- educated on high risk medication Problem:High Risk Medications Goal:Patient/caregive r will teach back high risk medication side effect and precaution education Completed patient educated on taking medication(s) as prescribed by provider. Do not stop medication or alter doses without speaking with your provider. Discuss medication effectiveness or side effect concerns with your provider and home care team. Take the full dispensed amount even if you start feeling better, as bacteria can become resistant to antibiotic treatment if you do not finish your prescription. Common side effects are upset stomach and diarrhea. Take your antibiotics with food unless otherwise indicated to help with indigestion. Taking an jwra-wbr-shtixbx probiotic or eating yogurt with live and active cultures three times a day can help prevent antibiotic-associated diarrhea. Call your provider immediately if you develop rashes or hives as this could be a delayed allergic reaction. Seek emergency treatment if you develop severe allergic reaction symptoms such as mouth or tongue swelling. Instruct on ongoing discharge plan Problem:Discharge Goal:Manage discharge planning Completed Ongoing Discharge plan: Discharge plan discussed with patient including frequency and duration for home SN and plan for transition to: caregiver assistance. Assess and instruct on measures to reduce edema Problem:SN Edema Goal:Patient will have improved edema management Completed patient instructed on elevation, compression, diet, medication compliance and benefits of activity. Instruct on diabetes disease process and management of chronic condition Description: Patient has needs for education of diabetes. Problem:SN Diabetes Goal:Improved management of diabetes Completed patient assessed and reinforced on diabetes disease process, diet education, how to carb count, recogonizing s/s of hypoglycemia and hyperglycemia and managing sick days as found in the diabetes self-care booklets. Instruct on cardiovascular disease process and management of condition Description: Patient has following cardiac diagnosis(es): CAD. Problem:SN Cardiovascular Condition Goal:Improved management of cardiovascular disease Completed patient instructed on cardiac disease process, self monitoring & symptom reporting and Cardiac Diet. Instruct and educate on knowledge deficits Problem:SN Learning Assessment Goal:Demonstrate understanding of education Completed patient verbalize and/or demonstrate understanding of nursing education completed today. Education methods include: verbal cues and teach back. Further education required to improve knowledge and compliance with depression/anxiety care management, diabetic care management, fall prevention/home safety strategies, incision/wound care management, integumentary care management, medication management, nutrition, orthopedic condition management, oxygen safety, pain management and pulmonary disease management. Maintenance COPD Description: Reinforce Acute and Sub-acute management education. Instruct on review zone sheet, nutrition in relation to COPD management, energy conservation, pacing activities, independence in ADLs vs what caregiver should be helping with, home exercise, additional COPD resources available like chronic care clinics as found in the COPD binder. Problem:SN COPD Goal:Improved management of COPD Completed Reinforced Acute and Sub-acute management education. patient reinforced on zone sheet, nutrition in relation to COPD management and energy conservation pacing activities, Romeo in ADLs vs what caregiver should be helping with and home exercise as found in the COPD binder. Sub-acute COPD Description: Reinforce Acute COPD management education. Instruct on zone sheet, methods to reduce infection risks, anxiety management including relaxation techniques, importance of sleep, stress reduction, and coping strategies for living with COPD as found in the COPD binder. Problem:SN COPD Goal:Improved management of COPD Completed Reinforced Acute COPD management education. patient reinforced on zone sheet, methods to reduce infection risks, anxiety management including: relaxation techniques, importance of sleep and stress reduction and coping strategies for living with COPD as found in the COPD binder. Acute COPD Description: Instruct on defintion of COPD, signs and symptoms of COPD exacerbation, use of zone sheet, use of MDIs, difference between rescue vs maintenance inhalers, use of nebulizer, smoking cessation, breathing management including pursed lip breathing, diaphragmatic breathing, positioning to reduce SOB, controlled coughing, use of incentive spirometer, and use of acapela as found in the COPD binder. Problem:SN COPD Goal:Improved management of COPD Completed patient reinforced on defintion of COPD, signs and symptoms of COPD exacerbation, difference between rescue vs maintenance inhalers, use of nebulizer, smoking cessation and breathing management: pursed lip breathing, diaphragmatic breathing and positioning to reduce SOB as found in the COPD binder. Instruct patient/caregiver healing process and management measures to promote healing and avoid complications Problem:SN Integumentary/Wounds Goal:Patient/Caregive r will have improved healing and be free of signs and symptoms of complications Completed patient instructed on the following: healing process, signs and symptoms of infection, importance of good nutrition, importance of managing blood sugars, smoking cessation and when to report symptoms. Instruct Patient/Caregiver on wound/incision care procedure as ordered by physician Problem:SN Integumentary/Wounds Goal:Patient/Caregive r will have improved healing and be free of signs and symptoms of complications Completed patient instructed on wound care as ordered by Physician. Continued need for Home Care Services Description: POC and certification renewed due to continuing [facility] needs. Problem:Recertificati on Goal:Ongoing review of POC and need for skilled services Completed documented in this encounter [facility]'s home Plan of care note* Visit Details Visit Type -OT EVAL Discipline -Occupational Therapy Problems Problem Description Start Date Status Goals Interve ntions Medication Education Disciplines: Skilled Services 08/20/2022 Active 1 goal linked to scheduled/documen pawan intervention 1 goal intervention scheduled/document ed in this visit Sepsis Disciplines: Skilled Services 08/20/2022 Active 1 goal linked to scheduled/documen pawan intervention 1 goal intervention scheduled/document ed in this visit Physician Specific Parameters Disciplines: Skilled Services 08/20/2022 Active 1 goal linked to scheduled/documen pawan intervention 1 goal intervention scheduled/document ed in this visit Risk for Falls Disciplines: Skilled Services 08/20/2022 Active 1 goal linked to scheduled/documen pawan intervention 1 goal intervention scheduled/document ed in this visit Pain Disciplines: Skilled Services 08/20/2022 Active 1 goal linked to scheduled/documen pawan intervention 1 goal intervention scheduled/document ed in this visit Diabetic Foot Care Disciplines: Skilled Services 08/20/2022 Active 1 goal linked to scheduled/documen pawan intervention 1 goal intervention scheduled/document ed in this visit Oxygen Disciplines: Skilled Services 08/20/2022 Active 1 goal linked to scheduled/documen pawan intervention 1 goal intervention scheduled/document ed in this visit Discharge Disciplines: Skilled Services 08/20/2022 Active 1 goal linked to scheduled/documen pawan intervention 1 goal intervention scheduled/document ed in this visit OT Referral Disciplines: Skilled Services 03/30/2023 Resolved on 04/01/2023 1 goal linked to scheduled/documen pawan intervention 1 goal intervention scheduled/document ed in this visit OT Learning Assessment Disciplines: OT 04/01/2023 Active 1 goal linked to scheduled/documen pawan intervention 1 goal intervention scheduled/document ed in this visit OT Aerobic Capacity for Functional Activity Disciplines: OT 04/01/2023 Active 1 goal linked to scheduled/documen pawan intervention 1 goal intervention scheduled/document ed in this visit OT Functional Transfers Disciplines: OT 04/01/2023 Active 1 goal linked to scheduled/documen pawan intervention 1 goal intervention scheduled/document ed in this visit Goals Goal Associated Problem Outcome Goal Met? Visit Notes Patient/caregiver will demonstrate ability to obtain, store, identify and administer ordered medications, keep accurate medication list in home, and adhere to medication schedule Description: Patient/caregiver will demonstrate ability to obtain, store, identify and administer ordered medications, keep accurate medication list in home, and adhere to medication schedule by 04-16-23. Medication Education No Patient/caregiver will be able to identify and report symptoms of sepsis Description: Patient/caregiver will be able to identify signs/symptoms of sepsis infection and will verbalize actions to take if suspected by 04-16-23. Sepsis No Patient to maintain parameters within physician-specified ranges throughout certification period Physician Specific Parameters No Manage Risk for falls Description: Patient/caregiver will verbalize knowledge of individualized fall prevention strategies by 04-16-23. Risk for Falls No Manage Pain Description: Patient/caregiver will verbalize knowledge and understanding of appropriate techniques to control pain, including pain medication and non-pharmacological techniques. Patient will verbalize or demonstrate an acceptable level of pain as evidenced by a pain score of 0-3/10 and improvement in ability to perform activities of daily living to be achieved by 04-16-23. Pain No Manage diabetic foot care Description: Patient/caregiver will demonstrate basic understanding of and compliance with diabetic self-care management as evidenced by verbalizing purpose of daily foot care and assessment by 04-16-23. Diabetic Foot Care No Manage oxygen Description: Patient/caregiver will use oxygen safely and effectively in home by verbalizing and demonstrating oxygen safety by 04-16-23. Oxygen No Manage discharge planning Description: Patient/caregiver will verbalize understanding of ongoing discharge plan provided related to disease management, arrangements for outpatient and/or community services, obtaining medications, supplies, and DME, as needed throughout certification period. Discharge No Patient will be referred to additional discipline as needed OT Referral Completed Yes goal met Demonstrate understanding of education Description: Patient and/or caregiver will understand educational instruction to be achieved by 04/25/23 OT Learning Assessment No Improved Aerobic Capacity Description: Patient will demonstrate improved aerobic capacity to meet functional goals as evidenced by Rate of Perceived Exertion (RPE) 5 /10 during ADL/IADL to be achieved by 04/25/23. OT Aerobic Capacity for Functional Activity No Improved Functional Transfers Description: patient will demonstrate safe transfers to/from toilet and shower/tub with independent assistance and no verbal cues with use of DME to be achieved by 04/18/23. OT Functional Transfers No Interventions Intervention Associated Problem/Goal Status Variance Visit Notes Medication Education Description: Evaluate/instruct patient/caregiver on obtaining, storing, identifying and administering ordered medications as well as keeping accurate medication list in the home and adhereing to medication schedule Problem:Medication Education Goal:Patient/caregive r will demonstrate ability to obtain, store, identify and administer ordered medications, keep accurate medication list in home, and adhere to medication schedule Completed Patient instructed on importance of keeping accurate medication list in home and adhering to medication schedule. Risk of Sepsis Description: Patient is at risk for sepsis. Monitor closely for s/s of sepsis. Problem:Sepsis Goal:Patient/caregive r will be able to identify and report symptoms of sepsis Completed SPO2 Description: Notify if pulse ox is <92% at rest. Problem:Physician Specific Parameters Goal:Patient to maintain parameters within physician-specified ranges throughout certification period Completed Instruct on individual fall risk factors and strategies to prevent falls and injuries caused by falls. Problem:Risk for Falls Goal:Manage Risk for falls Completed OT: Patient instructed on Eliminating Environmental Hazards: Keep pathways clear, Keep pets out of pathways, Wear supportive shoes or non-skid socks and Keep frequently used items within reach Instruct on pain and instruct on strategies to control pain Problem:Pain Goal:Manage Pain Completed patient instructed on techniques to control pain including Pharmacological measures and Non-Pharmacological measures; positioning/elevation and use of thermal modalities, apply ice to affected area for the following prescribed frequency: prn for pain. 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 Instruct on fire safety and safe and effective use of oxygen in the home Problem:Oxygen Goal:Manage oxygen Completed patient instructed on: findings of safety risk assessment, causes of fires, oxygen safety as outlined in Home Care Patient Handbook and recommendations for specific safety risks identified in the home: how to obtain fire extinguisher, safe food preparation practices while using oxygen, discontinue use of aerosol sprays and items containing oil, grease, or petroleum near oxygen and removal of burning candles and smoking materials patient demonstrate compliance with safety recommendations. Instruct on ongoing discharge plan Problem:Discharge Goal:Manage discharge planning Completed Ongoing Discharge plan: Discharge plan discussed with patient including frequency and duration for home OT and plan for transition to: live independently at home without ongoing services. OT evaluation and treatment Description: Evaluate and treat for the assessment of functional deficits and establishment of appropriate interventions and education to address: I/ADL training, functional transfers, DME/adaptive equipment recommendations, safety awareness, energy conservation and home safety and falls prevention recommendations. Problem:OT Referral Goal:Patient will be referred to additional discipline as needed Completed Instruct and educate on knowledge deficits Problem:OT Learning Assessment Goal:Demonstrate understanding of education Completed Education methods include: verbal cues. Patient/Caregiver require further education to improve knowledge and compliance with fall prevention strategies, oxygen safety, pain management, pulmonary disease management, functional adl/iadl activity, functional transfers, endurance training and discharge planning. Aerobic Capacity Training Problem:OT Aerobic Capacity for Functional Activity Goal:Improved Aerobic Capacity Completed Instruct patient on energy conservation techniques and breathing strategies with verbal cues. Encouraged hourly ambulation and positional changes to promote increased activity tolerance. Transfer Training Problem:OT Functional Transfers Goal:Improved Functional Transfers Completed Instruct patient on safe transfers and proper techniques including slow positional changes, use of grab bar in shower to perform to and from toilet and shower/tub with CGA to SBA depending on pain level and SOB assistance and verbal cues for safety and technqiue. documented in this encounter [facility]'s home Plan of care note* Visit Details Visit Type -SN ROUTINE Discipline -Half-Way Problems Problem Description Start Date Status Goals Interve ntions Medication Education Disciplines: Skilled Services 08/20/2022 Active 1 goal linked to scheduled/document ed intervention 1 goal intervention scheduled/documente d in this visit Sepsis Disciplines: Skilled Services 08/20/2022 Active 1 goal linked to scheduled/document ed intervention 1 goal intervention scheduled/documente d in this visit Physician Specific Parameters Disciplines: Skilled Services 08/20/2022 Active 1 goal linked to scheduled/document ed intervention 1 goal intervention scheduled/documente d in this visit Risk for Falls Disciplines: Skilled Services 08/20/2022 Active 1 goal linked to scheduled/document ed intervention 1 goal intervention scheduled/documente d in this visit Pain Disciplines: Skilled Services 08/20/2022 Active 1 goal linked to scheduled/document ed intervention 1 goal intervention scheduled/documente d in this visit Diabetic Foot Care Disciplines: Skilled Services 08/20/2022 Active 1 goal linked to scheduled/document ed intervention 1 goal intervention scheduled/documente d in this visit Oxygen Disciplines: Skilled Services 08/20/2022 Active 1 goal linked to scheduled/document ed intervention 1 goal intervention scheduled/documente d in this visit High Risk Medications Disciplines: Skilled Services 08/20/2022 Active 1 goal linked to scheduled/document ed intervention 4 goal interventions scheduled/documente d in this visit Discharge Disciplines: Skilled Services 08/20/2022 Active 1 goal linked to scheduled/document ed intervention 1 goal intervention scheduled/documente d in this visit SN Diabetes Disciplines: SN 08/20/2022 Active 1 goal linked to scheduled/document ed intervention 1 goal intervention scheduled/documente d in this visit SN COPD Disciplines: SN 09/22/2022 Active 1 goal linked to scheduled/document ed intervention 1 goal intervention scheduled/documente d in this visit SN Integumentary/W ounds Disciplines: SN 02/04/2023 Active 1 goal linked to scheduled/document ed intervention 2 goal interventions scheduled/documente d in this visit Recertification Disciplines: Skilled Services 02/13/2023 Active 1 goal linked to scheduled/document ed intervention 1 goal intervention scheduled/documente d in this visit Goals Goal Associated Problem Outcome Goal Met? Visit Notes Patient/caregiver will demonstrate ability to obtain, store, identify and administer ordered medications, keep accurate medication list in home, and adhere to medication schedule Description: Patient/caregiver will demonstrate ability to obtain, store, identify and administer ordered medications, keep accurate medication list in home, and adhere to medication schedule by 04-16-23. Medication Education No Patient/caregiver will be able to identify and report symptoms of sepsis Description: Patient/caregiver will be able to identify signs/symptoms of sepsis infection and will verbalize actions to take if suspected by 04-16-23. Sepsis No Patient to maintain parameters within physician-specified ranges throughout certification period Physician Specific Parameters No Manage Risk for falls Description: Patient/caregiver will verbalize knowledge of individualized fall prevention strategies by 04-16-23. Risk for Falls No Manage Pain Description: Patient/caregiver will verbalize knowledge and understanding of appropriate techniques to control pain, including pain medication and non-pharmacological techniques. Patient will verbalize or demonstrate an acceptable level of pain as evidenced by a pain score of 0-3/10 and improvement in ability to perform activities of daily living to be achieved by 04-16-23. Pain No Manage diabetic foot care Description: Patient/caregiver will demonstrate basic understanding of and compliance with diabetic self-care management as evidenced by verbalizing purpose of daily foot care and assessment by 04-16-23. Diabetic Foot Care No Manage oxygen Description: Patient/caregiver will use oxygen safely and effectively in home by verbalizing and demonstrating oxygen safety by 04-16-23. Oxygen No Patient/caregiver will teach back high risk medication side effect and precaution education High Risk Medications No Manage discharge planning Description: Patient/caregiver will verbalize understanding of ongoing discharge plan provided related to disease management, arrangements for outpatient and/or community services, obtaining medications, supplies, and DME, as needed throughout certification period. Discharge No Improved management of diabetes Description: Improve diabetic management as evidenced by patient/caregiver able to teach back diabetic management strategies by 04-16-23. SN Diabetes No Improved management of COPD Description: Improve COPD management as evidenced by decreased reports of dyspnea, medication compliance, and patient able to teach back strategies to manage condition. Goal to be achieved by 04-16-23 SN COPD No Patient/Caregiver will have improved healing and be free of signs and symptoms of complications Description: Patient/caregiver will verbalize management strategies to promote wound healing & prevent complications as evidenced by improved healing & no complications. SN Integumentary/Wounds No Ongoing review of POC and need for skilled services Recertification No Interventions Intervention Associated Problem/Goal Status Variance Visit Notes Medication Education Description: Evaluate/instruct patient/caregiver on obtaining, storing, identifying and administering ordered medications as well as keeping accurate medication list in the home and adhereing to medication schedule Problem:Medication Education Goal:Patient/caregiv er will demonstrate ability to obtain, store, identify and administer ordered medications, keep accurate medication list in home, and adhere to medication schedule Completed Patient instructed on importance of keeping accurate medication list in home, adhering to medication schedule and proper storage of medications. Risk of Sepsis Description: Patient is at risk for sepsis. Monitor closely for s/s of sepsis. Problem:Sepsis Goal:Patient/caregiv er will be able to identify and report symptoms of sepsis Completed SPO2 Description: Notify if pulse ox is <92% at rest. Problem:Physician Specific Parameters Goal:Patient to maintain parameters within physician-specified ranges throughout certification period Completed Instruct on individual fall risk factors and strategies to prevent falls and injuries caused by falls. Problem:Risk for Falls Goal:Manage Risk for falls Completed SN: Patient instructed on Eliminating Environmental Hazards: Keep pathways clear, Keep pets out of pathways, Keep rooms and walkways well lit, Wear supportive shoes or non-skid socks and Keep frequently used items within reach Instruct on pain and instruct on strategies to control pain Problem:Pain Goal:Manage Pain Completed patient instructed on techniques to control pain including Pharmacological measures and Non-Pharmacological measures; rest, positioning/elevation, mobility/therapeutic exercise, distraction, breathing/relaxation and use of DME/assistive devices. Monitor lower extremities for skin lesions and educate on proper foot care Problem:Diabetic Foot Care Goal:Manage diabetic foot care Completed patient instructed on diabetic foot care including daily skin inspection, wearing proper footwear/avoiding going barefoot, wash/dry feet thoroughly, applying moisturizer, avoiding between toes and toenail care. Instruct on fire safety and safe and effective use of oxygen in the home Problem:Oxygen Goal:Manage oxygen Completed patient instructed on: findings of safety risk assessment, causes of fires, firerisks for neighboring residences and buildings, precautions that can prevent fire-related injuries, oxygen safety as outlined in Home Care Patient Handbook and recommendations for specific safety risks identified in the home: maintenance of working smoke detectors and changing batteries, establishment of fire escape plan, telephone accessibility and implementation of no-smoking policy in home, including e-cigarettes and posting of No-Smoking signs on entrance doors patient demonstrate compliance with safety recommendations. Opioids- educated on high risk medication Problem:High Risk Medications Goal:Patient/caregiv er will teach back high risk medication side effect and precaution education Completed patient educated on taking medication(s) as prescribed by provider. Do not stop medication or alter doses without speaking with your provider. Discuss medication effectiveness or side effect concerns with your provider and home care team. Only take opioids as prescribed, do not share your medications, and take proper precautions in storing and properly disposing of opioids once no longer needed. Possible side effects of opioid medication including sedation, decreased rate of breathing, and constipation. Report over sedation to prescribing provider and practice deep breathing techniques every hour while awake. Prevent constipation by increasing water and fiber intake, increasing activity as tolerated, and use stool softener(s) as prescribed. Hypoglycemic (including insulin)- educated on high risk medication Problem:High Risk Medications Goal:Patient/caregiv er will teach back high risk medication side effect and precaution education Completed patient educated on taking medication(s) as prescribed by provider. Do not stop medication or skip/alter doses without speaking with your provider. Discuss medication effectiveness or side effect concerns with your provider and home care team. Check blood sugars and keep log as ordered by provider. Monitor for side effects of hypoglycemia such as increased weakness or shaking, moist skin, sweating, fast heartbeat, dizziness, sudden hunger, confusion, pale skin, numbness in mouth or tongue, irritability, nervousness, unsteadiness, nightmares, bad dreams, and restless sleep. Checking your blood sugar routinely and eating a consistent diabetic diet can help regulate blood sugars and reduce side effects. Antiplatelet- educated on high risk medication Problem:High Risk Medications Goal:Patient/caregiv er will teach back high risk medication side effect and precaution education Completed patient educated on taking medication(s) as prescribed by provider. Do not stop medication or alter doses without speaking with your provider. Discuss medication effectiveness or side effect concerns with your provider and home care team. Discuss all medications you are taking, even [id number] medicines, with your provider and pharmacist since many drugs can interact with antiplatelet medications. If you forget to take a dose, DO NOT take a double dose. Take the missed dose as soon as possible on the same day. DO NOT take a double dose the next day to make up for the missed dose. Watch for signs of abnormal or excessive bleeding and bruising (refer to Bleeding Precautions education). Call your health care provider right away if you suspect something is wrong. Antibiotic- educated on high risk medication Problem:High Risk Medications Goal:Patient/caregiv er will teach back high risk medication side effect and precaution education Completed patient educated on taking medication(s) as prescribed by provider. Do not stop medication or alter doses without speaking with your provider. Discuss medication effectiveness or side effect concerns with your provider and home care team. Take the full dispensed amount even if you start feeling better, as bacteria can become resistant to antibiotic treatment if you do not finish your prescription. Common side effects are upset stomach and diarrhea. Take your antibiotics with food unless otherwise indicated to help with indigestion. Taking an dfkr-ife-iylcehd probiotic or eating yogurt with live and active cultures three times a day can help prevent antibiotic-associated diarrhea. Call your provider immediately if you develop rashes or hives as this could be a delayed allergic reaction. Seek emergency treatment if you develop severe allergic reaction symptoms such as mouth or tongue swelling. Instruct on ongoing discharge plan Problem:Discharge Goal:Manage discharge planning Completed Ongoing Discharge plan: Discharge plan discussed with patient including frequency and duration for home SN and plan for transition to: caregiver assistance. Instruct on diabetes disease process and management of chronic condition Description: Patient has needs for education of diabetes. Problem:SN Diabetes Goal:Improved management of diabetes Completed patient assessed and reinforced on diabetes disease process, diet education, how to carb count and recogonizing s/s of hypoglycemia and hyperglycemia as found in the diabetes self-care booklets. Maintenance COPD Description: Reinforce Acute and Sub-acute management education. Instruct on review zone sheet, nutrition in relation to COPD management, energy conservation, pacing activities, independence in ADLs vs what caregiver should be helping with, home exercise, additional COPD resources available like chronic care clinics as found in the COPD binder. Problem:SN COPD Goal:Improved management of COPD Completed Reinforced Acute and Sub-acute management education. patient reinforced on zone sheet, nutrition in relation to COPD management and energy conservation pacing activities, Romeo in ADLs vs what caregiver should be helping with and home exercise as found in the COPD binder. Wound Care: Peform wound care (3) Description: Wound Care Order: Wound location: scrotum Wound type (etiology): Traumatic Order: Cleanse with Chlorahexadine or mild soap and water, rinse pat dry. apply lidocaine, apply protective barrier cream cover with dry dressing Frequency: daily and as needed for soiled Wound care to be completed by patient except for scheduled SN wound care visits. Measure wound/incision at least weekly. Okay to substitute comparable products from home care formulary. Problem:SN Integumentary/Wounds Goal:Patient/Caregiv er will have improved healing and be free of signs and symptoms of complications Completed Completed by SN. Patient did tolerate well. Instruct patient/caregiver healing process and management measures to promote healing and avoid complications Problem:SN Integumentary/Wounds Goal:Patient/Caregiv er will have improved healing and be free of signs and symptoms of complications Completed patient instructed on the following: healing process, signs and symptoms of infection, importance of good nutrition, importance of managing blood sugars, smoking cessation and when to report symptoms. Continued need for Home Care Services Description: POC and certification renewed due to continuing [facility] needs. Problem:Recertificat ion Goal:Ongoing review of POC and need for skilled services Com[facility] Visit Details Visit Type -SN ROUTINE Discipline -Half-Way Problems Problem Description Start Date Status Goals Interve ntions Medication Education Disciplines: Skilled Services 08/20/2022 Active 1 goal linked to scheduled/documen pawan intervention 1 goal intervention scheduled/document ed in this visit Sepsis Disciplines: Skilled Services 08/20/2022 Active 1 goal linked to scheduled/documen pawan intervention 1 goal intervention scheduled/document ed in this visit Physician Specific Parameters Disciplines: Skilled Services 08/20/2022 Active 1 goal linked to scheduled/documen pawan intervention 1 goal intervention scheduled/document ed in this visit Risk for Falls Disciplines: Skilled Services 08/20/2022 Active 1 goal linked to scheduled/documen pawan intervention 1 goal intervention scheduled/document ed in this visit Pain Disciplines: Skilled Services 08/20/2022 Active 1 goal linked to scheduled/documen pawan intervention 1 goal intervention scheduled/document ed in this visit Diabetic Foot Care Disciplines: Skilled Services 08/20/2022 Active 1 goal linked to scheduled/documen pawan intervention 1 goal intervention scheduled/document ed in this visit Oxygen Disciplines: Skilled Services 08/20/2022 Active 1 goal linked to scheduled/documen pawan intervention 1 goal intervention scheduled/document ed in this visit High Risk Medications Disciplines: Skilled Services 08/20/2022 Active 1 goal linked to scheduled/documen pawan intervention 4 goal interventions scheduled/document ed in this visit Discharge Disciplines: Skilled Services 08/20/2022 Active 1 goal linked to scheduled/documen pawan intervention 1 goal intervention scheduled/document ed in this visit SN Edema Disciplines: SN 08/20/2022 Active 1 goal linked to scheduled/documen pawan intervention 1 goal intervention scheduled/document ed in this visit SN Diabetes Disciplines: SN 08/20/2022 Active 1 goal linked to scheduled/documen pawan intervention 1 goal intervention scheduled/document ed in this visit SN Cardiovascular Condition Disciplines: SN 08/20/2022 Active 1 goal linked to scheduled/documen pawan intervention 1 goal intervention scheduled/document ed in this visit SN Learning Assessment Disciplines: SN 08/20/2022 Active 1 goal linked to scheduled/documen pawan intervention 1 goal intervention scheduled/document ed in this visit SN COPD Disciplines: SN 09/22/2022 Active 1 goal linked to scheduled/documen pawan intervention 1 goal intervention scheduled/document ed in this visit SN Integumentary/Wound s Disciplines: SN 02/04/2023 Active 1 goal linked to scheduled/documen pawan intervention 3 goal interventions scheduled/document ed in this visit Recertification Disciplines: Skilled Services 02/13/2023 Active 1 goal linked to scheduled/documen pawan intervention 1 goal intervention scheduled/document ed in this visit Goals Goal Associated Problem Outcome Goal Met? Visit Notes Patient/caregiver will demonstrate ability to obtain, store, identify and administer ordered medications, keep accurate medication list in home, and adhere to medication schedule Description: Patient/caregiver will demonstrate ability to obtain, store, identify and administer ordered medications, keep accurate medication list in home, and adhere to medication schedule by 04-16-23. Medication Education No Patient/caregiver will be able to identify and report symptoms of sepsis Description: Patient/caregiver will be able to identify signs/symptoms of sepsis infection and will verbalize actions to take if suspected by 04-16-23. Sepsis No Patient to maintain parameters within physician-specified ranges throughout certification period Physician Specific Parameters No Manage Risk for falls Description: Patient/caregiver will verbalize knowledge of individualized fall prevention strategies by 04-16-23. Risk for Falls No Manage Pain Description: Patient/caregiver will verbalize knowledge and understanding of appropriate techniques to control pain, including pain medication and non-pharmacological techniques. Patient will verbalize or demonstrate an acceptable level of pain as evidenced by a pain score of 0-3/10 and improvement in ability to perform activities of daily living to be achieved by 04-16-23. Pain No Manage diabetic foot care Description: Patient/caregiver will demonstrate basic understanding of and compliance with diabetic self-care management as evidenced by verbalizing purpose of daily foot care and assessment by 04-16-23. Diabetic Foot Care No Manage oxygen Description: Patient/caregiver will use oxygen safely and effectively in home by verbalizing and demonstrating oxygen safety by 04-16-23. Oxygen No Patient/caregiver will teach back high risk medication side effect and precaution education High Risk Medications No Manage discharge planning Description: Patient/caregiver will verbalize understanding of ongoing discharge plan provided related to disease management, arrangements for outpatient and/or community services, obtaining medications, supplies, and DME, as needed throughout certification period. Discharge No Patient will have improved edema management Description: Patient/caregiver will demonstrate an understanding of edema management strategies as evidenced by resolution or stabilization of edema by 04-16-23. SN Edema No Improved management of diabetes Description: Improve diabetic management as evidenced by patient/caregiver able to teach back diabetic management strategies by 04-16-23. SN Diabetes No Improved management of cardiovascular disease Description: Improve patient/caregiver management of cardiac disease as evidenced by patient/caregiver ability to teach back cardiac management strategies by 04-16-23. SN Cardiovascular Condition No Demonstrate understanding of education Description: Patient and/or caregiver will verbalize understanding of educational instruction provided throughout certification period. SN Learning Assessment No Improved management of COPD Description: Improve COPD management as evidenced by decreased reports of dyspnea, medication compliance, and patient able to teach back strategies to manage condition. Goal to be achieved by 04-16-23 SN COPD No Patient/Caregiver will have improved healing and be free of signs and symptoms of complications Description: Patient/caregiver will verbalize management strategies to promote wound healing & prevent complications as evidenced by improved healing & no complications. SN Integumentary/Wounds No Ongoing review of POC and need for skilled services Recertification No Interventions Intervention Associated Problem/Goal Status Variance Visit Notes Medication Education Description: Evaluate/instruct patient/caregiver on obtaining, storing, identifying and administering ordered medications as well as keeping accurate medication list in the home and adhereing to medication schedule Problem:Medication Education Goal:Patient/caregive r will demonstrate ability to obtain, store, identify and administer ordered medications, keep accurate medication list in home, and adhere to medication schedule Completed Patient instructed on importance of keeping accurate medication list in home, adhering to medication schedule and proper storage of medications. Risk of Sepsis Description: Patient is at risk for sepsis. Monitor closely for s/s of sepsis. Problem:Sepsis Goal:Patient/caregive r will be able to identify and report symptoms of sepsis Completed SPO2 Description: Notify if pulse ox is <92% at rest. Problem:Physician Specific Parameters Goal:Patient to maintain parameters within physician-specified ranges throughout certification period Completed Instruct on individual fall risk factors and strategies to prevent falls and injuries caused by falls. Problem:Risk for Falls Goal:Manage Risk for falls Completed SN: Patient instructed on Eliminating Environmental Hazards: Keep pathways clear, Keep pets out of pathways, Keep rooms and walkways well lit, Wear supportive shoes or non-skid socks and Keep frequently used items within reach Instruct on pain and instruct on strategies to control pain Problem:Pain Goal:Manage Pain Completed patient instructed on techniques to control pain including Pharmacological measures and Non-Pharmacological measures; rest, positioning/elevation, mobility/therapeutic exercise, distraction and breathing/relaxation. Monitor lower extremities for skin lesions and educate on proper foot care Problem:Diabetic Foot Care Goal:Manage diabetic foot care Completed patient instructed on diabetic foot care including daily skin inspection, wearing proper footwear/avoiding going barefoot, wash/dry feet thoroughly, applying moisturizer, avoiding between toes and toenail care. Instruct on fire safety and safe and effective use of oxygen in the home Problem:Oxygen Goal:Manage oxygen Completed patient instructed on: findings of safety risk assessment, causes of fires, firerisks for neighboring residences and buildings, precautions that can prevent fire-related injuries, oxygen safety as outlined in Home Care Patient Handbook and recommendations for specific safety risks identified in the home: maintenance of working smoke detectors and changing batteries, establishment of fire escape plan, telephone accessibility and implementation of no-smoking policy in home, including e-cigarettes and posting of No-Smoking signs on entrance doors patient demonstrate compliance with safety recommendations. Opioids- educated on high risk medication Problem:High Risk Medications Goal:Patient/caregive r will teach back high risk medication side effect and precaution education Completed patient educated on taking medication(s) as prescribed by provider. Do not stop medication or alter doses without speaking with your provider. Discuss medication effectiveness or side effect concerns with your provider and home care team. Only take opioids as prescribed, do not share your medications, and take proper precautions in storing and properly disposing of opioids once no longer needed. Possible side effects of opioid medication including sedation, decreased rate of breathing, and constipation. Report over sedation to prescribing provider and practice deep breathing techniques every hour while awake. Prevent constipation by increasing water and fiber intake, increasing activity as tolerated, and use stool softener(s) as prescribed. Hypoglycemic (including insulin)- educated on high risk medication Problem:High Risk Medications Goal:Patient/caregive r will teach back high risk medication side effect and precaution education Completed patient educated on taking medication(s) as prescribed by provider. Do not stop medication or skip/alter doses without speaking with your provider. Discuss medication effectiveness or side effect concerns with your provider and home care team. Check blood sugars and keep log as ordered by provider. Monitor for side effects of hypoglycemia such as increased weakness or shaking, moist skin, sweating, fast heartbeat, dizziness, sudden hunger, confusion, pale skin, numbness in mouth or tongue, irritability, nervousness, unsteadiness, nightmares, bad dreams, and restless sleep. Checking your blood sugar routinely and eating a consistent diabetic diet can help regulate blood sugars and reduce side effects. Antiplatelet- educated on high risk medication Problem:High Risk Medications Goal:Patient/caregive r will teach back high risk medication side effect and precaution education Completed patient educated on taking medication(s) as prescribed by provider. Do not stop medication or alter doses without speaking with your provider. Discuss medication effectiveness or side effect concerns with your provider and home care team. Discuss all medications you are taking, even xrgm-[id number] medicines, with your provider and pharmacist since many drugs can interact with antiplatelet medications. If you forget to take a dose, DO NOT take a double dose. Take the missed dose as soon as possible on the same day. DO NOT take a double dose the next day to make up for the missed dose. Watch for signs of abnormal or excessive bleeding and bruising (refer to Bleeding Precautions education). Call your health care provider right away if you suspect something is wrong. Antibiotic- educated on high risk medication Problem:High Risk Medications Goal:Patient/caregive r will teach back high risk medication side effect and precaution education Completed patient educated on taking medication(s) as prescribed by provider. Do not stop medication or alter doses without speaking with your provider. Discuss medication effectiveness or side effect concerns with your provider and home care team. Take the full dispensed amount even if you start feeling better, as bacteria can become resistant to antibiotic treatment if you do not finish your prescription. Common side effects are upset stomach and diarrhea. Take your antibiotics with food unless otherwise indicated to help with indigestion. Taking an rsbj-ibp-btvnpof probiotic or eating yogurt with live and active cultures three times a day can help prevent antibiotic-associated diarrhea. Call your provider immediately if you develop rashes or hives as this could be a delayed allergic reaction. Seek emergency treatment if you develop severe allergic reaction symptoms such as mouth or tongue swelling. Instruct on ongoing discharge plan Problem:Discharge Goal:Manage discharge planning Completed Ongoing Discharge plan: Discharge plan discussed with patient including frequency and duration for home SN and plan for transition to: caregiver assistance. Assess and instruct on measures to reduce edema Problem:SN Edema Goal:Patient will have improved edema management Completed patient instructed on elevation, compression, diet, medication compliance and benefits of activity. Instruct on diabetes disease process and management of chronic condition Description: Patient has needs for education of diabetes. Problem:SN Diabetes Goal:Improved management of diabetes Completed patient assessed and reinforced on diabetes disease process, diet education, how to carb count and recogonizing s/s of hypoglycemia and hyperglycemia as found in the diabetes self-care booklets. Instruct on cardiovascular disease process and management of condition Description: Patient has following cardiac diagnosis(es): CAD. Problem:SN Cardiovascular Condition Goal:Improved management of cardiovascular disease Completed patient instructed on cardiac disease process, self monitoring & symptom reporting and Cardiac Diet. Instruct and educate on knowledge deficits Problem:SN Learning Assessment Goal:Demonstrate understanding of education Completed patient and caregiver verbalize and/or demonstrate understanding of nursing education completed today. Education methods include: verbal cues. Further education required to improve knowledge and compliance with cardiac disease management, diabetic care management, fall prevention/home safety strategies and incision/wound care management. Maintenance COPD Description: Reinforce Acute and Sub-acute management education. Instruct on review zone sheet, nutrition in relation to COPD management, energy conservation, pacing activities, independence in ADLs vs what caregiver should be helping with, home exercise, additional COPD resources available like chronic care clinics as found in the COPD binder. Problem:SN COPD Goal:Improved management of COPD Completed Reinforced Acute and Sub-acute management education. patient reinforced on zone sheet, nutrition in relation to COPD management and energy conservation pacing activities, Romeo in ADLs vs what caregiver should be helping with and home exercise as found in the COPD binder. Wound Care: Peform wound care (3) Description: Wound Care Order: Wound location: scrotum Wound type (etiology): Traumatic Order: Cleanse with Chlorahexadine or mild soap and water, rinse pat dry. apply lidocaine, apply protective barrier cream cover with dry dressing Frequency: daily and as needed for soiled Wound care to be completed by patient except for scheduled SN wound care visits. Measure wound/incision at least weekly. Okay to substitute comparable products from home care formulary. Problem:SN Integumentary/Wounds Goal:Patient/Caregive r will have improved healing and be free of signs and symptoms of complications Completed Completed by SN. Patient did tolerate well. Instruct patient/caregiver healing process and management measures to promote healing and avoid complications Problem:SN Integumentary/Wounds Goal:Patient/Caregive r will have improved healing and be free of signs and symptoms of complications Completed patient instructed on the following: healing process, signs and symptoms of infection, importance of good nutrition, importance of managing blood sugars, smoking cessation and when to report symptoms. Instruct Patient/Caregiver on wound/incision care procedure as ordered by physician Problem:SN Integumentary/Wounds Goal:Patient/Caregive r will have improved healing and be free of signs and symptoms of complications Completed patient instructed on and return demonstrated wound care as ordered by Physician. Continued need for Home Care Services Description: POC and certification renewed due to continuing [facility] needs. Problem:Recertificati on Goal:Ongoing review of POC and need for skilled services Com[facility] Visit Details Visit Type -ARREDONDO ROUTINE Discipline -Occupational Therapy Problems Problem Description Start Date Status Goals Interve ntions Medication Education Disciplines: Skilled Services 08/20/2022 Active 1 goal linked to scheduled/document ed intervention 1 goal intervention scheduled/documente d in this visit Sepsis Disciplines: Skilled Services 08/20/2022 Active 1 goal linked to scheduled/document ed intervention 1 goal intervention scheduled/documente d in this visit Physician Specific Parameters Disciplines: Skilled Services 08/20/2022 Active 1 goal linked to scheduled/document ed intervention 1 goal intervention scheduled/documente d in this visit Risk for Falls Disciplines: Skilled Services 08/20/2022 Active 1 goal linked to scheduled/document ed intervention 1 goal intervention scheduled/documente d in this visit Pain Disciplines: Skilled Services 08/20/2022 Active 1 goal linked to scheduled/document ed intervention 1 goal intervention scheduled/documente d in this visit Diabetic Foot Care Disciplines: Skilled Services 08/20/2022 Active 1 goal linked to scheduled/document ed intervention 1 goal intervention scheduled/documente d in this visit Oxygen Disciplines: Skilled Services 08/20/2022 Active 1 goal linked to scheduled/document ed intervention 1 goal intervention scheduled/documente d in this visit High Risk Medications Disciplines: Skilled Services 08/20/2022 Active 1 goal linked to scheduled/document ed intervention 1 goal intervention scheduled/documente d in this visit Discharge Disciplines: Skilled Services 08/20/2022 Active 1 goal linked to scheduled/document ed intervention 1 goal intervention scheduled/documente d in this visit OT Learning Assessment Disciplines: OT 04/01/2023 Active 1 goal linked to scheduled/document ed intervention 1 goal intervention scheduled/documente d in this visit OT ADLs/IADLs Disciplines: OT 04/01/2023 Active 1 goal linked to scheduled/document ed intervention 1 goal intervention scheduled/documente d in this visit OT Aerobic Capacity for Functional Activity Disciplines: OT 04/01/2023 Active 1 goal linked to scheduled/document ed intervention 1 goal intervention scheduled/documente d in this visit OT Functional Transfers Disciplines: OT 04/01/2023 Active 1 goal linked to scheduled/document ed intervention 1 goal intervention scheduled/documente d in this visit Goals Goal Associated Problem Outcome Goal Met? Visit Notes Patient/caregiver will demonstrate ability to obtain, store, identify and administer ordered medications, keep accurate medication list in home, and adhere to medication schedule Description: Patient/caregiver will demonstrate ability to obtain, store, identify and administer ordered medications, keep accurate medication list in home, and adhere to medication schedule by 04-16-23. Medication Education No Patient/caregiver will be able to identify and report symptoms of sepsis Description: Patient/caregiver will be able to identify signs/symptoms of sepsis infection and will verbalize actions to take if suspected by 04-16-23. Sepsis No Patient to maintain parameters within physician-specified ranges throughout certification period Physician Specific Parameters No Manage Risk for falls Description: Patient/caregiver will verbalize knowledge of individualized fall prevention strategies by 04-16-23. Risk for Falls No Manage Pain Description: Patient/caregiver will verbalize knowledge and understanding of appropriate techniques to control pain, including pain medication and non-pharmacological techniques. Patient will verbalize or demonstrate an acceptable level of pain as evidenced by a pain score of 0-3/10 and improvement in ability to perform activities of daily living to be achieved by 04-16-23. Pain No Manage diabetic foot care Description: Patient/caregiver will demonstrate basic understanding of and compliance with diabetic self-care management as evidenced by verbalizing purpose of daily foot care and assessment by 04-16-23. Diabetic Foot Care No Manage oxygen Description: Patient/caregiver will use oxygen safely and effectively in home by verbalizing and demonstrating oxygen safety by 04-16-23. Oxygen No Patient/caregiver will teach back high risk medication side effect and precaution education High Risk Medications No Manage discharge planning Description: Patient/caregiver will verbalize understanding of ongoing discharge plan provided related to disease management, arrangements for outpatient and/or community services, obtaining medications, supplies, and DME, as needed throughout certification period. Discharge No Demonstrate understanding of education Description: Patient and/or caregiver will understand educational instruction to be achieved by 04/25/23 OT Learning Assessment No Improved ADLs/IADLs performance Description: patient will verbalize understanding of instructions and demonstrate improved performance of grooming, upper body dressing, lower body dressing, bathing, toileting and meal prep to independence as evidenced by improved Jenn ADL Index score to at least 80 to be achieved by 04/25/23. OT ADLs/IADLs No Improved Aerobic Capacity Description: Patient will demonstrate improved aerobic capacity to meet functional goals as evidenced by Rate of Perceived Exertion (RPE) 5 /10 during ADL/IADL to be achieved by 04/25/23. OT Aerobic Capacity for Functional Activity No Improved Functional Transfers Description: patient will demonstrate safe transfers to/from toilet and shower/tub with independent assistance and no verbal cues with use of DME to be achieved by 04/18/23. OT Functional Transfers No Interventions Intervention Associated Problem/Goal Status Variance Visit Notes Medication Education Description: Evaluate/instruct patient/caregiver on obtaining, storing, identifying and administering ordered medications as well as keeping accurate medication list in the home and adhereing to medication schedule Problem:Medication Education Goal:Patient/careg iver will demonstrate ability to obtain, store, identify and administer ordered medications, keep accurate medication list in home, and adhere to medication schedule Completed Patient instructed on importance of keeping accurate medication list in home, adhering to medication schedule, proper storage of medications, disposing of old and out of date medications and how to order refills. Risk of Sepsis Description: Patient is at risk for sepsis. Monitor closely for s/s of sepsis. Problem:Sepsis Goal:Patient/careg iver will be able to identify and report symptoms of sepsis Completed SPO2 Description: Notify if pulse ox is <92% at rest. Problem:Physician Specific Parameters Goal:Patient to maintain parameters within physician-specifie d ranges throughout certification period Completed Instruct on individual fall risk factors and strategies to prevent falls and injuries caused by falls. Problem:Risk for Falls Goal:Manage Risk for falls Completed OT: Patient instructed on Eliminating Environmental Hazards: Keep pathways clear, Keep pets out of pathways, Keep rooms and walkways well lit, Wear supportive shoes or non-skid socks and Keep frequently used items within reach Instruct on pain and instruct on strategies to control pain Problem:Pain Goal:Manage Pain Completed patient instructed on techniques to control pain including Pharmacological measures and Non-Pharmacological measures; rest and positioning/elevatio n. Monitor lower extremities for skin lesions and educate on proper foot care Problem:Diabetic Foot Care Goal:Manage diabetic foot care Completed patient instructed on diabetic foot care including daily skin inspection, wearing proper footwear/avoiding going barefoot, wash/dry feet thoroughly and applying moisturizer, avoiding between toes. Instruct on fire safety and safe and effective use of oxygen in the home Problem:Oxygen Goal:Manage oxygen Completed patient instructed on: causes of fires, firerisks for neighboring residences and buildings and precautions that can prevent fire-related injuries patient demonstrate compliance with safety recommendations. Opioids- educated on high risk medication Problem:High Risk Medications Goal:Patient/careg iver will teach back high risk medication side effect and precaution education Completed patient educated on taking medication(s) as prescribed by provider. Do not stop medication or alter doses without speaking with your provider. Discuss medication effectiveness or side effect concerns with your provider and home care team. Only take opioids as prescribed, do not share your medications, and take proper precautions in storing and properly disposing of opioids once no longer needed. Possible side effects of opioid medication including sedation, decreased rate of breathing, and constipation. Report over sedation to prescribing provider and practice deep breathing techniques every hour while awake. Prevent constipation by increasing water and fiber intake, increasing activity as tolerated, and use stool softener(s) as prescribed. Instruct on ongoing discharge plan Problem:Discharge Goal:Manage discharge planning Completed Ongoing Discharge plan: Discharge plan discussed with patient including frequency and duration for home OT and plan for transition to: caregiver assistance. Instruct and educate on knowledge deficits Problem:OT Learning Assessment Goal:Demonstrate understanding of education Completed Education methods include: verbal cues. Patient/Caregiver require further education to improve knowledge and compliance with cardiac disease management, fall prevention strategies, oxygen safety, pain management, pulmonary disease management, infection control precautions, functional adl/iadl activity, endurance training and discharge planning. ADL/IADLs Training Problem:OT ADLs/IADLs Goal:Improved ADLs/IADLs performance Completed Instruct patient on energy conservation and safety and falls prevention and no adaptive equipment use to facilite improved performance of meal prep, homemaking and kitchen mobility with independence and no verbal cues. Pt. uses a gas stove to cook, Pt. does NOT wear his O2 during uses a stove. Pt. reporting he made a meatloaf the other day. Pt. is able to access lower cabinets by sitting in a computer chair and wheel around kitchen. Pt. stating he is able to perform his dressing, grooming and bathing tasks indepenedently. Aerobic Capacity Training Problem:OT Aerobic Capacity for Functional Activity Goal:Improved Aerobic Capacity Completed Instruct patient on utilization of the Rate of Perceived Exertion (RPE) scale and energy conservation techniques with verbal cues. Developed, implemented, and instructed patient on completing 5-7 minutes of paced activity. Pt. rating tasks a 3/10 on RPE Scale. Transfer Training Problem:OT Functional Transfers Goal:Improved Functional Transfers Completed with variance Patient independent Pt. stating he is independent with bathroom transfers and does not need assistance. [facility] Visit Details Visit Type -SN ROUTINE Discipline -Half-Way Problems Problem Description Start Date Status Goals Interve ntions Medication Education Disciplines: Skilled Services 08/20/2022 Active 1 goal linked to scheduled/documen pawan intervention 1 goal intervention scheduled/document ed in this visit Sepsis Disciplines: Skilled Services 08/20/2022 Active 1 goal linked to scheduled/documen pawan intervention 1 goal intervention scheduled/document ed in this visit Physician Specific Parameters Disciplines: Skilled Services 08/20/2022 Active 1 goal linked to scheduled/documen pawan intervention 1 goal intervention scheduled/document ed in this visit Risk for Falls Disciplines: Skilled Services 08/20/2022 Active 1 goal linked to scheduled/documen pawan intervention 1 goal intervention scheduled/document ed in this visit Pain Disciplines: Skilled Services 08/20/2022 Active 1 goal linked to scheduled/documen pawan intervention 1 goal intervention scheduled/document ed in this visit Diabetic Foot Care Disciplines: Skilled Services 08/20/2022 Active 1 goal linked to scheduled/documen pawan intervention 1 goal intervention scheduled/document ed in this visit Oxygen Disciplines: Skilled Services 08/20/2022 Active 1 goal linked to scheduled/documen pawan intervention 1 goal intervention scheduled/document ed in this visit High Risk Medications Disciplines: Skilled Services 08/20/2022 Active 1 goal linked to scheduled/documen pawan intervention 4 goal interventions scheduled/document ed in this visit Discharge Disciplines: Skilled Services 08/20/2022 Active 1 goal linked to scheduled/documen pawan intervention 1 goal intervention scheduled/document ed in this visit SN Edema Disciplines: SN 08/20/2022 Active 1 goal linked to scheduled/documen pawan intervention 1 goal intervention scheduled/document ed in this visit SN Diabetes Disciplines: SN 08/20/2022 Active 1 goal linked to scheduled/documen pawan intervention 1 goal intervention scheduled/document ed in this visit SN Cardiovascular Condition Disciplines: SN 08/20/2022 Active 1 goal linked to scheduled/documen pawan intervention 1 goal intervention scheduled/document ed in this visit SN COPD Disciplines: SN 09/22/2022 Active 1 goal linked to scheduled/documen pawan intervention 2 goal interventions scheduled/document ed in this visit SN Integumentary/Wound s Disciplines: SN 02/04/2023 Active 1 goal linked to scheduled/documen pawan intervention 1 goal intervention scheduled/document ed in this visit Recertification Disciplines: Skilled Services 02/13/2023 Active 1 goal linked to scheduled/documen pawan intervention 1 goal intervention scheduled/document ed in this visit Goals Goal Associated Problem Outcome Goal Met? Visit Notes Patient/caregiver will demonstrate ability to obtain, store, identify and administer ordered medications, keep accurate medication list in home, and adhere to medication schedule Description: Patient/caregiver will demonstrate ability to obtain, store, identify and administer ordered medications, keep accurate medication list in home, and adhere to medication schedule by 04-16-23. Medication Education No Patient/caregiver will be able to identify and report symptoms of sepsis Description: Patient/caregiver will be able to identify signs/symptoms of sepsis infection and will verbalize actions to take if suspected by 04-16-23. Sepsis No Patient to maintain parameters within physician-specified ranges throughout certification period Physician Specific Parameters No Manage Risk for falls Description: Patient/caregiver will verbalize knowledge of individualized fall prevention strategies by 04-16-23. Risk for Falls No Manage Pain Description: Patient/caregiver will verbalize knowledge and understanding of appropriate techniques to control pain, including pain medication and non-pharmacological techniques. Patient will verbalize or demonstrate an acceptable level of pain as evidenced by a pain score of 0-3/10 and improvement in ability to perform activities of daily living to be achieved by 04-16-23. Pain No Manage diabetic foot care Description: Patient/caregiver will demonstrate basic understanding of and compliance with diabetic self-care management as evidenced by verbalizing purpose of daily foot care and assessment by 04-16-23. Diabetic Foot Care No Manage oxygen Description: Patient/caregiver will use oxygen safely and effectively in home by verbalizing and demonstrating oxygen safety by 04-16-23. Oxygen No Patient/caregiver will teach back high risk medication side effect and precaution education High Risk Medications No Manage discharge planning Description: Patient/caregiver will verbalize understanding of ongoing discharge plan provided related to disease management, arrangements for outpatient and/or community services, obtaining medications, supplies, and DME, as needed throughout certification period. Discharge No Patient will have improved edema management Description: Patient/caregiver will demonstrate an understanding of edema management strategies as evidenced by resolution or stabilization of edema by 04-16-23. SN Edema No Improved management of diabetes Description: Improve diabetic management as evidenced by patient/caregiver able to teach back diabetic management strategies by 04-16-23. SN Diabetes No Improved management of cardiovascular disease Description: Improve patient/caregiver management of cardiac disease as evidenced by patient/caregiver ability to teach back cardiac management strategies by 04-16-23. SN Cardiovascular Condition No Improved management of COPD Description: Improve COPD management as evidenced by decreased reports of dyspnea, medication compliance, and patient able to teach back strategies to manage condition. Goal to be achieved by 04-16-23 SN COPD No Patient/Caregiver will have improved healing and be free of signs and symptoms of complications Description: Patient/caregiver will verbalize management strategies to promote wound healing & prevent complications as evidenced by improved healing & no complications. SN Integumentary/Wounds No Ongoing review of POC and need for skilled services Recertification No Interventions Intervention Associated Problem/Goal Status Variance Visit Notes Medication Education Description: Evaluate/instruct patient/caregiver on obtaining, storing, identifying and administering ordered medications as well as keeping accurate medication list in the home and adhereing to medication schedule Problem:Medication Education Goal:Patient/caregive r will demonstrate ability to obtain, store, identify and administer ordered medications, keep accurate medication list in home, and adhere to medication schedule Completed Patient instructed on importance of keeping accurate medication list in home, adhering to medication schedule and proper storage of medications. Risk of Sepsis Description: Patient is at risk for sepsis. Monitor closely for s/s of sepsis. Problem:Sepsis Goal:Patient/caregive r will be able to identify and report symptoms of sepsis Completed SPO2 Description: Notify if pulse ox is <92% at rest. Problem:Physician Specific Parameters Goal:Patient to maintain parameters within physician-specified ranges throughout certification period Completed Instruct on individual fall risk factors and strategies to prevent falls and injuries caused by falls. Problem:Risk for Falls Goal:Manage Risk for falls Completed SN: Patient instructed on Eliminating Environmental Hazards: Keep pathways clear, Keep pets out of pathways, Keep rooms and walkways well lit, Wear supportive shoes or non-skid socks and Keep frequently used items within reach Instruct on pain and instruct on strategies to control pain Problem:Pain Goal:Manage Pain Completed patient instructed on techniques to control pain including Pharmacological measures and Non-Pharmacological measures; rest, positioning/elevation, mobility/therapeutic exercise and distraction. Monitor lower extremities for skin lesions and educate on proper foot care Problem:Diabetic Foot Care Goal:Manage diabetic foot care Completed patient instructed on diabetic foot care including daily skin inspection, wearing proper footwear/avoiding going barefoot, wash/dry feet thoroughly, applying moisturizer, avoiding between toes and toenail care. Instruct on fire safety and safe and effective use of oxygen in the home Problem:Oxygen Goal:Manage oxygen Completed patient instructed on: findings of safety risk assessment, causes of fires, firerisks for neighboring residences and buildings, precautions that can prevent fire-related injuries and oxygen safety as outlined in Home Care Patient Handbook patient demonstrate compliance with safety recommendations. Opioids- educated on high risk medication Problem:High Risk Medications Goal:Patient/caregive r will teach back high risk medication side effect and precaution education Completed patient educated on taking medication(s) as prescribed by provider. Do not stop medication or alter doses without speaking with your provider. Discuss medication effectiveness or side effect concerns with your provider and home care team. Only take opioids as prescribed, do not share your medications, and take proper precautions in storing and properly disposing of opioids once no longer needed. Possible side effects of opioid medication including sedation, decreased rate of breathing, and constipation. Report over sedation to prescribing provider and practice deep breathing techniques every hour while awake. Prevent constipation by increasing water and fiber intake, increasing activity as tolerated, and use stool softener(s) as prescribed. Hypoglycemic (including insulin)- educated on high risk medication Problem:High Risk Medications Goal:Patient/caregive r will teach back high risk medication side effect and precaution education Completed patient educated on taking medication(s) as prescribed by provider. Do not stop medication or skip/alter doses without speaking with your provider. Discuss medication effectiveness or side effect concerns with your provider and home care team. Check blood sugars and keep log as ordered by provider. Monitor for side effects of hypoglycemia such as increased weakness or shaking, moist skin, sweating, fast heartbeat, dizziness, sudden hunger, confusion, pale skin, numbness in mouth or tongue, irritability, nervousness, unsteadiness, nightmares, bad dreams, and restless sleep. Checking your blood sugar routinely and eating a consistent diabetic diet can help regulate blood sugars and reduce side effects. Antiplatelet- educated on high risk medication Problem:High Risk Medications Goal:Patient/caregive r will teach back high risk medication side effect and precaution education Completed patient educated on taking medication(s) as prescribed by provider. Do not stop medication or alter doses without speaking with your provider. Discuss medication effectiveness or side effect concerns with your provider and home care team. Discuss all medications you are taking, even jowh-jor-amwdhol medicines, with your provider and pharmacist since many drugs can interact with antiplatelet medications. If you forget to take a dose, DO NOT take a double dose. Take the missed dose as soon as possible on the same day. DO NOT take a double dose the next day to make up for the missed dose. Watch for signs of abnormal or excessive bleeding and bruising (refer to Bleeding Precautions education). Call your health care provider right away if you suspect something is wrong. Antibiotic- educated on high risk medication Problem:High Risk Medications Goal:Patient/caregive r will teach back high risk medication side effect and precaution education Completed patient educated on taking medication(s) as prescribed by provider. Do not stop medication or alter doses without speaking with your provider. Discuss medication effectiveness or side effect concerns with your provider and home care team. Take the full dispensed amount even if you start feeling better, as bacteria can become resistant to antibiotic treatment if you do not finish your prescription. Common side effects are upset stomach and diarrhea. Take your antibiotics with food unless otherwise indicated to help with indigestion. Taking an chck-rjr-zncbbwl probiotic or eating yogurt with live and active cultures three times a day can help prevent antibiotic-associated diarrhea. Call your provider immediately if you develop rashes or hives as this could be a delayed allergic reaction. Seek emergency treatment if you develop severe allergic reaction symptoms such as mouth or tongue swelling. Instruct on ongoing discharge plan Problem:Discharge Goal:Manage discharge planning Completed Ongoing Discharge plan: Discharge plan discussed with patient including frequency and duration for home SN and plan for transition to: caregiver assistance. Assess and instruct on measures to reduce edema Problem:SN Edema Goal:Patient will have improved edema management Completed patient instructed on elevation, compression, diet, medication compliance and benefits of activity. Instruct on diabetes disease process and management of chronic condition Description: Patient has needs for education of diabetes. Problem:SN Diabetes Goal:Improved management of diabetes Completed patient assessed and reinforced on diabetes disease process, how food and insulin affect blood sugar, diet education, how to carb count, recogonizing s/s of hypoglycemia and hyperglycemia and managing sick days as found in the diabetes self-care booklets. Instruct on cardiovascular disease process and management of condition Description: Patient has following cardiac diagnosis(es): CAD. Problem:SN Cardiovascular Condition Goal:Improved management of cardiovascular disease Completed patient instructed on cardiac disease process, self monitoring & symptom reporting and Cardiac Diet. Maintenance COPD Description: Reinforce Acute and Sub-acute management education. Instruct on review zone sheet, nutrition in relation to COPD management, energy conservation, pacing activities, independence in ADLs vs what caregiver should be helping with, home exercise, additional COPD resources available like chronic care clinics as found in the COPD binder. Problem:SN COPD Goal:Improved management of COPD Completed Reinforced Acute and Sub-acute management education. patient reinforced on zone sheet, nutrition in relation to COPD management and energy conservation pacing activities and Romeo in ADLs vs what caregiver should be helping with as found in the COPD binder. Acute COPD Description: Instruct on defintion of COPD, signs and symptoms of COPD exacerbation, use of zone sheet, use of MDIs, difference between rescue vs maintenance inhalers, use of nebulizer, smoking cessation, breathing management including pursed lip breathing, diaphragmatic breathing, positioning to reduce SOB, controlled coughing, use of incentive spirometer, and use of acapela as found in the COPD binder. Problem:SN COPD Goal:Improved management of COPD Completed patient reinforced on defintion of COPD, signs and symptoms of COPD exacerbation, use of zone sheet, difference between rescue vs maintenance inhalers, use of nebulizer, smoking cessation and breathing management: pursed lip breathing, diaphragmatic breathing, positioning to reduce SOB and controlled coughing as found in the COPD binder. Wound Care: Peform wound care (3) Description: Wound Care Order: Wound location: scrotum Wound type (etiology): Traumatic Order: Cleanse with Chlorahexadine or mild soap and water, rinse pat dry. apply lidocaine, apply protective barrier cream cover with dry dressing Frequency: daily and as needed for soiled Wound care to be completed by patient except for scheduled SN wound care visits. Measure wound/incision at least weekly. Okay to substitute comparable products from home care formulary. Problem:SN Integumentary/Wounds Goal:Patient/Caregive r will have improved healing and be free of signs and symptoms of complications Completed Completed by SN. Patient did tolerate well. Continued need for Home Care Services Description: POC and certification renewed due to continuing [facility] needs. Problem:Recertificati on Goal:Ongoing review of POC and need for skilled services Completed documented in this encounter [facility]'s home Plan of care note* Visit Details Visit Type -OT DISC DC W VIS IT Discipline -Occupational Therapy Problems Problem Description Start Date Status Goals Interve ntions Physician Specific Parameters Disciplines: Skilled Services 08/20/2022 Active 1 goal linked to scheduled/documen pawan intervention 1 goal intervention scheduled/document ed in this visit Pain Disciplines: Skilled Services 08/20/2022 Active 1 goal linked to scheduled/documen pawan intervention 1 goal intervention scheduled/document ed in this visit Diabetic Foot Care Disciplines: Skilled Services 08/20/2022 Active 1 goal linked to scheduled/documen pawan intervention 1 goal intervention scheduled/document ed in this visit High Risk Medications Disciplines: Skilled Services 08/20/2022 Active 1 goal linked to scheduled/documen pawan intervention 1 goal intervention scheduled/document ed in this visit Discharge Disciplines: Skilled Services 08/20/2022 Active 1 goal linked to scheduled/documen pawan intervention 1 goal intervention scheduled/document ed in this visit OT Learning Assessment Disciplines: OT 04/01/2023 Resolved on 04/14/2023 1 goal linked to scheduled/documen pawan intervention 1 goal intervention scheduled/document ed in this visit OT ADLs/IADLs Disciplines: OT 04/01/2023 Resolved on 04/14/2023 1 goal linked to scheduled/documen pawan intervention 1 goal intervention scheduled/document ed in this visit OT Aerobic Capacity for Functional Activity Disciplines: OT 04/01/2023 Resolved on 04/14/2023 1 goal linked to scheduled/documen pawan intervention 1 goal intervention scheduled/document ed in this visit OT Functional Transfers Disciplines: OT 04/01/2023 Resolved on 04/14/2023 1 goal linked to scheduled/documen pawan intervention 1 goal intervention scheduled/document ed in this visit Goals Goal Associated Problem Outcome Goal Met? Visit Notes Patient to maintain parameters within physician-specified ranges throughout certification period Physician Specific Parameters No Manage Pain Description: Patient/caregiver will verbalize knowledge and understanding of appropriate techniques to control pain, including pain medication and non-pharmacological techniques. Patient will verbalize or demonstrate an acceptable level of pain as evidenced by a pain score of 0-3/10 and improvement in ability to perform activities of daily living to be achieved by 04-16-23. Pain No Manage diabetic foot care Description: Patient/caregiver will demonstrate basic understanding of and compliance with diabetic self-care management as evidenced by verbalizing purpose of daily foot care and assessment by 04-16-23. Diabetic Foot Care No Patient/caregiver will teach back high risk medication side effect and precaution education High Risk Medications No Manage discharge planning Description: Patient/caregiver will verbalize understanding of ongoing discharge plan provided related to disease management, arrangements for outpatient and/or community services, obtaining medications, supplies, and DME, as needed throughout certification period. Discharge No Demonstrate understanding of education Description: Patient and/or caregiver will understand educational instruction to be achieved by 04/25/23 OT Learning Assessment Completed Yes goal met Improved ADLs/IADLs performance Description: patient will verbalize understanding of instructions and demonstrate improved performance of grooming, upper body dressing, lower body dressing, bathing, toileting and meal prep to independence as evidenced by improved Jenn ADL Index score to at least 80 to be achieved by 04/25/23. OT ADLs/IADLs Completed Yes goal met Improved Aerobic Capacity Description: Patient will demonstrate improved aerobic capacity to meet functional goals as evidenced by Rate of Perceived Exertion (RPE) 5 /10 during ADL/IADL to be achieved by 04/25/23. OT Aerobic Capacity for Functional Activity Completed Yes goal met Improved Functional Transfers Description: patient will demonstrate safe transfers to/from toilet and shower/tub with independent assistance and no verbal cues with use of DME to be achieved by 04/18/23. OT Functional Transfers Completed Yes goal met Interventions Intervention Associated Problem/Goal Status Variance Visit Notes SPO2 Description: Notify if pulse ox is <92% at rest. Problem:Physician Specific Parameters Goal:Patient to maintain parameters within physician-specified ranges throughout certification period Completed Instruct on pain and instruct on strategies to control pain Problem:Pain Goal:Manage Pain Completed patient instructed on techniques to control pain including Pharmacological measures and Non-Pharmacological measures; rest and positioning/elevation. Monitor lower extremities for skin lesions and educate on proper foot care Problem:Diabetic Foot Care Goal:Manage diabetic foot care Completed patient instructed on diabetic foot care including daily skin inspection, wearing proper footwear/avoiding going barefoot, wash/dry feet thoroughly and applying moisturizer, avoiding between toes. Antiplatelet- educated on high risk medication Problem:High Risk Medications Goal:Patient/caregive r will teach back high risk medication side effect and precaution education Completed patient educated on taking medication(s) as prescribed by provider. Do not stop medication or alter doses without speaking with your provider. Discuss medication effectiveness or side effect concerns with your provider and home care team. Discuss all medications you are taking, even yayf-xjl-dpcsxsy medicines, with your provider and pharmacist since many drugs can interact with antiplatelet medications. If you forget to take a dose, DO NOT take a double dose. Take the missed dose as soon as possible on the same day. DO NOT take a double dose the next day to make up for the missed dose. Watch for signs of abnormal or excessive bleeding and bruising (refer to Bleeding Precautions education). Call your health care provider right away if you suspect something is wrong. Instruct on final discharge plan and deliver discharge instructions Problem:Discharge Goal:Manage discharge planning Completed Delivered Discharge plan: Discharge plan discussed with patient for plan for transition to: caregiver assistance Instruct and educate on knowledge deficits Problem:OT Learning Assessment Goal:Demonstrate understanding of education Completed Education methods include: verbal cues. Patient/Caregiver require further education to improve knowledge and compliance with fall prevention strategies, pain management, home safety, functional adl/iadl activity and functional transfers. ADL/IADLs Training Problem:OT ADLs/IADLs Goal:Improved ADLs/IADLs performance Completed Instruct patient on safety and falls prevention and no adaptive equipment use to facilite improved performance of grooming, upper body dressing, lower body dressing, bathing, toileting hygiene and meal prep with independence Aerobic Capacity Training Problem:OT Aerobic Capacity for Functional Activity Goal:Improved Aerobic Capacity Completed Instruct patient on utilization of the Rate of Perceived Exertion (RPE) scale with verbal cues. Developed, implemented, and instructed patient on completing 10 min of activity with 3/10 score Transfer Training Problem:OT Functional Transfers Goal:Improved Functional Transfers Completed Instruct patient on safe transfers and proper techniques to perform to and from toilet and shower/tub to shower bench indep with all bathroom transfers [facility] Visit Details Visit Type -SN RECERT Discipline -Half-Way Problems Problem Description Start Date Status Goals Interve ntions Medication Education Disciplines: Skilled Services 08/20/2022 Active 1 goal linked to scheduled/docume nted intervention 1 goal intervention scheduled/documen pawan in this visit Sepsis Disciplines: Skilled Services 08/20/2022 Active 1 goal linked to scheduled/docume nted intervention 1 goal intervention scheduled/documen pawan in this visit Physician Specific Parameters Disciplines: Skilled Services 08/20/2022 Active 1 goal linked to scheduled/docume nted intervention 1 goal intervention scheduled/documen pawan in this visit Risk for Falls Disciplines: Skilled Services 08/20/2022 Active 1 goal linked to scheduled/docume nted intervention 1 goal intervention scheduled/documen pawan in this visit Pain Disciplines: Skilled Services 08/20/2022 Active 1 goal linked to scheduled/docume nted intervention 1 goal intervention scheduled/documen pawan in this visit Diabetic Foot Care Disciplines: Skilled Services 08/20/2022 Active 1 goal linked to scheduled/docume nted intervention 1 goal intervention scheduled/documen pawan in this visit Oxygen Disciplines: Skilled Services 08/20/2022 Active 1 goal linked to scheduled/docume nted intervention 1 goal intervention scheduled/documen pawan in this visit High Risk Medications Disciplines: Skilled Services 08/20/2022 Active 1 goal linked to scheduled/docume nted intervention 4 goal interventions scheduled/documen pawan in this visit Discharge Disciplines: Skilled Services 08/20/2022 Active 1 goal linked to scheduled/docume nted intervention 1 goal intervention scheduled/documen pawan in this visit SN Edema Disciplines: SN 08/20/2022 Active 1 goal linked to scheduled/docume nted intervention 1 goal intervention scheduled/documen pawan in this visit SN Diabetes Disciplines: SN 08/20/2022 Active 1 goal linked to scheduled/docume nted intervention 1 goal intervention scheduled/documen pawan in this visit SN Cardiovascular Condition Disciplines: SN 08/20/2022 Active 1 goal linked to scheduled/docume nted intervention 1 goal intervention scheduled/documen pawan in this visit SN Learning Assessment Disciplines: SN 08/20/2022 Active 1 goal linked to scheduled/docume nted intervention 1 goal intervention scheduled/documen pawan in this visit SN COPD Disciplines: SN 09/22/2022 Active 1 goal linked to scheduled/docume nted intervention 3 goal interventions scheduled/documen pawan in this visit SN Integumentary/Wound s Disciplines: SN 02/04/2023 Resolved on 04/15/2023 1 goal linked to scheduled/docume nted intervention 3 goal interventions scheduled/documen pawan in this visit Recertification Disciplines: Skilled Services 02/13/2023 Resolved on 04/15/2023 1 goal linked to scheduled/docume nted intervention 1 goal intervention scheduled/documen pawan in this visit Goals Goal Associated Problem Outcome Goal Met? Visit Notes Patient/caregiver will demonstrate ability to obtain, store, identify and administer ordered medications, keep accurate medication list in home, and adhere to medication schedule Description: Patient/caregiver will demonstrate ability to obtain, store, identify and administer ordered medications, keep accurate medication list in home, and adhere to medication schedule by 04-16-23. Medication Education No Patient/caregiver will be able to identify and report symptoms of sepsis Description: Patient/caregiver will be able to identify signs/symptoms of sepsis infection and will verbalize actions to take if suspected by 04-16-23. Sepsis No Patient to maintain parameters within physician-specified ranges throughout certification period Physician Specific Parameters No Manage Risk for falls Description: Patient/caregiver will verbalize knowledge of individualized fall prevention strategies by 04-16-23. Risk for Falls No Manage Pain Description: Patient/caregiver will verbalize knowledge and understanding of appropriate techniques to control pain, including pain medication and non-pharmacological techniques. Patient will verbalize or demonstrate an acceptable level of pain as evidenced by a pain score of 0-3/10 and improvement in ability to perform activities of daily living to be achieved by 04-16-23. Pain No Manage diabetic foot care Description: Patient/caregiver will demonstrate basic understanding of and compliance with diabetic self-care management as evidenced by verbalizing purpose of daily foot care and assessment by 04-16-23. Diabetic Foot Care No Manage oxygen Description: Patient/caregiver will use oxygen safely and effectively in home by verbalizing and demonstrating oxygen safety by 04-16-23. Oxygen No Patient/caregiver will teach back high risk medication side effect and precaution education High Risk Medications No Manage discharge planning Description: Patient/caregiver will verbalize understanding of ongoing discharge plan provided related to disease management, arrangements for outpatient and/or community services, obtaining medications, supplies, and DME, as needed throughout certification period. Discharge No Patient will have improved edema management Description: Patient/caregiver will demonstrate an understanding of edema management strategies as evidenced by resolution or stabilization of edema by 05-16-23. SN Edema No Improved management of diabetes Description: Improve diabetic management as evidenced by patient/caregiver able to teach back diabetic management strategies by 04-16-23. SN Diabetes No Improved management of cardiovascular disease Description: Improve patient/caregiver management of cardiac disease as evidenced by patient/caregiver ability to teach back cardiac management strategies by 04-16-23. SN Cardiovascular Condition No Demonstrate understanding of education Description: Patient and/or caregiver will verbalize understanding of educational instruction provided throughout certification period. SN Learning Assessment No Improved management of COPD Description: Improve COPD management as evidenced by decreased reports of dyspnea, medication compliance, and patient able to teach back strategies to manage condition. Goal to be achieved by 04-16-23 SN COPD No Patient/Caregiver will have improved healing and be free of signs and symptoms of complications Description: Patient/caregiver will verbalize management strategies to promote wound healing & prevent complications as evidenced by improved healing & no complications. SN Integumentary/Wounds Completed Yes Ongoing review of POC and need for skilled services Recertification Completed Yes Interventions Intervention Associated Problem/Goal Status Variance Visit Notes Medication Education Description: Evaluate/instruct patient/caregiver on obtaining, storing, identifying and administering ordered medications as well as keeping accurate medication list in the home and adhereing to medication schedule Problem:Medication Education Goal:Patient/caregive r will demonstrate ability to obtain, store, identify and administer ordered medications, keep accurate medication list in home, and adhere to medication schedule Completed Patient instructed on importance of keeping accurate medication list in home, adhering to medication schedule and proper storage of medications. Risk of Sepsis Description: Patient is at risk for sepsis. Monitor closely for s/s of sepsis. Problem:Sepsis Goal:Patient/caregive r will be able to identify and report symptoms of sepsis Completed SPO2 Description: Notify if pulse ox is <92% at rest. Problem:Physician Specific Parameters Goal:Patient to maintain parameters within physician-specified ranges throughout certification period Completed Instruct on individual fall risk factors and strategies to prevent falls and injuries caused by falls. Problem:Risk for Falls Goal:Manage Risk for falls Completed SN: Patient instructed on Eliminating Environmental Hazards: Keep pathways clear, Keep pets out of pathways, Keep rooms and walkways well lit, Wear supportive shoes or non-skid socks and Keep frequently used items within reach Instruct on pain and instruct on strategies to control pain Problem:Pain Goal:Manage Pain Completed patient instructed on techniques to control pain including Pharmacological measures and Non-Pharmacological measures; rest, positioning/elevation, mobility/therapeutic exercise, distraction, breathing/relaxation and use of DME/assistive devices. Monitor lower extremities for skin lesions and educate on proper foot care Problem:Diabetic Foot Care Goal:Manage diabetic foot care Completed patient instructed on diabetic foot care including daily skin inspection, wearing proper footwear/avoiding going barefoot, wash/dry feet thoroughly, applying moisturizer, avoiding between toes and toenail care. Instruct on fire safety and safe and effective use of oxygen in the home Problem:Oxygen Goal:Manage oxygen Completed patient instructed on: findings of safety risk assessment, causes of fires, firerisks for neighboring residences and buildings, precautions that can prevent fire-related injuries, oxygen safety as outlined in Home Care Patient Handbook and recommendations for specific safety risks identified in the home: maintenance of working smoke detectors and changing batteries, establishment of fire escape plan, telephone accessibility and implementation of no-smoking policy in home, including e-cigarettes and posting of No-Smoking signs on entrance doors patient demonstrate compliance with safety recommendations. Opioids- educated on high risk medication Problem:High Risk Medications Goal:Patient/caregive r will teach back high risk medication side effect and precaution education Completed patient educated on taking medication(s) as prescribed by provider. Do not stop medication or alter doses without speaking with your provider. Discuss medication effectiveness or side effect concerns with your provider and home care team. Only take opioids as prescribed, do not share your medications, and take proper precautions in storing and properly disposing of opioids once no longer needed. Possible side effects of opioid medication including sedation, decreased rate of breathing, and constipation. Report over sedation to prescribing provider and practice deep breathing techniques every hour while awake. Prevent constipation by increasing water and fiber intake, increasing activity as tolerated, and use stool softener(s) as prescribed. Hypoglycemic (including insulin)- educated on high risk medication Problem:High Risk Medications Goal:Patient/caregive r will teach back high risk medication side effect and precaution education Completed patient educated on taking medication(s) as prescribed by provider. Do not stop medication or skip/alter doses without speaking with your provider. Discuss medication effectiveness or side effect concerns with your provider and home care team. Check blood sugars and keep log as ordered by provider. Monitor for side effects of hypoglycemia such as increased weakness or shaking, moist skin, sweating, fast heartbeat, dizziness, sudden hunger, confusion, pale skin, numbness in mouth or tongue, irritability, nervousness, unsteadiness, nightmares, bad dreams, and restless sleep. Checking your blood sugar routinely and eating a consistent diabetic diet can help regulate blood sugars and reduce side effects. Antiplatelet- educated on high risk medication Problem:High Risk Medications Goal:Patient/caregive r will teach back high risk medication side effect and precaution education Completed patient educated on taking medication(s) as prescribed by provider. Do not stop medication or alter doses without speaking with your provider. Discuss medication effectiveness or side effect concerns with your provider and home care team. Discuss all medications you are taking, even gxrv-lqd-[id number] medicines, with your provider and pharmacist since many drugs can interact with antiplatelet medications. If you forget to take a dose, DO NOT take a double dose. Take the missed dose as soon as possible on the same day. DO NOT take a double dose the next day to make up for the missed dose. Watch for signs of abnormal or excessive bleeding and bruising (refer to Bleeding Precautions education). Call your health care provider right away if you suspect something is wrong. Antibiotic- educated on high risk medication Problem:High Risk Medications Goal:Patient/caregive r will teach back high risk medication side effect and precaution education Completed patient educated on taking medication(s) as prescribed by provider. Do not stop medication or alter doses without speaking with your provider. Discuss medication effectiveness or side effect concerns with your provider and home care team. Take the full dispensed amount even if you start feeling better, as bacteria can become resistant to antibiotic treatment if you do not finish your prescription. Common side effects are upset stomach and diarrhea. Take your antibiotics with food unless otherwise indicated to help with indigestion. Taking an [id number] probiotic or eating yogurt with live and active cultures three times a day can help prevent antibiotic-associated diarrhea. Call your provider immediately if you develop rashes or hives as this could be a delayed allergic reaction. Seek emergency treatment if you develop severe allergic reaction symptoms such as mouth or tongue swelling. Instruct on ongoing discharge plan Problem:Discharge Goal:Manage discharge planning Completed Ongoing Discharge plan: Discharge plan discussed with patient including frequency and duration for home SN and plan for transition to: caregiver assistance. Assess and instruct on measures to reduce edema Problem:SN Edema Goal:Patient will have improved edema management Completed patient instructed on elevation, compression, diet, medication compliance and benefits of activity. Instruct on diabetes disease process and management of chronic condition Description: Patient has needs for education of diabetes. Problem:SN Diabetes Goal:Improved management of diabetes Completed patient assessed and reinforced on diabetes disease process, diet education, how to carb count and recogonizing s/s of hypoglycemia and hyperglycemia as found in the diabetes self-care booklets. Instruct on cardiovascular disease process and management of condition Description: Patient has following cardiac diagnosis(es): CAD. Problem:SN Cardiovascular Condition Goal:Improved management of cardiovascular disease Completed patient instructed on cardiac disease process, self monitoring & symptom reporting, DVT/PE prevention and Cardiac Diet. Instruct and educate on knowledge deficits Problem:SN Learning Assessment Goal:Demonstrate understanding of education Completed patient verbalize and/or demonstrate understanding of nursing education completed today. Education methods include: verbal cues. Further education required to improve knowledge and compliance with cardiac disease management, diabetic care management, fall prevention/home safety strategies and incision/wound care management. Maintenance COPD Description: Reinforce Acute and Sub-acute management education. Instruct on review zone sheet, nutrition in relation to COPD management, energy conservation, pacing activities, independence in ADLs vs what caregiver should be helping with, home exercise, additional COPD resources available like chronic care clinics as found in the COPD binder. Problem:SN COPD Goal:Improved management of COPD Completed Reinforced Acute and Sub-acute management education. patient reinforced on zone sheet, nutrition in relation to COPD management and energy conservation pacing activities and Romeo in ADLs vs what caregiver should be helping with as found in the COPD binder. Sub-acute COPD Description: Reinforce Acute COPD management education. Instruct on zone sheet, methods to reduce infection risks, anxiety management including relaxation techniques, importance of sleep, stress reduction, and coping strategies for living with COPD as found in the COPD binder. Problem:SN COPD Goal:Improved management of COPD Completed Reinforced Acute COPD management education. patient instructed on zone sheet, methods to reduce infection risks, anxiety management including: relaxation techniques, importance of sleep and stress reduction and coping strategies for living with COPD as found in the COPD binder. Acute COPD Description: Instruct on defintion of COPD, signs and symptoms of COPD exacerbation, use of zone sheet, use of MDIs, difference between rescue vs maintenance inhalers, use of nebulizer, smoking cessation, breathing management including pursed lip breathing, diaphragmatic breathing, positioning to reduce SOB, controlled coughing, use of incentive spirometer, and use of acapela as found in the COPD binder. Problem:SN COPD Goal:Improved management of COPD Completed patient reinforced on defintion of COPD, signs and symptoms of COPD exacerbation, use of zone sheet, difference between rescue vs maintenance inhalers, use of nebulizer, smoking cessation and breathing management: pursed lip breathing, diaphragmatic breathing, positioning to reduce SOB and use of incentive spirometer as found in the COPD binder. Wound Care: Perform wound care (1) Description: Wound Care Order: Wound location: left inner thigh Wound type (etiology): Surgical Wound Order: Cleanse with Chlorahexadine or mild soap and water, rinse pat dry. apply lidocaine, pack with aquacell silver ag, cover with dry dressing Frequency: change every other day and as needed Wound care to be completed by patient except for scheduled SN wound care visits. Measure wound/incision at least weekly. Okay to substitute comparable products from home care formulary. Problem:SN Integumentary/Wounds Goal:Patient/Caregive r will have improved healing and be free of signs and symptoms of complications Completed Completed by SN. Patient did tolerate well. Instruct patient/caregiver healing process and management measures to promote healing and avoid complications Problem:SN Integumentary/Wounds Goal:Patient/Caregive r will have improved healing and be free of signs and symptoms of complications Completed patient instructed on the following: healing process, signs and symptoms of infection, importance of good nutrition, importance of managing blood sugars, smoking cessation and when to report symptoms. Instruct Patient/Caregiver on wound/incision care procedure as ordered by physician Problem:SN Integumentary/Wounds Goal:Patient/Caregive r will have improved healing and be free of signs and symptoms of complications Completed patient instructed on and return demonstrated wound care as ordered by Physician. Continued need for Home Care Services Description: POC and certification renewed due to continuing [facility] needs. Problem:Recertificati on Goal:Ongoing review of POC and need for skilled services Com[facility] Visit Details Visit Type -SN ROUTINE Discipline -Half-Way Problems Problem Description Start Date Status Goals Interve ntions Medication Education Disciplines: Skilled Services 08/20/2022 Active 1 goal linked to scheduled/documen pawan intervention 1 goal intervention scheduled/document ed in this visit Sepsis Disciplines: Skilled Services 08/20/2022 Active 1 goal linked to scheduled/documen pawan intervention 1 goal intervention scheduled/document ed in this visit Physician Specific Parameters Disciplines: Skilled Services 08/20/2022 Active 1 goal linked to scheduled/documen pawan intervention 1 goal intervention scheduled/document ed in this visit Risk for Falls Disciplines: Skilled Services 08/20/2022 Active 1 goal linked to scheduled/documen pawan intervention 1 goal intervention scheduled/document ed in this visit Diabetic Foot Care Disciplines: Skilled Services 08/20/2022 Active 1 goal linked to scheduled/documen pawan intervention 1 goal intervention scheduled/document ed in this visit Oxygen Disciplines: Skilled Services 08/20/2022 Active 1 goal linked to scheduled/documen pawan intervention 1 goal intervention scheduled/document ed in this visit High Risk Medications Disciplines: Skilled Services 08/20/2022 Active 1 goal linked to scheduled/documen pawan intervention 4 goal interventions scheduled/document ed in this visit Discharge Disciplines: Skilled Services 08/20/2022 Active 1 goal linked to scheduled/documen pawan intervention 1 goal intervention scheduled/document ed in this visit SN Edema Disciplines: SN 08/20/2022 Active 1 goal linked to scheduled/documen pawan intervention 1 goal intervention scheduled/document ed in this visit SN Diabetes Disciplines: SN 08/20/2022 Active 1 goal linked to scheduled/documen pawan intervention 1 goal intervention scheduled/document ed in this visit SN Cardiovascular Condition Disciplines: SN 08/20/2022 Active 1 goal linked to scheduled/documen pawan intervention 1 goal intervention scheduled/document ed in this visit SN Learning Assessment Disciplines: SN 08/20/2022 Active 1 goal linked to scheduled/documen pawan intervention 1 goal intervention scheduled/document ed in this visit SN COPD Disciplines: SN 09/22/2022 Active 1 goal linked to scheduled/documen pawan intervention 1 goal intervention scheduled/document ed in this visit SN Integumentary/Wound s Disciplines: SN 04/15/2023 Active 1 goal linked to scheduled/documen pawan intervention 3 goal interventions scheduled/document ed in this visit Goals Goal Associated Problem Outcome Goal Met? Visit Notes Patient/caregiver will demonstrate ability to obtain, store, identify and administer ordered medications, keep accurate medication list in home, and adhere to medication schedule Description: Patient/caregiver will demonstrate ability to obtain, store, identify and administer ordered medications, keep accurate medication list in home, and adhere to medication schedule by 04-16-23. Medication Education No Patient/caregiver will be able to identify and report symptoms of sepsis Description: Patient/caregiver will be able to identify signs/symptoms of sepsis infection and will verbalize actions to take if suspected by 04-16-23. Sepsis No Patient to maintain parameters within physician-specified ranges throughout certification period Physician Specific Parameters No Manage Risk for falls Description: Patient/caregiver will verbalize knowledge of individualized fall prevention strategies by 04-16-23. Risk for Falls No Manage diabetic foot care Description: Patient/caregiver will demonstrate basic understanding of and compliance with diabetic self-care management as evidenced by verbalizing purpose of daily foot care and assessment by 04-16-23. Diabetic Foot Care No Manage oxygen Description: Patient/caregiver will use oxygen safely and effectively in home by verbalizing and demonstrating oxygen safety by 04-16-23. Oxygen No Patient/caregiver will teach back high risk medication side effect and precaution education High Risk Medications No Manage discharge planning Description: Patient/caregiver will verbalize understanding of ongoing discharge plan provided related to disease management, arrangements for outpatient and/or community services, obtaining medications, supplies, and DME, as needed throughout certification period. Discharge No Patient will have improved edema management Description: Patient/caregiver will demonstrate an understanding of edema management strategies as evidenced by resolution or stabilization of edema by 05-16-23. SN Edema No Improved management of diabetes Description: Improve diabetic management as evidenced by patient/caregiver able to teach back diabetic management strategies by 04-16-23. SN Diabetes No Improved management of cardiovascular disease Description: Improve patient/caregiver management of cardiac disease as evidenced by patient/caregiver ability to teach back cardiac management strategies by 04-16-23. SN Cardiovascular Condition No Demonstrate understanding of education Description: Patient and/or caregiver will verbalize understanding of educational instruction provided throughout certification period. SN Learning Assessment No Improved management of COPD Description: Improve COPD management as evidenced by decreased reports of dyspnea, medication compliance, and patient able to teach back strategies to manage condition. Goal to be achieved by 04-16-23 SN COPD No Patient/Caregiver will have improved healing and be free of signs and symptoms of complications Description: Patient/caregiver will verbalize management strategies to promote wound healing & prevent complications as evidenced by improved healing & no complications by 05-16-23. SN Integumentary/Wounds No Interventions Intervention Associated Problem/Goal Status Variance Visit Notes Medication Education Description: Evaluate/instruct patient/caregiver on obtaining, storing, identifying and administering ordered medications as well as keeping accurate medication list in the home and adhereing to medication schedule Problem:Medication Education Goal:Patient/caregive r will demonstrate ability to obtain, store, identify and administer ordered medications, keep accurate medication list in home, and adhere to medication schedule Completed Patient instructed on importance of keeping accurate medication list in home, adhering to medication schedule and proper storage of medications. Risk of Sepsis Description: Patient is at risk for sepsis. Monitor closely for s/s of sepsis. Problem:Sepsis Goal:Patient/caregive r will be able to identify and report symptoms of sepsis Completed SPO2 Description: Notify if pulse ox is <92% at rest. Problem:Physician Specific Parameters Goal:Patient to maintain parameters within physician-specified ranges throughout certification period Completed Instruct on individual fall risk factors and strategies to prevent falls and injuries caused by falls. Problem:Risk for Falls Goal:Manage Risk for falls Completed SN: Patient instructed on Eliminating Environmental Hazards: Keep pathways clear, Keep pets out of pathways, Keep rooms and walkways well lit, Wear supportive shoes or non-skid socks and Keep frequently used items within reach Monitor lower extremities for skin lesions and educate on proper foot care Problem:Diabetic Foot Care Goal:Manage diabetic foot care Completed patient instructed on diabetic foot care including daily skin inspection, wearing proper footwear/avoiding going barefoot, wash/dry feet thoroughly, applying moisturizer, avoiding between toes and toenail care. Instruct on fire safety and safe and effective use of oxygen in the home Problem:Oxygen Goal:Manage oxygen Completed patient instructed on: findings of safety risk assessment, causes of fires, firerisks for neighboring residences and buildings, precautions that can prevent fire-related injuries, oxygen safety as outlined in Home Care Patient Handbook and recommendations for specific safety risks identified in the home: maintenance of working smoke detectors and changing batteries, establishment of fire escape plan, telephone accessibility and implementation of no-smoking policy in home, including e-cigarettes and posting of No-Smoking signs on entrance doors patient demonstrate compliance with safety recommendations. Opioids- educated on high risk medication Problem:High Risk Medications Goal:Patient/caregive r will teach back high risk medication side effect and precaution education Completed patient educated on taking medication(s) as prescribed by provider. Do not stop medication or alter doses without speaking with your provider. Discuss medication effectiveness or side effect concerns with your provider and home care team. Only take opioids as prescribed, do not share your medications, and take proper precautions in storing and properly disposing of opioids once no longer needed. Possible side effects of opioid medication including sedation, decreased rate of breathing, and constipation. Report over sedation to prescribing provider and practice deep breathing techniques every hour while awake. Prevent constipation by increasing water and fiber intake, increasing activity as tolerated, and use stool softener(s) as prescribed. Hypoglycemic (including insulin)- educated on high risk medication Problem:High Risk Medications Goal:Patient/caregive r will teach back high risk medication side effect and precaution education Completed patient educated on taking medication(s) as prescribed by provider. Do not stop medication or skip/alter doses without speaking with your provider. Discuss medication effectiveness or side effect concerns with your provider and home care team. Check blood sugars and keep log as ordered by provider. Monitor for side effects of hypoglycemia such as increased weakness or shaking, moist skin, sweating, fast heartbeat, dizziness, sudden hunger, confusion, pale skin, numbness in mouth or tongue, irritability, nervousness, unsteadiness, nightmares, bad dreams, and restless sleep. Checking your blood sugar routinely and eating a consistent diabetic diet can help regulate blood sugars and reduce side effects. Antiplatelet- educated on high risk medication Problem:High Risk Medications Goal:Patient/caregive r will teach back high risk medication side effect and precaution education Completed patient educated on taking medication(s) as prescribed by provider. Do not stop medication or alter doses without speaking with your provider. Discuss medication effectiveness or side effect concerns with your provider and home care team. Discuss all medications you are taking, even hirl-jmi-wigrmgl medicines, with your provider and pharmacist since many drugs can interact with antiplatelet medications. If you forget to take a dose, DO NOT take a double dose. Take the missed dose as soon as possible on the same day. DO NOT take a double dose the next day to make up for the missed dose. Watch for signs of abnormal or excessive bleeding and bruising (refer to Bleeding Precautions education). Call your health care provider right away if you suspect something is wrong. Antibiotic- educated on high risk medication Problem:High Risk Medications Goal:Patient/caregive r will teach back high risk medication side effect and precaution education Completed patient educated on taking medication(s) as prescribed by provider. Do not stop medication or alter doses without speaking with your provider. Discuss medication effectiveness or side effect concerns with your provider and home care team. Take the full dispensed amount even if you start feeling better, as bacteria can become resistant to antibiotic treatment if you do not finish your prescription. Common side effects are upset stomach and diarrhea. Take your antibiotics with food unless otherwise indicated to help with indigestion. Taking an qgbv-wzm-udgotmp probiotic or eating yogurt with live and active cultures three times a day can help prevent antibiotic-associated diarrhea. Call your provider immediately if you develop rashes or hives as this could be a delayed allergic reaction. Seek emergency treatment if you develop severe allergic reaction symptoms such as mouth or tongue swelling. Instruct on ongoing discharge plan Problem:Discharge Goal:Manage discharge planning Completed Ongoing Discharge plan: Discharge plan discussed with patient including frequency and duration for home SN and plan for transition to: caregiver assistance. Assess and instruct on measures to reduce edema Problem:SN Edema Goal:Patient will have improved edema management Completed patient instructed on elevation, compression and diet. Instruct on diabetes disease process and management of chronic condition Description: Patient has needs for education of diabetes. Problem:SN Diabetes Goal:Improved management of diabetes Completed patient assessed and reinforced on diabetes disease process, diet education, how to carb count and recogonizing s/s of hypoglycemia and hyperglycemia as found in the diabetes self-care booklets. Instruct on cardiovascular disease process and management of condition Description: Patient has following cardiac diagnosis(es): CAD. Problem:SN Cardiovascular Condition Goal:Improved management of cardiovascular disease Completed patient instructed on cardiac disease process, self monitoring & symptom reporting, DVT/PE prevention and Cardiac Diet. Instruct and educate on knowledge deficits Problem:SN Learning Assessment Goal:Demonstrate understanding of education Completed patient verbalize and/or demonstrate understanding of nursing education completed today. Education methods include: verbal cues and teach back. Further education required to improve knowledge and compliance with cardiac disease management, depression/anxiety care management, diabetic care management, fall prevention/home safety strategies and incision/wound care management. Maintenance COPD Description: Reinforce Acute and Sub-acute management education. Instruct on review zone sheet, nutrition in relation to COPD management, energy conservation, pacing activities, independence in ADLs vs what caregiver should be helping with, home exercise, additional COPD resources available like chronic care clinics as found in the COPD binder. Problem:SN COPD Goal:Improved management of COPD Completed Reinforced Acute and Sub-acute management education. patient reinforced on zone sheet, nutrition in relation to COPD management and energy conservation pacing activities and Romeo in ADLs vs what caregiver should be helping with as found in the COPD binder. Wound Care: Perform wound care (1) Description: Wound Care Order: Wound location: scrotum Wound type (etiology): Traumatic Order: cleanse with mild soap and water, rinse pat dry apply , cover with abd pad Frequency: daily and as needed for drainage Wound care to be completed by patient except for scheduled SN wound care visits. Measure wound/incision at least weekly. Okay to substitute comparable products from home care formulary. Problem:SN Integumentary/Wounds Goal:Patient/Caregive r will have improved healing and be free of signs and symptoms of complications Completed Completed by patient/caregiver completed independently . Patient did tolerate well. Instruct patient/caregiver healing process and management measures to promote healing and avoid complications Problem:SN Integumentary/Wounds Goal:Patient/Caregive r will have improved healing and be free of signs and symptoms of complications Completed patient instructed on the following: healing process, signs and symptoms of infection, importance of good nutrition, importance of managing blood sugars, smoking cessation and when to report symptoms. Instruct Patient/Caregiver on wound/incision care procedure as ordered by physician Problem:SN Integumentary/Wounds Goal:Patient/Caregive r will have improved healing and be free of signs and symptoms of complications Completed patient instructed on wound care as ordered by Physician. documented in this encounter [facility] home Plan of care note* Visit Details Visit Type -SN PRN VISIT Discipline -Half-Way Problems Problem Description Start Date Status Goals Interve ntions Medication Education Disciplines: Skilled Services 08/20/2022 Active 1 goal linked to scheduled/document ed intervention 1 goal intervention scheduled/documente d in this visit Sepsis Disciplines: Skilled Services 08/20/2022 Active 1 goal linked to scheduled/document ed intervention 1 goal intervention scheduled/documente d in this visit Physician Specific Parameters Disciplines: Skilled Services 08/20/2022 Active 1 goal linked to scheduled/document ed intervention 1 goal intervention scheduled/documente d in this visit Pain Disciplines: Skilled Services 08/20/2022 Active 1 goal linked to scheduled/document ed intervention 1 goal intervention scheduled/documente d in this visit SN Edema Disciplines: SN 08/20/2022 Active 1 goal linked to scheduled/document ed intervention 1 goal intervention scheduled/documente d in this visit SN COPD Disciplines: SN 09/22/2022 Active 1 goal linked to scheduled/document ed intervention 1 goal intervention scheduled/documente d in this visit SN Labwork Disciplines: SN 04/20/2023 Active 1 goal linked to scheduled/document ed intervention 1 goal intervention scheduled/documente d in this visit Goals Goal Associated Problem Outcome Goal Met? Visit Notes Patient/caregiver will demonstrate ability to obtain, store, identify and administer ordered medications, keep accurate medication list in home, and adhere to medication schedule Description: Patient/caregiver will demonstrate ability to obtain, store, identify and administer ordered medications, keep accurate medication list in home, and adhere to medication schedule by 04-16-23. Medication Education No Patient/caregiver will be able to identify and report symptoms of sepsis Description: Patient/caregiver will be able to identify signs/symptoms of sepsis infection and will verbalize actions to take if suspected by 04-16-23. Sepsis No Patient to maintain parameters within physician-specified ranges throughout certification period Physician Specific Parameters No Manage Pain Description: Patient/caregiver will verbalize knowledge and understanding of appropriate techniques to control pain, including pain medication and non-pharmacological techniques. Patient will verbalize or demonstrate an acceptable level of pain as evidenced by a pain score of 0-3/10 and improvement in ability to perform activities of daily living to be achieved by 04-16-23. Pain No Patient will have improved edema management Description: Patient/caregiver will demonstrate an understanding of edema management strategies as evidenced by resolution or stabilization of edema by 05-16-23. SN Edema No Improved management of COPD Description: Improve COPD management as evidenced by decreased reports of dyspnea, medication compliance, and patient able to teach back strategies to manage condition. Goal to be achieved by 04-16-23 SN COPD No SN to obtain lab specimen without difficulty when ordered throughout certification period SN Labwork No Interventions Intervention Associated Problem/Goal Status Variance Visit Notes Medication Education Description: Evaluate/instruct patient/caregiver on obtaining, storing, identifying and administering ordered medications as well as keeping accurate medication list in the home and adhereing to medication schedule Problem:Medication Education Goal:Patient/caregiver will demonstrate ability to obtain, store, identify and administer ordered medications, keep accurate medication list in home, and adhere to medication schedule Completed Patient instructed on importance of keeping accurate medication list in home and adhering to medication schedule. Risk of Sepsis Description: Patient is at risk for sepsis. Monitor closely for s/s of sepsis. Problem:Sepsis Goal:Patient/caregiver will be able to identify and report symptoms of sepsis Completed SPO2 Description: Notify if pulse ox is <92% at rest. Problem:Physician Specific Parameters Goal:Patient to maintain parameters within physician-specified ranges throughout certification period Completed Instruct on pain and instruct on strategies to control pain Problem:Pain Goal:Manage Pain Completed patient instructed on techniques to control pain including Non-Pharmacological measures; rest and distraction. Assess and instruct on measures to reduce edema Problem:SN Edema Goal:Patient will have improved edema management Completed patient instructed on elevation, compression and benefits of activity. Maintenance COPD Description: Reinforce Acute and Sub-acute management education. Instruct on review zone sheet, nutrition in relation to COPD management, energy conservation, pacing activities, independence in ADLs vs what caregiver should be helping with, home exercise, additional COPD resources available like chronic care clinics as found in the COPD binder. Problem:SN COPD Goal:Improved management of COPD Completed Reinforced Acute and Sub-acute management education. patient instructed on zone sheet and energy conservation pacing activities as found in the COPD binder. SN to obtain blood specimen (1) Description: Draw blood via venipuncture for CBC, CMP with a frequency of once on Date: week of 04/19/23. Results to Dillon Morrell DO Dx code(s): E87.6, R53.83, Z51.81 Problem:SN Labwork Goal:SN to obtain lab specimen without difficulty when ordered throughout certification period Completed [facility] data available for this section [facility] Summary Purpose Family History No Family History Records FoundNo Family History Records FoundNo Family History Records FoundNo Family History Records Found No data available for this section No data available for this section No data available for this section No Family History Records FoundNo Family History Records FoundNo Family History Records FoundNo Family History Records Found Advance Directives No Advanced Directives Records FoundLatest Code Status on File Code Status Date Activated Date Inactivated Comments Full Code 08/21/2022 8:59 PM Latest Code Status on File Code Status Date Activated Date Inactivated Comments Full Code 08/21/2022 8:59 PM Medications Administered Section Active Administered Medications - up to 3 most recent administrations Medication Order MAR Action Action Date Dose Rate Site piixwyxqk-epbbni-pemdhwvkg HCl (PRIZOTRAL) 2.5-2.5-3.88 % cream Apply 1 Each to affected area once daily. apply topically with wound care, Home Health Historical Meds Given 08/30/2022 10:15 AM EST 1 Each O ther Additional Source Comments (unrecognized sect ion and content) No Status Records FoundNo Status Records FoundNo Status Records FoundNo Status Records FoundNo Status Records FoundNo Status Records FoundNo Status Records FoundNo Status Records Found INFORMATION SOURCE (unrecogn ized section and content) DATE CREATED AUTHOR 02/01/2018 [employer] DATE CREATED AUTHOR AUTHOR'S ORGANIZ ATION 05/17/2018 [facility] DATE CREATED AUTHOR AUTHOR'S ORGANIZ ATION 07/14/2018 [facility] DATE CREATED AUTHOR AUTHOR'S ORGANIZ ATION 04/22/2023 [facility] DATE CREATED AUTHOR AUTHOR'S ORGANIZ ATION 10/21/2023 [facility] ([place] DATE CREATED AUTHOR AUTHOR'S ORGANIZ ATION 11/21/2023 [facility] DATE CREATED AUTHOR AUTHOR'S ORGANIZ ATION 11/21/2023 [facility] DATE CREATED AUTHOR AUTHOR'S ORGANIZ ATION 11/30/2023 [facility] Source Comments (unrecognize d section and content) In the event this informatio n is protected by the Federal Confidentiality of Alcohol and Drug Abuse Patient Records regulations: The Federal rules restrict any use of the information to criminally investigate or prosecute any alcohol or drug abuse patient.[facility] the event this information is protected by the Federal Confidentiality of Alcohol and Drug Abuse Patient Records regulations: The Federal rules restrict any use of the information to criminally investigate or prosecute any alcohol or drug abuse patient.[facility] Campus[facility] the event this information is protected by the Federal Confidentiality of Alcohol and Drug Abuse Patient Records regulations: The Federal rules restrict any use of the information to criminally investigate or prosecute any alcohol or drug abuse patient.[facility] Campus[facility] the event this information is protected by the Federal Confidentiality of Alcohol and Drug Abuse Patient Records regulations: The Federal rules restrict any use of the information to criminally investigate or prosecute any alcohol or drug abuse patient.[facility] the event this information is protected by the Federal Confidentiality of Alcohol and Drug Abuse Patient Records regulations: The Federal rules restrict any use of the information to criminally investigate or prosecute any alcohol or drug abuse patient.[facility] Campus[facility] the event this information is protected by the Federal Confidentiality of Alcohol and Drug Abuse Patient Records regulations: The Federal rules restrict any use of the information to criminally investigate or prosecute any alcohol or drug abuse patient.[facility] Campus[facility] the event this information is protected by the Federal Confidentiality of Alcohol and Drug Abuse Patient Records regulations: The Federal rules restrict any use of the information to criminally investigate or prosecute any alcohol or drug abuse patient.[facility] CampusIn the event this information is protected by the Federal Confidentiality of Alcohol and Drug Abuse Patient Records regulations: The Federal rules restrict any use of the information to criminally investigate or prosecute any alcohol or drug abuse patient.[facility] Campus[facility] the event this information is protected by the Federal Confidentiality of Alcohol and Drug Abuse Patient Records regulations: The Federal rules restrict any use of the information to criminally investigate or prosecute any alcohol or drug abuse patient.[facility] CampusIn the event this information is protected by the Federal Confidentiality of Alcohol and Drug Abuse Patient Records regulations: The Federal rules restrict any use of the information to criminally investigate or prosecute any alcohol or drug abuse patient.[facility] the event this information is protected by the Federal Confidentiality of Alcohol and Drug Abuse Patient Records regulations: The Federal rules restrict any use of the information to criminally investigate or prosecute any alcohol or drug abuse patient.[facility] CampusIn the event this information is protected by the Federal Confidentiality of Alcohol and Drug Abuse Patient Records regulations: The Federal rules restrict any use of the information to criminally investigate or prosecute any alcohol or drug abuse patient.[facility] Campus[facility] the event this information is protected by the Federal Confidentiality of Alcohol and Drug Abuse Patient Records regulations: The Federal rules restrict any use of the information to criminally investigate or prosecute any alcohol or drug abuse patient.[facility] CampusIn the event this information is protected by the Federal Confidentiality of Alcohol and Drug Abuse Patient Records regulations: The Federal rules restrict any use of the information to criminally investigate or prosecute any alcohol or drug abuse patient.[facility] CampusIn the event this information is protected by the Federal Confidentiality of Alcohol and Drug Abuse Patient Records regulations: The Federal rules restrict any use of the information to criminally investigate or prosecute any alcohol or drug abuse patient.[facility] CampusIn the event this information is protected by the Federal Confidentiality of Alcohol and Drug Abuse Patient Records regulations: The Federal rules restrict any use of the information to criminally investigate or prosecute any alcohol or drug abuse patient.[facility] CampusIn the event this information is protected by the Federal Confidentiality of Alcohol and Drug Abuse Patient Records regulations: The Federal rules restrict any use of the information to criminally investigate or prosecute any alcohol or drug abuse patient.[facility] CampusIn the event this information is protected by the Federal Confidentiality of Alcohol and Drug Abuse Patient Records regulations: The Federal rules restrict any use of the information to criminally investigate or prosecute any alcohol or drug abuse patient.[facility] CampusIn the event this information is protected by the Federal Confidentiality of Alcohol and Drug Abuse Patient Records regulations: The Federal rules restrict any use of the information to criminally investigate or prosecute any alcohol or drug abuse patient.[facility] CampusIn the event this information is protected by the Federal Confidentiality of Alcohol and Drug Abuse Patient Records regulations: The Federal rules restrict any use of the information to criminally investigate or prosecute any alcohol or drug abuse patient.[facility] CampusIn the event this information is protected by the Federal Confidentiality of Alcohol and Drug Abuse Patient Records regulations: The Federal rules restrict any use of the information to criminally investigate or prosecute any alcohol or drug abuse patient.[facility] CampusIn the event this information is protected by the Federal Confidentiality of Alcohol and Drug Abuse Patient Records regulations: The Federal rules restrict any use of the information to criminally investigate or prosecute any alcohol or drug abuse patient.[facility] CampusIn the event this information is protected by the Federal Confidentiality of Alcohol and Drug Abuse Patient Records regulations: The Federal rules restrict any use of the information to criminally investigate or prosecute any alcohol or drug abuse patient.[facility] CampusIn the event this information is protected by the Federal Confidentiality of Alcohol and Drug Abuse Patient Records regulations: The Federal rules restrict any use of the information to criminally investigate or prosecute any alcohol or drug abuse patient.[facility] CampusIn the event this information is protected by the Federal Confidentiality of Alcohol and Drug Abuse Patient Records regulations: The Federal rules restrict any use of the information to criminally investigate or prosecute any alcohol or drug abuse patient.[facility] CampusIn the event this information is protected by the Federal Confidentiality of Alcohol and Drug Abuse Patient Records regulations: The Federal rules restrict any use of the information to criminally investigate or prosecute any alcohol or drug abuse patient.[facility] CampusIn the event this information is protected by the Federal Confidentiality of Alcohol and Drug Abuse Patient Records regulations: The Federal rules restrict any use of the information to criminally investigate or prosecute any alcohol or drug abuse patient.[facility] CampusIn the event this information is protected by the Federal Confidentiality of Alcohol and Drug Abuse Patient Records regulations: The Federal rules restrict any use of the information to criminally investigate or prosecute any alcohol or drug abuse patient.[facility] CampusIn the event this information is protected by the Federal Confidentiality of Alcohol and Drug Abuse Patient Records regulations: The Federal rules restrict any use of the information to criminally investigate or prosecute any alcohol or drug abuse patient.[facility] CampusIn the event this information is protected by the Federal Confidentiality of Alcohol and Drug Abuse Patient Records regulations: The Federal rules restrict any use of the information to criminally investigate or prosecute any alcohol or drug abuse patient.[facility] CampusIn the event this information is protected by the Federal Confidentiality of Alcohol and Drug Abuse Patient Records regulations: The Federal rules restrict any use of the information to criminally investigate or prosecute any alcohol or drug abuse patient.[facility] CampusIn the event this information is protected by the Federal Confidentiality of Alcohol and Drug Abuse Patient Records regulations: The Federal rules restrict any use of the information to criminally investigate or prosecute any alcohol or drug abuse patient.[facility] CampusIn the event this information is protected by the Federal Confidentiality of Alcohol and Drug Abuse Patient Records regulations: The Federal rules restrict any use of the information to criminally investigate or prosecute any alcohol or drug abuse patient.[facility] CampusIn the event this information is protected by the Federal Confidentiality of Alcohol and Drug Abuse Patient Records regulations: The Federal rules restrict any use of the information to criminally investigate or prosecute any alcohol or drug abuse patient.[facility] CampusIn the event this information is protected by the Federal Confidentiality of Alcohol and Drug Abuse Patient Records regulations: The Federal rules restrict any use of the information to criminally investigate or prosecute any alcohol or drug abuse patient.[facility] CampusIn the event this information is protected by the Federal Confidentiality of Alcohol and Drug Abuse Patient Records regulations: The Federal rules restrict any use of the information to criminally investigate or prosecute any alcohol or drug abuse patient.[facility] CampusIn the event this information is protected by the Federal Confidentiality of Alcohol and Drug Abuse Patient Records regulations: The Federal rules restrict any use of the information to criminally investigate or prosecute any alcohol or drug abuse patient.[facility] CampusIn the event this information is protected by the Federal Confidentiality of Alcohol and Drug Abuse Patient Records regulations: The Federal rules restrict any use of the information to criminally investigate or prosecute any alcohol or drug abuse patient.[facility] CampusIn the event this information is protected by the Federal Confidentiality of Alcohol and Drug Abuse Patient Records regulations: The Federal rules restrict any use of the information to criminally investigate or prosecute any alcohol or drug abuse patient.[facility] CampusIn the event this information is protected by the Federal Confidentiality of Alcohol and Drug Abuse Patient Records regulations: The Federal rules restrict any use of the information to criminally investigate or prosecute any alcohol or drug abuse patient.[facility] CampusIn the event this information is protected by the Federal Confidentiality of Alcohol and Drug Abuse Patient Records regulations: The Federal rules restrict any use of the information to criminally investigate or prosecute any alcohol or drug abuse patient.[facility] CampusIn the event this information is protected by the Federal Confidentiality of Alcohol and Drug Abuse Patient Records regulations: The Federal rules restrict any use of the information to criminally investigate or prosecute any alcohol or drug abuse patient.[facility] CampusIn the event this information is protected by the Federal Confidentiality of Alcohol and Drug Abuse Patient Records regulations: The Federal rules restrict any use of the information to criminally investigate or prosecute any alcohol or drug abuse patient.[facility] CampusIn the event this information is protected by the Federal Confidentiality of Alcohol and Drug Abuse Patient Records regulations: The Federal rules restrict any use of the information to criminally investigate or prosecute any alcohol or drug abuse patient.[facility] CampusIn the event this information is protected by the Federal Confidentiality of Alcohol and Drug Abuse Patient Records regulations: The Federal rules restrict any use of the information to criminally investigate or prosecute any alcohol or drug abuse patient.[facility] CampusIn the event this information is protected by the Federal Confidentiality of Alcohol and Drug Abuse Patient Records regulations: The Federal rules restrict any use of the information to criminally investigate or prosecute any alcohol or drug abuse patient.[facility] CampusIn the event this information is protected by the Federal Confidentiality of Alcohol and Drug Abuse Patient Records regulations: The Federal rules restrict any use of the information to criminally investigate or prosecute any alcohol or drug abuse patient.[facility] CampusIn the event this information is protected by the Federal Confidentiality of Alcohol and Drug Abuse Patient Records regulations: The Federal rules restrict any use of the information to criminally investigate or prosecute any alcohol or drug abuse patient.[facility] CampusIn the event this information is protected by the Federal Confidentiality of Alcohol and Drug Abuse Patient Records regulations: The Federal rules restrict any use of the information to criminally investigate or prosecute any alcohol or drug abuse patient.[facility] CampusIn the event this information is protected by the Federal Confidentiality of Alcohol and Drug Abuse Patient Records regulations: The Federal rules restrict any use of the information to criminally investigate or prosecute any alcohol or drug abuse patient.[facility] CampusIn the event this information is protected by the Federal Confidentiality of Alcohol and Drug Abuse Patient Records regulations: The Federal rules restrict any use of the information to criminally investigate or prosecute any alcohol or drug abuse patient.[facility] CampusIn the event this information is protected by the Federal Confidentiality of Alcohol and Drug Abuse Patient Records regulations: The Federal rules restrict any use of the information to criminally investigate or prosecute any alcohol or drug abuse patient.[facility] CampusIn the event this information is protected by the Federal Confidentiality of Alcohol and Drug Abuse Patient Records regulations: The Federal rules restrict any use of the information to criminally investigate or prosecute any alcohol or drug abuse patient.[facility] CampusIn the event this information is protected by the Federal Confidentiality of Alcohol and Drug Abuse Patient Records regulations: The Federal rules restrict any use of the information to criminally investigate or prosecute any alcohol or drug abuse patient.[facility] CampusIn the event this information is protected by the Federal Confidentiality of Alcohol and Drug Abuse Patient Records regulations: The Federal rules restrict any use of the information to criminally investigate or prosecute any alcohol or drug abuse patient.[facility] CampusIn the event this information is protected by the Federal Confidentiality of Alcohol and Drug Abuse Patient Records regulations: The Federal rules restrict any use of the information to criminally investigate or prosecute any alcohol or drug abuse patient.[facility] CampusIn the event this information is protected by the Federal Confidentiality of Alcohol and Drug Abuse Patient Records regulations: The Federal rules restrict any use of the information to criminally investigate or prosecute any alcohol or drug abuse patient.[facility] CampusIn the event this information is protected by the Federal Confidentiality of Alcohol and Drug Abuse Patient Records regulations: The Federal rules restrict any use of the information to criminally investigate or prosecute any alcohol or drug abuse patient.[facility] CampusIn the event this information is protected by the Federal Confidentiality of Alcohol and Drug Abuse Patient Records regulations: The Federal rules restrict any use of the information to criminally investigate or prosecute any alcohol or drug abuse patient.[facility] CampusIn the event this information is protected by the Federal Confidentiality of Alcohol and Drug Abuse Patient Records regulations: The Federal rules restrict any use of the information to criminally investigate or prosecute any alcohol or drug abuse patient.[facility] the event this information is protected by the Federal Confidentiality of Alcohol and Drug Abuse Patient Records regulations: The Federal rules restrict any use of the information to criminally investigate or prosecute any alcohol or drug abuse patient.[facility] CampusIn the event this information is protected by the Federal Confidentiality of Alcohol and Drug Abuse Patient Records regulations: The Federal rules restrict any use of the information to criminally investigate or prosecute any alcohol or drug abuse patient.[facility] CampusIn the event this information is protected by the Federal Confidentiality of Alcohol and Drug Abuse Patient Records regulations: The Federal rules restrict any use of the information to criminally investigate or prosecute any alcohol or drug abuse patient.[facility] CampusIn the event this information is protected by the Federal Confidentiality of Alcohol and Drug Abuse Patient Records regulations: The Federal rules restrict any use of the information to criminally investigate or prosecute any alcohol or drug abuse patient.[facility] CampusIn the event this information is protected by the Federal Confidentiality of Alcohol and Drug Abuse Patient Records regulations: The Federal rules restrict any use of the information to criminally investigate or prosecute any alcohol or drug abuse patient.[facility] CampusIn the event this information is protected by the Federal Confidentiality of Alcohol and Drug Abuse Patient Records regulations: The Federal rules restrict any use of the information to criminally investigate or prosecute any alcohol or drug abuse patient.[facility] CampusIn the event this information is protected by the Federal Confidentiality of Alcohol and Drug Abuse Patient Records regulations: The Federal rules restrict any use of the information to criminally investigate or prosecute any alcohol or drug abuse patient.[facility] CampusIn the event this information is protected by the Federal Confidentiality of Alcohol and Drug Abuse Patient Records regulations: The Federal rules restrict any use of the information to criminally investigate or prosecute any alcohol or drug abuse patient.[facility] CampusIn the event this information is protected by the Federal Confidentiality of Alcohol and Drug Abuse Patient Records regulations: The Federal rules restrict any use of the information to criminally investigate or prosecute any alcohol or drug abuse patient.[facility] CampusIn the event this information is protected by the Federal Confidentiality of Alcohol and Drug Abuse Patient Records regulations: The Federal rules restrict any use of the information to criminally investigate or prosecute any alcohol or drug abuse patient.[facility] CampusIn the event this information is protected by the Federal Confidentiality of Alcohol and Drug Abuse Patient Records regulations: The Federal rules restrict any use of the information to criminally investigate or prosecute any alcohol or drug abuse patient.[facility] CampusIn the event this information is protected by the Federal Confidentiality of Alcohol and Drug Abuse Patient Records regulations: The Federal rules restrict any use of the information to criminally investigate or prosecute any alcohol or drug abuse patient.[facility] CampusIn the event this information is protected by the Federal Confidentiality of Alcohol and Drug Abuse Patient Records regulations: The Federal rules restrict any use of the information to criminally investigate or prosecute any alcohol or drug abuse patient.[facility] CampusIn the event this information is protected by the Federal Confidentiality of Alcohol and Drug Abuse Patient Records regulations: The Federal rules restrict any use of the information to criminally investigate or prosecute any alcohol or drug abuse patient.[facility] CampusIn the event this information is protected by the Federal Confidentiality of Alcohol and Drug Abuse Patient Records regulations: The Federal rules restrict any use of the information to criminally investigate or prosecute any alcohol or drug abuse patient.[facility] CampusIn the event this information is protected by the Federal Confidentiality of Alcohol and Drug Abuse Patient Records regulations: The Federal rules restrict any use of the information to criminally investigate or prosecute any alcohol or drug abuse patient.[facility] CampusIn the event this information is protected by the Federal Confidentiality of Alcohol and Drug Abuse Patient Records regulations: The Federal rules restrict any use of the information to criminally investigate or prosecute any alcohol or drug abuse patient.[facility] CampusIn the event this information is protected by the Federal Confidentiality of Alcohol and Drug Abuse Patient Records regulations: The Federal rules restrict any use of the information to criminally investigate or prosecute any alcohol or drug abuse patient.[facility] CampusIn the event this information is protected by the Federal Confidentiality of Alcohol and Drug Abuse Patient Records regulations: The Federal rules restrict any use of the information to criminally investigate or prosecute any alcohol or drug abuse patient.[facility] CampusIn the event this information is protected by the Federal Confidentiality of Alcohol and Drug Abuse Patient Records regulations: The Federal rules restrict any use of the information to criminally investigate or prosecute any alcohol or drug abuse patient.[facility] CampusIn the event this information is protected by the Federal Confidentiality of Alcohol and Drug Abuse Patient Records regulations: The Federal rules restrict any use of the information to criminally investigate or prosecute any alcohol or drug abuse patient.[facility] CampusIn the event this information is protected by the Federal Confidentiality of Alcohol and Drug Abuse Patient Records regulations: The Federal rules restrict any use of the information to criminally investigate or prosecute any alcohol or drug abuse patient.[facility] CampusIn the event this information is protected by the Federal Confidentiality of Alcohol and Drug Abuse Patient Records regulations: The Federal rules restrict any use of the information to criminally investigate or prosecute any alcohol or drug abuse patient.[facility] CampusIn the event this information is protected by the Federal Confidentiality of Alcohol and Drug Abuse Patient Records regulations: The Federal rules restrict any use of the information to criminally investigate or prosecute any alcohol or drug abuse patient.[facility] CampusIn the event this information is protected by the Federal Confidentiality of Alcohol and Drug Abuse Patient Records regulations: The Federal rules restrict any use of the information to criminally investigate or prosecute any alcohol or drug abuse patient.[facility] CampusIn the event this information is protected by the Federal Confidentiality of Alcohol and Drug Abuse Patient Records regulations: The Federal rules restrict any use of the information to criminally investigate or prosecute any alcohol or drug abuse patient.[facility] CampusIn the event this information is protected by the Federal Confidentiality of Alcohol and Drug Abuse Patient Records regulations: The Federal rules restrict any use of the information to criminally investigate or prosecute any alcohol or drug abuse patient.[facility] CampusIn the event this information is protected by the Federal Confidentiality of Alcohol and Drug Abuse Patient Records regulations: The Federal rules restrict any use of the information to criminally investigate or prosecute any alcohol or drug abuse patient.[facility] CampusIn the event this information is protected by the Federal Confidentiality of Alcohol and Drug Abuse Patient Records regulations: The Federal rules restrict any use of the information to criminally investigate or prosecute any alcohol or drug abuse patient.[facility] CampusIn the event this information is protected by the Federal Confidentiality of Alcohol and Drug Abuse Patient Records regulations: The Federal rules restrict any use of the information to criminally investigate or prosecute any alcohol or drug abuse patient.[facility] CampusIn the event this information is protected by the Federal Confidentiality of Alcohol and Drug Abuse Patient Records regulations: The Federal rules restrict any use of the information to criminally investigate or prosecute any alcohol or drug abuse patient.[facility] CampusIn the event this information is protected by the Federal Confidentiality of Alcohol and Drug Abuse Patient Records regulations: The Federal rules restrict any use of the information to criminally investigate or prosecute any alcohol or drug abuse patient.[facility] CampusIn the event this information is protected by the Federal Confidentiality of Alcohol and Drug Abuse Patient Records regulations: The Federal rules restrict any use of the information to criminally investigate or prosecute any alcohol or drug abuse patient.[facility] CampusIn the event this information is protected by the Federal Confidentiality of Alcohol and Drug Abuse Patient Records regulations: The Federal rules restrict any use of the information to criminally investigate or prosecute any alcohol or drug abuse patient.[facility] CampusIn the event this information is protected by the Federal Confidentiality of Alcohol and Drug Abuse Patient Records regulations: The Federal rules restrict any use of the information to criminally investigate or prosecute any alcohol or drug abuse patient.[facility] Reason for Visit (unrecogniz ed section and content) Reason Comments Home Care MD to follow Reason Comments Home Care Confirmation call Reason Comments Medication Problem Reason Comments Home Care Erroneous entry Reason Comments Home Care Erroneous entry. Reason Comments Home Care Unmade visit Reason Comments Home Care Confirmation Call Reason Comments Home Care Delay of PT eval hudson l Care Teams (unrecognized sec tion and content) Site Director Relationship Specialty Start Date End Date Dillon Norris DO [address] [place], [place] [id number] PCP - General Family Medicine 10/17/15 Mar Hoffman MD [address] [phone] Referring Internal Medicine 08/18/22 Dillon Norris DO [address] [place], [place] [id number] Home Care Provider Family Medicine 08/19/22 Rigoberto Romano, STANISLAW [address] [place] [address] Investor Relations Manager Post Acute Care 08/19/22 Site Director Relationship Specialty Start Date End Date Dillon Norris DO [address] [place], [place] [id number] PCP - General Family Medicine 10/17/15 Mar Hoffman MD 1 [facility], [address] [place] [phone] Referring Internal Medicine 08/18/22 Renetta Norrisa EvelinDO [address] [place] [address] Home Care Provider Family Medicine 08/19/22 Rigoberto Romano RN [address] [place], [place] [phone] Investor Relations Manager Post Acute Care 08/19/22 Site Director Relationship Specialty Start Date End Date Renetta Norrisa EvelinDO [address] [place] [address] PCP - General Family Medicine 10/17/15 Mar Hoffman MD 1 [facility] [address] [facility], [address] [place] [phone] Referring Internal Medicine 08/18/22 JrDillon DO [address] [place] [address] Home Care Provider Family Medicine 08/19/22 Rigoberto Romano RN [address] [place], [place] [phone] Investor Relations Manager Post Acute Care 08/19/22 Site Director Relationship Specialty Start Date End Date JrDillon DO [address] [place] [address] PCP - General Family Medicine 10/17/15 Mar Hoffman MD [address] [facility] [address] [facility], [address] [place] [phone] Referring Internal Medicine 08/18/22 JrDillon DO [address] [place] [address] Home Care Provider Family Medicine 08/19/22 Rigoberto Romano RN [address] [facility], [place] [phone] Investor Relations Manager Post Acute Care 08/19/22 Site Director Relationship Specialty Start Date End Date Dillon Norris [address] [place] [address] PCP - General Family Medicine 10/17/15 Mar Hoffman MD 1 [facility], [address] [place] [phone] Referring Internal Medicine 08/18/22 JrDillon DO [address] [place] [address] Home Care Provider Family Medicine 08/19/22 Rigoberto Romano RN 495[address] [facility], [place] [phone] Investor Relations Manager Post Acute Care 08/19/22 Site Director Relationship Specialty Start Date End Date JrDillon EvelinDO [address] [place] [address] PCP - General Family Medicine 10/17/15 Mar Hoffman MD 1 [facility], [address] [place] [phone] Referring Internal Medicine 08/18/22 AmadeoismaelDillon DO [address] [place] [address] Home Care Provider Family Medicine 08/19/22 Rigoberto Romano RN [address] [facility], [place] [phone] Investor Relations Manager Post Acute Care 08/19/22 Site Director Relationship Specialty Start Date End Date Dillon Norris DO [address] [place] [address] PCP - General Family Medicine 10/17/15 Mar Hoffman MD [address] [facility], [address] [place] [address] [phone] Referring Internal Medicine 08/18/22 Dillon Norris DO [address] [place] [address] Home Care Provider Family Medicine 08/19/22 Rigoberto Romano, STANISLAW [address] [place], [place] [phone] Investor Relations Manager Post Acute Care 08/19/22 Site Director Relationship Specialty Start Date End Date Dillon Norris DO [address] [place] [address] PCP - General Family Medicine 10/17/15 Mar Hoffman MD [address] [facility] [address] [facility], [address] [place] [phone] Referring Internal Medicine 08/18/22 Dillon Norris DO [address] [place] [address] Home Care Provider Family Medicine 08/19/22 Rigoberto Romano RN [address] [place], [place] [phone] Investor Relations Manager Post Acute Care 08/19/22 Site Director Relationship Specialty Start Date End Date Dillon Norris DO [address] [place] [address] PCP - General Family Medicine 10/17/15 Mar Hoffman MD [address] [facility] [address] [facility], [address] [place] [phone] Referring Internal Medicine 08/18/22 Dillon Norris DO [address] [place] [address] Home Care Provider Family Medicine 08/19/22 Rigoberto Romano RN [address] [facility] [place] [address] Investor Relations Manager Post Acute Care 08/19/22 Site Director Relationship Specialty Start Date End Date Dillon Norris DO [address] [place] [address] PCP - General Family Medicine 10/17/15 Mar Hoffman MD [address] [facility] [address] [facility], [address] [place] [address] [phone] Referring Internal Medicine 08/18/22 Jr Dillonevelin Waters DO [address] [place] [address] Home Care Provider Family Medicine 08/19/22 Rigoberto Romano RN [address] [facility], [place] [phone] Investor Relations Manager Post Acute Care 08/19/22 Site Director Relationship Specialty Start Date End Date Dillon NorrisDO [address] [place] [address] PCP - General Family Medicine 10/17/15 Mar Hoffman MD [address] [facility] [address] [facility], [address] [place] [phone] Referring Internal Medicine 08/18/22 JrDillon DO [address] [place] [address] Home Care Provider Family Medicine 08/19/22 Rigoberto Romano RN [address] [facility] [place] [address] Investor Relations Manager Post Acute Care 08/19/22 Site Director Relationship Specialty Start Date End Date Dillon Norris DO [address] [place], [place] [address] PCP - General Family Medicine 10/17/15 Mar Hoffman MD [address] [facility], [address] [place] [address] [phone] Referring Internal Medicine 08/18/22 Dillon Norris [address] [place] [address] Home Care Provider Family Medicine 08/19/22 Rigoberto Romano RN [address] [place], [place] [phone] Investor Relations Manager Post Acute Care 08/19/22 Site Director Relationship Specialty Start Date End Date Dillon Norris [address] [place] [address] PCP - General Family Medicine 10/17/15 Mar Hoffman MD [address] [facility], [address] [place] [address] [phone] Referring Internal Medicine 08/18/22 Dillon Norris [address] [place] [address] Home Care Provider Family Medicine 08/19/22 Rigoberto Romano RN [address] [place], [place] [phone] Investor Relations Manager Post Acute Care 08/19/22 Site Director Relationship Specialty Start Date End Date Dillon Norris [address] [place] [address] PCP - General Family Medicine 10/17/15 Mar Hoffman MD [address] [facility], [address] [place] [address] [phone] Referring Internal Medicine 08/18/22 Dillon Norris [address] [place] [address] Home Care Provider Family Medicine 08/19/22 Rigoberto Romano RN 6641 [facility], [place] [phone] Investor Relations Manager Post Acute Care 08/19/22 Site Director Relationship Specialty Start Date End Date Dillon Norris DO [address] [place] [address] PCP - General Family Medicine 10/17/15 Mar Hoffman MD 1 [facility], [address] [place] [address] [phone] Referring Internal Medicine 08/18/22 Jr Dillon EvelinDO [address] [place] [address] Home Care Provider Family Medicine 08/19/22 Rigoberto Romano RN 9921 [facility], [place] [phone] Investor Relations Manager Post Acute Care 08/19/22 Site Director Relationship Specialty Start Date End Date Dillon NorrisDO [address] [place] [address] PCP - General Family Medicine 10/17/15 Mar Hoffman MD 1 [facility], [address] [place] [address] [phone] Referring Internal Medicine 08/18/22 JrDillon DO [address] [place] [address] Home Care Provider Family Medicine 08/19/22 Rigoberto Romano RN 6771 [facility], [place] [phone] Investor Relations Manager Post Acute Care 08/19/22 Site Director Relationship Specialty Start Date End Date Renetta Norrisa EvelinDO [address] [place] [address] PCP - General Family Medicine 10/17/15 Mar Hoffman MD 1 [facility], [address] [place] [phone] Referring Internal Medicine 08/18/22 JrDillon DO [address] [place] [address] Home Care Provider Family Medicine 08/19/22 Rigoberto Romano RN 7751 [facility], [place] [phone] Investor Relations Manager Post Acute Care 08/19/22 Site Director Relationship Specialty Start Date End Date JrDillon DO [address] [place] [address] PCP - General Family Medicine 10/17/15 Mar Hoffman MD 1 [facility], [address] [place] [address] Referring Internal Medicine 08/18/22 Dillon Norris DO [address] [place] [address] Home Care Provider Family Medicine 08/19/22 Rigoberto Romano RN 7591 [facility], [place] [phone] Investor Relations Manager Post Acute Care 08/19/22 Site Director Relationship Specialty Start Date End Date AmadeoDillon guevara DO [address] [place] [address] PCP - General Family Medicine 10/17/15 Mar Hoffman MD [address] [facility], [address] [place] [address] [phone] Referring Internal Medicine 08/18/22 Dillon NorrisDO [address] [place] [address] Home Care Provider Family Medicine 08/19/22 Rigoberto Romano, STANISLAW [address] [place], [place] [phone] Investor Relations Manager Post Acute Care 08/19/22 Site Director Relationship Specialty Start Date End Date Dillon NorrisDO [address] [place] [address] PCP - General Family Medicine 10/17/15 Mar Hoffman MD [address] [facility] [facility], [address] [place] [address] [phone] Referring Internal Medicine 08/18/22 Renetta Norrisa EvelinDO [address] [place] [address] Home Care Provider Family Medicine 08/19/22 Rigoberto Romano RN [address] [place], [place] [phone] Investor Relations Manager Post Acute Care 08/19/22 Site Director Relationship Specialty Start Date End Date Jr Dillon EvelinDO [address] [place] [address] PCP - General Family Medicine 10/17/15 Mar Hoffman MD [address] [facility] [facility], [address] [place] [address] Referring Internal Medicine 08/18/22 Dillon Norris DO [address] [place] [address] Home Care Provider Family Medicine 08/19/22 Rigoberto Romano RN 6801 [facility], [place] [phone] Investor Relations Manager Post Acute Care 08/19/22 Site Director Relationship Specialty Start Date End Date JrDillon DO [address] [place] [address] PCP - General Family Medicine 10/17/15 Mar Hoffman MD 1 [facility], [address] [place] [address] [phone] Referring Internal Medicine 08/18/22 Dillon Norris DO [address] [place] [address] Home Care Provider Family Medicine 08/19/22 Rigoberto Romano RN 6801 [facility], [place] [phone] Investor Relations Manager Post Acute Care 08/19/22 Site Director Relationship Specialty Start Date End Date AmadeoismaelDillon DO [address] [place] [address] PCP - General Family Medicine 10/17/15 Mar Hoffman MD 1 [facility], [address] [place] [phone] Referring Internal Medicine 08/18/22 Dillon Norris DO [address] [place] [address] Home Care Provider Family Medicine 08/19/22 Rigoberto Romano RN [address] [place], [place] [phone] Investor Relations Manager Post Acute Care 08/19/22 Site Director Relationship Specialty Start Date End Date Dillon Norris DO [address] [place] [address] PCP - General Family Medicine 10/17/15 Mar Hoffman MD [address] [facility] [facility], [address] [place] [address] [phone] Referring Internal Medicine 08/18/22 Dillon Norris DO [address] [address] Home Care Provider Family Medicine 08/19/22 Rigoberto Romano RN [address] [place] [address] Investor Relations Manager Post Acute Care 08/19/22 Site Director Relationship Specialty Start Date End Date Dillon Norris DO [address] [place] [address] PCP - General Family Medicine 10/17/15 Mar Hoffman MD [address] [facility] [facility], [address] [place] [address] [phone] Referring Internal Medicine 08/18/22 Dillon Norris DO [address] [place] [address] Home Care Provider Family Medicine 08/19/22 Rigoberto Romano RN [address] [place], [place] [phone] Investor Relations Manager Post Acute Care 08/19/22 Site Director Relationship Specialty Start Date End Date Dillon Norris DO [address] [place], [place] [id number] PCP - General Family Medicine 10/17/15 Mar Hoffman MD [address] [facility] [facility], [address] [place] [address] [phone] Referring Internal Medicine 08/18/22 Dillon Norris DO [address] [place], [place] 19582691 Home Care Provider Family Medicine 08/19/22 Rigoberto Romano RN [address] [place], [place] [phone] Investor Relations Manager Post Acute Care 08/19/22 Site Director Relationship Specialty Start Date End Date Dillon Norris DO [address] [place], [place] [id number] PCP - General Family Medicine 10/17/15 Mar Hoffman MD [address] [facility], [address] [place] [address] [phone] Referring Internal Medicine 08/18/22 Dillon Norris DO [address] [place], [place] 92543691 Home Care Provider Family Medicine 08/19/22 Rigoberto Romano RN [address] [place] [address] Investor Relations Manager Post Acute Care 08/19/22 Site Director Relationship Specialty Start Date End Date Dillon Norris DO [address] [place], [place] 960571 PCP - General Family Medicine 10/17/15 Mar Hoffman MD [address] [facility], [address] [place] [address] [phone] Referring Internal Medicine 08/18/22 Dillon Norris DO [address] [place], [place] 771841 Home Care Provider Family Medicine 08/19/22 Rigoberto Romano RN [address] [place], [place] [phone] Investor Relations Manager Post Acute Care 08/19/22 Site Director Relationship Specialty Start Date End Date Dillon Norris DO [address] [place], [place] 881801 PCP - General Family Medicine 10/17/15 Mar Hoffman MD [address] [facility] [facility], [address] [place] [address] [phone] Referring Internal Medicine 08/18/22 Dillon Norris DO [address] [place], [place] 837621 Home Care Provider Family Medicine 08/19/22 Rigoberto Romano RN [address] [place] [address] Investor Relations Manager Post Acute Care 08/19/22 Site Director Relationship Specialty Start Date End Date Dillon Norris DO [address] [place], [place] 994471 PCP - General Family Medicine 10/17/15 Mar Hoffman MD [address] [facility] [facility], [address] [place] [address] [phone] Referring Internal Medicine 08/18/22 Dillon Norris DO [address] [place] [id number] Home Care Provider Family Medicine 08/19/22 Rigoberto Romano RN 6801 [facility], [place] [phone] Investor Relations Manager Post Acute Care 08/19/22 Site Director Relationship Specialty Start Date End Date JrDillon DO [address] [place], [place] 541921 PCP - General Family Medicine 10/17/15 Mar Hoffman MD 1 [facility], [address] [place] [address] [phone] Referring Internal Medicine 08/18/22 Dillon Norris DO [address] [place], [place] [phone] Home Care Provider Family Medicine 08/19/22 Rigoberto Romano RN 6801 [facility], [place] 2864531 Investor Relations Manager Post Acute Care 08/19/22 Site Director Relationship Specialty Start Date End Date JrDillon DO [address] [place], [place] 390061 PCP - General Family Medicine 10/17/15 Mar Hoffman MD 1 [facility], [address] [place] [address] [phone] Referring Internal Medicine 08/18/22 Dillon Norris DO [address] [place], [place] 09[address]11 Home Care Provider Family Medicine 08/19/22 Rigoberto Romano RN 6801 [facility] [place] [address] Investor Relations Manager Post Acute Care 08/19/22 Site Director Relationship Specialty Start Date End Date Dillon Norris DO [address] [place] 167171 PCP - General Family Medicine 10/17/15 Mar Hoffman MD 1 [facility], [address] [place] [address] [phone] Referring Internal Medicine 08/18/22 Dillon Norris DO [address] [place], [place] [id number] Home Care Provider Family Medicine 08/19/22 Rigoberto Romano RN [address] [place], [place] [phone] Investor Relations Manager Post Acute Care 08/19/22 Site Director Relationship Specialty Start Date End Date Dillon Norris DO [address] [place], [place] 304811 PCP - General Family Medicine 10/17/15 Mar Hoffman MD 1 [facility], [address] [place] [address] [phone] Referring Internal Medicine 08/18/22 Dillon Norris DO [address] [address] Home Care Provider Family Medicine 08/19/22 Rigoberto Romano RN [address] [place], [place] [phone] Investor Relations Manager Post Acute Care 08/19/22 Site Director Relationship Specialty Start Date End Date Dillon Norris DO [address] [place], [place] [id number] PCP - General Family Medicine 10/17/15 Mar Hoffman MD 1 [facility], [address] [place] [address] [phone] Referring Internal Medicine 08/18/22 Dillon Norris DO [address] [place] 78619691 Home Care Provider Family Medicine 08/19/22 Rigoberto Romano RN [address] [place] [address] Investor Relations Manager Post Acute Care 08/19/22 Site Director Relationship Specialty Start Date End Date Dillon Norris DO [address] [place], [place] 801[address] PCP - General Family Medicine 10/17/15 Mar Hoffman MD 1 [facility], [address] [place] [address] [phone] Referring Internal Medicine 08/18/22 Dillon Norris DO [address] [place], [place] 367791 Home Care Provider Family Medicine 08/19/22 Rigoberto Romano RN [address] [place] [address] Investor Relations Manager Post Acute Care 08/19/22 Mary Roberson MD [address] [phone] Referring Family Medicine 03/27/23 Site Director Relationship Specialty Start Date End Date Dillon Norris DO [address] [place], [place] 334531 PCP - General Family Medicine 10/17/15 Mar Hoffman MD 1 [facility], [address] [place] [address] [phone] Referring Internal Medicine 08/18/22 Dillon Norris DO [address] [place], [place] 339881 Home Care Provider Family Medicine 08/19/22 Rigoberto Romano RN [address] [place] [address] Investor Relations Manager Post Acute Care 08/19/22 Mary Roberson MD [address] [phone] Referring Family Medicine 03/27/23 Site Director Relationship Specialty Start Date End Date Dillon Norris DO [address] [place], [place] 845871 PCP - General Family Medicine 10/17/15 Mar Hoffman MD 1 [facility], [address] [place] [address] [phone] Referring Internal Medicine 08/18/22 Dillon Norris DO [address] [place], [place] [id number] Home Care Provider Family Medicine 08/19/22 Rigoberto Romano RN [address] [place] [address] Investor Relations Manager Post Acute Care 08/19/22 Mary Roberson MD [address] [phone] Referring Family Medicine 03/27/23 Site Director Relationship Specialty Start Date End Date Dillon Norris DO [address] [place] [address] PCP - General Family Medicine 10/17/15 Mar Hoffman MD [address] [facility] [address] [facility], [address] [place] [address] [phone] Referring Internal Medicine 08/18/22 Dillon Norris DO [address] [place], [place] 03303691 Home Care Provider Family Medicine 08/19/22 Rigoberto Romano, STANISLAW [address] [place], [place] [phone] Investor Relations Manager Post Acute Care 08/19/22 Mary Roberson MD [address] [phone] Referring Family Medicine 03/27/23 Site Director Relationship Specialty Start Date End Date Dillon Norris DO [address] [place] [address] PCP - General Family Medicine 10/17/15 Mar Hoffman MD [address] [facility] [address] [facility], [address] [place] [address] [phone] Referring Internal Medicine 08/18/22 Dillon Norris DO [address] [place], [place] 696151 Home Care Provider Family Medicine 08/19/22 Rigoberto Romano RN [address] [place] [address] Investor Relations Manager Post Acute Care 08/19/22 Mary Roberson MD [address] [phone] Referring Family Medicine 03/27/23 Site Director Relationship Specialty Start Date End Date Dillon Norris DO [address] [place], [place] 027921 PCP - General Family Medicine 10/17/15 Mar Hoffman MD 1 [facility] [address] [phone] Referring Internal Medicine 08/18/22 Dillon Norris DO [address] [place], [place] 999421 Home Care Provider Family Medicine 08/19/22 Rigoberto Romano RN [address] [place] [address] Investor Relations Manager Post Acute Care 08/19/22 Mary Roberson MD [address] [phone] Referring Family Medicine 03/27/23 Site Director Relationship Specialty Start Date End Date Dillon Norris DO [address] [place] [address] PCP - General Family Medicine 10/17/15 Mar Hoffman MD 1 [facility], [address] [place] [address] Referring Internal Medicine 08/18/22 Dillon Norris DO [address] [place] [address] Home Care Provider Family Medicine 08/19/22 Rigoberto Romano RN [address] [place], [place] [phone] Investor Relations Manager Post Acute Care 08/19/22 Mary Roberson MD [address] [phone] Referring Family Medicine 03/27/23 Site Director Relationship Specialty Start Date End Date Dillon Norris DO [address] [place] [address] PCP - General Family Medicine 10/17/15 Mar Hoffman MD 1 [facility], [address] [place] [address] Referring Internal Medicine 08/18/22 Dillon Norris DO [address] [place] [address] Home Care Provider Family Medicine 08/19/22 Rigoberto Romano RN [address] [place] [address] Investor Relations Manager Post Acute Care 08/19/22 Mary Roberson MD [address] [phone] Referring Family Medicine 03/27/23 Site Director Relationship Specialty Start Date End Date Dillon Norris DO Evelin [address] [place], [place] 020261 PCP - General Family Medicine 10/17/15 Mar Hoffman MD 1 [facility], [address] [place], [place] [phone] Referring Internal Medicine 08/18/22 AmadeoismaelDillon DO [address] [place], [place] 976761 Home Care Provider Family Medicine 08/19/22 Rigoberto Romano, RN [address] [place], [place] [phone] Investor Relations Manager Post Acute Care 08/19/22 Mary Roberson MD [address] [phone] Referring Family Medicine 03/27/23 FOR RECORDS PERTAINING TO PATIENTS WHO ARE OR HAVE BEEN ENROLLED IN A CHEMICAL DEPENDENCY/SUBSTANCEABUSE PROGRAM, SOME INFORMATION MAY BE OMITTED. This clinical summary was aggregated from multiple sources. Caution should be exercised in using it in the provision of clinical care. This summary normalizes information from multiple sources, and as a consequence, information in this document may materially change the coding, format and clinical context of patient data. In addition, data may be omitted in some cases. CLINICAL DECISIONS SHOULD BE BASED ON THE PRIMARY CLINICAL RECORDS. [employer] provides no warranty or guarantee of the accuracy or completeness of information in this document.
[2024-05-25 08:24] LABS: Erythrocyte Sedimentation Rate 52 mm/hr (0-20)
[2024-05-25 08:25] LABS: ALB/GLOB Ratio 0.6 RATIO (0.9-2.4); AST(SGOT) 10 U/L (15-37); Alanine Aminotransfer ALT/SGPT 30 U/L (16-61); Albumin, Serum 2.7 g/dL (3.2-5.0); Alkaline Phosphatase 122 U/L (45-117); Anion Gap 2 (5-15); BUN 15 mg/dL (7-18); BUN/Creat Ratio 13.4 RATIO (10-20); Calcium,Total 9.1 mg/dL (8.5-10.1); Chloride 103 mmol/L (98-107); Creatinine, Serum 1.12 mg/dL (0.70-1.30); EST Glomerular Filtration Rate 72 mL/min (>60); Est Glom Filt Rate - Afr Amer 88 mL/min (>60); Globulin 4.3 g/dL (2.2-4.2); Glucose 206 mg/dL (74-106); Potassium 4.5 mmol/L (3.5-5.1); Sodium Level 138 mmol/L (136-145)
[2024-05-25 08:27] LABS: Absolute Lymphocyte Count 2.55 X10^3/uL (0.83-4.51); Absolute Neutrophil Count 7.8 X10^3/uL (2.0-7.7); Basophil# 0.04 X10^3/uL; Basophil% 0.4 % (0-1); Eosinophil# 0.13 X10^3/uL; Eosinophils% 1.2 % (0-5); Hematocrit 36.8 % (40-54); Hemoglobin 10.2 g/dL (13.0-16.5); Lymphocyte # 2.55 X10^3/ul (0.83-4.51); Lymphocyte % 22.7 % (19-41); Mean Corp Hgb Conc 27.7 g/dL (32-36); Mean Corpuscular Hgb 23.7 pg (27.0-32.0); Mean Corpuscular Volume 85.6 fL (80-94); Mean Platelet Vol. 9.9 fl (6.2-12.0); Monocyte# 0.64 X10^3/uL; Monocyte% 5.7 % (0-10); NRBC Flagged by Analyzer 0 % (0-5); Neutrophil # 7.78 X10^3/uL (2.7-7.7); Neutrophil % 69.2 % (47-70); Platelet Count 270 K/mm3 (150-450); RBC Distribution Width CV 15.3 % (11.6-14.6); White Blood Count 11.2 K/mm3 (4.4-11.0)
== END | disposition home or self-care (01) ==
LOC: LAB 04:44
PROVIDERS: PCP Family Medicine; Visit Provider Family Medicine
DX: K61.0 Anal abscess (principal); I50.43 Acute on chronic combined systolic (congestive) and diastolic (congestive) heart failure; E11.9 Type 2 diabetes mellitus without complications; E03.9 Hypothyroidism, unspecified; E61.1 Iron deficiency; D64.9 Anemia, unspecified; Z51.81 Encounter for therapeutic drug level monitoring
CPT/HCPCS: 36415; 80053; 85025; 85652; 86140

== ENCOUNTER → 2024-06-01 | Outpatient (CLI) | payer MEDICAID, SELFPAY ==
[2024-06-01 08:38] LABS: Erythrocyte Sedimentation Rate 68 mm/hr (0-20)
[2024-06-01 08:41] LABS: Absolute Lymphocyte Count 2.69 X10^3/uL (0.83-4.51); Absolute Neutrophil Count 6.9 X10^3/uL (2.0-7.7); Basophil# 0.05 X10^3/uL; Basophil% 0.5 % (0-1); Eosinophil# 0.12 X10^3/uL; Eosinophils% 1.2 % (0-5); Hemoglobin 10.2 g/dL (13.0-16.5); Lymphocyte # 2.69 X10^3/ul (0.83-4.51); Lymphocyte % 26.2 % (19-41); Mean Corp Hgb Conc 28.3 g/dL (32-36); Mean Corpuscular Hgb 23.9 pg (27.0-32.0); Mean Corpuscular Volume 84.5 fL (80-94); Mean Platelet Vol. 10.3 fl (6.2-12.0); Monocyte# 0.48 X10^3/uL; Monocyte% 4.7 % (0-10); NRBC Flagged by Analyzer 0 % (0-5); Neutrophil # 6.87 X10^3/uL (2.7-7.7); Neutrophil % 66.9 % (47-70); Platelet Count 269 K/mm3 (150-450); RBC Distribution Width CV 15.1 % (11.6-14.6); RBC Distribution Width SD 46.5 fl (35.1-43.9); Red Blood Count 4.26 M/mm3 (4.6-6.2); White Blood Count 10.3 K/mm3 (4.4-11.0)
[2024-06-01 08:50] LABS: ALB/GLOB Ratio 0.6 RATIO (0.9-2.4); AST(SGOT) 18 U/L (15-37); Alanine Aminotransfer ALT/SGPT 27 U/L (16-61); Albumin, Serum 2.7 g/dL (3.2-5.0); Alkaline Phosphatase 111 U/L (45-117); Anion Gap 5 (5-15); BUN 21 mg/dL (7-18); BUN/Creat Ratio 17.8 RATIO (10-20); Calcium,Total 8.8 mg/dL (8.5-10.1); Chloride 100 mmol/L (98-107); Creatinine, Serum 1.18 mg/dL (0.70-1.30); EST Glomerular Filtration Rate 68 mL/min (>60); Est Glom Filt Rate - Afr Amer 83 mL/min (>60); Globulin 4.3 g/dL (2.2-4.2); Glucose 203 mg/dL (74-106); Potassium 4.1 mmol/L (3.5-5.1); Sodium Level 137 mmol/L (136-145)
== END | disposition home or self-care (01) ==
PROVIDERS: PCP Family Medicine; Visit Provider Family Medicine
DX: R53.83 Other fatigue (principal); I50.43 Acute on chronic combined systolic (congestive) and diastolic (congestive) heart failure; E11.9 Type 2 diabetes mellitus without complications; E24.9 Cushing's syndrome, unspecified; K81.0 Acute cholecystitis; E03.9 Hypothyroidism, unspecified; Z51.81 Encounter for therapeutic drug level monitoring; D64.9 Anemia, unspecified; E61.1 Iron deficiency
CPT/HCPCS: 36415; 80053; 82533; 85025; 85652; 86140

== ENCOUNTER → 2024-06-08 | Outpatient (CLI) | payer MEDICAID, SELFPAY ==
[2024-06-08 08:14] LABS: ALB/GLOB Ratio 0.7 RATIO (0.9-2.4); AST(SGOT) 15 U/L (15-37); Alanine Aminotransfer ALT/SGPT 28 U/L (16-61); Albumin, Serum 2.9 g/dL (3.2-5.0); Alkaline Phosphatase 119 U/L (45-117); Anion Gap 3 (5-15); BUN 21 mg/dL (7-18); BUN/Creat Ratio 18.1 RATIO (10-20); Chloride 100 mmol/L (98-107); Creatinine, Serum 1.16 mg/dL (0.70-1.30); EST Glomerular Filtration Rate 70 mL/min (>60); Est Glom Filt Rate - Afr Amer 84 mL/min (>60); Globulin 4.1 g/dL (2.2-4.2); Glucose 262 mg/dL (74-106); Potassium 3.9 mmol/L (3.5-5.1); Sodium Level 138 mmol/L (136-145)
[2024-06-08 08:19] LABS: Erythrocyte Sedimentation Rate 28 mm/hr (0-20)
[2024-06-08 08:22] LABS: Absolute Lymphocyte Count 1.93 X10^3/uL (0.83-4.51); Absolute Neutrophil Count 7.3 X10^3/uL (2.0-7.7); Basophil# 0.05 X10^3/uL; Basophil% 0.5 % (0-1); Eosinophil# 0.14 X10^3/uL; Eosinophils% 1.4 % (0-5); Hematocrit 36.4 % (40-54); Hemoglobin 10.3 g/dL (13.0-16.5); Lymphocyte # 1.93 X10^3/ul (0.83-4.51); Lymphocyte % 19.3 % (19-41); Mean Corp Hgb Conc 28.3 g/dL (32-36); Mean Corpuscular Hgb 24.3 pg (27.0-32.0); Mean Corpuscular Volume 85.8 fL (80-94); Mean Platelet Vol. 10.2 fl (6.2-12.0); Monocyte# 0.52 X10^3/uL; Monocyte% 5.2 % (0-10); NRBC Flagged by Analyzer 0 % (0-5); Neutrophil # 7.31 X10^3/uL (2.7-7.7); Platelet Count 248 K/mm3 (150-450); RBC Distribution Width CV 15.1 % (11.6-14.6); RBC Distribution Width SD 47.3 fl (35.1-43.9); Red Blood Count 4.24 M/mm3 (4.6-6.2)
== END | disposition home or self-care (01) ==
LOC: LAB 03:54
PROVIDERS: PCP Family Medicine; Visit Provider Family Medicine
DX: Z51.81 Encounter for therapeutic drug level monitoring (principal); I50.42 Chronic combined systolic (congestive) and diastolic (congestive) heart failure; E11.9 Type 2 diabetes mellitus without complications; K61.0 Anal abscess; E06.9 Thyroiditis, unspecified; E61.1 Iron deficiency; D64.9 Anemia, unspecified
CPT/HCPCS: 36415; 80053; 85025; 85652; 86140

== ENCOUNTER → 2024-06-15 | Outpatient (CLI) | payer MEDICAID, SELFPAY ==
[2024-06-15 08:30] LABS: Erythrocyte Sedimentation Rate 89 mm/hr (0-20)
[2024-06-15 08:32] LABS: Absolute Lymphocyte Count 2.03 X10^3/uL (0.83-4.51); Basophil# 0.05 X10^3/uL; Basophil% 0.4 % (0-1); Eosinophil# 0.12 X10^3/uL; Hematocrit 37.1 % (40-54); Hemoglobin 10.6 g/dL (13.0-16.5); Lymphocyte # 2.03 X10^3/ul (0.83-4.51); Lymphocyte % 17.1 % (19-41); Mean Corp Hgb Conc 28.6 g/dL (32-36); Mean Corpuscular Hgb 24.1 pg (27.0-32.0); Mean Corpuscular Volume 84.5 fL (80-94); Mean Platelet Vol. 10.7 fl (6.2-12.0); Monocyte# 0.54 X10^3/uL; Monocyte% 4.6 % (0-10); NRBC Flagged by Analyzer 0 % (0-5); Neutrophil # 9.04 X10^3/uL (2.7-7.7); Neutrophil % 76.2 % (47-70); Platelet Count 255 K/mm3 (150-450); RBC Distribution Width CV 14.9 % (11.6-14.6); RBC Distribution Width SD 45.9 fl (35.1-43.9); Red Blood Count 4.39 M/mm3 (4.6-6.2); White Blood Count 11.9 K/mm3 (4.4-11.0)
[2024-06-15 11:56] LABS: ALB/GLOB Ratio 0.6 RATIO (0.9-2.4); AST(SGOT) 13 U/L (15-37); Alanine Aminotransfer ALT/SGPT 30 U/L (16-61); Albumin, Serum 2.8 g/dL (3.2-5.0); Alkaline Phosphatase 120 U/L (45-117); Anion Gap 5 (5-15); BUN 16 mg/dL (7-18); BUN/Creat Ratio 13.7 RATIO (10-20); Calcium,Total 9.1 mg/dL (8.5-10.1); Chloride 102 mmol/L (98-107); Creatinine, Serum 1.17 mg/dL (0.70-1.30); EST Glomerular Filtration Rate 69 mL/min (>60); Est Glom Filt Rate - Afr Amer 83 mL/min (>60); Globulin 4.5 g/dL (2.2-4.2); Glucose 246 mg/dL (74-106); Potassium 3.8 mmol/L (3.5-5.1); Protein, Total 7.3 g/dL (6.4-8.2); Sodium Level 138 mmol/L (136-145)
== END | disposition home or self-care (01) ==
LOC: LAB 04:03
PROVIDERS: PCP Family Medicine; Referring Provider Family Medicine; Visit Provider Family Medicine
DX: K61.0 Anal abscess (principal); I50.43 Acute on chronic combined systolic (congestive) and diastolic (congestive) heart failure; E11.9 Type 2 diabetes mellitus without complications; E03.9 Hypothyroidism, unspecified; E61.1 Iron deficiency; D64.9 Anemia, unspecified; Z51.81 Encounter for therapeutic drug level monitoring
CPT/HCPCS: 36415; 80053; 85025; 85652; 86140

== ENCOUNTER → 2024-06-22 | Outpatient (CLI) | payer MEDICAID, SELFPAY ==
[2024-06-22 08:38] LABS: Erythrocyte Sedimentation Rate 32 mm/hr (0-20)
[2024-06-22 08:40] LABS: Absolute Lymphocyte Count 2.14 X10^3/uL (0.83-4.51); Absolute Neutrophil Count 6.7 X10^3/uL (2.0-7.7); Basophil# 0.04 X10^3/uL; Basophil% 0.4 % (0-1); Eosinophil# 0.12 X10^3/uL; Eosinophils% 1.3 % (0-5); Hematocrit 33.7 % (40-54); Hemoglobin 9.4 g/dL (13.0-16.5); Lymphocyte # 2.14 X10^3/ul (0.83-4.51); Lymphocyte % 22.4 % (19-41); Mean Corp Hgb Conc 27.9 g/dL (32-36); Mean Corpuscular Hgb 23.9 pg (27.0-32.0); Mean Corpuscular Volume 85.8 fL (80-94); Mean Platelet Vol. 10.1 fl (6.2-12.0); Monocyte# 0.48 X10^3/uL; NRBC Flagged by Analyzer 0 % (0-5); Neutrophil # 6.71 X10^3/uL (2.7-7.7); Neutrophil % 70.3 % (47-70); Platelet Count 248 K/mm3 (150-450); RBC Distribution Width CV 14.9 % (11.6-14.6); Red Blood Count 3.93 M/mm3 (4.6-6.2); White Blood Count 9.6 K/mm3 (4.4-11.0)
[2024-06-22 09:47] LABS: ALB/GLOB Ratio 0.6 RATIO (0.9-2.4); AST(SGOT) 18 U/L (15-37); Alanine Aminotransfer ALT/SGPT 28 U/L (16-61); Albumin, Serum 2.5 g/dL (3.2-5.0); Alkaline Phosphatase 111 U/L (45-117); Anion Gap 4 (5-15); BUN 13 mg/dL (7-18); BUN/Creat Ratio 12.6 RATIO (10-20); Calcium,Total 8.8 mg/dL (8.5-10.1); Chloride 101 mmol/L (98-107); Creatinine, Serum 1.03 mg/dL (0.70-1.30); EST Glomerular Filtration Rate 80 mL/min (>60); Est Glom Filt Rate - Afr Amer 97 mL/min (>60); Glucose 214 mg/dL (74-106); Potassium 3.8 mmol/L (3.5-5.1); Protein, Total 6.5 g/dL (6.4-8.2); Sodium Level 138 mmol/L (136-145); T4 Free Direct 0.99 ng/dL (0.76-1.46)
== END | disposition home or self-care (01) ==
LOC: LAB 03:33
PROVIDERS: PCP Family Medicine; Referring Provider Family Medicine; Visit Provider Family Medicine
DX: I83.019 Varicose veins of right lower extremity with ulcer of unspecified site (principal); M06.9 Rheumatoid arthritis, unspecified; E11.9 Type 2 diabetes mellitus without complications; K61.0 Anal abscess; E03.9 Hypothyroidism, unspecified; Z51.81 Encounter for therapeutic drug level monitoring
CPT/HCPCS: 36415; 80053; 83036; 84439; 84443; 84481; 85025; 85652; 86140

== ENCOUNTER 2024-06-29 10:32 | Inpatient (IN) | payer MEDICAID, SELFPAY ==
[2024-06-29] VITALS (9 sets, daily range): BP systolic 109–168; BP diastolic 69–103; PULSE 80–92; RESP 16–22; TEMP 36.1–36.7; O2SAT 90–100; BMI 69.6; BMI 66.0
[2024-06-29 11:33] LABS: BNP,B-Type NATRIURETIC PEPTIDE 32.6 pg/mL (0-100)
[2024-06-29] MEDS: Bumetanide 1 MG/4 ML Vial 2 MG IV (11:50)
[2024-06-29] MEDS: diazePAM 5 MG Tablet PO ×2 (12:50→18:12)
[2024-06-29 15:07] LABS: Troponin-I HS 18 pg/mL (3.0-78.0)
[2024-06-29] MEDS: Furosemide 500 MG in Empty Viaflex 50 mL 1 EACH CONT INF (15:11)
[2024-06-29] MEDS: 0.9% Saline Lock 10 ML Syringe IV (15:13)
[2024-06-29 16:48] LABS: Bedside Glucose 106 mg/dL (74-106)
[2024-06-29 17:29] LABS: Troponin-I HS 19 pg/mL (3.0-78.0)
[2024-06-29] MEDS: Gabapentin 100 MG Capsule PO (18:12)
[2024-06-29 21:13] LABS: Troponin-I HS 19 pg/mL (3.0-78.0)
[2024-06-29] MEDS: Dabigatran Etexilate Mesylate 150 MG Capsule PO (21:38)
[2024-06-29] MEDS: Metoprolol Tartrate 25 MG Tablet 12.5 MG PO (21:38)
[2024-06-29] MEDS: Nystatin Powder 15gm Bottle 1 APPLIC TOPICAL (21:39)
[2024-06-29] MEDS: Pantoprazole Sodium 20 MG Tablet PO (21:39)
[2024-06-29] MEDS: Atorvastatin Calcium 40 MG Tablet PO (21:40)
[2024-06-29] MEDS: Losartan Potassium 25 MG Tablet 12.5 MG PO (21:40)
[2024-06-29] MEDS: Ammonium Lactate 225 gm Bottle 1 APPLIC TOPICAL (21:43)
[2024-06-30] VITALS (8 sets, daily range): BP systolic 119–150; BP diastolic 63–76; PULSE 83–91; RESP 18; TEMP 36.3–36.6; O2SAT 94–98
[2024-06-30] MEDS: predniSONE 10 MG Tablet PO ×3 (00:48→16:31)
[2024-06-30 00:49] LABS: Bedside Glucose 134 mg/dL (74-106)
[2024-06-30] MEDS: Levothyroxine 150 MCG Tablet PO (05:50)
[2024-06-30] MEDS: Levothyroxine 88 MCG Tablet PO (06:54)
[2024-06-30 07:13] LABS: Bedside Glucose 199 mg/dL (74-106)
[2024-06-30 07:24] LABS: Absolute Neutrophil Count 7.1 X10^3/uL (2.0-7.7); Basophil# 0.05 X10^3/uL; Basophil% 0.5 % (0-1); Eosinophil# 0.12 X10^3/uL; Eosinophils% 1.3 % (0-5); Hematocrit 34.8 % (40-54); Hemoglobin 9.9 g/dL (13.0-16.5); Mean Corp Hgb Conc 28.4 g/dL (32-36); Mean Corpuscular Hgb 23.7 pg (27.0-32.0); Mean Corpuscular Volume 83.5 fL (80-94); Mean Platelet Vol. 10.3 fl (6.2-12.0); Monocyte# 0.52 X10^3/uL; Monocyte% 5.5 % (0-10); NRBC Flagged by Analyzer 0 % (0-5); Neutrophil # 7.07 X10^3/uL (2.7-7.7); Neutrophil % 75.2 % (47-70); Platelet Count 270 K/mm3 (150-450); RBC Distribution Width SD 45.7 fl (35.1-43.9); Red Blood Count 4.17 M/mm3 (4.6-6.2); White Blood Count 9.4 K/mm3 (4.4-11.0)
[2024-06-30 07:48] LABS: Anion Gap 8 (5-15); BUN 18 mg/dL (7-18); BUN/Creat Ratio 14.3 RATIO (10-20); Calcium,Total 8.8 mg/dL (8.5-10.1); Chloride 98 mmol/L (98-107); Creatinine, Serum 1.26 mg/dL (0.70-1.30); EST Glomerular Filtration Rate 63 mL/min (>60); Est Glom Filt Rate - Afr Amer 76 mL/min (>60); Glucose 197 mg/dL (74-106); Potassium 3.4 mmol/L (3.5-5.1); Sodium Level 139 mmol/L (136-145)
[2024-06-30] MEDS: 0.9% Saline Lock 10 ML Syringe IV ×2 (09:05→14:09)
[2024-06-30] MEDS: Losartan Potassium 25 MG Tablet 12.5 MG PO ×2 (09:06→20:37)
[2024-06-30] MEDS: Dabigatran Etexilate Mesylate 150 MG Capsule PO ×2 (09:06→20:40)
[2024-06-30] MEDS: Metoprolol Tartrate 25 MG Tablet 12.5 MG PO ×2 (09:07→20:39)
[2024-06-30] MEDS: Ascorbic Acid 500 MG Tablet PO (09:07)
[2024-06-30] MEDS: Aspirin E.C. 81 MG Tablet PO (09:07)
[2024-06-30] MEDS: Pantoprazole Sodium 20 MG Tablet PO ×2 (09:07→20:40)
[2024-06-30] MEDS: Menthol/Lanolin/Calamine/Znox 113 GM Tube 1 APPLIC TOPICAL ×2 (09:09→20:37)
[2024-06-30] MEDS: Nystatin Powder 15gm Bottle 1 APPLIC TOPICAL ×2 (09:10→20:41)
[2024-06-30] MEDS: Ammonium Lactate 225 gm Bottle 1 APPLIC TOPICAL ×2 (09:10→20:40)
[2024-06-30 12:28] LABS: Bedside Glucose 173 mg/dL (74-106)
[2024-06-30] MEDS: Ursodiol 250 MG Tablet PO ×2 (14:10→20:39)
[2024-06-30] MEDS: diazePAM 5 MG Tablet PO (14:45)
[2024-06-30] MEDS: Vitamins A and D Ointment 1 APPLIC TOPICAL (14:48)
[2024-06-30 15:03] LABS: Bacteria 0 SEEN /hpf (None Seen); Mucous, Urine 0 SEEN /hpf (<or=2+); Red Blood Cells-Urine 0 SEEN /hpf (0-5); Squamous Epithelial Cells - UA 0 SEEN /hpf (0-5); White Blood Cells 0 SEEN /hpf (0-5)
[2024-06-30 15:05] LABS: Color, Urine Yellow (Yellow); Glucose, Dipstick Normal (Normal); Ketone-Dipstick Negative (Negative); Leukocyte Esterase-Dipstick 25 /ul (Negative); Nitrite-Dipstick Negative (Negative); Occult Blood-Urine Negative /ul (Negative); Protein-Dipstick Negative (Negative); Urine Bilirubin Dipstick Negative (Negative); Urine Clarity Clear (Clear); Urine Urobilinogen Normal (Normal); Urine pH 6.5 (5.0 - 8.0)
[2024-06-30] MEDS: Atorvastatin Calcium 40 MG Tablet PO (20:39)
[2024-06-30] MEDS: Cefdinir 300 MG Capsule PO (20:39)
[2024-06-30] MEDS: Gabapentin 100 MG Capsule PO (20:52)
[2024-07-01] VITALS (8 sets, daily range): BP systolic 127–166; BP diastolic 75–77; PULSE 78–87; RESP 18–20; TEMP 36.6–36.7; O2SAT 81–99
[2024-07-01] MEDS: Levothyroxine 150 MCG Tablet PO (06:21)
[2024-07-01] MEDS: Levothyroxine 88 MCG Tablet PO (06:21)
[2024-07-01 08:26] LABS: Absolute Lymphocyte Count 2.88 X10^3/uL (0.83-4.51); Absolute Neutrophil Count 7.7 X10^3/uL (2.0-7.7); Basophil# 0.06 X10^3/uL; Basophil% 0.5 % (0-1); Eosinophil# 0.15 X10^3/uL; Eosinophils% 1.3 % (0-5); Hematocrit 35.8 % (40-54); Hemoglobin 10.1 g/dL (13.0-16.5); Lymphocyte # 2.88 X10^3/ul (0.83-4.51); Lymphocyte % 24.8 % (19-41); Mean Corp Hgb Conc 28.2 g/dL (32-36); Mean Corpuscular Hgb 23.4 pg (27.0-32.0); Mean Corpuscular Volume 83.1 fL (80-94); Mean Platelet Vol. 9.7 fl (6.2-12.0); Monocyte# 0.75 X10^3/uL; Monocyte% 6.4 % (0-10); NRBC Flagged by Analyzer 0 % (0-5); Neutrophil # 7.73 X10^3/uL (2.7-7.7); Neutrophil % 66.5 % (47-70); Platelet Count 279 K/mm3 (150-450); RBC Distribution Width SD 45.4 fl (35.1-43.9); Red Blood Count 4.31 M/mm3 (4.6-6.2); White Blood Count 11.6 K/mm3 (4.4-11.0)
[2024-07-01] MEDS: Losartan Potassium 25 MG Tablet 12.5 MG PO (09:20)
[2024-07-01] MEDS: Furosemide 20 MG Tablet 60 MG PO (09:20)
[2024-07-01] MEDS: Aspirin E.C. 81 MG Tablet PO (09:21)
[2024-07-01] MEDS: Ascorbic Acid 500 MG Tablet PO (09:21)
[2024-07-01] MEDS: predniSONE 10 MG Tablet PO (09:21)
[2024-07-01] MEDS: Ammonium Lactate 225 gm Bottle 1 APPLIC TOPICAL (09:22)
[2024-07-01] MEDS: Menthol/Lanolin/Calamine/Znox 113 GM Tube 1 APPLIC TOPICAL (09:22)
[2024-07-01] MEDS: Metoprolol Tartrate 25 MG Tablet 12.5 MG PO (09:23)
[2024-07-01] MEDS: Nystatin Powder 15gm Bottle 1 APPLIC TOPICAL (09:23)
[2024-07-01] MEDS: Dabigatran Etexilate Mesylate 150 MG Capsule PO (09:25)
[2024-07-01] MEDS: Ursodiol 250 MG Tablet PO (09:25)
[2024-07-01] MEDS: Pantoprazole Sodium 20 MG Tablet PO (09:26)
[2024-07-01 09:59] LABS: Anion Gap 7 (5-15); BUN 20 mg/dL (7-18); BUN/Creat Ratio 14.3 RATIO (10-20); Calcium,Total 8.6 mg/dL (8.5-10.1); Chloride 96 mmol/L (98-107); EST Glomerular Filtration Rate 56 mL/min (>60); Est Glom Filt Rate - Afr Amer 68 mL/min (>60); Estimated Creatinine Clearance 118.44 ml/min; Glucose 170 mg/dL (74-106); Potassium 3.1 mmol/L (3.5-5.1); Sodium Level 138 mmol/L (136-145)
[2024-07-01] MEDS: Potassium Chloride Oral Tablet 20 MEQ 40 MEQ PO (12:26)
== END 2024-07-01 16:24 | disposition home health service (06) | DRG 425 ==
LOC: ED 11:21 → PCU 13:32
PROVIDERS: Admitting Provider Student in an Organized Health Care Education/Training Program; Emergency Provider Emergency Medicine; PCP Family Medicine; Visit Provider Student in an Organized Health Care Education/Training Program
DX: E87.70 Fluid overload, unspecified (principal); R62.7 Adult failure to thrive; I83.019 Varicose veins of right lower extremity with ulcer of unspecified site; J96.11 Chronic respiratory failure with hypoxia; K61.0 Anal abscess; Z99.81 Dependence on supplemental oxygen; E66.01 Morbid (severe) obesity due to excess calories; J44.9 Chronic obstructive pulmonary disease, unspecified; E11.9 Type 2 diabetes mellitus without complications; M06.9 Rheumatoid arthritis, unspecified; E03.9 Hypothyroidism, unspecified; I10 Essential (primary) hypertension; I48.91 Unspecified atrial fibrillation; Z68.44 Body mass index [BMI] 60.0-69.9, adult; K21.9 Gastro-esophageal reflux disease without esophagitis; I25.10 Atherosclerotic heart disease of native coronary artery without angina pectoris; E78.5 Hyperlipidemia, unspecified; G47.33 Obstructive sleep apnea (adult) (pediatric); E87.6 Hypokalemia; I25.2 Old myocardial infarction; F41.9 Anxiety disorder, unspecified; Z79.52 Long term (current) use of systemic steroids; Z87.891 Personal history of nicotine dependence; Z79.890 Hormone replacement therapy; Z95.5 Presence of coronary angioplasty implant and graft; Z79.84 Long term (current) use of oral hypoglycemic drugs; R60.1 Generalized edema; Z51.81 Encounter for therapeutic drug level monitoring; Z95.0 Presence of cardiac pacemaker; Z99.89 Dependence on other enabling machines and devices; Z79.82 Long term (current) use of aspirin; Z79.899 Other long term (current) drug therapy; Z79.51 Long term (current) use of inhaled steroids
CPT/HCPCS: 36415; 71045; 80048; 80053; 81001; 82962; 83880; 84484; 85025; 85652; 86140; 93005; 93306; 97162; 97166; 97530; 97802; 99285; Q9957; A4216; C8929; J1940

== ENCOUNTER → 2024-06-29 | Outpatient (CLI) | payer MEDICAID, SELFPAY ==
[2024-06-29 08:05] LABS: Erythrocyte Sedimentation Rate 37 mm/hr (0-20)
[2024-06-29 08:06] LABS: Absolute Lymphocyte Count 2.05 X10^3/uL (0.83-4.51); Absolute Neutrophil Count 7.3 X10^3/uL (2.0-7.7); Basophil# 0.04 X10^3/uL; Basophil% 0.4 % (0-1); Eosinophil# 0.11 X10^3/uL; Eosinophils% 1.1 % (0-5); Hematocrit 34.2 % (40-54); Hemoglobin 9.6 g/dL (13.0-16.5); Lymphocyte # 2.05 X10^3/ul (0.83-4.51); Lymphocyte % 20.4 % (19-41); Mean Corp Hgb Conc 28.1 g/dL (32-36); Mean Corpuscular Volume 85.5 fL (80-94); Mean Platelet Vol. 10.2 fl (6.2-12.0); Monocyte# 0.46 X10^3/uL; Monocyte% 4.6 % (0-10); NRBC Flagged by Analyzer 0 % (0-5); Neutrophil % 72.6 % (47-70); Platelet Count 246 K/mm3 (150-450); RBC Distribution Width SD 46.6 fl (35.1-43.9); White Blood Count 10.1 K/mm3 (4.4-11.0)
[2024-06-29 08:09] LABS: ALB/GLOB Ratio 0.6 RATIO (0.9-2.4); AST(SGOT) 16 U/L (15-37); Alanine Aminotransfer ALT/SGPT 26 U/L (16-61); Albumin, Serum 2.6 g/dL (3.2-5.0); Alkaline Phosphatase 112 U/L (45-117); Anion Gap 4 (5-15); BUN 20 mg/dL (7-18); BUN/Creat Ratio 17.2 RATIO (10-20); Calcium,Total 8.7 mg/dL (8.5-10.1); Chloride 103 mmol/L (98-107); Creatinine, Serum 1.16 mg/dL (0.70-1.30); EST Glomerular Filtration Rate 70 mL/min (>60); Est Glom Filt Rate - Afr Amer 84 mL/min (>60); Globulin 4.1 g/dL (2.2-4.2); Glucose 227 mg/dL (74-106); Potassium 4.1 mmol/L (3.5-5.1); Protein, Total 6.7 g/dL (6.4-8.2); Sodium Level 139 mmol/L (136-145)
== END | disposition home or self-care (01) ==
LOC: LAB 04:13
PROVIDERS: PCP Family Medicine; Visit Provider Family Medicine
DX: I83.019 Varicose veins of right lower extremity with ulcer of unspecified site (principal); M06.9 Rheumatoid arthritis, unspecified; K61.0 Anal abscess; Z51.81 Encounter for therapeutic drug level monitoring
CPT/HCPCS: 36415; 80053; 85025; 85652; 86140; P9604

== ENCOUNTER → 2024-07-06 | Outpatient (CLI) | payer MEDICAID, SELFPAY ==
[2024-07-06 09:23] LABS: ALB/GLOB Ratio 0.7 RATIO (0.9-2.4); AST(SGOT) 15 U/L (15-37); Alanine Aminotransfer ALT/SGPT 35 U/L (16-61); Albumin, Serum 2.9 g/dL (3.2-5.0); Alkaline Phosphatase 123 U/L (45-117); Anion Gap 6 (5-15); BUN 19 mg/dL (7-18); BUN/Creat Ratio 13.6 RATIO (10-20); Calcium,Total 8.8 mg/dL (8.5-10.1); Chloride 96 mmol/L (98-107); EST Glomerular Filtration Rate 56 mL/min (>60); Erythrocyte Sedimentation Rate 56 mm/hr (0-20); Est Glom Filt Rate - Afr Amer 68 mL/min (>60); Globulin 4.4 g/dL (2.2-4.2); Glucose 306 mg/dL (74-106); Potassium 3.6 mmol/L (3.5-5.1); Protein, Total 7.3 g/dL (6.4-8.2); Sodium Level 136 mmol/L (136-145)
[2024-07-06 09:25] LABS: Absolute Lymphocyte Count 2.67 X10^3/uL (0.83-4.51); Basophil# 0.06 X10^3/uL; Basophil% 0.5 % (0-1); Eosinophil# 0.16 X10^3/uL; Eosinophils% 1.4 % (0-5); Hematocrit 36.7 % (40-54); Hemoglobin 10.2 g/dL (13.0-16.5); Lymphocyte # 2.67 X10^3/ul (0.83-4.51); Lymphocyte % 23.1 % (19-41); Mean Corp Hgb Conc 27.8 g/dL (32-36); Mean Corpuscular Hgb 23.8 pg (27.0-32.0); Mean Corpuscular Volume 85.5 fL (80-94); Mean Platelet Vol. 10.2 fl (6.2-12.0); Monocyte# 0.58 X10^3/uL; NRBC Flagged by Analyzer 0 % (0-5); Neutrophil # 7.96 X10^3/uL (2.7-7.7); Platelet Count 307 K/mm3 (150-450); RBC Distribution Width CV 15.7 % (11.6-14.6); RBC Distribution Width SD 47.2 fl (35.1-43.9); Red Blood Count 4.29 M/mm3 (4.6-6.2); White Blood Count 11.5 K/mm3 (4.4-11.0)
== END | disposition home or self-care (01) ==
LOC: LAB 08:30
PROVIDERS: PCP Family Medicine; Referring Provider Family Medicine; Visit Provider Family Medicine
DX: I83.019 Varicose veins of right lower extremity with ulcer of unspecified site (principal); M06.4 Inflammatory polyarthropathy; K61.0 Anal abscess; Z51.81 Encounter for therapeutic drug level monitoring
CPT/HCPCS: 36415; 80053; 85025; 85652; 86140

== ENCOUNTER → 2024-07-13 | Outpatient (CLI) | payer MEDICAID, SELFPAY ==
[2024-07-13 07:55] LABS: Absolute Lymphocyte Count 2.02 X10^3/uL (0.83-4.51); Absolute Neutrophil Count 7.1 X10^3/uL (2.0-7.7); Basophil# 0.06 X10^3/uL; Basophil% 0.6 % (0-1); Eosinophil# 0.15 X10^3/uL; Eosinophils% 1.5 % (0-5); Hematocrit 36.2 % (40-54); Lymphocyte # 2.02 X10^3/ul (0.83-4.51); Lymphocyte % 20.5 % (19-41); Mean Corp Hgb Conc 27.6 g/dL (32-36); Mean Corpuscular Hgb 23.5 pg (27.0-32.0); Monocyte# 0.48 X10^3/uL; Monocyte% 4.9 % (0-10); NRBC Flagged by Analyzer 0 % (0-5); Neutrophil # 7.08 X10^3/uL (2.7-7.7); Neutrophil % 71.8 % (47-70); Platelet Count 268 K/mm3 (150-450); RBC Distribution Width CV 15.6 % (11.6-14.6); RBC Distribution Width SD 47.8 fl (35.1-43.9); Red Blood Count 4.26 M/mm3 (4.6-6.2); White Blood Count 9.9 K/mm3 (4.4-11.0)
[2024-07-13 08:19] LABS: ALB/GLOB Ratio 0.6 RATIO (0.9-2.4); AST(SGOT) 20 U/L (15-37); Alanine Aminotransfer ALT/SGPT 33 U/L (16-61); Albumin, Serum 2.8 g/dL (3.2-5.0); Alkaline Phosphatase 124 U/L (45-117); Anion Gap 4 (5-15); BUN 19 mg/dL (7-18); BUN/Creat Ratio 16.2 RATIO (10-20); Calcium,Total 9.5 mg/dL (8.5-10.1); Chloride 98 mmol/L (98-107); Creatinine, Serum 1.17 mg/dL (0.70-1.30); EST Glomerular Filtration Rate 69 mL/min (>60); Est Glom Filt Rate - Afr Amer 83 mL/min (>60); Globulin 4.4 g/dL (2.2-4.2); Glucose 260 mg/dL (74-106); Potassium 4.2 mmol/L (3.5-5.1); Protein, Total 7.2 g/dL (6.4-8.2); Sodium Level 136 mmol/L (136-145)
[2024-07-13 08:30] LABS: Erythrocyte Sedimentation Rate 69 mm/hr (0-20)
== END | disposition home or self-care (01) ==
LOC: LAB 04:22
PROVIDERS: PCP Family Medicine; Visit Provider Family Medicine
DX: I83.019 Varicose veins of right lower extremity with ulcer of unspecified site (principal); M06.9 Rheumatoid arthritis, unspecified; K61.0 Anal abscess; Z51.81 Encounter for therapeutic drug level monitoring
CPT/HCPCS: 36415; 80053; 85025; 85652; 86140

== ENCOUNTER → 2024-07-20 | Outpatient (CLI) | payer MEDICAID, SELFPAY ==
[2024-07-20 08:14] LABS: ALB/GLOB Ratio 0.6 RATIO (0.9-2.4); AST(SGOT) 17 U/L (15-37); Alanine Aminotransfer ALT/SGPT 29 U/L (16-61); Albumin, Serum 2.7 g/dL (3.2-5.0); Alkaline Phosphatase 115 U/L (45-117); Anion Gap 2 (5-15); BUN 21 mg/dL (7-18); BUN/Creat Ratio 17.4 RATIO (10-20); Calcium,Total 9.1 mg/dL (8.5-10.1); Chloride 98 mmol/L (98-107); Creatinine, Serum 1.21 mg/dL (0.70-1.30); EST Glomerular Filtration Rate 66 mL/min (>60); Est Glom Filt Rate - Afr Amer 80 mL/min (>60); Globulin 4.4 g/dL (2.2-4.2); Glucose 248 mg/dL (74-106); Potassium 3.7 mmol/L (3.5-5.1); Protein, Total 7.1 g/dL (6.4-8.2); Sodium Level 137 mmol/L (136-145)
[2024-07-20 08:34] LABS: Erythrocyte Sedimentation Rate 70 mm/hr (0-20)
[2024-07-20 08:36] LABS: Absolute Neutrophil Count 7.6 X10^3/uL (2.0-7.7); Basophil# 0.05 X10^3/uL; Basophil% 0.5 % (0-1); Eosinophil# 0.17 X10^3/uL; Eosinophils% 1.6 % (0-5); Hematocrit 34.6 % (40-54); Hemoglobin 9.5 g/dL (13.0-16.5); Lymphocyte % 19.9 % (19-41); Mean Corp Hgb Conc 27.5 g/dL (32-36); Mean Corpuscular Hgb 23.1 pg (27.0-32.0); Mean Corpuscular Volume 84.2 fL (80-94); Mean Platelet Vol. 9.7 fl (6.2-12.0); Monocyte# 0.62 X10^3/uL; Monocyte% 5.9 % (0-10); NRBC Flagged by Analyzer 0 % (0-5); Neutrophil # 7.55 X10^3/uL (2.7-7.7); Neutrophil % 71.4 % (47-70); Platelet Count 295 K/mm3 (150-450); RBC Distribution Width CV 15.9 % (11.6-14.6); RBC Distribution Width SD 47.6 fl (35.1-43.9); Red Blood Count 4.11 M/mm3 (4.6-6.2); White Blood Count 10.6 K/mm3 (4.4-11.0)
== END | disposition home or self-care (01) ==
LOC: LAB 03:58
PROVIDERS: PCP Family Medicine; Visit Provider Family Medicine
DX: I83.019 Varicose veins of right lower extremity with ulcer of unspecified site (principal); M06.9 Rheumatoid arthritis, unspecified; K61.0 Anal abscess; Z51.81 Encounter for therapeutic drug level monitoring
CPT/HCPCS: 36415; 80053; 85025; 85652; 86140

== ENCOUNTER 2024-07-25 10:18 | Inpatient (IN) | payer MEDICAID, SELFPAY ==
[2024-07-25] VITALS (8 sets, daily range): BP systolic 127–149; BP diastolic 58–129; PULSE 75–98; RESP 17–24; TEMP 36.5–36.9; O2SAT 94–100; BMI 69.8; BMI 66.0
--- NOTE | 2024-07-25 10:48 | RAD_ITS ---
INDICATION: Dyspnea EXAMINATION/TECHNIQUE: X-RAY - XR Chest 2 Views COMPARISON: June 29, 2024 FINDINGS: LINES/DEVICES: There is a dual-lead cardiac pacer device in place. LUNGS: There are bilateral ill-defined opacities throughout the mid and lower lungs. There is a stable curvilinear opacity within the left midlung suggestive of atelectasis and/or scarring. No pneumothorax. MEDIASTINUM AND CARDIOVASCULAR STRUCTURES: There is cardiomegaly. Central airways and mediastinal contour are unremarkable. BONES AND SOFT TISSUES: Unremarkable. RAD/Chest PA and Lateral IMPRESSION: Bilateral ill-defined opacities may be secondary to edema and/or pneumonia. Cardiomegaly. Electronically Signed: Bouchra Casanova MD at 12:56 EST ,
--- NOTE | 2024-07-25 10:48 | EKG12_ITS ---
Test Reason : SOB Blood Pressure : */* mmHG Vent. Rate : 85 BPM Atrial Rate : 85 BPM P-R Int : 154 ms QRS Dur : 134 ms QT Int : 398 ms P-R-T Axes : * -57 42 degrees QTcB Int : 473 ms Normal sinus rhythm Right bundle branch block Left anterior fascicular block Bifascicular block Abnormal ECG Confirmed by GODWIN MEZA, EDWARDO ([id number]), script editor ALF RUCKER ([id number]) on 07/28/2024 2:22:17 PM Referred By: Confirmed By: EDWARDO CONNELLY MD
[2024-07-25 11:00] LABS: Absolute Lymphocyte Count 2.51 X10^3/uL (0.83-4.51); Absolute Neutrophil Count 8.7 X10^3/uL (2.0-7.7); Basophil# 0.04 X10^3/uL; Basophil% 0.3 % (0-1); Eosinophil# 0.16 X10^3/uL; Eosinophils% 1.3 % (0-5); Lymphocyte # 2.51 X10^3/ul (0.83-4.51); Lymphocyte % 20.8 % (19-41); Mean Corp Hgb Conc 27.8 g/dL (32-36); Mean Corpuscular Hgb 23.4 pg (27.0-32.0); Mean Corpuscular Volume 84.1 fL (80-94); Mean Platelet Vol. 11.1 fl (6.2-12.0); Monocyte# 0.63 X10^3/uL; Monocyte% 5.2 % (0-10); NRBC Flagged by Analyzer 0 % (0-5); Neutrophil # 8.68 X10^3/uL (2.7-7.7); Neutrophil % 71.8 % (47-70); Platelet Count 272 K/mm3 (150-450); RBC Distribution Width CV 16.2 % (11.6-14.6); RBC Distribution Width SD 49.2 fl (35.1-43.9); Red Blood Count 4.28 M/mm3 (4.6-6.2); White Blood Count 12.1 K/mm3 (4.4-11.0)
--- NOTE | 2024-07-25 11:02 | EX.ED.DYSGE1 ---
HPI History of Present Illness Chief Complaint: Edema Detail of Chief Complaint: Increased edema, dyspnea with minimal activity Informant: patient Onset/Context/Timing Onset: Weeks Context: Gradual Onset Timing: Continuous and Waxes and wanes Quality: Increased swelling, weight gain, dyspnea at rest and dyspnea with minimal a Location: Cardiovascular Current Severity: Mild Maximum Severity: Severe Worsened by: Any activity Relieved by: Nothing Associated Symptoms Associated Symptoms: Swelling of his scrotum and extremities Narrative Narrative: Patient is a 53-year-old male. He was admitted the end of June. His weight at the time of admission was 528 pounds and was 500 pounds at time of discharge. Today he weighs 529 pounds. Patient reports compliant with diet and medication. Upon further clarification he receives his meals from mobile [facility]. Patient wears oxygen continuously at 4 L. He states he has to increase it to get up to go to the restroom. He denies fever, chills night sweats. He denies headache, visual, ocular auditory symptoms. He denies chest discomfort of any type. He does have orthopnea. He denies PND. He denies abdominal pain, nausea, vomiting or diarrhea. He denies constipation. He denies urologic symptoms. Prior similar symptoms: Yes Recent Illness/Hospitalization: Yes [facility] Medical History Morbid obesity Anasarca Adult failure to thrive Former smoker History of diabetes mellitus History of anemia History of atrial fibrillation Chronic anticoagulation Hypothyroidism Diabetes Atrial fibrillation Pacemaker Myocardial infarct Depression PTSD (post-traumatic stress disorder) Leg pain Essential hypertension Atherosclerotic heart disease of [place] coronary artery without angina pectoris NSTEMI, initial episode of care Anxiety Chronic pain Kidney stones GERD (gastroesophageal reflux disease) Smoker On home oxygen therapy Sleep apnea Chest pain DVT (deep venous thrombosis) Left against medical advice Pain in scapula Ulcer of scrotum Non-healing surgical wound Colon polyps Hypothyroidism Goiter Chronic prescription benzodiazepine use Anemia Superficial thrombophlebitis of leg Chronic hypoxemic respiratory failure BERT (obstructive sleep apnea) COPD (chronic obstructive pulmonary disease) Chronic steroid use Family history of premature CAD HLD (hyperlipidemia) Intertrigo IBS (irritable bowel syndrome) Rheumatoid arthritis Super obesity 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 Home Medications ?Medication ?Instructions ?Recorded ?Last Taken ?Type albuterol sulfate 90 mcg/actuation 1 - 2 puff inhalation UD PRN Sob 07/07/20 08/11/22 History aerosol inhaler (Ventolin HFA) &/Or Wheezing gabapentin 100 mg capsule 100 mg PO QHS PRN neuropathy 07/07/20 07/24/24 History ammonium lactate 12 % topical cream 1 applic topical BID LEGS 08/16/22 07/24/24 History aspirin 81 mg tablet,delayed 81 mg PO DAILY HEART HEALTH 08/16/22 07/25/24 History release atorvastatin 40 mg tablet 40 mg PO QHS CHOLESTEROL 08/16/22 07/24/24 History dabigatran etexilate 150 mg 150 mg PO BID BLOOD THINNER 08/16/22 07/25/24 History capsule (Pradaxa) fluticasone propionate 50 2 spray intranasal DAILY PRN Nasal 08/16/22 Unknown History mcg/actuation nasal Congestion spray,suspension levothyroxine 150 mcg tablet 150 mcg PO DAILY THYROID 08/16/22 07/25/24 History losartan 25 mg tablet 12.5 mg PO BID BLOOD PRESSURE 08/16/22 07/25/24 History metoprolol tartrate 25 mg tablet 12.5 mg PO BID BLOOD PRESSURE 08/16/22 07/25/24 History nystatin 100,000 unit/gram topical 1 applic topical BID SKIN FOLDS 08/16/22 07/25/24 History powder ([facility]) prednisone 10 mg tablet 10 mg PO BID STEROID 08/16/22 07/25/24 History cefdinir 300 mg capsule 300 mg PO DAILY prevents infection 06/29/24 07/24/24 History diazepam 5 mg tablet 5 mg PO TID PRN PRN angina 06/29/24 07/23/24 History ursodiol 250 mg tablet 250 mg PO BID Gallbladder 06/30/24 07/25/24 History ascorbic acid (vitamin C) 500 mg 500 mg PO DAILY 07/25/24 07/24/24 History tablet cholecalciferol (vitamin D3) 1,250 1,250 mcg PO QWEEK 07/25/24 07/23/24 History mcg (50,000 unit) capsule dulaglutide 0.75 mg/0.5 mL 0.75 mg subcut QWEEK 07/25/24 07/23/24 [facility] furosemide 20 mg tablet 60 mg PO BID 07/25/24 07/24/24 History furosemide 40 mg tablet 60 mg PO BID 07/25/24 07/24/24 History glipizide 10 mg tablet, extended 10 mg PO BID 07/25/24 07/25/24 History release 24 hr levothyroxine 125 mcg tablet 125 mcg PO DAILY 07/25/24 07/25/24 History menthol 0.44 %-zinc oxide 20.6 % 1 applic topical QHS 07/25/24 Unknown History topical ointment (Calmoseptine) metolazone 5 mg tablet 5 mg PO BID 07/25/24 07/25/24 History omeprazole 40 mg capsule,delayed 40 mg PO BID 07/25/24 07/25/24 History release ondansetron HCl 4 mg tablet 4 mg PO Q8H PRN PRN nausea 07/25/24 Unknown History potassium chloride 20 mEq 40 meq PO DAILY 07/25/24 07/25/24 History tablet,extended release(part/cryst) (Klor-Con M) Allergy/AdvReac Type Severity Reaction Status Date / Time Penicillins Allergy Hives Verified 07/25/24 10:21 red dye Allergy Hives Verified 07/25/24 10:21 etanercept (From Enbrel) AdvReac Swelling Verified 07/25/24 10:21 rivaroxaban (From Xarelto) AdvReac Nausea Verified 07/25/24 10:21 warfarin sodium (From AdvReac Nausea Verified 07/25/24 10:21 Coumadin) Family History Mother Cancer Heart disease Kidney disease Hypertension Father Cancer Heart disease Kidney disease Hypertension Surgical History History of coronary artery stent placement (03/25/21) Social History household members: family Smoking Status: Former smoker alcohol intake: never substance use type: does not use ROS ROS ED Constitutional Constitutional ED: Denies chills, fever(s) or subjective Eyes Eyes: Denies blurry vision, change in vision or diplopia ENT ENT ED: Denies ear pain, rhinorrhea or sore throat Cardiovascular Cardiovascular: Reports orthopnea; Denies chest pain, palpitations, paroxysmal nocturnal dyspnea or racing heartbeat Respiratory/Chest Respiratory/Chest: Reports dyspnea, dyspnea on exertion and orthopnea; Denies cough or paroxysmal nocturnal dyspnea Gastrointestinal Gastrointestinal: Denies abdominal pain, diarrhea, nausea or vomiting Genitourinary Genitourinary ED: Denies dysuria, hematuria or urinary frequency Musculoskeletal Musculoskeletal: Denies arthralgias or myalgias Integumentary Reports other Details: Venous stasis dermatitis of his lower extremities. Neurologic Neurologic: Denies headache(s) or paresthesias Psychiatric Psychiatric: Denies anxiety Endocrine Endocrinology: Denies cold intolerance or heat intolerance Hematologic/Lymphatic Hematologic/Lymphatic: Reports systems reviewed and no addt'l complaints, except as documented EXAM Physical Exam Const Vital Signs: 07/25/24 10:18 07/25/24 11:34 07/25/24 12:49 Temperature 98.5 F Temperature Source Oral Pulse Rate 97 75 85 Respiratory Rate 24 H 17 Blood Pressure 149/129 H 127/58 H 134/69 H Blood Pressure Mean 135 81 90 Pulse Ox 99 Oxygen Delivery Method Nasal Cannula Oxygen Flow Rate (L/min) 4 Positive well nourished and well developed Constitutional Narrative: BMI is 69.9. Patient is tachypneic. He does have conversational dyspnea. General Appearance ED: well developed; Negative for cyanotic, diaphoretic, NAD or pallor HEENT Reports moist mucous membranes HEENT Narrative: Patient has a jarrett face appearance. There is periorbital edema noted. Ears normal. Nares patent. Posterior pharynx is unremarkable. Uvula is midline. Eyes PERRL and EOMs intact bilaterally General Eye ED: Negative for pale conjunctiva or scleral icterus Neck no lymphadenopathy, supple and no JVD Chest Wall inspection of chest normal and palpation of chest normal Resp No normal respiratory effort and No clear to auscultation bilaterally Auscultation: rales right base Cardio regular rate, regular rhythm, S1 normal heart sound, S2 normal heart sound and no murmurs GI normal to inspection, nondistended, normoactive bowel sounds, non-tender, non-distended and no masses; Negative for hepatosplenomegaly GI Narrative: Abdominal exam is limited due to body habitus. Patient does have anasarca. There is pitting edema of the lower abdomen and sacrum. Narrative: Patient has swelling of his scrotum. Back/Spine no CVA tenderness Extremity Negative for normal to inspection Extremity Narrative: Venous stasis dermatitis lower extremity. Neuro oriented x3, CN's II-XII intact bilaterally and no sensory deficits noted Sensorium / Orientation: alert Motor Exam: strength 5/5 throughout Psych mental status grossly normal Skin No no rashes or lesions noted, no wounds and skin turgor normal General Skin Exam: Negative for jaundice or pallor MDM MDM MDM Narrative Medical decision making narrative: Patient has anasarca. Will obtain troponin to assess for cardiac ischemia. EKG to assess rhythm and if there is any changes from prior. Chest x-ray because of bilateral rales and see if patient has left-sided heart failure as well as right-sided heart failure. Patient had a 29 pound weight gain since time of discharge. He was treated with IV Lasix. Since patient has anasarca with a 29 pound weight gain he will require admission. VBG was obtained to assess acid-base status and specifically CO2. Lab Data Attestation: I reviewed the patient's lab results. Lab results narrative: CBC reveals elevated white count of 12.1. There is a slight shift. Patient is anemic with an H&H of 10.0 and 36.0 with normal indices. Electrolyte panel was an elevated glucose of 154 with a normal CO2 anion gap. Troponin is normal at 20. Super days of symptoms. BNP is normal. Labs: Laboratory Results - last 24 hr 07/25/24 10:30 WBC 12.1 H RBC 4.28 L Hgb 10.0 L Hct 36.0 L MCV 84.1 MCH 23.4 L MCHC 27.8 L RDW Std Deviation 49.2 H RDW Coeff of Kris 16.2 H Plt Count 272 MPV 11.1 Immature Gran % (Auto) 0.600 Neut % (Auto) 71.8 H Lymph % (Auto) 20.8 Terry % (Auto) 5.2 Eos % (Auto) 1.3 Baso % (Auto) 0.3 Absolute Neuts (auto) 8.7 H Absolute Lymphs (auto) 2.51 Nucleated RBC % 0 Sodium 137 Potassium 3.5 Chloride 97 L Carbon Dioxide 30.0 Anion Gap 9 BUN 15 Creatinine 1.18 Estim Creat Clear Calc 145.78 Est GFR (MDRD) Af Amer 82 Est GFR (MDRD) Non-Af 68 BUN/Creatinine Ratio 12.7 Glucose 154 H Calcium 9.1 Troponin I High Sens 20 B-Natriuretic Peptide 19.1 ABG Data ABG results: ABG 07/25/24 11:18 Specimen Type LUCAS Sample Site Not entered O2 % 4.0 VBG pH 7.37 VBG pO2 43 H VBG HCO3 32 H VBG Total CO2 34 H VBG O2 Sat (Calc) 75 H VBG Base Excess 7 H POC Mix VBG pCO2 Pt Tmp 55.3 H O2 Delivery Device Cannula Radiography Chest X-Ray - ED: 2 View and Read by ED Physician (Suboptimal film due to body habitus. There may be mild cardiomegaly. Unable to determine much of anything else.) Diagnostic Testing: Clinical Impression(s) from Imaging Studies Chest X-Ray 07/25/24 10:48 IMPRESSION: Bilateral ill-defined opacities may be secondary to edema and/or pneumonia. Cardiomegaly. Electronically Signed: Bouchra Casanova MD at 12:56 EST , EKG Initial EKG: Attestation: I personally reviewed and interpreted this EKG as follows: Interpretation: Sinus Rhythm (Rate is 85. NE interval is 154 ms. QRS duration is prolonged at 134 ms and patient has evidence of a right bundle branch block as well as left anterior fascicular block. QT duration 398 ms. [place] is to the left.) Management Discussion w/another healthcare provider: Hospitalist (Case discussed with Dr. Gross. Patient to be admitted to PCU since he will be placed on a Lasix drip.) Discharge Plan Triage Chief Complaint: Edema ED Provider: Owen Patel Dx/Rx/DC Orders Clinical Impression: Anasarca, Right heart failure, Obstructive sleep apnea, HLD (hyperlipidemia), Essential hypertension, History of hypothyroidism, Type 2 diabetes mellitus Prescriptions: No Action gabapentin 100 MG capsule 100 mg PO QHS PRN (Reason: neuropathy) Patient Comments: 100-200mg albuterol sulfate [Ventolin HFA] 1 INHALER inhaler 1 - 2 puff INHALATION UD PRN (Reason: Sob &/Or Wheezing) Rx Instructions: INHALE 1 TO 2 PUFFS BY MOUTH AND INTO THE LUNGS EVERY 4 TO 6 HOURS NEEDED prednisone 10 mg Tablet 10 mg PO BID aspirin 81 mg tablet,delayed release (DR/EC) 81 mg PO DAILY levothyroxine 150 mcg tablet 150 mcg PO DAILY Rx Instructions: takes with 125mcg daily ammonium lactate 12 % cream 1 applic TOPICAL BID nystatin [Nyamyc] 100,000 unit/gram powder 1 applic TOPICAL BID Patient Comments: apply to affected area once daily to twice a day fluticasone propionate 50 mcg/actuation spray,suspension 2 spray INTRANASAL DAILY PRN (Reason: Nasal Congestion) Patient Comments: instill 2 sprays into each nostril once daily atorvastatin 40 mg tablet 40 mg PO QHS losartan 25 mg tablet 12.5 mg PO BID metoprolol tartrate 25 mg tablet 12.5 mg PO BID dabigatran etexilate [Pradaxa] 150 mg capsule 150 mg PO BID Rx Instructions: take 1 pill (150mg) in the morning then take 1 pill in the evening (150mg) for a total of 300mg. cefdinir 300 mg capsule 300 mg PO DAILY diazepam 5 mg tablet 5 mg PO TID PRN PRN (Reason: angina) ursodiol 250 mg tablet 250 mg PO BID furosemide 40 mg tablet 60 mg PO BID Rx Instructions: taking with 20mg for total daily dose of 60mg glipizide 10 mg tablet extended release 24hr 10 mg PO BID ondansetron HCl 4 mg tablet 4 mg PO Q8H PRN PRN (Reason: nausea) metolazone 5 mg tablet 5 mg PO BID omeprazole 40 mg capsule,delayed release(DR/EC) 40 mg PO BID potassium chloride [Klor-Con M20] 20 mEq tablet,ER particles/crystals 40 meq PO DAILY ascorbic acid (vitamin C) 500 mg tablet 500 mg PO DAILY levothyroxine 125 mcg tablet 125 mcg PO DAILY Rx Instructions: takes with 150mcg daily cholecalciferol (vitamin D3) 1,250 mcg (50,000 unit) capsule 1,250 mcg PO QWEEK Trulicity 0.75 mg/0.5 mL pen injector 0.75 mg subcut QWEEK Patient Comments: ida amaya told pt to stop for now furosemide 20 mg tablet 60 mg PO BID Rx Instructions: taking with 40mg for total daily dose of 60mg menthol-zinc oxide [Calmoseptine] 0.44-20.6 % ointment 1 applic topical QHS Primary Care Provider: Ida Amaya Referrals: Ida Amaya DO [Primary Care Provider] - Print Language: [place] Disposition Disposition: Acute Care Hospital [facility]
[2024-07-25 11:19] LABS: Anion Gap 9 (5-15); BUN 15 mg/dL (7-18); BUN/Creat Ratio 12.7 RATIO (10-20); Calcium,Total 9.1 mg/dL (8.5-10.1); Chloride 97 mmol/L (98-107); Creatinine, Serum 1.18 mg/dL (0.70-1.30); EST Glomerular Filtration Rate 68 mL/min (>60); Est Glom Filt Rate - Afr Amer 82 mL/min (>60); Estimated Creatinine Clearance 145.78 ml/min; Glucose 154 mg/dL (74-106); Potassium 3.5 mmol/L (3.5-5.1); Sodium Level 137 mmol/L (136-145); Troponin-I HS 20 pg/mL (3.0-78.0)
[2024-07-25 11:20] LABS: BNP,B-Type NATRIURETIC PEPTIDE 19.1 pg/mL (0-100)
[2024-07-25 11:21] LABS: Blood Gas Specimen Type VEN; O2 Delivery Device Cannula; SITE Not entered; VBG BASE EXCESS 7 mmol/L (-1.0-3.5); VBG Bicarbonate 32 mmol/L (22-26); VBG PO2 43 mmHg (25-40); VBG SO2 75 % (50-70); VBG TCO2 34 mmol/L (23-33); VBG pCO2 55.3 mmHg (41-51); VBG pH 7.37 (7.32-7.42)
[2024-07-25] MEDS: Furosemide 100 MG/10 ML Vial IV (11:33)
--- NOTE | 2024-07-25 12:44 | HP.PCM.HOS_ITS ---
HPI - General General Date of Admission: 07/25/24 Date of Service: 07/25/24 Chief Complaint: Worsening edema with 29 pound weight gain/dyspnea on exertion HPI Narrative CAYLA GRANADOS, is a 53 M who presented to the emergency department at [facility] on 07/25/2024 with worsening edema and a 29 pound weight gain along with dyspnea on exertion. The patient chronically wears 4 L of oxygen [id number]. He states his oxygen requirement has not gone up however he has had more dyspnea on exertion and significant weight gain with worsening edema. He states he has severe scrotal edema which he had at discharge and felt like he may have been a bit under diuresed prior to discharge. He states he was a bit frustrated because he did not know how much salt to restrict or how much fluid restriction when he got home but he is trying to do the best job he can. He currently gets his meals from a meal service and states that they are supposed to be low-sodium and that his case maker help set this up for him however he is not completely aware how much sodium he is taking in. He does use Mrs. Melgoza for seasoning but also will use wilks hot sauce. We did discuss that hot sauce can be fairly high in sodium and he needs to watch those kind of supplements a little more closely. He voiced understanding and seemed to be sincere with wanting to learn more about how to manage his heart failure and stay out of the hospital and improve his physical condition. He does admit that he sits in a recliner to sleep and does not lie flat. He also expressed that he has been extremely fearful since he had his pacemaker placement to do anything. He was tearful during our conversation with regards to this and we did discuss the fact that he may be depressed and he voiced that he probably was. We discussed the initiation of an antidepressant and he was willing to try one. We felt that Zoloft would be a good antidepressant as he does have issues sleeping at night and it tends to be a bit more sedating. Will start dosing this this evening. Vital signs on presentation showed a temperature of 98.5, heart rate 97, respiratory rate 24, blood pressure is 149/129 with a repeat of 127/58 and he was on 4 L nasal cannula and stable. Exertional pulse ox was not assessed. CBC shows a mild leukocytosis with a white count of 12.1 with very minimal left shift and stable from previous. He has a chronic stable anemia with a hemoglobin of 10. Platelet count is normal. A VBG was done with a normal pH at 7.37. His chemistry panel was overall unremarkable other than a glucose of 154. Troponin was normal at 20. BNP was actually only 19.1 however he has never had an elevated BNP and responded well to diuretics previously. I suspect the predominant amount of his heart failure is right-sided. He did have an echocardiogram performed recently on 06/29/2024 that showed an EF of 65% and stage I diastolic dysfunction. Right ventricular systolic pressure was not able to be performed due to insufficient tricuspid regurgitant envelope and the study was technically difficult due to suboptimal images related to body habitus. He was given IV diuretics in the emergency department and admitted to telemetry. [facility] Medical History Morbid obesity Anasarca Adult failure to thrive Former smoker History of diabetes mellitus History of anemia History of atrial fibrillation Chronic anticoagulation Hypothyroidism Diabetes Atrial fibrillation Pacemaker Myocardial infarct Depression PTSD (post-traumatic stress disorder) Leg pain Essential hypertension Atherosclerotic heart disease of bois forte coronary artery without angina pectoris NSTEMI, initial episode of care Anxiety Chronic pain Kidney stones GERD (gastroesophageal reflux disease) Smoker On home oxygen therapy Sleep apnea Chest pain DVT (deep venous thrombosis) Left against medical advice Pain in scapula Ulcer of scrotum Non-healing surgical wound Colon polyps Hypothyroidism Goiter Chronic prescription benzodiazepine use Anemia Superficial thrombophlebitis of leg Chronic hypoxemic respiratory failure BERT (obstructive sleep apnea) COPD (chronic obstructive pulmonary disease) Chronic steroid use Family history of premature CAD HLD (hyperlipidemia) Intertrigo IBS (irritable bowel syndrome) Rheumatoid arthritis Super obesity 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 Home Medications ?Medication ?Instructions ?Recorded ?Last Taken ?Type albuterol sulfate 90 mcg/actuation 1 - 2 puff inhalation UD PRN Sob 07/07/20 08/11/22 History aerosol inhaler (Ventolin HFA) &/Or Wheezing gabapentin 100 mg capsule 100 mg PO QHS PRN neuropathy 07/07/20 07/24/24 History ammonium lactate 12 % topical cream 1 applic topical BID LEGS 08/16/22 07/24/24 History aspirin 81 mg tablet,delayed 81 mg PO DAILY HEART HEALTH 08/16/22 07/25/24 History release atorvastatin 40 mg tablet 40 mg PO QHS CHOLESTEROL 08/16/22 07/24/24 History dabigatran etexilate 150 mg 150 mg PO BID BLOOD THINNER 08/16/22 07/25/24 History capsule (Pradaxa) fluticasone propionate 50 2 spray intranasal DAILY PRN Nasal 08/16/22 Unknown History mcg/actuation nasal Congestion spray,suspension levothyroxine 150 mcg tablet 150 mcg PO DAILY THYROID 08/16/22 07/25/24 History losartan 25 mg tablet 12.5 mg PO BID BLOOD PRESSURE 08/16/22 07/25/24 History metoprolol tartrate 25 mg tablet 12.5 mg PO BID BLOOD PRESSURE 08/16/22 07/25/24 History nystatin 100,000 unit/gram topical 1 applic topical BID SKIN FOLDS 08/16/22 07/25/24 History powder ([facility]) prednisone 10 mg tablet 10 mg PO BID STEROID 08/16/22 07/25/24 History cefdinir 300 mg capsule 300 mg PO DAILY prevents infection 06/29/24 07/24/24 History diazepam 5 mg tablet 5 mg PO TID PRN PRN angina 06/29/24 07/23/24 History ursodiol 250 mg tablet 250 mg PO BID Gallbladder 06/30/24 07/25/24 History ascorbic acid (vitamin C) 500 mg 500 mg PO DAILY 07/25/24 07/24/24 History tablet cholecalciferol (vitamin D3) 1,250 1,250 mcg PO QWEEK 07/25/24 07/23/24 History mcg (50,000 unit) capsule dulaglutide 0.75 mg/0.5 mL 0.75 mg subcut QWEEK 07/25/24 07/23/24 History subcutaneous pen injector (Trulicity) furosemide 20 mg tablet 60 mg PO BID 07/25/24 07/24/24 History furosemide 40 mg tablet 60 mg PO BID 07/25/24 07/24/24 History glipizide 10 mg tablet, extended 10 mg PO BID 07/25/24 07/25/24 History release 24 hr levothyroxine 125 mcg tablet 125 mcg PO DAILY 07/25/24 07/25/24 History menthol 0.44 %-zinc oxide 20.6 % 1 applic topical QHS 07/25/24 Unknown History topical ointment (Calmoseptine) metolazone 5 mg tablet 5 mg PO BID 07/25/24 07/25/24 History omeprazole 40 mg capsule,delayed 40 mg PO BID 07/25/24 07/25/24 History release ondansetron HCl 4 mg tablet 4 mg PO Q8H PRN PRN nausea 07/25/24 Unknown History potassium chloride 20 mEq 40 meq PO DAILY 07/25/24 07/25/24 History tablet,extended release(part/cryst) (Klor-Con M) Allergy/AdvReac Type Severity Reaction Status Date / Time Penicillins Allergy Hives Verified 07/25/24 10:21 red dye Allergy Hives Verified 07/25/24 10:21 etanercept (From Enbrel) AdvReac Swelling Verified 07/25/24 10:21 rivaroxaban (From Xarelto) AdvReac Nausea Verified 07/25/24 10:21 warfarin sodium (From AdvReac Nausea Verified 07/25/24 10:21 Coumadin) Family History Mother Cancer Heart disease Kidney disease Hypertension Father Cancer Heart disease Kidney disease Hypertension Surgical History History of coronary artery stent placement (03/25/21) Social History household members: family Smoking Status: Former smoker alcohol intake: never substance use type: does not use ROS Constitutional Constitutional: Reports change in weight; Denies anorexia, chills, fatigue, fever(s), malaise, night sweats, weakness or other Eyes Eyes: Denies blurry vision, change in eye color, change in vision, discharge from eye(s), double vision, erythema, eye pain, loss of vision or other ENT HEENT: Denies abnormal hearing, dysphagia, ear pain, epistaxis, headache(s), hearing loss, nasal congestion, nasal discharge, post nasal drip, sinus pressure, sore throat or other Cardiovascular Cardiovascular: Reports dyspnea on exertion, edema, orthopnea, paroxysmal nocturnal dyspnea and other Details: Scrotal edema ; Denies chest pain, claudication, lightheadedness, palpitations, rapid heart rate or syncope Respiratory/Chest Respiratory/Chest: Reports dyspnea, shortness of breath at rest and shortness of breath with exertion; Denies cough, excessive phlegm production, hemoptysis, productive cough, wheezing or other Gastrointestinal Gastrointestinal: Denies abdominal pain, coffee ground emesis, constipation, diarrhea, dyspepsia, hematemesis, hematochezia, loose stools, melena, nausea, vomiting or other Genitourinary Genitourinary: Reports difficulty urinating and other Details: Scrotal pain ; Denies burning urination, dysuria, hematuria, nocturia, urinary frequency, urinary hesitancy, urinary incontinence or urinary urgency Musculoskeletal Musculoskeletal: Reports joint pain and joint stiffness; Denies arthralgias, back pain, joint swelling, myalgias, neck pain or other Neurologic Neurologic: Denies abnormal gait, abnormal speech, confusion, disequilibrium, dizziness, focal weakness, headache(s), numbness, paresthesias, seizure-like activity, seizures, syncope, tingling, tremor(s) or other Psychiatric Psychiatric: Denies anxiety, depression, homicidal ideation, suicidal ideation or other Endocrine Endocrinology: Denies change in body appearance, cold intolerance, excessive sweating, heat intolerance, polydipsia, polyuria or other Hematologic/Lymphatic Hematologic/Lymphatic: Denies anemia, easy bleeding, easy bruising, lymphadenopathy or other Allergic/Immunologic Allergic/Immunologic: Denies rhinitis, hives, eczemia, asthma or other Vital Signs Vital Signs Vital Signs: 07/25/24 10:18 07/25/24 11:34 Temperature 98.5 F Temperature Source Oral Pulse Rate 97 75 Respiratory Rate 24 H Blood Pressure 149/129 H 127/58 H Blood Pressure Mean 135 81 Oxygen Delivery Method Nasal Cannula Oxygen Flow Rate (L/min) 4 Weight Weight: 240.2 kg Body Mass Index (BMI) 69.8 Physical Exam Const alert, oriented x3, no apparent distress and well nourished; Negative for average body habitus or healthy appearing Constitutional Narrative: Super morbidly obese, white male, sitting up in bed, appears comfortable, nontoxic, very pleasant General Appearance: cooperative HEENT normocephalic, head/scalp atraumatic, hearing grossly normal bilaterally and moist oral mucous membranes HEENT Narrative: Mallampati 4, no thrush Eyes EOMs intact bilaterally and conjunctivae normal Eyes Narrative: No scleral icterus, patient has puffiness around his eyes unsure if this is edema or his baseline Neck supple Neck Narrative: Neck is short and thick, trachea midline Resp normal respiratory effort, no retractions, no use of accessory muscles and clear to auscultation bilaterally Resp Narrative: Extremely distant due to body habitus Auscultation: Negative for rales, rhonchi or wheezes Cardio regular rate, regular rhythm, S1 normal heart sound, S2 normal heart sound, no murmurs, no rub, no gallops and no clicks GI normal to inspection, nondistended, normoactive bowel sounds, soft to palpation and non-tender GI Narrative: Large protuberant abdomen with anasarca noted at the inferior abdomen Extremity Extremity Narrative: Severe bilateral lower extremity pitting edema up his legs into his groin and scrotum with edema extending up into his trunk, no cyanosis or clubbing Skin Skin Narrative: No significant wounds noted Neuro oriented x3 and moves all extremities Speech: speech normal Psych affect normal Psych Narrative: Very pleasant, eye contact is good, patient was intermittently tearful throughout our conversation due to anticipated depression Results Lab / Micro Data 07/25/24 10:30 07/25/24 10:30 Labs: Laboratory Results - last 24 hr 07/25/24 10:30: WBC 12.1 H, RBC 4.28 L, Hgb 10.0 L, Hct 36.0 L, MCV 84.1, MCH 23.4 L, MCHC 27.8 L, RDW Std Deviation 49.2 H, RDW Coeff of Kris 16.2 H, Plt Count 272, MPV 11.1, Immature Gran % (Auto) 0.600, Neut % (Auto) 71.8 H, Lymph % (Auto) 20.8, [place] % (Auto) 5.2, Eos % (Auto) 1.3, Baso % (Auto) 0.3, Absolute Neuts (auto) 8.7 H, Absolute Lymphs (auto) 2.51, Nucleated RBC % 0, Sodium 137, Potassium 3.5, Chloride 97 L, Carbon Dioxide 30.0, Anion Gap 9, BUN 15, Creatinine 1.18, Estim Creat Clear Calc 145.78, Est GFR (MDRD) Af Amer 82, Est GFR (MDRD) Non-Af 68, BUN/Creatinine Ratio 12.7, Glucose 154 H, Calcium 9.1, Troponin I High Sens 20, B-Natriuretic Peptide 19.1 ABG Data ABG results: ABG 07/25/24 11:18 Specimen Type LUCAS Sample Site Not entered O2 % 4.0 VBG pH 7.37 VBG pO2 43 H VBG HCO3 32 H VBG Total CO2 34 H VBG O2 Sat (Calc) 75 H VBG Base Excess 7 H POC Mix VBG pCO2 Pt Tmp 55.3 H O2 Delivery Device Cannula Assessment & Plan Assessment/Plan (1) Anasarca: (2) Testicular/scrotal pain: (3) Right heart failure: PLAN: Plan BURCH/Anasarca/Scrotal Edema and Pain 2/2 to Acute on Chronic Diastolic Heart Failure -Bumex ggt -strict I and O -Bilateral lower extremity Jaydon bandages -Fluid restriction to 1500 cc -Sodium restriction -Daily weights -Patient just had a recent echocardiogram on 06/29/2024 that was of poor quality with an EF of 65% and stage I diastolic dysfunction and mild concentric LVH -Monitor I's and O's closely -Monitor electrolytes closely -Potassium was normal but low normal so we will give 60 mEq now to stay ahead of his potassium losses with diuretics -Continue home metolazone Depression -Patient tearful -States he has been down since he had his pacemaker placed and is afraid to do anything -Agreeable to try SSRI -Start Zoloft 100 mg at at bedtime -Would recommend outpatient counseling Generalized weakness/debility due to the above -PT/OT consultation -Patient is currently undergoing home health services Chronic hypoxic respiratory failure secondary to COPD/BERT/obesity hypoventilation syndrome -Dependent on 4 L oxygen continuous -As needed albuterol available -Patient is a former smoker -Patient is on chronic prednisone 10 mg p.o. twice daily--> would consider weaning this and trying off from a respiratory standpoint given his blood sugar issues and no wheezing on exam will leave for now for further consideration CAD/essential hypertension/hyperlipidemia -Continue home aspirin -Continue home atorvastatin -Hold home Lasix -Continue home losartan -Continue home metoprolol Hypothyroidism -Has had recent TSH within normal limits -Continue home levothyroxine DM-2 uncontrolled -Hemoglobin A1c on 06/22/2024 was 11.0 -Poorly controlled overall -Blood sugar okay on presentation 154 -Hold home glipizide History of recurrent infection--> suspect UTI but unclear -Continue home cefdinir History of Chanel's gangrene -Was transferred to [facility] in November -No current issues -Monitor closely Paroxysmal atrial fibrillation -Currently in sinus rhythm -Continue home Pradaxa -Continue home beta-tejinder Diabetic neuropathy -Continue home gabapentin GERD -Continue home PPI Morbid obesity -BMI 66.1 -Complicates treatment, prognosis, outcomes -Recommend weight loss DVT prophylaxis -Patient is fully anticoagulated with Pradaxa CODE STATUS -Full code as verified on admission Charges/Coding Visit Charges Inpatient E&M: 22989 Init Hosp L3
[2024-07-25] MEDS: diazePAM 5 MG Tablet PO ×2 (12:49→23:33)
--- NOTE | 2024-07-25 13:46 | CM.ED ---
Social work Reason for referral: admission to acute Referral source: case find This SW identified patient being admitted to acute and this SW had intentions of completing patient's initial assessment for discharge planning. In looking further at patient's chart, patient was admitted less than 30 days prior, so no initial assessment needed. Due to patient being alone, SW entered patient's room for support, introducing self and role at [facility]. Patient immediately became tearful and stated patient has had better days. Patient stated having minimal human supports, reporting that patient's mother lives with patient, but patient's 3 children rarely come to patient's home. Patient reported being homebound and lonely. Patient stated just wanting to feel wanted. Patient reported feeling unwanted since patient's divorce in 2020. Patient denied any current or historical suicidal thoughts. Patient stated having his conceal carry and respecting the use of guns; patient denied ever wanting to use the gun in an inappropriate way. Patient discussed the depths of patient's depression and patient was open to having telehealth counseling resources provided for patient. Patient discussed the way patient has stopped smoking over the last year, but patient reports turning to food instead. Patient expressed desiring to get a stationary bike to help patient start to become more active. Patient states he alex by making TikToks and making jewelry; patient showed this SW jewelry that patient has made over the years for patient's daughters. Patient denied having advance directives and denied wanting further information while admitted. Patient stated patient was an overthinker and patient reported already struggling with thinking patient was going to while in the hospital. Patient stated not having a basis for this thought, but expressed being a consistent thought while admitted to a hospital. Much active listening and supportive presence offered by this SW throughout the conversation. Patient stated having [facility] and patient reported this has been helpful; patient desires to discharge home with this again. Patient stated a previous stay at [facility], but patient expressed a desire to not return to [facility]. Patient stated just sitting there throughout the week patient was at [facility] and patient reports never being asked to do PT when patient thought that was the reason for going. Patient reports having a medical case worker, Kamala, through Medicaid's waiver program. Kamala's number is reportedly [phone]. Patient reports that patient's medical case worker is supposed to be helping patient gain a power chair lift and a hospital bed. Plan: admission to acute; RN CM/SW to follow for discharge planning needs that may arise. Resources needed (at minimum): telehealth counseling and food resources. Divya Todd, [employer] ADMINISTRATOR, BUILDING CARPENTER HELPER
[2024-07-25] MEDS: Bumetanide 12.5 MG in CONTAINER,EMPTY 1 BAG 2 MG CONT INF (14:34)
[2024-07-25] MEDS: Acetaminophen 325 MG Tablet 650 MG PO (16:23)
[2024-07-25 18:09] LABS: Bedside Glucose 174 mg/dL (74-106)
[2024-07-25] MEDS: Losartan Potassium 25 MG Tablet 12.5 MG PO (22:41)
[2024-07-25] MEDS: predniSONE 10 MG Tablet PO (22:43)
[2024-07-25] MEDS: Atorvastatin Calcium 40 MG Tablet PO (22:43)
[2024-07-25] MEDS: Dabigatran Etexilate Mesylate 150 MG Capsule PO (22:44)
[2024-07-25] MEDS: Ursodiol 250 MG Tablet PO (22:44)
[2024-07-25] MEDS: Pantoprazole Sodium 40 MG Tablet PO (22:44)
[2024-07-25] MEDS: Metoprolol Tartrate 25 MG Tablet 12.5 MG PO (22:45)
[2024-07-25] MEDS: Sertraline 100 MG Tablet PO (22:51)
[2024-07-25] MEDS: Nystatin Powder 15gm Bottle 1 APPLIC TOPICAL (23:27)
[2024-07-25] MEDS: Ammonium Lactate 225 gm Bottle 1 APPLIC TOPICAL (23:27)
[2024-07-25] MEDS: Gabapentin 100 MG Capsule PO (23:33)
[2024-07-25] MEDS: Potassium Chloride Oral Tablet 20 MEQ 60 MEQ PO (23:33)
[2024-07-25 23:38] LABS: Bedside Glucose 150 mg/dL (74-106)
[2024-07-26] VITALS (10 sets, daily range): BP systolic 119–160; BP diastolic 62–80; PULSE 80–99; RESP 18–20; TEMP 36.4–36.6; O2SAT 86–97; BMI 68.5
[2024-07-26] MEDS: Levothyroxine 150 MCG Tablet PO (05:56)
[2024-07-26] MEDS: Levothyroxine 125 MCG Tablet PO (05:56)
[2024-07-26] MEDS: Insulin Lispro 100 UNIT/ML INSULN.PEN SC (06:05)
[2024-07-26 06:19] LABS: Bedside Glucose 215 mg/dL (74-106)
[2024-07-26 06:38] LABS: Absolute Lymphocyte Count 1.66 X10^3/uL (0.83-4.51); Absolute Neutrophil Count 8.7 X10^3/uL (2.0-7.7); Basophil# 0.04 X10^3/uL; Basophil% 0.4 % (0-1); Eosinophils% 0.9 % (0-5); Hematocrit 33.5 % (40-54); Hemoglobin 9.2 g/dL (13.0-16.5); Lymphocyte # 1.66 X10^3/ul (0.83-4.51); Mean Corp Hgb Conc 27.5 g/dL (32-36); Mean Corpuscular Hgb 22.8 pg (27.0-32.0); Mean Corpuscular Volume 83.1 fL (80-94); Mean Platelet Vol. 9.6 fl (6.2-12.0); Monocyte# 0.53 X10^3/uL; Monocyte% 4.8 % (0-10); NRBC Flagged by Analyzer 0 % (0-5); Neutrophil # 8.69 X10^3/uL (2.7-7.7); Neutrophil % 78.3 % (47-70); Platelet Count 259 K/mm3 (150-450); RBC Distribution Width CV 15.8 % (11.6-14.6); RBC Distribution Width SD 47.7 fl (35.1-43.9); Red Blood Count 4.03 M/mm3 (4.6-6.2); White Blood Count 11.1 K/mm3 (4.4-11.0)
[2024-07-26 07:09] LABS: ALB/GLOB Ratio 0.6 RATIO (0.9-2.4); AST(SGOT) 26 U/L (15-37); Alanine Aminotransfer ALT/SGPT 32 U/L (16-61); Albumin, Serum 2.6 g/dL (3.2-5.0); Alkaline Phosphatase 113 U/L (45-117); Anion Gap 5 (5-15); BUN 19 mg/dL (7-18); BUN/Creat Ratio 14.6 RATIO (10-20); Calcium,Total 8.6 mg/dL (8.5-10.1); Chloride 98 mmol/L (98-107); EST Glomerular Filtration Rate 61 mL/min (>60); Est Glom Filt Rate - Afr Amer 74 mL/min (>60); Estimated Creatinine Clearance 130.71 ml/min; Globulin 4.5 g/dL (2.2-4.2); Glucose 238 mg/dL (74-106); Magnesium 1.7 mg/dL (1.6-2.6); Phosphorus 3.9 mg/dL (2.5-4.9); Potassium 3.8 mmol/L (3.5-5.1); Protein, Total 7.1 g/dL (6.4-8.2); Sodium Level 137 mmol/L (136-145)
[2024-07-26] MEDS: Bumetanide 12.5 MG in CONTAINER,EMPTY 1 BAG 2 MG CONT INF (07:56)
--- NOTE | 2024-07-26 08:29 | PN.HOSP_ITS ---
Reason for Visit Reason for Visit: Diagnoses Right heart failure, unspecified (07/25/24) Generalized edema (07/25/24) Subjective Subjective Patient with no acute events overnight per self and per nursing report. Patient with ongoing diuresis with overnight 3030 cc output at least. Discussed ongoing plan for diuresis, continued education with nutrition consultation, lower extremity mary wraps with elevation and scrotal elevation which patient was amenable. Discussed patient pacemaker and he notes it was placed secondary to bradycardia but cannot give further detail. Patient does admit to ongoing fear and depression which was discussed and patient has been continued on Zoloft. Patient does note that he feels as though he is breathing better. Patient denies fevers, chills, nausea, emesis, abdominal pain, chest pain or any recurrent or worsening dyspnea. Objective Data Objective Data Vital Signs: Vital Signs Temp Pulse Resp BP Pulse Ox O2 Del Method O2 Flow Rate 97.5 F L 93 20 H 119/62 94 Nasal Cannula 4 07/26/24 05:45 07/26/24 05:45 07/26/24 05:45 07/26/24 05:45 07/26/24 05:45 07/26/24 05:45 07/26/24 05:45 Oxygen Flow Rate (L/min) 4 Oxygen Delivery Method Nasal Cannula Weight: 519 lb 13.6 oz Body Mass Index (BMI) 68.5 Intake & Output: Intake and Output for Last 24 Hours 07/24/24 07/25/24 07/26/24 23:59 23:59 23:59 Intake Total 480 / 480 314.73 / 314.73 Output Total 1450 / 2330 3030 / 3030 Balance -970 / -1850 -2715.27 / -2715.27 Lab / Micro Data 07/26/24 06:16 07/26/24 06:16 Labs: Laboratory Results - last 24 hr 07/25/24 10:30: WBC 12.1 H, RBC 4.28 L, Hgb 10.0 L, Hct 36.0 L, MCV 84.1, MCH 23.4 L, MCHC 27.8 L, RDW Std Deviation 49.2 H, RDW Coeff of Kris 16.2 H, Plt Count 272, MPV 11.1, Immature Gran % (Auto) 0.600, Neut % (Auto) 71.8 H, Lymph % (Auto) 20.8, [place] % (Auto) 5.2, Eos % (Auto) 1.3, Baso % (Auto) 0.3, Absolute Neuts (auto) 8.7 H, Absolute Lymphs (auto) 2.51, Nucleated RBC % 0, Sodium 137, Potassium 3.5, Chloride 97 L, Carbon Dioxide 30.0, Anion Gap 9, BUN 15, Creatinine 1.18, Estim Creat Clear Calc 145.78, Est GFR (MDRD) Af Amer 82, Est GFR (MDRD) Non-Af 68, BUN/Creatinine Ratio 12.7, Glucose 154 H, Calcium 9.1, Troponin I High Sens 20, B-Natriuretic Peptide 19.1 07/25/24 16:27: POC Glucose 174 H 07/25/24 22:33: POC Glucose 150 H 07/26/24 06:00: POC Glucose 215 H 07/26/24 06:16: WBC 11.1 H, RBC 4.03 L, Hgb 9.2 L, Hct 33.5 L, MCV 83.1, MCH 22.8 L, MCHC 27.5 L, RDW Std Deviation 47.7 H, RDW Coeff of Kris 15.8 H, Plt Count 259, MPV 9.6, Immature Gran % (Auto) 0.600, Neut % (Auto) 78.3 H, Lymph % (Auto) 15.0 L, [place] % (Auto) 4.8, Eos % (Auto) 0.9, Baso % (Auto) 0.4, Absolute Neuts (auto) 8.7 H, Absolute Lymphs (auto) 1.66, Nucleated RBC % 0, Sodium 137, Potassium 3.8, Chloride 98, Carbon Dioxide 35.0 H, Anion Gap 5, BUN 19 H, Creatinine 1.30, Estim Creat Clear Calc 130.71, Est GFR (MDRD) Af Amer 74, Est GFR (MDRD) Non-Af 61, BUN/Creatinine Ratio 14.6, Glucose 238 H, Calcium 8.6, Phosphorus 3.9, Magnesium 1.7, Total Bilirubin 0.40, AST 26, ALT 32, Alkaline Phosphatase 113, Total Protein 7.1, Albumin 2.6 L, Globulin 4.5 H, A lbumin/Globulin Ratio 0.6 L ABG Data ABG results: ABG 07/25/24 11:18 Specimen Type LUCAS Sample Site Not entered O2 % 4.0 VBG pH 7.37 VBG pO2 43 H VBG HCO3 32 H VBG Total CO2 34 H VBG O2 Sat (Calc) 75 H VBG Base Excess 7 H POC Mix VBG pCO2 Pt Tmp 55.3 H O2 Delivery Device Cannula Radiography Diagnostic Testing: Radiology Impression Chest X-Ray 07/25/24 10:48 IMPRESSION: Bilateral ill-defined opacities may be secondary to edema and/or pneumonia. Cardiomegaly. Electronically Signed: Bouchra Casanova MD at 12:56 EST , Physical Exam Narrative Physical Examination: General: Awake, alert, oriented x 3 and cooperative, seated upright in a PCU bed, talking with the integrated marketing specialist, no acute distress. Skin: Normal color, normal turgor, no icterus, no cyanosis except for occasional stage ecchymoses, abrasion, intertrigo which is improving. HEENT: AT/NC, EOMI, PERRLA, MMM. Lungs: Distant breath sounds likely secondary to habitus, greater bases, appropriate effort, no evidence of any distress, no rales, ronchi or wheezing. Heart: Regular rate and rhythm; no gallop, rub audible. Abdomen: Soft, morbidly obese, NTTP, distant bowel sounds, difficult to discern distention given habitus. Extremities: No cyanosis, no clubbing, pedal to knee 1-2+ edema however improving, warm to touch but suspect likely bilateral venous stasis, scrotal edema also improving but distillery manager to palpation and edematous. Neurological: Patient awake, alert, oriented as noted, cognitive function intact; pupils equally reactive to light and accommodation, cranial nerves grossly normal, moving all 4 extremities, no focal deficits, strength moderately to severely globally decreased but improving Psychiatric: Affect appears fatigued but improving, still emotionally labile with discussions with admission of anxiety and depression. 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 ED on 07/25/24 with history of significant worsening edema, 29 pound weight gain, dyspnea on exertion, orthopnea prompting ED evaluation. #1. Significant anasarca, scrotal swelling, dyspnea progressively worsening secondary to Acute on Chronic HFpEF with chronic hypoxic respiratory failure complicated by underlying COPD, obesity hypoventilation syndrome as well as BERT: Patient admitted to PCU, continue chronic oxygen supplementation, unable unfortunately to tolerate PAP therapies, initiated and continued on Bumex drip, continued metolazone oral regimen concurrently, strict I's and O's, fluid restriction, sodium restriction, daily weights, bilateral lower extremity snug mary wraps with elevation, recent echocardiogram 06/29/2024 unfortunately with poor quality secondary to habitus with an EF of 65% and stage I diastolic dysfunction and mild concentric LVH, continue to monitor electrolytes, may consider involving cardiology if necessary. Suspect patient will require several days of Bumex drip and diuresis. Upon discharge patient will need very strict sodium intake planning and fluid restriction planning with nutrition consultation requested for education and teaching. #2. Uncontrolled depression, likely secondary to underlying comorbidities and #1: Patient during admission reporting depression, tearful with hospitalist upon admission, reports fear of dying especially since recent pacemaker placement, lengthy discussion per admitting hospitalist with encouragement of activities, initiated on SSRI Zoloft 100 mg at bedtime, can certainly adjust as needed and titrate upward, will need outpatient counseling with primary care at discharge. #3. Recent suspected urinary tract infection, unclear organism outpatient: We will continue patient home cefdinir regimen, suspect UTI, will continue to completion date. #4. Intertrigo: Will continue nystatin regimen with skin fold care education and ongoing cleansing/pat dry before nystatin application. #5. General Debility, weakness, adult failure to thrive: Multifactorial, secondary to acute presentation and severe underlying comorbidities, maintained on fall precautions, PT/OT/case management consulted for discharge planning #6. Chronic COPD with chronic hypoxic respiratory failure 4 L NC: Will maintain on home oxygen supplementation, continue ATC budesonide, PRN albuterol, HOB, IS parameters, encourage continued tobacco cessation, will continue chronic low- dose prednisone which he is on twice daily however would benefit from considering to transition off but currently blood sugars appropriate thus we will continue however outpatient this may need to be further assessed.. #7. CAD: Status post PCI 03/25/2021, we will continue patient aspirin, Pradaxa, statin, metoprolol, losartan. #8. Hypertension: Continue home regimen including losartan, metoprolol, IV Bumex and metolazone as noted above, PRN hydralazine. #9. Hyperlipidemia: We will continue patient on statin therapy. #10. Hypothyroidism: We will continue patient home levothyroxine regimen, recent TSH within normal limits thus will not repeat #11. Diabetes mellitus type II, uncontrolled with chronic neuropathy with history of previous Chanel's gangrene: Recent hemoglobin A1c 06/22/2411%, poorly controlled, blood sugar upon presentation 154, hold oral home regimen, nutrition consulted for education and teaching, ADA diet, accu checks w/ ISS, continue home gabapentin regimen. #12. PAF: Sinus rhythm upon presentation, s/p pacemaker status but unclear exactly if this was for PAF or other etiology, continue metoprolol and Pradaxa home regimen. #13. Morbid Obesity: Weight loss and lifestyle changes encouraged, nutrition consulted. #14. GERD: We will continue patient on PPI. #15. Rheumatoid arthritis: As noted above patient on chronic prednisone, if symptoms are controlled certainly would benefit from consideration of de- escalation, continue as needed medications for symptom control. #16. Chronic normocytic anemia: Admission hemoglobin 10, MCV 84.1, baseline hemoglobin 9-10, stable, continue to trend. #17. Chronic Kidney Disease Stage II per GFR trending: Admission BUN/Cr 15/1.18, GFR 60, baseline renal function 1.1-1.2 primary, 07/26/24 BUN/Cr 19/1.30, repeat BMP in AM. #18. DVT prophylaxis: Continue patient home Pradaxa regimen. #19. CODE status: Full Code. Charges/Coding Visit Charges Inpatient E&M: 03450 Subs Hosp L3
[2024-07-26] MEDS: Potassium Chloride Oral Tablet 20 MEQ 40 MEQ PO (10:08)
[2024-07-26] MEDS: Ammonium Lactate 225 gm Bottle 1 APPLIC TOPICAL (10:09)
[2024-07-26] MEDS: Losartan Potassium 25 MG Tablet 12.5 MG PO ×2 (10:09→21:54)
[2024-07-26] MEDS: Aspirin E.C. 81 MG Tablet PO (10:09)
[2024-07-26] MEDS: predniSONE 10 MG Tablet PO (10:09)
[2024-07-26] MEDS: Metoprolol Tartrate 25 MG Tablet 12.5 MG PO ×2 (10:10→21:50)
[2024-07-26] MEDS: Nystatin Powder 15gm Bottle 1 APPLIC TOPICAL ×2 (10:10→21:51)
[2024-07-26] MEDS: Cefdinir 300 MG Capsule PO (10:11)
[2024-07-26] MEDS: Dabigatran Etexilate Mesylate 150 MG Capsule PO ×2 (10:11→21:48)
[2024-07-26] MEDS: Pantoprazole Sodium 40 MG Tablet PO ×2 (10:11→21:50)
[2024-07-26] MEDS: Ursodiol 250 MG Tablet PO ×2 (10:12→21:48)
[2024-07-26] MEDS: Ascorbic Acid 500 MG Tablet PO (10:12)
[2024-07-26] MEDS: metOLazone 5 MG Tablet PO ×2 (10:12→21:49)
[2024-07-26] MEDS: Sertraline 100 MG Tablet PO (10:12)
[2024-07-26] MEDS: Budesonide Respules 0.5 MG/2 ML AMPUL.NEB. INHALATION ×2 (10:45→19:36)
[2024-07-26] MEDS: Albuterol 2.5 MG/3 ML VIAL.NEB. INHALATION ×2 (10:45→19:35)
[2024-07-26 11:54] LABS: Bedside Glucose 132 mg/dL (74-106)
--- NOTE | 2024-07-26 12:46 | CHAPLAIN ---
Type of Pastoral Visit _x__ Initial Visit ___ Follow-up Visit ___ On-call Visit ___ General Patient Visit ___ Spiritual Assessment ___ Family Conference ___ Bereavement ___ Rapid Response ___ Code Blue ___ Other (describe below) Pastoral Care Referral From _x__ Patient ___ Family ___ Nurse ___ Physician ___ Tying Machine Operator ___ Key Carrier ___ Other (describe below) Sacrament/Intervention _x__ Active listening ___ Anointing ___ Episcopalian ___ Bereavement ___ Communion _x__ Paulina exploration ___ ___ Life review _x__ Prayer ___ Reconciliation ___ Sacrament of Sick _x__ Supportive presence ___ Wedding ___ Other (describe below) Pastoral Comments time was given to listen to this patient express his experience with illness, the resulting isolation from being home bound, feelings of overwhelm and anxiety, and the acknowledgement of the fear of ; pt had many questions to give to the doctor and this was accomplished when the doctor came to see him; pt is able to explore reasons for his fears and to respond to the scriptures that are given of assurances of life after ; pt is of the [place] paulina but admits his struggles are present still in the midst of expressing his paulina; validation of the thoughts and questions of the patient that these are common and expected in people; pt welcomes prayer and presence to receive more peace at this time
[2024-07-26] MEDS: Acetaminophen 325 MG Tablet 650 MG PO (13:24)
--- NOTE | 2024-07-26 13:30 | CASEMGMT ---
STANISLAW ANSARI chart review: Patient admitted 06/29-07/01/24 for anasarca. See STANISLAW ANSARI assessment from 07/01/24. Patient was discharged to home with [facility], follow-up plans, and increase in home oxygen. Patient returned to [facility] for increased SOB and edema. Patient was admitted for anasarca and started on Bumex drip. STANISLAW ANSARI in to discuss readmission and needs at discharge. Patient states he was taking his medications as prescribed and that he had follow-up appts scheduled. Patient states he was weighing self daily but go discouraged and stopped. STANISLAW Calhoun educated patient to track weight daily to monitor for water retention and increased swelling. STANISLAW ANSARI inquired if patient was following low sodium diet. Patient states he had 3 yogurts the other night and didn't realize how much sodium was in them. Patient states that county health officer has provided educations this stay. Patient states he plans to return home with resumption of [facility]. Will monitor for increase oxygen needs. Green sheet placed on chart. Patient had no further questions or concerns. CM will continue to follow this patient and plan for a safe discharge.
--- NOTE | 2024-07-26 13:43 | NS ---
Dr. Roberson wanted pt to have education on low sodium and fluid restriction. Provided pt with [facility] low sodium and fluid restriction handout. Explained the importance of follow diet d/t heart health. Discusses 1500ml fluid restriction and foods that are considered liquids. Also talked about avoiding high salt foods and low sodium alternatives. Both handouts had outpatient phone number for education/counseling after d/c. Pt was receptive of information.
--- NOTE | 2024-07-26 15:49 | CASEMGMT ---
SW met with patient. Introduced self and role at [facility]. SW explained ED SW wanted to give him some resources however, they had already brought him to the floor. SW provided patient with the packet of counseling resources. SW let patient know that may of the agencies do tele-mental health. SW also provided patient with information on food pantries and places that serve meals. Kat DOWNEY
[2024-07-26] MEDS: Sodium Chloride 0.65% 1 SPRAY SPRAY.BTL NASAL (19:04)
[2024-07-26] MEDS: diazePAM 5 MG Tablet PO (21:47)
[2024-07-26] MEDS: 0.9% Saline Lock 10 ML Syringe IV (21:47)
[2024-07-26] MEDS: Gabapentin 100 MG Capsule PO (21:47)
[2024-07-26] MEDS: Atorvastatin Calcium 40 MG Tablet PO (21:48)
[2024-07-26] MEDS: Menthol/Lanolin/Calamine/Znox 113 GM Tube 1 APPLIC TOPICAL (21:51)
[2024-07-26 23:37] LABS: Bedside Glucose 174 mg/dL (74-106)
[2024-07-27] VITALS (10 sets, daily range): BP systolic 118–134; BP diastolic 54–84; PULSE 82–98; RESP 18–20; TEMP 36.2–36.8; O2SAT 94–97; BMI 68.3
[2024-07-27] MEDS: Ondansetron 4 MG/2 ML Vial IV (03:52)
[2024-07-27] MEDS: Levothyroxine 125 MCG Tablet PO (06:12)
[2024-07-27] MEDS: Levothyroxine 150 MCG Tablet PO (06:12)
[2024-07-27 06:38] LABS: Absolute Lymphocyte Count 2.62 X10^3/uL (0.83-4.51); Absolute Neutrophil Count 8.5 X10^3/uL (2.0-7.7); Basophil# 0.05 X10^3/uL; Basophil% 0.4 % (0-1); Eosinophil# 0.24 X10^3/uL; Hematocrit 35.5 % (40-54); Hemoglobin 9.8 g/dL (13.0-16.5); Lymphocyte # 2.62 X10^3/ul (0.83-4.51); Lymphocyte % 21.4 % (19-41); Mean Corp Hgb Conc 27.6 g/dL (32-36); Mean Corpuscular Hgb 23.2 pg (27.0-32.0); Mean Corpuscular Volume 83.9 fL (80-94); Mean Platelet Vol. 9.5 fl (6.2-12.0); Monocyte# 0.78 X10^3/uL; Monocyte% 6.4 % (0-10); NRBC Flagged by Analyzer 0 % (0-5); Neutrophil # 8.48 X10^3/uL (2.7-7.7); Platelet Count 269 K/mm3 (150-450); RBC Distribution Width CV 15.9 % (11.6-14.6); RBC Distribution Width SD 48.5 fl (35.1-43.9); Red Blood Count 4.23 M/mm3 (4.6-6.2); White Blood Count 12.3 K/mm3 (4.4-11.0)
--- NOTE | 2024-07-27 06:47 | PN.HOSP_ITS ---
Reason for Visit Reason for Visit: Diagnoses Right heart failure, unspecified (07/25/24) Generalized edema (07/25/24) Subjective Subjective Patient overnight notes onset of muscle cramps and aching although less and discomfort to the legs and scrotal region with improvement of swelling. He is continue to diurese significantly. He notes he has also significantly dry mouth and is requesting transition off of Bumex drip and back to oral regimen. Discussed current evaluation and labs including mild increased creatinine and need to continue to monitor which is understandable. Patient reports that he is eager to potentially discharge to home 07/28/2024. He also does report mild nausea but no emesis. Patient denies fevers, chills, abdominal pain, chest pain or dyspnea. Objective Data Objective Data Vital Signs: Vital Signs Temp Pulse Resp BP Pulse Ox O2 Del Method O2 Flow Rate 97.2 F L 95 18 134/67 H 96 Nasal Cannula 4 07/27/24 05:00 07/27/24 05:00 07/27/24 05:00 07/27/24 05:00 07/27/24 05:00 07/27/24 05:00 07/27/24 05:00 Oxygen Flow Rate (L/min) 4 Oxygen Delivery Method Nasal Cannula Weight: 519 lb 13.6 oz Body Mass Index (BMI) 68.5 Intake & Output: Intake and Output for Last 24 Hours 07/25/24 07/26/24 07/27/24 23:59 23:59 23:59 Intake Total 480 / 480 884.73 / 1024.73 140 / 140 Output Total 1450 / 2330 7730 / 9830 2100 / 2100 Balance -970 / -1850 -6845.27 / -8805.27 -1960 / -1960 Lab / Micro Data 07/27/24 06:15 07/27/24 06:15 Labs: Laboratory Results - last 24 hr 07/26/24 06:16: Sodium 137, Potassium 3.8, Chloride 98, Carbon Dioxide 35.0 H, Anion Gap 5, BUN 19 H, Creatinine 1.30, Estim Creat Clear Calc 130.71, Est GFR (MDRD) Af Amer 74, Est GFR (MDRD) Non-Af 61, BUN/Creatinine Ratio 14.6, Glucose 238 H, Calcium 8.6, Phosphorus 3.9, Magnesium 1.7, Total Bilirubin 0.40, AST 26, ALT 32, Alkaline Phosphatase 113, Total Protein 7.1, Albumin 2.6 L, Globulin 4.5 H, Albumin/Globulin Ratio 0.6 L 07/26/24 11:36: POC Glucose 132 H 07/26/24 22:03: POC Glucose 174 H 07/27/24 06:15: WBC 12.3 H, RBC 4.23 L, Hgb 9.8 L, Hct 35.5 L, MCV 83.9, MCH 23.2 L, MCHC 27.6 L, RDW Std Deviation 48.5 H, RDW Coeff of Kris 15.9 H, Plt Count 269, MPV 9.5, Immature Gran % (Auto) 0.800, Neut % (Auto) 69.0, Lymph % (Auto) 21.4, [place] % (Auto) 6.4, Eos % (Auto) 2.0, Baso % (Auto) 0.4, Absolute Neuts (auto) 8.5 H, Absolute Lymphs (auto) 2.62, Nucleated RBC % 0 Physical Exam Narrative Physical Examination: General: Awake, alert, oriented x 3 and cooperative, seated upright in a PCU bed, notes muscle aches and discomfort as well as dry mouth requesting to transition off Bumex drip. Skin: Normal color, normal turgor, no icterus, no cyanosis except for occasional stage ecchymoses, abrasion, intertrigo improving, bilateral lower extremity venous stasis skin changes. HEENT: AT/NC, EOMI, PERRLA, MMM despite patient complains of dry mouth. Lungs: Distant breath sounds likely secondary to habitus, appropriate effort, no evidence of any distress, no rales, ronchi or wheezing. Heart: Regular rate and rhythm; no gallop, rub audible. Abdomen: Soft, morbidly obese, NTTP, distant bowel sounds, difficult to discern distention given habitus. Extremities: No cyanosis, no clubbing, significant improvement of edema, still pedal to knee 1+ edema complicated by underlying chronic lymphedema additionally, scrotal swelling is also improving but still mildly tender to palpation, see skin. Neurological: Patient awake, alert, oriented as noted, cognitive function intact; pupils equally reactive to light and accommodation, cranial nerves grossly normal, moving all 4 extremities, no focal deficits, strength improving, moderately globally decreased. Psychiatric: Affect appears normal, more interactive, emotions less labile, does have underlying anxiety and depression. 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 #1. Significant anasarca, scrotal swelling, dyspnea progressively worsening secondary to Acute on Chronic HFpEF with chronic hypoxic respiratory failure complicated by underlying COPD, obesity hypoventilation syndrome as well as BERT: Patient admitted to PCU, continue chronic oxygen supplementation, unable unfortunately to tolerate PAP therapies, initiated and continued on Bumex drip, continued metolazone oral regimen concurrently, strict I's and O's, fluid restriction, sodium restriction, daily weights, bilateral lower extremity snug mary wraps with elevation, recent echocardiogram 06/29/2024 unfortunately with poor quality secondary to habitus with an EF of 65% and stage I diastolic dysfunction and mild concentric LVH, continue to monitor electrolytes, may consider involving cardiology if necessary. Suspect patient will require several days of Bumex drip and diuresis. Upon discharge patient will need very strict sodium intake planning and fluid restriction planning with nutrition consultation requested for education and teaching. 07/25/2024 weight trending 529 lbs-> 07/26/2024 519 lbs-> 07/25/2024 517 lbs. UOP trending 07/25/24 -970 ml->07/26/24 -6845.27 ml w/ overnight into 07/27/24 -3020 ml. 07/27/24 as noted Cr rising, per discussion with patient and his preference as well will transition off of IV bumex drip today to Lasix with first dose to start this evening with continued close creatinine monitoring. #2. Uncontrolled depression, likely secondary to underlying comorbidities and #1: Patient during admission reporting depression, tearful with hospitalist upon admission, reports fear of dying especially since recent pacemaker placement, lengthy discussion per admitting hospitalist with encouragement of activities, initiated on SSRI Zoloft 100 mg at bedtime, can certainly adjust as needed and titrate upward, will need outpatient counseling with primary care at discharge. #3. Hypokalemia: Admission K+ 3.0, magnesium 1.8, supplementation given, repeat level in AM. #4. Recent suspected urinary tract infection, unclear organism outpatient: We will continue patient home cefdinir regimen but still uncertain exact etiology for usage of antibiotic therapy and from review patient is only on once daily cefdinir and it looks as though it was a 30-day fill. Attempted to clarify with primary care physician. #5. Intertrigo: Will continue nystatin regimen with skin fold care education and ongoing cleansing/pat dry before nystatin application. #6. General Debility, weakness, adult failure to thrive: Multifactorial, secondary to acute presentation and severe underlying comorbidities, maintained on fall precautions, PT/OT/case management consulted for discharge planning #7. Chronic COPD with chronic hypoxic respiratory failure 4 L NC: Will maintain on home oxygen supplementation, continue ATC budesonide, PRN albuterol, HOB, IS parameters, encourage continued tobacco cessation, will continue chronic low- dose prednisone which he is on twice daily however would benefit from considering to transition off but currently blood sugars appropriate thus we will continue however outpatient this may need to be further assessed.. #8. CAD: Status post PCI 03/25/2021, we will continue patient aspirin, Pradaxa, statin, metoprolol, losartan. #9. Hypertension: Continue home regimen including losartan, metoprolol, IV Bumex and metolazone as noted above, PRN hydralazine. #10. Hyperlipidemia: We will continue patient on statin therapy. #11. Hypothyroidism: We will continue patient home levothyroxine regimen, recent TSH within normal limits thus will not repeat #12. Diabetes mellitus type II, uncontrolled with chronic neuropathy with history of previous Chanel's gangrene: Recent hemoglobin A1c 06/22/24 11%, poorly controlled, blood sugar upon presentation 154, hold oral home regimen, nutrition consulted for education and teaching, ADA diet, accu checks w/ ISS, continue home gabapentin regimen. #13. PAF: Sinus rhythm upon presentation, s/p pacemaker status but unclear exactly if this was for PAF or other etiology, continue metoprolol and Pradaxa home regimen. #14. Morbid Obesity: Weight loss and lifestyle changes encouraged, nutrition consulted. #15. GERD: We will continue patient on PPI. #16. Rheumatoid arthritis: As noted above patient on chronic prednisone, if symptoms are controlled certainly would benefit from consideration of de- escalation, continue as needed medications for symptom control. #17. Chronic normocytic anemia: Admission hemoglobin 10, MCV 84.1, baseline hemoglobin 9-10, 07/27/24 hemoglobin 9.8, continue to trend. #18. Chronic Kidney Disease Stage II per GFR trending: Admission BUN/Cr 15/1.18, GFR 60, baseline renal function 1.1-1.2 primary, 07/27/24 BUN/creatinine 19/1.53, GFR 51, given increase mainly consider de-escalation of Bumex drip however patient is successfully diuresing and weight is dropping, as noted above 07/27/24 de-escalating off Bumex drip, continue to trend BMP. #19. DVT prophylaxis: Continue patient home Pradaxa regimen. #20. CODE status: Full Code. Charges/Coding Visit Charges Inpatient E&M: 21827 Subs Hosp L3
[2024-07-27 07:04] LABS: Bedside Glucose 150 mg/dL (74-106)
[2024-07-27] MEDS: Budesonide Respules 0.5 MG/2 ML AMPUL.NEB. INHALATION ×2 (07:06→19:03)
[2024-07-27 07:19] LABS: ALB/GLOB Ratio 0.7 RATIO (0.9-2.4); AST(SGOT) 26 U/L (15-37); Alanine Aminotransfer ALT/SGPT 31 U/L (16-61); Albumin, Serum 2.7 g/dL (3.2-5.0); Alkaline Phosphatase 115 U/L (45-117); Anion Gap 5 (5-15); BUN 19 mg/dL (7-18); BUN/Creat Ratio 12.4 RATIO (10-20); Calcium,Total 8.8 mg/dL (8.5-10.1); Chloride 91 mmol/L (98-107); Creatinine, Serum 1.53 mg/dL (0.70-1.30); EST Glomerular Filtration Rate 51 mL/min (>60); Est Glom Filt Rate - Afr Amer 61 mL/min (>60); Estimated Creatinine Clearance 110.75 ml/min; Globulin 4.1 g/dL (2.2-4.2); Glucose 159 mg/dL (74-106); Protein, Total 6.8 g/dL (6.4-8.2); Sodium Level 137 mmol/L (136-145)
[2024-07-27 08:07] LABS: Magnesium 1.8 mg/dL (1.6-2.6)
[2024-07-27] MEDS: Metoprolol Tartrate 25 MG Tablet 12.5 MG PO ×2 (08:37→23:40)
[2024-07-27] MEDS: Dabigatran Etexilate Mesylate 150 MG Capsule PO ×2 (08:40→23:44)
[2024-07-27] MEDS: predniSONE 10 MG Tablet PO ×2 (08:40→15:02)
[2024-07-27] MEDS: metOLazone 5 MG Tablet PO ×2 (08:40→23:41)
[2024-07-27] MEDS: Aspirin E.C. 81 MG Tablet PO (08:41)
[2024-07-27] MEDS: Pantoprazole Sodium 40 MG Tablet PO ×2 (08:41→23:43)
[2024-07-27] MEDS: Ascorbic Acid 500 MG Tablet PO (08:41)
[2024-07-27] MEDS: Losartan Potassium 25 MG Tablet 12.5 MG PO ×2 (08:41→23:42)
[2024-07-27] MEDS: Cefdinir 300 MG Capsule PO (08:42)
[2024-07-27] MEDS: Ursodiol 250 MG Tablet PO ×2 (08:42→23:43)
[2024-07-27] MEDS: Potassium Chloride Oral Tablet 20 MEQ 60 MEQ PO (08:43)
[2024-07-27] MEDS: Potassium Chloride Oral Tablet 20 MEQ 40 MEQ PO (08:43)
[2024-07-27] MEDS: Sertraline 100 MG Tablet PO (08:43)
[2024-07-27] MEDS: proCHLORPERazine 10 MG/2 ML Vial 5 MG IV (09:38)
[2024-07-27] MEDS: diazePAM 5 MG Tablet PO (10:34)
[2024-07-27] MEDS: Insulin Lispro 100 UNIT/ML INSULN.PEN SC ×2 (11:00→23:42)
[2024-07-27 11:33] LABS: Bedside Glucose 170 mg/dL (74-106)
[2024-07-27] MEDS: Furosemide 20 MG Tablet PO (15:01)
[2024-07-27] MEDS: Furosemide 40 MG Tablet PO (15:01)
[2024-07-27 15:47] LABS: Bedside Glucose 179 mg/dL (74-106)
[2024-07-27] MEDS: Menthol/Lanolin/Calamine/Znox 113 GM Tube 1 APPLIC TOPICAL (23:34)
[2024-07-27] MEDS: Ammonium Lactate 225 gm Bottle 1 APPLIC TOPICAL (23:35)
[2024-07-27] MEDS: Nystatin Powder 15gm Bottle 1 APPLIC TOPICAL (23:35)
[2024-07-27] MEDS: Atorvastatin Calcium 40 MG Tablet PO (23:40)
[2024-07-28] VITALS (10 sets, daily range): BP systolic 113–142; BP diastolic 42–63; PULSE 79–94; RESP 18–20; TEMP 35.7–36.6; O2SAT 94–99; BMI 68.2; BMI 66.1
[2024-07-28 00:23] LABS: Bedside Glucose 185 mg/dL (74-106)
[2024-07-28] MEDS: Gabapentin 100 MG Capsule PO ×2 (01:06→22:54)
[2024-07-28] MEDS: Levothyroxine 150 MCG Tablet PO (05:37)
[2024-07-28] MEDS: Levothyroxine 125 MCG Tablet PO (05:37)
[2024-07-28] MEDS: Albuterol 2.5 MG/3 ML VIAL.NEB. INHALATION (06:26)
[2024-07-28] MEDS: Budesonide Respules 0.5 MG/2 ML AMPUL.NEB. INHALATION ×2 (06:26→20:34)
[2024-07-28 06:28] LABS: Absolute Lymphocyte Count 2.45 X10^3/uL (0.83-4.51); Absolute Neutrophil Count 7.7 X10^3/uL (2.0-7.7); Basophil# 0.07 X10^3/uL; Basophil% 0.6 % (0-1); Eosinophil# 0.23 X10^3/uL; Hematocrit 35.4 % (40-54); Hemoglobin 9.9 g/dL (13.0-16.5); Lymphocyte # 2.45 X10^3/ul (0.83-4.51); Lymphocyte % 21.8 % (19-41); Mean Corpuscular Hgb 23.5 pg (27.0-32.0); Mean Corpuscular Volume 83.9 fL (80-94); Mean Platelet Vol. 9.5 fl (6.2-12.0); Monocyte# 0.69 X10^3/uL; Monocyte% 6.1 % (0-10); NRBC Flagged by Analyzer 0.2 % (0-5); Neutrophil # 7.73 X10^3/uL (2.7-7.7); Neutrophil % 68.8 % (47-70); Platelet Count 236 K/mm3 (150-450); RBC Distribution Width SD 48.7 fl (35.1-43.9); Red Blood Count 4.22 M/mm3 (4.6-6.2); White Blood Count 11.3 K/mm3 (4.4-11.0)
[2024-07-28 06:34] LABS: Bedside Glucose 151 mg/dL (74-106)
[2024-07-28 06:50] LABS: ALB/GLOB Ratio 0.6 RATIO (0.9-2.4); AST(SGOT) 23 U/L (15-37); Alanine Aminotransfer ALT/SGPT 34 U/L (16-61); Albumin, Serum 2.6 g/dL (3.2-5.0); Alkaline Phosphatase 108 U/L (45-117); Anion Gap 6 (5-15); BUN 21 mg/dL (7-18); BUN/Creat Ratio 15.3 RATIO (10-20); Calcium,Total 8.7 mg/dL (8.5-10.1); Chloride 91 mmol/L (98-107); Creatinine, Serum 1.37 mg/dL (0.70-1.30); EST Glomerular Filtration Rate 57 mL/min (>60); Est Glom Filt Rate - Afr Amer 69 mL/min (>60); Estimated Creatinine Clearance 123.58 ml/min; Globulin 4.4 g/dL (2.2-4.2); Glucose 165 mg/dL (74-106); Potassium 3.1 mmol/L (3.5-5.1); Sodium Level 136 mmol/L (136-145)
--- NOTE | 2024-07-28 07:54 | PN.HOSP_ITS ---
Reason for Visit Reason for Visit: Diagnoses Right heart failure, unspecified (07/25/24) Generalized edema (07/25/24) Subjective Subjective Patient with no acute events overnight per self and nursing report. He notes easier breathing and less edema to the legs and scrotal region. He was initially eager for discharge to home however he has not been up much or working as much as desired with physical and occupational therapies. Attempts to get him up and move him he did note some lightheadedness and dizziness which given his significant diuresis is likely the source which was discussed at length. Patient is amenable to remaining for ongoing evaluations for therapies. Patient denies fevers, chills, nausea, emesis, abdominal pain, chest pain or dyspnea. Objective Data Objective Data Vital Signs: Vital Signs Temp Pulse Resp BP Pulse Ox O2 Del Method O2 Flow Rate 97.8 F 89 20 H 142/53 H 94 Nasal Cannula 4 07/28/24 05:32 07/28/24 06:27 07/28/24 06:27 07/28/24 05:32 07/28/24 06:27 07/28/24 06:27 07/28/24 06:27 Oxygen Flow Rate (L/min) 4 Oxygen Delivery Method Nasal Cannula Weight: 516 lb 15.744 oz Body Mass Index (BMI) 68.2 Intake & Output: Intake and Output for Last 24 Hours 07/26/24 07/27/24 07/28/24 23:59 23:59 23:59 Intake Total 884.73 / 1024.73 330 / 330 Output Total 7730 / 9830 5150 / 6150 1500 / 1500 Balance -6845.27 / -8805.27 -4820 / -5820 -1500 / -1500 Lab / Micro Data 07/28/24 06:06 07/28/24 06:06 Labs: Laboratory Results - last 24 hr 07/27/24 06:15: Magnesium 1.8 07/27/24 10:59: POC Glucose 170 H 07/27/24 15:00: POC Glucose 179 H 07/27/24 23:18: POC Glucose 185 H 07/28/24 05:36: POC Glucose 151 H 07/28/24 06:06: WBC 11.3 H, RBC 4.22 L, Hgb 9.9 L, Hct 35.4 L, MCV 83.9, MCH 23.5 L, MCHC 28.0 L, RDW Std Deviation 48.7 H, RDW Coeff of Kris 16.0 H, Plt Count 236, MPV 9.5, Immature Gran % (Auto) 0.700, Neut % (Auto) 68.8, Lymph % (Auto) 21.8, [place] % (Auto) 6.1, Eos % (Auto) 2.0, Baso % (Auto) 0.6, Absolute Neuts (auto) 7.7, Absolute Lymphs (auto) 2.45, Nucleated RBC % 0.2, Sodium 136, Potassium 3.1 L, Chloride 91 L, Carbon Dioxide 39.0 H, Anion Gap 6, BUN 21 H, C reatinine 1.37 H, Estim Creat Clear Calc 123.58, Est GFR (MDRD) Af Amer 69, Est GFR (MDRD) Non-Af 57 L, BUN/Creatinine Ratio 15.3, Glucose 165 H, Calcium 8.7, Total Bilirubin 0.70, AST 23, ALT 34, Alkaline Phosphatase 108, Total Protein 7.0, Albumin 2.6 L, Globulin 4.4 H, Albumin/Globulin Ratio 0.6 L Physical Exam Narrative Physical Examination: General: Awake, alert, oriented x 3 and cooperative, seated upright in a PCU bed, denies any complaints however later in the morning he did have some mild lightheadedness and dizziness with activity attempts. Skin: Normal color, normal turgor, no icterus, no cyanosis except for occasional stage ecchymoses, abrasion, intertrigo improving, bilateral lower extremity venous stasis skin changes. HEENT: AT/NC, EOMI, PERRLA, MMM. Lungs: Distant breath sounds, appropriate effort, no evidence of any distress, no rales, ronchi or wheezing. Heart: Regular rate and rhythm; no gallop, rub audible. Abdomen: Soft, morbidly obese, NTTP, distant bowel sounds, difficult to discern distention given habitus. Extremities: No cyanosis, no clubbing, significant improvement of edema, still chronic lymphedema present, scrotal swelling improved. Neurological: Patient awake, alert, oriented as noted, cognitive function intact; pupils equally reactive to light and accommodation, cranial nerves grossly normal, moving all 4 extremities, no focal deficits, strength improving, moderately globally decreased. Psychiatric: Affect appears normal, does have underlying anxiety and depression. 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 #1. Significant anasarca, scrotal swelling, dyspnea progressively worsening secondary to Acute on Chronic HFpEF with chronic hypoxic respiratory failure complicated by underlying COPD, obesity hypoventilation syndrome as well as BERT: Patient admitted to PCU, continue chronic oxygen supplementation, unable unfortunately to tolerate PAP therapies, initiated and continued on Bumex drip, continued metolazone oral regimen concurrently, strict I's and O's, fluid restriction, sodium restriction, daily weights, bilateral lower extremity snug mary wraps with elevation, recent echocardiogram 06/29/2024 unfortunately with poor quality secondary to habitus with an EF of 65% and stage I diastolic dysfunction and mild concentric LVH, continue to monitor electrolytes, may consider involving cardiology if necessary. Suspect patient will require several days of Bumex drip and diuresis. Upon discharge patient will need very strict sodium intake planning and fluid restriction planning with nutrition consultation requested for education and teaching. 07/25/2024 weight trending 529 lbs-> 07/26/2024 519 lbs-> 07/25/2024 517 lbs. UOP trending 07/25/24 -970 ml->07/26/24 -6845.27 ml w/ overnight into 07/27/24 -3020 ml. 07/27/24 as noted Cr rising, per discussion with patient and his preference as well 07/27/2024 transition off IV bumex drip today to Lasix transition. 07/28/2024 weight 516 pounds 15.7 pounds 4 ounces. 07/28/2024 attempts for up and moving with oxygen trial with some lightheadedness and dizziness in addition to the fact the patient has not been moving markedly with therapies therefore plans continued inpatient status with possible reevaluation of discharge 07/29/2024. Patient is adamant that he does not want to go to skilled but is willing to have home therapies. #2. Uncontrolled depression, likely secondary to underlying comorbidities and #1: Patient during admission reporting depression, tearful with hospitalist upon admission, reports fear of dying especially since recent pacemaker placement, lengthy discussion per admitting hospitalist with encouragement of activities, initiated on SSRI Zoloft 100 mg at bedtime, can certainly adjust as needed and titrate upward, will need outpatient counseling with primary care at discharge. #3. Hypokalemia: Admission K+ 3.0, magnesium 1.8, supplementation given, 07/28/2024 hemoglobin 3.1, additional supplementation administered, will repeat level in AM. #4. Recent suspected urinary tract infection, unclear organism outpatient: We will continue patient home cefdinir regimen but still uncertain exact etiology for usage of antibiotic therapy and from review patient is only on once daily cefdinir and it looks as though it was a 30-day fill. Attempting to clarify. #5. Intertrigo: Will continue nystatin regimen with skin fold care education and ongoing cleansing/pat dry before nystatin application. #6. General Debility, weakness, adult failure to thrive: Multifactorial, secondary to acute presentation and severe underlying comorbidities, maintained on fall precautions, PT/OT/case management consulted for discharge planning #7. Chronic COPD with chronic hypoxic respiratory failure 4 L NC: Will maintain on home oxygen supplementation, continue ATC budesonide, PRN albuterol, HOB, IS parameters, encourage continued tobacco cessation, will continue chronic low- dose prednisone which he is on twice daily however would benefit from considering to transition off but currently blood sugars appropriate thus we will continue however outpatient this may need to be further assessed. #8. CAD: Status post PCI 03/25/2021, we will continue patient aspirin, Pradaxa, statin, metoprolol, losartan. #9. Hypertension: Continue home regimen including losartan, metoprolol, IV Bumex and metolazone as noted above transitioned off 07/27/2024 to home oral Lasix regimen, PRN hydralazine. #10. Hyperlipidemia: We will continue patient on statin therapy. #11. Hypothyroidism: We will continue patient home levothyroxine regimen, recent TSH within normal limits thus will not repeat #12. Diabetes mellitus type II, uncontrolled with chronic neuropathy with history of previous Chanel's gangrene: Recent hemoglobin A1c 06/22/24 11%, poorly controlled, blood sugar upon presentation 154, hold oral home regimen, nutrition consulted for education and teaching, ADA diet, accu checks w/ ISS, continue home gabapentin regimen, plan early follow-up with primary care physician will benefit from ongoing nutrition evaluation per their direction and frequent follow-up Q 3-month visits. #13. PAF: Sinus rhythm upon presentation, s/p pacemaker status but unclear exactly if this was for PAF or other etiology, continue metoprolol and Pradaxa home regimen. #14. Morbid Obesity: Weight loss and lifestyle changes encouraged, nutrition consulted. #15. GERD: We will continue patient on PPI. #16. Rheumatoid arthritis: As noted above patient on chronic prednisone, if symptoms are controlled certainly would benefit from consideration of de- escalation, continue as needed medications for symptom control. #17. Chronic normocytic anemia: Admission hemoglobin 10, MCV 84.1, baseline hemoglobin 9-10, 07/28/2024 hemoglobin 9.9, continue to trend. #18. Chronic Kidney Disease Stage II per GFR trending: Admission BUN/Cr 15/1.18, GFR 60, baseline renal function 1.1-1.2 primary, 07/27/24 BUN/creatinine 19/1.53, GFR 51, 07/27/2024 de-escalated off IV Bumex to home oral Lasix regimen. 07/28/2024 BUN/creatinine 21/1.37, GFR 57. Repeat CMP in AM. #19. DVT prophylaxis: Continue patient home Pradaxa regimen. #20. CODE status: Full Code. Charges/Coding Visit Charges Inpatient E&M: 57770 Subs Hosp L2
[2024-07-28] MEDS: Potassium Chloride Oral Tablet 20 MEQ 40 MEQ PO (08:31)
[2024-07-28] MEDS: Furosemide 40 MG Tablet PO ×2 (08:32→16:42)
[2024-07-28] MEDS: Ascorbic Acid 500 MG Tablet PO (08:32)
[2024-07-28] MEDS: predniSONE 10 MG Tablet PO ×2 (08:32→16:42)
[2024-07-28] MEDS: Dabigatran Etexilate Mesylate 150 MG Capsule PO ×2 (08:32→22:37)
[2024-07-28] MEDS: Sertraline 100 MG Tablet PO (08:33)
[2024-07-28] MEDS: Pantoprazole Sodium 40 MG Tablet PO ×2 (08:33→22:38)
[2024-07-28] MEDS: Aspirin E.C. 81 MG Tablet PO (08:33)
[2024-07-28] MEDS: Cefdinir 300 MG Capsule PO (08:33)
[2024-07-28] MEDS: Losartan Potassium 25 MG Tablet 12.5 MG PO ×2 (08:33→22:39)
[2024-07-28] MEDS: metOLazone 5 MG Tablet PO ×2 (08:33→22:40)
[2024-07-28] MEDS: Metoprolol Tartrate 25 MG Tablet 12.5 MG PO ×2 (08:34→22:37)
[2024-07-28] MEDS: Furosemide 20 MG Tablet PO ×2 (08:34→16:41)
[2024-07-28] MEDS: Ursodiol 250 MG Tablet PO ×2 (08:34→22:40)
--- NOTE | 2024-07-28 11:23 | CASEMGMT ---
Addendum entered by Jung Cassidy 07/28/24 14:04: Pt states his CM is Kamala Bhatia, phone #: [phone]. WILLIS Ley, aware. Addendum entered by Jung Cassidy 07/28/24 11:58: Pt states he has a waiver and has aides through [employer] 7 days a week for 5 hours a day. Addendum entered by Jung Cassidy 07/28/24 11:52: [facility] Van transport arranged for 3:30 PM tomorrow (Thursday). Original Note: STANISLAW ANSARI NOTE: Discharge order was in. RN CM to room. Pt sitting on edge of bed, working w/therapy and RN. Pt c/o dizziness when standing up and only able to take a few steps. Pt assisted back to bed. Pt states he still wishes he would be able to go home today but then stated he does not feel, d/t the dizziness, that he would be safe to go home today. Dr Roberson has been notified and states will cancel discharge. STANISLAW ANSARI discussed dc plan w/pt. He states once the dizziness resolves, he feels he will be safe to discharge home and states will not go to a SNF, stating he has done that before and does not want to go back again. Home O2 testing completed. No additional home o2 needed per Deirdre DOVER. Pt requesting [facility] van transport home @ dc. He was made aware he would need to get in/out of van independently and also into his home, as new car driver is not able to assist him. He voices understanding and states he feels he will be able to this on his own. Pt states he will also need portable O2 tank delivered to the hospital, as he does not have one to go home on. Call placed to Roselyn @ [facility]. She was made aware. She states they can deliver a tank to [facility] tomorrow @ discharge. Call placed to Isabel @ [facility]. She was made aware pt not discharging home today, anticipate tomorrow. Karol ABRAHAM RN, CM
[2024-07-28] MEDS: Insulin Lispro 100 UNIT/ML INSULN.PEN SC ×2 (11:49→16:39)
[2024-07-28 12:11] LABS: Bedside Glucose 233 mg/dL (74-106)
[2024-07-28] MEDS: Ammonium Lactate 225 gm Bottle 1 APPLIC TOPICAL (13:25)
[2024-07-28] MEDS: Nystatin Powder 15gm Bottle 1 APPLIC TOPICAL (13:26)
--- NOTE | 2024-07-28 14:04 | CHAPLAIN ---
Type of Pastoral Visit ___ Initial Visit _x__ Follow-up Visit ___ On-call Visit ___ General Patient Visit ___ Spiritual Assessment ___ Family Conference ___ Bereavement ___ Rapid Response ___ Code Blue ___ Other (describe below) Pastoral Care Referral From _x__ Patient ___ Family ___ Nurse ___ Physician ___ Pl[employer] Point [employer] Supervisor ___ Roundhouse Worker ___ Other (describe below) Sacrament/Intervention _x__ Active listening ___ Anointing ___ Sabianism ___ Bereavement ___ Communion _x__ Paulina exploration ___ ___ Life review _x__ Prayer ___ Reconciliation ___ Sacrament of Sick ___ Supportive presence ___ Wedding ___ Other (describe below) Pastoral Comments patient speaks more optimistically and yet cautiously about his progress; pt engages in a two way conversation as he asks questions as well; pt had no Jas and neither did my mother who lives alone with me; pt hopes to be able to go home soon and to eventually making more strides where he can be involved with life again; 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
--- NOTE | 2024-07-28 14:20 | CASEMGMT ---
Social Work Pt's medical case worker with [employer] is Kadeem Bhatia([phone]). SW called, message left letting her know that pt is here in the hospital and to call back w/any questions. SAL Gavin
[2024-07-28 17:04] LABS: Bedside Glucose 213 mg/dL (74-106)
[2024-07-28] MEDS: Atorvastatin Calcium 40 MG Tablet PO (22:37)
--- NOTE | 2024-07-28 23:30 | NURSING ---
pt. refused blood sugar check- stated he was tired of being poked. Explained to pt. the importance of checking his blood sugar and that i would need to in order to administer insulin. Pt understood but still refused to allow me to check it.
[2024-07-29] MEDS: Ammonium Lactate 225 gm Bottle 1 APPLIC TOPICAL ×2 (00:20→10:29)
[2024-07-29 03:00] VITALS: BP 140/67; PULSE 108; RESP 20; TEMP 36.1; O2SAT 96
[2024-07-29 05:52] VITALS: BMI 65.0
[2024-07-29] MEDS: Levothyroxine 150 MCG Tablet PO (06:26)
[2024-07-29] MEDS: Levothyroxine 125 MCG Tablet PO (06:26)
[2024-07-29] MEDS: Insulin Lispro 100 UNIT/ML INSULN.PEN SC ×2 (06:30→12:11)
[2024-07-29] MEDS: Budesonide Respules 0.5 MG/2 ML AMPUL.NEB. INHALATION (06:48)
[2024-07-29 06:49] VITALS: PULSE 93; RESP 20; O2SAT 93
[2024-07-29 06:50] LABS: Bedside Glucose 188 mg/dL (74-106)
--- NOTE | 2024-07-29 06:55 | PCM.PN.HOSP ---
Reason for Visit Reason for Visit: Diagnoses Right heart failure, unspecified (07/25/24) Generalized edema (07/25/24) Subjective Subjective Patient with no acute events overnight per self and per nursing report. He notes has been moving with greater ease and less dizziness. He does not feel like he is can to fall and he is amenable to discharging to home. Did discuss and offer consideration of rehab or skilled transition and he declined. Patient is been up in the room without any obvious issues moving on his own. He notes he continues to breathe well and notes that his legs feel improved with less swelling including his scrotum also. Patient denies fevers, chills, nausea, emesis, abdominal pain, chest pain or dyspnea. Objective Data Objective Data Vital Signs: Vital Signs Temp Pulse Resp BP Pulse Ox O2 Del Method O2 Flow Rate 96.9 F L 93 20 H 140/67 H 93 Nasal Cannula 4 07/29/24 03:00 07/29/24 06:49 07/29/24 06:49 07/29/24 03:00 07/29/24 06:49 07/29/24 06:49 07/29/24 06:49 Oxygen Flow Rate (L/min) 4 Oxygen Delivery Method Nasal Cannula Weight: 493 lb 6.312 oz Body Mass Index (BMI) 65.0 Intake & Output: Intake and Output for Last 24 Hours 07/27/24 07/28/24 07/29/24 23:59 23:59 23:59 Intake Total 330 / 330 250 / 550 550 / 550 Output Total 5150 / 6150 3000 / 4200 1999 / 1999 Balance -4820 / -5820 -2750 / -3650 -1450 / -1450 Lab / Micro Data 07/29/24 07:08 07/29/24 07:08 Labs: Laboratory Results - last 24 hr 07/28/24 11:48: POC Glucose 233 H 07/28/24 16:38: POC Glucose 213 H 07/29/24 06:28: POC Glucose 188 H Physical Exam Narrative Physical Examination: General: Awake, alert, oriented x 3 and cooperative, seated upright in a PCU bed, notes feeling improved, less dizzy. Skin: Normal color, normal turgor, no icterus, no cyanosis except for occasional stage ecchymoses, abrasion, intertrigo improving, bilateral lower extremity venous stasis skin changes. HEENT: AT/NC, EOMI, PERRLA, MMM. Lungs: Distant breath sounds, appropriate effort, no evidence of any distress, no rales, ronchi or wheezing. Heart: Regular rate and rhythm; no gallop, rub audible. Abdomen: Soft, morbidly obese, NTTP, distant bowel sounds, difficult to discern distention given habitus. Extremities: No cyanosis, no clubbing, significant improvement of edema. Neurological: Patient awake, alert, oriented as noted, cognitive function intact; pupils equally reactive to light and accommodation, cranial nerves grossly normal, moving all 4 extremities, no focal deficits, strength improving, mildly to moderately globally decreased and in large part secondary to significant morbidly obese habitus, improved movement. Psychiatric: Affect appears normal, does have underlying anxiety and depression. 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 #1. Significant anasarca, scrotal swelling, dyspnea progressively worsening secondary to Acute on Chronic HFpEF with chronic hypoxic respiratory failure complicated by underlying COPD, obesity hypoventilation syndrome as well as BERT: Patient admitted to PCU, continue chronic oxygen supplementation, unable unfortunately to tolerate PAP therapies, initiated and continued on Bumex drip, continued metolazone oral regimen concurrently, strict I's and O's, fluid restriction, sodium restriction, daily weights, bilateral lower extremity snug mary wraps with elevation, recent echocardiogram 06/29/2024 unfortunately with poor quality secondary to habitus with an EF of 65% and stage I diastolic dysfunction and mild concentric LVH, continue to monitor electrolytes, may consider involving cardiology if necessary. Suspect patient will require several days of Bumex drip and diuresis. Upon discharge patient will need very strict sodium intake planning and fluid restriction planning with nutrition consultation requested for education and teaching. 07/25/2024 weight trending 529 lbs-> 07/26/2024 519 lbs-> 07/25/2024 517 lbs. UOP trending 07/25/24 -970 ml->07/26/24 -6845.27 ml w/ overnight into 07/27/24 -3020 ml. 07/27/24 as noted Cr rising, per discussion with patient and his preference as well 07/27/2024 transition off IV bumex drip today to Lasix transition. 07/28/2024 weight 516 pounds 15.7 pounds 4 ounces. 07/28/2024 attempts for up and moving with oxygen trial with some lightheadedness and dizziness in addition to the fact the patient has not been moving markedly with therapies therefore plans continued inpatient status with possible reevaluation of discharge 07/29/2024. 07/29/2024 patient with increased movement and activities with resolution of previous reported significant dizziness which again is suspected secondary to significant diuresis. Did offer consideration of ongoing therapies with potential skilled versus rehab and patient declined and was eager for discharge to home 07/29/2024. #2. Uncontrolled depression, likely secondary to underlying comorbidities and #1: Patient during admission reporting depression, tearful with hospitalist upon admission, reports fear of dying especially since recent pacemaker placement, lengthy discussion per admitting hospitalist with encouragement of activities, initiated on SSRI Zoloft 100 mg at bedtime, can certainly adjust as needed and titrate upward, will need outpatient counseling with primary care at discharge. #3. Hypokalemia: Admission K+ 3.0, magnesium 1.8, supplementation given, 07/28/2024 hemoglobin 3.1-> 07/29/2024 3.0, additional supplementation administered in addition to daily supplementation. Patient during admission has been resistant to taking supplementation of potassium. Would plan to have repeat BMP outpatient in 3 to 5 days. #4. Recent suspected urinary tract infection, unclear organism outpatient: We will continue patient home cefdinir regimen but still uncertain exact etiology for usage of antibiotic therapy and from review patient is only on once daily cefdinir and it looks as though it was a 30-day fill. Attempting to clarify but appears may be for infection prevention but given this recommended hold on this medication and we discussion with primary care physician and discontinuation of primarily for prophylaxis as chronic usage will put patient at risk for GI issues along with potential resistance. #5. Intertrigo: Continued nystatin regimen with skin fold care education and ongoing cleansing/pat dry before nystatin application. #6. General Debility, weakness, adult failure to thrive: Multifactorial, secondary to acute presentation and severe underlying comorbidities, maintained on fall precautions, PT/OT/case management consulted for discharge planning #7. Chronic COPD with chronic hypoxic respiratory failure 4 L NC: Will maintain on home oxygen supplementation, continue ATC budesonide, PRN albuterol, HOB, IS parameters, encourage continued tobacco cessation, will continue chronic low-dose prednisone which he is on twice daily however would benefit from considering to transition off but currently blood sugars appropriate thus we will continue however outpatient this may need to be further assessed. #8. CAD: Status post PCI 03/25/2021, we will continue patient aspirin, Pradaxa, statin, metoprolol, losartan. #9. Hypertension: Continue home regimen including losartan, metoprolol, IV Bumex and metolazone as noted above transitioned off 07/27/2024 to home oral Lasix regimen, PRN hydralazine. #10. Hyperlipidemia: We will continue patient on statin therapy. #11. Hypothyroidism: We will continue patient home levothyroxine regimen, recent TSH within normal limits thus will not repeat #12. Diabetes mellitus type II, uncontrolled with chronic neuropathy with history of previous Chanel's gangrene: Recent hemoglobin A1c 06/22/24 11%, poorly controlled, blood sugar upon presentation 154, hold oral home regimen, nutrition consulted for education and teaching, ADA diet, accu checks w/ ISS, continue home gabapentin regimen, plan early follow-up with primary care physician will benefit from ongoing nutrition evaluation per their direction and frequent follow-up Q 3-month visits. #13. PAF: Sinus rhythm upon presentation, s/p pacemaker status but unclear exactly if this was for PAF or other etiology, continue metoprolol and Pradaxa home regimen. #14. Morbid Obesity: Weight loss and lifestyle changes encouraged, nutrition consulted. #15. GERD: We will continue patient on PPI. #16. Rheumatoid arthritis: As noted above patient on chronic prednisone, if symptoms are controlled certainly would benefit from consideration of de-escalation, continue as needed medications for symptom control. #17. Chronic normocytic anemia: Admission hemoglobin 10, MCV 84.1, baseline hemoglobin 9-10, 07/28/2024 hemoglobin 9.9, continue to trend. #18. Chronic Kidney Disease Stage II per GFR trending: Admission BUN/Cr 15/1.18, GFR 60, baseline renal function 1.1-1.2 primary, 07/27/24 BUN/creatinine 19/1.53, GFR 51, 07/27/2024 de-escalated off IV Bumex to home oral Lasix regimen. 07/29/2024 BUN/creatinine 26/1.57, GFR 49, mildly increased, not unexpected given recent prolonged IV Bumex drip. Will need to have repeat BMP within 3 to 5 days at follow-up with primary care physician. #19. DVT prophylaxis: Continue patient home Pradaxa regimen. #20. CODE status: Full Code. Charges/Coding Visit Charges Inpatient E&M: 81825 Subs Hosp L2
[2024-07-29 07:47] LABS: Absolute Lymphocyte Count 2.59 X10^3/uL (0.83-4.51); Basophil# 0.06 X10^3/uL; Basophil% 0.4 % (0-1); Eosinophil# 0.28 X10^3/uL; Hematocrit 35.6 % (40-54); Hemoglobin 9.8 g/dL (13.0-16.5); Lymphocyte # 2.59 X10^3/ul (0.83-4.51); Lymphocyte % 18.7 % (19-41); Mean Corp Hgb Conc 27.5 g/dL (32-36); Mean Corpuscular Hgb 23.2 pg (27.0-32.0); Mean Corpuscular Volume 84.4 fL (80-94); Mean Platelet Vol. 9.4 fl (6.2-12.0); Monocyte# 0.83 X10^3/uL; NRBC Flagged by Analyzer 0 % (0-5); Neutrophil # 9.97 X10^3/uL (2.7-7.7); Platelet Count 276 K/mm3 (150-450); RBC Distribution Width CV 16.2 % (11.6-14.6); RBC Distribution Width SD 49.1 fl (35.1-43.9); Red Blood Count 4.22 M/mm3 (4.6-6.2); White Blood Count 13.9 K/mm3 (4.4-11.0)
[2024-07-29 08:37] VITALS: BP 151/64; PULSE 91; RESP 19; TEMP 36.9; O2SAT 94
[2024-07-29] MEDS: Acetaminophen 325 MG Tablet 650 MG PO (08:39)
[2024-07-29] MEDS: Potassium Chloride Oral Tablet 20 MEQ 40 MEQ PO (08:40)
[2024-07-29] MEDS: Furosemide 20 MG Tablet PO (08:40)
[2024-07-29] MEDS: Sertraline 100 MG Tablet PO (08:40)
[2024-07-29] MEDS: Furosemide 40 MG Tablet PO (08:40)
[2024-07-29] MEDS: Aspirin E.C. 81 MG Tablet PO (08:40)
[2024-07-29] MEDS: predniSONE 10 MG Tablet PO (08:41)
[2024-07-29] MEDS: Dabigatran Etexilate Mesylate 150 MG Capsule PO (08:41)
[2024-07-29] MEDS: Pantoprazole Sodium 40 MG Tablet PO (08:41)
[2024-07-29] MEDS: Ursodiol 250 MG Tablet PO (08:41)
[2024-07-29] MEDS: Losartan Potassium 25 MG Tablet 12.5 MG PO (08:41)
[2024-07-29 08:42] VITALS: PULSE 91
[2024-07-29] MEDS: Cefdinir 300 MG Capsule PO (08:42)
[2024-07-29] MEDS: Ascorbic Acid 500 MG Tablet PO (08:42)
[2024-07-29] MEDS: metOLazone 5 MG Tablet PO (08:42)
[2024-07-29] MEDS: Metoprolol Tartrate 25 MG Tablet 12.5 MG PO (08:42)
[2024-07-29 09:52] LABS: ALB/GLOB Ratio 0.6 RATIO (0.9-2.4); AST(SGOT) 22 U/L (15-37); Alanine Aminotransfer ALT/SGPT 31 U/L (16-61); Albumin, Serum 2.6 g/dL (3.2-5.0); Alkaline Phosphatase 108 U/L (45-117); Anion Gap 8 (5-15); BUN 26 mg/dL (7-18); BUN/Creat Ratio 16.6 RATIO (10-20); Chloride 87 mmol/L (98-107); Creatinine, Serum 1.57 mg/dL (0.70-1.30); EST Glomerular Filtration Rate 49 mL/min (>60); Est Glom Filt Rate - Afr Amer 59 mL/min (>60); Estimated Creatinine Clearance 104.58 ml/min; Globulin 4.5 g/dL (2.2-4.2); Glucose 194 mg/dL (74-106); Protein, Total 7.1 g/dL (6.4-8.2); Sodium Level 135 mmol/L (136-145)
--- NOTE | 2024-07-29 09:58 | CASEMGMT ---
Social Work Physician had mentioned to SW that he may benefit from an acute rehab referral. SW spoke w/pt, he states wants to go home. SW let him know will be d/c today. He plans to call his mom to pick him up. SW did let him know the hospital van is set up for 3:30pm, pt states he does think he can get in and out of the van. If his mother can pick him up the van transport can be cancelled. WILLIS updated physician, she plans to d/c pt today. SAL Gavin
[2024-07-29] MEDS: Potassium Chloride Oral Tablet 20 MEQ 60 MEQ PO (10:27)
[2024-07-29] MEDS: Nystatin Powder 15gm Bottle 1 APPLIC TOPICAL (10:29)
[2024-07-29 11:38] LABS: Bedside Glucose 226 mg/dL (74-106)
--- NOTE | 2024-07-29 11:52 | DCINST_ITS ---
Discharge Instructions Diet Discharge Diet: - (Continue ADA 1800 calorie diet/Attempt 1750 cc free water daily maximum. This may need to be adjusted and potentially relaxed but best to attempt to continue. Please keep log of your diet intake to bring to your primary care and cardiology follow-up. ) DC O2, CPAP, BIPAP needs RN Home O2 Qualification: Home O2 Qualification: Is the patient on home oxygen Yes 07/28/24 10:40 Home O2 Qualification: AT REST 1-Pulse Ox at rest 99 07/28/24 10:40 1- Oxygen flow rate at rest 4 07/28/24 10:40 Home O2 Qualification: WITH AMBULATION 1- Pulse Ox with ambulation 94 07/28/24 10:40 1- Oxygen Flow Rate with 4 07/28/24 10:40 ambulation Home O2 Discharge instructions: Yes Type of respiratory needs?: Oxygen Oxygen frequency: Continuous Continuous oxygen liters per minute: 4 Dressing / Incision Discharge Activity: - (Encourage continued routine activity in the home. Out of bed with all meals. Routine ambulating around the house at least 3-5x/day. ) May resume sexual activity in: 10-14 days Weight Bearing Status: Weight bearing as tolerated Keep extremity elevated above heart level: - (Please continue scrotal elevation with pillows in addition to bilateral lower extremity elevation ideally above the heart to assist with swelling prevention and decrease.) Dressing / Incision Call your doctor if you observe: Fever of 101 or Higher, Shortness of breath, Dizziness (Worsening.), Swelling in the ankles, Chest pain, Increased palpitations (irregular heartbeat), Calf discomfort, Uncontrolled pain and - (Weight gain > 5 lbs.) Follow Up Care Test Results: Test results from this visit will be discussed in further detail at your follow- up appointment, if applicable. Discharge Plan Admission Admit Date/Time: 07/25/24 12:47 Primary Reason for Your Visit: Acute HFpEF w/ Chronic Hypoxic Respiratory Failure, Depression Attending Provider: Mary Roberson Primary Care Provider: Ida Amaya Consulting Providers: Viktoriya Gross Instructions Patient Instructions: Heart Failure: Tracking Your Weight, Coping with Heart Failure, Heart Failure: Medications to Help Your Heart Additional Instructions / Restrictions: ADDITIONAL DISCHARGE INSTRUCTIONS/INFORMATION: #1. Significant anasarca, scrotal swelling, dyspnea progressively worsening secondary to Acute on Chronic HFpEF with chronic hypoxic respiratory failure complicated by underlying COPD, obesity hypoventilation syndrome as well as BERT: --Treated initially with bumex drip with notable weight decrease/diuresis eventually transitioned back to oral lasix regimen and ongoing metolazone oral regimen. --Encourage continued 2000 cc fluid intake restriction upon discharge although depending on weight trending this may need to be further adjusted. --Strongly encourage low sodium diet. --Strongly encourage continued bilaterally lower extremity elevation above your heart when seated and in bed. --Avoid sleeping in a chair as this will contribute to lower extremity and scrotal swelling. --Continue scrotal elevation with a pillow when seated for a prolonged time/sleeping as able to assist with continued swelling reduction. --Recent echocardiogram 06/29/2024 unfortunately with poor quality secondary to habitus with an EF of 65% and stage I diastolic dysfunction and mild concentric LVH thus not repeat. --Weight trending 07/25/2024 529 lbs-> 07/26/2024 519 lbs-> 07/27/2024 517 lbs- >07/28/24 501 lbs. --Encourage you to continue to perform daily weights at the same time of day, ideally in the AM upon awaking after using the restroom and keep a log to bring to your follow-up physician visits. In addition, if your weight increases by > 5 lbs please immediately contact your primary care physician or ideally the Cardiology office once established. --Please follow-up with Cardiology as requested to establish and also your primary care physician. --Please have follow-up basic metabolic panel at follow-up with primary care. #2. Uncontrolled depression, likely secondary to underlying comorbidities and #1: --During admission reporting depression, reports of fear of dying especially since recent pacemaker placement. --Started on SSRI Zoloft 100 mg at bedtime which can certainly be further adjusted as needed. --Recommend strongly outpatient counseling per primary care direction outpatient. #3. Intertrigo (Skin fold fungal infections): --Please continue nystatin regimen with skin fold care including twice daily gently soap/water cleansing, pat dry and then application of nystatin agent. --These folds must always be kept dry to prevent fungal infections. #4. 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 --We strongly recommend ongoing outpatient nutrition/entry level software developer evaluations and counseling per primary care direction given uncontrolled diabetes as well as #1 heart failure with need for education on a routine constant basis. #5. Chronic Kidney Disease Stage II per GFR trending: --Admission BUN/Cr 15/1.18, GFR 60, baseline renal function 1.1-1.2 primary. --Renal function trending further with 07/27/24 BUN/creatinine 19/1.53, GFR 51, 07/27/2024 de-escalated off IV Bumex to home oral Lasix regimen. 07/28/2024 BUN/creatinine 21/1.37, GFR 57-->07/29/24 BUN/Cr 26/1.57. --Encourage repeat basic metabolic panel at follow-up with primary care and also to assess potassium to assure appropriate level and monitor renal function and ascertain if lasix chronic regimen alteration needed. --You have been discharged on continued daily potassium supplementation but this may further need altered depending on follow-up labs and any further lasix regimen changes. Discharge Orders/Prescriptions Prescriptions: New sertraline 100 mg Tablet 100 mg PO DAILY 30 Days Qty: 30 0RF Continued gabapentin 100 MG capsule 100 mg PO QHS PRN (Reason: neuropathy) Patient Comments: 100-200mg albuterol sulfate [Ventolin HFA] 1 INHALER inhaler 1 - 2 puff INHALATION UD PRN (Reason: Sob &/Or Wheezing) Rx Instructions: INHALE 1 TO 2 PUFFS BY MOUTH AND INTO THE LUNGS EVERY 4 TO 6 HOURS NEEDED prednisone 10 mg Tablet 10 mg PO BID aspirin 81 mg tablet,delayed release (DR/EC) 81 mg PO DAILY levothyroxine 150 mcg tablet 150 mcg PO DAILY Rx Instructions: takes with 125mcg daily ammonium lactate 12 % cream 1 applic TOPICAL BID nystatin [Nyamyc] 100,000 unit/gram powder 1 applic TOPICAL BID Patient Comments: apply to affected area once daily to twice a day fluticasone propionate 50 mcg/actuation spray,suspension 2 spray INTRANASAL DAILY PRN (Reason: Nasal Congestion) Patient Comments: instill 2 sprays into each nostril once daily atorvastatin 40 mg tablet 40 mg PO QHS losartan 25 mg tablet 12.5 mg PO BID metoprolol tartrate 25 mg tablet 12.5 mg PO BID dabigatran etexilate [Pradaxa] 150 mg capsule 150 mg PO BID Rx Instructions: take 1 pill (150mg) in the morning then take 1 pill in the evening (150mg) for a total of 300mg. diazepam 5 mg tablet 5 mg PO TID PRN PRN (Reason: angina) ursodiol 250 mg tablet 250 mg PO BID furosemide 40 mg tablet 60 mg PO BID Rx Instructions: taking with 20mg for total daily dose of 60mg glipizide 10 mg tablet extended release 24hr 10 mg PO BID ondansetron HCl 4 mg tablet 4 mg PO Q8H PRN PRN (Reason: nausea) metolazone 5 mg tablet 5 mg PO BID omeprazole 40 mg capsule,delayed release(DR/EC) 40 mg PO BID potassium chloride [Klor-Con M20] 20 mEq tablet,ER particles/crystals 40 meq PO DAILY ascorbic acid (vitamin C) 500 mg tablet 500 mg PO DAILY levothyroxine 125 mcg tablet 125 mcg PO DAILY Rx Instructions: takes with 150mcg daily cholecalciferol (vitamin D3) 1,250 mcg (50,000 unit) capsule 1,250 mcg PO QWEEK furosemide 20 mg tablet 60 mg PO BID Rx Instructions: taking with 40mg for total daily dose of 60mg menthol-zinc oxide [Calmoseptine] 0.44-20.6 % ointment 1 applic topical QHS Held cefdinir 300 mg capsule 300 mg PO DAILY Hold Instructions: Resume on 08/05/24. Recommend discussions with PCP as unclear what this regimen is treating. If no acute infection would benefit from discontinuation. Trulicity 0.75 mg/0.5 mL pen injector 0.75 mg subcut QWEEK Hold Instructions: Resume on 08/05/24. Restart per your primary care direction. Patient Comments: ida amaya told pt to stop for now Referrals / Follow Up: Ida Amaya, DO [Primary Care Provider] - (Follow-up within 3-5 days to review admission and have repeat BMP. Also need to clarify with primary care physician ongoing cefdinir regimen daily.) Viviana Eduardo PA [Med Staff - Adv Practice Prof] - 08/08/24 1:00 pm Disposition Disposition (needs filled in before D/C Order can be placed): Home Health Service
--- NOTE | 2024-07-29 11:54 | CASEMGMT ---
Social Work SW left a message for pt's case specialist Kamala Bhatia, let her know pt will be discharged today. SAL Gavin
--- NOTE | 2024-07-29 11:55 | DS.PCM_ITS ---
Providers Date of Admission: 07/25/24 Primary Care Physician: Dr. 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 #1. Significant anasarca, scrotal swelling, dyspnea progressively worsening secondary to Acute on Chronic HFpEF with chronic hypoxic respiratory failure complicated by underlying COPD, obesity hypoventilation syndrome as well as BERT: Patient admitted to PCU, continue chronic oxygen supplementation, unable unfortunately to tolerate PAP therapies, initiated and continued on Bumex drip, continued metolazone oral regimen concurrently, strict I's and O's, fluid restriction, sodium restriction, daily weights, bilateral lower extremity snug mary wraps with elevation, recent echocardiogram 06/29/2024 unfortunately with poor quality secondary to habitus with an EF of 65% and stage I diastolic dysfunction and mild concentric LVH, continue to monitor electrolytes, may consider involving cardiology if necessary. Suspect patient will require several days of Bumex drip and diuresis. Upon discharge patient will need very strict sodium intake planning and fluid restriction planning with nutrition consultation requested for education and teaching. 07/25/2024 weight trending 529 lbs-> 07/26/2024 519 lbs-> 07/25/2024 517 lbs. UOP trending 07/25/24 -970 ml->07/26/24 -6845.27 ml w/ overnight into 07/27/24 -3020 ml. 07/27/24 as noted Cr rising, per discussion with patient and his preference as well 07/27/2024 transition off IV bumex drip today to Lasix transition. 07/28/2024 weight 516 pounds 15.7 pounds 4 ounces. 07/28/2024 attempts for up and moving with oxygen trial with some lightheadedness and dizziness in addition to the fact the patient has not been moving markedly with therapies therefore plans continued inpatient status with possible reevaluation of discharge 07/29/2024. #2. Uncontrolled depression, likely secondary to underlying comorbidities and #1: Patient during admission reporting depression, tearful with hospitalist upon admission, reports fear of dying especially since recent pacemaker placement, lengthy discussion per admitting hospitalist with encouragement of activities, initiated on SSRI Zoloft 100 mg at bedtime, can certainly adjust as needed and titrate upward, will need outpatient counseling with primary care at discharge. #3. Hypokalemia: Admission K+ 3.0, magnesium 1.8, supplementation given, 07/28/2024 hemoglobin 3.1-> 07/29/2024 3.0, additional supplementation administered with twice daily daily regimen continued in addition. Continue to trend. #4. Recent suspected urinary tract infection, unclear organism outpatient: We will continue patient home cefdinir regimen but still uncertain exact etiology for usage of antibiotic therapy and from review patient is only on once daily cefdinir and it looks as though it was a 30-day fill. Attempting to clarify. #5. Intertrigo: Will continue nystatin regimen with skin fold care education and ongoing cleansing/pat dry before nystatin application. #6. General Debility, weakness, adult failure to thrive: Multifactorial, secondary to acute presentation and severe underlying comorbidities, maintained on fall precautions, PT/OT/case management consulted for discharge planning #7. Chronic COPD with chronic hypoxic respiratory failure 4 L NC: Will maintain on home oxygen supplementation, continue ATC budesonide, PRN albuterol, HOB, IS parameters, encourage continued tobacco cessation, will continue chronic low- dose prednisone which he is on twice daily however would benefit from considering to transition off but currently blood sugars appropriate thus we will continue however outpatient this may need to be further assessed. #8. CAD: Status post PCI 03/25/2021, we will continue patient aspirin, Pradaxa, statin, metoprolol, losartan. #9. Hypertension: Continue home regimen including losartan, metoprolol, IV Bumex and metolazone as noted above transitioned off 07/27/2024 to home oral Lasix regimen, PRN hydralazine. #10. Hyperlipidemia: We will continue patient on statin therapy. #11. Hypothyroidism: We will continue patient home levothyroxine regimen, recent TSH within normal limits thus will not repeat #12. Diabetes mellitus type II, uncontrolled with chronic neuropathy with history of previous Chanel's gangrene: Recent hemoglobin A1c 06/22/24 11%, poorly controlled, blood sugar upon presentation 154, hold oral home regimen, nutrition consulted for education and teaching, ADA diet, accu checks w/ ISS, continue home gabapentin regimen, plan early follow-up with primary care physician will benefit from ongoing nutrition evaluation per their direction and frequent follow-up Q 3-month visits. #13. PAF: Sinus rhythm upon presentation, s/p pacemaker status but unclear exactly if this was for PAF or other etiology, continue metoprolol and Pradaxa home regimen. #14. Morbid Obesity: Weight loss and lifestyle changes encouraged, nutrition consulted. #15. GERD: We will continue patient on PPI. #16. Rheumatoid arthritis: As noted above patient on chronic prednisone, if symptoms are controlled certainly would benefit from consideration of de- escalation, continue as needed medications for symptom control. #17. Chronic normocytic anemia: Admission hemoglobin 10, MCV 84.1, baseline hemoglobin 9-10, 07/28/2024 hemoglobin 9.9, continue to trend. #18. Chronic Kidney Disease Stage II per GFR trending: Admission BUN/Cr 15/1.18, GFR 60, baseline renal function 1.1-1.2 primary, 07/27/24 BUN/creatinine 19/1.53, GFR 51, 07/27/2024 de-escalated off IV Bumex to home oral Lasix regimen. 07/29/2024 BUN/creatinine 26/1.57, GFR 49, mildly increased, not unexpected given recent prolonged IV Bumex drip. Will continue to trend. #19. DVT prophylaxis: Continue patient home Pradaxa regimen. #20. CODE status: Full Code. Medications at Discharge Home Medications albuterol sulfate 90 mcg/actuation aerosol inhaler (Ventolin HFA) 1 - 2 puff inhalation UD PRN Sob &/Or Wheezing 07/07/20 gabapentin 100 mg capsule 100 mg PO QHS PRN neuropathy 07/07/20 ammonium lactate 12 % topical cream 1 applic topical BID LEGS 08/16/22 aspirin 81 mg tablet,delayed release 81 mg PO DAILY HEART HEALTH 08/16/22 atorvastatin 40 mg tablet 40 mg PO QHS CHOLESTEROL 08/16/22 dabigatran etexilate 150 mg capsule (Pradaxa) 150 mg PO BID BLOOD THINNER 08/16/22 fluticasone propionate 50 mcg/actuation nasal spray,suspension 2 spray intranasal DAILY PRN Nasal Congestion 08/16/22 levothyroxine 150 mcg tablet 150 mcg PO DAILY THYROID 08/16/22 losartan 25 mg tablet 12.5 mg PO BID BLOOD PRESSURE 08/16/22 metoprolol tartrate 25 mg tablet 12.5 mg PO BID BLOOD PRESSURE 08/16/22 nystatin 100,000 unit/gram topical powder (Nyamyc) 1 applic topical BID SKIN FOLDS 08/16/22 prednisone 10 mg tablet 10 mg PO BID STEROID 08/16/22 cefdinir 300 mg capsule 300 mg PO DAILY prevents infection 06/29/24 diazepam 5 mg tablet 5 mg PO TID PRN PRN angina 06/29/24 ursodiol 250 mg tablet 250 mg PO BID Gallbladder 06/30/24 ascorbic acid (vitamin C) 500 mg tablet 500 mg PO DAILY 07/25/24 cholecalciferol (vitamin D3) 1,250 mcg (50,000 unit) capsule 1,250 mcg PO QWEEK 07/25/24 dulaglutide 0.75 mg/0.5 mL subcutaneous pen injector (Trulicity) 0.75 mg subcut QWEEK 07/25/24 furosemide 20 mg tablet 60 mg PO BID 07/25/24 furosemide 40 mg tablet 60 mg PO BID 07/25/24 glipizide 10 mg tablet, extended release 24 hr 10 mg PO BID 07/25/24 levothyroxine 125 mcg tablet 125 mcg PO DAILY 07/25/24 menthol 0.44 %-zinc oxide 20.6 % topical ointment (Calmoseptine) 1 applic topical QHS 07/25/24 metolazone 5 mg tablet 5 mg PO BID 07/25/24 omeprazole 40 mg capsule,delayed release 40 mg PO BID 07/25/24 ondansetron HCl 4 mg tablet 4 mg PO Q8H PRN PRN nausea 07/25/24 potassium chloride 20 mEq tablet,extended release(part/cryst) (Klor-Con M) 40 meq PO DAILY 07/25/24 sertraline 100 mg tablet 100 mg PO DAILY 30 days #30 tabs 07/29/24 Weight / BMI Weight Weight: 493 lb 6.312 oz Body Mass Index (BMI) 65.0 ABG / Lab / Microbiology Data 07/29/24 07:08 07/29/24 07:08 Laboratory: Laboratory Results - last 24 hr 07/28/24 11:48: POC Glucose 233 H 07/28/24 16:38: POC Glucose 213 H 07/29/24 06:28: POC Glucose 188 H 07/29/24 07:08: WBC 13.9 H, RBC 4.22 L, Hgb 9.8 L, Hct 35.6 L, MCV 84.4, MCH 23.2 L, MCHC 27.5 L, RDW Std Deviation 49.1 H, RDW Coeff of Kris 16.2 H, Plt Count 276, MPV 9.4, Immature Gran % (Auto) 0.900, Neut % (Auto) 72.0 H, Lymph % (Auto) 18.7 L, [place] % (Auto) 6.0, Eos % (Auto) 2.0, Baso % (Auto) 0.4, Absolute Neuts (auto) 10.0 H, Absolute Lymphs (auto) 2.59, Nucleated RBC % 0, Sodium 135 L, Potassium 3.0 L, Chloride 87 L, Carbon Dioxide 40.0 H, Anion Gap 8, BUN 26 H, Creatinine 1.57 H, Estim Creat Clear Calc 104.58, Est GFR (MDRD) Af Amer 59 L, E st GFR (MDRD) Non-Af 49 L, BUN/Creatinine Ratio 16.6, Glucose 194 H, Calcium 9.0, Total Bilirubin 0.90, AST 22, ALT 31, Alkaline Phosphatase 108, Total Protein 7.1, Albumin 2.6 L, Globulin 4.5 H, Albumin/Globulin Ratio 0.6 L 07/29/24 11:20: POC Glucose 226 H D/C Instructions Discharge Diet: - (Continue ADA 1800 calorie diet/Attempt 1750 cc free water daily maximum. This may need to be adjusted and potentially relaxed but best to attempt to continue. Please keep log of your diet intake to bring to your primary care and cardiology follow-up. ) May resume sexual activity in: 10-14 days Weight Bearing Status: Weight bearing as tolerated Keep extremity elevated above heart level: - (Please continue scrotal elevation with pillows in addition to bilateral lower extremity elevation ideally above the heart to assist with swelling prevention and decrease.) Call your doctor if you observe: Fever of 101 or Higher, Shortness of breath, Dizziness (Worsening.), Swelling in the ankles, Chest pain, Increased palpitations (irregular heartbeat), Calf discomfort, Uncontrolled pain and - (Weight gain > 5 lbs.) DC O2, CPAP, BIPAP Needs RN Home O2 Qualification: Home O2 Qualification: Is the patient on home oxygen Yes 07/28/24 10:40 Home O2 Qualification: AT REST 1-Pulse Ox at rest 99 07/28/24 10:40 1- Oxygen flow rate at rest 4 07/28/24 10:40 Home O2 Qualification: WITH AMBULATION 1- Pulse Ox with ambulation 94 07/28/24 10:40 1- Oxygen Flow Rate with 4 07/28/24 10:40 ambulation Home O2 Discharge instructions: Yes Type of respiratory needs?: Oxygen Oxygen frequency: Continuous Continuous oxygen liters per minute: 4 Meaningful Use Info Ischemic Stroke Statin Dosing Therapy Reference: STATIN DOSE THERAPY REFERENCE: * Patients > 75 years receive moderate or high dose statin therapy. * Patients 75 years or YOUNGER should receive HIGH intensity statin dose unless contraindicated. You will be required to document reason for non-treatment if statin daily dose does not meet guidelines. HIGH DOSE STATIN THERAPY DAILY Atorvastatin > than or = to 40 mg Rosuvastatin > than or = to 20 mg Amlodipine + Atorvastatin > than or = to 2.5/40 mg Ezetimibe + Simvastatin 10/80 mg Simvastatin 80mg Discharge Plan Admission Admit Date/Time: 07/25/24 12:47 Primary Reason for Your Visit: Acute HFpEF w/ Chronic Hypoxic Respiratory Failure, Depression Attending Provider: Mary Roberson Primary Care Provider: Ida Amaya Consulting Providers: Viktoriya Gross Instructions Patient Instructions: Heart Failure: Tracking Your Weight, Coping with Heart Failure, Heart Failure: Medications to Help Your Heart Additional Instructions / Restrictions: ADDITIONAL DISCHARGE INSTRUCTIONS/INFORMATION: #1. Significant anasarca, scrotal swelling, dyspnea progressively worsening secondary to Acute on Chronic HFpEF with chronic hypoxic respiratory failure complicated by underlying COPD, obesity hypoventilation syndrome as well as BERT: --Treated initially with bumex drip with notable weight decrease/diuresis eventually transitioned back to oral lasix regimen and ongoing metolazone oral regimen. --Encourage continued 2000 cc fluid intake restriction upon discharge although depending on weight trending this may need to be further adjusted. --Strongly encourage low sodium diet. --Strongly encourage continued bilaterally lower extremity elevation above your heart when seated and in bed. --Avoid sleeping in a chair as this will contribute to lower extremity and scrotal swelling. --Continue scrotal elevation with a pillow when seated for a prolonged time/sleeping as able to assist with continued swelling reduction. --Recent echocardiogram 06/29/2024 unfortunately with poor quality secondary to habitus with an EF of 65% and stage I diastolic dysfunction and mild concentric LVH thus not repeat. --Weight trending 07/25/2024 529 lbs-> 07/26/2024 519 lbs-> 07/27/2024 517 lbs- >07/28/24 501 lbs. --Encourage you to continue to perform daily weights at the same time of day, ideally in the AM upon awaking after using the restroom and keep a log to bring to your follow-up physician visits. In addition, if your weight increases by > 5 lbs please immediately contact your primary care physician or ideally the Cardiology office once established. --Please follow-up with Cardiology as requested to establish and also your primary care physician. --Please have follow-up basic metabolic panel at follow-up with primary care. #2. Uncontrolled depression, likely secondary to underlying comorbidities and #1: --During admission reporting depression, reports of fear of dying especially since recent pacemaker placement. --Started on SSRI Zoloft 100 mg at bedtime which can certainly be further adjusted as needed. --Recommend strongly outpatient counseling per primary care direction outpatient. #3. Intertrigo (Skin fold fungal infections): --Please continue nystatin regimen with skin fold care including twice daily gently soap/water cleansing, pat dry and then application of nystatin agent. --These folds must always be kept dry to prevent fungal infections. #4. Diabetes mellitus type II, uncontrolled with chronic neuropathy with history of previous Chanel's gangrene: --Recent hemoglobin A1c 06/22/24 11%, poorly controlled. --We strongly recommend ongoing outpatient nutrition/watch crystal molder evaluations and counseling per primary care direction given uncontrolled diabetes as well as #1 heart failure with need for education on a routine constant basis. #5. Chronic Kidney Disease Stage II per GFR trending: --Admission BUN/Cr 15/1.18, GFR 60, baseline renal function 1.1-1.2 primary. --Renal function trending further with 07/27/24 BUN/creatinine 19/1.53, GFR 51, 07/27/2024 de-escalated off IV Bumex to home oral Lasix regimen. 07/28/2024 BUN/creatinine 21/1.37, GFR 57-->07/29/24 BUN/Cr 26/1.57. --Encourage repeat basic metabolic panel at follow-up with primary care and also to assess potassium to assure appropriate level and monitor renal function and ascertain if lasix chronic regimen alteration needed. --You have been discharged on continued daily potassium supplementation but this may further need altered depending on follow-up labs and any further lasix regimen changes. Discharge Orders/Prescriptions Prescriptions: New sertraline 100 mg Tablet 100 mg PO DAILY 30 Days Qty: 30 0RF Continued gabapentin 100 MG capsule 100 mg PO QHS PRN (Reason: neuropathy) Patient Comments: 100-200mg albuterol sulfate [Ventolin HFA] 1 INHALER inhaler 1 - 2 puff INHALATION UD PRN (Reason: Sob &/Or Wheezing) Rx Instructions: INHALE 1 TO 2 PUFFS BY MOUTH AND INTO THE LUNGS EVERY 4 TO 6 HOURS NEEDED prednisone 10 mg Tablet 10 mg PO BID aspirin 81 mg tablet,delayed release (DR/EC) 81 mg PO DAILY levothyroxine 150 mcg tablet 150 mcg PO DAILY Rx Instructions: takes with 125mcg daily ammonium lactate 12 % cream 1 applic TOPICAL BID nystatin [Nyamyc] 100,000 unit/gram powder 1 applic TOPICAL BID Patient Comments: apply to affected area once daily to twice a day fluticasone propionate 50 mcg/actuation spray,suspension 2 spray INTRANASAL DAILY PRN (Reason: Nasal Congestion) Patient Comments: instill 2 sprays into each nostril once daily atorvastatin 40 mg tablet 40 mg PO QHS losartan 25 mg tablet 12.5 mg PO BID metoprolol tartrate 25 mg tablet 12.5 mg PO BID dabigatran etexilate [Pradaxa] 150 mg capsule 150 mg PO BID Rx Instructions: take 1 pill (150mg) in the morning then take 1 pill in the evening (150mg) for a total of 300mg. diazepam 5 mg tablet 5 mg PO TID PRN PRN (Reason: angina) ursodiol 250 mg tablet 250 mg PO BID furosemide 40 mg tablet 60 mg PO BID Rx Instructions: taking with 20mg for total daily dose of 60mg glipizide 10 mg tablet extended release 24hr 10 mg PO BID ondansetron HCl 4 mg tablet 4 mg PO Q8H PRN PRN (Reason: nausea) metolazone 5 mg tablet 5 mg PO BID omeprazole 40 mg capsule,delayed release(DR/EC) 40 mg PO BID potassium chloride [Klor-Con M20] 20 mEq tablet,ER particles/crystals 40 meq PO DAILY ascorbic acid (vitamin C) 500 mg tablet 500 mg PO DAILY levothyroxine 125 mcg tablet 125 mcg PO DAILY Rx Instructions: takes with 150mcg daily cholecalciferol (vitamin D3) 1,250 mcg (50,000 unit) capsule 1,250 mcg PO QWEEK furosemide 20 mg tablet 60 mg PO BID Rx Instructions: taking with 40mg for total daily dose of 60mg menthol-zinc oxide [Calmoseptine] 0.44-20.6 % ointment 1 applic topical QHS Held cefdinir 300 mg capsule 300 mg PO DAILY Hold Instructions: Resume on 08/05/24. Recommend discussions with PCP as unclear what this regimen is treating. If no acute infection would benefit from discontinuation. Trulicity 0.75 mg/0.5 mL pen injector 0.75 mg subcut QWEEK Hold Instructions: Resume on 08/05/24. Restart per your primary care direction. Patient Comments: ida amaya told pt to stop for now Referrals / Follow Up: Ida Amaya, DO [Primary Care Provider] - (Follow-up within 3-5 days to review admission and have repeat BMP. Also need to clarify with primary care physician ongoing cefdinir regimen daily.) Viviana Eduardo, PA [Med Staff - Adv Practice Prof] - 08/08/24 1:00 pm Disposition Disposition (needs filled in before D/C Order can be placed): Home Health Service
--- NOTE | 2024-07-29 13:05 | CASEMGMT ---
STANISLAW ANSARI NOTE: Discharge order is in. STANISLAW ANSARI to room. Pt states he feels ready to discharge home and states his mom was able to get their vehicle working, so she will be taking him home today. Call placed to call center and appt for van transport today cancelled. Pt would like [id number]. Austin in the pharmacy made aware. Pt states he has a PCP appt on Thursday @ 9 AM. Hannah has delivered portable O2 tank to his room for pt to go home on. Pt denies having further discharge needs/concerns. Call placed to Isabel @ [facility] and she was notified pt discharging home today. Karol ABRAHAM RN, CM
[2024-07-29 14:24] VITALS: BP 147/51; PULSE 85; RESP 18; TEMP 36.6; O2SAT 96
== END 2024-07-29 15:00 | disposition home health service (06) | DRG 194 ==
LOC: ED 13:02 → PCU 13:46
PROVIDERS: Admitting Provider Internal Medicine; Emergency Provider Emergency Medicine; PCP Family Medicine; Visit Provider Family Medicine
DX: I13.0 Hypertensive heart and chronic kidney disease with heart failure and stage 1 through stage 4 chronic kidney disease, or unspecified chronic kidney disease (principal); R62.7 Adult failure to thrive; E66.2 Morbid (severe) obesity with alveolar hypoventilation; D63.1 Anemia in chronic kidney disease; Z68.44 Body mass index [BMI] 60.0-69.9, adult; Z79.01 Long term (current) use of anticoagulants; E11.22 Type 2 diabetes mellitus with diabetic chronic kidney disease; I50.33 Acute on chronic diastolic (congestive) heart failure; J44.9 Chronic obstructive pulmonary disease, unspecified; M06.9 Rheumatoid arthritis, unspecified; F32.A Depression, unspecified; E03.9 Hypothyroidism, unspecified; J96.11 Chronic respiratory failure with hypoxia; I48.0 Paroxysmal atrial fibrillation; E11.40 Type 2 diabetes mellitus with diabetic neuropathy, unspecified; E78.5 Hyperlipidemia, unspecified; I25.10 Atherosclerotic heart disease of native coronary artery without angina pectoris; N18.2 Chronic kidney disease, stage 2 (mild); E87.6 Hypokalemia; K21.9 Gastro-esophageal reflux disease without esophagitis; L30.4 Erythema intertrigo; I25.2 Old myocardial infarction; N50.89 Other specified disorders of the male genital organs; R53.81 Other malaise; R53.1 Weakness; Z95.0 Presence of cardiac pacemaker; Z95.5 Presence of coronary angioplasty implant and graft; Z99.81 Dependence on supplemental oxygen; Z79.2 Long term (current) use of antibiotics; Z79.52 Long term (current) use of systemic steroids; Z79.84 Long term (current) use of oral hypoglycemic drugs; Z79.85 Long-term (current) use of injectable non-insulin antidiabetic drugs; Z79.890 Hormone replacement therapy; Z79.899 Other long term (current) drug therapy; Z87.2 Personal history of diseases of the skin and subcutaneous tissue; Z87.891 Personal history of nicotine dependence
CPT/HCPCS: 36415; 71046; 80048; 80053; 82803; 82962; 83735; 83880; 84100; 84484; 85025; 93005; 94640; 94668; 97116; 97162; 97166; 97530; 99252; 99285; 99406; A4216; G0463; J1940; J2405

== ENCOUNTER 2024-08-04 06:03 | Emergency (ER) | payer MEDICAID, SELFPAY ==
[2024-08-04] VITALS (17 sets, daily range): BP systolic 104–157; BP diastolic 51–96; PULSE 71–112; RESP 16–26; TEMP 36.6–36.8; O2SAT 91–100; BMI 65.9
--- NOTE | 2024-08-04 06:19 | CT_ITS ---
EXAM: CT ABDOMEN AND PELVIS WITH INTRAVENOUS CONTRAST CLINICAL INDICATION: Left groin and testicular pain/swelling TECHNIQUE: Helically acquired images were obtained of the abdomen and pelvis with intravenous contrast. This CT exam was performed using one or more of the following dose reduction techniques: automated exposure control, adjustment of the mA and/or kV according to patient size, and/or use of iterative reconstruction technique. CONTRAST: 100 cc of Isovue-370 IV. RADIATION DOSE: CTDIvol = 21.96 mGy, DLP = 3310.78 mGy-cm COMPARISON: No relevant prior studies available. FINDINGS: LOWER THORAX: Subsegmental atelectasis left lung base. No cardiomegaly. No significant pericardial effusion. ABDOMEN: LIVER: Unremarkable. Homogeneous. No focal mass. GALLBLADDER AND BILE DUCTS: Unremarkable. No calcified gallstones. No gallbladder distention or wall edema. No intra- or extrahepatic biliary ductal dilation. PANCREAS: Unremarkable. No focal cystic or solid mass. SPLEEN: Calcified granulomata in the spleen. ADRENALS: Unremarkable. No nodules. KIDNEYS AND URETERS: Simple left renal cyst. No follow-up of this simple cyst is necessary. Normal renal size and position. No hydronephrosis. STOMACH AND BOWEL: Unremarkable. No stomach or bowel distention. No focal inflammatory change. PELVIS: APPENDIX: No evidence of acute appendicitis. BLADDER: Unremarkable. REPRODUCTIVE: Unremarkable as visualized. No mass. ABDOMEN and PELVIS: INTRAPERITONEAL SPACE: Unremarkable. No ascites or other fluid collection. No free air. BONES/JOINTS: Unremarkable. No suspicious lytic or blastic abnormality. SOFT TISSUES: Walled off fluid collection measuring 8 x 5 x 4.5 cm in the perineum to the right of midline posterior to the base of the penis consistent with a perineal abscess. There is associated diffuse scrotal edema and edema of the medial thigh subcutaneous tissues bilaterally. No discrete abdominal or pelvic wall hernia. VASCULATURE: Unremarkable. Abdominal aorta is non-dilated. LYMPH NODES: Unremarkable. No enlarged lymph nodes. CT/Abdomen/Pelvis W IV Cont ONLY IMPRESSION: 1. Walled off fluid collection measuring 8 x 5 x 4.5 cm in the perineum to the right of midline posterior to the base of the penis consistent with a perineal abscess. There is associated diffuse scrotal edema and edema of the medial thigh subcutaneous tissues bilaterally. No soft tissue gas. 2. Subsegmental atelectasis left lung base. N.B. : The above Results were Read Back by Epi Scruggs MD to Darian Cash MD, and understanding confirmed on 08/04/2024 08:21:05 (ET). Electronically Signed: Epi Scruggs MD at 8:17 EST ,
--- NOTE | 2024-08-04 06:24 | EDS_ITS ---
HPI History of Present Illness Chief Complaint: Other, Pain/Inj Narrative Narrative: Chief complaint and HPI: Scrotal pain and swelling. 53-year-old male with past medical history of CKD, HFpEF, HTN, HLD, COPD/Morbid Obesity Hypoventilation Syndrome/BERT with associated Chronic Hypoxic Respiratory failure on 4L NC, CAD, HTN, HLD, Diabetes mellitus type II, history of previous Chanel's gangrene presents for evaluation of scrotal pain and swelling. History taken by patient as well as medical record. Patient was just recently admitted and discharged from the hospital on 07/29 for CHF exacerbation. Patient states at that time he had diffuse swelling including his scrotum. He states his swelling in his body overall improved including his scrotum during his hospital stay. He states however since discharge he has been having increased swelling in his scrotum and increased pain. He denies any fever, chills, chest pain, shortness of breath other than baseline, abdominal pain, vomiting, dysuria, bilateral lower extremity swelling other than baseline. He states that he is worried that he has an infection in his scrotum. Review of systems: See HPI Medications: As listed on the chart Allergies: As listed on the chart PFSH: Per chart Vital signs: As listed on the chart. Reviewed. Physical exam: Gen: A&O x3, NAD Head: Normocephalic, atraumatic Eyes: No sclera icterus, conjunctiva clear ENT: Moist mucous membranes Neck: Trachea midline, No JVD CV: RRR, no murmurs, bilateral peripheral edema Resp: Lungs CTA BL but diminished due to body habitus, no w/r/c, on 4 L nasal cannula GI: Morbidly obese, abd soft, non-distended, non-tender, no r/r/g : Penile shaft difficult to assess given the extensive swelling to the bilateral testicles. Testicles are mildly erythematous. Diffusely tender to palpation. Induration from swelling but no fluctuance or crepitus. No bullae, rash, ecchymosis. Musc: Moves all extremities, no deformity Skin: Warm Neuro: Alert, oriented, grossly intact, sensation intact Psych: Cooperative, appropriate mood and affect [facility] PFS Medical History Morbid obesity Anasarca Adult failure to thrive Former smoker History of diabetes mellitus History of anemia History of atrial fibrillation Chronic anticoagulation Hypothyroidism Diabetes Atrial fibrillation Pacemaker Myocardial infarct Depression PTSD (post-traumatic stress disorder) Leg pain Essential hypertension Atherosclerotic heart disease of [place] coronary artery without angina pectoris NSTEMI, initial episode of care Anxiety Chronic pain Kidney stones GERD (gastroesophageal reflux disease) Smoker On home oxygen therapy Sleep apnea Chest pain DVT (deep venous thrombosis) Left against medical advice Pain in scapula Ulcer of scrotum Non-healing surgical wound Colon polyps Hypothyroidism Goiter Chronic prescription benzodiazepine use Anemia Superficial thrombophlebitis of leg Chronic hypoxemic respiratory failure BERT (obstructive sleep apnea) COPD (chronic obstructive pulmonary disease) Chronic steroid use Family history of premature CAD HLD (hyperlipidemia) Intertrigo IBS (irritable bowel syndrome) Rheumatoid arthritis Super obesity 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 Home Medications ?Medication ?Instructions ?Recorded ?Last Taken ?Type albuterol sulfate 90 mcg/actuation 1 - 2 puff inhalation UD PRN Sob 07/07/20 08/11/22 History aerosol inhaler (Ventolin HFA) &/Or Wheezing gabapentin 100 mg capsule 100 mg PO QHS PRN neuropathy 07/07/20 07/24/24 History ammonium lactate 12 % topical cream 1 applic topical BID LEGS 08/16/22 07/24/24 History aspirin 81 mg tablet,delayed 81 mg PO DAILY HEART HEALTH 08/16/22 07/25/24 History release atorvastatin 40 mg tablet 40 mg PO QHS CHOLESTEROL 08/16/22 07/24/24 History dabigatran etexilate 150 mg 150 mg PO BID BLOOD THINNER 08/16/22 07/25/24 History capsule (Pradaxa) fluticasone propionate 50 2 spray intranasal DAILY PRN Nasal 08/16/22 Unknown History mcg/actuation nasal Congestion spray,suspension levothyroxine 150 mcg tablet 150 mcg PO DAILY THYROID 08/16/22 07/25/24 History losartan 25 mg tablet 12.5 mg PO BID BLOOD PRESSURE 08/16/22 07/25/24 History metoprolol tartrate 25 mg tablet 12.5 mg PO BID BLOOD PRESSURE 08/16/22 07/25/24 History nystatin 100,000 unit/gram topical 1 applic topical BID SKIN FOLDS 08/16/22 07/25/24 History powder (Nyamy) prednisone 10 mg tablet 10 mg PO BID STEROID 08/16/22 07/25/24 History cefdinir 300 mg capsule 300 mg PO DAILY prevents infection 06/29/24 07/24/24 History diazepam 5 mg tablet 5 mg PO TID PRN PRN angina 06/29/24 07/23/24 History ursodiol 250 mg tablet 250 mg PO BID Gallbladder 06/30/24 07/25/24 History ascorbic acid (vitamin C) 500 mg 500 mg PO DAILY 07/25/24 07/24/24 History tablet cholecalciferol (vitamin D3) 1,250 1,250 mcg PO QWEEK 07/25/24 07/23/24 History mcg (50,000 unit) capsule furosemide 20 mg tablet 60 mg PO BID 07/25/24 07/24/24 History furosemide 40 mg tablet 60 mg PO BID 07/25/24 07/24/24 History glipizide 10 mg tablet, extended 10 mg PO BID 07/25/24 07/25/24 History release 24 hr levothyroxine 125 mcg tablet 125 mcg PO DAILY 07/25/24 07/25/24 History menthol 0.44 %-zinc oxide 20.6 % 1 applic topical QHS 07/25/24 Unknown History topical ointment (Calmoseptine) metolazone 5 mg tablet 5 mg PO BID 07/25/24 07/25/24 History omeprazole 40 mg capsule,delayed 40 mg PO BID 07/25/24 07/25/24 History release ondansetron HCl 4 mg tablet 4 mg PO Q8H PRN PRN nausea 07/25/24 Unknown History potassium chloride 20 mEq 40 meq PO DAILY 07/25/24 07/25/24 History tablet,extended release(part/cryst) (Klor-Con M) sertraline 100 mg tablet 100 mg PO DAILY 30 days #30 tabs 07/29/24 Unknown Rx bumetanide 1 mg tablet 1 mg PO DAILY 08/04/24 Unknown History insulin glargine 100 unit/mL (3 20 unit subcut QHS 08/04/24 Unknown History mL) subcutaneous pen (Lantus Solostar U-100 Insulin) pen needle, diabetic 31 gauge x 08/04/24 Unknown History 5/16 (BD Ultra-Fine Short Pen Needle) silver sulfadiazine 1 % topical applic topical BID 08/04/24 Unknown History cream Allergy/AdvReac Type Severity Reaction Status Date / Time Penicillins Allergy Hives Verified 07/25/24 10:21 red dye Allergy Hives Verified 07/25/24 10:21 etanercept (From Enbrel) AdvReac Swelling Verified 07/25/24 10:21 rivaroxaban (From Xarelto) AdvReac Nausea Verified 07/25/24 10:21 warfarin sodium (From AdvReac Nausea Verified 07/25/24 10:21 Coumadin) Family History Mother Cancer Heart disease Kidney disease Hypertension Father Cancer Heart disease Kidney disease Hypertension Surgical History History of coronary artery stent placement (03/25/21) Social History household members: family Smoking Status: Former smoker alcohol intake: never substance use type: does not use EXAM Physical Exam Const Vital Signs: 08/04/24 06:05 08/04/24 06:07 08/04/24 06:12 Temperature 98 F 98 F Temperature Source Oral Oral Pulse Rate 105 H 105 H Respiratory Rate 22 H 22 H Respiratory Effort Normal Respiratory Pattern Tachypnea Blood Pressure 157/85 H 157/85 H Blood Pressure Mean 109 109 Pulse Ox 96 100 Oxygen Delivery Method Nasal Cannula Nasal Cannula Oxygen Flow Rate (L/min) 4 4 MDM MDM MDM Narrative Medical decision making narrative: 53-year-old male with multiple comorbidities including HFpEF and previous Chanel's gangrene presents for evaluation of bilateral testicle swelling and pain. See physical exam findings. On chart review, patient saw Dr. Cameron in November 2023 for Chanel's gangrene. Differential diagnosis includes but is not limited to dependent swelling from history of HFpEF, cellulitis, testicular abscess. I do not have ultrasound available in our emergency department at this time therefore CT abdomen pelvis ordered. Morphine and Zofran ordered for symptoms. Basic labs ordered. Patient is denying any other CHF symptoms and therefore CHF workup not performed. CBC shows a leukocytosis of 18.2. Patient has baseline anemia. Given his leukocytosis with possible infection we will give prophylactic Zosyn. Will hold off on further antibiotics until imaging resulted. BMP shows baseline hypokalemia and renal insufficiency as well as hyperglycemia. UA and CT abdomen pelvis pending at this time. Patient was signed out to oncoming physician. Final disposition pending results. Impression: 1. Scrotal swelling and pain 2. CKD 3. Chronic anemia Lab Data Labs: Laboratory Results - last 24 hr 08/04/24 06:39 WBC 18.2 H RBC 4.23 L Hgb 10.3 L Hct 36.1 L MCV 85.3 MCH 24.3 L MCHC 28.5 L RDW Std Deviation 51.4 H RDW Coeff of Kris 17.4 H Plt Count 295 MPV 9.5 Immature Gran % (Auto) 1.000 H Neut % (Auto) 81.0 H Lymph % (Auto) 12.3 L [place] % (Auto) 4.2 Eos % (Auto) 1.2 Baso % (Auto) 0.3 Absolute Neuts (auto) 14.8 H Absolute Lymphs (auto) 2.25 Nucleated RBC % 0 Sodium 137 Potassium 3.3 L Chloride 94 L Carbon Dioxide 35.0 H Anion Gap 8 BUN 21 H Creatinine 1.39 H Estim Creat Clear Calc 119.08 Est GFR (MDRD) Af Amer 68 Est GFR (MDRD) Non-Af 56 L BUN/Creatinine Ratio 15.1 Glucose 254 H Calcium 9.2 Discharge Plan Triage Chief Complaint: Other, Pain/Inj ED Provider: Aneudy Stanford Dx/Rx/DC Orders Prescriptions: No Action gabapentin 100 MG capsule 100 mg PO QHS PRN (Reason: neuropathy) Patient Comments: 100-200mg albuterol sulfate [Ventolin HFA] 1 INHALER inhaler 1 - 2 puff INHALATION UD PRN (Reason: Sob &/Or Wheezing) Rx Instructions: INHALE 1 TO 2 PUFFS BY MOUTH AND INTO THE LUNGS EVERY 4 TO 6 HOURS NEEDED prednisone 10 mg Tablet 10 mg PO BID aspirin 81 mg tablet,delayed release (DR/EC) 81 mg PO DAILY levothyroxine 150 mcg tablet 150 mcg PO DAILY Rx Instructions: takes with 125mcg daily ammonium lactate 12 % cream 1 applic TOPICAL BID nystatin [Nyamyc] 100,000 unit/gram powder 1 applic TOPICAL BID Patient Comments: apply to affected area once daily to twice a day fluticasone propionate 50 mcg/actuation spray,suspension 2 spray INTRANASAL DAILY PRN (Reason: Nasal Congestion) Patient Comments: instill 2 sprays into each nostril once daily atorvastatin 40 mg tablet 40 mg PO QHS losartan 25 mg tablet 12.5 mg PO BID metoprolol tartrate 25 mg tablet 12.5 mg PO BID dabigatran etexilate [Pradaxa] 150 mg capsule 150 mg PO BID Rx Instructions: take 1 pill (150mg) in the morning then take 1 pill in the evening (150mg) for a total of 300mg. cefdinir 300 mg capsule 300 mg PO DAILY diazepam 5 mg tablet 5 mg PO TID PRN PRN (Reason: angina) ursodiol 250 mg tablet 250 mg PO BID furosemide 40 mg tablet 60 mg PO BID Rx Instructions: taking with 20mg for total daily dose of 60mg glipizide 10 mg tablet extended release 24hr 10 mg PO BID ondansetron HCl 4 mg tablet 4 mg PO Q8H PRN PRN (Reason: nausea) metolazone 5 mg tablet 5 mg PO BID omeprazole 40 mg capsule,delayed release(DR/EC) 40 mg PO BID potassium chloride [Klor-Con M20] 20 mEq tablet,ER particles/crystals 40 meq PO DAILY ascorbic acid (vitamin C) 500 mg tablet 500 mg PO DAILY levothyroxine 125 mcg tablet 125 mcg PO DAILY Rx Instructions: takes with 150mcg daily cholecalciferol (vitamin D3) 1,250 mcg (50,000 unit) capsule 1,250 mcg PO QWEEK furosemide 20 mg tablet 60 mg PO BID Rx Instructions: taking with 40mg for total daily dose of 60mg menthol-zinc oxide [Calmoseptine] 0.44-20.6 % ointment 1 applic topical QHS sertraline 100 mg Tablet 100 mg PO DAILY 30 Days Qty: 30 0RF Patient Comments: pt says med makes him dizzy bumetanide 1 mg tablet 1 mg PO DAILY silver sulfadiazine 1 % cream TOPICAL BID (DME) pen needle, diabetic [BD Ultra-Fine Short Pen Needle] 31 gauge x 5/16 needle MISCELLANEOUS DAILY insulin glargine [Lantus Solostar U-100 Insulin] 100 unit/mL (3 mL) insulin pen 20 unit subcut QHS Primary Care Provider: Ida Norris Referrals: Ida Norris DO [Primary Care Provider] - Print Language: German
[2024-08-04] MEDS: Morphine 2 MG/ML Syringe IV (06:35)
[2024-08-04] MEDS: Ondansetron 4 MG/2 ML Vial IV (06:35)
[2024-08-04 06:45] LABS: Absolute Lymphocyte Count 2.25 X10^3/uL (0.83-4.51); Absolute Neutrophil Count 14.8 X10^3/uL (2.0-7.7); Basophil# 0.06 X10^3/uL; Basophil% 0.3 % (0-1); Eosinophil# 0.22 X10^3/uL; Eosinophils% 1.2 % (0-5); Hematocrit 36.1 % (40-54); Hemoglobin 10.3 g/dL (13.0-16.5); Lymphocyte # 2.25 X10^3/ul (0.83-4.51); Lymphocyte % 12.3 % (19-41); Mean Corp Hgb Conc 28.5 g/dL (32-36); Mean Corpuscular Hgb 24.3 pg (27.0-32.0); Mean Corpuscular Volume 85.3 fL (80-94); Mean Platelet Vol. 9.5 fl (6.2-12.0); Monocyte# 0.77 X10^3/uL; Monocyte% 4.2 % (0-10); NRBC Flagged by Analyzer 0 % (0-5); Neutrophil # 14.75 X10^3/uL (2.7-7.7); Platelet Count 295 K/mm3 (150-450); RBC Distribution Width CV 17.4 % (11.6-14.6); RBC Distribution Width SD 51.4 fl (35.1-43.9); Red Blood Count 4.23 M/mm3 (4.6-6.2); White Blood Count 18.2 K/mm3 (4.4-11.0)
[2024-08-04 07:11] LABS: Anion Gap 8 (5-15); BUN 21 mg/dL (7-18); BUN/Creat Ratio 15.1 RATIO (10-20); Calcium,Total 9.2 mg/dL (8.5-10.1); Chloride 94 mmol/L (98-107); Creatinine, Serum 1.39 mg/dL (0.70-1.30); EST Glomerular Filtration Rate 56 mL/min (>60); Est Glom Filt Rate - Afr Amer 68 mL/min (>60); Estimated Creatinine Clearance 119.08 ml/min; Glucose 254 mg/dL (74-106); Potassium 3.3 mmol/L (3.5-5.1); Sodium Level 137 mmol/L (136-145)
[2024-08-04] MEDS: Piperacil/Tazobactam 3.375 GM in 0.9% Normal Saline (50mL MB+) 50 ML IV (07:51)
[2024-08-04] MEDS: Morphine 4 MG/ML Syringe IV ×3 (08:44→15:17)
[2024-08-04 08:53] LABS: Mucous, Urine 0 SEEN /hpf (<or=2+)
[2024-08-04 09:24] LABS: Color, Urine Yellow (Yellow); Glucose, Dipstick 50 mg/dl (Normal); Ketone-Dipstick 5 mg/dl (Negative); Leukocyte Esterase-Dipstick 25 /ul (Negative); Nitrite-Dipstick Positive (Negative); Occult Blood-Urine 10 /ul (Negative); Protein-Dipstick 100 mg/dl (Negative); Urine Clarity Clear (Clear); Urine Urobilinogen 1 mg/dl (Normal); Urine pH 6.5 (5.0 - 8.0)
[2024-08-04 09:27] LABS: Urine Bilirubin Dipstick 1 mg/dL (Negative)
[2024-08-04 09:58] LABS: Red Blood Cells-Urine 0-5 SEEN /hpf (0-5); Squamous Epithelial Cells - UA 0-5 SEEN /hpf (0-5); White Blood Cells 0-5 SEEN /hpf (0-5)
[2024-08-04 09:59] LABS: Bacteria 2+ /hpf (None Seen)
--- NOTE | 2024-08-04 18:48 | ED.RN ---
THIS [employer]EDER ARRIVED AT 1830, TOLD BY [employer] TRANSPORT ETA WAS 1830. WAS TOLD IT WAS ALREADY PUSHED BACK MULTIPLE TIMES. CALLED AT 1834 ETA GIVEN WAS 60 MIN BY PHYSICIANS. STANISLAW TAVERA CALLED, ESCALATED TRANSPORT.
[2024-08-04] MEDS: Ketorolac 30 MG/ML Syringe IV (19:05)
--- NOTE | 2024-08-04 19:36 | ED.RN ---
THIS QUALITY CONTROL ANALYST CALLED PHYSICIANS 193, ETA PUSHED OUT AGAIN TO - REASON GIVEN WAS DUE TO PT SIZE THEY HAD TO CALL ANOTHER SQUAD FOR HELP.
--- NOTE | 2024-08-04 19:42 | ED.RN ---
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 Previous call had been made to oanh Drew to escalate situation.
--- NOTE | 2024-08-04 21:27 | ED.RN ---
This RN contacted daughter in listed contact to inform that pt's cane was left behnind
--- NOTE | 2024-08-04 21:28 | ED.RN ---
This RN contacted pt's daughter to inform her pt's cane was left at [facility] by physician's ambulance and will need to be picked up at her earliest convenience.
== END 2024-08-04 21:00 | disposition short-term general hospital (02) ==
LOC: ED 06:28
PROVIDERS: Emergency Provider Surgery; PCP Family Medicine; Visit Provider Surgery
DX: N49.2 Inflammatory disorders of scrotum (principal); I13.0 Hypertensive heart and chronic kidney disease with heart failure and stage 1 through stage 4 chronic kidney disease, or unspecified chronic kidney disease; I50.32 Chronic diastolic (congestive) heart failure; J44.9 Chronic obstructive pulmonary disease, unspecified; E66.01 Morbid (severe) obesity due to excess calories; E11.22 Type 2 diabetes mellitus with diabetic chronic kidney disease; N50.89 Other specified disorders of the male genital organs; Z87.891 Personal history of nicotine dependence; E78.5 Hyperlipidemia, unspecified; D64.9 Anemia, unspecified; N50.82 Scrotal pain; I25.10 Atherosclerotic heart disease of native coronary artery without angina pectoris; N18.9 Chronic kidney disease, unspecified
CPT/HCPCS: 74177; 80048; 81001; 85025; 87086; 87088; 96365; 96375; 96376; 99285; Q9967; A4216; J2405